=== PATIENT | female | born 1960 | race Two or more races ===

== ENCOUNTER 2020-04-19 08:32 | Emergency (ER) | payer MEDICAID, SELFPAY ==
[2020-04-19 08:42] VITALS: BP 125/78; PULSE 88; RESP 18; TEMP 36.8; O2SAT 97; BMI 26.5
--- NOTE | 2020-04-19 08:43 | ED.DENTAL ---
HPI - Dental/Oral General Chief complaint: Dental/Oral Stated complaint: dental pain Time Seen by Provider: 04/19/20 08:41 Source: patient Mode of arrival: ambulatory Limitations: no limitations History of Present Illness HPI Narrative: 59-year-old female borderline diabetic, status post extraction of 4 teeth last week ( right upper 2nd and 3rd molar, and right lower 2nd and 3rd molar ), patient was put on antibiotic clindamycin by the dentist for course of 5 days patient finished the course is still taste metal in her mouth with greenish discharge on the gum, but no discrete abscess. Patient supposed to see her dentist this week. Complaint: tooth pain Teeth map: 1. Right upper 2nd molar 2. right lower 3nd molar. 3. Right lower 2nd molar. 4. Right lower 3rd molar. Onset (ago): day(s) (7) Duration: constant Severity: moderate Severity scale (1-10): 10 ( Severe) Relieving factors: prescription analgesics Exacerbating factors: cold and heat Associated symptoms: other ( presents of white thrush in the roof of the mouth and on the tongue.) Related Data Previous Rx's Medication Instructions Recorded clindamycin HCl 150 mg PO TID #14 cap 04/19/20 nystatin 100,000 unit PO DAILY #60 ml 04/19/20 Allergies Allergy/AdvReac Type Severity Reaction Status Date / Time Penicillins Allergy Intermediate HIVES Unverified 03/20/20 15:25 sulfamethoxazole Allergy Intermediate BLISTERS- Unverified 03/20/20 15:25 [From BACTRIM] DELGADO - NERVE ENDINGS IN HAND/ERYTHEMA MULTIFORM trimethoprim [From BACTRIM] Allergy Intermediate BLISTERS- Unverified 03/20/20 15:25 DELGADO - NERVE ENDINGS IN HAND/ERYTHEMA MULTIFORM latex [Latex] Allergy Mild RASH Unverified 03/20/20 15:25 theophylline AdvReac Intermediate TACHYCARDIA Unverified 03/20/20 15:25 TEGADERM Allergy Intermediate SKIN TEARS Uncoded 03/20/20 15:25 From COMPAZINE AdvReac Severe SEIZURES Uncoded 03/20/20 15:25 Review of Systems Review of Systems: Yes all other systems are reviewed and are negative PMFSH Past Medical History Attestation statement: The following information was validated with the patient. Source: nursing notes reviewed Medical History (Updated 04/19/20 @ 09:00 by Oscar Telles MD) Borderline diabetes Surgical History (Updated 04/19/20 @ 08:44 by Agustina Araya RN) History of hysterectomy Social History Social History Alcohol intake: unknown Smoking Status: Current every day smoker Use of substances other than those prescribed or required for medical reasons: Unknown Advance Directives: No Advance Directives Information Provided: Yes Physical Exam Const: General: cooperative and healthy appearing Orientation/consciousness: oriented to person, oriented to place and oriented to time HENMT: Head: Yes normal to inspection Ears: hearing grossly normal bilaterally General nose exam: Normal external nose present Mouth: moist mucous membranes abnormal and other ( white thrush patches on roof of the mouth and on the tongue.) Throat: Yes posterior oropharynx normal Eyes: General: appearance normal, both eyes and all related structures Neck: Neck: Yes normal visual inspection and Yes no lymphadenopathy Chest: Chest palpation & inspection: normal inspection of the chest Resp: Effort & Inspection: normal respiratory effort Cardio: Jugular venous distension: no JVD GI: Inspection: Yes normal to inspection Skin: General skin exam: no rashes or lesions noted Neuro: General: oriented to person, oriented to place and oriented to time Extrem: General: Yes normal to inspection and Yes full ROM Course Course Course Narrative: 59-year-old female status post multiple dental extraction last week, patient finished a course of clindamycin ( cannot take penicillins for allergy), patient present with persistent of pain, potential persistent of infection for post extracted teeth and fungal stomatitis that is likely secondary to use of antibiotic. MDM - Dental/Oral MDM Narrative Medical decision making narrative: 59-year-old female borderline diabetes status post dental extraction recently, patient developed thrush stomatitis secondary to recent use of antibiotic, unfortunately patient is still need to use another 5 days of clindamycin for persistent of infection. 1. will prescribe another 5 days course of clindamycin. 2. neomycin for oral stomatitis. 3. To follow up primary dentist as patient is awaiting for calling in pain medication prescription. Differential Diagnosis Differential diagnosis: Likely gingival abscess, dental caries and toothache Medical Records Attestation: I reviewed the patient's medical records. Discharge Plan Discharge Clinical Impression: Toothache, Stomatitis Patient Disposition: Home, Self-Care Instructions: Gingivostomatitis (ED) Prescriptions: New nystatin 100,000 unit/mL suspension 100,000 unit PO DAILY Qty: 60 RF: 0 clindamycin HCl 150 mg capsule 150 mg PO TID Qty: 14 RF: 0
[2020-04-19] MEDS: oxyCODONE HCl Immed Release 5 MG TABLET PO (08:49)
== END 2020-04-19 09:15 | disposition home or self-care (01) ==
PROVIDERS: Emergency Provider Emergency Medicine; PCP Student in an Organized Health Care Education/Training Program
DX: K08.89 Other specified disorders of teeth and supporting structures (principal); K12.1 Other forms of stomatitis; F17.200 Nicotine dependence, unspecified, uncomplicated; R73.03 Prediabetes; Z86.718 Personal history of other venous thrombosis and embolism
CPT/HCPCS: 99283

== ENCOUNTER 2020-04-24 11:17 | Day surgery (SDC) | payer MEDICAID, SELFPAY ==
--- NOTE | 2020-04-23 10:33 | P.CONAN_ITS ---
Documented by User: Daily Aburto 04/23/20 10:38 HPI - Anesthesia Eval Consult details Narrative: 59yo F for EGD s/p gastric bypass 01/2019 last EGD with MAC 03/20/20 [facility] Past Medical History Medical History Anastomotic ulcer Anxiety Asthma Borderline diabetes Depression DVT (deep venous thrombosis) GERD (gastroesophageal reflux disease) High cholesterol Surgical History Surgical History History of hysterectomy S/P gastric bypass Social History Social History Alcohol intake: unknown Smoking Status: Current every day smoker Advance Directives: No Meds Allergies Allergy/AdvReac Type Severity Reaction Status Date / Time Penicillins Allergy Intermediate HIVES Verified 04/24/20 11:19 sulfamethoxazole Allergy Intermediate BLISTERS- Verified 04/24/20 11:19 [From BACTRIM] DELGADO - NERVE ENDINGS IN HAND/ERYTHEMA MULTIFORM trimethoprim [From BACTRIM] Allergy Intermediate BLISTERS- Verified 04/24/20 11:19 DELGADO - NERVE ENDINGS IN HAND/ERYTHEMA MULTIFORM latex [Latex] Allergy Mild RASH Verified 04/24/20 11:19 theophylline AdvReac Intermediate TACHYCARDIA Verified 04/24/20 11:19 TEGADERM Allergy Intermediate SKIN TEARS Uncoded 04/24/20 11:19 From COMPAZINE AdvReac Severe SEIZURES Uncoded 04/24/20 11:19 Exam Exam Date and Time: April 23, 2020 1033 Pertinent Lab Results Pertinent Lab Results: Laboratory Tests 02/01/20 02/01/20 00:37 00:37 WBC 7.7 Hgb 12.8 Hct 38.2 Plt Count 193 Sodium 141 Potassium 3.9 Chloride 105 BUN 15 Creatinine 0.74 Assessment and Plan Assessment Anesthesia Assessment: Chart Reviewed Documented by User: Dawson Peña 04/24/20 11:31 [facility] Past Medical History Medical History Anastomotic ulcer Anxiety Asthma Borderline diabetes Depression DVT (deep venous thrombosis) GERD (gastroesophageal reflux disease) High cholesterol Surgical History Surgical History History of hysterectomy S/P gastric bypass Social History Social History Alcohol intake: unknown Smoking Status: Current every day smoker Advance Directives: No Meds Allergies Allergy/AdvReac Type Severity Reaction Status Date / Time Penicillins Allergy Intermediate HIVES Verified 04/24/20 11:19 sulfamethoxazole Allergy Intermediate BLISTERS- Verified 04/24/20 11:19 [From BACTRIM] DELGADO - NERVE ENDINGS IN HAND/ERYTHEMA MULTIFORM trimethoprim [From BACTRIM] Allergy Intermediate BLISTERS- Verified 04/24/20 11:19 DELGADO - NERVE ENDINGS IN HAND/ERYTHEMA MULTIFORM latex [Latex] Allergy Mild RASH Verified 04/24/20 11:19 theophylline AdvReac Intermediate TACHYCARDIA Verified 04/24/20 11:19 TEGADERM Allergy Intermediate SKIN TEARS Uncoded 04/24/20 11:19 From COMPAZINE AdvReac Severe SEIZURES Uncoded 04/24/20 11:19 Exam Airway Mallampati Class: II TM Dist: >3cm Neck ROM: Full Loose/Missing/Broken Teeth: Yes Heart: [id number] Lungs: cta b/l Assessment and Plan Assessment Anesthesia Assessment: Anesthesia Plan Discussed, PAT Visit and Chart Reviewed Final Anesthetic Review NPO: Yes ASA Class: III Final Preanesthetic Review: No Changes in Pt Med Stat, Meds/Allgs Chart Reviewed, Consent Obtained/Reviewed and Anes Risks/Benef Reviewed Patient Risk: Low Procedure Risk: Low Assessment/Block/Sedation in SS: Assess/Block/Sedation-SS Anesthetic Plan Anesthetic Plan: MAC: Disposition: Standard PACU
--- NOTE | 2020-04-24 11:25 | P.HPSUR_ITS ---
Pre-Procedural Eval Section A The patient is an INPATIENT: No The History & Physical has been completed within 30 days and I have reviewed it.: Yes Section B Chief Complaint: ANASTOMIC ULCER Relevant Family History (Specify if Yes): No Relevant Social History: None Medical History: No relevant PMH History of Previous Operations: Relevant previous surgery/procedure and date(s) (laparoscopic gastric bypass) Allergies: Allergies Allergy/AdvReac Type Severity Reaction Status Date / Time Penicillins Allergy Intermediate HIVES Verified 04/24/20 11:19 sulfamethoxazole Allergy Intermediate BLISTERS- Verified 04/24/20 11:19 [From BACTRIM] DELGADO - NERVE ENDINGS IN HAND/ERYTHEMA MULTIFORM trimethoprim [From BACTRIM] Allergy Intermediate BLISTERS- Verified 04/24/20 11:19 DELGADO - NERVE ENDINGS IN HAND/ERYTHEMA MULTIFORM latex [Latex] Allergy Mild RASH Verified 04/24/20 11:19 theophylline AdvReac Intermediate TACHYCARDIA Verified 04/24/20 11:19 TEGADERM Allergy Intermediate SKIN TEARS Uncoded 04/24/20 11:19 From COMPAZINE AdvReac Severe SEIZURES Uncoded 04/24/20 11:19 Review of Systems Sugical H&P ROS: Negative: Constitution, Cardiovascular, Respiratory, Neurolog ical, Psychiatric, Hem-Onc, Allergic/Immunologic, Gastrointestinal, Genitourinary, Musculoskeletal, Integumentary, Endocrine and Eyes/Ears/Nose/Throat Exam Surgical H&P Exam: Normal: HEENT, Normal: Heart, Normal: Lungs, Normal: Extremities, Normal: Abdomen, Normal: Skin and Normal: Neurological Plan Diagnosis/Plan: Unchanged Patient has been examined and remains a candidate for the planned procedure
[2020-04-24 11:31] VITALS: BP 119/76; PULSE 75; RESP 16; TEMP 36.7; O2SAT 99; BMI 25.7
[2020-04-24] MEDS: Lactated Ringers 1,000 ML 100 ML IVCONT (11:47)
--- NOTE | 2020-04-24 12:04 | P.BOP_ITS ---
Brief Operative Note Date of procedure: 04/24/20 Pre-op diagnosis: Anastomotic ulcer Post-op diagnosis: other (Healed anastomotic ulcer) Procedure: PROCEDURE DATE: 07/19/2019 PREOPERATIVE DIAGNOSIS: Anastomotic ulcer, s/p gastric bypass POSTOPERATIVE DIAGNOSIS: Healed anastomotic ulcer PROCEDURE: [id number] Surgeon: Ronnie Pa M.D.. Ph.D. Property Management Specialist: None Anesthesia: IV sedation Estimated blood loss: None FINDINGS AND PROCEDURE: OPERATIVE INDICATIONS: The patient is a 59 year old female known to [place] who underwent a laparoscopic gastric bypass. The patient had excellent weight loss so far but developed an anastomotic ulcer for which she required TPN and IV PPI.. Based on this information I recommended an upper endoscopy for surveillance. Risks and complications of the surgery were discussed with the patient in advance particularly the possibility of perforation or bleeding that may require surgical intervention. The patient understood the risks and was in agreement with the plan. PROCEDURE: After informed consent was obtained by the patient, the patient was transferred to the Operating Room and was placed in the supine position. After successful induction of IV sedation, a mouth block was placed and the patient was placed in the left lateral decubitus position. An upper endoscopy was performed next, the oropharynx and esophagus appeared within the normal limits. There was no hiatal hernia. The z-line was smooth. The small pouch was entered, appeared to be of normal size. There was no gastritis and the gastrojejunostomy was patent. There was no anastomotic ulcer. At that point the scope was advanced into the proximal small intestine (proximal José Manuel limb) which appeared to be normal as well. The José Manuel limb and the pouch were decompressed and the scope was withdrawn from the patient's mouth. The patient was awaken and was transferred in stable condition to the Recovery Room for further care. I was present and performed all steps of the procedure. There were no residents to assist with this case. Ronnie Pa M.D., Ph.D. Surgeon: Donald Pa MD Anesthesia: MAC Estimated blood loss (mL): 0 IV fluids (mL): 300 Urine output (mL): 0 Pathology: none sent Condition: stable Disposition: PACU
[2020-04-24 12:09] VITALS: BP 96/60; PULSE 72; RESP 14; TEMP 36.2; O2SAT 100
[2020-04-24 12:13] VITALS: BP 92/55; PULSE 70; RESP 16; O2SAT 100
[2020-04-24 12:27] VITALS: BP 101/59; PULSE 67; RESP 16; TEMP 36.7; O2SAT 100
== END 2020-04-24 13:13 | disposition home or self-care (01) ==
PROVIDERS: PCP Student in an Organized Health Care Education/Training Program; Visit Provider Surgery
PROC: 0DJ08ZZ Inspection of Upper Intestinal Tract, Via Natural or Artificial Opening Endoscopic (ICD-10-PCS; CPT 43235; principal; 2020-04-24 12:10)
DX: K28.9 Gastrojejunal ulcer, unspecified as acute or chronic, without hemorrhage or perforation (principal); Z98.84 Bariatric surgery status; K21.9 Gastro-esophageal reflux disease without esophagitis; R73.03 Prediabetes; E78.00 Pure hypercholesterolemia, unspecified; J45.909 Unspecified asthma, uncomplicated; F32.9 Major depressive disorder, single episode, unspecified; F41.9 Anxiety disorder, unspecified; Z79.899 Other long term (current) drug therapy; Z88.0 Allergy status to penicillin; Z88.2 Allergy status to sulfonamides; Z91.040 Latex allergy status; Z88.8 Allergy status to other drugs, medicaments and biological substances
CPT/HCPCS: 43235

== ENCOUNTER 2020-05-13 09:08 | Outpatient (REF) | payer MEDICAID, SELFPAY ==
[2020-05-13 10:49] LABS: C Reactive Protein 0.05 mg/dL (< or = 0.50); Cholesterol 208 mg/dL; HDL Cholesterol 71 mg/dL; Iron 142 mcg/dL (30-160); LDL Cholesterol Calculated 123 mg/dl; Percent Iron Saturation 38 % (15-50); Phosphorus 3.5 mg/dL (2.7-4.5); Total Iron Binding Capacity 374 mcg/dL (228-428); Triglycerides 73 mg/dL; Unsaturated Iron Binding 232 ug/dL
[2020-05-13 10:59] LABS: Estimated Average Glucose 128 mg/dL; Hemoglobin A1C 150.4981 umol/L; Hemoglobin A1c % 6.1 %
[2020-05-13 11:13] LABS: TSH reflex Free T4 1.67 mIU/mL (0.32-4.0); Vitamin D 25-OH Total 18.6 ng/mL (>30)
[2020-05-13 11:18] LABS: Folate 11.3 ng/mL (> or = 4.0); Vitamin B12 304 pg/mL (200-900)
[2020-05-14 13:06] LABS: Calcium (PTHI) 9.5 mg/dL (8.6-10.4); PTHI 25 pg/mL (14-64)
[2020-05-15 11:12] LABS: Insulin Level Total 10.5 uIU/mL
[2020-05-16 15:57] LABS: Zinc 74 mcg/dL (60-130)
[2020-05-17 13:12] LABS: Vitamin B1 <6 nmol/L (8-30)
[2020-05-19 19:09] LABS: Vitamin A 49 mcg/dL (38-98)
== END 2020-05-13 09:09 | disposition home or self-care (01) ==
LOC: HO.LAB 09:08
PROVIDERS: PCP Student in an Organized Health Care Education/Training Program; Visit Provider Physician Assistant
DX: E66.3 Overweight (principal); Z68.35 Body mass index [BMI] 35.0-35.9, adult; Z98.84 Bariatric surgery status; M32.9 Systemic lupus erythematosus, unspecified; E66.9 Obesity, unspecified
CPT/HCPCS: 80061; 82306; 82607; 82746; 83036; 83525; 83540; 83735; 83970; 84100; 84425; 84443; 84590; 84630; 86140

== ENCOUNTER → 2020-05-16 08:37 | Outpatient (BNVA) | payer MEDICAID, SELFPAY | PROVIDERS: PCP Student in an Organized Health Care Education/Training Program; Visit Provider Dietitian, Registered | DX: Z76.89 Persons encountering health services in other specified circumstances (principal) ==

== ENCOUNTER → 2020-06-04 09:35 | Outpatient (BNVA) | payer MEDICAID, SELFPAY | PROVIDERS: PCP Student in an Organized Health Care Education/Training Program; Visit Provider Physician Assistant | DX: Z76.89 Persons encountering health services in other specified circumstances (principal) ==

== ENCOUNTER 2020-06-27 20:25 | Emergency (ER) | payer MEDICAID, SELFPAY ==
[2020-06-27 20:28] VITALS: BP 135/78; PULSE 79; RESP 16; TEMP 36.7; O2SAT 99; BMI 25.7
--- NOTE | 2020-06-27 21:14 | ED_ITS ---
HPI - Dental/Oral General Chief complaint: Dental/Oral Stated complaint: Dental pain Time Seen by Provider: 06/27/20 21:10 Source: patient Mode of arrival: ambulatory Limitations: no limitations History of Present Illness HPI Narrative: This is a 59-year-old female presents with worsening upper and lower dental discomfort 2 weeks status post removal of molars without any reported fevers, chills but increasing pain that she states is extending into her left ear. She has been unable to contact the dentist due to the holidays. She denies any difficulty swallowing or breathing. Related Data Home Medications Medication Instructions Recorded Confirmed sertraline 50 mg PO BEDTIME 04/24/20 06/04/20 hydrochlorothiazide 12.5 mg capsule 12.5 mg PO DAILY 05/09/20 06/04/20 pantoprazole 40 mg tablet,delayed 40 mg PO DAILY 05/09/20 06/04/20 release hydroxyzine HCl 25 mg tablet 50 mg PO BEDTIME tab 06/04/20 06/04/20 sucralfate 100 mg/mL oral 7.5 ml PO BID ml 06/04/20 06/04/20 suspension Previous Rx's Medication Instructions Recorded ondansetron HCl 4 mg tablet 4 mg PO Q8H PRN #60 tab 05/09/20 cholecalciferol (vitamin D3) 50 50 mcg PO DAILY #30 cap 05/15/20 mcg (2,000 unit) capsule sucralfate 1 gram tablet 1 g PO BID #60 tab 06/04/20 clindamycin HCl 600 mg PO TID 7 Days #42 cap 06/27/20 Allergies Allergy/AdvReac Type Severity Reaction Status Date / Time Penicillins Allergy Intermediate HIVES Verified 06/27/20 20:32 sulfamethoxazole Allergy Intermediate BLISTERS- Verified 06/27/20 20:32 [From BACTRIM] DELGADO - NERVE ENDINGS IN HAND/ERYTHEMA MULTIFORM trimethoprim [From BACTRIM] Allergy Intermediate BLISTERS- Verified 06/27/20 20:32 DELGADO - NERVE ENDINGS IN HAND/ERYTHEMA MULTIFORM latex [Latex] Allergy Mild RASH Verified 06/27/20 20:32 theophylline AdvReac Intermediate TACHYCARDIA Verified 06/27/20 20:32 TEGADERM Allergy Intermediate SKIN TEARS Uncoded 04/24/20 11:19 From COMPAZINE AdvReac Severe SEIZURES Uncoded 04/24/20 11:19 Review of Systems Review of Systems: Pertinent positives and negatives as stated in HPI 10 point review of systems otherwise negative. [facility] Past Medical History Source: nursing notes reviewed Medical History Anastomotic ulcer Anxiety Asthma Borderline diabetes Depression DVT (deep venous thrombosis) GERD (gastroesophageal reflux disease) High cholesterol Surgical History History of hysterectomy Hx of esophagogastroduodenoscopy S/P gastric bypass Family History Family History Unknown No problems noted. Mother Diabetes mellitus CHF (congestive heart failure) Kidney failure Cervical cancer Brother No problems noted. Brother No problems noted. Social History Social History Alcohol intake: never Smoking Status: Former smoker Cigarettes Per Day: 30 Smoked in Last 30 Days: No Use of substances other than those prescribed or required for medical reasons: No Advance Directives: No Advance Directives Information Provided: Yes Physical Exam Vital Signs: Vital Signs: Last Vital Signs Temp 98.0 F 06/27/20 20:28 Pulse 79 06/27/20 20:28 Resp 16 06/27/20 20:28 BP 135/78 06/27/20 20:28 Pulse Ox 99 06/27/20 20:28 Body Mass Index 25.7 VITAL SIGNS: Reviewed. GENERAL: Mild distress. HEAD: Normocephalic/atraumatic, EYES: PERRLA, EOMI EARS: Ext canals without abnormality, TMs non-bulging and non-erythematous NOSE: Nares patent bilateral OROPHARYNX: Sutures in place without purulence material on dental exam but gum tenderness noted at upper and lower without obvious evidence of abscess and no submental swelling NECK: Supple, no adenopathy LUNGS: Normal breath sounds. No adventitious sounds or accessory muscle use. SpO2<99> CARDIOVASCULAR: Regular rate and rhythm without noted murmurs, no JVD or lower extremity edema. ABDOMEN: Soft, non-tender, non-distended with bowel sounds. No rigidity. No guarding. No palpable masses or hernias noted MUSCULOSKELETAL: No tenderness, deformities, or effusions noted on gross inspection. EXTREMITIES: No cyanosis, clubbing or edema. SKIN: Inspection of the skin reveals no rashes, ulcerations, jaundice, pallor, or petechiae. NEUROLOGIC: Alert and oriented x 4. Strength and sensation to light touch were grossly intact x 4. Course Course Course Narrative: This is a 59-year-old female with suspected dental infection no evidence for Hosea's angina, trismus and patient will be treated with combination analgesics as well as initial antibiotics. On re-evaluation she stated that she is feeling much better and is being discharged in stable condition with a prescription for antibiotics and instructed to follow-up with her dentist in the morning. Discharge Plan Discharge Clinical Impression: Dental abscess Patient Disposition: Home, Self-Care Instructions: Dental Abscess (ED) Additional Instructions: 1. Tylenol 1000 mg, orally, every 6 hours as needed for pain control. Do not exceed 4000 mg within 24 hours. 2. Due to your gastric bypass surgery would recommend attempting to medicate any further pain with [id number] as well as ice packs and continue with antibiotics. 3. Please follow-up with your dentist in the morning. 4. Please do not hesitate to return the emergency department should you experience any worsening symptoms, fevers, chills, inability to swallow or difficulty breathing. Prescriptions: New clindamycin HCl 300 mg capsule 600 mg PO TID 7 Days Qty: 42 RF: 0 No Action cholecalciferol (vitamin D3) 50 mcg (2,000 unit) capsule 50 mcg PO DAILY Qty: 30 RF: 6 sertraline 50 mg Tablet 50 mg PO BEDTIME RF: 0 hydroxyzine HCl 25 mg tablet 50 mg PO BEDTIME RF: 0 sucralfate [Carafate] 1 gram tablet 1 g PO BID Qty: 60 RF: 6 hydrochlorothiazide 12.5 mg capsule 12.5 mg PO DAILY RF: 0 pantoprazole 40 mg tablet,delayed release (DR/EC) 40 mg PO DAILY RF: 0 ondansetron HCl 4 mg tablet 4 mg PO Q8H PRN (Reason: nausea and vomiting) Qty: 60 RF: 4 sucralfate [Carafate] 100 mg/mL suspension 7.5 ml PO BID RF: 0 Referrals: Joyce Tapia MD [Primary Care Provider] - 2 days (Re-evaluation dental inf ections status post extraction.)
[2020-06-27] MEDS: Acetaminophen 325 MG TABLET 975 MG PO (21:26)
[2020-06-27] MEDS: Ketorolac Tromethamine 15 MG/ML VIAL IM (21:27)
== END 2020-06-27 22:17 | disposition home or self-care (01) ==
PROVIDERS: Emergency Provider Student in an Organized Health Care Education/Training Program; PCP Student in an Organized Health Care Education/Training Program
DX: K04.7 Periapical abscess without sinus (principal)
CPT/HCPCS: 96372; 99284; J1885

== ENCOUNTER → 2020-07-02 08:35 | Outpatient (BNVA) | payer MEDICAID, SELFPAY | PROVIDERS: PCP Student in an Organized Health Care Education/Training Program; Visit Provider Physician Assistant | DX: Z76.89 Persons encountering health services in other specified circumstances (principal) ==

== ENCOUNTER 2020-07-22 16:10 | Outpatient (REF) | payer MEDICAID, SELFPAY | END 2020-07-22 16:11 | disposition home or self-care (01) | LOC: HO.LAB 16:10 | PROVIDERS: PCP Student in an Organized Health Care Education/Training Program; Visit Provider Student in an Organized Health Care Education/Training Program | DX: Z20.822 Contact with and (suspected) exposure to COVID-19 (principal) | CPT/HCPCS: 36415; C9803; U0003 ==

== ENCOUNTER 2020-08-14 09:32 | Day surgery (SDC) | payer MEDICAID, SELFPAY ==
--- NOTE | 2020-08-13 10:38 | P.CONAN_ITS ---
Documented by User: Daily Aburto 08/13/20 10:40 HPI - Anesthesia Eval Consult details Narrative: 59yo F for Upper Endoscopy s/p gastric bypass 01/2019 last EGD with MAC 04/24/20 [facility] Active Problems Active Problems: All Active Problems (Updated 06/28/20 @ 00:00 by Background Daemcornel) Anastomotic ulcer (Acute) S/P gastric bypass (Acute) Overweight (BMI 25.0-29.9) (Acute) Borderline diabetes (Acute) Past Medical History Medical History Anastomotic ulcer Anxiety Asthma Borderline diabetes Depression DVT (deep venous thrombosis) GERD (gastroesophageal reflux disease) High cholesterol Family History Family History Unknown No problems noted. Mother Diabetes mellitus CHF (congestive heart failure) Kidney failure Cervical cancer Brother No problems noted. Brother No problems noted. Surgical History Surgical History History of hysterectomy Hx of esophagogastroduodenoscopy S/P gastric bypass Social History Social History Alcohol intake: never Smoking Status: Former smoker Cigarettes Per Day: 30 Advance Directives: No Advance Directives Information Provided: Yes Meds Allergies Allergy/AdvReac Type Severity Reaction Status Date / Time Penicillins Allergy Intermediate HIVES Verified 06/27/20 20:32 sulfamethoxazole Allergy Intermediate BLISTERS- Verified 06/27/20 20:32 [From BACTRIM] DELGADO - NERVE ENDINGS IN HAND/ERYTHEMA MULTIFORM trimethoprim [From BACTRIM] Allergy Intermediate BLISTERS- Verified 06/27/20 20:32 DELGADO - NERVE ENDINGS IN HAND/ERYTHEMA MULTIFORM latex [Latex] Allergy Mild RASH Verified 06/27/20 20:32 theophylline AdvReac Intermediate TACHYCARDIA Verified 06/27/20 20:32 TEGADERM Allergy Intermediate SKIN TEARS Uncoded 04/24/20 11:19 From COMPAZINE AdvReac Severe SEIZURES Uncoded 04/24/20 11:19 Home Medications Medication Instructions Recorded Confirmed Last Taken Type sertraline 50 mg PO BEDTIME 04/24/20 07/02/20 Unknown History hydrochlorothiazide 12.5 mg capsule 12.5 mg PO DAILY 05/09/20 07/02/20 Unknown History pantoprazole 40 mg tablet,delayed 40 mg PO DAILY 05/09/20 07/02/20 Unknown Hist ory release hydroxyzine HCl 25 mg tablet 50 mg PO BEDTIME tab 06/04/20 07/02/20 Unknown History Exam Exam Date and Time: August 13, 2020 1038 Assessment and Plan Assessment Anesthesia Assessment: Chart Reviewed Documented by User: Dawson Peña 08/14/20 11:09 PMF Past Medical History Medical History Anastomotic ulcer Anxiety Asthma Borderline diabetes Depression DVT (deep venous thrombosis) GERD (gastroesophageal reflux disease) High cholesterol Family History Family History Unknown No problems noted. Mother Diabetes mellitus CHF (congestive heart failure) Kidney failure Cervical cancer Brother No problems noted. Brother No problems noted. Surgical History Surgical History History of hysterectomy Hx of esophagogastroduodenoscopy S/P gastric bypass Social History Social History Alcohol intake: never Smoking Status: Former smoker Cigarettes Per Day: 30 Advance Directives: No Advance Directives Information Provided: Yes Meds Allergies Allergy/AdvReac Type Severity Reaction Status Date / Time Penicillins Allergy Intermediate HIVES Verified 06/27/20 20:32 sulfamethoxazole Allergy Intermediate BLISTERS- Verified 06/27/20 20:32 [From BACTRIM] DELGADO - NERVE ENDINGS IN HAND/ERYTHEMA MULTIFORM trimethoprim [From BACTRIM] Allergy Intermediate BLISTERS- Verified 06/27/20 20:32 DELGADO - NERVE ENDINGS IN HAND/ERYTHEMA MULTIFORM latex [Latex] Allergy Mild RASH Verified 06/27/20 20:32 theophylline AdvReac Intermediate TACHYCARDIA Verified 06/27/20 20:32 TEGADERM Allergy Intermediate SKIN TEARS Uncoded 04/24/20 11:19 From COMPAZINE AdvReac Severe SEIZURES Uncoded 04/24/20 11:19 Home Medications Medication Instructions Recorded Confirmed Last Taken Type sertraline 50 mg PO BEDTIME 04/24/20 07/02/20 Unknown History hydrochlorothiazide 12.5 mg capsule 12.5 mg PO DAILY 05/09/20 07/02/20 Unknown History pantoprazole 40 mg tablet,delayed 40 mg PO DAILY 05/09/20 07/02/20 Unknown History release hydroxyzine HCl 25 mg tablet 50 mg PO BEDTIME tab 06/04/20 07/02/20 Unknown History Exam Airway Mallampati Class: II TM Dist: >3cm Neck ROM: Full Loose/Missing/Broken Teeth: No Heart: rrr+s1s2 Lungs: cta b/l Assessment and Plan Assessment Anesthesia Assessment: Anesthesia Plan Discussed, PAT Visit and Chart Reviewed Final Anesthetic Review NPO: Yes ASA Class: II Final Preanesthetic Review: No Changes in Pt Med Stat, Meds/Allgs Chart Reviewed, Consent Obtained/Reviewed and Anes Risks/Benef Reviewed Patient Risk: Intermediate Procedure Risk: Low Assessment/Block/Sedation in SS: Assess/Block/Sedation-SS Anesthetic Plan Anesthetic Plan: MAC: and Agree w/ Assess. and Plan Disposition: Standard PACU
--- NOTE | 2020-08-14 07:50 | P.HPSUR_ITS ---
Pre-Procedural Eval Section A The patient is an INPATIENT: No The History & Physical has been completed within 30 days and I have reviewed it.: No Section B Chief Complaint: postgastric surgery syndrome Details of Present Illness: abdominal pain at left upper quadrant Relevant Family History (Specify if Yes): No Relevant Social History: None Present Medications: see Short Stay Collaborative assessment Medical History: No relevant PMH History of Previous Operations: Relevant previous surgery/procedure and date(s) (history of gastric bypass & anastomotic ulcer) Allergies: Allergies Allergy/AdvReac Type Severity Reaction Status Date / Time Penicillins Allergy Intermediate HIVES Verified 06/27/20 20:32 sulfamethoxazole Allergy Intermediate BLISTERS- Verified 06/27/20 20:32 [From BACTRIM] DELGADO - NERVE ENDINGS IN HAND/ERYTHEMA MULTIFORM trimethoprim [From BACTRIM] Allergy Intermediate BLISTERS- Verified 06/27/20 20:32 DELGADO - NERVE ENDINGS IN HAND/ERYTHEMA MULTIFORM latex [Latex] Allergy Mild RASH Verified 06/27/20 20:32 theophylline AdvReac Intermediate TACHYCARDIA Verified 06/27/20 20:32 TEGADERM Allergy Intermediate SKIN TEARS Uncoded 04/24/20 11:19 From COMPAZINE AdvReac Severe SEIZURES Uncoded 04/24/20 11:19 Review of Systems Sugical H&P ROS: Negative: Constitution, Cardiovascular, Respiratory, N eurological, Psychiatric, Hem-Onc, Allergic/Immunologic, Genitourinary, Musculoskeletal, Integumentary, Endocrine and Eyes/Ears/Nose/Throat and Yes, Specify: Gastrointestinal (abdominal pain and nausea) Exam Surgical H&P Exam: Normal: HEENT, Normal: Heart, Normal: Lungs, Normal: Extremities, Normal: Skin and Normal: Neurological and Significant Findings: Ab domen (epigastric tenderness) Plan Diagnosis/Plan: Unchanged (Upper endoscopy to assess patient's symptoms) I have reviewed the history and physical and performed a pertinent physical examination on my patient. No changes have occurred unless specified.
--- NOTE | 2020-08-14 10:35 | PM.OP ---
Brief Operative Note Date of Service: 08/14/20 Pre-op diagnosis: Abdominal pain, s/p gastric bypass Post-op diagnosis: same Procedure: PROCEDURE DATE: 08/14/2020 PREOPERATIVE DIAGNOSIS: Abdominal pain, s/p gastric bypass POSTOPERATIVE DIAGNOSIS: Normal post bypass anatomy. Small hiatal hernia. PROCEDURE: [id number] Surgeon: Ronnie Pa M.D.. Ph.D. Human Resources Project Manager: None Anesthesia: IV sedation Estimated blood loss: Minimal FINDINGS AND PROCEDURE: OPERATIVE INDICATIONS: The patient is a 59 year old female known to nm who underwent a laparoscopic gastric bypass by nm. The patient had very good weight loss so far but had developed an anastomotic ulcer which required extensive treatment but eventually healed proven by endoscopy. Now she presents for a new occurrence of abdominal pain in the same area. Based on this information I recommended an upper endoscopy to evaluate the patient's symptoms. Risks and complications of the surgery were discussed with the patient in advance particularly the possibility of perforation or bleeding that may require surgical intervention. The patient understood the risks and was in agreement with the plan. PROCEDURE: After informed consent was obtained by the patient, the patient was transferred to the Operating Room and was placed in the supine position. After successful induction of IV sedation, a mouth block was placed and the patient was placed in the left lateral decubitus position. An upper endoscopy was performed next, the oropharynx and esophagus appeared within the normal limits. There was a small hiatal hernia. The z-line was smooth. The small pouch was entered, appeared to be of normal size. There was no gastritis and the gastrojejunostomy was patent. There was no anastomotic ulcer. At that point the scope was advanced into the proximal small intestine (proximal José Manuel limb) up to 75cm from incisors which appeared to be normal as well. The José Manuel limb and the pouch were decompressed and the scope was withdrawn from the patient's mouth. The patient was awaken and was transferred in stable condition to the Recovery Room for further care. I was present and performed all steps of the procedure. There were no residents to assist with this case. Ronnie Pa M.D., Ph.D. Surgeon: Donald Pa MD Anesthesia: MAC Estimated blood loss (mL): 0 IV fluids (mL): 400 Urine output (mL): 0 (No Dawn to record) Pathology: other (1) GE junction x2, distal esophagus x2, 3) gastric pouch x1) Condition: stable Disposition: PACU
[2020-08-14 11:13] VITALS: BP 124/66; PULSE 71; RESP 16; TEMP 36.6; O2SAT 99; BMI 26.5
[2020-08-14 11:18] LABS: Glucose, Whole Blood 84 mg/dL (60-115)
[2020-08-14] MEDS: Lactated Ringers 1,000 ML 100 ML IVCONT (11:23)
[2020-08-14 11:26] LABS: COVID-19 Test Negative (Negative); IDNOW Serial# 9DD0AD1C
[2020-08-14 11:53] VITALS: BP 102/64; PULSE 70; RESP 16; TEMP 36.4; O2SAT 99
[2020-08-14 12:09] VITALS: BP 107/65; PULSE 66; RESP 16; TEMP 36.4; O2SAT 97
[2020-08-14 12:51] VITALS: BP 116/67; PULSE 75; RESP 16; TEMP 36.4; O2SAT 98
== END 2020-08-14 13:15 | disposition home or self-care (01) ==
PROVIDERS: PCP Student in an Organized Health Care Education/Training Program; Visit Provider Surgery
PROC: 0DJ08ZZ Inspection of Upper Intestinal Tract, Via Natural or Artificial Opening Endoscopic (ICD-10-PCS; CPT 43235; principal; 2020-08-14 11:40)
DX: K91.1 Postgastric surgery syndromes (principal); R10.9 Unspecified abdominal pain; K44.9 Diaphragmatic hernia without obstruction or gangrene; Z87.19 Personal history of other diseases of the digestive system; Z98.84 Bariatric surgery status
CPT/HCPCS: 43235; 36415; 82947; 87635; J2250

== ENCOUNTER 2020-08-16 08:26 | Outpatient (REF) | payer MEDICAID, SELFPAY ==
--- NOTE | ~2020-08-16 | MM_ITS ---
EXAMINATION: MM SCREENING DIGITAL BREAST TOMOSYNTHESIS, BILATERAL CLINICAL INFORMATION: Screening. Asymptomatic. Chronic history hidradenitis suppurativa. The lifetime risk of breast cancer based on the Tyrer-Cuzick Model is 8%. COMPARISON: Mammography: 10/27/2018, 04/25/2017, 01/26/2016 TECHNIQUE: Digital breast tomosynthesis is performed in both the craniocaudal and mediolateral oblique views along with computer-aided detection (CAD). Synthesized 2D images are generated from the tomosynthesis. Additional left CC view is provided. FINDINGS: There are scattered areas of fibroglandular density (ACR BI-RADS breast composition Category b). There are no significant masses, abnormal calcifications, or other abnormalities. Parenchymal pattern is similar to prior exams. Axillary nodes are stable. The skin contours are smooth. No focal skin thickening. No coarsening of the Lonnie's ligaments. MM/MM tomosynthesis screening BI IMPRESSION: No significant changes from prior exams. ASSESSMENT: BI-RADS 2: Benign RECOMMENDATION: Routine annual mammography screening. This patient's information was entered into a reminder system with a target due date for their next mammogram.
== END 2020-08-16 08:27 | disposition home or self-care (01) ==
LOC: HO.MAMMO 08:26
PROVIDERS: Visit Provider Student in an Organized Health Care Education/Training Program
DX: Z12.31 Encounter for screening mammogram for malignant neoplasm of breast (principal)
CPT/HCPCS: 77063; 77067

== ENCOUNTER 2020-09-01 10:58 | Outpatient (REF) | payer MEDICAID, SELFPAY ==
[2020-09-03 21:22] LABS: TS Negative Control Passed; TS Panel A 0; TS Panel B 0; TS Positive Control Passed; TSpotTB Negative (SeeBelow)
== END 2020-09-01 10:59 | disposition home or self-care (01) ==
LOC: HO.LAB 10:58
PROVIDERS: PCP Student in an Organized Health Care Education/Training Program; Visit Provider Student in an Organized Health Care Education/Training Program
DX: Z11.1 Encounter for screening for respiratory tuberculosis (principal)
CPT/HCPCS: 36415; 86481

== ENCOUNTER → 2020-09-03 15:14 | Outpatient (BNVA) | payer MEDICAID, SELFPAY | PROVIDERS: PCP Student in an Organized Health Care Education/Training Program; Visit Provider Surgery | DX: L72.0 Epidermal cyst (principal) | CPT/HCPCS: 99212 ==

== ENCOUNTER 2020-09-15 06:11 | Day surgery (SDC) | payer MEDICAID, SELFPAY ==
[2020-09-09 09:33] VITALS: BMI 29.0
--- NOTE | 2020-09-12 08:43 | P.CONAN_ITS ---
Documented by User: Daily Criselda 09/12/20 08:45 HPI - Anesthesia Eval Consult details Narrative: 59yo F for Excision of Cysts x2, Upper Back and Right Groin s/p gastric bypass with mult egd PMFSH Active Problems Active Problems: All Active Problems (Updated 09/04/20 @ 14:32 by Flaco Zambrano MD) Overweight (BMI 25.0-29.9) (Acute) Epidermal inclusion cyst (Acute) Anastomotic ulcer (Acute) S/P gastric bypass (Acute) Borderline diabetes (Acute) Past Medical History Medical History Anastomotic ulcer Anxiety Asthma Borderline diabetes Depression DVT (deep venous thrombosis) GERD (gastroesophageal reflux disease) High cholesterol Family History Family History Unknown No problems noted. Mother Diabetes mellitus CHF (congestive heart failure) Kidney failure Cervical cancer Brother No problems noted. Brother No problems noted. Surgical History Surgical History History of hysterectomy Hx of esophagogastroduodenoscopy S/P gastric bypass Social History Social History Are you a primary career manager to a significant other at home: No Do you presently have visiting nurse or other home services: No Alcohol intake: never Smoking Status: Current some day smoker Cigarettes Per Day: 30 Years Smoked: 30 Smoked in Last 30 Days: Yes Use of substances other than those prescribed or required for medical reasons: No Have you been hit, kicked, punched, or otherwise hurt by someone within the past year? If so, by whom?: No Advance Directives Information Provided: No Recently lost weight without trying: No Meds Allergies Allergy/AdvReac Type Severity Reaction Status Date / Time Penicillins Allergy Intermediate HIVES Verified 09/15/20 06:45 sulfamethoxazole Allergy Intermediate BLISTERS- Verified 09/15/20 06:45 [From BACTRIM] DELGADO - NERVE ENDINGS IN HAND/ERYTHEMA MULTIFORM trimethoprim [From BACTRIM] Allergy Intermediate BLISTERS- Verified 09/15/20 06:45 DELGADO - NERVE ENDINGS IN HAND/ERYTHEMA MULTIFORM latex [Latex] Allergy Mild RASH Verified 09/15/20 06:45 theophylline AdvReac Intermediate TACHYCARDIA Verified 09/15/20 06:45 TEGADERM Allergy Intermediate SKIN TEARS Uncoded 04/24/20 11:19 From COMPAZINE AdvReac Severe SEIZURES Uncoded 04/24/20 11:19 Home Medications Medication Instructions Recorded Confirmed Last Taken Type sertraline 50 mg PO BEDTIME 04/24/20 09/09/20 Unknown History hydrochlorothiazide 12.5 mg capsule 12.5 mg PO DAILY 05/09/20 09/09/20 Unknown History hydroxyzine HCl 25 mg tablet 50 mg PO BEDTIME tab 06/04/20 09/09/20 Unknown History Exam Exam Date and Time: September 12, 2020 0843 Height,Weight and Vital Signs: Height 5 ft 3 in Weight 74.2 kg Pertinent Lab Results Pertinent Lab Results: Laboratory Tests 02/01/20 02/01/20 00:37 00:37 WBC 7.7 Hgb 12.8 Hct 38.2 Plt Count 193 Sodium 141 Potassium 3.9 Chloride 105 BUN 15 Creatinine 0.74 Assessment and Plan Assessment Anesthesia Assessment: Chart Reviewed Documented by User: Tamiko Pacheco 09/15/20 07:29 PMFSH Past Medical History Medical History Anastomotic ulcer Anxiety Asthma Borderline diabetes Depression DVT (deep venous thrombosis) GERD (gastroesophageal reflux disease) High cholesterol Family History Family History Unknown No problems noted. Mother Diabetes mellitus CHF (congestive heart failure) Kidney failure Cervical cancer Brother No problems noted. Brother No problems noted. Surgical History Surgical History History of hysterectomy Hx of esophagogastroduodenoscopy S/P gastric bypass Social History Social History Are you a primary career manager to a significant other at home: No Do you presently have visiting nurse or other home services: No Alcohol intake: never Smoking Status: Current some day smoker Cigarettes Per Day: 30 Years Smoked: 30 Smoked in Last 30 Days: Yes Use of substances other than those prescribed or required for medical reasons: No Have you been hit, kicked, punched, or otherwise hurt by someone within the past year? If so, by whom?: No Advance Directives Information Provided: No Recently lost weight without trying: No Meds Allergies Allergy/AdvReac Type Severity Reaction Status Date / Time Penicillins Allergy Intermediate HIVES Verified 09/15/20 06:45 sulfamethoxazole Allergy Intermediate BLISTERS- Verified 09/15/20 06:45 [From BACTRIM] DELGADO - NERVE ENDINGS IN HAND/ERYTHEMA MULTIFORM trimethoprim [From BACTRIM] Allergy Intermediate BLISTERS- Verified 09/15/20 06:45 DELGADO - NERVE ENDINGS IN HAND/ERYTHEMA MULTIFORM latex [Latex] Allergy Mild RASH Verified 09/15/20 06:45 theophylline AdvReac Intermediate TACHYCARDIA Verified 09/15/20 06:45 TEGADERM Allergy Intermediate SKIN TEARS Uncoded 04/24/20 11:19 From COMPAZINE AdvReac Severe SEIZURES Uncoded 04/24/20 11:19 Home Medications Medication Instructions Recorded Confirmed Last Taken Type sertraline 50 mg PO BEDTIME 04/24/20 09/09/20 Unknown History hydrochlorothiazide 12.5 mg capsule 12.5 mg PO DAILY 05/09/20 09/09/20 Unknown History hydroxyzine HCl 25 mg tablet 50 mg PO BEDTIME tab 06/04/20 09/09/20 Unknown History Exam Airway Mallampati Class: II TM Dist: >3cm Neck ROM: Full Loose/Missing/Broken Teeth: No Heart: RRR Lungs: CTA Assessment and Plan Assessment Anesthesia Assessment: Anesthesia Plan Discussed and Chart Reviewed Final Anesthetic Review NPO: Yes ASA Class: II Final Preanesthetic Review: Meds/Allgs Chart Reviewed, Consent Obtained/Reviewed and Anes Risks/Benef Reviewed Patient Risk: Low Procedure Risk: Low Anesthetic Plan Anesthetic Plan: GA Disposition: Standard PACU
[2020-09-15] VITALS (8 sets, daily range): BP systolic 106–138; BP diastolic 59–75; PULSE 67–77; RESP 16–18; TEMP 36.1–37.1; O2SAT 96–100
[2020-09-15 06:39] LABS: Glucose, Whole Blood 130 mg/dL (60-115)
[2020-09-15] MEDS: Lactated Ringers 1,000 ML 100 ML IVCONT (06:42)
[2020-09-15] MEDS: vancomycin HCL 1,000 MG in 0.9 % Sodium Chloride 250 ML 270 MG IV (06:43)
--- NOTE | 2020-09-15 07:17 | MHC.SHP ---
Pre-Procedural Eval Section A The patient is an INPATIENT: No Changes since office visit: Yes Patient answered all questions; No Cold of Flu in the past 2 weeks, No New Medical Problems and No Changes in Medication The History & Physical has been completed within 30 days and I have reviewed it.: Yes Section B Chief Complaint: Epidermal inclusion cyst Allergies: Allergies Allergy/AdvReac Type Severity Reaction Status Date / Time Penicillins Allergy Intermediate HIVES Verified 09/15/20 06:45 sulfamethoxazole Allergy Intermediate BLISTERS- Verified 09/15/20 06:45 [From BACTRIM] DELGADO - NERVE ENDINGS IN HAND/ERYTHEMA MULTIFORM trimethoprim [From BACTRIM] Allergy Intermediate BLISTERS- Verified 09/15/20 06:45 DELGADO - NERVE ENDINGS IN HAND/ERYTHEMA MULTIFORM latex [Latex] Allergy Mild RASH Verified 09/15/20 06:45 theophylline AdvReac Intermediate TACHYCARDIA Verified 09/15/20 06:45 TEGADERM Allergy Intermediate SKIN TEARS Uncoded 04/24/20 11:19 From COMPAZINE AdvReac Severe SEIZURES Uncoded 04/24/20 11:19 Review of Systems Sugical H&P ROS: Yes, Specify: Integumentary (New lesion in the lower left buttock) Exam Surgical H&P Exam: Not Evaluated: Skin (new lesion left buttock, patient requests excision) Plan Diagnosis/Plan: Change (I discussed excision of the new lesion of the left buttock as well and she gives her consent.) I have reviewed the history and physical and performed a pertinent physical examination on my patient. No changes have occurred unless specified.
--- NOTE | 2020-09-15 08:40 | P.BOP_ITS ---
Brief Operative Note Date of Service: 09/15/20 <NICHOLAS Garcia Last Filed: 09/15/20 08:41> Pre-op diagnosis: infected skin cysts of left back, left buttock and right groin <NICHOLAS Garcia Last Filed: 09/15/20 08:41> Post-op diagnosis: same <NICHOLAS Garcia Last Filed: 09/15/20 08:41> Procedure: Excision of infected skin cysts of left back, left buttock and right groin <NICHOLAS Garcia Last Filed: 09/15/20 08:41> Surgeon: OZZIE GUERRERO MD <NICHOLAS Garcia Last Filed: 09/15/20 08:41> Anesthesia: GETA <NICHOLAS Garcia Last Filed: 09/15/20 08:41> Chemical Compounder: Nata Leon <NICHOLAS Garcia Last Filed: 09/15/20 08:41> Estimated blood loss (mL): 5 <NICHOLAS Garcia Last Filed: 09/15/20 08:41> Pathology: other (infected skin cysts of left back, left buttock and right groin x 2) <NICHOLAS Garcia Last Filed: 09/15/20 08:41> Condition: stable <NICHOLAS Garcia Last Filed: 09/15/20 08:41> Disposition: PACU <NICHOLAS Garcia Last Filed: 09/15/20 08:41>
--- NOTE | 2020-09-15 08:40 | W.PM.OPN ---
Operative Note Operative Note Date of Service: 09/15/20 Narrative: Preoperative diagnosis: Infected skin cyst back, left buttock, right groin Postoperative diagnosis: Same Procedure: Excision of infected cyst upper back, left buttock, and right groin. Surgeon: Flaco Zambrano MD [employer]illery Operations Specialist: Nata Leon PA-C Anesthesia: General LMA Indications for procedure: 59-year-old female presenting with previous history of multiple skin infections status post previous excisions in the groin now presenting with an infected cyst x2 in the upper back, 1 cyst the left buttock, and 2 cysts in the right groin. She has requested excision of these because of the recurrent infections. Operative findings: Patient is found to have 2 previously infected cyst of the upper back each measuring 1 cm in diameter. In the right groin to adjacent cyst in the right groin were identified measuring approximately 0.5 cm in diameter. The left buttock cyst measured approximately 1 cm in diameter. Specimen: Infected cyst of upper back, left buttock and right groin Estimated blood loss: 2 mL Complications: None Procedure details: Patient was placed in a supine position and administered general anesthesia. Patient was then placed in a right lateral decubitus position. The patient's upper back and left buttock were prepped with Betadine and draped in a sterile fashion. A surgical time-out was called and consent confirmed. Patient received preoperative antibiotics and Venodyne boots were in place. Local anesthesia consisting of 0.5% Sensorcaine with epinephrine was then infiltrated around the 2 upper back lesions. Elliptical incision was then created with a scalpel carried out through subcutaneous tissue around the cyst lesion. Both lesions were excised and sent to pathology for further examination. Skin was then closed using interrupted 4 0 nylon sutures. Attention was then directed to the left buttock where again local anesthesia was administered around the lesion. An elliptical incision was then created with a scalpel carried out through subcutaneous tissue. The skin cyst was excised and sent to pathology for further examination. Skin was again closed using interrupted 4-0 nylon sutures. Patient was then placed in a supine position. The skin over the right groin was prepped with Betadine and draped in a sterile fashion. Local anesthesia consisting of 0.5% Sensorcaine with epinephrine was then infiltrated around the 2 right groin cyst. Again elliptical incisions were made around each lesion in lesions excised sent to pathology. Skin was closed in both incisions using interrupted 4-0 nylon sutures. Sterile dressings consisting of Tegaderm 2 x 2 gauze were applied to each of the excision sites. Patient tolerated the procedure well. Sponge, instrument, needle counts reported as correct. The patient was transferred to PACU in stable condition.
[2020-09-15] MEDS: Acetaminophen 325 MG TABLET 650 MG PO (09:29)
[2020-09-15] MEDS: oxyCODONE HCl Immed Release 5 MG TABLET PO (09:42)
== END 2020-09-15 10:39 | disposition home or self-care (01) ==
PROVIDERS: PCP Student in an Organized Health Care Education/Training Program; Visit Provider Surgery
PROC: (CPT 11402; principal; 2020-09-15 07:30)
DX: L72.0 Epidermal cyst (principal); J45.909 Unspecified asthma, uncomplicated; R73.03 Prediabetes; Z98.84 Bariatric surgery status; Z79.899 Other long term (current) drug therapy; Z91.040 Latex allergy status; Z88.0 Allergy status to penicillin; Z88.2 Allergy status to sulfonamides; Z88.8 Allergy status to other drugs, medicaments and biological substances
CPT/HCPCS: 11402; 11401 ×2; 11400; 82947; 88304; J1100; J2250; J2405; J3010; J3370

== ENCOUNTER → 2020-09-26 08:18 | Outpatient (BNVA) | payer MEDICAID, SELFPAY | PROVIDERS: PCP Student in an Organized Health Care Education/Training Program; Visit Provider Physician Assistant | DX: L72.0 Epidermal cyst (principal); E66.3 Overweight; Z68.27 Body mass index [BMI] 27.0-27.9, adult; Z98.84 Bariatric surgery status; Z71.3 Dietary counseling and surveillance; Z79.899 Other long term (current) drug therapy | CPT/HCPCS: 99212 ==

== ENCOUNTER → 2020-10-28 10:19 | Outpatient (BNVA) | payer MEDICAID, SELFPAY | PROVIDERS: PCP Student in an Organized Health Care Education/Training Program; Visit Provider Orthopaedic Surgery | DX: M65.332 Trigger finger, left middle finger (principal); M65.342 Trigger finger, left ring finger | CPT/HCPCS: 99202 ==

== ENCOUNTER 2020-10-28 21:21 | Emergency (ER) | payer MEDICAID, SELFPAY ==
--- NOTE | 2020-10-28 | ECG_ITS ---
Test Reason : CP Blood Pressure : / mmHG Vent. Rate : 074 BPM Atrial Rate : 074 BPM P-R Int : 158 ms QRS Dur : 074 ms QT Int : 366 ms P-R-T Axes : 011 033 032 degrees QTc Int : 406 ms Normal sinus rhythm Normal ECG When compared with ECG of 06-MAR-2020 20:20, No significant change was found Referred By: Generic ED Physician Electronically Signed By:RODNEY CALHOUN MD
[2020-10-28 21:39] VITALS: BP 110/62; PULSE 79; RESP 14; TEMP 36.4; O2SAT 98; BMI 26.5
== END 2020-10-29 01:59 | disposition left against medical advice (07) ==
PROVIDERS: Emergency Provider Emergency Medicine; PCP Student in an Organized Health Care Education/Training Program
DX: R07.9 Chest pain, unspecified (principal)
CPT/HCPCS: 93005; 99283

== ENCOUNTER 2020-11-22 22:29 | Emergency (ER) | payer MEDICAID, SELFPAY ==
[2020-11-22 22:58] VITALS: BP 130/74; PULSE 71; RESP 20; TEMP 36.9; O2SAT 98; BMI 26.5
--- NOTE | 2020-11-23 00:22 | ED.BACK ---
HPI - Back Pain/Injury General Chief Complaint: Back Pain/Injury Stated Complaint: Back pain Time Seen by Provider: 11/23/20 00:22 Source: patient Mode of arrival: ambulatory History of Present Illness HPI Narrative: 60-year-old female who reports onset of lower back pain that started yesterday morning when she woke up without any associated fever, chills, bowel or bladder dysfunction, patient states that pain radiates into the tops of both lower legs but is still able to ambulate. She denies any abdominal pain or urinary pain/burning/frequency. Related Data Home Medications Medication Instructions Recorded Confirmed sertraline 50 mg PO BEDTIME 04/24/20 09/26/20 hydrochlorothiazide 12.5 mg capsule 12.5 mg PO DAILY 05/09/20 09/26/20 hydroxyzine HCl 25 mg tablet 50 mg PO BEDTIME tab 06/04/20 09/26/20 ropinirole 1 mg tablet 1 mg PO BEDTIME 10/28/20 Previous Rx's Medication Instructions Recorded ondansetron HCl 4 mg tablet 4 mg PO Q8H PRN #60 tab 05/09/20 cholecalciferol (vitamin D3) 50 50 mcg PO DAILY #30 cap 05/15/20 mcg (2,000 unit) capsule sucralfate 1 gram tablet 1 g PO BID #60 tab 06/04/20 pantoprazole 40 mg tablet,delayed 40 mg PO BID #60 tab 09/09/20 release Allergies Allergy/AdvReac Type Severity Reaction Status Date / Time Penicillins Allergy Intermediate HIVES Verified 09/15/20 06:45 sulfamethoxazole Allergy Intermediate BLISTERS- Verified 09/15/20 06:45 [From BACTRIM] DELGADO - NERVE ENDINGS IN HAND/ERYTHEMA MULTIFORM trimethoprim [From BACTRIM] Allergy Intermediate BLISTERS- Verified 09/15/20 06:45 DELGADO - NERVE ENDINGS IN HAND/ERYTHEMA MULTIFORM latex [Latex] Allergy Mild RASH Verified 09/15/20 06:45 theophylline AdvReac Intermediate TACHYCARDIA Verified 09/15/20 06:45 TEGADERM Allergy Intermediate SKIN TEARS Uncoded 04/24/20 11:19 From COMPAZINE AdvReac Severe SEIZURES Uncoded 04/24/20 11:19 Review of Systems Review of Systems: Pertinent positives and negatives as stated in HPI and 10 point review of systems is otherwise negative. PENDING SALE TO [facility] Past Medical History Source: nursing notes reviewed Medical History Anastomotic ulcer Anxiety Asthma Borderline diabetes Depression DVT (deep venous thrombosis) GERD (gastroesophageal reflux disease) High cholesterol Surgical History History of hysterectomy Hx of esophagogastroduodenoscopy S/P gastric bypass Family History Family History Unknown No problems noted. Mother Diabetes mellitus CHF (congestive heart failure) Kidney failure Cervical cancer Brother No problems noted. Brother No problems noted. Social History Social History Alcohol intake: never Smoking Status: Current every day smoker Cigarettes Per Day: 30 Years Smoked: 30 Use of substances other than those prescribed or required for medical reasons: No Advance Directives: No Advance Directives Information Provided: No Patient : No Physical Exam Vital Signs: Vital Signs: Last Vital Signs Temp 98.5 F 11/22/20 22:58 Pulse 71 11/22/20 22:58 Resp 20 11/22/20 22:58 BP 130/74 11/22/20 22:58 Pulse Ox 98 11/22/20 22:58 Body Mass Index 26.5 VITAL SIGNS: Reviewed. GENERAL: Well developed, well nourished, in no acute distress. HEAD: Normocephalic/atraumatic EYES: PERRLA, EOMI NOSE: Nares patent bilateral OROPHARYNX: no oral lesions noted, posterior pharynx clear NECK: Supple, no adenopathy LUNGS: Normal breath sounds. No adventitious sounds or accessory muscle use. SpO2<98> CARDIOVASCULAR: Regular rate and rhythm without noted murmurs ABDOMEN: Soft, non-tender, non-distended with bowel sounds. BACK: Full range of motion, no midline vertebral tenderness, straight leg test negative, otherwise neurovascularly intact distal NEUROLOGIC: Alert and oriented x 4. Strength and sensation to light touch were grossly intact x 4. Course Course Course Narrative: This is a 60-year-old female with history and clinical presentation of acute on chronic back pain and will rule out possible UTI but low clinical suspicion and doubt any evidence for more serious conditions such as cauda equina or intra-abdominal pathology. Patient received combination analgesics and on review of urinalysis there is no evidence to suggest UTI. All results and findings were discussed with patient at bedside and on re-evaluation she has had some improvement of her symptoms. MDM - Back Pain/Injury Lab Data Labs: Lab Results 11/23/20 Range/Units 01:06 Urine Color DARK YELLOW Urine Appearance CLEAR Urine pH 6.0 (5.0-8.0) Ur Specific Dequincy 1.025 (1.005-1.025) Urine Protein NEG (NEG-TRACE) MG/DL Urine Glucose (UA) NEG (NEG) MG/DL Urine Ketones NEG (NEG) MG/DL Urine Blood NEG (NEG) Urine Nitrite NEG (NEG) Ur Leukocyte Esterase NEG (NEG) Discharge Plan Discharge Clinical Impression: Back pain Patient Disposition: Home, Self-Care Instructions: Back Pain (ED), Lower Back Exercises (ED) Additional Instructions: 1. Resume all home medications as prescribed. 2. Tylenol 1000 mg, orally, every 6 hours as needed for pain control. Do not exceed 4000 mg within 24 hours. 3. Ibuprofen 400 mg, orally with milk or food, every 6 hours as needed for pain control. 4. Follow-up with your primary care provider in the next 2-3 days for re-evaluation. Return to the emergency room for any acute worsening of your symptoms. Prescriptions: No Action cholecalciferol (vitamin D3) 50 mcg (2,000 unit) capsule 50 mcg PO DAILY Qty: 30 RF: 6 pantoprazole 40 mg tablet,delayed release (DR/EC) 40 mg PO BID Qty: 60 RF: 5 sertraline 50 mg Tablet 50 mg PO BEDTIME RF: 0 hydroxyzine HCl 25 mg tablet 50 mg PO BEDTIME RF: 0 sucralfate [Carafate] 1 gram tablet 1 g PO BID Qty: 60 RF: 6 hydrochlorothiazide 12.5 mg capsule 12.5 mg PO DAILY RF: 0 ondansetron HCl 4 mg tablet 4 mg PO Q8H PRN (Reason: nausea and vomiting) Qty: 60 RF: 4 Referrals: Joyce Tapia MD [Primary Care Provider] - 2 days
[2020-11-23] MEDS: Ketorolac Tromethamine 15 MG/ML VIAL IM (00:37)
[2020-11-23] MEDS: Lidocaine 4 % Patch ADH..PATCH 1 PATCH TRANSDERMA (00:37)
[2020-11-23 01:15] LABS: Glucose Urine UA NEG (NEG); Leukocyte Esterase Urine NEG (NEG); Nitrite Urine NEG (NEG); Specific Gravity - Urine 1.025 (1.005-1.025); Urine Blood NEG (NEG); Urine Ketones NEG (NEG); Urine Protein NEG (NEG-TRACE)
[2020-11-23 01:19] LABS: Appearance Urine CLEAR; Color Urine DARK YELLOW
== END 2020-11-23 01:54 | disposition home or self-care (01) ==
PROVIDERS: Emergency Provider Student in an Organized Health Care Education/Training Program; PCP Student in an Organized Health Care Education/Training Program
DX: M54.5 Low back pain (principal); F17.210 Nicotine dependence, cigarettes, uncomplicated; Z71.6 Tobacco abuse counseling; Z79.899 Other long term (current) drug therapy
CPT/HCPCS: 81003; 96372; 99284; J1885

== ENCOUNTER 2020-12-09 09:55 | Day surgery (SDC) | payer MEDICAID, SELFPAY ==
[2020-12-09 10:25] VITALS: BP 115/76; PULSE 71; RESP 16; TEMP 36.6; O2SAT 97; BMI 27.6
--- NOTE | 2020-12-09 11:16 | MHC.SHP ---
Pre-Procedural Eval Section B Chief Complaint: left middle and ring trigger finger Allergies: Allergies Allergy/AdvReac Type Severity Reaction Status Date / Time Penicillins Allergy Intermediate HIVES Verified 12/09/20 10:17 sulfamethoxazole Allergy Intermediate BLISTERS- Verified 12/09/20 10:17 [From BACTRIM] DELGADO - NERVE ENDINGS IN HAND/ERYTHEMA MULTIFORM trimethoprim [From BACTRIM] Allergy Intermediate BLISTERS- Verified 12/09/20 10:17 DELGADO - NERVE ENDINGS IN HAND/ERYTHEMA MULTIFORM latex [Latex] Allergy Mild RASH Verified 12/09/20 10:17 theophylline AdvReac Intermediate TACHYCARDIA Verified 12/09/20 10:17 TEGADERM Allergy Intermediate SKIN TEARS Uncoded 04/24/20 11:19 From COMPAZINE AdvReac Severe SEIZURES Uncoded 04/24/20 11:19 Plan I have reviewed the history and physical and performed a pertinent physical examination on my patient. No changes have occurred unless specified.
--- NOTE | 2020-12-09 11:16 | W.PM.OPN ---
Operative Note Operative Note Date of Service: 12/09/20 Narrative: Operative Note Preop diagnosis: 1. Left middle finger Trigger finger 2. Left ring finger trigger finger Postop diagnosis: Same Procedure: 1. Left middle finger A1 palmira release 2. Left ring finger A1 palmira release Surgeon: Jessy Bautista MD Anesthesia: local block using 1% lidocaine with epinephrine Findings: No locking or catching after A1 palmira release EBL: Less than 5 mL Tourniquet time: None Specimens: None Complications: None Disposition: Brought to recovery room in stable condition Plan: Follow-up for 7-10 days for wound check and suture removal Indications: The patient is 60 years old, with a left middle finger and left ring finger triggers that have been unresponsive to nonoperative management. The risks and benefits of operative treatment including but not limited to risk of damage to blood vessels, nerves, tendons, infection, persistent pain, persistent symptoms, recurrence or possible need for additional surgery were discussed with the patient and the patient wishes to proceed with surgery. Procedure: Once consent was obtained a local block was performed in the preop area using a combination of 1% lidocaine with epinephrine. The patient was then brought back to the operating suite and placed on the operative table in supine position. A tourniquet was applied to the proximal aspect of the left upper extremity and the limb was prepped and draped in a standard surgical fashion. Once assured that we had a good block, a 1.5 cm oblique incision was made centered over the A1 palmira of the left middle finger . The incision was made through the skin to the subcutaneous tissues using a #15 blade. Careful dissection was made down to the level of the A1 palmira using tenotomy scissors, with care being taken to protect the nearby neurovascular structures. A longitudinal incision was made in the A1 palmira 1st using a #15 blade, then using tenotomy scissors under direct visualization. The A1 palmira was noted to be thickened. Following our A1 palmira release, we no longer saw any locking or catching of the digit with flexion and extension. Once assured that we had a good block, a 1.5 cm oblique incision was made centered over the A1 palmira of the left ring finger . The incision was made through the skin to the subcutaneous tissues using a #15 blade. Careful dissection was made down to the level of the A1 palmira using tenotomy scissors, with care being taken to protect the nearby neurovascular structures. A longitudinal incision was made in the A1 palmira 1st using a #15 blade, then using tenotomy scissors under direct visualization. The A1 palmira was noted to be thickened. Following our A1 palmira release, we no longer saw any locking or catching of the digit with flexion and extension. Once satisfied with our A1 palmira release the wound was copiously irrigated with normal saline and hemostasis was obtained with a brief period of local pressure. The skin edges were reapproximated with some 5.0 nylon suture material and a sterile dressing was applied. The patient appears to have tolerated the procedure well and with no complications. All digits were well vascularized at the conclusion of the case.
[2020-12-09 12:14] VITALS: BP 104/5; PULSE 66; RESP 16; O2SAT 96
== END 2020-12-09 12:22 | disposition home or self-care (01) ==
PROVIDERS: PCP Student in an Organized Health Care Education/Training Program; Visit Provider Orthopaedic Surgery
PROC: (CPT 26055; principal; 2020-12-09 10:40)
DX: M65.332 Trigger finger, left middle finger (principal); M65.342 Trigger finger, left ring finger; E11.9 Type 2 diabetes mellitus without complications; J45.909 Unspecified asthma, uncomplicated; Z88.0 Allergy status to penicillin; Z88.2 Allergy status to sulfonamides
CPT/HCPCS: 26055 ×2

== ENCOUNTER → 2020-12-22 10:19 | Outpatient (BNVA) | payer MEDICAID, SELFPAY | PROVIDERS: Visit Provider Orthopaedic Surgery | DX: M65.342 Trigger finger, left ring finger (principal); M65.332 Trigger finger, left middle finger | CPT/HCPCS: 99212 ==

== ENCOUNTER 2020-12-25 13:00 | Outpatient (REF) | payer MEDICAID, SELFPAY ==
[2020-12-25 14:01] LABS: MANUAL DIFF FLAG NO
[2020-12-25 14:10] LABS: Basophils Percent Auto 0.3 % (0-2); Eosinophils Absolute Auto 0.2 X10*3/uL (0.0-0.4); Eosinophils Percent Auto 2.7 % (0-4); Hematocrit 39.9 % (37-47); Hemoglobin 13.2 g/dl (12.0-16.0); Imm Gran Abs Auto 0.02 X10*3/uL (0.00-0.03); Imm Gran Pct Auto 0.3 % (0.0-0.4); Lymphocytes Absolute Auto 2.4 X10*3/uL (1.2-4.9); Lymphocytes Percent Auto 30.9 % (20-40); Mean Corpuscular HGB Conc 33.1 g/dl (31.0-35.0); Mean Corpuscular Hemoglobin 28.8 pg (27.0-33.0); Mean Corpuscular Volume 87.1 fL (80-98); Mean Platelet Volume 10.2 fL (9.4-12.3); Monocytes Absolute Auto 0.5 X10*3/uL (0.1-1.2); Neutrophils Absolute Auto 4.6 X10*3/uL (2.0-8.3); Neutrophils Percent Auto 59.8 % (45-73); Platelet Count 233 X10*3/uL (160-400); Red Blood Count 4.58 X10*6/uL (4.20-5.50); Red Cell Distribution Width 12.7 % (11.0-16.0); White Blood Count 7.7 X10*3/uL (4.8-10.8)
[2020-12-25 14:36] LABS: Anion Gap 12 (12-20); Blood Urea Nitrogen 16 mg/dL (9-16); Calcium 9.4 mg/dL (8.4-10.2); Carbon Dioxide 30 mmol/L (22-29); Chloride 104 mmol/L (96-108); Estimated Glomerular Filt Rate > 60; Glucose Random 103 mg/dL (60-115); Iron 124 mcg/dL (30-160); Percent Iron Saturation 35 % (15-50); Potassium 4.3 mmol/L (3.3-5.1); Sodium 142 mmol/L (135-145); Total Iron Binding Capacity 355 mcg/dL (228-428); Unsaturated Iron Binding 231 ug/dL
[2020-12-25 14:49] LABS: Vitamin B12 804 pg/mL (200-900)
[2020-12-25 15:03] LABS: Ferritin 36 ng/mL (10-250); TSH reflex Free T4 1.84 uIU/mL (0.32-4.0); Vitamin D 25-OH Total 73.4 ng/mL (>30)
== END 2020-12-25 13:01 | disposition home or self-care (01) ==
LOC: HO.LAB 13:00
PROVIDERS: PCP Student in an Organized Health Care Education/Training Program; Referring Provider Student in an Organized Health Care Education/Training Program; Visit Provider Pediatrics
DX: M65.332 Trigger finger, left middle finger (principal); G25.81 Restless legs syndrome; E11.9 Type 2 diabetes mellitus without complications
CPT/HCPCS: 36415; 80048; 82306; 82550; 82607; 82728; 83540; 83735; 84443; 85025

== ENCOUNTER → 2020-12-31 11:43 | Outpatient (BNVA) | payer MEDICAID, SELFPAY | PROVIDERS: PCP Student in an Organized Health Care Education/Training Program; Visit Provider Internal Medicine Endocrinology, Diabetes & Metabolism | DX: E04.2 Nontoxic multinodular goiter (principal); E78.5 Hyperlipidemia, unspecified; E11.9 Type 2 diabetes mellitus without complications | CPT/HCPCS: 82947; 99212 ==

== ENCOUNTER 2021-01-02 22:56 | Emergency (ER) | payer MEDICAID, SELFPAY ==
[2021-01-02 22:59] VITALS: BP 111/78; PULSE 95; RESP 16; TEMP 36.1; O2SAT 99; BMI 27.6
--- NOTE | 2021-01-03 00:15 | PC.NURSE ---
PT TO ROOM #11 WITH C/O LEFT ARM PAIN D/T PREVIOUS SURGERY. PT ALSO C/O RIGHT EAR PAIN. PT ARRIVES ALERT, RESPIRATIONS EASY, N/L. SKIN W/D. PT AWAITING FOR MD'S EVAL.
--- NOTE | 2021-01-03 01:42 | ED.EAR ---
HPI - Ear Problem General Chief complaint: Ear Problems Stated complaint: multiple complaints Time Seen by Provider: 01/03/21 01:32 Source: patient Mode of arrival: ambulatory Limitations: no limitations History of Present Illness HPI Narrative: patient complaining of left ear pain for last 3 months seen her primary care doctor plan to see ENT been treated with prednisone and pain medication is still complaining of pain no ear discharge no hearing problem no tinnitus no fever no chills patient also complaining of pain in the left temporal area no vision problem Related Data Home Medications Medication Instructions Recorded Confirmed sertraline 50 mg PO BEDTIME 04/24/20 12/31/20 hydrochlorothiazide 12.5 mg capsule 12.5 mg PO DAILY 05/09/20 12/31/20 hydroxyzine HCl 25 mg tablet 50 mg PO BEDTIME tab 06/04/20 12/31/20 ropinirole 1 mg tablet 1 mg PO BEDTIME 10/28/20 12/31/20 Previous Rx's Medication Instructions Recorded ondansetron HCl 4 mg tablet 4 mg PO Q8H PRN #60 tab 05/09/20 sucralfate 1 gram tablet 1 g PO BID #60 tab 06/04/20 pantoprazole 40 mg tablet,delayed 40 mg PO BID #60 tab 09/09/20 release hydrocodone-acetaminophen 1 tab PO Q4-6H PRN #10 tab 12/09/20 cholecalciferol (vitamin D3) 50 50 mcg PO DAILY #30 cap 12/15/20 mcg (2,000 unit) capsule acarbose 25 mg tablet 25 mg PO TID 30 Days #90 tab 12/31/20 metformin 500 mg tablet,extended 500 mg PO DAILY 30 Days #30 tab 12/31/20 release 24 hr Allergies Allergy/AdvReac Type Severity Reaction Status Date / Time Penicillins Allergy Intermediate HIVES Verified 01/02/21 22:58 sulfamethoxazole Allergy Intermediate BLISTERS- Verified 01/02/21 22:58 [From BACTRIM] DELGADO - NERVE ENDINGS IN HAND/ERYTHEMA MULTIFORM trimethoprim [From BACTRIM] Allergy Intermediate BLISTERS- Verified 01/02/21 22:58 DELGADO - NERVE ENDINGS IN HAND/ERYTHEMA MULTIFORM latex [Latex] Allergy Mild RASH Verified 01/02/21 22:58 theophylline AdvReac Intermediate TACHYCARDIA Verified 01/02/21 22:58 TEGADERM Allergy Intermediate SKIN TEARS Uncoded 04/24/20 11:19 From COMPAZINE AdvReac Severe SEIZURES Uncoded 04/24/20 11:19 Review of Systems Review of Systems: Yes all other systems are reviewed and are negative [facility] Past Medical History Medical History (Updated 12/31/20 @ 12:13 by Robyn Tom MD) Anastomotic ulcer Anxiety Asthma Borderline diabetes Depression Diabetes type 2, controlled DVT (deep venous thrombosis) Dyslipidemia GERD (gastroesophageal reflux disease) High cholesterol History of restless legs syndrome Non-toxic multinodular goiter Surgical History (Updated 12/31/20 @ 11:59 by ADITYA Morton) History of hysterectomy Hx of esophagogastroduodenoscopy Hx of hand surgery S/P gastric bypass Family History Family History Unknown No problems noted. Mother Diabetes mellitus CHF (congestive heart failure) Kidney failure Cervical cancer Brother No problems noted. Brother No problems noted. Social History Social History Are you a primary attending ambulatory care to a significant other at home: No Do you presently have visiting nurse or other home services: No Alcohol intake: never Patient Tobacco Use Status: Current someday Tobacco user Cigarettes Per Day: 30 Years Smoked: 30 Advance Directives: No Advance Directives Information Provided: No Physical Exam Vital Signs: Vital Signs: Last Vital Signs Temp 97 F 01/02/21 22:59 Pulse 95 01/02/21 22:59 Resp 16 01/02/21 22:59 BP 111/78 01/02/21 22:59 Pulse Ox 99 01/02/21 22:59 Body Mass Index 27.6 Const: General: comfortable and no acute distress Orientation/consciousness: patient oriented x3 HENMT: Other: no tenderness over temporal artery bilateral no rash Head: Yes normal to inspection Ears: hearing grossly normal bilaterally, external ears normal, TM's normal bilaterally, TM normal on the right, TM normal on the left, EAC's normal, mastoids normal and no periauricular adenopathy General nose exam: Normal external nose present and Normal nares present Neck: Neck: Yes normal visual inspection and Yes no lymphadenopathy Resp: Effort & Inspection: normal respiratory effort Skin: General skin exam: no rashes or lesions noted Neuro: General: patient oriented x3 MDM - Ear MDM Narrative Medical decision making narrative: patient nonspecific pain in the left ear for 3 months already taken a course of prednisone clinically no signs of infection unable to explain the pain. Will check for sed rate to rule out temporal arteritis. If sed rate is normal patient will be discharged on pain medication advised to follow with ENT as scheduled. Discharge Plan Discharge Prescriptions: No Action pantoprazole 40 mg tablet,delayed release (DR/EC) 40 mg PO BID Qty: 60 RF: 5 cholecalciferol (vitamin D3) 50 mcg (2,000 unit) capsule 50 mcg PO DAILY Qty: 30 RF: 11 sertraline 50 mg Tablet 50 mg PO BEDTIME RF: 0 hydroxyzine HCl 25 mg tablet 50 mg PO BEDTIME RF: 0 hydrocodone-acetaminophen 5-325 mg tablet 1 tab PO Q4-6H PRN (Reason: pain) Qty: 10 RF: 0 sucralfate [Carafate] 1 gram tablet 1 g PO BID Qty: 60 RF: 6 metformin 500 mg tablet extended release 24 hr 500 mg PO DAILY 30 Days Qty: 30 RF: 5 acarbose 25 mg tablet 25 mg PO TID 30 Days Qty: 90 RF: 4 hydrochlorothiazide 12.5 mg capsule 12.5 mg PO DAILY RF: 0 ondansetron HCl 4 mg tablet 4 mg PO Q8H PRN (Reason: nausea and vomiting) Qty: 60 RF: 4 ropinirole 1 mg tablet 1 mg PO BEDTIME RF: 0
[2021-01-03] MEDS: oxyCODONE HCl Immed Release 5 MG TABLET 10 MG PO (01:52)
[2021-01-03 02:24] LABS: MANUAL DIFF FLAG NO
[2021-01-03 02:26] LABS: Basophils Percent Auto 0.3 % (0-2); Eosinophils Absolute Auto 0.3 X10*3/uL (0.0-0.4); Eosinophils Percent Auto 3.3 % (0-4); Hematocrit 39.1 % (37-47); Imm Gran Abs Auto 0.02 X10*3/uL (0.00-0.03); Imm Gran Pct Auto 0.2 % (0.0-0.4); Lymphocytes Absolute Auto 3.6 X10*3/uL (1.2-4.9); Lymphocytes Percent Auto 36.2 % (20-40); Mean Corpuscular HGB Conc 33.2 g/dl (31.0-35.0); Mean Corpuscular Volume 87.1 fL (80-98); Mean Platelet Volume 9.8 fL (9.4-12.3); Monocytes Absolute Auto 0.6 X10*3/uL (0.1-1.2); Monocytes Percent Auto 5.8 % (2-11); Neutrophils Absolute Auto 5.4 X10*3/uL (2.0-8.3); Neutrophils Percent Auto 54.2 % (45-73); Platelet Count 249 X10*3/uL (160-400); Red Blood Count 4.49 X10*6/uL (4.20-5.50); Red Cell Distribution Width 12.7 % (11.0-16.0); White Blood Count 9.9 X10*3/uL (4.8-10.8)
[2021-01-03 02:52] LABS: C Reactive Protein 0.07 mg/dL (< or = 0.50)
[2021-01-03 03:09] LABS: Erythrocyte Sedimentation Rate 7 MM/HR (0-20)
== END 2021-01-03 03:30 | disposition home or self-care (01) ==
PROVIDERS: Emergency Provider Internal Medicine; PCP Student in an Organized Health Care Education/Training Program
DX: H92.02 Otalgia, left ear (principal); E11.9 Type 2 diabetes mellitus without complications; J45.909 Unspecified asthma, uncomplicated; Z86.718 Personal history of other venous thrombosis and embolism; Z79.84 Long term (current) use of oral hypoglycemic drugs; Z79.899 Other long term (current) drug therapy
CPT/HCPCS: 36415; 85025; 85652; 86140; 99283

== ENCOUNTER → 2021-01-07 14:02 | Outpatient (BNVA) | payer MEDICAID, SELFPAY | PROVIDERS: PCP Student in an Organized Health Care Education/Training Program; Visit Provider Orthopaedic Surgery | DX: M65.332 Trigger finger, left middle finger (principal); M65.342 Trigger finger, left ring finger | CPT/HCPCS: 99212 ==

== ENCOUNTER 2021-01-13 10:22 | Day surgery (SDC) | payer MEDICAID, SELFPAY ==
--- NOTE | 2021-01-12 11:31 | P.CONAN_ITS ---
Documented by User: Daily Aburto 01/12/21 11:32 HPI - Anesthesia Eval Consult details Narrative: 60yo F for Left Ring finger and middle finger Extensor Tenotomy,ulnar slip SDS PMFSH Active Problems Active Problems: All Active Problems (Updated 01/04/21 @ 00:01 by Donnell Perez) Dyslipidemia (Acute) Non-toxic multinodular goiter (Acute) Diabetes type 2, controlled (Acute) Overweight (BMI 25.0-29.9) (Acute) Epidermal inclusion cyst (Acute) Trigger finger, left middle finger (Acute) Trigger finger, left ring finger (Acute) Anastomotic ulcer (Acute) S/P gastric bypass (Acute) Borderline diabetes (Acute) Past Medical History Medical History Anastomotic ulcer Anxiety Asthma Borderline diabetes Depression Diabetes type 2, controlled DVT (deep venous thrombosis) Dyslipidemia GERD (gastroesophageal reflux disease) High cholesterol History of restless legs syndrome Non-toxic multinodular goiter Family History Family History Unknown No problems noted. Mother Diabetes mellitus CHF (congestive heart failure) Kidney failure Cervical cancer Brother No problems noted. Brother No problems noted. Surgical History Surgical History History of hysterectomy Hx of esophagogastroduodenoscopy Hx of hand surgery S/P gastric bypass Social History Social History Are you a primary wild animal caretaker to a significant other at home: No Do you presently have visiting nurse or other home services: No Alcohol intake: never Patient Tobacco Use Status: Current someday Tobacco user Cigarettes Per Day: 30 Years Smoked: 30 Use of substances other than those prescribed or required for medical reasons: No Have you been hit, kicked, punched, or otherwise hurt by someone within the past year? If so, by whom?: No Are you DNR?: No Advance Directives: No Advance Directives Information Provided: Yes Meds Allergies Allergy/AdvReac Type Severity Reaction Status Date / Time Penicillins Allergy Intermediate HIVES Verified 01/13/21 11:04 sulfamethoxazole Allergy Intermediate BLISTERS- Verified 01/13/21 11:04 [From BACTRIM] DELGADO - NERVE ENDINGS IN HAND/ERYTHEMA MULTIFORM trimethoprim [From BACTRIM] Allergy Intermediate BLISTERS- Verified 01/13/21 11:04 DELGADO - NERVE ENDINGS IN HAND/ERYTHEMA MULTIFORM latex [Latex] Allergy Mild RASH Verified 01/13/21 11:04 theophylline AdvReac Intermediate TACHYCARDIA Verified 01/13/21 11:04 TEGADERM Allergy Intermediate SKIN TEARS Uncoded 01/13/21 11:04 From COMPAZINE AdvReac Severe SEIZURES Uncoded 01/13/21 11:04 Home Medications Medication Instructions Recorded Confirmed Last Taken Type sertraline 50 mg PO BEDTIME 04/24/20 12/31/20 Unknown History hydrochlorothiazide 12.5 mg capsule 12.5 mg PO DAILY 05/09/20 12/31/20 Unknown History hydroxyzine HCl 25 mg tablet 50 mg PO BEDTIME tab 06/04/20 12/31/20 Unknown History ropinirole 1 mg tablet 1 mg PO BEDTIME 10/28/20 12/31/20 Unknown History Exam Exam Date and Time: January 12, 2021 1131 Pertinent Lab Results Pertinent Lab Results: Laboratory Tests 12/25/20 01/03/21 13:10 02:16 WBC 9.9 Hgb 13.0 Hct 39.1 Plt Count 249 Sodium 142 Potassium 4.3 Chloride 104 Carbon Dioxide 30 H BUN 16 Creatinine 0.75 Narrative Narrative: EKG 10/2020 Vent. Rate : 074 BPM Atrial Rate : 074 BPM P-R Int : 158 ms QRS Dur : 074 ms QT Int : 366 ms P-R-T Axes : 011 033 032 degrees QTc Int : 406 ms Normal sinus rhythm Normal ECG When compared with ECG of 06-MAR-2020 20:20, No significant change was found Assessment and Plan Assessment Anesthesia Assessment: Chart Reviewed Documented by User: Joseph Venegas MD 01/13/21 12:38 PMFSH Past Medical History Medical History Anastomotic ulcer Anxiety Asthma Borderline diabetes Depression Diabetes type 2, controlled DVT (deep venous thrombosis) Dyslipidemia GERD (gastroesophageal reflux disease) High cholesterol History of restless legs syndrome Non-toxic multinodular goiter Family History Family History Unknown No problems noted. Mother Diabetes mellitus CHF (congestive heart failure) Kidney failure Cervical cancer Brother No problems noted. Brother No problems noted. Surgical History Surgical History History of hysterectomy Hx of esophagogastroduodenoscopy Hx of hand surgery S/P gastric bypass Social History Social History Are you a primary wild animal caretaker to a significant other at home: No Do you presently have visiting nurse or other home services: No Alcohol intake: never Patient Tobacco Use Status: Current someday Tobacco user Cigarettes Per Day: 30 Years Smoked: 30 Use of substances other than those prescribed or required for medical reasons: No Have you been hit, kicked, punched, or otherwise hurt by someone within the past year? If so, by whom?: No Are you DNR?: No Advance Directives: No Advance Directives Information Provided: Yes Meds Allergies Allergy/AdvReac Type Severity Reaction Status Date / Time Penicillins Allergy Intermediate HIVES Verified 01/13/21 11:04 sulfamethoxazole Allergy Intermediate BLISTERS- Verified 01/13/21 11:04 [From BACTRIM] DELGADO - NERVE ENDINGS IN HAND/ERYTHEMA MULTIFORM trimethoprim [From BACTRIM] Allergy Intermediate BLISTERS- Verified 01/13/21 11:04 DELGADO - NERVE ENDINGS IN HAND/ERYTHEMA MULTIFORM latex [Latex] Allergy Mild RASH Verified 01/13/21 11:04 theophylline AdvReac Intermediate TACHYCARDIA Verified 01/13/21 11:04 TEGADERM Allergy Intermediate SKIN TEARS Uncoded 01/13/21 11:04 From COMPAZINE AdvReac Severe SEIZURES Uncoded 01/13/21 11:04 Home Medications Medication Instructions Recorded Confirmed Last Taken Type sertraline 50 mg PO BEDTIME 04/24/20 12/31/20 Unknown History hydrochlorothiazide 12.5 mg capsule 12.5 mg PO DAILY 05/09/20 12/31/20 Unknown History hydroxyzine HCl 25 mg tablet 50 mg PO BEDTIME tab 06/04/20 12/31/20 Unknown History ropinirole 1 mg tablet 1 mg PO BEDTIME 10/28/20 12/31/20 Unknown History Exam Airway Mallampati Class: I TM Dist: >3cm Neck ROM: Full Loose/Missing/Broken Teeth: No Assessment and Plan Assessment Anesthesia Assessment: Anesthesia Plan Discussed and Chart Reviewed Final Anesthetic Review NPO: Yes ASA Class: II Final Preanesthetic Review: No Changes in Pt Med Stat, Meds/Allgs Chart Reviewed, Consent Obtained/Reviewed and Anes Risks/Benef Reviewed Patient Risk: Low Procedure Risk: Low Anesthetic Plan Anesthetic Plan: GA Disposition: Standard PACU
[2021-01-13] VITALS (11 sets, daily range): BP systolic 115–149; BP diastolic 65–98; PULSE 62–79; RESP 12–18; TEMP 36.1–36.3; O2SAT 94–100; BMI 27.3
--- NOTE | 2021-01-13 09:58 | P.OP_ITS ---
Operative Note Operative Note Date of Service: 01/13/21 Narrative: Operative Note Narrative: Preop diagnosis: 1. Left ring finger trigger finger status post A1 palmira release 2. Left middle finger trigger finger status post A1 palmira release Postop diagnosis: Same Procedure: 1. Left ring finger tenotomy of ulnar slip of FDS tendon 2. Left ring finger FDS and FDP tenosynovectomy 3. Left middle finger tenotomy of ulnar slip of FDS tendon 4. Left middle finger FDS and FDP tenosynovectomy Surgeon: Jessy Bautista MD Anesthesia: Mac plus regional block Findings: Hypertrophic tenosynovium about the flexor tendons in both the middle and ring fingers. Specimens from both were sent for culture. No locking or catching with passive flexion and extension of the ring and middle fingers following the above procedures. Implants: none Tourniquet time: 49 minutes EBL: 5.0 ml Specimen: Specimens from the hypertrophic tenosynovium about the flexor tendons in both the middle and ring fingers were sent for Gram stain, aerobic and anaerobic AFB and fungal cultures. Drains: None Complications: None Disposition: Brought to the recovery room in stable condition Plan: Follow-up in 10-14 days for wound check, suture removal and to check pathology and cultures Early OT hand therapy for range of motion and also to decrease hypersensitivity after wound healing. Indications: The patient is a [age] year old woman with persistent p ain, crepitus, locking and catching of the left ring and middle fingers following A1 palmira releases . The risks and benefits of operative treatment, including but not limited to risk of damage to blood vessels, nerves, tendons, infection, recurrence, persistent pain or numbness, incomplete resolution of preoperative symptoms, or need for further surgery were discussed with the patient and they wished to proceed with surgery. Procedure: Once consent was obtained patient was brought back to the operating suite and placed in the operating table in a supine position. . Perioperative antibiotics and anesthesia was administered by the anesthesia team. A tourniquet was applied to the proximal aspect of the left upper extremity and the limb was prepped and draped in a standard surgical fashion. The limb was elevated exsanguinated with Esmarch bandage and the tourniquet inflated to 250 mm of mercury for a total tourniquet time of 49 minutes. An interrupted Rocio incision was made over the volar aspect of the left ring finger between the A4 palmira and the A1 palmira. The incision was made through the skin to the subcutaneous tissues using a 15. Blade. Careful dissection was made down to the level of the A1 palmira. The newly forming tendon sheath in this area was opened longitudinally using a 15. Blade and tenotomy scissors under direct visualization. She had some grayish appearing hypertrophic tenosynovium about the FDS and FDP tendons. A tenosynovectomy was performed excising this material using tenotomy scissors, and sending it for culture. More distally I also dissected down to the level of the flexor tendon sheath at the A3 and distal aspect of the A2 pulleys. The flexor tendon sheath was opened at the A3 palmira longitudinally using tenotomy scissors. The distal aspect of the ulnar slip of the FDS tendon was appreciated and was tenotomized at its insertion using a 15. Blade and tenotomy scissors. I then used tenotomy scissors to separate the attachments between the ulnar and radial slips of the FDS tendon. The ulnar slip was then withdrawn back into the A1 palmira area, and an angled cut was made tenotomizing the ulnar slip from the FDS tendon at its proximal aspect. The slip of tendon was then placed on the back table to be sent back for pathology. The digit was then brought through passive flexion and extension and no locking or catching was appreciated. An interrupted Rocio incision was made over the volar aspect of the left Middle finger between the A4 palmira and the A1 palmira. The incision was made through the skin to the subcutaneous tissues using a 15. Blade. Careful dissection was made down to the level of the A1 palmira. The newly forming tendon sheath in this area was opened longitudinally using a 15. Blade and tenotomy scissors under direct visualization. She had some grayish appearing hypertrophic tenosynovium about the FDS and FDP tendons. A tenosynovectomy was performed excising this material using tenotomy scissors, and sending it for culture. More distally I also dissected down to the level of the flexor tendon sheath at the A3 and distal aspect of the A2 pulleys. The flexor tendon sheath was opened at the A3 palmira longitudinally using tenotomy scissors. The distal aspect of the ulnar slip of the FDS tendon was appreciated and was tenotomized at its insertion using a 15. Blade and tenotomy scissors. I then used tenotomy scissors to separate the attachments between the ulnar and radial slips of the FDS tendon. The ulnar slip was then withdrawn back into the A1 palmira area, and an angled cut was made tenotomizing the ulnar slip from the FDS tendon at its proximal aspect. The slip of tendon was then placed on the back table to be sent back for pathology. The digit was then brought through passive flexion and extension and no locking or catching was appreciated. At this point the tourniquet was deflated and hemostasis obtained with a brief period of local pressure . The wounds were copiously irrigated with normal saline. The skin edges were reapproximated with 5-0 nylon suture. The wounds were infiltrated with some 0.25% plain Marcaine for postop pain control and a sterile dressing was applied. The patient appears to have tolerated the procedure well and with no complications. All digits were well vascularized conclusion of the case.
[2021-01-13 10:45] LABS: Glucose, Whole Blood 97 mg/dL (60-115)
[2021-01-13] MEDS: Lactated Ringers 1,000 ML 100 ML IVCONT (12:28)
[2021-01-13] MEDS: oxyCODONE HCl Immed Release 5 MG TABLET PO (14:23)
[2021-01-13] MEDS: Acetaminophen 325 MG TABLET 650 MG PO (14:23)
[2021-01-13] MEDS: Ketorolac Tromethamine 15 MG/ML VIAL IVPUSH (14:24)
[2021-01-13] MEDS: HYDROmorphone HCl 0.5 MG/0.5 ML SYRINGE IVPUSH ×2 (14:45→14:57)
== END 2021-01-13 16:25 | disposition home or self-care (01) ==
PROVIDERS: PCP Student in an Organized Health Care Education/Training Program; Visit Provider Orthopaedic Surgery
PROC: (CPT 26145; principal; 2021-01-13 12:50)
DX: M65.332 Trigger finger, left middle finger (principal); M65.342 Trigger finger, left ring finger; E11.9 Type 2 diabetes mellitus without complications; J45.909 Unspecified asthma, uncomplicated; F17.210 Nicotine dependence, cigarettes, uncomplicated; Z79.84 Long term (current) use of oral hypoglycemic drugs; Z79.899 Other long term (current) drug therapy; Z88.0 Allergy status to penicillin; Z88.2 Allergy status to sulfonamides; Z91.040 Latex allergy status; Z88.8 Allergy status to other drugs, medicaments and biological substances
CPT/HCPCS: 26145 ×2; 26055 ×2; 82947; 87071; 87073; 87116; 87205; 88304; J0690; J1100; J1170; J1885; J2250; J2405; J3010

== ENCOUNTER 2021-01-22 11:23 | Outpatient (REF) | payer MEDICAID, SELFPAY ==
--- NOTE | ~2021-01-22 | US_ITS ---
EXAMINATION: US THYROID CLINICAL INFORMATION: Nontoxic multinodular goiter. COMPARISON: Thyroid ultrasound 03/29/2018 and 04/01/2016. TECHNIQUE: Linear transducer grayscale and color Doppler examination with attention to the region of the thyroid. FINDINGS: SIZE: Measurements of the thyroid lobes and nodules are given in sagittal, anteroposterior and transverse dimensions respectively. Right Thyroid Lobe: 4.7 x 1.3 x 1.2 cm, volume 3.8 mL. Previously 4.3 x 1.3 x 1.3 cm, volume 3.0 mL. Parenchyma: The gland echotexture is homogeneous. Thyroid vascularity is increased. Left Thyroid Lobe: 4.6 x 1.0 x 1.5 cm, volume 3.6 mL. Previously 4.4 x 1.1 x 1.4 cm, volume 2.6 mL. Parenchyma: The gland echotexture is homogeneous. Thyroid vascularity is increased. Isthmus: 0.3 cm in maximum AP dimension. Previously 0.2 cm. Estimated total number of nodules greater than or equal to 1 cm: 0. Airport Clerk nodules are described as follows: 1. Location: Left upper pole. Size: 0.8 x 0.6 x 0.6 cm, volume 0.14 mL. Previously: 0.6 x 0.6 x 0.7 cm, volume 0.12 mL. Nodule characteristics: Composition: Solid (2). Echogenicity: Isoechoic (1). Shape: Not taller than wide (0). Margins: Smooth (0). Echogenic Foci: None (0). ACR TI-RADS total points: 3 Previous: N/A ACR TI-RADS category: 3 Previous: N/A Significant change in size (>/= 20% in 2 dimensions and minimal increase of 2 mm or 50% or greater increase in volume): Change in features: Change in ACR TI-RADS risk category: N/A 2. Location: Left mid pole/medial. Size: 0.8 x 0.5 x 0.6 cm, volume 0.12 mL. Previously: 0.6 x 0.5 x 0.7 cm, volume 0.12 mL. Nodule characteristics: Composition: Solid (2). Echogenicity: Hypoechoic (2). Shape: Not taller than wide (0). Margins: Smooth (0). Echogenic Foci: None (0). ACR TI-RADS total points: 4 Previous: N/A ACR TI-RADS category: 4 Previous: N/A Significant change in size (>/= 20% in 2 dimensions and minimal increase of 2 mm or 50% or greater increase in volume): Change in features: Change in ACR TI-RADS risk category: N/A NODES: No lymphadenopathy is seen in the tissue surrounding the thyroid gland. US/US thyroid IMPRESSION: Small slightly hypervascular thyroid gland. Stable left thyroid nodules. ACR TI-RADS RECOMMENDATION REFERENCE: Ultrasound-guided fine-needle aspiration, followup ultrasound, no further follow up. * TR1 (0 point) and TR 2 (2 points): No FNA or follow up * TR3 (3 points): FNA if more than or equal to 2.5 cm in maximum dimension, followup ultrasound in 1, 3 and 5 years if 1.5 to 2.4 cm in maximum dimension. * TR4 (4-6 points): FNA if more than or equal to 1.5 cm in maximum dimension, followup ultrasound in 1, 2, 3 and 5 years if 1 to 1.4 cm in maximum dimension. * TR5 (more than or equal to 7 points): FNA if more than or equal to 1 cm in maximum dimension, followup ultrasound every year for 5 years if 0.5 to 0.9 cm in maximum dimension. * TR3, TR4 or TR5 nodules that are below the size threshold for follow up receive no follow up.
== END 2021-01-22 11:24 | disposition home or self-care (01) ==
LOC: HO.HMGCX 11:23
PROVIDERS: PCP Student in an Organized Health Care Education/Training Program; Visit Provider Internal Medicine Endocrinology, Diabetes & Metabolism
DX: E04.2 Nontoxic multinodular goiter (principal); E78.5 Hyperlipidemia, unspecified; E11.9 Type 2 diabetes mellitus without complications
CPT/HCPCS: 76536

== ENCOUNTER → 2021-01-26 10:17 | Outpatient (BNVA) | payer MEDICAID, SELFPAY | PROVIDERS: Visit Provider Physician Assistant | DX: M65.332 Trigger finger, left middle finger (principal); M65.342 Trigger finger, left ring finger | CPT/HCPCS: 99212 ==

== ENCOUNTER → 2021-02-06 14:47 | Outpatient (BNVA) | payer MEDICAID, SELFPAY | PROVIDERS: Visit Provider Physician Assistant | DX: R11.10 Vomiting, unspecified (principal); E11.9 Type 2 diabetes mellitus without complications; Z98.84 Bariatric surgery status; Z79.84 Long term (current) use of oral hypoglycemic drugs | CPT/HCPCS: 99212 ==

== ENCOUNTER 2021-03-01 18:12 | Emergency (ER) | payer MEDICAID, SELFPAY ==
[2021-03-01 18:14] VITALS: BP 144/75; PULSE 101; RESP 19; TEMP 36.7; O2SAT 99; BMI 26.5
--- NOTE | 2021-03-01 20:05 | ED.BACK ---
HPI - Back Pain/Injury General Chief Complaint: Back Pain/Injury Stated Complaint: Back pain Time Seen by Provider: 03/01/21 19:54 Source: patient Mode of arrival: ambulatory Limitations: no limitations History of Present Illness HPI Narrative: Patient history of chronic low back pain on Percocet off and on unable to get it from her PCP as she was on vacation had multiple back surgeries in the past no history of recent trauma comes to the ER for increased pain in lower back with radiation of pain to the both buttocks no weakness in the legs no urinary or bowel incontinence. Pain is similar to that in the past Related Data Home Medications Medication Instructions Recorded Confirmed sertraline 50 mg tablet 50 mg PO BEDTIME 04/24/20 12/31/20 hydrochlorothiazide 12.5 mg capsule 12.5 mg PO DAILY 05/09/20 12/31/20 hydroxyzine HCl 25 mg tablet 50 mg PO BEDTIME tab 06/04/20 12/31/20 ropinirole 1 mg tablet 1 mg PO BEDTIME 10/28/20 12/31/20 Previous Rx's Medication Instructions Recorded ondansetron HCl 4 mg tablet 4 mg PO Q8H PRN #60 tab 05/09/20 sucralfate 1 gram tablet (Carafate) 1 g PO BID #60 tab 06/04/20 hydrocodone 5 mg-acetaminophen 325 1 tab PO Q4-6H PRN #10 tab 12/09/20 mg tablet cholecalciferol (vitamin D3) 50 50 mcg PO DAILY #30 cap 12/15/20 mcg (2,000 unit) capsule acarbose 25 mg tablet 25 mg PO TID 30 Days #90 tab 12/31/20 metformin 500 mg tablet,extended 500 mg PO DAILY 30 Days #30 tab 12/31/20 release 24 hr oxycodone-acetaminophen 5 mg-325 1 tab PO Q8H PRN #9 tab 01/19/21 mg tablet pantoprazole 40 mg tablet,delayed 40 mg PO DAILY #60 tab 02/27/21 release cyclobenzaprine 10 mg tablet 10 mg PO Q8H #20 tab 03/01/21 tramadol 50 mg tablet 50 mg PO Q6H PRN #20 tab 03/01/21 Allergies Allergy/AdvReac Type Severity Reaction Status Date / Time Penicillins Allergy Intermediate HIVES Verified 03/01/21 18:13 sulfamethoxazole Allergy Intermediate BLISTERS- Verified 03/01/21 18:13 [From BACTRIM] DELGADO - NERVE ENDINGS IN HAND/ERYTHEMA MULTIFORM trimethoprim [From BACTRIM] Allergy Intermediate BLISTERS- Verified 03/01/21 18:13 DELGADO - NERVE ENDINGS IN HAND/ERYTHEMA MULTIFORM latex [Latex] Allergy Mild RASH Verified 03/01/21 18:13 theophylline AdvReac Intermediate TACHYCARDIA Verified 03/01/21 18:13 TEGADERM Allergy Intermediate SKIN TEARS Uncoded 02/06/21 14:57 From COMPAZINE AdvReac Severe SEIZURES Uncoded 02/06/21 14:57 Review of Systems Review of Systems: Yes all other systems are reviewed and are negative PMFSH Past Medical History Medical History Anastomotic ulcer Anxiety Asthma Borderline diabetes Depression Diabetes type 2, controlled DVT (deep venous thrombosis) Dyslipidemia GERD (gastroesophageal reflux disease) High cholesterol History of restless legs syndrome Non-toxic multinodular goiter Surgical History History of hysterectomy Hx of esophagogastroduodenoscopy Hx of hand surgery S/P gastric bypass Family History Family History Unknown No problems noted. Mother Diabetes mellitus CHF (congestive heart failure) Kidney failure Cervical cancer Brother No problems noted. Brother No problems noted. Social History Social History Are you a primary critical care physician to a significant other at home: No Do you presently have visiting nurse or other home services: No Alcohol intake: never Patient Tobacco Use Status: Current someday Tobacco user Cigarettes Per Day: 30 Years Smoked: 30 Advance Directives: No Advance Directives Information Provided: No Patient : No Physical Exam Vital Signs: Vital Signs: Last Vital Signs Temp 98.1 F 03/01/21 18:14 Pulse 101 H 03/01/21 18:14 Resp 19 03/01/21 18:14 BP 144/75 H 03/01/21 18:14 Pulse Ox 99 03/01/21 18:14 Body Mass Index 26.5 Appearance: Alert. Oriented X3. No acute distress. ENT: Oral Mucosa moist Neck: Normal inspection. Neck supple. CVS: Normal heart rate and rhythm. Pulses normal. Respiratory: No respiratory distress. Equal air entry bilateral, Abdomen: Soft and nontender. Skin: Skin warm and dry. Normal skin color. Normal skin turgor. Extremities: No lower extremity edema. No calf tenderness Back: Diffuse tenderness lumbosacral area SLR negative bilateral patient able to stand on toes and heel reflexes are normal Neuro: Oriented X 3. No motor deficit. No sensory deficit. MDM - Back Pain/Injury MDM Narrative Medical decision making narrative: Patient with chronic low back pain on chronic pain management with history of previous back surgeries no new deficits or new findings will discharge patient home on tramadol and Flexeril Discharge Plan Discharge Clinical Impression: Chronic back pain Qualifiers: Back pain location: low back pain Back pain laterality: bilateral Sciatica presence: with sciatica Sciatica laterality: bilateral sciatica Qualified Code(s): M54.42 - Lumbago with sciatica, left side Patient Disposition: Home, Self-Care Instructions: Back Pain (ED) Additional Instructions: Take pain and muscle relaxants medications as prescribed Prescriptions: New cyclobenzaprine 10 mg tablet 10 mg PO Q8H Qty: 20 RF: 0 tramadol 50 mg tablet 50 mg PO Q6H PRN (Reason: pain) Qty: 20 RF: 0 No Action cholecalciferol (vitamin D3) 50 mcg (2,000 unit) capsule 50 mcg PO DAILY Qty: 30 RF: 11 oxycodone-acetaminophen 5-325 mg tablet 1 tab PO Q8H PRN (Reason: pain) Qty: 9 RF: 0 pantoprazole 40 mg tablet,delayed release (DR/EC) 40 mg PO DAILY Qty: 60 RF: 0 sertraline 50 mg Tablet 50 mg PO BEDTIME RF: 0 hydroxyzine HCl 25 mg tablet 50 mg PO BEDTIME RF: 0 hydrocodone-acetaminophen 5-325 mg tablet 1 tab PO Q4-6H PRN (Reason: pain) Qty: 10 RF: 0 sucralfate [Carafate] 1 gram tablet 1 g PO BID Qty: 60 RF: 6 metformin 500 mg tablet extended release 24 hr 500 mg PO DAILY 30 Days Qty: 30 RF: 5 acarbose 25 mg tablet 25 mg PO TID 30 Days Qty: 90 RF: 4 hydrochlorothiazide 12.5 mg capsule 12.5 mg PO DAILY RF: 0 ondansetron HCl 4 mg tablet 4 mg PO Q8H PRN (Reason: nausea and vomiting) Qty: 60 RF: 4 ropinirole 1 mg tablet 1 mg PO BEDTIME RF: 0 Interventions: ED Discharge Assessment Last Done: 03/01/21 20:43
[2021-03-01] MEDS: oxyCODONE HCl Immed Release 5 MG TABLET 10 MG PO (20:39)
== END 2021-03-01 20:47 | disposition home or self-care (01) ==
PROVIDERS: Emergency Provider Internal Medicine; PCP Student in an Organized Health Care Education/Training Program
DX: M54.42 Lumbago with sciatica, left side (principal); F17.210 Nicotine dependence, cigarettes, uncomplicated; Z71.6 Tobacco abuse counseling; Z79.899 Other long term (current) drug therapy
CPT/HCPCS: 99283

== ENCOUNTER 2021-03-04 09:30 | Outpatient (RCR) | payer MEDICAID, SELFPAY ==
--- NOTE | 2021-02-17 10:03 | MHC.OT.OP ---
[address] [phone] F: [phone] Occupational Therapy Progress Note Diagnosis: Left trigger finger release revision MF and RF A1 palmira release, MF and RF FDS and FDP tenosyovectomy RF and MF Date of Surgery: 01/13/21 Date of Evaluation: 02/09/21 Treatments to Date: 3 Cancellations to Date: No Shows to Date: Subjective: It just hurts so much I can't close it Pain Score: 6 Pain Location: left hand D3-5 Objective Measures: Left hand digit ROM after heat and stretch AROM (PROM) D2 PIP 74 (99) DIP 70 D3 PIP 70 (86) DIP 44 D4 PIP 70 (90) DIP 34 D5 PIP 80 (90) DIP 60 Status: Progressing Assessment: Initiallity guarded, significant range improvements w/ heat, massage and stretch, more comfortable over time and able to distract patient w/ conversation. Reporting good follow through w/ HEP, but has decreased carry over w/ gains from previous visit. Needs to increase self massage for scar and edema and increase HEP. Good carry over w/ orthosis wear at nighttime. Pt is on her phone throughout therapy session, playing games or texting, therapist asks once to return attention to task. Therapist asked patient to set the goal of active tip-palm digit flex prior to next visit. 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
--- NOTE | 2021-03-18 11:05 | MHC.OT.DC ---
[address] [phone] F: [phone] Occupational Therapy Discharge Note Provider: Dr Bautista Diagnosis: Left trigger finger release revision MF and RF A1 palmira release, MF and RF FDS and FDP tenosyovectomy RF and MF Date of Surgery: 01/13/21 Date of Evaluation: 02/09/21 Date of Discharge: 03/18/21 Treatments to Date: 7 Cancellations to Date: 1 No Shows to Date: 3 Discharge Status: Visit Non-compliance Discharge Summary: Asad is now 8 weeks post-op, has missed several appointments. On last visit, she continued to have edema and high pain with decreased carry over w/ gains made in treatment. Pt states she is doing stretching exercises multiple times a day and massage, but is still very limited. Electronically Signed By: Zuleyma Osullivan OTR/L Please Sign and return to therapist, thank you for your referral.
== END 2021-03-18 11:06 | disposition home or self-care (01) ==
LOC: HO.OT 09:30
PROVIDERS: PCP Student in an Organized Health Care Education/Training Program; Visit Provider Orthopaedic Surgery
DX: M65.332 Trigger finger, left middle finger (principal); M65.342 Trigger finger, left ring finger
CPT/HCPCS: 29130; 97110; 97140; 97165; 97760

== ENCOUNTER 2021-03-10 21:29 | Emergency (ER) | payer MEDICAID, SELFPAY ==
[2021-03-10 21:35] VITALS: BP 134/78; PULSE 84; RESP 18; TEMP 35.5; O2SAT 100; BMI 27.4
--- NOTE | 2021-03-10 22:09 | ED_ITS ---
HPI - Dental/Oral General Chief complaint: Dental/Oral Stated complaint: Dental Pain Time Seen by Provider: 03/10/21 21:54 Source: patient Mode of arrival: ambulatory Limitations: no limitations History of Present Illness HPI Narrative: Patient is status post upper gum all teeth extraction 4 days ago pain in the gums already seen dentist took the oxycodone but still having the pain no fever no swelling or persistent Related Data Home Medications Medication Instructions Recorded Confirmed sertraline 50 mg tablet 50 mg PO BEDTIME 04/24/20 12/31/20 hydrochlorothiazide 12.5 mg capsule 12.5 mg PO DAILY 05/09/20 12/31/20 hydroxyzine HCl 25 mg tablet 50 mg PO BEDTIME tab 06/04/20 12/31/20 ropinirole 1 mg tablet 1 mg PO BEDTIME 10/28/20 12/31/20 Previous Rx's Medication Instructions Recorded ondansetron HCl 4 mg tablet 4 mg PO Q8H PRN #60 tab 05/09/20 sucralfate 1 gram tablet (Carafate) 1 g PO BID #60 tab 06/04/20 hydrocodone 5 mg-acetaminophen 325 1 tab PO Q4-6H PRN #10 tab 12/09/20 mg tablet cholecalciferol (vitamin D3) 50 50 mcg PO DAILY #30 cap 12/15/20 mcg (2,000 unit) capsule acarbose 25 mg tablet 25 mg PO TID 30 Days #90 tab 12/31/20 metformin 500 mg tablet,extended 500 mg PO DAILY 30 Days #30 tab 12/31/20 release 24 hr oxycodone-acetaminophen 5 mg-325 1 tab PO Q8H PRN #9 tab 01/19/21 mg tablet pantoprazole 40 mg tablet,delayed 40 mg PO DAILY #60 tab 02/27/21 release cyclobenzaprine 10 mg tablet 10 mg PO Q8H #20 tab 03/01/21 tramadol 50 mg tablet 50 mg PO Q6H PRN #20 tab 03/01/21 oxycodone 5 mg tablet 5 mg PO Q6H PRN #20 tab 03/10/21 Allergies Allergy/AdvReac Type Severity Reaction Status Date / Time Penicillins Allergy Intermediate HIVES Verified 03/01/21 18:13 sulfamethoxazole Allergy Intermediate BLISTERS- Verified 03/01/21 18:13 [From BACTRIM] DELGADO - NERVE ENDINGS IN HAND/ERYTHEMA MULTIFORM trimethoprim [From BACTRIM] Allergy Intermediate BLISTERS- Verified 03/01/21 18:13 DELGADO - NERVE ENDINGS IN HAND/ERYTHEMA MULTIFORM latex [Latex] Allergy Mild RASH Verified 03/01/21 18:13 theophylline AdvReac Intermediate TACHYCARDIA Verified 03/01/21 18:13 TEGADERM Allergy Intermediate SKIN TEARS Uncoded 02/06/21 14:57 From COMPAZINE AdvReac Severe SEIZURES Uncoded 02/06/21 14:57 Review of Systems Review of Systems: Yes all other systems are reviewed and are negative [facility] Past Medical History Medical History Anastomotic ulcer Anxiety Asthma Borderline diabetes Depression Diabetes type 2, controlled DVT (deep venous thrombosis) Dyslipidemia GERD (gastroesophageal reflux disease) High cholesterol History of restless legs syndrome Non-toxic multinodular goiter Surgical History History of hysterectomy Hx of esophagogastroduodenoscopy Hx of hand surgery S/P gastric bypass Family History Family History Unknown No problems noted. Mother Diabetes mellitus CHF (congestive heart failure) Kidney failure Cervical cancer Brother No problems noted. Brother No problems noted. Social History Social History Are you a primary manager medicare marketing to a significant other at home: No Do you presently have visiting nurse or other home services: No Alcohol intake: never Patient Tobacco Use Status: Current someday Tobacco user Cigarettes Per Day: 30 Years Smoked: 30 Advance Directives: No Advance Directives Information Provided: No Patient : No Physical Exam Vital Signs: Vital Signs: Last Vital Signs Temp 96 F L 03/10/21 21:35 Pulse 84 03/10/21 21:35 Resp 18 03/10/21 21:35 BP 134/78 03/10/21 21:35 Pulse Ox 100 03/10/21 21:35 Body Mass Index 27.4 Const: General: no acute distress HENMT: Teeth image: 1. Edentulous with all teeth removed gumline healthy no pus discharge suture intact Resp: Effort & Inspection: normal respiratory effort Auscultation: clear to auscultation bilaterally Cardio: Rate: regular rate Rhythm: regular rhythm Heart sounds: S1 normal heart sound present and S2 normal heart sound present MDM - Dental/Oral MDM Narrative Medical decision making narrative: Patient gum pain after teeth extraction will give prescription for oxycodone no signs of infection Discharge Plan Discharge Clinical Impression: Toothache Patient Disposition: Home, Self-Care Instructions: Toothache (ED) Additional Instructions: Take pain medication as prescribed and follow with dentist Prescriptions: New oxycodone 5 mg tablet 5 mg PO Q6H PRN (Reason: Pain (Scale Score 7-10)) Qty: 20 RF: 0 No Action cholecalciferol (vitamin D3) 50 mcg (2,000 unit) capsule 50 mcg PO DAILY Qty: 30 RF: 11 oxycodone-acetaminophen 5-325 mg tablet 1 tab PO Q8H PRN (Reason: pain) Qty: 9 RF: 0 pantoprazole 40 mg tablet,delayed release (DR/EC) 40 mg PO DAILY Qty: 60 RF: 0 cyclobenzaprine 10 mg tablet 10 mg PO Q8H Qty: 20 RF: 0 tramadol 50 mg tablet 50 mg PO Q6H PRN (Reason: pain) Qty: 20 RF: 0 sertraline 50 mg Tablet 50 mg PO BEDTIME RF: 0 hydroxyzine HCl 25 mg tablet 50 mg PO BEDTIME RF: 0 hydrocodone-acetaminophen 5-325 mg tablet 1 tab PO Q4-6H PRN (Reason: pain) Qty: 10 RF: 0 sucralfate [Carafate] 1 gram tablet 1 g PO BID Qty: 60 RF: 6 metformin 500 mg tablet extended release 24 hr 500 mg PO DAILY 30 Days Qty: 30 RF: 5 acarbose 25 mg tablet 25 mg PO TID 30 Days Qty: 90 RF: 4 hydrochlorothiazide 12.5 mg capsule 12.5 mg PO DAILY RF: 0 ondansetron HCl 4 mg tablet 4 mg PO Q8H PRN (Reason: nausea and vomiting) Qty: 60 RF: 4 ropinirole 1 mg tablet 1 mg PO BEDTIME RF: 0
[2021-03-10] MEDS: oxyCODONE HCl Immed Release 5 MG TABLET 10 MG PO (22:20)
== END 2021-03-10 22:32 | disposition home or self-care (01) ==
PROVIDERS: Emergency Provider Internal Medicine; PCP Student in an Organized Health Care Education/Training Program
DX: K08.89 Other specified disorders of teeth and supporting structures (principal); F17.210 Nicotine dependence, cigarettes, uncomplicated; E11.9 Type 2 diabetes mellitus without complications; E78.5 Hyperlipidemia, unspecified
CPT/HCPCS: 99283; 99284

== ENCOUNTER 2021-03-22 13:34 | Emergency (ER) | payer MEDICAID, SELFPAY ==
[2021-03-22 13:41] VITALS: BP 122/81; PULSE 79; RESP 16; TEMP 36.6; O2SAT 98; BMI 26.7
--- NOTE | 2021-03-22 16:09 | ED.GENADULT ---
HPI - General Adult General Chief complaint: Dental/Oral Stated complaint: DENTAL PAIN Time Seen by Provider: 03/22/21 16:09 Source: patient Mode of arrival: ambulatory History of Present Illness HPI narrative: 60-year-old female with a past medical history of anxiety, asthma, diabetes, depression for DVT, hyperlipidemia, GERD, s/p gastric bypass, s/p all top teeth extracted 1 week ago presenting to the ED reporting increased pain/swelling to upper gums x a few days. Reports ran out of pain medication/follow-up is not for 5 more days. Denies fever, chills, drainage from area, ear pain, throat pain, inability to swallow Related Data Home Medications Medication Instructions Recorded Confirmed sertraline 50 mg tablet 50 mg PO BEDTIME 04/24/20 12/31/20 hydrochlorothiazide 12.5 mg capsule 12.5 mg PO DAILY 05/09/20 12/31/20 hydroxyzine HCl 25 mg tablet 50 mg PO BEDTIME tab 06/04/20 12/31/20 ropinirole 1 mg tablet 1 mg PO BEDTIME 10/28/20 12/31/20 Previous Rx's Medication Instructions Recorded ondansetron HCl 4 mg tablet 4 mg PO Q8H PRN #60 tab 05/09/20 sucralfate 1 gram tablet (Carafate) 1 g PO BID #60 tab 06/04/20 hydrocodone 5 mg-acetaminophen 325 1 tab PO Q4-6H PRN #10 tab 12/09/20 mg tablet cholecalciferol (vitamin D3) 50 50 mcg PO DAILY #30 cap 12/15/20 mcg (2,000 unit) capsule acarbose 25 mg tablet 25 mg PO TID 30 Days #90 tab 12/31/20 metformin 500 mg tablet,extended 500 mg PO DAILY 30 Days #30 tab 12/31/20 release 24 hr oxycodone-acetaminophen 5 mg-325 1 tab PO Q8H PRN #9 tab 01/19/21 mg tablet pantoprazole 40 mg tablet,delayed 40 mg PO DAILY #60 tab 02/27/21 release cyclobenzaprine 10 mg tablet 10 mg PO Q8H #20 tab 03/01/21 tramadol 50 mg tablet 50 mg PO Q6H PRN #20 tab 03/01/21 oxycodone 5 mg tablet 5 mg PO Q6H PRN #20 tab 03/10/21 clindamycin HCl 300 mg capsule 450 mg PO Q8H 7 Days #32 cap 03/22/21 hydrocodone 5 mg-acetaminophen 325 1 tab PO Q8H PRN 3 Days #5 tab 03/22/21 mg tablet Allergies Allergy/AdvReac Type Severity Reaction Status Date / Time Penicillins Allergy Intermediate HIVES Verified 03/01/21 18:13 sulfamethoxazole Allergy Intermediate BLISTERS- Verified 03/01/21 18:13 [From BACTRIM] DELGADO - NERVE ENDINGS IN HAND/ERYTHEMA MULTIFORM trimethoprim [From BACTRIM] Allergy Intermediate BLISTERS- Verified 03/01/21 18:13 DELGADO - NERVE ENDINGS IN HAND/ERYTHEMA MULTIFORM latex [Latex] Allergy Mild RASH Verified 03/01/21 18:13 theophylline AdvReac Intermediate TACHYCARDIA Verified 03/01/21 18:13 TEGADERM Allergy Intermediate SKIN TEARS Uncoded 02/06/21 14:57 From COMPAZINE AdvReac Severe SEIZURES Uncoded 02/06/21 14:57 Review of Systems Review of Systems: Constitutional: No Fever, No Chills ENT/Mouth: No Ear Pain, + gingival pain, No Hoarseness, No sore throat, No Rhinorrhea, No Swallowing Difficulty Cardiovascular: No Chest Pain, No SOB Respiratory: No Cough Gastrointestinal: No Nausea, No Vomiting, No Abdominal pain Musculoskeletal: No joint pain, No Myalgias Skin: No Skin Lesions, No rash Neuro: No Weakness, No Numbness Yes all other systems are reviewed and are negative PMF Past Medical History Attestation statement: The following information was validated with the patient. Medical History Anastomotic ulcer Anxiety Asthma Borderline diabetes Depression Diabetes type 2, controlled DVT (deep venous thrombosis) Dyslipidemia GERD (gastroesophageal reflux disease) High cholesterol History of restless legs syndrome Non-toxic multinodular goiter Surgical History History of hysterectomy Hx of esophagogastroduodenoscopy Hx of hand surgery S/P gastric bypass Family History Family History Unknown No problems noted. Mother Diabetes mellitus CHF (congestive heart failure) Kidney failure Cervical cancer Brother No problems noted. Brother No problems noted. Social History Social History Are you a primary pet care associate to a significant other at home: No Do you presently have visiting nurse or other home services: No Alcohol intake: never Patient Tobacco Use Status: Current someday Tobacco user Cigarettes Per Day: 30 Years Smoked: 30 Advance Directives: Yes Advance Directives Information Provided: Yes Advance Directives on File: No Physical Exam Vital Signs: Vital Signs: Last Vital Signs Temp 98 F 03/22/21 13:41 Pulse 79 03/22/21 13:41 Resp 16 03/22/21 13:41 BP 122/81 03/22/21 13:41 Pulse Ox 98 03/22/21 13:41 Body Mass Index 26.7 Const: General: cooperative and healthy appearing Orientation/consciousness: patient oriented x3 Limitations: no limitations HENMT: Other: Upper gums with mild swelling/erythema and diffuse tenderness. No focal fluctuance/induration or pus drainage. No evidence of cellulitis Head: Yes normal to inspection Ears: hearing grossly normal bilaterally General nose exam: Normal external nose present Face and sinus: Yes normal facial exam Throat: Yes posterior oropharynx normal, Yes tonsils normal and Yes uvula midline Eyes: General: appearance normal, both eyes and all related structures EOM: EOMs intact bilaterally Neck: Neck: Yes normal visual inspection and Yes no meningeal signs Resp: Effort & Inspection: normal respiratory effort and no respiratory distress Cardio: Rate: regular rate Skin: Rashes: no rashes Wounds: no wounds Neuro: General: patient oriented x3 and no meningeal signs Gait exam (Neuro): Normal gait present Extrem: General: Yes normal to inspection Medical Decision Making [facility] Narrative Medical decision making narrative: 60-year-old female with a past medical history of anxiety, asthma, diabetes, depression for DVT, hyperlipidemia, GERD, s/p gastric bypass, s/p all top teeth extracted 1 week ago presenting to the ED reporting increased pain/swelling to upper gums x a few days. On exam VSS, NAD, physical exam as above. Likely gingivitis. No evidence of dental abscess Discharge Plan Discharge Clinical Impression: Acute gingivitis Patient Disposition: Home, Self-Care Instructions: Gingivitis (ED) Additional Instructions: Clindamycin as an antibiotic, take as prescribed [place] as an opiate pain medication, take only when pain is severe for the next 3 days and please follow up with her dentist If her symptoms persist or worsen, you develop fever please return to the ED Prescriptions: New clindamycin HCl 300 mg capsule 450 mg PO Q8H 7 Days Qty: 32 RF: 0 hydrocodone-acetaminophen 5-325 mg tablet 1 tab PO Q8H PRN (Reason: pain, severe) 3 Days Qty: 5 RF: 0 No Action cholecalciferol (vitamin D3) 50 mcg (2,000 unit) capsule 50 mcg PO DAILY Qty: 30 RF: 11 oxycodone-acetaminophen 5-325 mg tablet 1 tab PO Q8H PRN (Reason: pain) Qty: 9 RF: 0 pantoprazole 40 mg tablet,delayed release (DR/EC) 40 mg PO DAILY Qty: 60 RF: 0 cyclobenzaprine 10 mg tablet 10 mg PO Q8H Qty: 20 RF: 0 tramadol 50 mg tablet 50 mg PO Q6H PRN (Reason: pain) Qty: 20 RF: 0 oxycodone 5 mg tablet 5 mg PO Q6H PRN (Reason: Pain (Scale Score 7-10)) Qty: 20 RF: 0 sertraline 50 mg Tablet 50 mg PO BEDTIME RF: 0 hydroxyzine HCl 25 mg tablet 50 mg PO BEDTIME RF: 0 hydrocodone-acetaminophen 5-325 mg tablet 1 tab PO Q4-6H PRN (Reason: pain) Qty: 10 RF: 0 sucralfate [Carafate] 1 gram tablet 1 g PO BID Qty: 60 RF: 6 metformin 500 mg tablet extended release 24 hr 500 mg PO DAILY 30 Days Qty: 30 RF: 5 acarbose 25 mg tablet 25 mg PO TID 30 Days Qty: 90 RF: 4 hydrochlorothiazide 12.5 mg capsule 12.5 mg PO DAILY RF: 0 ondansetron HCl 4 mg tablet 4 mg PO Q8H PRN (Reason: nausea and vomiting) Qty: 60 RF: 4 ropinirole 1 mg tablet 1 mg PO BEDTIME RF: 0 Referrals: Joyce Tapia MD [Primary Care Provider] - 2 days Interventions: ED Discharge Assessment Last Done: 03/22/21 16:24 Discharge Date/Time: 03/22/21 16:25
[2021-03-22] MEDS: HYDROcodone Bit/Acetam 5/325 TABLET 1 TAB PO (16:15)
== END 2021-03-22 16:25 | disposition home or self-care (01) ==
PROVIDERS: Emergency Provider Emergency Medicine Emergency Medical Services; PCP Student in an Organized Health Care Education/Training Program
DX: K05.00 Acute gingivitis, plaque induced (principal); Z79.899 Other long term (current) drug therapy; Z98.84 Bariatric surgery status
CPT/HCPCS: 99284

== ENCOUNTER 2021-04-09 09:30 | Emergency (ER) | payer MEDICAID, SELFPAY ==
[2021-04-09 09:56] VITALS: BP 116/67; PULSE 82; RESP 18; TEMP 35.9; O2SAT 98; BMI 27.4
--- NOTE | 2021-04-09 11:18 | ED_ITS ---
HPI - Dental/Oral General Chief complaint: Dental/Oral Stated complaint: DENTAL ISSUE Time Seen by Provider: 04/09/21 11:17 Source: patient Mode of arrival: ambulatory Limitations: no limitations History of Present Illness HPI Narrative: 60-year-old female with past medical history of dyslipidemia, diabetes, is here today for complaint of upper gums pain. Patient had oral surgery over a month ago and she still continues to have a lot of pain. Patient was seen here in the past twice for same. Was unable to see her surgeon for another 2 weeks. Patient is swishing her mouth with prescribed mouthwash. She completed clindamycin 1 week ago. Patient is having hard time chewing or eating. Patient denies any drainage or any blood. Denies any difficulty of swallowing. Reports that the pain is mainly in the front. Patient denies any fall holders, any dyspepsia or any bad taste in her mouth MD Complaint: tooth pain (edentulous upper gums) Related Data Home Medications Medication Instructions Recorded Confirmed sertraline 50 mg tablet 50 mg PO BEDTIME 04/24/20 12/31/20 hydrochlorothiazide 12.5 mg capsule 12.5 mg PO DAILY 05/09/20 12/31/20 hydroxyzine HCl 25 mg tablet 50 mg PO BEDTIME tab 06/04/20 12/31/20 ropinirole 1 mg tablet 1 mg PO BEDTIME 10/28/20 12/31/20 Previous Rx's Medication Instructions Recorded ondansetron HCl 4 mg tablet 4 mg PO Q8H PRN #60 tab 05/09/20 sucralfate 1 gram tablet (Carafate) 1 g PO BID #60 tab 06/04/20 hydrocodone 5 mg-acetaminophen 325 1 tab PO Q4-6H PRN #10 tab 12/09/20 mg tablet cholecalciferol (vitamin D3) 50 50 mcg PO DAILY #30 cap 12/15/20 mcg (2,000 unit) capsule acarbose 25 mg tablet 25 mg PO TID 30 Days #90 tab 12/31/20 metformin 500 mg tablet,extended 500 mg PO DAILY 30 Days #30 tab 12/31/20 release 24 hr oxycodone-acetaminophen 5 mg-325 1 tab PO Q8H PRN #9 tab 01/19/21 mg tablet cyclobenzaprine 10 mg tablet 10 mg PO Q8H #20 tab 03/01/21 tramadol 50 mg tablet 50 mg PO Q6H PRN #20 tab 03/01/21 oxycodone 5 mg tablet 5 mg PO Q6H PRN #20 tab 03/10/21 clindamycin HCl 300 mg capsule 450 mg PO Q8H 7 Days #32 cap 03/22/21 hydrocodone 5 mg-acetaminophen 325 1 tab PO Q8H PRN 3 Days #5 tab 03/22/21 mg tablet pantoprazole 40 mg tablet,delayed 40 mg PO DAILY #60 tab 04/06/21 release doxycycline hyclate 100 mg tablet 100 mg PO BID 10 Days #20 tab 04/09/21 oxycodone 5 mg tablet 5 mg PO Q4-6H PRN #7 tab 04/09/21 Allergies Allergy/AdvReac Type Severity Reaction Status Date / Time Penicillins Allergy Intermediate HIVES Verified 04/09/21 09:56 sulfamethoxazole Allergy Intermediate BLISTERS- Verified 04/09/21 09:56 [From BACTRIM] DELGADO - NERVE ENDINGS IN HAND/ERYTHEMA MULTIFORM trimethoprim [From BACTRIM] Allergy Intermediate BLISTERS- Verified 04/09/21 09:56 DELGADO - NERVE ENDINGS IN HAND/ERYTHEMA MULTIFORM latex [Latex] Allergy Mild RASH Verified 04/09/21 09:56 theophylline AdvReac Intermediate TACHYCARDIA Verified 04/09/21 09:56 TEGADERM Allergy Intermediate SKIN TEARS Uncoded 02/06/21 14:57 From COMPAZINE AdvReac Severe SEIZURES Uncoded 02/06/21 14:57 Review of Systems Review of Systems: Constitutional : No Weight loss, No Fever, No Chills, No Night Sweats, No Fatigue, No Malaise ENT/Mouth : No Hearing loss, No Ear Pain, No Nasal Congestion, No Sinus Pain, No Hoarseness, No sore throat, No Rhinorrhea, No Swallowing Difficulty, gum pain Eyes: No Eye Pain, No Swelling, No Redness, No Foreign Body, No Discharge, No Vision Changes Cardiovascular : No Chest Pain, No SOB, No Dyspnea on Exertion, No Orthopnea, No Edema, No Palpitations Respiratory : No Cough, No Sputum, No Wheezing, No Smoke Exposure, No Dyspnea Gastrointestinal : No Nausea, No Vomiting, No Diarrhea, No Constipation, No abdominal Pain, No Hematochezia, No Melena Genitourinary : no irregular bleeding, No Dysuria, No Urinary Frequency, No Hematuria, No Urinary Incontinence, No Urgency, No Flank Pain, No Urinary Flow Changes, No Hesitancy Musculoskeletal : No joint pain, No Myalgias, No Joint Swelling Skin : No Skin Lesions, No rash Neuro : No Weakness, No Numbness, No Paresthesias, No Loss of Consciousness, No Dizziness, No Headache Yes all other systems are reviewed and are negative PMFSH Past Medical History Medical History Anastomotic ulcer Anxiety Asthma Borderline diabetes Depression Diabetes type 2, controlled DVT (deep venous thrombosis) Dyslipidemia GERD (gastroesophageal reflux disease) High cholesterol History of restless legs syndrome Non-toxic multinodular goiter Surgical History History of hysterectomy Hx of esophagogastroduodenoscopy Hx of hand surgery S/P gastric bypass Family History Family History Unknown No problems noted. Mother Diabetes mellitus CHF (congestive heart failure) Kidney failure Cervical cancer Brother No problems noted. Brother No problems noted. Social History Social History Are you a primary inpatient care manager rn to a significant other at home: No Do you presently have visiting nurse or other home services: No Alcohol intake: never Patient Tobacco Use Status: Current someday Tobacco user Cigarettes Per Day: 30 Years Smoked: 30 Advance Directives: Yes Advance Directives Information Provided: Yes Advance Directives on File: No Patient : No Physical Exam Vital Signs: Vital Signs: Last Vital Signs Temp 97.8 F 04/09/21 12:08 Pulse 61 04/09/21 12:08 Resp 16 04/09/21 12:08 BP 114/68 04/09/21 12:08 Pulse Ox 99 04/09/21 12:08 Body Mass Index 27.4 Const: General: healthy appearing, no acute distress and well developed Nutritional Appearance: well nourished Orientation/consciousness: patient oriented x3 HENMT: Head: Yes normal to inspection, Yes normocephalic and Yes atraumatic Ears: hearing grossly normal bilaterally General nose exam: Normal external nose present Face and sinus: Yes normal facial exam, Yes sinuses nontender and Yes face symmetric Mouth: lip normal, tongue normal, oropharynx normal and moist mucous membranes Teeth and gingiva: gingiva abnormal and other (Upper gum swelling, status post surgery, redness no abscess) Teeth image: 1. Edentulous upper gums. No abscess no drainage, mild swelling and tenderness to area from 6-12 Throat: Yes posterior oropharynx normal and Yes tonsils normal Neck: Neck: Yes normal visual inspection, Yes full ROM and Yes trachea midline Thyroid: Thyroid normal Resp: Auscultation: clear to auscultation bilaterally Cardio: Rate: regular rate Rhythm: regular rhythm GI: Inspection: Yes normal to inspection and No distended Palpation (GI): No hepatosplenomegaly present Auscultation: normal bowel sounds Skin: General skin exam: elasticity normal, turgor normal and dry skin Neuro: General: patient oriented x3 Course Course Course Narrative: 60-year-old female is here today for severe discomfort to her upper gum line. Patient was seen here twice in the past month. Her surgery was a month ago. Upon exam there is no abscess. Top gum line from 6-12 macerated. Patient unable to see her surgeon for another 2 weeks. She will need a antibiotic and pain control. Patient was on clindamycin in the past. I will send her home with doxy and oxycodone. She will is to call her surgeon tomorrow as she might need to be seen sooner. Her surgeon was Dr. Alex Sauceda. Discharge Plan Discharge Clinical Impression: Toothache, Pain of gingiva Patient Disposition: Home, Self-Care Instructions: Periodontal Disease (DC) Additional Instructions: You were seen here today for gum pain. You were given dose of pain medication and antibiotic. Please make sure you take all the antibiotics. While you taking the pain medication please make sure you do not drive. Please make sure you follow-up with your oral surgeon for further treatment. F/u with Dr. Alex Sauceda at [phone]. You may return to emergency department if your symptoms will get worse or if you will experience any additional concerning symptoms Prescriptions: New doxycycline hyclate 100 mg tablet 100 mg PO BID 10 Days Qty: 20 RF: 0 oxycodone 5 mg tablet 5 mg PO Q4-6H PRN (Reason: pain) Qty: 7 RF: 0 No Action cholecalciferol (vitamin D3) 50 mcg (2,000 unit) capsule 50 mcg PO DAILY Qty: 30 RF: 11 oxycodone-acetaminophen 5-325 mg tablet 1 tab PO Q8H PRN (Reason: pain) Qty: 9 RF: 0 pantoprazole 40 mg tablet,delayed release (DR/EC) 40 mg PO DAILY Qty: 60 RF: 6 cyclobenzaprine 10 mg tablet 10 mg PO Q8H Qty: 20 RF: 0 tramadol 50 mg tablet 50 mg PO Q6H PRN (Reason: pain) Qty: 20 RF: 0 oxycodone 5 mg tablet 5 mg PO Q6H PRN (Reason: Pain (Scale Score 7-10)) Qty: 20 RF: 0 sertraline 50 mg Tablet 50 mg PO BEDTIME RF: 0 hydroxyzine HCl 25 mg tablet 50 mg PO BEDTIME RF: 0 hydrocodone-acetaminophen 5-325 mg tablet 1 tab PO Q4-6H PRN (Reason: pain) Qty: 10 RF: 0 clindamycin HCl 300 mg capsule 450 mg PO Q8H 7 Days Qty: 32 RF: 0 hydrocodone-acetaminophen 5-325 mg tablet 1 tab PO Q8H PRN (Reason: pain, severe) 3 Days Qty: 5 RF: 0 sucralfate [Carafate] 1 gram tablet 1 g PO BID Qty: 60 RF: 6 metformin 500 mg tablet extended release 24 hr 500 mg PO DAILY 30 Days Qty: 30 RF: 5 acarbose 25 mg tablet 25 mg PO TID 30 Days Qty: 90 RF: 4 hydrochlorothiazide 12.5 mg capsule 12.5 mg PO DAILY RF: 0 ondansetron HCl 4 mg tablet 4 mg PO Q8H PRN (Reason: nausea and vomiting) Qty: 60 RF: 4 ropinirole 1 mg tablet 1 mg PO BEDTIME RF: 0 Referrals: Joyce Tapia MD [Primary Care Provider] - 2 days Interventions: ED Discharge Assessment Last Done: 04/09/21 12:08 Discharge Date/Time: 04/09/21 12:12
[2021-04-09] MEDS: oxyCODONE HCl Immed Release 5 MG TABLET PO (11:47)
[2021-04-09 12:08] VITALS: BP 114/68; PULSE 61; RESP 16; TEMP 36.6; O2SAT 99
== END 2021-04-09 12:12 | disposition home or self-care (01) ==
PROVIDERS: Emergency Provider Emergency Medicine; PCP Student in an Organized Health Care Education/Training Program
DX: K08.89 Other specified disorders of teeth and supporting structures (principal); K06.9 Disorder of gingiva and edentulous alveolar ridge, unspecified; E11.9 Type 2 diabetes mellitus without complications; Z79.84 Long term (current) use of oral hypoglycemic drugs
CPT/HCPCS: 99283; 99284

== ENCOUNTER 2021-06-12 05:26 | Emergency (ER) | payer MEDICAID, SELFPAY ==
[2021-06-12 05:33] VITALS: BP 138/79; PULSE 84; RESP 18; TEMP 36.2; O2SAT 99; BMI 27.3
--- NOTE | 2021-06-12 06:16 | PC.NURSE ---
Patient states that her insurance didn't cover the amerigel which was recommended to put on toe but did pay for antifungal [place] when her toenail grows back and heals. MD administered lidocaine into her big toe to help decrease patient's discomfort
[2021-06-12] MEDS: Lidocaine HCl 2 % MPF 5 ML VIAL SUBCUT (06:22)
--- NOTE | 2021-06-12 06:24 | ED_ITS ---
HPI - Extremity Problem General Chief complaint: Extremity Problem Stated complaint: toe infection? Time Seen by Provider: 06/12/21 06:00 Source: patient Mode of arrival: ambulatory History of Present Illness HPI Narrative: 60-year-old female who states she had her left great toenail removed in the clinic on 06/09/2021 and states that she was told not to apply anything to the nail bed until it completely healed. However, patient states that it has increased in pain and is now throbbing in nature and she describes it as a 10/10 in intensity and is concerned for infection given her underlying diabetes. She otherwise denies any fever chills. Related Data Home Medications Medication Instructions Recorded Confirmed sertraline 50 mg tablet 50 mg PO BEDTIME 04/24/20 12/31/20 hydrochlorothiazide 12.5 mg capsule 12.5 mg PO DAILY 05/09/20 12/31/20 hydroxyzine HCl 25 mg tablet 50 mg PO BEDTIME tab 06/04/20 12/31/20 ropinirole 1 mg tablet 1 mg PO BEDTIME 10/28/20 12/31/20 Previous Rx's Medication Instructions Recorded ondansetron HCl 4 mg tablet 4 mg PO Q8H PRN #60 tab 05/09/20 sucralfate 1 gram tablet (Carafate) 1 g PO BID #60 tab 06/04/20 hydrocodone 5 mg-acetaminophen 325 1 tab PO Q4-6H PRN #10 tab 12/09/20 mg tablet cholecalciferol (vitamin D3) 50 50 mcg PO DAILY #30 cap 12/15/20 mcg (2,000 unit) capsule acarbose 25 mg tablet 25 mg PO TID 30 Days #90 tab 12/31/20 metformin 500 mg tablet,extended 500 mg PO DAILY 30 Days #30 tab 12/31/20 release 24 hr oxycodone-acetaminophen 5 mg-325 1 tab PO Q8H PRN #9 tab 01/19/21 mg tablet cyclobenzaprine 10 mg tablet 10 mg PO Q8H #20 tab 03/01/21 tramadol 50 mg tablet 50 mg PO Q6H PRN #20 tab 03/01/21 oxycodone 5 mg tablet 5 mg PO Q6H PRN #20 tab 03/10/21 clindamycin HCl 300 mg capsule 450 mg PO Q8H 7 Days #32 cap 03/22/21 hydrocodone 5 mg-acetaminophen 325 1 tab PO Q8H PRN 3 Days #5 tab 03/22/21 mg tablet pantoprazole 40 mg tablet,delayed 40 mg PO DAILY #60 tab 04/06/21 release doxycycline hyclate 100 mg tablet 100 mg PO BID 10 Days #20 tab 04/09/21 oxycodone 5 mg tablet 5 mg PO Q4-6H PRN #7 tab 04/09/21 Allergies Allergy/AdvReac Type Severity Reaction Status Date / Time Penicillins Allergy Intermediate HIVES Verified 04/09/21 09:56 sulfamethoxazole Allergy Intermediate BLISTERS- Verified 04/09/21 09:56 [From BACTRIM] DELGADO - NERVE ENDINGS IN HAND/ERYTHEMA MULTIFORM trimethoprim [From BACTRIM] Allergy Intermediate BLISTERS- Verified 04/09/21 09:56 DELGADO - NERVE ENDINGS IN HAND/ERYTHEMA MULTIFORM latex [Latex] Allergy Mild RASH Verified 04/09/21 09:56 theophylline AdvReac Intermediate TACHYCARDIA Verified 04/09/21 09:56 TEGADERM Allergy Intermediate SKIN TEARS Uncoded 02/06/21 14:57 From COMPAZINE AdvReac Severe SEIZURES Uncoded 02/06/21 14:57 Review of Systems Review of Systems: Pertinent positives and negatives as stated in HPI 10 point review of systems is otherwise negative. [facility] Past Medical History Source: nursing notes reviewed Medical History Anastomotic ulcer Anxiety Asthma Borderline diabetes Depression Diabetes type 2, controlled DVT (deep venous thrombosis) Dyslipidemia GERD (gastroesophageal reflux disease) High cholesterol History of restless legs syndrome Non-toxic multinodular goiter Surgical History History of hysterectomy Hx of esophagogastroduodenoscopy Hx of hand surgery S/P gastric bypass Family History Family History Unknown No problems noted. Mother Diabetes mellitus CHF (congestive heart failure) Kidney failure Cervical cancer Brother No problems noted. Brother No problems noted. Social History Social History Are you a primary director medicare sales to a significant other at home: No Do you presently have visiting nurse or other home services: No Alcohol intake: unknown Patient Tobacco Use Status: Current someday Tobacco user Cigarettes Per Day: 30 Years Smoked: 30 Use of substances other than those prescribed or required for medical reasons: Unknown Advance Directives: No Advance Directives Information Provided: Yes Patient : No Physical Exam Vital Signs: Vital Signs: Last Vital Signs Temp 97.2 F 06/12/21 05:33 Pulse 84 06/12/21 05:33 Resp 18 06/12/21 05:33 BP 138/79 06/12/21 05:33 Pulse Ox 99 06/12/21 05:33 BMI result Body Mass Index 27.3 VITAL SIGNS: Reviewed. GENERAL: Well developed, well nourished, mild distress. HEAD: Normocephalic/atraumatic EYES: PERRLA, EOMI OROPHARYNX: no oral lesions noted, posterior pharynx clear LUNGS: Normal breath sounds. SpO2<99> CARDIOVASCULAR: Regular rate and rhythm without noted murmurs, no JVD or lower extremity edema. ABDOMEN: Soft, non-tender, non-distended with bowel sounds. LEFT GREAT TOE: obvious nail missing with well-healing but dry appearing nail bed and toe is swollen but without erythema/ induration and no evidence of purulence drainage NEUROLOGIC: Alert and oriented x 4. Course Course Course Narrative: 60-year-old female with history and clinical presentation consistent with pain secondary to drying out of surgical bed in combination with pressure location. Performed a digital block for patient's comfort and dressed wound with bacitracin and application of Telfa a with Kerlix gauze in a distal to proximal fashion in an effort to help alleviate some of the pressure. Patient also received combination analgesics here in the emergency room and then was discharged home in stable condition. There is no evidence infection at this time. Discharge Plan Discharge Clinical Impression: Pain in toe of left foot Patient Disposition: Home, Self-Care Instructions: Nail Removal (ED) Additional Instructions: 1. Follow-up with your primary care provider today. 2. Recommend gentle cleansing with soap and water, blot dry, apply antibiotic ointment to the nail bed and keep elevated as much as possible. 3. Tylenol 1000 mg, orally, every 6 hours as needed for pain control. Do not exceed 4000 mg within 24 hours. Return to the ER for worsening symptoms. Prescriptions: No Action cholecalciferol (vitamin D3) 50 mcg (2,000 unit) capsule 50 mcg PO DAILY Qty: 30 RF: 11 oxycodone-acetaminophen 5-325 mg tablet 1 tab PO Q8H PRN (Reason: pain) Qty: 9 RF: 0 pantoprazole 40 mg tablet,delayed release (DR/EC) 40 mg PO DAILY Qty: 60 RF: 6 cyclobenzaprine 10 mg tablet 10 mg PO Q8H Qty: 20 RF: 0 tramadol 50 mg tablet 50 mg PO Q6H PRN (Reason: pain) Qty: 20 RF: 0 oxycodone 5 mg tablet 5 mg PO Q6H PRN (Reason: Pain (Scale Score 7-10)) Qty: 20 RF: 0 sertraline 50 mg Tablet 50 mg PO BEDTIME RF: 0 hydroxyzine HCl 25 mg tablet 50 mg PO BEDTIME RF: 0 hydrocodone-acetaminophen 5-325 mg tablet 1 tab PO Q4-6H PRN (Reason: pain) Qty: 10 RF: 0 clindamycin HCl 300 mg capsule 450 mg PO Q8H 7 Days Qty: 32 RF: 0 hydrocodone-acetaminophen 5-325 mg tablet 1 tab PO Q8H PRN (Reason: pain, severe) 3 Days Qty: 5 RF: 0 doxycycline hyclate 100 mg tablet 100 mg PO BID 10 Days Qty: 20 RF: 0 oxycodone 5 mg tablet 5 mg PO Q4-6H PRN (Reason: pain) Qty: 7 RF: 0 sucralfate [Carafate] 1 gram tablet 1 g PO BID Qty: 60 RF: 6 metformin 500 mg tablet extended release 24 hr 500 mg PO DAILY 30 Days Qty: 30 RF: 5 acarbose 25 mg tablet 25 mg PO TID 30 Days Qty: 90 RF: 4 hydrochlorothiazide 12.5 mg capsule 12.5 mg PO DAILY RF: 0 ondansetron HCl 4 mg tablet 4 mg PO Q8H PRN (Reason: nausea and vomiting) Qty: 60 RF: 4 ropinirole 1 mg tablet 1 mg PO BEDTIME RF: 0 Referrals: Joyce Tapia MD [Primary Care Provider] - 2 days
[2021-06-12] MEDS: Acetaminophen 325 MG TABLET 975 MG PO (06:44)
[2021-06-12] MEDS: Ketorolac Tromethamine 30 MG/ML VIAL 15 MG IM (06:44)
== END 2021-06-12 06:49 | disposition home or self-care (01) ==
PROVIDERS: Emergency Provider Student in an Organized Health Care Education/Training Program; PCP Student in an Organized Health Care Education/Training Program
DX: M79.672 Pain in left foot (principal); Z79.899 Other long term (current) drug therapy
CPT/HCPCS: 96372; 99284; J1885

== ENCOUNTER 2021-06-14 01:45 | Emergency (ER) | payer MEDICAID, SELFPAY ==
[2021-06-14 01:52] VITALS: BP 128/78; PULSE 95; RESP 16; TEMP 528.3; TEMP 983; O2SAT 95; BMI 27.3
--- NOTE | 2021-06-14 02:11 | ED.GENADULT ---
HPI - General Adult General Chief complaint: Fall Stated complaint: od/seizure Time Seen by Provider: 06/14/21 01:51 Source: patient, family () and EMS Mode of arrival: EMS History of Present Illness HPI narrative: This is a 60-year-old female with history diabetes and presents EMS after her heard a ?thud? and found the patient on the floor ?shaking violently? as per EMS. EMS states that ?she had a seizure and she does not have a seizure history. We thing she took too many of her narcotics?. On questioning the patient she states she does not know what happened and denies any illicit drug or alcohol use and says she took her prescribed medication and did not take extra. Related Data Home Medications Medication Instructions Recorded Confirmed sertraline 50 mg tablet 50 mg PO BEDTIME 04/24/20 12/31/20 hydrochlorothiazide 12.5 mg capsule 12.5 mg PO DAILY 05/09/20 12/31/20 hydroxyzine HCl 25 mg tablet 50 mg PO BEDTIME tab 06/04/20 12/31/20 ropinirole 1 mg tablet 1 mg PO BEDTIME 10/28/20 12/31/20 Previous Rx's Medication Instructions Recorded ondansetron HCl 4 mg tablet 4 mg PO Q8H PRN #60 tab 05/09/20 sucralfate 1 gram tablet (Carafate) 1 g PO BID #60 tab 06/04/20 hydrocodone 5 mg-acetaminophen 325 1 tab PO Q4-6H PRN #10 tab 12/09/20 mg tablet cholecalciferol (vitamin D3) 50 50 mcg PO DAILY #30 cap 12/15/20 mcg (2,000 unit) capsule acarbose 25 mg tablet 25 mg PO TID 30 Days #90 tab 12/31/20 metformin 500 mg tablet,extended 500 mg PO DAILY 30 Days #30 tab 12/31/20 release 24 hr oxycodone-acetaminophen 5 mg-325 1 tab PO Q8H PRN #9 tab 01/19/21 mg tablet cyclobenzaprine 10 mg tablet 10 mg PO Q8H #20 tab 03/01/21 tramadol 50 mg tablet 50 mg PO Q6H PRN #20 tab 03/01/21 oxycodone 5 mg tablet 5 mg PO Q6H PRN #20 tab 03/10/21 clindamycin HCl 300 mg capsule 450 mg PO Q8H 7 Days #32 cap 03/22/21 hydrocodone 5 mg-acetaminophen 325 1 tab PO Q8H PRN 3 Days #5 tab 03/22/21 mg tablet pantoprazole 40 mg tablet,delayed 40 mg PO DAILY #60 tab 04/06/21 release doxycycline hyclate 100 mg tablet 100 mg PO BID 10 Days #20 tab 04/09/21 oxycodone 5 mg tablet 5 mg PO Q4-6H PRN #7 tab 04/09/21 Allergies Allergy/AdvReac Type Severity Reaction Status Date / Time Penicillins Allergy Intermediate HIVES Verified 04/09/21 09:56 sulfamethoxazole Allergy Intermediate BLISTERS- Verified 04/09/21 09:56 [From BACTRIM] DELGADO - NERVE ENDINGS IN HAND/ERYTHEMA MULTIFORM trimethoprim [From BACTRIM] Allergy Intermediate BLISTERS- Verified 04/09/21 09:56 DELGADO - NERVE ENDINGS IN HAND/ERYTHEMA MULTIFORM latex [Latex] Allergy Mild RASH Verified 04/09/21 09:56 theophylline AdvReac Intermediate TACHYCARDIA Verified 04/09/21 09:56 TEGADERM Allergy Intermediate SKIN TEARS Uncoded 02/06/21 14:57 From COMPAZINE AdvReac Severe SEIZURES Uncoded 02/06/21 14:57 Review of Systems Review of Systems: Pertinent positives and negatives as stated in HPI 10 point review of systems is otherwise negative. [facility] Past Medical History Source: nursing notes reviewed Medical History Anastomotic ulcer Anxiety Asthma Borderline diabetes Depression Diabetes type 2, controlled DVT (deep venous thrombosis) Dyslipidemia GERD (gastroesophageal reflux disease) High cholesterol History of restless legs syndrome Non-toxic multinodular goiter Surgical History History of hysterectomy Hx of esophagogastroduodenoscopy Hx of hand surgery S/P gastric bypass Family History Family History Unknown No problems noted. Mother Diabetes mellitus CHF (congestive heart failure) Kidney failure Cervical cancer Brother No problems noted. Brother No problems noted. Social History Social History Are you a primary intensive care ambulance paramedic to a significant other at home: No Do you presently have visiting nurse or other home services: No Alcohol intake: unknown Patient Tobacco Use Status: Current someday Tobacco user Cigarettes Per Day: 30 Years Smoked: 30 Advance Directives: No Advance Directives Information Provided: Yes Physical Exam Vital Signs: Vital Signs: Last Vital Signs Temp 983 F H 06/14/21 01:52 Pulse 88 06/14/21 03:48 Resp 9 L 06/14/21 03:48 BP 115/68 06/14/21 03:48 Pulse Ox 98 06/14/21 03:48 BMI result Body Mass Index 27.3 VITAL SIGNS: Reviewed. GENERAL: Well developed, well nourished, in no acute distress. HEAD: Normocephalic/atraumatic EYES: PERRLA, EOMI OROPHARYNX: no oral lesions noted, posterior pharynx clear NECK: Supple, no adenopathy LUNGS: Normal breath sounds. No adventitious sounds or accessory muscle use. SpO2<95> CARDIOVASCULAR: Regular rate and rhythm without noted murmurs ABDOMEN: Soft, non-tender, non-distended with bowel sounds. MUSCULOSKELETAL: No tenderness, deformities, or effusions noted on gross inspection. EXTREMITIES: No cyanosis, clubbing or edema, left great toe with dressing intact and no surrounding erythema or induration. NEUROLOGIC: Alert and oriented x 4. Strength and sensation to light touch were grossly intact x 4. Course Course Course Narrative: 60-year-old female with history and clinical presentation suggestive of syncope and possibility seizures secondary to either be medications or some other inciting event such as hypoxia. On review of all investigations there are no acute findings as the leukocytosis and elevated glucose levels likely correlate to presence of fentanyl. On further questioning with the patient she states that she had a prescription for fentanyl which she took because she was still experiencing pain despite the prescribed pain medications that she had. She was counseled extensively on the dangers mixing fentanyl with any other medications. She is otherwise discharged home in stable condition and doubt that the seizure like activity that was witnessed was secondary to a primary source as there is no evidence of infection or electrolyte abnormalities or medication do further explain the presentation. Medical Decision Making Lab Data Result diagrams: 06/14/21 02:32 06/14/21 02:32 Labs: Lab Results 06/14/21 06/14/21 06/14/21 Range/Units 02:32 02:32 02:32 WBC 12.7 H (4.8-10.8) X10*3/uL RBC 4.47 (4.20-5.50) X10*6/uL Hgb 12.9 (12.0-16.0) g/dl Hct 39.1 (37.0-47.0) % MCV 87.5 (80.0-98.0) fL MCH 28.9 (27.0-33.0) pg MCHC 33.0 (31.0-35.0) g/dl RDW 12.8 (11.0-16.0) % Plt Count 206 (160-400) X10*3/uL MPV 9.6 (9.4-12.3) fL Immature Gran % (Auto) 0.4 (0.0-0.4) % Neut % (Auto) 79.5 H (45-73) % Lymph % (Auto) 12.7 L (20-40) % [place] % (Auto) 5.5 (2-11) % Eos % (Auto) 1.7 (0-4) % Baso % (Auto) 0.2 (0-2) % Lymph # (Auto) 1.6 (1.2-4.9) X10*3/uL [place] # (Auto) 0.7 (0.1-1.2) X10*3/uL Eos # (Auto) 0.2 (0.0-0.4) X10*3/uL Baso # (Auto) 0.0 (0.0-0.2) X10*3/uL Abs Immat Gran (auto) 0.05 H (0.00-0.03) X10*3/uL Absolute Neuts (auto) 10.1 H (2.0-8.3) x10*3/uL Absolute Nucleated RBC 0.000 (0.0-0.012) X10*3/uL Nucleated RBC % (auto) 0.0 (0.0-0.2) /100WBC Sodium 141 (135-145) mmol/L Potassium 3.4 D (3.3-5.1) mmol/L Chloride 106 (96-108) mmol/L Carbon Dioxide 27 (22-29) mmol/L Anion Gap 11 L (12-20) BUN 15 (9-16) mg/dL Creatinine 0.89 (0.5-1.4) mg/dL Estim Creat Clear Calc 64.5 Estimated GFR > 60 Random Glucose 259 H (60-115) mg/dL Calcium 8.9 (8.4-10.2) mg/dL Total Bilirubin < 0.2 (0.0-1.0) mg/dL AST 49 H (5-31) U/L ALT 31 (0-31) U/L Alkaline Phosphatase 93 (39-117) U/L Total Protein 6.4 L (6.5-8.0) g/dL Albumin 3.9 (3.5-5.0) g/dL Urine Color Urine Appearance Urine pH (5.0-8.0) Ur Specific Melvin (1.005-1.025) Urine Protein (NEG-TRACE) MG/DL Urine Glucose (UA) (NEG) MG/DL Urine Ketones (NEG) MG/DL Urine Blood (NEG) Urine Nitrite (NEG) Ur Leukocyte Esterase (NEG) Urine RBC (0) /HPF Urine WBC (0-4) /HPF Ur Squamous Epith Cells /LPF Calcium Phosphate Cryst /LPF Calcium Oxalate Crystal /LPF Urine Bacteria /LPF Urine Mucus /LPF Urine Opiates Screen (Not Detect) Urine Fentanyl Screen (Not Detect) Ur Barbiturates Screen (Not Detect) Ur Phencyclidine Scrn (Not Detect) Ur Amphetamines Screen (Not Detect) U Benzodiazepines Scrn (Not Detect) Urine Cocaine Screen (Not Detect) U Marijuana (THC) Screen (Not Detect) Ethyl Alcohol < 10 mg/dL COVID-19 ([facility]) (Negative) COVID-19 Clin Com 06/14/21 06/14/21 06/14/21 Range/Units 02:32 02:48 02:48 WBC (4.8-10.8) X10*3/uL RBC (4.20-5.50) X10*6/uL Hgb (12.0-16.0) g/dl Hct (37.0-47.0) % MCV (80.0-98.0) fL MCH (27.0-33.0) pg MCHC (31.0-35.0) g/dl RDW (11.0-16.0) % Plt Count (160-400) X10*3/uL MPV (9.4-12.3) fL Immature Gran % (Auto) (0.0-0.4) % Neut % (Auto) (45-73) % Lymph % (Auto) (20-40) % [place] % (Auto) (2-11) % Eos % (Auto) (0-4) % Baso % (Auto) (0-2) % Lymph # (Auto) (1.2-4.9) X10*3/uL [place] # (Auto) (0.1-1.2) X10*3/uL Eos # (Auto) (0.0-0.4) X10*3/uL Baso # (Auto) (0.0-0.2) X10*3/uL Abs Immat Gran (auto) (0.00-0.03) X10*3/uL Absolute Neuts (auto) (2.0-8.3) x10*3/uL Absolute Nucleated RBC (0.0-0.012) X10*3/uL Nucleated RBC % (auto) (0.0-0.2) /100WBC Sodium (135-145) mmol/L Potassium (3.3-5.1) mmol/L Chloride (96-108) mmol/L Carbon Dioxide (22-29) mmol/L Anion Gap (12-20) BUN (9-16) mg/dL Creatinine (0.5-1.4) mg/dL Estim Creat Clear Calc Estimated GFR Random Glucose (60-115) mg/dL Calcium (8.4-10.2) mg/dL Total Bilirubin (0.0-1.0) mg/dL AST (5-31) U/L ALT (0-31) U/L Alkaline Phosphatase (39-117) U/L Total Protein (6.5-8.0) g/dL Albumin (3.5-5.0) g/dL Urine Color YELLOW Urine Appearance HAZY Urine pH 6.0 (5.0-8.0) Ur Specific Melvin >= 1.030 H (1.005-1.025) Urine Protein TRACE (NEG-TRACE) MG/DL Urine Glucose (UA) >=1000 H (NEG) MG/DL Urine Ketones 5 (NEG) MG/DL Urine Blood NEG (NEG) Urine Nitrite NEG (NEG) Ur Leukocyte Esterase NEG (NEG) Urine RBC 0 (0) /HPF Urine WBC 0-2 (0-4) /HPF Ur Squamous Epith Cells 2+ /LPF Calcium Phosphate Cryst 1+ /LPF Calcium Oxalate Crystal 1+ /LPF Urine Bacteria TRACE /LPF Urine Mucus 1+ /LPF Urine Opiates Screen Not Detected (Not Detect) Urine Fentanyl Screen POSITIVE H (Not Detect) Ur Barbiturates Screen Not Detected (Not Detect) Ur Phencyclidine Scrn Not Detected (Not Detect) Ur Amphetamines Screen Not Detected (Not Detect) U Benzodiazepines Scrn Not Detected (Not Detect) Urine Cocaine Screen Not Detected (Not Detect) U Marijuana (THC) Screen Not Detected (Not Detect) Ethyl Alcohol mg/dL COVID-19 ([facility]) Negative (Negative) COVID-19 Clin Com See Note Discharge Plan Discharge Clinical Impression: Overdose Patient Disposition: Home, Self-Care Instructions: Adult Overdose (ED) Additional Instructions: 1. Resume any prescribed medications. Do not take fentanyl any more. Return to the ER for worsening symptoms. Prescriptions: No Action cholecalciferol (vitamin D3) 50 mcg (2,000 unit) capsule 50 mcg PO DAILY Qty: 30 RF: 11 oxycodone-acetaminophen 5-325 mg tablet 1 tab PO Q8H PRN (Reason: pain) Qty: 9 RF: 0 pantoprazole 40 mg tablet,delayed release (DR/EC) 40 mg PO DAILY Qty: 60 RF: 6 cyclobenzaprine 10 mg tablet 10 mg PO Q8H Qty: 20 RF: 0 tramadol 50 mg tablet 50 mg PO Q6H PRN (Reason: pain) Qty: 20 RF: 0 oxycodone 5 mg tablet 5 mg PO Q6H PRN (Reason: Pain (Scale Score 7-10)) Qty: 20 RF: 0 sertraline 50 mg Tablet 50 mg PO BEDTIME RF: 0 hydroxyzine HCl 25 mg tablet 50 mg PO BEDTIME RF: 0 hydrocodone-acetaminophen 5-325 mg tablet 1 tab PO Q4-6H PRN (Reason: pain) Qty: 10 RF: 0 clindamycin HCl 300 mg capsule 450 mg PO Q8H 7 Days Qty: 32 RF: 0 hydrocodone-acetaminophen 5-325 mg tablet 1 tab PO Q8H PRN (Reason: pain, severe) 3 Days Qty: 5 RF: 0 doxycycline hyclate 100 mg tablet 100 mg PO BID 10 Days Qty: 20 RF: 0 oxycodone 5 mg tablet 5 mg PO Q4-6H PRN (Reason: pain) Qty: 7 RF: 0 sucralfate [Carafate] 1 gram tablet 1 g PO BID Qty: 60 RF: 6 metformin 500 mg tablet extended release 24 hr 500 mg PO DAILY 30 Days Qty: 30 RF: 5 acarbose 25 mg tablet 25 mg PO TID 30 Days Qty: 90 RF: 4 hydrochlorothiazide 12.5 mg capsule 12.5 mg PO DAILY RF: 0 ondansetron HCl 4 mg tablet 4 mg PO Q8H PRN (Reason: nausea and vomiting) Qty: 60 RF: 4 ropinirole 1 mg tablet 1 mg PO BEDTIME RF: 0 Referrals: [facility] [Primary Care Provider] - 2 days
[2021-06-14 02:39] LABS: MANUAL DIFF FLAG NO
[2021-06-14 02:40] LABS: Basophils Percent Auto 0.2 % (0-2); Eosinophils Absolute Auto 0.2 X10*3/uL (0.0-0.4); Eosinophils Percent Auto 1.7 % (0-4); Hematocrit 39.1 % (37.0-47.0); Hemoglobin 12.9 g/dl (12.0-16.0); Imm Gran Abs Auto 0.05 X10*3/uL (0.00-0.03); Imm Gran Pct Auto 0.4 % (0.0-0.4); Lymphocytes Absolute Auto 1.6 X10*3/uL (1.2-4.9); Lymphocytes Percent Auto 12.7 % (20-40); Mean Corpuscular Hemoglobin 28.9 pg (27.0-33.0); Mean Corpuscular Volume 87.5 fL (80.0-98.0); Mean Platelet Volume 9.6 fL (9.4-12.3); Monocytes Absolute Auto 0.7 X10*3/uL (0.1-1.2); Monocytes Percent Auto 5.5 % (2-11); Neutrophils Absolute Auto 10.1 x10*3/uL (2.0-8.3); Neutrophils Percent Auto 79.5 % (45-73); Platelet Count 206 X10*3/uL (160-400); Red Blood Count 4.47 X10*6/uL (4.20-5.50); Red Cell Distribution Width 12.8 % (11.0-16.0); White Blood Count 12.7 X10*3/uL (4.8-10.8)
[2021-06-14 02:53] LABS: Ethanol < 10 mg/dL
[2021-06-14 02:55] LABS: COVID-19 Test Negative (Negative); IDNOW Serial# 9DD0AD1C
[2021-06-14 02:55] LABS: Appearance Urine HAZY; Color Urine YELLOW; Glucose Urine UA >=1000 MG/DL (NEG); Leukocyte Esterase Urine NEG (NEG); Nitrite Urine NEG (NEG); Specific Gravity - Urine >= 1.030 (1.005-1.025); Urine Blood NEG (NEG); Urine Ketones 5 MG/DL (NEG); Urine Protein TRACE MG/DL (NEG-TRACE)
[2021-06-14 02:57] LABS: Alanine Aminotransferase 31 U/L (0-31); Albumin Level 3.9 g/dL (3.5-5.0); Alkaline Phosphatase 93 U/L (39-117); Anion Gap 11 (12-20); Aspartate Amino Transferase 49 U/L (5-31); Bilirubin Total < 0.2 mg/dL (0.0-1.0); Blood Urea Nitrogen 15 mg/dL (9-16); Calcium 8.9 mg/dL (8.4-10.2); Carbon Dioxide 27 mmol/L (22-29); Chloride 106 mmol/L (96-108); Creatinine Clr Calc Pharmacy 64.5; Estimated Glomerular Filt Rate > 60; Glucose Random 259 mg/dL (60-115); Potassium 3.4 mmol/L (3.3-5.1); Sodium 141 mmol/L (135-145); Total Protein 6.4 g/dL (6.5-8.0)
[2021-06-14 02:57] LABS: UACC Culture Trigger NO
[2021-06-14 03:01] LABS: Bacteria Urine TRACE /LPF; Calcium Oxalate Crystals Urine 1+ /LPF; Calcium Phosphate Crystals Ur 1+ /LPF; Mucus Urine 1+ /LPF; RBC Urine 0 /HPF (0); Squamous Epithelial Cell Urine 2+ /LPF; WBC Urine 0-2 /HPF (0-4)
[2021-06-14 03:09] LABS: Amphetamine Screen Urine Not Detected (Not Detect); Barbiturates, Urine Not Detected (Not Detect); Benzodiazepines Screen Urine Not Detected (Not Detect); Cannabinoid Screen Urine Not Detected (Not Detect); Cocaine Screen Urine Not Detected (Not Detect); Fentanyl, urine POSITIVE (Not Detect); Opiate Screen Urine Not Detected (Not Detect); Phencyclidine Screen Urine Not Detected (Not Detect)
[2021-06-14 03:48] VITALS: BP 115/68; PULSE 88; RESP 9; O2SAT 98
--- NOTE | 2021-06-14 04:38 | PC.NURSE ---
I assumed care of this pt upon her arrival to bed 13 via EMS. On arrival pt was somnolent, arousable to loud verbal stimuli. Her room air sat's were 88% - up to 96% with 4L nasal cannula. Pt states she is unsure what happened, has c/o chronic back pain but no new pain from her fall. She is oriented x 3, respirations spontaneous and non-labored, no cyanosis, speaks in full sentences, RR WNL. At this time pt has been resting comfortably in bed with son at bedside and at this time she is discharged. FOr the past one hour her room air sats have maintained 95% or better.
[2021-06-14] MEDS: Naloxone HCl Nasal TAKE HOME 4 MG SPRAY NOSTRILALT (05:02)
== END 2021-06-14 05:07 | disposition home or self-care (01) ==
PROVIDERS: Emergency Provider Student in an Organized Health Care Education/Training Program
DX: T50.911A Poisoning by multiple unspecified drugs, medicaments and biological substances, accidental (unintentional), initial encounter (principal); R56.9 Unspecified convulsions; Y92.009 Unspecified place in unspecified non-institutional (private) residence as the place of occurrence of the external cause; F17.200 Nicotine dependence, unspecified, uncomplicated; E11.9 Type 2 diabetes mellitus without complications; Z86.718 Personal history of other venous thrombosis and embolism; Z20.822 Contact with and (suspected) exposure to COVID-19
CPT/HCPCS: 36415; 80053; 80307; 81001; 82077; 85025; 87635; 99284

== ENCOUNTER → 2021-06-17 08:43 | Outpatient (BNVA) | payer MEDICAID, SELFPAY | PROVIDERS: Visit Provider Orthopaedic Surgery | DX: M25.642 Stiffness of left hand, not elsewhere classified (principal) | CPT/HCPCS: 99212 ==

== ENCOUNTER 2021-06-21 09:28 | Emergency (ER) | payer MEDICAID, SELFPAY ==
--- NOTE | ~2021-06-21 | XR_ITS ---
EXAMINATION: XR CHEST CLINICAL INFORMATION: Cough and SOB COMPARISON: None TECHNIQUE: Frontal view of the chest was obtained. FINDINGS: No significant abnormality is noted involving the heart, lungs, mediastinum, bony thorax or soft tissues. XR/XR chest 1V IMPRESSION: Unremarkable chest examination.
[2021-06-21 09:43] VITALS: BP 128/62; PULSE 94; RESP 17; TEMP 36.6; O2SAT 100; BMI 27.3
[2021-06-21 10:13] LABS: IDNOW Serial# 9DD0AD1C
[2021-06-21 10:14] LABS: Strep A Nucleic Acid Negative (Negative)
[2021-06-21 10:17] LABS: COVID-19 Test Negative (Negative)
[2021-06-21 10:37] LABS: Influenza A PCR NEGATIVE (Negative); Influenza B PCR NEGATIVE (Negative); Resp Syncy Virus RNA Qual PCR NEGATIVE (Negative); SARS COV2 PCR INHOUSE NEGATIVE (Negative)
--- NOTE | 2021-06-21 11:11 | ED_ITS ---
HPI - URI/Sore Throat General Chief Complaint: Upper Respiratory Symptoms Stated Complaint: SORE THROAT FEVER COUGH Time Seen by Provider: 06/21/21 10:14 Source: patient Mode of arrival: ambulatory History of Present Illness HPI Narrative: 60-year-old female with a past medical history of anxiety, asthma, depression, diabetes, dyslipidemia, GERD, restless leg syndrome, presenting to the ED complaining of productive cough of green/yellow phlegm, rhinorrhea/nasal congestion, sore throat, myalgias, mild SOB x1 week. Reports went to urgent care on Tuesday tested negative for COVID-19/the flu however symptoms persist/worsening now. Denies recent travel, known COVID-19 exposure, pedal edema, abdominal pain, nausea/vomiting MD elicited complaint: cough, sore throat, rhinorrhea and nasal congestion Related Data Home Medications Medication Instructions Recorded Confirmed sertraline 50 mg tablet 50 mg PO BEDTIME 04/24/20 12/31/20 hydrochlorothiazide 12.5 mg capsule 12.5 mg PO DAILY 05/09/20 12/31/20 hydroxyzine HCl 25 mg tablet 50 mg PO BEDTIME tab 06/04/20 12/31/20 ropinirole 1 mg tablet 1 mg PO BEDTIME 10/28/20 12/31/20 Previous Rx's Medication Instructions Recorded ondansetron HCl 4 mg tablet 4 mg PO Q8H PRN #60 tab 05/09/20 sucralfate 1 gram tablet (Carafate) 1 g PO BID #60 tab 06/04/20 cholecalciferol (vitamin D3) 50 50 mcg PO DAILY #30 cap 12/15/20 mcg (2,000 unit) capsule acarbose 25 mg tablet 25 mg PO TID 30 Days #90 tab 12/31/20 metformin 500 mg tablet,extended 500 mg PO DAILY 30 Days #30 tab 12/31/20 release 24 hr oxycodone-acetaminophen 5 mg-325 1 tab PO Q8H PRN #9 tab 01/19/21 mg tablet cyclobenzaprine 10 mg tablet 10 mg PO Q8H #20 tab 03/01/21 tramadol 50 mg tablet 50 mg PO Q6H PRN #20 tab 03/01/21 oxycodone 5 mg tablet 5 mg PO Q6H PRN #20 tab 03/10/21 hydrocodone 5 mg-acetaminophen 325 1 tab PO Q8H PRN 3 Days #5 tab 03/22/21 mg tablet pantoprazole 40 mg tablet,delayed 40 mg PO DAILY #60 tab 04/06/21 release oxycodone 5 mg tablet 5 mg PO Q4-6H PRN #7 tab 04/09/21 albuterol sulfate 90 mcg/actuation 2 puff INHALATION Q4-6H PRN #6.7 g 06/21/21 aerosol inhaler azithromycin 250 mg tablet See Rx Instructions .ROUTE 06/21/21 .COMPLEX #6 tab benzonatate 200 mg capsule 200 mg PO TID PRN #20 cap 06/21/21 fluticasone propionate 50 2 spray INTRANASAL DAILY #16 g 06/21/21 mcg/actuation nasal spray,suspension (Flonase Allergy Relief) Allergies Allergy/AdvReac Type Severity Reaction Status Date / Time Penicillins Allergy Intermediate HIVES Verified 06/17/21 08:57 sulfamethoxazole Allergy Intermediate BLISTERS- Verified 06/17/21 08:57 [From BACTRIM] DELGADO - NERVE ENDINGS IN HAND/ERYTHEMA MULTIFORM trimethoprim [From BACTRIM] Allergy Intermediate BLISTERS- Verified 06/17/21 08:57 DELGADO - NERVE ENDINGS IN HAND/ERYTHEMA MULTIFORM latex [Latex] Allergy Mild RASH Verified 06/17/21 08:57 theophylline AdvReac Intermediate TACHYCARDIA Verified 06/17/21 08:57 TEGADERM Allergy Intermediate SKIN TEARS Uncoded 02/06/21 14:57 From COMPAZINE AdvReac Severe SEIZURES Uncoded 02/06/21 14:57 Review of Systems Review of Systems: Constitutional: No Fever, No Chills ENT/Mouth: No Ear Pain, + Nasal Congestion, No Sinus Pain, + Hoarseness, + sore throat, + Rhinorrhea, No Swallowing Difficulty Cardiovascular: No Chest Pain, + SOB Respiratory: + Cough, + Sputum, No Wheezing Gastrointestinal: No Nausea, No Vomiting, No Diarrhea, No Constipation, No Abdominal pain Genitourinary: No Dysuria, No Urinary Frequency, No Flank Pain Musculoskeletal: No joint pain, No Myalgias Skin: No Skin Lesions, No rash Neuro: No Weakness, No Numbness, No Paresthesias Yes all other systems are reviewed and are negative PMFSH Past Medical History Attestation statement: The following information was validated with the patient. Medical History Anastomotic ulcer Anxiety Asthma Borderline diabetes Depression Diabetes type 2, controlled DVT (deep venous thrombosis) Dyslipidemia GERD (gastroesophageal reflux disease) High cholesterol History of restless legs syndrome Non-toxic multinodular goiter Surgical History History of hysterectomy Hx of esophagogastroduodenoscopy Hx of hand surgery S/P gastric bypass Family History Family History Unknown No problems noted. Mother Diabetes mellitus CHF (congestive heart failure) Kidney failure Cervical cancer Brother No problems noted. Brother No problems noted. Social History Social History Are you a primary pharmacy customer care specialist to a significant other at home: No Do you presently have visiting nurse or other home services: No Alcohol intake: never Patient Tobacco Use Status: Current someday Tobacco user Cigarettes Per Day: 30 Years Smoked: 30 Advance Directives: Yes Advance Directives Information Provided: Yes Advance Directives on File: No Physical Exam Vital Signs: Vital Signs: Last Vital Signs Temp 98 F 06/21/21 09:43 Pulse 94 06/21/21 09:43 Resp 17 06/21/21 09:43 BP 128/62 06/21/21 09:43 Pulse Ox 100 06/21/21 09:43 BMI result Body Mass Index 27.3 Const: General: cooperative, healthy appearing and no acute distress Orientation/consciousness: patient oriented x3 Limitations: no limitations HENMT: Head: Yes normal to inspection and Yes atraumatic Ears: hearing grossly normal bilaterally, external ears normal, TM's normal bilaterally and mastoids normal General nose exam: Normal external nose present Face and sinus: Yes normal facial exam Mouth: Normal oral and palatal mucosa present Throat: Yes tonsils normal, Yes uvula midline, No abnormal tonsil, No peritonsillar mass, Yes posterior oropharynx abnormal (Mild posterior oropharyngeal erythema) and No uvular edema Eyes: General: appearance normal, both eyes and all related structures EOM: EOMs intact bilaterally Neck: Neck: Yes normal visual inspection, Yes no lymphadenopathy, Yes no meningeal signs and Yes supple Resp: Effort & Inspection: normal respiratory effort Auscultation: clear to auscultation bilaterally, no rales, no rhonchi and no wheezes Cardio: Rate: regular rate Heart sounds: S1 normal heart sound present and S2 normal heart sound present Skin: Rashes: no rashes Wounds: no wounds Neuro: General: patient oriented x3 and no meningeal signs Gait exam (Neuro): Normal gait present Extrem: General: Yes normal to inspection, Yes no pedal edema and Yes no calf tenderness Course Course Course Narrative: -COVID-19/influenza/RSV negative. -rapid strep negative XR chest 1V IMPRESSION: Unremarkable chest examination. ? >> results discussed with patient including worrisome signs and symptoms. Will DC with Zithromax, Tessalon Perles, Flonase, and albuterol inhaler MDM - URI/Sore Throat MDM Narrative Medical decision making narrative: 60-year-old female with a past medical history of anxiety, asthma, depression, diabetes, dyslipidemia, GERD, restless leg syndrome, presenting to the ED complaining of productive cough of green/yellow phlegm, rhinorrhea/nasal congestion, sore throat, myalgias, mild SOB x1 week. On exam vital signs stable, NAD/nontoxic, physical exam as above. Concern for viral syndromes COVID-19 return Nancy. Rule out pneumonia. Symptoms atypical for ACS/PE Plan: CXR, COVID 19/influenza/RSV testing. Differential Diagnosis Differential diagnosis: Likely upper respiratory infection, sinusitis, viral infection, bronchitis and pharyngitis Medical Records Attestation: I reviewed the patient's medical records. Lab Data Attestation: I reviewed the patient's lab results. Labs: Lab Results 06/21/21 06/21/21 06/21/21 Range/Units 09:48 09:48 09:52 COVID-19 ([facility]) Negative (Negative) COVID-19 Clin Com See Note Influenza Type A (PCR) NEGATIVE (Negative) Influenza Type B (PCR) NEGATIVE (Negative) RSV RNA Qual (PCR) NEGATIVE (Negative) SARS-CoV-2 RNA (RT-PCR) NEGATIVE (Negative) S. pyogenes GrpA ASHA Negative (Negative) Discharge Plan Discharge Clinical Impression: URI (upper respiratory infection) Qualifiers: URI type: unspecified URI Qualified Code(s): J06.9 - Acute upper respiratory infection, unspecified Patient Disposition: Home, Self-Care Instructions: Upper Respiratory Infection (ED) Additional Instructions: You tested negative for COVID-19, flu, RSV, and strep throat Her chest x-ray is unremarkable Zithromax as an antibiotic take as prescribed Maria Guadalupe Kahn for cough Use albuterol inhaler In addition Flonase as a nasal decongestion Rest, stay hydrated, take Tylenol and Motrin as needed. If symptoms persist or worsen, you develop fevers unresolved with medications, please return to the ED Prescriptions: New azithromycin 250 mg tablet See Rx Instructions .ROUTE .COMPLEX Qty: 6 RF: 0 benzonatate 200 mg capsule 200 mg PO TID PRN (Reason: cough) Qty: 20 RF: 0 albuterol sulfate 90 mcg/actuation HFA aerosol inhaler 2 puff inhalation Q4-6H PRN (Reason: shortness of breath or wheezing) Qty: 6.7 RF: 0 fluticasone propionate [Flonase Allergy Relief] 50 mcg/actuation spray,suspension 2 spray intranasal DAILY Qty: 16 RF: 0 No Action cholecalciferol (vitamin D3) 50 mcg (2,000 unit) capsule 50 mcg PO DAILY Qty: 30 RF: 11 oxycodone-acetaminophen 5-325 mg tablet 1 tab PO Q8H PRN (Reason: pain) Qty: 9 RF: 0 pantoprazole 40 mg tablet,delayed release (DR/EC) 40 mg PO DAILY Qty: 60 RF: 6 cyclobenzaprine 10 mg tablet 10 mg PO Q8H Qty: 20 RF: 0 tramadol 50 mg tablet 50 mg PO Q6H PRN (Reason: pain) Qty: 20 RF: 0 oxycodone 5 mg tablet 5 mg PO Q6H PRN (Reason: Pain (Scale Score 7-10)) Qty: 20 RF: 0 sertraline 50 mg Tablet 50 mg PO BEDTIME RF: 0 hydroxyzine HCl 25 mg tablet 50 mg PO BEDTIME RF: 0 hydrocodone-acetaminophen 5-325 mg tablet 1 tab PO Q8H PRN (Reason: pain, severe) 3 Days Qty: 5 RF: 0 oxycodone 5 mg tablet 5 mg PO Q4-6H PRN (Reason: pain) Qty: 7 RF: 0 sucralfate [Carafate] 1 gram tablet 1 g PO BID Qty: 60 RF: 6 metformin 500 mg tablet extended release 24 hr 500 mg PO DAILY 30 Days Qty: 30 RF: 5 acarbose 25 mg tablet 25 mg PO TID 30 Days Qty: 90 RF: 4 hydrochlorothiazide 12.5 mg capsule 12.5 mg PO DAILY RF: 0 ondansetron HCl 4 mg tablet 4 mg PO Q8H PRN (Reason: nausea and vomiting) Qty: 60 RF: 4 ropinirole 1 mg tablet 1 mg PO BEDTIME RF: 0 Referrals: Joyce Tapia MD [Primary Care Provider] - 5 days
== END 2021-06-21 11:27 | disposition home or self-care (01) ==
PROVIDERS: Emergency Provider Emergency Medicine; PCP Student in an Organized Health Care Education/Training Program
DX: J06.9 Acute upper respiratory infection, unspecified (principal); Z20.822 Contact with and (suspected) exposure to COVID-19; J02.9 Acute pharyngitis, unspecified; E11.9 Type 2 diabetes mellitus without complications; F17.200 Nicotine dependence, unspecified, uncomplicated; Z86.718 Personal history of other venous thrombosis and embolism; Z79.899 Other long term (current) drug therapy
CPT/HCPCS: 0241U; 36415; 71045; 87635; 87651; 99283

== ENCOUNTER 2021-07-17 16:31 | Emergency (ER) | payer MEDICAID, SELFPAY ==
[2021-07-17 16:47] VITALS: BP 170/80; PULSE 91; RESP 22; O2SAT 98; BMI 26.4
[2021-07-17] MEDS: Lidocaine HCl 2%/Epi 1:100,000 20 ML VIAL INFILTRATI (18:23)
[2021-07-17] MEDS: Lidocaine HCl 2 % MPF 5 ML VIAL INFILTRATI (18:23)
[2021-07-17] MEDS: Silver Nitrate Applicator STICK..EA. 1 APPL TOPICAL (18:23)
--- NOTE | 2021-07-17 18:23 | ED_ITS ---
HPI - Extremity Problem General Chief complaint: Extremity Problem Stated complaint: rt foot dsg unable to remove,,toenail removed Time Seen by Provider: 07/17/21 17:17 Source: patient Mode of arrival: ambulatory History of Present Illness HPI Narrative: 60-year-old female with a past medical history of anxiety, asthma, DM, HLD, GERD, restless leg syndrome, presenting to the ED complaining of inability to get dressing off right toe s/p toenail removal yesterday. Reports toenail has been black in due to diabetes had removed yesterday. Reports tried to change dressing however stuck, tried soaking at home without resolution. Denies fever, chills, numbness/tingling MD Complaint: extremity pain Onset (ago): day(s) Pain Consistency: constant Related Data Home Medications Medication Instructions Recorded Confirmed sertraline 50 mg tablet 50 mg PO BEDTIME 04/24/20 12/31/20 hydrochlorothiazide 12.5 mg capsule 12.5 mg PO DAILY 05/09/20 12/31/20 hydroxyzine HCl 25 mg tablet 50 mg PO BEDTIME tab 06/04/20 12/31/20 ropinirole 1 mg tablet 1 mg PO BEDTIME 10/28/20 12/31/20 Previous Rx's Medication Instructions Recorded ondansetron HCl 4 mg tablet 4 mg PO Q8H PRN #60 tab 05/09/20 sucralfate 1 gram tablet (Carafate) 1 g PO BID #60 tab 06/04/20 cholecalciferol (vitamin D3) 50 50 mcg PO DAILY #30 cap 12/15/20 mcg (2,000 unit) capsule acarbose 25 mg tablet 25 mg PO TID 30 Days #90 tab 12/31/20 metformin 500 mg tablet,extended 500 mg PO DAILY 30 Days #30 tab 12/31/20 release 24 hr oxycodone-acetaminophen 5 mg-325 1 tab PO Q8H PRN #9 tab 01/19/21 mg tablet cyclobenzaprine 10 mg tablet 10 mg PO Q8H #20 tab 03/01/21 tramadol 50 mg tablet 50 mg PO Q6H PRN #20 tab 03/01/21 oxycodone 5 mg tablet 5 mg PO Q6H PRN #20 tab 03/10/21 hydrocodone 5 mg-acetaminophen 325 1 tab PO Q8H PRN 3 Days #5 tab 03/22/21 mg tablet pantoprazole 40 mg tablet,delayed 40 mg PO DAILY #60 tab 04/06/21 release oxycodone 5 mg tablet 5 mg PO Q4-6H PRN #7 tab 04/09/21 albuterol sulfate 90 mcg/actuation 2 puff INHALATION Q4-6H PRN #6.7 g 06/21/21 aerosol inhaler azithromycin 250 mg tablet See Rx Instructions .ROUTE 06/21/21 .COMPLEX #6 tab benzonatate 200 mg capsule 200 mg PO TID PRN #20 cap 06/21/21 fluticasone propionate 50 2 spray INTRANASAL DAILY #16 g 06/21/21 mcg/actuation nasal spray,suspension (Flonase Allergy Relief) hydrocodone 5 mg-acetaminophen 325 1 tab PO Q8H PRN 3 Days #3 tab 07/17/21 mg tablet Allergies Allergy/AdvReac Type Severity Reaction Status Date / Time Penicillins Allergy Intermediate HIVES Verified 06/17/21 08:57 sulfamethoxazole Allergy Intermediate BLISTERS- Verified 06/17/21 08:57 [From BACTRIM] DELGADO - NERVE ENDINGS IN HAND/ERYTHEMA MULTIFORM trimethoprim [From BACTRIM] Allergy Intermediate BLISTERS- Verified 06/17/21 08:57 DELGADO - NERVE ENDINGS IN HAND/ERYTHEMA MULTIFORM latex [Latex] Allergy Mild RASH Verified 06/17/21 08:57 theophylline AdvReac Intermediate TACHYCARDIA Verified 06/17/21 08:57 TEGADERM Allergy Intermediate SKIN TEARS Uncoded 02/06/21 14:57 From COMPAZINE AdvReac Severe SEIZURES Uncoded 02/06/21 14:57 Review of Systems Review of Systems: Constitutional: No Fever, No Chills ENT/Mouth: No Ear Pain, No Nasal Congestion, No sore throat, No Rhinorrhea, No S wallowing Difficulty Cardiovascular: No Chest Pain, No SOB Respiratory: No Cough Gastrointestinal: No Nausea, No Vomiting, No Abdominal pain Musculoskeletal: No joint pain, No Myalgias, No Joint Swelling Skin: + Skin Lesions, No rash Neuro: No Weakness, No Numbness, No Paresthesias Yes all other systems are reviewed and are negative PMFSH Past Medical History Attestation statement: The following information was validated with the patient. Medical History Anastomotic ulcer Anxiety Asthma Borderline diabetes Depression Diabetes type 2, controlled DVT (deep venous thrombosis) Dyslipidemia GERD (gastroesophageal reflux disease) High cholesterol History of restless legs syndrome Non-toxic multinodular goiter Surgical History History of hysterectomy Hx of esophagogastroduodenoscopy Hx of hand surgery S/P gastric bypass Family History Family History Unknown No problems noted. Mother Diabetes mellitus CHF (congestive heart failure) Kidney failure Cervical cancer Brother No problems noted. Brother No problems noted. Social History Social History Are you a primary patient care coordinator to a significant other at home: No Do you presently have visiting nurse or other home services: No Alcohol intake: never Patient Tobacco Use Status: Current someday Tobacco user Cigarettes Per Day: 30 Years Smoked: 30 Advance Directives: No Advance Directives Information Provided: No Patient : No Physical Exam Vital Signs: Vital Signs: Last Vital Signs Pulse 91 07/17/21 16:47 Resp 22 H 07/17/21 16:47 BP 170/80 H 07/17/21 16:47 Pulse Ox 98 07/17/21 16:47 BMI result Body Mass Index 26.4 Const: Other: In pain General: cooperative and healthy appearing Orientation/consciousness: patient oriented x3 Limitations: no limitations HENMT: Head: Yes normal to inspection Ears: hearing grossly normal bilaterally General nose exam: Normal external nose present Face and sinus: Yes normal facial exam Eyes: General: appearance normal, both eyes and all related structures EOM: EOMs intact bilaterally Neck: Neck: Yes normal visual inspection and Yes no meningeal signs Resp: Effort & Inspection: normal respiratory effort and no respiratory distress Cardio: Rate: regular rate Peripheral pulses: dorsalis pedis present Skin: Rashes: no rashes Neuro: General: patient oriented x3 and no meningeal signs Gait exam (Neuro): Normal gait present Extrem: Other: Dressing intact to right great toe, removed after soaking with normal saline and peroxide. Nailbed with active bleeding. Bleeding controlled spontaneously & soaked with lidocaine/epi. No cellulitis/drainage or streaking MDM - Extremity (Nontraumatic) MDM Narrative Medical decision making narrative: 60-year-old female with a past medical history of anxiety, asthma, DM, HLD, GERD, restless leg syndrome, presenting to the ED complaining of inability to get dressing off right toe s/p toenail removal yesterday. On exam patient appears in pain, tachypneic from pain, physical exam as above. No evidence of infection at this time Dressing removed after excessive soaking with normal saline and peroxide. Active bleeding controlled after soaking in lidocaine with epi and using silver nitrate Xeroform and nonstick dressing applied Medical Records Attestation: I reviewed the patient's medical records. Lab Data Attestation: I reviewed the patient's lab results. Discharge Plan Discharge Clinical Impression: Dressing change, Bleeding from wound Patient Disposition: Home, Self-Care Instructions: Acute Wounds (ED) Additional Instructions: Your wound dressing was changed today in the emergency department, change dressing daily A very begins to look infected, is red, there is drainage, you fever or pain is unbearable please return to the emergency department [place] is an opiate pain medication for when pain is severe only for the next 3 days. Take with food. Do not drive, drink alcohol, or operate machinery while to Prescriptions: New hydrocodone-acetaminophen 5-325 mg tablet 1 tab PO Q8H PRN (Reason: pain, severe) 3 Days Qty: 3 RF: 0 No Action cholecalciferol (vitamin D3) 50 mcg (2,000 unit) capsule 50 mcg PO DAILY Qty: 30 RF: 11 oxycodone-acetaminophen 5-325 mg tablet 1 tab PO Q8H PRN (Reason: pain) Qty: 9 RF: 0 pantoprazole 40 mg tablet,delayed release (DR/EC) 40 mg PO DAILY Qty: 60 RF: 6 cyclobenzaprine 10 mg tablet 10 mg PO Q8H Qty: 20 RF: 0 tramadol 50 mg tablet 50 mg PO Q6H PRN (Reason: pain) Qty: 20 RF: 0 oxycodone 5 mg tablet 5 mg PO Q6H PRN (Reason: Pain (Scale Score 7-10)) Qty: 20 RF: 0 sertraline 50 mg Tablet 50 mg PO BEDTIME RF: 0 hydroxyzine HCl 25 mg tablet 50 mg PO BEDTIME RF: 0 hydrocodone-acetaminophen 5-325 mg tablet 1 tab PO Q8H PRN (Reason: pain, severe) 3 Days Qty: 5 RF: 0 oxycodone 5 mg tablet 5 mg PO Q4-6H PRN (Reason: pain) Qty: 7 RF: 0 azithromycin 250 mg tablet See Rx Instructions .ROUTE .COMPLEX Qty: 6 RF: 0 benzonatate 200 mg capsule 200 mg PO TID PRN (Reason: cough) Qty: 20 RF: 0 albuterol sulfate 90 mcg/actuation HFA aerosol inhaler 2 puff inhalation Q4-6H PRN (Reason: shortness of breath or wheezing) Qty: 6.7 RF: 0 fluticasone propionate [Flonase Allergy Relief] 50 mcg/actuation spray,suspension 2 spray intranasal DAILY Qty: 16 RF: 0 sucralfate [Carafate] 1 gram tablet 1 g PO BID Qty: 60 RF: 6 metformin 500 mg tablet extended release 24 hr 500 mg PO DAILY 30 Days Qty: 30 RF: 5 acarbose 25 mg tablet 25 mg PO TID 30 Days Qty: 90 RF: 4 hydrochlorothiazide 12.5 mg capsule 12.5 mg PO DAILY RF: 0 ondansetron HCl 4 mg tablet 4 mg PO Q8H PRN (Reason: nausea and vomiting) Qty: 60 RF: 4 ropinirole 1 mg tablet 1 mg PO BEDTIME RF: 0 Referrals: Joyce Tapia MD [Primary Care Provider] - 2 days
[2021-07-17] MEDS: oxyCODONE HCl Immed Release 5 MG TABLET PO (18:54)
== END 2021-07-17 18:59 | disposition home or self-care (01) ==
PROVIDERS: Emergency Provider Internal Medicine; PCP Student in an Organized Health Care Education/Training Program
DX: M79.674 Pain in right toe(s) (principal); F17.210 Nicotine dependence, cigarettes, uncomplicated; Z48.00 Encounter for change or removal of nonsurgical wound dressing; Z71.6 Tobacco abuse counseling; Z79.899 Other long term (current) drug therapy; Z98.84 Bariatric surgery status
CPT/HCPCS: 99284

== ENCOUNTER 2021-07-25 13:27 | Emergency (ER) | payer MEDICAID, SELFPAY ==
[2021-07-25 14:18] VITALS: BP 128/72; PULSE 75; RESP 19; TEMP 36.6; O2SAT 100; BMI 26.4
[2021-07-25 16:26] LABS: COVID-19 Test Negative (Negative); IDNOW Serial# 9DD0AD1C
--- NOTE | 2021-07-25 16:31 | ED.URI ---
HPI - URI/Sore Throat General Chief Complaint: Upper Respiratory Symptoms Stated Complaint: Covid symptoms Time Seen by Provider: 07/25/21 16:16 Source: patient Mode of arrival: ambulatory Limitations: no limitations History of Present Illness HPI Narrative: 60-year-old female here with reports of loss of taste, bilateral ear pain, sore throat, cough for 2 days. Patient tells me she was exposed to COVID from a co-worker. She has received COVID vaccine x3 (moderna). No fevers, chills, vomiting, diarrhea, chest pain or abdominal pain. Related Data Home Medications Medication Instructions Recorded Confirmed sertraline 50 mg tablet 50 mg PO BEDTIME 04/24/20 12/31/20 hydrochlorothiazide 12.5 mg capsule 12.5 mg PO DAILY 05/09/20 12/31/20 hydroxyzine HCl 25 mg tablet 50 mg PO BEDTIME tab 06/04/20 12/31/20 ropinirole 1 mg tablet 1 mg PO BEDTIME 10/28/20 12/31/20 Previous Rx's Medication Instructions Recorded ondansetron HCl 4 mg tablet 4 mg PO Q8H PRN #60 tab 05/09/20 sucralfate 1 gram tablet (Carafate) 1 g PO BID #60 tab 06/04/20 cholecalciferol (vitamin D3) 50 50 mcg PO DAILY #30 cap 12/15/20 mcg (2,000 unit) capsule acarbose 25 mg tablet 25 mg PO TID 30 Days #90 tab 12/31/20 metformin 500 mg tablet,extended 500 mg PO DAILY 30 Days #30 tab 12/31/20 release 24 hr oxycodone-acetaminophen 5 mg-325 1 tab PO Q8H PRN #9 tab 01/19/21 mg tablet cyclobenzaprine 10 mg tablet 10 mg PO Q8H #20 tab 03/01/21 tramadol 50 mg tablet 50 mg PO Q6H PRN #20 tab 03/01/21 oxycodone 5 mg tablet 5 mg PO Q6H PRN #20 tab 03/10/21 hydrocodone 5 mg-acetaminophen 325 1 tab PO Q8H PRN 3 Days #5 tab 03/22/21 mg tablet pantoprazole 40 mg tablet,delayed 40 mg PO DAILY #60 tab 04/06/21 release oxycodone 5 mg tablet 5 mg PO Q4-6H PRN #7 tab 04/09/21 albuterol sulfate 90 mcg/actuation 2 puff INHALATION Q4-6H PRN #6.7 g 06/21/21 aerosol inhaler azithromycin 250 mg tablet See Rx Instructions .ROUTE 06/21/21 .COMPLEX #6 tab benzonatate 200 mg capsule 200 mg PO TID PRN #20 cap 06/21/21 fluticasone propionate 50 2 spray INTRANASAL DAILY #16 g 06/21/21 mcg/actuation nasal spray,suspension (Flonase Allergy Relief) hydrocodone 5 mg-acetaminophen 325 1 tab PO Q8H PRN 3 Days #3 tab 07/17/ mg tablet Allergies Allergy/AdvReac Type Severity Reaction Status Date / Time Penicillins Allergy Intermediate HIVES Verified 06/17/21 08:57 sulfamethoxazole Allergy Intermediate BLISTERS- Verified 06/17/21 08:57 [From BACTRIM] DELGADO - NERVE ENDINGS IN HAND/ERYTHEMA MULTIFORM trimethoprim [From BACTRIM] Allergy Intermediate BLISTERS- Verified 06/17/21 08:57 DELGADO - NERVE ENDINGS IN HAND/ERYTHEMA MULTIFORM latex [Latex] Allergy Mild RASH Verified 06/17/21 08:57 theophylline AdvReac Intermediate TACHYCARDIA Verified 06/17/21 08:57 TEGADERM Allergy Intermediate SKIN TEARS Uncoded 02/06/21 14:57 From COMPAZINE AdvReac Severe SEIZURES Uncoded 02/06/21 14:57 Review of Systems Review of Systems: Yes all other systems are reviewed and are negative Constitutional: Constitutional: Reports no additional constitutional complaints, Denies body ache(s), Denies chills, Denies fever(s), Denies headache(s) and Denies weakness Eyes: Eyes: Reports no additional eye complaints and Denies change in vision ENT: Reports system reviewed and no additional complaints, except as documented, Denies dizziness, Reports otalgia, Denies headache(s), Denies nasal congestion, Denies nasal discharge, Denies neck pain and Reports sore throat Cardiovascular: Cardiovascular: Reports no additional cardiovascular complaints, Denies chest pain, Denies leg edema and Denies dyspnea Respiratory: Respiratory: Reports no additional respiratory complaints, Reports cough and Denies dyspnea Gastrointestinal: Gastrointestinal: Reports no additional gastrointestinal complaints, Denies abdominal pain, Denies diarrhea, Denies nausea and Denies vomiting Genitourinary: Genitourinary: Reports no additional female genitourinary complaints and Denies urinary incontinence Musculoskeletal: Musculoskeletal: Reports no additional musculoskeletal complaints, Denies back pain, Denies arthralgias, Denies joint swelling, Denies neck pain, Denies numbness and Denies tingling Integumentary/Breasts: Skin/Breast: Reports system reviewed and no additional complaints, except as docu and Denies rash Neurologic: Reports system reviewed and no additional complaints, except as documented, Denies Abnormal speech present, Denies dizziness, Denies headache(s), Denies numbness, Denies tingling and Denies weakness [facility] Past Medical History Attestation statement: The following information was validated with the patient. Source: old records reviewed and nursing notes reviewed Medical History Anastomotic ulcer Anxiety Asthma Borderline diabetes Depression Diabetes type 2, controlled DVT (deep venous thrombosis) Dyslipidemia GERD (gastroesophageal reflux disease) High cholesterol History of restless legs syndrome Non-toxic multinodular goiter Surgical History History of hysterectomy Hx of esophagogastroduodenoscopy Hx of hand surgery S/P gastric bypass Family History Family History Unknown No problems noted. Mother Diabetes mellitus CHF (congestive heart failure) Kidney failure Cervical cancer Brother No problems noted. Brother No problems noted. Social History Social History Are you a primary healthcare administrative assistant to a significant other at home: No Do you presently have visiting nurse or other home services: No Alcohol intake: never Patient Tobacco Use Status: Current someday Tobacco user Cigarettes Per Day: 30 Years Smoked: 30 Advance Directives: No Advance Directives Information Provided: No Physical Exam Vital Signs: Vital Signs: Last Vital Signs Temp 98 F 07/25/21 14:18 Pulse 75 07/25/21 14:18 Resp 19 07/25/21 14:18 BP 128/72 07/25/21 14:18 Pulse Ox 100 07/25/21 14:18 BMI result Body Mass Index 26.4 Const: General: cooperative, healthy appearing, comfortable and no acute distress Orientation/consciousness: patient oriented x3 Limitations: no limitations HENMT: Head: Yes normal to inspection Ears: hearing grossly normal bilaterally and TM's normal bilaterally General nose exam: Normal external nose present Face and sinus: Yes normal facial exam Mouth: Normal oral and palatal mucosa present Throat: Yes posterior oropharynx normal, Yes tonsils normal and Yes uvula midline Eyes: General: appearance normal, both eyes and all related structures Pupils: Equal, round and reactive pupils present Neck: Neck: Yes normal visual inspection, Yes full ROM, Yes no lymphadenopathy and Yes no meningeal signs Chest: Chest palpation & inspection: normal inspection of the chest Resp: Effort & Inspection: normal respiratory effort Auscultation: clear to auscultation bilaterally Cardio: Rate: regular rate Rhythm: regular rhythm Peripheral pulses: Peripheral pulses 2+ throughout GI: Inspection: Yes normal to inspection Palpation (GI): Soft to palpation and nontender Auscultation: normal bowel sounds Back/Spine/Pelvis: Thoracic/Lumbar Spine: thoracic and lumbar spine normal to inspection Skin: General skin exam: no rashes or lesions noted Neuro: General: patient oriented x3, no meningeal signs, no focal motor deficits and normal sensation to monofilament Cranial nerves: Yes Equal, round and reactive pupils present Cognition (Neuro): normal cognition Speech: No Abnormal speech present Gait exam (Neuro): Normal gait present Motor exam (neuro): 5/5 motor strength present throughout Extrem: General: Yes normal to inspection Course Course Course Narrative: 60-year-old female here with reports of loss of taste, earache, sore throat, cough for 2 days with COVID exposure at work Vitals are stable Exam is benign Rapid COVID is negative. I explained the patient she should retest in 48 hours for persistent symptoms. She should quarantine in the meantime. Reviewed worrisome signs and symptoms of when to return to the emergency department. Comfortable discharge home. MDM - URI/Sore Throat Medical Records Attestation: I reviewed the patient's medical records. Lab Data Attestation: I reviewed the patient's lab results. Labs: Lab Results 07/25/21 Range/Units 15:54 COVID-19 ([facility]) Negative (Negative) COVID-19 Clin Com See Note Discharge Plan Discharge Clinical Impression: Viral infection Patient Disposition: Home, Self-Care Instructions: Viral Syndrome (ED) Additional Instructions: Re-test in 48 hours for persistent symptoms Covid test is negative here Increase fluids, rest Motrin or tylenol for pain or fever Prescriptions: No Action cholecalciferol (vitamin D3) 50 mcg (2,000 unit) capsule 50 mcg PO DAILY Qty: 30 RF: 11 oxycodone-acetaminophen 5-325 mg tablet 1 tab PO Q8H PRN (Reason: pain) Qty: 9 RF: 0 pantoprazole 40 mg tablet,delayed release (DR/EC) 40 mg PO DAILY Qty: 60 RF: 6 cyclobenzaprine 10 mg tablet 10 mg PO Q8H Qty: 20 RF: 0 tramadol 50 mg tablet 50 mg PO Q6H PRN (Reason: pain) Qty: 20 RF: 0 oxycodone 5 mg tablet 5 mg PO Q6H PRN (Reason: Pain (Scale Score 7-10)) Qty: 20 RF: 0 sertraline 50 mg Tablet 50 mg PO BEDTIME RF: 0 hydroxyzine HCl 25 mg tablet 50 mg PO BEDTIME RF: 0 hydrocodone-acetaminophen 5-325 mg tablet 1 tab PO Q8H PRN (Reason: pain, severe) 3 Days Qty: 5 RF: 0 oxycodone 5 mg tablet 5 mg PO Q4-6H PRN (Reason: pain) Qty: 7 RF: 0 azithromycin 250 mg tablet See Rx Instructions .ROUTE .COMPLEX Qty: 6 RF: 0 benzonatate 200 mg capsule 200 mg PO TID PRN (Reason: cough) Qty: 20 RF: 0 albuterol sulfate 90 mcg/actuation HFA aerosol inhaler 2 puff inhalation Q4-6H PRN (Reason: shortness of breath or wheezing) Qty: 6.7 RF: 0 fluticasone propionate [Flonase Allergy Relief] 50 mcg/actuation spray,suspension 2 spray intranasal DAILY Qty: 16 RF: 0 hydrocodone-acetaminophen 5-325 mg tablet 1 tab PO Q8H PRN (Reason: pain, severe) 3 Days Qty: 3 RF: 0 sucralfate [Carafate] 1 gram tablet 1 g PO BID Qty: 60 RF: 6 metformin 500 mg tablet extended release 24 hr 500 mg PO DAILY 30 Days Qty: 30 RF: 5 acarbose 25 mg tablet 25 mg PO TID 30 Days Qty: 90 RF: 4 hydrochlorothiazide 12.5 mg capsule 12.5 mg PO DAILY RF: 0 ondansetron HCl 4 mg tablet 4 mg PO Q8H PRN (Reason: nausea and vomiting) Qty: 60 RF: 4 ropinirole 1 mg tablet 1 mg PO BEDTIME RF: 0 Referrals: Joyce Tapia MD [Primary Care Provider] - 2 days Stand Alone Forms: Work/School Release Interventions: ED Discharge Assessment Last Done: 07/25/21 16:33
== END 2021-07-25 16:33 | disposition home or self-care (01) ==
PROVIDERS: Emergency Provider Internal Medicine; PCP Student in an Organized Health Care Education/Training Program
DX: B34.9 Viral infection, unspecified (principal); Z20.822 Contact with and (suspected) exposure to COVID-19; E11.9 Type 2 diabetes mellitus without complications; E78.5 Hyperlipidemia, unspecified; F17.200 Nicotine dependence, unspecified, uncomplicated; Z98.84 Bariatric surgery status; Z79.899 Other long term (current) drug therapy
CPT/HCPCS: 87635; 99283

== ENCOUNTER 2021-08-19 09:41 | Outpatient (REF) | payer MEDICAID, SELFPAY ==
--- NOTE | ~2021-08-19 | MM_ITS ---
EXAMINATION: MM SCREENING DIGITAL BREAST TOMOSYNTHESIS, BILATERAL CLINICAL INFORMATION: Screening. Asymptomatic. History chronic hidradenitis suppurativa. The lifetime risk of breast cancer based on the Tyrer-Cuzick Model is 9%. COMPARISON: Mammography: 08/16/2020, 10/27/2018, 04/25/2017 TECHNIQUE: Digital breast tomosynthesis is performed in both the craniocaudal and mediolateral oblique views along with computer-aided detection (CAD). Synthesized 2D images are generated from the tomosynthesis. FINDINGS: There are scattered areas of fibroglandular density (ACR BI-RADS breast composition Category b). There are no significant masses, abnormal calcifications, or other abnormalities. Axillary nodes are stable. Skin contours are smooth. There are no significant changes. MM/MM tomosynthesis screening BI IMPRESSION: No mammographic evidence of malignancy. ASSESSMENT: BI-RADS 2: Benign RECOMMENDATION: Routine annual mammography screening. This patient's information was entered into a reminder system with a target due date for their next mammogram.
== END 2021-08-19 09:42 | disposition home or self-care (01) ==
LOC: HO.MAMMO 09:41
PROVIDERS: Visit Provider Student in an Organized Health Care Education/Training Program
DX: Z12.31 Encounter for screening mammogram for malignant neoplasm of breast (principal)
CPT/HCPCS: 77063; 77067

== ENCOUNTER 2021-08-20 08:11 | Outpatient (REF) | payer MEDICAID, SELFPAY ==
[2021-08-20 09:24] LABS: Albumin Globulin Ratio 1.6; Globulin 2.5 g/dL; Total Protein 6.5 g/dL (6.5-8.0)
[2021-08-20 09:37] LABS: Cholesterol 201 mg/dL; HDL Cholesterol 63 mg/dL; LDL Cholesterol Calculated 127 mg/dl; Total Protein 6.4 g/dL (6.5-8.0); Triglycerides 57 mg/dL
[2021-08-20 09:53] LABS: Free T4 (Free Thyroxine) 0.71 ng/dL (0.71-1.85)
[2021-08-20 09:54] LABS: Thyroid Stimulating Hormone 2.28 uIU/mL (0.32-4.0)
[2021-08-20 10:37] LABS: Creatinine Urine 109.98 mg/dL; Microalbumin Urine < 5.0 mg/L
[2021-08-22 01:57] LABS: LDL Cholesterol Direct 127 mg/dL (<100)
== END 2021-08-20 08:12 | disposition home or self-care (01) ==
LOC: HO.LAB 08:11
PROVIDERS: Physician Assistant; PCP Student in an Organized Health Care Education/Training Program; Visit Provider Internal Medicine Endocrinology, Diabetes & Metabolism
DX: E78.5 Hyperlipidemia, unspecified (principal); R11.10 Vomiting, unspecified; E04.2 Nontoxic multinodular goiter; E11.9 Type 2 diabetes mellitus without complications; F17.210 Nicotine dependence, cigarettes, uncomplicated; Z79.899 Other long term (current) drug therapy; Z98.84 Bariatric surgery status
CPT/HCPCS: 36415; 80061; 82040; 82043; 82947; 83036; 83721; 84155; 84439; 84443; 99212

== ENCOUNTER → 2021-09-04 08:55 | Outpatient (BNVA) | payer MEDICAID, SELFPAY | PROVIDERS: PCP Student in an Organized Health Care Education/Training Program; Visit Provider Surgery | DX: L73.2 Hidradenitis suppurativa (principal) | CPT/HCPCS: 99212 ==

== ENCOUNTER → 2021-09-08 10:13 | Outpatient (BNVA) | payer MEDICAID, SELFPAY | PROVIDERS: PCP Student in an Organized Health Care Education/Training Program; Visit Provider Orthopaedic Surgery | DX: M25.642 Stiffness of left hand, not elsewhere classified (principal); M65.332 Trigger finger, left middle finger; M65.342 Trigger finger, left ring finger; M79.642 Pain in left hand; R20.0 Anesthesia of skin; R20.2 Paresthesia of skin | CPT/HCPCS: 99212 ==

== ENCOUNTER 2021-09-13 17:00 | Emergency (ER) | payer OTHER, MEDICAID, SELFPAY ==
--- NOTE | ~2021-09-13 | XR_ITS ---
EXAMINATION: X-RAY RIGHT ANKLE X-RAY RIGHT FOOT CLINICAL INFORMATION: Pain. COMPARISON: Radiograph of the right foot dated from 02/04/2014. MR of the right foot dated from 02/15/2008. TECHNIQUE: 3 views of the right ankle and 3 views of the right foot were obtained. FINDINGS: Right ankle: No acute fractures or malalignment. The ankle mortise is congruent. Mild multifocal degenerative osteoarthritis with enthesophytes at the talar dome and spurring in the calcaneus. Diffuse soft tissue swelling. No unexpected foreign bodies. Right foot: Diffuse soft tissue edema which is however more notable along the forefoot (lateral view) where there are some indeterminate punctate radiopaque bodies. No acute fractures or malalignment. Mild multifocal degenerative osteoarthritis. XR/XR foot RT 2V IMPRESSION: 1. No acute fractures or malalignment. 2. Diffuse soft tissue edema around the ankle and foot but more prominent in the forefoot with some nonspecific punctate radiopaque bodies which could be foreign bodies. Correlate clinically and with physical examination.
--- NOTE | ~2021-09-13 | XR_ITS ---
EXAMINATION: X-RAY RIGHT ANKLE X-RAY RIGHT FOOT CLINICAL INFORMATION: Pain. COMPARISON: Radiograph of the right foot dated from 02/04/2014. MR of the right foot dated from 02/15/2008. TECHNIQUE: 3 views of the right ankle and 3 views of the right foot were obtained. FINDINGS: Right ankle: No acute fractures or malalignment. The ankle mortise is congruent. Mild multifocal degenerative osteoarthritis with enthesophytes at the talar dome and spurring in the calcaneus. Diffuse soft tissue swelling. No unexpected foreign bodies. Right foot: Diffuse soft tissue edema which is however more notable along the forefoot (lateral view) where there are some indeterminate punctate radiopaque bodies. No acute fractures or malalignment. Mild multifocal degenerative osteoarthritis. XR/XR ankle RT 2V IMPRESSION: 1. No acute fractures or malalignment. 2. Diffuse soft tissue edema around the ankle and foot but more prominent in the forefoot with some nonspecific punctate radiopaque bodies which could be foreign bodies. Correlate clinically and with physical examination.
[2021-09-13 17:04] VITALS: BP 129/63; PULSE 90; RESP 18; O2SAT 94; BMI 26.4
--- NOTE | 2021-09-13 17:27 | ED.LOWEXIN ---
HPI - Extremity Injury (Lower) General Chief Complaint: Extremity Injury, Lower Stated Complaint: ankle INJ Time Seen by Provider: 09/13/21 17:27 Source: patient Mode of arrival: wheelchair Limitations: no limitations History of Present Illness HPI Narrative: Patient is a 60 year old female presenting to the emergency department today with right foot and right ankle pain. Patient states that she was using a U-boat at work when she accidentally ran over her right foot and ankle. Patient states that initially, it didn't bother her but now, when she puts pressure on her right foot, it hurts. Patient describes the pain as sharp and rates it at a 4/10. Patient denies hitting her head in the incident or having any loss of consciousness. Patient denies any dizziness, lightheadedness, abdominal pain, nausea, vomiting, fever, chills, blurry vision, double vision, loss of vision, chest pain, difficulty breathing, shortness of breath, back pain, night sweats, pain with urination, increased urinary frequency, increased urinary urgency, blood in her urine or stool, syncope or a near syncopal episode, bowel incontinence, bladder incontinence, bowel retention, bladder retention, or any other complaints at this time. MD complaint: ankle injury and foot injury Onset (ago): day(s) (1) Type of Injury: blunt Place: work Severity: mild Severity scale (1-10): 4 Relieving factors: nothing Exacerbating factors: nothing Context: direct blow Associated symptoms: swelling and able to partially bear weight Other symptoms: none Related Data Home Medications Medication Instructions Recorded Confirmed sertraline 50 mg tablet 50 mg PO BEDTIME 04/24/20 09/04/21 hydrochlorothiazide 12.5 mg capsule 12.5 mg PO DAILY 05/09/20 09/04/21 hydroxyzine HCl 25 mg tablet 50 mg PO BEDTIME tab 06/04/20 09/04/21 ropinirole 1 mg tablet 1 mg PO BEDTIME 10/28/20 09/04/21 Previous Rx's Medication Instructions Recorded ondansetron HCl 4 mg tablet 4 mg PO Q8H PRN #60 tab 05/09/20 sucralfate 1 gram tablet (Carafate) 1 g PO BID #60 tab 06/04/20 cholecalciferol (vitamin D3) 50 50 mcg PO DAILY #30 cap 12/15/20 mcg (2,000 unit) capsule acarbose 25 mg tablet 25 mg PO TID 30 Days #90 tab 12/31/20 metformin 500 mg tablet,extended 500 mg PO DAILY 30 Days #30 tab 12/31/20 release 24 hr oxycodone-acetaminophen 5 mg-325 1 tab PO Q8H PRN #9 tab 01/19/21 mg tablet cyclobenzaprine 10 mg tablet 10 mg PO Q8H #20 tab 03/01/21 tramadol 50 mg tablet 50 mg PO Q6H PRN #20 tab 03/01/21 oxycodone 5 mg tablet 5 mg PO Q6H PRN #20 tab 03/10/21 pantoprazole 40 mg tablet,delayed 40 mg PO DAILY #60 tab 04/06/21 release oxycodone 5 mg tablet 5 mg PO Q4-6H PRN #7 tab 04/09/21 albuterol sulfate 90 mcg/actuation 2 puff INHALATION Q4-6H PRN #6.7 g 06/21/21 aerosol inhaler benzonatate 200 mg capsule 200 mg PO TID PRN #20 cap 06/21/21 fluticasone propionate 50 2 spray INTRANASAL DAILY #16 g 06/21/21 mcg/actuation nasal spray,suspension (Flonase Allergy Relief) blood sugar diagnostic (FreeStyle #150 strip 08/21/21 Lite Strips) blood-glucose meter (FreeStyle #1 ea 08/21/21 Lite Meter) chlorhexidine gluconate 4 % 1 appl TOPICAL .COMPLEX 20 Days 09/04/21 topical liquid (Hibiclens) #237 ml metronidazole 500 mg tablet 500 mg PO Q8H 14 Days #42 tab 09/04/21 Allergies Allergy/AdvReac Type Severity Reaction Status Date / Time Penicillins Allergy Intermediate HIVES Verified 09/08/21 10:28 sulfamethoxazole Allergy Intermediate BLISTERS- Verified 09/08/21 10:28 [From BACTRIM] DELGADO - NERVE ENDINGS IN HAND/ERYTHEMA MULTIFORM trimethoprim [From BACTRIM] Allergy Intermediate BLISTERS- Verified 09/08/21 10:28 DELGADO - NERVE ENDINGS IN HAND/ERYTHEMA MULTIFORM latex [Latex] Allergy Mild RASH Verified 09/08/21 10:28 theophylline AdvReac Intermediate TACHYCARDIA Verified 09/08/21 10:28 TEGADERM Allergy Intermediate SKIN TEARS Uncoded 09/08/21 10:28 From COMPAZINE AdvReac Severe SEIZURES Uncoded 09/08/21 10:28 Review of Systems Constitutional: Constitutional: Reports no additional constitutional complaints, Denies chills, Denies fever(s) and Denies night sweats Eyes: Eyes: Reports no additional eye complaints, Denies blurry vision, Denies change in vision, Denies diplopia, Denies eye discharge, Denies loss of vision and Denies eye pain ENT: Denies dizziness Cardiovascular: Cardiovascular: Reports no additional cardiovascular complaints, Denies chest pain, Denies lightheadedness, Denies Loss of Consciousness and Denies dyspnea Respiratory: Respiratory: Reports no additional respiratory complaints and Denies dyspnea Gastrointestinal: Gastrointestinal: Reports no additional gastrointestinal complaints, Denies abdominal pain, Denies melena, Denies hematochezia, Denies change in bowel habits and Denies change in stool character Genitourinary: Genitourinary: Denies hematuria, Denies urinary frequency, Denies dysuria, Denies urinary incontinence, Denies urinary hesitancy and Denies urinary urgency Musculoskeletal: Musculoskeletal: Reports no additional musculoskeletal complaints, Denies numbness and Denies tingling Comments: right foot pain, right ankle pain, right ankle swelling Neurologic: Denies dizziness, Denies loss of vision, Denies numbness and Denies tingling Psychiatric: Psychiatric: Reports no additional psychiatric complaints Endocrine: Endocrine: Reports no additional endocrine complaints Hematologic/Lymphatic: Hematologic/Lymphatic: Reports no additional hematologic/lymphatic complaints Allergic/Immunologic: Allergic/Immunologic: Reports no additional allergic/immunologic complaints [facility] Past Medical History Attestation statement: The following information was validated with the patient. Source: old records reviewed Medical History Anastomotic ulcer Anxiety Asthma Borderline diabetes Depression Diabetes type 2, controlled DVT (deep venous thrombosis) Dyslipidemia GERD (gastroesophageal reflux disease) High cholesterol History of restless legs syndrome Non-toxic multinodular goiter Surgical History History of hysterectomy History of tooth extraction Hx of esophagogastroduodenoscopy Hx of hand surgery S/P gastric bypass Family History Family History Mother Diabetes mellitus CHF (congestive heart failure) Kidney failure Cervical cancer Brother No problems noted. Brother No problems noted. Social History Social History Are you a primary resident care spec to a significant other at home: No Do you presently have visiting nurse or other home services: No Alcohol intake: never Patient Tobacco Use Status: Current someday Tobacco user Cigarettes Per Day: 30 Years Smoked: 30 Advance Directives: No Advance Directives Information Provided: No Physical Exam Vital Signs: Vital Signs: Last Vital Signs Pulse 90 09/13/21 17:04 Resp 18 09/13/21 17:04 BP 129/63 09/13/21 17:04 Pulse Ox 94 09/13/21 17:04 BMI result Body Mass Index 26.4 Const: General: cooperative, no acute distress, alert and awake Nutritional Appearance: well nourished Orientation/consciousness: patient oriented x3 Limitations: no limitations HENMT: Head: Yes normal to inspection and Yes atraumatic Ears: hearing grossly normal bilaterally and external ears normal General nose exam: Normal external nose present, no nasal discharge noted and no epistaxis Face and sinus: Yes normal facial exam, No abrasion and No laceration Mouth: Normal oral and palatal mucosa present, no drooling and no muffled voice Eyes: General: appearance normal, both eyes and all related structures Periorbital: periorbital findings normal Eyelids: Yes eyelids normal Conjunctivae: conjunctivae normal Pupils: Equal, round and reactive pupils present EOM: EOMs intact bilaterally Neck: Neck: Yes normal visual inspection, Yes full ROM and Yes no lymphadenopathy Chest: Chest palpation & inspection: normal inspection of the chest Resp: Effort & Inspection: normal respiratory effort and able to speak in complete sentences Auscultation: clear to auscultation bilaterally Cardio: Rate: regular rate Rhythm: regular rhythm GI: Inspection: Yes normal to inspection Neuro: General: patient oriented x3 and moves all extremities Cranial nerves: Yes Equal, round and reactive pupils present Cognition (Neuro): normal cognition Motor exam (neuro): 5/5 motor strength present throughout Sensory Exam: Normal double simultaneous stimulation for sensation Coordination: [id number] test normal Extrem: Other: right ankle swelling and tenderness to palpation of the right midfoot General: Yes full ROM and Yes capillary refill normal Psych: Appearance: grossly normal Mental Status: mental status grossly normal Affect: normal affect Attitude: cooperative Thought process: Normal thought process present Thought content: Normal thought content present Insight: Good insight present (Psych) MDM - Extremity Injury (Lower) MDM Narrative Medical decision making narrative: Patient is a 60 year old female presenting to the emergency department today with right foot and ankle pain. Patient's physical exam showed mild swelling to the right ankle and tenderness to palpation of the right midfoot. Patient's right foot and right ankle x-ray showed no acute fractures or malalignment however, it showed prominent nonspecific punctate radiopaque bodies which could be foreign bodies in the forefoot. The patient's physical exam was not consistent with the presence of foreign bodies there. Due to this radiographic finding and the patient's pinpoint tenderness of the midfoot, I'm going to place the patient in a walking boot, have her remain non weight bearing, use crutches, and follow up with orthopedics. I explained my physical exam findings as well as all test results to the patient. I answered all questions asked by the patient. I stressed the importance of the patient taking her medication as prescribed. I stressed the importance of the patient following up with her primary care provider and an orthopedic provider. I stressed the importance of the patient returning to the emergency department immediately if her symptoms were to worsen or if she were to develop any dizziness, shortness of breath, difficulty breathing, chest pain, blurry vision, loss of vision, nausea, vomiting, abdominal pain, fever, chills, back pain, or any other complaints. Patient verbalized agreement and understanding with this treatment plan and discharge. Differential Diagnosis Differential diagnosis: Likely ankle sprain and strain (foot fracture) and ankle fracture Medical Records Attestation: I reviewed the patient's medical records. Imaging Data Right foot and ankle x-ray: Attestation: I personally reviewed and interpreted this imaging study as follows: My impression: No acute fracture seen in the right ankle or right foot. Radiologist's impression: EXAMINATION: X-RAY RIGHT ANKLE X-RAY RIGHT FOOT CLINICAL INFORMATION: Pain.? COMPARISON: Radiograph of the right foot dated from 02/04/2014. MR of the right foot dated from 02/15/2008.? TECHNIQUE: 3 views of the right ankle and 3 views of the right foot were obtained. FINDINGS: Right ankle: No acute fractures or malalignment. The ankle mortise is congruent. Mild multifocal degenerative osteoarthritis with enthesophytes at the talar dome and spurring in the calcaneus. Diffuse soft tissue swelling. No unexpected foreign bodies. Right foot: Diffuse soft tissue edema which is however more notable along the forefoot (lateral view) where there are some indeterminate punctate radiopaque bodies. No acute fractures or malalignment. Mild multifocal degenerative osteoarthritis.? XR/XR foot RT 2V IMPRESSION: 1.? No acute fractures or malalignment. 2.? Diffuse soft tissue edema around the ankle and foot but more prominent in the forefoot with some nonspecific punctate radiopaque bodies which could be foreign bodies. Correlate clinically and with physical examination.? Dictated By: Celeste Rose Signed By: Electronically signed by Celeste?Rose 09/13/21 2012 Discharge Plan Discharge Clinical Impression: Foot fracture, right Patient Disposition: Home, Self-Care Instructions: Foot Fracture in Adults (ED) Additional Instructions: Remain NON weight bearing to the right foot. Call to schedule a follow up appointment with an Orthopedic provider. Follow up with your primary care provider. Return to the emergency department immediately if your symptoms worsen or if you develop any dizziness, shortness of breath, difficulty breathing, chest pain, blurry vision, loss of vision, nausea, vomiting, abdominal pain, fever, chills, back pain, or any other complaints. Prescriptions: No Action cholecalciferol (vitamin D3) 50 mcg (2,000 unit) capsule 50 mcg PO DAILY Qty: 30 11RF oxycodone-acetaminophen 5-325 mg tablet 1 tab PO Q8H PRN (Reason: pain) Qty: 9 0RF pantoprazole 40 mg tablet,delayed release (DR/EC) 40 mg PO DAILY Qty: 60 6RF (DME) FreeStyle Lite Strips Strip See Rx Instructions .ROUTE .COMPLEX Qty: 150 0RF Dose Instruction: USE TO TEST BLOOD SUGAR TWICE DAILY Rx Instructions: USE TO TEST BLOOD SUGAR TWICE DAILY cyclobenzaprine 10 mg tablet 10 mg PO Q8H Qty: 20 0RF tramadol 50 mg tablet 50 mg PO Q6H PRN (Reason: pain) Qty: 20 0RF oxycodone 5 mg tablet 5 mg PO Q6H PRN (Reason: Pain (Scale Score 7-10)) Qty: 20 0RF sertraline 50 mg Tablet 50 mg PO BEDTIME 0RF hydroxyzine HCl 25 mg tablet 50 mg PO BEDTIME 0RF oxycodone 5 mg tablet 5 mg PO Q4-6H PRN (Reason: pain) Qty: 7 0RF Rx Instructions: Patient may request fewer tablets than prescribed benzonatate 200 mg capsule 200 mg PO TID PRN (Reason: cough) Qty: 20 0RF albuterol sulfate 90 mcg/actuation HFA aerosol inhaler 2 puff inhalation Q4-6H PRN (Reason: shortness of breath or wheezing) Qty: 6.7 0RF fluticasone propionate [Flonase Allergy Relief] 50 mcg/actuation spray,suspension 2 spray intranasal DAILY Qty: 16 0RF Rx Instructions: administer into each nostril sucralfate [Carafate] 1 gram tablet 1 g PO BID Qty: 60 6RF metformin 500 mg tablet extended release 24 hr 500 mg PO DAILY 30 Days Qty: 30 5RF acarbose 25 mg tablet 25 mg PO TID 30 Days Qty: 90 4RF hydrochlorothiazide 12.5 mg capsule 12.5 mg PO DAILY 0RF ondansetron HCl 4 mg tablet 4 mg PO Q8H PRN (Reason: nausea and vomiting) Qty: 60 4RF ropinirole 1 mg tablet 1 mg PO BEDTIME 0RF Rx Instructions: administer 1-3 hours before bedtime metronidazole 500 mg tablet 500 mg PO Q8H 14 Days Qty: 42 0RF chlorhexidine gluconate [Hibiclens] 4 % liquid 1 appl topical .COMPLEX 20 Days Qty: 237 4RF Rx Instructions: 1 appl topical 3-4 times weekly; lather all skin in shower and leave on for one minute before washing off. (DME) blood-glucose meter [FreeStyle Lite Meter] Kit See Rx Instructions .Route Qty: 1 0RF Rx Instructions: As directed test blood sugar two times a day Referrals: Tom Dorantes MD [Physician] - 1 day Joyce Tapia MD [Primary Care Provider] - 2 days Stand Alone Forms: Work/School Release Print Language: Setswana
== END 2021-09-13 18:19 | disposition home or self-care (01) ==
PROVIDERS: Emergency Provider Emergency Medicine Emergency Medical Services; PCP Student in an Organized Health Care Education/Training Program
DX: S92.901A Unspecified fracture of right foot, initial encounter for closed fracture (principal); Y29.XXXA Contact with blunt object, undetermined intent, initial encounter; Y93.9 Activity, unspecified; Y92.838 Other recreation area as the place of occurrence of the external cause; Y99.0 Civilian activity done for income or pay; Z79.899 Other long term (current) drug therapy; F17.210 Nicotine dependence, cigarettes, uncomplicated; Z71.6 Tobacco abuse counseling
CPT/HCPCS: 73600; 73620; 99284

== ENCOUNTER → 2021-09-17 10:21 | Outpatient (BNVA) | payer MEDICAID, SELFPAY | PROVIDERS: PCP Student in an Organized Health Care Education/Training Program; Visit Provider Surgery | DX: L72.0 Epidermal cyst (principal); L73.2 Hidradenitis suppurativa | CPT/HCPCS: 99212 ==

== ENCOUNTER → 2021-09-30 09:40 | Day surgery (SDC) | payer MEDICAID, SELFPAY ==
[2021-09-24 15:10] VITALS: BMI 28.0
--- NOTE | 2021-09-29 09:12 | P.CONAN_ITS ---
HPI - Anesthesia Eval Consult details Narrative: Cx'd DOS d/t surgeon availability. 60yo F for Bilateral Excision groin Cyst ? chronic opioid rx PMFSH Active Problems Active Problems: All Active Problems (Updated 09/14/21 @ 00:01 by Donnell Perez) Numbness and tingling in left hand (Acute) Left hand pain (Acute) Hidradenitis suppurativa (Acute) Stiffness of left hand joint (Acute) Emesis (Acute) Dyslipidemia (Acute) Non-toxic multinodular goiter (Acute) Diabetes type 2, controlled (Acute) Overweight (BMI 25.0-29.9) (Acute) Epidermal inclusion cyst (Acute) Trigger finger, left middle finger (Acute) Trigger finger, left ring finger (Acute) Anastomotic ulcer (Acute) S/P gastric bypass (Acute) Borderline diabetes (Acute) Past Medical History Medical History Anastomotic ulcer Anxiety Asthma Borderline diabetes Depression Diabetes type 2, controlled DVT (deep venous thrombosis) Dyslipidemia GERD (gastroesophageal reflux disease) High cholesterol History of restless legs syndrome Non-toxic multinodular goiter Family History Family History Mother Diabetes mellitus CHF (congestive heart failure) Kidney failure Cervical cancer Brother No problems noted. Brother No problems noted. Surgical History Surgical History History of hysterectomy History of tooth extraction Hx of esophagogastroduodenoscopy Hx of hand surgery S/P gastric bypass Social History Social History Are you a primary pharmacy care coordinator to a significant other at home: No Do you presently have visiting nurse or other home services: No Alcohol intake: never Patient Tobacco Use Status: Current someday Tobacco user Cigarettes Per Day: 30 Years Smoked: 30 Meds Allergies Allergy/AdvReac Type Severity Reaction Status Date / Time Penicillins Allergy Intermediate HIVES Verified 09/17/21 10:33 sulfamethoxazole Allergy Intermediate BLISTERS- Verified 09/17/21 10:33 [From BACTRIM] DELGADO - NERVE ENDINGS IN HAND/ERYTHEMA MULTIFORM trimethoprim [From BACTRIM] Allergy Intermediate BLISTERS- Verified 09/17/21 10:33 DELGADO - NERVE ENDINGS IN HAND/ERYTHEMA MULTIFORM latex [Latex] Allergy Mild RASH Verified 09/17/21 10:33 theophylline AdvReac Intermediate TACHYCARDIA Verified 09/17/21 10:33 TEGADERM Allergy Intermediate SKIN TEARS Uncoded 09/17/21 10:33 From COMPAZINE AdvReac Severe SEIZURES Uncoded 09/17/21 10:33 Home Medications Medication Instructions Recorded Confirmed Last Taken Type sertraline 50 mg tablet 50 mg PO BEDTIME 04/24/20 09/17/21 Unknown History hydrochlorothiazide 12.5 mg capsule 12.5 mg PO DAILY 05/09/20 09/17/21 Unknown History hydroxyzine HCl 25 mg tablet 50 mg PO BEDTIME tab 06/04/20 09/17/21 Unknown History ropinirole 1 mg tablet 1 mg PO BEDTIME 10/28/20 09/17/21 Unknown History Exam Exam Date and Time: September 29, 2021 0912 Height,Weight and Vital Signs: Height 5 ft 3 in Weight 71.668 kg Pertinent Lab Results Pertinent Lab Results: Laboratory Tests 06/14/21 06/14/21 02:32 02:32 WBC 12.7 H Hgb 12.9 Hct 39.1 Plt Count 206 Sodium 141 Potassium 3.4 D Chloride 106 Carbon Dioxide 27 BUN 15 Creatinine 0.89 Narrative Narrative: EKG 10/2020 Vent. Rate : 074 BPM ? ? Atrial Rate : 074 BPM ?? P-R Int : 158 ms? QRS Dur : 074 ms ? ? QT Int : 366 ms ? ? ? P-R-T Axes : 011 033 032 degrees ?? QTc Int : 406 ms ? Normal sinus rhythm Normal ECG When compared with ECG of 06-MAR-2020 20:20, No significant change was found Assessment and Plan Assessment Anesthesia Assessment: Chart Reviewed
== END ==
PROVIDERS: PCP Student in an Organized Health Care Education/Training Program; Visit Provider Surgery
DX: L72.0 Epidermal cyst (principal); Z53.8 Procedure and treatment not carried out for other reasons

== ENCOUNTER 2021-10-01 08:21 | Outpatient (REF) | payer MEDICAID, SELFPAY ==
--- NOTE | 2021-10-01 08:25 | EMG_ITS ---
Left median and ulnar motor and sensory studies were performed. Left radial sensory study was performed. Paraspinal muscles were tested. IMPRESSION: 1. [id number] left median neuropathy across carpal tunnel. 2. Mild left ulnar neuropathy across cubital tunnel. MD RAJENDRA Lacey/DAYSI / [id number]
== END 2021-10-01 08:22 | disposition home or self-care (01) ==
LOC: HO.NEURO 08:21
PROVIDERS: PCP Student in an Organized Health Care Education/Training Program; Visit Provider Orthopaedic Surgery
DX: R20.0 Anesthesia of skin (principal); R20.2 Paresthesia of skin
CPT/HCPCS: 95886; 95909

== ENCOUNTER → 2021-10-07 12:45 | Outpatient (BNVA) | payer MEDICAID, SELFPAY | PROVIDERS: PCP Student in an Organized Health Care Education/Training Program; Visit Provider Physician Assistant | DX: S90.01XA Contusion of right ankle, initial encounter (principal) | CPT/HCPCS: 99202 ==

== ENCOUNTER → 2021-10-21 13:08 | Outpatient (BNVA) | payer MEDICAID, SELFPAY | PROVIDERS: PCP Student in an Organized Health Care Education/Training Program; Visit Provider Orthopaedic Surgery | DX: M25.642 Stiffness of left hand, not elsewhere classified (principal); G56.02 Carpal tunnel syndrome, left upper limb; G56.22 Lesion of ulnar nerve, left upper limb | CPT/HCPCS: 99212 ==

== ENCOUNTER 2021-10-26 10:20 | Day surgery (SDC) | payer MEDICAID, SELFPAY ==
[2021-10-20 13:51] VITALS: BMI 27.4
[2021-10-26] VITALS (11 sets, daily range): BP systolic 126–164; BP diastolic 71–88; PULSE 65–86; RESP 14–18; TEMP 36.2–36.3; O2SAT 92–100
[2021-10-26 11:07] LABS: Glucose, Whole Blood 127 mg/dL (60-115)
[2021-10-26] MEDS: Lactated Ringers 1,000 ML 100 ML IVCONT (11:15)
[2021-10-26] MEDS: vancomycin HCL 1,000 MG in 0.9 % Sodium Chloride 250 ML 270 MG IV (11:16)
--- NOTE | 2021-10-26 12:07 | P.CONAN_ITS ---
HPI - Anesthesia Eval Consult details Narrative: 60 F for excision of groin cyst back pain with radiation to LE PMFSH Active Problems Active Problems: All Active Problems (Updated 10/21/21 @ 14:43 by Jessy Bautista MD) Cubital tunnel syndrome on left (Acute) Carpal tunnel syndrome of left wrist (Acute) Overweight (BMI 25.0-29.9) (Acute) Epidermal inclusion cyst (Acute) Trigger finger, left middle finger (Acute) Trigger finger, left ring finger (Acute) Emesis (Acute) Stiffness of left hand joint (Acute) Hidradenitis suppurativa (Acute) Left hand pain (Acute) Numbness and tingling in left hand (Acute) Contusion of right ankle (Acute) Dyslipidemia (Acute) Non-toxic multinodular goiter (Acute) Diabetes type 2, controlled (Acute) Anastomotic ulcer (Acute) S/P gastric bypass (Acute) Borderline diabetes (Acute) Past Medical History Medical History (Updated 10/21/21 @ 14:43 by Jessy Bautista MD) Anastomotic ulcer Anxiety Asthma Borderline diabetes Depression Diabetes type 2, controlled DVT (deep venous thrombosis) Dyslipidemia GERD (gastroesophageal reflux disease) High cholesterol History of restless legs syndrome Non-toxic multinodular goiter Family History Family History Mother Diabetes mellitus CHF (congestive heart failure) Kidney failure Cervical cancer Brother No problems noted. Brother No problems noted. Family history of problems with anesthesia: No Surgical History Surgical History (Updated 10/20/21 @ 13:48 by Harriet Chow RN) History of hysterectomy History of tooth extraction Hx of esophagogastroduodenoscopy Hx of hand surgery S/P gastric bypass S/P trigger finger release History of Problems with Anesthesia: No Social History Social History Are you a primary health care administrator to a significant other at home: No Do you presently have visiting nurse or other home services: No Alcohol intake: never Patient Tobacco Use Status: Current someday Tobacco user Tobacco use type: Cigarette Cigarette Packs Per Day: 0 Cigarettes Per Day: 2 Years Smoked: 30 Smoked in Last 30 Days: Yes Patient Interested in Nicotine Replacement: No Patient Given Instructions on How to Stop Smoking: Yes Date Education Initiated: 10/20/21 Use of substances other than those prescribed or required for medical reasons: No Have you been hit, kicked, punched, or otherwise hurt by someone within the past year? If so, by whom?: No Are you DNR?: No Advance Directives: No Advance Directives Information Provided: No Advance Directives on File: No Recently lost weight without trying: No Eating poorly because of decreased appetite: No Nutrition Risks: No Nutritional Risk Patient : No Meds Allergies Allergy/AdvReac Type Severity Reaction Status Date / Time Penicillins Allergy Intermediate HIVES Verified 10/20/21 13:26 sulfamethoxazole Allergy Intermediate BLISTERS- Verified 10/20/21 13:26 [From BACTRIM] DELGADO - NERVE ENDINGS IN HAND/ERYTHEMA MULTIFORM trimethoprim [From BACTRIM] Allergy Intermediate BLISTERS- Verified 10/20/21 13:26 DELGADO - NERVE ENDINGS IN HAND/ERYTHEMA MULTIFORM latex [Latex] Allergy Mild RASH Verified 10/20/21 13:26 theophylline AdvReac Intermediate TACHYCARDIA Verified 10/20/21 13:26 TEGADERM Allergy Intermediate SKIN TEARS Uncoded 10/20/21 13:26 From COMPAZINE AdvReac Severe SEIZURES Uncoded 10/20/21 13:26 Active Medications: Current Medications Albuterol Sulfate (Albuterol Sulfate (0.083%) 2.5 Mg/3 Ml Vial.Neb) 2.5 mg INHALE ONCE PRN PRN Reason: Shortness of Breath/Wheezing Lactated Ringer's (Lr) 1,000 mls @ 100 mls/hr IVCONT .Q10H CHARITY Last Admin: 10/26/21 11:15 Dose: 100 mls/hr Documented by: Home Medications Medication Instructions Recorded Confirmed Last Taken Type hydrochlorothiazide 12.5 mg capsule 12.5 mg PO DAILY 05/09/20 10/20/21 Unknown History hydroxyzine HCl 25 mg tablet 50 mg PO BEDTIME tab 06/04/20 10/20/21 Unknown History ropinirole 1 mg tablet 1 mg PO BEDTIME 10/28/20 10/20/21 Unknown History pramipexole 0.25 mg tablet 1 tab DAILY 10/20/21 10/20/21 Unknown History sertraline 100 mg tablet 1 tab PO BEDTIME 10/20/21 10/20/21 Unknown History tizanidine 4 mg tablet 1 tab PO BEDTIME 10/20/21 10/20/21 Unknown History Exam Exam Date and Time: October 26, 2021 1207 Height,Weight and Vital Signs: Height 5 ft 3 in Weight 70.307 kg Last Vital Signs Temp 97.4 F 10/26/21 11:05 Pulse 65 10/26/21 11:05 Resp 16 10/26/21 11:05 BP 126/78 10/26/21 11:05 Pulse Ox 98 10/26/21 11:05 Pertinent Lab Results Pertinent Lab Results: Laboratory Tests 10/26/21 11:04 POC Glucose 127 H Airway Mallampati Class: I Neck ROM: Full Denture: Upper Loose/Missing/Broken Teeth: Yes (Chipped ) Heart: S1, S2 Assessment and Plan Assessment Anesthesia Assessment: Anesthesia Plan Discussed and Chart Reviewed Final Anesthetic Review Family History of Problems with Anesthesia: No History of Problems with Anesthesia: No NPO: Yes ASA Class: II Final Preanesthetic Review: Meds/Allgs Chart Reviewed, Consent Obtained/Reviewed and Anes Risks/Benef Reviewed Patient Risk: Intermediate Procedure Risk: Intermediate Anesthetic Plan Anesthetic Plan: GA Disposition: Standard PACU
--- NOTE | 2021-10-26 12:19 | MHC.SHP ---
Pre-Procedural Eval Section A Date of Service: 10/26/21 The patient is an INPATIENT: No Changes since office visit: Yes Patient answered all questions; No Cold of Flu in the past 2 weeks, No New Medical Problems and No Changes in Medication The History & Physical has been completed within 30 days and I have reviewed it.: Yes Section B Chief Complaint: Epidermal cyst,Hidradenitis suppurativa Allergies: Allergies Allergy/AdvReac Type Severity Reaction Status Date / Time Penicillins Allergy Intermediate HIVES Verified 10/20/21 13:26 sulfamethoxazole Allergy Intermediate BLISTERS- Verified 10/20/21 13:26 [From BACTRIM] DELGADO - NERVE ENDINGS IN HAND/ERYTHEMA MULTIFORM trimethoprim [From BACTRIM] Allergy Intermediate BLISTERS- Verified 10/20/21 13:26 DELGADO - NERVE ENDINGS IN HAND/ERYTHEMA MULTIFORM latex [Latex] Allergy Mild RASH Verified 10/20/21 13:26 theophylline AdvReac Intermediate TACHYCARDIA Verified 10/20/21 13:26 TEGADERM Allergy Intermediate SKIN TEARS Uncoded 10/20/21 13:26 From COMPAZINE AdvReac Severe SEIZURES Uncoded 10/20/21 13:26 Exam Surgical H&P Exam: Significant Findings: Skin (bilateral groin/labial cysts, painful to palpation) Plan Diagnosis/Plan: Change (bilateral painful labial cysts as well, patient requests excision) I have reviewed the history and physical and performed a pertinent physical examination on my patient. No changes have occurred unless specified.
--- NOTE | 2021-10-26 13:22 | P.OP_ITS ---
Operative Note Operative Note Date of Service: 10/26/21 Narrative: Preoperative diagnosis: Bilateral labial cysts and hidradenitis of the groins Postoperative diagnosis: Same Procedure:Excision of bilateral labial cyst and hidradenitis of groin Surgeon: Flaco Zambrano MD Master Technician: Nata Leon PA-C Anesthesia: General LMA Indications for procedure: 60-year-old female patient with a long history of hidradenitis presenting with multiple painful cyst involving bilateral labia and groins. She presents today for excision. Operative findings: Multiple areas of chronic hidradenitis and labial cysts bilaterally. Specimen: Bilateral labial cyst/groin cysts Estimated blood loss: 5 mL Complications: None Procedure details: Patient was brought to the OR and placed in a supine position. After administering general anesthesia the patient's perineum and labia were prepped with Betadine and draped in a sterile fashion. Patient was placed in a frog-leg position. A surgical time-out was called the consent confirmed. Patient received preoperative antibiotics and Venodyne boots were in place. Local anesthesia consisting of 0.25% Sensorcaine was infiltrated around the labial cyst bilaterally and groin cyst. Beginning at the groin cyst an elliptical incision was made with a scalpel measuring approximately 2 cm in length. This was carried down through subcutaneous tissue and around the cyst wall. Lesion was passed off table and sent to pathology for further examination. Skin was then closed using interrupted 4-0 nylon sutures. Attention was then directed to the right labial cysts which involved an area measuring approximately 4 cm in length. Elliptical incision was made at the apex of the labia and carried out through subcutaneous tissue. Electrocautery was then used to excise the entire skin and labial cysts. Hemostasis was assured using electrocautery. Dermis was then reapproximated using interrupted 3-0 Polysorb sutures. Skin was closed using a running Monocryl suture 4-0. Attention was then directed to the left labial cyst which was slightly larger than the right side measuring approximately 5 cm in length. Once again an elliptical incision was then made to include skin and cyst at the apex of labia. This carried out through subcutaneous tissue. Electrocautery was used to dissect the lesion off. Lesion was passed off the table and sent to pathology for further examination. After assuring adequate hemostasis the dermis was reapproximated using interrupted 3-0 Polysorb sutures. Skin was then closed using a running 4-0 Monocryl suture. Sterile dressings were then applied. Patient tolerated the procedure well. Sponge, instrument, and needle counts reported as correct. Patient was transferred to PACU in stable condition.
[2021-10-26] MEDS: Acetaminophen 325 MG TABLET 650 MG PO (13:45)
[2021-10-26] MEDS: fentaNYL citrate/PF 100 MCG/2 ML VIAL 25 MCG IVPUSH ×4 (13:45→14:05)
[2021-10-26] MEDS: oxyCODONE HCl Immed Release 5 MG TABLET PO (13:45)
== END 2021-10-26 15:08 | disposition home or self-care (01) ==
PROVIDERS: PCP Student in an Organized Health Care Education/Training Program; Visit Provider Surgery
PROC: (CPT 11462; principal; 2021-10-26 12:30)
DX: L72.0 Epidermal cyst (principal); N90.7 Vulvar cyst; L73.2 Hidradenitis suppurativa; E78.5 Hyperlipidemia, unspecified; K21.9 Gastro-esophageal reflux disease without esophagitis; E04.2 Nontoxic multinodular goiter; E11.9 Type 2 diabetes mellitus without complications; Z79.51 Long term (current) use of inhaled steroids; Z79.84 Long term (current) use of oral hypoglycemic drugs; Z79.899 Other long term (current) drug therapy; Z88.0 Allergy status to penicillin; Z88.8 Allergy status to other drugs, medicaments and biological substances; Z91.040 Latex allergy status; F17.210 Nicotine dependence, cigarettes, uncomplicated
CPT/HCPCS: 11462; 11424; 11426; 82947; 88304; J1100; J2250; J2405; J2795; J3010; J3370

== ENCOUNTER → 2021-11-03 10:04 | Outpatient (BNVA) | payer MEDICAID, SELFPAY | PROVIDERS: PCP Student in an Organized Health Care Education/Training Program; Visit Provider Surgery | DX: Z48.817 Encounter for surgical aftercare following surgery on the skin and subcutaneous tissue (principal); Z87.2 Personal history of diseases of the skin and subcutaneous tissue | CPT/HCPCS: 99212 ==

== ENCOUNTER 2021-11-10 11:00 | Outpatient (RCR) | payer MEDICAID, SELFPAY ==
--- NOTE | 2021-11-02 13:09 | MHC.PT.EP ---
[facility] [place] [facility] [place] [facility] [place] [facility] [address] Jake Srivastava [address] [phone] F: [phone] F: [phone] F: [phone] F: [phone] Physical Therapy Plan of Care Date of Evaluation: Date of Surgery: n/a Diagnosis: contusion of R ankle Assessment: Patient is a 60 year old female presenting to PT with complaints of pain in her R ankle. Pt reports onset of pain began about 1 month ago due to milk crates hitting her ankle when unloading a truck at work. She presents today with impairments in pain, ankle ROM, ankle strength, gait mechanics, and balance. Pt's current occupation is [employer] and at [employer], with baseline physical activities including standing, ambulation, stair negotiation and ADLS. 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 Clinical presentation today is most consistent with signs and sx associated with ankle contusion/sprain and pt will benefit from skilled PT to address the following problems and impairments noted upon evaluation: pain, ankle ROM, ankle strength, gait mechanics, and balance. These problems limit the patient with the following functional activities: standing, ambulation, stair negotiation and ADLS. The prescribed treatment plan of care is medically necessary. Co-morbidities of T2DM, hx DVT in B arms 2020 due to feeding through external tube, hidradenitis suppurative (currently has 30 stitches in her genital area and these are being removed tomorrow) were identified and taken into considerations of plan of care. Pt was educated on HEP, role of PT, prognosis, POC. Frequency and Duration: The patient will be seen 2 x week x 5 weeks Short Term Goals: Pt will demonstrate symmetrical ankle AROM in 3 weeks for improved ability to ambulate. Pt will demonstrate R ankle strength 5/5 in 3 weeks for improved ankle stability. Pt will demonstrate ability to SLS x 20 sec in 3 weeks for improved stability on stairs. Pharmacovigilance Specialist Goals: Pt will demonstrate improved LEFI score by 9 points in 5 weeks for improved general functional mobility. Pt will demonstrate ability to ambulate with normal mechanics and min to no pain in 5 weeks for return to PLOF. Pt will demonstrate ability to negotiate stairs step over step with min to no pain or difficulty in 5 weeks for improved access to her home. Treatment Plan: Modalities to reduce pain, spasms and effusion. Manual therapy to restore motion and function. Therapeutic exercise to improve strength and flexibility. Neuromuscular re-education for posture and balance. Therapeutic activities to return to functional activities of daily living. Electronically signed by: Mary White, PT, DPT, ATC Please sign and return to therapist. Thank you for your referral.
--- NOTE | 2021-12-18 07:59 | MHC.PT.DC ---
[facility] [place] Office [place] Office [place] Office [address] [phone] F: [phone] F: [phone] F: [phone] F: [phone] Physical Therapy Discharge Report Diagnosis: contusion of R ankle Date of Surgery: n/a Date of Evaluation: 11/02/21 Date of Discharge: 12/18/21 Treatments to Date: 2 Cancellations to Date: 2 No Shows to Date: 1 Discharge Status: Patient Elected to Stop Visit Non-compliance Discharge Summary: Pt cancelled her last 2 scheduled appointments and has not called to be rescheduled in >30 days. Pt status unknown. Electronically signed by: Mary White, PT, DPT, ATC Please sign and return to therapist. Thank you for your referral.
== END 2021-12-18 07:59 | disposition home or self-care (01) ==
LOC: HO.PTCHIC 11:00
PROVIDERS: PCP Student in an Organized Health Care Education/Training Program; Visit Provider Physician Assistant
DX: S90.01XA Contusion of right ankle, initial encounter (principal)
CPT/HCPCS: 97110; 97140; 97161; 97530

== ENCOUNTER 2021-11-16 05:59 | Day surgery (SDC) | payer MEDICAID, SELFPAY ==
[2021-11-10 15:25] VITALS: BMI 27.3
--- NOTE | 2021-11-13 09:13 | P.CONAN_ITS ---
Documented by User: Daily Aburto NP 11/13/21 09:16 HPI - Anesthesia Eval Consult details Narrative: 60yo F for Left Carpal Tunnel Release Repeat s/p Excision groin Cyst 10/2021 with GA-LMA 4 PMFSH Active Problems Active Problems: All Active Problems (Updated 10/21/21 @ 14:43 by Jessy Bautista MD) Overweight (BMI 25.0-29.9) (Acute) Epidermal inclusion cyst (Acute) Trigger finger, left middle finger (Acute) Trigger finger, left ring finger (Acute) Emesis (Acute) Stiffness of left hand joint (Acute) Hidradenitis suppurativa (Acute) Left hand pain (Acute) Numbness and tingling in left hand (Acute) Contusion of right ankle (Acute) Carpal tunnel syndrome of left wrist (Acute) Cubital tunnel syndrome on left (Acute) Dyslipidemia (Acute) Non-toxic multinodular goiter (Acute) Diabetes type 2, controlled (Acute) Anastomotic ulcer (Acute) S/P gastric bypass (Acute) Borderline diabetes (Acute) Past Medical History Medical History Anastomotic ulcer Anxiety Asthma Borderline diabetes Depression Diabetes type 2, controlled DVT (deep venous thrombosis) Dyslipidemia GERD (gastroesophageal reflux disease) High cholesterol History of restless legs syndrome Non-toxic multinodular goiter Family History Family History Mother Diabetes mellitus CHF (congestive heart failure) Kidney failure Cervical cancer Brother No problems noted. Brother No problems noted. Family history of problems with anesthesia: No Surgical History Surgical History (Updated 11/10/21 @ 15:24 by Nayely Thompson RN) History of excision of mass (10/26/21) History of hysterectomy History of tooth extraction Hx of esophagogastroduodenoscopy Hx of hand surgery S/P gastric bypass S/P trigger finger release History of Problems with Anesthesia: No Social History Social History Are you a primary district manager primary care sales to a significant other at home: No Do you presently have visiting nurse or other home services: No Alcohol intake: never Patient Tobacco Use Status: Current someday Tobacco user Tobacco use type: Cigarette Cigarette Packs Per Day: 0 Cigarettes Per Day: 3 Years Smoked: 30 Use of substances other than those prescribed or required for medical reasons: No Are you DNR?: No Advance Directives: No Advance Directives Information Provided: Yes Meds Allergies Allergy/AdvReac Type Severity Reaction Status Date / Time Penicillins Allergy Intermediate HIVES Verified 10/20/21 13:26 sulfamethoxazole Allergy Intermediate BLISTERS- Verified 10/20/21 13:26 [From BACTRIM] DELGADO - NERVE ENDINGS IN HAND/ERYTHEMA MULTIFORM trimethoprim [From BACTRIM] Allergy Intermediate BLISTERS- Verified 10/20/21 13:26 DELGADO - NERVE ENDINGS IN HAND/ERYTHEMA MULTIFORM latex [Latex] Allergy Mild RASH Verified 10/20/21 13:26 theophylline AdvReac Intermediate TACHYCARDIA Verified 10/20/21 13:26 TEGADERM Allergy Intermediate SKIN TEARS Uncoded 10/20/21 13:26 From COMPAZINE AdvReac Severe SEIZURES Uncoded 10/20/21 13:26 Home Medications Medication Instructions Recorded Confirmed Last Taken Type hydrochlorothiazide 12.5 mg capsule 12.5 mg PO DAILY 05/09/20 10/20/21 Unknown History hydroxyzine HCl 25 mg tablet 50 mg PO BEDTIME tab 06/04/20 10/20/21 Unknown History ropinirole 1 mg tablet 1 mg PO BEDTIME 10/28/20 10/20/21 Unknown History pramipexole 0.25 mg tablet 1 tab DAILY 10/20/21 10/20/21 Unknown History sertraline 100 mg tablet 1 tab PO BEDTIME 10/20/21 10/20/21 Unknown History tizanidine 4 mg tablet 1 tab PO BEDTIME 10/20/21 10/20/21 Unknown History Exam Exam Date and Time: November 13, [id number] Height,Weight and Vital Signs: Height 5 ft 3 in Weight 69.853 kg Pertinent Lab Results Pertinent Lab Results: Laboratory Tests 06/14/21 06/14/21 02:32 02:32 WBC 12.7 H Hgb 12.9 Hct 39.1 Plt Count 206 Sodium 141 Potassium 3.4 D Chloride 106 Carbon Dioxide 27 BUN 15 Creatinine 0.89 Narrative Narrative: EKG 2020 Vent. Rate : 074 BPM ? ? Atrial Rate : 074 BPM ?? P-R Int : 158 ms? QRS Dur : 074 ms ? ? QT Int : 366 ms ? ? ? P-R-T Axes : 011 033 032 degrees ?? QTc Int : 406 ms ? Normal sinus rhythm Normal ECG When compared with ECG of 06-MAR-2020 20:20, No significant change was found Assessment and Plan Assessment Anesthesia Assessment: Chart Reviewed Final Anesthetic Review Family History of Problems with Anesthesia: No History of Problems with Anesthesia: No Documented by User: Angela Byrnes MD 11/16/21 07:32 [facility] Past Medical History Medical History Anastomotic ulcer Anxiety Asthma Borderline diabetes Depression Diabetes type 2, controlled DVT (deep venous thrombosis) Dyslipidemia GERD (gastroesophageal reflux disease) High cholesterol History of restless legs syndrome Non-toxic multinodular goiter Family History Family History Mother Diabetes mellitus CHF (congestive heart failure) Kidney failure Cervical cancer Brother No problems noted. Brother No problems noted. Surgical History Surgical History (Updated 11/10/21 @ 15:24 by Nayely Thompson RN) History of excision of mass (10/26/21) History of hysterectomy History of tooth extraction Hx of esophagogastroduodenoscopy Hx of hand surgery S/P gastric bypass S/P trigger finger release Social History Social History Are you a primary district manager primary care sales to a significant other at home: No Do you presently have visiting nurse or other home services: No Alcohol intake: never Patient Tobacco Use Status: Current someday Tobacco user Tobacco use type: Cigarette Cigarette Packs Per Day: 0 Cigarettes Per Day: 3 Years Smoked: 30 Use of substances other than those prescribed or required for medical reasons: No Are you DNR?: No Advance Directives: No Advance Directives Information Provided: Yes Meds Allergies Allergy/AdvReac Type Severity Reaction Status Date / Time Penicillins Allergy Intermediate HIVES Verified 10/20/21 13:26 sulfamethoxazole Allergy Intermediate BLISTERS- Verified 10/20/21 13:26 [From BACTRIM] DELGADO - NERVE ENDINGS IN HAND/ERYTHEMA MULTIFORM trimethoprim [From BACTRIM] Allergy Intermediate BLISTERS- Verified 10/20/21 13:26 DELGADO - NERVE ENDINGS IN HAND/ERYTHEMA MULTIFORM latex [Latex] Allergy Mild RASH Verified 10/20/21 13:26 theophylline AdvReac Intermediate TACHYCARDIA Verified 10/20/21 13:26 TEGADERM Allergy Intermediate SKIN TEARS Uncoded 10/20/21 13:26 From COMPAZINE AdvReac Severe SEIZURES Uncoded 10/20/21 13:26 Home Medications Medication Instructions Recorded Confirmed Last Taken Type hydrochlorothiazide 12.5 mg capsule 12.5 mg PO DAILY 05/09/20 10/20/21 Unknown History hydroxyzine HCl 25 mg tablet 50 mg PO BEDTIME tab 06/04/20 10/20/21 Unknown History ropinirole 1 mg tablet 1 mg PO BEDTIME 10/28/20 10/20/21 Unknown History pramipexole 0.25 mg tablet 1 tab DAILY 10/20/21 10/20/21 Unknown History sertraline 100 mg tablet 1 tab PO BEDTIME 10/20/21 10/20/21 Unknown History tizanidine 4 mg tablet 1 tab PO BEDTIME 10/20/21 10/20/21 Unknown History Exam Height,Weight and Vital Signs: Height 5 ft 3 in Weight 69.853 kg Vital Signs Temp Pulse Resp BP Pulse Ox 11/16/21 06:19 96.9 F 77 16 106/67 95 Pertinent Lab Results Pertinent Lab Results: Laboratory Tests 06/14/21 06/14/21 02:32 02:32 WBC 12.7 H Hgb 12.9 Hct 39.1 Plt Count 206 Sodium 141 Potassium 3.4 D Chloride 106 Carbon Dioxide 27 BUN 15 Creatinine 0.89 Lab Results 11/16/21 Range/Units 06:22 POC Glucose 135 H (60-115) mg/dL Airway Mallampati Class: II TM Dist: >3cm Neck ROM: Full Denture: Upper Partial: Lower Heart: RRR Lungs: CTAB Assessment and Plan Assessment Anesthesia Assessment: Anesthesia Plan Discussed Final Anesthetic Review NPO: Yes ASA Class: III Final Preanesthetic Review: No Changes in Pt Med Stat, Meds/Allgs Chart Reviewed, Consent Obtained/Reviewed and Anes Risks/Benef Reviewed Patient Risk: Intermediate Procedure Risk: Low Assessment/Block/Sedation in SS: Assess/Block/Sedation-SS Anesthetic Plan Anesthetic Plan: GA Disposition: Standard PACU
[2021-11-16] VITALS (7 sets, daily range): BP systolic 106–133; BP diastolic 67–78; PULSE 72–85; RESP 14–17; TEMP 36.1–36.4; O2SAT 94–98
[2021-11-16 06:27] LABS: Glucose, Whole Blood 135 mg/dL (60-115)
[2021-11-16] MEDS: Lactated Ringers 1,000 ML 100 ML IVCONT (06:28)
--- NOTE | 2021-11-16 07:41 | MHC.SHP ---
Pre-Procedural Eval Section A Date of Service: 11/16/21 The patient is an INPATIENT: No Changes since office visit: No Cold of Flu in the past 2 weeks, No New Medical Problems, No Changes in Medication and No Patient answered all questions The History & Physical has been completed within 30 days and I have reviewed it.: Yes Section B Chief Complaint: carpal tunnel Allergies: Allergies Allergy/AdvReac Type Severity Reaction Status Date / Time Penicillins Allergy Intermediate HIVES Verified 10/20/21 13:26 sulfamethoxazole Allergy Intermediate BLISTERS- Verified 10/20/21 13:26 [From BACTRIM] DELGADO - NERVE ENDINGS IN HAND/ERYTHEMA MULTIFORM trimethoprim [From BACTRIM] Allergy Intermediate BLISTERS- Verified 10/20/21 13:26 DELGADO - NERVE ENDINGS IN HAND/ERYTHEMA MULTIFORM latex [Latex] Allergy Mild RASH Verified 10/20/21 13:26 theophylline AdvReac Intermediate TACHYCARDIA Verified 10/20/21 13:26 TEGADERM Allergy Intermediate SKIN TEARS Uncoded 10/20/21 13:26 From COMPAZINE AdvReac Severe SEIZURES Uncoded 10/20/21 13:26 Plan I have reviewed the history and physical and performed a pertinent physical examination on my patient. No changes have occurred unless specified.
--- NOTE | 2021-11-16 09:01 | W.PM.OPN ---
Operative Note Operative Note Date of Service: 11/16/21 Narrative: Preop diagnosis: 1. recurrent left Carpal tunnel syndrome Postop diagnosis: same Procedure: 1. repeat left Carpal tunnel release Surgeon: Jessy Bautista MD Anesthesia: local block using 1% lidocaine with epinephrine Findings: Thickened transverse carpal ligament. EBL: Less than 5 mL Specimens: None Complications: None Disposition: Brought to recovery room in stable condition Plan: Follow-up for 10-14 days for wound check and suture removal Indications: The patient is 61 years old, with recurrent left carpal tunnel syndrome that has been unresponsive to nonoperative management. The risks and benefits of operative treatment including but not limited to risk of damage to blood vessels, nerves, tendons, infection, persistent pain, persistent symptoms, or possible need for additional surgery were discussed with the patient and the patient wishes to proceed with surgery. Procedure: Once consent was obtained a local block was performed using a combination of 1% lidocaine with epinephrine. The patient was then brought back to the operating suite and placed on the operative table in supine position. A tourniquet was applied to the proximal aspect of the left upper extremity and the limb was prepped and draped in a standard surgical fashion. Once assured that we had a good block, a 1.5 cm longitudinal incision was made centered over the carpal tunnel and extended in a zigzag fashion over the distal wrist crease directly over her previous skin incision. The incision was made through the skin to the subcutaneous tissues using a #15 blade. Dissection was made down to the level of the palmaris longus tendon. The tendon was then incised longitudinally revealing to us our median nerve just beneath it. The median nerve was then protected as we proceeded in a proximal to distal direction releasing the palmar fascia and scar tissue from over the median nerve through the carpal tunnel and into the palm. This was done using a #15 blade, then using tenotomy scissors under direct visualization. Care was taken to look for and protect the motor branch of the median nerve when seen in this area. Once satisfied with our carpal tunnel release the wound was copiously irrigated with normal saline and hemostasis was obtained with a brief period of local pressure. The skin edges were reapproximated with some 5.0 nylon suture material and a sterile dressing was applied. The patient appears to have tolerated the procedure well and with no complications. All digits were well vascularized at the conclusion of the case.
== END 2021-11-16 10:14 | disposition home or self-care (01) ==
PROVIDERS: PCP Student in an Organized Health Care Education/Training Program; Visit Provider Orthopaedic Surgery
PROC: (CPT 64721; principal; 2021-11-16 07:30)
DX: G56.02 Carpal tunnel syndrome, left upper limb (principal); M25.642 Stiffness of left hand, not elsewhere classified; R20.0 Anesthesia of skin; J45.909 Unspecified asthma, uncomplicated; E11.9 Type 2 diabetes mellitus without complications; E04.2 Nontoxic multinodular goiter; Z79.899 Other long term (current) drug therapy; Z79.84 Long term (current) use of oral hypoglycemic drugs; Z88.0 Allergy status to penicillin; Z88.2 Allergy status to sulfonamides; Z88.8 Allergy status to other drugs, medicaments and biological substances; Z91.040 Latex allergy status; Z98.84 Bariatric surgery status; F17.210 Nicotine dependence, cigarettes, uncomplicated
CPT/HCPCS: 64721; 82947; J0171; J2250; J2405; J3010

== ENCOUNTER 2021-11-17 15:31 | Emergency (ER) | payer MEDICAID, SELFPAY | END 2021-11-17 17:55 | disposition left against medical advice (07) | PROVIDERS: Emergency Provider Emergency Medicine; PCP Student in an Organized Health Care Education/Training Program | DX: R05.9 Cough, unspecified (principal) ==

== ENCOUNTER → 2021-12-01 09:35 | Outpatient (BNVA) | payer MEDICAID, SELFPAY | PROVIDERS: PCP Student in an Organized Health Care Education/Training Program; Visit Provider Orthopaedic Surgery | DX: Z47.89 Encounter for other orthopedic aftercare (principal); M25.642 Stiffness of left hand, not elsewhere classified; M65.332 Trigger finger, left middle finger; M65.342 Trigger finger, left ring finger; G56.02 Carpal tunnel syndrome, left upper limb; G56.22 Lesion of ulnar nerve, left upper limb; Z86.69 Personal history of other diseases of the nervous system and sense organs | CPT/HCPCS: 99212 ==

== ENCOUNTER 2021-12-12 23:08 | Emergency (ER) | payer MEDICAID, SELFPAY ==
[2021-12-12 23:31] VITALS: BP 123/74; PULSE 88; RESP 18; TEMP 36.8; O2SAT 98; BMI 27.7
[2021-12-12 23:44] LABS: MANUAL DIFF FLAG NO
[2021-12-12 23:47] LABS: Basophils Percent Auto 0.2 % (0-2); Eosinophils Absolute Auto 0.1 X10*3/uL (0.0-0.4); Eosinophils Percent Auto 1.1 % (0-4); Hematocrit 38.7 % (37.0-47.0); Imm Gran Abs Auto 0.05 X10*3/uL (0.00-0.03); Imm Gran Pct Auto 0.4 % (0.0-0.4); Lymphocytes Absolute Auto 2.6 X10*3/uL (1.2-4.9); Lymphocytes Percent Auto 22.6 % (20-40); Mean Corpuscular HGB Conc 33.6 g/dl (31.0-35.0); Mean Corpuscular Hemoglobin 28.6 pg (27.0-33.0); Mean Corpuscular Volume 85.1 fL (80.0-98.0); Mean Platelet Volume 9.5 fL (9.4-12.3); Monocytes Absolute Auto 0.6 X10*3/uL (0.1-1.2); Monocytes Percent Auto 5.4 % (2-11); Neutrophils Percent Auto 70.3 % (45-73); Platelet Count 220 X10*3/uL (160-400); Red Blood Count 4.55 X10*6/uL (4.20-5.50); Red Cell Distribution Width 12.7 % (11.0-16.0); White Blood Count 11.5 X10*3/uL (4.8-10.8)
[2021-12-13 00:06] LABS: Alanine Aminotransferase 20 U/L (0-31); Albumin Level 4.1 g/dL (3.5-5.0); Alkaline Phosphatase 87 U/L (39-117); Anion Gap 12 (12-20); Aspartate Amino Transferase 14 U/L (5-31); Bilirubin Total 0.2 mg/dL (0.0-1.0); Blood Urea Nitrogen 15 mg/dL (9-16); Calcium 9.4 mg/dL (8.4-10.2); Carbon Dioxide 28 mmol/L (22-29); Chloride 103 mmol/L (96-108); Creatinine Clr Calc Pharmacy 66.5; Estimated Glomerular Filt Rate > 60; Glucose Random 157 mg/dL (60-115); Potassium 3.6 mmol/L (3.3-5.1); Sodium 139 mmol/L (135-145); Total Protein 6.7 g/dL (6.5-8.0)
--- NOTE | 2021-12-13 00:41 | ED_ITS ---
HPI - Skin/Abscess/Foreign Bdy General Chief complaint: Skin/Abscess/Foreign Body Stated complaint: Abscess Source: patient Mode of arrival: ambulatory Limitations: no limitations History of Present Illness HPI narrative: 61-year-old female presents with left labial abscess. States that she has had abscesses since age 14 and has had multiple surgeries on different areas of her body to remove these abscesses. Her last surgery on her labia was approximately [address] Zambrano. complaint: abscess/boil Onset (ago): day(s) Tetanus up to date: yes Location: genitals Severity: similar to previous episodes Severity scale (1-10): 8 Quality: burning and aching Pain Consistency: constant Relieving factors: none Exacerbating factors: palpation and movement Context: none Associated symptoms: denies other symptoms Treatments prior to arrival: attempted to drain pus at home Related Data Home Medications Medication Instructions Recorded Confirmed hydrochlorothiazide 12.5 mg capsule 12.5 mg PO DAILY 05/09/20 10/20/21 hydroxyzine HCl 25 mg tablet 50 mg PO BEDTIME 06/04/20 10/20/21 ropinirole 1 mg tablet 1 mg PO BEDTIME 10/28/20 10/20/21 pramipexole 0.25 mg tablet 1 tab DAILY 10/20/21 10/20/21 sertraline 100 mg tablet 1 tab PO BEDTIME 10/20/21 10/20/21 tizanidine 4 mg tablet 1 tab PO BEDTIME 10/20/21 10/20/21 Previous Rx's Medication Instructions Recorded ondansetron HCl 4 mg tablet 4 mg PO Q8H PRN nausea and 05/09/20 vomiting #60 tabs sucralfate 1 gram tablet (Carafate) 1 g PO BID #60 tabs 06/04/20 cholecalciferol (vitamin D3) 50 50 mcg PO DAILY #30 caps 12/15/20 mcg (2,000 unit) capsule acarbose 25 mg tablet 25 mg PO TID 30 days #90 tabs 12/31/20 metformin 500 mg tablet,extended 500 mg PO DAILY 30 days #30 tabs 12/31/20 release 24 hr cyclobenzaprine 10 mg tablet 10 mg PO Q8H #20 tabs 03/01/21 tramadol 50 mg tablet 50 mg PO Q6H PRN pain #20 tabs 03/01/21 pantoprazole 40 mg tablet,delayed 40 mg PO DAILY #60 tabs 04/06/21 release oxycodone 5 mg tablet 5 mg PO Q4-6H PRN pain #7 tabs 04/09/21 albuterol sulfate 90 mcg/actuation 2 puff inhalation Q4-6H PRN 06/21/21 aerosol inhaler shortness of breath or wheezing #6.7 grams benzonatate 200 mg capsule 200 mg PO TID PRN cough #20 caps 06/21/21 fluticasone propionate 50 2 spray intranasal DAILY #16 grams 06/21/21 mcg/actuation nasal spray,suspension (Flonase Allergy Relief) blood sugar diagnostic (FreeStyle #150 strips 08/21/21 Lite Strips) blood-glucose meter (FreeStyle #1 ea 08/21/21 Lite Meter) chlorhexidine gluconate 4 % 1 appl topical .COMPLEX 20 days 09/04/21 topical liquid (Hibiclens) #237 mL oxycodone 5 mg tablet 5 mg PO Q6H PRN pain (scale score 11/03/21 7-10) #7 tabs hydrocodone 5 mg-acetaminophen 325 1 tab PO Q4-6H PRN pain #5 tabs 11/16/21 mg tablet doxycycline monohydrate 100 mg 100 mg PO BID 10 days #20 tabs 12/13/21 tablet oxycodone 5 mg tablet 5 mg PO Q4H PRN pain 3 days #10 12/13/21 tabs Allergies Allergy/AdvReac Type Severity Reaction Status Date / Time Penicillins Allergy Intermediate HIVES Verified 12/01/21 10:21 sulfamethoxazole Allergy Intermediate BLISTERS- Verified 12/01/21 10:21 [From BACTRIM] DELGADO - NERVE ENDINGS IN HAND/ERYTHEMA MULTIFORM trimethoprim [From BACTRIM] Allergy Intermediate BLISTERS- Verified 12/01/21 10:21 DELGADO - NERVE ENDINGS IN HAND/ERYTHEMA MULTIFORM latex [Latex] Allergy Mild RASH Verified 12/01/21 10:21 theophylline AdvReac Intermediate TACHYCARDIA Verified 12/01/21 10:21 TEGADERM Allergy Intermediate SKIN TEARS Uncoded 12/01/21 10:21 From COMPAZINE AdvReac Severe SEIZURES Uncoded 12/01/21 10:21 Review of Systems Review of Systems: Constitutional: No Fever, No Chills ENT/Mouth: No Ear Pain, No Hoarseness, No sore throat Eyes: No Eye Pain, No Swelling, No Redness, No Foreign Body Cardiovascular: No Chest Pain, No SOB Respiratory: No Cough, No Dyspnea Gastrointestinal: No Nausea, No Vomiting, No Diarrhea, No abdominal Pain Genitourinary: No Dysuria, No Hematuria Musculoskeletal: No joint pain, No Myalgias, No Joint Swelling Skin: Positive left labial abscess, No Skin lacerations, No rash Neuro: No Weakness, No Numbness, No Paresthesias, No Loss of Consciousness, No Dizziness, No Headache Psych: No Anxiety/Panic, No Depression Heme/Lymph: no easy bruising, no Lymphadenopathy Endocrine: No Polyuria, No Polydipsia Yes all other systems are reviewed and are negative PMFSH Past Medical History Attestation statement: The following information was validated with the patient. Source: old records reviewed Medical History Anastomotic ulcer Anxiety Asthma Borderline diabetes Depression Diabetes type 2, controlled DVT (deep venous thrombosis) Dyslipidemia GERD (gastroesophageal reflux disease) High cholesterol History of restless legs syndrome Non-toxic multinodular goiter Surgical History History of excision of mass (10/26/21) History of hysterectomy History of tooth extraction Hx of esophagogastroduodenoscopy Hx of hand surgery S/P gastric bypass S/P trigger finger release Family History Family History Mother Diabetes mellitus CHF (congestive heart failure) Kidney failure Cervical cancer Brother No problems noted. Brother No problems noted. Social History Social History Are you a primary child care center assistant director to a significant other at home: No Do you presently have visiting nurse or other home services: No Alcohol intake: never Patient Tobacco Use Status: Current someday Tobacco user Tobacco use type: Cigarette Cigarette Packs Per Day: 0 Cigarettes Per Day: 3 Years Smoked: 30 Advance Directives: No Physical Exam Vital Signs: Vital Signs: Last Vital Signs Temp 98.3 F 12/12/21 23:31 Pulse 88 12/12/21 23:31 Resp 18 06/11/22 23:31 BP 123/74 12/12/21 23:31 Pulse Ox 98 12/12/21 23:31 O2 Del Method 12/12/21 23:31 BMI result Body Mass Index 27.7 Appearance: Alert. Oriented X3. Moderate distress. Eyes: Pupils equal, round and reactive to light. ENT: Pharynx normal. Neck: Normal inspection. Neck supple. CVS: Normal heart rate and rhythm. Pulses normal. Respiratory: No respiratory distress. Breath sounds normal. Abdomen: Soft and nontender. Genitourinary: Left labial abscess approximately 3 cm in diameter. Skin: Skin warm and dry. Normal skin color. Normal skin turgor. Extremities: No lower extremity edema. Gait well-balanced well coordinated. Neuro: No motor deficit. No sensory deficit. Cranial nerves 2-12 intact. Course Course Course Narrative: 61-year-old female presents with left labial abscess. Patient does get recurrent abscesses, has had these abscesses since age 14. Has had multiple surgical revisions in multiple areas of her body. Patient does not describe any fevers or chills. Attempted to drain the pus at home with poor effect. Last surgical procedure for labial abscess with approximately [address] Zambrano. Patient states that this is not the same area of the surgical excision. Detailed description with patient regarding plan to IN D left labial abscess. Patient agrees to plan. A review of records indicates that this patient has had multiple operative I and D's for hidradenitis suppurativa and epidermal inclusion cysts. 01:23 left labia I&D, incised with 11 blade. Approximately 0.5 cm incision mad e. Small amount of purulent drainage expressed. Pocket was not large enough for packing. Multiple hard lobular areas noted that were not drainable. Culture obtained and sent. 5 mL of lidocaine 1% for local anesthetic. Patient tolerated procedure well but experienced pain. Plan is to have patient follow- up with Dr. Zambrano. Will give prescription for pain management and doxycycline. Patient verbalized understanding of and agrees to plan of care to discharge home. Verbalized understanding of signs and symptoms indicating need for emergent intervention MDM - Skin/Abscess/Foreign Bdy Differential Diagnosis Differential diagnosis: Likely abscess of skin or subcutaneous tissue Medical Records Attestation: I reviewed the patient's medical records. Lab Data Attestation: I reviewed the patient's lab results. Result diagrams: 12/12/21 23:35 12/12/21 23:35 Labs: Lab Results 12/12/21 12/12/21 Range/Units 23:35 23:35 WBC 11.5 H (4.8-10.8) X10*3/uL RBC 4.55 (4.20-5.50) X10*6/uL Hgb 13.0 (12.0-16.0) g/dl Hct 38.7 (37.0-47.0) % MCV 85.1 (80.0-98.0) fL MCH 28.6 (27.0-33.0) pg MCHC 33.6 (31.0-35.0) g/dl RDW 12.7 (11.0-16.0) % Plt Count 220 (160-400) X10*3/uL MPV 9.5 (9.4-12.3) fL Immature Gran % (Auto) 0.4 (0.0-0.4) % Neut % (Auto) 70.3 (45-73) % Lymph % (Auto) 22.6 (20-40) % Bertie % (Auto) 5.4 (2-11) % Eos % (Auto) 1.1 (0-4) % Baso % (Auto) 0.2 (0-2) % Lymph # (Auto) 2.6 (1.2-4.9) X10*3/uL Bertie # (Auto) 0.6 (0.1-1.2) X10*3/uL Eos # (Auto) 0.1 (0.0-0.4) X10*3/uL Baso # (Auto) 0.0 (0.0-0.2) X10*3/uL Abs Immat Gran (auto) 0.05 H (0.00-0.03) X10*3/uL Absolute Neuts (auto) 8.0 (2.0-8.3) x10*3/uL Absolute Nucleated RBC 0.000 (0.0-0.012) X10*3/uL Nucleated RBC % (auto) 0.0 (0.0-0.2) /100WBC Sodium 139 (135-145) mmol/L Potassium 3.6 (3.3-5.1) mmol/L Chloride 103 (96-108) mmol/L Carbon Dioxide 28 (22-29) mmol/L Anion Gap 12 (12-20) BUN 15 (9-16) mg/dL Creatinine 0.86 (0.5-1.4) mg/dL Estim Creat Clear Calc 66.5 Estimated GFR > 60 Random Glucose 157 H (60-115) mg/dL Calcium 9.4 (8.4-10.2) mg/dL Total Bilirubin 0.2 (0.0-1.0) mg/dL AST 14 D (5-31) U/L ALT 20 (0-31) U/L Alkaline Phosphatase 87 (39-117) U/L Total Protein 6.7 (6.5-8.0) g/dL Albumin 4.1 (3.5-5.0) g/dL Procedures Abscess I/D Site: other (Left labia) Side (if applicable): left Local Anesthetic: lidocaine 1% Amount of anesthesia used (mL): 5 Technique: incised with blade Amount of fluid expressed (mL): 2 Sent for culture/gram staining?: Yes Irrigation: No Packing used?: none Complications: pain Discharge Plan Discharge Clinical Impression: Abscess of skin or subcutaneous tissue, Encounter for incision and drainage procedure Patient Disposition: Home, Self-Care Instructions: Abscess Incision and Drainage (DC) Additional Instructions: You were evaluated for labial abscess. We incised and drained the left labia. Please follow-up with Dr. Zambrano on Tuesday. Call and request an appointment for evaluation for surgical I&D. I prescribed oxycodone for pain management. This medication is narcotic and has high risk for addiction and abuse. Do not drive or operate machinery while taking this medication. This medication can delay reaction time, increased risk for falls, cause constipation, and cause drowsiness. Use MiraLax daily to help soften stools. I prescribed doxycycline 100 mg every 12 hours for the next 10 days. This medication needs to be taken with food as this medication can cause stomach upset. Do not expose yourself to [place] while taking this medication. You will have a significant skin reaction. Thank you for choosing this emergency department for evaluation. Please follow-up with primary care physician as needed. Return to the emergency department for any new, concerning, or worsening symptoms. Prescriptions: New doxycycline monohydrate 100 mg tablet 100 mg PO BID 10 Days Qty: 20 0RF oxycodone 5 mg tablet 5 mg PO Q4H PRN (Reason: pain) 3 Days Qty: 10 0RF Rx Instructions: Partial Fill upon patient request. No Action cholecalciferol (vitamin D3) 50 mcg (2,000 unit) capsule 50 mcg PO DAILY Qty: 30 11RF pantoprazole 40 mg tablet,delayed release (DR/EC) 40 mg PO DAILY Qty: 60 6RF (DME) FreeStyle Lite Strips Strip See Rx Instructions .ROUTE .COMPLEX Qty: 150 0RF Dose Instruction: USE TO TEST BLOOD SUGAR TWICE DAILY Rx Instructions: USE TO TEST BLOOD SUGAR TWICE DAILY cyclobenzaprine 10 mg tablet 10 mg PO Q8H Qty: 20 0RF tramadol 50 mg tablet 50 mg PO Q6H PRN (Reason: pain) Qty: 20 0RF hydroxyzine HCl 25 mg tablet 50 mg PO BEDTIME oxycodone 5 mg tablet 5 mg PO Q4-6H PRN (Reason: pain) Qty: 7 0RF Rx Instructions: Patient may request fewer tablets than prescribed sertraline 100 mg tablet 1 tab PO BEDTIME pramipexole 0.25 mg tablet 1 tab DAILY tizanidine 4 mg tablet 1 tab PO BEDTIME hydrocodone-acetaminophen 5-325 mg tablet 1 tab PO Q4-6H PRN (Reason: pain) Qty: 5 0RF benzonatate 200 mg capsule 200 mg PO TID PRN (Reason: cough) Qty: 20 0RF albuterol sulfate 90 mcg/actuation HFA aerosol inhaler 2 puff inhalation Q4-6H PRN (Reason: shortness of breath or wheezing) Qty: 6.7 0RF fluticasone propionate [Flonase Allergy Relief] 50 mcg/actuation spray,suspension 2 spray intranasal DAILY Qty: 16 0RF Rx Instructions: administer into each nostril sucralfate [Carafate] 1 gram tablet 1 g PO BID Qty: 60 6RF metformin 500 mg tablet extended release 24 hr 500 mg PO DAILY 30 Days Qty: 30 5RF acarbose 25 mg tablet 25 mg PO TID 30 Days Qty: 90 4RF hydrochlorothiazide 12.5 mg capsule 12.5 mg PO DAILY ondansetron HCl 4 mg tablet 4 mg PO Q8H PRN (Reason: nausea and vomiting) Qty: 60 4RF ropinirole 1 mg tablet 1 mg PO BEDTIME Rx Instructions: administer 1-3 hours before bedtime chlorhexidine gluconate [Hibiclens] 4 % liquid 1 appl topical .COMPLEX 20 Days Qty: 237 4RF Rx Instructions: 1 appl topical 3-4 times weekly; lather all skin in shower and leave on for one minute before washing off. (DME) blood-glucose meter [FreeStyle Lite Meter] Kit See Rx Instructions .Route Qty: 1 0RF Rx Instructions: As directed test blood sugar two times a day oxycodone 5 mg tablet 5 mg PO Q6H PRN (Reason: pain (scale score 7-10)) Qty: 7 0RF Referrals: Flaco Zambrano MD [Physician] - (Left labial I&D)
[2021-12-13] MEDS: Lidocaine HCl 1 % MPF 5 ML VIAL SUBCUT (00:52)
[2021-12-13] MEDS: oxyCODONE HCl Immed Release 5 MG TABLET PO ×2 (00:55→01:45)
[2021-12-13 01:47] VITALS: BP 124/76; PULSE 63; RESP 14; O2SAT 98
== END 2021-12-13 01:57 | disposition home or self-care (01) ==
PROVIDERS: Emergency Provider Internal Medicine; PCP Student in an Organized Health Care Education/Training Program
DX: N76.4 Abscess of vulva (principal); E11.9 Type 2 diabetes mellitus without complications; J45.909 Unspecified asthma, uncomplicated; Z86.718 Personal history of other venous thrombosis and embolism
CPT/HCPCS: 36415; 56405; 80053; 85025; 87071; 87205; 99284

== ENCOUNTER → 2021-12-18 10:57 | Outpatient (BNVA) | payer MEDICAID, SELFPAY | PROVIDERS: PCP Student in an Organized Health Care Education/Training Program; Visit Provider Surgery | DX: L02.91 Cutaneous abscess, unspecified (principal); L72.0 Epidermal cyst; L73.2 Hidradenitis suppurativa | CPT/HCPCS: 99212 ==

== ENCOUNTER 2021-12-23 10:21 | Day surgery (SDC) | payer MEDICAID, SELFPAY ==
--- NOTE | 2021-12-22 12:13 | HO.ANESPROP2 ---
Documented by User: Daily Aburto NP 12/22/21 12:19 HPI - Anesthesia Eval Consult details Narrative: 61yo F for Left Excision Cyst of labia s/p groin cyst excision 10/2021 with [facility] 4 *Multiple Allergies* Many SSS visits PMFSH Active Problems Active Problems: All Active Problems (Updated 12/18/21 @ 13:35 by Flaco Zambrano MD) Abscess (Acute) Overweight (BMI 25.0-29.9) (Acute) Epidermal inclusion cyst (Acute) Trigger finger, left middle finger (Acute) Trigger finger, left ring finger (Acute) Emesis (Acute) Stiffness of left hand joint (Acute) Hidradenitis suppurativa (Acute) Left hand pain (Acute) Numbness and tingling in left hand (Acute) Contusion of right ankle (Acute) Carpal tunnel syndrome of left wrist (Acute) Cubital tunnel syndrome on left (Acute) Dyslipidemia (Acute) Non-toxic multinodular goiter (Acute) Diabetes type 2, controlled (Acute) Anastomotic ulcer (Acute) S/P gastric bypass (Acute) Borderline diabetes (Acute) Past Medical History Medical History Anxiety Asthma Depression DVT (deep venous thrombosis) GERD (gastroesophageal reflux disease) High cholesterol History of restless legs syndrome Family History Family History Mother Diabetes mellitus CHF (congestive heart failure) Kidney failure Cervical cancer Brother No problems noted. Brother No problems noted. Family history of problems with anesthesia: No Surgical History Surgical History History of excision of mass (10/26/21) History of hysterectomy History of tooth extraction Hx of esophagogastroduodenoscopy Hx of hand surgery S/P trigger finger release History of Problems with Anesthesia: No Social History Social History Are you a primary career representative to a significant other at home: No Do you presently have visiting nurse or other home services: No Alcohol intake: never Patient Tobacco Use Status: Current someday Tobacco user Tobacco use type: Cigarette Cigarette Packs Per Day: 0 Cigarettes Per Day: 1 Years Smoked: 30 Smoked in Last 30 Days: Yes Use of substances other than those prescribed or required for medical reasons: No Are you DNR?: No Advance Directives: No Advance Directives Information Provided: Yes Meds Allergies Allergy/AdvReac Type Severity Reaction Status Date / Time Penicillins Allergy Intermediate HIVES Verified 12/18/21 11:04 sulfamethoxazole Allergy Intermediate BLISTERS- Verified 12/18/21 11:04 [From BACTRIM] DELGADO - NERVE ENDINGS IN HAND/ERYTHEMA MULTIFORM trimethoprim [From BACTRIM] Allergy Intermediate BLISTERS- Verified 12/18/21 11:04 DELGADO - NERVE ENDINGS IN HAND/ERYTHEMA MULTIFORM latex [Latex] Allergy Mild RASH Verified 12/18/21 11:04 theophylline AdvReac Intermediate TACHYCARDIA Verified 12/18/21 11:04 TEGADERM Allergy Intermediate SKIN TEARS Uncoded 12/18/21 11:04 From COMPAZINE AdvReac Severe SEIZURES Uncoded 12/18/21 11:04 Home Medications Medication Instructions Recorded Confirmed Last Taken Type hydrochlorothiazide 12.5 mg capsule 12.5 mg PO DAILY 05/09/20 10/20/21 Unknown History hydroxyzine HCl 25 mg tablet 50 mg PO BEDTIME 06/04/20 10/20/21 Unknown History ropinirole 1 mg tablet 1 mg PO BEDTIME 10/28/20 10/20/21 Unknown History pramipexole 0.25 mg tablet 1 tab DAILY 10/20/21 10/20/21 Unknown History sertraline 100 mg tablet 1 tab PO BEDTIME 10/20/21 10/20/21 Unknown History tizanidine 4 mg tablet 1 tab PO BEDTIME 10/20/21 10/20/21 Unknown History Exam Exam Date and Time: December 22, 2021 1213 Pertinent Lab Results Pertinent Lab Results: Laboratory Tests 12/12/21 12/12/21 23:35 23:35 WBC 11.5 H Hgb 13.0 Hct 38.7 Plt Count 220 Sodium 139 Potassium 3.6 Chloride 103 Carbon Dioxide 28 BUN 15 Creatinine 0.86 Narrative Narrative: EKG 2020 Vent. Rate : 074 BPM ? ? Atrial Rate : 074 BPM ?? P-R Int : 158 ms? QRS Dur : 074 ms ? ? QT Int : 366 ms ? ? ? P-R-T Axes : 011 033 032 degrees ?? QTc Int : 406 ms ? Normal sinus rhythm Normal ECG When compared with ECG of 06-MAR-2020 20:20, No significant change was found Assessment and Plan Assessment Anesthesia Assessment: Chart Reviewed Final Anesthetic Review Family History of Problems with Anesthesia: No History of Problems with Anesthesia: No Documented by User: Eagle Carson MD 12/23/21 10:45 PMFSH Past Medical History Medical History Anxiety Asthma Depression DVT (deep venous thrombosis) GERD (gastroesophageal reflux disease) High cholesterol History of restless legs syndrome Family History Family History Mother Diabetes mellitus CHF (congestive heart failure) Kidney failure Cervical cancer Brother No problems noted. Brother No problems noted. Surgical History Surgical History History of excision of mass (10/26/21) History of hysterectomy History of tooth extraction Hx of esophagogastroduodenoscopy Hx of hand surgery S/P trigger finger release Social History Social History Are you a primary career representative to a significant other at home: No Do you presently have visiting nurse or other home services: No Alcohol intake: never Patient Tobacco Use Status: Current someday Tobacco user Tobacco use type: Cigarette Cigarette Packs Per Day: 0 Cigarettes Per Day: 1 Years Smoked: 30 Smoked in Last 30 Days: Yes Use of substances other than those prescribed or required for medical reasons: No Are you DNR?: No Advance Directives: No Advance Directives Information Provided: Yes Meds Allergies Allergy/AdvReac Type Severity Reaction Status Date / Time Penicillins Allergy Intermediate HIVES Verified 12/18/21 11:04 sulfamethoxazole Allergy Intermediate BLISTERS- Verified 12/18/21 11:04 [From BACTRIM] DELGADO - NERVE ENDINGS IN HAND/ERYTHEMA MULTIFORM trimethoprim [From BACTRIM] Allergy Intermediate BLISTERS- Verified 12/18/21 11:04 DELGADO - NERVE ENDINGS IN HAND/ERYTHEMA MULTIFORM latex [Latex] Allergy Mild RASH Verified 12/18/21 11:04 theophylline AdvReac Intermediate TACHYCARDIA Verified 12/18/21 11:04 TEGADERM Allergy Intermediate SKIN TEARS Uncoded 12/18/21 11:04 From COMPAZINE AdvReac Severe SEIZURES Uncoded 12/18/21 11:04 Home Medications Medication Instructions Recorded Confirmed Last Taken Type hydrochlorothiazide 12.5 mg capsule 12.5 mg PO DAILY 05/09/20 10/20/21 Unknown History hydroxyzine HCl 25 mg tablet 50 mg PO BEDTIME 06/04/20 10/20/21 Unknown History ropinirole 1 mg tablet 1 mg PO BEDTIME 10/28/20 10/20/21 Unknown History pramipexole 0.25 mg tablet 1 tab DAILY 10/20/21 10/20/21 Unknown History sertraline 100 mg tablet 1 tab PO BEDTIME 10/20/21 10/20/21 Unknown History tizanidine 4 mg tablet 1 tab PO BEDTIME 10/20/21 10/20/21 Unknown History Exam Airway Mallampati Class: II TM Dist: >3cm Neck ROM: Full Denture: Upper Assessment and Plan Assessment Anesthesia Assessment: Anesthesia Plan Discussed Final Anesthetic Review NPO: Yes ASA Class: II Final Preanesthetic Review: No Changes in Pt Med Stat, Meds/Allgs Chart Reviewed, Consent Obtained/Reviewed and Anes Risks/Benef Reviewed Patient Risk: Low Procedure Risk: Low Anesthetic Plan Anesthetic Plan: GA Disposition: Standard PACU
[2021-12-23] VITALS (10 sets, daily range): BP systolic 121–132; BP diastolic 71–79; PULSE 64–79; RESP 14–19; TEMP 36.2–36.6; O2SAT 98–100; BMI 28.0
[2021-12-23] MEDS: Lactated Ringers 1,000 ML 100 ML IVCONT (11:09)
[2021-12-23] MEDS: vancomycin HCL 1,000 MG in 0.9 % Sodium Chloride 250 ML 270 MG IV (11:10)
[2021-12-23 11:15] LABS: Glucose, Whole Blood 99 mg/dL (60-115)
--- NOTE | 2021-12-23 12:17 | P.OP_ITS ---
Operative Note Operative Note Date of Service: 12/23/21 Narrative: Preoperative diagnosis: Left labial cyst Postoperative diagnosis: same Procedure: excision of left labial cyst Surgeon: Flaco Zambrano MD Hospital Security Officer: no physician Anesthesia: general LMA Indications for procedure: 61-year-old female with history of multiple previous pubic cyst now presenting with a painful left labial cyst Operative findings: 2 enlarged infected labial cysts consistent with epidermal inclusion cysts Specimen: left labial cyst Estimated blood loss: 5 mL Complications: none Procedure details: patient was brought to the OR placed in a supine position. after administering general anesthesia the patient's pubis was prepped with Betadine and draped in a sterile fashion. A surgical time-out was called and the consent confirmed. Patient received preoperative antibiotics and Venodyne boots were in place. Local anesthesia consisting of 1.0% lidocaine with epinephrine was infiltrated around the cyst. An elliptical incision was then created with a scalpel and carried out through subcutaneous tissue and around the cyst wall. A 2nd cyst was also identified included the excision. Hemostasis was then assured using electrocautery. Specimen was passed off the table and sent to pathology for further examination. Deep subcutaneous tissue was then reapproximated using interrupted 3-0 Polysorb sutures. Skin was closed using interrupted 4-0 nylon sutures. Sterile dressings were then applied. The patient tolerated the procedure well. Sponge, instrument, and needle counts reported as correct. Patient was transferred to PACU in stable condition.
[2021-12-23] MEDS: oxyCODONE HCl Immed Release 5 MG TABLET PO (12:55)
[2021-12-23] MEDS: ondansetron HCL 4 MG/2 ML VIAL IVPUSH (12:55)
[2021-12-23] MEDS: fentaNYL citrate/PF 100 MCG/2 ML VIAL 50 MCG IVPUSH (12:58)
== END 2021-12-23 14:32 | disposition home or self-care (01) ==
PROVIDERS: PCP Student in an Organized Health Care Education/Training Program; Visit Provider Surgery
PROC: (CPT 11423; principal; 2021-12-23 12:00)
DX: N90.7 Vulvar cyst (principal); F32.A Depression, unspecified; F41.1 Generalized anxiety disorder; E11.9 Type 2 diabetes mellitus without complications; J45.909 Unspecified asthma, uncomplicated; Z79.51 Long term (current) use of inhaled steroids; Z79.84 Long term (current) use of oral hypoglycemic drugs; Z88.0 Allergy status to penicillin; Z88.2 Allergy status to sulfonamides; Z91.041 Radiographic dye allergy status; K21.9 Gastro-esophageal reflux disease without esophagitis; E78.00 Pure hypercholesterolemia, unspecified; F17.210 Nicotine dependence, cigarettes, uncomplicated; Z98.84 Bariatric surgery status
CPT/HCPCS: 11423; 12041; 82947; 88304; J1100; J1885; J2250; J2405; J3010; J3370

== ENCOUNTER → 2022-01-12 09:07 | Outpatient (BNVA) | payer MEDICAID, SELFPAY | PROVIDERS: PCP Student in an Organized Health Care Education/Training Program; Visit Provider Orthopaedic Surgery | DX: G56.22 Lesion of ulnar nerve, left upper limb (principal); G56.02 Carpal tunnel syndrome, left upper limb | CPT/HCPCS: 99212 ==

== ENCOUNTER 2022-01-22 15:14 | Outpatient (REF) | payer MEDICAID, SELFPAY ==
--- NOTE | ~2022-01-22 | MR_ITS ---
EXAMINATION: MRI OF THE LEFT ELBOW WITHOUT CONTRAST CLINICAL INFORMATION: Lesion of ulnar nerve. Patient reports fourth and fifth digit numbness. COMPARISON: None TECHNIQUE: MRI of the left elbow without contrast. FINDINGS: Neurovascular structures: Ulnar nerve well visualized and intact with normal signal intensity. No mass. Subcutaneous soft tissues: Normal. Muscles and tendons: Normal. Ligaments: Normal. Bone and articular cartilage: Radiocapitellar joint: There is cartilage heterogeneity and subchondral cystic change on the ulnar side of the joint. Capitellum intact. Overall mild Joint fluid volume normal. MR/MR elbow LT wo con IMPRESSION: Normal appearance of the ulnar nerve in the region of the elbow. Mild
== END 2022-01-22 15:15 | disposition home or self-care (01) ==
LOC: HO.MRI 15:14
PROVIDERS: Visit Provider Orthopaedic Surgery
DX: G56.22 Lesion of ulnar nerve, left upper limb (principal)
CPT/HCPCS: 73221

== ENCOUNTER 2022-02-02 08:07 | Outpatient (REF) | payer MEDICAID, SELFPAY ==
[2022-02-02 08:34] LABS: Hematocrit 40.5 % (37.0-47.0); Hemoglobin 13.6 g/dl (12.0-16.0); Mean Corpuscular HGB Conc 33.6 g/dl (31.0-35.0); Mean Corpuscular Hemoglobin 28.8 pg (27.0-33.0); Mean Corpuscular Volume 85.6 fL (80.0-98.0); Mean Platelet Volume 9.9 fL (9.4-12.3); Platelet Count 203 X10*3/uL (160-400); Red Blood Count 4.73 X10*6/uL (4.20-5.50); Red Cell Distribution Width 12.5 % (11.0-16.0); White Blood Count 6.6 X10*3/uL (4.8-10.8)
[2022-02-02 09:04] LABS: Alanine Aminotransferase 15 U/L (0-31); Alkaline Phosphatase 79 U/L (39-117); Anion Gap 13 (12-20); Aspartate Amino Transferase 16 U/L (5-31); Bilirubin Direct 0.2 mg/dL (0.0-0.5); Bilirubin Total 0.5 mg/dL (0.0-1.0); Blood Urea Nitrogen 14 mg/dL (9-16); Calcium 9.2 mg/dL (8.4-10.2); Carbon Dioxide 30 mmol/L (22-29); Chloride 102 mmol/L (96-108); Cholesterol 205 mg/dL; Estimated Glomerular Filt Rate > 60; Glucose Random 144 mg/dL (60-115); HDL Cholesterol 66 mg/dL; LDL Cholesterol Calculated 127 mg/dl; Potassium 4.4 mmol/L (3.3-5.1); Sodium 141 mmol/L (135-145); Total Protein 6.5 g/dL (6.5-8.0); Triglycerides 64 mg/dL
[2022-02-02 09:27] LABS: Thyroid Stimulating Hormone 2.35 uIU/mL (0.32-4.0); Vitamin D 25-OH Total 57.6 ng/mL (>30)
[2022-02-02 09:30] LABS: Vitamin B12 1150 pg/mL (200-900)
== END 2022-02-02 08:08 | disposition home or self-care (01) ==
LOC: HO.LAB 08:07
PROVIDERS: PCP Student in an Organized Health Care Education/Training Program; Visit Provider Student in an Organized Health Care Education/Training Program
DX: R53.82 Chronic fatigue, unspecified (principal)
CPT/HCPCS: 36415; 80048; 80061; 80076; 82306; 82607; 84443; 85027

== ENCOUNTER → 2022-02-05 09:56 | Outpatient (BNVA) | payer MEDICAID, SELFPAY | PROVIDERS: PCP Student in an Organized Health Care Education/Training Program; Visit Provider Surgery | DX: Z48.817 Encounter for surgical aftercare following surgery on the skin and subcutaneous tissue (principal); Z87.2 Personal history of diseases of the skin and subcutaneous tissue | CPT/HCPCS: 99212 ==

== ENCOUNTER 2022-02-07 21:16 | Emergency (ER) | payer MEDICAID, SELFPAY ==
[2022-02-07 22:19] VITALS: BP 127/73; PULSE 87; RESP 18; TEMP 37.2; O2SAT 97; BMI 27.4
== END 2022-02-07 23:33 | disposition left against medical advice (07) ==
PROVIDERS: Emergency Provider Emergency Medicine; PCP Student in an Organized Health Care Education/Training Program
DX: T23.002A Burn of unspecified degree of left hand, unspecified site, initial encounter (principal); T31.0 Burns involving less than 10% of body surface; X15.3XXA Contact with hot saucepan or skillet, initial encounter; Y93.G3 Activity, cooking and baking; Y92.9 Unspecified place or not applicable; Y99.9 Unspecified external cause status
CPT/HCPCS: 99281

== ENCOUNTER → 2022-02-19 09:17 | Outpatient (BNVA) | payer MEDICAID, SELFPAY | PROVIDERS: PCP Student in an Organized Health Care Education/Training Program; Visit Provider Physician Assistant Surgical | DX: E66.3 Overweight (principal); Z98.84 Bariatric surgery status; Z68.27 Body mass index [BMI] 27.0-27.9, adult | CPT/HCPCS: 99212 ==

== ENCOUNTER 2022-02-25 20:47 | Emergency (ER) | payer MEDICAID, SELFPAY ==
--- NOTE | 2022-02-25 | ECG_ITS ---
Test Reason : chest pain Blood Pressure : / mmHG Vent. Rate : 078 BPM Atrial Rate : 078 BPM P-R Int : 164 ms QRS Dur : 072 ms QT Int : 358 ms P-R-T Axes : 017 028 020 degrees QTc Int : 408 ms Normal sinus rhythm Normal ECG When compared with ECG of 28-OCT-2020 21:36, No significant change was found Referred By: Generic ED Physician Electronically Signed By:CRICKET RAINEY
--- NOTE | ~2022-02-25 | XR_ITS ---
EXAMINATION: XR CHEST CLINICAL INFORMATION: Chest pain COMPARISON: January 19, 2021 TECHNIQUE: 2 views of the chest were obtained. FINDINGS: No significant abnormality is noted involving the heart, lungs, mediastinum, bony thorax or soft tissues. XR/XR chest 2V IMPRESSION: No acute disease.
--- NOTE | ~2022-02-25 | US_ITS ---
EXAMINATION: US VENOUS ULTRASOUND WITH DOPPLER LOWER EXTREMITY, LEFT CLINICAL INFORMATION: Calf pain, swelling COMPARISON: 07/10/2013 TECHNIQUE: Ultrasound of the deep veins is performed from the hip to the calf with compression sonography and color and pulse Doppler assessment. Spectral analysis with color-flow imaging is performed. FINDINGS: There is normal venous compression and respiratory variation and augmented flow. The visualized common femoral vein, superficial femoral vein, profunda femoral vein, popliteal vein, and the trifurcation region shows no evidence of deep venous thrombosis. There is a popliteal fossa cyst measuring 3.0 x 0.7 x 1.7 cm. If the patient's symptoms persist, followup ultrasound in 5 days 7 days might be of value to exclude proximal propagation from a non-visualized calf vein. US/US venous duplex LE IMPRESSION: 1. No DVT demonstrated in the left lower extremity. 2. Popliteal fossa cyst measuring up to 3.0 cm.
[2022-02-25 21:05] VITALS: BP 124/70; PULSE 85; RESP 16; TEMP 36.8; O2SAT 95; BMI 26.5
[2022-02-25 21:25] LABS: MANUAL DIFF FLAG NO
[2022-02-25 21:31] LABS: Basophils Percent Auto 0.5 % (0-2); Eosinophils Absolute Auto 0.3 X10*3/uL (0.0-0.4); Eosinophils Percent Auto 3.4 % (0-4); Hematocrit 37.9 % (37.0-47.0); Imm Gran Abs Auto 0.02 X10*3/uL (0.00-0.03); Imm Gran Pct Auto 0.3 % (0.0-0.4); Lymphocytes Absolute Auto 2.2 X10*3/uL (1.2-4.9); Lymphocytes Percent Auto 29.4 % (20-40); Mean Corpuscular HGB Conc 34.3 g/dl (31.0-35.0); Mean Corpuscular Hemoglobin 29.6 pg (27.0-33.0); Mean Corpuscular Volume 86.3 fL (80.0-98.0); Mean Platelet Volume 9.9 fL (9.4-12.3); Monocytes Absolute Auto 0.5 X10*3/uL (0.1-1.2); Monocytes Percent Auto 6.7 % (2-11); Neutrophils Absolute Auto 4.5 x10*3/uL (2.0-8.3); Neutrophils Percent Auto 59.7 % (45-73); Platelet Count 212 X10*3/uL (160-400); Red Blood Count 4.39 X10*6/uL (4.20-5.50); Red Cell Distribution Width 12.7 % (11.0-16.0); White Blood Count 7.6 X10*3/uL (4.8-10.8)
[2022-02-25 21:50] LABS: Alanine Aminotransferase 20 U/L (0-31); Albumin Level 3.9 g/dL (3.5-5.0); Alkaline Phosphatase 82 U/L (39-117); Anion Gap 13 (12-20); Aspartate Amino Transferase 18 U/L (5-31); Bilirubin Total 0.4 mg/dL (0.0-1.0); Blood Urea Nitrogen 11 mg/dL (9-16); Calcium 8.8 mg/dL (8.4-10.2); Carbon Dioxide 27 mmol/L (22-29); Chloride 104 mmol/L (96-108); Creatinine Clr Calc Pharmacy 57.8; Estimated Glomerular Filt Rate 59; Glucose Random 114 mg/dL (60-115); Potassium 3.8 mmol/L (3.3-5.1); Sodium 140 mmol/L (135-145); Total Protein 6.3 g/dL (6.5-8.0)
[2022-02-25 21:53] LABS: Troponin-I High Sensitivity < 3.5 ng/L (<3.5-17.0)
--- NOTE | 2022-02-25 23:56 | ED.BACK ---
HPI - Back Pain/Injury General Chief Complaint: Back Pain/Injury Stated Complaint: lower back pain Time Seen by Provider: 02/25/22 23:47 Source: patient Mode of arrival: ambulatory Limitations: no limitations History of Present Illness HPI Narrative: This is a 61-year-old female history significant for diabetes type 2, left lower extremity DVT in 1994, chronic back pain currently receiving a cortisone injections, previous back surgery who presents the emergency department with complaint of low back pain localized to the left side x2 weeks. This has been radiating down her left leg into her left foot, and waking up with left calf cramping for the past 2 weeks, worsening. Patient also notes that she has been having left ankle swelling, currently on hydrochlorothiazide for lower extremity edema, usually has issues with her right lower extremity however today it is the left. She states that she has a history of chronic back issues, had a cortisone shot 3 months ago with [facility] pain management, next appointment is March 23. Denies fever, chills, bowel or bladder incontinence, saddle paresthesias Denies control, recent travel, trauma, IV drug abuse, however she has a history of cervical cancer and is an intermittent smoker. Related Data Home Medications Medication Instructions Recorded Confirmed hydrochlorothiazide 12.5 mg capsule 12.5 mg PO DAILY 05/09/20 02/19/22 hydroxyzine HCl 25 mg tablet 50 mg PO BEDTIME 06/04/20 02/19/22 ropinirole 1 mg tablet 1 mg PO BEDTIME 10/28/20 02/19/22 pramipexole 0.25 mg tablet 1 tab DAILY 10/20/21 02/19/22 sertraline 100 mg tablet 1 tab PO BEDTIME 10/20/21 02/19/22 tizanidine 4 mg tablet 1 tab PO BEDTIME 10/20/21 02/19/22 Previous Rx's Medication Instructions Recorded cholecalciferol (vitamin D3) 50 50 mcg PO DAILY #30 caps 12/15/20 mcg (2,000 unit) capsule acarbose 25 mg tablet 25 mg PO TID 30 days #90 tabs 12/31/20 metformin 500 mg tablet,extended 500 mg PO DAILY 30 days #30 tabs 12/31/20 release 24 hr cyclobenzaprine 10 mg tablet 10 mg PO Q8H #20 tabs 03/01/21 pantoprazole 40 mg tablet,delayed 40 mg PO DAILY #60 tabs 04/06/21 release albuterol sulfate 90 mcg/actuation 2 puff inhalation Q4-6H PRN 06/21/21 aerosol inhaler shortness of breath or wheezing #6.7 grams benzonatate 200 mg capsule 200 mg PO TID PRN cough #20 caps 06/21/21 fluticasone propionate 50 2 spray intranasal DAILY #16 grams 06/21/21 mcg/actuation nasal spray,suspension (Flonase Allergy Relief) blood-glucose meter (FreeStyle #1 ea 08/21/21 Lite Meter kit) chlorhexidine gluconate 4 % 1 appl topical .COMPLEX 20 days 09/04/21 topical liquid (Hibiclens) #237 mL blood sugar diagnostic (FreeStyle #150 strips 02/08/22 Lite Strips) cyclobenzaprine 10 mg tablet 10 mg PO BEDTIME PRN muscle spasm 02/26/22 #7 tabs lidocaine 5 % topical patch 1 patch topical DAILY PRN pain #15 02/26/22 ea Allergies Allergy/AdvReac Type Severity Reaction Status Date / Time Penicillins Allergy Intermediate HIVES Verified 02/19/22 09:22 sulfamethoxazole Allergy Intermediate BLISTERS- Verified 02/19/22 09:22 [From BACTRIM] DELGADO - NERVE ENDINGS IN HAND/ERYTHEMA MULTIFORM trimethoprim [From BACTRIM] Allergy Intermediate BLISTERS- Verified 02/19/22 09:22 DELGADO - NERVE ENDINGS IN HAND/ERYTHEMA MULTIFORM latex [Latex] Allergy Mild RASH Verified 02/19/22 09:22 theophylline AdvReac Intermediate TACHYCARDIA Verified 02/19/22 09:22 TEGADERM Allergy Intermediate SKIN TEARS Uncoded 02/05/22 10:06 From COMPAZINE AdvReac Severe SEIZURES Uncoded 02/05/22 10:06 Review of Systems Review of Systems: Constitutional : No Weight loss, No Fever, No Chills, No Fatigue, No Malaise ENT/Mouth : No sore throat, No Rhinorrhea Eyes: No Eye Pain, No Swelling, No Redness Cardiovascular : No Chest Pain, No SOB, No Dyspnea on Exertion, No Orthopnea, No Edema, No Palpitations Respiratory : No Cough, No Sputum, No Wheezing Gastrointestinal : No Nausea, No Vomiting, No Diarrhea, No Constipation, No abdominal Pain, No Hematochezia, No Melena Genitourinary : No Dysuria, No Urinary Frequency, No Hematuria, Musculoskeletal : No joint pain, No Myalgias, No Joint Swelling, + low back pain, + L calf pain Skin : No Skin Lesions, No rash Neuro : No Weakness, No Numbness, No Dizziness, No Headache All other systems reviewed and are negative Yes all other systems are reviewed and are negative [facility] Past Medical History Attestation statement: The following information was validated with the patient. Source: old records reviewed and nursing notes reviewed Medical History Anastomotic ulcer Anxiety Asthma Borderline diabetes Depression Diabetes type 2, controlled DVT (deep venous thrombosis) Dyslipidemia GERD (gastroesophageal reflux disease) High cholesterol History of restless legs syndrome Non-toxic multinodular goiter Surgical History History of excision of mass (10/26/21) History of hysterectomy History of tooth extraction Hx of esophagogastroduodenoscopy Hx of excision of epidermal inclusion cyst (12/25/21) Hx of hand surgery S/P gastric bypass S/P trigger finger release Family History Family History Mother Diabetes mellitus CHF (congestive heart failure) Kidney failure Cervical cancer Brother No problems noted. Brother No problems noted. 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 Oriented X3.? No acute distress.? Head: Normocephalic, atraumatic, no step-offs or deformities Eyes: Pupils equal, round and reactive to light.? ENT: Pharynx normal.? Neck: Normal inspection.? Neck supple.? CVS: Normal heart rate and rhythm.? Pulses normal.? Respiratory: No respiratory distress.? Breath sounds normal.? Abdomen: Soft and nontender.? Skin: Skin warm and dry.? Normal skin color.? Normal skin turgor.? Extremities: No lower extremity edema.? No calf ttp. 5/5 strength to bilateral upper and lower extremities. 2+ DP, AT and PT pulses equal bilateral. Back: No midline tenderness, no C-spine tenderness, full range of motion, no CVA tenderness bilaterally Neuro: Oriented X 3.? No motor deficit.? No sensory deficit. CN 2-12 intact. Patient ambulated into room w/o difficulties. Normal coordination, no saddle paresthesias. 2+ patellar DTR equal bilateral Course Reevaluation(s) Reevaluation #1: CBC within normal limits. Chemistry without acute electrolyte abnormalities requiring intervention. To note patient mentioned chest discomfort to nursing however denied this to myself. Negative troponin nonischemic EKG. Unlikely that this is ACS or PE. Chest x-ray no acute findings. ESR/CRP pending. Time: 00:00 Reevaluation #2: Inflammatory markers within normal limits, no elevated white blood cell count, again reassuring that unlikely epidural abscess. Likely lumbar radiculopathy or sciatica. Ultrasound of the left lower extremity pending. Time: 00:27 Reevaluation #3: Patient ambulating with steady gait with nursing. At this time patient will be discharged home. Advised to follow-up with pain management. Will discharge on cyclobenzaprine, Lidoderm patches. Advised to return with any new or worsening symptoms, outlined them on discharge. At this time I feel comfortable discharge Time: 01:12 MDM - Back Pain/Injury [facility] Narrative Medical decision making narrative: [id number] 61-year-old female presenting with atraumatic back pain with radiation down the left leg x2 weeks. Also complaining of left calf cramping. Physical exam benign, however patient lying on the bed comfortably in pain. Vital signs stable. Neuro intact. No midline tenderness. Likely sciatica. Unlikely epidural abscess, or cauda equina. Other differentials include muscle strains and herniated discs. Plan at this time is to order basic labs, ESR CRP, and a venous duplex of the left lower extremity Will give morphine for pain. This is atraumatic back pain, no need for imaging at this time. Medical Records Attestation: I reviewed the patient's medical records. Lab Data Result diagrams: 02/25/22 21:19 02/25/22 21:19 Labs: Lab Results 02/25/22 02/25/22 02/25/22 Range/Units 21:19 21:19 21:19 WBC 7.6 (4.8-10.8) X10*3/uL RBC 4.39 (4.20-5.50) X10*6/uL Hgb 13.0 (12.0-16.0) g/dl Hct 37.9 (37.0-47.0) % MCV 86.3 (80.0-98.0) fL MCH 29.6 (27.0-33.0) pg MCHC 34.3 (31.0-35.0) g/dl RDW 12.7 (11.0-16.0) % Plt Count 212 (160-400) X10*3/uL MPV 9.9 (9.4-12.3) fL Immature Gran % (Auto) 0.3 (0.0-0.4) % Neut % (Auto) 59.7 (45-73) % Lymph % (Auto) 29.4 (20-40) % [place] % (Auto) 6.7 (2-11) % Eos % (Auto) 3.4 (0-4) % Baso % (Auto) 0.5 (0-2) % Lymph # (Auto) 2.2 (1.2-4.9) X10*3/uL [place] # (Auto) 0.5 (0.1-1.2) X10*3/uL Eos # (Auto) 0.3 (0.0-0.4) X10*3/uL Baso # (Auto) 0.0 (0.0-0.2) X10*3/uL Abs Immat Gran (auto) 0.02 (0.00-0.03) X10*3/uL Absolute Neuts (auto) 4.5 (2.0-8.3) x10*3/uL Absolute Nucleated RBC 0.000 (0.0-0.012) X10*3/uL Nucleated RBC % (auto) 0.0 (0.0-0.2) /100WBC ESR (0-20) MM/HR Sodium 140 (135-145) mmol/L Potassium 3.8 (3.3-5.1) mmol/L Chloride 104 (96-108) mmol/L Carbon Dioxide 27 (22-29) mmol/L Anion Gap 13 (12-20) BUN 11 (9-16) mg/dL Creatinine 0.97 (0.5-1.4) mg/dL Estim Creat Clear Calc 57.8 Estimated GFR 59 Random Glucose 114 (60-115) mg/dL Calcium 8.8 (8.4-10.2) mg/dL Total Bilirubin 0.4 (0.0-1.0) mg/dL AST 18 (5-31) U/L ALT 20 (0-31) U/L Alkaline Phosphatase 82 (39-117) U/L Troponin I High Sens < 3.5 (<3.5-17.0) ng/L C-Reactive Protein 0.05 (< or = 0.50) mg/dL Total Protein 6.3 L (6.5-8.0) g/dL Albumin 3.9 (3.5-5.0) g/dL 02/25/22 Range/Units 21:19 WBC (4.8-10.8) X10*3/uL RBC (4.20-5.50) X10*6/uL Hgb (12.0-16.0) g/dl Hct (37.0-47.0) % MCV (80.0-98.0) fL MCH (27.0-33.0) pg MCHC (31.0-35.0) g/dl RDW (11.0-16.0) % Plt Count (160-400) X10*3/uL MPV (9.4-12.3) fL Immature Gran % (Auto) (0.0-0.4) % Neut % (Auto) (45-73) % Lymph % (Auto) (20-40) % [place] % (Auto) (2-11) % Eos % (Auto) (0-4) % Baso % (Auto) (0-2) % Lymph # (Auto) (1.2-4.9) X10*3/uL [place] # (Auto) (0.1-1.2) X10*3/uL Eos # (Auto) (0.0-0.4) X10*3/uL Baso # (Auto) (0.0-0.2) X10*3/uL Abs Immat Gran (auto) (0.00-0.03) X10*3/uL Absolute Neuts (auto) (2.0-8.3) x10*3/uL Absolute Nucleated RBC (0.0-0.012) X10*3/uL Nucleated RBC % (auto) (0.0-0.2) /100WBC ESR 7 (0-20) MM/HR Sodium (135-145) mmol/L Potassium (3.3-5.1) mmol/L Chloride (96-108) mmol/L Carbon Dioxide (22-29) mmol/L Anion Gap (12-20) BUN (9-16) mg/dL Creatinine (0.5-1.4) mg/dL Estim Creat Clear Calc Estimated GFR Random Glucose (60-115) mg/dL Calcium (8.4-10.2) mg/dL Total Bilirubin (0.0-1.0) mg/dL AST (5-31) U/L ALT (0-31) U/L Alkaline Phosphatase (39-117) U/L Troponin I High Sens (<3.5-17.0) ng/L C-Reactive Protein (< or = 0.50) mg/dL Total Protein (6.5-8.0) g/dL Albumin (3.5-5.0) g/dL Critical Care Time Critical Care Time Critical Care Time: No Discharge Plan Discharge Clinical Impression: Lumbar radiculopathy, Pain of left calf, Popliteal cyst Patient Disposition: Home, Self-Care Instructions: Back Pain (ED), Lower Back Exercises (ED) Additional Instructions: Take your medications as prescribed. If you were prescribed antibiotics today, it is important that you take your medication to their entirety, do not skip any doses, do not finish them early. Follow-up with your primary care provider this week. Return to the emergency department with new or worsening symptoms. Such as fevers, chills, chest pain, shortness of breath, nausea, vomiting, dizziness, headache, vision changes, lethargy, weakness, urinary/bowel incontinence/retention or any worsening back pain/inability to walk. In case of emergency call 911 You can take ibuprofen every 6 hours and Tylenol every 4 hours as needed. Please follow-up with pain management for chronic back pain management. Cyclobenzaprine in a muscle relaxer will be sent to your pharmacy. Use caution while driving when taking this, it can make you drowsy. US/US venous duplex LE LT IMPRESSION: 1.? No DVT demonstrated in the left lower extremity. 2.? Popliteal fossa cyst measuring up to 3.0 cm. Prescriptions: New cyclobenzaprine 10 mg tablet 10 mg PO BEDTIME PRN (Reason: muscle spasm) Qty: 7 0RF lidocaine 5 % adhesive patch,medicated 1 patch topical DAILY PRN (Reason: pain) Qty: 15 0RF Rx Instructions: leave on most painful area for up to 12 hrs No Action cholecalciferol (vitamin D3) 50 mcg (2,000 unit) capsule 50 mcg PO DAILY Qty: 30 11RF pantoprazole 40 mg tablet,delayed release (DR/EC) 40 mg PO DAILY Qty: 60 6RF (DME) FreeStyle Lite Strips Strip See Rx Instructions .ROUTE .COMPLEX Qty: 150 0RF Dose Instruction: USE TO TEST BLOOD SUGAR TWICE DAILY Rx Instructions: USE TO TEST BLOOD SUGAR TWICE DAILY cyclobenzaprine 10 mg tablet 10 mg PO Q8H Qty: 20 0RF hydroxyzine HCl 25 mg tablet 50 mg PO BEDTIME sertraline 100 mg tablet 1 tab PO BEDTIME pramipexole 0.25 mg tablet 1 tab DAILY tizanidine 4 mg tablet 1 tab PO BEDTIME benzonatate 200 mg capsule 200 mg PO TID PRN (Reason: cough) Qty: 20 0RF albuterol sulfate 90 mcg/actuation HFA aerosol inhaler 2 puff inhalation Q4-6H PRN (Reason: shortness of breath or wheezing) Qty: 6.7 0RF fluticasone propionate [Flonase Allergy Relief] 50 mcg/actuation spray,suspension 2 spray intranasal DAILY Qty: 16 0RF Rx Instructions: administer into each nostril metformin 500 mg tablet extended release 24 hr 500 mg PO DAILY 30 Days Qty: 30 5RF acarbose 25 mg tablet 25 mg PO TID 30 Days Qty: 90 4RF hydrochlorothiazide 12.5 mg capsule 12.5 mg PO DAILY ropinirole 1 mg tablet 1 mg PO BEDTIME Rx Instructions: administer 1-3 hours before bedtime chlorhexidine gluconate [Hibiclens] 4 % liquid 1 appl topical .COMPLEX 20 Days Qty: 237 4RF Rx Instructions: 1 appl topical 3-4 times weekly; lather all skin in shower and leave on for one minute before washing off. (DME) blood-glucose meter [FreeStyle Lite Meter] Kit See Rx Instructions .Route Qty: 1 0RF Rx Instructions: As directed test blood sugar two times a day Referrals: Joyce Tapia MD [Primary Care Provider] - 2 days Stand Alone Forms: Work/School Release
[2022-02-26 00:20] LABS: C Reactive Protein 0.05 mg/dL (< or = 0.50)
[2022-02-26 00:43] LABS: Erythrocyte Sedimentation Rate 7 MM/HR (0-20)
[2022-02-26] MEDS: Morphine Sulfate Immed Release 15 MG TABLET PO (00:56)
[2022-02-26] MEDS: Lidocaine 4 % Patch ADH..PATCH 1 PATCH TRANSDERMA (00:57)
[2022-02-26 01:13] VITALS: BP 144/74; PULSE 76; RESP 20; O2SAT 98
--- NOTE | 2022-02-26 01:14 | PC.NURSE ---
pt ambulated around ED with RN. tolerated walking stating there was a slight increase in pain while walking but was able to tolerate. BP 144/74 post ambulation. pt states since placement of lidocaine patch she feels improvement of pain.
[2022-02-26] MEDS: HYDROmorphone HCl 2 MG TABLET 1 MG PO (01:29)
--- NOTE | 2022-02-26 01:31 | PC.NURSE ---
pt A&O x3. per MAR medicated pt for pain with dilaudid 1mg. at time of med administration pain was 9 out of 10 pain. provider has put in discharge papers. will monitor pt for 1 hour post med administration prior to discharge
[2022-02-26 02:27] VITALS: BP 119/70; PULSE 75; RESP 16; O2SAT 98
--- NOTE | 2022-02-26 02:31 | PC.NURSE ---
pt a&o x3. skin PWD. tolerates ambulation. pain was 5 out of 10 at time of discharge. work note provided to pt. discharge packet provided to patient. pt verbalized understanding of discharge plan
== END 2022-02-26 02:33 | disposition home or self-care (01) ==
PROVIDERS: Physician Assistant; Emergency Provider Internal Medicine; PCP Student in an Organized Health Care Education/Training Program
DX: M54.16 Radiculopathy, lumbar region (principal); M79.662 Pain in left lower leg; M71.22 Synovial cyst of popliteal space [Baker], left knee; E11.9 Type 2 diabetes mellitus without complications; Z86.718 Personal history of other venous thrombosis and embolism
CPT/HCPCS: 36415; 71046; 80053; 84484; 85025; 85652; 86140; 93005; 93971; 99284

== ENCOUNTER 2022-03-10 07:17 | Emergency (ER) | payer MEDICAID, SELFPAY ==
[2022-03-10 08:18] VITALS: BP 118/74; PULSE 95; RESP 18; TEMP 36.6; O2SAT 96; BMI 27.6
[2022-03-10 09:14] LABS: COVID-19 Test Positive (Negative); IDNOW Serial# 9DD0AD1C
--- NOTE | 2022-03-10 09:32 | ED.URI ---
HPI - URI/Sore Throat General Chief Complaint: General Medical Stated Complaint: Covid+/Fever/body aches Time Seen by Provider: 03/10/22 09:22 Source: patient Mode of arrival: ambulatory Limitations: no limitations History of Present Illness HPI Narrative: 61-year-old female who reports she is no longer diabetic after she received her gastric bypass surgery, history of DVT in 1994 and left lower extremity, asthma, depression, chronic back pain currently receiving cortisone injections by Pain Management, previous back surgery who reports she is on hydrochlorothiazide for lower extremity edema presenting to the ER with complaints of fevers up to 102 since yesterday with associated body aches, fatigue, malaise, nasal congestion / rhinorrhea, itchy throat, intermittent dry cough and lower back pain since yesterday worse today. Reports that she had a positive COVID test at home this morning. Reports she took Tylenol prior to arrival. she reports she had to cancel her pain management cortisone injection yesterday due to she did not feel well and she tested positive for COVID therefore she did not want to expose anyone else. She denies any headaches, dizziness, neck pain/ stiffness, trouble swallowing or breathing, chest pain or shortness of breath, dyspnea on exertion, orthopnea, palpitations, paresthesias, nausea/vomiting / diarrhea constipation, black or bloody stools, abdominal pain, flank pain, dysuria, hematuria, abnormal vaginal discharge, recent travel or sick contacts that she is aware of, rashes or any other symptoms complaints or concerns at this time. MD elicited complaint: fever, cough, sore throat, rhinorrhea and nasal congestion Pertinent past history: asthma Onset (ago): day(s) ( Since yesterday) Consistency: constant Severity: mild Description of mucous: clear, watery and yellow Able to tolerate fluids by mouth: Yes Exacerbating factors: nothing Relieving factors: other ( Tylenol helps a tad bit per patient) Associated symptoms: fever, chills, myalgias, rhinorrhea, nasal congestion, sore throat, cough and ear pain Treatments prior to arrival: acetaminophen Related Data Home Medications Medication Instructions Recorded Confirmed hydrochlorothiazide 12.5 mg capsule 12.5 mg PO DAILY 05/09/20 02/19/22 hydroxyzine HCl 25 mg tablet 50 mg PO BEDTIME 06/04/20 02/19/22 ropinirole 1 mg tablet 1 mg PO BEDTIME 10/28/20 02/19/22 pramipexole 0.25 mg tablet 1 tab DAILY 10/20/21 02/19/22 sertraline 100 mg tablet 1 tab PO BEDTIME 10/20/21 02/19/22 tizanidine 4 mg tablet 1 tab PO BEDTIME 10/20/21 02/19/22 Previous Rx's Medication Instructions Recorded cholecalciferol (vitamin D3) 50 50 mcg PO DAILY #30 caps 12/15/20 mcg (2,000 unit) capsule acarbose 25 mg tablet 25 mg PO TID 30 days #90 tabs 12/31/20 metformin 500 mg tablet,extended 500 mg PO DAILY 30 days #30 tabs 12/31/20 release 24 hr cyclobenzaprine 10 mg tablet 10 mg PO Q8H #20 tabs 03/01/21 pantoprazole 40 mg tablet,delayed 40 mg PO DAILY #60 tabs 04/06/21 release albuterol sulfate 90 mcg/actuation 2 puff inhalation Q4-6H PRN 06/21/21 aerosol inhaler shortness of breath or wheezing #6.7 grams benzonatate 200 mg capsule 200 mg PO TID PRN cough #20 caps 06/21/21 fluticasone propionate 50 2 spray intranasal DAILY #16 grams 06/21/21 mcg/actuation nasal spray,suspension (Flonase Allergy Relief) blood-glucose meter (FreeStyle #1 ea 08/21/21 Lite Meter kit) chlorhexidine gluconate 4 % 1 appl topical .COMPLEX 20 days 09/04/21 topical liquid (Hibiclens) #237 mL blood sugar diagnostic (FreeStyle #150 strips 02/08/22 Lite Strips) cyclobenzaprine 10 mg tablet 10 mg PO BEDTIME PRN muscle spasm 02/26/22 #7 tabs lidocaine 5 % topical patch 1 patch topical DAILY PRN pain #15 02/26/22 ea acetaminophen 500 mg tablet 1,000 mg PO QID PRN fever or pain 03/10/22 (Tylenol Extra Strength) #14 tabs cyclobenzaprine 10 mg tablet 10 mg PO Q8H PRN Muscle spasm #14 03/10/22 tabs nirmatrelvir 300 mg (150 mg See Rx Instructions PO .COMPLEX 03/10/22 x2)-ritonavir 100 mg tablet,dose #15 ea pack(EUA) (Paxlovid) prednisone 20 mg tablet 40 mg PO DAILY rash 5 days #10 tabs 03/10/22 Allergies Allergy/AdvReac Type Severity Reaction Status Date / Time Penicillins Allergy Intermediate HIVES Verified 02/19/22 09:22 sulfamethoxazole Allergy Intermediate BLISTERS- Verified 02/19/22 09:22 [From BACTRIM] DELGADO - NERVE ENDINGS IN HAND/ERYTHEMA MULTIFORM trimethoprim [From BACTRIM] Allergy Intermediate BLISTERS- Verified 02/19/22 09:22 DELGADO - NERVE ENDINGS IN HAND/ERYTHEMA MULTIFORM latex [Latex] Allergy Mild RASH Verified 02/19/22 09:22 theophylline AdvReac Intermediate TACHYCARDIA Verified 02/19/22 09:22 TEGADERM Allergy Intermediate SKIN TEARS Uncoded 02/05/22 10:06 From COMPAZINE AdvReac Severe SEIZURES Uncoded 02/05/22 10:06 Review of Systems Review of Systems: Constitutional : +fever/ chills/fatigue /malaise, Weight loss, No Night Sweats ENT/Mouth : + sore throat/ear pain/nasal congestion /rhinorrhea, No Hearing loss, No Sinus Pain, No Hoarseness, No Swallowing Difficulty Eyes: No Eye Pain, No Swelling, No Redness, No Foreign Body, No Discharge, No Vision Changes Cardiovascular : No Chest Pain, No SOB, No Dyspnea on Exertion, No Orthopnea, No Edema, No Palpitations Respiratory : + Cough, No Sputum, No Wheezing, No Smoke Exposure, No Dyspnea Gastrointestinal : No Nausea, No Vomiting, No Diarrhea, No Constipation, No abdominal Pain, No Hematochezia, No Melena Genitourinary : no irregular bleeding, No Dysuria, No Urinary Frequency, No Hematuria, No Urinary Incontinence, No Urgency, No Flank Pain, No Urinary Flow Changes, No Hesitancy Musculoskeletal : No joint pain, + Myalgias, No Joint Swelling Skin : No Skin Lesions, No rash Neuro : No Weakness, No Numbness, No Paresthesias, No Loss of Consciousness, No Dizziness, No Headache Psych : No Anxiety/Panic, No Depression, No SI/HI/AH/VH, No Social Issues, Heme/Lymph: No Bruising, No Bleeding,No Lymphadenopathy Endocrine : No Polyuria, No Polydipsia, No Temperature Intolerance Yes all other systems are reviewed and are negative [facility] Past Medical History Attestation statement: The following information was validated with the patient. Source: old records reviewed and nursing notes reviewed Medical History Anastomotic ulcer Anxiety Asthma Borderline diabetes Depression Diabetes type 2, controlled DVT (deep venous thrombosis) Dyslipidemia GERD (gastroesophageal reflux disease) High cholesterol History of restless legs syndrome Non-toxic multinodular goiter Surgical History History of excision of mass (10/26/21) History of hysterectomy History of tooth extraction Hx of esophagogastroduodenoscopy Hx of excision of epidermal inclusion cyst (12/25/21) Hx of hand surgery S/P gastric bypass S/P trigger finger release Family History Family History Mother Diabetes mellitus CHF (congestive heart failure) Kidney failure Cervical cancer Brother No problems noted. Brother No problems noted. 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 Blood pressure normal. Heart rate normal. Respiration rate normal. Temperature normal. Oxygen saturation normal. Appearance: Alert. Oriented X3. No acute distress. Head: Normal external exam. Normocephalic. Atraumatic. Eyes: PERRLA. EOMI. Conjunctiva and sclera normal. Eyelids normal. ENT: EAC normal. TM's Normal. Pharynx normal. Uvula midline. Moist mucous membranes. No lesions/ulcerations or masses noted on the tongue. Normal voice. No trismus noted. No drooling noted. No muffled voice noted. Neck: Normal inspection. Neck supple. FROM. No adenopathy. Thyroid Normal. No tracheal deviation noted. No crepitus is noted. No meningeal signs. No neck mass noted. No signs of trauma noted. CVS: Normal heart rate and rhythm. Heart sound normal. Pulses normal throughout. No murmurs/rales/gallops. Respiratory: No respiratory distress. Painless inspiration. Breath sounds normal. No wheezes/rales/rhonchi noted. Chest nontender. No crepitus is noted. No accessory muscle usage noted or decreased air movement noted. Abdomen: Soft and nontender. Nondistended. No guarding. No rigidity. Bowel sounds normal in all 4 quadrants. No distention noted. No organomegaly noted. No visible injury noted. No rebound tenderness. Back: No CVA tenderness. Full range of motion noted. Nontender. No signs of trauma. Patient neuro intact bilaterally and distally on all 4 extremities. Patient's reflexes intact bilaterally and distally on all 4 extremities. No rashes/lesion/induration/fluctuance or signs of infection noted. Skin: Skin warm and dry. Normal skin color. Normal skin turgor. No rashes/lesions/lacerations noted. Extremities: No lower extremity edema. No calf tenderness is noted. Extremities exhibit normal range of motion and nontender. Neuro: Oriented X 3. No motor deficit. No sensory deficit. Reflexes normal. Normal steady gait. No focal neuro deficits noted. CN's II-XII intact bilaterally? Vascular: + radial pulses/+ 2 distal pedal pulses/+2 dorsalis pedis b/l. Normal cap refill. No cyanosis noted to upper extremity nails and lower extremity toes nails. Course Course Course Narrative: 61-year-old female who reports she is no longer diabetic after she received her gastric bypass surgery, history of DVT in 1994 and left lower extremity, asthma, depression, chronic back pain currently receiving cortisone injections by Pain Management, previous back surgery who reports she is on hydrochlorothiazide for lower extremity edema presenting to the ER with complaints of fevers up to 102 since yesterday with associated body aches, fatigue, malaise, nasal congestion / rhinorrhea, itchy throat, intermittent dry cough and lower back pain since yesterday worse today. Reports that she had a positive COVID test at home this morning. Reports she took Tylenol prior to arrival. she reports she had to cancel her pain management cortisone injection yesterday due to she did not feel well and she tested positive for COVID therefore she did not want to expose anyone else. patient positive for COVID. No imaging indicated at this time. Will DC home with antivirals for COVID along with symptomatic treatment for back pain and instructions return if any new or worsening symptoms follow up with primary care provider. Patient understands agrees with this plan. MDM - URI/Sore Throat Medical Records Attestation: I reviewed the patient's medical records. Lab Data Attestation: I reviewed the patient's lab results. Labs: Lab Results 03/10/22 Range/Units 08:53 COVID-19 ([facility]ANSA) Positive A (Negative) COVID-19 Clin Com See Note Discharge Plan Discharge Clinical Impression: COVID-19 Patient Disposition: Home, Self-Care Instructions: COVID-19 (Coronavirus Disease 2019) (ED) Prescriptions: New cyclobenzaprine 10 mg tablet 10 mg PO Q8H PRN (Reason: Muscle spasm) Qty: 14 0RF prednisone 20 mg tablet 40 mg PO DAILY 5 Days Qty: 10 0RF acetaminophen [Tylenol Extra Strength] 500 mg tablet 1,000 mg PO QID PRN (Reason: fever or pain) Qty: 14 0RF Paxlovid (EUA) 300 mg (150 mg x 2)-100 mg tablets,dose pack See Rx Instructions .ROUTE .COMPLEX Qty: 15 0RF Rx Instructions: take TWO 150 mg tablets of nirmatrelvir with ONE 100 mg tablet of ritonavir twice daily for 5 days. Dip 15 pills No Action cholecalciferol (vitamin D3) 50 mcg (2,000 unit) capsule 50 mcg PO DAILY Qty: 30 11RF pantoprazole 40 mg tablet,delayed release (DR/EC) 40 mg PO DAILY Qty: 60 6RF (DME) FreeStyle Lite Strips Strip See Rx Instructions .ROUTE .COMPLEX Qty: 150 0RF Dose Instruction: USE TO TEST BLOOD SUGAR TWICE DAILY Rx Instructions: USE TO TEST BLOOD SUGAR TWICE DAILY cyclobenzaprine 10 mg tablet 10 mg PO Q8H Qty: 20 0RF hydroxyzine HCl 25 mg tablet 50 mg PO BEDTIME sertraline 100 mg tablet 1 tab PO BEDTIME pramipexole 0.25 mg tablet 1 tab DAILY tizanidine 4 mg tablet 1 tab PO BEDTIME benzonatate 200 mg capsule 200 mg PO TID PRN (Reason: cough) Qty: 20 0RF albuterol sulfate 90 mcg/actuation HFA aerosol inhaler 2 puff inhalation Q4-6H PRN (Reason: shortness of breath or wheezing) Qty: 6.7 0RF fluticasone propionate [Flonase Allergy Relief] 50 mcg/actuation spray,suspension 2 spray intranasal DAILY Qty: 16 0RF Rx Instructions: administer into each nostril cyclobenzaprine 10 mg tablet 10 mg PO BEDTIME PRN (Reason: muscle spasm) Qty: 7 0RF lidocaine 5 % adhesive patch,medicated 1 patch topical DAILY PRN (Reason: pain) Qty: 15 0RF Rx Instructions: leave on most painful area for up to 12 hrs metformin 500 mg tablet extended release 24 hr 500 mg PO DAILY 30 Days Qty: 30 5RF acarbose 25 mg tablet 25 mg PO TID 30 Days Qty: 90 4RF hydrochlorothiazide 12.5 mg capsule 12.5 mg PO DAILY ropinirole 1 mg tablet 1 mg PO BEDTIME Rx Instructions: administer 1-3 hours before bedtime chlorhexidine gluconate [Hibiclens] 4 % liquid 1 appl topical .COMPLEX 20 Days Qty: 237 4RF Rx Instructions: 1 appl topical 3-4 times weekly; lather all skin in shower and leave on for one minute before washing off. (DME) blood-glucose meter [FreeStyle Lite Meter] Kit See Rx Instructions .Route Qty: 1 0RF Rx Instructions: As directed test blood sugar two times a day Referrals: Joyce Tapia MD [Primary Care Provider] - 2 days Stand Alone Forms: Work/School Release Print Language: Yoruba
== END 2022-03-10 10:56 | disposition home or self-care (01) ==
PROVIDERS: Emergency Provider Emergency Medicine Emergency Medical Services; PCP Student in an Organized Health Care Education/Training Program
DX: U07.1 COVID-19 (principal)
CPT/HCPCS: 87635; 99283

== ENCOUNTER → 2022-03-17 09:20 | Outpatient (BNVA) | payer MEDICAID, SELFPAY | PROVIDERS: PCP Student in an Organized Health Care Education/Training Program; Visit Provider Orthopaedic Surgery | DX: G56.22 Lesion of ulnar nerve, left upper limb (principal); G56.02 Carpal tunnel syndrome, left upper limb | CPT/HCPCS: 99212 ==

== ENCOUNTER 2022-03-23 12:03 | Outpatient (REF) | payer MEDICAID, SELFPAY ==
[2022-03-23 12:19] VITALS: BMI 27.3
[2022-03-23 12:20] VITALS: BP 107/71; PULSE 76; RESP 16; TEMP 36.8; O2SAT 99
[2022-03-23 13:37] VITALS: BP 139/72; PULSE 78; RESP 16; O2SAT 99
--- NOTE | 2022-03-23 13:40 | P.OP_ITS ---
Operative Note Operative Note Date of Service: 03/23/22 Narrative: Preoperative diagnosis: Epidermal inclusion cyst midback and right buttock Postoperative diagnosis: same Procedure: excision of epidermal inclusion cyst midback and right buttock Surgeon: Flaco Zambrano MD [employer]ing [employer] Fabricator: none Anesthesia: local lidocaine 1% with epinephrine Indications for procedure: 61-year-old female with 2 painful epidermal inclusion cyst 1 located in the mid back 2nd located in the right buttock. Operative findings: Epidermal inclusion cyst each measuring 1.5 cm located in the upper mid back 2nd occurring in the right buttock Specimen: epidermal inclusion cyst x2 midback and right buttock Estimated blood loss: 2 mL Complications: none Procedure details: patient was brought to the minor surgery suite placed in a prone position. The site of surgery was confirmed by the patient in the upper mid back and the right buttock. After assuring informed consent the skin was prepped with Betadine and draped in a sterile fashion. Local anesthesia consisting of 1% lidocaine with epinephrine was then infiltrated at both lesions. Beginning in the upper back in elliptical incision oriented Vertically was then created with scalpel. This carried out through subcutaneous tissue around the cyst wall. cyst was passed off the table and sent to pathology for further examination. Deep dermis was then reapproximated using interrupted 3-0 Polysorb sutures. Skin was then closed using interrupted 3-0 nylon sutures. Attention was then directed to the right buttock. Again an elliptical incision was created with scalpel carried out through subcutaneous tissue and around cyst wall. Lesion was passed off the table and sent to pathology for further examination. Skin was then closed using interrupted 3-0 nylon sutures. Sterile dressings consisting of 2 x 2 gauze and Tegaderm were then applied. The patient tolerated the procedure well. She was discharged to home in stable condition.
== END 2022-03-23 12:04 | disposition home or self-care (01) ==
LOC: HO.MS 12:03
PROVIDERS: PCP Student in an Organized Health Care Education/Training Program; Visit Provider Surgery
PROC: (CPT 11402; principal; 2022-03-23 13:00)
DX: L72.0 Epidermal cyst (principal)
CPT/HCPCS: 11402 ×2; 12031; 88304

== ENCOUNTER 2022-03-24 10:22 | Outpatient (REF) | payer MEDICAID, SELFPAY ==
[2022-03-24 10:58] LABS: COVID-19 Test Positive (Negative); IDNOW Serial# 16C4AD1C
== END 2022-03-24 10:23 | disposition home or self-care (01) ==
LOC: HO.LAB 10:22
PROVIDERS: Visit Provider Internal Medicine
DX: Z20.822 Contact with and (suspected) exposure to COVID-19 (principal)
CPT/HCPCS: 87635; C9803

== ENCOUNTER → 2022-03-30 11:37 | Outpatient (BNVA) | payer MEDICAID, SELFPAY | PROVIDERS: PCP Student in an Organized Health Care Education/Training Program; Visit Provider Surgery | DX: Z48.02 Encounter for removal of sutures (principal) | CPT/HCPCS: 99211 ==

== ENCOUNTER 2022-04-15 05:45 | Day surgery (SDC) | payer MEDICAID, SELFPAY ==
--- NOTE | 2022-04-14 11:48 | HO.ANESPROP2 ---
Documented by User: Daily Aburto NP 04/14/22 11:51 HPI - Anesthesia Eval Consult details Narrative: 61yo F for Left Cubital Tunnel Release vs transposition s/p left carpal tunnel 12/2021 with GA-LMA 4 PMFSH Active Problems Active Problems: All Active Problems (Updated 03/10/22 @ 09:40 by SIMONE Harden) COVID-19 (Acute) Asthma (Acute) Sebaceous cyst (Acute) Abscess (Acute) Overweight (BMI 25.0-29.9) (Acute) Epidermal inclusion cyst (Acute) Trigger finger, left middle finger (Acute) Trigger finger, left ring finger (Acute) Emesis (Acute) Stiffness of left hand joint (Acute) Hidradenitis suppurativa (Acute) Left hand pain (Acute) Numbness and tingling in left hand (Acute) Contusion of right ankle (Acute) Carpal tunnel syndrome of left wrist (Acute) Cubital tunnel syndrome on left (Acute) Dyslipidemia (Acute) Non-toxic multinodular goiter (Acute) Diabetes type 2, controlled (Acute) Anastomotic ulcer (Acute) S/P gastric bypass (Acute) Borderline diabetes (Acute) Past Medical History Medical History Anastomotic ulcer Anxiety Asthma Borderline diabetes Depression Diabetes type 2, controlled DVT (deep venous thrombosis) Dyslipidemia GERD (gastroesophageal reflux disease) High cholesterol History of restless legs syndrome Non-toxic multinodular goiter Family History Family History Mother Diabetes mellitus CHF (congestive heart failure) Kidney failure Cervical cancer Brother No problems noted. Brother No problems noted. Family history of problems with anesthesia: No Surgical History Surgical History History of excision of epidermal inclusion cyst (03/23/22) History of excision of mass (10/26/21) History of hysterectomy History of tooth extraction Hx of esophagogastroduodenoscopy Hx of excision of epidermal inclusion cyst (12/25/21) Hx of hand surgery S/P gastric bypass S/P trigger finger release History of Problems with Anesthesia: No Social History Social History Are you a primary healthcare consulting manager to a significant other at home: No Do you presently have visiting nurse or other home services: No Alcohol intake: never Patient Tobacco Use Status: Current someday Tobacco user Tobacco use type: Cigarette Cigarette Packs Per Day: 0 Cigarettes Per Day: 1 Years Smoked: 30 Current occupational status: employed 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 Allergies Allergy/AdvReac Type Severity Reaction Status Date / Time Penicillins Allergy Intermediate HIVES Verified 04/15/22 06:33 sulfamethoxazole Allergy Intermediate BLISTERS- Verified 04/15/22 06:33 [From BACTRIM] DELGADO - NERVE ENDINGS IN HAND/ERYTHEMA MULTIFORM trimethoprim [From BACTRIM] Allergy Intermediate BLISTERS- Verified 04/15/22 06:33 DELGADO - NERVE ENDINGS IN HAND/ERYTHEMA MULTIFORM latex [Latex] Allergy Mild RASH Verified 04/15/22 06:33 theophylline AdvReac Intermediate TACHYCARDIA Verified 04/15/22 06:33 TEGADERM Allergy Intermediate SKIN TEARS Uncoded 03/30/22 16:13 From COMPAZINE AdvReac Severe SEIZURES Uncoded 03/30/22 16:13 Home Medications Medication Instructions Recorded Confirmed Last Taken Type hydrochlorothiazide 12.5 mg capsule 12.5 mg PO DAILY 05/09/20 04/15/22 04/14/22 History hydroxyzine HCl 25 mg tablet 50 mg PO BEDTIME 06/04/20 04/15/22 04/14/22 History ropinirole 1 mg tablet 1 mg PO BEDTIME 10/28/20 04/15/22 04/14/22 History pramipexole 0.25 mg tablet 1 tab DAILY 10/20/21 04/15/22 04/14/22 History sertraline 100 mg tablet 1 tab PO BEDTIME 10/20/21 04/15/22 04/14/22 History tizanidine 4 mg tablet 1 tab PO BEDTIME 10/20/21 04/15/22 12/22/21 History Exam Exam Date and Time: April 14, 2022 1148 Pertinent Lab Results Pertinent Lab Results: Laboratory Tests 02/25/22 02/25/22 21:19 21:19 WBC 7.6 Hgb 13.0 Hct 37.9 Plt Count 212 Sodium 140 Potassium 3.8 Chloride 104 Carbon Dioxide 27 BUN 11 Creatinine 0.97 Narrative Narrative: EKG 02/2022 Vent. Rate : 078 BPM ? ? Atrial Rate : 078 BPM ?? P-R Int : 164 ms? QRS Dur : 072 ms ? ? QT Int : 358 ms ? ? ? P-R-T Axes : 017 028 020 degrees ?? QTc Int : 408 ms ? Normal sinus rhythm Normal ECG When compared with ECG of 28-OCT-2020 21:36, No significant change was found Assessment and Plan Assessment Anesthesia Assessment: Chart Reviewed Final Anesthetic Review Family History of Problems with Anesthesia: No History of Problems with Anesthesia: No Documented by User: Jonny Barcenas MD 04/15/22 14:39 PMFSH Past Medical History Medical History Anastomotic ulcer Anxiety Asthma Borderline diabetes Depression Diabetes type 2, controlled DVT (deep venous thrombosis) Dyslipidemia GERD (gastroesophageal reflux disease) High cholesterol History of restless legs syndrome Non-toxic multinodular goiter Family History Family History Mother Diabetes mellitus CHF (congestive heart failure) Kidney failure Cervical cancer Brother No problems noted. Brother No problems noted. Surgical History Surgical History History of excision of epidermal inclusion cyst (03/23/22) History of excision of mass (10/26/21) History of hysterectomy History of tooth extraction Hx of esophagogastroduodenoscopy Hx of excision of epidermal inclusion cyst (12/25/21) Hx of hand surgery S/P gastric bypass S/P trigger finger release Social History Social History Are you a primary healthcare consulting manager to a significant other at home: No Do you presently have visiting nurse or other home services: No Alcohol intake: never Patient Tobacco Use Status: Current someday Tobacco user Tobacco use type: Cigarette Cigarette Packs Per Day: 0 Cigarettes Per Day: 1 Years Smoked: 30 Current occupational status: employed 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 Allergies Allergy/AdvReac Type Severity Reaction Status Date / Time Penicillins Allergy Intermediate HIVES Verified 04/15/22 06:33 sulfamethoxazole Allergy Intermediate BLISTERS- Verified 04/15/22 06:33 [From BACTRIM] DELGADO - NERVE ENDINGS IN HAND/ERYTHEMA MULTIFORM trimethoprim [From BACTRIM] Allergy Intermediate BLISTERS- Verified 04/15/22 06:33 DELGADO - NERVE ENDINGS IN HAND/ERYTHEMA MULTIFORM latex [Latex] Allergy Mild RASH Verified 04/15/22 06:33 theophylline AdvReac Intermediate TACHYCARDIA Verified 04/15/22 06:33 TEGADERM Allergy Intermediate SKIN TEARS Uncoded 03/30/22 16:13 From COMPAZINE AdvReac Severe SEIZURES Uncoded 03/30/22 16:13 Home Medications Medication Instructions Recorded Confirmed Last Taken Type hydrochlorothiazide 12.5 mg capsule 12.5 mg PO DAILY 05/09/20 04/15/22 04/14/22 History hydroxyzine HCl 25 mg tablet 50 mg PO BEDTIME 06/04/20 04/15/22 04/14/22 History ropinirole 1 mg tablet 1 mg PO BEDTIME 10/28/20 04/15/22 04/14/22 History pramipexole 0.25 mg tablet 1 tab DAILY 10/20/21 04/15/22 04/14/22 History sertraline 100 mg tablet 1 tab PO BEDTIME 10/20/21 04/15/22 04/14/22 History tizanidine 4 mg tablet 1 tab PO BEDTIME 10/20/21 04/15/22 12/22/21 History Exam Airway Mallampati Class: III TM Dist: >3cm Neck ROM: Full Denture: Upper Loose/Missing/Broken Teeth: Yes (Poor dentition ) Heart: S1,S2 Lungs: b/l breath sounds Assessment and Plan Assessment Anesthesia Assessment: Anesthesia Plan Discussed Final Anesthetic Review NPO: Yes ASA Class: II Final Preanesthetic Review: Consent Obtained/Reviewed and Anes Risks/Benef Reviewed Patient Risk: Intermediate Procedure Risk: Intermediate Anesthetic Plan Anesthetic Plan: GA Disposition: Standard PACU
[2022-04-15] VITALS (7 sets, daily range): BP systolic 118–136; BP diastolic 70–77; PULSE 84–92; RESP 16–20; TEMP 36.5–36.9; O2SAT 95–98; BMI 27.6
[2022-04-15] MEDS: Lactated Ringers 1,000 ML 100 ML IVCONT (06:19)
[2022-04-15 06:26] LABS: Glucose, Whole Blood 139 mg/dL (60-115)
--- NOTE | 2022-04-15 07:54 | MHC.SHP ---
Pre-Procedural Eval Section A Date of Service: 04/15/22 The patient is an INPATIENT: No Changes since office visit: No Cold of Flu in the past 2 weeks, No New Medical Problems, No Changes in Medication and No Patient answered all questions The History & Physical has been completed within 30 days and I have reviewed it.: Yes Section B Chief Complaint: Lesion of ulnar nerve, left upper limb Allergies: Allergies Allergy/AdvReac Type Severity Reaction Status Date / Time Penicillins Allergy Intermediate HIVES Verified 04/15/22 06:33 sulfamethoxazole Allergy Intermediate BLISTERS- Verified 04/15/22 06:33 [From BACTRIM] DELGADO - NERVE ENDINGS IN HAND/ERYTHEMA MULTIFORM trimethoprim [From BACTRIM] Allergy Intermediate BLISTERS- Verified 04/15/22 06:33 DELGADO - NERVE ENDINGS IN HAND/ERYTHEMA MULTIFORM latex [Latex] Allergy Mild RASH Verified 04/15/22 06:33 theophylline AdvReac Intermediate TACHYCARDIA Verified 04/15/22 06:33 TEGADERM Allergy Intermediate SKIN TEARS Uncoded 03/30/22 16:13 From COMPAZINE AdvReac Severe SEIZURES Uncoded 03/30/22 16:13 Plan I have reviewed the history and physical and performed a pertinent physical examination on my patient. No changes have occurred unless specified.
--- NOTE | 2022-04-15 07:55 | P.OP_ITS ---
Operative Note Operative Note Date of Service: 04/15/22 Narrative: Operative Note Narrative: Preop diagnosis: 1. Left recurrent Cubital tunnel syndrome Postop diagnosis: Same Procedure: 1. left repeat Cubital Tunnel Release and anterior ulnar nerve transposition Surgeon: Jessy Bautista MD Anesthesia: General Anesthesia Findings: The ulnar nerve was noted to be passing through the cubital tunnel behind the medial epicondyle. There was Scarring about the ulnar nerve at the distal aspect of the cubital tunnel at the point where the nerve enters between the heads of the FCU muscles, and narrowing of the ulnar nerve in this area. Implants: none Tourniquet time: 45 minutes EBL: 5.0 ml Specimen: none Drains: None Complications: None Disposition: Brought to the recovery room in stable condition Plan: Follow-up in 10-14 days for wound check, and suture removal Indications: The patient is 61 years old with recurrent left cubital tunnel syndrome, status post cubital tunnel release in 1984 . The risks and benefits of operative treatment, including but not limited to risk of damage to blood vessels, nerves, tendons, infection, recurrence, persistent pain or numbness, incomplete resolution of preoperative symptoms, or need for further surgery were discussed with the patient and they wished to proceed with surgery. Procedure: Once consent was obtained patient was brought back to the operating suite and placed in the operating table in a supine position. Perioperative antibiotics and anesthesia was administered by the anesthesia team. The limb was prepped and draped in a standard surgical fashion, and a sterile tourniquet applied to the proximal aspect of the left upper extremity. The limb was elevated exsanguinated with Esmarch bandage and the tourniquet inflated to 250 mm of mercury for a total tourniquet time of 45 minutes. A 7 cm gently curved but longitudinally oriented incision was made centered over the cubital tunnel of the left upper extremity in line with her previous incisional scar.. Incision was made through the skin to the subcutaneous tissues using a # 15 Blade. I then dissected down to the level of the medial epicondyle and the cubital tunnel using tenotomy scissors. The ulnar nerve was identified just posterior to the medial intermuscular septum And was noted to be passing through the cubital tunnel posterior to the medial epicondyle.. The ulnar nerve was released in a proximal to distal direction using tenotomy in iris scissors while directly visualizing and protecting the ulnar nerve. Thickening and Scarring was appreciated about the ulnar nerve at the distal a spect of the cubital tunnel, about where the nerve enters between the 2 heads of the flexor carpi ulnaris muscle bellies. The ulnar nerve was then released distally as it passed between the 2 heads of the FCU muscle bellies. There was narrowing appreciated in the ulnar nerve where it had been squeezed by the tight scarring. We then proceeded with an anterior ulnar nerve transposition. The lucio bcutaneous tissue was carefully freed from the fascia anterior to the medial epicondyle creating an appropriate bed for the ulnar nerve transposition. A small vessel loop was passed behind the ulnar nerve to help facilitate its mobilization. The ulnar nerve was then freed and carefully transposed anterior to the medial epicondyle. Some of the subcutaneous tissue in the anterior flap was carefully secured to the fascia about the medial epicondyle using some 3-0 Vicryl suture material. This created a sling to prevent posterior subluxation of the ulnar nerve. The elbow was brought through flexion and extension and the ulnar nerve was evaluated in its transposition site and found to have good ability to glide and to be free from undo pressure from the anterior sling. At this point the tourniquet was deflated and hemostasis obtained with a brief period of local pressure and bipolar electrocautery. The wound was copiously irrigated with normal saline. The subcutaneous layer was closed with 4-0 Vicryl suture, and the skin edges were reapproximated with 5-0 nylon suture. The wound was infiltrated with some 0.5% plain ropivacaine for postop pain control and sterile dressings and a posterior splint was applied. The patient appears to have tolerated the procedure well and with no complications. All digits were well vascularized conclusion of the case.
[2022-04-15] MEDS: Acetaminophen 325 MG TABLET 650 MG PO (10:05)
[2022-04-15] MEDS: oxyCODONE HCl Immed Release 5 MG TABLET PO (10:10)
== END 2022-04-15 11:23 | disposition home or self-care (01) ==
PROVIDERS: PCP Student in an Organized Health Care Education/Training Program; Visit Provider Orthopaedic Surgery
PROC: (CPT 64718; principal; 2022-04-15 07:30)
DX: G56.22 Lesion of ulnar nerve, left upper limb (principal); R20.0 Anesthesia of skin; E11.9 Type 2 diabetes mellitus without complications; E78.5 Hyperlipidemia, unspecified; J45.909 Unspecified asthma, uncomplicated; E04.2 Nontoxic multinodular goiter; F32.A Depression, unspecified; Z88.0 Allergy status to penicillin; Z88.2 Allergy status to sulfonamides; Z91.040 Latex allergy status; Z98.84 Bariatric surgery status; F17.210 Nicotine dependence, cigarettes, uncomplicated
CPT/HCPCS: 64718; 82947; J0171; J0690; J1100; J2250; J2405; J2795; J3010

== ENCOUNTER 2022-04-23 19:56 | Emergency (ER) | payer MEDICAID, SELFPAY ==
[2022-04-23 21:50] VITALS: BP 129/71; PULSE 92; RESP 18; TEMP 36.8; O2SAT 99; BMI 26.9
[2022-04-24 00:55] VITALS: BP 123/77; PULSE 75; RESP 16; TEMP 36.5; O2SAT 97
--- NOTE | 2022-04-24 01:18 | ED_ITS ---
HPI - Extremity Problem General Chief complaint: Extremity Injury, Upper Stated complaint: burning sensation in arm (surgery), finger asleep Time Seen by Provider: 04/24/22 01:02 Source: patient Limitations: no limitations History of Present Illness HPI Narrative: This is a 61-year-old female who about 8 days ago had surgery on her left elbow for recurrent cubital syndrome. The patient complains of burning feeling in the area where her surgery was as well as tingling in her little and ring finger in her left hand. The patient was initially and pain medicine but has had run out of it. The patient denies any fever. She did change the bandage but 3 days ago. She does have follow-up next week with her surgeon. She tried calling her surgeon's office today but did not get a call back. Related Data Home Medications Medication Instructions Recorded Confirmed hydrochlorothiazide 12.5 mg capsule 12.5 mg PO DAILY 05/09/20 04/15/22 hydroxyzine HCl 25 mg tablet 50 mg PO BEDTIME 06/04/20 04/15/22 ropinirole 1 mg tablet 1 mg PO BEDTIME 10/28/20 04/15/22 pramipexole 0.25 mg tablet 1 tab DAILY 10/20/21 04/15/22 sertraline 100 mg tablet 1 tab PO BEDTIME 10/20/21 04/15/22 tizanidine 4 mg tablet 1 tab PO BEDTIME 10/20/21 04/15/22 Previous Rx's Medication Instructions Recorded cholecalciferol (vitamin D3) 50 50 mcg PO DAILY #30 caps 12/15/20 mcg (2,000 unit) capsule acarbose 25 mg tablet 25 mg PO TID 30 days #90 tabs 12/31/20 metformin 500 mg tablet,extended 500 mg PO DAILY 30 days #30 tabs 12/31/20 release 24 hr cyclobenzaprine 10 mg tablet 10 mg PO Q8H #20 tabs 03/01/21 pantoprazole 40 mg tablet,delayed 40 mg PO DAILY #60 tabs 04/06/21 release albuterol sulfate 90 mcg/actuation 2 puff inhalation Q4-6H PRN 06/21/21 aerosol inhaler shortness of breath or wheezing #6.7 grams fluticasone propionate 50 2 spray intranasal DAILY #16 grams 06/21/21 mcg/actuation nasal spray,suspension (Flonase Allergy Relief) blood-glucose meter (FreeStyle #1 ea 08/21/21 Lite Meter kit) chlorhexidine gluconate 4 % 1 appl topical .COMPLEX 20 days 09/04/21 topical liquid (Hibiclens) #237 mL lidocaine 5 % topical patch 1 patch topical DAILY PRN pain #15 02/26/22 ea acetaminophen 500 mg tablet 1,000 mg PO QID PRN fever or pain 03/10/22 (Tylenol Extra Strength) #14 tabs blood sugar diagnostic (FreeStyle #150 strips 03/30/22 Lite Strips) hydrocodone 5 mg-acetaminophen 325 1 - 2 tab PO Q6H PRN pain #20 tabs 04/15/22 mg tablet oxycodone 5 mg tablet 5 mg PO BEDTIME PRN pain 5 days #5 04/19/22 tabs oxycodone 5 mg tablet 5 - 10 mg PO Q6H PRN pain #20 tabs 04/24/22 Allergies Allergy/AdvReac Type Severity Reaction Status Date / Time Penicillins Allergy Intermediate HIVES Verified 04/19/22 12:42 sulfamethoxazole Allergy Intermediate BLISTERS- Verified 04/19/22 12:42 [From BACTRIM] DELGADO - NERVE ENDINGS IN HAND/ERYTHEMA MULTIFORM trimethoprim [From BACTRIM] Allergy Intermediate BLISTERS- Verified 04/19/22 12:42 DELGADO - NERVE ENDINGS IN HAND/ERYTHEMA MULTIFORM latex [Latex] Allergy Mild RASH Verified 04/19/22 12:42 theophylline AdvReac Intermediate TACHYCARDIA Verified 04/19/22 12:42 TEGADERM Allergy Intermediate SKIN TEARS Uncoded 04/19/22 12:42 From COMPAZINE AdvReac Severe SEIZURES Uncoded 04/19/22 12:42 Review of Systems Review of Systems: As per HPI Constitutional: Constitutional: Denies fever(s) and Reports headache(s) ENT: Reports headache(s) Musculoskeletal: Comments: Left upper extremity pain Neurologic: Reports burning sensations, Reports headache(s) and Reports paresthesias PMFSH Past Medical History Medical History (Updated 04/24/22 @ 01:27 by Gavin Byrne MD) Anastomotic ulcer Anxiety Asthma Borderline diabetes Depression Diabetes type 2, controlled DVT (deep venous thrombosis) Dyslipidemia GERD (gastroesophageal reflux disease) High cholesterol History of restless legs syndrome Non-toxic multinodular goiter Surgical History History of excision of epidermal inclusion cyst (03/23/22) History of excision of mass (10/26/21) History of hysterectomy History of tooth extraction Hx of esophagogastroduodenoscopy Hx of excision of epidermal inclusion cyst (12/25/21) Hx of hand surgery S/P gastric bypass S/P trigger finger release Family History Family History Mother Diabetes mellitus CHF (congestive heart failure) Kidney failure Cervical cancer Brother No problems noted. Brother No problems noted. 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 Incision appears well with no erythema, swelling, induration, drainage. Sutures intact. Patient's left wrist and hand have no swelling and/or neurovascular intact. Patient overall appears somewhat histrionic Course Course Course Narrative: Patient's bandage was removed and the wound examined as noted above in the physical examination. Wound was redressed with the original splint, which was clean and intact, placed again in the same position. Patient was given oxycodone 10 mg p.o., and was fitted with a new sling. Patient seems to have pain out of proportion to physical examination with a well-appearing wound Discharge Plan Discharge Clinical Impression: Paresthesia, Post-operative pain Patient Disposition: Home, Self-Care Instructions: Pain Management (ED), Paresthesia (ED) Additional Instructions: Follow-up with your hand surgeon has scheduled next week. Your wound appears well without any sign of infection. Use Percocet as prescribed for pain for the next few days. You can also use acetaminophen. Prescriptions: New oxycodone 5 mg tablet 5 - 10 mg PO Q6H PRN (Reason: pain) Qty: 20 0RF Rx Instructions: Partial Fill upon patient request. No Action cholecalciferol (vitamin D3) 50 mcg (2,000 unit) capsule 50 mcg PO DAILY Qty: 30 11RF pantoprazole 40 mg tablet,delayed release (DR/EC) 40 mg PO DAILY Qty: 60 6RF (DME) FreeStyle Lite Strips Strip See Rx Instructions .ROUTE .COMPLEX Qty: 150 6RF Dose Instruction: USE TO TEST BLOOD SUGAR TWICE DAILY Rx Instructions: USE TO TEST BLOOD SUGAR TWICE DAILY cyclobenzaprine 10 mg tablet 10 mg PO Q8H Qty: 20 0RF hydroxyzine HCl 25 mg tablet 50 mg PO BEDTIME sertraline 100 mg tablet 1 tab PO BEDTIME pramipexole 0.25 mg tablet 1 tab DAILY tizanidine 4 mg tablet 1 tab PO BEDTIME acetaminophen [Tylenol Extra Strength] 500 mg tablet 1,000 mg PO QID PRN (Reason: fever or pain) Qty: 14 0RF hydrocodone-acetaminophen 5-325 mg tablet 1 - 2 tab PO Q6H PRN (Reason: pain) Qty: 20 0RF Rx Instructions: Partial Fill upon patient request. albuterol sulfate 90 mcg/actuation HFA aerosol inhaler 2 puff inhalation Q4-6H PRN (Reason: shortness of breath or wheezing) Qty: 6.7 0RF fluticasone propionate [Flonase Allergy Relief] 50 mcg/actuation spray,suspension 2 spray intranasal DAILY Qty: 16 0RF Rx Instructions: administer into each nostril lidocaine 5 % adhesive patch,medicated 1 patch topical DAILY PRN (Reason: pain) Qty: 15 0RF Rx Instructions: leave on most painful area for up to 12 hrs metformin 500 mg tablet extended release 24 hr 500 mg PO DAILY 30 Days Qty: 30 5RF acarbose 25 mg tablet 25 mg PO TID 30 Days Qty: 90 4RF hydrochlorothiazide 12.5 mg capsule 12.5 mg PO DAILY ropinirole 1 mg tablet 1 mg PO BEDTIME Rx Instructions: administer 1-3 hours before bedtime chlorhexidine gluconate [Hibiclens] 4 % liquid 1 appl topical .COMPLEX 20 Days Qty: 237 4RF Rx Instructions: 1 appl topical 3-4 times weekly; lather all skin in shower and leave on for one minute before washing off. oxycodone 5 mg tablet 5 mg PO BEDTIME PRN (Reason: pain) 5 Days Qty: 5 0RF Rx Instructions: Partial Fill upon patient request. (DME) blood-glucose meter [FreeStyle Lite Meter] Kit See Rx Instructions .Route Qty: 1 0RF Rx Instructions: As directed test blood sugar two times a day Interventions: ED Discharge Assessment Last Done: 04/24/22 01:46 Discharge Date/Time: 04/24/22 01:47
[2022-04-24] MEDS: Acetaminophen 325 MG TABLET 650 MG PO (01:35)
[2022-04-24] MEDS: oxyCODONE HCl Immed Release 5 MG TABLET 10 MG PO (01:36)
--- NOTE | 2022-04-24 01:45 | PC.NURSE ---
pt arm cleaned up and rewrapped. sling applied per pt request and MD order.
== END 2022-04-24 01:47 | disposition home or self-care (01) ==
PROVIDERS: Emergency Provider Emergency Medicine
DX: R20.2 Paresthesia of skin (principal); G89.18 Other acute postprocedural pain; E11.9 Type 2 diabetes mellitus without complications; E78.5 Hyperlipidemia, unspecified; Z86.718 Personal history of other venous thrombosis and embolism; F17.210 Nicotine dependence, cigarettes, uncomplicated; Z79.899 Other long term (current) drug therapy; Z79.84 Long term (current) use of oral hypoglycemic drugs
CPT/HCPCS: 99283

== ENCOUNTER 2022-05-02 15:10 | Emergency (ER) | payer MEDICAID, SELFPAY ==
--- NOTE | ~2022-05-02 | US_ITS ---
EXAMINATION: US VENOUS ULTRASOUND WITH DOPPLER LOWER EXTREMITY, LEFT CLINICAL INFORMATION: Pain, history of DVT COMPARISON: Left lower extremity DVT ultrasound 10/27/2021 TECHNIQUE: Ultrasound of the deep veins is performed from the hip to the calf with compression sonography and color and pulse Doppler assessment. Spectral analysis with color-flow imaging is performed. FINDINGS: There is normal venous compression and respiratory variation and augmented flow. The visualized common femoral vein, superficial femoral vein, profunda femoral vein, popliteal vein, and the trifurcation region shows no evidence of deep venous thrombosis. There is no significant popliteal fossa cyst. Trace suprapatellar joint effusion. If the patient's symptoms persist, followup ultrasound in 5 days 7 days might be of value to exclude proximal propagation from a non-visualized calf vein. US/US venous duplex LE IMPRESSION: No DVT demonstrated in the left lower extremity. Trace suprapatellar joint effusion.
--- NOTE | ~2022-05-02 | XR_ITS ---
EXAMINATION: XR HIP, LEFT CLINICAL INFORMATION: Pain. COMPARISON: None TECHNIQUE: Frontal view of pelvis Two views of the left hip. FINDINGS: Bones and soft tissues are normal. No fracture. Alignment is anatomic. Hip joint space is maintained. XR/XR hip LT min 2V IMPRESSION: Normal left hip. Normal pelvis
[2022-05-02 16:05] VITALS: BP 129/72; PULSE 82; RESP 18; TEMP 36.6; O2SAT 98; BMI 27.3
[2022-05-02 18:38] LABS: MANUAL DIFF FLAG NO
[2022-05-02 18:39] LABS: Basophils Percent Auto 0.3 % (0-2); Eosinophils Absolute Auto 0.2 X10*3/uL (0.0-0.4); Eosinophils Percent Auto 2.2 % (0-4); Hematocrit 41.4 % (37.0-47.0); Hemoglobin 13.8 g/dl (12.0-16.0); Imm Gran Abs Auto 0.02 X10*3/uL (0.00-0.03); Imm Gran Pct Auto 0.2 % (0.0-0.4); Lymphocytes Absolute Auto 2.4 X10*3/uL (1.2-4.9); Lymphocytes Percent Auto 27.6 % (20-40); Mean Corpuscular HGB Conc 33.3 g/dl (31.0-35.0); Mean Platelet Volume 9.5 fL (9.4-12.3); Monocytes Absolute Auto 0.4 X10*3/uL (0.1-1.2); Monocytes Percent Auto 5.1 % (2-11); Neutrophils Absolute Auto 5.5 x10*3/uL (2.0-8.3); Neutrophils Percent Auto 64.6 % (45-73); Platelet Count 216 X10*3/uL (160-400); Red Blood Count 4.76 X10*6/uL (4.20-5.50); Red Cell Distribution Width 12.9 % (11.0-16.0); White Blood Count 8.6 X10*3/uL (4.8-10.8)
[2022-05-02 18:46] LABS: D Dimer High Sensitivity < 150 NG/ML
[2022-05-02 18:54] LABS: Alanine Aminotransferase 28 U/L (0-31); Albumin Level 4.2 g/dL (3.5-5.0); Alkaline Phosphatase 80 U/L (39-117); Anion Gap 12 (12-20); Aspartate Amino Transferase 19 U/L (5-31); Bilirubin Total 0.4 mg/dL (0.0-1.0); Blood Urea Nitrogen 12 mg/dL (9-16); Calcium 9.3 mg/dL (8.4-10.2); Carbon Dioxide 31 mmol/L (22-29); Chloride 102 mmol/L (96-108); Estimated Glomerular Filt Rate > 60; Glucose Random 123 mg/dL (60-115); Potassium 4.4 mmol/L (3.3-5.1); Sodium 141 mmol/L (135-145); Total Protein 6.8 g/dL (6.5-8.0)
--- NOTE | 2022-05-02 20:06 | ED_ITS ---
HPI - General Adult General Chief complaint: General Medical Stated complaint: Left sided groin pain- 2 weeks, been constant Time Seen by Provider: 05/02/22 19:49 Source: patient Mode of arrival: ambulatory Limitations: no limitations History of Present Illness HPI narrative: 61-year-old female came in for evaluation of left groin pain. Left groin pain started 2 weeks ago pain is localized to the left groin area, patient do not remember having trauma to the left hip or groin area, patient described it as increased dull aching pain in the groin area causing heaviness sensation to the left lower extremity is however patient ambulate on both toes and heels with no weakness, patient had recent job-related injury caused left elbow injury that require surgery. Patient declined any swelling, no recent travel. Related Data Home Medications Medication Instructions Recorded Confirmed hydrochlorothiazide 12.5 mg capsule 12.5 mg PO DAILY 05/09/20 04/15/22 hydroxyzine HCl 25 mg tablet 50 mg PO BEDTIME 06/04/20 04/15/22 ropinirole 1 mg tablet 1 mg PO BEDTIME 10/28/20 04/15/22 pramipexole 0.25 mg tablet 1 tab DAILY 10/20/21 04/15/22 sertraline 100 mg tablet 1 tab PO BEDTIME 10/20/21 04/15/22 tizanidine 4 mg tablet 1 tab PO BEDTIME 10/20/21 04/15/22 Previous Rx's Medication Instructions Recorded cholecalciferol (vitamin D3) 50 50 mcg PO DAILY #30 caps 12/15/20 mcg (2,000 unit) capsule acarbose 25 mg tablet 25 mg PO TID 30 days #90 tabs 12/31/20 metformin 500 mg tablet,extended 500 mg PO DAILY 30 days #30 tabs 12/31/20 release 24 hr cyclobenzaprine 10 mg tablet 10 mg PO Q8H #20 tabs 03/01/21 pantoprazole 40 mg tablet,delayed 40 mg PO DAILY #60 tabs 04/06/21 release albuterol sulfate 90 mcg/actuation 2 puff inhalation Q4-6H PRN 06/21/21 aerosol inhaler shortness of breath or wheezing #6.7 grams fluticasone propionate 50 2 spray intranasal DAILY #16 grams 06/21/21 mcg/actuation nasal spray,suspension (Flonase Allergy Relief) blood-glucose meter (FreeStyle #1 ea 08/21/21 Lite Meter kit) chlorhexidine gluconate 4 % 1 appl topical .COMPLEX 20 days 09/04/21 topical liquid (Hibiclens) #237 mL lidocaine 5 % topical patch 1 patch topical DAILY PRN pain #15 02/26/22 ea acetaminophen 500 mg tablet 1,000 mg PO QID PRN fever or pain 03/10/22 (Tylenol Extra Strength) #14 tabs blood sugar diagnostic (FreeStyle #150 strips 03/30/22 Lite Strips) hydrocodone 5 mg-acetaminophen 325 1 - 2 tab PO Q6H PRN pain #20 tabs 04/15/22 mg tablet oxycodone 5 mg tablet 5 mg PO BEDTIME PRN pain 5 days #5 04/19/22 tabs oxycodone 5 mg tablet 5 - 10 mg PO Q6H PRN pain #20 tabs 04/24/22 tramadol 50 mg tablet 50 mg PO BEDTIME 5 days #5 tabs 04/30/22 Allergies Allergy/AdvReac Type Severity Reaction Status Date / Time Penicillins Allergy Intermediate HIVES Verified 04/30/22 08:32 sulfamethoxazole Allergy Intermediate BLISTERS- Verified 04/30/22 08:32 [From BACTRIM] DELGADO - NERVE ENDINGS IN HAND/ERYTHEMA MULTIFORM trimethoprim [From BACTRIM] Allergy Intermediate BLISTERS- Verified 04/30/22 08:32 DELGADO - NERVE ENDINGS IN HAND/ERYTHEMA MULTIFORM latex [Latex] Allergy Mild RASH Verified 04/30/22 08:32 theophylline AdvReac Intermediate TACHYCARDIA Verified 04/30/22 08:32 TEGADERM Allergy Intermediate SKIN TEARS Uncoded 04/30/22 08:32 From COMPAZINE AdvReac Severe SEIZURES Uncoded 04/30/22 08:32 Review of Systems Review of Systems: All other systems are reviewed and are negative Constitutional: Reports as per HPI and Reports no additional constitutional complaints Eyes: Reports as per HPI and Reports no additional eye complaints Reports system reviewed and no additional complaints, except as documented Cardiovascular: Reports as per HPI and Reports no additional cardiovascular complaints Respiratory: Reports as per HPI and Reports no additional respiratory complaints Gastrointestinal: Reports as per HPI and Reports no additional gastrointestinal complaints Genitourinary: Reports no additional female genitourinary complaints Musculoskeletal: Reports no additional musculoskeletal complaints Skin/Breast: Reports system reviewed and no additional complaints, except as docu Psychiatric: Reports no additional psychiatric complaints Endocrine: Reports no additional endocrine complaints Hematologic/Lymphatic: Reports no additional hematologic/lymphatic complaints Allergic/Immunologic: Reports no additional allergic/immunologic complaints Reports system reviewed and no additional complaints, except as documented and Reports Abnormal speech present [facility] Past Medical History Medical History Anastomotic ulcer Anxiety Asthma Borderline diabetes Depression Diabetes type 2, controlled DVT (deep venous thrombosis) Dyslipidemia GERD (gastroesophageal reflux disease) High cholesterol History of restless legs syndrome Non-toxic multinodular goiter Surgical History History of excision of epidermal inclusion cyst (03/23/22) History of excision of mass (10/26/21) History of hysterectomy History of tooth extraction Hx of esophagogastroduodenoscopy Hx of excision of epidermal inclusion cyst (12/25/21) Hx of hand surgery S/P gastric bypass S/P trigger finger release Family History Family History Mother Diabetes mellitus CHF (congestive heart failure) Kidney failure Cervical cancer Brother No problems noted. Brother No problems noted. 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 Blood pressure normal. Heart rate normal. Respiration rate normal. Temperature normal. Oxygen saturation normal. Appearance: Alert. Oriented X3. No acute distress. Head: Normal external exam. Normocephalic. Atraumatic. No Miller signs noted. No raccoon eyes noted Eyes: PERRLA. EOMI. Conjunctiva and sclera normal. Eyelids normal. ENT: TM's Normal. Pharynx normal. Uvula midline. Moist mucous membranes. No trismus noted. No drooling noted. No muffled voice noted. Neck: Normal inspection. Neck supple. FROM. No adenopathy. Thyroid Normal. No meningeal signs. No neck mass noted. CVS: Normal heart rate and rhythm. Heart sound normal. No murmurs noted. Pulses normal throughout. Respiratory: No respiratory distress. Painless inspiration. Breath sounds normal. No wheezes/rales/rhonchi noted. Chest nontender. No accessory muscle usage noted or decreased air movement noted. Abdomen: Soft and nontender. Bowel sounds normal in all 4 quadrants. No distention noted. No organomegaly noted. No visible injury noted. Back: No CVA tenderness. Full range of motion noted. Skin: Skin warm and dry. Normal skin color. Normal skin turgor. No rashes/lesions/lacerations noted. Extremities: No lower extremity edema. Extremities exhibit normal range of motion. Tenderness over left inguinal ligament. Neuro: Oriented X 3. Cranial nerve exam: II-XII are grossly intact No motor deficit. No sensory deficit. Reflexes normal. Course Course Course Narrative: 61-year-old female came in with left inguinal pain for the past 2 weeks, normal bowel movement, normal passing flatus do not remember trauma to the left groin area, normal neuro exam able to ambulate on both heels and toes, patient with history of DVT no risk factor for DVT today patient has no recent travel with a negative D-dimer. Patient feels better oxycodone. X-ray is unremarkable. Medical Decision Making Lab Data Lab results reviewed: Yes I reviewed the patient's lab results. Result diagrams: 05/02/22 18:33 05/02/22 18:33 Labs: Lab Results 05/02/22 05/02/22 05/02/22 Range/Units 18:33 18:33 18:33 WBC 8.6 (4.8-10.8) X10*3/uL RBC 4.76 (4.20-5.50) X10*6/uL Hgb 13.8 (12.0-16.0) g/dl Hct 41.4 (37.0-47.0) % MCV 87.0 (80.0-98.0) fL MCH 29.0 (27.0-33.0) pg MCHC 33.3 (31.0-35.0) g/dl RDW 12.9 (11.0-16.0) % Plt Count 216 (160-400) X10*3/uL MPV 9.5 (9.4-12.3) fL Immature Gran % (Auto) 0.2 (0.0-0.4) % Neut % (Auto) 64.6 (45-73) % Lymph % (Auto) 27.6 (20-40) % [place] % (Auto) 5.1 (2-11) % Eos % (Auto) 2.2 (0-4) % Baso % (Auto) 0.3 (0-2) % Lymph # (Auto) 2.4 (1.2-4.9) X10*3/uL [place] # (Auto) 0.4 (0.1-1.2) X10*3/uL Eos # (Auto) 0.2 (0.0-0.4) X10*3/uL Baso # (Auto) 0.0 (0.0-0.2) X10*3/uL Abs Immat Gran (auto) 0.02 (0.00-0.03) X10*3/uL Absolute Neuts (auto) 5.5 (2.0-8.3) x10*3/uL Absolute Nucleated RBC 0.000 (0.0-0.012) X10*3/uL Nucleated RBC % (auto) 0.0 (0.0-0.2) /100WBC D-Dimer High Sensitivty < 150 NG/ML Sodium 141 (135-145) mmol/L Potassium 4.4 (3.3-5.1) mmol/L Chloride 102 (96-108) mmol/L Carbon Dioxide 31 H (22-29) mmol/L Anion Gap 12 (12-20) BUN 12 (9-16) mg/dL Creatinine 0.80 (0.5-1.4) mg/dL Estim Creat Clear Calc 71.0 Estimated GFR > 60 Random Glucose 123 H (60-115) mg/dL Calcium 9.3 (8.4-10.2) mg/dL Total Bilirubin 0.4 (0.0-1.0) mg/dL AST 19 (5-31) U/L ALT 28 (0-31) U/L Alkaline Phosphatase 80 (39-117) U/L Total Protein 6.8 (6.5-8.0) g/dL Albumin 4.2 (3.5-5.0) g/dL Imaging Data Left hip x-ray: Attestation: I personally reviewed and interpreted this imaging study as follows: Radiologist's impression: No acute pathology Left lower extremities ultrasound: Attestation: I personally reviewed and interpreted this imaging study as follows: Radiologist's impression: No DVT. Discharge Plan Discharge Clinical Impression: Left groin pain Patient Disposition: Home, Self-Care Instructions: Hip Sprain (ED) Prescriptions: No Action cholecalciferol (vitamin D3) 50 mcg (2,000 unit) capsule 50 mcg PO DAILY Qty: 30 11RF pantoprazole 40 mg tablet,delayed release (DR/EC) 40 mg PO DAILY Qty: 60 6RF (DME) FreeStyle Lite Strips Strip See Rx Instructions .ROUTE .COMPLEX Qty: 150 6RF Dose Instruction: USE TO TEST BLOOD SUGAR TWICE DAILY Rx Instructions: USE TO TEST BLOOD SUGAR TWICE DAILY cyclobenzaprine 10 mg tablet 10 mg PO Q8H Qty: 20 0RF hydroxyzine HCl 25 mg tablet 50 mg PO BEDTIME sertraline 100 mg tablet 1 tab PO BEDTIME pramipexole 0.25 mg tablet 1 tab DAILY tizanidine 4 mg tablet 1 tab PO BEDTIME acetaminophen [Tylenol Extra Strength] 500 mg tablet 1,000 mg PO QID PRN (Reason: fever or pain) Qty: 14 0RF hydrocodone-acetaminophen 5-325 mg tablet 1 - 2 tab PO Q6H PRN (Reason: pain) Qty: 20 0RF Rx Instructions: Partial Fill upon patient request. albuterol sulfate 90 mcg/actuation HFA aerosol inhaler 2 puff inhalation Q4-6H PRN (Reason: shortness of breath or wheezing) Qty: 6.7 0RF fluticasone propionate [Flonase Allergy Relief] 50 mcg/actuation spray,suspension 2 spray intranasal DAILY Qty: 16 0RF Rx Instructions: administer into each nostril lidocaine 5 % adhesive patch,medicated 1 patch topical DAILY PRN (Reason: pain) Qty: 15 0RF Rx Instructions: leave on most painful area for up to 12 hrs oxycodone 5 mg tablet 5 - 10 mg PO Q6H PRN (Reason: pain) Qty: 20 0RF Rx Instructions: Partial Fill upon patient request. metformin 500 mg tablet extended release 24 hr 500 mg PO DAILY 30 Days Qty: 30 5RF acarbose 25 mg tablet 25 mg PO TID 30 Days Qty: 90 4RF hydrochlorothiazide 12.5 mg capsule 12.5 mg PO DAILY ropinirole 1 mg tablet 1 mg PO BEDTIME Rx Instructions: administer 1-3 hours before bedtime chlorhexidine gluconate [Hibiclens] 4 % liquid 1 appl topical .COMPLEX 20 Days Qty: 237 4RF Rx Instructions: 1 appl topical 3-4 times weekly; lather all skin in shower and leave on for one minute before washing off. tramadol 50 mg tablet 50 mg PO BEDTIME 5 Days Qty: 5 0RF oxycodone 5 mg tablet 5 mg PO BEDTIME PRN (Reason: pain) 5 Days Qty: 5 0RF Rx Instructions: Partial Fill upon patient request. (DME) blood-glucose meter [FreeStyle Lite Meter] Kit See Rx Instructions .Route Qty: 1 0RF Rx Instructions: As directed test blood sugar two times a day Referrals: [facility] [Primary Care Provider] -
[2022-05-02] MEDS: oxyCODONE HCl Immed Release 5 MG TABLET PO ×2 (20:33→22:51)
[2022-05-02 20:59] LABS: Appearance Urine Clear; Color Urine Yellow; Glucose Urine UA 500 mg/dL (Negative); Leukocyte Esterase Urine Negative (Negative); Nitrite Urine Negative (Negative); PH 5.5 (5.0-9.0); Urine Blood Negative (Negative); Urine Ketones Negative (Negative); Urine Protein Negative (Neg-Trace)
[2022-05-02 21:01] LABS: UPreg QC Valid YES; Urine Pregnancy NEGATIVE (NEGATIVE)
== END 2022-05-02 23:01 | disposition home or self-care (01) ==
PROVIDERS: Emergency Provider Emergency Medicine
DX: R10.32 Left lower quadrant pain (principal); M79.605 Pain in left leg; E11.9 Type 2 diabetes mellitus without complications; E78.5 Hyperlipidemia, unspecified; F17.210 Nicotine dependence, cigarettes, uncomplicated
CPT/HCPCS: 36415; 73502; 80053; 81003; 81025; 85025; 85379; 93971; 99283; 99284

== ENCOUNTER 2022-05-19 22:18 | Emergency (ER) | payer MEDICAID, SELFPAY ==
--- NOTE | ~2022-05-19 | CT_ITS ---
EXAMINATION: CT HEAD WITHOUT CONTRAST CT CERVICAL SPINE WITHOUT CONTRAST CLINICAL INFORMATION: Fall. Head strike. Pain. COMPARISON: None. TECHNIQUE: Imaging was performed from the skull base to vertex without intravenous administration of contrast. In addition, helical noncontrast CT imaging was acquired through the cervical spine and source images were reviewed along with axial reconstructions and sagittal and coronal MPRs. [This CT examination was performed using dose optimization techniques as appropriate, variously including the following: *Automated exposure control *Adjustment of mA and/or kV according to patient size (this includes techniques or standardized protocols for targeted exams where dose is matched to indication/reason for exam; i.e. extremities or head) *Use of iterative reconstruction technique] DLP: 1047 mGy-cm FINDINGS: HEAD: No intracranial mass, hemorrhage, or midline shift is visualized. The ventricles and sulci are proportional. No extra-axial collections are identified. The paranasal sinuses and mastoid air cells are well aerated. CERVICAL SPINE: There is no evidence of acute cervical spine fracture. Vertebral bodies remain normal in height. Cervical vertebrae have normal alignment. Cervical disc heights are normal. The facet joints are normal. No pre- or paravertebral soft tissue abnormality is identified. Limited assessment of the lung apices is unremarkable. CT/CT cervical spine wo IV con IMPRESSION: 1. No acute intracranial pathology. 2. No CT evidence of acute cervical spine fracture or traumatic subluxation
--- NOTE | ~2022-05-19 | XR_ITS ---
EXAMINATION: LEFT ELBOW, LEFT KNEE CLINICAL INFORMATION: Fall COMPARISON: MRI left elbow 01/22/2022 TECHNIQUE: 3 views elbow, 4 views knee FINDINGS: Knee: Some minimal degenerative changes are present with some narrowing in the medial compartment. No joint effusion, fractures or chondrocalcinosis is present. Elbow: No acute fractures or dislocation is seen. A small bony density is seen just above the medial radial head consistent with a small intra-articular loose osseous body. An avulsion fracture is much less likely as no joint effusion is present. XR/XR knee LT 4V IMPRESSION: No evidence of an acute osseous injury. Mild degenerative changes in the knee. Loose osseous body in the elbow joint.
--- NOTE | ~2022-05-19 | CT_ITS ---
EXAMINATION: CT HEAD WITHOUT CONTRAST CT CERVICAL SPINE WITHOUT CONTRAST CLINICAL INFORMATION: Fall. Head strike. Pain. COMPARISON: None. TECHNIQUE: Imaging was performed from the skull base to vertex without intravenous administration of contrast. In addition, helical noncontrast CT imaging was acquired through the cervical spine and source images were reviewed along with axial reconstructions and sagittal and coronal MPRs. [This CT examination was performed using dose optimization techniques as appropriate, variously including the following: *Automated exposure control *Adjustment of mA and/or kV according to patient size (this includes techniques or standardized protocols for targeted exams where dose is matched to indication/reason for exam; i.e. extremities or head) *Use of iterative reconstruction technique] DLP: 1047 mGy-cm FINDINGS: HEAD: No intracranial mass, hemorrhage, or midline shift is visualized. The ventricles and sulci are proportional. No extra-axial collections are identified. The paranasal sinuses and mastoid air cells are well aerated. CERVICAL SPINE: There is no evidence of acute cervical spine fracture. Vertebral bodies remain normal in height. Cervical vertebrae have normal alignment. Cervical disc heights are normal. The facet joints are normal. No pre- or paravertebral soft tissue abnormality is identified. Limited assessment of the lung apices is unremarkable. CT/CT head/brain wo IV con IMPRESSION: 1. No acute intracranial pathology. 2. No CT evidence of acute cervical spine fracture or traumatic subluxation
--- NOTE | ~2022-05-19 | XR_ITS ---
EXAMINATION: LEFT ELBOW, LEFT KNEE CLINICAL INFORMATION: Fall COMPARISON: MRI left elbow 01/22/2022 TECHNIQUE: 3 views elbow, 4 views knee FINDINGS: Knee: Some minimal degenerative changes are present with some narrowing in the medial compartment. No joint effusion, fractures or chondrocalcinosis is present. Elbow: No acute fractures or dislocation is seen. A small bony density is seen just above the medial radial head consistent with a small intra-articular loose osseous body. An avulsion fracture is much less likely as no joint effusion is present. XR/XR elbow LT min 3V IMPRESSION: No evidence of an acute osseous injury. Mild degenerative changes in the knee. Loose osseous body in the elbow joint.
[2022-05-19 22:21] VITALS: BP 132/60; PULSE 105; RESP 20; TEMP 36.1; O2SAT 97; BMI 27.3
--- NOTE | 2022-05-19 23:13 | PC.NURSE ---
Pt. on compliance monitor at this time
--- OUTSIDE RECORDS SUMMARY | 2022-05-19 23:13 | XMS_ITS | Continuity of Care Document ---
:1960 Author Organization [facility] Address [address] [place] [id number]- Care Team Providers Name Role Phone Joyce Tapia MD Primary Care Physician Encounter [facility] [place] Date(s): 12/04/21 - 01/03/22 [facility] [address] [place] [id number] Allergies, Adverse Reactions, Alerts Substance Reaction Severity Status penicillin Active sulfADIAZINE skin reaction Active Latex Active theophylline Active Compazine Active Bactrim Active Medications Albuterol 3 times a day, PRN Wheezing/Shortness of Breath, 0 Refills, Maintenance Start Date: 02/27/13 Status: OrderedAspirin Low Dose 81 mg oral enteric coated tablet 1 tablet = 81 mg, By Mouth, Daily, PRN Pain , Mild, 0 Refills, Maintenance Start Date: 02/27/13 Status: OrderedCeleXA 20 mg oral tablet 20 mg, 1, tablet, By Mouth, Daily, Refills 0, Maintenance, 11/02/16 7:16:31 Start Date: 11/02/16 Status: Orderedferrous sulfate 325 mg oral tablet 1 tablet = 325 mg, By Mouth, 3 times a day, # 90 tablet, 0 Refills, Maintenance, 11/11/21 7:40:00 EDT, Tablet, Partial fill upon patient request if the prescription is for a schedule II opioid drug. Start Date: 11/11/21 Status: OrderedHydrochlorothiazide = 12.5 mg, By Mouth, Daily, 0 Refills, Maintenance, 02/27/13 14:18:24 EDT Start Date: 02/27/13 Status: OrderedhydrOXYzine hydrochloride 25 mg oral tablet 1 capsule, By Mouth, 4 times a day, PRN for itching, # 40 capsule, 0 Refills, Maintenance, 11/11/21 7:41:00 EDT, Capsule, Partial fill upon patient request if the prescription is for a schedule II opioid drug. Start Date: 11/11/21 Stop Date: 11/21/21 Status: Orderedmeclizine 12.5 mg oral tablet 1 tablet = 12.5 mg, By Mouth, 3 times a day, PRN for dizziness, # 30 tablet, 0 Refills, Maintenance,04/05/16 9:06:10, Tablet Start Date: 04/05/16 Status: OrderedmetFORMIN 500 mg oral tablet 1 tablet = 500 mg, By Mouth, 2 times a day, # 180 tablet, 0 Refills, Maintenance, 11/11/21 7:45:00 EDT, Tablet, Partial fill upon patient request if the prescription is for a schedule II opioid drug. Start Date: 11/11/21 Status: Orderedpramipexole 0.25 mg oral tablet 1 tablet = 0.25 mg, By Mouth, Daily, # 90 tablet, 5 Refills, Maintenance, 11/11/21 7:43:00 EDT, Tablet, Partial fill upon patient request if the prescription is for a schedule II opioid drug. Start Date: 11/11/21 Status: Orderedsertraline 100 mg oral tablet 1 tablet = 100 mg, By Mouth, Daily, # 30 tablet, 0 Refills, Maintenance, 11/11/21 7:41:00 EDT, Tablet, Partial fill upon patient request if the prescription is for a schedule II opioid drug. Start Date: 11/11/21 Status: OrderedtiZANidine 4 mg oral capsule 1 capsule = 4 mg, By Mouth, 3 times a day, # 90 capsule, 0 Refills, Maintenance, 11/11/21 7:43:00 EDT, Capsule, Partial fill upon patient request if the prescription is for a schedule II opioid drug. Start Date: 11/11/21 Status: OrderedVitamin B-12 1000 mcg oral tablet 1,000 mcg, 1, tablet, By Mouth, Daily, # 30 tablet, Refills 0, Maintenance, 11/11/21 7:41:00 EDT, Partial fill upon patient request if the prescription is for a schedule II opioid drug. Start Date: 11/11/21 Status: OrderedVitamin D3 oral tablet 1 tablet = 10 mcg, By Mouth, Daily, # 30 tablet, 0 Refills, Maintenance, 11/11/21 7:43:00 EDT, Tablet, Partial fill upon patient request if the prescription is for a schedule II opioid drug. Start Date: 11/11/21 Status: Ordered Problem List Condition Effective Dates Status Health Status Informant Breast pain(Confirmed) Active Sacroiliac joint dysfunction of right Active side(Confirmed) Social History Social History Type Response Smoking Status Current every day smoker; Ty pe: Cigarettes entered on: 11/20/14 Sex
--- OUTSIDE RECORDS SUMMARY | 2022-05-19 23:13 | XMS_ITS | Continuity of Care Document ---
:1960 Author Organization [facility] Address [address] [place] [id number]- Care Team Providers Name Role Phone Joyce Tapia MD Primary Care Physician [place] [facility] [place] [facility] [place]/18/[place] - 07/18/[address] [id number] Attending Physician: James Ding Admitting Physician: AdmtrJames Referring Physician: Admtr, [id number] Allergies, Adverse Reactions, Alerts Substance Reaction Severity Status penicillin Active sulfADIAZINE skin reaction Active theophylline Active Compazine Active Latex Active Medications Albuterol 3 times a day, PRN Wheezing/Shortness of Breath, 0 Refills, Maintenance Start Date: 02/27/13 Status: OrderedAmbien Tablet = 10 mg, By Mouth, Daily at bedtime, 0 Refills, Maintenance Start Date: 08/18/11 Status: OrderedApidra Subcutaneous Infusion, 0 Refills, Maintenance, 11/20/14 10:23:08 Start Date: 11/20/14 Status: OrderedAspirin Low Dose 81 mg oral enteric coated tablet 1 tablet = 81 mg, By Mouth, Daily, PRN Pain , Mild, 0 Refills, Maintenance Start Date: 02/27/13 Status: OrderedCeleXA 20 mg oral tablet 20 mg, 1, tablet, By Mouth, Daily, Refills 0, Maintenance, 11/02/16 7:16:31 Start Date: 11/02/16 Status: OrderedFlonase 1 sprays, Daily, 0 Refills, Maintenance Start Date: 02/27/13 Status: OrderedHydrochlorothiazide = 25 mg, By Mouth, Daily, 0 Refills, Maintenance Start Date: 02/27/13 Status: OrderedLasix 40 mg oral tablet 40 mg, 1, tablet, By Mouth, 2 times a day, Refills 0, Maintenance, 04/05/16 8:56:56 Start Date: 04/05/16 Status: Orderedloratadine 10 mg oral tablet 10 mg, 1, tablet, By Mouth, Daily, # 30 tablet, Refills 0, Maintenance, 04/05/16 9:05:56 Start Date: 04/05/16 Status: Orderedmeclizine 12.5 mg oral tablet 1 tablet = 12.5 mg, By Mouth, 3 times a day, PRN for dizziness, # 30 tablet, 0 Refills, Maintenance,04/05/16 9:06:10, Tablet Start Date: 04/05/16 Status: OrderedPercocet-5/325 325 mg-5 mg oral tablet 1, tablet, By Mouth, Every 4 hours, PRN, Refills 0, Tot. Refills 0, Maintenance, for pain, 04/05/16 8:56:45, Tablet Start Date: 04/05/16 Status: OrderedPotassium Chloride = 20 mEq, By Mouth, Daily, 0 Refills, Maintenance, 10/22/16 11:19:04 Start Date: 10/22/16 Status: OrderedSimvastatin = 40 mg, By Mouth, Daily at bedtime, 0 Refills, Maintenance, 11/20/14 10:22:43 Start Date: 11/20/14 Status: Orderedvit D and sulfate vitamin vit D and sulfate vitamin, Refills 0, Maintenance, 06/05/21 10:05:00 EST, Supply Start Date: 06/05/21 Status: Orderedzoloft zoloft, Refills 0, Maintenance, 06/05/21 10:05:00 EST, Supply Start Date: 06/05/21 Status: Ordered Problem List Condition Effective Dates Status Health Status Informant Breast pain(Confirmed) Active Social History Social History Type Response Smoking Status Current every day smoker; Ty pe: Cigarettes entered on: 11/20/14 Sex
--- OUTSIDE RECORDS SUMMARY | 2022-05-19 23:13 | XMS_ITS | Continuity of Care Document ---
:1960 Author Organization [facility] Address [address] [place] [id number]- Care Team Providers Name Role Phone Joyce Tapia MD Primary Care Physician Encounter [facility] [place] R [id number] Date(s): 12/08/21 - 02/25/22 [facility] [address] [place] [id number] Attending Physician: Elizabet Tran MD Admitting Physician: Elizabet Tran MD Allergies, Adverse Reactions, Alerts Substance Reaction Severity Status penicillin Active sulfADIAZINE skin reaction Active theophylline Active Compazine Active Bactrim Active Latex Active Medications Albuterol 3 times [...] Ty pe: Cigarettes entered on: 11/20/14 Sex Care Team PersonnelName: Joyce Tapia MD Address: [address] [place] [id number]
--- OUTSIDE RECORDS SUMMARY | 2022-05-19 23:13 | XMS_ITS | Continuity of Care Document ---
:1960 Author Organization [facility] Address [address] [place] [phone]- Care Team Providers Name Role Phone Joyce Tapia MD Primary Care Physician Encounter [facility] [place] Date(s): 12/07/21 - 01/06/[facility] [address] [place] [id number] Allergies, Adverse Reactions, Alerts Substance [...]
--- OUTSIDE RECORDS SUMMARY | 2022-05-19 23:13 | XMS_ITS | Continuity of Care Document ---
:1960 Author Organization [facility] Address [address] [place] [id number]- Care Team Providers Name Role Phone Joyce Tapia MD Primary Care Physician [place] [facility] [place] [id number] Date(s): 11/11/21 - 12/18/21 [facility] [address] [place] [id number]- Attending Physician: Anupama Vera MD Admitting Physician: Anupama Vera MD Allergies, Adverse Reactions, Alerts Substance Reaction [...]
--- OUTSIDE RECORDS SUMMARY | 2022-05-19 23:13 | XMS_ITS | Continuity of Care Document ---
:1960 Author Organization [facility] Address [address] [place] [id number]- Care Team Providers Name Role Phone Joyce Tapia MD Primary Care Physician [place] [facility] [place] [id number] Date(s): 01/26/22 - 04/09/22 [facility] [address] [place] [id number] Attending Physician: Elizabet Tran MD Admitting Physician: [...] Date: 11/11/21 Status: Ordered Problem List Condition Confirmation Course Effective Dates Status Health Stat us Informant Breast pain Confirmed Active Sacroiliac joint Confirmed Active dysfunction of right side Social History Social History Type Response Smoking Status Current every day smoker; Ty pe: Cigarettes entered on: 11/20/14 Sex Patient Care team information PersonnelName: Willie KAMARA, Joyce Daniels Address: Address: [address] [place] [id number]
[2022-05-19 23:19] VITALS: BP 124/64; PULSE 84; RESP 16; TEMP 36.8; O2SAT 97
--- NOTE | 2022-05-19 23:53 | ED_ITS ---
HPI - Fall General Chief Complaint: Fall Stated Complaint: Fall Time Seen by Provider: 05/19/22 23:39 Source: patient Mode of arrival: ambulatory History of Present Illness HPI Narrative: 61-year-old female who states that she fell off of a ladder earlier today while helping her friend paint. She denies any use of blood thinners or loss of consciousness and did not develop any discomfort until she got home and started to take a warm bath and then states that she had significant musculoskeletal pain on the left side. Related Data Home Medications Medication Instructions Recorded Confirmed hydrochlorothiazide 12.5 mg capsule 12.5 mg PO DAILY 05/09/20 04/15/22 hydroxyzine HCl 25 mg tablet 50 mg PO BEDTIME 06/04/20 04/15/22 ropinirole 1 mg tablet 1 mg PO BEDTIME 10/28/20 04/15/22 pramipexole 0.25 mg tablet 1 tab DAILY 10/20/21 04/15/22 sertraline 100 mg tablet 1 tab PO BEDTIME 10/20/21 04/15/22 tizanidine 4 mg tablet 1 tab PO BEDTIME 10/20/21 04/15/22 Previous Rx's Medication Instructions Recorded cholecalciferol (vitamin D3) 50 50 mcg PO DAILY #30 caps 12/15/20 mcg (2,000 unit) capsule acarbose 25 mg tablet 25 mg PO TID 30 days #90 tabs 12/31/20 metformin 500 mg tablet,extended 500 mg PO DAILY 30 days #30 tabs 12/31/20 release 24 hr cyclobenzaprine 10 mg tablet 10 mg PO Q8H #20 tabs 03/01/21 pantoprazole 40 mg tablet,delayed 40 mg PO DAILY #60 tabs 04/06/21 release albuterol sulfate 90 mcg/actuation 2 puff inhalation Q4-6H PRN 06/21/21 aerosol inhaler shortness of breath or wheezing #6.7 grams fluticasone propionate 50 2 spray intranasal DAILY #16 grams 06/21/21 mcg/actuation nasal spray,suspension (Flonase Allergy Relief) blood-glucose meter (FreeStyle #1 ea 08/21/21 Lite Meter kit) chlorhexidine gluconate 4 % 1 appl topical .COMPLEX 20 days 09/04/21 topical liquid (Hibiclens) #237 mL lidocaine 5 % topical patch 1 patch topical DAILY PRN pain #15 02/26/22 ea acetaminophen 500 mg tablet 1,000 mg PO QID PRN fever or pain 03/10/22 (Tylenol Extra Strength) #14 tabs blood sugar diagnostic (FreeStyle #150 strips 03/30/22 Lite Strips) hydrocodone 5 mg-acetaminophen 325 1 - 2 tab PO Q6H PRN pain #20 tabs 04/15/22 mg tablet oxycodone 5 mg tablet 5 mg PO BEDTIME PRN pain 5 days #5 04/19/22 tabs oxycodone 5 mg tablet 5 - 10 mg PO Q6H PRN pain #20 tabs 04/24/22 tramadol 50 mg tablet 50 mg PO BEDTIME 5 days #5 tabs 04/30/22 cyclobenzaprine 5 mg tablet 5 mg PO TID PRN muscle spasm #14 05/02/22 tabs oxycodone 5 mg tablet 5 mg PO Q8H PRN pain #10 tabs 05/02/22 cyclobenzaprine 5 mg tablet 5 mg PO BEDTIME PRN muscle spasm 05/20/22 #4 tabs Allergies Allergy/AdvReac Type Severity Reaction Status Date / Time Penicillins Allergy Intermediate HIVES Verified 05/19/22 22:25 sulfamethoxazole Allergy Intermediate BLISTERS- Verified 05/19/22 22:25 [From BACTRIM] DELGADO - NERVE ENDINGS IN HAND/ERYTHEMA MULTIFORM trimethoprim [From BACTRIM] Allergy Intermediate BLISTERS- Verified 05/19/22 22:25 DELGADO - NERVE ENDINGS IN HAND/ERYTHEMA MULTIFORM latex [Latex] Allergy Mild RASH Verified 05/19/22 22:25 theophylline AdvReac Intermediate TACHYCARDIA Verified 05/19/22 22:25 TEGADERM Allergy Intermediate SKIN TEARS Uncoded 05/19/22 22:25 From COMPAZINE AdvReac Severe SEIZURES Uncoded 05/19/22 22:25 Review of Systems Review of Systems: Pertinent positives and negatives as stated in HPI and 10 point review of systems is otherwise negative. [facility] Past Medical History Source: nursing notes reviewed Medical History Anastomotic ulcer Anxiety Asthma Borderline diabetes Depression Diabetes type 2, controlled DVT (deep venous thrombosis) Dyslipidemia GERD (gastroesophageal reflux disease) High cholesterol History of restless legs syndrome Non-toxic multinodular goiter Surgical History History of excision of epidermal inclusion cyst (03/23/22) History of excision of mass (10/26/21) History of hysterectomy History of tooth extraction Hx of esophagogastroduodenoscopy Hx of excision of epidermal inclusion cyst (12/25/21) Hx of hand surgery S/P gastric bypass S/P trigger finger release Family History Family History Mother Diabetes mellitus CHF (congestive heart failure) Kidney failure Cervical cancer Brother No problems noted. Brother No problems noted. 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 GENERAL: Well developed, well nourished, in no acute distress. HEAD: Normocephalic/atraumatic EYES: PERRLA, EOMI EARS: Ext canals without abnormality NOSE: Nares patent bilateral OROPHARYNX: no oral lesions noted, posterior pharynx clear NECK: Supple, no adenopathy, no midline cervical spine tenderness, no step-offs LUNGS: Normal breath sounds. No adventitious sounds or accessory muscle use. SpO2<97> CARDIOVASCULAR: Regular rate and rhythm without noted murmurs, no JVD or lower extremity edema. ABDOMEN: Soft, non-tender, non-distended with bowel sounds. PELVIS: Stable, nontender MUSCULOSKELETAL: No tenderness, deformities, or effusions noted on gross inspection. EXTREMITIES: No cyanosis, clubbing or edema; LEFT KNEE: There is pain without swelling at the left knee, no deformity SKIN: Inspection of the skin reveals no rashes, NEUROLOGIC: Alert and oriented x 4. Strength and sensation to light touch were grossly intact x 4. Course Course Course Narrative: 61-year-old female with history and clinical presentation consistent with musculoskeletal pain and on review of all investigations there are no acute findings to suggest fracture, dislocation. Patient was treated with combination analgesics, muscle relaxant as well as lidocaine patch. She is now discharged home in stable condition. Medications Administered Discontinued Medications Generic Name Dose Route Start Last Admin Trade Name Richardq PRN Reason Stop Dose Admin Acetaminophen 975 mg 05/19/22 23:53 05/20/22 00:02 Acetaminophen 325 Mg Tablet PO 05/19/22 23:54 975 mg ONCE ONE Administration Cyclobenzaprine HCl 10 mg 05/19/22 23:53 05/20/22 00:02 Cyclobenzaprine Hcl 10 Mg Tablet PO 05/19/22 23:54 10 mg ONCE ONE Administration Ketorolac Tromethamine 15 mg 05/19/22 23:53 05/20/22 00:02 Ketorolac Tromethamine 30 Mg/Ml Vial IVPUSH 05/19/22 23:54 15 mg ONCE ONE Administration Lidocaine 1 patch 05/19/22 23:55 05/20/22 00:02 Lidocaine 4 % Patch Adh..Patch TRANSDERMA 05/19/22 23:56 1 patch ONCE ONE Administration Protocol Discharge Plan Discharge Clinical Impression: Fall Patient Disposition: Home, Self-Care Instructions: Musculoskeletal Pain (ED), Muscle Spasm (ED), Fall Prevention (ED) Additional Instructions: 1. Resume all home medications as prescribed. 2. Tylenol 1000 mg, orally, every 6 hours as needed for pain control. Do not exceed 4000 mg within 24 hours. 3. Ibuprofen 400 mg, orally with milk or food, every 6 hours as needed for breakthrough pain, try to limit the amount of usage given your history of gastric bypass surgery. 4. Lidocaine patch, apply to area of maximal tenderness as directed on the ou tside packaging. 5. Follow-up with your primary care provider in the morning for re-evaluation. Return to the ER for worsening symptoms. Prescriptions: New cyclobenzaprine 5 mg tablet 5 mg PO BEDTIME PRN (Reason: muscle spasm) Qty: 4 0RF No Action cholecalciferol (vitamin D3) 50 mcg (2,000 unit) capsule 50 mcg PO DAILY Qty: 30 11RF pantoprazole 40 mg tablet,delayed release (DR/EC) 40 mg PO DAILY Qty: 60 6RF (DME) FreeStyle Lite Strips Strip See Rx Instructions .ROUTE .COMPLEX Qty: 150 6RF Dose Instruction: USE TO TEST BLOOD SUGAR TWICE DAILY Rx Instructions: USE TO TEST BLOOD SUGAR TWICE DAILY cyclobenzaprine 10 mg tablet 10 mg PO Q8H Qty: 20 0RF hydroxyzine HCl 25 mg tablet 50 mg PO BEDTIME sertraline 100 mg tablet 1 tab PO BEDTIME pramipexole 0.25 mg tablet 1 tab DAILY tizanidine 4 mg tablet 1 tab PO BEDTIME acetaminophen [Tylenol Extra Strength] 500 mg tablet 1,000 mg PO QID PRN (Reason: fever or pain) Qty: 14 0RF hydrocodone-acetaminophen 5-325 mg tablet 1 - 2 tab PO Q6H PRN (Reason: pain) Qty: 20 0RF Rx Instructions: Partial Fill upon patient request. cyclobenzaprine 5 mg tablet 5 mg PO TID PRN (Reason: muscle spasm) Qty: 14 0RF oxycodone 5 mg tablet 5 mg PO Q8H PRN (Reason: pain) Qty: 10 0RF Rx Instructions: Partial Fill upon patient request. albuterol sulfate 90 mcg/actuation HFA aerosol inhaler 2 puff inhalation Q4-6H PRN (Reason: shortness of breath or wheezing) Qty: 6.7 0RF fluticasone propionate [Flonase Allergy Relief] 50 mcg/actuation spray,suspension 2 spray intranasal DAILY Qty: 16 0RF Rx Instructions: administer into each nostril lidocaine 5 % adhesive patch,medicated 1 patch topical DAILY PRN (Reason: pain) Qty: 15 0RF Rx Instructions: leave on most painful area for up to 12 hrs oxycodone 5 mg tablet 5 - 10 mg PO Q6H PRN (Reason: pain) Qty: 20 0RF Rx Instructions: Partial Fill upon patient request. metformin 500 mg tablet extended release 24 hr 500 mg PO DAILY 30 Days Qty: 30 5RF acarbose 25 mg tablet 25 mg PO TID 30 Days Qty: 90 4RF hydrochlorothiazide 12.5 mg capsule 12.5 mg PO DAILY ropinirole 1 mg tablet 1 mg PO BEDTIME Rx Instructions: administer 1-3 hours before bedtime chlorhexidine gluconate [Hibiclens] 4 % liquid 1 appl topical .COMPLEX 20 Days Qty: 237 4RF Rx Instructions: 1 appl topical 3-4 times weekly; lather all skin in shower and leave on for one minute before washing off. tramadol 50 mg tablet 50 mg PO BEDTIME 5 Days Qty: 5 0RF oxycodone 5 mg tablet 5 mg PO BEDTIME PRN (Reason: pain) 5 Days Qty: 5 0RF Rx Instructions: Partial Fill upon patient request. (DME) blood-glucose meter [FreeStyle Lite Meter] Kit See Rx Instructions .Route Qty: 1 0RF Rx Instructions: As directed test blood sugar two times a day Referrals: Joyce Tapia MD [Primary Care Provider] - Stand Alone Forms: Work/School Release
[2022-05-20] MEDS: Ketorolac Tromethamine 30 MG/ML VIAL 15 MG IVPUSH (00:02)
[2022-05-20] MEDS: Acetaminophen 325 MG TABLET 975 MG PO (00:02)
[2022-05-20] MEDS: Cyclobenzaprine HCl 10 MG TABLET PO (00:02)
[2022-05-20] MEDS: Lidocaine 4 % Patch ADH..PATCH 1 PATCH TRANSDERMA (00:02)
[2022-05-20 00:25] VITALS: BP 131/75; PULSE 80; RESP 16; TEMP 36.9; O2SAT 98
== END 2022-05-20 00:35 | disposition home or self-care (01) ==
PROVIDERS: Emergency Provider Student in an Organized Health Care Education/Training Program; PCP Student in an Organized Health Care Education/Training Program
DX: Z04.3 Encounter for examination and observation following other accident (principal); M25.562 Pain in left knee; M79.10 Myalgia, unspecified site
CPT/HCPCS: 70450; 72125; 73080; 73564; 96374; 99284; J1885

== ENCOUNTER 2022-05-21 18:29 | Emergency (ER) | payer MEDICAID, SELFPAY ==
--- NOTE | ~2022-05-21 | US_ITS ---
EXAMINATION: US VENOUS ULTRASOUND WITH DOPPLER LOWER EXTREMITY, LEFT CLINICAL INFORMATION: Left lower extremity calf pain and swelling. History of DVT COMPARISON: Left lower extremity venous ultrasound 05/02/2022 TECHNIQUE: Ultrasound of the deep veins is performed from the hip to the calf with compression sonography and color and pulse Doppler assessment. Spectral analysis with color-flow imaging is performed. FINDINGS: There is normal venous compression and respiratory variation and augmented flow. The visualized common femoral vein, superficial femoral vein, profunda femoral vein, popliteal vein, and the trifurcation region shows no evidence of deep venous thrombosis. There is no significant popliteal fossa cyst. Small amount of knee joint fluid/effusion. If the patient's symptoms persist, followup ultrasound in 5 days 7 days might be of value to exclude proximal propagation from a non-visualized calf vein. US/US venous duplex LE IMPRESSION: No DVT demonstrated in the left lower extremity.
[2022-05-21 20:29] VITALS: BP 131/77; PULSE 92; RESP 16; TEMP 36.4; O2SAT 98; BMI 27.3
--- NOTE | 2022-05-21 20:32 | ED_ITS ---
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 Seen by Provider: 05/21/22 22:43 Related Data Home Medications Medication Instructions Recorded Confirmed hydrochlorothiazide 12.5 mg capsule 12.5 mg PO DAILY 05/09/20 04/15/22 hydroxyzine HCl 25 mg tablet 50 mg PO BEDTIME 06/04/20 04/15/22 ropinirole 1 mg tablet 1 mg PO BEDTIME 10/28/20 04/15/22 pramipexole 0.25 mg tablet 1 tab DAILY 10/20/21 04/15/22 sertraline 100 mg tablet 1 tab PO BEDTIME 10/20/21 04/15/22 tizanidine 4 mg tablet 1 tab PO BEDTIME 10/20/21 04/15/22 Previous Rx's Medication Instructions Recorded cholecalciferol (vitamin D3) 50 50 mcg PO DAILY #30 caps 12/15/20 mcg (2,000 unit) capsule acarbose 25 mg tablet 25 mg PO TID 30 days #90 tabs 12/31/20 metformin 500 mg tablet,extended 500 mg PO DAILY 30 days #30 tabs 12/31/20 release 24 hr cyclobenzaprine 10 mg tablet 10 mg PO Q8H #20 tabs 03/01/21 pantoprazole 40 mg tablet,delayed 40 mg PO DAILY #60 tabs 04/06/21 release albuterol sulfate 90 mcg/actuation 2 puff inhalation Q4-6H PRN 06/21/21 aerosol inhaler shortness of breath or wheezing #6.7 grams fluticasone propionate 50 2 spray intranasal DAILY #16 grams 06/21/21 mcg/actuation nasal spray,suspension (Flonase Allergy Relief) blood-glucose meter (FreeStyle #1 ea 08/21/21 Lite Meter kit) chlorhexidine gluconate 4 % 1 appl topical .COMPLEX 20 days 09/04/21 topical liquid (Hibiclens) #237 mL lidocaine 5 % topical patch 1 patch topical DAILY PRN pain #15 02/26/22 ea acetaminophen 500 mg tablet 1,000 mg PO QID PRN fever or pain 03/10/22 (Tylenol Extra Strength) #14 tabs blood sugar diagnostic (FreeStyle #150 strips 03/30/22 Lite Strips) hydrocodone 5 mg-acetaminophen 325 1 - 2 tab PO Q6H PRN pain #20 tabs 04/15/22 mg tablet oxycodone 5 mg tablet 5 mg PO BEDTIME PRN pain 5 days #5 04/19/22 tabs oxycodone 5 mg tablet 5 - 10 mg PO Q6H PRN pain #20 tabs 04/24/22 tramadol 50 mg tablet 50 mg PO BEDTIME 5 days #5 tabs 04/30/22 cyclobenzaprine 5 mg tablet 5 mg PO TID PRN muscle spasm #14 05/02/22 tabs oxycodone 5 mg tablet 5 mg PO Q8H PRN pain #10 tabs 05/02/22 cyclobenzaprine 5 mg tablet 5 mg PO BEDTIME PRN muscle spasm 05/20/22 #4 tabs cephalexin 500 mg capsule 500 mg PO BID #13 caps 05/22/22 doxycycline hyclate 100 mg tablet 100 mg PO BID #13 tabs 05/22/22 oxycodone 5 mg tablet 5 mg PO BID PRN pain #6 tabs 05/22/22 Allergies Allergy/AdvReac Type Severity Reaction Status Date / Time Penicillins Allergy Intermediate HIVES Verified 05/19/22 22:25 sulfamethoxazole Allergy Intermediate BLISTERS- Verified 05/19/22 22:25 [From BACTRIM] DELGADO - NERVE ENDINGS IN HAND/ERYTHEMA MULTIFORM trimethoprim [From BACTRIM] Allergy Intermediate BLISTERS- Verified 05/19/22 22:25 DELGADO - NERVE ENDINGS IN HAND/ERYTHEMA MULTIFORM latex [Latex] Allergy Mild RASH Verified 05/19/22 22:25 theophylline AdvReac Intermediate TACHYCARDIA Verified 05/19/22 22:25 TEGADERM Allergy Intermediate SKIN TEARS Uncoded 05/19/22 22:25 From COMPAZINE AdvReac Severe SEIZURES Uncoded 05/19/22 22:25 [facility] Past Medical History Medical History Anastomotic ulcer Anxiety Asthma Borderline diabetes Depression Diabetes type 2, controlled DVT (deep venous thrombosis) Dyslipidemia GERD (gastroesophageal reflux disease) High cholesterol History of restless legs syndrome Non-toxic multinodular goiter Surgical History History of excision of epidermal inclusion cyst (03/23/22) History of excision of mass (10/26/21) History of hysterectomy History of tooth extraction Hx of esophagogastroduodenoscopy Hx of excision of epidermal inclusion cyst (12/25/21) Hx of hand surgery S/P gastric bypass S/P trigger finger release Family History Family History Mother Diabetes mellitus CHF (congestive heart failure) Kidney failure Cervical cancer Brother No problems noted. Brother No problems noted. 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 Was evaluated in our ED on 05/19 for similar symptoms had negative x-ray. Also reports cyst to G U area, reports similar symptoms in the past requiring surgical removal by Dr. Zambrano. Also reports left lower extremity calf pain and swelling Venous duplex ultrasound ordered in triage as well as UA Medical Decision Making Lab Data Labs: Lab Results 05/21/22 Range/Units 22:09 Urine Color Yellow Urine Appearance Clear Urine pH 5.5 (5.0-9.0) Ur Specific [place] >= 1.030 H (1.005-1.025) Urine Protein Negative (Neg-Trace) mg/dL Urine Glucose (UA) Negative (Negative) mg/dL Urine Ketones Trace (Negative) mg/dL Urine Blood Negative (Negative) Urine Nitrite Negative (Negative) Ur Leukocyte Esterase Negative (Negative) Discharge Plan Discharge Clinical Impression: Epidermoid cyst of labia majora, Contusion Patient Disposition: Home, Self-Care Instructions: Bartholin Cyst (ED), Incision and Drainage (ED) Additional Instructions: Please follow-up with your primary care physician tomorrow. the packing needs to be removed tomorrow. Please follow-up with her primary care physician. Please return tomorrow or in 48 hours for a wound check please. If you have any worsening or new symptoms, please return to the emergency room or call 911 Prescriptions: New doxycycline hyclate 100 mg tablet 100 mg PO BID Qty: 13 0RF cephalexin 500 mg capsule 500 mg PO BID Qty: 13 0RF oxycodone 5 mg tablet 5 mg PO BID PRN (Reason: pain) Qty: 6 0RF Rx Instructions: Partial Fill upon patient request. No Action cholecalciferol (vitamin D3) 50 mcg (2,000 unit) capsule 50 mcg PO DAILY Qty: 30 11RF pantoprazole 40 mg tablet,delayed release (DR/EC) 40 mg PO DAILY Qty: 60 6RF (DME) FreeStyle Lite Strips Strip See Rx Instructions .ROUTE .COMPLEX Qty: 150 6RF Dose Instruction: USE TO TEST BLOOD SUGAR TWICE DAILY Rx Instructions: USE TO TEST BLOOD SUGAR TWICE DAILY cyclobenzaprine 10 mg tablet 10 mg PO Q8H Qty: 20 0RF hydroxyzine HCl 25 mg tablet 50 mg PO BEDTIME sertraline 100 mg tablet 1 tab PO BEDTIME pramipexole 0.25 mg tablet 1 tab DAILY tizanidine 4 mg tablet 1 tab PO BEDTIME acetaminophen [Tylenol Extra Strength] 500 mg tablet 1,000 mg PO QID PRN (Reason: fever or pain) Qty: 14 0RF hydrocodone-acetaminophen 5-325 mg tablet 1 - 2 tab PO Q6H PRN (Reason: pain) Qty: 20 0RF Rx Instructions: Partial Fill upon patient request. cyclobenzaprine 5 mg tablet 5 mg PO TID PRN (Reason: muscle spasm) Qty: 14 0RF oxycodone 5 mg tablet 5 mg PO Q8H PRN (Reason: pain) Qty: 10 0RF Rx Instructions: Partial Fill upon patient request. albuterol sulfate 90 mcg/actuation HFA aerosol inhaler 2 puff inhalation Q4-6H PRN (Reason: shortness of breath or wheezing) Qty: 6.7 0RF fluticasone propionate [Flonase Allergy Relief] 50 mcg/actuation spray,suspension 2 spray intranasal DAILY Qty: 16 0RF Rx Instructions: administer into each nostril lidocaine 5 % adhesive patch,medicated 1 patch topical DAILY PRN (Reason: pain) Qty: 15 0RF Rx Instructions: leave on most painful area for up to 12 hrs oxycodone 5 mg tablet 5 - 10 mg PO Q6H PRN (Reason: pain) Qty: 20 0RF Rx Instructions: Partial Fill upon patient request. cyclobenzaprine 5 mg tablet 5 mg PO BEDTIME PRN (Reason: muscle spasm) Qty: 4 0RF metformin 500 mg tablet extended release 24 hr 500 mg PO DAILY 30 Days Qty: 30 5RF acarbose 25 mg tablet 25 mg PO TID 30 Days Qty: 90 4RF hydrochlorothiazide 12.5 mg capsule 12.5 mg PO DAILY ropinirole 1 mg tablet 1 mg PO BEDTIME Rx Instructions: administer 1-3 hours before bedtime chlorhexidine gluconate [Hibiclens] 4 % liquid 1 appl topical .COMPLEX 20 Days Qty: 237 4RF Rx Instructions: 1 appl topical 3-4 times weekly; lather all skin in shower and leave on for one minute before washing off. tramadol 50 mg tablet 50 mg PO BEDTIME 5 Days Qty: 5 0RF oxycodone 5 mg tablet 5 mg PO BEDTIME PRN (Reason: pain) 5 Days Qty: 5 0RF Rx Instructions: Partial Fill upon patient request. (DME) blood-glucose meter [FreeStyle Lite Meter] Kit See Rx Instructions .Route Qty: 1 0RF Rx Instructions: As directed test blood sugar two times a day Stand Alone Forms: Work/School Release
[2022-05-21 22:06] VITALS: BP 131/69; PULSE 76; RESP 18; TEMP 37.2; O2SAT 96
[2022-05-21 22:14] LABS: Appearance Urine Clear; Color Urine Yellow; Glucose Urine UA Negative (Negative); Leukocyte Esterase Urine Negative (Negative); Nitrite Urine Negative (Negative); PH 5.5 (5.0-9.0); Specific Gravity - Urine >= 1.030 (1.005-1.025); Urine Blood Negative (Negative); Urine Ketones Trace mg/dL (Negative); Urine Protein Negative (Neg-Trace)
[2022-05-22 00:21] VITALS: BP 131/69; PULSE 79; RESP 18; TEMP 36.7; O2SAT 96
[2022-05-22] MEDS: oxyCODONE HCl Immed Release 5 MG TABLET PO (00:41)
[2022-05-22] MEDS: cephALEXin 500 MG CAPSULE PO (00:41)
[2022-05-22] MEDS: Doxycycline Monohydrate 100 MG CAPSULE PO (00:41)
== END 2022-05-22 01:21 | disposition home or self-care (01) ==
PROVIDERS: Physician Assistant; Emergency Provider Emergency Medicine; PCP Student in an Organized Health Care Education/Training Program
DX: R60.0 Localized edema (principal); N89.8 Other specified noninflammatory disorders of vagina; F17.210 Nicotine dependence, cigarettes, uncomplicated; Z71.6 Tobacco abuse counseling; Z79.899 Other long term (current) drug therapy
CPT/HCPCS: 81003; 93971; 99284

== ENCOUNTER 2022-06-01 09:56 | Outpatient (REF) | payer MEDICAID, SELFPAY ==
[2022-06-01 11:29] LABS: C Reactive Protein 0.06 mg/dL (< or = 0.50); Magnesium 2.1 mg/dL (1.6-2.6); Phosphorus 3.3 mg/dL (2.7-4.5)
[2022-06-01 13:11] LABS: Estimated Average Glucose 134 mg/dL; Hemoglobin A1c % 6.3 %
[2022-06-01 15:12] LABS: Insulin 4 uU/mL (2-29)
[2022-06-03 12:08] LABS: Calcium (PTHI) 9.2 mg/dL (8.6-10.4); PTHI 46 pg/mL (16-77)
[2022-06-05 16:03] LABS: Vitamin B1 7 nmol/L (8-30)
[2022-06-05 17:03] LABS: Vitamin A 43 mcg/dL (38-98); Zinc 68 mcg/dL (60-130)
== END 2022-06-01 09:57 | disposition home or self-care (01) ==
LOC: HO.LAB 09:56
PROVIDERS: Visit Provider Physician Assistant Surgical
DX: E66.3 Overweight (principal); R10.9 Unspecified abdominal pain; R11.10 Vomiting, unspecified; F17.210 Nicotine dependence, cigarettes, uncomplicated; Z71.3 Dietary counseling and surveillance; Z79.899 Other long term (current) drug therapy; Z98.84 Bariatric surgery status
CPT/HCPCS: 36415; 83036; 83525; 83735; 83970; 84100; 84425; 84590; 84630; 86140; 99212

== ENCOUNTER → 2022-06-03 09:35 | Outpatient (BNVA) | payer MEDICAID, SELFPAY | PROVIDERS: Visit Provider Orthopaedic Surgery | DX: E04.2 Nontoxic multinodular goiter (principal); E11.9 Type 2 diabetes mellitus without complications; M67.432 Ganglion, left wrist; G56.22 Lesion of ulnar nerve, left upper limb; G56.02 Carpal tunnel syndrome, left upper limb; Z98.84 Bariatric surgery status | CPT/HCPCS: 20612; 82947; 99212 ==

== ENCOUNTER 2022-06-03 14:57 | Emergency (ER) | payer MEDICAID, SELFPAY ==
--- NOTE | ~2022-06-03 | XR_ITS ---
EXAMINATION: XR CHEST CLINICAL INFORMATION: Chest pain COMPARISON: 02/25/2022 TECHNIQUE: Frontal view of the chest was obtained. FINDINGS: No significant abnormality is noted involving the heart, lungs, mediastinum, bony thorax or soft tissues. XR/XR chest 1V IMPRESSION: Unremarkable examination.
--- NOTE | 2022-06-03 15:02 | ECG_ITS ---
Test Reason : CHEST PAIN Blood Pressure : / mmHG Vent. Rate : 068 BPM Atrial Rate : 068 BPM P-R Int : 168 ms QRS Dur : 070 ms QT Int : 390 ms P-R-T Axes : 041 023 027 degrees QTc Int : 414 ms Normal sinus rhythm Normal ECG When compared with ECG of 25-FEB-2022 21:14, No significant change was found Referred By: Gali Dc Electronically Signed By:Franklin Cortez
--- NOTE | 2022-06-03 15:13 | ED_ITS ---
HPI - Chest Pain General Chief Complaint: Chest Pain <SIMONE Sadler Last Filed: 06/03/22 17:48> Stated Complaint: CHEST PAIN INTO JAW FROM MD OFFICE PER EMS <SIMONE Sadler Last Filed: 06/03/22 17:48> Time Seen by Provider: 06/03/22 15:01 <SIMONE Sadler - Last Filed: 06/03/22 17:48> Source: patient and EMS <SIMONE Sadler Last Filed: 06/03/22 17:48> Mode of arrival: EMS <SIMONE Sadler Last Filed: 06/03/22 17:48> Limitations: no limitations <SIMONE Sadler Last Filed: 06/03/22 17:48> History of Present Illness HPI narrative: 61 yo female wtih history of DM, HLD, s/p gastric bypass with significant weight loss who is presenting to the ER from doctor's office for evaluation of 02/10, chest pain and tightness that radiated into her jaw & neck. The pain came on when she was talking with her diabetes doctor. It was sudden tightness that radiated into the jaw, neck and ear. Her BP trended up per her report. She was given SL nitro and aspirin with almost complete resolution of the pain. She feels a small tightness ongoing in the center of her chest. No SOB, diaphoresis or nausea. She states she gets random chest pains at home that are brief but never radiate up into the neck and jaw. <SIMONE Sadler Last Filed: 06/03/22 17:48> MD complaint: chest pain <SIMONE Sadler Last Filed: 06/03/22 17:48> Pertinent past history: asthma <SIMONE Sadler Last Filed: 06/03/22 17:48> Timing of current episode: episodic and now resolved <SIMONE Sadler Last Filed: 06/03/22 17:48> Prior episodes: Yes <SIMONE Sadler Last Filed: 06/03/22 17:48> Onset: during rest <SIMONE Sadler Last Filed: 06/03/22 17:48> Pain location: substernal and left chest <SIMONE Sadler - Last Filed: 06/03/22 17:48> Pain radiation: neck and jaw/teeth <SIMONE Sadler - Last Filed: 06/03/22 17:48> Severity: severe <SIMONE Sadler - Last Filed: 06/03/22 17:48> Pain scale (0-10): 8 <SIMONE Sadler - Last Filed: 06/03/22 17:48> Quality: tightness and sharp <SIMONE Sadler - Last Filed: 06/03/22 17:48> Relieving factors: nitroglycerin <SIMONE Sadler - Last Filed: 06/03/22 17:48> Exacerbating factors: nothing <SIMONE Sadler - Last Filed: 06/03/22 17:48> Associated symptoms: dyspnea <SIMONE Sadler - Last Filed: 06/03/22 17:48> Treatment prior to arrival: aspirin and nitroglycerin <SIMONE Sadler - Last Filed: 06/03/22 17:48> Risk Factors Coronary artery disease risk factors: diabetes and hyperlipidemia <SIMONE Sadler Last Filed: 06/03/22 17:48> Thoracic aortic dissection risk factors: none <SIMONE Sadler - Last Filed: 06/03/22 17:48> Related Data Home Medications: Home Medications Medication Instructions Recorded Confirmed hydrochlorothiazide 12.5 mg capsule 12.5 mg PO DAILY 05/09/20 06/03/22 hydroxyzine HCl 25 mg tablet 50 mg PO BEDTIME 06/04/20 06/03/22 pramipexole 0.25 mg tablet 1 tab DAILY 10/20/21 06/03/22 sertraline 100 mg tablet 1 tab PO BEDTIME 10/20/21 06/03/22 tizanidine 4 mg tablet 1 tab PO BEDTIME 10/20/21 06/03/22 ferrous sulfate 325 mg (65 mg 325 mg PO DAILY 06/01/22 06/03/22 iron) tablet,delayed release cyanocobalamin (vitamin B-12) 1,000 mcg PO QAM 06/03/22 06/03/22 1,000 mcg tablet cyclobenzaprine 5 mg tablet 5 mg PO BEDTIME PRN muscle spasm 06/03/22 06/03/22 metformin 500 mg tablet,extended 500 mg PO BID 06/03/22 06/03/22 release 24 hr oxycodone 5 mg tablet 1 tab PO BID PRN pain 06/03/22 06/03/22 sucralfate 100 mg/mL oral 10 ml PO DAILY 06/03/22 06/03/22 suspension Previous Rx's Medication Instructions Recorded cholecalciferol (vitamin D3) 50 50 mcg PO DAILY #30 caps 12/15/20 mcg (2,000 unit) capsule acarbose 25 mg tablet 25 mg PO TID 30 days #90 tabs 12/31/20 pantoprazole 40 mg tablet,delayed 40 mg PO DAILY #60 tabs 04/06/21 release albuterol sulfate 90 mcg/actuation 2 puff inhalation Q4-6H PRN 06/21/21 aerosol inhaler shortness of breath or wheezing #6.7 grams fluticasone propionate 50 2 spray intranasal DAILY #16 grams 06/21/21 mcg/actuation nasal spray,suspension (Flonase Allergy Relief) blood-glucose meter (FreeStyle #1 ea 08/21/21 Lite Meter kit) lidocaine 5 % topical patch 1 patch topical DAILY PRN pain #15 02/26/22 ea blood sugar diagnostic (FreeStyle #150 strips 03/30/22 Lite Strips) <SIMONE Sadler - Last Filed: 06/03/22 17:48> Allergies/Adverse Reactions: Allergies Allergy/AdvReac Type Severity Reaction Status Date / Time Penicillins Allergy Intermediate HIVES Verified 06/03/22 14:08 sulfamethoxazole Allergy Intermediate BLISTERS- Verified 06/03/22 14:08 [From BACTRIM] DELGADO - NERVE ENDINGS IN HAND/ERYTHEMA MULTIFORM trimethoprim [From BACTRIM] Allergy Intermediate BLISTERS- Verified 06/03/22 14:08 DELGADO - NERVE ENDINGS IN HAND/ERYTHEMA MULTIFORM latex [Latex] Allergy Mild RASH Verified 06/03/22 14:08 theophylline AdvReac Intermediate TACHYCARDIA Verified 06/03/22 14:08 TEGADERM Allergy Intermediate SKIN TEARS Uncoded 06/03/22 14:08 From COMPAZINE AdvReac Severe SEIZURES Uncoded 06/03/22 14:08 <SIMONE Sadler - Last Filed: 06/03/22 17:48> Review of Systems Review of Systems: Constitutional: No Fever, No Chills ENT/Mouth: No sore throat, No Rhinorrhea, No Swallowing Difficulty Eyes: No Eye Pain, No Swelling, No Redness Cardiovascular: + Chest Pain, No SOB, No Orthopnea, No Edema Respiratory: No Cough, No Sputum, No Wheezing, No dyspnea Gastrointestinal: No Nausea, No Vomiting, No Diarrhea, No abdominal Pain Genitourinary: No Dysuria, No Urinary Frequency, No Hematuria Musculoskeletal: No joint pain, No Myalgias Skin: No Skin Lesions, No rash Neuro: No Weakness, No Numbness, No Dizziness, + Headache Psych: + Anxiety/Panic, No Depression Heme/Lymph: No Bruising, No Lymphadenopathy Endocrine: No Polyuria, No Polydipsia <SIMONE Sadler - Last Filed: 06/03/22 17:48> [facility] Past Medical History Medical History: Medical History (Updated 06/03/22 @ 16:59 by SIMONE Sadler) Anastomotic ulcer Anxiety Asthma Borderline diabetes Depression Diabetes type 2, controlled DVT (deep venous thrombosis) Dyslipidemia GERD (gastroesophageal reflux disease) High cholesterol History of restless legs syndrome Non-toxic multinodular goiter <SIMONE Sadler - Last Filed: 06/03/22 17:48> Surgical History: Surgical History (Updated 06/03/22 @ 14:11 by ADITYA Lovett) History of excision of epidermal inclusion cyst (03/23/22) History of excision of mass (10/26/21) History of hysterectomy History of surgery History of surgery on left wrist History of tooth extraction Hx of elbow surgery Hx of esophagogastroduodenoscopy Hx of excision of epidermal inclusion cyst (12/25/21) Hx of hand surgery S/P gastric bypass S/P trigger finger release <SIMONE Sadler - Last Filed: 06/03/22 17:48> Family History Family History: Family History Mother Diabetes mellitus CHF (congestive heart failure) Kidney failure Cervical cancer Brother No problems noted. Brother No problems noted. <SIMONE Sadler Last Filed: 06/03/22 17:48> Social History Social History: Social History (Updated 06/03/22 @ 14:11 by Bridgette Ren [facility]) Household Members: Spouse Are you a primary home health care case manager to a significant other at home: No Do you presently have visiting nurse or other home services: No Alcohol intake: never Patient Tobacco Use Status: Current someday Tobacco user Tobacco use type: Cigarette Cigarette Packs Per Day: 0 Cigarettes Per Day: 1 Years Smoked: 30 Smoked in Last 30 Days: Yes Use of substances other than those prescribed or required for medical reasons: No Advance Directives: No Advance Directives Information Provided: No Patient : No Current occupational status: employed 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 <SIMONE Sadler - Last Filed: 06/03/22 17:48> Physical Exam Vital Signs: Vital Signs: Last Vital Signs Temp 97.9 F 06/03/22 19:53 Pulse 92 06/03/22 19:53 Resp 20 06/03/22 19:53 BP 127/77 06/03/22 19:53 Pulse Ox 97 06/03/22 19:53 O2 Del Method 06/03/22 19:53 BMI result Body Mass Index 27.3 <SIMONE Sadler - Last Filed: 06/03/22 17:48> Vital Signs: Last Vital Signs Temp 97.9 F 06/03/22 19:53 Pulse 92 06/03/22 19:53 Resp 20 06/03/22 19:53 BP 127/77 06/03/22 19:53 Pulse Ox 97 06/03/22 19:53 O2 Del Method 06/03/22 19:53 BMI result Body Mass Index 27.3 <Gavin Byrne MD - Last Filed: 06/03/22 20:35> Appearance: Alert. Oriented X3. No acute distress. Eyes: Pupils equal, round and reactive to light. ENT: Pharynx normal. Neck: Normal inspection. Neck supple. CVS: Normal heart rate and rhythm. Pulses normal. Respiratory: No respiratory distress. Breath sounds normal. Abdomen: Soft and nontender. +BS x4 Skin: Skin warm and dry. Normal skin color. Normal skin turgor. No rashes. Extremities: No lower extremity edema. No calf tenderness. Neuro: Oriented X 3. No motor deficit. No sensory deficit. <SIMONE Sadler - Last Filed: 06/03/22 17:48> Course Course Course Narrative: 61 y/o female with hx DM, HLD who presents with transient chest pain, 8/10 sharp and tight radiating to neck and jaw. now almost completely resolved after nitro and ASA. Concern for ACS - EKG without STEMI. Will check trop x2, monitor on tele and check basic labs. <SIMONE Sadler - Last Filed: 06/03/22 17:48> Reevaluation(s) Reevaluation #1: 1st trop is negative. HEART score is 4. Spoke with Cardiology via tiger text was in agreement for admission. will plan for admission for further monitoring. Patient updated on plan of care. <SIMONE Sadler - Last Filed: 06/03/22 17:48> Time: 20:34 <Gavin Byrne MD - Last Filed: 06/03/22 20:35> Reevaluation #2: The hospitalist had evaluated the patient for admission and felt that the patient's pain sounded atypical. He recommended repeat troponin. EKG is normal. Patient remains without chest pain. Troponin x3 have been negative. The patient does not want to stay in the hospital for further workup and is being discharged home. <Gavin Byrne MD - Last Filed: 06/03/22 20:35> Consultations Consultation #1: [facility] - Dr. Cortez <SIMONE Sadler - Last Filed: 06/03/22 17:48> MDM - Chest Pain Medical Records Data Attestation: I reviewed the patient's medical records. <SIMONE Sadler - Last Filed: 06/03/22 17:48> Lab Data Attestation: I reviewed the patient's lab results. <SIMONE Sadler - Last Filed: 06/03/22 17:48> Result diagrams: : 06/03/22 15:38 06/03/22 15:38 <SIMONE Sadler - Last Filed: 06/03/22 17:48> Labs: Lab Results 06/03/22 06/03/22 06/03/22 Range/Units 15:38 15:38 15:38 WBC 8.5 (4.8-10.8) X10*3/uL RBC 4.94 (4.20-5.50) X10*6/uL Hgb 14.3 (12.0-16.0) g/dl Hct 42.3 (37.0-47.0) % MCV 85.6 (80.0-98.0) fL MCH 28.9 (27.0-33.0) pg MCHC 33.8 (31.0-35.0) g/dl RDW 12.3 (11.0-16.0) % Plt Count 215 (160-400) X10*3/uL MPV 9.8 (9.4-12.3) fL Immature Gran % (Auto) 0.2 (0.0-0.4) % Neut % (Auto) 61.3 (45-73) % Lymph % (Auto) 29.8 (20-40) % [place] % (Auto) 5.8 (2-11) % Eos % (Auto) 2.3 (0-4) % Baso % (Auto) 0.6 (0-2) % Lymph # (Auto) 2.5 (1.2-4.9) X10*3/uL [place] # (Auto) 0.5 (0.1-1.2) X10*3/uL Eos # (Auto) 0.2 (0.0-0.4) X10*3/uL Baso # (Auto) 0.1 (0.0-0.2) X10*3/uL Abs Immat Gran (auto) 0.02 (0.00-0.03) X10*3/uL Absolute Neuts (auto) 5.2 (2.0-8.3) x10*3/uL Absolute Nucleated RBC 0.000 (0.0-0.012) X10*3/uL Nucleated RBC % (auto) 0.0 (0.0-0.2) /100WBC PT 10.5 (10.0-13.1) SEC INR 0.9 (0.9-1.1) APTT 30.1 (26.0-36.4) SEC Sodium 137 (135-145) mmol/L Potassium 3.6 (3.3-5.1) mmol/L Chloride 100 (96-108) mmol/L Carbon Dioxide 33 H (22-29) mmol/L Anion Gap 8 L (12-20) BUN 15 (9-16) mg/dL Creatinine 0.82 (0.5-1.4) mg/dL Estim Creat Clear Calc 69.2 Estimated GFR > 60 POC Glucose (60-115) mg/dL Random Glucose 93 (60-115) mg/dL Calcium 9.6 (8.4-10.2) mg/dL Magnesium 2.2 (1.6-2.6) mg/dL Total Bilirubin 0.4 (0.0-1.0) mg/dL Direct Bilirubin < 0.2 (0.0-0.5) mg/dL AST 17 (5-31) U/L ALT 19 (0-31) U/L Alkaline Phosphatase 95 (39-117) U/L Troponin I High Sens (<3.5-17.0) ng/L Total Protein 7.3 (6.5-8.0) g/dL Albumin 4.5 (3.5-5.0) g/dL Urine Color Urine Appearance Urine pH (5.0-9.0) Ur Specific [place] (1.005-1.025) Urine Protein (Neg-Trace) mg/dL Urine Glucose (UA) (Negative) mg/dL Urine Ketones (Negative) mg/dL Urine Blood (Negative) Urine Nitrite (Negative) Ur Leukocyte Esterase (Negative) Urine Opiates Screen (Not Detect) Urine Fentanyl Screen (Not Detect) Ur Barbiturates Screen (Not Detect) Ur Phencyclidine Scrn (Not Detect) Ur Amphetamines Screen (Not Detect) U Benzodiazepines Scrn (Not Detect) Urine Cocaine Screen (Not Detect) U Marijuana (THC) Screen (Not Detect) COVID-19 ([facility]ANSA) (Negative) COVID-19 Clin Com 06/03/22 06/03/22 06/03/22 Range/Units 15:38 15:38 17:06 WBC (4.8-10.8) X10*3/uL RBC (4.20-5.50) X10*6/uL Hgb (12.0-16.0) g/dl Hct (37.0-47.0) % MCV (80.0-98.0) fL MCH (27.0-33.0) pg MCHC (31.0-35.0) g/dl RDW (11.0-16.0) % Plt Count (160-400) X10*3/uL MPV (9.4-12.3) fL Immature Gran % (Auto) (0.0-0.4) % Neut % (Auto) (45-73) % Lymph % (Auto) (20-40) % [place] % (Auto) (2-11) % Eos % (Auto) (0-4) % Baso % (Auto) (0-2) % Lymph # (Auto) (1.2-4.9) X10*3/uL [place] # (Auto) (0.1-1.2) X10*3/uL Eos # (Auto) (0.0-0.4) X10*3/uL Baso # (Auto) (0.0-0.2) X10*3/uL Abs Immat Gran (auto) (0.00-0.03) X10*3/uL Absolute Neuts (auto) (2.0-8.3) x10*3/uL Absolute Nucleated RBC (0.0-0.012) X10*3/uL Nucleated RBC % (auto) (0.0-0.2) /100WBC PT (10.0-13.1) SEC INR (0.9-1.1) APTT (26.0-36.4) SEC Sodium (135-145) mmol/L Potassium (3.3-5.1) mmol/L Chloride (96-108) mmol/L Carbon Dioxide (22-29) mmol/L Anion Gap (12-20) BUN (9-16) mg/dL Creatinine (0.5-1.4) mg/dL Estim Creat Clear Calc Estimated GFR POC Glucose (60-115) mg/dL Random Glucose (60-115) mg/dL Calcium (8.4-10.2) mg/dL Magnesium (1.6-2.6) mg/dL Total Bilirubin (0.0-1.0) mg/dL Direct Bilirubin (0.0-0.5) mg/dL AST (5-31) U/L ALT (0-31) U/L Alkaline Phosphatase (39-117) U/L Troponin I High Sens < 3.5 < 3.5 (<3.5-17.0) ng/L Total Protein (6.5-8.0) g/dL Albumin (3.5-5.0) g/dL Urine Color Urine Appearance Urine pH (5.0-9.0) Ur Specific [place] (1.005-1.025) Urine Protein (Neg-Trace) mg/dL Urine Glucose (UA) (Negative) mg/dL Urine Ketones (Negative) mg/dL Urine Blood (Negative) Urine Nitrite (Negative) Ur Leukocyte Esterase (Negative) Urine Opiates Screen (Not Detect) Urine Fentanyl Screen (Not Detect) Ur Barbiturates Screen (Not Detect) Ur Phencyclidine Scrn (Not Detect) Ur Amphetamines Screen (Not Detect) U Benzodiazepines Scrn (Not Detect) Urine Cocaine Screen (Not Detect) U Marijuana (THC) Screen (Not Detect) COVID-19 ([facility]ANSA) Negative (Negative) COVID-19 Clin Com See Note 06/03/22 06/03/22 06/03/22 Range/Units 18:44 18:44 18:57 WBC (4.8-10.8) X10*3/uL RBC (4.20-5.50) X10*6/uL Hgb (12.0-16.0) g/dl Hct (37.0-47.0) % MCV (80.0-98.0) fL MCH (27.0-33.0) pg MCHC (31.0-35.0) g/dl RDW (11.0-16.0) % Plt Count (160-400) X10*3/uL MPV (9.4-12.3) fL Immature Gran % (Auto) (0.0-0.4) % Neut % (Auto) (45-73) % Lymph % (Auto) (20-40) % [place] % (Auto) (2-11) % Eos % (Auto) (0-4) % Baso % (Auto) (0-2) % Lymph # (Auto) (1.2-4.9) X10*3/uL [place] # (Auto) (0.1-1.2) X10*3/uL Eos # (Auto) (0.0-0.4) X10*3/uL Baso # (Auto) (0.0-0.2) X10*3/uL Abs Immat Gran (auto) (0.00-0.03) X10*3/uL Absolute Neuts (auto) (2.0-8.3) x10*3/uL Absolute Nucleated RBC (0.0-0.012) X10*3/uL Nucleated RBC % (auto) (0.0-0.2) /100WBC PT (10.0-13.1) SEC INR (0.9-1.1) APTT (26.0-36.4) SEC Sodium (135-145) mmol/L Potassium (3.3-5.1) mmol/L Chloride (96-108) mmol/L Carbon Dioxide (22-29) mmol/L Anion Gap (12-20) BUN (9-16) mg/dL Creatinine (0.5-1.4) mg/dL Estim Creat Clear Calc Estimated GFR POC Glucose 118 H (60-115) mg/dL Random Glucose (60-115) mg/dL Calcium (8.4-10.2) mg/dL Magnesium (1.6-2.6) mg/dL Total Bilirubin (0.0-1.0) mg/dL Direct Bilirubin (0.0-0.5) mg/dL AST (5-31) U/L ALT (0-31) U/L Alkaline Phosphatase (39-117) U/L Troponin I High Sens (<3.5-17.0) ng/L Total Protein (6.5-8.0) g/dL Albumin (3.5-5.0) g/dL Urine Color Yellow Urine Appearance Clear Urine pH 6.0 (5.0-9.0) Ur Specific [place] 1.010 (1.005-1.025) Urine Protein Negative (Neg-Trace) mg/dL Urine Glucose (UA) Negative (Negative) mg/dL Urine Ketones Negative (Negative) mg/dL Urine Blood Negative (Negative) Urine Nitrite Negative (Negative) Ur Leukocyte Esterase Negative (Negative) Urine Opiates Screen Not Detected (Not Detect) Urine Fentanyl Screen Not Detected (Not Detect) Ur Barbiturates Screen Not Detected (Not Detect) Ur Phencyclidine Scrn Not Detected (Not Detect) Ur Amphetamines Screen Not Detected (Not Detect) U Benzodiazepines Scrn Not Detected (Not Detect) Urine Cocaine Screen Not Detected (Not Detect) U Marijuana (THC) Screen Not Detected (Not Detect) COVID-19 ([facility]ANSA) (Negative) COVID-19 Clin Com 06/03/22 Range/Units 19:03 WBC (4.8-10.8) X10*3/uL RBC (4.20-5.50) X10*6/uL Hgb (12.0-16.0) g/dl Hct (37.0-47.0) % MCV (80.0-98.0) fL MCH (27.0-33.0) pg MCHC (31.0-35.0) g/dl RDW (11.0-16.0) % Plt Count (160-400) X10*3/uL MPV (9.4-12.3) fL Immature Gran % (Auto) (0.0-0.4) % Neut % (Auto) (45-73) % Lymph % (Auto) (20-40) % [place] % (Auto) (2-11) % Eos % (Auto) (0-4) % Baso % (Auto) (0-2) % Lymph # (Auto) (1.2-4.9) X10*3/uL [place] # (Auto) (0.1-1.2) X10*3/uL Eos # (Auto) (0.0-0.4) X10*3/uL Baso # (Auto) (0.0-0.2) X10*3/uL Abs Immat Gran (auto) (0.00-0.03) X10*3/uL Absolute Neuts (auto) (2.0-8.3) x10*3/uL Absolute Nucleated RBC (0.0-0.012) X10*3/uL Nucleated RBC % (auto) (0.0-0.2) /100WBC PT (10.0-13.1) SEC INR (0.9-1.1) APTT (26.0-36.4) SEC Sodium (135-145) mmol/L Potassium (3.3-5.1) mmol/L Chloride (96-108) mmol/L Carbon Dioxide (22-29) mmol/L Anion Gap (12-20) BUN (9-16) mg/dL Creatinine (0.5-1.4) mg/dL Estim Creat Clear Calc Estimated GFR POC Glucose (60-115) mg/dL Random Glucose (60-115) mg/dL Calcium (8.4-10.2) mg/dL Magnesium (1.6-2.6) mg/dL Total Bilirubin (0.0-1.0) mg/dL Direct Bilirubin (0.0-0.5) mg/dL AST (5-31) U/L ALT (0-31) U/L Alkaline Phosphatase (39-117) U/L Troponin I High Sens < 3.5 (<3.5-17.0) ng/L Total Protein (6.5-8.0) g/dL Albumin (3.5-5.0) g/dL Urine Color Urine Appearance Urine pH (5.0-9.0) Ur Specific [place] (1.005-1.025) Urine Protein (Neg-Trace) mg/dL Urine Glucose (UA) (Negative) mg/dL Urine Ketones (Negative) mg/dL Urine Blood (Negative) Urine Nitrite (Negative) Ur Leukocyte Esterase (Negative) Urine Opiates Screen (Not Detect) Urine Fentanyl Screen (Not Detect) Ur Barbiturates Screen (Not Detect) Ur Phencyclidine Scrn (Not Detect) Ur Amphetamines Screen (Not Detect) U Benzodiazepines Scrn (Not Detect) Urine Cocaine Screen (Not Detect) U Marijuana (THC) Screen (Not Detect) COVID-19 ([facility]ANSA) (Negative) COVID-19 Clin Com <SIMONE Sadler - Last Filed: 06/03/22 17:48> Lab Results 06/03/22 06/03/22 06/03/22 Range/Units 15:38 15:38 15:38 WBC 8.5 (4.8-10.8) X10*3/uL RBC 4.94 (4.20-5.50) X10*6/uL Hgb 14.3 (12.0-16.0) g/dl Hct 42.3 (37.0-47.0) % MCV 85.6 (80.0-98.0) fL MCH 28.9 (27.0-33.0) pg MCHC 33.8 (31.0-35.0) g/dl RDW 12.3 (11.0-16.0) % Plt Count 215 (160-400) X10*3/uL MPV 9.8 (9.4-12.3) fL Immature Gran % (Auto) 0.2 (0.0-0.4) % Neut % (Auto) 61.3 (45-73) % Lymph % (Auto) 29.8 (20-40) % [place] % (Auto) 5.8 (2-11) % Eos % (Auto) 2.3 (0-4) % Baso % (Auto) 0.6 (0-2) % Lymph # (Auto) 2.5 (1.2-4.9) X10*3/uL [place] # (Auto) 0.5 (0.1-1.2) X10*3/uL Eos # (Auto) 0.2 (0.0-0.4) X10*3/uL Baso # (Auto) 0.1 (0.0-0.2) X10*3/uL Abs Immat Gran (auto) 0.02 (0.00-0.03) X10*3/uL Absolute Neuts (auto) 5.2 (2.0-8.3) x10*3/uL Absolute Nucleated RBC 0.000 (0.0-0.012) X10*3/uL Nucleated RBC % (auto) 0.0 (0.0-0.2) /100WBC PT 10.5 (10.0-13.1) SEC INR 0.9 (0.9-1.1) APTT 30.1 (26.0-36.4) SEC Sodium 137 (135-145) mmol/L Potassium 3.6 (3.3-5.1) mmol/L Chloride 100 (96-108) mmol/L Carbon Dioxide 33 H (22-29) mmol/L Anion Gap 8 L (12-20) BUN 15 (9-16) mg/dL Creatinine 0.82 (0.5-1.4) mg/dL Estim Creat Clear Calc 69.2 Estimated GFR > 60 POC Glucose (60-115) mg/dL Random Glucose 93 (60-115) mg/dL Calcium 9.6 (8.4-10.2) mg/dL Magnesium 2.2 (1.6-2.6) mg/dL Total Bilirubin 0.4 (0.0-1.0) mg/dL Direct Bilirubin < 0.2 (0.0-0.5) mg/dL AST 17 (5-31) U/L ALT 19 (0-31) U/L Alkaline Phosphatase 95 (39-117) U/L Troponin I High Sens (<3.5-17.0) ng/L Total Protein 7.3 (6.5-8.0) g/dL Albumin 4.5 (3.5-5.0) g/dL Urine Color Urine Appearance Urine pH (5.0-9.0) Ur Specific [place] (1.005-1.025) Urine Protein (Neg-Trace) mg/dL Urine Glucose (UA) (Negative) mg/dL Urine Ketones (Negative) mg/dL Urine Blood (Negative) Urine Nitrite (Negative) Ur Leukocyte Esterase (Negative) Urine Opiates Screen (Not Detect) Urine Fentanyl Screen (Not Detect) Ur Barbiturates Screen (Not Detect) Ur Phencyclidine Scrn (Not Detect) Ur Amphetamines Screen (Not Detect) U Benzodiazepines Scrn (Not Detect) Urine Cocaine Screen (Not Detect) U Marijuana (THC) Screen (Not Detect) COVID-19 ([facility]ANSA) (Negative) COVID-19 Clin Com 06/03/22 06/03/22 06/03/22 Range/Units 15:38 15:38 17:06 WBC (4.8-10.8) X10*3/uL RBC (4.20-5.50) X10*6/uL Hgb (12.0-16.0) g/dl Hct (37.0-47.0) % MCV (80.0-98.0) fL MCH (27.0-33.0) pg MCHC (31.0-35.0) g/dl RDW (11.0-16.0) % Plt Count (160-400) X10*3/uL MPV (9.4-12.3) fL Immature Gran % (Auto) (0.0-0.4) % Neut % (Auto) (45-73) % Lymph % (Auto) (20-40) % [place] % (Auto) (2-11) % Eos % (Auto) (0-4) % Baso % (Auto) (0-2) % Lymph # (Auto) (1.2-4.9) X10*3/uL [place] # (Auto) (0.1-1.2) X10*3/uL Eos # (Auto) (0.0-0.4) X10*3/uL Baso # (Auto) (0.0-0.2) X10*3/uL Abs Immat Gran (auto) (0.00-0.03) X10*3/uL Absolute Neuts (auto) (2.0-8.3) x10*3/uL Absolute Nucleated RBC (0.0-0.012) X10*3/uL Nucleated RBC % (auto) (0.0-0.2) /100WBC PT (10.0-13.1) SEC INR (0.9-1.1) APTT (26.0-36.4) SEC Sodium (135-145) mmol/L Potassium (3.3-5.1) mmol/L Chloride (96-108) mmol/L Carbon Dioxide (22-29) mmol/L Anion Gap (12-20) BUN (9-16) mg/dL Creatinine (0.5-1.4) mg/dL Estim Creat Clear Calc Estimated GFR POC Glucose (60-115) mg/dL Random Glucose (60-115) mg/dL Calcium (8.4-10.2) mg/dL Magnesium (1.6-2.6) mg/dL Total Bilirubin (0.0-1.0) mg/dL Direct Bilirubin (0.0-0.5) mg/dL AST (5-31) U/L ALT (0-31) U/L Alkaline Phosphatase (39-117) U/L Troponin I High Sens < 3.5 < 3.5 (<3.5-17.0) ng/L Total Protein (6.5-8.0) g/dL Albumin (3.5-5.0) g/dL Urine Color Urine Appearance Urine pH (5.0-9.0) Ur Specific [place] (1.005-1.025) Urine Protein (Neg-Trace) mg/dL Urine Glucose (UA) (Negative) mg/dL Urine Ketones (Negative) mg/dL Urine Blood (Negative) Urine Nitrite (Negative) Ur Leukocyte Esterase (Negative) Urine Opiates Screen (Not Detect) Urine Fentanyl Screen (Not Detect) Ur Barbiturates Screen (Not Detect) Ur Phencyclidine Scrn (Not Detect) Ur Amphetamines Screen (Not Detect) U Benzodiazepines Scrn (Not Detect) Urine Cocaine Screen (Not Detect) U Marijuana (THC) Screen (Not Detect) COVID-19 ([facility]) Negative (Negative) COVID-19 Clin Com See Note 06/03/22 06/03/22 06/03/22 Range/Units 18:44 18:44 18:57 WBC (4.8-10.8) X10*3/uL RBC (4.20-5.50) X10*6/uL Hgb (12.0-16.0) g/dl Hct (37.0-47.0) % MCV (80.0-98.0) fL MCH (27.0-33.0) pg MCHC (31.0-35.0) g/dl RDW (11.0-16.0) % Plt Count (160-400) X10*3/uL MPV (9.4-12.3) fL Immature Gran % (Auto) (0.0-0.4) % Neut % (Auto) (45-73) % Lymph % (Auto) (20-40) % [place] % (Auto) (2-11) % Eos % (Auto) (0-4) % Baso % (Auto) (0-2) % Lymph # (Auto) (1.2-4.9) X10*3/uL [place] # (Auto) (0.1-1.2) X10*3/uL Eos # (Auto) (0.0-0.4) X10*3/uL Baso # (Auto) (0.0-0.2) X10*3/uL Abs Immat Gran (auto) (0.00-0.03) X10*3/uL Absolute Neuts (auto) (2.0-8.3) x10*3/uL Absolute Nucleated RBC (0.0-0.012) X10*3/uL Nucleated RBC % (auto) (0.0-0.2) /100WBC PT (10.0-13.1) SEC INR (0.9-1.1) APTT (26.0-36.4) SEC Sodium (135-145) mmol/L Potassium (3.3-5.1) mmol/L Chloride (96-108) mmol/L Carbon Dioxide (22-29) mmol/L Anion Gap (12-20) BUN (9-16) mg/dL Creatinine (0.5-1.4) mg/dL Estim Creat Clear Calc Estimated GFR POC Glucose 118 H (60-115) mg/dL Random Glucose (60-115) mg/dL Calcium (8.4-10.2) mg/dL Magnesium (1.6-2.6) mg/dL Total Bilirubin (0.0-1.0) mg/dL Direct Bilirubin (0.0-0.5) mg/dL AST (5-31) U/L ALT (0-31) U/L Alkaline Phosphatase (39-117) U/L Troponin I High Sens (<3.5-17.0) ng/L Total Protein (6.5-8.0) g/dL Albumin (3.5-5.0) g/dL Urine Color Yellow Urine Appearance Clear Urine pH 6.0 (5.0-9.0) Ur Specific [place] 1.010 (1.005-1.025) Urine Protein Negative (Neg-Trace) mg/dL Urine Glucose (UA) Negative (Negative) mg/dL Urine Ketones Negative (Negative) mg/dL Urine Blood Negative (Negative) Urine Nitrite Negative (Negative) Ur Leukocyte Esterase Negative (Negative) Urine Opiates Screen Not Detected (Not Detect) Urine Fentanyl Screen Not Detected (Not Detect) Ur Barbiturates Screen Not Detected (Not Detect) Ur Phencyclidine Scrn Not Detected (Not Detect) Ur Amphetamines Screen Not Detected (Not Detect) U Benzodiazepines Scrn Not Detected (Not Detect) Urine Cocaine Screen Not Detected (Not Detect) U Marijuana (THC) Screen Not Detected (Not Detect) COVID-19 ([facility]) (Negative) COVID-19 Clin Com 06/03/22 Range/Units 19:03 WBC (4.8-10.8) X10*3/uL RBC (4.20-5.50) X10*6/uL Hgb (12.0-16.0) g/dl Hct (37.0-47.0) % MCV (80.0-98.0) fL MCH (27.0-33.0) pg MCHC (31.0-35.0) g/dl RDW (11.0-16.0) % Plt Count (160-400) X10*3/uL MPV (9.4-12.3) fL Immature Gran % (Auto) (0.0-0.4) % Neut % (Auto) (45-73) % Lymph % (Auto) (20-40) % [place] % (Auto) (2-11) % Eos % (Auto) (0-4) % Baso % (Auto) (0-2) % Lymph # (Auto) (1.2-4.9) X10*3/uL [place] # (Auto) (0.1-1.2) X10*3/uL Eos # (Auto) (0.0-0.4) X10*3/uL Baso # (Auto) (0.0-0.2) X10*3/uL Abs Immat Gran (auto) (0.00-0.03) X10*3/uL Absolute Neuts (auto) (2.0-8.3) x10*3/uL Absolute Nucleated RBC (0.0-0.012) X10*3/uL Nucleated RBC % (auto) (0.0-0.2) /100WBC PT (10.0-13.1) SEC INR (0.9-1.1) APTT (26.0-36.4) SEC Sodium (135-145) mmol/L Potassium (3.3-5.1) mmol/L Chloride (96-108) mmol/L Carbon Dioxide (22-29) mmol/L Anion Gap (12-20) BUN (9-16) mg/dL Creatinine (0.5-1.4) mg/dL Estim Creat Clear Calc Estimated GFR POC Glucose (60-115) mg/dL Random Glucose (60-115) mg/dL Calcium (8.4-10.2) mg/dL Magnesium (1.6-2.6) mg/dL Total Bilirubin (0.0-1.0) mg/dL Direct Bilirubin (0.0-0.5) mg/dL AST (5-31) U/L ALT (0-31) U/L Alkaline Phosphatase (39-117) U/L Troponin I High Sens < 3.5 (<3.5-17.0) ng/L Total Protein (6.5-8.0) g/dL Albumin (3.5-5.0) g/dL Urine Color Urine Appearance Urine pH (5.0-9.0) Ur Specific [place] (1.005-1.025) Urine Protein (Neg-Trace) mg/dL Urine Glucose (UA) (Negative) mg/dL Urine Ketones (Negative) mg/dL Urine Blood (Negative) Urine Nitrite (Negative) Ur Leukocyte Esterase (Negative) Urine Opiates Screen (Not Detect) Urine Fentanyl Screen (Not Detect) Ur Barbiturates Screen (Not Detect) Ur Phencyclidine Scrn (Not Detect) Ur Amphetamines Screen (Not Detect) U Benzodiazepines Scrn (Not Detect) Urine Cocaine Screen (Not Detect) U Marijuana (THC) Screen (Not Detect) COVID-19 ([facility]) (Negative) COVID-19 Clin Com <Gavin Byrne MD - Last Filed: 06/03/22 20:35> ECG Data ECG #1: Attestation: I personally reviewed and interpreted this ECG as follows: <SIMONE Sadler - Last Filed: 06/03/22 17:48> ECG interpretation date: 06/03/22 <SIMONE Sadler - Last Filed: 06/03/22 17:48> ECG interpretation time: 16:58 <SIMONE Sadler - Last Filed: 06/03/22 17:48> Prior ECG tracings: available for review <SIMONE Sadler - Last Filed: 06/03/22 17:48> Interpretation: Normal sinus rhythm, ventricular rate 68 beats per minute, normal DC interval, normal QRS, normal QTC, no ST segment elevations or depressions. No change from prior in February. <SIMONE Sadler - Last Filed: 06/03/22 17:48> Scores Heart Score History: -2- highly suspicious <SIMONE Sadler - Last Filed: 06/03/22 17:48> ECG: -0- normal <SIMONE Sadler - Last Filed: 06/03/22 17:48> Age: -1- >45 - <65 <SIMONE Sadler - Last Filed: 06/03/22 17:48> Risk factory: -1- 1 or 2 risk factors <SIMONE Sadler - Last Filed: 06/03/22 17:48> Troponin: -0- < or = normal limit <SIMONE Sadler - Last Filed: 06/03/22 17:48> Score: 4 <SIMONE Sadler - Last Filed: 06/03/22 17:48> 4 <Gavin Byrne MD - Last Filed: 06/03/22 20:35> Risk: 16.6% <SIMONE Sadler - Last Filed: 06/03/22 17:48> 16.6% <Gavin Byrne MD - Last Filed: 06/03/22 20:35> Critical Care Time Critical Care Time Critical Care Time: Yes <SIMONE Sadler - Last Filed: 06/03/22 17:48> Total Critical Care Time: 35 <SIMONE Sadler - Last Filed: 06/03/22 17:48> Attestation: I have personally provided critical care time exclusive of time spent on separately billable procedures. Time includes review of lab data, radiology results, discussion with consultants, and monitoring for potential decompensation. Intervention performed as documented. <SIMONE Sadler - Last Filed: 06/03/22 17:48> Discharge Plan Discharge Clinical Impression: Chest pain <SIMONE Sadler - Last Filed: 06/03/22 17:48> Patient Disposition: Home, Self-Care <SIMONE Sadler - Last Filed: 06/03/22 17:48> Instructions: Chest Pain (ED) <SIMONE Sadler - Last Filed: 06/03/22 17:48> Additional Instructions: Follow-up with her primary care physician. Return for any new or worsened symptoms. <SIMONE Sadler - Last Filed: 06/03/22 17:48> Prescriptions: No Action cholecalciferol (vitamin D3) 50 mcg (2,000 unit) capsule 50 mcg PO DAILY Qty: 30 11RF pantoprazole 40 mg tablet,delayed release (DR/EC) 40 mg PO DAILY Qty: 60 6RF (DME) FreeStyle Lite Strips Strip See Rx Instructions .ROUTE .COMPLEX Qty: 150 6RF Dose Instruction: USE TO TEST BLOOD SUGAR TWICE DAILY Rx Instructions: USE TO TEST BLOOD SUGAR TWICE DAILY hydroxyzine HCl 25 mg tablet 50 mg PO BEDTIME sertraline 100 mg tablet 1 tab PO BEDTIME pramipexole 0.25 mg tablet 1 tab DAILY tizanidine 4 mg tablet 1 tab PO BEDTIME albuterol sulfate 90 mcg/actuation HFA aerosol inhaler 2 puff inhalation Q4-6H PRN (Reason: shortness of breath or wheezing) Qty: 6.7 0RF fluticasone propionate [Flonase Allergy Relief] 50 mcg/actuation spray,suspension 2 spray intranasal DAILY Qty: 16 0RF Rx Instructions: administer into each nostril lidocaine 5 % adhesive patch,medicated 1 patch topical DAILY PRN (Reason: pain) Qty: 15 0RF Rx Instructions: leave on most painful area for up to 12 hrs oxycodone 5 mg tablet 1 tab PO BID PRN (Reason: pain) metformin 500 mg tablet extended release 24 hr 500 mg PO BID sucralfate 100 mg/mL suspension 10 ml PO DAILY cyclobenzaprine 5 mg tablet 5 mg PO BEDTIME PRN (Reason: muscle spasm) acarbose 25 mg tablet 25 mg PO TID 30 Days Qty: 90 4RF hydrochlorothiazide 12.5 mg capsule 12.5 mg PO DAILY ferrous sulfate 325 mg (65 mg iron) tablet,delayed release (DR/EC) 325 mg PO DAILY (DME) blood-glucose meter [FreeStyle Lite Meter] Kit See Rx Instructions .Route Qty: 1 0RF Rx Instructions: As directed test blood sugar two times a day cyanocobalamin (vitamin B-12) 1,000 mcg tablet 1,000 mcg PO QAM <SIMONE Sadler - Last Filed: 06/03/22 17:48>
[2022-06-03 15:20] VITALS: BP 129/73; BP 140/70; PULSE 70; RESP 16; TEMP 36.8; O2SAT 97; BMI 27.3
[2022-06-03 15:46] LABS: MANUAL DIFF FLAG NO
[2022-06-03 15:47] LABS: Basophils Absolute Auto 0.1 X10*3/uL (0.0-0.2); Basophils Percent Auto 0.6 % (0-2); Eosinophils Absolute Auto 0.2 X10*3/uL (0.0-0.4); Eosinophils Percent Auto 2.3 % (0-4); Hematocrit 42.3 % (37.0-47.0); Hemoglobin 14.3 g/dl (12.0-16.0); Imm Gran Abs Auto 0.02 X10*3/uL (0.00-0.03); Imm Gran Pct Auto 0.2 % (0.0-0.4); Lymphocytes Absolute Auto 2.5 X10*3/uL (1.2-4.9); Lymphocytes Percent Auto 29.8 % (20-40); Mean Corpuscular HGB Conc 33.8 g/dl (31.0-35.0); Mean Corpuscular Hemoglobin 28.9 pg (27.0-33.0); Mean Corpuscular Volume 85.6 fL (80.0-98.0); Mean Platelet Volume 9.8 fL (9.4-12.3); Monocytes Absolute Auto 0.5 X10*3/uL (0.1-1.2); Monocytes Percent Auto 5.8 % (2-11); Neutrophils Absolute Auto 5.2 x10*3/uL (2.0-8.3); Neutrophils Percent Auto 61.3 % (45-73); Platelet Count 215 X10*3/uL (160-400); Red Blood Count 4.94 X10*6/uL (4.20-5.50); Red Cell Distribution Width 12.3 % (11.0-16.0); White Blood Count 8.5 X10*3/uL (4.8-10.8)
[2022-06-03 15:54] LABS: INTERNATIONAL NORM RATIO 0.9 (0.9-1.1); Prothrombin Time 10.5 SEC (10.0-13.1)
[2022-06-03 15:56] LABS: Partial Thromboplastin Time 30.1 SEC (26.0-36.4)
[2022-06-03 16:00] LABS: COVID-19 Test Negative (Negative); IDNOW Serial# BCCEAD1C
[2022-06-03 16:12] LABS: Alanine Aminotransferase 19 U/L (0-31); Albumin Level 4.5 g/dL (3.5-5.0); Alkaline Phosphatase 95 U/L (39-117); Anion Gap 8 (12-20); Aspartate Amino Transferase 17 U/L (5-31); Bilirubin Direct < 0.2 mg/dL (0.0-0.5); Bilirubin Total 0.4 mg/dL (0.0-1.0); Blood Urea Nitrogen 15 mg/dL (9-16); Calcium 9.6 mg/dL (8.4-10.2); Carbon Dioxide 33 mmol/L (22-29); Chloride 100 mmol/L (96-108); Creatinine Clr Calc Pharmacy 69.2; Estimated Glomerular Filt Rate > 60; Glucose Random 93 mg/dL (60-115); Magnesium 2.2 mg/dL (1.6-2.6); Potassium 3.6 mmol/L (3.3-5.1); Sodium 137 mmol/L (135-145); Total Protein 7.3 g/dL (6.5-8.0)
[2022-06-03 16:26] LABS: Troponin-I High Sensitivity < 3.5 ng/L (<3.5-17.0)
[2022-06-03 17:33] LABS: Troponin-I High Sensitivity < 3.5 ng/L (<3.5-17.0)
[2022-06-03 18:42] VITALS: PULSE 73; RESP 12
[2022-06-03 18:53] LABS: Appearance Urine Clear; Color Urine Yellow; Glucose Urine UA Negative (Negative); Leukocyte Esterase Urine Negative (Negative); Nitrite Urine Negative (Negative); Urine Blood Negative (Negative); Urine Ketones Negative (Negative); Urine Protein Negative (Neg-Trace)
[2022-06-03 19:02] LABS: Glucose, Whole Blood 118 mg/dL (60-115)
[2022-06-03 19:03] LABS: Amphetamine Screen Urine Not Detected (Not Detect); Barbiturates, Urine Not Detected (Not Detect); Benzodiazepines Screen Urine Not Detected (Not Detect); Cannabinoid Screen Urine Not Detected (Not Detect); Cocaine Screen Urine Not Detected (Not Detect); Fentanyl, urine Not Detected (Not Detect); Opiate Screen Urine Not Detected (Not Detect); Phencyclidine Screen Urine Not Detected (Not Detect)
--- NOTE | 2022-06-03 19:22 | PHA.MEDREC ---
Pharmacy Consult ? Medication Reconciliation Pharmacy has completed the medication reconciliation. Patient confirmed medications. Maria Esther Julien, BobD
[2022-06-03 19:32] LABS: Troponin-I High Sensitivity < 3.5 ng/L (<3.5-17.0)
[2022-06-03 19:53] VITALS: BP 127/77; PULSE 92; RESP 20; TEMP 36.6; O2SAT 97
--- NOTE | 2022-06-03 20:56 | PC.NURSE ---
IV removed. Pt tolerated well. Discharge instructions reviewed with pt. Pt verbalizes understanding.
== END 2022-06-03 21:26 | disposition home or self-care (01) ==
PROVIDERS: Physician Assistant; Emergency Provider Emergency Medicine; PCP Student in an Organized Health Care Education/Training Program
DX: R07.9 Chest pain, unspecified (principal); Z20.822 Contact with and (suspected) exposure to COVID-19; E11.9 Type 2 diabetes mellitus without complications; E78.5 Hyperlipidemia, unspecified; F17.210 Nicotine dependence, cigarettes, uncomplicated; Z98.84 Bariatric surgery status; Z79.84 Long term (current) use of oral hypoglycemic drugs; Z79.899 Other long term (current) drug therapy
CPT/HCPCS: 20612; 36415; 71045; 80048; 80076; 80307; 81003; 82947; 83735; 84484; 85025; 85610; 85730; 87635; 93005; 99212; 99285

== ENCOUNTER 2022-06-14 08:16 | Outpatient (REF) | payer MEDICAID, SELFPAY ==
--- NOTE | ~2022-06-14 | FL_ITS ---
EXAMINATION: XR FLUOROSCOPY UPPER GI WITH AIR CLINICAL INFORMATION: Post gastric bypass, now presents with retrosternal chest pain. COMPARISON: None. TECHNIQUE: Routine upper GI air-contrast study was performed in upright and lying position. FINDINGS: Following oral administration of thick barium and effervescent granules, there is normal propagation of bolus from the oral cavity through the pharynx and esophagus and into the stomach without any evidence of obstruction, narrowing or stricture. Following placing patient supine and prone lying, there is gastric bypass surgery with a small-appearing stomach. There is constant gastroesophageal reflux seen throughout the exam. The gastroduodenal opening is widely patent. No ulceration or gastric erosion seen. FLUOROSCOPY TIME: 1.2 minutes. DOSE AREA PRODUCT: 18.036 uGy-m2 (microgray-meter squared). FL/FL upper GI w air IMPRESSION: Gastric bypass surgical changes with a small stomach and widely patent gastroduodenal anastomosis. There is a large gastroesophageal reflux. No gastric ulceration or obstruction seen. There are surgical sutures in the right upper quadrant from previous cholecystectomy.
== END 2022-06-14 08:17 | disposition home or self-care (01) ==
LOC: HO.XRAY 08:16
PROVIDERS: Visit Provider Physician Assistant Surgical
DX: R11.10 Vomiting, unspecified (principal); Z98.84 Bariatric surgery status
CPT/HCPCS: 74246

== ENCOUNTER → 2022-06-16 14:40 | Outpatient (BNVA) | payer MEDICAID, SELFPAY | PROVIDERS: PCP Student in an Organized Health Care Education/Training Program; Visit Provider Physician Assistant Surgical | DX: E66.3 Overweight (principal); Z68.27 Body mass index [BMI] 27.0-27.9, adult; R10.9 Unspecified abdominal pain; Z98.84 Bariatric surgery status | CPT/HCPCS: 99212 ==

== ENCOUNTER 2022-06-17 13:30 | Outpatient (RCR) | payer MEDICAID, SELFPAY ==
--- NOTE | 2022-06-03 15:18 | MHC.OT.EP ---
[address] [phone] Occupational Therapy Plan of Care Date of Evaluation: 06/03/22 Diagnosis: s/p L repeat cubital tunnel release and anterior ulnar nerve transposition Assessment: Nayely is a 61 yr old female who is 7 weeks s/p left repeat Cubital Tunnel Release and anterior ulnar nerve transposition, 04/15/[address] Bautista. Patient c/o 7/10 pain in left medial elbow with hypersensitivity of scar site. Pt. presents with decreased elbow ROM, tightness and numbness in 4 & 5th digits. A 61.4% functional limitation is reported per the Quick DASH assessment. 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 She is out of work until 07/06/22. Pt. would benefit from skilled OT services to learn desensitization techniques, improve ROM/strength and return to PLOF. Frequency and Duration: The patient will be seen 2x/wk for 6 weeks Short Term Goals: Decrease elbow pain to <4/10 Increase elbow flexion by 10 degrees IND with desensitization exercises and scar massage Improve artifacts conservator strength by 5# to increase ease with lifting/carrying Intermediate Goals: Pain free with BADL's/IADL's Improve elbow flex/ext to WNL's Improve left gross grasp by 15# IND with progression of HEP Quick DASH <20% Treatment Plan: Therapeutic Exercise Therapeutic Activity Home Exercise Program Patient Education Desensitization/Sensory Re-ed Edema Control Ultrasound MHP Cold Packs Soft Tissue Mobilization Kinesiotaping Electronically Signed By: Татьяна Martinez, OTR/L Please Sign and return to therapist. Thank you once again for your referral.
== END 2022-06-23 09:11 | disposition home or self-care (01) ==
LOC: HO.OT 13:30
PROVIDERS: PCP Student in an Organized Health Care Education/Training Program; Visit Provider Physician Assistant
DX: G56.22 Lesion of ulnar nerve, left upper limb (principal)
CPT/HCPCS: 97035; 97110; 97140; 97166

== ENCOUNTER 2022-06-24 05:54 | Day surgery (SDC) | payer MEDICAID, SELFPAY ==
--- NOTE | 2022-06-18 19:28 | MHC.SHP ---
Pre-Procedural Eval Section A Date of Service: 06/18/22 The patient is an INPATIENT: No The History & Physical has been completed within 30 days and I have reviewed it.: Yes Section B Chief Complaint: Bariatric surgery status Relevant Family History (Specify if Yes): No Relevant Social History: None Present Medications: None Medical History: No relevant PMH History of Previous Operations: Relevant previous surgery/procedure and date(s) (Lap gastric bypass) Allergies: Allergies Allergy/AdvReac Type Severity Reaction Status Date / Time Penicillins Allergy Intermediate HIVES Verified 06/16/22 14:54 sulfamethoxazole Allergy Intermediate BLISTERS- Verified 06/16/22 14:54 [From BACTRIM] DELGADO - NERVE ENDINGS IN HAND/ERYTHEMA MULTIFORM trimethoprim [From BACTRIM] Allergy Intermediate BLISTERS- Verified 06/16/22 14:54 DELGADO - NERVE ENDINGS IN HAND/ERYTHEMA MULTIFORM latex [Latex] Allergy Mild RASH Verified 06/16/22 14:54 theophylline AdvReac Intermediate TACHYCARDIA Verified 06/16/22 14:54 TEGADERM Allergy Intermediate SKIN TEARS Uncoded 06/03/22 14:08 From COMPAZINE AdvReac Severe SEIZURES Uncoded 06/03/22 14:08 Review of Systems Sugical H&P ROS: Negative: Constitution, Cardiovascular, Respiratory, Neurological, Psychiatric, Hem-Onc, Allergic/Immunologic, Genitourinary, Musculoskeletal, Integumentary, Endocrine and Eyes/Ears/Nose/Throat and Yes, Specify: Gastrointestinal (epigastric pain) Exam Surgical H&P Exam: Normal: HEENT, Normal: Heart, Normal: Lungs, Normal: Extremities, Normal: Skin and Normal: Neurological and Not Evaluated: Abdomen (epigastric tenderness) Plan Diagnosis/Plan: Unchanged (EGD to assess for aastomotic ulcer. Risks for perforation and bleeding were discussed with patient. She is in agreement with the plan) I have reviewed the history and physical and performed a pertinent physical examination on my patient. No changes have occurred unless specified. Time Spent With Patient Time: Total time managing care of this patient today ____ minutes.
[2022-06-23 08:09] LABS: COVID-19 Test Negative (Negative); IDNOW Serial# 16C4AD1C
--- NOTE | 2022-06-23 09:41 | P.CONAN_ITS ---
Documented by User: Daily Aburto NP 06/23/22 09:43 HPI - Anesthesia Eval Consult details Narrative: 61yo F for Upper Endoscopy oxycodone prn PMFSH Active Problems Active Problems: All Active Problems (Updated 06/16/22 @ 15:21 by SIMONE Montalvo) GERD (gastroesophageal reflux disease) (Acute) Ganglion cyst of dorsum of left wrist (Acute) Abdominal pain (Acute) COVID-19 (Acute) Asthma (Acute) Sebaceous cyst (Acute) Abscess (Acute) Overweight (BMI 25.0-29.9) (Acute) Epidermal inclusion cyst (Acute) Trigger finger, left middle finger (Acute) Trigger finger, left ring finger (Acute) Emesis (Acute) Stiffness of left hand joint (Acute) Hidradenitis suppurativa (Acute) Left hand pain (Acute) Numbness and tingling in left hand (Acute) Contusion of right ankle (Acute) Carpal tunnel syndrome of left wrist (Acute) Cubital tunnel syndrome on left (Acute) Dyslipidemia (Acute) Non-toxic multinodular goiter (Acute) Diabetes type 2, controlled (Acute) Anastomotic ulcer (Acute) S/P gastric bypass (Acute) Borderline diabetes (Acute) Past Medical History Medical History Anastomotic ulcer Anxiety Asthma Borderline diabetes Depression Diabetes type 2, controlled DVT (deep venous thrombosis) Dyslipidemia GERD (gastroesophageal reflux disease) High cholesterol History of restless legs syndrome Non-toxic multinodular goiter Family History Family History Mother Diabetes mellitus CHF (congestive heart failure) Kidney failure Cervical cancer Brother No problems noted. Brother No problems noted. Family history of problems with anesthesia: No Surgical History Surgical History (Updated 06/24/22 @ 06:06 by Lenore Gauthier RN) History of excision of epidermal inclusion cyst (03/23/22) History of excision of mass (10/26/21) History of hysterectomy History of surgery History of surgery on left wrist History of tooth extraction Hx of cholecystectomy Hx of elbow surgery Hx of esophagogastroduodenoscopy Hx of excision of epidermal inclusion cyst (12/25/21) Hx of hand surgery S/P gastric bypass S/P trigger finger release History of Problems with Anesthesia: No Social History Social History (Updated 06/03/22 @ 14:11 by Bridgette Ren [facility]) Household Members: Spouse Are you a primary pharmacy customer care specialist to a significant other at home: No Do you presently have visiting nurse or other home services: No Alcohol intake: never Patient Tobacco Use Status: Former Tobacco user Quit Date: 1 week ago Tobacco use type: Cigarette Cigarette Packs Per Day: 0 Cigarettes Per Day: 1 Years Smoked: 30 Use of substances other than those prescribed or required for medical reasons: No Are you DNR?: No Advance Directives: No Advance Directives Information Provided: Yes Current occupational status: employed 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 Meds Allergies Allergy/AdvReac Type Severity Reaction Status Date / Time Penicillins Allergy Intermediate HIVES Verified 06/16/22 14:54 sulfamethoxazole Allergy Intermediate BLISTERS- Verified 06/16/22 14:54 [From BACTRIM] DELGADO - NERVE ENDINGS IN HAND/ERYTHEMA MULTIFORM trimethoprim [From BACTRIM] Allergy Intermediate BLISTERS- Verified 06/16/22 14:54 DELGADO - NERVE ENDINGS IN HAND/ERYTHEMA MULTIFORM latex [Latex] Allergy Mild RASH Verified 06/16/22 14:54 theophylline AdvReac Intermediate TACHYCARDIA Verified 06/16/22 14:54 TEGADERM Allergy Intermediate SKIN TEARS Uncoded 06/03/22 14:08 From COMPAZINE AdvReac Severe SEIZURES Uncoded 06/03/22 14:08 Home Medications Medication Instructions Recorded Confirmed Last Taken Type hydrochlorothiazide 12.5 mg capsule 12.5 mg PO DAILY 05/09/20 06/24/22 04/14/22 History hydroxyzine HCl 25 mg tablet 50 mg PO BEDTIME 06/04/20 06/24/22 04/14/22 History pramipexole 0.25 mg tablet 1 tab DAILY 10/20/21 06/24/22 04/14/22 History sertraline 100 mg tablet 1 tab PO BEDTIME 10/20/21 06/24/22 04/14/22 History tizanidine 4 mg tablet 1 tab PO BEDTIME 10/20/21 06/24/22 12/22/21 History ferrous sulfate 325 mg (65 mg 325 mg PO DAILY 06/01/22 06/24/22 06/17/22 History iron) tablet,delayed release cyanocobalamin (vitamin B-12) 1,000 mcg PO QAM 06/03/22 06/24/22 Unknown History 1,000 mcg tablet cyclobenzaprine 5 mg tablet 5 mg PO BEDTIME PRN muscle spasm 06/03/22 06/24/22 Unknown History metformin 500 mg tablet,extended 500 mg PO BID 06/03/22 06/24/22 Unknown History release 24 hr sucralfate 100 mg/mL oral 10 ml PO BID 06/17/22 06/24/22 Unknown History suspension Exam Exam Date and Time: June 23, 2022 0941 Pertinent Lab Results Pertinent Lab Results: Laboratory Tests 06/23/22 07:48 COVID-19 ([facility]) Negative COVID-19 Clin Com See Note Laboratory Tests 06/03/22 06/03/22 15:38 15:38 WBC 8.5 Hgb 14.3 Hct 42.3 Plt Count 215 Sodium 137 Potassium 3.6 Chloride 100 Carbon Dioxide 33 H BUN 15 Creatinine 0.82 Narrative Narrative: EKG 02/2022 Vent. Rate : 078 BPM ? ? Atrial Rate : 078 BPM ?? P-R Int : 164 ms? QRS Dur : 072 ms ? ? QT Int : 358 ms ? ? ? P-R-T Axes : 017 028 020 degrees ?? QTc Int : 408 ms ? Normal sinus rhythm Normal ECG When compared with ECG of 28-OCT-2020 21:36, No significant change was found Assessment and Plan Assessment Anesthesia Assessment: Chart Reviewed Final Anesthetic Review Family History of Problems with Anesthesia: No History of Problems with Anesthesia: No Documented by User: Angela Byrnes MD 06/24/22 08:16 [facility] Past Medical History Medical History Anastomotic ulcer Anxiety Asthma Borderline diabetes Depression Diabetes type 2, controlled DVT (deep venous thrombosis) Dyslipidemia GERD (gastroesophageal reflux disease) High cholesterol History of restless legs syndrome Non-toxic multinodular goiter Family History Family History Mother Diabetes mellitus CHF (congestive heart failure) Kidney failure Cervical cancer Brother No problems noted. Brother No problems noted. Surgical History Surgical History (Updated 06/24/22 @ 06:06 by Lenore Gauthier RN) History of excision of epidermal inclusion cyst (03/23/22) History of excision of mass (10/26/21) History of hysterectomy History of surgery History of surgery on left wrist History of tooth extraction Hx of cholecystectomy Hx of elbow surgery Hx of esophagogastroduodenoscopy Hx of excision of epidermal inclusion cyst (12/25/21) Hx of hand surgery S/P gastric bypass S/P trigger finger release Social History Social History (Updated 06/03/22 @ 14:11 by ADITYA Lovett) Household Members: Spouse Are you a primary pharmacy customer care specialist to a significant other at home: No Do you presently have visiting nurse or other home services: No Alcohol intake: never Patient Tobacco Use Status: Former Tobacco user Quit Date: 1 week ago Tobacco use type: Cigarette Cigarette Packs Per Day: 0 Cigarettes Per Day: 1 Years Smoked: 30 Use of substances other than those prescribed or required for medical reasons: No Are you DNR?: No Advance Directives: No Advance Directives Information Provided: Yes Current occupational status: employed 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 Meds Allergies Allergy/AdvReac Type Severity Reaction Status Date / Time Penicillins Allergy Intermediate HIVES Verified 06/16/22 14:54 sulfamethoxazole Allergy Intermediate BLISTERS- Verified 06/16/22 14:54 [From BACTRIM] DELGADO - NERVE ENDINGS IN HAND/ERYTHEMA MULTIFORM trimethoprim [From BACTRIM] Allergy Intermediate BLISTERS- Verified 06/16/22 14:54 DELGADO - NERVE ENDINGS IN HAND/ERYTHEMA MULTIFORM latex [Latex] Allergy Mild RASH Verified 06/16/22 14:54 theophylline AdvReac Intermediate TACHYCARDIA Verified 06/16/22 14:54 TEGADERM Allergy Intermediate SKIN TEARS Uncoded 06/03/22 14:08 From COMPAZINE AdvReac Severe SEIZURES Uncoded 06/03/22 14:08 Home Medications Medication Instructions Recorded Confirmed Last Taken Type hydrochlorothiazide 12.5 mg capsule 12.5 mg PO DAILY 05/09/20 06/24/22 04/14/22 History hydroxyzine HCl 25 mg tablet 50 mg PO BEDTIME 06/04/20 06/24/22 04/14/22 History pramipexole 0.25 mg tablet 1 tab DAILY 10/20/21 06/24/22 04/14/22 History sertraline 100 mg tablet 1 tab PO BEDTIME 10/20/21 06/24/22 04/14/22 History tizanidine 4 mg tablet 1 tab PO BEDTIME 10/20/21 06/24/22 12/22/21 History ferrous sulfate 325 mg (65 mg 325 mg PO DAILY 06/01/22 06/24/22 06/17/22 History iron) tablet,delayed release cyanocobalamin (vitamin B-12) 1,000 mcg PO QAM 06/03/22 06/24/22 Unknown History 1,000 mcg tablet cyclobenzaprine 5 mg tablet 5 mg PO BEDTIME PRN muscle spasm 06/03/22 06/24/22 Unknown History metformin 500 mg tablet,extended 500 mg PO BID 06/03/22 06/24/22 Unknown History release 24 hr sucralfate 100 mg/mL oral 10 ml PO BID 06/17/22 06/24/22 Unknown History suspension Exam Height,Weight and Vital Signs: Height 5 ft 3 in Weight 70.307 kg Vital Signs Temp Pulse Resp BP Pulse Ox O2 Del Method 98.1 F 78 15 108/71 98 06/24/22 06:18 06/24/22 06:18 06/24/22 06:18 06/24/22 06:18 06/24/22 06:18 06/24/22 06:18 Pertinent Lab Results Pertinent Lab Results: Laboratory Tests 06/23/22 07:48 COVID-19 ([facility]ANSA) Negative COVID-19 Clin Com See Note Laboratory Tests 06/03/22 06/03/22 15:38 15:38 WBC 8.5 Hgb 14.3 Hct 42.3 Plt Count 215 Sodium 137 Potassium 3.6 Chloride 100 Carbon Dioxide 33 H BUN 15 Creatinine 0.82 Lab Results 06/23/22 06/24/22 Range/Units 07:48 06:32 POC Glucose 131 H (60-115) mg/dL COVID-19 (HANSA) Negative (Negative) COVID-19 Clin Com See Note Airway Mallampati Class: II TM Dist: >3cm Neck ROM: Full Denture: Upper Partial: Lower Loose/Missing/Broken Teeth: No (Denies broken or loose teeth) Heart: RRR Lungs: CTAB Assessment and Plan Assessment Anesthesia Assessment: Anesthesia Plan Discussed Final Anesthetic Review NPO: Yes ASA Class: III Final Preanesthetic Review: No Changes in Pt Med Stat, Meds/Allgs Chart Reviewed, Consent Obtained/Reviewed and Anes Risks/Benef Reviewed Patient Risk: Intermediate Procedure Risk: Low Assessment/Block/Sedation in SS: Assess/Block/Sedation-SS Anesthetic Plan Anesthetic Plan: MAC: Disposition: Standard PACU
[2022-06-24 06:08] VITALS: BMI 27.4
[2022-06-24 06:18] VITALS: BP 108/71; PULSE 78; RESP 15; TEMP 36.7; O2SAT 98
[2022-06-24] MEDS: Lactated Ringers 1,000 ML 100 ML IVCONT (06:27)
[2022-06-24 06:37] LABS: Glucose, Whole Blood 131 mg/dL (60-115)
[2022-06-24 08:04] VITALS: BP 128/67; PULSE 72; RESP 16; TEMP 36.6; O2SAT 98
--- NOTE | 2022-06-24 08:08 | PM.OP ---
Brief Operative Note Date of Service: 06/24/22 Pre-op diagnosis: Epigastric pain, s/p gastric bypass Post-op diagnosis: same (Normal post-bypass EGD) Procedure: PROCEDURE DATE: ?06/24/22 PREOPERATIVE DIAGNOSIS: Epigastric pain, s/p gastric bypass POSTOPERATIVE DIAGNOSIS: ?Same as above. Normal post-bypass EGD PROCEDURE: Xgdejsva-zqrmvo-dabhbrxvuln with biopsy Surgeon: ?Ronnie Pa M.D.. Ph.D. Independent Consultant: ?None ? Anesthesia: IV sedation Estimated blood loss: ?Minimal FINDINGS AND PROCEDURE: ? OPERATIVE INDICATIONS: ?The patient is a 61 year old female known to me who underwent a laparoscopic gastric bypass by me. The patient had excellent weight loss so far but has developed epigastric pain. She reports a history of active smoking and has a previous history of an anastomotic ulcer.? Based on this information I recommended an upper endoscopy to evaluate the patient's symptoms.? Risks and complications of the surgery were discussed with the patient in advance particularly the possibility of perforation or bleeding that may require surgical intervention. The patient understood the risks and was in agreement with the plan. ? PROCEDURE: After informed consent was obtained by the patient, the patient was ?transferred to the Operating Room and was placed in the supine position.? After successful induction of IV sedation, a mouth block was placed and the patient was placed in the left lateral decubitus position. An upper endoscopy was performed next, the oropharynx and esophagus appeared within the normal limits. There was no hiatal hernia.? The z-line was smooth. The small pouch was entered, appeared to be of normal size. There was no gastritis and the gastrojejunostomy was patent. A biopsy was obtained from the gastric pouch. No significant bleeding was noted from any of the biopsy sites. There was no anastomotic ulcer.? At that point the scope was advanced into the proximal small intestine (proximal José Manuel limb) to a distance of 75 cm from incisors, which appeared to be normal as well. The José Manuel limb and the pouch were decompressed and the scope was withdrawn from the patient's mouth. The patient was awaken and was transferred in stable condition to the Recovery Room for further care. I was present and performed all steps of the procedure. There were no residents to assist with this case. Ronnie Pa M.D., Ph.D. Surgeon: Donald Pa MD Anesthesia: MAC Was an Independent Consultant used for this Procedure?: No Estimated blood loss (mL): 0 IV fluids (mL): 400 Urine output (mL): 0 (No Dawn to record output) Pathology: other (Gastric pouch x1) Condition: stable Disposition: PACU
[2022-06-24 08:19] VITALS: BP 119/74; PULSE 76; RESP 18; TEMP 36.8; O2SAT 96
[2022-07-01 21:13] LABS: Cotinine, U 1291 ng/mL; Nicotine, U 3565 ng/mL
== END 2022-06-24 09:33 | disposition home or self-care (01) ==
PROVIDERS: Physician Assistant Surgical; PCP Student in an Organized Health Care Education/Training Program; Visit Provider Surgery
PROC: 0DJ08ZZ Inspection of Upper Intestinal Tract, Via Natural or Artificial Opening Endoscopic (ICD-10-PCS; CPT 43235; principal; 2022-06-24 07:30)
DX: R10.13 Epigastric pain (principal); Z98.84 Bariatric surgery status; Z87.11 Personal history of peptic ulcer disease; E66.3 Overweight; Z68.27 Body mass index [BMI] 27.0-27.9, adult; K21.9 Gastro-esophageal reflux disease without esophagitis; E78.5 Hyperlipidemia, unspecified; E04.2 Nontoxic multinodular goiter; J45.909 Unspecified asthma, uncomplicated; E11.9 Type 2 diabetes mellitus without complications; Z79.51 Long term (current) use of inhaled steroids; Z79.84 Long term (current) use of oral hypoglycemic drugs; Z88.0 Allergy status to penicillin; Z88.2 Allergy status to sulfonamides; Z91.040 Latex allergy status; Z86.718 Personal history of other venous thrombosis and embolism; Z90.49 Acquired absence of other specified parts of digestive tract; F17.210 Nicotine dependence, cigarettes, uncomplicated; Z20.822 Contact with and (suspected) exposure to COVID-19
CPT/HCPCS: 43239; 80323; 82947; 87635; 88305; 88342

== ENCOUNTER → 2022-06-29 12:48 | Outpatient (BNVA) | payer MEDICAID, SELFPAY | PROVIDERS: PCP Student in an Organized Health Care Education/Training Program; Visit Provider Orthopaedic Surgery | DX: M67.432 Ganglion, left wrist (principal); G56.22 Lesion of ulnar nerve, left upper limb; G56.02 Carpal tunnel syndrome, left upper limb; R20.0 Anesthesia of skin; Z98.890 Other specified postprocedural states | CPT/HCPCS: 99212 ==

== ENCOUNTER 2022-07-01 11:08 | Outpatient (REF) | payer MEDICAID, SELFPAY ==
--- NOTE | ~2022-07-01 | US_ITS ---
EXAMINATION: US ABDOMEN LIMITED CLINICAL INFORMATION: Abdominal pain. COMPARISON: None TECHNIQUE: Real-time imaging of the right upper quadrant abdominal viscera. FINDINGS: PANCREAS: Normal. LIVER: The liver is normal in size. The liver contour is normal. Parenchymal echogenicity is mildly increased. No focal hepatic lesion. There is no intrahepatic biliary duct dilatation seen. GALLBLADDER: The gallbladder has been surgically removed. COMMON BILE DUCT: Normal in caliber measuring 0.6 cm in diameter. RIGHT KIDNEY: There is normal cortical thickness. Mild pelvic fullness is noted. No renal calculi or focal parenchymal lesions. The kidney measures 11.0 cm in maximum dimension. FREE FLUID: None. US/US abdomen limited IMPRESSION: There is mild pelvic fullness right kidney. No echogenic stones. Mild increased hepatic echogenicity.
== END 2022-07-01 11:09 | disposition home or self-care (01) ==
LOC: HO.US 11:08
PROVIDERS: Visit Provider Physician Assistant Surgical
DX: R10.9 Unspecified abdominal pain (principal)
CPT/HCPCS: 76705

== ENCOUNTER → 2022-07-02 09:48 | Outpatient (BNVA) | payer MEDICAID, SELFPAY | PROVIDERS: PCP Student in an Organized Health Care Education/Training Program; Visit Provider Physician Assistant Surgical | DX: E66.3 Overweight (principal); R11.10 Vomiting, unspecified; R10.9 Unspecified abdominal pain; Z98.84 Bariatric surgery status; Z68.27 Body mass index [BMI] 27.0-27.9, adult | CPT/HCPCS: 99212 ==

== ENCOUNTER 2022-07-02 10:24 | Emergency (ER) | payer MEDICAID, SELFPAY ==
[2022-07-02 10:30] VITALS: BP 130/80; PULSE 95; RESP 17; TEMP 36.7; O2SAT 96; BMI 27.3
--- NOTE | 2022-07-02 10:48 | ED.SKABFB ---
HPI - Skin/Abscess/Foreign Bdy General Chief complaint: Skin/Abscess/Foreign Body Stated complaint: Cyst on Groin Time Seen by Provider: 07/02/22 10:43 Source: patient Mode of arrival: ambulatory Limitations: no limitations History of Present Illness HPI narrative: 61-year-old female with a past medical history DM 2, asthma, GERD, and recurrent abscesses since age 14 presents to the emergency department with complaint of a cyst on her left groin x 3 days with a burning sensation. She last had surgery in November on her labia for treatment of an abscess by Dr. Zambrano and presented to the emergency department 3 weeks later for incision and drainage of a left labial abscess. Patient tolerated procedure well at that time was discharged on a 10 day course of doxycycline and was provided oxycodone for pain management. At the time she was advised to follow-up with surgery. Currently pt states the cyst has been increasing in pain without any drainage. She states she has attempted to sit in warm water to facilitate drainage without success. She denies any fever, chills, difficulty urinating, changes in bowel pattern, or abdominal pain. MD complaint: abscess/boil Onset (ago): day(s) (3) Location: genitals (left labia) Severity: moderate Severity scale (1-10): 6 Quality: burning Pain Consistency: constant Relieving factors: none Exacerbating factors: palpation Context: none Associated symptoms: denies other symptoms Treatments prior to arrival: none Related Data Home Medications Medication Instructions Recorded Confirmed hydrochlorothiazide 12.5 mg capsule 12.5 mg PO DAILY 05/09/20 07/02/22 hydroxyzine HCl 25 mg tablet 50 mg PO BEDTIME 06/04/20 07/02/22 pramipexole 0.25 mg tablet 1 tab DAILY 10/20/21 07/02/22 sertraline 100 mg tablet 1 tab PO BEDTIME 10/20/21 07/02/22 tizanidine 4 mg tablet 1 tab PO BEDTIME 10/20/21 07/02/22 ferrous sulfate 325 mg (65 mg 325 mg PO DAILY 06/01/22 07/02/22 iron) tablet,delayed release cyanocobalamin (vitamin B-12) 1,000 mcg PO QAM 06/03/22 07/02/22 1,000 mcg tablet cyclobenzaprine 5 mg tablet 5 mg PO BEDTIME PRN muscle spasm 06/03/22 07/02/22 metformin 500 mg tablet,extended 500 mg PO BID 06/03/22 07/02/22 release 24 hr sucralfate 100 mg/mL oral 10 ml PO BID 06/17/22 07/02/22 suspension Previous Rx's Medication Instructions Recorded cholecalciferol (vitamin D3) 50 50 mcg PO DAILY #30 caps 12/15/20 mcg (2,000 unit) capsule acarbose 25 mg tablet 25 mg PO TID 30 days #90 tabs 12/31/20 albuterol sulfate 90 mcg/actuation 2 puff inhalation Q4-6H PRN 06/21/21 aerosol inhaler shortness of breath or wheezing #6.7 grams fluticasone propionate 50 2 spray intranasal DAILY #16 grams 06/21/21 mcg/actuation nasal spray,suspension (Flonase Allergy Relief) blood-glucose meter (FreeStyle #1 ea 08/21/21 Lite Meter kit) lidocaine 5 % topical patch 1 patch topical DAILY PRN pain #15 02/26/22 ea blood sugar diagnostic (FreeStyle #150 strips 03/30/22 Lite Strips) thiamine HCl (vitamin B1) 100 mg 100 mg PO DAILY #90 tabs 06/07/22 tablet pantoprazole 40 mg tablet,delayed 40 mg PO BID #60 tabs 06/17/22 release clindamycin phosphate 1 % topical 1 appl topical BID #60 grams 07/02/22 gel doxycycline hyclate 100 mg capsule 100 mg PO BID 7 days #14 caps 07/02/22 oxycodone 5 mg capsule 5 mg PO TID PRN pain 3 days #10 07/02/22 caps Allergies Allergy/AdvReac Type Severity Reaction Status Date / Time Penicillins Allergy Intermediate HIVES Verified 07/02/22 09:55 sulfamethoxazole Allergy Intermediate BLISTERS- Verified 07/02/22 09:55 [From BACTRIM] DELGADO - NERVE ENDINGS IN HAND/ERYTHEMA MULTIFORM trimethoprim [From BACTRIM] Allergy Intermediate BLISTERS- Verified 07/02/22 09:55 DELGADO - NERVE ENDINGS IN HAND/ERYTHEMA MULTIFORM latex [Latex] Allergy Mild RASH Verified 07/02/22 09:55 theophylline AdvReac Intermediate TACHYCARDIA Verified 07/02/22 09:55 TEGADERM Allergy Intermediate SKIN TEARS Uncoded 06/29/22 13:19 From COMPAZINE AdvReac Severe SEIZURES Uncoded 06/29/22 13:19 Review of Systems Review of Systems: In addition to documented HPI above, the additional ROS was obtained: Constitutional: No Weight loss, No Fever, No Chills ENT/Mouth: No Ear Pain, No Nasal Congestion, No Sinus Pain, No Hoarseness, No sore throat, No Rhinorrhea, No Swallowing Difficulty Cardiovascular: No Chest Pain, No SOB Respiratory: No Cough, No Sputum, No Wheezing Gastrointestinal: No Nausea, No Vomiting, No Diarrhea, No Constipation, No Abdominal pain Genitourinary: No Dysuria, No Urinary Frequency, No Hematuria, No Urinary Incontinence/retention, No Urgency, No Flank Pain Musculoskeletal: No joint pain, No Myalgias, No Joint Swelling Skin: No Skin Lesions, No rash Neuro: No Weakness, No Numbness, No Paresthesias Yes all other systems are reviewed and are negative PMFSH Past Medical History Attestation statement: The following information was validated with the patient. Source: old records reviewed Medical History Anastomotic ulcer Anxiety Asthma Borderline diabetes Depression Diabetes type 2, controlled DVT (deep venous thrombosis) Dyslipidemia GERD (gastroesophageal reflux disease) High cholesterol History of restless legs syndrome Non-toxic multinodular goiter Surgical History History of excision of epidermal inclusion cyst (03/23/22) History of excision of mass (10/26/21) History of hysterectomy History of surgery History of surgery on left wrist History of tooth extraction Hx of cholecystectomy Hx of elbow surgery Hx of esophagogastroduodenoscopy Hx of excision of epidermal inclusion cyst (12/25/21) Hx of hand surgery S/P gastric bypass S/P trigger finger release Family History Family History Mother Diabetes mellitus CHF (congestive heart failure) Kidney failure Cervical cancer Brother No problems noted. Brother No problems noted. 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 Physical Exam Vital Signs: Vital Signs: Last Vital Signs Temp 98.1 F 07/02/22 10:30 Pulse 95 07/02/22 10:30 Resp 17 07/02/22 10:30 BP 130/80 07/02/22 10:30 Pulse Ox 96 07/02/22 10:30 O2 Del Method 07/02/22 10:30 BMI result Body Mass Index 27.3 Const: General: cooperative, alert and awake Nutritional Appearance: well nourished Orientation/consciousness: patient oriented x3 Limitations: no limitations HEENT: Head: Yes normal to inspection, Yes normocephalic and Yes atraumatic Ears: hearing grossly normal bilaterally and external ears normal General nose exam: Normal external nose present and Normal nares present Face and sinus: Yes normal facial exam and Yes face symmetric Mouth: Normal oral and palatal mucosa present Eyes: General: appearance normal, both eyes and all related structures Visual Angela: normal visual angela by confrontation Alignment and Position: alignment normal Periorbital: periorbital findings normal Eyelids: Yes eyelids normal Conjunctivae: conjunctivae normal Sclerae: sclerae normal Corneas: corneas normal Pupils: Equal, round and reactive pupils present EOM: EOMs intact bilaterally Neck: Neck: Yes normal visual inspection and Yes full ROM Chest: Chest palpation & inspection: normal inspection of the chest Resp: Effort & Inspection: normal respiratory effort and not labored Auscultation: clear to auscultation bilaterally, no crackles, no rhonchi and no wheezes Cardio: Rate: regular rate Rhythm: regular rhythm GI: Inspection: Yes normal to inspection Palpation (GI): Soft to palpation and nontender Auscultation: normal bowel sounds : External Female Exam: normal external appearance and other (reddened abscess noted in left groin) Back/Spine/Pelvis: Cervical Spine: cervical ROM normal Thoracic/Lumbar Spine: thoraco-lumbar ROM normal Skin: General skin exam: fluctuance (left groin abscess) Rashes: no rashes Trauma: no lacerations or abrasions Neuro: General: patient oriented x3, tone normal and moves all extremities Cranial nerves: Yes Equal, round and reactive pupils present Cognition (Neuro): normal cognition Gait exam (Neuro): Normal gait present Motor exam (neuro): 5/5 motor strength present throughout Extrem: General: Yes normal to inspection, Yes full ROM and Yes capillary refill normal Psych: Appearance: grossly normal Mental Status: mental status grossly normal Speech and movement: Normal speech and movement present Affect: normal affect Attitude: cooperative Thought process: Normal thought process present Thought content: Normal thought content present Insight: Good insight present (Psych) Judgement: Good judgement present (Psych) Medications Administered Discontinued Medications Generic Name Dose Route Start Last Admin Trade Name Richardq PRN Reason Stop Dose Admin Lidocaine HCl 5 ml 07/02/22 11:01 07/02/22 11:13 Lidocaine Hcl 1 % Mpf 5 Ml Vial INFILTRATI 07/02/22 11:02 5 ml ONCE ONE Administration Medical Decision Making Medical Decision Making MDM Narrative: 61-year-old female with a past medical history DM 2, asthma, GERD, and recurrent abscesses since age 14 presents to the emergency department with complaint of a cyst on her left groin x 3 days with a burning sensation. Left groin assessed with fluctuate mass present beneath the skin with pain reproducible with palpation. Abscess cleansed with betadine swabs and anesthetized with 2 ml 1% lidocaine with good effect. Abscess incised with 11 blade wiith small amount brown purulent drainage expressed. No packing needed at this time. Pt tolerated without incident. Pt educated on warm water baths to help with further drainage, prescription antibiotics for draining abscess and clindamycin ointment to be applied to her affected area. Oxycodone prescribed for pain management once lidocaine wears off. Pt is safe for discharge with plan to contact Dr Zambrano (general surgery) for further recommendations and management. HPI, PE, and plan discussed with patient with no unanswered questions at this time. Educated to please return to the emergency department with new, worsening, or any other concerning emergent symptoms. Recommended follow-up with the primary care provider further treatment and management. Procedures Abscess I/D Site: other (groin) Side (if applicable): left Local Anesthetic: lidocaine 1% Amount of anesthesia used (mL): 2 Technique: needle aspiration and incised with blade Amount of fluid expressed (mL): 0.5 Sent for culture/gram staining?: No Irrigation: No Packing used?: none Discharge Plan Discharge Clinical Impression: Abscess Patient Disposition: Home, Self-Care Instructions: Abscess (ED), Sitz Bath (DC), Abscess Follow-up (ED), Hidradenitis Suppurativa (ED), Incision and Drainage (ED) Additional Instructions: You have been diagnosed with an abscess most likely related to your hydradenitis suppurativa. Your abscess has been opened up and drained, however; it is recommended that you do warm soaks several times per day to allow further drainage of infection. An antibiotic has been prescribed for you. Please take full course of antibiotics. Pain medication has been prescribed also, please take as directed. Do not drive, drink alcohol, or use any other narcotic medications well taking this pain medication. In antibiotic gel has been prescribed you to apply 2 times a day to areas with frequent recurrent flares. Please contact Dr Zambrano at the phone number under discharge instructions regarding her abscess for further treatment and management. Please follow-up with your primary care for further treatment and management. Please return to the emergency department for new, worsening, or any other concerning emergent symptoms. Prescriptions: New clindamycin phosphate 1 % gel 1 appl topical BID Qty: 60 0RF Rx Instructions: Apply 2 times a day to skin areas that are subject to recurrent flares. Begin after completing course of by mouth antibiotics doxycycline hyclate 100 mg capsule 100 mg PO BID 7 Days Qty: 14 0RF oxycodone 5 mg capsule 5 mg PO TID PRN (Reason: pain) 3 Days Qty: 10 0RF Rx Instructions: Partial Fill upon patient request. No Action cholecalciferol (vitamin D3) 50 mcg (2,000 unit) capsule 50 mcg PO DAILY Qty: 30 11RF (DME) FreeStyle Lite Strips Strip See Rx Instructions .ROUTE .COMPLEX Qty: 150 6RF Dose Instruction: USE TO TEST BLOOD SUGAR TWICE DAILY Rx Instructions: USE TO TEST BLOOD SUGAR TWICE DAILY thiamine HCl (vitamin B1) 100 mg tablet 100 mg PO DAILY Qty: 90 3RF hydroxyzine HCl 25 mg tablet 50 mg PO BEDTIME sertraline 100 mg tablet 1 tab PO BEDTIME pramipexole 0.25 mg tablet 1 tab DAILY tizanidine 4 mg tablet 1 tab PO BEDTIME albuterol sulfate 90 mcg/actuation HFA aerosol inhaler 2 puff inhalation Q4-6H PRN (Reason: shortness of breath or wheezing) Qty: 6.7 0RF fluticasone propionate [Flonase Allergy Relief] 50 mcg/actuation spray,suspension 2 spray intranasal DAILY Qty: 16 0RF Rx Instructions: administer into each nostril lidocaine 5 % adhesive patch,medicated 1 patch topical DAILY PRN (Reason: pain) Qty: 15 0RF Rx Instructions: leave on most painful area for up to 12 hrs metformin 500 mg tablet extended release 24 hr 500 mg PO BID cyclobenzaprine 5 mg tablet 5 mg PO BEDTIME PRN (Reason: muscle spasm) acarbose 25 mg tablet 25 mg PO TID 30 Days Qty: 90 4RF hydrochlorothiazide 12.5 mg capsule 12.5 mg PO DAILY ferrous sulfate 325 mg (65 mg iron) tablet,delayed release (DR/EC) 325 mg PO DAILY sucralfate 100 mg/mL suspension 10 ml PO BID pantoprazole 40 mg tablet,delayed release (DR/EC) 40 mg PO BID Qty: 60 6RF (DME) blood-glucose meter [FreeStyle Lite Meter] Kit See Rx Instructions .Route Qty: 1 0RF Rx Instructions: As directed test blood sugar two times a day cyanocobalamin (vitamin B-12) 1,000 mcg tablet 1,000 mcg PO QAM Referrals: Flaco Zambrano MD [Physician] - Joyce Tapia MD [Primary Care Provider] - Print Language: Kinyarwanda
[2022-07-02] MEDS: Lidocaine HCl 1 % MPF 5 ML VIAL INFILTRATI (11:13)
== END 2022-07-02 12:30 | disposition home or self-care (01) ==
PROVIDERS: Emergency Provider Student in an Organized Health Care Education/Training Program; PCP Student in an Organized Health Care Education/Training Program
DX: L02.214 Cutaneous abscess of groin (principal); Z79.899 Other long term (current) drug therapy
CPT/HCPCS: 10060; 99282; 99284

== ENCOUNTER → 2022-07-13 12:40 | Outpatient (BNVA) | payer MEDICAID, SELFPAY | PROVIDERS: PCP Student in an Organized Health Care Education/Training Program; Visit Provider Surgery | DX: L72.3 Sebaceous cyst (principal); L02.91 Cutaneous abscess, unspecified | CPT/HCPCS: 99212 ==

== ENCOUNTER 2022-07-15 15:23 | Emergency (ER) | payer MEDICAID, SELFPAY ==
--- NOTE | ~2022-07-15 | XR_ITS ---
EXAMINATION: XR LUMBOSACRAL SPINE CLINICAL INFORMATION: Fall. Pain. COMPARISON: CT abdomen pelvis 11/17/2019 TECHNIQUE: Three views of the lumbosacral spine. FINDINGS: No fracture. Vertebrae have normal height and alignment. No spondylolysis or spondylolisthesis. Minor degenerative lipping at the anterior endplates of lower thoracic and lumbar vertebrae. There is mild disc height narrowing at L3-L4. Mild to moderate facet joint arthrosis at the lumbosacral junction. Sacroiliac joints are normal. Surgical changes of abdomen, surgical clips and sutures. XR/XR lumbar spine 2-3V IMPRESSION: 1. No acute abnormality. 2. Degenerative spondylosis of lumbar spine.
--- NOTE | ~2022-07-15 | XR_ITS ---
EXAMINATION: XR KNEE, LEFT CLINICAL INFORMATION: Fall. Pain. COMPARISON: Left knee 05/19/2022 TECHNIQUE: Four views of the left knee. FINDINGS: There is no fracture. No dislocation. No acute abnormality. No joint effusion. Minor joint narrowing of the medial femoral tibial joint. No significant spur and no erosions. No soft tissue calcification. XR/XR knee LT 3V IMPRESSION: 1. No acute abnormality. 2. Minor joint narrowing of the medial femoral tibial joint.
[2022-07-15 15:32] VITALS: BP 133/66; PULSE 87; RESP 16; TEMP 36.8; O2SAT 97; BMI 27.3
--- NOTE | 2022-07-15 15:33 | ED.FALL ---
HPI - Fall General Chief Complaint: Extremity Problem <Kaylen Sargent NP - Last Filed: 07/15/22 15:35> Stated Complaint: fell left knee and back pain <Kaylen Sargent NP - Last Filed: 07/15/22 15:35> Time Seen by Provider: 07/15/22 15:42 <Kaylen Sargent NP - Last Filed: 07/15/22 15:35> Source: patient <Gerri Wilkerson NP - Last Filed: 07/15/22 18:13> Mode of arrival: ambulatory <Gerri Wilkerson NP - Last Filed: 07/15/22 18:13> Limitations: no limitations <ANALI Durán Last Filed: 07/15/22 18:13> History of Present Illness HPI Narrative: 61-year-old female past medical history of GERD, asthma, DM 2, obesity status post gastric bypass, and chronic lower back pain [facility] presents to the emergency department today after sustaining a fall at home. She states when she got up to stand, her left knee buckled underneath her and she fell, hitting her lower back on a coffee table. In the emergency department she is ambulating with a slow guarded gait, with no instability. She reports acute low back pain and new pins and needle sensation in her left foot with pain in her left knee. She denies any shortness of breath, chest pain, headache item changes in vision, loss of bowel or bladder, urinary hesitancy. <Gerri Wilkerson NP - Last Filed: 07/15/22 18:13> MD complaint: fall <Gerri Wilkerson NP - Last Filed: 07/15/22 18:13> Onset (ago): hour(s) <ANALI Durán Last Filed: 07/15/22 18:13> Fall from: standing <Gerri Wilkerson NP - Last Filed: 07/15/22 18:13> Fall witnessed: yes, by family <ANALI Durán Last Filed: 07/15/22 18:13> Place fall occurred: home <ANALI Durán Last Filed: 07/15/22 18:13> Loss of consciousness: none <Gerri Wilkerson NP - Last Filed: 07/15/22 18:13> Prolonged down time: no <Gerri Wilkerson NP - Last Filed: 07/15/22 18:13> Location of injury: other (knee) <Gerri Wilkerson NP - Last Filed: 07/15/22 18:13> Severity: severe <Gerri Wilkerson NP - Last Filed: 07/15/22 18:13> Severity scale (1-10): 8 <Gerri Wilkerson NP - Last Filed: 07/15/22 18:13> Quality: aching <Gerri Wilkerson NP - Last Filed: 07/15/22 18:13> Related Data Home Medications: Home Medications Medication Instructions Recorded Confirmed hydrochlorothiazide 12.5 mg capsule 12.5 mg PO DAILY 05/09/20 07/13/22 hydroxyzine HCl 25 mg tablet 50 mg PO BEDTIME 06/04/20 07/13/22 pramipexole 0.25 mg tablet 1 tab DAILY 10/20/21 07/13/22 sertraline 100 mg tablet 1 tab PO BEDTIME 10/20/21 07/13/22 tizanidine 4 mg tablet 1 tab PO BEDTIME 10/20/21 07/13/22 ferrous sulfate 325 mg (65 mg 325 mg PO DAILY 06/01/22 07/13/22 iron) tablet,delayed release cyanocobalamin (vitamin B-12) 1,000 mcg PO QAM 06/03/22 07/13/22 1,000 mcg tablet cyclobenzaprine 5 mg tablet 5 mg PO BEDTIME PRN muscle spasm 06/03/22 07/13/22 metformin 500 mg tablet,extended 500 mg PO BID 06/03/22 07/13/22 release 24 hr sucralfate 100 mg/mL oral 10 ml PO BID 06/17/22 07/13/22 suspension Previous Rx's Medication Instructions Recorded cholecalciferol (vitamin D3) 50 50 mcg PO DAILY #30 caps 12/15/20 mcg (2,000 unit) capsule acarbose 25 mg tablet 25 mg PO TID 30 days #90 tabs 12/31/20 albuterol sulfate 90 mcg/actuation 2 puff inhalation Q4-6H PRN 06/21/21 aerosol inhaler shortness of breath or wheezing #6.7 grams fluticasone propionate 50 2 spray intranasal DAILY #16 grams 06/21/21 mcg/actuation nasal spray,suspension (Flonase Allergy Relief) blood-glucose meter (FreeStyle #1 ea 08/21/21 Lite Meter kit) lidocaine 5 % topical patch 1 patch topical DAILY PRN pain #15 02/26/22 ea blood sugar diagnostic (FreeStyle #150 strips 03/30/22 Lite Strips) thiamine HCl (vitamin B1) 100 mg 100 mg PO DAILY #90 tabs 06/07/22 tablet pantoprazole 40 mg tablet,delayed 40 mg PO BID #60 tabs 06/17/22 release clindamycin phosphate 1 % topical 1 appl topical BID #60 grams 07/02/22 gel doxycycline hyclate 100 mg capsule 100 mg PO BID 7 days #14 caps 07/02/22 oxycodone 5 mg capsule 5 mg PO TID PRN pain 3 days #10 07/02/22 caps oxycodone 5 mg capsule 5 mg PO Q4-6H PRN pain #14 caps 07/15/22 <Kaylen Sargent NP - Last Filed: 07/15/22 15:35> Allergies/Adverse Reactions: Allergies Allergy/AdvReac Type Severity Reaction Status Date / Time Penicillins Allergy Intermediate HIVES Verified 07/13/22 12:55 sulfamethoxazole Allergy Intermediate BLISTERS- Verified 07/13/22 12:55 [From BACTRIM] DELGADO - NERVE ENDINGS IN HAND/ERYTHEMA MULTIFORM trimethoprim [From BACTRIM] Allergy Intermediate BLISTERS- Verified 07/13/22 12:55 DELGADO - NERVE ENDINGS IN HAND/ERYTHEMA MULTIFORM latex [Latex] Allergy Mild RASH Verified 07/13/22 12:55 theophylline AdvReac Intermediate TACHYCARDIA Verified 07/13/22 12:55 TEGADERM Allergy Intermediate SKIN TEARS Uncoded 07/13/22 12:55 From COMPAZINE AdvReac Severe SEIZURES Uncoded 07/13/22 12:55 <Kaylen Sargent NP - Last Filed: 07/15/22 15:35> Review of Systems Review of Systems: In addition to documented HPI above, the additional ROS was obtained: Constitutional: No Weight loss, No Fever, No Chills ENT/Mouth: No Ear Pain, No Nasal Congestion, No Sinus Pain, No Hoarseness, No sore throat, No Rhinorrhea, No Swallowing Difficulty Cardiovascular: No Chest Pain, No SOB Respiratory: No Cough, No Sputum, No Wheezing Gastrointestinal: No Nausea, No Vomiting, No Diarrhea, No Constipation, No Abdominal pain Genitourinary: No Dysuria, No Urinary Frequency, No Hematuria, No Urinary Incontinence/retention, No Urgency, No Flank Pain Musculoskeletal: No Joint Swelling Skin: No Skin Lesions, No rash Neuro: No Weakness, No Numbness, No Paresthesias <Gerri Wilkerson NP - Last Filed: 07/15/22 18:13> Yes all other systems are reviewed and are negative <Gerri Wilkerson NP - Last Filed: 07/15/22 18:13> [facility] Past Medical History Attestation statement: The following information was validated with the patient. <Gerri Wilkerson NP - Last Filed: 07/15/22 18:13> Source: old records reviewed <Gerri Wilkerson NP - Last Filed: 07/15/22 18:13> Medical History: Medical History Anastomotic ulcer Anxiety Asthma Borderline diabetes Depression Diabetes type 2, controlled DVT (deep venous thrombosis) Dyslipidemia GERD (gastroesophageal reflux disease) High cholesterol History of restless legs syndrome Non-toxic multinodular goiter <Kaylen Sargent NP - Last Filed: 07/15/22 15:35> Surgical History: Surgical History History of excision of epidermal inclusion cyst (03/23/22) History of excision of mass (10/26/21) History of hysterectomy History of surgery History of surgery on left wrist History of tooth extraction Hx of cholecystectomy Hx of elbow surgery Hx of esophagogastroduodenoscopy Hx of excision of epidermal inclusion cyst (12/25/21) Hx of hand surgery S/P gastric bypass S/P trigger finger release <Kaylen Sargent NP - Last Filed: 07/15/22 15:35> Family History Family History: Family History Mother Diabetes mellitus CHF (congestive heart failure) Kidney failure Cervical cancer Brother No problems noted. Brother No problems noted. 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 <Kaylen Sargent NP - Last Filed: 07/15/22 15:35> Physical Exam Vital Signs: Vital Signs: Last Vital Signs Temp 98.3 F 07/15/22 15:32 Pulse 87 07/15/22 15:32 Resp 16 07/15/22 15:32 BP 133/66 07/15/22 15:32 Pulse Ox 97 07/15/22 15:32 O2 Del Method 07/15/22 15:32 BMI result Body Mass Index 27.3 <Kaylen Sargent NP - Last Filed: 07/15/22 15:35> Vital Signs: Last Vital Signs Temp 98.3 F 07/15/22 15:32 Pulse 87 07/15/22 15:32 Resp 16 07/15/22 15:32 BP 133/66 07/15/22 15:32 Pulse Ox 97 07/15/22 15:32 O2 Del Method 07/15/22 15:32 BMI result Body Mass Index 27.3 <Gerri Wilkerson NP - Last Filed: 07/15/22 18:13> Nursing notes and vital signs reviewed. GENERAL APPEARANCE: A&0 x 4, generally well appearing, no acute distress HENMT: Normal to inspection, atraumatic, face symmetrical. Normal external ears, nose, and oropharynx clear. EYE: PERRLA, EOM intact, structures appear normal NECK: Supple without lymphadenopathy. No stiffness or restricted ROM. CHEST: Normal to inspection HEART: Normal rate and regular rhythm, normal S1/S2, no M/R/G LUNGS: LS CTA, moving air well. Able to speak in complete sentences. No crackles, wheezes, or rhonchi auscultated ABDOMEN: Soft, nontender, nondistended. Normal bowel sounds noted BACK: No CVAT, no obvious deformity EXTREMITIES: Moving all extremities without difficulty. No cyanosis, clubbing, or edema. Normal capillary refill. NEUROLOGICAL: Alert and oriented, moving all 4 extremities with equal strength. CN not formally tested but appearing grossly intact. Observed to ambulate with normal gait. Cognition normal SKIN: Warm and dry without any lesions, rash, or visible sores PSYCH: Cooperative, normal affect, normal thought process <Gerri Wilkerson NP - Last Filed: 07/15/22 18:13> Course Course Course Narrative: This is a rapid medical exam. Defer additional HPI, ROS, PE to primary provider. 61-year-old female with history of chronic back pain/chronic left knee pain here with a fall hitting her lower back on the coffee table and hitting her left knee. Patient ambulatory into the triage area. Denies hitting her head or loss of consciousness. Will check x-rays of left knee, lower back. Vital signs stable <Kaylen Sargent NP - Last Filed: 07/15/22 15:35> Medical Decision Making Medical Decision Making MDM Narrative: 61-year-old female past medical history of GERD, asthma, DM 2, obesity status post gastric bypass, and chronic lower back pain [facility] presents to the emergency department today after sustaining a fall at home. She states when she got up to stand, her left knee buckled underneath her and she fell, hitting her lower back on a coffee table. In the emergency department she is ambulating with a slow guarded gait, with no instability. She reports acute low back pain and new pins and needle sensation in her left foot with pain in her left knee. X-rays lumbar spine show no acute abnormality, no fracture, over vertebrae have normal height and alignment. Degenerative spondylosis of lumbar spine noted on x-ray. X-ray left knee showing no acute abnormality, no fracture, dislocation, or joint effusion. Minor joint narrowing at the medial femoral tibial joint. History, physical, and diagnostic exam consistent with chronic lumbar radiculopathy and left knee strain. Patient is safe for discharge at this time with plan to manage discomfort with [id number] Tylenol and prescribed oxycodone, rest, elevation of knee, heat and/or ice packs. HPI, PE, diagnostics, and plan discussed with patient and family with no unanswered questions at this time. Patient educated to return to the emergency department with new, worsening, or concerning emergent symptoms. Recommended to follow-up with her primary care provider for further treatment and management. *Refer to Course for additional information on consultations, diagnostic interpretation, consultations, emergency department stay, conversations with patient and family, shared decision making with patient, and more information on medical decision making* <Gerri Wilkerson NP - Last Filed: 07/15/22 18:13> Independent Interpretation I performed an independent interpretation of an: Plain X-Ray <Gerri Wilkerson NP - Last Filed: 07/15/22 18:13> Interpretation: I have independently interpreted the left knee x-ray showing no acute abnormality, no fracture no dislocation, no acute abnormality, no joint effusion. I have independently interpreted the lumbar spine x-ray showing interval no acute abnormality, no fracture, degenerative spondylosis of lumbar spine noted. <Gerri Wilkerson NP - Last Filed: 07/15/22 18:13> Radiology Impression Radiologist Impression: EXAMINATION: XR LUMBOSACRAL SPINE CLINICAL INFORMATION: Fall. Pain. COMPARISON: CT abdomen pelvis 11/17/2019 TECHNIQUE: Three views of the lumbosacral spine. FINDINGS: No fracture. Vertebrae have normal height and alignment. No spondylolysis or spondylolisthesis. Minor degenerative lipping at the anterior endplates of lower thoracic and lumbar vertebrae. There is mild disc height narrowing at L3-L4. Mild to moderate facet joint arthrosis at the lumbosacral junction. Sacroiliac joints are normal. Surgical changes of abdomen, surgical clips and sutures. XR/XR lumbar spine 2-3V IMPRESSION: 1.? No acute abnormality. 2.? Degenerative spondylosis of lumbar spine. ? Dictated By: Anurag Serrato MD Signed By: <Electronically signed by Anurag Serrato MD in [place]> 07/15/22 1620 DD/ 12 TD/TT:? Shipping Processor: SAMEER EXAMINATION: XR KNEE, LEFT CLINICAL INFORMATION: Fall. Pain. COMPARISON: Left knee 05/19/2022? TECHNIQUE: Four views of the left knee. FINDINGS: There is no fracture. No dislocation. No acute abnormality. No joint effusion. Minor joint narrowing of the medial femoral tibial joint. No significant spur and no erosions. No soft tissue calcification. XR/XR knee LT 3V IMPRESSION: 1.? No acute abnormality. 2.? Minor joint narrowing of the medial femoral tibial joint. ? Dictated By: Anurag Serrato MD Signed By: <Electronically signed by Anurag Serrato MD in [place]> 07/15/221617 DD/ 12 TD/TT:? Shipping Processor: SAMEER <Gerri Wilkerson NP - Last Filed: 07/15/22 18:13> Discharge Plan Discharge Clinical Impression: Lumbar radiculopathy, Strain of left knee <Kaylen Sargent NP - Last Filed: 07/15/22 15:35> Patient Disposition: Home, Self-Care <Kaylen Sargent NP - Last Filed: 07/15/22 15:35> Instructions: Lumbar Radiculopathy (ED), Knee Pain (ED) <Kaylen Sargent NP - Last Filed: 07/15/22 15:35> Additional Instructions: Your lumbar back x-ray shows no acute abnormality, no fracture, your vertebrae have normal alignment and height, there is degeneration of the bones and disks in your back. Your left knee x-ray shows no abnormality, no fracture, no dislocation. All history and physical exam are consistent with your lumbar radiculopathy and left knee sprain. You are safe for discharge with plan to manage her pain with [id number] Tylenol, heat or cold packs, and rest. Oxycodone or cardiac pain medication has been prescribed your preferred pharmacy for relief of pain. Please take as prescribed. Please return to the emergency department with new or worsening numbness, difficulty with ambulation, worsening pain, or any other concerning emergent symptoms. Recommended follow-up the primary care provider for further treatment and management. <Kaylen Saregnt NP - Last Filed: 07/15/22 15:35> Prescriptions: New oxycodone 5 mg capsule 5 mg PO Q4-6H PRN (Reason: pain) Qty: 14 0RF Rx Instructions: 5 mg orally as needed ;Partial Fill upon patient request. No Action cholecalciferol (vitamin D3) 50 mcg (2,000 unit) capsule 50 mcg PO DAILY Qty: 30 11RF (DME) FreeStyle Lite Strips Strip See Rx Instructions .ROUTE .COMPLEX Qty: 150 6RF Dose Instruction: USE TO TEST BLOOD SUGAR TWICE DAILY Rx Instructions: USE TO TEST BLOOD SUGAR TWICE DAILY thiamine HCl (vitamin B1) 100 mg tablet 100 mg PO DAILY Qty: 90 3RF hydroxyzine HCl 25 mg tablet 50 mg PO BEDTIME sertraline 100 mg tablet 1 tab PO BEDTIME pramipexole 0.25 mg tablet 1 tab DAILY tizanidine 4 mg tablet 1 tab PO BEDTIME albuterol sulfate 90 mcg/actuation HFA aerosol inhaler 2 puff inhalation Q4-6H PRN (Reason: shortness of breath or wheezing) Qty: 6.7 0RF fluticasone propionate [Flonase Allergy Relief] 50 mcg/actuation spray,suspension 2 spray intranasal DAILY Qty: 16 0RF Rx Instructions: administer into each nostril lidocaine 5 % adhesive patch,medicated 1 patch topical DAILY PRN (Reason: pain) Qty: 15 0RF Rx Instructions: leave on most painful area for up to 12 hrs metformin 500 mg tablet extended release 24 hr 500 mg PO BID cyclobenzaprine 5 mg tablet 5 mg PO BEDTIME PRN (Reason: muscle spasm) clindamycin phosphate 1 % gel 1 appl topical BID Qty: 60 0RF Rx Instructions: Apply 2 times a day to skin areas that are subject to recurrent flares. Begin after completing course of by mouth antibiotics doxycycline hyclate 100 mg capsule 100 mg PO BID 7 Days Qty: 14 0RF oxycodone 5 mg capsule 5 mg PO TID PRN (Reason: pain) 3 Days Qty: 10 0RF Rx Instructions: Partial Fill upon patient request. acarbose 25 mg tablet 25 mg PO TID 30 Days Qty: 90 4RF hydrochlorothiazide 12.5 mg capsule 12.5 mg PO DAILY ferrous sulfate 325 mg (65 mg iron) tablet,delayed release (DR/EC) 325 mg PO DAILY sucralfate 100 mg/mL suspension 10 ml PO BID pantoprazole 40 mg tablet,delayed release (DR/EC) 40 mg PO BID Qty: 60 6RF (DME) blood-glucose meter [FreeStyle Lite Meter] Kit See Rx Instructions .Route Qty: 1 0RF Rx Instructions: As directed test blood sugar two times a day cyanocobalamin (vitamin B-12) 1,000 mcg tablet 1,000 mcg PO QAM <Kaylen Sargent NP - Last Filed: 07/15/22 15:35> Referrals: [facility] [place] [facility]Provider Group[facility] [Primary Care Provider] - <Kaylen Sargent NP - Last Filed: 07/15/22 15:35> Print Language: Faroese <Kaylen Sargent NP - Last Filed: 07/15/22 15:35>
[2022-07-15] MEDS: oxyCODONE HCl Immed Release 5 MG TABLET PO (18:27)
== END 2022-07-15 18:37 | disposition home or self-care (01) ==
PROVIDERS: Emergency Provider Student in an Organized Health Care Education/Training Program
DX: M54.16 Radiculopathy, lumbar region (principal); S86.812A Strain of other muscle(s) and tendon(s) at lower leg level, left leg, initial encounter; W17.89XA Other fall from one level to another, initial encounter; E11.9 Type 2 diabetes mellitus without complications; Z87.891 Personal history of nicotine dependence; Y93.9 Activity, unspecified; Y92.038 Other place in apartment as the place of occurrence of the external cause; Y99.9 Unspecified external cause status
CPT/HCPCS: 72100; 73562; 99283

== ENCOUNTER 2022-07-16 18:06 | Emergency (ER) | payer MEDICAID, SELFPAY ==
--- NOTE | ~2022-07-16 | US_ITS ---
EXAMINATION: US VENOUS ULTRASOUND WITH DOPPLER LOWER EXTREMITY, LEFT CLINICAL INFORMATION: Left lower extremity swelling COMPARISON: 05/21/2022 lower extremity duplex ultrasound TECHNIQUE: Ultrasound of the deep veins is performed from the hip to the calf with compression sonography and color and pulse Doppler assessment. Spectral analysis with color-flow imaging is performed. FINDINGS: There is normal venous compression and respiratory variation and augmented flow. The visualized common femoral vein, superficial femoral vein, profunda femoral vein, popliteal vein, and the trifurcation region shows no evidence of deep venous thrombosis. There is no significant popliteal fossa cyst. A prominent left inguinal node is seen measuring 2.3 x 0.6 x 0.5 cm which maintains normal hilar architecture. If the patient's symptoms persist, followup ultrasound in 5 days 7 days might be of value to exclude proximal propagation from a non-visualized calf vein. US/US venous duplex LE LT IMPRESSION: No DVT demonstrated in the left lower extremity. A prominent left inguinal node measuring 0.5 cm short axis which maintains normal hilar architecture, possibly reactive, recommend correlation with clinical exam.
[2022-07-16 18:16] VITALS: BP 143/70; PULSE 103; RESP 16; TEMP 36.8; O2SAT 96; BMI 26.2
--- NOTE | 2022-07-16 18:20 | ED_ITS ---
HPI - General Adult General Chief complaint: General Medical <Kaylen Sargent NP - Last Filed: 07/16/22 18:20> Stated complaint: L swelling in calf r/o blood clot <Kaylen Sargent NP - Last Filed: 07/16/22 18:20> Time Seen by Provider: 07/16/22 19:47 <Kaylen Sargent NP - Last Filed: 07/16/22 18:20> Source: patient <Janel Pitts MD - Last Filed: 07/16/22 20:57> Mode of arrival: ambulatory <Janel Pitts MD - Last Filed: 07/16/22 20:57> Limitations: no limitations <Janel Pitts MD - Last Filed: 07/16/22 20:57> History of Present Illness HPI narrative: Patient comes emergency room complaining of leg swelling. Patient states that she went to see her chronic pain management physician today for injections. It was suspected that the patient's left calf was a bit more swollen than the right 1. Patient was sent to emergency room for DVT rule out. Patient states that she has no lower extremity pain. <Janel Pitts MD - Last Filed: 07/16/22 20:57> Related Data Home medications: Home Medications Medication Instructions Recorded Confirmed hydrochlorothiazide 12.5 mg capsule 12.5 mg PO DAILY 05/09/20 07/13/22 hydroxyzine HCl 25 mg tablet 50 mg PO BEDTIME 06/04/20 07/13/22 pramipexole 0.25 mg tablet 1 tab DAILY 10/20/21 07/13/22 sertraline 100 mg tablet 1 tab PO BEDTIME 10/20/21 07/13/22 tizanidine 4 mg tablet 1 tab PO BEDTIME 10/20/21 07/13/22 ferrous sulfate 325 mg (65 mg 325 mg PO DAILY 06/01/22 07/13/22 iron) tablet,delayed release cyanocobalamin (vitamin B-12) 1,000 mcg PO QAM 06/03/22 07/13/22 1,000 mcg tablet cyclobenzaprine 5 mg tablet 5 mg PO BEDTIME PRN muscle spasm 06/03/22 07/13/22 metformin 500 mg tablet,extended 500 mg PO BID 12/01/22 01/10/23 release 24 hr sucralfate 100 mg/mL oral 10 ml PO BID 06/17/22 07/13/22 suspension Previous Rx's Medication Instructions Recorded cholecalciferol (vitamin D3) 50 50 mcg PO DAILY #30 caps 12/15/20 mcg (2,000 unit) capsule acarbose 25 mg tablet 25 mg PO TID 30 days #90 tabs 12/31/20 albuterol sulfate 90 mcg/actuation 2 puff inhalation Q4-6H PRN 06/21/21 aerosol inhaler shortness of breath or wheezing #6.7 grams fluticasone propionate 50 2 spray intranasal DAILY #16 grams 06/21/21 mcg/actuation nasal spray,suspension (Flonase Allergy Relief) blood-glucose meter (FreeStyle #1 ea 08/21/21 Lite Meter kit) lidocaine 5 % topical patch 1 patch topical DAILY PRN pain #15 02/26/22 ea blood sugar diagnostic (FreeStyle #150 strips 03/30/22 Lite Strips) thiamine HCl (vitamin B1) 100 mg 100 mg PO DAILY #90 tabs 06/07/22 tablet pantoprazole 40 mg tablet,delayed 40 mg PO BID #60 tabs 06/17/22 release clindamycin phosphate 1 % topical 1 appl topical BID #60 grams 07/02/22 gel doxycycline hyclate 100 mg capsule 100 mg PO BID 7 days #14 caps 07/02/22 oxycodone 5 mg capsule 5 mg PO TID PRN pain 3 days #10 07/02/22 caps oxycodone 5 mg capsule 5 mg PO Q4-6H PRN pain #14 caps 07/15/22 <Kaylen Sargent NP - Last Filed: 07/16/22 18:20> Allergies/adverse reactions: Allergies Allergy/AdvReac Type Severity Reaction Status Date / Time Penicillins Allergy Intermediate HIVES Verified 07/13/22 12:55 sulfamethoxazole Allergy Intermediate BLISTERS- Verified 07/13/22 12:55 [From BACTRIM] DELGADO - NERVE ENDINGS IN HAND/ERYTHEMA MULTIFORM trimethoprim [From BACTRIM] Allergy Intermediate BLISTERS- Verified 07/13/22 12:55 DELGADO - NERVE ENDINGS IN HAND/ERYTHEMA MULTIFORM latex [Latex] Allergy Mild RASH Verified 07/13/22 12:55 theophylline AdvReac Intermediate TACHYCARDIA Verified 07/13/22 12:55 TEGADERM Allergy Intermediate SKIN TEARS Uncoded 07/13/22 12:55 From COMPAZINE AdvReac Severe SEIZURES Uncoded 07/13/22 12:55 <Kaylen Sargent NP - Last Filed: 07/16/22 18:20> Review of Systems Review of Systems: Constitutional : No Weight loss, No Fever, No Chills, No Night Sweats, No Fatigue, No Malaise ENT/Mouth : No Hearing loss, No Ear Pain, No Nasal Congestion, No Sinus Pain, No Hoarseness, No sore throat, No Rhinorrhea, No Swallowing Difficulty Eyes: No Eye Pain, No Swelling, No Redness, No Foreign Body, No Discharge, No Vision Changes Cardiovascular : No Chest Pain, No SOB, No Dyspnea on Exertion, No Orthopnea, No Edema, No Palpitations Respiratory : No Cough, No Sputum, No Wheezing, No Smoke Exposure, No Dyspnea Gastrointestinal : No Nausea, No Vomiting, No Diarrhea, No Constipation, No abdominal Pain, No Hematochezia, No Melena Genitourinary : no irregular bleeding, No Dysuria, No Urinary Frequency, No Hematuria, No Urinary Incontinence, No Urgency, No Flank Pain, No Urinary Flow Changes, No Hesitancy Musculoskeletal : No joint pain, No Myalgias, No Joint Swelling, complaining of calf swelling on the left leg, no pain Skin : No Skin Lesions, No rash Neuro : No Weakness, No Numbness, No Paresthesias, No Loss of Consciousness, No Dizziness, No Headache Psych : No Anxiety/Panic, No Depression, No SI/HI/AH/VH, No Social Issues, Heme/Lymph: No Bruising, No Bleeding,No Lymphadenopathy Endocrine : No Polyuria, No Polydipsia, No Temperature Intolerance <Janel Pitts MD - Last Filed: 07/16/22 20:57> [facility] Past Medical History Medical History: Medical History Anastomotic ulcer Anxiety Asthma Borderline diabetes Depression Diabetes type 2, controlled DVT (deep venous thrombosis) Dyslipidemia GERD (gastroesophageal reflux disease) High cholesterol History of restless legs syndrome Non-toxic multinodular goiter <Kaylen Sargent NP - Last Filed: 07/16/22 18:20> Surgical History: Surgical History History of excision of epidermal inclusion cyst (03/23/22) History of excision of mass (10/26/21) History of hysterectomy History of surgery History of surgery on left wrist History of tooth extraction Hx of cholecystectomy Hx of elbow surgery Hx of esophagogastroduodenoscopy Hx of excision of epidermal inclusion cyst (12/25/21) Hx of hand surgery S/P gastric bypass S/P trigger finger release <Kaylen Sargent NP - Last Filed: 07/16/22 18:20> Family History Family History: Family History Mother Diabetes mellitus CHF (congestive heart failure) Kidney failure Cervical cancer Brother No problems noted. Brother No problems noted. 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 <Kaylen Sargent NP - Last Filed: 07/16/22 18:20> Physical Exam ED Vital Signs: Vital Signs - 24 hr 07/16/22 18:16 07/16/22 20:11 Temperature 98.2 F 98.2 F Pulse Rate 103 H 78 Respiratory Rate 16 16 Blood Pressure 143/70 H 110/65 Pulse Oximetry 96 97 Oxygen Delivery Method Room Air Room Air BMI result Body Mass Index 26.2 <Kaylen Sargent NP - Last Filed: 07/16/22 18:20> Vital Signs - 24 hr 07/16/22 18:16 07/16/22 20:11 Temperature 98.2 F 98.2 F Pulse Rate 103 H 78 Respiratory Rate 16 16 Blood Pressure 143/70 H 110/65 Pulse Oximetry 96 97 Oxygen Delivery Method Room Air Room Air BMI result Body Mass Index 26.2 <Janel Pitts MD - Last Filed: 07/16/22 20:57> Const Other: Appearance: Alert. Oriented X3. No acute distress. Eyes: Pupils equal, round and reactive to light. ENT: Pharynx normal. Neck: Normal inspection. Neck supple. No lymph nodes noted. No crepitus CVS: Normal heart rate and rhythm. Pulses normal. Normal S1 and S2 Respiratory: No respiratory distress. Breath sounds normal. No Wheezing. No rales Abdomen: Soft and nontender. No rigidity. No distention. Skin: Skin warm and dry. Normal skin color. Normal skin turgor. Extremities: The left calf looks slightly more swollen than the right 1, no pitting edema, no calf pain Neuro: Oriented X 3. No motor deficit. No sensory deficit. Moving all extremities. No slurred speech. CN 2 through 12 grossly intact Psych: calm, cooperative, normal affect <Janel Pitts MD - Last Filed: 07/16/22 20:57> Course Course Course Narrative: This is a rapid medical exam. ?Defer additional HPI, ROS, PE to primary provider.? 61-year-old female with history of chronic back pain/chronic left knee pain?who was seen today by pain management and was referred into the emergency room to rule out a blood clot in the left lower extremity due to swelling. Will order venous ultrasound. VSS <Kaylen Sargent NP - Last Filed: 07/16/22 18:20> Medical Decision Making Medical Decision Making MDM Narrative: Ultrasound shows 0.5 cm prominent left inguinal, likely reactive. Patient has no pain on physical exam. Discussed the ultrasound with the patient, patient is asymptomatic. <Janel Pitts MD - Last Filed: 07/16/22 20:57> Differential Diagnosis Differential Diagnoses: The differential diagnosis associated with the presentation includes (DVT, musculoskeletal pain) <Janel Pitts MD - Last Filed: 07/16/22 20:57> Independent Interpretation I performed an independent interpretation of an: Ultrasound <Janel Pitts MD - Last Filed: 07/16/22 20:57> Interpretation: My interpretation: Patient pain <Janel Pitts MD - Last Filed: 07/16/22 20:57> Radiology Impression Discussion of test interpretation with radiology: I have reviewed the radiologist's reading. <Janel Pitts MD - Last Filed: 07/16/22 20:57> Radiologist Impression: FINDINGS: There is normal venous compression and respiratory variation and augmented flow. The visualized common femoral vein, superficial femoral vein, profunda femoral vein, popliteal vein, and the trifurcation region shows no evidence of deep venous thrombosis. ? There is no significant popliteal fossa cyst. A prominent left inguinal node is seen measuring 2.3 x 0.6 x 0.5 cm which maintains normal hilar architecture. If the patient's symptoms persist, followup ultrasound in 5 days 7 days might be of value to exclude proximal propagation from a non-visualized calf vein. US/US venous duplex LE LT IMPRESSION: No DVT demonstrated in the left lower extremity. ? A prominent left inguinal node measuring 0.5 cm short axis which maintains normal hilar architecture, possibly reactive, recommend correlation with clinical exam. <Janel Pitts MD - Last Filed: 07/16/22 20:57> Discharge Plan Discharge Clinical Impression: Left leg swelling <Kaylen Sargent NP - Last Filed: 07/16/22 18:20> Patient Disposition: Home, Self-Care <Kaylen Sargent NP - Last Filed: 07/16/22 18:20> Instructions: Leg Edema (ED) <Kaylen Sargent NP - Last Filed: 07/16/22 18:20> Additional Instructions: Please follow-up with your primary care physician tomorrow. If you have any worsening or new symptoms, please return to the emergency room or call 911 <Kaylen Sargent NP - Last Filed: 07/16/22 18:20> Prescriptions: No Action cholecalciferol (vitamin D3) 50 mcg (2,000 unit) capsule 50 mcg PO DAILY Qty: 30 11RF (DME) FreeStyle Lite Strips Strip See Rx Instructions .ROUTE .COMPLEX Qty: 150 6RF Dose Instruction: USE TO TEST BLOOD SUGAR TWICE DAILY Rx Instructions: USE TO TEST BLOOD SUGAR TWICE DAILY thiamine HCl (vitamin B1) 100 mg tablet 100 mg PO DAILY Qty: 90 3RF hydroxyzine HCl 25 mg tablet 50 mg PO BEDTIME sertraline 100 mg tablet 1 tab PO BEDTIME pramipexole 0.25 mg tablet 1 tab DAILY tizanidine 4 mg tablet 1 tab PO BEDTIME albuterol sulfate 90 mcg/actuation HFA aerosol inhaler 2 puff inhalation Q4-6H PRN (Reason: shortness of breath or wheezing) Qty: 6.7 0RF fluticasone propionate [Flonase Allergy Relief] 50 mcg/actuation spray,suspension 2 spray intranasal DAILY Qty: 16 0RF Rx Instructions: administer into each nostril lidocaine 5 % adhesive patch,medicated 1 patch topical DAILY PRN (Reason: pain) Qty: 15 0RF Rx Instructions: leave on most painful area for up to 12 hrs metformin 500 mg tablet extended release 24 hr 500 mg PO BID cyclobenzaprine 5 mg tablet 5 mg PO BEDTIME PRN (Reason: muscle spasm) clindamycin phosphate 1 % gel 1 appl topical BID Qty: 60 0RF Rx Instructions: Apply 2 times a day to skin areas that are subject to recurrent flares. Begin after completing course of by mouth antibiotics doxycycline hyclate 100 mg capsule 100 mg PO BID 7 Days Qty: 14 0RF oxycodone 5 mg capsule 5 mg PO TID PRN (Reason: pain) 3 Days Qty: 10 0RF Rx Instructions: Partial Fill upon patient request. oxycodone 5 mg capsule 5 mg PO Q4-6H PRN (Reason: pain) Qty: 14 0RF Rx Instructions: 5 mg orally as needed ;Partial Fill upon patient request. acarbose 25 mg tablet 25 mg PO TID 30 Days Qty: 90 4RF hydrochlorothiazide 12.5 mg capsule 12.5 mg PO DAILY ferrous sulfate 325 mg (65 mg iron) tablet,delayed release (DR/EC) 325 mg PO DAILY sucralfate 100 mg/mL suspension 10 ml PO BID pantoprazole 40 mg tablet,delayed release (DR/EC) 40 mg PO BID Qty: 60 6RF (DME) blood-glucose meter [FreeStyle Lite Meter] Kit See Rx Instructions .Route Qty: 1 0RF Rx Instructions: As directed test blood sugar two times a day cyanocobalamin (vitamin B-12) 1,000 mcg tablet 1,000 mcg PO QAM <Kaylen Sargent NP - Last Filed: 07/16/22 18:20>
[2022-07-16 20:11] VITALS: BP 110/65; PULSE 78; RESP 16; TEMP 36.8; O2SAT 97
== END 2022-07-16 21:20 | disposition home or self-care (01) ==
PROVIDERS: Emergency Provider Emergency Medicine; PCP Student in an Organized Health Care Education/Training Program
DX: R60.0 Localized edema (principal); Z87.891 Personal history of nicotine dependence; Z79.899 Other long term (current) drug therapy
CPT/HCPCS: 93971; 99284

== ENCOUNTER 2022-07-19 08:11 | Outpatient (REF) | payer MEDICAID, SELFPAY ==
[2022-07-19 08:49] LABS: Blood Urea Nitrogen 18 mg/dL (9-16); Estimated Glomerular Filt Rate > 60
== END 2022-07-19 08:12 | disposition home or self-care (01) ==
LOC: HO.LAB 08:11
PROVIDERS: PCP Student in an Organized Health Care Education/Training Program; Visit Provider Physician Assistant Surgical
DX: R10.9 Unspecified abdominal pain (principal); R11.10 Vomiting, unspecified
CPT/HCPCS: 36415; 82565; 84520

== ENCOUNTER 2022-07-20 07:51 | Outpatient (REF) | payer MEDICAID, SELFPAY ==
--- NOTE | ~2022-07-20 | CT_ITS ---
EXAMINATION: CT ABDOMEN AND PELVIS WITH CONTRAST CLINICAL INFORMATION: Vomiting. COMPARISON: None TECHNIQUE: Multidetector volumetric images were obtained from the superior aspect of the liver through the pubic symphysis following administration 85 mL of Omnipaque 350 intravenous contrast. Sagittal and coronal reformatted images were obtained on the technologist's workstation. Oral contrast: No This CT examination was performed using dose optimization techniques as appropriate, variously including the following: *Automated exposure control *Adjustment of mA and/or kV according to patient size (this includes techniques or standardized protocols for targeted exams where dose is matched to indication/reason for exam; i.e. extremities or head) *Use of iterative reconstruction technique DLP: 506 mGy-cm FINDINGS: LUNG BASES: The visualized lung bases are unremarkable. LIVER, GALLBLADDER, AND BILIARY TREE: The liver is normal in size, shape, and attenuation. No focal hepatic lesion or biliary ductal dilatation is present. The gallbladder has been removed. The CBD is slightly prominent and measures 6 mm. PANCREAS: The pancreas is unremarkable. SPLEEN: Unremarkable. ADRENAL GLANDS: Unremarkable. KIDNEYS AND URETERS: The kidneys are normal in size, shape, and attenuation. No hydronephrosis, hydroureter, or calculi seen. No perinephric stranding. BLADDER: Unremarkable. GASTROINTESTINAL TRACT: There is moderate scattered stool, gas, diverticuli and oral contrast throughout the colon without distention or diverticulitis. The small bowel loops are normal caliber. Appendix is not visualized. There are gastric bypass or reduction changes left epigastrium. There is no free air or free fluid. ABDOMINAL WALL: No significant hernia is appreciated. LYMPH NODES: Normal. VASCULAR: Unremarkable. PELVIC VISCERA: There is no free air or free fluid. The uterus is not visualized likely surgically removed or atrophic. No free fluid seen. OSSEOUS STRUCTURES: Unremarkable. CT/CT abdomen pelvis w IV con IMPRESSION: Mild colonic diverticulosis without diverticulitis. Mild constipation. Left upper quadrant gastric bypass or gastric reduction surgery. No gastric distention. Previous cholecystectomy. Fleischner guidelines were followed.
[2022-07-20] MEDS: Barium Sulfate Oral (Vanilla) 450 ML ORAL.SUSP 900 ML PO (10:21)
[2022-07-20] MEDS: iohexoL 350 MG/ML 100 ML INFUS..BTL IV (10:21)
== END 2022-07-20 07:52 | disposition home or self-care (01) ==
LOC: HO.CT 07:51
PROVIDERS: PCP Student in an Organized Health Care Education/Training Program; Visit Provider Physician Assistant Surgical
DX: R10.9 Unspecified abdominal pain (principal); R11.10 Vomiting, unspecified
CPT/HCPCS: 74177; Q9967

== ENCOUNTER 2022-07-28 07:48 | Day surgery (SDC) | payer MEDICAID, SELFPAY ==
[2022-07-22 09:44] VITALS: BMI 28.0
--- NOTE | 2022-07-27 08:36 | HO.ANESPROP2 ---
Documented by User: Daily Aburto NP 07/27/22 08:36 HPI - Anesthesia Eval Consult details Narrative: 61yo F for Excision Cyst x 5-neck,right and left shoulder,lower back,right buttocks s/p EGD 06/2022 with [facility] Active Problems Active Problems: All Active Problems (Updated 07/17/22 @ 00:02 by Background Chris) Overweight (BMI 25.0-29.9) (Acute) Epidermal inclusion cyst (Acute) Trigger finger, left middle finger (Acute) Trigger finger, left ring finger (Acute) Emesis (Acute) Stiffness of left hand joint (Acute) Hidradenitis suppurativa (Acute) Left hand pain (Acute) Numbness and tingling in left hand (Acute) Contusion of right ankle (Acute) Carpal tunnel syndrome of left wrist (Acute) Cubital tunnel syndrome on left (Acute) Abscess (Acute) Sebaceous cyst (Acute) COVID-19 (Acute) Abdominal pain (Acute) Ganglion cyst of dorsum of left wrist (Acute) Numbness of right hand (Acute) GERD (gastroesophageal reflux disease) (Acute) Asthma (Acute) Dyslipidemia (Acute) Non-toxic multinodular goiter (Acute) Diabetes type 2, controlled (Acute) Anastomotic ulcer (Acute) S/P gastric bypass (Acute) Borderline diabetes (Acute) Past Medical History Medical History (Updated 07/17/22 @ 00:02 by Background Chris) Anastomotic ulcer Anxiety Asthma Borderline diabetes Depression Diabetes type 2, controlled DVT (deep venous thrombosis) Dyslipidemia GERD (gastroesophageal reflux disease) High cholesterol History of restless legs syndrome Non-toxic multinodular goiter Family History Family History Mother Diabetes mellitus CHF (congestive heart failure) Kidney failure Cervical cancer Brother No problems noted. Brother No problems noted. Family history of problems with anesthesia: No Surgical History Surgical History (Updated 07/22/22 @ 09:34 by Nayely Thompson RN) History of excision of epidermal inclusion cyst (03/23/22) History of excision of mass (10/26/21) History of hysterectomy History of surgery History of surgery on left wrist History of tooth extraction Hx of cholecystectomy Hx of elbow surgery Hx of esophagogastroduodenoscopy Hx of excision of epidermal inclusion cyst (12/25/21) Hx of hand surgery S/P gastric bypass S/P trigger finger release History of Problems with Anesthesia: No Social History Social History Household Members: Spouse Are you a primary career technical education instructor to a significant other at home: No Do you presently have visiting nurse or other home services: No Alcohol intake: never Patient Tobacco Use Status: Former Tobacco user Quit Date: 2021 Tobacco use type: Cigarette Cigarette Packs Per Day: 0 Cigarettes Per Day: 1 Years Smoked: 30 Use of substances other than those prescribed or required for medical reasons: No Have you been hit, kicked, punched, or otherwise hurt by someone within the past year? 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 Meds Allergies Allergy/AdvReac Type Severity Reaction Status Date / Time Penicillins Allergy Intermediate HIVES Verified 07/13/22 12:55 sulfamethoxazole Allergy Intermediate BLISTERS- Verified 07/13/22 12:55 [From BACTRIM] DELGADO - NERVE ENDINGS IN HAND/ERYTHEMA MULTIFORM trimethoprim [From BACTRIM] Allergy Intermediate BLISTERS- Verified 07/13/22 12:55 DELGADO - NERVE ENDINGS IN HAND/ERYTHEMA MULTIFORM latex [Latex] Allergy Mild RASH Verified 07/13/22 12:55 theophylline AdvReac Intermediate TACHYCARDIA Verified 07/13/22 12:55 TEGADERM Allergy Intermediate SKIN TEARS Uncoded 07/13/22 12:55 From COMPAZINE AdvReac Severe SEIZURES Uncoded 07/13/22 12:55 Home Medications Medication Instructions Recorded Confirmed Last Taken Type hydrochlorothiazide 12.5 mg capsule 12.5 mg PO DAILY 05/09/20 07/22/22 04/14/22 History hydroxyzine HCl 25 mg tablet 50 mg PO BEDTIME 06/04/20 07/22/22 04/14/22 History pramipexole 0.25 mg tablet 1 tab DAILY 10/20/21 07/22/22 04/14/22 History sertraline 100 mg tablet 1 tab PO BEDTIME 10/20/21 07/22/22 04/14/22 History tizanidine 4 mg tablet 1 tab PO BEDTIME 10/20/21 07/22/22 12/22/21 History ferrous sulfate 325 mg (65 mg 325 mg PO DAILY 06/01/22 07/22/22 06/17/22 History iron) tablet,delayed release cyanocobalamin (vitamin B-12) 1,000 mcg PO QAM 06/03/22 07/22/22 Unknown History 1,000 mcg tablet cyclobenzaprine 5 mg tablet 5 mg PO BEDTIME PRN muscle spasm 06/03/22 07/22/22 Unknown History metformin 500 mg tablet,extended 500 mg PO BID 06/03/22 07/22/22 Unknown History release 24 hr sucralfate 100 mg/mL oral 10 ml PO BID 06/17/22 07/22/22 Unknown History suspension Exam Exam Date and Time: July 27, 2022 0836 Height,Weight and Vital Signs: Height 5 ft 3 in Weight 71.668 kg Pertinent Lab Results Pertinent Lab Results: Laboratory Tests 06/23/22 07:48 COVID-19 ([facility]) Negative COVID-19 Clin Com See Note Laboratory Tests 06/03/22 06/03/22 15:38 15:38 WBC 8.5 Hgb 14.3 Hct 42.3 Plt Count 215 Sodium 137 Potassium 3.6 Chloride 100 Carbon Dioxide 33 H BUN 15 Creatinine 0.82 Lab Results 06/23/22 06/24/22 Range/Units 07:48 06:32 POC Glucose 131 H (60-115) mg/dL COVID-19 ([facility]) Negative (Negative) COVID-19 Clin Com See Note Narrative Narrative: EKG 02/2022 Vent. Rate : 078 BPM ? ? Atrial Rate : 078 BPM ?? P-R Int : 164 ms? QRS Dur : 072 ms ? ? QT Int : 358 ms ? ? ? P-R-T Axes : 017 028 020 degrees ?? QTc Int : 408 ms ? Normal sinus rhythm Normal ECG When compared with ECG of 28-OCT-2020 21:36, No significant change was found Assessment and Plan Assessment Anesthesia Assessment: Chart Reviewed Final Anesthetic Review Family History of Problems with Anesthesia: No History of Problems with Anesthesia: No Documented by User: Lucinda Flores MD 07/28/22 09:23 [facility] Past Medical History Medical History (Updated 07/17/22 @ 00:02 by Donnell Perez) Anastomotic ulcer Anxiety Asthma Borderline diabetes Depression Diabetes type 2, controlled DVT (deep venous thrombosis) Dyslipidemia GERD (gastroesophageal reflux disease) High cholesterol History of restless legs syndrome Non-toxic multinodular goiter Family History Family History Mother Diabetes mellitus CHF (congestive heart failure) Kidney failure Cervical cancer Brother No problems noted. Brother No problems noted. Surgical History Surgical History (Updated 07/22/22 @ 09:34 by Nayely Thompson RN) History of excision of epidermal inclusion cyst (03/23/22) History of excision of mass (10/26/21) History of hysterectomy History of surgery History of surgery on left wrist History of tooth extraction Hx of cholecystectomy Hx of elbow surgery Hx of esophagogastroduodenoscopy Hx of excision of epidermal inclusion cyst (12/25/21) Hx of hand surgery S/P gastric bypass S/P trigger finger release Social History Social History Household Members: Spouse Are you a primary career technical education instructor to a significant other at home: No Do you presently have visiting nurse or other home services: No Alcohol intake: never Patient Tobacco Use Status: Former Tobacco user Quit Date: 2021 Tobacco use type: Cigarette Cigarette Packs Per Day: 0 Cigarettes Per Day: 1 Years Smoked: 30 Use of substances other than those prescribed or required for medical reasons: No Have you been hit, kicked, punched, or otherwise hurt by someone within the past year? 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 Meds Allergies Allergy/AdvReac Type Severity Reaction Status Date / Time Penicillins Allergy Intermediate HIVES Verified 07/13/22 12:55 sulfamethoxazole Allergy Intermediate BLISTERS- Verified 07/13/22 12:55 [From BACTRIM] DELGADO - NERVE ENDINGS IN HAND/ERYTHEMA MULTIFORM trimethoprim [From BACTRIM] Allergy Intermediate BLISTERS- Verified 07/13/22 12:55 DELGADO - NERVE ENDINGS IN HAND/ERYTHEMA MULTIFORM latex [Latex] Allergy Mild RASH Verified 07/13/22 12:55 theophylline AdvReac Intermediate TACHYCARDIA Verified 07/13/22 12:55 TEGADERM Allergy Intermediate SKIN TEARS Uncoded 07/13/22 12:55 From COMPAZINE AdvReac Severe SEIZURES Uncoded 07/13/22 12:55 Home Medications Medication Instructions Recorded Confirmed Last Taken Type hydrochlorothiazide 12.5 mg capsule 12.5 mg PO DAILY 05/09/20 07/22/22 04/14/22 History hydroxyzine HCl 25 mg tablet 50 mg PO BEDTIME 06/04/20 07/22/22 04/14/22 History pramipexole 0.25 mg tablet 1 tab DAILY 10/20/21 07/22/22 04/14/22 History sertraline 100 mg tablet 1 tab PO BEDTIME 10/20/21 07/22/22 04/14/22 History tizanidine 4 mg tablet 1 tab PO BEDTIME 10/20/21 07/22/22 12/22/21 History ferrous sulfate 325 mg (65 mg 325 mg PO DAILY 06/01/22 07/22/22 06/17/22 History iron) tablet,delayed release cyanocobalamin (vitamin B-12) 1,000 mcg PO QAM 06/03/22 07/22/22 Unknown History 1,000 mcg tablet cyclobenzaprine 5 mg tablet 5 mg PO BEDTIME PRN muscle spasm 06/03/22 07/22/22 Unknown History metformin 500 mg tablet,extended 500 mg PO BID 06/03/22 07/22/22 Unknown History release 24 hr sucralfate 100 mg/mL oral 10 ml PO BID 06/17/22 07/22/22 Unknown History suspension Exam Airway Mallampati Class: II TM Dist: >3cm Neck ROM: Full Heart: rrr Lungs: cta Assessment and Plan Assessment Anesthesia Assessment: Anesthesia Plan Discussed Final Anesthetic Review NPO: Yes ASA Class: III Final Preanesthetic Review: No Changes in Pt Med Stat, Meds/Allgs Chart Reviewed, Consent Obtained/Reviewed and Anes Risks/Benef Reviewed Patient Risk: Low Procedure Risk: Low Anesthetic Plan Anesthetic Plan: GA and Agree w/ Assess. and Plan Disposition: Standard PACU
[2022-07-28] VITALS (9 sets, daily range): BP systolic 116–144; BP diastolic 63–78; PULSE 75–88; RESP 15–20; TEMP 36.2–36.7; O2SAT 95–99; BMI 27.3
[2022-07-28 08:27] LABS: Glucose, Whole Blood 147 mg/dL (60-115)
[2022-07-28] MEDS: Lactated Ringers 1,000 ML 100 ML IVCONT (08:31)
[2022-07-28] MEDS: vancomycin HCL 1,000 MG in 0.9 % Sodium Chloride 250 ML 270 MG IV (08:32)
--- NOTE | 2022-07-28 10:13 | MHC.SHP ---
Pre-Procedural Eval Section A Date of Service: 07/28/22 The patient is an INPATIENT: No Changes since office visit: Yes Patient answered all questions; No Cold of Flu in the past 2 weeks, No New Medical Problems and No Changes in Medication The History & Physical has been completed within 30 days and I have reviewed it.: Yes Section B Chief Complaint: Sebaceous cyst,Cutaneous abscess, unspecified Allergies: Allergies Allergy/AdvReac Type Severity Reaction Status Date / Time Penicillins Allergy Intermediate HIVES Verified 07/13/22 12:55 sulfamethoxazole Allergy Intermediate BLISTERS- Verified 07/13/22 12:55 [From BACTRIM] DELGDAO - NERVE ENDINGS IN HAND/ERYTHEMA MULTIFORM trimethoprim [From BACTRIM] Allergy Intermediate BLISTERS- Verified 07/13/22 12:55 DELGADO - NERVE ENDINGS IN HAND/ERYTHEMA MULTIFORM latex [Latex] Allergy Mild RASH Verified 07/13/22 12:55 theophylline AdvReac Intermediate TACHYCARDIA Verified 07/13/22 12:55 TEGADERM Allergy Intermediate SKIN TEARS Uncoded 07/13/22 12:55 From COMPAZINE AdvReac Severe SEIZURES Uncoded 07/13/22 12:55 Plan Diagnosis/Plan: Unchanged I have reviewed the history and physical and performed a pertinent physical examination on my patient. No changes have occurred unless specified. Time Spent With Patient Time: Total time managing care of this patient today ____ minutes.
--- NOTE | 2022-07-28 11:56 | P.OP_ITS ---
Operative Note Operative Note Date of Service: 07/28/22 Narrative: Preoperative diagnosis: Sebaceous cyst of back x6 Postoperative diagnosis: Same Procedure: Excision of sebaceous cyst of back x6 Surgeon: Flaco Zambrano MD Analytical Consultant: Nata Leon PA-C Anesthesia: General endotracheal Indications for procedure: 61-year-old female patient with history of multiple skin lesions reporting multiple areas of painful sebaceous cyst including in the midline neck, bilateral shoulders mid back and buttock. She is requested excision of these lesions. Operative findings: Multiple inflamed epidermal inclusion cyst (sebaceous cyst) of the back including neck, shoulder, and buttock. Specimen: Sebaceous cyst of back Estimated blood loss: 5 mL Complications: None Procedure details: Patient was brought to the OR placed in a supine position. After administering general anesthesia she was placed in a prone position. The previously marked symptomatic sebaceous cyst were prepped with Betadine which included an area from the base of the neck to the buttock. These were then draped in a sterile fashion. A surgical time-out was called the consent confirmed. Patient received preoperative antibiotics and Venodyne boots were in place. Local anesthesia was then infiltrated around each cyst. Beginning in the mid back an elliptical incision was made around the cyst in the left mid back. This was carried out through subcutaneous tissue and around the cyst wa ll. The lesion was passed off the table and sent to pathology for further examination. Dermis was then reapproximated using interrupted 3-0 Polysorb sutures. Skin was closed using interrupted 3-0 nylon sutures. Attention was then directed to lesion in the left shoulder were similar procedure was performed with an elliptical incision created in a transverse fashion carried out through subcutaneous tissue and around the cyst wall. Lesion was passed off the table and sent to pathology for further examination. Dermis was reapproximated using interrupted 3-0 Polysorb sutures and skin closed with 3-0 nylon sutures. A left upper shoulder lesion was then excised using elliptical incision oriented transversely. This was then carried down through subcutaneous tissue and around the cyst wall. Dermis was then reapproximated using interrupted 3-0 Polysorb sutures and skin closed using interrupted 3-0 nylon. A lesion located in the mid neck was then excised in a similar fashion using ellip tical incision oriented transversely carried out through subcutaneous tissue and around the cyst wall. The lesion was passed off the table and sent to pathology for further examination. Dermis was then reapproximated using interrupted 3-0 Polysorb sutures and skin closed using interrupted 3-0 nylon sutures. Two lesions were noted in the posterior right buttock. Both were excised in a similar fashion using an elliptical incision around both lesions carried out through subcutaneous tissue and around the cyst wall. Dermis was then reapproximated using interrupted 3-0 Polysorb sutures and skin closed using interrupted 3-0 nylon sutures. Sterile dressings consisting of 2 x 2 gauze and Tegaderm were then applied to all dressings except the buttock lesion which was dressed with a gauze dressing and paper tape. The patient tolerated the procedure well. Sponge, instrument, needle counts reported as correct. The patient was transferred to PACU in stable condition.
== END 2022-07-28 14:10 | disposition home or self-care (01) ==
PROVIDERS: PCP Student in an Organized Health Care Education/Training Program; Visit Provider Surgery
PROC: (CPT 11400; principal; 2022-07-28 10:20)
DX: L72.3 Sebaceous cyst (principal); L02.91 Cutaneous abscess, unspecified
CPT/HCPCS: 11400; 11420; 11401 ×4; 82947; 88304; J1100; J1170; J2405; J2795; J3010; J3370

== ENCOUNTER 2022-07-29 23:29 | Emergency (ER) | payer MEDICAID, SELFPAY ==
[2022-07-29 23:36] VITALS: BP 158/77; PULSE 79; RESP 16; TEMP 36.4; O2SAT 96; BMI 27.3
--- NOTE | 2022-07-30 00:45 | ED_ITS ---
HPI - Ear Problem General Chief complaint: Ear Problems Stated complaint: earache Time Seen by Provider: 07/30/22 00:45 Source: patient Mode of arrival: ambulatory Limitations: no limitations History of Present Illness HPI Narrative: This is a 61-year-old female presenting to the emergency department complaints of bilateral ear pain x2 days. Patient also complaining of associated chills, fatigue, malaise. Patient tells me bilateral ears feel full, and painful. Tells me she thinks she has infection. Denies chest pain, shortness of breath, sore throat, nausea, vomiting, abdominal pain, headache, vision changes, dizziness, weakness. No known sick contacts Related Data Home Medications Medication Instructions Recorded Confirmed hydrochlorothiazide 12.5 mg capsule 12.5 mg PO DAILY 05/09/20 07/22/22 hydroxyzine HCl 25 mg tablet 50 mg PO BEDTIME 06/04/20 07/22/22 pramipexole 0.25 mg tablet 1 tab DAILY 10/20/21 07/22/22 sertraline 100 mg tablet 1 tab PO BEDTIME 10/20/21 07/22/22 tizanidine 4 mg tablet 1 tab PO BEDTIME 10/20/21 07/22/22 ferrous sulfate 325 mg (65 mg 325 mg PO DAILY 06/01/22 07/22/22 iron) tablet,delayed release cyanocobalamin (vitamin B-12) 1,000 mcg PO QAM 06/03/22 07/22/22 1,000 mcg tablet cyclobenzaprine 5 mg tablet 5 mg PO BEDTIME PRN muscle spasm 06/03/22 07/22/22 metformin 500 mg tablet,extended 500 mg PO BID 06/03/22 07/22/22 release 24 hr sucralfate 100 mg/mL oral 10 ml PO BID 06/17/22 07/22/22 suspension Previous Rx's Medication Instructions Recorded cholecalciferol (vitamin D3) 50 50 mcg PO DAILY #30 caps 12/15/20 mcg (2,000 unit) capsule acarbose 25 mg tablet 25 mg PO TID 30 days #90 tabs 12/31/20 albuterol sulfate 90 mcg/actuation 2 puff inhalation Q4-6H PRN 06/21/21 aerosol inhaler shortness of breath or wheezing #6.7 grams fluticasone propionate 50 2 spray intranasal DAILY #16 grams 06/21/21 mcg/actuation nasal spray,suspension (Flonase Allergy Relief) blood-glucose meter (FreeStyle #1 ea 08/21/21 Lite Meter kit) lidocaine 5 % topical patch 1 patch topical DAILY PRN pain #15 02/26/22 ea blood sugar diagnostic (FreeStyle #150 strips 03/30/22 Lite Strips) thiamine HCl (vitamin B1) 100 mg 100 mg PO DAILY #90 tabs 06/07/22 tablet pantoprazole 40 mg tablet,delayed 40 mg PO BID #60 tabs 06/17/22 release clindamycin phosphate 1 % topical 1 appl topical BID #60 grams 07/02/22 gel doxycycline hyclate 100 mg capsule 100 mg PO BID 7 days #14 caps 07/02/22 oxycodone 5 mg tablet 5 mg PO Q6H PRN pain (scale score 07/28/22 7-10) #20 tabs ciprofloxacin 0.3 %-dexamethasone 4 drp otic (ears) BID 7 days #7.5 07/30/22 0.1 % ear drops,suspension mL (Ciprodex) doxycycline hyclate 100 mg capsule 100 mg PO BID 10 days #20 caps 07/30/22 Allergies Allergy/AdvReac Type Severity Reaction Status Date / Time Penicillins Allergy Intermediate HIVES Verified 07/13/22 12:55 sulfamethoxazole Allergy Intermediate BLISTERS- Verified 07/13/22 12:55 [From BACTRIM] DELGADO - NERVE ENDINGS IN HAND/ERYTHEMA MULTIFORM trimethoprim [From BACTRIM] Allergy Intermediate BLISTERS- Verified 07/13/22 12:55 DELGADO - NERVE ENDINGS IN HAND/ERYTHEMA MULTIFORM latex [Latex] Allergy Mild RASH Verified 07/13/22 12:55 theophylline AdvReac Intermediate TACHYCARDIA Verified 07/13/22 12:55 TEGADERM Allergy Intermediate SKIN TEARS Uncoded 07/13/22 12:55 From COMPAZINE AdvReac Severe SEIZURES Uncoded 07/13/22 12:55 Review of Systems Review of Systems: Constitutional : No Weight loss, No Fever, No Chills, No Fatigue, No Malaise ENT/Mouth : No sore throat, No Rhinorrhea, + ear pain Eyes: No Eye Pain, No Swelling, No Redness Cardiovascular : No Chest Pain, No SOB, No Dyspnea on Exertion, No Orthopnea, No Edema, No Palpitations Respiratory : No Cough, No Sputum, No Wheezing Gastrointestinal : No Nausea, No Vomiting, No Diarrhea, No Constipation, No abdominal Pain, No Hematochezia, No Melena Genitourinary : No Dysuria, No Urinary Frequency, No Hematuria, Musculoskeletal : No joint pain, No Myalgias, No Joint Swelling Skin : No Skin Lesions, No rash Neuro : No Weakness, No Numbness, No Dizziness, No Headache Psych : No Anxiety/Panic, No Depression All other systems reviewed and are negative Yes all other systems are reviewed and are negative [facility] Past Medical History Attestation statement: The following information was validated with the patient. Source: old records reviewed and nursing notes reviewed Medical History Anastomotic ulcer Anxiety Asthma Borderline diabetes Depression Diabetes type 2, controlled DVT (deep venous thrombosis) Dyslipidemia GERD (gastroesophageal reflux disease) High cholesterol History of restless legs syndrome Non-toxic multinodular goiter Surgical History History of excision of epidermal inclusion cyst (03/23/22) History of excision of mass (10/26/21) History of hysterectomy History of surgery History of surgery on left wrist History of tooth extraction Hx of cholecystectomy Hx of elbow surgery Hx of esophagogastroduodenoscopy Hx of excision of epidermal inclusion cyst (12/25/21) Hx of hand surgery S/P gastric bypass S/P trigger finger release Family History Family History Mother Diabetes mellitus CHF (congestive heart failure) Kidney failure Cervical cancer Brother No problems noted. Brother No problems noted. 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 Oriented X3.? No acute distress.? Head: Normocephalic, atraumatic, no step-offs or deformities Eyes: Pupils equal, round and reactive to light.? Ears: Bilateral tympanic membrane red, bulging, erythematous ear canals bilaterally. Pain with manipulation of external ear bilaterally. No mastoid tenderness. Neck: Normal inspection.? Neck supple.? CVS: Normal heart rate and rhythm.? Pulses normal.? Respiratory: No respiratory distress.? Breath sounds normal.? Abdomen: Soft and nontender.? Skin: Skin warm and dry.? Normal skin color.? Normal skin turgor.? Extremities: No lower extremity edema.? No calf ttp. 5/5 strength to bilateral upper and lower extremities Neuro: Oriented X 3.? No motor deficit.? No sensory deficit. CN 2-12 intact Course Reevaluation(s) Reevaluation #1: Patient given doxycycline tolerated well. Educated patient on diagnosis and treatment plan, answered all question, patient verbalizes understanding. At this time patient will be discharged home, advised to return with new or worsening symptoms. Educated on worrisome signs and symptoms and when to return. At this time I feel comfortable discharge home. Time: 01:07 Medical Decision Making Medical Decision Making [facility] Narrative: 0055 61 year old female presents w/ b/l ear pain X 2 days worsening PE w/ errythematous and bulgging TM b/l and EC w/ errythema . Pain with manipulation of the ears bilaterally. Hx and Pe consistent w/ OM and OE. No signs of necrotizing infection, mastoiditis. Plan at this time is to discharge patient home on doxycycline, patient with penicillin allergy. Will also give Ciprodex drops. Differential Diagnosis Differential Diagnoses: The differential diagnosis associated with the presentat ion includes Hx and Pe consistent w/ OM and OE. No signs of necrotizing infection, mastoiditis. Admission/Observation Consideration of admission/observation: Escalation of care including admission/observation considered Not indicated Core Measures AMI core measures followed: Yes Measure exclusions: not indicated Critical Care Time Critical Care Time Critical Care Time: No Discharge Plan Discharge Clinical Impression: Otitis externa, Otitis media Patient Disposition: Home, Self-Care Instructions: Otitis Externa (ED), How to Use Ear Drops (ED), Ear Infection (ED) Additional Instructions: Take your medications as prescribed. If you were prescribed antibiotics today, it is important that you take your medication to their entirety, do not skip any doses, do not finish them early. Follow-up with your primary care provider this week. Return to the emergency department with new or worsening symptoms. Such as fevers, chills, chest pain, shortness of breath, nausea, vomiting, dizziness, headache, vision changes, lethargy In case of emergency call 911 Prescriptions: New doxycycline hyclate 100 mg capsule 100 mg PO BID 10 Days Qty: 20 0RF ciprofloxacin-dexamethasone [Ciprodex] 0.3-0.1 % drops,suspension 4 drp otic (ears) BID 7 Days Qty: 7.5 0RF No Action cholecalciferol (vitamin D3) 50 mcg (2,000 unit) capsule 50 mcg PO DAILY Qty: 30 11RF (DME) FreeStyle Lite Strips Strip See Rx Instructions .ROUTE .COMPLEX Qty: 150 6RF Dose Instruction: USE TO TEST BLOOD SUGAR TWICE DAILY Rx Instructions: USE TO TEST BLOOD SUGAR TWICE DAILY thiamine HCl (vitamin B1) 100 mg tablet 100 mg PO DAILY Qty: 90 3RF hydroxyzine HCl 25 mg tablet 50 mg PO BEDTIME sertraline 100 mg tablet 1 tab PO BEDTIME pramipexole 0.25 mg tablet 1 tab DAILY tizanidine 4 mg tablet 1 tab PO BEDTIME albuterol sulfate 90 mcg/actuation HFA aerosol inhaler 2 puff inhalation Q4-6H PRN (Reason: shortness of breath or wheezing) Qty: 6.7 0RF fluticasone propionate [Flonase Allergy Relief] 50 mcg/actuation spray,suspension 2 spray intranasal DAILY Qty: 16 0RF Rx Instructions: administer into each nostril lidocaine 5 % adhesive patch,medicated 1 patch topical DAILY PRN (Reason: pain) Qty: 15 0RF Rx Instructions: leave on most painful area for up to 12 hrs metformin 500 mg tablet extended release 24 hr 500 mg PO BID cyclobenzaprine 5 mg tablet 5 mg PO BEDTIME PRN (Reason: muscle spasm) clindamycin phosphate 1 % gel 1 appl topical BID Qty: 60 0RF Rx Instructions: Apply 2 times a day to skin areas that are subject to recurrent flares. Begin after completing course of by mouth antibiotics doxycycline hyclate 100 mg capsule 100 mg PO BID 7 Days Qty: 14 0RF oxycodone 5 mg tablet 5 mg PO Q6H PRN (Reason: pain (scale score 7-10)) Qty: 20 0RF Rx Instructions: Partial Fill upon patient request. acarbose 25 mg tablet 25 mg PO TID 30 Days Qty: 90 4RF hydrochlorothiazide 12.5 mg capsule 12.5 mg PO DAILY ferrous sulfate 325 mg (65 mg iron) tablet,delayed release (DR/EC) 325 mg PO DAILY sucralfate 100 mg/mL suspension 10 ml PO BID pantoprazole 40 mg tablet,delayed release (DR/EC) 40 mg PO BID Qty: 60 6RF (DME) blood-glucose meter [FreeStyle Lite Meter] Kit See Rx Instructions .Route Qty: 1 0RF Rx Instructions: As directed test blood sugar two times a day cyanocobalamin (vitamin B-12) 1,000 mcg tablet 1,000 mcg PO QAM Referrals: Joyce Tapia MD [Primary Care Provider] - 2 days Stand Alone Forms: Work/School Release
[2022-07-30] MEDS: Doxycycline Monohydrate 100 MG CAPSULE PO (01:03)
== END 2022-07-30 01:09 | disposition home or self-care (01) ==
PROVIDERS: Emergency Provider Emergency Medicine; PCP Student in an Organized Health Care Education/Training Program
DX: H60.93 Unspecified otitis externa, bilateral (principal); H66.93 Otitis media, unspecified, bilateral; E11.9 Type 2 diabetes mellitus without complications; E78.5 Hyperlipidemia, unspecified; Z79.899 Other long term (current) drug therapy; Z79.84 Long term (current) use of oral hypoglycemic drugs; Z86.718 Personal history of other venous thrombosis and embolism; Z87.891 Personal history of nicotine dependence
CPT/HCPCS: 99282; 99283

== ENCOUNTER → 2022-08-06 09:02 | Outpatient (BNVA) | payer MEDICAID, SELFPAY | PROVIDERS: PCP Student in an Organized Health Care Education/Training Program; Visit Provider Surgery | DX: Z13.89 Encounter for screening for other disorder (principal) ==

== ENCOUNTER 2022-08-13 09:29 | Emergency (ER) | payer MEDICAID, SELFPAY ==
--- NOTE | ~2022-08-13 | XR_ITS ---
EXAMINATION: XR CHEST CLINICAL INFORMATION: Short of breath COMPARISON: 06/03/2022 TECHNIQUE: Frontal view of the chest was obtained. FINDINGS: The lungs are well expanded. There is no focal consolidation, edema, or effusion. No pneumothorax. The cardiomediastinal silhouette is within normal limits. No acute osseous abnormality. XR/XR chest 1V IMPRESSION: No acute pulmonary disease.
[2022-08-13 09:43] VITALS: BP 129/66; PULSE 77; RESP 18; TEMP 37.3; O2SAT 97; BMI 27.6
[2022-08-13 10:27] LABS: Hematocrit 39.2 % (37.0-47.0); Hemoglobin 13.2 g/dl (12.0-16.0); Mean Corpuscular HGB Conc 33.7 g/dl (31.0-35.0); Mean Corpuscular Hemoglobin 29.1 pg (27.0-33.0); Mean Corpuscular Volume 86.3 fL (80.0-98.0); Mean Platelet Volume 9.9 fL (9.4-12.3); Platelet Count 192 X10*3/uL (160-400); Red Blood Count 4.54 X10*6/uL (4.20-5.50); Red Cell Distribution Width 12.6 % (11.0-16.0); White Blood Count 8.2 X10*3/uL (4.8-10.8)
[2022-08-13 10:35] LABS: Anion Gap 12 (12-20); Blood Urea Nitrogen 15 mg/dL (9-16); Carbon Dioxide 27 mmol/L (22-29); Chloride 108 mmol/L (96-108); Creatinine Clr Calc Pharmacy 74.1; Estimated Glomerular Filt Rate > 60; Glucose Random 124 mg/dL (60-115); Potassium 3.8 mmol/L (3.3-5.1); Sodium 143 mmol/L (135-145)
[2022-08-13 11:31] LABS: Influenza A PCR NEGATIVE (Negative); Influenza B PCR NEGATIVE (Negative); Resp Syncy Virus RNA Qual PCR NEGATIVE (Negative); SARS COV2 PCR INHOUSE NEGATIVE (Negative)
[2022-08-13] MEDS: Cyclobenzaprine HCl 10 MG TABLET PO (12:00)
[2022-08-13] MEDS: Lidocaine 4 % Patch ADH..PATCH 1 PATCH TRANSDERMA (12:01)
[2022-08-13 12:13] LABS: Alanine Aminotransferase 18 U/L (0-31); Albumin Level 3.7 g/dL (3.5-5.0); Alkaline Phosphatase 76 U/L (39-117); Aspartate Amino Transferase 15 U/L (5-31); Bilirubin Direct < 0.2 mg/dL (0.0-0.5); Bilirubin Total 0.5 mg/dL (0.0-1.0); Total Protein 5.9 g/dL (6.5-8.0)
--- NOTE | 2022-08-13 12:17 | ED.GENADULT ---
HPI - General Adult General Chief complaint: General Medical Stated complaint: ? COVID Time Seen by Provider: 08/13/22 10:55 Source: patient Mode of arrival: ambulatory History of Present Illness HPI narrative: 61-year-old female with a past medical history of anxiety, asthma, diabetes, HLD, GERD, chronic back pain, s/p gastric bypass, presenting to the ED complaining of COVID-19 exposure at work on Tuesday, now with generalized fatigue/ weakness, myalgias, dry cough, SOB, chest discomfort when coughing, and acute on chronic atraumatic back pain. denies fever, abdominal pain, nausea /vomiting, diarrhea, urinary incontinence/ retention, dysuria Onset (ago): day(s) Related Data Home Medications Medication Instructions Recorded Confirmed hydrochlorothiazide 12.5 mg capsule 12.5 mg PO DAILY 05/09/20 07/22/22 hydroxyzine HCl 25 mg tablet 50 mg PO BEDTIME 06/04/20 07/22/22 pramipexole 0.25 mg tablet 1 tab DAILY 10/20/21 07/22/22 sertraline 100 mg tablet 1 tab PO BEDTIME 10/20/21 07/22/22 tizanidine 4 mg tablet 1 tab PO BEDTIME 10/20/21 07/22/22 ferrous sulfate 325 mg (65 mg 325 mg PO DAILY 06/01/22 07/22/22 iron) tablet,delayed release cyanocobalamin (vitamin B-12) 1,000 mcg PO QAM 06/03/22 07/22/22 1,000 mcg tablet cyclobenzaprine 5 mg tablet 5 mg PO BEDTIME PRN muscle spasm 06/03/22 07/22/22 metformin 500 mg tablet,extended 500 mg PO BID 06/03/22 07/22/22 release 24 hr sucralfate 100 mg/mL oral 10 ml PO BID 06/17/22 07/22/22 suspension Previous Rx's Medication Instructions Recorded cholecalciferol (vitamin D3) 50 50 mcg PO DAILY #30 caps 12/15/20 mcg (2,000 unit) capsule acarbose 25 mg tablet 25 mg PO TID 30 days #90 tabs 12/31/20 albuterol sulfate 90 mcg/actuation 2 puff inhalation Q4-6H PRN 06/21/21 aerosol inhaler shortness of breath or wheezing #6.7 grams fluticasone propionate 50 2 spray intranasal DAILY #16 grams 06/21/21 mcg/actuation nasal spray,suspension (Flonase Allergy Relief) blood-glucose meter (FreeStyle #1 ea 08/21/21 Lite Meter kit) lidocaine 5 % topical patch 1 patch topical DAILY PRN pain #15 02/26/22 ea blood sugar diagnostic (FreeStyle #150 strips 03/30/22 Lite Strips) thiamine HCl (vitamin B1) 100 mg 100 mg PO DAILY #90 tabs 06/07/22 tablet pantoprazole 40 mg tablet,delayed 40 mg PO BID #60 tabs 06/17/22 release clindamycin phosphate 1 % topical 1 appl topical BID #60 grams 07/02/22 gel doxycycline hyclate 100 mg capsule 100 mg PO BID 7 days #14 caps 07/02/22 ciprofloxacin 0.3 %-dexamethasone 4 drp otic (ears) BID 7 days #7.5 07/30/22 0.1 % ear drops,suspension mL (Ciprodex) doxycycline hyclate 100 mg capsule 100 mg PO BID 10 days #20 caps 07/30/22 oxycodone 5 mg tablet 5 mg PO Q6H PRN pain (scale score 08/05/22 7-10) #10 tabs Allergies Allergy/AdvReac Type Severity Reaction Status Date / Time Penicillins Allergy Intermediate HIVES Verified 08/06/22 09:21 sulfamethoxazole Allergy Intermediate BLISTERS- Verified 08/06/22 09:21 [From BACTRIM] DELGADO - NERVE ENDINGS IN HAND/ERYTHEMA MULTIFORM trimethoprim [From BACTRIM] Allergy Intermediate BLISTERS- Verified 08/06/22 09:21 DELGADO - NERVE ENDINGS IN HAND/ERYTHEMA MULTIFORM latex [Latex] Allergy Mild RASH Verified 08/06/22 09:21 theophylline AdvReac Intermediate TACHYCARDIA Verified 08/06/22 09:21 TEGADERM Allergy Intermediate SKIN TEARS Uncoded 08/06/22 09:21 From COMPAZINE AdvReac Severe SEIZURES Uncoded 08/06/22 09:21 Review of Systems Review of Systems: Constitutional: No Fever, No Chills, +fatigue, +malaise ENT/Mouth: No Ear Pain, No Nasal Congestion, No Sinus Pain, No Hoarseness, No sore throat, No Rhinorrhea, No Swallowing Difficulty Cardiovascular: +Chest Pain when coughing, +SOB Respiratory: + Cough, No Sputum, No Wheezing Gastrointestinal: No Nausea, No Vomiting, No Diarrhea, No Constipation, No Abdominal pain Genitourinary: No Dysuria, No Urinary Frequency, No Hematuria, No Urinary Incontinence/retention, No Flank Pain Musculoskeletal: No joint pain, +Myalgias, No Joint Swelling Skin: No Skin Lesions, No rash Neuro: +Weakness, No Numbness, No Paresthesias Yes all other systems are reviewed and are negative Constitutional: Constitutional: Reports as per HPI Neurologic: Denies Sensory deficit (Neuro) [facility] Past Medical History Attestation statement: The following information was validated with the patient. Medical History Anastomotic ulcer Anxiety Asthma Borderline diabetes Depression Diabetes type 2, controlled DVT (deep venous thrombosis) Dyslipidemia GERD (gastroesophageal reflux disease) High cholesterol History of restless legs syndrome Non-toxic multinodular goiter Surgical History History of excision of epidermal inclusion cyst (03/23/22) History of excision of mass (10/26/21) History of hysterectomy History of removal of cyst (07/28/22) History of surgery History of surgery on left wrist History of tooth extraction Hx of cholecystectomy Hx of elbow surgery Hx of esophagogastroduodenoscopy Hx of excision of epidermal inclusion cyst (12/25/21) Hx of hand surgery S/P gastric bypass S/P trigger finger release Family History Family History Mother Diabetes mellitus CHF (congestive heart failure) Kidney failure Cervical cancer Brother No problems noted. Brother No problems noted. 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 Physical Exam ED Vital Signs: Vital Signs - 24 hr 02/10/23 09:43 Temperature 99.1 F Pulse Rate 77 Respiratory Rate 18 Blood Pressure 129/66 Pulse Oximetry 97 Oxygen Delivery Method Room Air BMI result Body Mass Index 27.6 Const General: cooperative, healthy appearing and no acute distress Orientation/consciousness: patient oriented x3 Limitations: no limitations HENMT Head: Yes normal to inspection and Yes atraumatic Ears: hearing grossly normal bilaterally General nose exam: Normal external nose present Face and sinus: Yes normal facial exam Eyes General: appearance normal, both eyes and all related structures EOM: EOMs intact bilaterally Neck Neck: Yes normal visual inspection and Yes no meningeal signs Resp Effort & Inspection: normal respiratory effort and no respiratory distress Auscultation: clear to auscultation bilaterally, no crackles, no rales and no rhonchi Cardio Rate: regular rate Heart sounds: S1 normal heart sound present and S2 normal heart sound present GI Inspection: Yes normal to inspection Palpation (GI): Soft to palpation, nontender, no guarding and not rigid General: Yes no CVA tenderness Back/Spine/Pelvis Other: No midline thoracic/lumbar spinous tenderness/step-off or deformity. + right-sided lower lumbar/ buttock MSK tenderness to palpation Back: no CVA tenderness Skin Rashes: no rashes Wounds: no wounds Neuro Other: Strength intact throughout. No saddle anesthesia. Sensation intact to light touch. Neurovascular intact distally General: patient oriented x3, gait normal, tone normal, moves all extremities, no meningeal signs and no focal motor deficits Gait exam (Neuro): Normal gait present Sensory Exam: No Sensory deficit (Neuro) Extrem General: Yes normal to inspection Course Course Course Narrative: - labs reassuring. COVID-19/influenza/ RSV negative. 1234--XR chest 1V IMPRESSION: No acute pulmonary disease. > Results discussed with patient including worrisome signs and symptoms and strict return precautions, and when to return to the emergency department. They verbalized understanding and feel safe for discharge at this time. Medications Administered Discontinued Medications Generic Name Dose Route Start Last Admin Trade Name Freq PRN Reason Stop Dose Admin Cyclobenzaprine HCl 10 mg 08/13/22 11:44 08/13/22 12:00 Cyclobenzaprine Hcl 10 Mg Tablet PO 08/13/22 11:45 10 mg ONCE ONE Administration Lidocaine 1 patch 08/13/22 11:44 08/13/22 12:01 Lidocaine 4 % Patch Adh..Patch TRANSDERMA 08/13/22 11:45 1 patch ONCE ONE Administration Protocol Medical Decision Making Medical Decision Making [facility] Narrative: 61-year-old female with a past medical history of anxiety, asthma, diabetes, HLD, GERD, chronic back pain, s/p gastric bypass, presenting to the ED complaining of COVID-19 exposure at work on Tuesday, now with generalized fatigue/ weakness, myalgias, dry cough, SOB, chest discomfort when coughing, and acute on chronic atraumatic back pain. on exam vital signs stable, NAD, nontoxic appearing, lungs CTA, abdomen soft / nontender, reproducible right-sided back MSK/buttock tenderness, no midline spinous tenderness or red flag symptoms. Concern for viral illness including COVID-19 vs acute on chronic back pain. Lower suspicion for pneumonia, ACS/ PE, cauda equina, cord compression, or epidural abscess. Plan: Labs ordered in triage, CXR, COVID 19/influenza/ RSV testing, pain control Please refer to course for remaining clinical decision making, interpretation of labs/imaging results, and discussions with consultants and/or family members. Differential Diagnosis Differential Diagnoses: The differential diagnosis associated with the presentation includes as above Lab Data [facility] Lab Attestation statement: I reviewed the patient's lab results. 08/13/22 10:13 08/13/22 10:13 Labs: Lab Results 08/13/22 08/13/22 08/13/22 Range/Units 10:13 10:13 10:13 WBC 8.2 (4.8-10.8) X10*3/uL RBC 4.54 (4.20-5.50) X10*6/uL Hgb 13.2 (12.0-16.0) g/dl Hct 39.2 (37.0-47.0) % MCV 86.3 (80.0-98.0) fL MCH 29.1 (27.0-33.0) pg MCHC 33.7 (31.0-35.0) g/dl RDW 12.6 (11.0-16.0) % Plt Count 192 (160-400) X10*3/uL MPV 9.9 (9.4-12.3) fL Absolute Nucleated RBC 0.000 (0.0-0.012) X10*3/uL Nucleated RBC % (auto) 0.0 (0.0-0.2) /100WBC Sodium 143 (135-145) mmol/L Potassium 3.8 (3.3-5.1) mmol/L Chloride 108 (96-108) mmol/L Carbon Dioxide 27 (22-29) mmol/L Anion Gap 12 (12-20) BUN 15 (9-16) mg/dL Creatinine 0.77 (0.5-1.4) mg/dL Estim Creat Clear Calc 74.1 Estimated GFR > 60 Random Glucose 124 H (60-115) mg/dL Calcium 9.0 D (8.4-10.2) mg/dL Magnesium 2.0 (1.6-2.6) mg/dL Total Bilirubin 0.5 (0.0-1.0) mg/dL Direct Bilirubin < 0.2 (0.0-0.5) mg/dL AST 15 (5-31) U/L ALT 18 (0-31) U/L Alkaline Phosphatase 76 (39-117) U/L Total Protein 5.9 L (6.5-8.0) g/dL Albumin 3.7 (3.5-5.0) g/dL Influenza Type A (PCR) NEGATIVE (Negative) Influenza Type B (PCR) NEGATIVE (Negative) RSV RNA Qual (PCR) NEGATIVE (Negative) SARS-CoV-2 RNA (RT-PCR) NEGATIVE (Negative) Radiology Impression Discussion of test interpretation with radiology: I have reviewed the radiologist's reading. External Record Review External record reviewed: Office record, Outpatient record and Prior outpatient labs Prescription Management I considered prescription management with: Pain Medication and Antiviral Chronic Conditions Patient?s care impacted by: Diabetes Discharge Plan Discharge Clinical Impression: Acute viral syndrome, Acute exacerbation of chronic low back pain Patient Disposition: Home, Self-Care Instructions: Viral Syndrome (ED), Chronic Back Pain (DC) Additional Instructions: your blood work was reassuring. She tested negative for COVID-19, the flu, and RSV Your pain is likely musculoskeletal Flexeril is a muscle relaxer, take at night as it makes you drowsy, do not drive, drink alcohol, or operate machinery while taking it Lidoderm patches are numbing patches, apply to painful area In addition take Tylenol at home If symptoms persist or worsen, pain becomes unbearable, you developed urinary retention or incontinence, or weakness return to the ED Prescriptions: No Action cholecalciferol (vitamin D3) 50 mcg (2,000 unit) capsule 50 mcg PO DAILY Qty: 30 11RF (DME) FreeStyle Lite Strips Strip See Rx Instructions .ROUTE .COMPLEX Qty: 150 6RF Dose Instruction: USE TO TEST BLOOD SUGAR TWICE DAILY Rx Instructions: USE TO TEST BLOOD SUGAR TWICE DAILY thiamine HCl (vitamin B1) 100 mg tablet 100 mg PO DAILY Qty: 90 3RF oxycodone 5 mg tablet 5 mg PO Q6H PRN (Reason: pain (scale score 7-10)) Qty: 10 0RF Rx Instructions: Partial Fill upon patient request. hydroxyzine HCl 25 mg tablet 50 mg PO BEDTIME sertraline 100 mg tablet 1 tab PO BEDTIME pramipexole 0.25 mg tablet 1 tab DAILY tizanidine 4 mg tablet 1 tab PO BEDTIME albuterol sulfate 90 mcg/actuation HFA aerosol inhaler 2 puff inhalation Q4-6H PRN (Reason: shortness of breath or wheezing) Qty: 6.7 0RF fluticasone propionate [Flonase Allergy Relief] 50 mcg/actuation spray,suspension 2 spray intranasal DAILY Qty: 16 0RF Rx Instructions: administer into each nostril lidocaine 5 % adhesive patch,medicated 1 patch topical DAILY PRN (Reason: pain) Qty: 15 0RF Rx Instructions: leave on most painful area for up to 12 hrs metformin 500 mg tablet extended release 24 hr 500 mg PO BID cyclobenzaprine 5 mg tablet 5 mg PO BEDTIME PRN (Reason: muscle spasm) clindamycin phosphate 1 % gel 1 appl topical BID Qty: 60 0RF Rx Instructions: Apply 2 times a day to skin areas that are subject to recurrent flares. Begin after completing course of by mouth antibiotics doxycycline hyclate 100 mg capsule 100 mg PO BID 7 Days Qty: 14 0RF doxycycline hyclate 100 mg capsule 100 mg PO BID 10 Days Qty: 20 0RF ciprofloxacin-dexamethasone [Ciprodex] 0.3-0.1 % drops,suspension 4 drp otic (ears) BID 7 Days Qty: 7.5 0RF acarbose 25 mg tablet 25 mg PO TID 30 Days Qty: 90 4RF hydrochlorothiazide 12.5 mg capsule 12.5 mg PO DAILY ferrous sulfate 325 mg (65 mg iron) tablet,delayed release (DR/EC) 325 mg PO DAILY sucralfate 100 mg/mL suspension 10 ml PO BID pantoprazole 40 mg tablet,delayed release (DR/EC) 40 mg PO BID Qty: 60 6RF (DME) blood-glucose meter [FreeStyle Lite Meter] Kit See Rx Instructions .Route Qty: 1 0RF Rx Instructions: As directed test blood sugar two times a day cyanocobalamin (vitamin B-12) 1,000 mcg tablet 1,000 mcg PO QAM Referrals: Joyce Tapia MD [Primary Care Provider] -
== END 2022-08-13 12:51 | disposition home or self-care (01) ==
PROVIDERS: Physician Assistant; Emergency Provider Student in an Organized Health Care Education/Training Program; PCP Student in an Organized Health Care Education/Training Program
DX: B34.9 Viral infection, unspecified (principal); M54.50 Low back pain, unspecified; M79.10 Myalgia, unspecified site; R05.9 Cough, unspecified; R07.89 Other chest pain; Z20.828 Contact with and (suspected) exposure to other viral communicable diseases; Z20.822 Contact with and (suspected) exposure to COVID-19; Z98.84 Bariatric surgery status; Z87.891 Personal history of nicotine dependence
CPT/HCPCS: 0241U; 36415; 71045; 80048; 80076; 83735; 85027; 99283

== ENCOUNTER 2022-08-17 19:37 | Emergency (ER) | payer MEDICAID, SELFPAY ==
[2022-08-17 19:57] VITALS: BP 133/68; PULSE 86; RESP 20; TEMP 36.7; O2SAT 96; BMI 27.6
--- NOTE | 2022-08-17 19:58 | ED.EXTPRO ---
HPI - Extremity Problem General Chief complaint: Extremity Problem <Klaudia Luong CNP - Last Filed: 08/17/22 20:03> Stated complaint: had toe surgery/ gauze embedded <Klaudia Luong CNP - Last Filed: 08/17/22 20:03> Time Seen by Provider: 08/17/22 23:29 <Klaudia Luong CNP - Last Filed: 08/17/22 20:03> Source: patient <Janel Pitts MD - Last Filed: 08/18/22 00:08> Mode of arrival: ambulatory <Janel Pitts MD - Last Filed: 08/18/22 00:08> Limitations: no limitations <Janel Pitts MD - Last Filed: 08/18/22 00:08> History of Present Illness HPI Narrative: Patient comes to emergency room complaining of left great toe pain. Patient states that yesterday she had her toenail removed by podiatry. Patient states that today in the morning there was a lot of blood, change her dressing. This evening, when patient was doing a dressing change, noticed that the gauze was stuck to the skin and patient could not take it off. Patient complaining of severe pain. Patient states that yesterday she was sent home with Tylenol No. 3, but because it did not work, she threw it in the garbage can. <Janel Pitts MD - Last Filed: 08/18/22 00:08> Related Data Home medications: Home Medications Medication Instructions Recorded Confirmed hydrochlorothiazide 12.5 mg capsule 12.5 mg PO DAILY 05/09/20 07/22/22 hydroxyzine HCl 25 mg tablet 50 mg PO BEDTIME 06/04/20 07/22/22 pramipexole 0.25 mg tablet 1 tab DAILY 10/20/21 07/22/22 sertraline 100 mg tablet 1 tab PO BEDTIME 10/20/21 07/22/22 tizanidine 4 mg tablet 1 tab PO BEDTIME 10/20/21 07/22/22 ferrous sulfate 325 mg (65 mg 325 mg PO DAILY 06/01/22 07/22/22 iron) tablet,delayed release cyanocobalamin (vitamin B-12) 1,000 mcg PO QAM 06/03/22 07/22/22 1,000 mcg tablet cyclobenzaprine 5 mg tablet 5 mg PO BEDTIME PRN muscle spasm 06/03/22 07/22/22 metformin 500 mg tablet,extended 500 mg PO BID 06/03/22 07/22/22 release 24 hr sucralfate 100 mg/mL oral 10 ml PO BID 06/17/22 07/22/22 suspension Previous Rx's Medication Instructions Recorded cholecalciferol (vitamin D3) 50 50 mcg PO DAILY #30 caps 12/15/20 mcg (2,000 unit) capsule acarbose 25 mg tablet 25 mg PO TID 30 days #90 tabs 12/31/20 albuterol sulfate 90 mcg/actuation 2 puff inhalation Q4-6H PRN 06/21/21 aerosol inhaler shortness of breath or wheezing #6.7 grams fluticasone propionate 50 2 spray intranasal DAILY #16 grams 06/21/21 mcg/actuation nasal spray,suspension (Flonase Allergy Relief) blood-glucose meter (FreeStyle #1 ea 08/21/21 Lite Meter kit) lidocaine 5 % topical patch 1 patch topical DAILY PRN pain #15 02/26/22 ea blood sugar diagnostic (FreeStyle #150 strips 03/30/22 Lite Strips) thiamine HCl (vitamin B1) 100 mg 100 mg PO DAILY #90 tabs 06/07/22 tablet pantoprazole 40 mg tablet,delayed 40 mg PO BID #60 tabs 06/17/22 release clindamycin phosphate 1 % topical 1 appl topical BID #60 grams 07/02/22 gel doxycycline hyclate 100 mg capsule 100 mg PO BID 7 days #14 caps 07/02/22 ciprofloxacin 0.3 %-dexamethasone 4 drp otic (ears) BID 7 days #7.5 07/30/22 0.1 % ear drops,suspension mL (Ciprodex) doxycycline hyclate 100 mg capsule 100 mg PO BID 10 days #20 caps 07/30/22 oxycodone 5 mg tablet 5 mg PO Q6H PRN pain (scale score 08/05/22 7-10) #10 tabs acetaminophen 500 mg tablet 500 mg PO Q6H PRN fever or pain 08/13/22 (Tylenol Extra Strength) #14 tabs cyclobenzaprine 5 mg tablet 5 mg PO Q8H PRN pain (scale score 08/13/22 7-10) 5 days #14 tabs lidocaine 5 % topical patch 1 patch topical DAILY PRN pain #30 08/13/22 (Lidoderm) ea tramadol 50 mg tablet 50 mg PO BID PRN pain #5 tabs 08/17/22 <Klaudia Luong CNP - Last Filed: 08/17/22 20:03> Allergies/Adverse reactions: Allergies Allergy/AdvReac Type Severity Reaction Status Date / Time Penicillins Allergy Intermediate HIVES Verified 08/17/22 20:02 sulfamethoxazole Allergy Intermediate BLISTERS- Verified 08/17/22 20:02 [From BACTRIM] DELGADO - NERVE ENDINGS IN HAND/ERYTHEMA MULTIFORM trimethoprim [From BACTRIM] Allergy Intermediate BLISTERS- Verified 08/17/22 20:02 DELGADO - NERVE ENDINGS IN HAND/ERYTHEMA MULTIFORM latex [Latex] Allergy Mild RASH Verified 08/17/22 20:02 theophylline AdvReac Intermediate TACHYCARDIA Verified 08/17/22 20:02 TEGADERM Allergy Intermediate SKIN TEARS Uncoded 08/06/22 09:21 From COMPAZINE AdvReac Severe SEIZURES Uncoded 08/06/22 09:21 <Klaudia Luong [facility] - Last Filed: 08/17/22 20:03> Review of Systems Review of Systems: Constitutional : No Weight loss, No Fever, No Chills, No Night Sweats, No Fatigue, No Malaise ENT/Mouth : No Hearing loss, No Ear Pain, No Nasal Congestion, No Sinus Pain, No Hoarseness, No sore throat, No Rhinorrhea, No Swallowing Difficulty Eyes: No Eye Pain, No Swelling, No Redness, No Foreign Body, No Discharge, No Vision Changes Cardiovascular : No Chest Pain, No SOB, No Dyspnea on Exertion, No Orthopnea, No Edema, No Palpitations Respiratory : No Cough, No Sputum, No Wheezing, No Smoke Exposure, No Dyspnea Gastrointestinal : No Nausea, No Vomiting, No Diarrhea, No Constipation, No abdominal Pain, No Hematochezia, No Melena Genitourinary : no irregular bleeding, No Dysuria, No Urinary Frequency, No Hematuria, No Urinary Incontinence, No Urgency, No Flank Pain, No Urinary Flow Changes, No Hesitancy Musculoskeletal : No joint pain, No Myalgias, No Joint Swelling Skin : Complaining pain in her great toe on the left foot status post toenail removal 24 hours plus ago Neuro : No Weakness, No Numbness, No Paresthesias, No Loss of Consciousness, No Dizziness, No Headache Psych : No Anxiety/Panic, No Depression, No SI/HI/AH/VH, No Social Issues, Heme/Lymph: No Bruising, No Bleeding,No Lymphadenopathy Endocrine : No Polyuria, No Polydipsia, No Temperature Intolerance <Janel Pitts MD - Last Filed: 08/18/22 00:08> [facility] Past Medical History Medical History: Medical History Anastomotic ulcer Anxiety Asthma Borderline diabetes Depression Diabetes type 2, controlled DVT (deep venous thrombosis) Dyslipidemia GERD (gastroesophageal reflux disease) High cholesterol History of restless legs syndrome Non-toxic multinodular goiter <Klaudia Luong CNP - Last Filed: 08/17/22 20:03> Surgical History: Surgical History History of excision of epidermal inclusion cyst (03/23/22) History of excision of mass (10/26/21) History of hysterectomy History of removal of cyst (07/28/22) History of surgery History of surgery on left wrist History of tooth extraction Hx of cholecystectomy Hx of elbow surgery Hx of esophagogastroduodenoscopy Hx of excision of epidermal inclusion cyst (12/25/21) Hx of hand surgery S/P gastric bypass S/P trigger finger release <Klaudia Luong CNP - Last Filed: 08/17/22 20:03> Family History Family History: Family History Mother Diabetes mellitus CHF (congestive heart failure) Kidney failure Cervical cancer Brother No problems noted. Brother No problems noted. 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 <Klaudia LuongNILA - Last Filed: 08/17/22 20:03> Physical Exam Vital Signs: Vital Signs: Last Vital Signs Temp 97.9 F 08/17/22 23:16 Pulse 77 08/17/22 23:16 Resp 18 08/17/22 23:16 BP 128/73 08/17/22 23:16 Pulse Ox 97 08/17/22 23:16 O2 Del Method 08/17/22 23:16 BMI result Body Mass Index 27.6 <Klaudia LuongNILA - Last Filed: 08/17/22 20:03> Vital Signs: Last Vital Signs Temp 97.9 F 08/17/22 23:16 Pulse 77 08/17/22 23:16 Resp 18 08/17/22 23:16 BP 128/73 08/17/22 23:16 Pulse Ox 97 08/17/22 23:16 O2 Del Method 08/17/22 23:16 BMI result Body Mass Index 27.6 <Janel Pitts MD - Last Filed: 08/18/22 00:08> Const: Other: Appearance: Alert. Oriented X3. No acute distress. Eyes: Pupils equal, round and reactive to light. ENT: Pharynx normal. Neck: Normal inspection. Neck supple. No lymph nodes noted. No crepitus CVS: Normal heart rate and rhythm. Pulses normal. Normal S1 and S2 Respiratory: No respiratory distress. Breath sounds normal. No Wheezing. No rales Abdomen: Soft and nontender. No rigidity. No distention. Skin: Skin warm and dry. Nailbed on the great toe of the left foot has been surgically removed. There is moderate amount of bleeding. Very tender to touch, no signs of infection, no pus drainage Extremities: No lower extremity edema. No Lacerations. No Rash Neuro: Oriented X 3. No motor deficit. No sensory deficit. Moving all extremities. No slurred speech. CN 2 through 12 grossly intact Psych: calm, cooperative, normal affect <Janel Pitts MD - Last Filed: 08/18/22 00:08> Course Course Course Narrative: This is an RME: Additional HPI, ROS, PE not included below will be deferred to primary provider. Patient is a 61-year-old female with past medical history of anxiety, asthma, diabetes, hyperlipidemia, GERD, chronic back pain, gastric bypass who presents emergency department for evaluation of left great toe pain. She states that yesterday she had toenail removal, and they burned the root , at podiatry office yesterday, due to recurrent ingrown nail with infection, and she is a diabetic. Today she changed the bandage, a lot of bleeding after, she applied more gauze to the site. When she attempted to change it again this evening, she was unable to remove the gauze, stating it is adhered to the skin, and causing severe pain. She states that she did not soak the gauze or get it wet, she was advised not to get the toe wet for 72 hours. Does not have any scheduled follow-up with podiatry. She states that she was given Tylenol with codeine, but this is not help pain therefore she threw it away. She is unwilling to have the gauze removed in triage without prior medication. placed back in waiting room pending bed availability <Klaudia Luong CNP - Last Filed: 08/17/22 20:03> Medications Administered Discontinued Medications Generic Name Dose Route Start Last Admin Trade Name Freq PRN Reason Stop Dose Admin Tranexamic Acid 1,000 mg/ 60 mls @ 360 mls/hr 08/17/22 23:36 08/17/22 23:44 Sodium Chloride IV 08/17/22 23:45 360 mls/hr ONCE ONE Administration Lidocaine HCl 1 appl 08/17/22 23:36 08/17/22 23:44 Lidocaine 4 % Cream Kit TOPICAL 08/17/22 23:37 1 appl ONCE ONE Administration Protocol Oxycodone HCl 5 mg 08/17/22 23:37 08/17/22 23:43 Oxycodone Hcl Immed Release 5 Mg Tablet PO 08/17/22 23:38 5 mg ONCE ONE Administration <Klaudia Luong CNP - Last Filed: 08/17/22 20:03> Medications Administered Discontinued Medications Generic Name Dose Route Start Last Admin Trade Name Freq PRN Reason Stop Dose Admin Tranexamic Acid 1,000 mg/ 60 mls @ 360 mls/hr 08/17/22 23:36 08/17/22 23:44 Sodium Chloride IV 08/17/22 23:45 360 mls/hr ONCE ONE Administration Lidocaine HCl 1 appl 08/17/22 23:36 08/17/22 23:44 Lidocaine 4 % Cream Kit TOPICAL 08/17/22 23:37 1 appl ONCE ONE Administration Protocol Oxycodone HCl 5 mg 08/17/22 23:37 08/17/22 23:43 Oxycodone Hcl Immed Release 5 Mg Tablet PO 08/17/22 23:38 5 mg ONCE ONE Administration <Janel Pitts MD - Last Filed: 08/18/22 00:08> Medical Decision Making Medical Decision Making MDM Narrative: -dressing was removed, cleaned -patient cannot tolerate any pressure to control pain. Bleeding was stopped with TXA topical and for comfort, 4% lidocaine was applied. Patient was given 1 dose of p.o. oxycodone. <Janel Pitts MD - Last Filed: 08/18/22 00:08> Discharge Plan Discharge Clinical Impression: Bleeding from wound <Klaudia Luong CNP - Last Filed: 08/17/22 20:03> Patient Disposition: Home, Self-Care <Klaudia Luong CNP - Last Filed: 08/17/22 20:03> Instructions: Nail Removal (ED) <Klaudia Luong CNP - Last Filed: 08/17/22 20:03> Additional Instructions: Please follow-up with your primary care physician tomorrow. If you have any worsening or new symptoms, please return to the emergency room or call 911 <Klaudia Luong CNP - Last Filed: 08/17/22 20:03> Prescriptions: New tramadol 50 mg tablet 50 mg PO BID PRN (Reason: pain) Qty: 5 0RF No Action cholecalciferol (vitamin D3) 50 mcg (2,000 unit) capsule 50 mcg PO DAILY Qty: 30 11RF (DME) FreeStyle Lite Strips Strip See Rx Instructions .ROUTE .COMPLEX Qty: 150 6RF Dose Instruction: USE TO TEST BLOOD SUGAR TWICE DAILY Rx Instructions: USE TO TEST BLOOD SUGAR TWICE DAILY thiamine HCl (vitamin B1) 100 mg tablet 100 mg PO DAILY Qty: 90 3RF oxycodone 5 mg tablet 5 mg PO Q6H PRN (Reason: pain (scale score 7-10)) Qty: 10 0RF Rx Instructions: Partial Fill upon patient request. hydroxyzine HCl 25 mg tablet 50 mg PO BEDTIME sertraline 100 mg tablet 1 tab PO BEDTIME pramipexole 0.25 mg tablet 1 tab DAILY tizanidine 4 mg tablet 1 tab PO BEDTIME acetaminophen [Tylenol Extra Strength] 500 mg tablet 500 mg PO Q6H PRN (Reason: fever or pain) Qty: 14 0RF lidocaine [Lidoderm] 5 % adhesive patch,medicated 1 patch topical DAILY MDD remove after 12 hours PRN (Reason: pain) Qty: 30 0RF Rx Instructions: leave on most painful area for up to 12 hrs cyclobenzaprine 5 mg tablet 5 mg PO Q8H PRN (Reason: pain (scale score 7-10)) 5 Days Qty: 14 0RF albuterol sulfate 90 mcg/actuation HFA aerosol inhaler 2 puff inhalation Q4-6H PRN (Reason: shortness of breath or wheezing) Qty: 6.7 0RF fluticasone propionate [Flonase Allergy Relief] 50 mcg/actuation spray,suspension 2 spray intranasal DAILY Qty: 16 0RF Rx Instructions: administer into each nostril lidocaine 5 % adhesive patch,medicated 1 patch topical DAILY PRN (Reason: pain) Qty: 15 0RF Rx Instructions: leave on most painful area for up to 12 hrs metformin 500 mg tablet extended release 24 hr 500 mg PO BID cyclobenzaprine 5 mg tablet 5 mg PO BEDTIME PRN (Reason: muscle spasm) clindamycin phosphate 1 % gel 1 appl topical BID Qty: 60 0RF Rx Instructions: Apply 2 times a day to skin areas that are subject to recurrent flares. Begin after completing course of by mouth antibiotics doxycycline hyclate 100 mg capsule 100 mg PO BID 7 Days Qty: 14 0RF doxycycline hyclate 100 mg capsule 100 mg PO BID 10 Days Qty: 20 0RF ciprofloxacin-dexamethasone [Ciprodex] 0.3-0.1 % drops,suspension 4 drp otic (ears) BID 7 Days Qty: 7.5 0RF acarbose 25 mg tablet 25 mg PO TID 30 Days Qty: 90 4RF hydrochlorothiazide 12.5 mg capsule 12.5 mg PO DAILY ferrous sulfate 325 mg (65 mg iron) tablet,delayed release (DR/EC) 325 mg PO DAILY sucralfate 100 mg/mL suspension 10 ml PO BID pantoprazole 40 mg tablet,delayed release (DR/EC) 40 mg PO BID Qty: 60 6RF (DME) blood-glucose meter [FreeStyle Lite Meter] Kit See Rx Instructions .Route Qty: 1 0RF Rx Instructions: As directed test blood sugar two times a day cyanocobalamin (vitamin B-12) 1,000 mcg tablet 1,000 mcg PO QAM <Klaudia Luong, NILA - Last Filed: 08/17/22 20:03>
[2022-08-17 23:16] VITALS: BP 128/73; PULSE 77; RESP 18; TEMP 36.6; O2SAT 97
[2022-08-17] MEDS: oxyCODONE HCl Immed Release 5 MG TABLET PO (23:43)
[2022-08-17] MEDS: Tranexamic Acid 1,000 MG in 0.9 % Sodium Chloride 50 ML 360 MG IV (23:44)
[2022-08-17] MEDS: Lidocaine 4 % Cream KIT 1 APPL TOPICAL (23:44)
== END 2022-08-18 02:48 | disposition home or self-care (01) ==
PROVIDERS: Emergency Provider Emergency Medicine; PCP Student in an Organized Health Care Education/Training Program
DX: M79.675 Pain in left toe(s) (principal); Z87.891 Personal history of nicotine dependence; Z79.899 Other long term (current) drug therapy
CPT/HCPCS: 99283; 99284

== ENCOUNTER 2022-08-22 01:48 | Emergency (ER) | payer MEDICAID, SELFPAY ==
[2022-08-22 02:03] VITALS: BP 132/76; PULSE 103; RESP 22; TEMP 36.5; O2SAT 97; BMI 27.6
--- NOTE | 2022-08-22 04:33 | ED.EXTPRO ---
HPI - Extremity Problem General Chief complaint: Extremity Problem Stated complaint: toenail infection Time Seen by Provider: 08/22/22 04:32 Source: patient Mode of arrival: ambulatory Limitations: no limitations History of Present Illness HPI Narrative: Patient diabetic status post left greater toe nail removed on 08/16 by investigator utility bill complaints comes here as she noticed increased pain with yellow discharge since yesterday no fever no chills Related Data Home Medications Medication Instructions Recorded Confirmed hydrochlorothiazide 12.5 mg capsule 12.5 mg PO DAILY 05/09/20 07/22/22 hydroxyzine HCl 25 mg tablet 50 mg PO BEDTIME 06/04/20 07/22/22 pramipexole 0.25 mg tablet 1 tab DAILY 10/20/21 07/22/22 sertraline 100 mg tablet 1 tab PO BEDTIME 10/20/21 07/22/22 tizanidine 4 mg tablet 1 tab PO BEDTIME 10/20/21 07/22/22 ferrous sulfate 325 mg (65 mg 325 mg PO DAILY 06/01/22 07/22/22 iron) tablet,delayed release cyanocobalamin (vitamin B-12) 1,000 mcg PO QAM 06/03/22 07/22/22 1,000 mcg tablet cyclobenzaprine 5 mg tablet 5 mg PO BEDTIME PRN muscle spasm 06/03/22 07/22/22 metformin 500 mg tablet,extended 500 mg PO BID 06/03/22 07/22/22 release 24 hr sucralfate 100 mg/mL oral 10 ml PO BID 06/17/22 07/22/22 suspension Previous Rx's Medication Instructions Recorded cholecalciferol (vitamin D3) 50 50 mcg PO DAILY #30 caps 12/15/20 mcg (2,000 unit) capsule acarbose 25 mg tablet 25 mg PO TID 30 days #90 tabs 12/31/20 albuterol sulfate 90 mcg/actuation 2 puff inhalation Q4-6H PRN 06/21/21 aerosol inhaler shortness of breath or wheezing #6.7 grams fluticasone propionate 50 2 spray intranasal DAILY #16 grams 06/21/21 mcg/actuation nasal spray,suspension (Flonase Allergy Relief) blood-glucose meter (FreeStyle #1 ea 08/21/21 Lite Meter kit) lidocaine 5 % topical patch 1 patch topical DAILY PRN pain #15 02/26/22 ea blood sugar diagnostic (FreeStyle #150 strips 03/30/22 Lite Strips) thiamine HCl (vitamin B1) 100 mg 100 mg PO DAILY #90 tabs 06/07/22 tablet pantoprazole 40 mg tablet,delayed 40 mg PO BID #60 tabs 06/17/22 release clindamycin phosphate 1 % topical 1 appl topical BID #60 grams 07/02/22 gel doxycycline hyclate 100 mg capsule 100 mg PO BID 7 days #14 caps 07/02/22 ciprofloxacin 0.3 %-dexamethasone 4 drp otic (ears) BID 7 days #7.5 07/30/22 0.1 % ear drops,suspension mL (Ciprodex) doxycycline hyclate 100 mg capsule 100 mg PO BID 10 days #20 caps 07/30/22 oxycodone 5 mg tablet 5 mg PO Q6H PRN pain (scale score 08/05/22 7-10) #10 tabs acetaminophen 500 mg tablet 500 mg PO Q6H PRN fever or pain 08/13/22 (Tylenol Extra Strength) #14 tabs cyclobenzaprine 5 mg tablet 5 mg PO Q8H PRN pain (scale score 08/13/22 7-10) 5 days #14 tabs lidocaine 5 % topical patch 1 patch topical DAILY PRN pain #30 08/13/22 (Lidoderm) ea tramadol 50 mg tablet 50 mg PO BID PRN pain #5 tabs 08/17/22 cephalexin 500 mg capsule 500 mg PO QID 10 days #28 caps 08/22/22 doxycycline hyclate 100 mg tablet 100 mg PO BID #14 tabs 08/22/22 tramadol 50 mg tablet 50 mg PO Q6H PRN pain #20 tabs 08/22/22 Allergies Allergy/AdvReac Type Severity Reaction Status Date / Time Penicillins Allergy Intermediate HIVES Verified 08/22/22 02:15 sulfamethoxazole Allergy Intermediate BLISTERS- Verified 08/22/22 02:15 [From BACTRIM] DELGADO - NERVE ENDINGS IN HAND/ERYTHEMA MULTIFORM trimethoprim [From BACTRIM] Allergy Intermediate BLISTERS- Verified 08/22/22 02:15 DELGADO - NERVE ENDINGS IN HAND/ERYTHEMA MULTIFORM latex [Latex] Allergy Mild RASH Verified 08/22/22 02:15 theophylline AdvReac Intermediate TACHYCARDIA Verified 08/22/22 02:15 TEGADERM Allergy Intermediate SKIN TEARS Uncoded 08/06/22 09:21 From COMPAZINE AdvReac Severe SEIZURES Uncoded 08/06/22 09:21 Review of Systems Review of Systems: Yes all other systems are reviewed and are negative [facility] Past Medical History Medical History Anastomotic ulcer Anxiety Asthma Borderline diabetes Depression Diabetes type 2, controlled DVT (deep venous thrombosis) Dyslipidemia GERD (gastroesophageal reflux disease) High cholesterol History of restless legs syndrome Non-toxic multinodular goiter Surgical History History of excision of epidermal inclusion cyst (03/23/22) History of excision of mass (10/26/21) History of hysterectomy History of removal of cyst (07/28/22) History of surgery History of surgery on left wrist History of tooth extraction Hx of cholecystectomy Hx of elbow surgery Hx of esophagogastroduodenoscopy Hx of excision of epidermal inclusion cyst (12/25/21) Hx of hand surgery S/P gastric bypass S/P trigger finger release Family History Family History Mother Diabetes mellitus CHF (congestive heart failure) Kidney failure Cervical cancer Brother No problems noted. Brother No problems noted. 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 Healing nail base with no significant discharge tender to touch slight soft tissue swelling at the base Medications Administered Discontinued Medications Generic Name Dose Route Start Last Admin Trade Name Freq PRN Reason Stop Dose Admin Cephalexin HCl 500 mg 08/22/22 04:39 08/22/22 04:50 Cephalexin 500 Mg Capsule PO 08/22/22 04:40 500 mg ONCE ONE Administration Doxycycline Monohydrate 100 mg 08/22/22 04:39 08/22/22 04:51 Doxycycline Monohydrate 100 Mg Capsule PO 08/22/22 04:40 100 mg ONCE ONE Administration Tramadol HCl 50 mg 08/22/22 04:40 08/22/22 04:49 Tramadol Hcl 50 Mg Tablet PO 08/22/22 04:41 50 mg ONCE ONE Administration Medical Decision Making Medical Decision Making MDM Narrative: Patient with status post left care of toenail removed by investigator utility bill complaints comes here for increased pain and claims that she had low-grade fever yesterday and the yellowish discharge on exam there was no discharge seen but she is sensitive to touch POC per patient was 100 will start patient home on doxy and half Discharge Plan Discharge Clinical Impression: Ingrowing toenail of left foot Patient Disposition: Home, Self-Care Instructions: Nail Removal (ED) Additional Instructions: Take antibiotic as prescribed for possible infection Pain medicines as prescribed Follow-up with your investigator utility bill complaints Prescriptions: New tramadol 50 mg tablet 50 mg PO Q6H PRN (Reason: pain) Qty: 20 0RF cephalexin 500 mg capsule 500 mg PO QID 10 Days Qty: 28 0RF doxycycline hyclate 100 mg tablet 100 mg PO BID Qty: 14 0RF No Action cholecalciferol (vitamin D3) 50 mcg (2,000 unit) capsule 50 mcg PO DAILY Qty: 30 11RF (DME) FreeStyle Lite Strips Strip See Rx Instructions .ROUTE .COMPLEX Qty: 150 6RF Dose Instruction: USE TO TEST BLOOD SUGAR TWICE DAILY Rx Instructions: USE TO TEST BLOOD SUGAR TWICE DAILY thiamine HCl (vitamin B1) 100 mg tablet 100 mg PO DAILY Qty: 90 3RF oxycodone 5 mg tablet 5 mg PO Q6H PRN (Reason: pain (scale score 7-10)) Qty: 10 0RF Rx Instructions: Partial Fill upon patient request. hydroxyzine HCl 25 mg tablet 50 mg PO BEDTIME sertraline 100 mg tablet 1 tab PO BEDTIME pramipexole 0.25 mg tablet 1 tab DAILY tizanidine 4 mg tablet 1 tab PO BEDTIME acetaminophen [Tylenol Extra Strength] 500 mg tablet 500 mg PO Q6H PRN (Reason: fever or pain) Qty: 14 0RF lidocaine [Lidoderm] 5 % adhesive patch,medicated 1 patch topical DAILY MDD remove after 12 hours PRN (Reason: pain) Qty: 30 0RF Rx Instructions: leave on most painful area for up to 12 hrs cyclobenzaprine 5 mg tablet 5 mg PO Q8H PRN (Reason: pain (scale score 7-10)) 5 Days Qty: 14 0RF tramadol 50 mg tablet 50 mg PO BID PRN (Reason: pain) Qty: 5 0RF albuterol sulfate 90 mcg/actuation HFA aerosol inhaler 2 puff inhalation Q4-6H PRN (Reason: shortness of breath or wheezing) Qty: 6.7 0RF fluticasone propionate [Flonase Allergy Relief] 50 mcg/actuation spray,suspension 2 spray intranasal DAILY Qty: 16 0RF Rx Instructions: administer into each nostril lidocaine 5 % adhesive patch,medicated 1 patch topical DAILY PRN (Reason: pain) Qty: 15 0RF Rx Instructions: leave on most painful area for up to 12 hrs metformin 500 mg tablet extended release 24 hr 500 mg PO BID cyclobenzaprine 5 mg tablet 5 mg PO BEDTIME PRN (Reason: muscle spasm) clindamycin phosphate 1 % gel 1 appl topical BID Qty: 60 0RF Rx Instructions: Apply 2 times a day to skin areas that are subject to recurrent flares. Begin after completing course of by mouth antibiotics doxycycline hyclate 100 mg capsule 100 mg PO BID 7 Days Qty: 14 0RF doxycycline hyclate 100 mg capsule 100 mg PO BID 10 Days Qty: 20 0RF ciprofloxacin-dexamethasone [Ciprodex] 0.3-0.1 % drops,suspension 4 drp otic (ears) BID 7 Days Qty: 7.5 0RF acarbose 25 mg tablet 25 mg PO TID 30 Days Qty: 90 4RF hydrochlorothiazide 12.5 mg capsule 12.5 mg PO DAILY ferrous sulfate 325 mg (65 mg iron) tablet,delayed release (DR/EC) 325 mg PO DAILY sucralfate 100 mg/mL suspension 10 ml PO BID pantoprazole 40 mg tablet,delayed release (DR/EC) 40 mg PO BID Qty: 60 6RF (DME) blood-glucose meter [FreeStyle Lite Meter] Kit See Rx Instructions .Route Qty: 1 0RF Rx Instructions: As directed test blood sugar two times a day cyanocobalamin (vitamin B-12) 1,000 mcg tablet 1,000 mcg PO QAM Interventions: ED Discharge Assessment Last Done: 08/22/22 04:57 Discharge Date/Time: 08/22/22 04:59
[2022-08-22] MEDS: traMADoL HCL 50 MG TABLET PO (04:49)
[2022-08-22] MEDS: cephALEXin 500 MG CAPSULE PO (04:50)
[2022-08-22] MEDS: Doxycycline Monohydrate 100 MG CAPSULE PO (04:51)
--- NOTE | 2022-08-22 04:59 | PC.NURSE ---
pt cms to the left big toe and foot, wnl, foot same temp as other foot. no bleeding and ready for discharge.
== END 2022-08-22 04:59 | disposition home or self-care (01) ==
PROVIDERS: Emergency Provider Internal Medicine; PCP Student in an Organized Health Care Education/Training Program
DX: L60.0 Ingrowing nail (principal); Z87.891 Personal history of nicotine dependence
CPT/HCPCS: 99283

== ENCOUNTER 2022-08-24 15:43 | Emergency (ER) | payer MEDICAID, SELFPAY ==
--- NOTE | ~2022-08-24 | XR_ITS ---
EXAMINATION: XR FOOT, LEFT CLINICAL INFORMATION: Pain status post nail removal. COMPARISON: None TECHNIQUE: AP, lateral, and oblique views of the left foot. FINDINGS: No acute fracture or dislocation. Small marginal osteophytes along the first metatarsophalangeal joint. Large plantar calcaneal enthesophyte. Tiny Achilles insertional enthesophyte. Soft tissue swelling about the forefoot. No radiopaque foreign bodies.. XR/XR foot LT min 3V IMPRESSION: * No acute fracture or dislocation. * No acute osseous abnormalities. * Soft tissue swelling about the forefoot.
[2022-08-24 15:47] VITALS: BP 154/93; PULSE 96; RESP 18; TEMP 36.1; O2SAT 95; BMI 27.6
--- NOTE | 2022-08-24 15:47 | ED.LOWEXIN ---
HPI - Extremity Injury (Lower) General Chief Complaint: Recheck/Abnormal Lab/Rx Stated Complaint: L foot swelling Time Seen by Provider: 08/24/22 18:31 Source: patient Mode of arrival: ambulatory History of Present Illness HPI Narrative: 61-year-old female with a past medical history of diabetes, asthma, anxiety, depression, HLD, GERD, presenting to the ED complaining of increasing pain and swelling to left great toe s/p nail removal by investor relations coordinator on 08/16. Patient has been seen and treated in our ED for similar symptoms on 08/17 and 08/22, started on Doxycycline and Keflex and given 2 prescriptions for tramadol without relief. Reports compliance with antibiotics. Reports discharge from area improving. Denies fever/chills, known injury/trauma or fall, calf pain, SOB MD complaint: other Related Data Home Medications Medication Instructions Recorded Confirmed hydrochlorothiazide 12.5 mg capsule 12.5 mg PO DAILY 05/09/20 09/07/22 hydroxyzine HCl 25 mg tablet 50 mg PO BEDTIME 06/04/20 09/07/22 pramipexole 0.25 mg tablet 1 tab DAILY 10/20/21 09/07/22 sertraline 100 mg tablet 1 tab PO BEDTIME 10/20/21 09/07/22 tizanidine 4 mg tablet 1 tab PO BEDTIME 10/20/21 09/07/22 ferrous sulfate 325 mg (65 mg 325 mg PO DAILY 06/01/22 09/07/22 iron) tablet,delayed release cyanocobalamin (vitamin B-12) 1,000 mcg PO QAM 06/03/22 09/07/22 1,000 mcg tablet metformin 500 mg tablet,extended 500 mg PO BID 06/03/22 09/07/22 release 24 hr sucralfate 100 mg/mL oral 10 ml PO BID 06/17/22 09/07/22 suspension Previous Rx's Medication Instructions Recorded cholecalciferol (vitamin D3) 50 50 mcg PO DAILY #30 caps 12/15/20 mcg (2,000 unit) capsule acarbose 25 mg tablet 25 mg PO TID 30 days #90 tabs 12/31/20 albuterol sulfate 90 mcg/actuation 2 puff inhalation Q4-6H PRN 06/21/21 aerosol inhaler shortness of breath or wheezing #6.7 grams fluticasone propionate 50 2 spray intranasal DAILY #16 grams 06/21/21 mcg/actuation nasal spray,suspension (Flonase Allergy Relief) blood-glucose meter (FreeStyle #1 ea 08/21/21 Lite Meter kit) lidocaine 5 % topical patch 1 patch topical DAILY PRN pain #15 02/26/22 ea blood sugar diagnostic (FreeStyle #150 strips 03/30/22 Lite Strips) thiamine HCl (vitamin B1) 100 mg 100 mg PO DAILY #90 tabs 06/07/22 tablet pantoprazole 40 mg tablet,delayed 40 mg PO BID #60 tabs 06/17/22 release clindamycin phosphate 1 % topical 1 appl topical BID #60 grams 07/02/22 gel ciprofloxacin 0.3 %-dexamethasone 4 drp otic (ears) BID 7 days #7.5 07/30/22 0.1 % ear drops,suspension mL (Ciprodex) acetaminophen 500 mg tablet 500 mg PO Q6H PRN fever or pain 08/13/22 (Tylenol Extra Strength) #14 tabs cyclobenzaprine 5 mg tablet 5 mg PO Q8H PRN pain (scale score 08/13/22 7-10) 5 days #14 tabs lidocaine 5 % topical patch 1 patch topical DAILY PRN pain #30 08/13/22 (Lidoderm) ea levofloxacin 500 mg tablet 500 mg PO DAILY 10 days #10 tabs 09/07/22 mupirocin calcium 2 % topical cream 1 appl topical BID #15 grams 09/07/22 oxycodone 5 mg tablet 5 mg PO BID PRN pain #10 tabs 09/07/22 Allergies Allergy/AdvReac Type Severity Reaction Status Date / Time Penicillins Allergy Intermediate HIVES Verified 09/07/22 13:34 sulfamethoxazole Allergy Intermediate BLISTERS- Verified 09/07/22 13:34 [From BACTRIM] DELGADO - NERVE ENDINGS IN HAND/ERYTHEMA MULTIFORM trimethoprim [From BACTRIM] Allergy Intermediate BLISTERS- Verified 09/07/22 13:34 DELGADO - NERVE ENDINGS IN HAND/ERYTHEMA MULTIFORM latex [Latex] Allergy Mild RASH Verified 09/07/22 13:34 theophylline AdvReac Intermediate TACHYCARDIA Verified 09/07/22 13:34 TEGADERM Allergy Intermediate SKIN TEARS Uncoded 09/07/22 13:34 From COMPAZINE AdvReac Severe SEIZURES Uncoded 09/07/22 13:34 Review of Systems Review of Systems: Constitutional: No Fever, No Chills ENT/Mouth: No Ear Pain, No Nasal Congestion, No sore throat, No Rhinorrhea, No Swallowing Difficulty Cardiovascular: No Chest Pain, No SOB Respiratory: No Cough, No Sputum, No Wheezing Gastrointestinal: No Nausea, No Vomiting, No Diarrhea, No Constipation, No Abdominal pain Genitourinary: No Dysuria, No Urinary Frequency, No Flank Pain Musculoskeletal: +joint pain, No Myalgias, + Joint Swelling Skin: + Skin Lesions, No rash Neuro: No Weakness, No Numbness, No Paresthesias Yes all other systems are reviewed and are negative Constitutional: Constitutional: Reports as per [facility] Past Medical History Attestation statement: The following information was validated with the patient. Medical History Anastomotic ulcer Anxiety Asthma Borderline diabetes Depression Diabetes type 2, controlled DVT (deep venous thrombosis) Dyslipidemia GERD (gastroesophageal reflux disease) High cholesterol History of restless legs syndrome Non-toxic multinodular goiter Surgical History History of excision of epidermal inclusion cyst (03/23/22) History of excision of mass (10/26/21) History of hysterectomy History of removal of cyst (07/28/22) History of surgery History of surgery on left wrist History of tooth extraction Hx of cholecystectomy Hx of elbow surgery Hx of esophagogastroduodenoscopy Hx of excision of epidermal inclusion cyst (12/25/21) Hx of hand surgery S/P gastric bypass S/P trigger finger release Family History Family History Mother Diabetes mellitus CHF (congestive heart failure) Kidney failure Cervical cancer Brother No problems noted. Brother No problems noted. 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 Physical Exam Vital Signs: Vital Signs: Last Vital Signs Temp 96.9 F 08/24/22 15:47 Pulse 96 08/24/22 15:47 Resp 18 08/24/22 15:47 BP 154/93 H 08/24/22 15:47 Pulse Ox 95 08/24/22 15:47 O2 Del Method 08/24/22 15:47 BMI result Body Mass Index 27.6 Const: General: cooperative, healthy appearing and no acute distress Orientation/consciousness: patient oriented x3 Limitations: no limitations HEENT: Head: Yes normal to inspection and Yes atraumatic Ears: hearing grossly normal bilaterally General nose exam: Normal external nose present Face and sinus: Yes normal facial exam Eyes: General: appearance normal, both eyes and all related structures EOM: EOMs intact bilaterally Neck: Neck: Yes normal visual inspection and Yes no meningeal signs Resp: Effort & Inspection: normal respiratory effort and no respiratory distress Cardio: Rate: regular rate Peripheral pulses: posterior tibial pulses present Skin: Rashes: no rashes Neuro: General: patient oriented x3, gait normal, tone normal, moves all extremities and no meningeal signs Extrem: Other: Left foot with noted swelling and healing skin to nailbed of great toe. No erythema, no warmth, +soft tissue ttp. Scant clear drainage from nail bed. NV intact. No pedal edema, No calf ttp. No fluctuance/induration or crepitus Course Course Course Narrative: RME--61yo F with PMHx great toenail removal by Podiatry on 08/16 presenting to the ED complaining of continued/worsening left great toe swelling, erythema, pain, and drainage. Patient has been evaluated in our ED on 08/17 and 08/22 for similar symptoms, has been prescribed doxycycline and Keflex which she reports compliance as well as tramadol which reportedly is not controlling pain. Great toe nail bed appears appropriately healing, no active drainage, no erythema/warmth or cellulitis. Foot/leg mildly swollen. Diffusely tender to palpation. NV intact X-ray ordered in triage XR foot LT min 3V IMPRESSION: *? No acute fracture or dislocation. *? No acute osseous abnormalities. *? Soft tissue swelling about the forefoot. > Wound dressed with Xeroform Results discussed with patient including worrisome signs and symptoms and strict return precautions, and when to return to the emergency department. They verbalized understanding and feel safe for discharge at this time. Medications Administered Discontinued Medications Generic Name Dose Route Start Last Admin Trade Name Thomas PRN Reason Stop Dose Admin Acetaminophen/Codeine Phosphate 1 tab 08/24/22 18:34 08/24/22 18:39 Acetaminophen With Codeine # 3 Tablet PO 08/24/22 18:35 1 tab ONCE ONE Administration Medical Decision Making Medical Decision Making MDM Narrative: 61-year-old female with a past medical history of diabetes, asthma, anxiety, depression, HLD, GERD, presenting to the ED complaining of increasing pain and swelling to left great toe s/p nail removal by investor relations coordinator on 08/16. On exam vital signs stable, NAD, nontoxic appearing physical exam as above with appropriately healing nailbed s/p nail removal. No evidence of active cellulitis. Scant clear drainage noted. Foot is swollen without calf tenderness. No crepitus. Per [facility] patient filled a prescription of oxycodone on 08/05, Tylenol No. 3 on 08/06, tramadol on 08/17, and another tramadol on 08/22. Low suspicion for osteomyelitis or DVT/PE. Unlikely septic joint/arthritis Plan: X-ray, 1 time dose Tylenol No. 3 in the ED. Discussed with patient needs to follow-up with investor relations coordinator who performed formed procedure Please refer to course for remaining clinical decision making, interpretation of labs/imaging results, and discussions with consultants and/or family members. Differential Diagnosis Differential Diagnoses: The differential diagnosis associated with the presentation includes As above Lab Data [facility] Lab Attestation statement: I reviewed the patient's lab results. Radiology Impression Discussion of test interpretation with radiology: I have reviewed the radiologist's reading. External Record Review External record reviewed: Office record, Outpatient record and Prior outpatient labs Prescription Management I considered prescription management with: Pain Medication and Antibiotic Chronic Conditions Patient?s care impacted by: Diabetes Discharge Plan Discharge Clinical Impression: Visit for wound check Patient Disposition: Home, Self-Care Instructions: Ingrown Nail (ED) Additional Instructions: Continue taking previously prescribed antibiotics. Apply warm compresses. Call the investor relations coordinator who performed procedure for close follow-up If pain persists or worsens/becomes unbearable, you have continued drainage, fever, increasing swelling, redness, you are unable walk return to the ED Prescriptions: No Action cholecalciferol (vitamin D3) 50 mcg (2,000 unit) capsule 50 mcg PO DAILY Qty: 30 11RF (DME) FreeStyle Lite Strips Strip See Rx Instructions .ROUTE .COMPLEX Qty: 150 6RF Dose Instruction: USE TO TEST BLOOD SUGAR TWICE DAILY Rx Instructions: USE TO TEST BLOOD SUGAR TWICE DAILY thiamine HCl (vitamin B1) 100 mg tablet 100 mg PO DAILY Qty: 90 3RF hydroxyzine HCl 25 mg tablet 50 mg PO BEDTIME sertraline 100 mg tablet 1 tab PO BEDTIME pramipexole 0.25 mg tablet 1 tab DAILY tizanidine 4 mg tablet 1 tab PO BEDTIME acetaminophen [Tylenol Extra Strength] 500 mg tablet 500 mg PO Q6H PRN (Reason: fever or pain) Qty: 14 0RF lidocaine [Lidoderm] 5 % adhesive patch,medicated 1 patch topical DAILY MDD remove after 12 hours PRN (Reason: pain) Qty: 30 0RF Rx Instructions: leave on most painful area for up to 12 hrs cyclobenzaprine 5 mg tablet 5 mg PO Q8H PRN (Reason: pain (scale score 7-10)) 5 Days Qty: 14 0RF albuterol sulfate 90 mcg/actuation HFA aerosol inhaler 2 puff inhalation Q4-6H PRN (Reason: shortness of breath or wheezing) Qty: 6.7 0RF fluticasone propionate [Flonase Allergy Relief] 50 mcg/actuation spray,suspension 2 spray intranasal DAILY Qty: 16 0RF Rx Instructions: administer into each nostril lidocaine 5 % adhesive patch,medicated 1 patch topical DAILY PRN (Reason: pain) Qty: 15 0RF Rx Instructions: leave on most painful area for up to 12 hrs metformin 500 mg tablet extended release 24 hr 500 mg PO BID clindamycin phosphate 1 % gel 1 appl topical BID Qty: 60 0RF Rx Instructions: Apply 2 times a day to skin areas that are subject to recurrent flares. Begin after completing course of by mouth antibiotics ciprofloxacin-dexamethasone [Ciprodex] 0.3-0.1 % drops,suspension 4 drp otic (ears) BID 7 Days Qty: 7.5 0RF acarbose 25 mg tablet 25 mg PO TID 30 Days Qty: 90 4RF hydrochlorothiazide 12.5 mg capsule 12.5 mg PO DAILY ferrous sulfate 325 mg (65 mg iron) tablet,delayed release (DR/EC) 325 mg PO DAILY sucralfate 100 mg/mL suspension 10 ml PO BID pantoprazole 40 mg tablet,delayed release (DR/EC) 40 mg PO BID Qty: 60 6RF (DME) blood-glucose meter [FreeStyle Lite Meter] Kit See Rx Instructions .Route Qty: 1 0RF Rx Instructions: As directed test blood sugar two times a day cyanocobalamin (vitamin B-12) 1,000 mcg tablet 1,000 mcg PO QAM levofloxacin 500 mg tablet 500 mg PO DAILY 10 Days Qty: 10 0RF mupirocin calcium 2 % cream 1 appl topical BID Qty: 15 0RF oxycodone 5 mg tablet 5 mg PO BID PRN (Reason: pain) Qty: 10 0RF Rx Instructions: Partial Fill upon patient request. Referrals: Joyce Tapia MD [Primary Care Provider] - 2 days Interventions: ED Discharge Assessment Last Done: 08/24/22 19:14 Discharge Date/Time: 08/24/22 19:17
== END 2022-08-24 19:17 | disposition home or self-care (01) ==
PROVIDERS: Emergency Provider Emergency Medicine Emergency Medical Services; PCP Student in an Organized Health Care Education/Training Program
DX: M79.672 Pain in left foot (principal); Z48.00 Encounter for change or removal of nonsurgical wound dressing; E11.9 Type 2 diabetes mellitus without complications; E78.5 Hyperlipidemia, unspecified; Z86.718 Personal history of other venous thrombosis and embolism; Z87.891 Personal history of nicotine dependence
CPT/HCPCS: 73630; 99283

== ENCOUNTER → 2022-09-07 13:14 | Outpatient (BNVA) | payer MEDICAID, SELFPAY | PROVIDERS: PCP Student in an Organized Health Care Education/Training Program; Visit Provider Surgery | DX: L72.0 Epidermal cyst (principal) | CPT/HCPCS: 99212 ==

== ENCOUNTER 2022-09-22 22:41 | Emergency (ER) | payer MEDICAID, SELFPAY ==
[2022-09-22 23:41] VITALS: BP 124/77; PULSE 85; RESP 18; TEMP 36.5; O2SAT 96; BMI 26.5
[2022-09-23] VITALS: BP 130/82; PULSE 76; RESP 16; TEMP 36.7; O2SAT 97
--- NOTE | 2022-09-23 00:07 | PC.NURSE ---
Pt aox4 reports no sensation on the right great toe. Reports nail removal procedure performed by provider network manager last Tuesday. Reports increased bleeding and never regaining sensation after the great toe was numb. +pedal pulses present. Normal cap refill. Skin warm to touch. Bleeding present. Pending physician eval.
--- NOTE | 2022-09-23 00:16 | ED_ITS ---
HPI - Extremity Problem General Chief complaint: Extremity Problem Stated complaint: right big toe bleeding s/p surgery 09/20 Time Seen by Provider: 09/23/22 00:09 Source: patient Mode of arrival: ambulatory Limitations: no limitations History of Present Illness HPI Narrative: Patient diabetic had right toenail removed 5 days ago still oozing small amount of blood had to change gauze every 3-4 hours also does not have sensations of the right greater toe after surgery. No fever no swelling no pus discharge patient denies neuropathy Related Data Home Medications Medication Instructions Recorded Confirmed hydrochlorothiazide 12.5 mg capsule 12.5 mg PO DAILY 05/09/20 09/07/22 hydroxyzine HCl 25 mg tablet 50 mg PO BEDTIME 06/04/20 09/07/22 pramipexole 0.25 mg tablet 1 tab DAILY 10/20/21 09/07/22 sertraline 100 mg tablet 1 tab PO BEDTIME 10/20/21 09/07/22 tizanidine 4 mg tablet 1 tab PO BEDTIME 10/20/21 09/07/22 ferrous sulfate 325 mg (65 mg 325 mg PO DAILY 06/01/22 09/07/22 iron) tablet,delayed release cyanocobalamin (vitamin B-12) 1,000 mcg PO QAM 06/03/22 09/07/22 1,000 mcg tablet metformin 500 mg tablet,extended 500 mg PO BID 06/03/22 09/07/22 release 24 hr sucralfate 100 mg/mL oral 10 ml PO BID 06/17/22 09/07/22 suspension Previous Rx's Medication Instructions Recorded cholecalciferol (vitamin D3) 50 50 mcg PO DAILY #30 caps 12/15/20 mcg (2,000 unit) capsule acarbose 25 mg tablet 25 mg PO TID 30 days #90 tabs 12/31/20 albuterol sulfate 90 mcg/actuation 2 puff inhalation Q4-6H PRN 06/21/21 aerosol inhaler shortness of breath or wheezing #6.7 grams fluticasone propionate 50 2 spray intranasal DAILY #16 grams 06/21/21 mcg/actuation nasal spray,suspension (Flonase Allergy Relief) blood-glucose meter (FreeStyle #1 ea 08/21/21 Lite Meter kit) lidocaine 5 % topical patch 1 patch topical DAILY PRN pain #15 02/26/22 ea blood sugar diagnostic (FreeStyle #150 strips 03/30/22 Lite Strips) thiamine HCl (vitamin B1) 100 mg 100 mg PO DAILY #90 tabs 06/07/22 tablet pantoprazole 40 mg tablet,delayed 40 mg PO BID #60 tabs 06/17/22 release clindamycin phosphate 1 % topical 1 appl topical BID #60 grams 07/02/22 gel ciprofloxacin 0.3 %-dexamethasone 4 drp otic (ears) BID 7 days #7.5 07/30/22 0.1 % ear drops,suspension mL (Ciprodex) acetaminophen 500 mg tablet 500 mg PO Q6H PRN fever or pain 08/13/22 (Tylenol Extra Strength) #14 tabs cyclobenzaprine 5 mg tablet 5 mg PO Q8H PRN pain (scale score 08/13/22 7-10) 5 days #14 tabs lidocaine 5 % topical patch 1 patch topical DAILY PRN pain #30 08/13/22 (Lidoderm) ea levofloxacin 500 mg tablet 500 mg PO DAILY 10 days #10 tabs 09/07/22 mupirocin calcium 2 % topical cream 1 appl topical BID #15 grams 09/07/22 oxycodone 5 mg tablet 5 mg PO BID PRN pain #10 tabs 09/07/22 Allergies Allergy/AdvReac Type Severity Reaction Status Date / Time Penicillins Allergy Intermediate HIVES Verified 09/22/22 23:41 sulfamethoxazole Allergy Intermediate BLISTERS- Verified 09/22/22 23:41 [From BACTRIM] DELGADO - NERVE ENDINGS IN HAND/ERYTHEMA MULTIFORM trimethoprim [From BACTRIM] Allergy Intermediate BLISTERS- Verified 09/22/22 23:41 DELGADO - NERVE ENDINGS IN HAND/ERYTHEMA MULTIFORM latex [Latex] Allergy Mild RASH Verified 09/22/22 23:41 theophylline AdvReac Intermediate TACHYCARDIA Verified 09/22/22 23:41 TEGADERM Allergy Intermediate SKIN TEARS Uncoded 09/22/22 23:41 From COMPAZINE AdvReac Severe SEIZURES Uncoded 09/22/22 23:41 Review of Systems Review of Systems: Yes all other systems are reviewed and are negative PMFSH Past Medical History Medical History Anastomotic ulcer Anxiety Asthma Borderline diabetes Depression Diabetes type 2, controlled DVT (deep venous thrombosis) Dyslipidemia GERD (gastroesophageal reflux disease) High cholesterol History of restless legs syndrome Non-toxic multinodular goiter Surgical History History of excision of epidermal inclusion cyst (03/23/22) History of excision of mass (10/26/21) History of hysterectomy History of removal of cyst (07/28/22) History of surgery History of surgery on left wrist History of tooth extraction Hx of cholecystectomy Hx of elbow surgery Hx of esophagogastroduodenoscopy Hx of excision of epidermal inclusion cyst (12/25/21) Hx of hand surgery S/P gastric bypass S/P trigger finger release Family History Family History Mother Diabetes mellitus CHF (congestive heart failure) Kidney failure Cervical cancer Brother No problems noted. Brother No problems noted. 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 Oriented X3. No acute distress. ENT: Pharynx normal. Oral Mucosa moist Neck: Normal inspection. Neck supple. CVS: Normal heart rate and rhythm. Pulses normal. Respiratory: No respiratory distress. Equal air entry bilateral, Abdomen: Soft and nontender. Bowel sounds are present, Skin: Skin warm and dry. Normal skin color. Normal skin turgor. Extremities: No lower extremity edema. No calf tenderness left greater toe looks healthy no signs of infection slight oozing at the base of right nail bed Neuro: Oriented X 3. No motor deficit. Decreased sensation to touch and pinprick right greater toe Medical Decision Making Medical Decision Making [facility] Narrative: Silver nitrate applied bleeding stopped at the base of right greater toe patient did have sensation when silver nitrate was applied bleeding. Discharge Plan Discharge Clinical Impression: Encounter for wound care Patient Disposition: Home, Self-Care Instructions: Acute Wounds (ED) Additional Instructions: Care as advised Follow with watershed program manager as needed Prescriptions: No Action cholecalciferol (vitamin D3) 50 mcg (2,000 unit) capsule 50 mcg PO DAILY Qty: 30 11RF (DME) FreeStyle Lite Strips Strip See Rx Instructions .ROUTE .COMPLEX Qty: 150 6RF Dose Instruction: USE TO TEST BLOOD SUGAR TWICE DAILY Rx Instructions: USE TO TEST BLOOD SUGAR TWICE DAILY thiamine HCl (vitamin B1) 100 mg tablet 100 mg PO DAILY Qty: 90 3RF hydroxyzine HCl 25 mg tablet 50 mg PO BEDTIME sertraline 100 mg tablet 1 tab PO BEDTIME pramipexole 0.25 mg tablet 1 tab DAILY tizanidine 4 mg tablet 1 tab PO BEDTIME acetaminophen [Tylenol Extra Strength] 500 mg tablet 500 mg PO Q6H PRN (Reason: fever or pain) Qty: 14 0RF lidocaine [Lidoderm] 5 % adhesive patch,medicated 1 patch topical DAILY MDD remove after 12 hours PRN (Reason: pain) Qty: 30 0RF Rx Instructions: leave on most painful area for up to 12 hrs cyclobenzaprine 5 mg tablet 5 mg PO Q8H PRN (Reason: pain (scale score 7-10)) 5 Days Qty: 14 0RF albuterol sulfate 90 mcg/actuation HFA aerosol inhaler 2 puff inhalation Q4-6H PRN (Reason: shortness of breath or wheezing) Qty: 6.7 0RF fluticasone propionate [Flonase Allergy Relief] 50 mcg/actuation spra y,suspension 2 spray intranasal DAILY Qty: 16 0RF Rx Instructions: administer into each nostril lidocaine 5 % adhesive patch,medicated 1 patch topical DAILY PRN (Reason: pain) Qty: 15 0RF Rx Instructions: leave on most painful area for up to 12 hrs metformin 500 mg tablet extended release 24 hr 500 mg PO BID clindamycin phosphate 1 % gel 1 appl topical BID Qty: 60 0RF Rx Instructions: Apply 2 times a day to skin areas that are subject to recurrent flares. Begin after completing course of by mouth antibiotics ciprofloxacin-dexamethasone [Ciprodex] 0.3-0.1 % drops,suspension 4 drp otic (ears) BID 7 Days Qty: 7.5 0RF acarbose 25 mg tablet 25 mg PO TID 30 Days Qty: 90 4RF hydrochlorothiazide 12.5 mg capsule 12.5 mg PO DAILY ferrous sulfate 325 mg (65 mg iron) tablet,delayed release (DR/EC) 325 mg PO DAILY sucralfate 100 mg/mL suspension 10 ml PO BID pantoprazole 40 mg tablet,delayed release (DR/EC) 40 mg PO BID Qty: 60 6RF (DME) blood-glucose meter [FreeStyle Lite Meter] Kit See Rx Instructions .Route Qty: 1 0RF Rx Instructions: As directed test blood sugar two times a day cyanocobalamin (vitamin B-12) 1,000 mcg tablet 1,000 mcg PO QAM levofloxacin 500 mg tablet 500 mg PO DAILY 10 Days Qty: 10 0RF mupirocin calcium 2 % cream 1 appl topical BID Qty: 15 0RF oxycodone 5 mg tablet 5 mg PO BID PRN (Reason: pain) Qty: 10 0RF Rx Instructions: Partial Fill upon patient request.
[2022-09-23 00:41] VITALS: BP 118/83; PULSE 73; RESP 14; TEMP 36.6; O2SAT 99
[2022-09-23] MEDS: Silver Nitrate Applicator STICK..EA. 1 APPL TOPICAL (00:41)
--- NOTE | 2022-09-23 00:47 | PC.NURSE ---
Pt aox3 resting at the bedside. Silver nitrate applied to the right great toe by physician. Great toe no longer bleeding. Pt tolerated well. Discharge instructions reviewed with pt. Pt verbalizes understanding. Pt ambulates independently with steady gait at discharge.
== END 2022-09-23 00:52 | disposition home or self-care (01) ==
PROVIDERS: Emergency Provider Internal Medicine; PCP Student in an Organized Health Care Education/Training Program
DX: L76.22 Postprocedural hemorrhage of skin and subcutaneous tissue following other procedure (principal); Y83.8 Other surgical procedures as the cause of abnormal reaction of the patient, or of later complication, without mention of misadventure at the time of the procedure; E11.9 Type 2 diabetes mellitus without complications; Z87.891 Personal history of nicotine dependence
CPT/HCPCS: 17250; 99283

== ENCOUNTER → 2022-10-05 09:41 | Outpatient (BNVA) | payer MEDICAID, SELFPAY | PROVIDERS: PCP Student in an Organized Health Care Education/Training Program; Visit Provider Orthopaedic Surgery | DX: M67.432 Ganglion, left wrist (principal); G56.22 Lesion of ulnar nerve, left upper limb; G56.03 Carpal tunnel syndrome, bilateral upper limbs; E11.9 Type 2 diabetes mellitus without complications | CPT/HCPCS: 99212 ==

== ENCOUNTER 2022-10-14 05:59 | Day surgery (SDC) | payer MEDICAID, SELFPAY ==
[2022-10-11 15:50] VITALS: BMI 26.5
--- NOTE | 2022-10-13 07:55 | P.CONAN_ITS ---
Documented by User: Daily Aburto NP 10/13/22 07:56 HPI - Anesthesia Eval Consult details Narrative: 61yo F for Right Repeat Carpal Tunnel Release s/p cyst excision 07/2022 with GA-ETT 7 PMFSH Active Problems Active Problems: All Active Problems (Updated 10/05/22 @ 09:54 by Alcides Felix) Carpal tunnel syndrome of right wrist (Acute) Infection of skin due to methicillin resistant Staphylococcus aureus (MRSA) (Acute) Overweight (BMI 25.0-29.9) (Acute) Epidermal inclusion cyst (Acute) Trigger finger, left middle finger (Acute) Trigger finger, left ring finger (Acute) Emesis (Acute) Stiffness of left hand joint (Acute) Hidradenitis suppurativa (Acute) Left hand pain (Acute) Numbness and tingling in left hand (Acute) Contusion of right ankle (Acute) Carpal tunnel syndrome of left wrist (Acute) Cubital tunnel syndrome on left (Acute) Abscess (Acute) Sebaceous cyst (Acute) COVID-19 (Acute) Abdominal pain (Acute) Ganglion cyst of dorsum of left wrist (Acute) Numbness of right hand (Acute) GERD (gastroesophageal reflux disease) (Acute) Asthma (Acute) Dyslipidemia (Acute) Non-toxic multinodular goiter (Acute) Diabetes type 2, controlled (Acute) Anastomotic ulcer (Acute) S/P gastric bypass (Acute) Borderline diabetes (Acute) Past Medical History Medical History Anastomotic ulcer Anxiety Asthma Borderline diabetes Depression Diabetes type 2, controlled DVT (deep venous thrombosis) Dyslipidemia GERD (gastroesophageal reflux disease) High cholesterol History of restless legs syndrome Non-toxic multinodular goiter Family History Family History Mother Diabetes mellitus CHF (congestive heart failure) Kidney failure Cervical cancer Brother No problems noted. Brother No problems noted. Family history of problems with anesthesia: No Surgical History Surgical History History of excision of epidermal inclusion cyst (03/23/22) History of excision of mass (10/26/21) History of hysterectomy History of removal of cyst (07/28/22) History of surgery History of surgery on left wrist History of tooth extraction Hx of cholecystectomy Hx of elbow surgery Hx of esophagogastroduodenoscopy Hx of excision of epidermal inclusion cyst (12/25/21) Hx of hand surgery S/P gastric bypass S/P trigger finger release History of Problems with Anesthesia: No Social History Social History Household Members: Spouse Are you a primary special needs child caregiver to a significant other at home: No Do you presently have visiting nurse or other home services: No Alcohol intake: never Patient Tobacco Use Status: Current someday Tobacco user Tobacco use type: Cigarette Cigarette Packs Per Day: 0 Cigarettes Per Day: 1 Years Smoked: 30 Are you DNR?: No Advance Directives: No Advance Directives Information Provided: Yes Recently lost weight without trying: No Current occupational status: employed 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 Meds Allergies Allergy/AdvReac Type Severity Reaction Status Date / Time Penicillins Allergy Intermediate HIVES Verified 10/05/22 09:52 sulfamethoxazole Allergy Intermediate BLISTERS- Verified 10/05/22 09:52 [From BACTRIM] DELGADO - NERVE ENDINGS IN HAND/ERYTHEMA MULTIFORM trimethoprim [From BACTRIM] Allergy Intermediate BLISTERS- Verified 10/05/22 09:52 DELGADO - NERVE ENDINGS IN HAND/ERYTHEMA MULTIFORM latex [Latex] Allergy Mild RASH Verified 10/05/22 09:52 theophylline AdvReac Intermediate TACHYCARDIA Verified 10/05/22 09:52 TEGADERM Allergy Intermediate SKIN TEARS Uncoded 10/05/22 09:52 From COMPAZINE AdvReac Severe SEIZURES Uncoded 10/05/22 09:52 Home Medications Medication Instructions Recorded Confirmed Last Taken Type hydrochlorothiazide 12.5 mg capsule 12.5 mg PO DAILY 05/09/20 09/07/22 10/13/22 History hydroxyzine HCl 25 mg tablet 50 mg PO BEDTIME 06/04/20 09/07/22 10/13/22 History pramipexole 0.25 mg tablet 1 tab DAILY 10/20/21 09/07/22 10/13/22 History sertraline 100 mg tablet 1 tab PO BEDTIME 10/20/21 09/07/22 10/13/22 History tizanidine 4 mg tablet 1 tab PO BEDTIME 10/20/21 09/07/22 10/13/22 History ferrous sulfate 325 mg (65 mg 325 mg PO DAILY 06/01/22 09/07/22 10/11/22 History iron) tablet,delayed release cyanocobalamin (vitamin B-12) 1,000 mcg PO QAM 06/03/22 09/07/22 10/13/22 History 1,000 mcg tablet metformin 500 mg tablet,extended 500 mg PO BID 06/03/22 09/07/22 10/13/22 History release 24 hr Exam Exam Date and Time: October 13, 2022 0755 Height,Weight and Vital Signs: Height 5 ft 3 in Weight 68.039 kg Pertinent Lab Results Pertinent Lab Results: Laboratory Tests 08/13/22 08/13/22 10:13 10:13 WBC 8.2 Hgb 13.2 Hct 39.2 Plt Count 192 Sodium 143 Potassium 3.8 Chloride 108 Carbon Dioxide 27 BUN 15 Creatinine 0.77 Narrative Narrative: EKG 02/2022 Vent. Rate : 078 BPM ? ? Atrial Rate : 078 BPM ?? P-R Int : 164 ms? QRS Dur : 072 ms ? ? QT Int : 358 ms ? ? ? P-R-T Axes : 017 028 020 degrees ?? QTc Int : 408 ms ? Normal sinus rhythm Normal ECG When compared with ECG of 28-OCT-2020 21:36, No significant change was found Assessment and Plan Assessment Anesthesia Assessment: Chart Reviewed Final Anesthetic Review Family History of Problems with Anesthesia: No History of Problems with Anesthesia: No Documented by User: Lucinda Flores MD 10/14/22 07:29 [facility] Past Medical History Medical History Anastomotic ulcer Anxiety Asthma Borderline diabetes Depression Diabetes type 2, controlled DVT (deep venous thrombosis) Dyslipidemia GERD (gastroesophageal reflux disease) High cholesterol History of restless legs syndrome Non-toxic multinodular goiter Family History Family History Mother Diabetes mellitus CHF (congestive heart failure) Kidney failure Cervical cancer Brother No problems noted. Brother No problems noted. Surgical History Surgical History History of excision of epidermal inclusion cyst (03/23/22) History of excision of mass (10/26/21) History of hysterectomy History of removal of cyst (07/28/22) History of surgery History of surgery on left wrist History of tooth extraction Hx of cholecystectomy Hx of elbow surgery Hx of esophagogastroduodenoscopy Hx of excision of epidermal inclusion cyst (12/25/21) Hx of hand surgery S/P gastric bypass S/P trigger finger release Social History Social History Household Members: Spouse Are you a primary special needs child caregiver to a significant other at home: No Do you presently have visiting nurse or other home services: No Alcohol intake: never Patient Tobacco Use Status: Current someday Tobacco user Tobacco use type: Cigarette Cigarette Packs Per Day: 0 Cigarettes Per Day: 1 Years Smoked: 30 Are you DNR?: No Advance Directives: No Advance Directives Information Provided: Yes Recently lost weight without trying: No Current occupational status: employed 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 Meds Allergies Allergy/AdvReac Type Severity Reaction Status Date / Time Penicillins Allergy Intermediate HIVES Verified 10/05/22 09:52 sulfamethoxazole Allergy Intermediate BLISTERS- Verified 10/05/22 09:52 [From BACTRIM] DELGADO - NERVE ENDINGS IN HAND/ERYTHEMA MULTIFORM trimethoprim [From BACTRIM] Allergy Intermediate BLISTERS- Verified 10/05/22 09:52 DELGADO - NERVE ENDINGS IN HAND/ERYTHEMA MULTIFORM latex [Latex] Allergy Mild RASH Verified 10/05/22 09:52 theophylline AdvReac Intermediate TACHYCARDIA Verified 10/05/22 09:52 TEGADERM Allergy Intermediate SKIN TEARS Uncoded 10/05/22 09:52 From COMPAZINE AdvReac Severe SEIZURES Uncoded 10/05/22 09:52 Home Medications Medication Instructions Recorded Confirmed Last Taken Type hydrochlorothiazide 12.5 mg capsule 12.5 mg PO DAILY 05/09/20 09/07/22 10/13/22 History hydroxyzine HCl 25 mg tablet 50 mg PO BEDTIME 06/04/20 09/07/22 10/13/22 History pramipexole 0.25 mg tablet 1 tab DAILY 10/20/21 09/07/22 10/13/22 History sertraline 100 mg tablet 1 tab PO BEDTIME 10/20/21 09/07/22 10/13/22 History tizanidine 4 mg tablet 1 tab PO BEDTIME 10/20/21 09/07/22 10/13/22 History ferrous sulfate 325 mg (65 mg 325 mg PO DAILY 06/01/22 09/07/22 10/11/22 History iron) tablet,delayed release cyanocobalamin (vitamin B-12) 1,000 mcg PO QAM 06/03/22 09/07/22 10/13/22 History 1,000 mcg tablet metformin 500 mg tablet,extended 500 mg PO BID 06/03/22 09/07/22 10/13/22 History release 24 hr Exam Airway Mallampati Class: II TM Dist: >3cm Neck ROM: Full Denture: Upper Heart: rrr Lungs: cta Assessment and Plan Assessment Anesthesia Assessment: Anesthesia Plan Discussed Final Anesthetic Review NPO: Yes ASA Class: III Final Preanesthetic Review: No Changes in Pt Med Stat, Meds/Allgs Chart Reviewed, Consent Obtained/Reviewed and Anes Risks/Benef Reviewed Patient Risk: Intermediate Procedure Risk: Low Anesthetic Plan Anesthetic Plan: GA Disposition: Standard PACU
[2022-10-14] VITALS (7 sets, daily range): BP systolic 112–130; BP diastolic 60–71; PULSE 74–80; RESP 15–20; TEMP 36.3–36.7; O2SAT 92–98
[2022-10-14 06:17] LABS: Glucose, Whole Blood 109 mg/dL (60-115)
[2022-10-14] MEDS: Lactated Ringers 1,000 ML 100 ML IVCONT (06:36)
--- NOTE | 2022-10-14 08:57 | MHC.SHP ---
Pre-Procedural Eval Section A Date of Service: 10/14/22 The patient is an INPATIENT: No Changes since office visit: No Cold of Flu in the past 2 weeks, No New Medical Problems, No Changes in Medication and No Patient answered all questions The History & Physical has been completed within 30 days and I have reviewed it.: Yes Section B Chief Complaint: Carpal tunnel syndrome, right upper limb Allergies: Allergies Allergy/AdvReac Type Severity Reaction Status Date / Time Penicillins Allergy Intermediate HIVES Verified 10/05/22 09:52 sulfamethoxazole Allergy Intermediate BLISTERS- Verified 10/05/22 09:52 [From BACTRIM] DELGADO - NERVE ENDINGS IN HAND/ERYTHEMA MULTIFORM trimethoprim [From BACTRIM] Allergy Intermediate BLISTERS- Verified 10/05/22 09:52 DELGADO - NERVE ENDINGS IN HAND/ERYTHEMA MULTIFORM latex [Latex] Allergy Mild RASH Verified 10/05/22 09:52 theophylline AdvReac Intermediate TACHYCARDIA Verified 10/05/22 09:52 TEGADERM Allergy Intermediate SKIN TEARS Uncoded 10/05/22 09:52 From COMPAZINE AdvReac Severe SEIZURES Uncoded 10/05/22 09:52 Plan I have reviewed the history and physical and performed a pertinent physical examination on my patient. No changes have occurred unless specified. Time Spent With Patient Time: Total time managing care of this patient today ____ minutes.
--- NOTE | 2022-10-14 08:58 | W.PM.OPN ---
Operative Note Operative Note Date of Service: 10/14/22 Narrative: Operative Note Narrative: Preop diagnosis: Right recurrent carpal tunnel syndrome Postop diagnosis: Same Procedure: right carpal tunnel release Surgeon: Jessy Bautista MD Anesthesia: General Anesthesia Findings: thickened transverse carpal ligament Implants: none Tourniquet time: 8 minutes EBL: 5.0 ml Specimen: none Drains: None Complications: None Disposition: Brought to the recovery room in stable condition Plan: Follow-up in 10-14 days for wound check, suture removal Indications: The patient is a 61 year old woman with were current right carpal tunnel syndrome, and anxiety about having the procedure done under local anesthesia. . The risks and benefits of operative treatment, including but not limited to risk of damage to blood vessels, nerves, tendons, infection, recurrence, persistent pain or numbness, incomplete resolution of preoperative symptoms, or need for further surgery were discussed with the patient and they wished to proceed with surgery. Procedure: Once consent was obtained patient was brought back to the operating suite and placed in the operating table in a supine position. . Perioperative antibiotics and anesthesia was administered by the anesthesia team. A tourniquet was applied to the proximal aspect of the Right upper extremity and the limb was prepped and draped in a standard surgical fashion. The limb was elevated exsanguinated with Esmarch bandage and the tourniquet inflated to 250 mm of mercury for a total tourniquet time of 8 minutes. a 2.0 cm longitudinal incision was made centered over the right carpal tunnel. The incision was made through the skin to the subcutaneous tissues using a #15 blade. Dissection was made down to the level of the transverse carpal ligament with care being taken to protect the palmar cutaneous nerve. Once the transverse carpal ligament was clearly visualized, a longitudinal incision was made in the transverse carpal ligament 1st using a #15 blade, then using tenotomy scissors under direct visualization. Care was taken to look for and protect the motor branch of the median nerve when seen in this area. Once satisfied with our carpal tunnel release the wound was irrigated with normal saline. At this point the tourniquet was deflated and hemostasis obtained with a brief period of local pressure and bipolar electrocautery. The wound was copiously irrigated with normal saline. The skin edges were reapproximated with 5-0 nylon suture. The wound was infiltrated with some 1% lidocaine with epinephrine for postop pain control and a sterile dressing was applied. The patient appears to have tolerated the procedure well and with no complications. All digits were well vascularized conclusion of the case.
== END 2022-10-14 11:17 | disposition home or self-care (01) ==
PROVIDERS: PCP Student in an Organized Health Care Education/Training Program; Visit Provider Orthopaedic Surgery
PROC: (CPT 64721; principal; 2022-10-14 07:30)
DX: G56.01 Carpal tunnel syndrome, right upper limb (principal); E11.9 Type 2 diabetes mellitus without complications; J45.909 Unspecified asthma, uncomplicated; Z88.0 Allergy status to penicillin; Z88.2 Allergy status to sulfonamides; Z91.040 Latex allergy status
CPT/HCPCS: 64721; 82947; J1100; J1885; J2370; J2405; J2795; J3010

== ENCOUNTER 2022-10-18 23:05 | Emergency (ER) | payer MEDICAID, SELFPAY ==
[2022-10-19 00:17] VITALS: BP 128/65; PULSE 92; RESP 16; TEMP 36.8; O2SAT 96; BMI 27.3
--- NOTE | 2022-10-19 02:00 | ED.EXTPRO ---
HPI - Extremity Problem General Chief complaint: Extremity Problem Stated complaint: hand postop pain, diabetic Time Seen by Provider: 10/19/22 01:50 Source: patient Mode of arrival: ambulatory Limitations: no limitations History of Present Illness HPI Narrative: Patient is status post carpal tunnel surgery right and 4 days ago comes here for feeling increased pain at the site of surgery with slight swelling of the fingers. No fever no pus discharge Related Data Home Medications Medication Instructions Recorded Confirmed hydrochlorothiazide 12.5 mg capsule 12.5 mg PO DAILY 05/09/20 09/07/22 hydroxyzine HCl 25 mg tablet 50 mg PO BEDTIME 06/04/20 09/07/22 pramipexole 0.25 mg tablet 1 tab DAILY 10/20/21 09/07/22 sertraline 100 mg tablet 1 tab PO BEDTIME 10/20/21 09/07/22 tizanidine 4 mg tablet 1 tab PO BEDTIME 10/20/21 09/07/22 ferrous sulfate 325 mg (65 mg 325 mg PO DAILY 06/01/22 09/07/22 iron) tablet,delayed release cyanocobalamin (vitamin B-12) 1,000 mcg PO QAM 06/03/22 09/07/22 1,000 mcg tablet metformin 500 mg tablet,extended 500 mg PO BID 06/03/22 09/07/22 release 24 hr Previous Rx's Medication Instructions Recorded cholecalciferol (vitamin D3) 50 50 mcg PO DAILY #30 caps 12/15/20 mcg (2,000 unit) capsule acarbose 25 mg tablet 25 mg PO TID 30 days #90 tabs 12/31/20 albuterol sulfate 90 mcg/actuation 2 puff inhalation Q4-6H PRN 06/21/21 aerosol inhaler shortness of breath or wheezing #6.7 grams fluticasone propionate 50 2 spray intranasal DAILY #16 grams 06/21/21 mcg/actuation nasal spray,suspension (Flonase Allergy Relief) blood-glucose meter (FreeStyle #1 ea 08/21/21 Lite Meter kit) blood sugar diagnostic (FreeStyle #150 strips 03/30/22 Lite Strips) thiamine HCl (vitamin B1) 100 mg 100 mg PO DAILY #90 tabs 06/07/22 tablet pantoprazole 40 mg tablet,delayed 40 mg PO BID #60 tabs 12/15/22 release lidocaine 5 % topical patch 1 patch topical DAILY PRN pain #30 08/13/22 (Lidoderm) ea hydrocodone 5 mg-acetaminophen 325 1 tab PO Q4-6H PRN pain #5 tabs 10/14/22 mg tablet hydrocodone 5 mg-acetaminophen 325 1 tab PO Q6H PRN pain #10 tabs 10/14/22 mg tablet oxycodone 5 mg tablet 5 mg PO Q6H PRN pain #20 tabs 10/19/22 Allergies Allergy/AdvReac Type Severity Reaction Status Date / Time Penicillins Allergy Intermediate HIVES Verified 10/19/22 00:25 sulfamethoxazole Allergy Intermediate BLISTERS- Verified 10/19/22 00:25 [From BACTRIM] DELGADO - NERVE ENDINGS IN HAND/ERYTHEMA MULTIFORM trimethoprim [From BACTRIM] Allergy Intermediate BLISTERS- Verified 10/19/22 00:25 DELGADO - NERVE ENDINGS IN HAND/ERYTHEMA MULTIFORM latex [Latex] Allergy Mild RASH Verified 10/19/22 00:25 theophylline AdvReac Intermediate TACHYCARDIA Verified 10/19/22 00:25 TEGADERM Allergy Intermediate SKIN TEARS Uncoded 10/05/22 09:52 From COMPAZINE AdvReac Severe SEIZURES Uncoded 10/05/22 09:52 Review of Systems Review of Systems: Yes all other systems are reviewed and are negative PMFSH Past Medical History Medical History Anastomotic ulcer Anxiety Asthma Borderline diabetes Depression Diabetes type 2, controlled DVT (deep venous thrombosis) Dyslipidemia GERD (gastroesophageal reflux disease) High cholesterol History of restless legs syndrome Non-toxic multinodular goiter Surgical History History of excision of epidermal inclusion cyst (03/23/22) History of excision of mass (10/26/21) History of hysterectomy History of removal of cyst (07/28/22) History of surgery History of surgery on left wrist History of tooth extraction Hx of cholecystectomy Hx of elbow surgery Hx of esophagogastroduodenoscopy Hx of excision of epidermal inclusion cyst (12/25/21) Hx of hand surgery S/P gastric bypass S/P trigger finger release Family History Family History Mother Diabetes mellitus CHF (congestive heart failure) Kidney failure Cervical cancer Brother No problems noted. Brother No problems noted. 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 Side of surgery no signs of infection no swelling good capillary refill neuro sensory intact Medical Decision Making Medical Decision Making MDM Narrative: Patient with postop pain in the right hand post carpal tunnel surgery no signs of vascular compromise neuro logical intact. Dressing was loosened up and patient felt much much better recheck patient home on pain management advised to follow with hand surgeon Discharge Plan Discharge Clinical Impression: Encounter for postoperative wound care Patient Disposition: Home, Self-Care Instructions: Pain Management After Surgery (DC) Additional Instructions: Keep your right hand elevated Pain medication as prescribed Follow-up with your hand surgeon Prescriptions: New oxycodone 5 mg tablet 5 mg PO Q6H PRN (Reason: pain) Qty: 20 0RF Rx Instructions: Partial Fill upon patient request. No Action cholecalciferol (vitamin D3) 50 mcg (2,000 unit) capsule 50 mcg PO DAILY Qty: 30 11RF (DME) FreeStyle Lite Strips Strip See Rx Instructions .ROUTE .COMPLEX Qty: 150 6RF Dose Instruction: USE TO TEST BLOOD SUGAR TWICE DAILY Rx Instructions: USE TO TEST BLOOD SUGAR TWICE DAILY thiamine HCl (vitamin B1) 100 mg tablet 100 mg PO DAILY Qty: 90 3RF hydrocodone-acetaminophen 5-325 mg tablet 1 tab PO Q6H PRN (Reason: pain) Qty: 10 0RF Rx Instructions: Partial Fill upon patient request. hydroxyzine HCl 25 mg tablet 50 mg PO BEDTIME sertraline 100 mg tablet 1 tab PO BEDTIME pramipexole 0.25 mg tablet 1 tab DAILY tizanidine 4 mg tablet 1 tab PO BEDTIME lidocaine [Lidoderm] 5 % adhesive patch,medicated 1 patch topical DAILY MDD remove after 12 hours PRN (Reason: pain) Qty: 30 0RF Rx Instructions: leave on most painful area for up to 12 hrs albuterol sulfate 90 mcg/actuation HFA aerosol inhaler 2 puff inhalation Q4-6H PRN (Reason: shortness of breath or wheezing) Qty: 6.7 0RF fluticasone propionate [Flonase Allergy Relief] 50 mcg/actuation spray,suspension 2 spray intranasal DAILY Qty: 16 0RF Rx Instructions: administer into each nostril metformin 500 mg tablet extended release 24 hr 500 mg PO BID hydrocodone-acetaminophen 5-325 mg tablet 1 tab PO Q4-6H PRN (Reason: pain) Qty: 5 0RF Rx Instructions: Partial Fill upon patient request. acarbose 25 mg tablet 25 mg PO TID 30 Days Qty: 90 4RF hydrochlorothiazide 12.5 mg capsule 12.5 mg PO DAILY ferrous sulfate 325 mg (65 mg iron) tablet,delayed release (DR/EC) 325 mg PO DAILY pantoprazole 40 mg tablet,delayed release (DR/EC) 40 mg PO BID Qty: 60 6RF (DME) blood-glucose meter [FreeStyle Lite Meter] Kit See Rx Instructions .Route Qty: 1 0RF Rx Instructions: As directed test blood sugar two times a day cyanocobalamin (vitamin B-12) 1,000 mcg tablet 1,000 mcg PO QAM
[2022-10-19] MEDS: oxyCODONE HCl Immed Release 5 MG TABLET PO (02:43)
--- NOTE | 2022-10-19 02:46 | PC.NURSE ---
pt assess and discharge by provider, this rn reviewed discharge paper work, pt verbalized understanding. no sign of distress, positive cms and pulse to right hand,
== END 2022-10-19 03:00 | disposition home or self-care (01) ==
PROVIDERS: Emergency Provider Internal Medicine
DX: G89.18 Other acute postprocedural pain (principal); Z48.01 Encounter for change or removal of surgical wound dressing; E11.9 Type 2 diabetes mellitus without complications; E78.5 Hyperlipidemia, unspecified; Z86.718 Personal history of other venous thrombosis and embolism; Z79.84 Long term (current) use of oral hypoglycemic drugs; Z79.899 Other long term (current) drug therapy
CPT/HCPCS: 99283

== ENCOUNTER → 2022-10-27 11:13 | Outpatient (BNVA) | payer MEDICAID, SELFPAY | PROVIDERS: Visit Provider Orthopaedic Surgery | DX: Z48.02 Encounter for removal of sutures (principal); G56.03 Carpal tunnel syndrome, bilateral upper limbs; G56.22 Lesion of ulnar nerve, left upper limb; M67.432 Ganglion, left wrist; E11.9 Type 2 diabetes mellitus without complications | CPT/HCPCS: 99212 ==

== ENCOUNTER 2022-10-30 22:51 | Emergency (ER) | payer MEDICAID, SELFPAY ==
--- NOTE | ~2022-10-30 | XR_ITS ---
EXAMINATION: XR ANKLE, RIGHT CLINICAL INFORMATION: Rolled ankle COMPARISON: None available. TECHNIQUE: AP, lateral, and mortise views of the right ankle. FINDINGS: No fracture or dislocation. The ankle mortise is congruent. Ankle joint effusion is suspected. Small osteophytes at the tibiotalar articulation. No soft tissue abnormality otherwise. Small heel spurs. XR/XR ankle RT min 3V IMPRESSION: No fracture or malalignment. Ankle joint effusion suspected.
[2022-10-30 23:32] VITALS: BP 112/67; PULSE 89; RESP 18; TEMP 36.3; O2SAT 99; BMI 60.1
--- NOTE | 2022-10-31 02:19 | ED_ITS ---
HPI - Extremity Injury (Lower) General Chief Complaint: Extremity Injury, Lower Stated Complaint: fell, twisted ankle Time Seen by Provider: 10/31/22 02:12 Source: patient Mode of arrival: ambulatory Limitations: no limitations History of Present Illness HPI Narrative: Patient comes to the emergency room complaining of right ankle pain. Patient states that she missed a step on the ladder and rolled her ankle. Patient denies any other injury. Related Data Home Medications Medication Instructions Recorded Confirmed hydrochlorothiazide 12.5 mg capsule 12.5 mg PO DAILY 05/09/20 09/07/22 hydroxyzine HCl 25 mg tablet 50 mg PO BEDTIME 06/04/20 09/07/22 pramipexole 0.25 mg tablet 1 tab DAILY 10/20/21 09/07/22 sertraline 100 mg tablet 1 tab PO BEDTIME 10/20/21 09/07/22 tizanidine 4 mg tablet 1 tab PO BEDTIME 10/20/21 09/07/22 ferrous sulfate 325 mg (65 mg 325 mg PO DAILY 06/01/22 09/07/22 iron) tablet,delayed release cyanocobalamin (vitamin B-12) 1,000 mcg PO QAM 06/03/22 09/07/22 1,000 mcg tablet metformin 500 mg tablet,extended 500 mg PO BID 06/03/22 09/07/22 release 24 hr Previous Rx's Medication Instructions Recorded cholecalciferol (vitamin D3) 50 50 mcg PO DAILY #30 caps 12/15/20 mcg (2,000 unit) capsule acarbose 25 mg tablet 25 mg PO TID 30 days #90 tabs 12/31/20 albuterol sulfate 90 mcg/actuation 2 puff inhalation Q4-6H PRN 06/21/21 aerosol inhaler shortness of breath or wheezing #6.7 grams fluticasone propionate 50 2 spray intranasal DAILY #16 grams 06/21/21 mcg/actuation nasal spray,suspension (Flonase Allergy Relief) blood-glucose meter (FreeStyle #1 ea 08/21/21 Lite Meter kit) blood sugar diagnostic (FreeStyle #150 strips 03/30/22 Lite Strips) thiamine HCl (vitamin B1) 100 mg 100 mg PO DAILY #90 tabs 06/07/22 tablet pantoprazole 40 mg tablet,delayed 40 mg PO BID #60 tabs 06/17/22 release lidocaine 5 % topical patch 1 patch topical DAILY PRN pain #30 08/13/22 (Lidoderm) ea hydrocodone 5 mg-acetaminophen 325 1 tab PO Q4-6H PRN pain #5 tabs 10/14/22 mg tablet hydrocodone 5 mg-acetaminophen 325 1 tab PO Q6H PRN pain #10 tabs 10/14/22 mg tablet oxycodone 5 mg tablet 5 mg PO Q6H PRN pain #20 tabs 10/19/22 oxycodone 5 mg tablet 5 mg PO BID PRN pain #5 tabs 10/31/22 Allergies Allergy/AdvReac Type Severity Reaction Status Date / Time Penicillins Allergy Intermediate HIVES Verified 10/19/22 00:25 sulfamethoxazole Allergy Intermediate BLISTERS- Verified 10/19/22 00:25 [From BACTRIM] DELGADO - NERVE ENDINGS IN HAND/ERYTHEMA MULTIFORM trimethoprim [From BACTRIM] Allergy Intermediate BLISTERS- Verified 10/19/22 00:25 DELGADO - NERVE ENDINGS IN HAND/ERYTHEMA MULTIFORM latex [Latex] Allergy Mild RASH Verified 10/19/22 00:25 theophylline AdvReac Intermediate TACHYCARDIA Verified 10/19/22 00:25 TEGADERM Allergy Intermediate SKIN TEARS Uncoded 10/05/22 09:52 From COMPAZINE AdvReac Severe SEIZURES Uncoded 10/05/22 09:52 Review of Systems Review of Systems: Constitutional : No Weight loss, No Fever, No Chills, No Night Sweats, No Fatigue, No Malaise ENT/Mouth : No Hearing loss, No Ear Pain, No Nasal Congestion, No Sinus Pain, No Hoarseness, No sore throat, No Rhinorrhea, No Swallowing Difficulty Eyes: No Eye Pain, No Swelling, No Redness, No Foreign Body, No Discharge, No Vision Changes Cardiovascular : No Chest Pain, No SOB, No Dyspnea on Exertion, No Orthopnea, No Edema, No Palpitations Respiratory : No Cough, No Sputum, No Wheezing, No Smoke Exposure, No Dyspnea Gastrointestinal : No Nausea, No Vomiting, No Diarrhea, No Constipation, No abdominal Pain, No Hematochezia, No Melena Genitourinary : no irregular bleeding, No Dysuria, No Urinary Frequency, No Hematuria, No Urinary Incontinence, No Urgency, No Flank Pain, No Urinary Flow Changes, No Hesitancy Musculoskeletal : Complaining of right ankle pain, No Myalgias, No Joint Swelling Skin : No Skin Lesions, No rash Neuro : No Weakness, No Numbness, No Paresthesias, No Loss of Consciousness, No Dizziness, No Headache Psych : No Anxiety/Panic, No Depression, No SI/HI/AH/VH, No Social Issues, Heme/Lymph: No Bruising, No Bleeding,No Lymphadenopathy Endocrine : No Polyuria, No Polydipsia, No Temperature Intolerance [facility], [facility] Past Medical History Medical History Anastomotic ulcer Anxiety Asthma Borderline diabetes Depression Diabetes type 2, controlled DVT (deep venous thrombosis) Dyslipidemia GERD (gastroesophageal reflux disease) High cholesterol History of restless legs syndrome Non-toxic multinodular goiter Surgical History History of excision of epidermal inclusion cyst (03/23/22) History of excision of mass (10/26/21) History of hysterectomy History of removal of cyst (07/28/22) History of surgery History of surgery on left wrist History of tooth extraction Hx of cholecystectomy Hx of elbow surgery Hx of esophagogastroduodenoscopy Hx of excision of epidermal inclusion cyst (12/25/21) Hx of hand surgery S/P gastric bypass S/P trigger finger release Family History Family History Mother Diabetes mellitus CHF (congestive heart failure) Kidney failure Cervical cancer Brother No problems noted. Brother No problems noted. 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 Oriented X3. No acute distress. Eyes: Pupils equal, round and reactive to light. ENT: Pharynx normal. Neck: Normal inspection. Neck supple. No lymph nodes noted. No crepitus CVS: Normal heart rate and rhythm. Pulses normal. Normal S1 and S2 Respiratory: No respiratory distress. Breath sounds normal. No Wheezing. No rales Abdomen: Soft and nontender. No rigidity. No distention. Skin: Skin warm and dry. Normal skin color. Normal skin turgor. Extremities: Right ankle is minimally swollen, no ecchymosis, patient states that her so much to put any pressure on her foot Neuro: Oriented X 3. No motor deficit. No sensory deficit. Moving all extremities. No slurred speech. CN 2 through 12 grossly intact Psych: calm, cooperative, normal affect Medical Decision Making Medical Decision Making MDM Narrative: -x-rays of the ankle are negative for fracture. -patient was provided with crutches - Radiology Impression Discussion of test interpretation with radiology: I have reviewed the radiologist's reading. Radiologist Impression: FINDINGS: No fracture or dislocation. The ankle mortise is congruent. Ankle joint effusion is suspected. Small osteophytes at the tibiotalar articulation. No soft tissue abnormality otherwise. Small heel spurs.? XR/XR ankle RT min 3V IMPRESSION: No fracture or malalignment. Ankle joint effusion suspected. Discharge Plan Discharge Clinical Impression: Ankle sprain Patient Disposition: Home, Self-Care Instructions: Ankle Sprain (ED) Additional Instructions: Please follow-up with your primary care physician tomorrow. If you have any worsening or new symptoms, please return to the emergency room or call 911 Prescriptions: New oxycodone 5 mg tablet 5 mg PO BID PRN (Reason: pain) Qty: 5 0RF Rx Instructions: Partial Fill upon patient request. No Action cholecalciferol (vitamin D3) 50 mcg (2,000 unit) capsule 50 mcg PO DAILY Qty: 30 11RF (DME) FreeStyle Lite Strips Strip See Rx Instructions .ROUTE .COMPLEX Qty: 150 6RF Dose Instruction: USE TO TEST BLOOD SUGAR TWICE DAILY Rx Instructions: USE TO TEST BLOOD SUGAR TWICE DAILY thiamine HCl (vitamin B1) 100 mg tablet 100 mg PO DAILY Qty: 90 3RF hydrocodone-acetaminophen 5-325 mg tablet 1 tab PO Q6H PRN (Reason: pain) Qty: 10 0RF Rx Instructions: Partial Fill upon patient request. hydroxyzine HCl 25 mg tablet 50 mg PO BEDTIME sertraline 100 mg tablet 1 tab PO BEDTIME pramipexole 0.25 mg tablet 1 tab DAILY tizanidine 4 mg tablet 1 tab PO BEDTIME lidocaine [Lidoderm] 5 % adhesive patch,medicated 1 patch topical DAILY MDD remove after 12 hours PRN (Reason: pain) Qty: 30 0RF Rx Instructions: leave on most painful area for up to 12 hrs albuterol sulfate 90 mcg/actuation HFA aerosol inhaler 2 puff inhalation Q4-6H PRN (Reason: shortness of breath or wheezing) Qty: 6.7 0RF fluticasone propionate [Flonase Allergy Relief] 50 mcg/actuation spray,suspension 2 spray intranasal DAILY Qty: 16 0RF Rx Instructions: administer into each nostril metformin 500 mg tablet extended release 24 hr 500 mg PO BID hydrocodone-acetaminophen 5-325 mg tablet 1 tab PO Q4-6H PRN (Reason: pain) Qty: 5 0RF Rx Instructions: Partial Fill upon patient request. oxycodone 5 mg tablet 5 mg PO Q6H PRN (Reason: pain) Qty: 20 0RF Rx Instructions: Partial Fill upon patient request. acarbose 25 mg tablet 25 mg PO TID 30 Days Qty: 90 4RF hydrochlorothiazide 12.5 mg capsule 12.5 mg PO DAILY ferrous sulfate 325 mg (65 mg iron) tablet,delayed release (DR/EC) 325 mg PO DAILY pantoprazole 40 mg tablet,delayed release (DR/EC) 40 mg PO BID Qty: 60 6RF (DME) blood-glucose meter [FreeStyle Lite Meter] Kit See Rx Instructions .Route Qty: 1 0RF Rx Instructions: As directed test blood sugar two times a day cyanocobalamin (vitamin B-12) 1,000 mcg tablet 1,000 mcg PO QAM
[2022-10-31] MEDS: Morphine Sulfate 2 MG/ML CARTRIDGE IM (03:08)
== END 2022-10-31 03:26 | disposition home or self-care (01) ==
PROVIDERS: Emergency Provider Emergency Medicine
DX: S93.401A Sprain of unspecified ligament of right ankle, initial encounter (principal); X50.1XXA Overexertion from prolonged static or awkward postures, initial encounter; Y93.9 Activity, unspecified; Y92.9 Unspecified place or not applicable; Y99.9 Unspecified external cause status
CPT/HCPCS: 73610; 96372; 99284; J2270

== ENCOUNTER 2022-11-07 17:09 | Emergency (ER) | payer MEDICAID, SELFPAY ==
[2022-11-07 17:15] VITALS: BP 133/74; PULSE 95; RESP 18; TEMP 36.3; O2SAT 95; BMI 27.3
--- NOTE | 2022-11-07 17:22 | ED_ITS ---
HPI - Skin/Abscess/Foreign Bdy General Chief complaint: Skin/Abscess/Foreign Body Stated complaint: right ear abscess Time Seen by Provider: 11/07/22 17:34 Source: patient Mode of arrival: ambulatory Limitations: no limitations History of Present Illness HPI narrative: 61 year old female hx of recurrent abscess, hidradenitits supprativa presents w/ concerns she may have an abcess to right ear lobe X2 days. reports redness, pain and swelling to r. ear lobe. Denies trauma. Denies fevers, chills, cp, sob, tinnitus, headache, dizziness, sore throat. On doxycycline now for HS rx by Dr. Zambrano Related Data Home Medications Medication Instructions Recorded Confirmed hydrochlorothiazide 12.5 mg capsule 12.5 mg PO DAILY 05/09/20 09/07/22 hydroxyzine HCl 25 mg tablet 50 mg PO BEDTIME 06/04/20 09/07/22 pramipexole 0.25 mg tablet 1 tab DAILY 10/20/21 09/07/22 sertraline 100 mg tablet 1 tab PO BEDTIME 10/20/21 09/07/22 tizanidine 4 mg tablet 1 tab PO BEDTIME 10/20/21 09/07/22 ferrous sulfate 325 mg (65 mg 325 mg PO DAILY 06/01/22 09/07/22 iron) tablet,delayed release cyanocobalamin (vitamin B-12) 1,000 mcg PO QAM 06/03/22 09/07/22 1,000 mcg tablet metformin 500 mg tablet,extended 500 mg PO BID 06/03/22 09/07/22 release 24 hr Previous Rx's Medication Instructions Recorded cholecalciferol (vitamin D3) 50 50 mcg PO DAILY #30 caps 12/15/20 mcg (2,000 unit) capsule acarbose 25 mg tablet 25 mg PO TID 30 days #90 tabs 12/31/20 albuterol sulfate 90 mcg/actuation 2 puff inhalation Q4-6H PRN 06/21/21 aerosol inhaler shortness of breath or wheezing #6.7 grams fluticasone propionate 50 2 spray intranasal DAILY #16 grams 06/21/21 mcg/actuation nasal spray,suspension (Flonase Allergy Relief) blood-glucose meter (FreeStyle #1 ea 08/21/21 Lite Meter kit) blood sugar diagnostic (FreeStyle #150 strips 03/30/22 Lite Strips) thiamine HCl (vitamin B1) 100 mg 100 mg PO DAILY #90 tabs 06/07/22 tablet pantoprazole 40 mg tablet,delayed 40 mg PO BID #60 tabs 06/17/22 release lidocaine 5 % topical patch 1 patch topical DAILY PRN pain #30 08/13/22 (Lidoderm) ea hydrocodone 5 mg-acetaminophen 325 1 tab PO Q4-6H PRN pain #5 tabs 10/14/22 mg tablet hydrocodone 5 mg-acetaminophen 325 1 tab PO Q6H PRN pain #10 tabs 10/14/22 mg tablet oxycodone 5 mg tablet 5 mg PO Q6H PRN pain #20 tabs 10/19/22 oxycodone 5 mg tablet 5 mg PO BID PRN pain #5 tabs 10/31/22 clindamycin phosphate 1 % topical 1 appl topical BID #30 grams 11/07/22 gel cyclobenzaprine 10 mg tablet 10 mg PO TID PRN muscle spasm #10 11/10/22 tabs lidocaine 5 % topical patch 1 patch topical DAILY #15 ea 11/10/22 (Lidoderm) Allergies Allergy/AdvReac Type Severity Reaction Status Date / Time Penicillins Allergy Intermediate HIVES Verified 11/10/22 09:09 sulfamethoxazole Allergy Intermediate BLISTERS- Verified 11/10/22 09:09 [From BACTRIM] DELGADO - NERVE ENDINGS IN HAND/ERYTHEMA MULTIFORM trimethoprim [From BACTRIM] Allergy Intermediate BLISTERS- Verified 11/10/22 09:09 DELGADO - NERVE ENDINGS IN HAND/ERYTHEMA MULTIFORM latex [Latex] Allergy Mild RASH Verified 11/10/22 09:09 theophylline AdvReac Intermediate TACHYCARDIA Verified 11/10/22 09:09 TEGADERM Allergy Intermediate SKIN TEARS Uncoded 10/05/22 09:52 From COMPAZINE AdvReac Severe SEIZURES Uncoded 10/05/22 09:52 Review of Systems Review of Systems: Constitutional : No Weight loss, No Fever, No Chills, No Fatigue, No Malaise ENT/Mouth : No sore throat, No Rhinorrhea, + ear pain Eyes: No Eye Pain, No Swelling, No Redness Cardiovascular : No Chest Pain, No SOB, No Dyspnea on Exertion, No Orthopnea, No Edema, No Palpitations Respiratory : No Cough, No Sputum, No Wheezing Gastrointestinal : No Nausea, No Vomiting, No Diarrhea, No Constipation, No abdominal Pain, No Hematochezia, No Melena Genitourinary : No Dysuria, No Urinary Frequency, No Hematuria, Musculoskeletal : No joint pain, No Myalgias, No Joint Swelling Skin : No Skin Lesions, No rash Neuro : No Weakness, No Numbness, No Dizziness, No Headache Psych : No Anxiety/Panic, No Depression All other systems reviewed and are negative Yes all other systems are reviewed and are negative [facility] Past Medical History Attestation statement: The following information was validated with the patient. Source: old records reviewed and nursing notes reviewed Medical History Anastomotic ulcer Anxiety Asthma Borderline diabetes Depression Diabetes type 2, controlled DVT (deep venous thrombosis) Dyslipidemia GERD (gastroesophageal reflux disease) High cholesterol History of restless legs syndrome Non-toxic multinodular goiter Surgical History History of excision of epidermal inclusion cyst (03/23/22) History of excision of mass (10/26/21) History of hysterectomy History of removal of cyst (07/28/22) History of surgery History of surgery on left wrist History of tooth extraction Hx of cholecystectomy Hx of elbow surgery Hx of esophagogastroduodenoscopy Hx of excision of epidermal inclusion cyst (12/25/21) Hx of hand surgery S/P gastric bypass S/P trigger finger release Family History Family History Mother Diabetes mellitus CHF (congestive heart failure) Kidney failure Cervical cancer Brother No problems noted. Brother No problems noted. 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 Oriented X3.? No acute distress.? Head: Normocephalic, atraumatic, no step-offs or deformities Eyes: Pupils equal, round and reactive to light.? ENT: Pharynx normal.??+ TTP of right pinna w/ overlying cellulitis and slight indurated area in center, no flucuance. No pain with manipulation of external ears bilaterally. No mastoid tenderness. Neck: Normal inspection.? Neck supple.? CVS: Normal heart rate and rhythm.? Pulses normal.? Respiratory: No respiratory distress.? Breath sounds normal.? Abdomen: Soft and nontender.? Skin: Skin warm and dry.? Normal skin color.? Normal skin turgor.? Extremities: No lower extremity edema.? No calf ttp. 5/5 strength to bilateral upper and lower extremities Neuro: Oriented X 3.? No motor deficit.? No sensory deficit. CN 2-12 intact Course Reevaluation(s) Reevaluation #1: Will have her follow up with general surgery and PCP. Advised to return w/ new or worsening sx. Time: 17:26 Medical Decision Making Medical Decision Making [facility] Narrative: 1724 61 year old female presents w/ redness and swelling to pinna of right ear X2 days Pe w/ ?+ TTP of right pinna w/ overlying cellulitis and slight indurated area in center, no flucuance. No pain with manipulation of external ears bilaterally. No mastoid tenderness. Likley cellulitis. Unlikley abscess. No signs of necrotizing infection. Unlikley OM, OE, mastoiditis. 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 Plan- dx on doxy w/ warm compress instructions. Differential Diagnosis Differential Diagnoses: The differential diagnosis associated with the presentation includes Likley cellulitis. Unlikley abscess. No signs of necrotizing infection. Unlikley OM, OE, mastoiditis. 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 Admission/Observation Consideration of admission/observation: Escalation of care including admission/observation considered Prescription Management I considered prescription management with: Antibiotic Core Measures AMI core measures followed: Yes Measure exclusions: not indicated Critical Care Time Critical Care Time Critical Care Time: No Discharge Plan Discharge Clinical Impression: Cellulitis of right pinna Patient Disposition: Home, Self-Care Instructions: Cellulitis (ED) Additional Instructions: Take your medications as prescribed. If you were prescribed antibiotics today, it is important that you take your medication to their entirety, do not skip any doses, do not finish them early. Follow-up with your primary care provider this week. Follow up with general surgery Return to the emergency department with new or worsening symptoms. In case of emergency call 911 Apply warm compresses to the area Prescriptions: New clindamycin phosphate 1 % gel 1 appl topical BID Qty: 30 0RF No Action cholecalciferol (vitamin D3) 50 mcg (2,000 unit) capsule 50 mcg PO DAILY Qty: 30 11RF (DME) FreeStyle Lite Strips Strip See Rx Instructions .ROUTE .COMPLEX Qty: 150 6RF Dose Instruction: USE TO TEST BLOOD SUGAR TWICE DAILY Rx Instructions: USE TO TEST BLOOD SUGAR TWICE DAILY thiamine HCl (vitamin B1) 100 mg tablet 100 mg PO DAILY Qty: 90 3RF hydrocodone-acetaminophen 5-325 mg tablet 1 tab PO Q6H PRN (Reason: pain) Qty: 10 0RF Rx Instructions: Partial Fill upon patient request. hydroxyzine HCl 25 mg tablet 50 mg PO BEDTIME sertraline 100 mg tablet 1 tab PO BEDTIME pramipexole 0.25 mg tablet 1 tab DAILY tizanidine 4 mg tablet 1 tab PO BEDTIME lidocaine [Lidoderm] 5 % adhesive patch,medicated 1 patch topical DAILY MDD remove after 12 hours PRN (Reason: pain) Qty: 30 0RF Rx Instructions: leave on most painful area for up to 12 hrs albuterol sulfate 90 mcg/actuation HFA aerosol inhaler 2 puff inhalation Q4-6H PRN (Reason: shortness of breath or wheezing) Qty: 6.7 0RF fluticasone propionate [Flonase Allergy Relief] 50 mcg/actuation spray,suspension 2 spray intranasal DAILY Qty: 16 0RF Rx Instructions: administer into each nostril metformin 500 mg tablet extended release 24 hr 500 mg PO BID oxycodone 5 mg tablet 5 mg PO BID PRN (Reason: pain) Qty: 5 0RF Rx Instructions: Partial Fill upon patient request. hydrocodone-acetaminophen 5-325 mg tablet 1 tab PO Q4-6H PRN (Reason: pain) Qty: 5 0RF Rx Instructions: Partial Fill upon patient request. oxycodone 5 mg tablet 5 mg PO Q6H PRN (Reason: pain) Qty: 20 0RF Rx Instructions: Partial Fill upon patient request. cyclobenzaprine 10 mg tablet 10 mg PO TID PRN (Reason: muscle spasm) Qty: 10 0RF lidocaine [Lidoderm] 5 % adhesive patch,medicated 1 patch topical DAILY Qty: 15 0RF Rx Instructions: leave on most painful area for up to 12 hrs acarbose 25 mg tablet 25 mg PO TID 30 Days Qty: 90 4RF hydrochlorothiazide 12.5 mg capsule 12.5 mg PO DAILY ferrous sulfate 325 mg (65 mg iron) tablet,delayed release (DR/EC) 325 mg PO DAILY pantoprazole 40 mg tablet,delayed release (DR/EC) 40 mg PO BID Qty: 60 6RF (DME) blood-glucose meter [FreeStyle Lite Meter] Kit See Rx Instructions .Route Qty: 1 0RF Rx Instructions: As directed test blood sugar two times a day cyanocobalamin (vitamin B-12) 1,000 mcg tablet 1,000 mcg PO QAM Referrals: [facility] General Surgeons [Provider Group] - 2 days Center[facility] [Primary Care Provider] - 2 days Stand Alone Forms: Work/School Release Interventions: ED Discharge Assessment Last Done: 11/07/22 17:49 Discharge Date/Time: 11/07/22 17:49
== END 2022-11-07 17:49 | disposition home or self-care (01) ==
LOC: HO.ED 17:39
PROVIDERS: Emergency Provider Student in an Organized Health Care Education/Training Program
DX: H60.11 Cellulitis of right external ear (principal); F17.210 Nicotine dependence, cigarettes, uncomplicated; Z71.6 Tobacco abuse counseling
CPT/HCPCS: 99282

== ENCOUNTER 2022-11-10 08:36 | Emergency (ER) | payer MEDICAID, SELFPAY ==
[2022-11-10 09:06] VITALS: BP 130/80; PULSE 78; RESP 16; TEMP 36.7; O2SAT 98; BMI 27.3
--- NOTE | 2022-11-10 09:37 | ED_ITS ---
HPI - Back Pain/Injury General Chief Complaint: Back Pain/Injury Stated Complaint: Neck Back Pain No Injury Time Seen by Provider: 11/10/22 09:12 Source: patient Mode of arrival: ambulatory Limitations: no limitations History of Present Illness HPI Narrative: 61-year-old female with a past medical history of diabetes, asthma, anxiety, depression, HLD, GERD here with acute on chronic back pain the last 4 days. Jair oakley reports she has a history of chronic back pain. She is seen by pain management at [facility]. She has had several cortisone injections with continued pain. She tells me that she has had previous back surgery about 5 years ago but has no hardware in place. She did follow-up with her spine surgeon this here and was referred to Pain Management for further evaluation. Patient reports that she went there this morning and was seen and at this point they do not feel that they can offer her any additional services and so she was referred into the emergency room for further evaluation. Patient reports she takes oxycodone 5 mg every 6 hours for pain at home. She does have a pain contract with pain management. She also supplements with Tylenol. She denies any new fall or injury. Patient describes pain and her lower back which radiates up her spine into her neck and down her left leg with numbness and tingling. She has no numbness in her groin, no bowel or bladder incontinence. No fevers or chills. Patient is ambulatory Related Data Home Medications Medication Instructions Recorded Confirmed hydrochlorothiazide 12.5 mg capsule 12.5 mg PO DAILY 05/09/20 09/07/22 hydroxyzine HCl 25 mg tablet 50 mg PO BEDTIME 06/04/20 09/07/22 pramipexole 0.25 mg tablet 1 tab DAILY 10/20/21 09/07/22 sertraline 100 mg tablet 1 tab PO BEDTIME 10/20/21 09/07/22 tizanidine 4 mg tablet 1 tab PO BEDTIME 10/20/21 09/07/22 ferrous sulfate 325 mg (65 mg 325 mg PO DAILY 06/01/22 09/07/22 iron) tablet,delayed release cyanocobalamin (vitamin B-12) 1,000 mcg PO QAM 06/03/22 09/07/22 1,000 mcg tablet metformin 500 mg tablet,extended 500 mg PO BID 06/03/22 09/07/22 release 24 hr Previous Rx's Medication Instructions Recorded cholecalciferol (vitamin D3) 50 50 mcg PO DAILY #30 caps 12/15/20 mcg (2,000 unit) capsule acarbose 25 mg tablet 25 mg PO TID 30 days #90 tabs 12/31/20 albuterol sulfate 90 mcg/actuation 2 puff inhalation Q4-6H PRN 06/21/21 aerosol inhaler shortness of breath or wheezing #6.7 grams fluticasone propionate 50 2 spray intranasal DAILY #16 grams 06/21/21 mcg/actuation nasal spray,suspension (Flonase Allergy Relief) blood-glucose meter (FreeStyle #1 ea 08/21/21 Lite Meter kit) blood sugar diagnostic (FreeStyle #150 strips 03/30/22 Lite Strips) thiamine HCl (vitamin B1) 100 mg 100 mg PO DAILY #90 tabs 06/07/22 tablet pantoprazole 40 mg tablet,delayed 40 mg PO BID #60 tabs 06/17/22 release lidocaine 5 % topical patch 1 patch topical DAILY PRN pain #30 08/13/22 (Lidoderm) ea hydrocodone 5 mg-acetaminophen 325 1 tab PO Q4-6H PRN pain #5 tabs 10/14/22 mg tablet hydrocodone 5 mg-acetaminophen 325 1 tab PO Q6H PRN pain #10 tabs 10/14/22 mg tablet oxycodone 5 mg tablet 5 mg PO Q6H PRN pain #20 tabs 10/19/22 oxycodone 5 mg tablet 5 mg PO BID PRN pain #5 tabs 10/31/22 clindamycin phosphate 1 % topical 1 appl topical BID #30 grams 11/07/22 gel cyclobenzaprine 10 mg tablet 10 mg PO TID PRN muscle spasm #10 11/10/22 tabs lidocaine 5 % topical patch 1 patch topical DAILY #15 ea 11/10/22 (Lidoderm) Allergies Allergy/AdvReac Type Severity Reaction Status Date / Time Penicillins Allergy Intermediate HIVES Verified 11/10/22 09:09 sulfamethoxazole Allergy Intermediate BLISTERS- Verified 11/10/22 09:09 [From BACTRIM] DELGADO - NERVE ENDINGS IN HAND/ERYTHEMA MULTIFORM trimethoprim [From BACTRIM] Allergy Intermediate BLISTERS- Verified 11/10/22 09:09 DELGADO - NERVE ENDINGS IN HAND/ERYTHEMA MULTIFORM latex [Latex] Allergy Mild RASH Verified 11/10/22 09:09 theophylline AdvReac Intermediate TACHYCARDIA Verified 11/10/22 09:09 TEGADERM Allergy Intermediate SKIN TEARS Uncoded 10/05/22 09:52 From COMPAZINE AdvReac Severe SEIZURES Uncoded 10/05/22 09:52 Review of Systems Review of Systems: Yes all other systems are reviewed and are negative Constitutional: Constitutional: Reports no additional constitutional complaints, Denies body ache(s), Denies chills, Denies fever(s), Denies headache(s) and Denies weakness Eyes: Eyes: Reports no additional eye complaints and Denies change in vision ENT: Reports system reviewed and no additional complaints, except as documented, Denies dizziness, Denies headache(s), Denies nasal congestion, Denies nasal discharge and Reports neck pain Cardiovascular: Cardiovascular: Reports no additional cardiovascular complaints, Denies chest pain, Denies leg edema and Denies dyspnea Respiratory: Respiratory: Reports no additional respiratory complaints, Denies cough and Denies dyspnea Gastrointestinal: Gastrointestinal: Reports no additional gastrointestinal complaints, Denies abdominal pain, Denies diarrhea, Denies nausea and Denies vomiting Genitourinary: Genitourinary: Reports no additional female genitourinary complaints and Denies urinary incontinence Musculoskeletal: Musculoskeletal: Reports no additional musculoskeletal complaints, Denies back pain, Denies arthralgias, Denies joint swelling, Reports neck pain, Denies numbness, Reports radiating pain into limb and Denies tingling Integumentary/Breasts: Skin/Breast: Reports system reviewed and no additional complaints, except as docu and Denies rash Neurologic: Reports system reviewed and no additional complaints, except as documented, Denies Abnormal speech present, Denies dizziness, Denies headache(s), Denies numbness, Denies tingling and Denies weakness [facility] Past Medical History Attestation statement: The following information was validated with the patient. Source: old records reviewed and nursing notes reviewed Medical History Anastomotic ulcer Anxiety Asthma Borderline diabetes Depression Diabetes type 2, controlled DVT (deep venous thrombosis) Dyslipidemia GERD (gastroesophageal reflux disease) High cholesterol History of restless legs syndrome Non-toxic multinodular goiter Surgical History History of excision of epidermal inclusion cyst (03/23/22) History of excision of mass (10/26/21) History of hysterectomy History of removal of cyst (07/28/22) History of surgery History of surgery on left wrist History of tooth extraction Hx of cholecystectomy Hx of elbow surgery Hx of esophagogastroduodenoscopy Hx of excision of epidermal inclusion cyst (12/25/21) Hx of hand surgery S/P gastric bypass S/P trigger finger release Family History Family History Mother Diabetes mellitus CHF (congestive heart failure) Kidney failure Cervical cancer Brother No problems noted. Brother No problems noted. 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 Physical Exam Vital Signs: Vital Signs: Last Vital Signs Temp 98.0 F 11/10/22 09:06 Pulse 78 11/10/22 09:06 Resp 16 11/10/22 09:06 BP 130/80 11/10/22 09:06 Pulse Ox 98 11/10/22 09:06 O2 Del Method Room Air 11/10/22 09:06 BMI result Body Mass Index 27.3 Const: General: cooperative, healthy appearing, comfortable and no acute distress Orientation/consciousness: patient oriented x3 Limitations: no limitations HEENT: Head: Yes normal to inspection Ears: hearing grossly normal bilat erally General nose exam: Normal external nose present Face and sinus: Yes normal facial exam Mouth: Normal oral and palatal mucosa present Throat: Yes posterior oropharynx normal Eyes: General: appearance normal, both eyes and all related structures Pupils: Equal, round and reactive pupils present Neck: Neck: Yes normal visual inspection Chest: Chest palpation & inspection: normal inspection of the chest Resp: Effort & Inspection: normal respiratory effort Auscultation: clear to auscultation bilaterally Cardio: Rate: regular rate Rhythm: regular rhythm Peripheral pulses: Peripheral pulses 2+ throughout GI: Inspection: Yes normal to inspection Palpation (GI): Soft to palpation and nontender Auscultation: normal bowel sounds Back/Spine/Pelvis: Other: There is tenderness to the entire lumbar, thoracic and cervical spine with no step-offs or deformities. This is worsened with flexion of the spine and straight leg raise of both lower extremities Thoracic/Lumbar Spine: thoracic and lumbar spine normal to inspection Skin: General skin exam: no rashes or lesions noted Neuro: General: patient oriented x3, moves all extremities, no focal motor deficits and normal sensation to monofilament Cranial nerves: Yes CN's II-XII intact bilaterally, Yes Equal, round and reactive pupils present, Yes Bilaterally intact EOM present, Yes Nystagmus not present, Yes Normal facial strength present and Yes Midline tongue present Cognition (Neuro): normal cognition Speech: No Abnormal speech present Gait exam (Neuro): Normal gait present Motor exam (neuro): 5/5 motor strength present throughout Sensory Exam: Normal double simultaneous stimulation for sensation Deep tendon reflexes (DTR's): Right patellar reflex intensity grade: 2+ and Left patellar reflex intensity grade: 2+ Extrem: General: Yes normal to inspection Course Course Course Narrative: Patient reports pain feels improved. She is up and ambulatory to the bathroom with a steady gait. I recommend that she follow up outpatient with her spinal surgeon. She can continue her oxycodone at home. We will add a low-dose muscle relaxant medicated patches. Reviewed worrisome signs and symptoms when to return to the emergency room. Comfortable plan for discharge home Medications Administered Discontinued Medications Generic Name Dose Route Start Last Admin Trade Name Freq PRN Reason Stop Dose Admin Cyclobenzaprine HCl 10 mg 11/10/22 09:32 11/10/22 09:39 Cyclobenzaprine Hcl 10 Mg Tablet PO 11/10/22 09:33 10 mg ONCE ONE Administration Ketorolac Tromethamine 30 mg 11/10/22 09:32 11/10/22 09:39 Ketorolac Tromethamine 30 Mg/Ml Vial IM 11/10/22 09:33 30 mg ONCE ONE Administration Oxycodone HCl 10 mg 11/10/22 09:32 11/10/22 09:39 Oxycodone Hcl Immed Release 5 Mg Tablet PO 11/10/22 09:33 10 mg ONCE ONE Administration Medical Decision Making Medical Decision Making [facility] Narrative: 61-year-old female here with complaints of acute on chronic back pain which radiates the lower back up to the cervical spine and down the left leg with reported numbness and tingling of the entire left leg with no new injury or trauma. Patient has a history of chronic back pain, followed by pain management, her back surgeon, and on a pain contract for oxycodone 5 mg every 6 hours. On exam patient went tenderness of the entire spine which is worsened with flexion of the spine and movement of lower extremities. No overt neurological deficits or red flag symptoms. Patient is ambulatory Patient reports she was seen by pain management this morning and referred into the ER for further evaluation and management of her pain. Patient will be given Toradol IM, oral oxycodone (has not taken her dose this morning), flexeril Differential Diagnosis Differential Diagnoses: The differential diagnosis associated with the presentation includes Less likely epidural abscess, cord compression, cauda equina, renal colic, pyelonephritis, AAA Discharge Plan Discharge Clinical Impression: Acute lumbar radiculopathy Patient Disposition: Home, Self-Care Instructions: Lumbar Radiculopathy (ED) Additional Instructions: Please call your spine surgeon to follow-up Heat or ice Gentle stretching No heavy lifting or bending continue oxycodone Return to the ER for incontinence of urine or stool, numbness in the groin, fever >100.4 Prescriptions: New cyclobenzaprine 10 mg tablet 10 mg PO TID PRN (Reason: muscle spasm) Qty: 10 0RF lidocaine [Lidoderm] 5 % adhesive patch,medicated 1 patch topical DAILY Qty: 15 0RF Rx Instructions: leave on most painful area for up to 12 hrs No Action cholecalciferol (vitamin D3) 50 mcg (2,000 unit) capsule 50 mcg PO DAILY Qty: 30 11RF (DME) FreeStyle Lite Strips Strip See Rx Instructions .ROUTE .COMPLEX Qty: 150 6RF Dose Instruction: USE TO TEST BLOOD SUGAR TWICE DAILY Rx Instructions: USE TO TEST BLOOD SUGAR TWICE DAILY thiamine HCl (vitamin B1) 100 mg tablet 100 mg PO DAILY Qty: 90 3RF hydrocodone-acetaminophen 5-325 mg tablet 1 tab PO Q6H PRN (Reason: pain) Qty: 10 0RF Rx Instructions: Partial Fill upon patient request. hydroxyzine HCl 25 mg tablet 50 mg PO BEDTIME sertraline 100 mg tablet 1 tab PO BEDTIME pramipexole 0.25 mg tablet 1 tab DAILY tizanidine 4 mg tablet 1 tab PO BEDTIME lidocaine [Lidoderm] 5 % adhesive patch,medicated 1 patch topical DAILY MDD remove after 12 hours PRN (Reason: pain) Qty: 30 0RF Rx Instructions: leave on most painful area for up to 12 hrs albuterol sulfate 90 mcg/actuation HFA aerosol inhaler 2 puff inhalation Q4-6H PRN (Reason: shortness of breath or wheezing) Qty: 6.7 0RF fluticasone propionate [Flonase Allergy Relief] 50 mcg/actuation spray, suspension 2 spray intranasal DAILY Qty: 16 0RF Rx Instructions: administer into each nostril metformin 500 mg tablet extended release 24 hr 500 mg PO BID oxycodone 5 mg tablet 5 mg PO BID PRN (Reason: pain) Qty: 5 0RF Rx Instructions: Partial Fill upon patient request. hydrocodone-acetaminophen 5-325 mg tablet 1 tab PO Q4-6H PRN (Reason: pain) Qty: 5 0RF Rx Instructions: Partial Fill upon patient request. oxycodone 5 mg tablet 5 mg PO Q6H PRN (Reason: pain) Qty: 20 0RF Rx Instructions: Partial Fill upon patient request. clindamycin phosphate 1 % gel 1 appl topical BID Qty: 30 0RF acarbose 25 mg tablet 25 mg PO TID 30 Days Qty: 90 4RF hydrochlorothiazide 12.5 mg capsule 12.5 mg PO DAILY ferrous sulfate 325 mg (65 mg iron) tablet,delayed release (DR/EC) 325 mg PO DAILY pantoprazole 40 mg tablet,delayed release (DR/EC) 40 mg PO BID Qty: 60 6RF (DME) blood-glucose meter [FreeStyle Lite Meter] Kit See Rx Instructions .Route Qty: 1 0RF Rx Instructions: As directed test blood sugar two times a day cyanocobalamin (vitamin B-12) 1,000 mcg tablet 1,000 mcg PO QAM Referrals: Joyce Tapia MD [Primary Care Provider] - 1 week Interventions: ED Discharge Assessment Last Done: 11/10/22 11:54 Discharge Date/Time: 11/10/22 11:54
[2022-11-10] MEDS: Ketorolac Tromethamine 30 MG/ML VIAL IM (09:39)
[2022-11-10] MEDS: Cyclobenzaprine HCl 10 MG TABLET PO (09:39)
[2022-11-10] MEDS: oxyCODONE HCl Immed Release 5 MG TABLET 10 MG PO (09:39)
== END 2022-11-10 11:54 | disposition home or self-care (01) ==
PROVIDERS: Emergency Provider Emergency Medicine Emergency Medical Services; PCP Student in an Organized Health Care Education/Training Program
DX: M54.16 Radiculopathy, lumbar region (principal); G89.29 Other chronic pain; M54.50 Low back pain, unspecified; Z79.891 Long term (current) use of opiate analgesic; Z79.84 Long term (current) use of oral hypoglycemic drugs; Z79.899 Other long term (current) drug therapy
CPT/HCPCS: 96372; 99283; 99284; J1885

== ENCOUNTER 2022-12-18 20:15 | Emergency (ER) | payer MEDICAID, SELFPAY ==
--- NOTE | ~2022-12-18 | CT_ITS ---
EXAMINATION: CT ABDOMEN AND PELVIS WITH CONTRAST CLINICAL INFORMATION: Abdominal pain for one week COMPARISON: 07/20/2022 TECHNIQUE: Multidetector volumetric images were obtained from the superior aspect of the liver through the pubic symphysis following administration 85 mL of Omnipaque 350 intravenous contrast. Sagittal and coronal reformatted images were obtained on the technologist's workstation. Oral contrast: Yes This CT examination was performed using dose optimization techniques as appropriate, variously including the following: *Automated exposure control *Adjustment of mA and/or kV according to patient size (this includes techniques or standardized protocols for targeted exams where dose is matched to indication/reason for exam; i.e. extremities or head) *Use of iterative reconstruction technique DLP: 491 mGy-cm FINDINGS: LUNG BASES: The visualized lung bases are unremarkable. LIVER, GALLBLADDER, AND BILIARY TREE: The liver is normal in size, shape, and attenuation. No focal hepatic lesion or biliary ductal dilatation is present. Cholecystectomy. PANCREAS: Unremarkable. SPLEEN: Unremarkable. ADRENAL GLANDS: Unremarkable. KIDNEYS AND URETERS: The kidneys are normal in size, shape, and attenuation. No hydronephrosis, hydroureter, or calculi seen. No perinephric stranding. BLADDER: Unremarkable. GASTROINTESTINAL TRACT: José Manuel-en-Y gastrojejunostomy. No intestinal obstruction or inflammation. There does appear to be contrast within the excluded stomach, as well as throughout the small bowel more distally, and ascending and transverse colon. Scattered colonic diverticula without evidence of diverticulitis. Normal appendix. ABDOMINAL WALL: No significant hernia is appreciated. LYMPH NODES: Normal. VASCULAR: Unremarkable. PELVIC VISCERA: Hysterectomy. No adnexal abnormalities. OSSEOUS STRUCTURES: Unremarkable. CT/CT abdomen pelvis w IV con IMPRESSION: * Status post José Manuel-en-Y gastrojejunostomy. There does appear to be contrast within the excluded stomach, raising the possibility of a gastrogastric fistula. Retrograde reflux from the José Manuel limb into the biliopancreatic limb all the way to the stomach is considered unlikely. Consider upper GI series to confirm and surgical consultation. * No evidence of bowel obstruction. * Scattered colonic diverticula without evidence of diverticulitis. * Cholecystectomy and hysterectomy. This result was discussed with Dr Jones at 12/19/2022 3:25 AM and it was ascertained that the content and urgency of the report was understood at the time of direct communication.
[2022-12-18 20:17] VITALS: BP 144/76; PULSE 86; RESP 18; TEMP 36.6; O2SAT 97; BMI 27.3
--- NOTE | 2022-12-18 20:18 | ED.GENADULT ---
HPI - General Adult General Chief complaint: Nausea/Vomiting/Diarrhea Stated complaint: earache, stomach issues Time Seen by Provider: 12/18/22 22:27 Source: patient Mode of arrival: ambulatory Limitations: no limitations History of Present Illness HPI narrative: 62-year-old female who presents emergency department for evaluation of epigastric pain, nausea, vomiting, unable to hold down solid foods. The patient had a gastric bypass and hiatal hernia repair done 4 years prior which she states was complicated by a bleeding ulcer. She states that over the last 8 months she has been having epigastric pain and difficulty eating. She states that she has had frequent episodes of vomiting. Over the past week she states that her symptoms have gotten worse. She is able to drink liquids without vomiting but any time she eats solid foods she vomits. She points to her epigastric area and states that she has a constant, cramping pain which is 8/10 at its worst. She states she has been feeling very weak over the past week as well. She states that any time she eats solid foods she vomits and this also causes her to go to her bowel, she has not had diarrhea but has formed stools. States that she had an endoscopy 1 year prior by her bariatric surgeon and was told that she had a gastric ulcer she has been taking pantoprazole and Carafate since that time Patient also complains bilateral your pain she describes this as a constant buzzing sensation and room spinning dizziness, she states that this is been going on for months and she is waiting to be seen by an coding and reimbursement specialist. Related Data Home Medications Medication Instructions Recorded Confirmed hydrochlorothiazide 12.5 mg capsule 12.5 mg PO DAILY 05/09/20 09/07/22 hydroxyzine HCl 25 mg tablet 50 mg PO BEDTIME 06/04/20 09/07/22 pramipexole 0.25 mg tablet 1 tab DAILY 10/20/21 09/07/22 sertraline 100 mg tablet 1 tab PO BEDTIME 10/20/21 09/07/22 tizanidine 4 mg tablet 1 tab PO BEDTIME 10/20/21 09/07/22 ferrous sulfate 325 mg (65 mg 325 mg PO DAILY 06/01/22 09/07/22 iron) tablet,delayed release cyanocobalamin (vitamin B-12) 1,000 mcg PO QAM 06/03/22 09/07/22 1,000 mcg tablet metformin 500 mg tablet,extended 500 mg PO BID 06/03/22 09/07/22 release 24 hr Previous Rx's Medication Instructions Recorded cholecalciferol (vitamin D3) 50 50 mcg PO DAILY #30 caps 12/15/20 mcg (2,000 unit) capsule acarbose 25 mg tablet 25 mg PO TID 30 days #90 tabs 12/31/20 albuterol sulfate 90 mcg/actuation 2 puff inhalation Q4-6H PRN 06/21/21 aerosol inhaler shortness of breath or wheezing #6.7 grams fluticasone propionate 50 2 spray intranasal DAILY #16 grams 06/21/21 mcg/actuation nasal spray,suspension (Flonase Allergy Relief) blood-glucose meter (FreeStyle #1 ea 08/21/21 Lite Meter kit) blood sugar diagnostic (FreeStyle #150 strips 03/30/22 Lite Strips) thiamine HCl (vitamin B1) 100 mg 100 mg PO DAILY #90 tabs 06/07/22 tablet pantoprazole 40 mg tablet,delayed 40 mg PO BID #60 tabs 06/17/22 release lidocaine 5 % topical patch 1 patch topical DAILY PRN pain #30 08/13/22 (Lidoderm) ea hydrocodone 5 mg-acetaminophen 325 1 tab PO Q4-6H PRN pain #5 tabs 10/14/22 mg tablet hydrocodone 5 mg-acetaminophen 325 1 tab PO Q6H PRN pain #10 tabs 10/14/22 mg tablet oxycodone 5 mg tablet 5 mg PO Q6H PRN pain #20 tabs 10/19/22 oxycodone 5 mg tablet 5 mg PO BID PRN pain #5 tabs 10/31/22 clindamycin phosphate 1 % topical 1 appl topical BID #30 grams 11/07/22 gel cyclobenzaprine 10 mg tablet 10 mg PO TID PRN muscle spasm #10 11/10/22 tabs lidocaine 5 % topical patch 1 patch topical DAILY #15 ea 11/10/22 (Lidoderm) Allergies Allergy/AdvReac Type Severity Reaction Status Date / Time Penicillins Allergy Intermediate HIVES Verified 11/10/22 09:09 sulfamethoxazole Allergy Intermediate BLISTERS- Verified 11/10/22 09:09 [From BACTRIM] DELGADO - NERVE ENDINGS IN HAND/ERYTHEMA MULTIFORM trimethoprim [From BACTRIM] Allergy Intermediate BLISTERS- Verified 11/10/22 09:09 DELGADO - NERVE ENDINGS IN HAND/ERYTHEMA MULTIFORM latex [Latex] Allergy Mild RASH Verified 11/10/22 09:09 theophylline AdvReac Intermediate TACHYCARDIA Verified 11/10/22 09:09 TEGADERM Allergy Intermediate SKIN TEARS Uncoded 10/05/22 09:52 From COMPAZINE AdvReac Severe SEIZURES Uncoded 10/05/22 09:52 Review of Systems Review of Systems: Yes all other systems are reviewed and are negative [facility] Past Medical History [facility] Narrative: Social history: Patient does smoke cigarettes. She denies alcohol use. She denies. Medical History Anastomotic ulcer Anxiety Asthma Borderline diabetes Depression Diabetes type 2, controlled DVT (deep venous thrombosis) Dyslipidemia GERD (gastroesophageal reflux disease) High cholesterol History of restless legs syndrome Non-toxic multinodular goiter Surgical History History of excision of epidermal inclusion cyst (03/23/22) History of excision of mass (10/26/21) History of hysterectomy History of removal of cyst (07/28/22) History of surgery History of surgery on left wrist History of tooth extraction Hx of cholecystectomy Hx of elbow surgery Hx of esophagogastroduodenoscopy Hx of excision of epidermal inclusion cyst (12/25/21) Hx of hand surgery S/P gastric bypass S/P trigger finger release Family History Family History Mother Diabetes mellitus CHF (congestive heart failure) Kidney failure Cervical cancer Brother No problems noted. Brother No problems noted. 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 Physical Exam ED Vital Signs: Vital Signs - 24 hr 12/18/22 20:17 Temperature 98 F Pulse Rate 86 Respiratory Rate 18 Blood Pressure 144/76 H Pulse Oximetry 97 Oxygen Delivery Method Room Air BMI result Body Mass Index 27.3 Const Other: Awake, alert, female patient, very pleasant cooperative, does not appear to be in distress, answers all questions appropriately [facility] Head: Yes normal to inspection, Yes normocephalic and Yes atraumatic Ears: external ears normal General nose exam: Normal external nose present Face and sinus: Yes normal facial exam Mouth: Normal oral and palatal mucosa present Throat: Yes posterior oropharynx normal Eyes General: appearance normal, both eyes and all related structures Pupils: Equal, round and reactive pupils present Neck Neck: Yes normal visual inspection, Yes no lymphadenopathy, Yes trachea midline and Yes supple Chest Chest palpation & inspection: normal inspection of the chest and normal palpation of entire chest wall Resp Effort & Inspection: normal respiratory effort and able to speak in complete sentences Auscultation: clear to auscultation bilaterally Cardio Rate: regular rate Rhythm: regular rhythm Heart sounds: S1 normal heart sound present, S2 normal heart sound present and no murmurs GI Other: Patient's abdomen is nondistended, she has normoactive bowel sounds, she has moderate epigastric tenderness with no rebound, no voluntary or involuntary guarding General: Yes no CVA tenderness Back/Spine/Pelvis Back: no CVA tenderness Skin General skin exam: no rashes or lesions noted Neuro Cranial nerves: Yes CN's II-XII intact bilaterally and Yes Equal, round and reactive pupils present Cognition (Neuro): normal cognition Motor exam (neuro): 5/5 motor strength present throughout Extrem General: Yes normal to inspection Psych Appearance: grossly normal Speech and movement: Normal speech and movement present Affect: normal affect Attitude: cooperative Course Course Course Narrative: This is an RME: Additional HPI, ROS, PE not included below will be deferred to primary provider. 62-year-old female history of bariatric surgery 4 years presents to the emergency complaints of nausea, vomiting, inability to keep down p.o., and epigastric pain for the past few days, reports everything she eats she vomits. Last tried to eat a banana and rhythm. Patient also complaining of ear pain, patient has ear pain chronically and is currently on a wait list to see an ears nose and throat doctor, reporting severe bilateral ear pain. Patient also reports associated fatigue and malaise. Plan labs, urine. Medications Administered Discontinued Medications Generic Name Dose Route Start Last Admin Trade Name Thomas PRN Reason Stop Dose Admin Diatrizoate Meglum/Diatrizoate Sod 30 ml 12/19/22 02:16 12/19/22 02:17 Diatrizoate Meglumine, Sodium 30 Ml Solution PO 12/19/22 02:17 30 ml ONCE ONE Administration Lactated Ringer's 1,000 mls @ 999 mls/hr 12/18/22 22:45 12/19/22 01:00 Lr IV 12/18/22 23:45 Infused .Q1H1M CHARITY Infusion Iohexol 85 ml 12/19/22 02:18 12/19/22 02:18 Iohexol 350 Mg/Ml 100 Ml Infus..Btl IV 12/19/22 02:19 85 ml ONCE ONE Administration Morphine Sulfate 4 mg 12/18/22 22:42 12/18/22 23:00 Morphine Sulfate 4 Mg/Ml Cartridge IVPUSH 12/18/22 22:43 4 mg ONCE STA Administration Protocol Morphine Sulfate 4 mg 12/19/22 00:48 12/19/22 01:01 Morphine Sulfate 4 Mg/Ml Cartridge IVPUSH 12/19/22 00:49 4 mg ONCE STA Administration Protocol Ondansetron HCl 4 mg 12/18/22 22:42 12/18/22 23:00 Ondansetron Hcl 4 Mg/2 Ml Vial IVPUSH 12/18/22 22:43 4 mg ONCE ONE Administration Medical Decision Making Medical Decision Making [facility] Narrative: 62-year-old female with history of diabetes mellitus, hypertension, GERD, asthma, gastric bypass surgery, hiatal hernia repair, anastomosis ulcer the presents to emergency depart for evaluation of epigastric abdominal pain x1 week with inability to eat solid foods which causes vomiting and bowel movements. Vital signs revealed an elevated blood pressure of 144/76 otherwise unremarkable . physical examination did reveal epigastric tenderness otherwise was unremarkable pain. Following tests were ordered: CBC, comprehensive metabolic panel, magnesium, lipase, CT scan of the abdomen pelvis with IV and oral contrast. I ordered morphine 4 mg IV and Zofran 4 mg IV to treat her abdominal pain , nausea and vomiting. She is also ordered to get lactated Ringer's x1 L IV. 2253: My independent interpretation of the patient's laboratory evaluation is as follows: CBC was normal. CMP was normal except for an elevated glucose of 145. 0428: The CT scan of the patient's abdomen pelvis with IV contrast and oral contrast did reveal that the contrast went all the way through with no obvious bowel obstruction however contrast went into the excluded stomach. I did discuss this finding with the radiologist and he was concerned that the patient either had reflux of the contrast which that was unlikely or that the patient may have a fistula. I did discuss this finding with the physician speech assistant Mona Abad covering the bariatric surgical service. She recommended the patient be discharged home. The patient is to stay on a liquid diet and drink at least 3 protein shakes a day. The patient is to contact the office on Tuesday morning for follow-up next week to schedule an endoscopy. The patient was discharged home. Differential Diagnosis Differential diagnosis includes but is not limited to bowel obstruction, gastritis, ulcer, esophageal stricture, electrolyte abnormalities, anemia Admission/Observation Consideration of admission/observation: Escalation of care including admission/observation considered Lab Data MDM Lab Attestation statement: I reviewed the patient's lab results. 12/18/22 20:53 12/18/22 20:53 Labs: Lab Results 12/18/22 12/18/22 Range/Units 20:53 20:53 WBC 7.3 (4.8-10.8) X10*3/uL RBC 4.32 (4.20-5.50) X10*6/uL Hgb 12.5 (12.0-16.0) g/dl Hct 37.1 (37.0-47.0) % MCV 85.9 (80.0-98.0) fL MCH 28.9 (27.0-33.0) pg MCHC 33.7 (31.0-35.0) g/dl RDW 12.6 (11.0-16.0) % Plt Count 200 (160-400) X10*3/uL MPV 9.8 (9.4-12.3) fL Immature Gran % (Auto) 0.1 (0.0-0.4) % Neut % (Auto) 58.7 (45-73) % Lymph % (Auto) 31.4 (20-40) % [place] % (Auto) 6.2 (2-11) % Eos % (Auto) 3.3 (0-4) % Baso % (Auto) 0.3 (0-2) % Lymph # (Auto) 2.3 (1.2-4.9) X10*3/uL [place] # (Auto) 0.5 (0.1-1.2) X10*3/uL Eos # (Auto) 0.2 (0.0-0.4) X10*3/uL Baso # (Auto) 0.0 (0.0-0.2) X10*3/uL Abs Immat Gran (auto) 0.01 (0.00-0.03) X10*3/uL Absolute Neuts (auto) 4.3 (2.0-8.3) x10*3/uL Absolute Nucleated RBC 0.000 (0.0-0.012) X10*3/uL Nucleated RBC % (auto) 0.0 (0.0-0.2) /100WBC Sodium 141 (135-145) mmol/L Potassium 3.5 (3.3-5.1) mmol/L Chloride 104 (96-108) mmol/L Carbon Dioxide 27 (22-29) mmol/L Anion Gap 14 (12-20) BUN 17 H (9-16) mg/dL Creatinine 0.96 (0.5-1.4) mg/dL Estim Creat Clear Calc 58.4 Estimated GFR 59 Random Glucose 145 H (60-115) mg/dL Calcium 9.2 (8.4-10.2) mg/dL Magnesium 2.1 (1.6-2.6) mg/dL Total Bilirubin 0.4 (0.0-1.0) mg/dL AST 14 (5-31) U/L ALT 15 (0-31) U/L Alkaline Phosphatase 76 (39-117) U/L Total Protein 6.4 L (6.5-8.0) g/dL Albumin 3.8 (3.5-5.0) g/dL Lipase 17 (8-78) U/L Radiology Impression Discussion of test interpretation with radiology: I discussed test interpretation with the radiologist Radiologist Impression: CT abdomen pelvis w IV con IMPRESSION: * Status post José Manuel-en-Y gastrojejunostomy. There does appear to be contrast within the excluded stomach, raising the possibility of a gastrogastric fistula. Retrograde reflux from the José Manuel limb into the biliopancreatic limb all the way to the stomach is considered unlikely. Consider upper GI series to confirm and surgical consultation. * No evidence of bowel obstruction. * Scattered colonic diverticula without evidence of diverticulitis. * Cholecystectomy and hysterectomy. This result was discussed with Dr Jones at 12/19/2022 3:25 AM and it was ascertained that the content and urgency of the report was understood at the time of direct communication. Dictated By:Cleveland Smith MD Discharge Plan Discharge Clinical Impression: Abdominal pain Qualifiers: Abdominal location: epigastric Qualified Code(s): R10.13 - Epigastric pain Patient Disposition: Home, Self-Care Additional Instructions: Your blood work was normal. The CT scan of your abdomen pelvis with IV and oral contrast revealed no bowel obstruction however contrast did go into the excluded stomach which is unusual. I did discuss this finding with the bariatric physician speech assistant, Mona Abad. She wants you to stay on a liquid diet and to drink at least 3 protein shakes per day. Continue your medications. Call the bariatric office on Tuesday morning and they will get you in as soon as possible to schedule you for an endoscopy to further evaluate your abdominal pain and the abnormal finding on the CT scan. Follow-up with your doctor in 2 days. Please return to the emergency department if your symptoms get worse or if you develop any symptoms that are concerning to you. Prescriptions: No Action cholecalciferol (vitamin D3) 50 mcg (2,000 unit) capsule 50 mcg PO DAILY Qty: 30 11RF (DME) FreeStyle Lite Strips Strip See Rx Instructions .ROUTE .COMPLEX Qty: 150 6RF Dose Instruction: USE TO TEST BLOOD SUGAR TWICE DAILY Rx Instructions: USE TO TEST BLOOD SUGAR TWICE DAILY thiamine HCl (vitamin B1) 100 mg tablet 100 mg PO DAILY Qty: 90 3RF hydrocodone-acetaminophen 5-325 mg tablet 1 tab PO Q6H PRN (Reason: pain) Qty: 10 0RF Rx Instructions: Partial Fill upon patient request. hydroxyzine HCl 25 mg tablet 50 mg PO BEDTIME sertraline 100 mg tablet 1 tab PO BEDTIME pramipexole 0.25 mg tablet 1 tab DAILY tizanidine 4 mg tablet 1 tab PO BEDTIME lidocaine [Lidoderm] 5 % adhesive patch,medicated 1 patch topical DAILY MDD remove after 12 hours PRN (Reason: pain) Qty: 30 0RF Rx Instructions: leave on most painful area for up to 12 hrs albuterol sulfate 90 mcg/actuation HFA aerosol inhaler 2 puff inhalation Q4-6H PRN (Reason: shortness of breath or wheezing) Qty: 6.7 0RF fluticasone propionate [Flonase Allergy Relief] 50 mcg/actuation spray,suspension 2 spray intranasal DAILY Qty: 16 0RF Rx Instructions: administer into each nostril metformin 500 mg tablet extended release 24 hr 500 mg PO BID oxycodone 5 mg tablet 5 mg PO BID PRN (Reason: pain) Qty: 5 0RF Rx Instructions: Partial Fill upon patient request. hydrocodone-acetaminophen 5-325 mg tablet 1 tab PO Q4-6H PRN (Reason: pain) Qty: 5 0RF Rx Instructions: Partial Fill upon patient request. oxycodone 5 mg tablet 5 mg PO Q6H PRN (Reason: pain) Qty: 20 0RF Rx Instructions: Partial Fill upon patient request. clindamycin phosphate 1 % gel 1 appl topical BID Qty: 30 0RF cyclobenzaprine 10 mg tablet 10 mg PO TID PRN (Reason: muscle spasm) Qty: 10 0RF lidocaine [Lidoderm] 5 % adhesive patch,medicated 1 patch topical DAILY Qty: 15 0RF Rx Instructions: leave on most painful area for up to 12 hrs acarbose 25 mg tablet 25 mg PO TID 30 Days Qty: 90 4RF hydrochlorothiazide 12.5 mg capsule 12.5 mg PO DAILY ferrous sulfate 325 mg (65 mg iron) tablet,delayed release (DR/EC) 325 mg PO DAILY pantoprazole 40 mg tablet,delayed release (DR/EC) 40 mg PO BID Qty: 60 6RF (DME) blood-glucose meter [FreeStyle Lite Meter] Kit See Rx Instructions .Route Qty: 1 0RF Rx Instructions: As directed test blood sugar two times a day cyanocobalamin (vitamin B-12) 1,000 mcg tablet 1,000 mcg PO QAM
[2022-12-18 21:07] LABS: MANUAL DIFF FLAG NO
[2022-12-18 21:08] LABS: Basophils Percent Auto 0.3 % (0-2); Eosinophils Absolute Auto 0.2 X10*3/uL (0.0-0.4); Eosinophils Percent Auto 3.3 % (0-4); Hematocrit 37.1 % (37.0-47.0); Hemoglobin 12.5 g/dl (12.0-16.0); Imm Gran Abs Auto 0.01 X10*3/uL (0.00-0.03); Imm Gran Pct Auto 0.1 % (0.0-0.4); Lymphocytes Absolute Auto 2.3 X10*3/uL (1.2-4.9); Lymphocytes Percent Auto 31.4 % (20-40); Mean Corpuscular HGB Conc 33.7 g/dl (31.0-35.0); Mean Corpuscular Hemoglobin 28.9 pg (27.0-33.0); Mean Corpuscular Volume 85.9 fL (80.0-98.0); Mean Platelet Volume 9.8 fL (9.4-12.3); Monocytes Absolute Auto 0.5 X10*3/uL (0.1-1.2); Monocytes Percent Auto 6.2 % (2-11); Neutrophils Absolute Auto 4.3 x10*3/uL (2.0-8.3); Neutrophils Percent Auto 58.7 % (45-73); Platelet Count 200 X10*3/uL (160-400); Red Blood Count 4.32 X10*6/uL (4.20-5.50); Red Cell Distribution Width 12.6 % (11.0-16.0); White Blood Count 7.3 X10*3/uL (4.8-10.8)
[2022-12-18 21:22] LABS: Alanine Aminotransferase 15 U/L (0-31); Albumin Level 3.8 g/dL (3.5-5.0); Alkaline Phosphatase 76 U/L (39-117); Anion Gap 14 (12-20); Aspartate Amino Transferase 14 U/L (5-31); Bilirubin Total 0.4 mg/dL (0.0-1.0); Blood Urea Nitrogen 17 mg/dL (9-16); Calcium 9.2 mg/dL (8.4-10.2); Carbon Dioxide 27 mmol/L (22-29); Chloride 104 mmol/L (96-108); Creatinine Clr Calc Pharmacy 58.4; Estimated Glomerular Filt Rate 59; Glucose Random 145 mg/dL (60-115); Magnesium 2.1 mg/dL (1.6-2.6); Potassium 3.5 mmol/L (3.3-5.1); Sodium 141 mmol/L (135-145); Total Protein 6.4 g/dL (6.5-8.0)
[2022-12-18] MEDS: Lactated Ringers 1,000 ML 999 ML IV (23:00)
[2022-12-18] MEDS: ondansetron HCL 4 MG/2 ML VIAL IVPUSH (23:00)
[2022-12-18] MEDS: Morphine Sulfate 4 MG/ML CARTRIDGE IVPUSH (23:00)
[2022-12-18 23:03] LABS: Lipase 17 U/L (8-78)
--- NOTE | 2022-12-18 23:15 | PC.NURSE ---
iv placed 20g in L AC. pt medicated according to sep. pt calm and cooperative. ambulates independently to bathroom
[2022-12-19] VITALS: PULSE 68; RESP 12; O2SAT 96
[2022-12-19] MEDS: Morphine Sulfate 4 MG/ML CARTRIDGE IVPUSH (01:01)
[2022-12-19] MEDS: Diatrizoate Meglumine, Sodium 30 ML SOLUTION PO (02:17)
[2022-12-19] MEDS: iohexoL 350 MG/ML 100 ML INFUS..BTL 85 ML IV (02:18)
[2022-12-19 02:30] VITALS: PULSE 71; RESP 15; O2SAT 92
[2022-12-19 04:35] VITALS: BP 130/70; PULSE 60; RESP 17; TEMP 36.7; O2SAT 99
--- NOTE | 2022-12-19 04:51 | PC.NURSE ---
iv removed at time of discharge pt calm and cooperative. pt provided with discharge packet. pt denies pain at this time. pt verbalizes understanding of discharge plan
== END 2022-12-19 04:53 | disposition home or self-care (01) ==
PROVIDERS: Physician Assistant; Emergency Provider Emergency Medicine Emergency Medical Services; PCP Student in an Organized Health Care Education/Training Program
DX: R10.13 Epigastric pain (principal); E11.9 Type 2 diabetes mellitus without complications; I10 Essential (primary) hypertension; E78.5 Hyperlipidemia, unspecified; F17.210 Nicotine dependence, cigarettes, uncomplicated; Z86.718 Personal history of other venous thrombosis and embolism; Z98.84 Bariatric surgery status; Z79.899 Other long term (current) drug therapy; Z79.84 Long term (current) use of oral hypoglycemic drugs
CPT/HCPCS: 36415; 74177; 80053; 83690; 83735; 85025; 96361; 96374; 96375; 96376; 99284; J2270; J2405; Q9967

== ENCOUNTER → 2022-12-21 14:22 | Outpatient (BNVA) | payer MEDICAID, SELFPAY | PROVIDERS: PCP Student in an Organized Health Care Education/Training Program; Visit Provider Physician Assistant Surgical | DX: Z98.84 Bariatric surgery status (principal) ==

== ENCOUNTER 2022-12-23 08:22 | Outpatient (REF) | payer MEDICAID, SELFPAY ==
[2022-12-23 11:47] LABS: Vitamin D 25-OH Total 35.8 ng/mL (>30)
[2022-12-23 12:00] LABS: Folate 11.2 ng/mL (> or = 4.0); Vitamin B12 805 pg/mL (200-900)
[2022-12-27 14:32] LABS: PTHI 32 pg/mL (16-77)
[2022-12-28 12:23] LABS: Zinc 61 mcg/dL (60-130)
[2022-12-29 00:57] LABS: Vitamin A 43 mcg/dL (38-98)
[2022-12-30 12:23] LABS: Vitamin B1 13 nmol/L (8-30)
== END 2022-12-23 08:23 | disposition home or self-care (01) ==
LOC: HO.LAB 08:22
PROVIDERS: PCP Student in an Organized Health Care Education/Training Program; Visit Provider Physician Assistant Surgical
DX: Z98.84 Bariatric surgery status (principal)
CPT/HCPCS: 36415; 82306; 82607; 82746; 83970; 84425; 84590; 84630

== ENCOUNTER 2022-12-24 06:28 | Day surgery (SDC) | payer MEDICAID, SELFPAY ==
--- NOTE | 2022-12-23 08:38 | P.CONAN_ITS ---
Documented by User: Daily Aburto NP 12/23/22 08:39 HPI - Anesthesia Eval Consult details Narrative: 62yo F for EGD s/p carpal tunnel 10/2022 with [facility] Active Problems Active Problems: All Active Problems (Updated 12/20/22 @ 00:06 by Donnell Perez) Carpal tunnel syndrome of right wrist (Acute) Infection of skin due to methicillin resistant Staphylococcus aureus (MRSA) (Acute) Overweight (BMI 25.0-29.9) (Acute) Epidermal inclusion cyst (Acute) Trigger finger, left middle finger (Acute) Trigger finger, left ring finger (Acute) Emesis (Acute) Stiffness of left hand joint (Acute) Hidradenitis suppurativa (Acute) Left hand pain (Acute) Numbness and tingling in left hand (Acute) Contusion of right ankle (Acute) Carpal tunnel syndrome of left wrist (Acute) Cubital tunnel syndrome on left (Acute) Abscess (Acute) Sebaceous cyst (Acute) COVID-19 (Acute) Abdominal pain (Acute) Ganglion cyst of dorsum of left wrist (Acute) Numbness of right hand (Acute) GERD (gastroesophageal reflux disease) (Acute) Asthma (Acute) Dyslipidemia (Acute) Non-toxic multinodular goiter (Acute) Diabetes type 2, controlled (Acute) Anastomotic ulcer (Acute) S/P gastric bypass (Acute) Borderline diabetes (Acute) Past Medical History Medical History Anastomotic ulcer Anxiety Asthma Borderline diabetes Depression Diabetes type 2, controlled DVT (deep venous thrombosis) Dyslipidemia GERD (gastroesophageal reflux disease) High cholesterol History of restless legs syndrome Non-toxic multinodular goiter Family History Family History Mother Diabetes mellitus CHF (congestive heart failure) Kidney failure Cervical cancer Brother No problems noted. Brother No problems noted. Family history of problems with anesthesia: No Surgical History Surgical History History of excision of epidermal inclusion cyst (03/23/22) History of excision of mass (10/26/21) History of hysterectomy History of removal of cyst (07/28/22) History of surgery History of surgery on left wrist History of tooth extraction Hx of cholecystectomy Hx of elbow surgery Hx of esophagogastroduodenoscopy Hx of excision of epidermal inclusion cyst (12/25/21) Hx of hand surgery S/P gastric bypass S/P trigger finger release History of Problems with Anesthesia: No Social History Social History Household Members: Spouse Are you a primary health care liaison to a significant other at home: No Do you presently have visiting nurse or other home services: No Alcohol intake: never Patient Tobacco Use Status: Former Tobacco user Quit Date: 6 months ago Tobacco use type: Cigarette Cigarette Packs Per Day: 0 Cigarettes Per Day: 1 Years Smoked: 30 Use of substances other than those prescribed or required for medical reasons: No Are you DNR?: No Advance Directives: No Advance Directives Information Provided: Yes Current occupational status: employed 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 Meds Allergies Allergy/AdvReac Type Severity Reaction Status Date / Time Penicillins Allergy Intermediate HIVES Verified 11/10/22 09:09 sulfamethoxazole Allergy Intermediate BLISTERS- Verified 11/10/22 09:09 [From BACTRIM] DELGADO - NERVE ENDINGS IN HAND/ERYTHEMA MULTIFORM trimethoprim [From BACTRIM] Allergy Intermediate BLISTERS- Verified 11/10/22 09:09 DELGADO - NERVE ENDINGS IN HAND/ERYTHEMA MULTIFORM latex [Latex] Allergy Mild RASH Verified 11/10/22 09:09 theophylline AdvReac Intermediate TACHYCARDIA Verified 11/10/22 09:09 TEGADERM Allergy Intermediate SKIN TEARS Uncoded 10/05/22 09:52 From COMPAZINE AdvReac Severe SEIZURES Uncoded 10/05/22 09:52 Home Medications Medication Instructions Recorded Confirmed Last Taken Type hydrochlorothiazide 12.5 mg capsule 12.5 mg PO DAILY 05/09/20 12/24/22 10/13/22 History hydroxyzine HCl 25 mg tablet 50 mg PO BEDTIME 06/04/20 12/24/22 10/13/22 History pramipexole 0.25 mg tablet 1 tab DAILY 10/20/21 12/24/22 10/13/22 History sertraline 100 mg tablet 1 tab PO BEDTIME 10/20/21 12/24/22 10/13/22 History tizanidine 4 mg tablet 1 tab PO BEDTIME 10/20/21 12/24/22 10/13/22 History ferrous sulfate 325 mg (65 mg 325 mg PO DAILY 06/01/22 12/24/22 10/11/22 History iron) tablet,delayed release cyanocobalamin (vitamin B-12) 1,000 mcg PO QAM 06/03/22 12/24/22 10/13/22 History 1,000 mcg tablet metformin 500 mg tablet,extended 500 mg PO BID 06/03/22 12/24/22 10/13/22 History release 24 hr sucralfate 100 mg/mL oral 10 ml PO TID 12/21/22 12/24/22 Unknown History suspension Exam Exam Date and Time: December 23, 2022 0838 Pertinent Lab Results Pertinent Lab Results: Laboratory Tests 12/18/22 12/18/22 20:53 20:53 WBC 7.3 Hgb 12.5 Hct 37.1 Plt Count 200 Sodium 141 Potassium 3.5 Chloride 104 Carbon Dioxide 27 BUN 17 H Creatinine 0.96 Assessment and Plan Assessment Anesthesia Assessment: Chart Reviewed Final Anesthetic Review Family History of Problems with Anesthesia: No History of Problems with Anesthesia: No Documented by User: Tamiko Pacheco MD 12/24/22 07:31 [facility] Past Medical History Medical History Anastomotic ulcer Anxiety Asthma Borderline diabetes Depression Diabetes type 2, controlled DVT (deep venous thrombosis) Dyslipidemia GERD (gastroesophageal reflux disease) High cholesterol History of restless legs syndrome Non-toxic multinodular goiter Family History Family History Mother Diabetes mellitus CHF (congestive heart failure) Kidney failure Cervical cancer Brother No problems noted. Brother No problems noted. Surgical History Surgical History History of excision of epidermal inclusion cyst (03/23/22) History of excision of mass (10/26/21) History of hysterectomy History of removal of cyst (07/28/22) History of surgery History of surgery on left wrist History of tooth extraction Hx of cholecystectomy Hx of elbow surgery Hx of esophagogastroduodenoscopy Hx of excision of epidermal inclusion cyst (12/25/21) Hx of hand surgery S/P gastric bypass S/P trigger finger release Social History Social History Household Members: Spouse Are you a primary health care liaison to a significant other at home: No Do you presently have visiting nurse or other home services: No Alcohol intake: never Patient Tobacco Use Status: Former Tobacco user Quit Date: 6 months ago Tobacco use type: Cigarette Cigarette Packs Per Day: 0 Cigarettes Per Day: 1 Years Smoked: 30 Use of substances other than those prescribed or required for medical reasons: No Are you DNR?: No Advance Directives: No Advance Directives Information Provided: Yes Current occupational status: employed 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 Meds Allergies Allergy/AdvReac Type Severity Reaction Status Date / Time Penicillins Allergy Intermediate HIVES Verified 11/10/22 09:09 sulfamethoxazole Allergy Intermediate BLISTERS- Verified 11/10/22 09:09 [From BACTRIM] DELGADO - NERVE ENDINGS IN HAND/ERYTHEMA MULTIFORM trimethoprim [From BACTRIM] Allergy Intermediate BLISTERS- Verified 11/10/22 09:09 DELGADO - NERVE ENDINGS IN HAND/ERYTHEMA MULTIFORM latex [Latex] Allergy Mild RASH Verified 11/10/22 09:09 theophylline AdvReac Intermediate TACHYCARDIA Verified 11/10/22 09:09 TEGADERM Allergy Intermediate SKIN TEARS Uncoded 10/05/22 09:52 From COMPAZINE AdvReac Severe SEIZURES Uncoded 10/05/22 09:52 Home Medications Medication Instructions Recorded Confirmed Last Taken Type hydrochlorothiazide 12.5 mg capsule 12.5 mg PO DAILY 05/09/20 12/24/22 10/13/22 History hydroxyzine HCl 25 mg tablet 50 mg PO BEDTIME 06/04/20 12/24/22 10/13/22 History pramipexole 0.25 mg tablet 1 tab DAILY 10/20/21 12/24/22 10/13/22 History sertraline 100 mg tablet 1 tab PO BEDTIME 10/20/21 12/24/22 10/13/22 History tizanidine 4 mg tablet 1 tab PO BEDTIME 10/20/21 12/24/22 10/13/22 History ferrous sulfate 325 mg (65 mg 325 mg PO DAILY 06/01/22 12/24/22 10/11/22 History iron) tablet,delayed release cyanocobalamin (vitamin B-12) 1,000 mcg PO QAM 06/03/22 12/24/22 10/13/22 History 1,000 mcg tablet metformin 500 mg tablet,extended 500 mg PO BID 06/03/22 12/24/22 10/13/22 History release 24 hr sucralfate 100 mg/mL oral 10 ml PO TID 12/21/22 12/24/22 Unknown History suspension Exam Airway Mallampati Class: II TM Dist: >3cm Denture: Upper Loose/Missing/Broken Teeth: Yes and Upper Heart: RRR Lungs: CTA Assessment and Plan Assessment Anesthesia Assessment: Anesthesia Plan Discussed Final Anesthetic Review NPO: Yes ASA Class: II Final Preanesthetic Review: Meds/Allgs Chart Reviewed, Consent Obtained/Reviewed and Anes Risks/Benef Reviewed Patient Risk: Low Procedure Risk: Intermediate Anesthetic Plan Anesthetic Plan: MAC: Disposition: Standard PACU
[2022-12-23 09:26] LABS: COVID-19 Test Negative (Negative); IDNOW Serial# BCCEAD1C
--- NOTE | 2022-12-23 10:54 | MHC.SHP ---
Pre-Procedural Eval Section A Date of Service: 12/23/22 The patient is an INPATIENT: No The History & Physical has been completed within 30 days and I have reviewed it.: Yes Section B Chief Complaint: abdominal pain Relevant Family History (Specify if Yes): No Relevant Social History: None Present Medications: None Medical History: No relevant PMH History of Previous Operations: Relevant previous surgery/procedure and date(s) (laparoscopic gastric bypass) Allergies: Allergies Allergy/AdvReac Type Severity Reaction Status Date / Time Penicillins Allergy Intermediate HIVES Verified 11/10/22 09:09 sulfamethoxazole Allergy Intermediate BLISTERS- Verified 11/10/22 09:09 [From BACTRIM] DELGADO - NERVE ENDINGS IN HAND/ERYTHEMA MULTIFORM trimethoprim [From BACTRIM] Allergy Intermediate BLISTERS- Verified 11/10/22 09:09 DELGADO - NERVE ENDINGS IN HAND/ERYTHEMA MULTIFORM latex [Latex] Allergy Mild RASH Verified 11/10/22 09:09 theophylline AdvReac Intermediate TACHYCARDIA Verified 11/10/22 09:09 TEGADERM Allergy Intermediate SKIN TEARS Uncoded 10/05/22 09:52 From COMPAZINE AdvReac Severe SEIZURES Uncoded 10/05/22 09:52 Review of Systems Sugical H&P ROS: Negative: Constitution, Cardiovascular, Respiratory, Neurological, Psychiatric, Hem-Onc, Allergic/Immunologic, Genitourinary, Musculoskeletal, Integumentary, Endocrine and Eyes/Ears/Nose/Throat and Yes, Specify: Gastrointestinal (abdominal pain) Exam Surgical H&P Exam: Normal: HEENT, Normal: Heart, Normal: Lungs, Normal: Extremities, Normal: Abdomen, Normal: Skin and Normal: Neurological Plan Diagnosis/Plan: Unchanged (Upper endoscopy to rule out an anastomotic ulcer. Risks of bleeding or perforation were discussed with the patient.) I have reviewed the history and physical and performed a pertinent physical examination on my patient. No changes have occurred unless specified. Time Spent With Patient Time: Total time managing care of this patient today ____ minutes.
[2022-12-24 06:50] VITALS: BMI 27.3
[2022-12-24 06:59] LABS: Glucose, Whole Blood 147 mg/dL (60-115)
[2022-12-24] MEDS: Lactated Ringers 1,000 ML 80 ML IVCONT (07:01)
[2022-12-24 08:05] VITALS: BP 121/66; PULSE 73; RESP 18; TEMP 36.3; O2SAT 99
--- NOTE | 2022-12-24 08:08 | PM.OP ---
Brief Operative Note Date of Service: 12/24/22 Pre-op diagnosis: Epigastric pain, rule out gastro-gastric fistula Post-op diagnosis: same Procedure: PROCEDURE DATE: ?12/24/2022 PREOPERATIVE DIAGNOSIS: epigastric pain, rule out gastro-gastric fistula, s/p gastric bypass POSTOPERATIVE DIAGNOSIS: Normal endoscopy PROCEDURE: [id number] Surgeon: ?Ronnie Pa M.D.. Ph.D. Electric Organ Assembler And Checker: ?None ? Anesthesia: IV sedation Estimated blood loss: ?Minimal FINDINGS AND PROCEDURE: ? OPERATIVE INDICATIONS: ?The patient is a 62 year old female known to me who underwent a laparoscopic gastric bypass by me. The patient had excellent weight loss so far. Recently has been complaining of epigastric pain postprandial mostly. A CT of the abdomen showed some oral contrast in the gastric remnant and an endoscopy was recommended to rule out a gastro-gastric fistula.? Based on this information I recommended an upper endoscopy to evaluate the patient's symptoms.? Risks and complications of the surgery were discussed with the patient in advance particularly the possibility of perforation or bleeding that may require surgical intervention. The patient understood the risks and was in agreement with the plan. ? PROCEDURE: After informed consent was obtained by the patient, the patient was ?transferred to the Operating Room and was placed in the supine position.? After successful induction of IV sedation, a mouth block was placed and the patient was placed in the left lateral decubitus position. An upper endoscopy was performed next, the oropharynx and esophagus appeared within the normal limits. There was no hiatal hernia.? The z-line was smooth. . The small pouch was entered, appeared to be of normal size. There was no gastritis and the gastrojejunostomy was patent. There was no anastomotic ulcer.? At that point the scope was advanced into the proximal small intestine (proximal José Manuel limb) up to 75cm from the incisoros which appeared to be normal as well. The José Manuel limb and the pouch were decompressed and the scope was withdrawn from the patient's mouth. The patient was awaken and was transferred in stable condition to the Recovery Room for further care. I was present and performed all steps of the procedure. There were no residents to assist with this case. Ronnie Pa M.D., Ph.D. Surgeon: Donald Pa MD Anesthesia: MAC Was an Electric Organ Assembler And Checker used for this Procedure?: No Estimated blood loss (mL): 0 IV fluids (mL): 400 Urine output (mL): 0 (No Dawn to record output) Pathology: none sent Condition: stable Disposition: PACU
--- NOTE | 2022-12-24 08:18 | P.BOP_ITS ---
Brief Operative Note Date of Service: 12/24/22 Pre-op diagnosis: Severe obesity with comorbidities (see below) Post-op diagnosis: same Procedure: INITIAL PATIENT BMI ON PRESENTATION AT OUR OFFICE: 41.6 kg/m2 LAST BMI BEFORE SURGERY: 36.5 kg/m2 COMORBIDITIES: hypertension, depression, anxiety, ADHD, DJD, GERD, nephrolithiasis ?The patient presented to the Weight Management Program with significant obesity that was negatively impacting the patient's comorbidities as listed above.? The program is a phased program with a special focus on preoperative medical weight management to promote substantial weight loss and prepare the patients for the second phase of the program: bariatric surgery. The patient participated in an intensive weekly lifestyle ?intervention and exercise program during which the patient ?has lost between the initial office visit and the last preoperative visit 32.8 lbs, or 12.35% of initial actual body weight. It was deemed appropriate for the patient to now have bariatric surgery. In light of the current Covid-19 pandemic and the well documented strong association of obesity and increased risk of worse outcomes if infected with Covid-19 (REFERENCES: https://pubmed.ncbi.nlm.nih.gov/31581102/ ,? https://pubmed.ncbi.nlm.nih.gov/28035244/ ), any delay in undergoing bariatric surgery may lead to the patient's worsening health condition and increased?risk of more severe Covid-19 disease if infected. In addition a recent?study from [facility] published in [employer] on 06/29/2021 ([email or web address]) found that, among patients with obesity, substantial weight loss achieved with surgery was associated with improved outcomes of COVID-19 infection. The findings suggest that obesity can be a modifiable risk factor for the severity of COVID-19 infection. In addition, the patient met the BMI-criteria for bariatric surgery based on the BMI on initial presentation. The patient should not be penalized for achieving such weight loss because ?it is not sustainable long-term without surgical intervention and it was achieved in preparation for bariatric surgery ?under my direction and based on my published research ([email or web address]).[email or web address] and? https://www.soard.org/article/L0180-9185(72)18130-X/pdf ) ?that a 10% preopera tive weight loss improves long-term weight loss after surgery and reduces perioperative complications.? Insurance carriers such as [facility] have endorsed my recommendations ?and have included in their policies criteria to include a 10% preoperative weight loss requirement. PROCEDURE: Esophago-gastroscopy, laparoscopic repair of incarcerated diaphragmatic hernia, laparoscopic lysis of adhesions, laparoscopic sleeve gastrectomy and laparoscopic gastropexy INDICATIONS: This is a 62 year-old female who was electively scheduled for laparoscopic, possibly open sleeve gastrectomy. The risks and complications of the procedure were discussed with the patient in advance, particularly the possibility of ; pulmonary embolism; staple line leak; bleeding; GERD; cardiac, pulmonary, or renal complications; as well as long-term problems such as insufficient weight loss, vitamin deficiency, strictures, or ulcers. The patient understood all the risks, and was in agreement to proceed with surgery. DESCRIPTION OF PROCEDURE: After informed consent was obtained from the patient, the patient was given preoperative antibiotics, and was transferred to the operating room. After successful induction of general anesthesia, pneumatic compression devices were placed on both lower extremities. An upper endoscopy was performed next. The oropharynx and esophagus appeared to be within normal limits. There was a diaphragmatic hernia present of moderate size consistent with the findings of the preoperative upper GI. The stomach was entered. Then after all fluid and air were suctioned and the stomach was fully decompressed, the scope was withdrawn and secured in the mid esophagus. The patient was then prepped and draped in the usual sterile manner, and abdominal access was established at the right upper quadrant with the Karlie technique. A 12 mm blunt port was inserted, and the abdomen was insufflated with CO2 to a pressure of 15 mmHg. Under direct visualization, additional ports were placed, specifically two 5 mm Versi-step ports to the left upper quadrant, and a 5 mm Versi-Step port to the right upper quadrant. 1% lidocaine plain was used to infiltrate all port sites as well as all fascia defects. ? PLEASE REVIEW BEFORE TO INCLUDE THIS SENTENCE: Using the EndoClose suture passer device, I placed a #1 Polysorb tie across the falciform ligament in order to retract it up against the abdominal wall and prevent injury of the ligament with our instruments during the procedure. ? PLEASE REVIEW BEFORE TO INCLUDE THIS SENTENCE: There were adhesions in the abdomen from previous involving the omentum and the anterior abdominal wall. Those were lysed completely with the ultrasonic device. Following that, the patient was placed in a steep reverse Trendelenburg position. An additional 5 mm port was placed to the right flank for the Mediflex retractor that was used to retract the left lobe of the liver. The gastro-esophageal fat pad was opened with the ultrasonic device ( Thunderbeat, Olympus) and the anterior esophagus and hiatus were exposed. The angle of His was opened with the ultrasonic device the fundus of the stomach from any diaphragmatic and splenic attachments. I then opened the gastrocolic ligament between the transverse colon and the greater curvature of the stomach with the ultrasonic device to enter the lesser sac and facilitate the ligation of the short gastric vessels. I started at a mid-point along the greater curvature and using the Thunderbeat, all short gastric vessels were divided all the way to the angle of His until the left rogerio was completely dissected at its entirety. I then divided the gastro-colic ligament distally to a distance of about 3-4 cm proximal to the pylorus. ? PLEASE REVIEW BEFORE TO INCLUDE THIS SENTENCE There were extensive congenital adhesions between the pancreas and posterior gastric wall. Those were lysed completely with the ultrasonic device. Adhesiolysis took approximately 45 min to complete. ? PLEASE REVIEW BEFORE TO INCLUDE THIS PARAGRAPH: There was an obvious significant-sized hiatal hernia. I continued dissecting along the hiatus toward the left rogerio and the angle of His. I fully mobilized the fat pad that was incarcerated in the hernia. I then continued by dissecting even further into the posterior retro-esophageal space all the way to the angle of His. I continued to mobilize the esophagus into the mediastinum circumferentially. Both vagal nerves were seen and preserved. At that point, I was able to have at least 3 to 5 cm of esophagus into the abdomen.? After I completely mobilized the esophagus from both the left and right rogerio and I had a good mobilization of the esophagus circumferentially, I closed the hernia defect with ? interrupted #0 Surgidac sutures using the Endo Stitch device, ??? of which was placed posterior and ??? of which anterior to the esophagus. ? The stomach was then divided transversely with one Endo ALBERTA-45 purple, ?? ALBERTA-45 orange loads and ??? ALBERTA-6s0 articulating orange loads using the AEON stapler and loads. Every effort was made that the gastric sleeve had a tubular shape and an even caliber throughout. Once the sleeve resection was completed, the staple line of the gastric sleeve was reinforced with Hemoclips. The resected stomach was retrieved without difficulty from the Karlie port. A gastropexy was then performed in order to prevent postoperative GERD and partial gastric volvulus. Several interrupted 2.0 Surgidac sutures were placed between the sleeve's staple line and the previously divided greater omentum and gastro-colic ligament using the Endo-Stitch device. ?An upper endoscopy was performed. There was no narrowing at the GE junction. The scope was easily advanced all the way to the pylorus which was clearly vi sualized. There was no narrowing anywhere and the sleeve's caliber was even throughout. The sleeve's staple line was inspected and there was no evidence of ischemia, bleeding or dehiscence. At that point the gastroscope was withdrawn from the patient?s mouth while we were decompressing the bowel and the stomach from any remaining air. I looked into the lesser sac to see how the sleeve was situating and it was situating well. There was no bleeding from the staple line, spleen, or short gastric vessels. The Mediflex retractor was removed, and the undersurface of the liver was inspected and there was no bleeding. The patient was placed in supine position. I closed the fascial defect of the 12 mm port site with a figure of eight #1 Polysorb suture. Then 30 cc Ropivacaine plain with 10 mg of Dexamethasone were used to infiltrate the fascial closure as well as all skin incisions. A total of ml Zynrelef was applied in the Karlie wound. At this point, the abdomen was deflated, all ports were removed under direct vision, and no bleeding was noted from any of the port sites. The skin incisions were irrigated with saline and were closed with 4-0 absorbable monofilament sutures. Steri-Strips and OpSites were used to cover all incisions. The patient was extubated and was transferred in stable condition to the recovery room for further care. I was present and performed all rondon parts of the procedure. Mr. Worthington was the recovery assistant. There were no residents to assist with this case. Ronnie Pa MD, PhD, FACS Surgeon: Donald Pa MD Anesthesia: GETA, local and other (TAP block and ml Zynrelef) Was an Corporate Travel Manager used for this Procedure?: Yes Corporate Travel Manager: [employer] Worthington Estimated blood loss (mL): 10 Urine output (mL): 0 (No Dawn to record output) Pathology: other (Stomach) Condition: stable Disposition: PACU
[2022-12-24 08:19] VITALS: BP 137/71; PULSE 78; RESP 16; O2SAT 98
--- NOTE | 2022-12-24 08:22 | PM.PNGS ---
Subjective Subjective Date of Service: 12/24/22 Interval history: Feels well. Mild incisional pain. She is tolerating phase 1 bariatric diet Physical Exam Vital Signs: Vital Signs: Last Vital Signs Temp 97.3 F 12/24/22 08:05 Pulse 78 12/24/22 08:19 Resp 16 12/24/22 08:19 BP 137/71 12/24/22 08:19 Pulse Ox 98 12/24/22 08:19 O2 Del Method Room Air 12/24/22 08:19 O2 Flow Rate 6 12/24/22 08:05 BMI result Body Mass Index 27.3 GI: Inspection: Yes normal to inspection, Yes incision (clean, dry and intact) and Yes obesity Palpation (GI): Soft to palpation Extrem: Right lower extremity: normal to inspection (no calf tenderness) Left lower extremity: normal to inspection (no calf tenderness) Objective Data Active Medications Albuterol Sulfate (Albuterol Sulfate (0.083%) 2.5 Mg/3 Ml Vial.Neb) 2.5 mg INHALE ONCE PRN PRN Reason: Shortness of Breath/Wheezing Lactated Ringer's (Lr) 1,000 mls @ 80 mls/hr IVCONT .[id number] CHARITY Last Admin: 12/24/22 07:01 Dose: 80 mls/hr Documented By: MINGO Lactated Ringer's (Lr) 1,000 mls @ 100 mls/hr IVCONT .Q10H [facility] Labs Labs: Laboratory Results - last 24 hr 12/23/22 12/24/22 08:45 06:55 POC Glucose 147 H COVID-19 (HANSA) Negative COVID-19 Clin Com See Note Procedures Date of Service Date of Service: 12/24/22 Progress Note: A&P Time Spent With Patient Time: Total time managing care of this patient today ____ minutes.
[2022-12-24 08:34] VITALS: BP 123/78; PULSE 65; RESP 16; TEMP 36.2; O2SAT 98
== END 2022-12-24 09:13 | disposition home or self-care (01) ==
PROVIDERS: Nurse Practitioner; PCP Student in an Organized Health Care Education/Training Program; Visit Provider Surgery
PROC: 0DJ08ZZ Inspection of Upper Intestinal Tract, Via Natural or Artificial Opening Endoscopic (ICD-10-PCS; CPT 43235; principal; 2022-12-24 07:30)
DX: R10.13 Epigastric pain (principal); Z98.84 Bariatric surgery status; E66.3 Overweight; Z68.27 Body mass index [BMI] 27.0-27.9, adult; K21.9 Gastro-esophageal reflux disease without esophagitis; Z87.11 Personal history of peptic ulcer disease; E11.9 Type 2 diabetes mellitus without complications; J45.909 Unspecified asthma, uncomplicated; E78.5 Hyperlipidemia, unspecified; E78.00 Pure hypercholesterolemia, unspecified; Z79.51 Long term (current) use of inhaled steroids; Z79.84 Long term (current) use of oral hypoglycemic drugs; Z79.899 Other long term (current) drug therapy; Z88.0 Allergy status to penicillin; Z88.2 Allergy status to sulfonamides; Z88.8 Allergy status to other drugs, medicaments and biological substances; Z91.040 Latex allergy status; Z90.49 Acquired absence of other specified parts of digestive tract; Z20.822 Contact with and (suspected) exposure to COVID-19; Z87.891 Personal history of nicotine dependence
CPT/HCPCS: 43235; 82947; 87635

== ENCOUNTER 2023-01-06 22:38 | Emergency (ER) | payer MEDICAID, SELFPAY ==
[2023-01-06 22:52] VITALS: BP 128/71; PULSE 81; RESP 18; TEMP 36.4; O2SAT 98; BMI 27.3
--- NOTE | 2023-01-06 23:52 | ED.BACK ---
HPI - Back Pain/Injury General Chief Complaint: Back Pain/Injury Stated Complaint: Back pain/left leg swollen Time Seen by Provider: 01/06/23 23:51 Source: patient Mode of arrival: ambulatory Limitations: no limitations History of Present Illness HPI Narrative: Patient history of chronic low back pain as received cortisone injections in the was lifting 30 lb dog food at work yesterday felt increased pain in the lower back radiating to the left leg feels tingling sensation to the left history of same in the past off and on no bladder or bowel incontinence no leg weakness Related Data Home Medications Medication Instructions Recorded Confirmed hydrochlorothiazide 12.5 mg capsule 12.5 mg PO DAILY 05/09/20 12/24/22 hydroxyzine HCl 25 mg tablet 50 mg PO BEDTIME 06/04/20 12/24/22 pramipexole 0.25 mg tablet 1 tab DAILY 10/20/21 12/24/22 sertraline 100 mg tablet 1 tab PO BEDTIME 10/20/21 12/24/22 tizanidine 4 mg tablet 1 tab PO BEDTIME 10/20/21 12/24/22 ferrous sulfate 325 mg (65 mg 325 mg PO DAILY 06/01/22 12/24/22 iron) tablet,delayed release cyanocobalamin (vitamin B-12) 1,000 mcg PO QAM 06/03/22 12/24/22 1,000 mcg tablet metformin 500 mg tablet,extended 500 mg PO BID 06/03/22 12/24/22 release 24 hr sucralfate 100 mg/mL oral 10 ml PO TID 12/21/22 12/24/22 suspension Previous Rx's Medication Instructions Recorded cholecalciferol (vitamin D3) 50 50 mcg PO DAILY #30 caps 12/15/20 mcg (2,000 unit) capsule acarbose 25 mg tablet 25 mg PO TID 30 days #90 tabs 12/31/20 albuterol sulfate 90 mcg/actuation 2 puff inhalation Q4-6H PRN 06/21/21 aerosol inhaler shortness of breath or wheezing #6.7 grams fluticasone propionate 50 2 spray intranasal DAILY #16 grams 06/21/21 mcg/actuation nasal spray,suspension (Flonase Allergy Relief) blood-glucose meter (FreeStyle #1 ea 08/21/21 Lite Meter kit) blood sugar diagnostic (FreeStyle #150 strips 03/30/22 Lite Strips) thiamine HCl (vitamin B1) 100 mg 100 mg PO DAILY #90 tabs 06/07/22 tablet lidocaine 5 % topical patch 1 patch topical DAILY PRN pain #30 08/13/22 (Lidoderm) ea hydrocodone 5 mg-acetaminophen 325 1 tab PO Q4-6H PRN pain #5 tabs 10/14/22 mg tablet hydrocodone 5 mg-acetaminophen 325 1 tab PO Q6H PRN pain #10 tabs 10/14/22 mg tablet oxycodone 5 mg tablet 5 mg PO BID PRN pain #5 tabs 10/31/22 clindamycin phosphate 1 % topical 1 appl topical BID #30 grams 11/07/22 gel cyclobenzaprine 10 mg tablet 10 mg PO TID PRN muscle spasm #10 11/10/22 tabs lidocaine 5 % topical patch 1 patch topical DAILY #15 ea 11/10/22 (Lidoderm) pantoprazole 40 mg tablet,delayed 40 mg PO BID #60 tabs 12/20/22 release cyclobenzaprine 10 mg tablet 10 mg PO Q8H #20 tabs 01/07/23 oxycodone 5 mg tablet 5 mg PO Q6H PRN pain #20 tabs 01/07/23 Allergies Allergy/AdvReac Type Severity Reaction Status Date / Time Penicillins Allergy Intermediate HIVES Verified 01/06/23 22:52 sulfamethoxazole Allergy Intermediate BLISTERS- Verified 01/06/23 22:52 [From BACTRIM] DELGADO - NERVE ENDINGS IN HAND/ERYTHEMA MULTIFORM trimethoprim [From BACTRIM] Allergy Intermediate BLISTERS- Verified 01/06/23 22:52 DELGADO - NERVE ENDINGS IN HAND/ERYTHEMA MULTIFORM latex [Latex] Allergy Mild RASH Verified 01/06/23 22:52 theophylline AdvReac Intermediate TACHYCARDIA Verified 01/06/23 22:52 TEGADERM Allergy Intermediate SKIN TEARS Uncoded 10/05/22 09:52 From COMPAZINE AdvReac Severe SEIZURES Uncoded 10/05/22 09:52 Review of Systems Review of Systems: Yes all other systems are reviewed and are negative [facility] Past Medical History Medical History Anastomotic ulcer Anxiety Asthma Borderline diabetes Depression Diabetes type 2, controlled DVT (deep venous thrombosis) Dyslipidemia GERD (gastroesophageal reflux disease) High cholesterol History of restless legs syndrome Non-toxic multinodular goiter Surgical History History of excision of epidermal inclusion cyst (03/23/22) History of excision of mass (10/26/21) History of hysterectomy History of removal of cyst (07/28/22) History of surgery History of surgery on left wrist History of tooth extraction Hx of cholecystectomy Hx of elbow surgery Hx of esophagogastroduodenoscopy Hx of excision of epidermal inclusion cyst (12/25/21) Hx of hand surgery S/P gastric bypass S/P trigger finger release Family History Family History Mother Diabetes mellitus CHF (congestive heart failure) Kidney failure Cervical cancer Brother No problems noted. Brother No problems noted. 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 Oriented X3. No acute distress. Eyes: PERRLA, No Nystagmus ENT: Pharynx normal. Oral Mucosa moist Neck: Normal inspection. Neck supple. CVS: Normal heart rate and rhythm. Pulses normal. Respiratory: No respiratory distress. Equal air entry bilateral, Abdomen: Soft and nontender. Bowel sounds are present, no mass palpable, no CVA tenderness Skin: Skin warm and dry. Normal skin color. Normal skin turgor. Back: Diffuse lumbar spine tenderness no focal deformity or tenderness SLR positive at 60 degrees on left side no weakness no dermatomal sensation loss stable gait Extremities: No lower extremity edema. No calf tenderness Neuro: Oriented X 3. No motor deficit. No sensory deficit.No cerebellar signs , cranial nerves II-XII intact Medications Administered Discontinued Medications Generic Name Dose Route Start Last Admin Trade Name Freq PRN Reason Stop Dose Admin Cyclobenzaprine HCl 10 mg 01/07/23 00:01 01/07/23 00:05 Cyclobenzaprine Hcl 10 Mg Tablet PO 01/07/23 00:02 10 mg ONCE ONE Administration Oxycodone HCl 10 mg 01/07/23 00:01 01/07/23 00:05 Oxycodone Hcl Immed Release 5 Mg Tablet PO 01/07/23 00:02 10 mg ONCE ONE Administration Medical Decision Making Medical Decision Making [facility] Narrative: Patient left sciatica x-ray negative for acute fracture discharge patient home pain management and muscle Discharge Plan Discharge Clinical Impression: Acute left-sided back pain with sciatica Patient Disposition: Home, Self-Care Instructions: Acute Low Back Pain (ED) Additional Instructions: Likely you have sciatica on the left side with chronic back pain Take pain medication muscle relaxant as prescribed Follow with PCP/Orthopedics if not better Prescriptions: New cyclobenzaprine 10 mg tablet 10 mg PO Q8H Qty: 20 0RF oxycodone 5 mg tablet 5 mg PO Q6H PRN (Reason: pain) Qty: 20 0RF Rx Instructions: Partial Fill upon patient request. No Action cholecalciferol (vitamin D3) 50 mcg (2,000 unit) capsule 50 mcg PO DAILY Qty: 30 11RF (DME) FreeStyle Lite Strips Strip See Rx Instructions .ROUTE .COMPLEX Qty: 150 6RF Dose Instruction: USE TO TEST BLOOD SUGAR TWICE DAILY Rx Instructions: USE TO TEST BLOOD SUGAR TWICE DAILY thiamine HCl (vitamin B1) 100 mg tablet 100 mg PO DAILY Qty: 90 3RF hydrocodone-acetaminophen 5-325 mg tablet 1 tab PO Q6H PRN (Reason: pain) Qty: 10 0RF Rx Instructions: Partial Fill upon patient request. pantoprazole 40 mg tablet,delayed release (DR/EC) 40 mg PO BID Qty: 60 6RF hydroxyzine HCl 25 mg tablet 50 mg PO BEDTIME sertraline 100 mg tablet 1 tab PO BEDTIME pramipexole 0.25 mg tablet 1 tab DAILY tizanidine 4 mg tablet 1 tab PO BEDTIME lidocaine [Lidoderm] 5 % adhesive patch,medicated 1 patch topical DAILY MDD remove after 12 hours PRN (Reason: pain) Qty: 30 0RF Rx Instructions: leave on most painful area for up to 12 hrs albuterol sulfate 90 mcg/actuation HFA aerosol inhaler 2 puff inhalation Q4-6H PRN (Reason: shortness of breath or wheezing) Qty: 6.7 0RF fluticasone propionate [Flonase Allergy Relief] 50 mcg/actuation spray,suspension 2 spray intranasal DAILY Qty: 16 0RF Rx Instructions: administer into each nostril metformin 500 mg tablet extended release 24 hr 500 mg PO BID oxycodone 5 mg tablet 5 mg PO BID PRN (Reason: pain) Qty: 5 0RF Rx Instructions: Partial Fill upon patient request. hydrocodone-acetaminophen 5-325 mg tablet 1 tab PO Q4-6H PRN (Reason: pain) Qty: 5 0RF Rx Instructions: Partial Fill upon patient request. clindamycin phosphate 1 % gel 1 appl topical BID Qty: 30 0RF cyclobenzaprine 10 mg tablet 10 mg PO TID PRN (Reason: muscle spasm) Qty: 10 0RF lidocaine [Lidoderm] 5 % adhesive patch,medicated 1 patch topical DAILY Qty: 15 0RF Rx Instructions: leave on most painful area for up to 12 hrs acarbose 25 mg tablet 25 mg PO TID 30 Days Qty: 90 4RF hydrochlorothiazide 12.5 mg capsule 12.5 mg PO DAILY ferrous sulfate 325 mg (65 mg iron) tablet,delayed release (DR/EC) 325 mg PO DAILY (DME) blood-glucose meter [FreeStyle Lite Meter] Kit See Rx Instructions .Route Qty: 1 0RF Rx Instructions: As directed test blood sugar two times a day cyanocobalamin (vitamin B-12) 1,000 mcg tablet 1,000 mcg PO QAM sucralfate 100 mg/mL suspension 10 ml PO TID Rx Instructions: swish in mouth and swallow; use after food/drink Interventions: ED Discharge Assessment Last Done: 01/07/23 00:07 Discharge Date/Time: 01/07/23 00:11
[2023-01-07] VITALS: BP 124/77; PULSE 93; RESP 18; TEMP 36.3; O2SAT 98
== END 2023-01-07 00:11 | disposition home or self-care (01) ==
PROVIDERS: Emergency Provider Internal Medicine
DX: M54.42 Lumbago with sciatica, left side (principal); E11.9 Type 2 diabetes mellitus without complications; E78.5 Hyperlipidemia, unspecified; Z86.718 Personal history of other venous thrombosis and embolism; Z87.891 Personal history of nicotine dependence; Z79.84 Long term (current) use of oral hypoglycemic drugs; Z79.899 Other long term (current) drug therapy
CPT/HCPCS: 99283

== ENCOUNTER 2023-01-14 08:46 | Outpatient (AMB) | payer MEDICAID, SELFPAY ==
--- NOTE | 2023-01-14 08:52 | A.OFFVIS_ITS ---
Intake Vital Signs 01/14/23 08:57 Height 5 ft 3 in Weight 154 lb BMI 27.3 BP 110/70 Blood Pressure Location Lt brachial Position Sitting Intake Visit Reasons: Back abscesses x2, painful Intake Note: Patient is seen in office for evaluation of a 2 back abscesses. Patient c/o: onset 2 months ago, has increase in size, admits to burning pain, at times discharge pus , larger one has redness, denies any other concerns, not currently taking antibiotics Crisis Counselor Required: No Accompanied by: Self / Same As Patient Allergies Penicillins Allergy (Intermediate, Verified 01/14/23 08:59) HIVES sulfamethoxazole [From BACTRIM] Allergy (Intermediate, Verified 01/14/23 08:59) BLISTERS- DELGADO - NERVE ENDINGS IN HAND/ERYTHEMA MULTIFORM trimethoprim [From BACTRIM] Allergy (Intermediate, Verified 01/14/23 08:59) BLISTERS- DELGADO - NERVE ENDINGS IN HAND/ERYTHEMA MULTIFORM latex [Latex] Allergy (Mild, Verified 01/14/23 08:59) RASH theophylline Adverse Reaction (Intermediate, Verified 01/14/23 08:59) TACHYCARDIA TEGADERM Allergy (Intermediate, Uncoded 01/14/23 08:59) SKIN TEARS From COMPAZINE Adverse Reaction (Severe, Uncoded 01/14/23 08:59) SEIZURES Medication List - Last Reconciled 01/14/23 by Flaco Zambrano MD acarbose 25 mg PO TID 30 days albuterol sulfate 90 mcg/actuation 2 puffs inhalation Q4-6H PRN blood sugar diagnostic (FreeStyle Lite Strips) USE TO TEST BLOOD SUGAR TWICE DAILY blood-glucose meter (FreeStyle Lite Meter kit) As directed test blood sugar two times a day cholecalciferol (vitamin D3) 50 mcg PO DAILY clindamycin phosphate 1% 1 appl topical BID cyanocobalamin (vitamin B-12) 1,000 mcg PO QAM cyclobenzaprine 10 mg PO Q8H cyclobenzaprine 10 mg PO TID PRN ferrous sulfate 325 mg PO DAILY fluticasone propionate 50 mcg/actuation (Flonase Allergy Relief) 2 sprays intranasal DAILY hydrochlorothiazide 12.5 mg PO DAILY hydrocodone-acetaminophen 5-325 mg 1 tab PO Q4-6H PRN hydrocodone-acetaminophen 5-325 mg 1 tab PO Q6H PRN hydroxyzine HCl 50 mg PO BEDTIME lidocaine 5% (Lidoderm) 1 patch topical DAILY PRN MDD remove after 12 hours lidocaine 5% (Lidoderm) 1 patch topical DAILY metformin ER 500 mg PO BID oxycodone 5 mg PO BID PRN oxycodone 5 mg PO Q6H PRN pantoprazole 40 mg PO BID pramipexole 1 tab DAILY sertraline 1 tab PO BEDTIME sucralfate 10 mL PO TID thiamine HCl (vitamin B1) 100 mg PO DAILY tizanidine 1 tab PO BEDTIME HPI HPI Comments History of Present Illness Details 62-year-old female patient with a prior history of multiple skin infections returning today with 2 areas of persistent pain and drainage in the upper left posterior shoulder. She reports the lesion causing symptoms for the past 2 months without any improvement. She denies fever or chills but does report feeling very tired. She is not currently on any antibiotics. She has applied topical antibiotic without significant improvement. She is requesting excision. [facility] Medical History Anastomotic ulcer Anxiety Asthma Borderline diabetes Depression Diabetes type 2, controlled DVT (deep venous thrombosis) Dyslipidemia GERD (gastroesophageal reflux disease) High cholesterol History of restless legs syndrome Non-toxic multinodular goiter Surgical History History of excision of epidermal inclusion cyst (03/23/22) History of excision of mass (10/26/21) History of hysterectomy History of removal of cyst (07/28/22) History of surgery History of surgery on left wrist History of tooth extraction Hx of cholecystectomy Hx of elbow surgery Hx of esophagogastroduodenoscopy Hx of excision of epidermal inclusion cyst (12/25/21) Hx of hand surgery S/P gastric bypass S/P trigger finger release Family History Mother Diabetes mellitus CHF (congestive heart failure) Kidney failure Cervical cancer Brother No problems noted. Brother No problems noted. 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 1.5 cm epidermal inclusion cyst without erythema, tender to palpation, no discharge noted with palpation. 2. 1.5 cm epidermal inclusion cyst without erythema, tender to palpation, no discharge Neuro General: patient oriented x3 Extrem General: Yes no clubbing, cyanosis or edema Assessment & Plan Assessment & Plan (1) Sebaceous cyst: Code(s): L72.3 - Sebaceous cyst Plan 62-year-old female patient returning with 2 palpable sebaceous cyst of the posterior left shoulder which have been present for 2 months and are causing discomfort. Patient is requested excision. After discussion of the procedure, risks, and alternatives, she consents to the excision of the 2 posterior left shoulder cysts as a minor surgery. Coding Level of Care Code Est Pt Level 4 (41633) Diagnoses Sebaceous cyst L72.3
[2023-01-14 08:57] VITALS: BP 110/70; BMI 27.3
== END 2023-01-14 09:04 | disposition home or self-care (01) ==
PROVIDERS: Visit Provider Surgery
DX: L72.3 Sebaceous cyst (principal)
CPT/HCPCS: 99214

== ENCOUNTER → 2023-01-14 08:46 | Outpatient (BNVA) | payer MEDICAID, SELFPAY | PROVIDERS: Visit Provider Surgery | DX: L72.3 Sebaceous cyst (principal) | CPT/HCPCS: 99212 ==

== ENCOUNTER 2023-01-17 09:40 | Outpatient (REF) | payer MEDICAID, SELFPAY ==
[2023-01-17 14:50] LABS: Appearance Urine Clear; Color Urine Dark Yellow; Glucose Urine UA Negative (Negative); Leukocyte Esterase Urine Negative (Negative); Nitrite Urine Negative (Negative); PH 5.5 (5.0-9.0); Specific Gravity - Urine >= 1.030 (1.005-1.025); Urine Blood Negative (Negative); Urine Ketones Trace mg/dL (Negative); Urine Protein Trace mg/dL (Neg-Trace)
[2023-01-17 15:34] LABS: Alanine Aminotransferase 15 U/L (0-31); Albumin Level 3.9 g/dL (3.5-5.0); Alkaline Phosphatase 76 U/L (39-117); Anion Gap 15 (12-20); Aspartate Amino Transferase 16 U/L (5-31); Bilirubin Total 0.4 mg/dL (0.0-1.0); Blood Urea Nitrogen 17 mg/dL (9-16); Calcium 9.9 mg/dL (8.4-10.2); Carbon Dioxide 27 mmol/L (22-29); Chloride 105 mmol/L (96-108); Estimated Glomerular Filt Rate > 60; Glucose Fasting 105 mg/dL (60-99); Potassium 3.7 mmol/L (3.3-5.1); Sodium 143 mmol/L (135-145); Total Protein 6.4 g/dL (6.5-8.0)
== END 2023-01-17 09:41 | disposition home or self-care (01) ==
LOC: HO.CHCLDS 09:40
PROVIDERS: Visit Provider Internal Medicine
DX: F11.20 Opioid dependence, uncomplicated (principal)
CPT/HCPCS: 36415; 80053; 81003

== ENCOUNTER 2023-01-24 17:42 | Emergency (ER) | payer MEDICAID, SELFPAY ==
--- NOTE | ~2023-01-24 | CT_ITS ---
EXAMINATION: CT ABDOMEN AND PELVIS WITH CONTRAST CLINICAL INFORMATION: Pain. Gastric bypass. COMPARISON: 12/19/2022 TECHNIQUE: Multidetector volumetric images were obtained from the superior aspect of the liver through the pubic symphysis following administration 85 mL of Omnipaque 350 intravenous contrast. Sagittal and coronal reformatted images were obtained on the technologist's workstation. Oral contrast: No This CT examination was performed using dose optimization techniques as appropriate, variously including the following: *Automated exposure control *Adjustment of mA and/or kV according to patient size (this includes techniques or standardized protocols for targeted exams where dose is matched to indication/reason for exam; i.e. extremities or head) *Use of iterative reconstruction technique DLP: 474 mGy-cm FINDINGS: LUNG BASES: The visualized lung bases are unremarkable. LIVER, GALLBLADDER, AND BILIARY TREE: The liver is normal in size, shape, and attenuation. No focal hepatic lesion. Cholecystectomy. Mild intrahepatic and extrahepatic biliary ductal dilatation. No ductal filling defect. PANCREAS: Unremarkable. SPLEEN: Unremarkable. ADRENAL GLANDS: Unremarkable. KIDNEYS AND URETERS: The kidneys are normal in size, shape, and attenuation. No hydronephrosis, hydroureter, or calculi seen. No perinephric stranding. BLADDER: Unremarkable. GASTROINTESTINAL TRACT: Postsurgical changes of gastric bypass. No obstruction. No colonic wall thickening or inflammation. Scattered colonic diverticulosis without diverticulitis. Normal appendix. No free air or free fluid. ABDOMINAL WALL: No significant hernia is appreciated. LYMPH NODES: Normal. VASCULAR: Normal caliber aorta with mild atherosclerotic calcification. PELVIC VISCERA: No pelvic mass. OSSEOUS STRUCTURES: No acute or suspicious osseous abnormality. Mild degenerative changes of the spine and hips. CT/CT abdomen pelvis w IV con IMPRESSION: No acute findings in the abdomen or pelvis. Postsurgical changes of gastric bypass. No obstruction. Fleischner guidelines were followed.
[2023-01-24 18:33] VITALS: BP 113/66; PULSE 79; RESP 18; TEMP 36; O2SAT 97; BMI 26.0
--- NOTE | 2023-01-24 18:35 | ED.GENADULT ---
HPI - General Adult General Chief complaint: Abdominal Pain Stated complaint: stomach complications Time Seen by Provider: 01/25/23 01:23 Source: patient Mode of arrival: ambulatory Limitations: no limitations History of Present Illness HPI narrative: Patient was gastric bypass surgery 01/19, anastomosis ulcer with chronic pain after surgery with nausea and diarrhea had endoscopy on 12/24 did not reveal any gastro gastric fistula but CT scan was suggestive of that patient been having increasing pain able to manage vomiting 7-10 times and having same numbers of watery stool Related Data Home Medications Medication Instructions Recorded Confirmed hydrochlorothiazide 12.5 mg capsule 12.5 mg PO DAILY 05/09/20 01/14/23 hydroxyzine HCl 25 mg tablet 50 mg PO BEDTIME 06/04/20 01/14/23 pramipexole 0.25 mg tablet 1 tab DAILY 10/20/21 01/14/23 sertraline 100 mg tablet 1 tab PO BEDTIME 10/20/21 01/14/23 tizanidine 4 mg tablet 1 tab PO BEDTIME 10/20/21 01/14/23 ferrous sulfate 325 mg (65 mg 325 mg PO DAILY 06/01/22 01/14/23 iron) tablet,delayed release cyanocobalamin (vitamin B-12) 1,000 mcg PO QAM 06/03/22 01/14/23 1,000 mcg tablet metformin 500 mg tablet,extended 500 mg PO BID 06/03/22 01/14/23 release 24 hr sucralfate 100 mg/mL oral 10 ml PO TID 12/21/22 01/14/23 suspension Previous Rx's Medication Instructions Recorded cholecalciferol (vitamin D3) 50 50 mcg PO DAILY #30 caps 12/15/20 mcg (2,000 unit) capsule acarbose 25 mg tablet 25 mg PO TID 30 days #90 tabs 12/31/20 albuterol sulfate 90 mcg/actuation 2 puff inhalation Q4-6H PRN 06/21/21 aerosol inhaler shortness of breath or wheezing #6.7 grams fluticasone propionate 50 2 spray intranasal DAILY #16 grams 06/21/21 mcg/actuation nasal spray,suspension (Flonase Allergy Relief) blood-glucose meter (FreeStyle #1 ea 08/21/21 Lite Meter kit) blood sugar diagnostic (FreeStyle #150 strips 03/30/22 Lite Strips) thiamine HCl (vitamin B1) 100 mg 100 mg PO DAILY #90 tabs 06/07/22 tablet lidocaine 5 % topical patch 1 patch topical DAILY PRN pain #30 08/13/22 (Lidoderm) ea hydrocodone 5 mg-acetaminophen 325 1 tab PO Q4-6H PRN pain #5 tabs 10/14/22 mg tablet hydrocodone 5 mg-acetaminophen 325 1 tab PO Q6H PRN pain #10 tabs 10/14/22 mg tablet oxycodone 5 mg tablet 5 mg PO BID PRN pain #5 tabs 10/31/22 clindamycin phosphate 1 % topical 1 appl topical BID #30 grams 11/07/22 gel cyclobenzaprine 10 mg tablet 10 mg PO TID PRN muscle spasm #10 11/10/22 tabs lidocaine 5 % topical patch 1 patch topical DAILY #15 ea 11/10/22 (Lidoderm) pantoprazole 40 mg tablet,delayed 40 mg PO BID #60 tabs 12/20/22 release cyclobenzaprine 10 mg tablet 10 mg PO Q8H #20 tabs 01/07/23 oxycodone 5 mg tablet 5 mg PO Q6H PRN pain #20 tabs 01/07/23 ondansetron 4 mg disintegrating 4 mg PO Q6-8H PRN nausea and 01/25/23 tablet vomiting #10 tabs tramadol 50 mg tablet 50 mg PO Q6H PRN pain #20 tabs 01/25/23 Allergies Allergy/AdvReac Type Severity Reaction Status Date / Time Penicillins Allergy Intermediate HIVES Verified 01/24/23 18:33 sulfamethoxazole Allergy Intermediate BLISTERS- Verified 01/24/23 18:33 [From BACTRIM] DELGADO - NERVE ENDINGS IN HAND/ERYTHEMA MULTIFORM trimethoprim [From BACTRIM] Allergy Intermediate BLISTERS- Verified 01/24/23 18:33 DELGADO - NERVE ENDINGS IN HAND/ERYTHEMA MULTIFORM latex [Latex] Allergy Mild RASH Verified 01/24/23 18:33 theophylline AdvReac Intermediate TACHYCARDIA Verified 01/24/23 18:33 TEGADERM Allergy Intermediate SKIN TEARS Uncoded 01/14/23 08:59 From COMPAZINE AdvReac Severe SEIZURES Uncoded 01/14/23 08:59 Review of Systems Review of Systems: Yes all other systems are reviewed and are negative PMFSH Past Medical History Medical History Anastomotic ulcer Anxiety Asthma Borderline diabetes Depression Diabetes type 2, controlled DVT (deep venous thrombosis) Dyslipidemia GERD (gastroesophageal reflux disease) High cholesterol History of restless legs syndrome Non-toxic multinodular goiter Surgical History History of excision of epidermal inclusion cyst (03/23/22) History of excision of mass (10/26/21) History of hysterectomy History of removal of cyst (07/28/22) History of surgery History of surgery on left wrist History of tooth extraction Hx of cholecystectomy Hx of elbow surgery Hx of esophagogastroduodenoscopy Hx of excision of epidermal inclusion cyst (12/25/21) Hx of hand surgery S/P gastric bypass S/P trigger finger release Family History Family History Mother Diabetes mellitus CHF (congestive heart failure) Kidney failure Cervical cancer Brother No problems noted. Brother No problems noted. Social History Social History Household Members: Spouse Are you a primary career placement services counselor to a significant other at home: No Do you presently have visiting nurse or other home services: No Alcohol intake: never Patient Tobacco Use Status: Former Tobacco user Quit Date: 6 months ago Tobacco use type: Cigarette Cigarette Packs Per Day: 0 Cigarettes Per Day: 1 Years Smoked: 30 Smoked in Last 30 Days: Yes Use of substances other than those prescribed or required for medical reasons: No Advance Directives: No Advance Directives Information Provided: Yes Patient : No Current occupational status: employed 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 Oriented X3. No acute distress. Eyes: No pallor or icterus ENT: Pharynx normal. Oral Mucosa moist Neck: Normal inspection. Neck supple. CVS: Normal heart rate and rhythm. Pulses normal. Respiratory: No respiratory distress. Equal air entry bilateral, no wheezing/rales/rhonchi Abdomen: Soft and nontender. Bowel sounds are present, no mass palpable, no CVA tenderness Skin: Skin warm and dry. Normal skin color. Normal skin turgor. Extremities: No lower extremity edema. No calf tenderness Neuro: Oriented X 3. No motor deficit. No sensory deficit.No cerebellar signs , cranial nerves II-XII intact Course Course Course Narrative: RME- 62 year old female presents for evaluation of upper abdominal pain and vomiting. She reports having had bariatric surgery 3 years ago. Just over 1 month ago she had a CT scan that showed contrast possibly within the excluded part of the stomach within the possibility of gastrogastric fistula. Patient reports since that time her pain and vomiting have been worse. She reports that she cannot hold any solid food down. Plan for repeat labs, CT Medications Administered Discontinued Medications Generic Name Dose Route Start Last Admin Trade Name Thomas PRN Reason Stop Dose Admin Barium Sulfate 900 ml 01/25/23 02:50 01/25/23 02:51 Barium Sulfate Oral (Mocha) 450 Ml Oral.Susp PO 01/25/23 02:51 900 ml ONCE ONE Administration Sodium Chloride 1,000 mls @ 999 mls/hr 01/25/23 01:56 01/25/23 03:30 Ns IV 01/25/23 02:56 Infused .Q1H1M ONE Infusion Iohexol 85 ml 01/25/23 03:00 01/25/23 03:01 Iohexol 350 Mg/Ml 100 Ml Infus..Btl IV 01/25/23 03:01 85 ml ONCE ONE Administration Morphine Sulfate 4 mg 01/25/23 05:44 01/25/23 05:50 Morphine Sulfate 4 Mg/Ml Cartridge IVPUSH 01/25/23 05:45 4 mg ONCE ONE Administration Protocol Ondansetron HCl 4 mg 01/25/23 05:44 01/25/23 05:50 Ondansetron Hcl 4 Mg/2 Ml Vial IVPUSH 01/25/23 05:45 4 mg ONCE ONE Administration Medical Decision Making Medical Decision Making MDM Narrative: Patient chronic abdominal pain status post gastric bypass as multiple workup negative recent endoscopy was also negative CT scan was ordered as outpatient which was negative discharge patient home on tramadol and Zofran Differential Diagnosis Differential Diagnoses: The differential diagnosis associated with the presentation includes Small-bowel obstruction/peptic ulcer/Pulse anastomosis ulcer Lab Data 01/24/23 19:35 01/24/23 19:35 Labs: Lab Results 01/24/23 01/24/23 01/24/23 Range/Units 19:35 19:35 19:35 WBC 7.8 (4.8-10.8) X10*3/uL RBC 4.58 (4.20-5.50) X10*6/uL Hgb 13.5 (12.0-16.0) g/dl Hct 40.5 (37.0-47.0) % MCV 88.4 (80.0-98.0) fL MCH 29.5 (27.0-33.0) pg MCHC 33.3 (31.0-35.0) g/dl RDW 12.2 (11.0-16.0) % Plt Count 212 (160-400) X10*3/uL MPV 9.9 (9.4-12.3) fL Immature Gran % (Auto) 0.4 (0.0-0.4) % Neut % (Auto) 57.1 (45-73) % Lymph % (Auto) 33.6 (20-40) % Chase % (Auto) 5.8 (2-11) % Eos % (Auto) 2.7 (0-4) % Baso % (Auto) 0.4 (0-2) % Lymph # (Auto) 2.6 (1.2-4.9) X10*3/uL Chase # (Auto) 0.5 (0.1-1.2) X10*3/uL Eos # (Auto) 0.2 (0.0-0.4) X10*3/uL Baso # (Auto) 0.0 (0.0-0.2) X10*3/uL Abs Immat Gran (auto) 0.03 (0.00-0.03) X10*3/uL Absolute Neuts (auto) 4.5 (2.0-8.3) x10*3/uL Absolute Nucleated RBC 0.000 (0.0-0.012) X10*3/uL Nucleated RBC % (auto) 0.0 (0.0-0.2) /100WBC PT 10.6 (10.0-13.1) SEC INR 0.9 (0.9-1.1) APTT 31.1 (26.0-36.4) SEC Sodium 138 (135-145) mmol/L Potassium 3.6 (3.3-5.1) mmol/L Chloride 104 (96-108) mmol/L Carbon Dioxide 28 (22-29) mmol/L Anion Gap 10 L (12-20) BUN 18 H (9-16) mg/dL Creatinine 0.73 (0.5-1.4) mg/dL Estim Creat Clear Calc 75.1 Estimated GFR > 60 Random Glucose 113 (60-115) mg/dL Lactic Acid (0.5-2.0) mmol/L Calcium 9.3 D (8.4-10.2) mg/dL Magnesium 2.0 (1.6-2.6) mg/dL Total Bilirubin 0.3 (0.0-1.0) mg/dL AST 15 (5-31) U/L ALT 19 (0-31) U/L Alkaline Phosphatase 81 (39-117) U/L Total Protein 6.8 (6.5-8.0) g/dL Albumin 4.0 (3.5-5.0) g/dL Lipase 18 (8-78) U/L // Range/Units 19:35 WBC (4.8-10.8) X10*3/uL RBC (4.20-5.50) X10*6/uL Hgb (12.0-16.0) g/dl Hct (37.0-47.0) % MCV (80.0-98.0) fL MCH (27.0-33.0) pg MCHC (31.0-35.0) g/dl RDW (11.0-16.0) % Plt Count (160-400) X10*3/uL MPV (9.4-12.3) fL Immature Gran % (Auto) (0.0-0.4) % Neut % (Auto) (45-73) % Lymph % (Auto) (20-40) % Chase % (Auto) (2-11) % Eos % (Auto) (0-4) % Baso % (Auto) (0-2) % Lymph # (Auto) (1.2-4.9) X10*3/uL Chase # (Auto) (0.1-1.2) X10*3/uL Eos # (Auto) (0.0-0.4) X10*3/uL Baso # (Auto) (0.0-0.2) X10*3/uL Abs Immat Gran (auto) (0.00-0.03) X10*3/uL Absolute Neuts (auto) (2.0-8.3) x10*3/uL Absolute Nucleated RBC (0.0-0.012) X10*3/uL Nucleated RBC % (auto) (0.0-0.2) /100WBC PT (10.0-13.1) SEC INR (0.9-1.1) APTT (26.0-36.4) SEC Sodium (135-145) mmol/L Potassium (3.3-5.1) mmol/L Chloride (96-108) mmol/L Carbon Dioxide (22-29) mmol/L Anion Gap (12-20) BUN (9-16) mg/dL Creatinine (0.5-1.4) mg/dL Estim Creat Clear Calc Estimated GFR Random Glucose (60-115) mg/dL Lactic Acid 0.6 (0.5-2.0) mmol/L Calcium (8.4-10.2) mg/dL Magnesium (1.6-2.6) mg/dL Total Bilirubin (0.0-1.0) mg/dL AST (5-31) U/L ALT (0-31) U/L Alkaline Phosphatase (39-117) U/L Total Protein (6.5-8.0) g/dL Albumin (3.5-5.0) g/dL Lipase (8-78) U/L Discharge Plan Discharge Clinical Impression: S/P gastric bypass, Abdominal pain Patient Disposition: Home, Self-Care Instructions: Abdominal Pain (ED) Additional Instructions: Drink plenty of fluids Medicine for nausea and pain as needed Follow-up with your surgeon Your CT scan of the abdomen is negative for any acute pathology Prescriptions: New tramadol 50 mg tablet 50 mg PO Q6H PRN (Reason: pain) Qty: 20 0RF ondansetron 4 mg tablet,disintegrating 4 mg PO Q6-8H PRN (Reason: nausea and vomiting) Qty: 10 0RF No Action cholecalciferol (vitamin D3) 50 mcg (2,000 unit) capsule 50 mcg PO DAILY Qty: 30 11RF (DME) FreeStyle Lite Strips Strip See Rx Instructions .ROUTE .COMPLEX Qty: 150 6RF Dose Instruction: USE TO TEST BLOOD SUGAR TWICE DAILY Rx Instructions: USE TO TEST BLOOD SUGAR TWICE DAILY thiamine HCl (vitamin B1) 100 mg tablet 100 mg PO DAILY Qty: 90 3RF hydrocodone-acetaminophen 5-325 mg tablet 1 tab PO Q6H PRN (Reason: pain) Qty: 10 0RF Rx Instructions: Partial Fill upon patient request. pantoprazole 40 mg tablet,delayed release (DR/EC) 40 mg PO BID Qty: 60 6RF hydroxyzine HCl 25 mg tablet 50 mg PO BEDTIME sertraline 100 mg tablet 1 tab PO BEDTIME pramipexole 0.25 mg tablet 1 tab DAILY tizanidine 4 mg tablet 1 tab PO BEDTIME lidocaine [Lidoderm] 5 % adhesive patch,medicated 1 patch topical DAILY MDD remove after 12 hours PRN (Reason: pain) Qty: 30 0RF Rx Instructions: leave on most painful area for up to 12 hrs albuterol sulfate 90 mcg/actuation HFA aerosol inhaler 2 puff inhalation Q4-6H PRN (Reason: shortness of breath or wheezing) Qty: 6.7 0RF fluticasone propionate [Flonase Allergy Relief] 50 mcg/actuation spray,suspension 2 spray intranasal DAILY Qty: 16 0RF Rx Instructions: administer into each nostril metformin 500 mg tablet extended release 24 hr 500 mg PO BID oxycodone 5 mg tablet 5 mg PO BID PRN (Reason: pain) Qty: 5 0RF Rx Instructions: Partial Fill upon patient request. hydrocodone-acetaminophen 5-325 mg tablet 1 tab PO Q4-6H PRN (Reason: pain) Qty: 5 0RF Rx Instructions: Partial Fill upon patient request. clindamycin phosphate 1 % gel 1 appl topical BID Qty: 30 0RF cyclobenzaprine 10 mg tablet 10 mg PO TID PRN (Reason: muscle spasm) Qty: 10 0RF lidocaine [Lidoderm] 5 % adhesive patch,medicated 1 patch topical DAILY Qty: 15 0RF Rx Instructions: leave on most painful area for up to 12 hrs cyclobenzaprine 10 mg tablet 10 mg PO Q8H Qty: 20 0RF oxycodone 5 mg tablet 5 mg PO Q6H PRN (Reason: pain) Qty: 20 0RF Rx Instructions: Partial Fill upon patient request. acarbose 25 mg tablet 25 mg PO TID 30 Days Qty: 90 4RF hydrochlorothiazide 12.5 mg capsule 12.5 mg PO DAILY ferrous sulfate 325 mg (65 mg iron) tablet,delayed release (DR/EC) 325 mg PO DAILY (DME) blood-glucose meter [FreeStyle Lite Meter] Kit See Rx Instructions .Route Qty: 1 0RF Rx Instructions: As directed test blood sugar two times a day cyanocobalamin (vitamin B-12) 1,000 mcg tablet 1,000 mcg PO QAM sucralfate 100 mg/mL suspension 10 ml PO TID Rx Instructions: swish in mouth and swallow; use after food/drink
[2023-01-24 19:40] LABS: MANUAL DIFF FLAG NO
[2023-01-24 19:45] LABS: INTERNATIONAL NORM RATIO 0.9 (0.9-1.1); Prothrombin Time 10.6 SEC (10.0-13.1)
[2023-01-24 19:48] LABS: Partial Thromboplastin Time 31.1 SEC (26.0-36.4)
[2023-01-24 19:50] LABS: Basophils Percent Auto 0.4 % (0-2); Eosinophils Absolute Auto 0.2 X10*3/uL (0.0-0.4); Eosinophils Percent Auto 2.7 % (0-4); Hematocrit 40.5 % (37.0-47.0); Hemoglobin 13.5 g/dl (12.0-16.0); Imm Gran Abs Auto 0.03 X10*3/uL (0.00-0.03); Imm Gran Pct Auto 0.4 % (0.0-0.4); Lymphocytes Absolute Auto 2.6 X10*3/uL (1.2-4.9); Lymphocytes Percent Auto 33.6 % (20-40); Mean Corpuscular HGB Conc 33.3 g/dl (31.0-35.0); Mean Corpuscular Hemoglobin 29.5 pg (27.0-33.0); Mean Corpuscular Volume 88.4 fL (80.0-98.0); Mean Platelet Volume 9.9 fL (9.4-12.3); Monocytes Absolute Auto 0.5 X10*3/uL (0.1-1.2); Monocytes Percent Auto 5.8 % (2-11); Neutrophils Absolute Auto 4.5 x10*3/uL (2.0-8.3); Neutrophils Percent Auto 57.1 % (45-73); Platelet Count 212 X10*3/uL (160-400); Red Blood Count 4.58 X10*6/uL (4.20-5.50); Red Cell Distribution Width 12.2 % (11.0-16.0); White Blood Count 7.8 X10*3/uL (4.8-10.8)
[2023-01-24 19:56] LABS: Alanine Aminotransferase 19 U/L (0-31); Alkaline Phosphatase 81 U/L (39-117); Anion Gap 10 (12-20); Aspartate Amino Transferase 15 U/L (5-31); Bilirubin Total 0.3 mg/dL (0.0-1.0); Blood Urea Nitrogen 18 mg/dL (9-16); Calcium 9.3 mg/dL (8.4-10.2); Carbon Dioxide 28 mmol/L (22-29); Chloride 104 mmol/L (96-108); Creatinine Clr Calc Pharmacy 75.1; Estimated Glomerular Filt Rate > 60; Glucose Random 113 mg/dL (60-115); Lipase 18 U/L (8-78); Potassium 3.6 mmol/L (3.3-5.1); Sodium 138 mmol/L (135-145); Total Protein 6.8 g/dL (6.5-8.0)
[2023-01-24 19:59] LABS: Lactic Acid 0.6 mmol/L (0.5-2.0)
--- NOTE | 2023-01-25 01:30 | PC.NURSE ---
this rn assumed care of pt at 0120. pt calm and cooperative. iv line placed 20g L AC for ordered CT scan. pt changed into hospital gown
[2023-01-25] MEDS: 0.9 % Sodium Chloride 1,000 ML 999 ML IV (02:05)
[2023-01-25 02:15] VITALS: BP 108/63; PULSE 63; RESP 18; TEMP 36.7; O2SAT 98
[2023-01-25] MEDS: Barium Sulfate Oral (Mocha) 450 ML ORAL.SUSP 900 ML PO (02:51)
[2023-01-25] MEDS: iohexoL 350 MG/ML 100 ML INFUS..BTL 85 ML IV (03:01)
[2023-01-25 03:51] VITALS: BP 99/65; PULSE 82; RESP 18; TEMP 36.8; O2SAT 94
--- NOTE | 2023-01-25 05:26 | PC.NURSE ---
pt sleeping at this time. disposition pending. IVF completed
[2023-01-25] MEDS: ondansetron HCL 4 MG/2 ML VIAL IVPUSH (05:50)
[2023-01-25] MEDS: Morphine Sulfate 4 MG/ML CARTRIDGE IVPUSH (05:50)
[2023-01-25 06:17] VITALS: BP 114/73; PULSE 68; RESP 14; O2SAT 95
--- NOTE | 2023-01-25 06:38 | PC.NURSE ---
pt calm and cooperative. pt ambulatory at discharge. vss. pt provided with discharge packet. pt verbalized understanding of discharge plan
== END 2023-01-25 06:39 | disposition home or self-care (01) ==
PROVIDERS: Physician Assistant; Emergency Provider Internal Medicine
DX: R10.9 Unspecified abdominal pain (principal); E11.9 Type 2 diabetes mellitus without complications; E78.5 Hyperlipidemia, unspecified; Z87.891 Personal history of nicotine dependence; Z98.84 Bariatric surgery status; Z79.84 Long term (current) use of oral hypoglycemic drugs
CPT/HCPCS: 36415; 74177; 80053; 83605; 83690; 83735; 85025; 85610; 85730; 96361; 96374; 96375; 99284; J2270; J2405; Q9967

== ENCOUNTER 2023-02-03 12:52 | Outpatient (REF) | payer MEDICAID, SELFPAY ==
[2023-02-03 13:00] VITALS: BP 124/67; PULSE 81; RESP 16; TEMP 36.4; O2SAT 81
[2023-02-03 13:30] VITALS: BP 114/61; PULSE 76; RESP 16; O2SAT 98
[2023-02-03 13:33] VITALS: BMI 26.9
--- NOTE | 2023-02-03 13:39 | P.OP_ITS ---
Operative Note Operative Note Date of Service: 02/03/23 Narrative: Preoperative diagnosis: sebaceous cyst x2 left upper back Postoperative diagnosis: same Procedure: excision of sebaceous cyst left upper back Surgeon: Flaco Zambrano MD Foreign Student Adviser: none Anesthesia: local Indications for procedure: 62-year-old female patient with 2 painful sebaceous cyst of the upper back each measuring approximately 1.5 cm in diameter Operative findings: sebaceous cyst x2 left upper back Specimen: sebaceous cyst left upper back x 2 Estimated blood loss: less than 2 mL Complications: none Procedure details: patient was brought to the minor surgery suite and placed in a prone position. The site of surgery was confirmed by the patient in the left upper back. After assuring informed consent, the skin was prepped with Betadine and draped in a sterile fashion. Local anesthesia was then infiltrated around the lesion. Elliptical incision oriented transversely was then created around both cysts. The incision was carried out through subcutaneous tissue and around the cyst weber. Both lesions were passed off the table and sent to pathology and a single specimen bottle. After assuring adequate hemostasis the dermis was reapproximated using interrupted 3-0 Polysorb sutures. Skin was then closed using interrupted 4-0 nylon sutures. Sterile dressings concluding 2 x 2 gauze and Tegaderm were then applied. The patient tolerated the procedure well. She was discharged home in stable condition.
== END 2023-02-03 12:53 | disposition home or self-care (01) ==
LOC: HO.MS 12:52
PROVIDERS: Visit Provider Surgery
PROC: (CPT 11402; principal; 2023-02-03 13:00)
DX: L72.0 Epidermal cyst (principal)
CPT/HCPCS: 11402 ×2; 88304

== ENCOUNTER → 2023-02-03 12:52 | Outpatient (BNV) | payer MEDICAID, SELFPAY | PROVIDERS: Visit Provider Surgery | DX: L72.3 Sebaceous cyst (principal) | CPT/HCPCS: 11401; 11402 ==

== ENCOUNTER 2023-02-10 20:34 | Emergency (ER) | payer MEDICAID, SELFPAY ==
--- NOTE | ~2023-02-10 | US_ITS ---
EXAMINATION: US VENOUS ULTRASOUND WITH DOPPLER LOWER EXTREMITY, BILATERAL CLINICAL INFORMATION: Swelling. COMPARISON: None available. TECHNIQUE: Ultrasound of the deep veins is performed from the hip to the calf with compression sonography and color and pulse Doppler assessment. Spectral analysis with color-flow imaging is performed. FINDINGS: RIGHT: There is normal venous compression and respiratory variation and augmented flow. The visualized common femoral vein, superficial femoral vein, profunda femoral vein, popliteal vein, and the trifurcation region shows no evidence of deep venous thrombosis. There is no significant popliteal fossa cyst. LEFT: There is normal venous compression and respiratory variation and augmented flow. The visualized common femoral vein, superficial femoral vein, profunda femoral vein, popliteal vein, and the trifurcation region shows no evidence of deep venous thrombosis. There is no significant popliteal fossa cyst. Prominent bilateral inguinal lymph nodes are noted measuring up to 2.6 cm on the left. There is a 2.3 x 0.8 x 1.5 cm right-sided Freeman's cyst. If the patient's symptoms persist, followup ultrasound in 5 days 7 days might be of value to exclude proximal propagation from a non-visualized calf vein. US/US venous duplex LE BI IMPRESSION: No DVT demonstrated in the lower extremity.
[2023-02-10 21:13] VITALS: BP 115/62; PULSE 81; RESP 18; TEMP 36.6; O2SAT 97; BMI 27.3
[2023-02-10 22:12] LABS: MANUAL DIFF FLAG NO
[2023-02-10 22:16] LABS: Basophils Percent Auto 0.4 % (0-2); Eosinophils Absolute Auto 0.2 X10*3/uL (0.0-0.4); Eosinophils Percent Auto 2.4 % (0-4); Imm Gran Abs Auto 0.03 X10*3/uL (0.00-0.03); Imm Gran Pct Auto 0.4 % (0.0-0.4); Lymphocytes Absolute Auto 2.5 X10*3/uL (1.2-4.9); Lymphocytes Percent Auto 29.7 % (20-40); Mean Corpuscular HGB Conc 33.3 g/dl (31.0-35.0); Mean Corpuscular Hemoglobin 29.3 pg (27.0-33.0); Mean Corpuscular Volume 87.8 fL (80.0-98.0); Mean Platelet Volume 9.7 fL (9.4-12.3); Monocytes Absolute Auto 0.4 X10*3/uL (0.1-1.2); Neutrophils Absolute Auto 5.2 x10*3/uL (2.0-8.3); Neutrophils Percent Auto 62.1 % (45-73); Platelet Count 205 X10*3/uL (160-400); Red Blood Count 4.44 X10*6/uL (4.20-5.50); Red Cell Distribution Width 12.4 % (11.0-16.0); White Blood Count 8.4 X10*3/uL (4.8-10.8)
[2023-02-10 22:31] LABS: Alanine Aminotransferase 15 U/L (0-31); Albumin Level 3.8 g/dL (3.5-5.0); Alkaline Phosphatase 76 U/L (39-117); Anion Gap 11 (12-20); Aspartate Amino Transferase 14 U/L (5-31); Bilirubin Total 0.4 mg/dL (0.0-1.0); Blood Urea Nitrogen 14 mg/dL (9-16); Calcium 9.3 mg/dL (8.4-10.2); Carbon Dioxide 29 mmol/L (22-29); Chloride 106 mmol/L (96-108); Creatinine Clr Calc Pharmacy 66.7; Estimated Glomerular Filt Rate > 60; Glucose Random 211 mg/dL (60-115); Potassium 3.7 mmol/L (3.3-5.1); Sodium 142 mmol/L (135-145); Total Protein 6.5 g/dL (6.5-8.0)
[2023-02-10 23:28] VITALS: BP 114/73; PULSE 72; RESP 16; TEMP 36.4; O2SAT 97
[2023-02-11 00:04] VITALS: BP 103/64; PULSE 60
[2023-02-11 00:05] VITALS: BP 106/68; BP 109/67; PULSE 60; PULSE 64
[2023-02-11 00:07] VITALS: BP 118/70; PULSE 62; RESP 16; TEMP 36.5; O2SAT 97
--- NOTE | 2023-02-11 00:09 | MHC.EDTECH ---
this pct just assumed care of patient ,orthostatics vitals taken ,patient resting quietly in bed .
[2023-02-11 00:17] LABS: B Type Natriuretic Peptide 11 pg/mL (<100)
--- NOTE | 2023-02-11 00:17 | ED_ITS ---
HPI - General Adult General Chief complaint: General Medical Stated complaint: swollen feet,dizziness Time Seen by Provider: 02/10/23 23:44 Source: patient, RN notes reviewed and old records reviewed Mode of arrival: ambulatory Limitations: no limitations History of Present Illness HPI narrative: 62-year-old female presents for evaluation of multiple complaints. Patient reports that she has had swollen legs left greater than right for the last 2 weeks Denies any history of heart failure She reports that she is on hydrochlorothiazide for blood pressure Patient reports that she has a history of vertigo and has been feeling dizzy since last night She describes the dizziness as ?room spinning. ? Denies any chest pain or shortness of breath Patient reports a history of DVT Not anticoagulated Related Data Home Medications Medication Instructions Recorded Confirmed hydrochlorothiazide 12.5 mg capsule 12.5 mg PO DAILY 05/09/20 01/14/23 hydroxyzine HCl 25 mg tablet 50 mg PO BEDTIME 06/04/20 01/14/23 pramipexole 0.25 mg tablet 1 tab DAILY 10/20/21 01/14/23 sertraline 100 mg tablet 1 tab PO BEDTIME 10/20/21 01/14/23 tizanidine 4 mg tablet 1 tab PO BEDTIME 10/20/21 01/14/23 ferrous sulfate 325 mg (65 mg 325 mg PO DAILY 06/01/22 01/14/23 iron) tablet,delayed release cyanocobalamin (vitamin B-12) 1,000 mcg PO QAM 06/03/22 01/14/23 1,000 mcg tablet metformin 500 mg tablet,extended 500 mg PO BID 06/03/22 01/14/23 release 24 hr sucralfate 100 mg/mL oral 10 ml PO TID 12/21/22 01/14/23 suspension Previous Rx's Medication Instructions Recorded cholecalciferol (vitamin D3) 50 50 mcg PO DAILY #30 caps 12/15/20 mcg (2,000 unit) capsule acarbose 25 mg tablet 25 mg PO TID 30 days #90 tabs 12/31/20 albuterol sulfate 90 mcg/actuation 2 puff inhalation Q4-6H PRN 06/21/21 aerosol inhaler shortness of breath or wheezing #6.7 grams fluticasone propionate 50 2 spray intranasal DAILY #16 grams 06/21/21 mcg/actuation nasal spray,suspension (Flonase Allergy Relief) blood-glucose meter (FreeStyle #1 ea 08/21/21 Lite Meter kit) blood sugar diagnostic (FreeStyle #150 strips 03/30/22 Lite Strips) thiamine HCl (vitamin B1) 100 mg 100 mg PO DAILY #90 tabs 06/07/22 tablet lidocaine 5 % topical patch 1 patch topical DAILY PRN pain #30 08/13/22 (Lidoderm) ea hydrocodone 5 mg-acetaminophen 325 1 tab PO Q4-6H PRN pain #5 tabs 10/14/22 mg tablet hydrocodone 5 mg-acetaminophen 325 1 tab PO Q6H PRN pain #10 tabs 10/14/22 mg tablet oxycodone 5 mg tablet 5 mg PO BID PRN pain #5 tabs 10/31/22 clindamycin phosphate 1 % topical 1 appl topical BID #30 grams 11/07/22 gel cyclobenzaprine 10 mg tablet 10 mg PO TID PRN muscle spasm #10 11/10/22 tabs lidocaine 5 % topical patch 1 patch topical DAILY #15 ea 11/10/22 (Lidoderm) pantoprazole 40 mg tablet,delayed 40 mg PO BID #60 tabs 12/20/22 release cyclobenzaprine 10 mg tablet 10 mg PO Q8H #20 tabs 01/07/23 oxycodone 5 mg tablet 5 mg PO Q6H PRN pain #20 tabs 01/07/23 ondansetron 4 mg disintegrating 4 mg PO Q6-8H PRN nausea and 01/25/23 tablet vomiting #10 tabs tramadol 50 mg tablet 50 mg PO Q6H PRN pain #20 tabs 01/25/23 oxycodone 5 mg tablet 5 mg PO Q6H PRN pain (scale score 02/03/23 7-10) #10 tabs meclizine 25 mg tablet 25 mg PO TID PRN dizziness #20 tabs 02/11/23 Allergies Allergy/AdvReac Type Severity Reaction Status Date / Time Penicillins Allergy Intermediate HIVES Verified 01/24/23 18:33 sulfamethoxazole Allergy Intermediate BLISTERS- Verified 01/24/23 18:33 [From BACTRIM] DELGADO - NERVE ENDINGS IN HAND/ERYTHEMA MULTIFORM trimethoprim [From BACTRIM] Allergy Intermediate BLISTERS- Verified 01/24/23 18:33 DELGADO - NERVE ENDINGS IN HAND/ERYTHEMA MULTIFORM latex [Latex] Allergy Mild RASH Verified 01/24/23 18:33 theophylline AdvReac Intermediate TACHYCARDIA Verified 01/24/23 18:33 TEGADERM Allergy Intermediate SKIN TEARS Uncoded 01/14/23 08:59 From COMPAZINE AdvReac Severe SEIZURES Uncoded 01/14/23 08:59 Review of Systems Constitutional: Constitutional: Denies chills, Denies fever(s) and Denies headache(s) ENT: Reports vertigo and Denies headache(s) Cardiovascular: Cardiovascular: Denies chest pain and Denies dyspnea Respiratory: Respiratory: Denies dyspnea Gastrointestinal: Gastrointestinal: Denies abdominal pain, Denies nausea and Denies vomiting Genitourinary: Genitourinary: Denies dysuria Musculoskeletal: Comments: Pain in both legs Integumentary/Breasts: Skin/Breast: Denies rash Neurologic: Reports vertigo and Denies headache(s) [facility] Past Medical History Medical History (Updated 02/11/23 @ 01:37 by Jose Valencia) Anastomotic ulcer Anxiety Asthma Borderline diabetes Depression Diabetes type 2, controlled DVT (deep venous thrombosis) Dyslipidemia GERD (gastroesophageal reflux disease) High cholesterol History of restless legs syndrome Non-toxic multinodular goiter Surgical History (Updated 02/09/23 @ 11:11 by ADITYA Dickerson) H/O removal of cyst (02/03/23) History of excision of epidermal inclusion cyst (03/23/22) History of excision of mass (10/26/21) History of hysterectomy History of removal of cyst (07/28/22) History of surgery History of surgery on left wrist History of tooth extraction Hx of cholecystectomy Hx of elbow surgery Hx of esophagogastroduodenoscopy Hx of excision of epidermal inclusion cyst (12/25/21) Hx of hand surgery S/P gastric bypass S/P trigger finger release Family History Family History Mother Diabetes mellitus CHF (congestive heart failure) Kidney failure Cervical cancer Brother No problems noted. Brother No problems noted. Social History Social History Household Members: Spouse Are you a primary primary care pediatrician to a significant other at home: No Do you presently have visiting nurse or other home services: No Alcohol intake: never Patient Tobacco Use Status: Former Tobacco user Quit Date: 6 months ago Tobacco use type: Cigarette Cigarette Packs Per Day: 0 Cigarettes Per Day: 1 Years Smoked: 30 Smoked in Last 30 Days: No Use of substances other than those prescribed or required for medical reasons: No Advance Directives: No Advance Directives Information Provided: No Current occupational status: employed 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 Physical Exam ED Vital Signs: Vital Signs - 24 hr 02/10/23 21:13 02/10/23 23:28 02/11/23 00:04 Temperature 97.9 F 97.6 F Pulse Rate 81 72 60 Respiratory Rate 18 16 Blood Pressure 115/62 114/73 103/64 Pulse Oximetry 97 97 Oxygen Delivery Method Room Air Room Air 02/11/23 00:07 02/11/23 00:05 02/11/23 00:05 Temperature 97.7 F Pulse Rate 62 60 64 Respiratory Rate 16 Blood Pressure 118/70 109/67 106/68 Pulse Oximetry 97 Oxygen Delivery Method Room Air BMI result Body Mass Index 27.3 Const General: healthy appearing, comfortable, no acute distress, alert and awake Nutritional Appearance: well nourished Orientation/consciousness: patient oriented x3 HENMT Head: Yes normocephalic and Yes atraumatic Eyes Eyelids: Yes eyelids normal Conjunctivae: conjunctivae normal Sclerae: sclerae normal Corneas: corneas normal Pupils: Equal, round and reactive pupils present EOM: EOMs intact bilaterally Neck Neck: Yes full ROM Resp Effort & Inspection: normal respiratory effort, able to speak in complete sentences, no audible wheezes and not labored Auscultation: clear to auscultation bilaterally GI Inspection: No distended Palpation (GI): Soft to palpation, not firm, nontender, no guarding and not rigid Skin General skin exam: elasticity normal Neuro General: patient oriented x3 Cranial nerves: Yes Equal, round and reactive pupils present and Yes Bilaterally intact EOM present Cognition (Neuro): normal cognition Extrem Other: Moving all extremities well without any obvious deformities 2+ pitting edema to the right lower extremity, 3+ pitting edema to the left lower extremity sign bilaterally, no palpable cords Course Reevaluation(s) Reevaluation #1: Patient reports her dizziness resolved with meclizine, we will discharge her wit h same. Ultrasound shows a right-sided popliteal fossa cyst but no evidence of DVT. Results were discussed with the patient and she is stable for discharge Time: 01:35 Medications Administered Discontinued Medications Generic Name Dose Route Start Last Admin Trade Name Thomas PRN Reason Stop Dose Admin Meclizine HCl 50 mg 02/10/23 23:53 02/11/23 00:59 Meclizine Hcl 25 Mg Tablet PO 02/10/23 23:54 50 mg ONCE ONE Administration Medical Decision Making Medical Decision Making [facility] Narrative: 8-year-old female presents for evaluation of multiple complaints. This includes bilateral leg swelling, left greater than right. Given that she has a history of DVT and is not currently anticoagulated, will get ultrasound to rule out DVT. Patient dizziness but describes as room spinning as history of vertigo. Will get orthostatics, but will treat as peripheral vertigo with negative in the mean time. She the negative neuro exam, no some central vertigo Differential Diagnosis Differential Diagnoses: The differential diagnosis associated with the presentation includes Vertigo Orthostasis Dehydration DVT Heart failure Leg swelling Dependent edema Lab Data [facility] Lab Attestation statement: I reviewed the patient's lab results. No leukocytosis with a normal white count of 8.4. No anemia with a hemoglobin of 13.0. Patient's glucose is elevated 211 which is a known history of diabetes. No evidence of DKA 02/10/23 22:00 02/10/23 22:00 Labs: Lab Results 02/10/23 02/10/23 02/10/23 Range/Units 22:00 22:00 22:00 WBC 8.4 (4.8-10.8) X10*3/uL RBC 4.44 (4.20-5.50) X10*6/uL Hgb 13.0 (12.0-16.0) g/dl Hct 39.0 (37.0-47.0) % MCV 87.8 (80.0-98.0) fL MCH 29.3 (27.0-33.0) pg MCHC 33.3 (31.0-35.0) g/dl RDW 12.4 (11.0-16.0) % Plt Count 205 (160-400) X10*3/uL MPV 9.7 (9.4-12.3) fL Immature Gran % (Auto) 0.4 (0.0-0.4) % Neut % (Auto) 62.1 (45-73) % Lymph % (Auto) 29.7 (20-40) % [place] % (Auto) 5.0 (2-11) % Eos % (Auto) 2.4 (0-4) % Baso % (Auto) 0.4 (0-2) % Lymph # (Auto) 2.5 (1.2-4.9) X10*3/uL [place] # (Auto) 0.4 (0.1-1.2) X10*3/uL Eos # (Auto) 0.2 (0.0-0.4) X10*3/uL Baso # (Auto) 0.0 (0.0-0.2) X10*3/uL Abs Immat Gran (auto) 0.03 (0.00-0.03) X10*3/uL Absolute Neuts (auto) 5.2 (2.0-8.3) x10*3/uL Absolute Nucleated RBC 0.000 (0.0-0.012) X10*3/uL Nucleated RBC % (auto) 0.0 (0.0-0.2) /100WBC Sodium 142 (135-145) mmol/L Potassium 3.7 (3.3-5.1) mmol/L Chloride 106 (96-108) mmol/L Carbon Dioxide 29 (22-29) mmol/L Anion Gap 11 L (12-20) BUN 14 (9-16) mg/dL Creatinine 0.84 (0.5-1.4) mg/dL Estim Creat Clear Calc 66.7 Estimated GFR > 60 Random Glucose 211 H (60-115) mg/dL Calcium 9.3 (8.4-10.2) mg/dL Total Bilirubin 0.4 (0.0-1.0) mg/dL AST 14 (5-31) U/L ALT 15 (0-31) U/L Alkaline Phosphatase 76 (39-117) U/L B-Natriuretic Peptide 11 (<100) pg/mL Total Protein 6.5 (6.5-8.0) g/dL Albumin 3.8 (3.5-5.0) g/dL Discharge Plan Discharge Clinical Impression: Dizziness, Leg swelling, Synovial cyst of popliteal space [Freeman], right knee Patient Disposition: Home, Self-Care Instructions: Bakers Cyst (ED), Leg Edema (ED) Additional Instructions: Your workup in the emergency department today was reassuring. Your dizziness was likely related to vertigo. You may use meclizine as needed for any further dizziness. Your ultrasound did not show any evidence of blood clots in your legs. You do have a Freeman cyst on the right leg behind her knee Avoid excessive salt and fluid consumption Elevate your legs above your heart while rest Prescriptions: New meclizine 25 mg tablet 25 mg PO TID PRN (Reason: dizziness) Qty: 20 0RF No Action cholecalciferol (vitamin D3) 50 mcg (2,000 unit) capsule 50 mcg PO DAILY Qty: 30 11RF (DME) FreeStyle Lite Strips Strip See Rx Instructions .ROUTE .COMPLEX Qty: 150 6RF Dose Instruction: USE TO TEST BLOOD SUGAR TWICE DAILY Rx Instructions: USE TO TEST BLOOD SUGAR TWICE DAILY thiamine HCl (vitamin B1) 100 mg tablet 100 mg PO DAILY Qty: 90 3RF hydrocodone-acetaminophen 5-325 mg tablet 1 tab PO Q6H PRN (Reason: pain) Qty: 10 0RF Rx Instructions: Partial Fill upon patient request. pantoprazole 40 mg tablet,delayed release (DR/EC) 40 mg PO BID Qty: 60 6RF hydroxyzine HCl 25 mg tablet 50 mg PO BEDTIME sertraline 100 mg tablet 1 tab PO BEDTIME pramipexole 0.25 mg tablet 1 tab DAILY tizanidine 4 mg tablet 1 tab PO BEDTIME lidocaine [Lidoderm] 5 % adhesive patch,medicated 1 patch topical DAILY MDD remove after 12 hours PRN (Reason: pain) Qty: 30 0RF Rx Instructions: leave on most painful area for up to 12 hrs albuterol sulfate 90 mcg/actuation HFA aerosol inhaler 2 puff inhalation Q4-6H PRN (Reason: shortness of breath or wheezing) Qty: 6.7 0RF fluticasone propionate [Flonase Allergy Relief] 50 mcg/actuation spray,suspension 2 spray intranasal DAILY Qty: 16 0RF Rx Instructions: administer into each nostril metformin 500 mg tablet extended release 24 hr 500 mg PO BID oxycodone 5 mg tablet 5 mg PO BID PRN (Reason: pain) Qty: 5 0RF Rx Instructions: Partial Fill upon patient request. oxycodone 5 mg tablet 5 mg PO Q6H PRN (Reason: pain (scale score 7-10)) Qty: 10 0RF Rx Instructions: Partial Fill upon patient request. hydrocodone-acetaminophen 5-325 mg tablet 1 tab PO Q4-6H PRN (Reason: pain) Qty: 5 0RF Rx Instructions: Partial Fill upon patient request. clindamycin phosphate 1 % gel 1 appl topical BID Qty: 30 0RF cyclobenzaprine 10 mg tablet 10 mg PO TID PRN (Reason: muscle spasm) Qty: 10 0RF lidocaine [Lidoderm] 5 % adhesive patch,medicated 1 patch topical DAILY Qty: 15 0RF Rx Instructions: leave on most painful area for up to 12 hrs cyclobenzaprine 10 mg tablet 10 mg PO Q8H Qty: 20 0RF oxycodone 5 mg tablet 5 mg PO Q6H PRN (Reason: pain) Qty: 20 0RF Rx Instructions: Partial Fill upon patient request. tramadol 50 mg tablet 50 mg PO Q6H PRN (Reason: pain) Qty: 20 0RF ondansetron 4 mg tablet,disintegrating 4 mg PO Q6-8H PRN (Reason: nausea and vomiting) Qty: 10 0RF acarbose 25 mg tablet 25 mg PO TID 30 Days Qty: 90 4RF hydrochlorothiazide 12.5 mg capsule 12.5 mg PO DAILY ferrous sulfate 325 mg (65 mg iron) tablet,delayed release (DR/EC) 325 mg PO DAILY (DME) blood-glucose meter [FreeStyle Lite Meter] Kit See Rx Instructions .Route Qty: 1 0RF Rx Instructions: As directed test blood sugar two times a day cyanocobalamin (vitamin B-12) 1,000 mcg tablet 1,000 mcg PO QAM sucralfate 100 mg/mL suspension 10 ml PO TID Rx Instructions: swish in mouth and swallow; use after food/drink
[2023-02-11] MEDS: Meclizine HCl 25 MG TABLET 50 MG PO (00:59)
[2023-02-11 01:38] VITALS: BP 105/58; PULSE 69; RESP 16; TEMP 36.6; O2SAT 97
== END 2023-02-11 02:34 | disposition home or self-care (01) ==
PROVIDERS: Physician Assistant; Emergency Provider Internal Medicine
DX: R42 Dizziness and giddiness (principal); R60.0 Localized edema; M71.21 Synovial cyst of popliteal space [Baker], right knee; R06.02 Shortness of breath; Z87.891 Personal history of nicotine dependence; Z79.899 Other long term (current) drug therapy
CPT/HCPCS: 36415; 80053; 83880; 85025; 93970; 99284

== ENCOUNTER 2023-02-11 09:46 | Outpatient (AMB) | payer MEDICAID, SELFPAY ==
--- NOTE | 2023-02-11 09:50 | A.OFFVIS_ITS ---
Intake Vital Signs 02/11/23 10:01 Height 5 ft 3 in Weight 155 lb BMI 27.5 BP 126/71 Blood Pressure Location Lt brachial Position Sitting Pulse 85 Intake Visit Reasons: S/P excision sebaceous cyst x2 Lt back Intake Note: Patient is seen in office for post op assessment post excision of sebaceous cyst of the back. Patient c/o: denies any concerns at the time of visit [employer] Weight [employer] Strength Tester Required: No Accompanied by: Self / Same As Patient Allergies Penicillins Allergy (Intermediate, Verified 02/11/23 10:01) HIVES sulfamethoxazole [From BACTRIM] Allergy (Intermediate, Verified 02/11/23 10:01) BLISTERS- DELGADO - NERVE ENDINGS IN HAND/ERYTHEMA MULTIFORM trimethoprim [From BACTRIM] Allergy (Intermediate, Verified 02/11/23 10:01) BLISTERS- DELGADO - NERVE ENDINGS IN HAND/ERYTHEMA MULTIFORM latex [Latex] Allergy (Mild, Verified 02/11/23 10:01) RASH theophylline Adverse Reaction (Intermediate, Verified 02/11/23 10:01) TACHYCARDIA TEGADERM Allergy (Intermediate, Uncoded 02/11/23 10:01) SKIN TEARS From COMPAZINE Adverse Reaction (Severe, Uncoded 02/11/23 10:01) SEIZURES Medication List - Last Reconciled 02/11/23 by Flaco Zambrano MD acarbose 25 mg PO TID 30 days albuterol sulfate 90 mcg/actuation 2 puffs inhalation Q4-6H PRN blood sugar diagnostic (FreeStyle Lite Strips) USE TO TEST BLOOD SUGAR TWICE DAILY blood-glucose meter (FreeStyle Lite Meter kit) As directed test blood sugar two times a day cholecalciferol (vitamin D3) 50 mcg PO DAILY clindamycin phosphate 1% 1 appl topical BID cyanocobalamin (vitamin B-12) 1,000 mcg PO QAM cyclobenzaprine 10 mg PO Q8H cyclobenzaprine 10 mg PO TID PRN ferrous sulfate 325 mg PO DAILY fluticasone propionate 50 mcg/actuation (Flonase Allergy Relief) 2 sprays intranasal DAILY hydrochlorothiazide 12.5 mg PO DAILY hydrocodone-acetaminophen 5-325 mg 1 tab PO Q4-6H PRN hydrocodone-acetaminophen 5-325 mg 1 tab PO Q6H PRN hydroxyzine HCl 50 mg PO BEDTIME lidocaine 5% (Lidoderm) 1 patch topical DAILY PRN MDD remove after 12 hours lidocaine 5% (Lidoderm) 1 patch topical DAILY meclizine 25 mg PO TID PRN metformin ER 500 mg PO BID ondansetron 4 mg PO Q6-8H PRN oxycodone 5 mg PO BID PRN oxycodone 5 mg PO Q6H PRN oxycodone 5 mg PO Q6H PRN pantoprazole 40 mg PO BID pramipexole 1 tab DAILY sertraline 1 tab PO BEDTIME sucralfate 10 mL PO TID thiamine HCl (vitamin B1) 100 mg PO DAILY tizanidine 1 tab PO BEDTIME tramadol 50 mg PO Q6H PRN HPI HPI Comments History of Present Illness Details Patient returns 1 week following excision of 2 sebaceous cysts of the back on 02/03/2023. She returns today for wound check and suture removal. She tolerated the procedure well and denies any ongoing symptoms at this time. She does have other cysts which are acting up including 1 her groin but wants to hold off on any further surgery at this time. [facility] Medical History (Updated 02/11/23 @ 01:37 by Jose Valencia) Anastomotic ulcer Anxiety Asthma Borderline diabetes Depression Diabetes type 2, controlled DVT (deep venous thrombosis) Dyslipidemia GERD (gastroesophageal reflux disease) High cholesterol History of restless legs syndrome Non-toxic multinodular goiter Surgical History (Updated 02/09/23 @ 11:11 by Shiela Robertson [facility]) H/O removal of cyst (02/03/23) History of excision of epidermal inclusion cyst (03/23/22) History of excision of mass (10/26/21) History of hysterectomy History of removal of cyst (07/28/22) History of surgery History of surgery on left wrist History of tooth extraction Hx of cholecystectomy Hx of elbow surgery Hx of esophagogastroduodenoscopy Hx of excision of epidermal inclusion cyst (12/25/21) Hx of hand surgery S/P gastric bypass S/P trigger finger release Family History Mother Diabetes mellitus CHF (congestive heart failure) Kidney failure Cervical cancer Brother No problems noted. Brother No problems noted. 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 Sutures removed and Steri-Strips applied. Assessment & Plan Assessment & Plan (1) Sebaceous cyst: Code(s): L72.3 - Sebaceous cyst Plan Patient returns 1 week following excision of 2 sebaceous cysts of the upper back. She tolerated the procedure well the wounds are healing nicely. She should follow up as needed. Coding Level of Care Code Global (23011) Diagnoses Sebaceous cyst L72.3
[2023-02-11 10:01] VITALS: BP 126/71; PULSE 85; BMI 27.5
== END 2023-02-11 10:06 | disposition home or self-care (01) ==
PROVIDERS: Visit Provider Surgery
DX: L72.3 Sebaceous cyst (principal)
CPT/HCPCS: 99024

== ENCOUNTER → 2023-02-11 09:46 | Outpatient (BNVA) | payer MEDICAID, SELFPAY | PROVIDERS: Visit Provider Surgery ==

== ENCOUNTER 2023-02-14 14:40 | Emergency (ER) | payer MEDICAID, SELFPAY ==
--- NOTE | ~2023-02-14 | XR_ITS ---
EXAMINATION: XR KNEE, LEFT CLINICAL INFORMATION: Left knee pain. COMPARISON: None available. TECHNIQUE: Four views of the left knee. FINDINGS: No fracture or joint effusion. Alignment is anatomic. Joint spaces are maintained. No abnormal soft tissue calcification. XR/XR knee LT 4V IMPRESSION: Unremarkable left knee.
[2023-02-14 15:48] VITALS: BP 117/61; PULSE 87; RESP 16; TEMP 36.7; O2SAT 99; BMI 27.5
--- NOTE | 2023-02-14 15:48 | ED_ITS ---
HPI - Extremity Injury (Lower) General Chief Complaint: Extremity Problem Stated Complaint: l knee pain Time Seen by Provider: 02/14/23 16:45 Source: patient Mode of arrival: ambulatory Limitations: no limitations History of Present Illness HPI Narrative: 62 yold female with pmh of asthma, DM, and GERD presents to the ED for left Knee pain since yesterday without any injury. Patient denies any leg swelling, calf pain, chest pain, shortness of breast, thigh pain, pleurisy, recent long travel, or recent surgery. Patient does admit to pushing heavy objects around at work and may have moved her left knee into an awkward position. Related Data Home Medications Medication Instructions Recorded Confirmed hydrochlorothiazide 12.5 mg capsule 12.5 mg PO DAILY 05/09/20 02/11/23 hydroxyzine HCl 25 mg tablet 50 mg PO BEDTIME 06/04/20 02/11/23 pramipexole 0.25 mg tablet 1 tab DAILY 10/20/21 02/11/23 sertraline 100 mg tablet 1 tab PO BEDTIME 10/20/21 02/11/23 tizanidine 4 mg tablet 1 tab PO BEDTIME 10/20/21 02/11/23 ferrous sulfate 325 mg (65 mg 325 mg PO DAILY 06/01/22 02/11/23 iron) tablet,delayed release cyanocobalamin (vitamin B-12) 1,000 mcg PO QAM 06/03/22 02/11/23 1,000 mcg tablet metformin 500 mg tablet,extended 500 mg PO BID 06/03/22 02/11/23 release 24 hr sucralfate 100 mg/mL oral 10 ml PO TID 12/21/22 02/11/23 suspension Previous Rx's Medication Instructions Recorded cholecalciferol (vitamin D3) 50 50 mcg PO DAILY #30 caps 12/15/20 mcg (2,000 unit) capsule acarbose 25 mg tablet 25 mg PO TID 30 days #90 tabs 12/31/20 albuterol sulfate 90 mcg/actuation 2 puff inhalation Q4-6H PRN 06/21/21 aerosol inhaler shortness of breath or wheezing #6.7 grams fluticasone propionate 50 2 spray intranasal DAILY #16 grams 06/21/21 mcg/actuation nasal spray,suspension (Flonase Allergy Relief) blood-glucose meter (FreeStyle #1 ea 08/21/21 Lite Meter kit) blood sugar diagnostic (FreeStyle #150 strips 03/30/22 Lite Strips) thiamine HCl (vitamin B1) 100 mg 100 mg PO DAILY #90 tabs 06/07/22 tablet lidocaine 5 % topical patch 1 patch topical DAILY PRN pain #30 08/13/22 (Lidoderm) ea hydrocodone 5 mg-acetaminophen 325 1 tab PO Q4-6H PRN pain #5 tabs 10/14/22 mg tablet hydrocodone 5 mg-acetaminophen 325 1 tab PO Q6H PRN pain #10 tabs 10/14/22 mg tablet oxycodone 5 mg tablet 5 mg PO BID PRN pain #5 tabs 10/31/22 clindamycin phosphate 1 % topical 1 appl topical BID #30 grams 11/07/22 gel cyclobenzaprine 10 mg tablet 10 mg PO TID PRN muscle spasm #10 11/10/22 tabs lidocaine 5 % topical patch 1 patch topical DAILY #15 ea 11/10/22 (Lidoderm) pantoprazole 40 mg tablet,delayed 40 mg PO BID #60 tabs 12/20/22 release cyclobenzaprine 10 mg tablet 10 mg PO Q8H #20 tabs 01/07/23 oxycodone 5 mg tablet 5 mg PO Q6H PRN pain #20 tabs 01/07/23 ondansetron 4 mg disintegrating 4 mg PO Q6-8H PRN nausea and 01/25/23 tablet vomiting #10 tabs tramadol 50 mg tablet 50 mg PO Q6H PRN pain #20 tabs 01/25/23 oxycodone 5 mg tablet 5 mg PO Q6H PRN pain (scale score 02/03/23 7-10) #10 tabs meclizine 25 mg tablet 25 mg PO TID PRN dizziness #20 tabs 02/11/23 prednisone 20 mg tablet 40 mg PO DAILY 5 days #10 tabs 02/14/23 tramadol 50 mg tablet 50 mg PO TID PRN pain 3 days #9 02/14/23 tabs Allergies Allergy/AdvReac Type Severity Reaction Status Date / Time Penicillins Allergy Intermediate HIVES Verified 02/11/23 10:01 sulfamethoxazole Allergy Intermediate BLISTERS- Verified 02/11/23 10:01 [From BACTRIM] DELGADO - NERVE ENDINGS IN HAND/ERYTHEMA MULTIFORM trimethoprim [From BACTRIM] Allergy Intermediate BLISTERS- Verified 02/11/23 10:01 DELGADO - NERVE ENDINGS IN HAND/ERYTHEMA MULTIFORM latex [Latex] Allergy Mild RASH Verified 02/11/23 10:01 theophylline AdvReac Intermediate TACHYCARDIA Verified 02/11/23 10:01 TEGADERM Allergy Intermediate SKIN TEARS Uncoded 02/11/23 10:01 From COMPAZINE AdvReac Severe SEIZURES Uncoded 02/11/23 10:01 Review of Systems Review of Systems: Left knee pain Yes all other systems are reviewed and are negative FORMERLY [facility], 1928–1983 Past Medical History Medical History (Updated 02/15/23 @ 00:09 by Donnell Perez) Anastomotic ulcer Anxiety Asthma Borderline diabetes Depression Diabetes type 2, controlled DVT (deep venous thrombosis) Dyslipidemia GERD (gastroesophageal reflux disease) High cholesterol History of restless legs syndrome Non-toxic multinodular goiter Surgical History H/O removal of cyst (02/03/23) History of excision of epidermal inclusion cyst (03/23/22) History of excision of mass (10/26/21) History of hysterectomy History of removal of cyst (07/28/22) History of surgery History of surgery on left wrist History of tooth extraction Hx of cholecystectomy Hx of elbow surgery Hx of esophagogastroduodenoscopy Hx of excision of epidermal inclusion cyst (12/25/21) Hx of hand surgery S/P gastric bypass S/P trigger finger release Family History Family History Mother Diabetes mellitus CHF (congestive heart failure) Kidney failure Cervical cancer Brother No problems noted. Brother No problems noted. 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 Physical Exam Vital Signs: Vital Signs: Last Vital Signs Temp 98.1 F 02/14/23 15:48 Pulse 87 02/14/23 15:48 Resp 16 02/14/23 15:48 BP 117/61 02/14/23 15:48 Pulse Ox 99 02/14/23 15:48 O2 Del Method Room Air 02/14/23 15:48 BMI result Body Mass Index 27.5 Const: General: cooperative, healthy appearing, comfortable, no acute distress, well developed, alert, awake and Physically active Orientation/consciousness: oriented to person, oriented to place, oriented to time and patient oriented x3 HEENT: Head: Yes normal to inspection, Yes No palpable skull fracture present, Yes normocephalic, Yes atraumatic and No abrasion Eyes: General: appearance normal, both eyes and all related structures Neck: Neck: Yes normal visual inspection, Yes full ROM, Yes no lymphadenopathy, Yes no meningeal signs, Yes trachea midline, Yes supple, No anterior neck swelling and No tender Chest: Chest palpation & inspection: normal inspection of the chest and normal palpation of entire chest wall Resp: Effort & Inspection: normal respiratory effort and able to speak in complete sentences Auscultation: clear to auscultation bilaterally Cardio: Jugular venous distension: no JVD Heart sounds: S1 normal heart sound present and S2 normal heart sound present GI: Inspection: Yes normal to inspection and No abdominal wall ecchymosis Palpation (GI): Soft to palpation, not firm, nontender, no guarding and not rigid : General: No CVA tenderness and Yes no CVA tenderness Back/Spine/Pelvis: Back: no CVA tenderness, No CVA tenderness and No back tenderness Skin: General skin exam: no rashes or lesions noted and elasticity normal Neuro: General: oriented to person, oriented to place, oriented to time, patient oriented x3, gait normal, tone normal, moves all extremities, Normal light touch and pain sensation, no meningeal signs, no focal motor deficits, CN's II-XI intact bilaterally and normal sensation to monofilament Extrem: Other: Bilateral lower extremities negative for swelling, pain edema, or calf tenderness. General: Yes normal to inspection and Yes full ROM Knee images: 1. Positive for tenderness on lateral aspect of left knee on pal pation. Negative for ecchymosis, crepitus, erythema, or deformity. Left lateral knee pain on movement. motor/ neuro/vascular exam intact. Psych: Appearance: grossly normal, well kempt and not disheveled Course Course Course Narrative: RME: 62-year-old female with a past medical history of diabetes, asthma, anxiety, depression, HLD, GERD, c/o atraumatic L knee pain since 3AM. Denies known injury/trauma or fall ambulating w/limping gait XRs ordered Full HPI, ROS and PE to be performed by primary ED provider. Medications Administered Discontinued Medications Generic Name Dose Route Start Last Admin Trade Name Freq PRN Reason Stop Dose Admin Acetaminophen 975 mg 02/14/23 17:34 02/14/23 18:04 Acetaminophen 325 Mg Tablet PO 02/14/23 17:35 975 mg ONCE ONE Administration Prednisone 60 mg 02/14/23 17:33 02/14/23 18:05 Prednisone 20 Mg Tablet PO 02/14/23 17:34 60 mg ONCE ONE Administration Medical Decision Making Medical Decision Making MDM Narrative: If fever female presents to ED for left lateral knee pain without any trauma. Patient admits to pushing trucks/cases full of heavy cases/objects. patient denies any chest pain, shortness of breath, pleurisy, thigh pain, calf pain, leg swelling, redness, bluish discoloration, fever, or chills. The x-ray came back normal but patient has tenderness and meniscus area of knee patient infor med she will need MRI to rule out any dramatic meniscus tear and or ligament injury. NOt suspecting DVT or rhabdoymylosis. patient had normal bilateral ultrasound in this ED 3 days ago. Differential Diagnosis Differential Diagnoses: The differential diagnosis associated with the presentation includes ( Knee sprain, knee fracture, septic knee joint, a meniscus tear, ligament tear, arthritis, DVT) Independent Interpretation I performed an independent interpretation of an: Plain X-Ray Radiology Impression Discussion of test interpretation with radiology: I have reviewed the radiologist's reading. External Record Review External record reviewed: Other (Prior ED visist) Tests considered The following testing was considered but not selected: Lower extremity ultrasound Prescription Management I considered prescription management with: Pain Medication and Other Discharge Plan Discharge Clinical Impression: Acute knee pain Patient Disposition: Home, Self-Care Instructions: Crutch Instructions (ED), Knee Pain (ED), Heat Pack Application (ED) Additional Instructions: please follow-up with your primary care provider for possible MRI for evaluation of the knee. Return to ED immediately for swelling of the knee, redness, hotness, coolness, bluish black discoloration, leg swelling, calf pain, coughing up blood, fever, chills, chest pain, shortness of breath, chest pain on inspiration, paralysis of lower extremities, tingling, or any other concerning symptoms. Prescriptions: New prednisone 20 mg tablet 40 mg PO DAILY 5 Days Qty: 10 0RF tramadol 50 mg tablet 50 mg PO TID PRN (Reason: pain) 3 Days Qty: 9 0RF No Action cholecalciferol (vitamin D3) 50 mcg (2,000 unit) capsule 50 mcg PO DAILY Qty: 30 11RF (DME) FreeStyle Lite Strips Strip See Rx Instructions .ROUTE .COMPLEX Qty: 150 6RF Dose Instruction: USE TO TEST BLOOD SUGAR TWICE DAILY Rx Instructions: USE TO TEST BLOOD SUGAR TWICE DAILY thiamine HCl (vitamin B1) 100 mg tablet 100 mg PO DAILY Qty: 90 3RF hydrocodone-acetaminophen 5-325 mg tablet 1 tab PO Q6H PRN (Reason: pain) Qty: 10 0RF Rx Instructions: Partial Fill upon patient request. pantoprazole 40 mg tablet,delayed release (DR/EC) 40 mg PO BID Qty: 60 6RF hydroxyzine HCl 25 mg tablet 50 mg PO BEDTIME sertraline 100 mg tablet 1 tab PO BEDTIME pramipexole 0.25 mg tablet 1 tab DAILY tizanidine 4 mg tablet 1 tab PO BEDTIME lidocaine [Lidoderm] 5 % adhesive patch,medicated 1 patch topical DAILY MDD remove after 12 hours PRN (Reason: pain) Qty: 30 0RF Rx Instructions: leave on most painful area for up to 12 hrs albuterol sulfate 90 mcg/actuation HFA aerosol inhaler 2 puff inhalation Q4-6H PRN (Reason: shortness of breath or wheezing) Qty: 6.7 0RF fluticasone propionate [Flonase Allergy Relief] 50 mcg/actuation spray,suspension 2 spray intranasal DAILY Qty: 16 0RF Rx Instructions: administer into each nostril metformin 500 mg tablet extended release 24 hr 500 mg PO BID oxycodone 5 mg tablet 5 mg PO BID PRN (Reason: pain) Qty: 5 0RF Rx Instructions: Partial Fill upon patient request. oxycodone 5 mg tablet 5 mg PO Q6H PRN (Reason: pain (scale score 7-10)) Qty: 10 0RF Rx Instructions: Partial Fill upon patient request. hydrocodone-acetaminophen 5-325 mg tablet 1 tab PO Q4-6H PRN (Reason: pain) Qty: 5 0RF Rx Instructions: Partial Fill upon patient request. clindamycin phosphate 1 % gel 1 appl topical BID Qty: 30 0RF cyclobenzaprine 10 mg tablet 10 mg PO TID PRN (Reason: muscle spasm) Qty: 10 0RF lidocaine [Lidoderm] 5 % adhesive patch,medicated 1 patch topical DAILY Qty: 15 0RF Rx Instructions: leave on most painful area for up to 12 hrs cyclobenzaprine 10 mg tablet 10 mg PO Q8H Qty: 20 0RF oxycodone 5 mg tablet 5 mg PO Q6H PRN (Reason: pain) Qty: 20 0RF Rx Instructions: Partial Fill upon patient request. tramadol 50 mg tablet 50 mg PO Q6H PRN (Reason: pain) Qty: 20 0RF ondansetron 4 mg tablet,disintegrating 4 mg PO Q6-8H PRN (Reason: nausea and vomiting) Qty: 10 0RF meclizine 25 mg tablet 25 mg PO TID PRN (Reason: dizziness) Qty: 20 0RF acarbose 25 mg tablet 25 mg PO TID 30 Days Qty: 90 4RF hydrochlorothiazide 12.5 mg capsule 12.5 mg PO DAILY ferrous sulfate 325 mg (65 mg iron) tablet,delayed release (DR/EC) 325 mg PO DAILY (DME) blood-glucose meter [FreeStyle Lite Meter] Kit See Rx Instructions .Route Qty: 1 0RF Rx Instructions: As directed test blood sugar two times a day cyanocobalamin (vitamin B-12) 1,000 mcg tablet 1,000 mcg PO QAM sucralfate 100 mg/mL suspension 10 ml PO TID Rx Instructions: swish in mouth and swallow; use after food/drink Stand Alone Forms: Work/School Release Interventions: ED Discharge Assessment Last Done: 02/14/23 18:31 Discharge Date/Time: 02/14/23 18:31 Print Language: Salvadorean
[2023-02-14] MEDS: Acetaminophen 325 MG TABLET 975 MG PO (18:04)
[2023-02-14] MEDS: predniSONE 20 MG TABLET 60 MG PO (18:05)
== END 2023-02-14 18:31 | disposition home or self-care (01) ==
PROVIDERS: Emergency Provider Student in an Organized Health Care Education/Training Program; PCP Student in an Organized Health Care Education/Training Program
DX: M25.562 Pain in left knee (principal); Z87.891 Personal history of nicotine dependence
CPT/HCPCS: 73564; 99283

== ENCOUNTER 2023-03-08 22:58 | Emergency (ER) | payer MEDICAID, SELFPAY ==
--- NOTE | ~2023-03-08 | XR_ITS ---
EXAMINATION: XR LUMBOSACRAL SPINE CLINICAL INFORMATION: Pain. COMPARISON: None available. TECHNIQUE: Three views of the lumbosacral spine. FINDINGS: The alignment is normal. There is mild diffuse thoracolumbar disc degenerative change with mild loss of disc space, endplate change and mild osteophyte formation. There is also mild L4-L5 and L5-S1 facet osteoarthritic hypertrophic change. The bone mineralization is normal. The vertebral body heights are maintained. The soft tissues are unremarkable. XR/XR lumbar spine 2-3V IMPRESSION: Mild diffuse lumbar disc and lower lumbar facet degenerative change. There is no fracture or malalignment.
[2023-03-08 23:28] VITALS: BP 122/77; RESP 20; TEMP 36.4; O2SAT 98; BMI 27.3
[2023-03-09 00:39] LABS: Hematocrit 36.7 % (37.0-47.0); Hemoglobin 12.3 g/dl (12.0-16.0); Mean Corpuscular HGB Conc 33.5 g/dl (31.0-35.0); Mean Corpuscular Hemoglobin 29.4 pg (27.0-33.0); Mean Corpuscular Volume 87.8 fL (80.0-98.0); Mean Platelet Volume 9.8 fL (9.4-12.3); Platelet Count 177 X10*3/uL (160-400); Red Blood Count 4.18 X10*6/uL (4.20-5.50); Red Cell Distribution Width 12.1 % (11.0-16.0); White Blood Count 7.1 X10*3/uL (4.8-10.8)
[2023-03-09 00:40] LABS: Appearance Urine Clear; Color Urine Yellow; Glucose Urine UA >=1000 mg/dL (Negative); Leukocyte Esterase Urine Negative (Negative); Nitrite Urine Negative (Negative); PH 5.5 (5.0-9.0); Specific Gravity - Urine >= 1.030 (1.005-1.025); UMIC TRIGGER UACC YES; Urine Blood Negative (Negative); Urine Ketones Negative (Negative); Urine Protein Negative (Neg-Trace)
[2023-03-09 00:42] LABS: Bacteria Urine 1+ (None Seen); Hyaline Casts Urine 0-2 /LPF (0-2); RBC Urine 0-2 /HPF (0-2); Squamous Epithelial Cell Urine 0-2 /HPF (0-2); WBC Urine 0-5 /HPF (0-5)
[2023-03-09 00:53] LABS: Alanine Aminotransferase 14 U/L (0-31); Albumin Level 3.6 g/dL (3.5-5.0); Alkaline Phosphatase 70 U/L (39-117); Anion Gap 11 (12-20); Aspartate Amino Transferase 16 U/L (5-31); Bilirubin Total 0.2 mg/dL (0.0-1.0); Blood Urea Nitrogen 19 mg/dL (9-16); Calcium 8.7 mg/dL (8.4-10.2); Carbon Dioxide 27 mmol/L (22-29); Chloride 107 mmol/L (96-108); Creatinine Clr Calc Pharmacy 69.2; Estimated Glomerular Filt Rate > 60; Glucose Random 231 mg/dL (60-115); Potassium 3.8 mmol/L (3.3-5.1); Sodium 141 mmol/L (135-145); Total Protein 6.1 g/dL (6.5-8.0)
--- NOTE | 2023-03-09 01:31 | PC.NURSE ---
Notified pt, she is next to be seen, charge nurse aware of pt concerns.
--- NOTE | 2023-03-09 02:00 | ED.BACK ---
HPI - Back Pain/Injury General Chief Complaint: Back Pain/Injury Stated Complaint: Back pain Time Seen by Provider: 03/09/23 01:51 Source: patient Mode of arrival: ambulatory Limitations: no limitations History of Present Illness HPI Narrative: 62-year-old female history of chronic back pain, history of back surgery many years ago, presented with low back pain since yesterday, patient also is known to have restless leg syndrome that is it making the pain even worse, pain radiates down to both legs more to the left side, patient was in severe pain yesterday and was feeling had to go for bowel movement could not go fast enough to the bathroom and could not hold it, and patient had 1 time diarrhea yesterday, patient otherwise decline having incontinence today was able to go to the bathroom with good feeling and urge to have bowel movement. No fever, no chills, no history of IV drug abuse. Patient declined any weakness in the lower extremities able to ambulate, patient was able to walk on toes and heels during the exam. Related Data Home Medications Medication Instructions Recorded Confirmed hydrochlorothiazide 12.5 mg capsule 12.5 mg PO DAILY 05/09/20 02/11/23 hydroxyzine HCl 25 mg tablet 50 mg PO BEDTIME 06/04/20 02/11/23 pramipexole 0.25 mg tablet 1 tab DAILY 10/20/21 02/11/23 sertraline 100 mg tablet 1 tab PO BEDTIME 10/20/21 02/11/23 tizanidine 4 mg tablet 1 tab PO BEDTIME 10/20/21 02/11/23 ferrous sulfate 325 mg (65 mg 325 mg PO DAILY 06/01/22 02/11/23 iron) tablet,delayed release cyanocobalamin (vitamin B-12) 1,000 mcg PO QAM 06/03/22 02/11/23 1,000 mcg tablet metformin 500 mg tablet,extended 500 mg PO BID 06/03/22 02/11/23 release 24 hr sucralfate 100 mg/mL oral 10 ml PO TID 12/21/22 02/11/23 suspension Previous Rx's Medication Instructions Recorded cholecalciferol (vitamin D3) 50 50 mcg PO DAILY #30 caps 12/15/20 mcg (2,000 unit) capsule acarbose 25 mg tablet 25 mg PO TID 30 days #90 tabs 12/31/20 albuterol sulfate 90 mcg/actuation 2 puff inhalation Q4-6H PRN 06/21/21 aerosol inhaler shortness of breath or wheezing #6.7 grams fluticasone propionate 50 2 spray intranasal DAILY #16 grams 06/21/21 mcg/actuation nasal spray,suspension (Flonase Allergy Relief) blood-glucose meter (FreeStyle #1 ea 08/21/21 Lite Meter kit) blood sugar diagnostic (FreeStyle #150 strips 03/30/22 Lite Strips) thiamine HCl (vitamin B1) 100 mg 100 mg PO DAILY #90 tabs 06/07/22 tablet lidocaine 5 % topical patch 1 patch topical DAILY PRN pain #30 08/13/22 (Lidoderm) ea hydrocodone 5 mg-acetaminophen 325 1 tab PO Q4-6H PRN pain #5 tabs 10/14/22 mg tablet hydrocodone 5 mg-acetaminophen 325 1 tab PO Q6H PRN pain #10 tabs 10/14/22 mg tablet oxycodone 5 mg tablet 5 mg PO BID PRN pain #5 tabs 10/31/22 clindamycin phosphate 1 % topical 1 appl topical BID #30 grams 11/07/22 gel cyclobenzaprine 10 mg tablet 10 mg PO TID PRN muscle spasm #10 11/10/22 tabs lidocaine 5 % topical patch 1 patch topical DAILY #15 ea 11/10/22 (Lidoderm) pantoprazole 40 mg tablet,delayed 40 mg PO BID #60 tabs 12/20/22 release cyclobenzaprine 10 mg tablet 10 mg PO Q8H #20 tabs 01/07/23 oxycodone 5 mg tablet 5 mg PO Q6H PRN pain #20 tabs 01/07/23 ondansetron 4 mg disintegrating 4 mg PO Q6-8H PRN nausea and 01/25/23 tablet vomiting #10 tabs tramadol 50 mg tablet 50 mg PO Q6H PRN pain #20 tabs 01/25/23 oxycodone 5 mg tablet 5 mg PO Q6H PRN pain (scale score 02/03/23 7-10) #10 tabs meclizine 25 mg tablet 25 mg PO TID PRN dizziness #20 tabs 02/11/23 prednisone 20 mg tablet 40 mg PO DAILY 5 days #10 tabs 02/14/23 tramadol 50 mg tablet 50 mg PO TID PRN pain 3 days #9 02/14/23 tabs diazepam 2 mg tablet (Valium) 2 mg PO BEDTIME PRN muscle spasm 03/09/23 #7 tabs oxycodone 5 mg tablet 5 mg PO Q8H PRN pain #14 tabs 03/09/23 Allergies Allergy/AdvReac Type Severity Reaction Status Date / Time Penicillins Allergy Intermediate HIVES Verified 02/11/23 10:01 sulfamethoxazole Allergy Intermediate BLISTERS- Verified 02/11/23 10:01 [From BACTRIM] DELGADO - NERVE ENDINGS IN HAND/ERYTHEMA MULTIFORM trimethoprim [From BACTRIM] Allergy Intermediate BLISTERS- Verified 02/11/23 10:01 DELGADO - NERVE ENDINGS IN HAND/ERYTHEMA MULTIFORM latex [Latex] Allergy Mild RASH Verified 02/11/23 10:01 theophylline AdvReac Intermediate TACHYCARDIA Verified 02/11/23 10:01 TEGADERM Allergy Intermediate SKIN TEARS Uncoded 02/11/23 10:01 From COMPAZINE AdvReac Severe SEIZURES Uncoded 02/11/23 10:01 Review of Systems Review of Systems: All other systems are reviewed and are negative Constitutional: Reports as per HPI and Reports no additional constitutional complaints Eyes: Reports as per HPI and Reports no additional eye complaints Reports system reviewed and no additional complaints, except as documented Cardiovascular: Reports as per HPI and Reports no additional cardiovascular complaints Respiratory: Reports as per HPI and Reports no additional respiratory complaints Gastrointestinal: Reports as per HPI and Reports no additional gastrointestinal complaints Genitourinary: Reports no additional female genitourinary complaints Musculoskeletal: Reports no additional musculoskeletal complaints Skin/Breast: Reports system reviewed and no additional complaints, except as docu Psychiatric: Reports no additional psychiatric complaints Endocrine: Reports no additional endocrine complaints Hematologic/Lymphatic: Reports no additional hematologic/lymphatic complaints Allergic/Immunologic: Reports no additional allergic/immunologic complaints Reports system reviewed and no additional complaints, except as documented and Reports Abnormal speech present PMFSH Past Medical History Medical History Anastomotic ulcer Anxiety Asthma Borderline diabetes Depression Diabetes type 2, controlled DVT (deep venous thrombosis) Dyslipidemia GERD (gastroesophageal reflux disease) High cholesterol History of restless legs syndrome Non-toxic multinodular goiter Surgical History H/O removal of cyst (02/03/23) History of excision of epidermal inclusion cyst (03/23/22) History of excision of mass (10/26/21) History of hysterectomy History of removal of cyst (07/28/22) History of surgery History of surgery on left wrist History of tooth extraction Hx of cholecystectomy Hx of elbow surgery Hx of esophagogastroduodenoscopy Hx of excision of epidermal inclusion cyst (12/25/21) Hx of hand surgery S/P gastric bypass S/P trigger finger release Family History Family History Mother Diabetes mellitus CHF (congestive heart failure) Kidney failure Cervical cancer Brother No problems noted. Brother No problems noted. 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 Blood pressure normal. Heart rate normal. Respiration rate normal. Temperature normal. Oxygen saturation normal. Appearance: Alert. Oriented X3. No acute distress. Head: Normal external exam. Normocephalic. Atraumatic. No Miller signs noted. No raccoon eyes noted Eyes: PERRLA. EOMI. Conjunctiva and sclera normal. Eyelids normal. ENT: TM's Normal. Pharynx normal. Uvula midline. Moist mucous membranes. No trismus noted. No drooling noted. No muffled voice noted. Neck: Normal inspection. Neck supple. FROM. No adenopathy. Thyroid Normal. No meningeal signs. No neck mass noted. CVS: Normal heart rate and rhythm. Heart sound normal. No murmurs noted. Pulses normal throughout. Respiratory: No respiratory distress. Painless inspiration. Breath sounds normal. No wheezes/rales/rhonchi noted. Chest nontender. No accessory muscle usage noted or decreased air movement noted. Abdomen: Soft and nontender. Bowel sounds normal in all 4 quadrants. No distention noted. No organomegaly noted. No visible injury noted. Back: No CVA tenderness. Full range of motion noted. Skin: Skin warm and dry. Normal skin color. Normal skin turgor. No rashes/lesions/lacerations noted. Extremities: No lower extremity edema. Extremities exhibit normal range of motion. Extremities nontender. Neuro: Oriented X 3. Cranial nerve exam: II-XII are grossly intact No motor deficit. No sensory deficit. Reflexes normal. Able to ambulate on both toes and heels, perianal sensation is intact with a good and intact rectal tone. Course Course Course Narrative: 62-year-old female with history of chronic back pain came in with acute on chronic back pain, no neurological deficit, patient has 1 incidental stool incontinence due to diarrhea and severe pain that patient could not hold it until going to the bathroom and had a watery diarrhea bowel movements, no more urine or stool incontinence today with intact perianal sensation, physical exam revealing no lower extremities weakness. Concern of cauda equina is low based on a physical exam and history. Medications Administered Discontinued Medications Generic Name Dose Route Start Last Admin Trade Name Thomas PRN Reason Stop Dose Admin Diazepam 2 mg 03/09/23 01:56 03/09/23 02:17 Diazepam 2 Mg Tablet PO 03/09/23 01:57 2 mg ONCE ONE Administration Hydromorphone HCl 2 mg 03/09/23 04:07 03/09/23 04:23 Hydromorphone Hcl 2 Mg/Ml Vial IM 03/09/23 04:08 2 mg ONCE ONE Administration Protocol Oxycodone HCl 5 mg 03/09/23 01:56 03/09/23 02:17 Oxycodone Hcl Immed Release 5 Mg Tablet PO 03/09/23 01:57 5 mg ONCE ONE Administration Medical Decision Making Differential Diagnosis Differential Diagnoses: The differential diagnosis associated with the presentation includes (Chronic back pain, cauda equinus syndrome, UTI, electrolyte disturbance, muscular spasm.) Admission/Observation Consideration of admission/observation: Escalation of care including admission/observation considered Lab Data MDM Lab Attestation statement: I reviewed the patient's lab results. 03/09/23 00:31 03/09/23 00:31 Labs: Lab Results 03/09/23 03/09/23 03/09/23 Range/Units 00:31 00:31 00:31 WBC 7.1 (4.8-10.8) X10*3/uL RBC 4.18 L (4.20-5.50) X10*6/uL Hgb 12.3 (12.0-16.0) g/dl Hct 36.7 L (37.0-47.0) % MCV 87.8 (80.0-98.0) fL MCH 29.4 (27.0-33.0) pg MCHC 33.5 (31.0-35.0) g/dl RDW 12.1 (11.0-16.0) % Plt Count 177 (160-400) X10*3/uL MPV 9.8 (9.4-12.3) fL Absolute Nucleated RBC 0.000 (0.0-0.012) X10*3/uL Nucleated RBC % (auto) 0.0 (0.0-0.2) /100WBC Sodium 141 (135-145) mmol/L Potassium 3.8 (3.3-5.1) mmol/L Chloride 107 (96-108) mmol/L Carbon Dioxide 27 (22-29) mmol/L Anion Gap 11 L (12-20) BUN 19 H (9-16) mg/dL Creatinine 0.81 (0.5-1.4) mg/dL Estim Creat Clear Calc 69.2 Estimated GFR > 60 Random Glucose 231 H (60-115) mg/dL Calcium 8.7 D (8.4-10.2) mg/dL Total Bilirubin 0.2 (0.0-1.0) mg/dL AST 16 (5-31) U/L ALT 14 (0-31) U/L Alkaline Phosphatase 70 (39-117) U/L Total Protein 6.1 L (6.5-8.0) g/dL Albumin 3.6 (3.5-5.0) g/dL Urine Color Yellow Urine Appearance Clear Urine pH 5.5 (5.0-9.0) Ur Specific Culver >= 1.030 H (1.005-1.025) Urine Protein Negative (Neg-Trace) mg/dL Urine Glucose (UA) >=1000 H (Negative) mg/dL Urine Ketones Negative (Negative) mg/dL Urine Blood Negative (Negative) Urine Nitrite Negative (Negative) Ur Leukocyte Esterase Negative (Negative) Urine RBC 0-2 (0-2) /HPF Urine WBC 0-5 (0-5) /HPF Ur Squamous Epith Cells 0-2 (0-2) /HPF Urine Bacteria 1+ (None Seen) Hyaline Casts 0-2 (0-2) /LPF Independent Interpretation I performed an independent interpretation of an: Plain X-Ray (Lumbar spine: Chronic degenerative changes.) Radiology Impression Discussion of test interpretation with radiology: I have reviewed the radiologist's reading. (Mild diffuse lumbar disc and lower lumbar facet degenerative change. There is no fracture or malalignment.) Chronic Conditions Patient?s care impacted by: Other (Chronic back pain.) Discharge Plan Discharge Clinical Impression: Lumbar radiculopathy Patient Disposition: Home, Self-Care Instructions: Lumbar Radiculopathy (ED) Prescriptions: New oxycodone 5 mg tablet 5 mg PO Q8H PRN (Reason: pain) Qty: 14 0RF Rx Instructions: Partial Fill upon patient request. diazepam [Valium] 2 mg tablet 2 mg PO BEDTIME PRN (Reason: muscle spasm) Qty: 7 0RF No Action cholecalciferol (vitamin D3) 50 mcg (2,000 unit) capsule 50 mcg PO DAILY Qty: 30 11RF (DME) FreeStyle Lite Strips Strip See Rx Instructions .ROUTE .COMPLEX Qty: 150 6RF Dose Instruction: USE TO TEST BLOOD SUGAR TWICE DAILY Rx Instructions: USE TO TEST BLOOD SUGAR TWICE DAILY thiamine HCl (vitamin B1) 100 mg tablet 100 mg PO DAILY Qty: 90 3RF hydrocodone-acetaminophen 5-325 mg tablet 1 tab PO Q6H PRN (Reason: pain) Qty: 10 0RF Rx Instructions: Partial Fill upon patient request. pantoprazole 40 mg tablet,delayed release (DR/EC) 40 mg PO BID Qty: 60 6RF hydroxyzine HCl 25 mg tablet 50 mg PO BEDTIME sertraline 100 mg tablet 1 tab PO BEDTIME pramipexole 0.25 mg tablet 1 tab DAILY tizanidine 4 mg tablet 1 tab PO BEDTIME lidocaine [Lidoderm] 5 % adhesive patch,medicated 1 patch topical DAILY MDD remove after 12 hours PRN (Reason: pain) Qty: 30 0RF Rx Instructions: leave on most painful area for up to 12 hrs albuterol sulfate 90 mcg/actuation HFA aerosol inhaler 2 puff inhalation Q4-6H PRN (Reason: shortness of breath or wheezing) Qty: 6.7 0RF fluticasone propionate [Flonase Allergy Relief] 50 mcg/actuation spray,suspension 2 spray intranasal DAILY Qty: 16 0RF Rx Instructions: administer into each nostril metformin 500 mg tablet extended release 24 hr 500 mg PO BID oxycodone 5 mg tablet 5 mg PO BID PRN (Reason: pain) Qty: 5 0RF Rx Instructions: Partial Fill upon patient request. oxycodone 5 mg tablet 5 mg PO Q6H PRN (Reason: pain (scale score 7-10)) Qty: 10 0RF Rx Instructions: Partial Fill upon patient request. prednisone 20 mg tablet 40 mg PO DAILY 5 Days Qty: 10 0RF tramadol 50 mg tablet 50 mg PO TID PRN (Reason: pain) 3 Days Qty: 9 0RF hydrocodone-acetaminophen 5-325 mg tablet 1 tab PO Q4-6H PRN (Reason: pain) Qty: 5 0RF Rx Instructions: Partial Fill upon patient request. clindamycin phosphate 1 % gel 1 appl topical BID Qty: 30 0RF cyclobenzaprine 10 mg tablet 10 mg PO TID PRN (Reason: muscle spasm) Qty: 10 0RF lidocaine [Lidoderm] 5 % adhesive patch,medicated 1 patch topical DAILY Qty: 15 0RF Rx Instructions: leave on most painful area for up to 12 hrs cyclobenzaprine 10 mg tablet 10 mg PO Q8H Qty: 20 0RF oxycodone 5 mg tablet 5 mg PO Q6H PRN (Reason: pain) Qty: 20 0RF Rx Instructions: Partial Fill upon patient request. tramadol 50 mg tablet 50 mg PO Q6H PRN (Reason: pain) Qty: 20 0RF ondansetron 4 mg tablet,disintegrating 4 mg PO Q6-8H PRN (Reason: nausea and vomiting) Qty: 10 0RF meclizine 25 mg tablet 25 mg PO TID PRN (Reason: dizziness) Qty: 20 0RF acarbose 25 mg tablet 25 mg PO TID 30 Days Qty: 90 4RF hydrochlorothiazide 12.5 mg capsule 12.5 mg PO DAILY ferrous sulfate 325 mg (65 mg iron) tablet,delayed release (DR/EC) 325 mg PO DAILY (DME) blood-glucose meter [FreeStyle Lite Meter] Kit See Rx Instructions .Route Qty: 1 0RF Rx Instructions: As directed test blood sugar two times a day cyanocobalamin (vitamin B-12) 1,000 mcg tablet 1,000 mcg PO QAM sucralfate 100 mg/mL suspension 10 ml PO TID Rx Instructions: swish in mouth and swallow; use after food/drink Referrals: Joyce Tapia MD [Primary Care Provider] -
[2023-03-09] MEDS: diazePAM 2 MG TABLET PO (02:17)
[2023-03-09] MEDS: oxyCODONE HCl Immed Release 5 MG TABLET PO (02:17)
[2023-03-09 04:19] VITALS: BP 104/73; PULSE 70; RESP 16; O2SAT 98
[2023-03-09] MEDS: HYDROmorphone HCl 2 MG/ML VIAL IM (04:23)
== END 2023-03-09 06:00 | disposition home or self-care (01) ==
PROVIDERS: Emergency Provider Emergency Medicine; PCP Student in an Organized Health Care Education/Training Program
DX: M54.16 Radiculopathy, lumbar region (principal); M54.50 Low back pain, unspecified; E11.9 Type 2 diabetes mellitus without complications; E78.5 Hyperlipidemia, unspecified; Z87.891 Personal history of nicotine dependence
CPT/HCPCS: 36415; 72100; 80053; 81001; 85027; 96372; 99283; 99284; J1170

== ENCOUNTER 2023-05-10 20:39 | Emergency (ER) | payer MEDICAID, SELFPAY ==
--- NOTE | ~2023-05-10 | XR_ITS ---
EXAMINATION: XR FINGER, LEFT CLINICAL INFORMATION: Painful index finger without injury COMPARISON: None available. TECHNIQUE: Single view hand with 2 additional of the left index finger. FINDINGS: The bones and soft tissues are normal. No fracture. Alignment is anatomic. Joint spaces are maintained. XR/XR finger LT min 2V IMPRESSION: Normal finger radiographs.
[2023-05-10 20:59] VITALS: BP 123/67; PULSE 91; RESP 18; TEMP 36.8; O2SAT 98; BMI 27.3
--- NOTE | 2023-05-10 23:13 | ED_ITS ---
HPI - General Adult General Chief complaint: General Medical Stated complaint: L hip pain, knee and fingers Time Seen by Provider: 05/10/23 22:43 Source: patient, RN notes reviewed and old records reviewed Mode of arrival: ambulatory Limitations: no limitations History of Present Illness HPI narrative: 62-year-old female with past medical history significant for dyslipidemia, type 2 diabetes, GERD, carpal tunnel syndrome presents for evaluation of left lower back pain that radiates down her leg as well as left 2nd finger pain Patient reports that she has the left lower back pain chronically due to ?a disc herniation. ? Last few days the pain has been worsened radiating into her hip and to the front of her left knee She states the left index finger has a bother weeks but denies She denies any falls, heavy lifting or twisting injuries as well Denies any numbness or tingling She denies any difficulty going to the bathroom No bladder or bowel incontinence No other complaints or concerns at this time Patient follows with Dr. Jessy Bautista for hand surgery and made an appointment for [facility] [employer] Home Medications Medication Instructions Recorded Confirmed hydrochlorothiazide 12.5 mg capsule 12.5 mg PO DAILY 05/09/20 02/11/23 hydroxyzine HCl 25 mg tablet 50 mg PO BEDTIME 06/04/20 02/11/23 pramipexole 0.25 mg tablet 1 tab DAILY 10/20/21 02/11/23 sertraline 100 mg tablet 1 tab PO BEDTIME 10/20/21 02/11/23 tizanidine 4 mg tablet 1 tab PO BEDTIME 10/20/21 02/11/23 ferrous sulfate 325 mg (65 mg 325 mg PO DAILY 06/01/22 02/11/23 iron) tablet,delayed release cyanocobalamin (vitamin B-12) 1,000 mcg PO QAM 06/03/22 02/11/23 1,000 mcg tablet metformin 500 mg tablet,extended 500 mg PO BID 06/03/22 02/11/23 release 24 hr sucralfate 100 mg/mL oral 10 ml PO TID 12/21/22 02/11/23 suspension Previous Rx's Medication Instructions Recorded cholecalciferol (vitamin D3) 50 50 mcg PO DAILY #30 caps 12/15/20 mcg (2,000 unit) capsule acarbose 25 mg tablet 25 mg PO TID 30 days #90 tabs 12/31/20 albuterol sulfate 90 mcg/actuation 2 puff inhalation Q4-6H PRN 06/21/21 aerosol inhaler shortness of breath or wheezing #6.7 grams fluticasone propionate 50 2 spray intranasal DAILY #16 grams 06/21/21 mcg/actuation nasal spray,suspension (Flonase Allergy Relief) blood-glucose meter (FreeStyle #1 ea 08/21/21 Lite Meter kit) blood sugar diagnostic (FreeStyle #150 strips 03/30/22 Lite Strips) thiamine HCl (vitamin B1) 100 mg 100 mg PO DAILY #90 tabs 06/07/22 tablet lidocaine 5 % topical patch 1 patch topical DAILY PRN pain #30 08/13/22 (Lidoderm) ea hydrocodone 5 mg-acetaminophen 325 1 tab PO Q4-6H PRN pain #5 tabs 10/14/22 mg tablet hydrocodone 5 mg-acetaminophen 325 1 tab PO Q6H PRN pain #10 tabs 10/14/22 mg tablet oxycodone 5 mg tablet 5 mg PO BID PRN pain #5 tabs 10/31/22 clindamycin phosphate 1 % topical 1 appl topical BID #30 grams 11/07/22 gel cyclobenzaprine 10 mg tablet 10 mg PO TID PRN muscle spasm #10 11/10/22 tabs lidocaine 5 % topical patch 1 patch topical DAILY #15 ea 11/10/22 (Lidoderm) pantoprazole 40 mg tablet,delayed 40 mg PO BID #60 tabs 12/20/22 release cyclobenzaprine 10 mg tablet 10 mg PO Q8H #20 tabs 01/07/23 oxycodone 5 mg tablet 5 mg PO Q6H PRN pain #20 tabs 01/07/23 ondansetron 4 mg disintegrating 4 mg PO Q6-8H PRN nausea and 01/25/23 tablet vomiting #10 tabs tramadol 50 mg tablet 50 mg PO Q6H PRN pain #20 tabs 01/25/23 oxycodone 5 mg tablet 5 mg PO Q6H PRN pain (scale score 02/03/23 7-10) #10 tabs meclizine 25 mg tablet 25 mg PO TID PRN dizziness #20 tabs 02/11/23 prednisone 20 mg tablet 40 mg (2 x 20 mg) PO DAILY 5 days 02/14/23 #10 tabs tramadol 50 mg tablet 50 mg PO TID PRN pain 3 days #9 02/14/23 tabs diazepam 2 mg tablet (Valium) 2 mg PO BEDTIME PRN muscle spasm 03/09/23 #7 tabs oxycodone 5 mg tablet 5 mg PO Q8H PRN pain #14 tabs 03/09/23 dexamethasone 4 mg tablet 4 mg PO BID #6 tabs 05/10/23 tramadol 50 mg tablet 50 mg PO TID PRN severe pain 05/10/23 (scale score 7-10) #12 tabs Allergies Allergy/AdvReac Type Severity Reaction Status Date / Time Penicillins Allergy Intermediate HIVES Verified 02/11/23 10:01 sulfamethoxazole Allergy Intermediate BLISTERS- Verified 02/11/23 10:01 [From BACTRIM] DELGADO - NERVE ENDINGS IN HAND/ERYTHEMA MULTIFORM trimethoprim [From BACTRIM] Allergy Intermediate BLISTERS- Verified 02/11/23 10:01 DELGADO - NERVE ENDINGS IN HAND/ERYTHEMA MULTIFORM latex [Latex] Allergy Mild RASH Verified 02/11/23 10:01 theophylline AdvReac Intermediate TACHYCARDIA Verified 02/11/23 10:01 TEGADERM Allergy Intermediate SKIN TEARS Uncoded 02/11/23 10:01 From COMPAZINE AdvReac Severe SEIZURES Uncoded 02/11/23 10:01 Review of Systems Constitutional: Constitutional: Denies chills and Denies fever(s) Cardiovascular: Cardiovascular: Denies chest pain and Denies dyspnea Respiratory: Respiratory: Denies cough and Denies dyspnea Gastrointestinal: Gastrointestinal: Denies abdominal pain Musculoskeletal: Musculoskeletal: Reports back pain, Reports arthralgias, Reports joint swelling and Reports limited range of motion Integumentary/Breasts: Skin/Breast: Denies rash PMFSH Past Medical History Medical History Anastomotic ulcer Anxiety Asthma Borderline diabetes Depression Diabetes type 2, controlled DVT (deep venous thrombosis) Dyslipidemia GERD (gastroesophageal reflux disease) High cholesterol History of restless legs syndrome Non-toxic multinodular goiter Surgical History H/O removal of cyst (02/03/23) History of excision of epidermal inclusion cyst (03/23/22) History of excision of mass (10/26/21) History of hysterectomy History of removal of cyst (07/28/22) History of surgery History of surgery on left wrist History of tooth extraction Hx of cholecystectomy Hx of elbow surgery Hx of esophagogastroduodenoscopy Hx of excision of epidermal inclusion cyst (12/25/21) Hx of hand surgery S/P gastric bypass S/P trigger finger release Family History Family History Mother Diabetes mellitus CHF (congestive heart failure) Kidney failure Cervical cancer Brother No problems noted. Brother No problems noted. 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 Physical Exam ED Vital Signs: Vital Signs - 24 hr 05/10/23 20:59 Temperature 98.2 F Pulse Rate 91 Respiratory Rate 18 Blood Pressure 123/67 Pulse Oximetry 98 Oxygen Delivery Method Room Air BMI result Body Mass Index 27.3 Const General: healthy appearing, comfortable, no acute distress, alert and awake Nutritional Appearance: well nourished Orientation/consciousness: patient oriented x3 HENMT Head: Yes normocephalic and Yes atraumatic Eyes Eyelids: Yes eyelids normal Conjunctivae: conjunctivae normal Sclerae: sclerae normal Corneas: corneas normal Pupils: Equal, round and reactive pupils present EOM: EOMs intact bilaterally Neck Neck: Yes full ROM Resp Effort & Inspection: normal respiratory effort, able to speak in complete sentences and not labored Back/Spine/Pelvis Other: Tenderness to the left lumbar paraspinous muscles. No left hip tenderness. No deformity. Patient is able to flex and extend at the left hip. Skin General skin exam: elasticity normal Neuro General: patient oriented x3 Cranial nerves: Yes Equal, round and reactive pupils present and Yes Bilaterally intact EOM present Cognition (Neuro): normal cognition Extrem Other: Moving all extremities well without any obvious deformities. Patient has mild edema to left 2nd MCP joint. No erythema, no palpable deformities. Patient has good range of motion with flexion extension of the finger at the MCP, PIP and D IP joints. The left wrist tenderness. Medical Decision Making Medical Decision Making [facility] Narrative: 62-year-old female presents for evaluation of 2 separate complaints. She wants the left 2nd finger pain as well as left lower back pain. She has a history of disc herniation and chronic back pain. Denies any specific injury. Has no neuro signs or symptoms, no red flags for cauda equina syndrome. I do not see any indication for emergent imaging at this time. She had a lumbar spine x-ray just over 2 months ago showing diffuse lumbar disc in lower lumbar facet degenerative changes.. Will treat with dexamethasone and tramadol. Her left 2nd finger pain is consistent with arthritis. An x-ray was ordered and is pending Differential Diagnosis Differential Diagnoses: The differential diagnosis associated with the presentation includes Osteoarthritis Lumbar radiculopathy Sciatica Lower back pain Muscle strain Contusion Finger fracture Independent Interpretation I performed an independent interpretation of an: Plain X-Ray (No obvious deformity to the left 2nd finger.) Radiology Impression Discussion of test interpretation with radiology: I have reviewed the radiologist's reading. (Normal finger radiograph) Prescription Management I considered prescription management with: Pain Medication Discharge Plan Discharge Clinical Impression: Finger pain, left, Acute left lumbar radiculopathy Patient Disposition: Home, Self-Care Instructions: Lumbar Radiculopathy (ED) Additional Instructions: Your finger x-ray did not show any concerning abnormalities. This does not appear to be any infection. Your back pain is likely related to a pinched nerve from your herniated disc. Take dexamethasone twice daily for the next 3 days. Use tramadol for severe or breakthrough pain. This may make you sleepy, did not drink alcohol or drive after taking it. Follow-up with your hand surgeon and her primary doctor Prescriptions: New dexamethasone 4 mg tablet 4 mg PO BID Qty: 6 0RF tramadol 50 mg tablet 50 mg PO TID PRN (Reason: severe pain (scale score 7-10)) Qty: 12 0RF No Action cholecalciferol (vitamin D3) 50 mcg (2,000 unit) capsule 50 mcg PO DAILY Qty: 30 11RF (DME) FreeStyle Lite Strips Strip See Rx Instructions .ROUTE .COMPLEX Qty: 150 6RF Dose Instruction: USE TO TEST BLOOD SUGAR TWICE DAILY Rx Instructions: USE TO TEST BLOOD SUGAR TWICE DAILY thiamine HCl (vitamin B1) 100 mg tablet 100 mg PO DAILY Qty: 90 3RF hydrocodone-acetaminophen 5-325 mg tablet 1 tab PO Q6H PRN (Reason: pain) Qty: 10 0RF Rx Instructions: Partial Fill upon patient request. pantoprazole 40 mg tablet,delayed release (DR/EC) 40 mg PO BID Qty: 60 6RF hydroxyzine HCl 25 mg tablet 50 mg PO BEDTIME sertraline 100 mg tablet 1 tab PO BEDTIME pramipexole 0.25 mg tablet 1 tab DAILY tizanidine 4 mg tablet 1 tab PO BEDTIME lidocaine [Lidoderm] 5 % adhesive patch,medicated 1 patch topical DAILY MDD remove after 12 hours PRN (Reason: pain) Qty: 30 0RF Rx Instructions: leave on most painful area for up to 12 hrs albuterol sulfate 90 mcg/actuation HFA aerosol inhaler 2 puff inhalation Q4-6H PRN (Reason: shortness of breath or wheezing) Qty: 6.7 0RF fluticasone propionate [Flonase Allergy Relief] 50 mcg/actuation spray,suspension 2 spray intranasal DAILY Qty: 16 0RF Rx Instructions: administer into each nostril metformin 500 mg tablet extended release 24 hr 500 mg PO BID oxycodone 5 mg tablet 5 mg PO BID PRN (Reason: pain) Qty: 5 0RF Rx Instructions: Partial Fill upon patient request. oxycodone 5 mg tablet 5 mg PO Q6H PRN (Reason: pain (scale score 7-10)) Qty: 10 0RF Rx Instructions: Partial Fill upon patient request. prednisone 20 mg tablet 40 mg PO DAILY 5 Days Qty: 10 0RF tramadol 50 mg tablet 50 mg PO TID PRN (Reason: pain) 3 Days Qty: 9 0RF oxycodone 5 mg tablet 5 mg PO Q8H PRN (Reason: pain) Qty: 14 0RF Rx Instructions: Partial Fill upon patient request. diazepam [Valium] 2 mg tablet 2 mg PO BEDTIME PRN (Reason: muscle spasm) Qty: 7 0RF hydrocodone-acetaminophen 5-325 mg tablet 1 tab PO Q4-6H PRN (Reason: pain) Qty: 5 0RF Rx Instructions: Partial Fill upon patient request. clindamycin phosphate 1 % gel 1 appl topical BID Qty: 30 0RF cyclobenzaprine 10 mg tablet 10 mg PO TID PRN (Reason: muscle spasm) Qty: 10 0RF lidocaine [Lidoderm] 5 % adhesive patch,medicated 1 patch topical DAILY Qty: 15 0RF Rx Instructions: leave on most painful area for up to 12 hrs cyclobenzaprine 10 mg tablet 10 mg PO Q8H Qty: 20 0RF oxycodone 5 mg tablet 5 mg PO Q6H PRN (Reason: pain) Qty: 20 0RF Rx Instructions: Partial Fill upon patient request. tramadol 50 mg tablet 50 mg PO Q6H PRN (Reason: pain) Qty: 20 0RF ondansetron 4 mg tablet,disintegrating 4 mg PO Q6-8H PRN (Reason: nausea and vomiting) Qty: 10 0RF meclizine 25 mg tablet 25 mg PO TID PRN (Reason: dizziness) Qty: 20 0RF acarbose 25 mg tablet 25 mg PO TID 30 Days Qty: 90 4RF hydrochlorothiazide 12.5 mg capsule 12.5 mg PO DAILY ferrous sulfate 325 mg (65 mg iron) tablet,delayed release (DR/EC) 325 mg PO DAILY (DME) blood-glucose meter [FreeStyle Lite Meter] Kit See Rx Instructions .Route Qty: 1 0RF Rx Instructions: As directed test blood sugar two times a day cyanocobalamin (vitamin B-12) 1,000 mcg tablet 1,000 mcg PO QAM sucralfate 100 mg/mL suspension 10 ml PO TID Rx Instructions: swish in mouth and swallow; use after food/drink
[2023-05-10 23:35] VITALS: BP 124/72; PULSE 68; RESP 20; TEMP 36.6; O2SAT 99
[2023-05-11] MEDS: traMADoL HCL 50 MG TABLET PO (01:00)
--- NOTE | 2023-05-11 01:27 | PC.NURSE ---
Assumed care of PT at 2337. Discharge summary and instructions given. PT verbalized understanding
== END 2023-05-11 01:30 | disposition home or self-care (01) ==
PROVIDERS: Emergency Provider Internal Medicine; PCP Student in an Organized Health Care Education/Training Program
DX: M79.645 Pain in left finger(s) (principal); M54.16 Radiculopathy, lumbar region; M54.50 Low back pain, unspecified; E11.9 Type 2 diabetes mellitus without complications; E78.5 Hyperlipidemia, unspecified; Z86.718 Personal history of other venous thrombosis and embolism; Z87.891 Personal history of nicotine dependence
CPT/HCPCS: 73140; 99283

== ENCOUNTER 2023-05-28 08:39 | Outpatient (REF) | payer MEDICAID, SELFPAY ==
--- NOTE | ~2023-05-28 | MM_ITS ---
EXAMINATION: MM SCREENING DIGITAL BREAST TOMOSYNTHESIS, BILATERAL CLINICAL INFORMATION: Screening. Asymptomatic. COMPARISON: Mammography: This study is compared with prior exams dating back to 2017. TECHNIQUE: Digital breast tomosynthesis is performed in both the craniocaudal and mediolateral oblique views along with computer-aided detection (CAD). Synthesized 2D images are generated from the tomosynthesis. FINDINGS: There are scattered areas of fibroglandular density (ACR BI-RADS breast composition Category b). There are no significant masses, abnormal calcifications, or other abnormalities. MM/MM tomosynthesis screening BI IMPRESSION: No mammographic evidence of malignancy. ASSESSMENT: BI-RADS BI-RADS 1 - Negative RECOMMENDATION: Routine annual mammography screening. 1 year F/U This examination should not preclude the clinical evaluation of a suspicious palpable abnormality. This patient's information was entered into a reminder system with a target due date for their next mammogram.
== END 2023-05-28 08:40 | disposition home or self-care (01) ==
LOC: HO.MAMMO 08:39
PROVIDERS: PCP Student in an Organized Health Care Education/Training Program; Visit Provider Student in an Organized Health Care Education/Training Program
DX: Z12.31 Encounter for screening mammogram for malignant neoplasm of breast (principal)
CPT/HCPCS: 77063; 77067

== ENCOUNTER → 2023-05-28 09:15 | Outpatient (BNV) | payer MEDICAID, SELFPAY | PROVIDERS: PCP Student in an Organized Health Care Education/Training Program; Visit Provider Radiology Diagnostic Radiology | DX: Z12.31 Encounter for screening mammogram for malignant neoplasm of breast (principal) | CPT/HCPCS: 77063; 77067 ==

== ENCOUNTER 2023-06-01 12:38 | Emergency (ER) | payer MEDICAID, SELFPAY ==
--- NOTE | ~2023-06-01 | US_ITS ---
EXAMINATION: US VENOUS ULTRASOUND WITH DOPPLER LOWER EXTREMITY, BILATERAL CLINICAL INFORMATION: Bilateral lower extremity pain COMPARISON: Bilateral lower extremity DVT exam 02/11/2023 TECHNIQUE: Ultrasound of the deep veins is performed from the hip to the calf with compression sonography and color and pulse Doppler assessment. Spectral analysis with color-flow imaging is performed. FINDINGS: RIGHT: There is normal venous compression and respiratory variation and augmented flow. The visualized common femoral vein, superficial femoral vein, profunda femoral vein, popliteal vein, and the trifurcation region shows no evidence of deep venous thrombosis. There is no significant popliteal fossa cyst. Superficial thrombophlebitis is seen in the right great saphenous vein in the proximal calf LEFT: There is normal venous compression and respiratory variation and augmented flow. The visualized common femoral vein, superficial femoral vein, profunda femoral vein, popliteal vein, and the trifurcation region shows no evidence of deep venous thrombosis. There is no significant popliteal fossa cyst. If the patient's symptoms persist, followup ultrasound in 5 days 7 days might be of value to exclude proximal propagation from a non-visualized calf vein. US/US venous duplex LE BI IMPRESSION: No DVT demonstrated in either lower extremity. Superficial thrombophlebitis with thrombus seen in the right great saphenous vein in the calf.
[2023-06-01 12:51] VITALS: BP 126/69; PULSE 93; RESP 18; TEMP 36.1; O2SAT 96; BMI 29.5
--- NOTE | 2023-06-01 12:51 | ED.GENADULT ---
HPI - General Adult General Chief complaint: General Medical Stated complaint: Hip pain, swelling in both legs Time Seen by Provider: 06/01/23 20:12 History of Present Illness HPI narrative: The patient is a 62-year-old woman comes to the emergency room complaining of leg pain. She says that she has pain in both legs but more so on the right side. She also feels that both legs are swollen. She says that she works for [employer] and is on her feet all the time doing a lot of lifting, bending, and walking. She says that she works from midnight to noon. She has been having a lot of pain in her legs over the last several days and came to the emergency room today. No chest pain or shortness of breath. No leg trauma. No falls. She is also complaining of nasal congestion and low back pain. No chest pain or shortness of breath. She apparently has a history of a DVT in 1984. She also had an upper extremity blood clot following surgery 2 years ago. The patient says that she is on a pain contract for narcotics for management of chronic back pain. Related Data Home Medications Medication Instructions Recorded Confirmed hydrochlorothiazide 12.5 mg capsule 12.5 mg PO DAILY 05/09/20 02/11/23 hydroxyzine HCl 25 mg tablet 50 mg PO BEDTIME 06/04/20 02/11/23 pramipexole 0.25 mg tablet 1 tab DAILY 10/20/21 02/11/23 sertraline 100 mg tablet 1 tab PO BEDTIME 10/20/21 02/11/23 tizanidine 4 mg tablet 1 tab PO BEDTIME 10/20/21 02/11/23 ferrous sulfate 325 mg (65 mg 325 mg PO DAILY 06/01/22 02/11/23 iron) tablet,delayed release cyanocobalamin (vitamin B-12) 1,000 mcg PO QAM 06/03/22 02/11/23 1,000 mcg tablet metformin 500 mg tablet,extended 500 mg PO BID 06/03/22 02/11/23 release 24 hr sucralfate 100 mg/mL oral 10 ml PO TID 12/21/22 02/11/23 suspension Previous Rx's Medication Instructions Recorded cholecalciferol (vitamin D3) 50 50 mcg PO DAILY #30 caps 12/15/20 mcg (2,000 unit) capsule acarbose 25 mg tablet 25 mg PO TID 30 days #90 tabs 12/31/20 albuterol sulfate 90 mcg/actuation 2 puff inhalation Q4-6H PRN 06/21/21 aerosol inhaler shortness of breath or wheezing #6.7 grams fluticasone propionate 50 2 spray intranasal DAILY #16 grams 06/21/21 mcg/actuation nasal spray,suspension (Flonase Allergy Relief) blood-glucose meter (FreeStyle #1 ea 08/21/21 Lite Meter kit) blood sugar diagnostic (FreeStyle #150 strips 03/30/22 Lite Strips) thiamine HCl (vitamin B1) 100 mg 100 mg PO DAILY #90 tabs 06/07/22 tablet lidocaine 5 % topical patch 1 patch topical DAILY PRN pain #30 08/13/22 (Lidoderm) ea hydrocodone 5 mg-acetaminophen 325 1 tab PO Q4-6H PRN pain #5 tabs 10/14/22 mg tablet hydrocodone 5 mg-acetaminophen 325 1 tab PO Q6H PRN pain #10 tabs 10/14/22 mg tablet oxycodone 5 mg tablet 5 mg PO BID PRN pain #5 tabs 10/31/22 clindamycin phosphate 1 % topical 1 appl topical BID #30 grams 11/07/22 gel cyclobenzaprine 10 mg tablet 10 mg PO TID PRN muscle spasm #10 11/10/22 tabs lidocaine 5 % topical patch 1 patch topical DAILY #15 ea 11/10/22 (Lidoderm) pantoprazole 40 mg tablet,delayed 40 mg PO BID #60 tabs 12/20/22 release cyclobenzaprine 10 mg tablet 10 mg PO Q8H #20 tabs 01/07/23 oxycodone 5 mg tablet 5 mg PO Q6H PRN pain #20 tabs 01/07/23 ondansetron 4 mg disintegrating 4 mg PO Q6-8H PRN nausea and 01/25/23 tablet vomiting #10 tabs tramadol 50 mg tablet 50 mg PO Q6H PRN pain #20 tabs 01/25/23 oxycodone 5 mg tablet 5 mg PO Q6H PRN pain (scale score 02/03/23 7-10) #10 tabs meclizine 25 mg tablet 25 mg PO TID PRN dizziness #20 tabs 08/11/23 prednisone 20 mg tablet 40 mg (2 x 20 mg) PO DAILY 5 days 02/14/23 #10 tabs tramadol 50 mg tablet 50 mg PO TID PRN pain 3 days #9 02/14/23 tabs diazepam 2 mg tablet (Valium) 2 mg PO BEDTIME PRN muscle spasm 03/09/23 #7 tabs oxycodone 5 mg tablet 5 mg PO Q8H PRN pain #14 tabs 03/09/23 dexamethasone 4 mg tablet 4 mg PO BID #6 tabs 05/10/23 tramadol 50 mg tablet 50 mg PO TID PRN severe pain 05/10/23 (scale score 7-10) #12 tabs Allergies Allergy/AdvReac Type Severity Reaction Status Date / Time Penicillins Allergy Intermediate HIVES Verified 06/01/23 12:50 sulfamethoxazole Allergy Intermediate BLISTERS- Verified 06/01/23 12:50 [From BACTRIM] DELGADO - NERVE ENDINGS IN HAND/ERYTHEMA MULTIFORM trimethoprim [From BACTRIM] Allergy Intermediate BLISTERS- Verified 06/01/23 12:50 DELGADO - NERVE ENDINGS IN HAND/ERYTHEMA MULTIFORM latex [Latex] Allergy Mild RASH Verified 06/01/23 12:50 theophylline AdvReac Intermediate TACHYCARDIA Verified 06/01/23 12:50 TEGADERM Allergy Intermediate SKIN TEARS Uncoded 02/11/23 10:01 From COMPAZINE AdvReac Severe SEIZURES Uncoded 02/11/23 10:01 Review of Systems Review of Systems: Yes all other systems are reviewed and are negative PMFSH Past Medical History Medical History Anastomotic ulcer Anxiety Asthma Borderline diabetes Depression Diabetes type 2, controlled DVT (deep venous thrombosis) Dyslipidemia GERD (gastroesophageal reflux disease) High cholesterol History of restless legs syndrome Non-toxic multinodular goiter Surgical History H/O removal of cyst (02/03/23) History of excision of epidermal inclusion cyst (03/23/22) History of excision of mass (10/26/21) History of hysterectomy History of removal of cyst (07/28/22) History of surgery History of surgery on left wrist History of tooth extraction Hx of cholecystectomy Hx of elbow surgery Hx of esophagogastroduodenoscopy Hx of excision of epidermal inclusion cyst (12/25/21) Hx of hand surgery S/P gastric bypass S/P trigger finger release Family History Family History Mother Diabetes mellitus CHF (congestive heart failure) Kidney failure Cervical cancer Brother No problems noted. Brother No problems noted. Social History Social History Household Members: Spouse Are you a primary critical care clinical nurse specialist to a significant other at home: No Do you presently have visiting nurse or other home services: No Alcohol intake: never Patient Tobacco Use Status: Former Tobacco user Quit Date: 6 months ago Tobacco use type: Cigarette Cigarette Packs Per Day: 0 Cigarettes Per Day: 1 Years Smoked: 30 Smoked in Last 30 Days: Yes Use of substances other than those prescribed or required for medical reasons: No Advance Directives: Yes Advance Directives Information Provided: No Advance Directives on File: No Current occupational status: employed 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 She said that she was very uncomfortable. She did not appear obviously toxic. HENMT Other: Face is symmetrical. Mucous membranes moist. Eyes Other: Pupils are round equal, conjunctivae are clear Neck Other: Moving her neck easily Resp Other: Lungs are clear bilaterally Cardio Other: The patient is a regular rate and rhythm with no murmur. GI Other: Abdomen is soft nontender Skin Other: No erythema of significance to the legs. No cellulitis. Neuro Other: The patient was awake and alert. Speech was clear. Face was symmetrical. She moves her extremities symmetrically. Gait was steady. Extrem Other: No pitting edema to either leg. She has some tenderness along the medial aspect of the right lower leg. She has good range of motion of the joints leg and was able to bear weight well. She walked slowly but without a limp. Course Course Course Narrative: This is an RME: Additional HPI, ROS, PE not included below will be deferred to primary provider. 62-year-old female with past medical history significant for dyslipidemia, type 2 diabetes, GERD, carpal tunnel syndrome presenting to the ER with a complaint of BL lower extremity swelling (R>L), nasal congestion and low back pain. No chest pain or SOB. Hx of DVT in 1984. Also reporting upper extremity blood clot in arm post surgery 2 years ago. Plan: Labs, US Medications Administered Discontinued Medications Generic Name Dose Route Start Last Admin Trade Name Thomas PRN Reason Stop Dose Admin Ketorolac Tromethamine 30 mg 06/01/23 21:44 06/01/23 22:24 Ketorolac Tromethamine 30 Mg/Ml Vial IM 06/01/23 21:45 30 mg ONCE ONE Administration Oxycodone HCl 10 mg 06/01/23 20:40 06/01/23 20:54 Oxycodone Hcl Immed Release 5 Mg Tablet PO 06/01/23 20:41 10 mg ONCE ONE Administration Medical Decision Making Medical Decision Making [facility] Narrative: The patient is here complaining of bilateral lower leg pain, pain in the right leg being greater than pain in left leg. She has a history of previous DVTs. She is not currently on anticoagulation. She does not appear toxic or febrile. She does not seem to have any neurological deficits. An ultrasound ordered at triage of both lower extremities shows a small superficial thrombophlebitis in the right greater saphenous vein below the knee. I discussed these finding with the radiologist who did not feel that the clot was very long or near any significant vessel juncture. We agreed the clot did not seem to be criteria which would potentially indicate anticoagulation. Based on this finding recommendation is for conservative management with follow-up and repeat ultrasound in the next couple of weeks and follow up with her PCP. She was given a work note to keep her off work for the next 4 days. She should rest the leg and elevate the leg. She says she currently takes an aspirin daily. Lab Data 06/01/23 15:12 06/01/23 15:12 Labs: Lab Results 06/01/23 Range/Units 15:12 WBC 6.7 (4.8-10.8) X10*3/uL RBC 4.04 L (4.20-5.50) X10*6/uL Hgb 12.0 (12.0-16.0) g/dl Hct 35.3 L (37.0-47.0) % MCV 87.4 (80.0-98.0) fL MCH 29.7 (27.0-33.0) pg MCHC 34.0 (31.0-35.0) g/dl RDW 12.8 (11.0-16.0) % Plt Count 169 (160-400) X10*3/uL MPV 9.7 (9.4-12.3) fL Immature Gran % (Auto) 0.1 (0.0-0.4) % Neut % (Auto) 62.1 (45-73) % Lymph % (Auto) 29.1 (20-40) % [place] % (Auto) 5.7 (2-11) % Eos % (Auto) 2.7 (0-4) % Baso % (Auto) 0.3 (0-2) % Lymph # (Auto) 2.0 (1.2-4.9) X10*3/uL [place] # (Auto) 0.4 (0.1-1.2) X10*3/uL Eos # (Auto) 0.2 (0.0-0.4) X10*3/uL Baso # (Auto) 0.0 (0.0-0.2) X10*3/uL Abs Immat Gran (auto) 0.01 (0.00-0.03) X10*3/uL Absolute Neuts (auto) 4.2 (2.0-8.3) x10*3/uL Absolute Nucleated RBC 0.000 (0.0-0.012) X10*3/uL Nucleated RBC % (auto) 0.0 (0.0-0.2) /100WBC Sodium 139 (135-145) mmol/L Potassium 3.5 (3.3-5.1) mmol/L Chloride 106 (96-108) mmol/L Carbon Dioxide 26 (22-29) mmol/L Anion Gap 11 L (12-20) BUN 15 (9-16) mg/dL Creatinine 0.77 (0.5-1.4) mg/dL Estim Creat Clear Calc 75.6 Estimated GFR > 60 Random Glucose 143 H (60-115) mg/dL Calcium 8.9 (8.4-10.2) mg/dL Total Bilirubin 0.4 (0.0-1.0) mg/dL Direct Bilirubin 0.1 (0.0-0.5) mg/dL AST 26 (5-31) U/L ALT 18 (0-31) U/L Alkaline Phosphatase 72 (39-117) U/L C-Reactive Protein 0.16 (< or = 0.50) mg/dL B-Natriuretic Peptide 29 (<100) pg/mL Total Protein 6.3 L (6.5-8.0) g/dL Albumin 3.7 (3.5-5.0) g/dL Influenza Type A (PCR) NEGATIVE (Negative) Influenza Type B (PCR) NEGATIVE (Negative) RSV RNA Qual (PCR) NEGATIVE (Negative) SARS-CoV-2 RNA (RT-PCR) NEGATIVE (Negative) Discharge Plan Discharge Clinical Impression: Superficial thrombophlebitis Patient Disposition: Home, Self-Care Instructions: Superficial Thrombophlebitis (ED) Additional Instructions: The ultrasound of your leg shows a small clot in the vein in your right calf below the knee. This is in your greater saphenous vein. At the moment the clot is too small to be an indication for treatment with anticoagulation medication. The main treatment for a small clot like this is to try to rest and take it easy. Please take the next couple of days off work. Rest the leg and elevate it. Use warm compresses. May use ibuprofen for discomfort in addition to your other medications. Please contact your regular doctors office tomorrow to set up a repeat ultrasound in 1-2 weeks to make sure that this clot is not getting bigger. Please also make an appointment with your doctor so that your doctor can check on how you are doing. Return to the emergency room if significantly worse. Prescriptions: No Action cholecalciferol (vitamin D3) 50 mcg (2,000 unit) capsule 50 mcg PO DAILY Qty: 30 11RF (DME) FreeStyle Lite Strips Strip See Rx Instructions .ROUTE .COMPLEX Qty: 150 6RF Dose Instruction: USE TO TEST BLOOD SUGAR TWICE DAILY Rx Instructions: USE TO TEST BLOOD SUGAR TWICE DAILY thiamine HCl (vitamin B1) 100 mg tablet 100 mg PO DAILY Qty: 90 3RF hydrocodone-acetaminophen 5-325 mg tablet 1 tab PO Q6H PRN (Reason: pain) Qty: 10 0RF Rx Instructions: Partial Fill upon patient request. pantoprazole 40 mg tablet,delayed release (DR/EC) 40 mg PO BID Qty: 60 6RF hydroxyzine HCl 25 mg tablet 50 mg PO BEDTIME sertraline 100 mg tablet 1 tab PO BEDTIME pramipexole 0.25 mg tablet 1 tab DAILY tizanidine 4 mg tablet 1 tab PO BEDTIME lidocaine [Lidoderm] 5 % adhesive patch,medicated 1 patch topical DAILY MDD remove after 12 hours PRN (Reason: pain) Qty: 30 0RF Rx Instructions: leave on most painful area for up to 12 hrs albuterol sulfate 90 mcg/actuation HFA aerosol inhaler 2 puff inhalation Q4-6H PRN (Reason: shortness of breath or wheezing) Qty: 6.7 0RF fluticasone propionate [Flonase Allergy Relief] 50 mcg/actuation spray,suspension 2 spray intranasal DAILY Qty: 16 0RF Rx Instructions: administer into each nostril metformin 500 mg tablet extended release 24 hr 500 mg PO BID oxycodone 5 mg tablet 5 mg PO BID PRN (Reason: pain) Qty: 5 0RF Rx Instructions: Partial Fill upon patient request. oxycodone 5 mg tablet 5 mg PO Q6H PRN (Reason: pain (scale score 7-10)) Qty: 10 0RF Rx Instructions: Partial Fill upon patient request. prednisone 20 mg tablet 40 mg PO DAILY 5 Days Qty: 10 0RF tramadol 50 mg tablet 50 mg PO TID PRN (Reason: pain) 3 Days Qty: 9 0RF oxycodone 5 mg tablet 5 mg PO Q8H PRN (Reason: pain) Qty: 14 0RF Rx Instructions: Partial Fill upon patient request. diazepam [Valium] 2 mg tablet 2 mg PO BEDTIME PRN (Reason: muscle spasm) Qty: 7 0RF dexamethasone 4 mg tablet 4 mg PO BID Qty: 6 0RF tramadol 50 mg tablet 50 mg PO TID PRN (Reason: severe pain (scale score 7-10)) Qty: 12 0RF hydrocodone-acetaminophen 5-325 mg tablet 1 tab PO Q4-6H PRN (Reason: pain) Qty: 5 0RF Rx Instructions: Partial Fill upon patient request. clindamycin phosphate 1 % gel 1 appl topical BID Qty: 30 0RF cyclobenzaprine 10 mg tablet 10 mg PO TID PRN (Reason: muscle spasm) Qty: 10 0RF lidocaine [Lidoderm] 5 % adhesive patch,medicated 1 patch topical DAILY Qty: 15 0RF Rx Instructions: leave on most painful area for up to 12 hrs cyclobenzaprine 10 mg tablet 10 mg PO Q8H Qty: 20 0RF oxycodone 5 mg tablet 5 mg PO Q6H PRN (Reason: pain) Qty: 20 0RF Rx Instructions: Partial Fill upon patient request. tramadol 50 mg tablet 50 mg PO Q6H PRN (Reason: pain) Qty: 20 0RF ondansetron 4 mg tablet,disintegrating 4 mg PO Q6-8H PRN (Reason: nausea and vomiting) Qty: 10 0RF meclizine 25 mg tablet 25 mg PO TID PRN (Reason: dizziness) Qty: 20 0RF acarbose 25 mg tablet 25 mg PO TID 30 Days Qty: 90 4RF hydrochlorothiazide 12.5 mg capsule 12.5 mg PO DAILY ferrous sulfate 325 mg (65 mg iron) tablet,delayed release (DR/EC) 325 mg PO DAILY (DME) blood-glucose meter [FreeStyle Lite Meter] Kit See Rx Instructions .Route Qty: 1 0RF Rx Instructions: As directed test blood sugar two times a day cyanocobalamin (vitamin B-12) 1,000 mcg tablet 1,000 mcg PO QAM sucralfate 100 mg/mL suspension 10 ml PO TID Rx Instructions: swish in mouth and swallow; use after food/drink Referrals: Joyce Tapia MD [Primary Care Provider] - (superficial thrombophlebitis follow-up) Stand Alone Forms: Work/School Release Interventions: ED Discharge Assessment Last Done: 06/01/23 22:34 Discharge Date/Time: 06/01/23 22:35
[2023-06-01 15:19] LABS: MANUAL DIFF FLAG NO
[2023-06-01 15:20] LABS: Basophils Percent Auto 0.3 % (0-2); Eosinophils Absolute Auto 0.2 X10*3/uL (0.0-0.4); Eosinophils Percent Auto 2.7 % (0-4); Hematocrit 35.3 % (37.0-47.0); Imm Gran Abs Auto 0.01 X10*3/uL (0.00-0.03); Imm Gran Pct Auto 0.1 % (0.0-0.4); Lymphocytes Percent Auto 29.1 % (20-40); Mean Corpuscular Hemoglobin 29.7 pg (27.0-33.0); Mean Corpuscular Volume 87.4 fL (80.0-98.0); Mean Platelet Volume 9.7 fL (9.4-12.3); Monocytes Absolute Auto 0.4 X10*3/uL (0.1-1.2); Monocytes Percent Auto 5.7 % (2-11); Neutrophils Absolute Auto 4.2 x10*3/uL (2.0-8.3); Neutrophils Percent Auto 62.1 % (45-73); Platelet Count 169 X10*3/uL (160-400); Red Blood Count 4.04 X10*6/uL (4.20-5.50); Red Cell Distribution Width 12.8 % (11.0-16.0); White Blood Count 6.7 X10*3/uL (4.8-10.8)
[2023-06-01 15:39] LABS: Alanine Aminotransferase 18 U/L (0-31); Albumin Level 3.7 g/dL (3.5-5.0); Alkaline Phosphatase 72 U/L (39-117); Anion Gap 11 (12-20); Aspartate Amino Transferase 26 U/L (5-31); Bilirubin Direct 0.1 mg/dL (0.0-0.5); Bilirubin Total 0.4 mg/dL (0.0-1.0); Blood Urea Nitrogen 15 mg/dL (9-16); Calcium 8.9 mg/dL (8.4-10.2); Carbon Dioxide 26 mmol/L (22-29); Chloride 106 mmol/L (96-108); Creatinine Clr Calc Pharmacy 75.6; Estimated Glomerular Filt Rate > 60; Glucose Random 143 mg/dL (60-115); Potassium 3.5 mmol/L (3.3-5.1); Sodium 139 mmol/L (135-145); Total Protein 6.3 g/dL (6.5-8.0)
[2023-06-01 15:44] LABS: B Type Natriuretic Peptide 29 pg/mL (<100)
[2023-06-01 16:00] LABS: Influenza A PCR NEGATIVE (Negative); Influenza B PCR NEGATIVE (Negative); Resp Syncy Virus RNA Qual PCR NEGATIVE (Negative); SARS COV2 PCR INHOUSE NEGATIVE (Negative)
[2023-06-01 19:21] VITALS: BP 113/64; PULSE 62; RESP 18; TEMP 36.6; O2SAT 100
[2023-06-01] MEDS: oxyCODONE HCl Immed Release 5 MG TABLET 10 MG PO (20:54)
--- NOTE | 2023-06-01 21:12 | PC.NURSE ---
cathryn richmond assumed care of pt. pt reports bilateral lower extremity pain that began a few days ago. pt reports she is on her feet for long hours and reports the inability to sleep due to the pain. pt reports history of bilateral lower leg blood clots. pt right leg red but not warm to touch and pt left leg has minimal redness noted and not warm to touch.
[2023-06-01 22:16] LABS: C Reactive Protein 0.16 mg/dL (< or = 0.50)
[2023-06-01] MEDS: Ketorolac Tromethamine 30 MG/ML VIAL IM (22:24)
--- NOTE | 2023-06-01 22:31 | PC.NURSE ---
Medicated per Mar, Reviewed discharge instructions with pt. pt verbalized understanding, Education on DVT, No sign of distress, Notified RN Darby.
== END 2023-06-01 22:35 | disposition home or self-care (01) ==
PROVIDERS: Physician Assistant Medical; Emergency Provider Emergency Medicine; PCP Student in an Organized Health Care Education/Training Program
DX: I80.9 Phlebitis and thrombophlebitis of unspecified site (principal); R60.0 Localized edema; M79.605 Pain in left leg; M79.604 Pain in right leg; M54.50 Low back pain, unspecified; R06.02 Shortness of breath; Z20.822 Contact with and (suspected) exposure to COVID-19; Z20.828 Contact with and (suspected) exposure to other viral communicable diseases; Z86.718 Personal history of other venous thrombosis and embolism; Z79.899 Other long term (current) drug therapy; Z87.891 Personal history of nicotine dependence; Z79.01 Long term (current) use of anticoagulants
CPT/HCPCS: 0241U; 80048; 80076; 83880; 85025; 86140; 93970; 96372; 99284; J1885

== ENCOUNTER 2023-06-07 09:58 | Outpatient (REF) | payer MEDICAID, SELFPAY | END 2023-06-07 09:59 | disposition home or self-care (01) | LOC: HO.HOSX 09:58 | PROVIDERS: Visit Provider Orthopaedic Surgery | DX: Z13.89 Encounter for screening for other disorder (principal) ==

== ENCOUNTER 2023-06-08 15:40 | Outpatient (REF) | payer MEDICAID, SELFPAY ==
--- NOTE | ~2023-06-08 | US_ITS ---
EXAMINATION: US VENOUS ULTRASOUND WITH DOPPLER LOWER EXTREMITY, RIGHT CLINICAL INFORMATION: Pain. COMPARISON: Bilateral lower extremity ultrasound 06/01/2023. TECHNIQUE: Ultrasound of the deep veins is performed from the hip to the calf with compression sonography and color and pulse Doppler assessment. Spectral analysis with color-flow imaging is performed. FINDINGS: There is normal venous compression and respiratory variation and augmented flow. The visualized right common femoral vein, superficial femoral vein, profunda femoral vein, popliteal vein, and the trifurcation region shows no evidence of deep venous thrombosis. There is no significant popliteal fossa cyst. Additionally images in the area of redness along the distal medial right calf were obtained without evidence of significant abnormality such as superficial thrombophlebitis, collections or masses. If the patient's symptoms persist, followup ultrasound in 5 days 7 days might be of value to exclude proximal propagation from a non-visualized calf vein. US/US venous duplex LE RT IMPRESSION: No DVT demonstrated in the right lower extremity.
== END 2023-06-08 15:41 | disposition home or self-care (01) ==
LOC: HO.US 15:40
PROVIDERS: Visit Provider Pediatrics
DX: I80.01 Phlebitis and thrombophlebitis of superficial vessels of right lower extremity (principal)
CPT/HCPCS: 93971

== ENCOUNTER 2023-06-11 09:25 | Emergency (ER) | payer MEDICAID, SELFPAY ==
--- NOTE | ~2023-06-11 | XR_ITS ---
EXAMINATION: XR CHEST CLINICAL INFORMATION: Shortness of breath COMPARISON: Previous chest x-ray August 2022 TECHNIQUE: 2 views of the chest were obtained. FINDINGS: No significant abnormality is noted involving the heart, lungs, mediastinum, bony thorax or soft tissues. XR/XR chest 2V IMPRESSION: Unremarkable examination.
[2023-06-11 09:30] VITALS: BP 132/71; PULSE 79; RESP 17; TEMP 35.7; O2SAT 96; BMI 28.4
--- NOTE | 2023-06-11 09:50 | ED.ASTHMA ---
HPI - Asthma General Chief Complaint: Asthma Stated Complaint: asthma Time Seen by Provider: 06/11/23 09:50 Source: patient Mode of arrival: ambulatory Limitations: no limitations History of Present Illness HPI Narrative: Patient is a 62 year old assigned female at with a history of asthma and DM presenting to the emergency department today with persistent wheezing after a cold. Patient states that a week ago she got a cold and she continues to wheeze. Patient states that she is prescribed prednisone and taking it but feels like she needs something for her lung pain. Patient denies any dizziness, lightheadedness, abdominal pain, nausea, vomiting, fever, chills, blurry vision, double vision, loss of vision, chest pain, difficulty breathing, shortness of breath, back pain, night sweats, pain with urination, increased urinary frequency, increased urinary urgency, blood in her urine or stool, syncope or a near syncopal episode, recent trauma or falls, bowel incontinence, bladder incontinence, bowel retention, bladder retention, or any other complaints at this time. MD complaint: wheezing Onset (ago): minute(s) (1) Severity: mild Associated symptoms: dry cough Treatments Prior to Arrival: inhaled bronchodilator Related Data Current Asthma Therapy: inhaled bronchodilator and recent oral steroid Home Medications Medication Instructions Recorded Confirmed hydrochlorothiazide 12.5 mg capsule 12.5 mg PO DAILY 05/09/20 02/11/23 hydroxyzine HCl 25 mg tablet 50 mg PO BEDTIME 06/04/20 02/11/23 pramipexole 0.25 mg tablet 1 tab DAILY 10/20/21 02/11/23 sertraline 100 mg tablet 1 tab PO BEDTIME 10/20/21 02/11/23 tizanidine 4 mg tablet 1 tab PO BEDTIME 10/20/21 02/11/23 ferrous sulfate 325 mg (65 mg 325 mg PO DAILY 06/01/22 02/11/23 iron) tablet,delayed release cyanocobalamin (vitamin B-12) 1,000 mcg PO QAM 06/03/22 02/11/23 1,000 mcg tablet metformin 500 mg tablet,extended 500 mg PO BID 06/03/22 02/11/23 release 24 hr sucralfate 100 mg/mL oral 10 ml PO TID 12/21/22 02/11/23 suspension Previous Rx's Medication Instructions Recorded cholecalciferol (vitamin D3) 50 50 mcg PO DAILY #30 caps 12/15/20 mcg (2,000 unit) capsule acarbose 25 mg tablet 25 mg PO TID 30 days #90 tabs 12/31/20 albuterol sulfate 90 mcg/actuation 2 puff inhalation Q4-6H PRN 06/21/21 aerosol inhaler shortness of breath or wheezing #6.7 grams fluticasone propionate 50 2 spray intranasal DAILY #16 grams 06/21/21 mcg/actuation nasal spray,suspension (Flonase Allergy Relief) blood-glucose meter (FreeStyle #1 ea 08/21/21 Lite Meter kit) blood sugar diagnostic (FreeStyle #150 strips 03/30/22 Lite Strips) thiamine HCl (vitamin B1) 100 mg 100 mg PO DAILY #90 tabs 06/07/22 tablet lidocaine 5 % topical patch 1 patch topical DAILY PRN pain #30 08/13/22 (Lidoderm) ea hydrocodone 5 mg-acetaminophen 325 1 tab PO Q4-6H PRN pain #5 tabs 10/14/22 mg tablet hydrocodone 5 mg-acetaminophen 325 1 tab PO Q6H PRN pain #10 tabs 10/14/22 mg tablet oxycodone 5 mg tablet 5 mg PO BID PRN pain #5 tabs 10/31/22 clindamycin phosphate 1 % topical 1 appl topical BID #30 grams 11/07/22 gel cyclobenzaprine 10 mg tablet 10 mg PO TID PRN muscle spasm #10 11/10/22 tabs lidocaine 5 % topical patch 1 patch topical DAILY #15 ea 11/10/22 (Lidoderm) cyclobenzaprine 10 mg tablet 10 mg PO Q8H #20 tabs 01/07/23 oxycodone 5 mg tablet 5 mg PO Q6H PRN pain #20 tabs 01/07/23 ondansetron 4 mg disintegrating 4 mg PO Q6-8H PRN nausea and 01/25/23 tablet vomiting #10 tabs tramadol 50 mg tablet 50 mg PO Q6H PRN pain #20 tabs 01/25/23 oxycodone 5 mg tablet 5 mg PO Q6H PRN pain (scale score 02/03/23 7-10) #10 tabs meclizine 25 mg tablet 25 mg PO TID PRN dizziness #20 tabs 02/11/23 prednisone 20 mg tablet 40 mg (2 x 20 mg) PO DAILY 5 days 02/14/23 #10 tabs tramadol 50 mg tablet 50 mg PO TID PRN pain 3 days #9 02/14/23 tabs diazepam 2 mg tablet (Valium) 2 mg PO BEDTIME PRN muscle spasm 03/09/23 #7 tabs oxycodone 5 mg tablet 5 mg PO Q8H PRN pain #14 tabs 03/09/23 dexamethasone 4 mg tablet 4 mg PO BID #6 tabs 05/10/23 tramadol 50 mg tablet 50 mg PO TID PRN severe pain 05/10/23 (scale score 7-10) #12 tabs pantoprazole 40 mg tablet,delayed 40 mg PO Q12H #60 tabs 06/07/23 release albuterol sulfate 1.25 mg/3 mL 1.25 mg (3 mL) inhalation QID PRN 06/11/23 solution for nebulization shortness of breath or wheezing #90 mL Allergies Allergy/AdvReac Type Severity Reaction Status Date / Time Penicillins Allergy Intermediate HIVES Verified 06/01/23 12:50 sulfamethoxazole Allergy Intermediate BLISTERS- Verified 06/01/23 12:50 [From BACTRIM] DELGADO - NERVE ENDINGS IN HAND/ERYTHEMA MULTIFORM trimethoprim [From BACTRIM] Allergy Intermediate BLISTERS- Verified 06/01/23 12:50 DELGADO - NERVE ENDINGS IN HAND/ERYTHEMA MULTIFORM latex [Latex] Allergy Mild RASH Verified 06/01/23 12:50 theophylline AdvReac Intermediate TACHYCARDIA Verified 06/01/23 12:50 TEGADERM Allergy Intermediate SKIN TEARS Uncoded 02/11/23 10:01 From COMPAZINE AdvReac Severe SEIZURES Uncoded 02/11/23 10:01 Review of Systems Constitutional: Constitutional: Reports no additional constitutional complaints, Denies chills, Denies fever(s) and Denies night sweats Eyes: Eyes: Reports no additional eye complaints, Denies blurry vision, Denies change in vision, Denies diplopia, Denies eye discharge, Denies loss of vision and Denies eye pain ENT: Denies dizziness Cardiovascular: Cardiovascular: Reports no additional cardiovascular complaints, Denies chest pain, Denies lightheadedness, Denies Loss of Consciousness and Denies dyspnea Respiratory: Respiratory: Reports no additional respiratory complaints, Reports cough, Denies dyspnea and Reports wheezing Gastrointestinal: Gastrointestinal: Reports no additional gastrointestinal complaints, Denies abdominal pain, Denies melena, Denies hematochezia, Denies change in bowel habits and Denies change in stool character Genitourinary: Genitourinary: Denies hematuria, Denies urinary frequency, Denies dysuria, Denies urinary incontinence, Denies urinary hesitancy and Denies urinary urgency Musculoskeletal: Musculoskeletal: Reports no additional musculoskeletal complaints, Denies numbness and Denies tingling Neurologic: Denies dizziness, Denies loss of vision, Denies numbness and Denies tingling Psychiatric: Psychiatric: Reports no additional psychiatric complaints Endocrine: Endocrine: Reports no additional endocrine complaints Hematologic/Lymphatic: Hematologic/Lymphatic: Reports no additional hematologic/lymphatic complaints Allergic/Immunologic: Allergic/Immunologic: Reports no additional allergic/immunologic complaints and Reports wheezing PMFSH Past Medical History Attestation statement: The following information was validated with the patient. Source: old records reviewed and nursing notes reviewed Medical History Infection of skin due to methicillin resistant Staphylococcus aureus (MRSA) Numbness of right hand Abdominal pain COVID-19 Sebaceous cyst Abscess Cubital tunnel syndrome on left Contusion of right ankle Numbness and tingling in left hand Left hand pain Stiffness of left hand joint Emesis Overweight (BMI 25.0-29.9) Borderline diabetes Dyslipidemia Non-toxic multinodular goiter Diabetes type 2, controlled History of restless legs syndrome Anxiety Depression High cholesterol Asthma DVT (deep venous thrombosis) GERD (gastroesophageal reflux disease) Anastomotic ulcer Surgical History H/O removal of cyst (02/03/23) History of removal of cyst (07/28/22) Hx of cholecystectomy History of surgery History of surgery on left wrist Hx of elbow surgery History of excision of epidermal inclusion cyst (03/23/22) Hx of excision of epidermal inclusion cyst (12/25/21) History of excision of mass (10/26/21) S/P trigger finger release History of tooth extraction Hx of hand surgery Hx of esophagogastroduodenoscopy S/P gastric bypass History of hysterectomy Family History Family History Mother Diabetes mellitus CHF (congestive heart failure) Kidney failure Cervical cancer Brother No problems noted. Brother No problems noted. 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 Physical Exam Vital Signs: Vital Signs: Last Vital Signs Temp 98.3 F 06/11/23 10:45 Pulse 85 06/11/23 10:45 Resp 16 06/11/23 10:45 BP 125/70 06/11/23 10:45 Pulse Ox 93 06/11/23 10:45 O2 Del Method Room Air 06/11/23 10:45 BMI result Body Mass Index 28.4 Const: General: cooperative, no acute distress, alert and awake Nutritional Appearance: well nourished Orientation/consciousness: patient oriented x3 Limitations: no limitations HEENT: Head: Yes normal to inspection and Yes atraumatic Ears: hearing grossly normal bilaterally and external ears normal General nose exam: Normal external nose present, no nasal discharge noted and no epistaxis Face and sinus: Yes normal facial exam, No abrasion and No laceration Mouth: Normal oral and palatal mucosa present, no drooling and no muffled voice Eyes: General: appearance normal, both eyes and all related structures Periorbital: periorbital findings normal Eyelids: Yes eyelids normal Conjunctivae: conjunctivae normal Pupils: Equal, round and reactive pupils present EOM: EOMs intact bilaterally Neck: Neck: Yes normal visual inspection, Yes full ROM and Yes no lymphadenopathy Chest: Chest palpation & inspection: normal inspection of the chest Resp: Effort & Inspection: normal respiratory effort and able to speak in complete sentences Auscultation: wheezes scattered wheezes and throughout GI: Inspection: Yes normal to inspection Neuro: General: patient oriented x3 and moves all extremities Cranial nerves: Yes Equal, round and reactive pupils present Cognition (Neuro): normal cognition Motor exam (neuro): 5/5 motor strength present throughout Sensory Exam: Normal double simultaneous stimulation for sensation Coordination: [id number] test normal Extrem: General: Yes normal to inspection, Yes full ROM and Yes capillary refill normal Psych: Appearance: grossly normal Mental Status: mental status grossly normal Affect: normal affect Attitude: cooperative Thought process: Normal thought process present Thought content: Normal thought content present Insight: Good insight present (Psych) Medications Administered Discontinued Medications Generic Name Dose Route Start Last Admin Trade Name Richardq PRN Reason Stop Dose Admin Acetaminophen 650 mg 06/11/23 11:46 06/11/23 11:57 Acetaminophen 325 Mg Tablet PO 06/11/23 11:47 650 mg ONCE ONE Administration Albuterol Sulfate 2.5 mg/ 0 mg 06/11/23 09:51 06/11/23 09:55 Albuterol/Ipratropium 3 ml INHALE 06/11/23 09:52 5 dose ONCE ONE Administration Magnesium Sulfate/Dextrose 1 gm in 100 mls @ 100 mls/hr 06/11/23 10:14 06/11/23 12:02 Magnesium Sulfate/D5w IV 06/11/23 11:13 Infused ONCE ONE Infusion Methylprednisolone Sodium Succinate 60 mg 06/11/23 10:14 06/11/23 10:40 Methylprednisolone Sod Succ 125 Mg/2 Ml Vial IVPUSH 06/11/23 10:15 60 mg ONCE ONE Administration Potassium Chloride 20 meq 06/11/23 11:01 06/11/23 11:57 Potassium Chloride Packet 20 Meq Packet PO 06/11/23 11:02 20 meq ONCE ONE Administration Medical Decision Making Medical Decision Making MDM Narrative: Patient is a 62 year old assigned female at with a history of asthma and DM presenting to the emergency department today with persistent cough and wheezing. Patient's physical exam showed wheezing throughout but was otherwise unremarkable. Patient was resting when all re-evaluations were done. Patient's blood work was unremarkable. Patient's chest x-ray showed no acute process. I explained my physical exam findings as well as all test results to the patient. I answered all questions asked by the patient. Patient received a breathing treatment which she stated helped her symptoms significantly. I stressed the importance of the patient taking her medication as prescribed. I stressed the importance of the patient following up with her primary care provider. I stressed the importance of the patient returning to the emergency department immediately if her symptoms were to worsen or if she were to develop any dizziness, shortness of breath, difficulty breathing, chest pain, blurry vision, loss of vision, nausea, vomiting, abdominal pain, fever, chills, back pain, or any other complaints. Patient verbalized agreement and understanding with this treatment plan and discharge. Differential Diagnosis Differential Diagnoses: The differential diagnosis associated with the presentation includes Cough COVID-19 RSV Influenza Asthma Admission/Observation Consideration of admission/observation: Escalation of care including admission/observation considered Patient would have been admitted to the hospital had her work up had any findings where hospital admission was appropriate and her clinical presentation warranted hospital admission. Lab Data MDM Lab Attestation statement: I reviewed the patient's lab results. My interpretation of these studies and their corresponding values is that they are grossly normal. 06/11/23 10:33 06/11/23 10:33 Labs: Lab Results 06/11/23 06/11/23 Range/Units 09:48 10:33 WBC 6.8 (4.8-10.8) X10*3/uL RBC 4.32 (4.20-5.50) X10*6/uL Hgb 12.5 (12.0-16.0) g/dl Hct 37.9 (37.0-47.0) % MCV 87.7 (80.0-98.0) fL MCH 28.9 (27.0-33.0) pg MCHC 33.0 (31.0-35.0) g/dl RDW 12.5 (11.0-16.0) % Plt Count 191 (160-400) X10*3/uL MPV 9.4 (9.4-12.3) fL Immature Gran % (Auto) 0.1 (0.0-0.4) % Neut % (Auto) 69.7 (45-73) % Lymph % (Auto) 24.0 (20-40) % [place] % (Auto) 4.9 (2-11) % Eos % (Auto) 1.2 (0-4) % Baso % (Auto) 0.1 (0-2) % Lymph # (Auto) 1.6 (1.2-4.9) X10*3/uL [place] # (Auto) 0.3 (0.1-1.2) X10*3/uL Eos # (Auto) 0.1 (0.0-0.4) X10*3/uL Baso # (Auto) 0.0 (0.0-0.2) X10*3/uL Abs Immat Gran (auto) 0.01 (0.00-0.03) X10*3/uL Absolute Neuts (auto) 4.7 (2.0-8.3) x10*3/uL Absolute Nucleated RBC 0.000 (0.0-0.012) X10*3/uL Nucleated RBC % (auto) 0.0 (0.0-0.2) /100WBC Sodium 142 (135-145) mmol/L Potassium 3.1 L (3.3-5.1) mmol/L Chloride 105 (96-108) mmol/L Carbon Dioxide 26 (22-29) mmol/L Anion Gap 14 (12-20) BUN 16 (9-16) mg/dL Creatinine 0.78 (0.5-1.4) mg/dL Estim Creat Clear Calc 73.3 Estimated GFR > 60 Random Glucose 183 H (60-115) mg/dL Calcium 9.0 (8.4-10.2) mg/dL Magnesium 2.1 (1.6-2.6) mg/dL Total Bilirubin 0.4 (0.0-1.0) mg/dL AST 18 (5-31) U/L ALT 16 (0-31) U/L Alkaline Phosphatase 85 (39-117) U/L Total Protein 6.8 (6.5-8.0) g/dL Albumin 4.0 (3.5-5.0) g/dL Influenza Type A (PCR) NEGATIVE (Negative) Influenza Type B (PCR) NEGATIVE (Negative) RSV RNA Qual (PCR) NEGATIVE (Negative) SARS-CoV-2 RNA (RT-PCR) NEGATIVE (Negative) Independent Interpretation I performed an independent interpretation of an: Plain X-Ray Interpretation: My interpretation is in agreement with the radiologist's impression of this imaging study. EXAMINATION: XR CHEST CLINICAL INFORMATION: Shortness of breath COMPARISON: Previous chest x-ray August 2022 TECHNIQUE: 2 views of the chest were obtained. FINDINGS: No significant abnormality is noted involving the heart, lungs, mediastinum, bony thorax or soft tissues. XR/XR chest 2V IMPRESSION: Unremarkable examination. Dictated By: Tamiko Nick MD Signed By: Electronically signed by Tamiko Nick MD 06/11/23 9412 Radiology Impression Discussion of test interpretation with radiology: I have reviewed the radiologist's reading. Chronic Conditions Patient?s care impacted by: Diabetes and Other (asthma) Critical Care Time Critical Care Time Critical Care Time: Yes Total Critical Care Time: 35 Attestation: I spent 35 minutes of Critical Care Time with this patient. This does not include time spent on separately reported billable procedures. Discharge Plan Discharge Clinical Impression: Asthma exacerbation, Acute hypokalemia Patient Disposition: Home, Self-Care Instructions: Asthma (DC), Potassium Content of Foods List (ED), Hypokalemia (ED) Additional Instructions: Continue taking your prednisone as prescribed. Follow up with your primary care provider. Return to the emergency department immediately if your symptoms worsen or if you develop any dizziness, shortness of breath, difficulty breathing, chest pain, blurry vision, loss of vision, nausea, vomiting, abdominal pain, fever, chills, back pain, or any other complaints. Prescriptions: New albuterol sulfate 1.25 mg/3 mL solution for nebulization 1.25 mg inhalation QID PRN (Reason: shortness of breath or wheezing) Qty: 90 0RF No Action cholecalciferol (vitamin D3) 50 mcg (2,000 unit) capsule 50 mcg PO DAILY Qty: 30 11RF (DME) FreeStyle Lite Strips Strip See Rx Instructions .ROUTE .COMPLEX Qty: 150 6RF Dose Instruction: USE TO TEST BLOOD SUGAR TWICE DAILY Rx Instructions: USE TO TEST BLOOD SUGAR TWICE DAILY thiamine HCl (vitamin B1) 100 mg tablet 100 mg PO DAILY Qty: 90 3RF hydrocodone-acetaminophen 5-325 mg tablet 1 tab PO Q6H PRN (Reason: pain) Qty: 10 0RF Rx Instructions: Partial Fill upon patient request. pantoprazole 40 mg tablet,delayed release (DR/EC) 40 mg PO Q12H Qty: 60 6RF hydroxyzine HCl 25 mg tablet 50 mg PO BEDTIME sertraline 100 mg tablet 1 tab PO BEDTIME pramipexole 0.25 mg tablet 1 tab DAILY tizanidine 4 mg tablet 1 tab PO BEDTIME lidocaine [Lidoderm] 5 % adhesive patch,medicated 1 patch topical DAILY MDD remove after 12 hours PRN (Reason: pain) Qty: 30 0RF Rx Instructions: leave on most painful area for up to 12 hrs albuterol sulfate 90 mcg/actuation HFA aerosol inhaler 2 puff inhalation Q4-6H PRN (Reason: shortness of breath or wheezing) Qty: 6.7 0RF fluticasone propionate [Flonase Allergy Relief] 50 mcg/actuation spray,suspension 2 spray intranasal DAILY Qty: 16 0RF Rx Instructions: administer into each nostril metformin 500 mg tablet extended release 24 hr 500 mg PO BID oxycodone 5 mg tablet 5 mg PO BID PRN (Reason: pain) Qty: 5 0RF Rx Instructions: Partial Fill upon patient request. oxycodone 5 mg tablet 5 mg PO Q6H PRN (Reason: pain (scale score 7-10)) Qty: 10 0RF Rx Instructions: Partial Fill upon patient request. prednisone 20 mg tablet 40 mg PO DAILY 5 Days Qty: 10 0RF tramadol 50 mg tablet 50 mg PO TID PRN (Reason: pain) 3 Days Qty: 9 0RF oxycodone 5 mg tablet 5 mg PO Q8H PRN (Reason: pain) Qty: 14 0RF Rx Instructions: Partial Fill upon patient request. diazepam [Valium] 2 mg tablet 2 mg PO BEDTIME PRN (Reason: muscle spasm) Qty: 7 0RF dexamethasone 4 mg tablet 4 mg PO BID Qty: 6 0RF tramadol 50 mg tablet 50 mg PO TID PRN (Reason: severe pain (scale score 7-10)) Qty: 12 0RF hydrocodone-acetaminophen 5-325 mg tablet 1 tab PO Q4-6H PRN (Reason: pain) Qty: 5 0RF Rx Instructions: Partial Fill upon patient request. clindamycin phosphate 1 % gel 1 appl topical BID Qty: 30 0RF cyclobenzaprine 10 mg tablet 10 mg PO TID PRN (Reason: muscle spasm) Qty: 10 0RF lidocaine [Lidoderm] 5 % adhesive patch,medicated 1 patch topical DAILY Qty: 15 0RF Rx Instructions: leave on most painful area for up to 12 hrs cyclobenzaprine 10 mg tablet 10 mg PO Q8H Qty: 20 0RF oxycodone 5 mg tablet 5 mg PO Q6H PRN (Reason: pain) Qty: 20 0RF Rx Instructions: Partial Fill upon patient request. tramadol 50 mg tablet 50 mg PO Q6H PRN (Reason: pain) Qty: 20 0RF ondansetron 4 mg tablet,disintegrating 4 mg PO Q6-8H PRN (Reason: nausea and vomiting) Qty: 10 0RF meclizine 25 mg tablet 25 mg PO TID PRN (Reason: dizziness) Qty: 20 0RF acarbose 25 mg tablet 25 mg PO TID 30 Days Qty: 90 4RF hydrochlorothiazide 12.5 mg capsule 12.5 mg PO DAILY ferrous sulfate 325 mg (65 mg iron) tablet,delayed release (DR/EC) 325 mg PO DAILY (DME) blood-glucose meter [FreeStyle Lite Meter] Kit See Rx Instructions .Route Qty: 1 0RF Rx Instructions: As directed test blood sugar two times a day cyanocobalamin (vitamin B-12) 1,000 mcg tablet 1,000 mcg PO QAM sucralfate 100 mg/mL suspension 10 ml PO TID Rx Instructions: swish in mouth and swallow; use after food/drink Referrals: Joyce Tapia MD [Primary Care Provider] - Interventions: ED Discharge Assessment Last Done: 06/11/23 12:30 Discharge Date/Time: 06/11/23 12:30 Print Language: Lao
[2023-06-11] MEDS: Albuterol Sulfate 2.5 MG, Albuterol/Iprat 2.5/0.5MG 3 ML 3 ML INHALE (09:55)
[2023-06-11 09:56] VITALS: PULSE 77; RESP 22; O2SAT 96
[2023-06-11 10:38] LABS: MANUAL DIFF FLAG NO
[2023-06-11 10:40] LABS: Basophils Percent Auto 0.1 % (0-2); Eosinophils Absolute Auto 0.1 X10*3/uL (0.0-0.4); Eosinophils Percent Auto 1.2 % (0-4); Hematocrit 37.9 % (37.0-47.0); Hemoglobin 12.5 g/dl (12.0-16.0); Imm Gran Abs Auto 0.01 X10*3/uL (0.00-0.03); Imm Gran Pct Auto 0.1 % (0.0-0.4); Lymphocytes Absolute Auto 1.6 X10*3/uL (1.2-4.9); Mean Corpuscular Hemoglobin 28.9 pg (27.0-33.0); Mean Corpuscular Volume 87.7 fL (80.0-98.0); Mean Platelet Volume 9.4 fL (9.4-12.3); Monocytes Absolute Auto 0.3 X10*3/uL (0.1-1.2); Monocytes Percent Auto 4.9 % (2-11); Neutrophils Absolute Auto 4.7 x10*3/uL (2.0-8.3); Neutrophils Percent Auto 69.7 % (45-73); Platelet Count 191 X10*3/uL (160-400); Red Blood Count 4.32 X10*6/uL (4.20-5.50); Red Cell Distribution Width 12.5 % (11.0-16.0); White Blood Count 6.8 X10*3/uL (4.8-10.8)
[2023-06-11] MEDS: methylPREDNISolone Sod Succ 125 MG/2 ML VIAL 60 MG IVPUSH (10:40)
[2023-06-11] MEDS: Magnesium Sulfate/D5W 1 GM/100 ML PIGGYBACK IV (10:40)
[2023-06-11 10:45] VITALS: BP 125/70; PULSE 85; RESP 16; TEMP 36.8; O2SAT 93
[2023-06-11 10:53] LABS: Alanine Aminotransferase 16 U/L (0-31); Alkaline Phosphatase 85 U/L (39-117); Anion Gap 14 (12-20); Aspartate Amino Transferase 18 U/L (5-31); Bilirubin Total 0.4 mg/dL (0.0-1.0); Blood Urea Nitrogen 16 mg/dL (9-16); Carbon Dioxide 26 mmol/L (22-29); Chloride 105 mmol/L (96-108); Creatinine Clr Calc Pharmacy 73.3; Estimated Glomerular Filt Rate > 60; Glucose Random 183 mg/dL (60-115); Magnesium 2.1 mg/dL (1.6-2.6); Potassium 3.1 mmol/L (3.3-5.1); Sodium 142 mmol/L (135-145); Total Protein 6.8 g/dL (6.5-8.0)
[2023-06-11 10:57] LABS: Influenza A PCR NEGATIVE (Negative); Influenza B PCR NEGATIVE (Negative); Resp Syncy Virus RNA Qual PCR NEGATIVE (Negative); SARS COV2 PCR INHOUSE NEGATIVE (Negative)
[2023-06-11] MEDS: Acetaminophen 325 MG TABLET 650 MG PO (11:57)
[2023-06-11] MEDS: Potassium Chloride Packet 20 MEQ PACKET PO (11:57)
== END 2023-06-11 12:30 | disposition home or self-care (01) ==
PROVIDERS: Physician Assistant Medical; Emergency Provider Emergency Medicine Emergency Medical Services; PCP Student in an Organized Health Care Education/Training Program
DX: J45.901 Unspecified asthma with (acute) exacerbation (principal); E87.6 Hypokalemia; R06.02 Shortness of breath; R05.9 Cough, unspecified; E11.9 Type 2 diabetes mellitus without complications; J45.909 Unspecified asthma, uncomplicated; Z20.822 Contact with and (suspected) exposure to COVID-19; Z20.828 Contact with and (suspected) exposure to other viral communicable diseases
CPT/HCPCS: 0241U; 36415; 71046; 80053; 83735; 85025; 94640; 96365; 96375; 99285; J2930; J3475

== ENCOUNTER 2023-06-22 14:23 | Outpatient (AMB) | payer MEDICAID, SELFPAY ==
--- NOTE | 2023-06-22 14:26 | A.OFFVIS_ITS ---
Intake Vital Signs 06/22/23 14:32 Height 5 ft 3 in Weight 157 lb BMI 27.8 BP 115/62 Blood Pressure Location Lt brachial Position Sitting Pulse 85 Intake Visit Reasons: Colonoscopy Screening, Dr. Teresa pt Intake Note: Patient new consult for 2nd pre colonoscopy, Dr. Teresa former patient. Patient cc: vomiting, abdominal pain with bloating, acid reflex, between diarrhea and constipation. 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 Accompanied by: Self / Same As Patient Allergies Penicillins Allergy (Intermediate, Verified 06/22/23 14:26) HIVES sulfamethoxazole [From BACTRIM] Allergy (Intermediate, Verified 06/22/23 14:26) BLISTERS- DELGADO - NERVE ENDINGS IN HAND/ERYTHEMA MULTIFORM trimethoprim [From BACTRIM] Allergy (Intermediate, Verified 06/22/23 14:26) BLISTERS- DELGADO - NERVE ENDINGS IN HAND/ERYTHEMA MULTIFORM latex [Latex] Allergy (Mild, Verified 06/22/23 14:26) RASH theophylline Adverse Reaction (Intermediate, Verified 06/22/23 14:26) TACHYCARDIA TEGADERM Allergy (Intermediate, Uncoded 02/11/23 10:01) SKIN TEARS From COMPAZINE Adverse Reaction (Severe, Uncoded 02/11/23 10:01) SEIZURES Medication List - Last Reconciled 06/22/23 by Lucy Bradley PA-C acarbose 25 mg PO TID 30 days albuterol sulfate 1.25 mg (3 mL) inhalation QID PRN blood sugar diagnostic (FreeStyle Lite Strips) USE TO TEST BLOOD SUGAR TWICE DAILY blood-glucose meter (FreeStyle Lite Meter kit) As directed test blood sugar two times a day cholecalciferol (vitamin D3) 50 mcg PO DAILY clindamycin phosphate 1% 1 appl topical BID cyanocobalamin (vitamin B-12) 1,000 mcg PO QAM cyclobenzaprine 10 mg PO Q8H ferrous sulfate 325 mg PO DAILY fluticasone propionate 50 mcg/actuation (Flonase Allergy Relief) 2 sprays intranasal DAILY hydrochlorothiazide 12.5 mg PO DAILY hydrocodone-acetaminophen 5-325 mg 1 tab PO Q4-6H PRN hydrocodone-acetaminophen 5-325 mg 1 tab PO Q6H PRN hydroxyzine HCl 50 mg PO BEDTIME lidocaine 5% (Lidoderm) 1 patch topical DAILY PRN MDD remove after 12 hours lidocaine 5% (Lidoderm) 1 patch topical DAILY meclizine 25 mg PO TID PRN metformin ER 500 mg PO BID ondansetron 4 mg PO Q6-8H PRN oxycodone 5 mg PO BID PRN oxycodone 5 mg PO Q6H PRN oxycodone 5 mg PO Q6H PRN oxycodone 5 mg PO Q8H PRN pantoprazole 40 mg PO Q12H pramipexole 1 tab DAILY prednisone 40 mg (2 x 20 mg) PO DAILY 5 days sertraline 1 tab PO BEDTIME sucralfate 10 mL PO TID thiamine HCl (vitamin B1) 100 mg PO DAILY tizanidine 1 tab PO BEDTIME tramadol 50 mg PO Q6H PRN tramadol 50 mg PO TID PRN 3 days tramadol 50 mg PO TID PRN HPI HPI Comments History of Present Illness Details 62-year-old female referred for screenin g colonoscopy- established Dr. Teresa- Colonoscopy- 2014 and 2018 multiple EGD- She has intermittent diarrhea- she has had a lot of GI issues since gastric by pass- about 4 years ago-she had 4 EGD- Intermittent LLQ pain- has alternating stool pattern-she maintains high fiber Follows with Dr. Herndon- Appetite is fair, bowel or old alternating-no rectal bleeding No abdominal pain, fever or chills PFSH Medical History (Updated 06/29/23 @ 11:36 by Lucy Bradley PA-C) Abdominal pain Infection of skin due to methicillin resistant Staphylococcus aureus (MRSA) Numbness of right hand COVID-19 Sebaceous cyst Abscess Cubital tunnel syndrome on left Contusion of right ankle Numbness and tingling in left hand Left hand pain Stiffness of left hand joint Emesis Overweight (BMI 25.0-29.9) Borderline diabetes Dyslipidemia Non-toxic multinodular goiter Diabetes type 2, controlled History of restless legs syndrome Anxiety Depression High cholesterol Asthma DVT (deep venous thrombosis) GERD (gastroesophageal reflux disease) Anastomotic ulcer Surgical History H/O removal of cyst (02/03/23) History of removal of cyst (07/28/22) Hx of cholecystectomy History of surgery History of surgery on left wrist Hx of elbow surgery History of excision of epidermal inclusion cyst (03/23/22) Hx of excision of epidermal inclusion cyst (12/25/21) History of excision of mass (10/26/21) S/P trigger finger release History of tooth extraction Hx of hand surgery Hx of esophagogastroduodenoscopy S/P gastric bypass History of hysterectomy Family History Mother Diabetes mellitus CHF (congestive heart failure) Kidney failure Cervical cancer Brother No problems noted. Brother No problems noted. 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 Review of Systems Const All systems reviewed & are unremarkable except as noted in HPI and below Card Denies chest pain and Denies dyspnea Resp Denies dyspnea GI Denies hematochezia, Reports diarrhea, Reports nausea and Reports vomiting Psych Reports anxiety, Reports depression, Denies homicidal ideation and Denies suicidal ideation Physical Exam Vital Signs: Last Vital Signs Pulse 85 06/22/23 14:32 BP 115/62 06/22/23 14:32 BMI result Body Mass Index 27.8 Const General: cooperative, comfortable and no acute distress Results Reviewed Results Reviewed: IVER, GALLBLADDER, AND BILIARY TREE: The liver is normal in size, shape, and attenuation. No focal hepatic lesion. Cholecystectomy. Mild intrahepatic and extrahepatic biliary ductal dilatation. No ductal filling defec CT/CT abdomen pelvis w IV con IMPRESSION: No acute findings in the abdomen or pelvis. Postsurgical changes of gastric bypass. No obstruction. Fleischner guidelines were followed. Assessment & Plan Assessment & Plan (1) GERD (gastroesophageal reflux disease): Code(s): K21.9 - Gastro-esophageal reflux disease without esophagitis Plan: Reflux precautions (2) S/P gastric bypass: Comment: 01/2019 Code(s): Z98.84 - Bariatric surgery status Plan: Follow back Dr. Pa as needed (3) Anastomotic ulcer: Code(s): K28.9 - Gastrojejunal ulcer, unspecified as acute or chronic, without hemorrhage or perforation Plan: EGD Consistent medication (4) Chronic diarrhea: Code(s): K52.9 - Noninfective gastroenteritis and colitis, unspecified (5) Nausea and vomiting: Comment: Symptoms vague Code(s): R11.2 - Nausea with vomiting, unspecified Plan: EGD Plan EGD/ colo MG prep- Omit metformin mick before and no dm meds morning of procedure Review medication list for accuracy patient aware, to be prepared Orders: Orders US abdomen complete 06/22/23 R10.9 - Unspecified abdominal pain, R11.2 - Nausea with vomiting, unspecified EGD/[place] Combo - GI Use Only 06/22/23 K21.9 - Gastro-esophageal reflux disease without esophagitis, K52.9 - Noninfective gastroenteritis and colitis, unspecified, R11.2 - Nausea with vomiting, unspecified, Z98.84 - Bariatric surgery status Medications: New bisacodyl (Dulcolax (bisacodyl)) Day before procedure, prep day Take 4 tablets by mouth upon awakening followed by large glass of water 20 mg (4 x 5 mg) PO ONCE 1 day 4 tabs 0RF colonoscopy prep Z12.11 - Encounter for screening for malignant neoplasm of colon polyethylene glycol 3350 (Miralax) Take as directed by mouth the day before your procedure. 238 grams PO ONCE 1 day PRN 238 grams 0RF laxative effect Patient Instructions: 62-year-old female multiple GI complaints, history gastric bypass, may likely have functional component. Reviewed previous procedure Encouraged to take medications consistently as prescribed Are reviewed reflux precautions, avoidance of culprits EGD/ colonoscopy-discussed procedures, rare risk need for escorted due to anesthesia MG prep-reviewed literature given Omit metformin mick before and no dm meds morning of procedure Encouraged to call with questions or concerns Appreciate the opportunity assist in the care the patient Coding Level of Care Code New Pt Level 4 (36483) Diagnoses GERD (gastroesophageal reflux disease) K21.9 S/P gastric bypass Z98.84 Anastomotic ulcer K28.9 Chronic diarrhea K52.9 Nausea and vomiting R11.2 Time Spent (min) 40
[2023-06-22 14:32] VITALS: BP 115/62; PULSE 85; BMI 27.8
== END 2023-06-22 15:31 | disposition home or self-care (01) ==
PROVIDERS: PCP Student in an Organized Health Care Education/Training Program; Visit Provider Physician Assistant
DX: K21.9 Gastro-esophageal reflux disease without esophagitis (principal); Z98.84 Bariatric surgery status; K28.9 Gastrojejunal ulcer, unspecified as acute or chronic, without hemorrhage or perforation; K52.9 Noninfective gastroenteritis and colitis, unspecified; R11.2 Nausea with vomiting, unspecified
CPT/HCPCS: 99204

== ENCOUNTER → 2023-06-22 14:23 | Outpatient (BNVA) | payer MEDICAID, SELFPAY | PROVIDERS: PCP Student in an Organized Health Care Education/Training Program; Visit Provider Physician Assistant | DX: K21.9 Gastro-esophageal reflux disease without esophagitis (principal); K28.9 Gastrojejunal ulcer, unspecified as acute or chronic, without hemorrhage or perforation; K52.9 Noninfective gastroenteritis and colitis, unspecified; R11.2 Nausea with vomiting, unspecified; Z98.84 Bariatric surgery status | CPT/HCPCS: 99212 ==

== ENCOUNTER 2023-07-17 16:04 | Emergency (ER) | payer MEDICAID, SELFPAY ==
--- NOTE | ~2023-07-17 | CT_ITS ---
EXAMINATION: CT ABDOMEN AND PELVIS WITHOUT CONTRAST CLINICAL INFORMATION: Right flank pain. COMPARISON: 01/25/2023 TECHNIQUE: Multidetector volumetric imaging was performed from the superior aspect of the liver through the pubic symphysis. Sagittal and coronal reformatted images were obtained on the technologist's workstation. This CT examination was performed using dose optimization techniques as appropriate, variously including the following: *Automated exposure control *Adjustment of mA and/or kV according to patient size (this includes techniques or standardized protocols for targeted exams where dose is matched to indication/reason for exam; i.e. extremities or head) *Use of iterative reconstruction technique DLP: 517 mGy-cm FINDINGS: LUNG BASES: The visualized lung bases are unremarkable. LIVER, GALLBLADDER, AND BILIARY TREE: The liver is normal in size, shape, and attenuation. No focal hepatic lesion or biliary ductal dilatation is present. Gallbladder is surgically absent. PANCREAS: Unremarkable. SPLEEN: Unremarkable. ADRENAL GLANDS: Unremarkable. KIDNEYS AND URETERS: The kidneys are normal in size, shape, and attenuation. No hydronephrosis, hydroureter, or calculi seen. No perinephric stranding. BLADDER: Unremarkable. GASTROINTESTINAL TRACT: Postsurgical changes of prior José Manuel-en-Y gastric bypass. The stomach, small bowel, and colon are normal in caliber. No abnormal bowel dilatation at the José Manuel limb or at the jejunojejunal anastomosis. No bowel wall thickening or surrounding inflammatory changes. There is mild to moderate colonic diverticulosis without evidence of acute diverticulitis. Multiple duodenal diverticula are also noted. Appendix is normal. No intraperitoneal free fluid or free air. ABDOMINAL WALL: No significant hernia is appreciated. LYMPH NODES: Normal. VASCULAR: Minimal calcific atherosclerosis in the abdominal aorta. No aneurysmal dilatation. PELVIC VISCERA: Uterus appears surgically absent. No adnexal lesions are identified. OSSEOUS STRUCTURES: Facet arthropathy is most notable in the lower lumbar spine. Minimal degenerative disc disease. No fracture or malalignment. Mild osteoarthritis in the hips and SI joints. CT/CT abdomen pelvis wo IV con IMPRESSION: 1. No acute intra-abdominal or intrapelvic abnormalities. No nephrolithiasis or evidence of obstructive uropathy. 2. Status post José Manuel-en-Y gastric bypass without evidence of complications. 3. Mild to moderate colonic diverticulosis without evidence of acute diverticulitis. Fleischner guidelines were followed.
--- NOTE | 2023-07-17 16:46 | ED_ITS ---
HPI - General Adult General Chief complaint: Upper Respiratory Symptoms Stated complaint: right kidney pain Time Seen by Provider: 07/17/23 23:43 Source: patient Mode of arrival: ambulatory Limitations: no limitations History of Present Illness HPI narrative: Patient with history of remote kidney stone comes in for right flank pain for last 10 days associated with nausea and vomiting no urinary complaints also complaining of pain in the right thumb which is going on for more than a month does not remember any injury no urinary symptoms no hematuria no diarrhea patient does have chronic back pain and gets 15 tablets of oxycodone every week from PCP Related Data Home Medications Medication Instructions Recorded Confirmed hydrochlorothiazide 12.5 mg capsule 12.5 mg PO DAILY 05/09/20 06/22/23 hydroxyzine HCl 25 mg tablet 50 mg PO BEDTIME 06/04/20 06/22/23 pramipexole 0.25 mg tablet 1 tab DAILY 10/20/21 06/22/23 sertraline 100 mg tablet 1 tab PO BEDTIME 10/20/21 06/22/23 tizanidine 4 mg tablet 1 tab PO BEDTIME 10/20/21 06/22/23 ferrous sulfate 325 mg (65 mg 325 mg PO DAILY 06/01/22 06/22/23 iron) tablet,delayed release cyanocobalamin (vitamin B-12) 1,000 mcg PO QAM 06/03/22 06/22/23 1,000 mcg tablet metformin 500 mg tablet,extended 500 mg PO BID 06/03/22 06/22/23 release 24 hr sucralfate 100 mg/mL oral 10 ml PO TID 12/21/22 06/22/23 suspension Previous Rx's Medication Instructions Recorded cholecalciferol (vitamin D3) 50 50 mcg PO DAILY #30 caps 12/15/20 mcg (2,000 unit) capsule acarbose 25 mg tablet 25 mg PO TID 30 days #90 tabs 12/31/20 fluticasone propionate 50 2 spray intranasal DAILY #16 grams 06/21/21 mcg/actuation nasal spray,suspension (Flonase Allergy Relief) blood-glucose meter (FreeStyle #1 ea 08/21/21 Lite Meter kit) blood sugar diagnostic (FreeStyle #150 strips 03/30/22 Lite Strips) thiamine HCl (vitamin B1) 100 mg 100 mg PO DAILY #90 tabs 06/07/22 tablet lidocaine 5 % topical patch 1 patch topical DAILY PRN pain #30 08/13/22 (Lidoderm) ea hydrocodone 5 mg-acetaminophen 325 1 tab PO Q4-6H PRN pain #5 tabs 10/14/22 mg tablet hydrocodone 5 mg-acetaminophen 325 1 tab PO Q6H PRN pain #10 tabs 10/14/22 mg tablet oxycodone 5 mg tablet 5 mg PO BID PRN pain #5 tabs 10/31/22 clindamycin phosphate 1 % topical 1 appl topical BID #30 grams 11/07/22 gel lidocaine 5 % topical patch 1 patch topical DAILY #15 ea 11/10/22 (Lidoderm) cyclobenzaprine 10 mg tablet 10 mg PO Q8H #20 tabs 01/07/23 oxycodone 5 mg tablet 5 mg PO Q6H PRN pain #20 tabs 01/07/23 ondansetron 4 mg disintegrating 4 mg PO Q6-8H PRN nausea and 01/25/23 tablet vomiting #10 tabs tramadol 50 mg tablet 50 mg PO Q6H PRN pain #20 tabs 01/25/23 oxycodone 5 mg tablet 5 mg PO Q6H PRN pain (scale score 02/03/23 7-10) #10 tabs meclizine 25 mg tablet 25 mg PO TID PRN dizziness #20 tabs 02/11/23 prednisone 20 mg tablet 40 mg (2 x 20 mg) PO DAILY 5 days 02/14/23 #10 tabs tramadol 50 mg tablet 50 mg PO TID PRN pain 3 days #9 02/14/23 tabs oxycodone 5 mg tablet 5 mg PO Q8H PRN pain #14 tabs 03/09/23 tramadol 50 mg tablet 50 mg PO TID PRN severe pain 05/10/23 (scale score 7-10) #12 tabs pantoprazole 40 mg tablet,delayed 40 mg PO Q12H #60 tabs 06/07/23 release albuterol sulfate 1.25 mg/3 mL 1.25 mg (3 mL) inhalation QID PRN 06/11/23 solution for nebulization shortness of breath or wheezing #90 mL bisacodyl 5 mg tablet,delayed 20 mg (4 x 5 mg) PO ONCE 06/22/23 release (Dulcolax (bisacodyl)) colonoscopy prep 1 day #4 tabs polyethylene glycol 3350 17 238 g PO ONCE PRN laxative effect 06/22/23 gram/dose oral powder (Miralax) 1 day #238 grams diclofenac sodium 1 % topical gel 2 g topical BID PRN pain (scale 07/18/23 (Aleve (diclofenac)) score 4-6) #100 grams Allergies Allergy/AdvReac Type Severity Reaction Status Date / Time Penicillins Allergy Intermediate HIVES Verified 07/17/23 16:47 sulfamethoxazole Allergy Intermediate BLISTERS- Verified 07/17/23 16:47 [From BACTRIM] DELGADO - NERVE ENDINGS IN HAND/ERYTHEMA MULTIFORM trimethoprim [From BACTRIM] Allergy Intermediate BLISTERS- Verified 07/17/23 16:47 DELGADO - NERVE ENDINGS IN HAND/ERYTHEMA MULTIFORM latex [Latex] Allergy Mild RASH Verified 07/17/23 16:47 theophylline AdvReac Intermediate TACHYCARDIA Verified 07/17/23 16:47 TEGADERM Allergy Intermediate SKIN TEARS Uncoded 07/17/23 16:47 From COMPAZINE AdvReac Severe SEIZURES Uncoded 07/17/23 16:47 Review of Systems 2 Review of Systems: Yes all other systems are reviewed and are negative PMFSH Past Medical History Onset Date is defined in the Problem List Problems that require an onset date and time if occurred within 24 hrs of arrival to the ED Aortic Dissection and Rupture; Neurologic impairment; Cardiopulmonary Arrest; Endotracheal Intubation; Insertion or Replacement of Mechanical Circulatory Assist Device Medical History (Updated 07/18/23 @ 01:58 by Clay Galvan MD) Abdominal pain Infection of skin due to methicillin resistant Staphylococcus aureus (MRSA) Numbness of right hand COVID-19 Sebaceous cyst Abscess Cubital tunnel syndrome on left Contusion of right ankle Numbness and tingling in left hand Left hand pain Stiffness of left hand joint Emesis Overweight (BMI 25.0-29.9) Borderline diabetes Dyslipidemia Non-toxic multinodular goiter Diabetes type 2, controlled History of restless legs syndrome Anxiety Depression High cholesterol Asthma DVT (deep venous thrombosis) GERD (gastroesophageal reflux disease) Anastomotic ulcer Surgical History H/O removal of cyst (02/03/23) History of removal of cyst (07/28/22) Hx of cholecystectomy History of surgery History of surgery on left wrist Hx of elbow surgery History of excision of epidermal inclusion cyst (03/23/22) Hx of excision of epidermal inclusion cyst (12/25/21) History of excision of mass (10/26/21) S/P trigger finger release History of tooth extraction Hx of hand surgery Hx of esophagogastroduodenoscopy S/P gastric bypass History of hysterectomy Family History Family History Mother Diabetes mellitus CHF (congestive heart failure) Kidney failure Cervical cancer Brother No problems noted. Brother No problems noted. 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 Oriented X3. No acute distress. ENT: Pharynx normal. Oral Mucosa moist Neck: Normal inspection. Neck supple. CVS: Normal heart rate and rhythm. Pulses normal. Respiratory: No respiratory distress. Equal air entry bilateral, Abdomen: Soft and nontender. Bowel sounds are present, no mass palpable, right CVA tenderness Skin: Skin warm and dry. Normal skin color. Normal skin turgor. Extremities: No lower extremity edema. No calf tenderness tenderness right policis longus tendon with slight swelling Neuro: Oriented X 3. Course Course Course Narrative: This is an RME: Additional HPI, ROS, PE not included below will be deferred to primary provider. 62-year-old female with past medical history significant for dyslipidemia, type 2 diabetes, GERD, carpal tunnel syndrome presents for evaluation of kidney pain X 1 week. Reporting pain into her right flank. Reporting nausea, vomiting, diarrhea. Reporting she is urinating more frequently. Plan: Labs, Flu/COVID, UA Medications Administered Discontinued Medications Generic Name Dose Route Start Last Admin Trade Name Richardq PRN Reason Stop Dose Admin Sodium Chloride 1,000 mls @ 999 mls/hr 07/18/23 00:09 07/18/23 01:56 Ns IV 07/18/23 01:09 Infused .Q1H1M ONE Infusion Morphine Sulfate 4 mg 07/18/23 00:07 07/18/23 00:40 Morphine Sulfate 4 Mg/Ml Cartridge IVPUSH 07/18/23 00:08 4 mg ONCE ONE Administration Protocol Ondansetron HCl 4 mg 07/18/23 00:07 07/18/23 00:39 Ondansetron Hcl 4 Mg/2 Ml Vial IVPUSH 07/18/23 00:08 4 mg ONCE ONE Administration Medical Decision Making Medical Decision Making [facility] Narrative: Patient's CT scan is negative patient does take oxycodone regular basis for chronic back pain likely chronic pain I will advise patient to continue her oxycodone which she will get from her PCP tomorrow advised to apply diclofenac gel twice daily at the painful area Differential Diagnosis Differential Diagnoses: The differential diagnosis associated with the presentation includes Kidney stone/chronic back pain/nonspecific abdominal pain/diverticulitis Lab Data [facility] Lab Attestation statement: I reviewed the patient's lab results. 07/17/23 16:56 07/17/23 16:56 Labs: Lab Results 07/17/23 07/17/23 Range/Units 16:56 21:58 WBC 7.6 (4.8-10.8) X10*3/uL RBC 4.54 (4.20-5.50) X10*6/uL Hgb 13.2 (12.0-16.0) g/dl Hct 39.2 (37.0-47.0) % MCV 86.3 (80.0-98.0) fL MCH 29.1 (27.0-33.0) pg MCHC 33.7 (31.0-35.0) g/dl RDW 12.4 (11.0-16.0) % Plt Count 193 (160-400) X10*3/uL MPV 9.7 (9.4-12.3) fL Immature Gran % (Auto) 0.3 (0.0-0.4) % Neut % (Auto) 63.7 (45-73) % Lymph % (Auto) 27.8 (20-40) % [place] % (Auto) 5.3 (2-11) % Eos % (Auto) 2.6 (0-4) % Baso % (Auto) 0.3 (0-2) % Lymph # (Auto) 2.1 (1.2-4.9) X10*3/uL [place] # (Auto) 0.4 (0.1-1.2) X10*3/uL Eos # (Auto) 0.2 (0.0-0.4) X10*3/uL Baso # (Auto) 0.0 (0.0-0.2) X10*3/uL Abs Immat Gran (auto) 0.02 (0.00-0.03) X10*3/uL Absolute Neuts (auto) 4.8 (2.0-8.3) x10*3/uL Absolute Nucleated RBC 0.000 (0.0-0.012) X10*3/uL Nucleated RBC % (auto) 0.0 (0.0-0.2) /100WBC Sodium 140 (135-145) mmol/L Potassium 4.0 (3.3-5.1) mmol/L Chloride 106 (96-108) mmol/L Carbon Dioxide 28 (22-29) mmol/L Anion Gap 10 L (12-20) BUN 14 (9-16) mg/dL Creatinine 1.00 (0.5-1.4) mg/dL Estim Creat Clear Calc 56.2 Estimated GFR 57 Random Glucose 129 H (60-115) mg/dL Calcium 8.7 (8.4-10.2) mg/dL Total Bilirubin 0.2 (0.0-1.0) mg/dL Direct Bilirubin < 0.2 (0.0-0.5) mg/dL AST 14 (5-31) U/L ALT 15 (0-31) U/L Alkaline Phosphatase 77 (39-117) U/L Total Protein 6.5 (6.5-8.0) g/dL Albumin 3.9 (3.5-5.0) g/dL Urine Color Yellow Urine Appearance Clear Urine pH 6.5 (5.0-9.0) Ur Specific [place] 1.010 (1.005-1.025) Urine Protein Negative (Neg-Trace) mg/dL Urine Glucose (UA) 250 H (Negative) mg/dL Urine Ketones Negative (Negative) mg/dL Urine Blood Negative (Negative) Urine Nitrite Negative (Negative) Ur Leukocyte Esterase Negative (Negative) COVID-19 (HANSA) Negative (Negative) COVID-19 Clin Com See Note Influenza Type A (ASHA) Negative (Negative) Influenza Type B (ASHA) Negative (Negative) Influenza A & B Note See Note Discharge Plan Discharge Clinical Impression: Chronic back pain, Tendinitis of thumb Patient Disposition: Home, Self-Care Instructions: Tendinitis (ED), Chronic Back Pain (DC) Additional Instructions: Wear the splint for right thumb tendinitis Continue her oxycodone as prescribed by your PCP Apply diclofenac gel at painful area twice daily Prescriptions: New diclofenac sodium [Aleve (diclofenac)] 1 % gel 2 g topical BID PRN (Reason: pain (scale score 4-6)) Qty: 100 0RF Rx Instructions: apply to single elbow, wrist or hand; for hand includes palm/fingers/back of hand No Action cholecalciferol (vitamin D3) 50 mcg (2,000 unit) capsule 50 mcg PO DAILY Qty: 30 11RF (DME) FreeStyle Lite Strips Strip See Rx Instructions .ROUTE .COMPLEX Qty: 150 6RF Dose Instruction: USE TO TEST BLOOD SUGAR TWICE DAILY Rx Instructions: USE TO TEST BLOOD SUGAR TWICE DAILY thiamine HCl (vitamin B1) 100 mg tablet 100 mg PO DAILY Qty: 90 3RF hydrocodone-acetaminophen 5-325 mg tablet 1 tab PO Q6H PRN (Reason: pain) Qty: 10 0RF Rx Instructions: Partial Fill upon patient request. pantoprazole 40 mg tablet,delayed release (DR/EC) 40 mg PO Q12H Qty: 60 6RF hydroxyzine HCl 25 mg tablet 50 mg PO BEDTIME sertraline 100 mg tablet 1 tab PO BEDTIME pramipexole 0.25 mg tablet 1 tab DAILY tizanidine 4 mg tablet 1 tab PO BEDTIME lidocaine [Lidoderm] 5 % adhesive patch,medicated 1 patch topical DAILY MDD remove after 12 hours PRN (Reason: pain) Qty: 30 0RF Rx Instructions: leave on most painful area for up to 12 hrs fluticasone propionate [Flonase Allergy Relief] 50 mcg/actuation spray,suspension 2 spray intranasal DAILY Qty: 16 0RF Rx Instructions: administer into each nostril metformin 500 mg tablet extended release 24 hr 500 mg PO BID oxycodone 5 mg tablet 5 mg PO BID PRN (Reason: pain) Qty: 5 0RF Rx Instructions: Partial Fill upon patient request. oxycodone 5 mg tablet 5 mg PO Q6H PRN (Reason: pain (scale score 7-10)) Qty: 10 0RF Rx Instructions: Partial Fill upon patient request. prednisone 20 mg tablet 40 mg PO DAILY 5 Days Qty: 10 0RF tramadol 50 mg tablet 50 mg PO TID PRN (Reason: pain) 3 Days Qty: 9 0RF oxycodone 5 mg tablet 5 mg PO Q8H PRN (Reason: pain) Qty: 14 0RF Rx Instructions: Partial Fill upon patient request. tramadol 50 mg tablet 50 mg PO TID PRN (Reason: severe pain (scale score 7-10)) Qty: 12 0RF albuterol sulfate 1.25 mg/3 mL solution for nebulization 1.25 mg inhalation QID PRN (Reason: shortness of breath or wheezing) Qty: 90 0RF hydrocodone-acetaminophen 5-325 mg tablet 1 tab PO Q4-6H PRN (Reason: pain) Qty: 5 0RF Rx Instructions: Partial Fill upon patient request. clindamycin phosphate 1 % gel 1 appl topical BID Qty: 30 0RF lidocaine [Lidoderm] 5 % adhesive patch,medicated 1 patch topical DAILY Qty: 15 0RF Rx Instructions: leave on most painful area for up to 12 hrs cyclobenzaprine 10 mg tablet 10 mg PO Q8H Qty: 20 0RF oxycodone 5 mg tablet 5 mg PO Q6H PRN (Reason: pain) Qty: 20 0RF Rx Instructions: Partial Fill upon patient request. tramadol 50 mg tablet 50 mg PO Q6H PRN (Reason: pain) Qty: 20 0RF ondansetron 4 mg tablet,disintegrating 4 mg PO Q6-8H PRN (Reason: nausea and vomiting) Qty: 10 0RF meclizine 25 mg tablet 25 mg PO TID PRN (Reason: dizziness) Qty: 20 0RF acarbose 25 mg tablet 25 mg PO TID 30 Days Qty: 90 4RF hydrochlorothiazide 12.5 mg capsule 12.5 mg PO DAILY ferrous sulfate 325 mg (65 mg iron) tablet,delayed release (DR/EC) 325 mg PO DAILY (DME) blood-glucose meter [FreeStyle Lite Meter] Kit See Rx Instructions .Route Qty: 1 0RF Rx Instructions: As directed test blood sugar two times a day cyanocobalamin (vitamin B-12) 1,000 mcg tablet 1,000 mcg PO QAM sucralfate 100 mg/mL suspension 10 ml PO TID Rx Instructions: swish in mouth and swallow; use after food/drink bisacodyl [Dulcolax (bisacodyl)] 5 mg tablet,delayed release (DR/EC) 20 mg PO ONCE 1 Days Qty: 4 0RF Rx Instructions: Day before procedure, prep day Take 4 tablets by mouth upon awakening followed by large glass of water polyethylene glycol 3350 [Miralax] 17 gram/dose powder 238 g PO ONCE PRN (Reason: laxative effect) 1 Days Qty: 238 0RF Rx Instructions: Take as directed by mouth the day before your procedure.
[2023-07-17 16:47] VITALS: BP 116/79; PULSE 77; RESP 18; TEMP 36.7; O2SAT 97; BMI 27.5
[2023-07-17 17:00] LABS: MANUAL DIFF FLAG NO
[2023-07-17 17:02] LABS: Basophils Percent Auto 0.3 % (0-2); Eosinophils Absolute Auto 0.2 X10*3/uL (0.0-0.4); Eosinophils Percent Auto 2.6 % (0-4); Hematocrit 39.2 % (37.0-47.0); Hemoglobin 13.2 g/dl (12.0-16.0); Imm Gran Abs Auto 0.02 X10*3/uL (0.00-0.03); Imm Gran Pct Auto 0.3 % (0.0-0.4); Lymphocytes Absolute Auto 2.1 X10*3/uL (1.2-4.9); Lymphocytes Percent Auto 27.8 % (20-40); Mean Corpuscular HGB Conc 33.7 g/dl (31.0-35.0); Mean Corpuscular Hemoglobin 29.1 pg (27.0-33.0); Mean Corpuscular Volume 86.3 fL (80.0-98.0); Mean Platelet Volume 9.7 fL (9.4-12.3); Monocytes Absolute Auto 0.4 X10*3/uL (0.1-1.2); Monocytes Percent Auto 5.3 % (2-11); Neutrophils Absolute Auto 4.8 x10*3/uL (2.0-8.3); Neutrophils Percent Auto 63.7 % (45-73); Platelet Count 193 X10*3/uL (160-400); Red Blood Count 4.54 X10*6/uL (4.20-5.50); Red Cell Distribution Width 12.4 % (11.0-16.0); White Blood Count 7.6 X10*3/uL (4.8-10.8)
[2023-07-17 17:16] LABS: COVID-19 Test Negative (Negative); IDNOW Serial# 152EDE1D
[2023-07-17 17:17] LABS: IDNOW Serial# 9DB6401D; Influenza A Negative (Negative); Influenza B2 Negative (Negative)
[2023-07-17 17:19] LABS: Alanine Aminotransferase 15 U/L (0-31); Albumin Level 3.9 g/dL (3.5-5.0); Alkaline Phosphatase 77 U/L (39-117); Anion Gap 10 (12-20); Aspartate Amino Transferase 14 U/L (5-31); Bilirubin Direct < 0.2 mg/dL (0.0-0.5); Bilirubin Total 0.2 mg/dL (0.0-1.0); Blood Urea Nitrogen 14 mg/dL (9-16); Calcium 8.7 mg/dL (8.4-10.2); Carbon Dioxide 28 mmol/L (22-29); Chloride 106 mmol/L (96-108); Creatinine Clr Calc Pharmacy 56.2; Estimated Glomerular Filt Rate 57; Glucose Random 129 mg/dL (60-115); Sodium 140 mmol/L (135-145); Total Protein 6.5 g/dL (6.5-8.0)
[2023-07-17 21:21] VITALS: BP 133/71; PULSE 97; RESP 14; TEMP 36.6; O2SAT 97
[2023-07-17 22:07] LABS: Appearance Urine Clear; Color Urine Yellow; Glucose Urine UA 250 mg/dL (Negative); Leukocyte Esterase Urine Negative (Negative); Nitrite Urine Negative (Negative); PH 6.5 (5.0-9.0); Urine Blood Negative (Negative); Urine Ketones Negative (Negative); Urine Protein Negative (Neg-Trace)
[2023-07-18] MEDS: ondansetron HCL 4 MG/2 ML VIAL IVPUSH (00:39)
[2023-07-18] MEDS: Morphine Sulfate 4 MG/ML CARTRIDGE IVPUSH (00:40)
[2023-07-18] MEDS: 0.9 % Sodium Chloride 1,000 ML 999 ML IV (00:40)
--- NOTE | 2023-07-18 00:48 | PC.NURSE ---
this rn assumed care of pt from waiting room @ [id number]. iv placed in L AC. pt medicated according to mar
[2023-07-18 01:00] VITALS: O2SAT 96
--- NOTE | 2023-07-18 01:54 | PC.NURSE ---
pt reports to this rn continued pain after pain medication administration. this rn made dr arango aware of pt statements. awaiting new orders
[2023-07-18] MEDS: Ketorolac Tromethamine 30 MG/ML VIAL IVPUSH (02:01)
[2023-07-18 02:05] VITALS: BP 116/67; PULSE 68; RESP 18; O2SAT 97
--- NOTE | 2023-07-18 02:32 | PC.NURSE ---
pt ambulatory at discharge iv removed at discharge. pt calm and cooperative. cms intact after placement of thumb spica splint on R thumb. pt provided with discharge packet pt verbalized understanding of discharge plan
== END 2023-07-18 02:34 | disposition home or self-care (01) ==
PROVIDERS: Physician Assistant Medical; Emergency Provider Internal Medicine; PCP Student in an Organized Health Care Education/Training Program
DX: M54.50 Low back pain, unspecified (principal); M65.241 Calcific tendinitis, right hand; R10.9 Unspecified abdominal pain; R11.2 Nausea with vomiting, unspecified; M79.641 Pain in right hand; Z79.899 Other long term (current) drug therapy; Z11.52 Encounter for screening for COVID-19; Z87.891 Personal history of nicotine dependence
CPT/HCPCS: 36415; 74176; 80048; 80076; 81003; 85025; 87502; 87635; 96361; 96374; 96375; 99285; J1885; J2270; J2405

== ENCOUNTER 2023-07-26 09:03 | Outpatient (REF) | payer MEDICAID, SELFPAY ==
--- NOTE | ~2023-07-26 | US_ITS ---
EXAMINATION: US ABDOMEN COMPLETE CLINICAL INFORMATION: Unspecified abdominal pain. COMPARISON: CT abdomen and pelvis dated 09/16/2023. Ultrasound abdomen limited 07/01/2022 and 11/09/2019. X-ray KUB 11/20/2019. TECHNIQUE: Real-time imaging of the abdominal viscera. FINDINGS: PANCREAS: Limited visualization. ABDOMINAL AORTA: The proximal, mid, and distal segments are normal in caliber. INFERIOR VENA CAVA: Visualized portions are normal. LIVER: The liver is normal in size. The liver contour is normal. Parenchymal echogenicity is normal. No focal hepatic lesion. There is no intrahepatic biliary duct dilatation seen. GALLBLADDER: Surgically absent. COMMON BILE DUCT: Normal in caliber measuring 0.7 cm in diameter. RIGHT KIDNEY: No hydronephrosis. No renal calculi or focal parenchymal lesions. The kidney measures 11.0 cm in maximum dimension. LEFT KIDNEY: No hydronephrosis. No renal calculi or focal parenchymal lesions. The kidney measures 10.7 cm in maximum dimension. SPLEEN: The spleen measures 9.0 cm in maximum dimension. FREE FLUID: None. US/US abdomen complete IMPRESSION: Unremarkable abdominal ultrasound.
== END 2023-07-26 09:04 | disposition home or self-care (01) ==
LOC: HO.US 09:03
PROVIDERS: PCP Student in an Organized Health Care Education/Training Program; Visit Provider Physician Assistant
DX: R10.9 Unspecified abdominal pain (principal); R11.2 Nausea with vomiting, unspecified
CPT/HCPCS: 76700

== ENCOUNTER 2023-07-28 13:22 | Outpatient (AMB) | payer MEDICAID, SELFPAY ==
--- NOTE | 2023-07-28 13:23 | A.OFFVIS_ITS ---
Intake Vital Signs 07/28/23 13:24 Height 5 ft 3 in Weight 155 lb BMI 27.5 Intake Visit Reasons: superficial thrombophebitis Intake Note: ED referral for superficial thrombophlebitis right LE s/p US 05/22/23. Pt states bilateral LE swelling and discoloration. Started about 4 months ago, works on her feet. Pt states she has a history of Left GSV ablation in 2008? Hx of DVT in the . Accompanied by: Self / Same As Patient Allergies Penicillins Allergy (Intermediate, Verified 07/28/23 13:32) HIVES sulfamethoxazole [From BACTRIM] Allergy (Intermediate, Verified 07/28/23 13:32) BLISTERS- DELGADO - NERVE ENDINGS IN HAND/ERYTHEMA MULTIFORM trimethoprim [From BACTRIM] Allergy (Intermediate, Verified 07/28/23 13:32) BLISTERS- DELGADO - NERVE ENDINGS IN HAND/ERYTHEMA MULTIFORM latex [Latex] Allergy (Mild, Verified 07/28/23 13:32) RASH theophylline Adverse Reaction (Intermediate, Verified 07/28/23 13:32) TACHYCARDIA TEGADERM Allergy (Intermediate, Uncoded 07/28/23 13:32) SKIN TEARS From COMPAZINE Adverse Reaction (Severe, Uncoded 07/28/23 13:32) SEIZURES HPI superficial thrombophebitis HPI Details Pleasant 62-year-old female patient presents for painful varicose veins. Complaints include pain over varicosities, swelling of lower extremities, cramping, fatigue, and heaviness of the lower extremities. It has been affecting there daily activities including walk. It is noted more so in right leg. She did have an episode of phlebitis which brought her to the emergency room on 06/01/2023. At that time she was found to have superficial thrombophlebitis but no evidence of a DVT. Patient reports left lower extremity ablation performed at [facility] nearly 8 - 9 years ago. Patient reports a history of a DVT back in 1984 behind the left knee Patient denies any history of phlebitis. Trial of compression includes - [id number] They now present for vascular evaluation regarding their varicose veins. [facility] Medical History Abdominal pain Infection of skin due to methicillin resistant Staphylococcus aureus (MRSA) Numbness of right hand COVID-19 Sebaceous cyst Abscess Cubital tunnel syndrome on left Contusion of right ankle Numbness and tingling in left hand Left hand pain Stiffness of left hand joint Emesis Overweight (BMI 25.0-29.9) Borderline diabetes Dyslipidemia Non-toxic multinodular goiter Diabetes type 2, controlled History of restless legs syndrome Anxiety Depression High cholesterol Asthma DVT (deep venous thrombosis) GERD (gastroesophageal reflux disease) Anastomotic ulcer Surgical History H/O removal of cyst (02/03/23) History of removal of cyst (07/28/22) Hx of cholecystectomy History of surgery History of surgery on left wrist Hx of elbow surgery History of excision of epidermal inclusion cyst (03/23/22) Hx of excision of epidermal inclusion cyst (12/25/21) History of excision of mass (10/26/21) S/P trigger finger release History of tooth extraction Hx of hand surgery Hx of esophagogastroduodenoscopy S/P gastric bypass History of hysterectomy Family History Mother Diabetes mellitus CHF (congestive heart failure) Kidney failure Cervical cancer Brother No problems noted. Brother No problems noted. 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 Review of Systems Const Reports as per HPI ENT Reports no additional complaints Card Denies chest pain, Denies chest pain at rest and Denies chest pain with activity Resp Denies chest congestion and Denies cough GI Reports no additional complaints Musc Details: pain over varicosities, aching of lower extremities, swelling, cramping, heaviness and tiredness, itching Denies abnormal gait Skin/Breast Reports pruritus and Denies wounds Neuro Reports no additional complaints and Denies abnormal gait Psych Denies no additional complaints Physical Exam Vital Signs: BMI result Body Mass Index 27.5 Const General: cooperative, healthy appearing and comfortable Orientation/consciousness: oriented to person, oriented to place and oriented to time Neck Carotids: no bruits Chest Chest palpation & inspection: normal inspection of the chest and normal palpation of entire chest wall Resp Effort & Inspection: normal respiratory effort and able to speak in complete sentences Cardio Rate: regular rate Heart sounds: S1 normal heart sound present and S2 normal heart sound present Peripheral pulses: Peripheral pulses 2+ throughout GI Inspection: Yes normal to inspection Skin Other: +2 edema, CEAP Classification C4 - skin color changes Ep - Etiology Primary As - superficial veins P - reflux General skin exam: dry skin Neuro General: oriented to person, oriented to place and oriented to time Extrem Right lower extremity: full ROM, normal capillary refill and edema Left lower extremity: full ROM, normal capillary refill and edema Psych Mental Status: mental status grossly normal Assessment & Plan Assessment & Plan (1) Varicose veins of right lower extremity with inflammation: Code(s): I83.11 - Varicose veins of right lower extremity with inflammation Plan: Unclear etiology of lower extremity swelling. She does have some underlying reflux just by the mere fact that she had a prior history of DVT and some superficial thrombophlebitis. I have taken the liberty of ordering venous insufficiency testing to better evaluate that. In addition we did discuss routine conservative measures including compression elevation and exercise. She will follow up with us after testing. Thank you for allowing us to assist in her care. If there are any questions or concerns please do not hesitate to contact us Coding Level of Care Code Est Pt Level 4 (85932) Diagnoses Varicose veins of right lower extremity with inflammation I83.11
[2023-07-28 13:24] VITALS: BMI 27.5
== END 2023-07-28 13:52 | disposition home or self-care (01) ==
PROVIDERS: PCP Student in an Organized Health Care Education/Training Program; Visit Provider Surgery Vascular Surgery
DX: I83.11 Varicose veins of right lower extremity with inflammation (principal); I80.00 Phlebitis and thrombophlebitis of superficial vessels of unspecified lower extremity
CPT/HCPCS: 99214

== ENCOUNTER → 2023-07-28 13:22 | Outpatient (BNVA) | payer MEDICAID, SELFPAY | PROVIDERS: PCP Student in an Organized Health Care Education/Training Program; Visit Provider Surgery Vascular Surgery | DX: I83.11 Varicose veins of right lower extremity with inflammation (principal) | CPT/HCPCS: 99212 ==

== ENCOUNTER 2023-08-03 10:05 | Outpatient (REF) | payer MEDICAID, SELFPAY ==
--- NOTE | ~2023-08-03 | XR_ITS ---
EXAMINATION: XR HAND, RIGHT CLINICAL INFORMATION: Abdominal pain. COMPARISON: Radiographs dated 01/23/2017. TECHNIQUE: PA, lateral, and oblique views of the right hand. FINDINGS: Bony alignment and mineralization are normal. No fracture or dislocation is seen. A 2 mm exostosis arises from the dorsal margin of the base of the distal phalanx of the thumb. This is unchanged from 01/23/2017. There is no abnormal bone erosion. No focal soft tissue swelling, gas or foreign body is seen. XR/XR hand RT min 3V IMPRESSION: A stable tiny exostosis (Turret exostosis) arises from the dorsal margin of the base of the distal phalanx of the right thumb. The examination is otherwise unremarkable.
== END 2023-08-03 10:06 | disposition home or self-care (01) ==
LOC: HO.HOSX 10:05
PROVIDERS: Visit Provider Orthopaedic Surgery
DX: M65.311 Trigger thumb, right thumb (principal)
CPT/HCPCS: 73130; 99212

== ENCOUNTER 2023-08-03 12:45 | Outpatient (AMB) | payer MEDICAID, SELFPAY ==
--- NOTE | 2023-08-03 13:23 | MHC.OFFVIS ---
Intake Vital Signs 08/03/23 13:31 Height 5 ft 3 in Weight 155 lb BMI 27.5 Intake Visit Reasons: N/prob Right thumb pain Intake Note: Nayely 62 yr old female who is right hand dominant presents today for a new problem visit for her Right thumb pain. Patient reports her finger is still and is locking for the last 4 months. Also hears a clicking/popping noise and cause severe pain.Hx of right CTR from 10/14/22, left trigger release MF and RF in 2020. Allergies Penicillins Allergy (Intermediate, Verified 08/03/23 13:30) HIVES sulfamethoxazole [From BACTRIM] Allergy (Intermediate, Verified 08/03/23 13:30) BLISTERS- DELGADO - NERVE ENDINGS IN HAND/ERYTHEMA MULTIFORM trimethoprim [From BACTRIM] Allergy (Intermediate, Verified 08/03/23 13:30) BLISTERS- DELGADO - NERVE ENDINGS IN HAND/ERYTHEMA MULTIFORM latex [Latex] Allergy (Mild, Verified 08/03/23 13:30) RASH theophylline Adverse Reaction (Intermediate, Verified 08/03/23 13:30) TACHYCARDIA TEGADERM Allergy (Intermediate, Uncoded 08/03/23 13:30) SKIN TEARS From COMPAZINE Adverse Reaction (Severe, Uncoded 08/03/23 13:30) SEIZURES HPI N/prob Right thumb pain HPI Details Nayely is a 62 year old right hand dominant Diabetic woman who presents with a new complaint of right thumb pain & locking. She says her thumb has been locking for ~4 months now painfully, along with clicking & popping . She reports also feeling a zapping sensation in her thumb when her finger clicks. She is seen today wearing a thumb splint She has a history of several bilateral hand surgeries in the past. She has a hx of left middle & ring finger trigger release on 01/13/21, which went well. Unfortunately, it sounds like her daughter's is very ill and will likely pass away the near future. He has been on dialysis and had cardiac issues following multiple COVID infections. [facility] Medical History Abdominal pain Infection of skin due to methicillin resistant Staphylococcus aureus (MRSA) Numbness of right hand COVID-19 Sebaceous cyst Abscess Cubital tunnel syndrome on left Contusion of right ankle Numbness and tingling in left hand Left hand pain Stiffness of left hand joint Emesis Overweight (BMI 25.0-29.9) Borderline diabetes Dyslipidemia Non-toxic multinodular goiter Diabetes type 2, controlled History of restless legs syndrome Anxiety Depression High cholesterol Asthma DVT (deep venous thrombosis) GERD (gastroesophageal reflux disease) Anastomotic ulcer Surgical History H/O removal of cyst (02/03/23) History of removal of cyst (07/28/22) Hx of cholecystectomy History of surgery History of surgery on left wrist Hx of elbow surgery History of excision of epidermal inclusion cyst (03/23/22) Hx of excision of epidermal inclusion cyst (12/25/21) History of excision of mass (10/26/21) S/P trigger finger release History of tooth extraction Hx of hand surgery Hx of esophagogastroduodenoscopy S/P gastric bypass History of hysterectomy Family History Mother Diabetes mellitus CHF (congestive heart failure) Kidney failure Cervical cancer Brother No problems noted. Brother No problems noted. 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 Review of Systems Const All systems reviewed & are unremarkable except as noted in HPI and below Physical Exam Vital Signs: BMI result Body Mass Index 27.5 Const General: cooperative, healthy appearing and no acute distress Orientation/consciousness: patient oriented x3 HEENT Head: Yes normocephalic and Yes atraumatic Eyes EOM: EOMs intact bilaterally Resp Effort & Inspection: normal respiratory effort and able to speak in complete sentences Cardio Jugular venous distension: no JVD Skin General skin exam: turgor normal Rashes: no rashes Neuro General: patient oriented x3 Extrem Other: Evaluation of Right Upper Extremity: The patient is alert, oriented, and in no acute distress Neuro: Median, Ulnar, Radial nerves motor and sensory intact and sensation is normal to the tips of all digits Vascular: Cap refill brisk ROM: She can make a fist and extend all her digits Visible and palpable locking and catching of the thumb Tender over the a1 palmira of the thumb Skin: No lacerations or abrasions. General: No Ecchymosis. No Erythema or evidence of infection. Radiographs: 3 views of the right hand were taken and viewed by me today in clinic. They show no fractures or dislocations. [ ]. Psych Appearance: grossly normal Affect: normal affect Attitude: cooperative Assessment & Plan Assessment & Plan (1) Trigger thumb, right thumb: Code(s): M65.311 - Trigger thumb, right thumb (2) Diabetes type 2, controlled: Code(s): E11.9 - Type 2 diabetes mellitus without complications Plan Assessment & Plan: 1. Right trigger thumb I educated her about this condition I discussed operative and non-operative treatment options The patient would like to proceed with surgery The risks and benefits of operative treatment were discussed with the patient and the patient wishes to proceed with surgery. These risks include, but are not limited to risk of damage to blood vessels, nerves, tendons, infection, recurrence, incomplete relief of preoperative symptoms, persistent pain, possible need for further surgery and the risks associated with regional blocks and anesthesia. The plan is to take the patient to the operating room sometime in the next few weeks for the following procedures: 1. Right trigger thumb release, under local All of the preoperative paperwork including the consent was reviewed today. All the patient's questions were answered. The patient understands that they will be contacted by our revenue integrity analyst soon to schedule this procedure She denies blood thinners, asthma, heart, lung, kidney issues She is a Diabetic and says this is well-controlled. Please see my note from 10/27/2022 for a list of additional diagnoses and previous surgeries as needed. Scribed for Jessy Bautista MD by Alcides Felix, er medical technician, on [ ] at [ ], EST. Orders: Orders XR hand RT min 3V 06/07/23 M79.641 - Pain in right hand XR hand RT min 3V Today M79.641 - Pain in right hand Coding Level of Care Code Est Pt Level 4 (15096) Diagnoses Trigger thumb, right thumb M65.311 Diabetes type 2, controlled E11.9
[2023-08-03 13:31] VITALS: BMI 27.5
== END 2023-08-03 14:03 | disposition home or self-care (01) ==
PROVIDERS: PCP Student in an Organized Health Care Education/Training Program; Visit Provider Orthopaedic Surgery
DX: M65.311 Trigger thumb, right thumb (principal); E11.9 Type 2 diabetes mellitus without complications
CPT/HCPCS: 99214

== ENCOUNTER 2023-08-10 08:07 | Outpatient (REF) | payer MEDICAID, SELFPAY ==
--- NOTE | ~2023-08-10 | US_ITS ---
EXAMINATION: US VENOUS REFLUX/INSUFFICIENCY CLINICAL INFORMATION: Right lower extremity varicosities; status-post left greater saphenous vein ablation in 2008. COMPARISON: Prior venous ultrasound examinations, most recently 06/08/2023. TECHNIQUE: Bilateral lower extremity and venous insufficiency ultrasound was performed with velocity measurements. Color flow Doppler imaging was performed. FINDINGS: RIGHT SIDE: GREATER SAPHENOUS VEIN: The right saphenofemoral junction diameter is 0.6 cm. There is no reflux. The right proximal thigh diameter is 0.4 cm. There is no reflux. The right mid thigh diameter is 0.3 cm. There is no reflux. The right above-knee diameter is 0.3 cm. There is no reflux. The right at-knee diameter is 0.3 cm. There is no reflux. The right below-knee diameter is 0.3 cm. There is no reflux. The right mid calf diameter is 0.3 cm. There is no reflux. The right ankle diameter is 0.3 cm. There is no reflux. MEDIAL ACCESSORY GREATER SAPHENOUS VEIN: The left saphenofemoral junction diameter is 0.3 cm. There is no reflux The left mid thigh diameter is 0.2 cm. There is no reflux. LESSER SAPHENOUS VEIN: The right saphenopopliteal junction diameter is 0.4 cm. There is no reflux. The right mid calf diameter is 0.2 cm. There is no reflux. The right distal calf diameter is 0.2 cm. There is no reflux. UNDER GROUND MINER: 7 cm from the left calcaneus, diameter 0.2 cm. There is no reflux. LEFT SIDE: GREATER SAPHENOUS VEIN: The left saphenofemoral junction diameter is 0.6 cm. There is no reflux. The left proximal thigh diameter is 0.2 cm. There is no reflux. The left mid thigh segment appears ablated. The left above-knee diameter is 0.2 cm. There is no reflux. The left at-knee diameter is 0.2 cm. There is no reflux. The left below-knee diameter is 0.2 cm. There is no reflux. The left mid calf diameter is 0.2 cm. There is no reflux. The left ankle diameter is 0.1 cm. There is no reflux. LESSER SAPHENOUS VEIN: The left saphenopopliteal junction diameter is 0.2 cm. There is no reflux. The left mid calf diameter is 0.2 cm. There is no reflux. The left distal calf diameter is 0.2 cm. There is no reflux. UNDER GROUND MINER: 15 cm from the left calcaneus, diameter 0.3 cm. There is no reflux. BILATERAL DEEP VENOUS SYSTEMS: There is no deep venous thrombosis or reflux on the right. There is no deep venous thrombosis or reflux on the left. US/US venous insuf bilat IMPRESSION: No hemodynamically significant reflux is seen of the bilateral greater or lesser saphenous veins. There are postablation changes of the mid thigh segment of the left greater saphenous vein.
== END 2023-08-10 08:08 | disposition home or self-care (01) ==
LOC: HO.US 08:07
PROVIDERS: Visit Provider Surgery Vascular Surgery
DX: I83.11 Varicose veins of right lower extremity with inflammation (principal)
CPT/HCPCS: 93970

== ENCOUNTER 2023-08-11 23:01 | Emergency (ER) | payer MEDICAID, SELFPAY ==
[2023-08-11 23:04] VITALS: BP 130/75; PULSE 100; RESP 18; TEMP 36.3; O2SAT 96; BMI 27.3
[2023-08-12] MEDS: Morphine Sulfate 4 MG/ML CARTRIDGE IM (00:30)
[2023-08-12] MEDS: Lidocaine HCl 1%/Epi 1:100,000 10 ML VIAL SUBCUT (00:30)
--- NOTE | 2023-08-12 00:44 | ED_ITS ---
HPI - General Adult General Chief complaint: Skin/Abscess/Foreign Body Stated complaint: vaginal cysts Time Seen by Provider: 08/11/23 23:49 Source: patient, RN notes reviewed and old records reviewed Mode of arrival: ambulatory Limitations: no limitations History of Present Illness HPI narrative: 62-year-old female with past medical history significant for hidradenitis suppurativa presents for evaluation of abscess. Patient reports an abscess to the left groin for the last few days She generally follows with Dr. Zambrano regarding this. She denies any fevers or chills but reports the pain is 10/10 in keeping her up at night Related Data Home Medications Medication Instructions Recorded Confirmed hydrochlorothiazide 12.5 mg capsule 12.5 mg PO DAILY 05/09/20 06/22/23 hydroxyzine HCl 25 mg tablet 50 mg PO BEDTIME 06/04/20 06/22/23 pramipexole 0.25 mg tablet 1 tab DAILY 10/20/21 06/22/23 sertraline 100 mg tablet 1 tab PO BEDTIME 10/20/21 06/22/23 tizanidine 4 mg tablet 1 tab PO BEDTIME 10/20/21 06/22/23 ferrous sulfate 325 mg (65 mg 325 mg PO DAILY 06/01/22 06/22/23 iron) tablet,delayed release cyanocobalamin (vitamin B-12) 1,000 mcg PO QAM 06/03/22 06/22/23 1,000 mcg tablet metformin 500 mg tablet,extended 500 mg PO BID 06/03/22 06/22/23 release 24 hr sucralfate 100 mg/mL oral 10 ml PO TID 12/21/22 06/22/23 suspension Previous Rx's Medication Instructions Recorded cholecalciferol (vitamin D3) 50 50 mcg PO DAILY #30 caps 12/15/20 mcg (2,000 unit) capsule acarbose 25 mg tablet 25 mg PO TID 30 days #90 tabs 12/31/20 fluticasone propionate 50 2 spray intranasal DAILY #16 grams 06/21/21 mcg/actuation nasal spray,suspension (Flonase Allergy Relief) blood-glucose meter (FreeStyle #1 ea 08/21/21 Lite Meter kit) blood sugar diagnostic (FreeStyle #150 strips 03/30/22 Lite Strips) thiamine HCl (vitamin B1) 100 mg 100 mg PO DAILY #90 tabs 06/07/22 tablet lidocaine 5 % topical patch 1 patch topical DAILY PRN pain #30 08/13/22 (Lidoderm) ea hydrocodone 5 mg-acetaminophen 325 1 tab PO Q4-6H PRN pain #5 tabs 10/14/22 mg tablet hydrocodone 5 mg-acetaminophen 325 1 tab PO Q6H PRN pain #10 tabs 10/14/22 mg tablet oxycodone 5 mg tablet 5 mg PO BID PRN pain #5 tabs 10/31/22 clindamycin phosphate 1 % topical 1 appl topical BID #30 grams 11/07/22 gel lidocaine 5 % topical patch 1 patch topical DAILY #15 ea 11/10/22 (Lidoderm) cyclobenzaprine 10 mg tablet 10 mg PO Q8H #20 tabs 01/07/23 oxycodone 5 mg tablet 5 mg PO Q6H PRN pain #20 tabs 01/07/23 ondansetron 4 mg disintegrating 4 mg PO Q6-8H PRN nausea and 01/25/23 tablet vomiting #10 tabs tramadol 50 mg tablet 50 mg PO Q6H PRN pain #20 tabs 01/25/23 oxycodone 5 mg tablet 5 mg PO Q6H PRN pain (scale score 02/03/23 7-10) #10 tabs meclizine 25 mg tablet 25 mg PO TID PRN dizziness #20 tabs 02/11/23 prednisone 20 mg tablet 40 mg (2 x 20 mg) PO DAILY 5 days 02/14/23 #10 tabs tramadol 50 mg tablet 50 mg PO TID PRN pain 3 days #9 02/14/23 tabs oxycodone 5 mg tablet 5 mg PO Q8H PRN pain #14 tabs 03/09/23 tramadol 50 mg tablet 50 mg PO TID PRN severe pain 05/10/23 (scale score 7-10) #12 tabs pantoprazole 40 mg tablet,delayed 40 mg PO Q12H #60 tabs 06/07/23 release albuterol sulfate 1.25 mg/3 mL 1.25 mg (3 mL) inhalation QID PRN 06/11/23 solution for nebulization shortness of breath or wheezing #90 mL bisacodyl 5 mg tablet,delayed 20 mg (4 x 5 mg) PO ONCE 06/22/23 release (Dulcolax (bisacodyl)) colonoscopy prep 1 day #4 tabs polyethylene glycol 3350 17 238 g PO ONCE PRN laxative effect 06/22/23 gram/dose oral powder (Miralax) 1 day #238 grams diclofenac sodium 1 % topical gel 2 g topical BID PRN pain (scale 07/18/23 (Aleve (diclofenac)) score 4-6) #100 grams clindamycin HCl 300 mg capsule 300 mg PO TID #21 caps 08/12/23 oxycodone 5 mg tablet 5 mg PO TID PRN severe pain (scale 08/12/23 score 7-10) #9 tabs Allergies Allergy/AdvReac Type Severity Reaction Status Date / Time Penicillins Allergy Intermediate HIVES Verified 08/03/23 13:30 sulfamethoxazole Allergy Intermediate BLISTERS- Verified 08/03/23 13:30 [From BACTRIM] DELGADO - NERVE ENDINGS IN HAND/ERYTHEMA MULTIFORM trimethoprim [From BACTRIM] Allergy Intermediate BLISTERS- Verified 08/03/23 13:30 DELGADO - NERVE ENDINGS IN HAND/ERYTHEMA MULTIFORM latex [Latex] Allergy Mild RASH Verified 08/03/23 13:30 theophylline AdvReac Intermediate TACHYCARDIA Verified 08/03/23 13:30 TEGADERM Allergy Intermediate SKIN TEARS Uncoded 08/03/23 13:30 From COMPAZINE AdvReac Severe SEIZURES Uncoded 08/03/23 13:30 Review of Systems Constitutional: Constitutional: Denies chills and Denies fever(s) Integumentary/Breasts: Skin/Breast: Reports erythema PMFSH Past Medical History Medical History Abdominal pain Infection of skin due to methicillin resistant Staphylococcus aureus (MRSA) Numbness of right hand COVID-19 Sebaceous cyst Abscess Cubital tunnel syndrome on left Contusion of right ankle Numbness and tingling in left hand Left hand pain Stiffness of left hand joint Emesis Overweight (BMI 25.0-29.9) Borderline diabetes Dyslipidemia Non-toxic multinodular goiter Diabetes type 2, controlled History of restless legs syndrome Anxiety Depression High cholesterol Asthma DVT (deep venous thrombosis) GERD (gastroesophageal reflux disease) Anastomotic ulcer Surgical History H/O removal of cyst (02/03/23) History of removal of cyst (07/28/22) Hx of cholecystectomy History of surgery History of surgery on left wrist Hx of elbow surgery History of excision of epidermal inclusion cyst (03/23/22) Hx of excision of epidermal inclusion cyst (12/25/21) History of excision of mass (10/26/21) S/P trigger finger release History of tooth extraction Hx of hand surgery Hx of esophagogastroduodenoscopy S/P gastric bypass History of hysterectomy Family History Family History Mother Diabetes mellitus CHF (congestive heart failure) Kidney failure Cervical cancer Brother No problems noted. Brother No problems noted. 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 Physical Exam ED Vital Signs: Vital Signs - 24 hr 08/11/23 23:04 Temperature 97.3 F Pulse Rate 100 Respiratory Rate 18 Blood Pressure 130/75 Pulse Oximetry 96 Oxygen Delivery Method Room Air BMI result Body Mass Index 27.3 Const General: healthy appearing, comfortable, no acute distress, alert and awake Nutritional Appearance: well nourished Orientation/consciousness: patient oriented x3 HENMT Head: Yes normocephalic and Yes atraumatic Eyes Eyelids: Yes eyelids normal Conjunctivae: conjunctivae normal Sclerae: sclerae normal Corneas: corneas normal Pupils: Equal, round and reactive pupils present EOM: EOMs intact bilaterally Neck Neck: Yes full ROM Resp Effort & Inspection: normal respiratory effort, able to speak in complete sentences and not labored Other: Patient has about a 1 x 2 cm area of erythema with induration to the left groin lateral to the labia majora. There is no active drainage or open wounds. This area is exquisitely tender to palpation Skin General skin exam: elasticity normal Neuro General: patient oriented x3 Cranial nerves: Yes Equal, round and reactive pupils present and Yes Bilaterally intact EOM present Cognition (Neuro): normal cognition Extrem Other: Moving all extremities well without any obvious deformities Medications Administered Discontinued Medications Generic Name Dose Route Start Last Admin Trade Name Richardq PRN Reason Stop Dose Admin Lidocaine/Epinephrine 10 ml 08/12/23 00:15 08/12/23 00:30 Lidocaine Hcl 1%/Epi 1:100,000 10 Ml Vial SUBCUT 08/12/23 00:16 10 ml ONCE ONE Administration Morphine Sulfate 4 mg 08/12/23 00:16 08/12/23 00:30 Morphine Sulfate 4 Mg/Ml Cartridge IM 08/12/23 00:17 4 mg ONCE ONE Administration Protocol Procedures Abscess I/D Site: other (Left groin) Side (if applicable): left Local Anesthetic: lidocaine 1% and with epi Amount of anesthesia used (mL): 4 Technique: incised with blade Amount of fluid expressed (mL): 2 Sent for culture/gram staining?: No Irrigation: Yes Packing used?: none Complications: pain Medical Decision Making Medical Decision Making MDM Narrative: 62-year-old female presents for evaluation of an abscess to the left groin. It is quite small on exam but does appear amenable to incision and drainage. Discussed with the patient reports that she usually has this done in the OR with Dr. Zambrano. I offered to contact him to see if he will be willing to perform incision and drainage in the OR and the patient declines requesting to have it drained now. Will give her morphine 4 mg IM and then local anesthetic. Differential Diagnosis Differential Diagnoses: The differential diagnosis associated with the presentation includes Abscess Hidradenitis Sebaceous cyst Cellulitis Discharge Plan Discharge Clinical Impression: Abscess of groin, left Patient Disposition: Home, Self-Care Instructions: Incision and Drainage (ED) Additional Instructions: A clindamycin 3 times daily for 7 days. Apply warm compresses as directed Follow-up with Dr. Zambrano Use Motrin/Tylenol for pain. You may use oxycodone for severe or breakthrough pain This may make you sleepy, did not drink alcohol or drive after taking Prescriptions: New oxycodone 5 mg tablet 5 mg PO TID PRN (Reason: severe pain (scale score 7-10)) Qty: 9 0RF Rx Instructions: Partial Fill upon patient request. clindamycin HCl 300 mg capsule 300 mg PO TID Qty: 21 0RF No Action cholecalciferol (vitamin D3) 50 mcg (2,000 unit) capsule 50 mcg PO DAILY Qty: 30 11RF (DME) FreeStyle Lite Strips Strip See Rx Instructions .ROUTE .COMPLEX Qty: 150 6RF Dose Instruction: USE TO TEST BLOOD SUGAR TWICE DAILY Rx Instructions: USE TO TEST BLOOD SUGAR TWICE DAILY thiamine HCl (vitamin B1) 100 mg tablet 100 mg PO DAILY Qty: 90 3RF hydrocodone-acetaminophen 5-325 mg tablet 1 tab PO Q6H PRN (Reason: pain) Qty: 10 0RF Rx Instructions: Partial Fill upon patient request. pantoprazole 40 mg tablet,delayed release (DR/EC) 40 mg PO Q12H Qty: 60 6RF hydroxyzine HCl 25 mg tablet 50 mg PO BEDTIME sertraline 100 mg tablet 1 tab PO BEDTIME pramipexole 0.25 mg tablet 1 tab DAILY tizanidine 4 mg tablet 1 tab PO BEDTIME lidocaine [Lidoderm] 5 % adhesive patch,medicated 1 patch topical DAILY MDD remove after 12 hours PRN (Reason: pain) Qty: 30 0RF Rx Instructions: leave on most painful area for up to 12 hrs fluticasone propionate [Flonase Allergy Relief] 50 mcg/actuation spray,suspension 2 spray intranasal DAILY Qty: 16 0RF Rx Instructions: administer into each nostril metformin 500 mg tablet extended release 24 hr 500 mg PO BID oxycodone 5 mg tablet 5 mg PO BID PRN (Reason: pain) Qty: 5 0RF Rx Instructions: Partial Fill upon patient request. oxycodone 5 mg tablet 5 mg PO Q6H PRN (Reason: pain (scale score 7-10)) Qty: 10 0RF Rx Instructions: Partial Fill upon patient request. prednisone 20 mg tablet 40 mg PO DAILY 5 Days Qty: 10 0RF tramadol 50 mg tablet 50 mg PO TID PRN (Reason: pain) 3 Days Qty: 9 0RF oxycodone 5 mg tablet 5 mg PO Q8H PRN (Reason: pain) Qty: 14 0RF Rx Instructions: Partial Fill upon patient request. tramadol 50 mg tablet 50 mg PO TID PRN (Reason: severe pain (scale score 7-10)) Qty: 12 0RF albuterol sulfate 1.25 mg/3 mL solution for nebulization 1.25 mg inhalation QID PRN (Reason: shortness of breath or wheezing) Qty: 90 0RF hydrocodone-acetaminophen 5-325 mg tablet 1 tab PO Q4-6H PRN (Reason: pain) Qty: 5 0RF Rx Instructions: Partial Fill upon patient request. clindamycin phosphate 1 % gel 1 appl topical BID Qty: 30 0RF lidocaine [Lidoderm] 5 % adhesive patch,medicated 1 patch topical DAILY Qty: 15 0RF Rx Instructions: leave on most painful area for up to 12 hrs cyclobenzaprine 10 mg tablet 10 mg PO Q8H Qty: 20 0RF oxycodone 5 mg tablet 5 mg PO Q6H PRN (Reason: pain) Qty: 20 0RF Rx Instructions: Partial Fill upon patient request. tramadol 50 mg tablet 50 mg PO Q6H PRN (Reason: pain) Qty: 20 0RF ondansetron 4 mg tablet,disintegrating 4 mg PO Q6-8H PRN (Reason: nausea and vomiting) Qty: 10 0RF meclizine 25 mg tablet 25 mg PO TID PRN (Reason: dizziness) Qty: 20 0RF diclofenac sodium [Aleve (diclofenac)] 1 % gel 2 g topical BID PRN (Reason: pain (scale score 4-6)) Qty: 100 0RF Rx Instructions: apply to single elbow, wrist or hand; for hand includes palm/fingers/back of hand acarbose 25 mg tablet 25 mg PO TID 30 Days Qty: 90 4RF hydrochlorothiazide 12.5 mg capsule 12.5 mg PO DAILY ferrous sulfate 325 mg (65 mg iron) tablet,delayed release (DR/EC) 325 mg PO DAILY (DME) blood-glucose meter [FreeStyle Lite Meter] Kit See Rx Instructions .Route Qty: 1 0RF Rx Instructions: As directed test blood sugar two times a day cyanocobalamin (vitamin B-12) 1,000 mcg tablet 1,000 mcg PO QAM sucralfate 100 mg/mL suspension 10 ml PO TID Rx Instructions: swish in mouth and swallow; use after food/drink bisacodyl [Dulcolax (bisacodyl)] 5 mg tablet,delayed release (DR/EC) 20 mg PO ONCE 1 Days Qty: 4 0RF Rx Instructions: Day before procedure, prep day Take 4 tablets by mouth upon awakening followed by large glass of water polyethylene glycol 3350 [Miralax] 17 gram/dose powder 238 g PO ONCE PRN (Reason: laxative effect) 1 Days Qty: 238 0RF Rx Instructions: Take as directed by mouth the day before your procedure.
[2023-08-12] MEDS: Clindamycin HCL 300 MG CAPSULE PO (01:38)
== END 2023-08-12 01:41 | disposition home or self-care (01) ==
PROVIDERS: Emergency Provider Internal Medicine; PCP Student in an Organized Health Care Education/Training Program
DX: L02.214 Cutaneous abscess of groin (principal); Z79.899 Other long term (current) drug therapy; Z87.891 Personal history of nicotine dependence
CPT/HCPCS: 10060; 96372; 99282; 99284; J2270

== ENCOUNTER 2023-08-23 07:17 | Outpatient (AMB) | payer MEDICAID, SELFPAY ==
--- NOTE | 2023-08-23 07:42 | A.OFFVIS_ITS ---
Intake Vital Signs 08/23/23 07:44 Height 5 ft 3 in Weight 154 lb BMI 27.3 BP 109/61 Blood Pressure Location Lt brachial Position Sitting Pulse 76 Intake Visit Reasons: Follow up US results Intake Note: Patient follow up for US results. Patient cc: N/V, abdominal pain with cramping and between diarrhea and constipation. 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: No Accompanied by: Spouse Allergies Penicillins Allergy (Intermediate, Verified 08/23/23 07:42) HIVES sulfamethoxazole [From BACTRIM] Allergy (Intermediate, Verified 08/23/23 07:42) BLISTERS- DELGADO - NERVE ENDINGS IN HAND/ERYTHEMA MULTIFORM trimethoprim [From BACTRIM] Allergy (Intermediate, Verified 08/23/23 07:42) BLISTERS- DELGADO - NERVE ENDINGS IN HAND/ERYTHEMA MULTIFORM latex [Latex] Allergy (Mild, Verified 08/23/23 07:42) RASH theophylline Adverse Reaction (Intermediate, Verified 08/23/23 07:42) TACHYCARDIA TEGADERM Allergy (Intermediate, Uncoded 08/03/23 13:30) SKIN TEARS From COMPAZINE Adverse Reaction (Severe, Uncoded 08/03/23 13:30) SEIZURES Medication List - Last Reconciled 08/23/23 by Lucy Bradley PA-C acarbose 25 mg PO TID 30 days albuterol sulfate 1.25 mg (3 mL) inhalation QID PRN bisacodyl (Dulcolax (bisacodyl)) 20 mg (4 x 5 mg) PO ONCE 1 day blood sugar diagnostic (FreeStyle Lite Strips) USE TO TEST BLOOD SUGAR TWICE DAILY blood-glucose meter (FreeStyle Lite Meter kit) As directed test blood sugar two times a day cholecalciferol (vitamin D3) 50 mcg PO DAILY clindamycin HCl 300 mg PO TID clindamycin phosphate 1% 1 appl topical BID cyanocobalamin (vitamin B-12) 1,000 mcg PO QAM cyclobenzaprine 10 mg PO Q8H diclofenac sodium 1% (Aleve (diclofenac)) 2 grams topical BID PRN ferrous sulfate 325 mg PO DAILY fluticasone propionate 50 mcg/actuation (Flonase Allergy Relief) 2 sprays intranasal DAILY hydrochlorothiazide 12.5 mg PO DAILY hydroxyzine HCl 50 mg PO BEDTIME lidocaine 5% (Lidoderm) 1 patch topical DAILY PRN MDD remove after 12 hours lidocaine 5% (Lidoderm) 1 patch topical DAILY meclizine 25 mg PO TID PRN metformin ER 500 mg PO BID oxycodone 5 mg PO TID PRN pantoprazole 40 mg PO Q12H polyethylene glycol 3350 (Miralax) 238 grams PO ONCE PRN 1 day pramipexole 1 tab DAILY sertraline 1 tab PO BEDTIME thiamine HCl (vitamin B1) 100 mg PO DAILY tizanidine 1 tab PO BEDTIME HPI HPI Comments History of Present Illness Details A 62 y/o female with multiple GI complaints- F/U after abdominal U/S- already scheduled for EGD/ colonoscopy- She has some nausea/ vomits occ- Had a bout of constipation- had low abdominal discomfort- she had a bout of diarrhea- sx resolved Having surgery trigger finger- L, then carpal tunnel- R Appetite is ok- No fevers/ chills - PFSH Medical History Abdominal pain Infection of skin due to methicillin resistant Staphylococcus aureus (MRSA) Numbness of right hand COVID-19 Sebaceous cyst Abscess Cubital tunnel syndrome on left Contusion of right ankle Numbness and tingling in left hand Left hand pain Stiffness of left hand joint Emesis Overweight (BMI 25.0-29.9) Borderline diabetes Dyslipidemia Non-toxic multinodular goiter Diabetes type 2, controlled History of restless legs syndrome Anxiety Depression High cholesterol Asthma DVT (deep venous thrombosis) GERD (gastroesophageal reflux disease) Anastomotic ulcer Surgical History H/O removal of cyst (02/03/23) History of removal of cyst (07/28/22) Hx of cholecystectomy History of surgery History of surgery on left wrist Hx of elbow surgery History of excision of epidermal inclusion cyst (03/23/22) Hx of excision of epidermal inclusion cyst (12/25/21) History of excision of mass (10/26/21) S/P trigger finger release History of tooth extraction Hx of hand surgery Hx of esophagogastroduodenoscopy S/P gastric bypass History of hysterectomy Family History Mother Diabetes mellitus CHF (congestive heart failure) Kidney failure Cervical cancer Brother No problems noted. Brother No problems noted. 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 Review of Systems Const All systems reviewed & are unremarkable except as noted in HPI and below Card Denies chest pain and Denies dyspnea Resp Denies dyspnea GI Reports abdominal pain, Denies hematochezia, Reports heartburn, Denies nausea and Denies vomiting Musc Reports arthralgias Psych Reports anxiety, Reports depression, Denies visual hallucinations, Denies hallucinations, Denies homicidal ideation and Denies suicidal ideation Physical Exam Vital Signs: Last Vital Signs Pulse 76 08/23/23 07:44 BP 109/61 08/23/23 07:44 BMI result Body Mass Index 27.3 Const General: cooperative and healthy appearing Orientation/consciousness: patient oriented x3 Limitations: no limitations Eyes Sclerae: sclerae normal Resp Effort & Inspection: normal respiratory effort and able to speak in complete sentences Auscultation: clear to auscultation bilaterally, no rales, no rhonchi and no wheezes Cardio Rate: regular rate Rhythm: regular rhythm Heart sounds: S1 normal heart sound present and S2 normal heart sound present GI Palpation (GI): Soft to palpation, nontender and no guarding Auscultation: normal bowel sounds Skin General skin exam: no rashes or lesions noted Neuro General: patient oriented x3 Psych Mental Status: mental status grossly normal Speech and movement: Clear speech present Affect: Labile affect present Attitude: cooperative Thought process: Normal thought process present Thought content: Normal thought content present Results Reviewed Results Reviewed: 07/26/23 US/US abdomen complete IMPRESSION: Unremarkable abdominal ultrasound. Assessment & Plan Assessment & Plan (1) Abdominal pain: Comment: mostly resolved P/E unremarkable awaiting surgery- carpal tunnel- trigger finger Code(s): R10.9 - Unspecified abdominal pain Plan: monitor Plan proceed w/ EGD/ colon- move up if schedule allows Patient Instructions: proceed w/ EGD/ colon- move up if schedule allows Reviewed prep- Encouraged to call questions or concerns Reflux precautions reviewed Coding Level of Care Code Est Pt Level 3 (19333) Diagnoses Abdominal pain R10.9 Time Spent (min) 30
[2023-08-23 07:44] VITALS: BP 109/61; PULSE 76; BMI 27.3
== END 2023-08-23 08:23 | disposition home or self-care (01) ==
PROVIDERS: PCP Student in an Organized Health Care Education/Training Program; Visit Provider Physician Assistant
DX: R10.9 Unspecified abdominal pain (principal)
CPT/HCPCS: 99213

== ENCOUNTER → 2023-08-23 07:17 | Outpatient (BNVA) | payer MEDICAID, SELFPAY | PROVIDERS: PCP Student in an Organized Health Care Education/Training Program; Visit Provider Physician Assistant | DX: R10.9 Unspecified abdominal pain (principal) | CPT/HCPCS: 99212 ==

== ENCOUNTER 2023-08-25 06:45 | Day surgery (SDC) | payer MEDICAID, SELFPAY ==
--- NOTE | 2023-08-24 10:39 | HO.ANESPROP2 ---
Documented by User: Daily Aburto NP 08/24/23 10:41 HPI - Anesthesia Eval Consult details Narrative: 62yo F for Upper Endoscopy and Colonoscopy s/p EGD 12/2022 with MAC [facility] Active Problems Active Problems: All Active Problems (Updated 02/09/23 @ 11:11 by Shiela Robertson Carrie) Trigger thumb, right thumb (Acute) Varicose veins of right lower extremity with inflammation (Acute) Abdominal pain (Acute) Nausea and vomiting (Acute) Chronic diarrhea (Acute) Carpal tunnel syndrome of right wrist (Acute) Epidermal inclusion cyst (Acute) Trigger finger, left middle finger (Acute) Trigger finger, left ring finger (Acute) Hidradenitis suppurativa (Acute) Carpal tunnel syndrome of left wrist (Acute) Ganglion cyst of dorsum of left wrist (Acute) GERD (gastroesophageal reflux disease) (Acute) Asthma (Acute) Dyslipidemia (Acute) Non-toxic multinodular goiter (Acute) Diabetes type 2, controlled (Acute) Anastomotic ulcer (Acute) S/P gastric bypass (Acute) Past Medical History Medical History Abdominal pain Infection of skin due to methicillin resistant Staphylococcus aureus (MRSA) Numbness of right hand COVID-19 Sebaceous cyst Abscess Cubital tunnel syndrome on left Contusion of right ankle Numbness and tingling in left hand Left hand pain Stiffness of left hand joint Emesis Overweight (BMI 25.0-29.9) Borderline diabetes Dyslipidemia Non-toxic multinodular goiter Diabetes type 2, controlled History of restless legs syndrome Anxiety Depression High cholesterol Asthma DVT (deep venous thrombosis) GERD (gastroesophageal reflux disease) Anastomotic ulcer Family History Family History Mother Diabetes mellitus CHF (congestive heart failure) Kidney failure Cervical cancer Brother No problems noted. Brother No problems noted. Family history of problems with anesthesia: No Surgical History Surgical History H/O removal of cyst (02/03/23) History of removal of cyst (07/28/22) Hx of cholecystectomy History of surgery History of surgery on left wrist Hx of elbow surgery History of excision of epidermal inclusion cyst (03/23/22) Hx of excision of epidermal inclusion cyst (12/25/21) History of excision of mass (10/26/21) S/P trigger finger release History of tooth extraction Hx of hand surgery Hx of esophagogastroduodenoscopy S/P gastric bypass History of hysterectomy History of Problems with Anesthesia: No Social History Social History Household Members: Spouse Are you a primary adult daycare coordinator to a significant other at home: No Do you presently have visiting nurse or other home services: No Alcohol intake: never Patient Tobacco Use Status: Former Tobacco user Quit Date: 6 months ago Tobacco use type: Cigarette Cigarette Packs Per Day: 0 Cigarettes Per Day: 1 Years Smoked: 30 Current occupational status: employed 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 Meds Allergies Allergy/AdvReac Type Severity Reaction Status Date / Time Penicillins Allergy Intermediate HIVES Verified 08/25/23 07:13 sulfamethoxazole Allergy Intermediate BLISTERS- Verified 08/25/23 07:13 [From BACTRIM] DELGADO - NERVE ENDINGS IN HAND/ERYTHEMA MULTIFORM trimethoprim [From BACTRIM] Allergy Intermediate BLISTERS- Verified 08/25/23 07:13 DELGADO - NERVE ENDINGS IN HAND/ERYTHEMA MULTIFORM latex [Latex] Allergy Mild RASH Verified 08/25/23 07:13 theophylline AdvReac Intermediate TACHYCARDIA Verified 08/25/23 07:13 TEGADERM Allergy Intermediate SKIN TEARS Uncoded 08/03/23 13:30 From COMPAZINE AdvReac Severe SEIZURES Uncoded 08/03/23 13:30 Home Medications Medication Instructions Recorded Confirmed Last Taken Type hydrochlorothiazide 12.5 mg capsule 12.5 mg PO DAILY 05/09/20 08/23/23 10/13/22 History hydroxyzine HCl 25 mg tablet 50 mg PO BEDTIME 06/04/20 08/23/23 10/13/22 History pramipexole 0.25 mg tablet 1 tab DAILY 10/20/21 08/23/23 10/13/22 History sertraline 100 mg tablet 1 tab PO BEDTIME 10/20/21 08/23/23 10/13/22 History tizanidine 4 mg tablet 1 tab PO BEDTIME 10/20/21 08/23/23 10/13/22 History ferrous sulfate 325 mg (65 mg 325 mg PO DAILY 06/01/22 08/23/23 10/11/22 History iron) tablet,delayed release cyanocobalamin (vitamin B-12) 1,000 mcg PO QAM 06/03/22 08/23/23 10/13/22 History 1,000 mcg tablet metformin 500 mg tablet,extended 500 mg PO BID 06/03/22 08/23/23 10/13/22 History release 24 hr Exam Pertinent Lab Results Pertinent Lab Results: Laboratory Tests 07/17/23 16:56 WBC 7.6 Hgb 13.2 Hct 39.2 Plt Count 193 Sodium 140 Potassium 4.0 Chloride 106 Carbon Dioxide 28 BUN 14 Creatinine 1.00 Assessment and Plan Assessment Anesthesia Assessment: Chart Reviewed Final Anesthetic Review Family History of Problems with Anesthesia: No History of Problems with Anesthesia: No Documented by User: Harsha Stovall MD 08/25/23 07:16 [facility] Past Medical History Medical History Abdominal pain Infection of skin due to methicillin resistant Staphylococcus aureus (MRSA) Numbness of right hand COVID-19 Sebaceous cyst Abscess Cubital tunnel syndrome on left Contusion of right ankle Numbness and tingling in left hand Left hand pain Stiffness of left hand joint Emesis Overweight (BMI 25.0-29.9) Borderline diabetes Dyslipidemia Non-toxic multinodular goiter Diabetes type 2, controlled History of restless legs syndrome Anxiety Depression High cholesterol Asthma DVT (deep venous thrombosis) GERD (gastroesophageal reflux disease) Anastomotic ulcer Functional capacity: independent ambulation Patient : No Family History Family History Mother Diabetes mellitus CHF (congestive heart failure) Kidney failure Cervical cancer Brother No problems noted. Brother No problems noted. Surgical History Surgical History H/O removal of cyst (02/03/23) History of removal of cyst (07/28/22) Hx of cholecystectomy History of surgery History of surgery on left wrist Hx of elbow surgery History of excision of epidermal inclusion cyst (03/23/22) Hx of excision of epidermal inclusion cyst (12/25/21) History of excision of mass (10/26/21) S/P trigger finger release History of tooth extraction Hx of hand surgery Hx of esophagogastroduodenoscopy S/P gastric bypass History of hysterectomy Social History Social History Household Members: Spouse Are you a primary adult daycare coordinator to a significant other at home: No Do you presently have visiting nurse or other home services: No Alcohol intake: never Patient Tobacco Use Status: Former Tobacco user Quit Date: 6 months ago Tobacco use type: Cigarette Cigarette Packs Per Day: 0 Cigarettes Per Day: 1 Years Smoked: 30 Current occupational status: employed 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 Meds Allergies Allergy/AdvReac Type Severity Reaction Status Date / Time Penicillins Allergy Intermediate HIVES Verified 08/25/23 07:13 sulfamethoxazole Allergy Intermediate BLISTERS- Verified 08/25/23 07:13 [From BACTRIM] DELGADO - NERVE ENDINGS IN HAND/ERYTHEMA MULTIFORM trimethoprim [From BACTRIM] Allergy Intermediate BLISTERS- Verified 08/25/23 07:13 DELGADO - NERVE ENDINGS IN HAND/ERYTHEMA MULTIFORM latex [Latex] Allergy Mild RASH Verified 08/25/23 07:13 theophylline AdvReac Intermediate TACHYCARDIA Verified 08/25/23 07:13 TEGADERM Allergy Intermediate SKIN TEARS Uncoded 08/03/23 13:30 From COMPAZINE AdvReac Severe SEIZURES Uncoded 08/03/23 13:30 Home Medications Medication Instructions Recorded Confirmed Last Taken Type hydrochlorothiazide 12.5 mg capsule 12.5 mg PO DAILY 05/09/20 08/23/23 10/13/22 History hydroxyzine HCl 25 mg tablet 50 mg PO BEDTIME 06/04/20 08/23/23 10/13/22 History pramipexole 0.25 mg tablet 1 tab DAILY 10/20/21 08/23/23 10/13/22 History sertraline 100 mg tablet 1 tab PO BEDTIME 10/20/21 08/23/23 10/13/22 History tizanidine 4 mg tablet 1 tab PO BEDTIME 04/19/22 02/20/24 04/12/23 History ferrous sulfate 325 mg (65 mg 325 mg PO DAILY 06/01/22 08/23/23 10/11/22 History iron) tablet,delayed release cyanocobalamin (vitamin B-12) 1,000 mcg PO QAM 06/03/22 08/23/23 10/13/22 History 1,000 mcg tablet metformin 500 mg tablet,extended 500 mg PO BID 06/03/22 08/23/23 10/13/22 History release 24 hr Exam Airway Mallampati Class: II TM Dist: <=3cm Neck ROM: Full Partial: Upper Loose/Missing/Broken Teeth: No Heart: rrr Lungs: cta b/l Assessment and Plan Assessment Anesthesia Assessment: Anesthesia Plan Discussed Final Anesthetic Review NPO: Yes ASA Class: III Final Preanesthetic Review: No Changes in Pt Med Stat, Meds/Allgs Chart Reviewed, Consent Obtained/Reviewed and Anes Risks/Benef Reviewed Patient Risk: Intermediate Procedure Risk: Intermediate Anesthetic Plan Anesthetic Plan: MAC: Disposition: Standard PACU
[2023-08-25 07:23] VITALS: BP 106/63; PULSE 82; RESP 15; TEMP 36.6; O2SAT 98; BMI 27.7
[2023-08-25] MEDS: Lactated Ringers 1,000 ML 100 ML IVCONT (07:35)
[2023-08-25 07:36] LABS: Glucose, Whole Blood 131 mg/dL (60-115)
--- NOTE | 2023-08-25 07:43 | P.HPSUR_ITS ---
Pre-Procedural Eval Section A - 24 Hr Update-Section A only Date of Service: 08/25/23 Section B - Complete if H&P > 30 days Chief Complaint: Noninfective gastroenteritis and colitis, unspecif Relevant Family History (Specify if Yes): No Relevant Social History: None Present Medications: see Short Stay Collaborative assessment Medical History: Significant History ( Abdominal pain Infection of skin due to methicillin resistant Staphylococcus aureus (MRSA) Numbness of right hand COVID- 19 Sebaceous cyst Abscess Cubital tunnel syndrome on left Contusion of right ankle Numbness and tingling in left hand Left hand pain Stiffness of left hand joint Emesis Overweight) History of Previous Operations: Relevant previous surgery/procedure and date(s) (H/O removal of cyst (02/03/23) History of removal of cyst (07/28/22) Hx of cholecystectomy History of surgery History of surgery on left wrist Hx of elbow surgery History of excision of epidermal inclusion cyst (03/23/22) Hx of exci rico of epidermal inclusion cyst (12/25/21) History of excision of m) Allergies: Allergies Allergy/AdvReac Type Severity Reaction Status Date / Time Penicillins Allergy Intermediate HIVES Verified 08/25/23 07:13 sulfamethoxazole Allergy Intermediate BLISTERS- Verified 08/25/23 07:13 [From BACTRIM] DELGADO - NERVE ENDINGS IN HAND/ERYTHEMA MULTIFORM trimethoprim [From BACTRIM] Allergy Intermediate BLISTERS- Verified 08/25/23 07:13 DELGADO - NERVE ENDINGS IN HAND/ERYTHEMA MULTIFORM latex [Latex] Allergy Mild RASH Verified 08/25/23 07:13 theophylline AdvReac Intermediate TACHYCARDIA Verified 08/25/23 07:13 TEGADERM Allergy Intermediate SKIN TEARS Uncoded 08/03/23 13:30 From COMPAZINE AdvReac Severe SEIZURES Uncoded 08/03/23 13:30 Review of Systems Sugical H&P ROS: Negative: Constitution, Cardiovascular, Respiratory, Neurological, Psychiatric, Hem-Onc, Allergic/Immunologic, Gastrointestinal, Genitourinary, Musculoskeletal, Integumentary, Endocrine and Eyes/Ears/Nose/Throat Exam Surgical H&P Exam: Normal: HEENT, Normal: Heart, Normal: Lungs, Normal: Extremities, Normal: Abdomen, Normal: Skin and Normal: Neurological Plan Diagnosis/Plan: Unchanged I have reviewed the history and physical and performed a pertinent physical examination on my patient. No changes have occurred unless specified. Time Spent With Patient Time: Total time managing care of this patient today ____ minutes.
--- NOTE | 2023-08-25 08:55 | P.OP_ITS ---
Operative Note Operative Note Date of Service: 08/25/23 Narrative: Operative Information Procedure Description: EGD, Colonoscopy Indication: abdominal pain and altered bowel habit Anesthesia: MAC FLEXIBLE TRANSORAL UPPER GASTROINTESTINAL ENDOSCOPY AND COLONOSCOPY PROCEDURE NOTE UPPER ENDOSCOPY Consent: Indications for the procedure and potential complications of bleeding, perforation, reaction to medications and missed diagnosis were discussed with the patient and informed consent was obtained. Instrument: Olympus GIF H 190 J mid size upper endoscope Monitoring: Vital signs and clinical assessment, continuous EKG monitoring, Pulse oximetry, Carbon Dioxide monitoring and blood pressure monitoring were done throughout the procedure. Procedure: The patient was placed in the left lateral decubitis position and pre-procedure medications were administered and a bite block was placed. The endoscope was inserted into the mouth and advanced under direct vision to the jejunum-hx of gastric bypass . A careful inspection was made as the upper endoscope was withdrawn including a retroflexed examination of the proximal stomach; Findings and interventions are described below. Findings: Larynx:normal Esophagus: GE junction at 40 cm, diaphragm hiatus at 40 cm, mild erythema GEJ bx taken and from distal esophagus Stomach pouch: Normal mucosa. Biopsies were obtained. Grade 2 flap valve on retroflexed examination of the cardia. LEs was patulous. Jejunum: Normal -bx taken Intervention: Biopsies as noted above COLONOSCOPY Instrument: Olympus variable stiffness pediatric scope 190L Colonoscopy Monitoring: Vital signs and clinical assessment, continuous EKG monitoring, Pulse oximetry, Carbon Dioxide monitoring and blood pressure monitoring were done throughout the procedure. Colon withdrawal time was 12 minutes. Procedure: The patient was placed in the left lateral decubitis position and pre-procedure medications were administered. After a digital rectal examination of the ano-rectum, the video colonoscope was inserted into the rectum and advanced through the colon to the cecum/TI. The colonoscope was slowly withdrawn in a retrograde panoramic fashion and the colon mucosa was carefully examined including a retroflexed view of the rectum. Findings and interventions are described below. Procedure Difficulty:moderate, tortuous colon Findings: Terminal Ileum-normal, random bx taken Random colon bx taken Cecum:normal Ascending Colon: scattered diverticulosis Transverse Colon - mild to moderate diverticulosis Descending Colon: moderate diverticulosis Sigmoid Colon: severe diverticulosis Rectum: Retroflexion with small internal hemorrhoids, grade I, 10 mm sessile polyp removed with cold snare Anorectum - normal Colon preparation: Ulysses Bowel Preparation Scale Right colon; 2 Transverse colon: 2 Left colon; 3 (0 = Unprepared colon segment with mucosa not seen due to solid stool that cannot be cleared. 1 = Portion of mucosa of the colon segment seen, but other areas of the colon segment not well seen due to staining, residual stool and/or opaque liquid. 2 = Minor amount of residual staining, small fragments of stool and/or opaque liquid, but mucosa of colon segment seen well. 3 = Entire mucosa of colon segment seen well with no residual staining, small fragments of stool or opaque liquid) Impression and Post Procedure Diagnosis: Endoscopy Findings: patulous LES Colonoscopy Findings: polyp internal hemorrhoids diverticular disease tortuous colon Plan: Await Pathology results Repeat Colonoscopy in 5 years due to polyp or earlier if clinically indicated High fiber diet leaflet avoid straining at stool, epsom salts and sitz bath, anusol supps or cream if ongoing symptoms and bx neg then can consider CTe Above findings were reviewed with the patient and relevant handouts were provided if indicated.
[2023-08-25 09:13] VITALS: BP 92/52; PULSE 94; RESP 16; TEMP 36.2; O2SAT 94
[2023-08-25 09:28] VITALS: BP 113/71; PULSE 84; RESP 16; O2SAT 96
[2023-08-25 09:43] VITALS: BP 121/72; PULSE 79; RESP 16; TEMP 36.2; O2SAT 98
== END 2023-08-25 10:35 | disposition home or self-care (01) ==
PROVIDERS: PCP Student in an Organized Health Care Education/Training Program; Visit Provider Internal Medicine Gastroenterology
PROC: (CPT 45385; principal; 2023-08-25 08:20)
DX: K52.9 Noninfective gastroenteritis and colitis, unspecified (principal); D12.8 Benign neoplasm of rectum; K57.30 Diverticulosis of large intestine without perforation or abscess without bleeding; K64.0 First degree hemorrhoids; K22.4 Dyskinesia of esophagus; K21.9 Gastro-esophageal reflux disease without esophagitis; K44.9 Diaphragmatic hernia without obstruction or gangrene; E78.5 Hyperlipidemia, unspecified; J45.909 Unspecified asthma, uncomplicated; E11.9 Type 2 diabetes mellitus without complications; Z79.84 Long term (current) use of oral hypoglycemic drugs; Z79.899 Other long term (current) drug therapy; Z88.0 Allergy status to penicillin; Z88.2 Allergy status to sulfonamides; Z88.8 Allergy status to other drugs, medicaments and biological substances; Z91.040 Latex allergy status; Z98.84 Bariatric surgery status; Z87.891 Personal history of nicotine dependence
CPT/HCPCS: 45385; 45380; 43239; 82947; 88305; 88313; 88342

== ENCOUNTER → 2023-08-25 06:45 | Outpatient (BNV) | payer MEDICAID, SELFPAY | PROVIDERS: PCP Student in an Organized Health Care Education/Training Program; Visit Provider Internal Medicine Gastroenterology | DX: K22.4 Dyskinesia of esophagus (principal); K63.5 Polyp of colon; K57.90 Diverticulosis of intestine, part unspecified, without perforation or abscess without bleeding; K64.8 Other hemorrhoids | CPT/HCPCS: 43239; 45380; 45385 ==

== ENCOUNTER 2023-09-05 08:22 | Outpatient (AMB) | payer MEDICAID, SELFPAY ==
--- NOTE | 2023-09-05 08:23 | A.OFFVIS_ITS ---
Intake Vital Signs 09/05/23 08:32 Height 5 ft 3 in Weight 156 lb BMI 27.6 Intake Visit Reasons: New Prob- Left hip pain Intake Note: Nayely jiang 62 year old female presents today for an evaluation of left hip pain. Patient reports bilateral hip pain for about 2 year with her right hip being the worse. Her pain radiates down her leg and she will have numbness in her legs. States with kneeling down she is unable to get back up and difficulty sleeping. She is seen by pain management however pain medication does not help. No previous tx. Hx of back surgery years ago. Allergies Penicillins Allergy (Intermediate, Verified 09/05/23 08:31) HIVES sulfamethoxazole [From BACTRIM] Allergy (Intermediate, Verified 09/05/23 08:31) BLISTERS- DELGADO - NERVE ENDINGS IN HAND/ERYTHEMA MULTIFORM trimethoprim [From BACTRIM] Allergy (Intermediate, Verified 09/05/23 08:31) BLISTERS- DELGADO - NERVE ENDINGS IN HAND/ERYTHEMA MULTIFORM latex [Latex] Allergy (Mild, Verified 09/05/23 08:31) RASH theophylline Adverse Reaction (Intermediate, Verified 09/05/23 08:31) TACHYCARDIA TEGADERM Allergy (Intermediate, Uncoded 09/05/23 08:31) SKIN TEARS From COMPAZINE Adverse Reaction (Severe, Uncoded 09/05/23 08:31) SEIZURES HPI New Prob- Left hip pain HPI Details 62-year-old [facility] pain. She was seen at pain management where she was given oxycodone which did not provide her any relief. She reports she has pain in her bilateral hips which is worse on her left hip. She currently states she has pain in her hip which radiates down to her legs. Her pain is aggravated at night and she is unable to get back up after kneeling down. She also c/o numbness in her legs as well as experiences a sharp pain in her hip with ambulation. She has not had any previous treatment. She has a history of back surgery. [facility] Medical History Abdominal pain Infection of skin due to methicillin resistant Staphylococcus aureus (MRSA) Numbness of right hand COVID-19 Sebaceous cyst Abscess Cubital tunnel syndrome on left Contusion of right ankle Numbness and tingling in left hand Left hand pain Stiffness of left hand joint Emesis Overweight (BMI 25.0-29.9) Borderline diabetes Dyslipidemia Non-toxic multinodular goiter Diabetes type 2, controlled History of restless legs syndrome Anxiety Depression High cholesterol Asthma DVT (deep venous thrombosis) GERD (gastroesophageal reflux disease) Anastomotic ulcer Surgical History H/O removal of cyst (02/03/23) History of removal of cyst (07/28/22) Hx of cholecystectomy History of surgery History of surgery on left wrist Hx of elbow surgery History of excision of epidermal inclusion cyst (03/23/22) Hx of excision of epidermal inclusion cyst (12/25/21) History of excision of mass (10/26/21) S/P trigger finger release History of tooth extraction Hx of hand surgery Hx of esophagogastroduodenoscopy S/P gastric bypass History of hysterectomy Family History Mother Diabetes mellitus CHF (congestive heart failure) Kidney failure Cervical cancer Brother No problems noted. Brother No problems noted. 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 Has mild discomfort with internal rotation of hip. No significant stiffness. Mild discomfort with hip flexion against resistance. Positive SLR bilaterally. NVI. Results Reviewed Results Reviewed: Xrays were obtained in the office today and personally reviewed by me of the left hip show mild subchondral sclerosis Assessment & Plan Assessment & Plan (1) Osteoarthritis of left hip: Code(s): M16.12 - Unilateral primary osteoarthritis, left hip Qualifiers: Osteoarthritis type: primary Qualified Code(s): M16.12 - Unilateral primary osteoarthritis, left hip (2) Tendonitis of left hip flexor: Code(s): M76.892 - Other specified enthesopathies of left lower limb, excluding foot (3) Low back pain: Code(s): M54.50 - Low back pain, unspecified Qualifiers: Chronicity: chronic Back pain laterality: bilateral Sciatica presence: unspecified whether sciatica present Qualified Code(s): M54.50 - Low back pain, unspecified; G89.29 - Other chronic pain Plan We discussed options in the office today which include left hip intraarticular injection which she would like to proceed with. This will be booked at the hospital. An order for physical therapy was also ordered for her low back and left hip symptoms. I also discussed referral to our spine center which she is interested in for a second opinion. If symptoms persist or worsens for her left hip, patient will contact the office, otherwise follow-up as needed. Orders: Orders XR hip LT w PEL1V Today M25.559 - Pain in unspecified hip Patient Instructions: Scribed for Wilson Wright PA-C, by Adán Sanders medical affairs specialist, on 09/05/2023 at 8:30 AM EST. I, Wilson Wright PA-C, have personally reviewed and agree with the information entered by the scribe. Coding Level of Care Code New Pt Level 3 (80597) Diagnoses Primary osteoarthritis of left hip M16.12 Osteoarthritis type: primary Tendonitis of left hip flexor M76.892 Chronic bilateral low back pain, unspecified whether sciatica present M54.50; G89.29 Chronicity: chronic Back pain laterality: bilateral Sciatica presence: unspecified whether sciatica present
[2023-09-05 08:32] VITALS: BMI 27.6
== END 2023-09-05 09:07 | disposition home or self-care (01) ==
PROVIDERS: PCP Student in an Organized Health Care Education/Training Program; Visit Provider Physician Assistant
DX: M16.12 Unilateral primary osteoarthritis, left hip (principal); M76.892 Other specified enthesopathies of left lower limb, excluding foot; M54.50 Low back pain, unspecified; G89.29 Other chronic pain
CPT/HCPCS: 99213

== ENCOUNTER 2023-09-05 15:52 | Outpatient (REF) | payer MEDICAID, SELFPAY ==
--- NOTE | ~2023-09-05 | XR_ITS ---
EXAMINATION: XR HIP, LEFT CLINICAL INFORMATION: Pain in left hip COMPARISON: 05/02/2022 TECHNIQUE: Two views of the left hip and single view of the pelvis. FINDINGS: No fracture. Alignment is anatomic. Hip joint space is maintained. Soft tissues are unremarkable. XR/XR hip LT w PEL1V IMPRESSION: Normal left hip.
== END 2023-09-05 15:53 | disposition home or self-care (01) ==
LOC: HO.HOSX 15:52
PROVIDERS: Visit Provider Physician Assistant
DX: M16.12 Unilateral primary osteoarthritis, left hip (principal); M25.551 Pain in right hip; M76.892 Other specified enthesopathies of left lower limb, excluding foot; M54.50 Low back pain, unspecified; G89.29 Other chronic pain
CPT/HCPCS: 73502; 99212

== ENCOUNTER 2023-09-08 10:50 | Day surgery (SDC) | payer MEDICAID, SELFPAY ==
--- NOTE | 2023-09-08 09:14 | P.OP_ITS ---
Operative Note Operative Note Date of Service: 09/08/23 Narrative: Operative Note Preop diagnosis: 1. Right trigger thumb Postop diagnosis: 1. Same Procedure: 1. Right thumb A1 palmira release Surgeon: Jessy Bautista MD Anesthesia: local block using 1% lidocaine with epinephrine Findings: No locking or catching after A1 palmira release EBL: Less than 5 mL Tourniquet time: None Specimens: None Complications: None Disposition: Brought to recovery room in stable condition Plan: Follow-up for 10-14 days for wound check and suture removal Indications: The patient is 62 years old, with a right trigger thumb that has been unresponsive to nonoperative management. The risks and benefits of operative treatment including but not limited to risk of damage to blood vessels, nerves, tendons, infection, persistent pain, persistent symptoms, recurrence or possible need for additional surgery were discussed with the patient and the patient wishes to proceed with surgery. Procedure: Once consent was obtained a local block was performed in the preop a corky using a combination of 1% lidocaine with epinephrine. The patient was then brought back to the operating suite and placed on the operative table in supine position. The right upper extremity was prepped and draped in a standard surgical fashion. Once assured that we had a good block, a 1.5 cm oblique incision was made centered over the A1 palmira of the right thumb . The incision was made through the skin to the subcutaneous tissues using a #15 blade. Careful dissection was made down to the level of the A1 palmira using tenotomy scissors, with care being taken to protect the nearby neurovascular structures. A longitudinal incision was made in the A1 palmira 1st using a #15 blade, then using tenotomy scissors under direct visualization. The A1 palmira was noted to be thickened. Following our A1 palmira release, we no longer saw any locking or catching of the digit with flexion and extension. Once satisfied with our A1 palmira release the wound was copiously irrigated with normal saline and hemostasis was obtained with a brief period of local pressure. The skin edges were reapproximated with some 5.0 nylon suture material and a sterile dressing was applied. The patient appears to have tolerated the procedure well and with no complications. All digits were well vascularized at the conclusion of the case.
[2023-09-08 11:54] VITALS: BP 130/74; PULSE 78; RESP 20; TEMP 36.1; O2SAT 99; BMI 24.5
--- NOTE | 2023-09-08 12:08 | PC.NURSE ---
pt tolerated block well
--- NOTE | 2023-09-08 13:18 | MHC.SHP ---
Pre-Procedural Eval Section A - 24 Hr Update-Section A only Date of Service: 09/08/23 The patient is an INPATIENT: No The patient has been examined within 24 hours of the surgical procedure. The History & Physical has been completed within 30 days and I have reviewed it.: Yes Section B - Complete if H&P > 30 days Chief Complaint: Trigger thumb, right thumb Allergies: Allergies Allergy/AdvReac Type Severity Reaction Status Date / Time Penicillins Allergy Intermediate HIVES Verified 09/05/23 08:31 sulfamethoxazole Allergy Intermediate BLISTERS- Verified 09/05/23 08:31 [From BACTRIM] DELGADO - NERVE ENDINGS IN HAND/ERYTHEMA MULTIFORM trimethoprim [From BACTRIM] Allergy Intermediate BLISTERS- Verified 09/05/23 08:31 DELGADO - NERVE ENDINGS IN HAND/ERYTHEMA MULTIFORM latex [Latex] Allergy Mild RASH Verified 09/05/23 08:31 theophylline AdvReac Intermediate TACHYCARDIA Verified 09/05/23 08:31 TEGADERM Allergy Intermediate SKIN TEARS Uncoded 09/05/23 08:31 From COMPAZINE AdvReac Severe SEIZURES Uncoded 09/05/23 08:31 Plan I have reviewed the history and physical and performed a pertinent physical examination on my patient. No changes have occurred unless specified. Time Spent With Patient Time: Total time managing care of this patient today ____ minutes.
[2023-09-08 14:10] VITALS: BP 106/60; PULSE 60; RESP 16; O2SAT 98
== END 2023-09-08 14:12 | disposition home or self-care (01) ==
PROVIDERS: PCP Student in an Organized Health Care Education/Training Program; Visit Provider Orthopaedic Surgery
PROC: (CPT 26055; principal; 2023-09-08 13:20)
DX: M65.311 Trigger thumb, right thumb (principal); M79.641 Pain in right hand; E11.9 Type 2 diabetes mellitus without complications; Z88.0 Allergy status to penicillin; Z88.2 Allergy status to sulfonamides; Z91.040 Latex allergy status; Z98.890 Other specified postprocedural states; Z87.891 Personal history of nicotine dependence
CPT/HCPCS: 26055; J0171

== ENCOUNTER → 2023-09-08 10:50 | Outpatient (BNV) | payer MEDICAID, SELFPAY | PROVIDERS: PCP Student in an Organized Health Care Education/Training Program; Visit Provider Orthopaedic Surgery | DX: M65.311 Trigger thumb, right thumb (principal) | CPT/HCPCS: 26055 ==

== ENCOUNTER 2023-09-11 23:07 | Emergency (ER) | payer MEDICAID, SELFPAY ==
[2023-09-11 23:28] VITALS: BP 136/69; PULSE 93; RESP 18; TEMP 36.7; O2SAT 97; BMI 27.3
[2023-09-12 00:14] LABS: MANUAL DIFF FLAG NO
[2023-09-12 00:15] LABS: Basophils Percent Auto 0.4 % (0-2); Eosinophils Absolute Auto 0.2 X10*3/uL (0.0-0.4); Eosinophils Percent Auto 3.2 % (0-4); Hematocrit 36.8 % (37.0-47.0); Hemoglobin 12.7 g/dl (12.0-16.0); Imm Gran Abs Auto 0.02 X10*3/uL (0.00-0.03); Imm Gran Pct Auto 0.3 % (0.0-0.4); Lymphocytes Absolute Auto 2.3 X10*3/uL (1.2-4.9); Lymphocytes Percent Auto 34.1 % (20-40); Mean Corpuscular HGB Conc 34.5 g/dl (31.0-35.0); Mean Corpuscular Hemoglobin 29.9 pg (27.0-33.0); Mean Corpuscular Volume 86.6 fL (80.0-98.0); Mean Platelet Volume 9.9 fL (9.4-12.3); Monocytes Absolute Auto 0.3 X10*3/uL (0.1-1.2); Monocytes Percent Auto 4.6 % (2-11); Neutrophils Absolute Auto 3.9 x10*3/uL (2.0-8.3); Neutrophils Percent Auto 57.4 % (45-73); Platelet Count 184 X10*3/uL (160-400); Red Blood Count 4.25 X10*6/uL (4.20-5.50); Red Cell Distribution Width 12.4 % (11.0-16.0); White Blood Count 6.8 X10*3/uL (4.8-10.8)
[2023-09-12 00:27] LABS: Appearance Urine Clear; Color Urine Yellow; Glucose Urine UA 500 mg/dL (Negative); Leukocyte Esterase Urine Negative (Negative); Nitrite Urine Negative (Negative); Urine Blood Negative (Negative); Urine Ketones Negative (Negative); Urine Protein Negative (Neg-Trace)
[2023-09-12 00:28] LABS: Alanine Aminotransferase 15 U/L (0-31); Albumin Level 3.8 g/dL (3.5-5.0); Alkaline Phosphatase 96 U/L (39-117); Anion Gap 12 (12-20); Aspartate Amino Transferase 17 U/L (5-31); Bilirubin Total 0.2 mg/dL (0.0-1.0); Blood Urea Nitrogen 16 mg/dL (9-16); Calcium 8.8 mg/dL (8.4-10.2); Carbon Dioxide 25 mmol/L (22-29); Chloride 108 mmol/L (96-108); Estimated Glomerular Filt Rate > 60; Glucose Random 239 mg/dL (60-115); Potassium 3.5 mmol/L (3.3-5.1); Sodium 141 mmol/L (135-145); Total Protein 6.3 g/dL (6.5-8.0)
[2023-09-12 00:30] LABS: Bacteria Urine Trace (None Seen); Hyaline Casts Urine 0-2 /LPF (0-2); RBC Urine 0-2 /HPF (0-2); Squamous Epithelial Cell Urine 0-2 /HPF (0-2); WBC Urine 0-5 /HPF (0-5)
[2023-09-12 01:46] VITALS: BP 119/58; PULSE 82; RESP 16; TEMP 36.4; O2SAT 98
--- NOTE | 2023-09-12 01:48 | PC.NURSE ---
Pt ca&ox4, no signs of distress. pt reports pmh of hydradentitis supprativa in groin area believes she has 3 now that are painful 03/13. Plan of care ongoing.
--- NOTE | 2023-09-12 02:18 | ED_ITS ---
HPI - Skin/Abscess/Foreign Bdy General Chief complaint: Skin/Abscess/Foreign Body Stated complaint: abscess, hand inj Time Seen by Provider: 09/12/23 02:17 Source: patient Mode of arrival: ambulatory Limitations: no limitations History of Present Illness HPI narrative: 62-year-old female with a history of multiple skin abscesses who presents emergency department for evaluation of 2 abscesses in her vaginal area. She states that she has been soaking in the bath tub and the abscesses even draining but she feels that there still pus in both abscesses. She states that the 1 on the left vaginal area has been drained several times. The 1 in the right vaginal area is new and she states is bigger. She states that she had fever and chills at home. She denied nausea vomiting. She denied rhinorrhea, sore throat, cough, chest pain or shortness of breath. Related Data Home Medications Medication Instructions Recorded Confirmed hydrochlorothiazide 12.5 mg capsule 12.5 mg PO DAILY 05/09/20 08/25/23 hydroxyzine HCl 25 mg tablet 50 mg PO BEDTIME 06/04/20 08/25/23 pramipexole 0.25 mg tablet 1 tab DAILY 10/20/21 08/25/23 sertraline 100 mg tablet 1 tab PO BEDTIME 10/20/21 08/25/23 tizanidine 4 mg tablet 1 tab PO BEDTIME PRN Pain 10/20/21 08/25/23 ferrous sulfate 325 mg (65 mg 325 mg PO DAILY 06/01/22 08/25/23 iron) tablet,delayed release cyanocobalamin (vitamin B-12) 1,000 mcg PO QAM 06/03/22 08/25/23 1,000 mcg tablet metformin 500 mg tablet,extended 500 mg PO BID 06/03/22 08/25/23 release 24 hr albuterol sulfate 90 mcg/actuation 2 puff inhalation Q4-6H PRN 08/25/23 08/25/23 aerosol inhaler Shortness Of Breath Or Wheezing Previous Rx's Medication Instructions Recorded cholecalciferol (vitamin D3) 50 50 mcg PO DAILY #30 caps 12/15/20 mcg (2,000 unit) capsule fluticasone propionate 50 2 spray intranasal DAILY #16 grams 06/21/21 mcg/actuation nasal spray,suspension (Flonase Allergy Relief) blood-glucose meter (FreeStyle #1 ea 08/21/21 Lite Meter kit) blood sugar diagnostic (FreeStyle #150 strips 03/30/22 Lite Strips) thiamine HCl (vitamin B1) 100 mg 100 mg PO DAILY #90 tabs 06/07/22 tablet lidocaine 5 % topical patch 1 patch topical DAILY #15 ea 11/10/22 (Lidoderm) cyclobenzaprine 10 mg tablet 10 mg PO Q8H #20 tabs 01/07/23 meclizine 25 mg tablet 25 mg PO TID PRN dizziness #20 tabs 02/11/23 pantoprazole 40 mg tablet,delayed 40 mg PO Q12H #60 tabs 06/07/23 release albuterol sulfate 1.25 mg/3 mL 1.25 mg (3 mL) inhalation QID PRN 06/11/23 solution for nebulization shortness of breath or wheezing #90 mL diclofenac sodium 1 % topical gel 2 g topical BID PRN pain (scale 07/18/23 (Aleve (diclofenac)) score 4-6) #100 grams oxycodone 5 mg tablet 5 mg PO TID PRN severe pain (scale 08/12/23 score 7-10) #9 tabs oxycodone-acetaminophen 5 mg-325 1 tab PO Q6H PRN pain #5 tabs 09/08/23 mg tablet doxycycline hyclate 100 mg tablet 100 mg PO Q12H 7 days #14 tabs 09/12/23 oxycodone 5 mg tablet 5 mg PO Q6H PRN pain #10 tabs 09/12/23 Allergies Allergy/AdvReac Type Severity Reaction Status Date / Time Penicillins Allergy Intermediate HIVES Verified 09/11/23 23:32 sulfamethoxazole Allergy Intermediate BLISTERS- Verified 09/11/23 23:32 [From BACTRIM] DELGADO - NERVE ENDINGS IN HAND/ERYTHEMA MULTIFORM trimethoprim [From BACTRIM] Allergy Intermediate BLISTERS- Verified 09/11/23 23:32 DELGADO - NERVE ENDINGS IN HAND/ERYTHEMA MULTIFORM latex [Latex] Allergy Mild RASH Verified 09/11/23 23:32 theophylline AdvReac Intermediate TACHYCARDIA Verified 09/11/23 23:32 TEGADERM Allergy Intermediate SKIN TEARS Uncoded 09/11/23 23:32 From COMPAZINE AdvReac Severe SEIZURES Uncoded 09/11/23 23:32 Review of Systems 2 Review of Systems: Yes all other systems are reviewed and are negative [facility] Past Medical History Medical History Abdominal pain Infection of skin due to methicillin resistant Staphylococcus aureus (MRSA) Numbness of right hand COVID-19 Sebaceous cyst Abscess Cubital tunnel syndrome on left Contusion of right ankle Numbness and tingling in left hand Left hand pain Stiffness of left hand joint Emesis Overweight (BMI 25.0-29.9) Borderline diabetes Dyslipidemia Non-toxic multinodular goiter Diabetes type 2, controlled History of restless legs syndrome Anxiety Depression High cholesterol Asthma DVT (deep venous thrombosis) GERD (gastroesophageal reflux disease) Anastomotic ulcer Surgical History H/O removal of cyst (02/03/23) History of removal of cyst (07/28/22) Hx of cholecystectomy History of surgery History of surgery on left wrist Hx of elbow surgery History of excision of epidermal inclusion cyst (03/23/22) Hx of excision of epidermal inclusion cyst (12/25/21) History of excision of mass (10/26/21) S/P trigger finger release History of tooth extraction Hx of hand surgery Hx of esophagogastroduodenoscopy S/P gastric bypass History of hysterectomy Family History Family History Mother Diabetes mellitus CHF (congestive heart failure) Kidney failure Cervical cancer Brother No problems noted. Brother No problems noted. 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 Physical Exam 2 Vital Signs: Vital Signs: Last Vital Signs Temp 97.6 F 09/12/23 01:46 Pulse 82 09/12/23 01:46 Resp 16 09/12/23 01:46 BP 119/58 L 09/12/23 01:46 Pulse Ox 98 09/12/23 01:46 O2 Del Method Room Air 09/12/23 01:46 BMI result Body Mass Index 27.3 Vital signs were normal Exam: General: Awake, alert in no distress Skin: The patient has 2 areas of possible abscesses in the vaginal area, the right vaginal area has a small vesicle with surrounding induration proximally 2 cm, the left vaginal area has a very small abscess with no induration Psych: Pleasant, cooperative Medications Administered Discontinued Medications Generic Name Dose Route Start Last Admin Trade Name Freq PRN Reason Stop Dose Admin Hydromorphone HCl 1 mg 09/12/23 02:32 09/12/23 02:37 Hydromorphone Hcl 1 Mg/Ml Syringe IM 09/12/23 02:33 1 mg ONCE ONE Administration Protocol Lidocaine HCl 5 ml 09/12/23 02:26 09/12/23 02:37 Lidocaine Hcl 1 % Mpf 5 Ml Vial INFILTRATI 09/12/23 02:27 5 ml ONCE STA Administration Lidocaine HCl 5 ml 09/12/23 02:27 09/12/23 02:38 Lidocaine Hcl 1 % Mpf 5 Ml Vial INFILTRATI 09/12/23 02:28 5 ml ONCE STA Administration Medical Decision Making Medical Decision Making [facility] Narrative: 62-year-old female with a history of multiple skin abscesses presents emergency department for evaluation of 2 abscesses in her vaginal area which have been draining purulent material, fever and chills. Vital signs were normal. Physical examination did reveal 2 small abscesses which required incision and drainage. Patient was premedicated with Dilaudid 1 mg IM. I did incise below the abscesses in only very small amount of purulent material was drained from the incision sites. The patient's right-sided abscess had a large area of induration which I probed with hemostats and an 18 gauge needle and was not able to get more purulent material out of this area suggesting that it is very indurated. Patient was also given oxycodone 5 mg orally, doxycycline 100 mg orally. Differential diagnosis: ?Includes but is not limited to cellulitis, abscess, sebaceous cyst Following evaluation was ordered: Dilaudid 1 mg IM, oxycodone 5 mg orally, doxycycline 100 mg orally My interpretation patient's laboratory evaluation is as follows: CBC was normal. BMP revealed an elevated glucose of 239. Lab Data MDM Lab Attestation statement: I reviewed the patient's lab results. 09/12/23 00:09 09/12/23 00:09 Labs: Lab Results 09/12/23 09/12/23 Range/Units 00:09 00:19 WBC 6.8 (4.8-10.8) X10*3/uL RBC 4.25 (4.20-5.50) X10*6/uL Hgb 12.7 (12.0-16.0) g/dl Hct 36.8 L (37.0-47.0) % MCV 86.6 (80.0-98.0) fL MCH 29.9 (27.0-33.0) pg MCHC 34.5 (31.0-35.0) g/dl RDW 12.4 (11.0-16.0) % Plt Count 184 (160-400) X10*3/uL MPV 9.9 (9.4-12.3) fL Immature Gran % (Auto) 0.3 (0.0-0.4) % Neut % (Auto) 57.4 (45-73) % Lymph % (Auto) 34.1 (20-40) % [place] % (Auto) 4.6 (2-11) % Eos % (Auto) 3.2 (0-4) % Baso % (Auto) 0.4 (0-2) % Lymph # (Auto) 2.3 (1.2-4.9) X10*3/uL [place] # (Auto) 0.3 (0.1-1.2) X10*3/uL Eos # (Auto) 0.2 (0.0-0.4) X10*3/uL Baso # (Auto) 0.0 (0.0-0.2) X10*3/uL Abs Immat Gran (auto) 0.02 (0.00-0.03) X10*3/uL Absolute Neuts (auto) 3.9 (2.0-8.3) x10*3/uL Absolute Nucleated RBC 0.000 (0.0-0.012) X10*3/uL Nucleated RBC % (auto) 0.0 (0.0-0.2) /100WBC Sodium 141 (135-145) mmol/L Potassium 3.5 (3.3-5.1) mmol/L Chloride 108 (96-108) mmol/L Carbon Dioxide 25 (22-29) mmol/L Anion Gap 12 (12-20) BUN 16 (9-16) mg/dL Creatinine 0.85 (0.5-1.4) mg/dL Estim Creat Clear Calc 66.0 Estimated GFR > 60 Random Glucose 239 H (60-115) mg/dL Calcium 8.8 (8.4-10.2) mg/dL Total Bilirubin 0.2 (0.0-1.0) mg/dL AST 17 (5-31) U/L ALT 15 (0-31) U/L Alkaline Phosphatase 96 (39-117) U/L Total Protein 6.3 L (6.5-8.0) g/dL Albumin 3.8 (3.5-5.0) g/dL Urine Color Yellow Urine Appearance Clear Urine pH 6.0 (5.0-9.0) Ur Specific [place] 1.020 (1.005-1.025) Urine Protein Negative (Neg-Trace) mg/dL Urine Glucose (UA) 500 H (Negative) mg/dL Urine Ketones Negative (Negative) mg/dL Urine Blood Negative (Negative) Urine Nitrite Negative (Negative) Ur Leukocyte Esterase Negative (Negative) Urine RBC 0-2 (0-2) /HPF Urine WBC 0-5 (0-5) /HPF Ur Squamous Epith Cells 0-2 (0-2) /HPF Urine Bacteria Trace (None Seen) Hyaline Casts 0-2 (0-2) /LPF Chronic Conditions Patient?s care impacted by: Diabetes and Other Procedures Procedure Narrative Procedure Narrative: 1) right vaginal abscess incision and drainage procedure: Patient gave informed verbal consent to proceed. The area of the abscess was prepped with Betadine then anesthetized 1% lidocaine x3 cc. Using a #11 blade scalpel the abscess was incised and only very small amount of purulent material was drained from the abscess. I did open the abscess cavity with hemostats but was not able to get more purulent material out. I probed the area with an 18 gauge needle on a syringe and still was not able to get significant amount of purulent material out of the abscess. Abscess was packed with quarter-inch iodoform gauze. 2) left vaginal abscess incision and drainage procedure Patient gave me informed verbal consent to proceed. The area was prepped with Betadine and anesthetized with 1% lidocaine x3 cc. Using a #11 blade scalpel the abscess was incised and a small amount of purulent material was expressed from the incision. Wound was explored with hemostats, the wound was then packed with a quarter-inch iodoform gauze. Patient tolerated the procedure well. Discharge Plan Discharge Clinical Impression: Abscess of vagina Instructions: Abscess (ED) Additional Instructions: The abscess on the right side of your vaginal area only drained a very small amount of pus, the skin in this area is swollen (indurated) secondary to infection. The abscess on the left sided vagina was very small and again only drained a small amount of pus. Both abscesses were packed with half-inch iodoform gauze packing. This packing needs be removed by either you or Dr. Zambrano in 3-4 days. Take doxycycline 100 mg, 1 pill every 12 hours for 7 days Take ibuprofen 200 mg pills, 23 pills every 6 hours as needed for pain. Take Tylenol (acetaminophen) 500 mg pills, 2 pills every 6 hours as needed for pain. For pain not relieved by ibuprofen or Tylenol take oxycodone 5 mg pills, 1 pill every 4 hours as needed for pain. Do not drive or work while taking this medication since they can cause sleepiness. Oxycodone is a narcotic medication that can be addicting. If you are concerned about addiction you can ask the pharmacist for less pills or do not get this prescription filled. Follow-up with your doctor in 2 days. Please return to the emergency department if your symptoms get worse or if you develop any symptoms that are concerning to you. Prescriptions: New doxycycline hyclate 100 mg tablet 100 mg PO Q12H 7 Days Qty: 14 0RF oxycodone 5 mg tablet 5 mg PO Q6H PRN (Reason: pain) Qty: 10 0RF Rx Instructions: Patient may request partial refill; Partial Fill upon patient request. No Action cholecalciferol (vitamin D3) 50 mcg (2,000 unit) capsule 50 mcg PO DAILY Qty: 30 11RF (DME) FreeStyle Lite Strips Strip See Rx Instructions .ROUTE .COMPLEX Qty: 150 6RF Dose Instruction: USE TO TEST BLOOD SUGAR TWICE DAILY Rx Instructions: USE TO TEST BLOOD SUGAR TWICE DAILY thiamine HCl (vitamin B1) 100 mg tablet 100 mg PO DAILY Qty: 90 3RF pantoprazole 40 mg tablet,delayed release (DR/EC) 40 mg PO Q12H Qty: 60 6RF hydroxyzine HCl 25 mg tablet 50 mg PO BEDTIME sertraline 100 mg tablet 1 tab PO BEDTIME pramipexole 0.25 mg tablet 1 tab DAILY tizanidine 4 mg tablet 1 tab PO BEDTIME PRN (Reason: Pain) fluticasone propionate [Flonase Allergy Relief] 50 mcg/actuation spray,suspension 2 spray intranasal DAILY Qty: 16 0RF Rx Instructions: administer into each nostril metformin 500 mg tablet extended release 24 hr 500 mg PO BID albuterol sulfate 1.25 mg/3 mL solution for nebulization 1.25 mg inhalation QID PRN (Reason: shortness of breath or wheezing) Qty: 90 0RF albuterol sulfate 90 mcg/actuation Hfa Aerosol Inhaler 2 puff INHALATION Q4-6H PRN (Reason: Shortness Of Breath Or Wheezing) oxycodone-acetaminophen 5-325 mg tablet 1 tab PO Q6H PRN (Reason: pain) Qty: 5 0RF Rx Instructions: Partial Fill upon patient request. lidocaine [Lidoderm] 5 % adhesive patch,medicated 1 patch topical DAILY Qty: 15 0RF Rx Instructions: leave on most painful area for up to 12 hrs cyclobenzaprine 10 mg tablet 10 mg PO Q8H Qty: 20 0RF meclizine 25 mg tablet 25 mg PO TID PRN (Reason: dizziness) Qty: 20 0RF diclofenac sodium [Aleve (diclofenac)] 1 % gel 2 g topical BID PRN (Reason: pain (scale score 4-6)) Qty: 100 0RF Rx Instructions: apply to single elbow, wrist or hand; for hand includes palm/fingers/back of hand oxycodone 5 mg tablet 5 mg PO TID PRN (Reason: severe pain (scale score 7-10)) Qty: 9 0RF Rx Instructions: Partial Fill upon patient request. hydrochlorothiazide 12.5 mg capsule 12.5 mg PO DAILY ferrous sulfate 325 mg (65 mg iron) tablet,delayed release (DR/EC) 325 mg PO DAILY (DME) blood-glucose meter [FreeStyle Lite Meter] Kit See Rx Instructions .Route Qty: 1 0RF Rx Instructions: As directed test blood sugar two times a day cyanocobalamin (vitamin B-12) 1,000 mcg tablet 1,000 mcg PO QAM
[2023-09-12] MEDS: Lidocaine HCl 1 % MPF 5 ML VIAL INFILTRATI ×2 (02:37→02:38)
[2023-09-12] MEDS: HYDROmorphone HCl 1 MG/ML SYRINGE IM (02:37)
--- NOTE | 2023-09-12 02:41 | PC.NURSE ---
Pt medicated per sep. Plan of care ongoing.
[2023-09-12] MEDS: oxyCODONE HCl Immed Release 5 MG TABLET PO (04:08)
[2023-09-12] MEDS: Doxycycline Monohydrate 100 MG CAPSULE PO (04:09)
== END 2023-09-12 04:21 | disposition home or self-care (01) ==
PROVIDERS: Emergency Provider Emergency Medicine Emergency Medical Services; PCP Student in an Organized Health Care Education/Training Program
DX: N76.4 Abscess of vulva (principal)
CPT/HCPCS: 36415; 56405; 80053; 81001; 85025; 96372; 99284; J1170

== ENCOUNTER 2023-09-13 10:24 | Outpatient (AMB) | payer MEDICAID, SELFPAY ==
--- NOTE | 2023-09-13 10:26 | A.OFFVIS_ITS ---
Intake Vital Signs 3 09/13/23 10:35 Height 5 ft 3 in Weight 157 lb BMI 27.8 BP 128/60 Blood Pressure Location Lt brachial Position Sitting Pulse 83 Temp 97 F Intake Visit Reasons: lower pubic hidradenitis, b/l buttock & back neck Intake Note: Patient is seen in office for follow up visit, hidradenitis of multiple areas. Pt c/o: went to ED on the weekend and buttock and pubic area was I&D was given antibiotics (still has Not pick them up), has a lump on the back of the neck that is painful to the touch Digital Research Analyst Required: No Accompanied by: Self / Same As Patient Allergies Penicillins Allergy (Intermediate, Verified 09/13/23 10:33) HIVES sulfamethoxazole [From BACTRIM] Allergy (Intermediate, Verified 09/13/23 10:33) BLISTERS- DELGADO - NERVE ENDINGS IN HAND/ERYTHEMA MULTIFORM trimethoprim [From BACTRIM] Allergy (Intermediate, Verified 09/13/23 10:33) BLISTERS- DELGADO - NERVE ENDINGS IN HAND/ERYTHEMA MULTIFORM latex [Latex] Allergy (Mild, Verified 09/13/23 10:33) RASH theophylline Adverse Reaction (Intermediate, Verified 09/13/23 10:33) TACHYCARDIA TEGADERM Allergy (Intermediate, Uncoded 09/13/23 10:33) SKIN TEARS From COMPAZINE Adverse Reaction (Severe, Uncoded 09/13/23 10:33) SEIZURES Medication List - Last Reconciled 09/13/23 by Flaco Zambrano MD albuterol sulfate 1.25 mg (3 mL) inhalation QID PRN albuterol sulfate 90 mcg/actuation 2 puffs inhalation Q4-6H PRN blood sugar diagnostic (FreeStyle Lite Strips) USE TO TEST BLOOD SUGAR TWICE DAILY blood-glucose meter (FreeStyle Lite Meter kit) As directed test blood sugar two times a day cholecalciferol (vitamin D3) 50 mcg PO DAILY cyanocobalamin (vitamin B-12) 1,000 mcg PO QAM cyclobenzaprine 10 mg PO Q8H diclofenac sodium 1% (Aleve (diclofenac)) 2 grams topical BID PRN doxycycline hyclate 100 mg PO Q12H 7 days ferrous sulfate 325 mg PO DAILY fluticasone propionate 50 mcg/actuation (Flonase Allergy Relief) 2 sprays intranasal DAILY hydrochlorothiazide 12.5 mg PO DAILY hydroxyzine HCl 50 mg PO BEDTIME lidocaine 5% (Lidoderm) 1 patch topical DAILY meclizine 25 mg PO TID PRN metformin ER 500 mg PO BID oxycodone 5 mg PO Q6H PRN pantoprazole 40 mg PO Q12H pramipexole 1 tab DAILY sertraline 1 tab PO BEDTIME thiamine HCl (vitamin B1) 100 mg PO DAILY tizanidine 1 tab PO BEDTIME PRN HPI HPI Comments 2 History of Present Illness0 Details 62-year-old female patient well known to service with a long history of hidradenitis presenting with 2 new infections in the labia on the left and right sides, status post I and D in the emergency department. She returns today for wound check and possible excision of the recurrent abscess. She also complains of an area in the posterior neck which was previously excised by Dr. Hua but is causing severe pain. [facility] Medical History Abdominal pain Infection of skin due to methicillin resistant Staphylococcus aureus (MRSA) Numbness of right hand COVID-19 Sebaceous cyst Abscess Cubital tunnel syndrome on left Contusion of right ankle Numbness and tingling in left hand Left hand pain Stiffness of left hand joint Emesis Overweight (BMI 25.0-29.9) Borderline diabetes Dyslipidemia Non-toxic multinodular goiter Diabetes type 2, controlled History of restless legs syndrome Anxiety Depression High cholesterol Asthma DVT (deep venous thrombosis) GERD (gastroesophageal reflux disease) Anastomotic ulcer Surgical History H/O removal of cyst (02/03/23) History of removal of cyst (07/28/22) Hx of cholecystectomy History of surgery History of surgery on left wrist Hx of elbow surgery History of excision of epidermal inclusion cyst (03/23/22) Hx of excision of epidermal inclusion cyst (12/25/21) History of excision of mass (10/26/21) S/P trigger finger release History of tooth extraction Hx of hand surgery Hx of esophagogastroduodenoscopy S/P gastric bypass History of hysterectomy Family History Mother Diabetes mellitus CHF (congestive heart failure) Kidney failure Cervical cancer Brother No problems noted. Brother No problems noted. 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 Review of Systems Const All systems reviewed & are unremarkable except as noted in HPI and below Physical Exam Vital Signs: Last Vital Signs Temp 97 F 09/13/23 10:35 Pulse 83 09/13/23 10:35 BP 128/60 09/13/23 10:35 BMI result Body Mass Index 27.8 Const General: comfortable and no acute distress Nutritional Appearance: well nourished Orientation/consciousness: patient oriented x3 Limitations: no limitations HEENT Head: Yes normocephalic and Yes atraumatic Ears: hearing grossly normal bilaterally Neck Other: Transverse incision posterior neck with no area of redness, fluctuance, or palpable cyst. No definite area of hidradenitis or epidermal inclusion cyst. Site is tender to palpation with no clear etiology. Resp Effort & Inspection: normal respiratory effort Female genitals images: 2 1. I&D left labia anterior, open and draining. No packing identified. 2. I&D site right labia posterior, open and draining, no packing identified. Neuro General: patient oriented x3 Extrem Other: Left hand dressing in place General: Yes no clubbing, cyanosis or edema Assessment & Plan Assessment & Plan (1) Hidradenitis suppurativa: Code(s): L73.2 - Hidradenitis suppurativa Plan 62-year-old female patient with a chronic history of multiple skin infections now with 2 new groin infections involving bilateral labia, status post incision and drainage several days ago. She was prescribed antibiotics but has not filled the prescription as of yet. She is reporting fever at home. 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 She should also perform warm soaks to the groin several times daily. I have asked her to return in 2 weeks to assess for possible excision. Coding Level of Care Code Est Pt Level 3 (15643) Diagnoses Hidradenitis suppurativa L73.2
[2023-09-13 10:35] VITALS: BP 128/60; PULSE 83; TEMP 36.1; BMI 27.8
== END 2023-09-13 10:45 | disposition home or self-care (01) ==
PROVIDERS: PCP Student in an Organized Health Care Education/Training Program; Visit Provider Surgery
DX: L73.2 Hidradenitis suppurativa (principal)
CPT/HCPCS: 99213

== ENCOUNTER → 2023-09-13 10:24 | Outpatient (BNVA) | payer MEDICAID, SELFPAY | PROVIDERS: PCP Student in an Organized Health Care Education/Training Program; Visit Provider Surgery | DX: L73.2 Hidradenitis suppurativa (principal) | CPT/HCPCS: 99212 ==

== ENCOUNTER 2023-09-14 19:52 | Emergency (ER) | payer MEDICAID, SELFPAY ==
[2023-09-14 20:39] VITALS: BP 110/59; PULSE 91; RESP 17; TEMP 36.7; O2SAT 96; BMI 27.8
--- NOTE | 2023-09-14 20:40 | ED_ITS ---
HPI - General Adult General Chief complaint: Upper Respiratory Symptoms Stated complaint: fever, congestion Time Seen by Provider: 09/15/23 00:58 Source: patient, RN notes reviewed and old records reviewed Mode of arrival: ambulatory Limitations: no limitations History of Present Illness HPI narrative: 62 year old female presents for evaluation of fevers, congestion body aches. Patient reports that she started to feel unwell 2 days ago. She developed congestion and fevers today. She took a home COVID test which was positive She denies any chest pain She endorses occasional shortness of breath No other complaints or concerns at this time Related Data Home Medications Medication Instructions Recorded Confirmed hydrochlorothiazide 12.5 mg capsule 12.5 mg PO DAILY 05/09/20 09/13/23 hydroxyzine HCl 25 mg tablet 50 mg PO BEDTIME 06/04/20 09/13/23 pramipexole 0.25 mg tablet 1 tab DAILY 10/20/21 09/13/23 sertraline 100 mg tablet 1 tab PO BEDTIME 10/20/21 09/13/23 tizanidine 4 mg tablet 1 tab PO BEDTIME PRN Pain 10/20/21 09/13/23 ferrous sulfate 325 mg (65 mg 325 mg PO DAILY 06/01/22 09/13/23 iron) tablet,delayed release cyanocobalamin (vitamin B-12) 1,000 mcg PO QAM 06/03/22 09/13/23 1,000 mcg tablet metformin 500 mg tablet,extended 500 mg PO BID 06/03/22 09/13/23 release 24 hr albuterol sulfate 90 mcg/actuation 2 puff inhalation Q4-6H PRN 08/25/23 09/13/23 aerosol inhaler Shortness Of Breath Or Wheezing Previous Rx's Medication Instructions Recorded cholecalciferol (vitamin D3) 50 50 mcg PO DAILY #30 caps 12/15/20 mcg (2,000 unit) capsule fluticasone propionate 50 2 spray intranasal DAILY #16 grams 06/21/21 mcg/actuation nasal spray,suspension (Flonase Allergy Relief) blood-glucose meter (FreeStyle #1 ea 08/21/21 Lite Meter kit) blood sugar diagnostic (FreeStyle #150 strips 03/30/22 Lite Strips) thiamine HCl (vitamin B1) 100 mg 100 mg PO DAILY #90 tabs 06/07/22 tablet lidocaine 5 % topical patch 1 patch topical DAILY #15 ea 11/10/22 (Lidoderm) cyclobenzaprine 10 mg tablet 10 mg PO Q8H #20 tabs 01/07/23 meclizine 25 mg tablet 25 mg PO TID PRN dizziness #20 tabs 02/11/23 pantoprazole 40 mg tablet,delayed 40 mg PO Q12H #60 tabs 06/07/23 release albuterol sulfate 1.25 mg/3 mL 1.25 mg (3 mL) inhalation QID PRN 06/11/23 solution for nebulization shortness of breath or wheezing #90 mL diclofenac sodium 1 % topical gel 2 g topical BID PRN pain (scale 07/18/23 (Aleve (diclofenac)) score 4-6) #100 grams doxycycline hyclate 100 mg tablet 100 mg PO Q12H 7 days #14 tabs 09/12/23 oxycodone 5 mg tablet 5 mg PO Q6H PRN pain #10 tabs 09/12/23 nirmatrelvir 300 mg (150 mg See Rx Instructions PO .COMPLEX 09/15/23 x2)-ritonavir 100 mg tablet,dose #30 ea pack (Paxlovid) Allergies Allergy/AdvReac Type Severity Reaction Status Date / Time Penicillins Allergy Intermediate HIVES Verified 09/13/23 10:33 sulfamethoxazole Allergy Intermediate BLISTERS- Verified 09/13/23 10:33 [From BACTRIM] DELGADO - NERVE ENDINGS IN HAND/ERYTHEMA MULTIFORM trimethoprim [From BACTRIM] Allergy Intermediate BLISTERS- Verified 09/13/23 10:33 DELGADO - NERVE ENDINGS IN HAND/ERYTHEMA MULTIFORM latex [Latex] Allergy Mild RASH Verified 09/13/23 10:33 theophylline AdvReac Intermediate TACHYCARDIA Verified 09/13/23 10:33 TEGADERM Allergy Intermediate SKIN TEARS Uncoded 09/13/23 10:33 From COMPAZINE AdvReac Severe SEIZURES Uncoded 09/13/23 10:33 Review of Systems Constitutional: Constitutional: Reports body ache(s), Reports chills, Reports fever(s), Reports headache(s), Reports malaise and Reports weakness Eyes: Eyes: Denies blurry vision ENT: Reports headache(s) and Denies sore throat Cardiovascular: Cardiovascular: Denies chest pain and Denies dyspnea Respiratory: Respiratory: Reports cough and Denies dyspnea Gastrointestinal: Gastrointestinal: Denies abdominal pain, Denies nausea and Denies vomiting Musculoskeletal: Musculoskeletal: Reports back pain Integumentary/Breasts: Skin/Breast: Denies rash Neurologic: Reports headache(s) and Reports weakness PMFSH Past Medical History Medical History Abdominal pain Infection of skin due to methicillin resistant Staphylococcus aureus (MRSA) Numbness of right hand COVID-19 Sebaceous cyst Abscess Cubital tunnel syndrome on left Contusion of right ankle Numbness and tingling in left hand Left hand pain Stiffness of left hand joint Emesis Overweight (BMI 25.0-29.9) Borderline diabetes Dyslipidemia Non-toxic multinodular goiter Diabetes type 2, controlled History of restless legs syndrome Anxiety Depression High cholesterol Asthma DVT (deep venous thrombosis) GERD (gastroesophageal reflux disease) Anastomotic ulcer Surgical History H/O removal of cyst (02/03/23) History of removal of cyst (07/28/22) Hx of cholecystectomy History of surgery History of surgery on left wrist Hx of elbow surgery History of excision of epidermal inclusion cyst (03/23/22) Hx of excision of epidermal inclusion cyst (12/25/21) History of excision of mass (10/26/21) S/P trigger finger release History of tooth extraction Hx of hand surgery Hx of esophagogastroduodenoscopy S/P gastric bypass History of hysterectomy Family History Family History Mother Diabetes mellitus CHF (congestive heart failure) Kidney failure Cervical cancer Brother No problems noted. Brother No problems noted. 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 Physical Exam ED Vital Signs: Vital Signs - 24 hr 09/14/23 20:39 09/15/23 00:57 09/15/23 01:01 Temperature 98.0 F 98.2 F Pulse Rate 91 88 Respiratory Rate 17 16 Blood Pressure 110/59 L 112/58 L Pulse Oximetry 96 96 100 Oxygen Delivery Method Room Air Room Air Room Air BMI result Body Mass Index 27.8 Const General: healthy appearing, comfortable, no acute distress, alert and awake Nutritional Appearance: well nourished Orientation/consciousness: patient oriented x3 HENMT Head: Yes normocephalic and Yes atraumatic Eyes Eyelids: Yes eyelids normal Conjunctivae: conjunctivae normal Sclerae: sclerae normal Corneas: corneas normal Pupils: Equal, round and reactive pupils present EOM: EOMs intact bilaterally Neck Neck: Yes full ROM Resp Effort & Inspection: normal respiratory effort, able to speak in complete sentences, no audible wheezes and not labored Auscultation: clear to auscultation bilaterally Cardio Rate: regular rate Rhythm: regular rhythm GI Inspection: No distended Palpation (GI): Soft to palpation, not firm, nontender, no guarding and not rigid Skin General skin exam: elasticity normal Neuro General: patient oriented x3 Cranial nerves: Yes CN's II-XII intact bilaterally, Yes Equal, round and reactive pupils present and Yes Bilaterally intact EOM present Cognition (Neuro): normal cognition Extrem Other: Moving all extremities well without any obvious deformities Course Course Course Narrative: RME performed by Lexis Roldan PA-C. Patient is a 62 year old assigned female at presenting to the emergency department feeling generally unwell. Patient states she tested positive for COVID-19 at home. Patient states that she wants something done . Detailed physical exam and review of systems are deferred to the kiln door repairer. Swabs ordered. Patient placed back in the waiting room pending room availability and results. Medical Decision Making Medical Decision Making MDM Narrative: [age] old female presents for evaluation of a COVID positive test. Repeat test also shows that she is definitely positive for COVID-19. Patient's vital signs are within normal limits, she is afebrile. She has no chest pain, she has not hypoxic. I do not see any indication for chest x-ray, as her lungs are clear to auscultation. There is no evidence of sepsis. Given her age over 62, we will treat with Paxlovid. I reviewed her medications and did not see any absolute contraindications to Paxlovid Differential Diagnosis Differential Diagnoses: The differential diagnosis associated with the presentation includes COVID-19 Influenza Strep pharyngitis Viral syndrome Upper respiratory infection Lab Data Labs: Lab Results 09/14/23 Range/Units 20:59 Influenza Type A (PCR) NEGATIVE (Negative) Influenza Type B (PCR) NEGATIVE (Negative) RSV RNA Qual (PCR) NEGATIVE (Negative) SARS-CoV-2 RNA (RT-PCR) POSITIVE A (Negative) Discharge Plan Discharge Clinical Impression: COVID-19 Patient Disposition: Home, Self-Care Instructions: COVID-19 (Coronavirus Disease 2019) (ED) Additional Instructions: You tested positive for COVID-19 Use Tylenol as needed for fevers, body aches. Drink lots of fluids. Take Paxlovid as prescribed Follow-up your primary doctor return for new or worsening symptoms, especially if you are having shortness of breath Prescriptions: New Paxlovid 300 mg (150 mg x 2)-100 mg tablets,dose pack See Rx Instructions .ROUTE .COMPLEX Qty: 30 0RF Rx Instructions: take TWO 150 mg tablets of nirmatrelvir with ONE 100 mg tablet of ritonavir twice daily for 5 days No Action cholecalciferol (vitamin D3) 50 mcg (2,000 unit) capsule 50 mcg PO DAILY Qty: 30 11RF (DME) FreeStyle Lite Strips Strip See Rx Instructions .ROUTE .COMPLEX Qty: 150 6RF Dose Instruction: USE TO TEST BLOOD SUGAR TWICE DAILY Rx Instructions: USE TO TEST BLOOD SUGAR TWICE DAILY thiamine HCl (vitamin B1) 100 mg tablet 100 mg PO DAILY Qty: 90 3RF pantoprazole 40 mg tablet,delayed release (DR/EC) 40 mg PO Q12H Qty: 60 6RF hydroxyzine HCl 25 mg tablet 50 mg PO BEDTIME sertraline 100 mg tablet 1 tab PO BEDTIME pramipexole 0.25 mg tablet 1 tab DAILY tizanidine 4 mg tablet 1 tab PO BEDTIME PRN (Reason: Pain) fluticasone propionate [Flonase Allergy Relief] 50 mcg/actuation spray,suspension 2 spray intranasal DAILY Qty: 16 0RF Rx Instructions: administer into each nostril metformin 500 mg tablet extended release 24 hr 500 mg PO BID albuterol sulfate 1.25 mg/3 mL solution for nebulization 1.25 mg inhalation QID PRN (Reason: shortness of breath or wheezing) Qty: 90 0RF albuterol sulfate 90 mcg/actuation Hfa Aerosol Inhaler 2 puff INHALATION Q4-6H PRN (Reason: Shortness Of Breath Or Wheezing) lidocaine [Lidoderm] 5 % adhesive patch,medicated 1 patch topical DAILY Qty: 15 0RF Rx Instructions: leave on most painful area for up to 12 hrs cyclobenzaprine 10 mg tablet 10 mg PO Q8H Qty: 20 0RF meclizine 25 mg tablet 25 mg PO TID PRN (Reason: dizziness) Qty: 20 0RF diclofenac sodium [Aleve (diclofenac)] 1 % gel 2 g topical BID PRN (Reason: pain (scale score 4-6)) Qty: 100 0RF Rx Instructions: apply to single elbow, wrist or hand; for hand includes palm/fingers/back of hand doxycycline hyclate 100 mg tablet 100 mg PO Q12H 7 Days Qty: 14 0RF oxycodone 5 mg tablet 5 mg PO Q6H PRN (Reason: pain) Qty: 10 0RF Rx Instructions: Patient may request partial refill; Partial Fill upon patient request. hydrochlorothiazide 12.5 mg capsule 12.5 mg PO DAILY ferrous sulfate 325 mg (65 mg iron) tablet,delayed release (DR/EC) 325 mg PO DAILY (DME) blood-glucose meter [FreeStyle Lite Meter] Kit See Rx Instructions .Route Qty: 1 0RF Rx Instructions: As directed test blood sugar two times a day cyanocobalamin (vitamin B-12) 1,000 mcg tablet 1,000 mcg PO QAM Stand Alone Forms: Work/School Release
[2023-09-14 21:46] LABS: Influenza A PCR NEGATIVE (Negative); Influenza B PCR NEGATIVE (Negative); Resp Syncy Virus RNA Qual PCR NEGATIVE (Negative); SARS COV2 PCR INHOUSE POSITIVE (Negative)
[2023-09-15 00:57] VITALS: BP 112/58; PULSE 88; RESP 16; TEMP 36.8; O2SAT 96
[2023-09-15 01:01] VITALS: O2SAT 100
== END 2023-09-15 01:42 | disposition home or self-care (01) ==
PROVIDERS: Physician Assistant Medical; Emergency Provider Internal Medicine; PCP Student in an Organized Health Care Education/Training Program
DX: U07.1 COVID-19 (principal); R50.9 Fever, unspecified; M79.10 Myalgia, unspecified site; R06.02 Shortness of breath; Z79.899 Other long term (current) drug therapy; Z87.891 Personal history of nicotine dependence
CPT/HCPCS: 0241U; 99283; 99284

== ENCOUNTER 2023-09-21 14:18 | Outpatient (AMB) | payer MEDICAID, SELFPAY ==
[2023-09-21 14:19] VITALS: BMI 27.8
--- NOTE | 2023-09-21 14:19 | MHC.OFFVIS ---
Intake Vital Signs 09/21/23 14:19 Height 5 ft 3 in Weight 157 lb BMI 27.8 Intake Visit Reasons: PO RT thumb trigger 09/08/23 Intake Note: Nayely 62 yr old female presents today for her P/O visit for her Right thumb trigger release from 09/08/23. States her thumb no longer locks and is doing well. Allergies Penicillins Allergy (Intermediate, Verified 09/21/23 14:26) HIVES sulfamethoxazole [From BACTRIM] Allergy (Intermediate, Verified 09/21/23 14:26) BLISTERS- DELGADO - NERVE ENDINGS IN HAND/ERYTHEMA MULTIFORM trimethoprim [From BACTRIM] Allergy (Intermediate, Verified 09/21/23 14:26) BLISTERS- DELGADO - NERVE ENDINGS IN HAND/ERYTHEMA MULTIFORM latex [Latex] Allergy (Mild, Verified 09/21/23 14:26) RASH theophylline Adverse Reaction (Intermediate, Verified 09/21/23 14:26) TACHYCARDIA TEGADERM Allergy (Intermediate, Uncoded 09/21/23 14:26) SKIN TEARS From COMPAZINE Adverse Reaction (Severe, Uncoded 09/21/23 14:26) SEIZURES HPI PO RT thumb trigger 09/08/23 HPI Details Nayely is a 62 year old right hand dominant Diabetic woman who returns S/P right trigger thumb release, DOS: 09/08/23. She says she is doing well and no longer has any locking or catching. 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 She says she does not do any heavy lifting but her hands often get dirty, and she wants to know what she can wear to return to work. She complains of some left elbow pain, primarily with heavy lifting & carrying activities. She is scheduled to be seen for this next week. [facility] Medical History Abdominal pain Infection of skin due to methicillin resistant Staphylococcus aureus (MRSA) Numbness of right hand COVID-19 Sebaceous cyst Abscess Cubital tunnel syndrome on left Contusion of right ankle Numbness and tingling in left hand Left hand pain Stiffness of left hand joint Emesis Overweight (BMI 25.0-29.9) Borderline diabetes Dyslipidemia Non-toxic multinodular goiter Diabetes type 2, controlled History of restless legs syndrome Anxiety Depression High cholesterol Asthma DVT (deep venous thrombosis) GERD (gastroesophageal reflux disease) Anastomotic ulcer Surgical History H/O removal of cyst (02/03/23) History of removal of cyst (07/28/22) Hx of cholecystectomy History of surgery History of surgery on left wrist Hx of elbow surgery History of excision of epidermal inclusion cyst (03/23/22) Hx of excision of epidermal inclusion cyst (12/25/21) History of excision of mass (10/26/21) S/P trigger finger release History of tooth extraction Hx of hand surgery Hx of esophagogastroduodenoscopy S/P gastric bypass History of hysterectomy Family History Mother Diabetes mellitus CHF (congestive heart failure) Kidney failure Cervical cancer Brother No problems noted. Brother No problems noted. 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 Sutures removed and Steri-Strips applied She can make a fist and extend all her digits Good active flexion and extension of the thumb with no locking and catching Sensation is intact Cap refill is brisk Psych Appearance: grossly normal Affect: normal affect Attitude: cooperative Assessment & Plan Assessment & Plan (1) Trigger thumb, right thumb: Code(s): M65.311 - Trigger thumb, right thumb (2) Diabetes type 2, controlled: Code(s): E11.9 - Type 2 diabetes mellitus without complications Plan Assessment & Plan: 1. Right trigger thumb, S/p release DOS: 09/08/23 The patient appears to be doing well post-operatively I educated her about the post-operative course I explained the signs and symptoms of infection I discussed activity modifications, she is to lift nothing heavier than a cellphone for the next two weeks She will perform gentle ROM exercises at home She should avoid any underwater activities for the next 5 days She should gently massage about the incision site to reduce the risk of hypersensitivity She can follow up prn Please see my note from 10/27/2022 for a list of additional diagnoses and previous surgeries as needed. Scribed for Jessy Bautista MD by Alcides Felix, medical claims processor, on 09/21/23 at 2:30 PM, EST. Coding Level of Care Code Global (52091) Diagnoses Trigger thumb, right thumb M65.311 Diabetes type 2, controlled E11.9
== END 2023-09-21 14:33 | disposition home or self-care (01) ==
PROVIDERS: PCP Student in an Organized Health Care Education/Training Program; Visit Provider Orthopaedic Surgery
DX: M65.311 Trigger thumb, right thumb (principal); E11.9 Type 2 diabetes mellitus without complications
CPT/HCPCS: 99024

== ENCOUNTER → 2023-09-21 14:18 | Outpatient (BNVA) | payer MEDICAID, SELFPAY | PROVIDERS: PCP Student in an Organized Health Care Education/Training Program; Visit Provider Orthopaedic Surgery | DX: M65.311 Trigger thumb, right thumb (principal); E11.9 Type 2 diabetes mellitus without complications | CPT/HCPCS: 99212 ==

== ENCOUNTER 2023-09-27 08:48 | Outpatient (AMB) | payer MEDICAID, SELFPAY ==
--- NOTE | 2023-09-27 08:52 | A.OFFVIS_ITS ---
Intake Vital Signs 09/27/23 08:59 Height 5 ft 3 in Weight 154 lb BMI 27.3 Intake Visit Reasons: follow up 08/10/2023 Intake Note: Pt here for follow up 08/10/2023, pt report ankle pain and swollen. Wire Mill Rover Required: No Information Interpreted: non-clinical & clinical Accompanied by: Self / Same As Patient Allergies Penicillins Allergy (Intermediate, Verified 09/27/23 16:21) HIVES sulfamethoxazole [From BACTRIM] Allergy (Intermediate, Verified 09/27/23 16:21) BLISTERS- DELGADO - NERVE ENDINGS IN HAND/ERYTHEMA MULTIFORM trimethoprim [From BACTRIM] Allergy (Intermediate, Verified 09/27/23 16:21) BLISTERS- DELGADO - NERVE ENDINGS IN HAND/ERYTHEMA MULTIFORM latex [Latex] Allergy (Mild, Verified 09/27/23 16:21) RASH theophylline Adverse Reaction (Intermediate, Verified 09/27/23 16:21) TACHYCARDIA TEGADERM Allergy (Intermediate, Uncoded 09/27/23 16:21) SKIN TEARS From COMPAZINE Adverse Reaction (Severe, Uncoded 09/27/23 16:21) SEIZURES HPI follow up 08/10/2023 HPI Details Very pleasant 62-year-old female presents for follow-up venous disease. She has had prior ablation is at [facility] nearly 8-9 years ago. In addition she has prior history of DVT. At the current time she does have occasional swelling but in general appears to be doing relatively well. She now presents for follow-up with venous insufficiency testing. [facility] Medical History Abdominal pain Infection of skin due to methicillin resistant Staphylococcus aureus (MRSA) Numbness of right hand COVID-19 Sebaceous cyst Abscess Cubital tunnel syndrome on left Contusion of right ankle Numbness and tingling in left hand Left hand pain Stiffness of left hand joint Emesis Overweight (BMI 25.0-29.9) Borderline diabetes Dyslipidemia Non-toxic multinodular goiter Diabetes type 2, controlled History of restless legs syndrome Anxiety Depression High cholesterol Asthma DVT (deep venous thrombosis) GERD (gastroesophageal reflux disease) Anastomotic ulcer Surgical History H/O removal of cyst (02/03/23) History of removal of cyst (07/28/22) Hx of cholecystectomy History of surgery History of surgery on left wrist Hx of elbow surgery History of excision of epidermal inclusion cyst (03/23/22) Hx of excision of epidermal inclusion cyst (12/25/21) History of excision of mass (10/26/21) S/P trigger finger release History of tooth extraction Hx of hand surgery Hx of esophagogastroduodenoscopy S/P gastric bypass History of hysterectomy Family History Mother Diabetes mellitus CHF (congestive heart failure) Kidney failure Cervical cancer Brother No problems noted. Brother No problems noted. 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 Review of Systems Const Reports as per HPI ENT Reports no additional complaints Card Denies chest pain, Denies chest pain at rest and Denies chest pain with activity Resp Denies chest congestion and Denies cough GI Reports no additional complaints Musc Details: pain over varicosities, aching of lower extremities, swelling, cramping, h eaviness and tiredness, itching Denies abnormal gait Skin/Breast Reports pruritus and Denies wounds Neuro Reports no additional complaints and Denies abnormal gait Psych Denies no additional complaints Physical Exam Vital Signs: BMI result Body Mass Index 27.3 Const General: cooperative, healthy appearing and comfortable Orientation/consciousness: oriented to person, oriented to place and oriented to time Neck Carotids: no bruits Chest Chest palpation & inspection: normal inspection of the chest and normal pa lpation of entire chest wall Resp Effort & Inspection: normal respiratory effort and able to speak in complete sentences Cardio Rate: regular rate Heart sounds: S1 normal heart sound present and S2 normal heart sound present Peripheral pulses: Peripheral pulses 2+ throughout GI Inspection: Yes normal to inspection Skin Other: +2 edema, +1 edema CEAP Classification C4 - skin color changes Ep - Etiology Primary As - superficial veins P - reflux General skin exam: dry skin Neuro General: oriented to person, oriented to place and oriented to time Extrem Right lower extremity: full ROM, normal capillary refill and edema Left lower extremity: full ROM, normal capillary refill and edema Psych Mental Status: mental status grossly normal Results Reviewed Results Reviewed: Brief summary of venous insufficiency testing is as follows: right great saphenous vein: negative right small saphenous vein: negative right accessory vein: none present left great saphenous vein: negative left small saphenous vein: negative left accessory vein: none present Please note there is no evidence of any venous aneurysms or significant tortuosity Assessment & Plan Assessment & Plan (1) Varicose veins of right lower extremity with inflammation: Code(s): I83.11 - Varicose veins of right lower extremity with inflammation Plan: In short her venous disease appears to be stable at the current time. I did inform her that she may have occasional swelling. Would continue with routine c onservative measures including compression elevation and exercise. She will follow up with us on an as-needed basis. Thank you for allowing us to assist in the care of this patient. If there are any questions or concerns please do not hesitate to contact us Coding Level of Care Code Est Pt Level 4 (02193) Diagnoses Varicose veins of right lower extremity with inflammation I83.11
[2023-09-27 08:59] VITALS: BMI 27.3
== END 2023-09-27 09:39 | disposition home or self-care (01) ==
PROVIDERS: PCP Student in an Organized Health Care Education/Training Program; Visit Provider Surgery Vascular Surgery
DX: I83.11 Varicose veins of right lower extremity with inflammation (principal)
CPT/HCPCS: 99213

== ENCOUNTER → 2023-09-27 08:48 | Outpatient (BNVA) | payer MEDICAID, SELFPAY | PROVIDERS: PCP Student in an Organized Health Care Education/Training Program; Visit Provider Surgery Vascular Surgery | DX: M77.12 Lateral epicondylitis, left elbow (principal); E11.9 Type 2 diabetes mellitus without complications; M54.2 Cervicalgia; I83.11 Varicose veins of right lower extremity with inflammation | CPT/HCPCS: 20551; 99212; J1100 ==

== ENCOUNTER 2023-09-27 10:25 | Outpatient (AMB) | payer MEDICAID, SELFPAY ==
--- NOTE | 2023-09-27 10:32 | A.OFFVIS_ITS ---
Intake Vital Signs 09/27/23 10:35 Height 5 ft 3 in Weight 156 lb BMI 27.6 BP 128/68 Blood Pressure Location Lt brachial Position Sitting Pulse 84 Intake Visit Reasons: 2 wk follow up multiple hidradenitis Intake Note: Patient is seen in office for 2 wks follow up visit, following multiple hidradenitis. Pt c/o: continued left groin discharge, pus/odor, back/buttock is feeling better, there is still a lump but no pain, neck lump is very painful, worse when turning the neck B Operator Required: No Accompanied by: Self / Same As Patient Allergies Penicillins Allergy (Intermediate, Verified 09/27/23 10:35) HIVES sulfamethoxazole [From BACTRIM] Allergy (Intermediate, Verified 09/27/23 10:35) BLISTERS- DELGADO - NERVE ENDINGS IN HAND/ERYTHEMA MULTIFORM trimethoprim [From BACTRIM] Allergy (Intermediate, Verified 09/27/23 10:35) BLISTERS- DELGADO - NERVE ENDINGS IN HAND/ERYTHEMA MULTIFORM latex [Latex] Allergy (Mild, Verified 09/27/23 10:35) RASH theophylline Adverse Reaction (Intermediate, Verified 09/27/23 10:35) TACHYCARDIA TEGADERM Allergy (Intermediate, Uncoded 09/27/23 10:35) SKIN TEARS From COMPAZINE Adverse Reaction (Severe, Uncoded 09/27/23 10:35) SEIZURES Medication List - Last Reconciled 09/27/23 by Flaco Zambrano MD albuterol sulfate 1.25 mg (3 mL) inhalation QID PRN albuterol sulfate 90 mcg/actuation 2 puffs inhalation Q4-6H PRN blood sugar diagnostic (FreeStyle Lite Strips) USE TO TEST BLOOD SUGAR TWICE DAILY blood-glucose meter (FreeStyle Lite Meter kit) As directed test blood sugar two times a day cholecalciferol (vitamin D3) 50 mcg PO DAILY cyanocobalamin (vitamin B-12) 1,000 mcg PO QAM cyclobenzaprine 10 mg PO Q8H diclofenac sodium 1% (Aleve (diclofenac)) 2 grams topical BID PRN ferrous sulfate 325 mg PO DAILY fluticasone propionate 50 mcg/actuation (Flonase Allergy Relief) 2 sprays intranasal DAILY hydrochlorothiazide 12.5 mg PO DAILY hydroxyzine HCl 50 mg PO BEDTIME lidocaine 5% (Lidoderm) 1 patch topical DAILY meclizine 25 mg PO TID PRN metformin ER 500 mg PO BID oxycodone 5 mg PO Q6H PRN pantoprazole 40 mg PO Q12H pramipexole 0.5 mg PO TID sertraline 1 tab PO BEDTIME thiamine HCl (vitamin B1) 100 mg PO DAILY tizanidine 1 tab PO BEDTIME PRN zolpidem 5 mg PO BEDTIME PRN HPI HPI Comments History of Present Illness Details 62-year-old female patient well known to service with a long history of hidradenitis presenting with 2 new infections in the labia on the left and right sides, status post I and D in the emergency department. She returns today for wound check and possible excision of the recurrent abscess. She also complains of an area in the posterior neck which was previously excised by Dr. Hua but is causing severe pain. Since her last visit she does report some drainage from the left groin. The more posterior lesion in the labia is much improved with no further pain. She continues to report pain in the posterior right neck but is unable to feel a specific skin lesion. [facility] Medical History Abdominal pain Infection of skin due to methicillin resistant Staphylococcus aureus (MRSA) Numbness of right hand COVID-19 Sebaceous cyst Abscess Cubital tunnel syndrome on left Contusion of right ankle Numbness and tingling in left hand Left hand pain Stiffness of left hand joint Emesis Overweight (BMI 25.0-29.9) Borderline diabetes Dyslipidemia Non-toxic multinodular goiter Diabetes type 2, controlled History of restless legs syndrome Anxiety Depression High cholesterol Asthma DVT (deep venous thrombosis) GERD (gastroesophageal reflux disease) Anastomotic ulcer Surgical History H/O removal of cyst (02/03/23) History of removal of cyst (07/28/22) Hx of cholecystectomy History of surgery History of surgery on left wrist Hx of elbow surgery History of excision of epidermal inclusion cyst (03/23/22) Hx of excision of epidermal inclusion cyst (12/25/21) History of excision of mass (10/26/21) S/P trigger finger release History of tooth extraction Hx of hand surgery Hx of esophagogastroduodenoscopy S/P gastric bypass History of hysterectomy Family History Mother Diabetes mellitus CHF (congestive heart failure) Kidney failure Cervical cancer Brother No problems noted. Brother No problems noted. 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 No definite area of hidradenitis or epidermal inclusion cyst. Site is tender to palpation with no clear etiology. Resp Effort & Inspection: normal respiratory effort Neuro General: patient oriented x3 Extrem Other: Left hand dressing in place General: Yes no clubbing, cyanosis or edema Assessment & Plan Assessment & Plan (1) Posterior neck pain: Comment: Right side Code(s): M54.2 - Cervicalgia Plan Patient with persistent posterior right neck pain of unknown etiology. No clear epidermal inclusion cyst is noted. I recommended further evaluation with CT of the soft tissue neck. She will return following the study to review the results and discuss treatment options. Orders: Orders CT soft tissue neck wo IV con Today M54.2 - Cervicalgia Coding Level of Care Code Est Pt Level 3 (85964) Diagnoses Posterior neck pain M54.2
[2023-09-27 10:35] VITALS: BP 128/68; PULSE 84; BMI 27.6
== END 2023-09-27 10:45 | disposition home or self-care (01) ==
PROVIDERS: PCP Student in an Organized Health Care Education/Training Program; Visit Provider Surgery
DX: M54.2 Cervicalgia (principal)
CPT/HCPCS: 99213

== ENCOUNTER 2023-09-27 15:34 | Outpatient (AMB) | payer MEDICAID, SELFPAY ==
[2023-09-27 16:17] VITALS: BMI 27.6
--- NOTE | 2023-09-27 16:17 | MHC.OFFVIS ---
Intake Vital Signs 09/27/23 16:17 Height 5 ft 3 in Weight 156 lb BMI 27.6 Intake Visit Reasons: O/V Lt RF/MF Tenotomy Ulnar Slip FDS 01/13/21 Intake Note: Nayely 62 yr old female presents today for her follow up visit for her Lt RF/MF Tenotomy Ulnar Slip FDS 01/13/21. States she is having pain on her lateral aspect of elbow. She has a small lump and is causing pain with heavy lifting and elbow flextion. Patient is has also had the following procedure done: Left Carpal tunnel release in 1984 Left repeat Carpal tunnel release with Dr. Bautista on 11/16/21 Left Cubital tunnel release from 1984 Left repeat Cubital tunnel release, with Dr. Bautista DOS: 04/15/22 Right Carpal tunnel release in 1994 Left dorsal wrist ganglion aspiration by Dr. Bautista on 06/03/22 Allergies Penicillins Allergy (Intermediate, Verified 09/27/23 16:21) HIVES sulfamethoxazole [From BACTRIM] Allergy (Intermediate, Verified 09/27/23 16:21) BLISTERS- DELGADO - NERVE ENDINGS IN HAND/ERYTHEMA MULTIFORM trimethoprim [From BACTRIM] Allergy (Intermediate, Verified 09/27/23 16:21) BLISTERS- DELGADO - NERVE ENDINGS IN HAND/ERYTHEMA MULTIFORM latex [Latex] Allergy (Mild, Verified 09/27/23 16:21) RASH theophylline Adverse Reaction (Intermediate, Verified 09/27/23 16:21) TACHYCARDIA TEGADERM Allergy (Intermediate, Uncoded 09/27/23 16:21) SKIN TEARS From COMPAZINE Adverse Reaction (Severe, Uncoded 09/27/23 16:21) SEIZURES HPI O/V Lt RF/MF Tenotomy Ulnar Slip FDS 01/13/21 HPI Details Nayely is a 62 year old right hand dominant woman who returns with new complaints of left lateral elbow pain. This is a new problem today. She complains of pain in the lateral aspect of her left elbow & forearm. She has pain primarily with gripping & heavy lifting activities. She says this has been present for ~3 months now. She denies any known injury or overuse. She says this is also accompanied by a burning sensation in her elbow & forearm. History of past upper extremity procedures, including: Left Carpal tunnel release in 1984 Left repeat Carpal tunnel release with Dr. Bautista on 11/16/21 Left Cubital tunnel release from 1984 Left repeat Cubital tunnel release, with Dr. Bautista DOS: 04/15/22 left middle finger & ring finger trigger release on 12/09/20 Left middle finger & ring finger ulnar slip FDS tenotomy on 01/13/21 Left dorsal wrist ganglion aspiration by Dr. Bautista on 06/03/22 Right carpal tunnel release in 1994 Right repeat carpal tunnel release with Dr. Bautista on 10/14/22 Right trigger thumb release on 09/08/23 All with good results thus far. [facility] Medical History Abdominal pain Infection of skin due to methicillin resistant Staphylococcus aureus (MRSA) Numbness of right hand COVID-19 Sebaceous cyst Abscess Cubital tunnel syndrome on left Contusion of right ankle Numbness and tingling in left hand Left hand pain Stiffness of left hand joint Emesis Overweight (BMI 25.0-29.9) Borderline diabetes Dyslipidemia Non-toxic multinodular goiter Diabetes type 2, controlled History of restless legs syndrome Anxiety Depression High cholesterol Asthma DVT (deep venous thrombosis) GERD (gastroesophageal reflux disease) Anastomotic ulcer Surgical History H/O removal of cyst (02/03/23) History of removal of cyst (07/28/22) Hx of cholecystectomy History of surgery History of surgery on left wrist Hx of elbow surgery History of excision of epidermal inclusion cyst (03/23/22) Hx of excision of epidermal inclusion cyst (12/25/21) History of excision of mass (10/26/21) S/P trigger finger release History of tooth extraction Hx of hand surgery Hx of esophagogastroduodenoscopy S/P gastric bypass History of hysterectomy Family History Mother Diabetes mellitus CHF (congestive heart failure) Kidney failure Cervical cancer Brother No problems noted. Brother No problems noted. 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 Review of Systems Const All systems reviewed & are unremarkable except as noted in HPI and below Physical Exam Vital Signs: BMI result Body Mass Index 27.6 Const General: no acute distress and alert Orientation/consciousness: patient oriented x3 Neuro General: patient oriented x3 Extrem Other: Evaluation of Left Upper Extremity: The patient is alert, oriented, and in no acute distress Neuro: Median, Ulnar, Radial nerves motor and sensory intact and sensation is normal to the tips of all digits Vascular: Cap refill brisk ROM: She can make a fist and extend all her digits She is most tender over the extensor origin ~2cm distal to the lateral epicondyle. This is reproducible Pain is referred here with resisted left wrist extension, and with resisted extension of the index and middle fingers Good elbow flexion extension and prono-supination. Psych Appearance: grossly normal Affect: normal affect Attitude: cooperative Office Procedures Fracture Care Details: No fracture, injection Fracture Billing Code: Fracture Billing Code Assessment & Plan Assessment & Plan (1) Diabetes type 2, controlled: Code(s): E11.9 - Type 2 diabetes mellitus without complications (2) Left lateral epicondylitis: Code(s): M77.12 - Lateral epicondylitis, left elbow Plan Assessment & Plan: 1. Left lateral epicondylitis This began approximately in late June 2023. I educated her about this condition I discussed operative and non-operative treatment options and I am not recommend surgery. The patient would like to proceed with an injection I discussed activity modification, she is to limit or avoid any heavy or repetitive gripping or lifting activities Unfortunately we are out of counterforce braces today, she will be contacted by the clinic when more are in stock I ordered OT hand therapy to work on stretching & normalizing function Injection #1: The risks and benefits of a steroid injection including but not limited to risk of damage to blood vessels, nerves, tendons, infection, skin bleaching, failure to improve symptoms, increased pain, and possible need for further injections or other intervention were discussed with the patient and the patient wishes to proceed with the steroid injection. Once consent was obtained, I sterilely prepped the area over the Left extensor origin, just distal to the lateral epicondyle. I then injected this area of maximal tenderness with a combination of 1 mL of dexamethasone (4mg/ml), and 1% plain Lidocaine. The patient tolerated the procedure well with no complications. Importantly, they had significant improvement in her painful symptoms. She may follow-up p.r.n. 2. Right trigger thumb, S/P release DOS: 09/08/23 Last seen on 09/21/2023 Doing well with no complaints Please see my previous notes as well as the HPI for a list of additional diagnoses and previous surgeries as needed. Scribed for Jessy Bautista MD by Alcides Felix, medical office specialist, on 09/27/23 at 4:50 PM, EST. Orders: Orders OT Evaluation and Treatment Today M77.12 - Lateral epicondylitis, left elbow Coding Level of Care Code Est Pt Level 3 (28939) Diagnoses Diabetes type 2, controlled E11.9 Left lateral epicondylitis M77.12 CPT Codes Fracture Care - Fracture Billing Code: Fracture Billing Code ([id number])
== END 2023-09-27 17:03 | disposition home or self-care (01) ==
PROVIDERS: PCP Student in an Organized Health Care Education/Training Program; Visit Provider Orthopaedic Surgery
DX: M77.12 Lateral epicondylitis, left elbow (principal); E11.9 Type 2 diabetes mellitus without complications
CPT/HCPCS: 20551; 99213

== ENCOUNTER 2023-10-05 13:39 | Outpatient (REF) | payer MEDICAID, SELFPAY ==
--- NOTE | ~2023-10-05 | CT_ITS ---
EXAMINATION: CT SOFT TISSUE NECK WITH CONTRAST CLINICAL INFORMATION: 62-year-old with cervicalgia. History of previous wide excision of skin infection of the posterior neck, now with persistent right posterior neck pain. COMPARISON: None available. TECHNIQUE: Following the intravenous administration of 60 mL of Omnipaque 350 intravenous contrast, helical imaging was performed in the axial plane with generation of coronal and sagittal reformatted images. This CT examination was performed using dose optimization techniques as appropriate, variously including the following: *Automated exposure control *Adjustment of mA and/or kV according to patient size (this includes techniques or standardized protocols for targeted exams where dose is matched to indication/reason for exam; i.e. extremities or head) *Use of iterative reconstruction technique DLP: 287.00 mGy-cm. FINDINGS: SKULL BASE: The bony skull base and visualized calvarium appear grossly intact.?Limited assessment of the visualized intracranial and orbital soft tissue structures is grossly unremarkable.?The visualized mastoids, middle ear cavities and sinonasal cavity are clear. SUPRAHYOID NECK: The visceral spaces demonstrate smooth contours without nodularity or abnormal enhancement. The box sorter and parapharyngeal spaces are within normal limits. The parotid glands are normal in morphology and attenuation. Foci of accessory parotid tissue are seen adjacent to the sternocleidomastoid muscles bilaterally. Oral cavity structures are normal in attenuation with no abnormal enhancement, with a normal appearance to the floor of the mouth and submandibular glands. Small, normal-sized, nonpathologic-appearing lymph nodes are seen in the submandibular spaces, submental region and bilateral IJ chains. Suprahyoid epiglottis appears normal. The skin and subcutaneous soft tissues along the posterior neck from the suboccipital region down to the hyoid bone, demonstrate no definite fluid collection or abnormal enhancement and no definite edematous changes. Diffuse skin thickening is noted throughout this region. INFRAHYOID NECK: The hypopharynx and larynx appear within normal limits. Thyroid gland is not enlarged. Subcentimeter left thyroid nodule is noted. See previous thyroid ultrasound report of 01/22/2021. No infrahyoid lymphadenopathy. The skin and subcutaneous tissues along the posterior aspect of the lower neck, below the level of the hyoid bone, demonstrate no fluid collection, edematous changes or abnormal enhancement. Diffuse skin thickening suspected. VASCULAR: There is opacification of the major arterial and venous structures. Nondominant right vertebral artery. Tonsillar loop of the right cervical internal carotid artery encroaches on the posterolateral oropharynx. Normal variant. UPPER CHEST: The visualized lung apices demonstrate no acute process. The visualized mediastinum is grossly unremarkable. Nonenlarged left axillary lymph nodes. SKELETAL: Mild lordotic reversal at C4-C5. Moderate cervical thoracic dextroscoliosis. Degenerative changes at the anterior atlantodental joint. OTHER COMMENTS: None. CT/CT soft tissue neck w IV con IMPRESSION: 1. No evidence for soft tissue mass or lymphadenopathy in the neck. 2. Possible diffuse skin thickening along the posterior aspect of the neck as described above with no definite fluid collection, abnormal enhancement or edematous changes. 3. Cervicothoracic dextroscoliosis and multilevel cervical degenerative changes with mild lordotic reversal at C4-C5. 4. Subcentimeter left thyroid nodule. See previous thyroid ultrasound report of 01/22/2021.
[2023-10-05] MEDS: iohexoL 350 MG/ML 100 ML INFUS..BTL IV (14:35)
== END 2023-10-05 13:40 | disposition home or self-care (01) ==
LOC: HO.CT 13:39
PROVIDERS: PCP Student in an Organized Health Care Education/Training Program; Visit Provider Surgery
DX: M54.2 Cervicalgia (principal)
CPT/HCPCS: 70491; Q9967

== ENCOUNTER → 2023-10-12 15:41 | Outpatient (BNVA) | payer MEDICAID, SELFPAY | PROVIDERS: PCP Student in an Organized Health Care Education/Training Program; Visit Provider Surgery ==

== ENCOUNTER 2023-10-16 19:15 | Emergency (ER) | payer MEDICAID, SELFPAY ==
--- NOTE | 2023-10-16 | ECG_ITS ---
Test Reason : CHEST PAIN Blood Pressure : / mmHG Vent. Rate : 072 BPM Atrial Rate : 072 BPM P-R Int : 140 ms QRS Dur : 078 ms QT Int : 384 ms P-R-T Axes : 066 038 041 degrees QTc Int : 420 ms Normal sinus rhythm Normal ECG When compared with ECG of 03-JUN-2022 15:21, No significant change was found Referred By: Generic ED Physician Electronically Signed By:VASILE ARCE
[2023-10-16 19:25] VITALS: BP 138/75; PULSE 68; RESP 18; TEMP 36.7; O2SAT 99; BMI 27.3
--- NOTE | 2023-10-16 19:25 | MHC.EDTECH ---
EKG TAKEN AND WAS READ BY PROVIDER .
[2023-10-16 19:44] LABS: MANUAL DIFF FLAG NO
[2023-10-16 19:46] LABS: Basophils Percent Auto 0.4 % (0-2); Eosinophils Absolute Auto 0.2 X10*3/uL (0.0-0.4); Eosinophils Percent Auto 2.6 % (0-4); Hematocrit 39.3 % (37.0-47.0); Hemoglobin 13.4 g/dl (12.0-16.0); Imm Gran Abs Auto 0.02 X10*3/uL (0.00-0.03); Imm Gran Pct Auto 0.2 % (0.0-0.4); Lymphocytes Absolute Auto 2.3 X10*3/uL (1.2-4.9); Mean Corpuscular HGB Conc 34.1 g/dl (31.0-35.0); Mean Corpuscular Hemoglobin 29.1 pg (27.0-33.0); Mean Corpuscular Volume 85.2 fL (80.0-98.0); Monocytes Absolute Auto 0.4 X10*3/uL (0.1-1.2); Neutrophils Absolute Auto 5.2 x10*3/uL (2.0-8.3); Neutrophils Percent Auto 63.8 % (45-73); Platelet Count 187 X10*3/uL (160-400); Red Blood Count 4.61 X10*6/uL (4.20-5.50); Red Cell Distribution Width 12.6 % (11.0-16.0); White Blood Count 8.1 X10*3/uL (4.8-10.8)
[2023-10-16 19:54] LABS: IDNOW Serial# 6674DD1D; Strep A Nucleic Acid Negative (Negative)
[2023-10-16 20:10] LABS: Alanine Aminotransferase 14 U/L (0-31); Albumin Level 3.8 g/dL (3.5-5.0); Alkaline Phosphatase 84 U/L (39-117); Anion Gap 13 (12-20); Aspartate Amino Transferase 15 U/L (5-31); Bilirubin Total 0.3 mg/dL (0.0-1.0); Blood Urea Nitrogen 15 mg/dL (9-16); Calcium 9.1 mg/dL (8.4-10.2); Carbon Dioxide 23 mmol/L (22-29); Chloride 108 mmol/L (96-108); Creatinine Clr Calc Pharmacy 76.8; Estimated Glomerular Filt Rate > 60; Glucose Random 147 mg/dL (60-115); Potassium 3.5 mmol/L (3.3-5.1); Sodium 140 mmol/L (135-145); Total Protein 6.5 g/dL (6.5-8.0)
[2023-10-16 20:11] LABS: HCG Quantitative 7 mIU/mL
[2023-10-16 20:12] LABS: Troponin-I High Sensitivity < 2.7 ng/L (<3.5-17.0)
[2023-10-16 20:31] LABS: Influenza A PCR NEGATIVE (Negative); Influenza B PCR NEGATIVE (Negative); Resp Syncy Virus RNA Qual PCR NEGATIVE (Negative); SARS COV2 PCR INHOUSE NEGATIVE (Negative)
[2023-10-16 21:53] VITALS: BP 123/75; PULSE 79; RESP 16; TEMP 36.7; O2SAT 96
== END 2023-10-16 23:23 | disposition left against medical advice (07) ==
PROVIDERS: Emergency Provider Emergency Medicine
DX: R07.9 Chest pain, unspecified (principal); M79.89 Other specified soft tissue disorders
CPT/HCPCS: 0241U; 80053; 84484; 84702; 85025; 87651; 93005; 99283

== ENCOUNTER → 2023-10-16 19:17 | Outpatient (BNV) | payer MEDICAID, SELFPAY | PROVIDERS: Emergency Provider Emergency Medicine; Visit Provider Internal Medicine | DX: R07.9 Chest pain, unspecified (principal) | CPT/HCPCS: 93010 ==

== ENCOUNTER 2023-10-18 09:30 | Outpatient (RCR) | payer MEDICAID, SELFPAY ==
--- NOTE | 2023-10-07 13:46 | MHC.OT.OLE ---
[address] [phone] F: [phone] Occupational Therapy Lymphedema Evaluation Patient Name: Nayely Grover Diagnosis: (L) Lateral Epicondylitis Date of Onset: 09/27/23 Attending Provider: Jessy Bautista Prescribed Treatment: Follow Up Appointment: History of Current Condition: Patient is a 62 y/o right handed female who with past medical history but not limited to GERD, DVT, DMII, Non-toxic multinodular goiter, who reports pain in the (L) elbow and numbness / tingling in the hand. She stated symptoms began approximately 4 months ago. She received a Cortisone injection 2 weeks ago. She was referred to skilled OT by Jessy Bautista MD for (L) Lateral Epicondylitis. Significant Medical History: Abdominal pain Infection of skin due to methicillin resistant Staphylococcus aureus (MRSA) Numbness of right hand COVID-19 Sebaceous cyst Abscess Cubital tunnel syndrome on left Contusion of right ankle Numbness and tingling in left hand Left hand pain Stiffness of left hand joint Emesis Overweight (BMI 25.0-29.9) Borderline diabetes Dyslipidemia Non-toxic multinodular goiter Diabetes type 2, controlled History of restless legs syndrome Anxiety Depression High cholesterol Asthma DVT (deep venous thrombosis) GERD (gastroesophageal reflux disease) Anastomotic ulcer Precautions/Contraindications: Hx of DVT Patient Goals: To feel no pain, to be able to lift items and open a water bottle. 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 Employment Status: Pain wakes her up in the night, sleeps for about 2 hours. Leisure Activites/Hobbies: Driving: Patient reports difficulty steering the wheel with hand. Sleeping: Vision: Balance: Pain Assessment Pain Score: 10 Pain Scale Used: Pain Location and Description: 7/10 pain at rest 10/10 during movement Aggravating Factors: Alleviating Factors: Skin and Soft Tissue Assessment Skin and Soft Tissue: Comments: Intact Nerve assessment Ulnar Nerve: Median Nerve: Radial Nerve: Comments: Sensory Assessment Temperature: Light Touch: Left Impaired Proprioception: Vibration: Comments: [place]-Dee Monofilament Test= Diminished light touch. Edema Assessment Upper Extremity: WNL Lower Extremity: Comments: Dexterity Assessment Dexterity: Left Impaired Comments: Functional Dexterity Test= 37.10 seconds indicating impaired coordination Special Tests Comments: Tinel's (+) Mill's test (-) Cozens (+) AROM (PROM) Strength Lower Extremity Hip Flexion: Knee Flexion: Knee Extension: Ankle Dorsiflexion: Ankle Plantarflexion: Ankle Eversion: Ankle Inversion: Comments: Cervical Flexion: Extension: Lateral Flexion: Rotation: Comments: Shoulder Flexion: Extension: Abduction: Internal Rotation: External Rotation: Comments: WFL Flexion: Extension: Abduction: Internal Rotation: External Rotation: Comments: 3+/5 grossly Elbow Flexion: Extension: Forearm Pronation: Forearm Supination: Comments: limited due to pain Flexion: Extension: Forearm Pronation: Forearm Supination: Comments: 3+/5 Wrist Flexion: Extension: Ulnar Deviation: Radial Deviation: Comments: WFL Flexion: Extension: Ulnar Deviation: Radial Deviation: Comments: 3+/5 Thumb Thumb CMC Flexion: Thumb MCP Flexion: Thumb IP Flexion: Radial Abduction: Palmar Abduction: Opposition: Comments: WFL Digits Index MCP: PIP: DIP: Long MCP: PIP: DIP: Ring MCP: PIP: DIP: Small MCP: PIP: DIP: Comments: WFL Gross Grasp: (R)21lbs., (L)12.3lbs. Lateral Pinch: 4 Two-Point Pinch: 4 Three-Jaw Jefry: 1 Comments: Patient Education Primary Language: Application Trainer Required: Current Knowledge: Teaching Method: Education Needs Identified on Evaluation: How did patient/family demonstrate learning? Barriers to Learning: Readiness for Learning: Who was educated? Comments: Plan of Care Assessment: STG Duration: 2 weeks Short Term Goals: Patient will report 8/10 pain in (L) elbow Patient will be (I) with activity modification when performing self care tasks Patient will be (I) donning/doffing CF brace Patient will increase radiologic technologist mammogram strength to 20lbs. for improved performance during self care tasks LTG Duration: 4 weeks Senior Living Goals: Patient will report 0/10 in (L) elbow Patient will be (I) with HEP Patient's Quick DASH score will be >60% indicating improvement of UE during self care tasks Frequency and Duration: The patient will be seen 2x a week for 4 weeks Treatment Plan: Therapeutic Exercise Therapeutic Activity Home Exercise Program Splinting Patient Education ADL Training Ultrasound Iontophoresis MHP Cold Packs Kinesiotaping Treatment Plan Comments: OT evaluation and treat Lymphedema Treatment Plan: Lymphedema Treatment Plan Comments: Electronically Signed By: JAMES Coleman/Bruce, CLT Reviewed/agree with student documentation: Therapist: Please sign and return to therapist, thank you for your referral.
--- NOTE | 2023-10-31 09:58 | MHC.OT.DC ---
[address] [phone] F: [phone] Occupational Therapy Discharge Note Patient Name: Nayely Grover Provider: Jessy Bautista Diagnosis: (L) Lateral Epicondylitis Date of Evaluation: 10/07/23 Date of Discharge: 10/31/23 Treatments to Date: 3 Cancellations to Date: 2 No Shows to Date: 3 Discharge Status: Visit Non-compliance Discharge Summary: Nayely was referred to OT w/ left lateral epicondylitis. She was last seen here two weeks ago, reported 8/10 pain. She has been educated on activity modification and joint protection, as well as home exercise program. She has missed five scheduled appointments, we will be discharging at this time per policy. Electronically Signed By: JAMES Red/Bruce CHT Reviewed/agree with student documentation: Therapist: Please Sign and return to therapist, thank you for your referral.
== END 2023-10-31 09:59 | disposition home or self-care (01) ==
LOC: HO.OT 09:30
PROVIDERS: PCP Student in an Organized Health Care Education/Training Program; Visit Provider Orthopaedic Surgery
DX: M77.12 Lateral epicondylitis, left elbow (principal)
CPT/HCPCS: 97035; 97110; 97140; 97165

== ENCOUNTER 2023-10-19 12:54 | Outpatient (REF) | payer MEDICAID, SELFPAY ==
--- NOTE | ~2023-10-19 | FL_ITS ---
LEFT HIP FLUOROSCOPIC GUIDED STEROID INJECTION INDICATIONS: Left hip pain. Intra-articular steroid injection is requested by orthopedic surgery. PROCEDURE: Risks and benefits and possible complications were discussed with the patient and the consent form was signed. The patient was placed supine on the fluoroscopy table. The left hip was prepped and draped in normal sterile fashion. 1% buffered lidocaine was used for anesthesia. A 22-gauge spinal needle was used to access the left hip joint. Intra-articular position of the needle within the hip joint was verified using 3 cc of Omnipaque 300. A total of 80 mg Medrol and 5 mL 1% lidocaine was then injected into the left hip joint. The needle was then removed and a Band-Aid was applied to the injection site. The patient tolerated the procedure well. There were no immediate complications. Single spot image demonstrates no significant arthritic changes of the left hip joint. FL/FL arthrogram hip LT IMPRESSION: Successful Fluoroscopic guided left hip steroid injection The procedure was performed by Jose Hendricks PA-C, and directly supervised by Dr. Giraldo.
== END 2023-10-19 12:55 | disposition home or self-care (01) ==
LOC: HO.XRAY 12:54
PROVIDERS: PCP Student in an Organized Health Care Education/Training Program; Visit Provider Physician Assistant
DX: M16.12 Unilateral primary osteoarthritis, left hip (principal)
CPT/HCPCS: 27093; 73525

== ENCOUNTER → 2023-10-19 12:55 | Outpatient (BNV) | payer MEDICAID, SELFPAY | PROVIDERS: PCP Student in an Organized Health Care Education/Training Program; Visit Provider Physician Assistant Surgical | DX: M16.12 Unilateral primary osteoarthritis, left hip (principal); M25.552 Pain in left hip | CPT/HCPCS: 20610; 77002 ==

== ENCOUNTER 2023-10-21 22:41 | Emergency (ER) | payer MEDICAID, SELFPAY ==
[2023-10-21 23:26] VITALS: BP 123/85; PULSE 78; RESP 18; TEMP 36.8; O2SAT 98; BMI 26.9
[2023-10-22 00:03] LABS: MANUAL DIFF FLAG NO
[2023-10-22 00:17] LABS: Basophils Absolute Auto 0.1 X10*3/uL (0.0-0.2); Basophils Percent Auto 0.6 % (0-2); Eosinophils Absolute Auto 0.3 X10*3/uL (0.0-0.4); Eosinophils Percent Auto 3.1 % (0-4); Hematocrit 39.3 % (37.0-47.0); Hemoglobin 13.3 g/dl (12.0-16.0); Imm Gran Abs Auto 0.02 X10*3/uL (0.00-0.03); Imm Gran Pct Auto 0.2 % (0.0-0.4); Lymphocytes Absolute Auto 2.5 X10*3/uL (1.2-4.9); Lymphocytes Percent Auto 27.8 % (20-40); Mean Corpuscular HGB Conc 33.8 g/dl (31.0-35.0); Mean Corpuscular Hemoglobin 29.2 pg (27.0-33.0); Mean Corpuscular Volume 86.4 fL (80.0-98.0); Monocytes Absolute Auto 0.7 X10*3/uL (0.1-1.2); Monocytes Percent Auto 7.6 % (2-11); Neutrophils Absolute Auto 5.5 x10*3/uL (2.0-8.3); Neutrophils Percent Auto 60.7 % (45-73); Platelet Count 195 X10*3/uL (160-400); Red Blood Count 4.55 X10*6/uL (4.20-5.50); Red Cell Distribution Width 12.7 % (11.0-16.0); White Blood Count 9.1 X10*3/uL (4.8-10.8)
[2023-10-22 00:21] LABS: IDNOW Serial# 6674DD1D; Strep A Nucleic Acid Negative (Negative)
[2023-10-22 00:21] LABS: Alanine Aminotransferase 16 U/L (0-31); Alkaline Phosphatase 90 U/L (39-117); Anion Gap 10 (12-20); Aspartate Amino Transferase 15 U/L (5-31); Bilirubin Total 0.3 mg/dL (0.0-1.0); Blood Urea Nitrogen 18 mg/dL (9-16); Calcium 8.9 mg/dL (8.4-10.2); Carbon Dioxide 29 mmol/L (22-29); Chloride 105 mmol/L (96-108); Creatinine Clr Calc Pharmacy 69.6; Estimated Glomerular Filt Rate > 60; Glucose Random 167 mg/dL (60-115); Potassium 3.6 mmol/L (3.3-5.1); Sodium 140 mmol/L (135-145); Total Protein 6.6 g/dL (6.5-8.0)
[2023-10-22 00:46] LABS: Influenza A PCR NEGATIVE (Negative); Influenza B PCR NEGATIVE (Negative); Resp Syncy Virus RNA Qual PCR NEGATIVE (Negative); SARS COV2 PCR INHOUSE NEGATIVE (Negative)
--- NOTE | 2023-10-22 02:06 | ED_ITS ---
HPI - Skin/Abscess/Foreign Bdy General Chief complaint: Skin/Abscess/Foreign Body Stated complaint: sore throat- green infection, abscess inner thigh Time Seen by Provider: 10/22/23 01:53 Source: patient Mode of arrival: ambulatory Limitations: no limitations History of Present Illness HPI narrative: 62-year-old female with a history GERD, DVT, asthma, high cholesterol, depression, anxiety, diabetes, dyslipidemia, multiple recurrent abscesses secondary to hidradenitis who presents emergency department for evaluation of sore throat and an abscess to her left inner thigh. The patient states she has had a sore throat for 2 days. The pain is worse with swallowing. She also states she has an abscess to her left inner thigh which initially drained green purulent material but is now sealed up. She states that the area of the abscess is extremely painful and is consistent with her hidradenitis. Patient states she has had fever and chills. She denied nausea, vomiting or diarrhea. Related Data Home Medications ?Medication ?Instructions ?Recorded ?Confirmed hydrochlorothiazide 12.5 mg capsule 12.5 mg PO DAILY 05/09/20 09/27/23 hydroxyzine HCl 25 mg tablet 50 mg PO BEDTIME 06/04/20 09/27/23 sertraline 100 mg tablet 1 tab PO BEDTIME 10/20/21 09/27/23 tizanidine 4 mg tablet 1 tab PO BEDTIME PRN Pain 10/20/21 09/27/23 ferrous sulfate 325 mg (65 mg 325 mg PO DAILY 06/01/22 09/27/23 iron) tablet,delayed release cyanocobalamin (vitamin B-12) 1,000 mcg PO QAM 06/03/22 09/27/23 1,000 mcg tablet metformin 500 mg tablet,extended 500 mg PO BID 06/03/22 09/27/23 release 24 hr albuterol sulfate 90 mcg/actuation 2 puff inhalation Q4-6H PRN 08/25/23 09/27/23 aerosol inhaler Shortness Of Breath Or Wheezing oxycodone 5 mg tablet 5 mg PO Q6H PRN severe pain 09/27/23 09/27/23 pramipexole 0.5 mg tablet 0.5 mg PO TID 09/27/23 09/27/23 zolpidem 5 mg tablet 5 mg PO BEDTIME PRN insomnia 09/27/23 09/27/23 Previous Rx's ?Medication ?Instructions ?Recorded cholecalciferol (vitamin D3) 50 50 mcg PO DAILY #30 caps 12/15/20 mcg (2,000 unit) capsule fluticasone propionate 50 2 spray intranasal DAILY #16 grams 06/21/21 mcg/actuation nasal spray,suspension (Flonase Allergy Relief) blood-glucose meter (FreeStyle #1 ea 08/21/21 Lite Meter kit) blood sugar diagnostic (FreeStyle #150 strips 03/30/22 Lite Strips) thiamine HCl (vitamin B1) 100 mg 100 mg PO DAILY #90 tabs 06/07/22 tablet lidocaine 5 % topical patch 1 patch topical DAILY #15 ea 11/10/22 (Lidoderm) cyclobenzaprine 10 mg tablet 10 mg PO Q8H #20 tabs 01/07/23 meclizine 25 mg tablet 25 mg PO TID PRN dizziness #20 tabs 02/11/23 pantoprazole 40 mg tablet,delayed 40 mg PO Q12H #60 tabs 06/07/23 release albuterol sulfate 1.25 mg/3 mL 1.25 mg (3 mL) inhalation QID PRN 06/11/23 solution for nebulization shortness of breath or wheezing #90 mL diclofenac sodium 1 % topical gel 2 g topical BID PRN pain (scale 07/18/23 (Aleve (diclofenac)) score 4-6) #100 grams cephalexin 500 mg capsule 500 mg PO QID 7 days #28 caps 10/22/23 Allergies Allergy/AdvReac Type Severity Reaction Status Date / Time Penicillins Allergy Intermediate HIVES Verified 10/16/23 19:31 sulfamethoxazole Allergy Intermediate BLISTERS- Verified 10/21/23 23:29 [From BACTRIM] DELGADO - NERVE ENDINGS IN HAND/ERYTHEMA MULTIFORM trimethoprim [From BACTRIM] Allergy Intermediate BLISTERS- Verified 10/21/23 23:29 DELGADO - NERVE ENDINGS IN HAND/ERYTHEMA MULTIFORM latex [Latex] Allergy Mild RASH Verified 10/21/23 23:29 theophylline AdvReac Intermediate TACHYCARDIA Verified 10/21/23 23:29 TEGADERM Allergy Intermediate SKIN TEARS Uncoded 09/27/23 16:21 From COMPAZINE AdvReac Severe SEIZURES Uncoded 09/27/23 16:21 Review of Systems 2 Review of Systems: Yes all other systems are reviewed and are negative PMFSH Past Medical History [facility] Narrative: Social history: She does smoke cigarettes. She denies alcohol and drug use. Medical History Abdominal pain Infection of skin due to methicillin resistant Staphylococcus aureus (MRSA) Numbness of right hand COVID-19 Sebaceous cyst Abscess Cubital tunnel syndrome on left Contusion of right ankle Numbness and tingling in left hand Left hand pain Stiffness of left hand joint Emesis Overweight (BMI 25.0-29.9) Borderline diabetes Dyslipidemia Non-toxic multinodular goiter Diabetes type 2, controlled History of restless legs syndrome Anxiety Depression High cholesterol Asthma DVT (deep venous thrombosis) GERD (gastroesophageal reflux disease) Anastomotic ulcer Surgical History H/O removal of cyst (02/03/23) History of removal of cyst (07/28/22) Hx of cholecystectomy History of surgery History of surgery on left wrist Hx of elbow surgery History of excision of epidermal inclusion cyst (03/23/22) Hx of excision of epidermal inclusion cyst (12/25/21) History of excision of mass (10/26/21) S/P trigger finger release History of tooth extraction Hx of hand surgery Hx of esophagogastroduodenoscopy S/P gastric bypass History of hysterectomy Family History Family History Mother Diabetes mellitus CHF (congestive heart failure) Kidney failure Cervical cancer Brother No problems noted. Brother No problems noted. 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 Physical Exam 2 Vital Signs: Vital Signs: Last Vital Signs Temp 97.6 F 10/22/23 02:40 Pulse 64 10/22/23 02:40 Resp 18 10/22/23 02:40 BP 123/80 10/22/23 02:40 Pulse Ox 98 10/22/23 02:40 O2 Del Method Room Air 10/22/23 02:40 BMI result Body Mass Index 26.9 Vital signs were normal Exam: General: Awake, alert in no distress Head: Normocephalic, atraumatic EENT: PERRL, Lids normal, sclera normal, conjunctiva normal, nose normal , ears normal, throat mild erythema, no exudates, uvula is midline, no trismus, no drooling Neck: Supple, no adenopathy Lung: breath sounds symmetric, no wheezing, rales or rhonchi Chest: symmetric movement, nontender Heart: regular rate and rhythm, normal S1, S2 no murmurs or rubs Abdomen: soft, non-tender, nondistended, normal bowel sounds Back: no vertebral tenderness, no CVAT Extremities: There is a 2 x 2 cm abscess to the left inner thigh which is injury with a small area of flocculence in the center, no increased erythema or warmth Neuro: Awake, alert, oriented, normal speech, cranial nerves intact, moves all extremities symmetrically Psych: Pleasant, cooperative Medications Administered Discontinued Medications Generic Name Dose Route Start Last Admin Trade Name Freq PRN Reason Stop Dose Admin Cephalexin HCl 500 mg 10/22/23 02:04 10/22/23 02:26 Cephalexin 500 Mg Capsule PO 10/22/23 02:05 500 mg ONCE ONE Administration Lidocaine HCl 5 ml 10/22/23 02:04 10/22/23 02:27 Lidocaine Hcl 1 % Mpf 5 Ml Vial INFILTRATI 10/22/23 02:05 5 ml ONCE STA Administration Lidocaine HCl 5 ml 10/22/23 02:04 10/22/23 02:26 Lidocaine Hcl 1 % Mpf 5 Ml Vial INFILTRATI 10/22/23 02:05 5 ml ONCE ONE Administration Morphine Sulfate 15 mg 10/22/23 02:04 10/22/23 02:26 Morphine Sulfate Immed Release 15 Mg Tablet PO 10/22/23 02:05 15 mg ONCE ONE Administration Medical Decision Making Medical Decision Making MDM Narrative: 62-year-old female with a history GERD, DVT, asthma, high cholesterol, depression, anxiety, diabetes, dyslipidemia, multiple recurrent abscesses secondary to hidradenitis who presents emergency department for evaluation of sore throat and an abscess to her left inner thigh. Vital signs were normal, patient's throat exam did reveal erythema with no exudates, left thigh does reveal an abscess with induration and flocculence in the center with no significant erythema or increased warmth Differential diagnosis: ?Includes but is not limited to strep throat, viral pharyngitis, abscess, cellulitis, electrolyte abnormalities, anemia Following evaluation was ordered: CBC, CMP, COVID-19, influenza, RSV, rapid strep Patient was initially treated with the following: Morphine 15 mg orally, Keflex 500 mg orally Course: 02:17 My independent interpretation patient's laboratory evaluation as follows: WBC was normal 9100, glucose elevated 167. COVID-19, influenza, RSV negative. Rapid strep negative. I did incise the left thigh lesion however there was no pus expressed from the wound, I did explore the wound with hemostats and with an 18 gauge needle and still I was not able to aspirate any purulent material from the wound. Patient most likely has indurated abscess which drained spontaneously. Patient will be discharged home with prescriptions for Keflex 500 mg 4 times a day for 7 days. She was also advised to take Tylenol 1000 mg every 6 hours and for pain, I did review the patient's [place] patient's prescription monitoring program and the patient received oxycodone on 10/03/2023 for 30 tablets and on 10/12/2023 for oxycodone 30 tablets therefore she was not prescribed any narcotic medications She was given printed and verbal instructions and discharged home Admission/Observation Consideration of admission/observation: Escalation of care including admission/observation considered Lab Data [facility] Lab Attestation statement: I reviewed the patient's lab results. 10/21/23 23:52 10/21/23 23:52 Labs: Lab Results 10/21/23 10/21/23 Range/Units 23:52 23:55 WBC 9.1 (4.8-10.8) X10*3/uL RBC 4.55 (4.20-5.50) X10*6/uL Hgb 13.3 (12.0-16.0) g/dl Hct 39.3 (37.0-47.0) % MCV 86.4 (80.0-98.0) fL MCH 29.2 (27.0-33.0) pg MCHC 33.8 (31.0-35.0) g/dl RDW 12.7 (11.0-16.0) % Plt Count 195 (160-400) X10*3/uL MPV 10.0 (9.4-12.3) fL Immature Gran % (Auto) 0.2 (0.0-0.4) % Neut % (Auto) 60.7 (45-73) % Lymph % (Auto) 27.8 (20-40) % [place] % (Auto) 7.6 (2-11) % Eos % (Auto) 3.1 (0-4) % Baso % (Auto) 0.6 (0-2) % Lymph # (Auto) 2.5 (1.2-4.9) X10*3/uL [place] # (Auto) 0.7 (0.1-1.2) X10*3/uL Eos # (Auto) 0.3 (0.0-0.4) X10*3/uL Baso # (Auto) 0.1 (0.0-0.2) X10*3/uL Abs Immat Gran (auto) 0.02 (0.00-0.03) X10*3/uL Absolute Neuts (auto) 5.5 (2.0-8.3) x10*3/uL Absolute Nucleated RBC 0.000 (0.0-0.012) X10*3/uL Nucleated RBC % (auto) 0.0 (0.0-0.2) /100WBC Sodium 140 (135-145) mmol/L Potassium 3.6 (3.3-5.1) mmol/L Chloride 105 (96-108) mmol/L Carbon Dioxide 29 (22-29) mmol/L Anion Gap 10 L (12-20) BUN 18 H (9-16) mg/dL Creatinine 0.80 (0.5-1.4) mg/dL Estim Creat Clear Calc 69.6 Estimated GFR > 60 Random Glucose 167 H (60-115) mg/dL Calcium 8.9 (8.4-10.2) mg/dL Total Bilirubin 0.3 (0.0-1.0) mg/dL AST 15 (5-31) U/L ALT 16 (0-31) U/L Alkaline Phosphatase 90 (39-117) U/L Total Protein 6.6 (6.5-8.0) g/dL Albumin 4.0 (3.5-5.0) g/dL Influenza Type A (PCR) NEGATIVE (Negative) Influenza Type B (PCR) NEGATIVE (Negative) RSV RNA Qual (PCR) NEGATIVE (Negative) SARS-CoV-2 RNA (RT-PCR) NEGATIVE (Negative) S. pyogenes GrpA ASHA Negative (Negative) Prescription Management I considered prescription management with: Antibiotic Chronic Conditions Patient?s care impacted by: Diabetes Procedures Abscess I/D Site: lower extremity (Inner thigh) Side (if applicable): left Local Anesthetic: lidocaine 1% Amount of anesthesia used (mL): 5 Technique: needle aspiration and incised with blade (#11) Amount of fluid expressed (mL): 0 Sent for culture/gram staining?: Yes Irrigation: No Packing used?: none Discharge Plan Discharge Clinical Impression: Abscess of left thigh, Cellulitis of left thigh Patient Disposition: Home, Self-Care Instructions: Cellulitis (ED) Additional Instructions: Your abscess in your left thigh most likely drained all the pus out of it prior to me cutting into the abscess. Take Keflex (cephalexin) 500 mg pills, 1 pill 3 times a day for 7 days. Take Tylenol (acetaminophen) 2 pills every 6 hours as needed for pain. Follow-up with your doctor in 2 days. Please return to the emergency department if your symptoms get worse or if you develop any symptoms that are concerning to you. Prescriptions: New cephalexin 500 mg capsule 500 mg PO QID 7 Days Qty: 28 0RF No Action cholecalciferol (vitamin D3) 50 mcg (2,000 unit) capsule 50 mcg PO DAILY Qty: 30 11RF (DME) FreeStyle Lite Strips Strip See Rx Instructions .ROUTE .COMPLEX Qty: 150 6RF Dose Instruction: USE TO TEST BLOOD SUGAR TWICE DAILY Rx Instructions: USE TO TEST BLOOD SUGAR TWICE DAILY thiamine HCl (vitamin B1) 100 mg tablet 100 mg PO DAILY Qty: 90 3RF pantoprazole 40 mg tablet,delayed release (DR/EC) 40 mg PO Q12H Qty: 60 6RF hydroxyzine HCl 25 mg tablet 50 mg PO BEDTIME sertraline 100 mg tablet 1 tab PO BEDTIME tizanidine 4 mg tablet 1 tab PO BEDTIME PRN (Reason: Pain) fluticasone propionate [Flonase Allergy Relief] 50 mcg/actuation spray,suspension 2 spray intranasal DAILY Qty: 16 0RF Rx Instructions: administer into each nostril metformin 500 mg tablet extended release 24 hr 500 mg PO BID albuterol sulfate 1.25 mg/3 mL solution for nebulization 1.25 mg inhalation QID PRN (Reason: shortness of breath or wheezing) Qty: 90 0RF albuterol sulfate 90 mcg/actuation Hfa Aerosol Inhaler 2 puff INHALATION Q4-6H PRN (Reason: Shortness Of Breath Or Wheezing) lidocaine [Lidoderm] 5 % adhesive patch,medicated 1 patch topical DAILY Qty: 15 0RF Rx Instructions: leave on most painful area for up to 12 hrs cyclobenzaprine 10 mg tablet 10 mg PO Q8H Qty: 20 0RF meclizine 25 mg tablet 25 mg PO TID PRN (Reason: dizziness) Qty: 20 0RF diclofenac sodium [Aleve (diclofenac)] 1 % gel 2 g topical BID PRN (Reason: pain (scale score 4-6)) Qty: 100 0RF Rx Instructions: apply to single elbow, wrist or hand; for hand includes palm/fingers/back of hand hydrochlorothiazide 12.5 mg capsule 12.5 mg PO DAILY ferrous sulfate 325 mg (65 mg iron) tablet,delayed release (DR/EC) 325 mg PO DAILY (DME) blood-glucose meter [FreeStyle Lite Meter] Kit See Rx Instructions .Route Qty: 1 0RF Rx Instructions: As directed test blood sugar two times a day cyanocobalamin (vitamin B-12) 1,000 mcg tablet 1,000 mcg PO QAM oxycodone 5 mg tablet 5 mg PO Q6H PRN (Reason: severe pain) zolpidem 5 mg tablet 5 mg PO BEDTIME PRN (Reason: insomnia) pramipexole 0.5 mg tablet 0.5 mg PO TID Print Language: Macedonian
[2023-10-22] MEDS: Lidocaine HCl 1 % MPF 5 ML VIAL INFILTRATI ×2 (02:26→02:27)
[2023-10-22] MEDS: Morphine Sulfate Immed Release 15 MG TABLET PO (02:26)
[2023-10-22] MEDS: cephALEXin 500 MG CAPSULE PO (02:26)
[2023-10-22 02:40] VITALS: BP 123/80; PULSE 64; RESP 18; TEMP 36.4; O2SAT 98
--- NOTE | 2023-10-22 02:41 | MHC.EDTECH ---
Assisted with an I&D procedure to patients left groin,wound culture obtained and sent to lab.Dressing applied to area, patient tolerated well,vitals taken. Patient is waiting to be discharged at this time
[2023-10-22 03:36] VITALS: BP 123/80; PULSE 64; RESP 18; TEMP 36.4; O2SAT 98
== END 2023-10-22 03:37 | disposition home or self-care (01) ==
PROVIDERS: Emergency Provider Emergency Medicine Emergency Medical Services; PCP Student in an Organized Health Care Education/Training Program
DX: L02.416 Cutaneous abscess of left lower limb (principal); L03.116 Cellulitis of left lower limb; J02.9 Acute pharyngitis, unspecified; Z20.828 Contact with and (suspected) exposure to other viral communicable diseases; Z11.52 Encounter for screening for COVID-19; E11.9 Type 2 diabetes mellitus without complications; E78.5 Hyperlipidemia, unspecified; Z79.84 Long term (current) use of oral hypoglycemic drugs; Z79.899 Other long term (current) drug therapy
CPT/HCPCS: 0241U; 10060; 80053; 85025; 87070; 87205; 87651; 99284

== ENCOUNTER 2023-10-24 13:14 | Outpatient (REF) | payer MEDICAID, SELFPAY ==
[2023-10-24 15:30] LABS: Influenza A PCR NEGATIVE (Negative); Influenza B PCR NEGATIVE (Negative); Resp Syncy Virus RNA Qual PCR NEGATIVE (Negative); SARS COV2 PCR INHOUSE NEGATIVE (Negative)
== END 2023-10-24 13:15 | disposition home or self-care (01) ==
LOC: HO.CHCLNP 13:14
PROVIDERS: Visit Provider Family Medicine
DX: J06.9 Acute upper respiratory infection, unspecified (principal)
CPT/HCPCS: 0241U

== ENCOUNTER 2023-10-25 10:08 | Outpatient (AMB) | payer MEDICAID, SELFPAY ==
--- NOTE | 2023-10-25 10:16 | MHC.OFFVIS ---
Vital Signs 10/25/23 10:20 Height 5 ft 3 in Weight 153 lb 4 oz BMI 27.1 BP 117/66 Blood Pressure Location Lt brachial Position Sitting Pulse 74 Intake Visit Reasons: Ct-Scan follow-up Intake Note: Patient is seen in office for CT scan results, following lump of the posterior neck. Pt c/o: here for results, and to check an abscess of the inner groin, went to ED and was I&D and is currently on antibiotics CT: 10/05/23 Punch Machine Hand Required: No Jute Bag Clipper: Jute Bag Clipper Present Accompanied by: Self / Same As Patient Allergies Penicillins Allergy (Intermediate, Verified 10/25/23 10:22) HIVES sulfamethoxazole [From BACTRIM] Allergy (Intermediate, Verified 10/25/23 10:22) BLISTERS- DELGADO - NERVE ENDINGS IN HAND/ERYTHEMA MULTIFORM trimethoprim [From BACTRIM] Allergy (Intermediate, Verified 10/25/23 10:22) BLISTERS- DELGADO - NERVE ENDINGS IN HAND/ERYTHEMA MULTIFORM latex [Latex] Allergy (Mild, Verified 10/25/23 10:22) RASH theophylline Adverse Reaction (Intermediate, Verified 10/25/23 10:22) TACHYCARDIA TEGADERM Allergy (Intermediate, Uncoded 10/25/23 10:22) SKIN TEARS From COMPAZINE Adverse Reaction (Severe, Uncoded 10/25/23 10:22) SEIZURES Medication List - Last Reconciled 10/25/23 by Flaco Zambrano MD albuterol sulfate 1.25 mg (3 mL) inhalation QID PRN albuterol sulfate 90 mcg/actuation 2 puffs inhalation Q4-6H PRN blood sugar diagnostic (FreeStyle Lite Strips) USE TO TEST BLOOD SUGAR TWICE DAILY blood-glucose meter (FreeStyle Lite Meter kit) As directed test blood sugar two times a day cholecalciferol (vitamin D3) 50 mcg PO DAILY cyanocobalamin (vitamin B-12) 1,000 mcg PO QAM cyclobenzaprine 10 mg PO Q8H diclofenac sodium 1% (Aleve (diclofenac)) 2 grams topical BID PRN ferrous sulfate 325 mg PO DAILY fluticasone propionate 50 mcg/actuation (Flonase Allergy Relief) 2 sprays intranasal DAILY hydrochlorothiazide 12.5 mg PO DAILY hydroxyzine HCl 50 mg PO BEDTIME lidocaine 5% (Lidoderm) 1 patch topical DAILY meclizine 25 mg PO TID PRN metformin ER 500 mg PO BID oxycodone 5 mg PO Q6H PRN pantoprazole 40 mg PO Q12H pramipexole 0.5 mg PO TID sertraline 1 tab PO BEDTIME thiamine HCl (vitamin B1) 100 mg PO DAILY tizanidine 1 tab PO BEDTIME PRN zolpidem 5 mg PO BEDTIME PRN HPI Comments Details: 62-year-old female returning to review CT of the neck due to persistent pain. Review of the CT of the neck reveals no evidence of infection or inflammatory changes. Postoperative changes are noted with no apparent acute change. In the meantime the patient developed a new abscess in the left groin. An attempt at incision and drainage was performed in the emergency department with some greenish fluid drained. She was placed on oral antibiotics and generally feels improved but continues to have soreness at this location. [facility] Medical History Abdominal pain Infection of skin due to methicillin resistant Staphylococcus aureus (MRSA) Numbness of right hand COVID-19 Sebaceous cyst Abscess Cubital tunnel syndrome on left Contusion of right ankle Numbness and tingling in left hand Left hand pain Stiffness of left hand joint Emesis Overweight (BMI 25.0-29.9) Borderline diabetes Dyslipidemia Non-toxic multinodular goiter Diabetes type 2, controlled History of restless legs syndrome Anxiety Depression High cholesterol Asthma DVT (deep venous thrombosis) GERD (gastroesophageal reflux disease) Anastomotic ulcer Surgical History H/O removal of cyst (02/03/23) History of removal of cyst (07/28/22) Hx of cholecystectomy History of surgery History of surgery on left wrist Hx of elbow surgery History of excision of epidermal inclusion cyst (03/23/22) Hx of excision of epidermal inclusion cyst (12/25/21) History of excision of mass (10/26/21) S/P trigger finger release History of tooth extraction Hx of hand surgery Hx of esophagogastroduodenoscopy S/P gastric bypass History of hysterectomy Family History Mother Diabetes mellitus CHF (congestive heart failure) Kidney failure Cervical cancer Brother No problems noted. Brother No problems noted. 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 Well-healed transverse incision in the posterior neck Extrem Other: Left groin with incision and drainage incision which is clean and intact. Residual inflammatory changes noted but no fluctuance to palpation. No erythema skin. No evidence of an underlying abscess at this time. Upper/lower leg/hip images: 1. Site of inflammatory changes left groin Assessment & Plan Assessment & Plan (1) Posterior neck pain: Comment: Right side Code(s): M54.2 - Cervicalgia Category: Medical Plan Patient returns for follow-up examination and review of CT findings. CT revealed no evidence of underlying abscess or cyst. In the meantime she developed a new cyst in the left groin which was drained in the emergency department. This appears to be improving with no evidence of underlying abscess at this time. She should follow up as needed.
[2023-10-25 10:20] VITALS: BP 117/66; PULSE 74; BMI 27.1
== END 2023-10-25 10:47 | disposition home or self-care (01) ==
PROVIDERS: PCP Student in an Organized Health Care Education/Training Program; Visit Provider Surgery
DX: L02.214 Cutaneous abscess of groin (principal); M54.2 Cervicalgia
CPT/HCPCS: 99213

== ENCOUNTER → 2023-10-25 10:08 | Outpatient (BNVA) | payer MEDICAID, SELFPAY | PROVIDERS: PCP Student in an Organized Health Care Education/Training Program; Visit Provider Surgery | DX: M54.2 Cervicalgia (principal); L72.8 Other follicular cysts of the skin and subcutaneous tissue | CPT/HCPCS: 99212 ==

== ENCOUNTER 2023-10-27 10:27 | Outpatient (AMB) | payer MEDICAID, SELFPAY ==
--- NOTE | 2023-10-27 10:29 | A.OFFVIS_ITS ---
Vital Signs 10/27/23 10:38 Height 5 ft 3 in Weight 154 lb 5.177 oz BMI 27.3 BP 133/68 Blood Pressure Location Lt brachial Position Sitting Pulse 71 Intake Visit Reasons: S/p egd/colon Jak Intake Note: Nayely presents in the office as a follow up EGD and COLO. CC: She states that she is not eating, she is losing weight. She states that she is having nausea and vomiting and occasionally has diarrhea. Research Asst Required: No Allergies Penicillins Allergy (Intermediate, Verified 10/27/23 10:30) HIVES sulfamethoxazole [From BACTRIM] Allergy (Intermediate, Verified 10/27/23 10:30) BLISTERS- DELGADO - NERVE ENDINGS IN HAND/ERYTHEMA MULTIFORM trimethoprim [From BACTRIM] Allergy (Intermediate, Verified 10/27/23 10:30) BLISTERS- DELGADO - NERVE ENDINGS IN HAND/ERYTHEMA MULTIFORM latex [Latex] Allergy (Mild, Verified 10/27/23 10:30) RASH theophylline Adverse Reaction (Intermediate, Verified 10/27/23 10:30) TACHYCARDIA TEGADERM Allergy (Intermediate, Uncoded 10/27/23 10:30) SKIN TEARS From COMPAZINE Adverse Reaction (Severe, Uncoded 10/27/23 10:30) SEIZURES Medication List - Last Reconciled 10/27/23 by Lucy Bradley PA-C albuterol sulfate 1.25 mg (3 mL) inhalation QID PRN albuterol sulfate 90 mcg/actuation 2 puffs inhalation Q4-6H PRN blood sugar diagnostic (FreeStyle Lite Strips) USE TO TEST BLOOD SUGAR TWICE DAILY blood-glucose meter (FreeStyle Lite Meter kit) As directed test blood sugar two times a day cholecalciferol (vitamin D3) 50 mcg PO DAILY cyanocobalamin (vitamin B-12) 1,000 mcg PO QAM cyclobenzaprine 10 mg PO Q8H diclofenac sodium 1% (Aleve (diclofenac)) 2 grams topical BID PRN ferrous sulfate 325 mg PO QAM fluticasone propionate 50 mcg/actuation (Flonase Allergy Relief) 2 sprays intranasal DAILY hydrochlorothiazide 12.5 mg PO DAILY hydroxyzine HCl 50 mg PO BEDTIME lidocaine 5% (Lidoderm) 1 patch topical DAILY meclizine 25 mg PO TID PRN metformin ER 500 mg PO BID oxycodone 5 mg PO Q6H PRN pantoprazole 40 mg PO Q12H pramipexole 0.5 mg PO TID sertraline 1 tab PO BEDTIME thiamine HCl (vitamin B1) 100 mg PO DAILY tizanidine 1 tab PO BEDTIME PRN zolpidem 5 mg PO BEDTIME PRN HPI Comments Details: a 62 y/o female with chronic abdominal pain- f/u after recent EGD/ colonoscopy She has random non specific abdominal pain. She says she takes some vitamins at night and one causes abdominal pain- she is unsure which one- she has a pill box- (? iron)- she does not know She says she has general body pain- as well as left hip pain- and chronic LBP- fibro- so doesnt eat well when she has body aches Recent hip injection- She gets intermittent nausea- no vomiting-further discussion she thinks her symptoms are caused by some of her medications she will discuss with her PCP. No weight loss, fever or chills PFSH Medical History Abdominal pain Infection of skin due to methicillin resistant Staphylococcus aureus (MRSA) Numbness of right hand COVID-19 Sebaceous cyst Abscess Cubital tunnel syndrome on left Contusion of right ankle Numbness and tingling in left hand Left hand pain Stiffness of left hand joint Emesis Overweight (BMI 25.0-29.9) Borderline diabetes Dyslipidemia Non-toxic multinodular goiter Diabetes type 2, controlled History of restless legs syndrome Anxiety Depression High cholesterol Asthma DVT (deep venous thrombosis) GERD (gastroesophageal reflux disease) Anastomotic ulcer Surgical History Hx of colonoscopy H/O removal of cyst (02/03/23) History of removal of cyst (07/28/22) Hx of cholecystectomy History of surgery History of surgery on left wrist Hx of elbow surgery History of excision of epidermal inclusion cyst (03/23/22) Hx of excision of epidermal inclusion cyst (12/25/21) History of excision of mass (10/26/21) S/P trigger finger release History of tooth extraction Hx of hand surgery Hx of esophagogastroduodenoscopy S/P gastric bypass History of hysterectomy Family History Mother Diabetes mellitus CHF (congestive heart failure) Kidney failure Cervical cancer Brother No problems noted. Brother No problems noted. 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 Review of Systems Const All systems reviewed & are unremarkable except as noted in HPI and below GI Reports abdominal pain and Reports nausea Physical Exam Vital Signs: Last Vital Signs Pulse 71 10/27/23 10:38 BP 133/68 10/27/23 10:38 BMI result Body Mass Index 27.3 Const General: comfortable and no acute distress Orientation/consciousness: patient oriented x3 Limitations: no limitations Eyes Sclerae: sclerae normal Resp Effort & Inspection: normal respiratory effort and able to speak in complete sentences Auscultation: clear to auscultation bilaterally, no rales, no rhonchi and no wheezes Cardio Rate: regular rate Rhythm: regular rhythm Heart sounds: S1 normal heart sound present and S2 normal heart sound present GI Palpation (GI): Soft to palpation and nontender Auscultation: normal bowel sounds Skin General skin exam: no rashes or lesions noted Neuro General: patient oriented x3 Extrem General: Yes full ROM Psych Mental Status: mental status grossly normal Speech and movement: Normal speech and movement present Affect: normal affect Attitude: cooperative Thought process: Normal thought process present Results Reviewed Results Reviewed: Impression and Post Procedure Diagnosis: Endoscopy Findings: patulous LES Colonoscopy Findings: polyp internal hemorrhoids diverticular disease tortuous colon Plan: Await Pathology results Repeat Colonoscopy in 5 years due to polyp or earlier if clinically indicated High fiber diet leaflet avoid straining at stool, epsom salts and sitz bath, anusol supps or cream if ongoing symptoms and bx neg then can consider CTe Name: Prerna Groverline Age/Sex: 62/F Attending: Angie Mosquera MD : 1960 Submitted by: Angie Mosquera MD Copies to: Joyce Tapia MD MR #: [id number] Status: [facility] Collected: 08/25/23 Location: [facility] Received: 08/25/23 Diagnosis A. Terminal ileum, biopsy: Terminal ileal mucosa within normal limits. B. Colon, random, biopsy: Colonic mucosa within normal limits. C. Rectum, polypectomy: Tubular adenoma; negative for high-grade dysplasia or carcinoma. D. Small bowel, biopsy: Small intestinal mucosa within normal limits. E. Stomach, pouch, biopsy: Oxyntic mucosa within normal limits; no Helicobacter organisms seen. F. GE junction, biopsy: - Cardiac-type mucosa with mild chronic inactive inflammation; no intestinal metaplasia seen. - Squamous mucosa within normal limits. G. Esophagus, distal, biopsy: Squamous epithelium within normal limits; no inflammation seen. Clinical History Pre-Op Dx: ? colitis, gastroenteritis. Post-Op Dx: Severe diverticulosis, colon polyp, internal hemorrhoids, tortuous colon, patulous LES. Microscopic Description A-G. Microscopic sections examined. No metaplastic changes are seen, supported by AB/PAS stains (D- F); no Helicobacter organisms are seen, supported by H. pylori immunostain (E). Material Received A. Terminal ileum bx's B. Random colon bx's C. Rectal polyp D. Small bowel bx's E. Gastric pouch bx's F. GE junction bx's G. Distal esophagus bx's Gross Description Received in 7 parts. Part A: Received in formalin labeled ?terminal ileum? are 2 gee-pink irregular tissue fragments each Patient: Nayely Grover Age/Sex: 62/F MR#: [id number] Page 1 of 2 Assessment & Plan Assessment & Plan (1) GERD (gastroesophageal reflux disease): Code(s): K21.9 - Gastro-esophageal reflux disease without esophagitis Category: Medical Plan: Continue to avoid culprits (2) Nausea and vomiting: Comment: seemingly depressed- has a 30 y/o disabled child-finance issues,services - she is having difficulty with services Code(s): R11.2 - Nausea with vomiting, unspecified Category: Medical Plan: discuss -psycho therapy- Encouraged meeting with daughters [employer] (3) Diverticulosis: Comment: Letter reviewed Code(s): K57.90 - Diverticulosis of intestine, part unspecified, without perforation or abscess without bleeding Category: Medical Plan: ER protocol foods to avoid- (4) Tubular adenoma: Code(s): D36.9 - Benign neoplasm, unspecified site Category: Medical Plan: 5 years Plan Discussing goal there Patient Instructions: A pleasant seemingly depressed 62-year-old female follows up after EGD colonoscopy Reviewed procedure report, pathology and recommendations Discuss diverticulosis/diverticulitis here protocol Foods to avoid such as nuts, corn, seeds popcorn etc Encouraged meeting with adult protective caseworker Encouraged to call with any questions or concerns. She will call with progress Coding Level of Care Code Est Pt Level 3 (90349) Diagnoses GERD (gastroesophageal reflux disease) K21.9 Nausea and vomiting R11.2 Diverticulosis K57.90 Tubular adenoma D36.9 Time Spent (min) 30
[2023-10-27 10:38] VITALS: BP 133/68; PULSE 71; BMI 27.3
== END 2023-10-27 11:23 | disposition home or self-care (01) ==
PROVIDERS: PCP Student in an Organized Health Care Education/Training Program; Visit Provider Physician Assistant
DX: K21.9 Gastro-esophageal reflux disease without esophagitis (principal); R11.2 Nausea with vomiting, unspecified; K57.90 Diverticulosis of intestine, part unspecified, without perforation or abscess without bleeding; D36.9 Benign neoplasm, unspecified site
CPT/HCPCS: 99213

== ENCOUNTER → 2023-10-27 10:27 | Outpatient (BNVA) | payer MEDICAID, SELFPAY | PROVIDERS: PCP Student in an Organized Health Care Education/Training Program; Visit Provider Physician Assistant | DX: K21.9 Gastro-esophageal reflux disease without esophagitis (principal); R11.2 Nausea with vomiting, unspecified; K57.90 Diverticulosis of intestine, part unspecified, without perforation or abscess without bleeding; Z86.010 Personal history of colon polyps; Z98.890 Other specified postprocedural states | CPT/HCPCS: 99212 ==

== ENCOUNTER 2023-11-29 09:49 | Outpatient (AMB) | payer MEDICAID, SELFPAY ==
--- NOTE | 2023-11-29 10:00 | MHC.OFFVIS ---
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 Patient reports pain has been present for a while that has been recently getting worse. States constant swelling in her knee and ankle that increases with any prolong standing. She has a burning sensation at the anterior aspect of knee and pain with flexion. Her knee has given out a couple of times. States a numbness in her whole leg. She has tried knee bracing however this made her discomfort worse. Finds no relief with Tylenol and very little relief with oxycodone that is prescribed by her PCP. Hx of left hip injection. Allergies Penicillins Allergy (Intermediate, Verified 11/29/23 10:10) HIVES sulfamethoxazole [From BACTRIM] Allergy (Intermediate, Verified 11/29/23 10:10) BLISTERS- DELGADO - NERVE ENDINGS IN HAND/ERYTHEMA MULTIFORM trimethoprim [From BACTRIM] Allergy (Intermediate, Verified 11/29/23 10:10) BLISTERS- DELGADO - NERVE ENDINGS IN HAND/ERYTHEMA MULTIFORM latex [Latex] Allergy (Mild, Verified 11/29/23 10:10) RASH theophylline Adverse Reaction (Intermediate, Verified 11/29/23 10:10) TACHYCARDIA TEGADERM Allergy (Intermediate, Uncoded 11/29/23 10:10) SKIN TEARS From COMPAZINE Adverse Reaction (Severe, Uncoded 11/29/23 10:10) SEIZURES Medication List - Last Reconciled 11/29/23 by Wilson Wright PA-C albuterol sulfate 1.25 mg (3 mL) inhalation QID PRN albuterol sulfate 90 mcg/actuation 2 puffs inhalation Q4-6H PRN blood sugar diagnostic (FreeStyle Lite Strips) USE TO TEST BLOOD SUGAR TWICE DAILY blood-glucose meter (FreeStyle Lite Meter kit) As directed test blood sugar two times a day cholecalciferol (vitamin D3) 50 mcg PO DAILY cyanocobalamin (vitamin B-12) 1,000 mcg PO QAM cyclobenzaprine 10 mg PO Q8H diclofenac sodium 1% (Aleve (diclofenac)) 2 grams topical BID PRN ferrous sulfate 325 mg PO QAM fluticasone propionate 50 mcg/actuation (Flonase Allergy Relief) 2 sprays intranasal DAILY hydrochlorothiazide 12.5 mg PO DAILY hydroxyzine HCl 50 mg PO BEDTIME lidocaine 5% (Lidoderm) 1 patch topical DAILY meclizine 25 mg PO TID PRN metformin ER 500 mg PO BID oxycodone 5 mg PO Q6H PRN pantoprazole 40 mg PO Q12H pramipexole 0.5 mg PO TID sertraline 1 tab PO BEDTIME thiamine HCl (vitamin B1) 100 mg PO DAILY tizanidine 1 tab PO BEDTIME PRN zolpidem 5 mg PO BEDTIME PRN HPI HPI 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 She states she has worsening swelling and pain at the medial aspect of her knee that is aggravated with prolonged standing. She also experiences a burning sensation at the anterior aspect of her knee and pain with flexion. She reports her knee has given out a couple of times as well as numbness in her whole leg. She has tried knee bracing however this made her discomfort worse. She finds no relief with Tylenol and minimal relief with oxycodone prescribed by her PCP. She had left hip injections in the past. She has a history of diabetes, DVT and varicose veins. [facility] Medical History Abdominal pain Infection of skin due to methicillin resistant Staphylococcus aureus (MRSA) Numbness of right hand COVID-19 Sebaceous cyst Abscess Cubital tunnel syndrome on left Contusion of right ankle Numbness and tingling in left hand Left hand pain Stiffness of left hand joint Emesis Overweight (BMI 25.0-29.9) Borderline diabetes Dyslipidemia Non-toxic multinodular goiter Diabetes type 2, controlled History of restless legs syndrome Anxiety Depression High cholesterol Asthma DVT (deep venous thrombosis) GERD (gastroesophageal reflux disease) Anastomotic ulcer Surgical History Hx of colonoscopy H/O removal of cyst (02/03/23) History of removal of cyst (07/28/22) Hx of cholecystectomy History of surgery History of surgery on left wrist Hx of elbow surgery History of excision of epidermal inclusion cyst (03/23/22) Hx of excision of epidermal inclusion cyst (12/25/21) History of excision of mass (10/26/21) S/P trigger finger release History of tooth extraction Hx of hand surgery Hx of esophagogastroduodenoscopy S/P gastric bypass History of hysterectomy Family History Mother Diabetes mellitus CHF (congestive heart failure) Kidney failure Cervical cancer Brother No problems noted. Brother No problems noted. 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 Tenderness along the medial joint line and pes bursa. Full ROM with crepitus. Negative Suma?s. No ligamentous laxity. NVI. She does have bilat lower ext swelling with tenderness along the calf. She states this is chronic in nature. Assessment & Plan Assessment & Plan (1) Pes anserinus bursitis of left knee: Code(s): M70.52 - Other bursitis of knee, left knee Category: Medical (2) Osteoarthritis of left knee: Code(s): M17.12 - Unilateral primary osteoarthritis, left knee Category: Medical Plan We discussed options which include PT, NSAIDs and injections. The patient will defer on the injection today and proceed with PT and NSAIDs. If symptoms persist, the patient will contact me for an injection, otherwise, PRN. I also ordered an US of L/R LE given her history of DVT, persistent swelling and discomfort in the calf. Orders: Orders US venous duplex LE RT Today M79.89 - Other specified soft tissue disorders US venous duplex LE LT Today R60.9 - Edema, unspecified Patient Instructions: Scribed for Ta-Maria Isabel Wright PA-C, by Adán Sanders medical case worker, on 11/29/2023 at 10:00 AM EST.? I, Wilson Wright PA-C, have personally reviewed and agree with the information entered by the scribe. Coding Level of Care Code Est Pt Level 3 (73195) Diagnoses Pes anserinus bursitis of left knee M70.52 Osteoarthritis of left knee M17.12
[2023-11-29 10:10] VITALS: BMI 27.3
== END 2023-11-29 12:17 | disposition home or self-care (01) ==
PROVIDERS: PCP Student in an Organized Health Care Education/Training Program; Visit Provider Physician Assistant
DX: M70.52 Other bursitis of knee, left knee (principal); M17.12 Unilateral primary osteoarthritis, left knee
CPT/HCPCS: 99213

== ENCOUNTER 2023-11-29 15:01 | Outpatient (REF) | payer MEDICAID, SELFPAY ==
--- NOTE | ~2023-11-29 | XR_ITS ---
EXAMINATION: XR KNEE, LEFT CLINICAL INFORMATION: Unilateral primary osteoarthritis left knee. COMPARISON: 02/14/2023 TECHNIQUE: AP standing view of bilateral knees as well as sunrise and lateral views of the left knee. FINDINGS: AP Standing View Right Knee: Mild narrowing of the medial compartment with tiny medial marginal osteophytes in the right knee. Left Knee: Small joint effusion. Mild narrowing of the medial compartment and patellofemoral compartments. Tiny medial marginal and posterior patellar osteophytes. XR/XR knee LT 3V IMPRESSION: Mild degenerative changes in the bilateral knees.
== END 2023-11-29 15:02 | disposition home or self-care (01) ==
LOC: HO.HOSX 15:01
PROVIDERS: Visit Provider Physician Assistant
DX: M70.52 Other bursitis of knee, left knee (principal); M17.12 Unilateral primary osteoarthritis, left knee
CPT/HCPCS: 73562; 99212

== ENCOUNTER 2023-11-30 08:48 | Outpatient (AMB) | payer MEDICAID, SELFPAY ==
--- NOTE | 2023-11-30 08:57 | HO.SPINEOV ---
Intake Visit Reasons: LBP Intake Note: Ms. Grover is here today c/o low back pain that radiates to the hips and legs. Pst Manager Required: No Allergies Penicillins Allergy (Intermediate, Verified 11/30/23 08:58) HIVES sulfamethoxazole [From BACTRIM] Allergy (Intermediate, Verified 11/30/23 08:58) BLISTERS- DELGADO - NERVE ENDINGS IN HAND/ERYTHEMA MULTIFORM trimethoprim [From BACTRIM] Allergy (Intermediate, Verified 11/30/23 08:58) BLISTERS- DELGADO - NERVE ENDINGS IN HAND/ERYTHEMA MULTIFORM latex [Latex] Allergy (Mild, Verified 11/30/23 08:58) RASH theophylline Adverse Reaction (Intermediate, Verified 11/29/23 10:10) TACHYCARDIA TEGADERM Allergy (Intermediate, Uncoded 11/29/23 10:10) SKIN TEARS From COMPAZINE Adverse Reaction (Severe, Uncoded 11/29/23 10:10) SEIZURES Assessment & Plan Assessment & Plan (1) SI (sacroiliac) joint dysfunction: Code(s): M53.3 - Sacrococcygeal disorders, not elsewhere classified Category: Medical Plan Dear colleague Thank you for referring Nayely Grover to the office today with a chief complaint of left-sided back pain radiating to left leg. HPI: This 63-year-old female developed left-sided back pain approximately 2 years ago. The pain progressed over time. The pain is predominantly above the SI joint and radiates to the left hip knee front of her gottlieb. Her knee swells up and she has numbness and tingling on the bottom of her left foot. The right side is unaffected. She is using narcotics for pain control. The pain wakes her up at night. She can not lay on her side. She can not sit or stand for prolonged period of times. 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 Apparently, she was evaluated by Orthopedic surgery for left knee pain. She tried physical therapy and cortisone injection. She was told that cortisone injections are affected the bone that she has not allowed to have any additional injections. PMH: Diabetes, fibromyalgia, asthma, vascular problems, knee and hip pain Medications: Albuterol vitamin D3 vitamin B12, cyclobenzaprine, diclofenac, iron, hydrochlorothiazide, hydroxyzine, meclizine, metformin, oxycodone Allergies: Penicillin, Bactrim, latex Social history: Smokes half pack a day Physical Exam: Pleasant female. This pain on palpation over the left SI joint area. SI joint provocative tests are positive. Straight leg raise produces pain in the SI joint region. No motor deficits. This hypoesthesia of the bottom of the left foot. There is pain on palpation of the left knee. Radiological Studies: MRI done at [facility] on 03/23/2023 shows mild lumbar spondylosis. No significant central stenosis or foraminal stenosis. Impression/Plan: This patient is most likely suffering from an left SI joint dysfunction. She states that her symptoms have significantly increased after her last MRI and therefore I think it is appropriate to repeat the MRI of the lumbar spine to exclude new spinal pathology before I will refer for an SI joint injection. Thank you for allowing me to participate in your patients care. total time spent was 50 minutes in counseling ,coordination of plan, personal review of imaging, surgical decision making and subsequent plan Jarett Messina MD, PhD Spine Fellowship Trained Neurosurgeon Director, [facility] Coding Level of Care Code New Pt Level 4 (83144) Diagnoses SI (sacroiliac) joint dysfunction M53.3
== END 2023-11-30 09:24 | disposition home or self-care (01) ==
PROVIDERS: PCP Student in an Organized Health Care Education/Training Program; Referring Provider Physician Assistant; Visit Provider Neurological Surgery
DX: M53.3 Sacrococcygeal disorders, not elsewhere classified (principal)
CPT/HCPCS: 99204

== ENCOUNTER → 2023-11-30 08:48 | Outpatient (BNVA) | payer MEDICAID, SELFPAY | PROVIDERS: PCP Student in an Organized Health Care Education/Training Program; Visit Provider Neurological Surgery | DX: M53.3 Sacrococcygeal disorders, not elsewhere classified (principal) | CPT/HCPCS: 99202 ==

== ENCOUNTER 2023-12-01 14:37 | Outpatient (REF) | payer MEDICAID, SELFPAY ==
--- NOTE | ~2023-12-01 | US_ITS ---
EXAMINATION: US VENOUS ULTRASOUND WITH DOPPLER LOWER EXTREMITY, BILATERAL CLINICAL INFORMATION: Other specify soft tissue disorders COMPARISON: Ultrasound venous reflux lower extremity right from 08/10/2023 TECHNIQUE: Ultrasound of the deep veins is performed from the hip to the calf with compression sonography and color and pulse Doppler assessment. Spectral analysis with color-flow imaging is performed. FINDINGS: RIGHT: There is normal venous compression and respiratory variation and augmented flow. The visualized common femoral vein, superficial femoral vein, profunda femoral vein, popliteal vein, and the trifurcation region shows no evidence of deep venous thrombosis. There is no significant popliteal fossa cyst. LEFT: There is normal venous compression and respiratory variation and augmented flow. The visualized common femoral vein, superficial femoral vein, profunda femoral vein, popliteal vein, and the trifurcation region shows no evidence of deep venous thrombosis. There is no significant popliteal fossa cyst. Left groin lymph node measuring 0.6 x 2.3 cm. If the patient's symptoms persist, followup ultrasound in 5 days 7 days might be of value to exclude proximal propagation from a non-visualized calf vein. US/US venous duplex LE BI IMPRESSION: 1. No DVT demonstrated in the bilateral lower extremity. 2. Left groin lymph node measuring 0.6 x 2.3 cm.
== END 2023-12-01 14:38 | disposition home or self-care (01) ==
LOC: HO.US 14:37
PROVIDERS: PCP Student in an Organized Health Care Education/Training Program; Visit Provider Physician Assistant
DX: R60.9 Edema, unspecified (principal)
CPT/HCPCS: 93970

== ENCOUNTER 2023-12-08 11:18 | Outpatient (REF) | payer MEDICAID, SELFPAY ==
--- NOTE | ~2023-12-08 | US_ITS ---
EXAMINATION: US SOFT TISSUE HEAD/NECK CLINICAL INFORMATION: Cervical lymphadenopathy. COMPARISON: CT soft tissue neck with contrast 10/05/2023. Thyroid ultrasound 01/22/2021 and 03/29/2018. TECHNIQUE: Linear transducer deleon-scale and color Doppler examination of the right and left zone II neck. FINDINGS: In the right neck, level II, the palpable area indicated by the patient, there is a 1.1 x 0.7 x 0.9 cm round hypoechoic hyperemic focus. Otherwise, there are a few small benign-appearing lymph nodes in the area of the patient's pain/lumps. The largest is a 1.5 x 0.5 x 0.9 cm benign-appearing lymph node with a fatty hilum on the left, level II. US/US soft tiss head and/or neck IMPRESSION: The palpable area indicated by the patient corresponds to a 1.1 cm round hypoechoic hyperemic focus. This is nonspecific in appearance. This could represent a reactive lymph node. Follow-up in 3 months is recommended.
== END 2023-12-08 11:19 | disposition home or self-care (01) ==
LOC: HO.HMGCX 11:18
PROVIDERS: PCP Student in an Organized Health Care Education/Training Program; Visit Provider Internal Medicine
DX: R59.0 Localized enlarged lymph nodes (principal)
CPT/HCPCS: 76536

== ENCOUNTER 2023-12-08 22:53 | Emergency (ER) | payer MEDICAID, SELFPAY ==
--- NOTE | ~2023-12-08 | CT_ITS ---
EXAMINATION: CT ABDOMEN AND PELVIS WITHOUT CONTRAST CLINICAL INFORMATION: Right flank pain COMPARISON: 07/18/2023 TECHNIQUE: Multidetector volumetric imaging was performed from the superior aspect of the liver through the pubic symphysis. Sagittal and coronal reformatted images were obtained on the technologist's workstation. This CT examination was performed using dose optimization techniques as appropriate, variously including the following: *Automated exposure control *Adjustment of mA and/or kV according to patient size (this includes techniques or standardized protocols for targeted exams where dose is matched to indication/reason for exam; i.e. extremities or head) *Use of iterative reconstruction technique DLP: 443 mGy-cm FINDINGS: LUNG BASES: The visualized lung bases are unremarkable. LIVER, GALLBLADDER, AND BILIARY TREE: The liver is normal in size, shape, and attenuation. No focal hepatic lesion or biliary ductal dilatation is identified on this noncontrast exam. Patient is status post cholecystectomy. PANCREAS: Unremarkable. SPLEEN: Unremarkable. ADRENAL GLANDS: Unremarkable. KIDNEYS AND URETERS: No hydronephrosis or obstructing calculus bilaterally. BLADDER: Unremarkable. GASTROINTESTINAL TRACT: Postoperative changes from prior gastric bypass surgery. No evidence of bowel obstruction or significant wall thickening. The appendix is unremarkable. No free fluid or free air is seen. ABDOMINAL WALL: No significant hernia is appreciated. LYMPH NODES: No lymphadenopathy is seen, though assessment is limited in the absence of intravenous contrast. VASCULAR: Mild scattered atherosclerotic calcification. PELVIC VISCERA: Status post hysterectomy. OSSEOUS STRUCTURES: Degenerative changes in the spine. CT/CT abdomen pelvis wo IV con IMPRESSION: No acute findings identified in the abdomen/pelvis. Postoperative changes from prior gastric bypass surgery.
[2023-12-08 23:24] VITALS: BP 118/70; PULSE 76; RESP 18; TEMP 36.6; O2SAT 98; BMI 27.8
[2023-12-09 01:18] LABS: MANUAL DIFF FLAG NO
[2023-12-09 01:19] LABS: Basophils Percent Auto 0.4 % (0-2); Eosinophils Absolute Auto 0.2 X10*3/uL (0.0-0.4); Eosinophils Percent Auto 2.9 % (0-4); Hematocrit 36.3 % (37.0-47.0); Hemoglobin 12.5 g/dl (12.0-16.0); Imm Gran Abs Auto 0.01 X10*3/uL (0.00-0.03); Imm Gran Pct Auto 0.1 % (0.0-0.4); Lymphocytes Absolute Auto 2.5 X10*3/uL (1.2-4.9); Lymphocytes Percent Auto 32.5 % (20-40); Mean Corpuscular HGB Conc 34.4 g/dl (31.0-35.0); Mean Corpuscular Volume 87.1 fL (80.0-98.0); Mean Platelet Volume 9.9 fL (9.4-12.3); Monocytes Absolute Auto 0.4 X10*3/uL (0.1-1.2); Monocytes Percent Auto 5.8 % (2-11); Neutrophils Absolute Auto 4.5 x10*3/uL (2.0-8.3); Neutrophils Percent Auto 58.3 % (45-73); Platelet Count 168 X10*3/uL (160-400); Red Blood Count 4.17 X10*6/uL (4.20-5.50); Red Cell Distribution Width 12.7 % (11.0-16.0); White Blood Count 7.6 X10*3/uL (4.8-10.8)
[2023-12-09 01:36] LABS: Alanine Aminotransferase 16 U/L (0-31); Albumin Level 3.8 g/dL (3.5-5.0); Alkaline Phosphatase 79 U/L (39-117); Anion Gap 9 (12-20); Aspartate Amino Transferase 15 U/L (5-31); Bilirubin Total 0.2 mg/dL (0.0-1.0); Blood Urea Nitrogen 12 mg/dL (9-16); Calcium 9.1 mg/dL (8.4-10.2); Carbon Dioxide 29 mmol/L (22-29); Chloride 107 mmol/L (96-108); Creatinine Clr Calc Pharmacy 68.9; Estimated Glomerular Filt Rate > 60; Glucose Fasting 110 mg/dL (60-99); Potassium 3.4 mmol/L (3.3-5.1); Sodium 142 mmol/L (135-145); Total Protein 6.1 g/dL (6.5-8.0)
[2023-12-09 01:50] LABS: Appearance Urine Clear; Color Urine Dark Yellow; Glucose Urine UA Negative (Negative); Leukocyte Esterase Urine Trace (Negative); Nitrite Urine Negative (Negative); Specific Gravity - Urine >= 1.030 (1.005-1.025); UMIC TRIGGER UACC YES; Urine Blood Negative (Negative); Urine Ketones Trace mg/dL (Negative); Urine Protein Negative (Neg-Trace)
[2023-12-09 01:55] LABS: Bacteria Urine 1+ (None Seen); Hyaline Casts Urine 0-2 /LPF (0-2); RBC Urine 0-2 /HPF (0-2); WBC Urine 0-5 /HPF (0-5)
--- NOTE | 2023-12-09 02:03 | ED.ABDPAIN ---
HPI - Abdominal Pain General Chief Complaint: Abdominal Pain Stated Complaint: right side pain/kidney? Time Seen by Provider: 12/09/23 01:16 History of Present Illness HPI narrative: Patient is a 63-year-old female presents today with having right kidney pain ongoing for the last 3 days getting worse. Increasing frequency. There has no fever no chills. There has no chest pain or shortness breath no diaphoresis no nausea no vomiting. Patient from home. Status post appendectomy many years ago status post gastric bypass 4 years ago. Frequency. No pain on urination. She is from home. Positive history of kidney stones in the past. Related Data Home Medications ?Medication ?Instructions ?Recorded ?Confirmed hydrochlorothiazide 12.5 mg capsule 12.5 mg PO DAILY 05/09/20 11/29/23 hydroxyzine HCl 25 mg tablet 50 mg PO BEDTIME 06/04/20 11/29/23 sertraline 100 mg tablet 1 tab PO BEDTIME 10/20/21 11/29/23 tizanidine 4 mg tablet 1 tab PO BEDTIME PRN Pain 10/20/21 11/29/23 cyanocobalamin (vitamin B-12) 1,000 mcg PO QAM 06/03/22 11/29/23 1,000 mcg tablet metformin 500 mg tablet,extended 500 mg PO BID 06/03/22 11/29/23 release 24 hr albuterol sulfate 90 mcg/actuation 2 puff inhalation Q4-6H PRN 08/25/23 11/29/23 aerosol inhaler Shortness Of Breath Or Wheezing oxycodone 5 mg tablet 5 mg PO Q6H PRN severe pain 09/27/23 11/29/23 pramipexole 0.5 mg tablet 0.5 mg PO TID 09/27/23 11/29/23 zolpidem 5 mg tablet 5 mg PO BEDTIME PRN insomnia 09/27/23 11/29/23 ferrous sulfate 325 mg (65 mg 325 mg PO QAM 10/27/23 11/29/23 iron) tablet Previous Rx's ?Medication ?Instructions ?Recorded cholecalciferol (vitamin D3) 50 50 mcg PO DAILY #30 caps 12/15/20 mcg (2,000 unit) capsule fluticasone propionate 50 2 spray intranasal DAILY #16 grams 06/21/21 mcg/actuation nasal spray,suspension (Flonase Allergy Relief) blood-glucose meter (FreeStyle #1 ea 08/21/21 Lite Meter kit) blood sugar diagnostic (FreeStyle #150 strips 03/30/22 Lite Strips) thiamine HCl (vitamin B1) 100 mg 100 mg PO DAILY #90 tabs 06/07/22 tablet lidocaine 5 % topical patch 1 patch topical DAILY #15 ea 11/10/22 (Lidoderm) cyclobenzaprine 10 mg tablet 10 mg PO Q8H #20 tabs 01/07/23 meclizine 25 mg tablet 25 mg PO TID PRN dizziness #20 tabs 02/11/23 albuterol sulfate 1.25 mg/3 mL 1.25 mg (3 mL) inhalation QID PRN 06/11/23 solution for nebulization shortness of breath or wheezing #90 mL diclofenac sodium 1 % topical gel 2 g topical BID PRN pain (scale 07/18/23 (Aleve (diclofenac)) score 4-6) #100 grams pantoprazole 40 mg tablet,delayed 40 mg PO Q12H #60 tabs 12/06/23 release Allergies Allergy/AdvReac Type Severity Reaction Status Date / Time Penicillins Allergy Intermediate HIVES Verified 12/08/23 23:28 sulfamethoxazole Allergy Intermediate BLISTERS- Verified 12/08/23 23:28 [From BACTRIM] DELGADO - NERVE ENDINGS IN HAND/ERYTHEMA MULTIFORM trimethoprim [From BACTRIM] Allergy Intermediate BLISTERS- Verified 12/08/23 23:28 DELGADO - NERVE ENDINGS IN HAND/ERYTHEMA MULTIFORM latex [Latex] Allergy Mild RASH Verified 12/08/23 23:28 theophylline AdvReac Intermediate TACHYCARDIA Verified 12/08/23 23:28 TEGADERM Allergy Intermediate SKIN TEARS Uncoded 12/08/23 23:28 From COMPAZINE AdvReac Severe SEIZURES Uncoded 12/08/23 23:28 Review of Systems Review of Systems Positive right flank pain Yes all other systems are reviewed and are negative PMFSH Past Medical History Attestation statement: The following information was validated with the patient. Medical History Abdominal pain Infection of skin due to methicillin resistant Staphylococcus aureus (MRSA) Numbness of right hand COVID-19 Sebaceous cyst Abscess Cubital tunnel syndrome on left Contusion of right ankle Numbness and tingling in left hand Left hand pain Stiffness of left hand joint Emesis Overweight (BMI 25.0-29.9) Borderline diabetes Dyslipidemia Non-toxic multinodular goiter Diabetes type 2, controlled History of restless legs syndrome Anxiety Depression High cholesterol Asthma DVT (deep venous thrombosis) GERD (gastroesophageal reflux disease) Anastomotic ulcer Surgical History Hx of colonoscopy H/O removal of cyst (02/03/23) History of removal of cyst (07/28/22) Hx of cholecystectomy History of surgery History of surgery on left wrist Hx of elbow surgery History of excision of epidermal inclusion cyst (03/23/22) Hx of excision of epidermal inclusion cyst (12/25/21) History of excision of mass (10/26/21) S/P trigger finger release History of tooth extraction Hx of hand surgery Hx of esophagogastroduodenoscopy S/P gastric bypass History of hysterectomy Family History Family History Mother Diabetes mellitus CHF (congestive heart failure) Kidney failure Cervical cancer Brother No problems noted. Brother No problems noted. 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 Oriented X3. No acute distress. Eyes: Pupils equal, round and reactive to light. ENT: Pharynx normal. Neck: Normal inspection. Neck supple. No lymph nodes noted. No crepitus CVS: Normal heart rate and rhythm. Pulses normal. Normal S1 and S2 Respiratory: No respiratory distress. Breath sounds normal. No Wheezing. No rales Abdomen: Soft and nontender. No rigidity. No distention. good BS x4 Skin: Skin warm and dry. Normal skin color. Normal skin turgor. Extremities: No lower extremity edema. Neurovascular intact to all extremities. No Lacerations. No Rash Neuro: Oriented X 3. No motor deficit. No sensory deficit. Moving all extermities. No slurred speech Medical Decision Making Medical Decision Making [facility] Narrative: Patient complaining of pain to the right flank area. Can not get comfortable. Her white count is normal. Hemoglobin is 12.5 there is no evidence for anemia. Patient's electrolytes are normal liver profile is normal urine showed no signs of infection no gross blood. But because of patient's history of kidney stone pain despite moving in every direction CT scan of the abdomen pelvis was done. Radiology's reading of the CT scan showed no evidence of kidney stone. No evidence of obstruction abscess perforation no evidence for diverticulitis. Patient is in stable condition. What patient take Tylenol for pain close follow-up on an outpatient basis Differential Diagnosis Differential Diagnoses: The differential diagnosis associated with the presentation includes Renal colic, diverticulitis, obstruction Admission/Observation Consideration of admission/observation: Escalation of care including admission/observation considered Lab Data [facility] Lab Attestation statement: I reviewed the patient's lab results. 12/09/23 01:13 12/09/23 01:13 Labs: Lab Results 12/09/23 12/09/23 Range/Units 01:13 01:43 WBC 7.6 (4.8-10.8) X10*3/uL RBC 4.17 L (4.20-5.50) X10*6/uL Hgb 12.5 (12.0-16.0) g/dl Hct 36.3 L (37.0-47.0) % MCV 87.1 (80.0-98.0) fL MCH 30.0 (27.0-33.0) pg MCHC 34.4 (31.0-35.0) g/dl RDW 12.7 (11.0-16.0) % Plt Count 168 (160-400) X10*3/uL MPV 9.9 (9.4-12.3) fL Immature Gran % (Auto) 0.1 (0.0-0.4) % Neut % (Auto) 58.3 (45-73) % Lymph % (Auto) 32.5 (20-40) % [place] % (Auto) 5.8 (2-11) % Eos % (Auto) 2.9 (0-4) % Baso % (Auto) 0.4 (0-2) % Lymph # (Auto) 2.5 (1.2-4.9) X10*3/uL [place] # (Auto) 0.4 (0.1-1.2) X10*3/uL Eos # (Auto) 0.2 (0.0-0.4) X10*3/uL Baso # (Auto) 0.0 (0.0-0.2) X10*3/uL Abs Immat Gran (auto) 0.01 (0.00-0.03) X10*3/uL Absolute Neuts (auto) 4.5 (2.0-8.3) x10*3/uL Absolute Nucleated RBC 0.000 (0.0-0.012) X10*3/uL Nucleated RBC % (auto) 0.0 (0.0-0.2) /100WBC Sodium 142 (135-145) mmol/L Potassium 3.4 (3.3-5.1) mmol/L Chloride 107 (96-108) mmol/L Carbon Dioxide 29 (22-29) mmol/L Anion Gap 9 L (12-20) BUN 12 (9-16) mg/dL Creatinine 0.81 (0.5-1.4) mg/dL Estim Creat Clear Calc 68.9 Estimated GFR > 60 Fasting Glucose 110 H (60-99) mg/dL Calcium 9.1 (8.4-10.2) mg/dL Total Bilirubin 0.2 (0.0-1.0) mg/dL AST 15 (5-31) U/L ALT 16 (0-31) U/L Alkaline Phosphatase 79 (39-117) U/L Total Protein 6.1 L (6.5-8.0) g/dL Albumin 3.8 (3.5-5.0) g/dL Urine Color Dark Yellow Urine Appearance Clear Urine pH 6.0 (5.0-9.0) Ur Specific [place] >= 1.030 H (1.005-1.025) Urine Protein Negative (Neg-Trace) mg/dL Urine Glucose (UA) Negative (Negative) mg/dL Urine Ketones Trace (Negative) mg/dL Urine Blood Negative (Negative) Urine Nitrite Negative (Negative) Ur Leukocyte Esterase Trace H (Negative) Urine RBC 0-2 (0-2) /HPF Urine WBC 0-5 (0-5) /HPF Ur Squamous Epith Cells 3-5 (0-2) /HPF Urine Bacteria 1+ (None Seen) Hyaline Casts 0-2 (0-2) /LPF Independent Interpretation I performed an independent interpretation of an: CT Scan (Grossly negative) Radiology Impression Discussion of test interpretation with radiology: I have reviewed the radiologist's reading. Chronic Conditions Restless leg, status post gastric bypass Medications Administered Discontinued Medications Generic Name Dose Route Start Last Admin Trade Name Freq PRN Reason Stop Dose Admin Sodium Chloride 1,000 mls @ 999 mls/hr 12/09/23 02:15 12/09/23 03:24 Ns IV 12/09/23 03:15 Infused .Q1H1M CHARITY Infusion Ketorolac Tromethamine 30 mg 12/09/23 02:02 12/09/23 02:23 Ketorolac Tromethamine 30 Mg/Ml Vial IVPUSH 12/09/23 02:03 30 mg ONCE ONE Administration Discharge Plan Discharge Clinical Impression: Acute flank pain Patient Disposition: Home, Self-Care Instructions: Flank Pain (ED) Prescriptions: No Action cholecalciferol (vitamin D3) 50 mcg (2,000 unit) capsule 50 mcg PO DAILY Qty: 30 11RF (DME) FreeStyle Lite Strips Strip See Rx Instructions .ROUTE .COMPLEX Qty: 150 6RF Dose Instruction: USE TO TEST BLOOD SUGAR TWICE DAILY Rx Instructions: USE TO TEST BLOOD SUGAR TWICE DAILY thiamine HCl (vitamin B1) 100 mg tablet 100 mg PO DAILY Qty: 90 3RF pantoprazole 40 mg tablet,delayed release (DR/EC) 40 mg PO Q12H Qty: 60 6RF hydroxyzine HCl 25 mg tablet 50 mg PO BEDTIME sertraline 100 mg tablet 1 tab PO BEDTIME tizanidine 4 mg tablet 1 tab PO BEDTIME PRN (Reason: Pain) fluticasone propionate [Flonase Allergy Relief] 50 mcg/actuation spray,suspension 2 spray intranasal DAILY Qty: 16 0RF Rx Instructions: administer into each nostril metformin 500 mg tablet extended release 24 hr 500 mg PO BID albuterol sulfate 1.25 mg/3 mL solution for nebulization 1.25 mg inhalation QID PRN (Reason: shortness of breath or wheezing) Qty: 90 0RF albuterol sulfate 90 mcg/actuation Hfa Aerosol Inhaler 2 puff INHALATION Q4-6H PRN (Reason: Shortness Of Breath Or Wheezing) lidocaine [Lidoderm] 5 % adhesive patch,medicated 1 patch topical DAILY Qty: 15 0RF Rx Instructions: leave on most painful area for up to 12 hrs cyclobenzaprine 10 mg tablet 10 mg PO Q8H Qty: 20 0RF meclizine 25 mg tablet 25 mg PO TID PRN (Reason: dizziness) Qty: 20 0RF diclofenac sodium [Aleve (diclofenac)] 1 % gel 2 g topical BID PRN (Reason: pain (scale score 4-6)) Qty: 100 0RF Rx Instructions: apply to single elbow, wrist or hand; for hand includes palm/fingers/back of hand hydrochlorothiazide 12.5 mg capsule 12.5 mg PO DAILY (DME) blood-glucose meter [FreeStyle Lite Meter] Kit See Rx Instructions .Route Qty: 1 0RF Rx Instructions: As directed test blood sugar two times a day cyanocobalamin (vitamin B-12) 1,000 mcg tablet 1,000 mcg PO QAM oxycodone 5 mg tablet 5 mg PO Q6H PRN (Reason: severe pain) zolpidem 5 mg tablet 5 mg PO BEDTIME PRN (Reason: insomnia) pramipexole 0.5 mg tablet 0.5 mg PO TID ferrous sulfate 325 mg (65 mg iron) tablet 325 mg PO QAM Referrals: Joyce Tapia MD [Primary Care Provider] - 12/14/23 Print Language: Cambodian
[2023-12-09] MEDS: Ketorolac Tromethamine 30 MG/ML VIAL IVPUSH (02:23)
[2023-12-09] MEDS: 0.9 % Sodium Chloride 1,000 ML 999 ML IV (02:23)
[2023-12-09 04:02] VITALS: BP 115/59; PULSE 78; RESP 12; TEMP 36.4; O2SAT 98
[2023-12-09 05:33] VITALS: BP 112/76; PULSE 70; RESP 14; TEMP 36.4; O2SAT 97
[2023-12-09 05:49] VITALS: BP 112/76; PULSE 70; RESP 14; TEMP 36.4; O2SAT 97
== END 2023-12-09 05:35 | disposition home or self-care (01) ==
PROVIDERS: Emergency Provider Emergency Medicine Emergency Medical Services; PCP Student in an Organized Health Care Education/Training Program
DX: N23 Unspecified renal colic (principal); R35.0 Frequency of micturition; Z98.84 Bariatric surgery status; Z79.899 Other long term (current) drug therapy
CPT/HCPCS: 36415; 74176; 80053; 81001; 85025; 96361; 96374; 99284; J1885

== ENCOUNTER 2023-12-27 08:34 | Emergency (ER) | payer MEDICAID, SELFPAY ==
--- NOTE | ~2023-12-27 | CT_ITS ---
CT ANGIOGRAM NECK WITH CONTRAST CT ANGIOGRAM BRAIN WITH CONTRAST CLINICAL INFORMATION: Left-sided weakness. COMPARISON: CT neck 10/05/2023. TECHNIQUE: Test bolus sequences followed by intravenous administration 70 mL of Omnipaque 350. Helical imaging was performed in the axial plane from the thoracic inlet to the skull vertex. Delayed postcontrast imaging of the head was also performed. The data was processed at the cardiac technologist workstation for generation of MIP sequences. Angled MIPs and volume rendered reformatted images were also generated at an offline 3D workstation under concurrent supervision. Stenoses are assessed in accordance with NASCET criteria unless otherwise indicated. This CT examination was performed using dose optimization techniques as appropriate, variously including the following: *Automated exposure control *Adjustment of mA and/or kV according to patient size (this includes techniques or standardized protocols for targeted exams where dose is matched to indication/reason for exam; i.e. extremities or head) *Use of iterative reconstruction technique FINDINGS: BRAIN: [There is no intracranial hemorrhage, hydrocephalus, extra-axial surface collection, midline shift, or other herniation pattern. Hua to white matter differentiation is diffusely maintained without evidence of an evolved acute territorial infarct. The basilar cisterns are preserved. No significant soft tissue abnormality. No acute osseous abnormality. The paranasal sinuses and the mastoid air cells are well aerated.] CERVICAL SOFT TISSUES AND LUNG APICES: Imaged upper lungs are clear. There are a few small subcentimeter nodules within the left thyroid lobe that are below size criteria for sonographic follow-up. NECK CTA: [There is a classic 3 vessel configuration of the aortic arch. Proximal arch vessels are non-stenotic. Left vertebral artery is dominant. No significant ostial stenosis is visualized on either side. Both vertebral arteries are widely patent throughout their extracranial cervical course. Both common and internal carotid arteries are normal in caliber.] Retropharyngeal course of the proximal right internal carotid artery. BRAIN CTA: [There is normal opacification of major intracranial arteries. No focal flow-limiting stenosis nor discrete proximal large artery occlusion. No aneurysm. Timing of the contrast bolus allows assessment of the major dural venous sinuses, which all opacify normally] CT/CT angio head neck IMPRESSION: No acute intracranial findings. No acute arterial occlusions and no significant arterial stenoses within the head or neck.
[2023-12-27 08:44] VITALS: BP 131/75; PULSE 86; RESP 20; TEMP 36.6; O2SAT 98; BMI 27.1
--- NOTE | 2023-12-27 08:53 | ECG_ITS ---
Test Reason : WEAKNESS Blood Pressure : / mmHG Vent. Rate : 074 BPM Atrial Rate : 074 BPM P-R Int : 168 ms QRS Dur : 074 ms QT Int : 374 ms P-R-T Axes : 031 021 015 degrees QTc Int : 415 ms Normal sinus rhythm Normal ECG When compared with ECG of 16-OCT-2023 19:17, No significant change was found Referred By: Tamiko Gilmore Electronically Signed By:RODNEY CALHOUN MD
--- NOTE | 2023-12-27 08:54 | PC.NURSE ---
This RN approached MD from triage about patient/symptoms, provider did not want this RN to place any orders/scans at this time, pt brought back to main Ed to be further assessed.
--- NOTE | 2023-12-27 09:02 | ED_ITS ---
HPI - Neuro Symptoms/Deficit General Chief Complaint: Neuro Symptoms/Deficit Stated Complaint: Pain L side of body Time Seen by Provider: 12/27/23 08:54 Source: patient and old records reviewed Mode of arrival: ambulatory Limitations: no limitations History of Present Illness ED Provider: JOCE MORGAN Narrative: 63 yo female with PMH of GERD, asthma, HLD, HTN, depression, anxiety, diabetes, hidradenitis suppurativa, prior lap gastric bypass by me with hx of anastomotic ulcer here with c/o watching TV 4 days ago then feeling a weird tingly sensation in her chest so she took and aspirin and ignored it. The next day she developed pain on the L side of her body and now it hurts to move and get up in the AM. She states it is weak. She denies head trauma, blood thinners, neck manipulation or injury. She denies tick bites or recent illness. Onset (ago): day(s) (3) Location: left arm and left leg History of same: No Severity: moderate Quality: constant and other (weak and painful) Relieving factors: rest Exacerbating factors: other (palpation and movement) Context: gradual onset On Anticoagulants: No Associated symptoms: headaches Treatments Prior to Arrival: none Related Data Home Medications ?Medication ?Instructions ?Recorded ?Confirmed hydrochlorothiazide 12.5 mg capsule 12.5 mg PO DAILY 05/09/20 11/29/23 hydroxyzine HCl 25 mg tablet 50 mg PO BEDTIME 06/04/20 11/29/23 sertraline 100 mg tablet 1 tab PO BEDTIME 10/20/21 11/29/23 tizanidine 4 mg tablet 1 tab PO BEDTIME PRN Pain 10/20/21 11/29/23 cyanocobalamin (vitamin B-12) 1,000 mcg PO QAM 06/03/22 11/29/23 1,000 mcg tablet metformin 500 mg tablet,extended 500 mg PO BID 06/03/22 11/29/23 release 24 hr albuterol sulfate 90 mcg/actuation 2 puff inhalation Q4-6H PRN 08/25/23 11/29/23 aerosol inhaler Shortness Of Breath Or Wheezing oxycodone 5 mg tablet 5 mg PO Q6H PRN severe pain 09/27/23 11/29/23 pramipexole 0.5 mg tablet 0.5 mg PO TID 09/27/23 11/29/23 zolpidem 5 mg tablet 5 mg PO BEDTIME PRN insomnia 09/27/23 11/29/23 ferrous sulfate 325 mg (65 mg 325 mg PO QAM 10/27/23 11/29/23 iron) tablet Previous Rx's ?Medication ?Instructions ?Recorded cholecalciferol (vitamin D3) 50 50 mcg PO DAILY #30 caps 12/15/20 mcg (2,000 unit) capsule fluticasone propionate 50 2 spray intranasal DAILY #16 grams 06/21/21 mcg/actuation nasal spray,suspension (Flonase Allergy Relief) blood-glucose meter (FreeStyle #1 ea 08/21/21 Lite Meter kit) blood sugar diagnostic (FreeStyle #150 strips 03/30/22 Lite Strips) thiamine HCl (vitamin B1) 100 mg 100 mg PO DAILY #90 tabs 06/07/22 tablet lidocaine 5 % topical patch 1 patch topical DAILY #15 ea 11/10/22 (Lidoderm) cyclobenzaprine 10 mg tablet 10 mg PO Q8H #20 tabs 01/07/23 meclizine 25 mg tablet 25 mg PO TID PRN dizziness #20 tabs 02/11/23 albuterol sulfate 1.25 mg/3 mL 1.25 mg (3 mL) inhalation QID PRN 06/11/23 solution for nebulization shortness of breath or wheezing #90 mL diclofenac sodium 1 % topical gel 2 g topical BID PRN pain (scale 07/18/23 (Aleve (diclofenac)) score 4-6) #100 grams pantoprazole 40 mg tablet,delayed 40 mg PO Q12H #60 tabs 12/06/23 release Allergies Allergy/AdvReac Type Severity Reaction Status Date / Time Penicillins Allergy Intermediate HIVES Verified 12/27/23 08:50 sulfamethoxazole Allergy Intermediate BLISTERS- Verified 12/27/23 08:50 [From BACTRIM] DELGADO - NERVE ENDINGS IN HAND/ERYTHEMA MULTIFORM trimethoprim [From BACTRIM] Allergy Intermediate BLISTERS- Verified 12/27/23 08:50 [place] - NERVE ENDINGS IN HAND/ERYTHEMA MULTIFORM latex [Latex] Allergy Mild RASH Verified 12/27/23 08:50 theophylline AdvReac Intermediate TACHYCARDIA Verified 12/27/23 08:50 TEGADERM Allergy Intermediate SKIN TEARS Uncoded 12/08/23 23:28 From COMPAZINE AdvReac Severe SEIZURES Uncoded 12/08/23 23:28 Review of Systems 2 Review of Systems: Constitutional : No Fever, No Chills, No Fatigue ENT/Mouth : No sore throat, No Rhinorrhea Eyes: No Eye Pain, No Swelling, No Redness Cardiovascular : No Chest Pain, No SOB, No Dyspnea on Exertion Respiratory : No Cough, No Sputum Gastrointestinal : No Nausea, No Vomiting, No Diarrhea, No abdominal Pain Genitourinary : No Dysuria, No Urinary Frequency, No Hematuria, Musculoskeletal : No joint pain, pos Myalgias, No Joint Swelling Skin : No Skin Lesions, No rash Neuro : pos Weakness, No Numbness, No Dizziness, positive Headache Psych : No Anxiety/Panic, No Depression All other systems reviewed and are negative PMFSH Past Medical History Attestation statement: The following information was validated with the patient. Source: old records reviewed Medical History Abdominal pain Infection of skin due to methicillin resistant Staphylococcus aureus (MRSA) Numbness of right hand COVID-19 Sebaceous cyst Abscess Cubital tunnel syndrome on left Contusion of right ankle Numbness and tingling in left hand Left hand pain Stiffness of left hand joint Emesis Overweight (BMI 25.0-29.9) Borderline diabetes Dyslipidemia Non-toxic multinodular goiter Diabetes type 2, controlled History of restless legs syndrome Anxiety Depression High cholesterol Asthma DVT (deep venous thrombosis) GERD (gastroesophageal reflux disease) Anastomotic ulcer Surgical History Hx of colonoscopy H/O removal of cyst (02/03/23) History of removal of cyst (07/28/22) Hx of cholecystectomy History of surgery History of surgery on left wrist Hx of elbow surgery History of excision of epidermal inclusion cyst (03/23/22) Hx of excision of epidermal inclusion cyst (12/25/21) History of excision of mass (10/26/21) S/P trigger finger release History of tooth extraction Hx of hand surgery Hx of esophagogastroduodenoscopy S/P gastric bypass History of hysterectomy Family History Family History Mother Diabetes mellitus CHF (congestive heart failure) Kidney failure Cervical cancer Brother No problems noted. Brother No problems noted. Social History Social History Household Members: Spouse Are you a primary career development consultant to a significant other at home: No Do you presently have visiting nurse or other home services: No Alcohol intake: former Patient Tobacco Use Status: Former Tobacco user Tobacco use type: Cigarette Cigarette Packs Per Day: 0 Cigarettes Per Day: 1 Years Smoked: 30 Smoked in Last 30 Days: Yes Use of substances other than those prescribed or required for medical reasons: No Advance Directives: Yes Advance Directives on File: No Do you have a plan to hurt others: No Plan Patient : No Current occupational status: employed 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 Oriented X3. No acute distress. Eyes: Pupils equal, round and reactive to light. ENT: Pharynx normal. Neck: Normal inspection. Neck supple. CVS: Normal heart rate and rhythm. Pulses normal. Respiratory: No respiratory distress. Breath sounds normal. Abdomen: Soft and nontender. Skin: Skin warm and dry. Normal skin color. Normal skin turgor. Extremities: No lower extremity edema. No calf ttp Neuro: Oriented X 3. 4/5 LUE and LLE due to pain she has no compensatory pressure into the bed of R heel when trying to raise L heel. CN 2-12 intact Medications Administered Discontinued Medications Generic Name Dose Route Start Last Admin Trade Name Freq PRN Reason Stop Dose Admin Iohexol 70 ml 12/27/23 09:45 12/27/23 09:46 Iohexol 350 Mg/Ml 75 Ml Infus..Btl IV 12/27/23 09:46 70 ml ONCE ONE Administration Medical Decision Making Medical Decision Making MDM Narrative: 63 yo female with PMH of GERD, asthma, HLD, HTN, depression, anxiety, diabetes, hidradenitis suppurativa, prior lap gastric bypass by me with hx of anastomotic ulcer here with c/o L sided pain and weakness - pain is unusual for stroke at this time will obtain basic labs, CTA of head and neck would anticipate to see stroke 3 days out. She is giving poor effort on neuro exam due to pain. Differential Diagnosis Differential Diagnoses: The differential diagnosis associated with the presentation includes MSK pain, atypical stroke, viral syndrome, dissection of vertebral artery Admission/Observation Consideration of admission/observation: Escalation of care including admission/observation considered no acute findings at 72 hours of symptoms this seems pain related she wants to go home and rest stroke seems unlikely Lab Data MDM Lab Attestation statement: I reviewed the patient's lab results. 12/27/23 09:00 12/27/23 09:00 Labs: Lab Results 12/27/23 12/27/23 Range/Units 09:00 10:01 WBC 6.9 (4.8-10.8) X10*3/uL RBC 4.54 (4.20-5.50) X10*6/uL Hgb 13.7 (12.0-16.0) g/dl Hct 39.2 (37.0-47.0) % MCV 86.3 (80.0-98.0) fL MCH 30.2 (27.0-33.0) pg MCHC 34.9 (31.0-35.0) g/dl RDW 12.6 (11.0-16.0) % Plt Count 194 (160-400) X10*3/uL MPV 9.6 (9.4-12.3) fL Immature Gran % (Auto) 0.1 (0.0-0.4) % Neut % (Auto) 67.0 (45-73) % Lymph % (Auto) 22.6 (20-40) % [place] % (Auto) 6.5 (2-11) % Eos % (Auto) 3.2 (0-4) % Baso % (Auto) 0.6 (0-2) % Lymph # (Auto) 1.6 (1.2-4.9) X10*3/uL [place] # (Auto) 0.5 (0.1-1.2) X10*3/uL Eos # (Auto) 0.2 (0.0-0.4) X10*3/uL Baso # (Auto) 0.0 (0.0-0.2) X10*3/uL Abs Immat Gran (auto) 0.01 (0.00-0.03) X10*3/uL Absolute Neuts (auto) 4.6 (2.0-8.3) x10*3/uL Absolute Nucleated RBC 0.000 (0.0-0.012) X10*3/uL Nucleated RBC % (auto) 0.0 (0.0-0.2) /100WBC PT 11.2 (11.1-13.3) SEC INR 0.9 (0.9-1.1) APTT 29.3 (26.0-36.8) SEC Sodium 143 (135-145) mmol/L Potassium 3.6 (3.3-5.1) mmol/L Chloride 106 (96-108) mmol/L Carbon Dioxide 29 (22-29) mmol/L Anion Gap 12 (12-20) BUN 16 (9-16) mg/dL Creatinine 0.82 (0.5-1.4) mg/dL Estim Creat Clear Calc 67.3 Estimated GFR > 60 Random Glucose 173 H (60-115) mg/dL Calcium 9.1 (8.4-10.2) mg/dL Magnesium 2.1 (1.6-2.6) mg/dL Total Bilirubin 0.4 (0.0-1.0) mg/dL Direct Bilirubin 0.2 (0.0-0.5) mg/dL AST 17 (5-31) U/L ALT 17 (0-31) U/L Alkaline Phosphatase 88 (39-117) U/L Total Creatine Kinase 134 (26-140) U/L Troponin I High Sens < 2.7 (<3.5-17.0) ng/L Total Protein 6.4 L (6.5-8.0) g/dL Albumin 3.9 (3.5-5.0) g/dL Lipase 17 (8-78) U/L Urine Color Yellow Urine Appearance Clear Urine pH 6.0 (5.0-9.0) Ur Specific [place] >= 1.030 H (1.005-1.025) Urine Protein Trace (Neg-Trace) mg/dL Urine Glucose (UA) Negative (Negative) mg/dL Urine Ketones Negative (Negative) mg/dL Urine Blood Negative (Negative) Urine Nitrite Negative (Negative) Ur Leukocyte Esterase Negative (Negative) Urine Opiates Screen Not Detected (Not Detect) Ur Buprenorphine Scrn Not Detected (Not Detect) ng/mL Ur Oxycodone Screen Positive H (Not Detect) ng/mL Urine Methadone Screen Not Detected (Not Detect) ng/mL Urine Fentanyl Screen Not Detected (Not Detect) Ur Barbiturates Screen Not Detected (Not Detect) Ur Phencyclidine Scrn Not Detected (Not Detect) Ur Amphetamines Screen Not Detected (Not Detect) U Benzodiazepines Scrn Not Detected (Not Detect) Urine Cocaine Screen Not Detected (Not Detect) U Marijuana (THC) Screen Not Detected (Not Detect) Ethyl Alcohol < 10 mg/dL Independent Interpretation I performed an independent interpretation of an: EKG and CT Scan (normal ) Interpretation: Rate: 74 Rhythm: NSR [place]: normal Normal P waves. Normal LARISSA. Normal QRS complex. ST T wave : no CHELSEY, inverted t waves III qTC: 415 prior studies: no acute ischemia The study has been interpreted contemporaneously by me. . Radiology Impression Discussion of test interpretation with radiology: I have reviewed the radiologist's reading. External Record Review External record reviewed: Inpatient record and Office record NIH Stroke Scale Internal: Initial- Upon Arrival Level of Consciousness: Alert Level of Consciousness Questions: Answers both questions correctly Level of Consciousness Commands: Performs both tasks correctly Best Gaze: Normal Visual: No visual loss Facial Palsy: Normal Motor Arm (Right): No drift Motor Arm (Left): Drift Motor Leg (Right): No drift Motor Leg (Left): Drift Limb Ataxia: Absent Sensory: Normal Best Language: No aphasia Dysarthia: Normal Extinction and Inattention: No abnormality Score: 2 Discharge Plan Discharge Clinical Impression: Myalgia, Weakness Patient Disposition: Home, Self-Care Instructions: Weakness (ED), Musculoskeletal Pain (ED) Additional Instructions: labs reassuring, CTA no stroke and normal vessels please follow up with your doctor return for worsening symptoms or concerns Prescriptions: No Action cholecalciferol (vitamin D3) 50 mcg (2,000 unit) capsule 50 mcg PO DAILY Qty: 30 11RF (DME) FreeStyle Lite Strips Strip See Rx Instructions .ROUTE .COMPLEX Qty: 150 6RF Dose Instruction: USE TO TEST BLOOD SUGAR TWICE DAILY Rx Instructions: USE TO TEST BLOOD SUGAR TWICE DAILY thiamine HCl (vitamin B1) 100 mg tablet 100 mg PO DAILY Qty: 90 3RF pantoprazole 40 mg tablet,delayed release (DR/EC) 40 mg PO Q12H Qty: 60 6RF hydroxyzine HCl 25 mg tablet 50 mg PO BEDTIME sertraline 100 mg tablet 1 tab PO BEDTIME tizanidine 4 mg tablet 1 tab PO BEDTIME PRN (Reason: Pain) fluticasone propionate [Flonase Allergy Relief] 50 mcg/actuation spray,suspension 2 spray intranasal DAILY Qty: 16 0RF Rx Instructions: administer into each nostril metformin 500 mg tablet extended release 24 hr 500 mg PO BID albuterol sulfate 1.25 mg/3 mL solution for nebulization 1.25 mg inhalation QID PRN (Reason: shortness of breath or wheezing) Qty: 90 0RF albuterol sulfate 90 mcg/actuation Hfa Aerosol Inhaler 2 puff INHALATION Q4-6H PRN (Reason: Shortness Of Breath Or Wheezing) lidocaine [Lidoderm] 5 % adhesive patch,medicated 1 patch topical DAILY Qty: 15 0RF Rx Instructions: leave on most painful area for up to 12 hrs cyclobenzaprine 10 mg tablet 10 mg PO Q8H Qty: 20 0RF meclizine 25 mg tablet 25 mg PO TID PRN (Reason: dizziness) Qty: 20 0RF diclofenac sodium [Aleve (diclofenac)] 1 % gel 2 g topical BID PRN (Reason: pain (scale score 4-6)) Qty: 100 0RF Rx Instructions: apply to single elbow, wrist or hand; for hand includes palm/fingers/back of hand hydrochlorothiazide 12.5 mg capsule 12.5 mg PO DAILY (DME) blood-glucose meter [FreeStyle Lite Meter] Kit See Rx Instructions .Route Qty: 1 0RF Rx Instructions: As directed test blood sugar two times a day cyanocobalamin (vitamin B-12) 1,000 mcg tablet 1,000 mcg PO QAM oxycodone 5 mg tablet 5 mg PO Q6H PRN (Reason: severe pain) zolpidem 5 mg tablet 5 mg PO BEDTIME PRN (Reason: insomnia) pramipexole 0.5 mg tablet 0.5 mg PO TID ferrous sulfate 325 mg (65 mg iron) tablet 325 mg PO QAM Print Language: Brazilian
[2023-12-27 09:04] LABS: MANUAL DIFF FLAG NO
[2023-12-27 09:05] VITALS: BP 127/70; PULSE 71; RESP 16; TEMP 36.8; O2SAT 98
[2023-12-27 09:08] LABS: Basophils Percent Auto 0.6 % (0-2); Eosinophils Absolute Auto 0.2 X10*3/uL (0.0-0.4); Eosinophils Percent Auto 3.2 % (0-4); Hematocrit 39.2 % (37.0-47.0); Hemoglobin 13.7 g/dl (12.0-16.0); Imm Gran Abs Auto 0.01 X10*3/uL (0.00-0.03); Imm Gran Pct Auto 0.1 % (0.0-0.4); Lymphocytes Absolute Auto 1.6 X10*3/uL (1.2-4.9); Lymphocytes Percent Auto 22.6 % (20-40); Mean Corpuscular HGB Conc 34.9 g/dl (31.0-35.0); Mean Corpuscular Hemoglobin 30.2 pg (27.0-33.0); Mean Corpuscular Volume 86.3 fL (80.0-98.0); Mean Platelet Volume 9.6 fL (9.4-12.3); Monocytes Absolute Auto 0.5 X10*3/uL (0.1-1.2); Monocytes Percent Auto 6.5 % (2-11); Neutrophils Absolute Auto 4.6 x10*3/uL (2.0-8.3); Platelet Count 194 X10*3/uL (160-400); Red Blood Count 4.54 X10*6/uL (4.20-5.50); Red Cell Distribution Width 12.6 % (11.0-16.0); White Blood Count 6.9 X10*3/uL (4.8-10.8)
[2023-12-27 09:19] LABS: INTERNATIONAL NORM RATIO 0.9 (0.9-1.1); Prothrombin Time 11.2 SEC (11.1-13.3)
[2023-12-27 09:21] LABS: Ethanol < 10 mg/dL
[2023-12-27 09:22] LABS: Partial Thromboplastin Time 29.3 SEC (26.0-36.8)
[2023-12-27 09:24] LABS: Alanine Aminotransferase 17 U/L (0-31); Albumin Level 3.9 g/dL (3.5-5.0); Alkaline Phosphatase 88 U/L (39-117); Anion Gap 12 (12-20); Aspartate Amino Transferase 17 U/L (5-31); Bilirubin Direct 0.2 mg/dL (0.0-0.5); Bilirubin Total 0.4 mg/dL (0.0-1.0); Blood Urea Nitrogen 16 mg/dL (9-16); Calcium 9.1 mg/dL (8.4-10.2); Carbon Dioxide 29 mmol/L (22-29); Chloride 106 mmol/L (96-108); Creatinine Clr Calc Pharmacy 67.3; Estimated Glomerular Filt Rate > 60; Glucose Random 173 mg/dL (60-115); Lipase 17 U/L (8-78); Magnesium 2.1 mg/dL (1.6-2.6); Potassium 3.6 mmol/L (3.3-5.1); Sodium 143 mmol/L (135-145); Total Protein 6.4 g/dL (6.5-8.0)
[2023-12-27] MEDS: iohexoL 350 MG/ML 75 ML INFUS..BTL 70 ML IV (09:46)
[2023-12-27 10:00] VITALS: BP 116/66; PULSE 64; RESP 11; TEMP 36.6; O2SAT 98
[2023-12-27 10:02] LABS: Troponin-I High Sensitivity < 2.7 ng/L (<3.5-17.0)
[2023-12-27 10:25] LABS: Amphetamine Screen Urine Not Detected (Not Detect); Appearance Urine Clear; Barbiturates, Urine Not Detected (Not Detect); Benzodiazepines Screen Urine Not Detected (Not Detect); Buprenorphine Scr Not Detected (Not Detect); Cannabinoid Screen Urine Not Detected (Not Detect); Cocaine Screen Urine Not Detected (Not Detect); Color Urine Yellow; Fentanyl, urine Not Detected (Not Detect); Glucose Urine UA Negative (Negative); Leukocyte Esterase Urine Negative (Negative); Methadone Screen, Urine Not Detected (Not Detect); Nitrite Urine Negative (Negative); Opiate Screen Urine Not Detected (Not Detect); Oxycodone Screen Urine Positive (Not Detect); Phencyclidine Screen Urine Not Detected (Not Detect); Specific Gravity - Urine >= 1.030 (1.005-1.025); Urine Blood Negative (Negative); Urine Ketones Negative (Negative); Urine Protein Trace mg/dL (Neg-Trace)
[2023-12-27 11:32] VITALS: BP 125/69; PULSE 61; RESP 16; TEMP 36.5; O2SAT 96
[2023-12-27] MEDS: Morphine Sulfate 4 MG/ML CARTRIDGE IVPUSH (11:32)
== END 2023-12-27 11:46 | disposition home or self-care (01) ==
PROVIDERS: Emergency Provider Emergency Medicine; PCP Student in an Organized Health Care Education/Training Program
DX: M79.10 Myalgia, unspecified site (principal); R53.1 Weakness; R29.702 NIHSS score 2; R07.89 Other chest pain; M79.602 Pain in left arm; M79.605 Pain in left leg; Z79.899 Other long term (current) drug therapy; Z87.891 Personal history of nicotine dependence
CPT/HCPCS: 36415; 70496; 70498; 80048; 80076; 80307; 81003; 82550; 83690; 83735; 84484; 85025; 85610; 85730; 93005; 96374; 99284; J2270; Q9967

== ENCOUNTER → 2023-12-27 08:53 | Outpatient (BNV) | payer MEDICAID, SELFPAY | PROVIDERS: Emergency Provider Emergency Medicine; PCP Student in an Organized Health Care Education/Training Program; Visit Provider Internal Medicine Cardiovascular Disease | DX: R53.1 Weakness (principal) | CPT/HCPCS: 93010 ==

== ENCOUNTER 2023-12-29 14:44 | Outpatient (REF) | payer MEDICAID, SELFPAY ==
--- NOTE | ~2023-12-29 | MR_ITS ---
EXAMINATION: MR LUMBAR SPINE WITHOUT CONTRAST CLINICAL INFORMATION: Low back pain, SI joint dysfunction. COMPARISON: Lumbar radiographs 03/09/2023, MRI lumbar spine 09/22/2017. TECHNIQUE: MRI of the lumbar spine was obtained using routine sequences without the administration of intravenous contrast. FINDINGS: This examination assumes the presence of 5 lumbar-type vertebral bodies. For the purposes of this examination, the L5-S1 intervertebral disc space is visualized on axial series 5 image 28. The normal lumbar lordosis is preserved. Grade 1 anterolisthesis of L4-L5 and L5-S1 with trace retrolisthesis of T12-L1 and L3-L4. Multilevel Schmorl's nodes are noted. No acute compression deformity. Edema along the posterior elements of L5/S1 extending into the right posterior S1 vertebral body, likely on the basis of advanced degenerative change. The conus medullaris and cauda equina nerve roots are unremarkable; the conus terminates at the level of L1. Partially visualized degenerative changes of the lower thoracic spine without high-grade spinal canal or neural foraminal stenosis. L1-L2: Small left subarticular disc protrusion without significant spinal canal stenosis. The neural foramen are patent. L2-L3: Facet arthropathy. The spinal canal and neural foramen are patent. L3-L4: Eccentric left disc bulge and osteophytic ridging with facet arthropathy and ligamentum flavum redundancy. Mild spinal canal stenosis with narrowing of the lateral recesses. There is [id number] left and moderate right neural foraminal stenosis with impingement of the exiting left greater than right L3 nerve roots. Abutment of the exiting left L3 nerve root in the far lateral space by left extraforaminal disc protrusion. L4-L5: Disc bulge and advanced facet arthropathy with ligamentum flavum redundancy. There is asymmetric narrowing of the left thecal sac secondary to prominent left-sided ligamentum flavum redundancy. Mild spinal canal stenosis. Mild narrowing of the left neural foramen with exiting nerve root abutment by facet arthropathy. L5-S1: Trace disc bulge. Severe facet arthropathy with small bilateral facet joint effusions. Redundancy of the ligamentum flavum. The spinal canal is patent. Mild narrowing of the right greater than left neural foramen. MR/MR lumbar spine wo con IMPRESSION: At L3-L4 there is [id number] left and moderate right neural foraminal stenosis with left greater than right exiting nerve root impingement. Additional areas of mild spinal canal and neural foraminal stenosis as described above. Advanced facet arthropathy in the lower lumbar spine with edema in the posterior elements at L5-S1 extending into the posterior right S1 vertebral body, likely on the basis of advanced degenerative change.
== END 2023-12-29 14:45 | disposition home or self-care (01) ==
LOC: HO.MRI 14:44
PROVIDERS: PCP Student in an Organized Health Care Education/Training Program; Visit Provider Neurological Surgery
DX: M53.3 Sacrococcygeal disorders, not elsewhere classified (principal); M54.50 Low back pain, unspecified; G89.29 Other chronic pain
CPT/HCPCS: 72148

== ENCOUNTER 2024-01-20 22:57 | Emergency (ER) | payer MEDICAID, SELFPAY ==
--- NOTE | ~2024-01-20 | XR_ITS ---
EXAMINATION: XR ELBOW, LEFT CLINICAL INFORMATION: Pain. COMPARISON: None available. TECHNIQUE: AP, lateral, and oblique views of the left elbow. FINDINGS: The bone mineralization is normal. The joint spaces are maintained. No fracture is seen. There is no evidence for joint effusion. There is mild olecranon region soft tissue swelling. XR/XR elbow LT min 3V IMPRESSION: Mild olecranon region soft tissue swelling. No fracture or dislocation seen.
[2024-01-20 23:33] VITALS: BP 112/70; PULSE 80; RESP 16; TEMP 36.7; O2SAT 97; BMI 27.1
--- NOTE | 2024-01-21 00:49 | ED.EXTPRO ---
HPI - Extremity Problem General Chief complaint: Extremity Injury, Upper Stated complaint: L arm pain SX in Jul Time Seen by Provider: 01/21/24 00:22 Source: patient Mode of arrival: ambulatory Limitations: no limitations History of Present Illness ED Provider: ARLEN SANTANA PA-C HPI Narrative: 63 year old female with pmhx significant for GERD, asthma, HDL, HTN, depression, anxiety, diabetes, hidradenitis suppurativa, status post labs gastric bypass with history of anastomotic ulcer presents to the ED today for evaluation of left elbow pain on waking this morning. Patient reports that while taking a shower this morning, she went to wash over her left elbow and had severe pain. States she cannot even touch the area due to the pain. Admits to burning sensation with tingling in her left 4th and 5th digits. She is status post left cubital tunnel release and anterior ulnar nerve transposition. The most recent surgery was performed by Dr. Bautista in July of this year. Denies injury or trauma. Denies fever/ chills, N/V, numbness to the LUE. Related Data Home Medications ?Medication ?Instructions ?Recorded ?Confirmed hydrochlorothiazide 12.5 mg capsule 12.5 mg PO DAILY 05/09/20 11/29/23 hydroxyzine HCl 25 mg tablet 50 mg PO BEDTIME 06/04/20 11/29/23 sertraline 100 mg tablet 1 tab PO BEDTIME 10/20/21 11/29/23 tizanidine 4 mg tablet 1 tab PO BEDTIME PRN Pain 10/20/21 11/29/23 cyanocobalamin (vitamin B-12) 1,000 mcg PO QAM 06/03/22 11/29/23 1,000 mcg tablet metformin 500 mg tablet,extended 500 mg PO BID 06/03/22 11/29/23 release 24 hr albuterol sulfate 90 mcg/actuation 2 puff inhalation Q4-6H PRN 08/25/23 11/29/23 aerosol inhaler Shortness Of Breath Or Wheezing oxycodone 5 mg tablet 5 mg PO Q6H PRN severe pain 09/27/23 11/29/23 pramipexole 0.5 mg tablet 0.5 mg PO TID 09/27/23 11/29/23 zolpidem 5 mg tablet 5 mg PO BEDTIME PRN insomnia 09/27/23 11/29/23 ferrous sulfate 325 mg (65 mg 325 mg PO QAM 10/27/23 11/29/23 iron) tablet Previous Rx's ?Medication ?Instructions ?Recorded cholecalciferol (vitamin D3) 50 50 mcg PO DAILY #30 caps 12/15/20 mcg (2,000 unit) capsule fluticasone propionate 50 2 spray intranasal DAILY #16 grams 06/21/21 mcg/actuation nasal spray,suspension (Flonase Allergy Relief) blood-glucose meter (FreeStyle #1 ea 08/21/21 Lite Meter kit) blood sugar diagnostic (FreeStyle #150 strips 03/30/22 Lite Strips) thiamine HCl (vitamin B1) 100 mg 100 mg PO DAILY #90 tabs 06/07/22 tablet lidocaine 5 % topical patch 1 patch topical DAILY #15 ea 11/10/22 (Lidoderm) cyclobenzaprine 10 mg tablet 10 mg PO Q8H #20 tabs 01/07/23 meclizine 25 mg tablet 25 mg PO TID PRN dizziness #20 tabs 02/11/23 albuterol sulfate 1.25 mg/3 mL 1.25 mg (3 mL) inhalation QID PRN 06/11/23 solution for nebulization shortness of breath or wheezing #90 mL diclofenac sodium 1 % topical gel 2 g topical BID PRN pain (scale 07/18/23 (Aleve (diclofenac)) score 4-6) #100 grams pantoprazole 40 mg tablet,delayed 40 mg PO Q12H #60 tabs 12/06/23 release Allergies Allergy/AdvReac Type Severity Reaction Status Date / Time prochlorperazine Allergy Severe Seizure Verified 01/20/24 23:41 [From Compazine] Penicillins Allergy Intermediate HIVES Verified 01/20/24 23:36 sulfamethoxazole Allergy Intermediate BLISTERS- Verified 01/20/24 23:36 [From BACTRIM] DELGADO - NERVE ENDINGS IN HAND/ERYTHEMA MULTIFORM trimethoprim [From BACTRIM] Allergy Intermediate BLISTERS- Verified 01/20/24 23:36 DELGADO - NERVE ENDINGS IN HAND/ERYTHEMA MULTIFORM latex [Latex] Allergy Mild RASH Verified 01/20/24 23:36 transparent dressing AdvReac Severe Redness of Verified 01/20/24 23:40 [Tegaderm] Skin theophylline AdvReac Intermediate TACHYCARDIA Verified 01/20/24 23:36 [facility] Past Medical History Attestation statement: The following information was validated with the patient. Source: old records reviewed and nursing notes reviewed Medical History Abdominal pain Infection of skin due to methicillin resistant Staphylococcus aureus (MRSA) Numbness of right hand COVID-19 Sebaceous cyst Abscess Cubital tunnel syndrome on left Contusion of right ankle Numbness and tingling in left hand Left hand pain Stiffness of left hand joint Emesis Overweight (BMI 25.0-29.9) Borderline diabetes Dyslipidemia Non-toxic multinodular goiter Diabetes type 2, controlled History of restless legs syndrome Anxiety Depression High cholesterol Asthma DVT (deep venous thrombosis) GERD (gastroesophageal reflux disease) Anastomotic ulcer Surgical History Hx of colonoscopy H/O removal of cyst (02/03/23) History of removal of cyst (07/28/22) Hx of cholecystectomy History of surgery History of surgery on left wrist Hx of elbow surgery History of excision of epidermal inclusion cyst (03/23/22) Hx of excision of epidermal inclusion cyst (12/25/21) History of excision of mass (10/26/21) S/P trigger finger release History of tooth extraction Hx of hand surgery Hx of esophagogastroduodenoscopy S/P gastric bypass History of hysterectomy Family History Family History Mother Diabetes mellitus CHF (congestive heart failure) Kidney failure Cervical cancer Brother No problems noted. Brother No problems noted. 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 Physical Exam Vital Signs: Vital Signs: Last Vital Signs Temp 98.0 F 01/20/24 23:33 Pulse 80 01/20/24 23:33 Resp 16 01/20/24 23:33 BP 112/70 01/20/24 23:33 Pulse Ox 97 01/20/24 23:33 O2 Del Method Room Air 01/20/24 23:33 BMI result Body Mass Index 27.1 Vital signs stable, afebrile Const: General: cooperative, healthy appearing, comfortable and no acute distress Orientation/consciousness: patient oriented x3 Limitations: no limitations HEENT: Head: Yes normal to inspection, Yes No palpable skull fracture present, Yes normocephalic and Yes atraumatic Eyes: General: appearance normal, both eyes and all related structures Sclerae: sclerae normal Pupils: Equal, round and reactive pupils present Neck: Neck: Yes normal visual inspection Resp: Effort & Inspection: normal respiratory effort and able to speak in complete sentences Auscultation: clear to auscultation bilaterally Cardio: Rate: regular rate Rhythm: regular rhythm Back/Spine/Pelvis: Other: No midline spinous tenderness or step off deformity. No paraspinal muscle tenderness. Skin: General skin exam: no rashes or lesions noted Neuro: Other: Strength 5/5 intact throughout. Sensation intact to light touch.? Neurovascular intact distally.? General: patient oriented x3 and moves all extremities Cranial nerves: Yes Equal, round and reactive pupils present Extrem: Other: + left upper extremity without noted swelling or deformity. No overlying skin changes. There is a well-healed scar noted over left olecranon. No overlying signs of infection. No drainage. Full ROM intact to left elbow with some discomfort on flexion. Slightly tender to palpation over olecranon without palpable deformity, crepitus, warmth, fluctuance. 2+ radial and ulnar pulse intact. Information Assurance Analyst strength intact. Sensation intact to light touch. Course Course Course Narrative: 0158-- CBC without leukocytosis or left shift. No anemia. H&H stable. Chemistry without acute electrolyte abnormality requiring intervention. Your x-ray left elbow showing mild olecranon region soft tissue swelling without fracture or dislocation. Dylan wrap applied for compression. she's received oxycodone for pain control which she takes at home. advised to follow up with her orthopedic doctor outpatient. Patient has remained stable throughout ED visit today. Discussed worrisome signs and symptoms and when to return to the ED. All questions answered at this time. Patient is agreeable with disposition and stable for discharge. Medications Administered Discontinued Medications Generic Name Dose Route Start Last Admin Trade Name Thomas PRN Reason Stop Dose Admin Oxycodone HCl 5 mg 01/21/24 00:39 01/21/24 01:06 Oxycodone Hcl Immed Release 5 Mg Tablet PO 01/21/24 00:40 5 mg ONCE ONE Administration Medical Decision Making Medical Decision Making [facility] Narrative: 63 year old female with pmhx significant for GERD, asthma, HDL, HTN, depression, anxiety, diabetes, hidradenitis suppurativa, status post labs gastric bypass with history of anastomotic ulcer presents to the ED today for evaluation of left elbow pain on waking this morning. Vital signs stable, afebrile. She is nontoxic-appearing and in no acute distress. On exam, left upper extremity without noted swelling or deformity. No overlying skin changes. There is a well-healed scar noted over left olecranon. No overlying signs of infection. No drainage. Full ROM intact to left elbow with some discomfort on flexion. Slightly tender to palpation over olecranon without palpable deformity, crepitus, warmth, fluctuance. 2+ radial and ulnar pulse intact. Information Assurance Analyst strength intact. Sensation intact to light touch. Differential diagnosis includes msk sprain/strain, contusion, cubital tunnel syndrome, cervical radiculopathy. Lower suspicion for fracture, dislocation. Unlikely osteomyelitis, compartment syndrome, NV compromise, threat to limb, DVT, arterial occlusion. Plan for basic labs, imaging, pain control, and re-evaluation. Differential Diagnosis Differential Diagnoses: The differential diagnosis associated with the presentation includes as above. Admission/Observation Not indicated. Lab Data [facility] Lab Attestation statement: I reviewed the patient's lab results. as above. 01/21/24 00:53 01/21/24 00:53 Labs: Lab Results 01/21/24 Range/Units 00:53 WBC 7.6 (4.8-10.8) X10*3/uL RBC 4.43 (4.20-5.50) X10*6/uL Hgb 13.3 (12.0-16.0) g/dl Hct 38.2 (37.0-47.0) % MCV 86.2 (80.0-98.0) fL MCH 30.0 (27.0-33.0) pg MCHC 34.8 (31.0-35.0) g/dl RDW 12.3 (11.0-16.0) % Plt Count 186 (160-400) X10*3/uL MPV 9.7 (9.4-12.3) fL Immature Gran % (Auto) 0.3 (0.0-0.4) % Neut % (Auto) 62.3 (45-73) % Lymph % (Auto) 28.8 (20-40) % [place] % (Auto) 5.4 (2-11) % Eos % (Auto) 2.9 (0-4) % Baso % (Auto) 0.3 (0-2) % Lymph # (Auto) 2.2 (1.2-4.9) X10*3/uL [place] # (Auto) 0.4 (0.1-1.2) X10*3/uL Eos # (Auto) 0.2 (0.0-0.4) X10*3/uL Baso # (Auto) 0.0 (0.0-0.2) X10*3/uL Abs Immat Gran (auto) 0.02 (0.00-0.03) X10*3/uL Absolute Neuts (auto) 4.7 (2.0-8.3) x10*3/uL Absolute Nucleated RBC 0.000 (0.0-0.012) X10*3/uL Nucleated RBC % (auto) 0.0 (0.0-0.2) /100WBC Sodium 141 (135-145) mmol/L Potassium 3.5 (3.3-5.1) mmol/L Chloride 104 (96-108) mmol/L Carbon Dioxide 29 (22-29) mmol/L Anion Gap 12 (12-20) BUN 20 H (9-16) mg/dL Creatinine 0.84 (0.5-1.4) mg/dL Estim Creat Clear Calc 65.7 Estimated GFR > 60 Random Glucose 155 H (60-115) mg/dL Calcium 9.3 (8.4-10.2) mg/dL Independent Interpretation I performed an independent interpretation of an: Plain X-Ray Interpretation: XR left elbow with minimal soft tissue swelling, agree with radiologist's interpretation. Radiology Impression Discussion of test interpretation with radiology: I have reviewed the radiologist's reading. Radiologist Impression: EXAMINATION: XR ELBOW, LEFT CLINICAL INFORMATION: Pain. COMPARISON: None available. TECHNIQUE: AP, lateral, and oblique views of the left elbow. FINDINGS: The bone mineralization is normal. The joint spaces are maintained. No fracture is seen. There is no evidence for joint effusion. There is mild olecranon region soft tissue swelling. XR/XR elbow LT min 3V IMPRESSION: Mild olecranon region soft tissue swelling. No fracture or dislocation seen. External Record Review External record reviewed: Inpatient record, Office record, Outpatient record, Prior outpatient labs, Prior outpatient radiology, Primary care record and Outside ED record Prescription Management I considered prescription management with: Pain Medication Social Determinants Patient?s care significantly limited by Social Determinants of Health including: Other Social Determinant of Health Procedures Orthopedic Splinting/Casting Injury #1: Side: left Upper Extremity Injury Location: elbow Upper Extremity Immobilizer: Dylan wrap Critical Care Time Critical Care Time Critical Care Time: No Discharge Plan Discharge Clinical Impression: Elbow pain, left Patient Disposition: Home, Self-Care Instructions: Arm Pain (ED) Additional Instructions: Your blood work today is reassuring. The xray of your left elbow shows minimal soft tissue swelling without acute fracture or dislocation. You were provided with dylan wrap today to help with compression. Utilize RICE therapy - rest, ice, compress, elevate. Please follow up with PCP and ortho doctor this week. Continue taking prescribed oxycodone at home for pain control. Return with new or worsening symptoms. In the case of an emergency call 911. Prescriptions: No Action cholecalciferol (vitamin D3) 50 mcg (2,000 unit) capsule 50 mcg PO DAILY Qty: 30 11RF (DME) FreeStyle Lite Strips Strip See Rx Instructions .ROUTE .COMPLEX Qty: 150 6RF Dose Instruction: USE TO TEST BLOOD SUGAR TWICE DAILY Rx Instructions: USE TO TEST BLOOD SUGAR TWICE DAILY thiamine HCl (vitamin B1) 100 mg tablet 100 mg PO DAILY Qty: 90 3RF pantoprazole 40 mg tablet,delayed release (DR/EC) 40 mg PO Q12H Qty: 60 6RF hydroxyzine HCl 25 mg tablet 50 mg PO BEDTIME sertraline 100 mg tablet 1 tab PO BEDTIME tizanidine 4 mg tablet 1 tab PO BEDTIME PRN (Reason: Pain) fluticasone propionate [Flonase Allergy Relief] 50 mcg/actuation spray,suspension 2 spray intranasal DAILY Qty: 16 0RF Rx Instructions: administer into each nostril metformin 500 mg tablet extended release 24 hr 500 mg PO BID albuterol sulfate 1.25 mg/3 mL solution for nebulization 1.25 mg inhalation QID PRN (Reason: shortness of breath or wheezing) Qty: 90 0RF albuterol sulfate 90 mcg/actuation Hfa Aerosol Inhaler 2 puff INHALATION Q4-6H PRN (Reason: Shortness Of Breath Or Wheezing) lidocaine [Lidoderm] 5 % adhesive patch,medicated 1 patch topical DAILY Qty: 15 0RF Rx Instructions: leave on most painful area for up to 12 hrs cyclobenzaprine 10 mg tablet 10 mg PO Q8H Qty: 20 0RF meclizine 25 mg tablet 25 mg PO TID PRN (Reason: dizziness) Qty: 20 0RF diclofenac sodium [Aleve (diclofenac)] 1 % gel 2 g topical BID PRN (Reason: pain (scale score 4-6)) Qty: 100 0RF Rx Instructions: apply to single elbow, wrist or hand; for hand includes palm/fingers/back of hand hydrochlorothiazide 12.5 mg capsule 12.5 mg PO DAILY (DME) blood-glucose meter [FreeStyle Lite Meter] Kit See Rx Instructions .Route Qty: 1 0RF Rx Instructions: As directed test blood sugar two times a day cyanocobalamin (vitamin B-12) 1,000 mcg tablet 1,000 mcg PO QAM oxycodone 5 mg tablet 5 mg PO Q6H PRN (Reason: severe pain) zolpidem 5 mg tablet 5 mg PO BEDTIME PRN (Reason: insomnia) pramipexole 0.5 mg tablet 0.5 mg PO TID ferrous sulfate 325 mg (65 mg iron) tablet 325 mg PO QAM Referrals: [facility] [place] [facility] [Provider Group] Joyce Tapia MD [Primary Care Provider] - Stand Alone Forms: Work/School Release Print Language: German
[2024-01-21 00:58] LABS: MANUAL DIFF FLAG NO
[2024-01-21 01:01] LABS: Basophils Percent Auto 0.3 % (0-2); Eosinophils Absolute Auto 0.2 X10*3/uL (0.0-0.4); Eosinophils Percent Auto 2.9 % (0-4); Hematocrit 38.2 % (37.0-47.0); Hemoglobin 13.3 g/dl (12.0-16.0); Imm Gran Abs Auto 0.02 X10*3/uL (0.00-0.03); Imm Gran Pct Auto 0.3 % (0.0-0.4); Lymphocytes Absolute Auto 2.2 X10*3/uL (1.2-4.9); Lymphocytes Percent Auto 28.8 % (20-40); Mean Corpuscular HGB Conc 34.8 g/dl (31.0-35.0); Mean Corpuscular Volume 86.2 fL (80.0-98.0); Mean Platelet Volume 9.7 fL (9.4-12.3); Monocytes Absolute Auto 0.4 X10*3/uL (0.1-1.2); Monocytes Percent Auto 5.4 % (2-11); Neutrophils Absolute Auto 4.7 x10*3/uL (2.0-8.3); Neutrophils Percent Auto 62.3 % (45-73); Platelet Count 186 X10*3/uL (160-400); Red Blood Count 4.43 X10*6/uL (4.20-5.50); Red Cell Distribution Width 12.3 % (11.0-16.0); White Blood Count 7.6 X10*3/uL (4.8-10.8)
[2024-01-21] MEDS: oxyCODONE HCl Immed Release 5 MG TABLET PO (01:06)
--- NOTE | 2024-01-21 01:08 | PC.NURSE ---
pt a&ox4, respirations even and unlabored. pt reporting onset of severe left shoulder pain, reports hx of surgery 4 years ago and surgeon recommended work up in the ED. pt unable to move shoulder and noted to have no ROM of extremity. pt noted to have positive CMS. pt denies any injury or trauma to the shoulder. pt medicated per sep for 8/10 pain, tolerated well with water.
[2024-01-21 01:09] LABS: Anion Gap 12 (12-20); Blood Urea Nitrogen 20 mg/dL (9-16); Calcium 9.3 mg/dL (8.4-10.2); Carbon Dioxide 29 mmol/L (22-29); Chloride 104 mmol/L (96-108); Creatinine Clr Calc Pharmacy 65.7; Estimated Glomerular Filt Rate > 60; Glucose Random 155 mg/dL (60-115); Potassium 3.5 mmol/L (3.3-5.1); Sodium 141 mmol/L (135-145)
[2024-01-21 02:08] VITALS: BP 112/70; PULSE 80; RESP 16; TEMP 36.7; O2SAT 97
== END 2024-01-21 02:08 | disposition home or self-care (01) ==
PROVIDERS: Physician Assistant Medical; Emergency Provider Emergency Medicine; PCP Student in an Organized Health Care Education/Training Program
DX: M25.522 Pain in left elbow (principal); Z87.891 Personal history of nicotine dependence
CPT/HCPCS: 36415; 73080; 80048; 85025; 99283; 99284

== ENCOUNTER 2024-02-03 09:36 | Outpatient (AMB) | payer MEDICAID, SELFPAY ==
--- NOTE | 2024-02-03 09:41 | MHC.OFFVIS ---
Intake Visit Reasons: OV- LT knee pain Intake Note: Nayely a 63 year old female who presents today for a follow up of left knee pain. Patient reports she continues to have pain that is getting worse. States yesterday her knee gave out with going down the stairs and is unable to stand back up from a squatting position. Patient describes her pain as a burning sensation and is having cramps in her calf at night. She would like to discuss moving forward with a cortisone injection. Allergies prochlorperazine [From Compazine] Allergy (Severe, Verified 02/03/24 10:03) Seizure Penicillins Allergy (Intermediate, Verified 02/03/24 10:03) HIVES sulfamethoxazole [From BACTRIM] Allergy (Intermediate, Verified 02/03/24 10:03) BLISTERS- DELGADO - NERVE ENDINGS IN HAND/ERYTHEMA MULTIFORM trimethoprim [From BACTRIM] Allergy (Intermediate, Verified 02/03/24 10:03) BLISTERS- DELGADO - NERVE ENDINGS IN HAND/ERYTHEMA MULTIFORM latex [Latex] Allergy (Mild, Verified 02/03/24 10:03) RASH transparent dressing [Tegaderm] Adverse Reaction (Severe, Verified 02/03/24 10:03) Redness of Skin theophylline Adverse Reaction (Intermediate, Verified 02/03/24 10:03) TACHYCARDIA HPI HPI OV- LT knee pain: Details: Nayely is a 63-year-old female who presents today for a follow-up of left knee pain. She reports she continues to experience pain which has been getting worse. She claims that, when she was going down the stairs, her knee giving out and she was unable to stand back up from a squatting position. She reports experiencing a burning sensation in her leg and nighttime cramps in her calf.She would like to discuss moving forward with a cortisone injection. She received a left hip injection in the past with minimal relief. She had an MRI of her lumbar spine and is awaiting the results. She has a history of diabetes. [facility] Medical History Abdominal pain Infection of skin due to methicillin resistant Staphylococcus aureus (MRSA) Numbness of right hand COVID-19 Sebaceous cyst Abscess Cubital tunnel syndrome on left Contusion of right ankle Numbness and tingling in left hand Left hand pain Stiffness of left hand joint Emesis Overweight (BMI 25.0-29.9) Borderline diabetes Dyslipidemia Non-toxic multinodular goiter Diabetes type 2, controlled History of restless legs syndrome Anxiety Depression High cholesterol Asthma DVT (deep venous thrombosis) GERD (gastroesophageal reflux disease) Anastomotic ulcer Surgical History Hx of colonoscopy H/O removal of cyst (02/03/23) History of removal of cyst (07/28/22) Hx of cholecystectomy History of surgery History of surgery on left wrist Hx of elbow surgery History of excision of epidermal inclusion cyst (03/23/22) Hx of excision of epidermal inclusion cyst (12/25/21) History of excision of mass (10/26/21) S/P trigger finger release History of tooth extraction Hx of hand surgery Hx of esophagogastroduodenoscopy S/P gastric bypass History of hysterectomy Family History Mother Diabetes mellitus CHF (congestive heart failure) Kidney failure Cervical cancer Brother No problems noted. Brother No problems noted. 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 Review of Systems Const All systems reviewed & are unremarkable except as noted in HPI and below Physical Exam Const General: cooperative, healthy appearing, comfortable and no acute distress Orientation/consciousness: patient oriented x3 Neck Neck: Yes normal visual inspection and Yes no JVD Chest Chest palpation & inspection: normal inspection of the chest Resp Effort & Inspection: normal respiratory effort Auscultation: clear to auscultation bilaterally, crackles (no), rales (no), rhonchi (no) and wheezes (no) Cardio Jugular venous distension: no JVD Rate: regular rate Rhythm: regular rhythm Heart sounds: S1 normal heart sound present, S2 normal heart sound present, Murmur heart sound present (no) and Rub heart sound present (no) Neuro General: patient oriented x3 Extrem Other: Left knee: Skin intact, no erythema or joint effusion. Tenderness along the medial joint line and pes bursa. Full ROM with crepitus. Negative Suma?s. No ligamentous laxity. NVI. General: Yes normal to inspection, Yes no pedal edema and Yes no calf tenderness Psych Appearance: grossly normal Mental Status: mental status grossly normal Speech and movement: Normal speech and movement present Office Procedures Joint Injection/Aspiration Joint Injection/Aspiration Primary Site: left knee Prep: site was prepped using aseptic technique, ethochloride spray was applied and injection warnings given Injected: 40 mg of, DepoMedrol, with 8 mL of, 1% plain lidocaine and in the joint Approach Used: anterolateral Procedure: The patient tolerated the procedure well and there was some relief with the local anesthesia Coding 46163 - Glenohumeral/Tronchanteric Bursa/Intraarticular Procedure code (CPT) selection complete Assessment & Plan Assessment & Plan (1) Osteoarthritis of left knee: Code(s): M17.12 - Unilateral primary osteoarthritis, left knee Category: Medical Plan We discussed options today, which include cortisone injection. The patient did consent to move forward with the left knee cortisone injection, which was tolerated well. I recommended rest, ice, and elevation and OTC anti-inflammatories as needed for discomfort. If symptoms persist over the next 6-8 weeks, they will contact the office, otherwise as needed. We also discussed their diabetes and the effect the cortisone injection can have on their blood glucose levels; therefore, they will continue to monitor these very closely over the next 72 hours. If there are any concerns, they should report to the ED immediately. Orders: Orders PT Evaluation and Treatment Today M17.12 - Unilateral primary osteoarthritis, left knee Patient Instructions: Scribed for Wilson Wright PA-C, by leif Beaver scribe, on 02/03/2024 at 9:45 AM TIM. Wilson Tilley PA-C, have personally reviewed and agree with the information entered by the scribe. Coding Level of Care Code Est Pt Level 3 (95894) Diagnoses Osteoarthritis of left knee M17.12 CPT Codes Coding - Joint 7: 24627 - Glenohumeral/Tronchanteric Bursa/Intraarticular ([id number])
== END 2024-02-03 10:39 | disposition home or self-care (01) ==
PROVIDERS: PCP Student in an Organized Health Care Education/Training Program; Visit Provider Physician Assistant
DX: M17.12 Unilateral primary osteoarthritis, left knee (principal)
CPT/HCPCS: 20610; 99213

== ENCOUNTER → 2024-02-03 09:36 | Outpatient (BNVA) | payer MEDICAID, SELFPAY | PROVIDERS: PCP Student in an Organized Health Care Education/Training Program; Visit Provider Physician Assistant | DX: M17.12 Unilateral primary osteoarthritis, left knee (principal) | CPT/HCPCS: 20610; 99212; J1010 ==

== ENCOUNTER 2024-02-24 09:50 | Outpatient (AMB) | payer MEDICAID, SELFPAY ==
--- NOTE | 2024-02-24 09:57 | A.SPINEOV_ITS ---
Intake Visit Reasons: MRI follow up Intake Note: Ms. Grover is here today to f/u on the results of MRI. Clinical Data Assistant Required: No Allergies prochlorperazine [From Compazine] Allergy (Severe, Verified 02/03/24 10:03) Seizure Penicillins Allergy (Intermediate, Verified 02/03/24 10:03) HIVES sulfamethoxazole [From BACTRIM] Allergy (Intermediate, Verified 02/03/24 10:03) BLISTERS- DELGADO - NERVE ENDINGS IN HAND/ERYTHEMA MULTIFORM trimethoprim [From BACTRIM] Allergy (Intermediate, Verified 02/03/24 10:03) BLISTERS- DELGADO - NERVE ENDINGS IN HAND/ERYTHEMA MULTIFORM latex [Latex] Allergy (Mild, Verified 02/03/24 10:03) RASH transparent dressing [Tegaderm] Adverse Reaction (Severe, Verified 02/03/24 10:03) Redness of Skin theophylline Adverse Reaction (Intermediate, Verified 02/03/24 10:03) TACHYCARDIA Assessment & Plan Assessment & Plan (1) SI (sacroiliac) joint dysfunction: Code(s): M53.3 - Sacrococcygeal disorders, not elsewhere classified Category: Medical Plan Dear colleague, On 02/24/2024 saw for follow-up Nayely Grover to review her new MRI of the lumbar spine. She suffering from progressive left-sided back pain that radiates into her left leg. I do not see a surgical cause on the MRI of 2022 but because of progression of symptoms I repeated the MRI which is stable and does not show clear nerve root compression explaining her symptoms. In my opinion she is most likely suffering from left SI joint dysfunction. I would like to refer to for a left side SI joint injection. Jarett Messina MD, PhD Spine Fellowship Trained Neurosurgeon Director, [facility] Orders: Referrals Pain Management Referral M53.3 - Sacrococcygeal disorders, not elsewhere classified Coding Level of Care Code Est Pt Level 2 (19055) Diagnoses SI (sacroiliac) joint dysfunction M53.3
== END 2024-02-24 10:45 | disposition home or self-care (01) ==
PROVIDERS: PCP Student in an Organized Health Care Education/Training Program; Referring Provider Student in an Organized Health Care Education/Training Program; Visit Provider Neurological Surgery
DX: M53.3 Sacrococcygeal disorders, not elsewhere classified (principal)
CPT/HCPCS: 99212

== ENCOUNTER → 2024-02-24 09:50 | Outpatient (BNVA) | payer MEDICAID, SELFPAY | PROVIDERS: PCP Student in an Organized Health Care Education/Training Program; Visit Provider Neurological Surgery | DX: M53.3 Sacrococcygeal disorders, not elsewhere classified (principal) | CPT/HCPCS: 99212 ==

== ENCOUNTER 2024-02-28 09:55 | Outpatient (RCR) | payer MEDICAID, SELFPAY ==
--- NOTE | 2024-02-28 10:40 | MHC.PT.EP ---
[facility] [place] [facility] [place] [facility] [place] [facility] [address] Jake Srivastava [address] [phone] F: [phone] F: [phone] F: [phone] F: [phone] Physical Therapy Plan of Care Date of Evaluation: 02/28/24 Date of Surgery: Diagnosis: This is a 63 yo female presenting to skilled PT with a script for OA of L knee. Assessment: This is a 63 yo female presenting to skilled PT with a script for OA of L knee. Patient reporting ongoing pain now for 2 years, progressively getting worse. She states that she has RA and bone on bone. She is being followed by [facility]. She underwent an injection on 02/03/24. Note states: The patient did consent to move forward with the left knee cortisone injection, which was tolerated well. I recommended rest, ice, and elevation and OTC anti-inflammatories as needed for discomfort. If symptoms persist over the next 6-8 weeks, they will contact the office, otherwise as needed. She states that her pain did not improve at all. Pain is located at the anterior knee. Pain is described as sharp, clicking, swelling, gives out, gets stuck . She wears a knee brace/sleeve, oxycodone (does not help for pain). Pain increases with bending, walking, sleeping, straightening her knee, stairs. Of note she was also seen by Dr. Messina on 02/24/24 and his note states: On 02/24/2024 saw for follow-up Nayely Grover to review her new MRI of the lumbar spine. She suffering from progressive left-sided back pain that radiates into her left leg. I do not see a surgical cause on the MRI of 2022 but because of progression of symptoms I repeated the MRI which is stable and does not show clear nerve root compression explaining her symptoms. In my opinion she is most likely suffering from left SI joint dysfunction. I would like to refer to for a left side SI joint injection. Additionally, she also has L hip pain. Assessment reveals pain that ranges from up to a 7/10 at the worst. Patient demos decreased L knee ROM, strength of L LE, TTP at and impaired posture with forward head and rounded shoulders. She demos decreased gait pattern and impaired balance due to gait and pain. Based on functional limitations, impaired QOL and pain tolerance patient is a good candidate for skilled PT 2x/wk for 4wks. 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 Manual therapy to restore motion and function. Therapeutic exercise to improve strength and flexibility. Neuromuscular re-education for posture and balance. Therapeutic activities to return to functional activities of daily living. Electronically signed by: Vilma Billy PT Please sign and return to therapist. Thank you for your referral.
--- NOTE | 2024-03-14 14:23 | MHC.PT.DC ---
[facility] [place] [facility] [place] [facility] [place] [facility] [address] Jake Srivastava 140 [facility] [phone] F: [phone] F: [phone] F: [phone] F: [phone] Physical Therapy Discharge Report Diagnosis: This is a 63 yo female presenting to skilled PT with a script for OA of L knee. Date of Surgery: Date of Evaluation: 02/28/24 Date of Discharge: 03/14/24 Treatments to Date: 1 Cancellations to Date: 0 No Shows to Date: 0 Discharge Status: Visit Non-compliance Discharge Summary: Patient with multiple no shows to appointments. DC to due visit noncompliance Electronically signed by: Vilma Blily PT Please sign and return to therapist. Thank you for your referral.
== END 2024-03-14 14:23 | disposition home or self-care (01) ==
LOC: HO.PTCHIC 09:55
PROVIDERS: PCP Student in an Organized Health Care Education/Training Program; Visit Provider Physician Assistant
DX: M17.12 Unilateral primary osteoarthritis, left knee (principal)
CPT/HCPCS: 97110; 97162

== ENCOUNTER 2024-03-04 23:17 | Emergency (ER) | payer MEDICAID, SELFPAY ==
[2024-03-04 23:21] VITALS: BP 126/73; PULSE 87; RESP 18; TEMP 36.6; O2SAT 97; BMI 27.4
[2024-03-05 01:36] VITALS: BP 117/62; PULSE 72; RESP 16; TEMP 36.5; O2SAT 97
[2024-03-05] MEDS: Lidocaine HCl Viscous 2 % 15 ML SOLUTION MUCOUS MEM (01:46)
[2024-03-05] MEDS: Azithromycin 500 MG TABLET PO (01:46)
[2024-03-05] MEDS: Ketorolac Tromethamine 60 MG/2 ML VIAL IM (02:42)
[2024-03-05 02:45] VITALS: BP 117/62; PULSE 72; RESP 16; TEMP 36.5; O2SAT 97
--- NOTE | 2024-03-05 03:23 | ED_ITS ---
HPI - Dental/Oral General Chief complaint: Dental/Oral Stated complaint: tooth extraction pain Time Seen by Provider: 03/05/24 01:29 Source: patient Mode of arrival: ambulatory Limitations: no limitations History of Present Illness ED Provider: conchita MORGAN Narrative: Patient is status post all lower jaw teeth extraction about 2 weeks ago complaining of pain in the gum since then patient is on oxycodone for chronic pain has spoken to dentist for does not think any infection at this time patient's feel right lower gum is more painful with slight swelling no fever Related Data Home Medications ?Medication ?Instructions ?Recorded ?Confirmed hydrochlorothiazide 12.5 mg capsule 12.5 mg PO DAILY 05/09/20 11/29/23 hydroxyzine HCl 25 mg tablet 50 mg PO BEDTIME 06/04/20 11/29/23 sertraline 100 mg tablet 1 tab PO BEDTIME 10/20/21 11/29/23 tizanidine 4 mg tablet 1 tab PO BEDTIME PRN Pain 10/20/21 11/29/23 cyanocobalamin (vitamin B-12) 1,000 mcg PO QAM 06/03/22 11/29/23 1,000 mcg tablet metformin 500 mg tablet,extended 500 mg PO BID 06/03/22 11/29/23 release 24 hr albuterol sulfate 90 mcg/actuation 2 puff inhalation Q4-6H PRN 08/25/23 11/29/23 aerosol inhaler Shortness Of Breath Or Wheezing oxycodone 5 mg tablet 5 mg PO Q6H PRN severe pain 09/27/23 11/29/23 pramipexole 0.5 mg tablet 0.5 mg PO TID 09/27/23 11/29/23 zolpidem 5 mg tablet 5 mg PO BEDTIME PRN insomnia 09/27/23 11/29/23 ferrous sulfate 325 mg (65 mg 325 mg PO QAM 10/27/23 11/29/23 iron) tablet ondansetron HCl 4 mg tablet 4 mg PO Q12H PRN nausea/vomiting 02/03/24 Previous Rx's ?Medication ?Instructions ?Recorded cholecalciferol (vitamin D3) 50 50 mcg PO DAILY #30 caps 12/15/20 mcg (2,000 unit) capsule fluticasone propionate 50 2 spray intranasal DAILY #16 grams 06/21/21 mcg/actuation nasal spray,suspension (Flonase Allergy Relief) blood-glucose meter (FreeStyle #1 ea 08/21/21 Lite Meter kit) blood sugar diagnostic (FreeStyle #150 strips 03/30/22 Lite Strips) thiamine HCl (vitamin B1) 100 mg 100 mg PO DAILY #90 tabs 06/07/22 tablet lidocaine 5 % topical patch 1 patch topical DAILY #15 ea 11/10/22 (Lidoderm) cyclobenzaprine 10 mg tablet 10 mg PO Q8H #20 tabs 01/07/23 meclizine 25 mg tablet 25 mg PO TID PRN dizziness #20 tabs 02/11/23 albuterol sulfate 1.25 mg/3 mL 1.25 mg (3 mL) inhalation QID PRN 06/11/23 solution for nebulization shortness of breath or wheezing #90 mL diclofenac sodium 1 % topical gel 2 g topical BID PRN pain (scale 07/18/23 (Aleve (diclofenac)) score 4-6) #100 grams pantoprazole 40 mg tablet,delayed 40 mg PO Q12H #60 tabs 12/06/23 release azithromycin 500 mg tablet 500 mg PO DAILY 3 days #3 tabs 03/05/24 (Zithromax TRI-ALEJANDRA) Allergies Allergy/AdvReac Type Severity Reaction Status Date / Time prochlorperazine Allergy Severe Seizure Verified 03/04/24 23:24 [From Compazine] Penicillins Allergy Intermediate HIVES Verified 03/04/24 23:24 sulfamethoxazole Allergy Intermediate BLISTERS- Verified 03/04/24 23:24 [From BACTRIM] DELGADO - NERVE ENDINGS IN HAND/ERYTHEMA MULTIFORM trimethoprim [From BACTRIM] Allergy Intermediate BLISTERS- Verified 03/04/24 23:24 DELGADO - NERVE ENDINGS IN HAND/ERYTHEMA MULTIFORM latex [Latex] Allergy Mild RASH Verified 03/04/24 23:24 transparent dressing AdvReac Severe Redness of Verified 03/04/24 23:24 [Tegaderm] Skin theophylline AdvReac Intermediate TACHYCARDIA Verified 03/04/24 23:24 Review of Systems 2 Review of Systems: Yes all other systems are reviewed and are negative PMFSH Past Medical History Medical History Abdominal pain Infection of skin due to methicillin resistant Staphylococcus aureus (MRSA) Numbness of right hand COVID-19 Sebaceous cyst Abscess Cubital tunnel syndrome on left Contusion of right ankle Numbness and tingling in left hand Left hand pain Stiffness of left hand joint Emesis Overweight (BMI 25.0-29.9) Borderline diabetes Dyslipidemia Non-toxic multinodular goiter Diabetes type 2, controlled History of restless legs syndrome Anxiety Depression High cholesterol Asthma DVT (deep venous thrombosis) GERD (gastroesophageal reflux disease) Anastomotic ulcer Surgical History Hx of colonoscopy H/O removal of cyst (02/03/23) History of removal of cyst (07/28/22) Hx of cholecystectomy History of surgery History of surgery on left wrist Hx of elbow surgery History of excision of epidermal inclusion cyst (03/23/22) Hx of excision of epidermal inclusion cyst (12/25/21) History of excision of mass (10/26/21) S/P trigger finger release History of tooth extraction Hx of hand surgery Hx of esophagogastroduodenoscopy S/P gastric bypass History of hysterectomy Family History Family History Mother Diabetes mellitus CHF (congestive heart failure) Kidney failure Cervical cancer Brother No problems noted. Brother No problems noted. 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 Edentulous mandible post excision sites intact no signs of infection slight tenderness on the lateral aspect of gum on the right side without any fluctuant feeling Medications Administered Discontinued Medications Generic Name Dose Route Start Last Admin Trade Name Thomas PRN Reason Stop Dose Admin Azithromycin 500 mg 03/05/24 01:35 03/05/24 01:46 Azithromycin 500 Mg Tablet PO 03/05/24 01:36 500 mg ONCE ONE Administration Ketorolac Tromethamine 60 mg 03/05/24 02:37 03/05/24 02:42 Ketorolac Tromethamine 60 Mg/2 Ml Vial IM 03/05/24 02:38 60 mg ONCE ONE Administration Lidocaine HCl 15 ml 03/05/24 01:33 03/05/24 01:46 Lidocaine Hcl Viscous 2 % 15 Ml Solution MUCOUS MEM 03/05/24 01:34 15 ml ONCE ONE Administration Medical Decision Making Medical Decision Making [facility] Narrative: Patient with diffuse mandible pain after tooth extraction likely the inflammatory reaction to the procedure no significant signs of infection but patient has more pain in right lower gum so will give a prescription for Zithromax advised to follow up with her dentist Discharge Plan Discharge Clinical Impression: Pain in gums Patient Disposition: Home, Self-Care Instructions: Toothache (ED) Additional Instructions: Follow with a dentist Take antibiotic as prescribed Continue pain medication Apply lidocaine viscous orajel to decrease the pain 3 - 4 times a day Prescriptions: New azithromycin [Zithromax TRI-ALEJANDRA] 500 mg tablet 500 mg PO DAILY 3 Days Qty: 3 0RF No Action cholecalciferol (vitamin D3) 50 mcg (2,000 unit) capsule 50 mcg PO DAILY Qty: 30 11RF (DME) FreeStyle Lite Strips Strip See Rx Instructions .ROUTE .COMPLEX Qty: 150 6RF Dose Instruction: USE TO TEST BLOOD SUGAR TWICE DAILY Rx Instructions: USE TO TEST BLOOD SUGAR TWICE DAILY thiamine HCl (vitamin B1) 100 mg tablet 100 mg PO DAILY Qty: 90 3RF pantoprazole 40 mg tablet,delayed release (DR/EC) 40 mg PO Q12H Qty: 60 6RF hydroxyzine HCl 25 mg tablet 50 mg PO BEDTIME sertraline 100 mg tablet 1 tab PO BEDTIME tizanidine 4 mg tablet 1 tab PO BEDTIME PRN (Reason: Pain) fluticasone propionate [Flonase Allergy Relief] 50 mcg/actuation spray,suspension 2 spray intranasal DAILY Qty: 16 0RF Rx Instructions: administer into each nostril metformin 500 mg tablet extended release 24 hr 500 mg PO BID albuterol sulfate 1.25 mg/3 mL solution for nebulization 1.25 mg inhalation QID PRN (Reason: shortness of breath or wheezing) Qty: 90 0RF albuterol sulfate 90 mcg/actuation Hfa Aerosol Inhaler 2 puff INHALATION Q4-6H PRN (Reason: Shortness Of Breath Or Wheezing) lidocaine [Lidoderm] 5 % adhesive patch,medicated 1 patch topical DAILY Qty: 15 0RF Rx Instructions: leave on most painful area for up to 12 hrs cyclobenzaprine 10 mg tablet 10 mg PO Q8H Qty: 20 0RF meclizine 25 mg tablet 25 mg PO TID PRN (Reason: dizziness) Qty: 20 0RF diclofenac sodium [Aleve (diclofenac)] 1 % gel 2 g topical BID PRN (Reason: pain (scale score 4-6)) Qty: 100 0RF Rx Instructions: apply to single elbow, wrist or hand; for hand includes palm/fingers/back of hand hydrochlorothiazide 12.5 mg capsule 12.5 mg PO DAILY (DME) blood-glucose meter [FreeStyle Lite Meter] Kit See Rx Instructions .Route Qty: 1 0RF Rx Instructions: As directed test blood sugar two times a day cyanocobalamin (vitamin B-12) 1,000 mcg tablet 1,000 mcg PO QAM oxycodone 5 mg tablet 5 mg PO Q6H PRN (Reason: severe pain) zolpidem 5 mg tablet 5 mg PO BEDTIME PRN (Reason: insomnia) pramipexole 0.5 mg tablet 0.5 mg PO TID ferrous sulfate 325 mg (65 mg iron) tablet 325 mg PO QAM ondansetron HCl 4 mg tablet 4 mg PO Q12H PRN (Reason: nausea/vomiting) Interventions: ED Discharge Assessment Last Done: 03/05/24 02:45 Discharge Date/Time: 03/05/24 02:48 Print Language: Thai
== END 2024-03-05 02:48 | disposition home or self-care (01) ==
PROVIDERS: Emergency Provider Internal Medicine; PCP Student in an Organized Health Care Education/Training Program
DX: K05.10 Chronic gingivitis, plaque induced (principal); K13.79 Other lesions of oral mucosa
CPT/HCPCS: 96372; 99283; 99284; J1885

== ENCOUNTER 2024-03-06 14:10 | Outpatient (AMB) | payer MEDICAID, SELFPAY ==
--- NOTE | 2024-03-06 14:24 | MHC.OFFVIS ---
Vital Signs 03/06/24 14:41 Height 5 ft 3 in Weight 154 lb 5.177 oz BMI 27.3 Pulse 68 Intake Visit Reasons: Huge abscess by panty line, rt side Intake Note: Patient is seen in office for hidradenitis of the right groin. Patient c/o:abscess of the right groin for about a week, open wound without discharge, another abscess on the right buttock for a week and no discharge, was on antbx for the past 2 wks due to mouth procedure Bee Raiser Required: No Accompanied by: Self / Same As Patient Allergies prochlorperazine [From Compazine] Allergy (Severe, Verified 03/06/24 14:41) Seizure Penicillins Allergy (Intermediate, Verified 03/06/24 14:41) HIVES sulfamethoxazole [From BACTRIM] Allergy (Intermediate, Verified 03/06/24 14:41) BLISTERS- DELGADO - NERVE ENDINGS IN HAND/ERYTHEMA MULTIFORM trimethoprim [From BACTRIM] Allergy (Intermediate, Verified 03/06/24 14:41) BLISTERS- DELGADO - NERVE ENDINGS IN HAND/ERYTHEMA MULTIFORM latex [Latex] Allergy (Mild, Verified 03/06/24 14:41) RASH transparent dressing [Tegaderm] Adverse Reaction (Severe, Verified 03/06/24 14:41) Redness of Skin theophylline Adverse Reaction (Intermediate, Verified 03/06/24 14:41) TACHYCARDIA Medication List - Last Reconciled 03/06/24 by Flaco Zambrano MD albuterol sulfate 1.25 mg (3 mL) inhalation QID PRN albuterol sulfate 90 mcg/actuation 2 puffs inhalation Q4-6H PRN azithromycin (Zithromax TRI-ALEJANDRA) 500 mg PO DAILY 3 days blood sugar diagnostic (FreeStyle Lite Strips) USE TO TEST BLOOD SUGAR TWICE DAILY blood-glucose meter (FreeStyle Lite Meter kit) As directed test blood sugar two times a day cholecalciferol (vitamin D3) 50 mcg PO DAILY cyanocobalamin (vitamin B-12) 1,000 mcg PO QAM cyclobenzaprine 10 mg PO Q8H diclofenac sodium 1% (Aleve (diclofenac)) 2 grams topical BID PRN ferrous sulfate 325 mg PO QAM fluticasone propionate 50 mcg/actuation (Flonase Allergy Relief) 2 sprays intranasal DAILY hydrochlorothiazide 12.5 mg PO DAILY hydroxyzine HCl 50 mg PO BEDTIME lidocaine 5% (Lidoderm) 1 patch topical DAILY meclizine 25 mg PO TID PRN metformin ER 500 mg PO BID ondansetron HCl 4 mg PO Q12H PRN oxycodone 5 mg PO Q6H PRN pantoprazole 40 mg PO Q12H pramipexole 0.5 mg PO TID sertraline 1 tab PO BEDTIME thiamine HCl (vitamin B1) 100 mg PO DAILY tizanidine 1 tab PO BEDTIME PRN zolpidem 5 mg PO BEDTIME PRN HPI Comments Details: 63-year-old female patient returning with a new abscess in the right groin. This began yesterday to swell and became quite painful. She denies any bleeding or discharge from the site. She recently underwent extractions in [place] of her lower teeth and reports developing an infection in the bone. She is currently on Zithromax. [facility] Medical History (Updated 03/06/24 @ 14:46 by Flaco Zambrano MD) Abscess Abdominal pain Infection of skin due to methicillin resistant Staphylococcus aureus (MRSA) Numbness of right hand COVID-19 Sebaceous cyst Cubital tunnel syndrome on left Contusion of right ankle Numbness and tingling in left hand Left hand pain Stiffness of left hand joint Emesis Overweight (BMI 25.0-29.9) Borderline diabetes Dyslipidemia Non-toxic multinodular goiter Diabetes type 2, controlled History of restless legs syndrome Anxiety Depression High cholesterol Asthma DVT (deep venous thrombosis) GERD (gastroesophageal reflux disease) Anastomotic ulcer Surgical History Hx of colonoscopy H/O removal of cyst (02/03/23) History of removal of cyst (07/28/22) Hx of cholecystectomy History of surgery History of surgery on left wrist Hx of elbow surgery History of excision of epidermal inclusion cyst (03/23/22) Hx of excision of epidermal inclusion cyst (12/25/21) History of excision of mass (10/26/21) S/P trigger finger release History of tooth extraction Hx of hand surgery Hx of esophagogastroduodenoscopy S/P gastric bypass History of hysterectomy Family History Mother Diabetes mellitus CHF (congestive heart failure) Kidney failure Cervical cancer Brother No problems noted. Brother No problems noted. 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 No clear sebaceous cyst is identified. Does not appear to be hidradenitis. Upper/lower leg/hip images: 1. Site of superficial abscess Office Procedures Incision and Drainage Details: Preoperative diagnosis: Abscess right groin Postoperative diagnosis: Same Procedure: Incision and drainage abscess right groin Surgeon: Flaco Zambrano MD Oil Well Cable Tool Driller: None Anesthesia: Lidocaine 1% with epinephrine Indications for procedure: 63-year-old female patient presenting with a painful collection in the right groin measuring approximately 2 cm just below the groin crease. On examination the collection is fluctuant consistent with an abscess. Operative findings: Small abscess collection located superficially in the right groin. Specimen: None Estimated blood loss: None Complications: None Procedure details: Patient was placed in a supine position. The site of abscess was confirmed by the patient in the right groin. After assuring informed consent the skin was prepped with Betadine and draped in a sterile fashion. Local anesthesia was infiltrated in the overlying skin. A small incision was made with an 11 blade and abscess drained. This was then irrigated with saline solution. The wound was then packed with quarter-inch Nu Gauze. Dry sterile dressings were then applied. The patient tolerated the procedure well and was discharged in stable condition. Assessment & Plan Assessment & Plan (1) Abscess: Code(s): L02.91 - Cutaneous abscess, unspecified Category: Medical Plan 63-year-old female patient with a new abscess in the right groin status post incision and drainage today. I recommended removing the packing in 1-2 days and covering the wound with dry sterile dressings. She should follow up as needed. Coding Level of Care Code Est Pt Level 4 (44790) Diagnoses Abscess L02.91
[2024-03-06 14:41] VITALS: PULSE 68; BMI 27.3
== END 2024-03-06 14:51 | disposition home or self-care (01) ==
PROVIDERS: PCP Student in an Organized Health Care Education/Training Program; Visit Provider Surgery
DX: L02.91 Cutaneous abscess, unspecified (principal)
CPT/HCPCS: 99214

== ENCOUNTER → 2024-03-06 14:10 | Outpatient (BNVA) | payer MEDICAID, SELFPAY | PROVIDERS: PCP Student in an Organized Health Care Education/Training Program; Visit Provider Surgery | DX: L02.91 Cutaneous abscess, unspecified (principal) | CPT/HCPCS: 10060; 99212 ==

== ENCOUNTER 2024-03-07 17:46 | Emergency (ER) | payer MEDICAID, SELFPAY ==
[2024-03-07 17:50] VITALS: BP 131/73; PULSE 88; RESP 20; TEMP 36.4; O2SAT 98; BMI 27.3
--- NOTE | 2024-03-07 17:50 | ED_ITS ---
HPI - General Adult General Chief complaint: Skin/Abscess/Foreign Body Stated complaint: had procedure yesterday, possible site infection Related Data Home Medications ?Medication ?Instructions ?Recorded ?Confirmed hydrochlorothiazide 12.5 mg capsule 12.5 mg PO DAILY 05/09/20 03/06/24 hydroxyzine HCl 25 mg tablet 50 mg PO BEDTIME 06/04/20 03/06/24 sertraline 100 mg tablet 1 tab PO BEDTIME 10/20/21 03/06/24 tizanidine 4 mg tablet 1 tab PO BEDTIME PRN Pain 10/20/21 03/06/24 cyanocobalamin (vitamin B-12) 1,000 mcg PO QAM 06/03/22 03/06/24 1,000 mcg tablet metformin 500 mg tablet,extended 500 mg PO BID 06/03/22 03/06/24 release 24 hr albuterol sulfate 90 mcg/actuation 2 puff inhalation Q4-6H PRN 08/25/23 03/06/24 aerosol inhaler Shortness Of Breath Or Wheezing oxycodone 5 mg tablet 5 mg PO Q6H PRN severe pain 09/27/23 03/06/24 pramipexole 0.5 mg tablet 0.5 mg PO TID 09/27/23 03/06/24 zolpidem 5 mg tablet 5 mg PO BEDTIME PRN insomnia 09/27/23 03/06/24 ferrous sulfate 325 mg (65 mg 325 mg PO QAM 10/27/23 03/06/24 iron) tablet ondansetron HCl 4 mg tablet 4 mg PO Q12H PRN nausea/vomiting 02/03/24 03/06/24 Previous Rx's ?Medication ?Instructions ?Recorded cholecalciferol (vitamin D3) 50 50 mcg PO DAILY #30 caps 12/15/20 mcg (2,000 unit) capsule fluticasone propionate 50 2 spray intranasal DAILY #16 grams 06/21/21 mcg/actuation nasal spray,suspension (Flonase Allergy Relief) blood-glucose meter (FreeStyle #1 ea 08/21/21 Lite Meter kit) blood sugar diagnostic (FreeStyle #150 strips 03/30/22 Lite Strips) thiamine HCl (vitamin B1) 100 mg 100 mg PO DAILY #90 tabs 06/07/22 tablet lidocaine 5 % topical patch 1 patch topical DAILY #15 ea 11/10/22 (Lidoderm) cyclobenzaprine 10 mg tablet 10 mg PO Q8H #20 tabs 01/07/23 meclizine 25 mg tablet 25 mg PO TID PRN dizziness #20 tabs 02/11/23 albuterol sulfate 1.25 mg/3 mL 1.25 mg (3 mL) inhalation QID PRN 06/11/23 solution for nebulization shortness of breath or wheezing #90 mL diclofenac sodium 1 % topical gel 2 g topical BID PRN pain (scale 07/18/23 (Aleve (diclofenac)) score 4-6) #100 grams pantoprazole 40 mg tablet,delayed 40 mg PO Q12H #60 tabs 12/06/23 release azithromycin 500 mg tablet 500 mg PO DAILY 3 days #3 tabs 03/05/24 (Zithromax TRI-ALEJANDRA) Allergies Allergy/AdvReac Type Severity Reaction Status Date / Time prochlorperazine Allergy Severe Seizure Verified 03/07/24 17:52 [From Compazine] Penicillins Allergy Intermediate HIVES Verified 03/07/24 17:52 sulfamethoxazole Allergy Intermediate BLISTERS- Verified 03/07/24 17:52 [From BACTRIM] DELGADO - NERVE ENDINGS IN HAND/ERYTHEMA MULTIFORM trimethoprim [From BACTRIM] Allergy Intermediate BLISTERS- Verified 03/07/24 17:52 DELGADO - NERVE ENDINGS IN HAND/ERYTHEMA MULTIFORM latex [Latex] Allergy Mild RASH Verified 03/07/24 17:52 transparent dressing AdvReac Severe Redness of Verified 03/07/24 17:52 [Tegaderm] Skin theophylline AdvReac Intermediate TACHYCARDIA Verified 03/07/24 17:52 [facility] Past Medical History Medical History (Updated 03/08/24 @ 10:27 by SIMONE Pino) Abscess Abdominal pain Infection of skin due to methicillin resistant Staphylococcus aureus (MRSA) Numbness of right hand COVID-19 Sebaceous cyst Cubital tunnel syndrome on left Contusion of right ankle Numbness and tingling in left hand Left hand pain Stiffness of left hand joint Emesis Overweight (BMI 25.0-29.9) Borderline diabetes Dyslipidemia Non-toxic multinodular goiter Diabetes type 2, controlled History of restless legs syndrome Anxiety Depression High cholesterol Asthma DVT (deep venous thrombosis) GERD (gastroesophageal reflux disease) Anastomotic ulcer Surgical History Hx of colonoscopy H/O removal of cyst (02/03/23) History of removal of cyst (07/28/22) Hx of cholecystectomy History of surgery History of surgery on left wrist Hx of elbow surgery History of excision of epidermal inclusion cyst (03/23/22) Hx of excision of epidermal inclusion cyst (12/25/21) History of excision of mass (10/26/21) S/P trigger finger release History of tooth extraction Hx of hand surgery Hx of esophagogastroduodenoscopy S/P gastric bypass History of hysterectomy Family History Family History Mother Diabetes mellitus CHF (congestive heart failure) Kidney failure Cervical cancer Brother No problems noted. Brother No problems noted. 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 RME assessment and note performed by: Radha Javier PA-C This is a 80-onoa-acn-female who presents to the ER with complaints of right groin abscess pain. Patient was seen by Dr. Zambrano in the office yesterday where she had an incision and drainage. This area was packed. She has not currently on antibiotics. Patient was seen in the emergency room 2 days ago for gum pain, was treated with azithromycin however patient is no longer taking this. She states that she had a fever of 101.2. Unable to visualize area in triage. Plan: Labs, further ER evaluation needed Reevaluation(s) Reevaluation #1: pt left without completing treatment. Medical Decision Making Lab Data 03/07/24 19:14 03/07/24 19:14 Labs: Lab Results 03/07/24 Range/Units 19:14 WBC 8.3 (4.8-10.8) X10*3/uL RBC 4.36 (4.20-5.50) X10*6/uL Hgb 13.0 (12.0-16.0) g/dl Hct 38.1 (37.0-47.0) % MCV 87.4 (80.0-98.0) fL MCH 29.8 (27.0-33.0) pg MCHC 34.1 (31.0-35.0) g/dl RDW 12.3 (11.0-16.0) % Plt Count 215 (160-400) X10*3/uL MPV 9.6 (9.4-12.3) fL Immature Gran % (Auto) 0.2 (0.0-0.4) % Neut % (Auto) 65.3 (45-73) % Lymph % (Auto) 26.1 (20-40) % Bleck[place] % (Auto) 5.6 (2-11) % Eos % (Auto) 2.4 (0-4) % Baso % (Auto) 0.4 (0-2) % Lymph # (Auto) 2.2 (1.2-4.9) X10*3/uL [place]ck[place] # (Auto) 0.5 (0.1-1.2) X10*3/uL Eos # (Auto) 0.2 (0.0-0.4) X10*3/uL Baso # (Auto) 0.0 (0.0-0.2) X10*3/uL Abs Immat Gran (auto) 0.02 (0.00-0.03) X10*3/uL Absolute Neuts (auto) 5.4 (2.0-8.3) x10*3/uL Absolute Nucleated RBC 0.000 (0.0-0.012) X10*3/uL Nucleated RBC % (auto) 0.0 (0.0-0.2) /100WBC Sodium 143 (135-145) mmol/L Potassium 3.7 (3.3-5.1) mmol/L Chloride 107 (96-108) mmol/L Carbon Dioxide 27 (22-29) mmol/L Anion Gap 13 (12-20) BUN 19 H (9-16) mg/dL Creatinine 0.82 (0.5-1.4) mg/dL Estim Creat Clear Calc 67.5 Estimated GFR > 60 Random Glucose 127 H (60-115) mg/dL Calcium 9.1 (8.4-10.2) mg/dL Total Bilirubin 0.3 (0.0-1.0) mg/dL AST 15 (5-31) U/L ALT 17 (0-31) U/L Alkaline Phosphatase 86 (39-117) U/L Total Protein 6.6 (6.5-8.0) g/dL Albumin 3.9 (3.5-5.0) g/dL Discharge Plan Discharge Clinical Impression: Visit for wound check Patient Disposition: Left W/O Completing Treatment Prescriptions: No Action cholecalciferol (vitamin D3) 50 mcg (2,000 unit) capsule 50 mcg PO DAILY Qty: 30 11RF (DME) FreeStyle Lite Strips Strip See Rx Instructions .ROUTE .COMPLEX Qty: 150 6RF Dose Instruction: USE TO TEST BLOOD SUGAR TWICE DAILY Rx Instructions: USE TO TEST BLOOD SUGAR TWICE DAILY thiamine HCl (vitamin B1) 100 mg tablet 100 mg PO DAILY Qty: 90 3RF pantoprazole 40 mg tablet,delayed release (DR/EC) 40 mg PO Q12H Qty: 60 6RF hydroxyzine HCl 25 mg tablet 50 mg PO BEDTIME sertraline 100 mg tablet 1 tab PO BEDTIME tizanidine 4 mg tablet 1 tab PO BEDTIME PRN (Reason: Pain) fluticasone propionate [Flonase Allergy Relief] 50 mcg/actuation spray,suspension 2 spray intranasal DAILY Qty: 16 0RF Rx Instructions: administer into each nostril metformin 500 mg tablet extended release 24 hr 500 mg PO BID albuterol sulfate 1.25 mg/3 mL solution for nebulization 1.25 mg inhalation QID PRN (Reason: shortness of breath or wheezing) Qty: 90 0RF albuterol sulfate 90 mcg/actuation Hfa Aerosol Inhaler 2 puff INHALATION Q4-6H PRN (Reason: Shortness Of Breath Or Wheezing) lidocaine [Lidoderm] 5 % adhesive patch,medicated 1 patch topical DAILY Qty: 15 0RF Rx Instructions: leave on most painful area for up to 12 hrs cyclobenzaprine 10 mg tablet 10 mg PO Q8H Qty: 20 0RF meclizine 25 mg tablet 25 mg PO TID PRN (Reason: dizziness) Qty: 20 0RF diclofenac sodium [Aleve (diclofenac)] 1 % gel 2 g topical BID PRN (Reason: pain (scale score 4-6)) Qty: 100 0RF Rx Instructions: apply to single elbow, wrist or hand; for hand includes palm/fingers/back of hand azithromycin [Zithromax TRI-ALEJANDRA] 500 mg tablet 500 mg PO DAILY 3 Days Qty: 3 0RF hydrochlorothiazide 12.5 mg capsule 12.5 mg PO DAILY (DME) blood-glucose meter [FreeStyle Lite Meter] Kit See Rx Instructions .Route Qty: 1 0RF Rx Instructions: As directed test blood sugar two times a day cyanocobalamin (vitamin B-12) 1,000 mcg tablet 1,000 mcg PO QAM oxycodone 5 mg tablet 5 mg PO Q6H PRN (Reason: severe pain) zolpidem 5 mg tablet 5 mg PO BEDTIME PRN (Reason: insomnia) pramipexole 0.5 mg tablet 0.5 mg PO TID ferrous sulfate 325 mg (65 mg iron) tablet 325 mg PO QAM ondansetron HCl 4 mg tablet 4 mg PO Q12H PRN (Reason: nausea/vomiting) Discharge Date/Time: 03/07/24 23:48
[2024-03-07 19:20] LABS: MANUAL DIFF FLAG NO
[2024-03-07 19:33] LABS: Basophils Percent Auto 0.4 % (0-2); Eosinophils Absolute Auto 0.2 X10*3/uL (0.0-0.4); Eosinophils Percent Auto 2.4 % (0-4); Hematocrit 38.1 % (37.0-47.0); Imm Gran Abs Auto 0.02 X10*3/uL (0.00-0.03); Imm Gran Pct Auto 0.2 % (0.0-0.4); Lymphocytes Absolute Auto 2.2 X10*3/uL (1.2-4.9); Lymphocytes Percent Auto 26.1 % (20-40); Mean Corpuscular HGB Conc 34.1 g/dl (31.0-35.0); Mean Corpuscular Hemoglobin 29.8 pg (27.0-33.0); Mean Corpuscular Volume 87.4 fL (80.0-98.0); Mean Platelet Volume 9.6 fL (9.4-12.3); Monocytes Absolute Auto 0.5 X10*3/uL (0.1-1.2); Monocytes Percent Auto 5.6 % (2-11); Neutrophils Absolute Auto 5.4 x10*3/uL (2.0-8.3); Neutrophils Percent Auto 65.3 % (45-73); Platelet Count 215 X10*3/uL (160-400); Red Blood Count 4.36 X10*6/uL (4.20-5.50); Red Cell Distribution Width 12.3 % (11.0-16.0); White Blood Count 8.3 X10*3/uL (4.8-10.8)
[2024-03-07 19:36] LABS: Alanine Aminotransferase 17 U/L (0-31); Albumin Level 3.9 g/dL (3.5-5.0); Alkaline Phosphatase 86 U/L (39-117); Anion Gap 13 (12-20); Aspartate Amino Transferase 15 U/L (5-31); Bilirubin Total 0.3 mg/dL (0.0-1.0); Blood Urea Nitrogen 19 mg/dL (9-16); Calcium 9.1 mg/dL (8.4-10.2); Carbon Dioxide 27 mmol/L (22-29); Chloride 107 mmol/L (96-108); Creatinine Clr Calc Pharmacy 67.5; Estimated Glomerular Filt Rate > 60; Glucose Random 127 mg/dL (60-115); Potassium 3.7 mmol/L (3.3-5.1); Sodium 143 mmol/L (135-145); Total Protein 6.6 g/dL (6.5-8.0)
[2024-03-07 22:16] VITALS: BP 121/72; PULSE 68; RESP 18; TEMP 36.6; O2SAT 98
--- NOTE | 2024-03-07 23:47 | PC.NURSE ---
pt left from tx room w/o completing tx. PT states she is going to follow up with Dr. Arroyo in the morning, says she is tired and has to go home. Pt ambulatory with steady gait, A&Ox4 . Primary RN aware.
== END 2024-03-07 23:48 | disposition left against medical advice (07) ==
PROVIDERS: Physician Assistant Medical; Emergency Provider Emergency Medicine; PCP Student in an Organized Health Care Education/Training Program
DX: L02.214 Cutaneous abscess of groin (principal); Z48.00 Encounter for change or removal of nonsurgical wound dressing
CPT/HCPCS: 36415; 80053; 85025; 99282; 99283

== ENCOUNTER 2024-03-15 22:59 | Emergency (ER) | payer MEDICAID, SELFPAY ==
[2024-03-15 23:44] VITALS: BP 116/67; PULSE 91; RESP 16; TEMP 36.4; O2SAT 98; BMI 26.7
[2024-03-16 03:38] VITALS: BP 119/74; PULSE 73; RESP 18; O2SAT 99
--- NOTE | 2024-03-16 03:48 | ED.ANIMALBIT ---
HPI - Animal Bite General Chief Complaint: Animal Bite Stated Complaint: dog bite to the face/no skin break Time Seen by Provider: 03/16/24 03:39 Source: patient Mode of arrival: ambulatory Limitations: no limitations History of Present Illness ED Provider: Dr. Janel Pitts HPI narrative: Patient comes to the emergency room complaining of a small dog bite to the left side of the face. Patient states that she was working at the [employer] at [place]. 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 The patient tried to green and pet the dog but it launch towards her face. Skin did break minimally. Patient was sent to the emergency room for further evaluation. Patient states that she has not had Tdap injection/booster in over 20 years. Patient denies any further injuries or bites Related Data Home Medications ?Medication ?Instructions ?Recorded ?Confirmed hydrochlorothiazide 12.5 mg capsule 12.5 mg PO DAILY 05/09/20 03/06/24 hydroxyzine HCl 25 mg tablet 50 mg PO BEDTIME 06/04/20 03/06/24 sertraline 100 mg tablet 1 tab PO BEDTIME 10/20/21 03/06/24 tizanidine 4 mg tablet 1 tab PO BEDTIME PRN Pain 10/20/21 03/06/24 cyanocobalamin (vitamin B-12) 1,000 mcg PO QAM 06/03/22 03/06/24 1,000 mcg tablet metformin 500 mg tablet,extended 500 mg PO BID 06/03/22 03/06/24 release 24 hr albuterol sulfate 90 mcg/actuation 2 puff inhalation Q4-6H PRN 08/25/23 03/06/24 aerosol inhaler Shortness Of Breath Or Wheezing oxycodone 5 mg tablet 5 mg PO Q6H PRN severe pain 09/27/23 03/06/24 pramipexole 0.5 mg tablet 0.5 mg PO TID 09/27/23 03/06/24 zolpidem 5 mg tablet 5 mg PO BEDTIME PRN insomnia 09/27/23 03/06/24 ferrous sulfate 325 mg (65 mg 325 mg PO QAM 10/27/23 03/06/24 iron) tablet ondansetron HCl 4 mg tablet 4 mg PO Q12H PRN nausea/vomiting 02/03/24 03/06/24 Previous Rx's ?Medication ?Instructions ?Recorded cholecalciferol (vitamin D3) 50 50 mcg PO DAILY #30 caps 12/15/20 mcg (2,000 unit) capsule fluticasone propionate 50 2 spray intranasal DAILY #16 grams 06/21/21 mcg/actuation nasal spray,suspension (Flonase Allergy Relief) blood-glucose meter (FreeStyle #1 ea 08/21/21 Lite Meter kit) blood sugar diagnostic (FreeStyle #150 strips 03/30/22 Lite Strips) thiamine HCl (vitamin B1) 100 mg 100 mg PO DAILY #90 tabs 06/07/22 tablet lidocaine 5 % topical patch 1 patch topical DAILY #15 ea 11/10/22 (Lidoderm) cyclobenzaprine 10 mg tablet 10 mg PO Q8H #20 tabs 01/07/23 meclizine 25 mg tablet 25 mg PO TID PRN dizziness #20 tabs 02/11/23 albuterol sulfate 1.25 mg/3 mL 1.25 mg (3 mL) inhalation QID PRN 06/11/23 solution for nebulization shortness of breath or wheezing #90 mL diclofenac sodium 1 % topical gel 2 g topical BID PRN pain (scale 07/18/23 (Aleve (diclofenac)) score 4-6) #100 grams pantoprazole 40 mg tablet,delayed 40 mg PO Q12H #60 tabs 12/06/23 release azithromycin 500 mg tablet 500 mg PO DAILY 3 days #3 tabs 03/05/24 (Zithromax TRI-ALEJANDRA) doxycycline hyclate 100 mg tablet 100 mg PO BID #14 tabs 03/16/24 metronidazole 500 mg tablet 500 mg PO BID #14 tabs 03/16/24 Allergies Allergy/AdvReac Type Severity Reaction Status Date / Time prochlorperazine Allergy Severe Seizure Verified 03/15/24 23:45 [From Compazine] Penicillins Allergy Intermediate HIVES Verified 03/15/24 23:45 sulfamethoxazole Allergy Intermediate BLISTERS- Verified 03/15/24 23:45 [From BACTRIM] DELGADO - NERVE ENDINGS IN HAND/ERYTHEMA MULTIFORM trimethoprim [From BACTRIM] Allergy Intermediate BLISTERS- Verified 03/15/24 23:45 DELGADO - NERVE ENDINGS IN HAND/ERYTHEMA MULTIFORM latex [Latex] Allergy Mild RASH Verified 03/15/24 23:45 transparent dressing AdvReac Severe Redness of Verified 03/15/24 23:45 [Tegaderm] Skin theophylline AdvReac Intermediate TACHYCARDIA Verified 03/15/24 23:45 Review of Systems Review of Systems: Constitutional : No Weight loss, No Fever, No Chills, No Night Sweats, No Fatigue, No Malaise ENT/Mouth : No Hearing loss, No Ear Pain, No Nasal Congestion, No Sinus Pain, No Hoarseness, No sore throat, No Rhinorrhea, No Swallowing Difficulty Eyes: No Eye Pain, No Swelling, No Redness, No Foreign Body, No Discharge, No Vision Changes Cardiovascular : No Chest Pain, No SOB, No Dyspnea on Exertion, No Orthopnea, No Edema, No Palpitations Respiratory : No Cough, No Sputum, No Wheezing, No Smoke Exposure, No Dyspnea Gastrointestinal : No Nausea, No Vomiting, No Diarrhea, No Constipation, No abdominal Pain, No Hematochezia, No Melena Genitourinary : no irregular bleeding, No Dysuria, No Urinary Frequency, No Hematuria, No Urinary Incontinence, No Urgency, No Flank Pain, No Urinary Flow Changes, No Hesitancy Musculoskeletal : No joint pain, No Myalgias, No Joint Swelling Skin : Complaining of a laceration/puncture wound to the left side of the face due to a dog bite Neuro : No Weakness, No Numbness, No Paresthesias, No Loss of Consciousness, No Dizziness, No Headache Psych : No Anxiety/Panic, No Depression, No SI/HI/AH/VH, No Social Issues, Heme/Lymph: No Bruising, No Bleeding,No Lymphadenopathy Endocrine : No Polyuria, No Polydipsia, No Temperature Intolerance PMFSH Past Medical History Medical History Abscess Abdominal pain Infection of skin due to methicillin resistant Staphylococcus aureus (MRSA) Numbness of right hand COVID-19 Sebaceous cyst Cubital tunnel syndrome on left Contusion of right ankle Numbness and tingling in left hand Left hand pain Stiffness of left hand joint Emesis Overweight (BMI 25.0-29.9) Borderline diabetes Dyslipidemia Non-toxic multinodular goiter Diabetes type 2, controlled History of restless legs syndrome Anxiety Depression High cholesterol Asthma DVT (deep venous thrombosis) GERD (gastroesophageal reflux disease) Anastomotic ulcer Surgical History Hx of colonoscopy H/O removal of cyst (02/03/23) History of removal of cyst (07/28/22) Hx of cholecystectomy History of surgery History of surgery on left wrist Hx of elbow surgery History of excision of epidermal inclusion cyst (03/23/22) Hx of excision of epidermal inclusion cyst (12/25/21) History of excision of mass (10/26/21) S/P trigger finger release History of tooth extraction Hx of hand surgery Hx of esophagogastroduodenoscopy S/P gastric bypass History of hysterectomy Family History Family History Mother Diabetes mellitus CHF (congestive heart failure) Kidney failure Cervical cancer Brother No problems noted. Brother No problems noted. 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 Oriented X3. No acute distress. Eyes: Pupils equal, round and reactive to light. ENT: Pharynx normal. Neck: Normal inspection. Neck supple. No lymph nodes noted. No crepitus CVS: Normal heart rate and rhythm. Pulses normal. Normal S1 and S2 Respiratory: No respiratory distress. Breath sounds normal. No Wheezing. No rales Abdomen: Soft and nontender. No rigidity. No distention. Skin: Skin warm and dry. Normal skin color. Normal skin turgor. There is a barely noticeable scratch to the left side of the face, above the zygomatic process. No bleeding, no signs of cellulitis. However the skin is barely open. Extremities: No lower extremity edema. No Lacerations. No Rash Neuro: Oriented X 3. No motor deficit. No sensory deficit. Moving all extremities. No slurred speech. CN 2 through 12 grossly intact Psych: calm, cooperative, normal affect Course Course Course Narrative: I discussed with the patient that given that we do not know anything about the dog, I would recommend proceeding with the DTaP, rabies immune globulin and shot along with the series. -I discussed with the patient that she will need to come several times to the hospital to complete the rabies series. Patient agrees -patient was given p.o. metronidazole and doxycycline -orders for rabies infusion have been entered. ED hospital unit coordinator has been informed Medical Decision Making Differential Diagnosis Differential Diagnoses: The differential diagnosis associated with the presentation includes (Dog bite, puncture wound) Discharge Plan Discharge Clinical Impression: Dog bite Patient Disposition: Home, Self-Care Instructions: Animal Bite (ED), Rabies (ED) Additional Instructions: Please follow-up with your primary care physician tomorrow. If you have any worsening or new symptoms, please return to the emergency room or call 911 Prescriptions: New metronidazole 500 mg tablet 500 mg PO BID Qty: 14 0RF doxycycline hyclate 100 mg tablet 100 mg PO BID Qty: 14 0RF No Action cholecalciferol (vitamin D3) 50 mcg (2,000 unit) capsule 50 mcg PO DAILY Qty: 30 11RF (DME) FreeStyle Lite Strips Strip See Rx Instructions .ROUTE .COMPLEX Qty: 150 6RF Dose Instruction: USE TO TEST BLOOD SUGAR TWICE DAILY Rx Instructions: USE TO TEST BLOOD SUGAR TWICE DAILY thiamine HCl (vitamin B1) 100 mg tablet 100 mg PO DAILY Qty: 90 3RF pantoprazole 40 mg tablet,delayed release (DR/EC) 40 mg PO Q12H Qty: 60 6RF hydroxyzine HCl 25 mg tablet 50 mg PO BEDTIME sertraline 100 mg tablet 1 tab PO BEDTIME tizanidine 4 mg tablet 1 tab PO BEDTIME PRN (Reason: Pain) fluticasone propionate [Flonase Allergy Relief] 50 mcg/actuation spray,suspension 2 spray intranasal DAILY Qty: 16 0RF Rx Instructions: administer into each nostril metformin 500 mg tablet extended release 24 hr 500 mg PO BID albuterol sulfate 1.25 mg/3 mL solution for nebulization 1.25 mg inhalation QID PRN (Reason: shortness of breath or wheezing) Qty: 90 0RF albuterol sulfate 90 mcg/actuation Hfa Aerosol Inhaler 2 puff INHALATION Q4-6H PRN (Reason: Shortness Of Breath Or Wheezing) lidocaine [Lidoderm] 5 % adhesive patch,medicated 1 patch topical DAILY Qty: 15 0RF Rx Instructions: leave on most painful area for up to 12 hrs cyclobenzaprine 10 mg tablet 10 mg PO Q8H Qty: 20 0RF meclizine 25 mg tablet 25 mg PO TID PRN (Reason: dizziness) Qty: 20 0RF diclofenac sodium [Aleve (diclofenac)] 1 % gel 2 g topical BID PRN (Reason: pain (scale score 4-6)) Qty: 100 0RF Rx Instructions: apply to single elbow, wrist or hand; for hand includes palm/fingers/back of hand azithromycin [Zithromax TRI-ALEJANDRA] 500 mg tablet 500 mg PO DAILY 3 Days Qty: 3 0RF hydrochlorothiazide 12.5 mg capsule 12.5 mg PO DAILY (DME) blood-glucose meter [FreeStyle Lite Meter] Kit See Rx Instructions .Route Qty: 1 0RF Rx Instructions: As directed test blood sugar two times a day cyanocobalamin (vitamin B-12) 1,000 mcg tablet 1,000 mcg PO QAM oxycodone 5 mg tablet 5 mg PO Q6H PRN (Reason: severe pain) zolpidem 5 mg tablet 5 mg PO BEDTIME PRN (Reason: insomnia) pramipexole 0.5 mg tablet 0.5 mg PO TID ferrous sulfate 325 mg (65 mg iron) tablet 325 mg PO QAM ondansetron HCl 4 mg tablet 4 mg PO Q12H PRN (Reason: nausea/vomiting) Print Language: Mongolian
[2024-03-16] MEDS: Doxycycline Monohydrate 100 MG CAPSULE PO (04:15)
[2024-03-16] MEDS: metroNIDAZOLE 500 MG TABLET PO (04:16)
[2024-03-16] MEDS: Rabies Vaccine, Human Diploid (Imovax) 1 ML VIAL IM (04:20)
[2024-03-16] MEDS: Rabies Immune Globulin/PF 900 UNIT/3 ML VIAL 1366 UNIT IM (04:22)
[2024-03-16] MEDS: Diphth,Pertus(ACell),Tet Adult 0.5 ML SYRINGE IM (04:25)
== END 2024-03-16 04:48 | disposition home or self-care (01) ==
PROVIDERS: Emergency Provider Emergency Medicine; PCP Student in an Organized Health Care Education/Training Program
DX: S01.85XA Open bite of other part of head, initial encounter (principal); W54.0XXA Bitten by dog, initial encounter; Y93.89 Activity, other specified; Y92.512 Supermarket, store or market as the place of occurrence of the external cause; Y99.0 Civilian activity done for income or pay; Z20.3 Contact with and (suspected) exposure to rabies; Z23 Encounter for immunization
CPT/HCPCS: 90375; 90471; 90675; 90715; 96372; 99283; 99284

== ENCOUNTER 2024-03-30 09:30 | Outpatient (RCR) | payer MEDICAID, SELFPAY ==
[2024-03-19 07:56] VITALS: BP 117/71; PULSE 87; RESP 16; TEMP 36.6; O2SAT 97
[2024-03-19] MEDS: Rabies Vaccine, Human Diploid (Imovax) 1 ML VIAL IM (08:04)
[2024-03-23 08:46] VITALS: BP 105/64; PULSE 76; RESP 20; TEMP 36.6; O2SAT 96
[2024-03-23] MEDS: Rabies Vaccine, Human Diploid (Imovax) 1 ML VIAL IM (08:48)
[2024-03-30 09:14] VITALS: BP 124/69; PULSE 76; RESP 14; TEMP 36.1; O2SAT 97
[2024-03-30] MEDS: Rabies Vaccine (PCEC)/PF 1 ML VIAL IM (09:17)
== END 2024-03-30 14:42 | disposition home or self-care (01) ==
LOC: HO.INF 09:30
PROVIDERS: Visit Provider Emergency Medicine
DX: Z20.3 Contact with and (suspected) exposure to rabies (principal); T14.8XXD Other injury of unspecified body region, subsequent encounter; W54.0XXD Bitten by dog, subsequent encounter
CPT/HCPCS: 90471; 90675

== ENCOUNTER 2024-04-24 06:03 | Outpatient (REF) | payer MEDICAID, SELFPAY | END 2024-04-24 06:04 | disposition home or self-care (01) | LOC: CF 06:03 | PROVIDERS: Visit Provider Anesthesiology | DX: M53.3 Sacrococcygeal disorders, not elsewhere classified (principal); G89.29 Other chronic pain | CPT/HCPCS: 27096; J2003; J2795; Q9967 ==

== ENCOUNTER 2024-04-24 07:24 | Outpatient (AMB) | payer OTHER, SELFPAY ==
--- NOTE | 2024-04-24 07:25 | MHC.OFFVIS ---
Vital Signs 04/24/24 07:30 04/24/24 08:17 Height 5 ft 3 in Weight 153 lb BMI 27.1 BP 111/73 111/70 Blood Pressure Location Lt brachial Lt brachial Position Sitting Sitting Respiration 16 16 Pulse 78 68 Pulse Source Pulse Oximeter Pulse Oximeter Pulse Oximetry (%) 98 98 Oxygen Delivery Method Room Air Room Air Comment Pre-Op Post-Op Intake Visit Reasons: LEFT DIAGNOSTIC SIJ INJECTION Promotions Representative Required: No Accompanied by: Family/Other Allergies prochlorperazine [From Compazine] Allergy (Severe, Verified 04/24/24 07:31) Seizure Penicillins Allergy (Intermediate, Verified 04/24/24 07:31) HIVES sulfamethoxazole [From BACTRIM] Allergy (Intermediate, Verified 04/24/24 07:31) BLISTERS- DELGADO - NERVE ENDINGS IN HAND/ERYTHEMA MULTIFORM trimethoprim [From BACTRIM] Allergy (Intermediate, Verified 04/24/24 07:31) BLISTERS- [place] - NERVE ENDINGS IN HAND/ERYTHEMA MULTIFORM latex [Latex] Allergy (Mild, Verified 04/24/24 07:31) RASH transparent dressing [Tegaderm] Adverse Reaction (Severe, Verified 04/24/24 07:31) Redness of Skin theophylline Adverse Reaction (Intermediate, Verified 04/24/24 07:31) [facility]IA [facility] Medical History Abscess Abdominal pain Infection of skin due to methicillin resistant Staphylococcus aureus (MRSA) Numbness of right hand COVID-19 Sebaceous cyst Cubital tunnel syndrome on left Contusion of right ankle Numbness and tingling in left hand Left hand pain Stiffness of left hand joint Emesis Overweight (BMI 25.0-29.9) Borderline diabetes Dyslipidemia Non-toxic multinodular goiter Diabetes type 2, controlled History of restless legs syndrome Anxiety Depression High cholesterol Asthma DVT (deep venous thrombosis) GERD (gastroesophageal reflux disease) Anastomotic ulcer Surgical History Hx of colonoscopy H/O removal of cyst (02/03/23) History of removal of cyst (07/28/22) Hx of cholecystectomy History of surgery History of surgery on left wrist Hx of elbow surgery History of excision of epidermal inclusion cyst (03/23/22) Hx of excision of epidermal inclusion cyst (12/25/21) History of excision of mass (10/26/21) S/P trigger finger release History of tooth extraction Hx of hand surgery Hx of esophagogastroduodenoscopy S/P gastric bypass History of hysterectomy Family History Mother Diabetes mellitus CHF (congestive heart failure) Kidney failure Cervical cancer Brother No problems noted. Brother No problems noted. 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 Physical Exam Vital Signs: Last Vital Signs Pulse 68 04/24/24 08:17 Resp 16 04/24/24 08:17 BP 111/70 04/24/24 08:17 Pulse Ox 98 04/24/24 08:17 Oxygen Delivery Method Room Air 04/24/24 08:17 BMI result Body Mass Index 27.1 Assessment & Plan Assessment & Plan (1) SI (sacroiliac) joint dysfunction: Code(s): M53.3 - Sacrococcygeal disorders, not elsewhere classified Category: Medical (2) Chronic left SI joint pain: Code(s): M53.3 - Sacrococcygeal disorders, not elsewhere classified; G89.29 - Other chronic pain Category: Medical Plan: Left diagnostic sacroiliac joint injection Nayely is very pleasant 63 years old female who came to my office with recommendations of Neurosurgery Dr. Messina to perform left diagnostic sacroiliac joint injection. Informed consent was explained thoroughly to the patient.? All questions about benefits and risks for the procedure were answered. Patient came to the operating room and was positioned prone on the operating table with the pillow under the abdomen. The lower back and buttocks of the patient were prepped with ChloraPrep prepped and draped with sterile utility towels.? Sterilely draped C-arm was brought over the operating field and sq picture of patient's pelvis was demonstrated on the screen.? For the left joint tilting C-arm contralateral to the site of the joint the most posterior portion of the joints was superimposed with anterior silhouette of the joint.? Skin was injected in the projection of the joint slightly medial to the location of the joint with 25 gauge 1/2 inch needle using local lidocaine 2% . After that 22 gauge 3 and 1/2 inch needle was driven to the left in tunnel vision fashion.? When needle entered the joint capsule injection of the contrast was performed demonstrating intra-articular and minimally periarticular spread of the contrast.? After that 5 cc. of ropivacaine 0.5% was injected in the joint. . Upon completion of the injections the needle was removed and Band-Aid was applied.? Upon completion of the injection patient was taken outside of the operating room to the recovery room where recovered uneventfully Plan Dear colleague, On 02/24/2024 saw for follow-up Nayely Grover to review her new MRI of the lumbar spine. She suffering from progressive left-sided back pain that radiates into her left leg. I do not see a surgical cause on the MRI of 2022 but because of progression of symptoms I repeated the MRI which is stable and does not show clear nerve root compression explaining her symptoms. In my opinion she is most likely suffering from left SI joint dysfunction. I would like to refer to for a left side SI joint injection. Jarett Messina MD, PhD Spine Fellowship Trained Neurosurgeon Director, [facility] Orders: Orders FL guidance in treatment room Today M53.3 - Sacrococcygeal disorders, not elsewhere classified Coding Level of Care Code Procedure Only Diagnoses SI (sacroiliac) joint dysfunction M53.3 Chronic left SI joint pain M53.3; G89.29
[2024-04-24 07:30] VITALS: BP 111/73; PULSE 78; RESP 16; O2SAT 98; BMI 27.1
[2024-04-24 08:17] VITALS: BP 111/70; PULSE 68; RESP 16; O2SAT 98
== END 2024-04-24 08:17 | disposition home or self-care (01) ==
PROVIDERS: PCP Student in an Organized Health Care Education/Training Program; Visit Provider Anesthesiology
DX: M53.3 Sacrococcygeal disorders, not elsewhere classified (principal); G89.29 Other chronic pain
CPT/HCPCS: 27096

== ENCOUNTER 2024-04-30 10:53 | Outpatient (AMB) | payer MEDICAID, SELFPAY ==
--- NOTE | 2024-04-30 10:54 | A.OFFVIS_ITS ---
Vital Signs 04/30/24 11:00 Height 5 ft 3 in Weight 154 lb 8 oz BMI 27.4 BP 126/62 Blood Pressure Location Lt brachial Position Sitting Respiration 16 Pulse 86 Pulse Source Pulse Oximeter Pulse Oximetry (%) 98 Oxygen Delivery Method Room Air Intake Visit Reasons: LEFT DIAGNOSTIC SIJ INJECTION/04/24/24 Intake Note: Patient comes in for post-op. Reports pain 04/12. Allergies prochlorperazine [From Compazine] Allergy (Severe, Verified 04/30/24 11:01) Seizure Penicillins Allergy (Intermediate, Verified 04/30/24 11:01) HIVES sulfamethoxazole [From BACTRIM] Allergy (Intermediate, Verified 04/30/24 11:01) BLISTERS- DELGADO - NERVE ENDINGS IN HAND/ERYTHEMA MULTIFORM trimethoprim [From BACTRIM] Allergy (Intermediate, Verified 04/30/24 11:01) BLISTERS- [place] - NERVE ENDINGS IN HAND/ERYTHEMA MULTIFORM latex [Latex] Allergy (Mild, Verified 04/30/24 11:01) RASH transparent dressing [Tegaderm] Adverse Reaction (Severe, Verified 04/30/24 11:01) Redness of Skin theophylline Adverse Reaction (Intermediate, Verified 04/30/24 11:01) TACHYCARDIA HPI Comments Details: Nayely is very pleasant 63 years old female who presents in my office with complains on lower back pain with radiation into the left lower extremity. She reports that this pain started more than 1 year ago. She denies any inciting events, she reported the pain started 1 day when she woke up from this pain. She reports that she can not sleep normally because of her pain. She can not do activities of daily living with difficulty. She can not take care of herself and she can not function normally. 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 She reports that pain affects her ability to work. She reports that heat applications as well as cold applications make his pain worse. The movements make his pain worse. She is being prescribed by primary care physician in oxycodone which slightly improves her pain. In terms of tissue damage he reports her pain as pounding, shooting, sharp, pinching, hot burning, tingling, stinging, aching, tiring, exhausting, tight, cool sensation. She was under care of pain management in the past and received steroid injections. She was told in the past that her bone conditions are deteriorating and steroid injections would be contraindicated for her. She had physical therapy in the past with [facility] and reported aggravation of pain and no help. She tried lidocaine patches [id number] and reported no pain improvement. She had an MRI done in [facility] and results of this MRI dictated as below. She was examined by neurosurgeon Dr. Messina and Dr. Messina did not find any reason to perform neurosurgery on this patient. Dr. Wood referred this patient to us to perform left sacroiliac joint injection. Sacroiliac joint injections was performed on 04/24/2024. Un fortunately she did not report pain improvement after the injection. She reported only pain aggravation after the injection. Her past medical history significant for morbid obesity. She had gastric bypass and she has since then lost a lot of weight. She also reported asthma and type 2 diabetes which are now under good control after she completed gastric bypass surgery. Her surgical history significant for upper lumbar lower thoracic laminotomy without any hardware insertion. She has history hysterectomy and mentioned above gastric bypass. She admits smoking cigarettes she admits that she is trying to stop smoking. She smokes 2 cigarettes a day at this time. She drinks no alcohol drinks 1 cup of coffee a day she denies soda she denies recreational drugs. [facility] Medical History Abscess Abdominal pain Infection of skin due to methicillin resistant Staphylococcus aureus (MRSA) Numbness of right hand COVID-19 Sebaceous cyst Cubital tunnel syndrome on left Contusion of right ankle Numbness and tingling in left hand Left hand pain Stiffness of left hand joint Emesis Overweight (BMI 25.0-29.9) Borderline diabetes Dyslipidemia Non-toxic multinodular goiter Diabetes type 2, controlled History of restless legs syndrome Anxiety Depression High cholesterol Asthma DVT (deep venous thrombosis) GERD (gastroesophageal reflux disease) Anastomotic ulcer Surgical History Hx of colonoscopy H/O removal of cyst (02/03/23) History of removal of cyst (07/28/22) Hx of cholecystectomy History of surgery History of surgery on left wrist Hx of elbow surgery History of excision of epidermal inclusion cyst (03/23/22) Hx of excision of epidermal inclusion cyst (12/25/21) History of excision of mass (10/26/21) S/P trigger finger release History of tooth extraction Hx of hand surgery Hx of esophagogastroduodenoscopy S/P gastric bypass History of hysterectomy Family History Mother Diabetes mellitus CHF (congestive heart failure) Kidney failure Cervical cancer Brother No problems noted. Brother No problems noted. 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 Review of Systems Const Denies chills and Denies fever(s) Eyes Denies blurry vision, Denies exophthalmos and Denies diplopia ENT Reports Normal hearing present, Denies vertigo and Denies dizziness Card Denies chest pain, Denies chest pain at rest and Denies chest pain with activity Resp Denies chest congestion, Denies cough, Denies hemoptysis, Denies excessive phlegm production, Denies pain on inspiration and Denies pain with cough GI Denies abdominal pain, Denies belching, Denies melena and Denies bloating Denies urinary incontinence Musc Denies as per HPI and Denies back pain Neuro Reports Normal hearing present, Denies Abnormal speech present, Denies confusion, Denies vertigo, Denies dizziness and Denies Sensory deficit (Neuro) Psych Denies no additional complaints and Denies confusion Physical Exam Vital Signs: Last Vital Signs Pulse 86 04/30/24 11:00 Resp 16 04/30/24 11:00 BP 126/62 04/30/24 11:00 Pulse Ox 98 04/30/24 11:00 Oxygen Delivery Method Room Air 04/30/24 11:00 BMI result Body Mass Index 27.4 Const General: no acute distress; No confusion Orientation/consciousness: patient oriented x3 and No confusion Eyes General: appearance normal, both eyes and all related structures Pupils: Equal, round and reactive pupils present EOM: EOMs intact bilaterally Neck Neck: Yes full ROM Chest Chest palpation & inspection: normal inspection of the chest Resp Effort & Inspection: normal respiratory effort, able to speak in complete sentences, normal respiratory pattern, no audible wheezes and no cough Cardio Jugular venous distension: no JVD GI Inspection: Yes normal to inspection Back/Spine/Pelvis Other: Able to stand on bilateral heels and bilateral tiptoes without difficulty however reports pain aggravation. Normal strength of bilateral lower extremities. Reports difficulty sitting for a long period of time. Reports flexing forward and flexing backwards both aggravate her pain however flexing forward aggravate her pain more than flexing backwards. Joshua test is positive on the left. Gaenslen test is positive on the left. Lateral rotation and medial rotation of the hip are positive for pain increase in the projection of sacroiliac joint. SLR is positive on the left. Dorsiflexion of the foot is positive on the left. There is severe tenderness on palpation in projection of mostly L4-5 and S1 vertebra spinal regions as well as paraspinal regions on the left. Loading test is positive bilaterally. Neuro General: patient oriented x3, gait normal and No confusion Cranial nerves: Yes CN's II-XII intact bilaterally, Yes Equal, round and reactive pupils present, Yes Normal hearing present and Yes Ability to bilaterally elevate shoulders present Speech: No Abnormal speech present Gait exam (Neuro): Normal gait present Motor exam (neuro): 5/5 motor strength present throughout Sensory Exam: No Sensory deficit (Neuro) Extrem General: No pedal edema Psych Speech and movement: Normal speech and movement present Affect: normal affect Attitude: cooperative Thought process: Normal thought process present Thought content: Normal thought content present Insight: Good insight present (Psych) Judgement: Good judgement present (Psych) Results Reviewed Results Reviewed: MR LUMBAR SPINE WITHOUT CONTRAST CLINICAL INFORMATION: Low back pain, SI joint dysfunction. COMPARISON: Lumbar radiographs 03/09/2023, MRI lumbar spine 09/22/2017. TECHNIQUE: MRI of the lumbar spine was obtained using routine sequences without the administration of intravenous contrast. FINDINGS: This examination assumes the presence of 5 lumbar-type vertebral bodies. For the purposes of this examination, the L5-S1 intervertebral disc space is visualized on axial series 5 image 28. The normal lumbar lordosis is preserved. Grade 1 anterolisthesis of L4-L5 and L5-S1 with trace retrolisthesis of T12-L1 and L3-L4. Multilevel Schmorl's nodes are noted. No acute compression deformity. Edema along the posterior elements of L5/S1 extending into the right posterior S1 vertebral body, likely on the basis of advanced degenerative change. The conus medullaris and cauda equina nerve roots are unremarkable; the conus terminates at the level of L1. Partially visualized degenerative changes of the lower thoracic spine without high-grade spinal canal or neural foraminal stenosis. L1-L2: Small left subarticular disc protrusion without significant spinal canal stenosis. The neural foramen are patent. L2-L3: Facet arthropathy. The spinal canal and neural foramen are patent. L3-L4: Eccentric left disc bulge and osteophytic ridging with facet arthropathy and ligamentum flavum redundancy. Mild spinal canal stenosis with narrowing of the lateral recesses. There is [id number] left and moderate right neural foraminal stenosis with impingement of the exiting left greater than right L3 nerve roots. Abutment of the exiting left L3 nerve root in the far lateral space by left extraforaminal disc protrusion. L4-L5: Disc bulge and advanced facet arthropathy with ligamentum flavum redundancy. There is asymmetric narrowing of the left thecal sac secondary to prominent left-sided ligamentum flavum redundancy. Mild spinal canal stenosis. Mild narrowing of the left neural foramen with exiting nerve root abutment by facet arthropathy. L5-S1: Trace disc bulge. Severe facet arthropathy with small bilateral facet joint effusions. Redundancy of the ligamentum flavum. The spinal canal is patent. Mild narrowing of the right greater than left neural foramen. Impression: At L3-L4 there is [id number] left and moderate right neural foraminal stenosis with left greater than right exiting nerve root impingement. Additional areas of mild spinal canal and neural foraminal stenosis as described above. Advanced facet arthropathy in the lower lumbar spine with edema in the posterior elements at L5-S1 extending into the posterior right S1 vertebral body, likely on the basis of advanced degenerative change. Personally examined the MRI images and found no endplate edema on the patient's Images. Assessment & Plan Assessment & Plan (1) SI (sacroiliac) joint dysfunction: Code(s): M53.3 - Sacrococcygeal disorders, not elsewhere classified Category: Medical (2) Spondylosis of lumbar region without myelopathy or radiculopathy: Code(s): M47.816 - Spondylosis without myelopathy or radiculopathy, lumbar region Category: Medical (3) Facet arthropathy, lumbar: Code(s): M47.816 - Spondylosis without myelopathy or radiculopathy, lumbar region Category: Medical (4) Disc degeneration, lumbar: Code(s): M51.369 - Other intervertebral disc degeneration, lumbar region without mention of lumbar back pain or lower extremity pain Category: Medical (5) Chronic pain syndrome: Code(s): G89.4 - Chronic pain syndrome Category: Medical Plan Very prominent signs and symptoms of the left sacroiliitis however sacroiliac joint injection resulted in no improvement at all. Some of the patient's condition could be attributed to the spondylosis of the lumbar spine and some of them could be related to left-sided L3-L4 foraminal stenosis. I decided to make yet another diagnostic injection of medial branches L3-L4 does ramus L5 for this patient without steroids. Transforaminal L3-L4 on the left epidural local anesthetic lidocaine injection could be tried to help her pain and properly diagnose the condition. However possibility exists that no injection will be helping this patient. Spinal cord stimulator trial could be considered if the patient will not receive any benefit from injection described above. The patient was given brochure about [employer] spinal cord stimulator and she was given also psychological evaluation brochure to call in 2 days to perform psychological evaluation. Next appointment will be scheduled after diagnostic medial branch block with the patient. Patient Instructions: I here by testify that I spent 60 minutes in conversation with this patient as well as the examining her prior records, examining her images, planning her care and organizing this note. Coding Level of Care Code New Pt Level 5 (39337) Diagnoses SI (sacroiliac) joint dysfunction M53.3 Spondylosis of lumbar region without myelopathy or radiculopathy M47.816 Facet arthropathy, lumbar M47.816 Disc degeneration, lumbar M51.369 Chronic pain syndrome G89.4
[2024-04-30 11:00] VITALS: BP 126/62; PULSE 86; RESP 16; O2SAT 98; BMI 27.4
== END 2024-04-30 11:42 | disposition home or self-care (01) ==
PROVIDERS: PCP Student in an Organized Health Care Education/Training Program; Referring Provider Neurological Surgery; Visit Provider Anesthesiology
DX: M53.3 Sacrococcygeal disorders, not elsewhere classified (principal); M47.816 Spondylosis without myelopathy or radiculopathy, lumbar region; M51.369 Other intervertebral disc degeneration, lumbar region without mention of lumbar back pain or lower extremity pain; G89.4 Chronic pain syndrome
CPT/HCPCS: 99215

== ENCOUNTER → 2024-04-30 10:53 | Outpatient (BNVA) | payer MEDICAID, SELFPAY | PROVIDERS: PCP Student in an Organized Health Care Education/Training Program; Referring Provider Neurological Surgery; Visit Provider Anesthesiology | DX: M53.3 Sacrococcygeal disorders, not elsewhere classified (principal); M47.816 Spondylosis without myelopathy or radiculopathy, lumbar region; M51.369 Other intervertebral disc degeneration, lumbar region without mention of lumbar back pain or lower extremity pain; G89.4 Chronic pain syndrome | CPT/HCPCS: 99212 ==

== ENCOUNTER 2024-05-10 18:13 | Emergency (ER) | payer OTHER, SELFPAY ==
--- NOTE | ~2024-05-10 | CT_ITS ---
EXAMINATION: CT ABDOMEN AND PELVIS WITHOUT IV CONTRAST CLINICAL INFORMATION: Left flank pain COMPARISON: CT abdomen/pelvis December 09, 2023 TECHNIQUE: Multiple axial images were obtained from the superior aspect of the liver through the pubic symphysis without intravenous contrast. Images were evaluated on independent dedicated 3-D workstation and 3-D images were reconstructed with concurrent radiologist supervision and subsequently interpreted. Oral contrast was not administered. This CT examination was performed using dose optimization techniques as appropriate, variously including the following: *Automated exposure control *Adjustment of mA and/or kV according to patient size (this includes techniques or standardized protocols for targeted exams where dose is matched to indication/reason for exam; i.e. extremities or head) *Use of iterative reconstruction technique DLP: 423 mGy-cm FINDINGS: LUNG BASES: The visualized lung bases are clear. CARDIOMEDIASTINUM: The visualized heart is normal in size without pericardial effusion. No coronary artery calcification. LIVER: Homogeneous in attenuation. Normal in size. GALLBLADDER: Noninflamed. BILIARY SYSTEM: No intrahepatic or extrahepatic biliary dilation. PANCREAS: Homogeneous in attenuation. SPLEEN: Normal in size. GENITOURINARY: No contour deforming masses. No perinephric fluid collection. No renal calculi. No hydroureteronephrosis. ADRENAL GLANDS: Unremarkable. REPRODUCTIVE: Uterus absent. No solid adnexal masses. GASTROINTESTINAL: Postsurgical changes of gastric bypass. Enteroenteric anastomosis in the left hemiabdomen. No evidence of obstruction. APPENDIX: The appendix is seen in its entirety and is unremarkable. PERITONEUM: No pneumoperitoneum. No intra-abdominal fluid collection. VASCULATURE: No abdominal aortic aneurysm. LYMPH NODES: No pathologically enlarged abdominal or pelvic lymph nodes. SOFT TISSUES/MUSCULOSKELETAL: Bilateral L4-5 and L5-S1 facet arthropathy. No acute fractures or focal osseous lesions. CT/CT abdomen pelvis wo IV con IMPRESSION: No acute pathology of the abdomen or pelvis on this noncontrast study. Post surgical changes of gastric bypass. Fleischner guidelines were followed. Electronically signed by: Yobani rGeen DO 05/10/2024 10:26 PM TIM
[2024-05-10 18:20] VITALS: BP 124/74; PULSE 75; RESP 16; TEMP 36.6; O2SAT 99; BMI 27.1
--- NOTE | 2024-05-10 18:20 | ED.GENADULT ---
HPI - General Adult General Chief complaint: Back Pain/Injury Stated complaint: Left Kidney Pain Time Seen by Provider: 05/11/24 01:27 Source: patient Mode of arrival: ambulatory Limitations: no limitations History of Present Illness ED Provider: DR. Telles HPI narrative: 63-year-old female came in for evaluation of left flank pain for 1 week, no dysuria, no frequency urination, no blood in the urine, no fever, no chills, no back injury, no recent heavy lifting or strenuous exercising, no nausea, no vomiting, normal bowel movement. History bariatric gastric bypass and cholecystectomy. Related Data Home Medications ?Medication ?Instructions ?Recorded ?Confirmed hydrochlorothiazide 12.5 mg capsule 12.5 mg PO DAILY 05/09/20 03/06/24 hydroxyzine HCl 25 mg tablet 50 mg PO BEDTIME 06/04/20 03/06/24 sertraline 100 mg tablet 1 tab PO BEDTIME 10/20/21 03/06/24 tizanidine 4 mg tablet 1 tab PO BEDTIME PRN Pain 10/20/21 03/06/24 cyanocobalamin (vitamin B-12) 1,000 mcg PO QAM 06/03/22 03/06/24 1,000 mcg tablet metformin 500 mg tablet,extended 500 mg PO BID 06/03/22 03/06/24 release 24 hr albuterol sulfate 90 mcg/actuation 2 puff inhalation Q4-6H PRN 08/25/23 03/06/24 aerosol inhaler Shortness Of Breath Or Wheezing oxycodone 5 mg tablet 5 mg PO Q6H PRN severe pain 09/27/23 03/06/24 pramipexole 0.5 mg tablet 0.5 mg PO TID 09/27/23 03/06/24 zolpidem 5 mg tablet 5 mg PO BEDTIME PRN insomnia 09/27/23 03/06/24 ferrous sulfate 325 mg (65 mg 325 mg PO QAM 10/27/23 03/06/24 iron) tablet ondansetron HCl 4 mg tablet 4 mg PO Q12H PRN nausea/vomiting 02/03/24 03/06/24 varenicline 1 mg tablet 1 mg PO BID 04/24/24 Previous Rx's ?Medication ?Instructions ?Recorded cholecalciferol (vitamin D3) 50 50 mcg PO DAILY #30 caps 12/15/20 mcg (2,000 unit) capsule fluticasone propionate 50 2 spray intranasal DAILY #16 grams 06/21/21 mcg/actuation nasal spray,suspension (Flonase Allergy Relief) blood-glucose meter (FreeStyle #1 ea 08/21/21 Lite Meter kit) blood sugar diagnostic (FreeStyle #150 strips 03/30/22 Lite Strips) thiamine HCl (vitamin B1) 100 mg 100 mg PO DAILY #90 tabs 06/07/22 tablet lidocaine 5 % topical patch 1 patch topical DAILY #15 ea 11/10/22 (Lidoderm) cyclobenzaprine 10 mg tablet 10 mg PO Q8H #20 tabs 01/07/23 meclizine 25 mg tablet 25 mg PO TID PRN dizziness #20 tabs 02/11/23 albuterol sulfate 1.25 mg/3 mL 1.25 mg (3 mL) inhalation QID PRN 06/11/23 solution for nebulization shortness of breath or wheezing #90 mL diclofenac sodium 1 % topical gel 2 g topical BID PRN pain (scale 07/18/23 (Aleve (diclofenac)) score 4-6) #100 grams pantoprazole 40 mg tablet,delayed 40 mg PO Q12H #60 tabs 12/06/23 release metronidazole 500 mg tablet 500 mg PO BID #14 tabs 03/16/24 Allergies Allergy/AdvReac Type Severity Reaction Status Date / Time prochlorperazine Allergy Severe Seizure Verified 05/10/24 18:27 [From Compazine] Penicillins Allergy Intermediate HIVES Verified 05/10/24 18:27 sulfamethoxazole Allergy Intermediate BLISTERS- Verified 05/10/24 18:27 [From BACTRIM] DELGADO - NERVE ENDINGS IN HAND/ERYTHEMA MULTIFORM trimethoprim [From BACTRIM] Allergy Intermediate BLISTERS- Verified 05/10/24 18:27 DELGADO - NERVE ENDINGS IN HAND/ERYTHEMA MULTIFORM latex [Latex] Allergy Mild RASH Verified 05/10/24 18:27 transparent dressing AdvReac Severe Redness of Verified 05/10/24 18:27 [Tegaderm] Skin theophylline AdvReac Intermediate TACHYCARDIA Verified 05/10/24 18:27 Review of Systems Review of Systems: All other systems are reviewed and are negative Constitutional: Reports as per HPI and Reports no additional constitutional complaints Eyes: Reports as per HPI and Reports no additional eye complaints Reports system reviewed and no additional complaints, except as documented Cardiovascular: Reports as per HPI and Reports no additional cardiovascular complaints Respiratory: Reports as per HPI and Reports no additional respiratory complaints Gastrointestinal: Reports as per HPI and Reports no additional gastrointestinal complaints Genitourinary: Reports no additional female genitourinary complaints Musculoskeletal: Reports no additional musculoskeletal complaints Skin/Breast: Reports system reviewed and no additional complaints, except as docu Psychiatric: Reports no additional psychiatric complaints Endocrine: Reports no additional endocrine complaints Hematologic/Lymphatic: Reports no additional hematologic/lymphatic complaints Allergic/Immunologic: Reports no additional allergic/immunologic complaints Reports system reviewed and no additional complaints, except as documented and Reports Abnormal speech present [facility] Past Medical History Medical History Abscess Abdominal pain Infection of skin due to methicillin resistant Staphylococcus aureus (MRSA) Numbness of right hand COVID-19 Sebaceous cyst Cubital tunnel syndrome on left Contusion of right ankle Numbness and tingling in left hand Left hand pain Stiffness of left hand joint Emesis Overweight (BMI 25.0-29.9) Borderline diabetes Dyslipidemia Non-toxic multinodular goiter Diabetes type 2, controlled History of restless legs syndrome Anxiety Depression High cholesterol Asthma DVT (deep venous thrombosis) GERD (gastroesophageal reflux disease) Anastomotic ulcer Surgical History Hx of colonoscopy H/O removal of cyst (02/03/23) History of removal of cyst (07/28/22) Hx of cholecystectomy History of surgery History of surgery on left wrist Hx of elbow surgery History of excision of epidermal inclusion cyst (03/23/22) Hx of excision of epidermal inclusion cyst (12/25/21) History of excision of mass (10/26/21) S/P trigger finger release History of tooth extraction Hx of hand surgery Hx of esophagogastroduodenoscopy S/P gastric bypass History of hysterectomy Family History Family History Mother Diabetes mellitus CHF (congestive heart failure) Kidney failure Cervical cancer Brother No problems noted. Brother No problems noted. Social History Social History Household Members: Spouse Are you a primary care clinician to a significant other at home: No Do you presently have visiting nurse or other home services: No Alcohol intake: former Patient Tobacco Use Status: Former Tobacco user Tobacco use type: Cigarette Cigarette Packs Per Day: 0 Cigarettes Per Day: 1 Years Smoked: 30 Smoked in Last 30 Days: Yes Use of substances other than those prescribed or required for medical reasons: No Advance Directives: Yes Advance Directives Information Provided: No Advance Directives on File: No Advance Directives Date on File: 03/16/24 Patient : No Current occupational status: employed 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 Blood pressure elevated. Heart rate normal. Respiratory rate normal. Temperature normal. Oxygen saturation normal. Appearance: Alert. Oriented X3. No acute distress. Head: Normal external exam. Normocephalic. Atraumatic. No Miller signs noted. No raccoon eyes noted Eyes: PERRLA. EOMI. Conjunctiva and sclera normal. Eyelids normal. ENT: TM's Normal. Pharynx normal. Uvula midline. Moist mucous membranes. No trismus noted. No drooling noted. No muffled voice noted. Neck: Normal inspection. Neck supple. FROM. No adenopathy. Thyroid Normal. No meningeal signs. No neck mass noted. CVS: Normal heart rate and rhythm. Heart sound normal. No murmurs noted. Pulses normal throughout. Respiratory: No respiratory distress. Painless inspiration. Breath sounds normal. No wheezes/rales/rhonchi noted. Chest nontender. No accessory muscle usage noted or decreased air movement noted. Abdomen: Soft and nontender. Bowel sounds normal in all 4 quadrants. No distention noted. No organomegaly noted. No visible injury noted. Back: Left CVA tenderness. Full range of motion noted. Skin: Skin warm and dry. Normal skin color. Normal skin turgor. No rashes/lesions/lacerations noted. Extremities: No lower extremity edema. Extremities exhibit normal range of motion. Extremities nontender. Neuro: Oriented X 3. Cranial nerve exam: II-XII are grossly intact No motor deficit. No sensory deficit. Reflexes normal. Course Course Course Narrative: This is an RME: Additional HPI, ROS, PE not included below will be deferred to primary provider. RME assessment and note performed by: Radha Javier PA-C This is a [id number], with a hx of HLD, GERD, asthma, DM, DDD, who presents to the ER with complaints of left flank pain since today. She has a hx of back pain but this pain is different. Reporting urinary urgency. Also endorsing nausea and vomiting. Plan: Labs, UA, CT Reevaluation(s) Reevaluation #1: Left lower back and/left CVA tenderness, normal UA, CT of the abdomen and pelvis shows no pathology to explain patient's symptoms. Patient feels better after was given Dilaudid IM, was instructed to apply heating pad and use Tylenol if needed for pain. Time: 01:42 Medications Administered Discontinued Medications Generic Name Dose Route Start Last Admin Trade Name Freq PRN Reason Stop Dose Admin Hydromorphone HCl 1 mg 05/11/24 01:37 05/11/24 01:48 Hydromorphone Hcl 1 Mg/Ml Syringe IM 05/11/24 01:38 1 mg ONCE ONE Administration Protocol Medical Decision Making Differential Diagnosis Differential Diagnoses: The differential diagnosis associated with the presentation includes (Obstructing kidney stone, pyelonephritis, acute appendicitis, colitis, diverticulitis, UTI, electrolyte derangement, severe anemia.) Admission/Observation Consideration of admission/observation: Escalation of care including admission/observation considered Lab Data MDM Lab Attestation statement: I reviewed the patient's lab results. 05/10/24 18:38 05/10/24 18:38 Labs: Lab Results 05/10/24 05/10/24 Range/Units 18:38 21:52 WBC 6.7 (4.8-10.8) X10*3/uL RBC 4.39 (4.20-5.50) X10*6/uL Hgb 13.0 (12.0-16.0) g/dl Hct 38.5 (37.0-47.0) % MCV 87.7 (80.0-98.0) fL MCH 29.6 (27.0-33.0) pg MCHC 33.8 (31.0-35.0) g/dl RDW 13.0 (11.0-16.0) % Plt Count 186 (160-400) X10*3/uL MPV 10.0 (9.4-12.3) fL Immature Gran % (Auto) 0.1 (0.0-0.4) % Neut % (Auto) 61.9 (45-73) % Lymph % (Auto) 29.1 (20-40) % [place] % (Auto) 5.5 (2-11) % Eos % (Auto) 3.1 (0-4) % Baso % (Auto) 0.3 (0-2) % Lymph # (Auto) 2.0 (1.2-4.9) X10*3/uL [place] # (Auto) 0.4 (0.1-1.2) X10*3/uL Eos # (Auto) 0.2 (0.0-0.4) X10*3/uL Baso # (Auto) 0.0 (0.0-0.2) X10*3/uL Abs Immat Gran (auto) 0.01 (0.00-0.03) X10*3/uL Absolute Neuts (auto) 4.2 (2.0-8.3) x10*3/uL Absolute Nucleated RBC 0.000 (0.0-0.012) X10*3/uL Nucleated RBC % (auto) 0.0 (0.0-0.2) /100WBC Sodium 141 (135-145) mmol/L Potassium 4.3 (3.3-5.1) mmol/L Chloride 106 (96-108) mmol/L Carbon Dioxide 28 (22-29) mmol/L Anion Gap 11 L (12-20) BUN 18 H (9-16) mg/dL Creatinine 0.76 (0.5-1.4) mg/dL Estim Creat Clear Calc 72.7 Estimated GFR > 60 Random Glucose 123 H (60-115) mg/dL Calcium 9.0 (8.4-10.2) mg/dL Magnesium 2.0 (1.6-2.6) mg/dL Total Bilirubin 0.3 (0.0-1.0) mg/dL Direct Bilirubin 0.1 (0.0-0.5) mg/dL AST 22 (5-31) U/L ALT 26 (0-31) U/L Alkaline Phosphatase 80 (39-117) U/L Total Protein 6.7 (6.5-8.0) g/dL Albumin 3.9 (3.5-5.0) g/dL Lipase 27 (8-78) U/L Urine Color Yellow Urine Appearance Clear Urine pH 6.5 (5.0-9.0) Ur Specific [place] 1.020 (1.005-1.025) Urine Protein Negative (Neg-Trace) mg/dL Urine Glucose (UA) 100 H (Negative) mg/dL Urine Ketones Negative (Negative) mg/dL Urine Blood Negative (Negative) Urine Nitrite Negative (Negative) Ur Leukocyte Esterase Negative (Negative) Independent Interpretation I performed an independent interpretation of an: CT Scan (Abdomen and pelvis:No acute pathology of the abdomen or pelvis on this noncontrast study. Post surgical changes of gastric bypass. ) Discharge Plan Discharge Clinical Impression: Acute left flank pain, Pulled muscle Patient Disposition: Home, Self-Care Instructions: Musculoskeletal Pain (ED) Prescriptions: No Action cholecalciferol (vitamin D3) 50 mcg (2,000 unit) capsule 50 mcg PO DAILY Qty: 30 11RF (DME) FreeStyle Lite Strips Strip See Rx Instructions .ROUTE .COMPLEX Qty: 150 6RF Dose Instruction: USE TO TEST BLOOD SUGAR TWICE DAILY Rx Instructions: USE TO TEST BLOOD SUGAR TWICE DAILY thiamine HCl (vitamin B1) 100 mg tablet 100 mg PO DAILY Qty: 90 3RF pantoprazole 40 mg tablet,delayed release (DR/EC) 40 mg PO Q12H Qty: 60 6RF hydroxyzine HCl 25 mg tablet 50 mg PO BEDTIME sertraline 100 mg tablet 1 tab PO BEDTIME tizanidine 4 mg tablet 1 tab PO BEDTIME PRN (Reason: Pain) fluticasone propionate [Flonase Allergy Relief] 50 mcg/actuation spray,suspension 2 spray intranasal DAILY Qty: 16 0RF Rx Instructions: administer into each nostril metformin 500 mg tablet extended release 24 hr 500 mg PO BID albuterol sulfate 1.25 mg/3 mL solution for nebulization 1.25 mg inhalation QID PRN (Reason: shortness of breath or wheezing) Qty: 90 0RF albuterol sulfate 90 mcg/actuation Hfa Aerosol Inhaler 2 puff INHALATION Q4-6H PRN (Reason: Shortness Of Breath Or Wheezing) metronidazole 500 mg tablet 500 mg PO BID Qty: 14 0RF lidocaine [Lidoderm] 5 % adhesive patch,medicated 1 patch topical DAILY Qty: 15 0RF Rx Instructions: leave on most painful area for up to 12 hrs cyclobenzaprine 10 mg tablet 10 mg PO Q8H Qty: 20 0RF meclizine 25 mg tablet 25 mg PO TID PRN (Reason: dizziness) Qty: 20 0RF diclofenac sodium [Aleve (diclofenac)] 1 % gel 2 g topical BID PRN (Reason: pain (scale score 4-6)) Qty: 100 0RF Rx Instructions: apply to single elbow, wrist or hand; for hand includes palm/fingers/back of hand hydrochlorothiazide 12.5 mg capsule 12.5 mg PO DAILY (DME) blood-glucose meter [FreeStyle Lite Meter] Kit See Rx Instructions .Route Qty: 1 0RF Rx Instructions: As directed test blood sugar two times a day cyanocobalamin (vitamin B-12) 1,000 mcg tablet 1,000 mcg PO QAM oxycodone 5 mg tablet 5 mg PO Q6H PRN (Reason: severe pain) zolpidem 5 mg tablet 5 mg PO BEDTIME PRN (Reason: insomnia) pramipexole 0.5 mg tablet 0.5 mg PO TID varenicline 1 mg tablet 1 mg PO BID ferrous sulfate 325 mg (65 mg iron) tablet 325 mg PO QAM ondansetron HCl 4 mg tablet 4 mg PO Q12H PRN (Reason: nausea/vomiting) Referrals: Joyce Tapia MD [Primary Care Provider] - Stand Alone Forms: Work/School Release Interventions: ED Discharge Assessment Last Done: 05/11/24 02:00 Discharge Date/Time: 05/11/24 02:00 Print Language: Mosotho
[2024-05-10 18:43] LABS: MANUAL DIFF FLAG NO
[2024-05-10 18:44] LABS: Basophils Percent Auto 0.3 % (0-2); Eosinophils Absolute Auto 0.2 X10*3/uL (0.0-0.4); Eosinophils Percent Auto 3.1 % (0-4); Hematocrit 38.5 % (37.0-47.0); Imm Gran Abs Auto 0.01 X10*3/uL (0.00-0.03); Imm Gran Pct Auto 0.1 % (0.0-0.4); Lymphocytes Percent Auto 29.1 % (20-40); Mean Corpuscular HGB Conc 33.8 g/dl (31.0-35.0); Mean Corpuscular Hemoglobin 29.6 pg (27.0-33.0); Mean Corpuscular Volume 87.7 fL (80.0-98.0); Monocytes Absolute Auto 0.4 X10*3/uL (0.1-1.2); Monocytes Percent Auto 5.5 % (2-11); Neutrophils Absolute Auto 4.2 x10*3/uL (2.0-8.3); Neutrophils Percent Auto 61.9 % (45-73); Platelet Count 186 X10*3/uL (160-400); Red Blood Count 4.39 X10*6/uL (4.20-5.50); White Blood Count 6.7 X10*3/uL (4.8-10.8)
[2024-05-10 19:00] LABS: Alanine Aminotransferase 26 U/L (0-31); Albumin Level 3.9 g/dL (3.5-5.0); Alkaline Phosphatase 80 U/L (39-117); Anion Gap 11 (12-20); Aspartate Amino Transferase 22 U/L (5-31); Bilirubin Direct 0.1 mg/dL (0.0-0.5); Bilirubin Total 0.3 mg/dL (0.0-1.0); Blood Urea Nitrogen 18 mg/dL (9-16); Carbon Dioxide 28 mmol/L (22-29); Chloride 106 mmol/L (96-108); Creatinine Clr Calc Pharmacy 72.7; Estimated Glomerular Filt Rate > 60; Glucose Random 123 mg/dL (60-115); Lipase 27 U/L (8-78); Potassium 4.3 mmol/L (3.3-5.1); Sodium 141 mmol/L (135-145); Total Protein 6.7 g/dL (6.5-8.0)
[2024-05-10 21:43] VITALS: BP 122/60; PULSE 88; RESP 16; TEMP 36.4; O2SAT 95
[2024-05-10 22:05] LABS: Appearance Urine Clear; Color Urine Yellow; Glucose Urine UA 100 mg/dL (Negative); Leukocyte Esterase Urine Negative (Negative); Nitrite Urine Negative (Negative); PH 6.5 (5.0-9.0); Urine Blood Negative (Negative); Urine Ketones Negative (Negative); Urine Protein Negative (Neg-Trace)
[2024-05-11 00:52] VITALS: BP 98/42; PULSE 67; RESP 12; TEMP 36.4; O2SAT 97
[2024-05-11] MEDS: HYDROmorphone HCl 1 MG/ML SYRINGE IM (01:48)
[2024-05-11 02:00] VITALS: BP 98/42; PULSE 67; RESP 12; TEMP 36.4; O2SAT 97
== END 2024-05-11 02:00 | disposition home or self-care (01) ==
PROVIDERS: Physician Assistant Medical; Emergency Provider Emergency Medicine; PCP Student in an Organized Health Care Education/Training Program
DX: R10.9 Unspecified abdominal pain (principal); M79.18 Myalgia, other site
CPT/HCPCS: 36415; 74176; 80048; 80076; 81003; 83690; 83735; 85025; 96372; 99284; J1171

== ENCOUNTER 2024-05-17 08:48 | Outpatient (AMB) | payer OTHER, SELFPAY ==
[2024-05-17 08:53] VITALS: BP 127/67; PULSE 77; O2SAT 97; BMI 26.4
--- NOTE | 2024-05-17 08:53 | MHC.OFFVIS ---
Vital Signs 05/17/24 08:53 Height 5 ft 3 in Weight 149 lb BMI 26.4 BP 127/67 Blood Pressure Location Lt brachial Position Sitting Pulse 77 Pulse Source Pulse Oximeter Pulse Oximetry (%) 97 Oxygen Delivery Method Room Air Intake Visit Reasons: Follow Up/Discuss Managing Pain until Inj. Allergies prochlorperazine [From Compazine] Allergy (Severe, Verified 05/17/24 08:54) Seizure Penicillins Allergy (Intermediate, Verified 05/17/24 08:54) HIVES sulfamethoxazole [From BACTRIM] Allergy (Intermediate, Verified 05/17/24 08:54) BLISTERS- DELGADO - NERVE ENDINGS IN HAND/ERYTHEMA MULTIFORM trimethoprim [From BACTRIM] Allergy (Intermediate, Verified 05/17/24 08:54) BLISTERS- [place] - NERVE ENDINGS IN HAND/ERYTHEMA MULTIFORM latex [Latex] Allergy (Mild, Verified 05/17/24 08:54) RASH transparent dressing [Tegaderm] Adverse Reaction (Severe, Verified 05/17/24 08:54) Redness of Skin theophylline Adverse Reaction (Intermediate, Verified 05/17/24 08:54) TACHYCARDIA Medication List - Last Reconciled 05/17/24 by Dot Melendez albuterol sulfate 1.25 mg (3 mL) inhalation QID PRN albuterol sulfate 90 mcg/actuation 2 puffs inhalation Q4-6H PRN blood sugar diagnostic (FreeStyle Lite Strips) USE TO TEST BLOOD SUGAR TWICE DAILY blood-glucose meter (FreeStyle Lite Meter kit) As directed test blood sugar two times a day cholecalciferol (vitamin D3) 50 mcg PO DAILY cyanocobalamin (vitamin B-12) 1,000 mcg PO QAM cyclobenzaprine 10 mg PO Q8H diclofenac sodium 1% (Aleve (diclofenac)) 2 grams topical BID PRN ferrous sulfate 325 mg PO QAM fluticasone propionate 50 mcg/actuation (Flonase Allergy Relief) 2 sprays intranasal DAILY hydrochlorothiazide 12.5 mg PO DAILY hydroxyzine HCl 50 mg PO BEDTIME lidocaine 5% (Lidoderm) 1 patch topical DAILY meclizine 25 mg PO TID PRN metformin ER 500 mg PO BID metronidazole 500 mg PO BID ondansetron HCl 4 mg PO Q12H PRN oxycodone 5 mg PO Q6H PRN pantoprazole 40 mg PO Q12H pramipexole 0.5 mg PO TID sertraline 1 tab PO BEDTIME thiamine HCl (vitamin B1) 100 mg PO DAILY tizanidine 1 tab PO BEDTIME PRN varenicline 1 mg PO BID zolpidem 5 mg PO BEDTIME PRN HPI Comments Details: Nayely is back in my office reporting that her pain is unbearable. She started to reports today that her pain is on the left side of her pelvis, aggravated when she tries to flex forward, and pain radiates to the rectum and urges her to defecate. I need to rule out any intrapelvic conditions or masses which could be the cause of this pain. I will send her for urgent CT scan of abdomen and pelvis with and without contrast. I will see the patient in [address] scan is ready. Prior: very pleasant 63 years old female who presents in my office with complains on lower back pain with radiation into the left lower extremity. She reports that this pain started more than 1 year ago. She denies any inciting events, she reported the pain started 1 day when she woke up from this pain. She reports that she can not sleep normally because of her pain. She can not do activities of daily living with difficulty. She can not take care of herself and she can not function normally. 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 She reports that pain affects her ability to work. She reports that heat applications as well as cold applications make his pain worse. The movements make his pain worse. She is being prescribed by primary care physician in oxycodone which slightly improves her pain. In terms of tissue damage he reports her pain as pounding, shooting, sharp, pinching, hot burning, tingling, stinging, aching, tiring, exhausting, tight, cool sensation. She was under care of pain management in the past and received steroid injections. She was told in the past that her bone conditions are deteriorating and steroid injections would be contraindicated for her. She had physical therapy in the past with [facility] [place] core physical therapy and reported aggravation of pain and no help. She tried lidocaine patches [id number] and reported no pain improvement. She had an MRI done in [facility] and results of this MRI dictated as below. She was examined by neurosurgeon Dr. Messina and Dr. Messina did not find any reason to perform neurosurgery on this patient. Dr. Wood referred this patient to us to perform left sacroiliac joint injection. Sacroiliac joint injections was performed on 04/24/2024. Unfortunately she did not report pain improvement after the injection. She reported only pain aggravation after the injection. Her past medical history significant for morbid obesity. She had gastric bypass and she has since then lost a lot of weight. She also reported asthma and type 2 diabetes which are now under good control after she completed gastric bypass surgery. Her surgical history significant for upper lumbar lower thoracic laminotomy without any hardware insertion. She has history hysterectomy and mentioned above gastric bypass. She admits smoking cigarettes she admits that she is trying to stop smoking. She smokes 2 cigarettes a day at this time. She drinks no alcohol drinks 1 cup of coffee a day she denies soda she denies recreational drugs. [facility] Medical History Abscess Abdominal pain Infection of skin due to methicillin resistant Staphylococcus aureus (MRSA) Numbness of right hand COVID-19 Sebaceous cyst Cubital tunnel syndrome on left Contusion of right ankle Numbness and tingling in left hand Left hand pain Stiffness of left hand joint Emesis Overweight (BMI 25.0-29.9) Borderline diabetes Dyslipidemia Non-toxic multinodular goiter Diabetes type 2, controlled History of restless legs syndrome Anxiety Depression High cholesterol Asthma DVT (deep venous thrombosis) GERD (gastroesophageal reflux disease) Anastomotic ulcer Surgical History Hx of colonoscopy H/O removal of cyst (02/03/23) History of removal of cyst (07/28/22) Hx of cholecystectomy History of surgery History of surgery on left wrist Hx of elbow surgery History of excision of epidermal inclusion cyst (03/23/22) Hx of excision of epidermal inclusion cyst (12/25/21) History of excision of mass (10/26/21) S/P trigger finger release History of tooth extraction Hx of hand surgery Hx of esophagogastroduodenoscopy S/P gastric bypass History of hysterectomy Family History Mother Diabetes mellitus CHF (congestive heart failure) Kidney failure Cervical cancer Brother No problems noted. Brother No problems noted. 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 Review of Systems Const All systems reviewed & are unremarkable except as noted in HPI and below ENT Reports Normal hearing present Neuro Reports Normal hearing present, Denies Abnormal speech present, Denies confusion and Denies Sensory deficit (Neuro) Psych Denies confusion Physical Exam Vital Signs: Last Vital Signs Pulse 77 05/17/24 08:53 BP 127/67 05/17/24 08:53 Pulse Ox 97 05/17/24 08:53 Oxygen Delivery Method Room Air 05/17/24 08:53 BMI result Body Mass Index 26.4 Const General: no acute distress; No confusion Orientation/consciousness: patient oriented x3 and No confusion Eyes General: appearance normal, both eyes and all related structures Pupils: Equal, round and reactive pupils present EOM: EOMs intact bilaterally Neck Neck: Yes full ROM Chest Chest palpation & inspection: normal inspection of the chest Resp Effort & Inspection: normal respiratory effort, able to speak in complete sentences, normal respiratory pattern, no audible wheezes and no cough Cardio Jugular venous distension: no JVD GI Inspection: Yes normal to inspection Back/Spine/Pelvis Other: Able to stand on bilateral heels and bilateral tiptoes without difficulty however reports pain aggravation. Normal strength of bilateral lower extremities. Reports difficulty sitting for a long period of time. Reports flexing forward and flexing backwards both aggravate her pain however flexing forward aggravate her pain more than flexing backwards. Joshua test is positive on the left. Gaenslen test is positive on the left. Lateral rotation and medial rotation of the hip are positive for pain increase in the projection of sacroiliac joint. SLR is positive on the left. Dorsiflexion of the foot is positive on the left. There is severe tenderness on palpation in projection of mostly L4-5 and S1 vertebra spinal regions as well as paraspinal regions on the left. Loading test is positive bilaterally. Neuro General: patient oriented x3, gait normal and No confusion Cranial nerves: Yes CN's II-XII intact bilaterally, Yes Equal, round and reactive pupils present, Yes Normal hearing present and Yes Ability to bilaterally elevate shoulders present Speech: No Abnormal speech present Gait exam (Neuro): Normal gait present Motor exam (neuro): 5/5 motor strength present throughout Sensory Exam: No Sensory deficit (Neuro) Extrem General: No pedal edema Psych Speech and movement: Normal speech and movement present Affect: normal affect Attitude: cooperative Thought process: Normal thought process present Thought content: Normal thought content present Insight: Good insight present (Psych) Judgement: Good judgement present (Psych) Assessment & Plan Assessment & Plan (1) SI (sacroiliac) joint dysfunction: Code(s): M53.3 - Sacrococcygeal disorders, not elsewhere classified Category: Medical (2) Spondylosis of lumbar region without myelopathy or radiculopathy: Code(s): M47.816 - Spondylosis without myelopathy or radiculopathy, lumbar region Category: Medical (3) Facet arthropathy, lumbar: Code(s): M47.816 - Spondylosis without myelopathy or radiculopathy, lumbar region Category: Medical (4) Disc degeneration, lumbar: Code(s): M51.369 - Other intervertebral disc degeneration, lumbar region without mention of lumbar back pain or lower extremity pain Category: Medical (5) Chronic pain syndrome: Code(s): G89.4 - Chronic pain syndrome Category: Medical (6) Pelvic pain: Code(s): R10.2 - Pelvic and perineal pain Category: Medical Plan Very prominent signs and symptoms of the left sacroiliitis however sacroiliac joint injection resulted in no improvement at all. We were planning diagnostic medial branch block however she reported today that pain is aggravated by flexing forward it causes her to become dizzy, and pain radiates to the rectum make her defecate. With diagnosis of pelvic pain I will send her for urgent CT scan of abdomen and pelvis. At this time her medial branch block which was planned in the past needs to be reconsidered until negative results of CT abdomen and pelvis. Orders: Orders CT abdomen pelvis wo/w IV con Today R10.2 - Pelvic and perineal pain Coding Level of Care Code Est Pt Level 3 (67424) Diagnoses SI (sacroiliac) joint dysfunction M53.3 Spondylosis of lumbar region without myelopathy or radiculopathy M47.816 Facet arthropathy, lumbar M47.816 Disc degeneration, lumbar M51.369 Chronic pain syndrome G89.4 Pelvic pain R10.2
== END 2024-05-17 09:30 | disposition home or self-care (01) ==
PROVIDERS: PCP Student in an Organized Health Care Education/Training Program; Visit Provider Anesthesiology
DX: M53.3 Sacrococcygeal disorders, not elsewhere classified (principal); M47.816 Spondylosis without myelopathy or radiculopathy, lumbar region; M51.369 Other intervertebral disc degeneration, lumbar region without mention of lumbar back pain or lower extremity pain; G89.4 Chronic pain syndrome; R10.2 Pelvic and perineal pain
CPT/HCPCS: 99213

== ENCOUNTER → 2024-05-17 08:48 | Outpatient (BNVA) | payer OTHER, SELFPAY | PROVIDERS: PCP Student in an Organized Health Care Education/Training Program; Visit Provider Anesthesiology | DX: M47.816 Spondylosis without myelopathy or radiculopathy, lumbar region (principal); M51.369 Other intervertebral disc degeneration, lumbar region without mention of lumbar back pain or lower extremity pain; G89.4 Chronic pain syndrome; M53.3 Sacrococcygeal disorders, not elsewhere classified; R10.2 Pelvic and perineal pain | CPT/HCPCS: 99212 ==

== ENCOUNTER 2024-05-21 10:21 | Outpatient (REF) | payer OTHER, SELFPAY ==
--- NOTE | ~2024-05-21 | XR_ITS ---
EXAMINATION: XR PELVIS CLINICAL INFORMATION: Pelvic and perineal pain R10.2. COMPARISON: CT Abdomen pelvis without IV contrast 05/10/2024 TECHNIQUE: AP and lateral views of the pelvis. FINDINGS: No fracture. Hip joint spaces are maintained. Alignment is anatomic. Sacroiliac joints and pubic symphysis are normal. No abnormal soft tissue calcifications. Spondylosis of the partially visualized lumbar sacral spine with bilateral facet arthrosis at the L4-L5 and L5-S1 levels unchanged. XR/XR pelvis 1-2V IMPRESSION: 1. No acute abnormality of the pelvis. 2. Spondylosis of the partially visualized lumbar sacral spine. Electronically signed by: Link Martin MD 07/17/2024 09:05 AM [facility]
[2024-05-21 10:44] LABS: MANUAL DIFF FLAG NO
[2024-05-21 11:00] LABS: Basophils Percent Auto 0.3 % (0-2); Eosinophils Absolute Auto 0.1 X10*3/uL (0.0-0.4); Eosinophils Percent Auto 1.8 % (0-4); Hematocrit 41.4 % (37.0-47.0); Hemoglobin 13.7 g/dl (12.0-16.0); Imm Gran Abs Auto 0.02 X10*3/uL (0.00-0.03); Imm Gran Pct Auto 0.3 % (0.0-0.4); Lymphocytes Absolute Auto 1.4 X10*3/uL (1.2-4.9); Lymphocytes Percent Auto 20.8 % (20-40); Mean Corpuscular HGB Conc 33.1 g/dl (31.0-35.0); Mean Corpuscular Hemoglobin 29.3 pg (27.0-33.0); Mean Corpuscular Volume 88.5 fL (80.0-98.0); Mean Platelet Volume 10.4 fL (9.4-12.3); Monocytes Absolute Auto 0.3 X10*3/uL (0.1-1.2); Monocytes Percent Auto 4.2 % (2-11); Neutrophils Absolute Auto 4.8 x10*3/uL (2.0-8.3); Neutrophils Percent Auto 72.6 % (45-73); Platelet Count 193 X10*3/uL (160-400); Red Blood Count 4.68 X10*6/uL (4.20-5.50); Red Cell Distribution Width 12.8 % (11.0-16.0); White Blood Count 6.6 X10*3/uL (4.8-10.8)
[2024-05-21 11:27] LABS: Alanine Aminotransferase 20 U/L (0-31); Albumin Level 3.8 g/dL (3.5-5.0); Alkaline Phosphatase 84 U/L (39-117); Anion Gap 8 (12-20); Aspartate Amino Transferase 17 U/L (5-31); Bilirubin Total 0.4 mg/dL (0.0-1.0); Blood Urea Nitrogen 16 mg/dL (9-16); Calcium 9.4 mg/dL (8.4-10.2); Carbon Dioxide 31 mmol/L (22-29); Chloride 106 mmol/L (96-108); Estimated Glomerular Filt Rate > 60; Glucose Random 179 mg/dL (60-115); Potassium 3.8 mmol/L (3.3-5.1); Sodium 141 mmol/L (135-145); Total Protein 6.4 g/dL (6.5-8.0)
== END 2024-05-21 10:22 | disposition home or self-care (01) ==
LOC: HO.XRAY 10:21
PROVIDERS: PCP Student in an Organized Health Care Education/Training Program; Visit Provider Anesthesiology
DX: M53.3 Sacrococcygeal disorders, not elsewhere classified (principal); M47.816 Spondylosis without myelopathy or radiculopathy, lumbar region; M51.369 Other intervertebral disc degeneration, lumbar region without mention of lumbar back pain or lower extremity pain; G89.4 Chronic pain syndrome; R10.2 Pelvic and perineal pain; K62.89 Other specified diseases of anus and rectum; R19.7 Diarrhea, unspecified; Z98.84 Bariatric surgery status
CPT/HCPCS: 36415; 72170; 80053; 85025; 99212

== ENCOUNTER 2024-05-21 11:35 | Outpatient (AMB) | payer OTHER, SELFPAY ==
--- NOTE | 2024-05-21 11:36 | MHC.OFFVIS ---
Vital Signs 05/21/24 11:45 Height 5 ft 3 in Weight 149 lb BMI 26.4 BP 116/58 L Blood Pressure Location Lt brachial Position Sitting Respiration 14 Pulse 84 Pulse Source Pulse Oximeter Pulse Oximetry (%) 96 Oxygen Delivery Method Room Air Intake Visit Reasons: FU per dr Quintana Intake Note: Patient comes in for follow up. reports pain 9/10. Allergies prochlorperazine [From Compazine] Allergy (Severe, Verified 05/21/24 11:46) Seizure Penicillins Allergy (Intermediate, Verified 05/21/24 11:46) HIVES sulfamethoxazole [From BACTRIM] Allergy (Intermediate, Verified 05/21/24 11:46) BLISTERS- DELGADO - NERVE ENDINGS IN HAND/ERYTHEMA MULTIFORM trimethoprim [From BACTRIM] Allergy (Intermediate, Verified 05/21/24 11:46) BLISTERS- [place]O - NERVE ENDINGS IN HAND/ERYTHEMA MULTIFORM latex [Latex] Allergy (Mild, Verified 05/21/24 11:46) RASH transparent dressing [Tegaderm] Adverse Reaction (Severe, Verified 05/21/24 11:46) Redness of Skin theophylline Adverse Reaction (Intermediate, Verified 05/21/24 11:46) TACHYCARDIA HPI Comments Details: Nayely is in my office today with continuation of complain on severe lower back upper pelvis pain now bilaterally with reports of frequent bowel movements, she reports that yesterday she had 6 BMs. I sent her today to CMP and CBC there is no major changes. I also send her on recommendations of the insurance company to x-ray of the pelvis, the x-rays not read however I do not see any significant changes which could be consistent with retro pelvic hematoma or abscess. Her while blood count is normal 6.6. Patient requested me to send her for urinalysis today although the UTI with this complains is unlikely a finding. I recommended her to go to primary care physician with frequent BMs and low back pain. I told her that I will schedule her for MRI of abdomen and pelvis although I am not sure if her insurance company will cover this study. She reports now bilateral lower back pain with radiation to the rectum. It is hardly unlikely that now this bilateral pain is a result of unilateral diagnostic sacroiliac joint injection. She also reported that she has history of bariatric surgery in the past I recommended her to go to bariatric surgeries office and report frequent BMs and pain in the lower back and pain in the bilateral groins, as well as pain in the rectum and frequent bowel movements. Prior: very pleasant 63 years old female who presents in my office with complains on lower back pain with radiation into the left lower extremity. She reports that this pain started more than 1 year ago. She denies any inciting events, she reported the pain started 1 day when she woke up from this pain. She reports that she can not sleep normally because of her pain. She can not do activities of daily living with difficulty. She can not take care of herself and she can not function normally. 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 She reports that pain affects her ability to work. She reports that heat applications as well as cold applications make his pain worse. The movements make his pain worse. She had physical [place] in the [place] [facility] [place] and reported aggravation of pain and no help. She tried lidocaine patches [id number] and reported no pain improvement. She had an MRI done in [facility] and results of this MRI dictated as below. She was examined by neurosurgeon Dr. Messina and Dr. Messina did not find any reason to perform neurosurgery on this patient. Dr. Wood referred this patient to us to perform left sacroiliac joint injection. Sacroiliac joint injections was performed on 04/24/2024. Unfortunately she did not report pain improvement after the injection. She reported only pain aggravation after the injection. Her past medical history significant for morbid obesity. She had gastric bypass and she has since then lost a lot of weight. She also reported asthma and type 2 diabetes which are now under good control after she completed gastric bypass surgery. Her surgical history significant for upper lumbar lower thoracic laminotomy without any hardware insertion. She has history hysterectomy and mentioned above gastric bypass. She admits smoking cigarettes she admits that she is trying to stop smoking. She smokes 2 cigarettes a day at this time. She drinks no alcohol drinks 1 cup of coffee a day she denies soda she denies recreational drugs. [facility] Medical History Abscess Abdominal pain Infection of skin due to methicillin resistant Staphylococcus aureus (MRSA) Numbness of right hand COVID-19 Sebaceous cyst Cubital tunnel syndrome on left Contusion of right ankle Numbness and tingling in left hand Left hand pain Stiffness of left hand joint Emesis Overweight (BMI 25.0-29.9) Borderline diabetes Dyslipidemia Non-toxic multinodular goiter Diabetes type 2, controlled History of restless legs syndrome Anxiety Depression High cholesterol Asthma DVT (deep venous thrombosis) GERD (gastroesophageal reflux disease) Anastomotic ulcer Surgical History Hx of colonoscopy H/O removal of cyst (02/03/23) History of removal of cyst (07/28/22) Hx of cholecystectomy History of surgery History of surgery on left wrist Hx of elbow surgery History of excision of epidermal inclusion cyst (03/23/22) Hx of excision of epidermal inclusion cyst (12/25/21) History of excision of mass (10/26/21) S/P trigger finger release History of tooth extraction Hx of hand surgery Hx of esophagogastroduodenoscopy S/P gastric bypass History of hysterectomy Family History Mother Diabetes mellitus CHF (congestive heart failure) Kidney failure Cervical cancer Brother No problems noted. Brother No problems noted. 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 Review of Systems Const All systems reviewed & are unremarkable except as noted in HPI and below ENT Reports Normal hearing present Neuro Reports Normal hearing present, Denies Abnormal speech present, Denies confusion and Denies Sensory deficit (Neuro) Psych Denies confusion Physical Exam Vital Signs: Last Vital Signs Pulse 84 05/21/24 11:45 Resp 14 05/21/24 11:45 BP 116/58 L 05/21/24 11:45 Pulse Ox 96 05/21/24 11:45 Oxygen Delivery Method Room Air 05/21/24 11:45 BMI result Body Mass Index 26.4 Const General: no acute distress; No confusion Orientation/consciousness: patient oriented x3 and No confusion Eyes General: appearance normal, both eyes and all related structures Pupils: Equal, round and reactive pupils present EOM: EOMs intact bilaterally Neck Neck: Yes full ROM Chest Chest palpation & inspection: normal inspection of the chest Resp Effort & Inspection: normal respiratory effort, able to speak in complete sentences, normal respiratory pattern, no audible wheezes and no cough Cardio Jugular venous distension: no JVD GI Inspection: Yes normal to inspection Back/Spine/Pelvis Other: Able to stand on bilateral heels and bilateral tiptoes without difficulty however reports pain aggravation. Normal strength of bilateral lower extremities. Reports difficulty sitting for a long period of time. Reports flexing forward and flexing backwards both aggravate her pain however flexing forward aggravate her pain more than flexing backwards. Joshua test is positive on the left. Gaenslen test is positive on the left. Lateral rotation and medial rotation of the hip are positive for pain increase in the projection of sacroiliac joint. SLR is positive on the left. Dorsiflexion of the foot is positive on the left. There is severe tenderness on palpation in projection of mostly L4-5 and S1 vertebra spinal regions as well as paraspinal regions on the left. Loading test is positive bilaterally. Neuro General: patient oriented x3, gait normal and No confusion Cranial nerves: Yes CN's II-XII intact bilaterally, Yes Equal, round and reactive pupils present, Yes Normal hearing present and Yes Ability to bilaterally elevate shoulders present Speech: No Abnormal speech present Gait exam (Neuro): Normal gait present Motor exam (neuro): 5/5 motor strength present throughout Sensory Exam: No Sensory deficit (Neuro) Extrem General: No pedal edema Psych Speech and movement: Normal speech and movement present Affect: normal affect Attitude: cooperative Thought process: Normal thought process present Thought content: Normal thought content present Insight: Good insight present (Psych) Judgement: Good judgement present (Psych) Results Reviewed Results Reviewed: MR LUMBAR SPINE WITHOUT CONTRAST CLINICAL INFORMATION: Low back pain, SI joint dysfunction. COMPARISON: Lumbar radiographs 03/09/2023, MRI lumbar spine 09/22/2017. TECHNIQUE: MRI of the lumbar spine was obtained using routine sequences without the administration of intravenous contrast. FINDINGS: This examination assumes the presence of 5 lumbar-type vertebral bodies. For the purposes of this examination, the L5-S1 intervertebral disc space is visualized on axial series 5 image 28. The normal lumbar lordosis is preserved. Grade 1 anterolisthesis of L4-L5 and L5-S1 with trace retrolisthesis of T12-L1 and L3-L4. Multilevel Schmorl's nodes are noted. No acute compression deformity. Edema along the posterior elements of L5/S1 extending into the right posterior S1 vertebral body, likely on the basis of advanced degenerative change. The conus medullaris and cauda equina nerve roots are unremarkable; the conus terminates at the level of L1. Partially visualized degenerative changes of the lower thoracic spine without high-grade spinal canal or neural foraminal stenosis. L1-L2: Small left subarticular disc protrusion without significant spinal canal stenosis. The neural foramen are patent. L2-L3: Facet arthropathy. The spinal canal and neural foramen are patent. L3-L4: Eccentric left disc bulge and osteophytic ridging with facet arthropathy and ligamentum flavum redundancy. Mild spinal canal stenosis with narrowing of the lateral recesses. There is [id number] left and moderate right neural foraminal stenosis with impingement of the exiting left greater than right L3 nerve roots. Abutment of the exiting left L3 nerve root in the far lateral space by left extraforaminal disc protrusion. L4-L5: Disc bulge and advanced facet arthropathy with ligamentum flavum redundancy. There is asymmetric narrowing of the left thecal sac secondary to prominent left-sided ligamentum flavum redundancy. Mild spinal canal stenosis. Mild narrowing of the left neural foramen with exiting nerve root abutment by facet arthropathy. L5-S1: Trace disc bulge. Severe facet arthropathy with small bilateral facet joint effusions. Redundancy of the ligamentum flavum. The spinal canal is patent. Mild narrowing of the right greater than left neural foramen. Impression: At L3-L4 there is [id number] left and moderate right neural foraminal stenosis with left greater than right exiting nerve root impingement. Additional areas of mild spinal canal and neural foraminal stenosis as described above. Advanced facet arthropathy in the lower lumbar spine with edema in the posterior elements at L5-S1 extending into the posterior right S1 vertebral body, likely on the basis of advanced degenerative change. Personally examined the MRI images and found no endplate edema on the patient's Images. Assessment & Plan Assessment & Plan (1) SI (sacroiliac) joint dysfunction: Code(s): M53.3 - Sacrococcygeal disorders, not elsewhere classified Category: Medical (2) Spondylosis of lumbar region without myelopathy or radiculopathy: Code(s): M47.816 - Spondylosis without myelopathy or radiculopathy, lumbar region Category: Medical (3) Facet arthropathy, lumbar: Code(s): M47.816 - Spondylosis without myelopathy or radiculopathy, lumbar region Category: Medical (4) Disc degeneration, lumbar: Code(s): M51.369 - Other intervertebral disc degeneration, lumbar region without mention of lumbar back pain or lower extremity pain Category: Medical (5) Chronic pain syndrome: Code(s): G89.4 - Chronic pain syndrome Category: Medical (6) Pelvic pain: Code(s): R10.2 - Pelvic and perineal pain Category: Medical (7) Rectal pain: Code(s): K62.89 - Other specified diseases of anus and rectum Category: Medical (8) Diarrhea: Code(s): R19.7 - Diarrhea, unspecified Category: Medical Plan The patient received left diagnostic sacroiliac joint injection, she reported no help from sacroiliac joint injection. Started to complain on pain on the left 1st radiating to the rectum. Reported frequent BMs. I requested to repeat CT scan from the insurance company, my actual concerns were retroperitoneal hematoma versus retroperitoneal abscess. On the CBC today there is no left shift and there is no elevated white count. Therefore unlikely abscess. There is no shift of the pelvic organs the x-ray which could be evident of hematoma. Now she reports that pain is bilateral and she reports at least 6 BMs in 24 hours. I will send her for the MRI of the abdomen and pelvis. I also recommended her to go to primary care physician and complain on those pains and frequent BMs as soon as possible. Consult from her bariatric surgery team maybe also helpful for establishing a proper diagnosis of this patient. Orders: Orders Comprehensive Met. Panel Today K62.89 - Other specified diseases of anus and rectum, R10.2 - Pelvic and perineal pain AMB Urinalysis Automated Today Z13.9 - Encounter for screening, unspecified Complete Blood Count Auto Diff Today K62.89 - Other specified diseases of anus and rectum, R10.2 - Pelvic and perineal pain MR abdomen wo/w con Today G89.4 - Chronic pain syndrome, K62.89 - Other specified diseases of anus and rectum, R10.2 - Pelvic and perineal pain, R19.7 - Diarrhea, unspecified Patient Instructions: I here by testify that I spent 32 minutes in conversation this patient as well as evaluating her prior records, prior diagnostic studies, prior history planning her care and organizing this note. Coding Level of Care Code Est Pt Level 4 (13271) Diagnoses SI (sacroiliac) joint dysfunction M53.3 Spondylosis of lumbar region without myelopathy or radiculopathy M47.816 Facet arthropathy, lumbar M47.816 Disc degeneration, lumbar M51.369 Chronic pain syndrome G89.4 Pelvic pain R10.2 Rectal pain K62.89 Diarrhea R19.7
[2024-05-21 11:45] VITALS: BP 116/58; PULSE 84; RESP 14; O2SAT 96; BMI 26.4
== END 2024-05-21 11:54 | disposition home or self-care (01) ==
PROVIDERS: PCP Student in an Organized Health Care Education/Training Program; Visit Provider Anesthesiology
DX: M53.3 Sacrococcygeal disorders, not elsewhere classified (principal); M47.816 Spondylosis without myelopathy or radiculopathy, lumbar region; M51.369 Other intervertebral disc degeneration, lumbar region without mention of lumbar back pain or lower extremity pain; G89.4 Chronic pain syndrome; R10.2 Pelvic and perineal pain; K62.89 Other specified diseases of anus and rectum; R19.7 Diarrhea, unspecified
CPT/HCPCS: 99214

== ENCOUNTER 2024-05-21 12:35 | Emergency (ER) | payer OTHER, SELFPAY | END 2024-05-21 13:11 | disposition left against medical advice (07) | PROVIDERS: Emergency Provider Emergency Medicine Emergency Medical Services; PCP Student in an Organized Health Care Education/Training Program | DX: M54.50 Low back pain, unspecified (principal); Z53.21 Procedure and treatment not carried out due to patient leaving prior to being seen by health care provider ==

== ENCOUNTER 2024-05-22 04:58 | Emergency (ER) | payer OTHER, SELFPAY ==
[2024-05-22 05:16] VITALS: BP 127/72; PULSE 83; RESP 18; TEMP 36.6; O2SAT 97; BMI 24.3
--- NOTE | 2024-05-22 05:34 | MHC.EDTECH ---
Patient brought into triage area,labs and urine obtained and sent to lab
[2024-05-22 05:49] LABS: MANUAL DIFF FLAG NO
[2024-05-22 05:50] LABS: Basophils Percent Auto 0.3 % (0-2); Eosinophils Absolute Auto 0.2 X10*3/uL (0.0-0.4); Eosinophils Percent Auto 3.3 % (0-4); Hematocrit 37.8 % (37.0-47.0); Hemoglobin 12.8 g/dl (12.0-16.0); Imm Gran Abs Auto 0.01 X10*3/uL (0.00-0.03); Imm Gran Pct Auto 0.1 % (0.0-0.4); Lymphocytes Absolute Auto 2.6 X10*3/uL (1.2-4.9); Lymphocytes Percent Auto 35.8 % (20-40); Mean Corpuscular HGB Conc 33.9 g/dl (31.0-35.0); Mean Corpuscular Hemoglobin 30.1 pg (27.0-33.0); Mean Corpuscular Volume 88.9 fL (80.0-98.0); Mean Platelet Volume 10.1 fL (9.4-12.3); Monocytes Absolute Auto 0.4 X10*3/uL (0.1-1.2); Monocytes Percent Auto 6.1 % (2-11); Neutrophils Absolute Auto 3.9 x10*3/uL (2.0-8.3); Neutrophils Percent Auto 54.4 % (45-73); Platelet Count 182 X10*3/uL (160-400); Red Blood Count 4.25 X10*6/uL (4.20-5.50); Red Cell Distribution Width 12.8 % (11.0-16.0); White Blood Count 7.2 X10*3/uL (4.8-10.8)
[2024-05-22 05:51] LABS: Appearance Urine Clear; Color Urine Dark Yellow; Glucose Urine UA Negative (Negative); Leukocyte Esterase Urine Negative (Negative); Nitrite Urine Negative (Negative); PH 5.5 (5.0-9.0); Specific Gravity - Urine >= 1.030 (1.005-1.025); Urine Blood Negative (Negative); Urine Ketones Negative (Negative); Urine Protein Negative (Neg-Trace)
[2024-05-22 05:54] LABS: Bacteria Urine None Seen (None Seen); Hyaline Casts Urine 0-2 /LPF (0-2); RBC Urine 0-2 /HPF (0-2); Squamous Epithelial Cell Urine 0-2 /HPF (0-2); WBC Urine 0-5 /HPF (0-5)
[2024-05-22 06:06] LABS: Alanine Aminotransferase 21 U/L (0-31); Albumin Level 3.6 g/dL (3.5-5.0); Alkaline Phosphatase 76 U/L (39-117); Anion Gap 11 (12-20); Aspartate Amino Transferase 16 U/L (5-31); Bilirubin Total 0.3 mg/dL (0.0-1.0); Blood Urea Nitrogen 17 mg/dL (9-16); Calcium 8.4 mg/dL (8.4-10.2); Carbon Dioxide 27 mmol/L (22-29); Chloride 106 mmol/L (96-108); Creatinine Clr Calc Pharmacy 73.6; Estimated Glomerular Filt Rate > 60; Glucose Random 204 mg/dL (60-115); Potassium 3.6 mmol/L (3.3-5.1); Sodium 140 mmol/L (135-145); Total Protein 6.2 g/dL (6.5-8.0)
[2024-05-22 07:04] VITALS: BP 118/72; PULSE 74; RESP 16; O2SAT 97
--- NOTE | 2024-05-22 07:06 | ED.BACK ---
HPI - Back Pain/Injury General Chief Complaint: Back Pain/Injury Stated Complaint: severe back pain Time Seen by Provider: 05/22/24 07:03 Source: patient and old records reviewed Mode of arrival: ambulatory Limitations: no limitations History of Present Illness ED Provider: JOCE MORGAN Narrative: 63 yo female with chronic pain from pain management (Lilian) here, arthritis, bariatric surgery patient lap bypass, asthma, HLD, DM, anastomotic ulcer here with c/o months of worsening back pain and then loose stools has not seen bariatric has seen pain management and neurospine after MRI - MRI did not show clear nerve root compression and surgery not recommended at that time. She also just had CT scan 05/10 with same pain no acute findings reported. She tells me she is sent in for MRI of low back by pain management but then states it is being ordered outpatient. At this time no b/b incontinence, no saddle anesthesia symptoms > 1 month with outpatient follow up. MD elicited complaint: back pain Pertinent past history: prior back pain Onset (ago): month(s) Timing: progressively worsening Severity: moderate Quality: sharp, aching and throbbing Location: lumbar spine Radiation: abdomen Exacerbating factors: movement and other (she notes she feels dizzy when she bends over) Relieving factors: immobilization Context: unknown Associated symptoms: a change in bowel habits Work related injury: No Related Data Home Medications ?Medication ?Instructions ?Recorded ?Confirmed hydrochlorothiazide 12.5 mg capsule 12.5 mg PO DAILY 05/09/20 05/17/24 hydroxyzine HCl 25 mg tablet 50 mg PO BEDTIME 06/04/20 05/17/24 sertraline 100 mg tablet 1 tab PO BEDTIME 10/20/21 05/17/24 tizanidine 4 mg tablet 1 tab PO BEDTIME PRN Pain 10/20/21 05/17/24 cyanocobalamin (vitamin B-12) 1,000 mcg PO QAM 06/03/22 05/17/24 1,000 mcg tablet metformin 500 mg tablet,extended 500 mg PO BID 06/03/22 05/17/24 release 24 hr albuterol sulfate 90 mcg/actuation 2 puff inhalation Q4-6H PRN 08/25/23 05/17/24 aerosol inhaler Shortness Of Breath Or Wheezing oxycodone 5 mg tablet 5 mg PO Q6H PRN severe pain 09/27/23 05/17/24 pramipexole 0.5 mg tablet 0.5 mg PO TID 09/27/23 05/17/24 zolpidem 5 mg tablet 5 mg PO BEDTIME PRN insomnia 09/27/23 05/17/24 ferrous sulfate 325 mg (65 mg 325 mg PO QAM 10/27/23 05/17/24 iron) tablet ondansetron HCl 4 mg tablet 4 mg PO Q12H PRN nausea/vomiting 02/03/24 05/17/24 varenicline 1 mg tablet 1 mg PO BID 04/24/24 05/17/24 Previous Rx's ?Medication ?Instructions ?Recorded cholecalciferol (vitamin D3) 50 50 mcg PO DAILY #30 caps 12/15/20 mcg (2,000 unit) capsule fluticasone propionate 50 2 spray intranasal DAILY #16 grams 06/21/21 mcg/actuation nasal spray,suspension (Flonase Allergy Relief) blood-glucose meter (FreeStyle #1 ea 08/21/21 Lite Meter kit) blood sugar diagnostic (FreeStyle #150 strips 03/30/22 Lite Strips) thiamine HCl (vitamin B1) 100 mg 100 mg PO DAILY #90 tabs 06/07/22 tablet lidocaine 5 % topical patch 1 patch topical DAILY #15 ea 11/10/22 (Lidoderm) cyclobenzaprine 10 mg tablet 10 mg PO Q8H #20 tabs 01/07/23 meclizine 25 mg tablet 25 mg PO TID PRN dizziness #20 tabs 02/11/23 albuterol sulfate 1.25 mg/3 mL 1.25 mg (3 mL) inhalation QID PRN 06/11/23 solution for nebulization shortness of breath or wheezing #90 mL diclofenac sodium 1 % topical gel 2 g topical BID PRN pain (scale 07/18/23 (Aleve (diclofenac)) score 4-6) #100 grams pantoprazole 40 mg tablet,delayed 40 mg PO Q12H #60 tabs 12/06/23 release metronidazole 500 mg tablet 500 mg PO BID #14 tabs 03/16/24 Allergies Allergy/AdvReac Type Severity Reaction Status Date / Time prochlorperazine Allergy Severe Seizure Verified 05/22/24 05:16 [From Compazine] Penicillins Allergy Intermediate HIVES Verified 05/22/24 05:16 sulfamethoxazole Allergy Intermediate BLISTERS- Verified 05/22/24 05:16 [From BACTRIM] DELGADO - NERVE ENDINGS IN HAND/ERYTHEMA MULTIFORM trimethoprim [From BACTRIM] Allergy Intermediate BLISTERS- Verified 05/22/24 05:16 DELGADO - NERVE ENDINGS IN HAND/ERYTHEMA MULTIFORM latex [Latex] Allergy Mild RASH Verified 05/22/24 05:16 transparent dressing AdvReac Severe Redness of Verified 05/22/24 05:16 [Tegaderm] Skin theophylline AdvReac Intermediate TACHYCARDIA Verified 05/22/24 05:16 Review of Systems Review of Systems: Constitutional : No Weight loss, No Fever, No Chills, ENT/Mouth : No Hearing loss, No Ear Pain, No Nasal Congestion, No Sinus Pain, No Hoarseness, No sore throat, No Rhinorrhea, No Swallowing Difficulty Cardiovascular : No Chest Pain, No SOB Respiratory : No Cough, No Dyspnea Gastrointestinal : No Nausea, No Vomiting, pos Diarrhea, pos abdominal Pain, No Hematochezia, No Melena Genitourinary : No Dysuria, No Urinary Frequency, No Hematuria, No Urinary Incontinence, Musculoskeletal : positive back pain Skin : No Skin Lesions, No rash Neuro : No Weakness, No Numbness, pos Paresthesias, no loss of bowel or bladder incontinence, no saddle anesthesia, pos dizziness All other systems reviewed and are negative PMFSH Past Medical History Attestation statement: The following information was validated with the patient. Source: old records reviewed Medical History Abscess Abdominal pain Infection of skin due to methicillin resistant Staphylococcus aureus (MRSA) Numbness of right hand COVID-19 Sebaceous cyst Cubital tunnel syndrome on left Contusion of right ankle Numbness and tingling in left hand Left hand pain Stiffness of left hand joint Emesis Overweight (BMI 25.0-29.9) Borderline diabetes Dyslipidemia Non-toxic multinodular goiter Diabetes type 2, controlled History of restless legs syndrome Anxiety Depression High cholesterol Asthma DVT (deep venous thrombosis) GERD (gastroesophageal reflux disease) Anastomotic ulcer Surgical History Hx of colonoscopy H/O removal of cyst (02/03/23) History of removal of cyst (07/28/22) Hx of cholecystectomy History of surgery History of surgery on left wrist Hx of elbow surgery History of excision of epidermal inclusion cyst (03/23/22) Hx of excision of epidermal inclusion cyst (12/25/21) History of excision of mass (10/26/21) S/P trigger finger release History of tooth extraction Hx of hand surgery Hx of esophagogastroduodenoscopy S/P gastric bypass History of hysterectomy Family History Family History Mother Diabetes mellitus CHF (congestive heart failure) Kidney failure Cervical cancer Brother No problems noted. Brother No problems noted. 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 Oriented X3. No acute distress. Eyes: Pupils equal, round and reactive to light. ENT: Pharynx normal. Neck: Normal inspection. Neck supple. CVS: Normal heart rate and rhythm. Pulses normal. Respiratory: No respiratory distress. Breath sounds normal. Abdomen: Soft and nontender. Back: ttp along bilateral SI joints Skin: Skin warm and dry. Normal skin color. Normal skin turgor. Extremities: No lower extremity edema. No calf ttp Neuro: Oriented X 3. No motor deficit. No sensory deficit. L5 5/5 SILT inner thigh Medical Decision Making Medical Decision Making MDM Narrative: 63 yo female with chronic pain from pain management (Lilian) here, arthritis, bariatric surgery patient lap bypass, asthma, HLD, DM, anastomotic ulcer here with c/o chronic low back pain with diarrhea radiating to the back - she is neuro intact no new features no fevers already had MRI and CT scan with that had the pain. The patient has good outpatient follow up. I do not think she needs emergent MRI of low back. There are no concerning features today. She will follow up as outpatient Differential Diagnosis Differential Diagnoses: The differential diagnosis associated with the presentation includes chronic back pain, chronic diarrhea Admission/Observation Consideration of admission/observation: Escalation of care including admission/observation considered this has been 1+ month of issues which actually sounds like more per EMR no cauda equina symptoms can follow up with pain management and bariatric surgery Lab Data MDM Lab Attestation statement: I reviewed the patient's lab results. 05/22/24 05:33 05/22/24 05:33 Labs: Lab Results 05/22/24 Range/Units 05:33 WBC 7.2 (4.8-10.8) X10*3/uL RBC 4.25 (4.20-5.50) X10*6/uL Hgb 12.8 (12.0-16.0) g/dl Hct 37.8 (37.0-47.0) % MCV 88.9 (80.0-98.0) fL MCH 30.1 (27.0-33.0) pg MCHC 33.9 (31.0-35.0) g/dl RDW 12.8 (11.0-16.0) % Plt Count 182 (160-400) X10*3/uL MPV 10.1 (9.4-12.3) fL Immature Gran % (Auto) 0.1 (0.0-0.4) % Neut % (Auto) 54.4 (45-73) % Lymph % (Auto) 35.8 (20-40) % Coke % (Auto) 6.1 (2-11) % Eos % (Auto) 3.3 (0-4) % Baso % (Auto) 0.3 (0-2) % Lymph # (Auto) 2.6 (1.2-4.9) X10*3/uL Coke # (Auto) 0.4 (0.1-1.2) X10*3/uL Eos # (Auto) 0.2 (0.0-0.4) X10*3/uL Baso # (Auto) 0.0 (0.0-0.2) X10*3/uL Abs Immat Gran (auto) 0.01 (0.00-0.03) X10*3/uL Absolute Neuts (auto) 3.9 (2.0-8.3) x10*3/uL Absolute Nucleated RBC 0.000 (0.0-0.012) X10*3/uL Nucleated RBC % (auto) 0.0 (0.0-0.2) /100WBC Sodium 140 (135-145) mmol/L Potassium 3.6 (3.3-5.1) mmol/L Chloride 106 (96-108) mmol/L Carbon Dioxide 27 (22-29) mmol/L Anion Gap 11 L (12-20) BUN 17 H (9-16) mg/dL Creatinine 0.78 (0.5-1.4) mg/dL Estim Creat Clear Calc 73.6 Estimated GFR > 60 Random Glucose 204 H (60-115) mg/dL Calcium 8.4 D (8.4-10.2) mg/dL Total Bilirubin 0.3 (0.0-1.0) mg/dL AST 16 (5-31) U/L ALT 21 (0-31) U/L Alkaline Phosphatase 76 (39-117) U/L Total Protein 6.2 L (6.5-8.0) g/dL Albumin 3.6 (3.5-5.0) g/dL Urine Color Dark Yellow Urine Appearance Clear Urine pH 5.5 (5.0-9.0) Ur Specific Aylett >= 1.030 H (1.005-1.025) Urine Protein Negative (Neg-Trace) mg/dL Urine Glucose (UA) Negative (Negative) mg/dL Urine Ketones Negative (Negative) mg/dL Urine Blood Negative (Negative) Urine Nitrite Negative (Negative) Ur Leukocyte Esterase Negative (Negative) Urine RBC 0-2 (0-2) /HPF Urine WBC 0-5 (0-5) /HPF Ur Squamous Epith Cells 0-2 (0-2) /HPF Urine Bacteria None Seen (None Seen) Hyaline Casts 0-2 (0-2) /LPF External Record Review External record reviewed: Inpatient record, Office record, Outpatient record and Prior outpatient radiology Prescription Management I considered prescription management with: Pain Medication Discharge Plan Discharge Clinical Impression: Chronic diarrhea, SI (sacroiliac) joint dysfunction Patient Disposition: Home, Self-Care Instructions: Chronic Back Pain (DC), Nutrition Tips for Relief of Diarrhea (ED) Additional Instructions: please follow up with pain management and bariatric surgery given your complaints return for any loss of control of bowel or bladder any numbness in private area please continue to follow up Prescriptions: No Action cholecalciferol (vitamin D3) 50 mcg (2,000 unit) capsule 50 mcg PO DAILY Qty: 30 11RF (DME) FreeStyle Lite Strips Strip See Rx Instructions .ROUTE .COMPLEX Qty: 150 6RF Dose Instruction: USE TO TEST BLOOD SUGAR TWICE DAILY Rx Instructions: USE TO TEST BLOOD SUGAR TWICE DAILY thiamine HCl (vitamin B1) 100 mg tablet 100 mg PO DAILY Qty: 90 3RF pantoprazole 40 mg tablet,delayed release (DR/EC) 40 mg PO Q12H Qty: 60 6RF hydroxyzine HCl 25 mg tablet 50 mg PO BEDTIME sertraline 100 mg tablet 1 tab PO BEDTIME tizanidine 4 mg tablet 1 tab PO BEDTIME PRN (Reason: Pain) fluticasone propionate [Flonase Allergy Relief] 50 mcg/actuation spray,suspension 2 spray intranasal DAILY Qty: 16 0RF Rx Instructions: administer into each nostril metformin 500 mg tablet extended release 24 hr 500 mg PO BID albuterol sulfate 1.25 mg/3 mL solution for nebulization 1.25 mg inhalation QID PRN (Reason: shortness of breath or wheezing) Qty: 90 0RF albuterol sulfate 90 mcg/actuation Hfa Aerosol Inhaler 2 puff INHALATION Q4-6H PRN (Reason: Shortness Of Breath Or Wheezing) metronidazole 500 mg tablet 500 mg PO BID Qty: 14 0RF lidocaine [Lidoderm] 5 % adhesive patch,medicated 1 patch topical DAILY Qty: 15 0RF Rx Instructions: leave on most painful area for up to 12 hrs cyclobenzaprine 10 mg tablet 10 mg PO Q8H Qty: 20 0RF meclizine 25 mg tablet 25 mg PO TID PRN (Reason: dizziness) Qty: 20 0RF diclofenac sodium [Aleve (diclofenac)] 1 % gel 2 g topical BID PRN (Reason: pain (scale score 4-6)) Qty: 100 0RF Rx Instructions: apply to single elbow, wrist or hand; for hand includes palm/fingers/back of hand hydrochlorothiazide 12.5 mg capsule 12.5 mg PO DAILY (DME) blood-glucose meter [FreeStyle Lite Meter] Kit See Rx Instructions .Route Qty: 1 0RF Rx Instructions: As directed test blood sugar two times a day cyanocobalamin (vitamin B-12) 1,000 mcg tablet 1,000 mcg PO QAM oxycodone 5 mg tablet 5 mg PO Q6H PRN (Reason: severe pain) zolpidem 5 mg tablet 5 mg PO BEDTIME PRN (Reason: insomnia) pramipexole 0.5 mg tablet 0.5 mg PO TID varenicline 1 mg tablet 1 mg PO BID ferrous sulfate 325 mg (65 mg iron) tablet 325 mg PO QAM ondansetron HCl 4 mg tablet 4 mg PO Q12H PRN (Reason: nausea/vomiting) Interventions: ED Discharge Assessment Last Done: 05/22/24 08:29 Discharge Date/Time: 05/22/24 08:30 Print Language: Belarusian
[2024-05-22 08:29] VITALS: BP 118/72; PULSE 74; RESP 16; TEMP 36.8; O2SAT 97
== END 2024-05-22 08:30 | disposition home or self-care (01) ==
PROVIDERS: Emergency Provider Emergency Medicine; PCP Student in an Organized Health Care Education/Training Program
DX: K52.9 Noninfective gastroenteritis and colitis, unspecified (principal); M53.3 Sacrococcygeal disorders, not elsewhere classified; E11.9 Type 2 diabetes mellitus without complications; E78.5 Hyperlipidemia, unspecified; J45.909 Unspecified asthma, uncomplicated; M54.59 Other low back pain; G89.4 Chronic pain syndrome; Z98.84 Bariatric surgery status
CPT/HCPCS: 36415; 80053; 81001; 85025; 99283

== ENCOUNTER 2024-06-03 11:02 | Emergency (ER) | payer OTHER, SELFPAY ==
--- NOTE | ~2024-06-03 | XR_ITS ---
EXAMINATION: XR LUMBOSACRAL SPINE CLINICAL INFORMATION: pain COMPARISON: MRI lumbar spine 12/29/2023 TECHNIQUE: Three views of the lumbosacral spine. FINDINGS: The lumbar vertebral bodies demonstrate normal height. Overall sagittal alignment appears maintained. Minimal lumbar spondylosis with marginal osteophytes, endplate degenerative changes and intervertebral disc space narrowing most prominent at L3-L4 through L5-S1. Degenerative facet arthropathy most prominent at L4-L5 and L5-S1. The lateral sacroiliac joints are intact. Surgical clips projecting over the abdomen and pelvis with sutures in the left upper quadrant. XR/XR lumbar spine 2-3V IMPRESSION: No radiographic evidence of acute abnormality involving the lumbar spine. Multilevel lumbar spondylosis as detailed. Electronically signed by: Jer Engel MD 06/03/2024 12:20 PM TIM FUNES
[2024-06-03 11:09] VITALS: BP 145/74; PULSE 97; RESP 20; TEMP 36.2; O2SAT 98; BMI 26.4
--- NOTE | 2024-06-03 13:43 | ED.GENADULT ---
HPI - General Adult General Chief complaint: Back Pain/Injury Stated complaint: back pain Time Seen by Provider: 06/03/24 13:29 Source: patient Mode of arrival: ambulatory Limitations: no limitations History of Present Illness ED Provider: David HINTON HPI narrative: 63-year-old female history of chronic back arthritis chronic back syndrome that she follows with pain management and spine doctor presents to ED for back pain exacerbation going down left leg. Patient denies any urinary/bowel incontinence. Patient denies any history of IV drug use or any immunocompromise diseases. Patient denies any dysuria, hematuria, abdominal pain, nausea, vomiting, fever, or chills. Patient denies any recent trauma. Related Data Home Medications ?Medication ?Instructions ?Recorded ?Confirmed hydrochlorothiazide 12.5 mg capsule 12.5 mg PO DAILY 05/09/20 05/17/24 hydroxyzine HCl 25 mg tablet 50 mg PO BEDTIME 06/04/20 05/17/24 sertraline 100 mg tablet 1 tab PO BEDTIME 10/20/21 05/17/24 tizanidine 4 mg tablet 1 tab PO BEDTIME PRN Pain 10/20/21 05/17/24 cyanocobalamin (vitamin B-12) 1,000 mcg PO QAM 06/03/22 05/17/24 1,000 mcg tablet metformin 500 mg tablet,extended 500 mg PO BID 06/03/22 05/17/24 release 24 hr albuterol sulfate 90 mcg/actuation 2 puff inhalation Q4-6H PRN 08/25/23 05/17/24 aerosol inhaler Shortness Of Breath Or Wheezing oxycodone 5 mg tablet 5 mg PO Q6H PRN severe pain 09/27/23 05/17/24 pramipexole 0.5 mg tablet 0.5 mg PO TID 09/27/23 05/17/24 zolpidem 5 mg tablet 5 mg PO BEDTIME PRN insomnia 09/27/23 05/17/24 ferrous sulfate 325 mg (65 mg 325 mg PO QAM 10/27/23 05/17/24 iron) tablet ondansetron HCl 4 mg tablet 4 mg PO Q12H PRN nausea/vomiting 02/03/24 05/17/24 varenicline 1 mg tablet 1 mg PO BID 04/24/24 05/17/24 Previous Rx's ?Medication ?Instructions ?Recorded cholecalciferol (vitamin D3) 50 50 mcg PO DAILY #30 caps 12/15/20 mcg (2,000 unit) capsule fluticasone propionate 50 2 spray intranasal DAILY #16 grams 06/21/21 mcg/actuation nasal spray,suspension (Flonase Allergy Relief) blood-glucose meter (FreeStyle #1 ea 08/21/21 Lite Meter kit) blood sugar diagnostic (FreeStyle #150 strips 03/30/22 Lite Strips) thiamine HCl (vitamin B1) 100 mg 100 mg PO DAILY #90 tabs 06/07/22 tablet lidocaine 5 % topical patch 1 patch topical DAILY #15 ea 11/10/22 (Lidoderm) cyclobenzaprine 10 mg tablet 10 mg PO Q8H #20 tabs 01/07/23 meclizine 25 mg tablet 25 mg PO TID PRN dizziness #20 tabs 02/11/23 albuterol sulfate 1.25 mg/3 mL 1.25 mg (3 mL) inhalation QID PRN 06/11/23 solution for nebulization shortness of breath or wheezing #90 mL diclofenac sodium 1 % topical gel 2 g topical BID PRN pain (scale 07/18/23 (Aleve (diclofenac)) score 4-6) #100 grams pantoprazole 40 mg tablet,delayed 40 mg PO Q12H #60 tabs 12/06/23 release metronidazole 500 mg tablet 500 mg PO BID #14 tabs 03/16/24 prednisone 20 mg tablet 40 mg (2 x 20 mg) PO DAILY 5 days 06/03/24 #10 tabs Allergies Allergy/AdvReac Type Severity Reaction Status Date / Time prochlorperazine Allergy Severe Seizure Verified 06/03/24 11:11 [From Compazine] Penicillins Allergy Intermediate HIVES Verified 06/03/24 11:11 sulfamethoxazole Allergy Intermediate BLISTERS- Verified 06/03/24 11:11 [From BACTRIM] DELGADO - NERVE ENDINGS IN HAND/ERYTHEMA MULTIFORM trimethoprim [From BACTRIM] Allergy Intermediate BLISTERS- Verified 06/03/24 11:11 DELGADO - NERVE ENDINGS IN HAND/ERYTHEMA MULTIFORM latex [Latex] Allergy Mild RASH Verified 06/03/24 11:11 transparent dressing AdvReac Severe Redness of Verified 06/03/24 11:11 [Tegaderm] Skin theophylline AdvReac Intermediate TACHYCARDIA Verified 06/03/24 11:11 Review of Systems Review of Systems: back pain Yes all other systems are reviewed and are negative [facility] Past Medical History Medical History Abscess Abdominal pain Infection of skin due to methicillin resistant Staphylococcus aureus (MRSA) Numbness of right hand COVID-19 Sebaceous cyst Cubital tunnel syndrome on left Contusion of right ankle Numbness and tingling in left hand Left hand pain Stiffness of left hand joint Emesis Overweight (BMI 25.0-29.9) Borderline diabetes Dyslipidemia Non-toxic multinodular goiter Diabetes type 2, controlled History of restless legs syndrome Anxiety Depression High cholesterol Asthma DVT (deep venous thrombosis) GERD (gastroesophageal reflux disease) Anastomotic ulcer Surgical History Hx of colonoscopy H/O removal of cyst (02/03/23) History of removal of cyst (07/28/22) Hx of cholecystectomy History of surgery History of surgery on left wrist Hx of elbow surgery History of excision of epidermal inclusion cyst (03/23/22) Hx of excision of epidermal inclusion cyst (12/25/21) History of excision of mass (10/26/21) S/P trigger finger release History of tooth extraction Hx of hand surgery Hx of esophagogastroduodenoscopy S/P gastric bypass History of hysterectomy Family History Family History Mother Diabetes mellitus CHF (congestive heart failure) Kidney failure Cervical cancer Brother No problems noted. Brother No problems noted. 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 Physical Exam ED Vital Signs: Vital Signs - 24 hr 06/03/24 11:09 06/03/24 14:40 Temperature 97.2 F 97.2 F Pulse Rate 97 97 Respiratory Rate 20 20 Blood Pressure 145/74 H 145/74 H Pulse Oximetry 98 98 Oxygen Delivery Method Room Air Room Air BMI result Body Mass Index 26.4 Const General: cooperative, healthy appearing, comfortable, no acute distress, well developed, alert, awake and Physically active Orientation/consciousness: patient oriented x3 [facility] Head: Yes normal to inspection, Yes No palpable skull fracture present, Yes normocephalic and Yes atraumatic Eyes General: appearance normal, both eyes and all related structures Neck Neck: Yes normal visual inspection, Yes full ROM, Yes no lymphadenopathy, Yes no meningeal signs, Yes trachea midline, Yes supple, No anterior neck swelling and No tender Chest Chest palpation & inspection: normal inspection of the chest and normal palpation of entire chest wall Resp Effort & Inspection: normal respiratory effort and able to speak in complete sentences Auscultation: clear to auscultation bilaterally Cardio Jugular venous distension: no JVD Heart sounds: S1 normal heart sound present and S2 normal heart sound present GI Inspection: Yes normal to inspection Palpation (GI): Soft to palpation, not firm, nontender, no guarding and not rigid General: Yes no CVA tenderness Back/Spine/Pelvis Back: no CVA tenderness and back tenderness (lumbar spine tenderness) Skin General skin exam: no rashes or lesions noted, elasticity normal and turgor normal Neuro General: patient oriented x3, gait normal, tone normal, moves all extremities, Normal light touch and pain sensation, no meningeal signs, no focal motor deficits, CN's II-XI intact bilaterally and normal sensation to monofilament Extrem General: Yes normal to inspection, Yes full ROM and Yes capillary refill normal Psych Appearance: grossly normal, well kempt and not disheveled Medications Administered Discontinued Medications Generic Name Dose Route Start Last Admin Trade Name Freq PRN Reason Stop Dose Admin Morphine Sulfate 4 mg 06/03/24 13:39 06/03/24 13:55 Morphine Sulfate 4 Mg/Ml Cartridge IM 06/03/24 13:40 4 mg ONCE ONE Administration Protocol Prednisone 60 mg 06/03/24 13:39 06/03/24 13:54 Prednisone 20 Mg Tablet PO 06/03/24 13:40 60 mg ONCE ONE Administration Medical Decision Making Medical Decision Making MDM Narrative: 63-year-old female presents to ED for back pain exacerbation. Patient is sent for x-ray. We will give patient morphine and prednisone re-evaluate. 2:25pm: X-ray confirms lumbar radiculopathy but no fractures. Patient's vital signs are stable. Not suspecting epidural abscess or cauda equinus syndrome. Not suspecting osteomyelitis of the spine. Patient denies any history of IV drug use or immunocompromise diseases. Patient has a contract which she can get anymore narcotics as prescription. Patient will follow up with pain management and spine doctor. Not suspecting UTI, kidney stones, or pyelonephritis. Differential Diagnosis Differential Diagnoses: The differential diagnosis associated with the presentation includes (Lumbar radiculopathy) Admission/Observation Consideration of admission/observation: Escalation of care including admission/observation considered Independent Interpretation I performed an independent interpretation of an: Plain X-Ray Radiology Impression Discussion of test interpretation with radiology: I have reviewed the radiologist's reading. Independent Historian Clinical information obtained from an independent historian. History obtained from or confirmed by: Other (Patient) External Record Review External record reviewed: Other (Pain) Discharge Plan Discharge Clinical Impression: Lumbar radiculopathy Patient Disposition: Home, Self-Care Instructions: Lumbar Radiculopathy (ED) Additional Instructions: Recommend follow-up with pain management, primary care provider, and cad specialist. Return to the ED for any urinary/bowel incontinence, inability to walk, severe back pain, paralysis tingling of lower extremities, nausea, vomiting, fever, chills, flank pain, or any other concerning symptoms. Continue taking oxycodone as prescribed.. Prescriptions: New prednisone 20 mg tablet 40 mg PO DAILY 5 Days Qty: 10 0RF No Action cholecalciferol (vitamin D3) 50 mcg (2,000 unit) capsule 50 mcg PO DAILY Qty: 30 11RF (DME) FreeStyle Lite Strips Strip See Rx Instructions .ROUTE .COMPLEX Qty: 150 6RF Dose Instruction: USE TO TEST BLOOD SUGAR TWICE DAILY Rx Instructions: USE TO TEST BLOOD SUGAR TWICE DAILY thiamine HCl (vitamin B1) 100 mg tablet 100 mg PO DAILY Qty: 90 3RF pantoprazole 40 mg tablet,delayed release (DR/EC) 40 mg PO Q12H Qty: 60 6RF hydroxyzine HCl 25 mg tablet 50 mg PO BEDTIME sertraline 100 mg tablet 1 tab PO BEDTIME tizanidine 4 mg tablet 1 tab PO BEDTIME PRN (Reason: Pain) fluticasone propionate [Flonase Allergy Relief] 50 mcg/actuation spray,suspension 2 spray intranasal DAILY Qty: 16 0RF Rx Instructions: administer into each nostril metformin 500 mg tablet extended release 24 hr 500 mg PO BID albuterol sulfate 1.25 mg/3 mL solution for nebulization 1.25 mg inhalation QID PRN (Reason: shortness of breath or wheezing) Qty: 90 0RF albuterol sulfate 90 mcg/actuation Hfa Aerosol Inhaler 2 puff INHALATION Q4-6H PRN (Reason: Shortness Of Breath Or Wheezing) metronidazole 500 mg tablet 500 mg PO BID Qty: 14 0RF lidocaine [Lidoderm] 5 % adhesive patch,medicated 1 patch topical DAILY Qty: 15 0RF Rx Instructions: leave on most painful area for up to 12 hrs cyclobenzaprine 10 mg tablet 10 mg PO Q8H Qty: 20 0RF meclizine 25 mg tablet 25 mg PO TID PRN (Reason: dizziness) Qty: 20 0RF diclofenac sodium [Aleve (diclofenac)] 1 % gel 2 g topical BID PRN (Reason: pain (scale score 4-6)) Qty: 100 0RF Rx Instructions: apply to single elbow, wrist or hand; for hand includes palm/fingers/back of hand hydrochlorothiazide 12.5 mg capsule 12.5 mg PO DAILY (DME) blood-glucose meter [FreeStyle Lite Meter] Kit See Rx Instructions .Route Qty: 1 0RF Rx Instructions: As directed test blood sugar two times a day cyanocobalamin (vitamin B-12) 1,000 mcg tablet 1,000 mcg PO QAM oxycodone 5 mg tablet 5 mg PO Q6H PRN (Reason: severe pain) zolpidem 5 mg tablet 5 mg PO BEDTIME PRN (Reason: insomnia) pramipexole 0.5 mg tablet 0.5 mg PO TID varenicline 1 mg tablet 1 mg PO BID ferrous sulfate 325 mg (65 mg iron) tablet 325 mg PO QAM ondansetron HCl 4 mg tablet 4 mg PO Q12H PRN (Reason: nausea/vomiting) Referrals: Dex Quintana MD [Physician] - (Chronic back pain) Jarett Messina MD, PhD [Physician] - (Chronic back pain) Stand Alone Forms: Work/School Release Interventions: ED Discharge Assessment Last Done: 06/03/24 14:40 Discharge Date/Time: 06/03/24 14:41 Print Language: Sinhala
[2024-06-03] MEDS: predniSONE 20 MG TABLET 60 MG PO (13:54)
[2024-06-03] MEDS: Morphine Sulfate 4 MG/ML CARTRIDGE IM (13:55)
[2024-06-03 14:40] VITALS: BP 145/74; PULSE 97; RESP 20; TEMP 36.2; O2SAT 98
== END 2024-06-03 14:41 | disposition home or self-care (01) ==
PROVIDERS: Emergency Provider Emergency Medicine; PCP Student in an Organized Health Care Education/Training Program
DX: M54.16 Radiculopathy, lumbar region (principal); M79.605 Pain in left leg; Z79.899 Other long term (current) drug therapy
CPT/HCPCS: 72100; 96372; 99283; 99284; J2270

== ENCOUNTER 2024-06-05 14:38 | Outpatient (AMB) | payer OTHER, SELFPAY ==
--- NOTE | 2024-06-05 15:20 | A.SPINEOV_ITS ---
Intake Visit Reasons: ED f/u Intake Note: Ms. 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 Required: No Allergies prochlorperazine [From Compazine] Allergy (Severe, Verified 06/05/24 15:30) Seizure Penicillins Allergy (Intermediate, Verified 06/05/24 15:30) HIVES sulfamethoxazole [From BACTRIM] Allergy (Intermediate, Verified 06/05/24 15:30) BLISTERS- DELGADO - NERVE ENDINGS IN HAND/ERYTHEMA MULTIFORM trimethoprim [From BACTRIM] Allergy (Intermediate, Verified 06/05/24 15:30) BLISTERS- DELGADO - NERVE ENDINGS IN HAND/ERYTHEMA MULTIFORM latex [Latex] Allergy (Mild, Verified 06/05/24 15:30) RASH transparent dressing [Tegaderm] Adverse Reaction (Severe, Verified 06/05/24 15:30) Redness of Skin theophylline Adverse Reaction (Intermediate, Verified 06/05/24 15:30) TACHYCARDIA Assessment & Plan Assessment & Plan (1) Low back pain: Code(s): M54.50 - Low back pain, unspecified Category: Medical Qualifiers: Chronicity: chronic Back pain laterality: bilateral Sciatica presence: unspecified whether sciatica present Qualified Code(s): M54.50 - Low back pain, unspecified; G89.29 - Other chronic pain Plan Dear colleague, Thank you for referring Nayely to our office today. She is a pleasant 63-year-old female who comes in today with a chief complaint of low back pain. She reports this has been ongoing for the past 3 years. She feels as though she had an exacerbation of her symptoms last Tuesday after sitting on the floor for an extended period of time. When she attempted to get up from the floor she began feeling shooting pains from her low back up into the middle back. When describing the pain she runs both of her hands just above the waistline of her back. She denies any shooting pains down either lower extremity. She denies any leg numbness/tingling or weakness. She does report some slight tingling in her left anterior thigh, somewhat near the inguinal crease, but states it does not encompass her groin/perineum. She denies any bowel/bladder incontinence. She has been taking oxycodone and muscle relaxers in order to help mitigate the pain. She is closely followed by our colleagues in pain management who have attempted several injections to help mitigate her pain. Most recently she has been scheduled for what she describes as a series of lidocaine injections on 06/12/2024. It appears based on the last office visit written by Dr. Quintana that he has ordered her a pelvic MRI. She also has an active order in for MRI of the abdomen. She has attempted physical therapy earlier this year and found that it was not very helpful for her. She has a pertinent past medical history of previous lumbar decompression completed by Dr. Syed at [facility]. PMH: Chronic pain syndrome, chronic left SI joint pain, SI joint dysfunction, diverticulosis, tendinitis of left hip, right thumb trigger finger, carpal tunnel syndrome right wrist, hidradenitis suppurativa, GERD, asthma, dyslipidemia, multinodular goiter, type 2 diabetes, anastomotic ulcer, history of gastric bypass surgery. Social hx: The patient does not smoke, reports no substance use. Medications: Albuterol, cholecalciferol, vitamin B12, cyclobenzaprine, diclofenac, ferrous sulfate, fluticasone, HCTZ, hydrochlorothiazide, lidocaine patches, meclizine, metformin, metronidazole, ondansetron, oxycodone, pantoprazole, pramipexole, prednisone, sertraline, thiamine, tizanidine, varenicline, zolpidem. Allergies: Physical exam: The patient is in obvious agony and exam. She walks very slowly taking small steps. She has a difficult time recalling history and is very focused on the pain that she is in. She was unable to participate fully in the examination and could not get up onto the examination table. She has about 5/5 strength with bilateral dorsiflexion and plantar flexion. She has about 4/5 strength with bilateral knee flexion & knee extension. She has 3/5 strength with bilateral iliopsoas testing and did not tolerate more than antigravity. Her upper extremity strength is about 4/5, but again was difficult to assess due to lack of patient compliance with the exam. (-) bilateral Archer's. (-) bilateral clonus. (+) bilateral straight leg raise. Imaging review: MRI of the lumbar spine completed here at [facility] shows mild bilateral foraminal stenosis at L3-4, L4-5. There is no evidence of any acute disc herniation or other neurological impingement. Impression: Nayely's history and physical examination are most consistent with some kind of musculoskeletal spasm or flare-up as a result of a prolonged positional change on Tuesday. Her story would be very odd for a disc herniation, however this can not be completely ruled out. She does have a positive straight leg raise, in the type of acute severe pain that she is currently in is consistent with an idiopathic disc herniation. However, I am hesitant to order a lumbar MRI given that she has 2 other forms of MRI imaging already pending by our colleagues in pain management. I encouraged her to continue following up with Dr. Quintana who is actively attempting to treat her pain via injections in 7 days. She should also follow up with him regarding the MRI imaging that he is already ordered. If the injections and MRIs are not fruitful, I would suggest a lumbar MRI to rule out an acute disc herniation. Thank you for allowing us to care for your patient. The total time spent with this visit with this patient was 45 minutes reviewing history, physical exam, MRI imaging review, and implementation of treatment plan or further diagnostic testing Bridger Messina MD,PhD [facility] Coding Level of Care Code New Pt Level 4 (89364) Diagnoses Chronic bilateral low back pain, unspecified whether sciatica present M54.50; G89.29 Chronicity: chronic Back pain laterality: bilateral Sciatica presence: unspecified whether sciatica present
== END 2024-06-05 16:05 | disposition home or self-care (01) ==
PROVIDERS: PCP Student in an Organized Health Care Education/Training Program; Visit Provider Physician Assistant
DX: M54.50 Low back pain, unspecified (principal); G89.29 Other chronic pain
CPT/HCPCS: 99204

== ENCOUNTER → 2024-06-05 14:38 | Outpatient (BNVA) | payer OTHER, SELFPAY | PROVIDERS: PCP Student in an Organized Health Care Education/Training Program; Visit Provider Physician Assistant | DX: M54.50 Low back pain, unspecified (principal); G89.4 Chronic pain syndrome | CPT/HCPCS: 99202 ==

== ENCOUNTER 2024-06-12 06:05 | Outpatient (REF) | payer OTHER, SELFPAY ==
--- NOTE | ~2024-06-12 | FL_ITS ---
EXAMINATION: FLUORO GUIDANCE IN TREATMENT ROOM CLINICAL INFORMATION: Spondylosis without myelopathy or radiculopathy, lumbar region. COMPARISON: None available. TECHNIQUE: Fluoroscopy supervised by: Dr. Dex Quintana. Fluoroscopy time: 0.5 minutes. Cumulative Dose: 4.88 mGy. DAP: 0.0848 mGy-m2 (milligray-meter squared). Images: 8. FINDINGS: [place] are present at 4 consecutive levels on the left and a transforaminal position in the lumbosacral spine. Contrast is injected at each level and appears to be epidural. FL/FL guidance in treatment room IMPRESSION: Fluoroscopy during procedure. Please see procedure report for additional information. Electronically signed by: Leonidas Bailey MD 08/01/2024 04:47 PM TIM
== END 2024-06-12 06:06 | disposition home or self-care (01) ==
LOC: CF 06:05
PROVIDERS: Visit Provider Anesthesiology
DX: M47.816 Spondylosis without myelopathy or radiculopathy, lumbar region (principal)
CPT/HCPCS: 64493; 64494; J2003; J2795; Q9967

== ENCOUNTER 2024-06-12 07:25 | Outpatient (AMB) | payer OTHER, SELFPAY ==
[2024-06-12 07:38] VITALS: BP 100/60; PULSE 79; RESP 15; O2SAT 98
--- NOTE | 2024-06-12 07:38 | A.OFFVIS_ITS ---
Vital Signs 06/12/24 07:38 06/12/24 08:26 BP 100/60 110/66 Blood Pressure Location Lt brachial Lt brachial Position Sitting Sitting Respiration 15 15 Pulse 79 72 Pulse Source Pulse Oximeter Pulse Oximeter Pulse Oximetry (%) 98 Oxygen Delivery Method Room Air Intake Visit Reasons: LEFT DIAGNOSTIC L2, L3, L4, DRL5 MBB Allergies prochlorperazine [From Compazine] Allergy (Severe, Verified 06/12/24 07:38) Seizure Penicillins Allergy (Intermediate, Verified 06/12/24 07:38) HIVES sulfamethoxazole [From BACTRIM] Allergy (Intermediate, Verified 06/12/24 07:38) BLISTERS- [place] - NERVE ENDINGS IN HAND/ERYTHEMA MULTIFORM trimethoprim [From BACTRIM] Allergy (Intermediate, Verified 06/12/24 07:38) BLISTERS- [place] - NERVE ENDINGS IN HAND/ERYTHEMA MULTIFORM latex [Latex] Allergy (Mild, Verified 06/12/24 07:38) RASH transparent dressing [Tegaderm] Adverse Reaction (Severe, Verified 06/12/24 07:38) Redness of Skin theophylline Adverse Reaction (Intermediate, Verified 06/12/24 07:38) TACHYCARDIA Medication List - Last Reconciled 06/12/24 by Lexis Beckett LPN albuterol sulfate 1.25 mg (3 mL) inhalation QID PRN albuterol sulfate 90 mcg/actuation 2 puffs inhalation Q4-6H PRN blood sugar diagnostic (FreeStyle Lite Strips) USE TO TEST BLOOD SUGAR TWICE DAILY blood-glucose meter (FreeStyle Lite Meter kit) As directed test blood sugar two times a day cholecalciferol (vitamin D3) 50 mcg PO DAILY cyanocobalamin (vitamin B-12) 1,000 mcg PO QAM cyclobenzaprine 10 mg PO Q8H diclofenac sodium 1% (Aleve (diclofenac)) 2 grams topical BID PRN ferrous sulfate 325 mg PO QAM fluticasone propionate 50 mcg/actuation (Flonase Allergy Relief) 2 sprays intranasal DAILY hydrochlorothiazide 12.5 mg PO DAILY hydroxyzine HCl 50 mg PO BEDTIME lidocaine 5% (Lidoderm) 1 patch topical DAILY meclizine 25 mg PO TID PRN metformin ER 500 mg PO BID metronidazole 500 mg PO BID ondansetron HCl 4 mg PO Q12H PRN oxycodone 5 mg PO Q6H PRN pantoprazole 40 mg PO Q12H pramipexole 0.5 mg PO TID prednisone 40 mg (2 x 20 mg) PO DAILY 5 days sertraline 1 tab PO BEDTIME thiamine HCl (vitamin B1) 100 mg PO DAILY tizanidine 1 tab PO BEDTIME PRN varenicline 1 mg PO BID zolpidem 5 mg PO BEDTIME PRN PFSH Medical History Abscess Abdominal pain Infection of skin due to methicillin resistant Staphylococcus aureus (MRSA) Numbness of right hand COVID-19 Sebaceous cyst Cubital tunnel syndrome on left Contusion of right ankle Numbness and tingling in left hand Left hand pain Stiffness of left hand joint Emesis Overweight (BMI 25.0-29.9) Borderline diabetes Dyslipidemia Non-toxic multinodular goiter Diabetes type 2, controlled History of restless legs syndrome Anxiety Depression High cholesterol Asthma DVT (deep venous thrombosis) GERD (gastroesophageal reflux disease) Anastomotic ulcer Surgical History Hx of colonoscopy H/O removal of cyst (02/03/23) History of removal of cyst (07/28/22) Hx of cholecystectomy History of surgery History of surgery on left wrist Hx of elbow surgery History of excision of epidermal inclusion cyst (03/23/22) Hx of excision of epidermal inclusion cyst (12/25/21) History of excision of mass (10/26/21) S/P trigger finger release History of tooth extraction Hx of hand surgery Hx of esophagogastroduodenoscopy S/P gastric bypass History of hysterectomy Family History Mother Diabetes mellitus CHF (congestive heart failure) Kidney failure Cervical cancer Brother No problems noted. Brother No problems noted. 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 ? ?Informed consent was explained to the patient. All questions were explained and? answered.? The patient was taken inside the operating room where she was positioned prone on the operating table. Time-out was performed delineating correct site, side, the nature of the procedure, patient's allergy, . All operating room staff was participating in OR time-out procedure. ? ? The lower back was prepped with ChloraPrep and draped with sterile towels.? C- arm was brought over the operating field and sq picture of L3, L4-, L5 vertebra and S1 AREA were delineated on the screen.? Point of interest were delineated as confluence of superior articular process of L3, L4 and L5 vertebra on the left with corresponding transverse processes as well as confluence of the sacral alae on the left with superior articular process of S1.? The projection of the point of interest to the skin were injected with the small amount of local anesthetic lidocaine 2% mixed with ropivacaine 0.5% 1-1 approcimately 1 cc.? After that 22 gauge 3.5 inch spinal needle was driven sequentially to the points of interest in tunnel vision fashion. After needles gently contacted the bone at the point of interests the needle was injected with small amount of the contrast.? The injection of the contrast did not demonstrate any intravascular or intrathecal spread of the contrast.? After that injection of the? ropivacaine 0.5%-1cc was performed at each needle location.??after that the needles were removed and Bandaids were applied. ? Upon completion of the injections? needle was? removed and sterile Band-Aids were applied.? The patient tolerated procedure very well. Orders: Orders FL guidance in treatment room Today M47.816 - Spondylosis without myelopathy or radiculopathy, lumbar region Coding Level of Care Code Procedure Only Diagnoses Spondylosis of lumbar region without myelopathy or radiculopathy M47.816
[2024-06-12 08:26] VITALS: BP 110/66; PULSE 72; RESP 15
== END 2024-06-12 08:30 | disposition home or self-care (01) ==
LOC: HO.PMCPRC 07:25
PROVIDERS: PCP Student in an Organized Health Care Education/Training Program; Visit Provider Anesthesiology
DX: M47.816 Spondylosis without myelopathy or radiculopathy, lumbar region (principal)
CPT/HCPCS: 64493; 64494

== ENCOUNTER 2024-06-18 09:00 | Outpatient (AMB) | payer OTHER, SELFPAY ==
--- NOTE | 2024-06-18 09:10 | A.OFFVIS_ITS ---
Vital Signs 06/18/24 09:11 Height 5 ft 3 in Weight 153 lb BMI 27.1 BP 114/79 Blood Pressure Location Rt brachial Position Sitting Pulse 92 Pulse Source Pulse Oximeter Pulse Oximetry (%) 97 Oxygen Delivery Method Room Air Intake Visit Reasons: LEFT DIAGNOSTIC L2, L3, L4, DRL5 MBB Allergies prochlorperazine [From Compazine] Allergy (Severe, Verified 06/18/24 09:12) Seizure Penicillins Allergy (Intermediate, Verified 06/18/24 09:12) HIVES sulfamethoxazole [From BACTRIM] Allergy (Intermediate, Verified 06/18/24 09:12) BLISTERS- [place] - NERVE ENDINGS IN HAND/ERYTHEMA MULTIFORM trimethoprim [From BACTRIM] Allergy (Intermediate, Verified 06/18/24 09:12) BLISTERS- [place] - NERVE ENDINGS IN HAND/ERYTHEMA MULTIFORM latex [Latex] Allergy (Mild, Verified 06/18/24 09:12) RASH transparent dressing [Tegaderm] Adverse Reaction (Severe, Verified 06/18/24 09:12) Redness of Skin theophylline Adverse Reaction (Intermediate, Verified 06/18/24 09:12) TACHYCARDIA Medication List - Last Reconciled 06/18/24 by Xin Fernandes, MARINE [employer]OR albuterol sulfate 1.25 mg (3 mL) inhalation QID PRN albuterol sulfate 90 mcg/actuation 2 puffs inhalation Q4-6H PRN blood sugar diagnostic (FreeStyle Lite Strips) USE TO TEST BLOOD SUGAR TWICE DAILY blood-glucose meter (FreeStyle Lite Meter kit) As directed test blood sugar two times a day cholecalciferol (vitamin D3) 50 mcg PO DAILY cyanocobalamin (vitamin B-12) 1,000 mcg PO QAM cyclobenzaprine 10 mg PO Q8H diclofenac sodium 1% (Aleve (diclofenac)) 2 grams topical BID PRN ferrous sulfate 325 mg PO QAM fluticasone propionate 50 mcg/actuation (Flonase Allergy Relief) 2 sprays intranasal DAILY hydrochlorothiazide 12.5 mg PO DAILY hydroxyzine HCl 50 mg PO BEDTIME lidocaine 5% (Lidoderm) 1 patch topical DAILY meclizine 25 mg PO TID PRN metformin ER 500 mg PO BID metronidazole 500 mg PO BID ondansetron HCl 4 mg PO Q12H PRN oxycodone 5 mg PO Q6H PRN pantoprazole 40 mg PO Q12H pramipexole 0.5 mg PO TID prednisone 40 mg (2 x 20 mg) PO DAILY 5 days sertraline 1 tab PO BEDTIME thiamine HCl (vitamin B1) 100 mg PO DAILY tizanidine 1 tab PO BEDTIME PRN varenicline 1 mg PO BID zolpidem 5 mg PO BEDTIME PRN HPI Comments Details: Nayely is in my office today complaining on severe intractable pain in the lower back. She received diagnostic left-sided medial branch block L2-L3 L4 does ramus L5 on the left. She reported pain 10/10 before the procedure. She reported immediately after the procedure and 1 hour after the procedure pain 9/10. However after that the pain started to decrease and by the 5 hours after the procedure she felt pain 6/10. This is about 40% pain improvement. The pain stayed at 6/10 for the next 3 days. And then returned to pain 10/10. This patient is suffering from intractable lower back pain. I decided to do a trial of left percutaneous sprint PNS L5 possible L4 stimulation. Patient agreed to go for the procedure. I will schedule it in the injection office. Prior: with continuation of complain on severe lower back upper pelvis pain now bilaterally with reports of frequent bowel movements, she reports that yesterday she had 6 BMs. I sent her today to CMP and CBC there is no major changes. I also send her on recommendations of the insurance company to x-ray of the pelvis, the x-rays not read however I do not see any significant changes which could be consistent with retro pelvic hematoma or abscess. Her while blood count is normal 6.6. Patient requested me to send her for urinalysis today although the UTI with this complains is unlikely a finding. I recommended her to go to primary care physician with frequent BMs and low back pain. She reports now bilateral lower back pain with radiation to the rectum. It is hardly unlikely that now this bilateral pain is a result of unilateral diagnostic sacroiliac joint injection. She also reported that she has history of bariatric surgery in the past I recommended her to go to bariatric surgeries office and report frequent BMs and pain in the lower back and pain in the bilateral groins, as well as pain in the rectum and frequent bowel movements. Prior: very pleasant 63 years old female who presents in my office with complains on lower back pain with radiation into the left lower extremity. She reports that this pain started more than 1 year ago. She denies any inciting events, she reported the pain started 1 day when she woke up from this pain. She reports that she can not sleep normally because of her pain. She can not do activities of daily living with difficulty. She can not take care of herself and she can not function normally. 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 She reports that pain affects her ability to work. She reports that heat applications as well as cold applications make his pain worse. The movements make his pain worse. She had physical therapy in the past with [facility] [place] and reported aggravation of pain and no help. She tried lidocaine patches [id number] and reported no pain improvement. She had an MRI done in [facility] and results of this MRI dictated as below. She was examined by neurosurgeon Dr. Messina and Dr. Messina did not find any reason to perform neurosurgery on this patient. Dr. Wood referred this patient to us to perform left sacroiliac joint injection. Sacroiliac joint injections was performed on 04/24/2024. Unfortunately she did not report pain improvement after the injection. She reported only pain aggravation after the injection. Her past medical history significant for morbid obesity. She had gastric bypass and she has since then lost a lot of weight. She also reported asthma and type 2 diabetes which are now under good control after she completed gastric bypass surgery. Her surgical history significant for upper lumbar lower thoracic la minotomy without any hardware insertion. She has history hysterectomy and mentioned above gastric bypass. She admits smoking cigarettes she admits that she is trying to stop smoking. She smokes 2 cigarettes a day at this time. She drinks no alcohol drinks 1 cup of coffee a day she denies soda she denies recreational drugs. [facility] Medical History Abscess Abdominal pain Infection of skin due to methicillin resistant Staphylococcus aureus (MRSA) Numbness of right hand COVID-19 Sebaceous cyst Cubital tunnel syndrome on left Contusion of right ankle Numbness and tingling in left hand Left hand pain Stiffness of left hand joint Emesis Overweight (BMI 25.0-29.9) Borderline diabetes Dyslipidemia Non-toxic multinodular goiter Diabetes type 2, controlled History of restless legs syndrome Anxiety Depression High cholesterol Asthma DVT (deep venous thrombosis) GERD (gastroesophageal reflux disease) Anastomotic ulcer Surgical History Hx of colonoscopy H/O removal of cyst (02/03/23) History of removal of cyst (07/28/22) Hx of cholecystectomy History of surgery History of surgery on left wrist Hx of elbow surgery History of excision of epidermal inclusion cyst (03/23/22) Hx of excision of epidermal inclusion cyst (12/25/21) History of excision of mass (10/26/21) S/P trigger finger release History of tooth extraction Hx of hand surgery Hx of esophagogastroduodenoscopy S/P gastric bypass History of hysterectomy Family History Mother Diabetes mellitus CHF (congestive heart failure) Kidney failure Cervical cancer Brother No problems noted. Brother No problems noted. 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 Review of Systems Const All systems reviewed & are unremarkable except as noted in HPI and below ENT Reports Normal hearing present Neuro Reports Normal hearing present, Denies Abnormal speech present, Denies confusion and Denies Sensory deficit (Neuro) Psych Denies confusion Physical Exam Vital Signs: Last Vital Signs Pulse 92 06/18/24 09:11 BP 114/79 06/18/24 09:11 Pulse Ox 97 06/18/24 09:11 Oxygen Delivery Method Room Air 06/18/24 09:11 BMI result Body Mass Index 27.1 Const General: no acute distress; No confusion Orientation/consciousness: patient oriented x3 and No confusion Eyes General: appearance normal, both eyes and all related structures Pupils: Equal, round and reactive pupils present EOM: EOMs intact bilaterally Neck Neck: Yes full ROM Chest Chest palpation & inspection: normal inspection of the chest Resp Effort & Inspection: normal respiratory effort, able to speak in complete sentences, normal respiratory pattern, no audible wheezes and no cough Cardio Jugular venous distension: no JVD GI Inspection: Yes normal to inspection Back/Spine/Pelvis Other: Able to stand on bilateral heels and bilateral tiptoes without difficulty however reports pain aggravation. Normal strength of bilateral lower extremities. Reports difficulty sitting for a long period of time. Reports flexing forward and flexing backwards both aggravate her pain however flexing forward aggravate her pain more than flexing backwards. Joshua test is positive on the left. [place] test is positive on the left. Lateral rotation and medial rotation of the hip are positive for pain increase in the projection of sacroiliac joint. SLR is positive on the left. Dorsiflexion of the foot is positive on the left. There is severe tenderness on palpation in projection of mostly L4-5 and S1 vertebra spinal regions as well as paraspinal regions on the left. Loading test is positive bilaterally. Neuro General: patient oriented x3, gait normal and No confusion Cranial nerves: Yes CN's II-XII intact bilaterally, Yes Equal, round and reactive pupils present, Yes Normal hearing present and Yes Ability to bilaterally elevate shoulders present Speech: No Abnormal speech present Gait exam (Neuro): Normal gait present Motor exam (neuro): 5/5 motor strength present throughout Sensory Exam: No Sensory deficit (Neuro) Extrem General: No pedal edema Psych Speech and movement: Normal speech and movement present Affect: normal affect Attitude: cooperative Thought process: Normal thought process present Thought content: Normal thought content present Insight: Good insight present (Psych) Judgement: Good judgement present (Psych) Assessment & Plan Assessment & Plan (1) SI (sacroiliac) joint dysfunction: Code(s): M53.3 - Sacrococcygeal disorders, not elsewhere classified Category: Medical (2) Spondylosis of lumbar region without myelopathy or radiculopathy: Code(s): M47.816 - Spondylosis without myelopathy or radiculopathy, lumbar region Category: Medical (3) Facet arthropathy, lumbar: Code(s): M47.816 - Spondylosis without myelopathy or radiculopathy, lumbar region Category: Medical (4) Disc degeneration, lumbar: Code(s): M51.369 - Other intervertebral disc degeneration, lumbar region without mention of lumbar back pain or lower extremity pain Category: Medical (5) Chronic pain syndrome: Code(s): G89.4 - Chronic pain syndrome Category: Medical (6) Pelvic pain: Code(s): R10.2 - Pelvic and perineal pain Category: Medical (7) Intractable low back pain: Code(s): M54.59 - Other low back pain Category: Medical Plan The patient received left diagnostic sacroiliac joint injection, she reported no help from sacroiliac joint injection. Started to complain on pain on the left 1st radiating to the rectum. Reported frequent BMs. I requested to repeat CT scan from the insurance company, my actual concerns were retroperitoneal hematoma versus retroperitoneal abscess. On the CBC today there is no left shift and there is no elevated white count. Therefore unlikely abscess. There is no shift of the pelvic organs the x-ray which could be evident of hematoma. After that she reported that her pain is bilateral and she reports at least 6 BMs in 24 hours. I sent her for the MRI of the abdomen and pelvis however her insurance company decided not to provide the coverage for this procedure. I also recommended her to go to primary care physician and complain on those pains and frequent BMs as soon as possible. Consult from her bariatric surgery team maybe also helpful for establishing a proper diagnosis of this patient. After that she came for diagnostic medial branch block on the left and possibly medial branch block could point out to a pain generators in the facet joints on the left. We agreed that I will try sprint PNS for this patient as a trial with diagnosis of intractable lower back pain. Coding Level of Care Code Est Pt Level 3 (73037) Diagnoses SI (sacroiliac) joint dysfunction M53.3 Spondylosis of lumbar region without myelopathy or radiculopathy M47.816 Facet arthropathy, lumbar M47.816 Disc degeneration, lumbar M51.369 Chronic pain syndrome G89.4 Pelvic pain R10.2 Intractable low back pain M54.59
[2024-06-18 09:11] VITALS: BP 114/79; PULSE 92; O2SAT 97; BMI 27.1
== END 2024-06-18 09:31 | disposition home or self-care (01) ==
PROVIDERS: PCP Student in an Organized Health Care Education/Training Program; Visit Provider Anesthesiology
DX: M53.3 Sacrococcygeal disorders, not elsewhere classified (principal); M47.816 Spondylosis without myelopathy or radiculopathy, lumbar region; M51.369 Other intervertebral disc degeneration, lumbar region without mention of lumbar back pain or lower extremity pain; G89.4 Chronic pain syndrome; R10.2 Pelvic and perineal pain; M54.59 Other low back pain
CPT/HCPCS: 99213

== ENCOUNTER → 2024-06-18 09:00 | Outpatient (BNVA) | payer OTHER, SELFPAY | PROVIDERS: PCP Student in an Organized Health Care Education/Training Program; Visit Provider Anesthesiology | DX: M47.816 Spondylosis without myelopathy or radiculopathy, lumbar region (principal); M51.360 Other intervertebral disc degeneration, lumbar region with discogenic back pain only; M53.3 Sacrococcygeal disorders, not elsewhere classified; G89.4 Chronic pain syndrome; R10.2 Pelvic and perineal pain | CPT/HCPCS: 99212 ==

== ENCOUNTER 2024-07-09 08:57 | Outpatient (REF) | payer OTHER, SELFPAY ==
[2024-07-09 15:09] LABS: Estimated Average Glucose 140 mg/dL; Hemoglobin A1C 166.1077 umol/L; Hemoglobin A1c % 6.5 % (<6.0); Total Hemoglobin (HGBA1C) 3463.6578 umol/L
[2024-07-09 15:49] LABS: Alanine Aminotransferase 23 U/L (0-31); Albumin Level 3.8 g/dL (3.5-5.0); Anion Gap 11 (12-20); Aspartate Amino Transferase 24 U/L (5-31); Bilirubin Direct 0.2 mg/dL (0.0-0.5); Bilirubin Total 0.4 mg/dL (0.0-1.0); Blood Urea Nitrogen 14 mg/dL (9-16); Calcium 8.8 mg/dL (8.4-10.2); Carbon Dioxide 27 mmol/L (22-29); Chloride 108 mmol/L (96-108); Cholesterol 181 mg/dL (<200); Estimated Glomerular Filt Rate > 60; Glucose Random 142 mg/dL (60-115); HDL Cholesterol 64 mg/dL (>40); LDL Cholesterol Calculated 100 mg/dL (<100); Potassium 3.7 mmol/L (3.3-5.1); Sodium 142 mmol/L (135-145); Total Protein 6.5 g/dL (6.5-8.0); Triglycerides 86 mg/dL (<150)
[2024-07-09 16:19] LABS: Alkaline Phosphatase 79 U/L (39-117)
== END 2024-07-09 08:58 | disposition home or self-care (01) ==
LOC: HO.CHCLDS 08:57
PROVIDERS: Visit Provider Student in an Organized Health Care Education/Training Program
DX: E11.9 Type 2 diabetes mellitus without complications (principal)
CPT/HCPCS: 36415; 80048; 80061; 80076; 83036

== ENCOUNTER 2024-07-18 07:22 | Day surgery (SDC) | payer OTHER, SELFPAY ==
--- NOTE | 2024-07-17 09:03 | HO.ANESPROP2 ---
Documented by User: Daily Aburto NP 07/17/24 09:04 HPI - Anesthesia Eval Consult details Narrative: 63yo F for Upper Endoscopy PMFSH Active Problems Active Problems: All Active Problems Intractable low back pain (Acute) Diarrhea (Acute) Rectal pain (Acute) Pelvic pain (Acute) Chronic pain syndrome (Acute) Disc degeneration, lumbar (Acute) Facet arthropathy, lumbar (Acute) Spondylosis of lumbar region without myelopathy or radiculopathy (Acute) Chronic left SI joint pain (Acute) Dog bite (Acute) Abscess (Acute) SI (sacroiliac) joint dysfunction (Acute) Osteoarthritis of left knee (Acute) Pes anserinus bursitis of left knee (Acute) Tubular adenoma (Acute) Diverticulosis (Acute) Left lateral epicondylitis (Acute) Posterior neck pain (Acute) COVID-19 (Acute) Low back pain (Acute) Tendonitis of left hip flexor (Acute) Osteoarthritis of left hip (Acute) Trigger thumb, right thumb (Acute) Varicose veins of right lower extremity with inflammation (Acute) Abdominal pain (Acute) Nausea and vomiting (Acute) Chronic diarrhea (Acute) Carpal tunnel syndrome of right wrist (Acute) Epidermal inclusion cyst (Acute) Trigger finger, left middle finger (Acute) Trigger finger, left ring finger (Acute) Hidradenitis suppurativa (Acute) Carpal tunnel syndrome of left wrist (Acute) Ganglion cyst of dorsum of left wrist (Acute) GERD (gastroesophageal reflux disease) (Acute) Asthma (Acute) Dyslipidemia (Acute) Non-toxic multinodular goiter (Acute) Diabetes type 2, controlled (Acute) Anastomotic ulcer (Acute) S/P gastric bypass (Acute) Past Medical History Medical History Abscess Abdominal pain Infection of skin due to methicillin resistant Staphylococcus aureus (MRSA) Numbness of right hand COVID-19 Sebaceous cyst Cubital tunnel syndrome on left Contusion of right ankle Numbness and tingling in left hand Left hand pain Stiffness of left hand joint Emesis Overweight (BMI 25.0-29.9) Borderline diabetes Dyslipidemia Non-toxic multinodular goiter Diabetes type 2, controlled History of restless legs syndrome Anxiety Depression High cholesterol Asthma DVT (deep venous thrombosis) GERD (gastroesophageal reflux disease) Anastomotic ulcer Family History Family History Mother Diabetes mellitus CHF (congestive heart failure) Kidney failure Cervical cancer Brother No problems noted. Brother No problems noted. Family history of problems with anesthesia: No Surgical History Surgical History Hx of colonoscopy H/O removal of cyst (02/03/23) History of removal of cyst (07/28/22) Hx of cholecystectomy History of surgery History of surgery on left wrist Hx of elbow surgery History of excision of epidermal inclusion cyst (03/23/22) Hx of excision of epidermal inclusion cyst (12/25/21) History of excision of mass (10/26/21) S/P trigger finger release History of tooth extraction Hx of hand surgery Hx of esophagogastroduodenoscopy S/P gastric bypass History of hysterectomy History of Problems with Anesthesia: No Social History Social History Household Members: Spouse Are you a primary professional healthcare representative to a significant other at home: No Do you presently have visiting nurse or other home services: No Alcohol intake: former Patient Tobacco Use Status: Former Tobacco user Tobacco use type: Cigarette Cigarette Packs Per Day: 0 Cigarettes Per Day: 1 Years Smoked: 30 Smoked in Last 30 Days: No Use of substances other than those prescribed or required for medical reasons: No Have you been hit, kicked, punched, or otherwise hurt by someone within the past year? 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 Meds Allergies Allergy/AdvReac Type Severity Reaction Status Date / Time prochlorperazine Allergy Severe Seizure Verified 07/18/24 07:35 [From Compazine] Penicillins Allergy Intermediate HIVES Verified 07/18/24 07:35 sulfamethoxazole Allergy Intermediate BLISTERS- Verified 07/18/24 07:35 [From BACTRIM] DELGADO - NERVE ENDINGS IN HAND/ERYTHEMA MULTIFORM trimethoprim [From BACTRIM] Allergy Intermediate BLISTERS- Verified 07/18/24 07:35 DELGADO - NERVE ENDINGS IN HAND/ERYTHEMA MULTIFORM latex [Latex] Allergy Mild RASH Verified 07/18/24 07:35 transparent dressing AdvReac Severe Redness of Verified 07/18/24 07:35 [Tegaderm] Skin theophylline AdvReac Intermediate TACHYCARDIA Verified 07/18/24 07:35 Home Medications ?Medication ?Instructions ?Recorded ?Confirmed ?Last Taken ?Type hydrochlorothiazide 12.5 mg capsule 12.5 mg PO DAILY 05/09/20 07/18/24 07/17/24 History hydroxyzine HCl 25 mg tablet 50 mg PO BEDTIME 06/04/20 07/18/24 10/13/22 History sertraline 100 mg tablet 1 tab PO BEDTIME 10/20/21 07/18/24 10/13/22 History tizanidine 4 mg tablet 1 tab PO BEDTIME PRN Pain 10/20/21 07/18/24 10/13/22 History cyanocobalamin (vitamin B-12) 1,000 mcg PO QAM 06/03/22 07/18/24 10/13/22 History 1,000 mcg tablet metformin 500 mg tablet,extended 500 mg PO BID 06/03/22 07/18/24 07/17/24 History release 24 hr albuterol sulfate 90 mcg/actuation 2 puff inhalation Q4-6H PRN 08/25/23 07/18/24 Unknown History aerosol inhaler Shortness Of Breath Or Wheezing oxycodone 5 mg tablet 5 mg PO Q6H PRN severe pain 09/27/23 07/18/24 Unknown History pramipexole 0.5 mg tablet 0.5 mg PO TID 09/27/23 07/18/24 Unknown History zolpidem 5 mg tablet 5 mg PO BEDTIME PRN insomnia 09/27/23 07/18/24 Unknown History ferrous sulfate 325 mg (65 mg 325 mg PO QAM 10/27/23 07/18/24 07/17/24 History iron) tablet ondansetron HCl 4 mg tablet 4 mg PO Q12H PRN nausea/vomiting 02/03/24 07/18/24 Unknown History varenicline 1 mg tablet 1 mg PO BID 04/24/24 07/18/24 Unknown History Exam Pertinent Lab Results Pertinent Lab Results: Laboratory Tests 05/22/24 07/09/24 05:33 08:59 WBC 7.2 Hgb 12.8 Hct 37.8 Plt Count 182 Sodium 142 Potassium 3.7 Chloride 108 Carbon Dioxide 27 BUN 14 Creatinine 0.73 Assessment and Plan Assessment Anesthesia Assessment: Chart Reviewed Final Anesthetic Review Family History of Problems with Anesthesia: No History of Problems with Anesthesia: No Documented by User: Tamiko Pacheco MD 07/18/24 07:58 [facility] Past Medical History Medical History Abscess Abdominal pain Infection of skin due to methicillin resistant Staphylococcus aureus (MRSA) Numbness of right hand COVID-19 Sebaceous cyst Cubital tunnel syndrome on left Contusion of right ankle Numbness and tingling in left hand Left hand pain Stiffness of left hand joint Emesis Overweight (BMI 25.0-29.9) Borderline diabetes Dyslipidemia Non-toxic multinodular goiter Diabetes type 2, controlled History of restless legs syndrome Anxiety Depression High cholesterol Asthma DVT (deep venous thrombosis) GERD (gastroesophageal reflux disease) Anastomotic ulcer Family History Family History Mother Diabetes mellitus CHF (congestive heart failure) Kidney failure Cervical cancer Brother No problems noted. Brother No problems noted. Surgical History Surgical History Hx of colonoscopy H/O removal of cyst (02/03/23) History of removal of cyst (07/28/22) Hx of cholecystectomy History of surgery History of surgery on left wrist Hx of elbow surgery History of excision of epidermal inclusion cyst (03/23/22) Hx of excision of epidermal inclusion cyst (12/25/21) History of excision of mass (10/26/21) S/P trigger finger release History of tooth extraction Hx of hand surgery Hx of esophagogastroduodenoscopy S/P gastric bypass History of hysterectomy Social History Social History Household Members: Spouse Are you a primary professional healthcare representative to a significant other at home: No Do you presently have visiting nurse or other home services: No Alcohol intake: former Patient Tobacco Use Status: Former Tobacco user Tobacco use type: Cigarette Cigarette Packs Per Day: 0 Cigarettes Per Day: 1 Years Smoked: 30 Smoked in Last 30 Days: No Use of substances other than those prescribed or required for medical reasons: No Have you been hit, kicked, punched, or otherwise hurt by someone within the past year? 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 Meds Allergies Allergy/AdvReac Type Severity Reaction Status Date / Time prochlorperazine Allergy Severe Seizure Verified 07/18/24 07:35 [From Compazine] Penicillins Allergy Intermediate HIVES Verified 07/18/24 07:35 sulfamethoxazole Allergy Intermediate BLISTERS- Verified 07/18/24 07:35 [From BACTRIM] DELGADO - NERVE ENDINGS IN HAND/ERYTHEMA MULTIFORM trimethoprim [From BACTRIM] Allergy Intermediate BLISTERS- Verified 07/18/24 07:35 DELGADO - NERVE ENDINGS IN HAND/ERYTHEMA MULTIFORM latex [Latex] Allergy Mild RASH Verified 07/18/24 07:35 transparent dressing AdvReac Severe Redness of Verified 07/18/24 07:35 [Tegaderm] Skin theophylline AdvReac Intermediate TACHYCARDIA Verified 07/18/24 07:35 Home Medications ?Medication ?Instructions ?Recorded ?Confirmed ?Last Taken ?Type hydrochlorothiazide 12.5 mg capsule 12.5 mg PO DAILY 05/09/20 07/18/24 07/17/24 History hydroxyzine HCl 25 mg tablet 50 mg PO BEDTIME 06/04/20 07/18/24 10/13/22 History sertraline 100 mg tablet 1 tab PO BEDTIME 10/20/21 07/18/24 10/13/22 History tizanidine 4 mg tablet 1 tab PO BEDTIME PRN Pain 10/20/21 07/18/24 10/13/22 History cyanocobalamin (vitamin B-12) 1,000 mcg PO QAM 06/03/22 07/18/24 10/13/22 History 1,000 mcg tablet metformin 500 mg tablet,extended 500 mg PO BID 06/03/22 07/18/24 07/17/24 History release 24 hr albuterol sulfate 90 mcg/actuation 2 puff inhalation Q4-6H PRN 08/25/23 07/18/24 Unknown History aerosol inhaler Shortness Of Breath Or Wheezing oxycodone 5 mg tablet 5 mg PO Q6H PRN severe pain 09/27/23 07/18/24 Unknown History pramipexole 0.5 mg tablet 0.5 mg PO TID 09/27/23 07/18/24 Unknown History zolpidem 5 mg tablet 5 mg PO BEDTIME PRN insomnia 09/27/23 07/18/24 Unknown History ferrous sulfate 325 mg (65 mg 325 mg PO QAM 10/27/23 07/18/24 07/17/24 History iron) tablet ondansetron HCl 4 mg tablet 4 mg PO Q12H PRN nausea/vomiting 02/03/24 07/18/24 Unknown History varenicline 1 mg tablet 1 mg PO BID 04/24/24 07/18/24 Unknown History Exam Airway Mallampati Class: I TM Dist: >3cm Neck ROM: Full Loose/Missing/Broken Teeth: Yes, Upper and Lower Heart: RRR Lungs: CTA Assessment and Plan Assessment Anesthesia Assessment: Anesthesia Plan Discussed Final Anesthetic Review NPO: Yes ASA Class: II Final Preanesthetic Review: Meds/Allgs Chart Reviewed, Consent Obtained/Reviewed and Anes Risks/Benef Reviewed Patient Risk: Low Procedure Risk: Intermediate Anesthetic Plan Anesthetic Plan: MAC: Disposition: Standard PACU
[2024-07-18 07:37] VITALS: BP 113/63; PULSE 74; RESP 16; TEMP 36.3; O2SAT 97; BMI 27.3
[2024-07-18 07:39] LABS: Glucose, Whole Blood 141 mg/dL (60-115)
[2024-07-18] MEDS: Lactated Ringers 1,000 ML 80 ML IVCONT (07:49)
--- NOTE | 2024-07-18 07:53 | MHC.SHP ---
Pre-Procedural Eval Section A - 24 Hr Update-Section A only Date of Service: 07/18/24 The patient is an INPATIENT: No The patient has been examined within 24 hours of the surgical procedure. The History & Physical has been completed within 30 days and I have reviewed it.: Yes Section B - Complete if H&P > 30 days Chief Complaint: Morbid (severe) obesity due to excess calories Details of Present Illness: Abdominal pain Relevant Family History (Specify if Yes): No Relevant Social History: None Present Medications: None Medical History: No relevant PMH History of Previous Operations: Relevant previous surgery/procedure and date(s) (Laparoscopic gastric bypass) Allergies: Allergies Allergy/AdvReac Type Severity Reaction Status Date / Time prochlorperazine Allergy Severe Seizure Verified 07/18/24 07:35 [From Compazine] Penicillins Allergy Intermediate HIVES Verified 07/18/24 07:35 sulfamethoxazole Allergy Intermediate BLISTERS- Verified 07/18/24 07:35 [From BACTRIM] DELGADO - NERVE ENDINGS IN HAND/ERYTHEMA MULTIFORM trimethoprim [From BACTRIM] Allergy Intermediate BLISTERS- Verified 07/18/24 07:35 DELGADO - NERVE ENDINGS IN HAND/ERYTHEMA MULTIFORM latex [Latex] Allergy Mild RASH Verified 07/18/24 07:35 transparent dressing AdvReac Severe Redness of Verified 07/18/24 07:35 [Tegaderm] Skin theophylline AdvReac Intermediate TACHYCARDIA Verified 07/18/24 07:35 Review of Systems Sugical H&P ROS: Negative: Constitution, Cardiovascular, Respiratory, Neurological, Psychiatric, Hem-Onc, Allergic/Immunologic, Genitourinary, Musculoskeletal, Integumentary, Endocrine and Eyes/Ears/Nose/Throat and Yes, Specify: Gastrointestinal (epigastric pain) Exam Surgical H&P Exam: Normal: HEENT, Normal: Heart, Normal: Lungs, Normal: Extremities, Normal: Abdomen, Normal: Skin and Normal: Neurological Plan Diagnosis/Plan: Unchanged (EGD to assess etiology of the abdominal pain. Risks of bleeding and perforation were discussed with the patient and she is in agreement with the plan.) I have reviewed the history and physical and performed a pertinent physical examination on my patient. No changes have occurred unless specified. Time Spent With Patient Time: Total time managing care of this patient today ____ minutes.
--- NOTE | 2024-07-18 07:57 | P.BOP_ITS ---
Brief Operative Note Date of Service: 07/18/24 Pre-op diagnosis: Abdominal pain and vomiting Post-op diagnosis: same Procedure: PROCEDURE DATE: ?07/18/2024 PREOPERATIVE DIAGNOSIS: Abdominal pain and vomiting, s/p gastric bypass POSTOPERATIVE DIAGNOSIS: ?Same as above. 1) Normal popst bypass endoscopy PROCEDURE: [id number] with biopsies Surgeon: ?Ronnie Pa M.D.. Ph.D. Customs Collector: ?None ? Anesthesia: IV sedation Estimated blood loss: ?Minimal FINDINGS AND PROCEDURE: ? OPERATIVE INDICATIONS: ?The patient is a 63 year old male known to me who underwent a laparoscopic gastric bypass by me. The patient is not compliant with reglar follow-up at the office. The patient now complains of abdominal pain and vomiting.? Based on this information I recommended an upper endoscopy to surinder luate the patient's symptoms.? Risks and complications of the surgery were discussed with the patient in advance particularly the possibility of perforation or bleeding that may require surgical intervention. The patient understood the risks and was in agreement with the plan. ? PROCEDURE: After informed consent was obtained by the patient, the patient was ?transferred to the Operating Room and was placed in the supine position.? After successful induction of IV sedation, a mouth block was placed and the patient was placed in the left lateral decubitus position. An upper endoscopy was performed next, the oropharynx and esophagus appeared within the normal limits. There was no hiatal hernia.? The z-line was smooth. Two biopsies were obtained from the distal esophagus 2-3 cm proximal to the GE junction and two biopsies from the GE junction. The small pouch was entered, appeared to be of normal size. There was no gastritis and the gastrojejunostomy was patent. A biopsy was obtained from the gastric pouch. No significant bleeding was noted from any of the biopsy sites. There was no anastomotic ulcer.? At that point the scope was advanced into the small intestine (José Manuel limb) all the way to the scope's full length at about 150cm from incisors, which appeared to be normal as well. The José Manuel limb and the pouch were decompressed and the scope was withdrawn from the patient's mouth. The patient was awaken and was transferred in stable condition to the Recovery Room for further care. I was present and performed all steps of the procedure. There were no residents to assist with this case. Ronnie Pa M.D., Ph.D. Surgeon: Donald Pa MD Anesthesia: MAC Was an Customs Collector used for this Procedure?: No Estimated blood loss (mL): 0 IV fluids (mL): 400 Urine output (mL): 0 (No Dawn to record output) Pathology: other (1) gastric pouch x1, 2) GE junction x2, 3) distal esophagus x2) Condition: stable Disposition: PACU
[2024-07-18 08:20] VITALS: BP 96/54; PULSE 75; RESP 12; TEMP 36.1; O2SAT 99
[2024-07-18 08:35] VITALS: BP 110/62; PULSE 67; RESP 16; O2SAT 99
[2024-07-18 08:50] VITALS: BP 101/49; PULSE 81; RESP 16; TEMP 36.6; O2SAT 97
== END 2024-07-18 09:36 | disposition home or self-care (01) ==
PROVIDERS: PCP Student in an Organized Health Care Education/Training Program; Visit Provider Surgery
PROC: 0DJ08ZZ Inspection of Upper Intestinal Tract, Via Natural or Artificial Opening Endoscopic (ICD-10-PCS; CPT 43235; principal; 2024-07-18 08:50)
DX: K91.0 Vomiting following gastrointestinal surgery (principal); R10.9 Unspecified abdominal pain; Z91.199 Patient's noncompliance with other medical treatment and regimen due to unspecified reason; E66.01 Morbid (severe) obesity due to excess calories; Z68.27 Body mass index [BMI] 27.0-27.9, adult; Z98.84 Bariatric surgery status; K21.9 Gastro-esophageal reflux disease without esophagitis; Z87.11 Personal history of peptic ulcer disease; E11.9 Type 2 diabetes mellitus without complications; E78.00 Pure hypercholesterolemia, unspecified; J45.909 Unspecified asthma, uncomplicated; Z79.84 Long term (current) use of oral hypoglycemic drugs; Z79.51 Long term (current) use of inhaled steroids; Z79.899 Other long term (current) drug therapy; Z88.0 Allergy status to penicillin; Z88.2 Allergy status to sulfonamides; Z91.040 Latex allergy status; Z90.49 Acquired absence of other specified parts of digestive tract; Z98.890 Other specified postprocedural states; Z87.891 Personal history of nicotine dependence
CPT/HCPCS: 43239; 82947; 88305; 88313; 88342; J2003; J2704

== ENCOUNTER → 2024-07-18 07:22 | Outpatient (BNV) | payer OTHER, SELFPAY | PROVIDERS: PCP Student in an Organized Health Care Education/Training Program; Visit Provider Surgery | DX: R10.9 Unspecified abdominal pain (principal); R11.10 Vomiting, unspecified; Z98.84 Bariatric surgery status | CPT/HCPCS: 43239 ==

== ENCOUNTER 2024-07-21 23:01 | Emergency (ER) | payer OTHER, SELFPAY ==
--- NOTE | ~2024-07-21 | XR_ITS ---
CLINICAL HISTORY: injury 3 view left hand Comparison: None Findings: Bones intact. No dislocations. No significant loss of joint space or osteophytes. No erosions. No radiopaque foreign body. IMPRESSION: 1. No acute findings This document has been electronically signed by: Lou Zee MD on 07/21/2024 23:57:43
[2024-07-21 23:02] VITALS: BP 107/71; PULSE 70; RESP 16; TEMP 36.2; O2SAT 98; BMI 27.1
--- NOTE | 2024-07-22 01:44 | ED.EXTPRO ---
HPI - Extremity Problem General Chief complaint: Extremity Injury, Upper Stated complaint: left hand injury Time Seen by Provider: 07/22/24 01:45 Source: patient Limitations: no limitations History of Present Illness ED Provider: Nayely Dawn PA-C HPI Narrative: 63-year-old female with a history of chronic pain presents with left finger injury times 1-1/2 weeks ago. Patient states while at work her hand got caught between a door and a metal Adele. Patient complains of ongoing left index finger pain, swelling and bruising. Related Data Home Medications ?Medication ?Instructions ?Recorded ?Confirmed hydrochlorothiazide 12.5 mg capsule 12.5 mg PO DAILY 05/09/20 07/18/24 hydroxyzine HCl 25 mg tablet 50 mg PO BEDTIME 06/04/20 07/18/24 sertraline 100 mg tablet 1 tab PO BEDTIME 10/20/21 07/18/24 tizanidine 4 mg tablet 1 tab PO BEDTIME PRN Pain 10/20/21 07/18/24 cyanocobalamin (vitamin B-12) 1,000 mcg PO QAM 06/03/22 07/18/24 1,000 mcg tablet metformin 500 mg tablet,extended 500 mg PO BID 06/03/22 07/18/24 release 24 hr albuterol sulfate 90 mcg/actuation 2 puff inhalation Q4-6H PRN 08/25/23 07/18/24 aerosol inhaler Shortness Of Breath Or Wheezing oxycodone 5 mg tablet 5 mg PO Q6H PRN severe pain 09/27/23 07/18/24 pramipexole 0.5 mg tablet 0.5 mg PO TID 09/27/23 07/18/24 zolpidem 5 mg tablet 5 mg PO BEDTIME PRN insomnia 09/27/23 07/18/24 ferrous sulfate 325 mg (65 mg 325 mg PO QAM 10/27/23 07/18/24 iron) tablet ondansetron HCl 4 mg tablet 4 mg PO Q12H PRN nausea/vomiting 02/03/24 07/18/24 varenicline 1 mg tablet 1 mg PO BID 04/24/24 07/18/24 Previous Rx's ?Medication ?Instructions ?Recorded cholecalciferol (vitamin D3) 50 50 mcg PO DAILY #30 caps 12/15/20 mcg (2,000 unit) capsule fluticasone propionate 50 2 spray intranasal DAILY #16 grams 06/21/21 mcg/actuation nasal spray,suspension (Flonase Allergy Relief) blood-glucose meter (FreeStyle #1 ea 08/21/21 Lite Meter kit) blood sugar diagnostic (FreeStyle #150 strips 03/30/22 Lite Strips) thiamine HCl (vitamin B1) 100 mg 100 mg PO DAILY #90 tabs 06/07/22 tablet lidocaine 5 % topical patch 1 patch topical DAILY #15 ea 11/10/22 (Lidoderm) cyclobenzaprine 10 mg tablet 10 mg PO Q8H #20 tabs 01/07/23 meclizine 25 mg tablet 25 mg PO TID PRN dizziness #20 tabs 02/11/23 albuterol sulfate 1.25 mg/3 mL 1.25 mg (3 mL) inhalation QID PRN 06/11/23 solution for nebulization shortness of breath or wheezing #90 mL diclofenac sodium 1 % topical gel 2 g topical BID PRN pain (scale 07/18/23 (Aleve (diclofenac)) score 4-6) #100 grams prednisone 20 mg tablet 40 mg (2 x 20 mg) PO DAILY 5 days 06/03/24 #10 tabs pantoprazole 40 mg tablet,delayed 40 mg PO Q12H #60 tabs 07/19/24 release Allergies Allergy/AdvReac Type Severity Reaction Status Date / Time prochlorperazine Allergy Severe Seizure Verified 07/21/24 23:06 [From Compazine] Penicillins Allergy Intermediate HIVES Verified 07/21/24 23:06 sulfamethoxazole Allergy Intermediate BLISTERS- Verified 07/21/24 23:06 [From BACTRIM] DELGADO - NERVE ENDINGS IN HAND/ERYTHEMA MULTIFORM trimethoprim [From BACTRIM] Allergy Intermediate BLISTERS- Verified 07/21/24 23:06 DELGADO - NERVE ENDINGS IN HAND/ERYTHEMA MULTIFORM latex [Latex] Allergy Mild RASH Verified 07/21/24 23:06 transparent dressing AdvReac Severe Redness of Verified 07/21/24 23:06 [Tegaderm] Skin theophylline AdvReac Intermediate TACHYCARDIA Verified 07/21/24 23:06 Review of Systems Review of Systems: Yes all other systems are reviewed and are negative Constitutional: Constitutional: Denies fever(s) Musculoskeletal: Musculoskeletal: Reports arthralgias and Reports joint swelling Neurologic: Denies paresthesias [facility] Past Medical History Attestation statement: The following information was validated with the patient. Medical History Abscess Abdominal pain Infection of skin due to methicillin resistant Staphylococcus aureus (MRSA) Numbness of right hand COVID-19 Sebaceous cyst Cubital tunnel syndrome on left Contusion of right ankle Numbness and tingling in left hand Left hand pain Stiffness of left hand joint Emesis Overweight (BMI 25.0-29.9) Borderline diabetes Dyslipidemia Non-toxic multinodular goiter Diabetes type 2, controlled History of restless legs syndrome Anxiety Depression High cholesterol Asthma DVT (deep venous thrombosis) GERD (gastroesophageal reflux disease) Anastomotic ulcer Surgical History Hx of colonoscopy H/O removal of cyst (02/03/23) History of removal of cyst (07/28/22) Hx of cholecystectomy History of surgery History of surgery on left wrist Hx of elbow surgery History of excision of epidermal inclusion cyst (03/23/22) Hx of excision of epidermal inclusion cyst (12/25/21) History of excision of mass (10/26/21) S/P trigger finger release History of tooth extraction Hx of hand surgery Hx of esophagogastroduodenoscopy S/P gastric bypass History of hysterectomy Family History Family History Mother Diabetes mellitus CHF (congestive heart failure) Kidney failure Cervical cancer Brother No problems noted. Brother No problems noted. 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 Physical Exam Vital Signs: Vital Signs: Last Vital Signs Temp 97.2 F 07/21/24 23:02 Pulse 70 07/21/24 23:02 Resp 16 07/21/24 23:02 BP 107/71 07/21/24 23:02 Pulse Ox 98 07/21/24 23:02 O2 Del Method Room Air 07/21/24 23:02 BMI result Body Mass Index 27.1 Const: Other: Alert Orientation/consciousness: patient oriented x3 Resp: Effort & Inspection: normal respiratory effort Cardio: Other: Normal peripheral perfusion Skin: Other: Warm dry no rash Neuro: General: patient oriented x3, no focal motor deficits and CN's II-XI intact bilaterally Extrem: Other: Ecchymosis and swelling noted over the left index finger, she is able to flex and extend at MCP DIP PIP, Psych: Other: Calm cooperative Medical Decision Making Medical Decision Making MDM Narrative: 63-year-old female with a history of chronic pain presents with left finger injury times 1-1/2 weeks ago. Patient states while at work her hand got caught between a door and a metal Adele. Patient complains of ongoing left index finger pain, swelling and bruising. No relevant chronic issues History: Per patient I have considered the following differential diagnoses: Fracture, dislocation, contusion, sprain Plan: X-ray was obtained from triage there was no fracture or dislocation, she has a sprain, I put her in a finger splint. I have independently reviewed the following tests: X-ray left hand:Findings: Bones intact. No dislocations. No significant loss of joint space or osteophytes. No erosions. No radiopaque foreign body. IMPRESSION: 1. No acute findings This document has been electronically signed by: Lou Zee MD on 07/21/2024 23:57:43 Discharge Plan Discharge Clinical Impression: Other sprain of left index finger, initial encounter Patient Disposition: Home, Self-Care Instructions: Finger Sprain (ED), R.I.C.E. Treatment (ED) Additional Instructions: The x-ray was normal of the finger, there was no fracture no dislocation. You sustained a sprain. Keep the splint in place, see additional home care instructions. Follow up with your primary care provider as needed. Prescriptions: No Action cholecalciferol (vitamin D3) 50 mcg (2,000 unit) capsule 50 mcg PO DAILY Qty: 30 11RF (DME) FreeStyle Lite Strips Strip See Rx Instructions .ROUTE .COMPLEX Qty: 150 6RF Dose Instruction: USE TO TEST BLOOD SUGAR TWICE DAILY Rx Instructions: USE TO TEST BLOOD SUGAR TWICE DAILY thiamine HCl (vitamin B1) 100 mg tablet 100 mg PO DAILY Qty: 90 3RF pantoprazole 40 mg tablet,delayed release (DR/EC) 40 mg PO Q12H Qty: 60 6RF hydroxyzine HCl 25 mg tablet 50 mg PO BEDTIME sertraline 100 mg tablet 1 tab PO BEDTIME tizanidine 4 mg tablet 1 tab PO BEDTIME PRN (Reason: Pain) fluticasone propionate [Flonase Allergy Relief] 50 mcg/actuation spray,suspension 2 spray intranasal DAILY Qty: 16 0RF Rx Instructions: administer into each nostril metformin 500 mg tablet extended release 24 hr 500 mg PO BID albuterol sulfate 1.25 mg/3 mL solution for nebulization 1.25 mg inhalation QID PRN (Reason: shortness of breath or wheezing) Qty: 90 0RF albuterol sulfate 90 mcg/actuation Hfa Aerosol Inhaler 2 puff INHALATION Q4-6H PRN (Reason: Shortness Of Breath Or Wheezing) lidocaine [Lidoderm] 5 % adhesive patch,medicated 1 patch topical DAILY Qty: 15 0RF Rx Instructions: leave on most painful area for up to 12 hrs cyclobenzaprine 10 mg tablet 10 mg PO Q8H Qty: 20 0RF meclizine 25 mg tablet 25 mg PO TID PRN (Reason: dizziness) Qty: 20 0RF diclofenac sodium [Aleve (diclofenac)] 1 % gel 2 g topical BID PRN (Reason: pain (scale score 4-6)) Qty: 100 0RF Rx Instructions: apply to single elbow, wrist or hand; for hand includes palm/fingers/back of hand prednisone 20 mg tablet 40 mg PO DAILY 5 Days Qty: 10 0RF hydrochlorothiazide 12.5 mg capsule 12.5 mg PO DAILY (DME) blood-glucose meter [FreeStyle Lite Meter] Kit See Rx Instructions .Route Qty: 1 0RF Rx Instructions: As directed test blood sugar two times a day cyanocobalamin (vitamin B-12) 1,000 mcg tablet 1,000 mcg PO QAM oxycodone 5 mg tablet 5 mg PO Q6H PRN (Reason: severe pain) zolpidem 5 mg tablet 5 mg PO BEDTIME PRN (Reason: insomnia) pramipexole 0.5 mg tablet 0.5 mg PO TID varenicline 1 mg tablet 1 mg PO BID ferrous sulfate 325 mg (65 mg iron) tablet 325 mg PO QAM ondansetron HCl 4 mg tablet 4 mg PO Q12H PRN (Reason: nausea/vomiting) Print Language: Tamazight
[2024-07-22 03:34] VITALS: BP 108/69; PULSE 68; RESP 18; TEMP 36.6; O2SAT 97
[2024-07-22 03:35] VITALS: BP 108/69; PULSE 68; RESP 18; TEMP 36.6; O2SAT 97
== END 2024-07-22 03:35 | disposition home or self-care (01) ==
PROVIDERS: Emergency Provider Emergency Medicine; PCP Student in an Organized Health Care Education/Training Program
DX: S63.611A Unspecified sprain of left index finger, initial encounter (principal); M79.645 Pain in left finger(s); Y29.XXXA Contact with blunt object, undetermined intent, initial encounter; Y93.89 Activity, other specified; Y92.89 Other specified places as the place of occurrence of the external cause; Y99.0 Civilian activity done for income or pay; Z79.899 Other long term (current) drug therapy; Z87.891 Personal history of nicotine dependence
CPT/HCPCS: 73130; 99283

== ENCOUNTER → 2024-07-21 23:33 | Outpatient (BNV) | payer OTHER, SELFPAY | PROVIDERS: PCP Student in an Organized Health Care Education/Training Program; Visit Provider Specialist | DX: S69.92XA Unspecified injury of left wrist, hand and finger(s), initial encounter (principal) | CPT/HCPCS: 73130 ==

== ENCOUNTER 2024-07-25 12:44 | Outpatient (AMB) | payer OTHER, SELFPAY ==
--- NOTE | 2024-07-25 13:08 | MHC.OFFVISWM ---
VS Expanded 07/25/24 13:14 Height 5 ft 3 in Weight 152 lb BMI 26.9 Intake Visit Reasons: TELEPHONE GBP 01/25/2019 Allergies prochlorperazine [From Compazine] Allergy (Severe, Verified 07/21/24 23:06) Seizure Penicillins Allergy (Intermediate, Verified 07/21/24 23:06) HIVES sulfamethoxazole [From BACTRIM] Allergy (Intermediate, Verified 07/21/24 23:06) BLISTERS- DELGADO - NERVE ENDINGS IN HAND/ERYTHEMA MULTIFORM trimethoprim [From BACTRIM] Allergy (Intermediate, Verified 07/21/24 23:06) BLISTERS- DELGADO - NERVE ENDINGS IN HAND/ERYTHEMA MULTIFORM latex [Latex] Allergy (Mild, Verified 07/21/24 23:06) RASH transparent dressing [Tegaderm] Adverse Reaction (Severe, Verified 07/21/24 23:06) Redness of Skin theophylline Adverse Reaction (Intermediate, Verified 07/21/24 23:06) TACHYCARDIA Medication List - Last Reconciled 07/25/24 by SIMONE Montalvo albuterol sulfate 1.25 mg (3 mL) inhalation QID PRN albuterol sulfate 90 mcg/actuation 2 puffs inhalation Q4-6H PRN blood sugar diagnostic (FreeStyle Lite Strips) USE TO TEST BLOOD SUGAR TWICE DAILY blood-glucose meter (FreeStyle Lite Meter kit) As directed test blood sugar two times a day cholecalciferol (vitamin D3) 50 mcg PO DAILY cyanocobalamin (vitamin B-12) 1,000 mcg PO QAM cyclobenzaprine 10 mg PO Q8H diclofenac sodium 1% (Aleve (diclofenac)) 2 grams topical BID PRN ferrous sulfate 325 mg PO QAM fluticasone propionate 50 mcg/actuation (Flonase Allergy Relief) 2 sprays intranasal DAILY hydrochlorothiazide 12.5 mg PO DAILY hydroxyzine HCl 50 mg PO BEDTIME lidocaine 5% (Lidoderm) 1 patch topical DAILY meclizine 25 mg PO TID PRN metformin ER 500 mg PO BID ondansetron HCl 4 mg PO Q12H PRN oxycodone 5 mg PO Q6H PRN pantoprazole 40 mg PO Q12H pramipexole 0.5 mg PO TID prednisone 40 mg (2 x 20 mg) PO DAILY 5 days sertraline 1 tab PO BEDTIME thiamine HCl (vitamin B1) 100 mg PO DAILY tizanidine 1 tab PO BEDTIME PRN varenicline 1 mg PO BID zolpidem 5 mg PO BEDTIME PRN HPI Comments Details: This?is a?63?yo female who is s/p RYGB 01/25/2019. Recently had another endoscopy for ongoing complaints of abdominal pain and vomiting. Endoscopy was essentially normal, no stricture, no ulcer. Pt does report she quit smoking, using nicotine patch. On PPI BID. Reports some weight loss, was 159lbs recently, now 152lbs. Present meal plan includes: taking smoothies and sipping slowly, adding protein powder PFSH Medical History Abscess Abdominal pain Infection of skin due to methicillin resistant Staphylococcus aureus (MRSA) Numbness of right hand COVID-19 Sebaceous cyst Cubital tunnel syndrome on left Contusion of right ankle Numbness and tingling in left hand Left hand pain Stiffness of left hand joint Emesis Overweight (BMI 25.0-29.9) Borderline diabetes Dyslipidemia Non-toxic multinodular goiter Diabetes type 2, controlled History of restless legs syndrome Anxiety Depression High cholesterol Asthma DVT (deep venous thrombosis) GERD (gastroesophageal reflux disease) Anastomotic ulcer Surgical History Hx of colonoscopy H/O removal of cyst (02/03/23) History of removal of cyst (07/28/22) Hx of cholecystectomy History of surgery History of surgery on left wrist Hx of elbow surgery History of excision of epidermal inclusion cyst (03/23/22) Hx of excision of epidermal inclusion cyst (12/25/21) History of excision of mass (10/26/21) S/P trigger finger release History of tooth extraction Hx of hand surgery Hx of esophagogastroduodenoscopy S/P gastric bypass History of hysterectomy Family History Mother Diabetes mellitus CHF (congestive heart failure) Kidney failure Cervical cancer Brother No problems noted. Brother No problems noted. 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 Telehealth Telehealth Telehealth Platform: Telephone Location of provider rendering services: other Location of patient: address on file Patient Identification confirmed using: Name, : Yes Telehealth method: voice only Patient verbally consented to treatment: Yes Patient verbally consented to billing insurance company: Yes Patient informed of any privacy concerns related to visit: Yes Minutes spent on Phone/Video with Pt.: 14 Assessment & Plan Assessment & Plan (1) S/P gastric bypass: Comment: 01/2019 Code(s): Z98.84 - Bariatric surgery status Category: Medical Plan Will order CT abd/pelvis with IV/PO contrast to evaluate abdominal pain. Pt claims she is sipping very slowly on beverages, has stopped smoking, is being very careful with eating small portions. I encouraged her to make sure she gets enough protein and primarily use protein drinks for now, sip slowly with 8oz taking 2 hours or 1oz q15min. F/U after CT complete. I spent a total of 30 minutes reviewing/updating records, examining the patient and counseling the patient on weight management as detailed above.
[2024-07-25 13:14] VITALS: BMI 26.9
== END 2024-07-25 13:23 | disposition home or self-care (01) ==
PROVIDERS: PCP Student in an Organized Health Care Education/Training Program; Visit Provider Physician Assistant Surgical
DX: R10.9 Unspecified abdominal pain (principal); R11.10 Vomiting, unspecified; Z98.84 Bariatric surgery status
CPT/HCPCS: 98012

== ENCOUNTER 2024-08-01 09:01 | Outpatient (REF) | payer OTHER, SELFPAY ==
--- NOTE | ~2024-08-01 | XR_ITS ---
EXAMINATION: XR HAND 3 OR MORE VIEWS LEFT HISTORY: M79.642 - Pain in left hand COMPARISON: Comparison is made with the prior examination dated 07/21/2024. FINDINGS: Three views of the left hand are submitted. Osseous mineralization is normal. There is no fracture or dislocation. The joint spaces are preserved. The soft tissues are unremarkable. XR/XR hand LT min 3V IMPRESSION: Unremarkable examination of the left hand. Electronically signed by: Delfino Barone MD 08/01/2024 03:42 PM EST
--- OUTSIDE RECORDS SUMMARY | 2024-08-01 10:18 | XMS_ITS | Encounter Summary ---
Author Organization [employer] Address [address] [place] [address] Care Team Providers Care Computer Programmer Chief Name Role Phone Joyce Tapia MD Primary Care Provider [phone] Reason for Visit * Reason Onset Date Comments Med Refill 04/18/2024 Encounter Details Date Type Department Care Team (Late st Contact Info) Description 04/18/2024 Refill [facility] [address] [place], [place] [phone] Amber Palacio MD [address] [place], [place] [phone] Smoker Social History Tobacco Use Types Packs/Day Years Used Date Smoking Tobacco: Every Day Cigarettes Passive Smoke Exposure: Never Smokeless Tobacco: Never Alcohol Use Standard Drinks/Week Comments Never 0 (1 standard drink = 0.6 oz pur e alcohol) Housing Stability Answer Date Recorded What is your housing situation today? I have yadira han 01/04/[address] you li ve. Do you have problems with any of the following? None of the above 01/04/2024 Food Insecurity Answer Date Recorded Within the past 12 months, y ou worried that your food would run out before you got money to buy more: Never True 01/04/2024 Within the past 12 months,th e food you bought just didn't last and you didn't have enough money to get more: Never True 09/2023 Transportation Answer Date Recorded In the past 12 months, has l ack of transportation kept you from medical appts, meetings, work or from getting things needed for daily living? No 01/04/2024 Utilities Answer Date Recorded In the past 12 months, has t he electric, gas, oil or water company threatened to shut off services in your home? No 01/04/2024 Internet Access Answer Date Recorded Internet Access Q1 Yes 03/02/2024 Internet Access Q2 Not on file 03/02/2024 Comments Unknown Sex and Gender Information Value Date Recorded Sex Assigned at Female 05/03/2022 10:18 AM EDT Legal Sex Female 10:18 AM EDT Gender Identity Female 05/03/2022 10:18 AM EDT Sexual Orientation Straight 05/03/2022 10 :18 AM EDT documented as of this encounter Plan of Treatment Upcoming Encounters Date Type Department Care Team (Late st Contact Info) Description 08/09/2024 10:30 AM EST Clinical Support [facility] MED & PEDS [address] [place] [address] Katherine Casper RN [address] [place] [address] 09/06/2024 8:30 AM EST Office Visit [facility] [address] [place] [address] Joyce Tapia MD [address] [place] [address] documented as of this encounter Visit Diagnoses Diagnosis Smoker Tobacco use disorder documented in this encounter Care Teams Computer Programmer Chief Relationship Specialty Start Date End Date Joyce Tapia MD [address] [place] [id number] PCP - General Family Medicine 06/19/12 documented as of this encounter
--- OUTSIDE RECORDS SUMMARY | 2024-08-01 10:18 | XMS_ITS | Encounter Summary ---
Author Organization [employer] Address [address] [facility] [address] [place] [address] Care Team Providers Care Dinkey Operator Slate Name Role Phone Joyce Tapia MD Primary Care Provider [phone] Reason for Visit * Reason Comments Transition Of Care (Tcm) Encounter Details Date Type Department Care Team ([facility] st Contact Info) Description 07/24/2024 Patient Outreach [facility] [address] [place], [place] [phone] Joyce Tapia MD [address] [place], [place] [phone] Transition Of Care (Tcm) Social History Tobacco Use Types Packs/Day Years [...] t he electric, gas, oil or water [employer] threatened to shut off services in your home? No 01/04/2024 Internet Access Answer Date Recorded Internet Access Q1 Yes 03/02/2024 Internet Access Q2 Not on file 03/02/2024 Comments No Sex and Gender Information Value Date Recorded Sex Assigned at Female 05/03/2022 10:18 AM EDT Legal Sex Female 10:18 AM EDT Gender Identity Female 05/03/2022 10:18 AM EDT Sexual Orientation Straight 05/03/2022 10 :18 AM EDT documented as of this encounter Progress Notes * Janie Whitfield RN - 07/24/2024 8:46 AM EST 07/24/24 [id number] Hospital Discharges and Admission for [facility] Type of Visit Emergency Department Date of Admission/Visit 07/22/24 Date of Discharge 07/22/24 Facility [facility] Diagnosis left hand injury Disposition Discharged Home * Christina Bradley RN - 07/24/2024 8:46 AM EST TC to patient. She states her finger is ok. Not too bad. All questions and concerns have been addressed. documented in this encounter Plan of Treatment Upcoming Encounters Date Type Department Care Team (Late st Contact Info) Description 08/09/2024 10:30 AM EST Clinical Support [facility] [address] [place] [address] Katherine Casper, MAKEDA [address] [place] [address] 09/06/2024 8:30 AM EST Office Visit [facility] [address] [place] [address] Joyce Tapia MD [address] [place] [address] documented as of this encounter Visit Diagnoses Not on filedocumented in this encounter Care Teams Dinkey Operator Slate Relationship Specialty Start Date End Date Joyce Tapia MD [address] [place] [address] PCP - General Family Medicine 06/19/12 documented as of this encounter
--- OUTSIDE RECORDS SUMMARY | 2024-08-01 10:18 | XMS_ITS | Encounter Summary ---
Author Organization [employer] Address [address] 7t [place] [address] Care Team Providers Care Hand Mica Plate Layer Name Role Phone Joyce Tapia MD Primary Care Provider [phone] Encounter Details Date Type Department Care Team (Latest Contact Info) Description 07/09/2024 8:30 AM EST Office Visit [facility] MED & PEDS [address] [place], [place] [phone] Joyce Tapia MD [address] [place], [place] [phone] Gastroesophageal reflux disease without esophagitis (Primary Dx); Type 2 diabetes mellitus without complication, without long-term current use of insulin ([facility]); Rectal bleeding Social History Tobacco Use Types Packs/Day Years Used Date Smoking Tobacco: Every Day Cigarettes Passive Smoke Exposure: Never Smokeless Tobacco: Never Tobacco Cessation:Ready to Q uit: Not Asked; Counseling Given: Not Answered Alcohol Use Standard Drinks/Week Comments Never 0 [...] AM EDT documented as of this encounter Last Filed Vital Signs Vital Sign Reading Time Taken Comments Blood Pressure 118/69 07/09/2024 8:39 AM EST Pulse 68 07/09/2024 8:39 AM EST Temperature 36.1 ??C (97 ??F) 07/09/2024 8:39 AM EST Respiratory Rate 18 07/09/2024 8:39 AM EST Oxygen Saturation - - Inhaled Oxygen Concentration - - Weight 69.9 kg (154 lb) 07/09/2024 8:39 AM EST Height 160 cm (5' 3 ) 07/09/2024 8:39 AM EST Body Mass Index 27.28 07/09/2024 8:39 AM EST documented in this encounter Progress Notes * Joyce Tapia MD - 07/09/2024 8:30 AM EST Subjective Patient ID: Nayely Grover is a 63 y.o. female who presents for No chief complaint on file.. GERD She complains of abdominal pain, belching and heartburn. She reports no choking, no coughing, no dysphagia, no sore throat, no stridor, no tooth decay, no water brash or no wheezing. This is a recurrent problem. The current episode started 1 to 4 weeks ago. The problem occurs constantly. The problem has been gradually worsening. She has tried a PPI for the symptoms. The treatment provided moderate relief. Review of Systems Constitutional: Negative. HENT: Negative for sore throat. Respiratory: Negative. Negative for cough, choking, shortness of breath and wheezing. Cardiovascular: Negative for palpitations. Gastrointestinal: Positive for abdominal pain and heartburn. Negative for dysphagia. Genitourinary: Negative. Objective Physical Exam Constitutional: Appearance: Normal appearance. Cardiovascular: Rate and Rhythm: Normal rate and regular rhythm. Pulses: Normal pulses. Dorsalis pedis pulses are 2+ on the right side and 2+ on the left side. Posterior tibial pulses are 2+ on the right side and 2+ on the left side. Heart sounds: Normal heart sounds. Pulmonary: Effort: Pulmonary effort is normal. Abdominal: General: Abdomen is flat. Musculoskeletal: Right foot: Normal range of motion. No deformity, bunion, Charcot foot or prominent metatarsal heads. Left foot: Normal range of motion. No deformity, bunion, Charcot foot or prominent metatarsal heads. Feet: Right foot: Protective Sensation: 7 sites tested. 7 sites sensed. Skin integrity: Skin integrity normal. No ulcer, blister, skin breakdown, erythema, warmth, callus or dry skin. Toenail Condition: Right toenails are normal. Left foot: Protective Sensation: 7 sites tested. 7 sites sensed. Skin integrity: Skin integrity normal. No ulcer, blister, skin breakdown, erythema, warmth, callus or dry skin. Toenail Condition: Left toenails are normal. Neurological: Mental Status: She is alert. Assessment/Plan Diagnoses and all orders for this visit: Gastroesophageal reflux disease without esophagitis Comments: Started on Nexium and Sucralfate Avoid provocative foods: citrus, alcohol, coffee, chocolate, mints. Eat smaller meals, no eating three hours prior to bedtime. Type 2 diabetes mellitus without complication, without long-term current use of insulin ([facility]) Comments: Stable Advised Low sugar and Low carb diet. Counseled regarding self-monitoring of blood glucose. Orders: - POCT Glucose Rectal bleeding Comments: Intermitent She has follow up with GI,However advised to go to ER if symptoms get worse Other orders - esomeprazole (NexIUM) [address] capsule; Take 1 capsule (20 mg) by mouth before breakfast. Do not open capsule. - sucralfate (Carafate) 1 g tablet; Take 1 tablet (1 g) by mouth before breakfast, before lunch, before evening meal, and at bedtime. documented in this encounter Plan of Treatment Upcoming Encounters Date Type Department Care Team (Late st Contact Info) Description 08/09/2024 10:30 AM EST Clinical Support [facility]EDS [address] [place] [address] Katehrine Casper RN [address] [place] [address] 09/06/2024 8:30 AM EST Office Visit [facility] [address] [place] [address] Joyce Tapia MD [address] [place] [address] documented as of this encounter Procedures Procedure Name Priority Date/Time Associated Diagnosis Comments HEMOGLOBIN A1C Routine 07/09/2024 8:59 AM EST Type 2 diabetes mellitus without complication, without long-term current use of insulin (CMS/HCC) HEPATIC FUNCTION PANEL Routine 07/09/2024 8:59 AM EST Type 2 diabetes mellitus without complication, without long-term current use of insulin (CMS/HCC) LIPID PANEL, STANDARD Routine 07/09/2024 8:59 AM EST Type 2 diabetes mellitus without complication, without long-term current use of insulin (CMS/HCC) BASIC METABOLIC PANEL Routine 07/09/2024 8:59 AM EST Type 2 diabetes mellitus without complication, without long-term current use of insulin (CMS/HCC) POCT GLUCOSE Routine 07/09/2024 8:41 AM EST Type 2 diabetes mellitus without complication, without long-term current use of insulin (CMS/HCC) documented in this encounter Results * (ABNORMAL) Hemoglobin A1c (07/09/2024 8:59 AM EST) Hemoglobin A1c 6.5(H) <6.0 % [facility] Comment:Hemoglobin A1C Refer ence Range Adults: 4.8 - 6.0 % Non diabetic: < 6.0 % Goal: < 7.0 %Additional Action Suggested: > 8.0 %Note: Hemoglobin A1c results are invalid for patients with abnormal amounts of HbF. Blood transfusions may impact the HbA1c concentration in the patient sample. Estimated Average Glucose 140 mg/dL [facility] Comment:eAG = Estimated ave rage glucose which is %A1C expressed asaverage glucose, using the formula of the N4M-[id number] Glucose study (ADAG), Diabetes Care, Vol.31,#8,2007 Blood Venous blood specimen / Unknown 07/09/2024 8:59 AM EST 07/09/2024 2:20 PM EST Joyce Tapia MD LAB BLOOD ORDERABLES Final Resul t Performing Organization Address [facility] Co de Phone Number [facility] [address] [place] [phone] * Hepatic Function Panel (07/09/2024 8:59 AM EST) Bilirubin, Total 0.4 0.0 - 1.0 mg/dL [facility] Bilirubin, Direct 0.2 0.0 - 0.5 mg/dL [facility] Aspartate Amino Transferase 24 5 - 31 U/L [facility] Alanine Aminotransferase 23 0 - 31 U/L [facility] Total Protein 6.5 6.5 - 8.0 g/dL [facility] Albumin Level 3.8 3.5 - 5.0 g/dL [facility] Alkaline Phosphatase 79 39 - 117 U/L [facility] Blood Venous blood specimen / Unknown 07/09/2024 8:59 AM EST 07/09/2024 2:20 PM EST Joyce Tapia MD LAB BLOOD ORDERABLES Final Resul t Performing Organization Address [facility] Co de Phone Number [facility] [address] [place] [phone] * (ABNORMAL) Lipid Panel, Standard (07/09/2024 8:59 AM EST) Triglycerides 86 <150 mg/dL [facility] Comment:Desirable Triglyceri de: less than 150 mg/dLBorderline High Triglyceride 150-199 mg/dLHigh Triglyceride: 200-499 mg/dLVery High Triglyceride: greater than or equal to 5OO mg/dL Cholesterol 181 <200 mg/dL [facility] Comment:Desirable Cholestero l: less than 200 mg/dLBorderline High Cholesterol: 200-239 mg/dLHigh Cholesterol: greater than 239 mg/dL LDL Cholesterol Calculated 100(H) <100 mg/dL [facility] Comment:Desirable LDL: less than 100 mg/dLNear Optimal/Above Optimal LDL: 110- 129 mg/dLBorderline High LDL: 130-159 mg/dLHigh LDL: 160-189 mg/dLVery High LDL: greater than or equal to 190 mg/dL HDL Cholesterol 64 >40 mg/dL [facility] Comment:Desirable HDL: great er than 40 mg/dL Note: This HDL assay may give artificially low results in patients with liver disease. Blood Venous blood specimen / Unknown 07/09/2024 8:59 AM EST 07/09/2024 2:20 PM EST us Joyce Tapia MD LAB BLOOD ORDERABLES Final Resul t [facility] [address] [place] [phone] * (ABNORMAL) Basic Metabolic Panel (07/09/2024 8:59 AM EST) Sodium 142 135 - 145 mmol/L [facility] Potassium 3.7 3.3 - 5.1 mmol/L [facility] Chloride 108 96 - 108 mmol/L [facility] Carbon Dioxide 27 22 - 29 mmol/L [facility] Anion Gap 11(L) 12 - 20 [facility] Urea Nitrogen (BUN) 14 9 - 16 mg/dL [facility] Creatinine, Serum 0.73 0.5 - 1.4 mg/dL [facility] Estimated Glomerular Filt Rate >60 [facility] Comment:Chronic Kidney Disea se: Estimated GFR < 60 mL/min/1.11p4Njzamm Kidney Disease: Estimated GFR < 15 mL/min/1.73m2 Glucose 142(H) 60 - 115 mg/dL [facility] Calcium 8.8 8.4 - 10.2 mg/dL [facility] Blood Venous blood specimen / Unknown 07/09/2024 8:59 AM EST 07/09/2024 2:20 PM EST Joyce Tapia MD LAB BLOOD ORDERABLES Final Resul t [facility] [address] [place] [phone] * POCT Glucose (07/09/2024 8:41 AM EST) Glucose Blood, POC 118 60 - 200 mg/dL QC Media Lot # [id number] Lot# Expiration Date Blood Capillary blood specimen / Unknown 07/09/2024 8:41 AM EST Joyce Tapia MD POINT OF CARE TEST ENTER/EDIT OR DERABLES Final Result documented in this encounter Visit Diagnoses Diagnosis Gastroesophageal reflux disease without esophagitis- Primary Esophageal reflux Type 2 diabetes mellitus without complication, without long-term current use of insulin ([facility]) Rectal bleeding Hemorrhage of rectum and anus documented in this encounter Care Teams Hand Mica Plate Layer Relationship Specialty Start Date End Date Joyce Tapia MD [address] [place] [phone] PCP - General Family Medicine 06/19/12 documented as of this encounter
--- OUTSIDE RECORDS SUMMARY | 2024-08-01 10:18 | XMS_ITS | Encounter Summary ---
Author Organization [employer] Address [address] [facility] 7t [place] [address] Care Team Providers Care It Quality Assurance Analyst Name Role Phone Joyce Tapia MD Primary Care Provider Reason for Visit * Reason Onset Date Comments Med Refill 03/17/2023 Encounter Details Date Type Department Care Team (Late st Contact Info) Description 03/17/2023 Telephone [facility] MED & PEDS [address] [place] [address] Joyce Tapia MD [address] [place] [address] Med Refill Social History Tobacco Use Types Packs/Day Years Used Date Smoking Tobacco: Every Day Cigarettes Passive Smoke Exposure: Never Smokeless Tobacco: Never Alcohol Use Standard Drinks/Week Comments Never 0 (1 standard drink = 0.6 oz pur e alcohol) Comments Unknown Sex and Gender Information Value Date Recorded Sex Assigned at Female 05/03/2022 10:18 AM EDT Legal Sex Female 10:18 AM EDT Gender Identity Female 05/03/2022 10:18 AM EDT Sexual Orientation Straight 05/03/2022 10 :18 AM EDT documented as of this encounter Miscellaneous Notes * Telephone Encounter - Maxine Tillman - 03/17/2023 8:04 AM EDT Tc from pt requesting med refill for medication oxyCODONE (Roxicodone) 5 MG immediate release tablet. documented in this encounter Plan of Treatment Upcoming Encounters Date Type Department Care Team (Late st Contact Info) Description 08/09/2024 10:30 AM EST Clinical Support [facility] MED [facility] PEDS [address] [place] [address] Katherine Casper, MAKEDA [address] [place] [address] 09/06/2024 8:30 AM EST Office Visit [facility] MED [facility] PEDS [address] [place] [address] Joyce Tapia MD [address] [place] [address] documented as of this encounter Visit Diagnoses Not on filedocumented in this encounter Care Teams It Quality Assurance Analyst Relationship Specialty Start Date End Date Joyce Tapia MD [address] [place] [phone] PCP - General Family Medicine 06/19/12 documented as of this encounter
--- OUTSIDE RECORDS SUMMARY | 2024-08-01 10:18 | XMS_ITS | Encounter Summary ---
Author Organization [employer] Address [address] [facility] 7t [place] [address] Care Team Providers Care Staff Nurse Name Role Phone Joyce Tapia MD Primary Care Provider [phone] Reason for Visit * Reason Onset Date Comments Med Refill 07/09/2024 Encounter Details Date Type Department Care Team (Late st Contact Info) Description 07/09/2024 Refill [facility]EDS [address] [place], [place] [phone] Joyce Tapia MD [address] [place] [address] Status post surgical removal of nail matrix of toe of left foot Social History Tobacco Use Types Packs/Day Years [...] encounter Miscellaneous Notes * Telephone Encounter - Capo Wagner - 07/09/2024 8:51 AM EST Patient requesting med refill for oxyCODONE (Roxicodone) 5 MG immediate release tablet . Please send to [facility] Claudine Molina. documented in this encounter Plan of Treatment Upcoming Encounters Date Type Department Care Team (Late st Contact Info) Description 08/09/2024 10:30 AM EST Clinical Support [facility] MED & PEDS [address] [place] [address] Katherine Casper, RN [address] [place] [address] 09/06/2024 8:30 AM EST Office Visit [facility] MED & PEDS [address] [place] [address] Joyce Tapia MD [address] [place] [address] documented as of this encounter Visit Diagnoses Diagnosis Status post surgical removal of nail matrix of toe of left foot documented in this encounter Care Teams Staff Nurse Relationship Specialty Start Date End Date Joyce Tapia MD [address] [place] [phone] PCP - General Family Medicine 06/19/12 documented as of this encounter
--- OUTSIDE RECORDS SUMMARY | 2024-08-01 10:18 | XMS_ITS | Encounter Summary ---
Author Organization [employer] Address [address] [facility] 7t [place] [address] Care Team Providers Care Seam Taper Machine Name Role Phone Joyce Tapia MD Primary Care Provider [phone] Reason for Visit * Reason Onset Date Comments Med Refill 07/25/2024 Encounter Details Date Type Department Care Team (Late st Contact Info) Description 07/25/2024 Refill [facility] MEDICINE [address] [place] [address] Emerson Keith MD [address] [place] [address] Status post surgical removal of nail matrix [...] 10:30 AM EST Clinical Support [facility] MED & PEDS [address] [place] [address] Katherine Casper, RN 505 [place] [address] 09/06/2024 8:30 AM EST Office Visit [facility] MED & PEDS [address] [place] [address] Joyce Tapia MD [address] [place] [address] documented as of this encounter Visit Diagnoses Diagnosis Status post surgical removal of nail matrix of toe of left foot documented in this encounter Care Teams Seam Taper Machine Relationship Specialty Start Date End Date Joyce Tapia MD [address] [place] [phone] PCP - General Family Medicine 06/19/12 documented as of this encounter
--- OUTSIDE RECORDS SUMMARY | 2024-08-01 10:18 | XMS_ITS | Encounter Summary ---
Author Organization [employer] Address [address] [facility] [address] 7[address] [place] [address] Care Team Providers Care Individualized Education Plan Aide Name Role Phone Joyce Tapia MD Primary Care Provider [phone] Reason for Visit * Reason Onset Date Comments Med Refill 07/19/2024 Encounter Details Date Type Department Care Team (Late st Contact Info) Description 07/19/2024 Refill [facility] MEDICINE [address] [place] [address] Joyce Tapia MD [address] [place] [address] Status post surgical removal of nail matrix [...] Description 08/09/2024 10:30 AM EST Clinical Support [facility] MED & PEDS [address] [place] [address] Katherine Casper, RN [address] [place] [address] 09/06/2024 8:30 AM EST Office Visit [facility] MED & PEDS [address] [place] [address] Joyce Tapia MD 505 [place] [address] documented as of this encounter Visit Diagnoses Diagnosis Status post surgical removal of nail matrix of toe of left foot documented in this encounter Care Teams Individualized Education Plan Aide Relationship Specialty Start Date End Date Joyce Tapia MD [address] [place] [phone] PCP - General Family Medicine 06/19/12 documented as of this encounter
--- OUTSIDE RECORDS SUMMARY | 2024-08-01 10:18 | XMS_ITS | Encounter Summary ---
Author Organization [employer] Address [address] [facility] [address] [place] [address] Care Team Providers Care Truck Sales Representative Name Role Phone Joyce Tapia MD Primary Care Provider [phone] Reason for Visit * Reason Comments Med Refill Encounter Details Date Type Department Care Team ([facility] st Contact Info) Description 04/12/2024 Refill [facility] MED & PEDS [address] [place], [place] [phone] Joyce Tapia MD [address] [place] [address] Status post surgical removal of nail matrix [...] 08/09/2024 10:30 AM EST Clinical Support [facility] MED & PEDS [address] [place] [address] Katherine Casper RN [address] [place] [address] 09/06/2024 8:30 AM EST Office Visit [facility] MED & PEDS [address] [place] [address] Joyce Tapia MD [address] [place] [address] documented as of this encounter Visit Diagnoses Diagnosis Status post surgical removal of nail matrix of toe of left foot documented in this encounter Care Teams Truck Sales Representative Relationship Specialty Start Date End Date Joyce Tapia MD [address] [place] [phone] PCP - General Family Medicine 06/19/12 documented as of this encounter
--- OUTSIDE RECORDS SUMMARY | 2024-08-01 10:18 | XMS_ITS | Encounter Summary ---
Author Organization [employer] Address [address] 7[address] [place] [address] Care Team Providers Care Rotoprinter Name Role Phone Joyce Tapia MD Primary Care Provider [phone] Reason for Visit * Reason Onset Date Comments Med Refill 04/18/2024 Encounter Details Date Type Department Care Team ([facility] st Contact Info) Description 04/18/2024 Telephone [facility] MEDICINE [address] [place] [address] Joyce Tapia MD [address] [place], [place] [phone] Med Refill Social History Tobacco Use Types Packs/Day Years Used Date Smoking Tobacco: Every Day Cigarettes Passive Smoke Exposure: Never Smokeless Tobacco: Never Alcohol Use Standard Drinks/Week Comments Never 0 (1 standard drink = 0.6 oz pur e alcohol) Housing Stability Answer Date Recorded What is your housing situation today? I have yadirashiv han 01/04/[address] you [...] encounter Miscellaneous Notes * Telephone Encounter - Gómez Forde - 04/18/2024 9:09 AM EDT Tc from pt requesting a refill for oxyCODONE (Roxicodone) 5 MG immediate release tablet documented in this encounter Plan of Treatment Upcoming Encounters Date Type Department Care Team (Late st Contact Info) Description 08/09/2024 10:30 AM EST Clinical Support [facility] MED & PEDS [address] [place] [address] Katherine Casper, RN [address] [place] [address] 09/06/2024 8:30 AM EST Office [facility] MED & PEDS [address] [place] [address] Joyce Tapia MD [address] [place] [address] documented as of this encounter Visit Diagnoses Not on filedocumented in this encounter Care Teams Rotoprinter Relationship Specialty Start Date End Date Joyce Tapia MD [address] [place] [address] PCP - General Family Medicine 06/19/12 documented as of this encounter
--- OUTSIDE RECORDS SUMMARY | 2024-08-01 10:18 | XMS_ITS | Encounter Summary ---
Author Organization [employer] Address [address] [facility] [address] [place] [address] Care Team Providers Care Plumbing Engineer Name Role Phone Joyce Tapia MD Primary Care Provider [phone] Reason for Visit * Reason Onset Date Comments Med Refill 07/08/2024 Encounter Details Date Type Department Care Team (Late st Contact Info) Description 07/08/2024 Refill [facility] MEDICINE [address] [place] [address] Kassi Johnston FNP [address] [place] [address] Status post surgical removal of nail matrix [...] 08/09/2024 10:30 AM EST Clinical Support [facility] MED & PEDS [address] [place] [address] Katherine Casper RN [address] [place] [address] 09/06/2024 8:30 AM EST Office Visit [facility] MED & PEDS [address] [place] [address] Joyce Tapia MD [address] [place] [address] documented as of this encounter Visit Diagnoses Diagnosis Status post surgical removal of nail matrix of toe of left foot documented in this encounter Care Teams Plumbing Engineer Relationship Specialty Start Date End Date Joyce Tapia MD [address] [place] [phone] PCP - General Family Medicine 06/19/12 documented as of this encounter
--- OUTSIDE RECORDS SUMMARY | 2024-08-01 10:18 | XMS_ITS | Encounter Summary ---
Author Organization [employer] Address [address] [facility] [address] [place] [address] Care Team Providers Care Portable Canteen Operator Name Role Phone Joyce Tapia MD Primary Care Provider [phone] Encounter Details Date Type Department Care Team (Latest Contact Info) Description 07/09/2024 Travel Social History Tobacco Use Types Packs/Day Years [...] Description 08/09/2024 10:30 AM EST Clinical Support [facility] MED & PEDS [address] [place] [address] Katherine Casper, MAKEDA [address] [place] [address] 09/06/2024 8:30 AM EST Office Visit [facility] MED & PEDS [address] [place] [address] Joyce Tapia MD [address] [place] [address] documented as of this encounter Visit Diagnoses Not on filedocumented in this encounter Care Teams Portable Canteen Operator Relationship Specialty Start Date End Date Joyce Tapia MD [address] [place] [phone] PCP - General Family Medicine 06/19/12 documented as of this encounter
--- OUTSIDE RECORDS SUMMARY | 2024-08-01 10:18 | XMS_ITS | Encounter Summary ---
Author Organization [employer] Address [address] 7t [place] [address] Care Team Providers Care Design Maintenance Engineer Name Role Phone Joyce Tapia MD Primary Care Provider [phone] Reason for Visit * Reason Onset Date Comments Med Refill 04/11/2024 Encounter Details Date Type Department Care Team ([facility] st Contact Info) Description 04/11/2024 Telephone [facility] MED & PEDS [address] [place], [place] [phone] Joyce Tapia MD 505 [place] [address] Med Refill Social History Tobacco Use Types [...] * Telephone Encounter - Maxine Tillman - 04/12/2024 10:42 AM EDT Tc from pt requesting status on med refill. * Telephone Encounter - Maxine Tillman - 04/11/2024 1:29 PM EDT TC from pt requesting medication refill. Medications needing refill : oxyCODONE (Roxicodone) 5 MG immediate release tablet To be sent to: [facility] - [place], [place] - [address] [place] [address] documented in this encounter Plan of Treatment Upcoming Encounters Date Type Department Care Team ([facility] st Contact Info) Description 08/09/2024 10:30 AM EST Clinical Support [facility] MED & PEDS [address] [place] [address] Katherine Casper RN 505 [place] [address] 09/06/2024 8:30 AM EST Office Visit [facility] MED & PEDS [address] [place] [address] Joyce Tapia MD 505 [place] [address] documented as of this encounter Visit Diagnoses Not on filedocumented in this encounter Care Teams Design Maintenance Engineer Relationship Specialty Start Date End Date Joyce aTpia MD [address] [place] [address] PCP - General Family Medicine 06/19/12 documented as of this encounter
--- OUTSIDE RECORDS SUMMARY | 2024-08-01 10:18 | XMS_ITS | Encounter Summary ---
Author Organization [employer] Address [address] 7t [place] [address] Care Team Providers Care Certified Tumor Registrar Name Role Phone Joyce Tapia MD Primary Care Provider [phone] Encounter Details Date Type Department Care Team (Late st Contact Info) Description 07/18/2024 Orders Only GENERIC EXTERNAL DATA DEPARTMENT Provider, Generic External Data Social History Tobacco Use Types Packs/Day Years Used Date Smoking Tobacco: Every Day Cigarettes Passive Smoke Exposure: Never Smokeless Tobacco: Never Alcohol Use Standard Drinks/Week Comments Never 0 (1 standard drink = 0.6 oz pur e alcohol) Housing Stability Answer Date Recorded What is your housing situation today? I have yadira guille 01/04/[address] you li [...] Upcoming Encounters Date Type Department Care Team ([facility] st Contact Info) Description 08/09/2024 10:30 AM EST Clinical Support [facility] MED & PEDS 505 [place] [address] Katherine Casper RN 505 [place] [address] 09/06/2024 8:30 AM EST Office Visit [facility] MED & PEDS 505 [place] [address] Joyce Tapia MD 505 [place] [address] documented as of this encounter Procedures Procedure Name Priority Date/Time Associated Diagnosis Comments XR HAND 3+ VIEWS LEFT Routine 07/21/2024 11:57 PM EST HEMATOXYLIN AND EOSIN STAIN Routine 07/18/2024 8:13 AM EST GLUCOSE, WHOLE BLOOD Routine 07/18/2024 7:34 AM EST documented in this encounter Results * XR Hand 3+ Views Left (07/21/2024 11:57 PM EST) Anatomical Region Laterality Modality Upper Extremities, Hand Left Radiogra [facility] Imaging 07/21/2024 11:5 7 PM EST Narrative 07/21/2024 11:59 PM EST ? [facility] ?[address] ?[place] [address] ?XRay Report ? Signed ? Patient: Grover,Nayely ?MR#: [id number] ?? [id number] ? : 1960 ?Acct:[id number] ? Age/Sex: 63 / F ?ADM Date: 01/18/25 ? Loc: HO.ED ? Attending Dr: ? Ordering Physician: Janel Pitts MD ?? Date of Service: 07/21/24 ?? Procedure(s): XR hand LT min 3V ?? Accession Number(s): [id number] ? cc: Joyce Tapia MD; Janel Pitts MD ? CLINICAL HISTORY: injury ? 3 view left hand ? Comparison: None ? Findings: ?? Bones intact. No dislocations. ?? No significant loss of joint space or osteophytes. ?? No erosions. No radiopaque foreign body. ? IMPRESSION: ?? 1. No acute findings ? This document has been electronically signed by: Lou Zee MD on ?? 07/21/2024 23:57:43 ? Dictated By: ?Lou Zee MD ? Signed By: ?<Electronically signed by Lou Zee MD in OV> ? 07/21/24 2358 ? DD/ 56 ? TD/TT: 07/21/242356 ? Psychological Anthropologist: ? Procedure Note Sukhter, Image - 07/22/2024 [place] [address] XRay Report Signed Patient: Nayely GroverMR#: [id number] : 1960Acct:[id number] Age/Sex: 63 / FADM Date: 07/21/24 Loc: HO.ED Attending Dr: Ordering Physician: Janel Pitts MD Date of Service: 07/21/24 Procedure(s): XR hand LT min 3V Accession Number(s): [id number] cc: Joyce Tapia MD; Janel Pitts MD CLINICAL HISTORY: injury 3 view left hand Comparison: None Findings: Bones intact. No dislocations. No significant loss of joint space or osteophytes. No erosions. No radiopaque foreign body. IMPRESSION: 1. No acute findings This document has been electronically signed by: Lou Zee MD on 07/21/2024 23:57:43 Dictated By: Lou Zee MD Signed By: <Electronically signed by Lou Zee MD in OV> 07/21/248 DD/ 56 TD/TT: 07/21/242356 Psychological Anthropologist: [facility] External Provider IMG XR PROCEDURES Edited Result - Final * Hematoxylin and Eosin Stain (07/18/2024 8:13 AM EST) 07/18/2024 8:13 AM EST 07/18/2024 9:01 AM EST [facility] - 07/20/2024 9:46 AM EST ----- ------- Name: Nayely Grover ?Age/Sex: 63/F ? : 1960 Unit#: [id number] ?? Attend Dr: Donald Pa MD ?Re07/18/24 ?Status: DEP SDC ? Location: HO.SSS ?Disch: ? ----- ------- SPEC : [id number] ?RECD: 07/18/24-900 ? STATUS: ??SOUT ? REQ NUM: [id number] ? JOSE: 07/18/24 ? SUBM DR: Donald Pa MD ? ENTERED: ??07/18/24 ?SP TYPE: Surgical ? OTHR DR: Joyce Tapia MD ? ORDERED: ??HE Stain/9, Gross Micro L4/3, IHC, Special st. 2, H. pylori, AB/PAS ? Diagnosis ?? A. ??Stomach, pouch, biopsy: ??Oxyntic mucosa within normal limits; no Helicobacter ?? organisms seen. ? B. ??EG junction, biopsy: ?- Small focus of cardiac-type mucosa within normal limits; no intestinal metaplasia ?? seen. ?- Squamous epithelium within normal limits. ? C. ??Esophagus, biopsy: ??Squamous epithelium within normal limits; no inflammation seen. ?Clinical History Pre-Op Dx: ??Abdominal pain Post-Op Dx: Normal ?Microscopic Description A-C. ??Microscopic sections examined. ??No metaplastic changes are seen, supported by AB/PAS stains (A); no Helicobacter organisms are seen, supported by H. pylori immunostain (A). ? Material Received ?? A. Gastric pouch ?? B. EG junction ?? C. Esophagus ? Gross Description Received in three parts. Part A: ??Received in formalin labeled ?gastric pouch? is a 0.6 cm gee-pink rectangular tissue fragment, submitted in toto in a cassette labeled A. Part B: ??Received in formalin labeled ?EG junction? are 2 deleon-pink irregular and rectangular tissue fragments measuring 0.15 and 0.3 cm, submitted in toto in a cassette labeled B. Part C: ??Received in formalin labeled ?esophagus? are 2 gee-pink irregular tissue fragments each measuring 0.2 cm, submitted in toto in a cassette labeled C. ??CEDS Special studies ordered and performed: Immunostain for H. pylori on A; AB/PAS stains on A ? CONTINUED ON NEXT PAGE ----- ------- Name: Nayely Grover ?Age/Sex: 63/F ? : 1960 Unit#: [id number] ?? Attend Dr: Donald Pa MD ?Re07/18/24 ?Status: DEP SDC ? Location: HO.SSS ?Disch: ? ----- ------- SPEC : [id number] ?RECD: 07/18/24-900 ? STATUS: ??SOUT ? REQ NUM: [id number] ? JOSE: 07/18/24-812 ? SUBM DR: Donald Pa MD ? ENTERED: ??07/18/24-914 ?SP TYPE: Surgical ? OTHR DR: Joyce Tapia MD ? ORDERED: ??HE Stain/9, Gross Micro L4/3, IHC, Special st. 2, H. pylori, AB/PAS ? Copies To: ?? Joyce Tapia MD ?? [facility] ?? [address] ?? [place] [address] ?? [phone] ?? Donald Pa MD ?? [facility] ?? [address] ?? [place] [address] ?? [phone] ----- ------- Signed (signature on file) Ayan Romero MD 07/20/2446 ? ----- ------- ? END OF REPORT ? us Generic External Data Provider LAB BLOOD ORDERAB LES Final Result [facility] [address] [place] [address] [phone] * (ABNORMAL) Glucose, Whole Blood (07/18/2024 7:34 AM EST) Glucose, Whole Blood 141(H) 60 - 115 mg/dL [facility] Comment:METER #: [id number] 07/18/2024 7:34 AM EST 07/18/2024 7:38 AM EST us Generic External Data Provider LAB BLOOD ORDERAB LES Final Result [facility] [address] [place] [address] [phone] documented in this encounter Visit Diagnoses Not on filedocumented in this encounter Care Teams Certified Tumor Registrar Relationship Specialty Start Date End Date Joyce Tapia MD [address] [place] [address] PCP - General Family Medicine 06/19/12 documented as of this encounter
--- OUTSIDE RECORDS SUMMARY | 2024-08-01 10:18 | XMS_ITS | Encounter Summary ---
Author Organization [employer] Address [address] 7t [place] [address] Care Team Providers Care Aircraft Mechanic Electrical And Radio Name Role Phone Joyce Tapia MD Primary Care Provider [phone] Reason for Visit * Reason Onset Date Comments Med Refill 04/19/2024 Encounter Details Date Type Department Care Team (Late st Contact Info) Description 04/19/2024 Refill [facility] MEDICINE [address] [place] [address] Joyce Tapia MD [address] [place] [address] Status post surgical removal of nail matrix [...] Description 08/09/2024 10:30 AM EST Clinical Support [facility] MED & PEDS 505 [place] [address] Katherine Casper, RN 505 [place] [address] 09/06/2024 8:30 AM EST Office Visit [facility] MED & PEDS [address] [place] [address] Joyce Tapia MD 505 [place] [address] documented as of this encounter Visit Diagnoses Diagnosis Status post surgical removal of nail matrix of toe of left foot documented in this encounter Care Teams Aircraft Mechanic Electrical And Radio Relationship Specialty Start Date End Date Joyce Tapia MD [address] [place] [address] PCP - General Family Medicine 06/19/12 documented as of this encounter
--- OUTSIDE RECORDS SUMMARY | 2024-08-01 10:18 | XMS_ITS | Encounter Summary ---
Author Organization [employer] Address [address] [facility] 7t [place] [address] Care Team Providers Care Boat Outfitting Supervisor Name Role Phone Joyce Tapia MD Primary Care Provider [phone] Reason for Visit * Reason Onset Date Comments Med Refill 07/19/2024 Encounter Details Date Type Department Care Team ([facility] st Contact Info) Description 07/19/2024 Refill [facility] MED & PEDS [address] [place], [place] [phone] Joyce Tapia MD 505 [place] [address] Social History Tobacco Use Types Packs/Day Years [...] 08/09/2024 10:30 AM EST Clinical Support [facility] MED & PEDS [address] [place] [address] Katherine Casper RN 505 [place] [address] 09/06/2024 8:30 AM EST Office Visit [facility] MED & PEDS [address] [place] [address] Joyce Tapia MD 505 [place] [address] documented as of this encounter Visit Diagnoses Not on filedocumented in this encounter Care Teams Boat Outfitting Supervisor Relationship Specialty Start Date End Date Joyce Tapia MD [address] [place] [address] PCP - General Family Medicine 06/19/12 documented as of this encounter
--- OUTSIDE RECORDS SUMMARY | 2024-08-01 10:18 | XMS_ITS | Encounter Summary ---
Author Organization [employer] Address [address] 7t [place] [address] Care Team Providers Care Pre Assembly Wirer Name Role Phone Joyce Tapia MD Primary Care Provider [phone] Encounter Details Date Type Department Care Team (Late st Contact Info) Description 07/25/2024 Telephone [facility] MEDICINE 230 [place] [address] Joyce Tapia MD [address] [place], [place] [phone] Social History Tobacco Use Types Packs/Day Years [...] encounter Miscellaneous Notes * Telephone Encounter - Mayelin Hayden - 07/25/2024 1:52 PM EST Patient was seen by perioperative educator within the past 6 months and would benefit from a transition to the pharmacy CDTM program. Please send a referral for CDTM - Diabetes to ensure continuity of care. Thank you! documented in this encounter Plan of Treatment Upcoming Encounters Date Type Department Care Team (Late st Contact Info) Description 08/09/2024 10:30 AM EST Clinical Support [facility] MED & PEDS [address] [place] [address] Katherine Casper, RN 505 [place] [address] 09/06/2024 8:30 AM EST Office Visit [facility] MED & PEDS [address] [place] [address] Joyce Tapia MD 505 [place] [address] documented as of this encounter Visit Diagnoses Not on filedocumented in this encounter Care Teams Pre Assembly Wirer Relationship Specialty Start Date End Date Joyce Tapia MD [address] [place] [address] PCP - General Family Medicine 06/19/12 documented as of this encounter
--- OUTSIDE RECORDS SUMMARY | 2024-08-01 10:19 | XMS_ITS ---
Author Organization [employer] Address [address] [place] [address] 7 [place] [address] Care Team Providers Care Recyclable Products Sorter Name Role Phone Joyce Tapia MD Primary Care Provider [phone] BANKRUPTCY ASSISTANT Status:Enrolled (Active) Start date:10/22/2022 Enrollment date:10/22/2022 Case Team Name Relationship Phone Katherine Casper RN Registered Nurse(Responsible S taff) Continued Care and Services Coordination
--- OUTSIDE RECORDS SUMMARY | 2024-08-01 10:19 | XMS_ITS | Encounter Summary ---
Author Organization [employer] Address [address] [facility] 7t [place] [address] Care Team Providers Care Associate Media Planner Name Role Phone Joyce Tapia MD Primary Care Provider [phone] Reason for Visit * Reason Onset Date Comments Referral 03/09/2023 Encounter Details Date Type Department Care Team ([facility] st Contact Info) Description 03/09/2023 Telephone [facility] MED & PEDS [address] [place], [place] [phone] Joyce Tapia MD 505 [place] [address] Referral Social History Tobacco Use Types Packs/Day Years [...] encounter Miscellaneous Notes * Telephone Encounter - Chuyita Luo - 03/09/2023 1:23 PM EDT Tc from pt requesting an order for MRI to spine as well as a new referral for spine surgery. Statesnext appointment is in april and does not want to wait that long. Please contact pt at [phone] documented in this encounter Plan of Treatment Upcoming Encounters Date Type Department Care Team (Late st Contact Info) Description 08/09/2024 10:30 AM EST Clinical Support [facility] MED & PEDS [address] [place] [address] Katherine Casper, RN 505 [place] [address] 09/06/2024 8:30 AM EST Office Visit [facility] MED & PEDS [address] [place] [address] Joyce Tapia MD 505 [place] [address] documented as of this encounter Visit Diagnoses Not on filedocumented in this encounter Care Teams Associate Media Planner Relationship Specialty Start Date End Date Joyce Tapia MD [address] [place] [address] PCP - General Family Medicine 06/19/12 documented as of this encounter
--- OUTSIDE RECORDS SUMMARY | 2024-08-01 10:19 | XMS_ITS | Encounter Summary ---
Author Organization [employer] Address [address] 7t [place] [address] Care Team Providers Care Experimental Worker Name Role Phone Joyce Tapia MD Primary Care Provider [phone] Reason for Visit * Reason Onset Date Comments Med Refill 05/08/2024 Encounter Details Date Type Department Care Team (Late st Contact Info) Description 05/08/2024 Refill [facility] MEDICINE [address] [place] [address] Joyce Tapia MD [address] [place] [address] Muscle spasm Social History Tobacco Use Types Packs/Day Years [...] 08/09/2024 10:30 AM EST Clinical Support [facility] MED & PEDS 505 [place] [address] Katherine Casper, MAKEDA 505 [place] [address] 09/06/2024 8:30 AM EST Office Visit [facility] MED & PEDS [address] [place] [address] Joyce Tapia MD 505 [place] [address] documented as of this encounter Visit Diagnoses Diagnosis Muscle spasm Spasm of muscle documented in this encounter Care Teams Experimental Worker Relationship Specialty Start Date End Date Joyce Tapia MD [address] [place] [address] PCP - General Family Medicine 06/19/12 documented as of this encounter
--- OUTSIDE RECORDS SUMMARY | 2024-08-01 10:19 | XMS_ITS | Encounter Summary ---
Author Organization [employer] Address [address] 7t [place] [address] Care Team Providers Care Manufacturing Manager Name Role Phone Joyce Tapia MD Primary Care Provider [phone] Reason for Visit * Reason Onset Date Comments Med Refill 07/13/2024 Encounter Details Date Type Department Care Team ([facility] st Contact Info) Description 07/13/2024 Refill [facility] MED & PEDS 505 [place], [place] [phone] Joyce Tapia MD 505 [place] [address] Social History Tobacco Use Types Packs/Day Years [...] Clinical Support [facility] MED & PEDS 505 [place] [address] Katherine Casper RN 505 [place] [address] 09/06/2024 8:30 AM EST Office Visit [facility] MED & PEDS [address] [place] [address] Joyce Tapia MD 505 [place] [address] documented as of this encounter Visit Diagnoses Not on filedocumented in this encounter Care Teams Manufacturing Manager Relationship Specialty Start Date End Date Joyce Tapia MD [address] [place] [address] PCP - General Family Medicine 06/19/12 documented as of this encounter
--- OUTSIDE RECORDS SUMMARY | 2024-08-01 10:19 | XMS_ITS | Encounter Summary ---
Author Organization [employer] Address [address] 7t [place] [address] Care Team Providers Care Clinical Business Analyst Name Role Phone Joyce Tapia MD Primary Care Provider [phone] Reason for Visit * Reason Onset Date Comments Med Refill 04/25/2024 Encounter Details Date Type Department Care Team ([facility] st Contact Info) Description 04/25/2024 Telephone [facility] MEDICINE [address] [place] [address] Joyce Tapia MD [address] [place], [place] [phone] Med Refill Social History Tobacco Use Types [...] encounter Miscellaneous Notes * Telephone Encounter - Sha Harris - 04/25/2024 8:24 AM EDT TC from pt requesting medication refill. Medications needing refill : oxyCODONE (Roxicodone) 5 MG To be sent to: [facility] documented in this encounter Plan of Treatment Upcoming Encounters Date Type Department Care Team (Late st Contact Info) Description 08/09/2024 10:30 AM EST Clinical Support [facility]ED[facility] 505 [place] [address] Katherine Casper RN 505 [place] [address] 09/06/2024 8:30 AM EST Office Visit [facility] PEDS 505 [place] [address] Joyce Tapia MD 505 [place] [address] documented as of this encounter Visit Diagnoses Not on filedocumented in this encounter Care Teams Clinical Business Analyst Relationship Specialty Start Date End Date Joyce Tapia MD [address] [place] [address] PCP - General Family Medicine 06/19/12 documented as of this encounter
--- OUTSIDE RECORDS SUMMARY | 2024-08-01 10:19 | XMS_ITS | Encounter Summary ---
Author Organization [employer] Address [address] 7[address] [place] [address] Care Team Providers Care Line Construction Supervisor Name Role Phone Joyce Tapia MD Primary Care Provider [phone] Reason for Visit * Reason Onset Date Comments Med Refill 05/02/2024 Encounter Details Date Type Department Care Team ([facility] st Contact Info) Description 05/02/2024 Telephone [facility] MEDICINE 230 [place] [address] Joyce Tapia MD [address] [place], [place] [phone] Med Refill Social History Tobacco Use Types [...] * Telephone Encounter - Gómez Forde - 05/02/2024 8:24 AM EDT Tc from pt requesting a refill for oxyCODONE (Roxicodone) 5 MG immediate release tablet. documented in this encounter Plan of Treatment Upcoming Encounters Date Type Department Care Team (Late st Contact Info) Description 08/09/2024 10:30 AM EST Clinical Support [facility] MED & PEDS 505 [place] [address] Katherine Casper, RN 505 [place] [address] 09/06/2024 8:30 AM EST Office Visit [facility] MED & PEDS 505 [place] [address] Joyce Tapia MD 505 [place] [address] documented as of this encounter Visit Diagnoses Not on filedocumented in this encounter Care Teams Line Construction Supervisor Relationship Specialty Start Date End Date Joyce Tapia MD [address] [place] [address] PCP - General Family Medicine 06/19/12 documented as of this encounter
--- OUTSIDE RECORDS SUMMARY | 2024-08-01 10:19 | XMS_ITS | Encounter Summary ---
Author Organization [employer] Address [address] [facility] 7t [place] [address] Care Team Providers Care Personal Development Coach Name Role Phone Joyce Tapia MD Primary Care Provider [phone] Reason for Visit * Reason Onset Date Comments Med Refill 04/19/2023 Encounter Details Date Type Department Care Team (Late st Contact Info) Description 04/19/2023 Telephone [facility] MED & PEDS [address] [place] [address] Joyce Tapia MD 505 [place] [address] Med Refill Social History Tobacco Use Types [...] * Telephone Encounter - Chuyita Luo - 04/19/2023 12:51 PM EDT Tc from pt requesting medication refill on zolpidem (Ambien) 5 MG tablet documented in this encounter Plan of Treatment Upcoming Encounters Date Type Department Care Team (Late st Contact Info) Description 08/09/2024 10:30 AM EST Clinical Support [facility] MED & PEDS [address] [place] [address] Katherine Casper, MAKEDA 505 [place] [address] 09/06/2024 8:30 AM EST Office Visit [facility] MED & PEDS [address] [place] [address] Joyce Tapia MD [address] [place] [address] documented as of this encounter Visit Diagnoses Not on filedocumented in this encounter Care Teams Personal Development Coach Relationship Specialty Start Date End Date Joyce Tapia MD [address] [place] [address] PCP - General Family Medicine 06/19/12 documented as of this encounter
--- OUTSIDE RECORDS SUMMARY | 2024-08-01 10:19 | XMS_ITS | Encounter Summary ---
Author Organization [employer] Address [address] [place] [address] Care Team Providers Care Accounting Machine Operator Name Role Phone Joyce Tapia MD Primary Care Provider [phone] Reason for Visit * Reason Onset Date Comments Referral 04/25/2023 Encounter Details Date Type Department Care Team ([facility] st Contact Info) Description 04/25/2023 Telephone [facility] MED[facility]INE [address] [place], [place] [phone] Joyce Tapia MD [address] [place], [place] [phone] Referral Social History Tobacco Use Types Packs/Day [...] encounter Miscellaneous Notes * Telephone Encounter - Alan Torres RN - 04/26/2023 12:15 PM EDT Please see referral request below. Thanks. * Telephone Encounter - Gómez Forde - 04/25/2023 2:22 PM EDT Tc from pt requesting a referral for gastroenterology for colonoscopy, @ [address], [facility], [address]. Pt stated has been there before for colonoscopy however has been more than 3 years and will need a new referral. Please contact at [phone] documented in this encounter Plan of Treatment Upcoming Encounters Date Type Department Care Team (Late st Contact Info) Description 08/09/2024 10:30 AM EST Clinical Support [facility] [address] [place] [address] Katherine Casper RN [address] [place] [address] 09/06/2024 8:30 AM EST Office Visit [facility] [address] [place] [address] Joyce Tapia MD [address] [place] [address] documented as of this encounter Visit Diagnoses Not on filedocumented in this encounter Care Teams Accounting Machine Operator Relationship Specialty Start Date End Date Joyce Tapia MD [address] [place] [address] PCP - General Family Medicine 06/19/12 documented as of this encounter
--- OUTSIDE RECORDS SUMMARY | 2024-08-01 10:19 | XMS_ITS | Encounter Summary ---
Author Organization [employer] Address [address] [place] [address] Care Team Providers Care Procedures Rn Name Role Phone Joyce Tapia MD Primary Care Provider [phone] Reason for Visit * Reason Onset Date Comments Med Refill 07/13/2024 Encounter Details Date Type Department Care Team (Late st Contact Info) Description 07/13/2024 Refill [facility] MEDICINE [address] [place], [place] [phone] Amber Palacio MD [address] [place], [place] [phone] Smoker Social History Tobacco Use Types Packs/Day [...] [facility] [address] [place] [address] Katherine Casper RN [address] [place] [address] 09/06/2024 8:30 AM EST Office Visit [facility] [address] [place] [address] Joyce Tapia MD [address] [place] [address] documented as of this encounter Visit Diagnoses Diagnosis Smoker Tobacco use disorder documented in this encounter Care Teams Procedures Rn Relationship Specialty Start Date End Date Joyce Tapia MD [address] [place] [id number] PCP - General Family Medicine 06/19/12 documented as of this encounter
--- OUTSIDE RECORDS SUMMARY | 2024-08-01 10:19 | XMS_ITS | Encounter Summary ---
Author Organization [facility] Address [address] [facility] 7[address] [place] [address] Care Team Providers Care Freight Car Cleaner Name Role Phone Joyce Tapia MD Primary Care Provider [phone] Reason for Visit * Reason Comments Med Refill Encounter Details Date Type Department Care Team (Late st Contact Info) Description 10/24/2023 Refill [facility] MED[facility]INE [address] [place], [place] [phone] Joyce Tapia MD 505 [place] [address] Status post surgical removal of nail matrix [...] Description 08/09/2024 10:30 AM EST Clinical Support [facility] [address] [place] [address] Katherine Casper RN 505 [place], [place] [phone] 09/06/2024 8:30 AM EST Office Visit [facility] [address] [place] [address] Joyce Tapia MD [address] [place] [address] documented as of this encounter Visit Diagnoses Diagnosis Status post surgical removal of nail matrix of toe of left foot documented in this encounter Care Teams Freight Car Cleaner Relationship Specialty Start Date End Date Joyce Tapia MD [address] [place] [phone] PCP - General Family Medicine 06/19/12 documented as of this encounter
--- OUTSIDE RECORDS SUMMARY | 2024-08-01 10:19 | XMS_ITS | Encounter Summary ---
Author Organization [employer] Address [address] [place] [address] Care Team Providers Care Brown Stock Washer Name Role Phone Joyce Tapia MD Primary Care Provider [phone] Reason for Visit * Reason Onset Date Comments Med Refill 03/04/2023 Encounter Details Date Type Department Care Team (Late st Contact Info) Description 03/04/2023 Telephone [facility] MEDICINE [address] [place] [address] Joyce Tapia MD [address] [place], [place] [phone] Med Refill Social History Tobacco Use Types [...] * Telephone Encounter - Gómez Forde - 03/04/2023 9:05 AM EDT Tc from pt requesting a refill oxyCODONE (Roxicodone) 5 MG immediate release tablet documented in this encounter Plan of Treatment Upcoming Encounters Date Type Department Care Team (Late st Contact Info) Description 08/09/2024 10:30 AM EST Clinical Support [facility] MED & [facility]S [address] [place] [address] Katherine Casper, MAKEDA 505 [place] [address] 09/06/2024 8:30 AM EST Office Visit [facility] MED [facility] [address] [place] [address] Joyce Tapia MD 505 [place] [address] documented as of this encounter Visit Diagnoses Not on filedocumented in this encounter Care Teams Brown Stock Washer Relationship Specialty Start Date End Date Joyce Tapia MD [address] [place] [phone] PCP - General Family Medicine 06/19/12 documented as of this encounter
--- OUTSIDE RECORDS SUMMARY | 2024-08-01 10:19 | XMS_ITS | Encounter Summary ---
Author Organization [facility] Address [address] [facility] 7[address] [place] [address] Care Team Providers Care Cargo Vessel Stewardess Name Role Phone Joyce Tapia MD Primary Care Provider Encounter Details Date Type Department Care Team (Latest Contact Info) Description 03/21/2019 Abstract [facility] CONVERSIONS Dental, Provider, DDS Social History Tobacco Use Types Packs/Day Years Used Date Smoking Tobacco: Never Assessed Comments Unknown Sex and Gender Information Value [...] 10:30 AM EST Clinical Support [facility] [address] [place] [address] Katherine Casper RN [address] [place] [address] 09/06/2024 8:30 AM EST Office Visit [facility] [address] [place] [address] Joyce Tapia MD 505 [place] [address] documented as of this encounter Visit Diagnoses Not on filedocumented in this encounter Care Teams Cargo Vessel Stewardess Relationship Specialty Start Date End Date Joyce Tapia MD [address] [place] [address] PCP - General Family Medicine 06/19/12 documented as of this encounter
--- OUTSIDE RECORDS SUMMARY | 2024-08-01 10:19 | XMS_ITS | Clinical Summary ---
Author Organization [facility] Address [address] [place] [address] Care Team Providers Care Director Of Pediatric Rehabilitation Name Role Phone Joyce Tapia MD Primary Care Provider [phone] Allergies Active Allergy Reactions Criticality Noted Date Comments Cephalexin Itching 07/27/2010 Latex 09/20/2022 Penicillins Hives 07/27/2010 Prochlorperazine High 07/27/2010 Other reaction(s): seizure, seizures, seizures Other reaction(s): SEIZURES Sulfa Antibiotics 02/14/2012 Other reaction(s): ERYTHEMA Sulfamethoxazole 07/25/2014 Other reaction(s): Leonidas Kehinde's Syndrome Sulfamethoxazole-Trimethopr im 09/20/2022 Tegaderm Alginate Ag Rope High 08/03/2023 Other Reaction(s): SKIN TEARS Skin Protectants, Misc. High 10/05/2022 Other reaction(s): SKIN TEARS Theophylline Palpitations High 07/27/2010 Other reaction(s): tachycardia Trimethoprim High 07/25/2014 Other reaction(s): Leonidas Kehinde's Syndrome Other Reaction(s): BLISTERS- DELGADO - NERVE ENDINGS IN HAND/ERYTHEMA MULTIFORM Medications * This document contains information received from the source organization and may not represent a complete record from that organization. hydrOXYzine HCl (Atarax) 25 MG tablet take 1-2 tablet by oral route every day at bedtime 022 Active metFORMIN (Glucophage) 500 MG tablet Take 500 mg by mouth. 022 Active Elastic Bandages & Supports (Futuro Therapeutic Stocking) miscIndications :Pigmented purpura (CMS/HCC) To wear daily prior to getting out of bed 1 each 023 Active albuterol 108 (90 Base) MCG/ACT inhalerIndicati ons:Wheezing Inhale 2 puffs every 4 (four) hours if needed for wheezing. 18 g 023 Active albuterol (2.5 MG/3ML) 0.083% nebulizer solutionIndicat ions:Mild intermittent asthma with exacerbation Take 3 mL (2.5 mg) by nebulization every 6 (six) hours if needed for wheezing. 75 mL 2 023 Active pramipexole (Mirapex) 0.5 MG tablet TAKE ONE TABLET THREE TIMES DAILY IN THE MORNING, EVENING AND BEDTIME 90 tablet 11 024 Active sertraline (Zoloft) 100 MG tablet TAKE ONE TABLET EVERY NIGHT AT BEDTIME 30 tablet 6 024 Active triamcinolone (Kenalog) 0.1 % creamIndication s:Pigmented purpura ([facility]) Apply topically if needed in the morning and at bedtime (pain and swelling). 30 g 2 024 Active FeroSul 325 (65 Fe) MG tablet TAKE ONE TABLET EVERY MORNING 90 tablet 1 024 Active varenicline (Chantix) 1 MG tabletIndicatio ns:Smoker TAKE ONE TABLET TWICE DAILY WITH GLASS OF WATER 60 tablet 1 024 Active meclizine (Antivert) 25 MG tablet 1 tab po BID 60 tablet 3 024 Active cyanocobalamin (Vitamin B-12) 1000 MCG tablet TAKE ONE TABLET EVERY MORNING 90 tablet 1 024 Active tiZANidine (Zanaflex) 4 MG tabletIndicatio ns:Muscle spasm TAKE ONE TABLET EVERY EVENING 30 tablet 3 024 Active hydroCHLOROthia zide (Microzide) 12.5 MG capsuleIndicati ons:Type 2 diabetes mellitus without complication, without long-term current use of insulin ([facility]) TAKE ONE CAPSULE EVERY MORNING 90 capsule 1 024 Active lidocaine (Lidoderm) 5 % patchIndication s:Pain Apply 1 patch topically Once per day. Remove & discard patch within 12 hours or as directed by MD. 30 patch 024 2024 Active esomeprazole (NexIUM) [address] capsule Take 1 capsule (20 mg) by mouth before breakfast. Do not open capsule. 30 capsule 2025 Active sucralfate (Carafate) 1 g tablet Take 1 tablet (1 g) by mouth before breakfast, before lunch, before evening meal, and at bedtime. 120 tablet 11 2025 Active zolpidem (Ambien) 5 MG tablet TAKE ONE TABLET AT BEDTIME NEEDED FOR SLEEP 30 tablet Active oxyCODONE (Roxicodone) 5 MG immediate release tabletIndicatio ns:Status post surgical removal of nail matrix of toe of left foot Take 1 tablet (5 mg) by mouth every 6 (six) hours if needed for severe pain. 30 tablet Active azithromycin (Zithromax) 250 MG tablet Take 2 tablet once and then take 1 tablet once a day PO, total 5 days 6 tablet 024 2024 Discontinued zolpidem (Ambien) 5 MG tablet TAKE ONE TABLET AT BEDTIME NEEDED FOR SLEEP 30 tablet 024 2024 Discontinued(R eorder (will not trigger notification to Pharmacy)) oxyCODONE (Roxicodone) 5 MG immediate release tabletIndicatio ns:Status post surgical removal of nail matrix of toe of left foot Take 1 tablet (5 mg) by mouth every 6 (six) hours if needed for severe pain. 30 tablet 024 2024 Discontinued(R eorder (will not trigger notification to Pharmacy)) oxyCODONE (Roxicodone) 5 MG immediate release tabletIndicatio ns:Status post surgical removal of nail matrix of toe of left foot Take 1 tablet (5 mg) by mouth every 6 (six) hours if needed for severe pain. 30 tablet 025 2024 Discontinued(R eorder (will not trigger notification to Pharmacy)) oxyCODONE (Roxicodone) 5 MG immediate release tabletIndicatio ns:Status post surgical removal of nail matrix of toe of left foot Take 1 tablet (5 mg) by mouth every 6 (six) hours if needed for severe pain. Do not start before July 15, 2024. 30 tablet 025 2024 Discontinued(R eorder (will not trigger notification to Pharmacy)) oxyCODONE (Roxicodone) 5 MG immediate release tabletIndicatio ns:Status post surgical removal of nail matrix of toe of left foot Take 1 tablet (5 mg) by mouth every 6 (six) hours if needed for severe pain. 30 tablet 025 2024 Discontinued(R eorder (will not trigger notification to Pharmacy)) Active Problems Problem Noted Date Diagnosed Date Smoker 12/02/2023 Assessment & Plan (12/02/2023 3:26 PM EDT): Smoking cessation counseling done Chantix refill done Cervical lymphadenopathy 12/02/2023 Assessment & Plan (12/02/2023 3:28 PM EDT): US ordered today Nevus 12/02/2023 Assessment & Plan (12/02/2023 3:27 PM EDT): Dermatology referral today Sore throat (viral) 12/02/2023 Assessment & Plan (12/02/2023 3:27 PM EDT): Rest drink plenty of fluids Acetaminophen PRN Upper respiratory tract infection 10/24/2023 Assessment & Plan (10/24/2023 9:05 PM EDT): Negative for COVID and FLU. Begin medications and if symptoms worsen f/u. Relevant medications Azithromycin (Zithromax) 250 MG Tablet Prednisone (Deltasone) 20 MG Tablet Bereavement, uncomplicated 01/03/2023 Assessment & Plan (01/03/2023 2:31 PM EDT): Patient presenting with crying spells, depressed mood, hopelessness, helplessness, frustration, confusion, mild loosening of associations, pressured speech and anhedonia. Patient reports sxs were directly related to recent knowledge her nephew's in a MVA. Patient will potentially benefit from supportive individual therapy in outpatient setting, but indicated that at this time she was not interested in referral. At this time Nayely Grover meets criteria for Visit Diagnoses: Problem List Items Addressed This Visit Other Bereavement, uncomplicated Patient ready to address current needs Patient not interested in further therapy referral. Agreeable to seek supports if needed. Strengths include Strong family and community supports PLAN: 1. Follow up with [facility]: Not recommended for follow-up 2. Behavioral Recommendations a. Nayely will reach out to [facility] and/or [facility] if further supports needed Status post surgical removal of nail matrix of toe of left foot 08/25/2022 Assessment & Plan (08/25/2022 9:42 AM EST): Patient 9 days out of nail removal with matrix destruction, reports significant pain, reports she has a hx of bariatric surgery and is unable to get NSAIDs. Recommended rest, elevation, no signs of infection at this moment, provided with oxycodone/APAP for 5 days. If symptoms not improved will need X ray and visit to the ED Arthropathy 09/28/2011 Candidiasis 09/28/2011 Chest pain 09/28/2011 Diabetes mellitus 09/28/2011 Headache 09/28/2011 Encounters Date Type Department Care Team Description 07/27/2024 Telephone [facility] [address] [place] [address] Joyce Tapia MD Med Refill 07/27/[address] [facility] [address] [place] [address] Emerson Keith MD Status post surgical removal of nail matrix of toe of left foot 07/26/[address] [facility] [address] [place] [address] Joyce Tapia MD Status post surgical removal of nail matrix of toe of left foot 07/25/[address] [facility] [address] [place] [address] Joyce Tapia MD 07/25/[address] [facility] [address] [place] [address] Emerson Keith MD Status post surgical removal of nail matrix of toe of left foot 07/24/2024 Patient Outreach [facility] [address] [place] [address] Joyce Tapia MD Transition Of Care (Tcm) 07/19/2024 Refill [facility] [address] [place] [address] Joyce Tapia MD 07/19/[address] [facility] [address] [place] [address] Joyce Tapia MD Status post surgical removal of nail matrix of toe of left foot 07/18/2024 Orders Only GENERIC EXTERNAL DATA DEPARTMENT Provider, Generic External Data 07/13/2024 Refill [facility] [address] [place] [address] Joyce Tapia MD 07/13/[address] [facility] [address] [place] [address] Amber Palacio MD Smoker 07/13/[address] [facility] [address] [place] [address] Joyce Tapai MD Status post surgical removal of nail matrix of toe of left foot 07/12/2024 Refill [facility] [address] [place] [address] Joyce Taipa MD Status post surgical removal of nail matrix of toe of left foot 07/09/2024 8:30 AM EST Office Visit [facility] [address] [place] [address] Joyce Tapia MD Gastroesophageal reflux disease without esophagitis (Primary Dx); Type 2 diabetes mellitus without complication, without long-term current use of insulin ([facility]); Rectal bleeding 07/09/2024 Refill [facility] [address] [place] [address] Joyce Tapia MD Status post surgical removal of nail matrix of toe of left foot 07/09/2024 Travel 07/08/[address] [facility] [address] [place] [address] Kassi Johnston FNP Status post surgical removal of nail matrix of toe of left foot 07/02/2024 Refill [facility] [address] [place] [address] Kassi Johnston, CRIME SCENE TECHNICIAN Status post surgical removal of nail matrix of toe of left foot 07/02/2024 Telephone [facility] [address] [place] [address] Joyce Tapia MD Med Refill 07/01/[address] [facility] [address] [place] [address] Emerson Keith MD Status post surgical removal of nail matrix of toe of left foot 07/01/2024 Refill [facility] [address] [place] [address] Joyce Tapia MD Pain (Primary Dx) 06/25/2024 Refill [facility] [address] [place] [address] Joyce Tapia MD Status post surgical removal of nail matrix of toe of left foot 06/25/2024 Refill [facility] [address] [place] [address] Joyce Tapia MD Status post surgical removal of nail matrix of toe of left foot 06/23/[address] [facility] [address] [place] [address] Joyce Tapia MD Status post surgical removal of nail matrix of toe of left foot 06/18/2024 Refill [facility] [address] [place] [address] Joyce Tapia MD 06/18/2024 Refill [facility] [address] [place] [address] Joyce Tapia MD Status post surgical removal of nail matrix of toe of left foot 06/14/2024 Refill [facility] [address] [place] [address] Joyce Tapia MD Type 2 diabetes mellitus without complication, without long-term current use of insulin ([facility]) 06/11/2024 Refill [facility] [address] [place] [address] Joyce Tapia MD Status post surgical removal of nail matrix of toe of left foot 06/10/2024 Refill [facility] [address] [place] [address] Joyce Tapia MD Muscle spasm 06/06/2024 Travel 06/05/[address] [facility] [address] [place] [address] Joyce Tapia MD Status post surgical removal of nail matrix of toe of left foot 06/05/[address] [facility] [address] [place] [address] Joyce Tapia MD Status post surgical removal of nail matrix of toe of left foot 06/04/2024 8:45 AM EST Office Visit [facility] [address] [place] [address] Joyce Tapia MD Acute bilateral low back pain without sciatica (Primary Dx); Type 2 diabetes mellitus without complication, without long-term current use of insulin ([facility]); Encounter for immunization 06/04/2024 Telephone [facility] [address] [place] [address] Joyce Tapia MD pcp other 06/04/2024 Travel 06/03/2024 Orders Only [facility] External Provider, [facility] 05/29/2024 Telephone [facility] [address] [place] [address] Joyce Tapia MD chart prep 05/28/2024 Travel 05/28/2024 Refill [facility] [address] [place] [address] Joyce Tapia MD Status post surgical removal of nail matrix of toe of left foot 05/28/[address] [facility] [address] [place] [address] Joyce Tapia MD Med Refill 05/28/2024 Refill [facility] [address] [place] [address] Joyce Tapia MD Status post surgical removal of nail matrix of toe of left foot 05/24/[address] [facility] [address] [place] [address] Joyce Tapia MD ER Follow-up 05/24/2024 Telephone [facility] [address] [facility] [place] [address] Joyce Tapia MD No Show 05/23/2024 Telephone [facility] [address] [facility] [place] [address] Joyce Tapia MD Chart Prep 05/22/2024 Patient Outreach [facility] [address] [place] [address] Joyce Tapia MD 05/22/2024 Refill [facility] [address] [facility] [place] [address] Joyce Tapia MD 05/22/2024 Orders Only GENERIC EXTERNAL DATA DEPARTMENT Provider, Generic External Data 05/21/2024 10:30 AM EST Telemedicine [facility] [address] [place] [address] Katherine Casper, hall porter bilateral low back pain with left-sided sciatica 05/21/2024 Refill [facility] [address] [facility] [place] [address] Joyce Tapia MD 05/21/2024 Orders Only GENERIC EXTERNAL DATA DEPARTMENT Provider, Generic External Data 05/21/2024 Refill [facility] [address] [place] [address] Katherine Casper, RN Status post surgical removal of nail matrix of toe of left foot 05/21/2024 Travel 05/16/2024 Refill [facility] [address] [facility] [place] [address] Joyce Tapia MD 05/15/2024 Telephone [facility] [address] [place] [address] Joyce Tapia MD Med Refill 05/15/2024 Refill [facility] [address] [place] [address] Joyce Tapia MD Status post surgical removal of nail matrix of toe of left foot 05/10/2024 Orders Only GENERIC EXTERNAL DATA DEPARTMENT Provider, Generic External Data 05/09/2024 Orders Only [facility] [address] [place] [address] Joyce Tapia MD 05/08/[address] [facility] [address] [place] [address] Joyce Tapia MD 05/08/[address] [address] Joyce Tapia MD Med Refill 05/08/2024 Refill [facility] [address] [place] [address] Joyce Tapia MD Status post surgical removal of nail matrix of toe of left foot 05/08/[address] [facility] [address] [place] [address] Joyce Tapia MD Muscle spasm 05/02/2024 Refill [facility] [address] [place] [address] Joyce Tapia MD Status post surgical removal of nail matrix of toe of left foot 05/02/[address] [address] Joyce Tapia MD Med Refill 05/01/2024 9:00 AM EDT Telemedicine [facility] [address] [place] [address] Joyce Tapia MD Type 2 diabetes mellitus without complication, without long-term current use of insulin ([facility]) (Primary Dx); Chronic bilateral low back pain without sciatica 05/01/2024 Travel from Last 3 Months Immunizations Name Administration Dates Next Due Influenza injectable quadriv alent IIV4 with preservative 05/01/2019,04/28/2018,04/19/2016,03/28 Influenza injectable quadriv alent preservative free 03/22/2023,04/02/2020 Influenza, IIV3, injectable 03/28/2014 Influenza, Split (incl. corrine fied surface antigen) 04/10/2012 Influenza, seasonal, injecta ble, preservative free 06/04/2024 Moderna Covid-19 Vaccine 12+ 10/16/2020,09/19/19 21 Pneumococcal Polysaccharide PPSV23 11/21/2016, Rabies - IM Fibroblast Culture 03/30/2024 Rabies, IM Diploid Cell Culture 03/23/2024,03/19,03/16/2024 Td (adult), unspecified 05/17/2001 Tdap 03/16/2024,04/28/2018 Zoster, Recombinant 11/18/2022,09/02/2022 Social History Tobacco Use Types Packs/Day Years [...] Orientation Straight 05/03/2022 10 :18 AM EDT Last Filed Vital Signs Vital Sign Reading Time Taken Comments Blood Pressure 118/69 07/09/2024 8:39 AM EST Pulse 68 07/09/2024 8:39 AM EST Temperature 36.1 ??C (97 ??F) 07/09/2024 8:39 AM EST Respiratory Rate 18 07/09/2024 8:39 AM EST Oxygen Saturation 94% 03/13/2024 9:05 AM EDT Inhaled Oxygen Concentration - - Weight 69.9 kg (154 lb) 07/09/2024 8:39 AM EST Height 160 cm (5' 3 ) 07/09/2024 8:39 AM EST Body Mass Index 27.28 07/09/2024 8:39 AM EST Plan of Treatment Upcoming Encounters Date Type Department Care Team (Late st Contact Info) Description 08/09/2024 10:30 AM EST Clinical Support [facility] [address] [place] [address] Katherine Casper, MAKEDA [address] [place] [address] 09/06/2024 8:30 AM EST Office Visit [facility] [address] [place] [address] Joyce Tapia MD [address] [place] [address] Health Maintenance Due Date Last Done Comments CT Colonography 1960 Depression Screening 1960 FIT DNA/Cologuard 1962 FIT 1960 FOBT 1960 HIV Screening 1960 Sigmoidoscopy 1960 Eye Exam 1972 Alcohol/Substance Use Screening 1974 Hepatitis C Screening 1980 Pneumococcal Vaccine: Pediatrics (0 to 5 Years) and At-Risk Patients (6 to 49) Years) (2 of 2 - PCV) 11/21/2017 11/21/2016, 06/13/2007 Diabetes: Urine Protein Screening 08/20/2022 08/20/2021 RSV Patients and Patients Aged 60 years or older (1 - Risk 60-74 years 1-dose series) 2022 COVID-19 Vaccine ( season) 2024 10/16/2020, 09/18/2020 Pap Smear 03/31/2024 03/31/2021 Mammogram 05/28/2024 05/28/2023, 08/04, 08/16/2020, Additional history exists SDOH Screening 01/03/2025 01/04/2024 Diabetes: Hemoglobin A1C 01/06/2025 025, 01/13/2024, 06/03/2023, Additional history exists Colonoscopy 02/20/2025 02/20/2015 Colorectal Cancer Screening 02/20/2025 Diabetes: Foot Exam 07/09/2025 07/09/2024, 07/09/2024, 07/09/2024, Additional history exists Lipid Panel 07/09/2025 07/09/2024 Tobacco Screening 07/09/2025 07/09/2024 Cervical Cancer Screening 03/31/2026 HPV/Cotest 03/31/2026 03/31/2021 DTaP/Tdap/Td Vaccines (3 - Td or Tdap) 03/16/2034 03/16/2024, 04/28/2018, 05/17/2001 Zoster Vaccines Completed 11/18/2022, 09/02/2022 Influenza Vaccine Completed 06/04/2024, , 04/05/2022, Additional history exists HIB Vaccines Aged Out No longer eligi ble based on patient's age to complete this topic HPV Vaccines Aged Out No longer eligi ble based on patient's age to complete this topic Hepatitis A Vaccines Aged Out No long er eligible based on patient's age to complete this topic Hepatitis B Vaccines Aged Out No long er eligible based on patient's age to complete this topic IPV Vaccines Aged Out No longer eligi ble based on patient's age to complete this topic Meningococcal Vaccine Aged Out No ildefonso manisha eligible based on patient's age to complete this topic RSV under 20 months Aged Out No longe r eligible based on patient's age to complete this topic Rotavirus Vaccines Aged Out No longer eligible based on patient's age to complete this topic Procedures Procedure Name Priority Date/Time Associated Diagnosis Comments XR HAND 3+ VIEWS LEFT Routine 07/21/2024 11:57 PM EST HEMATOXYLIN AND EOSIN STAIN Routine 07/18/2024 8:13 AM EST GLUCOSE, WHOLE BLOOD Routine 07/18/2024 7:34 AM EST HEMOGLOBIN A1C Routine 07/09/2024 8:59 AM EST Type 2 diabetes mellitus without complication, without long-term current use of insulin ([facility]) HEPATIC FUNCTION PANEL Routine 8:59 AM EST Type 2 diabetes mellitus [...] complication, without long-term current use of insulin ([facility]) POCT GLUCOSE Routine 06/04/2024 9:10 AM EST Type 2 diabetes mellitus without complication, without long-term current use of insulin ([facility]) XR LUMBAR SPINE 2-3 VIEWS Routine 06/03/2024 11:15 AM EST COMPREHENSIVE METABOLIC PANEL Routine 05/22/2024 5:33 AM EST URINALYSIS, COMPLETE, WITH REFLEX TO CULTURE Routine 05/22/2024 5:33 AM EST CBC WITH AUTO DIFFERENTIAL Routine 05/22/2024 5:33 AM EST XR PELVIS 1-2 VIEWS Routine 05/21/2024 1 0:58 AM EST COMPREHENSIVE METABOLIC PANEL Routine 05/21/2024 10:43 AM EST CBC WITH AUTO DIFFERENTIAL Routine 05/21/2024 10:43 AM EST URINALYSIS WITH REFLEX MICROSCOPIC Routine 05/10/2024 9:[address] ABDOMEN PELVIS WO CONTRAST Routine 05/10/2024 7:03 PM EST LIPASE Routine 05/10/2024 6:38 PM EST MAGNESIUM Routine 05/10/2024 6:38 PM EST BASIC METABOLIC PANEL Routine 05/10/2024 6:38 PM EST HEPATIC FUNCTION PANEL Routine 6:38 PM EST CBC WITH AUTO DIFFERENTIAL Routine 05/10/2024 6:38 PM EST BI MAMMOGRAM SCREENING TOMOSYNTHESIS BILATERAL Routine 05/28/2023 8:58 AM EST ZZZ HISTORICAL MICROALBUMIN/CREATININ E RATIO, RANDOM URINE Routine 08/20/2021 8:20 AM EST HPV MRNA E6/E7 Routine 03/31/2021 9:06 AM EDT THINPREP PAP Routine 03/31/2021 9:06 AM EDT HM COLONOSCOPY Routine 02/20/2015 from Last 3 Months or Most Recently Relevant to Health Maintenance Results * XR Hand 3+ Views Left (07/21/2024 11:57 PM EST) Anatomical Region Laterality Modality Upper Extremities, Hand Left Radiogra phic Imaging 07/21/2024 11:5 7 PM EST Narrative 07/21/2024 11:59 PM EST ? [facility] ?[address] ?[place] [address] ?XRay Report ? Signed ? Patient: Grover,Nayely ?MR#: [id number] ?? 541 ? : 1960 ?Acct:[id number] ? Age/Sex: 63 / F ?ADM Date: 01/18/25 ? Loc: HO.ED ? Attending Dr: ? Ordering Physician: Janel Pitts MD ?? Date of Service: 07/21/24 ?? Procedure(s): XR hand LT min 3V ?? Accession Number(s): [id number] ? cc: Joyce Tapia MD; Janel Pitts [...] by Lou Zee MD in OV> ? 07/21/248 ? DD/ 56 ? TD/TT: 07/21/242356 ? Dress Shoe Inspector: ? Procedure Note Javed, Image - 07/22/[address] [address] XRay Report Signed Patient: Nayely GroverMR#: [id number] 541 : 1960Acct:[id number] Age/Sex: 63 / FADM Date: 07/21/24 Loc: HO.ED Attending Dr: Ordering Physician: Janel Pitts MD Date of Service: 07/21/24 Procedure(s): XR hand LT min 3V Accession Number(s): [id number] cc: Joyce Tapia MD; Janel Pitts MD [...] signed by Lou Zee MD in OV> 07/21/242357 DD/ 56 TD/TT: 07/21/242356 Dress Shoe Inspector: [facility] External Provider IMG XR PROCEDURES Edited Result - Final * Hematoxylin and Eosin Stain (07/18/2024 8:13 AM EST) 07/18/2024 8:13 AM EST 07/18/2024 9:01 AM EST Narrative [facility] [facility] - 07/20/2024 9:46 AM EST ----- ------- Name: Nayely Grover ?Age/Sex: 63/F ? : 1960 Unit#: [id number] ?? Attend Dr: Donald Pa MD ?Re07/18/24 ?Status: DEP SDC ? Location: HO.SSS ?Disch: ? ----- ------- SPEC : [id number] ?RECD: 07/18/24-900 ? STATUS: ??SOUT ? REQ NUM: [id number] ? JOSE: 07/18/24 ? SUBM DR: Donald [...] in toto in a cassette labeled C. ??DEE DEE Special studies ordered and performed: Immunostain for H. pylori on A; AB/PAS stains on A ? CONTINUED ON NEXT PAGE ----- ------- Name: Nayely Grover ?Age/Sex: 63/F ? : 1960 Unit#: [id number] ?? Attend Dr: Donald Pa MD ?Re07/18/24 ?Status: DEP SDC ? Location: HO.SSS ?Disch: ? ----- ------- SPEC : [id number] ?RECD: 07/18/24-900 ? STATUS: ??SOUT ? REQ NUM: [id number] ? JOSE: 07/18/24 ? SUBM DR: Donald Pa MD ? ENTERED: ??07/18/24 ?SP TYPE: Surgical ? OTHR DR: Joyce aTpia MD ? ORDERED: ??HE Stain/9, Gross Micro L4/3, IHC, Special st. 2, H. pylori, AB/PAS ? Copies To: ?? Joyce Tapia MD ?? [facility] ?? [address] ?? [place] [address] ?? [phone] ?? Donald Pa MD ?? [facility] ?? [address] ?? [place] [address] ?? [phone] ----- ------- Signed (signature on file) Ayan Romero MD 07/20/2446 ? ----- ------- ? END OF REPORT ? us Generic External Data Provider LAB BLOOD ORDERAB LES Final Result Performing Organization Address [facility]/ZIP Co de Phone Number [facility] [address] [place] [phone] * (ABNORMAL) Glucose, Whole Blood (07/18/2024 7:34 AM EST) Glucose, Whole Blood 141(H) 60 - 115 mg/dL [facility] Comment:METER #: [id number] 07/18/2024 7:34 AM EST 07/18/2024 7:38 AM EST us Generic External Data Provider LAB BLOOD ORDERAB LES Final Result Performing Organization Address [facility] de Phone Number [facility] [address] [place] [phone] * (ABNORMAL) Hemoglobin A1c (07/09/2024 8:59 AM EST) Hemoglobin A1c 6.5(H) <6.0 % [facility] Comment:Hemoglobin A1C Refer ence Range Adults: 4.8 - 6.0 % Non diabetic: < 6.0 % Goal: < 7.0 %Additional Action Suggested: > 8.0 %Note: Hemoglobin A1c results are invalid for patients with abnormal amounts of HbF. Blood transfusions may impact the HbA1c concentration in the patient sample. Estimated Average Glucose 140 mg/dL [facility] Comment:eAG = Estimated ave rage glucose which is %A1C expressed asaverage glucose, using the formula of the P9B-KkvbauqDlyzzwe Glucose study (ADAG), Diabetes Care, Vol.31,#8,2007 Blood Venous blood specimen / Unknown 07/09/2024 8:59 AM EST 07/09/2024 2:20 PM EST us Joyce Tapia MD LAB BLOOD ORDERABLES Final Resul t Performing Organization Address [facility] Co de Phone Number [facility] [address] [place] [phone] * Hepatic Function Panel (07/09/2024 8:59 AM EST) Only the most recent of2 resultswithin the time period is included. Bilirubin, Total 0.4 0.0 - 1.0 mg/dL [facility] Bilirubin, Direct 0.2 0.0 - 0.5 mg/dL [facility] Aspartate Amino Transferase 24 5 - 31 U/L [facility] Alanine Aminotransferase 23 0 - 31 U/L [facility] Total Protein 6.5 6.5 - 8.0 g/dL [facility] Albumin Level 3.8 3.5 - 5.0 g/dL [facility] Alkaline Phosphatase 79 39 - 117 U/L [facility] Blood Venous blood specimen / Unknown 07/09/2024 8:59 AM EST 07/09/2024 2:20 PM EST us Joyce Tapia MD LAB BLOOD ORDERABLES Final Resul t [facility] [address] [place] [address] [phone] * (ABNORMAL) Lipid Panel, Standard (07/09/2024 8:59 AM EST) Triglycerides 86 <150 mg/dL [facility] Comment:Desirable Triglyceri de: less than 150 mg/dLBorderline High Triglyceride 150-199 mg/dLHigh Triglyceride: 200-499 mg/dLVery High Triglyceride: greater than or equal to 5OO mg/dL Cholesterol 181 <200 mg/dL [facility] Comment:Desirable Cholestero l: less than 200 mg/dLBorderline High Cholesterol: 200-239 mg/dLHigh Cholesterol: greater than 239 mg/dL LDL Cholesterol Calculated 100(H) <100 mg/dL [facility] Comment:Desirable LDL: less than 100 mg/dLNear Optimal/Above Optimal LDL: 110- 129 mg/dLBorderline High LDL: 130-159 mg/dLHigh LDL: 160-189 mg/dLVery High LDL: greater than or equal to 190 mg/dL HDL Cholesterol 64 >40 mg/dL [facility] Comment:Desirable HDL: great er than 40 mg/dL Note: This HDL assay may give artificially low results in patients with liver disease. Blood Venous blood specimen / Unknown 07/09/2024 8:59 AM EST 07/09/2024 2:20 PM EST Joyce Tapia MD LAB BLOOD ORDERABLES Final Resul t Performing Organization Address [facility] Co de Phone Number [facility] [address] [place] [phone] * (ABNORMAL) Basic Metabolic Panel (07/09/2024 8:59 AM EST) Only the most recent of2 resultswithin the time period is included. Sodium 142 135 - 145 mmol/L [facility] Potassium 3.7 3.3 - 5.1 mmol/L [facility] Chloride 108 96 - 108 mmol/L [facility] Carbon Dioxide 27 22 - 29 mmol/L [facility] Anion Gap 11(L) 12 - 20 [facility] Urea Nitrogen (BUN) 14 9 - 16 mg/dL [facility] Creatinine, Serum 0.73 0.5 - 1.4 mg/dL [facility] Estimated Glomerular Filt Rate >60 [facility] Comment:Chronic Kidney Disea se: Estimated GFR < 60 mL/min/[id number] Kidney Disease: Estimated GFR < 15 mL/min/1.73m2 Glucose 142(H) 60 - 115 mg/dL [facility] Calcium 8.8 8.4 - 10.2 mg/dL [facility] Blood Venous blood specimen / Unknown 07/09/2024 8:59 AM EST 07/09/2024 2:20 PM EST Joyce Tapia MD LAB BLOOD ORDERABLES Final Resul t Performing Organization Address [facility] Co de Phone Number [facility] [address] [place] [phone] * POCT Glucose (07/09/2024 8:41 AM EST) Only the most recent of2 resultswithin the time period is included. Glucose Blood, POC 118 60 - 200 mg/dL QC Media Lot # [id number] Lot# Expiration Date [id number] Blood Capillary blood specimen / Unknown 07/09/2024 8:41 AM EST us Joyce Tapia MD POINT OF CARE TEST ENTER/EDIT OR DERABLES Final Result * XR Lumbar Spine 2-3 Views (06/03/2024 11:15 AM EST) Anatomical Region Laterality Modality Spine, L-spine Radiographic Yovana ging 06/03/2024 11:1 5 AM EST Narrative 06/03/2024 12:22 PM EST ? [facility] ?[address] ?[place] [address] ?XRay Report ? Signed ? Patient: Grover,Nayely ?MR#: [id number] ?? 541 ? : 1960 ?Acct:[id number] ? Age/Sex: 63 / F ?ADM Date: 06/03/24 ? Loc: HO.ED ? Attending Dr: ? Ordering Physician: Generic ED Physician ?? Date of Service: 06/03/24 ?? Procedure(s): XR lumbar spine 2-3V ?? Accession Number(s): [id number] ? cc: Generic ED Physician; Joyce Tapia MD ? EXAMINATION: ?? XR LUMBOSACRAL SPINE ? CLINICAL INFORMATION: ?? pain ? COMPARISON: ?? MRI lumbar spine 12/29/2023 ? TECHNIQUE: ?? Three views of the lumbosacral spine. ? FINDINGS: ?? The lumbar vertebral bodies demonstrate normal height. Overall sagittal ?? alignment appears maintained. Minimal lumbar spondylosis with marginal ?? osteophytes, endplate degenerative changes and intervertebral disc ?? space narrowing most prominent at L3-L4 through L5-S1. Degenerative ?? facet arthropathy most prominent at L4-L5 and L5-S1. The lateral ?? sacroiliac joints are intact. Surgical clips projecting over the ?? abdomen and pelvis with sutures in the left upper quadrant. ? XR/XR lumbar spine 2-3V ?? IMPRESSION: ?? No radiographic evidence of acute abnormality involving the lumbar ?? spine. Multilevel lumbar spondylosis as detailed. ? Electronically signed by: ??Jer Engel MD ??06/03/2024 12:20 PM EST ?? RP ? Dictated By: ?Maren,Ejr ? Signed By: ?<Electronically signed by Jer Engel in OV> ?06/03/24 1220 ? DD/ 1115 ? TD/TT: 06/03/24 1123 ? Dress Shoe Inspector: ? Procedure Note Donno, Image - 06/03/2024 [place] [address] XRay Report Signed Patient: Nayely GroverMR#: [id number] 541 : 1960Acct:[id number] Age/Sex: 63 / FADM Date: 06/03/24 Loc: HO.ED Attending Dr: Ordering Physician: Generic ED Physician Date of Service: 06/03/24 Procedure(s): XR lumbar spine 2-3V Accession Number(s): [id number] cc: Generic ED Physician; Joyce Tapia MD EXAMINATION: XR LUMBOSACRAL SPINE CLINICAL INFORMATION: pain COMPARISON: MRI lumbar spine 12/29/2023 TECHNIQUE: Three views of the lumbosacral spine. FINDINGS: The lumbar vertebral bodies demonstrate normal height. Overall sagittal alignment appears maintained. Minimal lumbar spondylosis with marginal osteophytes, endplate degenerative changes and intervertebral disc space narrowing most prominent at L3-L4 through L5-S1. Degenerative facet arthropathy most prominent at L4-L5 and L5-S1. The lateral sacroiliac joints are intact. Surgical clips projecting over the abdomen and pelvis with sutures in the left upper quadrant. XR/XR lumbar spine 2-3V IMPRESSION: No radiographic evidence of acute abnormality involving the lumbar spine. Multilevel lumbar spondylosis as detailed. Electronically signed by: Jer Engel MD 06/03/2024 12:20 PM [facility] [place] [place] Dictated By: Jer Engel Signed By: <Electronically signed by Jer Engel in OV> 06/03/24 1220 DD/ 1115 TD/TT: 06/03/24 1123 Dress Shoe Inspector: [facility] External Provider IMG XR PROCEDURES Edited Result - Final * (ABNORMAL) Urinalysis, Complete, with Reflex to Culture (05/22/2024 5:33 AM EST) Color Urine Dark Yellow [facility] Appearance Urine Clear [facility] PH 5.5 5.0 - 9.0 [facility] Glucose Urine UA Negative Negative mg/dL [facility] Urine Blood Negative Negative [facility] Specific [place] - Urine >=1.030(H) 1.005 - 1.025 [facility] Urine Protein Negative Neg-Trace mg/dL [facility] Urine Ketones Negative Negative mg/dL [facility] Nitrite Urine Negative Negative [facility] Leukocyte Esterase Urine Negative Negative [facility] RBC Urine 0-2 0 - 2 /HPF [facility] Urine WBC 0-5 0 - 5 /HPF [facility] Urine Squamous Epithelial Cell 0-2 0 - 2 /HPF [facility] Urine Bacteria None Seen None Seen [facility] Hyaline Casts, Urine 0-2 0 - 2 /LPF [facility] 05/22/2024 5:33 AM EST 05/22/2024 5:47 AM EST Narrative [facility] - 05/22/2024 5:54 AM EST [id number], Clean Catch Generic External Data Provider LAB URINE ORDERAB LES Final Result [facility] [address] [place] [phone] * CBC auto differential (05/22/2024 5:33 AM EST) Only the most recent of3 resultswithin the time period is included. White Blood Count 7.2 4.8 - 10.8 X10*3/uL [facility] Red Blood Count 4.25 4.20 - 5.50 X10*6/uL [facility] Hemoglobin 12.8 12.0 - 16.0 g/dl [facility] Hematocrit 37.8 37.0 - 47.0 % [facility] Mean Corpuscular Volume 88.9 80.0 - 98.0 fL [facility] Mean Corpuscular Hemoglobin 30.1 27.0 - 33.0 pg [facility] Mean Corpuscular HGB Conc 33.9 31.0 - 35.0 g/dl [facility] Red Cell Distribution Width 12.8 11.0 - 16.0 % [facility] Platelet Count 182 160 - 400 X10*3/uL [facility] Mean Platelet Volume 10.1 9.4 - 12.3 fL [facility] Neutrophils Percent Auto 54.4 45 - 73 % [facility] Imm Gran Pct Auto 0.1 0.0 - 0.4 % [facility] Lymphocytes Percent Auto 35.8 20 - 40 % [facility] Monocytes Percent Auto 6.1 2 - 11 % [facility] Eosinophils Percent Auto 3.3 0 - 4 % [facility] Basophils Percent Auto 0.3 0 - 2 % [facility] NRBC Pct Auto 0.0 0.0 - 0.2 /100WBC [facility] Neutrophils Absolute Auto 3.9 2.0 - 8.3 x10*3/uL [facility] Imm Gran Abs Auto 0.01 0.00 - 0.03 X10*3/uL [facility] Lymphocytes Absolute Auto 2.6 1.2 - 4.9 X10*3/uL [facility] Monocytes Absolute Auto 0.4 0.1 - 1.2 X10*3/uL [facility] Eosinophils Absolute Auto 0.2 0.0 - 0.4 X10*3/uL [facility] Basophils Absolute Auto 0.0 0.0 - 0.2 X10*3/uL [facility] NRBC Abs Auto 0.000 0.0 - 0.012 X10*3/uL [facility] 05/22/2024 5:33 AM EST 05/22/2024 5:47 AM EST us Generic External Data Provider LAB BLOOD ORDERAB LES Final Result [facility] [address] [place], [place] [phone] * (ABNORMAL) Comprehensive Metabolic Panel (05/22/2024 5:33 AM EST) Only the most recent of2 resultswithin the time period is included. Sodium 140 135 - 145 mmol/L [facility] Potassium 3.6 3.3 - 5.1 mmol/L [facility] Chloride 106 96 - 108 mmol/L [facility] Carbon Dioxide 27 22 - 29 mmol/L [facility] Anion Gap 11(L) 12 - 20 [facility] Urea Nitrogen (BUN) 17(H) 9 - 16 mg/dL [facility] Creatinine, Serum 0.78 0.5 - 1.4 mg/dL [facility] Creatinine Clr Calc Pharmacy 73.6 [facility] Comment:Provided height and weight: 170.18 cm,70.4 kg.eGFR (calculated from the MDRD study equation) and eCrCl(calculated from the Cockcroft-Gault equation) are based ondifferent parameters and may not yield comparable results.If eCrCl result is absurd, please check patient'sheight/weight. Estimated Glomerular Filt Rate >60 [facility] Comment:Chronic Kidney Disea se: Estimated GFR < 60 mL/min/1.04c6Ohxgvd Kidney Disease: Estimated GFR < 15 mL/min/1.73m2 Glucose 204(H) 60 - 115 mg/dL [facility] Calcium 8.4 8.4 - 10.2 mg/dL [facility] Bilirubin, Total 0.3 0.0 - 1.0 mg/dL [facility] Aspartate Amino Transferase 16 5 - 31 U/L [facility] Alanine Aminotransferase 21 0 - 31 U/L [facility] Total Protein 6.2(L) 6.5 - 8.0 g/dL [facility] Albumin Level 3.6 3.5 - 5.0 g/dL [facility] Alkaline Phosphatase 76 39 - 117 U/L [facility] 05/22/2024 5:33 AM EST 05/22/2024 5:47 AM EST us Generic External Data Provider LAB BLOOD ORDERAB LES Final Result [facility] [address] [place] [phone] * XR Pelvis 1-2 Views (05/21/2024 10:58 AM EST) Anatomical Region Laterality Modality Body, Pelvis Radiographic Yovana ging 05/21/2024 10:5 8 AM EST Narrative 07/17/2024 9:08 AM EST ? [facility] ?[address] ?[place] [address] ?XRay Report ? Signed ? Patient: Nayely Grover ?MR#: [id number] ?? 541 ? : 1960 ?Acct:[id number] ? Age/Sex: 63 / F ?ADM Date: 05/21/24 ? Loc: HO.XRAY ? Attending Dr: Dex Quintana MD ? Ordering Physician: Dex Quintana MD ?? Date of Service: 05/21/24 ?? Procedure(s): XR pelvis 1-2V ?? Accession Number(s): [id number] ? cc: Dex Quintana MD; Joyce Tapia MD ? EXAMINATION: ?? XR PELVIS ? CLINICAL INFORMATION: ?? Pelvic and perineal pain R10.2. ? COMPARISON: ?? CT Abdomen pelvis without IV contrast 05/10/2024 ? TECHNIQUE: ?? AP and lateral views of the pelvis. ? FINDINGS: ?? No fracture. Hip joint spaces are maintained. Alignment is anatomic. ?? Sacroiliac joints and pubic symphysis are normal. No abnormal soft ?? tissue calcifications. ? Spondylosis of the partially visualized lumbar sacral spine with ?? bilateral facet arthrosis at the L4-L5 and L5-S1 levels unchanged. ? XR/XR pelvis 1-2V ?? IMPRESSION: ?? 1. ??No acute abnormality of the pelvis. ?? 2. ??Spondylosis of the partially visualized lumbar sacral spine. ? Electronically signed by: ??Link Martin MD ??07/17/2024 09:05 AM ?? EST RP ? Dictated By: ?Link Martin MD ? Signed By: ?<Electronically signed by Link Martin MD in OV> ?07/17/24904 ? DD/ 1058 ? TD/TT: 05/21/24 1058 ? Dress Shoe Inspector: WG ? Procedure Note Varinderno, Image - 07/17/2024 [place] [address] XRay Report Signed Patient: Nayely GroverMR#: [id number] 541 : 1960Acct:[id number] Age/Sex: 63 / FADM Date: 05/21/24 Loc: [facility] Attending Dr: Dex Quintana MD Ordering Physician: Dex Quintana MD Date of Service: 05/21/24 Procedure(s): XR pelvis 1-2V Accession Number(s): [id number] cc: Dex Quintana MD; Joyce Tapia MD EXAMINATION: XR PELVIS CLINICAL INFORMATION: Pelvic and perineal pain R10.2. COMPARISON: CT Abdomen pelvis without IV contrast 05/10/2024 TECHNIQUE: AP and lateral views of the pelvis. FINDINGS: No fracture. Hip joint spaces are maintained. Alignment is anatomic. Sacroiliac joints and pubic symphysis are normal. No abnormal soft tissue calcifications. Spondylosis of the partially visualized lumbar sacral spine with bilateral facet arthrosis at the L4-L5 and L5-S1 levels unchanged. XR/XR pelvis 1-2V IMPRESSION: 1. No acute abnormality of the pelvis. 2. Spondylosis of the partially visualized lumbar sacral spine. Electronically signed by: Link Martin MD 07/17/2024 09:05 AM EST Dictated By: Link Martin MD Signed By: <Electronically signed by Link Martin MD inOV> 07/17/24 0905 DD/ 1058 TD/TT: 05/21/24 1058 Dress Shoe Inspector: TAE [facility] External Provider IMG XR PROCEDURES Final Result * (ABNORMAL) Urinalysis w/reflex microscopic (05/10/2024 9:52 PM EST) Color Urine Yellow [facility] Appearance Urine Clear [facility] PH 6.5 5.0 - 9.0 [facility] Glucose Urine UA 100(A) Negative mg/dL [facility] Urine Blood Negative Negative [facility] Specific [place] - Urine 1.020 1.005 - 1.025 [facility] Urine Protein Negative Neg-Trace mg/dL [facility] Urine Ketones Negative Negative mg/dL [facility] Nitrite Urine Negative Negative [facility] Leukocyte Esterase Urine Negative Negative [facility] 05/10/2024 9:52 PM EST 05/10/2024 10:00 PM EST Narrative [facility] - 05/10/2024 10:09 PM EST [id number], Clean Catch Generic External Data Provider LAB URINE ORDERAB LES Final Result Performing Organization Address [facility]/State/[facility] Co de Phone Number [facility] [address] [place] [phone] * CT Abdomen Pelvis w/o Contrast (05/10/2024 7:03 PM EST) Anatomical Region Laterality Modality Body, Pelvis, Abdomen Computed T omography 05/10/2024 7:03 PM EST Narrative 05/10/2024 10:29 PM EST ? [facility] ?[address] ?[place] [address] ? CT Scan Report ? Signed ? Patient: Grover,Nayely ?MR#: [id number] ?? 541 ? : 1960 ?Acct:[id number] ? Age/Sex: 63 / F ?ADM Date: 05/10/24 ? Loc: HO.ED ? Attending Dr: ? Ordering Physician: Radha Javier ?? Date of Service: 05/10/24 ?? Procedure(s): CT abdomen pelvis wo IV con ?? Accession Number(s): [id number] ? cc: Radha Javier; Joyce Tapia MD ? EXAMINATION: ?? CT ABDOMEN AND PELVIS WITHOUT IV CONTRAST ? CLINICAL INFORMATION: ?? Left flank pain ? COMPARISON: ?? CT abdomen/pelvis December 09, 2023 ? TECHNIQUE: ?? Multiple axial images were obtained from the superior aspect of the ?? liver through the pubic symphysis without intravenous contrast. Images ?? were evaluated on independent dedicated 3-D workstation and 3-D images ?? were reconstructed with concurrent radiologist supervision and ?? subsequently interpreted. Oral contrast was not administered. ? This CT examination was performed using dose optimization techniques as ?? appropriate, variously including the following: ?? *Automated exposure control ?? *Adjustment of mA and/or kV according to patient size (this includes ?? techniques or standardized protocols for targeted exams where dose is ?? matched to indication/reason for exam; i.e. extremities or head) ?? *Use of iterative reconstruction technique ? DLP: ?? 423 mGy-cm ? FINDINGS: ? LUNG BASES: The visualized lung bases are clear. ? CARDIOMEDIASTINUM: The visualized heart is normal in size without ?? pericardial effusion. No ??coronary artery calcification. ? LIVER: Homogeneous in attenuation. Normal in size. ? GALLBLADDER: Noninflamed. ? BILIARY SYSTEM: No intrahepatic or extrahepatic biliary dilation. ? PANCREAS: Homogeneous in attenuation. ? SPLEEN: Normal in size. ? GENITOURINARY: No contour deforming masses. No perinephric fluid ?? collection. No renal calculi. No hydroureteronephrosis. ? ADRENAL GLANDS: Unremarkable. ? REPRODUCTIVE: Uterus absent. No solid adnexal masses. ? GASTROINTESTINAL: Postsurgical changes of gastric bypass. Enteroenteric ?? anastomosis in the left hemiabdomen. No evidence of obstruction. ? APPENDIX: The appendix is seen in its entirety and is unremarkable. ? PERITONEUM: No pneumoperitoneum. No intra-abdominal fluid collection. ? VASCULATURE: No abdominal aortic aneurysm. ? LYMPH NODES: No pathologically enlarged abdominal or pelvic lymph nodes. ? SOFT TISSUES/MUSCULOSKELETAL: Bilateral L4-5 and L5-S1 facet ?? arthropathy. No acute fractures or focal osseous lesions. ? CT/CT abdomen pelvis wo IV con ?? IMPRESSION: ?? No acute pathology of the abdomen or pelvis on this noncontrast study. ?? Post surgical changes of gastric bypass. ? Fleischner guidelines were followed. ? Electronically signed by: ??Yobani Green DO ??05/10/2024 10:26 PM EST RP ? Dictated By: ?Yobani Green ? Signed By: ?<Electronically signed by Yobani Green in OV> ? 05/10/246 ? DD/ 02 ? TD/TT: 05/10/241912 ? Dress Shoe Inspector: ? Procedure Note Javed, Image - 05/10/[address] [place] [address] [address] Scan Report Signed Patient: Nayely GroverMR#: [id number] 541 : 1960Acct:[id number] Age/Sex: 63 / FADM Date: 05/10/24 Loc: HO.ED Attending Dr: Ordering Physician: Radha Javier Date of Service: 05/10/24 Procedure(s): CT abdomen pelvis wo IV con Accession Number(s): [id number] cc: Radha Javier; Joyce Tapia MD EXAMINATION: CT ABDOMEN AND PELVIS WITHOUT IV CONTRAST CLINICAL INFORMATION: Left flank pain COMPARISON: CT abdomen/pelvis December 09, 2023 TECHNIQUE: Multiple axial images were obtained from the superior aspect of the liver through the pubic symphysis without intravenous contrast. Images were evaluated on independent dedicated 3-D workstation and 3-D images were reconstructed with concurrent radiologist supervision and subsequently interpreted. Oral contrast was not administered. This CT examination was performed using dose optimization techniques as appropriate, variously including the following: *Automated exposure control *Adjustment of mA and/or kV according to patient size (this includes techniques or standardized protocols for targeted exams where dose is matched to indication/reason for exam; i.e. extremities or head) *Use of iterative reconstruction technique DLP: 423 mGy-cm FINDINGS: LUNG BASES: The visualized lung bases are clear. CARDIOMEDIASTINUM: The visualized heart is normal in size without pericardial effusion. No coronary artery calcification. LIVER: Homogeneous in attenuation. Normal in size. GALLBLADDER: Noninflamed. BILIARY SYSTEM: No intrahepatic or extrahepatic biliary dilation. PANCREAS: Homogeneous in attenuation. SPLEEN: Normal in size. GENITOURINARY: No contour deforming masses. No perinephric fluid collection. No renal calculi. No hydroureteronephrosis. ADRENAL GLANDS: Unremarkable. REPRODUCTIVE: Uterus absent. No solid adnexal masses. GASTROINTESTINAL: Postsurgical changes of gastric bypass. Enteroenteric anastomosis in the left hemiabdomen. No evidence of obstruction. APPENDIX: The appendix is seen in its entirety and is unremarkable. PERITONEUM: No pneumoperitoneum. No intra-abdominal fluid collection. VASCULATURE: No abdominal aortic aneurysm. LYMPH NODES: No pathologically enlarged abdominal or pelvic lymph nodes. SOFT TISSUES/MUSCULOSKELETAL: Bilateral L4-5 and L5-S1 facet arthropathy. No acute fractures or focal osseous lesions. CT/CT abdomen pelvis wo IV con IMPRESSION: No acute pathology of the abdomen or pelvis on this noncontrast study. Post surgical changes of gastric bypass. Fleischner guidelines were followed. Electronically signed by: Yobani Green DO 05/10/2024 10:26 PM EST Dictated By: Yobani Green Signed By: <Electronically signed by Yobani Green in OV> 05/10/242225 DD/ 02 TD/TT: 05/10/241912 Dress Shoe Inspector: [facility] External Provider IMG CT PROCEDURES Edited Result - Final * Magnesium (05/10/2024 6:38 PM EST) Magnesium 2.0 1.6 - 2.6 mg/dL [facility] 05/10/2024 6:38 PM EST 05/10/2024 6:41 PM EST us Generic External Data Provider LAB BLOOD ORDERAB LES Final Result Performing Organization Address [facility]/ZIP Co de Phone Number [facility] [address] [place] [address] [phone] * Lipase (05/10/2024 6:38 PM EST) Lipase 27 8 - 78 U/L [facility] 05/10/2024 6:38 PM EST 05/10/2024 6:41 PM EST Generic External Data Provider LAB BLOOD ORDERAB LES Final Result Performing Organization Address [facility] Co de Phone Number [facility] [address] [place] [address] [phone] * BI Mammogram Screening Tomosynthesis Bilateral (05/28/2023 8:58 AM EST) Anatomical Region Laterality Modality Breast Bilateral Mammography 05/28/2023 8:58 AM EST Narrative 06/03/2023 8:41 AM EST ? [facility] ? [address] ?[place] [id number] ? Mammography Report ? Signed ? Patient: Grover,Nayely ?MR#: [id number] ?? [id number] ? : 1960 ?Acct:[id number] ? Age/Sex: 62 / F ?ADM Date: 11/25/23 ? Loc: HO.MAMMO ? Attending Dr: Joyce Daniels Willie MD ? Ordering Physician: Joyce Tapia MD ?Results: 1Negati ?? ve ? Date of Service: 05/28/23 ?Follow Up: 1 Year From Orig ?? inal Mammogram ? Procedure(s): MM tomosynthesis screening BI ?? Accession Number(s): [id number] ? cc: Joyce Tapia MD ? EXAMINATION: ?? MM SCREENING DIGITAL BREAST TOMOSYNTHESIS, BILATERAL ? CLINICAL INFORMATION: ? Screening. Asymptomatic. ? COMPARISON: ?? Mammography: This study is compared with prior exams dating back to ?? 2017. ? TECHNIQUE: ?? Digital breast tomosynthesis is performed in both the craniocaudal and ?? mediolateral oblique views along with computer-aided detection (CAD). ?? Synthesized 2D images are generated from the tomosynthesis. ? FINDINGS: ?? There are scattered areas of fibroglandular density (ACR BI-RADS breast ?? composition Category b). ? There are no significant masses, abnormal calcifications, or other ?? abnormalities. ? MM/MM tomosynthesis screening BI ?? IMPRESSION: ?? No mammographic evidence of malignancy. ? ASSESSMENT: ? BI-RADS BI-RADS 1 - Negative ? RECOMMENDATION: ?? Routine annual mammography screening. ? 1 year F/U ? This examination should not preclude the clinical evaluation of a ?? suspicious palpable abnormality. ? This patient's information was entered into a reminder system with a ?? target due date for their next mammogram. ? Dictated By: ?Radha Colon MD ? Signed By: ?<Electronically signed by Radha Colon MD in OV> ? 12// 0837 ? DD/DT: 05/28/ 0858 ? TD/TT: ? Dress Shoe Inspector: ? Procedure Note Javed, Image - 06/03/2023 [facility] [address] [place], [place] [address] Mammography Report Signed Patient: Nayely GroverMR#: [id number] : 1960Acct:[id number] Age/Sex: 62 / FADM Date: 05/28/23 Loc: HO.MAMMO Attending Dr: Joyce Tapia MD Ordering Physician: Joyce Tapia MDResults: 1Negati ve Date of Service: 05/28/23Follow Up: 1 Year From Orig inal Mammogram Procedure(s): MM tomosynthesis screening BI Accession Number(s): [id number] cc: Joyce Tapia MD EXAMINATION: MM SCREENING DIGITAL BREAST TOMOSYNTHESIS, BILATERAL CLINICAL INFORMATION: Screening. Asymptomatic. COMPARISON: Mammography: This study is compared with prior exams dating back to 2017. TECHNIQUE: Digital breast tomosynthesis is performed in both the craniocaudal and mediolateral oblique views along with computer-aided detection (CAD). Synthesized 2D images are generated from the tomosynthesis. FINDINGS: There are scattered areas of fibroglandular density (ACR BI-RADS breast composition Category b). There are no significant masses, abnormal calcifications, or other abnormalities. MM/MM tomosynthesis screening BI IMPRESSION: No mammographic evidence of malignancy. ASSESSMENT: BI-RADS BI-RADS 1 - Negative RECOMMENDATION: Routine annual mammography screening. 1 year F/U This examination should not preclude the clinical evaluation of a suspicious palpable abnormality. This patient's information was entered into a reminder system with a target due date for their next mammogram. Dictated By: Radha Colon MD Signed By: <Electronically signed by Radha Colon MD in OV> 06/03/23 0837 DD/ 0858 TD/TT: Dress Shoe Inspector: us Joyce Tapia MD IMG BI PROCEDURES Final Result * MICROALBUMIN/CREATININE RATIO, RANDOM URINE (08/20/2021 8:20 AM EST) Creatinine Urine 109.98 mg/dL [facility] Microalbum/Creati nine Ratio Ur TNP ug/mg cr [facility] Comment: Unable to calculate albumin/creatinine ratio due to low microalbumin or creatinine result. Microalbumin Urine <5.0 mg/L [facility] 08/20/2021 8:20 AM EST Historical Provider MD HISTORICAL/NON ORDERABLE LABS Final Result Performing Organization Address [facility] Co de Phone Number [facility] [address] [place] [address], * THINPREP PAP (03/31/2021 9:06 AM EDT) Clinical Information: H/O HYST, H/O CERVICAL DYSPLASIA [facility] COMMENT SEE COMMENT [facility] Comment: EXPLANATORY NOTE: ? The Pap is a screening test for cervical cancer. It is ?? not a diagnostic test and is subject to false negative ?? and false positive results. It is most reliable when a ?? satisfactory sample, regularly obtained, is submitted ?? with relevant clinical findings and history, and when ?? the Pap result is evaluated along with historic and ?? current clinical information. ?? Honest John Rocket Crew Member : SEE COMMENT [facility] Comment: JÚNIOR STEVENS(ASCP) CT screening location: [address] ??[address] Interpretation/R esult: Negative for intraepithelial lesion or malignancy. [facility] LMP: NONE GIVEN [facility] Prev. BX: NONE GIVEN [facility] Prev. PAP: 12/2016 NIL/NEG [facility] SOURCE: None given [facility] Statement Of Adequacy: SEE COMMENT [facility] Comment: Satisfactory for evaluation. Endocervical/transformation zone component absent. Age and/or menstrual status not provided 03/31/2021 9:06 AM EDT us Noa De Santiago CNM LAB PATHOLOGY ORDERABLES Final Result Performing Organization Address [facility]/ZIP Co de Phone Number [facility] [address] [place] [address], * HPV mRNA E6/E7 (03/31/2021 9:06 AM EDT) HPV nRNA E6/E7 Not Detected Not Detected [facility] Comment: Methodology: Reinstatement Clerk-Mediated Amplification This assay detects E6/E7 viral messenger RNA (mRNA) from 14 high-risk HPV types (16,18,31,33,35,39,45,51,52,56,58,59,66,68). ? The analytical performance characteristics of this assay have been determined by [employer]. The modifications have not been cleared or approved by the FDA. This assay has been validated pursuant to the CLIA regulations and is used for clinical purposes. ?? For additional information, please refer to http://education.[employer]/faq/VPZ543j3 (This link if provided for information/ educational purposes only.) 03/31/2021 9:06 AM EDT Noa MARINO LAB BLOOD ORDERABLES Patt l Result Performing Organization Address City/State/[facility] Co de Phone Number [facility] [address] * Hm Colonoscopy (02/20/2015) Colonoscopy Normal Normal Narrative Zohra Benavidez - 02/20/2015 Repeat in 10 year Historical Provider HEALTH MAINTENANCE Final Result from Last 3 Months or Most Recently Relevant to Health Maintenance Insurance [facility] Care Teams Director Of Pediatric Rehabilitation Relationship Specialty Start Date End Date Joyce Tapia MD [address] [place] [address] PCP - General Family Medicine 06/19/12
--- OUTSIDE RECORDS SUMMARY | 2024-08-01 10:19 | XMS_ITS | Encounter Summary ---
Author Organization [employer] Address [address] [facility] 7t [place] [address] Care Team Providers Care Basketball Referee Name Role Phone Joyce Tapia MD Primary Care Provider [phone] Reason for Visit * Reason Onset Date Comments Med Refill 10/24/2023 Encounter Details Date Type Department Care Team ([facility] st Contact Info) Description 10/24/2023 Telephone [facility] [address] [place], [place] [phone] Joyce Tapia MD [address] [place] [address] Med Refill Social History Tobacco Use Types [...] encounter Miscellaneous Notes * Telephone Encounter - Madhuri Rahman - 10/24/2023 8:12 AM EDT TC from pt requesting medication refill. Medications needing refill : oxyCODONE (Roxicodone) 5 MG immediate release tablet To be sent to: [facility] [place] - [address] [facility] documented in this encounter Plan of Treatment Upcoming Encounters Date Type Department Care Team (Late st Contact Info) Description 08/09/2024 10:30 AM EST Clinical Support [facility] [address] [place] [address] Katherine Casper, RN [address] [place] [address] 09/06/2024 8:30 AM EST Office Visit [facility] [address] [place] [address] Joyce Tapia MD 505 [place] [address] documented as of this encounter Visit Diagnoses Not on filedocumented in this encounter Care Teams Basketball Referee Relationship Specialty Start Date End Date Joyce Taipa MD [address] [place] [address] PCP - General Family Medicine 06/19/12 documented as of this encounter
--- OUTSIDE RECORDS SUMMARY | 2024-08-01 10:19 | XMS_ITS | Encounter Summary ---
Author Organization [employer] [facility] Address [address] [facility] 7t [place] [address] Care Team Providers Care Professor Of Theatre Name Role Phone Joyce Tapia MD Primary Care Provider [phone] Reason for Visit * Reason Comments Med Refill Encounter Details Date Type Department Care Team (Late st Contact Info) Description 11/04/2023 Refill [facility] [address] [place] [address] Joyce Tapia MD 505 [place] [address] Status post surgical removal of nail matrix [...] Description 08/09/2024 10:30 AM EST Clinical Support [facility] [address] [place] [address] Katherine Casper RN 505 [place], [place] [phone] 09/06/2024 8:30 AM EST Office Visit [facility] [address] [place] [address] Joyce Tapia MD [address] [place] [address] documented as of this encounter Visit Diagnoses Diagnosis Status post surgical removal of nail matrix of toe of left foot documented in this encounter Care Teams Professor Of Theatre Relationship Specialty Start Date End Date Joyce Tapia MD [address] [place] [address] PCP - General Family Medicine 06/19/12 documented as of this encounter
--- OUTSIDE RECORDS SUMMARY | 2024-08-01 10:19 | XMS_ITS | Encounter Summary ---
Author Organization [employer] Address [address] 7[address] [place] [address] Care Team Providers Care Puffer Tender Name Role Phone Joyce Tapia MD Primary Care Provider [phone] Encounter Details Date Type Department Care Team (Late st Contact Info) Description 05/08/2024 Telephone [facility] MEDICINE [address] [place] [address] Joyce Tapia MD [address] [place], [place] [phone] Social History Tobacco Use Types Packs/Day Years [...] encounter Miscellaneous Notes * Telephone Encounter - Comfort Estrada LPN - 05/08/2024 11:03 AM EST Please review request below. * Telephone Encounter - Gómez Forde - 05/08/2024 10:27 AM EST Tc from pt requesting a call back in regards to medication for vertigo, pt stated they were prescribed before. Rider Ticket Worker sees no med's listed for vertigo. Pt does not know name of med. Please contact at [phone] documented in this encounter Plan of Treatment Upcoming Encounters Date Type Department Care Team ([facility] st Contact Info) Description 08/09/2024 10:30 AM EST Clinical Support [facility] [address] [place] [address] Katherine Casper RN 505 [place] [address] 09/06/2024 8:30 AM EST Office Visit [facility] [address] [place] [address] Joyce Tapia MD 505 [place] [address] documented as of this encounter Visit Diagnoses Not on filedocumented in this encounter Care Teams Puffer Tender Relationship Specialty Start Date End Date Joyce Tapia MD [address] [place] [address] PCP - General Family Medicine 06/19/12 documented as of this encounter
--- OUTSIDE RECORDS SUMMARY | 2024-08-01 10:20 | XMS_ITS | Encounter Summary ---
Author Organization [employer] Address [address] [facility] [address] [address] 7t [place] [address] Care Team Providers Care It Consultant Name Role Phone Joyce Tapia MD Primary Care Provider [phone] Reason for Visit * Reason Onset Date Comments Med Refill 10/01/2022 Encounter Details Date Type Department Care Team (Late st Contact Info) Description 10/01/2022 Telephone [facility] MEDICINE 230 [place], [place] [phone] Joyce Tapia MD [address] [place], [place] [phone] Med Refill Social History Tobacco Use Types Packs/Day Years Used Date Smoking Tobacco: Some Days Cigarettes Passive Smoke Exposure: Never Smokeless Tobacco: [...] Orientation Straight 05/03/2022 10 :18 AM EDT COVID-19 Exposure Response Date Recorded In the last 10 days, have yo u been in contact with someone who was confirmed or suspected to have Coronavirus/COVID-19? No / Unsure 12/08/2022 9:36 AM EDT documented as of this encounter Miscellaneous Notes * Telephone Encounter - Gómez Forde - 10/01/2022 3:39 PM EDT Tc from pt requesting a med refill for oxycodone 5 mg documented in this encounter Plan of Treatment Upcoming Encounters Date Type Department Care Team (Late st Contact Info) Description 08/09/2024 10:30 AM EST Clinical Support [facility] [address] [place] [address] Katherine Casper, RN 505 [place] [address] 09/06/2024 8:30 AM EST Office Visit [facility] [address] [place] [address] Joyce Tapia MD 505 [place] [address] documented as of this encounter Visit Diagnoses Not on filedocumented in this encounter Care Teams It Consultant Relationship Specialty Start Date End Date Joyce Tapia MD [address] [place] [address] PCP - General Family Medicine 06/19/12 documented as of this encounter
--- OUTSIDE RECORDS SUMMARY | 2024-08-01 10:20 | XMS_ITS | Encounter Summary ---
Author Organization [employer] [facility] Address [address] [facility] 7t [place] [address] Care Team Providers Care Ekg Manager Name Role Phone Joyce Tapia MD Primary Care Provider [phone] Reason for Visit * Reason Comments Med Refill Encounter Details Date Type Department Care Team (Late st Contact Info) Description 06/07/2023 Refill [facility]S [address] [place], [place] [phone] Ev Lewis, ANP [address] [place] [address] Status post surgical removal of nail matrix [...] AM EST Clinical Support [facility] [address] [place] [address] Katherine Casper, RN 505 [place] [address] 09/06/2024 8:30 AM EST Office Visit [facility] [address] [place] [address] Joyce Tapia MD 505 [place] [address] documented as of this encounter Visit Diagnoses Diagnosis Status post surgical removal of nail matrix of toe of left foot documented in this encounter Care Teams Ekg Manager Relationship Specialty Start Date End Date Joyce Tapia MD [address] [place] [address] PCP - General Family Medicine 06/19/12 documented as of this encounter
--- OUTSIDE RECORDS SUMMARY | 2024-08-01 10:20 | XMS_ITS | Encounter Summary ---
Author Organization [employer] [facility] Address [address] [facility] 7t [place] [address] Care Team Providers Care Director Occupational Name Role Phone Joyce Tapia MD Primary Care Provider [phone] Reason for Visit * Reason Comments Med Refill Encounter Details Date Type Department Care Team (Late st Contact Info) Description 10/03/2023 Refill [facility] [address] [place] [address] Joyce Tapia MD 505 [place] [address] Arthropathy Social History Tobacco Use Types Packs/Day Years [...] Description 08/09/2024 10:30 AM EST Clinical Support [facility] 505 [place] [address] Katherine Casper RN 505 [place] [address] 09/06/2024 8:30 AM EST Office Visit [facility] 505 [place] [address] Joyce Tapia MD 505 [place] [address] documented as of this encounter Visit Diagnoses Diagnosis Arthropathy Unspecified arthropathy, site unspecified documented in this encounter Care Teams Director Occupational Relationship Specialty Start Date End Date Joyce Tapia MD [address] [place] [address] PCP - General Family Medicine 06/19/12 documented as of this encounter
--- OUTSIDE RECORDS SUMMARY | 2024-08-01 10:20 | XMS_ITS | Encounter Summary ---
Author Organization [employer] [facility] Address [address] [facility] 7t [place] [address] Care Team Providers Care Optical Designer Name Role Phone Joyce Tapia MD Primary Care Provider [phone] Reason for Visit * Reason Comments Med Refill Encounter Details Date Type Department Care Team (Late st Contact Info) Description 06/06/2023 Refill [facility] PED[facility] 505 [place], [place] [phone] Ev Lewis, ANP 230 [place] [address] Status post surgical removal of nail matrix [...] 10:30 AM EST Clinical Support [facility] & PEDS 505 [place] [address] Katherine Casper, RN 505 [place] [address] 09/06/2024 8:30 AM EST Office Visit [facility] [address] [place] [address] Joyce Tapia MD 505 [place] [address] documented as of this encounter Visit Diagnoses Diagnosis Status post surgical removal of nail matrix of toe of left foot documented in this encounter Care Teams Optical Designer Relationship Specialty Start Date End Date Joyce Tapia MD [address] [place] [address] PCP - General Family Medicine 06/19/12 documented as of this encounter
--- OUTSIDE RECORDS SUMMARY | 2024-08-01 10:20 | XMS_ITS | Encounter Summary ---
Author Organization [employer] Address [address] [facility] [address] 7t [place] [address] Care Team Providers Care Gas Technician Name Role Phone Joyce Tapia MD Primary Care Provider [phone] Reason for Visit * Reason Onset Date Comments Med Refill 07/13/2024 Encounter Details Date Type Department Care Team (Late st Contact Info) Description 07/13/2024 Refill [facility] [address] [place] [address] Joyce Tapia MD [address] [place] [address] Status post surgical removal of nail matrix [...] encounter Miscellaneous Notes * Telephone Encounter - Valentín Lyons - 07/13/2024 11:40 AM EST TC from pt requesting medication refill. Medications needing refill : oxyCODONE (Roxicodone) 5 MG immediate release tablet To be sent to: [facility]/pharmacy #[id number] [place] - [address] [facility] documented in this encounter Plan of Treatment Upcoming Encounters Date Type Department Care Team (Late st Contact Info) Description 08/09/2024 10:30 AM EST Clinical Support [facility] [address] [place] [address] Katherine Casper RN 505 [place] [address] 09/06/2024 8:30 AM EST Office Visit [facility] 505 [place] [address] Joyce Tapia MD 505 [place] [address] documented as of this encounter Visit Diagnoses Diagnosis Status post surgical removal of nail matrix of toe of left foot documented in this encounter Care Teams Gas Technician Relationship Specialty Start Date End Date Joyce Tapia MD [address] [place] [address] PCP - General Family Medicine 06/19/12 documented as of this encounter
--- OUTSIDE RECORDS SUMMARY | 2024-08-01 10:20 | XMS_ITS | Encounter Summary ---
Author Organization [employer] Address [address] [facility] [address] 7t [place] [address] Care Team Providers Care Orthotist Name Role Phone Joyce Tapia MD Primary Care Provider [phone] Reason for Visit * Reason Onset Date Comments Med Refill 07/27/2024 Encounter Details Date Type Department Care Team ([facility] st Contact Info) Description 07/27/2024 Telephone [facility] [address] [place], [place] [phone] Joyce Tapia MD 505 [place] [address] Med Refill Social History Tobacco Use Types [...] * Telephone Encounter - Maxine Tillman - 07/27/2024 9:13 AM EST TC from pt requesting medication refill. Medications needing refill : oxyCODONE (Roxicodone) 5 MG immediate release tablet To be sent to: [facility]/pharmacy #[id number] - [place] - [address] documented in this encounter Plan of Treatment Upcoming Encounters Date Type Department Care Team (Late st Contact Info) Description 08/09/2024 10:30 AM EST Clinical Support [facility] 505 [place] [address] Katherine Casper RN 505 [place] [address] 09/06/2024 8:30 AM EST Office Visit [facility] 505 [place] [address] Joyce Tapia MD [address] [place] [address] documented as of this encounter Visit Diagnoses Not on filedocumented in this encounter Care Teams Orthotist Relationship Specialty Start Date End Date Joyce Tapia MD [address] [place] [address] PCP - General Family Medicine 06/19/12 documented as of this encounter
--- OUTSIDE RECORDS SUMMARY | 2024-08-01 10:20 | XMS_ITS | Encounter Summary ---
Author Organization [employer] Address [address] [facility] 7t [place] [address] Care Team Providers Care Hvac Sales Engineer Name Role Phone Joyce Tapia MD Primary Care Provider [phone] Reason for Visit * Reason Onset Date Comments Med Refill 05/28/2024 Encounter Details Date Type Department Care Team ([facility] st Contact Info) Description 05/28/2024 Refill [facility] 505 [place], [place] [phone] Joyce Tapia MD 505 [place] [address] Status post surgical removal of nail matrix [...] 10:30 AM EST Clinical Support [facility] MED & PEDS 505 [place] [address] Katherine Casper, RN 505 [place] [address] 09/06/2024 8:30 AM EST Office Visit [facility] MED & PEDS 505 [place] [address] Joyce Tapia MD 505 [place] [address] documented as of this encounter Visit Diagnoses Diagnosis Status post surgical removal of nail matrix of toe of left foot documented in this encounter Care Teams Hvac Sales Engineer Relationship Specialty Start Date End Date Joyce Tapia MD [address] [place] [address] PCP - General Family Medicine 06/19/12 documented as of this encounter
--- OUTSIDE RECORDS SUMMARY | 2024-08-01 10:20 | XMS_ITS | Encounter Summary ---
Author Organization [employer] Address [address] [facility] [address] 7t [place] [address] Care Team Providers Care Welder Production Line Gas Name Role Phone Joyce Tapia MD Primary Care Provider [phone] Reason for Visit * Reason Onset Date Comments Med Refill 07/26/2024 Encounter Details Date Type Department Care Team (Late st Contact Info) Description 07/26/2024 Refill [facility] MEDICINE 230 [place] [address] Joyce Tapia MD [address] [place] [address] Status post surgical removal of nail matrix [...] * Telephone Encounter - Sha Harris - 07/26/2024 8:49 AM EST TC from pt requesting medication refill. Medications needing refill : oxyCODONE (Roxicodone) 5 MG immediate release tablet To be sent to: [facility]/pharmacy #[id number] documented in this encounter Plan of Treatment Upcoming Encounters Date Type Department Care Team (Late st Contact Info) Description 08/09/2024 10:30 AM EST Clinical Support [facility] MED & PEDS 505 [place] [address] Katherine Casper, RN 505 [place] [address] 09/06/2024 8:30 AM EST Office Visit [facility] MED & PEDS 505 [place] [address] Joyce Tapia MD 505 [place] [address] documented as of this encounter Visit Diagnoses Diagnosis Status post surgical removal of nail matrix of toe of left foot documented in this encounter Care Teams Welder Production Line Gas Relationship Specialty Start Date End Date Joyce Tapia MD [address] [place] [address] PCP - General Family Medicine 06/19/12 documented as of this encounter
--- OUTSIDE RECORDS SUMMARY | 2024-08-01 10:20 | XMS_ITS | Encounter Summary ---
Author Organization [employer] Address [address] [facility] 7t [place] [address] Care Team Providers Care Activities Manager Name Role Phone Joyce Tapia MD Primary Care Provider [phone] Reason for Visit * Reason Onset Date Comments Med Refill 07/27/2024 Encounter Details Date Type Department Care Team (Late st Contact Info) Description 07/27/2024 Refill [facility] MEDICINE 230 [place] [address] Emerson Keith MD 505 [place] [address] Status post surgical removal of nail matrix [...] Description 08/09/2024 10:30 AM EST Clinical Support [facility] MED & PEDS 505 [place] [address] Katherine Casper, RN 505 [place] [address] 09/06/2024 8:30 AM EST Office Visit [facility] MED & PEDS 505 [place] [address] Joyce Tapia MD 505 [place] [address] documented as of this encounter Visit Diagnoses Diagnosis Status post surgical removal of nail matrix of toe of left foot documented in this encounter Care Teams Activities Manager Relationship Specialty Start Date End Date Joyce Tapia MD [address] [place] [address] PCP - General Family Medicine 06/19/12 documented as of this encounter
--- OUTSIDE RECORDS SUMMARY | 2024-08-01 10:20 | XMS_ITS | Encounter Summary ---
Author Organization [employer] Address 75 [facility] 7t [place] [address] Care Team Providers Care Frame Opener Name Role Phone Joyce Tapia MD Primary Care Provider [phone] Reason for Visit * Reason Comments Med Refill Encounter Details Date Type Department Care Team (Late st Contact Info) Description 10/11/2023 Refill [facility] MEDICINE 230 [place], [place] [phone] Ayden Orellana MD 505 [place] [address] Status post surgical removal of nail matrix [...] [facility] 505 [place] [address] Katherine Casper RN 505 [place], [place] [phone] 09/06/2024 8:30 AM EST Office Visit [facility] MED & PEDS [address] [place] [address] Joyce Tapia MD [address] [place] [address] documented as of this encounter Visit Diagnoses Diagnosis Status post surgical removal of nail matrix of toe of left foot documented in this encounter Care Teams Frame Opener Relationship Specialty Start Date End Date Joyce Tapia MD [address] [place] [address] PCP - General Family Medicine 06/19/12 documented as of this encounter
--- OUTSIDE RECORDS SUMMARY | 2024-08-01 10:20 | XMS_ITS | Encounter Summary ---
Author Organization [employer] Address [address] [facility] [address] 7t [place] [address] Care Team Providers Care Mallet And Die Cutter Name Role Phone Joyce Tapia MD Primary Care Provider [phone] Reason for Visit * Reason Onset Date Comments Med Refill 06/05/2024 Encounter Details Date Type Department Care Team (Late st Contact Info) Description 06/05/2024 Refill [facility] MEDICINE 230 [place] [address] Joyce Tapia MD [address] [place] [address] Status post surgical removal of nail matrix [...] [facility] 505 [place] [address] Katherine Casper, RN 505 [place] [address] 09/06/2024 8:30 AM EST Office Visit [facility] MED & PEDS 505 [place] [address] Joyce Tapia MD 505 [place] [address] documented as of this encounter Visit Diagnoses Diagnosis Status post surgical removal of nail matrix of toe of left foot documented in this encounter Care Teams Mallet And Die Cutter Relationship Specialty Start Date End Date Joyce Tapia MD [address] [place] [address] PCP - General Family Medicine 06/19/12 documented as of this encounter
--- OUTSIDE RECORDS SUMMARY | 2024-08-01 10:20 | XMS_ITS | Encounter Summary ---
Author Organization [employer] Address [address] [facility] [address] 7t [place] [address] Care Team Providers Care Hospitalist Medical Director Name Role Phone Joyce Tapia MD Primary Care Provider [phone] Reason for Visit * Reason Onset Date Comments Med Refill 01/20/2023 Encounter Details Date Type Department Care Team (Late st Contact Info) Description 01/20/2023 Telephone [facility] MEDICINE 230 [place] [address] Joyce Tapia MD [address] [place], [place] [phone] Med Refill Social History Tobacco Use Types [...] * Telephone Encounter - Gómez Forde - 01/20/2023 8:07 AM EDT Tc from pt requesting a med refill for oxyCODONE (Roxicodone) 5 MG immediate release tablet documented in this encounter Plan of Treatment Upcoming Encounters Date Type Department Care Team (Late st Contact Info) Description 08/09/2024 10:30 AM EST Clinical Support [facility] MED & PEDS 505 [place] [address] Katherine Casper, RN 505 [place] [address] 09/06/2024 8:30 AM EST Office Visit [facility] MED & PEDS 505 [place] [address] Joyce Tapia MD 505 [place] [address] documented as of this encounter Visit Diagnoses Not on filedocumented in this encounter Care Teams Hospitalist Medical Director Relationship Specialty Start Date End Date Joyce Tapia MD [address] [place] [phone] PCP - General Family Medicine 06/19/12 documented as of this encounter
--- OUTSIDE RECORDS SUMMARY | 2024-08-01 10:20 | XMS_ITS | Encounter Summary ---
Author Organization [employer] Address [address] [facility] [address] 7t [place] [address] Care Team Providers Care Environmental Officer Name Role Phone Joyce Tapia MD Primary Care Provider [phone] Reason for Visit * Reason Onset Date Comments Med Refill 05/08/2024 Encounter Details Date Type Department Care Team (Late st Contact Info) Description 05/08/2024 Telephone [facility] MEDICINE 230 [place] [address] Joyce Tapia MD [address] [place], [place] [phone] Med Refill Social History Tobacco Use Types [...] encounter Miscellaneous Notes * Telephone Encounter - Darcikaran Maurisio - 05/08/2024 10:19 AM EST Tc from pt requesting a refill for oxyCODONE (Roxicodone) 5 MG immediate release tablet documented in this encounter Plan of Treatment Upcoming Encounters Date Type Department Care Team (Late st Contact Info) Description 08/09/2024 10:30 AM EST Clinical Support [facility] MED & PEDS 505 [place] [address] Katherine Casper, RN 505 [place] [address] 09/06/2024 8:30 AM EST Office Visit [facility] MED & PEDS 505 [place] [address] Joyce Tapia MD 505 [place] [address] documented as of this encounter Visit Diagnoses Not on filedocumented in this encounter Care Teams Environmental Officer Relationship Specialty Start Date End Date Joyce Tapia MD [address] [place] [address] PCP - General Family Medicine 06/19/12 documented as of this encounter
--- OUTSIDE RECORDS SUMMARY | 2024-08-01 10:20 | XMS_ITS | Encounter Summary ---
Author Organization [employer] Address [address] [facility] [address] 7t [place] [address] Care Team Providers Care Procurement Consultant Name Role Phone Joyce Tapia MD Primary Care Provider [phone] Reason for Visit * Reason Onset Date Comments Med Refill 01/03/2023 Encounter Details Date Type Department Care Team (Late st Contact Info) Description 01/03/2023 Telephone [facility] MEDICINE 230 [place] [address] Joyce Tapia MD [address] [place], [place] [phone] Med Refill Social History Tobacco Use Types [...] * Telephone Encounter - Gómez Forde - 01/03/2023 8:06 AM EDT Tc from pt requesting a med refill for oxycodone 5 mg documented in this encounter Plan of Treatment Upcoming Encounters Date Type Department Care Team (Late st Contact Info) Description 08/09/2024 10:30 AM EST Clinical Support [facility] MED & PEDS 505 [place] [address] Katherine Casper, RN 505 [place] [address] 09/06/2024 8:30 AM EST Office Visit [facility] MED & PEDS 505 [place] [address] Joyce Tapia MD 505 [place] [address] documented as of this encounter Visit Diagnoses Not on filedocumented in this encounter Care Teams Procurement Consultant Relationship Specialty Start Date End Date Joyce Tapia MD [address] [place] [address] PCP - General Family Medicine 06/19/12 documented as of this encounter
--- OUTSIDE RECORDS SUMMARY | 2024-08-01 10:20 | XMS_ITS | Encounter Summary ---
Author Organization [employer] Address [address] [facility] [address] [facility] [address] 7t [place] [address] Care Team Providers Care Remote Medical Coder Name Role Phone Joyce Tapia MD Primary Care Provider [phone] Reason for Visit * Reason Onset Date Comments Med Refill 12/21/2022 Encounter Details Date Type Department Care Team ([facility] st Contact Info) Description 12/21/2022 Telephone [facility] MEDICINE 230 [place], [place] [phone] Joyce Tapia MD [address] [place], [place] [phone] Med Refill Social History Tobacco Use Types [...] t he electric, gas, oil or water [employer] threatened to shut off services in your [...] encounter Miscellaneous Notes * Telephone Encounter - Didi Wong - 12/27/2022 8:06 AM EDT Tc from patient requesting a med refill on medication oxycodone 5 mg. Please send to [facility] [place], [place] - [address] [facility] Tapia * Telephone Encounter - Gómez Forde - 12/21/2022 8:06 AM EDT Tc from pt requesting a med refill for oxycodone 5 mg documented in this encounter Plan of Treatment Upcoming Encounters Date Type Department Care Team ([facility] st Contact Info) Description 08/09/2024 10:30 AM EST Clinical Support [facility] MED & PEDS 505 [place] [address] Katherine Casper, MAKEAD 505 [place] [address] 09/06/2024 8:30 AM EST Office Visit [facility] MED & PEDS 505 [place] [address] Joyce Tapia MD [address] [place] [address] documented as of this encounter Visit Diagnoses Not on filedocumented in this encounter Care Teams Remote Medical Coder Relationship Specialty Start Date End Date Joyce Tapia MD [address] [place] [address] PCP - General Family Medicine 06/19/12 documented as of this encounter
--- OUTSIDE RECORDS SUMMARY | 2024-08-01 10:20 | XMS_ITS | Encounter Summary ---
Author Organization [employer] Address [address] [facility] [address] 7t [place] [address] Care Team Providers Care Programmable Logic Controller Assembler Name Role Phone Joyce Tapia MD Primary Care Provider [phone] Reason for Visit * Reason Onset Date Comments Med Refill 05/21/2024 Encounter Details Date Type Department Care Team ([facility] st Contact Info) Description 05/21/2024 Refill [facility] MED & PEDS 505 [place], [place] [phone] Joyce Tapia MD 505 [place] [address] Social History Tobacco Use Types Packs/Day Years [...] [facility] MED & PEDS 505 [place] [address] Katherine Casper RN 505 [place] [address] 09/06/2024 8:30 AM EST Office Visit [facility] MED & PEDS 505 [place] [address] Joyce Tapia MD 505 [place] [address] documented as of this encounter Visit Diagnoses Not on filedocumented in this encounter Care Teams Programmable Logic Controller Assembler Relationship Specialty Start Date End Date Joyce Tapia MD [address] [place] [address] PCP - General Family Medicine 06/19/12 documented as of this encounter
--- OUTSIDE RECORDS SUMMARY | 2024-08-01 10:20 | XMS_ITS | Encounter Summary ---
Author Organization [employer] Address [address] [facility] 7t [place] [address] Care Team Providers Care Pharmacy Technician Assistant Name Role Phone Joyce Tapia MD Primary Care Provider [phone] Reason for Visit * Reason Onset Date Comments Med Refill 07/12/2024 Encounter Details Date Type Department Care Team (Late st Contact Info) Description 07/12/2024 Refill [facility] MED & PEDS 505 [place], [place] [phone] Joyce Tapia MD 505 [place] [address] Status post surgical removal of nail matrix [...] 08/09/2024 10:30 AM EST Clinical Support [facility] MED & PEDS 505 [place] [address] Katherine Casper, RN 505 [place] [address] 09/06/2024 8:30 AM EST Office Visit [facility] MED & PEDS 505 [place] [address] Joyce Tapia MD 505 [place] [address] documented as of this encounter Visit Diagnoses Diagnosis Status post surgical removal of nail matrix of toe of left foot documented in this encounter Care Teams Pharmacy Technician Assistant Relationship Specialty Start Date End Date Joyce Tapia MD [address] [place] [address] PCP - General Family Medicine 06/19/12 documented as of this encounter
--- OUTSIDE RECORDS SUMMARY | 2024-08-01 10:20 | XMS_ITS | Encounter Summary ---
Author Organization [facility] Address 75 [facility] 7t [place] [address] Care Team Providers Care Corner Bead Operator Name Role Phone Joyce Tapia MD Primary Care Provider [phone] Encounter Details Date Type Department Care Team (Late st Contact Info) Description 05/24/2023 Abstract [facility] MEDICINE 230 [place], [place] [phone] Zohra Benavidez Social History Tobacco Use Types Packs/Day Years [...] [facility] MED & PEDS 505 [place] [address] Katherine Casper, MAKEDA 505 [place] [address] 09/06/2024 8:30 AM EST Office Visit [facility] MED & PEDS 505 [place] [address] Joyce Tapia MD 505 [place] [address] documented as of this encounter Procedures Procedure Name Priority Date/Time Associated Diagnosis Comments COLONOSCOPY Routine 02/20/2015 documented in this encounter Results * Hm Colonoscopy (02/20/2015) Colonoscopy Normal Normal Narrative Zohra Benavidez - 02/20/2015 Repeat in 10 year Historical Provider HEALTH MAINTENANCE Final Result documented in this encounter Visit Diagnoses Not on filedocumented in this encounter Care Teams Corner Bead Operator Relationship Specialty Start Date End Date Joyce Tapia MD [address] [place] [address] PCP - General Family Medicine 06/19/12 documented as of this encounter
--- OUTSIDE RECORDS SUMMARY | 2024-08-01 10:20 | XMS_ITS | Encounter Summary ---
Author Organization [facility] Address [address] [facility] 7t [place] [address] Care Team Providers Care Keno Writer/Runner Name Role Phone Joyce Tapia MD Primary Care Provider [phone] Reason for Visit * Reason Comments Med Refill Encounter Details Date Type Department Care Team (Late st Contact Info) Description 07/29/2023 Refill [facility] MEDICINE 230 [place], [place] [phone] Joyce Tapia MD 505 [place] [address] Status post surgical removal of nail matrix [...] 10:30 AM EST Clinical Support [facility] MED & PEDS 505 [place] [address] Katherine Casper RN 505 [place], [place] [phone] 09/06/2024 8:30 AM EST Office Visit [facility] MED & PEDS [address] [place] [address] Joyce Tapia MD [address] [place] [address] documented as of this encounter Visit Diagnoses Diagnosis Status post surgical removal of nail matrix of toe of left foot documented in this encounter Care Teams Keno Writer/Runner Relationship Specialty Start Date End Date Joyce Tapia MD [address] [place] [address] PCP - General Family Medicine 06/19/12 documented as of this encounter
--- OUTSIDE RECORDS SUMMARY | 2024-08-01 10:20 | XMS_ITS | Encounter Summary ---
Author Organization [employer] Address 75 [facility] 7t [place] [address] Care Team Providers Care Retail Sales Merchandiser Name Role Phone Joyce Tapia MD Primary Care Provider [phone] Reason for Visit * Reason Comments Med Refill Encounter Details Date Type Department Care Team (Late st Contact Info) Description 10/25/2022 Refill [facility] MED & PEDS 505 [place] [address] Jenny Schmidt MD 505 [place] [address] Status post surgical removal of nail matrix [...] suspected to have Coronavirus/COVID-19? No / Unsure 10/25/2022 3:43 PM EDT documented as of this encounter Plan of Treatment Upcoming Encounters Date Type Department Care Team (Late Contact Info) Description 08/09/2024 10:30 AM EST Clinical Support [facility] MED & PEDS 505 [place] [address] Katherine Casper, RN 505 [place] [address] 09/06/2024 8:30 AM EST Office Visit [facility] MED & PEDS 505 [place] [address] Joyce Tapia MD 505 [place] [address] documented as of this encounter Visit Diagnoses Diagnosis Status post surgical removal of nail matrix of toe of left foot documented in this encounter Care Teams Retail Sales Merchandiser Relationship Specialty Start Date End Date Joyce Tapia MD [address] [place] [address] PCP - General Family Medicine 06/19/12 documented as of this encounter
--- OUTSIDE RECORDS SUMMARY | 2024-08-01 10:20 | XMS_ITS | Encounter Summary ---
Author Organization [employer] Address [address] [facility] [address] 7t [place] [address] Care Team Providers Care Elevator Constructor Supervisor Name Role Phone Joyce Tapia MD Primary Care Provider [phone] Reason for Visit * Reason Onset Date Comments Med Refill 09/30/2023 Encounter Details Date Type Department Care Team (Late st Contact Info) Description 09/30/2023 Telephone [facility] MEDICINE 230 [place], [place] [phone] Joyce Tapia MD [address] [place], [place] [phone] Med Refill Social History Tobacco Use Types [...] encounter Miscellaneous Notes * Telephone Encounter - Joyce Tapia MD - 10/03/2023 10:41 AM EDT sent * Telephone Encounter - Gloria Landry LPN - 09/30/2023 1:39 PM EDT Please review pt request , medication not on medication list nor recently sent to pharmacy * Telephone Encounter - Gómez Forde - 09/30/2023 10:43 AM EDT Tc from pt requesting a refill for lidocaine (Lidoderm) 5 % patch documented in this encounter Plan of Treatment Upcoming Encounters Date Type Department Care Team (Late st Contact Info) Description 08/09/2024 10:30 AM EST Clinical Support [facility] MED & PEDS 505 [place] [address] Katherine Casper, MAKEDA 505 [place] [address] 09/06/2024 8:30 AM EST Office Visit [facility] MED & PEDS 505 [place] [address] Joyce Tapia MD 505 [place] [address] documented as of this encounter Visit Diagnoses Not on filedocumented in this encounter Care Teams Elevator Constructor Supervisor Relationship Specialty Start Date End Date Joyce Tapia MD [address] [place] [address] PCP - General Family Medicine 06/19/12 documented as of this encounter
--- OUTSIDE RECORDS SUMMARY | 2024-08-01 10:20 | XMS_ITS | Encounter Summary ---
Author Organization [employer] Address [address] [facility] [address] 7t [place] [address] Care Team Providers Care Critical Care Nurse Practitioner Name Role Phone Joyce Tapia MD Primary Care Provider Reason for Visit * Reason Onset Date Comments Med Refill 02/07/2024 Encounter Details Date Type Department Care Team (Late st Contact Info) Description 02/07/2024 Telephone [facility] MEDICINE 230 [place], [place] [phone] Joyce Tapia MD [address] [place], [place] [phone] Med Refill Social History Tobacco Use Types [...] * Telephone Encounter - Gómez Forde - 02/07/2024 9:08 AM EDT Tc from pt requesting a refill for oxyCODONE (Roxicodone) 5 MG immediate release tablet documented in this encounter Plan of Treatment Upcoming Encounters Date Type Department Care Team (Late st Contact Info) Description 08/09/2024 10:30 AM EST Clinical Support [facility] MED & PEDS 505 [place] [address] Katherine Casper, RN 505 [place] [address] 09/06/2024 8:30 AM EST Office Visit [facility] MED & PEDS 505 [place] [address] Joyce Tapia MD 505 [place] [address] documented as of this encounter Visit Diagnoses Not on filedocumented in this encounter Care Teams Critical Care Nurse Practitioner Relationship Specialty Start Date End Date Joyce Tapia MD [address] [place] [address] PCP - General Family Medicine 06/19/12 documented as of this encounter
--- OUTSIDE RECORDS SUMMARY | 2024-08-01 10:20 | XMS_ITS | Encounter Summary ---
Author Organization [employer] Address [address] [facility] [address] [facility] [address] 7t [place] [address] Care Team Providers Care Butcher Fish Name Role Phone Joyce Tapia MD Primary Care Provider [phone] Reason for Visit * Reason Onset Date Comments Med Refill 05/28/2024 Encounter Details Date Type Department Care Team ([facility] st Contact Info) Description 05/28/2024 Telephone [facility] [address] [place] [address] Joyce Tapia MD [address] [place], [place] [phone] Med Refill Social History Tobacco Use Types [...] * Telephone Encounter - Gómez Forde - 05/28/2024 8:21 AM EST Tc from pt requesting a refill for oxyCODONE (Roxicodone) 5 MG immediate release tablet documented in this encounter Plan of Treatment Upcoming Encounters Date Type Department Care Team (Late st Contact Info) Description 08/09/2024 10:30 AM EST Clinical Support [facility] MED & [facility]S 505 [place] [address] Katherine Casper, RN 505 [place] [address] 09/06/2024 8:30 AM EST Office Visit [facility] 505 [place] [address] Joyce Tapia MD 505 [place] [address] documented as of this encounter Visit Diagnoses Not on filedocumented in this encounter Care Teams Butcher Fish Relationship Specialty Start Date End Date Joyce Tapia MD [address] [place] [address] PCP - General Family Medicine 06/19/12 documented as of this encounter
--- OUTSIDE RECORDS SUMMARY | 2024-08-01 10:21 | XMS_ITS | Encounter Summary ---
Author Organization [facility] Address [address] [facility] 7t [place] [address] Care Team Providers Care Mathematical Physicist Name Role Phone Joyec Tapia MD Primary Care Provider [phone] Encounter Details Date Type Department Care Team (Late st Contact Info) Description 09/27/2022 Orders Only [facility] MEDICINE [address] [place], [place] [phone] Comfort Estrada LPN Social History Tobacco Use Types Packs/Day Years [...] suspected to have Coronavirus/COVID-19? No / Unsure 09/20/2022 10:43 AM EDT documented as of this encounter Plan of Treatment Upcoming Encounters Date Type Department Care Team (Late st Contact Info) Description 08/09/2024 10:30 AM EST Clinical Support [facility]ED[facility] 505 [place] [address] Katherine Casper, RN 505 [place] [address] 09/06/2024 8:30 AM EST Office Visit [facility] [address] [place] [address] Joyce Tapia MD [address] [place] [address] documented as of this encounter Visit Diagnoses Not on filedocumented in this encounter Care Teams Mathematical Physicist Relationship Specialty Start Date End Date Joyce Tapia MD [address] [place] [address] PCP - General Family Medicine 06/19/12 documented as of this encounter
--- OUTSIDE RECORDS SUMMARY | 2024-08-01 10:21 | XMS_ITS | Encounter Summary ---
Author Organization [employer] Address [address] [facility] 7t [place] [address] Care Team Providers Care Credit Card Clerk Name Role Phone Joyce Tapia MD Primary Care Provider [phone] Reason for Visit * Reason Onset Date Comments Med Refill 07/01/2024 Encounter Details Date Type Department Care Team (Late st Contact Info) Description 07/01/2024 Refill [facility] 230 [place] [address] Emerson Keith MD 505 [place] [address] Status post surgical removal of nail matrix [...] * Telephone Encounter - Sha Harris - 07/02/2024 2:25 PM EST Tc from pt requesting medication refill on Oxycodone or status as she went to pharmacy an was not received. documented in this encounter Plan of Treatment Upcoming Encounters Date Type Department Care Team (Late st Contact Info) Description 08/09/2024 10:30 AM EST Clinical Support [facility] MED & PEDS 505 [place] [address] Katherine Casper RN 505 [place] [address] 09/06/2024 8:30 AM EST Office Visit [facility] 505 [place] [address] Joyce Tapia MD 505 [place] [address] documented as of this encounter Visit Diagnoses Diagnosis Status post surgical removal of nail matrix of toe of left foot documented in this encounter Care Teams Credit Card Clerk Relationship Specialty Start Date End Date Joyce Tapia MD [address] [place] [address] PCP - General Family Medicine 06/19/12 documented as of this encounter
--- OUTSIDE RECORDS SUMMARY | 2024-08-01 10:21 | XMS_ITS | Encounter Summary ---
Author Organization [employer] Address [address] [facility] 7t [place] [address] Care Team Providers Care Pain Management Nurse Practitioner Name Role Phone Joyce Tapia MD Primary Care Provider [phone] Reason for Visit * Reason Onset Date Comments Med Refill 05/30/2023 Encounter Details Date Type Department Care Team ([facility] st Contact Info) Description 05/30/[address] [facility] MEDICINE 230 [place], [place] [phone] Joyce Tapia MD [address] [place] [address] Med Refill Social History Tobacco Use Types [...] * Telephone Encounter - Madhuri Rahman - 05/30/2023 1:04 PM EST Tc from pt requesting med refill on; oxyCODONE (Roxicodone) 5 MG immediate release tablet [facility] [place] - [address] documented in this encounter Plan of Treatment Upcoming Encounters Date Type Department Care Team (Late st Contact Info) Description 08/09/2024 10:30 AM EST Clinical Support [facility] MED [facility] PEDS 505 [place] [address] Katherine Casper, RN 505 [place] [address] 09/06/2024 8:30 AM EST Office Visit [facility]ED[facility] 505 [place] [address] Joyce Tapia MD 505 [place] [address] documented as of this encounter Visit Diagnoses Not on filedocumented in this encounter Care Teams Pain Management Nurse Practitioner Relationship Specialty Start Date End Date Joyce Tapia MD [address] [place] [address] PCP - General Family Medicine 06/19/12 documented as of this encounter
--- OUTSIDE RECORDS SUMMARY | 2024-08-01 10:21 | XMS_ITS | Encounter Summary ---
Author Organization [employer] Address [address] [facility] 7t [place] [address] Care Team Providers Care Ux Specialist Name Role Phone Joyce Tapia MD Primary Care Provider [phone] Reason for Referral * Medications - Closed Specialty Diagnoses / Procedures Referred By Contac t Referred To Contact Diagnoses Pain Jenny Schmidt MD 505 [place] [address] Phone: tel: fax: Referral ID Status Reason Start Date Expiration Date Visits Re quested Visits Authorized [id number] Closed 07/02/2024 07/02/2025 1 1 Reason for Visit * Reason Onset Date Comments Med Refill 07/01/2024 Encounter Details Date Type Department Care Team ([facility] st Contact Info) Description 07/01/2024 Refill [facility]EDS 505 [place] [address] Joyce Tapia MD 505 [place] [address] Pain (Primary Dx) Social History Tobacco Use Types Packs/Day Years [...] [facility] PED[facility] 505 [place] [address] Katherine Casper, RN 505 [place] [address] 09/06/2024 8:30 AM EST Office Visit [facility] MED [facility] P[facility] 505 [place] [address] Joyce Tapia MD 505 [place] [address] documented as of this encounter Visit Diagnoses Diagnosis Pain- Primary Generalized pain documented in this encounter Care Teams Ux Specialist Relationship Specialty Start Date End Date Joyce Tapia MD [address] [place] [address] PCP - General Family Medicine 06/19/12 documented as of this encounter
--- OUTSIDE RECORDS SUMMARY | 2024-08-01 10:21 | XMS_ITS | Encounter Summary ---
Author Organization [employer] Address [address] [facility] 7t [place] [address] Care Team Providers Care Retail Pharmacy Technician Name Role Phone Joyce Tapia MD Primary Care Provider [phone] Reason for Visit * Reason Onset Date Comments Med Refill 04/05/2024 Encounter Details Date Type Department Care Team ([facility] st Contact Info) Description 04/05/2024 Refill [facility] & PEDS 505 [place], [place] [phone] Joyce Tapia MD 505 [place] [address] Status post surgical removal of nail matrix [...] AM EST Clinical Support [facility] MED & PEDS 505 [place] [address] Katherine Casper, RN 505 [place] [address] 09/06/2024 8:30 AM EST Office [facility] PED[facility] 505 [place] [address] Joyce Tapia MD 505 [place] [address] documented as of this encounter Visit Diagnoses Diagnosis Status post surgical removal of nail matrix of toe of left foot documented in this encounter Care Teams Retail Pharmacy Technician Relationship Specialty Start Date End Date Joyce Tapia MD [address] [place] [address] PCP - General Family Medicine 06/19/12 documented as of this encounter
--- OUTSIDE RECORDS SUMMARY | 2024-08-01 10:21 | XMS_ITS | Encounter Summary ---
Author Organization [employer] Address [address] [facility] 7t [place] [address] Care Team Providers Care Filling Hauler Name Role Phone Joyce Tapia MD Primary Care Provider [phone] Reason for Visit * Reason Comments Med Refill Encounter Details Date Type Department Care Team (Late Contact Info) Description 06/12/2023 Refill [facility] & PED[facility] 505 [place] [address] Christy Ray MD 505 [place] [address] Muscle spasm Social History Tobacco Use Types [...] Clinical Support [facility] 505 [place] [address] Katherine Casper RN 505 [place], [place] [phone] 09/06/2024 8:30 AM EST Office Visit [facility] 505 [place] [address] Joyce Tapia MD 505 [place] [address] documented as of this encounter Visit Diagnoses Diagnosis Muscle spasm Spasm of muscle documented in this encounter Care Teams Filling Hauler Relationship Specialty Start Date End Date Joyce Tapia MD [address] [place] [address] PCP - General Family Medicine 06/19/12 documented as of this encounter
--- OUTSIDE RECORDS SUMMARY | 2024-08-01 10:21 | XMS_ITS | Encounter Summary ---
Author Organization [employer] Address [address] [facility] [address] 7t [place] [address] Care Team Providers Care Horse Exerciser Name Role Phone Joyce Tapia MD Primary Care Provider [phone] Reason for Visit * Reason Onset Date Comments Med Refill 02/28/2024 Encounter Details Date Type Department Care Team (Late st Contact Info) Description 02/28/2024 Telephone [facility] MEDICINE 230 [place] [address] Joyce Tapia MD [address] [place], [place] [phone] Med Refill Social History Tobacco Use Types [...] encounter Miscellaneous Notes * Telephone Encounter - Marcel Hernandez - 02/28/2024 8:12 AM EDT TC from pt requesting medication refill. Medications needing refill : oxyCODONE (Roxicodone) 5 MG immediate release tablet To be sent to: [facility] [place], [place] - [address] [place] [address] documented in this encounter Plan of Treatment Upcoming Encounters Date Type Department Care Team (Late st Contact Info) Description 08/09/2024 10:30 AM EST Clinical Support [facility] MED & PEDS 505 [place] [address] Katherine Casper, RN 505 [place] [address] 09/06/2024 8:30 AM EST Office Visit [facility] MED [facility] PED[facility] 505 [place] [address] Joyce Tapia MD 505 [place] [address] documented as of this encounter Visit Diagnoses Not on filedocumented in this encounter Care Teams Horse Exerciser Relationship Specialty Start Date End Date Joyce Tapia MD [address] [place] [address] PCP - General Family Medicine 06/19/12 documented as of this encounter
--- OUTSIDE RECORDS SUMMARY | 2024-08-01 10:21 | XMS_ITS | Encounter Summary ---
Author Organization [employer] Address [address] [facility] [address] [facility] [address] 7t [place] [address] Care Team Providers Care Grizzly Worker Name Role Phone Joyce Tapia MD Primary Care Provider [phone] Reason for Visit * Reason Onset Date Comments Med Refill 11/22/2022 Encounter Details Date Type Department Care Team (Late st Contact Info) Description 11/22/2022 Telephone [facility] MEDICINE 230 [place] [address] Joyce Tapia MD [address] [place], [place] [phone] Med Refill Social History Tobacco Use Types [...] * Telephone Encounter - Gómez Forde - 11/22/2022 8:05 AM EDT Tc from pt requesting a med refill for oxycodone 5 mg documented in this encounter Plan of Treatment Upcoming Encounters Date Type Department Care Team (Late st Contact Info) Description 08/09/2024 10:30 AM EST Clinical Support [facility] MED & PEDS 505 [place] [address] Katherine Casper, RN 505 [place] [address] 09/06/2024 8:30 AM EST Office Visit [facility] PED[facility] 505 [place] [address] Joyce Tapia MD 505 [place] [address] documented as of this encounter Visit Diagnoses Not on filedocumented in this encounter Care Teams Grizzly Worker Relationship Specialty Start Date End Date Joyce Tapia MD [address] [place] [address] PCP - General Family Medicine 06/19/12 documented as of this encounter
--- OUTSIDE RECORDS SUMMARY | 2024-08-01 10:21 | XMS_ITS | Encounter Summary ---
Author Organization [employer] Address [address] [facility] 7t [place] [address] Care Team Providers Care Appraisal Technician Name Role Phone Joyce Tapia MD Primary Care Provider [phone] Encounter Details Date Type Department Care Team ([facility] Contact Info) Description 10/26/2022 Orders Only [facility]EDS 505 [place], [place] [phone] Emerson Keith MD 505 [place], [place] [phone] Social History Tobacco Use Types Packs/Day Years [...] Description 08/09/2024 10:30 AM EST Clinical Support [facility] 505 [place] [address] Katherine Casper RN 505 [place] [address] 09/06/2024 8:30 AM EST Office Visit [facility] 505 [place] [address] Joyce Tapia MD 505 [place] [address] documented as of this encounter Visit Diagnoses Not on filedocumented in this encounter Care Teams Appraisal Technician Relationship Specialty Start Date End Date Joyce Tapia MD [address] [place] [address] PCP - General Family Medicine 06/19/12 documented as of this encounter
--- OUTSIDE RECORDS SUMMARY | 2024-08-01 10:21 | XMS_ITS | Encounter Summary ---
Author Organization [employer] Address [address] [facility] 7t [place] [address] Care Team Providers Care Sports Book Board Attendant Name Role Phone Joyce Tapia MD Primary Care Provider [phone] Reason for Visit * Reason Onset Date Comments Med Refill 06/28/2023 Encounter Details Date Type Department Care Team ([facility] st Contact Info) Description 06/28/2023 Telephone [facility] MEDICINE 230 [place], [place] [phone] Joyce Tapia MD [address] [place] [address] Med Refill Social History Tobacco Use Types [...] * Telephone Encounter - Madhuri Rahman - 06/28/2023 8:07 AM EST TC from pt requesting medication refill. Medications needing refill : oxyCODONE (Roxicodone) 5 MG immediate release tablet To be sent to: [facility] [place] - [address] [facility] documented in this encounter Plan of Treatment Upcoming Encounters Date Type Department Care Team (Late st Contact Info) Description 08/09/2024 10:30 AM EST Clinical Support [facility] MED & PEDS 505 [place] [address] Katherine Casper, MAKEDA 505 [place] [address] 09/06/2024 8:30 AM EST Office Visit [facility] PED[facility] 505 [place] [address] Joyce Tapia MD 505 [place] [address] documented as of this encounter Visit Diagnoses Not on filedocumented in this encounter Care Teams Sports Book Board Attendant Relationship Specialty Start Date End Date Joyce Tapia MD [address] [place] [address] PCP - General Family Medicine 06/19/12 documented as of this encounter
--- OUTSIDE RECORDS SUMMARY | 2024-08-01 10:21 | XMS_ITS | Encounter Summary ---
Author Organization [employer] Address [address] [facility] [address] 7t [place] [address] Care Team Providers Care Sql Database Developer Name Role Phone Joyce Tapia MD Primary Care Provider [phone] Reason for Visit * Reason Onset Date Comments Med Refill 04/05/2024 Encounter Details Date Type Department Care Team (Late st Contact Info) Description 04/05/2024 Telephone [facility] MEDICINE 230 [place] [address] Joyce Tapia MD [address] [place], [place] [phone] Med Refill Social History Tobacco Use Types [...] * Telephone Encounter - Gómez Forde - 04/05/2024 8:23 AM EDT Tc from pt requesting a refill for oxyCODONE (Roxicodone) 5 MG immediate release tablet documented in this encounter Plan of Treatment Upcoming Encounters Date Type Department Care Team (Late st Contact Info) Description 08/09/2024 10:30 AM EST Clinical Support [facility] 505 [place] [address] Katherine Casper, MAKEDA 505 [place] [address] 09/06/2024 8:30 AM EST Office Visit [facility]ED[facility] 505 [place] [address] Joyce Tapia MD 505 [place] [address] documented as of this encounter Visit Diagnoses Not on filedocumented in this encounter Care Teams Sql Database Developer Relationship Specialty Start Date End Date Joyce Tapia MD [address] [place] [address] PCP - General Family Medicine 06/19/12 documented as of this encounter
--- OUTSIDE RECORDS SUMMARY | 2024-08-01 10:21 | XMS_ITS | Encounter Summary ---
Author Organization [employer] Address [address] [facility] [address] 7t [place] [address] Care Team Providers Care Credit Risk Analyst Name Role Phone Joyce Tapia MD Primary Care Provider [phone] Reason for Visit * Reason Onset Date Comments Med Refill 11/30/2022 Encounter Details Date Type Department Care Team (Late st Contact Info) Description 11/30/2022 Telephone [facility] MEDICINE 230 [place] [address] Joyce Tapia MD [address] [place], [place] [phone] Med Refill Social History Tobacco Use Types [...] * Telephone Encounter - Gómez Forde - 11/30/2022 9:25 AM EDT Tc from pt requesting a refill for oxycodone 5 mg , pt would like script sent to [facility] pharmacy. documented in this encounter Plan of Treatment Upcoming Encounters Date Type Department Care Team (Late st Contact Info) Description 08/09/2024 10:30 AM EST Clinical Support [facility] MED [facility] PEDS 505 [place] [address] Katherine Casper, MAKEDA 505 [place] [address] 09/06/2024 8:30 AM EST Office Visit [facility] MED [facility] PED[facility] 505 [place] [address] Joyce Tapia MD 505 [place] [address] documented as of this encounter Visit Diagnoses Not on filedocumented in this encounter Care Teams Credit Risk Analyst Relationship Specialty Start Date End Date Joyce Tapia MD [address] [place] [address] PCP - General Family Medicine 06/19/12 documented as of this encounter
--- OUTSIDE RECORDS SUMMARY | 2024-08-01 10:21 | XMS_ITS | Encounter Summary ---
Author Organization [employer] Address [address] [facility] 7t [place] [address] Care Team Providers Care Peoplesoft Consultant Name Role Phone Joyce Tapia MD Primary Care Provider [phone] Reason for Visit * Reason Onset Date Comments Med Refill 06/25/2024 Encounter Details Date Type Department Care Team ([facility] st Contact Info) Description 06/25/2024 Refill [facility]EDS 505 [place], [place] [phone] Joyce Tapia MD 505 [place] [address] Status post surgical removal of nail matrix [...] * Telephone Encounter - Maxine Tillman - 06/25/2024 10:44 AM EST TC from pt requesting medication refill. Medications needing refill : oxyCODONE (Roxicodone) 5 MG immediate release tablet To be sent to: [facility]/pharmacy #[id number] [place] - [address] [facility] documented in this encounter Plan of Treatment Upcoming Encounters Date Type Department Care Team (Late st Contact Info) Description 08/09/2024 10:30 AM EST Clinical Support [facility] MED & PEDS 505 [place] [address] Katherine Casper RN 505 [place] [address] 09/06/2024 8:30 AM EST Office Visit [facility] MED [facility] PEDS [address] [place] [address] Joyce Tapia MD 505 [place] [address] documented as of this encounter Visit Diagnoses Diagnosis Status post surgical removal of nail matrix of toe of left foot documented in this encounter Care Teams Peoplesoft Consultant Relationship Specialty Start Date End Date Joyce Tapia MD [address] [place] [address] PCP - General Family Medicine 06/19/12 documented as of this encounter
--- OUTSIDE RECORDS SUMMARY | 2024-08-01 10:21 | XMS_ITS | Encounter Summary ---
Author Organization [employer] Address [address] [facility] [address] 7t [place] [address] Care Team Providers Care Penology Teacher Name Role Phone Joyce Tapia MD Primary Care Provider [phone] Reason for Visit * Reason Onset Date Comments Med Refill 07/02/2024 Encounter Details Date Type Department Care Team ([facility] st Contact Info) Description 07/02/2024 Telephone [facility] MED [facility]EDS 505 [place], [place] [phone] Joyce Tapia MD 505 [place] [address] Med Refill Social History Tobacco Use Types [...] encounter Miscellaneous Notes * Telephone Encounter - Alma Naik - 07/02/2024 8:58 AM EST lidocaine (Lidoderm) 5 % patch Oxycodone/ pt stated receives med weekly documented in this encounter Plan of Treatment Upcoming Encounters Date Type Department Care Team (Late st Contact Info) Description 08/09/2024 10:30 AM EST Clinical Support [facility] MED & PEDS 505 [place] [address] Katherine Casper RN 505 [place] [address] 09/06/2024 8:30 AM EST Office Visit [facility] PEDS 505 [place] [address] Joyce Tapia MD 505 [place] [address] documented as of this encounter Visit Diagnoses Not on filedocumented in this encounter Care Teams Penology Teacher Relationship Specialty Start Date End Date Joyce Tapia MD [address] [place] [address] PCP - General Family Medicine 06/19/12 documented as of this encounter
--- OUTSIDE RECORDS SUMMARY | 2024-08-01 10:21 | XMS_ITS | Encounter Summary ---
Author Organization [employer] Address [address] [facility] [address] 7t [place] [address] Care Team Providers Care Abap Developer Name Role Phone Joyce Tapia MD Primary Care Provider [phone] Reason for Visit * Reason Onset Date Comments Med Refill 07/02/2024 Encounter Details Date Type Department Care Team (Late st Contact Info) Description 07/02/2024 Refill [facility] MEDICINE [address] [place] [address] Kassi Johnston FNP [address] [place] [address] Status post surgical removal of nail matrix [...] 10:30 AM EST Clinical Support [facility] MED & PEDS 505 [place] [address] Katherine Casper RN 505 [place] [address] 09/06/2024 8:30 AM EST Office Visit [facility] MED & PEDS 505 [place] [address] Joyce Tapia MD 505 [place] [address] documented as of this encounter Visit Diagnoses Diagnosis Status post surgical removal of nail matrix of toe of left foot documented in this encounter Care Teams Abap Developer Relationship Specialty Start Date End Date Joyce Tapia MD [address] [place] [address] PCP - General Family Medicine 06/19/12 documented as of this encounter
--- OUTSIDE RECORDS SUMMARY | 2024-08-01 10:21 | XMS_ITS | Encounter Summary ---
Author Organization [email or web address] Address [address] [facility] [address] 7t [place] [address] Care Team Providers Care Manager Oracle [employer] Name Role Phone Joyce Tapia MD Primary Care Provider [phone] Reason for Visit * Reason Onset Date Comments Med Refill 06/25/2024 Encounter Details Date Type Department Care Team (Late st Contact Info) Description 06/25/2024 Refill [facility] MEDICINE 230 [place] [address] Joyce Tapia MD [address] [place] [address] Status post surgical removal of nail matrix [...] [facility] 505 [place] [address] Katherine Casper, RN 505 [place] [address] 09/06/2024 8:30 AM EST Office Visit [facility] 505 [place] [address] Joyce Tapia MD 505 [place] [address] documented as of this encounter Visit Diagnoses Diagnosis Status post surgical removal of nail matrix of toe of left foot documented in this encounter Care Teams Manager [employer] Relationship Specialty Start Date End Date Joyce Tapia MD [address] [place] [address] PCP - General Family Medicine 06/19/12 documented as of this encounter
--- OUTSIDE RECORDS SUMMARY | 2024-08-01 10:21 | XMS_ITS | Encounter Summary ---
Author Organization [employer] Address [address] [facility] [address] 7t [place] [address] Care Team Providers Care Medical Services Assistant Name Role Phone Joyce Tapia MD Primary Care Provider [phone] Reason for Visit * Reason Onset Date Comments Med Refill 03/29/2024 Encounter Details Date Type Department Care Team (Late st Contact Info) Description 03/29/2024 Telephone [facility] MEDICINE 230 [place], [place] [phone] Joyce Tapia MD [address] [place], [place] [phone] Med Refill Social History Tobacco Use Types [...] * Telephone Encounter - Gómez Forde - 03/29/2024 8:07 AM EDT Tc from pt requesting a refill oxyCODONE (Roxicodone) 5 MG immediate release tablet. documented in this encounter Plan of Treatment Upcoming Encounters Date Type Department Care Team (Late st Contact Info) Description 08/09/2024 10:30 AM EST Clinical Support [facility] MED & PEDS 505 [place] [address] Katherine Casper, MAKEDA 505 [place] [address] 09/06/2024 8:30 AM EST Office Visit [facility] MED & PEDS 505 [place] [address] Joyce Tapia MD 505 [place] [address] documented as of this encounter Visit Diagnoses Not on filedocumented in this encounter Care Teams Medical Services Assistant Relationship Specialty Start Date End Date Joyce Tapia MD [address] [place] [address] PCP - General Family Medicine 06/19/12 documented as of this encounter
== END 2024-08-01 09:02 | disposition home or self-care (01) ==
LOC: HO.HOSX 09:01
PROVIDERS: Visit Provider Orthopaedic Surgery
DX: M65.322 Trigger finger, left index finger (principal); M72.0 Palmar fascial fibromatosis [Dupuytren]; E11.9 Type 2 diabetes mellitus without complications
CPT/HCPCS: 20550; 73130; 99212; J1100; J2003

== ENCOUNTER 2024-08-01 09:10 | Outpatient (REF) | payer OTHER, SELFPAY ==
[2024-08-01 11:55] LABS: Blood Urea Nitrogen 13 mg/dL (9-16); Estimated Glomerular Filt Rate > 60
== END 2024-08-01 09:11 | disposition home or self-care (01) ==
LOC: HO.LAB 09:10
PROVIDERS: PCP Student in an Organized Health Care Education/Training Program; Visit Provider Physician Assistant Surgical
DX: Z01.818 Encounter for other preprocedural examination (principal)
CPT/HCPCS: 36415; 82565; 84520

== ENCOUNTER → 2024-08-01 09:44 | Outpatient (BNV) | payer OTHER, SELFPAY | PROVIDERS: Visit Provider Radiology Diagnostic Radiology | DX: M79.642 Pain in left hand (principal) | CPT/HCPCS: 73130 ==

== ENCOUNTER 2024-08-16 11:26 | Outpatient (REF) | payer OTHER, SELFPAY ==
--- OUTSIDE RECORDS SUMMARY | 2024-08-16 12:03 | XMS_ITS | Encounter Summary ---
Author Organization [employer] Address [address] [facility] [address] 7t [place] [address] Care Team Providers Care Cosmetician Name Role Phone Joyce Tapia MD Primary Care Provider [phone] Reason for Visit * Reason Onset Date Comments Med Refill 07/19/2024 Encounter Details Date Type Department Care Team ([facility] st Contact Info) Description 07/19/2024 Refill [facility] CHC MED & PEDS 505 [place], [place] [phone] Joyce Tapia MD 505 [place] [address] Social History Tobacco Use Types Packs/Day Years [...] Care Team (Late st Contact Info) Description 09/06/2024 8:30 AM EST Office Visit [facility] MED & PEDS 505 [place] [address] Joyce Tapia MD 505 [place] [address] 09/17/2024 9:30 AM EDT Medication Management [facility] MED & PEDS 505 [place] [address] Cristal Muhammad, PharmD 230 [place] [address] 10/18/2024 10:00 AM EDT Clinical Support [facility] MED & PEDS 505 [place] [address] Katherine Casper, RN 505 [place] [address] documented as of this encounter Visit Diagnoses Not on filedocumented in this encounter Care Teams Cosmetician Relationship Specialty Start Date End Date Joyce Tapia MD 230 [place] [address] PCP - General Family Medicine 06/19/12 documented as of this encounter
--- OUTSIDE RECORDS SUMMARY | 2024-08-16 12:03 | XMS_ITS | Encounter Summary ---
Author Organization [employer] Address [address] [facility] [address] 7t [place] [address] Care Team Providers Care Air Breaker Operator Name Role Phone Joyce Tapia MD Primary Care Provider Encounter Details Date Type Department Care Team (Late st Contact Info) Description 07/25/2024 Telephone [facility] MEDICINE 230 [place] [address] Joyce Tapia MD [address] [place], [place] [phone] Social History Tobacco Use Types Packs/Day Years [...] 1:52 PM EST Patient was seen by community nutrition educator within the past 6 months and would benefit from a transition to the pharmacy CDTM program. Please send a referral for CDTM - Diabetes to ensure continuity of care. Thank you! documented in this encounter Plan of Treatment Upcoming Encounters Date Type Department Care Team (Late st Contact Info) Description 09/06/2024 8:30 AM EST Office Visit [facility] MED & PEDS 505 [place] [address] Joyce Tapia MD 505 [place] [address] 09/17/2024 9:30 AM EDT Medication Management [facility] MED & PEDS 505 [place] [address] Cristal Muhammad PharmD 230 [place] [address] 10/18/2024 10:00 AM EDT Clinical Support [facility] MED & PEDS 505 [place] [address] Katherine Casper, MAKEDA 505 [place] [address] documented as of this encounter Visit Diagnoses Not on filedocumented in this encounter Care Teams Air Breaker Operator Relationship Specialty Start Date End Date Joyce Tapia MD 230 [place] [address] PCP - General Family Medicine 06/19/12 documented as of this encounter
--- OUTSIDE RECORDS SUMMARY | 2024-08-16 12:03 | XMS_ITS | Encounter Summary ---
Author Organization [employer] Address [address] [facility] 7t [place] [address] Care Team Providers Care Glass Cutting Machine Operator Name Role Phone Joyce Tapia MD Primary Care Provider [phone] Reason for Visit * Reason Comments Transition Of Care (Tcm) Encounter Details Date Type Department Care Team ([facility] st Contact Info) Description 07/24/2024 Patient Outreach [facility] CHC MED & PEDS [address] [place], [place] [phone] Joyce Tapia MD 505 [place], [place] [phone] Transition Of Care (Tcm) Social History Tobacco [...] t he electric, gas, oil or water [employer] threatened to shut off services in your [...] 07/24/24 0846 Hospital Discharges and Admission for [facility] Type of Visit Emergency Department Date of Admission/Visit 07/22/24 Date of Discharge 07/22/24 Facility [facility] Diagnosis left hand injury Disposition Discharged Home * Christina Bradley RN - 07/24/2024 8:46 AM EST TC to patient. She states her finger is ok. Not too bad. All questions and concerns have been addressed. documented in this encounter Plan of Treatment Upcoming Encounters Date Type Department Care Team (Late st Contact Info) Description 09/06/2024 8:30 AM EST Office Visit [facility] MED & PEDS 505 [place] [address] Joyce Tapia MD 505 [place] [address] 09/17/2024 9:30 AM EDT Medication Management [facility] MED & PEDS 505 [place] [address] Cristal Muhammad, PharmD 230 [place] [address] 10/18/2024 10:00 AM EDT Clinical Support [facility] MED & PEDS [address] [place] [address] Katherine Casper, RN [address] [place] [address] documented as of this encounter Visit Diagnoses Not on filedocumented in this encounter Care Teams Glass Cutting Machine Operator Relationship Specialty Start Date End Date Joyce Tapia MD [address] [place] [address] PCP - General Family Medicine 06/19/12 documented as of this encounter
--- OUTSIDE RECORDS SUMMARY | 2024-08-16 12:03 | XMS_ITS | Encounter Summary ---
Author Organization [employer] Address [address] [facility] [address] 7t [place] [address] Care Team Providers Care Box Toe Buffer Name Role Phone Joyce Tapia MD Primary Care Provider [phone] Encounter Details Date Type Department Care Team [...] Description 09/06/2024 8:30 AM EST Office Visit [facility] MED & PEDS 505 [place] [address] Joyce Tapia MD 505 [place] [address] 09/17/2024 9:30 AM EDT Medication Management [facility] MED & PEDS 505 [place] [address] Cristal Muhammad, PharmD 230 [place] [address] 10/18/2024 10:00 AM EDT Clinical Support [facility] MED & PEDS 505 [place] [address] Katherine Casper, MAKEDA 505 [place] [address] documented as of this encounter Procedures Procedure [...] EST Narrative 07/21/2024 11:59 PM EST ? [facility] ?[address] ?[place] [address] ?XRay Report ? Signed ? Patient: Grover,Nayely ?MR#: [id number] ?? [id number] ? : 1960 ?Acct:[id number] ? Age/Sex: 63 / F ?ADM Date: 07/21/24 ? Loc: HO.ED ? Attending Dr: ? Ordering Physician: Janel Pitts MD ?? Date of Service: 07/21/24 ?? Procedure(s): XR hand LT min 3V ?? Accession Number(s): [id number] ? cc: Joyce Tapia MD; Janel Pitts [...] ? DD/ 56 ? TD/TT: 07/21/242356 ? 3D Animator: ? Procedure Note Javed, Image - 07/22/2024 [place] [address] XRay Report Signed Patient: Nayely GroverMR#: [id number] : 1960Acct:[id number] Age/Sex: 63 / FADM Date: 07/21/24 Loc: HO.ED Attending Dr: Ordering Physician: Janel Pitts MD Date of Service: 07/21/24 Procedure(s): XR hand LT min 3V Accession Number(s): [id number] cc: Joyce Tapia MD; Janel Pitts MD [...] in OV> 07/21/242357 DD/ 56 TD/TT: 07/21/242356 3D Animator: [facility] External Provider IMG XR PROCEDURES Edited Result - Final * Hematoxylin and Eosin Stain (07/18/2024 8:13 AM EST) 07/18/2024 8:13 AM EST 07/18/2024 9:01 AM EST Narrative [facility] - 07/20/2024 9:46 AM EST ----- ------- Name: Nayely Grover ?Age/Sex: 63/F ? : 1960 Unit#: [id number] ?? Attend Dr: Donald Pa MD ?Re07/18/24 ?Status: DEP SDC ? Location: HO.SSS ?Disch: ? ----- ------- SPEC : [id number] ?RECD: 07/18/24 ? STATUS: ??SOUT ? REQ NUM: [id number] ? JOSE: 07/18/24 ? SUBM DR: Donald [...] Grover ?Age/Sex: 63/F ? : 1960 Unit#: [id number] ?? Attend Dr: Donald Pa MD ?Re07/18/24 ?Status: DEP SDC ? Location: HO.SSS ?Disch: ? ----- ------- SPEC : [id number] ?RECD: 07/18/24-900 ? STATUS: ??SOUT ? REQ NUM: [id number] ? JOSE: 07/18/24 ? SUBM DR: Donald Pa MD ? ENTERED: ??07/18/24 ?SP TYPE: Surgical ? OTHR DR: Joyce Tapia MD ? ORDERED: ??HE Stain/9, Gross Micro L4/3, IHC, Special st. 2, H. pylori, AB/PAS ? Copies To: ?? Joyce Tapia MD ?? [facility] ?? [address] [facility] [address] ?? [place] [address] ?? [phone] ?? Donald Pa MD ?? [facility] ?? [address] ?? [place] [address] ?? [phone] ----- ------- Signed (signature on file) Ayan Romero MD 07/20/2446 ? ----- ------- ? END OF REPORT ? us Generic External Data Provider LAB BLOOD ORDERAB LES Final Result Performing Organization Address [facility] de Phone Number [facility] [address] [place] [address] [phone] * (ABNORMAL) Glucose, Whole Blood (07/18/2024 7:34 AM EST) Glucose, Whole Blood 141(H) 60 - 115 mg/dL [facility] Comment:METER #: [id number] 07/18/2024 7:34 AM EST 07/18/2024 7:38 AM EST us Generic External Data Provider LAB BLOOD ORDERAB LES Final Result Performing Organization Address [facility] de Phone Number [facility] [address] [place] [address] [phone] documented in this encounter Visit Diagnoses Not on filedocumented in this encounter Care Teams Box Toe Buffer Relationship Specialty Start Date End Date Joyce Tapia MD [address] [place] [address] PCP - General Family Medicine 06/19/12 documented as of this encounter
--- OUTSIDE RECORDS SUMMARY | 2024-08-16 12:03 | XMS_ITS | Encounter Summary ---
Author Organization [employer] Address [address] [facility] [address] 7t [place] [address] Care Team Providers Care Air Quality Technician Name Role Phone Joyce Tapia MD Primary Care Provider [phone] Reason for Visit * Reason Onset Date Comments Med Refill 07/19/2024 Encounter Details Date Type Department Care Team (Late st Contact Info) Description 07/19/2024 Refill [facility] MEDICINE 230 [place] [address] Joyce Tapia MD [address] [place] [address] Status post surgical removal of nail matrix [...] Description 09/06/2024 8:30 AM EST Office Visit [facility] MED & PEDS 505 [place] [address] Joyce Tapia MD 505 [place] [address] 09/17/2024 9:30 AM EDT Medication Management [facility] MED & PEDS 505 [place] [address] Cristal Muhammad PharmD 230 [place] [address] 10/18/2024 10:00 AM EDT Clinical Support [facility] MED & PEDS 505 [place] [address] Katherine Casper, RN 505 [place] [address] documented as of this encounter Visit Diagnoses Diagnosis Status post surgical removal of nail matrix of toe of left foot documented in this encounter Care Teams Air Quality Technician Relationship Specialty Start Date End Date Joyce Tapia MD 230 [place] [address] PCP - General Family Medicine 06/19/12 documented as of this encounter
--- OUTSIDE RECORDS SUMMARY | 2024-08-16 12:03 | XMS_ITS | Encounter Summary ---
Author Organization [employer] Address [address] [facility] 7t [place] [address] Care Team Providers Care Selvage Machine Operator Name Role Phone Joyce Tapia MD Primary Care Provider [phone] Reason for Visit * Reason Onset Date Comments Med Refill 07/25/2024 Encounter Details Date Type Department Care Team (Late st Contact Info) Description 07/25/2024 Refill [facility] MEDICINE 230 [place] [address] Emerson Keith MD 505 [place] [address] Status post surgical removal of nail matrix of toe of left foot Social History Tobacco Use Types Packs/Day Years Used Date Smoking Tobacco: Every Day Cigarettes Passive Smoke Exposure: Never Smokeless Tobacco: Never Alcohol Use Standard Drinks/Week Comments Never 0 (1 standard drink = 0.6 oz pur e alcohol) Housing Stability Answer Date Recorded What is your housing situation today? I have yadria han 01/04/[address] you [...] Description 09/06/2024 8:30 AM EST Office Visit [facility] MED & PEDS 505 [place] [address] Joyce Tapia MD 505 [place] [address] 09/17/2024 9:30 AM EDT Medication Management [facility] MED & PED[facility] 505 [place] [address] Cristal Muhammad, BobD 230 [place] [address] 10/18/2024 10:00 AM EDT Clinical Support [facility] PED[facility] 505 [place] [address] Katherine Casper, MAKEDA 505 [place] [address] documented as of this encounter Visit Diagnoses Diagnosis Status post surgical removal of nail matrix of toe of left foot documented in this encounter Care Teams Selvage Machine Operator Relationship Specialty Start Date End Date Joyce Tapia MD 230 [place] [address] PCP - General Family Medicine 06/19/12 documented as of this encounter
--- OUTSIDE RECORDS SUMMARY | 2024-08-16 12:04 | XMS_ITS | Encounter Summary ---
Author Organization [facility] [employer] Address [address] [facility] [address] 7t [place] [address] Care Team Providers Care Public Health Sanitarian Name Role Phone Joyce Tapia MD Primary Care Provider [phone] Reason for Visit * Reason Onset Date Comments Med Refill 04/11/2024 Encounter Details Date Type Department Care Team ([facility] st Contact Info) Description 04/11/2024 Telephone [facility] CHC MED & PEDS 505 [place], [place] [phone] Joyce Tapia MD 505 [place] [address] Med Refill Social History Tobacco Use Types [...] Miscellaneous Notes * Telephone Encounter - Maxine Tillmna - 04/12/2024 10:42 AM EDT Tc from pt requesting status on med refill. * Telephone Encounter - Maxine Tillman - 04/11/2024 1:29 PM EDT TC from pt requesting medication refill. Medications needing refill : oxyCODONE (Roxicodone) 5 MG immediate release tablet To be sent to: [facility] - [place], [place] - [address] [place] [address] documented in this encounter Plan of Treatment Upcoming Encounters Date Type Department Care Team ([facility] st Contact Info) Description 09/06/2024 8:30 AM EST Office Visit [facility] MED & PEDS 505 [place] [address] Joyce Tapia MD 505 [place] [address] 09/17/2024 9:30 AM EDT Medication Management [facility] MED & PEDS 505 [place] [address] Cristal Muhammad, PharmD 230 [place] [address] 10/18/2024 10:00 AM EDT Clinical Support [facility] MED & PEDS 505 [place] [address] Katherine Casper, RN 505 [place] [address] documented as of this encounter Visit Diagnoses Not on filedocumented in this encounter Care Teams Public Health Sanitarian Relationship Specialty Start Date End Date Joyce Tapia MD [address] [place] [address] PCP - General Family Medicine 06/19/12 documented as of this encounter
--- OUTSIDE RECORDS SUMMARY | 2024-08-16 12:04 | XMS_ITS | Encounter Summary ---
Author Organization [employer] Address [address] [facility] 7t [place] [address] Care Team Providers Care Development Coach Name Role Phone Joyce Tapia MD Primary Care Provider [phone] Reason for Referral * Consultation (Urgent) - Pending Review Specialty Diagnoses / Procedures Referred By Melanie t Referred To Contact Pharmacy Diagnoses Type 2 diabetes mellitus without complication, without long-term current use of insulin (CMS/HCC) Joyce Tapia MD 505 [place] [address] Phone: tel: fax: Referral ID Status Reason Start Date Expiration Date Visits Requested Visits Authorized [id number] Pending Review Consult and Treat 08/02/2024 08/02/2025 6 6 Encounter Details Date Type Department Care Team ([facility] st Contact Info) Description 08/02/2024 Orders Only [facility] CHC MED & PEDS [address] [place] [address] Joyce Tapia MD 505 [place] [address] Type 2 diabetes mellitus without complication, without long-term current use of insulin (CMS/HCC) (Primary Dx) Social History Tobacco Use Types [...] Upcoming Encounters Date Type Department Care Team ([facility] Contact Info) Description 09/06/2024 8:30 AM EST Office Visit [facility] MED & PEDS [address] [place] [address] Joyce Tapia MD 505 [place] [address] 09/17/2024 9:30 AM EDT Medication Management [facility] MED & PEDS [address] [place] [address] Cristal Muhammad, BobD [address] [place] [address] 10/18/2024 10:00 AM EDT Clinical Support [facility] MED & PEDS 505 [place] [address] Katherine Casper, MAKEDA [address] [place] [address] Scheduled Referrals Name Type Priority Associated Diagnoses Orde r Schedule Referral to Pharmacy CDTM Outpatient Referral Urgent Type 2 diabetes mellitus without complication, without long-term current use of insulin (CMS/HCC) Ordered: 08/02/2024 documented as of this encounter Visit Diagnoses Diagnosis Type 2 diabetes mellitus without complication, without long-term current use of insulin (CMS/HCC)- Primary documented in this encounter Care Teams Development Coach Relationship Specialty Start Date End Date Joyce Tapia MD [address] [place] [address] PCP - General Family Medicine 06/19/12 documented as of this encounter
--- OUTSIDE RECORDS SUMMARY | 2024-08-16 12:04 | XMS_ITS | Encounter Summary ---
Author Organization [employer] Address [address] [facility] [address] 7t [place] [address] Care Team Providers Care Equine Dentist Name Role Phone Joyce Tapia MD Primary Care Provider [phone] Reason for Visit * Reason Onset Date Comments Appt 08/09/2024 Encounter Details Date Type Department Care Team ([facility] st Contact Info) Description 08/09/2024 Telephone [facility] MEDICINE 230 [place], [place] [phone] Joyce Tapia MD [address] [place], [place] [phone] Appt Social History Tobacco Use Types Packs/Day Years [...] encounter Miscellaneous Notes * Telephone Encounter - Renee Ramey - 08/09/2024 9:42 AM EST Tc from pt requesting a call back to see if the 08/09 appointment can be changed for a phone visit. [phone] documented in this encounter Plan of Treatment Upcoming Encounters Date Type Department Care Team (Late st Contact Info) Description 09/06/2024 8:30 AM EST Office Visit [facility] MED & PEDS 505 [place] [address] Joyce Tapia MD 505 [place] [address] 09/17/2024 9:30 AM EDT Medication Management [facility] MED & PEDS 505 [place] [address] Cristal Muhammad, BobD 230 [place] [address] 10/18/2024 10:00 AM EDT Clinical Support [facility] MED & PEDS 505 [place] [address] Katherine Casper, MAKEDA [address] [place] [address] documented as of this encounter Visit Diagnoses Not on filedocumented in this encounter Care Teams Equine Dentist Relationship Specialty Start Date End Date Joyce Tapia MD [address] [place] [address] PCP - General Family Medicine 06/19/12 documented as of this encounter
--- OUTSIDE RECORDS SUMMARY | 2024-08-16 12:04 | XMS_ITS | Encounter Summary ---
Author Organization [employer] Address [address] [facility] 7t [place] [address] Care Team Providers Care Slag Motor Operator Name Role Phone Joyce Tapia MD Primary Care Provider [phone] Reason for Visit * Reason Onset Date Comments Med Refill 08/15/2024 Encounter Details Date Type Department Care Team (Late st Contact Info) Description 08/15/[address] [facility] CHC MED & PEDS [address] [place], [place] [phone] Joyce Tapia MD 505 [place] [address] Status post surgical removal of nail matrix [...] Description 09/06/2024 8:30 AM EST Office Visit [facility] MED & PEDS [address] [place] [address] Joyce Taipa MD 505 [place] [address] 09/17/2024 9:30 AM EDT Medication Management [facility] MED & PEDS [address] [place] [address] Cristal Muhammad, BobD 230 [place] [address] 10/18/2024 10:00 AM EDT Clinical Support [facility] MED & PEDS [address] [place] [address] Katherine Casepr, MAKEDA [address] [place] [address] documented as of this encounter Visit Diagnoses Diagnosis Status post surgical removal of nail matrix of toe of left foot documented in this encounter Care Teams Slag Motor Operator Relationship Specialty Start Date End Date Joyce Tapia MD 230 [place] [address] PCP - General Family Medicine 06/19/12 documented as of this encounter
--- OUTSIDE RECORDS SUMMARY | 2024-08-16 12:04 | XMS_ITS | Encounter Summary ---
Author Organization [employer] Address [address] [place] [address] Care Team Providers Care Floral Associate Name Role Phone Joyce Tapia MD Primary Care Provider [phone] Reason for Visit * Reason Onset Date Comments Med Refill 08/15/2024 Encounter Details Date Type Department Care Team (Late st Contact Info) Description 08/15/2024 Refill [facility] MEDICINE [address] [place] [address] Joyce Tapia MD [address] [place] [address] Status post surgical removal of nail matrix [...] encounter Miscellaneous Notes * Telephone Encounter - Vishnu Allred - 08/15/2024 9:56 AM EST TC from pt requesting medication refill. Medications needing refill : oxyCODONE (Roxicodone) 5 MG immediate release tablet To be sent to: [facility]/pharmacy #[id number] NAKUL RYDER - [address] [facility] documented in this encounter Plan of Treatment Upcoming Encounters Date Type Department Care Team (Late st Contact Info) Description 09/06/2024 8:30 AM EST Office Visit [facility] [address] [place] [address] Joyce Tapia MD [address] [place] [address] 09/17/2024 9:30 AM EDT Medication Management [facility] [address] [place] [address] Cristal Muhammad, PharmD [address] [place] [address] 10/18/2024 10:00 AM EDT Clinical Support [facility] [address] [place] [address] Katherine Casper, RN [address] [place] [address] documented as of this encounter Visit Diagnoses Diagnosis Status post surgical removal of nail matrix of toe of left foot documented in this encounter Care Teams Floral Associate Relationship Specialty Start Date End Date Joyce Tapia MD [address] [place] [address] PCP - General Family Medicine 06/19/12 documented as of this encounter
--- OUTSIDE RECORDS SUMMARY | 2024-08-16 12:04 | XMS_ITS | Encounter Summary ---
Author Organization [employer] Address [address] [facility] 7t [place] [address] Care Team Providers Care District Operations Manager Name Role Phone Joyce Tapia MD Primary Care Provider [phone] Reason for Visit * Reason Onset Date Comments Referral 03/09/2023 Encounter Details Date Type Department Care Team ([facility] st Contact Info) Description 03/09/2023 Telephone [facility]S [address] [place], [place] [phone] Joyce Tapia MD [address] [place] [address] Referral Social History Tobacco Use Types Packs/Day [...] wait that long. Please contact pt at [phone] documented in this encounter Plan of Treatment Upcoming Encounters Date Type Department Care Team (Late st Contact Info) Description 09/06/2024 8:30 AM EST Office Visit [facility] [address] [place] [address] Joyce Tapia MD [address] [place] [address] 09/17/2024 9:30 AM EDT Medication Management [facility] [address] [place] [address] Cristal Muhammad, BobD [address] [place] [address] 10/18/2024 10:00 AM EDT Clinical Support [facility] [address] [place] [address] Katherine Casper, RN 505 [place] [address] documented as of this encounter Visit Diagnoses Not on filedocumented in this encounter Care Teams District Operations Manager Relationship Specialty Start Date End Date Joyce Tapia MD [address] [place] [address] PCP - General Family Medicine 06/19/12 documented as of this encounter
--- OUTSIDE RECORDS SUMMARY | 2024-08-16 12:04 | XMS_ITS | Encounter Summary ---
Author Organization [employer] Address [address] [place] [address] Care Team Providers Care Dumper Mold Cleaner Name Role Phone Joyce Tapia MD Primary Care Provider [phone] Reason for Visit * Reason Onset Date Comments Med Refill 04/18/2024 Encounter Details Date Type Department Care Team (Late st Contact Info) Description 04/18/2024 Refill [facility] MEDICINE [address] [place], [place] [phone] Amber Palacio MD [address] [place], [place] [phone] Smoker Social History Tobacco Use Types Packs/Day [...] Description 09/06/2024 8:30 AM EST Office Visit [facility] MED & PEDS [address] [place] [address] Joyce Tapia MD [address] [place] [address] 09/17/2024 9:30 AM EDT Medication Management [facility] MED & PEDS [address] [place] [address] Cristal Muhammad, PharmD [address] [place] [address] 10/18/2024 10:00 AM EDT Clinical Support [facility] MED & PEDS [address] [place] [address] Katherine Casper, RN [address] [place] [address] documented as of this encounter Visit Diagnoses Diagnosis Smoker Tobacco use disorder documented in this encounter Care Teams Dumper Mold Cleaner Relationship Specialty Start Date End Date Joyce Tapia MD [address] [place] [address] PCP - General Family Medicine 06/19/12 documented as of this encounter
--- OUTSIDE RECORDS SUMMARY | 2024-08-16 12:04 | XMS_ITS | Encounter Summary ---
Author Organization [employer] Address [address] 7[address] [place] [address] Care Team Providers Care Welder Plasma Arc Name Role Phone Joyce Tapia MD Primary Care Provider [phone] Reason for Visit * Reason Onset Date Comments Referral 04/25/2023 Encounter Details Date Type Department Care Team ([facility] st Contact Info) Description 04/25/2023 Telephone [facility] MEDICINE [address] [place], [place] [phone] Joyce Tapia MD [address] [place], [place] [phone] Referral Social History Tobacco Use Types Packs/Day [...] a referral for gastroenterology for colonoscopy, @ [address], [facility], [address]. Pt stated has been there before for colonoscopy however has been more than 3 years and will need a new referral. Please contact at [phone] documented in this encounter Plan of Treatment Upcoming Encounters Date Type Department Care Team ([facility] st Contact Info) Description 09/06/2024 8:30 AM EST Office Visit [facility]ED[facility] [address] [place] [address] Joyce Tapia MD [address] [place] [address] 09/17/2024 9:30 AM EDT Medication Management [facility] [address] [place] [address] Cristal Muhammad, PharmD [address] [facility] [place] [address] 10/18/2024 10:00 AM EDT Clinical Support [facility] [address] [place] [address] Katherine Casper, RN [address] [place] [address] documented as of this encounter Visit Diagnoses Not on filedocumented in this encounter Care Teams Welder Plasma Arc Relationship Specialty Start Date End Date Joyce Tapia MD [address] [place] [address] PCP - General Family Medicine 06/19/12 documented as of this encounter
--- OUTSIDE RECORDS SUMMARY | 2024-08-16 12:04 | XMS_ITS | Encounter Summary ---
Author Organization [employer] [facility] Address [address] [facility] 7t [place] [address] Care Team Providers Care Pastry Cook Name Role Phone Joyce Tapia MD Primary Care Provider [phone] Reason for Visit * Reason Comments Med Refill Encounter Details Date Type Department Care Team (Late st Contact Info) Description 11/04/2023 Refill [facility] MED & PEDS [address] [place], [place] [phone] Joyce Tapia MD [address] [place] [address] Status post surgical removal of nail matrix [...] [facility] [address] [place], [place] [phone] Joyce Tapia MD [address] [place] [address] 09/17/2024 9:30 AM EDT Medication Management [facility] MED [facility] PEDS [address] [place] [address] Cristal Muhammad PharmD [address] [place] [address] 10/18/2024 10:00 AM EDT Clinical Support [facility] [address] [place] [address] Katherine Casper, RN [address] [place] [address] documented as of this encounter Visit Diagnoses Diagnosis Status post surgical removal of nail matrix of toe of left foot documented in this encounter Care Teams Pastry Cook Relationship Specialty Start Date End Date Joyce Tapia MD [address] [place] [address] PCP - General Family Medicine 06/19/12 documented as of this encounter
--- OUTSIDE RECORDS SUMMARY | 2024-08-16 12:04 | XMS_ITS | Encounter Summary ---
Author Organization [employer] Address [address] [facility] 7t [place] [address] Care Team Providers Care Conflict Resolution Professional Name Role Phone Joyce Tapia MD Primary Care Provider [phone] Reason for Visit * Reason Onset Date Comments Med Refill 10/24/2023 Encounter Details Date Type Department Care Team ([facility] st Contact Info) Description 10/24/2023 Telephone [facility] MEDICINE [address] [place], [place] [phone] Joyce Tapia MD [address] [place] [address] Med Refill Social History Tobacco Use Types [...] tablet To be sent to: [facility] [place] - [address] [facility] documented in this encounter Plan of Treatment Upcoming Encounters Date Type Department Care Team (Late st Contact Info) Description 09/06/2024 8:30 AM EST Office Visit [facility] [address] [place] [address] Joyce Tapia MD [address] [place] [address] 09/17/2024 9:30 AM EDT Medication Management [facility] [address] [place] [address] Cristal Muhammad PharmD [address] [place] [address] 10/18/2024 10:00 AM EDT Clinical Support [facility] [address] [place] [address] Katherine Casper, MAKEDA [address] [place] [address] documented as of this encounter Visit Diagnoses Not on filedocumented in this encounter Care Teams Conflict Resolution Professional Relationship Specialty Start Date End Date Joyce Tapia MD [address] [place] [address] PCP - General Family Medicine 06/19/12 documented as of this encounter
--- OUTSIDE RECORDS SUMMARY | 2024-08-16 12:04 | XMS_ITS | Clinical Summary ---
Author Organization [facility] Address [address] [place] [address] Care Team Providers Care Scalper Operator Name Role Phone Joyce Tapia MD Primary Care Provider [phone] Allergies Active Allergy Reactions Criticality Noted Date [...] route every day at bedtime 022 Active Elastic Bandages & Supports (Futuro [...] AND BEDTIME 90 tablet 11 024 Active triamcinolone (Kenalog) 0.1 % creamIndication s:Pigmented purpura (CMS/HCC) Apply topically if needed in the morning and at bedtime (pain and swelling). 30 g 2 024 Active FeroSul 325 (65 Fe) MG tablet TAKE ONE TABLET EVERY MORNING 90 tablet 1 024 Active meclizine (Antivert) 25 [...] without long-term current use of insulin (CMS/HCC) TAKE ONE CAPSULE EVERY MORNING 90 capsule 1 024 Active lidocaine (Lidoderm) 5 % patchIndication s:Pain Apply 1 patch topically Once per day. Remove & discard patch within 12 hours or as directed by MD. 30 patch 024 2024 Active sucralfate (Carafate) 1 g tablet Take 1 tablet (1 g) by mouth before breakfast, before lunch, before evening meal, and at bedtime. 120 tablet 11 025 2025 Active zolpidem (Ambien) 5 MG tablet TAKE ONE TABLET AT BEDTIME NEEDED FOR SLEEP 30 tablet 025 Active pantoprazole (ProtoNix) 40 MG EC tablet Take 1 tablet by mouth 2 times daily. Active Blood Glucose Monitoring Suppl (FreeStyle [place] Lite) w/Device kit Test blood sugar as directed 1 kit Active glucose blood (FREESTYLE LITE) test strip Test blood sugar every day as directed 100 each 11 025 2025 Active Lancets 33G misc Test blood sugar every day as directed 100 each Active Blood Pressure kit Check blood pressure daily 1 kit Active Varenicline Tartrate, Starter, 0.5 MG X 11 & 1 MG X 42 tablet therapy pack Take 0.5 mg by mouth Once per day for 3 days, THEN 0.5 mg 2 times daily for 4 days, THEN 1 mg 2 times daily for 21 days. Take as directed per package . 53 each 025 2024 Active atorvastatin (Lipitor) 40 MG tablet Take 1 tablet (40 mg) by mouth Once per day. 90 tablet 3 Active glucagon (Baqsimi Two Pack) 3 MG/DOSE nasal powder Administer 3 mg into affected nostril(s) 1 (one) time if needed for low blood sugar. 1 each Active sertraline (Zoloft) 100 MG tablet TAKE ONE TABLET EVERY NIGHT AT BEDTIME 30 tablet 6 Active oxyCODONE (Roxicodone) 5 MG immediate release tabletIndicatio ns:Status post surgical removal of nail matrix of toe of left foot Take 1 tablet (5 mg) by mouth every 6 (six) hours if needed for severe pain. Do not start before August 16, 2024. 30 tablet Active metFORMIN (Glucophage) 500 MG tablet Take 500 mg by mouth. 022 2024 Discontinued(M ed list cleanup (will not trigger notification to Pharmacy)) sertraline (Zoloft) 100 MG tablet TAKE ONE TABLET EVERY NIGHT AT BEDTIME 30 tablet 6 024 2024 Discontinued varenicline (Chantix) 1 MG tabletIndicatio ns:Smoker TAKE ONE TABLET TWICE DAILY WITH GLASS OF WATER 60 tablet 1 024 2024 Discontinued(D ose adjustment) zolpidem (Ambien) 5 MG tablet TAKE ONE TABLET AT BEDTIME NEEDED FOR SLEEP 30 tablet 024 2024 Discontinued(R eorder (will not trigger notification to Pharmacy)) esomeprazole (NexIUM) [address] capsule Take 1 capsule (20 mg) by mouth before breakfast. Do not open capsule. 30 capsule 11 025 2024 Discontinued(A lternate therapy) oxyCODONE (Roxicodone) 5 MG immediate release tabletIndicatio [...] for severe pain. Do not start before August 09, 2024. 30 tablet 025 2024 Discontinued(R eorder (will not trigger notification to Pharmacy)) Active Problems Problem Noted Date Diagnosed Date GERD (gastroesophageal reflux disease) S/P gastric bypass 08/07/2024 Overview (08/07/2024): 01/2019 Smoker 12/02/2023 Assessment & Plan (12/02/2023 3:26 [...] community supports PLAN: 1. Follow up with [facility]: Not recommended for follow-up 2. Behavioral Recommendations brianna Adler will reach out to [facility] and/or [facility] if further supports needed Status post surgical [...] Encounters Date Type Department Care Team Description 08/15/2024 Refill [facility] [address] [place] [address] Joyce Tapia MD 08/15/2024 Refill [facility] [address] [place] [address] Joyce Tapia MD Status post surgical removal of nail matrix of toe of left foot 08/15/2024 Refill [facility] [address] [place] [address] Joyce Tapia MD Status post surgical removal of nail matrix of toe of left foot 08/10/2024 Refill [facility] [address] [place] [address] Emerson Keith MD 08/09/2024 10:30 AM EST Telemedicine [facility] [address] [place] [address] Katherine Casper, cloud subject matter expert bilateral low back pain with left-sided sciatica 08/09/2024 Telephone [facility] [address] [place] [address] Katherine Casper RN 08/09/2024 Telephone [facility] [address] [place] [address] Joyce Tapia MD Appt 08/09/2024 Travel 08/08/2024 Refill [facility] [address] [place] [address] Joyec Tapia MD Status post surgical removal of nail matrix of toe of left foot 08/07/2024 Travel 08/02/2024 Orders Only [facility] [address] [place] [address] Joyce Tapia MD Type 2 diabetes mellitus without complication, without long-term current use of insulin ([facility]) (Primary Dx) 08/02/2024 Telephone [facility] [address] [place] [address] Joyce Tapia MD Med Refill 08/01/2024 Orders Only GENERIC EXTERNAL DATA DEPARTMENT Provider, Generic External Data 08/01/2024 Refill [facility] [address] [place] [address] Joyce Tapia MD Status post surgical removal of nail matrix of toe of left foot 08/01/2024 Refill [facility] [address] [place] [address] Emerson Keith MD Status post surgical removal of nail matrix of toe of left foot 07/27/2024 Telephone [facility] [address] [place] [address] Joyce Tapia MD Med Refill 07/27/2024 Refill [facility] [address] [place] [address] Emerson Keith MD Status post surgical removal of nail matrix of toe of left foot 07/26/2024 Refill [facility] [address] [place] [address] Joyce Tapia MD Status post surgical removal of nail matrix of toe of left foot 07/25/2024 Telephone [facility] [address] [place] [address] Joyce Tapia MD 07/25/2024 Refill [facility] [address] [place] [address] Emerson Keith MD Status post surgical removal of nail matrix of toe of left foot 07/24/2024 Patient Outreach [facility] [address] [place] [address] Joyce Tapia MD Transition Of Care (Tcm) 07/19/2024 Refill [facility] [address] [place] [address] Joyce Tapia MD 07/19/2024 Refill [facility] [address] [place] [address] Joyce Tapia MD Status post surgical removal of nail matrix of toe of left foot 07/18/2024 Orders Only GENERIC EXTERNAL DATA DEPARTMENT Provider, Generic External Data 07/13/2024 Refill [facility] [address] [place] [address] Joyce Tapia MD 07/13/2024 Refill [facility] [address] [place] [address] Amber Palacio MD Smoker 07/13/2024 Refill [facility] [address] [place] [address] Joyce Tapia MD Status post surgical removal of nail matrix of toe of left foot 07/12/2024 Refill [facility] [address] [place] [address] Joyce Tapia MD Status post surgical removal of nail matrix of toe of left foot 07/09/2024 8:30 AM EST Office Visit [facility] [address] [place] [address] Joyce Tapia MD Gastroesophageal reflux disease without esophagitis (Primary Dx); Type 2 diabetes mellitus without complication, without long-term current use of insulin ([facility]); Rectal bleeding 07/09/2024 Refill [facility] [address] [place] [address] Joyce Tapia MD Status post surgical removal of nail matrix of toe of left foot 07/09/2024 Travel 07/08/2024 Refill [facility] [address] [place] [address] Kassi Johnston, [employer] Status post surgical removal of nail matrix of toe of left foot 07/02/2024 Refill [facility] [address] [place] [address] Kassi Johnston, [employer] Status post surgical removal of nail matrix of toe of left foot 07/02/2024 Telephone [facility] [address] [place] [address] Joyce Tapia MD Med Refill 07/01/2024 Refill [facility] [address] [place] [address] Emerson Keith MD Status post surgical removal of nail matrix of toe of left foot 07/01/2024 Refill [facility] [address] [place] [address] Joyce Tapia MD Pain (Primary Dx) 06/25/2024 Refill [facility] [address] [place] [address] Joyce Tapia MD Status post surgical removal of nail matrix of toe of left foot 06/25/2024 Refill [facility] [address] [place] [address] Joyce Tapia MD Status post surgical removal of nail matrix of toe of left foot 06/23/2024 Refill [facility] [address] [place] [address] Joyce Tapia MD Status post surgical removal of nail matrix of toe of left foot 06/18/2024 Refill [facility] [address] [place] [address] Joyce Tapia MD 06/18/2024 Refill [facility] [address] [place] [address] Joyce Tapia MD Status post surgical removal of nail matrix of toe of left foot 06/14/2024 Refill [facility] [address] [place], [place] [phone] Joyce Tapia MD Type 2 diabetes mellitus without complication, without long-term current use of insulin (CMS/HCC) 06/11/2024 Refill [facility] [address] [place] [address] Joyce Tapia MD Status post surgical removal of nail matrix of toe of left foot 06/10/2024 Refill [facility] [address] [place] [address] Joyce Tapia MD Muscle spasm 06/06/2024 Travel 06/05/2024 Refill [facility] [address] [place] [address] Joyce Tapia MD Status post surgical removal of nail matrix of toe of left foot 06/05/2024 Refill [facility] [address] [place] [address] Joyce Tapia MD Status post surgical removal of nail matrix of toe of left foot 06/04/2024 8:45 AM EST Office Visit [facility] [address] [place] [address] Joyce Tapia MD Acute bilateral low back pain without sciatica (Primary Dx); Type 2 diabetes mellitus without complication, without long-term current use of insulin (CMS/HCC); Encounter for immunization 06/04/2024 Telephone [facility] [address] [place] [address] Joyce Tapia MD pcp other 06/04/2024 Travel 06/03/2024 Orders Only [facility] External Provider, [facility] 05/29/2024 Telephone [facility] [address] [place] [address] Joyce Tapia MD chart prep 05/28/2024 Travel 05/28/2024 Refill [facility] [address] [place] [address] Joyce Tapia MD Status post surgical removal of nail matrix of toe of left foot 05/28/2024 Telephone [facility] [address] [place] [address] Joyce Tapia MD Med Refill 05/28/2024 Refill [facility] [address] [place] [address] Joyce Tapia MD Status post surgical removal of nail matrix of toe of left foot 05/24/2024 Telephone [facility] [address] [place] [address] Joyce Tapia MD ER Follow-up 05/24/2024 Telephone [facility] [address] [facility] [place] [address] Joyce Tapia MD No Show 05/23/2024 Telephone [facility] [place] [address] Joyce Tapia MD Chart Prep 05/22/2024 Patient Outreach [facility] [address] [place] [address] Joyce Tapia MD 05/22/2024 Refill [facility] [address] [place] [address] Joyce Tapia MD 05/22/2024 Orders Only GENERIC EXTERNAL DATA DEPARTMENT Provider, Generic External Data 05/21/2024 10:30 AM EST Telemedicine [facility] [address] [facility] [place] [address] Katherine Casper, cloud subject matter expert bilateral low back pain with left-sided sciatica 05/21/2024 Refill [facility] [address] [place] [address] Joyce Tapia MD 05/21/2024 Orders Only GENERIC EXTERNAL DATA DEPARTMENT Provider, Generic External Data 05/21/2024 Refill [facility] [address] [place] [place] [address] Katherine Casper, RN Status post surgical removal of nail matrix of toe of left foot 05/21/2024 Travel 05/16/2024 Refill [facility] [address] [place] [address] Joyce Tapia MD from Last 3 Months Immunizations Name Administration Dates Next Due Influenza injectable quadriv alent IIV4 with preservative 05/01/2019,04/28/2018,04/19/2016,03/28 Influenza injectable quadriv alent preservative free 03/22/2023,04/05/2022,04/02/2020,07/01 Influenza, IIV3, injectable 03/28/2014 Influenza, Split (incl. corrine fied surface antigen) 04/10/2012 Influenza, seasonal, injecta ble, preservative free 06/04/2024 Moderna Covid-19 Vaccine 12+ 10/16/2020,09/19/19 21 Pfizer Covid-19 Vaccine 12+ 08/07/2024 Pneumococcal Conjugate PCV 20 08/07/2024 Pneumococcal Polysaccharide PPSV23 11/21/2016, Rabies - IM Fibroblast Culture 03/30/2024 Rabies, IM Diploid Cell Culture 03/23/2024,03/19,03/16/2024 Td (adult), unspecified 05/17/2001 Tdap 03/16/2024,04/28/2018 Zoster, Recombinant 11/18/2022,09/02/2022 Social History Tobacco Use Types Packs/Day Years Used Date Smoking Tobacco: Every Day Cigarettes Passive Smoke Exposure: Never Smokeless Tobacco: Never Tobacco Cessation:Ready to Q uit: Yes; Counseling Given: Yes Alcohol Use Standard Drinks/Week Comments Never 0 [...] Sign Reading Time Taken Comments Blood Pressure 104/60 08/07/2024 11:05 AM EST Pulse 86 08/07/2024 11:05 AM EST Temperature 36.1 ??C (97 ??F) [...] Description 09/06/2024 8:30 AM EST Office Visit [facility] [address] [place] [address] Joyce Tapia MD [address] [place] [address] 09/17/2024 9:30 AM EDT Medication Management [facility] [address] [place] [address] Cristal Muhammad, PharmD [address] [place] [address] 10/18/2024 10:00 AM EDT Clinical Support [facility] [address] [place] [address] Katherine Casper, MAKEDA [address] [place] [address] Health Maintenance Due Date Last Done Comments CT Colonography 1960 Depression Screening 1960 FIT DNA/Cologuard 1962 FIT 1962 FOBT 1960 HIV Screening 1960 Sigmoidoscopy 1960 Eye Exam 1972 Alcohol/Substance Use Screening 1974 Hepatitis C Screening 1980 Diabetes: Urine Protein Screening 08/20/2022 08/20/2021 Pap Smear 03/31/2024 03/31/2021 Mammogram 05/28/2024 05/28/2023, 08/04, 08/16/2020, Additional history exists SDOH Screening 01/03/2025 01/04/2024 Diabetes: Hemoglobin A1C 01/06/2025 025, 01/13/2024, 06/03/2023, Additional history exists Colonoscopy 02/20/2025 02/20/2015 Colorectal Cancer Screening 02/20/2025 Diabetes: Foot Exam 07/09/2025 07/09/2024, 07/09/2024, 07/09/2024, Additional history exists Lipid Panel 07/09/2025 07/09/2024 Tobacco Screening 08/07/2025 08/07/2024 Cervical Cancer Screening 03/31/2026 HPV/Cotest 03/31/2026 03/31/2021 DTaP/Tdap/Td Vaccines (3 - Td or Tdap) 03/16/2034 03/16/2024, 04/28/2018, 05/17/2001 RSV Patients and Patients Aged 60 years or older (1 - 1-dose 75+ series) 2037 Zoster Vaccines Completed 11/18/2022, 09/02/2022 Influenza Vaccine Completed 06/04/2024, , 04/05/2022, Additional history exists COVID-19 Vaccine Completed 08/07/2024, 05/2021, 10/16/2020, Additional history exists Pneumococcal Vaccine: 50+ Years Completed 08/07/2024, 11/21/2016, 06/13/2007 HIB Vaccines Aged Out No longer eligi [...] Procedure Name Priority Date/Time Associated Diagnosis Comments CREATININE, SERUM Routine 08/01/2024 10: 49 AM EST UREA NITROGEN (BUN) Routine 08/01/2024 1 0:49 AM EST XR HAND 3+ VIEWS LEFT Routine 07/21/2024 11:57 PM EST HEMATOXYLIN AND EOSIN STAIN Routine 07/18/2024 8:13 AM EST GLUCOSE, WHOLE BLOOD Routine 07/18/2024 7:34 AM EST HEMOGLOBIN A1C Routine 07/09/2024 8:59 AM EST Type 2 diabetes mellitus without complication, without long-term current use of insulin (CMS/HCC) HEPATIC FUNCTION PANEL Routine 8:59 AM EST [...] use of insulin (CMS/HCC) POCT GLUCOSE Routine 06/04/2024 9:10 AM EST Type 2 diabetes mellitus without complication, without long-term current use of insulin ([facility]) XR LUMBAR SPINE 2-3 VIEWS Routine 06/03/2024 [...] AUTO DIFFERENTIAL Routine 05/21/2024 10:43 AM EST BI MAMMOGRAM SCREENING TOMOSYNTHESIS BILATERAL Routine 05/28/2023 8:58 AM EST ZZZ HISTORICAL MICROALBUMIN/CREATININ E RATIO, RANDOM URINE Routine 08/20/2021 8:20 AM EST HPV MRNA E6/E7 Routine 03/31/2021 9:06 AM EDT THINPREP PAP Routine 03/31/2021 9:06 AM EDT HM COLONOSCOPY Routine 02/20/2015 from Last 3 Months or Most Recently Relevant to Health Maintenance Results * Creatinine, Serum (08/01/2024 10:49 AM EST) Creatinine, Serum 0.74 0.5 - 1.4 mg/dL [facility] Estimated Glomerular Filt Rate >60 [facility] Comment:Chronic Kidney Disea se: Estimated GFR < 60 mL/min/1.45g2Phcxgl Kidney Disease: Estimated GFR < 15 mL/min/1.73m2 08/01/2024 10:4 9 AM EST 08/01/2024 10:49 AM EST us Generic External Data Provider LAB BLOOD ORDERAB LES Final Result Performing Organization Address [facility] Co de Phone Number [facility] [address] [place] [address] [phone] * BUN (Blood Urea Nitrogen) (08/01/2024 10:49 AM EST) Urea Nitrogen (BUN) 13 9 - 16 mg/dL [facility] 08/01/2024 10:4 9 AM EST 08/01/2024 10:49 AM EST us Generic External Data Provider LAB BLOOD ORDERAB LES Final Result Performing Organization Address [facility] de Phone Number [facility] [address] [place] [address] [phone] * XR Hand 3+ Views Left (07/21/2024 11:57 PM EST) Anatomical Region Laterality Modality Upper Extremities, Hand Left Radiogra phic Imaging 07/21/2024 11:5 7 PM EST Narrative 07/21/2024 11:59 PM EST ? [facility] ?[address] ?[place] [address] ?XRay Report ? Signed ? Patient: Grover,Nayely ?MR#: [id number] ?? 541 ? : 1960 ?Acct:[id number] ? Age/Sex: 63 / F ?ADM Date: 01/18/25 ? Loc: HO.ED ? Attending Dr: ? Ordering Physician: Janel Pitts MD ?? Date of Service: 07/21/24 ?? Procedure(s): XR hand LT min 3V ?? Accession Number(s): [id number] ? cc: Joyce Tapia MD; Janel Pitts [...] ? DD/ 56 ? TD/TT: 07/21/242356 ? Lead Massage Therapist: ? Procedure Note Donotrobbieinterpreter, Image - 07/22/[address] [address] XRay Report Signed Patient: Nayely GroverMR#: [id number] 541 : 1960Acct:[id number] Age/Sex: 63 / FADM Date: 07/21/24 Loc: HO.ED Attending Dr: Ordering Physician: Janel Pitts MD Date of Service: 07/21/24 Procedure(s): XR hand LT min 3V Accession Number(s): [id number] cc: Joyce Tapia MD; Janel Pitts MD [...] in OV> 07/21/242357 DD/ 56 TD/TT: 07/21/242356 Lead Massage Therapist: [facility] External Provider IMG XR PROCEDURES Edited Result - Final * Hematoxylin and Eosin Stain (07/18/2024 8:13 AM EST) 07/18/2024 8:13 AM EST 07/18/2024 9:01 AM EST [facility] - 07/20/2024 9:46 AM EST ----- ------- Name: Nayely Grover ?Age/Sex: 63/F ? : 1960 Unit#: [id number] ?? Attend Dr: Donald Pa MD ?Re07/18/24 ?Status: DEP SDC ? Location: HO.SSS ?Disch: ? ----- ------- SPEC : [id number] ?RECD: 07/18/24 ? STATUS: ??SOUT ? REQ NUM: [id number] ? JOSE: 07/18/24 ? SUBM DR: Donald [...] Grover ?Age/Sex: 63/F ? : 1960 Unit#: [id number] ?? Attend Dr: Donald Pa MD ?Re07/18/24 ?Status: DEP SDC ? Location: HO.SSS ?Disch: ? ----- ------- SPEC : [id number] ?RECD: 07/18/24 ? STATUS: ??SOUT ? REQ NUM: [id number] ? JOSE: 07/18/24 ? SUBM DR: Donald Pa MD ? ENTERED: ??07/18/24 ?SP TYPE: Surgical ? OTHR DR: Joyce Tapia MD ? ORDERED: ??HE Stain/9, Gross Micro L4/3, IHC, Special st. 2, H. pylori, AB/PAS ? Copies To: ?? Joyce Tapia MD ?? [facility] ?? [address] ?? [place] [address] ?? [phone] ?? Donald Pa MD ?? [facility] ?? [address] ?? [place] [address] ?? [phone] ----- ------- Signed (signature on file) Ayan Romero MD 07/20/24 0946 ? ----- ------- ? END OF REPORT ? us Generic External Data Provider LAB BLOOD ORDERAB LES Final Result [facility] [address] [facility] [address] [phone] * (ABNORMAL) Glucose, Whole Blood (07/18/2024 7:34 AM EST) Glucose, Whole Blood 141(H) 60 - 115 mg/dL [facility] Comment:METER #: [id number] 07/18/2024 7:34 AM EST 07/18/2024 7:38 AM EST us Generic External Data Provider LAB BLOOD ORDERAB LES Final Result Performing Organization Address [facility] Co de Phone Number [facility] [address] [place] [phone] * (ABNORMAL) Hemoglobin A1c (07/09/2024 8:59 AM EST) Hemoglobin A1c 6.5(H) <6.0 % [facility] Comment:Hemoglobin A1C Refer ence Range Adults: 4.8 - 6.0 % Non diabetic: < 6.0 % Goal: < 7.0 %Additional Action Suggested: > 8.0 %Note: Hemoglobin A1c results are invalid for patients with abnormal amounts of HbF. Blood transfusions may impact the HbA1c concentration in the patient sample. Estimated Average Glucose 140 mg/dL [facility] Comment:eAG = Estimated ave rage glucose which is %A1C expressed asaverage glucose, using the formula of the A4D-AdpjqipGnzzbiy Glucose study (ADAG), Diabetes Care, Vol.31,#8,Feb. 2007 Blood Venous blood specimen / Unknown 07/09/2024 8:59 AM EST 07/09/2024 2:20 PM EST us Joyce Tapia MD LAB BLOOD ORDERABLES Final Resul t Performing Organization Address City/[facility] Co de Phone Number [facility] [address] [place] [phone] * Hepatic Function Panel (07/09/2024 8:59 AM EST) Bilirubin, Total 0.4 0.0 - 1.0 mg/dL [facility] Bilirubin, Direct 0.2 0.0 - 0.5 mg/dL [facility] Aspartate Amino Transferase 24 5 - 31 U/L [facility] Alanine Aminotransferase 23 0 - 31 U/L [facility] Total Protein 6.5 6.5 - 8.0 g/dL [facility] Albumin Level 3.8 3.5 - 5.0 g/dL [facility] Alkaline Phosphatase 79 39 - 117 U/L [facility] Blood Venous blood specimen / Unknown 07/09/2024 8:59 AM EST 07/09/2024 2:20 PM EST Joyce Tapia MD LAB BLOOD ORDERABLES Final Resul t Performing Organization Address [facility] de Phone Number [facility] [address] [place] [phone] * (ABNORMAL) Lipid Panel, Standard (07/09/2024 8:59 AM EST) Triglycerides 86 <150 mg/dL [facility] Comment:Desirable Triglyceri de: less than 150 mg/dLBorderline High Triglyceride 150-199 mg/dLHigh Triglyceride: 200-499 mg/dLVery High Triglyceride: greater than or equal to 5OO mg/dL Cholesterol 181 <200 mg/dL [facility] Comment:Desirable Cholestero l: less than 200 mg/dLBorderline High Cholesterol: 200-239 mg/dLHigh Cholesterol: greater than 239 mg/dL LDL Cholesterol Calculated 100(H) <100 mg/dL [facility] Comment:Desirable LDL: less than 100 mg/dLNear Optimal/Above Optimal LDL: 110- 129 mg/dLBorderline High LDL: 130-159 mg/dLHigh LDL: 160-189 mg/dLVery High LDL: greater than or equal to 190 mg/dL HDL Cholesterol 64 >40 mg/dL [facility] Comment:Desirable HDL: great er than 40 mg/dL Note: This HDL assay may give artificially low results in patients with liver disease. Blood Venous blood specimen / Unknown 07/09/2024 8:59 AM EST 07/09/2024 2:20 PM EST Joyce Tapia MD LAB BLOOD ORDERABLES Final Resul t Performing Organization Address [facility] Co de Phone Number [facility] [address] [place] [phone] * (ABNORMAL) Basic Metabolic Panel (07/09/2024 8:59 AM EST) Sodium 142 135 - 145 mmol/L [facility] Potassium 3.7 3.3 - 5.1 mmol/L [facility] Chloride 108 96 - 108 mmol/L [facility] Carbon Dioxide 27 22 - 29 mmol/L [facility] Anion Gap 11(L) 12 - 20 [facility] Urea Nitrogen (BUN) 14 9 - 16 mg/dL [facility] Creatinine, Serum 0.73 0.5 - 1.4 mg/dL [facility] Estimated Glomerular Filt Rate >60 [facility] Comment:Chronic Kidney Disea se: Estimated GFR < 60 mL/min/1.70g0Ehqtvm Kidney Disease: Estimated GFR < 15 mL/min/1.73m2 Glucose 142(H) 60 - 115 mg/dL [facility] Calcium 8.8 8.4 - 10.2 mg/dL [facility] Blood Venous blood specimen / Unknown 07/09/2024 8:59 AM EST 07/09/2024 2:20 PM EST us Joyce Tapia MD LAB BLOOD ORDERABLES Final Resul t [facility] [address] [place] [address] [phone] * POCT Glucose (07/09/2024 8:41 AM [...] EST Narrative 06/03/2024 12:22 PM EST ? [facility] ?[address] ?[place] [address] ?XRay Report ? Signed ? Patient: Grover,Nayely ?MR#: [id number] ?? 541 ? : 1960 ?Acct:[id number] ? Age/Sex: 63 / F ?ADM Date: 06/03/24 ? Loc: HO.ED ? Attending Dr: ? Ordering Physician: Generic ED Physician ?? Date of Service: 06/03/24 ?? Procedure(s): XR lumbar spine 2-3V ?? Accession Number(s): [id number] ? cc: Generic ED Physician; Joyce Tapia [...] as detailed. ? Electronically signed by: ??Jer Achanaril MD ??06/03/2024 12:20 PM EST ?? RP ? Dictated By: ?Achanaril,Jer ? Signed By: ?<Electronically signed by Jer Achanaril in OV> ?06/03/24 1220 ? DD/ 1115 ? TD/TT: 06/03/24 1123 ? Lead Massage Therapist: ? Procedure Note Javed, Image - 06/03/[address] [place] [address] XRay Report Signed Patient: Nayely GroverMR#: [id number] 541 : 1960Acct:[id number] Age/Sex: 63 / FADM Date: 06/03/24 Loc: HO.ED Attending Dr: Ordering Physician: Generic ED Physician Date of Service: 06/03/24 Procedure(s): XR lumbar spine 2-3V Accession Number(s): [id number] cc: Generic ED Physician; Joyce Tapia MD [...] by: Jer Engel MD 06/03/2024 12:20 PM EST Dictated By: Jer Engel Signed By: <Electronically signed by Jer Engel in OV> 06/03/24 1220 DD/ 1115 TD/TT: 06/03/24 1123 Lead Massage Therapist: [facility] External Provider IMG XR PROCEDURES Edited Result - Final * (ABNORMAL) Urinalysis, Complete, with Reflex to Culture (05/22/2024 5:33 AM EST) Color Urine Dark Yellow [facility] Appearance Urine Clear [facility] PH 5.5 5.0 - 9.0 [facility] Glucose Urine UA Negative Negative mg/dL [facility] Urine Blood Negative Negative [facility] Specific [place] - Urine >=1.030(H) 1.005 - 1.025 [facility] Urine Protein Negative Neg-Trace mg/dL [facility] Urine Ketones Negative Negative mg/dL [facility] Nitrite Urine Negative Negative [facility] Leukocyte Esterase Urine Negative Negative [facility] RBC Urine 0-2 0 - 2 /HPF [facility] Urine WBC 0-5 0 - 5 /HPF [facility] Urine Squamous Epithelial Cell 0-2 0 - 2 /HPF [facility] Urine Bacteria None Seen None Seen [facility] Hyaline Casts, Urine 0-2 0 - 2 /LPF [facility] 05/22/2024 5:33 AM EST 05/22/2024 5:47 AM EST Narrative [facility] - 05/22/2024 5:54 AM EST [id number], Clean Catch us Generic External Data Provider LAB URINE ORDERAB LES Final Result [facility] [address] [place] [phone] * CBC auto differential (05/22/2024 5:33 AM EST) Only the most recent of2 resultswithin the time period is included. White Blood Count 7.2 4.8 - 10.8 X10*3/uL [facility] Red Blood Count 4.25 4.20 - 5.50 X10*6/uL [facility] Hemoglobin 12.8 12.0 - 16.0 g/dl [facility] Hematocrit 37.8 37.0 - 47.0 % [facility] Mean Corpuscular Volume 88.9 80.0 - 98.0 fL [facility] Mean Corpuscular Hemoglobin 30.1 27.0 - 33.0 pg [facility] Mean Corpuscular HGB Conc 33.9 31.0 - 35.0 g/dl [facility] Red Cell Distribution Width 12.8 11.0 - 16.0 % [facility] Platelet Count 182 160 - 400 X10*3/uL [facility] Mean Platelet Volume 10.1 9.4 - 12.3 fL [facility] Neutrophils Percent Auto 54.4 45 - 73 % [facility] Imm Gran Pct Auto 0.1 0.0 - 0.4 % [facility] Lymphocytes Percent Auto 35.8 20 - 40 % [facility] Monocytes Percent Auto 6.1 2 - 11 % [facility] Eosinophils Percent Auto 3.3 0 - 4 % [facility] Basophils Percent Auto 0.3 0 - 2 % [facility] NRBC Pct Auto 0.0 0.0 - 0.2 /100WBC [facility] Neutrophils Absolute Auto 3.9 2.0 - 8.3 x10*3/uL [facility] Imm Gran Abs Auto 0.01 0.00 - 0.03 X10*3/uL [facility] Lymphocytes Absolute Auto 2.6 1.2 - 4.9 X10*3/uL [facility] Monocytes Absolute Auto 0.4 0.1 - 1.2 X10*3/uL [facility] Eosinophils Absolute Auto 0.2 0.0 - 0.4 X10*3/uL [facility] Basophils Absolute Auto 0.0 0.0 - 0.2 X10*3/uL [facility] NRBC Abs Auto 0.000 0.0 - 0.012 X10*3/uL [facility] 05/22/2024 5:33 AM EST 05/22/2024 5:47 AM EST us Generic External Data Provider LAB BLOOD ORDERAB LES Final Result [facility] [address] [place] [address] [phone] * (ABNORMAL) Comprehensive Metabolic Panel (05/22/2024 5:33 AM EST) Only the most recent of2 resultswithin the time period is included. Sodium 140 135 - 145 mmol/L [facility] Potassium 3.6 3.3 - 5.1 mmol/L [facility] Chloride 106 96 - 108 mmol/L [facility] Carbon Dioxide 27 22 - 29 mmol/L [facility] Anion Gap 11(L) 12 - 20 [facility] Urea Nitrogen (BUN) 17(H) 9 - 16 mg/dL [facility] Creatinine, Serum 0.78 0.5 - 1.4 mg/dL [facility] Creatinine Clr Calc Pharmacy 73.6 [facility] Comment:Provided height and weight: 170.18 cm,70.4 kg.eGFR (calculated from the MDRD study equation) and eCrCl(calculated from the Cockcroft-Gault equation) are based ondifferent parameters and may not yield comparable results.If eCrCl result is absurd, please check patient'sheight/weight. Estimated Glomerular Filt Rate >60 [facility] Comment:Chronic Kidney Disea se: Estimated GFR < 60 mL/min/1.28a2Dpbueh Kidney Disease: Estimated GFR < 15 mL/min/1.73m2 Glucose 204(H) 60 - 115 mg/dL [facility] Calcium 8.4 8.4 - 10.2 mg/dL [facility] Bilirubin, Total 0.3 0.0 - 1.0 mg/dL [facility] Aspartate Amino Transferase 16 5 - 31 U/L [facility] Alanine Aminotransferase 21 0 - 31 U/L [facility] Total Protein 6.2(L) 6.5 - 8.0 g/dL [facility] Albumin Level 3.6 3.5 - 5.0 g/dL [facility] Alkaline Phosphatase 76 39 - 117 U/L [facility] 05/22/2024 5:33 AM EST 05/22/2024 5:47 AM EST us Generic External Data Provider LAB BLOOD ORDERAB LES Final Result [facility] [address] [place] [address] [phone] * XR Pelvis 1-2 Views (05/21/2024 10:58 AM EST) Anatomical Region Laterality Modality Body, Pelvis Radiographic Yovana ging 05/21/2024 10:5 8 AM EST Narrative 07/17/2024 9:08 AM EST ? [facility] ?[address] ?[place] [address] ?XRay Report ? Signed ? Patient: Grover,Nayely ?MR#: [id number] ?? 541 ? : 1960 ?Acct:[id number] ? Age/Sex: 63 / F ?ADM Date: 05/21/24 ? Loc: HO.XRAY ? Attending Dr: Dex Quintana MD ? Ordering Physician: Dex Quintana MD ?? Date of Service: 05/21/24 ?? Procedure(s): XR pelvis 1-2V ?? Accession Number(s): [id number] ? cc: Dex Quintana MD; Joyce Tapia [...] signed by Link Martin MD in OV> ?07/17/24 0905 ? DD/ 1058 ? TD/TT: 05/21/24 1058 ? Lead Massage Therapist: WG ? Procedure Note Donotuseinterpreter, Image - 07/17/[address] [address] XRay Report Signed Patient: Nayely GroverMR#: [id number] 541 : 1960Acct:[id number] Age/Sex: 63 / FADM Date: 05/21/24 Loc: HO.XRAY Attending Dr: Dex Quintana MD Ordering Physician: Dex Quintana MD Date of Service: 05/21/24 Procedure(s): XR pelvis 1-2V Accession Number(s): [id number] cc: Dex Quintana MD; Joyce Tapia MD [...] 07/17/24 0905 DD/ 1058 TD/TT: 05/21/24 1058 Lead Massage Therapist: TAE [facility] External Provider IMG XR PROCEDURES Final Result * BI Mammogram Screening Tomosynthesis Bilateral (05/28/2023 8:58 AM EST) Anatomical Region Laterality Modality Breast Bilateral Mammography 05/28/2023 8:58 AM EST Narrative 06/03/2023 8:41 AM EST ? [facility] ? [address] ?[place] [address] ? Mammography Report ? Signed ? Patient: Grover,Nayely ?MR#: [id number] ?? 541 ? : 1960 ?Acct:[id number] ? Age/Sex: 62 / F ?ADM Date: 05/28/23 ? Loc: HO.MAMMO ? Attending Dr: Joyce Tapia MD ? Ordering Physician: Joyce Tapia MD ?Results: 1Negati ?? ve ? Date of Service: 05/28/23 ?Follow Up: 1 Year From Orig ?? inal Mammogram ? Procedure(s): MM tomosynthesis screening BI ?? Accession Number(s): [id number] ? cc: Joyce Tapia MD ? EXAMINATION: [...] by Radha Colon MD in OV> ? 06/03/23836 ? DD/ 0858 ? TD/TT: ? Lead Massage Therapist: ? Procedure Note Donbernadetteter, Image - 06/03/2023 [facility] [address] [place] [address] Mammography Report Signed Patient: Nayely GroverMR#: [id number] 541 : 1960Acct:[id number] Age/Sex: 62 / FADM Date: 05/28/23 Loc: HO.MAMMO Attending Dr: Joyce Tapia MD Ordering Physician: Joyce Tapia MDResults: 1Negati ve Date of Service: 05/28/23Follow Up: 1 Year From Orig inal Mammogram Procedure(s): MM tomosynthesis screening BI Accession Number(s): [id number] cc: Joyce Tapia MD EXAMINATION: MM SCREENING [...] signed by Radha Colon MD in OV> 06/03/2337 DD/ TD/TT: Lead Massage Therapist: Joyce Tapia MD IMG BI PROCEDURES Final Result * MICROALBUMIN/CREATININE RATIO, RANDOM URINE (08/20/2021 8:20 AM EST) Creatinine Urine 109.98 mg/dL [facility] Microalbum/Creati nine Ratio Ur TNP ug/mg cr [facility] Comment: Unable to calculate albumin/creatinine ratio due to low microalbumin or creatinine result. Microalbumin Urine <5.0 mg/L [facility] 08/20/2021 8:20 AM EST Historical Provider HISTORICAL/NON ORDERABLE LABS Final Result [facility] [address] * THINPREP PAP (03/31/2021 9:06 AM EDT) [...] historic and ?? current clinical information. ?? Corporate Strategy Associate : SEE COMMENT [facility] Comment: JXM, CT(ASCP) CT screening location: [address] ??[address] Interpretation/R esult: Negative for intraepithelial lesion or malignancy. [facility] LMP: NONE GIVEN [facility] Prev. BX: NONE GIVEN [facility] Prev. PAP: 12/2016 NIL/NEG [facility] SOURCE: None given [facility] Statement Of Adequacy: SEE COMMENT [facility] Comment: Satisfactory for evaluation. Endocervical/transformation zone component absent. Age and/or menstrual status not provided 03/31/2021 9:06 AM EDT Noa MARINO LAB PATHOLOGY ORDERABLES Final Result Performing Organization Address [facility] Co de Phone Number [facility] [address] [place] [address], * HPV mRNA E6/E7 (03/31/2021 9:06 AM EDT) Pathologist [facility] HPV nRNA E6/E7 Not Detected Not Detected [facility] Comment: Methodology: Aircraft Worker-Mediated Amplification This assay detects E6/E7 viral messenger RNA (mRNA) from 14 high-risk HPV types (16,18,31,33,35,39,45,51,52,56,58,59,66,68). ? The analytical performance characteristics of this assay have been determined by [employer]. The modifications have not been cleared or approved by the FDA. This assay has been validated pursuant to the CLIA regulations and is used for clinical purposes. ?? For additional information, please refer to http://education.[employer]faq/CDA027a8 (This link if provided for information/ educational purposes only.) 03/31/2021 9:06 AM EDT Noa MARINO LAB BLOOD ORDERABLES Patt l Result Performing Organization Address [facility] Co de Phone Number [facility] [address] [place] [address], [place] * Hm Colonoscopy (02/20/2015) Pathologist [facility] Colonoscopy Normal Normal Narrative Zohra Benavidez - 02/20/2015 Repeat in 10 year us Historical Provider HEALTH MAINTENANCE Final Result from Last 3 Months or Most Recently Relevant to Health Maintenance Insurance [id number] Care Teams Scalper Operator Relationship Specialty Start Date End Date Joyce Tapia MD [address] [place] [address] PCP - General Family Medicine 06/19/12
--- OUTSIDE RECORDS SUMMARY | 2024-08-16 12:04 | XMS_ITS | Encounter Summary ---
Author Organization [employer] Address [address] [place] [address] Care Team Providers Care Town Clerk Name Role Phone Joyce Tapia MD Primary Care Provider [phone] Reason for Visit * Reason Onset Date Comments Med Refill 08/02/2024 Encounter Details Date Type Department Care Team (Late st Contact Info) Description 08/02/2024 Telephone [facility] MEDICINE [address] [place], [place] [phone] Joyce Tapia MD [address] [place], [place] [phone] Med Refill Social History Tobacco Use Types [...] encounter Miscellaneous Notes * Telephone Encounter - Katherine Casper RN - 08/02/2024 9:25 AM EST Mew queued to covering provider 08/01/24 * Telephone Encounter - Sha Harris - 08/02/2024 8:37 AM EST TC from pt requesting medication refill. Medications needing refill : oxyCODONE (Roxicodone) 5 MG immediate release tablet To be sent to: [facility]/pharmacy #[id number] N[place] RYDER - [address] [facility] documented in this encounter Plan of Treatment Upcoming Encounters Date Type Department Care Team ([facility] st Contact Info) Description 09/06/2024 8:30 AM EST Office Visit [facility] & [facility]EDS [address] [place] [address] Joyce Tapia MD [address] [place] [address] 09/17/2024 9:30 AM EDT Medication Management [facility] [address] [place] [address] Cristal Muhammad, PharmD [address] [place] [address] 10/18/2024 10:00 AM EDT Clinical Support [facility] [address] [place] [address] Katherine Casper, RN [address] [place] [address] documented as of this encounter Visit Diagnoses Not on filedocumented in this encounter Care Teams Town Clerk Relationship Specialty Start Date End Date Joyce Tapia MD [address] [place] [address] PCP - General Family Medicine 06/19/12 documented as of this encounter
--- OUTSIDE RECORDS SUMMARY | 2024-08-16 12:04 | XMS_ITS | Encounter Summary ---
Author Organization [employer] Address [address] [facility] 7t [place] [address] Care Team Providers Care Pull Through Hooker Name Role Phone Joyce Tapia MD Primary Care Provider [phone] Reason for Visit * Reason Onset Date Comments Med Refill 08/08/2024 Encounter Details Date Type Department Care Team (Late st Contact Info) Description 08/08/2024 Refill [facility] MED & PEDS [address] [place], [place] [phone] Joyce Tapia MD [address] [place] [address] Status post surgical removal of nail matrix [...] * Telephone Encounter - Alma Naik - 08/08/2024 9:42 AM EST oxyCODONE (Roxicodone) 5 MG documented in this encounter Plan of Treatment Upcoming Encounters Date Type Department Care Team (Late st Contact Info) Description 09/06/2024 8:30 AM EST Office Visit [facility] PEDS [address] [place] [address] Joyce Tapia MD [address] [place] [address] 09/17/2024 9:30 AM EDT Medication Management [facility] PED[facility] [address] [place] [address] Cristal Muhammad PharmD [address] [place] [address] 10/18/2024 10:00 AM EDT Clinical Support [facility] MED & PEDS [address] [place] [address] Katherine Casper RN [address] [place] [address] documented as of this encounter Visit Diagnoses Diagnosis Status post surgical removal of nail matrix of toe of left foot documented in this encounter Care Teams Pull Through Hooker Relationship Specialty Start Date End Date Joyce Tapia MD [address] [place] [phone] PCP - General Family Medicine 06/19/12 documented as of this encounter
--- OUTSIDE RECORDS SUMMARY | 2024-08-16 12:04 | XMS_ITS | Encounter Summary ---
Author Organization [employer] Address [address] [place] [address] Care Team Providers Care Pl Sql Programmer Name Role Phone Joyce Tapia MD Primary Care Provider [phone] Reason for Visit * Reason Onset Date Comments Med Refill 04/25/2024 Encounter Details Date Type Department Care Team ([facility] st Contact Info) Description 04/25/2024 Telephone [facility] MEDICINE [address] [place] [address] Joyce Tapia MD [address] [place], [place] [phone] Med Refill Social History Tobacco Use Types [...] (Roxicodone) 5 MG To be sent to: [facility] documented in this encounter Plan of Treatment Upcoming Encounters Date Type Department Care Team (Late st Contact Info) Description 09/06/2024 8:30 AM EST Office Visit [facility] MED & PEDS [address] [place] [address] Joyce Tapia MD [address] [place] [address] 09/17/2024 9:30 AM EDT Medication Management [facility] MED & PEDS [address] [place] [address] Cristal Muhammad, PharmD [address] [place] [address] 10/18/2024 10:00 AM EDT Clinical Support [facility] MED & PEDS [address] [place] [address] Katherine Casper, MAKEDA [address] [place] [address] documented as of this encounter Visit Diagnoses Not on filedocumented in this encounter Care Teams Pl Sql Programmer Relationship Specialty Start Date End Date Joyce Tapia MD [address] [place] [address] PCP - General Family Medicine 06/19/12 documented as of this encounter
--- OUTSIDE RECORDS SUMMARY | 2024-08-16 12:04 | XMS_ITS | Encounter Summary ---
Author Organization [employer] Address [address] 7[address] [place] [address] Care Team Providers Care Cycle Liaison Name Role Phone Joyce Tapia MD Primary Care Provider [phone] Reason for Visit * Reason Onset Date Comments Med Refill 04/19/2024 Encounter Details Date Type Department Care Team (Late st Contact Info) Description 04/19/2024 Refill [facility] MEDICINE [address] [place] [address] Joyce Tapia MD [address] [place] [address] Status post surgical removal of nail matrix [...] Description 09/06/2024 8:30 AM EST Office Visit [facility] MED & PEDS [address] [place] [address] Joyce Tapia MD [address] [place] [address] 09/17/2024 9:30 AM EDT Medication Management [facility] MED & PEDS [address] [place] [address] Cristal Muhammad PharmD [address] [place] [address] 10/18/2024 10:00 AM EDT Clinical Support [facility] MED & PEDS [address] [place] [address] Katherine Casper, RN [address] [place] [address] documented as of this encounter Visit Diagnoses Diagnosis Status post surgical removal of nail matrix of toe of left foot documented in this encounter Care Teams Cycle Liaison Relationship Specialty Start Date End Date Joyce Tapia MD [address] [place] [address] PCP - General Family Medicine 06/19/12 documented as of this encounter
--- OUTSIDE RECORDS SUMMARY | 2024-08-16 12:04 | XMS_ITS | Encounter Summary ---
Author Organization [employer] Address [address] [place] [address] Care Team Providers Care Aerial Applicator Pilot Name Role Phone Joyce Tapia MD Primary Care Provider [phone] Reason for Visit * Reason Onset Date Comments Med Refill 05/08/2024 Encounter Details Date Type Department Care Team (Late st Contact Info) Description 05/08/2024 Refill [facility] MEDICINE [address] [place] [address] Joyce Tapia MD [address] [place] [address] Muscle spasm Social History Tobacco Use Types [...] Description 09/06/2024 8:30 AM EST Office Visit [facility] MED & PEDS [address] [place] [address] Joyce Tapia MD [address] [place] [address] 09/17/2024 9:30 AM EDT Medication Management [facility] MED & PEDS [address] [place] [address] Cristal Muhammad, PharmD [address] [place] [address] 10/18/2024 10:00 AM EDT Clinical Support [facility] MED & PEDS [address] [place] [address] Katherine Casper, RN [address] [place] [address] documented as of this encounter Visit Diagnoses Diagnosis Muscle spasm Spasm of muscle documented in this encounter Care Teams Aerial Applicator Pilot Relationship Specialty Start Date End Date Joyce Tapia MD [address] [place] [address] PCP - General Family Medicine 06/19/12 documented as of this encounter
--- OUTSIDE RECORDS SUMMARY | 2024-08-16 12:04 | XMS_ITS ---
Author Organization [employer] Address [address] [place] [address] 7 [place] [address] Care Team Providers Care Hospice Admitting Clerk Name Role Phone Joyce Tapia MD Primary Care Provider [phone] [employer]EDGE [employer]AT CAPTAIN Status:Enrolled (Active) Start date:10/22/2022 Enrollment date:10/22/2022 Case Team Name Relationship Phone Katherine Casper RN Registered Nurse(Responsible S taff) Continued Care and Services Coordination
--- OUTSIDE RECORDS SUMMARY | 2024-08-16 12:04 | XMS_ITS | Encounter Summary ---
Author Organization [employer] [facility] Address [address] [facility] [address]t [place] [address] Care Team Providers Care Plating Inspector Name Role Phone Joyce Tapia MD Primary Care Provider [phone] Reason for Visit * Reason Comments Med Refill Encounter Details Date Type Department Care Team (Late st Contact Info) Description 10/24/2023 Refill [facility] MED[facility] [address] [place], [place] [phone] Joyce Tapia MD [address] [place] [address] Status post surgical removal of nail matrix [...] Description 09/06/2024 8:30 AM EST Office Visit [facility] MED & PEDS [address] [place], [place] [phone] Joyce Tapia MD [address] [place] [address] 09/17/2024 9:30 AM EDT Medication Management [facility] MED & PEDS [address] [place] [address] Cristal Muhammad PharmD [address] [place] [address] 10/18/2024 10:00 AM EDT Clinical Support [facility] MED & PEDS [address] [place] [address] Katherine Casper, RN [address] [place] [address] documented as of this encounter Visit Diagnoses Diagnosis Status post surgical removal of nail matrix of toe of left foot documented in this encounter Care Teams Plating Inspector Relationship Specialty Start Date End Date Joyce Tapia MD [address] [place] [address] PCP - General Family Medicine 06/19/12 documented as of this encounter
--- OUTSIDE RECORDS SUMMARY | 2024-08-16 12:04 | XMS_ITS | Encounter Summary ---
Author Organization [employer] Address [address] 7t [place] [address] Care Team Providers Care Continuous Improvement Black Belt Name Role Phone Joyce Tapia MD Primary Care Provider [phone] Reason for Visit * Reason Comments Med Refill Encounter Details Date Type Department Care Team ([facility] st Contact Info) Description 04/12/2024 Refill [facility] MED & PEDS [address] [place], [place] [phone] Joyce Tapia MD 505 [place] [address] Status post surgical removal of nail matrix [...] 8:30 AM EST Office Visit [facility] MED & PEDS [address] [place] [address] Joyce Tapia MD 505 [place] [address] 09/17/2024 9:30 AM EDT Medication Management [facility] MED & PEDS [address] [place] [address] Cristal Muhammad, PharmD 230 [place] [address] 10/18/2024 10:00 AM EDT Clinical Support [facility] MED & PEDS [address] [place] [address] Katherine Casper, RN 505 [place] [address] documented as of this encounter Visit Diagnoses Diagnosis Status post surgical removal of nail matrix of toe of left foot documented in this encounter Care Teams Continuous Improvement Black Belt Relationship Specialty Start Date End Date Joyce Tapia MD 230 [place] [address] PCP - General Family Medicine 06/19/12 documented as of this encounter
--- OUTSIDE RECORDS SUMMARY | 2024-08-16 12:04 | XMS_ITS | Encounter Summary ---
Author Organization [employer] Address [address] 7t [place] [address] Care Team Providers Care Welfare Worker Name Role Phone Joyce Tapia MD Primary Care Provider [phone] Encounter Details Date Type Department Care Team (Late st Contact Info) Description 08/01/2024 Orders Only GENERIC EXTERNAL DATA DEPARTMENT [facility] [address] [place] [address] Joyce Tapia MD 505 [place] [address] 09/17/2024 9:30 AM EDT Medication Management [facility] MED & PEDS 505 [place] [address] Cristal Muhammad, PharmD 230 [place] [address] 10/18/2024 10:00 AM EDT Clinical Support [facility] MED & PEDS [address] [place] [address] Katherine Casper, MAKEDA 505 [place], [place] [phone] documented as of this encounter Procedures Procedure Name Priority Date/Time Associated Diagnosis Comments CREATININE, SERUM Routine 08/01/2024 10: 49 AM EST UREA NITROGEN (BUN) Routine 08/01/2024 1 0:49 AM EST documented in this encounter Results * Creatinine, Serum (08/01/2024 10:49 AM EST) Creatinine, Serum 0.74 0.5 - 1.4 mg/dL [facility] Estimated Glomerular Filt Rate >60 [facility] Comment:Chronic Kidney Disea se: Estimated GFR < 60 mL/min/1.43s8Yenizu Kidney Disease: Estimated GFR < 15 mL/min/1.73m2 08/01/2024 10:4 9 AM EST 08/01/2024 10:49 AM EST us Generic External Data Provider LAB BLOOD ORDERAB LES Final Result Performing Organization Address [facility] Co de Phone Number [facility] [address] [place] [phone] * BUN (Blood Urea Nitrogen) (08/01/2024 10:49 AM EST) Urea Nitrogen (BUN) 13 9 - 16 mg/dL [facility] 08/01/2024 10:4 9 AM EST 08/01/2024 10:49 AM EST us Generic External Data Provider LAB BLOOD ORDERAB LES Final Result Performing Organization Address [facility] Co de Phone Number [facility] [address] [place] [phone] documented in this encounter Visit Diagnoses Not on filedocumented in this encounter Care Teams Welfare Worker Relationship Specialty Start Date End Date Joyce Tapia MD [address] [place] [address] PCP - General Family Medicine 06/19/12 documented as of this encounter
--- OUTSIDE RECORDS SUMMARY | 2024-08-16 12:04 | XMS_ITS | Encounter Summary ---
Author Organization [employer] Address [address] 7t [place] [address] Care Team Providers Care Maintenance Mechanic 2Nd Shift Name Role Phone Joyce Tapia MD Primary Care Provider [phone] Reason for Visit * Reason Comments controlled substance treatment Encounter Details Date Type Department Care Team ([facility] Contact Info) Description 08/09/2024 10:30 AM EST Telemedicine [facility] CHC MED & PEDS 505 [place] [address] Katherine Casper, RN 505 [place] [address] Chronic bilateral low back pain with left-sided sciatica Social History Tobacco Use Types Packs/Day Years [...] t he electric, gas, oil or water [employer] threatened to shut off services in your [...] as of this encounter Progress Notes * Katherine Casper RN - 08/09/2024 10:30 AM EST S: MANAGER SOUND Televisit. Patient is taking Oxycodone 5mg Q6 hr PRN. Patient states has been taking medication as prescribed. Reports no adverse reactions. Patient cont. With severe pain, especially in the low-mid back. Last appt with PCP on 07/09/24. Patient f/u with ortho. States she recently quit smoking cigarettes, congratulated! Patient denies ETOH, illegal drugs use. No other questions/ concerns at this time. O: MANAGER SOUND tier 3. SHELLFISH DREDGE OPERATOR checked on 08/09/24. Pill count performed over the phone, patient states she has 6pills remaining, 0 expected. Medications are not being overused. A: Chronic opioid use r/t chronic pain. P: Patient to cont. with current pain medication regimen as needed and take medication only as directed. f/u for next MANAGER SOUND NV scheduled for 10/18/24 @10am. MANAGER SOUND Agr. renewal, bpi due at the visit. F/u with PCP 09/06/24. f/u sooner PRN. Patient verbalized understanding and agreed to plan. documented in this encounter Plan of Treatment Upcoming Encounters Date Type Department Care Team ([facility] st Contact Info) Description 09/06/2024 8:30 AM EST Office Visit [facility] MED & PEDS [address] [place] [address] Joyce Tapia MD [address] [place] [address] 09/17/2024 9:30 AM EDT Medication Management [facility] MED & PEDS [address] [place] [address] Cristal Muhammad PharmD 230 [place] [address] 10/18/2024 10:00 AM EDT Clinical Support [facility] MED & PEDS [address] [place] [address] Katherine Casper, RN 505 [place] [address] documented as of this encounter Visit Diagnoses Diagnosis Chronic bilateral low back pain with left-sided sciatica documented in this encounter Care Teams Maintenance Mechanic 2Nd Shift Relationship Specialty Start Date End Date Joyce Tapia MD [address] [place] [address] PCP - General Family Medicine 06/19/12 documented as of this encounter
--- OUTSIDE RECORDS SUMMARY | 2024-08-16 12:04 | XMS_ITS | Encounter Summary ---
Author Organization [employer] Address [address] 7t [place] [address] Care Team Providers Care Process Control Engineer Name Role Phone Joyce Tapia MD Primary Care Provider Reason for Visit * Reason Onset Date Comments Med Refill 07/13/2024 Encounter Details Date Type Department Care Team (Late st Contact Info) Description 07/13/2024 Refill [facility] MEDICINE [address] [place], [place] [phone] Amber Palacio MD 230 [place], [place] [phone] Smoker Social History Tobacco Use Types Packs/Day [...] [facility] 505 [place] [address] Joyce Tapia MD 505 [place] [address] 09/17/2024 9:30 AM EDT Medication Management [facility] MED & PEDS 505 [place] [address] Cristal Muhammad, PharmD 230 [place] [address] 10/18/2024 10:00 AM EDT Clinical Support [facility] MED & PEDS 505 [place] [address] Katherine Casper, RN 505 [place] [address] documented as of this encounter Visit Diagnoses Diagnosis Smoker Tobacco use disorder documented in this encounter Care Teams Process Control Engineer Relationship Specialty Start Date End Date Joyce Tapia MD [address] [place] [address] PCP - General Family Medicine 06/19/12 documented as of this encounter
--- OUTSIDE RECORDS SUMMARY | 2024-08-16 12:04 | XMS_ITS | Encounter Summary ---
Author Organization [employer] Address [address] 7t [place] [address] Care Team Providers Care Taxicab Coordinator Name Role Phone Joyce Tapia MD Primary Care Provider [phone] Reason for Visit * Reason Onset Date Comments Med Refill 03/17/2023 Encounter Details Date Type Department Care Team (Late st Contact Info) Description 03/17/2023 Telephone [facility] CH[facility] MED & PEDS [address] [place] [address] Joyce Tapia MD 505 [place] [address] Med Refill Social History Tobacco Use Types [...] [facility] MED & PEDS [address] [place] [address] Joyce Tapia MD 505 [place] [address] 09/17/2024 9:30 AM EDT Medication Management [facility] MED & PEDS [address] [place] [address] Cristal Muhammad, BobD 230 [place] [address] 10/18/2024 10:00 AM EDT Clinical Support [facility] MED & PEDS [address] [place] [address] Katherine Casper, RN 505 [place] [address] documented as of this encounter Visit Diagnoses Not on filedocumented in this encounter Care Teams Taxicab Coordinator Relationship Specialty Start Date End Date Joyce Tapia MD [address] [place] [address] PCP - General Family Medicine 06/19/12 documented as of this encounter
--- OUTSIDE RECORDS SUMMARY | 2024-08-16 12:04 | XMS_ITS | Encounter Summary ---
Author Organization [employer] Address [address] 7t [place] [address] Care Team Providers Care Embossograph Operator Name Role Phone Joyce Tapia MD Primary Care Provider [phone] Encounter Details Date Type Department Care Team (Latest Contact Info) Description 08/09/2024 Travel Social History Tobacco Use Types Packs/Day [facility] [address] [place] [address] Joyce Tapia MD 505 [place] [address] 09/17/2024 9:30 AM EDT Medication Management [facility] MED & PEDS [address] [place] [address] Cristal Muhammad, PharmD 230 [place] [address] 10/18/2024 10:00 AM EDT Clinical Support [facility] MED & PEDS [address] [place] [address] Katherine Casper, RN 505 [place] [address] documented as of this encounter Visit Diagnoses Not on filedocumented in this encounter Care Teams Embossograph Operator Relationship Specialty Start Date End Date Joyce Tapia MD 230 [place] [address] PCP - General Family Medicine 06/19/12 documented as of this encounter
--- OUTSIDE RECORDS SUMMARY | 2024-08-16 12:04 | XMS_ITS | Encounter Summary ---
Author Organization [employer] [facility] Address [address] 7t [place] [address] Care Team Providers Care Technical Publications Manager Name Role Phone Joyce Tapia MD Primary Care Provider [phone] Encounter Details Date Type Department Care Team (Latest Contact Info) Description 03/21/2019 Abstract [facility] CONVERSIONS Dental, Provider, DDS Social History Tobacco [...] Description 09/06/2024 8:30 AM EST Office Visit [facility] CHC MED & PEDS [address] [place] [address] Joyce Tapia MD 505 [place] [address] 09/17/2024 9:30 AM EDT Medication Management [facility] MED & PEDS 505 [place] [address] Cristal Muhammad, PharmD 230 [place] [address] 10/18/2024 10:00 AM EDT Clinical Support [facility] MED & PEDS [address] [place] [address] Katherine Casper, MAKEDA 505 [place] [address] documented as of this encounter Visit Diagnoses Not on filedocumented in this encounter Care Teams Technical Publications Manager Relationship Specialty Start Date End Date Joyce Tapia MD [address] [place] [address] PCP - General Family Medicine 06/19/12 documented as of this encounter
--- OUTSIDE RECORDS SUMMARY | 2024-08-16 12:04 | XMS_ITS | Encounter Summary ---
Author Organization [employer] Address [address] 7t [place] [address] Care Team Providers Care Fish Farmer Name Role Phone Joyce Tapia MD Primary Care Provider Encounter Details Date Type Department Care Team ([facility] st Contact Info) Description 08/09/2024 Telephone [facility] CHC MED & PEDS [address] [place], [place] [phone] Katherine Casper, RN [address] [place] [address] Social History Tobacco Use Types Packs/Day Years [...] Telephone Encounter - Katherine Casper RN - 08/09/2024 10:09 AM EST TC to pt regarding message below. SOCIAL SECURITY ASSESSOR [place] converted to a televisit today d/t inclement weather. documented in this encounter Plan of Treatment Upcoming Encounters Date Type Department Care Team (Late st Contact Info) Description 09/06/2024 8:30 AM EST Office Visit [facility] MED & PEDS [address] [place] [address] Joyce Tapia MD 505 [place] [address] 09/17/2024 9:30 AM EDT Medication Management [facility] MED & PEDS [address] [place] [address] Cristal Muhammad, PharmD 230 [place] [address] 10/18/2024 10:00 AM EDT Clinical Support [facility] MED & PEDS [address] [place] [address] Katherine Casper RN [address] [place] [address] documented as of this encounter Visit Diagnoses Not on filedocumented in this encounter Care Teams Fish Farmer Relationship Specialty Start Date End Date Joyce Tapia MD 230 [place] [address] PCP - General Family Medicine 06/19/12 documented as of this encounter
--- OUTSIDE RECORDS SUMMARY | 2024-08-16 12:04 | XMS_ITS | Encounter Summary ---
Author Organization [employer] Address [address] 7t [place] [address] Care Team Providers Care Drawer In Name Role Phone Joyce Tapia MD Primary Care Provider [phone] Reason for Visit * Reason Comments Med Refill Encounter Details Date Type Department Care Team ([facility] st Contact Info) Description 08/15/2024 Refill [facility] MED & PEDS [address] [place], [place] [phone] Joyce Tapia MD 505 [place] [address] Social History Tobacco Use Types Packs/Day Years [...] [facility] 505 [place] [address] Joyce Tapia MD 505 [place] [address] 09/17/2024 9:30 AM EDT Medication Management [facility] MED & PEDS 505 [place] [address] Cristal Muhammad, PharmD 230 [place] [address] 10/18/2024 10:00 AM EDT Clinical Support [facility] MED & PEDS 505 [place] [address] Katherine Casper, RN 505 [place] [address] documented as of this encounter Visit Diagnoses Not on filedocumented in this encounter Care Teams Drawer In Relationship Specialty Start Date End Date Jocye Tapia MD 230 [place] [address] PCP - General Family Medicine 06/19/12 documented as of this encounter
--- OUTSIDE RECORDS SUMMARY | 2024-08-16 12:04 | XMS_ITS | Encounter Summary ---
Author Organization [employer] Address [address] 7t [place] [address] Care Team Providers Care Circulation Representative Name Role Phone Joyce Tapia MD Primary Care Provider [phone] Reason for Visit * Reason Onset Date Comments Med Refill 03/04/2023 Encounter Details Date Type Department Care Team (Late st Contact Info) Description 03/04/2023 Telephone [facility] MEDICINE 230 [place] [address] Joyce Tapia MD [address] [place], [place] [phone] Med Refill Social History Tobacco Use Types [...] encounter Miscellaneous Notes * Telephone Encounter - Chocoal Maurisio - 03/04/2023 9:05 AM EDT Tc from pt requesting a refill oxyCODONE (Roxicodone) 5 MG immediate release tablet documented in this encounter Plan of Treatment Upcoming Encounters Date Type Department Care Team (Late st Contact Info) Description 09/06/2024 8:30 AM EST Office Visit [facility] MED & PEDS 505 [place] [address] Joyce Tapia MD 505 [place] 09/17/2024 9:30 AM EDT Medication Management [facility] MED & PEDS [address] [place] [address] Cristal Muhammad PharmD 230 [place] [address] 10/18/2024 10:00 AM EDT Clinical Support [facility] MED & PEDS [address] [place], [place] [phone] Katherine Casper, MAKEDA 505 [place], [place] documented as of this encounter Visit Diagnoses Not on filedocumented in this encounter Care Teams Circulation Representative Relationship Specialty Start Date End Date Joyce Tapia MD [address] [place] [address] PCP - General Family Medicine 06/19/12 documented as of this encounter
--- OUTSIDE RECORDS SUMMARY | 2024-08-16 12:04 | XMS_ITS | Encounter Summary ---
Author Organization [employer] Address [address] [facility] [address] 7t [place] [address] Care Team Providers Care Medical Service Representative Name Role Phone Joyce Tapia MD Primary Care Provider [phone] Reason for Visit * Reason Comments Med Refill Encounter Details Date Type Department Care Team ([facility] st Contact Info) Description 08/10/2024 Refill [facility] CH[facility] MED & PEDS 505 [place], [place] [phone] Emerson Keith MD 505 [place] [address] Social History Tobacco Use Types Packs/Day Years [...] t he electric, gas, oil or water [employer] threatened to shut off services in your [...] 8:30 AM EST Office Visit [facility] MED & PEDS 505 [place] [address] Joyce Tapia MD 505 [place] [address] 09/17/2024 9:30 AM EDT Medication Management [facility] MED & PEDS [address] [place] [address] Cristal Muhammad, PharmD 230 [place] [address] 10/18/2024 10:00 AM EDT Clinical Support [facility] MED & PEDS [address] [place] [address] Katherine Casper, RN 505 [place] [address] documented as of this encounter Visit Diagnoses Not on filedocumented in this encounter Care Teams Medical Service Representative Relationship Specialty Start Date End Date Joyce Tapia MD [address] [place] [address] PCP - General Family Medicine 06/19/12 documented as of this encounter
--- OUTSIDE RECORDS SUMMARY | 2024-08-16 12:04 | XMS_ITS | Encounter Summary ---
Author Organization [employer] Address [address] [facility] 7t [place] [address] Care Team Providers Care Animal Skinner Name Role Phone Joyce Tapia MD Primary Care Provider [phone] Reason for Visit * Reason Onset Date Comments Med Refill 04/19/2023 Encounter Details Date Type Department Care Team (Late st Contact Info) Description 04/19/2023 Telephone [facility] CHC MED & PEDS 505 [place] [address] Joyce Tapia MD 505 [place] [address] Med Refill Social History Tobacco Use Types [...] 8:30 AM EST Office Visit [facility] MED & PEDS [address] [place] [address] Joyce Tapia MD [address] [place] [address] 09/17/2024 9:30 AM EDT Medication Management [facility] MED & PEDS [address] [place] [address] Cristal Muhammad, BobD [address] [place] [address] 10/18/2024 10:00 AM EDT Clinical Support [facility] MED & PEDS [address] [place] [address] Katherine Casper, RN 505 [place] [address] documented as of this encounter Visit Diagnoses Not on filedocumented in this encounter Care Teams Animal Skinner Relationship Specialty Start Date End Date Joyce Tapia MD [address] [place] [address] PCP - General Family Medicine 06/19/12 documented as of this encounter
--- OUTSIDE RECORDS SUMMARY | 2024-08-16 12:04 | XMS_ITS | Encounter Summary ---
Author Organization [employer] Address [address] 7t [place] [address] Care Team Providers Care Newsagent Name Role Phone Joyce Tapia MD Primary Care Provider [phone] Encounter Details Date Type Department Care Team (Latest Contact Info) Description 08/07/2024 Travel Social History Tobacco Use Types Packs/Day [...] [facility] MED & PEDS 505 [place] [address] Joyce Tapia MD 505 [place] [address] 09/17/2024 9:30 AM EDT Medication Management [facility] MED & PEDS 505 [place] [address] Cristal Muhammad, PharmD 230 [place] [address] 10/18/2024 10:00 AM EDT Clinical Support [facility] MED & PEDS 505 [place] [address] Katherine Casper, RN 505 [place] [address] documented as of this encounter Visit Diagnoses Not on filedocumented in this encounter Care Teams Newsagent Relationship Specialty Start Date End Date Joyce Tapia MD [address] [place] [address] PCP - General Family Medicine 06/19/12 documented as of this encounter
--- OUTSIDE RECORDS SUMMARY | 2024-08-16 12:05 | XMS_ITS | Encounter Summary ---
Author Organization [employer] Address [address] 7t [place] [address] Care Team Providers Care Commissioned Sales Associate Name Role Phone Joyce Tapia MD Primary Care Provider [phone] Reason for Visit * Reason Onset Date Comments Med Refill 12/21/2022 Encounter Details Date Type Department Care Team ([facility] st Contact Info) Description 12/21/2022 Telephone [facility] MEDICINE 230 [place], [place] [phone] Joyce Tapia MD [address] [place], [place] [phone] Med Refill Social History Tobacco Use Types [...] t he electric, gas, oil or water [employer] threatened to shut off services in your [...] medication oxycodone 5 mg. Please send to [facility] [place], [place] - [address] Tapia * Telephone Encounter - Gómez Forde - 12/21/2022 8:06 AM EDT Tc from pt requesting a med refill for oxycodone 5 mg documented in this encounter Plan of Treatment Upcoming Encounters Date Type Department Care Team ([facility] st Contact Info) Description 09/06/2024 8:30 AM EST Office Visit [facility] MED & PEDS [address] [place] [address] Joyce Tapia MD 505 [place] [address] 09/17/2024 9:30 AM EDT Medication Management [facility] MED & PEDS [address] [place] [address] Cristal Muhammad PharmD [address] [place] [address] 10/18/2024 10:00 AM EDT Clinical Support [facility] MED & PEDS [address] [place] [address] Katherine Casper, RN 505 [place] [address] documented as of this encounter Visit Diagnoses Not on filedocumented in this encounter Care Teams Commissioned Sales Associate Relationship Specialty Start Date End Date Joyce Tapia MD [address] [place] [address] PCP - General Family Medicine 06/19/12 documented as of this encounter
--- OUTSIDE RECORDS SUMMARY | 2024-08-16 12:05 | XMS_ITS | Encounter Summary ---
Author Organization [employer] [facility] Address [address] [facility] 7t [place] [address] Care Team Providers Care Process Control Programmer Name Role Phone Joyce Tapia MD Primary Care Provider [phone] Encounter Details Date Type Department Care Team (Late st Contact Info) Description 05/24/2023 Abstract [facility] MEDICINE [address] [place], [place] [phone] Zohra Benavidez Social History Tobacco Use Types [...] [facility] MED & PEDS [address] [place] [address] Joyce Tapia MD 505 [place] [address] 09/17/2024 9:30 AM EDT Medication Management [facility] MED & PEDS 505 [place] [address] Cristal Muhammad, PharmD 230 [place] [address] 10/18/2024 10:00 AM EDT Clinical Support [facility] MED & PEDS 505 [place] [address] Katherine Casper, RN [address] [place], [place] documented as of this encounter Procedures Procedure Name Priority Date/Time Associated Diagnosis Comments HM COLONOSCOPY Routine 02/20/2015 documented in this encounter Results * Hm Colonoscopy (02/20/2015) Colonoscopy Normal Normal Narrative Zohra Benavidez - 02/20/2015 Repeat in 10 year Historical Provider HEALTH MAINTENANCE Final Result documented in this encounter Visit Diagnoses Not on filedocumented in this encounter Care Teams Process Control Programmer Relationship Specialty Start Date End Date Joyce Tapia MD [address] [place] [address] PCP - General Family Medicine 06/19/12 documented as of this encounter
--- OUTSIDE RECORDS SUMMARY | 2024-08-16 12:05 | XMS_ITS | Encounter Summary ---
Author Organization [employer] Address [address] [facility] 7t [place] [address] Care Team Providers Care Magazine Writer Name Role Phone Joyce Tapia MD Primary Care Provider [phone] Reason for Visit * Reason Onset Date Comments Med Refill 05/28/2024 Encounter Details Date Type Department Care Team ([facility] st Contact Info) Description 05/28/2024 Refill [facility] CH[facility] MED & PEDS [address] [place], [place] [phone] Joyce Tapia MD 505 [place] [address] Status post surgical removal of nail matrix [...] [facility] MED & PEDS [address] [place] [address] Joyce Tapia MD 505 [place] [address] 09/17/2024 9:30 AM EDT Medication Management [facility] MED & PEDS 505 [place] [address] Cristal Muhammad, BobD 230 [place] [address] 10/18/2024 10:00 AM EDT Clinical Support [facility] MED & PEDS 505 [place] [address] Katherine Casper, MAKEDA 505 [place] [address] documented as of this encounter Visit Diagnoses Diagnosis Status post surgical removal of nail matrix of toe of left foot documented in this encounter Care Teams Magazine Writer Relationship Specialty Start Date End Date Joyce Tapia MD [address] [place] [address] PCP - General Family Medicine 06/19/12 documented as of this encounter
--- OUTSIDE RECORDS SUMMARY | 2024-08-16 12:05 | XMS_ITS | Encounter Summary ---
Author Organization [employer] Address [address] [facility] [address] 7t [place] [address] Care Team Providers Care Psychological Operations Name Role Phone Joyce Tapia MD Primary Care Provider [phone] Reason for Visit * Reason Onset Date Comments Med Refill 07/27/2024 Encounter Details Date Type Department Care Team ([facility] st Contact Info) Description 07/27/2024 Telephone [facility] MED & PEDS [address] [place], [place] [phone] Joyce Tapia MD 505 [place] [address] Med Refill Social History Tobacco Use Types [...] Encounter - Katherine Casper RN - 08/09/2024 10:03 AM EST TC to pt regarding message below. POLICY ADVISOR [place] converted to a televisit today d/t inclement weather. * Telephone Encounter - Joyce Tapia MD - 08/08/2024 7:51 PM EST 3 * Telephone Encounter - Katherine Casper RN - 08/07/2024 3:51 PM EST .What POLICY ADVISOR Tier would you like this patient to be? Tier 1 = HIGH RISK, Monthly POLICY ADVISOR visits Tier 2 = MODerate RISK, Q3 Month visits Tier 3 = LOW RISK = Q4-6 month visits * Telephone Encounter - Maxine Tillman - 07/27/2024 9:13 AM EST TC from pt requesting medication refill. Medications needing refill : oxyCODONE (Roxicodone) 5 MG immediate release tablet To be sent to: [facility]/pharmacy #[id number] - [place] - [address] documented in this encounter Plan of Treatment Upcoming Encounters Date Type Department Care Team (Late st Contact Info) Description 09/06/2024 8:30 AM EST Office Visit [facility] MED & PEDS 505 [place] [address] Joyce Tapia MD 505 [place] [address] 09/17/2024 9:30 AM EDT Medication Management [facility] MED & PEDS [address] [place] [address] Cristal Muhammad, BobD 230 [place] [address] 10/18/2024 10:00 AM EDT Clinical Support [facility] MED & PEDS 505 [place] [address] Katherine Casper, RN 505 [place] [address] documented as of this encounter Visit Diagnoses Not on filedocumented in this encounter Care Teams Psychological Operations Relationship Specialty Start Date End Date Joyce Tapia MD 230 [place] [address] PCP - General Family Medicine 06/19/12 documented as of this encounter
--- OUTSIDE RECORDS SUMMARY | 2024-08-16 12:05 | XMS_ITS | Encounter Summary ---
Author Organization [employer] Address [address] [facility] 7t [place] [address] Care Team Providers Care Die Cutter Apprentice Name Role Phone Joyce Tapia MD Primary Care Provider [phone] Reason for Visit * Reason Onset Date Comments Med Refill 05/30/2023 Encounter Details Date Type Department Care Team ([facility] st Contact Info) Description 05/30/2023 Telephone [facility] MEDICINE 230 [place], [place] [phone] Joyce Tapia MD [address] [place] [address] Med Refill Social History Tobacco Use Types [...] oxyCODONE (Roxicodone) 5 MG immediate release tablet [facility] - [place] - [address] documented in this encounter Plan of Treatment Upcoming Encounters Date Type Department Care Team (Late st Contact Info) Description 09/06/2024 8:30 AM EST Office Visit [facility] MED & PEDS 505 [place] [address] Joyce Tapia MD 505 [place] [address] 09/17/2024 9:30 AM EDT Medication Management [facility] MED & PEDS 505 [place] [address] Cristal Muhammad PharmD 230 [place] [address] 10/18/2024 10:00 AM EDT Clinical Support [facility] MED & PEDS 505 [place] [address] Katherine Casper, MAKEDA 505 [place] [address] documented as of this encounter Visit Diagnoses Not on filedocumented in this encounter Care Teams Die Cutter Apprentice Relationship Specialty Start Date End Date Joyce Tapia MD 230 [place] [address] PCP - General Family Medicine 06/19/12 documented as of this encounter
--- OUTSIDE RECORDS SUMMARY | 2024-08-16 12:05 | XMS_ITS | Encounter Summary ---
Author Organization [employer] Address [address] [facility] [facility] [address] 7[address] [place] [address] Care Team Providers Care Telegraphic Typewriter Mechanic Name Role Phone Joyce Tapia MD Primary Care Provider [phone] Reason for Visit * Reason Onset Date Comments Med Refill 06/05/2024 Encounter Details Date Type Department Care Team (Late st Contact Info) Description 06/05/2024 Refill [facility] MEDICINE 230 [place] [address] Joyce Tapia MD [address] [place] [address] Status post surgical removal of nail matrix [...] [facility] MED & PEDS 505 [place] [address] Joyce Tapia MD 505 [place] [address] 09/17/2024 9:30 AM EDT Medication Management [facility] MED & PEDS 505 [place] [address] Cristal Muhammad PharmD 230 [place] [address] 10/18/2024 10:00 AM EDT Clinical Support [facility] MED & PEDS 505 [place] [address] Katherine Casper, RN 505 [place] [address] documented as of this encounter Visit Diagnoses Diagnosis Status post surgical removal of nail matrix of toe of left foot documented in this encounter Care Teams Telegraphic Typewriter Mechanic Relationship Specialty Start Date End Date Joyce Tapia MD 230 [place] [address] PCP - General Family Medicine 06/19/12 documented as of this encounter
--- OUTSIDE RECORDS SUMMARY | 2024-08-16 12:05 | XMS_ITS | Encounter Summary ---
Author Organization [employer] Address [address] 7t [place] [address] Care Team Providers Care Veterinarian Epidemiologist Name Role Phone Joyce Tapia MD Primary Care Provider Reason for Visit * Reason Onset Date Comments Med Refill 08/01/2024 Encounter Details Date Type Department Care Team (Late st Contact Info) Description 08/01/2024 Refill [facility] MEDICINE 230 [place] [address] Joyce Tapia MD [address] [place] [address] Status post surgical removal of nail matrix [...] encounter Miscellaneous Notes * Telephone Encounter - Dominick Jose - 08/01/2024 11:24 AM EST TC from pt requesting medication refill. Medications needing refill : oxyCODONE (Roxicodone) 5 MG immediate release tablet To be sent to: [facility]/pharmacy #[id number] [place] - [address] [facility] documented in this encounter Plan of Treatment Upcoming Encounters Date Type Department Care Team (Late st Contact Info) Description 09/06/2024 8:30 AM EST Office Visit [facility] MED & PEDS 505 [place] [address] Joyce Tapia MD 505 [place] [address] 09/17/2024 9:30 AM EDT Medication Management [facility] MED & PEDS 505 [place] [address] Cristal Muhammad, PharmD 230 [place] [address] 10/18/2024 10:00 AM EDT Clinical Support [facility] MED & PEDS 505 [place] [address] Katherine Casper, RN 505 [place] [address] documented as of this encounter Visit Diagnoses Diagnosis Status post surgical removal of nail matrix of toe of left foot documented in this encounter Care Teams Veterinarian Epidemiologist Relationship Specialty Start Date End Date Joyce Tapia MD [address] [place] [address] PCP - General Family Medicine 06/19/12 documented as of this encounter
--- OUTSIDE RECORDS SUMMARY | 2024-08-16 12:05 | XMS_ITS | Encounter Summary ---
Author Organization [employer] Address [address] [facility] 7t [place] [address] Care Team Providers Care Paint Dipper Name Role Phone Joyce Tapia MD Primary Care Provider [phone] Reason for Visit * Reason Onset Date Comments Med Refill 06/28/2023 Encounter Details Date Type Department Care Team ([facility] st Contact Info) Description 06/28/2023 Telephone [facility] MEDICINE 230 [place], [place] [phone] Joyce Tapia MD [address] [place] [address] Med Refill Social History Tobacco Use Types [...] immediate release tablet To be sent to: [facility] - [place] - [address] [facility] documented in this encounter Plan of Treatment Upcoming Encounters Date Type Department Care Team (Late st Contact Info) Description 09/06/2024 8:30 AM EST Office Visit [facility] MED & PEDS [address] [place] [address] Joyce Tapia MD 505 [place] [address] 09/17/2024 9:30 AM EDT Medication Management [facility] MED & PEDS 505 [place] [address] Cristal Muhammad, BobD 230 [place] [address] 10/18/2024 10:00 AM EDT Clinical Support [facility] MED & PEDS [address] [place] [address] Katherine Casper, MAKEDA 505 [place] [address] documented as of this encounter Visit Diagnoses Not on filedocumented in this encounter Care Teams Paint Dipper Relationship Specialty Start Date End Date Joyce Tapia MD 230 [place] [address] PCP - General Family Medicine 06/19/12 documented as of this encounter
--- OUTSIDE RECORDS SUMMARY | 2024-08-16 12:05 | XMS_ITS | Encounter Summary ---
Author Organization [facility] [facility] Address [address] [facility] 7t [place] [address] Care Team Providers Care Profile Saw Setup Operator Name Role Phone Joyce Tapia MD Primary Care Provider [phone] Reason for Visit * Reason Comments Med Refill Encounter Details Date Type Department Care Team (Late st Contact Info) Description 07/29/2023 Refill [facility] MEDICINE 230 [place], [place] [phone] Joyce Tapia MD 505 [place] [address] Status post surgical removal of nail matrix [...] 8:30 AM EST Office Visit [facility] MED & PEDS 505 [place], [place] [phone] Joyce Tapia MD 505 [place] [address] 09/17/2024 9:30 AM EDT Medication Management [facility] MED & PEDS 505 [place] [address] Cristal Muhammad PharmD 230 [place] [address] 10/18/2024 10:00 AM EDT Clinical Support [facility] MED & PEDS 505 [place] [address] Katherine Casper, RN 505 [place] [address] documented as of this encounter Visit Diagnoses Diagnosis Status post surgical removal of nail matrix of toe of left foot documented in this encounter Care Teams Profile Saw Setup Operator Relationship Specialty Start Date End Date Joyce Tapia MD 230 [place] [address] PCP - General Family Medicine 06/19/12 documented as of this encounter
--- OUTSIDE RECORDS SUMMARY | 2024-08-16 12:05 | XMS_ITS | Encounter Summary ---
Author Organization [facility] [facility] Address [address] [facility] 7t [place] [address] Care Team Providers Care Creative Lead Name Role Phone Joyce Tapia MD Primary Care Provider [phone] Encounter Details Date Type Department Care Team (Late st Contact Info) Description 09/27/2022 Orders Only [facility] MEDICINE 230 [place], [place] [phone] Comfort Estrada LPN Social History Tobacco Use [...] Description 09/06/2024 8:30 AM EST Office Visit [facility] CH[facility] MED & PEDS 505 [place], [place] [phone] Joyce Tapia MD 505 [place] [address] 09/17/2024 9:30 AM EDT Medication Management [facility] MED & PEDS 505 [place] [address] Cristal Muhammad PharmD 230 [place] [address] 10/18/2024 10:00 AM EDT Clinical Support [facility] MED & PEDS 505 [place] [address] Katherine Casper, RN 505 [place] [address] documented as of this encounter Visit Diagnoses Not on filedocumented in this encounter Care Teams Creative Lead Relationship Specialty Start Date End Date Joyce Tapia MD 230 [place] [address] PCP - General Family Medicine 06/19/12 documented as of this encounter
--- OUTSIDE RECORDS SUMMARY | 2024-08-16 12:05 | XMS_ITS | Encounter Summary ---
Author Organization [employer] Address [address] [place] [address] 7t [place] [address] Care Team Providers Care Core Setter Name Role Phone Joyce Tapia MD Primary Care Provider [phone] Reason for Visit * Reason Comments Med Refill Encounter Details Date Type Department Care Team (Late st Contact Info) Description 10/11/2023 Refill [facility] MEDICINE 230 [place], [place] [phone] Ayden Orellana MD 505 [place], [place] [phone] Status post surgical removal of nail matrix [...] 8:30 AM EST Office Visit [facility] CHC MED & PEDS 505 [place], [place] [phone] Joyce Tapia MD 505 [place], [place] [phone] 09/17/2024 9:30 AM EDT Medication Management [facility] MED & PEDS 505 [place] [address] Cristal Muhammad PharmD 230 [place] [address] 10/18/2024 10:00 AM EDT Clinical Support [facility] MED & PEDS 505 [place] [address] Katherine Casper, RN 505 [place] [address] documented as of this encounter Visit Diagnoses Diagnosis Status post surgical removal of nail matrix of toe of left foot documented in this encounter Care Teams Core Setter Relationship Specialty Start Date End Date Joyce Tapia MD 230 [place] [address] PCP - General Family Medicine 06/19/12 documented as of this encounter
--- OUTSIDE RECORDS SUMMARY | 2024-08-16 12:05 | XMS_ITS | Encounter Summary ---
Author Organization [employer] Address [address] [address] [facility] [address] 7t [place] [address] Care Team Providers Care Biodiesel Production Associate Name Role Phone Joyce Tapia MD Primary Care Provider [phone] Reason for Visit * Reason Onset Date Comments Med Refill 05/21/2024 Encounter Details Date Type Department Care Team ([facility] st Contact Info) Description 05/21/2024 Refill [facility] CH[facility] MED & PEDS [address] [place], [place] [phone] Joyce Tapia MD 505 [place] [address] Social History Tobacco Use Types Packs/Day Years [...] [facility] MED & PEDS 505 [place] [address] Joyce Tapia MD 505 [place] [address] 09/17/2024 9:30 AM EDT Medication Management [facility] MED & PEDS 505 [place] [address] Cristal Muhammad, PharmD 230 [place] [address] 10/18/2024 10:00 AM EDT Clinical Support [facility] MED & PEDS 505 [place] [address] Katehrine Casper, RN 505 [place] [address] documented as of this encounter Visit Diagnoses Not on filedocumented in this encounter Care Teams Biodiesel Production Associate Relationship Specialty Start Date End Date Joyce Tapia MD 230 [place] [address] PCP - General Family Medicine 06/19/12 documented as of this encounter
--- OUTSIDE RECORDS SUMMARY | 2024-08-16 12:05 | XMS_ITS | Encounter Summary ---
Author Organization [employer] Address [address] [facility] 7t [place] [address] Care Team Providers Care Salesperson Stereo Equipment Name Role Phone Joyce Tapia MD Primary Care Provider [phone] Reason for Visit * Reason Onset Date Comments Med Refill 07/12/2024 Encounter Details Date Type Department Care Team (Late st Contact Info) Description 07/12/2024 Refill [facility] CH[facility] MED & PEDS 505 [place], [place] [phone] Joyce Tapia MD 505 [place] [address] Status post surgical removal of nail matrix [...] 8:30 AM EST Office Visit [facility] MED & PEDS 505 [place] [address] Joyce Tapia MD 505 [place] [address] 09/17/2024 9:30 AM EDT Medication Management [facility] MED & PEDS 505 [place] [address] Cristal Muhammad, BobD 230 [place] [address] 10/18/2024 10:00 AM EDT Clinical Support [facility] MED & PEDS 505 [place] [address] Katherine Casper, MAKEDA 505 [place] [address] documented as of this encounter Visit Diagnoses Diagnosis Status post surgical removal of nail matrix of toe of left foot documented in this encounter Care Teams Salesperson Stereo Equipment Relationship Specialty Start Date End Date Joyce Tapia MD 230 [place] [address] PCP - General Family Medicine 06/19/12 documented as of this encounter
--- OUTSIDE RECORDS SUMMARY | 2024-08-16 12:05 | XMS_ITS | Encounter Summary ---
Author Organization [employer] [facility] Address [address] [facility] 7t [place] [address] Care Team Providers Care Wireless Telegrapher Name Role Phone Joyce Tapia MD Primary Care Provider [phone] Reason for Visit * Reason Comments Med Refill Encounter Details Date Type Department Care Team (Late st Contact Info) Description 06/07/2023 Refill [facility] MED & PEDS [address] [place], [place] [phone] Ev Lewis, ANP 230 [place] [address] Status post surgical removal of nail matrix [...] Description 09/06/2024 8:30 AM EST Office Visit [facility] MED & PEDS [address] [place], [place] [phone] Joyce Tapia MD 505 [place] [address] 09/17/2024 9:30 AM EDT Medication Management [facility] MED & PEDS [address] [place] [address] Cristal Muhammad PharmD 230 [place] [address] 10/18/2024 10:00 AM EDT Clinical Support [facility] MED & PEDS [address] [place] [address] Katherine Casper, RN 505 [place] [address] documented as of this encounter Visit Diagnoses Diagnosis Status post surgical removal of nail matrix of toe of left foot documented in this encounter Care Teams Wireless Telegrapher Relationship Specialty Start Date End Date Joyce Tapia MD [address] [place] [address] PCP - General Family Medicine 06/19/12 documented as of this encounter
--- OUTSIDE RECORDS SUMMARY | 2024-08-16 12:05 | XMS_ITS | Encounter Summary ---
Author Organization [employer] [facility] Address [address] [facility] 7t [place] [address] Care Team Providers Care Logistics Loss Prevention Manager Name Role Phone Joyce Tapia MD Primary Care Provider [phone] Reason for Visit * Reason Comments Med Refill Encounter Details Date Type Department Care Team (Late st Contact Info) Description 06/06/2023 Refill [facility] MED & PEDS 505 [place], [place] [phone] Ev Lewis, ANP 230 [place] [address] Status post surgical removal of nail matrix [...] Description 09/06/2024 8:30 AM EST Office Visit [facility] MED & PEDS 505 [place], [place] [phone] Joyce Tapia MD 505 [place] [address] 09/17/2024 9:30 AM EDT Medication Management [facility] MED & PEDS [address] [place] [address] Cristal Muhammad PharmD 230 [place] [address] 10/18/2024 10:00 AM EDT Clinical Support [facility] MED & PEDS [address] [place] [address] Katherine Casper, RN 505 [place] [address] documented as of this encounter Visit Diagnoses Diagnosis Status post surgical removal of nail matrix of toe of left foot documented in this encounter Care Teams Logistics Loss Prevention Manager Relationship Specialty Start Date End Date Joyce Tapia MD [address] [place] [address] PCP - General Family Medicine 06/19/12 documented as of this encounter
--- OUTSIDE RECORDS SUMMARY | 2024-08-16 12:05 | XMS_ITS | Encounter Summary ---
Author Organization [employer] Address [address] [facility] 7t [place] [address] Care Team Providers Care University Administrator Name Role Phone Joyce Tapia MD Primary Care Provider [phone] Reason for Visit * Reason Comments Med Refill Encounter Details Date Type Department Care Team (Late Contact Info) Description 10/25/2022 Refill [facility] MED & PEDS 505 [place], [place] [phone] Jenny Schmidt MD 505 [place] [address] Status post surgical removal of nail matrix [...] Department Care Team (Late Contact Info) Description 09/06/2024 8:30 AM EST Office Visit [facility] MED & PEDS 505 [place] [address] Joyce Tapia MD 505 [place] [address] 09/17/2024 9:30 AM EDT Medication Management [facility] MED & PEDS 505 [place] [address] Cristal Muhammad PharmD 230 [place] [address] 10/18/2024 10:00 AM EDT Clinical Support [facility] MED & PEDS 505 [place] [address] Katherine Casper RN 505 [place] [address] documented as of this encounter Visit Diagnoses Diagnosis Status post surgical removal of nail matrix of toe of left foot documented in this encounter Care Teams University Administrator Relationship Specialty Start Date End Date Joyce Tapia MD 230 [place] [address] PCP - General Family Medicine 06/19/12 documented as of this encounter
--- OUTSIDE RECORDS SUMMARY | 2024-08-16 12:05 | XMS_ITS | Encounter Summary ---
Author Organization [employer] Address [address] [facility] 7t [place] [address] Care Team Providers Care Studio Grip Name Role Phone Joyce Tapia MD Primary Care Provider [phone] Reason for Visit * Reason Onset Date Comments Med Refill 07/27/2024 Encounter Details Date Type Department Care Team (Late st Contact Info) Description 07/27/2024 Refill [facility] 230 [place] [address] Emerson Keith MD 505 [place] [address] Status post surgical removal of nail matrix [...] [facility] 505 [place] [address] Joyce Tapia MD 505 [place] [address] 09/17/2024 9:30 AM EDT Medication Management [facility] 505 [place] [address] Cristal Muhammad, BobD 230 [place] [address] 10/18/2024 10:00 AM EDT Clinical Support [facility] 505 [place] [address] Katherine Casper, MAKEDA 505 [place] [address] documented as of this encounter Visit Diagnoses Diagnosis Status post surgical removal of nail matrix of toe of left foot documented in this encounter Care Teams Studio Grip Relationship Specialty Start Date End Date Joyce Tapia MD 230 [place] [address] PCP - General Family Medicine 06/19/12 documented as of this encounter
--- OUTSIDE RECORDS SUMMARY | 2024-08-16 12:05 | XMS_ITS | Encounter Summary ---
Author Organization [employer] Address [address] 7t [place] [address] Care Team Providers Care Chocolate Refining Roller Name Role Phone Joyce Tapia MD Primary Care Provider [phone] Reason for Visit * Reason Onset Date Comments Med Refill 07/26/2024 Encounter Details Date Type Department Care Team (Late st Contact Info) Description 07/26/2024 Refill [facility] 230 [place] [address] Joyce Tapia MD [address] [place] [address] Status post surgical removal of nail matrix [...] immediate release tablet To be sent to: [facility]/pharmacy #[id number] documented in this encounter Plan of Treatment Upcoming Encounters Date Type Department Care Team (Late st Contact Info) Description 09/06/2024 8:30 AM EST Office Visit [facility] 505 [place] [address] Joyce Tapia MD 505 [place] [address] 09/17/2024 9:30 AM EDT Medication Management [facility] 505 [place] [address] Cristal Muhammad, PharmD 230 [place] [address] 10/18/2024 10:00 AM EDT Clinical Support [facility] 505 [place], [place] [phone] Katherine Casper, MAKEDA 505 [place] [address] documented as of this encounter Visit Diagnoses Diagnosis Status post surgical removal of nail matrix of toe of left foot documented in this encounter Care Teams Chocolate Refining Roller Relationship Specialty Start Date End Date Joyce Tapia MD [address] [place] [address] PCP - General Family Medicine 06/19/12 documented as of this encounter
--- OUTSIDE RECORDS SUMMARY | 2024-08-16 12:05 | XMS_ITS | Encounter Summary ---
Author Organization [employer] Address [address] [facility] [address] 7t [place] [address] Care Team Providers Care Supervisor Baking Name Role Phone Joyce Tapia MD Primary Care Provider [phone] Reason for Visit * Reason Onset Date Comments Med Refill 11/22/2022 Encounter Details Date Type Department Care Team (Late st Contact Info) Description 11/22/2022 Telephone [facility] 230 [place] [address] Joyce Tapia MD [address] [place], [place] [phone] Med Refill Social History Tobacco Use Types [...] t he electric, gas, oil or water [employer] threatened to shut off services in your [...] [facility] 505 [place] [address] Joyce Tapia MD 505 [place] [address] 09/17/2024 9:30 AM EDT Medication Management [facility] 505 [place] [address] Cristal Muhammad, PharmD 230 [place] [address] 10/18/2024 10:00 AM EDT Clinical Support [facility] 505 [place] [address] Katherine Casper, MAKEDA 505 [place] [address] documented as of this encounter Visit Diagnoses Not on filedocumented in this encounter Care Teams Supervisor Baking Relationship Specialty Start Date End Date Joyce Tapia MD [address] [place] [address] PCP - General Family Medicine 06/19/12 documented as of this encounter
--- OUTSIDE RECORDS SUMMARY | 2024-08-16 12:05 | XMS_ITS | Encounter Summary ---
Author Organization [employer] Address [address] [facility] [address] 7t [place] [address] Care Team Providers Care Mortgage Consultant Name Role Phone Joyce Tapia MD Primary Care Provider [phone] Reason for Visit * Reason Onset Date Comments Med Refill 01/20/2023 Encounter Details Date Type Department Care Team (Late st Contact Info) Description 01/20/2023 Telephone [facility] MED[facility] 230 [place] [address] Joyce Tapia MD [address] [place], [place] [phone] Med Refill Social History Tobacco Use Types [...] * Telephone Encounter - [facility]arc[employer] Maurisio - 01/20/2023 8:07 AM EDT Tc from pt requesting a med refill for oxyCODONE (Roxicodone) 5 MG immediate release tablet documented in this encounter Plan of Treatment Upcoming Encounters Date Type Department Care Team (Late st Contact Info) Description 09/06/2024 8:30 AM EST Office Visit [facility] 505 [place] [address] Joyce Tapia MD 505 [place], [place] 09/17/2024 9:30 AM EDT Medication Management [facility] 505 [place] [address] Cristal Muhammad PharmD 230 [place] [address] 10/18/2024 10:00 AM EDT Clinical Support [facility] 505 [place], [place] [phone] Katherine Casper, MAKEDA 505 [place], [place] documented as of this encounter Visit Diagnoses Not on filedocumented in this encounter Care Teams Mortgage Consultant Relationship Specialty Start Date End Date Joyce Tapia MD 230 [place] [address] PCP - General Family Medicine 06/19/12 documented as of this encounter
--- OUTSIDE RECORDS SUMMARY | 2024-08-16 12:05 | XMS_ITS | Encounter Summary ---
Author Organization [employer] Address [address] [facility] [address] 7t [place] [address] Care Team Providers Care Brownfield Redevelopment Site Manager Name Role Phone Joyce Tapia MD Primary Care Provider [phone] Reason for Visit * Reason Onset Date Comments Med Refill 11/30/2022 Encounter Details Date Type Department Care Team (Late st Contact Info) Description 11/30/2022 Telephone [facility] MEDICINE 230 [place] [address] Joyce Tapia MD [address] [place], [place] [phone] Med Refill Social History Tobacco Use Types [...] t he electric, gas, oil or water [employer] threatened to shut off services in your [...] , pt would like script sent to [facility] pharmacy. documented in this encounter Plan of Treatment Upcoming Encounters Date Type Department Care Team (Late st Contact Info) Description 09/06/2024 8:30 AM EST Office Visit [facility] MED [facility]ED[facility] 505 [place] [address] Joyce Tapia MD 505 [place] [address] 09/17/2024 9:30 AM EDT Medication Management [facility] 505 [place] [address] Cristal Muhammad, PharmD 230 [place] [address] 10/18/2024 10:00 AM EDT Clinical Support [facility] 505 [place] [address] Katherine Casper, AMKEDA 505 [place] [address] documented as of this encounter Visit Diagnoses Not on filedocumented in this encounter Care Teams Brownfield Redevelopment Site Manager Relationship Specialty Start Date End Date Joyce Tapia MD [address] [place] [address] PCP - General Family Medicine 06/19/12 documented as of this encounter
--- OUTSIDE RECORDS SUMMARY | 2024-08-16 12:05 | XMS_ITS | Encounter Summary ---
Author Organization [employer] Address [address] [facility] [address] 7t [place] [address] Care Team Providers Care Paraoptometric Name Role Phone Joyce Tapia MD Primary Care Provider [phone] Reason for Visit * Reason Onset Date Comments Med Refill 02/28/2024 Encounter Details Date Type Department Care Team (Late st Contact Info) Description 02/28/2024 Telephone [facility] 230 [place] [address] Joyce Tapia MD [address] [place], [place] [phone] Med Refill Social History Tobacco Use Types [...] immediate release tablet To be sent to: [facility] - [place], [place] - [address] [place] [address] documented in this encounter Plan of Treatment Upcoming Encounters Date Type Department Care Team (Late st Contact Info) Description 09/06/2024 8:30 AM EST Office Visit [facility] 505 [place] [address] Joyce Tapia MD 505 [place] [address] 09/17/2024 9:30 AM EDT Medication Management [facility] 505 [place] [address] Cristal Muhammad, PharmD 230 [place] [address] 10/18/2024 10:00 AM EDT Clinical Support [facility] 505 [place], [place] [phone] Katherine Casper, MAKEDA 505 [place], [place] documented as of this encounter Visit Diagnoses Not on filedocumented in this encounter Care Teams Paraoptometric Relationship Specialty Start Date End Date Joyce Tapia MD 230 [place] [address] PCP - General Family Medicine 06/19/12 documented as of this encounter
--- OUTSIDE RECORDS SUMMARY | 2024-08-16 12:05 | XMS_ITS | Encounter Summary ---
Author Organization [employer] Address [address] [facility] [address] 7t [place] [address] Care Team Providers Care Blood Bank Specialist Name Role Phone Joyce Tapia MD Primary Care Provider [phone] Reason for Visit * Reason Onset Date Comments Med Refill 10/01/2022 Encounter Details Date Type Department Care Team (Late st Contact Info) Description 10/01/2022 Telephone [facility] MEDICINE 230 [place], [place] [phone] Joyce Tapia MD [address] [place], [place] [phone] Med Refill Social History Tobacco Use Types [...] [facility] 505 [place] [address] Joyce Tapia MD 505 [place] [address] 09/17/2024 9:30 AM EDT Medication Management [facility] 505 [place] [address] Cristal Muhammad, PharmD 230 [place] [address] 10/18/2024 10:00 AM EDT Clinical Support [facility] 505 [place] [address] Katherine Casper, MAKEDA 505 [place] [address] documented as of this encounter Visit Diagnoses Not on filedocumented in this encounter Care Teams Blood Bank Specialist Relationship Specialty Start Date End Date Joyce Tapia MD [address] [place] [address] PCP - General Family Medicine 06/19/12 documented as of this encounter
--- OUTSIDE RECORDS SUMMARY | 2024-08-16 12:05 | XMS_ITS | Encounter Summary ---
Author Organization [employer] Address [address] [facility] 7t [place] [address] Care Team Providers Care Engine Room Operator Name Role Phone Joyce Tapia MD Primary Care Provider [phone] Reason for Visit * Reason Onset Date Comments Med Refill 08/01/2024 Encounter Details Date Type Department Care Team (Late st Contact Info) Description 08/01/2024 Refill [facility] MEDICINE 230 [place] [address] Emerson Keith MD 505 [place] [address] Status post surgical removal of nail matrix [...] AM EST Office Visit [facility] 505 [place] [address] Joyce Tapia MD 505 [place] [address] 09/17/2024 9:30 AM EDT Medication Management [facility] 505 [place] [address] Cristal Muhammad, BobD 230 [place] [address] 10/18/2024 10:00 AM EDT Clinical Support [facility] 505 [place] [address] Katherine Casper, MAKEDA 505 [place] [address] documented as of this encounter Visit Diagnoses Diagnosis Status post surgical removal of nail matrix of toe of left foot documented in this encounter Care Teams Engine Room Operator Relationship Specialty Start Date End Date Joyce Tapia MD 230 [place] [address] PCP - General Family Medicine 06/19/12 documented as of this encounter
--- OUTSIDE RECORDS SUMMARY | 2024-08-16 12:05 | XMS_ITS | Encounter Summary ---
Author Organization [employer] [facility] Address [address] [facility] 7t [place] [address] Care Team Providers Care Tailer In Name Role Phone Joyce Tapia MD Primary Care Provider [phone] Reason for Visit * Reason Comments Med Refill Encounter Details Date Type Department Care Team (Late st Contact Info) Description 10/03/2023 Refill [facility] 505 [place] [address] Joyce Tapia MD 505 [place] [address] Arthropathy Social History Tobacco Use Types Packs/Day [...] Description 09/06/2024 8:30 AM EST Office Visit [facility] 505 [place] [address] Joyce Tapia MD 505 [place] [address] 09/17/2024 9:30 AM EDT Medication Management [facility] MED & PEDS 505 [place] [address] Cristal Muhammad PharmD 230 [place] [address] 10/18/2024 10:00 AM EDT Clinical Support [facility] 505 [place] [address] Katherine Casper, RN 505 [place] [address] documented as of this encounter Visit Diagnoses Diagnosis Arthropathy Unspecified arthropathy, site unspecified documented in this encounter Care Teams Tailer In Relationship Specialty Start Date End Date Joyce Tapia MD 230 [place] [address] PCP - General Family Medicine 06/19/12 documented as of this encounter
--- OUTSIDE RECORDS SUMMARY | 2024-08-16 12:05 | XMS_ITS | Encounter Summary ---
Author Organization [employer] Address [address] [facility] [address] 7t [place] [address] Care Team Providers Care Patient Ombudsperson Name Role Phone Joyce Tapia MD Primary Care Provider [phone] Reason for Visit * Reason Onset Date Comments Med Refill 07/13/2024 Encounter Details Date Type Department Care Team ([facility] st Contact Info) Description 07/13/2024 Refill [facility]EDS 505 [place], [place] [phone] Joyce Tapia MD 505 [place] [address] Social History Tobacco Use Types Packs/Day Years [...] Description 09/06/2024 8:30 AM EST Office Visit [facility] 505 [place] [address] Joyce Tapia MD 505 [place] [address] 09/17/2024 9:30 AM EDT Medication Management [facility] 505 [place] [address] Cristal Muhammad, PharmD 230 [place] [address] 10/18/2024 10:00 AM EDT Clinical Support [facility] [address] [place] [address] Katherine Casper, RN 505 [place] [address] documented as of this encounter Visit Diagnoses Not on filedocumented in this encounter Care Teams Patient Ombudsperson Relationship Specialty Start Date End Date Joyce Tapia MD 230 [place] [address] PCP - General Family Medicine 06/19/12 documented as of this encounter
--- OUTSIDE RECORDS SUMMARY | 2024-08-16 12:05 | XMS_ITS | Encounter Summary ---
Author Organization [employer] Address [address] [facility] [address] 7t [place] [address] Care Team Providers Care Sales Record Clerk Name Role Phone Joyce Tapia MD Primary Care Provider [phone] Reason for Visit * Reason Onset Date Comments Med Refill 01/03/2023 Encounter Details Date Type Department Care Team (Late st Contact Info) Description 01/03/2023 Telephone [facility] MEDICINE 230 [place] [address] Joyce Tapia MD [address] [place], [place] [phone] Med Refill Social History Tobacco Use Types [...] Office Visit [facility] 505 [place] [address] Joyce Tapia MD 505 [place] [address] 09/17/2024 9:30 AM EDT Medication Management [facility] 505 [place] [address] Cristal Muhammad, PharmD 230 [place] [address] 10/18/2024 10:00 AM EDT Clinical Support [facility] 505 [place] [address] Katherine Casper, MAKEDA 505 [place] [address] documented as of this encounter Visit Diagnoses Not on filedocumented in this encounter Care Teams Sales Record Clerk Relationship Specialty Start Date End Date Joyce Tapia MD [address] [place] [address] PCP - General Family Medicine 06/19/12 documented as of this encounter
--- OUTSIDE RECORDS SUMMARY | 2024-08-16 12:06 | XMS_ITS | Encounter Summary ---
Author Organization [employer] Address [address] [facility] 7t [place] [address] Care Team Providers Care Manufacturing Electrician Name Role Phone Joyce Tapia MD Primary Care Provider Encounter Details Date Type Department Care Team (Late Contact Info) Description 10/26/2022 Orders Only [facility]EDS 505 [place], [place] [phone] Emerson Keith MD 505 [place], [place] [phone] Social History Tobacco Use Types Packs/Day Years [...] Description 09/06/2024 8:30 AM EST Office Visit [facility]S 505 [place], [place] [phone] Joyce Tapia MD 505 [place] [address] 09/17/2024 9:30 AM EDT Medication Management [facility] MED [facility] PEDS 505 [place] [address] Cristal Muhammad PharmD 230 [place] [address] 10/18/2024 10:00 AM EDT Clinical Support [facility] 505 [place] [address] Katherine Casper, MAKEDA 505 [place] [address] documented as of this encounter Visit Diagnoses Not on filedocumented in this encounter Care Teams Manufacturing Electrician Relationship Specialty Start Date End Date Joyce Tapia MD 230 [place] [address] PCP - General Family Medicine 06/19/12 documented as of this encounter
--- OUTSIDE RECORDS SUMMARY | 2024-08-16 12:06 | XMS_ITS | Encounter Summary ---
Author Organization [employer] Address [address] [facility] 7t [place] [address] Care Team Providers Care Pharmacy Technician Infusion Name Role Phone Joyce Tapia MD Primary Care Provider [phone] Reason for Visit * Reason Onset Date Comments Med Refill 04/05/2024 Encounter Details Date Type Department Care Team ([facility] st Contact Info) Description 04/05/2024 Refill [facility]S 505 [place], [place] [phone] Joyce Tapia MD 505 [place] [address] Status post surgical removal of nail matrix [...] 8:30 AM EST Office Visit [facility] MED & PEDS 505 [place] [address] Joyce Tapia MD 505 [place] [address] 09/17/2024 9:30 AM EDT Medication Management [facility] MED & PEDS 505 [place] [address] Cristal Muhammad, BobD 230 [place] [address] 10/18/2024 10:00 AM EDT Clinical Support [facility] MED & PEDS 505 [place] [address] Katherine Casper, MAKEDA 505 [place] [address] documented as of this encounter Visit Diagnoses Diagnosis Status post surgical removal of nail matrix of toe of left foot documented in this encounter Care Teams Pharmacy Technician Infusion Relationship Specialty Start Date End Date Joyce Tapia MD 230 [place] [address] PCP - General Family Medicine 06/19/12 documented as of this encounter
--- OUTSIDE RECORDS SUMMARY | 2024-08-16 12:06 | XMS_ITS | Encounter Summary ---
Author Organization [employer] Address [address] [facility] [address] 7t [place] [address] Care Team Providers Care Soil Checker Name Role Phone Joyce Tapia MD Primary Care Provider [phone] Reason for Visit * Reason Onset Date Comments Med Refill 06/25/2024 Encounter Details Date Type Department Care Team (Late st Contact Info) Description 06/25/2024 Refill [facility] MEDICINE 230 [place] [address] Joyce Tapia MD [address] [place] [address] Status post surgical removal of nail matrix [...] [facility] 505 [place] [address] Joyce Tapia MD 505 [place] [address] 09/17/2024 9:30 AM EDT Medication Management [facility] PED[facility] 505 [place] [address] Cristal Muhammad PharmD 230 [place] [address] 10/18/2024 10:00 AM EDT Clinical Support [facility] 505 [place] [address] Katherine Casper, RN 505 [place] [address] documented as of this encounter Visit Diagnoses Diagnosis Status post surgical removal of nail matrix of toe of left foot documented in this encounter Care Teams Soil Checker Relationship Specialty Start Date End Date Joyce Tapia MD 230 [place] [address] PCP - General Family Medicine 06/19/12 documented as of this encounter
--- OUTSIDE RECORDS SUMMARY | 2024-08-16 12:06 | XMS_ITS | Encounter Summary ---
Author Organization [facility] Address [address] [place] [address] 7t [place] [address] Care Team Providers Care Commutator Tester Name Role Phone Joyce Tapia MD Primary Care Provider [phone] Reason for Visit * Reason Comments Med Refill Encounter Details Date Type Department Care Team (Late Contact Info) Description 06/12/2023 Refill [facility] MED & PEDS 505 [place], [place] [phone] Christy Ray MD 505 [place] [address] Muscle spasm Social History Tobacco Use Types [...] Description 09/06/2024 8:30 AM EST Office Visit [facility] MED & PEDS 505 [place], [place] [phone] Joyce Tapia MD 505 [place] [address] 09/17/2024 9:30 AM EDT Medication Management [facility] MED & PEDS 505 [place] [address] Cristal Muhammad PharmD 230 [place] [address] 10/18/2024 10:00 AM EDT Clinical Support [facility] MED [facility] PEDS 505 [place] [address] Katherine Casper, RN 505 [place] [address] documented as of this encounter Visit Diagnoses Diagnosis Muscle spasm Spasm of muscle documented in this encounter Care Teams Commutator Tester Relationship Specialty Start Date End Date Joyce Tapia MD 230 [place] [address] PCP - General Family Medicine 06/19/12 documented as of this encounter
== END 2024-08-16 11:27 | disposition home or self-care (01) ==
LOC: HO.MAMMO 11:26
PROVIDERS: PCP Student in an Organized Health Care Education/Training Program; Visit Provider Student in an Organized Health Care Education/Training Program
DX: Z13.89 Encounter for screening for other disorder (principal)

== ENCOUNTER 2024-08-20 18:36 | Emergency (ER) | payer OTHER, SELFPAY ==
--- NOTE | 2024-08-20 | ECG_ITS ---
Test Reason : CHEST PAIN Blood Pressure : */* mmHG Vent. Rate : 67 BPM Atrial Rate : 67 BPM P-R Int : 156 ms QRS Dur : 70 ms QT Int : 386 ms P-R-T Axes : 43 34 30 degrees QTcB Int : 407 ms Normal sinus rhythm Normal ECG When compared with ECG of 27-Dec-2023 09:01, No significant change was found Referred By: Generic ED Physician Electronically Signed By: VASILE ARCE
--- NOTE | ~2024-08-20 | XR_ITS ---
CLINICAL HISTORY: CXR 1 view chest x-ray Comparison: None Findings: No consolidation, pneumothorax, or pleural effusion. Heart size is normal. Degenerative changes include imaged AC joints. IMPRESSION: No consolidation. This document has been electronically signed by: Alcides Herring MD on 08/20/2024 20:47:34
[2024-08-20 18:47] VITALS: BP 106/64; PULSE 84; O2SAT 99
[2024-08-20 18:54] VITALS: BP 100/67; PULSE 77; RESP 18; TEMP 36.6; O2SAT 100; BMI 29.6
--- OUTSIDE RECORDS SUMMARY | 2024-08-20 19:07 | XMS_ITS | Encounter Summary ---
Author Organization [email or web address] Address [address] [place] [address] Care Team Providers Care Coal Briquette Machine Operator Name Role Phone Joyce Tapia MD Primary Care Provider [phone] Reason for Referral * Consultation (Urgent) - Pending Review Specialty Diagnoses / Procedures Referred By Melanie t Referred To Contact Pharmacy Diagnoses Type 2 diabetes mellitus without complication, without long-term current use of insulin (CMS/HCC) Joyce Tapia MD [address] [place] [address] Phone: tel: fax: Referral ID Status Reason Start Date Expiration Date Visits Requested Visits Authorized [id number] Pending Review Consult and Treat 08/02/2024 08/02/2025 6 6 Encounter Details Date Type Department Care Team ([facility] st Contact Info) Description 08/02/2024 Orders Only [facility] [address] [place] [address] Joyce Tapia MD [address] [place] [address] Type 2 diabetes mellitus without complication, without [...] Upcoming Encounters Date Type Department Care Team ([facility] Contact Info) Description 09/06/2024 8:30 AM EST Office Visit [facility] [address] [place] [address] Joyce Tapia MD [address] [place] [address] 09/17/2024 9:30 AM EDT Medication Management [facility] [address] [place] [address] Cristal Muhammad, BobD [address] [place] [address] 10/18/2024 10:00 AM EDT Clinical Support [facility] [address] [place] [address] Katherine Casper, MAKEDA [address] [place] [phone] Scheduled Referrals Name Type Priority Associated Diagnoses Orde r Schedule Referral to Pharmacy CDTM Outpatient Referral Urgent Type 2 diabetes mellitus without complication, without long-term current use of insulin (CMS/HCC) Ordered: 08/02/2024 documented as of this encounter Visit Diagnoses Diagnosis Type 2 diabetes mellitus without complication, without long-term current use of insulin (CMS/HCC)- Primary documented in this encounter Care Teams Coal Briquette Machine Operator Relationship Specialty Start Date End Date Joyce Tapia MD [address] [place] [phone] PCP - General Family Medicine 06/19/12 documented as of this encounter
--- OUTSIDE RECORDS SUMMARY | 2024-08-20 19:07 | XMS_ITS | Encounter Summary ---
Author Organization [employer] Address [address] [place] [address] Care Team Providers Care It Security Project Manager Name Role Phone Joyce Tapia MD Primary Care Provider [phone] Reason for Visit * Reason Comments Med Refill Encounter Details Date Type Department Care Team ([facility] st Contact Info) Description 04/12/2024 Refill [facility] [address] [place], [place] [phone] Joyce Tapia MD [address] [place] [address] Status post surgical removal of nail matrix [...] [facility] [address] [place] [address] Joyce Tapia MD [address] [place] [address] 09/17/2024 9:30 AM EDT Medication Management [facility] MED & PED[facility] [address] [place] [address] Cristal Muhammad, PharmD [address] [place] [address] 10/18/2024 10:00 AM EDT Clinical Support [facility] [address] [place] [address] Katherine Casper, RN [address] [place] [address] documented as of this encounter Visit Diagnoses Diagnosis Status post surgical removal of nail matrix of toe of left foot documented in this encounter Care Teams It Security Project Manager Relationship Specialty Start Date End Date Joyce Tapia MD [address] [place] [address] PCP - General Family Medicine 06/19/12 documented as of this encounter
--- OUTSIDE RECORDS SUMMARY | 2024-08-20 19:07 | XMS_ITS | Encounter Summary ---
Author Organization [employer] Address [address] [facility] [address] [facility] [address] [place] [address] Care Team Providers Care Employment Supervisor Name Role Phone Joyce Tapia MD Primary Care Provider [phone] Encounter Details Date Type Department Care Team [...] [facility] [address] [place] [address] Joyce Tapia MD [address] [place] [address] 09/17/2024 9:30 AM EDT Medication Management [facility] [address] [place] [address] Cristal Muhammad, PharmD [address] [place] [address] 10/18/2024 10:00 AM EDT Clinical Support [facility] [address] [place] [address] Katherine Casper, MAKEDA [address] [place], [place] [phone] documented as of this encounter Procedures Procedure Name Priority Date/Time Associated Diagnosis Comments CREATININE, SERUM Routine 08/01/2024 10: 49 AM EST UREA NITROGEN (BUN) Routine 08/01/2024 1 0:49 AM EST documented in this encounter Results * Creatinine, Serum (08/01/2024 10:49 AM EST) Creatinine, Serum 0.74 0.5 - 1.4 mg/dL [facility] Estimated Glomerular Filt Rate >60 [facility] Comment:Chronic Kidney Disea se: Estimated GFR < 60 mL/min/[id number] Kidney Disease: Estimated GFR < 15 mL/min/1.73m2 08/01/2024 10:4 9 AM EST 08/01/2024 10:49 AM EST us Generic External Data Provider LAB BLOOD ORDERAB LES Final Result Performing Organization Address [facility] Co de Phone Number [facility] [address] [place] [phone] * BUN (Blood Urea Nitrogen) (08/01/2024 10:49 AM EST) Urea Nitrogen (BUN) 13 9 - 16 mg/dL [facility] 08/01/2024 10:4 9 AM EST 08/01/2024 10:49 AM EST us Generic External Data Provider LAB BLOOD ORDERAB LES Final Result Performing Organization Address [facility] Co de Phone Number [facility] [address] [place] [phone] documented in this encounter Visit Diagnoses Not on filedocumented in this encounter Care Teams Employment Supervisor Relationship Specialty Start Date End Date Joyce Tapia MD [address] [place] [phone] PCP - General Family Medicine 06/19/12 documented as of this encounter
--- OUTSIDE RECORDS SUMMARY | 2024-08-20 19:07 | XMS_ITS | Clinical Summary ---
Author Organization [employer] [facility] Address [address] [place] [address] Care Team Providers Care Welding Teacher Name Role Phone Joyce Tapia MD Primary Care Provider [phone] Allergies Active Allergy Reactions Criticality Noted Date [...] bedtime. 120 tablet 11 025 2025 Active pantoprazole (ProtoNix) 40 MG EC tablet Take 1 tablet by mouth 2 times daily. 025 Active Blood Glucose Monitoring Suppl (FreeStyle [place] Lite) w/Device kit Test blood sugar as directed 1 kit Active glucose blood (FREESTYLE LITE) test strip Test blood sugar every day as directed 100 each 025 2025 Active Lancets 33G misc Test blood sugar every day as directed 100 each 11 Active Blood Pressure kit Check blood pressure [...] EVERY NIGHT AT BEDTIME 30 tablet 6 025 Active zolpidem (Ambien) 5 MG tablet TAKE ONE TABLET AT BEDTIME NEEDED FOR SLEEP 30 tablet 025 Active oxyCODONE (Roxicodone) 5 MG immediate release tabletIndicatio ns:Status post surgical removal of nail matrix of toe of left foot Take 1 tablet (5 mg) by mouth every 6 (six) hours if needed for severe pain. 30 tablet 025 Active metFORMIN (Glucophage) 500 MG tablet Take 500 mg by mouth. 022 2024 Discontinued(M ed list cleanup (will not trigger notification to Pharmacy)) sertraline (Zoloft) 100 MG tablet TAKE ONE TABLET EVERY NIGHT AT BEDTIME 30 tablet 6 024 2024 Discontinued varenicline (Chantix) 1 MG tabletIndicatio ns:Smoker TAKE ONE TABLET TWICE DAILY WITH GLASS OF WATER 60 tablet 1 024 02/04/ 2025 Discontinued(D ose adjustment) esomeprazole (NexIUM) [address] capsule Take [...] eorder (will not trigger notification to Pharmacy)) zolpidem (Ambien) 5 MG tablet TAKE ONE TABLET AT BEDTIME NEEDED FOR SLEEP 30 tablet 025 2024 Discontinued oxyCODONE (Roxicodone) 5 MG immediate release tabletIndicatio [...] start before August 16, 2024. 30 tablet 025 2024 Discontinued(R eorder [...] supports PLAN: 1. Follow up with [facility]: Not recommended for follow-up 2. Behavioral Recommendations brianna Adler will reach out to [facility] and/or [facility] if further supports needed Status [...] Encounters Date Type Department Care Team Description 08/17/2024 Refill [facility] MEDICINE [address] [place] [address] Joyce Tapia MD Status post surgical removal of nail matrix of toe of left foot 08/15/2024 Refill [facility] MED & PEDS [address] [place] [address] Joyce Tapia MD 08/15/2024 Refill [facility] MEDICINE [address] [place] [address] Joyce Tapia MD Status post surgical removal of nail matrix of toe of left foot 08/15/2024 Refill [facility] PEDS [address] [place] [address] Joyce Tapia MD Status post surgical removal of nail matrix of toe of left foot 08/10/2024 Refill [facility] PEDS [address] [place] [address] Emerson Keith MD 08/09/2024 10:30 AM EST Telemedicine [facility]S [address] [place] [address] Katherine Casper, job training specialist bilateral low back pain with left-sided sciatica 08/09/2024 Telephone [facility] [address] [place] [address] Katherine Casper, MAKEDA 08/09/2024 Telephone [facility] MEDICINE [address] [place] [phone] Joyce Tapia MD Appt 08/09/2024 Travel 08/08/2024 Refill [facility] MED [facility] PEDS [address] [place] [address] Joyce Tapia MD Status post surgical removal of nail matrix of toe of left foot 08/07/2024 Travel 08/02/2024 Orders Only [facility] MED [facility] PEDS [address] [place] [address] Joyce Tapia MD Type 2 diabetes mellitus without complication, without long-term current use of insulin ([facility]) (Primary Dx) 08/02/[address] [address] Joyce Tapia MD Med Refill 08/01/2024 Orders Only GENERIC EXTERNAL DATA DEPARTMENT Provider, Generic External Data 08/01/2024 Refill [facility] MEDICINE [address] [place] [address] Joyce Tapia MD Status post surgical removal of nail matrix of toe of left foot 08/01/2024 Refill [facility] MEDICINE [address] [place] [address] Emerson Keith MD Status post surgical removal of nail matrix of toe of left foot 07/27/2024 Telephone [facility] MED & PEDS [address] [place] [address] Joyce Tapia MD Med Refill 07/27/2024 Refill [facility] MEDICINE [address] [place] [address] Emerson Keith MD Status post surgical removal of nail matrix of toe of left foot 07/26/2024 Refill [facility] MEDICINE [address] [place] [address] Joyce Tapia MD Status post surgical removal of nail matrix of toe of left foot 07/25/2024 Telephone [facility] MEDICINE [address] [place] [address] Joyce Tapia MD 07/25/2024 Refill [facility] MEDICINE [address] [place] [address] Emerson Keith MD Status post surgical removal of nail matrix of toe of left foot 07/24/2024 Patient Outreach [facility] MED [facility] PEDS [address] [place] [address] Joyce Tapia MD Transition Of Care (Tcm) 07/19/2024 Refill [facility] MED & PEDS [address] [place] [address] Joyce Tapia MD 07/19/2024 Refill [facility] MEDICINE [address] [place] [address] Joyce Tapia MD Status post surgical removal of nail matrix of toe of left foot 07/18/2024 Orders Only GENERIC EXTERNAL DATA DEPARTMENT Provider, Generic External Data 07/13/2024 Refill [facility] MED [facility] PEDS [address] [place] [address] Joyce Tapia MD 07/13/2024 Refill [facility] MEDICINE [address] [place] [address] Amber Palacio MD Smoker 07/13/2024 Refill [facility] MEDICINE [address] [place] [address] Joyce Tapia MD Status post surgical removal of nail matrix of toe of left foot 07/12/2024 Refill [facility] MED [facility] PEDS [address] [place] [address] Joyce Tapia MD Status post surgical removal of nail matrix of toe of left foot 07/09/2024 8:30 AM EST Office Visit [facility] MED [facility] PEDS [address] [place] [address] Joyce Tapia MD Gastroesophageal reflux disease without esophagitis (Primary Dx); Type 2 diabetes mellitus without complication, without long-term current use of insulin ([facility]); Rectal bleeding 07/09/2024 Refill [facility] MED [facility] PEDS [address] [place] [address] Joyce Tapia MD Status post surgical removal of nail matrix of toe of left foot 07/09/2024 Travel 07/08/2024 Refill [facility] [address] [place] [address] Kassi Johnston, [place] Status post surgical removal of nail matrix of toe of left foot 07/02/2024 Refill [facility] [address] [place] [address] Kassi Johnston, [place] Status post surgical removal of nail matrix of toe of left foot 07/02/2024 Telephone [facility] [address] [place] [address] Joyce Tapia MD Med Refill 07/01/2024 Refill [facility] [address] [place] [address] Emerson Keith MD Status post surgical removal of nail matrix of toe of left foot 07/01/2024 Refill [facility] [address] [place] [address] Joyce Tapia MD Pain (Primary Dx) 06/25/2024 Refill [facility] [address] [place] [address] Joyce Tapia MD Status post surgical removal of nail matrix of toe of left foot 06/25/2024 Refill [facility] [address] [place] [address] Joyce Tapia MD Status post surgical removal of nail matrix of toe of left foot 06/23/2024 Refill [facility] [address] [place] [address] Joyce Tapia MD Status post surgical removal of nail matrix of toe of left foot 06/18/2024 Refill [facility] [address] [place] [address] Joyce Tapia MD 06/18/2024 Refill [facility] [address] [place] [address] Joyce Tapia MD Status post surgical removal of nail matrix of toe of left foot 06/14/2024 Refill [facility] [address] [place] [address] Joyce Tapia MD Type 2 diabetes mellitus without complication, without long-term current use of insulin (CMS/HCC) 06/11/2024 Refill [facility] MEDICINE [address] [place] [address] Joyce Tapia MD Status post surgical removal of nail matrix of toe of left foot 06/10/2024 Refill [facility] MED [facility] PEDS [address] [place] [address] Joyce Tapia MD Muscle spasm 06/06/2024 Travel 06/05/2024 Refill [facility] MEDICINE [address] [place] [address] Joyce Tapia MD Status post surgical removal of nail matrix of toe of left foot 06/05/2024 Refill [facility] MEDICINE [address] [place] [address] Joyce Tapia MD Status post surgical removal of nail matrix of toe of left foot 06/04/2024 8:45 AM EST Office Visit [facility] MED [facility] PEDS [address] [place] [address] Joyce Tapia MD Acute bilateral low back pain without sciatica (Primary Dx); Type 2 diabetes mellitus without complication, without long-term current use of insulin (CMS/HCC); Encounter for immunization 06/04/2024 Telephone [facility] MED [facility] PEDS [address] [place] [address] Joyce Tapia MD pcp other 06/04/2024 Travel 06/03/2024 Orders Only [facility] External Provider, [facility] 05/29/2024 Telephone [facility] MED [facility] PEDS [address] [place] [address] Joyce Tapia MD chart prep 05/28/2024 Travel 05/28/2024 Refill [facility] MED [facility] PEDS [address] [place] [address] Joyce Tapia MD Status post surgical removal of nail matrix of toe of left foot 05/28/2024 Telephone [facility] MEDICINE [address] [place] [address] Joyce Tapia MD Med Refill 05/28/2024 Refill [facility] MED [facility] PEDS [address] [place] [address] Joyce Tapia MD Status post surgical removal of nail matrix of toe of left foot 05/24/2024 Telephone [facility] MEDICINE [address] [place] [address] Joyce Tapia MD ER Follow-up 05/24/2024 Telephone [facility] PED[facility] [address] [place] [address] Joyce Tapia MD No Show 05/23/2024 Telephone [facility] PED[facility] [address] [place] [address] Joyce Tapia MD Chart Prep 05/22/2024 Patient Outreach [facility] MEDICINE [address] [place] [address] Joyce Tapia MD 05/22/2024 Refill [facility] MED [facility] PEDS [address] [place] [address] Joyce Tapia MD 05/22/2024 Orders Only GENERIC EXTERNAL DATA DEPARTMENT Provider, Generic External Data 05/21/2024 10:30 AM EST Telemedicine [facility] MED [facility] PEDS [address] [place] [address] Katherine Casper, job training specialist bilateral low back pain with left-sided sciatica 05/21/2024 Refill [facility] MED [facility] PEDS [address] [place] [address] Joyce Tapia MD 05/21/2024 Orders Only GENERIC EXTERNAL DATA DEPARTMENT Provider, Generic External Data 05/21/2024 Refill [facility] MED [facility] PEDS [address] [place] [address] Katherine Casper, RN Status post surgical removal of nail matrix of toe of left foot 05/21/2024 Travel from Last 3 Months Immunizations Name [...] 8:30 AM EST Office Visit [facility] PED[facility] [address] [place] [address] Joyce Tapia MD [address] [place] [address] 09/17/2024 9:30 AM EDT Medication Management [facility] [address] [place] [address] Cristal Muhammad, PharmD [address] [place] [address] 10/18/2024 10:00 AM EDT Clinical Support [facility] PED[facility] [address] [place] [address] Katherine Casper, MAKEDA [address] [place] [address] Health Maintenance Due Date Last Done Comments [...] without long-term current use of insulin (CMS/HCC) XR LUMBAR SPINE 2-3 VIEWS Routine 06/03/2024 [...] Creatinine, Serum 0.74 0.5 - 1.4 mg/dL [facility] Estimated Glomerular Filt Rate >60 [facility] Comment:Chronic Kidney Disea se: Estimated GFR < 60 mL/min/[id number] Kidney Disease: Estimated GFR < 15 mL/min/1.73m2 08/01/2024 10:4 9 AM EST 08/01/2024 10:49 AM EST us Generic External Data Provider LAB BLOOD ORDERAB LES Final Result Performing Organization Address [facility] Co de Phone Number [facility] [address] [place] [address] [phone] * BUN (Blood Urea Nitrogen) (08/01/2024 10:49 AM EST) Urea Nitrogen (BUN) 13 9 - 16 mg/dL [facility] 08/01/2024 10:4 9 AM EST 08/01/2024 10:49 AM EST us Generic External Data Provider LAB BLOOD ORDERAB LES Final Result Performing Organization Address [facility] de Phone Number [facility] [address] [place] [address] [phone] * XR Hand 3+ Views Left (07/21/2024 11:57 PM EST) Anatomical Region Laterality Modality Upper Extremities, Hand Left Radiogra phic Imaging 07/21/2024 11:5 7 PM EST Narrative 07/21/2024 11:59 PM EST ? [facility] ?[address] ?[place] [address] ?XRay Report ? Signed ? Patient: Grover,Nayely ?MR#: [id number] ?? 541 ? : 1960 ?Acct:[id number] ? Age/Sex: 63 / F ?ADM Date: 07/21/ ? Loc: HO.ED ? Attending Dr: ? Ordering Physician: Janel Pitts MD ?? Date of Service: 07/21/24 ?? Procedure(s): XR hand LT min 3V ?? Accession Number(s): [id number] ? cc: Joyce Tapia MD; Janel Pitts [...] MD in OV> ? 07/21/248 ? DD/ ? TD/TT: 07/21/242356 ? Client Relations Specialist: ? Procedure Note Donotuseinterpreter, Image - 07/22/[address] [address] XRay Report Signed Patient: Nayely GroverMR#: [id number] 541 : 1960Acct:[id number] Age/Sex: 63 / FADM Date: 07/21/24 Loc: HO.ED Attending Dr: Ordering Physician: Janel Pitts MD Date of Service: 07/21/24 Procedure(s): XR hand LT min 3V Accession Number(s): [id number] cc: Joyce Tapia MD; Janel Pitts MD [...] in OV> 07/21/242357 DD/ 56 TD/TT: 07/21/242356 Client Relations Specialist: [facility] External Provider IMG XR PROCEDURES Edited Result - Final * Hematoxylin and Eosin Stain (07/18/2024 8:13 AM EST) 07/18/2024 8:13 AM EST 07/18/2024 9:01 AM EST [facility] - 07/20/2024 9:46 AM EST ----- ------- Name: ReillyNayely ?Age/Sex: 63/F ? : 1960 Unit#: [id number] ?? Attend Dr: Donald Pa MD ?Re07/18/24 ?Status: DEP SDC ? Location: HO.SSS ?Disch: ? ----- ------- SPEC : [id number] ?RECD: 07/18/24 ? STATUS: ??SOUT ? REQ NUM: [id number] ? JOSE: 07/18/24 ? SUBM DR: Donald [...] Grover ?Age/Sex: 63/F ? : 1960 Unit#: [id number] ?? Attend Dr: Donald Pa MD ?Re07/18/24 ?Status: DEP SDC ? Location: HO.SSS ?Disch: ? ----- ------- SPEC : [id number] ?RECD: 07/18/24 ? STATUS: ??SOUT ? REQ NUM: [id number] ? JOSE: 07/18/24 ? SUBM DR: Donald Pa MD ? ENTERED: ??07/18/24 ?SP TYPE: Surgical ? OTHR DR: Joyce Tapia MD ? ORDERED: ??HE Stain/9, Gross Micro L4/3, IHC, Special st. 2, H. pylori, AB/PAS ? Copies To: ?? Joyce Tapia MD ?? [facility] ?? [address] ?? [place] [address] ?? [phone] ?? Donald Pa MD ?? [facility] ?? [address] ?? [place] [address] ?? [phone] ----- ------- Signed (signature on file) Ayan Romero MD 07/20/24 0946 ? ----- ------- ? END OF REPORT ? us Generic External Data Provider LAB BLOOD ORDERAB LES Final Result [facility] [address] [place] [address] [phone] * (ABNORMAL) Glucose, Whole Blood (07/18/2024 7:34 AM EST) Glucose, Whole Blood 141(H) 60 - 115 mg/dL [facility] Comment:METER #: [id number] 07/18/2024 7:34 AM EST 07/18/2024 7:38 AM EST us Generic External Data Provider LAB BLOOD ORDERAB LES Final Result Performing Organization Address [facility]/ZIP Co de Phone Number [facility] [address] [place] [phone] * (ABNORMAL) Hemoglobin A1c (07/09/2024 8:59 AM EST) Hemoglobin A1c 6.5(H) <6.0 % [facility] Comment:Hemoglobin A1C Refer ence Range Adults: 4.8 - 6.0 % Non diabetic: < 6.0 % Goal: < 7.0 %Additional Action Suggested: > 8.0 %Note: Hemoglobin A1c results are invalid for patients with abnormal amounts of HbF. Blood transfusions may impact the HbA1c concentration in the patient sample. Estimated Average Glucose 140 mg/dL [facility] Comment:eAG = Estimated ave rage glucose which is %A1C expressed asaverage glucose, using the formula of the A4D-ZwzdjniCxgxaae Glucose study (ADAG), Diabetes Care, Vol.31,#8,2007 Blood Venous blood specimen / Unknown 07/09/2024 8:59 AM EST 07/09/2024 2:20 PM EST us Joyce Tapia MD LAB BLOOD ORDERABLES Final Resul t Performing Organization Address City/[facility]/ZIP Co de Phone Number [facility] [address] [place] [phone] * Hepatic Function Panel (07/09/2024 8:59 AM EST) Bilirubin, Total 0.4 0.0 - 1.0 mg/dL [facility] Bilirubin, Direct 0.2 0.0 - 0.5 mg/dL [facility] Aspartate Amino Transferase 24 5 - 31 U/L [facility] Alanine Aminotransferase 23 0 - 31 U/L [facility] Total Protein 6.5 6.5 - 8.0 g/dL [facility] Albumin Level 3.8 3.5 - 5.0 g/dL [facility] Alkaline Phosphatase 79 39 - 117 U/L [facility] Blood Venous blood specimen / Unknown 07/09/2024 8:59 AM EST 07/09/2024 2:20 PM EST Joyce Tapia MD LAB BLOOD ORDERABLES Final Resul t Performing Organization Address [facility] Co de Phone Number [facility] [address] [place] [phone] * (ABNORMAL) Lipid Panel, Standard (07/09/2024 8:59 AM EST) Triglycerides 86 <150 mg/dL [facility] Comment:Desirable Triglyceri de: less than 150 mg/dLBorderline High Triglyceride 150-199 mg/dLHigh Triglyceride: 200-499 mg/dLVery High Triglyceride: greater than or equal to 5OO mg/dL Cholesterol 181 <200 mg/dL [facility] Comment:Desirable Cholestero l: less than 200 mg/dLBorderline High Cholesterol: 200-239 mg/dLHigh Cholesterol: greater than 239 mg/dL LDL Cholesterol Calculated 100(H) <100 mg/dL [facility] Comment:Desirable LDL: less than 100 mg/dLNear Optimal/Above Optimal LDL: 110- 129 mg/dLBorderline High LDL: 130-159 mg/dLHigh LDL: 160-189 mg/dLVery High LDL: greater than or equal to 190 mg/dL HDL Cholesterol 64 >40 mg/dL [facility] Comment:Desirable HDL: great er than 40 mg/dL Note: This HDL assay may give artificially low results in patients with liver disease. Blood Venous blood specimen / Unknown 07/09/2024 8:59 AM EST 07/09/2024 2:20 PM EST Joyce Tapia MD LAB BLOOD ORDERABLES Final Resul t Performing Organization Address [facility]/ZIP Co de Phone Number [facility] [address] [place] [phone] * (ABNORMAL) Basic Metabolic Panel (07/09/2024 8:59 AM EST) Sodium 142 135 - 145 mmol/L [facility] Potassium 3.7 3.3 - 5.1 mmol/L [facility] Chloride 108 96 - 108 mmol/L [facility] Carbon Dioxide 27 22 - 29 mmol/L [facility] Anion Gap 11(L) 12 - 20 [facility] Urea Nitrogen (BUN) 14 9 - 16 mg/dL [facility] Creatinine, Serum 0.73 0.5 - 1.4 mg/dL [facility] Estimated Glomerular Filt Rate >60 [facility] Comment:Chronic Kidney Disea se: Estimated GFR < 60 mL/min/1.80j8Kyeohn Kidney Disease: Estimated GFR < 15 mL/min/1.73m2 Glucose 142(H) 60 - 115 mg/dL [facility] Calcium 8.8 8.4 - 10.2 mg/dL [facility] Blood Venous blood specimen / Unknown 07/09/2024 8:59 AM EST 07/09/2024 2:20 PM EST Joyce Tapia MD LAB BLOOD ORDERABLES Final Resul t [facility] [address] [place] [phone] * POCT Glucose (07/09/2024 8:41 AM [...] EST Narrative 06/03/2024 12:22 PM EST ? [facility] ?[address] ?[place], [place] [address] ?XRay Report ? Signed ? Patient: Grover,Nayely ?MR#: [id number] ?? 541 ? : 1960 ?Acct:[id number] ? Age/Sex: 63 / F ?ADM Date: 06/03/24 ? Loc: HO.ED ? Attending Dr: ? Ordering Physician: Generic ED Physician ?? Date of Service: 06/03/24 ?? Procedure(s): XR lumbar spine 2-3V ?? Accession Number(s): [id number] ? cc: Generic ED Physician; Joyce Tapia [...] DD/ 1115 ? TD/TT: 06/03/24 1123 ? Client Relations Specialist: ? Procedure Michelle Crawford - 06/03/[address] [address] XRay Report Signed Patient: Nayely GroverMR#: [id number] 541 : 1960Acct:[id number] Age/Sex: 63 / FADM Date: 06/03/24 Loc: HO.ED Attending Dr: Ordering Physician: Generic ED Physician Date of Service: 06/03/24 Procedure(s): XR lumbar spine 2-3V Accession Number(s): [id number] cc: Generic ED Physician; Joyce Tapia MD [...] 06/03/24 1220 DD/ 1115 TD/TT: 06/03/24 1123 Client Relations Specialist: [facility] External Provider IMG XR PROCEDURES Edited Result - Final * (ABNORMAL) Urinalysis, Complete, with Reflex to Culture (05/22/2024 5:33 AM EST) Color Urine Dark Yellow [facility] Appearance Urine Clear [facility] PH 5.5 5.0 - 9.0 [facility] Glucose Urine UA Negative Negative mg/dL [facility] Urine Blood Negative Negative [facility] Specific [place] - Urine >=1.030(H) 1.005 - 1.025 [facility] Urine Protein Negative Neg-Trace mg/dL [facility] Urine Ketones Negative Negative mg/dL [facility] Nitrite Urine Negative Negative [facility] Leukocyte Esterase Urine Negative Negative [facility] RBC Urine 0-2 0 - 2 /HPF [facility] Urine WBC 0-5 0 - 5 /HPF [facility] Urine Squamous Epithelial Cell 0-2 0 - 2 /HPF [facility] Urine Bacteria None Seen None Seen [facility] Hyaline Casts, Urine 0-2 0 - 2 /LPF [facility] 05/22/2024 5:33 AM EST 05/22/2024 5:47 AM EST Narrative [facility] - 05/22/2024 5:54 AM EST [id number], [employer] us Generic External Data Provider LAB URINE ORDERAB LES Final Result [facility] [address] [place] [phone] * CBC auto differential (05/22/2024 5:33 AM EST) Only the most recent of2 resultswithin the time period is included. White Blood Count 7.2 4.8 - 10.8 X10*3/uL [facility] Red Blood Count 4.25 4.20 - 5.50 X10*6/uL [facility] Hemoglobin 12.8 12.0 - 16.0 g/dl [facility] Hematocrit 37.8 37.0 - 47.0 % [facility] Mean Corpuscular Volume 88.9 80.0 - 98.0 fL [facility] Mean Corpuscular Hemoglobin 30.1 27.0 - 33.0 pg [facility] Mean Corpuscular HGB Conc 33.9 31.0 - 35.0 g/dl [facility] Red Cell Distribution Width 12.8 11.0 - 16.0 % [facility] Platelet Count 182 160 - 400 X10*3/uL [facility] Mean Platelet Volume 10.1 9.4 - 12.3 fL [facility] Neutrophils Percent Auto 54.4 45 - 73 % [facility] Imm Gran Pct Auto 0.1 0.0 - 0.4 % [facility] Lymphocytes Percent Auto 35.8 20 - 40 % [facility] Monocytes Percent Auto 6.1 2 - 11 % [facility] Eosinophils Percent Auto 3.3 0 - 4 % [facility] Basophils Percent Auto 0.3 0 - 2 % [facility] NRBC Pct Auto 0.0 0.0 - 0.2 /100WBC [facility] Neutrophils Absolute Auto 3.9 2.0 - 8.3 x10*3/uL [facility] Imm Gran Abs Auto 0.01 0.00 - 0.03 X10*3/uL [facility] Lymphocytes Absolute Auto 2.6 1.2 - 4.9 X10*3/uL [facility] Monocytes Absolute Auto 0.4 0.1 - 1.2 X10*3/uL [facility] Eosinophils Absolute Auto 0.2 0.0 - 0.4 X10*3/uL [facility] Basophils Absolute Auto 0.0 0.0 - 0.2 X10*3/uL [facility] NRBC Abs Auto 0.000 0.0 - 0.012 X10*3/uL [facility] 05/22/2024 5:33 AM EST 05/22/2024 5:47 AM EST us Generic External Data Provider LAB BLOOD ORDERAB LES Final Result [facility] [address] [place] [address] [phone] * (ABNORMAL) Comprehensive Metabolic Panel (05/22/2024 5:33 AM EST) Only the most recent of2 resultswithin the time period is included. Sodium 140 135 - 145 mmol/L [facility] Potassium 3.6 3.3 - 5.1 mmol/L [facility] Chloride 106 96 - 108 mmol/L [facility] Carbon Dioxide 27 22 - 29 mmol/L [facility] Anion Gap 11(L) 12 - 20 [facility] Urea Nitrogen (BUN) 17(H) 9 - 16 mg/dL [facility] Creatinine, Serum 0.78 0.5 - 1.4 mg/dL [facility] Creatinine Clr Calc Pharmacy 73.6 [facility] Comment:Provided height and weight: 170.18 cm,70.4 kg.eGFR (calculated from the MDRD study equation) and eCrCl(calculated from the Cockcroft-Gault equation) are based ondifferent parameters and may not yield comparable results.If eCrCl result is absurd, please check patient'sheight/weight. Estimated Glomerular Filt Rate >60 [facility] Comment:Chronic Kidney Disea se: Estimated GFR < 60 mL/min/1.26u1Pqcajx Kidney Disease: Estimated GFR < 15 mL/min/1.73m2 Glucose 204(H) 60 - 115 mg/dL [facility] Calcium 8.4 8.4 - 10.2 mg/dL [facility] Bilirubin, Total 0.3 0.0 - 1.0 mg/dL [facility] Aspartate Amino Transferase 16 5 - 31 U/L [facility] Alanine Aminotransferase 21 0 - 31 U/L [facility] Total Protein 6.2(L) 6.5 - 8.0 g/dL [facility] Albumin Level 3.6 3.5 - 5.0 g/dL [facility] Alkaline Phosphatase 76 39 - 117 U/L [facility] 05/22/2024 5:33 AM EST 05/22/2024 5:47 AM EST us Generic External Data Provider LAB BLOOD ORDERAB LES Final Result [facility] [address] [place] [address] [phone] * XR Pelvis 1-2 Views (05/21/2024 10:58 AM EST) Anatomical Region Laterality Modality Body, Pelvis Radiographic Yovana ging 05/21/2024 10:5 8 AM EST Narrative 07/17/2024 9:08 AM EST ? [facility] ?[address] ?[place] [address] ?XRay Report ? Signed ? Patient: Grover,Nayely ?MR#: [id number] ?? 541 ? : 1960 ?Acct:[id number] ? Age/Sex: 63 / F ?ADM Date: 05/21/24 ? Loc: HO.XRAY ? Attending Dr: Dex Quintana MD ? Ordering Physician: Dex Quintana MD ?? Date of Service: 05/21/24 ?? Procedure(s): XR pelvis 1-2V ?? Accession Number(s): [id number] ? cc: Dex Quintana MD; Joyce Tapia [...] Martin MD in OV> ?07/17/24 0905 ? DD/DT: 18/ 1058 ? TD/TT: 18/24 1058 ? Client Relations Specialist: WG ? Procedure Note Donotuseinterpreter, Image - 07/17/[address] [address] XRay Report Signed Patient: Nayely GroverMR#: [id number] 541 : 1960Acct:[id number] Age/Sex: 63 / FADM Date: 05/21/24 Loc: HO.XRAY Attending Dr: Dex Quintana MD Ordering Physician: Dex Quintana MD Date of Service: 05/21/24 Procedure(s): XR pelvis 1-2V Accession Number(s): [id number] cc: Dex Quintana MD; Joyce Tapia MD [...] 07/17/24 0905 DD/ 1058 TD/TT: 05/21/24 1058 Client Relations Specialist: [facility] External Provider IMG XR PROCEDURES Final Result * BI Mammogram Screening Tomosynthesis Bilateral (05/28/2023 8:58 AM EST) Anatomical Region Laterality Modality Breast Bilateral Mammography 05/28/2023 8:58 AM EST Narrative 06/03/2023 8:41 AM EST ? [facility] ? [address] ?[place] [address] ? Mammography Report ? Signed ? Patient: Grover,Nayely ?MR#: [id number] ?? 541 ? : 1960 ?Acct:[id number] ? Age/Sex: 62 / F ?ADM Date: 05/28/23 ? Loc: HO.MAMMO ? Attending Dr: Joyce Tapia MD ? Ordering Physician: Joyce Tapia MD ?Results: 1Negati ?? ve ? Date of Service: 05/28/23 ?Follow Up: 1 Year From Orig ?? inal Mammogram ? Procedure(s): MM tomosynthesis screening BI ?? Accession Number(s): [id number] ? cc: Joyce Tapia MD ? EXAMINATION: [...] by Radha Colon MD in OV> ? 06/03/2337 ? DD/ 0858 ? TD/TT: ? Client Relations Specialist: ? Procedure Note Donbernadetteter, Image - 06/03/2023 [facility] [address] [place] [address] Mammography Report Signed Patient: Nayely GroverMR#: [id number] 541 : 1960Acct:[id number] Age/Sex: 62 / FADM Date: 05/28/23 Loc: HO.MAMMO Attending Dr: Joyce Tapia MD Ordering Physician: Joyce Tapia MDResults: 1Negati ve Date of Service: 05/28/23Follow Up: 1 Year From Orig inal Mammogram Procedure(s): MM tomosynthesis screening BI Accession Number(s): [id number] cc: Joyce Tapia MD EXAMINATION: MM SCREENING [...] signed by Radha Colon MD in OV> 06/03/23836 DD/ TD/TT: Client Relations Specialist: Joyce Tapia MD IMG BI PROCEDURES Final [...] Historical Provider HISTORICAL/NON ORDERABLE LABS Final Result [facility] [address] * THINPREP PAP (03/31/2021 9:06 AM [...] historic and ?? current clinical information. ?? Vp Patient : SEE COMMENT [facility] Comment: JXM, CT(ASCP) CT screening location: [facility] [address] ??[address] Interpretation/R esult: Negative for intraepithelial lesion or malignancy. [facility] LMP: NONE GIVEN [facility] Prev. BX: NONE GIVEN [facility] Prev. PAP: 12/2016 NIL/NEG [facility] SOURCE: None given [facility] Statement Of Adequacy: SEE COMMENT [facility] Comment: Satisfactory for evaluation. Endocervical/transformation zone component absent. Age and/or menstrual status not provided 03/31/2021 9:06 AM EDT Noa MARINO LAB PATHOLOGY ORDERABLES Final Result Performing Organization Address [facility] Co de Phone Number [facility] [address] [place] [address], * HPV mRNA E6/E7 (03/31/2021 9:06 AM EDT) HPV nRNA E6/E7 Not Detected Not Detected [facility] Comment: Methodology: Taper/Finisher-Mediated Amplification This assay detects E6/E7 viral messenger RNA (mRNA) from 14 high-risk HPV types (16,18,31,33,35,39,45,51,52,56,58,59,66,68). ? The analytical performance characteristics of this assay have been determined by [employer]. The modifications have not been cleared or approved by the FDA. This assay has been validated pursuant to the CLIA regulations and is used for clinical purposes. ?? For additional information, please refer to http://education.Inmagic/faq/AFM625e5 (This link if provided for information/ educational purposes only.) 03/31/2021 9:06 AM EDT Noa MARINO LAB BLOOD ORDERABLES Patt l Result Performing Organization Address [facility] Co de Phone Number [facility] [address] [place] [address], * Hm Colonoscopy (02/20/2015) Colonoscopy Normal Normal Narrative Zohra Benavidez - 02/20/2015 Repeat in 10 year us Historical Provider HEALTH MAINTENANCE Final Result from Last 3 Months or Most Recently Relevant to Health Maintenance Insurance [facility] Care Teams Welding Teacher Relationship Specialty Start Date End Date Joyce Tapia MD [address] [place] [address] PCP - General Family Medicine 06/19/12
--- OUTSIDE RECORDS SUMMARY | 2024-08-20 19:07 | XMS_ITS | Encounter Summary ---
Author Organization [employer] Address [address] [facility] 7t [place] [address] Care Team Providers Care Buckshot Swage Operator Name Role Phone Joyce Tapia MD Primary Care Provider [phone] Reason for Visit * Reason Onset Date Comments Med Refill 03/17/2023 Encounter Details Date Type Department Care Team (Late st Contact Info) Description 03/17/2023 Telephone [facility] & PEDS [address] [place] [address] Joyce Tapia MD [address] [place] [address] Med Refill Social History Tobacco Use Types [...] [facility] [address] [place] [address] Joyce Tapia MD [address] [place] [address] 09/17/2024 9:30 AM EDT Medication Management [facility] MED & PEDS [address] [place] [address] Cristal Muhammad, BobD [address] [place] [address] 10/18/2024 10:00 AM EDT Clinical Support [facility] MED & PEDS [address] [place] [address] Katherine Casper, RN 505 [place] [address] documented as of this encounter Visit Diagnoses Not on filedocumented in this encounter Care Teams Buckshot Swage Operator Relationship Specialty Start Date End Date Joyce Tapia MD [address] [place] [address] PCP - General Family Medicine 06/19/12 documented as of this encounter
--- OUTSIDE RECORDS SUMMARY | 2024-08-20 19:07 | XMS_ITS | Encounter Summary ---
Author Organization [employer] Address [address] [facility] [address] 7t [place] [address] Care Team Providers Care Logistics Technician Name Role Phone Joyce Tapia MD Primary Care Provider [phone] Reason for Visit * Reason Onset Date Comments Med Refill 04/19/2024 Encounter Details Date Type Department Care Team (Late st Contact Info) Description 04/19/2024 Refill [facility] [address] [place] [address] Joyce Tapia MD [address] [place] [address] Status post surgical removal of nail matrix [...] 09/06/2024 8:30 AM EST Office Visit [facility] MED & PEDS 505 [place] [address] Joyce Tapia MD 505 [place] [address] 09/17/2024 9:30 AM EDT Medication Management [facility] MED & PEDS [address] [place] [address] Cristal Muhammad PharmD 230 [place] [address] 10/18/2024 10:00 AM EDT Clinical Support [facility] MED & PEDS [address] [place] [address] Katherine Casper, RN [address] [place] [address] documented as of this encounter Visit Diagnoses Diagnosis Status post surgical removal of nail matrix of toe of left foot documented in this encounter Care Teams Logistics Technician Relationship Specialty Start Date End Date Joyce Tapia MD [address] [place] [address] PCP - General Family Medicine 06/19/12 documented as of this encounter
--- OUTSIDE RECORDS SUMMARY | 2024-08-20 19:07 | XMS_ITS | Encounter Summary ---
Author Organization [employer] [facility] Address [address] [facility] 7t [place] [address] Care Team Providers Care Reed Fixer Name Role Phone Joyce Tapia MD Primary Care Provider [phone] Reason for Visit * Reason Comments Med Refill Encounter Details Date Type Department Care Team (Late st Contact Info) Description 11/04/2023 Refill [facility] MED & PEDS [address] [place], [place] [phone] Joyce Tapia MD 505 [place] [address] Status post surgical removal of nail matrix [...] [facility] [address] [place], [place] [phone] Joyce Tapia MD [address] [place] [address] 09/17/2024 9:30 AM EDT Medication Management [facility] MED & PEDS [address] [place] [address] Cristal Muhammad PharmD 230 [place] [address] 10/18/2024 10:00 AM EDT Clinical Support [facility] MED & PEDS [address] [place] [address] Katherine Casper, RN 505 [place] [address] documented as of this encounter Visit Diagnoses Diagnosis Status post surgical removal of nail matrix of toe of left foot documented in this encounter Care Teams Reed Fixer Relationship Specialty Start Date End Date Joyce Tapia MD 230 [place] [address] PCP - General Family Medicine 06/19/12 documented as of this encounter
--- OUTSIDE RECORDS SUMMARY | 2024-08-20 19:07 | XMS_ITS | Encounter Summary ---
Author Organization [facility] Address [address] [facility] 7t [place] [address] Care Team Providers Care School Of Nursing Director Name Role Phone Joyce Tapia MD Primary Care Provider [phone] Reason for Visit * Reason Comments Med Refill Encounter Details Date Type Department Care Team (Late st Contact Info) Description 10/24/2023 Refill [facility] [address] [place], [place] [phone] Joyce Tapia MD 505 [place] [address] Status post surgical removal of nail matrix [...] Description 09/06/2024 8:30 AM EST Office Visit [facility] MED & PEDS [address] [place], [place] [phone] Joyce Tapia MD 505 [place] [address] 09/17/2024 9:30 AM EDT Medication Management [facility] MED & PEDS [address] [place] [address] Cristal Muhammad PharmD 230 [place] [address] 10/18/2024 10:00 AM EDT Clinical Support [facility] MED & PEDS [address] [place] [address] Katherine Casper, RN 505 [place] [address] documented as of this encounter Visit Diagnoses Diagnosis Status post surgical removal of nail matrix of toe of left foot documented in this encounter Care Teams School Of Nursing Director Relationship Specialty Start Date End Date Joyce Tapia MD [address] [place] [address] PCP - General Family Medicine 06/19/12 documented as of this encounter
--- OUTSIDE RECORDS SUMMARY | 2024-08-20 19:07 | XMS_ITS | Encounter Summary ---
Author Organization [employer] Address [address] [facility] [address] 7t [place] [address] Care Team Providers Care Operator Helper Name Role Phone Joyce Tapia MD Primary Care Provider [phone] Reason for Visit * Reason Onset Date Comments Med Refill 03/04/2023 Encounter Details Date Type Department Care Team (Late st Contact Info) Description 03/04/[address] [facility] MEDICINE 230 [place] [address] Joyce Tapia MD [address] [place], [place] [phone] Med Refill Social History Tobacco Use Types [...] [facility] MED & PEDS 505 [place] [address] Joyce Tapia MD 505 [place], [place] 09/17/2024 9:30 AM EDT Medication Management [facility] MED & PEDS 505 [place] [address] Cristal Muhammad PharmD 230 [place] [address] 10/18/2024 10:00 AM EDT Clinical Support [facility] MED & PEDS 505 [place], [place] [phone] Katherine Casper, MAKEDA [address] [place], [place] documented as of this encounter Visit Diagnoses Not on filedocumented in this encounter Care Teams Operator Helper Relationship Specialty Start Date End Date Joyce Tapia MD [address] [place] [address] PCP - General Family Medicine 06/19/12 documented as of this encounter
--- OUTSIDE RECORDS SUMMARY | 2024-08-20 19:07 | XMS_ITS | Encounter Summary ---
Author Organization [employer] Address [address] [facility] 7t [place] [address] Care Team Providers Care Scrum Coach Name Role Phone Joyce Tapia MD Primary Care Provider [phone] Reason for Visit * Reason Onset Date Comments Med Refill 10/24/2023 Encounter Details Date Type Department Care Team ([facility] st Contact Info) Description 10/24/2023 Telephone [facility] MEDICINE 230 [place], [place] [phone] Joyce Tapia MD [address] [place] [address] Med Refill Social History Tobacco Use Types [...] tablet To be sent to: [facility] [place] - [address] [facility] documented in this encounter Plan of Treatment Upcoming Encounters Date Type Department Care Team (Late st Contact Info) Description 09/06/2024 8:30 AM EST Office Visit [facility] MED & PEDS 505 [place] [address] Joyce Tapia MD 505 [place] [address] 09/17/2024 9:30 AM EDT Medication Management [facility] MED & PEDS 505 [place] [address] Cristal Muhammad PharmD 230 [place] [address] 10/18/2024 10:00 AM EDT Clinical Support [facility] MED & PEDS 505 [place] [address] Katherine Casper, MAKEDA 505 [place] [address] documented as of this encounter Visit Diagnoses Not on filedocumented in this encounter Care Teams Scrum Coach Relationship Specialty Start Date End Date Joyce Tapia MD 230 [place] [address] PCP - General Family Medicine 06/19/12 documented as of this encounter
--- OUTSIDE RECORDS SUMMARY | 2024-08-20 19:07 | XMS_ITS | Encounter Summary ---
Author Organization [employer] Address [address] [facility] [address] [address] 7t [place] [address] Care Team Providers Care Drier And Grinder Tender Name Role Phone Joyce Tapia MD Primary Care Provider [phone] Reason for Visit * Reason Onset Date Comments Med Refill 08/02/2024 Encounter Details Date Type Department Care Team (Late st Contact Info) Description 08/02/2024 Telephone [facility] MEDICINE 230 [place], [place] [phone] Joyce Tapia MD [address] [place], [place] [phone] Med Refill Social History Tobacco Use Types [...] immediate release tablet To be sent to: [facility]/pharmacy #[id number] [place] - [address] [facility] documented in this encounter Plan of Treatment Upcoming Encounters Date Type Department Care Team ([facility] st Contact Info) Description 09/06/2024 8:30 AM EST Office Visit [facility] MED & PEDS 505 [place] [address] Joyce Tapia MD 505 [place] [address] 09/17/2024 9:30 AM EDT Medication Management [facility] MED & PEDS 505 [place] [address] Cristal Muhammad, PharmD [address] [place] [address] 10/18/2024 10:00 AM EDT Clinical Support [facility] MED [facility]EDS 505 [place] [address] Katherine Casper, RN 505 [place] [address] documented as of this encounter Visit Diagnoses Not on filedocumented in this encounter Care Teams Drier And Grinder Tender Relationship Specialty Start Date End Date Joyce Tapia MD [address] [place] [address] PCP - General Family Medicine 06/19/12 documented as of this encounter
--- OUTSIDE RECORDS SUMMARY | 2024-08-20 19:07 | XMS_ITS | Encounter Summary ---
Author Organization [employer] Address [address] [facility] [address] 7t [place] [address] Care Team Providers Care Wellness Coordinator Name Role Phone Joyce Tapia MD Primary Care Provider [phone] Encounter Details Date Type Department Care Team [...] 8:30 AM EST Office Visit [facility] MED & PEDS [address] [place] [address] Joyce Tapia MD 505 [place] [address] 09/17/2024 9:30 AM EDT Medication Management [facility] MED & PEDS [address] [place] [address] Cristal Muhammad, PharmD 230 [place] [address] 10/18/2024 10:00 AM EDT Clinical Support [facility] MED & PEDS [address] [place] [address] Katherine Casper, RN 505 [place] [address] documented as of this encounter Visit Diagnoses Not on filedocumented in this encounter Care Teams Wellness Coordinator Relationship Specialty Start Date End Date Joyce Tapia MD [address] [place] [address] PCP - General Family Medicine 06/19/12 documented as of this encounter
--- OUTSIDE RECORDS SUMMARY | 2024-08-20 19:07 | XMS_ITS | Encounter Summary ---
Author Organization [employer] Address [address] [facility] 7t [place] [address] Care Team Providers Care Ceramic Design Engineer Name Role Phone Joyce Tapia MD Primary Care Provider [phone] Reason for Visit * Reason Comments Med Refill Encounter Details Date Type Department Care Team ([facility] st Contact Info) Description 08/10/2024 Refill [facility] MED & PEDS 505 [place], [place] [phone] Emerson Keith MD 505 [place] [address] Social History Tobacco Use Types Packs/Day Years [...] t he electric, gas, oil or water [employer] threatened to shut off services in your [...] [facility] 505 [place] [address] Joyce Tapia MD 505 [place] [address] 09/17/2024 9:30 AM EDT Medication Management [facility] MED & PEDS 505 [place] [address] Cristal Muhammad, PharmD 230 [place] [address] 10/18/2024 10:00 AM EDT Clinical Support [facility] MED & PEDS 505 [place] [address] Katherine Casper, RN 505 [place] [address] documented as of this encounter Visit Diagnoses Not on filedocumented in this encounter Care Teams Ceramic Design Engineer Relationship Specialty Start Date End Date Joyce Tapia MD 230 [place] [address] PCP - General Family Medicine 06/19/12 documented as of this encounter
--- OUTSIDE RECORDS SUMMARY | 2024-08-20 19:07 | XMS_ITS | Encounter Summary ---
Author Organization [employer] Address [address] [facility] 7t [place] [address] Care Team Providers Care Executive Relations Specialist Name Role Phone Joyce Tapia MD Primary Care Provider [phone] Reason for Visit * Reason Onset Date Comments Med Refill 08/08/2024 Encounter Details Date Type Department Care Team (Late st Contact Info) Description 08/08/2024 Refill [facility] MED & PEDS [address] [place], [place] [phone] Joyce Tapia MD 505 [place] [address] Status post surgical removal of nail matrix [...] Description 09/06/2024 8:30 AM EST Office Visit [facility] MED & PEDS [address] [place] [address] Joyce Tapia MD 505 [place] [address] 09/17/2024 9:30 AM EDT Medication Management [facility] MED & PEDS [address] [place] [address] Cristal Muhammad PharmD 230 [place] [address] 10/18/2024 10:00 AM EDT Clinical Support [facility] MED & PEDS [address] [place] [address] Katherine Casper RN 505 [place] [address] documented as of this encounter Visit Diagnoses Diagnosis Status post surgical removal of nail matrix of toe of left foot documented in this encounter Care Teams Executive Relations Specialist Relationship Specialty Start Date End Date Joyce Tapia MD [address] [place] [address] PCP - General Family Medicine 06/19/12 documented as of this encounter
--- OUTSIDE RECORDS SUMMARY | 2024-08-20 19:07 | XMS_ITS | Encounter Summary ---
Author Organization [employer] Address [address] [facility] 7t [place] [address] Care Team Providers Care Amplifier Mechanic Name Role Phone Joyce Tapia MD Primary Care Provider [phone] Reason for Visit * Reason Comments Transition Of Care (Tcm) Encounter Details Date Type Department Care Team ([facility] st Contact Info) Description 07/24/2024 Patient Outreach [facility] MED & PEDS [address] [place], [place] [phone] Joyce Tapia MD 505 [place], [place] [phone] Transition Of Care (Tcm) Social History Tobacco [...] t he electric, gas, oil or water [employer] threatened to shut off services in your [...] 07/24/24 0846 Hospital Discharges and Admission for [facility] Type of Visit Emergency Department Date of Admission/Visit 07/22/24 Date of Discharge 07/22/24 Facility [facility] Diagnosis left hand injury Disposition Discharged Home [...] [facility] MED & PEDS [address] [place] [address] Joyce Tapia MD 505 [place] [address] 09/17/2024 9:30 AM EDT Medication Management [facility] MED & PEDS [address] [place] [address] Cristal Muhammad, PharmD 230 [place] [address] 10/18/2024 10:00 AM EDT Clinical Support [facility] MED & PEDS [address] [place] [address] Katherine Casper, RN [address] [place] [address] documented as of this encounter Visit Diagnoses Not on filedocumented in this encounter Care Teams Amplifier Mechanic Relationship Specialty Start Date End Date Joyce Tapia MD [address] [place] [address] PCP - General Family Medicine 06/19/12 documented as of this encounter
--- OUTSIDE RECORDS SUMMARY | 2024-08-20 19:07 | XMS_ITS | Encounter Summary ---
Author Organization [employer] Address [address] [facility] [address] 7t [place] [address] Care Team Providers Care Dredge Captain Name Role Phone Joyce Tapia MD Primary Care Provider [phone] Reason for Visit * Reason Onset Date Comments Appt 08/09/2024 Encounter Details Date Type Department Care Team ([facility] st Contact Info) Description 08/09/2024 Telephone [facility] MEDICINE 230 [place], [place] [phone] Joyce Tapia MD [address] [employer] [place], [place] [phone] Appt Social History Tobacco Use Types Packs/Day [...] can be changed for a phone visit. [phone] documented in this encounter Plan of Treatment Upcoming Encounters Date Type Department Care Team (Late st Contact Info) Description 09/06/2024 8:30 AM EST Office Visit [facility] MED & PEDS 505 [place] [address] Joyce Tapia MD 505 [place] [address] 09/17/2024 9:30 AM EDT Medication Management [facility] MED & PEDS 505 [place] [address] Cristal Muhammad, BobD 230 [place] [address] 10/18/2024 10:00 AM EDT Clinical Support [facility] MED & PEDS 505 [place] [address] Katherine Casper, MAKEDA 505 [place] [address] documented as of this encounter Visit Diagnoses Not on filedocumented in this encounter Care Teams Dredge Captain Relationship Specialty Start Date End Date Joyce Tapia MD [address] [place] [address] PCP - General Family Medicine 06/19/12 documented as of this encounter
--- OUTSIDE RECORDS SUMMARY | 2024-08-20 19:07 | XMS_ITS | Encounter Summary ---
Author Organization [employer] Address [address] [facility] [address] 7t [place] [address] Care Team Providers Care Bobbin Presser Name Role Phone Joyce Tapia MD Primary Care Provider [phone] Reason for Visit * Reason Comments controlled substance treatment Encounter Details Date Type Department Care Team ([facility] Contact Info) Description 08/09/2024 10:30 AM EST Telemedicine [facility] MED & PEDS 505 [place] [address] Katherine Casper, RN 505 [place] [address] Chronic bilateral low back pain with left-sided [...] t he electric, gas, oil or water [employer] threatened to shut off services in your [...] RN - 08/09/2024 10:30 AM EST S: PRINTING PLATE MAKER Televisit. Patient is taking Oxycodone 5mg Q6 hr PRN. Patient states has been taking medication as prescribed. Reports no adverse reactions. Patient cont. With severe pain, especially in the low-mid back. Last appt with PCP on 07/09/24. Patient f/u with ortho. States she recently quit smoking cigarettes, congratulated! Patient denies ETOH, illegal drugs use. No other questions/ concerns at this time. O: PRINTING PLATE MAKER tier 3. PNP checked on 08/09/24. Pill count performed over the phone, patient states she has 6pills remaining, 0 expected. Medications are not being overused. A: Chronic opioid use r/t chronic pain. P: Patient to cont. with current pain medication regimen as needed and take medication only as directed. f/u for next PRINTING PLATE MAKER NV scheduled for 10/18/24 @10am. PRINTING PLATE MAKER Agr. renewal, bpi due at the visit. F/u with PCP 09/06/24. f/u sooner PRN. Patient verbalized understanding and agreed to plan. documented in this encounter Plan of Treatment Upcoming Encounters Date Type Department Care Team ([facility] st Contact Info) Description 09/06/2024 8:30 AM EST Office Visit [facility] MED & PEDS 505 [place] [address] Joyce Tapia MD [address] [place] [address] 09/17/2024 9:30 AM EDT Medication Management [facility] MED & PEDS 505 [place] [address] Cristal Muhammad PharmD 230 [place] [address] 10/18/2024 10:00 AM EDT Clinical Support [facility] MED & PEDS 505 [place] [address] Katherine Casper, RN 505 [place] [address] documented as of this encounter Visit Diagnoses Diagnosis Chronic bilateral low back pain with left-sided sciatica documented in this encounter Care Teams Bobbin Presser Relationship Specialty Start Date End Date Joyce Tapia MD 230 [place] [address] PCP - General Family Medicine 06/19/12 documented as of this encounter
--- OUTSIDE RECORDS SUMMARY | 2024-08-20 19:07 | XMS_ITS | Encounter Summary ---
Author Organization [employer] Address [address] [facility] [address] 7t [place] [address] Care Team Providers Care Public Transit Specialist Name Role Phone Joyce Tapai MD Primary Care Provider [phone] Encounter Details Date Type Department Care Team (Late st Contact Info) Description 07/25/2024 Telephone [facility] MEDICINE 230 [place] [address] Joyce Tapia MD [address] [place], [place] [phone] Social History Tobacco Use Types Packs/Day Years [...] 1:52 PM EST Patient was seen by temper mill operator within the past 6 months and would [...] [facility] MED & PEDS 505 [place] [address] Joyce Tapia MD 505 [place] [address] 09/17/2024 9:30 AM EDT Medication Management [facility] MED & PEDS 505 [place] [address] Cristal Muhammad PharmD 230 [place] [address] 10/18/2024 10:00 AM EDT Clinical Support [facility] MED & PEDS 505 [place] [address] Katherine Casper, MAKEDA 505 [place] [address] documented as of this encounter Visit Diagnoses Not on filedocumented in this encounter Care Teams Public Transit Specialist Relationship Specialty Start Date End Date Joyce Tapia MD 230 [place] [address] PCP - General Family Medicine 06/19/12 documented as of this encounter
--- OUTSIDE RECORDS SUMMARY | 2024-08-20 19:07 | XMS_ITS | Encounter Summary ---
Author Organization [employer] Address [address] [facility] 7t [place] [address] Care Team Providers Care Wrapper Caser Name Role Phone Joyce Tapia MD Primary Care Provider [phone] Reason for Visit * Reason Onset Date Comments Referral 03/09/2023 Encounter Details Date Type Department Care Team ([facility] st Contact Info) Description 03/09/2023 Telephone [facility] CHC MED & PEDS 505 [place], [place] [phone] Joyce Tapia MD 505 [place] [address] Referral Social History Tobacco Use Types Packs/Day [...] wait that long. Please contact pt at [phone] documented in this encounter Plan of Treatment Upcoming Encounters Date Type Department Care Team (Late st Contact Info) Description 09/06/2024 8:30 AM EST Office Visit [facility] MED & PEDS 505 [place] [address] Joyce Tapia MD 505 [place] [address] 09/17/2024 9:30 AM EDT Medication Management [facility] MED & PEDS 505 [place] [address] Cristal Muhammad, BobD 230 [place] [address] 10/18/2024 10:00 AM EDT Clinical Support [facility] MED & PEDS 505 [place] [address] Katherine Casper, RN 505 [place] [address] documented as of this encounter Visit Diagnoses Not on filedocumented in this encounter Care Teams Wrapper Caser Relationship Specialty Start Date End Date Joyce Tapia MD 230 [place] [address] PCP - General Family Medicine 06/19/12 documented as of this encounter
--- OUTSIDE RECORDS SUMMARY | 2024-08-20 19:07 | XMS_ITS | Encounter Summary ---
Author Organization [employer] Address [address] [facility] [address] 7t [place] [address] Care Team Providers Care Director And Professor Name Role Phone Joyce Tapia MD Primary Care Provider [phone] Reason for Visit * Reason Onset Date Comments Med Refill 08/15/2024 Encounter Details Date Type Department Care Team (Late st Contact Info) Description 08/15/[address] [facility] MEDICINE 230 [place] [address] Joyce Tapia MD [address] [place] [address] Status post surgical removal of nail matrix [...] immediate release tablet To be sent to: [facility]/pharmacy #[id number] NAKUL RYDER - [id number] [facility] documented in this encounter Plan of Treatment Upcoming Encounters Date Type Department Care Team (Late st Contact Info) Description 09/06/2024 8:30 AM EST Office Visit [facility] MED & PEDS 505 [place] [address] Joyce Tapia MD 505 [place] [address] 09/17/2024 9:30 AM EDT Medication Management [facility] MED & PEDS 505 [place] [address] Cristal Muhammad, PharmD 230 [place] [address] 10/18/2024 10:00 AM EDT Clinical Support [facility] MED & PEDS 505 [place] [address] Katherine Casper, RN 505 [place] [address] documented as of this encounter Visit Diagnoses Diagnosis Status post surgical removal of nail matrix of toe of left foot documented in this encounter Care Teams Director And Professor Relationship Specialty Start Date End Date Joyce Tapia MD [address] [place] [address] PCP - General Family Medicine 06/19/12 documented as of this encounter
--- OUTSIDE RECORDS SUMMARY | 2024-08-20 19:07 | XMS_ITS | Encounter Summary ---
Author Organization [employer] Address [address] [facility] [address] 7t [place] [address] Care Team Providers Care Loading Dock Hand Name Role Phone Joyce Tapia MD Primary Care Provider [phone] Reason for Visit * Reason Comments Med Refill Encounter Details Date Type Department Care Team ([facility] st Contact Info) Description 08/15/2024 Refill [facility] CHC MED & PEDS 505 [place], [place] [phone] Joyce Tapia MD 505 [place] [address] Social History Tobacco Use Types Packs/Day Years [...] Description 09/06/2024 8:30 AM EST Office Visit [facility] MED & PEDS 505 [place] [address] Joyce Tapia MD 505 [place] [address] 09/17/2024 9:30 AM EDT Medication Management [facility] MED & PEDS 505 [place] [address] Cristal Muhammad, PharmD 230 [place] [address] 10/18/2024 10:00 AM EDT Clinical Support [facility] MED & PEDS 505 [place] [address] Katherine Casper, RN 505 [place] [address] documented as of this encounter Visit Diagnoses Not on filedocumented in this encounter Care Teams Loading Dock Hand Relationship Specialty Start Date End Date Joyce Tapia MD 230 [place] [address] PCP - General Family Medicine 06/19/12 documented as of this encounter
--- OUTSIDE RECORDS SUMMARY | 2024-08-20 19:07 | XMS_ITS | Encounter Summary ---
Author Organization [employer] Address [address] [facility] [facility] [address] 7t [place] [address] Care Team Providers Care Parking Meter Attendant Name Role Phone Joyce Tapia MD Primary Care Provider [phone] Reason for Visit * Reason Onset Date Comments Med Refill 08/17/2024 Encounter Details Date Type Department Care Team (Late st Contact Info) Description 08/17/2024 Refill [facility] MEDICINE 230 [place] [address] Joyce Tapia MD [address] [place] [address] Status post surgical removal of nail matrix [...] [facility] MED & PEDS 505 [place] [address] Joyce Tapia MD 505 [place] [address] 09/17/2024 9:30 AM EDT Medication Management [facility] MED & PEDS 505 [place] [address] Cristal Muhammad PharmD 230 [place] [address] 10/18/2024 10:00 AM EDT Clinical Support [facility] MED & PEDS 505 [place] [address] Katherine Casper, RN 505 [place] [address] documented as of this encounter Visit Diagnoses Diagnosis Status post surgical removal of nail matrix of toe of left foot documented in this encounter Care Teams Parking Meter Attendant Relationship Specialty Start Date End Date Joyce Tapia MD 230 [place] [address] PCP - General Family Medicine 06/19/12 documented as of this encounter
--- OUTSIDE RECORDS SUMMARY | 2024-08-20 19:07 | XMS_ITS | Encounter Summary ---
Author Organization [employer] Address [address] [facility] [address] 7t [place] [address] Care Team Providers Care Apartment Maintenance Technician Name Role Phone Joyce Tapia MD Primary Care Provider [phone] Reason for Visit * Reason Onset Date Comments Med Refill 07/19/2024 Encounter Details Date Type Department Care Team ([facility] st Contact Info) Description 07/19/2024 Refill [facility] CHC MED & PEDS 505 [place], [place] [phone] Joyce Tapia MD 505 [place] [address] Social History Tobacco Use Types Packs/Day Years [...] [facility] 505 [place] [address] Joyce Tapia MD 505 [place] [address] 09/17/2024 9:30 AM EDT Medication Management [facility] MED & PEDS 505 [place] [address] Cristal Muhammad, PharmD 230 [place] [address] 10/18/2024 10:00 AM EDT Clinical Support [facility] MED & PEDS 505 [place] [address] Katherine Casper, RN 505 [place] [address] documented as of this encounter Visit Diagnoses Not on filedocumented in this encounter Care Teams Apartment Maintenance Technician Relationship Specialty Start Date End Date Joyce Tapia MD 230 [place] [address] PCP - General Family Medicine 06/19/12 documented as of this encounter
--- OUTSIDE RECORDS SUMMARY | 2024-08-20 19:07 | XMS_ITS | Encounter Summary ---
Author Organization [employer] Address [address] [facility] [address] 7t [place] [address] Care Team Providers Care Receptionist Clerk Name Role Phone Joyce Tapia MD Primary Care Provider [phone] Reason for Visit * Reason Onset Date Comments Med Refill 04/18/2024 Encounter Details Date Type Department Care Team (Late st Contact Info) Description 04/18/2024 Refill [facility] MEDICINE 230 [place], [place] [phone] Amber Palacio MD 230 [place], [place] [phone] Smoker Social History Tobacco Use Types Packs/Day [...] [facility] MED & PEDS 505 [place] [address] Joyce Tapia MD 505 [place] [address] 09/17/2024 9:30 AM EDT Medication Management [facility] MED & PEDS 505 [place] [address] Cristal Muhammad, PharmD 230 [place] [address] 10/18/2024 10:00 AM EDT Clinical Support [facility] MED & PEDS 505 [place] [address] Katherine Casper, RN 505 [place] [address] documented as of this encounter Visit Diagnoses Diagnosis Smoker Tobacco use disorder documented in this encounter Care Teams Receptionist Clerk Relationship Specialty Start Date End Date Joyce Tapia MD 230 [place] [address] PCP - General Family Medicine 06/19/12 documented as of this encounter
--- OUTSIDE RECORDS SUMMARY | 2024-08-20 19:07 | XMS_ITS | Encounter Summary ---
Author Organization [employer] Address [address] [facility] [address] 7t [place] [address] Care Team Providers Care Colleter Name Role Phone Joyce Tapia MD Primary Care Provider [phone] Encounter Details Date Type Department Care Team [...] [facility] MED & PEDS 505 [place] [address] Joyce Tapia MD 505 [place] [address] 09/17/2024 9:30 AM EDT Medication Management [facility] MED [facility] PEDS 505 [place] [address] Cristal Muhammad, PharmD 230 [place] [address] 10/18/2024 10:00 AM EDT Clinical Support [facility] MED & PEDS 505 [place] [address] Katherine Casper, RN 505 [place] [address] documented as of this encounter Visit Diagnoses Not on filedocumented in this encounter Care Teams Colleter Relationship Specialty Start Date End Date Joyce Tapia MD 230 [place] [address] PCP - General Family Medicine 06/19/12 documented as of this encounter
--- OUTSIDE RECORDS SUMMARY | 2024-08-20 19:07 | XMS_ITS | Encounter Summary ---
Author Organization [employer] Address [address] [facility] [address] [facility] [address] 7t [place] [address] Care Team Providers Care Stave Bolt Equalizer Name Role Phone Joyce Tapia MD Primary Care Provider [phone] Reason for Visit * Reason Onset Date Comments Med Refill 04/11/2024 Encounter Details Date Type Department Care Team ([facility] st Contact Info) Description 04/11/2024 Telephone [facility] CHC MED & PEDS 505 [place], [place] [phone] Joyce Tapia MD 505 [place] [address] Med Refill Social History Tobacco Use Types [...] sent to: [facility] [place], [place] - [address] [place] [address] documented in this encounter Plan of Treatment Upcoming Encounters Date Type Department Care Team ([facility] st Contact Info) Description 09/06/2024 8:30 AM EST Office Visit [facility] MED & PEDS 505 [place] [address] Joyce Tapia MD 505 [place] [address] 09/17/2024 9:30 AM EDT Medication Management [facility] MED & PEDS 505 [place] [address] Cristal Muhammad, PharmD 230 [place] [address] 10/18/2024 10:00 AM EDT Clinical Support [facility] MED & PEDS 505 [place] [address] Katherine Casper, RN 505 [place] [address] documented as of this encounter Visit Diagnoses Not on filedocumented in this encounter Care Teams Stave Bolt Equalizer Relationship Specialty Start Date End Date Joyce Tapia MD [address] [place] [address] PCP - General Family Medicine 06/19/12 documented as of this encounter
--- OUTSIDE RECORDS SUMMARY | 2024-08-20 19:07 | XMS_ITS | Encounter Summary ---
Author Organization [employer] Address [address] [facility] [facility] [address] 7t [place] [address] Care Team Providers Care Lav Crewman Name Role Phone Joyce Tapia MD Primary Care Provider [phone] Encounter Details Date Type Department Care Team ([facility] st Contact Info) Description 08/09/2024 Telephone [facility] CHC MED & PEDS 505 [place], [place] [phone] Katherine Casper, RN 505 [place] [address] Social History Tobacco Use Types Packs/Day Years [...] EST TC to pt regarding message below. 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 documented in this encounter Plan of Treatment Upcoming Encounters Date Type Department Care Team (Late st Contact Info) Description 09/06/2024 8:30 AM EST Office Visit [facility] MED & PEDS 505 [place] [address] Joyce Tapia MD 505 [place] [address] 09/17/2024 9:30 AM EDT Medication Management [facility] MED & PEDS 505 [place] [address] Cristal Muhammad, PharmD 230 [place] [address] 10/18/2024 10:00 AM EDT Clinical Support [facility] MED & PEDS 505 [place] [address] Katherine Casper RN 505 [place] [address] documented as of this encounter Visit Diagnoses Not on filedocumented in this encounter Care Teams Lav Crewman Relationship Specialty Start Date End Date Joyce Tapia MD 230 [place] [address] PCP - General Family Medicine 06/19/12 documented as of this encounter
--- OUTSIDE RECORDS SUMMARY | 2024-08-20 19:07 | XMS_ITS | Encounter Summary ---
Author Organization [employer] Address [address] [facility] 7t [place] [address] Care Team Providers Care Dock Attendant Name Role Phone Joyce Tapia MD Primary Care Provider [phone] Reason for Visit * Reason Onset Date Comments Med Refill 08/15/2024 Encounter Details Date Type Department Care Team (Late st Contact Info) Description 08/15/[address] [facility] CHC MED & PEDS 505 [place], [place] [phone] Joyce Tapia MD 505 [place] [address] Status post surgical removal of nail matrix [...] 8:30 AM EST Office Visit [facility] MED & PEDS 505 [place] [address] Joyce Tapia MD 505 [place] [address] 09/17/2024 9:30 AM EDT Medication Management [facility] MED & PEDS 505 [place] [address] Cristal Muhammad, BobD 230 [place] [address] 10/18/2024 10:00 AM EDT Clinical Support [facility] MED & PEDS 505 [place] [address] Katherine Casper, MAKEDA 505 [place] [address] documented as of this encounter Visit Diagnoses Diagnosis Status post surgical removal of nail matrix of toe of left foot documented in this encounter Care Teams Dock Attendant Relationship Specialty Start Date End Date Joyce Tapia MD 230 [place] [address] PCP - General Family Medicine 06/19/12 documented as of this encounter
--- OUTSIDE RECORDS SUMMARY | 2024-08-20 19:08 | XMS_ITS ---
Author Organization [employer] Address [address] [place] [address] 7 [place] [address] Care Team Providers Care Net Washer Name Role Phone Joyce Tapia MD Primary Care Provider [phone] [employer]NY Status:Enrolled (Active) Start date:10/22/2022 Enrollment date:10/22/2022 Case Team Name Relationship Phone Katherine Casper RN Registered Nurse(Responsible S taff) Continued Care and Services Coordination
--- OUTSIDE RECORDS SUMMARY | 2024-08-20 19:08 | XMS_ITS | Encounter Summary ---
Author Organization [employer] Address [address] [facility] 7t [place] [address] Care Team Providers Care Compounder Name Role Phone Joyce Tapia MD Primary Care Provider [phone] Reason for Visit * Reason Onset Date Comments Med Refill 04/19/2023 Encounter Details Date Type Department Care Team (Late st Contact Info) Description 04/19/2023 Telephone [facility] CHC MED & PEDS 505 [place] [address] Joyce Tapia MD 505 [place] [address] Med Refill Social History Tobacco Use Types [...] Description 09/06/2024 8:30 AM EST Office Visit [facility] MED & PEDS 505 [place] [address] Joyce Tapia MD 505 [place] [address] 09/17/2024 9:30 AM EDT Medication Management [facility] MED & PEDS 505 [place] [address] Cristal Muhammad, BobD 230 [place] [address] 10/18/2024 10:00 AM EDT Clinical Support [facility] MED & PEDS 505 [place] [address] Katherine Casper, RN 505 [place] [address] documented as of this encounter Visit Diagnoses Not on filedocumented in this encounter Care Teams Compounder Relationship Specialty Start Date End Date Joyce Tapia MD 230 [place] [address] PCP - General Family Medicine 06/19/12 documented as of this encounter
--- OUTSIDE RECORDS SUMMARY | 2024-08-20 19:08 | XMS_ITS | Encounter Summary ---
Author Organization [employer] Address [address] [facility] [address] 7t [place] [address] Care Team Providers Care Street Light Wirer Name Role Phone Joyce Tapia MD Primary Care Provider [phone] Reason for Visit * Reason Onset Date Comments Med Refill 07/13/2024 Encounter Details Date Type Department Care Team ([facility] st Contact Info) Description 07/13/[address] [facility] CHC MED & PEDS 505 [place], [place] [phone] Joyce Tapia MD 505 [place] [address] Social History Tobacco Use Types Packs/Day Years [...] [facility] MED & PEDS 505 [place] [address] Joyce Tapia MD 505 [place] [address] 09/17/2024 9:30 AM EDT Medication Management [facility] MED & PEDS 505 [place] [address] Cristal Muhammad, PharmD 230 [place] [address] 10/18/2024 10:00 AM EDT Clinical Support [facility] MED & PEDS 505 [place] [address] Katherine Casper, RN 505 [place] [address] documented as of this encounter Visit Diagnoses Not on filedocumented in this encounter Care Teams Street Light Wirer Relationship Specialty Start Date End Date Joyce Tapia MD 230 [place] [address] PCP - General Family Medicine 06/19/12 documented as of this encounter
--- OUTSIDE RECORDS SUMMARY | 2024-08-20 19:08 | XMS_ITS | Encounter Summary ---
Author Organization [employer] Address [address] [facility] [address] 7t [place] [address] Care Team Providers Care Straight Ruling Machine Operator Name Role Phone Joyce Tapia MD Primary Care Provider [phone] Reason for Visit * Reason Onset Date Comments Referral 04/25/2023 Encounter Details Date Type Department Care Team ([facility] st Contact Info) Description 04/25/2023 Telephone [facility] MEDICINE 230 [place], [place] [phone] Joyce Tapia MD [address] [place], [place] [phone] Referral Social History Tobacco Use Types Packs/Day [...] a referral for gastroenterology for colonoscopy, @ [address], [facility], [address]. Pt stated has been there before for colonoscopy however has been more than 3 years and will need a new referral. Please contact at [phone] documented in this encounter Plan of Treatment Upcoming Encounters Date Type Department Care Team ([facility] st Contact Info) Description 09/06/2024 8:30 AM EST Office Visit [facility] MED & PEDS 505 [place] [address] Joyce Tapia MD 505 [place] [address] 09/17/2024 9:30 AM EDT Medication Management [facility] MED & PEDS 505 [place] [address] Cristal Muhammad, PharmD [address] [facility] [place] [address] 10/18/2024 10:00 AM EDT Clinical Support [facility] MED & PEDS [address] [place] [address] Katherine Casper, RN [address] [place] [address] documented as of this encounter Visit Diagnoses Not on filedocumented in this encounter Care Teams Straight Ruling Machine Operator Relationship Specialty Start Date End Date Joyce Tapia MD [address] [place] [address] PCP - General Family Medicine 06/19/12 documented as of this encounter
--- OUTSIDE RECORDS SUMMARY | 2024-08-20 19:08 | XMS_ITS | Encounter Summary ---
Author Organization [employer] Address [address] [facility] [address] 7t [place] [address] Care Team Providers Care Radiological Equipment Specialist Name Role Phone Joyce Tapia MD Primary Care Provider [phone] Reason for Visit * Reason Onset Date Comments Med Refill 05/08/2024 Encounter Details Date Type Department Care Team (Late st Contact Info) Description 05/08/2024 Refill [facility] MEDICINE 230 [place] [address] oJyce Tapia MD [address] [place] [address] Muscle spasm Social History Tobacco Use Types [...] [facility] MED & PEDS 505 [place] [address] Joyce Tapia MD 505 [place] [address] 09/17/2024 9:30 AM EDT Medication Management [facility] MED & PEDS 505 [place] [address] Cristal Muhammad, PharmD 230 [place] [address] 10/18/2024 10:00 AM EDT Clinical Support [facility] MED & PEDS 505 [place] [address] Katherine Casper, RN 505 [place] [address] documented as of this encounter Visit Diagnoses Diagnosis Muscle spasm Spasm of muscle documented in this encounter Care Teams Radiological Equipment Specialist Relationship Specialty Start Date End Date Joyce Tapia MD 230 [place] [address] PCP - General Family Medicine 06/19/12 documented as of this encounter
--- OUTSIDE RECORDS SUMMARY | 2024-08-20 19:08 | XMS_ITS | Encounter Summary ---
Author Organization [employer] Address [address] [facility] [address] 7t [place] [address] Care Team Providers Care Barrel Filler Name Role Phone Joyce Tapia MD Primary Care Provider [phone] Reason for Visit * Reason Onset Date Comments Med Refill 04/25/2024 Encounter Details Date Type Department Care Team ([facility] st Contact Info) Description 04/25/2024 Telephone [facility] MEDICINE 230 [place] [address] Joyce Tapia MD [address] [place], [place] [phone] Med Refill Social History Tobacco Use Types [...] (Roxicodone) 5 MG To be sent to: [facility] documented in this encounter Plan of Treatment Upcoming Encounters Date Type Department Care Team (Late st Contact Info) Description 09/06/2024 8:30 AM EST Office Visit [facility] MED & PEDS 505 [place] [address] Joyce Tapia MD 505 [place] [address] 09/17/2024 9:30 AM EDT Medication Management [facility] MED & PEDS 505 [place] [address] Cristal Muhammad, PharmD 230 [place] [address] 10/18/2024 10:00 AM EDT Clinical Support [facility] MED & PEDS 505 [place] [address] Katherine Casper, MAKEDA 505 [place] [address] documented as of this encounter Visit Diagnoses Not on filedocumented in this encounter Care Teams Barrel Filler Relationship Specialty Start Date End Date Joyce Tapia MD [address] [place] [address] PCP - General Family Medicine 06/19/12 documented as of this encounter
--- OUTSIDE RECORDS SUMMARY | 2024-08-20 19:08 | XMS_ITS | Encounter Summary ---
Author Organization [employer] [facility] Address [address] [facility] 7t [place] [address] Care Team Providers Care Manager Logistic Name Role Phone Joyce Tapia MD Primary Care Provider [phone] Encounter Details Date Type Department Care Team (Latest Contact Info) Description 03/21/2019 Abstract [facility] CONVERSIONS Dental, Provider, DDS Social History Tobacco [...] Description 09/06/2024 8:30 AM EST Office Visit [facility]C MED & PEDS 505 [place] [address] Joyce Tapia MD 505 [place] [address] 09/17/2024 9:30 AM EDT Medication Management [facility] MED & PEDS 505 [place] [address] Cristal Muhammad, PharmD 230 [place] [address] 10/18/2024 10:00 AM EDT Clinical Support [facility] MED & PEDS 505 [place] [address] Katherine Casper, MAKEDA 505 [place] [address] documented as of this encounter Visit Diagnoses Not on filedocumented in this encounter Care Teams Manager Logistic Relationship Specialty Start Date End Date Joyce Tapia MD [address] [place] [address] PCP - General Family Medicine 06/19/12 documented as of this encounter
--- OUTSIDE RECORDS SUMMARY | 2024-08-20 19:08 | XMS_ITS | Encounter Summary ---
Author Organization [employer] Address [address] [facility] [address] 7t [place] [address] Care Team Providers Care Peer Specialist Name Role Phone Joyce Tapia MD Primary Care Provider [phone] Reason for Visit * Reason Onset Date Comments Med Refill 07/13/2024 Encounter Details Date Type Department Care Team (Late st Contact Info) Description 07/13/2024 Refill [facility] MEDICINE 230 [place], [place] [phone] Amber Palacio MD 230 [place], [place] [phone] Smoker Social History Tobacco Use Types Packs/Day [...] [facility] 505 [place] [address] Joyce Tapia MD 505 [place] [address] 09/17/2024 9:30 AM EDT Medication Management [facility] MED & PEDS 505 [place] [address] Cristal Muhammad, PharmD 230 [place] [address] 10/18/2024 10:00 AM EDT Clinical Support [facility] MED & PEDS 505 [place] [address] Katherine Casper, RN 505 [place] [address] documented as of this encounter Visit Diagnoses Diagnosis Smoker Tobacco use disorder documented in this encounter Care Teams Peer Specialist Relationship Specialty Start Date End Date Joyce Tapia MD 230 [place] [address] PCP - General Family Medicine 06/19/12 documented as of this encounter
--- OUTSIDE RECORDS SUMMARY | 2024-08-20 19:09 | XMS_ITS | Encounter Summary ---
Author Organization [employer] Address [address] [facility] 7t [place] [address] Care Team Providers Care Shells Inspector Name Role Phone Joyce Tapia MD Primary Care Provider [phone] Reason for Visit * Reason Onset Date Comments Med Refill 05/28/2024 Encounter Details Date Type Department Care Team ([facility] st Contact Info) Description 05/28/2024 Refill [facility] MED & PEDS 505 [place], [place] [phone] Joyce Tapia MD 505 [place] [address] Status post surgical removal of nail matrix [...] Office Visit [facility] MED & PEDS 505 [place] [address] Joyce Tapia MD 505 [place] [address] 09/17/2024 9:30 AM EDT Medication Management [facility] MED & PEDS 505 [place] [address] Cristal Muhammad, BobD 230 [place] [address] 10/18/2024 10:00 AM EDT Clinical Support [facility] MED & PEDS 505 [place] [address] Katherine Casper, MAKEDA 505 [place] [address] documented as of this encounter Visit Diagnoses Diagnosis Status post surgical removal of nail matrix of toe of left foot documented in this encounter Care Teams Shells Inspector Relationship Specialty Start Date End Date Joyce Tapia MD 230 [place] [address] PCP - General Family Medicine 06/19/12 documented as of this encounter
--- OUTSIDE RECORDS SUMMARY | 2024-08-20 19:09 | XMS_ITS | Encounter Summary ---
Author Organization [facility] Address [address] [place] [address] 7t [place] [address] Care Team Providers Care Fws Faculty Assistant Name Role Phone Joyce aTpia MD Primary Care Provider [phone] Reason for Visit * Reason Comments Med Refill Encounter Details Date Type Department Care Team (Late Contact Info) Description 06/12/2023 Refill [facility] MED & PEDS 505 [place], [place] [phone] Christy Ray MD 505 [place] [address] Muscle spasm Social History Tobacco Use Types [...] [facility] 505 [place], [place] [phone] Joyce Tapia MD 505 [place] [address] 09/17/2024 9:30 AM EDT Medication Management [facility] MED & PEDS 505 [place] [address] Cristal Muhammad PharmD 230 [place] [address] 10/18/2024 10:00 AM EDT Clinical Support [facility] MED & PEDS 505 [place] [address] Katherine Casper, RN 505 [place] [address] documented as of this encounter Visit Diagnoses Diagnosis Muscle spasm Spasm of muscle documented in this encounter Care Teams Fws Faculty Assistant Relationship Specialty Start Date End Date Joyce Tapia MD 230 [place] [address] PCP - General Family Medicine 06/19/12 documented as of this encounter
--- OUTSIDE RECORDS SUMMARY | 2024-08-20 19:09 | XMS_ITS | Encounter Summary ---
Author Organization [employer] Address [address] [facility] [address] 7t [place] [address] Care Team Providers Care Senior Credit Analyst Name Role Phone Joyce Tapia MD Primary Care Provider [phone] Reason for Visit * Reason Onset Date Comments Med Refill 10/01/2022 Encounter Details Date Type Department Care Team (Late st Contact Info) Description 10/01/[address] [facility] MEDICINE 230 [place], [place] [phone] Joyce Tapia MD [address] [place], [place] [phone] Med Refill Social History Tobacco Use Types [...] [facility] MED & PEDS 505 [place] [address] Joyce Tapia MD 505 [place] [address] 09/17/2024 9:30 AM EDT Medication Management [facility] MED & PEDS 505 [place] [address] Cristal Muhammad, PharmD 230 [place] [address] 10/18/2024 10:00 AM EDT Clinical Support [facility] MED & PEDS 505 [place] [address] Katherine Casper, MAKEDA 505 [place] [address] documented as of this encounter Visit Diagnoses Not on filedocumented in this encounter Care Teams Senior Credit Analyst Relationship Specialty Start Date End Date Joyce Tapia MD [address] [place] [address] PCP - General Family Medicine 06/19/12 documented as of this encounter
--- OUTSIDE RECORDS SUMMARY | 2024-08-20 19:09 | XMS_ITS | Encounter Summary ---
Author Organization [employer] Address [address] [facility] 7t [place] [address] Care Team Providers Care Panel Monitor Name Role Phone Joyce Tapia MD Primary Care Provider [phone] Reason for Visit * Reason Onset Date Comments Med Refill 04/05/2024 Encounter Details Date Type Department Care Team ([facility] st Contact Info) Description 04/05/2024 Refill [facility] MED & PEDS 505 [place], [place] [phone] Joyce Tapia MD 505 [place] [address] Status post surgical removal of nail matrix [...] Description 09/06/2024 8:30 AM EST Office Visit [facility] MED & PEDS 505 [place] [address] Joyce Tapia MD 505 [place] [address] 09/17/2024 9:30 AM EDT Medication Management [facility] MED & PEDS 505 [place] [address] Cristal Muhammad, BobD 230 [place] [address] 10/18/2024 10:00 AM EDT Clinical Support [facility] MED & PEDS 505 [place] [address] Katherine Casper, MAKEDA 505 [place] [address] documented as of this encounter Visit Diagnoses Diagnosis Status post surgical removal of nail matrix of toe of left foot documented in this encounter Care Teams Panel Monitor Relationship Specialty Start Date End Date Joyce Tapia MD 230 [place] [address] PCP - General Family Medicine 06/19/12 documented as of this encounter
--- OUTSIDE RECORDS SUMMARY | 2024-08-20 19:09 | XMS_ITS | Encounter Summary ---
Author Organization [employer] Address [address] [facility] 7t [place] [address] Care Team Providers Care Certified Ethical Hacker Name Role Phone Joyce Tapia MD Primary Care Provider [phone] Reason for Visit * Reason Comments Med Refill Encounter Details Date Type Department Care Team (Late Contact Info) Description 10/25/2022 Refill [facility] MED & PEDS 505 [place], [place] [phone] Jenny Schmidt MD 505 [place] [address] Status post surgical removal of nail matrix [...] Description 09/06/2024 8:30 AM EST Office Visit [facility] CHC MED & PEDS 505 [place] [address] Joyce Tapia MD 505 [place] [address] 09/17/2024 9:30 AM EDT Medication Management [facility] MED & PEDS 505 [place] [address] Cristal Muhammad PharmD 230 [place] [address] 10/18/2024 10:00 AM EDT Clinical Support [facility] MED & PEDS 505 [place] [address] Katherine Casper RN 505 [place] [address] documented as of this encounter Visit Diagnoses Diagnosis Status post surgical removal of nail matrix of toe of left foot documented in this encounter Care Teams Certified Ethical Hacker Relationship Specialty Start Date End Date Joyce Tapia MD 230 [place] [address] PCP - General Family Medicine 06/19/12 documented as of this encounter
--- OUTSIDE RECORDS SUMMARY | 2024-08-20 19:09 | XMS_ITS | Encounter Summary ---
Author Organization [employer] Address [address] [facility] [address] 7t [place] [address] Care Team Providers Care Editing Intern Name Role Phone Joyce Tapia MD Primary Care Provider [phone] Reason for Visit * Reason Onset Date Comments Med Refill 05/21/2024 Encounter Details Date Type Department Care Team ([facility] st Contact Info) Description 05/21/2024 Refill [facility] CHC MED & PEDS 505 [place], [place] [phone] Joyce Tapia MD 505 [place] [address] Social History Tobacco Use Types Packs/Day Years [...] [facility] MED [facility] PEDS 505 [place] [address] Joyce Tapia MD 505 [place] [address] 09/17/2024 9:30 AM EDT Medication Management [facility] MED & PEDS 505 [place] [address] Cristal Muhammad, PharmD 230 [place] [address] 10/18/2024 10:00 AM EDT Clinical Support [facility] MED & PEDS 505 [place] [address] Katherine Casper, RN 505 [place] [address] documented as of this encounter Visit Diagnoses Not on filedocumented in this encounter Care Teams Editing Intern Relationship Specialty Start Date End Date Joyce Tapia MD 230 [place] [address] PCP - General Family Medicine 06/19/12 documented as of this encounter
--- OUTSIDE RECORDS SUMMARY | 2024-08-20 19:09 | XMS_ITS | Encounter Summary ---
Author Organization [employer] Address [address] [facility] [address] 7t [place] [address] Care Team Providers Care Assistant Director Of Financial Aid Name Role Phone Joyce Tapia MD Primary Care Provider [phone] Reason for Visit * Reason Onset Date Comments Med Refill 11/30/2022 Encounter Details Date Type Department Care Team (Late st Contact Info) Description 11/30/2022 Telephone [facility]ICINE 230 [place] [address] Joyce Tapia MD [address] [place], [place] [phone] Med Refill Social History Tobacco Use Types [...] t he electric, gas, oil or water [employer] threatened to shut off services in your [...] , pt would like script sent to [facility] pharmacy. documented in this encounter Plan of Treatment Upcoming Encounters Date Type Department Care Team (Late st Contact Info) Description 09/06/2024 8:30 AM EST Office Visit [facility] MED & PEDS 505 [place] [address] Joyce Tapia MD 505 [place] [address] 09/17/2024 9:30 AM EDT Medication Management [facility] MED & PEDS 505 [place] [address] Cristal Muhammad, PharmD 230 [place] [address] 10/18/2024 10:00 AM EDT Clinical Support [facility] MED & PEDS 505 [place] [address] Katherine Casper, MAKEDA 505 [place] [address] documented as of this encounter Visit Diagnoses Not on filedocumented in this encounter Care Teams Assistant Director Of Financial Aid Relationship Specialty Start Date End Date Joyce Tapia MD [address] [place] [address] PCP - General Family Medicine 06/19/12 documented as of this encounter
--- OUTSIDE RECORDS SUMMARY | 2024-08-20 19:09 | XMS_ITS | Encounter Summary ---
Author Organization [employer] Address [address] [facility] [address] 7t [place] [address] Care Team Providers Care Computer Repair Instructor Name Role Phone Joyce Tapia MD Primary Care Provider [phone] Reason for Visit * Reason Onset Date Comments Med Refill 02/28/2024 Encounter Details Date Type Department Care Team (Late st Contact Info) Description 02/28/2024 Telephone [facility] MEDICINE 230 [place] [address] Joyce Tapia MD [address] [place], [place] [phone] Med Refill Social History Tobacco Use Types [...] immediate release tablet To be sent to: [facility] [place], [place] - [address] [place] [address] documented in this encounter Plan of Treatment Upcoming Encounters Date Type Department Care Team (Late st Contact Info) Description 09/06/2024 8:30 AM EST Office Visit [facility] MED & PEDS 505 [place] [address] Joyce Tapia MD 505 [place] [address] 09/17/2024 9:30 AM EDT Medication Management [facility] MED & PEDS 505 [place] [address] Cristal Muhammad, PharmD 230 [place] [address] 10/18/2024 10:00 AM EDT Clinical Support [facility] MED & PEDS 505 [place], [place] [phone] Katherine Casper, MAKEDA 505 [place], [place] documented as of this encounter Visit Diagnoses Not on filedocumented in this encounter Care Teams Computer Repair Instructor Relationship Specialty Start Date End Date Joyce Tapia MD 230 [place] [address] PCP - General Family Medicine 06/19/12 documented as of this encounter
--- OUTSIDE RECORDS SUMMARY | 2024-08-20 19:09 | XMS_ITS | Encounter Summary ---
Author Organization [employer] Address 75 [facility] 7t [place] [address] Care Team Providers Care Chemical Test Engineer Name Role Phone Joyce Tapia MD Primary Care Provider [phone] Encounter Details Date Type Department Care Team (Late Contact Info) Description 10/26/2022 Orders Only [facility] MED & PEDS 505 [place], [place] [phone] Emerson Keith MD 505 [place], [place] [phone] Social History Tobacco Use Types Packs/Day Years [...] Description 09/06/2024 8:30 AM EST Office Visit [facility] MED & PEDS 505 [place], [place] [phone] Joyce Tapia MD 505 [place] [address] 09/17/2024 9:30 AM EDT Medication Management [facility] MED & PEDS 505 [place] [address] Cristal Muhammad PharmD 230 [place] [address] 10/18/2024 10:00 AM EDT Clinical Support [facility] MED & PEDS 505 [place] [address] Katherine Casper, MAKEDA 505 [place] [address] documented as of this encounter Visit Diagnoses Not on filedocumented in this encounter Care Teams Chemical Test Engineer Relationship Specialty Start Date End Date Joyce Tapia MD 230 [place] [address] PCP - General Family Medicine 06/19/12 documented as of this encounter
--- OUTSIDE RECORDS SUMMARY | 2024-08-20 19:09 | XMS_ITS | Encounter Summary ---
Author Organization [employer] Address [address] [facility] [address] 7t [place] [address] Care Team Providers Care Lead Carpenter Name Role Phone Joyce Tapia MD Primary Care Provider [phone] Reason for Visit * Reason Onset Date Comments Med Refill 01/20/2023 Encounter Details Date Type Department Care Team (Late st Contact Info) Description 01/20/2023 Telephone [facility] MEDICINE 230 [place] [address] Joyce Tapia MD [address] [place], [place] [phone] Med Refill Social History Tobacco Use Types [...] 8:30 AM EST Office Visit [facility] MED & PEDS 505 [place] [address] Joyce Tapia MD 505 [place], [place] 09/17/2024 9:30 AM EDT Medication Management [facility] MED & PEDS 505 [place] [address] Cristal Muhammad PharmD 230 [place] [address] 10/18/2024 10:00 AM EDT Clinical Support [facility] MED & PEDS 505 [place], [place] [phone] Katherine Casper, MAKEDA 505 [place], [place] documented as of this encounter Visit Diagnoses Not on filedocumented in this encounter Care Teams Lead Carpenter Relationship Specialty Start Date End Date Joyce Tapia MD 230 [place] [address] PCP - General Family Medicine 06/19/12 documented as of this encounter
--- OUTSIDE RECORDS SUMMARY | 2024-08-20 19:09 | XMS_ITS | Encounter Summary ---
Author Organization [employer] [facility] Address 75 [facility] 7t [place] [address] Care Team Providers Care Propulsion Engineer Name Role Phone Joyce Tapia MD Primary Care Provider [phone] Reason for Visit * Reason Comments Med Refill Encounter Details Date Type Department Care Team (Late st Contact Info) Description 07/29/2023 Refill [facility] MEDICINE 230 [place], [place] [phone] Joyce Tapia MD 505 [place] [address] Status post surgical removal of nail matrix [...] Description 09/06/2024 8:30 AM EST Office Visit [facility] CH[facility] MED & PEDS 505 [place], [place] [phone] Joyce Tapia MD 505 [place] [address] 09/17/2024 9:30 AM EDT Medication Management [facility] MED & PEDS 505 [place] [address] Cristal Muhammad PharmD 230 [place] [address] 10/18/2024 10:00 AM EDT Clinical Support [facility] MED & PEDS 505 [place] [address] Katherine Casper, RN 505 [place] [address] documented as of this encounter Visit Diagnoses Diagnosis Status post surgical removal of nail matrix of toe of left foot documented in this encounter Care Teams Propulsion Engineer Relationship Specialty Start Date End Date Joyce Tapia MD 230 [place] [address] PCP - General Family Medicine 06/19/12 documented as of this encounter
--- OUTSIDE RECORDS SUMMARY | 2024-08-20 19:09 | XMS_ITS | Encounter Summary ---
Author Organization [employer] [facility] Address [address] [facility] 7t [place] [address] Care Team Providers Care Digging Machine Operator Name Role Phone Joyce Tapia MD Primary Care Provider [phone] Reason for Visit * Reason Comments Med Refill Encounter Details Date Type Department Care Team (Late st Contact Info) Description 06/07/2023 Refill [facility] MED & PEDS [address] [place], [place] [phone] Ev Lewis, ANP 230 [place] [address] Status post surgical removal of nail matrix [...] [facility] [address] [place], [place] [phone] Joyce Tapia MD 505 [place] [address] 09/17/2024 9:30 AM EDT Medication Management [facility] MED & PEDS [address] [place] [address] Cristal Muhammad PharmD 230 [place] [address] 10/18/2024 10:00 AM EDT Clinical Support [facility] MED & PEDS [address] [place] [address] Katherine Casper, RN 505 [place] [address] documented as of this encounter Visit Diagnoses Diagnosis Status post surgical removal of nail matrix of toe of left foot documented in this encounter Care Teams Digging Machine Operator Relationship Specialty Start Date End Date Joyce Tapia MD 230 [place] [address] PCP - General Family Medicine 06/19/12 documented as of this encounter
--- OUTSIDE RECORDS SUMMARY | 2024-08-20 19:09 | XMS_ITS | Encounter Summary ---
Author Organization [employer] [facility] Address [address] [facility] 7t [place] [address] Care Team Providers Care Grove Superintendent Name Role Phone Joyce Tapia MD Primary Care Provider [phone] Reason for Visit * Reason Comments Med Refill Encounter Details Date Type Department Care Team (Late st Contact Info) Description 06/06/2023 Refill [facility] MED & PEDS 505 [place], [place] [phone] Ev Lewis, ANP 230 [place] [address] Status post surgical removal of nail matrix [...] [facility] 505 [place], [place] [phone] Joyce Tapia MD 505 [place] [address] 09/17/2024 9:30 AM EDT Medication Management [facility] MED & PEDS 505 [place] [address] Cristal Muhammad PharmD 230 [place] [address] 10/18/2024 10:00 AM EDT Clinical Support [facility] MED & PEDS 505 [place] [address] Katherine Casper, RN 505 [place] [address] documented as of this encounter Visit Diagnoses Diagnosis Status post surgical removal of nail matrix of toe of left foot documented in this encounter Care Teams Grove Superintendent Relationship Specialty Start Date End Date Joyce Tapia MD 230 [place] [address] PCP - General Family Medicine 06/19/12 documented as of this encounter
--- OUTSIDE RECORDS SUMMARY | 2024-08-20 19:09 | XMS_ITS | Encounter Summary ---
Author Organization [employer] Address 75 [facility] 7t [place] [address] Care Team Providers Care Heart Surgeon Name Role Phone Joyce Tapia MD Primary Care Provider [phone] Reason for Visit * Reason Onset Date Comments Med Refill 06/28/2023 Encounter Details Date Type Department Care Team ([facility] st Contact Info) Description 06/28/2023 Telephone [facility] MEDICINE 230 [place], [place] [phone] Joyce Tapia MD [address] [place] [address] Med Refill Social History Tobacco Use Types [...] tablet To be sent to: [facility] [place] - [address] [facility] documented in this encounter Plan of Treatment Upcoming Encounters Date Type Department Care Team (Late st Contact Info) Description 09/06/2024 8:30 AM EST Office Visit [facility] MED & PEDS 505 [place] [address] Joyce Tapia MD 505 [place] [address] 09/17/2024 9:30 AM EDT Medication Management [facility] MED & PEDS 505 [place] [address] Cristal Muhammad, BobD 230 [place] [address] 10/18/2024 10:00 AM EDT Clinical Support [facility] MED & PEDS 505 [place] [address] Katherine Casper, MAKEDA 505 [place] [address] documented as of this encounter Visit Diagnoses Not on filedocumented in this encounter Care Teams Heart Surgeon Relationship Specialty Start Date End Date Joyce Tapia MD 230 [place] [address] PCP - General Family Medicine 06/19/12 documented as of this encounter
--- OUTSIDE RECORDS SUMMARY | 2024-08-20 19:09 | XMS_ITS | Encounter Summary ---
Author Organization [employer] Address [address] [facility] [address] 7t [place] [address] Care Team Providers Care Instructor Kindergarten Name Role Phone Joyce Tapia MD Primary Care Provider [phone] Reason for Visit * Reason Onset Date Comments Med Refill 01/03/2023 Encounter Details Date Type Department Care Team (Late st Contact Info) Description 01/03/2023 Telephone [facility] MEDICINE 230 [place] [address] Joyce Tapia MD [address] [place], [place] [phone] Med Refill Social History Tobacco Use Types [...] [facility] MED & PEDS 505 [place] [address] Joyce Tapia MD 505 [place] [address] 09/17/2024 9:30 AM EDT Medication Management [facility] MED & PEDS 505 [place] [address] Cristal Muhammad, PharmD 230 [place] [address] 10/18/2024 10:00 AM EDT Clinical Support [facility] MED & PEDS 505 [place] [address] Katherine Casper, MAKEDA 505 [place] [address] documented as of this encounter Visit Diagnoses Not on filedocumented in this encounter Care Teams Instructor Kindergarten Relationship Specialty Start Date End Date Joyce Tapia MD [address] [place] [address] PCP - General Family Medicine 06/19/12 documented as of this encounter
--- OUTSIDE RECORDS SUMMARY | 2024-08-20 19:09 | XMS_ITS | Encounter Summary ---
Author Organization [employer] Address [address] [facility] [address] [facility] [address] 7t [place] [address] Care Team Providers Care Superintendent Communications Name Role Phone Joyce Tapia MD Primary Care Provider [phone] Reason for Visit * Reason Onset Date Comments Med Refill 06/25/2024 Encounter Details Date Type Department Care Team (Late st Contact Info) Description 06/25/2024 Refill [facility] MEDICINE 230 [place] [address] Joyce Tapia MD [address] [place] [address] Status post surgical removal of nail matrix [...] [facility] MED & PEDS 505 [place] [address] Joyce Tapia MD 505 [place] [address] 09/17/2024 9:30 AM EDT Medication Management [facility] MED & PEDS 505 [place] [address] Cristal Muhammad PharmD 230 [place] [address] 10/18/2024 10:00 AM EDT Clinical Support [facility] MED & PEDS [address] [place] [address] Katherine Casper, RN 505 [place] [address] documented as of this encounter Visit Diagnoses Diagnosis Status post surgical removal of nail matrix of toe of left foot documented in this encounter Care Teams Superintendent Communications Relationship Specialty Start Date End Date Joyce Tapia MD 230 [place] [address] PCP - General Family Medicine 06/19/12 documented as of this encounter
--- OUTSIDE RECORDS SUMMARY | 2024-08-20 19:09 | XMS_ITS | Encounter Summary ---
Author Organization [employer] [facility] Address [address] [facility] 7t [place] [address] Care Team Providers Care Support Services Tech Name Role Phone Joyce Tapia MD Primary Care Provider [phone] Encounter Details Date Type Department Care Team (Late st Contact Info) Description 09/27/2022 Orders Only [facility] MEDICINE 230 [place], [place] [phone] Comfort Estrada LPN Social History Tobacco Use [...] Description 09/06/2024 8:30 AM EST Office Visit [facility] MED & PEDS 505 [place] [address] Joyce Tapia MD 505 [place] [address] 09/17/2024 9:30 AM EDT Medication Management [facility] MED & PEDS 505 [place] [address] Cristal Muhammad PharmD 230 [place] [address] 10/18/2024 10:00 AM EDT Clinical Support [facility] MED & PEDS 505 [place] [address] Katherine Casper, RN 505 [place] [address] documented as of this encounter Visit Diagnoses Not on filedocumented in this encounter Care Teams Support Services Tech Relationship Specialty Start Date End Date Joyce Tapia MD 230 [place] [address] PCP - General Family Medicine 06/19/12 documented as of this encounter
--- OUTSIDE RECORDS SUMMARY | 2024-08-20 19:09 | XMS_ITS | Encounter Summary ---
Author Organization [employer] Address [address] 7t [place] [address] Care Team Providers Care Paper Slitter Name Role Phone Joyce Tapia MD Primary Care Provider [phone] Reason for Visit * Reason Onset Date Comments Med Refill 11/22/2022 Encounter Details Date Type Department Care Team (Late st Contact Info) Description 11/22/2022 Telephone [facility] MEDICINE 230 [place] [address] Joyce Tapia MD [address] [place], [place] [phone] Med Refill Social History Tobacco Use Types [...] t he electric, gas, oil or water [facility] threatened to shut off services in your [...] [facility] MED & PEDS 505 [place] [address] Joyce Tapia MD 505 [place] [address] 09/17/2024 9:30 AM EDT Medication Management [facility] MED & PEDS 505 [place] [address] Cristal Muhammad, PharmD 230 [place] [address] 10/18/2024 10:00 AM EDT Clinical Support [facility] MED & PEDS 505 [place] [address] Katherine Casper, MAKEDA 505 [place] [address] documented as of this encounter Visit Diagnoses Not on filedocumented in this encounter Care Teams Paper Slitter Relationship Specialty Start Date End Date Joyce Tapia MD [address] [place] [address] PCP - General Family Medicine 06/19/12 documented as of this encounter
--- OUTSIDE RECORDS SUMMARY | 2024-08-20 19:09 | XMS_ITS | Encounter Summary ---
Author Organization [employer] Address [address] [facility] 7t [place] [address] Care Team Providers Care Make Ready Worker Name Role Phone Joyce Tapia MD Primary Care Provider [phone] Reason for Visit * Reason Onset Date Comments Med Refill 08/01/2024 Encounter Details Date Type Department Care Team (Late st Contact Info) Description 08/01/2024 Refill [facility] MEDICINE 230 [place] [address] Emerson Keith MD 505 [place] [address] Status post surgical removal of nail matrix [...] [facility] MED & PEDS 505 [place] [address] Joyce Tapia MD 505 [place] [address] 09/17/2024 9:30 AM EDT Medication Management [facility] MED & PEDS 505 [place] [address] Cristal Muhammad, BobD 230 [place] [address] 10/18/2024 10:00 AM EDT Clinical Support [facility] MED & PEDS 505 [place] [address] Katherine Casper, MAKEDA 505 [place] [address] documented as of this encounter Visit Diagnoses Diagnosis Status post surgical removal of nail matrix of toe of left foot documented in this encounter Care Teams Make Ready Worker Relationship Specialty Start Date End Date Joyce Tapia MD 230 [place] [address] PCP - General Family Medicine 06/19/12 documented as of this encounter
--- OUTSIDE RECORDS SUMMARY | 2024-08-20 19:09 | XMS_ITS | Encounter Summary ---
Author Organization [employer] Address [address] [facility] 7t [place] [address] Care Team Providers Care Horse Rider Name Role Phone Joyce Tapia MD Primary Care Provider [phone] Reason for Visit * Reason Onset Date Comments Med Refill 05/30/2023 Encounter Details Date Type Department Care Team ([facility] st Contact Info) Description 05/30/2023 Telephone [facility] MEDICINE 230 [place], [place] [phone] Joyce Tapia MD [address] [place] [address] Med Refill Social History Tobacco Use Types [...] oxyCODONE (Roxicodone) 5 MG immediate release tablet [facility] [place] - [address] documented in this encounter Plan of Treatment Upcoming Encounters Date Type Department Care Team (Late st Contact Info) Description 09/06/2024 8:30 AM EST Office Visit [facility] MED & PEDS 505 [place] [address] Joyce Tapia MD 505 [place] [address] 09/17/2024 9:30 AM EDT Medication Management [facility] MED & PEDS 505 [place] [address] Cristal Muhammad PharmD 230 [place] [address] 10/18/2024 10:00 AM EDT Clinical Support [facility] MED & PEDS 505 [place] [address] Katherine Casper, MAKEDA 505 [place] [address] documented as of this encounter Visit Diagnoses Not on filedocumented in this encounter Care Teams Horse Rider Relationship Specialty Start Date End Date Joyce Tapia MD 230 [place] [address] PCP - General Family Medicine 06/19/12 documented as of this encounter
--- OUTSIDE RECORDS SUMMARY | 2024-08-20 19:09 | XMS_ITS | Encounter Summary ---
Author Organization [employer] Address [address] [facility] [address] 7t [place] [address] Care Team Providers Care Transit Planning Director Name Role Phone Joyce Tapia MD Primary Care Provider [phone] Reason for Visit * Reason Onset Date Comments Med Refill 07/26/2024 Encounter Details Date Type Department Care Team (Late st Contact Info) Description 07/26/2024 Refill [facility] MEDICINE 230 [place] [address] Joyce Tapia MD [address] [place] [address] Status post surgical removal of nail matrix [...] immediate release tablet To be sent to: [facility]/pharmacy #[id number] documented in this encounter Plan of Treatment Upcoming Encounters Date Type Department Care Team (Late st Contact Info) Description 09/06/2024 8:30 AM EST Office Visit [facility] MED & PEDS 505 [place] [address] Joyce Tapia MD 505 [place] [address] 09/17/2024 9:30 AM EDT Medication Management [facility] MED & PEDS 505 [place] [address] Cristal Muhammad, PharmD 230 [place] [address] 10/18/2024 10:00 AM EDT Clinical Support [facility] MED & PEDS 505 [place], [place] [phone] Katherine Casper, MAKEDA 505 [place] [address] documented as of this encounter Visit Diagnoses Diagnosis Status post surgical removal of nail matrix of toe of left foot documented in this encounter Care Teams Transit Planning Director Relationship Specialty Start Date End Date Joyce Tapia MD [address] [place] [address] PCP - General Family Medicine 06/19/12 documented as of this encounter
--- OUTSIDE RECORDS SUMMARY | 2024-08-20 19:09 | XMS_ITS | Encounter Summary ---
Author Organization [employer] Address [address] [facility] 7t [place] [address] Care Team Providers Care Helpdesk Manager Name Role Phone Joyce Tapia MD Primary Care Provider [phone] Reason for Visit * Reason Onset Date Comments Med Refill 07/27/2024 Encounter Details Date Type Department Care Team (Late st Contact Info) Description 07/27/2024 Refill [facility] MEDICINE 230 [place] [address] Emerson Keith MD 505 [place] [address] Status post surgical removal of nail matrix [...] [facility] MED & PEDS 505 [place] [address] Jyoce Tapia MD 505 [place] [address] 09/17/2024 9:30 AM EDT Medication Management [facility] MED & PEDS 505 [place] [address] Cristal Muhammad, BobD 230 [place] [address] 10/18/2024 10:00 AM EDT Clinical Support [facility] MED & PEDS 505 [place] [address] Katherine Casper, MAKEDA 505 [place] [address] documented as of this encounter Visit Diagnoses Diagnosis Status post surgical removal of nail matrix of toe of left foot documented in this encounter Care Teams Helpdesk Manager Relationship Specialty Start Date End Date Joyce Tapia MD 230 [place] [address] PCP - General Family Medicine 06/19/12 documented as of this encounter
--- OUTSIDE RECORDS SUMMARY | 2024-08-20 19:09 | XMS_ITS | Encounter Summary ---
Author Organization [employer] Address [address] [facility] [facility] [address] 7t [place] [address] Care Team Providers Care Senior Informatica Developer Name Role Phone Joyce Tapia MD Primary Care Provider [phone] Reason for Visit * Reason Onset Date Comments Med Refill 08/01/2024 Encounter Details Date Type Department Care Team (Late st Contact Info) Description 08/01/2024 Refill [facility] MEDICINE 230 [place] [address] Joyce Tapia MD [address] [place] [address] Status post surgical removal of nail matrix [...] immediate release tablet To be sent to: [facility]/pharmacy #[id number] [place] - [address] [place] documented in this encounter Plan of Treatment Upcoming Encounters Date Type Department Care Team (Late st Contact Info) Description 09/06/2024 8:30 AM EST Office Visit [facility] MED & PEDS 505 [place] [address] Joyce Tapia MD 505 [place] [address] 09/17/2024 9:30 AM EDT Medication Management [facility] MED & PEDS 505 [place] [address] Cristal Muhammad, PharmD 230 [place] [address] 10/18/2024 10:00 AM EDT Clinical Support [facility] MED & PEDS [address] [place] [address] Katherine Casper, RN 505 [place] [address] documented as of this encounter Visit Diagnoses Diagnosis Status post surgical removal of nail matrix of toe of left foot documented in this encounter Care Teams Senior Informatica Developer Relationship Specialty Start Date End Date Joyce Tapia MD [address] [place] [address] PCP - General Family Medicine 06/19/12 documented as of this encounter
--- OUTSIDE RECORDS SUMMARY | 2024-08-20 19:09 | XMS_ITS | Encounter Summary ---
Author Organization [employer] Address [address] 7t [place] [address] Care Team Providers Care Neuropsychology Director Name Role Phone Joyce Tapia MD Primary Care Provider Reason for Visit * Reason Onset Date Comments Med Refill 06/05/2024 Encounter Details Date Type Department Care Team (Late st Contact Info) Description 06/05/2024 Refill [facility] MEDICINE 230 [place] [address] Joyce Tapia MD [address] [place] [address] Status post surgical removal of nail matrix of toe of left foot Social History Tobacco Use Types Packs/Day Years Used Date Smoking Tobacco: Every Day Cigarettes Passive Smoke Exposure: Never Smokeless Tobacco: Never Alcohol Use Standard Drinks/Week Comments Never 0 (1 standard drink = 0.6 oz pur e alcohol) Housing Stability Answer Date Recorded What is your housing situation today? I have yadira hna 01/04/[address] you li [...] [facility] 505 [place] [address] Joyce Tapia MD 505 [place] [address] 09/17/2024 9:30 AM EDT Medication Management [facility] MED & PEDS 505 [place] [address] Cristal Muhammad PharmD 230 [place] [address] 10/18/2024 10:00 AM EDT Clinical Support [facility] MED & PEDS 505 [place] [address] Katherine Casper, RN 505 [place] [address] documented as of this encounter Visit Diagnoses Diagnosis Status post surgical removal of nail matrix of toe of left foot documented in this encounter Care Teams Neuropsychology Director Relationship Specialty Start Date End Date Joyce Tapia MD 230 [place] [address] PCP - General Family Medicine 06/19/12 documented as of this encounter
--- OUTSIDE RECORDS SUMMARY | 2024-08-20 19:09 | XMS_ITS | Encounter Summary ---
Author Organization [employer] Address [address] [place] [address] 7t [place] [address] Care Team Providers Care Production Quality Manager Name Role Phone Joyce Tapia MD Primary Care Provider [phone] Reason for Visit * Reason Comments Med Refill Encounter Details Date Type Department Care Team (Late st Contact Info) Description 10/11/2023 Refill [facility] MEDICINE 230 [place], [place] [phone] Ayden Orellana MD 505 [place] [address] Status post surgical removal of nail matrix [...] Description 09/06/2024 8:30 AM EST Office Visit [facility]EDS 505 [place], [place] [phone] Joyce Tapia MD 505 [place], [place] [phone] 09/17/2024 9:30 AM EDT Medication Management [facility] MED & PEDS 505 [place] [address] Cristal Muhammad PharmD 230 [place] [address] 10/18/2024 10:00 AM EDT Clinical Support [facility] MED & PEDS 505 [place] [address] Katherine Casper, RN 505 [place] [address] documented as of this encounter Visit Diagnoses Diagnosis Status post surgical removal of nail matrix of toe of left foot documented in this encounter Care Teams Production Quality Manager Relationship Specialty Start Date End Date Joyce Tapia MD 230 [place] [address] PCP - General Family Medicine 06/19/12 documented as of this encounter
--- OUTSIDE RECORDS SUMMARY | 2024-08-20 19:09 | XMS_ITS | Encounter Summary ---
Author Organization [employer] Address [address] [facility] 7t [place] [address] Care Team Providers Care Spa Manager Name Role Phone Joyce Tapia MD Primary Care Provider [phone] Reason for Visit * Reason Onset Date Comments Med Refill 07/12/2024 Encounter Details Date Type Department Care Team (Late st Contact Info) Description 07/12/2024 Refill [facility]S 505 [place], [place] [phone] Joyce Tapia MD 505 [place] [address] Status post surgical removal of nail matrix [...] [facility] 505 [place] [address] Joyce Tapia MD 505 [place] [address] 09/17/2024 9:30 AM EDT Medication Management [facility] MED & PEDS 505 [place] [address] Cristal Muhammad, BobD 230 [place] [address] 10/18/2024 10:00 AM EDT Clinical Support [facility] MED & PEDS 505 [place] [address] Katherine Casper, MAKEDA 505 [place] [address] documented as of this encounter Visit Diagnoses Diagnosis Status post surgical removal of nail matrix of toe of left foot documented in this encounter Care Teams Spa Manager Relationship Specialty Start Date End Date Joyce Tapia MD 230 [place] [address] PCP - General Family Medicine 06/19/12 documented as of this encounter
--- OUTSIDE RECORDS SUMMARY | 2024-08-20 19:09 | XMS_ITS | Encounter Summary ---
Author Organization [employer] [facility] Address [address] [facility] 7t [place] [address] Care Team Providers Care Manager Fraud Name Role Phone Joyce Tapia MD Primary Care Provider [phone] Encounter Details Date Type Department Care Team (Late st Contact Info) Description 05/24/2023 Abstract [facility] MEDICINE 230 [place], [place] [phone] Zohra Benavidez Social History Tobacco Use Types [...] 09/06/2024 8:30 AM EST Office Visit [facility] MED & PEDS 505 [place] [address] Joyce Tapia MD 505 [place] [address] 09/17/2024 9:30 AM EDT Medication Management [facility] MED & PEDS 505 [place] [address] Cristal Muhammad, PharmD 230 [place] [address] 10/18/2024 10:00 AM EDT Clinical Support [facility]EDS 505 [place] [address] Katherine Casper, RN [address] [place], [place] documented as of this encounter Procedures Procedure Name Priority Date/Time Associated Diagnosis Comments HM COLONOSCOPY Routine 02/20/2015 documented in this encounter Results * Hm Colonoscopy (02/20/2015) Colonoscopy Normal Normal Narrative Zohra Benavidez - 02/20/2015 Repeat in 10 year Historical Provider HEALTH MAINTENANCE Final Result documented in this encounter Visit Diagnoses Not on filedocumented in this encounter Care Teams Manager Fraud Relationship Specialty Start Date End Date Joyce Tapia MD [address] [place] [address] PCP - General Family Medicine 06/19/12 documented as of this encounter
--- OUTSIDE RECORDS SUMMARY | 2024-08-20 19:09 | XMS_ITS | Encounter Summary ---
Author Organization [employer] Address [address] [place] [address] Care Team Providers Care Senior Specialist Name Role Phone Joyce Tapia MD Primary Care Provider [phone] Reason for Visit * Reason Onset Date Comments Med Refill 07/27/2024 Encounter Details Date Type Department Care Team ([facility] st Contact Info) Description 07/27/2024 Telephone [facility] MED & PEDS [address] [place], [place] [phone] Joyce Tapia MD [address] [place] [address] Med Refill Social History Tobacco Use Types [...] EST TC to pt regarding message below. MODELING AGENCY MANAGER [place] converted to a televisit today d/t inclement weather. * Telephone Encounter - Joyce Tapia MD - 08/08/2024 7:51 PM EST 3 * Telephone Encounter - Katherine Casper RN - 08/07/2024 3:51 PM EST .What MODELING AGENCY MANAGER Tier would you like this patient to be? Tier 1 = HIGH RISK, Monthly MODELING AGENCY MANAGER visits Tier 2 = MODerate RISK, Q3 Month visits Tier 3 = LOW RISK = Q4-6 month visits * Telephone Encounter - Maxine Tillman - 07/27/2024 9:13 AM EST TC from pt requesting medication refill. Medications needing refill : oxyCODONE (Roxicodone) 5 MG immediate release tablet To be sent to: [facility]/pharmacy #[id number] - [place] - [address] documented in this encounter Plan of Treatment Upcoming Encounters Date Type Department Care Team (Late st Contact Info) Description 09/06/2024 8:30 AM EST Office Visit [facility] MED & PEDS [address] [place] [address] Joyce Tapia MD [address] [place] [address] 09/17/2024 9:30 AM EDT Medication Management [facility] MED & PEDS [address] [place] [address] Cristal Muhammad, BobD [address] [place] [address] 10/18/2024 10:00 AM EDT Clinical Support [facility] MED & PEDS [address] [place] [address] Katherine Casper, RN [address] [place] [address] documented as of this encounter Visit Diagnoses Not on filedocumented in this encounter Care Teams Senior Specialist Relationship Specialty Start Date End Date Joyce Tapia MD [address] [place] [address] PCP - General Family Medicine 06/19/12 documented as of this encounter
--- OUTSIDE RECORDS SUMMARY | 2024-08-20 19:09 | XMS_ITS | Encounter Summary ---
Author Organization [employer] [facility] Address [address] 7[address] [place] [address] Care Team Providers Care Agriculture Consultant Name Role Phone Joyce Tapia MD Primary Care Provider [phone] Reason for Visit * Reason Comments Med Refill Encounter Details Date Type Department Care Team (Late st Contact Info) Description 10/03/2023 Refill [facility] CH[facility] MED & PEDS [address] [place] [address] Joyce Tapia MD [address] [place] [address] Arthropathy Social History Tobacco Use Types Packs/Day [...] Description 09/06/2024 8:30 AM EST Office Visit [facility] CHC MED & PEDS [address] [place] [address] Joyce Tapia MD [address] [place] [address] 09/17/2024 9:30 AM EDT Medication Management [facility] MED & PEDS [address] [place] [address] Cristal Muhammad PharmD [address] [place] [address] 10/18/2024 10:00 AM EDT Clinical Support [facility] MED & PEDS [address] [place] [address] Katherine Casper, RN [address] [place] [address] documented as of this encounter Visit Diagnoses Diagnosis Arthropathy Unspecified arthropathy, site unspecified documented in this encounter Care Teams Agriculture Consultant Relationship Specialty Start Date End Date Joyce Tapia MD [address] [place] [address] PCP - General Family Medicine 06/19/12 documented as of this encounter
--- OUTSIDE RECORDS SUMMARY | 2024-08-20 19:09 | XMS_ITS | Encounter Summary ---
Author Organization [employer] Address [address] [place] [address] Care Team Providers Care Precision Thread Grinder Operator Name Role Phone Joyce Tapia MD Primary Care Provider [phone] Reason for Visit * Reason Onset Date Comments Med Refill 12/21/2022 Encounter Details Date Type Department Care Team ([facility] st Contact Info) Description 12/21/2022 Telephone [facility] MEDICINE [address] [place], [place] [phone] Joyce Tapia MD [address] [place], [place] [phone] Med Refill Social History Tobacco Use Types [...] t he electric, gas, oil or water wufoo threatened to shut off services in your [...] medication oxycodone 5 mg. Please send to [facility] - [place], [place] - [address] [facility] Tapia * Telephone Encounter - Gómez Forde - 12/21/2022 8:06 AM EDT Tc from pt requesting a med refill for oxycodone 5 mg documented in this encounter Plan of Treatment Upcoming Encounters Date Type Department Care Team ([facility] st Contact Info) Description 09/06/2024 8:30 AM EST Office Visit [facility] MED & PEDS [address] [place] [address] Joyce Tapia MD [address] [place] [address] 09/17/2024 9:30 AM EDT Medication Management [facility] MED & PEDS [address] [place] [address] Cristal Muhammad PharmD [address] [place] [address] 10/18/2024 10:00 AM EDT Clinical Support [facility] MED & PEDS [address] [place] [address] Katherine Casper, RN [address] [place] [address] documented as of this encounter Visit Diagnoses Not on filedocumented in this encounter Care Teams Precision Thread Grinder Operator Relationship Specialty Start Date End Date Joyce Tapia MD [address] [place] [address] PCP - General Family Medicine 06/19/12 documented as of this encounter
[2024-08-20 19:45] LABS: MANUAL DIFF FLAG NO
[2024-08-20 20:09] LABS: Alanine Aminotransferase 24 U/L (0-31); Albumin Level 3.7 g/dL (3.5-5.0); Alkaline Phosphatase 78 U/L (39-117); Anion Gap 11 (12-20); Aspartate Amino Transferase 21 U/L (5-31); Bilirubin Direct 0.2 mg/dL (0.0-0.5); Bilirubin Total 0.4 mg/dL (0.0-1.0); Blood Urea Nitrogen 12 mg/dL (9-16); Calcium 8.6 mg/dL (8.4-10.2); Carbon Dioxide 27 mmol/L (22-29); Chloride 104 mmol/L (96-108); Creatinine Clr Calc Pharmacy 80.2; Estimated Glomerular Filt Rate > 60; Glucose Random 119 mg/dL (60-115); Magnesium 1.9 mg/dL (1.6-2.6); Potassium 3.7 mmol/L (3.3-5.1); Sodium 138 mmol/L (135-145); Total Protein 6.5 g/dL (6.5-8.0)
[2024-08-20 20:23] LABS: Troponin-I High Sensitivity < 2.7 ng/L (<3.5-17.0)
[2024-08-20 20:25] LABS: Basophils Percent Auto 0.3 % (0-2); Eosinophils Absolute Auto 0.2 X10*3/uL (0.0-0.4); Eosinophils Percent Auto 2.8 % (0-4); Hematocrit 36.7 % (37.0-47.0); Hemoglobin 12.4 g/dl (12.0-16.0); Imm Gran Abs Auto 0.01 X10*3/uL (0.00-0.03); Imm Gran Pct Auto 0.1 % (0.0-0.4); Lymphocytes Absolute Auto 0.6 X10*3/uL (1.2-4.9); Lymphocytes Percent Auto 9.1 % (20-40); Mean Corpuscular HGB Conc 33.8 g/dl (31.0-35.0); Mean Corpuscular Hemoglobin 29.7 pg (27.0-33.0); Mean Corpuscular Volume 87.8 fL (80.0-98.0); Mean Platelet Volume 10.2 fL (9.4-12.3); Monocytes Absolute Auto 0.5 X10*3/uL (0.1-1.2); Monocytes Percent Auto 7.5 % (2-11); Neutrophils Absolute Auto 5.5 x10*3/uL (2.0-8.3); Neutrophils Percent Auto 80.2 % (45-73); Platelet Count 156 X10*3/uL (160-400); Red Blood Count 4.18 X10*6/uL (4.20-5.50); Red Cell Distribution Width 12.5 % (11.0-16.0); White Blood Count 6.8 X10*3/uL (4.8-10.8)
--- NOTE | 2024-08-20 20:28 | ED_ITS ---
HPI - Chest Pain General Chief Complaint: Chest Pain Stated Complaint: pressure in chest and L jaw x30 mins Time Seen by Provider: 08/20/24 19:38 Source: patient and EMS Mode of arrival: EMS Limitations: no limitations History of Present Illness ED Provider: DR. Telles HPI narrative: A 63-year-old female came in for evaluation after having chest pain while was at work. Patient deal with pushing heavy cart at work, started to have mid chest pain at work about 2 hours before coming to the ED pain lasted for about 5 minutes pain was localized to the mid chest radiates to the chin, no shortness of breath, patient had history of blood clots used to be on blood thinner. Patient was given aspirin and nitro by EMS. Patient now feels slight burning sensation in her chest otherwise no other complaint. Related Data Home Medications ?Medication ?Instructions ?Recorded ?Confirmed hydrochlorothiazide 12.5 mg capsule 12.5 mg PO DAILY 05/09/20 07/25/24 hydroxyzine HCl 25 mg tablet 50 mg PO BEDTIME 06/04/20 07/25/24 sertraline 100 mg tablet 1 tab PO BEDTIME 10/20/21 07/25/24 tizanidine 4 mg tablet 1 tab PO BEDTIME PRN Pain 10/20/21 07/25/24 cyanocobalamin (vitamin B-12) 1,000 mcg PO QAM 06/03/22 07/25/24 1,000 mcg tablet metformin 500 mg tablet,extended 500 mg PO BID 06/03/22 07/25/24 release 24 hr albuterol sulfate 90 mcg/actuation 2 puff inhalation Q4-6H PRN 08/25/23 07/25/24 aerosol inhaler Shortness Of Breath Or Wheezing oxycodone 5 mg tablet 5 mg PO Q6H PRN severe pain 09/27/23 07/25/24 pramipexole 0.5 mg tablet 0.5 mg PO TID 09/27/23 07/25/24 zolpidem 5 mg tablet 5 mg PO BEDTIME PRN insomnia 09/27/23 07/25/24 ferrous sulfate 325 mg (65 mg 325 mg PO QAM 10/27/23 07/25/24 iron) tablet ondansetron HCl 4 mg tablet 4 mg PO Q12H PRN nausea/vomiting 02/03/24 07/25/24 varenicline tartrate 1 mg tablet 1 mg PO BID 04/24/24 07/25/24 Previous Rx's ?Medication ?Instructions ?Recorded cholecalciferol (vitamin D3) 50 50 mcg PO DAILY #30 caps 12/15/20 mcg (2,000 unit) capsule fluticasone propionate 50 2 spray intranasal DAILY #16 grams 06/21/21 mcg/actuation nasal spray,suspension (Flonase Allergy Relief) blood-glucose meter (FreeStyle #1 ea 08/21/21 Lite Meter kit) blood sugar diagnostic (FreeStyle #150 strips 03/30/22 Lite Strips) thiamine HCl (vitamin B1) 100 mg 100 mg PO DAILY #90 tabs 06/07/22 tablet lidocaine 5 % topical patch 1 patch topical DAILY #15 ea 11/10/22 (Lidoderm) cyclobenzaprine 10 mg tablet 10 mg PO Q8H #20 tabs 01/07/23 meclizine 25 mg tablet 25 mg PO TID PRN dizziness #20 tabs 02/11/23 albuterol sulfate 1.25 mg/3 mL 1.25 mg (3 mL) inhalation QID PRN 06/11/23 solution for nebulization shortness of breath or wheezing #90 mL diclofenac sodium 1 % topical gel 2 g topical BID PRN pain (scale 07/18/23 (Aleve (diclofenac)) score 4-6) #100 grams prednisone 20 mg tablet 40 mg (2 x 20 mg) PO DAILY 5 days 06/03/24 #10 tabs pantoprazole 40 mg tablet,delayed 40 mg PO BID #60 tabs 07/30/24 release barium sulfate 2 % (w/v) oral 450 ml PO ONCE #900 mL 07/31/24 suspension (Readi-Cat 2) Allergies Allergy/AdvReac Type Severity Reaction Status Date / Time prochlorperazine Allergy Severe Seizure Verified 08/20/24 18:57 [From Compazine] Penicillins Allergy Intermediate HIVES Verified 08/20/24 18:57 sulfamethoxazole Allergy Intermediate BLISTERS- Verified 08/20/24 18:57 [From BACTRIM] DELGADO - NERVE ENDINGS IN HAND/ERYTHEMA MULTIFORM trimethoprim [From BACTRIM] Allergy Intermediate BLISTERS- Verified 08/20/24 18:57 DELGADO - NERVE ENDINGS IN HAND/ERYTHEMA MULTIFORM latex [Latex] Allergy Mild RASH Verified 08/20/24 18:57 transparent dressing AdvReac Severe Redness of Verified 08/20/24 18:57 [Tegaderm] Skin theophylline AdvReac Intermediate TACHYCARDIA Verified 08/20/24 18:57 Review of Systems 2 Review of Systems: All other systems are reviewed and are negative Constitutional: Reports as per HPI and Reports no additional constitutional complaints Eyes: Reports as per HPI and Reports no additional eye complaints Reports system reviewed and no additional complaints, except as documented Cardiovascular: Reports as per HPI and Reports no additional cardiovascular complaints Respiratory: Reports as per HPI and Reports no additional respiratory complaints Gastrointestinal: Reports as per HPI and Reports no additional gastrointestinal complaints Genitourinary: Reports no additional female genitourinary complaints Musculoskeletal: Reports no additional musculoskeletal complaints Skin/Breast: Reports system reviewed and no additional complaints, except as docu Psychiatric: Reports no additional psychiatric complaints Endocrine: Reports no additional endocrine complaints Hematologic/Lymphatic: Reports no additional hematologic/lymphatic complaints Allergic/Immunologic: Reports no additional allergic/immunologic complaints Reports system reviewed and no additional complaints, except as documented and Reports Abnormal speech present [facility] Past Medical History Medical History Abscess Abdominal pain Infection of skin due to methicillin resistant Staphylococcus aureus (MRSA) Numbness of right hand COVID-19 Sebaceous cyst Cubital tunnel syndrome on left Contusion of right ankle Numbness and tingling in left hand Left hand pain Stiffness of left hand joint Emesis Overweight (BMI 25.0-29.9) Borderline diabetes Dyslipidemia Non-toxic multinodular goiter Diabetes type 2, controlled History of restless legs syndrome Anxiety Depression High cholesterol Asthma DVT (deep venous thrombosis) GERD (gastroesophageal reflux disease) Anastomotic ulcer Surgical History Hx of colonoscopy H/O removal of cyst (02/03/23) History of removal of cyst (07/28/22) Hx of cholecystectomy History of surgery History of surgery on left wrist Hx of elbow surgery History of excision of epidermal inclusion cyst (03/23/22) Hx of excision of epidermal inclusion cyst (12/25/21) History of excision of mass (10/26/21) S/P trigger finger release History of tooth extraction Hx of hand surgery Hx of esophagogastroduodenoscopy S/P gastric bypass History of hysterectomy Family History Family History Mother Diabetes mellitus CHF (congestive heart failure) Kidney failure Cervical cancer Brother No problems noted. Brother No problems noted. 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 Blood pressure elevated. Heart rate normal. Respiratory rate normal. Temperature normal. Oxygen saturation normal. Appearance: Alert. Oriented X3. No acute distress. Head: Normal external exam. Normocephalic. Atraumatic. No Miller signs noted. No raccoon eyes noted Eyes: PERRLA. EOMI. Conjunctiva and sclera normal. Eyelids normal. ENT: TM's Normal. Pharynx normal. Uvula midline. Moist mucous membranes. No trismus noted. No drooling noted. No muffled voice noted. Neck: Normal inspection. Neck supple. FROM. No adenopathy. Thyroid Normal. No meningeal signs. No neck mass noted. CVS: Normal heart rate and rhythm. Heart sound normal. No murmurs noted. Pulses normal throughout. Respiratory: No respiratory distress. Painless inspiration. Breath sounds normal. No wheezes/rales/rhonchi noted. Reproducible point of tenderness over the left chest wall, no step-off, no deformity. No accessory muscle usage noted or decreased air movement noted. Abdomen: Soft and nontender. Bowel sounds normal in all 4 quadrants. No distention noted. No organomegaly noted. No visible injury noted. Back: No CVA tenderness. Full range of motion noted. Skin: Skin warm and dry. Normal skin color. Normal skin turgor. No rashes/lesions/lacerations noted. Extremities: No lower extremity edema. Extremities exhibit normal range of motion. Extremities nontender. Neuro: Oriented X 3. Cranial nerve exam: II-XII are grossly intact No motor deficit. No sensory deficit. Reflexes normal. Course Reevaluation(s) Reevaluation #1: Mid chest pain after pushing heavy carts at work, EKG and cardiac enzymes do not suspect ACS, no risk for pulmonary embolism was negative D-dimer, chest pain believed to be myofascial. Time: 23:08 Medications Administered Discontinued Medications Generic Name Dose Route Start Last Admin Trade Name Freq PRN Reason Stop Dose Admin Acetaminophen 650 mg 08/20/24 20:33 08/20/24 21:42 Acetaminophen 325 Mg Tablet PO 08/20/24 20:34 650 mg ONCE ONE Administration Aspirin 325 mg 08/20/24 20:25 08/20/24 21:48 Aspirin Enteric Coated 325 Mg Tablet. PO 08/20/24 20:26 Not Given ONCE ONE Medical Decision Making Differential Diagnosis Differential Diagnoses: The differential diagnosis associated with the presentation includes (ACS, pneumonia, pneumothorax, pleural effusion, pancreatitis, pulmonary embolism, electrolyte derangement, severe anemia, myofascial chest wall pain.) Admission/Observation Consideration of admission/observation: Escalation of care including admission/observation considered Lab Data MDM Lab Attestation statement: I reviewed the patient's lab results. 08/20/24 19:41 08/20/24 19:41 Labs: Lab Results 08/20/24 08/20/24 Range/Units 19:41 21:30 WBC 6.8 (4.8-10.8) X10*3/uL RBC 4.18 L (4.20-5.50) X10*6/uL Hgb 12.4 (12.0-16.0) g/dl Hct 36.7 L (37.0-47.0) % MCV 87.8 (80.0-98.0) fL MCH 29.7 (27.0-33.0) pg MCHC 33.8 (31.0-35.0) g/dl RDW 12.5 (11.0-16.0) % Plt Count 156 L (160-400) X10*3/uL MPV 10.2 (9.4-12.3) fL Immature Gran % (Auto) 0.1 (0.0-0.4) % Neut % (Auto) 80.2 H (45-73) % Lymph % (Auto) 9.1 L (20-40) % [place] % (Auto) 7.5 (2-11) % Eos % (Auto) 2.8 (0-4) % Baso % (Auto) 0.3 (0-2) % Lymph # (Auto) 0.6 L (1.2-4.9) X10*3/uL [place] # (Auto) 0.5 (0.1-1.2) X10*3/uL Eos # (Auto) 0.2 (0.0-0.4) X10*3/uL Baso # (Auto) 0.0 (0.0-0.2) X10*3/uL Abs Immat Gran (auto) 0.01 (0.00-0.03) X10*3/uL Absolute Neuts (auto) 5.5 (2.0-8.3) x10*3/uL Absolute Nucleated RBC 0.000 (0.0-0.012) X10*3/uL Nucleated RBC % (auto) 0.0 (0.0-0.2) /100WBC D-Dimer High Sensitivty < 150 NG/ML Sodium 138 (135-145) mmol/L Potassium 3.7 (3.3-5.1) mmol/L Chloride 104 (96-108) mmol/L Carbon Dioxide 27 (22-29) mmol/L Anion Gap 11 L (12-20) BUN 12 (9-16) mg/dL Creatinine 0.69 (0.5-1.4) mg/dL Estim Creat Clear Calc 80.2 Estimated GFR > 60 Random Glucose 119 H (60-115) mg/dL Calcium 8.6 (8.4-10.2) mg/dL Magnesium 1.9 (1.6-2.6) mg/dL Total Bilirubin 0.4 (0.0-1.0) mg/dL Direct Bilirubin 0.2 (0.0-0.5) mg/dL AST 21 (5-31) U/L ALT 24 (0-31) U/L Alkaline Phosphatase 78 (39-117) U/L Troponin I High Sens < 2.7 < 2.7 (<3.5-17.0) ng/L B-Natriuretic Peptide 34 (<100) pg/mL Total Protein 6.5 (6.5-8.0) g/dL Albumin 3.7 (3.5-5.0) g/dL Influenza Type A (PCR) NEGATIVE (Negative) Influenza Type B (PCR) NEGATIVE (Negative) RSV RNA Qual (PCR) NEGATIVE (Negative) SARS-CoV-2 RNA (RT-PCR) NEGATIVE (Negative) Independent Interpretation I performed an independent interpretation of an: Plain X-Ray (Chest:No consolidation, pneumothorax, or pleural effusion. Heart size is normal. Degenerative changes include imaged AC joints.) Radiology Impression Discussion of test interpretation with radiology: I have reviewed the radiologist's reading. Discharge Plan Discharge Clinical Impression: Chest wall pain Patient Disposition: Home, Self-Care Instructions: Chest Wall Pain (ED) Prescriptions: No Action cholecalciferol (vitamin D3) 50 mcg (2,000 unit) capsule 50 mcg PO DAILY Qty: 30 11RF (DME) FreeStyle Lite Strips Strip See Rx Instructions .ROUTE .COMPLEX Qty: 150 6RF Dose Instruction: USE TO TEST BLOOD SUGAR TWICE DAILY Rx Instructions: USE TO TEST BLOOD SUGAR TWICE DAILY thiamine HCl (vitamin B1) 100 mg tablet 100 mg PO DAILY Qty: 90 3RF pantoprazole 40 mg tablet,delayed release (DR/EC) 40 mg PO BID Qty: 60 6RF Readi-Cat 2 2 % (w/v) suspension 450 ml PO ONCE Qty: 900 0RF Rx Instructions: Drink both bottles [address] scan hydroxyzine HCl 25 mg tablet 50 mg PO BEDTIME sertraline 100 mg tablet 1 tab PO BEDTIME tizanidine 4 mg tablet 1 tab PO BEDTIME PRN (Reason: Pain) fluticasone propionate [Flonase Allergy Relief] 50 mcg/actuation spray,suspension 2 spray intranasal DAILY Qty: 16 0RF Rx Instructions: administer into each nostril metformin 500 mg tablet extended release 24 hr 500 mg PO BID albuterol sulfate 1.25 mg/3 mL solution for nebulization 1.25 mg inhalation QID PRN (Reason: shortness of breath or wheezing) Qty: 90 0RF albuterol sulfate 90 mcg/actuation Hfa Aerosol Inhaler 2 puff INHALATION Q4-6H PRN (Reason: Shortness Of Breath Or Wheezing) lidocaine [Lidoderm] 5 % adhesive patch,medicated 1 patch topical DAILY Qty: 15 0RF Rx Instructions: leave on most painful area for up to 12 hrs cyclobenzaprine 10 mg tablet 10 mg PO Q8H Qty: 20 0RF meclizine 25 mg tablet 25 mg PO TID PRN (Reason: dizziness) Qty: 20 0RF diclofenac sodium [Aleve (diclofenac)] 1 % gel 2 g topical BID PRN (Reason: pain (scale score 4-6)) Qty: 100 0RF Rx Instructions: apply to single elbow, wrist or hand; for hand includes palm/fingers/back of hand prednisone 20 mg tablet 40 mg PO DAILY 5 Days Qty: 10 0RF hydrochlorothiazide 12.5 mg capsule 12.5 mg PO DAILY (DME) blood-glucose meter [FreeStyle Lite Meter] Kit See Rx Instructions .Route Qty: 1 0RF Rx Instructions: As directed test blood sugar two times a day cyanocobalamin (vitamin B-12) 1,000 mcg tablet 1,000 mcg PO QAM oxycodone 5 mg tablet 5 mg PO Q6H PRN (Reason: severe pain) zolpidem 5 mg tablet 5 mg PO BEDTIME PRN (Reason: insomnia) pramipexole 0.5 mg tablet 0.5 mg PO TID varenicline tartrate 1 mg tablet 1 mg PO BID ferrous sulfate 325 mg (65 mg iron) tablet 325 mg PO QAM ondansetron HCl 4 mg tablet 4 mg PO Q12H PRN (Reason: nausea/vomiting) Referrals: Joyce Tapia MD [Primary Care Provider] - Print Language: Hong Konger
[2024-08-20 20:35] LABS: B Type Natriuretic Peptide 34 pg/mL (<100)
[2024-08-20 20:43] LABS: Influenza A PCR NEGATIVE (Negative); Influenza B PCR NEGATIVE (Negative); Resp Syncy Virus RNA Qual PCR NEGATIVE (Negative); SARS COV2 PCR INHOUSE NEGATIVE (Negative)
[2024-08-20] MEDS: Acetaminophen 325 MG TABLET 650 MG PO (21:42)
[2024-08-20 21:59] LABS: Troponin-I High Sensitivity < 2.7 ng/L (<3.5-17.0)
[2024-08-20 22:36] LABS: D Dimer High Sensitivity < 150 NG/ML
[2024-08-20 23:26] VITALS: BP 112/60; PULSE 82; RESP 16; TEMP 37.1; O2SAT 96
== END 2024-08-20 23:27 | disposition home or self-care (01) ==
PROVIDERS: Physician Assistant Medical; Emergency Provider Emergency Medicine; PCP Student in an Organized Health Care Education/Training Program
DX: R07.89 Other chest pain (principal); K08.89 Other specified disorders of teeth and supporting structures; R06.02 Shortness of breath; Z87.891 Personal history of nicotine dependence; Z79.899 Other long term (current) drug therapy; Z03.818 Encounter for observation for suspected exposure to other biological agents ruled out
CPT/HCPCS: 0241U; 36415; 71045; 80048; 80076; 83735; 83880; 84484; 85025; 85379; 93005; 99284

== ENCOUNTER → 2024-08-20 19:00 | Outpatient (BNV) | payer OTHER, SELFPAY | PROVIDERS: Emergency Provider Emergency Medicine; PCP Student in an Organized Health Care Education/Training Program; Visit Provider Internal Medicine | DX: R07.9 Chest pain, unspecified (principal) | CPT/HCPCS: 93010 ==

== ENCOUNTER → 2024-08-20 19:29 | Outpatient (BNV) | payer OTHER, SELFPAY | PROVIDERS: Emergency Provider Emergency Medicine; PCP Student in an Organized Health Care Education/Training Program; Visit Provider Radiology Neuroradiology | DX: R07.9 Chest pain, unspecified (principal) | CPT/HCPCS: 71045 ==

== ENCOUNTER 2024-09-11 13:51 | Outpatient (REF) | payer OTHER, SELFPAY ==
--- NOTE | ~2024-09-11 | CT_ITS ---
CLINICAL HISTORY: R10.9 - Unspecified abdominal pain CT abdomen and pelvis with contrast Comparison: CT/HI/SR - CT ABDOMEN PELVIS WO IV CON - 05/10/24 19:03 EST Findings: The lung bases are clear. The gallbladder and solid organs are within normal limits. No renal stones. No bowel obstruction, pneumoperitoneum, or pneumatosis. The patient is status post gastric bypass surgery. The patient is status post hysterectomy. No acute fracture. IMPRESSION: No acute findings. This document has been electronically signed by: Sukhwinder Rebolledo MD on 09/12/2024 13:12:22
[2024-09-11] MEDS: iohexoL 350 MG/ML 100 ML INFUS..BTL IV (16:48)
--- OUTSIDE RECORDS SUMMARY | 2024-09-11 16:50 | XMS_ITS | Encounter Summary ---
Author Organization [employer] Address [address] [place] [address] Care Team Providers Care Welder Gas Tungsten Arc Name Role Phone Joyce Tapia MD Primary Care Provider [phone] Reason for Visit * Reason Comments Med Refill Encounter Details Date Type Department Care Team ([facility] st Contact Info) Description 09/07/2024 Refill [facility] MED & PEDS [address] [place], [place] [phone] Joyce Tapia MD [address] [place] [address] Social History Tobacco Use Types Packs/Day Years [...] Care Team (Late st Contact Info) Description 09/14/2024 9:15 AM EDT Office Visit [facility] MED & PEDS [address] [place] [address] Joyce Tapia MD [address] [place] [address] 09/17/2024 9:30 AM EDT Medication Management [facility] PED[facility] [address] [place] [address] Cristal Muhammad, PharmD [address] [place] [address] 10/18/2024 10:00 AM EDT Clinical Support [facility] P[facility] [address] [place] [address] Katherine Casper, RN [address] [place] [address] documented as of this encounter Visit Diagnoses Not on filedocumented in this encounter Care Teams Welder Gas Tungsten Arc Relationship Specialty Start Date End Date Joyce Tapia MD [address] [place] [address] PCP - General Family Medicine 06/19/12 documented as of this encounter
--- OUTSIDE RECORDS SUMMARY | 2024-09-11 16:50 | XMS_ITS | Encounter Summary ---
Author Organization [employer] Address [address] [place] [address] Care Team Providers Care Bonding Machine Tender Name Role Phone Joyce Tapia MD Primary Care Provider [phone] Reason for Visit * Reason Comments Pre-visit Planning SDOH screening compl eted on 08/30/24 Encounter Details Date Type Department Care Team ([facility] st Contact Info) Description 09/07/2024 Patient Outreach [facility] MEDICINE [address] [place] [address] Joyce Tapia MD [address] [place] [address] Pre-visit Planning (SDOH screening completed on 08/30/24) Social History Tobacco Use Types Packs/Day Years [...] as of this encounter Progress Notes * Gracie Tillman - 09/07/2024 9:53 AM EST CC Gracie placed successful outbound call to patient for pre-visit planning. Patient name and confirmed. Patient confirms appt date and time, and has transportation. Biggest concern for appointment at this time is none Patient advised to bring to appointment a photo id and insurance card. Appropriate screenings completed in anticipation of appointment. documented in this encounter Plan of Treatment Upcoming Encounters Date Type Department Care Team (Late st Contact Info) Description 09/14/2024 9:15 AM EDT Office Visit [facility] MED & PEDS [address] [place] [address] Joyce Tapia MD [address] [place] [address] 09/17/2024 9:30 AM EDT Medication Management [facility] [address] [place] [address] Cristal Muhammad, BobD [address] [place] [address] 10/18/2024 10:00 AM EDT Clinical Support [facility] [address] [place] [address] Katherine Casper, MAKEDA [address] [place] [address] documented as of this encounter Visit Diagnoses Not on filedocumented in this encounter Care Teams Bonding Machine Tender Relationship Specialty Start Date End Date Joyce Tapia MD [address] [place] [address] PCP - General Family Medicine 06/19/12 documented as of this encounter
--- OUTSIDE RECORDS SUMMARY | 2024-09-11 16:50 | XMS_ITS | Encounter Summary ---
Author Organization [employer] Address [address] [facility] [facility] [address] 7t [place] [address] Care Team Providers Care Template Clerk Name Role Phone Joyce Tapia MD Primary Care Provider [phone] Reason for Visit * Reason Onset Date Comments Med Refill 07/19/2024 Encounter Details Date Type Department Care Team ([facility] st Contact Info) Description 07/19/2024 Refill [facility] CHC MED & PEDS [address] [place], [place] [phone] Joyce Tapia MD 505 [place] [address] Social History Tobacco Use Types Packs/Day Years [...] Description 09/14/2024 9:15 AM EDT Office Visit [facility] MED & PEDS 505 [place] [address] Joyce Tapia MD 505 [place] [address] 09/17/2024 9:30 AM EDT Medication Management [facility] MED & PEDS 505 [place] [address] Cristal Muhammad, PharmD 230 [place] [address] 10/18/2024 10:00 AM EDT Clinical Support [facility] MED & PEDS 505 [place] [address] Katherine Casper, RN 505 [place] [address] documented as of this encounter Visit Diagnoses Not on filedocumented in this encounter Care Teams Template Clerk Relationship Specialty Start Date End Date Joyce Tapia MD 230 [place] [address] PCP - General Family Medicine 06/19/12 documented as of this encounter
--- OUTSIDE RECORDS SUMMARY | 2024-09-11 16:50 | XMS_ITS | Encounter Summary ---
Author Organization [employer] Address [address] [facility] [address] 7t [place] [address] Care Team Providers Care Tip Length Checker Name Role Phone Joyce Tapia MD Primary Care Provider [phone] Reason for Visit * Reason Comments Med Refill Encounter Details Date Type Department Care Team ([facility] st Contact Info) Description 04/12/2024 Refill [facility] CHC MED & PEDS 505 [place], [place] [phone] Joyce Tapia MD 505 [place] [address] Status post surgical removal of nail matrix [...] Description 09/14/2024 9:15 AM EDT Office Visit [facility] MED & PEDS 505 [place] [address] Joyce Tapia MD [address] [place] [address] 09/17/2024 9:30 AM EDT Medication Management [facility] MED & PEDS 505 [place] [address] Cristal Muhammad PharmD 230 [place] [address] 10/18/2024 10:00 AM EDT Clinical Support [facility] MED & PEDS 505 [place] [address] Katherine Casper, RN 505 [place] [address] documented as of this encounter Visit Diagnoses Diagnosis Status post surgical removal of nail matrix of toe of left foot documented in this encounter Care Teams Tip Length Checker Relationship Specialty Start Date End Date Joyce Tapia MD 230 [place] [address] PCP - General Family Medicine 06/19/12 documented as of this encounter
--- OUTSIDE RECORDS SUMMARY | 2024-09-11 16:50 | XMS_ITS | Encounter Summary ---
Author Organization [employer] Address [address] [facility] 7t [place] [address] Care Team Providers Care Sweep Molder Name Role Phone Joyce Tapia MD Primary Care Provider [phone] Reason for Visit * Reason Onset Date Comments Med Refill 09/05/2024 Encounter Details Date Type Department Care Team (Late st Contact Info) Description 09/05/2024 Refill [facility] CHC MED & PEDS 505 [place], [place] [phone] Joyce Tapia MD 505 [place] [address] Status post surgical removal of nail matrix [...] [facility] 505 [place] [address] Joyce Tapia MD 505 [place] [address] 09/17/2024 9:30 AM EDT Medication Management [facility] MED & PEDS 505 [place] [address] Cristal Muhammad PharmD 230 [place] [address] 10/18/2024 10:00 AM EDT Clinical Support [facility] MED & PEDS 505 [place] [address] Katherine Casper, MAKEDA 505 [place] [address] documented as of this encounter Visit Diagnoses Diagnosis Status post surgical removal of nail matrix of toe of left foot documented in this encounter Care Teams Sweep Molder Relationship Specialty Start Date End Date Joyce Tapia MD 230 [place] [address] PCP - General Family Medicine 06/19/12 documented as of this encounter
--- OUTSIDE RECORDS SUMMARY | 2024-09-11 16:50 | XMS_ITS | Encounter Summary ---
Author Organization [employer] Address [address] [facility] 7t [place] [address] Care Team Providers Care Horser Up Name Role Phone Joyce Tapia MD Primary Care Provider [phone] Reason for Visit * Reason Onset Date Comments Med Refill 03/17/2023 Encounter Details Date Type Department Care Team (Late st Contact Info) Description 03/17/2023 Telephone [facility] CHC MED & PEDS 505 [place] [address] Joyce Tapia MD 505 [place] [address] Med Refill Social History Tobacco Use Types [...] Description 09/14/2024 9:15 AM EDT Office Visit [facility] MED & PEDS 505 [place] [address] Joyce Tapia MD 505 [place] [address] 09/17/2024 9:30 AM EDT Medication Management [facility] MED & PEDS 505 [place] [address] Cristal Muhammad, BobD 230 [place] [address] 10/18/2024 10:00 AM EDT Clinical Support [facility] MED & PEDS 505 [place] [address] Katherine Casper, RN 505 [place] [address] documented as of this encounter Visit Diagnoses Not on filedocumented in this encounter Care Teams Horser Up Relationship Specialty Start Date End Date Joyce Tapia MD 230 [place] [address] PCP - General Family Medicine 06/19/12 documented as of this encounter
--- OUTSIDE RECORDS SUMMARY | 2024-09-11 16:50 | XMS_ITS | Encounter Summary ---
Author Organization [employer] Address [address] [facility] 7t [place] [address] Care Team Providers Care Motorboat Mechanic Helper Name Role Phone Joyce Tapia MD Primary Care Provider [phone] Reason for Visit * Reason Onset Date Comments Med Refill 09/10/2024 Encounter Details Date Type Department Care Team (Late st Contact Info) Description 09/10/2024 Refill [facility] CHC MED & PEDS 505 [place], [place] [phone] Joyce Tapia MD 505 [place] [address] Status post surgical removal of nail matrix [...] Description 09/14/2024 9:15 AM EDT Office Visit [facility] MED & PEDS 505 [place] [address] Joyce Tapia MD 505 [place] [address] 09/17/2024 9:30 AM EDT Medication Management [facility] MED & PEDS 505 [place] [address] Cristal Muhammad PharmD 230 [place] [address] 10/18/2024 10:00 AM EDT Clinical Support [facility] MED & PEDS 505 [place] [address] Katherine Casper, MAKEDA 505 [place] [address] documented as of this encounter Visit Diagnoses Diagnosis Status post surgical removal of nail matrix of toe of left foot documented in this encounter Care Teams Motorboat Mechanic Helper Relationship Specialty Start Date End Date Joyce Tapia MD 230 [place] [address] PCP - General Family Medicine 06/19/12 documented as of this encounter
--- OUTSIDE RECORDS SUMMARY | 2024-09-11 16:50 | XMS_ITS | Encounter Summary ---
Author Organization [employer] Address [address] [facility] 7t [place] [address] Care Team Providers Care Health And Wellness Coordinator Name Role Phone Joyce Tapia MD Primary Care Provider [phone] Reason for Visit * Reason Onset Date Comments Med Refill 07/25/2024 Encounter Details Date Type Department Care Team (Late st Contact Info) Description 07/25/2024 Refill [facility] 230 [place] [address] Emerson Keith MD 505 [place] [address] Status post surgical removal of nail matrix [...] Description 09/14/2024 9:15 AM EDT Office Visit [facility] MED & PEDS 505 [place] [address] Joyce Tapia MD 505 [place] [address] 09/17/2024 9:30 AM EDT Medication Management [facility] MED & PEDS 505 [place] [address] Cristal Muhammad PharmD 230 [place] [address] 10/18/2024 10:00 AM EDT Clinical Support [facility] MED & PEDS 505 [place] [address] Katherine Casper, MAKEDA 505 [place] [address] documented as of this encounter Visit Diagnoses Diagnosis Status post surgical removal of nail matrix of toe of left foot documented in this encounter Care Teams Health And Wellness Coordinator Relationship Specialty Start Date End Date Joyce Tapia MD 230 [place] [address] PCP - General Family Medicine 06/19/12 documented as of this encounter
--- OUTSIDE RECORDS SUMMARY | 2024-09-11 16:50 | XMS_ITS | Encounter Summary ---
Author Organization [employer] Address [address] 7t [place] [address] Care Team Providers Care Telephone Exchange Operator Name Role Phone Joyce Tapia MD Primary Care Provider [phone] Reason for Visit * Reason Onset Date Comments Med Refill 04/19/2024 Encounter Details Date Type Department Care Team (Late st Contact Info) Description 04/19/2024 Refill [facility] MEDICINE 230 [place] [address] Joyce Tapia MD [address] [place] [address] Status post surgical removal of nail matrix [...] [facility] MED & PEDS 505 [place] [address] Joyce Tapia MD 505 [place] [address] 09/17/2024 9:30 AM EDT Medication Management [facility] MED & PEDS 505 [place] [address] Cristal Muhammad PharmD 230 [place] [address] 10/18/2024 10:00 AM EDT Clinical Support [facility] MED & PEDS 505 [place] [address] Katherine Casper, MAKEDA 505 [place] [address] documented as of this encounter Visit Diagnoses Diagnosis Status post surgical removal of nail matrix of toe of left foot documented in this encounter Care Teams Telephone Exchange Operator Relationship Specialty Start Date End Date Joyce Tapia MD 230 [place] [address] PCP - General Family Medicine 06/19/12 documented as of this encounter
--- OUTSIDE RECORDS SUMMARY | 2024-09-11 16:50 | XMS_ITS | Encounter Summary ---
Author Organization [employer] Address [address] [facility] [address] 7t [place] [address] Care Team Providers Care Casino Games Dealer Name Role Phone Joyce Tapia MD Primary Care Provider [phone] Reason for Visit * Reason Onset Date Comments Med Refill 09/05/2024 Encounter Details Date Type Department Care Team ([facility] st Contact Info) Description 09/05/2024 Refill [facility] CHC MED & PEDS 505 [place], [place] [phone] Jenny Schmidt MD 505 [place] [address] Pain Social History Tobacco Use Types Packs/Day Years [...] Description 09/14/2024 9:15 AM EDT Office Visit [facility] MED & PEDS 505 [place] [address] Joyce Tapia MD 505 [place] [address] 09/17/2024 9:30 AM EDT Medication Management [facility] MED & PEDS 505 [place] [address] Cristal Muhammad, PharmD 230 [place] [address] 10/18/2024 10:00 AM EDT Clinical Support [facility] MED & PEDS 505 [place] [address] Katherine Casper, RN 505 [place] [address] documented as of this encounter Visit Diagnoses Diagnosis Pain Generalized pain documented in this encounter Care Teams Casino Games Dealer Relationship Specialty Start Date End Date Joyce Tapia MD 230 [place] [address] PCP - General Family Medicine 06/19/12 documented as of this encounter
--- OUTSIDE RECORDS SUMMARY | 2024-09-11 16:50 | XMS_ITS | Encounter Summary ---
Author Organization [employer] Address [address] [facility] [address] 7t [place] [address] Care Team Providers Care Instrument Lens Inspector Name Role Phone Joyce Tapia MD Primary Care Provider [phone] Reason for Visit * Reason Onset Date Comments Med Refill 09/11/2024 Encounter Details Date Type Department Care Team (Late st Contact Info) Description 09/11/2024 Telephone [facility] MEDICINE 230 [place] [address] Joyce Tapia MD [address] [place], [place] [phone] Med Refill Social History Tobacco Use Types [...] * Telephone Encounter - Sha Harris - 09/11/2024 9:37 AM EDT TC from pt requesting medication refill. Medications needing refill : oxyCODONE (Roxicodone) 5 MG immediate release tablet To be sent to: [facility]/pharmacy #[id number] NAKUL RYDER - [address] [facility] documented in this encounter Plan of Treatment Upcoming Encounters Date Type Department Care Team (Late st Contact Info) Description 09/14/2024 9:15 AM EDT Office Visit [facility] MED & PEDS 505 [place] [address] Joyce Tapia MD 505 [place] [address] 09/17/2024 9:30 AM EDT Medication Management [facility] MED & PEDS 505 [place] [address] Cristal Muhmamad, PharmD 230 [place] [address] 10/18/2024 10:00 AM EDT Clinical Support [facility] MED & PEDS 505 [place], [place] [phone] Katherine Casper, MAKEDA 505 [place], [place] documented as of this encounter Visit Diagnoses Not on filedocumented in this encounter Care Teams Instrument Lens Inspector Relationship Specialty Start Date End Date Joyce Tapia MD [address] [place] [address] PCP - General Family Medicine 06/19/12 documented as of this encounter
--- OUTSIDE RECORDS SUMMARY | 2024-09-11 16:50 | XMS_ITS | Encounter Summary ---
Author Organization [employer] Address [address] [facility] [address] 7t [place] [address] Care Team Providers Care Shipping/Receiving Manager Name Role Phone Joyce Tapia MD Primary Care Provider [phone] Reason for Visit * Reason Onset Date Comments Med Refill 04/18/2024 Encounter Details Date Type Department Care Team (Late st Contact Info) Description 04/18/2024 Refill [facility] MEDICINE 230 [place], [place] [phone] Amber Palacio MD 230 [place], [place] [phone] Smoker Social History Tobacco Use Types Packs/Day [...] Description 09/14/2024 9:15 AM EDT Office Visit [facility] MED & PEDS 505 [place] [address] Joyce Tapia MD 505 [place] [address] 09/17/2024 9:30 AM EDT Medication Management [facility] MED & PEDS 505 [place] [address] Cristal Muhammad, PharmD 230 [place] [address] 10/18/2024 10:00 AM EDT Clinical Support [facility] MED & PEDS 505 [place] [address] Katherine Casper, RN 505 [place] [address] documented as of this encounter Visit Diagnoses Diagnosis Smoker Tobacco use disorder documented in this encounter Care Teams Shipping/Receiving Manager Relationship Specialty Start Date End Date Joyce Tapia MD 230 [place] [address] PCP - General Family Medicine 06/19/12 documented as of this encounter
--- OUTSIDE RECORDS SUMMARY | 2024-09-11 16:50 | XMS_ITS | Encounter Summary ---
Author Organization [employer] Address [address] [facility] [address] 7t [place] [address] Care Team Providers Care Preassembler And Inspector Name Role Phone Joyce Tapia MD Primary Care Provider [phone] Encounter Details Date Type Department Care Team (Late st Contact Info) Description 09/03/2024 Telephone [facility] CHC MED & PEDS [address] [place], [place] [phone] Cristal Muhammad, PharmD 230 [place] [address] Social History Tobacco Use Types Packs/Day Years [...] encounter Miscellaneous Notes * Telephone Encounter - Cristal Muhammad PharmD - 09/03/2024 1:25 PM EST Pharmacy Brief Encounter - Smoking Cessation Check In Pharmacist: Cristal Muhammad PharmD Nayely Grover is a 63 y.o. year old patient here for CDTM - Smoking Cessation completed over the phone. Pharmacotherapy: Chantix 1mg twice daily Summary of previous encounter(s): Prescribed Chantix starting month box on 08/07/24 Today's Visit: Patient reports Chantix treatment is going very well . Denies any urge to smoke and agrees to continue treatment for at least 12 weeks. Plan: Changed Chantix to 1mg twice daily maintenance therapy. Patient requests that prescription be sent to [facility]. Follow up in next scheduled CDTM visit in 2 weeks. documented in this encounter Plan of Treatment Upcoming Encounters Date Type Department Care Team ([facility] st Contact Info) Description 09/14/2024 9:15 AM EDT Office Visit [facility] CHC MED & PEDS 505 [place] [address] Joyce Tapia MD [address] [place] [address] 09/17/2024 9:30 AM EDT Medication Management [facility] MED & PEDS 505 [place] [address] Cristal Muhammad PharmD 230 [place] [address] 10/18/2024 10:00 AM EDT Clinical Support [facility] MED & PEDS 505 [place] [address] Katherine Casper, RN 505 [place], [place] documented as of this encounter Visit Diagnoses Not on filedocumented in this encounter Care Teams Preassembler And Inspector Relationship Specialty Start Date End Date Joyce Tapia MD 230 [place] [address] PCP - General Family Medicine 06/19/12 documented as of this encounter
--- OUTSIDE RECORDS SUMMARY | 2024-09-11 16:50 | XMS_ITS | Encounter Summary ---
Author Organization [employer] Address 75 [facility] 7t [place] [address] Care Team Providers Care Forensic Toxicologist Name Role Phone Joyce Tapia MD Primary Care Provider [phone] Reason for Visit * Reason Onset Date Comments Med Refill 09/05/2024 Encounter Details Date Type Department Care Team (Late st Contact Info) Description 09/05/2024 Refill [facility] CHC MED & PEDS 505 [place], [place] [phone] Joyce Tapia MD 505 [place] [address] Status post surgical removal of nail matrix [...] encounter Miscellaneous Notes * Telephone Encounter - Carrie Howard - 09/05/2024 11:34 AM EST TC from pt requesting medication refill. Medications needing refill : oxyCODONE (Roxicodone) 5 MG immediate release tablet To be sent to: [facility]/pharmacy #[id number] NAKUL RYDER - [address] [facility] documented in this encounter Plan of Treatment Upcoming Encounters Date Type Department Care Team (Late st Contact Info) Description 09/14/2024 9:15 AM EDT Office Visit [facility] MED & PEDS 505 [place] [address] Joyce Tapia MD 505 [place] [address] 09/17/2024 9:30 AM EDT Medication Management [facility] MED & PEDS 505 [place] [address] Cristal Muhammad, PharmD 230 [place], [place] [phone] 10/18/2024 10:00 AM EDT Clinical Support [facility] MED & PEDS 505 [place] [address] Katherine Casper, MAKEDA 505 [place], [place] documented as of this encounter Visit Diagnoses Diagnosis Status post surgical removal of nail matrix of toe of left foot documented in this encounter Care Teams Forensic Toxicologist Relationship Specialty Start Date End Date Joyce Tapia MD [address] [place] [address] PCP - General Family Medicine 06/19/12 documented as of this encounter
--- OUTSIDE RECORDS SUMMARY | 2024-09-11 16:50 | XMS_ITS | Encounter Summary ---
Author Organization [employer] Address [address] [facility] [address] 7t [place] [address] Care Team Providers Care Flight Nurse Name Role Phone Joyce Tapia MD Primary Care Provider [phone] Reason for Visit * Reason Onset Date Comments Med Refill 08/17/2024 Encounter Details Date Type Department Care Team (Late st Contact Info) Description 08/17/2024 Refill [facility] MEDICINE 230 [place] [address] Joyce Tapia MD [address] [place] [address] Status post surgical removal of nail matrix [...] [facility] MED & PEDS 505 [place] [address] Joyce Tapia MD 505 [place] [address] 09/17/2024 9:30 AM EDT Medication Management [facility] MED & PEDS 505 [place] [address] Cristal Muhammad PharmD 230 [place] [address] 10/18/2024 10:00 AM EDT Clinical Support [facility] MED & PEDS 505 [place] [address] Katherine Casper, MAKEDA 505 [place] [address] documented as of this encounter Visit Diagnoses Diagnosis Status post surgical removal of nail matrix of toe of left foot documented in this encounter Care Teams Flight Nurse Relationship Specialty Start Date End Date Joyce Tapia MD 230 [place] [address] PCP - General Family Medicine 06/19/12 documented as of this encounter
--- OUTSIDE RECORDS SUMMARY | 2024-09-11 16:50 | XMS_ITS | Encounter Summary ---
Author Organization [employer] Address [address] [facility] [address] 7t [place] [address] Care Team Providers Care Supervisor Paint Roller Covers Name Role Phone Joyce Tapia MD Primary Care Provider [phone] Reason for Visit * Reason Onset Date Comments Med Refill 04/11/2024 Encounter Details Date Type Department Care Team ([facility] st Contact Info) Description 04/11/2024 Telephone [facility] CHC MED & PEDS 505 [place], [place] [phone] Joyce Tapia MD 505 [place] [address] Med Refill Social History Tobacco Use Types [...] immediate release tablet To be sent to: [facility] [place], [place] - [address] [place] [address] documented in this encounter Plan of Treatment Upcoming Encounters Date Type Department Care Team ([facility] st Contact Info) Description 09/14/2024 9:15 AM EDT Office Visit [facility] MED & PEDS 505 [place] [address] Joyce Tapia MD 505 [place] [address] 09/17/2024 9:30 AM EDT Medication Management [facility] MED & PEDS 505 [place] [address] Cristal Muhammad, PharmD 230 [place] [address] 10/18/2024 10:00 AM EDT Clinical Support [facility]C MED & PEDS 505 [place] [address] Katherine Casper, RN 505 [place] [address] documented as of this encounter Visit Diagnoses Not on filedocumented in this encounter Care Teams Supervisor Paint Roller Covers Relationship Specialty Start Date End Date Joyce Tapia MD [address] [place] [address] PCP - General Family Medicine 06/19/12 documented as of this encounter
--- OUTSIDE RECORDS SUMMARY | 2024-09-11 16:51 | XMS_ITS | Encounter Summary ---
Author Organization [employer] Address [address] [facility] 7t [place] [address] Care Team Providers Care Room Maid Name Role Phone Joyce Tapia MD Primary Care Provider [phone] Reason for Visit * Reason Onset Date Comments Med Refill 10/24/2023 Encounter Details Date Type Department Care Team ([facility] st Contact Info) Description 10/24/2023 Telephone [facility] MEDICINE 230 [place], [place] [phone] Joyce Tapia MD [address] [place] [address] Med Refill Social History Tobacco Use Types [...] to: [facility] - [place] - [address] [facility] documented in this encounter Plan of Treatment Upcoming Encounters Date Type Department Care Team (Late st Contact Info) Description 09/14/2024 9:15 AM EDT Office Visit [facility] MED & PEDS 505 [place] [address] Joyce Tapia MD 505 [place] [address] 09/17/2024 9:30 AM EDT Medication Management [facility] MED & PEDS 505 [place] [address] Cristal Muhammad PharmD 230 [place] [address] 10/18/2024 10:00 AM EDT Clinical Support [facility] MED & PEDS 505 [place] [address] Katherine Casper, MAKEDA 505 [place] [address] documented as of this encounter Visit Diagnoses Not on filedocumented in this encounter Care Teams Room Maid Relationship Specialty Start Date End Date Joyce Tapia MD 230 [place] [address] PCP - General Family Medicine 06/19/12 documented as of this encounter
--- OUTSIDE RECORDS SUMMARY | 2024-09-11 16:51 | XMS_ITS | Encounter Summary ---
Author Organization [employer] Address 75 [facility] 7t [place] [address] Care Team Providers Care Sheriff Officer Name Role Phone Joyce Tapia MD Primary Care Provider [phone] Reason for Visit * Reason Onset Date Comments Med Refill 07/27/2024 Encounter Details Date Type Department Care Team (Late st Contact Info) Description 07/27/[address] [facility] MEDICINE [address] [place] [address] Emerson Keith MD 505 [place] [address] Status post surgical removal of nail matrix [...] Description 09/14/2024 9:15 AM EDT Office Visit [facility] MED & PEDS 505 [place] [address] Joyce Tapia MD 505 [place] [address] 09/17/2024 9:30 AM EDT Medication Management [facility] MED & PEDS [address] [place] [address] Cristal Muhammad PharmD 230 [place] [address] 10/18/2024 10:00 AM EDT Clinical Support [facility] MED & PEDS [address] [place] [address] Katherine Casper, MAKEDA 505 [place] [address] documented as of this encounter Visit Diagnoses Diagnosis Status post surgical removal of nail matrix of toe of left foot documented in this encounter Care Teams Sheriff Officer Relationship Specialty Start Date End Date Joyce Tapia MD 230 [place] [address] PCP - General Family Medicine 06/19/12 documented as of this encounter
--- OUTSIDE RECORDS SUMMARY | 2024-09-11 16:51 | XMS_ITS | Encounter Summary ---
Author Organization [employer] Address [address] [facility] [address] 7t [place] [address] Care Team Providers Care Civil Engineer Name Role Phone Joyce Tapia MD Primary Care Provider [phone] Reason for Visit * Reason Onset Date Comments Med Refill 07/13/2024 Encounter Details Date Type Department Care Team ([facility] st Contact Info) Description 07/13/2024 Refill [facility] MED & PEDS 505 [place], [place] [phone] Joyce Tapia MD 505 [place] [address] Social History Tobacco Use Types Packs/Day Years [...] 9:15 AM EDT Office Visit [facility] MED & PEDS 505 [place] [address] Joyce Tapia MD 505 [place] [address] 09/17/2024 9:30 AM EDT Medication Management [facility] 505 [place] [address] Cristal Muhammad, PharmD 230 [place] [address] 10/18/2024 10:00 AM EDT Clinical Support [facility] MED [facility] PED[facility] 505 [place] [address] Katherine Casper, RN 505 [place] [address] documented as of this encounter Visit Diagnoses Not on filedocumented in this encounter Care Teams Civil Engineer Relationship Specialty Start Date End Date Joyce Tapia MD 230 [place] [address] PCP - General Family Medicine 06/19/12 documented as of this encounter
--- OUTSIDE RECORDS SUMMARY | 2024-09-11 16:51 | XMS_ITS | Encounter Summary ---
Author Organization [employer] Address [address] [facility] [address] 7t [place] [address] Care Team Providers Care Glass Cylinder Flanger Name Role Phone Joyce Tapia MD Primary Care Provider [phone] Reason for Visit * Reason Onset Date Comments Med Refill 07/13/2024 Encounter Details Date Type Department Care Team (Late st Contact Info) Description 07/13/[address] [facility] MEDICINE 230 [place], [place] [phone] Amber Palacio MD 230 [place], [place] [phone] Smoker Social History Tobacco Use Types Packs/Day [...] Description 09/14/2024 9:15 AM EDT Office Visit [facility] MED & PEDS 505 [place] [address] Joyce Tapia MD 505 [place] [address] 09/17/2024 9:30 AM EDT Medication Management [facility] MED & PEDS [address] [place] [address] Cristal Muhammad, PharmD 230 [place] [address] 10/18/2024 10:00 AM EDT Clinical Support [facility] MED & PEDS [address] [place] [address] Katherine Casper, RN 505 [place] [address] documented as of this encounter Visit Diagnoses Diagnosis Smoker Tobacco use disorder documented in this encounter Care Teams Glass Cylinder Flanger Relationship Specialty Start Date End Date Joyce Tapia MD 230 [place] [address] PCP - General Family Medicine 06/19/12 documented as of this encounter
--- OUTSIDE RECORDS SUMMARY | 2024-09-11 16:51 | XMS_ITS | Encounter Summary ---
Author Organization [employer] [facility] Address 75 [facility] 7t [place] [address] Care Team Providers Care Aircraft Maintenance Engineer Name Role Phone Joyce Tapia MD Primary Care Provider [phone] Reason for Visit * Reason Comments Med Refill Encounter Details Date Type Department Care Team (Late st Contact Info) Description 11/04/2023 Refill [facility] MED & PEDS 505 [place] [address] Joyce Tapia MD 505 [place] [address] Status post surgical removal of nail matrix [...] [facility] [address] [place], [place] [phone] Joyce Tapia MD 505 [place] [address] 09/17/2024 9:30 AM EDT Medication Management [facility] MED & PEDS 505 [place] [address] Cristal Muhammad PharmD 230 [place] [address] 10/18/2024 10:00 AM EDT Clinical Support [facility] MED & PEDS 505 [place] [address] Katherine Casper, RN 505 [place] [address] documented as of this encounter Visit Diagnoses Diagnosis Status post surgical removal of nail matrix of toe of left foot documented in this encounter Care Teams Aircraft Maintenance Engineer Relationship Specialty Start Date End Date Joyce Tapia MD 230 [place] [address] PCP - General Family Medicine 06/19/12 documented as of this encounter
--- OUTSIDE RECORDS SUMMARY | 2024-09-11 16:51 | XMS_ITS | Encounter Summary ---
Author Organization [employer] Address 75 [facility] 7t [place] [address] Care Team Providers Care Supervisor Inspection Department Name Role Phone Joyce Tapia MD Primary Care Provider [phone] Encounter Details Date Type Department Care Team (Late Contact Info) Description 10/26/2022 Orders Only [facility] MED & PEDS 505 [place], [place] [phone] Emerson Keith MD 505 [place], [place] [phone] Social History Tobacco Use Types Packs/Day Years [...] Description 09/14/2024 9:15 AM EDT Office Visit [facility] MED & PEDS 505 [place], [place] [phone] Joyce Tapia MD 505 [place] [address] 09/17/2024 9:30 AM EDT Medication Management [facility] MED & PEDS 505 [place] [address] Cristal Muhammad PharmD 230 [place] [address] 10/18/2024 10:00 AM EDT Clinical Support [facility] MED & PEDS 505 [place] [address] Katherine Casper, MAKEDA 505 [place] [address] documented as of this encounter Visit Diagnoses Not on filedocumented in this encounter Care Teams Supervisor Inspection Department Relationship Specialty Start Date End Date Joyce Tapia MD [address] [place] [address] PCP - General Family Medicine 06/19/12 documented as of this encounter
--- OUTSIDE RECORDS SUMMARY | 2024-09-11 16:51 | XMS_ITS | Encounter Summary ---
Author Organization [employer] [facility] Address 75 [facility] 7t [place] [address] Care Team Providers Care Air Brake Adjuster Name Role Phone Joyce Tapia MD Primary Care Provider Encounter Details Date Type Department Care Team (Late st Contact Info) Description 09/27/2022 Orders Only [facility] MEDICINE 230 [place], [place] [phone] Comfort Estrada LPN Social History Tobacco Use [...] Description 09/14/2024 9:15 AM EDT Office Visit [facility] MED & PEDS 505 [place], [place] [phone] Joyce Tapia MD 505 [place] [address] 09/17/2024 9:30 AM EDT Medication Management [facility] MED & PEDS 505 [place] [address] Cristal Muhammad PharmD 230 [place] [address] 10/18/2024 10:00 AM EDT Clinical Support [facility] MED & PEDS 505 [place] [address] Katherine Casper, RN 505 [place], [place] documented as of this encounter Visit Diagnoses Not on filedocumented in this encounter Care Teams Air Brake Adjuster Relationship Specialty Start Date End Date Joyce Tapia MD 230 [place] [address] PCP - General Family Medicine 06/19/12 documented as of this encounter
--- OUTSIDE RECORDS SUMMARY | 2024-09-11 16:51 | XMS_ITS | Encounter Summary ---
Author Organization [employer] Address [address] [facility] [address] 7t [place] [address] Care Team Providers Care Infant And Toddler Teacher Name Role Phone Joyce Tapia MD Primary Care Provider [phone] Reason for Visit * Reason Onset Date Comments Med Refill 04/25/2024 Encounter Details Date Type Department Care Team ([facility] st Contact Info) Description 04/25/2024 Telephone [facility] MEDICINE 230 [place] [address] Joyce Tapia MD [address] [place], [place] [phone] Med Refill Social History Tobacco Use Types [...] (Roxicodone) 5 MG To be sent to: [facility] documented in this encounter Plan of Treatment Upcoming Encounters Date Type Department Care Team (Late st Contact Info) Description 09/14/2024 9:15 AM EDT Office Visit [facility] MED & PEDS 505 [place] [address] Joyce Tapia MD 505 [place] [address] 09/17/2024 9:30 AM EDT Medication Management [facility] MED & PEDS 505 [place] [address] Cristal Muhammad, PharmD 230 [place] [address] 10/18/2024 10:00 AM EDT Clinical Support [facility] MED & PEDS [address] [place] [address] Katherine Casper, MAKEDA 505 [place] [address] documented as of this encounter Visit Diagnoses Not on filedocumented in this encounter Care Teams Infant And Toddler Teacher Relationship Specialty Start Date End Date Joyce Tapia MD [address] [place] [address] PCP - General Family Medicine 06/19/12 documented as of this encounter
--- OUTSIDE RECORDS SUMMARY | 2024-09-11 16:51 | XMS_ITS | Encounter Summary ---
Author Organization [employer] Address 75 [facility] 7t [place] [address] Care Team Providers Care Custodial Operations Manager Name Role Phone Joyce Tapia MD Primary Care Provider [phone] Reason for Visit * Reason Comments Med Refill Encounter Details Date Type Department Care Team ([facility] st Contact Info) Description 08/10/[address] [facility] MED & PEDS 505 [place], [place] [phone] Emerson Keith MD 505 [place] [address] Social History Tobacco Use Types Packs/Day Years [...] t he electric, gas, oil or water [employer] threatened to shut off services in your [...] [facility] 505 [place] [address] Joyce Tapia MD 505 [place] [address] 09/17/2024 9:30 AM EDT Medication Management [facility] MED & PEDS [address] [place] [address] Cristal Muhammad, PharmD 230 [place] [address] 10/18/2024 10:00 AM EDT Clinical Support [facility] MED & PEDS [address] [place] [address] Katherine Casper, RN 505 [place] [address] documented as of this encounter Visit Diagnoses Not on filedocumented in this encounter Care Teams Custodial Operations Manager Relationship Specialty Start Date End Date Joyce Tapia MD 230 [place] [address] PCP - General Family Medicine 06/19/12 documented as of this encounter
--- OUTSIDE RECORDS SUMMARY | 2024-09-11 16:51 | XMS_ITS | Encounter Summary ---
Author Organization [employer] [facility] Address [address] [facility] 7t [place] [address] Care Team Providers Care Physician Support Coordinator Name Role Phone Joyce Tapia MD Primary Care Provider [phone] Reason for Visit * Reason Comments Med Refill Encounter Details Date Type Department Care Team (Late st Contact Info) Description 10/03/2023 Refill [facility] MED & PEDS 505 [place], [place] [phone] Joyce Tapia MD 505 [place] [address] Arthropathy Social History Tobacco Use Types Packs/Day [...] 9:15 AM EDT Office Visit [facility] MED & PEDS 505 [place] [address] Joyce Tapia MD 505 [place] [address] 09/17/2024 9:30 AM EDT Medication Management [facility] MED & PEDS 505 [place] [address] Cristal Muhammad PharmD 230 [place] [address] 10/18/2024 10:00 AM EDT Clinical Support [facility] MED & PEDS 505 [place] [address] Katherine Casper, RN 505 [place] [address] documented as of this encounter Visit Diagnoses Diagnosis Arthropathy Unspecified arthropathy, site unspecified documented in this encounter Care Teams Physician Support Coordinator Relationship Specialty Start Date End Date Joyce Tapia MD 230 [place] [address] PCP - General Family Medicine 06/19/12 documented as of this encounter
--- OUTSIDE RECORDS SUMMARY | 2024-09-11 16:51 | XMS_ITS | Encounter Summary ---
Author Organization [employer] Address 75 [facility] 7t [place] [address] Care Team Providers Care Cancer Spec Name Role Phone Joyce Tapia MD Primary Care Provider [phone] Reason for Visit * Reason Onset Date Comments Med Refill 05/30/2023 Encounter Details Date Type Department Care Team ([facility] st Contact Info) Description 05/30/2023 Telephone [facility] MEDICINE 230 [place], [place] [phone] Joyce Tapia MD [address] [place] [address] Med Refill Social History Tobacco Use Types [...] oxyCODONE (Roxicodone) 5 MG immediate release tablet [facility] [place] - [address] documented in this encounter Plan of Treatment Upcoming Encounters Date Type Department Care Team (Late st Contact Info) Description 09/14/2024 9:15 AM EDT Office Visit [facility] MED & PEDS 505 [place] [address] Joyce Tapia MD 505 [place] [address] 09/17/2024 9:30 AM EDT Medication Management [facility] MED & PEDS 505 [place] [address] Cristal Muhammad PharmD 230 [place] [address] 10/18/2024 10:00 AM EDT Clinical Support [facility] MED & PEDS 505 [place] [address] Katherine Casper, MAKEDA 505 [place] [address] documented as of this encounter Visit Diagnoses Not on filedocumented in this encounter Care Teams Cancer Spec Relationship Specialty Start Date End Date Joyce Tapia MD 230 [place] [address] PCP - General Family Medicine 06/19/12 documented as of this encounter
--- OUTSIDE RECORDS SUMMARY | 2024-09-11 16:51 | XMS_ITS | Encounter Summary ---
Author Organization [employer] [facility] Address 75 [facility] 7t [place] [address] Care Team Providers Care Sodder Name Role Phone Joyce Tapia MD Primary Care Provider [phone] Reason for Visit * Reason Comments Med Refill Encounter Details Date Type Department Care Team (Late st Contact Info) Description 10/24/2023 Refill [facility] MEDICINE 230 [place], [place] [phone] Joyce Tapia MD 505 [place] [address] Status post surgical removal of nail matrix [...] Description 09/14/2024 9:15 AM EDT Office Visit [facility] MED & PEDS 505 [place], [place] [phone] Joyce Tapia MD 505 [place] [address] 09/17/2024 9:30 AM EDT Medication Management [facility] MED & PEDS 505 [place] [address] Cristal Muhammad PharmD 230 [place] [address] 10/18/2024 10:00 AM EDT Clinical Support [facility] MED & PEDS [address] [place] [address] Katherine Casper, RN 505 [place] [address] documented as of this encounter Visit Diagnoses Diagnosis Status post surgical removal of nail matrix of toe of left foot documented in this encounter Care Teams Sodder Relationship Specialty Start Date End Date Joyce Tapia MD 230 [place] [address] PCP - General Family Medicine 06/19/12 documented as of this encounter
--- OUTSIDE RECORDS SUMMARY | 2024-09-11 16:51 | XMS_ITS | Encounter Summary ---
Author Organization [employer] Address 75 [facility] 7t [place] [address] Care Team Providers Care Sole Painter Name Role Phone Joyce Tapia MD Primary Care Provider [phone] Reason for Visit * Reason Onset Date Comments Med Refill 07/12/2024 Encounter Details Date Type Department Care Team (Late st Contact Info) Description 07/12/2024 Refill [facility] MED & PEDS 505 [place], [place] [phone] Joyce Tapia MD 505 [place] [address] Status post surgical removal of nail matrix [...] 9:15 AM EDT Office Visit [facility] MED & PEDS 505 [place] [address] Joyce Tapia MD 505 [place] [address] 09/17/2024 9:30 AM EDT Medication Management [facility] MED & PEDS 505 [place] [address] Cristal Muhammad PharmD 230 [place] [address] 10/18/2024 10:00 AM EDT Clinical Support [facility] MED & PEDS 505 [place] [address] Katherine Casper, MAKEDA 505 [place] [address] documented as of this encounter Visit Diagnoses Diagnosis Status post surgical removal of nail matrix of toe of left foot documented in this encounter Care Teams Sole Painter Relationship Specialty Start Date End Date Joyce Tapia MD 230 [place] [address] PCP - General Family Medicine 06/19/12 documented as of this encounter
--- OUTSIDE RECORDS SUMMARY | 2024-09-11 16:51 | XMS_ITS | Encounter Summary ---
Author Organization [employer] [facility] Address [address] [facility] 7t [place] [address] Care Team Providers Care Corrugator Helper Name Role Phone Joyce Tapia MD Primary Care Provider [phone] Encounter Details Date Type Department Care Team (Late st Contact Info) Description 05/24/2023 Abstract [facility] MEDICINE 230 [place], [place] [phone] Zohra Benavidez Social History Tobacco Use Types [...] Description 09/14/2024 9:15 AM EDT Office Visit [facility] MED & PEDS 505 [place] [address] Joyce Tapia MD 505 [place] [address] 09/17/2024 9:30 AM EDT Medication Management [facility] MED & PEDS 505 [place] [address] Cristal Muhammad, PharmD 230 [place] [address] 10/18/2024 10:00 AM EDT Clinical Support [facility] MED & PEDS 505 [place] [address] Katherine Casper, RN [address] [place] [...] on filedocumented in this encounter Care Teams Corrugator Helper Relationship Specialty Start Date End Date Joyce Tapia MD [address] [place] [address] PCP - General Family Medicine 06/19/12 documented as of this encounter
--- OUTSIDE RECORDS SUMMARY | 2024-09-11 16:51 | XMS_ITS | Encounter Summary ---
Author Organization [employer] Address 75 [facility] 7t [place] [address] Care Team Providers Care Regional Vice President Life Sales Name Role Phone Joyce Tapia MD Primary Care Provider [phone] Reason for Visit * Reason Onset Date Comments Med Refill 08/29/2024 Encounter Details Date Type Department Care Team (Late st Contact Info) Description 08/29/2024 Refill [facility] MED & PEDS [address] [place], [place] [phone] Joyce Tapia MD 505 [place] [address] Status post surgical removal of nail matrix [...] * Telephone Encounter - Alma Naik - 08/29/2024 8:48 AM EST oxycodone documented in this encounter Plan of Treatment Upcoming Encounters Date Type Department Care Team (Late st Contact Info) Description 09/14/2024 9:15 AM EDT Office Visit [facility] MED & PEDS [address] [place] [address] Joyce Tapia MD 505 [place] [address] 09/17/2024 9:30 AM EDT Medication Management [facility] MED & PEDS [address] [place] [address] Cristal Muhammad PharmD 230 [place] [address] 10/18/2024 10:00 AM EDT Clinical Support [facility] MED & PEDS [address] [place] [address] Katherine Casper, MAKEDA 505 [place] [address] documented as of this encounter Visit Diagnoses Diagnosis Status post surgical removal of nail matrix of toe of left foot documented in this encounter Care Teams Regional Vice President Life Sales Relationship Specialty Start Date End Date Joyce Tapia MD 230 [place] [address] PCP - General Family Medicine 06/19/12 documented as of this encounter
--- OUTSIDE RECORDS SUMMARY | 2024-09-11 16:51 | XMS_ITS | Encounter Summary ---
Author Organization [employer] Address 75 [facility] 7t [place] [address] Care Team Providers Care Canvas Cutter Name Role Phone Joyce Tapia MD Primary Care Provider [phone] Reason for Visit * Reason Onset Date Comments Med Refill 08/01/2024 Encounter Details Date Type Department Care Team (Late st Contact Info) Description 08/01/2024 Refill [facility] MEDICINE 230 [place] [address] Emerson Keith MD [address] [place] [address] Status post surgical removal of nail matrix [...] [facility] MED & PEDS 505 [place] [address] Joyce Tapia MD 505 [place] [address] 09/17/2024 9:30 AM EDT Medication Management [facility] MED & PEDS [address] [place] [address] Cristal Muhammad PharmD 230 [place] [address] 10/18/2024 10:00 AM EDT Clinical Support [facility] MED & PEDS [address] [place] [address] Katherine Casper, MAKEDA 505 [place] [address] documented as of this encounter Visit Diagnoses Diagnosis Status post surgical removal of nail matrix of toe of left foot documented in this encounter Care Teams Canvas Cutter Relationship Specialty Start Date End Date Joyce Tapia MD 230 [place] [address] PCP - General Family Medicine 06/19/12 documented as of this encounter
--- OUTSIDE RECORDS SUMMARY | 2024-09-11 16:51 | XMS_ITS | Encounter Summary ---
Author Organization [employer] Address [address] [facility] [address] 7t [place] [address] Care Team Providers Care Eviction Specialist Name Role Phone Joyce Tapia MD Primary Care Provider Reason for Visit * Reason Onset Date Comments Med Refill 02/28/2024 Encounter Details Date Type Department Care Team (Late st Contact Info) Description 02/28/2024 Telephone [facility] MEDICINE 230 [place] [address] Joyce Tapia MD [address] [place], [place] [phone] Med Refill Social History Tobacco Use Types [...] immediate release tablet To be sent to: [facility] [place], [place] - [address] [place] [address] documented in this encounter Plan of Treatment Upcoming Encounters Date Type Department Care Team (Late st Contact Info) Description 09/14/2024 9:15 AM EDT Office Visit [facility] MED & PEDS 505 [place] [address] Joyce Tapia MD 505 [place] [address] 09/17/2024 9:30 AM EDT Medication Management [facility] MED & PEDS 505 [place] [address] Cristal Muhammad, PharmD 230 [place] [address] 10/18/2024 10:00 AM EDT Clinical Support [facility] MED & PEDS 505 [place] [address] Katherine Casper, MAKEDA 505 [place], [place] documented as of this encounter Visit Diagnoses Not on filedocumented in this encounter Care Teams Eviction Specialist Relationship Specialty Start Date End Date Joyce Tapia MD 230 [place] [address] PCP - General Family Medicine 06/19/12 documented as of this encounter
--- OUTSIDE RECORDS SUMMARY | 2024-09-11 16:51 | XMS_ITS | Clinical Summary ---
Author Organization [facility] Address [address] [facility] [address] [place] [address] Care Team Providers Care Smoking Pipe Repairer Name Role Phone Joyce Tapia MD Primary Care Provider [phone] Allergies Active Allergy Reactions Criticality Noted Date [...] and swelling). 30 g 2 024 Active meclizine (Antivert) 25 MG tablet [...] EVERY MORNING 90 capsule 1 024 Active sucralfate (Carafate) 1 g tablet Take 1 tablet (1 g) by mouth before breakfast, before lunch, before evening meal, and at bedtime. 120 tablet 11 025 2025 Active pantoprazole (ProtoNix) 40 MG EC tablet Take 1 tablet by mouth 2 times daily. 025 Active Blood Glucose Monitoring Suppl (FreeStyle Panola Lite) w/Device kit Test blood sugar as directed 1 kit Active glucose blood (FREESTYLE LITE) test strip Test blood sugar every day as directed 100 each 11 025 2025 Active Lancets 33G misc Test blood sugar every day as directed 100 each 11 02/04/2 025 Active Blood Pressure kit Check blood pressure daily 1 kit Active atorvastatin (Lipitor) 40 MG tablet Take 1 tablet (40 mg) by mouth Once per day. 90 tablet 3 Active glucagon (Baqsimi Two Pack) 3 MG/DOSE nasal powder Administer 3 mg into affected nostril(s) 1 (one) time if needed for low blood sugar. 1 each Active sertraline (Zoloft) 100 MG tablet TAKE ONE TABLET EVERY NIGHT AT BEDTIME 30 tablet 6 Active zolpidem (Ambien) 5 MG tablet TAKE ONE TABLET AT BEDTIME NEEDED FOR SLEEP 30 tablet Active varenicline (Chantix) 1 MG tablet Take 1 tablet (1 mg) by mouth 2 times daily. Take with full glass of water. 56 tablet 2 Active lidocaine (Lidoderm) 5 % patchIndication s:Pain Apply 1 patch topically Once per day. Remove & discard patch within 12 hours or as directed by MD. 30 patch 025 2025 Active oxyCODONE (Roxicodone) 5 MG immediate release tabletIndicatio ns:Status post surgical removal of nail matrix of toe of left foot Take 1 tablet (5 mg) by mouth every 6 (six) hours if needed for severe pain. 30 tablet Active Ferrous Sulfate (iron) 325 (65 Fe) MG tablet TAKE ONE TABLET EVERY MORNING 90 tablet 1 Active sertraline (Zoloft) 100 MG tablet TAKE ONE TABLET EVERY NIGHT AT BEDTIME 30 tablet 6 024 2024 Discontinued FeroSul 325 (65 Fe) MG tablet TAKE ONE TABLET EVERY MORNING 90 tablet 1 024 2024 Discontinued lidocaine (Lidoderm) 5 % patchIndication s:Pain Apply 1 patch topically Once per day. Remove & discard patch within 12 hours or as directed by MD. 30 patch 024 2024 Discontinued(R eorder (will not trigger notification to Pharmacy)) zolpidem (Ambien) 5 MG tablet TAKE ONE TABLET AT BEDTIME NEEDED FOR SLEEP 30 tablet 025 2024 Discontinued Varenicline Tartrate, Starter, 0.5 MG X 11 & 1 MG X 42 tablet therapy pack Take 0.5 mg by mouth Once per day for 3 days, THEN 0.5 mg 2 times daily for 4 days, THEN 1 mg 2 times daily for 21 days. Take as directed per package . 53 each 025 2024 Discontinued(O ther) oxyCODONE (Roxicodone) 5 MG immediate release tabletIndicatio [...] community supports PLAN: 1. Follow up with C: Not recommended for follow-up 2. Behavioral Recommendations brianna Nayely will reach out to [facility] [place] and/or [facility] if further supports needed Status post surgical [...] Encounters Date Type Department Care Team Description 09/11/2024 Telephone [facility] [address] [place] [phone] Joyce Tapia MD Med Refill 09/10/2024 Refill [facility] [address] [place] [address] Joyce Tapia MD Status post surgical removal of nail matrix of toe of left foot 09/07/2024 Patient Outreach [facility] [address] [place] [phone] Joyce Tapia MD Pre-visit Planning (SDOH screening completed on 08/30/24) 09/07/2024 Refill [facility] [address] [place] [address] Joyce Tapia MD 09/05/2024 Refill [facility] [address] [place] [address] Joyce Tapia MD Status post surgical removal of nail matrix of toe of left foot 09/05/2024 Refill [facility] [address] [place] [address] Jenny Schmidt MD Pain 09/05/2024 Refill [facility] [address] [place] [address] Joyce Tapia MD Status post surgical removal of nail matrix of toe of left foot 09/03/2024 Telephone [facility] [address] [place] [address] Cristal Muhammad, PharmD 08/30/2024 Patient Outreach [facility] [address] [place] [address] Joyce Tapia MD Pre-visit Planning (SDOH negative, Tobacco screening negative. ) 08/29/2024 Refill [facility] [address] [place] [address] Joyce Tapia MD Status post surgical removal of nail matrix of toe of left foot 08/23/2024 Patient Outreach [facility] [address] [place] [address] Joyce Tapia MD Transition Of Care (Tcm) 08/20/2024 Orders Only GENERIC EXTERNAL DATA DEPARTMENT Provider, Generic External Data 08/17/2024 Refill [facility] [address] [place] [address] Joyce Tapia MD Status post surgical removal of nail matrix of toe of left foot 08/15/2024 Refill [facility] [address] [place] [address] Joyce Tapia MD 08/15/2024 Refill [facility] [address] [place] [address] Joyce Tapia MD Status post surgical removal of nail matrix of toe of left foot 08/15/2024 Refill [facility] [address] [place] [address] Joyce Tapia MD Status post surgical removal of nail matrix of toe of left foot 08/10/2024 Refill [facility] [address] [place] [address] Emerson Keith MD 08/09/2024 10:30 AM EST Telemedicine [facility] [address] [place] [address] Katherine Casper, lamp shades supervisor bilateral low back pain with left-sided sciatica 08/09/2024 Telephone [facility] [address] [place] [address] Katherine Casper, RN 08/09/[address] [address] Joyce Tapia MD Appt 08/09/2024 Travel 08/08/2024 Refill [facility] [address] [place] [address] Joyce Tapia MD Status post surgical removal of nail matrix of toe of left foot 08/07/2024 Travel 08/02/2024 Orders Only [facility] [address] [place] [address] Joyce Tapia MD Type 2 diabetes mellitus without complication, without long-term current use of insulin ([facility]) (Primary Dx) 08/02/2024 Telephone [facility] [address] [place] [address] Joyce Tapia MD Med Refill 08/01/2024 Orders Only GENERIC EXTERNAL DATA DEPARTMENT Provider, Generic External Data 08/01/2024 Refill [facility] [address] [place] [address] Joyce Tapia MD Status post surgical removal of nail matrix of toe of left foot 08/01/2024 Refill [facility] [address] [place] [address] Emerson Keith MD Status post surgical removal of nail matrix of toe of left foot 07/27/2024 Telephone [facility] [address] [place] [address] Joyce Tapia MD Med Refill 07/27/2024 Refill [facility] [address] [place] [address] Emerson Keith MD Status post surgical removal of nail matrix of toe of left foot 07/26/2024 Refill [facility] [address] [place] [address] Joyce Tapia MD Status post surgical removal of nail matrix of toe of left foot 07/25/2024 Telephone [facility] [address] [place] [address] Joyce Tapia MD 07/25/2024 Refill [facility] [address] [place] [address] Emerson Keith MD Status post surgical removal of nail matrix of toe of left foot 07/24/2024 Patient Outreach [facility] [address] [place] [address] Joyce Tapia MD Transition Of Care (Tcm) 07/19/2024 Refill [facility] [address] [place] [address] Joyce Tapia MD 07/19/2024 Refill [facility] [address] [place] [address] Joyce Tapia MD Status post surgical removal of nail matrix of toe of left foot 07/18/2024 Orders Only GENERIC EXTERNAL DATA DEPARTMENT Provider, Generic External Data 07/13/2024 Refill [facility] [address] [place] [address] Joyce Tapia MD 07/13/2024 Refill [facility] [address] [place] [address] Amber Palacio MD Smoker 07/13/2024 Refill [facility] [address] [place] [address] Joyce Tapia MD Status post surgical removal of nail matrix of toe of left foot 07/12/2024 Refill [facility] [address] [place] [address] Joyce Tapia MD Status post surgical removal of nail matrix of toe of left foot 07/09/2024 8:30 AM EST Office Visit [facility] [address] [place] [address] Joyce Tapia MD Gastroesophageal reflux disease without esophagitis (Primary Dx); Type 2 diabetes mellitus without complication, without long-term current use of insulin ([facility]); Rectal bleeding 07/09/2024 Refill [facility] [address] [place] [address] Joyce Tapia MD Status post surgical removal of nail matrix of toe of left foot 07/09/2024 Travel 07/08/2024 Refill [facility] [address] [place] [address] Kassi Johnston FNP Status post surgical removal of nail matrix of toe of left foot 07/02/2024 Refill [facility] [address] [place] [address] Kassi Johnston FNP Status post surgical removal of nail matrix of toe of left foot 07/02/2024 Telephone [facility] [address] [place] [address] Joyce Tapia MD Med Refill 07/01/2024 Refill [facility] [address] [place] [address] Emerson Keith MD Status post surgical removal of nail matrix of toe of left foot 07/01/2024 Refill [facility] [address] [place] [address] Joyce Tapia MD Pain (Primary Dx) 06/25/2024 Refill [facility] [address] [place] [address] Joyce Tapia MD Status post surgical removal of nail matrix of toe of left foot 06/25/2024 Refill [facility] [address] [place] [address] Joyce Tapia MD Status post surgical removal of nail matrix of toe of left foot 06/23/2024 Refill [facility] [address] [place] [address] Joyce Tapia MD Status post surgical removal of nail matrix of toe of left foot 06/18/2024 Refill [facility] [address] [place] [address] Joyce Tapia MD 06/18/2024 Refill [facility] [address] [place] [address] Joyce Tapia MD Status post surgical removal of nail matrix of toe of left foot 06/14/2024 Refill C [facility] [address] [place] [address] Joyce Tapia MD Type 2 diabetes mellitus without complication, without long-term current use of insulin ([facility]) from Last 3 Months Immunizations Name Administration Dates Next Due Influenza injectable quadriv alent IIV4 with preservative 05/01/2019,04/28/2018,04/19/2016,03/28 Influenza injectable quadriv alent preservative free 03/22/2023,04/05/2022,04/02/2020,07/01 Influenza, IIV3, injectable 03/28/2014 Influenza, Split (incl. corrine fied surface antigen) 04/10/2012 Influenza, seasonal, injecta ble, preservative free 06/04/2024 Moderna Covid-19 Vaccine 12+ 10/16/2020,09/19/19 21 Pfizer Covid-19 Vaccine + 08/07/2024 Pneumococcal Conjugate PCV 20 08/07/2024 Pneumococcal [...] 09/14/2024 9:15 AM EDT Office Visit [facility] [address] [place] [address] Joyce Tapia MD [address] [place] [address] 09/17/2024 9:30 AM EDT Medication Management [facility] [address] [place] [address] Cristal Muhammad, PharmD [address] [place] [address] 10/18/2024 10:00 AM EDT Clinical Support [facility] [address] [place] [address] Katherine Casper, MAKEDA [address] [place] [address] Health Maintenance Due Date Last Done Comments CT Colonography 1962 Depression Screening 1962 FIT DNA/Cologuard 1962 FIT 1962 FOBT 1962 HIV Screening 1960 Sigmoidoscopy 1962 Eye Exam 1972 Alcohol/Substance Use Screening 1974 Hepatitis C Screening 1980 Diabetes: Urine Protein Screening 08/20/2022 08/20/2021 Pap Smear 03/31/2024 03/31/2021 Mammogram 05/28/2024 05/28/2023, 08/04, 08/16/2020, Additional history exists Diabetes: Hemoglobin A1C 01/06/2025 025, 01/13/2024, 06/03/2023, Additional history exists Colonoscopy 02/20/2025 02/20/2015 Colorectal Cancer Screening 02/20/2025 Diabetes: Foot Exam 07/09/2025 07/09/2024, 07/09/2024, 07/09/2024, Additional history exists Lipid Panel 07/09/2025 07/09/2024 Tobacco Screening 08/07/2025 08/07/2024 SDOH Screening 08/30/2025 08/30/2024 Cervical Cancer Screening 03/31/2026 HPV/Cotest 03/31/2026 03/31/2021 [...] Procedure Name Priority Date/Time Associated Diagnosis Comments D DIMER HIGH SENSITIVITY Routine 08/20/2024 9:30 PM EST HIGH SENSITIVITY TROPONIN I Routine 08/20/2024 9:30 PM EST XR CHEST 1 VIEW Routine 08/20/2024 8:47 PM EST B TYPE NATRIURETIC PEPTIDE (BNP) Routine 08/20/2024 7:41 PM EST CBC WITH AUTO DIFFERENTIAL Routine 08/20/2024 7:41 PM EST HIGH SENSITIVITY TROPONIN I Routine 08/20/2024 7:41 PM EST MAGNESIUM Routine 08/20/2024 7:41 PM EST BASIC METABOLIC PANEL Routine 08/20/2024 7:41 PM EST HEPATIC FUNCTION PANEL Routine 7:41 PM EST SARS COV2/INFLUENZA A/B AND RSV RNA QL NAAT Routine 08/20/2024 7:41 PM EST CREATININE, SERUM Routine 08/01/2024 10: 49 AM [...] without long-term current use of insulin (CMS/HCC) BI MAMMOGRAM SCREENING TOMOSYNTHESIS BILATERAL Routine 05/28/2023 8:58 AM EST ZZZ HISTORICAL MICROALBUMIN/CREATININ E RATIO, RANDOM URINE Routine 08/20/2021 8:20 AM EST HPV MRNA E6/E7 Routine 03/31/2021 9:06 AM EDT THINPREP PAP Routine 03/31/2021 9:06 AM EDT HM COLONOSCOPY Routine 02/20/2015 from Last 3 Months or Most Recently Relevant to Health Maintenance Results * D Dimer High Sensitivity (08/20/2024 9:30 PM EST) D Dimer High Sensitivity <150 NG/ML [facility] Comment:D-DIMER HS REFERENCE RANGENote: Our assay reports D-Dimer Units (D- DU).The cut-off value for venous thromboembolic (VTE) disease is230 ng/mL. This value has a very high negative predictivevalue when the patient has a low to moderate clinicalprobability of VTE.The upper limit of normal is 243 ng/mL. 08/20/2024 9:30 PM EST 08/20/2024 9:34 PM EST Generic External Data Provider LAB BLOOD ORDERAB LES Final Result Performing Organization Address [facility] de Phone Number [facility] [address] [place] [phone] * High Sensitivity Troponin I (08/20/2024 9:30 PM EST) Only the most recent of2 resultswithin the time period is included. TROPONIN I HIGH SENSITIVITY <2.7 <3.5 - 17.0 ng/L [facility] Comment:The Ceballos high sens itivity Troponin-I results should beused in conjunction with other diagnostic information suchas ECG, clinical observations and information, and patientsymptoms to aid in the diagnosis of MS. 08/20/2024 9:30 PM EST 08/20/2024 9:34 PM EST Generic External Data Provider LAB BLOOD ORDERAB LES Final Result Performing Organization Address [facility] Co de Phone Number [facility] [address] [place] [phone] * XR Chest 1 View (08/20/2024 8:47 PM EST) Anatomical Region Laterality Modality Chest Radiographic Yovana ging 08/20/2024 8:47 PM EST Narrative 08/20/2024 8:49 PM EST ? [facility] [facility] ?[address] ?[place] [address] ?XRay Report ? Signed ? Patient: Grover,Nayely ?MR#: [id number] ?? [id number] ? : 1960 ?Acct:[id number] ? Age/Sex: 63 / F ?ADM Date: 08/20/24 ? Loc: HO.ED ? Attending Dr: ? Ordering Physician: Radha Javier ?? Date of Service: 08/20/24 ?? Procedure(s): XR chest 1V ?? Accession Number(s): [id number] ? cc: Radha Javier; Joyce Tapia MD ? CLINICAL HISTORY: CXR ? 1 view chest x-ray ? Comparison: None ? Findings: ?? No consolidation, pneumothorax, or pleural effusion. ?? Heart size is normal. ?? Degenerative changes include imaged AC joints. ? IMPRESSION: ?? No consolidation. ? This document has been electronically signed by: Alcides Herring MD on ?? 08/20/2024 20:47:34 ? Dictated By: ?Alcides Herring MD ? Signed By: ?<Electronically signed by Alcides Herring MD in OV> ? 08/20/242048 ? DD/ 46 ? TD/TT: 08/20/242046 ? Cardiac Care Unit Nurse: ? Procedure Note Luhchalino, Image - 08/20/[address] [address] XRay Report Signed Patient: Charly Grover#: [id number] : 1960Acct:[id number] Age/Sex: 63 / FADM Date: 08/20/24 Loc: HO.ED Attending Dr: Ordering Physician: Radha Javier Date of Service: 08/20/24 Procedure(s): XR chest 1V Accession Number(s): [id number] cc: Radha Javier; Joyce Tapia MD CLINICAL HISTORY: CXR 1 view chest x-ray Comparison: None Findings: No consolidation, pneumothorax, or pleural effusion. Heart size is normal. Degenerative changes include imaged AC joints. IMPRESSION: No consolidation. This document has been electronically signed by: Alcides Herring MD on 08/20/2024 20:47:34 Dictated By: Alcides Herring MD Signed By: <Electronically signed by Alcides Herring MD in OV> 08/20/242048 DD/ 46 TD/TT: 08/20/242046 Cardiac Care Unit Nurse: [facility] External Provider IMG XR PROCEDURES Edited Result - Final * SARS-CoV-2 RNA, Influenza A/B, and RSV RNA, Ql NAAT (08/20/2024 7:41 PM EST) Influenza A PCR NEGATIVE Negative [facility] Influenza B PCR NEGATIVE Negative [facility] Resp Syncy Virus RNA Qual PCR NEGATIVE Negative [facility] SARS COV2 PCR NEGATIVE Negative [facility] Comment:All test results mus t be correlated with clinical findings.Negative results do not preclude SARS-CoV2, influenza Avirus, influenza B virus and/or RSV infectionand should not be used as the sole basis for treatment orother patient management decisions. Negative results must becombined with clinical observations, patient history, andepidemiological information.This test has not been evaluated for monitoring treatment ofinfection.This test has been authorized by the FDA under an EmergencyUse Authorization (EUA) for use by authorized laboratories.Testing performed on the [employer] GeneXpert utilizingreal-time RT-PCR.All SARS CoV2 and positive influenza A/B results arereported to [facility]. 08/20/2024 7:41 PM EST 08/20/2024 7:44 PM EST Generic External Data Provider LAB MICROBIOLOGY - GENERAL ORDERABLES Final Result [facility] [address] [place] [phone] * (ABNORMAL) CBC auto differential (08/20/2024 7:41 PM EST) White Blood Count 6.8 4.8 - 10.8 X10*3/uL [facility] Red Blood Count 4.18(L) 4.20 - 5.50 X10*6/uL [facility] Hemoglobin 12.4 12.0 - 16.0 g/dl [facility] Hematocrit 36.7(L) 37.0 - 47.0 % [facility] Mean Corpuscular Volume 87.8 80.0 - 98.0 fL [facility] Mean Corpuscular Hemoglobin 29.7 27.0 - 33.0 pg [facility] Mean Corpuscular HGB Conc 33.8 31.0 - 35.0 g/dl [facility] Red Cell Distribution Width 12.5 11.0 - 16.0 % [facility] Platelet Count 156(L) 160 - 400 X10*3/uL [facility] Mean Platelet Volume 10.2 9.4 - 12.3 fL [facility] Neutrophils Percent Auto 80.2(H) 45 - 73 % [facility] Imm Gran Pct Auto 0.1 0.0 - 0.4 % [facility] Lymphocytes Percent Auto 9.1(L) 20 - 40 % [facility] Monocytes Percent Auto 7.5 2 - 11 % [facility] Eosinophils Percent Auto 2.8 0 - 4 % [facility] Basophils Percent Auto 0.3 0 - 2 % [facility] NRBC Pct Auto 0.0 0.0 - 0.2 /100WBC [facility] Neutrophils Absolute Auto 5.5 2.0 - 8.3 x10*3/uL [facility] Imm Gran Abs Auto 0.01 0.00 - 0.03 X10*3/uL [facility] Lymphocytes Absolute Auto 0.6(L) 1.2 - 4.9 X10*3/uL [facility] Monocytes Absolute Auto 0.5 0.1 - 1.2 X10*3/uL [facility] Eosinophils Absolute Auto 0.2 0.0 - 0.4 X10*3/uL [facility] Basophils Absolute Auto 0.0 0.0 - 0.2 X10*3/uL [facility] NRBC Abs Auto 0.000 0.0 - 0.012 X10*3/uL [facility] 08/20/2024 7:41 PM EST 08/20/2024 7:44 PM EST us Generic External Data Provider LAB BLOOD ORDERAB LES Final Result Performing Organization Address [facility] de Phone Number [facility] [address] [place] [phone] * B Type Natriuretic Peptide (BNP) (08/20/2024 7:41 PM EST) [facility] B Type Natriuretic Peptide 34 <100 pg/mL [facility] Comment:For those patients w ho are being treated with Natrecor(nesiritide, recombinant BNP), BNP testing should beperformed at least two hours post treatment in order toensure that only endogenous levels of BNP are detected. 08/20/2024 7:41 PM EST 08/20/2024 7:44 PM EST us Generic External Data Provider LAB BLOOD ORDERAB LES Final Result Performing Organization Address [facility] Co de Phone Number [facility] [address] [place] [phone] * Magnesium (08/20/2024 7:41 PM EST) [facility] Magnesium 1.9 1.6 - 2.6 mg/dL [facility] 08/20/2024 7:41 PM EST 08/20/2024 7:44 PM EST Generic External Data Provider LAB BLOOD ORDERAB LES Final Result Performing Organization Address [facility] de Phone Number [facility] [address] [place] [phone] * Hepatic Function Panel (08/20/2024 7:41 PM EST) Only the most recent of2 resultswithin the time period is included. [facility] Bilirubin, Total 0.4 0.0 - 1.0 mg/dL [facility] Bilirubin, Direct 0.2 0.0 - 0.5 mg/dL [facility] Aspartate Amino Transferase 21 5 - 31 U/L [facility] Alanine Aminotransferase 24 0 - 31 U/L [facility] Total Protein 6.5 6.5 - 8.0 g/dL [facility] Albumin Level 3.7 3.5 - 5.0 g/dL [facility] Alkaline Phosphatase 78 39 - 117 U/L [facility] 08/20/2024 7:41 PM EST 08/20/2024 7:44 PM EST us Generic External Data Provider LAB BLOOD ORDERAB LES Final Result [facility] [address] [place] [phone] * (ABNORMAL) Basic Metabolic Panel (08/20/2024 7:41 PM EST) Only the most recent of2 resultswithin the time period is included. Sodium 138 135 - 145 mmol/L [facility] Potassium 3.7 3.3 - 5.1 mmol/L [facility] Chloride 104 96 - 108 mmol/L [facility] Carbon Dioxide 27 22 - 29 mmol/L [facility] Anion Gap 11(L) 12 - 20 [facility] Urea Nitrogen (BUN) 12 9 - 16 mg/dL [facility] Creatinine, Serum 0.69 0.5 - 1.4 mg/dL [facility] Creatinine Clr Calc Pharmacy 80.2 [facility] Comment:Provided height and weight: 157.48 cm,73.3 kg.eGFR (calculated from the MDRD study equation) and eCrCl(calculated from the Cockcroft-Gault equation) are based ondifferent parameters and may not yield comparable results.If eCrCl result is absurd, please check patient'sheight/weight. Estimated Glomerular Filt Rate >60 [facility] Comment:Chronic Kidney Disea se: Estimated GFR < 60 mL/min/[id number] Kidney Disease: Estimated GFR < 15 mL/min/1.73m2 Glucose 119(H) 60 - 115 mg/dL [facility] Calcium 8.6 8.4 - 10.2 mg/dL [facility] 08/20/2024 7:41 PM EST 08/20/2024 7:44 PM EST us Generic External Data Provider LAB BLOOD ORDERAB LES Final Result Performing Organization Address [facility] Co de Phone Number [facility] [address] [place] [address] [phone] * Creatinine, Serum (08/01/2024 10:49 AM EST) Creatinine, Serum 0.74 0.5 - 1.4 mg/dL [facility] Estimated Glomerular Filt Rate >60 [facility] Comment:Chronic Kidney Disea se: Estimated GFR < 60 mL/min/1.69b8Ldxqsk Kidney Disease: Estimated GFR < 15 mL/min/1.73m2 08/01/2024 10:4 9 AM EST 08/01/2024 10:49 AM EST us Generic External Data Provider LAB BLOOD ORDERAB LES Final Result Performing Organization Address [facility] Co de Phone Number [facility] [address] [place] [address] [phone] * BUN (Blood Urea Nitrogen) (08/01/2024 10:49 AM EST) Urea Nitrogen (BUN) 13 9 - 16 mg/dL [facility] 08/01/2024 10:4 9 AM EST 08/01/2024 10:49 AM EST us Generic External Data Provider LAB BLOOD ORDERAB LES Final Result Performing Organization Address [facility] Co de Phone Number [facility] [address] [place] [address] [phone] * XR Hand 3+ Views Left (07/21/2024 11:57 PM EST) Anatomical Region Laterality Modality Upper Extremities, Hand Left Radiogra phic Imaging 07/21/2024 11:5 7 PM EST Narrative 07/21/2024 11:59 PM EST ? [facility] ?[address] ?[place] [address] ?XRay Report ? Signed ? Patient: Grover,Nayely ?MR#: [id number] ?? 541 ? : 1960 ?Acct:[id number] ? Age/Sex: 63 / F ?ADM Date: 07/21/24 ? Loc: HO.ED ? Attending Dr: ? Ordering Physician: Janel Pitts MD ?? Date of Service: 07/21/24 ?? Procedure(s): XR hand LT min 3V ?? Accession Number(s): [id number] ? cc: Joyce Tapia MD; Janel Pitts [...] ? DD/ 56 ? TD/TT: 07/21/242356 ? Cardiac Care Unit Nurse: ? Procedure Note Donno, Image - 07/22/2024 [place] [address] XRay Report Signed Patient: Nayely GroverMR#: [id number] 541 : 1960Acct:[id number] Age/Sex: 63 / FADM Date: 07/21/24 Loc: HO.ED Attending Dr: Ordering Physician: Janel Pitts MD Date of Service: 07/21/24 Procedure(s): XR hand LT min 3V Accession Number(s): [id number] cc: Joyce Tapia MD; Janel Pitts MD [...] in OV> 07/21/242357 DD/ 56 TD/TT: 07/21/242356 Cardiac Care Unit Nurse: [facility] External Provider IMG XR PROCEDURES Edited Result - Final * Hematoxylin and Eosin Stain (07/18/2024 8:13 AM EST) 07/18/2024 8:13 AM EST 07/18/2024 9:01 AM EST [facility] - 07/20/2024 9:46 AM EST ----- ------- Name: Nayely Grover ?Age/Sex: 63/F ? : 1960 Unit#: [id number] ?? Attend Dr: Donald Pa MD ?Re07/18/24 ?Status: DEP SDC ? Location: HO.SSS ?Disch: ? ----- ------- SPEC : [id number] ?RECD: 07/18/24 ? STATUS: ??SOUT ? REQ NUM: [id number] ? JOSE: 07/18/24 ? SUBM DR: Donald [...] Grover ?Age/Sex: 63/F ? : 1960 Unit#: [id number] ?? Attend Dr: Donald Pa MD ?Re07/18/24 ?Status: DEP SDC ? Location: HO.SSS ?Disch: ? ----- ------- SPEC : [id number] ?RECD: 07/18/24 ? STATUS: ??SOUT ? REQ NUM: [id number] ? JOSE: 07/18/24 ? SUBM DR: Donald Pa MD ? ENTERED: ??07/18/24 ?SP TYPE: Surgical ? OTHR DR: Joyce Tapia MD ? ORDERED: ??HE Stain/9, Gross Micro L4/3, IHC, Special st. 2, H. pylori, AB/PAS ? Copies To: ?? Joyce Tapia MD ?? [facility] ?? [address] ?? [place] [address] ?? [phone] ?? Donald Pa MD ?? [facility] ?? [address] ?? [place] [address] ?? [phone] ----- ------- Signed (signature on file) Ayan Romero MD 07/20/24 0946 ? ----- ------- ? END OF REPORT ? Generic External Data Provider LAB BLOOD ORDERAB LES Final Result Performing Organization Address [facility] Co de Phone Number [facility] [address] [place] [address] [phone] * (ABNORMAL) Glucose, Whole Blood (07/18/2024 7:34 AM EST) Glucose, Whole Blood 141(H) 60 - 115 mg/dL [facility] Comment:METER #: [id number] 07/18/2024 7:34 AM EST 07/18/2024 7:38 AM EST [employer] External Data Provider LAB BLOOD ORDERAB LES Final Result Performing Organization Address [facility] de Phone Number [facility] [address] [place] [phone] * (ABNORMAL) Hemoglobin A1c (07/09/2024 8:59 AM EST) Hemoglobin A1c 6.5(H) <6.0 % [facility] Comment:Hemoglobin A1C Refer ence Range Adults: 4.8 - 6.0 % Non diabetic: < 6.0 % Goal: < 7.0 %Additional Action Suggested: > 8.0 %Note: Hemoglobin A1c results are invalid for patients with abnormal amounts of HbF. Blood transfusions may impact the HbA1c concentration in the patient sample. Estimated Average Glucose 140 mg/dL [facility] Comment:eAG = Estimated ave rage glucose which is %A1C expressed asaverage glucose, using the formula of the X5T-VcamzkvRygqsvi Glucose study (ADAG), Diabetes Care, Vol.31,#8,Feb. 2007 Blood Venous blood specimen / Unknown 07/09/2024 8:59 AM EST 07/09/2024 2:20 PM EST Joyce Tapia MD LAB BLOOD ORDERABLES Final Resul t Performing Organization Address [facility] Co de Phone Number [facility] [address] [place] [address] [phone] * (ABNORMAL) Lipid Panel, Standard (07/09/2024 8:59 AM EST) Triglycerides 86 <150 mg/dL [facility] Comment:Desirable Triglyceri de: less than 150 mg/dLBorderline High Triglyceride 150-199 mg/dLHigh Triglyceride: 200-499 mg/dLVery High Triglyceride: greater than or equal to 5OO mg/dL Cholesterol 181 <200 mg/dL [facility] Comment:Desirable Cholestero l: less than 200 mg/dLBorderline High Cholesterol: 200-239 mg/dLHigh Cholesterol: greater than 239 mg/dL LDL Cholesterol Calculated 100(H) <100 mg/dL [facility] Comment:Desirable LDL: less than 100 mg/dLNear Optimal/Above Optimal LDL: 110- 129 mg/dLBorderline High LDL: 130-159 mg/dLHigh LDL: 160-189 mg/dLVery High LDL: greater than or equal to 190 mg/dL HDL Cholesterol 64 >40 mg/dL [facility] Comment:Desirable HDL: great er than 40 mg/dL Note: This HDL assay may give artificially low results in patients with liver disease. Blood Venous blood specimen / Unknown 07/09/2024 8:59 AM EST 07/09/2024 2:20 PM EST Joyce Tapia MD LAB BLOOD ORDERABLES Final Resul t Performing Organization Address [facility] Co de Phone Number [facility] [address] [place] [address] [phone] * POCT Glucose (07/09/2024 8:41 AM EST) Glucose Blood, POC 118 60 - 200 mg/dL QC Media Lot # [id number] Lot# Expiration Date , Blood Capillary blood specimen / Unknown 07/09/2024 8:41 AM EST us Joyce Tapia MD POINT OF CARE TEST ENTER/EDIT OR DERABLES Final Result * BI Mammogram Screening Tomosynthesis Bilateral (05/28/2023 8:58 AM EST) Anatomical Region Laterality Modality Breast Bilateral Mammography 05/28/2023 8:58 AM EST Narrative 06/03/2023 8:41 AM EST ? [facility] ? [address] ?[place] [address] ? Mammography Report ? Signed ? Patient: Grover,Nayely ?MR#: [id number] ?? 541 ? : 1960 ?Acct:[id number] ? Age/Sex: 62 / F ?ADM Date: 05/28/ ? Loc: HO.MAMMO ? Attending Dr: Joyce S Willie MD ? Ordering Physician: Willie,Joyce S MD ?Results: 1Negati ?? ve ? Date of Service: 05/28/ ?Follow Up: 1 Year From Orig ?? inal Mammogram ? Procedure(s): MM tomosynthesis screening BI ?? Accession Number(s): [id number] ? cc: Joyce Tapia MD ? EXAMINATION: [...] MD in OV> ? 06/03/23836 ? DD/ 7 ? TD/TT: ? Cardiac Care Unit Nurse: ? Procedure Note Javed, Michelle - 06/03/2023 [facility] [address] [place] [address] [place] [address] Mammography Report Signed Patient: Nayely GroverMR#: [id number] 541 : 1960Acct:[id number] Age/Sex: 62 / FADM Date: 05/28/23 Loc: HO.MAMMO Attending Dr: Joyce Tapia MD Ordering Physician: Joyce Tapiaesults: 1Negati ve Date of Service: 05/28/23Follow Up: 1 Year From Orig inal Mammogram Procedure(s): MM tomosynthesis screening BI Accession Number(s): [id number] cc: Joyce Tapia MD EXAMINATION: MM SCREENING [...] in OV> 06/03/23 0837 DD/ 0858 TD/TT: Cardiac Care Unit Nurse: Joyce Tapia MD IMG BI PROCEDURES Final Result * MICROALBUMIN/CREATININE RATIO, RANDOM URINE (08/20/2021 8:20 AM EST) Creatinine Urine 109.98 mg/dL [facility] Microalbum/Creati nine Ratio Ur TNP ug/mg cr [facility] Comment: Unable to calculate albumin/creatinine ratio due to low microalbumin or creatinine result. Microalbumin Urine <5.0 mg/L [facility] 08/20/2021 8:20 AM EST Historical Provider HISTORICAL/NON ORDERABLE LABS Final Result [facility] [address] * THINPREP PAP (03/31/2021 9:06 AM [...] historic and ?? current clinical information. ?? Gifted Program Teacher : SEE COMMENT [facility] Comment: JXM, CT(ASCP) CT screening location: [address] ??[id number] Interpretation/R esult: Negative for intraepithelial lesion or [...] Noa MARINO LAB PATHOLOGY ORDERABLES Final Result [facility] [address] * HPV mRNA E6/E7 (03/31/2021 9:06 AM EDT) HPV nRNA E6/E7 Not Detected Not Detected [facility] Comment: Methodology: Grade Teacher-Mediated Amplification This assay detects E6/E7 viral messenger RNA (mRNA) from 14 high-risk HPV types (16,18,31,33,35,39,45,51,52,56,58,59,66,68). ? The analytical performance characteristics of this assay have been determined by [employer]. The modifications have not been cleared or approved by the FDA. This assay has been validated pursuant to the CLIA regulations and is used for clinical purposes. ?? For additional information, please refer to http://education.[employer].Tensorcom/faq/XGB313e1 (This link if provided for information/ educational purposes only.) 03/31/2021 9:06 AM EDT Noa De Santiago CNM LAB BLOOD ORDERABLES Patt l Result [facility] * Colonoscopy (02/20/2015) [facility] Colonoscopy Normal Normal Narrative Zohra Benavidez - 02/20/2015 Repeat in 10 year Historical Provider MD HEALTH MAINTENANCE Final Result from Last 3 Months or Most Recently Relevant to Health Maintenance Insurance [facility] [employer] Care Teams Smoking Pipe Repairer Relationship Specialty Start Date End Date Joyce Tapia MD [address] [place] [address] PCP - General Family Medicine 06/19/12
--- OUTSIDE RECORDS SUMMARY | 2024-09-11 16:51 | XMS_ITS | Encounter Summary ---
Author Organization [employer] Address [address] [facility] 7t [place] [address] Care Team Providers Care Single Needle Tufting Machine Operator Name Role Phone Joyce Tapia MD Primary Care Provider [phone] Reason for Visit * Reason Onset Date Comments Referral 03/09/2023 Encounter Details Date Type Department Care Team ([facility] st Contact Info) Description 03/09/2023 Telephone [facility] MED & PEDS [address] [place], [place] [phone] Joyce Tapia MD [address] [place] [address] Referral Social History Tobacco Use Types Packs/Day [...] wait that long. Please contact pt at [phone] documented in this encounter Plan of Treatment Upcoming Encounters Date Type Department Care Team (Late st Contact Info) Description 09/14/2024 9:15 AM EDT Office Visit [facility] MED & PEDS [address] [place] [address] Joyce Tapia MD [address] [place] [address] 09/17/2024 9:30 AM EDT Medication Management [facility] MED & PEDS [address] [place] [address] Cristal Muhammad, BobD [address] [place] [address] 10/18/2024 10:00 AM EDT Clinical Support [facility] MED & PEDS [address] [place] [address] Katherine Casper, RN [address] [place] [address] documented as of this encounter Visit Diagnoses Not on filedocumented in this encounter Care Teams Single Needle Tufting Machine Operator Relationship Specialty Start Date End Date Joyce Tapia MD [address] [place] [address] PCP - General Family Medicine 06/19/12 documented as of this encounter
--- OUTSIDE RECORDS SUMMARY | 2024-09-11 16:51 | XMS_ITS ---
Author Organization [employer] Address [address] [place] [address] 7 [place] [address] Care Team Providers Care Utility Teller Name Role Phone Joyce Tapia MD Primary Care Provider [phone] LAST SCOURER Status:Enrolled (Active) Start date:10/22/2022 Enrollment date:10/22/2022 Case Team Name Relationship Phone Katherine Casper RN Registered Nurse(Responsible S taff) Continued Care and Services Coordination
--- OUTSIDE RECORDS SUMMARY | 2024-09-11 16:51 | XMS_ITS | Encounter Summary ---
Author Organization [employer] Address [address] 7t [place] [address] Care Team Providers Care Customer Counter Associate Name Role Phone Joyce Tapia MD Primary Care Provider [phone] Reason for Visit * Reason Onset Date Comments Med Refill 08/15/2024 Encounter Details Date Type Department Care Team (Late st Contact Info) Description 08/15/2024 Refill [facility] MEDICINE [address] [place] [address] Joyce Tapia MD [address] [place] [address] Status post surgical removal of nail matrix [...] immediate release tablet To be sent to: [facility]/pharmacy #[id number] [place] - [address] [facility] documented in this encounter Plan of Treatment Upcoming Encounters Date Type Department Care Team (Late st Contact Info) Description 09/14/2024 9:15 AM EDT Office Visit [facility] MED & PEDS [address] [place] [address] Joyce Tapia MD 505 [place] [address] 09/17/2024 9:30 AM EDT Medication Management [facility] MED & PEDS [address] [place] [address] Cristal Muhammad, PharmD 230 [place] [address] 10/18/2024 10:00 AM EDT Clinical Support [facility] MED & PEDS [address] [place] [address] Katherine Casper, MAKEDA [address] [place], [place] documented as of this encounter Visit Diagnoses Diagnosis Status post surgical removal of nail matrix of toe of left foot documented in this encounter Care Teams Customer Counter Associate Relationship Specialty Start Date End Date Joyce Tapia MD [address] [place] [address] PCP - General Family Medicine 06/19/12 documented as of this encounter
--- OUTSIDE RECORDS SUMMARY | 2024-09-11 16:51 | XMS_ITS | Encounter Summary ---
Author Organization [employer] [facility] Address [address] [facility] 7t [place] [address] Care Team Providers Care Baseboard Heating Installer Name Role Phone Joyce Tapia MD Primary Care Provider Reason for Visit * Reason Comments Med Refill Encounter Details Date Type Department Care Team (Late st Contact Info) Description 07/29/2023 Refill [facility] MEDICINE [address] [place], [place] [phone] Joyce Tapia MD [address] [place] [address] Status post surgical removal of nail matrix [...] Description 09/14/2024 9:15 AM EDT Office Visit [facility] CHC MED & PEDS [address] [place], [place] [phone] Joyce Tapia MD [address] [place] [address] 09/17/2024 9:30 AM EDT Medication Management [facility] MED & PEDS [address] [place] [address] Cristal Muhammad PharmD [address] [place] [address] 10/18/2024 10:00 AM EDT Clinical Support [facility] MED & PEDS [address] [place] [address] Katherine Casper, RN [address] [place] [address] documented as of this encounter Visit Diagnoses Diagnosis Status post surgical removal of nail matrix of toe of left foot documented in this encounter Care Teams Baseboard Heating Installer Relationship Specialty Start Date End Date Joyce Tapia MD [address] [place] [address] PCP - General Family Medicine 06/19/12 documented as of this encounter
--- OUTSIDE RECORDS SUMMARY | 2024-09-11 16:51 | XMS_ITS | Encounter Summary ---
Author Organization [employer] Address [address] [facility] 7t [place] [address] Care Team Providers Care Mold Maker Apprentice Name Role Phone Joyce Tapia MD Primary Care Provider [phone] Reason for Visit * Reason Onset Date Comments Med Refill 05/28/2024 Encounter Details Date Type Department Care Team ([facility] st Contact Info) Description 05/28/2024 Refill [facility] CHC MED & PEDS [address] [place], [place] [phone] Joyce Tapia MD [address] [place] [address] Status post surgical removal of nail matrix [...] Description 09/14/2024 9:15 AM EDT Office Visit [facility] MED & PEDS [address] [place] [address] Joyce Tapia MD [address] [place] [address] 09/17/2024 9:30 AM EDT Medication Management [facility] MED & PEDS [address] [place] [address] Cristal Muhammad PharmD [address] [place] [address] 10/18/2024 10:00 AM EDT Clinical Support [facility] MED & PEDS [address] [place] [address] Katherine Casper, MAKEDA 505 [place] [address] documented as of this encounter Visit Diagnoses Diagnosis Status post surgical removal of nail matrix of toe of left foot documented in this encounter Care Teams Mold Maker Apprentice Relationship Specialty Start Date End Date Joyce Tapia MD [address] [place] [address] PCP - General Family Medicine 06/19/12 documented as of this encounter
--- OUTSIDE RECORDS SUMMARY | 2024-09-11 16:51 | XMS_ITS | Encounter Summary ---
Author Organization [employer] Address [address] [facility] [address] 7t [place] [address] Care Team Providers Care Bronc Breaker Name Role Phone Joyce Tapia MD Primary Care Provider [phone] Reason for Visit * Reason Onset Date Comments Med Refill 06/05/2024 Encounter Details Date Type Department Care Team (Late st Contact Info) Description 06/05/2024 Refill [facility] MEDICINE [address] [place] [address] Joyce Tapia MD [address] [place] [address] Status post surgical removal of nail matrix [...] Description 09/14/2024 9:15 AM EDT Office Visit [facility] MED & PEDS 505 [place] [address] Joyce Tapia MD [address] [place] [address] 09/17/2024 9:30 AM EDT Medication Management [facility] MED & PEDS [address] [place] [address] Cristal Muhammad PharmD [address] [place] [address] 10/18/2024 10:00 AM EDT Clinical Support [facility] MED & PEDS [address] [place] [address] Katherine Casper, MAKEDA [address] [place] [address] documented as of this encounter Visit Diagnoses Diagnosis Status post surgical removal of nail matrix of toe of left foot documented in this encounter Care Teams Bronc Breaker Relationship Specialty Start Date End Date Joyce Tapia MD [address] [place] [address] PCP - General Family Medicine 06/19/12 documented as of this encounter
--- OUTSIDE RECORDS SUMMARY | 2024-09-11 16:51 | XMS_ITS | Encounter Summary ---
Author Organization [employer] [facility] Address [address] [facility] 7t [place] [address] Care Team Providers Care Psychometric Examiner Name Role Phone Joyce Tapia MD Primary Care Provider [phone] Reason for Visit * Reason Comments Med Refill Encounter Details Date Type Department Care Team (Late st Contact Info) Description 06/07/2023 Refill [facility] MED & PEDS [address] [place], [place] [phone] Ev Lewis, ANP [address] [place] [address] Status post surgical removal of nail matrix [...] [facility] [address] [place], [place] [phone] Joyce Tapia MD [address] [place] [address] 09/17/2024 9:30 AM EDT Medication Management [facility] MED & PEDS [address] [place] [address] Cristal Muhammad PharmD [address] [place] [address] 10/18/2024 10:00 AM EDT Clinical Support [facility] MED & PEDS [address] [place] [address] Katherine Casper, RN [address] [place] [address] documented as of this encounter Visit Diagnoses Diagnosis Status post surgical removal of nail matrix of toe of left foot documented in this encounter Care Teams Psychometric Examiner Relationship Specialty Start Date End Date Joyce Tapia MD [address] [place] [address] PCP - General Family Medicine 06/19/12 documented as of this encounter
--- OUTSIDE RECORDS SUMMARY | 2024-09-11 16:51 | XMS_ITS | Encounter Summary ---
Author Organization [employer] Address [address] [place] [address] 7t [place] [address] Care Team Providers Care Coke Handling Supervisor Name Role Phone Jocye Tapia MD Primary Care Provider [phone] Reason for Visit * Reason Comments Med Refill Encounter Details Date Type Department Care Team (Late Contact Info) Description 10/11/2023 Refill [facility] MEDICINE [address] [place], [place] [phone] Ayden Orellana MD 505 [place] [address] Status post surgical removal of nail matrix [...] Description 09/14/2024 9:15 AM EDT Office Visit [facility] CHC MED & PEDS [address] [place], [place] [phone] Joyce Tapia MD [address] [place] [address] 09/17/2024 9:30 AM EDT Medication Management [facility] MED & PEDS [address] [place] [address] Cristal Muhammad PharmD [address] [place] [address] 10/18/2024 10:00 AM EDT Clinical Support [facility] MED & PEDS [address] [place] [address] Katherine Casper, RN [address] [place] [address] documented as of this encounter Visit Diagnoses Diagnosis Status post surgical removal of nail matrix of toe of left foot documented in this encounter Care Teams Coke Handling Supervisor Relationship Specialty Start Date End Date Joyce Tapia MD [address] [place] [address] PCP - General Family Medicine 06/19/12 documented as of this encounter
--- OUTSIDE RECORDS SUMMARY | 2024-09-11 16:51 | XMS_ITS | Encounter Summary ---
Author Organization [facility] Address [address] [facility] 7t [place] [address] Care Team Providers Care Polymerization Supervisor Name Role Phone Joyce Tapia MD Primary Care Provider [phone] Reason for Visit * Reason Comments Med Refill Encounter Details Date Type Department Care Team (Late st Contact Info) Description 06/06/2023 Refill [facility] MED & PEDS [address] [place], [place] [phone] Ev Lewis, ANP [address] [place] [address] Status post surgical removal of nail matrix [...] [facility] [address] [place], [place] [phone] Joyce Tapia MD 505 [place] [address] 09/17/2024 9:30 AM EDT Medication Management [facility] MED & PEDS [address] [place] [address] Cristal Muhammad PharmD [address] [place] [address] 10/18/2024 10:00 AM EDT Clinical Support [facility] MED & PEDS [address] [place] [address] Katherine Casper, RN [address] [place] [address] documented as of this encounter Visit Diagnoses Diagnosis Status post surgical removal of nail matrix of toe of left foot documented in this encounter Care Teams Polymerization Supervisor Relationship Specialty Start Date End Date Joyce Tapia MD [address] [place] [address] PCP - General Family Medicine 06/19/12 documented as of this encounter
--- OUTSIDE RECORDS SUMMARY | 2024-09-11 16:51 | XMS_ITS | Encounter Summary ---
Author Organization [employer] Address [address] [facility] 7t [place] [address] Care Team Providers Care Artificial Plastic Eye Maker Name Role Phone Joyce Tapia MD Primary Care Provider [phone] Reason for Visit * Reason Onset Date Comments Med Refill 04/19/2023 Encounter Details Date Type Department Care Team (Late st Contact Info) Description 04/19/2023 Telephone [facility] MED & PEDS [address] [place] [address] Joyce Tapia MD 505 [place] [address] Med Refill Social History Tobacco Use Types [...] Description 09/14/2024 9:15 AM EDT Office Visit [facility] MED & PEDS [address] [place] [address] Joyce Tapia MD [address] [place], [place] 09/17/2024 9:30 AM EDT Medication Management [facility] MED & PEDS [address] [place], [place] [phone] Cristal Muhammad, BobD [address] [place] [address] 10/18/2024 10:00 AM EDT Clinical Support [facility] MED & PEDS [address] [place] [address] Katherine Casper, RN 505 [place] [address] documented as of this encounter Visit Diagnoses Not on filedocumented in this encounter Care Teams Artificial Plastic Eye Maker Relationship Specialty Start Date End Date Joyce Tapia MD [address] [place] [address] PCP - General Family Medicine 06/19/12 documented as of this encounter
--- OUTSIDE RECORDS SUMMARY | 2024-09-11 16:51 | XMS_ITS | Encounter Summary ---
Author Organization [employer] [facility] Address 75 [facility] 7t [place] [address] Care Team Providers Care Stock Checker Name Role Phone Joyce Tapia MD Primary Care Provider [phone] Reason for Visit * Reason Comments Med Refill Encounter Details Date Type Department Care Team (Late Contact Info) Description 06/12/2023 Refill [facility] MED & PEDS 505 [place], [place] [phone] Christy Ray MD 505 [place] [address] Muscle spasm Social History Tobacco Use Types [...] Description 09/14/2024 9:15 AM EDT Office Visit [facility] MED & PEDS [address] [place], [place] [phone] Joyce Tapia MD [address] [place] [address] 09/17/2024 9:30 AM EDT Medication Management [facility] [address] [place] [address] Cristal Muhammad PharmD 230 [place] [address] 10/18/2024 10:00 AM EDT Clinical Support [facility] [address] [place] [address] Katherine Casper, RN 505 [place] [address] documented as of this encounter Visit Diagnoses Diagnosis Muscle spasm Spasm of muscle documented in this encounter Care Teams Stock Checker Relationship Specialty Start Date End Date Joyce Tapia MD [address] [place] [address] PCP - General Family Medicine 06/19/12 documented as of this encounter
--- OUTSIDE RECORDS SUMMARY | 2024-09-11 16:51 | XMS_ITS | Encounter Summary ---
Author Organization [employer] Address [address] [facility] [address] 7t [place] [address] Care Team Providers Care Process Mechanic Name Role Phone Joyce Tapia MD Primary Care Provider [phone] Reason for Visit * Reason Onset Date Comments Med Refill 05/08/2024 Encounter Details Date Type Department Care Team (Late st Contact Info) Description 05/08/2024 Refill [facility] [address] [place] [address] Joyce Tapia MD [address] [place] [address] Muscle spasm Social History Tobacco Use Types [...] Description 09/14/2024 9:15 AM EDT Office Visit [facility] MED & PEDS 505 [place] [address] Joyce Tapia MD 505 [place] [address] 09/17/2024 9:30 AM EDT Medication Management [facility] MED & PEDS [address] [place] [address] Cristal Muhammad, PharmD 230 [place] [address] 10/18/2024 10:00 AM EDT Clinical Support [facility] MED & PEDS [address] [place] [address] Katherine Casper, RN 505 [place] [address] documented as of this encounter Visit Diagnoses Diagnosis Muscle spasm Spasm of muscle documented in this encounter Care Teams Process Mechanic Relationship Specialty Start Date End Date Joyce Tapia MD [address] [place] [address] PCP - General Family Medicine 06/19/12 documented as of this encounter
--- OUTSIDE RECORDS SUMMARY | 2024-09-11 16:51 | XMS_ITS | Encounter Summary ---
Author Organization [employer] Address [address] [facility] [address] 7t [place] [address] Care Team Providers Care Geodetic Survey Director Name Role Phone Joyce Tapia MD Primary Care Provider [phone] Encounter Details Date Type Department Care Team (Late st Contact Info) Description 08/20/2024 Orders Only GENERIC EXTERNAL DATA DEPARTMENT [...] [facility] 505 [place] [address] Joyce Tapia MD 505 [place] [address] 09/17/2024 9:30 AM EDT Medication Management [facility] 505 [place] [address] Cristal Muhammad, PharmD 230 [place] [address] 10/18/2024 10:00 AM EDT Clinical Support [facility] 505 [place] [address] Katherine Casper, MAKEDA 505 [place] [address] documented as of this encounter Procedures Procedure Name Priority Date/Time Associated Diagnosis Comments D DIMER HIGH SENSITIVITY Routine 08/20/2024 9:30 PM EST HIGH SENSITIVITY TROPONIN I Routine 08/20/2024 9:30 PM EST XR CHEST 1 VIEW Routine 08/20/2024 8:47 PM EST HIGH SENSITIVITY TROPONIN I Routine 08/20/2024 7:41 PM EST SARS COV2/INFLUENZA A/B AND RSV RNA QL NAAT Routine 08/20/2024 7:41 PM EST CBC WITH AUTO DIFFERENTIAL Routine 08/20/2024 7:41 PM EST B TYPE NATRIURETIC PEPTIDE (BNP) Routine 08/20/2024 7:41 PM EST MAGNESIUM Routine 08/20/2024 7:41 PM EST HEPATIC FUNCTION PANEL Routine 08/20/2024 7:41 PM EST BASIC METABOLIC PANEL Routine 08/20/2024 7:41 PM EST documented in this encounter Results * D Dimer High Sensitivity (08/20/2024 9:30 PM EST) [facility] D Dimer High Sensitivity <150 NG/ML [facility] Comment:D-DIMER HS REFERENCE RANGENote: Our [...] ORDERAB LES Final Result Performing Organization Address [facility] Co de Phone Number [facility] [address] [place] [phone] * High Sensitivity Troponin I (08/20/2024 9:30 PM EST) [facility] TROPONIN I HIGH SENSITIVITY <2.7 <3.5 - 17.0 ng/L [facility] Comment:The Ceballos high sens itivity Troponin-I results should beused in conjunction with other diagnostic information suchas ECG, clinical observations and information, and patientsymptoms to aid in the diagnosis of IL. 08/20/2024 9:30 PM EST 08/20/2024 9:34 PM EST us Generic External Data Provider LAB BLOOD ORDERAB LES Final Result Performing Organization Address City/[facility]/ZIP Co de Phone Number [facility] [address] [place] [address] [phone] * XR Chest 1 View (08/20/2024 8:47 PM EST) Anatomical Region Laterality Modality Chest Radiographic Yovana ging 08/20/2024 8:47 PM EST Narrative 08/20/2024 8:49 PM EST ? [facility] ?[address] ?[place] [address] ?XRay Report ? Signed ? Patient: Grover,Nayely ?MR#: [id number] ?? [id number] ? : 1960 ?Acct:[id number] ? Age/Sex: 63 / F ?ADM Date: 08/20/24 ? Loc: HO.ED ? Attending Dr: ? Ordering Physician: Radha Javier ?? Date of Service: 08/20/24 ?? Procedure(s): XR chest 1V ?? Accession Number(s): [id number] ? cc: Radha Javier; Joyce Tapia MD [...] ? DD/ 46 ? TD/TT: 08/20/242046 ? Insulation Technician: ? Procedure Note Javed, Michelle - 08/20/[address] [address] XRay Report Signed Patient: Charly Grover#: [id number] : 1960Acct:[id number] Age/Sex: 63 / FADM Date: 08/20/24 Loc: HO.ED Attending Dr: Ordering Physician: Radha Javier Date of Service: 08/20/24 Procedure(s): XR chest 1V Accession Number(s): [id number] cc: Radha Javier; Joyce Tapia MD CLINICAL [...] in OV> 08/20/242048 DD/ 46 TD/TT: 08/20/242046 Insulation Technician: [facility] External Provider IMG XR PROCEDURES Edited Result - Final * SARS-CoV-2 RNA, Influenza A/B, and RSV RNA, Ql NAAT (08/20/2024 7:41 PM EST) Influenza A PCR NEGATIVE Negative [facility] Influenza B PCR NEGATIVE Negative [facility] Resp Syncy Virus RNA Qual PCR NEGATIVE Negative [facility] SARS COV2 PCR NEGATIVE Negative [facility] Comment:All test results mus t [...] use by authorized laboratories.Testing performed on the [employer] GeneXpert utilizingreal-time RT-PCR.All SARS CoV2 and positive influenza A/B results arereported to [facility]. 08/20/2024 7:41 PM EST 08/20/2024 7:44 PM EST Generic External Data Provider LAB MICROBIOLOGY - GENERAL ORDERABLES Final Result [facility] [address] [place] [address] [phone] * B Type Natriuretic Peptide (BNP) (08/20/2024 7:41 PM EST) [facility] B Type Natriuretic Peptide 34 <100 pg/mL [facility] Comment:For those patients w ho are being treated with Natrecor(nesiritide, recombinant BNP), BNP testing should beperformed at least two hours post treatment in order toensure that only endogenous levels of BNP are detected. 08/20/2024 7:41 PM EST 08/20/2024 7:44 PM EST us Generic External Data Provider LAB BLOOD ORDERAB LES Final Result [facility] [address] [place] [address] [phone] * (ABNORMAL) CBC auto differential (08/20/2024 7:41 PM EST) [facility] White Blood Count 6.8 4.8 - 10.8 X10*3/uL [facility] Red Blood Count 4.18(L) 4.20 - 5.50 X10*6/uL [facility] Hemoglobin 12.4 12.0 - 16.0 g/dl [facility] Hematocrit 36.7(L) 37.0 - 47.0 % [facility] Mean Corpuscular Volume 87.8 80.0 - 98.0 fL [facility] Mean Corpuscular Hemoglobin 29.7 27.0 - 33.0 pg [facility] Mean Corpuscular HGB Conc 33.8 31.0 - 35.0 g/dl [facility] Red Cell Distribution Width 12.5 11.0 - 16.0 % [facility] Platelet Count 156(L) 160 - 400 X10*3/uL [facility] Mean Platelet Volume 10.2 9.4 - 12.3 fL [facility] Neutrophils Percent Auto 80.2(H) 45 - 73 % [facility] Imm Gran Pct Auto 0.1 0.0 - 0.4 % [facility] Lymphocytes Percent Auto 9.1(L) 20 - 40 % [facility] Monocytes Percent Auto 7.5 2 - 11 % [facility] Eosinophils Percent Auto 2.8 0 - 4 % [facility] Basophils Percent Auto 0.3 0 - 2 % [facility] NRBC Pct Auto 0.0 0.0 - 0.2 /100WBC [facility] Neutrophils Absolute Auto 5.5 2.0 - 8.3 x10*3/uL [facility] Imm Gran Abs Auto 0.01 0.00 - 0.03 X10*3/uL [facility] Lymphocytes Absolute Auto 0.6(L) 1.2 - 4.9 X10*3/uL [facility] Monocytes Absolute Auto 0.5 0.1 - 1.2 X10*3/uL [facility] Eosinophils Absolute Auto 0.2 0.0 - 0.4 X10*3/uL [facility] Basophils Absolute Auto 0.0 0.0 - 0.2 X10*3/uL [facility] NRBC Abs Auto 0.000 0.0 - 0.012 X10*3/uL [facility] 08/20/2024 7:41 PM EST 08/20/2024 7:44 PM EST us Generic External Data Provider LAB BLOOD ORDERAB LES Final Result [facility] [address] [place] [phone] * High Sensitivity Troponin I (08/20/2024 7:41 PM EST) TROPONIN I HIGH SENSITIVITY <2.7 <3.5 - 17.0 ng/L [facility] Comment:The Ceballos high sens itivity Troponin-I results should beused in conjunction with other diagnostic information suchas ECG, clinical observations and information, and patientsymptoms to aid in the diagnosis of IL. 08/20/2024 7:41 PM EST 08/20/2024 7:44 PM EST us Generic External Data Provider LAB BLOOD ORDERAB LES Final Result Performing Organization Address City/[facility] Co de Phone Number [facility] [address] [place] [phone] * Magnesium (08/20/2024 7:41 PM EST) Magnesium 1.9 1.6 - 2.6 mg/dL [facility] 08/20/2024 7:41 PM EST 08/20/2024 7:44 PM EST Generic External Data Provider LAB BLOOD ORDERAB LES Final Result Performing Organization Address [facility] de Phone Number [facility] [address] [place] [address] [phone] * (ABNORMAL) Basic Metabolic Panel (08/20/2024 7:41 PM EST) Sodium 138 135 - 145 mmol/L [facility] Potassium 3.7 3.3 - 5.1 mmol/L [facility] Chloride 104 96 - 108 mmol/L [facility] Carbon Dioxide 27 22 - 29 mmol/L [facility] Anion Gap 11(L) 12 - 20 [facility] Urea Nitrogen (BUN) 12 9 - 16 mg/dL [facility] Creatinine, Serum 0.69 0.5 - 1.4 mg/dL [facility] Creatinine Clr Calc Pharmacy 80.2 [facility] Comment:Provided height and weight: 157.48 cm,73.3 kg.eGFR (calculated from the MDRD study equation) and eCrCl(calculated from the Cockcroft-Gault equation) are based ondifferent parameters and may not yield comparable results.If eCrCl result is absurd, please check patient'sheight/weight. Estimated Glomerular Filt Rate >60 [facility] Comment:Chronic Kidney Disea se: Estimated GFR < 60 mL/min/[id number] Kidney Disease: Estimated GFR < 15 mL/min/1.73m2 Glucose 119(H) 60 - 115 mg/dL [facility] Calcium 8.6 8.4 - 10.2 mg/dL [facility] 08/20/2024 7:41 PM EST 08/20/2024 7:44 PM EST Generic External Data Provider LAB BLOOD ORDERAB LES Final Result Performing Organization Address [facility] Co de Phone Number [facility] [address] [place] [phone] [phone] * Hepatic Function Panel (08/20/2024 7:41 PM EST) Bilirubin, Total 0.4 0.0 - 1.0 mg/dL [facility] Bilirubin, Direct 0.2 0.0 - 0.5 mg/dL [facility] Aspartate Amino Transferase 21 5 - 31 U/L [facility] Alanine Aminotransferase 24 0 - 31 U/L [facility] Total Protein 6.5 6.5 - 8.0 g/dL [facility] Albumin Level 3.7 3.5 - 5.0 g/dL [facility] Alkaline Phosphatase 78 39 - 117 U/L [facility] 08/20/2024 7:41 PM EST 08/20/2024 7:44 PM EST us Generic External Data Provider LAB BLOOD ORDERAB LES Final Result Performing Organization Address [facility] de Phone Number [facility] [address] [place] [address] [phone] documented in this encounter Visit Diagnoses Not on filedocumented in this encounter Care Teams Geodetic Survey Director Relationship Specialty Start Date End Date Joyce Tapia MD [address] [place] [address] PCP - General Family Medicine 06/19/12 documented as of this encounter
--- OUTSIDE RECORDS SUMMARY | 2024-09-11 16:51 | XMS_ITS | Encounter Summary ---
Author Organization [facility] Address [address] [facility] 7t [place] [address] Care Team Providers Care Wharf Helper Name Role Phone Joyce Tapia MD Primary Care Provider [phone] Reason for Visit * Reason Comments Med Refill Encounter Details Date Type Department Care Team (Late Contact Info) Description 10/25/2022 Refill [facility] MED & PEDS [address] [place], [place] [phone] Jenny Schmidt MD [address] [place], [place] [phone] Status post surgical removal of nail matrix [...] Department Care Team (Late Contact Info) Description 09/14/2024 9:15 AM EDT Office Visit [facility] MED & PEDS [address] [place] [address] Joyce Tapia MD [address] [place] [address] 09/17/2024 9:30 AM EDT Medication Management [facility] MED & PEDS [address] [place] [address] Cristal Muhammad PharmD [address] [place] [address] 10/18/2024 10:00 AM EDT Clinical Support [facility] MED & PEDS [address] [place] [address] Katherine Casper RN 505 [place] [address] documented as of this encounter Visit Diagnoses Diagnosis Status post surgical removal of nail matrix of toe of left foot documented in this encounter Care Teams Wharf Helper Relationship Specialty Start Date End Date Joyce Tapia MD [address] [place] [address] PCP - General Family Medicine 06/19/12 documented as of this encounter
--- OUTSIDE RECORDS SUMMARY | 2024-09-11 16:51 | XMS_ITS | Encounter Summary ---
Author Organization [employer] Address [address] [facility] 7t [place] [address] Care Team Providers Care Mortgage Manager Name Role Phone Joyce Tapia MD Primary Care Provider [phone] Reason for Visit * Reason Onset Date Comments Med Refill 08/15/2024 Encounter Details Date Type Department Care Team (Late st Contact Info) Description 08/15/2024 Refill [facility] MED & PEDS [address] [place], [place] [phone] Joyce Tapia MD [address] [place] [address] Status post surgical removal of nail matrix [...] 9:15 AM EDT Office Visit [facility] MED & PEDS [address] [place] [address] Joyce Tapia MD [address] [place] [address] 09/17/2024 9:30 AM EDT Medication Management [facility] MED & PEDS [address] [place] [address] Cristal Muhammad PharmD [address] [place] [address] 10/18/2024 10:00 AM EDT Clinical Support [facility] MED & PEDS [address] [place] [address] Katherine Casper, MAKEDA [address] [place] [address] documented as of this encounter Visit Diagnoses Diagnosis Status post surgical removal of nail matrix of toe of left foot documented in this encounter Care Teams Mortgage Manager Relationship Specialty Start Date End Date Joyce Tapia MD [address] [place] [address] PCP - General Family Medicine 06/19/12 documented as of this encounter
--- OUTSIDE RECORDS SUMMARY | 2024-09-11 16:51 | XMS_ITS | Encounter Summary ---
Author Organization [employer] Address [address] [facility] 7t [place] [address] Care Team Providers Care Footwear Factory Worker Name Role Phone Joyce Tapia MD Primary Care Provider [phone] Reason for Visit * Reason Comments Transition Of Care (Tcm) Encounter Details Date Type Department Care Team ([facility] st Contact Info) Description 08/23/2024 Patient Outreach [facility] MED & PEDS [address] [place], [place] [phone] Joyce Tapia MD 505 [place], [place] [phone] Transition Of Care (Tcm) Social History Tobacco [...] as of this encounter Progress Notes * Velia Harrison RN - 08/23/2024 12:57 PM EST Transition of Care Note Nayely Grover is going through a recent transition of care. * Lucita Aguirre RN - 08/23/2024 12:57 PM EST Transition of Care Note Nayely is going through a recent transition of care. Hospital Discharges and Admission for [facility] Type of Visit: Emergency Department Date of Admission/Visit: 08/20/24 Date of Discharge: 08/20/24 [facility] [facility] Diagnosis: pressure in chest and L jaw x30 mins Disposition: Discharged Home Follow-Up Actions Follow-Up Needed: None/self-monitoring Follow-Up Outcome: Spoke to Patient Initial Contact Date: 08/27/2024 Patient has upcoming appointment with PCP, was discharged on home care as patient had chest wall pain but no troublesome signs. The full discharge summary is available as a Scanned Document. Recent Visits Date Type Provider Dept 07/09/24 Office Visit Joyce Tapia MD [facility] Chc Med & Peds 06/04/24 Office Visit Joyce Tapia MD [facility] Med & Peds 03/13/24 Office Visit Ayden Orellana MD [facility] Med & Peds 02/28/24 Office Visit Ayden Orellana MD [facility] Med & Peds 01/13/24 Office Visit Joyce Tapia MD [facility] Med & Peds 12/02/23 Office Visit Amber Jacinto MD [facility] Walk-In Center 10/24/23 Office Visit Jenny Schmidt MD [facility] Med & Peds 06/22/23 Office Visit Joyce Tapia MD [facility] Med & Peds 06/08/23 Office Visit Juan Montanez MD [facility] Walk-In [place] 06/06/23 Office Visit Ayden Orellana MD [facility] Med & Peds Showing recent visits within past 540 days with a meds authorizing provider and meeting all other requirements Future Appointments Date Type Provider Dept 09/06/24 Appointment Joyce Tapia MD [facility] Med & Peds 09/17/24 Appointment Cristal Muhammad PharmD [facility] Med & Peds Showing future appointments within next 150 days with a meds authorizing provider and meeting all other requirements documented in this encounter Plan of Treatment Upcoming Encounters Date Type Department Care Team (Late st Contact Info) Description 09/14/2024 9:15 AM EDT Office Visit [facility] MED & PEDS [address] [place] [address] Joyce Tapia MD [address] [place] [address] 09/17/2024 9:30 AM EDT Medication Management [facility] MED & PEDS [address] [place] [address] Cristal Muhammad PharmD [address] [place] [address] 10/18/2024 10:00 AM EDT Clinical Support [facility] MED & PEDS [address] [place] [address] Katherine Casper, MAKEDA 505 [place] [address] documented as of this encounter Visit Diagnoses Not on filedocumented in this encounter Care Teams Footwear Factory Worker Relationship Specialty Start Date End Date Joyce Tapia MD [address] [place] [address] PCP - General Family Medicine 06/19/12 documented as of this encounter
--- OUTSIDE RECORDS SUMMARY | 2024-09-11 16:51 | XMS_ITS | Encounter Summary ---
Author Organization [employer] Address [address] [facility] [address] [place] [address] Care Team Providers Care Parts Assembler Name Role Phone Joyce Tapia MD Primary Care Provider [phone] Reason for Visit * Reason Onset Date Comments Med Refill 05/21/2024 Encounter Details Date Type Department Care Team ([facility] st Contact Info) Description 05/21/2024 Refill [facility] MED & PEDS [address] [place], [place] [phone] Joyce Tapia MD [address] [place] [address] Social History Tobacco Use Types Packs/Day Years [...] 9:15 AM EDT Office Visit [facility] MED & PEDS [address] [place] [address] Joyce Tapia MD [address] [place] [address] 09/17/2024 9:30 AM EDT Medication Management [facility] MED & PEDS [address] [place] [address] Cristal Muhammad, PharmD [address] [place] [address] 10/18/2024 10:00 AM EDT Clinical Support [facility] MED & PEDS [address] [place] [address] Katherine Casper, RN [address] [place] [address] documented as of this encounter Visit Diagnoses Not on filedocumented in this encounter Care Teams Parts Assembler Relationship Specialty Start Date End Date Joyce Tapia MD [address] [place] [address] PCP - General Family Medicine 06/19/12 documented as of this encounter
--- OUTSIDE RECORDS SUMMARY | 2024-09-11 16:51 | XMS_ITS | Encounter Summary ---
Author Organization [employer] Address [address] 7t [place] [address] Care Team Providers Care Die Maintenance Name Role Phone Joyce Tapia MD Primary Care Provider [phone] Reason for Visit * Reason Comments Med Refill Encounter Details Date Type Department Care Team ([facility] st Contact Info) Description 08/15/2024 Refill [facility] MED & PEDS [address] [place], [place] [phone] Joyce Tapia MD [address] [place] [address] Social History Tobacco Use Types Packs/Day Years [...] Description 09/14/2024 9:15 AM EDT Office Visit [facility] MED & PEDS [address] [place] [address] Joyce Tapia MD [address] [place] [address] 09/17/2024 9:30 AM EDT Medication Management [facility] MED & PEDS [address] [place] [address] Cristal Muhammad, PharmD [address] [place] [address] 10/18/2024 10:00 AM EDT Clinical Support [facility] MED & PEDS [address] [place] [address] Katherine Casper, RN 505 [place] [address] documented as of this encounter Visit Diagnoses Not on filedocumented in this encounter Care Teams Die Maintenance Relationship Specialty Start Date End Date Joyce Tapia MD [address] [place] [address] PCP - General Family Medicine 06/19/12 documented as of this encounter
--- OUTSIDE RECORDS SUMMARY | 2024-09-11 16:51 | XMS_ITS | Encounter Summary ---
Author Organization [employer] Address [address] [facility] 7t [place] [address] Care Team Providers Care Edger Tailer Name Role Phone Joyce Tapia MD Primary Care Provider [phone] Reason for Visit * Reason Comments Pre-visit Planning SDOH negative, Tobac co screening negative. Encounter Details Date Type Department Care Team ([facility] Contact Info) Description 08/30/2024 Patient Outreach [facility] MED & PEDS [address] [place], [place] [phone] Joyce Tapia MD [address] [place], [place] [phone] Pre-visit Planning (SDOH negative, Tobacco screening negative. ) Social History Tobacco Use Types Packs/Day Years [...] as of this encounter Progress Notes * Ingris Mason - 08/30/2024 8:57 AM EST CC Ingris Yi placed successful outbound call to patient for pre-visit planning. Patient name and confirmed. Patient confirms appt date and time, and has transportation arrangements. Biggest concern for appointment at this time is patient constantly having fevers and feels weak. Patient was seen as an ED at [facility] for chest pains. CC scanned ED visit notes for provider. documented in this encounter Plan of Treatment Upcoming Encounters Date Type Department Care Team ([facility] st Contact Info) Description 09/14/2024 9:15 AM EDT Office Visit [facility] MED & PEDS [address] [place] [address] Joyce Tapia MD 505 [place] [address] 09/17/2024 9:30 AM EDT Medication Management [facility] MED & PEDS [address] [place] [address] Cristal Muhammad, BobD [address] [place] [address] 10/18/2024 10:00 AM EDT Clinical Support [facility] MED & PEDS [address] [place] [address] Katherine Casper, MAKEDA [address] [place] [address] documented as of this encounter Visit Diagnoses Not on filedocumented in this encounter Care Teams Edger Tailer Relationship Specialty Start Date End Date Joyce Tapia MD [address] [place] [address] PCP - General Family Medicine 06/19/12 documented as of this encounter
--- OUTSIDE RECORDS SUMMARY | 2024-09-11 16:51 | XMS_ITS | Encounter Summary ---
Author Organization [employer] Address [address] [facility] 7t [place] [address] Care Team Providers Care Bridge Opener Name Role Phone Joyce Tapia MD Primary Care Provider [phone] Reason for Visit * Reason Onset Date Comments Med Refill 06/28/2023 Encounter Details Date Type Department Care Team ([facility] st Contact Info) Description 06/28/2023 Telephone [facility] MEDICINE [address] [place], [place] [phone] Joyce Tapia MD [address] [place] [address] Med Refill Social History Tobacco Use Types [...] immediate release tablet To be sent to: [facility] [place] - [address] [facility] documented in this encounter Plan of Treatment Upcoming Encounters Date Type Department Care Team (Late st Contact Info) Description 09/14/2024 9:15 AM EDT Office Visit [facility] MED & PEDS [address] [place] [address] Joyce Tapia MD [address] [place] [address] 09/17/2024 9:30 AM EDT Medication Management [facility] MED & PEDS [address] [place] [address] Cristal Muhammad PharmD [address] [place] [address] 10/18/2024 10:00 AM EDT Clinical Support [facility] MED & PEDS [address] [place] [address] Katherine Casper, MAKEDA 505 [place] [address] documented as of this encounter Visit Diagnoses Not on filedocumented in this encounter Care Teams Bridge Opener Relationship Specialty Start Date End Date Joyce Tapia MD [address] [place] [address] PCP - General Family Medicine 06/19/12 documented as of this encounter
--- OUTSIDE RECORDS SUMMARY | 2024-09-11 16:51 | XMS_ITS | Encounter Summary ---
Author Organization [facility] Address [address] [facility] 7t [place] [address] Care Team Providers Care Deputy Director Of Public Works Name Role Phone Joyce Tapia MD Primary Care Provider [phone] Encounter Details Date Type Department Care Team (Latest Contact Info) Description 03/21/2019 Abstract [facility] CONVERSIONS Dental, Provider, DDS Social History [...] [facility] MED & PEDS [address] [place] [address] Joyce Tapia MD 505 [place] [address] 09/17/2024 9:30 AM EDT Medication Management [facility] MED [facility] PEDS [address] [place] [address] Cristal Muhammad, PharmD 230 [place] [address] 10/18/2024 10:00 AM EDT Clinical Support [facility] MED & PEDS [address] [place] [address] Katherine Casper, MAKEDA 505 [place] [address] documented as of this encounter Visit Diagnoses Not on filedocumented in this encounter Care Teams Deputy Director Of Public Works Relationship Specialty Start Date End Date Joyce Taipa MD [address] [place] [address] PCP - General Family Medicine 06/19/12 documented as of this encounter
--- OUTSIDE RECORDS SUMMARY | 2024-09-11 16:51 | XMS_ITS | Encounter Summary ---
Author Organization [employer] Address [address] 7t [place] [address] Care Team Providers Care Top Steep Tender Name Role Phone Joyce Tapia MD Primary Care Provider [phone] Reason for Visit * Reason Onset Date Comments Appt 08/09/2024 Encounter Details Date Type Department Care Team ([facility] st Contact Info) Description 08/09/2024 Telephone [facility] MEDICINE [address] [place], [place] [phone] Joyce Tapia MD [address] [place], [place] [phone] Appt Social History Tobacco Use Types Packs/Day [...] can be changed for a phone visit. [phone] documented in this encounter Plan of Treatment Upcoming Encounters Date Type Department Care Team (Late st Contact Info) Description 09/14/2024 9:15 AM EDT Office Visit [facility] MED & PEDS [address] [place] [address] Joyce Tapia MD [address] [place] [address] 09/17/2024 9:30 AM EDT Medication Management [facility] MED & PEDS [address] [place] [address] Cristal Muhammad, PharmD 230 [place] [address] 10/18/2024 10:00 AM EDT Clinical Support [facility] MED & PEDS [address] [place] [address] Katherine Casper, MAKEDA 505 [place] [address] documented as of this encounter Visit Diagnoses Not on filedocumented in this encounter Care Teams Top Steep Tender Relationship Specialty Start Date End Date Joyce Tapia MD [address] [place] [address] PCP - General Family Medicine 06/19/12 documented as of this encounter
--- OUTSIDE RECORDS SUMMARY | 2024-09-11 16:52 | XMS_ITS | Encounter Summary ---
Author Organization [employer] Address [address] [facility] 7t [place] [address] Care Team Providers Care Charge Nurse Name Role Phone Joyce Tapia MD Primary Care Provider [phone] Reason for Visit * Reason Onset Date Comments Med Refill 04/05/2024 Encounter Details Date Type Department Care Team ([facility] st Contact Info) Description 04/05/2024 Refill [facility] MED & PEDS [address] [place], [place] [phone] Joyce Tapia MD [address] [place] [address] Status post surgical removal of nail matrix [...] [facility] [address] [place] [address] Joyce Tapia MD [address] [place] [address] 09/17/2024 9:30 AM EDT Medication Management [facility] MED [facility]EDS [address] [place] [address] Cristal Muhammad PharmD [address] [place] [address] 10/18/2024 10:00 AM EDT Clinical Support [facility] MED [facility]EDS 505 [place] [address] Katherine Casper, MAKEDA 505 [place] [address] documented as of this encounter Visit Diagnoses Diagnosis Status post surgical removal of nail matrix of toe of left foot documented in this encounter Care Teams Charge Nurse Relationship Specialty Start Date End Date Joyce Tapia MD [address] [place] [address] PCP - General Family Medicine 06/19/12 documented as of this encounter
--- OUTSIDE RECORDS SUMMARY | 2024-09-11 16:52 | XMS_ITS | Encounter Summary ---
Author Organization [employer] Address [address] 7[address] [place] [address] Care Team Providers Care Certified Industrial Hygienist Name Role Phone Joyce Tapia MD Primary Care Provider [phone] Reason for Visit * Reason Onset Date Comments Med Refill 06/25/2024 Encounter Details Date Type Department Care Team (Late st Contact Info) Description 06/25/2024 Refill [facility] MEDICINE [address] [place] [address] Joyce Tapia MD [address] [place] [address] Status post surgical removal of nail matrix [...] Description 09/14/2024 9:15 AM EDT Office Visit [facility] MED & PEDS [address] [place] [address] Joyce Tapia MD 505 [place] [address] 09/17/2024 9:30 AM EDT Medication Management [facility] MED [facility] PED[facility] [address] [place] [address] Cristal Muhammad PharmD [address] [place] [address] 10/18/2024 10:00 AM EDT Clinical Support [facility] MED [facility] PED[facility] [address] [place] [address] Katherine Casper, MAKEDA 505 [place] [address] documented as of this encounter Visit Diagnoses Diagnosis Status post surgical removal of nail matrix of toe of left foot documented in this encounter Care Teams Certified Industrial Hygienist Relationship Specialty Start Date End Date Joyce Tapia MD [address] [place] [address] PCP - General Family Medicine 06/19/12 documented as of this encounter
== END 2024-09-11 13:52 | disposition home or self-care (01) ==
LOC: HO.CT 13:51
PROVIDERS: PCP Student in an Organized Health Care Education/Training Program; Visit Provider Internal Medicine Gastroenterology
DX: R10.33 Periumbilical pain (principal); R10.9 Unspecified abdominal pain; Z98.84 Bariatric surgery status
CPT/HCPCS: 74177; Q9967

== ENCOUNTER → 2024-09-11 13:54 | Outpatient (BNV) | payer OTHER, SELFPAY | PROVIDERS: PCP Student in an Organized Health Care Education/Training Program; Visit Provider Radiology Diagnostic Radiology | DX: R10.9 Unspecified abdominal pain (principal) | CPT/HCPCS: 74177 ==

== ENCOUNTER 2024-09-19 10:11 | Outpatient (AMB) | payer OTHER, SELFPAY ==
[2024-09-19 10:42] VITALS: BMI 29.4
--- NOTE | 2024-09-19 10:42 | A.OFFVIS_ITS ---
Vital Signs 09/19/24 10:42 Height 5 ft 2 in Weight 161 lb BMI 29.4 Intake Visit Reasons: OV-Left index finger trigger finger inj 08/01/24 Intake Note: Nayely is a 63 year old right hand dominant female presents today for a follow up visit of her left index finger trigger finger and left hand Dupuytren. Patient received a left index finger trigger injection at her last visit on 08/01/24 and reports injection did not help and would like to move forward with surgery. hx of DM. A1C- 6. Checked last Tuesday with PCP. Allergies prochlorperazine [From Compazine] Allergy (Severe, Verified 09/19/24 10:48) Seizure Penicillins Allergy (Intermediate, Verified 09/19/24 10:48) HIVES sulfamethoxazole [From BACTRIM] Allergy (Intermediate, Verified 09/19/24 10:48) BLISTERS- DELGADO - NERVE ENDINGS IN HAND/ERYTHEMA MULTIFORM trimethoprim [From BACTRIM] Allergy (Intermediate, Verified 09/19/24 10:48) BLISTERS- DELGADO - NERVE ENDINGS IN HAND/ERYTHEMA MULTIFORM latex [Latex] Allergy (Mild, Verified 09/19/24 10:48) RASH transparent dressing [Tegaderm] Adverse Reaction (Severe, Verified 09/19/24 10:48) Redness of Skin theophylline Adverse Reaction (Intermediate, Verified 09/19/24 10:48) TACHYCARDIA HPI HPI OV-Left index finger trigger finger inj 08/01/24: Details: Nayely is a 63 year old right hand dominant woman who returns to discuss her left index trigger finger, S/P injection on 08/01/24. She says the injection was not helpful and she continues to have painful locking & catching of her left index finger. She would like to discuss alternative treatment options She also complains of numbness, tingling, and weakness in her index finger. She complains of generalized weakness in her hands and says she has difficulty with lifting heavy objects. She has hx of a repeat carpal tunnel release done by me 11/16/21. Previous left hand surgeries: Left Carpal tunnel release in 1984 Left repeat Carpal tunnel release with Dr. Bautista on 11/16/21 Left Cubital tunnel release from 1984 Left repeat Cubital tunnel release, with Dr. Bautista DOS: 04/15/22 Left middle finger & ring finger trigger release on 12/09/20 Left middle finger & ring finger ulnar slip FDS tenotomy on 01/13/21 Left dorsal wrist ganglion aspiration by Dr. Bautista on 06/03/22 Previous right hand surgeries: Right carpal tunnel release in 1994 Right repeat carpal tunnel release with Dr. Bautista on 10/14/22 Right trigger thumb release on 09/08/23 [facility] Medical History Abscess Abdominal pain Infection of skin due to methicillin resistant Staphylococcus aureus (MRSA) Numbness of right hand COVID-19 Sebaceous cyst Cubital tunnel syndrome on left Contusion of right ankle Numbness and tingling in left hand Left hand pain Stiffness of left hand joint Emesis Overweight (BMI 25.0-29.9) Borderline diabetes Dyslipidemia Non-toxic multinodular goiter Diabetes type 2, controlled History of restless legs syndrome Anxiety Depression High cholesterol Asthma DVT (deep venous thrombosis) GERD (gastroesophageal reflux disease) Anastomotic ulcer Surgical History Hx of colonoscopy H/O removal of cyst (02/03/23) History of removal of cyst (07/28/22) Hx of cholecystectomy History of surgery History of surgery on left wrist Hx of elbow surgery History of excision of epidermal inclusion cyst (03/23/22) Hx of excision of epidermal inclusion cyst (12/25/21) History of excision of mass (10/26/21) S/P trigger finger release History of tooth extraction Hx of hand surgery Hx of esophagogastroduodenoscopy S/P gastric bypass History of hysterectomy Family History Mother Diabetes mellitus CHF (congestive heart failure) Kidney failure Cervical cancer Brother No problems noted. Brother No problems noted. 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 No evidence of cord or contractures seen today Psych Appearance: grossly normal Affect: normal affect Attitude: cooperative Assessment & Plan Assessment & Plan (1) Trigger finger, left index finger: Code(s): M65.322 - Trigger finger, left index finger Category: Medical (2) Dupuytren's disease of palm of left hand: Code(s): M72.0 - Palmar fascial fibromatosis [Dupuytren] Category: Medical (3) Diabetes type 2, controlled: Code(s): E11.9 - Type 2 diabetes mellitus without complications Category: Medical Plan Assessment & Plan: 1. Left index finger trigger finger, S/P injection Date of injection: 08/01/24 She continues to have locking and catching following her injection She would like to proceed with surgery The risks and benefits of operative treatment were discussed with the patient and the patient wishes to proceed with surgery. These risks include, but are not limited to risk of damage to blood vessels, nerves, tendons, infection, recurrence, incomplete relief of preoperative symptoms, persistent pain, possible need for further surgery and the risks associated with regional blocks and anesthesia. The plan is to take the patient to the operating room sometime in the next few weeks for the following procedures: 1. Left index finger trigger release, under local All of the preoperative paperwork including the consent was reviewed today. All the patient's questions were answered. The patient understands that they will be contacted by our director outcomes soon to schedule this procedure She denies blood thinners, asthma, heart, lung, kidney issues She is a Diabewtic, she says her most recent HgA1c was ~6.0% on 09/11/24 2. Left hand Dupuytrens disease Nodule in line with the middle finger No evidence of cord or contractures No treatment indicated at this time Please see my previous notes as well as the HPI for a list of additional diagnoses and previous surgeries as needed. Scribed for Jessy Bautista MD by Alcides Felix, medical dosimetrist, on 09/19/24 at 11:20 AM, EST. Coding Level of Care Code Est Pt Level 4 (15829) Diagnoses Trigger finger, left index finger M65.322 Dupuytren's disease of palm of left hand M72.0 Diabetes type 2, controlled E11.9
== END 2024-09-19 11:26 | disposition home or self-care (01) ==
LOC: HO.HOS 10:11
PROVIDERS: PCP Student in an Organized Health Care Education/Training Program; Visit Provider Orthopaedic Surgery
DX: M65.322 Trigger finger, left index finger (principal); M72.0 Palmar fascial fibromatosis [Dupuytren]; E11.9 Type 2 diabetes mellitus without complications
CPT/HCPCS: 99214

== ENCOUNTER → 2024-09-19 10:11 | Outpatient (BNVA) | payer OTHER, SELFPAY | PROVIDERS: PCP Student in an Organized Health Care Education/Training Program; Visit Provider Orthopaedic Surgery | DX: M65.322 Trigger finger, left index finger (principal); M72.0 Palmar fascial fibromatosis [Dupuytren]; E11.9 Type 2 diabetes mellitus without complications | CPT/HCPCS: 99212 ==

== ENCOUNTER 2024-09-25 15:44 | Outpatient (REF) | payer OTHER, SELFPAY ==
[2024-09-25 18:31] LABS: Cholesterol 119 mg/dL (<200); HDL Cholesterol 61 mg/dL (>40); LDL Cholesterol Calculated 47 mg/dL (<100); Triglycerides 56 mg/dL (<150)
[2024-09-25 18:49] LABS: Creatinine Urine 83.95 mg/dL; Microalbumin Urine < 5.0 mg/L
== END 2024-09-25 15:45 | disposition home or self-care (01) ==
LOC: HO.CHCLDS 15:44
PROVIDERS: Visit Provider Student in an Organized Health Care Education/Training Program
DX: E11.9 Type 2 diabetes mellitus without complications (principal)
CPT/HCPCS: 36415; 80061; 82570

== ENCOUNTER 2024-10-01 10:47 | Day surgery (SDC) | payer OTHER, SELFPAY ==
[2024-10-01 11:59] VITALS: BP 101/62; PULSE 76; RESP 18; TEMP 36.4; O2SAT 98; BMI 28.2
--- NOTE | 2024-10-01 13:45 | MHC.SHP ---
Pre-Procedural Eval Section A - 24 Hr Update-Section A only Date of Service: 10/01/24 The patient is an INPATIENT: No Changes since office visit: No Cold of Flu in the past 2 weeks, No New Medical Problems, No Changes in Medication and No Patient answered all questions The patient has been examined within 24 hours of the surgical procedure. The History & Physical has been completed within 30 days and I have reviewed it.: Yes Section B - Complete if H&P > 30 days Chief Complaint: Trigger finger, left index finger Allergies: Allergies Allergy/AdvReac Type Severity Reaction Status Date / Time prochlorperazine Allergy Severe Seizure Verified 09/19/24 10:48 [From Compazine] Penicillins Allergy Intermediate HIVES Verified 09/19/24 10:48 sulfamethoxazole Allergy Intermediate BLISTERS- Verified 09/19/24 10:48 [From BACTRIM] DELGADO - NERVE ENDINGS IN HAND/ERYTHEMA MULTIFORM trimethoprim [From BACTRIM] Allergy Intermediate BLISTERS- Verified 09/19/24 10:48 DELGADO - NERVE ENDINGS IN HAND/ERYTHEMA MULTIFORM latex [Latex] Allergy Mild RASH Verified 09/19/24 10:48 transparent dressing AdvReac Severe Redness of Verified 09/19/24 10:48 [Tegaderm] Skin theophylline AdvReac Intermediate TACHYCARDIA Verified 09/19/24 10:48 Plan Diagnosis/Plan: Unchanged I have reviewed the history and physical and performed a pertinent physical examination on my patient. No changes have occurred unless specified. Time Spent With Patient Time: Total time managing care of this patient today ____ minutes.
--- NOTE | 2024-10-01 14:17 | P.OP_ITS ---
Operative Note Operative Note Date of Service: 10/01/24 Narrative: Operative Note Preop diagnosis: 1. Left index finger Trigger finger Postop diagnosis: 1. Left index finger Trigger finger Procedure: 1. Left index finger A1 palmira release Surgeon: Jessy Bautista MD Fixture Repairer Fabricator: None Anesthesia: local block using 1% lidocaine with epinephrine Findings: No locking or catching after A1 palmira release EBL: Less than 5 mL Tourniquet time: None Specimens: None Complications: None Disposition: Brought to recovery room in stable condition Plan: Follow-up for 10-14 days for wound check and suture removal Indications: The patient is 63 years old, with a left index finger trigger finger that has been unresponsive to nonoperative management. The risks and benefits of operative treatment including but not limited to risk of damage to blood vessels, nerves, tendons, infection, persistent pain, persistent symptoms, recurrence or possible need for additional surgery were discussed with the patient and the patient wishes to proceed with surgery. Procedure: Once consent was obtained a local block was performed in the preop area using a combination of 1% lidocaine with epinephrine. The patient was then brought back to the operating suite and placed on the operative table in supine position. The left upper extremity was prepped and draped in a standard surgical fashion. Once assured that we had a good block, a 1.5 cm oblique incision was made centered over the A1 palmira of the left index finger . The incision was made through the skin to the subcutaneous tissues using a #15 blade. Careful dissection was made down to the level of the A1 palmira using tenotomy scissors, with care being taken to protect the nearby neurovascular structures. A longitudinal incision was made in the A1 palmira 1st using a #15 blade, then using tenotomy scissors under direct visualization. The A1 palmira was noted to be thickened. Following our A1 palmira release, we no longer saw any locking or catching of the digit with flexion and extension. Once satisfied with our A1 palmira release the wound was copiously irrigated with normal saline and hemostasis was obtained with a brief period of local pressure. The skin edges were reapproximated with some 5.0 nylon suture material and a sterile dressing was applied. The patient appears to have tolerated the procedure well and with no complications. All digits were well vascularized at the conclusion of the case.
[2024-10-01 15:01] VITALS: BP 93/50; PULSE 70; RESP 16; O2SAT 97
== END 2024-10-01 15:17 | disposition home or self-care (01) ==
PROVIDERS: PCP Student in an Organized Health Care Education/Training Program; Visit Provider Orthopaedic Surgery
PROC: (CPT 26055; principal; 2024-10-01 13:40)
DX: M65.322 Trigger finger, left index finger (principal); R20.0 Anesthesia of skin; R20.2 Paresthesia of skin; E78.00 Pure hypercholesterolemia, unspecified; J45.909 Unspecified asthma, uncomplicated; E11.9 Type 2 diabetes mellitus without complications; Z88.0 Allergy status to penicillin; Z88.2 Allergy status to sulfonamides; Z91.040 Latex allergy status; Z88.8 Allergy status to other drugs, medicaments and biological substances; Z98.890 Other specified postprocedural states; Z98.84 Bariatric surgery status; Z87.891 Personal history of nicotine dependence
CPT/HCPCS: 26055; J0171; J2003

== ENCOUNTER → 2024-10-01 10:47 | Outpatient (BNV) | payer OTHER, SELFPAY | PROVIDERS: PCP Student in an Organized Health Care Education/Training Program; Visit Provider Orthopaedic Surgery | DX: M65.322 Trigger finger, left index finger (principal) | CPT/HCPCS: 26055 ==

== ENCOUNTER 2024-10-15 08:02 | Outpatient (AMB) | payer OTHER, SELFPAY ==
[2024-10-15 08:10] VITALS: BMI 28.2
--- NOTE | 2024-10-15 08:10 | A.OFFVIS_ITS ---
Vital Signs 10/15/24 08:10 Height 5 ft 2 in Weight 154 lb BMI 28.2 Intake Visit Reasons: PO-Lt IF Trigger Release 10/01/24 Intake Note: Nayely 63 yr old female presents today for his P/O visit for his left index finger trigger release from 10/01/24. States locking has resolved however she still has swelling and is working on making a close fist. Allergies prochlorperazine [From Compazine] Allergy (Severe, Verified 10/15/24 08:17) Seizure Penicillins Allergy (Intermediate, Verified 10/15/24 08:17) HIVES sulfamethoxazole [From BACTRIM] Allergy (Intermediate, Verified 10/15/24 08:17) BLISTERS- DELGADO - NERVE ENDINGS IN HAND/ERYTHEMA MULTIFORM trimethoprim [From BACTRIM] Allergy (Intermediate, Verified 10/15/24 08:17) BLISTERS- DELGADO - NERVE ENDINGS IN HAND/ERYTHEMA MULTIFORM latex [Latex] Allergy (Mild, Verified 10/15/24 08:17) RASH transparent dressing [Tegaderm] Adverse Reaction (Severe, Verified 10/15/24 08:17) Redness of Skin theophylline Adverse Reaction (Intermediate, Verified 10/15/24 08:17) TACHYCARDIA HPI HPI PO-Lt IF Trigger Release 10/01/24: Details: Nayely 63 yr old female presents today for his P/O visit for his left index finger trigger release from 10/01/24. States locking has resolved however she st ill has swelling and is working on making a close fist. Reports some discomfort in the dorsal aspect of the left index finger when making a full closed fist. Denies numbness or tingling in the left upper extremity. [facility] Medical History Abscess Abdominal pain Infection of skin due to methicillin resistant Staphylococcus aureus (MRSA) Numbness of right hand COVID-19 Sebaceous cyst Cubital tunnel syndrome on left Contusion of right ankle Numbness and tingling in left hand Left hand pain Stiffness of left hand joint Emesis Overweight (BMI 25.0-29.9) Borderline diabetes Dyslipidemia Non-toxic multinodular goiter Diabetes type 2, controlled History of restless legs syndrome Anxiety Depression High cholesterol Asthma DVT (deep venous thrombosis) GERD (gastroesophageal reflux disease) Anastomotic ulcer Surgical History Hx of colonoscopy H/O removal of cyst (02/03/23) History of removal of cyst (07/28/22) Hx of cholecystectomy History of surgery History of surgery on left wrist Hx of elbow surgery History of excision of epidermal inclusion cyst (03/23/22) Hx of excision of epidermal inclusion cyst (12/25/21) History of excision of mass (10/26/21) S/P trigger finger release History of tooth extraction Hx of hand surgery Hx of esophagogastroduodenoscopy S/P gastric bypass History of hysterectomy Family History Mother Diabetes mellitus CHF (congestive heart failure) Kidney failure Cervical cancer Brother No problems noted. Brother No problems noted. 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 Neuro: Normal sensation of the tips of all digits of the left hand at this time Vascular: Cap refill brisk Pain: No tenderness to palpation about the incision site over A1 palmira of the left index finger Reports significant discomfort over the entire dorsal aspect of the left index finger when making a full closed fist ROM: With encouragement, patient was able to make a closed fist and extend all digits of the left hand fully, but reports some fairly significant discomfort when making a fist in the left index finger Skin: Well approximated and well healing incision site noted over the A1 palmira of the left index finger No lacerations or abrasions. General: No ecchymosis, erythema, or evidence of infection. Psych: Appears grossly normal Affect normal Attitude cooperative Assessment & Plan Assessment & Plan (1) Trigger finger, left index finger: Code(s): M65.322 - Trigger finger, left index finger Category: Medical Plan 1. Trigger finger, left index finger Status post trigger release DOS 10/01/2024 Patient appears to be recovering well postoperatively Patient is educated about the typical recovery course Patient is shown several [id number] exercises in the office today, and approximately 5 minutes is spent helping the patient to make a closed fist to attempt to alleviate the stiffness she is now experiencing postoperatively Patient was also referred to occupational therapy for range of motion and strengthening of the left hand in the setting of the stiffness Patient will follow-up as needed with any acute concerns Orders: Orders OT Evaluation and Treatment Today M65.322 - Trigger finger, left index finger Coding Level of Care Code Global (92267) Diagnoses Trigger finger, left index finger M65.322
--- OUTSIDE RECORDS SUMMARY | 2024-10-15 08:10 | XMS_ITS | Encounter Summary ---
Author Organization [employer] Address [address] [facility] 7t [place] [address] Care Team Providers Care Health And Wellness Advisor Name Role Phone Joyce Tapia MD Primary Care Provider [phone] Reason for Visit * Reason Onset Date Comments Med Refill 09/24/2024 Encounter Details Date Type Department Care Team (Late st Contact Info) Description 09/24/2024 Refill [facility] CH[facility] MED & PEDS [address] [place], [place] [phone] Joyce Tapia MD 505 [place] [address] Status post surgical removal of nail matrix of toe of left foot Social History Tobacco Use Types Packs/Day Years Used Date Smoking Tobacco: Every Day Cigarettes Passive Smoke Exposure: Never Smokeless Tobacco: Never Alcohol Use Standard Drinks/Week Comments Never 0 (1 standard drink = 0.6 oz pur e alcohol) Depression Answer Date Recorded Patient Health Questionnaire-9 Score 7 09/14/2024 Patient Health Questionnaire-9 Score 7 09/14/2024 Last PHQ-9: Questionnaire Data Not on file 0 09/14/2024 Housing Stability Answer Date Recorded What is your housing situation today? I have yadira sing 01/04/[address] you li [...] off services in your home? No 01/04/2024 Depression Answer Date Recorded Patient Health Questionnaire-2 Score 2 09/14/2024 Internet Access Answer Date Recorded Internet Access [...] Care Team (Late st Contact Info) Description 10/18/2024 10:00 AM EDT Clinical Support [facility] MED & PEDS [address] [place] [address] Katherine Casper, RN 505 [place] [address] 10/31/2024 10:00 AM EDT Medication Management [facility] MED & PEDS [address] [place] [address] Cristal Muhammad PharmD [address] [place] [address] documented as of this encounter Visit Diagnoses Diagnosis Status post surgical removal of nail matrix of toe of left foot documented in this encounter Additional Health Concerns Assessment Noted Time PHQ-9 Depression Total Score: 7 09/15/19 25 9:02 AM EDT documented as of this encounter Care Teams Health And Wellness Advisor Relationship Specialty Start Date End Date Joyce Tapia MD [address] [place] [address] PCP - General Family Medicine 06/19/12 documented as of this encounter
--- OUTSIDE RECORDS SUMMARY | 2024-10-15 08:11 | XMS_ITS | Encounter Summary ---
Author Organization [employer] Address [address] [facility] [facility] [address] 7[address] [place] [address] Care Team Providers Care Bung Remover Name Role Phone Joyce Tapia MD Primary Care Provider [phone] Reason for Visit * Reason Onset Date Comments Med Refill 04/18/2024 Encounter Details Date Type Department Care Team (Late st Contact Info) Description 04/18/2024 Refill [facility] MEDICINE [address] [place], [place] [phone] Amber Palacio MD [address] [place], [place] [phone] Smoker Social History Tobacco Use Types Packs/Day [...] Description 10/18/2024 10:00 AM EDT Clinical Support [facility] MED & PEDS [address] [place] [address] Katherine Casper, RN 505 [place] [address] 10/31/2024 10:00 AM EDT Medication Management [facility] MED & PEDS [address] [place] [address] Cristal Muhammad, PharmD [address] [place] [address] documented as of this encounter Visit Diagnoses Diagnosis Smoker Tobacco use disorder documented in this encounter Care Teams Bung Remover Relationship Specialty Start Date End Date Joyce Tapia MD [address] [place] [address] PCP - General Family Medicine 06/19/12 documented as of this encounter
--- OUTSIDE RECORDS SUMMARY | 2024-10-15 08:11 | XMS_ITS | Encounter Summary ---
Author Organization [employer] Address [address] [facility] [address] 7t [place] [address] Care Team Providers Care Roll Trucker Name Role Phone Joyce Tapia MD Primary Care Provider [phone] Reason for Visit * Reason Onset Date Comments Med Refill 04/19/2024 Encounter Details Date Type Department Care Team (Late st Contact Info) Description 04/19/2024 Refill [facility] MEDICINE [address] [place] [address] Joyce Tapia MD [address] [place] [address] Status post surgical removal of nail matrix [...] Description 10/18/2024 10:00 AM EDT Clinical Support [facility] MED & PEDS [address] [place] [address] Katherine Casper, RN 505 [place] [address] 10/31/2024 10:00 AM EDT Medication Management [facility] MED & PEDS [address] [place] [address] Cristal Muhammad, PharmD [address] [place] [address] documented as of this encounter Visit Diagnoses Diagnosis Status post surgical removal of nail matrix of toe of left foot documented in this encounter Care Teams Roll Trucker Relationship Specialty Start Date End Date Joyce Tapia MD [address] [place] [address] PCP - General Family Medicine 06/19/12 documented as of this encounter
--- OUTSIDE RECORDS SUMMARY | 2024-10-15 08:11 | XMS_ITS | Encounter Summary ---
Author Organization [employer] Address [address] [facility] [address] 7t [place] [address] Care Team Providers Care Accounts Payable Bookkeeper Name Role Phone Joyce Tapia MD Primary Care Provider [phone] Reason for Visit * Reason Onset Date Comments Med Refill 04/11/2024 Encounter Details Date Type Department Care Team ([facility] st Contact Info) Description 04/11/2024 Telephone [facility] CHC MED & PEDS [address] [place], [place] [phone] Joyce Tapia MD 505 [place] [address] Med Refill Social History Tobacco Use Types [...] immediate release tablet To be sent to: [facility] - [place], [place] - [address] [place] [address] documented in this encounter Plan of Treatment Upcoming Encounters Date Type Department Care Team ([facility] st Contact Info) Description 10/18/2024 10:00 AM EDT Clinical Support [facility] MED & PEDS [address] [place] [address] Katherine Casper, RN 505 [place] [address] 10/31/2024 10:00 AM EDT Medication Management [facility] MED & PEDS [address] [place] [address] Cristal Muhammad, PharmD 230 [place] [address] documented as of this encounter Visit Diagnoses Not on filedocumented in this encounter Care Teams Accounts Payable Bookkeeper Relationship Specialty Start Date End Date Joyce Tapia MD [address] [place] [address] PCP - General Family Medicine 06/19/12 documented as of this encounter
--- OUTSIDE RECORDS SUMMARY | 2024-10-15 08:11 | XMS_ITS | Encounter Summary ---
Author Organization [employer] Address [address] [facility] 7t [place] [address] Care Team Providers Care Manager Audio Name Role Phone Joyce Tapia MD Primary Care Provider [phone] Reason for Visit * Reason Onset Date Comments Med Refill 09/05/2024 Encounter Details Date Type Department Care Team (Late st Contact Info) Description 09/05/2024 Refill [facility] CHC MED & PEDS [address] [place], [place] [phone] Joyce Tapia MD 505 [place] [address] Status post surgical removal of nail matrix [...] Upcoming Encounters Date Type Department Care Team ([facility] st Contact Info) Description 10/18/2024 10:00 AM EDT Clinical Support [facility] MED & PEDS [address] [place] [address] Katherine Casper, RN 505 [place] [address] 10/31/2024 10:00 AM EDT Medication Management [facility] MED & PEDS [address] [place] [address] Cristal Muhammad PharmD 230 [place] [address] documented as of this encounter Visit Diagnoses Diagnosis Status post surgical removal of nail matrix of toe of left foot documented in this encounter Care Teams Manager Audio Relationship Specialty Start Date End Date Joyce Tapia MD [address] [place] [address] PCP - General Family Medicine 06/19/12 documented as of this encounter
--- OUTSIDE RECORDS SUMMARY | 2024-10-15 08:11 | XMS_ITS | Encounter Summary ---
Author Organization [employer] Address [address] [facility] 7t [place] [address] Care Team Providers Care Market Development Executive Name Role Phone Joyce Tapia MD Primary Care Provider [phone] Reason for Visit * Reason Onset Date Comments Med Refill 08/15/2024 Encounter Details Date Type Department Care Team (Late st Contact Info) Description 08/15/2024 Refill [facility] CHC MED & PEDS [address] [place], [place] [phone] Joyce Tapia MD 505 [place] [address] Status post surgical removal of nail matrix [...] ([facility] st Contact Info) Description 10/18/2024 10:00 AM EDT Clinical Support [facility] MED & PEDS 505 [place] [address] Katherine Casper, RN 505 [place] [address] 10/31/2024 10:00 AM EDT Medication Management [facility] MED & PEDS [address] [place] [address] Cristal Muhammad PharmD 230 [place] [address] documented as of this encounter Visit Diagnoses Diagnosis Status post surgical removal of nail matrix of toe of left foot documented in this encounter Care Teams Market Development Executive Relationship Specialty Start Date End Date Joyce Tapia MD 230 [place] [address] PCP - General Family Medicine 06/19/12 documented as of this encounter
--- OUTSIDE RECORDS SUMMARY | 2024-10-15 08:11 | XMS_ITS | Encounter Summary ---
Author Organization [employer] [facility] Address [address] [facility] 7t [place] [address] Care Team Providers Care Clinical Documentation Improvement Specialist Name Role Phone Joyce Tapia MD Primary Care Provider [phone] Reason for Visit * Reason Comments Med Refill Encounter Details Date Type Department Care Team (Late st Contact Info) Description 10/24/2023 Refill [facility] MEDICINE [address] [place], [place] [phone] Joyce Tapia MD 505 [place] [address] Status post surgical removal of nail matrix [...] Description 10/18/2024 10:00 AM EDT Clinical Support [facility] CHC MED & PEDS [address] [place] [address] Katherine Casper RN 505 [place], [place] [phone] 10/31/2024 10:00 AM EDT Medication Management [facility] MED & PEDS [address] [place] [address] Cristal Muhammad PharmD 230 [place] [address] documented as of this encounter Visit Diagnoses Diagnosis Status post surgical removal of nail matrix of toe of left foot documented in this encounter Care Teams Clinical Documentation Improvement Specialist Relationship Specialty Start Date End Date Joyce Tapia MD [address] [place] [address] PCP - General Family Medicine 06/19/12 documented as of this encounter
--- OUTSIDE RECORDS SUMMARY | 2024-10-15 08:11 | XMS_ITS | Encounter Summary ---
Author Organization [employer] Address [address] [facility] 7t [place] [address] Care Team Providers Care Paint Prep Technician Name Role Phone Joyce Tapia MD Primary Care Provider [phone] Reason for Visit * Reason Onset Date Comments Med Refill 04/19/2023 Encounter Details Date Type Department Care Team (Late st Contact Info) Description 04/19/2023 Telephone [facility] CHC MED & PEDS [address] [place] [address] Joyce Tapia MD [address] [place] [address] Med Refill Social History Tobacco Use Types [...] Description 10/18/2024 10:00 AM EDT Clinical Support [facility] MED & PEDS 505 [place] [address] Katherine Casper, RN [address] [place] [address] 10/31/2024 10:00 AM EDT Medication Management [facility] MED & PEDS 505 [place] [address] Cristal Muhammad PharmD 230 [place] [address] documented as of this encounter Visit Diagnoses Not on filedocumented in this encounter Care Teams Paint Prep Technician Relationship Specialty Start Date End Date Joyce Tapia MD [address] [place] [address] PCP - General Family Medicine 06/19/12 documented as of this encounter
--- OUTSIDE RECORDS SUMMARY | 2024-10-15 08:11 | XMS_ITS | Encounter Summary ---
Author Organization [employer] Address [address] [facility] 7t [place] [address] Care Team Providers Care Instruction Dean Name Role Phone Joyce Tapia MD Primary Care Provider [phone] Reason for Visit * Reason Onset Date Comments Referral 03/09/2023 Encounter Details Date Type Department Care Team ([facility] st Contact Info) Description 03/09/2023 Telephone [facility] CHC MED & PEDS [address] [place], [place] [phone] Joyce Tapia MD 505 [place] [address] Referral Social History Tobacco Use Types Packs/Day [...] wait that long. Please contact pt at [phone] documented in this encounter Plan of Treatment Upcoming Encounters Date Type Department Care Team (Late st Contact Info) Description 10/18/2024 10:00 AM EDT Clinical Support [facility] MED & PEDS [address] [place] [address] Katherine Casper, RN 505 [place], [place] 10/31/2024 10:00 AM EDT Medication Management [facility] MED & PEDS [address] [place] [address] Cristal Muhammad PharmD 230 [place] [address] documented as of this encounter Visit Diagnoses Not on filedocumented in this encounter Care Teams Instruction Dean Relationship Specialty Start Date End Date Joyce Tapia MD 230 [place] [address] PCP - General Family Medicine 06/19/12 documented as of this encounter
--- OUTSIDE RECORDS SUMMARY | 2024-10-15 08:11 | XMS_ITS | Encounter Summary ---
Author Organization [employer] Address [address] [facility] 7t [place] [address] Care Team Providers Care Cloth Inspector Name Role Phone Joyce Tapia MD Primary Care Provider [phone] Reason for Visit * Reason Onset Date Comments Med Refill 03/17/2023 Encounter Details Date Type Department Care Team (Late st Contact Info) Description 03/17/2023 Telephone [facility] CHC MED & PEDS [address] [place] [address] Joyce Tapia MD 505 [place] [address] Med Refill Social History Tobacco Use Types [...] Description 10/18/2024 10:00 AM EDT Clinical Support [facility] MED & PEDS 505 [place] [address] Katherine Casper, RN 505 [place], [place] 10/31/2024 10:00 AM EDT Medication Management [facility] MED & PEDS 505 [place] [address] Cristal Muhammad, BobD 230 [place] [address] documented as of this encounter Visit Diagnoses Not on filedocumented in this encounter Care Teams Cloth Inspector Relationship Specialty Start Date End Date Joyce Tapia MD [address] [place] [address] PCP - General Family Medicine 06/19/12 documented as of this encounter
--- OUTSIDE RECORDS SUMMARY | 2024-10-15 08:11 | XMS_ITS | Encounter Summary ---
Author Organization [employer] [facility] Address [address] [facility] 7t [place] [address] Care Team Providers Care Child Day Care Center Worker Name Role Phone Joyce Tapia MD Primary Care Provider [phone] Encounter Details Date Type Department Care Team (Latest Contact Info) Description 03/21/2019 Abstract [facility] CONVERSIONS Dental, Provider, DDS Social History [...] Description 10/18/2024 10:00 AM EDT Clinical Support [facility] MED & PEDS [address] [place] [address] Katherine Casper, MAKEDA 505 [place] [address] 10/31/2024 10:00 AM EDT Medication Management [facility] MED & PEDS 505 [place] [address] Cristal Muhammad PharmD [address] [place] [address] documented as of this encounter Visit Diagnoses Not on filedocumented in this encounter Care Teams Child Day Care Center Worker Relationship Specialty Start Date End Date Joyce Tapia MD [address] [place] [address] PCP - General Family Medicine 06/19/12 documented as of this encounter
--- OUTSIDE RECORDS SUMMARY | 2024-10-15 08:11 | XMS_ITS | Encounter Summary ---
Author Organization [employer] Address [address] [facility] [address] 7[address] [place] [address] Care Team Providers Care Mail Caller Name Role Phone Joyce Tapia MD Primary Care Provider [phone] Reason for Visit * Reason Comments Med Refill Encounter Details Date Type Department Care Team ([facility] st Contact Info) Description 04/12/2024 Refill [facility] CHC MED & PEDS [address] [place], [place] [phone] Joyce Tapia MD 505 [place] [address] Status post surgical removal of nail matrix [...] Description 10/18/2024 10:00 AM EDT Clinical Support [facility] MED & PEDS [address] [place] [address] Katherine Casper, RN 505 [place] [address] 10/31/2024 10:00 AM EDT Medication Management [facility] MED & PEDS [address] [place] [address] Cristla Muhammad, PharmD [address] [place] [address] documented as of this encounter Visit Diagnoses Diagnosis Status post surgical removal of nail matrix of toe of left foot documented in this encounter Care Teams Mail Caller Relationship Specialty Start Date End Date Joyce Tapia MD [address] [place] [address] PCP - General Family Medicine 06/19/12 documented as of this encounter
--- OUTSIDE RECORDS SUMMARY | 2024-10-15 08:11 | XMS_ITS | Encounter Summary ---
Author Organization [employer] Address [address] [facility] 7t [place] [address] Care Team Providers Care Core Setter Name Role Phone Joyce Tapia MD Primary Care Provider [phone] Reason for Visit * Reason Onset Date Comments Med Refill 07/25/2024 Encounter Details Date Type Department Care Team (Late st Contact Info) Description 07/25/2024 Refill [facility] MEDICINE 230 [place] [address] Emerson Keith MD 505 [place] [address] Status post surgical removal of nail matrix [...] Upcoming Encounters Date Type Department Care Team ([facility] st Contact Info) Description 10/18/2024 10:00 AM EDT Clinical Support [facility] MED & PEDS 505 [place] [address] Katherine Casper, RN 505 [place] [address] 10/31/2024 10:00 AM EDT Medication Management [facility] MED & PEDS [address] [place] [address] Cristal Muhammad PharmD [address] [place] [address] documented as of this encounter Visit Diagnoses Diagnosis Status post surgical removal of nail matrix of toe of left foot documented in this encounter Care Teams Core Setter Relationship Specialty Start Date End Date Joyce Tapia MD [address] [place] [address] PCP - General Family Medicine 06/19/12 documented as of this encounter
--- OUTSIDE RECORDS SUMMARY | 2024-10-15 08:11 | XMS_ITS | Encounter Summary ---
Author Organization [facility] Address [address] [place] [address] Care Team Providers Care Postal Service Window Clerk Name Role Phone Joyce Tapia MD Primary Care Provider [phone] Reason for Visit * Reason Comments Med Refill Encounter Details Date Type Department Care Team (Late st Contact Info) Description 11/04/2023 Refill [facility] [address] [place] [address] Joyce Tapia MD [address] [place] [address] Status post surgical removal of nail matrix [...] [facility] [address] [place] [address] Katherine Casper RN [address] [place] [address] 10/31/2024 10:00 AM EDT Medication Management [facility] [address] [place] [address] Cristal Muhammad, Deonte [address] [place], [place] [phone] documented as of this encounter Visit Diagnoses Diagnosis Status post surgical removal of nail matrix of toe of left foot documented in this encounter Care Teams Postal Service Window Clerk Relationship Specialty Start Date End Date Joyce Taipa MD [address] [place] [address] PCP - General Family Medicine 06/19/12 documented as of this encounter
--- OUTSIDE RECORDS SUMMARY | 2024-10-15 08:11 | XMS_ITS | Encounter Summary ---
Author Organization [employer] Address [address] [place] [address] Care Team Providers Care Field Training Agent Name Role Phone Joyce Tapia MD Primary Care Provider [phone] Reason for Visit * Reason Onset Date Comments Med Refill 07/19/2024 Encounter Details Date Type Department Care Team ([facility] st Contact Info) Description 07/19/2024 Refill [facility] [address] [place], [place] [phone] Joyce Tapia MD [address] [place] [address] Social History Tobacco Use Types Packs/Day Years [...] [facility] [address] [place] [address] Katherine Casper, MAKEDA [address] [place] [address] 10/31/2024 10:00 AM EDT Medication Management [facility] [address] [place] [address] Cristal Muhammad, PharmD [address] [place] [address] documented as of this encounter Visit Diagnoses Not on filedocumented in this encounter Care Teams Field Training Agent Relationship Specialty Start Date End Date Joyce Tapia MD [address] [place] [address] PCP - General Family Medicine 06/19/12 documented as of this encounter
--- OUTSIDE RECORDS SUMMARY | 2024-10-15 08:11 | XMS_ITS | Clinical Summary ---
Author Organization [facility] Address [address] [place] [address] Care Team Providers Care Senior Financial Reporting Analyst Name Role Phone Joyce Tapia MD Primary Care Provider [phone] Allergies Active Allergy Reactions Criticality Noted Date [...] and swelling). 30 g 2 024 Active cyanocobalamin (Vitamin B-12) 1000 MCG [...] daily. 025 Active Blood Glucose Monitoring Suppl (HiChina Lite) w/Device kit Test blood sugar as directed 1 kit 025 Active Blood Pressure kit Check blood pressure daily 1 kit 025 Active atorvastatin (Lipitor) 40 MG tablet Take 1 tablet (40 mg) by mouth Once per day. 90 tablet 3 025 Active glucagon (Baqsimi Two Pack) 3 MG/DOSE nasal powder Administer 3 mg into affected nostril(s) 1 (one) time if needed for low blood sugar. 1 each Active sertraline (Zoloft) 100 MG tablet TAKE ONE TABLET EVERY NIGHT AT BEDTIME 30 tablet 6 Active varenicline (Chantix) 1 MG tablet Take 1 tablet (1 mg) by mouth 2 times daily. Take with full glass of water. 56 tablet 2 Active lidocaine (Lidoderm) 5 % patchIndication s:Pain Apply 1 patch topically Once per day. Remove & discard patch within 12 hours or as directed by MD. 30 patch 025 2025 Active Ferrous Sulfate (iron) 325 (65 Fe) MG tablet TAKE ONE TABLET EVERY MORNING 90 tablet 1 Active zolpidem (Ambien) 5 MG tablet TAKE ONE TABLET AT BEDTIME NEEDED FOR SLEEP 30 tablet Active meclizine (Antivert) 25 MG tablet 1 tab po BID 60 tablet 3 Active Continuous Glucose Sensor (FreeStyle Gwendolyn 3 Plus Sensor) misc 1 each every 15 days. 2 each Active Lancets 33G misc Test blood sugar 3 times daily due to recurring hypoglycemia Active glucose blood (FREESTYLE LITE) test strip Test blood sugar 3 times daily due to recurring hypoglycemia 025 2025 Active oxyCODONE (Roxicodone) 5 MG immediate release tabletIndicatio ns:Status post surgical removal of nail matrix of toe of left foot Take 1 tablet (5 mg) by mouth every 6 (six) hours if needed for severe pain. 30 tablet Active glucose blood (FREESTYLE LITE) test strip Test blood sugar every day as directed 100 each 025 2024 Discontinued(R eorder (will not trigger notification to Pharmacy)) Lancets 33G misc Test blood sugar every day as directed 100 each 025 2024 Discontinued(R eorder (will not trigger notification to Pharmacy)) zolpidem (Ambien) 5 MG tablet TAKE ONE TABLET AT BEDTIME NEEDED FOR SLEEP 30 tablet 025 2024 Discontinued(R eorder (will not trigger notification to Pharmacy)) oxyCODONE (Roxicodone) 5 MG immediate release tabletIndicatio ns:Status post surgical removal of nail matrix of toe of left foot Take 1 tablet (5 mg) by mouth every 6 (six) hours if needed for severe pain. 30 tablet 025 2024 Discontinued(R eorder (will not trigger notification to Pharmacy)) meclizine (Antivert) 25 MG tablet 1 tab po BID 60 tablet 3 025 2024 Discontinued(R eorder (will not trigger [...] Rest drink plenty of fluids Acetaminophen PRN Bereavement, uncomplicated 01/03/2023 Assessment & Plan (01/03/2023 [...] supports PLAN: 1. Follow up with [facility]: Not recommended for follow-up 2. Behavioral Recommendations brianna Adler will reach out to [facility] and[facility]or [facility] if further supports needed Status post [...] pain 09/28/2011 Diabetes mellitus 09/28/2011 Headache 09/28/2011 Resolved Problems Problem Noted Date Diagnosed Date Resolved Date Upper respiratory tract infection 10/24/2023 09/14/2024 Assessment & Plan (10/24/2023 9:05 PM EDT): Negative for COVID and FLU. Begin medications and if symptoms worsen f/u. Relevant medications Azithromycin (Zithromax) 250 MG Tablet Prednisone (Deltasone) 20 MG Tablet Encounters Date Type Department Care Team Description 10/15/2024 Refill [facility] [address] [place] [address] Emerson Keith MD Status post surgical removal of nail matrix of toe of left foot 10/08/2024 Refill [facility] [address] [place] [address] Joyce Tapia MD Status post surgical removal of nail matrix of toe of left foot 10/07/2024 Refill [facility] [address] [place] [address] Joyce Tapia MD Status post surgical removal of nail matrix of toe of left foot 10/01/2024 Refill [facility] [address] [place] [address] Joyce Tapia MD Status post surgical removal of nail matrix of toe of left foot 09/26/2024 Refill [facility] [address] [place] [address] Joyce Tapia MD Status post surgical removal of nail matrix of toe of left foot 09/25/2024 Orders Only [facility] [address] [place] [address] Joyce Tapia MD 09/25/2024 Travel 09/25/2024 Refill [facility] [address] [place] [address] Joyce Tapia MD Status post surgical removal of nail matrix of toe of left foot 09/24/2024 Refill [facility] [address] [place] [address] Joyce Tapia MD Status post surgical removal of nail matrix of toe of left foot 09/17/2024 Refill [facility] [address] [place] [address] Emerson Keith MD Status post surgical removal of nail matrix of toe of left foot 09/17/2024 Refill [facility] [address] [place] [address] Joyce Tapia MD Status post surgical removal of nail matrix of toe of left foot 09/14/2024 9:15 AM EDT Office Visit [facility] [address] [place] [address] Joyce Tapia MD Type 2 diabetes mellitus without complication, without long-term current use of insulin ([facility] (Primary Dx); Gastroesophageal reflux disease without esophagitis; Nevus 09/14/2024 Travel 09/13/2024 Telephone [facility] [address] [place] [address] Joyce Tapia MD Chart Prep 09/11/2024 Refill [facility] [address] [place] [address] Joyce Tapia MD 09/11/2024 Telephone [facility] [address] [place] [address] Joyce Tapia MD Med Refill 09/10/2024 Refill [facility] [address] [place] [address] Joyce Tapia MD Status post surgical removal of nail matrix of toe of left foot 09/07/2024 Patient Outreach [facility] [address] [place] [phone] Joyce Tapia MD Pre-visit Planning ([facility] screening completed on 08/30/24) 09/07/2024 Refill [facility] [address] [place] [address] Joyce Tapia MD 09/05/2024 Refill [facility] [address] [place] [address] Joyce Tapia MD Status post surgical removal of nail matrix of toe of left foot 09/05/2024 Refill [facility] [address] [place] [address] Jenny cShmidt MD Pain 09/05/2024 Refill [facility] [address] [place] [address] Joyce Tapia MD Status post surgical removal of nail matrix of toe of left foot 09/03/2024 Telephone [facility] [address] [place] [address] Cristal Muhammad PharmD 08/30/2024 Patient Outreach [facility] [address] [place] [address] Joyce Tapia MD Pre-visit Planning (SDOH negative, Tobacco screening negative. ) 08/29/2024 Refill [facility] [address] [place] [address] Joyce Tapia MD Status post surgical removal of nail matrix of toe of left foot 08/23/2024 Patient Outreach [facility] [address] [place] [address] Joyce Tapia MD Transition Of Care (Tcm) 08/20/2024 Orders Only GENERIC EXTERNAL DATA DEPARTMENT Provider, Generic External Data 08/17/2024 Refill [facility] [address] [place] [address] Joyce Tapia MD Status post surgical removal of nail matrix of toe of left foot 08/15/2024 Refill [facility] [address] [place] [address] Joyce Tapia MD 08/15/2024 Refill [facility] [address] [place] [address] Joyce Tapia MD Status post surgical removal of nail matrix of toe of left foot 08/15/2024 Refill [facility] [address] [place] [address] Joyce Tapia MD Status post surgical removal of nail matrix of toe of left foot 08/10/2024 Refill [facility] [address] [place] [address] Emerson Keith MD 08/09/2024 10:30 AM EST [facility] [address] [place] [address] Katherine Casper, template cutter bilateral low back pain with left-sided sciatica 08/09/2024 Telephone [facility] [address] [place] [address] Katherine Casper, RN 08/09/[address] [address] Joyce Tapia MD Appt 08/09/2024 Travel 08/08/2024 Refill [facility] [address] [place] [address] Joyce Tapia MD Status post surgical removal of nail matrix of toe of left foot 08/07/2024 Travel 08/02/2024 Orders Only [facility] [address] [place] [address] Joyce Tapia MD Type 2 diabetes mellitus without complication, without long-term current use of insulin ([facility] (Primary Dx) 08/02/2024 Telephone [facility] [address] [place] [address] Joyce Tapia MD Med Refill 08/01/2024 Orders Only GENERIC EXTERNAL DATA DEPARTMENT Provider, Generic External Data 08/01/[address] [address] Joyce Tapia MD Status post surgical removal of nail matrix of toe of left foot 08/01/2024 Refill [facility] [address] [place] [address] Emerson Keith MD Status post surgical removal of nail matrix of toe of left foot 07/27/2024 Telephone [facility] [address] [place] [address] Joyce Tapia MD Med Refill 07/27/2024 Refill [facility] [address] [place] [address] Emerson Keith MD Status post surgical removal of nail matrix of toe of left foot 07/26/2024 Refill [facility] [address] [place] [address] Joyce Tapia MD Status post surgical removal of nail matrix of toe of left foot 07/25/2024 Telephone [facility] [address] [place] [address] Joyce Tapia MD 07/25/2024 Refill [facility] [address] [place] [address] Emerson Keith MD Status post surgical removal of nail matrix of toe of left foot 07/24/2024 Patient Outreach [facility] [address] [place] [address] Joyce Tapia MD Transition Of Care (Tcm) 07/19/2024 Refill [facility] [address] [place], [place] [phone] Joyce Tapia MD 07/19/2024 Refill [facility] [address] [place], [place] [phone] Joyce Tapia MD Status post surgical removal of nail matrix of toe of left foot 07/18/2024 Orders Only GENERIC EXTERNAL DATA DEPARTMENT Provider, Generic External Data from Last 3 Months Immunizations Name Administration [...] Sign Reading Time Taken Comments Blood Pressure 106/65 09/14/2024 8:58 AM EDT Pulse 76 09/14/2024 8:58 AM EDT Temperature 36.2 ??C (97.1 ??F) 09/14/2024 8:58 AM ED T Respiratory Rate 18 09/14/2024 8:58 AM EDT Oxygen Saturation 94% 03/13/2024 9:05 AM EDT Inhaled Oxygen Concentration - - Weight 68.9 kg (152 lb) 09/14/2024 8:58 AM EDT Height 160 cm (5' 3 ) 09/14/2024 8:58 AM EDT Body Mass Index 26.93 09/14/2024 8:58 AM EDT Plan of Treatment Upcoming Encounters Date Type Department Care Team (Late st Contact Info) Description 10/18/2024 10:00 AM EDT Clinical Support [facility] [address] [place] [address] Katherine Casper, RN [address] [place] [address] 10/31/2024 10:00 AM EDT Medication Management [facility] [address] [place] [address] Cristal Muhammad, PharmD [address] [place] [address] Health Maintenance Due Date Last Done Comments CT Colonography 1962 FIT DNA/Cologuard 1962 FIT 1962 FOBT 1960 HIV Screening 1960 Sigmoidoscopy 1962 Eye Exam 1972 Hepatitis C Screening 1980 Pap Smear 03/31/2024 03/31/2021 Mammogram 05/28/2024 05/28/2023, 08/04, 08/16/2020, Additional history exists Diabetes: Hemoglobin A1C 01/06/2025 025, 01/13/2024, 06/03/2023, Additional history exists Colonoscopy 02/20/2025 02/20/2015 Colorectal Cancer Screening 02/20/2025 Diabetes: Foot Exam 07/09/2025 07/09/2024, 07/09/2024, 07/09/2024, Additional history exists Tobacco Screening 08/07/2025 08/07/2024 SDOH Screening 08/30/2025 08/30/2024 Alcohol/Substance Use Screening 09/14/2025 09/14/2024 Depression Screening 09/14/2025 09/14/2024, 09/15/19 Diabetes: Urine Protein Screening 09/25/2025 09/25/2024, 08/20/2021 Lipid Panel 09/25/2025 09/25/2024, 07/09/2024 Cervical Cancer Screening 03/31/2026 HPV/Cotest 03/31/2026 03/31/2021 DTaP/Tdap/Td Vaccines (3 - Td or Tdap) 03/16/2034 03/16/2024, 04/28/2018, 05/17/2001 RSV Patients and Patients Aged 60 years or older (1 - 1-dose 75+ series) 2037 Zoster Vaccines Completed 11/18/2022, 09/02/2022 Influenza Vaccine Completed 06/04/2024, , 04/05/2022, Additional history exists COVID-19 Vaccine Completed 08/07/2024, , 09/18/2020 Pneumococcal Vaccine: 50+ Years Completed 08/07/2024, 11/21/2016, [...] Procedure Name Priority Date/Time Associated Diagnosis Comments ALBUMIN, RANDOM URINE W/CREATININE Routine 09/25/2024 3:50 PM EDT LIPID PANEL, STANDARD Routine 09/25/2024 3:47 PM EDT POCT GLUCOSE Routine 09/14/2024 9:02 AM EDT Type 2 diabetes mellitus without complication, without long-term current use of insulin ([facility]) CT ABDOMEN PELVIS W CONTRAST Routine 09/12/2024 1:12 PM EDT D DIMER HIGH SENSITIVITY Routine 08/20/2024 9:30 [...] complication, without long-term current use of insulin ([facility]) BI MAMMOGRAM SCREENING TOMOSYNTHESIS BILATERAL Routine 05/28/2023 8:58 AM EST HPV MRNA E6/E7 Routine 03/31/2021 9:06 AM EDT THINPREP PAP Routine 03/31/2021 9:06 AM EDT HM COLONOSCOPY Routine 02/20/2015 from Last 3 Months or Most Recently Relevant to Health Maintenance Results * Albumin, Random Urine W/Creatinine (09/25/2024 3:50 PM EDT) Creatinine, Urine 83.95 mg/dL [facility] Microalbumin Urine <5.0 mg/L [facility] Microalbum Creatinine Ratio Ur TNP <30 ug/mg cr [facility] Comment:Unable to calculate albumin/creatinine ratio due to lowmicroalbumin or creatinine result. 09/25/2024 3:50 PM EDT 09/25/2024 5:55 PM EDT us Joyce Tapia MD LAB URINE ORDERABLES Final Resul t [facility] [address] [place], [place] [phone] * Lipid Panel, Standard (09/25/2024 3:47 PM EDT) Triglycerides 56 <150 mg/dL [facility] Comment:Desirable Triglyceri de: less than 150 mg/dLBorderline High Triglyceride 150-199 mg/dLHigh Triglyceride: 200-499 mg/dLVery High Triglyceride: greater than or equal to 5OO mg/dL Cholesterol 119 <200 mg/dL [facility] Comment:Desirable Cholestero l: less than 200 mg/dLBorderline High Cholesterol: 200-239 mg/dLHigh Cholesterol: greater than 239 mg/dL LDL Cholesterol Calculated 47 <100 mg/dL [facility] Comment:Desirable LDL: less than 100 mg/dLNear Optimal/Above Optimal LDL: 110- 129 mg/dLBorderline High LDL: 130-159 mg/dLHigh LDL: 160-189 mg/dLVery High LDL: greater than or equal to 190 mg/dL HDL Cholesterol 61 >40 mg/dL [facility] Comment:Desirable HDL: great er than 40 mg/dL Note: This HDL assay may give artificially low results in patients with liver disease. 09/25/2024 3:47 PM EDT 09/25/2024 6:08 PM EDT Joyce Tapia MD LAB BLOOD ORDERABLES Final Resul t [facility] [address] [place], [place] [phone] * POCT Glucose (09/14/2024 9:02 AM EDT) Glucose Blood, POC 197 60 - 200 mg/dL QC Media Lot # [id number] Lot# Expiration Date Blood Capillary blood specimen / Unknown 09/14/2024 9:02 AM EDT Joyce Tapia MD POINT OF CARE TEST ENTER/EDIT OR DERABLES Final Result * CT Abdomen Pelvis w/ Contrast (09/12/2024 1:12 PM EDT) Anatomical Region Laterality Modality Body, Pelvis, Abdomen Computed T omography 09/12/2024 1:12 PM EDT Narrative 09/12/2024 1:13 PM EDT ? [facility] ?[address] ?[place] [address] ? CT Scan Report ? Signed ? Patient: Grover,Nayely ?MR#: [id number] ?? 541 ? : 1960 ?Acct:[id number] ? Age/Sex: 63 / F ?ADM Date: 03/11/25 ? Loc: HO.CT ? Attending Dr: Angie Mosquera MD ? Ordering Physician: Mona Anne ?? Date of Service: 09/11/24 ?? Procedure(s): CT abdomen pelvis w IV con ?? Accession Number(s): [id number] ? cc: Mona Anne; Joyce Tapia MD ? Report Number: ?? [id number]: Total DLP = ??369.00 mGy-cm ? CLINICAL HISTORY: R10.9 - Unspecified abdominal pain ? CT abdomen and pelvis with contrast ? Comparison: CT/ME/SR - CT ABDOMEN PELVIS WO IV CON - 05/10/24 19:03 EST ? Findings: ?? The lung bases are clear. ? The gallbladder and solid organs are within normal limits. No renal ?? stones. ?? No bowel obstruction, pneumoperitoneum, or pneumatosis. ?? The patient is status post gastric bypass surgery. ? The patient is status post hysterectomy. ?? No acute fracture. ? IMPRESSION: ?? No acute findings. ? This document has been electronically signed by: Sukhwinder Rebolledo MD on ?? 09/12/2024 13:12:22 ? Dictated By: ?Sukhwinder Rebolledo MD ? Signed By: ?<Electronically signed by Sukhwinder Rebolledo MD in OV> ? 09/12/24 1313 ? DD/ 1312 ? TD/TT: 09/12/241311 ? Station Baggage Agent: ? Procedure Note Michelle Burt - 09/12/[address] [place] [address] [address] Scan Report Signed Patient: Nayely GroverMR#: [id number] 541 : 1960Acct:[id number] Age/Sex: 63 / FADM Date: 09/11/24 Loc: HO.CT Attending Dr: Angie Mosquera MD Ordering Physician: Mona Anne Date of Service: 09/11/24 Procedure(s): CT abdomen pelvis w IV con Accession Number(s): [id number] cc: Mona Anne; Joyce Tapia MD Report Number: [id number]: Total DLP = 369.00 mGy-cm CLINICAL HISTORY: R10.9 - Unspecified abdominal pain CT abdomen and pelvis with contrast Comparison: CT/ME/SR - CT ABDOMEN PELVIS WO IV CON - 05/10/24 19:03 EST Findings: The lung bases are clear. The gallbladder and solid organs are within normal limits. No renal stones. No bowel obstruction, pneumoperitoneum, or pneumatosis. The patient is status post gastric bypass surgery. The patient is status post hysterectomy. No acute fracture. IMPRESSION: No acute findings. This document has been electronically signed by: Sukhwinder Rebolledo MD on 09/12/2024 13:12:22 Dictated By: Sukhwinder Rebolledo MD Signed By: <Electronically signed by Sukhwinder Rebolledo MD in OV> 09/12/24 1313 DD/ 1312 TD/TT: 09/12/24 1312 Station Baggage Agent: [facility] External Provider IMG CT PROCEDURES Final Result * D Dimer High Sensitivity (08/20/2024 9:30 PM EST) [facility] D Dimer High Sensitivity <150 NG/ML [facility] Comment:D-DIMER HS REFERENCE RANGENote: Our assay [...] Provider LAB BLOOD ORDERAB LES Final Result [facility] [address] [place] [phone] * High Sensitivity Troponin I (08/20/2024 9:30 PM EST) Only the most recent of2 resultswithin the time period is included. [facility] TROPONIN I HIGH SENSITIVITY <2.7 <3.5 - 17.0 ng/L [facility] Comment:The [place] high sens itivity Troponin-I results should beused in conjunction with other diagnostic information suchas ECG, clinical observations and information, and patientsymptoms to aid in the diagnosis of NM. 08/20/2024 9:30 PM EST 08/20/2024 9:34 PM EST us Generic External Data Provider LAB BLOOD ORDERAB LES Final Result [facility] [address] [place] [address] [phone] * XR Chest 1 View (08/20/2024 8:47 PM EST) Anatomical Region Laterality Modality Chest Radiographic Yovana ging 08/20/2024 8:47 PM EST Narrative 08/20/2024 8:49 PM EST ? [facility] ?[address] ?[place] [address] ?XRay Report ? Signed ? Patient: Grover,Nayley ?MR#: [id number] ?? 541 ? : 1960 ?Acct:[id number] ? Age/Sex: 63 / F ?ADM Date: 08/20/24 ? Loc: HO.ED ? Attending Dr: ? Ordering Physician: Radha Javier ?? Date of Service: 08/20/24 ?? Procedure(s): XR chest 1V ?? Accession Number(s): [id number] ? cc: Radha Javier; Joyce Tapia MD [...] ? DD/ 46 ? TD/TT: 08/20/242046 ? Station Baggage Agent: ? Procedure Note Donotuseinterpreter, Image - 08/20/[address] [address] XRay Report Signed Patient: Nayely GroverMR#: [id number] 541 : 1960Acct:[id number] Age/Sex: 63 / FADM Date: 08/20/24 Loc: HO.ED Attending Dr: Ordering Physician: Radha Javier Date of Service: 08/20/24 Procedure(s): XR chest 1V Accession Number(s): [id number] cc: Radha Javier; Joyce Tapia MD CLINICAL [...] in OV> 08/20/242048 DD/ 46 TD/TT: 08/20/242046 Station Baggage Agent: [facility] External Provider IMG XR PROCEDURES Edited Result - Final * SARS-CoV-2 RNA, Influenza A/B, and RSV RNA, Ql NAAT (08/20/2024 7:41 PM EST) Influenza A PCR NEGATIVE Negative [facility] Influenza B PCR NEGATIVE Negative [facility] Resp Syncy Virus RNA Qual PCR NEGATIVE Negative [facility] SARS COV2 PCR NEGATIVE Negative [facility] Comment:All test results mus t [...] use by authorized laboratories.Testing performed on the ZYB GeneXpert utilizingreal-time RT-PCR.All SARS CoV2 and positive influenza A/B results arereported to [facility]. 08/20/2024 7:41 PM EST 08/20/2024 7:44 PM EST us Generic External Data Provider LAB MICROBIOLOGY - GENERAL ORDERABLES Final Result [facility] [address] [place] [address] [phone] * (ABNORMAL) CBC auto differential (08/20/2024 7:41 PM EST) White Blood Count 6.8 4.8 - 10.8 X10*3/uL [facility] Red Blood Count 4.18(L) 4.20 - 5.50 X10*6/uL [facility] Hemoglobin 12.4 12.0 - 16.0 g/dl [facility] Hematocrit 36.7(L) 37.0 - 47.0 % [facility] Mean Corpuscular Volume 87.8 80.0 - 98.0 fL [facility] Mean Corpuscular Hemoglobin 29.7 27.0 - 33.0 pg [facility] Mean Corpuscular HGB Conc 33.8 31.0 - 35.0 g/dl [facility] Red Cell Distribution Width 12.5 11.0 - 16.0 % [facility] Platelet Count 156(L) 160 - 400 X10*3/uL [facility] Mean Platelet Volume 10.2 9.4 - 12.3 fL [facility] Neutrophils Percent Auto 80.2(H) 45 - 73 % [facility] Imm Gran Pct Auto 0.1 0.0 - 0.4 % [facility] Lymphocytes Percent Auto 9.1(L) 20 - 40 % [facility] Monocytes Percent Auto 7.5 2 - 11 % [facility] Eosinophils Percent Auto 2.8 0 - 4 % [facility] Basophils Percent Auto 0.3 0 - 2 % [facility] NRBC Pct Auto 0.0 0.0 - 0.2 /100WBC [facility] Neutrophils Absolute Auto 5.5 2.0 - 8.3 x10*3/uL [facility] Imm Gran Abs Auto 0.01 0.00 - 0.03 X10*3/uL [facility] Lymphocytes Absolute Auto 0.6(L) 1.2 - 4.9 X10*3/uL [facility] Monocytes Absolute Auto 0.5 0.1 - 1.2 X10*3/uL [facility] Eosinophils Absolute Auto 0.2 0.0 - 0.4 X10*3/uL [facility] Basophils Absolute Auto 0.0 0.0 - 0.2 X10*3/uL [facility] NRBC Abs Auto 0.000 0.0 - 0.012 X10*3/uL [facility] 08/20/2024 7:41 PM EST 08/20/2024 7:44 PM EST [employer] External Data Provider LAB BLOOD ORDERAB LES Final Result Performing Organization Address [facility] Co de Phone Number [facility] [address] [place] [phone] * B Type Natriuretic Peptide (BNP) (08/20/2024 7:41 PM EST) B Type Natriuretic Peptide 34 <100 pg/mL [facility] Comment:For those patients w ho are being treated with Natrecor(nesiritide, recombinant BNP), BNP testing should beperformed at least two hours post treatment in order toensure that only endogenous levels of BNP are detected. 08/20/2024 7:41 PM EST 08/20/2024 7:44 PM EST us Generic External Data Provider LAB BLOOD ORDERAB LES Final Result Performing Organization Address City/[facility]/ZIP Co de Phone Number [facility] [address] [place] [address] [phone] * Magnesium (08/20/2024 7:41 PM EST) [facility] Magnesium 1.9 1.6 - 2.6 mg/dL [facility] 08/20/2024 7:41 PM EST 08/20/2024 7:44 PM EST Generic External Data Provider LAB BLOOD ORDERAB LES Final Result Performing Organization Address [facility] Co de Phone Number [facility] [address] [place] [phone] * Hepatic Function Panel (08/20/2024 7:41 PM EST) [facility] Bilirubin, Total 0.4 0.0 - 1.0 mg/dL [facility] Bilirubin, Direct 0.2 0.0 - 0.5 mg/dL [facility] Aspartate Amino Transferase 21 5 - 31 U/L [facility] Alanine Aminotransferase 24 0 - 31 U/L [facility] Total Protein 6.5 6.5 - 8.0 g/dL [facility] Albumin Level 3.7 3.5 - 5.0 g/dL [facility] Alkaline Phosphatase 78 39 - 117 U/L [facility] 08/20/2024 7:41 PM EST 08/20/2024 7:44 PM EST Generic External Data Provider LAB BLOOD ORDERAB LES Final Result Performing Organization Address [facility] Co de Phone Number [facility] [address] [place] [phone] * (ABNORMAL) Basic Metabolic Panel (08/20/2024 7:41 PM EST) [facility] Sodium 138 135 - 145 mmol/L [facility] Potassium 3.7 3.3 - 5.1 mmol/L [facility] Chloride 104 96 - 108 mmol/L [facility] Carbon Dioxide 27 22 - 29 mmol/L [facility] Anion Gap 11(L) 12 - 20 [facility] Urea Nitrogen (BUN) 12 9 - 16 mg/dL [facility] Creatinine, Serum 0.69 0.5 - 1.4 mg/dL [facility] Creatinine Clr Calc Pharmacy 80.2 [facility] Comment:Provided height and weight: 157.48 cm,73.3 kg.eGFR (calculated from the MDRD study equation) and eCrCl(calculated from the Cockcroft-Gault equation) are based ondifferent parameters and may not yield comparable results.If eCrCl result is absurd, please check patient'sheight/weight. Estimated Glomerular Filt Rate >60 [facility] Comment:Chronic Kidney Disea se: Estimated GFR < 60 mL/min/1.47e9Vegrta Kidney Disease: Estimated GFR < 15 mL/min/1.73m2 Glucose 119(H) 60 - 115 mg/dL [facility] Calcium 8.6 8.4 - 10.2 mg/dL [facility] 08/20/2024 7:41 PM EST 08/20/2024 7:44 PM EST us Generic External Data Provider LAB BLOOD ORDERAB LES Final Result [facility] [address] [place] [phone] * Creatinine, Serum (08/01/2024 10:49 AM EST) Creatinine, Serum 0.74 0.5 - 1.4 mg/dL [facility] Estimated Glomerular Filt Rate >60 [facility] Comment:Chronic Kidney Disea se: Estimated GFR < 60 mL/min/1.80x5Bjtywt Kidney Disease: Estimated GFR < 15 mL/min/1.73m2 08/01/2024 10:4 9 AM EST 08/01/2024 10:49 AM EST us Generic External Data Provider LAB BLOOD ORDERAB LES Final Result Performing Organization Address [facility] Co de Phone Number [facility] [address] [place] [address] [phone] * BUN (Blood Urea Nitrogen) (08/01/2024 10:49 AM EST) Urea Nitrogen (BUN) 13 9 - 16 mg/dL [facility] 08/01/2024 10:4 9 AM EST 08/01/2024 10:49 AM EST Generic External Data Provider LAB BLOOD ORDERAB LES Final Result Performing Organization Address [facility] de Phone Number [facility] [address] [place] [address] [phone] * XR Hand 3+ Views Left (07/21/2024 11:57 PM EST) Anatomical Region Laterality Modality Upper Extremities, Hand Left Radiogra phic Imaging 07/21/2024 11:5 7 PM EST Narrative 07/21/2024 11:59 PM EST ? [facility] ?[address] ?[place] [address] ?XRay Report ? Signed ? Patient: Grover,Nayely ?MR#: [id number] ?? 541 ? : 1960 ?Acct:[id number] ? Age/Sex: 63 / F ?ADM Date: 07/21/24 ? Loc: HO.ED ? Attending Dr: ? Ordering Physician: Janel Pitts MD ?? Date of Service: 07/21/24 ?? Procedure(s): XR hand LT min 3V ?? Accession Number(s): [id number] ? cc: Joyce Tapia MD; Janel Pitts [...] in OV> ? 07/21/24 2358 ? DD/ ? TD/TT: 07/21/242356 ? Station Baggage Agent: ? Procedure Note Javed, Image - 07/22/[address] [address] XRay Report Signed Patient: Nayely GroverMR#: [id number] 541 : 1960Acct:[id number] Age/Sex: 63 / FADM Date: 07/21/24 Loc: HO.ED Attending Dr: Ordering Physician: Janel Pitts MD Date of Service: 07/21/24 Procedure(s): XR hand LT min 3V Accession Number(s): [id number] cc: Joyce Tapia MD; Janel Pitts MD [...] in OV> 07/21/242357 DD/ 56 TD/TT: 07/21/242356 Station Baggage Agent: [facility] External Provider IMG XR PROCEDURES Edited Result - Final * Hematoxylin and Eosin Stain (07/18/2024 8:13 AM EST) 07/18/2024 8:13 AM EST 07/18/2024 9:01 AM EST [facility] - 07/20/2024 9:46 AM EST ----- ------- Name: Nayely Grover ?Age/Sex: 63/F ? : 1960 Unit#: [id number] ?? Attend Dr: Donald Pa MD ?Re07/18/24 ?Status: DEP SDC ? Location: HO.SSS ?Disch: ? ----- ------- SPEC : [id number] ?RECD: 07/18/24 ? STATUS: ??SOUT ? REQ NUM: [id number] ? JOSE: 07/18/24 ? SUBM DR: Donald [...] Grover ?Age/Sex: 63/F ? : 1960 Unit#: [id number] ?? Attend Dr: Donald Pa MD ?Re07/18/24 ?Status: DEP SDC ? Location: HO.SSS ?Disch: ? ----- ------- SPEC : [id number] ?RECD: 07/18/24 ? STATUS: ??SOUT ? REQ NUM: [id number] ? JOSE: 07/18/24 ? SUBM DR: Donald Pa MD ? ENTERED: ??07/18/24 ?SP TYPE: Surgical ? OTHR DR: Joyce Tapia MD ? ORDERED: ??HE Stain/9, Gross Micro L4/3, IHC, Special st. 2, H. pylori, AB/PAS ? Copies To: ?? Joyce Tpaia MD ?? [facility] ?? [address] [facility] [address] ?? [place] [address] ?? [phone] ?? Donald Pa MD ?? [facility] ?? [address] ?? [place] [address] ?? [phone] ----- ------- Signed (signature on file) Ayan Romero MD 07/20/24 0946 ? ----- ------- ? END OF REPORT ? us Generic External Data Provider LAB BLOOD ORDERAB LES Final Result [facility] [address] [facility] [place] [address] [phone] * (ABNORMAL) Glucose, Whole Blood (07/18/2024 7:34 AM EST) [facility] Glucose, Whole Blood 141(H) 60 - 115 mg/dL [facility] Comment:METER #: [id number] 07/18/2024 7:34 AM EST 07/18/2024 7:38 AM EST us Generic External Data Provider LAB BLOOD ORDERAB LES Final Result Performing Organization Address [facility]/ZIP Co de Phone Number [facility] [address] [place] [address] [phone] * (ABNORMAL) Hemoglobin A1c (07/09/2024 8:59 AM EST) Hemoglobin A1c 6.5(H) <6.0 % [facility] Comment:Hemoglobin A1C Refer ence Range Adults: 4.8 - 6.0 % Non diabetic: < 6.0 % Goal: < 7.0 %Additional Action Suggested: > 8.0 %Note: Hemoglobin A1c results are invalid for patients with abnormal amounts of HbF. Blood transfusions may impact the HbA1c concentration in the patient sample. Estimated Average Glucose 140 mg/dL [facility] Comment:eAG = Estimated ave rage glucose which is %A1C expressed asaverage glucose, using the formula of the Z8F-NocusopYihqkmg Glucose study (ADAG), Diabetes Care, Vol.31,#8,Feb. 2007 Blood Venous blood specimen / Unknown 07/09/2024 8:59 AM EST 07/09/2024 2:20 PM EST us Joyce Tapia MD LAB BLOOD ORDERABLES Final Resul t Performing Organization Address [facility] Co de Phone Number [facility] [address] [place] [address] [phone] * BI Mammogram Screening Tomosynthesis Bilateral (05/28/2023 8:58 AM EST) Anatomical Region Laterality Modality Breast Bilateral Mammography 05/28/2023 8:58 AM EST Narrative 06/03/2023 8:41 AM EST ? [facility] ? [address] ?[place] [address] ? Mammography Report ? Signed ? Patient: Grover,Nayely ?MR#: [id number] ?? 541 ? : 1960 ?Acct:[id number] ? Age/Sex: 62 / F ?ADM Date: 11/25/23 ? Loc: HO.MAMMO ? Attending Dr: Joyce Taipa MD ? Ordering Physician: Joyce Tapia MD ?Results: 1Negati ?? ve ? Date of Service: 05/28/23 ?Follow Up: 1 Year From Orig ?? inal Mammogram ? Procedure(s): MM tomosynthesis screening BI ?? Accession Number(s): [id number] ? cc: Joyce Tapia MD ? EXAMINATION: [...] 06/03/23836 ? DD/ 7 ? TD/TT: ? Station Baggage Agent: ? Procedure Note Donfarhanainterpreter, Image - 06/03/2023 [facility] [address] [place] [address] Mammography Report Signed Patient: Nayely GroverMR#: [id number] 541 : 1960Acct:[id number] Age/Sex: 62 / FADM Date: 05/28/23 Loc: HORegisMAMMO Attending Dr: Joyce Tpaia MD Ordering Physician: Joyce Tapia MDResults: 1Negati ve Date of Service: 05/28/23Follow Up: 1 Year From Orig inal Mammogram Procedure(s): MM tomosynthesis screening BI Accession Number(s): [id number] cc: Joyce Tapia MD EXAMINATION: MM SCREENING [...] in OV> 06/03/23 0837 DD/ 0858 TD/TT: Station Baggage Agent: Joyce Tapia MD IMG BI PROCEDURES Final Result * THINPREP PAP (03/31/2021 9:06 AM EDT) [...] historic and ?? current clinical information. ?? Hydroelectric Machinery Mechanic Helper : SEE COMMENT [facility] Comment: JXM, CT(ASCP) CT screening location: [address] ??[address] Interpretation/R esult: Negative for intraepithelial lesion or [...] provided 03/31/2021 9:06 AM EDT us Noa MARINO LAB PATHOLOGY ORDERABLES Final Result [facility] [address] * HPV mRNA E6/E7 (03/31/2021 9:06 AM EDT) HPV nRNA E6/E7 Not Detected Not Detected [facility] Comment: Methodology: Chicle Grinder Feeder-Mediated Amplification This assay detects E6/E7 viral messenger RNA (mRNA) from 14 high-risk HPV types (16,18,31,33,35,39,45,51,52,56,58,59,66,68). ? The analytical performance characteristics of this assay have been determined by [employer]. The modifications have not been cleared or approved by the FDA. This assay has been validated pursuant to the CLIA regulations and is used for clinical purposes. ?? For additional information, please refer to http://education.Aircare/faq/FZO785q7 (This link if provided for information/ educational purposes only.) 03/31/2021 9:06 AM EDT Noa De Santiago CNM LAB BLOOD ORDERABLES Patt kelley Result [facility] [address] * Colonoscopy (02/20/2015) Colonoscopy Normal Normal Narrative Zohra Benavidez - 02/20/2015 Repeat in 10 year Historical Provider HEALTH MAINTENANCE Final Result from Last 3 Months or Most Recently Relevant to Health Maintenance Insurance [facility] Care Teams Senior Financial Reporting Analyst Relationship Specialty Start Date End Date Joyce Tapia MD [address] [place] [phone] PCP - General Family Medicine 06/19/12
--- OUTSIDE RECORDS SUMMARY | 2024-10-15 08:11 | XMS_ITS | Encounter Summary ---
Author Organization [employer] Address [address] 7[address] [place] [address] Care Team Providers Care Postmaster Name Role Phone Joyce Tapia MD Primary Care Provider [phone] Reason for Visit * Reason Onset Date Comments Med Refill 09/11/2024 Encounter Details Date Type Department Care Team (Late st Contact Info) Description 09/11/2024 Telephone [facility] MEDICINE [address] [place] [address] Joyce Tapia MD [address] [place] [address] Med Refill Social History Tobacco Use Types [...] immediate release tablet To be sent to: [facility]/pharmacy #[id number] [place] - [address] [facility] documented in this encounter Plan of Treatment Upcoming Encounters Date Type Department Care Team ([facility] st Contact Info) Description 10/18/2024 10:00 AM EDT Clinical Support [facility] MED & PEDS [address] [place] [address] Katherine Casper, RN [address] [place] [address] 10/31/2024 10:00 AM EDT Medication Management [facility] [address] [place] [address] Cristal Muhammad, PharmD [address] [place] [address] documented as of this encounter Visit Diagnoses Not on filedocumented in this encounter Care Teams Postmaster Relationship Specialty Start Date End Date Joyce Tapia MD [address] [place] [address] PCP - General Family Medicine 06/19/12 documented as of this encounter
--- OUTSIDE RECORDS SUMMARY | 2024-10-15 08:11 | XMS_ITS ---
Author Organization [employer] Address [address] [place] [address] 7 [place] [address] Care Team Providers Care Sharepoint Administrator Name Role Phone Joyce Tapia MD Primary Care Provider [phone] ACID TREATER Status:Enrolled (Active) Start date:10/22/2022 Enrollment date:10/22/2022 Case Team Name Relationship Phone Katherine Casper RN Registered Nurse(Responsible S taff) Continued Care and Services Coordination
--- OUTSIDE RECORDS SUMMARY | 2024-10-15 08:11 | XMS_ITS | Encounter Summary ---
Author Organization [employer] Address [address] 7t [place] [address] Care Team Providers Care Ticket Seller Name Role Phone Joyce Tapia MD Primary Care Provider [phone] Reason for Visit * Reason Onset Date Comments Appt 08/09/2024 Encounter Details Date Type Department Care Team ([facility] st Contact Info) Description 08/09/2024 Telephone [facility] MEDICINE [address] [place], [place] [phone] Joyce Tapia MD [address] [place], [place] [phone] Appt Social History Tobacco Use Types Packs/Day [...] can be changed for a phone visit. [phone] documented in this encounter Plan of Treatment Upcoming Encounters Date Type Department Care Team (Late st Contact Info) Description 10/18/2024 10:00 AM EDT Clinical Support [facility] MED & PEDS [address] [place] [address] Katherine Casper, MAKEDA [address] [place] [address] 10/31/2024 10:00 AM EDT Medication Management [facility] [address] [place] [address] Cristal Muhammad, PharmD [address] [place] [address] documented as of this encounter Visit Diagnoses Not on filedocumented in this encounter Care Teams Ticket Seller Relationship Specialty Start Date End Date Joyce Tapia MD [address] [place] [address] PCP - General Family Medicine 06/19/12 documented as of this encounter
--- OUTSIDE RECORDS SUMMARY | 2024-10-15 08:11 | XMS_ITS | Encounter Summary ---
Author Organization [employer] Address [address] [facility] 7t [place] [address] Care Team Providers Care Final Assembler Boat Name Role Phone Joyce Tapia MD Primary Care Provider [phone] Reason for Visit * Reason Onset Date Comments Med Refill 10/24/2023 Encounter Details Date Type Department Care Team ([facility] st Contact Info) Description 10/24/2023 Telephone [facility] [address] [place], [place] [phone] Joyce Tapia MD [address] [place] [address] Med Refill Social History Tobacco Use Types [...] immediate release tablet To be sent to: [facility] [place] - [address] [facility] documented in this encounter Plan of Treatment Upcoming Encounters Date Type Department Care Team (Late st Contact Info) Description 10/18/2024 10:00 AM EDT Clinical Support [facility] MED & PEDS [address] [place] [address] Katherine Casper, RN [address] [place], [place] 10/31/2024 10:00 AM EDT Medication Management [facility] MED & PEDS [address] [place] [address] Cristal Muhammad, BobD [address] [place] [address] documented as of this encounter Visit Diagnoses Not on filedocumented in this encounter Care Teams Final Assembler Boat Relationship Specialty Start Date End Date Joyce Tapia MD [address] [place] [address] PCP - General Family Medicine 06/19/12 documented as of this encounter
--- OUTSIDE RECORDS SUMMARY | 2024-10-15 08:12 | XMS_ITS | Encounter Summary ---
Author Organization [employer] Address [address] [facility] 7t [place] [address] Care Team Providers Care Basket Grader Name Role Phone Joyce Tapia MD Primary Care Provider [phone] Reason for Visit * Reason Onset Date Comments Med Refill 08/01/2024 Encounter Details Date Type Department Care Team (Late st Contact Info) Description 08/01/2024 Refill [facility] MEDICINE [address] [place] [address] Emerson Keith MD [address] [place] [address] Status post surgical removal of nail matrix [...] Encounters Date Type Department Care Team ([facility] st Contact Info) Description 10/18/2024 10:00 AM EDT Clinical Support [facility] MED & PEDS [address] [place] [address] Katherine Casper, RN [address] [place] [address] 10/31/2024 10:00 AM EDT Medication Management [facility] MED & PEDS [address] [place] [address] Cristal Muhammad PharmD [address] [place] [address] documented as of this encounter Visit Diagnoses Diagnosis Status post surgical removal of nail matrix of toe of left foot documented in this encounter Care Teams Basket Grader Relationship Specialty Start Date End Date Joyce Tapia MD [address] [place] [address] PCP - General Family Medicine 06/19/12 documented as of this encounter
--- OUTSIDE RECORDS SUMMARY | 2024-10-15 08:12 | XMS_ITS | Encounter Summary ---
Author Organization [facility] Address [address] [facility] 7t [place] [address] Care Team Providers Care Supervisor Electronics Assembly Name Role Phone Joyce Tapia MD Primary Care Provider Reason for Visit * Reason Comments Med Refill Encounter Details Date Type Department Care Team (Late st Contact Info) Description 10/03/2023 Refill [facility] MED & PEDS [address] [place] [address] Joyce Tapia MD 505 [place] [address] Arthropathy Social History Tobacco Use Types Packs/Day [...] Description 10/18/2024 10:00 AM EDT Clinical Support [facility]ED[facility] [address] [place] [address] Katherine Casper RN [address] [place] [address] 10/31/2024 10:00 AM EDT Medication Management [facility] MED & PEDS [address] [place] [address] Cristal Muhammad, BobD [address] [place] [address] documented as of this encounter Visit Diagnoses Diagnosis Arthropathy Unspecified arthropathy, site unspecified documented in this encounter Care Teams Supervisor Electronics Assembly Relationship Specialty Start Date End Date Joyce Tapia MD [address] [place] [address] PCP - General Family Medicine 06/19/12 documented as of this encounter
--- OUTSIDE RECORDS SUMMARY | 2024-10-15 08:12 | XMS_ITS | Encounter Summary ---
Author Organization [employer] Address [address] [place] [address] Care Team Providers Care Hog Cutter Name Role Phone Joyce Tapia MD Primary Care Provider [phone] Reason for Visit * Reason Onset Date Comments Med Refill 06/05/2024 Encounter Details Date Type Department Care Team (Late st Contact Info) Description 06/05/2024 Refill [facility] MEDICINE [address] [place] [address] Joyce Tapia MD [address] [place] [address] Status post surgical removal of nail matrix [...] [facility] MED & PEDS [address] [place] [address] Katherine Casper, RN [address] [place] [address] 10/31/2024 10:00 AM EDT Medication Management [facility] [address] [place] [address] Cristal Muhammad, PharmD [address] [place] [address] documented as of this encounter Visit Diagnoses Diagnosis Status post surgical removal of nail matrix of toe of left foot documented in this encounter Care Teams Hog Cutter Relationship Specialty Start Date End Date Joyce Tapia MD [address] [place] [address] PCP - General Family Medicine 06/19/12 documented as of this encounter
--- OUTSIDE RECORDS SUMMARY | 2024-10-15 08:12 | XMS_ITS | Encounter Summary ---
Author Organization [employer] Address [address] [facility] 7t [place] [address] Care Team Providers Care Mixer Operator Tablets Name Role Phone Joyce Tapia MD Primary Care Provider [phone] Reason for Visit * Reason Onset Date Comments Med Refill 07/12/2024 Encounter Details Date Type Department Care Team (Late st Contact Info) Description 07/12/2024 Refill [facility]EDS [address] [place], [place] [phone] Joyce Tapia MD [address] [place] [address] Status post surgical removal of nail matrix [...] Upcoming Encounters Date Type Department Care Team ([facility] st Contact Info) Description 10/18/2024 10:00 AM EDT Clinical Support [facility] MED & PEDS [address] [place] [address] Katherine Casper, RN [address] [place] [address] 10/31/2024 10:00 AM EDT Medication Management [facility] MED & PEDS [address] [place] [address] Cristal Muhammad PharmD [address] [place] [address] documented as of this encounter Visit Diagnoses Diagnosis Status post surgical removal of nail matrix of toe of left foot documented in this encounter Care Teams Mixer Operator Tablets Relationship Specialty Start Date End Date Joyce Tapia MD [address] [place] [address] PCP - General Family Medicine 06/19/12 documented as of this encounter
--- OUTSIDE RECORDS SUMMARY | 2024-10-15 08:12 | XMS_ITS | Encounter Summary ---
Author Organization [facility] Address [address] [facility] 7t [place] [address] Care Team Providers Care Office Manager Receptionist Name Role Phone Joyce Tapia MD Primary Care Provider [phone] Encounter Details Date Type Department Care Team (Late Contact Info) Description 05/24/2023 Abstract [facility] MEDICINE [address] [place], [place] [phone] Zohra Benavidez Social History Tobacco Use Types [...] [facility] MED & PEDS [address] [place] [address] Katherine Casper, MAKEDA [address] [place] [address] 10/31/2024 10:00 AM EDT Medication Management [facility] MED & PEDS [address] [place] [address] Cristal Muhammad, PharmD [address] [place] [address] documented as of this encounter Procedures Procedure Name Priority Date/Time Associated Diagnosis Comments COLONOSCOPY Routine 02/20/2015 documented in this encounter Results * Colonoscopy (02/20/2015) Colonoscopy Normal Normal Narrative Zohra Benavidez - 02/20/2015 Repeat in 10 year Historical Provider HEALTH MAINTENANCE Final Result documented in this encounter Visit Diagnoses Not on filedocumented in this encounter Care Teams Office Manager Receptionist Relationship Specialty Start Date End Date Joyce Tapia MD [address] [place] [address] PCP - General Family Medicine 06/19/12 documented as of this encounter
--- OUTSIDE RECORDS SUMMARY | 2024-10-15 08:12 | XMS_ITS | Encounter Summary ---
Author Organization [employer] Address [address] [facility] [address] [address] 7t [place] [address] Care Team Providers Care Web Search Evaluator Name Role Phone Joyce Tapia MD Primary Care Provider [phone] Reason for Visit * Reason Onset Date Comments Med Refill 02/28/2024 Encounter Details Date Type Department Care Team (Late st Contact Info) Description 02/28/2024 Telephone [facility] MEDICINE 230 [place] [address] Joyce Tapia MD [address] [place], [place] [phone] Med Refill Social History Tobacco Use Types [...] immediate release tablet To be sent to: [facility] - [place], [place] - [address] [place] [address] documented in this encounter Plan of Treatment Upcoming Encounters Date Type Department Care Team (Late st Contact Info) Description 10/18/2024 10:00 AM EDT Clinical Support [facility] MED & PEDS 505 [place] [address] Katherine Casper, RN 505 [place] [address] 10/31/2024 10:00 AM EDT Medication Management [facility] MED & PEDS 505 [place] [address] Cristal Muhammad, PharmD 230 [place] [address] documented as of this encounter Visit Diagnoses Not on filedocumented in this encounter Care Teams Web Search Evaluator Relationship Specialty Start Date End Date Joyce Tapia MD 230 [place] [address] PCP - General Family Medicine 06/19/12 documented as of this encounter
--- OUTSIDE RECORDS SUMMARY | 2024-10-15 08:12 | XMS_ITS | Encounter Summary ---
Author Organization [employer] Address [address] [facility] 7t [place] [address] Care Team Providers Care Search Manager Name Role Phone Joyce Tapia MD Primary Care Provider [phone] Reason for Visit * Reason Onset Date Comments Med Refill 05/28/2024 Encounter Details Date Type Department Care Team ([facility] st Contact Info) Description 05/28/2024 Refill [facility] MED & PEDS 505 [place], [place] [phone] Joyce Tapia MD 505 [place] [address] Status post surgical removal of nail matrix [...] Upcoming Encounters Date Type Department Care Team ([facility] st Contact Info) Description 10/18/2024 10:00 AM EDT Clinical Support [facility] MED & PEDS 505 [place] [address] Katherine Casper, RN 505 [place] [address] 10/31/2024 10:00 AM EDT Medication Management [facility] MED & PEDS 505 [place] [address] Cristal Muhammad PharmD 230 [place] [address] documented as of this encounter Visit Diagnoses Diagnosis Status post surgical removal of nail matrix of toe of left foot documented in this encounter Care Teams Search Manager Relationship Specialty Start Date End Date Joyce Tapia MD 230 [place] [address] PCP - General Family Medicine 06/19/12 documented as of this encounter
--- OUTSIDE RECORDS SUMMARY | 2024-10-15 08:12 | XMS_ITS | Encounter Summary ---
Author Organization [employer] Address [address] 7t [place] [address] Care Team Providers Care Financial Rep Name Role Phone Joyce Tapia MD Primary Care Provider [phone] Reason for Visit * Reason Onset Date Comments Med Refill 07/13/2024 Encounter Details Date Type Department Care Team (Late st Contact Info) Description 07/13/2024 Refill [facility] MEDICINE 230 [place], [place] [phone] Amber Palacio MD 230 [place], [place] [phone] Smoker Social History Tobacco Use Types Packs/Day [...] [facility] 505 [place] [address] Katherine Casper, RN 505 [place] [address] 10/31/2024 10:00 AM EDT Medication Management [facility] MED & PEDS 505 [place] [address] Cristal Muhammad, PharmD 230 [place] [address] documented as of this encounter Visit Diagnoses Diagnosis Smoker Tobacco use disorder documented in this encounter Care Teams Financial Rep Relationship Specialty Start Date End Date Joyce Tapia MD 230 [place] [address] PCP - General Family Medicine 06/19/12 documented as of this encounter
--- OUTSIDE RECORDS SUMMARY | 2024-10-15 08:12 | XMS_ITS | Encounter Summary ---
Author Organization [employer] Address [address] [facility] [address] 7t [place] [address] Care Team Providers Care Hospital Admissions Clerk Name Role Phone Joyce Tapia MD Primary Care Provider [phone] Reason for Visit * Reason Onset Date Comments Med Refill 04/25/2024 Encounter Details Date Type Department Care Team ([facility] st Contact Info) Description 04/25/2024 Telephone [facility] MEDICINE 230 [place] [address] Joyce Tapia MD [address] [place], [place] [phone] Med Refill Social History Tobacco Use Types [...] (Roxicodone) 5 MG To be sent to: [facility] documented in this encounter Plan of Treatment Upcoming Encounters Date Type Department Care Team (Late st Contact Info) Description 10/18/2024 10:00 AM EDT Clinical Support [facility] MED & PEDS 505 [place] [address] Katherine Casper, MAKEDA 505 [place] [address] 10/31/2024 10:00 AM EDT Medication Management [facility] MED & PEDS 505 [place] [address] Cristal Muhammad, PharmD 230 [place] [address] documented as of this encounter Visit Diagnoses Not on filedocumented in this encounter Care Teams Hospital Admissions Clerk Relationship Specialty Start Date End Date Joyce Tapia MD 230 [place] [address] PCP - General Family Medicine 06/19/12 documented as of this encounter
--- OUTSIDE RECORDS SUMMARY | 2024-10-15 08:12 | XMS_ITS | Encounter Summary ---
Author Organization [employer] Address [address] [facility] [address] 7t [place] [address] Care Team Providers Care Scientific Systems Analyst Name Role Phone Joyce Tapia MD Primary Care Provider [phone] Reason for Visit * Reason Onset Date Comments Med Refill 05/21/2024 Encounter Details Date Type Department Care Team ([facility] st Contact Info) Description 05/21/2024 Refill [facility] MED & PEDS 505 [place], [place] [phone] Joyce Tapia MD 505 [place] [address] Social History Tobacco Use Types Packs/Day Years [...] Description 10/18/2024 10:00 AM EDT Clinical Support [facility] MED & PEDS 505 [place] [address] Katherine Casper, MAKEDA 505 [place] [address] 10/31/2024 10:00 AM EDT Medication Management [facility] MED & PEDS 505 [place] [address] Cristal Muhammad, PharmD 230 [place] [address] documented as of this encounter Visit Diagnoses Not on filedocumented in this encounter Care Teams Scientific Systems Analyst Relationship Specialty Start Date End Date Joyce Tapia MD 230 [place] [address] PCP - General Family Medicine 06/19/12 documented as of this encounter
--- OUTSIDE RECORDS SUMMARY | 2024-10-15 08:12 | XMS_ITS | Encounter Summary ---
Author Organization [employer] Address [address] [facility] 7t [place] [address] Care Team Providers Care Gauge Checker Name Role Phone Joyce Tapia MD Primary Care Provider [phone] Reason for Visit * Reason Comments Med Refill Encounter Details Date Type Department Care Team (Late st Contact Info) Description 10/25/2022 Refill [facility] MED & PEDS 505 [place], [place] [phone] Jenny Schmidt MD 505 [place] [address] Status post surgical removal of nail matrix [...] Department Care Team (Late Contact Info) Description 10/18/2024 10:00 AM EDT Clinical Support [facility] MED & PEDS 505 [place] [address] Katherine Casper, RN 505 [place] [address] 10/31/2024 10:00 AM EDT Medication Management [facility] MED & PEDS 505 [place] [address] Cristal Muhammad PharmD 230 [place] [address] documented as of this encounter Visit Diagnoses Diagnosis Status post surgical removal of nail matrix of toe of left foot documented in this encounter Care Teams Gauge Checker Relationship Specialty Start Date End Date Joyce Tapia MD 230 [place] [address] PCP - General Family Medicine 06/19/12 documented as of this encounter
--- OUTSIDE RECORDS SUMMARY | 2024-10-15 08:12 | XMS_ITS | Encounter Summary ---
Author Organization [employer] [facility] Address [address] [facility] 7t [place] [address] Care Team Providers Care Global Account Manager Name Role Phone Joyce Tapia MD Primary Care Provider [phone] Reason for Visit * Reason Comments Med Refill Encounter Details Date Type Department Care Team (Late st Contact Info) Description 06/07/2023 Refill [facility] MED & PEDS 505 [place], [place] [phone] Ev Lewis, ANP 230 [place] [address] Status post surgical removal of nail matrix [...] Description 10/18/2024 10:00 AM EDT Clinical Support [facility] MED & PEDS 505 [place] [address] Katherine Casper, RN 505 [place] [address] 10/31/2024 10:00 AM EDT Medication Management [facility] MED & PEDS 505 [place] [address] Cristal Muhammad PharmD 230 [place] [address] documented as of this encounter Visit Diagnoses Diagnosis Status post surgical removal of nail matrix of toe of left foot documented in this encounter Care Teams Global Account Manager Relationship Specialty Start Date End Date Joyce Tapia MD 230 [place] [address] PCP - General Family Medicine 06/19/12 documented as of this encounter
--- OUTSIDE RECORDS SUMMARY | 2024-10-15 08:12 | XMS_ITS | Encounter Summary ---
Author Organization [employer] Address [address] [facility] 7t [place] [address] Care Team Providers Care Pre Billing Specialist Name Role Phone Joyce Tapia MD Primary Care Provider [phone] Reason for Visit * Reason Onset Date Comments Med Refill 07/27/2024 Encounter Details Date Type Department Care Team (Late st Contact Info) Description 07/27/2024 Refill [facility] MEDICINE 230 [place] [address] Emerson Keith MD 505 [place] [address] Status post surgical removal of nail matrix [...] Upcoming Encounters Date Type Department Care Team ([facility] st Contact Info) Description 10/18/2024 10:00 AM EDT Clinical Support [facility] MED & PEDS 505 [place] [address] Katherine Casper, RN 505 [place] [address] 10/31/2024 10:00 AM EDT Medication Management [facility] MED & PEDS 505 [place] [address] Cristal Muhammad PharmD 230 [place] [address] documented as of this encounter Visit Diagnoses Diagnosis Status post surgical removal of nail matrix of toe of left foot documented in this encounter Care Teams Pre Billing Specialist Relationship Specialty Start Date End Date Joyce Tapia MD 230 [place] [address] PCP - General Family Medicine 06/19/12 documented as of this encounter
--- OUTSIDE RECORDS SUMMARY | 2024-10-15 08:12 | XMS_ITS | Encounter Summary ---
Author Organization [employer] [facility] Address [address] [facility] 7t [place] [address] Care Team Providers Care Automatic Machines Supervisor Name Role Phone Joyce Tapia MD Primary Care Provider [phone] Reason for Visit * Reason Comments Med Refill Encounter Details Date Type Department Care Team (Late st Contact Info) Description 07/29/2023 Refill [facility] MEDICINE 230 [place], [place] [phone] Joyce Tapia MD 505 [place] [address] Status post surgical removal of nail matrix [...] Description 10/18/2024 10:00 AM EDT Clinical Support [facility] MED & PEDS 505 [place] [address] Katherine Casper RN 505 [place], [place] [phone] 10/31/2024 10:00 AM EDT Medication Management [facility] MED & PEDS 505 [place] [address] Cristal Muhammad PharmD 230 [place] [address] documented as of this encounter Visit Diagnoses Diagnosis Status post surgical removal of nail matrix of toe of left foot documented in this encounter Care Teams Automatic Machines Supervisor Relationship Specialty Start Date End Date Joyce Tapia MD 230 [place] [address] PCP - General Family Medicine 06/19/12 documented as of this encounter
--- OUTSIDE RECORDS SUMMARY | 2024-10-15 08:12 | XMS_ITS | Encounter Summary ---
Author Organization [facility] Address [address] [facility] 7t [place] [address] Care Team Providers Care Shadow Graph Weight Operator Name Role Phone Joyce Tapia MD Primary Care Provider [phone] Reason for Visit * Reason Comments Med Refill Encounter Details Date Type Department Care Team (Late st Contact Info) Description 06/06/2023 Refill [facility] MED & PEDS 505 [place], [place] [phone] Ev Lewis, ANP 230 [place] [address] Status post surgical removal of nail matrix [...] Description 10/18/2024 10:00 AM EDT Clinical Support [facility] MED & PEDS 505 [place] [address] Katherine Casper, RN 505 [place] [address] 10/31/2024 10:00 AM EDT Medication Management [facility] MED & PEDS 505 [place] [address] Cristal Muhammad PharmD 230 [place] [address] documented as of this encounter Visit Diagnoses Diagnosis Status post surgical removal of nail matrix of toe of left foot documented in this encounter Care Teams Shadow Graph Weight Operator Relationship Specialty Start Date End Date Joyce Tapia MD 230 [place] [address] PCP - General Family Medicine 06/19/12 documented as of this encounter
--- OUTSIDE RECORDS SUMMARY | 2024-10-15 08:12 | XMS_ITS | Encounter Summary ---
Author Organization [employer] Address [address] [facility] 7t [place] [address] Care Team Providers Care Piano Regulator Name Role Phone Joyce Tapia MD Primary Care Provider [phone] Reason for Visit * Reason Comments Med Refill Encounter Details Date Type Department Care Team (Late Contact Info) Description 10/11/2023 Refill [facility] MEDICINE 230 [place], [place] [phone] Ayden Orellana MD 505 [place] [address] Status post surgical removal of nail matrix [...] [facility] MED & PEDS 505 [place] [address] Katherine Casper RN 505 [place], [place] [phone] 10/31/2024 10:00 AM EDT Medication Management [facility] MED & PEDS 505 [place] [address] Cristal Muhammad, Deonte 230 [place], [place] [phone] documented as of this encounter Visit Diagnoses Diagnosis Status post surgical removal of nail matrix of toe of left foot documented in this encounter Care Teams Piano Regulator Relationship Specialty Start Date End Date Joyce Tapia MD 230 [place] [address] PCP - General Family Medicine 06/19/12 documented as of this encounter
--- OUTSIDE RECORDS SUMMARY | 2024-10-15 08:12 | XMS_ITS | Encounter Summary ---
Author Organization [employer] Address [address] 7[address] [place] [address] Care Team Providers Care Clinching Machine Operator Name Role Phone Joyce Tapia MD Primary Care Provider [phone] Reason for Visit * Reason Onset Date Comments Med Refill 05/08/2024 Encounter Details Date Type Department Care Team (Late st Contact Info) Description 05/08/2024 Refill [facility] MEDICINE 230 [place] [address] Joyce Tapia MD [address] [place] [address] Muscle spasm Social History Tobacco Use Types [...] [facility] MED & PEDS 505 [place] [address] Katherine Casper, MAKEDA 505 [place] [address] 10/31/2024 10:00 AM EDT Medication Management [facility] MED & PEDS 505 [place] [address] Cristal Muhammad, PharmD 230 [place] [address] documented as of this encounter Visit Diagnoses Diagnosis Muscle spasm Spasm of muscle documented in this encounter Care Teams Clinching Machine Operator Relationship Specialty Start Date End Date Joyce Tapia MD 230 [place] [address] PCP - General Family Medicine 06/19/12 documented as of this encounter
--- OUTSIDE RECORDS SUMMARY | 2024-10-15 08:12 | XMS_ITS | Encounter Summary ---
Author Organization [employer] Address [address] [facility] [facility] [address] 7t [place] [address] Care Team Providers Care Engraver Hand Soft Metals Name Role Phone Joyce Tapia MD Primary Care Provider [phone] Reason for Visit * Reason Onset Date Comments Med Refill 07/13/2024 Encounter Details Date Type Department Care Team ([facility] st Contact Info) Description 07/13/2024 Refill [facility] MED & PEDS 505 [place], [place] [phone] Joyce Tapia MD 505 [place] [address] Social History Tobacco Use Types Packs/Day Years [...] [facility] MED & PEDS 505 [place] [address] Katherine Casper, MAKEDA 505 [place] [address] 10/31/2024 10:00 AM EDT Medication Management [facility] MED & PEDS 505 [place] [address] Cristal Muhammad, PharmD 230 [place] [address] documented as of this encounter Visit Diagnoses Not on filedocumented in this encounter Care Teams Engraver Hand Soft Metals Relationship Specialty Start Date End Date Joyce Tapia MD 230 [place] [address] PCP - General Family Medicine 06/19/12 documented as of this encounter
--- OUTSIDE RECORDS SUMMARY | 2024-10-15 08:13 | XMS_ITS | Encounter Summary ---
Author Organization [employer] Address [address] [facility] 7t [place] [address] Care Team Providers Care Cattle Alley Worker Name Role Phone Joyce Tapia MD Primary Care Provider [phone] Reason for Visit * Reason Onset Date Comments Med Refill 09/26/2024 Encounter Details Date Type Department Care Team (Late st Contact Info) Description 09/26/2024 Refill [facility] MED & PEDS 505 [place], [place] [phone] Joyce Tapia MD 505 [place] [address] Status post surgical removal of nail matrix [...] [facility] MED & PEDS 505 [place] [address] Katherine Casper, RN 505 [place] [address] 10/31/2024 10:00 AM EDT Medication Management [facility] MED & PEDS 505 [place] [address] Cristal Muhammad PharmD 230 [place] [address] documented as of this encounter Visit Diagnoses Diagnosis Status post surgical removal of nail matrix of toe of left foot documented in this encounter Additional Health Concerns Assessment Noted Time PHQ-9 Depression Total Score: 7 09/15/19 25 9:02 AM EDT documented as of this encounter Care Teams Cattle Alley Worker Relationship Specialty Start Date End Date Joyce Tapia MD 230 [place] [address] PCP - General Family Medicine 06/19/12 documented as of this encounter
--- OUTSIDE RECORDS SUMMARY | 2024-10-15 08:13 | XMS_ITS | Encounter Summary ---
Author Organization [employer] Address [address] [facility] 7t [place] [address] Care Team Providers Care Welder Repair Name Role Phone Joyce Tapia MD Primary Care Provider [phone] Reason for Visit * Reason Onset Date Comments Med Refill 10/15/2024 Encounter Details Date Type Department Care Team (Late st Contact Info) Description 10/15/2024 Refill [facility] MEDICINE 230 [place] [address] Emerson Keith MD 505 [place] [address] Status post surgical removal of nail matrix [...] [facility] MED & PEDS 505 [place] [address] Katherine Casper, RN 505 [place] [address] 10/31/2024 10:00 AM EDT Medication Management [facility] MED & PEDS 505 [place] [address] Cristal Muhammad PharmD 230 [place] [address] documented as of this encounter Visit Diagnoses Diagnosis Status post surgical removal of nail matrix of toe of left foot documented in this encounter Additional Health Concerns Assessment Noted Time PHQ-9 Depression Total Score: 7 09/15/19 25 9:02 AM EDT documented as of this encounter Care Teams Welder Repair Relationship Specialty Start Date End Date Joyce Tapia MD 230 [place] [address] PCP - General Family Medicine 06/19/12 documented as of this encounter
--- OUTSIDE RECORDS SUMMARY | 2024-10-15 08:13 | XMS_ITS | Encounter Summary ---
Author Organization [employer] Address 75 [facility] 7t [place] [address] Care Team Providers Care Facility Engineer Name Role Phone Joyce Tapia MD Primary Care Provider [phone] Encounter Details Date Type Department Care Team ([facility] Contact Info) Description 10/26/2022 Orders Only [facility] MED & PEDS 505 [place] [address] Emerson Keith MD 505 [place] [address] Social History Tobacco Use Types Packs/Day Years [...] Upcoming Encounters Date Type Department Care Team ([facility] Contact Info) Description 10/18/2024 10:00 AM EDT Clinical Support [facility] MED & PEDS 505 [place] [address] Katherine Casper RN 505 [place] [address] 10/31/2024 10:00 AM EDT Medication Management [facility] MED & PEDS 505 [place] [address] Cristal Muhammad PharmD 230 [place] [address] documented as of this encounter Visit Diagnoses Not on filedocumented in this encounter Care Teams Facility Engineer Relationship Specialty Start Date End Date Joyce Tapia MD [address] [place] [address] PCP - General Family Medicine 06/19/12 documented as of this encounter
--- OUTSIDE RECORDS SUMMARY | 2024-10-15 08:13 | XMS_ITS | Encounter Summary ---
Author Organization [employer] Address [address] [facility] 7t [place] [address] Care Team Providers Care Service Manager Name Role Phone Joyce Tapia MD Primary Care Provider [phone] Reason for Visit * Reason Onset Date Comments Med Refill 09/17/2024 Encounter Details Date Type Department Care Team ([facility] st Contact Info) Description 09/17/2024 Refill [facility] MED & PEDS 505 [place], [place] [phone] Emerson Keith MD 505 [place] [address] Status post surgical removal of nail matrix [...] [facility] MED & PEDS 505 [place] [address] Katherine Casper, RN 505 [place] [address] 10/31/2024 10:00 AM EDT Medication Management [facility] MED & PEDS 505 [place] [address] Cristal Muhammad PharmD 230 [place] [address] documented as of this encounter Visit Diagnoses Diagnosis Status post surgical removal of nail matrix of toe of left foot documented in this encounter Additional Health Concerns Assessment Noted Time PHQ-9 Depression Total Score: 7 09/15/19 25 9:02 AM EDT documented as of this encounter Care Teams Service Manager Relationship Specialty Start Date End Date Joyce Tapia MD 230 [place] [address] PCP - General Family Medicine 06/19/12 documented as of this encounter
--- OUTSIDE RECORDS SUMMARY | 2024-10-15 08:13 | XMS_ITS | Encounter Summary ---
Author Organization [employer] Address [address] [facility] 7t [place] [address] Care Team Providers Care Clinical Trial Leader Name Role Phone Joyce Tapia MD Primary Care Provider Reason for Visit * Reason Onset Date Comments Med Refill 05/30/2023 Encounter Details Date Type Department Care Team ([facility] st Contact Info) Description 05/30/2023 Telephone [facility] MEDICINE 230 [place], [place] [phone] Joyce Tapia MD [address] [place] [address] Med Refill Social History Tobacco Use Types [...] oxyCODONE (Roxicodone) 5 MG immediate release tablet [facility] [place] - [address] documented in this encounter Plan of Treatment Upcoming Encounters Date Type Department Care Team (Late st Contact Info) Description 10/18/2024 10:00 AM EDT Clinical Support [facility] MED & PEDS 505 [place] [address] Katherine Casper, RN 505 [place], [place] 10/31/2024 10:00 AM EDT Medication Management [facility] MED & PEDS 505 [place] [address] Cristal Muhammad, BobD 230 [place] [address] documented as of this encounter Visit Diagnoses Not on filedocumented in this encounter Care Teams Clinical Trial Leader Relationship Specialty Start Date End Date Joyce Tapia MD 230 [place] [address] PCP - General Family Medicine 06/19/12 documented as of this encounter
--- OUTSIDE RECORDS SUMMARY | 2024-10-15 08:13 | XMS_ITS | Encounter Summary ---
Author Organization [id number] Address [address] [facility] 7t [place] [address] Care Team Providers Care Operator/Assistant Foreman Name Role Phone Joyce Tapia MD Primary Care Provider [phone] Reason for Visit * Reason Comments Med Refill Encounter Details Date Type Department Care Team (Late Contact Info) Description 06/12/2023 Refill [facility] MED & PEDS [address] [place] [address] Christy Ray MD 505 [place] [address] Muscle spasm Social History Tobacco Use Types [...] [facility] [address] [place] [address] Katherine Casper RN 505 [place] [address] 10/31/2024 10:00 AM EDT Medication Management [facility] MED & PEDS [address] [place] [address] Cristal Muhammad, Deonte 230 [place] [address] documented as of this encounter Visit Diagnoses Diagnosis Muscle spasm Spasm of muscle documented in this encounter Care Teams Operator/Assistant Foreman Relationship Specialty Start Date End Date Joyce Tapia MD 230 [place] [address] PCP - General Family Medicine 06/19/12 documented as of this encounter
--- OUTSIDE RECORDS SUMMARY | 2024-10-15 08:13 | XMS_ITS | Encounter Summary ---
Author Organization [facility] Address 75 [facility] 7t [place] [address] Care Team Providers Care Registered Nurse Practitioner Name Role Phone Joyce Tapia MD Primary Care Provider [phone] Encounter Details Date Type Department Care Team (Late Contact Info) Description 09/27/2022 Orders Only [facility] MEDICINE [address] [place], [place] [phone] Comfort Estrada LPN Social History Tobacco Use [...] Description 10/18/2024 10:00 AM EDT Clinical Support [facility] MED & PEDS [address] [place] [address] Katherine Casper, RN 505 [place] [address] 10/31/2024 10:00 AM EDT Medication Management [facility] MED & PEDS [address] [place] [address] Cristal Muhammad PharmD 230 [place], [place] [phone] documented as of this encounter Visit Diagnoses Not on filedocumented in this encounter Care Teams Registered Nurse Practitioner Relationship Specialty Start Date End Date Joyce Tapia MD 230 [place], [place] [phone] PCP - General Family Medicine 06/19/12 documented as of this encounter
--- OUTSIDE RECORDS SUMMARY | 2024-10-15 08:13 | XMS_ITS | Encounter Summary ---
Author Organization [employer] Address [address] [facility] [address] [address] 7t [place] [address] Care Team Providers Care Driver Trainee Name Role Phone Joyce Tapia MD Primary Care Provider [phone] Reason for Visit * Reason Onset Date Comments Med Refill 06/25/2024 Encounter Details Date Type Department Care Team (Late st Contact Info) Description 06/25/2024 Refill [facility] MEDICINE 230 [place] [address] Joyce Tapia MD [address] [place] [address] Status post surgical removal of nail matrix [...] 10/18/2024 10:00 AM EDT Clinical Support [facility] MED & PEDS 505 [place] [address] Katherine Casper, RN 505 [place] [address] 10/31/2024 10:00 AM EDT Medication Management [facility] MED & PEDS 505 [place] [address] Cristal Muhammad, PharmD 230 [place] [address] documented as of this encounter Visit Diagnoses Diagnosis Status post surgical removal of nail matrix of toe of left foot documented in this encounter Care Teams Driver Trainee Relationship Specialty Start Date End Date Joyce Tapia MD 230 [place] [address] PCP - General Family Medicine 06/19/12 documented as of this encounter
--- OUTSIDE RECORDS SUMMARY | 2024-10-15 08:13 | XMS_ITS | Encounter Summary ---
Author Organization [employer] Address 75 [facility] 7t [place] [address] Care Team Providers Care Racetrack Steward Name Role Phone Joyce Tapia MD Primary Care Provider [phone] Reason for Visit * Reason Onset Date Comments Med Refill 04/05/2024 Encounter Details Date Type Department Care Team ([facility] st Contact Info) Description 04/05/2024 Refill [facility] MED & PEDS 505 [place], [place] [phone] Joyce Tapia MD 505 [place] [address] Status post surgical removal of nail matrix [...] Upcoming Encounters Date Type Department Care Team ([facility] st Contact Info) Description 10/18/2024 10:00 AM EDT Clinical Support [facility] MED & PEDS [address] [place] [address] Katherine Casper, RN 505 [place] [address] 10/31/2024 10:00 AM EDT Medication Management [facility] MED & PEDS [address] [place] [address] Cristal Muhammad PharmD 230 [place] [address] documented as of this encounter Visit Diagnoses Diagnosis Status post surgical removal of nail matrix of toe of left foot documented in this encounter Care Teams Racetrack Steward Relationship Specialty Start Date End Date Joyce Tapia MD 230 [place] [address] PCP - General Family Medicine 06/19/12 documented as of this encounter
--- OUTSIDE RECORDS SUMMARY | 2024-10-15 08:13 | XMS_ITS | Encounter Summary ---
Author Organization [employer] Address [address] [facility] 7t [place] [address] Care Team Providers Care Psych Sales Specialist Name Role Phone Joyce Tapia MD Primary Care Provider [phone] Reason for Visit * Reason Onset Date Comments Med Refill 06/28/2023 Encounter Details Date Type Department Care Team ([facility] st Contact Info) Description 06/28/2023 Telephone [facility] MEDICINE 230 [place], [place] [phone] Joyce Tapia MD [address] [place] [address] Med Refill Social History Tobacco Use Types [...] immediate release tablet To be sent to: [facility] [place] - [address] [facility] documented in this encounter Plan of Treatment Upcoming Encounters Date Type Department Care Team (Late st Contact Info) Description 10/18/2024 10:00 AM EDT Clinical Support [facility] MED & PEDS 505 [place] [address] Katherine Casper, RN 505 [place], [place] 10/31/2024 10:00 AM EDT Medication Management [facility] MED & PEDS 505 [place] [address] Cristal Muhammad, BobD 230 [place] [address] documented as of this encounter Visit Diagnoses Not on filedocumented in this encounter Care Teams Psych Sales Specialist Relationship Specialty Start Date End Date Joyce Tapia MD [address] [place] [address] PCP - General Family Medicine 06/19/12 documented as of this encounter
== END 2024-10-15 08:28 | disposition home or self-care (01) ==
LOC: HO.HOS 08:02
PROVIDERS: PCP Student in an Organized Health Care Education/Training Program
DX: M65.322 Trigger finger, left index finger (principal)
CPT/HCPCS: 99024

== ENCOUNTER → 2024-10-15 08:02 | Outpatient (BNVA) | payer OTHER, SELFPAY | PROVIDERS: PCP Student in an Organized Health Care Education/Training Program | DX: R22.9 Localized swelling, mass and lump, unspecified (principal); Z09 Encounter for follow-up examination after completed treatment for conditions other than malignant neoplasm; Z87.39 Personal history of other diseases of the musculoskeletal system and connective tissue; Z98.890 Other specified postprocedural states | CPT/HCPCS: 99212 ==

== ENCOUNTER 2024-11-12 09:37 | Outpatient (AMB) | payer OTHER, SELFPAY ==
[2024-11-12 09:41] VITALS: BMI 28.2
--- NOTE | 2024-11-12 09:41 | MHC.OFFVIS ---
Vital Signs 11/12/24 09:41 Height 5 ft 2 in Weight 154 lb BMI 28.2 Intake Visit Reasons: PO-Lt IF Trigger Release 10/01/24 Intake Note: Nayely is a 63 year old right hand dominant female who presents today for her right lump on the dorsal aspect of the hand. States she noticed it about a month ago. She mentions that 3 days ago it ruptured. She is expressing a burning sensation. Allergies prochlorperazine [From Compazine] Allergy (Severe, Verified 10/15/24 08:17) Seizure Penicillins Allergy (Intermediate, Verified 10/15/24 08:17) HIVES sulfamethoxazole [From BACTRIM] Allergy (Intermediate, Verified 10/15/24 08:17) BLISTERS- DELGADO - NERVE ENDINGS IN HAND/ERYTHEMA MULTIFORM trimethoprim [From BACTRIM] Allergy (Intermediate, Verified 10/15/24 08:17) BLISTERS- DELGADO - NERVE ENDINGS IN HAND/ERYTHEMA MULTIFORM latex [Latex] Allergy (Mild, Verified 10/15/24 08:17) RASH transparent dressing [Tegaderm] Adverse Reaction (Severe, Verified 10/15/24 08:17) Redness of Skin theophylline Adverse Reaction (Intermediate, Verified 10/15/24 08:17) TACHYCARDIA HPI HPI PO-Lt IF Trigger Release 10/01/24: Details: Nayely is a 63 year old right hand dominant female who presents today for her right lump on the dorsal aspect of the hand. States she noticed it about a month ago. She mentions that 3 days ago it ruptured. She is expressing a burning sensation. Patient continues to endorse locking and catching of the right index and middle fingers. No other acute complaints or concerns at this time. [facility] Medical History Abscess Abdominal pain Infection of skin due to methicillin resistant Staphylococcus aureus (MRSA) Numbness of right hand COVID-19 Sebaceous cyst Cubital tunnel syndrome on left Contusion of right ankle Numbness and tingling in left hand Left hand pain Stiffness of left hand joint Emesis Overweight (BMI 25.0-29.9) Borderline diabetes Dyslipidemia Non-toxic multinodular goiter Diabetes type 2, controlled History of restless legs syndrome Anxiety Depression High cholesterol Asthma DVT (deep venous thrombosis) GERD (gastroesophageal reflux disease) Anastomotic ulcer Surgical History Hx of colonoscopy H/O removal of cyst (02/03/23) History of removal of cyst (07/28/22) Hx of cholecystectomy History of surgery History of surgery on left wrist Hx of elbow surgery History of excision of epidermal inclusion cyst (03/23/22) Hx of excision of epidermal inclusion cyst (12/25/21) History of excision of mass (10/26/21) S/P trigger finger release History of tooth extraction Hx of hand surgery Hx of esophagogastroduodenoscopy S/P gastric bypass History of hysterectomy Family History Mother Diabetes mellitus CHF (congestive heart failure) Kidney failure Cervical cancer Brother No problems noted. Brother No problems noted. 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 Neuro: Normal sensation of the tips of all digits of the left hand at this time Vascular: Cap refill brisk Pain: Significant tenderness to palpation about the incision site over A1 palmira of the right index finger and middle finger ROM: There is visible and palpable locking and catching of the right index and middle fingers when attempting to make a closed fist and extend fully With encouragement, patient was able to make a closed fist and extend all digits of the left hand fully, but reports some fairly significant discomfort when making a fist in the left index finger Skin: Well approximated and well healing incision site noted over the A1 palmira of the left index finger No lacerations or abrasions. General: No ecchymosis, erythema, or evidence of infection. Psych: Appears grossly normal Affect normal Attitude cooperative Office Procedures AMB Tendon Injection Tendon Injection [id number] Tendon Sheath Injection All charges added?: Procedure code (CPT) selection complete Assessment & Plan Assessment & Plan (1) Trigger finger, left index finger: Code(s): M65.322 - Trigger finger, left index finger Category: Medical (2) Trigger finger, right index finger: Code(s): M65.321 - Trigger finger, right index finger Category: Medical (3) Trigger finger, right middle finger: Code(s): M65.331 - Trigger finger, right middle finger Category: Medical Plan 1. Trigger finger, right index finger Patient is educated about this condition Patient is educated about the treatment options available Patient would like to proceed with steroid injection at this time The risks and benefits of a steroid injection including but not limited to risk of damage to blood vessels, nerves, tendons, infection, skin bleaching, failure to improve symptoms, increased pain, and possible need for further injections or other intervention were discussed with the patient and the patient wishes to proceed with the steroid injection. Once consent was obtained, I sterilely prepped the area over the A1 palmira of the flexor tendon sheath of the right index finger. I then injected the flexor tendon sheath with a combination of 1 mL of dexamethasone (4mg/ml), and 1% lidocaine. The patient tolerated the procedure well with no complications. If the patient continues to have locking and catching 4-6 weeks following this injection, they may call to schedule appointment to discuss alternative treatment options Follow-up prn 2. Trigger finger, right middle finger Would like to proceed with injection with index finger prior to any injection of the middle finger Patient is educated that can not perform multiple injections in the same hand At this time, as the patient has diabetes and I do not want to cause her to enter severe hyperglycemia Patient states understanding of this is amenable to this plan 3. Trigger finger, left index finger Status post trigger release DOS 10/01/2024 Patient appears to be recovering well postoperatively Patient is educated about the typical recovery course Patient is shown several snota-af-odptoz exercises in the office today, and approximately 5 minutes is spent helping the patient to make a closed fist to attempt to alleviate the stiffness she is now experiencing postoperatively Patient was also referred to occupational therapy for range of motion and strengthening of the left hand in the setting of the stiffness Patient will follow-up as needed with any acute concerns Coding Level of Care Code Est Pt Level 3 (90045) Diagnoses Trigger finger, left index finger M65.322 Trigger finger, right index finger M65.321 Trigger finger, right middle finger M65.331 CPT Codes Tendon Injection - Tendon Injection 1: [id number]-Yiyqve Tendon Sheath Injection ([id number])
--- OUTSIDE RECORDS SUMMARY | 2024-11-12 09:53 | XMS_ITS | Encounter Summary ---
Author Organization [employer] Address [address] [facility] 7t [place] [address] Care Team Providers Care Contract Management Specialist Name Role Phone Joyce Tapia MD Primary Care Provider [phone] Reason for Visit * Reason Onset Date Comments Med Refill 09/24/2024 Encounter Details Date Type Department Care Team ([facility] st Contact Info) Description 09/24/2024 Refill [facility] MED & PEDS 505 [place], [place] [phone] Joyce Tapia MD 505 [place] [address] Status post surgical removal of nail matrix [...] Upcoming Encounters Date Type Department Care Team ([facility] st Contact Info) Description 11/14/2024 9:30 AM EDT Clinical Support [facility] MED & PEDS 505 [place] [address] Katherine Casper, MAKEDA 505 [place] [address] 11/28/2024 9:30 AM EDT Medication Management [facility] MED & PEDS [address] [place] [address] Cristal Muhammad PharmD 230 [place] [address] 02/05/2025 9:00 AM EDT Office Visit [facility] MED & PEDS [address] [place] [address] Ayden Orellana MD 505 [place] [address] documented as of this encounter Visit Diagnoses Diagnosis Status post surgical removal of nail matrix of toe of left foot documented in this encounter Additional Health Concerns Assessment Noted Time PHQ-9 Depression Total Score: 7 09/15/19 25 9:02 AM EDT documented as of this encounter Care Teams Contract Management Specialist Relationship Specialty Start Date End Date Joyce Tapia MD [address] [place] [address] PCP - General Family Medicine 06/19/12 documented as of this encounter
--- OUTSIDE RECORDS SUMMARY | 2024-11-12 09:53 | XMS_ITS | Encounter Summary ---
Author Organization [employer] Address 75 [facility] 7t [place] [address] Care Team Providers Care Production Repairer Name Role Phone Joyce Tapia MD Primary Care Provider [phone] Reason for Visit * Reason Onset Date Comments Med Refill 04/11/2024 Encounter Details Date Type Department Care Team ([facility] Contact Info) Description 04/11/[address] [facility] CHC MED & PEDS 505 [place], [place] [phone] Joyce Tapia MD 505 [place] [address] Med Refill Social History Tobacco Use Types [...] immediate release tablet To be sent to: [facility] - [address] documented in this encounter Plan of Treatment Upcoming Encounters Date Type Department Care Team ([facility] st Contact Info) Description 11/14/2024 9:30 AM EDT Clinical Support [facility] MED & PEDS 505 [place] [address] Katherine Casper, RN 505 [place] [address] 11/28/2024 9:30 AM EDT Medication Management [facility] MED & PEDS 505 [place] [address] Cristal Muhammad, PharmD 230 [place] [address] 02/05/2025 9:00 AM EDT Office Visit [facility] MED & PEDS 505 [place] [address] Ayden Orellana MD 505 [place] [address] documented as of this encounter Visit Diagnoses Not on filedocumented in this encounter Care Teams Production Repairer Relationship Specialty Start Date End Date Joyce Tapia MD [address] [place] [address] PCP - General Family Medicine 06/19/12 documented as of this encounter
--- OUTSIDE RECORDS SUMMARY | 2024-11-12 09:53 | XMS_ITS | Encounter Summary ---
Author Organization [employer] Address 75 [facility] 7t [place] [address] Care Team Providers Care Sales Floor Associate Name Role Phone Joyce Tapia MD Primary Care Provider [phone] Reason for Visit * Reason Comments Med Refill Encounter Details Date Type Department Care Team ([facility] Contact Info) Description 04/12/2024 Refill [facility] MED & PEDS 505 [place], [place] [phone] Joyce Tapia MD 505 [place], [place] [phone] Status post surgical removal of nail matrix [...] Care Team (Late st Contact Info) Description 11/14/2024 9:30 AM EDT Clinical Support [facility] MED & PEDS 505 [place] [address] Katherine Casper, MAKEDA 505 [place] [address] 11/28/2024 9:30 AM EDT Medication Management [facility] MED & PEDS 505 [place] [address] Cristal Muhammad, PharmD [address] [place] [address] 02/05/2025 9:00 AM EDT Office Visit [facility] MED & PEDS 505 [place] [address] Ayden Orellana MD 505 [place] [address] documented as of this encounter Visit Diagnoses Diagnosis Status post surgical removal of nail matrix of toe of left foot documented in this encounter Care Teams Sales Floor Associate Relationship Specialty Start Date End Date Joyce Tapia MD [address] [place] [address] PCP - General Family Medicine 06/19/12 documented as of this encounter
--- OUTSIDE RECORDS SUMMARY | 2024-11-12 09:53 | XMS_ITS | Encounter Summary ---
Author Organization [employer] Address 75 [facility] 7t [place] [address] Care Team Providers Care Office Machines Sales Representative Name Role Phone Joyce Tapia MD Primary Care Provider [phone] Reason for Visit * Reason Onset Date Comments Med Refill 04/19/2024 Encounter Details Date Type Department Care Team (Late st Contact Info) Description 04/19/2024 Refill [facility] MEDICINE 230 [place] [address] Joyce Tapia MD [address] [place], [place] [phone] Status post surgical removal of nail matrix [...] Description 11/14/2024 9:30 AM EDT Clinical Support [facility] MED & PEDS 505 [place] [address] Katherine Casper, MAKEDA 505 [place] [address] 11/28/2024 9:30 AM EDT Medication Management [facility] MED & PEDS [address] [place] [address] Cristal Muhammad, PharmD 230 [place] [address] 02/05/2025 9:00 AM EDT Office Visit [facility] MED & PEDS [address] [place] [address] Ayden Orellana MD 505 [place] [address] documented as of this encounter Visit Diagnoses Diagnosis Status post surgical removal of nail matrix of toe of left foot documented in this encounter Care Teams Office Machines Sales Representative Relationship Specialty Start Date End Date Joyce Tapia MD 230 [place] [address] PCP - General Family Medicine 06/19/12 documented as of this encounter
--- OUTSIDE RECORDS SUMMARY | 2024-11-12 09:53 | XMS_ITS | Encounter Summary ---
Author Organization [employer] Address 75 [facility] 7t [place] [address] Care Team Providers Care Hot Pipe Gauger Name Role Phone Joyce Tapia MD Primary Care Provider [phone] Reason for Visit * Reason Onset Date Comments Med Refill 07/25/2024 Encounter Details Date Type Department Care Team (Late st Contact Info) Description 07/25/2024 Refill [facility] MEDICINE 230 [place] [address] Emerson Keith MD 505 [place], [place] [phone] Status post surgical removal of nail matrix [...] Description 11/14/2024 9:30 AM EDT Clinical Support [facility] MED & PEDS 505 [place] [address] Katherine Casper, RN 505 [place] [address] 11/28/2024 9:30 AM EDT Medication Management [facility] MED & PEDS 505 [place] [address] Cristal Muhammad, PharmD 230 [place] [address] 02/05/2025 9:00 AM EDT Office Visit [facility] MED & PEDS [address] [place] [address] Ayden Orellana MD 505 [place] [address] documented as of this encounter Visit Diagnoses Diagnosis Status post surgical removal of nail matrix of toe of left foot documented in this encounter Care Teams Hot Pipe Gauger Relationship Specialty Start Date End Date Joyce Tapia MD 230 [place] [address] PCP - General Family Medicine 06/19/12 documented as of this encounter
--- OUTSIDE RECORDS SUMMARY | 2024-11-12 09:53 | XMS_ITS | Encounter Summary ---
Author Organization [employer] Address 75 [facility] 7t [place] [address] Care Team Providers Care Wire Strander Name Role Phone Joyce Tapia MD Primary Care Provider [phone] Reason for Visit * Reason Onset Date Comments Med Refill 07/19/2024 Encounter Details Date Type Department Care Team ([facility] st Contact Info) Description 07/19/2024 Refill [facility] MED & PEDS 505 [place], [place] [phone] Joyce Tapia MD 505 [place] [address] Social History Tobacco Use Types Packs/Day Years [...] Description 11/14/2024 9:30 AM EDT Clinical Support [facility] MED & PEDS 505 [place] [address] Katherine Casper, MAKEDA 505 [place] [address] 11/28/2024 9:30 AM EDT Medication Management [facility] MED & PEDS [address] [place] [address] Cristal Muhammad, PharmD 230 [place] [address] 02/05/2025 9:00 AM EDT Office Visit [facility] MED & PEDS [address] [place] [address] Ayden Orellana MD 505 [place] [address] documented as of this encounter Visit Diagnoses Not on filedocumented in this encounter Care Teams Wire Strander Relationship Specialty Start Date End Date Joyce Tapia MD 230 [place] [address] PCP - General Family Medicine 06/19/12 documented as of this encounter
--- OUTSIDE RECORDS SUMMARY | 2024-11-12 09:53 | XMS_ITS | Encounter Summary ---
Author Organization [employer] Address [address] [facility] [address] [place] [address] Care Team Providers Care Line Clearance Foreman Name Role Phone Joyce Tapia MD Primary Care Provider [phone] Reason for Visit * Reason Onset Date Comments Med Refill 04/18/2024 Encounter Details Date Type Department Care Team ([facility] st Contact Info) Description 04/18/2024 Refill [facility] [address] [place], [place] [phone] Amber Palacio MD [address] [place], [place] [phone] Smoker Social History Tobacco Use Types Packs/Day [...] [facility] [address] [place] [address] Katherine Casper, MAKEDA [address] [place] [address] 11/28/2024 9:30 AM EDT Medication Management [facility] [address] [place] [address] Cristal Muhammad, PharmD [address] [place] [address] 02/05/2025 9:00 AM EDT Office Visit [facility] [address] [place] [address] Ayden Orellana MD [address] [place] [address] documented as of this encounter Visit Diagnoses Diagnosis Smoker Tobacco use disorder documented in this encounter Care Teams Line Clearance Foreman Relationship Specialty Start Date End Date Joyce Tapia MD [address] [place] [address] PCP - General Family Medicine 06/19/12 documented as of this encounter
--- OUTSIDE RECORDS SUMMARY | 2024-11-12 09:54 | XMS_ITS | Encounter Summary ---
Author Organization [employer] Address [address] [facility] 7t [place] [address] Care Team Providers Care Veterinary Laboratory Diagnostician Name Role Phone Joyce Tapia MD Primary Care Provider [phone] Reason for Visit * Reason Onset Date Comments Med Refill 07/12/2024 Encounter Details Date Type Department Care Team ([facility] st Contact Info) Description 07/12/2024 Refill [facility] [address] [place], [place] [phone] Joyce Tapia MD [address] [place] [address] Status post surgical removal of nail matrix [...] 11/14/2024 9:30 AM EDT Clinical Support [facility] [address] [place] [address] Katherine Casper, RN [address] [place] [address] 11/28/2024 9:30 AM EDT Medication Management [facility] [address] [place] [address] Cristal Muhammad, PharmD [address] [place] [address] 02/05/2025 9:00 AM EDT Office Visit [facility] [address] [place] [id number] Ayden Orellana MD [address] [place] [address] documented as of this encounter Visit Diagnoses Diagnosis Status post surgical removal of nail matrix of toe of left foot documented in this encounter Care Teams Veterinary Laboratory Diagnostician Relationship Specialty Start Date End Date Joyce Tapia MD [address] [place] [address] PCP - General Family Medicine 06/19/12 documented as of this encounter
--- OUTSIDE RECORDS SUMMARY | 2024-11-12 09:54 | XMS_ITS | Encounter Summary ---
Author Organization [email or web address] Address [address] [facility] [address] [place] [address] Care Team Providers Care Cost Reduction Engineer Name Role Phone Joyce Tapia MD Primary Care Provider [phone] Reason for Visit * Reason Onset Date Comments Med Refill 03/17/2023 Encounter Details Date Type Department Care Team (Late st Contact Info) Description 03/17/2023 Telephone [facility] [address] [place] [address] Joyce Tapia MD [address] [place] [address] Med Refill Social History Tobacco Use Types [...] Description 11/14/2024 9:30 AM EDT Clinical Support [facility] [address] [place] [address] Katherine Casper, MAKEDA [address] [place] [address] 11/28/2024 9:30 AM EDT Medication Management [facility] [address] [place] [address] Cristal Muhammad, BobD [address] [place] [address] 02/05/2025 9:00 AM EDT Office Visit [facility] [address] [place] [address] Ayden Orellana MD [address] [place] [address] documented as of this encounter Visit Diagnoses Not on filedocumented in this encounter Care Teams Cost Reduction Engineer Relationship Specialty Start Date End Date Joyce Tapia MD [address] [place] [address] PCP - General Family Medicine 06/19/12 documented as of this encounter
--- OUTSIDE RECORDS SUMMARY | 2024-11-12 09:54 | XMS_ITS ---
Author Organization [employer] Address [address] [facility] [address] [place] [address] Care Team Providers Care Abalone Processor Name Role Phone Joyce Tapia MD Primary Care Provider LIQUOR GALLERY OPERATOR Status:Enrolled (Active) Start date:10/22/2022 Enrollment date:10/22/2022 Case Team Name Relationship Phone Katherine Casper RN Registered Nurse(Responsible S taff) Continued Care and Services Coordination
--- OUTSIDE RECORDS SUMMARY | 2024-11-12 09:54 | XMS_ITS | Clinical Summary ---
Author Organization [employer] Address [address] [facility] [address] [place] [address] Care Team Providers Care Roller Coaster Designer Name Role Phone Joyce Tapia MD Primary Care Provider [phone] Allergies Active Allergy Reactions Criticality Noted Date [...] EVERY MORNING 90 tablet 1 024 Active hydroCHLOROthia zide (Microzide) 12.5 MG [...] daily. 025 Active Blood Glucose Monitoring Suppl (N[place]yle [place] Lite) w/Device kit Test blood sugar as [...] needed for low blood sugar. 1 each 11 025 Active sertraline (Zoloft) 100 MG tablet TAKE ONE TABLET EVERY NIGHT AT BEDTIME 30 tablet 6 025 Active Ferrous Sulfate (iron) 325 (65 Fe) MG tablet TAKE ONE TABLET EVERY MORNING 90 tablet 1 025 Active meclizine (Antivert) 25 MG tablet 1 tab po BID 60 tablet 3 025 Active zolpidem (Ambien) 5 MG tablet TAKE ONE TABLET AT BEDTIME NEEDED FOR SLEEP 30 tablet 025 Active tiZANidine (Zanaflex) 4 MG tabletIndicatio ns:Muscle spasm TAKE ONE TABLET EVERY EVENING 30 tablet 3 025 Active gabapentin (Neurontin) 100 MG capsule Take 1 capsule (100 mg) by mouth at bedtime. 30 capsule 025 2025 Active lidocaine (Lidoderm) 5 % patchIndication s:Pain APPLY 1 PATCH TOPICALLY EVER DAY. REMOVE AND DISCARD PATCH WITHIN 12 HOURS OR DIRECTED BY MD. 30 patch Active Lancets 33G miscIndications :Type 2 diabetes mellitus without complication, without long-term current use of insulin ([facility]) USE TO TEST BLOOD SUGAR THREE TIMES A DAY 100 each 3 Active glucose blood (FREESTYLE LITE) test stripIndication s:Type 2 diabetes mellitus without complication, without long-term current use of insulin ([facility]) USE TO TEST BLOOD SUGAR THREE TIMES A DAY 100 each 3 025 2025 Active varenicline (Chantix) 1 MG tablet Take 1/2 tablet by mouth daily for 3 days, then 1/2 tablet twice daily for 4 days, then 1 tablet twice daily thereafter. Take with a full glass of water. 60 tablet 2 Active oxyCODONE (Roxicodone) 5 MG immediate release tabletIndicatio ns:Status post surgical removal of nail matrix of toe of left foot Take 1 tablet (5 mg) by mouth every 6 (six) hours if needed for severe pain. 30 tablet 025 Active tiZANidine (Zanaflex) 4 MG tabletIndicatio ns:Muscle spasm TAKE ONE TABLET EVERY EVENING 30 tablet 3 024 2024 Discontinued varenicline (Chantix) 1 MG tablet Take 1 tablet (1 mg) by mouth 2 times daily. Take with full glass of water. 56 tablet 2 025 2024 Discontinued(R eorder (will not trigger notification to Pharmacy)) lidocaine (Lidoderm) 5 % patchIndication s:Pain Apply 1 patch topically Once per day. Remove & discard patch within 12 hours or as directed by MD. 30 patch 025 2024 Discontinued(R eorder (will not trigger notification to Pharmacy)) zolpidem (Ambien) 5 MG tablet TAKE ONE TABLET AT BEDTIME NEEDED FOR SLEEP 30 tablet 025 2024 Discontinued(R eorder (will not trigger notification to Pharmacy)) Continuous Glucose Sensor (FreeStyle Gwendolyn 3 Plus Sensor) misc 1 each every 15 days. 2 each 025 2024 Discontinued(C ost of medication) Lancets 33G misc Test blood sugar 3 times daily due to recurring hypoglycemia 2024 Discontinued(R eorder (will not trigger notification to Pharmacy)) glucose blood (FREESTYLE LITE) test strip Test blood sugar 3 times daily due to recurring hypoglycemia 025 2024 Discontinued(R eorder (will not trigger [...] for severe pain. Do not start before October 16, 2024. 30 tablet 025 2024 Discontinued(R [...] (12/02/2023 3:27 PM EDT): Dermatology referral today Bereavement, uncomplicated 01/03/2023 Assessment & Plan (01/03/2023 [...] community supports PLAN: 1. Follow up with [facility]: Not recommended for follow-up 2. 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 Begin medications and if symptoms worsen f/u. Relevant medications Azithromycin (Zithromax) 250 MG Tablet Prednisone (Deltasone) 20 MG Tablet Candidiasis 09/28/2011 10/20/2024 Encounters Date Type Department Care Team Description 11/12/2024 Refill [facility] [address] [facility] [place] [address] Joyce Tapia MD Status post surgical removal of nail matrix of toe of left foot 11/05/2024 Refill [facility] [address] [facility] [address] [place] [phone] Joyce Tapia MD Status post surgical removal of nail matrix of toe of left foot 10/31/2024 Travel 10/29/2024 Refill [facility] [address] [facility] [place] [address] Joyce Tapia MD Status post surgical removal of nail matrix of toe of left foot 10/25/2024 Refill [facility] [address] [place] [address] Joyce Tapia MD 10/24/2024 Refill [facility] [address] [place] [address] Ayden Orellana MD Status post surgical removal of nail matrix of toe of left foot 10/23/2024 Refill [facility] [address] [place] [address] Joyce Tapia MD Pain; Type 2 diabetes mellitus without complication, without long-term current use of insulin ([facility]) 10/22/2024 Refill [facility] [address] [place] [address] Ayden Orellana MD Status post surgical removal of nail matrix of toe of left foot 10/20/2024 10:00 AM EDT Office Visit [facility] [address] [place] [address] Odilon Mccrary MD Carpal tunnel syndrome of right wrist (Primary Dx); History of bilateral carpal tunnel release; Neuropathic pain of right hand 10/20/2024 Travel 10/20/2024 Refill [facility] [address] [place] [address] Joyce Tapia MD Muscle spasm 10/19/2024 Travel 10/19/2024 Telephone [facility] [address] [place] [address] Katherine Casper, RN international project engineer 10/18/2024 Telephone [facility] [address] [place] [address] Joyce Tapia MD appointment cx 10/18/2024 Refill [facility] [address] [place], [place] [phone] Joyce Tapia MD 10/15/2024 Refill [facility] [address] [place] [address] Emerson Keith MD Status post surgical removal of nail matrix of toe of left foot 10/08/2024 Refill [facility] [address] [place] [address] Joyce Tapia MD Status post surgical removal of nail matrix of toe of left foot 10/07/2024 Refill [facility] [address] [place] [address] Joyce Tapia MD Status post surgical removal of nail matrix of toe of left foot 10/01/2024 Refill [facility] [address] [place] [address] Joyce Tapia MD Status post surgical removal of nail matrix of toe of left foot 09/26/2024 Refill [facility] [address] [place] [address] Joyce Tapia MD Status post surgical removal of nail matrix of toe of left foot 09/25/2024 Orders Only [facility] [address] [place] [address] Joyce Tapia MD 09/25/2024 Travel 09/25/2024 Refill [facility] [address] [place] [address] oJyce Tapia MD Status post surgical removal of nail matrix of toe of left foot 09/24/2024 Refill [facility] [address] [place] [address] Joyce Tapia MD Status post surgical removal of nail matrix of toe of left foot 09/17/2024 Refill [facility] [address] [place] [address] Emerson Keith MD Status post surgical removal of nail matrix of toe of left foot 09/17/2024 Refill [facility] [address] [place] [address] Joyce Tapia MD Status post surgical removal of nail matrix of toe of left foot 09/14/2024 9:15 AM EDT Office Visit [facility] [address] [place] [address] Joyce Tapia MD Type 2 diabetes mellitus without complication, without long-term current use of insulin ([facility]) (Primary Dx); Gastroesophageal reflux disease without esophagitis; Nevus 09/14/2024 Travel 09/13/2024 Telephone [facility] [address] [place] [address] Joyce Tapia MD Chart Prep 09/11/2024 Refill [facility] [address] [place] [address] Joyce Tapia MD 09/11/[address] [address] Joyce Tapia MD Med Refill 09/10/2024 Refill [facility] [address] [place] [address] Joyce Tapia MD Status post surgical removal of nail matrix of toe of left foot 09/07/2024 Patient Outreach [address] [address] Joyce Tapia MD Pre-visit Planning (SDOH screening completed on 08/30/24) 09/07/2024 Refill [facility] [address] [place] [address] Joyce Tapia MD 09/05/2024 Refill [facility] [address] [place] [address] Joyce Tapia MD Status post surgical removal of nail matrix of toe of left foot 09/05/2024 Refill [facility] [address] [place] [address] Jenny Schmidt MD Pain 09/05/2024 Refill [facility] [address] [place] [address] Joyce Tapia MD Status post surgical removal of nail matrix of toe of left foot 09/03/2024 Telephone [facility] [address] [place] [address] Cristal Muhammad, Deonte 08/30/2024 Patient Outreach [facility] [address] [place] [address] Joyce Tapia MD Pre-visit Planning (SDOH negative, Tobacco screening negative. ) 08/29/2024 Refill [facility] [address] [place] [address] Joyce Tapia MD Status post surgical removal of nail matrix of toe of left foot 08/23/2024 Patient Outreach [facility] [address] [place] [address] Joyce Tapia MD Transition Of Care (Tcm) 08/20/2024 Orders Only GENERIC EXTERNAL DATA DEPARTMENT Provider, Generic External Data 08/17/2024 Refill [facility] [address] [place] [address] Joyce Tapia MD Status post surgical removal of nail matrix of toe of left foot 08/15/2024 Refill [facility] [address] [place] [address] Joyce Tapia MD 08/15/2024 Refill [facility] [address] [place] [address] Joyce Tapia MD Status post surgical removal of nail matrix of toe of left foot 08/15/2024 Refill [facility] [address] [place] [address] Joyce Tapia MD Status post surgical removal of nail matrix of toe of left foot from Last 3 Months Immunizations Name Administration [...] Sign Reading Time Taken Comments Blood Pressure 119/70 10/20/2024 9:59 AM EDT Pulse 75 10/20/2024 9:59 AM EDT Temperature 35.9 ??C (96.6 ??F) 10/20/2024 9:59 AM ED T Respiratory Rate 20 10/20/2024 9:59 AM EDT Oxygen Saturation 98% 10/20/2024 9:59 AM EDT Inhaled Oxygen Concentration - - Weight 72.3 kg (159 lb 6.4 oz) 10/20/2024 9:59 A M EDT Height 160 cm (5' 3 ) 10/20/2024 9:59 AM EDT Body Mass Index 28.24 10/20/2024 9:59 AM EDT Plan of Treatment Upcoming Encounters Date Type Department Care Team (Late st Contact Info) Description 11/14/2024 9:30 AM EDT Clinical Support [facility] [address] [place] [address] Katherine Casper RN [address] [place] [address] 11/28/2024 9:30 AM EDT Medication Management [facility] [address] [place] [address] Cristal Muhammad, PharmD [address] [place] [address] 02/05/2025 9:00 AM EDT Office Visit [facility] [address] [place] [address] Ayden Orellana MD [address] [place] [address] Health Maintenance Due Date Last Done Comments CT Colonography 1962 FIT DNA/Cologuard 1962 FIT 1962 FOBT 1962 HIV Screening 1960 Sigmoidoscopy 1962 Eye Exam 1972 Hepatitis C Screening 1980 Pap Smear 03/31/2024 03/31/2021 Mammogram 05/28/2024 05/28/2023, 08/04, 08/16/2020, Additional history exists Diabetes: Hemoglobin A1C 01/30/2025 025, 07/09/2024, 01/13/2024, Additional history exists Colonoscopy 02/20/2025 02/20/2015 Colorectal Cancer Screening 02/20/2025 Diabetes: Foot Exam 07/09/2025 07/09/2024, 07/09/2024, 07/09/2024, Additional history exists SDOH Screening 08/30/2025 08/30/2024 Alcohol/Substance Use Screening 09/14/2025 09/14/2024 Depression Screening 09/14/2025 09/14/2024, 09/15/19 Diabetes: Urine Protein Screening 09/25/2025 09/25/2024, 08/20/2021 Lipid Panel 09/25/2025 09/25/2024, 07/09/2024 Tobacco Screening 11/01/2025 11/01/2024 Cervical Cancer Screening 03/31/2026 HPV/Cotest 03/31/2026 03/31/2021 [...] Procedure Name Priority Date/Time Associated Diagnosis Comments POCT GLYCATED HEMOGLOBIN, TOTAL Routine 10/31/2024 10:13 AM EDT Type 2 diabetes mellitus without complication, without long-term current use of insulin ([facility]) ALBUMIN, RANDOM URINE W/CREATININE Routine 09/25/2024 3:50 PM EDT LIPID PANEL, STANDARD Routine 09/25/2024 3:47 PM EDT POCT GLUCOSE Routine 09/14/2024 9:02 AM EDT Type 2 diabetes mellitus without complication, without long-term current use of insulin ([facility]) CT ABDOMEN PELVIS W CONTRAST Routine 09/12/2024 [...] QL NAAT Routine 08/20/2024 7:41 PM EST BI MAMMOGRAM SCREENING TOMOSYNTHESIS BILATERAL Routine 05/28/2023 8:58 AM EST HPV MRNA E6/E7 Routine 03/31/2021 9:06 AM EDT THINPREP PAP Routine 03/31/2021 9:06 AM EDT HM COLONOSCOPY Routine 02/20/2015 from Last 3 Months or Most Recently Relevant to Health Maintenance Results * (ABNORMAL) POCT A1C (10/31/2024 10:13 AM EDT) Hemoglobin A1C 7.1(A) 4.0 - 6.0 % QC Media Lot # [id number] Lot# Expiration Date Blood 10/31/2024 10:1 3 AM EDT us Joyce Tapia MD POINT OF CARE TEST ENTER/EDIT OR DERABLES Final Result * Albumin, Random Urine W/Creatinine (09/25/2024 3:50 PM EDT) Creatinine, Urine 83.95 mg/dL [facility] Microalbumin Urine <5.0 mg/L [facility] Microalbum Creatinine Ratio Ur TNP <30 ug/mg cr [facility] Comment:Unable to calculate albumin/creatinine ratio due to lowmicroalbumin or creatinine result. 09/25/2024 3:50 PM EDT 09/25/2024 5:55 PM EDT us Joyce Tapia MD LAB URINE ORDERABLES Final Resul t [facility] [address] [place] [address] [phone] * Lipid Panel, Standard (09/25/2024 3:47 PM EDT) Triglycerides 56 <150 mg/dL [facility] Comment:Desirable Triglyceri de: less than 150 mg/dLBorderline High Triglyceride 150-199 mg/dLHigh Triglyceride: 200-499 mg/dLVery High Triglyceride: greater than or equal to 5OO mg/dL Cholesterol 119 <200 mg/dL [facility] Comment:Desirable Cholestero l: less than 200 mg/dLBorderline High Cholesterol: 200-239 mg/dLHigh Cholesterol: greater than 239 mg/dL LDL Cholesterol Calculated 47 <100 mg/dL [facility] Comment:Desirable LDL: less than 100 mg/dLNear Optimal/Above Optimal LDL: 110- 129 mg/dLBorderline High LDL: 130-159 mg/dLHigh LDL: 160-189 mg/dLVery High LDL: greater than or equal to 190 mg/dL HDL Cholesterol 61 >40 mg/dL [facility] Comment:Desirable HDL: great er than 40 mg/dL Note: This HDL assay may give artificially low results in patients with liver disease. 09/25/2024 3:47 PM EDT 09/25/2024 6:08 PM EDT us Joyce Tapia MD LAB BLOOD ORDERABLES Final Resul t [facility] [address] [place] [phone] * POCT Glucose (09/14/2024 9:02 AM EDT) Glucose Blood, POC 197 60 - 200 mg/dL QC Media Lot # [id number] Lot# Expiration Date 411 Blood Capillary blood specimen / Unknown 09/14/2024 9:02 AM EDT us Joyce Tapia MD POINT OF CARE TEST ENTER/EDIT OR DERABLES Final Result * CT Abdomen Pelvis w/ Contrast (09/12/2024 1:12 PM EDT) Anatomical Region Laterality Modality Body, Pelvis, Abdomen Computed T omography 09/12/2024 1:12 PM EDT Narrative 09/12/2024 1:13 PM EDT ? [facility] ?[address] ?[place] [address] ? CT Scan Report ? Signed ? Patient: Grover,Nayely ?MR#: [id number] ?? 541 ? : 1960 ?Acct:[id number] ? Age/Sex: 63 / F ?ADM Date: 09/11/24 ? Loc: HO.CT ? Attending Dr: Angie Mosquera MD ? Ordering Physician: Mona Anne ?? Date of Service: 09/11/24 ?? Procedure(s): CT abdomen pelvis w IV con ?? Accession Number(s): [id number] ? cc: Mona Anne; Joyce Tapia MD ? Report Number: ?? [id number]: Total DLP = ??369.00 mGy-cm ? CLINICAL HISTORY: R10.9 - Unspecified abdominal pain ? CT abdomen and pelvis with contrast ? Comparison: CT/TX/SR - CT ABDOMEN PELVIS WO IV CON [...] on ?? 09/12/2024 13:12:22 ? Dictated By: ?Kesha,Sukhwinder MD ? Signed By: ?<Electronically signed by Sukhwinder Rebolledo MD in OV> ? 09/12/24 1313 ? DD/ 1312 ? TD/TT: 09/12/24 1312 ? Java Web Application Developer: ? Procedure Note Michelle Burt - 09/12/[address] [address] [address] Scan Report Signed Patient: Nayely Grover#: [id number] 541 : 1960Acct:[id number] Age/Sex: 63 / FADM Date: 09/11/24 Loc: HO.CT Attending Dr: Angie Mosquera MD Ordering Physician: Mona Anne Date of Service: 09/11/24 Procedure(s): CT abdomen pelvis w IV con Accession Number(s): [id number] cc: Mona Anne; Joyce Tapia MD Report Number: [id number]: Total DLP = 369.00 mGy-cm CLINICAL HISTORY: R10.9 - Unspecified abdominal pain CT abdomen and pelvis with contrast Comparison: CT/TX/SR - CT ABDOMEN PELVIS WO IV CON [...] 09/12/24 1313 DD/ 1312 TD/TT: 09/12/24 1312 Java Web Application Developer: [facility] External Provider IMG CT PROCEDURES Final Result * D Dimer High Sensitivity (08/20/2024 9:30 PM EST) D Dimer High Sensitivity <150 NG/ML [facility] Comment:D-DIMER HS REFERENCE RANGENote: Our [...] ORDERAB LES Final Result Performing Organization Address [facility] de Phone Number [facility] [address] [place] [address] [phone] * High Sensitivity Troponin I (08/20/2024 9:30 PM EST) Only the most recent of2 resultswithin the time period is included. TROPONIN I HIGH SENSITIVITY <2.7 <3.5 - 17.0 ng/L [facility] Comment:The [place]eballos high sens itivity Troponin-I results should beused in conjunction with other diagnostic information suchas ECG, clinical observations and information, and patientsymptoms to aid in the diagnosis of [place]. 08/20/2024 9:30 PM EST 08/20/2024 9:34 PM EST us Generic External Data Provider LAB BLOOD ORDERAB LES Final Result Performing Organization Address [facility] de Phone Number [facility] [address] [place] [address] [phone] * XR Chest 1 View (08/20/2024 8:47 PM EST) Anatomical Region Laterality Modality Chest Radiographic Yovana ging 08/20/2024 8:47 PM EST Narrative 08/20/2024 8:49 PM EST ? [facility] ?[address] ?[place] [address] ?XRay Report ? Signed ? Patient: Grover,Nayely ?MR#: [id number] ?? 541 ? : 1960 ?Acct:[id number] ? Age/Sex: 63 / F ?ADM Date: 02/17/25 ? Loc: HO.ED ? Attending Dr: ? Ordering Physician: Javier,Radha PA ?? Date of Service: 08/20/24 ?? Procedure(s): XR chest 1V ?? Accession Number(s): [id number] ? cc: Radha Javier; Joyce Tapia MD [...] ? DD/ 46 ? TD/TT: 08/20/242046 ? Java Web Application Developer: ? Procedure Note Javed, Michelle - 08/20/[address] [address] XRay Report Signed Patient: Nayely GroverMR#: [id number] 541 : 1960Acct:[id number] Age/Sex: 63 / FADM Date: 08/20/24 Loc: HO.ED Attending Dr: Ordering Physician: Radha Javier Date of Service: 08/20/24 Procedure(s): XR chest 1V Accession Number(s): [id number] cc: Radha Javier; Joyce Tapia MD CLINICAL [...] in OV> 08/20/242048 DD/ 46 TD/TT: 08/20/242046 Java Web Application Developer: [facility] External Provider IMG XR PROCEDURES Edited Result - Final * SARS-CoV-2 RNA, Influenza A/B, and RSV RNA, Ql NAAT (08/20/2024 7:41 PM EST) Influenza A PCR NEGATIVE Negative [facility] Influenza B PCR NEGATIVE Negative [facility] Resp Syncy Virus RNA Qual PCR NEGATIVE Negative [facility] SARS COV2 PCR NEGATIVE Negative [...] use by authorized laboratories.Testing performed on the [employer] GeneXpert utilizingreal-time RT-PCR.All SARS CoV2 and positive influenza A/B results arereported to [facility]. 08/20/2024 7:41 PM EST 08/20/2024 7:44 PM EST us Generic External Data Provider LAB MICROBIOLOGY - GENERAL ORDERABLES Final Result [facility] [address] [place] [phone] * (ABNORMAL) CBC auto differential (08/20/2024 7:41 PM EST) White Blood Count 6.8 4.8 - 10.8 X10*3/uL [facility] Red Blood Count 4.18(L) 4.20 - 5.50 X10*6/uL [facility] Hemoglobin 12.4 12.0 - 16.0 g/dl [facility] Hematocrit 36.7(L) 37.0 - 47.0 % [facility] Mean Corpuscular Volume 87.8 80.0 - 98.0 fL [facility] Mean Corpuscular Hemoglobin 29.7 27.0 - 33.0 pg [facility] Mean Corpuscular HGB Conc 33.8 31.0 - 35.0 g/dl [facility] Red Cell Distribution Width 12.5 11.0 - 16.0 % [facility] Platelet Count 156(L) 160 - 400 X10*3/uL [facility] Mean Platelet Volume 10.2 9.4 - 12.3 fL [facility] Neutrophils Percent Auto 80.2(H) 45 - 73 % [facility] Imm Gran Pct Auto 0.1 0.0 - 0.4 % [facility] Lymphocytes Percent Auto 9.1(L) 20 - 40 % [facility] Monocytes Percent Auto 7.5 2 - 11 % [facility] Eosinophils Percent Auto 2.8 0 - 4 % [facility] Basophils Percent Auto 0.3 0 - 2 % [facility] NRBC Pct Auto 0.0 0.0 - 0.2 /100WBC [facility] Neutrophils Absolute Auto 5.5 2.0 - 8.3 x10*3/uL [facility] Imm Gran Abs Auto 0.01 0.00 - 0.03 X10*3/uL [facility] Lymphocytes Absolute Auto 0.6(L) 1.2 - 4.9 X10*3/uL [facility] Monocytes Absolute Auto 0.5 0.1 - 1.2 X10*3/uL [facility] Eosinophils Absolute Auto 0.2 0.0 - 0.4 X10*3/uL [facility] Basophils Absolute Auto 0.0 0.0 - 0.2 X10*3/uL [facility] NRBC Abs Auto 0.000 0.0 - 0.012 X10*3/uL [facility] 08/20/2024 7:41 PM EST 08/20/2024 7:44 PM EST us Generic External Data Provider LAB BLOOD ORDERAB LES Final Result [facility] [address] [place] [phone] * B Type Natriuretic Peptide (BNP) (08/20/2024 7:41 PM EST) B Type Natriuretic Peptide 34 <100 pg/mL [facility] Comment:For those patients w ho are being treated with Natrecor(nesiritide, recombinant BNP), BNP testing should beperformed at least two hours post treatment in order toensure that only endogenous levels of BNP are detected. 08/20/2024 7:41 PM EST 08/20/2024 7:44 PM EST us Generic External Data Provider LAB BLOOD ORDERAB LES Final Result Performing Organization Address [facility] [place] Phone Number [facility] [address] [place] [phone] * Magnesium (08/20/2024 7:41 PM EST) Magnesium 1.9 1.6 - 2.6 mg/dL [facility] 08/20/2024 7:41 PM EST 08/20/2024 7:44 PM EST us Generic External Data Provider LAB BLOOD ORDERAB LES Final Result Performing Organization Address [facility] Phone Number [facility] [address] [place] [phone] * Hepatic Function Panel (08/20/2024 7:41 PM EST) Bilirubin, Total 0.4 0.0 - 1.0 mg/dL [facility] Bilirubin, Direct 0.2 0.0 - 0.5 mg/dL [facility] Aspartate Amino Transferase 21 5 - 31 U/L [facility] Alanine Aminotransferase 24 0 - 31 U/L [facility] Total Protein 6.5 6.5 - 8.0 g/dL [facility] Albumin Level 3.7 3.5 - 5.0 g/dL [facility] Alkaline Phosphatase 78 39 - 117 U/L [facility] 08/20/2024 7:41 PM EST 08/20/2024 7:44 PM EST us Generic External Data Provider LAB BLOOD ORDERAB LES Final Result Performing Organization Address [facility]/State/ZIP Co de Phone Number [facility] [address] [place] [address] [phone] * (ABNORMAL) Basic Metabolic Panel (08/20/2024 7:41 PM EST) Sodium 138 135 - 145 mmol/L [facility] Potassium 3.7 3.3 - 5.1 mmol/L [facility] Chloride 104 96 - 108 mmol/L [facility] Carbon Dioxide 27 22 - 29 mmol/L [facility] Anion Gap 11(L) 12 - 20 [facility] Urea Nitrogen (BUN) 12 9 - 16 mg/dL [facility] Creatinine, Serum 0.69 0.5 - 1.4 mg/dL [facility] Creatinine Clr Calc Pharmacy 80.2 [facility] Comment:Provided height and weight: 157.48 cm,73.3 kg.eGFR (calculated from the MDRD study equation) and eCrCl(calculated from the Cockcroft-Gault equation) are based ondifferent parameters and may not yield comparable results.If eCrCl result is absurd, please check patient'sheight/weight. Estimated Glomerular Filt Rate >60 [facility] Comment:Chronic Kidney Disea se: Estimated GFR < 60 mL/min/1.24p5Hdqjej Kidney Disease: Estimated GFR < 15 mL/min/1.73m2 Glucose 119(H) 60 - 115 mg/dL [facility] Calcium 8.6 8.4 - 10.2 mg/dL [facility] 08/20/2024 7:41 PM EST 08/20/2024 7:44 PM EST us Generic External Data Provider LAB BLOOD ORDERAB LES Final Result [facility] [address] [place] [address] [phone] * BI Mammogram Screening Tomosynthesis Bilateral (05/28/2023 8:58 AM EST) Anatomical Region Laterality Modality Breast Bilateral Mammography 05/28/2023 8:5 8 AM EST Narrative 06/03/2023 8:41 AM EST ? [facility] ? [address] ?[place] [address] ? Mammography Report ? Signed ? Patient: Grover,Nayely ?MR#: [id number] ?? [id number] ? : 1960 ?Acct:[id number] ? Age/Sex: 62 / F ?ADM Date: 05/28/23 ? Loc: HO.MAMMO ? Attending Dr: Joyce Tapia MD ? Ordering Physician: Joyce Tapia MD ?Results: 1Negati ?? ve ? Date of Service: 05/28/23 ?Follow Up: 1 Year From Orig ?? inal Mammogram ? Procedure(s): MM tomosynthesis screening BI ?? Accession Number(s): [id number] ? cc: Joyce Tapia MD ? EXAMINATION: [...] 06/03/23836 ? DD/ 0858 ? TD/TT: ? Java Web Application Developer: ? Procedure Note Donno, Image - 06/03/2023 [facility] [address] [place] [address] Mammography Report Signed Patient: Nayely GroverMR#: [id number] : 1960Acct:[id number] Age/Sex: 62 / FADM Date: 05/28/23 Loc: HO.MAMMO Attending Dr: Joyce Tapia MD Ordering Physician: Joyce Tapia MDResults: 1Negati ve Date of Service: 05/28/23Follow Up: 1 Year From Orig inal Mammogram Procedure(s): MM tomosynthesis screening BI Accession Number(s): [id number] cc: Joyce Tapia MD EXAMINATION: MM SCREENING [...] Colon MD in OV> 06/03/2337 DD/ TD/TT: Java Web Application Developer: us Joyce Tapia MD IMG BI PROCEDURES [...] historic and ?? current clinical information. ?? Plating Operator : SEE COMMENT [facility] Comment: JXM, CT(ASCP) CT screening location: [address] ??[id number] Interpretation/R esult: Negative for intraepithelial lesion or malignancy. [employer] [facility] LMP: NONE [facility]IVEN [facility] Prev. BX: NONE [facility]IVEN [facility] Prev. PAP: 12/2016 NIL/NEG [facility] SOURCE: None given [facility] Statement Of Adequacy: SEE COMMENT [facility] Comment: Satisfactory for evaluation. Endocervical/transformation zone component absent. Age and/or menstrual status not provided 03/31/2021 9:0 6 AM EDT Noa MARINO LAB PATHOLOGY ORDERABLES Final Result Performing Organization Address [facility] Co de Phone Number [facility] [address] * HPV mRNA E6/E7 (03/31/2021 9:06 AM EDT) HPV nRNA E6/E7 Not Detected Not Detected [facility] Comment: Methodology: Medical Transcriptionist-Mediated Amplification This assay detects E6/E7 viral messenger RNA (mRNA) from 14 high-risk HPV types (16,18,31,33,35,39,45,51,52,56,58,59,66,68). ? The analytical performance characteristics of this assay have been determined by [employer]. The modifications have not been cleared or approved by the FDA. This assay has been validated pursuant to the CLIA regulations and is used for clinical purposes. ?? For additional information, please refer to http://education.[employer]/faq/AVV362v1 (This link if provided for information/ educational purposes only.) 03/31/2021 9:06 AM EDT Noa Anyi MARINO LAB BLOOD ORDERABLES Patt l Result Performing Organization Address [facility] de Phone Number [facility] [address] * Hm Colonoscopy (02/20/2015) Colonoscopy Normal Normal Narrative Zohra Benavidez - 02/20/2015 Repeat in 10 year Historical Provider HEALTH MAINTENANCE Final Result from Last 3 Months or Most Recently Relevant to Health Maintenance Insurance [facility] Care Teams Roller Coaster Designer Relationship Specialty Start Date End Date Joyce Tapia MD [address] [place] [address] PCP - General Family Medicine 06/19/12
--- OUTSIDE RECORDS SUMMARY | 2024-11-12 09:54 | XMS_ITS | Encounter Summary ---
Author Organization [employer] Address 75 [facility] 7t [place] [address] Care Team Providers Care Assistant Customer Service Manager Name Role Phone Joyce Tapia MD Primary Care Provider [phone] Reason for Visit * Reason Onset Date Comments Med Refill 08/15/2024 Encounter Details Date Type Department Care Team ([facility] st Contact Info) Description 08/15/2024 Refill [facility] MED & PEDS [address] [place], [place] [phone] Joyce Tapia MD 505 [place] [address] Status post surgical removal of nail matrix [...] 9:30 AM EDT Clinical Support [facility] MED & PEDS [address] [place] [address] Katherine Casper, RN 505 [place] [address] 11/28/2024 9:30 AM EDT Medication Management [facility] MED & PEDS [address] [place] [address] Cristal Muhammad, PharmD [address] [place] [address] 02/05/2025 9:00 AM EDT Office Visit [facility] MED & PEDS [address] [place] [address] Ayden Orellana MD 505 [place] [address] documented as of this encounter Visit Diagnoses Diagnosis Status post surgical removal of nail matrix of toe of left foot documented in this encounter Care Teams Assistant Customer Service Manager Relationship Specialty Start Date End Date Joyce Tapia MD 230 [place] [address] PCP - General Family Medicine 06/19/12 documented as of this encounter
--- OUTSIDE RECORDS SUMMARY | 2024-11-12 09:54 | XMS_ITS | Encounter Summary ---
Author Organization [employer] Address 75 [facility] 7t [place] [address] Care Team Providers Care Motor Patrol Operator Name Role Phone Joyce Tapia MD Primary Care Provider [phone] Reason for Visit * Reason Onset Date Comments Med Refill 04/25/2024 Encounter Details Date Type Department Care Team ([facility] st Contact Info) Description 04/25/2024 Telephone [facility] MEDICINE [address] [place], [place] [phone] Joyce Tapia MD [address] [place], [place] [phone] Med Refill Social History Tobacco Use Types [...] encounter Miscellaneous Notes * Telephone Encounter - Johnsanta Steven - 04/25/2024 8:24 AM EDT TC from pt requesting medication refill. Medications needing refill : oxyCODONE (Roxicodone) 5 MG To be sent to: [facility] documented in this encounter Plan of Treatment Upcoming Encounters Date Type Department Care Team (Late st Contact Info) Description 11/14/2024 9:30 AM EDT Clinical Support [facility] MED & PEDS [address] [place] [address] Katherine Casper RN 505 [place] [address] 11/28/2024 9:30 AM EDT Medication Management [facility] MED & PEDS [address] [place] [address] Cristal Muhammad PharmD 230 [place] [address] 02/05/2025 9:00 AM EDT Office Visit [facility] MED & PEDS [address] [place] [address] Ayden Orellana MD 505 [place] [address] documented as of this encounter Visit Diagnoses Not on filedocumented in this encounter Care Teams Motor Patrol Operator Relationship Specialty Start Date End Date Joyce Tapia MD [address] [place] [address] PCP - General Family Medicine 06/19/12 documented as of this encounter
--- OUTSIDE RECORDS SUMMARY | 2024-11-12 09:54 | XMS_ITS | Encounter Summary ---
Author Organization [employer] Address 75 [facility] 7t [place] [address] Care Team Providers Care Welder Boilermaker Name Role Phone Joyce Tapia MD Primary Care Provider [phone] Reason for Visit * Reason Comments Med Refill Encounter Details Date Type Department Care Team (Late Contact Info) Description 10/03/2023 Refill [facility] MED & PEDS [address] [place] [address] Joyce Tapia MD [address] [place] [address] Arthropathy Social History Tobacco Use Types Packs/Day [...] [facility] [address] [place] [address] Katherine Casper RN 505 [place] [address] 11/28/2024 9:30 AM EDT Medication Management [facility] MED & PEDS [address] [place] [address] Cristal Muhammad PharmD [address] [place] [address] 02/05/2025 9:00 AM EDT Office Visit [facility] CHC MED & PEDS [address] [place] [address] Ayden Orellana MD 505 [place] [address] documented as of this encounter Visit Diagnoses Diagnosis Arthropathy Unspecified arthropathy, site unspecified documented in this encounter Care Teams Welder Boilermaker Relationship Specialty Start Date End Date Joyce Tapia MD [address] [place] [address] PCP - General Family Medicine 06/19/12 documented as of this encounter
--- OUTSIDE RECORDS SUMMARY | 2024-11-12 09:54 | XMS_ITS | Encounter Summary ---
Author Organization [employer] Address 75 [facility] 7t [place] [address] Care Team Providers Care Insulation And Flooring Assembler Name Role Phone Joyce Tapia MD Primary Care Provider [phone] Reason for Visit * Reason Onset Date Comments Med Refill 07/13/2024 Encounter Details Date Type Department Care Team ([facility] st Contact Info) Description 07/13/[address] [facility] CHC MED & PEDS [address] [place], [place] [phone] Joyce Tapia MD 505 [place] [address] Social History Tobacco Use Types Packs/Day Years [...] [facility] MED & PEDS [address] [place] [address] Katherine Casper, MAKEDA 505 [place] [address] 11/28/2024 9:30 AM EDT Medication Management [facility] MED & PEDS 505 [place] [address] Cristal Muhammad, PharmD 230 [place] [address] 02/05/2025 9:00 AM EDT Office Visit [facility] MED & PEDS [address] [place] [address] Ayden Orellana MD 505 [place] [address] documented as of this encounter Visit Diagnoses Not on filedocumented in this encounter Care Teams Insulation And Flooring Assembler Relationship Specialty Start Date End Date Joyce Tapia MD 230 [place] [address] PCP - General Family Medicine 06/19/12 documented as of this encounter
--- OUTSIDE RECORDS SUMMARY | 2024-11-12 09:54 | XMS_ITS | Encounter Summary ---
Author Organization [employer] Address 75 [facility] 7t [place] [address] Care Team Providers Care Vaccine Manager Name Role Phone Joyce Tapia MD Primary Care Provider [phone] Reason for Visit * Reason Onset Date Comments Med Refill 10/24/2023 Encounter Details Date Type Department Care Team ([facility] st Contact Info) Description 10/24/2023 Telephone [facility] MEDICINE [address] [place], [place] [phone] Joyce Tapia MD [address] [place], [place] [phone] Med Refill Social History Tobacco Use Types [...] tablet To be sent to: [facility] [place] - [address] [facility] documented in this encounter Plan of Treatment Upcoming Encounters Date Type Department Care Team (Late st Contact Info) Description 11/14/2024 9:30 AM EDT Clinical Support [facility] MED & PEDS 505 [place] [address] Katherine Casper RN 505 [place] [address] 11/28/2024 9:30 AM EDT Medication Management [facility] MED [facility]ED[facility] 505 [place] [address] Cristal Muhammad PharmD 230 [place] [address] 02/05/2025 9:00 AM EDT Office Visit [facility] MED & PEDS [address] [place] [address] Ayden Orellana MD 505 [place] [address] documented as of this encounter Visit Diagnoses Not on filedocumented in this encounter Care Teams Vaccine Manager Relationship Specialty Start Date End Date Joyce Tapia MD 230 [place] [address] PCP - General Family Medicine 06/19/12 documented as of this encounter
--- OUTSIDE RECORDS SUMMARY | 2024-11-12 09:54 | XMS_ITS | Encounter Summary ---
Author Organization [employer] Address 75 [facility] 7t [place] [address] Care Team Providers Care Contact Center Agent Name Role Phone Joyce Tapia MD Primary Care Provider [phone] Reason for Visit * Reason Onset Date Comments Med Refill 05/28/2024 Encounter Details Date Type Department Care Team ([facility] st Contact Info) Description 05/28/2024 Refill [facility] CHC MED & PEDS [address] [place], [place] [phone] Joyce Tapia MD 505 [place] [address] Status post surgical removal of [...] [facility] [address] [place] [address] Katherine Casper, RN 505 [place] [address] 11/28/2024 9:30 AM EDT Medication Management [facility] MED [facility] PED[facility] [address] [place] [address] Cristal Muhammad, PharmD 230 [place] [address] 02/05/2025 9:00 AM EDT Office Visit [facility] MED & PEDS [address] [place] [address] Ayden Orellana MD 505 [place] [address] documented as of this encounter Visit Diagnoses Diagnosis Status post surgical removal of nail matrix of toe of left foot documented in this encounter Care Teams Contact Center Agent Relationship Specialty Start Date End Date Joyce Tapia MD 230 [place] [address] PCP - General Family Medicine 06/19/12 documented as of this encounter
--- OUTSIDE RECORDS SUMMARY | 2024-11-12 09:54 | XMS_ITS | Encounter Summary ---
Author Organization [employer] Address 75 [facility] 7t [place] [address] Care Team Providers Care Inside Sales Engineer Name Role Phone Joyce Tapia MD Primary Care Provider [phone] Reason for Visit * Reason Comments Med Refill Encounter Details Date Type Department Care Team (Late st Contact Info) Description 10/11/2023 Refill [facility] MEDICINE 230 [place], [place] [phone] Ayden Orellana MD 505 [place] [address] Status post surgical removal of nail matrix [...] Description 11/14/2024 9:30 AM EDT Clinical Support [facility] MED & PEDS 505 [place] [address] Katherine Casper RN 505 [place], [place] [phone] 11/28/2024 9:30 AM EDT Medication Management [facility] MED & PEDS [address] [place] [address] Cristal Muhammad PharmD 230 [place] [address] 02/05/2025 9:00 AM EDT Office Visit [facility] MED & PEDS [address] [place] [address] Ayden Orellana MD [address] [place] [address] documented as of this encounter Visit Diagnoses Diagnosis Status post surgical removal of nail matrix of toe of left foot documented in this encounter Care Teams Inside Sales Engineer Relationship Specialty Start Date End Date Joyce Tapia MD [address] [place] [address] PCP - General Family Medicine 06/19/12 documented as of this encounter
--- OUTSIDE RECORDS SUMMARY | 2024-11-12 09:54 | XMS_ITS | Encounter Summary ---
Author Organization [employer] Address 75 [facility] 7t [place] [address] Care Team Providers Care Senior Systems Developer Name Role Phone Joyce Tapia MD Primary Care Provider [phone] Reason for Visit * Reason Onset Date Comments Med Refill 04/19/2023 Encounter Details Date Type Department Care Team (Late st Contact Info) Description 04/19/2023 Telephone [facility] CH[facility] MED & PEDS 505 [place] [address] Joyce Tapia MD 505 [place] [address] Med Refill Social History Tobacco Use Types [...] [facility] 505 [place] [address] Katherine Casper, MAKEDA 505 [place] [address] 11/28/2024 9:30 AM EDT Medication Management [facility] MED & PEDS 505 [place] [address] Cristal Muhammad PharmD 230 [place] [address] 02/05/2025 9:00 AM EDT Office Visit [facility] MED & PEDS 505 [place] [address] Ayden Orellana MD 505 [place] [address] documented as of this encounter Visit Diagnoses Not on filedocumented in this encounter Care Teams Senior Systems Developer Relationship Specialty Start Date End Date Joyce Tapia MD 230 [place] [address] PCP - General Family Medicine 06/19/12 documented as of this encounter
--- OUTSIDE RECORDS SUMMARY | 2024-11-12 09:54 | XMS_ITS | Encounter Summary ---
Author Organization [employer] Address 75 [facility] 7t [place] [address] Care Team Providers Care [employer] Principal Name Role Phone Joyce Tapia MD Primary Care Provider [phone] Reason for Visit * Reason Onset Date Comments Med Refill 07/13/2024 Encounter Details Date Type Department Care Team ([facility] st Contact Info) Description 07/13/2024 Refill [facility] MEDICINE 230 [place], [place] [phone] Amber Palacio MD [address] [place], [place] [phone] Smoker Social History Tobacco Use Types Packs/Day [...] 9:30 AM EDT Clinical Support [facility] MED & PEDS 505 [place] [address] Katherine Casper, MAKEDA 505 [place] [address] 11/28/2024 9:30 AM EDT Medication Management [facility] MED & PEDS 505 [place] [address] Cristal Muhammad, PharmD 230 [place] [address] 02/05/2025 9:00 AM EDT Office Visit [facility] MED & PEDS [address] [place] [address] Ayden Orellana MD 505 [place] [address] documented as of this encounter Visit Diagnoses Diagnosis Smoker Tobacco use disorder documented in this encounter Care Teams Elementary [employer] Principal Relationship Specialty Start Date End Date Joyce Tapia MD [address] [place] [address] PCP - General Family Medicine 06/19/12 documented as of this encounter
--- OUTSIDE RECORDS SUMMARY | 2024-11-12 09:54 | XMS_ITS | Encounter Summary ---
Author Organization [employer] Address 75 [facility] 7t [place] [address] Care Team Providers Care Stage Set Up Worker Name Role Phone Joyce Tapia MD Primary Care Provider [phone] Reason for Visit * Reason Onset Date Comments Med Refill 06/05/2024 Encounter Details Date Type Department Care Team (Late st Contact Info) Description 06/05/2024 Refill [facility] MEDICINE [address] [place] [address] Joyce Tapia MD [address] [place], [place] [phone] Status post surgical removal of nail matrix [...] Description 11/14/2024 9:30 AM EDT Clinical Support [facility] MED & PEDS 505 [place] [address] Katherine Casper, MAKEDA 505 [place] [address] 11/28/2024 9:30 AM EDT Medication Management [facility] MED & PEDS [address] [place] [address] Cristal Muhammad, PharmD 230 [place] [address] 02/05/2025 9:00 AM EDT Office Visit [facility] MED & PEDS [address] [place] [address] Ayden Orellana MD 505 [place] [address] documented as of this encounter Visit Diagnoses Diagnosis Status post surgical removal of nail matrix of toe of left foot documented in this encounter Care Teams Stage Set Up Worker Relationship Specialty Start Date End Date Joyce Tapia MD 230 [place] [address] PCP - General Family Medicine 06/19/12 documented as of this encounter
--- OUTSIDE RECORDS SUMMARY | 2024-11-12 09:54 | XMS_ITS | Encounter Summary ---
Author Organization [employer] Address 75 [facility] 7t [place] [address] Care Team Providers Care Operations Support Analyst Name Role Phone Joyce Tapia MD Primary Care Provider [phone] Reason for Visit * Reason Onset Date Comments Med Refill 09/11/2024 Encounter Details Date Type Department Care Team ([facility] st Contact Info) Description 09/11/2024 Telephone [facility] MEDICINE 230 [place], [place] [phone] Joyce Tapia MD [address] [place], [place] [phone] Med Refill Social History Tobacco Use Types [...] release tablet To be sent to: [facility]/pharmacy #[id number] N[place]UL RYDER - [address] [facility] documented in this encounter Plan of Treatment Upcoming Encounters Date Type Department Care Team ([facility] st Contact Info) Description 11/14/2024 9:30 AM EDT Clinical Support [facility] MED & PEDS [address] [place] [address] Katherine Casper, RN 505 [place] [address] 11/28/2024 9:30 AM EDT Medication Management [facility] MED & PEDS 505 [place] [address] Cristal Muhammad, PharmD 230 [place] [address] 02/05/2025 9:00 AM EDT Office Visit [facility] MED & PEDS [address] [place] [address] Ayden Orellana MD [address] [place] [address] documented as of this encounter Visit Diagnoses Not on filedocumented in this encounter Care Teams Operations Support Analyst Relationship Specialty Start Date End Date Joyce Tapia MD [address] [place] [address] PCP - General Family Medicine 06/19/12 documented as of this encounter
--- OUTSIDE RECORDS SUMMARY | 2024-11-12 09:54 | XMS_ITS | Encounter Summary ---
Author Organization [employer] Address 75 [facility] 7t [place] [address] Care Team Providers Care Bar Waiter/Waitress Name Role Phone Joyce Tapia MD Primary Care Provider [phone] Reason for Visit * Reason Onset Date Comments Med Refill 10/25/2024 Encounter Details Date Type Department Care Team ([facility] st Contact Info) Description 10/25/2024 Refill [facility] CH[facility] MED & PEDS [address] [place], [place] [phone] Joyce Tapia MD 505 [place] [address] Social History Tobacco Use Types Packs/Day Years [...] 11/14/2024 9:30 AM EDT Clinical Support [facility] MED & PEDS 505 [place] [address] Katherine Casper, MAKEDA 505 [place] [address] 11/28/2024 9:30 AM EDT Medication Management [facility] MED & PEDS 505 [place] [address] Cristal Muhammad, PharmD 230 [place] [address] 02/05/2025 9:00 AM EDT Office Visit [facility] MED & PEDS 505 [place] [address] Ayden Orellana MD 505 [place] [address] documented as of this encounter Visit Diagnoses Not on filedocumented in this encounter Additional Health Concerns Assessment Noted Time PHQ-9 Depression Total Score: 7 09/15/19 25 9:02 AM EDT documented as of this encounter Care Teams Bar Waiter/Waitress Relationship Specialty Start Date End Date Joyce Tapia MD [address] [place] [address] PCP - General Family Medicine 06/19/12 documented as of this encounter
--- OUTSIDE RECORDS SUMMARY | 2024-11-12 09:54 | XMS_ITS | Encounter Summary ---
Author Organization [employer] Address 75 [facility] 7t [place] [address] Care Team Providers Care Senior Linux Unix Administrator Name Role Phone Joyce Tapia MD Primary Care Provider [phone] Encounter Details Date Type Department Care Team (Latest Contact Info) Description 03/21/2019 Abstract [facility] CONVERSIONS Dental, Provider, DDS Social History Tobacco [...] Upcoming Encounters Date Type Department Care Team ( st Contact Info) Description 11/14/2024 9:30 AM EDT Clinical Support [facility] MED & PEDS [address] [place] [address] Katherine Casper RN 505 [place] [address] 11/28/2024 9:30 AM EDT Medication Management [facility] MED & PEDS 505 [place] [address] Cristal Muhammad, BobD 230 [place] [address] 02/05/2025 9:00 AM EDT Office Visit [facility] MED & PEDS 505 [place] [address] Ayden Orellana MD [address] [place] [address] documented as of this encounter Visit Diagnoses Not on filedocumented in this encounter Care Teams Senior Linux Unix Administrator Relationship Specialty Start Date End Date Joyce Tapia MD [address] [place] [address] PCP - General Family Medicine 06/19/12 documented as of this encounter
--- OUTSIDE RECORDS SUMMARY | 2024-11-12 09:54 | XMS_ITS | Encounter Summary ---
Author Organization [employer] Address 75 [facility] 7t [place] [address] Care Team Providers Care Assistant Speech Language Pathologist Name Role Phone Joyce Tapia MD Primary Care Provider [phone] Reason for Visit * Reason Onset Date Comments Med Refill 05/08/2024 Encounter Details Date Type Department Care Team ([facility] st Contact Info) Description 05/08/2024 Refill [facility] MEDICINE 230 [place] [address] Joyce Tapia MD [address] [place], [place] [phone] Muscle spasm Social History Tobacco Use Types [...] 9:30 AM EDT Clinical Support [facility] MED & PEDS 505 [place] [address] Katherine Casper, MAKEDA 505 [place] [address] 11/28/2024 9:30 AM EDT Medication Management [facility] MED & PEDS 505 [place] [address] Cristal Muhammad, PharmD 230 [place] [address] 02/05/2025 9:00 AM EDT Office Visit [facility] MED & PEDS 505 [place] [address] Ayden Orellana MD 505 [place] [address] documented as of this encounter Visit Diagnoses Diagnosis Muscle spasm Spasm of muscle documented in this encounter Care Teams Assistant Speech Language Pathologist Relationship Specialty Start Date End Date Joyce Tapia MD 230 [place] [address] PCP - General Family Medicine 06/19/12 documented as of this encounter
--- OUTSIDE RECORDS SUMMARY | 2024-11-12 09:54 | XMS_ITS | Encounter Summary ---
Author Organization [employer] Address 75 [facility] 7t [place] [address] Care Team Providers Care Screener And Blender Name Role Phone Joyce Tapia MD Primary Care Provider [phone] Reason for Visit * Reason Onset Date Comments Med Refill 10/24/2024 Encounter Details Date Type Department Care Team (Late st Contact Info) Description 10/24/2024 Refill [facility] MEDICINE 230 [place] [address] Ayden Orellana MD 505 [place] [address] Status post surgical removal of nail matrix [...] Upcoming Encounters Date Type Department Care Team ([facility] st Contact Info) Description 11/14/2024 9:30 AM EDT Clinical Support [facility] MED & PEDS 505 [place] [address] Katherine Casper, MAKEDA 505 [place] [address] 11/28/2024 9:30 AM EDT Medication Management [facility] MED & PEDS 505 [place] [address] Cristal Muhammad PharmD 230 [place] [address] 02/05/2025 9:00 AM EDT Office Visit [facility] MED & PEDS 505 [place] [address] Ayden Orellana MD 505 [place] [address] documented as of this encounter Visit Diagnoses Diagnosis Status post surgical removal of nail matrix of toe of left foot documented in this encounter Additional Health Concerns Assessment Noted Time PHQ-9 Depression Total Score: 7 09/15/19 25 9:02 AM EDT documented as of this encounter Care Teams Screener And Blender Relationship Specialty Start Date End Date Joyce Tapia MD [address] [place] [address] PCP - General Family Medicine 06/19/12 documented as of this encounter
--- OUTSIDE RECORDS SUMMARY | 2024-11-12 09:54 | XMS_ITS | Encounter Summary ---
Author Organization [employer] Address 75 [facility] 7t [place] [address] Care Team Providers Care Manager Product Support Name Role Phone Joyce Tapia MD Primary Care Provider [phone] Reason for Visit * Reason Comments Med Refill Encounter Details Date Type Department Care Team (Late st Contact Info) Description 11/04/2023 Refill [facility] MED & PEDS 505 [place] [address] Joyce Tapia MD 505 [place] [address] Status post surgical removal of nail matrix [...] 9:30 AM EDT Clinical Support [facility] MED & PEDS 505 [place] [address] Katherine Casper RN 505 [place], [place] [phone] 11/28/2024 9:30 AM EDT Medication Management [facility] MED & PEDS 505 [place] [address] Cristal Muhammad PharmD 230 [place] [address] 02/05/2025 9:00 AM EDT Office Visit [facility] MED & PEDS 505 [place] [address] Ayden Orellana MD 505 [place] [address] documented as of this encounter Visit Diagnoses Diagnosis Status post surgical removal of nail matrix of toe of left foot documented in this encounter Care Teams Manager Product Support Relationship Specialty Start Date End Date Joyce Tapia MD [address] [place] [address] PCP - General Family Medicine 06/19/12 documented as of this encounter
--- OUTSIDE RECORDS SUMMARY | 2024-11-12 09:54 | XMS_ITS | Encounter Summary ---
Author Organization [employer] Address 75 [facility] 7t [place] [address] Care Team Providers Care Mail Sorter Name Role Phone Joyce Tapia MD Primary Care Provider [phone] Reason for Visit * Reason Onset Date Comments Referral 03/09/2023 Encounter Details Date Type Department Care Team ([facility] Contact Info) Description 03/09/2023 Telephone [facility]C MED & PEDS 505 [place], [place] [phone] Joyce Tapia MD 505 [place] [address] Referral Social History Tobacco Use Types Packs/Day [...] wait that long. Please contact pt at [phone] documented in this encounter Plan of Treatment Upcoming Encounters Date Type Department Care Team (Late st Contact Info) Description 11/14/2024 9:30 AM EDT Clinical Support [facility] MED & PEDS 505 [place] [address] Katherine Casper RN 505 [place] [address] 11/28/2024 9:30 AM EDT Medication Management [facility] MED & PEDS 505 [place] [address] Cristal Muhammad PharmD 230 [place] [address] 02/05/2025 9:00 AM EDT Office Visit [facility] MED & PEDS 505 [place] [address] Ayden Orellana MD 505 [place] [address] documented as of this encounter Visit Diagnoses Not on filedocumented in this encounter Care Teams Mail Sorter Relationship Specialty Start Date End Date Joyce Tapia MD 230 [place] [address] PCP - General Family Medicine 06/19/12 documented as of this encounter
--- OUTSIDE RECORDS SUMMARY | 2024-11-12 09:54 | XMS_ITS | Encounter Summary ---
Author Organization [employer] Address 75 [facility] 7t [place] [address] Care Team Providers Care Kaiawhina Kohanga Reo Name Role Phone Joyce Tapia MD Primary Care Provider [phone] Reason for Visit * Reason Onset Date Comments Med Refill 05/21/2024 Encounter Details Date Type Department Care Team ([facility] st Contact Info) Description 05/21/2024 Refill [facility] CHC MED & PEDS 505 [place], [place] [phone] Joyce Tapia MD 505 [place] [address] Social History Tobacco Use Types Packs/Day Years [...] 11/14/2024 9:30 AM EDT Clinical Support [facility] MED & PEDS 505 [place] [address] Katherine Casper, MAKEDA 505 [place] [address] 11/28/2024 9:30 AM EDT Medication Management [facility] MED & PEDS 505 [place] [address] Cristal Muhammad, PharmD 230 [place] [address] 02/05/2025 9:00 AM EDT Office Visit [facility] MED & PEDS 505 [place] [address] Ayden Orellana MD 505 [place] [address] documented as of this encounter Visit Diagnoses Not on filedocumented in this encounter Care Teams Kaiawhina Kohanga Reo Relationship Specialty Start Date End Date Joyce Tapia MD 230 [place] [address] PCP - General Family Medicine 06/19/12 documented as of this encounter
--- OUTSIDE RECORDS SUMMARY | 2024-11-12 09:54 | XMS_ITS | Encounter Summary ---
Author Organization [employer] Address 75 [facility] 7t [place] [address] Care Team Providers Care Distillery Laborer Name Role Phone Joyce Tapia MD Primary Care Provider [phone] Reason for Visit * Reason Onset Date Comments Med Refill 09/05/2024 Encounter Details Date Type Department Care Team ([facility] st Contact Info) Description 09/05/2024 Refill [facility] CHC MED & PEDS 505 [place], [place] [phone] Joyce Tapia MD 505 [place] [address] Status post surgical removal of nail matrix [...] [facility] MED & PEDS 505 [place] [address] Katherine Casper, RN 505 [place] [address] 11/28/2024 9:30 AM EDT Medication Management [facility] MED & PEDS 505 [place] [address] Cristal Muhammad, PharmD 230 [place] [address] 02/05/2025 9:00 AM EDT Office Visit [facility] MED & PEDS [address] [place] [address] Ayden Orellana MD 505 [place] [address] documented as of this encounter Visit Diagnoses Diagnosis Status post surgical removal of nail matrix of toe of left foot documented in this encounter Care Teams Distillery Laborer Relationship Specialty Start Date End Date Joyce Tapia MD 230 [place] [address] PCP - General Family Medicine 06/19/12 documented as of this encounter
--- OUTSIDE RECORDS SUMMARY | 2024-11-12 09:54 | XMS_ITS | Encounter Summary ---
Author Organization [employer] Address 75 [facility] 7t [place] [address] Care Team Providers Care Ground Mixer Name Role Phone Joyce Tapia MD Primary Care Provider Reason for Visit * Reason Onset Date Comments Med Refill 07/27/2024 Encounter Details Date Type Department Care Team (Late st Contact Info) Description 07/27/[address] [facility] MEDICINE 230 [place] [address] Emerson Keith MD 505 [place], [place] [phone] Status post surgical removal of nail matrix [...] EDT Clinical Support [facility] MED & PEDS 505 [place] [address] Katherine Casper, RN 505 [place] [address] 11/28/2024 9:30 AM EDT Medication Management [facility] MED & PEDS 505 [place] [address] Cristal Muhammad, PharmD 230 [place] [address] 02/05/2025 9:00 AM EDT Office Visit [facility] MED & PEDS [address] [place] [address] Ayden Orellana MD 505 [place] [address] documented as of this encounter Visit Diagnoses Diagnosis Status post surgical removal of nail matrix of toe of left foot documented in this encounter Care Teams Ground Mixer Relationship Specialty Start Date End Date Joyce Tapia MD 230 [place] [address] PCP - General Family Medicine 06/19/12 documented as of this encounter
--- OUTSIDE RECORDS SUMMARY | 2024-11-12 09:54 | XMS_ITS | Encounter Summary ---
Author Organization [employer] Address 75 [facility] 7t [place] [address] Care Team Providers Care Java Sdet Name Role Phone Joyce Tapia MD Primary Care Provider [phone] Reason for Visit * Reason Comments Med Refill Encounter Details Date Type Department Care Team (Late Contact Info) Description 07/29/2023 Refill [facility] MEDICINE 230 [place], [place] [phone] Joyce Tapia MD 505 [place] [address] Status post surgical removal of nail matrix [...] Department Care Team (Late Contact Info) Description 11/14/2024 9:30 AM EDT Clinical Support [facility] CHC MED & PEDS 505 [place] [address] Katherine Casper RN 505 [place] [address] 11/28/2024 9:30 AM EDT Medication Management [facility] MED & PEDS 505 [place] [address] Cristal Muhammad PharmD 230 [place] [address] 02/05/2025 9:00 AM EDT Office Visit [facility] MED & PEDS 505 [place] [address] Ayden Orellana MD 505 [place] [address] documented as of this encounter Visit Diagnoses Diagnosis Status post surgical removal of nail matrix of toe of left foot documented in this encounter Care Teams Java Sdet Relationship Specialty Start Date End Date Joyce Tapia MD 230 [place] [address] PCP - General Family Medicine 06/19/12 documented as of this encounter
--- OUTSIDE RECORDS SUMMARY | 2024-11-12 09:54 | XMS_ITS | Encounter Summary ---
Author Organization [employer] Address 75 [facility] 7t [place] [address] Care Team Providers Care Cotton Dispatcher Name Role Phone Joyce Tapia MD Primary Care Provider [phone] Reason for Visit * Reason Comments Med Refill Encounter Details Date Type Department Care Team (Late Contact Info) Description 10/24/2023 Refill [facility] MEDICINE 230 [place], [place] [phone] Joyce Tapia MD 505 [place] [address] Status post surgical removal of nail matrix [...] Description 11/14/2024 9:30 AM EDT Clinical Support [facility] CHC MED & PEDS 505 [place] [address] Katherine Casper RN 505 [place] [address] 11/28/2024 9:30 AM EDT Medication Management [facility] MED & PEDS 505 [place] [address] Cristal Muhammad PharmD 230 [place] [address] 02/05/2025 9:00 AM EDT Office Visit [facility] MED & PEDS 505 [place] [address] Ayden Orellana MD 505 [place] [address] documented as of this encounter Visit Diagnoses Diagnosis Status post surgical removal of nail matrix of toe of left foot documented in this encounter Care Teams Cotton Dispatcher Relationship Specialty Start Date End Date Joyce Tapia MD 230 [place] [address] PCP - General Family Medicine 06/19/12 documented as of this encounter
--- OUTSIDE RECORDS SUMMARY | 2024-11-12 09:54 | XMS_ITS | Encounter Summary ---
Author Organization [employer] Address 75 [facility] 7t [place] [address] Care Team Providers Care Spinning Room Worker Name Role Phone Joyce Tapia MD Primary Care Provider Reason for Visit * Reason Onset Date Comments Appt 08/09/2024 Encounter Details Date Type Department Care Team ([facility] st Contact Info) Description 08/09/2024 Telephone [facility] MEDICINE 230 [place] [address] Joyce Tapia MD [address] [place], [place] [phone] Appt Social History Tobacco Use Types Packs/Day [...] can be changed for a phone visit. [phone] documented in this encounter Plan of Treatment Upcoming Encounters Date Type Department Care Team ([facility] st Contact Info) Description 11/14/2024 9:30 AM EDT Clinical Support [facility] MED & PEDS 505 [place] [address] Katherine Casper, MAKEDA 505 [place] [address] 11/28/2024 9:30 AM EDT Medication Management [facility] MED & PEDS 505 [place] [address] Cristal Muhammad, PharmD 230 [place] [address] 02/05/2025 9:00 AM EDT Office Visit [facility] MED & PEDS 505 [place] [address] Ayden Orellana MD 505 [place] [address] documented as of this encounter Visit Diagnoses Not on filedocumented in this encounter Care Teams Spinning Room Worker Relationship Specialty Start Date End Date Joyce Tapia MD [address] [place] [address] PCP - General Family Medicine 06/19/12 documented as of this encounter
--- OUTSIDE RECORDS SUMMARY | 2024-11-12 09:55 | XMS_ITS | Encounter Summary ---
Author Organization [employer] Address 75 [facility] 7t [place] [address] Care Team Providers Care Customer Service Engineer Name Role Phone Joyce Tapia MD Primary Care Provider [phone] Reason for Visit * Reason Onset Date Comments Med Refill 09/26/2024 Encounter Details Date Type Department Care Team ([facility] st Contact Info) Description 09/26/2024 Refill [facility]C MED & PEDS 505 [place], [place] [phone] Joyce Tapia MD 505 [place] [address] Status post surgical removal of nail matrix [...] Upcoming Encounters Date Type Department Care Team ([facility] st Contact Info) Description 11/14/2024 9:30 AM EDT Clinical Support [facility] MED & PEDS 505 [place] [address] Katherine Casper, MAKEDA 505 [place] [address] 11/28/2024 9:30 AM EDT Medication Management [facility] MED & PEDS 505 [place] [address] Cristal Muhammad PharmD 230 [place] [address] 02/05/2025 9:00 AM EDT Office Visit [facility] MED & PEDS 505 [place] [address] Ayden Orellana MD 505 [place] [address] documented as of this encounter Visit Diagnoses Diagnosis Status post surgical removal of nail matrix of toe of left foot documented in this encounter Additional Health Concerns Assessment Noted Time PHQ-9 Depression Total Score: 7 09/15/19 25 9:02 AM EDT documented as of this encounter Care Teams Customer Service Engineer Relationship Specialty Start Date End Date Joyce Tapia MD [address] [place] [address] PCP - General Family Medicine 06/19/12 documented as of this encounter
--- OUTSIDE RECORDS SUMMARY | 2024-11-12 09:55 | XMS_ITS | Encounter Summary ---
Author Organization [employer] Address 75 [facility] 7t [place] [address] Care Team Providers Care Cavalry Officer Name Role Phone Joyce Tapia MD Primary Care Provider [phone] Reason for Visit * Reason Onset Date Comments Med Refill 08/01/2024 Encounter Details Date Type Department Care Team (Late st Contact Info) Description 08/01/2024 Refill [facility] MEDICINE 230 [place] [address] Emerson Keith MD 505 [place], [place] [phone] Status post surgical removal of nail matrix [...] 9:30 AM EDT Clinical Support [facility] MED & PEDS 505 [place] [address] Katherine Casper, RN 505 [place] [address] 11/28/2024 9:30 AM EDT Medication Management [facility] MED & PEDS 505 [place] [address] Cristal Muhammad, PharmD 230 [place] [address] 02/05/2025 9:00 AM EDT Office Visit [facility] MED & PEDS [address] [place] [address] Ayden Orellana MD 505 [place] [address] documented as of this encounter Visit Diagnoses Diagnosis Status post surgical removal of nail matrix of toe of left foot documented in this encounter Care Teams Cavalry Officer Relationship Specialty Start Date End Date Joyce Tapia MD 230 [place] [address] PCP - General Family Medicine 06/19/12 documented as of this encounter
--- OUTSIDE RECORDS SUMMARY | 2024-11-12 09:55 | XMS_ITS | Encounter Summary ---
Author Organization [employer] Address 75 [facility] 7t [place] [address] Care Team Providers Care Motel Keeper Name Role Phone Joyce Tapia MD Primary Care Provider [phone] Reason for Visit * Reason Comments Med Refill Encounter Details Date Type Department Care Team (Late Contact Info) Description 06/12/2023 Refill [facility] MED & PEDS 505 [place] [address] Christy Ray MD 505 [place] [address] Muscle spasm Social History Tobacco Use Types [...] 11/14/2024 9:30 AM EDT Clinical Support [facility] MED & PEDS 505 [place] [address] Katherine Casper RN 505 [place], [place] [phone] 11/28/2024 9:30 AM EDT Medication Management [facility] MED & PEDS 505 [place] [address] Cristal Muhammad, BobD 230 [place] [address] 02/05/2025 9:00 AM EDT Office Visit [facility] MED & PEDS 505 [place] [address] Ayden Orellana MD 505 [place] [address] documented as of this encounter Visit Diagnoses Diagnosis Muscle spasm Spasm of muscle documented in this encounter Care Teams Motel Keeper Relationship Specialty Start Date End Date Joyce Tapia MD 230 [place] [address] PCP - General Family Medicine 06/19/12 documented as of this encounter
--- OUTSIDE RECORDS SUMMARY | 2024-11-12 09:55 | XMS_ITS | Encounter Summary ---
Author Organization [employer] Address 75 [facility] 7t [place] [address] Care Team Providers Care Studio Sales Associate Name Role Phone Joyce Tapia MD Primary Care Provider [phone] Encounter Details Date Type Department Care Team (Late Contact Info) Description 05/24/2023 Abstract [facility] MEDICINE [address] [place], [place] [phone] Zohra Benavidez Social History Tobacco Use Types [...] [facility] 505 [place] [address] Katherine Casper, MAKEDA 505 [place] [address] 11/28/2024 9:30 AM EDT Medication Management [facility] MED & PEDS 505 [place] [address] Cristal Muhammad, BobD 230 [place], [place] [phone] 02/05/2025 9:00 AM EDT Office Visit [facility] CHC MED & PEDS 505 [place], [place] [phone] Ayden Orellana MD 505 [place], [place] [phone] documented as of this encounter Procedures Procedure Name Priority Date/Time Associated Diagnosis Comments COLONOSCOPY Routine 02/20/2015 documented in this encounter Results * Hm Colonoscopy (02/20/2015) Colonoscopy Normal Normal Narrative Zohra Benavidez - 02/20/2015 Repeat in 10 year Historical Provider HEALTH MAINTENANCE Final Result documented in this encounter Visit Diagnoses Not on filedocumented in this encounter Care Teams Studio Sales Associate Relationship Specialty Start Date End Date Joyce Tapia MD [address] [place] [address] PCP - General Family Medicine 06/19/12 documented as of this encounter
--- OUTSIDE RECORDS SUMMARY | 2024-11-12 09:55 | XMS_ITS | Encounter Summary ---
Author Organization [employer] Address 75 [facility] 7t [place] [address] Care Team Providers Care Routing Machine Operator Name Role Phone Joyce Tapia MD Primary Care Provider [phone] Reason for Visit * Reason Onset Date Comments Med Refill 09/17/2024 Encounter Details Date Type Department Care Team ([facility] st Contact Info) Description 09/17/[address] [facility] MED & PEDS [address] [place], [place] [phone] Emerson Keith MD 505 [place] [address] Status post surgical removal of nail matrix [...] 9:30 AM EDT Clinical Support [facility] MED & PEDS [address] [place] [address] Katherine Casper, MAKEDA 505 [place] [address] 11/28/2024 9:30 AM EDT Medication Management [facility] MED & PEDS [address] [place] [address] Cristal Muhammad PharmD 230 [place] [address] 02/05/2025 9:00 AM EDT Office Visit [facility] MED & PEDS [address] [place] [address] Ayden Orellana MD 505 [place] [address] documented as of this encounter Visit Diagnoses Diagnosis Status post surgical removal of nail matrix of toe of left foot documented in this encounter Additional Health Concerns Assessment Noted Time PHQ-9 Depression Total Score: 7 09/15/19 25 9:02 AM EDT documented as of this encounter Care Teams Routing Machine Operator Relationship Specialty Start Date End Date Joyce Tapia MD [address] [place] [address] PCP - General Family Medicine 06/19/12 documented as of this encounter
--- OUTSIDE RECORDS SUMMARY | 2024-11-12 09:55 | XMS_ITS | Encounter Summary ---
Author Organization [employer] Address 75 [facility] 7t [place] [address] Care Team Providers Care Greige Goods Inspector Name Role Phone Joyce Tapia MD Primary Care Provider [phone] Encounter Details Date Type Department Care Team ([facility] Contact Info) Description 10/26/2022 Orders Only [facility] MED & PEDS [address] [place], [place] [phone] Emerson Keith MD 505 [place], [place] [phone] Social History Tobacco Use Types Packs/Day Years [...] Upcoming Encounters Date Type Department Care Team ([facility] Contact Info) Description 11/14/2024 9:30 AM EDT Clinical Support [facility] MED & PEDS 505 [place] [address] Katherine Casper RN 505 [place] [address] 11/28/2024 9:30 AM EDT Medication Management [facility] MED & PEDS [address] [place] [address] Cristal Muhammad PharmD 230 [place] [address] 02/05/2025 9:00 AM EDT Office Visit [facility] MED & PEDS [address] [place] [address] Ayden Orellana MD 505 [place] [address] documented as of this encounter Visit Diagnoses Not on filedocumented in this encounter Care Teams Greige Goods Inspector Relationship Specialty Start Date End Date Joyce Tapia MD 230 [place] [address] PCP - General Family Medicine 06/19/12 documented as of this encounter
--- OUTSIDE RECORDS SUMMARY | 2024-11-12 09:55 | XMS_ITS | Encounter Summary ---
Author Organization [employer] Address 75 [facility] 7t [place] [address] Care Team Providers Care Linux Support Engineer Name Role Phone Joyce Tapia MD Primary Care Provider [phone] Reason for Visit * Reason Onset Date Comments Med Refill 05/30/2023 Encounter Details Date Type Department Care Team ([facility] st Contact Info) Description 05/30/[address] [facility] MEDICINE 230 [place], [place] [phone] Joyce Tapia MD [address] [place], [place] [phone] Med Refill Social History Tobacco Use Types [...] oxyCODONE (Roxicodone) 5 MG immediate release tablet [facility] - [place], [place] - [address] documented in this encounter Plan of Treatment Upcoming Encounters Date Type Department Care Team (Late st Contact Info) Description 11/14/2024 9:30 AM EDT Clinical Support [facility] MED & PEDS 505 [place] [address] Katherine Casper RN 505 [place] [address] 11/28/2024 9:30 AM EDT Medication Management [facility] MED & PEDS 505 [place] [address] Cristal Muhammad, BobD 230 [place] [address] 02/05/2025 9:00 AM EDT Office Visit [facility] MED & PEDS 505 [place] [address] Ayden Orellana MD 505 [place] [address] documented as of this encounter Visit Diagnoses Not on filedocumented in this encounter Care Teams Linux Support Engineer Relationship Specialty Start Date End Date Joyce Tapia MD 230 [place] [address] PCP - General Family Medicine 06/19/12 documented as of this encounter
--- OUTSIDE RECORDS SUMMARY | 2024-11-12 09:55 | XMS_ITS | Encounter Summary ---
Author Organization [employer] Address 75 [facility] 7t [place] [address] Care Team Providers Care Bridge Rigger Name Role Phone Joyce Tapia MD Primary Care Provider [phone] Reason for Visit * Reason Onset Date Comments Med Refill 11/12/2024 Encounter Details Date Type Department Care Team ([facility] st Contact Info) Description 11/12/2024 Refill [facility] MEDICINE 230 [place] [address] Joyce Tapia MD [address] [place] [address] Status post surgical removal of nail matrix [...] Upcoming Encounters Date Type Department Care Team ([facility] st Contact Info) Description 11/14/2024 9:30 AM EDT Clinical Support [facility] MED & PEDS 505 [place] [address] Katherine Casper, RN 505 [place] [address] 11/28/2024 9:30 AM EDT Medication Management [facility] MED & PEDS 505 [place] [address] Cristal Muhammad PharmD 230 [place] [address] 02/05/2025 9:00 AM EDT Office Visit [facility] MED & PEDS 505 [place] [address] Ayden Orellana MD 505 [place] [address] documented as of this encounter Visit Diagnoses Diagnosis Status post surgical removal of nail matrix of toe of left foot documented in this encounter Additional Health Concerns Assessment Noted Time PHQ-9 Depression Total Score: 7 09/15/19 25 9:02 AM EDT documented as of this encounter Care Teams Bridge Rigger Relationship Specialty Start Date End Date Joyce Tapia MD [address] [place] [address] PCP - General Family Medicine 06/19/12 documented as of this encounter
--- OUTSIDE RECORDS SUMMARY | 2024-11-12 09:55 | XMS_ITS | Encounter Summary ---
Author Organization [employer] Address 75 [facility] 7t [place] [address] Care Team Providers Care Clerical Car Checker Name Role Phone Joyce Tapia MD Primary Care Provider [phone] Reason for Visit * Reason Comments Med Refill Encounter Details Date Type Department Care Team (Late st Contact Info) Description 06/07/2023 Refill [facility] MED & PEDS 505 [place], [place] [phone] Ev Lewis, ANP 230 [place] [address] Status post surgical removal of nail matrix [...] [facility] MED [facility] PEDS [address] [place] [address] Katherine Casper, MAKEDA 505 [place] [address] 11/28/2024 9:30 AM EDT Medication Management [facility] MED & PEDS [address] [place] [address] Cristal Muhammad PharmD 230 [place] [address] 02/05/2025 9:00 AM EDT Office Visit [facility] MED & PEDS [address] [place] [address] Ayden Orellana MD 505 [place] [address] documented as of this encounter Visit Diagnoses Diagnosis Status post surgical removal of nail matrix of toe of left foot documented in this encounter Care Teams Clerical Car Checker Relationship Specialty Start Date End Date Joyce Tapia MD 230 [place] [address] PCP - General Family Medicine 06/19/12 documented as of this encounter
--- OUTSIDE RECORDS SUMMARY | 2024-11-12 09:55 | XMS_ITS | Encounter Summary ---
Author Organization [employer] Address 75 [facility] 7t [place] [address] Care Team Providers Care Supervising Editor News Reel Name Role Phone Joyce Tapia MD Primary Care Provider [phone] Reason for Visit * Reason Onset Date Comments Med Refill 04/05/2024 Encounter Details Date Type Department Care Team ([facility] st Contact Info) Description 04/05/2024 Refill [facility] MED & PEDS 505 [place], [place] [phone] Joyce Tapia MD 505 [place] [address] Status post surgical removal of nail matrix [...] [facility] 505 [place] [address] Katherine Casper, RN 505 [place] [address] 11/28/2024 9:30 AM EDT Medication Management [facility] MED & PEDS 505 [place] [address] Cristal Muhammad, PharmD 230 [place] [address] 02/05/2025 9:00 AM EDT Office Visit [facility] MED & PEDS [address] [place] [address] Ayden Orellana MD 505 [place] [address] documented as of this encounter Visit Diagnoses Diagnosis Status post surgical removal of nail matrix of toe of left foot documented in this encounter Care Teams Supervising Editor News Reel Relationship Specialty Start Date End Date Joyce Tapia MD 230 [place] [address] PCP - General Family Medicine 06/19/12 documented as of this encounter
--- OUTSIDE RECORDS SUMMARY | 2024-11-12 09:55 | XMS_ITS | Encounter Summary ---
Author Organization [employer] Address 75 [facility] 7t [place] [address] Care Team Providers Care Mica Inspector Name Role Phone Joyce Tapia MD Primary Care Provider [phone] Encounter Details Date Type Department Care Team (Late Contact Info) Description 09/27/2022 Orders Only [facility] MEDICINE 230 [place], [place] [phone] Comfort Estrada LPN Social History Tobacco Use [...] [facility] 505 [place] [address] Katherine Casper, RN 505 [place] [address] 11/28/2024 9:30 AM EDT Medication Management [facility] MED & PEDS 505 [place] [address] Cristal Muhammad PharmD [address] [place] [address] 02/05/2025 9:00 AM EDT Office Visit [facility] MED & PEDS 505 [place] [address] Ayden Orellana MD 505 [place] [address] documented as of this encounter Visit Diagnoses Not on filedocumented in this encounter Care Teams Mica Inspector Relationship Specialty Start Date End Date Joyce Tapia MD [address] [place] [address] PCP - General Family Medicine 06/19/12 documented as of this encounter
--- OUTSIDE RECORDS SUMMARY | 2024-11-12 09:55 | XMS_ITS | Encounter Summary ---
Author Organization [employer] Address 75 [facility] 7t [place] [address] Care Team Providers Care Signals Officer Name Role Phone Joyce Tapia MD Primary Care Provider [phone] Reason for Visit * Reason Onset Date Comments Med Refill 06/28/2023 Encounter Details Date Type Department Care Team ([facility] st Contact Info) Description 06/28/2023 Telephone [facility] MEDICINE 230 [place], [place] [phone] Joyce Tapia MD [address] [place] [address] Med Refill Social History Tobacco Use Types [...] immediate release tablet To be sent to: [facility] - [place], [place] - [address] [facility] documented in this encounter Plan of Treatment Upcoming Encounters Date Type Department Care Team (Late st Contact Info) Description 11/14/2024 9:30 AM EDT Clinical Support [facility] MED & PEDS 505 [place] [address] Katherine Casper RN 505 [place] [address] 11/28/2024 9:30 AM EDT Medication Management [facility] MED & PEDS 505 [place] [address] Cristal Muhammad PharmD 230 [place] [address] 02/05/2025 9:00 AM EDT Office Visit [facility] MED & PEDS 505 [place] [address] Ayden Orellana MD 505 [place] [address] documented as of this encounter Visit Diagnoses Not on filedocumented in this encounter Care Teams Signals Officer Relationship Specialty Start Date End Date Joyce Tapia MD 230 [place] [address] PCP - General Family Medicine 06/19/12 documented as of this encounter
--- OUTSIDE RECORDS SUMMARY | 2024-11-12 09:55 | XMS_ITS | Encounter Summary ---
Author Organization [employer] Address 75 [facility] 7t [place] [address] Care Team Providers Care Rug Layer Name Role Phone Joyce Tapia MD Primary Care Provider Reason for Visit * Reason Comments Med Refill Encounter Details Date Type Department Care Team ([facility] Contact Info) Description 10/25/2022 Refill [facility] MED & PEDS 505 [place], [place] [phone] Jenny Schmidt MD 505 [place] [address] Status post surgical removal of nail matrix [...] Upcoming Encounters Date Type Department Care Team ([facility] Contact Info) Description 11/14/2024 9:30 AM EDT Clinical Support [facility] CHC MED & PEDS 505 [place] [address] Katherine Casper, MAKEDA 505 [place] [address] 11/28/2024 9:30 AM EDT Medication Management [facility] MED & PEDS 505 [place] [address] Cristal Muhammad PharmD 230 [place] [address] 02/05/2025 9:00 AM EDT Office Visit [facility] MED & PEDS 505 [place] [address] Ayden Orellana MD 505 [place] [address] documented as of this encounter Visit Diagnoses Diagnosis Status post surgical removal of nail matrix of toe of left foot documented in this encounter Care Teams Rug Layer Relationship Specialty Start Date End Date Joyce Tapia MD [address] [place] [address] PCP - General Family Medicine 06/19/12 documented as of this encounter
--- OUTSIDE RECORDS SUMMARY | 2024-11-12 09:55 | XMS_ITS | Encounter Summary ---
Author Organization [employer] Address 75 [facility] 7t [place] [address] Care Team Providers Care Ground Crew Supervisor Name Role Phone Joyce Tapia MD Primary Care Provider [phone] Reason for Visit * Reason Onset Date Comments Med Refill 02/28/2024 Encounter Details Date Type Department Care Team ([facility] st Contact Info) Description 02/28/2024 Telephone [facility] MEDICINE 230 [place], [place] [phone] Joyce Tapia MD [address] [place], [place] [phone] Med Refill Social History Tobacco Use Types [...] immediate release tablet To be sent to: [facility] - [place], [place] - [address] [place] [address] documented in this encounter Plan of Treatment Upcoming Encounters Date Type Department Care Team (Late st Contact Info) Description 11/14/2024 9:30 AM EDT Clinical Support [facility] MED & PEDS 505 [place] [address] Katherine Casper, MAKEDA 505 [place] [address] 11/28/2024 9:30 AM EDT Medication Management [facility] MED & PEDS [address] [place] [address] Cristal Muhammad, PharmD [address] [place] [address] 02/05/2025 9:00 AM EDT Office Visit [facility] MED & PEDS 505 [place] [address] Ayden Orellana MD 505 [place] [address] documented as of this encounter Visit Diagnoses Not on filedocumented in this encounter Care Teams Ground Crew Supervisor Relationship Specialty Start Date End Date Joyce Tapia MD 230 [place] [address] PCP - General Family Medicine 06/19/12 documented as of this encounter
--- OUTSIDE RECORDS SUMMARY | 2024-11-12 09:55 | XMS_ITS | Encounter Summary ---
Author Organization [employer] Address 75 [facility] 7t [place] [address] Care Team Providers Care Well Servicing Rig Operator Name Role Phone Joyce Tapia MD Primary Care Provider [phone] Reason for Visit * Reason Onset Date Comments Med Refill 06/25/2024 Encounter Details Date Type Department Care Team (Late st Contact Info) Description 06/25/2024 Refill [facility] MEDICINE 230 [place] [address] Joyce Tapia MD [address] [place], [place] [phone] Status post surgical removal of nail matrix [...] [facility] MED & PEDS 505 [place] [address] Katherine Casper, MAKEDA 505 [place] [address] 11/28/2024 9:30 AM EDT Medication Management [facility] MED & PEDS [address] [place] [address] Cristal Muhammad, PharmD 230 [place] [address] 02/05/2025 9:00 AM EDT Office Visit [facility] MED & PEDS [address] [place] [address] Ayden Orellana MD 505 [place] [address] documented as of this encounter Visit Diagnoses Diagnosis Status post surgical removal of nail matrix of toe of left foot documented in this encounter Care Teams Well Servicing Rig Operator Relationship Specialty Start Date End Date Joyce Tapia MD 230 [place] [address] PCP - General Family Medicine 06/19/12 documented as of this encounter
--- OUTSIDE RECORDS SUMMARY | 2024-11-12 09:55 | XMS_ITS | Encounter Summary ---
Author Organization [employer] Address 75 [facility] 7t [place] [address] Care Team Providers Care Parts Counterperson Name Role Phone Joyce Tapia MD Primary Care Provider [phone] Reason for Visit * Reason Comments Med Refill Encounter Details Date Type Department Care Team (Late st Contact Info) Description 06/06/2023 Refill [facility] MED & PEDS 505 [place], [place] [phone] Ev Lewis, ANP 230 [place] [address] Status post surgical removal of nail matrix [...] Description 11/14/2024 9:30 AM EDT Clinical Support [facility] MED & PEDS 505 [place] [address] Katherine Casper, MAKEDA 505 [place] [address] 11/28/2024 9:30 AM EDT Medication Management [facility] MED & PEDS [address] [place] [address] Cristal Muhammad PharmD 230 [place] [address] 02/05/2025 9:00 AM EDT Office Visit [facility] MED & PEDS 505 [place] [address] Ayden Orellana MD 505 [place] [address] documented as of this encounter Visit Diagnoses Diagnosis Status post surgical removal of nail matrix of toe of left foot documented in this encounter Care Teams Parts Counterperson Relationship Specialty Start Date End Date Joyce Tapia MD 230 [place] [address] PCP - General Family Medicine 06/19/12 documented as of this encounter
== END 2024-11-12 10:17 | disposition home or self-care (01) ==
LOC: HO.HOS 09:37
PROVIDERS: PCP Student in an Organized Health Care Education/Training Program
DX: M65.322 Trigger finger, left index finger (principal); M65.321 Trigger finger, right index finger; M65.331 Trigger finger, right middle finger
CPT/HCPCS: 20550; 99213

== ENCOUNTER → 2024-11-12 09:37 | Outpatient (BNVA) | payer OTHER, SELFPAY | PROVIDERS: PCP Student in an Organized Health Care Education/Training Program | DX: M65.321 Trigger finger, right index finger (principal); M65.331 Trigger finger, right middle finger; Z87.39 Personal history of other diseases of the musculoskeletal system and connective tissue; Z98.890 Other specified postprocedural states | CPT/HCPCS: 20550; 99212; J1100; J2003 ==

== ENCOUNTER 2024-11-20 15:57 | Emergency (ER) | payer OTHER, SELFPAY ==
[2024-11-20 16:16] VITALS: BP 106/57; PULSE 81; RESP 18; TEMP 36.7; O2SAT 97; BMI 28.1
--- NOTE | 2024-11-20 16:22 | ED.SKABFB ---
HPI - Skin/Abscess/Foreign Bdy General Chief complaint: Skin/Abscess/Foreign Body Stated complaint: Abscess Time Seen by Provider: 11/20/24 19:19 Source: patient Mode of arrival: ambulatory Limitations: no limitations History of Present Illness HPI narrative: This is a 64-year-old woman with a past medical history of high cholesterol, type 2 diabetes mellitus, anxiety/depression, hidradenitis suppurativa, history of abscess who presents for evaluation of abscess. She states noting abscess developing over the last 3 days days. She states that she has had several surgeries for removal of abscess pockets. She states no fevers or chills. She states no urinary symptoms. She states noting some purulent drainage yesterday and states that she did soak it in the hot tub hoping it would heal. She states no trauma. Related Data Home Medications ?Medication ?Instructions ?Recorded ?Confirmed hydrochlorothiazide 12.5 mg capsule 12.5 mg PO DAILY 05/09/20 07/25/24 hydroxyzine HCl 25 mg tablet 50 mg PO BEDTIME 06/04/20 07/25/24 sertraline 100 mg tablet 1 tab PO BEDTIME 10/20/21 07/25/24 tizanidine 4 mg tablet 1 tab PO BEDTIME PRN Pain 10/20/21 07/25/24 cyanocobalamin (vitamin B-12) 1,000 mcg PO QAM 06/03/22 07/25/24 1,000 mcg tablet metformin 500 mg tablet,extended 500 mg PO BID 06/03/22 07/25/24 release 24 hr albuterol sulfate 90 mcg/actuation 2 puff inhalation Q4-6H PRN 08/25/23 07/25/24 aerosol inhaler Shortness Of Breath Or Wheezing oxycodone 5 mg tablet 5 mg PO Q6H PRN severe pain 09/27/23 07/25/24 pramipexole 0.5 mg tablet 0.5 mg PO TID 09/27/23 07/25/24 zolpidem 5 mg tablet 5 mg PO BEDTIME PRN insomnia 09/27/23 07/25/24 ferrous sulfate 325 mg (65 mg 325 mg PO QAM 10/27/23 07/25/24 iron) tablet ondansetron HCl 4 mg tablet 4 mg PO Q12H PRN nausea/vomiting 02/03/24 07/25/24 varenicline tartrate 1 mg tablet 1 mg PO BID 04/24/24 07/25/24 Previous Rx's ?Medication ?Instructions ?Recorded cholecalciferol (vitamin D3) 50 50 mcg PO DAILY #30 caps 12/15/20 mcg (2,000 unit) capsule fluticasone propionate 50 2 spray intranasal DAILY #16 grams 06/21/21 mcg/actuation nasal spray,suspension (Flonase Allergy Relief) blood-glucose meter (FreeStyle #1 ea 08/21/21 Lite Meter kit) blood sugar diagnostic (FreeStyle #150 strips 03/30/22 Lite Strips) thiamine HCl (vitamin B1) 100 mg 100 mg PO DAILY #90 tabs 06/07/22 tablet lidocaine 5 % topical patch 1 patch topical DAILY #15 ea 11/10/22 (Lidoderm) cyclobenzaprine 10 mg tablet 10 mg PO Q8H #20 tabs 01/07/23 meclizine 25 mg tablet 25 mg PO TID PRN dizziness #20 tabs 02/11/23 albuterol sulfate 1.25 mg/3 mL 1.25 mg (3 mL) inhalation QID PRN 06/11/23 solution for nebulization shortness of breath or wheezing #90 mL diclofenac sodium 1 % topical gel 2 g topical BID PRN pain (scale 07/18/23 (Aleve (diclofenac)) score 4-6) #100 grams prednisone 20 mg tablet 40 mg (2 x 20 mg) PO DAILY 5 days 06/03/24 #10 tabs barium sulfate 2 % (w/v) oral 450 ml PO ONCE #900 mL 07/31/24 suspension (Readi-Cat 2) pantoprazole 40 mg tablet,delayed 40 mg PO DAILY #60 tabs 08/22/24 release oxycodone-acetaminophen 5 mg-325 1 tab PO Q6H PRN Pain #5 tabs 10/01/24 mg tablet doxycycline hyclate 100 mg capsule 100 mg PO BID 5 days #10 caps 11/20/24 Allergies Allergy/AdvReac Type Severity Reaction Status Date / Time prochlorperazine Allergy Severe Seizure Verified 11/20/24 16:17 [From Compazine] Penicillins Allergy Intermediate HIVES Verified 11/20/24 16:17 sulfamethoxazole Allergy Intermediate BLISTERS- Verified 11/20/24 16:17 [From BACTRIM] DELGADO - NERVE ENDINGS IN HAND/ERYTHEMA MULTIFORM trimethoprim [From BACTRIM] Allergy Intermediate BLISTERS- Verified 11/20/24 16:17 DELGADO - NERVE ENDINGS IN HAND/ERYTHEMA MULTIFORM latex [Latex] Allergy Mild RASH Verified 11/20/24 16:17 transparent dressing AdvReac Severe Redness of Verified 11/20/24 16:17 [Tegaderm] Skin theophylline AdvReac Intermediate TACHYCARDIA Verified 11/20/24 16:17 Review of Systems Review of Systems: ROS as per HPI [facility] Past Medical History Medical History Abscess Abdominal pain Infection of skin due to methicillin resistant Staphylococcus aureus (MRSA) Numbness of right hand COVID-19 Sebaceous cyst Cubital tunnel syndrome on left Contusion of right ankle Numbness and tingling in left hand Left hand pain Stiffness of left hand joint Emesis Overweight (BMI 25.0-29.9) Borderline diabetes Dyslipidemia Non-toxic multinodular goiter Diabetes type 2, controlled History of restless legs syndrome Anxiety Depression High cholesterol Asthma DVT (deep venous thrombosis) GERD (gastroesophageal reflux disease) Anastomotic ulcer Surgical History Hx of colonoscopy H/O removal of cyst (02/03/23) History of removal of cyst (07/28/22) Hx of cholecystectomy History of surgery History of surgery on left wrist Hx of elbow surgery History of excision of epidermal inclusion cyst (03/23/22) Hx of excision of epidermal inclusion cyst (12/25/21) History of excision of mass (10/26/21) S/P trigger finger release History of tooth extraction Hx of hand surgery Hx of esophagogastroduodenoscopy S/P gastric bypass History of hysterectomy Family History Family History Mother Diabetes mellitus CHF (congestive heart failure) Kidney failure Cervical cancer Brother No problems noted. Brother No problems noted. 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 Physical Exam Vital Signs: Vital Signs: Last Vital Signs Temp 98.0 F 11/20/24 16:16 Pulse 81 11/20/24 16:16 Resp 18 11/20/24 16:16 BP 106/57 L 11/20/24 16:16 Pulse Ox 97 11/20/24 16:16 O2 Del Method Room Air 11/20/24 16:16 BMI result Body Mass Index 28.1 Gen: NAD, AOx3 HEENT: NCAT, EOMI, normal conjunctiva CV: RRR Pulm: CTAB, no increased work of breathing GI: Soft, NTND, no rebound, guarding or rigidity Neuro: Grossly non focal Skin: Warm, dry, left lower vulvar fluctuance with associated localized a faint erythema (bedside RN present at time of exam and incision and drainage) Course Course Course Narrative: 11/20/24 1622 SIMONE Grimm This is a Rapid Medical Examination (RME) performed by Gama Maki PA-C in triage. Full HPI, ROS, assessment and treatment plan per primary provider in the Main ED. Hx: 64-year-old female hx HS here for eval of abscess to groin x3 days. Minimal drainage. Has seen Dr. Hernandez for same in the past. no fever/chills. PE/vitals: Area not visualized in triage due to privacy concerns Plan: further eval in back Medical Decision Making Medical Decision Making MDM Narrative: Differential diagnosis includes, but is not limited to abscess, cellulitis. Patient is afebrile and hemodynamically stable on room air. Exam is consistent with vulva abscess, which is incised and drained. The patient provides verbal consent for incision and drainage. Bacitracin applied along with a bandage. Patient provided doxycycline here in the emergency room. On re-examination, patient is well-appearing and in no acute distress. ?There is no indication for further emergent evaluation in this otherwise well-appearing patient as above. ?Patient is provided written and verbal instructions, educational materials, recommendations for outpatient follow-up, prescription for doxycycline, strict return precautions and teach back is performed. ?Patient states understanding and agreement with plan of care. ?Patient is discharged home in stable and improved condition. Admission/Observation Consideration of admission/observation: Escalation of care including admission/observation considered Procedures Abscess I/D Site: other (Vulva) Side (if applicable): left Local Anesthetic: lidocaine 1% Amount of anesthesia used (mL): 3 Technique: incised with blade Sent for culture/gram staining?: No Irrigation: Yes Packing used?: none Discharge Plan Discharge Clinical Impression: Abscess, vulva Patient Disposition: Home, Self-Care Instructions: Abscess (ED), Incision and Drainage (ED) Additional Instructions: You were seen and evaluated in the emergency room. The abscess on your left lower vulva was incised and drained. Please keep your incision clean by washing daily with soap and water. There is no need to wash with anything else. Please apply triple antibiotic ointment such as Neosporin 2 to 3 times a day until healed. Please avoid soaking in any bodies of water including pools and hot tubs/Jacuzzis. You were started on antibiotics. A prescription for antibiotics has been sent to your pharmacy. Please take your next dose tomorrow morning November 21, 2024. Please take as directed until completed. Please follow up with your surgeon, Dr. Arroyo, in the next 1 week. Return to the emergency room with any new concerns or symptoms. Prescriptions: New doxycycline hyclate 100 mg capsule 100 mg PO BID 5 Days Qty: 10 0RF No Action cholecalciferol (vitamin D3) 50 mcg (2,000 unit) capsule 50 mcg PO DAILY Qty: 30 11RF (DME) FreeStyle Lite Strips Strip See Rx Instructions .ROUTE .COMPLEX Qty: 150 6RF Dose Instruction: USE TO TEST BLOOD SUGAR TWICE DAILY Rx Instructions: USE TO TEST BLOOD SUGAR TWICE DAILY thiamine HCl (vitamin B1) 100 mg tablet 100 mg PO DAILY Qty: 90 3RF Readi-Cat 2 2 % (w/v) suspension 450 ml PO ONCE Qty: 900 0RF Rx Instructions: Drink both bottles [address] scan pantoprazole 40 mg tablet,delayed release (DR/EC) 40 mg PO DAILY Qty: 60 6RF hydroxyzine HCl 25 mg tablet 50 mg PO BEDTIME sertraline 100 mg tablet 1 tab PO BEDTIME tizanidine 4 mg tablet 1 tab PO BEDTIME PRN (Reason: Pain) fluticasone propionate [Flonase Allergy Relief] 50 mcg/actuation spray,suspension 2 spray intranasal DAILY Qty: 16 0RF Rx Instructions: administer into each nostril metformin 500 mg tablet extended release 24 hr 500 mg PO BID albuterol sulfate 1.25 mg/3 mL solution for nebulization 1.25 mg inhalation QID PRN (Reason: shortness of breath or wheezing) Qty: 90 0RF albuterol sulfate 90 mcg/actuation Hfa Aerosol Inhaler 2 puff INHALATION Q4-6H PRN (Reason: Shortness Of Breath Or Wheezing) oxycodone-acetaminophen 5-325 mg Tablet 1 tab PO Q6H PRN (Reason: Pain) Qty: 5 0RF Rx Instructions: Partial Fill upon patient request. lidocaine [Lidoderm] 5 % adhesive patch,medicated 1 patch topical DAILY Qty: 15 0RF Rx Instructions: leave on most painful area for up to 12 hrs cyclobenzaprine 10 mg tablet 10 mg PO Q8H Qty: 20 0RF meclizine 25 mg tablet 25 mg PO TID PRN (Reason: dizziness) Qty: 20 0RF diclofenac sodium [Aleve (diclofenac)] 1 % gel 2 g topical BID PRN (Reason: pain (scale score 4-6)) Qty: 100 0RF Rx Instructions: apply to single elbow, wrist or hand; for hand includes palm/fingers/back of hand prednisone 20 mg tablet 40 mg PO DAILY 5 Days Qty: 10 0RF hydrochlorothiazide 12.5 mg capsule 12.5 mg PO DAILY (DME) blood-glucose meter [FreeStyle Lite Meter] Kit See Rx Instructions .Route Qty: 1 0RF Rx Instructions: As directed test blood sugar two times a day cyanocobalamin (vitamin B-12) 1,000 mcg tablet 1,000 mcg PO QAM oxycodone 5 mg tablet 5 mg PO Q6H PRN (Reason: severe pain) zolpidem 5 mg tablet 5 mg PO BEDTIME PRN (Reason: insomnia) pramipexole 0.5 mg tablet 0.5 mg PO TID varenicline tartrate 1 mg tablet 1 mg PO BID ferrous sulfate 325 mg (65 mg iron) tablet 325 mg PO QAM ondansetron HCl 4 mg tablet 4 mg PO Q12H PRN (Reason: nausea/vomiting) Print Language: Iraqi
--- OUTSIDE RECORDS SUMMARY | 2024-11-20 19:27 | XMS_ITS | Encounter Summary ---
Author Organization [employer] Address [address] [facility] [address] [place] [address] Care Team Providers Care Washer Cutter Name Role Phone Joyce Tapia MD Primary Care Provider [phone] Reason for Visit * Reason Comments Med Refill Encounter Details Date Type Department Care Team (Late st Contact Info) Description 11/04/2023 Refill [facility] & PEDS [address] [place] [address] Joyce Tapia MD [address] [place] [address] Status post surgical removal of nail matrix [...] Care Team (Late st Contact Info) Description 11/28/2024 9:30 AM EDT Medication Management [facility] & [facility] [address] [place] [address] Cristal Muhammad, PharmD [address] [place] [address] 12/05/2024 8:45 AM EDT Office Visit [facility] & [facility]S [address] [place] [address] Joyce Tapia MD [address] [place] [address] 12/25/2024 9:45 AM EDT Office Visit [facility] MED[facility] [address] [place] [address] 02/05/2025 9:00 AM EDT Office Visit [facility] & [facility]EDS [address] [place] [address] Ayden Orellana MD [address] [place] [address] documented as of this encounter Visit Diagnoses Diagnosis Status post surgical removal of nail matrix of toe of left foot documented in this encounter Care Teams Washer Cutter Relationship Specialty Start Date End Date Joyce Tapia MD [address] [place] [id number] PCP - General Family Medicine 06/19/12 documented as of this encounter
--- OUTSIDE RECORDS SUMMARY | 2024-11-20 19:27 | XMS_ITS | Encounter Summary ---
Author Organization [employer] Address [address] [facility] 7t [place] [address] Care Team Providers Care Retread Mold Operator Name Role Phone Joyce Tapia MD Primary Care Provider [phone] Encounter Details Date Type Department Care Team ([facility] st Contact Info) Description 2024 Orders Only [facility] MED & PEDS [address] [place], [place] [phone] Joyce Tapia MD [address] [place], [place] [phone] Social History Tobacco Use Types Packs/Day Years [...] Description 11/28/2024 9:30 AM EDT Medication Management [facility] PEDS [address] [place] [address] Cristal Muhammad, PharmD [address] [place] [address] 12/05/2024 8:45 AM EDT Office Visit [facility] MED [facility] PEDS [address] [place] [address] Joyce Tapia MD [address] [place] [address] 12/25/2024 9:45 AM EDT Office Visit [facility] MED[facility]INE [address] [place] [address] 02/05/2025 9:00 AM EDT Office Visit [facility] MED & PEDS [address] [place] [address] Ayden Orellana MD [address] [place] [address] documented as of this encounter Visit Diagnoses Not on filedocumented in this encounter Additional Health Concerns Assessment Noted Time PHQ-9 Depression Total Score: 7 09/15/19 25 9:02 AM EDT documented as of this encounter Care Teams Retread Mold Operator Relationship Specialty Start Date End Date Joyce Tapia MD [address] [place] [address] PCP - General Family Medicine 06/19/12 documented as of this encounter
--- OUTSIDE RECORDS SUMMARY | 2024-11-20 19:27 | XMS_ITS | Encounter Summary ---
Author Organization [employer] Address [address] [facility] 7[address] [place] [address] Care Team Providers Care Home Insurance Agent Name Role Phone Joyce Tapia MD Primary Care Provider [phone] Reason for Visit * Reason Onset Date Comments Med Refill 09/11/2024 Encounter Details Date Type Department Care Team ([facility] st Contact Info) Description 09/11/2024 Telephone [facility] MEDICINE [address] [place] [address] Joyce Tapia MD [address] [place], [place] [phone] Med Refill Social History Tobacco Use Types [...] AM EDT documented as of this encounter Functional Status * Over the past 2 weeks, how often have you been bothered by any of the following problems? Question Answer Date of Assessment Author Patient Health Questionnaire -2 Score 2 09/14/2024 9:02 AM EDT Dorothea Lloyd MA * Little interest or pleasure in doing things Answer Date of Assessment Author Several days 09/14/2024 9:02 AM EDT Nakul Lloyd MA * Feeling down, depressed, or hopeless Answer Date of Assessment Author Several days 09/14/2024 9:02 AM EDT Nakul Lloyd MA * Trouble falling or staying asleep, or sleeping too much Answer Date of Assessment Author More than half the days 09/14/2024 9:02 AM EDT Dorothea Corondao MA * Feeling tired or having little energy Answer Date of Assessment Author More than half the days 09/14/2024 9:02 AM EDT Dorothea Coronado MA * Poor appetite or overeating Answer Date of Assessment Author Several days 09/14/2024 9:02 AM EDT Nakul Lloyd MA * Feeling bad about yourself - or that you are a failure or have let yourself or your family down Answer Date of Assessment Author Not at all 09/14/2024 9:02 AM EDT Janusz Lloyd MA * Trouble concentrating on things, such as reading the newspaper or watching television Answer Date of Assessment Author Not at all 09/14/2024 9:02 AM Nakul Higuera MA * Moving or speaking so slowly that other people could have noticed? Or the opposite - being so fidgety or restless that you have been moving around a lot more than usual. Answer Date of Assessment Author Not at all 09/14/2024 9:02 AM Nakul Higuera MA * Thoughts that you would be better off or hurting yourself in some way Answer Date of Assessment Author Not at all 09/14/2024 9:02 AM Nakul Higuera MA * Patient Health Questionnaire-9 Score Answer Date of Assessment Author 7 09/14/2024 9:02 AM Nakul Higuera MA * How difficult have these problems made it for you to do your work, take care of things at home, or get along with other people? Answer Date of Assessment Author Somewhat difficult 09/14/2024 9:02 AM EDT Dorothea Lloyd MA documented as of this encounter Miscellaneous Notes * Telephone Encounter - Sha Harris - 09/11/2024 9:37 AM EDT TC from pt requesting medication refill. Medications needing refill : oxyCODONE (Roxicodone) 5 MG immediate release tablet To be sent to: [facility]/pharmacy #[id number] - [place] - [address] [facility] documented in this encounter Plan of Treatment Upcoming Encounters Date Type Department Care Team (Late st Contact Info) Description 11/28/2024 9:30 AM EDT Medication Management [facility] MED & PEDS [address] [facility] [place] [address] Cristal Muhammad PharmD 230 [place] [address] 12/05/2024 8:45 AM EDT Office Visit [facility] MED & PEDS [address] [facility] [place] [address] Joyce Tapia MD [address] [place] [address] 12/25/2024 9:45 AM EDT Office Visit [facility] MEDICINE [address] [place] [address] 02/05/2025 9:00 AM EDT Office Visit [facility] PEDS [address] [place] [address] Ayden Orellana MD [address] [place] [address] documented as of this encounter Visit Diagnoses Not on filedocumented in this encounter Care Teams Home Insurance Agent Relationship Specialty Start Date End Date Joyce Tapia MD [address] [place] [phone] PCP - General Family Medicine 06/19/12 documented as of this encounter
--- OUTSIDE RECORDS SUMMARY | 2024-11-20 19:27 | XMS_ITS | Encounter Summary ---
Author Organization [employer] Address [address] [facility] 7t [place] [address] Care Team Providers Care Senior Service Technician Name Role Phone Joyce Tapia MD Primary Care Provider [phone] Reason for Visit * Reason Onset Date Comments Med Refill 04/25/2024 Encounter Details Date Type Department Care Team ([facility] st Contact Info) Description 04/25/2024 Telephone [facility] [address] [place] [address] Joyce Tapia MD [address] [place], [place] [phone] Med Refill Social History Tobacco Use Types [...] MG To be sent to: [facility] documented in this encounter Plan of Treatment Upcoming Encounters Date Type Department Care Team (Late st Contact Info) Description 11/28/2024 9:30 AM EDT Medication Management [facility] MED & PEDS [address] [place] [address] Cristal Muhammad, PharmD [address] [place] [address] 12/05/2024 8:45 AM EDT Office Visit [facility] MED & PEDS [address] [place] [address] Joyce Tapia MD [address] [place] [address] 12/25/2024 9:45 AM EDT Office Visit [facility] [address] [place] [address] 02/05/2025 9:00 AM EDT Office Visit [facility] MED & PEDS [address] [place] [address] Ayden Orellana MD [address] [place] [address] documented as of this encounter Visit Diagnoses Not on filedocumented in this encounter Care Teams Senior Service Technician Relationship Specialty Start Date End Date Joyce Tapia MD [address] [place] [address] PCP - General Family Medicine 06/19/12 documented as of this encounter
--- OUTSIDE RECORDS SUMMARY | 2024-11-20 19:27 | XMS_ITS | Encounter Summary ---
Author Organization [employer] Address [address] [facility] [address] [place] [address] Care Team Providers Care Suction Plate Carrier Cleaner Name Role Phone Joyce Tapia MD Primary Care Provider [phone] Reason for Visit * Reason Onset Date Comments Med Refill 07/13/2024 Encounter Details Date Type Department Care Team ([facility] st Contact Info) Description 07/13/2024 Refill [facility] MED [facility] PEDS [address] [place], [place] [phone] Joyce Tapia MD [address] [place] [address] Social History Tobacco Use Types Packs/Day Years [...] Description 11/28/2024 9:30 AM EDT Medication Management [facility] PEDS [address] [place] [address] Cristal Muhammad PharmD [address] [place] [address] 12/05/2024 8:45 AM EDT Office Visit [facility] MED & PEDS [address] [place] [address] Joyce Tapia MD [address] [place] [address] 12/25/2024 9:45 AM EDT Office Visit [facility] MEDICINE [address] [place] [address] 02/05/2025 9:00 AM EDT Office Visit [facility] MED & PEDS [address] [place] [address] Ayden Orellana MD [address] [place] [address] documented as of this encounter Visit Diagnoses Not on filedocumented in this encounter Care Teams Suction Plate Carrier Cleaner Relationship Specialty Start Date End Date Joyce Tapia MD [address] [place] [address] PCP - General Family Medicine 06/19/12 documented as of this encounter
--- OUTSIDE RECORDS SUMMARY | 2024-11-20 19:27 | XMS_ITS | Encounter Summary ---
Author Organization [employer] Address [address] [facility] 7t [place] [address] Care Team Providers Care Database Dba Name Role Phone Joyce Tapia MD Primary Care Provider [phone] Reason for Visit * Reason Comments Med Refill Encounter Details Date Type Department Care Team ([facility] Contact Info) Description 2024 Refill [facility] CHC MED & PEDS [address] [place], [place] [phone] Joyce Tapia MD 505 [place] [address] Social History Tobacco Use Types Packs/Day Years [...] Telephone Encounter - Katherine Casper RN - 2024 11:15 AM EDT TC to pt regarding message below. F/u with PCP scheduled for 12/05/24 @ 8:45am. documented in this encounter Plan of Treatment Upcoming Encounters Date Type Department Care Team ([facility] st Contact Info) Description 11/28/2024 9:30 AM EDT Medication Management [facility] MED & PEDS 505 [place] [address] Cristal Muhammad, PharmD 230 [place] [address] 12/05/2024 8:45 AM EDT Office Visit [facility] MED & PEDS 505 [place] [address] Joyce Tapia MD 505 [place] [address] 12/25/2024 9:45 AM EDT Office Visit [facility] MEDICINE 230 [place] [address] 02/05/2025 9:00 AM EDT Office Visit [facility] CHC MED & PEDS 505 [place] [address] Ayden Orellana MD 505 [place] [address] documented as of this encounter Visit Diagnoses Not on filedocumented in this encounter Additional Health Concerns Assessment Noted Time PHQ-9 Depression Total Score: 7 09/15/19 25 9:02 AM EDT documented as of this encounter Care Teams Database Dba Relationship Specialty Start Date End Date Joyce Tapia MD [address] [place] [address] PCP - General Family Medicine 06/19/12 documented as of this encounter
--- OUTSIDE RECORDS SUMMARY | 2024-11-20 19:27 | XMS_ITS | Encounter Summary ---
Author Organization [employer] Address [address] [facility] 7t [place] [address] Care Team Providers Care Forest Supervisor Name Role Phone Joyce Tapia MD Primary Care Provider [phone] Reason for Visit * Reason Onset Date Comments Med Refill 04/18/2024 Encounter Details Date Type Department Care Team ([facility] st Contact Info) Description 04/18/2024 Refill [facility] MEDICINE 230 [place], [place] [phone] Amber Palacio MD 230 [place], [place] [phone] Smoker Social History Tobacco Use Types Packs/Day [...] Description 11/28/2024 9:30 AM EDT Medication Management [facility] MED & PEDS 505 [place] [address] Cristal Muhammad PharmD 230 [place] [address] 12/05/2024 8:45 AM EDT Office Visit [facility] MED & PEDS 505 [place] [address] Joyce Tapia MD 505 [place] [address] 12/25/2024 9:45 AM EDT Office Visit [facility] MEDICINE 230 [place] [address] 02/05/2025 9:00 AM EDT Office Visit [facility] MED & PEDS 505 [place] [address] Ayden Orellana MD 505 [place] [address] documented as of this encounter Visit Diagnoses Diagnosis Smoker Tobacco use disorder documented in this encounter Care Teams Forest Supervisor Relationship Specialty Start Date End Date Joyce Tapia MD 230 [place] [address] PCP - General Family Medicine 06/19/12 documented as of this encounter
--- OUTSIDE RECORDS SUMMARY | 2024-11-20 19:27 | XMS_ITS | Encounter Summary ---
Author Organization [employer] Address [address] [facility] 7t [place] [address] Care Team Providers Care Outside Production Inspector Name Role Phone Joyce Tapia MD Primary Care Provider [phone] Reason for Visit * Reason Comments Med Refill Encounter Details Date Type Department Care Team (Late st Contact Info) Description 10/24/2023 Refill [facility] MEDICINE 230 [place], [place] [phone] Joyce Tapia MD 505 [place] [address] Status post surgical removal of nail matrix [...] Description 11/28/2024 9:30 AM EDT Medication Management [facility] CHC MED & PEDS 505 [place] [address] Cristal Muhammad, PharmD 230 [place] [address] 12/05/2024 8:45 AM EDT Office Visit [facility] CHC MED & PEDS 505 [place] [address] Joyce Tapia MD 505 [place] [address] 12/25/2024 9:45 AM EDT Office Visit [address] [address] 02/05/2025 9:00 AM EDT Office Visit [facility] MED & PEDS 505 [place] [address] Ayden Orellana MD 505 [place] [address] documented as of this encounter Visit Diagnoses Diagnosis Status post surgical removal of nail matrix of toe of left foot documented in this encounter Care Teams Outside Production Inspector Relationship Specialty Start Date End Date Joyce Tapia MD [address] [place] [address] PCP - General Family Medicine 06/19/12 documented as of this encounter
--- OUTSIDE RECORDS SUMMARY | 2024-11-20 19:27 | XMS_ITS | Encounter Summary ---
Author Organization [employer] Address 75 [facility] 7t [place] [address] Care Team Providers Care Provisioning Analyst Name Role Phone Joyce Tapia MD Primary Care Provider [phone] Reason for Visit * Reason Onset Date Comments Med Refill 05/08/2024 Encounter Details Date Type Department Care Team (Late st Contact Info) Description 05/08/2024 Refill [facility] MEDICINE 230 [place] [address] Joyce Tapia MD [address] [place] [address] Muscle spasm Social History Tobacco Use Types [...] Description 11/28/2024 9:30 AM EDT Medication Management [facility] MED & PEDS 505 [place] [address] Cristal Muhammad PharmD 230 [place] [address] 12/05/2024 8:45 AM EDT Office Visit [facility] MED & PEDS 505 [place] [address] Joyce Tapia MD 505 [place] [address] 12/25/2024 9:45 AM EDT Office Visit [facility] MEDICINE 230 [place] [address] 02/05/2025 9:00 AM EDT Office Visit [facility] MED & PEDS 505 [place] [address] Ayden Orellana MD 505 [place] [address] documented as of this encounter Visit Diagnoses Diagnosis Muscle spasm Spasm of muscle documented in this encounter Care Teams Provisioning Analyst Relationship Specialty Start Date End Date Joyce Tapia MD 230 [place] [address] PCP - General Family Medicine 06/19/12 documented as of this encounter
--- OUTSIDE RECORDS SUMMARY | 2024-11-20 19:27 | XMS_ITS | Encounter Summary ---
Author Organization [employer] Address 75 [facility] 7t [place] [address] Care Team Providers Care Dancing Instructor Name Role Phone Joyce Tapia MD Primary Care Provider [phone] Reason for Visit * Reason Onset Date Comments Med Refill 07/13/2024 Encounter Details Date Type Department Care Team (Late st Contact Info) Description 07/13/2024 Refill [facility] MEDICINE 230 [place], [place] [phone] Amber Palacio MD 230 [place], [place] [phone] Smoker Social History Tobacco Use Types Packs/Day [...] [facility] 505 [place] [address] Cristal Muhammad PharmD 230 [place] [address] 12/05/2024 8:45 AM EDT Office Visit [facility] MED & PEDS 505 [place] [address] Joyce Tapia MD 505 [place] [address] 12/25/2024 9:45 AM EDT Office Visit [facility] MEDICINE 230 [place] [address] 02/05/2025 9:00 AM EDT Office Visit [facility] MED & PEDS 505 [place] [address] Ayden Orellana MD 505 [place] [address] documented as of this encounter Visit Diagnoses Diagnosis Smoker Tobacco use disorder documented in this encounter Care Teams Dancing Instructor Relationship Specialty Start Date End Date Joyce Tapia MD 230 [place] [address] PCP - General Family Medicine 06/19/12 documented as of this encounter
--- OUTSIDE RECORDS SUMMARY | 2024-11-20 19:27 | XMS_ITS | Encounter Summary ---
Author Organization [employer] Address 75 [facility] 7t [place] [address] Care Team Providers Care Chip Crusher Operator Name Role Phone Joyce Tapia MD Primary Care Provider [phone] Reason for Visit * Reason Comments Med Refill Encounter Details Date Type Department Care Team ([facility] Contact Info) Description 11/17/2024 Refill [facility] CHC MED & PEDS 505 [place], [place] [phone] Joyce Tapia MD 505 [place] [address] Social History Tobacco Use Types Packs/Day Years [...] [facility] 505 [place] [address] Cristal Muhammad, PharmD [address] [place] [address] 12/05/2024 8:45 AM EDT Office Visit [facility] MED & PEDS [address] [place] [address] Joyce Tapia MD 505 [place] [address] 12/25/2024 9:45 AM EDT Office Visit [facility] MEDICINE 230 [place] [address] 02/05/2025 9:00 AM EDT Office Visit [facility] MED & PEDS 505 [place] [address] Ayden Orellana MD 505 [place] [address] documented as of this encounter Visit Diagnoses Not on filedocumented in this encounter Additional Health Concerns Assessment Noted Time PHQ-9 Depression Total Score: 7 09/15/19 25 9:02 AM EDT documented as of this encounter Care Teams Chip Crusher Operator Relationship Specialty Start Date End Date Joyce Tapia MD [address] [place] [address] PCP - General Family Medicine 06/19/12 documented as of this encounter
--- OUTSIDE RECORDS SUMMARY | 2024-11-20 19:27 | XMS_ITS | Encounter Summary ---
Author Organization [employer] Address 75 [facility] 7t [place] [address] Care Team Providers Care Military Source Operations Specialist Name Role Phone oJyce Tapia MD Primary Care Provider [phone] Reason for Visit * Reason Onset Date Comments Med Refill 07/12/2024 Encounter Details Date Type Department Care Team (Late st Contact Info) Description 07/12/2024 Refill [facility] CHC MED & PEDS 505 [place], [place] [phone] Joyce Tapia MD 505 [place] [address] Status post surgical removal of nail matrix [...] Description 11/28/2024 9:30 AM EDT Medication Management [facility] MED & PEDS 505 [place] [address] Cristal Muhammad PharmD 230 [place] [address] 12/05/2024 8:45 AM EDT Office Visit [facility] MED & PEDS 505 [place] [address] Joyce Tapia MD 505 [place] [address] 12/25/2024 9:45 AM EDT Office Visit [facility] MEDICINE 230 [place] [address] 02/05/2025 9:00 AM EDT Office Visit [facility] MED & PEDS 505 [place] [address] Ayden Orellana MD 505 [place] [address] documented as of this encounter Visit Diagnoses Diagnosis Status post surgical removal of nail matrix of toe of left foot documented in this encounter Care Teams Military Source Operations Specialist Relationship Specialty Start Date End Date Joyce Tapia MD 230 [place] [address] PCP - General Family Medicine 06/19/12 documented as of this encounter
--- OUTSIDE RECORDS SUMMARY | 2024-11-20 19:27 | XMS_ITS | Encounter Summary ---
Author Organization [email or web address] Address 75 [facility] 7t [place] [address] Care Team Providers Care Thermal Engineer Name Role Phone Joyce Tapia MD Primary Care Provider [phone] Reason for Visit * Reason Onset Date Comments Med Refill 10/24/2023 Encounter Details Date Type Department Care Team ([facility] st Contact Info) Description 10/24/2023 Telephone [facility] MEDICINE 230 [place], [place] [phone] Joyce Tapia MD [address] [place] [address] Med Refill Social History Tobacco Use Types [...] immediate release tablet To be sent to: [facility] [place] - [address] [facility] documented in this encounter Plan of Treatment Upcoming Encounters Date Type Department Care Team (Late st Contact Info) Description 11/28/2024 9:30 AM EDT Medication Management [facility] MED & PEDS 505 [place] [address] Cristal Muhammad PharmD 230 [place] [address] 12/05/2024 8:45 AM EDT Office Visit [facility] MED & PEDS 505 [place] [address] Joyce Tapia MD 505 [place] [address] 12/25/2024 9:45 AM EDT Office Visit [facility] MEDICINE [address] [place] [address] 02/05/2025 9:00 AM EDT Office Visit [facility] MED & PEDS 505 [place] [address] Ayden Orellana MD 505 [place] [address] documented as of this encounter Visit Diagnoses Not on filedocumented in this encounter Care Teams Thermal Engineer Relationship Specialty Start Date End Date Joyce Tapia MD [address] [place] [address] PCP - General Family Medicine 06/19/12 documented as of this encounter
--- OUTSIDE RECORDS SUMMARY | 2024-11-20 19:27 | XMS_ITS | Encounter Summary ---
Author Organization [employer] Address 75 [facility] 7t [place] [address] Care Team Providers Care Art Therapy Certified Supervisor Name Role Phone Joyce Tapia MD Primary Care Provider [phone] Reason for Visit * Reason Onset Date Comments Med Refill 03/17/2023 Encounter Details Date Type Department Care Team (Late st Contact Info) Description 03/17/2023 Telephone [facility] CHC MED & PEDS 505 [place] [address] Joyce Tapia MD 505 [place] [address] Med Refill Social History Tobacco Use Types [facility] 505 [place] [address] Cristal Muhammad PharmD 230 [place] [address] 12/05/2024 8:45 AM EDT Office Visit [facility] MED & PEDS 505 [place] [address] Joyce Tapia MD 505 [place] [address] 12/25/2024 9:45 AM EDT Office Visit [facility] MEDICINE 230 [place] [address] 02/05/2025 9:00 AM EDT Office Visit [facility] MED & PEDS 505 [place] [address] Ayden Orellana MD 505 [place] [address] documented as of this encounter Visit Diagnoses Not on filedocumented in this encounter Care Teams Art Therapy Certified Supervisor Relationship Specialty Start Date End Date oJyce Tapia MD [address] [place] [address] PCP - General Family Medicine 06/19/12 documented as of this encounter
--- OUTSIDE RECORDS SUMMARY | 2024-11-20 19:27 | XMS_ITS | Encounter Summary ---
Author Organization [employer] Address 75 [facility] 7t [place] [address] Care Team Providers Care Dinkey Engine Mechanic Name Role Phone Joyce Tapia MD Primary Care Provider [phone] Reason for Visit * Reason Onset Date Comments Med Refill 09/05/2024 Encounter Details Date Type Department Care Team (Late st Contact Info) Description 09/05/2024 Refill [facility] CHC MED & PEDS 505 [place], [place] [phone] Joyce Tapia MD 505 [place] [address] Status post surgical removal of nail matrix [...] Description 11/28/2024 9:30 AM EDT Medication Management [facility] MED & PEDS 505 [place] [address] Cristal Muhammad PharmD 230 [place] [address] 12/05/2024 8:45 AM EDT Office Visit [facility] MED & PEDS 505 [place] [address] Joyce Tapia MD 505 [place] [address] 12/25/2024 9:45 AM EDT Office Visit [facility] MEDICINE 230 [place] [address] 02/05/2025 9:00 AM EDT Office Visit [facility] MED & PEDS 505 [place] [address] Ayden Orellana MD 505 [place] [address] documented as of this encounter Visit Diagnoses Diagnosis Status post surgical removal of nail matrix of toe of left foot documented in this encounter Care Teams Dinkey Engine Mechanic Relationship Specialty Start Date End Date Joyce Tapia MD 230 [place] [address] PCP - General Family Medicine 06/19/12 documented as of this encounter
--- OUTSIDE RECORDS SUMMARY | 2024-11-20 19:27 | XMS_ITS | Encounter Summary ---
Author Organization [employer] Address 75 [facility] 7t [place] [address] Care Team Providers Care Orientation & Mobility Specialist Name Role Phone Joyce Tapia MD Primary Care Provider [phone] Reason for Visit * Reason Comments Med Refill Encounter Details Date Type Department Care Team ([facility] st Contact Info) Description 04/12/2024 Refill [facility] CHC MED & PEDS 505 [place], [place] [phone] Joyce Tapia MD 505 [place], [place] [phone] Status post surgical removal of nail matrix [...] Description 11/28/2024 9:30 AM EDT Medication Management [facility] MED & PEDS 505 [place] [address] Cristal Muhammad PharmD 230 [place] [address] 12/05/2024 8:45 AM EDT Office Visit [facility] MED & PEDS 505 [place] [address] Joyce Tapia MD 505 [place] [address] 12/25/2024 9:45 AM EDT Office Visit [facility] MEDICINE 230 [place] [address] 02/05/2025 9:00 AM EDT Office Visit [facility] MED & PEDS 505 [place] [address] Ayden Orellana MD 505 [place] [address] documented as of this encounter Visit Diagnoses Diagnosis Status post surgical removal of nail matrix of toe of left foot documented in this encounter Care Teams Orientation & Mobility Specialist Relationship Specialty Start Date End Date Joyce Tapia MD [address] [place] [address] PCP - General Family Medicine 06/19/12 documented as of this encounter
--- OUTSIDE RECORDS SUMMARY | 2024-11-20 19:27 | XMS_ITS | Encounter Summary ---
Author Organization [employer] Address 75 [facility] 7t [place] [address] Care Team Providers Care Railroad Supervisor Of Engines Name Role Phone Joyce Tapia MD Primary Care Provider [phone] Reason for Visit * Reason Onset Date Comments Referral 03/09/2023 Encounter Details Date Type Department Care Team ([facility] Contact Info) Description 03/09/2023 Telephone [facility] CHC MED & PEDS 505 [place], [place] [phone] Joyce Tapia MD 505 [place] [address] Referral Social History Tobacco Use Types Packs/Day [...] wait that long. Please contact pt at [phone] documented in this encounter Plan of Treatment Upcoming Encounters Date Type Department Care Team (Late st Contact Info) Description 11/28/2024 9:30 AM EDT Medication Management [facility] MED & PEDS 505 [place] [address] Cristal Muhammad PharmD 230 [place] [address] 12/05/2024 8:45 AM EDT Office Visit [facility] MED & PEDS 505 [place] [address] Joyce Tapia MD 505 [place] [address] 12/25/2024 9:45 AM EDT Office Visit [facility] MEDICINE 230 [place] [address] 02/05/2025 9:00 AM EDT Office Visit [facility] MED & PEDS 505 [place] [address] Ayden Orellana MD 505 [place] [address] documented as of this encounter Visit Diagnoses Not on filedocumented in this encounter Care Teams Railroad Supervisor Of Engines Relationship Specialty Start Date End Date Joyce Tapia MD [address] [place] [address] PCP - General Family Medicine 06/19/12 documented as of this encounter
--- OUTSIDE RECORDS SUMMARY | 2024-11-20 19:27 | XMS_ITS | Encounter Summary ---
Author Organization [employer] Address 75 [facility] 7t [place] [address] Care Team Providers Care Research Software Engineer Name Role Phone Joyce Tapia MD Primary Care Provider [phone] Reason for Visit * Reason Onset Date Comments Med Refill 04/19/2024 Encounter Details Date Type Department Care Team (Late st Contact Info) Description 04/19/2024 Refill [facility] MEDICINE 230 [facility] [place] [address] Joyce Tapia MD [address] [place] [address] Status post surgical removal of nail matrix [...] Description 11/28/2024 9:30 AM EDT Medication Management [facility] MED & PEDS 505 [place] [address] Cristal Muhammad PharmD 230 [place] [address] 12/05/2024 8:45 AM EDT Office Visit [facility] MED & PEDS 505 [place] [address] Joyce Tapia MD 505 [place] [address] 12/25/2024 9:45 AM EDT Office Visit [facility] MEDICINE 230 [place] [address] 02/05/2025 9:00 AM EDT Office Visit [facility] MED & PEDS 505 [place] [address] Ayden Orellana MD 505 [place] [address] documented as of this encounter Visit Diagnoses Diagnosis Status post surgical removal of nail matrix of toe of left foot documented in this encounter Care Teams Research Software Engineer Relationship Specialty Start Date End Date Joyce Tapia MD [address] [place] [address] PCP - General Family Medicine 06/19/12 documented as of this encounter
--- OUTSIDE RECORDS SUMMARY | 2024-11-20 19:27 | XMS_ITS | Encounter Summary ---
Author Organization [employer] Address [address] [facility] [address] 7t [place] [address] Care Team Providers Care Casting Machine Operator Helper Name Role Phone Joyce Tapia MD Primary Care Provider [phone] Encounter Details Date Type Department Care Team (Latest Contact Info) Description 2024 Travel Social History Tobacco Use Types Packs/Day [...] Description 11/28/2024 9:30 AM EDT Medication Management [facility] MED & PEDS 505 [place] [address] Cristal Muhammad PharmD [address] [place] [address] 12/05/2024 8:45 AM EDT Office Visit [facility] MED & PEDS 505 [place] [address] Joyce Tapia MD 505 [place] [address] 12/25/2024 9:45 AM EDT Office Visit [facility] MEDICINE [address] [place] [address] 02/05/2025 9:00 AM EDT Office Visit [facility] MED & PEDS 505 [place] [address] Ayden Orellana MD 505 [place] [address] documented as of this encounter Visit Diagnoses Not on filedocumented in this encounter Additional Health Concerns Assessment Noted Time PHQ-9 Depression Total Score: 7 09/15/19 25 9:02 AM EDT documented as of this encounter Care Teams Casting Machine Operator Helper Relationship Specialty Start Date End Date Joyce Tapia MD [address] [place] [address] PCP - General Family Medicine 12/17/12 documented as of this encounter
--- OUTSIDE RECORDS SUMMARY | 2024-11-20 19:27 | XMS_ITS | Encounter Summary ---
Author Organization [employer] Address 75 [facility] 7t [place] [address] Care Team Providers Care Restaurant Shift Supervisor Name Role Phone Joyce Tapia MD Primary Care Provider [phone] Reason for Visit * Reason Onset Date Comments Med Refill 07/19/2024 Encounter Details Date Type Department Care Team ([facility] st Contact Info) Description 07/19/2024 Refill [facility]C MED & PEDS 505 [place], [place] [phone] Joyce Tapia MD 505 [place] [address] Social History Tobacco Use Types Packs/Day Years [...] Description 11/28/2024 9:30 AM EDT Medication Management [facility] CHC MED & PEDS 505 [place] [address] Cristal Muhammad PharmD 230 [place] [address] 12/05/2024 8:45 AM EDT Office Visit [facility] MED & PEDS 505 [place] [address] Joyce Tapia MD 505 [place] [address] 12/25/2024 9:45 AM EDT Office Visit [facility] MEDICINE 230 [place] [address] 02/05/2025 9:00 AM EDT Office Visit [facility] MED & PEDS 505 [place] [address] Ayden Orellana MD 505 [place] [address] documented as of this encounter Visit Diagnoses Not on filedocumented in this encounter Care Teams Restaurant Shift Supervisor Relationship Specialty Start Date End Date Joyce Tapia MD 230 [place] [address] PCP - General Family Medicine 06/19/12 documented as of this encounter
--- OUTSIDE RECORDS SUMMARY | 2024-11-20 19:27 | XMS_ITS | Encounter Summary ---
Author Organization [employer] Address [address] [facility] 7t [place] [address] Care Team Providers Care Food Quality Technician Name Role Phone Joyce Tapia MD Primary Care Provider [phone] Reason for Visit * Reason Onset Date Comments Med Refill 04/11/2024 Encounter Details Date Type Department Care Team ([facility] Contact Info) Description 04/11/2024 Telephone [facility] MED & PEDS [address] [place], [place] [phone] Joyce Tapia MD 505 [place] [address] Med Refill Social History Tobacco Use Types [...] t he electric, gas, oil or water [employer] threatened to shut off services in your [...] sent to: [facility] - [place], [place] - [address] [place] [address] documented in this encounter Plan of Treatment Upcoming Encounters Date Type Department Care Team ([facility] st Contact Info) Description 11/28/2024 9:30 AM EDT Medication Management [facility] MED & PEDS [address] [place] [address] Cristal Muhammad PharmD [address] [place] [address] 12/05/2024 8:45 AM EDT Office Visit [facility] [address] [place] [address] Joyce Tapia MD [address] [place] [address] 12/25/2024 9:45 AM EDT Office Visit [facility] [address] [place] [address] 02/05/2025 9:00 AM EDT Office Visit [facility] MED & PEDS [address] [place] [address] Ayden Orellana MD 505 [place] [address] documented as of this encounter Visit Diagnoses Not on filedocumented in this encounter Care Teams Food Quality Technician Relationship Specialty Start Date End Date Joyce Tapia MD [address] [place] [id number] PCP - General Family Medicine 06/19/12 documented as of this encounter
--- OUTSIDE RECORDS SUMMARY | 2024-11-20 19:27 | XMS_ITS | Encounter Summary ---
Author Organization [employer] Address 75 [facility] 7t [place] [address] Care Team Providers Care Interstate Bus Driver Name Role Phone Joyce Tapia MD Primary Care Provider [phone] Reason for Visit * Reason Onset Date Comments Med Refill 11/19/2024 Encounter Details Date Type Department Care Team (Late st Contact Info) Description 11/19/2024 Refill [facility] [address] [place] [address] Joyce Tapia MD [address] [place] [address] Status post surgical removal of nail matrix [...] ([facility] st Contact Info) Description 11/28/2024 9:30 AM EDT Medication Management [facility] MED & PEDS [address] [place] [address] Cristal Muhammad PharmD [address] [place] [address] 12/05/2024 8:45 AM EDT Office Visit [facility] MED & PEDS [address] [place] [address] Joyce Tapia MD 505 [place] [address] 12/25/2024 9:45 AM EDT Office Visit [facility] [address] [place] [address] 02/05/2025 9:00 AM EDT Office Visit [facility] MED & PEDS [address] [place] [address] Ayden Orellana MD 505 [place] [address] documented as of this encounter Visit Diagnoses Diagnosis Status post surgical removal of nail matrix of toe of left foot documented in this encounter Additional Health Concerns Assessment Noted Time PHQ-9 Depression Total Score: 7 09/15/19 25 9:02 AM EDT documented as of this encounter Care Teams Interstate Bus Driver Relationship Specialty Start Date End Date Joyce Tapia MD [address] [place] [phone] PCP - General Family Medicine 06/19/12 documented as of this encounter
--- OUTSIDE RECORDS SUMMARY | 2024-11-20 19:27 | XMS_ITS | Encounter Summary ---
Author Organization [employer] Address [address] [facility] 7t [place] [address] Care Team Providers Care Young Adult Librarian Name Role Phone Joyce Tapia MD Primary Care Provider [phone] Reason for Visit * Reason Onset Date Comments Med Refill 04/19/2023 Encounter Details Date Type Department Care Team (Late st Contact Info) Description 04/19/2023 Telephone [facility] MED & PEDS [address] [place] [address] Joyce Tapia MD [address] [place] [address] Med Refill Social History Tobacco Use Types [...] [facility] [address] [place] [address] Cristal Muhammad PharmD 230 [place] [address] 12/05/2024 8:45 AM EDT Office Visit [facility] MED & PEDS [address] [place] [address] Joyce Tapia MD [address] [place] [address] 12/25/2024 9:45 AM EDT Office Visit [facility] MEDICINE [address] [place] [address] 02/05/2025 9:00 AM EDT Office Visit [facility] MED & PEDS [address] [place] [phone] Ayden Orellana MD 505 [place] [address] documented as of this encounter Visit Diagnoses Not on filedocumented in this encounter Care Teams Young Adult Librarian Relationship Specialty Start Date End Date Joyce Tapia MD [address] [place] [phone] PCP - General Family Medicine 06/19/12 documented as of this encounter
--- OUTSIDE RECORDS SUMMARY | 2024-11-20 19:27 | XMS_ITS | Encounter Summary ---
Author Organization [employer] Address [address] [facility] 7t [place] [address] Care Team Providers Care Incident Response Specialist Name Role Phone Joyce Tapia MD Primary Care Provider [phone] Reason for Visit * Reason Onset Date Comments Med Refill 07/25/2024 Encounter Details Date Type Department Care Team (Late st Contact Info) Description 07/25/2024 Refill [facility] MEDICINE [address] [place] [address] Emerson Keith MD 505 [place], [place] [phone] Status post surgical removal of nail matrix [...] [facility] MED & PEDS [address] [place] [address] Cristal Muhammad PharmD [address] [place] [address] 12/05/2024 8:45 AM EDT Office Visit [facility] MED & PEDS [address] [place] [address] Joyce Tapia MD 505 [place] [address] 12/25/2024 9:45 AM EDT Office Visit [facility] MEDICINE [address] [place] [address] 02/05/2025 9:00 AM EDT Office Visit [facility] MED & PEDS [address] [place] [address] Ayden Orellana MD 505 [place] [address] documented as of this encounter Visit Diagnoses Diagnosis Status post surgical removal of nail matrix of toe of left foot documented in this encounter Care Teams Incident Response Specialist Relationship Specialty Start Date End Date Joyce Tapia MD [address] [place] [address] PCP - General Family Medicine 06/19/12 documented as of this encounter
--- OUTSIDE RECORDS SUMMARY | 2024-11-20 19:27 | XMS_ITS | Encounter Summary ---
Author Organization [employer] Address [address] [facility] 7t [place] [address] Care Team Providers Care Diesel Dinkey Operator Name Role Phone Joyce Tapia MD Primary Care Provider Reason for Visit * Reason Onset Date Comments Appt 08/09/2024 Encounter Details Date Type Department Care Team ([facility] st Contact Info) Description 08/09/2024 Telephone [facility] MEDICINE [address] [place] [address] Joyce Tapia MD [address] [place], [place] [phone] Appt Social History Tobacco Use Types Packs/Day [...] can be changed for a phone visit. [phone] documented in this encounter Plan of Treatment Upcoming Encounters Date Type Department Care Team (Late st Contact Info) Description 11/28/2024 9:30 AM EDT Medication Management [facility] MED & PEDS [address] [place] [address] Cristal Muhammad, PharmD [address] [place] [address] 12/05/2024 8:45 AM EDT Office Visit [facility] MED & PEDS [address] [place] [address] Joyce Tapia MD 505 [place] [address] 12/25/2024 9:45 AM EDT Office Visit [facility] MEDICINE [address] [place] [address] 02/05/2025 9:00 AM EDT Office Visit [facility] MED & PEDS [address] [place] [address] Ayden Orellana MD 505 [place] [address] documented as of this encounter Visit Diagnoses Not on filedocumented in this encounter Care Teams Diesel Dinkey Operator Relationship Specialty Start Date End Date Joyce Tapia MD [address] [place] [address] PCP - General Family Medicine 06/19/12 documented as of this encounter
--- OUTSIDE RECORDS SUMMARY | 2024-11-20 19:27 | XMS_ITS | Clinical Summary ---
Author Organization [employer] Address [address] [facility] 7t [place] [address] Care Team Providers Care Processing Assistant Name Role Phone Joyce Tapia MD Primary Care Provider Allergies Active Allergy Reactions Criticality Noted Date [...] for wheezing. 75 mL 2 023 Active triamcinolone (Kenalog) 0.1 % creamIndication s:Pigmented purpura (CMS/HCC) Apply topically if needed in the morning and at bedtime (pain and swelling). 30 g 2 024 Active hydroCHLOROthia zide (Microzide) 12.5 MG [...] daily. 025 Active Blood Glucose Monitoring Suppl ([employer] Lite) w/Device kit Test blood sugar as [...] EVERY EVENING 30 tablet 3 025 Active lidocaine (Lidoderm) 5 % patchIndication s:Pain APPLY 1 PATCH TOPICALLY EVER DAY. REMOVE AND DISCARD PATCH WITHIN 12 HOURS OR DIRECTED BY MD. 30 patch Active Lancets 33G miscIndications :Type 2 diabetes mellitus without complication, without long-term current use of insulin ([facility]) USE TO TEST BLOOD SUGAR THREE TIMES A DAY 100 each Active glucose blood (FREESTYLE LITE) test stripIndication s:Type 2 diabetes mellitus without complication, without long-term current use of insulin ([facility]) USE TO TEST BLOOD SUGAR THREE TIMES A DAY 100 each 025 2025 Active varenicline (Chantix) 1 MG tablet Take 1/2 tablet by mouth daily for 3 days, then 1/2 tablet twice daily for 4 days, then 1 tablet twice daily thereafter. Take with a full glass of water. 60 tablet 2 Active cyanocobalamin (Vitamin B-12) 1000 MCG tablet TAKE ONE TABLET EVERY MORNING 90 tablet 1 Active gabapentin (Neurontin) 100 MG capsule TAKE 1 CAPSULE BY MOUTH AT BEDTIME 30 capsule Active pramipexole (Mirapex) 0.5 MG tablet TAKE ONE TABLET THREE TIMES DAILY IN THE MORNING, EVENING AND BEDTIME 90 tablet 11 Active oxyCODONE (Roxicodone) 5 MG immediate release tabletIndicatio ns:Status post surgical removal of nail matrix of toe of left foot Take 1 tablet (5 mg) by mouth every 6 (six) hours if needed for severe pain. 30 tablet 025 Active pramipexole (Mirapex) 0.5 MG tablet TAKE ONE TABLET THREE TIMES DAILY IN THE MORNING, EVENING AND BEDTIME 90 tablet 11 024 2024 Discontinued cyanocobalamin (Vitamin B-12) 1000 MCG tablet TAKE ONE TABLET EVERY MORNING 90 tablet 1 024 2024 Discontinued(R eorder (will not trigger notification to Pharmacy)) tiZANidine (Zanaflex) 4 MG tabletIndicatio ns:Muscle spasm [...] or as directed by MD. 30 patch 2024 Discontinued(R eorder (will not trigger notification to Pharmacy)) Continuous Glucose Sensor (FreeStyle Gwendolyn 3 Plus Sensor) misc 1 each every 15 days. 2 each 2024 Discontinued(C ost of medication) Lancets 33G [...] eorder (will not trigger notification to Pharmacy)) gabapentin (Neurontin) 100 MG capsule Take 1 capsule (100 mg) by mouth at bedtime. 30 capsule 025 2024 Discontinued oxyCODONE (Roxicodone) 5 MG [...] Active Problems Problem Noted Date Diagnosed Date Long-term current use of opiate analgesic 2024 GERD (gastroesophageal reflux disease) S/P gastric bypass [...] community supports PLAN: 1. Follow up with [facility]: Not recommended for follow-up 2. Behavioral Recommendations aRegis Adler will reach out to [place] and/or [facility] if further supports needed Status post surgical [...] Encounters Date Type Department Care Team Description 11/19/2024 Refill [facility] [address] [facility] [place] [address] Joyce Tapia MD Status post surgical removal of nail matrix of toe of left foot 11/17/2024 Refill [facility] CHC MED & PEDS [address] [facility] [place] [address] Joyce Tapia MD 11/16/2024 Refill [facility] WALK-IN CENTER [address] [place] [address] Odilon Mccrary MD 2024 Travel 2024 Orders Only [facility] [address] [facility] [place] [address] Joyce Tapia MD 2024 Refill [facility] MED & PEDS [address] [facility] [place] [address] Joyce Tapia MD 11/14/2024 9:30 AM EDT Clinical Support [facility] [address] [place] [address] Katherine Casper, financial services counselor bilateral low back pain with left-sided sciatica (Primary Dx); Long-term current use of opiate analgesic 11/14/2024 Telephone [facility] [address] [place] [address] Katherine Casper RN 11/14/2024 Travel 11/12/2024 Refill [facility] MED[facility] [address] [facility] [place] [address] Joyce Tapia MD Status post surgical removal of nail matrix of toe of left foot 11/05/2024 Refill [facility] MEDICINE [address] [place] [address] Joyce Tapia MD Status post surgical removal of nail matrix of toe of left foot 10/31/2024 Travel 10/29/2024 Refill [facility] MED[facility] [address] [facility] [place] [address] Joyce Tapia MD Status post surgical removal of nail matrix of toe of left foot 10/25/2024 Refill [facility] [address] [place] [address] Joyce Tapia MD 10/24/2024 Refill [facility] MEDICINE [address] [place] [address] Ayden Orellana MD Status post surgical removal of nail matrix of toe of left foot 10/23/2024 Refill [facility] CH[facility] MED & PEDS [address] [place], [place] [phone] Joyce Tapia MD Pain; Type 2 diabetes mellitus without complication, without long-term current use of insulin ([facility]) 10/22/2024 Refill [facility] MEDICINE [address] [place] [address] Ayden Orellana MD Status post surgical removal of nail matrix of toe of left foot 10/20/2024 10:00 AM EDT Office Visit [facility] [address] [place] [address] Name, MD Odilon Carpal tunnel syndrome of right wrist (Primary Dx); History of bilateral carpal tunnel release; Neuropathic pain of right hand 10/20/2024 Travel 10/20/2024 Refill [facility] [address] [place] [address] Joyce Tapia MD Muscle spasm 10/19/2024 Travel 10/19/2024 Telephone [facility] [address] [place] [address] Katherine Casper, RN rn appeals 10/18/2024 Telephone [facility] [address] [place] [address] Joyce Tapia MD appointment cx 10/18/2024 Refill [facility] MED & PEDS [address] [place] [address] Joyce Tapia MD 10/15/2024 Refill [facility] MEDICINE [address] [place] [address] Emerson Keith MD Status post surgical removal of nail matrix of toe of left foot 10/08/2024 Refill [facility] MEDICINE [address] [place] [address] Joyce Tapia MD Status post surgical removal of nail matrix of toe of left foot 10/07/2024 Refill [facility] MEDICINE [address] [place] [address] Joyce Tapia MD Status post surgical removal of nail matrix of toe of left foot 10/01/2024 Refill [facility] MEDICINE [address] [place] [address] Joyce Tapia MD Status post surgical removal of nail matrix of toe of left foot 09/26/2024 Refill [facility] MED & PEDS [address] [place] [address] Joyce Tapia MD Status post surgical removal of nail matrix of toe of left foot 09/25/2024 Orders Only [facility] [address] [place] [address] Joyce Tapia MD 09/25/2024 Travel 09/25/2024 Refill [facility] MEDICINE [address] [place] [address] Joyce Tapia MD Status post surgical removal of nail matrix of toe of left foot 09/24/2024 Refill [facility] MED & PEDS [address] [place] [address] Joyce Tapia MD Status post surgical removal of nail matrix of toe of left foot 09/17/2024 Refill [facility] [address] [place] [address] Emerson Keith MD Status post surgical removal of nail matrix of toe of left foot 09/17/2024 Refill [facility] [address] [place] [address] Joyce Tapia MD Status post surgical removal of nail matrix of toe of left foot 09/14/2024 9:15 AM EDT Office Visit [facility] [address] [place] [address] Joyce Tapia MD Type 2 diabetes mellitus without complication, without long-term current use of insulin ([facility]) (Primary Dx); Gastroesophageal reflux disease without esophagitis; Nevus 09/14/2024 Travel 09/13/2024 Telephone [facility]S [address] [place] [address] Joyce Tapia MD Chart Prep 09/11/2024 Refill [facility] CH[facility] MED & PEDS [address] [place] [address] Joyce Tapia MD 09/11/2024 Telephone [facility] MEDICINE [address] [place] [address] Joyce Tapia MD Med Refill 09/10/2024 Refill [facility] MED & PEDS [address] [place] [address] Joyce Tapia MD Status post surgical removal of nail matrix of toe of left foot 09/07/2024 Patient Outreach [facility] MEDICINE [address] [place] [phone] Joyce Tapia MD Pre-visit Planning (SDOH screening completed on 08/30/24) 09/07/2024 Refill [facility] [address] [place] [address] Joyce Tapia MD 09/05/2024 Refill [facility] [address] [place] [address] Joyce Tapia MD Status post surgical removal of nail matrix of toe of left foot 09/05/2024 Refill [facility] [address] [place] [address] Jenny Schmidt MD Pain 09/05/2024 Refill [facility] [address] [place] [address] Joyce Tapia MD Status post surgical removal of nail matrix of toe of left foot 09/03/2024 Telephone [facility] [address] [place] [address] Cristal Muhammad, Deonte 08/30/2024 Patient Outreach [facility] [address] [place] [address] Joyce Tapia MD Pre-visit Planning (SDOH negative, Tobacco screening negative. ) 08/29/2024 Refill [facility] [address] [place] [address] Joyce Tapia MD Status post surgical removal of nail matrix of toe of left foot 08/23/2024 Patient Outreach [facility] MED & PEDS [address] [place] [address] Joyce Tapia MD Transition Of Care (Tcm) from Last 3 Months Immunizations Immunization Administration Dates Next Due Influenza injectable quadriv [...] [facility] [address] [place] [address] Cristal Muhammad, PharmD [address] [place] [address] 12/05/2024 8:45 AM EDT Office Visit [facility] CH[facility] MED & PEDS [address] [place] [address] Joyce Tapia MD 505 [place] [address] 12/25/2024 9:45 AM EDT Office Visit [facility] MEDICINE [address] [place] [address] 02/05/2025 9:00 AM EDT Office Visit [facility] MED & PEDS [address] [place] [address] Ayden Orellana MD [address] [place] [address] Health Maintenance Due Date Last Done Comments [...] 09/14/2025 09/14/2024 Depression Screening 09/14/2025 09/14/2024, 09/15/19 Disability Screening 09/14/2025 09/14/2024 Diabetes: Urine Protein Screening 09/25/2025 09/25/2024, 08/20/2021 [...] patient's age to complete this topic Meningococcal B Vaccine Aged Out No l onger eligible based on patient's age to complete [...] Name Priority Date/Time Associated Diagnosis Comments POCT GARETH-14 URINE DRUG SCREEN Routine 11/14/2024 10:19 AM EDT Chronic bilateral low back pain with left-sided sciatica POCT GLYCATED HEMOGLOBIN, TOTAL Routine 10/31/2024 10:13 AM EDT Type 2 diabetes mellitus without complication, without long-term current use of insulin ([facility]) ALBUMIN, RANDOM URINE W/CREATININE Routine 09/25/2024 3:50 PM EDT LIPID PANEL, STANDARD Routine 09/25/2024 3:47 PM EDT POCT GLUCOSE Routine 09/14/2024 9:02 AM EDT Type 2 diabetes mellitus without complication, without long-term current use of insulin ([facility]) CT ABDOMEN PELVIS W CONTRAST Routine 09/12/2024 1:12 PM EDT BI MAMMOGRAM SCREENING TOMOSYNTHESIS BILATERAL Routine 05/28/2023 8:58 AM EST HPV MRNA E6/E7 Routine 03/31/2021 9:06 AM EDT THINPREP PAP Routine 03/31/2021 9:06 AM EDT HM COLONOSCOPY Routine 02/20/2015 from Last 3 Months or Most Recently Relevant to Health Maintenance Results * POCT GARETH-14 Urine Drug Screen (11/14/2024 10:19 AM EDT) Oxycodone Screen, Urine Positive Urine Urine specimen obtained by clean catch procedure / Unknown 11/14/2024 10:19 AM EDT Katherine Jones RN - 11/14/2024 10:19 AM EDT Lot# [id number] Exp: 02-20-26 Joyce Tapia MD POINT OF CARE TEST ENTER/EDIT OR DERABLES Final Result * (ABNORMAL) POCT A1C (10/31/2024 10:13 AM EDT) Hemoglobin A1C 7.1(A) 4.0 - 6.0 % QC Media Lot # [id number] Lot# Expiration Date Blood 10/31/2024 10:1 3 AM EDT us Joyce Tapia MD POINT OF CARE TEST ENTER/EDIT OR DERABLES Final Result * Albumin, Random Urine W/Creatinine (09/25/2024 3:50 PM EDT) Creatinine, Urine 83.95 mg/dL [facility] Microalbumin Urine <5.0 mg/L [facility] Microalbum Creatinine Ratio Ur TNP <30 ug/mg cr [facility] Comment:Unable to calculate albumin/creatinine ratio due to lowmicroalbumin or creatinine result. 09/25/2024 3:50 PM EDT 09/25/2024 5:55 PM EDT us Joyce Tapia MD LAB URINE ORDERABLES Final Resul t [facility] [address] [place] [phone] * Lipid Panel, Standard (09/25/2024 3:47 PM EDT) Triglycerides 56 <150 mg/dL [facility] Comment:Desirable Triglyceri de: less than 150 mg/dLBorderline High Triglyceride 150-199 mg/dLHigh Triglyceride: 200-499 mg/dLVery High Triglyceride: greater than or equal to 5OO mg/dL Cholesterol 119 <200 mg/dL [facility] Comment:Desirable Cholestero l: less than 200 mg/dLBorderline High Cholesterol: 200-239 mg/dLHigh Cholesterol: greater than 239 mg/dL LDL Cholesterol Calculated 47 <100 mg/dL [facility] Comment:Desirable LDL: less than 100 mg/dLNear Optimal/Above Optimal LDL: 110- 129 mg/dLBorderline High LDL: 130-159 mg/dLHigh LDL: 160-189 mg/dLVery High LDL: greater than or equal to 190 mg/dL HDL Cholesterol 61 >40 mg/dL [facility] Comment:Desirable HDL: great er than 40 mg/dL Note: This HDL assay may give artificially low results in patients with liver disease. 09/25/2024 3:47 PM EDT 09/25/2024 6:08 PM EDT Joyce Tapia MD LAB BLOOD ORDERABLES Final Resul t [facility] [address] [facility] [place] [address] [phone] * POCT Glucose (09/14/2024 9:02 AM EDT) Glucose Blood, POC 197 60 - 200 mg/dL QC Media Lot # [id number] Lot# Expiration Date Blood Capillary blood specimen / Unknown 09/14/2024 9:02 AM EDT us Joyce Tapia MD POINT OF CARE TEST ENTER/EDIT OR DERABLES Final Result * CT Abdomen Pelvis w/ Contrast (09/12/2024 1:12 PM EDT) Anatomical Region Laterality Modality Body, Pelvis, Abdomen Computed T omography 09/12/2024 1:12 PM EDT Narrative 09/12/2024 1:13 PM EDT ? [facility] ?[address] ?[place] [address] ? CT Scan Report ? Signed ? Patient: Grover,Nayely ?MR#: [id number] ?? 541 ? : 1960 ?Acct:[id number] ? Age/Sex: 63 / F ?ADM Date: //25 ? Loc: HO.CT ? Attending Dr: Angie Mosquera MD ? Ordering Physician: Mona Anne ?? Date of Service: 09/11/24 ?? Procedure(s): CT abdomen pelvis w IV con ?? Accession Number(s): [id number] ? cc: Mona Anne; Joyce Tapia MD ? Report Number: ?? [id number]: Total DLP = ??369.00 mGy-cm ? CLINICAL HISTORY: R10.9 - Unspecified abdominal pain ? CT abdomen and pelvis with contrast ? Comparison: CT/IN/SR - CT ABDOMEN PELVIS WO IV CON [...] DD/ 1312 ? TD/TT: 09/12/24 1312 ? Public Relations Officer: ? Procedure Note Javed, Michelle - 09/12/[address] [place] [address] [address] Scan Report Signed Patient: Nayely GroverMR#: [id number] : 1960Acct:[id number] Age/Sex: 63 / FADM Date: 09/11/24 Loc: HO.CT Attending Dr: Angie Mosquera MD Ordering Physician: Mona Anne Date of Service: 09/11/24 Procedure(s): CT abdomen pelvis w IV con Accession Number(s): [id number] cc: Mona Anne; Joyce Tapia MD Report Number: [id number]: Total DLP = 369.00 mGy-cm CLINICAL HISTORY: R10.9 - Unspecified abdominal pain CT abdomen and pelvis with contrast Comparison: CT/IN/SR - CT ABDOMEN PELVIS WO IV CON [...] 09/12/24 1313 DD/ 1312 TD/TT: 09/12/24 1312 Public Relations Officer: [facility] External Provider IMG CT PROCEDURES Final Result * BI Mammogram Screening Tomosynthesis Bilateral (05/28/2023 8:58 AM EST) Anatomical Region Laterality Modality Breast Bilateral Mammography 05/28/2023 8:58 AM EST Narrative 06/03/2023 8:41 AM EST ? [facility] ? [address] ?[place] [address] ? Mammography Report ? Signed ? Patient: Grover,Nayely ?MR#: [id number] ?? [id number] ? : 1960 ?Acct:[id number] ? Age/Sex: 62 / F ?ADM Date: 05/28/ ? Loc: HO.MAMMO ? Attending Dr: Joyce S Willie MD ? Ordering Physician: Willie,Joyce Daniels MD ?Results: 1Negati ?? ve ? Date of Service: 05/28/ ?Follow Up: 1 Year From Orig ?? inal Mammogram ? Procedure(s): MM tomosynthesis screening BI ?? Accession Number(s): [id number] ? cc: Joyce Tapia MD ? EXAMINATION: [...] by Radha Colon MD in OV> ? 06/03/23 0837 ? DD/ 08 ? TD/TT: ? Public Relations Officer: ? Procedure Note Javed, Michelle - 06/03/2023 [facility] [address] [place] [address] [place] [address] Mammography Report Signed Patient: Nayely GroverMR#: [id number] : 1960Acct:[id number] Age/Sex: 62 / FADM Date: 05/28/23 Loc: VISHNU Attending Dr: Joyce Tapia MD Ordering Physician: Joyce Tapia MDResults: 1Negati ve Date of Service: 05/28/23Follow Up: 1 Year From Orig inal Mammogram Procedure(s): MM tomosynthesis screening BI Accession Number(s): [id number] cc: Joyce Tapia MD EXAMINATION: MM SCREENING [...] in OV> 06/03/23 0837 DD/ 0858 TD/TT: Public Relations Officer: Joyce Tapia MD IMG BI PROCEDURES Final Result * THINPREP PAP (03/31/2021 9:06 AM EDT) Clinical Information: H/O HYST, H/O CERVICAL DYSPLASIA [facility] COMMENT SEE COMMENT [facility] [...] historic and ?? current clinical information. ?? Is Analyst : SEE COMMENT [facility] Comment: JXM, CT(ASCP) CT screening location: [address] ??[id number] Interpretation/R esult: Negative for intraepithelial lesion or malignancy. [facility] LMP: NONE GIVEN [facility] Prev. BX: NONE GIVEN [facility] Prev. PAP: 12/2016 NIL/NEG [facility] SOURCE: None given [facility] Statement Of Adequacy: SEE COMMENT [facility] Comment: Satisfactory for evaluation. Endocervical/transformation zone component absent. Age and/or menstrual status not provided 03/31/2021 9:06 AM EDT Noa De Santiago [facility] LAB PATHOLOGY ORDERABLES Final Result Performing Organization Address [facility] Co de Phone Number [facility] [address] * HPV mRNA E6/E7 (03/31/2021 9:06 AM EDT) HPV nRNA E6/E7 Not Detected Not Detected [facility] Comment: Methodology: [employer] Consultant-Mediated Amplification This assay detects E6/E7 viral messenger RNA (mRNA) from 14 high-risk HPV types (16,18,31,33,35,39,45,51,52,56,58,59,66,68). ? The analytical performance characteristics of this assay have been determined by [employer]. The modifications have not been cleared or approved by the FDA. This assay has been validated pursuant to the CLIA regulations and is used for clinical purposes. ?? For additional information, please refer to http://education.TrialScope.Duolingo/faq/URC103p8 (This link if provided for information/ educational purposes only.) 03/31/2021 9:06 AM EDT Noa De Santiago [facility] LAB BLOOD ORDERABLES Patt l Result Performing Organization Address [facility] Co de Phone Number [facility] [address] [place] [address], * Hm Colonoscopy (02/20/2015) Colonoscopy Normal Normal Narrative Zohra Benavidez - 02/20/2015 Repeat in 10 year Historical Provider HEALTH MAINTENANCE Final Result from Last 3 Months or Most Recently Relevant to Health Maintenance Insurance [facility] Care Teams Processing Assistant Relationship Specialty Start Date End Date Joyce Tapia MD [address] [place] [phone] PCP - General Family Medicine 06/19/12
--- OUTSIDE RECORDS SUMMARY | 2024-11-20 19:27 | XMS_ITS | Encounter Summary ---
Author Organization [employer] Address [address] [place] [address] Care Team Providers Care Business Analytics Specialist Name Role Phone Joyce Tapia MD Primary Care Provider [phone] Reason for Visit * Reason Comments Med Refill Encounter Details Date Type Department Care Team ([facility] st Contact Info) Description 11/16/2024 Refill [facility] [address] [place], [place] [phone] Name, MD Odilon [address] [place], [place] [phone] Social History Tobacco Use Types Packs/Day Years [...] [facility] [address] [place] [address] Cristal Muhammad, PharmD [address] [place] [phone] 12/05/2024 8:45 AM EDT Office Visit [facility] PEDS [address] [place] [address] Joyce Tapia MD 505 [place] [address] 12/25/2024 9:45 AM EDT Office Visit [facility] MED[facility] [address] [place] [address] 02/05/2025 9:00 AM EDT Office Visit [facility] [address] [place] [address] Ayden Orellana MD [address] [place] [address] documented as of this encounter Visit Diagnoses Not on filedocumented in this encounter Additional Health Concerns Assessment Noted Time PHQ-9 Depression Total Score: 7 09/15/19 25 9:02 AM EDT documented as of this encounter Care Teams Business Analytics Specialist Relationship Specialty Start Date End Date Joyce Tapia MD [address] [place] [phone] PCP - General Family Medicine 06/19/12 documented as of this encounter
--- OUTSIDE RECORDS SUMMARY | 2024-11-20 19:27 | XMS_ITS | Encounter Summary ---
Author Organization [employer] Address [address] [facility] 7t [place] [address] Care Team Providers Care Computer Teacher Name Role Phone Joyce Tapia MD Primary Care Provider [phone] Encounter Details Date Type Department Care Team (Latest Contact Info) Description 03/21/2019 Abstract [facility] CONVERSIONS Dental, Provider, DDS Social History [...] Care Team ( st Contact Info) Description 11/28/2024 9:30 AM EDT Medication Management [facility] MED & PEDS [address] [place] [address] Cristal Muhammad, PharmD [address] [place] [address] 12/05/2024 8:45 AM EDT Office Visit [facility] MED & PEDS [address] [place] [address] Joyce Tapia MD [address] [place] [address] 12/25/2024 9:45 AM EDT Office Visit [facility] MEDICINE [address] [place] [address] 02/05/2025 9:00 AM EDT Office Visit [facility] MED & PEDS [address] [place] [address] Ayden Orellana MD 505 [place] [address] documented as of this encounter Visit Diagnoses Not on filedocumented in this encounter Care Teams Computer Teacher Relationship Specialty Start Date End Date Joyce Tapia MD [address] [place] [phone] PCP - General Family Medicine 06/19/12 documented as of this encounter
--- OUTSIDE RECORDS SUMMARY | 2024-11-20 19:27 | XMS_ITS | Encounter Summary ---
Author Organization [employer] Address 75 [facility] 7t [place] [address] Care Team Providers Care Clinical Molecular Geneticist Name Role Phone Joyce Tapia MD Primary Care Provider [phone] Reason for Visit * Reason Onset Date Comments Med Refill 08/15/2024 Encounter Details Date Type Department Care Team ([facility] st Contact Info) Description 08/15/[address] [facility] MED & PEDS 505 [place], [place] [phone] Joyce Tapia MD 505 [place] [address] Status post surgical removal of nail matrix [...] [facility] MED & PEDS 505 [place] [address] Cristal Muhammad PharmD 230 [place] [address] 12/05/2024 8:45 AM EDT Office Visit [facility] MED & PEDS 505 [place] [address] Joyce Tapia MD 505 [place] [address] 12/25/2024 9:45 AM EDT Office Visit [facility] MEDICINE 230 [place] [address] 02/05/2025 9:00 AM EDT Office Visit [facility] MED & PEDS 505 [place] [address] Ayden Orellana MD 505 [place] [address] documented as of this encounter Visit Diagnoses Diagnosis Status post surgical removal of nail matrix of toe of left foot documented in this encounter Care Teams Clinical Molecular Geneticist Relationship Specialty Start Date End Date Joyce Tapia MD 230 [place] [address] PCP - General Family Medicine 06/19/12 documented as of this encounter
--- OUTSIDE RECORDS SUMMARY | 2024-11-20 19:27 | XMS_ITS ---
Author Organization [employer] Address [address] [place] [address] 7t [place] [address] Care Team Providers Care Teenage Babysitter Name Role Phone Joyce Tapia MD Primary Care Provider [phone] STRIPER Status:Enrolled (Active) Start date:10/22/2022 Enrollment date:10/22/2022 Case Team Name Relationship Phone Katherine Casper RN(Responsible Staff) Registered Nurse Continued Care and Services Coordination
--- OUTSIDE RECORDS SUMMARY | 2024-11-20 19:28 | XMS_ITS | Encounter Summary ---
Author Organization [employer] Address 75 [facility] 7t [place] [address] Care Team Providers Care Engineering Department Chair Name Role Phone Joyce Tapia MD Primary Care Provider [phone] Reason for Visit * Reason Onset Date Comments Med Refill 06/28/2023 Encounter Details Date Type Department Care Team ([facility] st Contact Info) Description 06/28/2023 Telephone [facility] MEDICINE 230 [place], [place] [phone] Joyce Tapia MD [address] [place] [address] Med Refill Social History Tobacco Use Types [...] sent to: [facility] [place] - [address] [facility] documented in this encounter Plan of Treatment Upcoming Encounters Date Type Department Care Team (Late st Contact Info) Description 11/28/2024 9:30 AM EDT Medication Management [facility] MED & PEDS 505 [place] [address] Cristal Muhmamad PharmD 230 [place] [address] 12/05/2024 8:45 AM EDT Office Visit [facility] MED & PEDS 505 [place] [address] Joyce Tapia MD 505 [place] [address] 12/25/2024 9:45 AM EDT Office Visit [facility] MEDICINE 230 [place] [address] 02/05/2025 9:00 AM EDT Office Visit [facility] MED & PEDS 505 [place] [address] Ayden Orellana MD 505 [place] [address] documented as of this encounter Visit Diagnoses Not on filedocumented in this encounter Care Teams Engineering Department Chair Relationship Specialty Start Date End Date Joyce Tapia MD [address] [place] [address] PCP - General Family Medicine 06/19/12 documented as of this encounter
--- OUTSIDE RECORDS SUMMARY | 2024-11-20 19:28 | XMS_ITS | Encounter Summary ---
Author Organization [employer] Address 75 [facility] 7t [place] [address] Care Team Providers Care Production Specialist Name Role Phone Joyce Tapia MD Primary Care Provider [phone] Reason for Visit * Reason Comments Med Refill Encounter Details Date Type Department Care Team (Late st Contact Info) Description 06/07/2023 Refill [facility] MED & PEDS 505 [place], [place] [phone] Ev Lewis, ANP 230 [place] [address] Status post surgical removal of nail matrix [...] [facility] 505 [place] [address] Cristal Muhammad, PharmD 230 [place], [place] [phone] 12/05/2024 8:45 AM EDT Office Visit [facility] MED & PEDS 505 [place] [address] Joyce Tapia MD 505 [place] [address] 12/25/2024 9:45 AM EDT Office Visit [facility] MEDICINE [address] [place] [address] 02/05/2025 9:00 AM EDT Office Visit [facility] MED & PEDS 505 [place] [address] Ayden Orellana MD 505 [place] [address] documented as of this encounter Visit Diagnoses Diagnosis Status post surgical removal of nail matrix of toe of left foot documented in this encounter Care Teams Production Specialist Relationship Specialty Start Date End Date Joyce Tapia MD [address] [place] [address] PCP - General Family Medicine 06/19/12 documented as of this encounter
--- OUTSIDE RECORDS SUMMARY | 2024-11-20 19:28 | XMS_ITS | Encounter Summary ---
Author Organization [employer] Address 75 [facility] 7t [place] [address] Care Team Providers Care Pin Puller Name Role Phone Joyce Tapia MD Primary Care Provider [phone] Reason for Visit * Reason Onset Date Comments Med Refill 05/28/2024 Encounter Details Date Type Department Care Team ([facility] st Contact Info) Description 05/28/2024 Refill [facility] CHC MED & PEDS 505 [place], [place] [phone] Joyce Tapia MD 505 [place] [address] Status post surgical removal of nail matrix [...] [facility]EDS 505 [place] [address] Cristal Muhammad PharmD 230 [place] [address] 12/05/2024 8:45 AM EDT Office Visit [facility] MED & PEDS 505 [place] [address] Joyce Tapia MD 505 [place] [address] 12/25/2024 9:45 AM EDT Office Visit [facility] MEDICINE 230 [place] [address] 02/05/2025 9:00 AM EDT Office Visit [facility] MED & PEDS 505 [place] [address] Ayden Orellana MD 505 [place] [address] documented as of this encounter Visit Diagnoses Diagnosis Status post surgical removal of nail matrix of toe of left foot documented in this encounter Care Teams Pin Puller Relationship Specialty Start Date End Date Jyoce Tapia MD 230 [place] [address] PCP - General Family Medicine 06/19/12 documented as of this encounter
--- OUTSIDE RECORDS SUMMARY | 2024-11-20 19:28 | XMS_ITS | Encounter Summary ---
Author Organization [employer] Address 75 [facility] 7t [place] [address] Care Team Providers Care Classroom Instructional Aide Name Role Phone Joyce Tapia MD Primary Care Provider [phone] Encounter Details Date Type Department Care Team ([facility] Contact Info) Description 10/26/2022 Orders Only [facility] CHC MED & PEDS 505 [place], [place] [phone] Emerson Keith MD 505 [place] [address] Social History Tobacco Use Types Packs/Day Years [...] Department Care Team (Late Contact Info) Description 11/28/2024 9:30 AM EDT Medication Management [facility] CHC MED & PEDS 505 [place] [address] Muhammad, Deonte Bee 230 [place] [address] 12/05/2024 8:45 AM EDT Office Visit [facility] MED & PEDS 505 [place] [address] Joyce Tapia MD 505 [place] [address] 12/25/2024 9:45 AM EDT Office Visit [facility] MEDICINE 230 [place] [address] 02/05/2025 9:00 AM EDT Office Visit [facility] MED & PEDS 505 [place] [address] Ayden Orellana MD 505 [place] [address] documented as of this encounter Visit Diagnoses Not on filedocumented in this encounter Care Teams Classroom Instructional Aide Relationship Specialty Start Date End Date Joyce Tapia MD [address] [place] [address] PCP - General Family Medicine 06/19/12 documented as of this encounter
--- OUTSIDE RECORDS SUMMARY | 2024-11-20 19:28 | XMS_ITS | Encounter Summary ---
Author Organization [employer] Address 75 [facility] 7[place] [address] Care Team Providers Care Keyboard Instrument Repairer Name Role Phone Joyce Tapia MD Primary Care Provider [phone] Reason for Visit * Reason Comments Med Refill Encounter Details Date Type Department Care Team (Late st Contact Info) Description 07/29/2023 Refill [facility] MEDICINE 230 [place], [place] [phone] Joyce Tapia MD 505 [place] [address] Status post surgical removal of nail matrix [...] Description 11/28/2024 9:30 AM EDT Medication Management [facility] CH[facility] MED & PEDS 505 [place] [address] Cristal Muhammad, PharmD 230 [place] [address] 12/05/2024 8:45 AM EDT Office Visit [facility] MED & PEDS 505 [place] [address] Joyce Tapia MD 505 [place] [address] 12/25/2024 9:45 AM EDT Office Visit [address] [address] 02/05/2025 9:00 AM EDT Office Visit [facility] MED & PEDS 505 [place] [address] Ayden Orellana MD 505 [place] [address] documented as of this encounter Visit Diagnoses Diagnosis Status post surgical removal of nail matrix of toe of left foot documented in this encounter Care Teams Keyboard Instrument Repairer Relationship Specialty Start Date End Date Joyce Tapia MD [address] [place] [address] PCP - General Family Medicine 06/19/12 documented as of this encounter
--- OUTSIDE RECORDS SUMMARY | 2024-11-20 19:28 | XMS_ITS | Encounter Summary ---
Author Organization [employer] Address 75 [facility] 7t [place] [address] Care Team Providers Care Greenhouse Laborer Name Role Phone Joyce Tapia MD Primary Care Provider [phone] Reason for Visit * Reason Onset Date Comments Med Refill 06/05/2024 Encounter Details Date Type Department Care Team (Late st Contact Info) Description 06/05/2024 Refill [facility] MEDICINE 230 [place] [address] Joyce Tapia MD [address] [place], [place] [phone] Status post surgical removal of nail matrix [...] Description 11/28/2024 9:30 AM EDT Medication Management [facility] MED & PEDS 505 [place] [address] Cristal Muhammad PharmD 230 [place] [address] 12/05/2024 8:45 AM EDT Office Visit [facility] MED & PEDS 505 [place] [address] Joyce Tapia MD 505 [place] [address] 12/25/2024 9:45 AM EDT Office Visit [facility] MEDICINE 230 [place] [address] 02/05/2025 9:00 AM EDT Office Visit [facility] MED & PEDS 505 [place] [address] Ayden Orellana MD 505 [place] [address] documented as of this encounter Visit Diagnoses Diagnosis Status post surgical removal of nail matrix of toe of left foot documented in this encounter Care Teams Greenhouse Laborer Relationship Specialty Start Date End Date Joyce Tapia MD [address] [place] [address] PCP - General Family Medicine 06/19/12 documented as of this encounter
--- OUTSIDE RECORDS SUMMARY | 2024-11-20 19:28 | XMS_ITS | Encounter Summary ---
Author Organization [employer] Address 75 [facility] 7t [place] [address] Care Team Providers Care Folded Towel Machine Operator Name Role Phone Joyce Tapia MD Primary Care Provider [phone] Reason for Visit * Reason Onset Date Comments Med Refill 02/28/2024 Encounter Details Date Type Department Care Team ([facility] st Contact Info) Description 02/28/2024 Telephone [facility] MEDICINE 230 [place] [address] Joyce Tapia MD [address] [place], [place] [phone] Med Refill Social History Tobacco Use Types [...] sent to: [facility] - [address] documented in this encounter Plan of Treatment Upcoming Encounters Date Type Department Care Team ([facility] st Contact Info) Description 11/28/2024 9:30 AM EDT Medication Management [facility] MED & PEDS 505 [place] [address] Cristal Muhammad, PharmD 230 [place] [address] 12/05/2024 8:45 AM EDT Office Visit [facility] MED & PEDS 505 [place] [address] Joyce Tapia MD 505 [place] [address] 12/25/2024 9:45 AM EDT Office Visit [facility] MEDICINE 230 [place] [address] 02/05/2025 9:00 AM EDT Office Visit [facility] MED & PEDS 505 [place] [address] Ayden Orellana MD 505 [place] [address] documented as of this encounter Visit Diagnoses Not on filedocumented in this encounter Care Teams Folded Towel Machine Operator Relationship Specialty Start Date End Date Joyce Tapia MD [address] [place] [address] PCP - General Family Medicine 06/19/12 documented as of this encounter
--- OUTSIDE RECORDS SUMMARY | 2024-11-20 19:28 | XMS_ITS | Encounter Summary ---
Author Organization [employer] Address 75 [facility] 7[place] [address] Care Team Providers Care Harness Tier Name Role Phone Joyce Tapia MD Primary Care Provider Reason for Visit * Reason Onset Date Comments Med Refill 05/30/2023 Encounter Details Date Type Department Care Team ([facility] st Contact Info) Description 05/30/2023 Telephone [facility] MEDICINE 230 [place], [place] [phone] Joyce Tapia MD [address] [place] [address] Med Refill Social History Tobacco Use Types [...] oxyCODONE (Roxicodone) 5 MG immediate release tablet [facility] - [place], [place] - [address] documented in this encounter Plan of Treatment Upcoming Encounters Date Type Department Care Team (Late st Contact Info) Description 11/28/2024 9:30 AM EDT Medication Management [facility] MED & PEDS 505 [place] [address] Cristal Muhammad, BobD 230 [place] [address] 12/05/2024 8:45 AM EDT Office Visit [facility] MED & PEDS 505 [place] [address] Joyce Tapia MD 505 [place] [address] 12/25/2024 9:45 AM EDT Office Visit [facility] MEDICINE 230 [place] [address] 02/05/2025 9:00 AM EDT Office Visit [facility] MED & PEDS 505 [place] [address] Ayden Orellana MD 505 [place] [address] documented as of this encounter Visit Diagnoses Not on filedocumented in this encounter Care Teams Harness Tier Relationship Specialty Start Date End Date Joyce Tapia MD [address] [place] [address] PCP - General Family Medicine 06/19/12 documented as of this encounter
--- OUTSIDE RECORDS SUMMARY | 2024-11-20 19:28 | XMS_ITS | Encounter Summary ---
Author Organization [employer] Address 75 [facility] 7t [place] [address] Care Team Providers Care Cruise Consultant Name Role Phone Joyce Tapia MD Primary Care Provider [phone] Reason for Visit * Reason Comments Med Refill Encounter Details Date Type Department Care Team (Late st Contact Info) Description 10/03/2023 Refill [facility] MED & PEDS 505 [place] [address] Joyce Tapia MD 505 [place] [address] Arthropathy Social History Tobacco Use Types Packs/Day [...] Description 11/28/2024 9:30 AM EDT Medication Management [facility] MED & PEDS 505 [place] [address] Cristal Muhammad, PharmD 230 [place] [address] 12/05/2024 8:45 AM EDT Office Visit [facility] MED & PEDS 505 [place] [address] Joyce Tapia MD 505 [place] [address] 12/25/2024 9:45 AM EDT Office Visit [address] [address] 02/05/2025 9:00 AM EDT Office Visit [facility] MED & PEDS 505 [place] [address] Ayden Orellana MD 505 [place] [address] documented as of this encounter Visit Diagnoses Diagnosis Arthropathy Unspecified arthropathy, site unspecified documented in this encounter Care Teams Cruise Consultant Relationship Specialty Start Date End Date Joyce Tapia MD [address] [place] [address] PCP - General Family Medicine 06/19/12 documented as of this encounter
--- OUTSIDE RECORDS SUMMARY | 2024-11-20 19:28 | XMS_ITS | Encounter Summary ---
Author Organization [employer] Address 75 [facility] 7t [place] [address] Care Team Providers Care Water Meter Reader Name Role Phone Joyce Tapia MD Primary Care Provider [phone] Encounter Details Date Type Department Care Team (Late st Contact Info) Description 05/24/2023 Abstract [facility] MEDICINE 230 [place] [address] Zohra Benavidez Social History Tobacco Use Types [...] Description 11/28/2024 9:30 AM EDT Medication Management [facility] MED & PEDS 505 [place] [address] Cristal Muhammad, PharmD 230 [place] [address] 12/05/2024 8:45 AM EDT Office Visit [facility] MED & PEDS 505 [place] [address] Joyce Tapia MD 505 [place] [address] 12/25/2024 9:45 AM EDT Office Visit [facility] MEDICINE 230 [place] [address] 02/05/2025 9:00 AM EDT Office Visit [facility] MED & PEDS 505 [place] [address] Ayden Orellana MD 505 [place] [address] documented as of this encounter Procedures Procedure Name Priority Date/Time Associated Diagnosis Comments COLONOSCOPY Routine 02/20/2015 documented in this encounter Results * Colonoscopy (02/20/2015) Colonoscopy Normal Normal Narrative Zohra Benavidez - 02/20/2015 Repeat in 10 year Historical Provider [facility] Final Result documented in this encounter Visit Diagnoses Not on filedocumented in this encounter Care Teams Water Meter Reader Relationship Specialty Start Date End Date Joyce Tapia MD 230 [place] [address] PCP - General Family Medicine 06/19/12 documented as of this encounter
--- OUTSIDE RECORDS SUMMARY | 2024-11-20 19:28 | XMS_ITS | Encounter Summary ---
Author Organization [employer] Address [address] [place] [address] 7 [place] [address] Care Team Providers Care Pediatric Sports Medicine Specialist Name Role Phone Joyce Tapia MD Primary Care Provider [phone] Reason for Visit * Reason Comments Med Refill Encounter Details Date Type Department Care Team (Late st Contact Info) Description 10/11/2023 Refill [facility] MEDICINE 230 [place], [place] [phone] Ayden Orellana MD 505 [place] [address] Status post surgical removal of nail matrix [...] Description 11/28/2024 9:30 AM EDT Medication Management [facility] CHC MED & PEDS 505 [place] [address] Cristal Muhammad, PharmD 230 [place] [address] 12/05/2024 8:45 AM EDT Office Visit [facility] MED & PEDS 505 [place] [address] Joyce Tapia MD 505 [place] [address] 12/25/2024 9:45 AM EDT Office Visit [facility] MEDICINE [address] [place] [address] 02/05/2025 9:00 AM EDT Office Visit [facility] MED & PEDS 505 [place] [address] Ayden Orellana MD 505 [place] [address] documented as of this encounter Visit Diagnoses Diagnosis Status post surgical removal of nail matrix of toe of left foot documented in this encounter Care Teams Pediatric Sports Medicine Specialist Relationship Specialty Start Date End Date Joyce Tapia MD [address] [place] [address] PCP - General Family Medicine 06/19/12 documented as of this encounter
--- OUTSIDE RECORDS SUMMARY | 2024-11-20 19:28 | XMS_ITS | Encounter Summary ---
Author Organization [employer] Address 75 [facility] 7t [place] [address] Care Team Providers Care Job Placement Counselor Name Role Phone Joyce Tapia MD Primary Care Provider [phone] Reason for Visit * Reason Onset Date Comments Med Refill 09/17/2024 Encounter Details Date Type Department Care Team ([facility] st Contact Info) Description 09/17/2024 Refill [facility] MED & PEDS 505 [place], [place] [phone] Emerson Keith MD 505 [place] [address] Status post surgical removal of nail matrix [...] [facility] 505 [place] [address] Cristal Muhammad PharmD 230 [place] [address] 12/05/2024 8:45 AM EDT Office Visit [facility] MED & PEDS 505 [place] [address] Joyce Tapia MD 505 [place] [address] 12/25/2024 9:45 AM EDT Office Visit [facility] MEDICINE 230 [place] [address] 02/05/2025 9:00 AM EDT Office Visit [facility] MED & PEDS 505 [place] [address] Ayden Orellana MD 505 [place] [address] documented as of this encounter Visit Diagnoses Diagnosis Status post surgical removal of nail matrix of toe of left foot documented in this encounter Additional Health Concerns Assessment Noted Time PHQ-9 Depression Total Score: 7 09/15/19 25 9:02 AM EDT documented as of this encounter Care Teams Job Placement Counselor Relationship Specialty Start Date End Date Joyce Tapia MD 230 [place] [address] PCP - General Family Medicine 06/19/12 documented as of this encounter
--- OUTSIDE RECORDS SUMMARY | 2024-11-20 19:28 | XMS_ITS | Encounter Summary ---
Author Organization [employer] Address 75 [facility] 7t [place] [address] Care Team Providers Care Community Health Counselor Name Role Phone Joyce Tapia MD Primary Care Provider [phone] Reason for Visit * Reason Comments Med Refill Encounter Details Date Type Department Care Team (Late Contact Info) Description 10/25/2022 Refill [facility] MED & PEDS 505 [place], [place] [phone] Jenny Schmidt MD 505 [place] [address] Status post surgical removal of nail matrix [...] Encounters Date Type Department Care Team ([facility] Contact Info) Description 11/28/2024 9:30 AM EDT Medication Management [facility]C MED & PEDS 505 [place] [address] Cristal Muhammad PharmD 230 [place] [address] 12/05/2024 8:45 AM EDT Office Visit [facility] MED & PEDS 505 [place] [address] Joyce Tapia MD 505 [place] [address] 12/25/2024 9:45 AM EDT Office Visit [facility] MEDICINE 230 [place] [address] 02/05/2025 9:00 AM EDT Office Visit [facility] MED & PEDS [address] [place] [address] Ayden Orellana MD 505 [place] [address] documented as of this encounter Visit Diagnoses Diagnosis Status post surgical removal of nail matrix of toe of left foot documented in this encounter Care Teams Community Health Counselor Relationship Specialty Start Date End Date Joyce Tapia MD [address] [place] [address] PCP - General Family Medicine 06/19/12 documented as of this encounter
--- OUTSIDE RECORDS SUMMARY | 2024-11-20 19:28 | XMS_ITS | Encounter Summary ---
Author Organization [employer] Address [address] [facility] 7t [place] [address] Care Team Providers Care Mortgage Counselor Name Role Phone Joyce Tapia MD Primary Care Provider [phone] Reason for Visit * Reason Onset Date Comments Med Refill 10/25/2024 Encounter Details Date Type Department Care Team ([facility] st Contact Info) Description 10/25/2024 Refill [facility] MED & PEDS [address] [place] [address] Joyce Tapia MD 505 [place] [address] Social History Tobacco Use Types Packs/Day Years [...] [facility] [place] [address] [place] [address] Cristal Muhammad, PharmD [address] [place] [address] 12/05/2024 8:45 AM EDT Office Visit [facility] 505 [place] [address] Joyce Tapia MD 505 [place] [address] 12/25/2024 9:45 AM EDT Office Visit [facility] MEDICINE 230 [place] [address] 02/05/2025 9:00 AM EDT Office Visit [facility] [address] [place] [address] Ayden Orellana MD 505 [place] [address] documented as of this encounter Visit Diagnoses Not on filedocumented in this encounter Additional Health Concerns Assessment Noted Time PHQ-9 Depression Total Score: 7 03/14/20 25 9:02 AM EDT documented as of this encounter Care Teams Mortgage Counselor Relationship Specialty Start Date End Date Joyce Tapia MD [address] [place] [address] PCP - General Family Medicine 06/19/12 documented as of this encounter
--- OUTSIDE RECORDS SUMMARY | 2024-11-20 19:28 | XMS_ITS | Encounter Summary ---
Author Organization [employer] Address [address] [facility] 7t [place] [address] Care Team Providers Care Small Products Assembler Name Role Phone Joyce Tapia MD Primary Care Provider [phone] Reason for Visit * Reason Onset Date Comments Med Refill 09/26/2024 Encounter Details Date Type Department Care Team ([facility] st Contact Info) Description 09/26/2024 Refill [facility] CH[facility] MED & PEDS [address] [place], [place] [phone] Joyce Tapia MD 505 [place] [address] Status post surgical removal of nail matrix [...] Description 11/28/2024 9:30 AM EDT Medication Management [facility] MED & PEDS [address] [place] [address] Cristal Muhammad, PharmD 230 [place] [address] 12/05/2024 8:45 AM EDT Office Visit [facility] MED & PEDS [address] [place] [address] Joyce Tapia MD 505 [place] [address] 12/25/2024 9:45 AM EDT Office Visit [facility] MEDICINE 230 [place] [address] 02/05/2025 9:00 AM EDT Office Visit [facility] MED & PEDS 505 [place] [address] Ayden Orellana MD 505 [place] [address] documented as of this encounter Visit Diagnoses Diagnosis Status post surgical removal of nail matrix of toe of left foot documented in this encounter Additional Health Concerns Assessment Noted Time PHQ-9 Depression Total Score: 7 09/15/19 25 9:02 AM EDT documented as of this encounter Care Teams Small Products Assembler Relationship Specialty Start Date End Date Joyce Tapia MD 230 [place] [address] PCP - General Family Medicine 06/19/12 documented as of this encounter
--- OUTSIDE RECORDS SUMMARY | 2024-11-20 19:28 | XMS_ITS | Encounter Summary ---
Author Organization [employer] Address [address] [facility] 7t [place] [address] Care Team Providers Care Gear Shaper Set Up Operator Name Role Phone Joyce Tapia MD Primary Care Provider [phone] Reason for Visit * Reason Onset Date Comments Med Refill 05/21/2024 Encounter Details Date Type Department Care Team ([facility] st Contact Info) Description 05/21/2024 Refill [facility] CHC MED & PEDS 505 [place] [address] Joyce Tapia MD 505 [place] [address] Social History Tobacco Use Types Packs/Day Years [...] Description 11/28/2024 9:30 AM EDT Medication Management [facility] CHC MED & PEDS 505 [place] [address] Cristal Muhammad PharmD 230 [place] [address] 12/05/2024 8:45 AM EDT Office Visit [facility] MED & PEDS 505 [place] [address] Joyce Tapia MD 505 [place] [address] 12/25/2024 9:45 AM EDT Office Visit [facility] MEDICINE 230 [place] [address] 02/05/2025 9:00 AM EDT Office Visit [facility] MED & PEDS 505 [place] [address] Ayden Orellana MD 505 [place] [address] documented as of this encounter Visit Diagnoses Not on filedocumented in this encounter Care Teams Gear Shaper Set Up Operator Relationship Specialty Start Date End Date Joyce Tapia MD 230 [place] [address] PCP - General Family Medicine 06/19/12 documented as of this encounter
--- OUTSIDE RECORDS SUMMARY | 2024-11-20 19:28 | XMS_ITS | Encounter Summary ---
Author Organization [employer] Address [address] [facility] 7t [place] [address] Care Team Providers Care Curator Of Education Name Role Phone Joyce Tapia MD Primary Care Provider [phone] Reason for Visit * Reason Onset Date Comments Med Refill 04/05/2024 Encounter Details Date Type Department Care Team ([facility] st Contact Info) Description 04/05/2024 Refill [facility] CHC MED & PEDS 505 [place], [place] [phone] Joyce Tapia MD 505 [place] [address] Status post surgical removal of nail matrix [...] [facility] 505 [place] [address] Cristal Muhammad PharmD 230 [place] [address] 12/05/2024 8:45 AM EDT Office Visit [facility] MED & PEDS 505 [place] [address] Joyce Tapia MD 505 [place] [address] 12/25/2024 9:45 AM EDT Office Visit [facility] MEDICINE 230 [place] [address] 02/05/2025 9:00 AM EDT Office Visit [facility] MED & PEDS 505 [place] [address] Ayden Orellana MD 505 [place] [address] documented as of this encounter Visit Diagnoses Diagnosis Status post surgical removal of nail matrix of toe of left foot documented in this encounter Care Teams Curator Of Education Relationship Specialty Start Date End Date Joyce Tapia MD 230 [place] [address] PCP - General Family Medicine 06/19/12 documented as of this encounter
--- OUTSIDE RECORDS SUMMARY | 2024-11-20 19:28 | XMS_ITS | Encounter Summary ---
Author Organization [employer] Address [address] [facility] 7t [place] [address] Care Team Providers Care Global Mobility Specialist Name Role Phone Joyce Tapia MD Primary Care Provider [phone] Reason for Visit * Reason Onset Date Comments Med Refill 07/27/2024 Encounter Details Date Type Department Care Team (Late st Contact Info) Description 07/27/2024 Refill [facility] MEDICINE 230 [place] [address] Emerson Keith MD 505 [place], [place] [phone] Status post surgical removal of nail matrix [...] Description 11/28/2024 9:30 AM EDT Medication Management [facility] MED & PEDS [address] [place] [address] Cristal Muhammad PharmD 230 [place] [address] 12/05/2024 8:45 AM EDT Office Visit [facility] MED & PEDS [address] [place] [address] Joyce Tapia MD 505 [place] [address] 12/25/2024 9:45 AM EDT Office Visit [facility] MEDICINE 230 [place] [address] 02/05/2025 9:00 AM EDT Office Visit [facility] MED & PEDS [address] [place] [address] Ayden Orellana MD 505 [place] [address] documented as of this encounter Visit Diagnoses Diagnosis Status post surgical removal of nail matrix of toe of left foot documented in this encounter Care Teams Global Mobility Specialist Relationship Specialty Start Date End Date Joyce Tapia MD 230 [place] [address] PCP - General Family Medicine 06/19/12 documented as of this encounter
--- OUTSIDE RECORDS SUMMARY | 2024-11-20 19:28 | XMS_ITS | Encounter Summary ---
Author Organization [employer] Address [address] [facility] 7t [place] [address] Care Team Providers Care Drapery Cutter Name Role Phone Joyce Tapia MD Primary Care Provider [phone] Encounter Details Date Type Department Care Team (Late Contact Info) Description 09/27/2022 Orders Only [facility] MEDICINE 230 [place], [place] [phone] Comfort Estraad LPN Social History Tobacco Use Types Packs/Day [...] Description 11/28/2024 9:30 AM EDT Medication Management [facility] CHC MED & PEDS [address] [place] [address] Cristal Muhammad, PharmD 230 [place], [place] [phone] 12/05/2024 8:45 AM EDT Office Visit [facility] MED & PEDS 505 [place] [address] Joyce Tapia MD 505 [place] [address] 12/25/2024 9:45 AM EDT Office Visit [facility] MEDICINE 230 [place] [address] 02/05/2025 9:00 AM EDT Office Visit [facility] MED & PEDS 505 [place] [address] Ayden Orellana MD 505 [place] [address] documented as of this encounter Visit Diagnoses Not on filedocumented in this encounter Care Teams Drapery Cutter Relationship Specialty Start Date End Date Joyce Tapia MD [address] [place] [address] PCP - General Family Medicine 06/19/12 documented as of this encounter
--- OUTSIDE RECORDS SUMMARY | 2024-11-20 19:28 | XMS_ITS | Encounter Summary ---
Author Organization [employer] Address [address] [facility] 7[address] [place] [address] Care Team Providers Care Principal Architect Name Role Phone Joyce Tapia MD Primary Care Provider [phone] Reason for Visit * Reason Comments Med Refill Encounter Details Date Type Department Care Team (Late st Contact Info) Description 06/06/2023 Refill [facility] MED & PEDS 505 [place], [place] [phone] Ev Lewis, ANP 230 [place] [address] Status post surgical removal of nail matrix [...] Description 11/28/2024 9:30 AM EDT Medication Management [facility] MED & PEDS 505 [place] [address] Cristal Muhammad, PharmD 230 [place], [place] [phone] 12/05/2024 8:45 AM EDT Office Visit [facility] MED & PEDS 505 [place] [address] Joyce Tapia MD 505 [place] [address] 12/25/2024 9:45 AM EDT Office Visit [facility] MEDICINE [address] [place] [address] 02/05/2025 9:00 AM EDT Office Visit [facility] MED & PEDS 505 [place] [address] Ayden Orellana MD 505 [place] [address] documented as of this encounter Visit Diagnoses Diagnosis Status post surgical removal of nail matrix of toe of left foot documented in this encounter Care Teams Principal Architect Relationship Specialty Start Date End Date Joyce Tapia MD [address] [place] [address] PCP - General Family Medicine 06/19/12 documented as of this encounter
--- OUTSIDE RECORDS SUMMARY | 2024-11-20 19:28 | XMS_ITS | Encounter Summary ---
Author Organization [employer] Address [address] [facility] 7t [place] [address] Care Team Providers Care Franchise Sales Manager Name Role Phone Joyce Tapia MD Primary Care Provider Reason for Visit * Reason Onset Date Comments Med Refill 08/01/2024 Encounter Details Date Type Department Care Team (Late st Contact Info) Description 08/01/2024 Refill [facility] MEDICINE 230 [place] [address] Emerson Keith MD 505 [place], [place] [phone] Status post surgical removal of nail matrix [...] 11/28/2024 9:30 AM EDT Medication Management [facility] MED & PEDS 505 [place] [address] Cristal Muhammad PharmD 230 [place] [address] 12/05/2024 8:45 AM EDT Office Visit [facility] MED & PEDS 505 [place] [address] Joyce Tapia MD 505 [place] [address] 12/25/2024 9:45 AM EDT Office Visit [facility] MEDICINE 230 [place] [address] 02/05/2025 9:00 AM EDT Office Visit [facility] MED & PEDS 505 [place] [address] Ayden Orellana MD 505 [place] [address] documented as of this encounter Visit Diagnoses Diagnosis Status post surgical removal of nail matrix of toe of left foot documented in this encounter Care Teams Franchise Sales Manager Relationship Specialty Start Date End Date Joyce Tapia MD 230 [place] [address] PCP - General Family Medicine 06/19/12 documented as of this encounter
--- OUTSIDE RECORDS SUMMARY | 2024-11-20 19:28 | XMS_ITS | Encounter Summary ---
Author Organization [employer] Address [address] [facility] 7t [place] [address] Care Team Providers Care Media Reporter Name Role Phone Joyce Tapia MD Primary Care Provider [phone] Reason for Visit * Reason Onset Date Comments Med Refill 10/24/2024 Encounter Details Date Type Department Care Team (Late st Contact Info) Description 10/24/2024 Refill [facility] MEDICINE 230 [place] [address] Ayden Orellana MD 505 [place] [address] Status post surgical removal of nail matrix [...] [facility] MED & PEDS 505 [place] [address] Cristal Muhammad, PharmD 230 [place] [address] 12/05/2024 8:45 AM EDT Office Visit [facility] MED & PEDS 505 [place] [address] Joyce Tapia MD 505 [place] [address] 12/25/2024 9:45 AM EDT Office Visit [facility] MEDICINE 230 [place] [address] 02/05/2025 9:00 AM EDT Office Visit [facility] MED & PEDS 505 [place] [address] Ayden Orellana MD 505 [place] [address] documented as of this encounter Visit Diagnoses Diagnosis Status post surgical removal of nail matrix of toe of left foot documented in this encounter Additional Health Concerns Assessment Noted Time PHQ-9 Depression Total Score: 7 09/15/19 25 9:02 AM EDT documented as of this encounter Care Teams Media Reporter Relationship Specialty Start Date End Date Joyce Tapia MD 230 [place] [address] PCP - General Family Medicine 06/19/12 documented as of this encounter
--- OUTSIDE RECORDS SUMMARY | 2024-11-20 19:28 | XMS_ITS | Encounter Summary ---
Author Organization [employer] Address [address] [place] [address] 7t [place] [address] Care Team Providers Care Hand Profiler Name Role Phone Joyce Tapia MD Primary Care Provider [phone] Reason for Visit * Reason Comments Med Refill Encounter Details Date Type Department Care Team (Late st Contact Info) Description 06/12/2023 Refill [facility] MED & PEDS [address] [place], [place] [phone] Christy Ray MD 505 [place] [address] Muscle spasm Social History Tobacco Use Types [...] [facility] MED & PEDS [address] [place] [address] Cristal Muhammad, PharmD 230 [place] [address] 12/05/2024 8:45 AM EDT Office Visit [facility] MED & PEDS [address] [place] [address] Joyce Tapia MD 505 [place] [address] 12/25/2024 9:45 AM EDT Office Visit [facility] MEDICINE 230 [place] [address] 02/05/2025 9:00 AM EDT Office Visit [facility] MED & PEDS [address] [place] [address] Ayden Orellana MD 505 [place] [address] documented as of this encounter Visit Diagnoses Diagnosis Muscle spasm Spasm of muscle documented in this encounter Care Teams Hand Profiler Relationship Specialty Start Date End Date Joyce Tapia MD [address] [place] [address] PCP - General Family Medicine 06/19/12 documented as of this encounter
--- OUTSIDE RECORDS SUMMARY | 2024-11-20 19:28 | XMS_ITS | Encounter Summary ---
Author Organization [employer] Address [address] [facility] 7t [place] [address] Care Team Providers Care Inspector Advanced Composite Name Role Phone Joyce Tapia MD Primary Care Provider [phone] Reason for Visit * Reason Onset Date Comments Med Refill 06/25/2024 Encounter Details Date Type Department Care Team (Late st Contact Info) Description 06/25/2024 Refill [facility] MEDICINE [address] [facility] [place] [address] Joyce Tapia MD [address] [place], [place] [phone] Status post surgical removal of nail matrix [...] [facility] MED & PEDS 505 [place] [address] Cristal Muhammad PharmD 230 [place] [address] 12/05/2024 8:45 AM EDT Office Visit [facility] PED[facility] 505 [place] [address] Joyce Tapia MD 505 [place] [address] 12/25/2024 9:45 AM EDT Office Visit [facility] MEDICINE 230 [place] [address] 02/05/2025 9:00 AM EDT Office Visit [facility] & PEDS 505 [place] [address] Ayden Orellana MD 505 [place] [address] documented as of this encounter Visit Diagnoses Diagnosis Status post surgical removal of nail matrix of toe of left foot documented in this encounter Care Teams Inspector Advanced Composite Relationship Specialty Start Date End Date Joyce Tapia MD [address] [place] [address] PCP - General Family Medicine 06/19/12 documented as of this encounter
[2024-11-20] MEDS: Bacitracin Oint 0.9 GM PACKET 1 APPL TOPICAL (19:59)
[2024-11-20] MEDS: Lidocaine HCl 1 % 20 ML VIAL INFILTRATI (19:59)
[2024-11-20] MEDS: Doxycycline Monohydrate 100 MG CAPSULE PO (19:59)
[2024-11-20 20:02] VITALS: BP 98/67; PULSE 70; RESP 16; TEMP 36.6; O2SAT 94
[2024-11-20 20:03] VITALS: BP 98/67; PULSE 70; RESP 16; TEMP 36.6; O2SAT 94
== END 2024-11-20 20:04 | disposition home or self-care (01) ==
PROVIDERS: Emergency Provider Emergency Medicine; PCP Student in an Organized Health Care Education/Training Program
DX: N76.4 Abscess of vulva (principal)
CPT/HCPCS: 10060; 99282; 99284; J2003

== ENCOUNTER 2024-11-30 13:38 | Emergency (ER) | payer OTHER, SELFPAY ==
--- NOTE | ~2024-11-30 | US_ITS ---
EXAMINATION: US TRIPLEX LOWER EXTREMITY, BILATERAL CLINICAL INFORMATION: Bilateral lower extremity swelling. COMPARISON: None available. TECHNIQUE: Color-flow triplex imaging with spectral analysis and compression Doppler were performed on the bilateral lower extremities. FINDINGS: Respiratory variation, normal compression and augmented flow are noted throughout the bilateral lower extremities. The visualized common femoral vein, superficial femoral vein, profunda femoral vein, popliteal vein and midcalf peroneal and posterior tibial venous segments show no evidence of deep venous thrombosis bilaterally. There is no right Freeman's cyst. There is a small Freeman's cyst on the left measuring 1.5 x 1.1 x 1.3 cm. US/US venous duplex LE BI IMPRESSION: 1. No evidence of deep venous thrombosis involving the bilateral lower extremities. 2. Small left-sided Freeman's cyst. Electronically signed by: Bakari De Santiago MD 11/30/2024 03:28 PM EDT
[2024-11-30 13:50] VITALS: BP 88/47; PULSE 76; RESP 18; TEMP 36.4; O2SAT 95; BMI 28.0
--- NOTE | 2024-11-30 13:57 | ED.GENADULT ---
HPI - General Adult General Chief complaint: General Medical Stated complaint: L Ankle Pain L Leg Swelling No Injury Time Seen by Provider: 11/30/24 14:17 History of Present Illness HPI narrative: Patient is a 64-year-old female presents today with having bilateral leg swelling pain to the calf and left knee area. There is no trauma. Patient had generalized malaise weakness. Also have some mild coughing. Has a long history of smoking. Quit now is on Chantix. Patient denies any chest pain. Denies any diaphoresis she is vaccinated for COVID. No fever no chills. No chest pain. Patient is from home. Related Data Home Medications ?Medication ?Instructions ?Recorded ?Confirmed hydrochlorothiazide 12.5 mg capsule 12.5 mg PO DAILY 05/09/20 07/25/24 hydroxyzine HCl 25 mg tablet 50 mg PO BEDTIME 06/04/20 07/25/24 sertraline 100 mg tablet 1 tab PO BEDTIME 10/20/21 07/25/24 tizanidine 4 mg tablet 1 tab PO BEDTIME PRN Pain 10/20/21 07/25/24 cyanocobalamin (vitamin B-12) 1,000 mcg PO QAM 06/03/22 07/25/24 1,000 mcg tablet metformin 500 mg tablet,extended 500 mg PO BID 06/03/22 07/25/24 release 24 hr albuterol sulfate 90 mcg/actuation 2 puff inhalation Q4-6H PRN 08/25/23 07/25/24 aerosol inhaler Shortness Of Breath Or Wheezing oxycodone 5 mg tablet 5 mg PO Q6H PRN severe pain 09/27/23 07/25/24 pramipexole 0.5 mg tablet 0.5 mg PO TID 09/27/23 07/25/24 zolpidem 5 mg tablet 5 mg PO BEDTIME PRN insomnia 09/27/23 07/25/24 ferrous sulfate 325 mg (65 mg 325 mg PO QAM 10/27/23 07/25/24 iron) tablet ondansetron HCl 4 mg tablet 4 mg PO Q12H PRN nausea/vomiting 02/03/24 07/25/24 varenicline tartrate 1 mg tablet 1 mg PO BID 04/24/24 07/25/24 Previous Rx's ?Medication ?Instructions ?Recorded cholecalciferol (vitamin D3) 50 50 mcg PO DAILY #30 caps 12/15/20 mcg (2,000 unit) capsule fluticasone propionate 50 2 spray intranasal DAILY #16 grams 06/21/21 mcg/actuation nasal spray,suspension (Flonase Allergy Relief) blood-glucose meter (FreeStyle #1 ea 08/21/21 Lite Meter kit) blood sugar diagnostic (FreeStyle #150 strips 03/30/22 Lite Strips) thiamine HCl (vitamin B1) 100 mg 100 mg PO DAILY #90 tabs 06/07/22 tablet lidocaine 5 % topical patch 1 patch topical DAILY #15 ea 11/10/22 (Lidoderm) cyclobenzaprine 10 mg tablet 10 mg PO Q8H #20 tabs 01/07/23 meclizine 25 mg tablet 25 mg PO TID PRN dizziness #20 tabs 02/11/23 albuterol sulfate 1.25 mg/3 mL 1.25 mg (3 mL) inhalation QID PRN 06/11/23 solution for nebulization shortness of breath or wheezing #90 mL diclofenac sodium 1 % topical gel 2 g topical BID PRN pain (scale 07/18/23 (Aleve (diclofenac)) score 4-6) #100 grams prednisone 20 mg tablet 40 mg (2 x 20 mg) PO DAILY 5 days 06/03/24 #10 tabs barium sulfate 2 % (w/v) oral 450 ml PO ONCE #900 mL 07/31/24 suspension (Readi-Cat 2) pantoprazole 40 mg tablet,delayed 40 mg PO DAILY #60 tabs 08/22/24 release oxycodone-acetaminophen 5 mg-325 1 tab PO Q6H PRN Pain #5 tabs 10/01/24 mg tablet doxycycline hyclate 100 mg capsule 100 mg PO BID 5 days #10 caps 11/20/24 Allergies Allergy/AdvReac Type Severity Reaction Status Date / Time prochlorperazine Allergy Severe Seizure Verified 11/30/24 13:53 [From Compazine] Penicillins Allergy Intermediate HIVES Verified 11/30/24 13:53 sulfamethoxazole Allergy Intermediate BLISTERS- Verified 11/30/24 13:53 [From BACTRIM] DELGADO - NERVE ENDINGS IN HAND/ERYTHEMA MULTIFORM trimethoprim [From BACTRIM] Allergy Intermediate BLISTERS- Verified 11/30/24 13:53 DELGADO - NERVE ENDINGS IN HAND/ERYTHEMA MULTIFORM latex [Latex] Allergy Mild RASH Verified 11/30/24 13:53 transparent dressing AdvReac Severe Redness of Verified 11/30/24 13:53 [Tegaderm] Skin theophylline AdvReac Intermediate TACHYCARDIA Verified 11/30/24 13:53 Review of Systems Review of Systems: Positive coughing congestion upper respiratory symptoms Yes all other systems are reviewed and are negative [facility] Past Medical History Attestation statement: The following information was validated with the patient. Medical History Abscess Abdominal pain Infection of skin due to methicillin resistant Staphylococcus aureus (MRSA) Numbness of right hand COVID-19 Sebaceous cyst Cubital tunnel syndrome on left Contusion of right ankle Numbness and tingling in left hand Left hand pain Stiffness of left hand joint Emesis Overweight (BMI 25.0-29.9) Borderline diabetes Dyslipidemia Non-toxic multinodular goiter Diabetes type 2, controlled History of restless legs syndrome Anxiety Depression High cholesterol Asthma DVT (deep venous thrombosis) GERD (gastroesophageal reflux disease) Anastomotic ulcer Surgical History Hx of colonoscopy H/O removal of cyst (02/03/23) History of removal of cyst (07/28/22) Hx of cholecystectomy History of surgery History of surgery on left wrist Hx of elbow surgery History of excision of epidermal inclusion cyst (03/23/22) Hx of excision of epidermal inclusion cyst (12/25/21) History of excision of mass (10/26/21) S/P trigger finger release History of tooth extraction Hx of hand surgery Hx of esophagogastroduodenoscopy S/P gastric bypass History of hysterectomy Family History Family History Mother Diabetes mellitus CHF (congestive heart failure) Kidney failure Cervical cancer Brother No problems noted. Brother No problems noted. Social History Social History Household Members: Spouse Are you a primary physician locums urgent care to a significant other at home: No Do you presently have visiting nurse or other home services: No Unable to assess alcohol history related to: Unknown Alcohol intake: former Patient Tobacco Use Status: Former Tobacco user Tobacco use type: Cigarette Cigarette Packs Per Day: 0 Cigarettes Per Day: 1 Years Smoked: 30 Advance Directives: Yes Advance Directives Information Provided: Yes Advance Directives on File: No Advance Directives Date on File: 03/16/24 Do you have a plan to hurt others: No Plan Current occupational status: employed 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 Oriented X3. No acute distress. Eyes: Pupils equal, round and reactive to light. ENT: Pharynx normal. Neck: Normal inspection. Neck supple. No lymph nodes noted. No crepitus CVS: Normal heart rate and rhythm. Pulses normal. Normal S1 and S2 Respiratory: No respiratory distress. Breath sounds normal. No Wheezing. No rales Abdomen: Soft and nontender. No rigidity. No distention. good BS x4 Skin: Skin warm and dry. Normal skin color. Normal skin turgor. Extremities: No lower extremity edema. Neurovascular intact to all extremities. No Lacerations. No Rash Neuro: Oriented X 3. No motor deficit. No sensory deficit. Moving all extermities. No slurred speech Course Course Course Narrative: RME: 64-year-old female with pmh of DM, GERD, anbd asthma presents to the ED for bilateral lower extremity swelling, fatigue, and lethargy. Patient is hypotensive and sleepy at triage. Patient to be brought back to the ED immediately. Labs ultrasound ordered Medications Administered Generic Name Dose Route Start Last Admin Trade Name Freq PRN Reason Stop Dose Admin Sodium Chloride 1,000 mls @ 999 mls/hr 11/30/24 15:30 11/30/24 15:25 Ns IV 11/30/24 16:30 999 mls/hr .Q1H1M CHARITY Administration Medical Decision Making Medical Decision Making MDM Narrative: Patient given IV fluids blood pressure recovered nicely. White count is normal electrolytes normal. 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 Likely the cause of patient's pain in the knee. Will suggest NSAID. Have patient follow-up on an outpatient basis no risk for blood clot Doppler study negative unlikely to have DVT. Patient is BNP is 36 there is no evidence for congestive heart failure. Currently in stable condition. Differential Diagnosis Differential Diagnoses: The differential diagnosis associated with the presentation includes Freeman's cyst versus DVT Admission/Observation Consideration of admission/observation: Escalation of care including admission/observation considered Lab Data MDM Lab Attestation statement: I reviewed the patient's lab results. 11/30/24 14:14 11/30/24 14:14 Labs: Lab Results 11/30/24 Range/Units 14:14 WBC 6.9 (4.8-10.8) X10*3/uL RBC 4.09 L (4.20-5.50) X10*6/uL Hgb 12.2 (12.0-16.0) g/dl Hct 35.3 L (37.0-47.0) % MCV 86.3 (80.0-98.0) fL MCH 29.8 (27.0-33.0) pg MCHC 34.6 (31.0-35.0) g/dl RDW 12.9 (11.0-16.0) % Plt Count 190 (160-400) X10*3/uL MPV 9.8 (9.4-12.3) fL Immature Gran % (Auto) 0.3 (0.0-0.4) % Neut % (Auto) 60.5 (45-73) % Lymph % (Auto) 29.1 (20-40) % [place] % (Auto) 6.2 (2-11) % Eos % (Auto) 3.8 (0-4) % Baso % (Auto) 0.1 (0-2) % Lymph # (Auto) 2.0 (1.2-4.9) X10*3/uL [place] # (Auto) 0.4 (0.1-1.2) X10*3/uL Eos # (Auto) 0.3 (0.0-0.4) X10*3/uL Baso # (Auto) 0.0 (0.0-0.2) X10*3/uL Abs Immat Gran (auto) 0.02 (0.00-0.03) X10*3/uL Absolute Neuts (auto) 4.2 (2.0-8.3) x10*3/uL Absolute Nucleated RBC 0.000 (0.0-0.012) X10*3/uL Nucleated RBC % (auto) 0.0 (0.0-0.2) /100WBC PT 11.3 (10.9-12.4) SEC INR 1.0 (0.9-1.1) APTT 30.6 (26.0-36.8) SEC Sodium 142 (135-145) mmol/L Potassium 3.7 (3.3-5.1) mmol/L Chloride 107 (96-108) mmol/L Carbon Dioxide 30 H (22-29) mmol/L Anion Gap 9 L (12-20) BUN 12 (9-16) mg/dL Creatinine 0.74 (0.5-1.4) mg/dL Estim Creat Clear Calc 74.8 Estimated GFR > 60 Random Glucose 110 (60-115) mg/dL Lactic Acid 0.7 (0.5-2.0) mmol/L Calcium 9.1 (8.4-10.2) mg/dL Total Bilirubin 0.3 (0.0-1.0) mg/dL AST 27 (5-31) U/L ALT 26 (0-31) U/L Alkaline Phosphatase 79 (39-117) U/L B-Natriuretic Peptide 36 (<100) pg/mL Total Protein 6.2 L (6.5-8.0) g/dL Albumin 3.9 (3.5-5.0) g/dL Ethyl Alcohol < 10 mg/dL Radiology Impression Discussion of test interpretation with radiology: I have reviewed the radiologist's reading. Chronic Conditions Status post gastric bypass history of diabetes history of hyperlipidemia history of GERD Social Determinants Patient?s care significantly limited by Social Determinants of Health including: Problems related to primary support group Discharge Plan Discharge Clinical Impression: Freeman cyst Patient Disposition: Home, Self-Care Instructions: Freeman Cyst (ED) Prescriptions: No Action cholecalciferol (vitamin D3) 50 mcg (2,000 unit) capsule 50 mcg PO DAILY Qty: 30 11RF (DME) FreeStyle Lite Strips Strip See Rx Instructions .ROUTE .COMPLEX Qty: 150 6RF Dose Instruction: USE TO TEST BLOOD SUGAR TWICE DAILY Rx Instructions: USE TO TEST BLOOD SUGAR TWICE DAILY thiamine HCl (vitamin B1) 100 mg tablet 100 mg PO DAILY Qty: 90 3RF Readi-Cat 2 2 % (w/v) suspension 450 ml PO ONCE Qty: 900 0RF Rx Instructions: Drink both bottles [address] scan pantoprazole 40 mg tablet,delayed release (DR/EC) 40 mg PO DAILY Qty: 60 6RF hydroxyzine HCl 25 mg tablet 50 mg PO BEDTIME sertraline 100 mg tablet 1 tab PO BEDTIME tizanidine 4 mg tablet 1 tab PO BEDTIME PRN (Reason: Pain) fluticasone propionate [Flonase Allergy Relief] 50 mcg/actuation spray,suspension 2 spray intranasal DAILY Qty: 16 0RF Rx Instructions: administer into each nostril metformin 500 mg tablet extended release 24 hr 500 mg PO BID albuterol sulfate 1.25 mg/3 mL solution for nebulization 1.25 mg inhalation QID PRN (Reason: shortness of breath or wheezing) Qty: 90 0RF albuterol sulfate 90 mcg/actuation Hfa Aerosol Inhaler 2 puff INHALATION Q4-6H PRN (Reason: Shortness Of Breath Or Wheezing) oxycodone-acetaminophen 5-325 mg Tablet 1 tab PO Q6H PRN (Reason: Pain) Qty: 5 0RF Rx Instructions: Partial Fill upon patient request. doxycycline hyclate 100 mg capsule 100 mg PO BID 5 Days Qty: 10 0RF lidocaine [Lidoderm] 5 % adhesive patch,medicated 1 patch topical DAILY Qty: 15 0RF Rx Instructions: leave on most painful area for up to 12 hrs cyclobenzaprine 10 mg tablet 10 mg PO Q8H Qty: 20 0RF meclizine 25 mg tablet 25 mg PO TID PRN (Reason: dizziness) Qty: 20 0RF diclofenac sodium [Aleve (diclofenac)] 1 % gel 2 g topical BID PRN (Reason: pain (scale score 4-6)) Qty: 100 0RF Rx Instructions: apply to single elbow, wrist or hand; for hand includes palm/fingers/back of hand prednisone 20 mg tablet 40 mg PO DAILY 5 Days Qty: 10 0RF hydrochlorothiazide 12.5 mg capsule 12.5 mg PO DAILY (DME) blood-glucose meter [FreeStyle Lite Meter] Kit See Rx Instructions .Route Qty: 1 0RF Rx Instructions: As directed test blood sugar two times a day cyanocobalamin (vitamin B-12) 1,000 mcg tablet 1,000 mcg PO QAM oxycodone 5 mg tablet 5 mg PO Q6H PRN (Reason: severe pain) zolpidem 5 mg tablet 5 mg PO BEDTIME PRN (Reason: insomnia) pramipexole 0.5 mg tablet 0.5 mg PO TID varenicline tartrate 1 mg tablet 1 mg PO BID ferrous sulfate 325 mg (65 mg iron) tablet 325 mg PO QAM ondansetron HCl 4 mg tablet 4 mg PO Q12H PRN (Reason: nausea/vomiting) Print Language: Amharic
--- OUTSIDE RECORDS SUMMARY | 2024-11-30 14:09 | XMS_ITS | Encounter Summary ---
Author Organization [employer] Address [address] [place] [address] Care Team Providers Care Manufacturing Engineer Chief Name Role Phone Joyce Tapia MD Primary Care Provider [phone] Reason for Visit * Reason Onset Date Comments Med Refill 09/24/2024 Encounter Details Date Type Department Care Team (Late st Contact Info) Description 09/24/2024 Refill [facility] [address] [place], [place] [id number] Joyce Tapia MD [address] [place] [address] Status post surgical removal of nail matrix [...] Care Team (Late st Contact Info) Description 12/05/2024 8:45 AM EDT Office Visit [facility] [address] [place] [address] Joyce Tapia MD [address] [place] [address] 12/25/2024 9:45 AM EDT Office Visit [facility] [address] [place] [address] 12/31/2024 9:00 AM EDT Medication Management [facility] [address] [place] [address] Cristal Muhammad, PharmD [address] [place] [address] 02/05/2025 9:00 AM EDT Office Visit [facility] [address] [place] [address] Ayden Orellana MD [address] [place] [address] documented as of this encounter Visit Diagnoses Diagnosis Status post surgical removal of nail matrix of toe of left foot documented in this encounter Additional Health Concerns Assessment Noted Time PHQ-9 Depression Total Score: 7 09/15/19 25 9:02 AM EDT documented as of this encounter Care Teams Manufacturing Engineer Chief Relationship Specialty Start Date End Date Joyce Tapia MD [address] [place] [address] PCP - General Family Medicine 06/19/12 documented as of this encounter
[2024-11-30 14:22] LABS: Basophils Percent Auto 0.1 % (0-2); Eosinophils Absolute Auto 0.3 X10*3/uL (0.0-0.4); Eosinophils Percent Auto 3.8 % (0-4); Hematocrit 35.3 % (37.0-47.0); Hemoglobin 12.2 g/dl (12.0-16.0); Imm Gran Abs Auto 0.02 X10*3/uL (0.00-0.03); Imm Gran Pct Auto 0.3 % (0.0-0.4); Lymphocytes Percent Auto 29.1 % (20-40); MANUAL DIFF FLAG NO; Mean Corpuscular HGB Conc 34.6 g/dl (31.0-35.0); Mean Corpuscular Hemoglobin 29.8 pg (27.0-33.0); Mean Corpuscular Volume 86.3 fL (80.0-98.0); Mean Platelet Volume 9.8 fL (9.4-12.3); Monocytes Absolute Auto 0.4 X10*3/uL (0.1-1.2); Monocytes Percent Auto 6.2 % (2-11); Neutrophils Absolute Auto 4.2 x10*3/uL (2.0-8.3); Neutrophils Percent Auto 60.5 % (45-73); Platelet Count 190 X10*3/uL (160-400); Red Blood Count 4.09 X10*6/uL (4.20-5.50); Red Cell Distribution Width 12.9 % (11.0-16.0); White Blood Count 6.9 X10*3/uL (4.8-10.8)
[2024-11-30 14:32] LABS: Prothrombin Time 11.3 SEC (10.9-12.4)
[2024-11-30 14:35] LABS: Partial Thromboplastin Time 30.6 SEC (26.0-36.8)
[2024-11-30 14:37] LABS: Lactic Acid 0.7 mmol/L (0.5-2.0)
[2024-11-30 14:39] LABS: Alanine Aminotransferase 26 U/L (0-31); Albumin Level 3.9 g/dL (3.5-5.0); Alkaline Phosphatase 79 U/L (39-117); Anion Gap 9 (12-20); Aspartate Amino Transferase 27 U/L (5-31); Bilirubin Total 0.3 mg/dL (0.0-1.0); Blood Urea Nitrogen 12 mg/dL (9-16); Calcium 9.1 mg/dL (8.4-10.2); Carbon Dioxide 30 mmol/L (22-29); Chloride 107 mmol/L (96-108); Creatinine Clr Calc Pharmacy 74.8; Estimated Glomerular Filt Rate > 60; Glucose Random 110 mg/dL (60-115); Potassium 3.7 mmol/L (3.3-5.1); Sodium 142 mmol/L (135-145); Total Protein 6.2 g/dL (6.5-8.0)
[2024-11-30 14:40] LABS: Ethanol < 10 mg/dL
[2024-11-30 14:44] LABS: B Type Natriuretic Peptide 36 pg/mL (<100)
[2024-11-30] MEDS: 0.9 % Sodium Chloride 1,000 ML 999 ML IV (15:25)
[2024-11-30 15:51] VITALS: BP 112/63; PULSE 57; O2SAT 95
[2024-11-30 16:33] VITALS: BP 112/63; PULSE 59; RESP 16; TEMP 36.9; O2SAT 95
[2024-11-30 17:32] LABS: Influenza A PCR NEGATIVE (Negative); Influenza B PCR NEGATIVE (Negative); Resp Syncy Virus RNA Qual PCR NEGATIVE (Negative); SARS COV2 PCR INHOUSE NEGATIVE (Negative)
== END 2024-11-30 16:35 | disposition home or self-care (01) ==
PROVIDERS: Physician Assistant; Emergency Provider Emergency Medicine Emergency Medical Services; PCP Student in an Organized Health Care Education/Training Program
DX: M71.22 Synovial cyst of popliteal space [Baker], left knee (principal); M79.89 Other specified soft tissue disorders; R53.1 Weakness; M79.605 Pain in left leg; M79.604 Pain in right leg; Z03.818 Encounter for observation for suspected exposure to other biological agents ruled out
CPT/HCPCS: 0241U; 36415; 80053; 80307; 83605; 83880; 85025; 85610; 85730; 87040; 93970; 99284

== ENCOUNTER → 2024-11-30 13:52 | Outpatient (BNV) | payer OTHER, SELFPAY | PROVIDERS: Emergency Provider Emergency Medicine Emergency Medical Services; PCP Student in an Organized Health Care Education/Training Program; Visit Provider Radiology Diagnostic Radiology | DX: M71.22 Synovial cyst of popliteal space [Baker], left knee (principal) | CPT/HCPCS: 93970 ==

== ENCOUNTER 2024-12-25 10:09 | Emergency (ER) | payer OTHER, SELFPAY ==
--- NOTE | ~2024-12-25 | US_ITS ---
EXAMINATION: US LOWER EXTREMITY VEINS LIMITED FOLLOW UP LEFT HISTORY: leg pain and swelling rule out VTE COMPARISON: Comparison is made with the prior examination dated 11/30/2024. TECHNIQUE: Duplex and color Doppler sonographic examination of the deep venous system of the left lower extremity was performed. FINDINGS: The common femoral, superficial femoral, and popliteal veins are patent demonstrating normal compressibility, spontaneous flow, and augmentation. There is a normal color and spectral Doppler waveform appearance of the visualized deep venous system above the knee. The posterior tibial and peroneal veins are patent. Incidental note is made of a 1.2 x 0.6 x 0.9 cm fluid collection in the popliteal fossa, consistent with a Freeman's cyst. US/US venous duplex LE LT IMPRESSION: No evidence of acute DVT in the left lower extremity. Electronically signed by: Delfino Barone MD 12/25/2024 12:40 PM EDT
[2024-12-25 10:45] VITALS: BP 101/49; PULSE 69; RESP 16; TEMP 36.7; O2SAT 99; BMI 27.8
--- NOTE | 2024-12-25 10:49 | ECG_ITS ---
Test Reason : dizziness Blood Pressure : */* mmHG Vent. Rate : 72 BPM Atrial Rate : 72 BPM P-R Int : 160 ms QRS Dur : 70 ms QT Int : 370 ms P-R-T Axes : 45 34 20 degrees QTcB Int : 405 ms Normal sinus rhythm Normal ECG When compared with ECG of 20-Aug-2024 19:00, No significant change was found Referred By: Generic ED Physician Electronically Signed By: VASILE ARCE
--- NOTE | 2024-12-25 10:57 | ED.EXTPRO ---
HPI - Extremity Problem General Chief complaint: Extremity Problem Stated complaint: blood clot in leg Time Seen by Provider: 12/25/24 12:57 Source: patient Mode of arrival: ambulatory Limitations: no limitations History of Present Illness ED Provider: David Juares HPI Narrative: 64 yold female wtih pmhf of DVts presents to the ED for posterior left knee pain and left leg swelling that s chronic. patient denies any recent trauma, chest pain, shortness of breath, fever, chills, recent long travel, or any redness. Related Data Home Medications ?Medication ?Instructions ?Recorded ?Confirmed hydrochlorothiazide 12.5 mg capsule 12.5 mg PO DAILY 05/09/20 07/25/24 hydroxyzine HCl 25 mg tablet 50 mg PO BEDTIME 06/04/20 07/25/24 sertraline 100 mg tablet 1 tab PO BEDTIME 10/20/21 07/25/24 tizanidine 4 mg tablet 1 tab PO BEDTIME PRN Pain 10/20/21 07/25/24 cyanocobalamin (vitamin B-12) 1,000 mcg PO QAM 06/03/22 07/25/24 1,000 mcg tablet metformin 500 mg tablet,extended 500 mg PO BID 06/03/22 07/25/24 release 24 hr albuterol sulfate 90 mcg/actuation 2 puff inhalation Q4-6H PRN 08/25/23 07/25/24 aerosol inhaler Shortness Of Breath Or Wheezing oxycodone 5 mg tablet 5 mg PO Q6H PRN severe pain 09/27/23 07/25/24 pramipexole 0.5 mg tablet 0.5 mg PO TID 09/27/23 07/25/24 zolpidem 5 mg tablet 5 mg PO BEDTIME PRN insomnia 09/27/23 07/25/24 ferrous sulfate 325 mg (65 mg 325 mg PO QAM 10/27/23 07/25/24 iron) tablet ondansetron HCl 4 mg tablet 4 mg PO Q12H PRN nausea/vomiting 02/03/24 07/25/24 varenicline tartrate 1 mg tablet 1 mg PO BID 04/24/24 07/25/24 Previous Rx's ?Medication ?Instructions ?Recorded cholecalciferol (vitamin D3) 50 50 mcg PO DAILY #30 caps 12/15/20 mcg (2,000 unit) capsule fluticasone propionate 50 2 spray intranasal DAILY #16 grams 06/21/21 mcg/actuation nasal spray,suspension (Flonase Allergy Relief) blood-glucose meter (FreeStyle #1 ea 08/21/21 Lite Meter kit) blood sugar diagnostic (FreeStyle #150 strips 03/30/22 Lite Strips) thiamine HCl (vitamin B1) 100 mg 100 mg PO DAILY #90 tabs 06/07/22 tablet lidocaine 5 % topical patch 1 patch topical DAILY #15 ea 11/10/22 (Lidoderm) cyclobenzaprine 10 mg tablet 10 mg PO Q8H #20 tabs 01/07/23 meclizine 25 mg tablet 25 mg PO TID PRN dizziness #20 tabs 02/11/23 albuterol sulfate 1.25 mg/3 mL 1.25 mg (3 mL) inhalation QID PRN 06/11/23 solution for nebulization shortness of breath or wheezing #90 mL diclofenac sodium 1 % topical gel 2 g topical BID PRN pain (scale 07/18/23 (Aleve (diclofenac)) score 4-6) #100 grams prednisone 20 mg tablet 40 mg (2 x 20 mg) PO DAILY 5 days 06/03/24 #10 tabs barium sulfate 2 % (w/v) oral 450 ml PO ONCE #900 mL 07/31/24 suspension (Readi-Cat 2) pantoprazole 40 mg tablet,delayed 40 mg PO DAILY #60 tabs 08/22/24 release oxycodone-acetaminophen 5 mg-325 1 tab PO Q6H PRN Pain #5 tabs 10/01/24 mg tablet doxycycline hyclate 100 mg capsule 100 mg PO BID 5 days #10 caps 11/20/24 Allergies Allergy/AdvReac Type Severity Reaction Status Date / Time prochlorperazine (From Allergy Severe Seizure Verified 12/25/24 10:47 Compazine) Penicillins Allergy Intermediate HIVES Verified 12/25/24 10:47 sulfamethoxazole (From Allergy Intermediate BLISTERS- Verified 12/25/24 10:47 BACTRIM) DELGADO - NERVE ENDINGS IN HAND/ERYTHEMA MULTIFORM trimethoprim (From BACTRIM) Allergy Intermediate BLISTERS- Verified 12/25/24 10:47 DELGADO - NERVE ENDINGS IN HAND/ERYTHEMA MULTIFORM latex (Latex) Allergy Mild RASH Verified 12/25/24 10:47 transparent dressing AdvReac Severe Redness of Verified 12/25/24 10:47 (Tegaderm) Skin theophylline AdvReac Intermediate TACHYCARDIA Verified 12/25/24 10:47 Review of Systems Review of Systems: left posterior knee pain left leg swelling Yes all other systems are reviewed and are negative [facility] Past Medical History Medical History Abscess Abdominal pain Infection of skin due to methicillin resistant Staphylococcus aureus (MRSA) Numbness of right hand COVID-19 Sebaceous cyst Cubital tunnel syndrome on left Contusion of right ankle Numbness and tingling in left hand Left hand pain Stiffness of left hand joint Emesis Overweight (BMI 25.0-29.9) Borderline diabetes Dyslipidemia Non-toxic multinodular goiter Diabetes type 2, controlled History of restless legs syndrome Anxiety Depression High cholesterol Asthma DVT (deep venous thrombosis) GERD (gastroesophageal reflux disease) Anastomotic ulcer Surgical History Hx of colonoscopy H/O removal of cyst (02/03/23) History of removal of cyst (07/28/22) Hx of cholecystectomy History of surgery History of surgery on left wrist Hx of elbow surgery History of excision of epidermal inclusion cyst (03/23/22) Hx of excision of epidermal inclusion cyst (12/25/21) History of excision of mass (10/26/21) S/P trigger finger release History of tooth extraction Hx of hand surgery Hx of esophagogastroduodenoscopy S/P gastric bypass History of hysterectomy Family History Family History Mother Diabetes mellitus CHF (congestive heart failure) Kidney failure Cervical cancer Brother No problems noted. Brother No problems noted. 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 Physical Exam Vital Signs: Vital Signs: Last Vital Signs Temp 98.1 F 12/25/24 15:08 Pulse 66 12/25/24 15:08 Resp 15 12/25/24 15:08 BP 101/49 L 12/25/24 15:08 Pulse Ox 99 12/25/24 15:08 O2 Del Method Room Air 12/25/24 15:08 BMI result Body Mass Index 27.8 Const: General: cooperative, healthy appearing, comfortable, no acute distress, well developed, alert, awake and Physically active Orientation/consciousness: patient oriented x3 HEENT: Head: Yes normal to inspection, Yes No palpable skull fracture present, Yes normocephalic, Yes atraumatic and No abrasion Eyes: General: appearance normal, both eyes and all related structures Neck: Neck: Yes normal visual inspection, Yes full ROM, Yes no lymphadenopathy, Yes no meningeal signs, Yes trachea midline, Yes supple, No anterior neck swelling and No tender Chest: Chest palpation & inspection: normal inspection of the chest and normal palpation of entire chest wall Resp: Effort & Inspection: normal respiratory effort and able to speak in complete sentences Auscultation: clear to auscultation bilaterally Cardio: Jugular venous distension: no JVD Heart sounds: S1 normal heart sound present and S2 normal heart sound present GI: Inspection: Yes normal to inspection Palpation (GI): Soft to palpation, not firm, nontender and no guarding : General: Yes no CVA tenderness Back/Spine/Pelvis: Back: no CVA tenderness and No back tenderness Skin: General skin exam: no rashes or lesions noted, elasticity normal and turgor normal Neuro: General: patient oriented x3, gait normal, tone normal, moves all extremities, Normal light touch and pain sensation, no meningeal signs, no focal motor deficits, CN's II-XI intact bilaterally and normal sensation to monofilament Extrem: General: Yes normal to inspection, Yes full ROM and Yes capillary refill normal Knee images:  1. Positive for tenderness on palpation. Negative for erythema, stiffness, palpable mass, or profuse obvious swelling. Rest of extremity normal. Motor/neuro/vascular exam intact. Psych: Appearance: grossly normal, well kempt and not disheveled Medical Decision Making Medical Decision Making MDM Narrative: 64-year-old female presents to the ED for left posterior knee left leg swelling which is chronic and has history of Freeman's cysts and DVTs. Patient's labs are normal. Ultrasound negative for DVT but confirms Freeman cyst. Not suspect osteomyelitis, compartment syndrome, arterial occlusion, cellulitis, osteomyelitis, fracture, setpic joint, dislocation, or any oher life threatening etiolog. Patient has oxycodone at home informed to continue taking the medication and follow up with her orthopedic surgeon. 2:51pm: Patient is presently has no dizziness but due to patient stating she had dizziness earlier troponin was done. EKG negative STEMI. NIH score is 0. not suspecting stroke. No indication for head CT scan. Patient has normal gait. Patient informed to continue taking oxycodone for pain and informed to follow-up with orthopedics. Patient explained worrisome signs and informed to return to the ED immediately Differential Diagnosis Differential Diagnoses: The differential diagnosis associated with the presentation includes (DVT, freeman cysts) Admission/Observation Consideration of admission/observation: Escalation of care including admission/observation considered Lab Data [facility] Lab Attestation statement: I reviewed the patient's lab results. 12/25/24 11:08 12/25/24 11:07 Labs: Lab Results 12/25/24 12/25/24 12/25/24 Range/Units 11:07 11:08 14:15 WBC 7.1 (4.8-10.8) X10*3/uL RBC 4.42 (4.20-5.50) X10*6/uL Hgb 13.1 (12.0-16.0) g/dl Hct 39.4 (37.0-47.0) % MCV 89.1 (80.0-98.0) fL MCH 29.6 (27.0-33.0) pg MCHC 33.2 (31.0-35.0) g/dl RDW 13.2 (11.0-16.0) % Plt Count 189 (160-400) X10*3/uL MPV 10.1 (9.4-12.3) fL Immature Gran % (Auto) 0.3 (0.0-0.4) % Neut % (Auto) 65.1 (45-73) % Lymph % (Auto) 25.7 (20-40) % [place] % (Auto) 5.2 (2-11) % Eos % (Auto) 3.3 (0-4) % Baso % (Auto) 0.4 (0-2) % Lymph # (Auto) 1.8 (1.2-4.9) X10*3/uL [place] # (Auto) 0.4 (0.1-1.2) X10*3/uL Eos # (Auto) 0.2 (0.0-0.4) X10*3/uL Baso # (Auto) 0.0 (0.0-0.2) X10*3/uL Abs Immat Gran (auto) 0.02 (0.00-0.03) X10*3/uL Absolute Neuts (auto) 4.6 (2.0-8.3) x10*3/uL Absolute Nucleated RBC 0.000 (0.0-0.012) X10*3/uL Nucleated RBC % (auto) 0.0 (0.0-0.2) /100WBC PT 11.0 (10.9-12.4) SEC INR 1.0 (0.9-1.1) APTT 31.0 (26.0-36.8) SEC Sodium 141 (135-145) mmol/L Potassium 4.0 (3.3-5.1) mmol/L Chloride 108 (96-108) mmol/L Carbon Dioxide 28 (22-29) mmol/L Anion Gap 9 L (12-20) BUN 15 (9-16) mg/dL Creatinine 0.69 (0.5-1.4) mg/dL Estim Creat Clear Calc 79.9 Estimated GFR > 60 Random Glucose 141 H (60-115) mg/dL Calcium 8.8 (8.4-10.2) mg/dL Troponin I High Sens < 2.7 (<3.5-17.0) ng/L B-Natriuretic Peptide 20 (<100) pg/mL Independent Interpretation I performed an independent interpretation of an: Ultrasound Prescription Management I considered prescription management with: Pain Medication Discharge Plan Discharge Clinical Impression: Freeman cyst Patient Disposition: Home, Self-Care Instructions: Freeman Cyst (ED) Additional Instructions: Ultrasound came back negative for blood clot but does confirm a shows Freeman cyst. Continue taking oxycodone you have at home for pain relief. Recommend follow-up in calling orthopedic surgeon for earlier appointment. Return to the ED immediately for any worsening pain, swelling, redness, stiffness, calf pain, chest pain, shortness of breath, or any other concerning symptoms. Your labs EKG were reassuring EXAMINATION: US LOWER EXTREMITY VEINS LIMITED FOLLOW UP LEFT HISTORY: leg pain and swelling rule out VTE COMPARISON: Comparison is made with the prior examination dated 11/30/2024. TECHNIQUE: Duplex and color Doppler sonographic examination of the deep venous system of the left lower extremity was performed. FINDINGS: The common femoral, superficial femoral, and popliteal veins are patent demonstrating normal compressibility, spontaneous flow, and augmentation. There is a normal color and spectral Doppler waveform appearance of the visualized deep venous system above the knee. The posterior tibial and peroneal veins are patent. Incidental note is made of a 1.2 x 0.6 x 0.9 cm fluid collection in the popliteal fossa, consistent with a Freeman's cyst. US/US venous duplex LE LT IMPRESSION: No evidence of acute DVT in the left lower extremity. Electronically signed by: Delfino Barone MD 12/25/2024 12:40 PM EDT RP Prescriptions: No Action cholecalciferol (vitamin D3) 50 mcg (2,000 unit) capsule 50 mcg PO DAILY Qty: 30 11RF (DME) FreeStyle Lite Strips Strip See Rx Instructions .ROUTE .COMPLEX Qty: 150 6RF Dose Instruction: USE TO TEST BLOOD SUGAR TWICE DAILY Rx Instructions: USE TO TEST BLOOD SUGAR TWICE DAILY thiamine HCl (vitamin B1) 100 mg tablet 100 mg PO DAILY Qty: 90 3RF Readi-Cat 2 2 % (w/v) suspension 450 ml PO ONCE Qty: 900 0RF Rx Instructions: Drink both bottles [address] scan pantoprazole 40 mg tablet,delayed release (DR/EC) 40 mg PO DAILY Qty: 60 6RF hydroxyzine HCl 25 mg tablet 50 mg PO BEDTIME sertraline 100 mg tablet 1 tab PO BEDTIME tizanidine 4 mg tablet 1 tab PO BEDTIME PRN (Reason: Pain) fluticasone propionate [Flonase Allergy Relief] 50 mcg/actuation spray,suspension 2 spray intranasal DAILY Qty: 16 0RF Rx Instructions: administer into each nostril metformin 500 mg tablet extended release 24 hr 500 mg PO BID albuterol sulfate 1.25 mg/3 mL solution for nebulization 1.25 mg inhalation QID PRN (Reason: shortness of breath or wheezing) Qty: 90 0RF albuterol sulfate 90 mcg/actuation Hfa Aerosol Inhaler 2 puff INHALATION Q4-6H PRN (Reason: Shortness Of Breath Or Wheezing) oxycodone-acetaminophen 5-325 mg Tablet 1 tab PO Q6H PRN (Reason: Pain) Qty: 5 0RF Rx Instructions: Partial Fill upon patient request. doxycycline hyclate 100 mg capsule 100 mg PO BID 5 Days Qty: 10 0RF lidocaine [Lidoderm] 5 % adhesive patch,medicated 1 patch topical DAILY Qty: 15 0RF Rx Instructions: leave on most painful area for up to 12 hrs cyclobenzaprine 10 mg tablet 10 mg PO Q8H Qty: 20 0RF meclizine 25 mg tablet 25 mg PO TID PRN (Reason: dizziness) Qty: 20 0RF diclofenac sodium [Aleve (diclofenac)] 1 % gel 2 g topical BID PRN (Reason: pain (scale score 4-6)) Qty: 100 0RF Rx Instructions: apply to single elbow, wrist or hand; for hand includes palm/fingers/back of hand prednisone 20 mg tablet 40 mg PO DAILY 5 Days Qty: 10 0RF hydrochlorothiazide 12.5 mg capsule 12.5 mg PO DAILY (DME) blood-glucose meter [FreeStyle Lite Meter] Kit See Rx Instructions .Route Qty: 1 0RF Rx Instructions: As directed test blood sugar two times a day cyanocobalamin (vitamin B-12) 1,000 mcg tablet 1,000 mcg PO QAM oxycodone 5 mg tablet 5 mg PO Q6H PRN (Reason: severe pain) zolpidem 5 mg tablet 5 mg PO BEDTIME PRN (Reason: insomnia) pramipexole 0.5 mg tablet 0.5 mg PO TID varenicline tartrate 1 mg tablet 1 mg PO BID ferrous sulfate 325 mg (65 mg iron) tablet 325 mg PO QAM ondansetron HCl 4 mg tablet 4 mg PO Q12H PRN (Reason: nausea/vomiting) Referrals: [facility] Orthopedic Surgeons [Provider Group, Orthopedics] - 2 days Referral Note: Left knee Freeman's cyst Clinical Impression: Freeman cyst Stand Alone Forms: Work/School Release Interventions: ED Discharge Assessment Last Done: 12/25/24 15:08 Discharge Date/Time: 12/25/24 15:12 Print Language: Citizen Of [place]
[2024-12-25 11:20] LABS: MANUAL DIFF FLAG NO
[2024-12-25 11:24] LABS: Basophils Percent Auto 0.4 % (0-2); Eosinophils Absolute Auto 0.2 X10*3/uL (0.0-0.4); Eosinophils Percent Auto 3.3 % (0-4); Hematocrit 39.4 % (37.0-47.0); Hemoglobin 13.1 g/dl (12.0-16.0); Imm Gran Abs Auto 0.02 X10*3/uL (0.00-0.03); Imm Gran Pct Auto 0.3 % (0.0-0.4); Lymphocytes Absolute Auto 1.8 X10*3/uL (1.2-4.9); Lymphocytes Percent Auto 25.7 % (20-40); Mean Corpuscular HGB Conc 33.2 g/dl (31.0-35.0); Mean Corpuscular Hemoglobin 29.6 pg (27.0-33.0); Mean Corpuscular Volume 89.1 fL (80.0-98.0); Mean Platelet Volume 10.1 fL (9.4-12.3); Monocytes Absolute Auto 0.4 X10*3/uL (0.1-1.2); Monocytes Percent Auto 5.2 % (2-11); Neutrophils Absolute Auto 4.6 x10*3/uL (2.0-8.3); Neutrophils Percent Auto 65.1 % (45-73); Platelet Count 189 X10*3/uL (160-400); Red Blood Count 4.42 X10*6/uL (4.20-5.50); Red Cell Distribution Width 13.2 % (11.0-16.0); White Blood Count 7.1 X10*3/uL (4.8-10.8)
[2024-12-25 11:36] LABS: Anion Gap 9 (12-20); Blood Urea Nitrogen 15 mg/dL (9-16); Calcium 8.8 mg/dL (8.4-10.2); Carbon Dioxide 28 mmol/L (22-29); Chloride 108 mmol/L (96-108); Creatinine Clr Calc Pharmacy 79.9; Estimated Glomerular Filt Rate > 60; Glucose Random 141 mg/dL (60-115); Sodium 141 mmol/L (135-145)
[2024-12-25 11:43] LABS: B Type Natriuretic Peptide 20 pg/mL (<100)
[2024-12-25 14:43] LABS: Troponin-I High Sensitivity < 2.7 ng/L (<3.5-17.0)
--- OUTSIDE RECORDS SUMMARY | 2024-12-25 14:48 | XMS_ITS | Encounter Summary ---
Author Organization [employer] Address [address] [place] [address] Care Team Providers Care Assembler Production Line Name Role Phone Joyce Tapia MD Primary Care Provider [phone] Reason for Visit * Reason Onset Date Comments Med Refill 09/24/2024 Encounter Details Date Type Department Care Team (Late st Contact Info) Description 09/24/2024 Refill [facility] [address] [place], [place] [phone] Joyce Tapia MD [address] [place] [address] Status post surgical removal of nail matrix [...] Care Team (Late st Contact Info) Description 12/31/2024 9:00 AM EDT Medication Management [facility] [address] [place] [address] Cristal Muhammad, PharmD [address] [place] [address] 02/05/2025 9:00 AM EDT Office Visit [facility] [address] [place] [address] Ayden Orellana MD [address] [place] [address] 03/11/2025 11:30 AM EDT Telemedicine [facility] [address] [place] [address] Joyce Tapia MD [address] [place] [address] documented as of this encounter Visit Diagnoses Diagnosis Status post surgical removal of nail matrix of toe of left foot documented in this encounter Additional Health Concerns Assessment Noted Time PHQ-9 Depression Total Score: 7 09/15/19 25 9:02 AM EDT documented as of this encounter Care Teams Assembler Production Line Relationship Specialty Start Date End Date oJyce Tapia MD [address] [place] [id number] PCP - General Family Medicine 06/19/12 documented as of this encounter
[2024-12-25 15:08] VITALS: BP 101/49; PULSE 66; RESP 15; TEMP 36.7; O2SAT 99
== END 2024-12-25 15:12 | disposition home or self-care (01) ==
PROVIDERS: Physician Assistant; Emergency Provider Emergency Medicine; PCP Student in an Organized Health Care Education/Training Program
DX: M71.22 Synovial cyst of popliteal space [Baker], left knee (principal); M25.562 Pain in left knee; R42 Dizziness and giddiness; E11.9 Type 2 diabetes mellitus without complications; E78.00 Pure hypercholesterolemia, unspecified; J45.909 Unspecified asthma, uncomplicated; Z86.718 Personal history of other venous thrombosis and embolism; G89.4 Chronic pain syndrome; Z98.84 Bariatric surgery status; Z87.891 Personal history of nicotine dependence; Z79.899 Other long term (current) drug therapy; Z79.84 Long term (current) use of oral hypoglycemic drugs
CPT/HCPCS: 36415; 80048; 83880; 84484; 85025; 85610; 85730; 93005; 93971; 99284

== ENCOUNTER → 2024-12-25 10:49 | Outpatient (BNV) | payer OTHER, SELFPAY | PROVIDERS: Emergency Provider Emergency Medicine; PCP Student in an Organized Health Care Education/Training Program; Visit Provider Internal Medicine | DX: R42 Dizziness and giddiness (principal) | CPT/HCPCS: 93010 ==

== ENCOUNTER → 2024-12-25 10:57 | Outpatient (BNV) | payer OTHER, SELFPAY | PROVIDERS: PCP Student in an Organized Health Care Education/Training Program; Visit Provider Radiology Diagnostic Radiology | DX: M79.605 Pain in left leg (principal); R22.42 Localized swelling, mass and lump, left lower limb | CPT/HCPCS: 93971 ==

== ENCOUNTER 2025-01-06 20:23 | Emergency (ER) | payer OTHER, SELFPAY ==
--- NOTE | ~2025-01-06 | CT_ITS ---
CLINICAL HISTORY: bariatric oral protocol. LUQ pain tend. Rect bleed CT abdomen and pelvis with contrast Comparison: CT/SR - CT ABDOMEN PELVIS W IV CON - 09/11/24 16:18 EDT Findings: No consolidation or effusion. The gallbladder is surgically absent. The solid organs are within normal limits. No hydronephrosis or hydroureter. No bowel obstruction, pneumoperitoneum, or pneumatosis. There are postsurgical changes of the bowel compatible with gastric bypass. Contrast is identified within the bowel from the level of the stomach to the hepatic flexure of the colon. No extraluminal contrast visualized. The uterus is surgically absent. The bladder is collapsed, limiting its evaluation. Normal appendix. No acute fracture visualized. IMPRESSION: 1. Postoperative changes compatible with gastric bypass. No CT evidence of complication. No bowel obstruction. No abscess. This document has been electronically signed by: Dawson Youssef MD on 01/07/2025 03:03:08
--- NOTE | 2025-01-06 20:33 | ED.GENADULT ---
HPI - General Adult General Chief complaint: Abdominal Pain Stated complaint: pain in abd/back, bloody stool Time Seen by Provider: 01/06/25 21:54 Related Data Home Medications ?Medication ?Instructions ?Recorded ?Confirmed hydrochlorothiazide 12.5 mg capsule 12.5 mg PO DAILY 05/09/20 07/25/24 hydroxyzine HCl 25 mg tablet 50 mg PO BEDTIME 06/04/20 07/25/24 sertraline 100 mg tablet 1 tab PO BEDTIME 10/20/21 07/25/24 tizanidine 4 mg tablet 1 tab PO BEDTIME PRN Pain 10/20/21 07/25/24 cyanocobalamin (vitamin B-12) 1,000 mcg PO QAM 06/03/22 07/25/24 1,000 mcg tablet metformin 500 mg tablet,extended 500 mg PO BID 06/03/22 07/25/24 release 24 hr albuterol sulfate 90 mcg/actuation 2 puff inhalation Q4-6H PRN 08/25/23 07/25/24 aerosol inhaler Shortness Of Breath Or Wheezing oxycodone 5 mg tablet 5 mg PO Q6H PRN severe pain 09/27/23 07/25/24 pramipexole 0.5 mg tablet 0.5 mg PO TID 09/27/23 07/25/24 zolpidem 5 mg tablet 5 mg PO BEDTIME PRN insomnia 09/27/23 07/25/24 ferrous sulfate 325 mg (65 mg 325 mg PO QAM 10/27/23 07/25/24 iron) tablet ondansetron HCl 4 mg tablet 4 mg PO Q12H PRN nausea/vomiting 02/03/24 07/25/24 varenicline tartrate 1 mg tablet 1 mg PO BID 04/24/24 07/25/24 Previous Rx's ?Medication ?Instructions ?Recorded cholecalciferol (vitamin D3) 50 50 mcg PO DAILY #30 caps 12/15/20 mcg (2,000 unit) capsule fluticasone propionate 50 2 spray intranasal DAILY #16 grams 06/21/21 mcg/actuation nasal spray,suspension (Flonase Allergy Relief) blood-glucose meter (FreeStyle #1 ea 08/21/21 Lite Meter kit) blood sugar diagnostic (FreeStyle #150 strips 03/30/22 Lite Strips) thiamine HCl (vitamin B1) 100 mg 100 mg PO DAILY #90 tabs 06/07/22 tablet lidocaine 5 % topical patch 1 patch topical DAILY #15 ea 11/10/22 (Lidoderm) cyclobenzaprine 10 mg tablet 10 mg PO Q8H #20 tabs 01/07/23 meclizine 25 mg tablet 25 mg PO TID PRN dizziness #20 tabs 02/11/23 albuterol sulfate 1.25 mg/3 mL 1.25 mg (3 mL) inhalation QID PRN 06/11/23 solution for nebulization shortness of breath or wheezing #90 mL diclofenac sodium 1 % topical gel 2 g topical BID PRN pain (scale 07/18/23 (Aleve (diclofenac)) score 4-6) #100 grams prednisone 20 mg tablet 40 mg (2 x 20 mg) PO DAILY 5 days 06/03/24 #10 tabs barium sulfate 2 % (w/v) oral 450 ml PO ONCE #900 mL 07/31/24 suspension (Readi-Cat 2) pantoprazole 40 mg tablet,delayed 40 mg PO DAILY #60 tabs 08/22/24 release oxycodone-acetaminophen 5 mg-325 1 tab PO Q6H PRN Pain #5 tabs 10/01/25 mg tablet doxycycline hyclate 100 mg capsule 100 mg PO BID 5 days #10 caps 11/20/24 Allergies Allergy/AdvReac Type Severity Reaction Status Date / Time prochlorperazine (From Allergy Severe Seizure Verified 01/06/25 20:35 Compazine) Penicillins Allergy Intermediate HIVES Verified 01/06/25 20:35 sulfamethoxazole (From Allergy Intermediate BLISTERS- Verified 01/06/25 20:35 BACTRIM) DELGADO - NERVE ENDINGS IN HAND/ERYTHEMA MULTIFORM trimethoprim (From BACTRIM) Allergy Intermediate BLISTERS- Verified 01/06/25 20:35 DELGADO - NERVE ENDINGS IN HAND/ERYTHEMA MULTIFORM latex (Latex) Allergy Mild RASH Verified 01/06/25 20:35 transparent dressing AdvReac Severe Redness of Verified 01/06/25 20:35 (Tegaderm) Skin theophylline AdvReac Intermediate TACHYCARDIA Verified 01/06/25 20:35 [facility] Past Medical History Medical History Abscess Abdominal pain Infection of skin due to methicillin resistant Staphylococcus aureus (MRSA) Numbness of right hand COVID-19 Sebaceous cyst Cubital tunnel syndrome on left Contusion of right ankle Numbness and tingling in left hand Left hand pain Stiffness of left hand joint Emesis Overweight (BMI 25.0-29.9) Borderline diabetes Dyslipidemia Non-toxic multinodular goiter Diabetes type 2, controlled History of restless legs syndrome Anxiety Depression High cholesterol Asthma DVT (deep venous thrombosis) GERD (gastroesophageal reflux disease) Anastomotic ulcer Surgical History Hx of colonoscopy H/O removal of cyst (02/03/23) History of removal of cyst (07/28/22) Hx of cholecystectomy History of surgery History of surgery on left wrist Hx of elbow surgery History of excision of epidermal inclusion cyst (03/23/22) Hx of excision of epidermal inclusion cyst (12/25/21) History of excision of mass (10/26/21) S/P trigger finger release History of tooth extraction Hx of hand surgery Hx of esophagogastroduodenoscopy S/P gastric bypass History of hysterectomy Family History Family History Mother Diabetes mellitus CHF (congestive heart failure) Kidney failure Cervical cancer Brother No problems noted. Brother No problems noted. Social History Social History Household Members: Spouse Are you a primary transitions rn care coordinator to a significant other at home: No Do you presently have visiting nurse or other home services: No Unable to assess alcohol history related to: Unknown Alcohol intake: former Patient Tobacco Use Status: Former Tobacco user Tobacco use type: Cigarette Cigarette Packs Per Day: 0 Cigarettes Per Day: 1 Years Smoked: 30 Smoked in Last 30 Days: Yes Use of substances other than those prescribed or required for medical reasons: No Advance Directives: No Advance Directives Information Provided: No Advance Directives Date on File: 03/16/24 Current occupational status: employed 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 Patient is a 64-year-old female with history of asthma, GERD, T2DM, s/p gastric bypass presenting with complaint of epigastric abdominal pain radiating to upper back/shoulders for past 4 days. Straining to have BMs which is causing her to feel dizzy, lightheaded. Now having diarrhea with bright red blood. Plan: Labs, UA Reevaluation(s) Reevaluation #1: CT is reassuring with no evidence of acute process. Certainly no bowel obstruction. She is complaining of 9/10 pain again. Probable gastritis versus developing ulcer. She has already received Protonix. Morphine only lasted a short period of time. We will potentiate the morphine with Haldol. Once she is feeling improved, we will discharge home. GI/surgery outpatient follow up. Time: 03:12 Medications Administered Discontinued Medications Generic Name Dose Route Start Last Admin Trade Name Richardq PRN Reason Stop Dose Admin Diatrizoate Meglum/Diatrizoate Sod 30 ml 01/07/25 01:52 01/07/25 01:52 Diatrizoate Meglumine, Sodium 30 Ml Solution PO 01/07/25 01:53 30 ml ONCE ONE Administration Haloperidol Lactate 5 mg 01/07/25 03:07 01/07/25 03:20 Haloperidol Lactate 5 Mg/Ml Vial IVPUSH 01/07/25 03:08 5 mg ONCE ONE Administration Iohexol 85 ml 01/07/25 01:54 01/07/25 01:55 Iohexol 350 Mg/Ml 100 Ml Infus..Btl IV 01/07/25 01:55 85 ml ONCE ONE Administration Morphine Sulfate 4 mg 01/06/25 22:25 01/06/25 22:55 Morphine Sulfate 4 Mg/Ml Cartridge IVPUSH 01/06/25 22:26 4 mg ONCE ONE Administration Protocol Ondansetron HCl 4 mg 01/06/25 23:24 01/06/25 23:27 Ondansetron Hcl 4 Mg/2 Ml Vial IVPUSH 01/06/25 23:25 4 mg ONCE ONE Administration Pantoprazole Sodium 40 mg 01/06/25 22:25 01/06/25 22:56 Pantoprazole Sodium 40 Mg/10 Ml Vial IVPUSH 01/06/25 22:26 40 mg ONCE ONE Administration Medical Decision Making Lab Data 01/06/25 20:46 01/06/25 20:46 Labs: Lab Results 01/06/25 01/06/25 Range/Units 20:46 20:50 WBC 8.2 (4.8-10.8) X10*3/uL RBC 4.50 (4.20-5.50) X10*6/uL Hgb 13.5 (12.0-16.0) g/dl Hct 39.4 (37.0-47.0) % MCV 87.6 (80.0-98.0) fL MCH 30.0 (27.0-33.0) pg MCHC 34.3 (31.0-35.0) g/dl RDW 13.2 (11.0-16.0) % Plt Count 199 (160-400) X10*3/uL MPV 9.9 (9.4-12.3) fL Immature Gran % (Auto) 0.1 (0.0-0.4) % Neut % (Auto) 63.7 (45-73) % Lymph % (Auto) 28.1 (20-40) % Terry % (Auto) 5.2 (2-11) % Eos % (Auto) 2.8 (0-4) % Baso % (Auto) 0.1 (0-2) % Lymph # (Auto) 2.3 (1.2-4.9) X10*3/uL Terry # (Auto) 0.4 (0.1-1.2) X10*3/uL Eos # (Auto) 0.2 (0.0-0.4) X10*3/uL Baso # (Auto) 0.0 (0.0-0.2) X10*3/uL Abs Immat Gran (auto) 0.01 (0.00-0.03) X10*3/uL Absolute Neuts (auto) 5.2 (2.0-8.3) x10*3/uL Absolute Nucleated RBC 0.000 (0.0-0.012) X10*3/uL Nucleated RBC % (auto) 0.0 (0.0-0.2) /100WBC Sodium 146 H (135-145) mmol/L Potassium 3.8 (3.3-5.1) mmol/L Chloride 111 H (96-108) mmol/L Carbon Dioxide 28 (22-29) mmol/L Anion Gap 11 L (12-20) BUN 13 (9-16) mg/dL Creatinine 0.98 (0.5-1.4) mg/dL Estim Creat Clear Calc 55.0 Estimated GFR 58 Random Glucose 117 H (60-115) mg/dL Calcium 8.9 (8.4-10.2) mg/dL Magnesium 2.1 (1.6-2.6) mg/dL Total Bilirubin 0.4 (0.0-1.0) mg/dL AST 23 (5-31) U/L ALT 25 (0-31) U/L Alkaline Phosphatase 98 (39-117) U/L B-Natriuretic Peptide 20 (<100) pg/mL Total Protein 6.7 (6.5-8.0) g/dL Albumin 4.1 (3.5-5.0) g/dL Lipase 27 (8-78) U/L Urine Color Yellow Urine Appearance Clear Urine pH 6.5 (5.0-9.0) Ur Specific Monette >= 1.030 H (1.005-1.025) Urine Protein Negative (Neg-Trace) mg/dL Urine Glucose (UA) >=1000 H (Negative) mg/dL Urine Ketones Trace (Negative) mg/dL Urine Blood Negative (Negative) Urine Nitrite Negative (Negative) Ur Leukocyte Esterase Negative (Negative) Urine RBC 0-2 (0-2) /HPF Urine WBC 0-5 (0-5) /HPF Ur Squamous Epith Cells 0-2 (0-2) /HPF Urine Bacteria None Seen (None Seen) Hyaline Casts 0-2 (0-2) /LPF Discharge Plan Discharge Clinical Impression: Abdominal pain, acute Patient Disposition: Home, Self-Care Instructions: Acute Abdominal Pain (ED) Additional Instructions: Follow-up with your surgeon as soon as possible. Return to the emergency department with any new or worsening symptoms including: Chest pain, difficulty breathing, worsening abdominal pain, fevers greater than 100?, any new symptom that concerns you. Prescriptions: No Action cholecalciferol (vitamin D3) 50 mcg (2,000 unit) capsule 50 mcg PO DAILY Qty: 30 11RF (DME) FreeStyle Lite Strips Strip See Rx Instructions .ROUTE .COMPLEX Qty: 150 6RF Dose Instruction: USE TO TEST BLOOD SUGAR TWICE DAILY Rx Instructions: USE TO TEST BLOOD SUGAR TWICE DAILY thiamine HCl (vitamin B1) 100 mg tablet 100 mg PO DAILY Qty: 90 3RF Readi-Cat 2 2 % (w/v) suspension 450 ml PO ONCE Qty: 900 0RF Rx Instructions: Drink both bottles [address] scan pantoprazole 40 mg tablet,delayed release (DR/EC) 40 mg PO DAILY Qty: 60 6RF hydroxyzine HCl 25 mg tablet 50 mg PO BEDTIME sertraline 100 mg tablet 1 tab PO BEDTIME tizanidine 4 mg tablet 1 tab PO BEDTIME PRN (Reason: Pain) fluticasone propionate [Flonase Allergy Relief] 50 mcg/actuation spray,suspension 2 spray intranasal DAILY Qty: 16 0RF Rx Instructions: administer into each nostril metformin 500 mg tablet extended release 24 hr 500 mg PO BID albuterol sulfate 1.25 mg/3 mL solution for nebulization 1.25 mg inhalation QID PRN (Reason: shortness of breath or wheezing) Qty: 90 0RF albuterol sulfate 90 mcg/actuation Hfa Aerosol Inhaler 2 puff INHALATION Q4-6H PRN (Reason: Shortness Of Breath Or Wheezing) oxycodone-acetaminophen 5-325 mg Tablet 1 tab PO Q6H PRN (Reason: Pain) Qty: 5 0RF Rx Instructions: Partial Fill upon patient request. doxycycline hyclate 100 mg capsule 100 mg PO BID 5 Days Qty: 10 0RF lidocaine [Lidoderm] 5 % adhesive patch,medicated 1 patch topical DAILY Qty: 15 0RF Rx Instructions: leave on most painful area for up to 12 hrs cyclobenzaprine 10 mg tablet 10 mg PO Q8H Qty: 20 0RF meclizine 25 mg tablet 25 mg PO TID PRN (Reason: dizziness) Qty: 20 0RF diclofenac sodium [Aleve (diclofenac)] 1 % gel 2 g topical BID PRN (Reason: pain (scale score 4-6)) Qty: 100 0RF Rx Instructions: apply to single elbow, wrist or hand; for hand includes palm/fingers/back of hand prednisone 20 mg tablet 40 mg PO DAILY 5 Days Qty: 10 0RF hydrochlorothiazide 12.5 mg capsule 12.5 mg PO DAILY (DME) blood-glucose meter [FreeStyle Lite Meter] Kit See Rx Instructions .Route Qty: 1 0RF Rx Instructions: As directed test blood sugar two times a day cyanocobalamin (vitamin B-12) 1,000 mcg tablet 1,000 mcg PO QAM oxycodone 5 mg tablet 5 mg PO Q6H PRN (Reason: severe pain) zolpidem 5 mg tablet 5 mg PO BEDTIME PRN (Reason: insomnia) pramipexole 0.5 mg tablet 0.5 mg PO TID varenicline tartrate 1 mg tablet 1 mg PO BID ferrous sulfate 325 mg (65 mg iron) tablet 325 mg PO QAM ondansetron HCl 4 mg tablet 4 mg PO Q12H PRN (Reason: nausea/vomiting) Print Language: Yoruba
[2025-01-06 20:34] VITALS: BP 127/72; PULSE 89; RESP 16; TEMP 36.8; O2SAT 98; BMI 26.5
[2025-01-06 20:50] LABS: MANUAL DIFF FLAG NO
[2025-01-06 20:51] LABS: Hematocrit 39.4 % (37.0-47.0); Hemoglobin 13.5 g/dl (12.0-16.0); Imm Gran Abs Auto 0.01 X10*3/uL (0.00-0.03); Imm Gran Pct Auto 0.1 % (0.0-0.4); Lymphocytes Absolute Auto 2.3 X10*3/uL (1.2-4.9); Mean Corpuscular HGB Conc 34.3 g/dl (31.0-35.0); Mean Corpuscular Hemoglobin 30.0 pg (27.0-33.0); Mean Corpuscular Volume 87.6 fL (80.0-98.0); NRBC Abs Auto 0.000 X10*3/uL (0.0-0.012); NRBC Pct Auto 0.0 /100WBC (0.0-0.2); Platelet Count 199 X10*3/uL (160-400); Red Blood Count 4.50 X10*6/uL (4.20-5.50); White Blood Count 8.2 X10*3/uL (4.8-10.8)
[2025-01-06 21:00] LABS: Appearance Urine Clear; Glucose Urine UA >=1000 mg/dL (Negative); PH 6.5 (5.0-9.0); Specific Gravity - Urine >= 1.030 (1.005-1.025); UMIC TRIGGER UACC YES
[2025-01-06 21:05] LABS: Alanine Aminotransferase 25 U/L (0-31); Albumin Level 4.1 g/dL (3.5-5.0); Alkaline Phosphatase 98 U/L (39-117); Anion Gap 11 (12-20); Aspartate Amino Transferase 23 U/L (5-31); Blood Urea Nitrogen 13 mg/dL (9-16); Calcium 8.9 mg/dL (8.4-10.2); Carbon Dioxide 28 mmol/L (22-29); Chloride 111 mmol/L (96-108); Creatinine Clr Calc Pharmacy 55.0; Estimated Glomerular Filt Rate 58; Lipase 27 U/L (8-78); Magnesium 2.1 mg/dL (1.6-2.6); Potassium 3.8 mmol/L (3.3-5.1); Sodium 146 mmol/L (135-145); Total Protein 6.7 g/dL (6.5-8.0)
[2025-01-06 22:07] LABS: B Type Natriuretic Peptide 20 pg/mL (<100)
[2025-01-06 22:26] VITALS: BP 118/63; PULSE 66; RESP 16; TEMP 36.4; O2SAT 96
[2025-01-06 22:55] VITALS: RESP 16
--- NOTE | 2025-01-06 23:31 | PC.NURSE ---
pt reports nausea. RN asked provider for antiemetic for pt since she needs to drink oral contrast for ct scan. RN let gameroom technician know.
[2025-01-07 01:44] VITALS: BP 111/60; PULSE 87; RESP 16; TEMP 36.6; O2SAT 97
[2025-01-07] MEDS: iohexoL 350 MG/ML 100 ML INFUS..BTL 85 ML IV (01:55)
--- NOTE | 2025-01-07 03:09 | PC.NURSE ---
RN spoke to provider regarding pts 8/10 pain. Provider ordered dose of haldol. provider asked RN to keep pt on O2 monitor. RN to medicate pt once order is in the MAR.
[2025-01-07 04:43] VITALS: BP 110/58; PULSE 85; RESP 16; TEMP 36.7; O2SAT 97
[2025-01-07 05:29] VITALS: BP 110/58; PULSE 85; RESP 16; TEMP 36.7; O2SAT 97
== END 2025-01-07 05:32 | disposition home or self-care (01) ==
PROVIDERS: Registered Nurse Emergency; Emergency Provider Emergency Medicine
DX: R10.2 Pelvic and perineal pain (principal); K92.1 Melena; M54.50 Low back pain, unspecified; R10.13 Epigastric pain; R42 Dizziness and giddiness; R06.02 Shortness of breath; Z79.899 Other long term (current) drug therapy; Z87.891 Personal history of nicotine dependence; Z98.84 Bariatric surgery status
CPT/HCPCS: 36415; 74177; 80053; 81001; 81003; 83690; 83735; 83880; 85025; 96374; 96375; 99284; J1200; J1630; J2270; J2405; J2470; Q9967

== ENCOUNTER → 2025-01-07 01:45 | Outpatient (BNV) | payer OTHER, SELFPAY | PROVIDERS: Emergency Provider Emergency Medicine; Visit Provider Radiology Diagnostic Radiology | DX: R10.12 Left upper quadrant pain (principal); K62.5 Hemorrhage of anus and rectum | CPT/HCPCS: 74177 ==

== ENCOUNTER 2025-01-07 15:16 | Outpatient (AMB) | payer OTHER, SELFPAY ==
--- OUTSIDE RECORDS SUMMARY | 2025-01-07 15:35 | XMS_ITS | Encounter Summary ---
Author Organization [email or web address] Address [address] [place] [address] Care Team Providers Care Party Plan Sales Unit Sales Leader Name Role Phone Joyce Tapia MD Primary Care Provider [phone] Reason for Visit * Reason Onset Date Comments Med Refill 09/24/2024 Encounter Details Date Type Department Care Team (Late st Contact Info) Description 09/24/[address] [facility] [address], [place] [id number] Joyce Tapia MD [address] [place] [address] Status post surgical removal of nail matrix [...] Care Team (Late st Contact Info) Description 01/22/2025 9:45 AM EDT Office Visit [facility] [address] [place] [id number] 02/05/2025 9:00 AM EDT Office Visit [facility] [address] [place] [address] Ayden Orellana MD [address] [place] [address] 03/11/2025 11:30 AM EDT Telemedicine [facility] [address] [place] [address] Joyce Tapia MD [address] [place] [address] documented as of this encounter Visit Diagnoses Diagnosis Status post surgical removal of nail matrix of toe of left foot documented in this encounter Additional Health Concerns Assessment Noted Time PHQ-9 Depression Total Score: 7 09/15/19 25 9:02 AM EDT documented as of this encounter Care Teams Party Plan Sales Unit Sales Leader Relationship Specialty Start Date End Date Joyce Tapia MD [address] [place] [id number] PCP - General Family Medicine 06/19/12 documented as of this encounter
--- NOTE | 2025-01-07 15:36 | MHC.OFFVIS ---
Intake Visit Reasons: Newp-B/L hand-RT trigger finger MF PF-limited ROM Intake Note: Nayely 64 yr old right hand dominant female presents today for a new problem visit for her right middle and index finger. States her fingers are catching and locking. Hx of left trigger finger release with Dr Bautista. Also states she has a lump on her dorsum aspect of wrist that is causing pain and discomfort. She is having weakness and has dropped items due to pain. Patient would like to move forward with surgery. Allergies prochlorperazine (From Compazine) Allergy (Severe, Verified 01/07/25 15:42) Seizure Penicillins Allergy (Intermediate, Verified 01/07/25 15:42) HIVES sulfamethoxazole (From BACTRIM) Allergy (Intermediate, Verified 01/07/25 15:42) BLISTERS- DELGADO - NERVE ENDINGS IN HAND/ERYTHEMA MULTIFORM trimethoprim (From BACTRIM) Allergy (Intermediate, Verified 01/07/25 15:42) BLISTERS- DELGADO - NERVE ENDINGS IN HAND/ERYTHEMA MULTIFORM latex (Latex) Allergy (Mild, Verified 01/07/25 15:42) RASH transparent dressing (Tegaderm) Adverse Reaction (Severe, Verified 01/07/25 15:42) Redness of Skin theophylline Adverse Reaction (Intermediate, Verified 01/07/25 15:42) TACHYCARDIA HPI HPI Newp-B/L hand-RT trigger finger MF PF-limited ROM: Details: Nayely 64 yr old right hand dominant female presents today for a new problem visit for her right middle and index finger. States her fingers are catching and locking. Hx of left trigger finger release with Dr Bautista. Also states she has a lump on her dorsum aspect of wrist that is causing pain and discomfort. She is having weakness and has dropped items due to pain. Patient would like to move forward with surgery. NO OTHER ACUTE COMPLAINTS OR CONCERNS AT THIS TIME [facility] Medical History Abscess Abdominal pain Infection of skin due to methicillin resistant Staphylococcus aureus (MRSA) Numbness of right hand COVID-19 Sebaceous cyst Cubital tunnel syndrome on left Contusion of right ankle Numbness and tingling in left hand Left hand pain Stiffness of left hand joint Emesis Overweight (BMI 25.0-29.9) Borderline diabetes Dyslipidemia Non-toxic multinodular goiter Diabetes type 2, controlled History of restless legs syndrome Anxiety Depression High cholesterol Asthma DVT (deep venous thrombosis) GERD (gastroesophageal reflux disease) Anastomotic ulcer Surgical History Hx of colonoscopy H/O removal of cyst (02/03/23) History of removal of cyst (07/28/22) Hx of cholecystectomy History of surgery History of surgery on left wrist Hx of elbow surgery History of excision of epidermal inclusion cyst (03/23/22) Hx of excision of epidermal inclusion cyst (12/25/21) History of excision of mass (10/26/21) S/P trigger finger release History of tooth extraction Hx of hand surgery Hx of esophagogastroduodenoscopy S/P gastric bypass History of hysterectomy Family History Mother Diabetes mellitus CHF (congestive heart failure) Kidney failure Cervical cancer Brother No problems noted. Brother No problems noted. 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 Neuro: Normal sensation of the tips of all digits of the left hand at this time Vascular: Cap refill brisk Pain: Significant tenderness to palpation about the incision site over A1 palmira of the right index finger and middle finger ROM: There is visible and palpable locking and catching of the right index and middle fingers when attempting to make a closed fist and extend fully With encouragement, patient was able to make a closed fist and extend all digits of the left hand fully, but reports some fairly significant discomfort when making a fist in the left index finger Skin: Mass noted of dorsal right wrist consistent with ganglion No lacerations or abrasions. General: No ecchymosis, erythema, or evidence of infection. Psych: Appears grossly normal Affect normal Attitude cooperative Assessment & Plan Assessment & Plan (1) Trigger finger, right middle finger: Code(s): M65.331 - Trigger finger, right middle finger Category: Medical (2) Ganglion cyst of dorsum of right wrist: Code(s): M67.431 - Ganglion, right wrist Category: Medical Plan 1. Right middle finger trigger finger 2. Right wrist dorsal ganglion I educated the patient about the condition. I discussed both operative and nonoperative treatment options. The patient would like to proceed with surgery. The risks and benefits of operative treatment were discussed with the patient and the patient wishes to proceed with surgery. These risks include, but are not limited to, risk of damage to blood vessels, nerves, tendons, infection, recurrence, incomplete relief of preoperative symptoms, persistent pain, possible need for further surgery, and the risks associated with regional blocks and/or anesthesia. Plan is to take the patient to the operating room at some point in the next few weeks for the following procedures: 1. Right dorsal wrist ganglion excision under general 2. Right middle finger trigger release under general All of the preoperative paperwork including the consent was discussed today. All of the patient's questions were answered in the clinic today. The patient understands that they will be in contact with our certified surgical tech/first assistant to discuss scheduling their procedure. Patient reports diabetes, last A1c 6.7 Denies blood thinners, asthma, heart issues, lung issues, kidney issues, or current smoking. Coding Level of Care Code Est Pt Level 4 (72827) Diagnoses Trigger finger, right middle finger M65.331 Ganglion cyst of dorsum of right wrist M67.431
== END 2025-01-07 16:19 | disposition home or self-care (01) ==
LOC: HO.HOS 15:16
DX: M65.331 Trigger finger, right middle finger (principal); M67.431 Ganglion, right wrist
CPT/HCPCS: 99214

== ENCOUNTER → 2025-01-07 15:16 | Outpatient (BNVA) | payer OTHER, SELFPAY | DX: M65.331 Trigger finger, right middle finger (principal); M67.431 Ganglion, right wrist | CPT/HCPCS: 99212 ==

== ENCOUNTER 2025-01-10 09:17 | Outpatient (AMB) | payer OTHER, SELFPAY ==
--- NOTE | 2025-01-10 09:42 | MHC.OFFVIS ---
Intake Visit Reasons: Neuropathy Medication List - Last Reconciled 01/10/25 by Franklin Wagner MD blood sugar diagnostic (FreeStyle Lite Strips) As directed cyanocobalamin (vitamin B-12) 1,000 mcg PO QAM empagliflozin (Jardiance) 10 mg PO QAM esomeprazole magnesium 20 mg PO QAM ferrous sulfate 325 mg PO QAM furosemide 10 mg PO DAILY gabapentin 100 mg PO BID hydrochlorothiazide 12.5 mg PO QAM lancets (Easy Touch Twist Lancets) As directed lidocaine 5% 1 patch topical DAILY meclizine 25 mg PO BID ondansetron HCl 4 mg PO Q12H PRN pantoprazole 40 mg PO QAM pramipexole 0.5 mg PO TID sertraline 100 mg PO BEDTIME sucralfate 1 g PO QID tizanidine 4 mg PO QPM varenicline tartrate mg PO varenicline tartrate ea PO zolpidem 5 mg PO BEDTIME PRN HPI Comments Details: 64 years old right-handed woman with diagnosis of diabetes, status post gastric bypass surgery, chronic back pain treated with oxycodone, carpal tunnel syndrome status post bilateral surgery, and fibromyalgia was here with complaints of bilateral hand stiffness and weakness and headaches. These symptoms were going on for many months. Her fingers and hands were stiffening up and she was seeing Dr. Bautista, hand surgeon, for treatment. She was also complaining of left occipital area pain that typically was triggered by bending her neck in the pain was shooting to the top of her head. She also complain of being anxious nervous and stressed and insomnia with urge to move legs. FORMERLY [facility], [facility] Medical History (Updated 01/10/25 @ 10:12 by Franklin Wagner MD) Edema Fibromyalgia Type 2 diabetes mellitus without complications Neuropathy Review of Systems Const Details: Constitutional:? Complain of fatigue Also complain of difficulty getting to sleep and maintaining sleep an urge to move legs. HEENT:?No headache, vision changes, hearing loss, nasal congestion, sore throat. Cardiovascular:?No chest pain, palpitations, orthopnea, PND, or leg swelling. Respiratory:?No cough, shortness of breath, wheezing, or hemoptysis. Gastrointestinal:? Complain of nausea constipation and diarrhea Genitourinary:? Complain of urinary frequency Musculoskeletal:? Complain of muscle and joint pain, stiffness, back and neck pain and joint swelling Neurological:? Complain of weakness, memory problems, headache, blurred vision, numbness and tingling, loss of balance, dizziness, and confusion. Psychiatric:? Complain of nervous and a depression and stress Endocrine:?No heat/cold intolerance, polydipsia, polyuria, or hair/skin changes. Hematologic/Lymphatic:? Complain of easy bruising. Integumentary (Skin):?No rash, lesions, itching, or color changes. Allergic/Immunologic:?No seasonal allergies, hives, or recurrent infections. Physical Exam Neuro Other: Mental Status: Alert and oriented to person, place, and time. Normal attention. Normal spontaneous speech, fluency, and comprehension. No obvious issues with mood and memory. Affect is appropriate. Cranial Nerves: CN II: Visual tran full to confrontation, visual acuity intact. CN III, IV, : Pupils equal, round, reactive to light and accommodation. Extraocular movements are normal. CN V: Facial sensation is normal. CN VII: Facial movements symmetrical. CN VIII: Hearing intact to bedside conversation is normal. CN IX, X: Palate elevates symmetrically. CN XI: Shoulder shrug and head turn symmetrical. CN XII: Tongue midline without atrophy or fasciculations. Motor: Bulk and tone normal in all extremities. No significant muscle weakness in arms and legs. No drift. Reflexes: Deep tendon reflexes 2+ and symmetric. Plantar response down-going bilaterally. Coordination: [id number] and [id number]-[id number] testing normal. No dysmetria. Gait and Station: No obvious gait abnormality. No ataxia or instability. Sensory: Intact to light touch, pinprick, and vibration. Romberg is negative. Extrapyramidal: Full facial expressions and blinking. No rigidity. Movements are appropriate with no tremor or abnormality. Speech: Normal; no dysarthria or tremor. Office Procedures Nerve Block Details: Procedure was not done at this visit Procedure code (CPT) selection complete (Occipital nerve block for occipital neuralgia) Assessment & Plan Assessment & Plan (1) Occipital neuralgia of left side: Comment: For this type of pain syndrome a local nerve block is a better option. Code(s): M54.81 - Occipital neuralgia Category: Medical (2) Carpal tunnel syndrome: Comment: She already had surgical decompression last year and was being treated for orthopedic issues Code(s): G56.00 - Carpal tunnel syndrome, unspecified upper limb Category: Medical Qualifiers: Laterality: bilateral Qualified Code(s): G56.03 - Carpal tunnel syndrome, bilateral upper limbs (3) Chronic pain syndrome: Code(s): G89.4 - Chronic pain syndrome Category: Medical Plan Impression: 1. Chronic generalized pain syndrome especially back pain treated with opiates 2. Left occipital neuralgia 3. Bilateral hand pain with probably carpal tunnel syndrome Recommendations: 1. EMG nerve conduction study upper extremities 2. Left occipital nerve block Orders: Orders NE nerve conduction velocity Today G56.03 - Carpal tunnel syndrome, bilateral upper limbs NE electromyogram (EMG) Today G56.03 - Carpal tunnel syndrome, bilateral upper limbs Coding Level of Care Code New Pt Level 4 (64780) Diagnoses Occipital neuralgia of left side M54.81 Bilateral carpal tunnel syndrome G56.03 Laterality: bilateral Chronic pain syndrome G89.4
--- OUTSIDE RECORDS SUMMARY | 2025-01-10 09:44 | XMS_ITS | Encounter Summary ---
Author Organization [employer] Address [address] [facility] 7[address] [place] [address] Care Team Providers Care Continuous Wave Operator Name Role Phone Joyce Tapia MD Primary Care Provider [phone] Reason for Visit * Reason Onset Date Comments Med Refill 09/24/2024 Encounter Details Date Type Department Care Team (Late st Contact Info) Description 09/24/2024 Refill [facility] [address] [place], [place] [phone] Joyce Tapia MD [address] [place] [address] Status post surgical removal of nail matrix [...] Description 01/22/2025 9:45 AM EDT Office Visit [facility] [address] [place] [phone] 02/05/2025 9:00 AM EDT Office Visit [facility] [address] [place] [address] Ayden Orellana MD [address] [place] [address] 03/11/2025 11:30 AM EDT Telemedicine [facility] [address] [place] [address] Joyce Tapia MD [address] [place] [address] documented as of this encounter Visit Diagnoses Diagnosis Status post surgical removal of nail matrix of toe of left foot documented in this encounter Additional Health Concerns Assessment Noted Time PHQ-9 Depression Total Score: 7 09/15/19 25 9:02 AM EDT documented as of this encounter Care Teams Continuous Wave Operator Relationship Specialty Start Date End Date Joyce Tapia MD [address] [place] [id number] PCP - General Family Medicine 06/19/12 documented as of this encounter
== END 2025-01-10 10:25 | disposition home or self-care (01) ==
LOC: HO.HSM 09:17
PROVIDERS: PCP Student in an Organized Health Care Education/Training Program; Visit Provider Psychiatry & Neurology Neurology
DX: M54.81 Occipital neuralgia (principal); G56.03 Carpal tunnel syndrome, bilateral upper limbs; G89.4 Chronic pain syndrome
CPT/HCPCS: 99204

== ENCOUNTER → 2025-01-10 09:17 | Outpatient (BNVA) | payer OTHER, SELFPAY | PROVIDERS: PCP Student in an Organized Health Care Education/Training Program; Visit Provider Psychiatry & Neurology Neurology | DX: M54.81 Occipital neuralgia (principal); G56.03 Carpal tunnel syndrome, bilateral upper limbs; G89.4 Chronic pain syndrome | CPT/HCPCS: 99202 ==

== ENCOUNTER → 2025-01-17 11:06 | Outpatient (BNV) | payer OTHER, SELFPAY | PROVIDERS: PCP Student in an Organized Health Care Education/Training Program; Visit Provider Psychiatry & Neurology Neurology | DX: G56.03 Carpal tunnel syndrome, bilateral upper limbs (principal) | CPT/HCPCS: 95886; 95913 ==

== ENCOUNTER 2025-01-17 11:12 | Outpatient (REF) | payer OTHER, SELFPAY ==
--- NOTE | 2025-01-17 11:06 | EMG_ITS ---
Please see the attached neurophysiology report MTDD
--- OUTSIDE RECORDS SUMMARY | 2025-01-17 12:02 | XMS_ITS | Encounter Summary ---
Author Organization [employer] Address [address] [facility] 7t [place] [address] Care Team Providers Care Cardiac Technologist Name Role Phone Joyce Tapia MD Primary Care Provider [phone] Reason for Visit * Reason Onset Date Comments Med Refill 09/24/2024 Encounter Details Date Type Department Care Team (Late st Contact Info) Description 09/24/2024 Refill [facility] [address] [place], [place] [phone] Joyce Tapia MD [address] [place] [address] Status post surgical removal of nail matrix [...] Description 01/22/2025 9:45 AM EDT Office Visit [facility] [address] [place] [phone] 02/05/2025 9:00 AM EDT Office Visit [facility] MED & PEDS [address] [place] [address] Ayden Orellana MD [address] [place] [address] 03/11/2025 11:30 AM EDT Telemedicine [facility] MED & PEDS [address] [place] [address] Joyce Tapia MD [address] [place] [address] documented as of this encounter Visit Diagnoses Diagnosis Status post surgical removal of nail matrix of toe of left foot documented in this encounter Additional Health Concerns Assessment Noted Time PHQ-9 Depression Total Score: 7 09/15/19 25 9:02 AM EDT documented as of this encounter Care Teams Cardiac Technologist Relationship Specialty Start Date End Date Joyce Tapia MD [address] [place] [id number] PCP - General Family Medicine 06/19/12 documented as of this encounter
== END 2025-01-17 11:13 | disposition home or self-care (01) ==
LOC: HO.NEURO 11:12
PROVIDERS: PCP Student in an Organized Health Care Education/Training Program; Visit Provider Psychiatry & Neurology Neurology
DX: G56.03 Carpal tunnel syndrome, bilateral upper limbs (principal)
CPT/HCPCS: 95886; 95913

== ENCOUNTER 2025-01-23 10:15 | Outpatient (REF) | payer MEDICAID, SELFPAY ==
--- NOTE | ~2025-01-23 | US_ITS ---
EXAMINATION: US LOWER EXTREMITY VENOUS (REFLUX EXAM), BILATERAL CLINICAL INFORMATION: Varices. Posttreatment changes, left greater saphenous vein. COMPARISON: August 10, 2023. TECHNIQUE: Color flow triplex imaging and compression Doppler was performed to evaluate both the deep and the superficial systems bilaterally. To evaluate the superficial system, the examination was performed in the upright position. Color-flow Doppler ultrasound and compression ultrasound were utilized. In addition, maneuvers were utilized to demonstrate reflux. FINDINGS: 1. DEEP VENOUS ULTRASOUND OF THE RIGHT LOWER EXTREMITY: Common Femoral Vein: Compressible, normal respiratory variation and augmented flow. Femoral Vein: Compressible, normal color flow and augmentation. Popliteal Vein: Compressible, normal augmentation. Deep Reflux: There is no evidence of reflux in the deep system in either the common femoral vein, superficial femoral or the popliteal vein. There is no evidence of a Freeman's cyst. 2. SUPERFICIAL ULTRASOUND WITH DOPPLER OF RIGHT LOWER EXTREMITY: GREAT SAPHENOUS VEIN: Saphenofemoral Junction: 0.6 cm; Reflux: 0 ms Proximal Thigh: 0.5 cm; Reflux: 0 ms Mid Thigh: 0.2 cm; Reflux: 0 ms Distal Thigh: 0.3 cm; Reflux: 0 ms At Knee: 0.2 cm; Reflux: 0 ms Proximal Calf: 0.2 cm; Reflux: 0 ms Mid Calf: 0.2 cm; Reflux: 0 ms Distal Calf: 0.2 cm; Reflux: 0 ms DUPLICATED MEDIAL GREAT SAPHENOUS VEIN: Diameter: 0.3 cm. Reflux: NA DUPLICATED LATERAL GREAT SAPHENOUS VEIN: Diameter: None imaged Reflux: NA SMALL SAPHENOUS VEIN: Saphenopopliteal Junction: 0.2 cm; Reflux: 0 ms Proximal: 0.2 cm; Reflux: 0 ms Distal: 0.2 cm; Reflux: 0 ms VEIN OF GIACOMINI: Size: NA Reflux: NA PERFORATORS: Location: Proximal to mid calf. Size: 0.3-0.2 cm. Reflux: NA VARICOSITIES: Location: None imaged. Size: NA Reflux: NA 3. DEEP VENOUS ULTRASOUND OF THE LEFT LOWER EXTREMITY: Common Femoral Vein: Compressible, normal respiratory variation and augmented flow. Femoral Vein: Compressible, normal color flow and augmentation. Popliteal Vein: Compressible, normal augmentation. Deep Reflux: There is no evidence of reflux in the deep system in either the common femoral vein, superficial femoral or the popliteal vein. There is no evidence of a Freeman's cyst. 4. SUPERFICIAL ULTRASOUND WITH DOPPLER OF LEFT LOWER EXTREMITY: GREAT SAPHENOUS VEIN: Saphenofemoral Junction: 0.6 cm; Reflux: 0 ms Proximal Thigh: 0.3 cm; Reflux: 0 ms Mid Thigh: Not seen. Distal Thigh: Not seen. At Knee: Not seen. Proximal Calf: Not seen. Mid Calf: Not seen. Distal Calf: Not seen. DUPLICATED MEDIAL GREAT SAPHENOUS VEIN: Diameter: None imaged Reflux: NA DUPLICATED LATERAL GREAT SAPHENOUS VEIN: Diameter: None imaged. Reflux: NA SMALL SAPHENOUS VEIN: Saphenopopliteal Junction: 0.2 cm; Reflux: 0 ms Proximal: 0.2 cm; Reflux: 0 ms Distal: 0.2 cm; Reflux: 0 ms VEIN OF GIACOMINI: Size: NA Reflux: NA PERFORATORS: Location: Distal thigh. Proximal calf and distal calf. Size: 0.2 cm. Reflux: NA VARICOSITIES: Location: None Imaged Size: NA Reflux: NA US/US venous insuf bilat IMPRESSION: Right: No venous insufficiency. Perforators without reflux, proximal to mid calf. Left: No venous insufficiency. Perforators without reflux, distal thigh and proximal and distal calf. Electronically signed by: Benjamin Fam MD 01/23/2025 11:37 AM EDT
--- OUTSIDE RECORDS SUMMARY | 2025-01-23 11:15 | XMS_ITS | Encounter Summary ---
Author Organization [employer] Address [address] [facility] 7t [place] [address] Care Team Providers Care Supervising Law Enforcement Analyst Name Role Phone Joyce Tapia MD Primary Care Provider [phone] Reason for Visit * Reason Onset Date Comments Med Refill 09/24/2024 Encounter Details Date Type Department Care Team (Late st Contact Info) Description 09/24/2024 Refill [facility] [address] [place], [place] [phone] Joyce Tapia MD [address] [place] [address] Status post surgical removal of nail matrix [...] Care Team (Late st Contact Info) Description 01/25/2025 3:00 PM EDT Medication Management [facility] [address] [place] [address] Cristal Muhammad, PharmD [address] [place] [address] 02/05/2025 9:00 AM EDT Office Visit [facility] [address] [place] [address] Ayden Orellana MD [address] [place] [address] 03/11/2025 11:30 AM EDT Telemedicine [facility] [address] [place] [address] Joyce Tapia MD [address] [place] [address] documented as of this encounter Visit Diagnoses Diagnosis Status post surgical removal of nail matrix of toe of left foot documented in this encounter Additional Health Concerns Assessment Noted Time PHQ-9 Depression Total Score: 7 09/15/19 25 9:02 AM EDT documented as of this encounter Care Teams Supervising Law Enforcement Analyst Relationship Specialty Start Date End Date Joyce Tapia MD [address] [place] [phone] PCP - General Family Medicine 06/19/12 documented as of this encounter
== END 2025-01-23 10:16 | disposition home or self-care (01) ==
LOC: HO.US 10:15
PROVIDERS: PCP Student in an Organized Health Care Education/Training Program; Visit Provider Student in an Organized Health Care Education/Training Program
DX: R60.0 Localized edema (principal)
CPT/HCPCS: 93970

== ENCOUNTER → 2025-01-23 10:19 | Outpatient (BNV) | payer MEDICAID, SELFPAY | PROVIDERS: PCP Student in an Organized Health Care Education/Training Program; Visit Provider Radiology Diagnostic Radiology | DX: I83.893 Varicose veins of bilateral lower extremities with other complications (principal) | CPT/HCPCS: 93970 ==

== ENCOUNTER 2025-01-26 13:52 | Outpatient (REF) | payer MEDICAID, SELFPAY ==
[2025-01-26 15:32] LABS: Bacterial Vaginosis PCR NEGATIVE (Negative); Candida Group PCR DETECTED (Not Detect); Candida glab krusei PCR NOT DETECTED (Not Detect); Trichomonas vaginalis PCR NOT DETECTED (Not Detect)
[2025-01-26 16:04] LABS: CT PCR NOT DETECTED (Not Detect.); NG PCR NOT DETECTED (Not Detect.)
== END 2025-01-26 13:53 | disposition home or self-care (01) ==
LOC: HO.HHCLNP 13:52
PROVIDERS: Visit Provider Family Medicine
DX: N90.89 Other specified noninflammatory disorders of vulva and perineum (principal)
CPT/HCPCS: 81515; 87491; 87591

== ENCOUNTER 2025-01-31 05:34 | Day surgery (SDC) | payer MEDICAID, SELFPAY ==
--- OUTSIDE RECORDS SUMMARY | 2025-01-15 15:28 | XMS_ITS | Encounter Summary ---
Author Organization [employer] Address [address] [facility] 7t [place] [address] Care Team Providers Care Hammersmith Helper Name Role Phone Joyce Tapia MD Primary Care Provider [phone] Reason for Visit * Reason Onset Date Comments Med Refill 09/24/2024 Encounter Details Date Type Department Care Team (Late st Contact Info) Description 09/24/2024 Refill [facility] [address] [place], [place] [phone] Joyce Tapia MD [address] [place] [address] Status post surgical removal of nail matrix [...] Description 01/22/2025 9:45 AM EDT Office Visit [facility] [address] [place] [address] 02/05/2025 9:00 AM EDT Office Visit [facility] MED [facility] PEDS [address] [place] [address] Ayden Orellana MD [address] [place] [address] 03/11/2025 11:30 AM EDT Telemedicine [facility] MED [facility] P[facility] [address] [place] [address] Joyce Tapia MD [address] [place] [address] documented as of this encounter Visit Diagnoses Diagnosis Status post surgical removal of nail matrix of toe of left foot documented in this encounter Additional Health Concerns Assessment Noted Time PHQ-9 Depression Total Score: 7 09/15/19 25 9:02 AM EDT documented as of this encounter Care Teams Hammersmith Helper Relationship Specialty Start Date End Date Joyce Tapia MD [address] [place] [id number] PCP - General Family Medicine 06/19/12 documented as of this encounter
[2025-01-18 13:04] VITALS: BMI 26.9
--- NOTE | 2025-01-30 08:55 | HO.ANESPROP2 ---
Documented by User: Daily Aburto NP 01/30/25 08:58 HPI - Anesthesia Eval Consult details Narrative: 64yo F for Right Dorsal wrist Ganglion Excision, Middle Finger Trigger Release Anesthesia Pre-Procedure Meds Is the patient on any of the following meds?: SGLT2 Inhib PMFSH Active Problems Active Problems: All Active Problems Chronic pain syndrome (Acute) Carpal tunnel syndrome (Acute) Occipital neuralgia of left side (Acute) Ganglion cyst of dorsum of right wrist (Acute) Trigger finger, right middle finger (Acute) Trigger finger, right index finger (Acute) Dupuytren's disease of palm of left hand (Acute) Trigger finger, left index finger (Acute) Intractable low back pain (Acute) Diarrhea (Acute) Rectal pain (Acute) Pelvic pain (Acute) Chronic pain syndrome (Acute) Disc degeneration, lumbar (Acute) Facet arthropathy, lumbar (Acute) Spondylosis of lumbar region without myelopathy or radiculopathy (Acute) Chronic left SI joint pain (Acute) Dog bite (Acute) SI (sacroiliac) joint dysfunction (Acute) Osteoarthritis of left knee (Acute) Pes anserinus bursitis of left knee (Acute) Tubular adenoma (Acute) Diverticulosis (Acute) Left lateral epicondylitis (Acute) Posterior neck pain (Acute) COVID-19 (Acute) Low back pain (Acute) Tendonitis of left hip flexor (Acute) Osteoarthritis of left hip (Acute) Trigger thumb, right thumb (Acute) Varicose veins of right lower extremity with inflammation (Acute) Nausea and vomiting (Acute) Chronic diarrhea (Acute) Carpal tunnel syndrome of right wrist (Acute) Ganglion cyst of dorsum of left wrist (Acute) Carpal tunnel syndrome of left wrist (Acute) Hidradenitis suppurativa (Acute) Trigger finger, left ring finger (Acute) Trigger finger, left middle finger (Acute) Epidermal inclusion cyst (Acute) Fibromyalgia (Acute) Abscess (Acute) Abdominal pain (Acute) GERD (gastroesophageal reflux disease) (Acute) Asthma (Acute) Dyslipidemia (Acute) Non-toxic multinodular goiter (Acute) Diabetes type 2, controlled (Acute) Anastomotic ulcer (Acute) S/P gastric bypass (Acute) Past Medical History Medical History Hidradenitis suppurativa Edema Fibromyalgia Type 2 diabetes mellitus without complications Neuropathy Abscess Abdominal pain Infection of skin due to methicillin resistant Staphylococcus aureus (MRSA) Numbness of right hand COVID-19 Sebaceous cyst Cubital tunnel syndrome on left Contusion of right ankle Numbness and tingling in left hand Left hand pain Stiffness of left hand joint Emesis Overweight (BMI 25.0-29.9) Borderline diabetes Dyslipidemia Non-toxic multinodular goiter Diabetes type 2, controlled History of restless legs syndrome Anxiety Depression High cholesterol Asthma DVT (deep venous thrombosis) GERD (gastroesophageal reflux disease) Anastomotic ulcer Family History Family History Mother Diabetes mellitus CHF (congestive heart failure) Kidney failure Cervical cancer Brother No problems noted. Brother No problems noted. Family history of problems with anesthesia: No Surgical History Surgical History Hx of colonoscopy H/O removal of cyst (02/03/23) History of removal of cyst (07/28/22) Hx of cholecystectomy History of surgery History of surgery on left wrist Hx of elbow surgery History of excision of epidermal inclusion cyst (03/23/22) Hx of excision of epidermal inclusion cyst (12/25/21) History of excision of mass (10/26/21) S/P trigger finger release History of tooth extraction Hx of hand surgery Hx of esophagogastroduodenoscopy S/P gastric bypass History of hysterectomy History of Problems with Anesthesia: No Social History Social History Household Members: Spouse Housing: Apartment Are you a primary care administrative tech to a significant other at home: No Do you presently have visiting nurse or other home services: No Unable to assess alcohol history related to: Unknown Alcohol intake: former Patient Tobacco Use Status: Current everyday Tobacco user Tobacco use type: Cigarette Cigarette Packs Per Day: 0 Cigarettes Per Day: 2 Years Smoked: 30 Smoked in Last 30 Days: Yes Use of substances other than those prescribed or required for medical reasons: No Have you been hit, kicked, punched, or otherwise hurt by someone within the past year? 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 Meds Allergies Allergy/AdvReac Type Severity Reaction Status Date / Time prochlorperazine (From Allergy Severe Seizure Verified 01/18/25 13:04 Compazine) sulfamethoxazole (From Allergy Severe BLISTERS- Verified 01/18/25 13:04 BACTRIM) DELGADO - NERVE ENDINGS IN HAND/ERYTHEMA MULTIFORM trimethoprim (From BACTRIM) Allergy Severe BLISTERS- Verified 01/18/25 13:04 DELGADO - NERVE ENDINGS IN HAND/ERYTHEMA MULTIFORM Penicillins Allergy Intermediate HIVES Verified 01/18/25 13:04 latex (Latex) Allergy Mild RASH Verified 01/18/25 13:04 transparent dressing AdvReac Severe Redness of Verified 01/18/25 13:04 (Tegaderm) Skin theophylline AdvReac Intermediate TACHYCARDIA Verified 01/18/25 13:04 Home Medications ?Medication ?Instructions ?Recorded ?Confirmed ?Last Taken ?Type hydroxyzine HCl 25 mg tablet 50 mg PO BEDTIME 06/04/20 01/18/25 10/01/24 History sertraline 100 mg tablet 1 tab PO BEDTIME 10/20/21 01/18/25 10/01/24 History tizanidine 4 mg tablet 1 tab PO BEDTIME PRN Pain 10/20/21 01/18/25 10/13/22 History cyanocobalamin (vitamin B-12) 1,000 mcg PO QAM 06/03/22 01/18/25 10/01/24 History 1,000 mcg tablet metformin 500 mg tablet,extended 500 mg PO BID 06/03/22 01/18/25 10/01/24 History release 24 hr albuterol sulfate 90 mcg/actuation 2 puff inhalation Q4-6H PRN 08/25/23 01/18/25 10/01/24 History aerosol inhaler Shortness Of Breath Or Wheezing oxycodone 5 mg tablet 5 mg PO Q6H PRN severe pain 09/27/23 01/18/25 Unknown History pramipexole 0.5 mg tablet 0.5 mg PO TID 09/27/23 01/18/25 Unknown History ferrous sulfate 325 mg (65 mg 325 mg PO QAM 10/27/23 01/18/25 07/17/24 History iron) tablet varenicline tartrate 1 mg tablet 1 mg PO BID 04/24/24 01/18/25 Unknown History blood sugar diagnostic (FreeStyle #10 ea 01/10/25 01/10/25 Unknown History Lite Strips) empagliflozin 10 mg tablet 10 mg PO QAM 01/10/25 01/18/25 01/27/25 History (Jardiance) esomeprazole magnesium 20 mg 20 mg PO QAM 01/10/25 01/18/25 Unknown History capsule,delayed release furosemide 20 mg tablet 10 mg PO DAILY 01/10/25 01/18/25 Unknown History gabapentin 100 mg capsule 100 mg PO BID 01/10/25 01/18/25 Unknown History hydrochlorothiazide 12.5 mg capsule 12.5 mg PO QAM 01/10/25 01/18/25 Unknown History lancets 33 gauge (Easy Touch Twist #100 ea 01/10/25 01/10/25 Unknown History Lancets) ondansetron HCl 4 mg tablet 4 mg PO Q12H PRN nausea/vomiting 01/10/25 01/18/25 Unknown History pantoprazole 40 mg tablet,delayed 40 mg PO QAM 01/10/25 01/18/25 Unknown History release sucralfate 1 gram tablet 1 g PO QID 01/10/25 01/18/25 Unknown History zolpidem 5 mg tablet 5 mg PO BEDTIME PRN insomnia 01/10/25 01/18/25 Unknown History Chantix 01/31/25 01/31/25 Unknown History Exam Height,Weight and Vital Signs: Height 5 ft 3 in Weight 68.946 kg Pertinent Lab Results Pertinent Lab Results: Laboratory Tests 01/06/25 20:46 WBC 8.2 Hgb 13.5 Hct 39.4 Plt Count 199 Sodium 146 H Potassium 3.8 Chloride 111 H Carbon Dioxide 28 BUN 13 Creatinine 0.98 Narrative Narrative: EKG 12/2024 Vent. Rate : 72 BPM Atrial Rate : 72 BPM P-R Int : 160 ms QRS Dur : 70 ms QT Int : 370 ms P-R-T Axes : 45 34 20 degrees QTcB Int : 405 ms Normal sinus rhythm Normal ECG When compared with ECG of 20-Aug-2024 19:00, No significant change was found Assessment and Plan Assessment Anesthesia Assessment: Chart Reviewed Final Anesthetic Review Family History of Problems with Anesthesia: No History of Problems with Anesthesia: No Documented by User: Lucinda Flores MD 01/31/25 07:34 [facility] Past Medical History Medical History Hidradenitis suppurativa Edema Fibromyalgia Type 2 diabetes mellitus without complications Neuropathy Abscess Abdominal pain Infection of skin due to methicillin resistant Staphylococcus aureus (MRSA) Numbness of right hand COVID-19 Sebaceous cyst Cubital tunnel syndrome on left Contusion of right ankle Numbness and tingling in left hand Left hand pain Stiffness of left hand joint Emesis Overweight (BMI 25.0-29.9) Borderline diabetes Dyslipidemia Non-toxic multinodular goiter Diabetes type 2, controlled History of restless legs syndrome Anxiety Depression High cholesterol Asthma DVT (deep venous thrombosis) GERD (gastroesophageal reflux disease) Anastomotic ulcer Family History Family History Mother Diabetes mellitus CHF (congestive heart failure) Kidney failure Cervical cancer Brother No problems noted. Brother No problems noted. Surgical History Surgical History Hx of colonoscopy H/O removal of cyst (02/03/23) History of removal of cyst (07/28/22) Hx of cholecystectomy History of surgery History of surgery on left wrist Hx of elbow surgery History of excision of epidermal inclusion cyst (03/23/22) Hx of excision of epidermal inclusion cyst (12/25/21) History of excision of mass (10/26/21) S/P trigger finger release History of tooth extraction Hx of hand surgery Hx of esophagogastroduodenoscopy S/P gastric bypass History of hysterectomy Social History Social History Household Members: Spouse Housing: Apartment Are you a primary care administrative tech to a significant other at home: No Do you presently have visiting nurse or other home services: No Unable to assess alcohol history related to: Unknown Alcohol intake: former Patient Tobacco Use Status: Current everyday Tobacco user Tobacco use type: Cigarette Cigarette Packs Per Day: 0 Cigarettes Per Day: 2 Years Smoked: 30 Smoked in Last 30 Days: Yes Use of substances other than those prescribed or required for medical reasons: No Have you been hit, kicked, punched, or otherwise hurt by someone within the past year? 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 Meds Allergies Allergy/AdvReac Type Severity Reaction Status Date / Time prochlorperazine (From Allergy Severe Seizure Verified 01/18/25 13:04 Compazine) sulfamethoxazole (From Allergy Severe BLISTERS- Verified 01/18/25 13:04 BACTRIM) DELGADO - NERVE ENDINGS IN HAND/ERYTHEMA MULTIFORM trimethoprim (From BACTRIM) Allergy Severe BLISTERS- Verified 01/18/25 13:04 DELGADO - NERVE ENDINGS IN HAND/ERYTHEMA MULTIFORM Penicillins Allergy Intermediate HIVES Verified 01/18/25 13:04 latex (Latex) Allergy Mild RASH Verified 01/18/25 13:04 transparent dressing AdvReac Severe Redness of Verified 01/18/25 13:04 (Tegaderm) Skin theophylline AdvReac Intermediate TACHYCARDIA Verified 01/18/25 13:04 Home Medications ?Medication ?Instructions ?Recorded ?Confirmed ?Last Taken ?Type hydroxyzine HCl 25 mg tablet 50 mg PO BEDTIME 06/04/20 01/18/25 10/01/24 History sertraline 100 mg tablet 1 tab PO BEDTIME 10/20/21 01/18/25 10/01/24 History tizanidine 4 mg tablet 1 tab PO BEDTIME PRN Pain 10/20/21 01/18/25 10/13/22 History cyanocobalamin (vitamin B-12) 1,000 mcg PO QAM 06/03/22 01/18/2510/01/25 History 1,000 mcg tablet metformin 500 mg tablet,extended 500 mg PO BID 06/03/22 01/18/25 10/01/24 History release 24 hr albuterol sulfate 90 mcg/actuation 2 puff inhalation Q4-6H PRN 08/25/23 01/18/25 10/01/24 History aerosol inhaler Shortness Of Breath Or Wheezing oxycodone 5 mg tablet 5 mg PO Q6H PRN severe pain 09/27/23 01/18/25 Unknown History pramipexole 0.5 mg tablet 0.5 mg PO TID 09/27/23 01/18/25 Unknown History ferrous sulfate 325 mg (65 mg 325 mg PO QAM 10/27/23 01/18/25 07/17/24 History iron) tablet varenicline tartrate 1 mg tablet 1 mg PO BID 04/24/24 01/18/25 Unknown History blood sugar diagnostic (FreeStyle #10 ea 01/10/25 01/10/25 Unknown History Lite Strips) empagliflozin 10 mg tablet 10 mg PO QAM 01/10/25 01/18/25 01/27/25 History (Jardiance) esomeprazole magnesium 20 mg 20 mg PO QAM 01/10/25 01/18/25 Unknown History capsule,delayed release furosemide 20 mg tablet 10 mg PO DAILY 01/10/25 01/18/25 Unknown History gabapentin 100 mg capsule 100 mg PO BID 01/10/25 01/18/25 Unknown History hydrochlorothiazide 12.5 mg capsule 12.5 mg PO QAM 01/10/25 01/18/25 Unknown History lancets 33 gauge (Easy Touch Twist #100 ea 01/10/25 01/10/25 Unknown History Lancets) ondansetron HCl 4 mg tablet 4 mg PO Q12H PRN nausea/vomiting 01/10/25 01/18/25 Unknown History pantoprazole 40 mg tablet,delayed 40 mg PO QAM 01/10/25 01/18/25 Unknown History release sucralfate 1 gram tablet 1 g PO QID 01/10/25 01/18/25 Unknown History zolpidem 5 mg tablet 5 mg PO BEDTIME PRN insomnia 01/10/25 01/18/25 Unknown History Chantix 07/31/25 07/31/25 Unknown History Exam Airway Mallampati Class: I TM Dist: >3cm Neck ROM: Full Denture: Upper and Lower Heart: rrr Lungs: cta Assessment and Plan Assessment Anesthesia Assessment: Anesthesia Plan Discussed Final Anesthetic Review NPO: Yes ASA Class: III Final Preanesthetic Review: No Changes in Pt Med Stat, Meds/Allgs Chart Reviewed, Consent Obtained/Reviewed and Anes Risks/Benef Reviewed Patient Risk: Intermediate Procedure Risk: Intermediate Anesthetic Plan Anesthetic Plan: GA and Agree w/ Assess. and Plan
[2025-01-31 06:18] VITALS: BMI 27.6
[2025-01-31 06:31] VITALS: BP 102/53; PULSE 70; RESP 16; TEMP 36.2; O2SAT 96
[2025-01-31 06:49] LABS: Glucose, Whole Blood 137 mg/dL (60-115)
[2025-01-31] MEDS: Lactated Ringers 1,000 ML 100 ML IVCONT (06:52)
--- NOTE | 2025-01-31 08:00 | P.OP_ITS ---
Operative Note Operative Note Date of Service: 01/31/25 Narrative: Operative Note Narrative: Preop diagnosis: 1. Right dorsal wrist ganglion 2. Right middle finger trigger finger Postop diagnosis: Same Procedure: 1. Right dorsal wrist ganglion excisional biopsy 2. Right middle finger trigger release Surgeon: Jessy Bautista MD Trolley Collector: Ok NICHOLS Anesthesia: General Findings: 1. A very small Right dorsal wrist ganglion approximately 3 cm diameter sitting a top Cristobal's tubercle penetrating the extensor retinaculum in this area, filled with a small amount of clear viscous fluid consistent with a ganglion Tourniquet time: 17 minutes EBL: 5.0 ml Specimen: dorsal wrist ganglion Drains: None Complications: None Disposition: Brought to the recovery room in stable condition Plan: Follow-up in 10-14 days for wound check, suture removal and to check pathology Indications: The patient is 64 years old with a a right dorsal wrist ganglion and right middle finger trigger finger that have been unresponsive to nonoperative management. The risks and benefits of operative treatment, including but not limited to risk of damage to blood vessels, nerves, tendons, infection, recurrence, persistent pain or numbness, or need for further surgery were discussed with the patient and they wished to proceed with surgery. Procedure: Once consent was obtained patient was brought back to the operating suite and placed in the operating table in a supine position. Perioperative antibiotics and anesthesia was administered by the anesthesia team. A tourniquet was applied to the proximal aspect of the right upper extremity and the limb was prepped and draped in a standard surgical fashion. The limb was elevated exsanguinated with Esmarch bandage and the tourniquet inflated to 250 mm of mercury for a total tourniquet time of 17 minutes. Once assured that we had a good block, a 1.5 cm oblique incision was made centered over the A1 palmira of the right middle finger . The incision was made through the skin to the subcutaneous tissues using a #15 blade. Careful dissection was made down to the level of the A1 palmira using tenotomy scissors, with care being taken to protect the nearby neurovascular structures. A longitudinal incision was made in the A1 palmira 1st using a #15 blade, then using tenotomy scissors under direct visualization. The A1 palmira was noted to be thickened. Following our A1 palmira release, we no longer saw any locking or catching of the digit with flexion and extension. A 1.5 cm longitudinal incision was made over the dorsal radial aspect of the right wrist, centered over the dorsal wrist ganglion. Ganglion was located a top Cristobal's tubercle penetrating the extensor retinaculum. The incision was made with a #15 blade through the skin to the subcutaneous tissues. Tenotomy scissors were then used to carefully dissect down through the subcutaneous layer to the dorsal wrist ganglion. It measured approximately 2-3 mm in diameter and was filled with clear viscous fluid consistent with a ganglion. It sat a top the Cristobal's tubercle and was just penetrating the extensor retinaculum. It was carefully mobilized from the surrounding soft tissues using tenotomy and iris scissors. It was cut free and removed to the back table to be sent for histopathologic review. No further masses were identified. At this point the tourniquet was deflated and hemostasis obtained with a brief period of local pressure . The wounds were irrigated with normal saline. The skin edges were reapproximated with some 5-0 Prolene suture. The wound was infiltrated with some 1% lidocaine with epinephrine for postop pain control and a sterile dressing was applied. The patient appears to have tolerated the procedure well and with no complications. All digits were well vascularized conclusion of the case.
--- NOTE | 2025-01-31 08:00 | MHC.SHP ---
Pre-Procedural Eval Section A - 24 Hr Update-Section A only Date of Service: 01/31/25 The patient is an INPATIENT: No Changes since office visit: No Cold of Flu in the past 2 weeks, No New Medical Problems, No Changes in Medication and No Patient answered all questions The patient has been examined within 24 hours of the surgical procedure. The History & Physical has been completed within 30 days and I have reviewed it.: Yes Section B - Complete if H&P > 30 days Chief Complaint: trigger finger,ganglion right wrist Allergies: Allergies Allergy/AdvReac Type Severity Reaction Status Date / Time prochlorperazine (From Allergy Severe Seizure Verified 01/18/25 13:04 Compazine) sulfamethoxazole (From Allergy Severe BLISTERS- Verified 01/18/25 13:04 BACTRIM) DELGADO - NERVE ENDINGS IN HAND/ERYTHEMA MULTIFORM trimethoprim (From BACTRIM) Allergy Severe BLISTERS- Verified 01/18/25 13:04 DELGADO - NERVE ENDINGS IN HAND/ERYTHEMA MULTIFORM Penicillins Allergy Intermediate HIVES Verified 01/18/25 13:04 latex (Latex) Allergy Mild RASH Verified 01/18/25 13:04 transparent dressing AdvReac Severe Redness of Verified 01/18/25 13:04 (Tegaderm) Skin theophylline AdvReac Intermediate TACHYCARDIA Verified 01/18/25 13:04 Plan I have reviewed the history and physical and performed a pertinent physical examination on my patient. No changes have occurred unless specified. Time Spent With Patient Time: Total time managing care of this patient today ____ minutes.
[2025-01-31 09:00] VITALS: BP 118/68; PULSE 69; RESP 12; TEMP 36.1; O2SAT 97
[2025-01-31 09:05] VITALS: BP 125/70; PULSE 71; RESP 12; O2SAT 99
[2025-01-31 09:10] VITALS: BP 126/64; PULSE 71; RESP 12; O2SAT 95
[2025-01-31 09:15] VITALS: BP 115/61; PULSE 71; RESP 12; O2SAT 92
[2025-01-31 09:30] VITALS: BP 110/69; PULSE 66; RESP 12; O2SAT 91
== END 2025-01-31 10:12 | disposition home or self-care (01) ==
PROVIDERS: PCP Student in an Organized Health Care Education/Training Program; Visit Provider Orthopaedic Surgery
PROC: (CPT 26055; principal; 2025-01-31 07:30)
PROC: (CPT 26055; 2025-01-31 07:30)
DX: M65.331 Trigger finger, right middle finger (principal); M67.431 Ganglion, right wrist; G89.4 Chronic pain syndrome; M79.7 Fibromyalgia; R20.0 Anesthesia of skin; E11.9 Type 2 diabetes mellitus without complications; E78.00 Pure hypercholesterolemia, unspecified; J45.909 Unspecified asthma, uncomplicated; Z79.84 Long term (current) use of oral hypoglycemic drugs; Z79.899 Other long term (current) drug therapy; Z88.0 Allergy status to penicillin; Z88.2 Allergy status to sulfonamides; Z91.040 Latex allergy status; Z98.84 Bariatric surgery status; Z98.890 Other specified postprocedural states; Z87.891 Personal history of nicotine dependence
CPT/HCPCS: 26055; 25111; 82947; 88304; J0131; J0690; J1100; J2003; J2004; J2250; J2405; J2704; J2795; J3010

== ENCOUNTER → 2025-01-31 05:34 | Outpatient (BNV) | payer MEDICAID, SELFPAY | PROVIDERS: PCP Student in an Organized Health Care Education/Training Program; Visit Provider Orthopaedic Surgery | DX: M67.431 Ganglion, right wrist (principal); M65.331 Trigger finger, right middle finger | CPT/HCPCS: 25111; 26055 ==

== ENCOUNTER 2025-02-13 10:48 | Outpatient (AMB) | payer MEDICAID, SELFPAY ==
[2025-02-13 10:55] VITALS: BMI 27.5
--- NOTE | 2025-02-13 10:55 | MHC.OFFVIS ---
Vital Signs 02/13/25 10:55 Height 5 ft 3 in Weight 155 lb BMI 27.5 Intake Visit Reasons: PO-Rt MF Trigger, Ganglion Exc 01/31/25 Intake Note: Nayely is a 64 year old right hand dominant female who presents today for their first post-operative visit status post right middle trigger finger release & right dorsal wrist ganglion excision, DOS: 01/31/[address] Bautista. Patient reports today she had a nurse change her dressing because the one done at the hospital was too tight. She is in a lot of pain, tender to touch, and still experiencing locking and catching. She is taking Tylenol and Percocet without relief of pain. She is having a hard time making a full fist. Allergies prochlorperazine (From Compazine) Allergy (Severe, Verified 02/13/25 10:56) Seizure sulfamethoxazole (From BACTRIM) Allergy (Severe, Verified 02/13/25 10:56) BLISTERS- DELGADO - NERVE ENDINGS IN HAND/ERYTHEMA MULTIFORM trimethoprim (From BACTRIM) Allergy (Severe, Verified 02/13/25 10:56) BLISTERS- DELGADO - NERVE ENDINGS IN HAND/ERYTHEMA MULTIFORM Penicillins Allergy (Intermediate, Verified 02/13/25 10:56) HIVES latex (Latex) Allergy (Mild, Verified 02/13/25 10:56) RASH transparent dressing (Tegaderm) Adverse Reaction (Severe, Verified 02/13/25 10:56) Redness of Skin theophylline Adverse Reaction (Intermediate, Verified 02/13/25 10:56) TACHYCARDIA HPI HPI PO-Rt MF Trigger, Ganglion Exc 01/31/25: Details: Nayely is a 64 year old right hand dominant female who presents today for their first post-operative visit status post right middle trigger finger release & right dorsal wrist ganglion excision, DOS: 01/31/[address] Bautista. Patient reports today she had a nurse change her dressing because the one done at the hospital was too tight. She is in a lot of pain, feels a burning sensation to touch adjacent to the incision site on the dorsum of the right wrist, and reports that she feels she may still be experiencing catching of the right middle finger. She is taking Tylenol and Percocet without relief of pain. She is having a hard time making a full fist. [facility] Medical History Hidradenitis suppurativa Edema Fibromyalgia Type 2 diabetes mellitus without complications Neuropathy Abscess Abdominal pain Infection of skin due to methicillin resistant Staphylococcus aureus (MRSA) Numbness of right hand COVID-19 Sebaceous cyst Cubital tunnel syndrome on left Contusion of right ankle Numbness and tingling in left hand Left hand pain Stiffness of left hand joint Emesis Overweight (BMI 25.0-29.9) Borderline diabetes Dyslipidemia Non-toxic multinodular goiter Diabetes type 2, controlled History of restless legs syndrome Anxiety Depression High cholesterol Asthma DVT (deep venous thrombosis) GERD (gastroesophageal reflux disease) Anastomotic ulcer Surgical History Hx of colonoscopy H/O removal of cyst (02/03/23) History of removal of cyst (07/28/22) Hx of cholecystectomy History of surgery History of surgery on left wrist Hx of elbow surgery History of excision of epidermal inclusion cyst (03/23/22) Hx of excision of epidermal inclusion cyst (12/25/21) History of excision of mass (10/26/21) S/P trigger finger release History of tooth extraction Hx of hand surgery Hx of esophagogastroduodenoscopy S/P gastric bypass History of hysterectomy Family History Mother Diabetes mellitus CHF (congestive heart failure) Kidney failure Cervical cancer Brother No problems noted. Brother No problems noted. 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 Neuro: Normal sensation of the tips of all digits of the left hand at this time Vascular: Cap refill brisk Pain: Minimal tenderness to palpation about the incision site on right middle finger No tenderness to palpation directly to incision site on dorsal right wrist, however the patient reports a burning sensation when palpating adjacent to this incision site ROM: No further visible or palpable locking and catching of the right middle finger Patient reports significant discomfort at both the incision site and the dorsum of the right middle finger when attempting to make a closed fist With encouragement, patient is able to make a closed fist, but is largely unable to hold this actively, with the fingers moving approximately 1-2 cm off of the palm when released Skin: Well approximated and well healing incision sites noted of the dorsal right wrist and over the A1 palmira of the right middle finger There is some slight redness noted just adjacent to the incision site on the dorsal right wrist No lacerations or abrasions. General: No ecchymosis, , drainage Psych: Appears grossly normal Affect normal Attitude cooperative Assessment & Plan Assessment & Plan (1) Trigger finger, right middle finger: Code(s): M65.331 - Trigger finger, right middle finger Category: Medical (2) Ganglion cyst of dorsum of right wrist: Code(s): M67.431 - Ganglion, right wrist Category: Medical Plan 1. Status post dorsal wrist ganglion excision 2. Status post right middle finger trigger release DOS 01/31/2025 Patient appears to be recovering fairly well postoperatively Patient is educated about the typical recovery course At this time, patient is prescribed a one-week course of cephalexin due to the slight redness and burning sensation that is just adjacent to the incision site on the dorsal right wrist Patient should take this antibiotic 3 times a day with food Patient has also placed with an urgent referral to OT for range of motion of the right hand, as I feel the cause of her discomfort in her right hand is stiffness Patient understands this and is amenable to this plan Patient will follow-up in 1 week for wound check, and in 2-3 weeks for [id number] check, sooner with any acute concerns Orders: Orders OT Evaluation and Treatment Today M65.331 - Trigger finger, right middle finger, M67.431 - Ganglion, right wrist Medications: New cephalexin 500 mg PO Q8H 21 caps 0RF 7 days Coding Level of Care Code Global (88919) Diagnoses Trigger finger, right middle finger M65.331 Ganglion cyst of dorsum of right wrist M67.431
== END 2025-02-13 11:49 | disposition home or self-care (01) ==
LOC: HO.HOS 10:49
PROVIDERS: PCP Student in an Organized Health Care Education/Training Program
DX: M65.331 Trigger finger, right middle finger (principal); M67.431 Ganglion, right wrist
CPT/HCPCS: 99024

== ENCOUNTER → 2025-02-13 10:48 | Outpatient (BNVA) | payer MEDICAID, SELFPAY | PROVIDERS: PCP Student in an Organized Health Care Education/Training Program | DX: M65.331 Trigger finger, right middle finger (principal); M67.431 Ganglion, right wrist | CPT/HCPCS: 99212 ==

== ENCOUNTER 2025-02-21 11:15 | Outpatient (AMB) | payer MEDICAID, SELFPAY ==
[2025-02-21 11:42] VITALS: BMI 27.5
--- NOTE | 2025-02-21 11:42 | A.OFFVIS_ITS ---
Vital Signs 02/21/25 11:42 Height 5 ft 3 in Weight 155 lb BMI 27.5 Intake Visit Reasons: PO-Rt MF Trigger, Ganglion Exc Intake Note: Nayely is a 64 year old right hand dominant female who presents today post- operatively status post right middle trigger finger release & right dorsal wrist ganglion excision, DOS: 01/31/[address] Bautista. At their last visit patient was prescribed a one-week course of cephalexin due to the slight redness and burning sensation that is just adjacent to the incision site on the dorsal right wrist. An urgent referral to occupational therapy was placed. Today, patient reports she is having a difficult time during OT. She continues having swelling and some numbness at the wrist. She continues taking antibiotics and Oxycodone. She is unabe to take Ibuprofen. Allergies prochlorperazine (From Compazine) Allergy (Severe, Verified 02/21/25 11:47) Seizure sulfamethoxazole (From BACTRIM) Allergy (Severe, Verified 02/21/25 11:47) BLISTERS- DELGADO - NERVE ENDINGS IN HAND/ERYTHEMA MULTIFORM trimethoprim (From BACTRIM) Allergy (Severe, Verified 02/21/25 11:47) BLISTERS- DELGADO - NERVE ENDINGS IN HAND/ERYTHEMA MULTIFORM Penicillins Allergy (Intermediate, Verified 02/21/25 11:47) HIVES latex (Latex) Allergy (Mild, Verified 02/21/25 11:47) RASH transparent dressing (Tegaderm) Adverse Reaction (Severe, Verified 02/21/25 11:47) Redness of Skin theophylline Adverse Reaction (Intermediate, Verified 02/21/25 11:47) TACHYCARDIA HPI HPI PO-Rt MF Trigger, Ganglion Exc : Details: Nayely is a 64 year old right hand dominant female who presents today post- operatively status post right middle trigger finger release & right dorsal wrist ganglion excision, DOS: 01/31/[address] Bautista. At their last visit patient was prescribed a one-week course of cephalexin due to the slight redness and burning sensation that is just adjacent to the incision site on the dorsal right wrist. An urgent referral to occupational therapy was placed. Today, patient reports she is having a difficult time during OT. She continues having swelling and some numbness at the wrist. She continues taking antibiotics and Oxycodone. She is unabe to take Ibuprofen. PFSH Medical History Hidradenitis suppurativa Edema Fibromyalgia Type 2 diabetes mellitus without complications Neuropathy Abscess Abdominal pain Infection of skin due to methicillin resistant Staphylococcus aureus (MRSA) Numbness of right hand COVID-19 Sebaceous cyst Cubital tunnel syndrome on left Contusion of right ankle Numbness and tingling in left hand Left hand pain Stiffness of left hand joint Emesis Overweight (BMI 25.0-29.9) Borderline diabetes Dyslipidemia Non-toxic multinodular goiter Diabetes type 2, controlled History of restless legs syndrome Anxiety Depression High cholesterol Asthma DVT (deep venous thrombosis) GERD (gastroesophageal reflux disease) Anastomotic ulcer Surgical History Hx of colonoscopy H/O removal of cyst (02/03/23) History of removal of cyst (07/28/22) Hx of cholecystectomy History of surgery History of surgery on left wrist Hx of elbow surgery History of excision of epidermal inclusion cyst (03/23/22) Hx of excision of epidermal inclusion cyst (12/25/21) History of excision of mass (10/26/21) S/P trigger finger release History of tooth extraction Hx of hand surgery Hx of esophagogastroduodenoscopy S/P gastric bypass History of hysterectomy Family History Mother Diabetes mellitus CHF (congestive heart failure) Kidney failure Cervical cancer Brother No problems noted. Brother No problems noted. 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 Neuro: Normal sensation of the tips of all digits of the left hand at this time Vascular: Cap refill brisk Pain: Minimal tenderness to palpation about the incision site on right middle finger No tenderness to palpation directly to incision site on dorsal right wrist, however the patient reports a burning sensation when palpating adjacent to this incision site ROM: No further visible or palpable locking and catching of the right middle finger Patient reports significant discomfort at both the incision site and the dorsum of the right middle finger when attempting to make a closed fist With encouragement, patient is able to make a closed fist, but is largely unable to hold this actively, with the fingers moving approximately 1-2 cm off of the palm when released Skin: Well approximated and well healing incision sites noted of the dorsal right wrist and over the A1 palmira of the right middle finger There is some slight redness noted just adjacent to the incision site on the dorsal right wrist No lacerations or abrasions. General: No ecchymosis, , drainage Psych: Appears grossly normal Affect normal Attitude cooperative Assessment & Plan Assessment & Plan (1) Trigger finger, right middle finger: Code(s): M65.331 - Trigger finger, right middle finger Category: Medical (2) Ganglion cyst of dorsum of right wrist: Code(s): M67.431 - Ganglion, right wrist Category: Medical Plan 1. Status post dorsal wrist ganglion excision 2. Status post right middle finger trigger release DOS 01/31/2025 Patient appears to be recovering fairly well postoperatively Patient is educated about the typical recovery course At this time, no further antibiotics indicated Patient has also placed with an urgent referral to OT for range of motion of the right hand, as I feel the cause of her discomfort in her right hand is stiffness Patient is offered a work note for light duty at work, but states that she does not need this, stating ?I am going to take a break for a little while? Patient understands this and is amenable to this plan Patient will follow-up in 4 weeks for [id number] check, sooner with any acute concerns Coding Level of Care Code Global (71953) Diagnoses Trigger finger, right middle finger M65.331 Ganglion cyst of dorsum of right wrist M67.431
--- OUTSIDE RECORDS SUMMARY | 2025-02-21 12:58 | XMS_ITS | Encounter Summary ---
Author Organization [employer] Address [address] [place] [address] Care Team Providers Care Stand Grinder Name Role Phone Joyce Tapia MD Primary Care Provider [phone] Reason for Visit * Reason Onset Date Comments Med Refill 09/24/2024 Encounter Details Date Type Department Care Team (Late st Contact Info) Description 09/24/2024 Refill [facility] [address], [place] [phone] Joyce Tapia MD [address] [place] [address] Status post surgical removal of nail matrix [...] Care Team (Late st Contact Info) Description 02/22/2025 10:30 AM EDT Medication Management [facility] [address] [place] [address] Cristal Muhammad, PharmD [address] [place] [address] 03/11/2025 11:30 AM EDT Telemedicine [facility] [address] [place] [address] Joyce Tapia MD [address] [place] [address] 03/19/2025 10:30 AM EDT Office Visit [facility] [address] [place] [address] Ayden Orellana MD [address] [place] [address] 06/04/2025 11:00 AM EST Clinical Support [facility] [address] [place] [address] Katherine Casper RN [address] [place] [address] documented as of this encounter Visit Diagnoses Diagnosis Status post surgical removal of nail matrix of toe of left foot documented in this encounter Additional Health Concerns Assessment Noted Time PHQ-9 Depression Total Score: 7 09/15/19 25 9:02 AM EDT documented as of this encounter Care Teams Stand Grinder Relationship Specialty Start Date End Date Joyce Tapia MD [address] [place] [id number] PCP - General Family Medicine 06/19/12 documented as of this encounter
== END 2025-02-21 12:00 | disposition home or self-care (01) ==
LOC: HO.HOS 11:16
PROVIDERS: PCP Student in an Organized Health Care Education/Training Program
DX: M65.331 Trigger finger, right middle finger (principal); M67.431 Ganglion, right wrist
CPT/HCPCS: 99024

== ENCOUNTER → 2025-02-21 11:15 | Outpatient (BNVA) | payer MEDICAID, SELFPAY | PROVIDERS: PCP Student in an Organized Health Care Education/Training Program | DX: M65.331 Trigger finger, right middle finger (principal); M67.431 Ganglion, right wrist | CPT/HCPCS: 99212 ==

== ENCOUNTER 2025-03-01 09:26 | Emergency (ER) | payer MEDICAID, SELFPAY ==
--- NOTE | ~2025-03-01 | US_ITS ---
EXAMINATION: US TRIPLEX LOWER EXTREMITY, LEFT CLINICAL INFORMATION: Left foot pain COMPARISON: None available. TECHNIQUE: Color-flow triplex imaging with spectral analysis and compression Doppler were performed on the left lower extremity. FINDINGS: Respiratory variation, normal compression and augmented flow are noted throughout the left lower extremity. The visualized common femoral vein, superficial femoral vein, profunda femoral vein, popliteal vein and midcalf peroneal and posterior tibial venous segments show no evidence of deep venous thrombosis. There is no Freeman's cyst. US/US venous duplex LE LT IMPRESSION: No evidence of deep venous thrombosis involving the left lower extremity. Electronically signed by: Joe Powers MD 03/01/2025 12:23 PM EDT
--- NOTE | ~2025-03-01 | XR_ITS ---
EXAMINATION: XR FOOT, LEFT CLINICAL INFORMATION: atraumatic pain to ball of foot diabetic COMPARISON: 08/24/2022. TECHNIQUE: AP, lateral, and oblique views of the left foot. FINDINGS: No fracture, dislocation, or suspicious bone lesion. Normal bone mineralization. Normal alignment. Joint spaces are preserved. No significant arthropathy. Normal plantar arch. There is a large plantar calcaneal spur, and a small dorsal spur. Soft tissues appear normal. No soft tissue emphysema or radiopaque foreign body seen. XR/XR foot LT min 3V IMPRESSION: 1. No acute findings of the left foot. Electronically signed by: Bakari De Santiago MD 03/01/2025 10:44 AM EDT
[2025-03-01 09:40] VITALS: BP 116/64; PULSE 71; RESP 16; TEMP 36.7; O2SAT 97; BMI 28.0
[2025-03-01 09:43] VITALS: BP 123/65; PULSE 75; RESP 16; O2SAT 98
--- NOTE | 2025-03-01 09:48 | PC.NURSE ---
Addendum entered by Elida Everett RN 03/01/25 09:57: Patient a 64 yo female who presents with c/o left foot pain (burning, pounding) for the past 3 days. Patient denies any trauma and feels like there is something inside her foot . Respirations even and non-labored. Abdomen soft, non-tender with positive bwoel sounds. Positive pedal pulses with no edema bilat. Original Note: Medical History Hidradenitis suppurativa Edema Fibromyalgia Type 2 diabetes mellitus without complications Neuropathy Abscess Abdominal pain Infection of skin due to methicillin resistant Staphylococcus aureus (MRSA) Numbness of right hand COVID-19 Sebaceous cyst Cubital tunnel syndrome on left Contusion of right ankle Numbness and tingling in left hand Left hand pain Stiffness of left hand joint Emesis Overweight (BMI 25.0-29.9) Borderline diabetes Dyslipidemia Non-toxic multinodular goiter Diabetes type 2, controlled History of restless legs syndrome Anxiety Depression High cholesterol Asthma DVT (deep venous thrombosis) GERD (gastroesophageal reflux disease) Anastomotic ulcer
--- NOTE | 2025-03-01 10:06 | ED.GENADULT ---
HPI - General Adult General Chief complaint: General Medical Stated complaint: Pain on Left foot Time Seen by Provider: 03/01/25 10:06 Source: patient Mode of arrival: ambulatory Limitations: no limitations History of Present Illness ED Provider: RABIA MAKI PA-C HPI narrative: 64 year old female with pmhx significant for T2DM, fibromyalgia, DVT (no longer on AC) presents to the ED today for evaluation of atraumatic left foot pain x3 days. Reports pain to the ball of her foot which began after taking her sneaker off and taking a step 3 days ago. Pain is worse with bearing weight. Pain does not radiate. She denies any blunt injury/trauma. Denies chest pain, sob, palpitations, numbness/tingling/weakness. No hx afib. Related Data Home Medications ?Medication ?Instructions ?Recorded ?Confirmed hydroxyzine HCl 25 mg tablet 50 mg PO BEDTIME 06/04/20 01/18/25 sertraline 100 mg tablet 1 tab PO BEDTIME 10/20/21 01/18/25 tizanidine 4 mg tablet 1 tab PO BEDTIME PRN Pain 10/20/21 01/18/25 cyanocobalamin (vitamin B-12) 1,000 mcg PO QAM 06/03/22 01/18/25 1,000 mcg tablet metformin 500 mg tablet,extended 500 mg PO BID 06/03/22 01/18/25 release 24 hr albuterol sulfate 90 mcg/actuation 2 puff inhalation Q4-6H PRN 08/25/23 01/18/25 aerosol inhaler Shortness Of Breath Or Wheezing oxycodone 5 mg tablet 5 mg PO Q6H PRN severe pain 09/27/23 01/18/25 pramipexole 0.5 mg tablet 0.5 mg PO TID 09/27/23 01/18/25 ferrous sulfate 325 mg (65 mg 325 mg PO QAM 10/27/23 01/18/25 iron) tablet varenicline tartrate 1 mg tablet 1 mg PO BID 04/24/24 01/18/25 blood sugar diagnostic (FreeStyle #10 ea 01/10/25 01/10/25 Lite Strips) empagliflozin 10 mg tablet 10 mg PO QAM 01/10/25 01/18/25 (Jardiance) esomeprazole magnesium 20 mg 20 mg PO QAM 01/10/25 01/18/25 capsule,delayed release furosemide 20 mg tablet 10 mg PO DAILY 01/10/25 01/18/25 gabapentin 100 mg capsule 100 mg PO BID 01/10/25 01/18/25 hydrochlorothiazide 12.5 mg capsule 12.5 mg PO QAM 01/10/25 01/18/25 lancets 33 gauge (Easy Touch Twist #100 ea 01/10/25 01/10/25 Lancets) ondansetron HCl 4 mg tablet 4 mg PO Q12H PRN nausea/vomiting 01/10/25 01/18/25 pantoprazole 40 mg tablet,delayed 40 mg PO QAM 01/10/25 01/18/25 release sucralfate 1 gram tablet 1 g PO QID 01/10/25 01/18/25 zolpidem 5 mg tablet 5 mg PO BEDTIME PRN insomnia 01/10/25 01/18/25 Chantix 01/31/25 01/31/25 Previous Rx's ?Medication ?Instructions ?Recorded cholecalciferol (vitamin D3) 50 50 mcg PO DAILY #30 caps 12/15/20 mcg (2,000 unit) capsule fluticasone propionate 50 2 spray intranasal DAILY #16 grams 06/21/21 mcg/actuation nasal spray,suspension (Flonase Allergy Relief) blood-glucose meter (FreeStyle #1 ea 08/21/21 Lite Meter kit) blood sugar diagnostic (FreeStyle #150 strips 03/30/22 Lite Strips) thiamine HCl (vitamin B1) 100 mg 100 mg PO DAILY #90 tabs 06/07/22 tablet lidocaine 5 % topical patch 1 patch topical DAILY #15 ea 11/10/22 (Lidoderm) cyclobenzaprine 10 mg tablet 10 mg PO Q8H #20 tabs 01/07/23 meclizine 25 mg tablet 25 mg PO TID PRN dizziness #20 tabs 02/11/23 albuterol sulfate 1.25 mg/3 mL 1.25 mg (3 mL) inhalation QID PRN 06/11/23 solution for nebulization shortness of breath or wheezing #90 mL diclofenac sodium 1 % topical gel 2 g topical BID PRN pain (scale 07/18/23 (Aleve (diclofenac)) score 4-6) #100 grams barium sulfate 2 % (w/v) oral 450 ml PO ONCE #900 mL 07/31/24 suspension (Readi-Cat 2) hydrocodone 5 mg-acetaminophen 325 1 tab PO Q6H PRN pain #15 tabs 01/31/25 mg tablet cephalexin 500 mg capsule 500 mg PO Q8H 7 days #21 caps 02/13/25 methocarbamol 750 mg tablet 1,500 mg (2 x 750 mg) PO Q8H PRN 03/04/25 pain, moderate #24 tabs methylprednisolone 4 mg tablets in 4 mg PO QAM #21 ea 03/04/25 a dose pack (Medrol (Coleman)) Allergies Allergy/AdvReac Type Severity Reaction Status Date / Time prochlorperazine (From Allergy Severe Seizure Verified 03/04/25 18:56 Compazine) sulfamethoxazole (From Allergy Severe BLISTERS- Verified 03/04/25 18:56 BACTRIM) DELGADO - NERVE ENDINGS IN HAND/ERYTHEMA MULTIFORM trimethoprim (From BACTRIM) Allergy Severe BLISTERS- Verified 03/04/25 18:56 DELGADO - NERVE ENDINGS IN HAND/ERYTHEMA MULTIFORM Penicillins Allergy Intermediate HIVES Verified 03/04/25 18:56 latex (Latex) Allergy Mild RASH Verified 03/04/25 18:56 transparent dressing AdvReac Severe Redness of Verified 03/04/25 18:56 (Tegaderm) Skin theophylline AdvReac Intermediate TACHYCARDIA Verified 03/04/25 18:56 Review of Systems Review of Systems: Yes all other systems are reviewed and are negative PMFSH Past Medical History Attestation statement: The following information was validated with the patient. Source: old records reviewed and nursing notes reviewed Medical History Hidradenitis suppurativa Edema Fibromyalgia Type 2 diabetes mellitus without complications Neuropathy Abscess Abdominal pain Infection of skin due to methicillin resistant Staphylococcus aureus (MRSA) Numbness of right hand COVID-19 Sebaceous cyst Cubital tunnel syndrome on left Contusion of right ankle Numbness and tingling in left hand Left hand pain Stiffness of left hand joint Emesis Overweight (BMI 25.0-29.9) Borderline diabetes Dyslipidemia Non-toxic multinodular goiter Diabetes type 2, controlled History of restless legs syndrome Anxiety Depression High cholesterol Asthma DVT (deep venous thrombosis) GERD (gastroesophageal reflux disease) Anastomotic ulcer Surgical History Hx of colonoscopy H/O removal of cyst (02/03/23) History of removal of cyst (07/28/22) Hx of cholecystectomy History of surgery History of surgery on left wrist Hx of elbow surgery History of excision of epidermal inclusion cyst (03/23/22) Hx of excision of epidermal inclusion cyst (12/25/21) History of excision of mass (10/26/21) S/P trigger finger release History of tooth extraction Hx of hand surgery Hx of esophagogastroduodenoscopy S/P gastric bypass History of hysterectomy Family History Family History Mother Diabetes mellitus CHF (congestive heart failure) Kidney failure Cervical cancer Brother No problems noted. Brother No problems noted. 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 Skin: Warm, dry, intact. No rashes or lesions. Head: Normocephalic, atraumatic. EENT: Hearing is intact b/l. Neck:Trachea midline.? Cardiac: Chest wall symmetric. RRR Lungs: Normal respiratory effort without accessory muscle use. CTA bilaterally. Ext: no overlying skin changes/ erythema, open wounds noted to left foot. no deformities. plantar aspect, specifically the ball of left scrap kettle tender to palpation. sensation intact. Full ROM throughout. Strength 3/5 in left foot 5/5 in right foot. no calf tenderness, negative blair test. Capillary refill <2 seconds in all extremities. Pulses 2+ equal and bilateral. Neuro: AOx3. Normal speech. CN 2-12 grossly intact. Psych: Appropriate mood and affect. Responds appropriately to questions. Course Course Course Narrative: xr left foot without fracture or other osseous abnormality. venous duplex of LLE without DVT. cbc without leukocytosis or left shift. no anemia, h&h stable. chemistry without acute electrolyte abnormality requiring intervention. no moi. liver function at baseline. > work up reassuring. will provide patient with post-op shoe for comfort. advised to continue her home oxycodone for pain control w/ outpatient follow up. Medications Administered Discontinued Medications Generic Name Dose Route Start Last Admin Trade Name Freq PRN Reason Stop Dose Admin Acetaminophen 975 mg 03/01/25 11:25 03/01/25 11:32 Acetaminophen 325 Mg Tablet PO 03/01/25 11:26 975 mg ONCE ONE Administration Medical Decision Making Medical Decision Making [facility] Narrative: 64 year old female with pmhx significant for T2DM, fibromyalgia, DVT (no longer on AC) presents to the ED today for evaluation of atraumatic left foot pain x3 days. vital signs stable. she is well appearing and in NAD. On exam, no overlying skin changes/ erythema, open wounds noted to left foot. no deformities. plantar aspect, specifically the ball of left scrap kettle tender to palpation. sensation intact. Full ROM throughout. Strength 3/5 in left foot 5/5 in right foot. no calf tenderness, negative blair test. Capillary refill <2 seconds in all extremities. Pulses 2+ equal and bilateral. Differential dx include msk sprain/strain, plantar fasciitis, contusion, fracture, arthritis, DVT Less likely osteomyelitis, nv compromise or threat to limb. presentation not consistent w/ gout v pseudogout. Plan for XR, basic labs, ultrasound. Differential Diagnosis Differential Diagnoses: The differential diagnosis associated with the presentation includes as above. Admission/Observation not indicated. Lab Data [facility] Lab Attestation statement: I reviewed the patient's lab results. as above. 03/01/25 11:20 03/01/25 11:20 Labs: Lab Results 03/01/25 Range/Units 11:20 WBC 7.5 (4.8-10.8) X10*3/uL RBC 4.73 (4.20-5.50) X10*6/uL Hgb 13.9 (12.0-16.0) g/dl Hct 42.0 (37.0-47.0) % MCV 88.8 (80.0-98.0) fL MCH 29.4 (27.0-33.0) pg MCHC 33.1 (31.0-35.0) g/dl RDW 12.7 (11.0-16.0) % Plt Count 178 (160-400) X10*3/uL MPV 10.2 (9.4-12.3) fL Immature Gran % (Auto) 0.4 (0.0-0.4) % Neut % (Auto) 64.1 (45-73) % Lymph % (Auto) 24.9 (20-40) % [place] % (Auto) 7.0 (2-11) % Eos % (Auto) 3.2 (0-4) % Baso % (Auto) 0.4 (0-2) % Lymph # (Auto) 1.9 (1.2-4.9) X10*3/uL [place] # (Auto) 0.5 (0.1-1.2) X10*3/uL Eos # (Auto) 0.2 (0.0-0.4) X10*3/uL Baso # (Auto) 0.0 (0.0-0.2) X10*3/uL Abs Immat Gran (auto) 0.03 (0.00-0.03) X10*3/uL Absolute Neuts (auto) 4.8 (2.0-8.3) x10*3/uL Absolute Nucleated RBC 0.000 (0.0-0.012) X10*3/uL Nucleated RBC % (auto) 0.0 (0.0-0.2) /100WBC Sodium 141 (135-145) mmol/L Potassium 4.0 (3.3-5.1) mmol/L Chloride 107 (96-108) mmol/L Carbon Dioxide 27 (22-29) mmol/L Anion Gap 11 L (12-20) BUN 14 (9-16) mg/dL Creatinine 0.72 (0.5-1.4) mg/dL Estim Creat Clear Calc 76.8 Estimated GFR > 60 Random Glucose 115 (60-115) mg/dL Calcium 8.9 (8.4-10.2) mg/dL Magnesium 2.1 (1.6-2.6) mg/dL Total Bilirubin 0.4 (0.0-1.0) mg/dL AST 28 (5-31) U/L ALT 34 H (0-31) U/L Alkaline Phosphatase 82 (39-117) U/L Total Protein 6.3 L (6.5-8.0) g/dL Albumin 3.9 (3.5-5.0) g/dL Independent Interpretation I performed an independent interpretation of an: Plain X-Ray Interpretation: xr L foot without osseous abnormality Venous duplex LLE without clot Radiology Impression Discussion of test interpretation with radiology: I have reviewed the radiologist's reading. Radiologist Impression: Date of Service: 03/04/25 Procedure(s): XR foot LT min 3V Accession Number(s): [id number] cc: David Juares; Joyce Tapia MD~ CLINICAL HISTORY: pain 3 view left foot Comparison: CR/ND/SR - XR FOOT 3 OR MORE VIEWS LEFT - 03/01/25 10:42 EDT Findings: Bones intact. No dislocations. Mild midfoot spurring. Moderate-sized plantar calcaneal spur. No ankle effusion. No radiopaque foreign body. IMPRESSION: 1. No evidence of acute fracture or dislocation. [id number]-fainpudi DJD. This document has been electronically signed by: Ruben Bermeo MD on 03/04/2025 20:23:06 Date of Service: 03/01/25 Procedure(s): US venous duplex LE LT Accession Number(s): [id number] cc: Joyce Tapia MD; Rabia Maki~ EXAMINATION: US TRIPLEX LOWER EXTREMITY, LEFT CLINICAL INFORMATION: Left foot pain COMPARISON: None available. TECHNIQUE: Color-flow triplex imaging with spectral analysis and compression Doppler were performed on the left lower extremity. FINDINGS: Respiratory variation, normal compression and augmented flow are noted throughout the left lower extremity. The visualized common femoral vein, superficial femoral vein, profunda femoral vein, popliteal vein and midcalf peroneal and posterior tibial venous segments show no evidence of deep venous thrombosis. There is no Freeman's cyst. US/US venous duplex LE LT IMPRESSION: No evidence of deep venous thrombosis involving the left lower extremity. Electronically signed by: Joe Powers MD 03/01/2025 12:23 PM EDT External Record Review External record reviewed: Inpatient record Prescription Management I considered prescription management with: Pain Medication Social Determinants Patient?s care significantly limited by Social Determinants of Health including: Other Social Determinant of Health Critical Care Time Critical Care Time Critical Care Time: No Discharge Plan Discharge Clinical Impression: Left foot pain Patient Disposition: Home, Self-Care Instructions: Arthralgia (ED) Additional Instructions: Your blood work is reassuring. The x-ray of your left foot is unremarkable. There is no evidence of infection in your bone or fracture. The ultrasound of your left leg does not demonstrate any clot. You may take Tylenol and Motrin at home. Continue taking your prescribed oxycodone. We have provided you with a postop shoe to hopefully take some pressure off of your foot. You may try rolling your foot over a frozen water bottle to see if this helps her discomfort. Follow up with your outpatient provider. Return with any new or worsening symptoms. In the case of an emergency call 911. Prescriptions: No Action cholecalciferol (vitamin D3) 50 mcg (2,000 unit) capsule 50 mcg PO DAILY Qty: 30 11RF (DME) FreeStyle Lite Strips Strip See Rx Instructions .ROUTE .COMPLEX Qty: 150 6RF Dose Instruction: USE TO TEST BLOOD SUGAR TWICE DAILY Rx Instructions: USE TO TEST BLOOD SUGAR TWICE DAILY thiamine HCl (vitamin B1) 100 mg tablet 100 mg PO DAILY Qty: 90 3RF Readi-Cat 2 2 % (w/v) suspension 450 ml PO ONCE Qty: 900 0RF Rx Instructions: Drink both bottles [address] scan hydroxyzine HCl 25 mg tablet 50 mg PO BEDTIME sertraline 100 mg tablet 1 tab PO BEDTIME tizanidine 4 mg tablet 1 tab PO BEDTIME PRN (Reason: Pain) fluticasone propionate [Flonase Allergy Relief] 50 mcg/actuation spray,suspension 2 spray intranasal DAILY Qty: 16 0RF Rx Instructions: administer into each nostril metformin 500 mg tablet extended release 24 hr 500 mg PO BID albuterol sulfate 1.25 mg/3 mL solution for nebulization 1.25 mg inhalation QID PRN (Reason: shortness of breath or wheezing) Qty: 90 0RF albuterol sulfate 90 mcg/actuation Hfa Aerosol Inhaler 2 puff INHALATION Q4-6H PRN (Reason: Shortness Of Breath Or Wheezing) lidocaine [Lidoderm] 5 % adhesive patch,medicated 1 patch topical DAILY Qty: 15 0RF Rx Instructions: leave on most painful area for up to 12 hrs cyclobenzaprine 10 mg tablet 10 mg PO Q8H Qty: 20 0RF meclizine 25 mg tablet 25 mg PO TID PRN (Reason: dizziness) Qty: 20 0RF diclofenac sodium [Aleve (diclofenac)] 1 % gel 2 g topical BID PRN (Reason: pain (scale score 4-6)) Qty: 100 0RF Rx Instructions: apply to single elbow, wrist or hand; for hand includes palm/fingers/back of hand Chantix hydrocodone-acetaminophen 5-325 mg tablet 1 tab PO Q6H PRN (Reason: pain) Qty: 15 0RF Rx Instructions: Partial Fill upon patient request. methylprednisolone [Medrol (Coleman)] 4 mg tablets,dose pack 4 mg PO QAM Qty: 21 0RF Rx Instructions: Take per package instructions methocarbamol 750 mg tablet 1,500 mg PO Q8H PRN (Reason: pain, moderate) Qty: 24 0RF (DME) blood-glucose meter [FreeStyle Lite Meter] Kit See Rx Instructions .Route Qty: 1 0RF Rx Instructions: As directed test blood sugar two times a day cyanocobalamin (vitamin B-12) 1,000 mcg tablet 1,000 mcg PO QAM oxycodone 5 mg tablet 5 mg PO Q6H PRN (Reason: severe pain) pramipexole 0.5 mg tablet 0.5 mg PO TID varenicline tartrate 1 mg tablet 1 mg PO BID cephalexin 500 mg capsule 500 mg PO Q8H 7 Days Qty: 21 0RF ferrous sulfate 325 mg (65 mg iron) tablet 325 mg PO QAM (DME) FreeStyle Lite Strips Strip See Rx Instructions .ROUTE TID Qty: 10 Rx Instructions: As directed pantoprazole 40 mg tablet,delayed release (DR/EC) 40 mg PO QAM zolpidem 5 mg tablet 5 mg PO BEDTIME PRN (Reason: insomnia) furosemide 20 mg tablet 10 mg PO DAILY gabapentin 100 mg capsule 100 mg PO BID (DME) lancets [Easy Touch Twist Lancets] 33 gauge misc See Rx Instructions .ROUTE TID Qty: 100 Rx Instructions: As directed Jardiance 10 mg tablet 10 mg PO QAM sucralfate 1 gram tablet 1 g PO QID ondansetron HCl 4 mg tablet 4 mg PO Q12H PRN (Reason: nausea/vomiting) hydrochlorothiazide 12.5 mg capsule 12.5 mg PO QAM esomeprazole magnesium 20 mg capsule,delayed release(DR/EC) 20 mg PO QAM Referrals: Joyce Tapia MD [Primary Care Provider, Internal Medicine] Interventions: ED Discharge Assessment Last Done: 03/01/25 13:30 Discharge Date/Time: 03/01/25 13:31 Print Language: Greek
--- OUTSIDE RECORDS SUMMARY | 2025-03-01 10:47 | XMS_ITS | Encounter Summary ---
Author Organization [employer] Address [address] [facility] [address] [place] [address] Care Team Providers Care Gum Scoring Machine Operator Name Role Phone Joyce Tapia MD Primary Care Provider Reason for Visit * Reason Onset Date Comments Med Refill 09/24/2024 Encounter Details Date Type Department Care Team (Late st Contact Info) Description 09/24/2024 Refill [facility] [address] [place], [place] [phone] Joyce Tapia MD [address] [place] [address] Status post surgical removal of nail matrix [...] Care Team (Late st Contact Info) Description 03/11/2025 11:30 AM EDT Telemedicine [facility] [address] [place] [address] Joyce Tapia MD [address] [place] [address] 03/19/2025 10:30 AM EDT Office Visit [facility] [address] [place] [address] Ayden Orellana MD [address] [place] [address] 04/03/2025 10:00 AM EDT Medication Management [facility] [address] [place] [address] Cristal Muhammad, BobD [address] [place] [address] 06/04/2025 11:00 AM EST Clinical Support [facility] [address] [place] [address] Katherine Casper, MAKEDA [address] [place] [address] documented as of this encounter Visit Diagnoses Diagnosis Status post surgical removal of nail matrix of toe of left foot documented in this encounter Additional Health Concerns Assessment Noted Time PHQ-9 Depression Total Score: 7 09/15/19 25 9:02 AM EDT documented as of this encounter Care Teams Gum Scoring Machine Operator Relationship Specialty Start Date End Date Joyce Tapia MD [address] [place] [phone] PCP - General Family Medicine 06/19/12 documented as of this encounter
--- OUTSIDE RECORDS SUMMARY | 2025-03-01 10:47 | XMS_ITS | Encounter Summary ---
Author Organization [employer] Address [address] [facility] [address] [place] [address] Care Team Providers Care Web Retailer Name Role Phone Joyce Tapia MD Primary Care Provider [phone] Reason for Visit * Reason Comments Med Refill Encounter Details Date Type Department Care Team ([facility] st Contact Info) Description 04/12/2024 Refill [facility] [address] [place], [place] [phone] Joyce Tapia MD [address] [place], [place] [phone] Status post surgical removal of nail matrix [...] Info) Description 03/11/2025 11:30 AM EDT Telemedicine [facility] MED [facility] [address] [place] [address] Joyce Tapia MD [address] [place] [address] 03/19/2025 10:30 AM EDT Office Visit [facility] [address] [place] [phone] Ayden Orellana MD [address] [place] [address] 04/03/2025 10:00 AM EDT Medication Management [facility] [address] [place] [phone] Cristal Muhammad PharmD [address] [place] [address] 06/04/2025 11:00 AM EST Clinical Support [facility] [address] [place] [phone] Katherine Casper, MAKEDA [address] [place] [address] documented as of this encounter Visit Diagnoses Diagnosis Status post surgical removal of nail matrix of toe of left foot documented in this encounter Care Teams Web Retailer Relationship Specialty Start Date End Date Joyce Tapia MD [address] [place] [address] PCP - General Family Medicine 06/19/12 documented as of this encounter
--- OUTSIDE RECORDS SUMMARY | 2025-03-01 10:47 | XMS_ITS | Encounter Summary ---
Author Organization [employer] Address [address] [facility] [address] [place] [address] Care Team Providers Care Alligator Shear Operator Name Role Phone Joyce Tapia MD Primary Care Provider [phone] Reason for Visit * Reason Onset Date Comments Med Refill 03/17/2023 Encounter Details Date Type Department Care Team (Late st Contact Info) Description 03/17/2023 Telephone [facility] [address] [place] [address] Joyce Tapia MD [address] [place] [address] Med Refill Social History Tobacco Use Types [...] 03/11/2025 11:30 AM EDT Telemedicine [facility] [address] [place] [address] Joyce Tapia MD [address] [place] [address] 03/19/2025 10:30 AM EDT Office Visit [facility] [address] [place] [address] Aydne Orellana MD [address] [place] [address] 04/03/2025 10:00 AM EDT Medication Management [facility] [address] [place] [address] Cristal Muhammad, PharmD [address] [place] [address] 06/04/2025 11:00 AM EST Clinical Support [facility] [address] [place] [address] Katherine Casper, RN [address] [place] [address] documented as of this encounter Visit Diagnoses Not on filedocumented in this encounter Care Teams Alligator Shear Operator Relationship Specialty Start Date End Date Joyce Tapia MD [address] [place] [address] PCP - General Family Medicine 06/19/12 documented as of this encounter
--- OUTSIDE RECORDS SUMMARY | 2025-03-01 10:47 | XMS_ITS | Encounter Summary ---
Author Organization [employer] Address 75 [facility] 7t [place] [address] Care Team Providers Care Plate And Weld Inspector Name Role Phone Joyce Tapia MD Primary Care Provider [phone] Reason for Visit * Reason Onset Date Comments Med Refill 09/11/2024 Encounter Details Date Type Department Care Team ([facility] st Contact Info) Description 09/11/2024 Telephone [facility] MEDICINE 230 [place] [address] Joyce Tapia MD [address] [place], [place] [phone] Med Refill Social History Tobacco Use Types [...] 9:02 AM EDT Dorothea Coronado [place] * Feeling tired or having little energy Answer Date of Assessment Author More than half the days 09/14/2024 9:02 AM EDT Doroteha Coronado [place] * Poor appetite or overeating Answer Date of Assessment Author Several days 09/14/2024 9:02 AM EDT Nakul Lloyd [place] * Feeling bad about yourself - or that you are a failure or have let yourself or your family down Answer Date of Assessment Author Not at all 09/14/2024 9:02 AM EDT Nakul Lloyd [place] * Trouble concentrating on things, [...] [id number] NAKUL RYDER - [address] [facility] documented in this encounter Plan of Treatment Upcoming Encounters Date Type Department Care Team (Late st Contact Info) Description 03/11/2025 11:30 AM EDT Telemedicine [facility] MED & PEDS [address] [place] [address] Joyce Tapia MD 505 [facility] NAKUL RYDER [address] 03/19/2025 10:30 AM EDT Office Visit [facility] MED & PEDS [address] [place] [address] Ayden Orellana MD 505 [place] [address] 04/03/2025 10:00 AM EDT Medication Management [facility] MED & PEDS 505 [place] [address] Cristal Muhammad PharmD 230 [place] [address] 06/04/2025 11:00 AM EST Clinical Support [facility] MED & PEDS 505 [place] [address] Katherine Casper, MAKEDA 505 [place], [place] [phone] documented as of this encounter Visit Diagnoses Not on filedocumented in this encounter Care Teams Plate And Weld Inspector Relationship Specialty Start Date End Date Joyce Tapia MD [address] [place] [address] PCP - General Family Medicine 06/19/12 documented as of this encounter
--- OUTSIDE RECORDS SUMMARY | 2025-03-01 10:47 | XMS_ITS | Encounter Summary ---
Author Organization [employer] Address 75 [facility] 7t [place] [address] Care Team Providers Care Bending Frame Operator Name Role Phone Joyce Tapia MD Primary Care Provider [phone] Reason for Visit * Reason Onset Date Comments Med Refill 07/19/2024 Encounter Details Date Type Department Care Team ([facility] st Contact Info) Description 07/19/2024 Refill [facility] MED & PEDS 505 [place], [place] [phone] Joyce Tapia MD 505 [place] [address] Social History Tobacco Use Types Packs/Day Years [...] Info) Description 03/11/2025 11:30 AM EDT Telemedicine [facility] MED & PEDS 505 [place] [address] Joyce Tapia MD 505 [place] [address] 03/19/2025 10:30 AM EDT Office Visit [facility] MED & PEDS [address] [place] [address] Ayden Orellana MD 505 [place] [address] 04/03/2025 10:00 AM EDT Medication Management [facility] MED & PEDS [address] [place] [address] Cristal Muhammad, PharmD 230 [place] [address] 06/04/2025 11:00 AM EST Clinical Support [facility] MED & PEDS [address] [place] [address] Katherine Casper, MAKEDA 505 [place] [address] documented as of this encounter Visit Diagnoses Not on filedocumented in this encounter Care Teams Bending Frame Operator Relationship Specialty Start Date End Date Joyce Tapia MD 230 [place] [address] PCP - General Family Medicine 06/19/12 documented as of this encounter
--- OUTSIDE RECORDS SUMMARY | 2025-03-01 10:47 | XMS_ITS | Encounter Summary ---
Author Organization [employer] Address 75 [facility] 7t [place] [address] Care Team Providers Care Vice President [employer] Name Role Phone Joyce Tapia MD Primary Care Provider [phone] Reason for Visit * Reason Onset Date Comments Med Refill 04/11/2024 Encounter Details Date Type Department Care Team ([facility] Contact Info) Description 04/11/2024 Telephone [facility] MED & PEDS 505 [place], [place] [phone] Joyce Tapia MD 505 [place] [address] Med Refill Social History Tobacco Use Types Packs/Day Years Used Date Smoking Tobacco: Every Day Cigarettes Passive Smoke Exposure: Never Smokeless Tobacco: Never Alcohol Use Standard Drinks/Week Comments Never 0 (1 standard drink = 0.6 oz pur e alcohol) Housing Stability Answer Date Recorded What is your housing situation today? I have ydaira han 01/04/[address] you [...] immediate release tablet To be sent to: [facility] - [address] documented in this encounter Plan of Treatment Upcoming Encounters Date Type Department Care Team ([facility] st Contact Info) Description 03/11/2025 11:30 AM EDT Telemedicine [facility] MED & PEDS 505 [place] [address] Joyce Tapia MD 505 [place] [address] 03/19/2025 10:30 AM EDT Office Visit [facility] MED & PEDS 505 [place] [address] Ayden Orellana MD 505 [place] [address] 04/03/2025 10:00 AM EDT Medication Management [facility] MED & PEDS 505 [place] [address] Cristal Muhammad, BobD 230 [place] [address] 06/04/2025 11:00 AM EST Clinical Support [facility] MED & PEDS 505 [place] [address] Katherine Casper, RN 505 [place] [address] documented as of this encounter Visit Diagnoses Not on filedocumented in this encounter Care Teams Vice President [employer] Relationship Specialty Start Date End Date Joyce Tapia MD 230 [place] [address] PCP - General Family Medicine 06/19/12 documented as of this encounter
--- OUTSIDE RECORDS SUMMARY | 2025-03-01 10:47 | XMS_ITS | Encounter Summary ---
Author Organization [employer] Address 75 [facility] 7t [place] [address] Care Team Providers Care Cook Frozen Dessert Name Role Phone Joyce Tapia MD Primary Care Provider [phone] Reason for Visit * Reason Onset Date Comments Med Refill 04/18/2024 Encounter Details Date Type Department Care Team ([facility] st Contact Info) Description 04/18/2024 Refill [facility] MEDICINE 230 [place], [place] [phone] Amber Palacio MD 230 [place], [place] [phone] Smoker Social History Tobacco Use Types Packs/Day [...] Info) Description 03/11/2025 11:30 AM EDT Telemedicine [facility] MED & PEDS 505 [place] [address] Joyce Tapia MD 505 [place] [address] 03/19/2025 10:30 AM EDT Office Visit [facility] MED & PEDS [address] [place] [address] Ayden Orellana MD 505 [place] [address] 04/03/2025 10:00 AM EDT Medication Management [facility] MED & PEDS [address] [place] [address] Cristal Muhammad, PharmD 230 [place] [address] 06/04/2025 11:00 AM EST Clinical Support [facility] MED & PEDS 505 [place] [address] Ktaherine Casper, MAKEDA 505 [place] [address] documented as of this encounter Visit Diagnoses Diagnosis Smoker Tobacco use disorder documented in this encounter Care Teams Cook Frozen Dessert Relationship Specialty Start Date End Date Joyce Tapia MD 230 [place] [address] PCP - General Family Medicine 06/19/12 documented as of this encounter
--- OUTSIDE RECORDS SUMMARY | 2025-03-01 10:47 | XMS_ITS | Encounter Summary ---
Author Organization [employer] Address 75 [facility] 7t [place] [address] Care Team Providers Care Instructor Pilot Name Role Phone Joyce Tapia MD Primary Care Provider [phone] Reason for Visit * Reason Onset Date Comments Med Refill 09/05/2024 Encounter Details Date Type Department Care Team (Late st Contact Info) Description 09/05/2024 Refill [facility] CHC MED & PEDS 505 [place], [place] [phone] Joyce Tapia MD 505 [place] [address] Status post surgical removal of nail matrix [...] Info) Description 03/11/2025 11:30 AM EDT Telemedicine [facility] MED & PEDS 505 [place] [address] Joyce Tapia MD 505 [place] [address] 03/19/2025 10:30 AM EDT Office Visit [facility] MED & PEDS [address] [place] [address] Ayden Orellana MD 505 [place] [address] 04/03/2025 10:00 AM EDT Medication Management [facility] MED & PEDS [address] [place] [address] Cristal Muhammad PharmD 230 [place] [address] 06/04/2025 11:00 AM EST Clinical Support [facility] MED & PEDS [address] [place] [address] Katherine Casper, MAKEDA 505 [place] [address] documented as of this encounter Visit Diagnoses Diagnosis Status post surgical removal of nail matrix of toe of left foot documented in this encounter Care Teams Instructor Pilot Relationship Specialty Start Date End Date Joyce Tapia MD 230 [place] [address] PCP - General Family Medicine 06/19/12 documented as of this encounter
--- OUTSIDE RECORDS SUMMARY | 2025-03-01 10:47 | XMS_ITS | Encounter Summary ---
Author Organization [employer] Address 75 [facility] 7t [place] [address] Care Team Providers Care Credit Relationship Manager Name Role Phone Joyce Tapia MD Primary Care Provider [phone] Reason for Visit * Reason Onset Date Comments Med Refill 07/25/2024 Encounter Details Date Type Department Care Team (Late st Contact Info) Description 07/25/2024 Refill [facility] MEDICINE 230 [place] [address] Emerson Keith MD 505 [place], [place] [phone] Status post surgical removal of nail matrix [...] Info) Description 03/11/2025 11:30 AM EDT Telemedicine [facility] MED & PEDS 505 [place] [address] Joyce Tapia MD 505 [place] [address] 03/19/2025 10:30 AM EDT Office Visit [facility] MED & PEDS [address] [place] [address] Ayden Orellana MD 505 [place] [address] 04/03/2025 10:00 AM EDT Medication Management [facility] MED & PEDS [address] [place] [address] Cristal Muhammad PharmD 230 [place] [address] 06/04/2025 11:00 AM EST Clinical Support [facility] MED & PEDS [address] [place] [address] Katherine Casper, MAKEDA 505 [place] [address] documented as of this encounter Visit Diagnoses Diagnosis Status post surgical removal of nail matrix of toe of left foot documented in this encounter Care Teams Credit Relationship Manager Relationship Specialty Start Date End Date Joyce Tapia MD 230 [place] [address] PCP - General Family Medicine 06/19/12 documented as of this encounter
--- OUTSIDE RECORDS SUMMARY | 2025-03-01 10:47 | XMS_ITS | Encounter Summary ---
Author Organization [employer] Address 75 [facility] 7t [place] [address] Care Team Providers Care Bonderizer Name Role Phone Joyce Tapia MD Primary Care Provider [phone] Reason for Visit * Reason Onset Date Comments Med Refill 04/19/2024 Encounter Details Date Type Department Care Team (Late st Contact Info) Description 04/19/2024 Refill [facility] MEDICINE [address] [place] [address] Joyce Tapia MD [address] [place] [address] Status post surgical removal of nail matrix [...] Info) Description 03/11/2025 11:30 AM EDT Telemedicine [facility] MED & PEDS [address] [place] [address] Joyce Tapia MD 505 [place] [address] 03/19/2025 10:30 AM EDT Office Visit [facility] MED & PEDS [address] [place] [address] Ayden Orellana MD 505 [place] [address] 04/03/2025 10:00 AM EDT Medication Management [facility] MED & PEDS [address] [place] [address] Cristal Muhammad PharmD [address] [place] [address] 06/04/2025 11:00 AM EST Clinical Support [facility] MED & PEDS [address] [place] [address] Katherine Casper, MAKEDA 505 [place] [address] documented as of this encounter Visit Diagnoses Diagnosis Status post surgical removal of nail matrix of toe of left foot documented in this encounter Care Teams Bonderizer Relationship Specialty Start Date End Date Joyce Tapia MD 230 [place] [address] PCP - General Family Medicine 06/19/12 documented as of this encounter
--- OUTSIDE RECORDS SUMMARY | 2025-03-01 10:48 | XMS_ITS | Encounter Summary ---
Author Organization [employer] Address 75 [facility] 7t [place] [address] Care Team Providers Care Tube Carrier Name Role Phone Joyce Tapia MD Primary Care Provider [phone] Reason for Visit * Reason Onset Date Comments Med Refill 08/01/2024 Encounter Details Date Type Department Care Team (Late st Contact Info) Description 08/01/2024 Refill [facility] MEDICINE 230 [place] [address] Emerson Keith MD 505 [place], [place] [phone] Status post surgical removal of nail matrix [...] Info) Description 03/11/2025 11:30 AM EDT Telemedicine [facility] MED & PEDS 505 [place] [address] Joyce Tapia MD 505 [place] [address] 03/19/2025 10:30 AM EDT Office Visit [facility] MED & PEDS [address] [place] [address] Ayden Orellana MD 505 [place] [address] 04/03/2025 10:00 AM EDT Medication Management [facility] MED & PEDS [address] [place] [address] Cristal Muhammad PharmD 230 [place] [address] 06/04/2025 11:00 AM EST Clinical Support [facility] MED & PEDS [address] [place] [address] Katherine Casper, MAKEDA 505 [place] [address] documented as of this encounter Visit Diagnoses Diagnosis Status post surgical removal of nail matrix of toe of left foot documented in this encounter Care Teams Tube Carrier Relationship Specialty Start Date End Date Joyce Tapia MD 230 [place] [address] PCP - General Family Medicine 06/19/12 documented as of this encounter
--- OUTSIDE RECORDS SUMMARY | 2025-03-01 10:48 | XMS_ITS | Encounter Summary ---
Author Organization [employer] Address 75 [facility] 7[place] [address] Care Team Providers Care Contract Implementation Analyst Name Role Phone Joyce Tapia MD Primary Care Provider [phone] Reason for Visit * Reason Comments Med Refill Encounter Details Date Type Department Care Team (Late Contact Info) Description 10/24/2023 Refill [facility] MEDICINE 230 [place], [place] [phone] Joyce Tapia MD 505 [place] [address] Status post surgical removal of nail matrix [...] Info) Description 03/11/2025 11:30 AM EDT Telemedicine [facility] CH[facility] MED & PEDS 505 [place], [place] [phone] Joyce Tapia MD 505 [place] [address] 03/19/2025 10:30 AM EDT Office Visit [facility] MED & PEDS 505 [place] [address] Ayden Orellana MD 505 [place] [address] 04/03/2025 10:00 AM EDT Medication Management [facility] MED & PEDS 505 [place] [address] Cristal Muhammad PharmD 230 [place] [address] 06/04/2025 11:00 AM EST Clinical Support [facility] MED & PEDS 505 [place] [address] Katherine Casper RN 505 [place] [address] documented as of this encounter Visit Diagnoses Diagnosis Status post surgical removal of nail matrix of toe of left foot documented in this encounter Care Teams Contract Implementation Analyst Relationship Specialty Start Date End Date Joyce Tapia MD 230 [place] [address] PCP - General Family Medicine 06/19/12 documented as of this encounter
--- OUTSIDE RECORDS SUMMARY | 2025-03-01 10:48 | XMS_ITS | Encounter Summary ---
Author Organization [employer] Address 75 [facility] 7t [place] [address] Care Team Providers Care Rotary Soil Stabilizer Operator Name Role Phone Joyce Tapia MD Primary Care Provider [phone] Reason for Visit * Reason Onset Date Comments Med Refill 02/23/2025 Encounter Details Date Type Department Care Team ([facility] st Contact Info) Description 02/23/2025 Refill [facility] MED & PEDS 505 [place] [address] Ayden Orellana MD 505 [place] [address] Status post surgical removal of nail matrix [...] 03/11/2025 11:30 AM EDT Telemedicine [facility] MED & PEDS 505 [place] [address] Joyce Tapia MD 505 [place] [address] 03/19/2025 10:30 AM EDT Office Visit [facility] MED & PEDS 505 [place] [address] Ayden Orellana MD 505 [place] [address] 04/03/2025 10:00 AM EDT Medication Management [facility] MED & PEDS 505 [place] [address] Cristal Muhammad, oBbD 230 [place] [address] 06/04/2025 11:00 AM EST Clinical Support [facility] MED & PEDS 505 [place] [address] Katherine Casper, RN 505 [place] [address] documented as of this encounter Visit Diagnoses Diagnosis Status post surgical removal of nail matrix of toe of left foot documented in this encounter Additional Health Concerns Assessment Noted Time PHQ-9 Depression Total Score: 7 09/15/19 25 9:02 AM EDT documented as of this encounter Care Teams Rotary Soil Stabilizer Operator Relationship Specialty Start Date End Date Joyce Tapia MD [address] [place] [address] PCP - General Family Medicine 06/19/12 documented as of this encounter
--- OUTSIDE RECORDS SUMMARY | 2025-03-01 10:48 | XMS_ITS | Encounter Summary ---
Author Organization [employer] Address [address] [place] [address] 7 [place] [address] Care Team Providers Care Agricultural Sales Representative Name Role Phone Joyce Tapia MD Primary Care Provider [phone] Reason for Visit * Reason Comments Med Refill Encounter Details Date Type Department Care Team (Late st Contact Info) Description 11/04/2023 Refill [facility] MED & PEDS 505 [place], [place] [phone] Joyce Tapia MD 505 [place] [address] Status post surgical removal of nail matrix [...] 03/11/2025 11:30 AM EDT Telemedicine [facility] MED & PEDS 505 [place], [place] [phone] Joyce Tapia MD 505 [place] [address] 03/19/2025 10:30 AM EDT Office Visit [facility] MED & PEDS 505 [place] [address] Ayden Orellana MD 505 [place] [address] 04/03/2025 10:00 AM EDT Medication Management [facility] MED & PEDS 505 [place] [address] Cristal Muhammad PharmD 230 [place] [address] 06/04/2025 11:00 AM EST Clinical Support [facility] MED & PEDS 505 [place] [address] Katherine Casper, MAKEDA 505 [place] [address] documented as of this encounter Visit Diagnoses Diagnosis Status post surgical removal of nail matrix of toe of left foot documented in this encounter Care Teams Agricultural Sales Representative Relationship Specialty Start Date End Date Joyce Tapia MD 230 [place] [address] PCP - General Family Medicine 06/19/12 documented as of this encounter
--- OUTSIDE RECORDS SUMMARY | 2025-03-01 10:48 | XMS_ITS | Encounter Summary ---
Author Organization [employer] Address 75 [facility] 7t [place] [address] Care Team Providers Care Transport Rn Name Role Phone Joyce Tapia MD Primary Care Provider [phone] Reason for Visit * Reason Onset Date Comments Referral 03/09/2023 Encounter Details Date Type Department Care Team ([facility] Contact Info) Description 03/09/2023 Telephone [facility] CHC MED & PEDS 505 [place], [place] [phone] Joyce Tapia MD 505 [place] [address] Referral Social History Tobacco Use Types Packs/Day [...] wait that long. Please contact pt at [phone] documented in this encounter Plan of Treatment Upcoming Encounters Date Type Department Care Team (Late st Contact Info) Description 03/11/2025 11:30 AM EDT Telemedicine [facility] MED & PEDS 505 [place] [address] Joyce Tapia MD 505 [place] [address] 03/19/2025 10:30 AM EDT Office Visit [facility] MED & PEDS [address] [place] [address] Ayden Orellana MD 505 [place] [address] 04/03/2025 10:00 AM EDT Medication Management [facility] MED & PEDS [address] [place] [address] Cristal Muhammad PharmD 230 [place] [address] 06/04/2025 11:00 AM EST Clinical Support [facility] MED & PEDS [address] [place] [address] Katherine Casper, MAKEDA 505 [place] [address] documented as of this encounter Visit Diagnoses Not on filedocumented in this encounter Care Teams Transport Rn Relationship Specialty Start Date End Date Joyce Tapia MD 230 [place] [address] PCP - General Family Medicine 06/19/12 documented as of this encounter
--- OUTSIDE RECORDS SUMMARY | 2025-03-01 10:48 | XMS_ITS | Encounter Summary ---
Author Organization [employer] Address 75 [facility] 7t [place] [address] Care Team Providers Care Brand Advisor Name Role Phone Joyce Tapia MD Primary Care Provider [phone] Reason for Visit * Reason Onset Date Comments Med Refill 08/15/2024 Encounter Details Date Type Department Care Team ([facility] st Contact Info) Description 08/15/2024 Refill [facility] MED & PEDS 505 [place], [place] [phone] Joyce Tapia MD 505 [place] [address] Status post surgical removal of nail matrix [...] Description 03/11/2025 11:30 AM EDT Telemedicine [facility] MED & PEDS 505 [place] [address] Joyce Tapia MD 505 [place] [address] 03/19/2025 10:30 AM EDT Office Visit [facility] MED & PEDS [address] [place] [address] Ayden Orellana MD 505 [place] [address] 04/03/2025 10:00 AM EDT Medication Management [facility] MED & PEDS [address] [place] [address] Cristal Muhammad PharmD 230 [place] [address] 06/04/2025 11:00 AM EST Clinical Support [facility] MED & PEDS [address] [place] [address] Katherine Casper, MAKEDA 505 [place] [address] documented as of this encounter Visit Diagnoses Diagnosis Status post surgical removal of nail matrix of toe of left foot documented in this encounter Care Teams Brand Advisor Relationship Specialty Start Date End Date Joyce Tapia MD 230 [place] [address] PCP - General Family Medicine 06/19/12 documented as of this encounter
--- OUTSIDE RECORDS SUMMARY | 2025-03-01 10:48 | XMS_ITS | Encounter Summary ---
Author Organization [employer] Address 75 [facility] 7t [place] [address] Care Team Providers Care Bottom Turning Lathe Turner Name Role Phone Joyce Tapia MD Primary Care Provider [phone] Reason for Visit * Reason Onset Date Comments Med Refill 05/08/2024 Encounter Details Date Type Department Care Team (Late st Contact Info) Description 05/08/2024 Refill [facility] MED[facility] 230 [place] [address] Joyce Tapia MD [address] [place] [address] Muscle spasm Social History Tobacco Use Types [...] Description 03/11/2025 11:30 AM EDT Telemedicine [facility] 505 [place] [address] Joyce Tapia MD 505 [place] [address] 03/19/2025 10:30 AM EDT Office Visit [facility] [address] [place] [address] Ayden Orellana MD 505 [place] [address] 04/03/2025 10:00 AM EDT Medication Management [facility] [address] [place] [address] Cristal Muhammad, PharmD 230 [place] [address] 06/04/2025 11:00 AM EST Clinical Support [facility] 505 [place] [address] Katherine Casper, MAKEDA 505 [place] [address] documented as of this encounter Visit Diagnoses Diagnosis Muscle spasm Spasm of muscle documented in this encounter Care Teams Bottom Turning Lathe Turner Relationship Specialty Start Date End Date Joyce Taipa MD 230 [place] [address] PCP - General Family Medicine 06/19/12 documented as of this encounter
--- OUTSIDE RECORDS SUMMARY | 2025-03-01 10:48 | XMS_ITS | Encounter Summary ---
Author Organization [employer] Address 75 [facility] 7t [place] [address] Care Team Providers Care Disintegrator Operator Name Role Phone Joyce Tapia MD Primary Care Provider [phone] Reason for Visit * Reason Onset Date Comments Med Refill 10/25/2024 Encounter Details Date Type Department Care Team ([facility] st Contact Info) Description 10/25/2024 Refill [facility] MED [facility] PEDS 505 [place] [address] Joyce Tapia MD 505 [place] [address] Social History Tobacco Use Types Packs/Day Years [...] [facility] MED [facility] 505 [place] [address] Joyce Tapia MD 505 [place] [address] 03/19/2025 10:30 AM EDT Office Visit [facility] 505 [place] [address] Ayden Orellana MD 505 [place] [address] 04/03/2025 10:00 AM EDT Medication Management [facility]ED[facility] 505 [place] [address] Cristal Muhammad, PharmD 230 [place] [address] 06/04/2025 11:00 AM EST Clinical Support [facility] 505 [place] [address] Katherine Casper, MAKEDA 505 [place] [address] documented as of this encounter Visit Diagnoses Not on filedocumented in this encounter Additional Health Concerns Assessment Noted Time PHQ-9 Depression Total Score: 7 09/15/19 25 9:02 AM EDT documented as of this encounter Care Teams Disintegrator Operator Relationship Specialty Start Date End Date Joyce Tapia MD [address] [place] [address] PCP - General Family Medicine 06/19/12 documented as of this encounter
--- OUTSIDE RECORDS SUMMARY | 2025-03-01 10:48 | XMS_ITS | Encounter Summary ---
Author Organization [employer] Address 75 [facility] 7t [place] [address] Care Team Providers Care Tungsten Refiner Name Role Phone Joyce Tapia MD Primary Care Provider [phone] Reason for Visit * Reason Comments Med Refill Encounter Details Date Type Department Care Team (Late Contact Info) Description 07/29/2023 Refill [facility] 230 [place], [place] [phone] Joyce Tapia MD 505 [place] [address] Status post surgical removal of nail matrix [...] Info) Description 03/11/2025 11:30 AM EDT Telemedicine [facility] MED & PEDS 505 [place], [place] [phone] Joyce Tapia MD 505 [place] [address] 03/19/2025 10:30 AM EDT Office Visit [facility] 505 [place] [address] Ayden Orellana MD 505 [place] [address] 04/03/2025 10:00 AM EDT Medication Management [facility] 505 [place] [address] Cristal Muhammad PharmD 230 [place] [address] 06/04/2025 11:00 AM EST Clinical Support [facility] 505 [place] [address] Katherine Casper RN 505 [place] [address] documented as of this encounter Visit Diagnoses Diagnosis Status post surgical removal of nail matrix of toe of left foot documented in this encounter Care Teams Tungsten Refiner Relationship Specialty Start Date End Date Joyce Tapia MD 230 [place] [address] PCP - General Family Medicine 06/19/12 documented as of this encounter
--- OUTSIDE RECORDS SUMMARY | 2025-03-01 10:48 | XMS_ITS | Encounter Summary ---
Author Organization [email or web address] Address 75 [facility] 7t [place] [address] Care Team Providers Care Water Supply Engineer Name Role Phone Joyce Tapia MD Primary Care Provider [phone] Reason for Visit * Reason Onset Date Comments Med Refill 05/21/2024 Encounter Details Date Type Department Care Team ([facility] st Contact Info) Description 05/21/2024 Refill [facility] MED & PEDS 505 [place], [place] [phone] Joyce Tapia MD 505 [place] [address] Social History Tobacco Use Types Packs/Day Years [...] Description 03/11/2025 11:30 AM EDT Telemedicine [facility]ED[facility] 505 [place] [address] Joyce Tapia MD 505 [place] [address] 03/19/2025 10:30 AM EDT Office Visit [facility]ED[facility] [address] [place] [address] Ayden Orellana MD 505 [place] [address] 04/03/2025 10:00 AM EDT Medication Management [facility] [address] [place] [address] Cristal Muhammad, PharmD 230 [place] [address] 06/04/2025 11:00 AM EST Clinical Support [facility] [address] [place] [address] Katherine Casper, MAKEDA 505 [place] [address] documented as of this encounter Visit Diagnoses Not on filedocumented in this encounter Care Teams Water Supply Engineer Relationship Specialty Start Date End Date Joyce Tapia MD 230 [place] [address] PCP - General Family Medicine 06/19/12 documented as of this encounter
--- OUTSIDE RECORDS SUMMARY | 2025-03-01 10:48 | XMS_ITS | Encounter Summary ---
Author Organization [employer] Address 75 [facility] 7t [place] [address] Care Team Providers Care Transition Mgr Name Role Phone Joyce Tapia MD Primary Care Provider [phone] Reason for Visit * Reason Onset Date Comments Med Refill 02/28/2024 Encounter Details Date Type Department Care Team ([facility] st Contact Info) Description 02/28/2024 Telephone [facility] MEDICINE 230 [place] [address] Joyce Tapia MD [address] [place], [place] [phone] Med Refill Social History Tobacco Use Types [...] immediate release tablet To be sent to: [facility] - [place], [place] - [address] [place] [address] documented in this encounter Plan of Treatment Upcoming Encounters Date Type Department Care Team ([facility] st Contact Info) Description 03/11/2025 11:30 AM EDT Telemedicine [facility] MED & PEDS 505 [place] [address] Joyce Tapia MD 505 [place] [address] 03/19/2025 10:30 AM EDT Office Visit [facility] 505 [place] [address] Ayden Orellana MD 505 [place] [address] 04/03/2025 10:00 AM EDT Medication Management [facility] 505 [place] [address] Cristal Muhammad, PharmD 230 [place] [address] 06/04/2025 11:00 AM EST Clinical Support [facility] MED [facility] PEDS [address] [place] [address] Katherine Casper, RN [address] [place] [address] documented as of this encounter Visit Diagnoses Not on filedocumented in this encounter Care Teams Transition Mgr Relationship Specialty Start Date End Date Joyce Tapia MD [address] [place] [address] PCP - General Family Medicine 06/19/12 documented as of this encounter
--- OUTSIDE RECORDS SUMMARY | 2025-03-01 10:48 | XMS_ITS | Encounter Summary ---
Author Organization [employer] Address 75 [facility] 7t [place] [address] Care Team Providers Care Diabetes Physician Name Role Phone Joyce Tapia MD Primary Care Provider [phone] Reason for Visit * Reason Onset Date Comments Med Refill 06/05/2024 Encounter Details Date Type Department Care Team (Late st Contact Info) Description 06/05/[address] [facility] [address] [facility] [place] [address] Joyce Tapia MD [address] [place], [place] [phone] Status post surgical removal of nail matrix [...] [facility] MED & PEDS [address] [place] [address] Joyce Tapia MD 505 [place] [address] 03/19/2025 10:30 AM EDT Office Visit [facility] MED & PEDS [address] [place] [address] Ayden Orellana MD 505 [place] [address] 04/03/2025 10:00 AM EDT Medication Management [facility] MED & PEDS [address] [place] [address] Cristal Muhammad PharmD [address] [place] [address] 06/04/2025 11:00 AM EST Clinical Support [facility]EDS [address] [place] [address] Katherine Casper, MAKEDA 505 [place] [address] documented as of this encounter Visit Diagnoses Diagnosis Status post surgical removal of nail matrix of toe of left foot documented in this encounter Care Teams Diabetes Physician Relationship Specialty Start Date End Date Joyce Tapia MD 230 [place] [address] PCP - General Family Medicine 06/19/12 documented as of this encounter
--- OUTSIDE RECORDS SUMMARY | 2025-03-01 10:48 | XMS_ITS | Encounter Summary ---
Author Organization [employer] Address [address] [facility] 7t [place] [address] Care Team Providers Care Dimension Warehouse Supervisor Name Role Phone Joyce Tapia MD Primary Care Provider [phone] Reason for Visit * Reason Onset Date Comments Med Refill 07/27/2024 Encounter Details Date Type Department Care Team (Late st Contact Info) Description 07/27/2024 Refill [facility] MEDICINE 230 [place] [address] Emerson Keith MD 505 [place], [place] [phone] Status post surgical removal of nail matrix [...] 03/11/2025 11:30 AM EDT Telemedicine [facility] MED & PEDS 505 [place] [address] Joyce Tapia MD 505 [place] [address] 03/19/2025 10:30 AM EDT Office Visit [facility] MED & PEDS [address] [place] [address] Ayden Orellana MD 505 [place] [address] 04/03/2025 10:00 AM EDT Medication Management [facility] MED & PEDS [address] [place] [address] Cristal Muhammad PharmD 230 [place] [address] 06/04/2025 11:00 AM EST Clinical Support [facility] MED & PEDS [address] [place] [address] Katherine Casper, MAKEDA 505 [place] [address] documented as of this encounter Visit Diagnoses Diagnosis Status post surgical removal of nail matrix of toe of left foot documented in this encounter Care Teams Dimension Warehouse Supervisor Relationship Specialty Start Date End Date Joyce Tapia MD 230 [place] [address] PCP - General Family Medicine 06/19/12 documented as of this encounter
--- OUTSIDE RECORDS SUMMARY | 2025-03-01 10:48 | XMS_ITS | Encounter Summary ---
Author Organization [email or web address] Address 75 [facility] 7t [place] [address] Care Team Providers Care Sales Agent Food Vending Service Name Role Phone Joyce Tapia MD Primary Care Provider [phone] Reason for Visit * Reason Comments Med Refill Encounter Details Date Type Department Care Team (Late Contact Info) Description 10/25/2022 Refill [facility] MED & PEDS 505 [place], [place] [phone] Jenny Schmidt MD 505 [place] [address] Status post surgical removal of nail matrix [...] Upcoming Encounters Date Type Department Care Team ([facility] Contact Info) Description 03/11/2025 11:30 AM EDT Telemedicine [facility] MED & PEDS 505 [place] [address] Joyce Tapia MD 505 [place] [address] 03/19/2025 10:30 AM EDT Office Visit [facility] MED & PEDS 505 [place] [address] Ayden Orellana MD 505 [place] [address] 04/03/2025 10:00 AM EDT Medication Management [facility] MED & PEDS 505 [place] [address] Cristal Muhammad PharmD 230 [place] [address] 06/04/2025 11:00 AM EST Clinical Support [facility] MED & PEDS 505 [place] [address] Katherine Casper, MAKEDA 505 [place] [address] documented as of this encounter Visit Diagnoses Diagnosis Status post surgical removal of nail matrix of toe of left foot documented in this encounter Care Teams Sales Agent Food Vending Service Relationship Specialty Start Date End Date Joyce Tapia MD 230 [place] [address] PCP - General Family Medicine 06/19/12 documented as of this encounter
--- OUTSIDE RECORDS SUMMARY | 2025-03-01 10:48 | XMS_ITS | Encounter Summary ---
Author Organization [employer] Address 75 [facility] 7t [place] [address] Care Team Providers Care Copper Miner Blasting Name Role Phone Joyce Tapia MD Primary Care Provider [phone] Encounter Details Date Type Department Care Team ([facility] st Contact Info) Description 2024 Orders Only [facility] MED & PEDS 505 [place], [place] [phone] Joyce Tapia MD 505 [place], [place] [phone] Social History Tobacco Use Types Packs/Day Years [...] Upcoming Encounters Date Type Department Care Team ([facility] st Contact Info) Description 03/11/2025 11:30 AM EDT Telemedicine [facility] MED & PEDS 505 [place] [address] Joyce Tapia MD 505 [place] [address] 03/19/2025 10:30 AM EDT Office Visit [facility] MED & PEDS 505 [place] [address] Ayden Orellana MD 505 [place] [address] 04/03/2025 10:00 AM EDT Medication Management [facility] MED & PEDS [address] [place] [address] Cristal Muhammad, PharmD 230 [place] [address] 06/04/2025 11:00 AM EST Clinical Support [facility] MED & PEDS 505 [place] [address] Katherine Casper, MAKEDA 505 [place] [address] documented as of this encounter Visit Diagnoses Not on filedocumented in this encounter Additional Health Concerns Assessment Noted Time PHQ-9 Depression Total Score: 7 09/15/19 25 9:02 AM EDT documented as of this encounter Care Teams Copper Miner Blasting Relationship Specialty Start Date End Date Joyce Tapia MD 230 [place] [address] PCP - General Family Medicine 06/19/12 documented as of this encounter
--- OUTSIDE RECORDS SUMMARY | 2025-03-01 10:48 | XMS_ITS | Encounter Summary ---
Author Organization [employer] Address [address] [place] [address] 7 [place] [address] Care Team Providers Care Planer Chain Offbearer Name Role Phone Joyce Tapia MD Primary Care Provider [phone] Reason for Visit * Reason Comments Med Refill Encounter Details Date Type Department Care Team (Late st Contact Info) Description 10/11/2023 Refill [facility] MEDICINE 230 [place], [place] [phone] Ayden Orellana MD 505 [place] [address] Status post surgical removal of nail matrix [...] Info) Description 03/11/2025 11:30 AM EDT Telemedicine [facility] CH[facility] MED & PEDS 505 [place], [place] [phone] Joyce Tapia MD 505 [place] [address] 03/19/2025 10:30 AM EDT Office Visit [facility] MED & PEDS 505 [place] [address] Ayden Orellana MD 505 [place] [address] 04/03/2025 10:00 AM EDT Medication Management [facility] MED & PEDS 505 [place] [address] Cristal Muhammad PharmD 230 [place] [address] 06/04/2025 11:00 AM EST Clinical Support [facility] MED & PEDS 505 [place] [address] Katherine Casper, MAKEDA 505 [place] [address] documented as of this encounter Visit Diagnoses Diagnosis Status post surgical removal of nail matrix of toe of left foot documented in this encounter Care Teams Planer Chain Offbearer Relationship Specialty Start Date End Date Joyce Tapia MD 230 [place] [address] PCP - General Family Medicine 06/19/12 documented as of this encounter
--- OUTSIDE RECORDS SUMMARY | 2025-03-01 10:48 | XMS_ITS | Encounter Summary ---
Author Organization [employer] Address 75 [facility] 7t [place] [address] Care Team Providers Care Shoe Puller Name Role Phone Joyce Tapia MD Primary Care Provider [phone] Reason for Visit * Reason Onset Date Comments Referral-OBGYN 02/26/2025 Encounter Details Date Type Department Care Team ([facility] st Contact Info) Description 02/26/2025 Telephone [facility] 230 [place], [place] [phone] Myra Connors MD 230 [place] [address] Referral-OBGYN Social History Tobacco Use Types Packs/Day Years [...] Miscellaneous Notes * Telephone Encounter - Didi Hernandez - 02/26/2025 1:41 PM EDT OBGYN referral was declined at [facility] and [facility] due to DX. Patient refuses to go to [facility]. Referral sent to final place that accepts DX. Office: [facility] [address] [place] [address] Tel. [phone]. [phone]. Letter mailed to patient. documented in this encounter Plan of Treatment Upcoming Encounters Date Type Department Care Team (Late st Contact Info) Description 03/11/2025 11:30 AM EDT Telemedicine [facility] MED & PEDS 505 [place] [address] Joyce Tapia MD 505 [place] [address] 03/19/2025 10:30 AM EDT Office Visit [facility]ED[facility] 505 [place] [address] Ayden Orellana MD 505 [place] [address] 04/03/2025 10:00 AM EDT Medication Management [facility] PED[facility] 505 [place] [address] Cristal Muhammad PharmD 230 [place] [address] 06/04/2025 11:00 AM EST Clinical Support [facility] 505 [place] [address] Katherine Casper, RN 505 [place], [place] documented as of this encounter Visit Diagnoses Not on filedocumented in this encounter Additional Health Concerns Assessment Noted Time PHQ-9 Depression Total Score: 7 09/15/19 25 9:02 AM EDT documented as of this encounter Care Teams Shoe Puller Relationship Specialty Start Date End Date Joyce Tapia MD 230 [place] [address] PCP - General Family Medicine 06/19/12 documented as of this encounter
--- OUTSIDE RECORDS SUMMARY | 2025-03-01 10:48 | XMS_ITS | Encounter Summary ---
Author Organization [employer] Address 75 [facility] 7t [place] [address] Care Team Providers Care Miniature Set Designer Name Role Phone Joyce Tapia MD Primary Care Provider [phone] Reason for Visit * Reason Comments Med Refill Encounter Details Date Type Department Care Team (Late st Contact Info) Description 06/06/2023 Refill [facility] PEDS 505 [place], [place] [phone] Ev Lewis ANP 230 [place] [address] Status post surgical removal of nail matrix [...] EDT Telemedicine [facility] [address] [place], [place] [phone] Joyce Tapia MD 505 [place] [address] 03/19/2025 10:30 AM EDT Office Visit [facility] 505 [place] [address] Ayden Orellana MD 505 [place] [address] 04/03/2025 10:00 AM EDT Medication Management [facility] [address] [place] [address] Cristal Muhammad PharmD 230 [place] [address] 06/04/2025 11:00 AM EST Clinical Support [facility] [address] [place] [address] Katherine Casper RN 505 [place] [address] documented as of this encounter Visit Diagnoses Diagnosis Status post surgical removal of nail matrix of toe of left foot documented in this encounter Care Teams Miniature Set Designer Relationship Specialty Start Date End Date Joyce Tapia MD 230 [place] [address] PCP - General Family Medicine 06/19/12 documented as of this encounter
--- OUTSIDE RECORDS SUMMARY | 2025-03-01 10:48 | XMS_ITS | Encounter Summary ---
Author Organization [employer] Address 75 [facility] 7t [place] [address] Care Team Providers Care Travel Sales Consultant Name Role Phone Joyce Tapia MD Primary Care Provider [phone] Reason for Visit * Reason Onset Date Comments Med Refill 07/13/2024 Encounter Details Date Type Department Care Team (Late st Contact Info) Description 07/13/2024 Refill [facility] MEDICINE 230 [place], [place] [phone] Amber Palacio MD 230 [place], [place] [phone] Smoker Social History Tobacco Use Types Packs/Day [...] 03/11/2025 11:30 AM EDT Telemedicine [facility] MED & PEDS 505 [place] [address] Joyce Tapia MD 505 [place] [address] 03/19/2025 10:30 AM EDT Office Visit [facility] MED & PEDS [address] [place] [address] Ayden Orellana MD 505 [place] [address] 04/03/2025 10:00 AM EDT Medication Management [facility] MED & PEDS [address] [place] [address] Cristal Muhammad, PharmD 230 [place] [address] 06/04/2025 11:00 AM EST Clinical Support [facility] MED & PEDS 505 [place] [address] Katherine Casper, MAKEDA 505 [place] [address] documented as of this encounter Visit Diagnoses Diagnosis Smoker Tobacco use disorder documented in this encounter Care Teams Travel Sales Consultant Relationship Specialty Start Date End Date Joyce Tapia MD 230 [place] [address] PCP - General Family Medicine 06/19/12 documented as of this encounter
--- OUTSIDE RECORDS SUMMARY | 2025-03-01 10:48 | XMS_ITS | Encounter Summary ---
Author Organization [employer] Address 75 [facility] 7t [place] [address] Care Team Providers Care Wares Sorter Name Role Phone Joyce Tapia MD Primary Care Provider [phone] Reason for Visit * Reason Onset Date Comments Med Refill 10/24/2024 Encounter Details Date Type Department Care Team (Late st Contact Info) Description 10/24/2024 Refill [facility] MEDICINE 230 [place] [address] Ayden Orellana MD 505 [place] [address] Status post surgical removal of nail matrix [...] [facility] 505 [place] [address] Joyce Tapia MD 505 [place] [address] 03/19/2025 10:30 AM EDT Office Visit [facility] 505 [place] [address] Ayden Orellana MD 505 [place] [address] 04/03/2025 10:00 AM EDT Medication Management [facility] 505 [place] [address] Cristal Muhammad, BobD 230 [place] [address] 06/04/2025 11:00 AM EST Clinical Support [facility] 505 [place] [address] Katherine Casper, MAKEDA 505 [place] [address] documented as of this encounter Visit Diagnoses Diagnosis Status post surgical removal of nail matrix of toe of left foot documented in this encounter Additional Health Concerns Assessment Noted Time PHQ-9 Depression Total Score: 7 09/15/19 25 9:02 AM EDT documented as of this encounter Care Teams Wares Sorter Relationship Specialty Start Date End Date Joyce Tapia MD [address] [place] [address] PCP - General Family Medicine 06/19/12 documented as of this encounter
--- OUTSIDE RECORDS SUMMARY | 2025-03-01 10:48 | XMS_ITS | Encounter Summary ---
Author Organization [email or web address] Address [address] [facility] 7t [place] [address] Care Team Providers Care Assembler Gold Frame Name Role Phone Joyce Tapia MD Primary Care Provider Reason for Visit * Reason Onset Date Comments Med Refill 10/24/2023 Encounter Details Date Type Department Care Team ([facility] st Contact Info) Description 10/24/2023 Telephone [facility] MEDICINE [address] [place], [place] [phone] Joyce Tapia MD [address] [place] [address] Med Refill Social History Tobacco Use Types [...] immediate release tablet To be sent to: [facility] [place] - [address] [facility] documented in this encounter Plan of Treatment Upcoming Encounters Date Type Department Care Team (Late st Contact Info) Description 03/11/2025 11:30 AM EDT Telemedicine [facility] MED & PEDS 505 [place] [address] Joyce Tapia MD 505 [place] [address] 03/19/2025 10:30 AM EDT Office Visit [facility] 505 [place] [address] Ayden Orellana MD 505 [place] [address] 04/03/2025 10:00 AM EDT Medication Management [facility] [address] [place] [address] Cristal Muhammad PharmD 230 [place] [address] 06/04/2025 11:00 AM EST Clinical Support [facility] 505 [place] [address] Katherine Casper, MAKEDA 505 [place] [address] documented as of this encounter Visit Diagnoses Not on filedocumented in this encounter Care Teams Assembler Gold Frame Relationship Specialty Start Date End Date Joyce Tapia MD 230 [place] [address] PCP - General Family Medicine 06/19/12 documented as of this encounter
--- OUTSIDE RECORDS SUMMARY | 2025-03-01 10:48 | XMS_ITS | Encounter Summary ---
Author Organization [employer] Address [address] [facility] 7t [place] [address] Care Team Providers Care Second Shift Supervisor Name Role Phone Joyce Tapia MD Primary Care Provider [phone] Reason for Visit * Reason Onset Date Comments Appt 08/09/2024 Encounter Details Date Type Department Care Team ([facility] st Contact Info) Description 08/09/2024 Telephone [facility] MEDICINE 230 [place] [address] Joyce Tapia MD [address] [place], [place] [phone] Appt Social History Tobacco Use Types Packs/Day [...] can be changed for a phone visit. [phone] documented in this encounter Plan of Treatment Upcoming Encounters Date Type Department Care Team (Late st Contact Info) Description 03/11/2025 11:30 AM EDT Telemedicine [facility] MED & PEDS 505 [place] [address] Joyce Tapia MD 505 [place] [address] 03/19/2025 10:30 AM EDT Office Visit [facility] MED & PEDS 505 [place] [address] Ayden Orellana MD 505 [place] [address] 04/03/2025 10:00 AM EDT Medication Management [facility] MED & PEDS [address] [place] [address] Cristal Muhammad, PharmD 230 [place] [address] 06/04/2025 11:00 AM EST Clinical Support [facility] MED & PEDS [address] [place] [address] Katherine Casper, MAKEDA [address] [place] [address] documented as of this encounter Visit Diagnoses Not on filedocumented in this encounter Care Teams Second Shift Supervisor Relationship Specialty Start Date End Date Joyce Tapia MD [address] [place] [address] PCP - General Family Medicine 06/19/12 documented as of this encounter
--- OUTSIDE RECORDS SUMMARY | 2025-03-01 10:48 | XMS_ITS | Encounter Summary ---
Author Organization [employer] Address [address] [place] [address] 7[place] [address] Care Team Providers Care Splitter Head Name Role Phone Joyec Tapia MD Primary Care Provider [phone] Reason for Visit * Reason Comments Med Refill Encounter Details Date Type Department Care Team (Late st Contact Info) Description 10/03/2023 Refill [facility] MED & PEDS [address] [place] [address] Joyce Tapia MD 505 [place] [address] Arthropathy Social History Tobacco Use Types Packs/Day [...] Info) Description 03/11/2025 11:30 AM EDT Telemedicine [facility] MED & PEDS 505 [place] [address] Joyce Tapia MD [address] [place] [address] 03/19/2025 10:30 AM EDT Office Visit [facility] MED [facility]EDS [address] [place] [address] Ayden Orellana MD 505 [place] [address] 04/03/2025 10:00 AM EDT Medication Management [facility] MED & PEDS [address] [place] [address] Cristal Muhammad PharmD 230 [place] [address] 06/04/2025 11:00 AM EST Clinical Support [facility] MED & PEDS [address] [place] [address] Katherine Casper RN 505 [place] [address] documented as of this encounter Visit Diagnoses Diagnosis Arthropathy Unspecified arthropathy, site unspecified documented in this encounter Care Teams Splitter Head Relationship Specialty Start Date End Date Joyce Tapia MD [address] [place] [address] PCP - General Family Medicine 06/19/12 documented as of this encounter
--- OUTSIDE RECORDS SUMMARY | 2025-03-01 10:48 | XMS_ITS | Encounter Summary ---
Author Organization [employer] Address [address] [facility] 7t [place] [address] Care Team Providers Care Veterans Employment Representative Name Role Phone Joyce Tapia MD Primary Care Provider [phone] Reason for Visit * Reason Onset Date Comments Med Refill 02/25/2025 Encounter Details Date Type Department Care Team ([facility] st Contact Info) Description 02/25/2025 Refill [facility] MED & PEDS 505 [place] [address] Ayden Orellana MD 505 [place] [address] Status post surgical removal of nail matrix [...] 03/11/2025 11:30 AM EDT Telemedicine [facility] MED & PEDS 505 [place] [address] Joyce Tapia MD 505 [place] [address] 03/19/2025 10:30 AM EDT Office Visit [facility] [address] [place] [address] Ayden Orellana MD 505 [place] [address] 04/03/2025 10:00 AM EDT Medication Management [facility] [address] [place] [address] Cristal Muhammad, BobD 230 [place] [address] 06/04/2025 11:00 AM EST Clinical Support [facility] 505 [place] [address] Katherine Caspre, RN 505 [place] [address] documented as of this encounter Visit Diagnoses Diagnosis Status post surgical removal of nail matrix of toe of left foot documented in this encounter Additional Health Concerns Assessment Noted Time PHQ-9 Depression Total Score: 7 09/15/19 25 9:02 AM EDT documented as of this encounter Care Teams Veterans Employment Representative Relationship Specialty Start Date End Date Joyce Tapia MD [address] [place] [address] PCP - General Family Medicine 06/19/12 documented as of this encounter
--- OUTSIDE RECORDS SUMMARY | 2025-03-01 10:48 | XMS_ITS | Encounter Summary ---
Author Organization [employer] Address [address] [facility] 7t [place] [address] Care Team Providers Care Radio Board Operator Announcer Name Role Phone Joyce Tapia MD Primary Care Provider [phone] Reason for Visit * Reason Onset Date Comments Med Refill 07/12/2024 Encounter Details Date Type Department Care Team (Late st Contact Info) Description 07/12/2024 Refill [facility] MED & PEDS 505 [place], [place] [phone] Joyce Tapia MD 505 [place] [address] Status post surgical removal of nail matrix [...] [facility] [address] [place] [address] Joyce Tapia MD 505 [place] [address] 03/19/2025 10:30 AM EDT Office Visit [facility] MED [facility] PEDS [address] [place] [address] Ayden Orellana MD 505 [place] [address] 04/03/2025 10:00 AM EDT Medication Management [facility] MED [facility] PEDS [address] [place] [address] Cristal Muhammad PharmD 230 [place] [address] 06/04/2025 11:00 AM EST Clinical Support [facility] [address] [place] [address] Katherine Casper, MAKEDA 505 [place] [address] documented as of this encounter Visit Diagnoses Diagnosis Status post surgical removal of nail matrix of toe of left foot documented in this encounter Care Teams Radio Board Operator Announcer Relationship Specialty Start Date End Date Joyce Tapia MD [address] [place] [address] PCP - General Family Medicine 06/19/12 documented as of this encounter
--- OUTSIDE RECORDS SUMMARY | 2025-03-01 10:48 | XMS_ITS ---
Author Organization [employer] Address [address] [place] [address] 7t [place] [address] Care Team Providers Care Banking Teacher Name Role Phone Joyce Tapia MD Primary Care Provider [phone] [employer] P[employer]HER Status:Enrolled (Active) Start date:10/22/2022 Enrollment date:10/22/2022 Case Team Name Relationship Phone Katherine Casper RN(Responsible Staff) Registered Nurse Continued Care and Services Coordination
--- OUTSIDE RECORDS SUMMARY | 2025-03-01 10:48 | XMS_ITS | Encounter Summary ---
Author Organization [employer] Address [address] [facility] 7t [place] [address] Care Team Providers Care Sweatband Drummer Name Role Phone Joyce Tapia MD Primary Care Provider [phone] Reason for Visit * Reason Onset Date Comments Med Refill 05/28/2024 Encounter Details Date Type Department Care Team ([facility] st Contact Info) Description 05/28/2024 Refill [facility] MED & PEDS [address] [place], [place] [phone] Joyce Tapia MD 505 [place] [address] Status post surgical removal of nail matrix [...] 03/11/2025 11:30 AM EDT Telemedicine [facility] MED & PEDS [address] [place] [address] Joyce Tapia MD 505 [place] [address] 03/19/2025 10:30 AM EDT Office Visit [facility] [address] [place] [address] Ayden Orellana MD 505 [place] [address] 04/03/2025 10:00 AM EDT Medication Management [facility] [address] [place] [address] Cristal Muhammad PharmD 230 [place] [address] 06/04/2025 11:00 AM EST Clinical Support [facility] [address] [place] [address] Katherine Casper, MAKEDA 505 [place] [address] documented as of this encounter Visit Diagnoses Diagnosis Status post surgical removal of nail matrix of toe of left foot documented in this encounter Care Teams Sweatband Drummer Relationship Specialty Start Date End Date Joyce Tapia MD 230 [place] [address] PCP - General Family Medicine 06/19/12 documented as of this encounter
--- OUTSIDE RECORDS SUMMARY | 2025-03-01 10:48 | XMS_ITS | Encounter Summary ---
Author Organization [employer] Address 75 [facility] 7t [place] [address] Care Team Providers Care Or Nurse Manager Name Role Phone Joyce Tapia MD Primary Care Provider [phone] Encounter Details Date Type Department Care Team (Latest Contact Info) Description 03/21/2019 Abstract [facility] CONVERSIONS Dental, Provider, DDS Social History Tobacco [...] Care Team ( st Contact Info) Description 03/11/2025 11:30 AM EDT Telemedicine [facility] MED & PEDS 505 [place] [address] Joyce Tapia MD 505 [place] [address] 03/19/2025 10:30 AM EDT Office Visit [facility] MED & PEDS 505 [place] [address] Ayden Orellana MD 505 [place] [address] 04/03/2025 10:00 AM EDT Medication Management [facility] MED & PEDS 505 [place] [address] Cristal Muhammad, Deonte 230 [place] [address] 06/04/2025 11:00 AM EST Clinical Support [facility] MED & PEDS 505 [place] [address] Katherine Casper, RN 505 [place] [address] documented as of this encounter Visit Diagnoses Not on filedocumented in this encounter Care Teams Or Nurse Manager Relationship Specialty Start Date End Date Joyce Tapia MD 230 [place] [address] PCP - General Family Medicine 06/19/12 documented as of this encounter
--- OUTSIDE RECORDS SUMMARY | 2025-03-01 10:48 | XMS_ITS | Encounter Summary ---
Author Organization [employer] Address 75 [facility] 7t [place] [address] Care Team Providers Care Corporate Driver Name Role Phone Joyce Tapia MD Primary Care Provider [phone] Reason for Visit * Reason Onset Date Comments Med Refill 04/25/2024 Encounter Details Date Type Department Care Team ([facility] st Contact Info) Description 04/25/2024 Telephone [facility] MEDICINE [address] [place] [address] Joyce Tapia MD [address] [place], [place] [phone] Med Refill Social History Tobacco Use Types Packs/Day Years Used Date Smoking Tobacco: Every Day Cigarettes Passive Smoke Exposure: Never Smokeless Tobacco: Never Alcohol Use Standard Drinks/Week Comments Never 0 (1 standard drink = 0.6 oz pur e alcohol) Housing Stability Answer Date Recorded What is your housing situation today? I have yadirashiv hna 01/04/[address] you [...] (Roxicodone) 5 MG To be sent to: [facility] documented in this encounter Plan of Treatment Upcoming Encounters Date Type Department Care Team (Late st Contact Info) Description 03/11/2025 11:30 AM EDT Telemedicine [facility] MED & PEDS 505 [place] [address] Joyce Tapia MD 505 [place] [address] 03/19/2025 10:30 AM EDT Office Visit [facility] MED & PEDS 505 [place] [address] Ayden Orellana MD 505 [place] [address] 04/03/2025 10:00 AM EDT Medication Management [facility] MED & PEDS 505 [place] [address] Cristal Muhammad, PharmD 230 [place] [address] 06/04/2025 11:00 AM EST Clinical Support [facility] MED & PEDS 505 [place] [address] Katherine Casper, MAKEDA [address] [place] [address] documented as of this encounter Visit Diagnoses Not on filedocumented in this encounter Care Teams Corporate Driver Relationship Specialty Start Date End Date Joyce Tapia MD [address] [place] [address] PCP - General Family Medicine 06/19/12 documented as of this encounter
--- OUTSIDE RECORDS SUMMARY | 2025-03-01 10:48 | XMS_ITS | Clinical Summary ---
Author Organization [employer] Address [address] [place] [address] Care Team Providers Care Credit Verification Clerk Name Role Phone Joyce Tapia MD Primary Care Provider [phone] Allergies Active Allergy Reactions Criticality Noted Date [...] and swelling). 30 g 2 024 Active sucralfate (Carafate) 1 g tablet Take 1 tablet (1 g) by mouth before breakfast, before lunch, before evening meal, and at bedtime. 120 tablet 11 025 2025 Active pantoprazole (ProtoNix) 40 MG EC tablet Take 1 tablet by mouth 2 times daily. 025 Active Blood Glucose Monitoring Suppl (AYLIENStyle [place] Lite) w/Device kit Test blood sugar as [...] po BID 60 tablet 3 025 Active Lancets 33G miscIndications :Type 2 diabetes mellitus without complication, without long-term current use of insulin (CMS/HCC) USE TO TEST BLOOD SUGAR THREE TIMES A DAY 100 each 3 025 Active glucose blood (FREESTYLE LITE) test stripIndication s:Type 2 diabetes mellitus without complication, without long-term current use of insulin ([facility]) USE TO TEST BLOOD SUGAR [...] TABLET EVERY MORNING 90 tablet 1 Active pramipexole (Mirapex) 0.5 MG tablet TAKE ONE TABLET THREE TIMES DAILY IN THE MORNING, EVENING AND BEDTIME 90 tablet 11 Active furosemide (Lasix) 20 MG tablet Take 0.5 tablets (10 mg) by mouth Once per day. 15 tablet 11 025 2025 Active empagliflozin (Jardiance) 25 MGIndications:T ype 2 diabetes mellitus without complication, without long-term current use of insulin ([facility]) Take 1 tablet (25 mg) by mouth Once per day. 30 tablet 5 Active lidocaine (Lidoderm) 5 % patchIndication s:Pain APPLY 1 PATCH TOPICALLY EVER DAY. REMOVE AND DISCARD PATCH WITHIN 12 HOURS OR DIRECTED BY MD. 30 patch Active Continuous Glucose Sensor (FreeStyle Gwendolyn 3 Plus Sensor) mis 1 each every 15 days. 2 each Active clotrimazole (Lotrimin) 1 % vaginal creamIndication s:Vulvovaginal Candidiasis Insert one applicator per vagina at bedtime for 7 nights 45 g 025 Active gabapentin (Neurontin) 100 MG capsule TAKE 1 CAPSULE BY MOUTH TWICE A DAY 60 capsule 025 Active tiZANidine (Zanaflex) 4 MG tabletIndicatio ns:Muscle spasm TAKE ONE TABLET EVERY EVENING 30 tablet 3 025 Active naloxone (Narcan) 4 mg/0.1 mL nasal spray Administer 1 spray (4 mg) into affected nostril(s) if needed for opioid reversal. May repeat every 2-3 minutes if needed, alternating nostrils, until medical assistance becomes available. 2 each 2 025 2025 Active zolpidem (Ambien) 5 MG tablet TAKE ONE TABLET EVERY NIGHT AT BEDTIME NEEDED FOR SLEEP 30 tablet Active oxyCODONE (Roxicodone) 5 MG immediate release tabletIndicatio ns:Status post surgical removal of nail matrix of toe of left foot Take 1 tablet (5 mg) by mouth every 6 (six) hours if needed for severe pain. 30 tablet Active tiZANidine (Zanaflex) 4 MG tabletIndicatio ns:Muscle spasm TAKE ONE TABLET EVERY EVENING 30 tablet 3 025 2024 Discontinued gabapentin (Neurontin) 100 MG capsule TAKE 1 CAPSULE BY MOUTH TWICE A DAY 60 capsule 025 2024 Discontinued zolpidem (Ambien) 5 MG tablet [...] Active Problems Problem Noted Date Diagnosed Date Dizziness 12/25/2024 Bilateral lower extremity edema 12/25/2024 Assessment & Plan (12/25/2024 9:14 PM EDT): Pt with significant LE edema , per pt worsen for the past week and particularly in last day, there is associated bl rash that does not seem cellulitis from exam, LE swelling could be cardiac, vascular as venous insuff vs Freeman cyst but needs to r/o DVT w significant hx of recurrent LE clot hx not on AC? as well eval for ongoing dizziness VS wnl w normal Ox2 ,HR,BP,afebrile -referred to ED today needs to have evaluation of ongoing dizziness,has crackles on lungs ,also needs to make sure not clots in legs w relevant PMX of DVT per pt ---offered to call EMS but pt states can go to ED- I called ED [facility] and informed of pt arrival -I am also referring for non urgent BL LE venous insufficiency US to make sure there is no reflux , if abn will refer pt to vascular but pt understands needs to go now to have DVT r/o w Doppler US at ED -advised to f w PCP for ongoing symptoms Fibromyalgia 12/24/2024 Long-term current use of opiate analgesic 2024 Overview (12/24/2024): Medication: oxycodone 5mg Q6h PRN Indication: fibromyalgia, neuropathic pain right hand Last PROFESSIONAL SERVICES MANAGER Agreement: 11/14/24 Tier: 3 (PROFESSIONAL SERVICES MANAGER visits Q4-6 months) GERD (gastroesophageal reflux disease) S/P gastric bypass [...] community supports PLAN: 1. Follow up with [facility]: Not recommended for follow-up 2. Behavioral Recommendations brianna Adler will reach out to [facility] and/or [facility] if further supports needed Status post surgical [...] Encounters Date Type Department Care Team Description 02/26/2025 Telephone [facility] [address] [place] [address] Myra Connors MD Referral-OBGYN 02/25/2025 Refill [facility] [address] [place] [address] Ayden Orellana MD Status post surgical removal of nail matrix of toe of left foot 02/23/2025 Refill [facility] [address] [place] [address] Ayden Orellana MD Status post surgical removal of nail matrix of toe of left foot 02/22/2025 Refill [facility] [address] [place] [address] Joyce Tapia MD 02/22/2025 Travel 02/19/2025 1:00 PM EDT Clinical Support [facility] [address] [place] [address] Katherine Casper, care tech bilateral low back pain with left-sided sciatica 02/19/2025 Refill [facility] [address] [place] [address] Katherine Casper RN 02/19/2025 Travel 02/17/2025 Refill [facility] [address] [place] [address] Emerson Keith MD Status post surgical removal of nail matrix of toe of left foot 02/11/2025 Refill [facility] [address] [place] [address] Joyce Tapia MD Muscle spasm 02/10/2025 Refill [facility] [address] [place] [address] Jenny Schmidt MD Status post surgical removal of nail matrix of toe of left foot 02/10/2025 Refill [facility] [address] [place] [address] Myra Connors MD Candidiasis 02/05/2025 Refill [facility] [address] [place] [address] Joyce Tapia MD 02/04/[address] [address] Nelli Mancuso MD nurse status check 02/04/2025 Telephone [facility] [address] [place] [address] Joyce Tapia MD Med Refill 02/03/2025 Refill [facility] [address] [place] [address] Joyce Tapia MD Status post surgical removal of nail matrix of toe of left foot 02/02/2025 12:00 PM EDT Office Visit [facility] [address] [address] Nelli Mancuso MD Swelling of finger of right hand (Primary Dx); Dietary counseling; Exercise counseling; Overweight 02/02/2025 Travel 01/31/2025 Orders Only GENERIC EXTERNAL DATA DEPARTMENT Provider, Generic External Data 01/27/2025 Refill [facility] [address] [place] [address] Joyce Tapia MD Status post surgical removal of nail matrix of toe of left foot 01/26/2025 9:40 AM EDT Office Visit [facility] [address] [place] [address] Myra Connors MD Vulvar lesion (Primary Dx); Candidiasis; Vulvar irritation 01/26/2025 Orders Only [facility] [address] [place] [address] Myra Connors MD 01/26/2025 Travel 01/25/2025 Refill [facility] [address] [place] [address] Joyce Tapia MD Pain 01/25/2025 Travel 01/24/2025 Telephone [facility] [address] [place] [address] Katherine Casper RN 01/24/2025 Travel 01/24/2025 Telephone [facility] [address] [place] [address] Joyce Tapia MD Appointment Request 01/23/2025 Results Follow-Up [facility] [address] [place] [address] Amber Valencia MD Vascular US lower extremity venous insufficiency bilateral 01/22/2025 Population Health Risk Score [facility] () Department [address] [place] [phone] Provider, Population Health Generic 01/21/2025 Telephone [facility] [address] [place] [address] Joyce Tapia MD 01/20/2025 Refill [facility] [address] [place] [address] Emerson Keith MD Status post surgical removal of nail matrix of toe of left foot 01/20/2025 Refill [facility] [address] [place] [address] Joyce Tapia MD 01/17/2025 Refill [facility] [address] [place] [address] Cristal Muhammad PharmD 01/15/2025 Telephone [facility] [address] [place] [address] Katherine Casper RN 01/13/2025 Refill [facility] [address] [place] [address] Joyce Tapia MD Status post surgical removal of nail matrix of toe of left foot 01/06/2025 Refill [facility] [address] [place] [address] Joyce Tapia MD Status post surgical removal of nail matrix of toe of left foot 01/01/2025 Refill [facility] [address] [place] [address] Joyce Tapia MD 12/30/2024 Refill [facility] [address] [place] [address] Joyce Tapia MD Status post surgical removal of nail matrix of toe of left foot 12/26/2024 3:00 PM EDT Telemedicine [facility] [address] [place] [address] Myra Henning, MAKEDA Synovial cyst of popliteal space, unspecified laterality 12/26/2024 Orders Only [facility] [address] [place] [address] Amber Valencia MD Freeman cyst, left (Primary Dx) 12/26/2024 Travel 12/25/2024 9:20 AM EDT Office Visit [facility] [address] [place] [address] Amber Valencia MD Lower extremity edema (Primary Dx); Dizziness; Bilateral lower extremity edema 12/25/2024 Orders Only GENERIC EXTERNAL DATA DEPARTMENT Provider, Generic External Data 12/25/2024 Travel 12/24/2024 Travel 12/23/2024 Refill [facility] [address] [place] [address] Emerson Keith MD Status post surgical removal of nail matrix of toe of left foot 12/23/2024 Refill [facility] [address] [place] [address] Joyce Tapia MD 12/19/2024 Refill [facility] [address] [place] [address] Joyce Tapia MD Type 2 diabetes mellitus without complication, without long-term current use of insulin ([facility]) 12/17/2024 Refill [facility] [address] [place] [address] Kassi Johnston FNP 12/16/2024 Refill [facility] [address] [place] [address] Joyce Tapia MD Status post surgical removal of nail matrix of toe of left foot 12/11/2024 Telephone [facility] [address] [place] [address] Katherine Casper RN 12/11/2024 Telephone [facility] [address] [place] [address] Joyce Tapia MD Medication Question 12/09/2024 Refill [facility] [address] [place] [address] Joyce Tapia MD Status post surgical removal of nail matrix of toe of left foot 12/05/2024 8:45 AM EDT Office Visit [facility] [address] [place] [address] Joyce Tapia MD Neuropathy (Primary Dx); Type 2 diabetes mellitus without complication, without long-term current use of insulin ([facility]); Fibromyalgia; Edema, unspecified type 12/05/2024 Travel 12/03/2024 Refill [facility] [address] [place] [address] Katherine Casper, MAKEDA Status post surgical removal of nail matrix of toe of left foot 12/03/2024 Telephone [facility] [address] [place] [address] Joyce Tapia MD Med Refill 12/02/2024 Refill [facility] [address] [place] [address] Joyce Tapia MD Status post surgical removal of nail matrix of toe of left foot 11/30/2024 Orders Only GENERIC EXTERNAL DATA DEPARTMENT Provider, Generic External Data from Last 3 Months Immunizations Immunization Administration Dates Next Due Influenza injectable quadriv alent IIV4 with preservative 05/01/2019,04/28/2018,04/19/2016,03/28 Influenza injectable quadriv alent preservative free 03/22/2023,04/05/2022,04/02/2020,07/01 Influenza, IIV3, injectable 03/28/2014 Influenza, Split (incl. corrine fied surface antigen) 04/10/2012 Influenza, seasonal, injecta ble, preservative free 06/04/2024 Moderna Covid-19 Vaccine 12+ 10/16/2020,09/19/19 21 Pfizer Covid-19 Vaccine 08/07/2024 Pneumococcal Conjugate PCV 20 08/07/2024 Pneumococcal [...] Sign Reading Time Taken Comments Blood Pressure 118/66 02/22/2025 10:45 AM EDT Pulse 74 02/22/2025 10:45 AM EDT Temperature 35.6 C (96.1 F) 02/02/2025 11:59 AM EDT Respiratory Rate 20 02/02/2025 11:59 AM EDT Oxygen Saturation 97% 12/25/2024 9:23 AM EDT Inhaled Oxygen Concentration - - Weight 71 kg (156 lb 9.6 oz) 02/02/2025 11:59 AM EDT Height 160 cm (5' 3 ) 02/02/2025 11:59 AM EDT Body Mass Index 27.74 02/02/2025 11:59 AM EDT Plan of Treatment Upcoming Encounters Date Type Department Care Team (Late st Contact Info) Description 03/11/2025 11:30 AM EDT Telemedicine [facility] [address] [place] [address] Joyce Tapia MD [address] [place] [address] 03/19/2025 10:30 AM EDT Office Visit [facility] [address] [place] [address] Ayden Orellana MD [address] [place] [address] 04/03/2025 10:00 AM EDT Medication Management [facility] [address] [place] [address] Cristal Muhammad, PharmD [address] [place] [address] 06/04/2025 11:00 AM EST Clinical Support [facility] [address] [place] [address] Katherine Casper, RN [address] [place] [address] Health Maintenance Due Date Last Done Comments CT Colonography 1960 FIT DNA/Cologuard 1960 FIT 1960 FOBT 1960 HIV Screening 1960 Sigmoidoscopy 1960 Eye Exam 1972 Hepatitis C Screening 1980 RSV Patients and Patients Aged 60 years or older (1 - Risk 60-74 years 1-dose series) 2022 Mammogram 05/28/2024 05/28/2023, 08/04, 08/16/2020, Additional history exists Colonoscopy 02/20/2025 02/20/2015 Colorectal Cancer Screening 02/20/2025 Influenza Vaccine (#1) 2025 , 03/22/2023, 04/05/2022, Additional history exists Diabetes: Hemoglobin A1C 04/27/2025 025, 10/31/2024, 07/09/2024, Additional history exists Diabetes: Foot Exam 07/09/2025 07/09/2024, 07/09/2024, 07/09/2024, Additional history exists SDOH Screening 08/30/2025 08/30/2024 Alcohol/Substance Use Screening 09/14/2025 09/14/2024 Depression Screening 09/14/2025 09/14/2024, 09/15/19 Diabetes: Urine Protein Screening 09/25/2025 09/25/2024, 08/20/2021 Lipid Panel 09/25/2025 09/25/2024, 07/09/2024 Disability Screening 12/24/2025 12/24/2024 Tobacco Screening 02/02/2026 02/02/2025 Cervical Cancer Screening 03/31/2026 HPV/Cotest 03/31/2026 03/31/2021 Pap Smear 03/31/2026 03/31/2021 DTaP/Tdap/Td Vaccines (3 - Td or Tdap) 03/16/2034 03/16/2024, 04/28/2018, 05/17/2001 Zoster Vaccines Completed 11/18/2022, 09/02/2022 COVID-19 Vaccine Completed 08/07/2024, 05/2021, 10/16/2020, Additional [...] Comments POCT GARETH-14 URINE DRUG SCREEN Routine 02/19/2025 1:10 PM EDT Chronic bilateral low back pain with left-sided sciatica GROSS AND MICROSCOPIC LEVEL 3 Routine 01/31/2025 8:40 AM EDT GLUCOSE, WHOLE BLOOD Routine 01/31/2025 6:45 AM EDT BACTERIAL VAGINOSIS PANEL Routine 01/26/2025 12:00 AM EDT CHLAMYDIA/N. GONORRHOEAE RNA, TMA, UROGENITAL Routine 01/26/2025 12:00 AM EDT Vulvar irritation POCT GLYCATED HEMOGLOBIN, TOTAL Routine 01/25/2025 4:11 PM EDT Type 2 diabetes mellitus without complication, without long-term current use of insulin ([facility]) [facility] US LOWER EXTREMITY VENOUS INSUFFICIENCY BILATERAL Routine 01/23/2025 10:40 AM EDT Lower extremity edema HIGH SENSITIVITY TROPONIN I Routine 12/25/2024 2:15 PM EDT US VENOUS DUPLEX LE LT Routine 12:10 PM EDT B TYPE NATRIURETIC PEPTIDE (BNP) Routine 12/25/2024 11:08 AM EDT APTT Routine 12/25/2024 11:08 AM EDT PROTHROMBIN TIME-INR Routine 12/25/2024 11:08 AM EDT CBC WITH AUTO DIFFERENTIAL Routine 12/25/2024 11:08 AM EDT BASIC METABOLIC PANEL Routine 12/25/2024 11:07 AM EDT POCT GLUCOSE Routine 12/05/2024 8:53 AM EDT Type 2 diabetes mellitus without complication, without long-term current use of insulin ([facility]) SARS COV2/INFLUENZA A/B AND RSV RNA QL NAAT Routine 11/30/2024 4:15 PM EDT [facility] US LOWER EXTREMITY VENOUS DUPLEX BILATERAL Routine 11/30/2024 2:45 PM EDT BLOOD CULTURE (SECOND) Routine 2:33 PM EDT B TYPE NATRIURETIC PEPTIDE (BNP) Routine 11/30/2024 2:14 PM EDT ETHANOL Routine 11/30/2024 2:14 PM EDT COMPREHENSIVE METABOLIC PANEL Routine 11/30/2024 2:14 PM EDT LACTIC ACID Routine 11/30/2024 2:14 PM EDT APTT Routine 11/30/2024 2:14 PM EDT PROTHROMBIN TIME-INR Routine 11/30/2024 2:14 PM EDT CBC WITH AUTO DIFFERENTIAL Routine 11/30/2024 2:14 PM EDT BLOOD CULTURE (FIRST) Routine 11/30/2024 2:14 PM EDT ALBUMIN, RANDOM URINE W/CREATININE Routine 09/25/2024 3:50 PM EDT LIPID PANEL, STANDARD Routine 09/25/2024 3:47 PM EDT BI MAMMOGRAM SCREENING TOMOSYNTHESIS BILATERAL Routine 05/28/2023 8:58 AM EST HPV MRNA E6/E7 Routine 03/31/2021 9:06 AM EDT THINPREP PAP Routine 03/31/2021 9:06 AM EDT HM COLONOSCOPY Routine 02/20/2015 from Last 3 Months or Most Recently Relevant to Health Maintenance Results * (ABNORMAL) POCT GARETH-14 Urine Drug Screen (02/19/2025 1:10 PM EDT) THC Negative Negative Cocaine Screen, Urine Negative Negative Opiate Screen, Urine Negative Negative Methamphetamine Screen Urine Negative Negative Amphetamine Screen, Urine Negative Negative Benzodiazepines Screen, Urine Negative Negative Barbiturate Screen, Urine Negative Negative Methadone Screen, Urine Negative Negative Buprenophine Screen, Urine Negative Negative TCA, Urine Negative Negative MDMA Urine Negative Negative ng/mL Oxycodone Screen, Urine Positive(A) Negative Phencyclidine (PCP), Urine Negative Negative Propoxyphene, Urine Negative Negative Fentanyl, Urine Negative Negative Urine Urine specimen obtained by clean catch procedure / Unknown 02/19/2025 1:10 PM EDT Narrative Katherine Casper, RN - 02/19/2025 1:10 PM EDT Internal Pass Control Lot# [id number] Exp: 05-03-26 Joyce Tapia MD POINT OF CARE TEST ENTER/EDIT OR DERABLES Final Result * Gross and Microscopic Level 3 (01/31/2025 8:40 AM EDT) 01/31/2025 8:40 AM EDT 01/31/2025 9:22 AM EDT Narrative [facility] - 02/01/2025 1:38 PM EDT ----- ------- Name: Urbano GroverNayely Age/Sex: 64/F : 1960 Unit#: [id number] Attend Dr: Jessy Bautista MD Re01/31/25 Status: [facility] Location: [facility] Disch: ----- ------- SPEC : [id number] RECD: 01/31/25 STATUS: LEXX CHANDLER NUM: [id number] JOSE: 01/31/[address] [facility] [address]: Jessy Bautista MD ENTERED: 01/31/25 SP TYPE: Surgical OTHR DR: Joyce Tapia MD ORDERED: Gross Micro L3 Diagnosis Soft tissue, right wrist, excision: Fibrovascular tissue with mild chronic inflammation and myxoid change, consistent with ganglion. Clinical History Trigger finger, ganglion right wrist Microscopic Description Microscopic sections reviewed. Material Received Right dorsal wrist ganglion Gross Description Received in formalin labeled right dorsal wrist ganglion is a 0.5 x 0.35 x 0.25 cm shaggy, rubbery irregular fragment of gee white-pink fibrous tissue, submitted in toto in a cassette labeled A. A cyst is not identified. CEDS IHC S/NG Disclaimer NOTE: Unless otherwise stated, all tissue is formalin-fixed and paraffin-embedded. Some or all of the immunohistochemical tests reported herein may have been developed and their performance characteristics determined by [facility]. They have not been cleared or approved by the U.S. Food and Drug Administration (FDA). However, the FDA has determined that such clearance or approval is not necessary. This laboratory is certified under the Clinical Laboratory Improvement Amendments of 1988 (CLIA) as qualified to perform high complexity clinical laboratory testing. Copies To: Joyce Tapia MD [address] [address] CONTINUED ON NEXT PAGE ----- ------- Name: Nayely Grover Age/Sex: 64/F : 1960 Unit#: [id number] Attend Dr: Jessy Bautista MD Re01/31/25 Status: [facility] Location: [facility] Disch: ----- ------- SPEC : [id number] RECD: 01/31/25 STATUS: LEXX CHANDLER NUM: [id number] JOSE: 01/31/[address] [facility] [address]: Jessy Bautista MD ENTERED: 01/31/25 SP TYPE: Surgical OTHR DR: Joyce Tapia MD ORDERED: Gross Micro L3 Copies To: (Continued) Jessy Bautista MD [facility] [address] [place] [address] [address] [place] [address] ----- ------- Signed (signature on file) Ayan Romero MD 02/01/25 1338 ----- ------- END OF REPORT Generic External Data Provider LAB CYTOLOGY FORTUNATO MAR Final Result [facility] [address] [place] [phone] [phone] * (ABNORMAL) Glucose, Whole Blood (01/31/2025 6:45 AM EDT) Glucose, Whole Blood 137(H) 60 - 115 mg/dL [facility] Comment:METER #: [id number] 01/31/2025 6:45 AM EDT 01/31/2025 6:49 AM EDT us Generic External Data Provider LAB BLOOD ORDERAB LES Final Result Performing Organization Address [facility] Co de Phone Number [facility] [address] [place] [phone] * (ABNORMAL) Bacterial Vaginosis (01/26/2025 12:00 AM EDT) TRICHOMONAS VAGINALIS DETECTION BY PCR NOT DETECTED Not Detect [facility] BACTERIAL VAGINOSIS DETECTION BY PCR NEGATIVE Negative [facility] Comment:The BV organism targ ets of the Xpert Xpress MVP test can becommensal in women; Xpert Xpress MVP positive results forbacterial vaginosis should be considered in conjunction withother clinical and patient information to determine thedisease status. Organisms that are not detected by the XpertXpress MVP test have also been reported to be associatedwith BV and aerobic vaginitis.The Xpert Xpress MVP test performance has not been evaluatedin patients under the age of 14. NADYA GROUP DETECTION BY PCR DETECTED(A) Not Detect [facility] Nadya glab krusei PCR NOT DETECTED Not Detect [facility] 01/26/2025 01/26/2025 1:5 5 PM EDT Myra Connors MD LAB MICROBIOLOGY - GENERAL ORDERABLES Final Result Performing Organization Address [facility] de Phone Number [facility] [address] [place] [phone] * Chlamydia/N. Gonorrhoeae RNA, TMA, Vagina (01/26/2025 12:00 AM EDT) Pathologist [facility] CT PCR NOT DETECTED Not Detect. [facility] Comment:A not detected test result does not exclude the possibilityof infection because test results can be affected byimproper specimen collection, concurrent antibiotic therapy,or the number of organisms in the specimen which may bebelow the sensitivity of the test. As with many diagnostictests, results from the Xpert CT/NG assay should beinterpreted in conjunction with other laboratory andclinical data available to the clinician.Xpert CT/NG performance has not been evaluated in patientsless than 14 years of age. The assay should not be used forthe evaluationof suspected sexual abuse or for other medico-legalindications. Additional testing is recommended in anycircumstance when false positive or false negative resultscould lead to adverse medical, social or psychologicalconsequences. NG PCR NOT DETECTED Not Detect. [facility] Comment:A not detected test result does not exclude the possibilityof infection because test results can be affected byimproper specimen collection, concurrent antibiotic therapy,or the number of organisms in the specimen which may bebelow the sensitivity of the test. As with many diagnostictests, results from the Xpert CT/NG assay should beinterpreted in conjunction with other laboratory andclinical data available to the clinician.Xpert CT/NG performance has not been evaluated in patientsless than 14 years of age. The assay should not be used forthe evaluationof suspected sexual abuse or for other medico-legalindications. Additional testing is recommended in anycircumstance when false positive or false negative resultscould lead to adverse medical, social or psychologicalconsequences. Swab Vaginal structure / Unknown 01/26/2025 01/26/2025 1:55 PM EDT Result [facility] Myra Connors MD LAB MICROBIOLOGY - GENERAL ORDERABLES Final Result [facility] [address] [place] [phone] * (ABNORMAL) POCT A1C (01/25/2025 4:11 PM EDT) Hemoglobin A1C 7.1(A) 4.0 - 5.7 % QC Media Lot # [id number] Lot# Expiration Date Blood 01/25/2025 4:11 PM EDT Joyce Tapia MD POINT OF CARE TEST ENTER/EDIT OR DERABLES Final Result * Vascular US lower extremity venous insufficiency bilateral (01/23/2025 10:40 AM EDT) 01/23/2025 10:4 0 AM EDT [facility] IMAGING - 01/23/2025 11:40 AM EDT [address] [address] Ultrasound Report Signed Patient: Nayely Grover MR#: [id number] 541 : 1960 Acct:[id number] Age/Sex: 64 / F ADM Date: 01/23/25 Loc: HO.US Attending Dr: Amber Landry MD Ordering Physician: Amber Valencia MD Date of Service: 01/23/25 Procedure(s): US venous insuf bilat Accession Number(s): [id number] cc: Joyce Tapia MD; Amber Valencia MD EXAMINATION: US LOWER EXTREMITY VENOUS (REFLUX EXAM), BILATERAL CLINICAL INFORMATION: Varices. Posttreatment changes, left greater saphenous vein. COMPARISON: August 10, 2023. TECHNIQUE: Color flow triplex imaging and compression Doppler was performed to evaluate both the deep and the superficial systems bilaterally. To evaluate the superficial system, the examination was performed in the upright position. Color-flow Doppler ultrasound and compression ultrasound were utilized. In addition, maneuvers were utilized to demonstrate reflux. FINDINGS: 1. DEEP VENOUS ULTRASOUND OF THE RIGHT LOWER EXTREMITY: Common Femoral Vein: Compressible, normal respiratory variation and augmented flow. Femoral Vein: Compressible, normal color flow and augmentation. Popliteal Vein: Compressible, normal augmentation. Deep Reflux: There is no evidence of reflux in the deep system in either the common femoral vein, superficial femoral or the popliteal vein. There is no evidence of a Freeman's cyst. 2. SUPERFICIAL ULTRASOUND WITH DOPPLER OF RIGHT LOWER EXTREMITY: GREAT SAPHENOUS VEIN: Saphenofemoral Junction: 0.6 cm; Reflux: 0 ms Proximal Thigh: 0.5 cm; Reflux: 0 ms Mid Thigh: 0.2 cm; Reflux: 0 ms Distal Thigh: 0.3 cm; Reflux: 0 ms At Knee: 0.2 cm; Reflux: 0 ms Proximal Calf: 0.2 cm; Reflux: 0 ms Mid Calf: 0.2 cm; Reflux: 0 ms Distal Calf: 0.2 cm; Reflux: 0 ms DUPLICATED MEDIAL GREAT SAPHENOUS VEIN: Diameter: 0.3 cm. Reflux: NA DUPLICATED LATERAL GREAT SAPHENOUS VEIN: Diameter: None imaged Reflux: NA SMALL SAPHENOUS VEIN: Saphenopopliteal Junction: 0.2 cm; Reflux: 0 ms Proximal: 0.2 cm; Reflux: 0 ms Distal: 0.2 cm; Reflux: 0 ms VEIN OF GIACOMINI: Size: NA Reflux: NA PERFORATORS: Location: Proximal to mid calf. Size: 0.3-0.2 cm. Reflux: NA VARICOSITIES: Location: None imaged. Size: NA Reflux: NA 3. DEEP VENOUS ULTRASOUND OF THE LEFT LOWER EXTREMITY: Common Femoral Vein: Compressible, normal respiratory variation and augmented flow. Femoral Vein: Compressible, normal color flow and augmentation. Popliteal Vein: Compressible, normal augmentation. Deep Reflux: There is no evidence of reflux in the deep system in either the common femoral vein, superficial femoral or the popliteal vein. There is no evidence of a Freeman's cyst. 4. SUPERFICIAL ULTRASOUND WITH DOPPLER OF LEFT LOWER EXTREMITY: GREAT SAPHENOUS VEIN: Saphenofemoral Junction: 0.6 cm; Reflux: 0 ms Proximal Thigh: 0.3 cm; Reflux: 0 ms Mid Thigh: Not seen. Distal Thigh: Not seen. At Knee: Not seen. Proximal Calf: Not seen. Mid Calf: Not seen. Distal Calf: Not seen. DUPLICATED MEDIAL GREAT SAPHENOUS VEIN: Diameter: None imaged Reflux: NA DUPLICATED LATERAL GREAT SAPHENOUS VEIN: Diameter: None imaged. Reflux: NA SMALL SAPHENOUS VEIN: Saphenopopliteal Junction: 0.2 cm; Reflux: 0 ms Proximal: 0.2 cm; Reflux: 0 ms Distal: 0.2 cm; Reflux: 0 ms VEIN OF GIACOMINI: Size: NA Reflux: NA PERFORATORS: Location: Distal thigh. Proximal calf and distal calf. Size: 0.2 cm. Reflux: NA VARICOSITIES: Location: None Imaged Size: NA Reflux: NA US/US venous insuf bilat IMPRESSION: Right: No venous insufficiency. Perforators without reflux, proximal to mid calf. Left: No venous insufficiency. Perforators without reflux, distal thigh and proximal and distal calf. Electronically signed by: Benjamin Fam MD 01/23/2025 11:37 AM EDT Dictated By: Benjamin Delgadillo MD Signed By: <Electronically signed by Benjamin Langley MD in OV> 01/23/25 1137 DD/ 1040 TD/TT: 01/23/25 1117 Braid Pattern Setter: Procedure Note Donotuseinterpreter, Image - 01/23/2025 [place] [address] Ultrasound Report Signed Patient: Nayely GroverMR#: [id number] 541 : 1960Acct:[id number] Age/Sex: 64 / FADM Date: 01/23/25 Loc: HO.US Attending Dr: Amber Landry MD Ordering Physician: Amber Valencia MD Date of Service: 01/23/25 Procedure(s): US venous insuf bilat Accession Number(s): [id number] cc: Joyce Tapia MD; Amber Valencia MD EXAMINATION: US LOWER EXTREMITY VENOUS (REFLUX EXAM), BILATERAL CLINICAL INFORMATION: Varices. Posttreatment changes, left greater saphenous vein. COMPARISON: August 10, 2023. TECHNIQUE: Color flow triplex imaging and compression Doppler was performed to evaluate both the deep and the superficial systems bilaterally. To evaluate the superficial system, the examination was performed in the upright position. Color-flow Doppler ultrasound and compression ultrasound were utilized. In addition, maneuvers were utilized to demonstrate reflux. FINDINGS: 1. DEEP VENOUS ULTRASOUND OF THE RIGHT LOWER EXTREMITY: Common Femoral Vein: Compressible, normal respiratory variation and augmented flow. Femoral Vein: Compressible, normal color flow and augmentation. Popliteal Vein: Compressible, normal augmentation. Deep Reflux: There is no evidence of reflux in the deep system in either the common femoral vein, superficial femoral or the popliteal vein. There is no evidence of a Freeman's cyst. 2. SUPERFICIAL ULTRASOUND WITH DOPPLER OF RIGHT LOWER EXTREMITY: GREAT SAPHENOUS VEIN: Saphenofemoral Junction: 0.6 cm; Reflux: 0 ms Proximal Thigh: 0.5 cm; Reflux: 0 ms Mid Thigh: 0.2 cm; Reflux: 0 ms Distal Thigh: 0.3 cm; Reflux: 0 ms At Knee: 0.2 cm; Reflux: 0 ms Proximal Calf: 0.2 cm; Reflux: 0 ms Mid Calf: 0.2 cm; Reflux: 0 ms Distal Calf: 0.2 cm; Reflux: 0 ms DUPLICATED MEDIAL GREAT SAPHENOUS VEIN: Diameter: 0.3 cm. Reflux: NA DUPLICATED LATERAL GREAT SAPHENOUS VEIN: Diameter: None imaged Reflux: NA SMALL SAPHENOUS VEIN: Saphenopopliteal Junction: 0.2 cm; Reflux: 0 ms Proximal: 0.2 cm; Reflux: 0 ms Distal: 0.2 cm; Reflux: 0 ms VEIN OF GIACOMINI: Size: NA Reflux: NA PERFORATORS: Location: Proximal to mid calf. Size: 0.3-0.2 cm. Reflux: NA VARICOSITIES: Location: None imaged. Size: NA Reflux: NA 3. DEEP VENOUS ULTRASOUND OF THE LEFT LOWER EXTREMITY: Common Femoral Vein: Compressible, normal respiratory variation and augmented flow. Femoral Vein: Compressible, normal color flow and augmentation. Popliteal Vein: Compressible, normal augmentation. Deep Reflux: There is no evidence of reflux in the deep system in either the common femoral vein, superficial femoral or the popliteal vein. There is no evidence of a Freeman's cyst. 4. SUPERFICIAL ULTRASOUND WITH DOPPLER OF LEFT LOWER EXTREMITY: GREAT SAPHENOUS VEIN: Saphenofemoral Junction: 0.6 cm; Reflux: 0 ms Proximal Thigh: 0.3 cm; Reflux: 0 ms Mid Thigh: Not seen. Distal Thigh: Not seen. At Knee: Not seen. Proximal Calf: Not seen. Mid Calf: Not seen. Distal Calf: Not seen. DUPLICATED MEDIAL GREAT SAPHENOUS VEIN: Diameter: None imaged Reflux: NA DUPLICATED LATERAL GREAT SAPHENOUS VEIN: Diameter: None imaged. Reflux: NA SMALL SAPHENOUS VEIN: Saphenopopliteal Junction: 0.2 cm; Reflux: 0 ms Proximal: 0.2 cm; Reflux: 0 ms Distal: 0.2 cm; Reflux: 0 ms VEIN OF GIACOMINI: Size: NA Reflux: NA PERFORATORS: Location: Distal thigh. Proximal calf and distal calf. Size: 0.2 cm. Reflux: NA VARICOSITIES: Location: None Imaged Size: NA Reflux: NA US/US venous insuf bilat IMPRESSION: Right: No venous insufficiency. Perforators without reflux, proximal to mid calf. Left: No venous insufficiency. Perforators without reflux, distal thigh and proximal and distal calf. Electronically signed by: Benjamin Fam MD 01/23/2025 11:37 AM EDT RP Dictated By: Benjamin Delgadillo MD Signed By: <Electronically signed by Benjamin Langley MDin OV> 01/23/25 1137 DD/ 1040 TD/TT: 01/23/25 1117 Braid Pattern Setter: us Amber Landry MD CV VASCULAR PROCE DURES Final Result Performing Organization Address [facility] Co de Phone Number [facility] [address] [place] [phone] * High Sensitivity Troponin I (12/25/2024 2:15 PM EDT) TROPONIN I HIGH SENSITIVITY <2.7 <3.5 - 17.0 ng/L [facility] Comment:The [place] high sens itivity Troponin-I results should beused in conjunction with other diagnostic information suchas ECG, clinical observations and information, and patientsymptoms to aid in the diagnosis of ND. 12/25/2024 2:15 PM EDT 12/25/2024 2:17 PM EDT us Generic External Data Provider LAB BLOOD ORDERAB LES Final Result Performing Organization Address [facility] Co de Phone Number [facility] [address] [place] [phone] * US VENOUS DUPLEX LE LT (12/25/2024 12:10 PM EDT) Anatomical Region Laterality Modality Abdomen Ultrasound 12/25/2024 12:1 0 PM EDT Narrative 12/25/2024 12:43 PM EDT [address] [address] Ultrasound Report Signed Patient: Nayely Grover MR#: [id number] 541 : 1960 Acct:[id number] Age/Sex: 64 / F ADM Date: 12/25/24 Loc: HO.ED Attending Dr: Ordering Physician: Iveth Valladares PA-C Date of Service: 12/25/24 Procedure(s): US venous duplex LE LT Accession Number(s): [id number] cc: Joyce Tapia MD; Iveth Valladares PA-C EXAMINATION: US LOWER EXTREMITY VEINS LIMITED FOLLOW UP LEFT HISTORY: leg pain and swelling rule out VTE COMPARISON: Comparison is made with the prior examination dated 11/30/2024. TECHNIQUE: Duplex and color Doppler sonographic examination of the deep venous system of the left lower extremity was performed. FINDINGS: The common femoral, superficial femoral, and popliteal veins are patent demonstrating normal compressibility, spontaneous flow, and augmentation. There is a normal color and spectral Doppler waveform appearance of the visualized deep venous system above the knee. The posterior tibial and peroneal veins are patent. Incidental note is made of a 1.2 x 0.6 x 0.9 cm fluid collection in the popliteal fossa, consistent with a Freeman's cyst. US/US venous duplex LE LT IMPRESSION: No evidence of acute DVT in the left lower extremity. Electronically signed by: Delfino Barone MD 12/25/2024 12:40 PM EDT Dictated By: Delfino Barone MD Signed By: <Electronically signed by Delfino Barone MD in OV> 12/25/24 1240 DD/ 1210 TD/TT: 12/25/24 1222 Braid Pattern Setter: Procedure Note Donotuseinterpreter, Image - 12/25/2024 [place] [address] Ultrasound Report Signed Patient: Nayely Grover#: [id number] 541 : 1960Acct:[id number] Age/Sex: 64 / FADM Date: 12/25/24 Loc: .ED Attending Dr: Ordering Physician: Iveth Valladares PA-C Date of Service: 12/25/24 Procedure(s): US venous duplex LE LT Accession Number(s): [id number] cc: Joyce Tapia MD; Iveth Valladares PA-C EXAMINATION: US LOWER EXTREMITY VEINS LIMITED FOLLOW UP LEFT HISTORY: leg pain and swelling rule out VTE COMPARISON: Comparison is made with the prior examination dated 11/30/2024. TECHNIQUE: Duplex and color Doppler sonographic examination of the deep venous system of the left lower extremity was performed. FINDINGS: The common femoral, superficial femoral, and popliteal veins are patent demonstrating normal compressibility, spontaneous flow, and augmentation. There is a normal color and spectral Doppler waveform appearance of the visualized deep venous system above the knee. The posterior tibial and peroneal veins are patent. Incidental note is made of a 1.2 x 0.6 x 0.9 cm fluid collection in the popliteal fossa, consistent with a Freeman's cyst. US/US venous duplex LE LT IMPRESSION: No evidence of acute DVT in the left lower extremity. Electronically signed by: Delfino Barone MD 12/25/2024 12:40 PM EDT RP Dictated By: Delfino Barone MD Signed By: <Electronically signed by Delfino Barone MD in OV> 12/25/24 1240 DD/ 1210 TD/TT: 12/25/24 1222 Braid Pattern Setter: us [facility] External Provider IMG US PROCEDURES Final Result * CBC auto differential (12/25/2024 11:08 AM EDT) Only the most recent of2 resultswithin the time period is included. White Blood Count 7.1 4.8 - 10.8 X10*3/uL [facility] Red Blood Count 4.42 4.20 - 5.50 X10*6/uL [facility] Hemoglobin 13.1 12.0 - 16.0 g/dl [facility] Hematocrit 39.4 37.0 - 47.0 % [facility] Mean Corpuscular Volume 89.1 80.0 - 98.0 fL [facility] Mean Corpuscular Hemoglobin 29.6 27.0 - 33.0 pg [facility] Mean Corpuscular HGB Conc 33.2 31.0 - 35.0 g/dl [facility] Red Cell Distribution Width 13.2 11.0 - 16.0 % [facility] Platelet Count 189 160 - 400 X10*3/uL [facility] Mean Platelet Volume 10.1 9.4 - 12.3 fL [facility] Neutrophils Percent Auto 65.1 45 - 73 % [facility] Imm Gran Pct Auto 0.3 0.0 - 0.4 % [facility] Lymphocytes Percent Auto 25.7 20 - 40 % [facility] Monocytes Percent Auto 5.2 2 - 11 % [facility] Eosinophils Percent Auto 3.3 0 - 4 % [facility] Basophils Percent Auto 0.4 0 - 2 % [facility] NRBC Pct Auto 0.0 0.0 - 0.2 /100WBC [facility] Neutrophils Absolute Auto 4.6 2.0 - 8.3 x10*3/uL [facility] Imm Gran Abs Auto 0.02 0.00 - 0.03 X10*3/uL [facility] Lymphocytes Absolute Auto 1.8 1.2 - 4.9 X10*3/uL [facility] Monocytes Absolute Auto 0.4 0.1 - 1.2 X10*3/uL [facility] Eosinophils Absolute Auto 0.2 0.0 - 0.4 X10*3/uL [facility] Basophils Absolute Auto 0.0 0.0 - 0.2 X10*3/uL [facility] NRBC Abs Auto 0.000 0.0 - 0.012 X10*3/uL [facility] 12/25/2024 11:0 8 AM EDT 12/25/2024 11:19 AM EDT us Generic External Data Provider LAB BLOOD ORDERAB LES Final Result [facility] [address] [place] [phone] * Partial Thromboplastin Time, Activated (APTT) (12/25/2024 11:08 AM EDT) Only the most recent of2 resultswithin the time period is included. Partial Thromboplastin Time 31.0 26.0 - 36.8 SEC [facility] Comment:For information rega rding the monitoring of direct thrombininhibitors, please refer to Pharmacy. 12/25/2024 11:0 8 AM EDT 12/25/2024 11:19 AM EDT Generic External Data Provider LAB BLOOD ORDERAB LES Final Result Performing Organization Address [facility]/ZIP Co de Phone Number [facility] [address] [place] [phone] * Prothrombin Time-INR (12/25/2024 11:08 AM EDT) Only the most recent of2 resultswithin the time period is included. Prothrombin Time 11.0 10.9 - 12.4 SEC [facility] INTERNATIONAL NORM RATIO 1.0 0.9 - 1.1 [facility] Comment:INTERNATIONAL NORMAL IZED RATIO (INR) REFERENCE RANGES Reference RangeFor patients not on anticoagulant therapy: 0.9 - 1.1INR ranges for oral anticoagulanttherapy:For prevention and treatment of venous thrombosis and pulmonary embolism: 2.0 - 3.0For acute myocardial infarction with aspirin therapy: 2.0 - 3.0For acute myocardial infarction without aspirin therapy: 3.0 - 4.0For patients with mechanical prosthetic heart valves: 2.5 - 3.5 12/25/2024 11:0 8 AM EDT 12/25/2024 11:19 AM EDT Generic External Data Provider LAB BLOOD ORDERAB LES Final Result Performing Organization Address City/[facility]/ZIP Co de Phone Number [facility] [address] [place] [phone] * B Type Natriuretic Peptide (BNP) (12/25/2024 11:08 AM EDT) Only the most recent of2 resultswithin the time period is included. B Type Natriuretic Peptide 20 <100 pg/mL [facility] 12/25/2024 11:0 8 AM EDT 12/25/2024 11:19 AM EDT us Generic External Data Provider LAB BLOOD ORDERAB LES Final Result [facility] [address] [place] [phone] * (ABNORMAL) Basic Metabolic Panel (12/25/2024 11:07 AM EDT) Sodium 141 135 - 145 mmol/L [facility] Potassium 4.0 3.3 - 5.1 mmol/L [facility] Chloride 108 96 - 108 mmol/L [facility] Carbon Dioxide 28 22 - 29 mmol/L [facility] Anion Gap 9(L) 12 - 20 [facility] Urea Nitrogen (BUN) 15 9 - 16 mg/dL [facility] Creatinine, Serum 0.69 0.5 - 1.4 mg/dL [facility] Creatinine Clr Calc Pharmacy 79.9 [facility] Comment:Provided height and weight: 160.02 cm,71.1 kg.eGFR (calculated from the MDRD study equation) and eCrCl(calculated from the Cockcroft-Gault equation) are based ondifferent parameters and may not yield comparable results.If eCrCl result is absurd, please check patient'sheight/weight. Estimated Glomerular Filt Rate >60 [facility] Comment:Chronic Kidney Disea se: Estimated GFR < 60 mL/min/1.29c8Cbxpge Kidney Disease: Estimated GFR < 15 mL/min/1.73m2 Glucose 141(H) 60 - 115 mg/dL [facility] Calcium 8.8 8.4 - 10.2 mg/dL [facility] 12/25/2024 11:0 7 AM EDT 12/25/2024 11:19 AM EDT us Generic External Data Provider LAB BLOOD ORDERAB LES Final Result [facility] [address] [place] [phone] * (ABNORMAL) POCT glucose manually resulted (12/05/2024 8:53 AM EDT) Glucose Blood, POC 293(A) 60 - 200 mg/dL QC Media Lot # Comment:[id number] Lot# Expiration Date Comment:03/17/2025 Blood Capillary blood specimen / Unknown 12/05/2024 8:53 AM EDT Joyce Tapia MD POINT OF CARE TEST ENTER/EDIT OR DERABLES Final Result * SARS-CoV-2 RNA, Influenza A/B, and RSV RNA, Ql NAAT (11/30/2024 4:15 PM EDT) [facility] Influenza A PCR NEGATIVE Negative [facility] Influenza B PCR NEGATIVE Negative [facility] Resp Syncy Virus RNA Qual PCR NEGATIVE Negative [facility] SARS COV2 PCR NEGATIVE Negative [facility] Comment:All test results mus t [...] use by authorized laboratories.Testing performed on the [employer] GeneXpert utilizingreal-time RT-PCR.All SARS CoV2 and positive influenza A/B results arereported to [facility]. 11/30/2024 4:15 PM EDT 11/30/2024 4:15 PM EDT us Generic External Data Provider LAB MICROBIOLOGY - GENERAL ORDERABLES Final Result [facility] [address] [place] [phone] * [facility] US Lower Extremity Venous Duplex Bilateral (11/30/2024 2:45 PM EDT) 11/30/2024 2:45 PM EDT Narrative [facility] - 11/30/2024 3:31 PM EDT [address] [address] Ultrasound Report Signed Patient: Nayely Grover MR#: [id number] 541 : 1960 Acct:[id number] Age/Sex: 64 / F ADM Date: 11/30/24 Loc: .ED Attending Dr: Ordering Physician: David Juares Date of Service: 11/30/24 Procedure(s): US venous duplex LE BI Accession Number(s): [id number] cc: David Juares; Joyce Tapia MD EXAMINATION: US TRIPLEX LOWER EXTREMITY, BILATERAL CLINICAL INFORMATION: Bilateral lower extremity swelling. COMPARISON: None available. TECHNIQUE: Color-flow triplex imaging with spectral analysis and compression Doppler were performed on the bilateral lower extremities. FINDINGS: Respiratory variation, normal compression and augmented flow are noted throughout the bilateral lower extremities. The visualized common femoral vein, superficial femoral vein, profunda femoral vein, popliteal vein and midcalf peroneal and posterior tibial venous segments show no evidence of deep venous thrombosis bilaterally. There is no right Freeman's cyst. There is a small Freeman's cyst on the left measuring 1.5 x 1.1 x 1.3 cm. US/US venous duplex LE BI IMPRESSION: 1. No evidence of deep venous thrombosis involving the bilateral lower extremities. 2. Small left-sided Freeman's cyst. Electronically signed by: Bakari De Santiago MD 11/30/2024 03:28 PM EDT Dictated By: Bakari De Santiago MD Signed By: <Electronically signed by Bakari De Santiago MD in OV> 11/30/24 1528 DD/ 1445 TD/TT: 11/30/24 1515 Braid Pattern Setter: Procedure Note Donotuseinterpreter, Image - 11/30/[address] [address] Ultrasound Report Signed Patient: Nayely GroverMR#: [id number] 541 : 1960Acct:[id number] Age/Sex: 64 / FADM Date: 11/30/24 Loc: HO.ED Attending Dr: Ordering Physician: David Juares Date of Service: 11/30/24 Procedure(s): US venous duplex LE BI Accession Number(s): [id number] cc: David Juares; Jocye Tapia MD EXAMINATION: US TRIPLEX LOWER EXTREMITY, BILATERAL CLINICAL INFORMATION: Bilateral lower extremity swelling. COMPARISON: None available. TECHNIQUE: Color-flow triplex imaging with spectral analysis and compression Doppler were performed on the bilateral lower extremities. FINDINGS: Respiratory variation, normal compression and augmented flow are noted throughout the bilateral lower extremities. The visualized common femoral vein, superficial femoral vein, profunda femoral vein, popliteal vein and midcalf peroneal and posterior tibial venous segments show no evidence of deep venous thrombosis bilaterally. There is no right Freeman's cyst. There is a small Freeman's cyst on the left measuring 1.5 x 1.1 x 1.3 cm. US/US venous duplex LE BI IMPRESSION: 1. No evidence of deep venous thrombosis involving the bilateral lower extremities. 2. Small left-sided Freeman's cyst. Electronically signed by: Bakari De Santiago MD 11/30/2024 03:28 PM EDT Dictated By: Bakari De Santiago MD Signed By: <Electronically signed by Bakari De Santiago MD in OV> 11/30/24 1528 DD/ 1445 TD/TT: 11/30/24 151 Braid Pattern Setter: us [facility] External Provider CV VASC ULAR PROCEDURES Edited Result - Final [facility] [address] [place] [phone] * Blood Culture (Second) (11/30/2024 2:33 PM EDT) Blood Venous blood specimen / Unknown 11/30/2024 2:33 PM EDT 11/30/2024 2:36 PM EDT Comment:Blood Narrative [facility] - 12/05/2024 4:36 PM EDT Blood Culture (Second) No growth after 5 days. Specimen Source: Blood us Generic External Data Provider LAB MICROBIOLOGY - GENERAL ORDERABLES Final Result Performing Organization Address [facility]/ZIP Co de Phone Number [facility] [address] [place] [phone] * Blood Culture (First) (11/30/2024 2:14 PM EDT) Blood Venous blood specimen / Unknown 11/30/2024 2:14 PM EDT 11/30/2024 2:19 PM EDT Comment:Blood Narrative [facility] - 12/05/2024 4:19 PM EDT Blood Culture (First) No growth after 5 days. Specimen Source: Blood us Generic External Data Provider LAB MICROBIOLOGY - GENERAL ORDERABLES Final Result Performing Organization Address [facility] Co de Phone Number [facility] [address] [place] [phone] * Ethanol (11/30/2024 2:14 PM EDT) ETHANOL (MG/DL) IN SER/PLAS <10 mg/dL [facility] Comment:Serum/plasma ethanol results are to be used formedical/treatment purposes only. 11/30/2024 2:14 PM EDT 11/30/2024 2:19 PM EDT Generic External Data Provider LAB BLOOD ORDERAB LES Final Result Performing Organization Address [facility]/ZIP Co de Phone Number [facility] [address] [place] [phone] * Lactic Acid (11/30/2024 2:14 PM EDT) Lactic Acid 0.7 0.5 - 2.0 mmol/L [facility] 11/30/2024 2:14 PM EDT 11/30/2024 2:19 PM EDT us Generic External Data Provider LAB BLOOD ORDERAB LES Final Result [facility] [address] [place] [phone] [phone] * (ABNORMAL) Comprehensive Metabolic Panel (11/30/2024 2:14 PM EDT) Sodium 142 135 - 145 mmol/L [facility] Potassium 3.7 3.3 - 5.1 mmol/L [facility] Chloride 107 96 - 108 mmol/L [facility] Carbon Dioxide 30(H) 22 - 29 mmol/L [facility] Anion Gap 9(L) 12 - 20 [facility] Urea Nitrogen (BUN) 12 9 - 16 mg/dL [facility] Creatinine, Serum 0.74 0.5 - 1.4 mg/dL [facility] Creatinine Clr Calc Pharmacy 74.8 [facility] Comment:Provided height and weight: 160.02 cm,71.8 kg.eGFR (calculated from the MDRD study equation) and eCrCl(calculated from the Cockcroft-Gault equation) are based ondifferent parameters and may not yield comparable results.If eCrCl result is absurd, please check patient'sheight/weight. Estimated Glomerular Filt Rate >60 [facility] Comment:Chronic Kidney Disea se: Estimated GFR < 60 mL/min/1.83s8[place]okpoa Kidney Disease: Estimated GFR < 15 mL/min/1.73m2 Glucose 110 60 - 115 mg/dL [facility] Calcium 9.1 8.4 - 10.2 mg/dL [facility] Bilirubin, Total 0.3 0.0 - 1.0 mg/dL [facility] Aspartate Amino Transferase 27 5 - 31 U/L [facility] Alanine Aminotransferase 26 0 - 31 U/L [facility] Total Protein 6.2(L) 6.5 - 8.0 g/dL [facility] Albumin Level 3.9 3.5 - 5.0 g/dL [facility] Alkaline Phosphatase 79 39 - 117 U/L [facility] 11/30/2024 2:14 PM EDT 11/30/2024 2:19 PM EDT us Generic External Data Provider LAB BLOOD ORDERAB LES Final Result Performing Organization Address [facility]/ZIP Co de Phone Number [facility] [address] [place] [phone] * Albumin, Random Urine W/Creatinine (09/25/2024 3:50 PM EDT) Creatinine, Urine 83.95 mg/dL [facility] Microalbumin Urine <5.0 mg/L [facility] Microalbum Creatinine Ratio Ur TNP <30 ug/mg cr [facility] Comment:Unable to calculate albumin/creatinine ratio due to lowmicroalbumin or creatinine result. 09/25/2024 3:50 PM EDT 09/25/2024 5:55 PM EDT us Joyce Tapia MD LAB URINE ORDERABLES Final Resul t Performing Organization Address City/[facility]/ZIP Co de Phone Number [facility] [address] [place] [phone] * Lipid Panel, Standard (09/25/2024 3:47 PM EDT) Triglycerides 56 <150 mg/dL [facility] Comment:Desirable Triglyceri de: less than 150 mg/dLBorderline High Triglyceride 150-199 mg/dLHigh Triglyceride: 200-499 mg/dLVery High Triglyceride: greater than or equal to 5OO mg/dL Cholesterol 119 <200 mg/dL [facility] Comment:Desirable Cholestero l: less than 200 mg/dLBorderline High Cholesterol: 200-239 mg/dLHigh Cholesterol: greater than 239 mg/dL LDL Cholesterol Calculated 47 <100 mg/dL [facility] Comment:Desirable LDL: less than 100 mg/dLNear Optimal/Above Optimal LDL: 110- 129 mg/dLBorderline High LDL: 130-159 mg/dLHigh LDL: 160-189 mg/dLVery High LDL: greater than or equal to 190 mg/dL HDL Cholesterol 61 >40 mg/dL [facility] Comment:Desirable HDL: great er than 40 mg/dL Note: This HDL assay may give artificially low results in patients with liver disease. 09/25/2024 3:47 PM EDT 09/25/2024 6:08 PM EDT Joyce Tapia MD LAB BLOOD ORDERABLES Final Resul t Performing Organization Address City/State/[facility] Co de Phone Number [facility] [address] [place] [phone] * BI Mammogram Screening Tomosynthesis Bilateral (05/28/2023 8:58 AM EST) Anatomical Region Laterality Modality Breast Bilateral Mammography 05/28/2023 8:58 AM EST Narrative 06/03/2023 8:41 AM EST [address] [place] [address] Mammography Report Signed Patient: Nayely Grover MR#: [id number] : 1960 Acct:[id number] Age/Sex: 62 / F ADM Date: 05/28/23 Loc: HO.MAMMO Attending Dr: Joyce Tapia MD Ordering Physician: Joyce Tapia MD Results: 1Negati ve Date of Service: 05/28/23 Follow Up: 1 Year From Orig ina Mammogram Procedure(s): MM tomosynthesis screening BI Accession Number(s): [id number] cc: Joyce Tapia MD EXAMINATION: MM SCREENING [...] in OV> 06/03/23 0837 DD/ 0858 TD/TT: Braid Pattern Setter: Procedure Note Donotuseinterpreter, Image - 06/03/2023 [facility] [address] [place] [address] Mammography Report Signed Patient: Nayely GroverMR#: [id number] : 1960Acct:[id number] Age/Sex: 62 / FADM Date: 05/28/23 Loc: VISHNU Attending Dr: Joyce Tapia MD Ordering Physician: Joyce Tapia MDResults: 1Negati ve Date of Service: 05/28/23Follow Up: 1 Year From Orig ina Mammogram Procedure(s): MM tomosynthesis screening BI Accession Number(s): [id number] cc: Joyce Tapia MD EXAMINATION: MM SCREENING [...] Radha Colon MD in OV> 06/03/23836 DD/ 7 TD/TT: Braid Pattern Setter: us Joyce Tapia MD IMG BI PROCEDURES Final Result * THINPREP PAP (03/31/2021 9:06 AM EDT) Clinical Information: H/O HYST, H/O CERVICAL DYSPLASIA [facility] COMMENT [facility] Comment: EXPLANATORY NOTE: The Pap is a screening test for cervical cancer. It is not a diagnostic test and is subject to false negative and false positive results. It is most reliable when a satisfactory sample, regularly obtained, is submitted with relevant clinical findings and history, and when the Pap result is evaluated along with historic and current clinical information. Director Of Photography : [facility] Comment: JXM, CT(ASCP) CT screening location: [place] [address] Interpretation/R esult: Negative for intraepithelial lesion or [...] provided 03/31/2021 9:06 AM EDT us Noa MARINOM LAB PATHOLOGY ORDERABLES Final Result Performing Organization Address [facility] Co de Phone Number [facility] [address] * HPV mRNA E6/E7 (03/31/2021 9:06 AM EDT) HPV nRNA E6/E7 Not Detected Not Detected [facility] Comment: Methodology: Production Pattern Maker-Mediated Amplification This assay detects E6/E7 viral messenger RNA (mRNA) from 14 high-risk HPV types (16,18,31,33,35,39,45,51,52,56,58,59,66,68). The analytical performance characteristics of this assay have been determined by [employer]. The modifications have not been cleared or approved by the FDA. This assay has been validated pursuant to the CLIA regulations and is used for clinical purposes. For additional information, please refer to http://education.THINK360/faq/VFE619c3 (This link if provided for information/ educational purposes only.) 03/31/2021 9:06 AM EDT Noa De Santiago [facility] LAB BLOOD ORDERABLES Patt l Result Performing Organization Address [facility] de Phone Number [facility] [address] [place] [address], * Hm Colonoscopy (02/20/2015) Colonoscopy Normal Normal Narrative Zohra Benavidez - 02/20/2015 Repeat in 10 year Historical Provider HEALTH MAINTENANCE Final Result from Last 3 Months or Most Recently Relevant to Health Maintenance Insurance [facility] C3 Care Teams Credit Verification Clerk Relationship Specialty Start Date End Date Joyce Tapia MD [address] [place] [phone] PCP - General Family Medicine 06/19/12
--- OUTSIDE RECORDS SUMMARY | 2025-03-01 10:48 | XMS_ITS | Encounter Summary ---
Author Organization [employer] Address 75 [facility] 7t [place] [address] Care Team Providers Care Bariatric Nurse Name Role Phone Joyce Tapia MD Primary Care Provider [phone] Reason for Visit * Reason Onset Date Comments Med Refill 07/13/2024 Encounter Details Date Type Department Care Team ([facility] st Contact Info) Description 07/13/[address] [facility]EDS [address] [place], [place] [phone] Joyce Tapia MD 505 [place] [address] Social History Tobacco Use Types Packs/Day Years [...] Info) Description 03/11/2025 11:30 AM EDT Telemedicine [facility] MED & PEDS [address] [place] [address] Joyce Tapia MD 505 [place] [address] 03/19/2025 10:30 AM EDT Office Visit [facility] MED [facility] [address] [place] [phone] Ayden Orellana MD 505 [place] [address] 04/03/2025 10:00 AM EDT Medication Management [facility] [address] [place] [address] Cristal Muhammad, PharmD [address] [place] [address] 06/04/2025 11:00 AM EST Clinical Support [facility] & PED[facility] [address] [place] [address] Katherine Casper, MAKEDA 505 [place] [address] documented as of this encounter Visit Diagnoses Not on filedocumented in this encounter Care Teams Bariatric Nurse Relationship Specialty Start Date End Date Joyce Tapia MD [address] [place] [address] PCP - General Family Medicine 06/19/12 documented as of this encounter
--- OUTSIDE RECORDS SUMMARY | 2025-03-01 10:48 | XMS_ITS | Encounter Summary ---
Author Organization [employer] Address [address] [place] [address] 7 [place] [address] Care Team Providers Care Cartoonist Special Effects Name Role Phone Joyce Tapia MD Primary Care Provider [phone] Encounter Details Date Type Department Care Team (Late Contact Info) Description 05/24/2023 Abstract [facility] MEDICINE [address] [place], [place] [phone] Zohra Benavidez Social History Tobacco Use Types [...] Info) Description 03/11/2025 11:30 AM EDT Telemedicine [facility] MED & PEDS [address] [place] [address] Joyce Tapia MD 505 [place] [address] 03/19/2025 10:30 AM EDT Office Visit [facility] MED & PEDS [address] [place] [address] Ayden Orellana MD 505 [place] [address] 04/03/2025 10:00 AM EDT Medication Management [facility] MED & PEDS [address] [place] [address] Cristal Muhammad PharmD 230 [place] [address] 06/04/2025 11:00 AM EST Clinical Support [facility] PED[facility] [address] [place] [address] Katherine Casper, RN [address] [place] [address] documented as of this encounter Procedures Procedure Name Priority Date/Time Associated Diagnosis Comments COLONOSCOPY Routine 02/20/2015 documented in this encounter Results * Colonoscopy (02/20/2015) Colonoscopy Normal Normal Narrative Zohra Benavidez - 02/20/2015 Repeat in 10 year us Historical Provider HEALTH MAINTENANCE Final Result documented in this encounter Visit Diagnoses Not on filedocumented in this encounter Care Teams Cartoonist Special Effects Relationship Specialty Start Date End Date Joyce Tapia MD [address] [place] [address] PCP - General Family Medicine 06/19/12 documented as of this encounter
--- OUTSIDE RECORDS SUMMARY | 2025-03-01 10:48 | XMS_ITS | Encounter Summary ---
Author Organization [employer] Address 75 [facility] [address] [place] [address] Care Team Providers Care Marriage Counselor Name Role Phone Joyce Tapia MD Primary Care Provider [phone] Reason for Visit * Reason Comments Med Refill Encounter Details Date Type Department Care Team (Late st Contact Info) Description 06/07/2023 Refill [facility] MED & PEDS [address] [place], [place] [phone] Ev Lewis ANP [address] [place] [address] Status post surgical removal of nail matrix [...] Info) Description 03/11/2025 11:30 AM EDT Telemedicine [facility] MED [facility]ED[facility] [address] [place], [place] [phone] Joyce Tapia MD 505 [place] [address] 03/19/2025 10:30 AM EDT Office Visit [facility] [address] [place] [address] Ayden Orellana MD 505 [place] [address] 04/03/2025 10:00 AM EDT Medication Management [facility] [address] [place] [address] Cristal Muhammad PharmD [address] [place] [address] 06/04/2025 11:00 AM EST Clinical Support [facility] [address] [place] [address] Katherine Casper RN 505 [place] [address] documented as of this encounter Visit Diagnoses Diagnosis Status post surgical removal of nail matrix of toe of left foot documented in this encounter Care Teams Marriage Counselor Relationship Specialty Start Date End Date Joyce Tapia MD [address] [place] [address] PCP - General Family Medicine 06/19/12 documented as of this encounter
--- OUTSIDE RECORDS SUMMARY | 2025-03-01 10:48 | XMS_ITS | Encounter Summary ---
Author Organization [employer] Address 75 [facility] [address] [place] [address] Care Team Providers Care Direct Chill Caster Name Role Phone Joyce Tapia MD Primary Care Provider [phone] Reason for Visit * Reason Onset Date Comments Med Refill 04/19/2023 Encounter Details Date Type Department Care Team (Late st Contact Info) Description 04/19/2023 Telephone [facility] MED & PEDS [address] [place] [address] Joyce Tapia MD 505 [place] [address] Med Refill Social History Tobacco Use Types [...] 03/11/2025 11:30 AM EDT Telemedicine [facility] MED & PEDS [address] [place] [address] Joyce Tapia MD 505 [place] [address] 03/19/2025 10:30 AM EDT Office Visit [facility] MED & PEDS [address] [place] [address] Ayden Orellana MD 505 [place] [address] 04/03/2025 10:00 AM EDT Medication Management [facility] MED & PEDS [address] [place] [address] Cristal Muhammad PharmD 230 [place] [address] 06/04/2025 11:00 AM EST Clinical Support [facility] MED & PEDS [address] [place] [address] Katherine Casper, RN 505 [place] [address] documented as of this encounter Visit Diagnoses Not on filedocumented in this encounter Care Teams Direct Chill Caster Relationship Specialty Start Date End Date Joyce Tapia MD 230 [place] [address] PCP - General Family Medicine 06/19/12 documented as of this encounter
--- OUTSIDE RECORDS SUMMARY | 2025-03-01 10:49 | XMS_ITS | Encounter Summary ---
Author Organization [employer] Address 75 [facility] 7t [place] [address] Care Team Providers Care Bioinformatics Computer Scientist Name Role Phone Joyce Tapia MD Primary Care Provider [phone] Reason for Visit * Reason Onset Date Comments Med Refill 09/17/2024 Encounter Details Date Type Department Care Team ([facility] st Contact Info) Description 09/17/2024 Refill [facility] MED & PEDS 505 [place], [place] [phone] Emerson Keith MD 505 [place] [address] Status post surgical removal of nail matrix [...] [facility] [address] [place] [address] Joyce Tapia MD 505 [place] [address] 03/19/2025 10:30 AM EDT Office Visit [facility] MED & PEDS 505 [place] [address] Ayden Orellana MD 505 [place] [address] 04/03/2025 10:00 AM EDT Medication Management [facility] MED & PEDS 505 [place] [address] Cristal Muhammad, BobD 230 [place] [address] 06/04/2025 11:00 AM EST Clinical Support [facility] MED & PEDS 505 [place] [address] Katherine Casper, RN 505 [place] [address] documented as of this encounter Visit Diagnoses Diagnosis Status post surgical removal of nail matrix of toe of left foot documented in this encounter Additional Health Concerns Assessment Noted Time PHQ-9 Depression Total Score: 7 09/15/19 25 9:02 AM EDT documented as of this encounter Care Teams Bioinformatics Computer Scientist Relationship Specialty Start Date End Date Joyce Tapia MD [address] [place] [address] PCP - General Family Medicine 06/19/12 documented as of this encounter
--- OUTSIDE RECORDS SUMMARY | 2025-03-01 10:49 | XMS_ITS | Encounter Summary ---
Author Organization [employer] Address 75 [facility] 7t [place] [address] Care Team Providers Care Balance Wheel Screw Hole Driller Name Role Phone Joyce Tapia MD Primary Care Provider [phone] Encounter Details Date Type Department Care Team (Late Contact Info) Description 09/27/2022 Orders Only [facility] MEDICINE 230 [place], [place] [phone] Comfort Estrada LPN Social History Tobacco Use [...] Info) Description 03/11/2025 11:30 AM EDT Telemedicine [facility] CH[facility] MED & PEDS 505 [place], [place] [phone] Joyce Tapia MD 505 [place] [address] 03/19/2025 10:30 AM EDT Office Visit [facility] MED & PEDS 505 [place] [address] Ayden Orellana MD 505 [place] [address] 04/03/2025 10:00 AM EDT Medication Management [facility] MED & PEDS 505 [place] [address] Cristal Muhammad PharmD 230 [place] [address] 06/04/2025 11:00 AM EST Clinical Support [facility] MED & PEDS 505 [place] [address] Katherine Casper, MAKEDA 505 [place] [address] documented as of this encounter Visit Diagnoses Not on filedocumented in this encounter Care Teams Balance Wheel Screw Hole Driller Relationship Specialty Start Date End Date Joyce Tapia MD [address] [place] [address] PCP - General Family Medicine 06/19/12 documented as of this encounter
--- OUTSIDE RECORDS SUMMARY | 2025-03-01 10:49 | XMS_ITS | Encounter Summary ---
Author Organization [employer] Address 75 [facility] [address] [address] Care Team Providers Care Orthopedic Surgeon Name Role Phone Joyce Tapia MD Primary Care Provider [phone] Reason for Visit * Reason Onset Date Comments Med Refill 05/30/2023 Encounter Details Date Type Department Care Team ([facility] st Contact Info) Description 05/30/2023 Telephone [facility] 230 [place], [place] [phone] Joyce Tapia MD [address] [place] [address] Med Refill Social History Tobacco Use Types [...] oxyCODONE (Roxicodone) 5 MG immediate release tablet [facility] - [place], [place] - [address] documented in this encounter Plan of Treatment Upcoming Encounters Date Type Department Care Team (Late st Contact Info) Description 03/11/2025 11:30 AM EDT Telemedicine [facility] MED & PEDS [address] [place] [address] Joyce Tapia MD 505 [place] [address] 03/19/2025 10:30 AM EDT Office Visit [facility] MED & PEDS [address] [place] [address] Ayden Orellana MD 505 [place] [address] 04/03/2025 10:00 AM EDT Medication Management [facility] MED & PEDS [address] [place] [address] Cristal Muhammad PharmD 230 [place] [address] 06/04/2025 11:00 AM EST Clinical Support [facility] MED & PEDS 505 [place] [address] Katherine Casper, MAKEDA 505 [place] [address] documented as of this encounter Visit Diagnoses Not on filedocumented in this encounter Care Teams Orthopedic Surgeon Relationship Specialty Start Date End Date Joyce Tapia MD 230 [place] [address] PCP - General Family Medicine 06/19/12 documented as of this encounter
--- OUTSIDE RECORDS SUMMARY | 2025-03-01 10:49 | XMS_ITS | Encounter Summary ---
Author Organization [employer] Address 75 [facility] 7t [place] [address] Care Team Providers Care Sweatband Perforator Name Role Phone Joyce Tapia MD Primary Care Provider [phone] Reason for Visit * Reason Onset Date Comments Med Refill 02/10/2025 Encounter Details Date Type Department Care Team (Late st Contact Info) Description 02/10/2025 Refill [facility] [address] [place] [phone] Myra Connors MD 230 [place] [address] Candidiasis Social History Tobacco Use Types Packs/Day Years [...] Info) Description 03/11/2025 11:30 AM EDT Telemedicine [facility] MED & PEDS [address] [place] [address] Joyce Tapia MD 505 [place] [address] 03/19/2025 10:30 AM EDT Office Visit [facility] MED & PEDS [address] [place] [address] Ayden Orellana MD 505 [place] [address] 04/03/2025 10:00 AM EDT Medication Management [facility] MED & PEDS [address] [place] [address] Cristal Muhammad, PharmD 230 [place] [address] 06/04/2025 11:00 AM EST Clinical Support [facility] MED & PEDS [address] [place] [address] Katherine Casper, MAKEDA 505 [place] [address] documented as of this encounter Visit Diagnoses Diagnosis Candidiasis documented in this encounter Additional Health Concerns Assessment Noted Time PHQ-9 Depression Total Score: 7 09/15/19 25 9:02 AM EDT documented as of this encounter Care Teams Sweatband Perforator Relationship Specialty Start Date End Date Joyce Tapia MD [address] [place] [address] PCP - General Family Medicine 06/19/12 documented as of this encounter
--- OUTSIDE RECORDS SUMMARY | 2025-03-01 10:49 | XMS_ITS | Encounter Summary ---
Author Organization [employer] Address [address] [facility] [address] 7t [place] [address] Care Team Providers Care Referral And Information Aide Name Role Phone Joyce Tapia MD Primary Care Provider [phone] Reason for Visit * Reason Comments Med Refill Encounter Details Date Type Department Care Team ([facility] Contact Info) Description 12/17/2024 Refill [facility] 230 [place] [address] Kassi Johnston FNP [address] [place] [address] Social History Tobacco Use Types Packs/Day Years [...] [facility] MED [facility] PED[facility] 505 [place] [address] Joyce Tapia MD 505 [place] [address] 03/19/2025 10:30 AM EDT Office Visit [facility] MED [facility] PEDS 505 [place] [address] Ayden Orellana MD 505 [place] [address] 04/03/2025 10:00 AM EDT Medication Management [facility] MED [facility] P[facility] 505 [place] [address] Cristal Muhammad, PharmD 230 [place], [place] [phone] 06/04/2025 11:00 AM EST Clinical Support [facility] P[facility] 505 [place] [address] Katherine Casper, MAKEDA 505 [place] [address] documented as of this encounter Visit Diagnoses Not on filedocumented in this encounter Additional Health Concerns Assessment Noted Time PHQ-9 Depression Total Score: 7 09/15/19 25 9:02 AM EDT documented as of this encounter Care Teams Referral And Information Aide Relationship Specialty Start Date End Date Joyce Tapia MD 230 [place] [address] PCP - General Family Medicine 06/19/12 documented as of this encounter
--- OUTSIDE RECORDS SUMMARY | 2025-03-01 10:49 | XMS_ITS | Encounter Summary ---
Author Organization [employer] Address [address] [facility] 7t [place] [address] Care Team Providers Care Home Health Nurse Name Role Phone Joyce Tapia MD Primary Care Provider [phone] Reason for Visit * Reason Onset Date Comments Med Refill 09/26/2024 Encounter Details Date Type Department Care Team ([facility] st Contact Info) Description 09/26/2024 Refill [facility] MED & PEDS [address] [place], [place] [phone] Joyce Tapia MD 505 [place] [address] Status post surgical removal of nail matrix [...] Info) Description 03/11/2025 11:30 AM EDT Telemedicine [facility] MED & PED[facility] [address] [place] [address] Joyce Tapia MD 505 [place] [address] 03/19/2025 10:30 AM EDT Office Visit [facility] [address] [place] [address] Ayden Orellana MD 505 [place] [address] 04/03/2025 10:00 AM EDT Medication Management [facility] [address] [place] [address] Cristal Muhammad, BobD [address] [place] [address] 06/04/2025 11:00 AM EST Clinical Support [facility] [address] [place] [address] Katherine Casper, MAKEDA 505 [place] [address] documented as of this encounter Visit Diagnoses Diagnosis Status post surgical removal of nail matrix of toe of left foot documented in this encounter Additional Health Concerns Assessment Noted Time PHQ-9 Depression Total Score: 7 09/15/19 25 9:02 AM EDT documented as of this encounter Care Teams Home Health Nurse Relationship Specialty Start Date End Date Joyce Tapia MD [address] [place] [address] PCP - General Family Medicine 06/19/12 documented as of this encounter
--- OUTSIDE RECORDS SUMMARY | 2025-03-01 10:49 | XMS_ITS | Encounter Summary ---
Author Organization [employer] Address [address] [facility] 7t [place] [address] Care Team Providers Care Rv Detailer Name Role Phone Joyce Tapia MD Primary Care Provider [phone] Reason for Visit * Reason Onset Date Comments Medication Question 12/11/2024 Encounter Details Date Type Department Care Team ([facility] st Contact Info) Description 12/11/2024 Telephone [facility] MEDICINE 230 [place] [address] Joyce Tapia MD [address] [place] [address] Medication Question Social History Tobacco Use Types Packs/Day Years [...] encounter Miscellaneous Notes * Telephone Encounter - Donald Hayden - 12/11/2024 2:26 PM EDT Tc from pt requesting call back regarding oxyCODONE (Roxicodone) 5 MG immediate release tablet stating pharmacy is unable to refill medication today because pt was prescribed an 8 day script. Pt alsowants to have dosage increased. Please contact pt at [phone]. documented in this encounter Plan of Treatment Upcoming Encounters Date Type Department Care Team ([facility] st Contact Info) Description 03/11/2025 11:30 AM EDT Telemedicine [facility] MED & PEDS 505 [place] [address] Joyce Tapia MD 505 [place] [address] 03/19/2025 10:30 AM EDT Office Visit [facility] MED [facility] PEDS 505 [place] [address] Ayden Orellana MD 505 [place] [address] 04/03/2025 10:00 AM EDT Medication Management [facility] MED & PEDS 505 [place] [address] Cristal Muhammad PharmD 230 [place] [address] 06/04/2025 11:00 AM EST Clinical Support [facility] MED & PEDS 505 [place] [address] Katherine Casper, RN 505 [place] [address] documented as of this encounter Visit Diagnoses Not on filedocumented in this encounter Additional Health Concerns Assessment Noted Time PHQ-9 Depression Total Score: 7 09/15/19 25 9:02 AM EDT documented as of this encounter Care Teams Rv Detailer Relationship Specialty Start Date End Date Joyce Tapia MD 230 [place] [address] PCP - General Family Medicine 06/19/12 documented as of this encounter
--- OUTSIDE RECORDS SUMMARY | 2025-03-01 10:49 | XMS_ITS | Encounter Summary ---
Author Organization [employer] Address [address] [facility] 7t [place] [address] Care Team Providers Care Learning And Development Officer Name Role Phone Joyce Tapia MD Primary Care Provider [phone] Reason for Visit * Reason Onset Date Comments Med Refill 04/05/2024 Encounter Details Date Type Department Care Team ([facility] st Contact Info) Description 04/05/2024 Refill [facility] MED & PEDS [address] [place], [place] [phone] Joyce Tapia MD 505 [place] [address] Status post surgical removal of nail matrix [...] 03/11/2025 11:30 AM EDT Telemedicine [facility] MED & PEDS 505 [place] [address] Joyce Tapia MD 505 [place] [address] 03/19/2025 10:30 AM EDT Office Visit [facility] MED & PEDS [address] [place] [phone] Ayden Orellana MD 505 [place] [address] 04/03/2025 10:00 AM EDT Medication Management [facility] MED & PEDS [address] [place] [address] Cristal Muhammad PharmD [address] [place] [address] 06/04/2025 11:00 AM EST Clinical Support [facility] MED & PEDS [address] [place] [address] Katherine Casper, MAKEDA 505 [place] [address] documented as of this encounter Visit Diagnoses Diagnosis Status post surgical removal of nail matrix of toe of left foot documented in this encounter Care Teams Learning And Development Officer Relationship Specialty Start Date End Date Joyce Tapia MD [address] [place] [address] PCP - General Family Medicine 06/19/12 documented as of this encounter
--- OUTSIDE RECORDS SUMMARY | 2025-03-01 10:49 | XMS_ITS | Encounter Summary ---
Author Organization [employer] Address [address] [place] [address] 7 [place] [address] Care Team Providers Care Installation Drafter Name Role Phone Joyce Tapia MD Primary Care Provider [phone] Reason for Visit * Reason Comments Med Refill Encounter Details Date Type Department Care Team (Late st Contact Info) Description 06/12/2023 Refill [facility] MED & PEDS 505 [place], [place] [phone] Christy Ray MD 505 [place] [address] Muscle spasm Social History Tobacco Use Types [...] Description 03/11/2025 11:30 AM EDT Telemedicine [facility] MED & PEDS 505 [place], [place] [phone] Joyce Tapia MD 505 [place] [address] 03/19/2025 10:30 AM EDT Office Visit [facility] MED [facility] PEDS 505 [place] [address] Ayden Orellana MD 505 [place] [address] 04/03/2025 10:00 AM EDT Medication Management [facility] MED & PEDS 505 [place] [address] Cristal Muhammad PharmD 230 [place] [address] 06/04/2025 11:00 AM EST Clinical Support [facility] MED & PED[facility] 505 [place] [address] Katherine Casper, MAKEDA 505 [place] [address] documented as of this encounter Visit Diagnoses Diagnosis Muscle spasm Spasm of muscle documented in this encounter Care Teams Installation Drafter Relationship Specialty Start Date End Date Joyce Tapia MD [address] [place] [address] PCP - General Family Medicine 06/19/12 documented as of this encounter
--- OUTSIDE RECORDS SUMMARY | 2025-03-01 10:49 | XMS_ITS | Encounter Summary ---
Author Organization [employer] Address [address] [facility] 7t [place] [address] Care Team Providers Care Floor Director Name Role Phone Joyce Tapia MD Primary Care Provider [phone] Reason for Visit * Reason Onset Date Comments Med Refill 12/02/2024 Encounter Details Date Type Department Care Team (Late st Contact Info) Description 12/02/2024 Refill [facility] MEDICINE 230 [place] [address] Joyce Tapia MD [address] [place] [address] Status post surgical removal of nail matrix [...] 03/11/2025 11:30 AM EDT Telemedicine [facility] MED & PEDS 505 [place] [address] Joyce Tapia MD 505 [place] [address] 03/19/2025 10:30 AM EDT Office Visit [facility] MED & PEDS 505 [place] [address] Ayden Orellana MD 505 [place] [address] 04/03/2025 10:00 AM EDT Medication Management [facility] MED & PEDS 505 [place] [address] Cristal Muhammad, BobD 230 [place] [address] 06/04/2025 11:00 AM EST Clinical Support [facility] MED & PEDS 505 [place] [address] Katherine Casper, MAKEDA 505 [place] [address] documented as of this encounter Visit Diagnoses Diagnosis Status post surgical removal of nail matrix of toe of left foot documented in this encounter Additional Health Concerns Assessment Noted Time PHQ-9 Depression Total Score: 7 09/15/19 25 9:02 AM EDT documented as of this encounter Care Teams Floor Director Relationship Specialty Start Date End Date Joyce Tapia MD [address] [place] [address] PCP - General Family Medicine 06/19/12 documented as of this encounter
--- OUTSIDE RECORDS SUMMARY | 2025-03-01 10:49 | XMS_ITS | Encounter Summary ---
Author Organization [employer] Address [address] [facility] 7t [place] [address] Care Team Providers Care Incinerator Plant Supervisor Name Role Phone Joyce Tapia MD Primary Care Provider [phone] Reason for Visit * Reason Onset Date Comments Med Refill 12/03/2024 Encounter Details Date Type Department Care Team ([facility] st Contact Info) Description 12/03/2024 Telephone [facility] MEDICINE 230 [place], [place] [phone] Joyce Tapia MD [address] [place], [place] [phone] Med Refill Social History Tobacco Use Types [...] * Telephone Encounter - Renee Ramey - 12/03/2024 8:25 AM EDT TC from pt requesting medication refill. Medications needing refill : oxyCODONE (Roxicodone) 5 MG immediate release tablet To be sent to: [facility] documented in this encounter Plan of Treatment Upcoming Encounters Date Type Department Care Team ([facility] st Contact Info) Description 03/11/2025 11:30 AM EDT Telemedicine [facility] MED & PEDS 505 [place] [address] Joyce Tapia MD 505 [place] [address] 03/19/2025 10:30 AM EDT Office Visit [facility] MED & PEDS [address] [place] [address] Ayden Orellana MD 505 [place] [address] 04/03/2025 10:00 AM EDT Medication Management [facility] MED & PEDS [address] [place] [address] Cristal Muhammad, Deonte 230 [place] [address] 06/04/2025 11:00 AM EST Clinical Support [facility] MED & PEDS [address] [place] [address] Katherine Capser, RN 505 [place] [address] documented as of this encounter Visit Diagnoses Not on filedocumented in this encounter Additional Health Concerns Assessment Noted Time PHQ-9 Depression Total Score: 7 09/15/19 25 9:02 AM EDT documented as of this encounter Care Teams Incinerator Plant Supervisor Relationship Specialty Start Date End Date Joyce Tapia MD 230 [place] [address] PCP - General Family Medicine 06/19/12 documented as of this encounter
--- OUTSIDE RECORDS SUMMARY | 2025-03-01 10:49 | XMS_ITS | Encounter Summary ---
Author Organization [employer] Address [address] [facility] 7t [place] [address] Care Team Providers Care Bone Glue Maker Name Role Phone Joyce Tapia MD Primary Care Provider Encounter Details Date Type Department Care Team (Late Contact Info) Description 10/26/2022 Orders Only [facility] MED & PEDS 505 [place], [place] [phone] Emerson Keith MD 505 [place], [place] [phone] Social History Tobacco Use Types Packs/Day Years [...] Department Care Team (Late Contact Info) Description 03/11/2025 11:30 AM EDT Telemedicine [facility] MED [facility] PEDS 505 [place], [place] [phone] Joyce Tapia MD 505 [place] [address] 03/19/2025 10:30 AM EDT Office Visit [facility] MED & PEDS 505 [place] [address] Ayden Orellana MD 505 [place] [address] 04/03/2025 10:00 AM EDT Medication Management [facility] MED & PEDS [address] [place] [address] Cristal Muhammad PharmD 230 [place] [address] 06/04/2025 11:00 AM EST Clinical Support [facility] MED & PEDS [address] [place] [phone] Katherine Casper, MAKEDA 505 [place] [address] documented as of this encounter Visit Diagnoses Not on filedocumented in this encounter Care Teams Bone Glue Maker Relationship Specialty Start Date End Date Joyce Tapia MD 230 [place] [address] PCP - General Family Medicine 06/19/12 documented as of this encounter
--- OUTSIDE RECORDS SUMMARY | 2025-03-01 10:49 | XMS_ITS | Encounter Summary ---
Author Organization [employer] Address [address] [facility] 7t [place] [address] Care Team Providers Care Electric Meter Tester Shop Name Role Phone Joyce Tapia MD Primary Care Provider [phone] Reason for Visit * Reason Onset Date Comments Med Refill 06/25/2024 Encounter Details Date Type Department Care Team (Late st Contact Info) Description 06/25/2024 Refill [facility] MEDICINE [address] [facility] [place] [address] Joyce Tapia MD [address] [place], [place] [phone] Status post surgical removal of nail matrix [...] Telemedicine [facility] MED & PEDS [address] [place] [address] Joyce Tapia MD 505 [place] [address] 03/19/2025 10:30 AM EDT Office Visit [facility] MED & PEDS [address] [place] [address] Ayden Orellana MD 505 [place] [address] 04/03/2025 10:00 AM EDT Medication Management [facility] MED & PED[facility] [address] [place] [address] Cristal Muhammad PharmD [address] [place] [address] 06/04/2025 11:00 AM EST Clinical Support [facility] MED & PEDS [address] [place] [address] Katherine Casper, MAKEDA 505 [place] [address] documented as of this encounter Visit Diagnoses Diagnosis Status post surgical removal of nail matrix of toe of left foot documented in this encounter Care Teams Electric Meter Tester Shop Relationship Specialty Start Date End Date Joyce Tapia MD 230 [place] [address] PCP - General Family Medicine 06/19/12 documented as of this encounter
--- OUTSIDE RECORDS SUMMARY | 2025-03-01 10:49 | XMS_ITS | Encounter Summary ---
Author Organization [employer] Address [address] [facility] 7t [place] [address] Care Team Providers Care Commissary Helper Name Role Phone Joyce Tapia MD Primary Care Provider [phone] Reason for Visit * Reason Onset Date Comments Med Refill 06/28/2023 Encounter Details Date Type Department Care Team ([facility] st Contact Info) Description 06/28/2023 Telephone [facility] MEDICINE 230 [place], [place] [phone] Joyce Tapia MD [address] [place] [address] Med Refill Social History Tobacco Use Types [...] to: [facility] [place] - [address] [facility] documented in this encounter Plan of Treatment Upcoming Encounters Date Type Department Care Team (Late st Contact Info) Description 03/11/2025 11:30 AM EDT Telemedicine [facility] MED & PEDS 505 [place] [address] Joyce Tapia MD 505 [place] [address] 03/19/2025 10:30 AM EDT Office Visit [facility] MED & PEDS 505 [place] [address] Ayden Orellana MD 505 [place] [address] 04/03/2025 10:00 AM EDT Medication Management [facility] MED & PEDS [address] [place] [address] Cristal Muhammad, BobD 230 [place] [address] 06/04/2025 11:00 AM EST Clinical Support [facility] MED & PEDS [address] [place] [address] Katherine Casper, MAKEDA 505 [place] [address] documented as of this encounter Visit Diagnoses Not on filedocumented in this encounter Care Teams Commissary Helper Relationship Specialty Start Date End Date Joyce Tapia MD 230 [place] [address] PCP - General Family Medicine 06/19/12 documented as of this encounter
[2025-03-01 11:23] LABS: MANUAL DIFF FLAG NO
[2025-03-01 11:34] LABS: Hematocrit 42.0 % (37.0-47.0); Hemoglobin 13.9 g/dl (12.0-16.0); Imm Gran Abs Auto 0.03 X10*3/uL (0.00-0.03); Imm Gran Pct Auto 0.4 % (0.0-0.4); Lymphocytes Absolute Auto 1.9 X10*3/uL (1.2-4.9); Mean Corpuscular HGB Conc 33.1 g/dl (31.0-35.0); Mean Corpuscular Hemoglobin 29.4 pg (27.0-33.0); Mean Corpuscular Volume 88.8 fL (80.0-98.0); NRBC Abs Auto 0.000 X10*3/uL (0.0-0.012); NRBC Pct Auto 0.0 /100WBC (0.0-0.2); Platelet Count 178 X10*3/uL (160-400); Red Blood Count 4.73 X10*6/uL (4.20-5.50); White Blood Count 7.5 X10*3/uL (4.8-10.8)
[2025-03-01 11:53] LABS: Alanine Aminotransferase 34 U/L (0-31); Albumin Level 3.9 g/dL (3.5-5.0); Alkaline Phosphatase 82 U/L (39-117); Anion Gap 11 (12-20); Aspartate Amino Transferase 28 U/L (5-31); Blood Urea Nitrogen 14 mg/dL (9-16); Calcium 8.9 mg/dL (8.4-10.2); Carbon Dioxide 27 mmol/L (22-29); Chloride 107 mmol/L (96-108); Creatinine Clr Calc Pharmacy 76.8; Estimated Glomerular Filt Rate > 60; Magnesium 2.1 mg/dL (1.6-2.6); Potassium 4.0 mmol/L (3.3-5.1); Sodium 141 mmol/L (135-145); Total Protein 6.3 g/dL (6.5-8.0)
[2025-03-01 12:10] VITALS: BP 117/60; PULSE 66; RESP 16; TEMP 36.6; O2SAT 99
--- NOTE | 2025-03-01 13:04 | PC.NURSE ---
Post op shoe applied
[2025-03-01 13:30] VITALS: BP 117/60; PULSE 66; RESP 16; TEMP 36.6; O2SAT 99
== END 2025-03-01 13:31 | disposition home or self-care (01) ==
PROVIDERS: Physician Assistant Medical; Emergency Provider Emergency Medicine; PCP Student in an Organized Health Care Education/Training Program
DX: M79.672 Pain in left foot (principal); E11.8 Type 2 diabetes mellitus with unspecified complications; M79.7 Fibromyalgia
CPT/HCPCS: 36415; 73630; 80053; 83735; 85025; 93971; 99284

== ENCOUNTER → 2025-03-01 10:24 | Outpatient (BNV) | payer MEDICAID, SELFPAY | PROVIDERS: Emergency Provider Emergency Medicine; PCP Student in an Organized Health Care Education/Training Program; Visit Provider Radiology Diagnostic Radiology | DX: M79.672 Pain in left foot (principal); E11.9 Type 2 diabetes mellitus without complications | CPT/HCPCS: 73630; 93971 ==

== ENCOUNTER 2025-03-04 18:23 | Emergency (ER) | payer MEDICAID, SELFPAY ==
--- NOTE | ~2025-03-04 | XR_ITS ---
CLINICAL HISTORY: pain 3 view left foot Comparison: CR/MS/SR - XR FOOT 3 OR MORE VIEWS LEFT - 03/01/25 10:42 EDT Findings: Bones intact. No dislocations. Mild midfoot spurring. Moderate-sized plantar calcaneal spur. No ankle effusion. No radiopaque foreign body. IMPRESSION: 1. No evidence of acute fracture or dislocation. [id number]-zq-tvofrbqu DJD. This document has been electronically signed by: Ruben Bermeo MD on 03/04/2025 20:23:06
[2025-03-04 18:54] VITALS: BP 114/67; PULSE 79; RESP 20; TEMP 37; O2SAT 98; BMI 27.5
--- NOTE | 2025-03-04 18:59 | ED.GENADULT ---
HPI - General Adult General Chief complaint: Extremity Injury, Lower Stated complaint: lt foot swelling/pain Time Seen by Provider: 03/04/25 21:33 Source: patient Limitations: no limitations History of Present Illness ED Provider: Nayely Dawn PA-C HPI narrative: 64-year-old female with a history of T2DM, fibromyalgia, DVT (no longer on AC) presents to the ED today for evaluation of atraumatic left foot pain x6 days. No change in symptoms, the patient was seen here 3 days ago with a negative workup. Patient is still denies trauma that preceded her discomfort. Related Data Home Medications ?Medication ?Instructions ?Recorded ?Confirmed hydroxyzine HCl 25 mg tablet 50 mg PO BEDTIME 06/04/20 01/18/25 sertraline 100 mg tablet 1 tab PO BEDTIME 10/20/21 01/18/25 tizanidine 4 mg tablet 1 tab PO BEDTIME PRN Pain 10/20/21 01/18/25 cyanocobalamin (vitamin B-12) 1,000 mcg PO QAM 06/03/22 01/18/25 1,000 mcg tablet metformin 500 mg tablet,extended 500 mg PO BID 06/03/22 01/18/25 release 24 hr albuterol sulfate 90 mcg/actuation 2 puff inhalation Q4-6H PRN 08/25/23 01/18/25 aerosol inhaler Shortness Of Breath Or Wheezing oxycodone 5 mg tablet 5 mg PO Q6H PRN severe pain 09/27/23 01/18/25 pramipexole 0.5 mg tablet 0.5 mg PO TID 09/27/23 01/18/25 ferrous sulfate 325 mg (65 mg 325 mg PO QAM 10/27/23 01/18/25 iron) tablet varenicline tartrate 1 mg tablet 1 mg PO BID 04/24/24 01/18/25 blood sugar diagnostic (FreeStyle #10 ea 01/10/25 01/10/25 Lite Strips) empagliflozin 10 mg tablet 10 mg PO QAM 01/10/25 01/18/25 (Jardiance) esomeprazole magnesium 20 mg 20 mg PO QAM 01/10/25 01/18/25 capsule,delayed release furosemide 20 mg tablet 10 mg PO DAILY 01/10/25 01/18/25 gabapentin 100 mg capsule 100 mg PO BID 01/10/25 01/18/25 hydrochlorothiazide 12.5 mg capsule 12.5 mg PO QAM 01/10/25 01/18/25 lancets 33 gauge (Easy Touch Twist #100 ea 01/10/25 01/10/25 Lancets) ondansetron HCl 4 mg tablet 4 mg PO Q12H PRN nausea/vomiting 01/10/25 01/18/25 pantoprazole 40 mg tablet,delayed 40 mg PO QAM 01/10/25 01/18/25 release sucralfate 1 gram tablet 1 g PO QID 01/10/25 01/18/25 zolpidem 5 mg tablet 5 mg PO BEDTIME PRN insomnia 01/10/25 01/18/25 Chantix 01/31/25 01/31/25 Previous Rx's ?Medication ?Instructions ?Recorded cholecalciferol (vitamin D3) 50 50 mcg PO DAILY #30 caps 12/15/20 mcg (2,000 unit) capsule fluticasone propionate 50 2 spray intranasal DAILY #16 grams 06/21/21 mcg/actuation nasal spray,suspension (Flonase Allergy Relief) blood-glucose meter (FreeStyle #1 ea 08/21/21 Lite Meter kit) blood sugar diagnostic (FreeStyle #150 strips 03/30/22 Lite Strips) thiamine HCl (vitamin B1) 100 mg 100 mg PO DAILY #90 tabs 06/07/22 tablet lidocaine 5 % topical patch 1 patch topical DAILY #15 ea 11/10/22 (Lidoderm) cyclobenzaprine 10 mg tablet 10 mg PO Q8H #20 tabs 01/07/23 meclizine 25 mg tablet 25 mg PO TID PRN dizziness #20 tabs 02/11/23 albuterol sulfate 1.25 mg/3 mL 1.25 mg (3 mL) inhalation QID PRN 06/11/23 solution for nebulization shortness of breath or wheezing #90 mL diclofenac sodium 1 % topical gel 2 g topical BID PRN pain (scale 07/18/23 (Aleve (diclofenac)) score 4-6) #100 grams barium sulfate 2 % (w/v) oral 450 ml PO ONCE #900 mL 07/31/24 suspension (Readi-Cat 2) hydrocodone 5 mg-acetaminophen 325 1 tab PO Q6H PRN pain #15 tabs 01/31/25 mg tablet cephalexin 500 mg capsule 500 mg PO Q8H 7 days #21 caps 02/13/25 methocarbamol 750 mg tablet 1,500 mg (2 x 750 mg) PO Q8H PRN 03/04/25 pain, moderate #24 tabs methylprednisolone 4 mg tablets in 4 mg PO QAM #21 ea 03/04/25 a dose pack (Medrol (Coleman)) Allergies Allergy/AdvReac Type Severity Reaction Status Date / Time prochlorperazine (From Allergy Severe Seizure Verified 03/04/25 18:56 Compazine) sulfamethoxazole (From Allergy Severe BLISTERS- Verified 03/04/25 18:56 BACTRIM) DELGADO - NERVE ENDINGS IN HAND/ERYTHEMA MULTIFORM trimethoprim (From BACTRIM) Allergy Severe BLISTERS- Verified 03/04/25 18:56 DELGADO - NERVE ENDINGS IN HAND/ERYTHEMA MULTIFORM Penicillins Allergy Intermediate HIVES Verified 03/04/25 18:56 latex (Latex) Allergy Mild RASH Verified 03/04/25 18:56 transparent dressing AdvReac Severe Redness of Verified 03/04/25 18:56 (Tegaderm) Skin theophylline AdvReac Intermediate TACHYCARDIA Verified 03/04/25 18:56 Review of Systems Review of Systems: Yes all other systems are reviewed and are negative Constitutional: Constitutional: Denies fatigue and Denies fever(s) Musculoskeletal: Musculoskeletal: Reports arthralgias and Denies joint swelling Integumentary/Breasts: Skin/Breast: Reports erythema Endocrine: Endocrine: Denies fatigue PMFSH Past Medical History Attestation statement: The following information was validated with the patient. Medical History Hidradenitis suppurativa Edema Fibromyalgia Type 2 diabetes mellitus without complications Neuropathy Abscess Abdominal pain Infection of skin due to methicillin resistant Staphylococcus aureus (MRSA) Numbness of right hand COVID-19 Sebaceous cyst Cubital tunnel syndrome on left Contusion of right ankle Numbness and tingling in left hand Left hand pain Stiffness of left hand joint Emesis Overweight (BMI 25.0-29.9) Borderline diabetes Dyslipidemia Non-toxic multinodular goiter Diabetes type 2, controlled History of restless legs syndrome Anxiety Depression High cholesterol Asthma DVT (deep venous thrombosis) GERD (gastroesophageal reflux disease) Anastomotic ulcer Surgical History Hx of colonoscopy H/O removal of cyst (02/03/23) History of removal of cyst (07/28/22) Hx of cholecystectomy History of surgery History of surgery on left wrist Hx of elbow surgery History of excision of epidermal inclusion cyst (03/23/22) Hx of excision of epidermal inclusion cyst (12/25/21) History of excision of mass (10/26/21) S/P trigger finger release History of tooth extraction Hx of hand surgery Hx of esophagogastroduodenoscopy S/P gastric bypass History of hysterectomy Family History Family History Mother Diabetes mellitus CHF (congestive heart failure) Kidney failure Cervical cancer Brother No problems noted. Brother No problems noted. 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 Physical Exam ED Vital Signs: Vital Signs - 24 hr 03/04/25 22:20 03/04/25 23:48 Temperature 98.5 F 98.5 F Pulse Rate 77 77 Respiratory Rate 18 18 Blood Pressure 118/66 118/66 Pulse Oximetry 98 98 Oxygen Delivery Method Room Air Room Air BMI result Body Mass Index 27.5 Const Other: Alert, Orientation/consciousness: patient oriented x3 Resp Effort & Inspection: normal respiratory effort Cardio Other: Normal peripheral perfusion Skin Other: Warm dry no rash Neuro General: patient oriented x3, gait normal, no focal motor deficits and CN's II-XI intact bilaterally Extrem Other: No swelling no erythema no warmth over the left foot unremarkable exam Psych Other: Cooperative, Course Course Course Narrative: RME: 64 yold femamle with pmh of DM presents to the continuous left foot pain. casper was seen here this past tuesday, but states still having pain. patient states big toe is bigger. Medications Administered Discontinued Medications Generic Name Dose Route Start Last Admin Trade Name Thomas PRN Reason Stop Dose Admin Acetaminophen 975 mg 03/04/25 22:22 03/04/25 22:27 Acetaminophen 325 Mg Tablet PO 03/04/25 22:23 975 mg ONCE ONE Administration Prednisone 10 mg 03/04/25 22:21 03/04/25 22:27 Prednisone 10 Mg Tablet PO 03/04/25 22:22 10 mg ONCE ONE Administration Medical Decision Making Medical Decision Making MDM Narrative: 64-year-old female with a history of T2DM, fibromyalgia, DVT (no longer on AC) presents to the ED today for evaluation of atraumatic left foot pain x6 days. No change in symptoms, the patient was seen here 3 days ago with a negative workup. Patient is still denies trauma that preceded her discomfort. Problem: Fibromyalgia, chronic pain, diabetes History: Per patient I have considered the following differential diagnoses: Arthritis, septic joint, fracture, dislocation, sprain, plantar fasciitis Plan: Labs and X-rays ordered from triage, she has significant arthritic changes, this is the likely cause of her pain. We will send her with Podiatry consult, Medrol Dosepak, short script for muscle relaxant. She can not have NSAIDs secondary to being a gastric bypass patient. I have independently reviewed the following tests: Labs: No leukocytosis, not anemic, no electrolyte abnormality noted X-ray left foot:Findings: Bones intact. No dislocations. Mild midfoot spurring. Moderate-sized plantar calcaneal spur. No ankle effusion. No radiopaque foreign body. IMPRESSION: 1. No evidence of acute fracture or dislocation. [id number] DJD. Differential Diagnosis Differential Diagnoses: The differential diagnosis associated with the presentation includes See [facility] Admission/Observation Consideration of admission/observation: Escalation of care including admission/observation considered Not applicable Lab Data [facility] Lab Attestation statement: I reviewed the patient's lab results. 03/04/25 19:20 03/04/25 19:20 Labs: Lab Results 03/04/25 Range/Units 19:20 WBC 10.3 (4.8-10.8) X10*3/uL RBC 4.69 (4.20-5.50) X10*6/uL Hgb 14.0 (12.0-16.0) g/dl Hct 41.0 (37.0-47.0) % MCV 87.4 (80.0-98.0) fL MCH 29.9 (27.0-33.0) pg MCHC 34.1 (31.0-35.0) g/dl RDW 12.9 (11.0-16.0) % Plt Count 178 (160-400) X10*3/uL MPV 9.6 (9.4-12.3) fL Immature Gran % (Auto) 0.3 (0.0-0.4) % Neut % (Auto) 67.0 (45-73) % Lymph % (Auto) 23.9 (20-40) % Tripp % (Auto) 6.5 (2-11) % Eos % (Auto) 2.0 (0-4) % Baso % (Auto) 0.3 (0-2) % Lymph # (Auto) 2.5 (1.2-4.9) X10*3/uL Tripp # (Auto) 0.7 (0.1-1.2) X10*3/uL Eos # (Auto) 0.2 (0.0-0.4) X10*3/uL Baso # (Auto) 0.0 (0.0-0.2) X10*3/uL Abs Immat Gran (auto) 0.03 (0.00-0.03) X10*3/uL Absolute Neuts (auto) 6.9 (2.0-8.3) x10*3/uL Absolute Nucleated RBC 0.000 (0.0-0.012) X10*3/uL Nucleated RBC % (auto) 0.0 (0.0-0.2) /100WBC ESR 7 (0-20) MM/HR PT 10.8 L (10.9-12.4) SEC INR 0.9 (0.9-1.1) APTT 28.4 (26.7-34.1) SEC Sodium 143 (135-145) mmol/L Potassium 4.0 (3.3-5.1) mmol/L Chloride 110 H (96-108) mmol/L Carbon Dioxide 27 (22-29) mmol/L Anion Gap 10 L (12-20) BUN 19 H (9-16) mg/dL Creatinine 0.85 (0.5-1.4) mg/dL Estim Creat Clear Calc 69.4 Estimated GFR > 60 Random Glucose 80 (60-115) mg/dL Uric Acid 3.1 (2.4-5.7) mg/dL Calcium 8.7 (8.4-10.2) mg/dL Total Bilirubin 0.3 (0.0-1.0) mg/dL AST 24 (5-31) U/L ALT 32 H (0-31) U/L Alkaline Phosphatase 92 (39-117) U/L C-Reactive Protein < 0.10 (< or = 0.50) mg/dL Total Protein 6.5 (6.5-8.0) g/dL Albumin 4.1 (3.5-5.0) g/dL Radiology Impression Discussion of test interpretation with radiology: I have reviewed the radiologist's reading. Chronic Conditions Patient?s care impacted by: Diabetes Discharge Plan Discharge Clinical Impression: Osteoarthritis of foot, left, Degenerative joint disease of foot Patient Disposition: Home, Self-Care Instructions: Osteoarthritis (ED), Self-Care Measures with a Chronic Disease (ED) Additional Instructions: You were found to have significant arthritic changes of the foot. Use the Medrol taper as directed this is an anti-inflammatory. Alternate with [id number] Tylenol 1000 mg taken every 8 hours. Use the methocarbamol as needed for further pain. You should really follow up with a sandblaster glass, you may require cortisone joint injections. Prescriptions: New methylprednisolone [Medrol (Coleman)] 4 mg tablets,dose pack 4 mg PO QAM Qty: 21 0RF Rx Instructions: Take per package instructions methocarbamol 750 mg tablet 1,500 mg PO Q8H PRN (Reason: pain, moderate) Qty: 24 0RF No Action cholecalciferol (vitamin D3) 50 mcg (2,000 unit) capsule 50 mcg PO DAILY Qty: 30 11RF (DME) FreeStyle Lite Strips Strip See Rx Instructions .ROUTE .COMPLEX Qty: 150 6RF Dose Instruction: USE TO TEST BLOOD SUGAR TWICE DAILY Rx Instructions: USE TO TEST BLOOD SUGAR TWICE DAILY thiamine HCl (vitamin B1) 100 mg tablet 100 mg PO DAILY Qty: 90 3RF Readi-Cat 2 2 % (w/v) suspension 450 ml PO ONCE Qty: 900 0RF Rx Instructions: Drink both bottles [address] scan hydroxyzine HCl 25 mg tablet 50 mg PO BEDTIME sertraline 100 mg tablet 1 tab PO BEDTIME tizanidine 4 mg tablet 1 tab PO BEDTIME PRN (Reason: Pain) fluticasone propionate [Flonase Allergy Relief] 50 mcg/actuation spray,suspension 2 spray intranasal DAILY Qty: 16 0RF Rx Instructions: administer into each nostril metformin 500 mg tablet extended release 24 hr 500 mg PO BID albuterol sulfate 1.25 mg/3 mL solution for nebulization 1.25 mg inhalation QID PRN (Reason: shortness of breath or wheezing) Qty: 90 0RF albuterol sulfate 90 mcg/actuation Hfa Aerosol Inhaler 2 puff INHALATION Q4-6H PRN (Reason: Shortness Of Breath Or Wheezing) lidocaine [Lidoderm] 5 % adhesive patch,medicated 1 patch topical DAILY Qty: 15 0RF Rx Instructions: leave on most painful area for up to 12 hrs cyclobenzaprine 10 mg tablet 10 mg PO Q8H Qty: 20 0RF meclizine 25 mg tablet 25 mg PO TID PRN (Reason: dizziness) Qty: 20 0RF diclofenac sodium [Aleve (diclofenac)] 1 % gel 2 g topical BID PRN (Reason: pain (scale score 4-6)) Qty: 100 0RF Rx Instructions: apply to single elbow, wrist or hand; for hand includes palm/fingers/back of hand Chantix hydrocodone-acetaminophen 5-325 mg tablet 1 tab PO Q6H PRN (Reason: pain) Qty: 15 0RF Rx Instructions: Partial Fill upon patient request. (DME) blood-glucose meter [FreeStyle Lite Meter] Kit See Rx Instructions .Route Qty: 1 0RF Rx Instructions: As directed test blood sugar two times a day cyanocobalamin (vitamin B-12) 1,000 mcg tablet 1,000 mcg PO QAM oxycodone 5 mg tablet 5 mg PO Q6H PRN (Reason: severe pain) pramipexole 0.5 mg tablet 0.5 mg PO TID varenicline tartrate 1 mg tablet 1 mg PO BID cephalexin 500 mg capsule 500 mg PO Q8H 7 Days Qty: 21 0RF ferrous sulfate 325 mg (65 mg iron) tablet 325 mg PO QAM (DME) FreeStyle Lite Strips Strip See Rx Instructions .ROUTE TID Qty: 10 Rx Instructions: As directed pantoprazole 40 mg tablet,delayed release (DR/EC) 40 mg PO QAM zolpidem 5 mg tablet 5 mg PO BEDTIME PRN (Reason: insomnia) furosemide 20 mg tablet 10 mg PO DAILY gabapentin 100 mg capsule 100 mg PO BID (DME) lancets [Easy Touch Twist Lancets] 33 gauge misc See Rx Instructions .ROUTE TID Qty: 100 Rx Instructions: As directed Jardiance 10 mg tablet 10 mg PO QAM sucralfate 1 gram tablet 1 g PO QID ondansetron HCl 4 mg tablet 4 mg PO Q12H PRN (Reason: nausea/vomiting) hydrochlorothiazide 12.5 mg capsule 12.5 mg PO QAM esomeprazole magnesium 20 mg capsule,delayed release(DR/EC) 20 mg PO QAM Referrals: Gladis Fuller DPM [Physician, Podiatry] Referral Note: DJD left foot with bone spurs Interventions: ED Discharge Assessment Last Done: 03/04/25 23:48 Discharge Date/Time: 03/04/25 23:49 Print Language: Estonian
[2025-03-04 19:25] LABS: MANUAL DIFF FLAG NO
[2025-03-04 19:26] LABS: Hematocrit 41.0 % (37.0-47.0); Hemoglobin 14.0 g/dl (12.0-16.0); Imm Gran Abs Auto 0.03 X10*3/uL (0.00-0.03); Imm Gran Pct Auto 0.3 % (0.0-0.4); Lymphocytes Absolute Auto 2.5 X10*3/uL (1.2-4.9); Mean Corpuscular HGB Conc 34.1 g/dl (31.0-35.0); Mean Corpuscular Hemoglobin 29.9 pg (27.0-33.0); Mean Corpuscular Volume 87.4 fL (80.0-98.0); NRBC Abs Auto 0.000 X10*3/uL (0.0-0.012); NRBC Pct Auto 0.0 /100WBC (0.0-0.2); Platelet Count 178 X10*3/uL (160-400); Red Blood Count 4.69 X10*6/uL (4.20-5.50); White Blood Count 10.3 X10*3/uL (4.8-10.8)
[2025-03-04 19:33] LABS: INTERNATIONAL NORM RATIO 0.9 (0.9-1.1); Prothrombin Time 10.8 SEC (10.9-12.4)
[2025-03-04 19:35] LABS: Partial Thromboplastin Time 28.4 SEC (26.7-34.1)
[2025-03-04 19:55] LABS: Alanine Aminotransferase 32 U/L (0-31); Albumin Level 4.1 g/dL (3.5-5.0); Alkaline Phosphatase 92 U/L (39-117); Anion Gap 10 (12-20); Aspartate Amino Transferase 24 U/L (5-31); Blood Urea Nitrogen 19 mg/dL (9-16); Calcium 8.7 mg/dL (8.4-10.2); Carbon Dioxide 27 mmol/L (22-29); Chloride 110 mmol/L (96-108); Creatinine Clr Calc Pharmacy 69.4; Estimated Glomerular Filt Rate > 60; Potassium 4.0 mmol/L (3.3-5.1); Sodium 143 mmol/L (135-145); Total Protein 6.5 g/dL (6.5-8.0); Uric Acid 3.1 mg/dL (2.4-5.7)
[2025-03-04 22:20] VITALS: BP 118/66; PULSE 77; RESP 18; TEMP 36.9; O2SAT 98
[2025-03-04 23:48] VITALS: BP 118/66; PULSE 77; RESP 18; TEMP 36.9; O2SAT 98
== END 2025-03-04 23:49 | disposition home or self-care (01) ==
PROVIDERS: Physician Assistant; Emergency Provider Emergency Medicine; PCP Student in an Organized Health Care Education/Training Program
DX: M19.072 Primary osteoarthritis, left ankle and foot (principal); M79.672 Pain in left foot; E11.9 Type 2 diabetes mellitus without complications
CPT/HCPCS: 36415; 73630; 80053; 84550; 85025; 85610; 85652; 85730; 86140; 99283

== ENCOUNTER → 2025-03-04 19:05 | Outpatient (BNV) | payer MEDICAID, SELFPAY | PROVIDERS: PCP Student in an Organized Health Care Education/Training Program; Visit Provider Student in an Organized Health Care Education/Training Program | DX: M79.672 Pain in left foot (principal) | CPT/HCPCS: 73630 ==

== ENCOUNTER 2025-03-14 10:21 | Outpatient (AMB) | payer MEDICAID, SELFPAY ==
--- NOTE | 2025-03-14 10:28 | MHC.OFFVIS ---
Intake Visit Reasons: Testing follow up Allergies prochlorperazine (From Compazine) Allergy (Severe, Verified 03/04/25 18:56) Seizure sulfamethoxazole (From BACTRIM) Allergy (Severe, Verified 03/04/25 18:56) BLISTERS- DELGADO - NERVE ENDINGS IN HAND/ERYTHEMA MULTIFORM trimethoprim (From BACTRIM) Allergy (Severe, Verified 03/04/25 18:56) BLISTERS- DELGADO - NERVE ENDINGS IN HAND/ERYTHEMA MULTIFORM Penicillins Allergy (Intermediate, Verified 03/04/25 18:56) HIVES latex (Latex) Allergy (Mild, Verified 03/04/25 18:56) RASH transparent dressing (Tegaderm) Adverse Reaction (Severe, Verified 03/04/25 18:56) Redness of Skin theophylline Adverse Reaction (Intermediate, Verified 03/04/25 18:56) TACHYCARDIA HPI Comments Details: 64 years old right-handed woman with diagnosis of diabetes, status post gastric bypass surgery, chronic back pain treated with oxycodone, carpal tunnel syndrome status post bilateral surgery, and fibromyalgia was here with complaints of bilateral hand stiffness and weakness and headaches. These symptoms were going on for many months. Her fingers and hands were stiffening up and she was seeing Dr. Bautista, hand surgeon, for treatment. She continues to complain of pain in different areas of her body including head and neck and bilateral hand stiffness and pain. [facility] Medical History Hidradenitis suppurativa Edema Fibromyalgia Type 2 diabetes mellitus without complications Neuropathy Abscess Abdominal pain Infection of skin due to methicillin resistant Staphylococcus aureus (MRSA) Numbness of right hand COVID-19 Sebaceous cyst Cubital tunnel syndrome on left Contusion of right ankle Numbness and tingling in left hand Left hand pain Stiffness of left hand joint Emesis Overweight (BMI 25.0-29.9) Borderline diabetes Dyslipidemia Non-toxic multinodular goiter Diabetes type 2, controlled History of restless legs syndrome Anxiety Depression High cholesterol Asthma DVT (deep venous thrombosis) GERD (gastroesophageal reflux disease) Anastomotic ulcer Surgical History Hx of colonoscopy H/O removal of cyst (02/03/23) History of removal of cyst (07/28/22) Hx of cholecystectomy History of surgery History of surgery on left wrist Hx of elbow surgery History of excision of epidermal inclusion cyst (03/23/22) Hx of excision of epidermal inclusion cyst (12/25/21) History of excision of mass (10/26/21) S/P trigger finger release History of tooth extraction Hx of hand surgery Hx of esophagogastroduodenoscopy S/P gastric bypass History of hysterectomy Family History Mother Diabetes mellitus CHF (congestive heart failure) Kidney failure Cervical cancer Brother No problems noted. Brother No problems noted. 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 Normal attention. Normal spontaneous speech, fluency, and comprehension. No obvious issues with mood and memory. Affect is appropriate. Cranial Nerves: CN II: Visual tran full to confrontation, visual acuity intact. CN III, IV, : Pupils equal, round, reactive to light and accommodation. Extraocular movements are normal. CN V: Facial sensation is normal. CN VII: Facial movements symmetrical. CN VIII: Hearing intact to bedside conversation is normal. CN IX, X: Palate elevates symmetrically. CN XI: Shoulder shrug and head turn symmetrical. CN XII: Tongue midline without atrophy or fasciculations. Extrapyramidal: Full facial expressions and blinking. No rigidity. Movements are appropriate with no tremor or abnormality. Speech: Normal; no dysarthria or tremor. Assessment & Plan Assessment & Plan (1) Fibromyalgia: Comment: She is already taking multiple pain medicines. Code(s): M79.7 - Fibromyalgia Category: Medical (2) Carpal tunnel syndrome: Comment: She already had surgical decompression last year and was being treated for orthopedic issues Code(s): G56.00 - Carpal tunnel syndrome, unspecified upper limb Category: Medical Qualifiers: Laterality: bilateral Qualified Code(s): G56.03 - Carpal tunnel syndrome, bilateral upper limbs Plan Impression: Chronic pain syndrome Bilateral carpal tunnel syndrome Recommendations: This is a complicated situation with generalized pain syndrome, orthopedic pathologies, and an element of median neuropathy across carpal tunnel with previous history of surgeries. I am not sure if more surgeries an option or would help. Conservative means of treatment is recommended. Coding Level of Care Code Est Pt Level 4 (05125) Diagnoses Fibromyalgia M79.7 Bilateral carpal tunnel syndrome G56.03 Laterality: bilateral
== END 2025-03-14 11:02 | disposition home or self-care (01) ==
LOC: HO.HSM 10:21
PROVIDERS: PCP Student in an Organized Health Care Education/Training Program; Visit Provider Psychiatry & Neurology Neurology
DX: M79.7 Fibromyalgia (principal); G56.03 Carpal tunnel syndrome, bilateral upper limbs
CPT/HCPCS: 99214

== ENCOUNTER → 2025-03-14 10:21 | Outpatient (BNVA) | payer MEDICAID, SELFPAY | PROVIDERS: PCP Student in an Organized Health Care Education/Training Program; Visit Provider Psychiatry & Neurology Neurology | DX: G89.4 Chronic pain syndrome (principal); M79.7 Fibromyalgia; G56.03 Carpal tunnel syndrome, bilateral upper limbs | CPT/HCPCS: 99212 ==

== ENCOUNTER 2025-04-17 12:52 | Outpatient (REF) | payer MEDICAID, SELFPAY ==
--- OUTSIDE RECORDS SUMMARY | 2025-04-16 10:00 | XMS_ITS | Encounter Summary ---
Author Organization [employer] Address [address] [place] [address] Care Team Providers Care Changeover Operator Name Role Phone Joyce Tapia MD Primary Care Provider [phone] Cristal Muhammad PharmD Unavailable [phone] Encounter Details Date Type Department Care Team (Late st Contact Info) Description 04/16/2025 10:00 AM EDT Office Visit [facility] [address] [place] [address] Social History Tobacco Use Types Packs/Day Years Used Date Smoking Tobacco: Every Day Cigarettes Passive Smoke Exposure: Never Smokeless Tobacco: Never Comments:Down to smoking 1 c igarette per day with the use of Chantix Alcohol Use Standard Drinks/Week Comments Never 0 [...] Upcoming Encounters Date Type Department Care Team ([facility] Contact Info) Description 04/23/2025 9:30 AM EDT Office Visit [facility] [address] [place] [address] Ayden Orellana MD [address] [place] [address] 05/06/2025 10:00 AM EST Telemedicine [facility] [address] [place] [address] Cristal Muhammad PharmD [address] [place] [address] 06/04/2025 11:00 AM EST Clinical Support [facility] [address] [place] [address] Katherine Casper, RN [address] [place] [address] documented as of this encounter Visit Diagnoses Not on filedocumented in this encounter Additional Health Concerns Assessment Noted Time PHQ-9 Depression Total Score: 7 09/15/19 25 9:02 AM EDT documented as of this encounter Care Teams Changeover Operator Relationship Specialty Start Date End Date Joyce Tapia MD [address] [place] [address] PCP - General Family Medicine 06/19/12 Cristal Muhammad, BobD [address] [place] [address] [place] [address] Pharmacist Pharmacy 08/07/24 documented as of this encounter
--- NOTE | ~2025-04-17 | XR_ITS ---
EXAMINATION: XR WRIST 3 OR MORE VIEWS RIGHT HISTORY: M25.531 - Pain in right wrist COMPARISON: Correlation is made with plain films of the right hand dated 08/03/2023. FINDINGS: Three views of the right wrist are submitted. Osseous mineralization is normal. Again seen is a well-corticated osseous density adjacent to the ulnar aspect of the distal radius without change. There is no evidence of acute fracture or dislocation. The joint spaces are preserved. The soft tissues are unremarkable. XR/XR wrist RT min 3V IMPRESSION: No evidence of acute fracture of the right wrist. Electronically signed by: Delfino Barone MD 04/17/2025 02:34 PM EDT
--- OUTSIDE RECORDS SUMMARY | 2025-04-17 16:20 | XMS_ITS | Encounter Summary ---
Author Organization [employer] Address [address] [facility] [facility] 7t [place] [address] Care Team Providers Care Distribution Center Manager Name Role Phone Joyce Tapia MD Primary Care Provider [phone] Cristal Muhammad PharmD Unavailable [phone] Reason for Visit * Reason Onset Date Comments Appt 08/09/2024 Encounter Details Date Type Department Care Team ([facility] st Contact Info) Description 08/09/2024 Telephone [facility] MEDICINE [address] [place], [place] [phone] Joyce Tapia MD [address] [place], [place] [phone] Appt Social History Tobacco Use Types Packs/Day [...] can be changed for a phone visit. [phone] documented in this encounter Plan of Treatment Upcoming Encounters Date Type Department Care Team ([facility] st Contact Info) Description 04/23/2025 9:30 AM EDT Office Visit [facility] MED & PEDS [address] [place] [address] Ayden Orellana MD 505 [place] [address] 05/06/2025 10:00 AM EST Telemedicine [facility] MED & PEDS [address] [place] [address] Cristal Muhammad, Deonte 230 [place] [address] 06/04/2025 11:00 AM EST Clinical Support [facility] MED & PEDS [address] [place] [address] Katherine Casper, MAKEDA 505 [place] [address] documented as of this encounter Visit Diagnoses Not on filedocumented in this encounter Care Teams Distribution Center Manager Relationship Specialty Start Date End Date Joyce Tapia MD 230 [place] [address] PCP - General Family Medicine 06/19/12 Cristal Muhammad PharmD [address] [place] [address] Pharmacist Pharmacy 08/07/24 documented as of this encounter
--- OUTSIDE RECORDS SUMMARY | 2025-04-17 16:20 | XMS_ITS ---
Author Organization [employer] Address [address] [place] [address] 7t [place] [address] Care Team Providers Care Epic Prelude Analyst Name Role Phone Joyce Tapia MD Primary Care Provider [phone] Cristal Muhammad PharmD Unavailable [phone] NURSE PRACTITIONER PER DIEM Status:Enrolled (Active) Start date:10/22/2022 Enrollment date:10/22/2022 Case Team Name Relationship Phone Katherine Casper RN(Responsible Staff) Registered Nurse Continued Care and Services Coordination
--- OUTSIDE RECORDS SUMMARY | 2025-04-17 16:20 | XMS_ITS | Encounter Summary ---
Author Organization [employer] Address [address] [facility] 7t [place] [address] Care Team Providers Care Journalists And Other Writers Name Role Phone Joyce Tapia MD Primary Care Provider [phone] Cristal Muhammad PharmD Unavailable [phone] Reason for Visit * Reason Onset Date Comments Referral 03/09/2023 Encounter Details Date Type Department Care Team ([facility] Contact Info) Description 03/09/[address] [facility] MED & PEDS [address] [place] [address] Joyce Tapia MD 505 [place] [address] Referral Social History Tobacco Use Types Packs/Day [...] wait that long. Please contact pt at [phone] documented in this encounter Plan of Treatment Upcoming Encounters Date Type Department Care Team (Late st Contact Info) Description 04/23/2025 9:30 AM EDT Office Visit [facility] MED & PEDS [address] [place] [address] Ayden Orellana MD 505 [place] [address] 05/06/2025 10:00 AM EST Telemedicine [facility] MED & PEDS [address] [place] [address] Cristal Muhammad PharmD 230 [place] [address] 06/04/2025 11:00 AM EST Clinical Support [facility] MED & PEDS [address] [place] [address] Katherine Casper RN 505 [place] [address] documented as of this encounter Visit Diagnoses Not on filedocumented in this encounter Care Teams Journalists And Other Writers Relationship Specialty Start Date End Date Joyce Tapia MD [address] [place] [address] PCP - General Family Medicine 06/19/12 Cristal Muhammad PharmD [address] [place] [address] Pharmacist Pharmacy 08/07/24 documented as of this encounter
--- OUTSIDE RECORDS SUMMARY | 2025-04-17 16:20 | XMS_ITS | Encounter Summary ---
Author Organization [employer] Address [address] [place] [address] 7 [place] [address] Care Team Providers Care Garde Manager Name Role Phone Joyce Tapia MD Primary Care Provider [phone] Cristal Muhammad PharmD Unavailable [phone] Reason for Visit * Reason Comments Med Refill Encounter Details Date Type Department Care Team (Late Contact Info) Description 10/24/2023 Refill [facility] MEDICINE [address] [place], [place] [phone] Joyce Tapia MD 505 [place], [place] [phone] Status post surgical removal of nail matrix [...] Department Care Team (Late Contact Info) Description 04/23/2025 9:30 AM EDT Office Visit [facility] MED & PEDS [address] [place], [place] [phone] Ayden Orellana MD 505 [place], [place] [phone] 05/06/2025 10:00 AM EST Telemedicine [facility] MED & PEDS [address] [place] [address] Cristal Muhammad PharmD 230 [place] [address] 06/04/2025 11:00 AM EST Clinical Support [facility] MED & PEDS [address] [place], [place] [phone] Katherine Casper, RN [address] [place], [place] documented as of this encounter Visit Diagnoses Diagnosis Status post surgical removal of nail matrix of toe of left foot documented in this encounter Care Teams Garde Manager Relationship Specialty Start Date End Date Joyce Tapia MD [address] [place] [address] PCP - General Family Medicine 06/19/12 Cristal Muhammad, BobD [address] [place] [address] Pharmacist Pharmacy 08/07/24 documented as of this encounter
--- OUTSIDE RECORDS SUMMARY | 2025-04-17 16:20 | XMS_ITS | Encounter Summary ---
Author Organization [employer] Address [address] [facility] 7t [place] [address] Care Team Providers Care Management And Budget Analyst Name Role Phone Joyce Tapia MD Primary Care Provider [phone] Cristal Muhammad PharmD Unavailable [phone] Reason for Visit * Reason Onset Date Comments Med Refill 09/11/2024 Encounter Details Date Type Department Care Team ([facility] st Contact Info) Description 09/11/2024 Telephone [facility] MEDICINE [address] [place], [place] [phone] Joyce Tapia MD [address] [place], [place] [phone] Med Refill Social History Tobacco Use Types [...] 9:02 AM EDT Nakul Lloyd MA * Moving or speaking so slowly that other people could have noticed? Or the opposite - being so fidgety or restless that you have been moving around a lot more than usual. Answer Date of Assessment Author Not at all 09/14/2024 9:02 AM EDT Nakul Lloyd MA * Thoughts that you would be better off or hurting yourself in some way Answer Date of Assessment Author Not at all 09/14/2024 9:02 AM Nakul Higuera MA * Patient Health Questionnaire-9 Score Answer Date of Assessment Author 7 09/14/2024 9:02 AM EDT Nakul Lloyd MA * How difficult have these problems [...] To be sent to: [facility]/pharmacy #[id number] NAKUL RYDER - [address] [place] [address] documented in this encounter Plan of Treatment Upcoming Encounters Date Type Department Care Team ([facility] st Contact Info) Description 04/23/2025 9:30 AM EDT Office Visit [facility] MED & PEDS [address] [place] [address] Ayden Orellana MD [address] [place] [address] 05/06/2025 10:00 AM EST Telemedicine [facility] MED & PEDS 505 [place] [address] Cristal Muhammad, Deonte [address] [place] [address] 06/04/2025 11:00 AM EST Clinical Support [facility] MED & PEDS 505 [place] [address] Katherine Casper, RN 505 [place] [address] documented as of this encounter Visit Diagnoses Not on filedocumented in this encounter Care Teams Management And Budget Analyst Relationship Specialty Start Date End Date Joyce Tapia MD [address] [place] [address] PCP - General Family Medicine 06/19/12 Cristal Muhammad, BobD [address] [place] [address] Pharmacist Pharmacy 08/07/24 documented as of this encounter
--- OUTSIDE RECORDS SUMMARY | 2025-04-17 16:20 | XMS_ITS | Encounter Summary ---
Author Organization [employer] Address [address] [facility] 7t [place] [address] Care Team Providers Care Clinical Education Manager Name Role Phone Joyce Tapia MD Primary Care Provider [phone] Cristal Muhammad PharmD Unavailable [phone] Reason for Visit * Reason Onset Date Comments Med Refill 03/02/2025 Encounter Details Date Type Department Care Team ([facility] Contact Info) Description 03/02/2025 Telephone [facility] MED & PEDS [address] [place] [address] Ayden Orellana MD 505 [place] [address] Med Refill Social History Tobacco Use Types [...] Telephone Encounter - Joyce Tapia MD - 03/06/2025 11:25 AM EDT done * Telephone Encounter - Katherine Casper RN - 03/06/2025 9:47 AM EDT TC to pt to advise Oxycodone rx ready for a pickup. Pt asked for a referral to [facility]. documented in this encounter Plan of Treatment Upcoming Encounters Date Type Department Care Team ([facility] st Contact Info) Description 04/23/2025 9:30 AM EDT Office Visit [facility] MED & PEDS [address] [place] [address] Ayden Orellana MD 505 [place] [address] 05/06/2025 10:00 AM EST Telemedicine [facility] MED & PEDS [address] [place] [address] Cristal Muhammad, BobD 230 [place] [address] 06/04/2025 11:00 AM EST Clinical Support [facility] MED & PEDS [address] [place] [address] Katherine Casper, RN 505 [place] [address] documented as of this encounter Visit Diagnoses Diagnosis Status post surgical removal of nail matrix of toe of left foot documented in this encounter Additional Health Concerns Assessment Noted Time PHQ-9 Depression Total Score: 7 09/15/19 9:02 AM EDT documented as of this encounter Care Teams Clinical Education Manager Relationship Specialty Start Date End Date Joyce Tapia MD [address] [place] [address] PCP - General Family Medicine 06/19/12 Cristal Muhammad, PharmD [address] [place] [address] Pharmacist Pharmacy 08/07/24 documented as of this encounter
--- OUTSIDE RECORDS SUMMARY | 2025-04-17 16:20 | XMS_ITS | Encounter Summary ---
Author Organization [employer] Address [address] [facility] 7t [place] [address] Care Team Providers Care Sealer Sander Name Role Phone Joyce Tapia MD Primary Care Provider [phone] Cristal Muhammad PharmD Unavailable [phone] Encounter Details Date Type Department Care Team (Latest Contact Info) Description 03/21/2019 Abstract [facility] Dental, Provider, DDS Social History Tobacco [...] Description 04/23/2025 9:30 AM EDT Office Visit [facility] MED & PEDS [address] [place] [address] Ayden Orellana MD [address] [place] [address] 05/06/2025 10:00 AM EST Telemedicine [facility] MED & PEDS [address] [place] [address] Cristal Muhammad, PharmD 230 [place] [address] 06/04/2025 11:00 AM EST Clinical Support [facility] MED & PEDS [address] [place] [address] Katherine Casper, RN [address] [place] [address] documented as of this encounter Visit Diagnoses Not on filedocumented in this encounter Care Teams Sealer Sander Relationship Specialty Start Date End Date Joyce Tapia MD 230 [place] [address] PCP - General Family Medicine 06/19/12 Cristal Muhammad, BobD [address] [place] [address] Pharmacist Pharmacy 08/07/24 documented as of this encounter
--- OUTSIDE RECORDS SUMMARY | 2025-04-17 16:20 | XMS_ITS | Encounter Summary ---
Author Organization [employer] Address [address] [facility] 7t [place] [address] Care Team Providers Care Kindergarten Instructional Assistant Name Role Phone Joyce Tapia MD Primary Care Provider [phone] Cristal Muhammad PharmD Unavailable Encounter Details Date Type Department Care Team ([facility] st Contact Info) Description 2024 Orders Only [facility] MED & PEDS [address] [place], [place] [phone] Joyce Tapia MD [address] [place] [address] Social History Tobacco Use Types Packs/Day Years [...] Encounters Date Type Department Care Team ([facility] st Contact Info) Description 04/23/2025 9:30 AM EDT Office Visit [facility] MED & PEDS [address] [place] [address] Ayden Orellana MD [address] [place] [address] 05/06/2025 10:00 AM EST Telemedicine [facility] MED & PEDS [address] [place] [address] Cristal Muhammad PharmD [address] [place] [address] 06/04/2025 11:00 AM EST Clinical Support [facility] MED & PEDS [address] [place] [address] Katherine Casper, MAKEDA 505 [place] [address] documented as of this encounter Visit Diagnoses Not on filedocumented in this encounter Additional Health Concerns Assessment Noted Time PHQ-9 Depression Total Score: 7 09/15/19 25 9:02 AM EDT documented as of this encounter Care Teams Kindergarten Instructional Assistant Relationship Specialty Start Date End Date Joyce Tapia MD [address] [place] [address] PCP - General Family Medicine 06/19/12 Cristal Muhammad, Deonte [address] [place] [address] Pharmacist Pharmacy 08/07/24 documented as of this encounter
--- OUTSIDE RECORDS SUMMARY | 2025-04-17 16:20 | XMS_ITS | Encounter Summary ---
Author Organization [employer] Address [address] [facility] 7t [place] [address] Care Team Providers Care Forest Pathology Teacher Name Role Phone Joyce Tapia MD Primary Care Provider [phone] Cristal Muhammad PharmD Unavailable [phone] Reason for Visit * Reason Onset Date Comments Med Refill 03/17/2023 Encounter Details Date Type Department Care Team ([facility] Contact Info) Description 03/17/2023 Telephone [facility] MED & PEDS [address] [place] [address] Joyce Tapia MD [address] [place] [address] Med Refill Social History Tobacco Use Types [...] Description 04/23/2025 9:30 AM EDT Office Visit [facility] MED & PEDS [address] [place] [address] Ayden Orellana MD 505 [place] [address] 05/06/2025 10:00 AM EST Telemedicine [facility] MED & PEDS [address] [place] [address] Cristal Muhammad PharmD 230 [place] [address] 06/04/2025 11:00 AM EST Clinical Support [facility] MED & PEDS [address] [place] [address] Katherine Casper RN 505 [place] [address] documented as of this encounter Visit Diagnoses Not on filedocumented in this encounter Care Teams Forest Pathology Teacher Relationship Specialty Start Date End Date Joyce Tapia MD [address] [place] [address] PCP - General Family Medicine 06/19/12 Cristal Muhammad, Deonte [address] [place] [address] Pharmacist Pharmacy 08/07/24 documented as of this encounter
--- OUTSIDE RECORDS SUMMARY | 2025-04-17 16:20 | XMS_ITS | Encounter Summary ---
Author Organization [employer] Address 75 [facility] 7t [place] [address] Care Team Providers Care Child Care Center Administrator Name Role Phone Joyce Tapia MD Primary Care Provider [phone] Cristal Muhammad PharmD Unavailable [phone] Reason for Visit * Reason Onset Date Comments Med Refill 04/11/2024 Encounter Details Date Type Department Care Team ([facility] Contact Info) Description 04/11/2024 Telephone [facility] & [facility]EDS [address] [place] [address] Joyce Tapia MD 505 [place] [address] Med Refill Social History Tobacco Use Types [...] immediate release tablet To be sent to: [facility] - [place], [place] - [address] [place] [address] documented in this encounter Plan of Treatment Upcoming Encounters Date Type Department Care Team ([facility] st Contact Info) Description 04/23/2025 9:30 AM EDT Office Visit [facility] [address] [place] [address] Ayden Orellana MD 505 [place] [address] 05/06/2025 10:00 AM EST Telemedicine [facility] [address] [place] [address] Cristal Muhammad, PharmD 230 [place] [address] 06/04/2025 11:00 AM EST Clinical Support [facility] MED & PEDS [address] [place] [address] Katherine Casper, MAKEDA 505 [place] [address] documented as of this encounter Visit Diagnoses Not on filedocumented in this encounter Care Teams Child Care Center Administrator Relationship Specialty Start Date End Date Joyce Tapia MD 230 [place] [address] PCP - General Family Medicine 06/19/12 Cristal Muhammad PharmD [address] [place] [address] Pharmacist Pharmacy 08/07/24 documented as of this encounter
--- OUTSIDE RECORDS SUMMARY | 2025-04-17 16:20 | XMS_ITS | Encounter Summary ---
Author Organization [employer] Address 75 [facility] 7t [place] [address] Care Team Providers Care Stamp Presser Name Role Phone Joyce Tapia MD Primary Care Provider [phone] Cristal Muhammad PharmD Unavailable [phone] Reason for Visit * Reason Onset Date Comments Med Refill 04/19/2024 Encounter Details Date Type Department Care Team (Late st Contact Info) Description 04/19/2024 Refill [facility] MEDICINE 230 [place] [address] Joyce Tapia MD [address] [place], [place] [phone] Status post surgical removal of nail matrix [...] Description 04/23/2025 9:30 AM EDT Office Visit [facility] PEDS 505 [place] [address] Ayden Orellana MD 505 [place] [address] 05/06/2025 10:00 AM EST Telemedicine [facility] MED [facility] PEDS [address] [place] [address] Cristal Muhammad PharmD 230 [place] [address] 06/04/2025 11:00 AM EST Clinical Support [facility]EDS 505 [place] [address] Katherine Casper RN 505 [place] [address] documented as of this encounter Visit Diagnoses Diagnosis Status post surgical removal of nail matrix of toe of left foot documented in this encounter Care Teams Stamp Presser Relationship Specialty Start Date End Date Joyce Tapia MD [address] [place] [address] PCP - General Family Medicine 06/19/12 Cristal Muhammad PharmD [address] [place] [address] Pharmacist Pharmacy 08/07/24 documented as of this encounter
--- OUTSIDE RECORDS SUMMARY | 2025-04-17 16:20 | XMS_ITS | Encounter Summary ---
Author Organization [employer] Address 75 [facility] 7t [place] [address] Care Team Providers Care Manager Action Name Role Phone Joyce Tapia MD Primary Care Provider Cristal Muhammad PharmD Unavailable [phone] Reason for Visit * Reason Onset Date Comments Med Refill 04/18/2024 Encounter Details Date Type Department Care Team (Late st Contact Info) Description 04/18/2024 Refill [facility] MEDICINE 230 [place], [place] [phone] Amber Palacio MD 230 [place], [place] [phone] Smoker Social History Tobacco Use Types Packs/Day [...] 9:30 AM EDT Office Visit [facility] MED & PEDS 505 [place] [address] Ayden Orellana MD 505 [place] [address] 05/06/2025 10:00 AM EST Telemedicine [facility] MED & PEDS 505 [place] [address] Cristal Muhammad PharmD 230 [place] [address] 06/04/2025 11:00 AM EST Clinical Support [facility] MED & PEDS 505 [place] [address] Katherine Casper, MAKEDA 505 [place] [address] documented as of this encounter Visit Diagnoses Diagnosis Smoker Tobacco use disorder documented in this encounter Care Teams Manager Action Relationship Specialty Start Date End Date Joyce Tapia MD [address] [place] [address] PCP - General Family Medicine 06/19/12 Cristal Muhammad PharmD [address] [place] [address] Pharmacist Pharmacy 08/07/24 documented as of this encounter
--- OUTSIDE RECORDS SUMMARY | 2025-04-17 16:20 | XMS_ITS | Clinical Summary ---
Author Organization [facility] g Address 175 [place] [address] Phone Care Team Providers Care Public Policy Analyst Name Role Phone Unavailable Primary Care Provider Unavailabl e Social History Tobacco Use Types Packs/Day Years Used Date Smoking Tobacco: Never Assessed Comments Unknown Sex and Gender Information Value Date Recorded Sex Assigned at Not on file Legal Sex Female 4:29 AM EST Gender Identity Not on file Sexual Orientation Not on file Plan of Treatment Upcoming Encounters Date Type Department Care Team ([facility] Contact Info) Description 05/20/2025 8:30 AM EST Consult Orthopedic Surgery - [place] [address] [address] Raymundo Manzo DPM [address] [address] Health Maintenance Due Date Last Done Comments Breast Cancer Screening 1962 Colorectal Cancer Screening: Colonoscopy 1962 Diabetes: Annual GFR (Glomer ular Filtration Rate) 1962 Diabetes: Annual Foot Exam 1972 Diabetes: Annual Retina Eye Exam 1972 DTaP,Tdap,and Td Vaccines (1 - Tdap) 1981 Pneumococcal Vaccine: 50+ Ye ars (1 of 2 - PCV) 1981 Cervical Cancer Screening: P ap Smear 11/16/1983 Zoster Vaccines (1 of 2) 2012 Depression Screening 07/04/2024 COVID-19 Vaccine (1 - 2023-2 5 season) 2025 Influenza Vaccine (#1) 2025 Cholesterol Screening (Lipid Panel) 03/22/2025 Diabetes: Annual Urine Albumin-Creatinine Ratio (uACR) 03/22/2025 Diabetes: Blood Sugar Contro l Test (HGBA1C) 03/22/2025 HIV Screening 03/22/2025 Hepatitis C Screening 03/22/2025 Social Influencers of Health Screening 03/22/2025 RSV Immunization Adult Patie nts (1 - 1-dose 75+ series) 2037 HIB Vaccines Aged Out No longer eligi [...] on patient's age to complete this topic MMR Vaccines Aged Out No longer eligi ble based on patient's age to complete this topic Meningococcal ACWY Vaccine Aged Out N o longer eligible based on patient's age to complete this topic Meningococcal B Vaccine Aged Out No l onger eligible based on patient's age to complete this topic RSV Immunization Patients Un franklin 20 months Aged Out No longer eligible b ased on patient's age to complete this topic Varicella Vaccines Aged Out No longer eligible based on patient's age to complete this topic Insurance MEDICA[place] - [place]
--- OUTSIDE RECORDS SUMMARY | 2025-04-17 16:20 | XMS_ITS | Encounter Summary ---
Author Organization [employer] Address 75 [facility] 7t [place] [address] Care Team Providers Care Mac Artist Name Role Phone Joyce Tapia MD Primary Care Provider [phone] Cristal Muhammad PharmD Unavailable [phone] Reason for Visit * Reason Onset Date Comments Med Refill 05/08/2024 Encounter Details Date Type Department Care Team (Late st Contact Info) Description 05/08/2024 Refill [facility] MEDICINE 230 [place], [place] [phone] Joyce Tapia MD [address] [place], [place] [phone] Muscle spasm Social History Tobacco Use Types [...] 9:30 AM EDT Office Visit [facility] MED & PEDS 505 [place] [address] Ayden Orellana MD 505 [place] [address] 05/06/2025 10:00 AM EST Telemedicine [facility] MED & PEDS 505 [place] [address] Cristal Muhammad PharmD [address] [place] [address] 06/04/2025 11:00 AM EST Clinical Support [facility] MED & PEDS [address] [place] [address] Katherine Casper RN 505 [place] [address] documented as of this encounter Visit Diagnoses Diagnosis Muscle spasm Spasm of muscle documented in this encounter Care Teams Mac Artist Relationship Specialty Start Date End Date Joyce Tapai MD [address] [place] [address] PCP - General Family Medicine 06/19/12 Cristal Muhammad PharmD [address] [place] [address] Pharmacist Pharmacy 08/07/24 documented as of this encounter
--- OUTSIDE RECORDS SUMMARY | 2025-04-17 16:20 | XMS_ITS | Encounter Summary ---
Author Organization [employer] Address 75 [facility] 7t [place] [address] Care Team Providers Care Improvement Coordinator Name Role Phone Joyce Tapia MD Primary Care Provider [phone] Cristal Muhammad PharmD Unavailable [phone] Reason for Visit * Reason Onset Date Comments Med Refill 07/25/2024 Encounter Details Date Type Department Care Team (Late st Contact Info) Description 07/25/2024 Refill [facility] MEDICINE 230 [place] [address] Emerson Keith MD 505 [place], [place] [phone] Status post surgical removal of nail matrix [...] 9:30 AM EDT Office Visit [facility] MED & PEDS 505 [place] [address] Ayden Orellana MD 505 [place] [address] 05/06/2025 10:00 AM EST Telemedicine [facility] MED & PEDS 505 [place] [address] Cristal Muhammad PharmD 230 [place] [address] 06/04/2025 11:00 AM EST Clinical Support [facility] MED & PEDS 505 [place] [address] Katherine Casper, MAKEDA 505 [place] [address] documented as of this encounter Visit Diagnoses Diagnosis Status post surgical removal of nail matrix of toe of left foot documented in this encounter Care Teams Improvement Coordinator Relationship Specialty Start Date End Date Joyce Tapia MD 230 [place] [address] PCP - General Family Medicine 06/19/12 Cristal Muhammad PharmD 230 [place] [address] Pharmacist Pharmacy 08/07/24 documented as of this encounter
--- OUTSIDE RECORDS SUMMARY | 2025-04-17 16:20 | XMS_ITS | Encounter Summary ---
Author Organization [employer] Address 75 [facility] 7t [place] [address] Care Team Providers Care Locomotive Mechanic Name Role Phone Joyce Tapia MD Primary Care Provider [phone] Cristal Muhammad PharmD Unavailable [phone] Reason for Visit * Reason Onset Date Comments Med Refill 07/19/2024 Encounter Details Date Type Department Care Team ([facility] st Contact Info) Description 07/19/2024 Refill [facility] MED & PEDS 505 [place] [address] Joyce Tapia MD 505 [place] [address] Social History Tobacco Use Types Packs/Day Years [...] Description 04/23/2025 9:30 AM EDT Office Visit [facility] MED & PEDS 505 [place] [address] Ayden Orellana MD 505 [place] [address] 05/06/2025 10:00 AM EST Telemedicine [facility] MED & PEDS [address] [place] [address] Cristal Muhammad PharmD 230 [place] [address] 06/04/2025 11:00 AM EST Clinical Support [facility] MED & PEDS 505 [place] [address] Katherine Casper, MAKEDA 505 [place] [address] documented as of this encounter Visit Diagnoses Not on filedocumented in this encounter Care Teams Locomotive Mechanic Relationship Specialty Start Date End Date Joyce Tapia MD [address] [place] [address] PCP - General Family Medicine 06/19/12 Cristal Muhammad PharmD [address] [place] [address] Pharmacist Pharmacy 08/07/24 documented as of this encounter
--- OUTSIDE RECORDS SUMMARY | 2025-04-17 16:20 | XMS_ITS | Encounter Summary ---
Author Organization [employer] Address [address] [place] [address] 7 [place] [address] Care Team Providers Care Molding Process Technician Name Role Phone Joyce Tapia MD Primary Care Provider [phone] Cristal Muhammad PharmD Unavailable [phone] Reason for Visit * Reason Comments Med Refill Encounter Details Date Type Department Care Team (Late Contact Info) Description 11/04/2023 Refill [facility] MED & PEDS [address] [place] [address] Joyce Tapia MD 505 [place] [address] Status post surgical removal of nail matrix [...] Upcoming Encounters Date Type Department Care Team ([facility] Contact Info) Description 04/23/2025 9:30 AM EDT Office Visit [facility] MED & PEDS 505 [place] [address] Ayden Orellana MD 505 [place], [place] [phone] 05/06/2025 10:00 AM EST Telemedicine [facility] MED & PEDS 505 [place] [address] Cristal Muhammad PharmD 230 [place] [address] 06/04/2025 11:00 AM EST Clinical Support [facility] MED & PEDS 505 [place] [address] Katherine Casper, MAKEDA 505 [place] [address] documented as of this encounter Visit Diagnoses Diagnosis Status post surgical removal of nail matrix of toe of left foot documented in this encounter Care Teams Molding Process Technician Relationship Specialty Start Date End Date Joyce Tapia MD 230 [place] [address] PCP - General Family Medicine 06/19/12 Cristal Muhammad, Deonte [address] [place] [address] Pharmacist Pharmacy 08/07/24 documented as of this encounter
--- OUTSIDE RECORDS SUMMARY | 2025-04-17 16:20 | XMS_ITS | Encounter Summary ---
Author Organization [employer] Address 75 [facility] 7t [place] [address] Care Team Providers Care Sill Worker Name Role Phone Joyce Tapia MD Primary Care Provider [phone] Cristal Muhammad PharmD Unavailable [phone] Reason for Visit * Reason Onset Date Comments Med Refill 07/13/2024 Encounter Details Date Type Department Care Team ([facility] st Contact Info) Description 07/13/2024 Refill [facility] MED & PEDS 505 [place] [address] Joyce Tapia MD 505 [place] [address] Social History Tobacco Use Types Packs/Day Years [...] Description 04/23/2025 9:30 AM EDT Office Visit [facility] MED & PEDS 505 [place] [address] Ayden Orellana MD 505 [place] [address] 05/06/2025 10:00 AM EST Telemedicine [facility] MED & PEDS 505 [place] [address] Cristal Muhammad PharmD 230 [place] [address] 06/04/2025 11:00 AM EST Clinical Support [facility] MED & PEDS 505 [place] [address] Katherine Casper, MAKEDA 505 [place] [address] documented as of this encounter Visit Diagnoses Not on filedocumented in this encounter Care Teams Sill Worker Relationship Specialty Start Date End Date Joyce Tapia MD [address] [place] [address] PCP - General Family Medicine 06/19/12 Cristal Muhammad PharmD [address] [place] [address] Pharmacist Pharmacy 08/07/24 documented as of this encounter
--- OUTSIDE RECORDS SUMMARY | 2025-04-17 16:20 | XMS_ITS | Encounter Summary ---
Author Organization [employer] Address 75 [facility] 7t [place] [address] Care Team Providers Care Dry House Wheeler Name Role Phone Joyce Tapia MD Primary Care Provider [phone] Cristal Muhammad PharmD Unavailable [phone] Reason for Visit * Reason Onset Date Comments Med Refill 04/08/2025 Encounter Details Date Type Department Care Team ([facility] st Contact Info) Description 04/08/2025 Refill [facility] MED & PEDS 505 [place] [address] Ayden Orellana MD 505 [place] [address] Status post surgical removal of nail matrix [...] Description 04/23/2025 9:30 AM EDT Office Visit [facility] MED & PEDS [address] [place] [address] Ayden Orellana MD 505 [place] [address] 05/06/2025 10:00 AM EST Telemedicine [facility] MED & PEDS 505 [place] [address] Cristal Muhammad, BobD 230 [place] [address] 06/04/2025 11:00 AM EST Clinical Support [facility] MED & PEDS [address] [place] [address] Katherine Casper, RN 505 [place] [address] documented as of this encounter Visit Diagnoses Diagnosis Status post surgical removal of nail matrix of toe of left foot documented in this encounter Additional Health Concerns Assessment Noted Time PHQ-9 Depression Total Score: 7 09/15/19 9:02 AM EDT documented as of this encounter Care Teams Dry House Wheeler Relationship Specialty Start Date End Date Joyce Tapia MD 230 [place] [address] PCP - General Family Medicine 06/19/12 Cristal Muhammad PharmD 230 [place] [address] Pharmacist Pharmacy 08/07/24 documented as of this encounter
--- OUTSIDE RECORDS SUMMARY | 2025-04-17 16:20 | XMS_ITS | Encounter Summary ---
Author Organization [employer] Address 75 [facility] 7t [place] [address] Care Team Providers Care Bat Lathe Operator Name Role Phone Joyce Tapia MD Primary Care Provider [phone] Cristal Muhammad PharmD Unavailable [phone] Reason for Visit * Reason Onset Date Comments Med Refill 07/12/2024 Encounter Details Date Type Department Care Team ([facility] st Contact Info) Description 07/12/2024 Refill [facility] MED & PEDS 505 [place] [address] Joyce Tapia MD 505 [place] [address] Status post surgical removal of nail matrix [...] [facility] 505 [place] [address] Ayden Orellana MD 505 [place] [address] 05/06/2025 10:00 AM EST Telemedicine [facility] MED & PEDS 505 [place] [address] Cristal Muhammad PharmD 230 [place] [address] 06/04/2025 11:00 AM EST Clinical Support [facility] MED & PEDS 505 [place] [address] Katherine Casper, MAKEDA 505 [place] [address] documented as of this encounter Visit Diagnoses Diagnosis Status post surgical removal of nail matrix of toe of left foot documented in this encounter Care Teams Bat Lathe Operator Relationship Specialty Start Date End Date Joyce Tapia MD 230 [place] [address] PCP - General Family Medicine 06/19/12 Cristal Muhammad PharmD 230 [place] [address] Pharmacist Pharmacy 08/07/24 documented as of this encounter
--- OUTSIDE RECORDS SUMMARY | 2025-04-17 16:20 | XMS_ITS | Encounter Summary ---
Author Organization [employer] Address 75 [facility] 7t [place] [address] Care Team Providers Care Manager Drug Safety Name Role Phone Joyce Tapia MD Primary Care Provider [phone] Cristal Muhammad PharmD Unavailable [phone] Reason for Visit * Reason Onset Date Comments Med Refill 04/17/2025 Encounter Details Date Type Department Care Team ([facility] st Contact Info) Description 04/17/2025 Refill [facility] MED & PEDS 505 [place] [address] Joyce Tapia MD 505 [place] [address] Status post surgical removal of nail matrix [...] Description 04/23/2025 9:30 AM EDT Office Visit [facility] MED & PEDS 505 [place] [address] Ayden Orellana MD 505 [place] [address] 05/06/2025 10:00 AM EST Telemedicine [facility] MED & PEDS 505 [place] [address] Cristal Muhammad, BobD 230 [place] [address] 06/04/2025 11:00 AM EST Clinical Support [facility] MED & PEDS 505 [place] [address] Katherine Casper, MAKEDA 505 [place] [address] documented as of this encounter Visit Diagnoses Diagnosis Status post surgical removal of nail matrix of toe of left foot documented in this encounter Additional Health Concerns Assessment Noted Time PHQ-9 Depression Total Score: 7 09/15/19 25 9:02 AM EDT documented as of this encounter Care Teams Manager Drug Safety Relationship Specialty Start Date End Date Joyce Tapia MD 230 [place] [address] PCP - General Family Medicine 06/19/12 Cristal Muhammad PharmD 230 [place] [address] Pharmacist Pharmacy 08/07/24 documented as of this encounter
--- OUTSIDE RECORDS SUMMARY | 2025-04-17 16:20 | XMS_ITS | Encounter Summary ---
Author Organization [employer] Address 75 [facility] 7t [place] [address] Care Team Providers Care Concrete Finishing Machine Operator Name Role Phone Joyce Tapia MD Primary Care Provider [phone] Cristal Muhammad PharmD Unavailable [phone] Reason for Visit * Reason Onset Date Comments Med Refill 07/13/2024 Encounter Details Date Type Department Care Team (Late st Contact Info) Description 07/13/2024 Refill [facility] MEDICINE 230 [place], [place] [phone] Amber Palacio MD 230 [place], [place] [phone] Smoker Social History Tobacco Use Types Packs/Day [...] 9:30 AM EDT Office Visit [facility] MED & PEDS 505 [place] [address] Ayden Orellana MD 505 [place] [address] 05/06/2025 10:00 AM EST Telemedicine [facility] MED & PEDS 505 [place] [address] Cristal Muhammad PharmD 230 [place] [address] 06/04/2025 11:00 AM EST Clinical Support [facility] MED & PEDS 505 [place] [address] Katherine Casper, MAKEDA 505 [place] [address] documented as of this encounter Visit Diagnoses Diagnosis Smoker Tobacco use disorder documented in this encounter Care Teams Concrete Finishing Machine Operator Relationship Specialty Start Date End Date Joyce Tapia MD [address] [place] [address] PCP - General Family Medicine 06/19/12 Cristal Muhammad PharmD [address] [place] [address] Pharmacist Pharmacy 08/07/24 documented as of this encounter
--- OUTSIDE RECORDS SUMMARY | 2025-04-17 16:20 | XMS_ITS | Encounter Summary ---
Author Organization [employer] Address 75 [facility] 7t [place] [address] Care Team Providers Care Mold Cleaning And Storage Supervisor Name Role Phone Joyce Tapia MD Primary Care Provider [phone] Cristal Muhammad PharmD Unavailable [phone] Reason for Visit * Reason Onset Date Comments Med Refill 10/24/2023 Encounter Details Date Type Department Care Team ([facility] st Contact Info) Description 10/24/2023 Telephone [facility] MEDICINE 230 [place], [place] [phone] Joyce Tapia MD [address] [place], [place] [phone] Med Refill Social History Tobacco Use Types [...] immediate release tablet To be sent to: [facility] - [place], [place] - [address] [facility] documented in this encounter Plan of Treatment Upcoming Encounters Date Type Department Care Team (Late st Contact Info) Description 04/23/2025 9:30 AM EDT Office Visit [facility] MED & PEDS 505 [place] [address] Ayden Orellana MD 505 [place] [address] 05/06/2025 10:00 AM EST Telemedicine [facility] MED & PEDS 505 [place] [address] Cristal Muhammad PharmD 230 [place] [address] 06/04/2025 11:00 AM EST Clinical Support [facility] MED & PEDS 505 [place] [address] Katherine Casper RN 505 [place] [address] documented as of this encounter Visit Diagnoses Not on filedocumented in this encounter Care Teams Mold Cleaning And Storage Supervisor Relationship Specialty Start Date End Date Joyce Tapia MD [address] [place] [address] PCP - General Family Medicine 06/19/12 Cristal Muhammad, Deonte [address] [place] [address] Pharmacist Pharmacy 08/07/24 documented as of this encounter
--- OUTSIDE RECORDS SUMMARY | 2025-04-17 16:20 | XMS_ITS | Encounter Summary ---
Author Organization [employer] Address [address] [facility] 7t [place] [address] Care Team Providers Care Medication Reconciliation Technician Name Role Phone Joyce Tapia MD Primary Care Provider [phone] Cristal Muhammad PharmD Unavailable [phone] Reason for Visit * Reason Onset Date Comments Med Refill 09/24/2024 Encounter Details Date Type Department Care Team ([facility] st Contact Info) Description 09/24/2024 Refill [facility] [address] [place] [address] Joyce Tapia MD [address] [place] [address] Status post surgical removal of nail matrix [...] 9:30 AM EDT Office Visit [facility] [address] [place] [address] Ayden Orellana MD [address] [place] [address] 05/06/2025 10:00 AM EST Telemedicine [facility] [address] [place] [address] Cristal Muhammad, PharmD [address] [place] [address] 06/04/2025 11:00 AM EST Clinical Support [facility] [address] [place] [address] Katherine Casper, MAKEDA [address] [place] [address] documented as of this encounter Visit Diagnoses Diagnosis Status post surgical removal of nail matrix of toe of left foot documented in this encounter Additional Health Concerns Assessment Noted Time PHQ-9 Depression Total Score: 7 09/15/19 9:02 AM EDT documented as of this encounter Care Teams Medication Reconciliation Technician Relationship Specialty Start Date End Date Joyce Tapia MD [address] [place] [address] PCP - General Family Medicine 06/19/12 Cristal Muhammad PharmD [address] [place] [address] Pharmacist Pharmacy 08/07/24 documented as of this encounter
--- OUTSIDE RECORDS SUMMARY | 2025-04-17 16:20 | XMS_ITS | Encounter Summary ---
Author Organization [employer] Address [address] [facility] 7t [place] [address] Care Team Providers Care Clinical Mental Health Counselor Name Role Phone Joyce Tapia MD Primary Care Provider [phone] Cristal Muhammad PharmD Unavailable [phone] Reason for Visit * Reason Onset Date Comments Med Refill 04/25/2024 Encounter Details Date Type Department Care Team ([facility] st Contact Info) Description 04/25/2024 Telephone [facility] [address] [place], [place] [phone] Joyce Tapia MD [address] [place], [place] [phone] Med Refill Social History Tobacco Use Types [...] (Roxicodone) 5 MG To be sent to: [facility] documented in this encounter Plan of Treatment Upcoming Encounters Date Type Department Care Team (Late st Contact Info) Description 04/23/2025 9:30 AM EDT Office Visit [facility] [address] [place] [address] Ayden Orellana MD [address] [place] [address] 05/06/2025 10:00 AM EST Telemedicine [facility] [address] [place] [address] Cristal Muhammad, PharmD [address] [place] [address] 06/04/2025 11:00 AM EST Clinical Support [facility] [address] [place] [address] Katherine Casper, MAKEDA [address] [place] [address] documented as of this encounter Visit Diagnoses Not on filedocumented in this encounter Care Teams Clinical Mental Health Counselor Relationship Specialty Start Date End Date Joyce Tapia MD [address] [place] [address] PCP - General Family Medicine 06/19/12 Cristal Muhammad PharmD [address] [place] [address] Pharmacist Pharmacy 08/07/24 documented as of this encounter
--- OUTSIDE RECORDS SUMMARY | 2025-04-17 16:20 | XMS_ITS | Encounter Summary ---
Author Organization [employer] Address [address] [facility] 7t [place] [address] Care Team Providers Care Machine Milker Name Role Phone Joyce Tapia MD Primary Care Provider [phone] Cristal Muhammad PharmD Unavailable [phone] Reason for Visit * Reason Comments Med Refill Encounter Details Date Type Department Care Team ([facility] Contact Info) Description 04/12/2024 Refill [facility] [address] [place], [place] [phone] Joyce Tapia MD [address] [place] [address] Status post surgical removal of nail matrix [...] 04/23/2025 9:30 AM EDT Office Visit [facility] [address] [place] [address] Ayden Orellana MD [address] [place] [address] 05/06/2025 10:00 AM EST Telemedicine [facility] [address] [place] [address] Cristal Muhammad PharmD [address] [place] [phone] 06/04/2025 11:00 AM EST Clinical Support [facility] [address] [place] [address] Katherine Casper, MAKEDA [address] [place] [address] documented as of this encounter Visit Diagnoses Diagnosis Status post surgical removal of nail matrix of toe of left foot documented in this encounter Care Teams Machine Milker Relationship Specialty Start Date End Date Joyce Tapia MD [address] [place] [address] PCP - General Family Medicine 06/19/12 Cristal Muhammad PharmD [address] [place] [phone] Pharmacist Pharmacy 08/07/24 documented as of this encounter
--- OUTSIDE RECORDS SUMMARY | 2025-04-17 16:20 | XMS_ITS | Encounter Summary ---
Author Organization [employer] Address [address] [facility] 7t [place] [address] Care Team Providers Care Paper Products Machine Operator Name Role Phone Joyce Tapia MD Primary Care Provider [phone] Cristal Muhammad PharmD Unavailable [phone] Reason for Visit * Reason Onset Date Comments Med Refill 04/14/2025 Encounter Details Date Type Department Care Team ([facility] st Contact Info) Description 04/14/2025 Refill [facility] [address] [place] [address] Joyce Tapia MD [address] [place] [address] Status post surgical removal of nail matrix [facility] [address] [place] [address] Ayden Orellana MD [address] [place] [address] 05/06/2025 10:00 AM EST Telemedicine [facility] [address] [place] [address] Cristal Muhammad, BobD [address] [place] [address] 06/04/2025 11:00 AM EST Clinical Support [facility] [address] [place] [address] Katherine Casper, MAKEDA [address] [place] [address] documented as of this encounter Visit Diagnoses Diagnosis Status post surgical removal of nail matrix of toe of left foot documented in this encounter Additional Health Concerns Assessment Noted Time PHQ-9 Depression Total Score: 7 09/15/19 25 9:02 AM EDT documented as of this encounter Care Teams Paper Products Machine Operator Relationship Specialty Start Date End Date Joyce Tapia MD [address] [place] [address] PCP - General Family Medicine 06/19/12 Cristal Muhammad PharmD [address] [place] [address] Pharmacist Pharmacy 08/07/24 documented as of this encounter
--- OUTSIDE RECORDS SUMMARY | 2025-04-17 16:20 | XMS_ITS | Encounter Summary ---
Author Organization [employer] Address [address] [facility] [address] 7[address] [place] [address] Care Team Providers Care Director Client Services Name Role Phone Joyce Tapia MD Primary Care Provider [phone] Cristal Muhammad PharmD Unavailable [phone] Encounter Details Date Type Department Care Team (Latest Contact Info) Description 04/16/2025 Travel Social History Tobacco Use Types Packs/Day [...] 9:30 AM EDT Office Visit [facility] [address] [place] [address] Ayden Orellana MD [address] [place] [address] 05/06/2025 10:00 AM EST Telemedicine [facility] [address] [place] [address] Cristal Muhammad PharmD [address] [place] [address] 06/04/2025 11:00 AM EST Clinical Support [facility] [address] [place] [address] Katherine Casper, RN [address] [place] [address] documented as of this encounter Visit Diagnoses Not on filedocumented in this encounter Additional Health Concerns Assessment Noted Time PHQ-9 Depression Total Score: 7 09/15/19 25 9:02 AM EDT documented as of this encounter Care Teams Director Client Services Relationship Specialty Start Date End Date Joyce Tapia MD [address] [place] [address] PCP - General Family Medicine 06/19/12 Cristal Muhammad, PharmD [address] [place] [address] Pharmacist Pharmacy 08/07/24 documented as of this encounter
--- OUTSIDE RECORDS SUMMARY | 2025-04-17 16:20 | XMS_ITS | Clinical Summary ---
Author Organization [employer] Address [address] [facility] [address] [place] [address] Care Team Providers Care Building Services Technician Name Role Phone Joyce Tapia MD Primary Care Provider Cristal Muhammad PharmD Unavailable [phone] Allergies Active Allergy Reactions Criticality Noted Date [...] out of bed 1 each 023 Active triamcinolone (Kenalog) 0.1 % creamIndication [...] times daily. Active Blood Glucose Monitoring Suppl (EndoLumix Technology Lite) w/Device kit Test blood sugar as directed 1 kit Active Blood Pressure kit Check blood pressure daily 1 kit Active atorvastatin (Lipitor) 40 MG tablet Take 1 tablet (40 mg) by mouth Once per day. 90 tablet 3 Active glucagon (Baqsimi Two Pack) 3 MG/DOSE nasal powder Administer 3 mg into affected nostril(s) 1 (one) time if needed for low blood sugar. 1 each 11 Active varenicline (Chantix) 1 MG tablet Take 1/2 tablet by mouth daily for 3 days, then 1/2 tablet twice daily for 4 days, then 1 tablet twice daily thereafter. Take with a full glass of water. 60 tablet 2 Active cyanocobalamin (Vitamin B-12) 1000 MCG tablet TAKE ONE TABLET EVERY MORNING 90 tablet 1 025 Active pramipexole (Mirapex) 0.5 MG tablet TAKE ONE TABLET THREE TIMES DAILY IN THE MORNING, EVENING AND BEDTIME 90 tablet 11 Active furosemide (Lasix) 20 MG tablet Take 0.5 tablets (10 mg) by mouth Once per day. 15 tablet 025 2025 Active empagliflozin (Jardiance) 25 MGIndications:T ype 2 diabetes mellitus without complication, without long-term current use of insulin (HCC) Take 1 tablet (25 mg) by mouth Once per day. 30 tablet 5 025 Active Continuous Glucose Sensor (FreeStyle Gwendolyn 3 Plus Sensor) [facility] 1 each every 15 days. 2 each Active clotrimazole (Lotrimin) 1 % vaginal creamIndication s:Vulvovaginal Candidiasis Insert one applicator per vagina at bedtime for 7 nights 45 g Active tiZANidine (Zanaflex) 4 MG tabletIndicatio ns:Muscle spasm TAKE ONE TABLET EVERY EVENING 30 tablet 3 Active naloxone (Narcan) 4 mg/0.1 mL nasal spray Administer 1 spray (4 mg) into affected nostril(s) if needed for opioid reversal. May repeat every 2-3 minutes if needed, alternating nostrils, until medical assistance becomes available. 2 each 2025 Active oxyCODONE (Roxicodone) 5 MG immediate release tabletIndicatio ns:Status post surgical removal of nail matrix of toe of left foot TAKE ONE TABLET EVERY 6 HOURS NEEDED FOR SEVERE PAIN 30 tablet Active Ferrous Sulfate (iron) 325 (65 Fe) MG tablet TAKE ONE TABLET EVERY MORNING 90 tablet 1 Active sertraline (Zoloft) 100 MG tablet TAKE ONE TABLET EVERY NIGHT AT BEDTIME 30 tablet 6 Active minocycline 100 MG capsuleIndicati ons:Hidradeniti s suppurativa Take 1 capsule (100 mg) by mouth 2 times daily. 60 capsule 1 2024 Active albuterol (2.5 MG/3ML) 0.083% nebulizer solutionIndicat ions:Mild intermittent asthma with exacerbation TAKE 3 ML BY NEBULIZATION ROUTE EVERY 6 HOURS NEEDED FOR WHEEZING 75 mL 2 Active albuterol 108 (90 Base) MCG/ACT inhalerIndicati ons:Wheezing INHALE 2 PUFFS BY MOUTH EVERY 4 HOURS NEEDED FOR WHEEZING 18 g 2 Active meclizine (Antivert) 25 MG tablet TAKE 1 TABLET BY MOUTH TWICE A DAY 60 tablet 3 Active zolpidem (Ambien) 5 MG tablet TAKE ONE TABLET EVERY NIGHT AT BEDTIME NEEDED FOR SLEEP 30 tablet Active lidocaine (Lidoderm) 5 % patchIndication s:Pain APPLY 1 PATCH TOPICALLY EVER DAY. REMOVE AND DISCARD PATCH WITHIN 12 HOURS OR DIRECTED BY MD. 30 patch Active linaGLIPtin (Tradjenta) 5 MG tabletIndicatio ns:Type 2 diabetes mellitus without complication, without long-term current use of insulin (HCC) Take 1 tablet (5 mg) by mouth Once per day. 90 tablet 1 Active gabapentin (Neurontin) 100 MG capsule TAKE 1 CAPSULE BY MOUTH TWICE A DAY 60 capsule Active oxyCODONE (Roxicodone) 5 MG immediate release tabletIndicatio ns:Status post surgical removal of nail matrix of toe of left foot Take 1 tablet (5 mg) by mouth every 6 (six) hours if needed for severe pain for up to 14 days. 56 tablet 025 2024 Active FREESTYLE LITE test stripIndication s:Type 2 diabetes mellitus without complication, without long-term current use of insulin ([facility]) USE TO TEST BLOOD SUGAR THREE TIMES A DAY 100 strip 5 Active Easy Touch Lancets 33G/Twist miscIndications :Type 2 diabetes mellitus without complication, without long-term current use of insulin ([facility]) USE TO TEST BLOOD SUGAR THREE TIMES A DAY 100 each 5 Active albuterol 108 (90 Base) MCG/ACT inhalerIndicati ons:Wheezing Inhale 2 puffs every 4 (four) hours if needed for wheezing. 18 g 023 2024 Discontinued(R eorder (will not trigger notification to Pharmacy)) albuterol (2.5 MG/3ML) 0.083% nebulizer solutionIndicat ions:Mild intermittent asthma with exacerbation Take 3 mL (2.5 mg) by nebulization every 6 (six) hours if needed for wheezing. 75 mL 2 023 2024 Discontinued(R eorder (will not trigger notification to Pharmacy)) meclizine (Antivert) 25 MG tablet 1 tab po BID 60 tablet 3 025 2024 Discontinued(R eorder (will not trigger notification to Pharmacy)) Lancets 33G miscIndications :Type 2 diabetes mellitus without complication, without long-term current use of insulin ([facility]) USE TO TEST BLOOD SUGAR THREE TIMES A DAY 100 each 3 025 2024 Discontinued glucose blood (FREESTYLE LITE) test stripIndication s:Type 2 diabetes mellitus without complication, without long-term current use of insulin (HCC) USE TO TEST BLOOD SUGAR THREE TIMES A DAY 100 each 3 025 2024 Discontinued lidocaine (Lidoderm) 5 % patchIndication s:Pain APPLY 1 PATCH TOPICALLY EVER DAY. REMOVE AND DISCARD PATCH WITHIN 12 HOURS OR DIRECTED BY MD. 30 patch 025 2024 Discontinued(R eorder (will not trigger notification to Pharmacy)) zolpidem (Ambien) 5 MG tablet TAKE ONE TABLET EVERY NIGHT AT BEDTIME NEEDED FOR SLEEP 30 tablet 025 2024 Discontinued(R eorder (will not trigger notification to Pharmacy)) gabapentin (Neurontin) 100 MG capsule TAKE 1 CAPSULE BY MOUTH TWICE A DAY 60 capsule 2024 Discontinued oxyCODONE (Roxicodone) 5 MG immediate release tabletIndicatio ns:Status post surgical removal of nail matrix of toe of left foot Take 1 tablet (5 mg) by mouth every 6 (six) hours if needed for severe pain. Do not start before March 19, 2025. 30 tablet 025 2024 Discontinued(R eorder (will not trigger notification to Pharmacy)) oxyCODONE (Roxicodone) 5 MG immediate release tabletIndicatio ns:Status post surgical removal of nail matrix of toe of left foot Take 1 tablet (5 mg) by mouth every 6 (six) hours if needed for severe pain. Do not start before March 26, 2025. 30 tablet 025 2024 Discontinued(R eorder (will not trigger notification to Pharmacy)) oxyCODONE (Roxicodone) 5 MG immediate release tabletIndicatio ns:Status post surgical removal of nail matrix of toe of left foot Take 1 tablet (5 mg) by mouth every 6 (six) hours if needed for severe pain. Do not start before April 02, 2025. 30 tablet 025 2024 Discontinued(R eorder (will not trigger notification to Pharmacy)) Active Problems Problem Noted Date Diagnosed Date Hidradenitis suppurativa 03/19/2025 Dizziness 12/25/2024 Bilateral lower extremity edema 12/25/2024 [...] Indication: fibromyalgia, neuropathic pain right hand Last MEDICAL SCIENTIST Agreement: 11/14/24 Tier: 3 (MEDICAL SCIENTIST visits Q4-6 months) GERD (gastroesophageal reflux disease) [...] Recommendations brianna Adler will reach out to [facility] and[facility] if further supports needed Status [...] Resolved Date Sore throat (viral) 12/02/2023 10/21/19 Assessment & Plan (12/02/2023 3:27 PM EDT): Rest drink plenty of fluids Acetaminophen PRN Upper respiratory tract infection 10/24/2023 09/14/2024 Assessment & Plan (10/24/2023 9:05 PM EDT): Negative for COVID and FLU. Begin medications and if symptoms worsen f/u. Relevant medications Azithromycin (Zithromax) 250 MG Tablet Prednisone (Deltasone) 20 MG Tablet Candidiasis 09/28/2011 10/20/2024 Encounters Date Type Department Care Team Description 04/17/2025 Refill [facility] [address] [place] [address] Joyce Tapia MD Status post surgical removal of nail matrix of toe of left foot 04/16/2025 10:00 AM EDT Office Visit [facility] [address] [place] [address] 04/16/2025 Travel 04/15/2025 Travel 04/14/2025 Refill [facility] [address] [place] [address] Joyce Tapia MD Status post surgical removal of nail matrix of toe of left foot 04/12/2025 Refill [facility] [address] [place] [address] Joyce Tapia MD Type 2 diabetes mellitus without complication, without long-term current use of insulin ([facility]) 04/08/2025 Refill [facility] [address] [place] [address] Ayden Orellana MD Status post surgical removal of nail matrix of toe of left foot 04/07/2025 Refill [facility] [address] [place] [address] Joyce Tapia MD Status post surgical removal of nail matrix of toe of left foot 04/07/2025 Refill [facility] [address] [place] [address] Joyce Tapia MD 04/04/2025 Travel 04/03/2025 Travel 03/31/2025 Refill [facility] [address] [place] [address] Ayden Orellana MD Status post surgical removal of nail matrix of toe of left foot 03/27/2025 Refill [facility] [address] [place] [address] Joyce Tapia MD Pain 03/24/2025 Refill [facility] [address] [place] [address] Ayden Orellana MD Wheezing 03/24/2025 Refill [facility] [address] [place] [address] Joyce Tapia MD Pain; Status post surgical removal of nail matrix of toe of left foot 03/24/2025 Refill [facility] [address] [place] [address] Juan Montanez MD Mild intermittent asthma with exacerbation; Wheezing; Pain 03/19/2025 10:30 AM EDT Office Visit [facility] [address] [place] [address] Ayden Orellana MD Hidradenitis suppurativa (Primary Dx) 03/19/2025 Travel 03/18/2025 Travel 03/17/2025 Refill [facility] [address] [place] [address] Joyce Tapia MD Status post surgical removal of nail matrix of toe of left foot 03/15/2025 Refill [facility] [address] [place] [address] Joyce Tapia MD 03/11/2025 11:30 AM EDT Telemedicine [facility] [address] [place] [address] Joyce Tapia MD Bone spur of left foot (Primary Dx); Type 2 diabetes mellitus without complication, without long-term current use of insulin ([facility]); Fibromyalgia 03/11/2025 Travel 03/10/2025 Travel 03/10/2025 Refill [facility] [address] [place] [address] Joyce Tapia MD Status post surgical removal of nail matrix of toe of left foot 03/09/2025 Refill [facility] [address] [place] [address] Joyce Tapia MD 03/08/2025 Telephone [facility] [address] [place] [address] Joyce Tapia MD Chart Prep 03/06/2025 Orders Only [facility] [address] [place] [address] Joyce Tapia MD Type 2 diabetes mellitus without complication, without long-term current use of insulin ([facility]) (Primary Dx) 03/05/2025 Refill [facility] [address] [place] [address] Ayden Orellana MD Status post surgical removal of nail matrix of toe of left foot 03/05/2025 Patient Outreach [facility] [address] [place] [phone] Joyce Tapia MD 03/04/2025 Refill [facility] [address] [place] [address] Ayden Orellana MD Status post surgical removal of nail matrix of toe of left foot 03/04/2025 Orders Only GENERIC EXTERNAL DATA DEPARTMENT Provider, Generic External Data 03/04/2025 Refill [facility] [address] [place] [address] Ayden Orellana MD 03/02/2025 Telephone [facility] [address] [place] [address] Ayden Orellana MD Med Refill 03/01/2025 Orders Only GENERIC EXTERNAL DATA DEPARTMENT Provider, Generic External Data 02/26/2025 Telephone [facility] [address] [place] [phone] Myra Connors MD Referral-OBGYN 02/25/2025 Refill [facility] [address] [place] [address] Ayden Orellana MD Status post surgical removal of nail matrix of toe of left foot 02/23/2025 Refill [facility] [address] [place] [address] Ayden Orellana MD Status post surgical removal of nail matrix of toe of left foot 02/22/2025 Refill [facility] [address] [place] [address] Joyce Tapia MD 02/22/2025 Travel 02/19/2025 1:00 PM EDT Clinical Support [facility] [address] [place] [address] Katherine Casper, marketing communications associate bilateral low back pain with left-sided sciatica 02/19/2025 Refill [facility] [address] [place], [place] [phone] Katherine Casper RN 02/19/2025 Travel 02/17/2025 Refill [facility] [address] [place], [place] [phone] Emerson Keith MD Status post surgical removal of nail matrix of toe of left foot 02/11/2025 Refill [facility] [address] [place] [address] Joyce Tapia MD Muscle spasm 02/10/2025 Refill [facility] [address] [place] [address] Jenny Schmidt MD Status post surgical removal of nail matrix of toe of left foot 02/10/2025 Refill [facility] [address] [place] [phone] Myar Connors MD Candidiasis 02/05/2025 Refill [facility] [address] [place] [address] Joyce Tapia MD 02/04/2025 Telephone [facility] [address] [place] [phone] Nelli Mancuso MD nurse status check 02/04/2025 Telephone [facility] [address] [place] [address] Joyce Tapia MD Med Refill 02/03/2025 Refill [facility] [address] [place] [address] Joyce Tapia MD Status post surgical removal of nail matrix of toe of left foot 02/02/2025 12:00 PM EDT Office Visit [facility] [address] [place] [phone] Nelli Mancuso MD Swelling of finger of right hand (Primary Dx); Dietary counseling; Exercise counseling; Overweight 02/02/2025 Travel 01/31/2025 Orders Only GENERIC EXTERNAL DATA DEPARTMENT Provider, Generic External Data 01/27/2025 Refill [facility] [address] [place] [address] Joyce Tapia MD Status post surgical removal of nail matrix of toe of left foot 01/26/2025 9:40 AM EDT Office Visit [facility] [address] [place] [phone] Myra Connors MD Vulvar lesion (Primary Dx); Candidiasis; Vulvar irritation 01/26/2025 Orders Only [facility] [address] [place] [phone] Myra Connors MD 01/26/2025 Travel 01/25/2025 Refill [facility] [address] [place] [address] Joyce Tapia MD Pain 01/25/2025 Travel 01/24/2025 Telephone [facility] [address] [place] [address] Katherine Casper RN 01/24/2025 Travel 01/24/2025 Telephone [facility] [address] [place] [address] Joyce Tapia MD Appointment Request 01/23/2025 Results Follow-Up [facility] [address] [place] [phone] Amber Valencia MD Vascular US lower extremity venous insufficiency bilateral 01/22/2025 Population Health Risk Score [facility] [address] [place] [address] [phone] Provider, Population Health Generic 01/21/2025 Telephone [facility] [address] [place] [phone] Joyce Tapia MD 01/20/2025 Refill [facility] [address] [place] [address] Emerson Keith MD Status post surgical removal of nail matrix of toe of left foot 01/20/2025 Refill [facility] [address] [facility] [place] [address] Joyce Tapia MD 01/17/2025 Refill [facility] [address] [place] [address] Cristal Muhammad, PharmD 01/15/2025 Telephone [facility] [address] [place], [place] [phone] Katherine Casper RN from Last 3 Months Immunizations Immunization Administration Dates Next Due Influenza injectable quadriv alent IIV4 with preservative 05/01/2019,04/28/2018,04/19/2016,03/28 Influenza injectable quadriv alent preservative free 03/22/2023,04/05/2022,04/02/2020,07/01 Influenza, IIV3, injectable 03/28/2014 Influenza, Split (incl. corrine fied surface antigen) 04/10/2012 Influenza, seasonal, injecta ble, preservative free 04/03/2025,06/04/2024 Moderna Covid-19 Vaccine 12+ 10/16/2020,09/19/19 21 Pfizer Covid-19 Vaccine 12+ 04/03/2025, Pneumococcal Conjugate PCV 20 08/07/2024 Pneumococcal Polysaccharide PPSV23 11/21/2016, Rabies - IM Fibroblast Culture 03/30/2024 Rabies, IM Diploid Cell Culture 03/23/2024,03/19,03/16/2024 Td (adult), unspecified 05/17/2001 Tdap 03/16/2024,04/28/2018 Zoster, Recombinant 11/18/2022,09/02/2022 Social History Tobacco Use Types Packs/Day Years Used Date Smoking Tobacco: Every Day Cigarettes Passive Smoke Exposure: Never Smokeless Tobacco: Never Tobacco Cessation:Ready to Q uit: Yes; Counseling Given: Yes Comments:Down to smoking 1 cigarette per day with the use of Chantix [...] Sign Reading Time Taken Comments Blood Pressure 124/76 03/19/2025 10:16 AM EDT Pulse 72 03/19/2025 10:16 AM EDT Temperature 36.8 C (98.2 F) 03/19/2025 10:16 AM EDT Respiratory Rate 20 03/19/2025 10:16 AM EDT Oxygen Saturation 95% 03/19/2025 10:16 AM EDT Inhaled Oxygen Concentration - - Weight 69.9 kg (154 lb) 03/19/2025 10:16 AM EDT Height 160 cm (5' 3 ) 03/19/2025 10:16 AM EDT Body Mass Index 27.28 03/19/2025 10:16 AM EDT Plan of Treatment Upcoming Encounters Date Type Department Care Team (Late st Contact Info) Description 04/23/2025 9:30 AM EDT Office Visit [facility] [address] [place] [address] Ayden Orellana MD [address] [place] [address] 05/06/2025 10:00 AM EST Telemedicine [facility] [address] [place] [address] Cristal Muhammad PharmD [address] [place] [address] 06/04/2025 11:00 AM EST Clinical Support [facility] [address] [place] [address] Katherine Casper, MAKEDA [address] [place] [address] Health Maintenance Due Date Last Done Comments CT Colonography 1962 FIT DNA/Cologuard 1962 FIT 1962 FOBT 1960 HIV Screening 1960 Sigmoidoscopy 1960 Eye Exam 1972 Hepatitis C Screening 1980 RSV Patients and Patients Aged 60 years or older (1 - Risk 60-74 years 1-dose series) 2022 Mammogram 05/28/2024 05/28/2023, 08/04, 08/16/2020, Additional history exists Colonoscopy 02/20/2025 02/20/2015 Colorectal Cancer Screening 02/20/2025 Diabetes: Hemoglobin A1C 04/27/2025 025, 10/31/2024, 07/09/2024, Additional history exists Diabetes: Foot Exam 07/09/2025 07/09/2024, 07/09/2024, 07/09/2024, Additional history exists SDOH Screening 08/30/2025 08/30/2024 Alcohol/Substance Use Screening 09/14/2025 09/14/2024 Depression Screening 09/14/2025 09/14/2024, 09/15/19 Diabetes: Urine Protein Screening 09/25/2025 09/25/2024, 08/20/2021 Lipid Panel 09/25/2025 09/25/2024, 07/09/2024 Disability Screening 03/05/2026 03/05/2025 Cervical Cancer Screening 03/31/2026 HPV/Cotest 03/31/2026 03/31/2021 Pap Smear 03/31/2026 03/31/2021 Tobacco Screening 04/03/2026 04/03/2025 DTaP/Tdap/Td Vaccines (3 - Td or Tdap) 03/16/2034 03/16/2024, 04/28/2018, 05/17/2001 Zoster Vaccines Completed 11/18/2022, 09/02/2022 Pneumococcal Vaccine: 50+ Years Completed 08/07/2024, 11/21/2016, 06/13/2007 COVID-19 Vaccine Completed 04/03/2025, 10/2024, 04/13/2021, Additional history exists Influenza Vaccine Completed 04/03/2025, , 03/22/2023, Additional history exists HIB Vaccines Aged Out [...] Name Priority Date/Time Associated Diagnosis Comments XR FOOT 3+ VIEWS LEFT Routine 03/04/2025 8:23 PM EDT SED RATE BY MODIFIED WESTERGREN Routine 03/04/2025 7:20 PM EDT C-REACTIVE PROTEIN Routine 03/04/2025 7: 20 PM EDT URIC ACID Routine 03/04/2025 7:20 PM EDT COMPREHENSIVE METABOLIC PANEL Routine 03/04/2025 7:20 PM EDT APTT Routine 03/04/2025 7:20 PM EDT PROTHROMBIN TIME-INR Routine 03/04/2025 7:20 PM EDT CBC WITH AUTO DIFFERENTIAL Routine 03/04/2025 7:20 PM EDT LOWER EXTREMITY VENOUS DUPLEX LEFT Routine 03/01/2025 11:30 AM EDT MAGNESIUM Routine 03/01/2025 11:20 AM EDT COMPREHENSIVE METABOLIC PANEL Routine 03/01/2025 11:20 AM EDT CBC WITH AUTO DIFFERENTIAL Routine 03/01/2025 11:20 AM EDT XR FOOT 3+ VIEWS LEFT Routine 03/01/2025 9:42 AM EDT POCT GARETH-14 URINE DRUG SCREEN Routine 02/19/2025 [...] complication, without long-term current use of insulin ([facility]) VASC US LOWER EXTREMITY VENOUS INSUFFICIENCY BILATERAL Routine 01/23/2025 10:40 AM EDT Lower extremity edema ALBUMIN, RANDOM URINE W/CREATININE Routine 09/25/2024 3:50 PM EDT LIPID PANEL, STANDARD Routine 09/25/2024 3:47 PM EDT BI MAMMOGRAM SCREENING TOMOSYNTHESIS BILATERAL Routine 05/28/2023 8:58 AM EST HPV MRNA E6/E7 Routine 03/31/2021 9:06 AM EDT THINPREP PAP Routine 03/31/2021 9:06 AM EDT HM COLONOSCOPY Routine 02/20/2015 from Last 3 Months or Most Recently Relevant to Health Maintenance Results * XR Foot 3+ Views Left (03/04/2025 8:23 PM EDT) Only the most recent of2 resultswithin the time period is included. Anatomical Region Laterality Modality Lower Extremities, Foot Left Radiogra phic Imaging 03/04/2025 8:23 PM EDT Narrative 03/04/2025 8:24 PM EDT [address] [address] XRay Report Signed Patient: Nayely Grover MR#: [id number] 541 : 1960 Acct:[id number] Age/Sex: 64 / F ADM Date: 03/04/25 Loc: HO.ED Attending Dr: Ordering Physician: David Juares Date of Service: 03/04/25 Procedure(s): XR foot LT min 3V Accession Number(s): [id number] cc: David Juares; Joyce Tapia MD CLINICAL HISTORY: pain 3 view left foot Comparison: CR/NM/SR - XR FOOT 3 OR MORE VIEWS LEFT - 03/01/25 10:42 EDT Findings: Bones intact. No dislocations. Mild midfoot spurring. Moderate-sized plantar calcaneal spur. No ankle effusion. No radiopaque foreign body. IMPRESSION: 1. No evidence of acute fracture or dislocation. [id number] DJD. This document has been electronically signed by: Ruben Bermeo MD on 03/04/2025 20:23:06 Dictated By: Ruben Bermeo MD Signed By: <Electronically signed by Ruben Bermeo MD in OV> 03/04/252022 DD/ 22 TD/TT: 03/04/252022 Grain Trimmer: Procedure Note Donotuseinterpreter, Image - 03/04/2025 [place] [address] XRay Report Signed Patient: Nayely GroverMR#: [id number] 541 : 1960Acct:[id number] Age/Sex: 64 / FADM Date: 03/04/25 Loc: HO.ED Attending Dr: Ordering Physician: David Juares Date of Service: 03/04/25 Procedure(s): XR foot LT min 3V Accession Number(s): [id number] cc: David Juares; Joyce Tapia MD CLINICAL HISTORY: pain 3 view left foot Comparison: CR/NM/SR - XR FOOT 3 OR MORE VIEWS LEFT - 03/01/25 10:42 EDT Findings: Bones intact. No dislocations. Mild midfoot spurring. Moderate-sized plantar calcaneal spur. No ankle effusion. No radiopaque foreign body. IMPRESSION: 1. No evidence of acute fracture or dislocation. [id number] DJD. This document has been electronically signed by: Ruben Bermeo MD on 03/04/2025 20:23:06 Dictated By: Ruben Bermeo MD Signed By: <Electronically signed by Ruben Bermeo MD in OV> 03/04/252022 DD/ 22 TD/TT: 03/04/252022 Grain Trimmer: [facility] External Provider IMG XR PROCEDURES Edited Result - Final * CBC auto differential (03/04/2025 7:20 PM EDT) Only the most recent of2 resultswithin the time period is included. White Blood Count 10.3 4.8 - 10.8 X10*3/uL [facility] Red Blood Count 4.69 4.20 - 5.50 X10*6/uL [facility] Hemoglobin 14.0 12.0 - 16.0 g/dl [facility] Hematocrit 41.0 37.0 - 47.0 % [facility] Mean Corpuscular Volume 87.4 80.0 - 98.0 fL [facility] Mean Corpuscular Hemoglobin 29.9 27.0 - 33.0 pg [facility] Mean Corpuscular HGB Conc 34.1 31.0 - 35.0 g/dl [facility] Red Cell Distribution Width 12.9 11.0 - 16.0 % [facility] Platelet Count 178 160 - 400 X10*3/uL [facility] Mean Platelet Volume 9.6 9.4 - 12.3 fL [facility] Neutrophils Percent Auto 67.0 45 - 73 % [facility] Imm Gran Pct Auto 0.3 0.0 - 0.4 % [facility] Lymphocytes Percent Auto 23.9 20 - 40 % [facility] Monocytes Percent Auto 6.5 2 - 11 % [facility] Eosinophils Percent Auto 2.0 0 - 4 % [facility] Basophils Percent Auto 0.3 0 - 2 % [facility] NRBC Pct Auto 0.0 0.0 - 0.2 /100WBC [facility] Neutrophils Absolute Auto 6.9 2.0 - 8.3 x10*3/uL [facility] Imm Gran Abs Auto 0.03 0.00 - 0.03 X10*3/uL [facility] Lymphocytes Absolute Auto 2.5 1.2 - 4.9 X10*3/uL [facility] Monocytes Absolute Auto 0.7 0.1 - 1.2 X10*3/uL [facility] Eosinophils Absolute Auto 0.2 0.0 - 0.4 X10*3/uL [facility] Basophils Absolute Auto 0.0 0.0 - 0.2 X10*3/uL [facility] NRBC Abs Auto 0.000 0.0 - 0.012 X10*3/uL [facility] 03/04/2025 7:20 PM EDT 03/04/2025 7:24 PM EDT Generic External Data Provider LAB BLOOD ORDERAB LES Final Result Performing Organization Address City/[facility]/ZIP Co de Phone Number [facility] [address] [place] [phone] * Partial Thromboplastin Time, Activated (APTT) (03/04/2025 7:20 PM EDT) Pathologist [facility] Partial Thromboplastin Time 28.4 26.7 - 34.1 SEC [facility] 03/04/2025 7:20 PM EDT 03/04/2025 7:24 PM EDT Generic External Data Provider LAB BLOOD ORDERAB LES Final Result Performing Organization Address [facility]/ZIP Co de Phone Number [facility] [address] [place] [phone] * Sed Rate by Henny Mata (03/04/2025 7:20 PM EDT) Erythrocyte Sedimentation Rate 7 0 - 20 MM/HR [facility] Comment:Patients with polycy themia and many hemoglobin abnormalitiesmay have depressed sed rates whereas patients with anemiamay have elevated sed rates. 03/04/2025 7:20 PM EDT 03/04/2025 7:24 PM EDT us Generic External Data Provider LAB BLOOD ORDERAB LES Final Result Performing Organization Address [facility] Co de Phone Number [facility] [address] [place] [phone] * (ABNORMAL) Prothrombin Time-INR (03/04/2025 7:20 PM EDT) Prothrombin Time 10.8(L) 10.9 - 12.4 SEC [facility] INTERNATIONAL NORM RATIO 0.9 0.9 - 1.1 [facility] Comment:INTERNATIONAL NORMAL IZED RATIO (INR) REFERENCE RANGES Reference RangeFor patients not on anticoagulant therapy: 0.9 - 1.1INR ranges for oral anticoagulanttherapy:For prevention and treatment of venous thrombosis and pulmonary embolism: 2.0 - 3.0For acute myocardial infarction with aspirin therapy: 2.0 - 3.0For acute myocardial infarction without aspirin therapy: 3.0 - 4.0For patients with mechanical prosthetic heart valves: 2.5 - 3.5 03/04/2025 7:20 PM EDT 03/04/2025 7:24 PM EDT Generic External Data Provider LAB BLOOD ORDERAB LES Final Result Performing Organization Address [facility] Co de Phone Number [facility] [address] [place] [phone] * C-reactive Protein (03/04/2025 7:20 PM EDT) C Reactive Protein <0.10 < or = 0.50 mg/dL [facility] 03/04/2025 7:20 PM EDT 03/04/2025 7:24 PM EDT Generic External Data Provider LAB BLOOD ORDERAB LES Final Result Performing Organization Address City/[facility]/ZIP Co de Phone Number [facility] [address] [place] [phone] * Uric acid (03/04/2025 7:20 PM EDT) Uric Acid 3.1 2.4 - 5.7 mg/dL [facility] 03/04/2025 7:20 PM EDT 03/04/2025 7:24 PM EDT us Generic External Data Provider LAB BLOOD ORDERAB LES Final Result [facility] [address] [place] [address] [phone] * (ABNORMAL) Comprehensive Metabolic Panel (03/04/2025 7:20 PM EDT) Only the most recent of2 resultswithin the time period is included. Sodium 143 135 - 145 mmol/L [facility] Potassium 4.0 3.3 - 5.1 mmol/L [facility] Chloride 110(H) 96 - 108 mmol/L [facility] Carbon Dioxide 27 22 - 29 mmol/L [facility] Anion Gap 10(L) 12 - 20 [facility] Urea Nitrogen (BUN) 19(H) 9 - 16 mg/dL [facility] Creatinine, Serum 0.85 0.5 - 1.4 mg/dL [facility] Creatinine Clr Calc Pharmacy 69.4 [facility] Comment:Provided height and weight: 165.1 cm,74.843 kg.eGFR (calculated from the MDRD study equation) and eCrCl(calculated from the Cockcroft-Gault equation) are based ondifferent parameters and may not yield comparable results.If eCrCl result is absurd, please check patient'sheight/weight. Estimated Glomerular Filt Rate >60 [facility] Comment:Chronic Kidney Disea se: Estimated GFR < 60 mL/min/1.67h1Erbfuz Kidney Disease: Estimated GFR < 15 mL/min/1.73m2 Glucose 80 60 - 115 mg/dL [facility] Calcium 8.7 8.4 - 10.2 mg/dL [facility] Bilirubin, Total 0.3 0.0 - 1.0 mg/dL [facility] Aspartate Amino Transferase 24 5 - 31 U/L [facility] Alanine Aminotransferase 32(H) 0 - 31 U/L [facility] Total Protein 6.5 6.5 - 8.0 g/dL [facility] Albumin Level 4.1 3.5 - 5.0 g/dL [facility] Alkaline Phosphatase 92 39 - 117 U/L [facility] 03/04/2025 7:20 PM EDT 03/04/2025 7:24 PM EDT us Generic External Data Provider LAB BLOOD ORDERAB LES Final Result Performing Organization Address City/State/[facility] Co de Phone Number [facility] [address] [place] [phone] * Lower Extremity Venous Duplex (03/01/2025 11:30 AM EDT) 03/01/2025 11:3 0 AM EDT Narrative [facility] - 03/01/2025 12:26 PM EDT [address] [address] Ultrasound Report Signed Patient: Nayely Grover MR#: [id number] 541 : 1960 Acct:[id number] Age/Sex: 64 / F ADM Date: 03/01/25 Loc: HO.ED Attending Dr: Ordering Physician: Rabia Maki Date of Service: 03/01/25 Procedure(s): US venous duplex LE Accession Number(s): [id number] cc: Joyce Tapia MD; Rabia Maki EXAMINATION: US TRIPLEX LOWER EXTREMITY, LEFT CLINICAL INFORMATION: Left foot pain COMPARISON: None available. TECHNIQUE: Color-flow triplex imaging with spectral analysis and compression Doppler were performed on the left lower extremity. FINDINGS: Respiratory variation, normal compression and augmented flow are noted throughout the left lower extremity. The visualized common femoral vein, superficial femoral vein, profunda femoral vein, popliteal vein and midcalf peroneal and posterior tibial venous segments show no evidence of deep venous thrombosis. There is no Freeman's cyst. US/US venous duplex LE LT IMPRESSION: No evidence of deep venous thrombosis involving the left lower extremity. Electronically signed by: Joe Powers MD 03/01/2025 12:23 PM EDT RP Dictated By: Joe Powers MD Signed By: <Electronically signed by Joe Powers MD in OV> 03/01/25 1223 DD/ 1130 TD/TT: 03/01/25 1200 Grain Trimmer: Procedure Note Donotuseinterpreter, Image - 03/01/2025 [place] [address] Ultrasound Report Signed Patient: Nayely GroverMR#: [id number] 541 : 1960Acct:[id number] Age/Sex: 64 / FADM Date: 03/01/25 Loc: .ED Attending Dr: Ordering Physician: Rabia Maki Date of Service: 03/01/25 Procedure(s): US venous duplex LE LT Accession Number(s): [id number] cc: Joyce Tapia MD; Rabia Maki EXAMINATION: US TRIPLEX LOWER EXTREMITY, LEFT CLINICAL INFORMATION: Left foot pain COMPARISON: None available. TECHNIQUE: Color-flow triplex imaging with spectral analysis and compression Doppler were performed on the left lower extremity. FINDINGS: Respiratory variation, normal compression and augmented flow are noted throughout the left lower extremity. The visualized common femoral vein, superficial femoral vein, profunda femoral vein, popliteal vein and midcalf peroneal and posterior tibial venous segments show no evidence of deep venous thrombosis. There is no Freeman's cyst. US/US venous duplex LE LT IMPRESSION: No evidence of deep venous thrombosis involving the left lower extremity. Electronically signed by: Joe Powers MD 03/01/2025 12:23 PM EDT RP Dictated By: Joe Powers MD Signed By: <Electronically signed by Joe Powers MD in OV> 03/01/25 1223 DD/ 1130 TD/TT: 03/01/25 1200 Grain Trimmer: [facility] External Provider CV VASC ULAR PROCEDURES Edited Result - Final Performing Organization Address [facility] Co de Phone Number [facility] [address] [place] [address] * Magnesium (03/01/2025 11:20 AM EDT) Magnesium 2.1 1.6 - 2.6 mg/dL [facility] 03/01/2025 11:2 0 AM EDT 03/01/2025 11:21 AM EDT Generic External Data Provider LAB BLOOD ORDERAB LES Final Result Performing Organization Address [facility] de Phone Number [facility] [address] [place] [phone] * (ABNORMAL) POCT GARETH-14 Urine Drug Screen [...] Unknown 02/19/2025 1:10 PM EDT Narrative Katherine Casper RN - 02/19/2025 1:10 PM EDT Internal Pass Control Lot# [id number] Exp: 05-03-26 Joyce Tapia MD POINT OF CARE TEST ENTER/EDIT OR DERABLES Final Result * Gross and Microscopic Level 3 (01/31/2025 8:40 AM EDT) 01/31/2025 8:40 AM EDT 01/31/2025 9:22 AM EDT [facility] - 02/01/2025 1:38 PM EDT ----- ------- Name: Nayely Grover Age/Sex: 64/F : 1960 Unit#: [id number] Attend Dr: Jessy Bautista MD Re01/31/25 Status: [facility] Location: .[facility] Disch: ----- ------- SPEC : [id number] RECD: 01/31/25 STATUS: LEXX CHANDLER NUM: [id number] JOSE: 01/31/25 [facility] DR: Jessy Bautista MD ENTERED: 01/31/25 [...] developed and their performance characteristics determined by [facility]. They have not been cleared or approved by the U.S. Food and Drug Administration (FDA). However, the FDA has determined that such clearance or approval is not necessary. This laboratory is certified under the Clinical Laboratory Improvement Amendments of 1988 (CLIA) as qualified to perform high complexity clinical laboratory testing. Copies To: Joyce Tapia MD [place] [id number] CONTINUED ON NEXT PAGE ----- ------- Name: Nayely Grover Age/Sex: 64/F : 1960 Unit#: [id number] Attend Dr: Jessy Bautista MD Re01/31/25 Status: [facility] Location: [facility] Disch: ----- ------- SPEC : [id number] RECD: 01/31/25 STATUS: LEXX CHANDLER NUM: [id number] JOSE: 01/31/25 [facility] DR: Jessy Bautista MD ENTERED: 01/31/25 SP TYPE: Surgical OTHR DR: Joyce Tapia MD ORDERED: Gross Micro L3 Copies To: (Continued) Jessy Bautista MD [facility] [address] [place] [address] Dr [address] [place] [address] ----- ------- Signed (signature on file) Ayan Romero MD 02/01/25 1338 ----- ------- END OF REPORT Generic External Data Provider LAB CYTOLOGY ORDE RABLES Final Result Performing Organization Address [facility] de Phone Number [facility] [address] [place], [place] [phone] * (ABNORMAL) Glucose, Whole Blood (01/31/2025 6:45 AM EDT) Glucose, Whole Blood 137(H) 60 - 115 mg/dL [facility] Comment:METER #: [id number] 01/31/2025 6:45 AM EDT 01/31/2025 6:49 AM EDT Generic External Data Provider LAB BLOOD ORDERAB LES Final Result Performing Organization Address [facility] Co de Phone Number [facility] [address] [place], [place] [phone] * (ABNORMAL) Bacterial Vaginosis (01/26/2025 12:00 AM EDT) Pathologist [facility] TRICHOMONAS VAGINALIS DETECTION BY PCR NOT DETECTED Not Detect [facility] BACTERIAL VAGINOSIS DETECTION BY PCR NEGATIVE Negative [facility] Comment:The BV organism targ ets [...] GROUP DETECTION BY PCR DETECTED(A) Not Detect [facility] Nadya glab krusei PCR NOT DETECTED Not Detect [facility] 01/26/2025 01/26/2025 1:5 5 PM EDT Myra Connors MD LAB MICROBIOLOGY - GENERAL ORDERABLES Final Result [facility] [address] [place] [phone] * Chlamydia/N. Gonorrhoeae RNA, TMA, Vagina (01/26/2025 12:00 AM EDT) Pathologist [facility] CT PCR NOT DETECTED Not Detect. [facility] Comment:A not detected test result [...] psychologicalconsequences. NG PCR NOT DETECTED Not Detect. [facility] Comment:A not detected test result [...] / Unknown 01/26/2025 01/26/2025 1:55 PM EDT Myra Connors MD LAB MICROBIOLOGY - GENERAL ORDERABLES Final Result [facility] [address] [place] [address] [phone] * (ABNORMAL) POCT A1C (01/25/2025 4:11 PM EDT) Hemoglobin A1C 7.1(A) 4.0 - 5.7 % QC Media Lot # [id number] Lot# Expiration Date Blood 01/25/2025 4:11 PM EDT Joyce Tapia MD POINT OF CARE TEST ENTER/EDIT OR DERABLES Final Result * Vascular US lower extremity venous insufficiency bilateral (01/23/2025 10:40 AM EDT) 01/23/2025 10:4 0 AM EDT Narrative [facility] - 01/23/2025 11:40 AM EDT [address] [address] Ultrasound Report Signed Patient: Nayely Grover MR#: [id number] 541 : 1960 Acct:[id number] Age/Sex: 64 / F ADM Date: 01/23/25 Loc: . Attending Dr: Amber Landry MD Ordering Physician: Amber Valencia MD Date of Service: 01/23/25 Procedure(s): US venous insuf bilat Accession Number(s): [id number] cc: Joyce Tapia MD; Amber Valencia MD [...] 01/23/25 1137 DD/ 1040 TD/TT: 01/23/25 1117 Grain Trimmer: Procedure Note Donotuseinterpreter, Image - 01/23/[address] [address] Ultrasound Report Signed Patient: Charly Grover#: [id number] 541 : 1960Acct:[id number] Age/Sex: 64 / FADM Date: 01/23/25 Loc: HO.US Attending Dr: Amber Landry MD Ordering Physician: Amber Valencia MD Date of Service: 01/23/25 Procedure(s): US venous insuf bilat Accession Number(s): [id number] cc: Joyce Tapia MD; Amber Valencia MD [...] 01/23/25 1137 DD/ 1040 TD/TT: 01/23/25 1117 Grain Trimmer: us Amber Landry MD CV VASCULAR PROCE DURES Final Result Performing Organization Address City/[facility]/ZIP Co de Phone Number [facility] [address] [place] [address] * Albumin, Random Urine W/Creatinine (09/25/2024 3:50 PM EDT) Creatinine, Urine 83.95 mg/dL [facility] Microalbumin Urine <5.0 mg/L [facility] Microalbum Creatinine Ratio Ur TNP <30 ug/mg cr [facility] Comment:Unable to calculate albumin/creatinine ratio due to lowmicroalbumin or creatinine result. 09/25/2024 3:50 PM EDT 09/25/2024 5:55 PM EDT us Joyce Tapia MD LAB URINE ORDERABLES Final Resul t Performing Organization Address [facility] Co de Phone Number [facility] [address] [place] [phone] * Lipid Panel, Standard (09/25/2024 3:47 PM EDT) Triglycerides 56 <150 mg/dL [facility] Comment:Desirable Triglyceri de: less than 150 mg/dLBorderline High Triglyceride 150-199 mg/dLHigh Triglyceride: 200-499 mg/dLVery High Triglyceride: greater than or equal to 5OO mg/dL Cholesterol 119 <200 mg/dL [facility] Comment:Desirable Cholestero l: less than 200 mg/dLBorderline High Cholesterol: 200-239 mg/dLHigh Cholesterol: greater than 239 mg/dL LDL Cholesterol Calculated 47 <100 mg/dL [facility] Comment:Desirable LDL: less than 100 mg/dLNear Optimal/Above Optimal LDL: 110- 129 mg/dLBorderline High LDL: 130-159 mg/dLHigh LDL: 160-189 mg/dLVery High LDL: greater than or equal to 190 mg/dL HDL Cholesterol 61 >40 mg/dL [facility] Comment:Desirable HDL: great er than 40 mg/dL Note: This HDL assay may give artificially low results in patients with liver disease. 09/25/2024 3:47 PM EDT 09/25/2024 6:08 PM EDT us Joyce Tapia MD LAB BLOOD ORDERABLES Final Resul t [facility] [address] [place] [phone] * BI Mammogram Screening Tomosynthesis Bilateral (05/28/2023 8:58 AM EST) Anatomical Region Laterality Modality Breast Bilateral Mammography 05/28/2023 8:58 AM EST Narrative 06/03/2023 8:41 AM EST [facility] [address] [place] [address] Mammography Report Signed Patient: Nayely Grover MR#: [id number] 541 : 1960 Acct:[id number] Age/Sex: 62 / F ADM Date: 05/28/23 Loc: HO.MAMMO Attending Dr: Joyce Tapia MD Ordering Physician: Joyce Tapia MD Results: 1Negati ve Date of Service: 05/28/23 Follow Up: 1 Year From [facility] Mammogram Procedure(s): MM tomosynthesis screening BI Accession Number(s): [id number] cc: Joyce Tapia MD EXAMINATION: MM SCREENING [...] Colon MD in OV> 06/03/2337 DD/ TD/TT: Grain Trimmer: Procedure Note Donotuseinterpreter, Image - 06/03/2023 [facility] [address] [place] [address] Mammography Report Signed Patient: Nayely GroverMR#: [id number] 541 : 1960Acct:[id number] Age/Sex: 62 / FADM Date: 05/28/23 Loc: MAMMO Attending Dr: Joyce Tapia MD Ordering Physician: Joyce Tapia MDResults: 1Negati ve Date of Service: 05/28/23Follow Up: 1 Year From Orig inal Mammogram Procedure(s): MM tomosynthesis screening BI Accession Number(s): [id number] cc: Joyce Tapia MD EXAMINATION: MM SCREENING [...] Radha Colon MD in OV> 06/03/2337 DD/ 0858 TD/TT: Grain Trimmer: Joyce Tapia MD IMG BI PROCEDURES Final [...] along with historic and current clinical information. Art Conservator : SEE [facility]MENT [facility] Comment: JXM, CT(ASCP) CT screening location: [place] [address] Interpretation/R esult: Negative for intraepithelial lesion or [...] Final Result [facility] [address] * HPV mRNA E6/E7 (03/31/2021 9:06 AM EDT) HPV nRNA E6/E7 Not Detected Not Detected [facility] Comment: Methodology: Intelligence Analyst-Mediated Amplification This assay detects E6/E7 viral messenger RNA (mRNA) from 14 high-risk HPV types (16,18,31,33,35,39,45,51,52,56,58,59,66,68). The analytical performance characteristics of this assay have been determined by [facility]. The modifications have not been cleared or approved by the FDA. This assay has been validated pursuant to the CLIA regulations and is used for clinical purposes. For additional information, please refer to http://education.EZ4U/faq/BKR198u2 (This link if provided for information/ educational purposes only.) 03/31/2021 9:06 AM EDT Noa De Santiago CNM LAB BLOOD ORDERABLES Patt kelley Result [facility] [address] * Colonoscopy (02/20/2015) Colonoscopy Normal Normal Narrative Zohra Benavidez - 02/20/2015 Repeat in 10 year Historical Provider HEALTH MAINTENANCE Final Result from Last 3 Months or Most Recently Relevant to Health Maintenance Insurance [facility] C3 Care Teams Building Services Technician Relationship Specialty Start Date End Date Joyce Tapia MD [address] [place] [address] PCP - General Family Medicine 06/19/12 Cristal Muhammad, BobD [address] [place] [address] Pharmacist Pharmacy 08/07/24
--- OUTSIDE RECORDS SUMMARY | 2025-04-17 16:20 | XMS_ITS | Encounter Summary ---
Author Organization [employer] Address [address] [facility] [address]t [place] [address] Care Team Providers Care Airfield Services Officer Name Role Phone Joyce Tapia MD Primary Care Provider [phone] Cristal Muhammad PharmD Unavailable [phone] Reason for Visit * Reason Onset Date Comments Med Refill 04/19/2023 Encounter Details Date Type Department Care Team ([facility] Contact Info) Description 04/19/2023 Telephone [facility]ED[facility] [address] [place] [address] Joyce Tapia MD [address] [place] [address] Med Refill Social History Tobacco Use Types [...] [facility] P[facility] [address] [place] [address] Ayden Orellana MD [address] [place] [address] 05/06/2025 10:00 AM EST Telemedicine [facility] MED & PEDS [address] [place] [address] Cristal Muhammad PharmD [address] [place] [address] 06/04/2025 11:00 AM EST Clinical Support [facility] MED & PEDS [address] [place] [address] Katherine Casper RN [address] [place] [address] documented as of this encounter Visit Diagnoses Not on filedocumented in this encounter Care Teams Airfield Services Officer Relationship Specialty Start Date End Date Joyce Tapia MD [address] [place] [address] PCP - General Family Medicine 06/19/12 Cristal Muhammad PharmD [address] [place] [address] Pharmacist Pharmacy 08/07/24 documented as of this encounter
--- OUTSIDE RECORDS SUMMARY | 2025-04-17 16:20 | XMS_ITS | Encounter Summary ---
Author Organization [employer] Address [address] [facility] [address] [place] [address] Care Team Providers Care Weather Stripper Name Role Phone Joyce Tapia MD Primary Care Provider [phone] Cristal Muhammad PharmD Unavailable [phone] Reason for Visit * Reason Onset Date Comments Med Refill 08/15/2024 Encounter Details Date Type Department Care Team ([facility] st Contact Info) Description 08/15/2024 Refill [facility] [address] [place] [address] Joyce Tapia MD [address] [place] [address] Status post surgical removal of nail matrix [...] 04/23/2025 9:30 AM EDT Office Visit [facility] [address] [place] [address] Ayden Orellana MD [address] [place] [address] 05/06/2025 10:00 AM EST Telemedicine [facility] [address] [place] [address] Cristal Muhammad PharmD [address] [place] [address] 06/04/2025 11:00 AM EST Clinical Support [facility] [address] [place] [address] Katherine Casper, MAKEDA [address] [place] [address] documented as of this encounter Visit Diagnoses Diagnosis Status post surgical removal of nail matrix of toe of left foot documented in this encounter Care Teams Weather Stripper Relationship Specialty Start Date End Date Joyce Tapia MD [address] [place] [address] PCP - General Family Medicine 06/19/12 Cristal Muhammad PharmD [address] [place] [address] Pharmacist Pharmacy 08/07/24 documented as of this encounter
--- OUTSIDE RECORDS SUMMARY | 2025-04-17 16:20 | XMS_ITS | Encounter Summary ---
Author Organization [employer] Address [address] [facility] [address] 7t [place] [address] Care Team Providers Care Assistant Analyst Name Role Phone Joyce Tapia MD Primary Care Provider [phone] Cristal Muhammad PharmD Unavailable [phone] Encounter Details Date Type Department Care Team (Latest Contact Info) Description 04/15/2025 Travel Social History Tobacco Use Types Packs/Day [...] [facility] 505 [place] [address] Ayden Orellana MD 505 [place] [address] 05/06/2025 10:00 AM EST Telemedicine [facility] MED & PEDS 505 [place] [address] Cristal Muhammad PharmD 230 [place] [address] 06/04/2025 11:00 AM EST Clinical Support [facility] MED & PEDS 505 [place] [address] Katherine Casper, RN 505 [place] [address] documented as of this encounter Visit Diagnoses Not on filedocumented in this encounter Additional Health Concerns Assessment Noted Time PHQ-9 Depression Total Score: 7 09/15/19 25 9:02 AM EDT documented as of this encounter Care Teams Assistant Analyst Relationship Specialty Start Date End Date Joyce Tapia MD 230 [place] [address] PCP - General Family Medicine 06/19/12 Cristal Muhammad, PharmD 230 [place] [address] Pharmacist Pharmacy 08/07/24 documented as of this encounter
--- OUTSIDE RECORDS SUMMARY | 2025-04-17 16:20 | XMS_ITS | Encounter Summary ---
Author Organization [employer] Address [address] [facility] 7t [place] [address] Care Team Providers Care Dynamic Etching Processor Name Role Phone Joyce Tapia MD Primary Care Provider [phone] Cristal Muhammad PharmD Unavailable [phone] Reason for Visit * Reason Onset Date Comments Med Refill 09/05/2024 Encounter Details Date Type Department Care Team ([facility] st Contact Info) Description 09/05/2024 Refill [facility] MED & PEDS [address] [place] [address] Joyce Tapia MD 505 [place] [address] Status post surgical removal of nail matrix [...] Description 04/23/2025 9:30 AM EDT Office Visit [facility] MED & PEDS [address] [place] [address] Ayden Orellana MD 505 [place] [address] 05/06/2025 10:00 AM EST Telemedicine [facility] MED & PEDS [address] [place] [address] Cristal Muhammad PharmD 230 [place] [address] 06/04/2025 11:00 AM EST Clinical Support [facility] MED & PEDS [address] [place] [address] Katherine Casper, MAKEDA 505 [place] [address] documented as of this encounter Visit Diagnoses Diagnosis Status post surgical removal of nail matrix of toe of left foot documented in this encounter Care Teams Dynamic Etching Processor Relationship Specialty Start Date End Date Joyce Tapia MD 230 [place] [address] PCP - General Family Medicine 06/19/12 Cristal Muhammad PharmD 230 [place] [address] Pharmacist Pharmacy 08/07/24 documented as of this encounter
--- OUTSIDE RECORDS SUMMARY | 2025-04-17 16:20 | XMS_ITS | Encounter Summary ---
Author Organization [employer] Address 75 [facility] 7t [place] [address] Care Team Providers Care Can Patcher Name Role Phone Joyce Tapia MD Primary Care Provider [phone] Cristal Muhammad PharmD Unavailable [phone] Reason for Visit * Reason Comments Med Refill Encounter Details Date Type Department Care Team ([facility] Contact Info) Description 04/12/2025 Refill [facility] MED & PEDS 505 [place], [place] [phone] Joyce Tapia MD 505 [place] [address] Type 2 diabetes mellitus without complication, without long-term current use of insulin (HCC) Social History Tobacco Use Types Packs/Day Years [...] 04/23/2025 9:30 AM EDT Office Visit [facility] MED & PEDS [address] [place] [address] Ayden Orellana MD 505 [place] [address] 05/06/2025 10:00 AM EST Telemedicine [facility] MED & PEDS 505 [place] [address] Cristal Muhammad, PharmD 230 [place] [address] 06/04/2025 11:00 AM EST Clinical Support [facility] MED & PEDS [address] [place] [address] Katherine Casper, MAKEDA 505 [place] [address] documented as of this encounter Visit Diagnoses Diagnosis Type 2 diabetes mellitus without complication, without long-term current use of insulin (HCC) documented in this encounter Additional Health Concerns Assessment Noted Time PHQ-9 Depression Total Score: 7 09/15/19 25 9:02 AM EDT documented as of this encounter Care Teams Can Patcher Relationship Specialty Start Date End Date Joyce Tapia MD 230 [place] [address] PCP - General Family Medicine 06/19/12 Cristal Muhammad PharmD 230 [place] [address] Pharmacist Pharmacy 08/07/24 documented as of this encounter
--- OUTSIDE RECORDS SUMMARY | 2025-04-17 16:21 | XMS_ITS | Encounter Summary ---
Author Organization [employer] Address 75 [facility] 7t [place] [address] Care Team Providers Care General Cleaner Name Role Phone Joyce Tapia MD Primary Care Provider [phone] Cristal Muhammad PharmD Unavailable [phone] Reason for Visit * Reason Onset Date Comments Med Refill 06/25/2024 Encounter Details Date Type Department Care Team (Late st Contact Info) Description 06/25/2024 Refill [facility] MEDICINE 230 [place] [address] Joyce Tapia MD [address] [place], [place] [phone] Status post surgical removal of nail matrix [...] [facility] MED & PEDS 505 [place] [address] Ayden Orellana MD 505 [place] [address] 05/06/2025 10:00 AM EST Telemedicine [facility] MED & PEDS 505 [place] [address] Cristal Muhammad PharmD 230 [place] [address] 06/04/2025 11:00 AM EST Clinical Support [facility] MED & PEDS 505 [place] [address] Katherine Casper RN 505 [place] [address] documented as of this encounter Visit Diagnoses Diagnosis Status post surgical removal of nail matrix of toe of left foot documented in this encounter Care Teams General Cleaner Relationship Specialty Start Date End Date Joyce Tapia MD [address] [place] [address] PCP - General Family Medicine 06/19/12 Cristal Muhammad PharmD 230 [place] [address] Pharmacist Pharmacy 08/07/24 documented as of this encounter
--- OUTSIDE RECORDS SUMMARY | 2025-04-17 16:21 | XMS_ITS | Encounter Summary ---
Author Organization [employer] Address 75 [facility] 7t [place] [address] Care Team Providers Care Technical Sme Name Role Phone Joyce Tapia MD Primary Care Provider [phone] Cristal Muhammad PharmD Unavailable [phone] Reason for Visit * Reason Onset Date Comments Med Refill 05/30/2023 Encounter Details Date Type Department Care Team ([facility] st Contact Info) Description 05/30/2023 Telephone [facility] MEDICINE [address] [place], [place] [phone] Joyce Tapia MD [address] [place], [place] [phone] Med Refill Social History Tobacco Use Types [...] oxyCODONE (Roxicodone) 5 MG immediate release tablet [facility] [place] - [address] [facility] documented in this encounter Plan of Treatment Upcoming Encounters Date Type Department Care Team (Late st Contact Info) Description 04/23/2025 9:30 AM EDT Office Visit [facility] MED & PEDS 505 [place] [address] Ayden Orellana MD 505 [place] [address] 05/06/2025 10:00 AM EST Telemedicine [facility] MED & PEDS 505 [place] [address] Cristal Muhammad PharmD 230 [place] [address] 06/04/2025 11:00 AM EST Clinical Support [facility] MED & PEDS [address] [place] [address] Katherine Casper, MAKEDA 505 [place] [address] documented as of this encounter Visit Diagnoses Not on filedocumented in this encounter Care Teams Technical Sme Relationship Specialty Start Date End Date Joyce Tapia MD [address] [place] [address] PCP - General Family Medicine 06/19/12 Cristal Muhammad PharmD [address] [place] [address] Pharmacist Pharmacy 08/07/24 documented as of this encounter
--- OUTSIDE RECORDS SUMMARY | 2025-04-17 16:21 | XMS_ITS | Encounter Summary ---
Author Organization [employer] Address [address] [facility] 7t [place] [address] Care Team Providers Care Manager Of Compliance Name Role Phone Joyce Tapia MD Primary Care Provider [phone] Cristal Muhammad PharmD Unavailable [phone] Reason for Visit * Reason Onset Date Comments Med Refill 09/17/2024 Encounter Details Date Type Department Care Team ([facility] st Contact Info) Description 09/17/2024 Refill [facility] MED & PEDS 505 [place] [address] Emerson Keith MD 505 [place] [address] Status post surgical removal of nail matrix [...] 04/23/2025 9:30 AM EDT Office Visit [facility] MED & PEDS 505 [place] [address] Ayden Orellana MD 505 [place] [address] 05/06/2025 10:00 AM EST Telemedicine [facility] MED & PEDS [address] [place] [address] Cristal Muhammad, PharmD 230 [place] [address] 06/04/2025 11:00 AM EST Clinical Support [facility] MED & PEDS 505 [place] [address] Katherine Casper RN 505 [place] [address] documented as of this encounter Visit Diagnoses Diagnosis Status post surgical removal of nail matrix of toe of left foot documented in this encounter Additional Health Concerns Assessment Noted Time PHQ-9 Depression Total Score: 7 09/15/19 9:02 AM EDT documented as of this encounter Care Teams Manager Of Compliance Relationship Specialty Start Date End Date Joyce Tapia MD 230 [place] [address] PCP - General Family Medicine 06/19/12 Cristal Muhammad PharmD 230 [place] [address] Pharmacist Pharmacy 08/07/24 documented as of this encounter
--- OUTSIDE RECORDS SUMMARY | 2025-04-17 16:21 | XMS_ITS | Encounter Summary ---
Author Organization [employer] Address [address] [facility] 7t [place] [address] Care Team Providers Care Ese Teacher Name Role Phone Joyce Tapia MD Primary Care Provider [phone] Cristal Muhammad PharmD Unavailable [phone] Reason for Visit * Reason Onset Date Comments Med Refill 09/26/2024 Encounter Details Date Type Department Care Team ([facility] st Contact Info) Description 09/26/2024 Refill [facility] MED & PEDS 505 [place] [address] Joyce Tapia MD 505 [place] [address] Status post surgical removal of nail matrix [...] [facility] 505 [place] [address] Ayden Orellana MD 505 [place] [address] 05/06/2025 10:00 AM EST Telemedicine [facility] MED & PEDS [address] [place] [address] Cristal Muhammad, PharmD 230 [place] [address] 06/04/2025 11:00 AM EST Clinical Support [facility] MED & PEDS 505 [place] [address] Katherine Casper, MAKEDA 505 [place] [address] documented as of this encounter Visit Diagnoses Diagnosis Status post surgical removal of nail matrix of toe of left foot documented in this encounter Additional Health Concerns Assessment Noted Time PHQ-9 Depression Total Score: 7 09/15/19 9:02 AM EDT documented as of this encounter Care Teams Ese Teacher Relationship Specialty Start Date End Date Joyce Tapia MD 230 [place] [address] PCP - General Family Medicine 06/19/12 Cristal Muhammad PharmD 230 [place] [address] Pharmacist Pharmacy 08/07/24 documented as of this encounter
--- OUTSIDE RECORDS SUMMARY | 2025-04-17 16:21 | XMS_ITS | Encounter Summary ---
Author Organization [employer] Address [address] [facility] 7t [place] [address] Care Team Providers Care Sulfuric Acid Plant Supervisor Name Role Phone Joyce Tapia MD Primary Care Provider [phone] Cristal Muhammad PharmD Unavailable Reason for Visit * Reason Onset Date Comments Med Refill 12/03/2024 Encounter Details Date Type Department Care Team ([facility] st Contact Info) Description 12/03/2024 Telephone [facility] MEDICINE 230 [place], [place] [phone] Joyce Tapia MD [address] [place], [place] [phone] Med Refill Social History Tobacco Use Types [...] Upcoming Encounters Date Type Department Care Team ([facility] st Contact Info) Description 04/23/2025 9:30 AM EDT Office Visit [facility] MED & PEDS 505 [place] [address] Ayden Orellana MD 505 [place] [address] 05/06/2025 10:00 AM EST Telemedicine [facility] MED & PEDS 505 [place] [address] Cristal Muhammad, PharmD 230 [place] [address] 06/04/2025 11:00 AM EST Clinical Support [facility] MED & PEDS [address] [place] [address] Katherine Casper, RN 505 [place] [address] documented as of this encounter Visit Diagnoses Not on filedocumented in this encounter Additional Health Concerns Assessment Noted Time PHQ-9 Depression Total Score: 7 09/15/19 25 9:02 AM EDT documented as of this encounter Care Teams Sulfuric Acid Plant Supervisor Relationship Specialty Start Date End Date Joyce Tapia MD [address] [place] [address] PCP - General Family Medicine 06/19/12 Cristal Muhammad PharmD [address] [place] [address] Pharmacist Pharmacy 08/07/24 documented as of this encounter
--- OUTSIDE RECORDS SUMMARY | 2025-04-17 16:21 | XMS_ITS | Encounter Summary ---
Author Organization [employer] Address [address] [place] [address] [address] [address] Care Team Providers Care Camera Repair Technician Name Role Phone Joyce Tapia MD Primary Care Provider [phone] Cristal Muhammad PharmD Unavailable [phone] Reason for Visit * Reason Comments Med Refill Encounter Details Date Type Department Care Team (Late Contact Info) Description 10/03/2023 Refill [facility] MED & PEDS [address] [place] [address] Joyce Tapia MD 505 [place] [address] Arthropathy Social History Tobacco Use Types Packs/Day [...] Description 04/23/2025 9:30 AM EDT Office Visit [facility] MED & PEDS 505 [place] [address] Ayden Orellana MD 505 [place], [place] [phone] 05/06/2025 10:00 AM EST Telemedicine [facility] MED & PEDS 505 [place] [address] Cristal Muhammad PharmD 230 [place] [address] 06/04/2025 11:00 AM EST Clinical Support [facility] MED & PEDS 505 [place] [address] Katherine Casper, RN 505 [place] [address] documented as of this encounter Visit Diagnoses Diagnosis Arthropathy Unspecified arthropathy, site unspecified documented in this encounter Care Teams Camera Repair Technician Relationship Specialty Start Date End Date Joyce Tapia MD 230 [place] [address] PCP - General Family Medicine 06/19/12 Cristal Muhammad, Deonte 230 [place] [address] Pharmacist Pharmacy 08/07/24 documented as of this encounter
--- OUTSIDE RECORDS SUMMARY | 2025-04-17 16:21 | XMS_ITS | Encounter Summary ---
Author Organization [employer] Address 75 [facility] 7t [place] [address] Care Team Providers Care Chief Scientist Name Role Phone Joyce Tapia MD Primary Care Provider [phone] Cristal Muhammad PharmD Unavailable [phone] Reason for Visit * Reason Onset Date Comments Med Refill 06/28/2023 Encounter Details Date Type Department Care Team ([facility] st Contact Info) Description 06/28/2023 Telephone [facility] MEDICINE 230 [place], [place] [phone] Joyce Tapia MD [address] [place], [place] [phone] Med Refill Social History Tobacco Use Types [...] [facility] [place], [place] - 505 [facility] documented in this encounter Plan of Treatment Upcoming Encounters Date Type Department Care Team (Late st Contact Info) Description 04/23/2025 9:30 AM EDT Office Visit [facility] MED & PEDS 505 [place] [address] Ayden Orellana MD 505 [place] [address] 05/06/2025 10:00 AM EST Telemedicine [facility] MED & PEDS 505 [place] [address] Cristal Muhammad PharmD [address] [place] [address] 06/04/2025 11:00 AM EST Clinical Support [facility] MED & PEDS [address] [place] [address] Katherine Casper, MAKEDA 505 [place] [address] documented as of this encounter Visit Diagnoses Not on filedocumented in this encounter Care Teams Chief Scientist Relationship Specialty Start Date End Date Joyce Tapia MD [address] [place] [address] PCP - General Family Medicine 06/19/12 Cristal Muhammad PharmD [address] [place] [address] Pharmacist Pharmacy 08/07/24 documented as of this encounter
--- OUTSIDE RECORDS SUMMARY | 2025-04-17 16:21 | XMS_ITS | Encounter Summary ---
Author Organization [employer] Address 75 [facility] 7t [place] [address] Care Team Providers Care Phys Therapist Name Role Phone Joyce Tapia MD Primary Care Provider [phone] Cristal Muhammad PharmD Unavailable [phone] Reason for Visit * Reason Onset Date Comments Med Refill 10/24/2024 Encounter Details Date Type Department Care Team (Late st Contact Info) Description 10/24/2024 Refill [facility] MEDICINE 230 [place] [address] Ayden Orellana MD 505 [place], [place] [phone] Status post surgical removal of nail matrix [...] 9:30 AM EDT Office Visit [facility] MED & PEDS 505 [place] [address] Ayden Orellana MD 505 [place] [address] 05/06/2025 10:00 AM EST Telemedicine [facility] MED & PEDS [address] [place] [address] Cristal Muhammad, PharmD 230 [place] [address] 06/04/2025 11:00 AM EST Clinical Support [facility] MED & PEDS 505 [place] [address] Katherine Casper, MAKEDA 505 [place] [address] documented as of this encounter Visit Diagnoses Diagnosis Status post surgical removal of nail matrix of toe of left foot documented in this encounter Additional Health Concerns Assessment Noted Time PHQ-9 Depression Total Score: 7 09/15/19 9:02 AM EDT documented as of this encounter Care Teams Phys Therapist Relationship Specialty Start Date End Date Joyce Tapia MD 230 [place] [address] PCP - General Family Medicine 06/19/12 Cristal Muhammad PharmD 230 [place] [address] Pharmacist Pharmacy 08/07/24 documented as of this encounter
--- OUTSIDE RECORDS SUMMARY | 2025-04-17 16:21 | XMS_ITS | Encounter Summary ---
Author Organization [employer] Address [address] [facility] 7 [place] [address] Care Team Providers Care Package Collector Name Role Phone Joyce Tapia MD Primary Care Provider [phone] Cristal Muhammad PharmD Unavailable [phone] Reason for Visit * Reason Comments Med Refill Encounter Details Date Type Department Care Team (Late Contact Info) Description 06/07/2023 Refill [facility] MED & PEDS 505 [place], [place] [phone] Ev Lewis, ANP 230 [place], [place] [phone] Status post surgical removal of nail matrix [...] Upcoming Encounters Date Type Department Care Team ([facility] Contact Info) Description 04/23/2025 9:30 AM EDT Office Visit [facility] MED & PEDS 505 [place], [place] [phone] Ayden Orellana MD 505 [place], [place] [phone] 05/06/2025 10:00 AM EST Telemedicine [facility] MED & PEDS 505 [place] [address] Cristal Muhammad PharmD 230 [place] [address] 06/04/2025 11:00 AM EST Clinical Support [facility] MED & PEDS 505 [place] [address] Katherine Casper, RN 505 [place] [address] documented as of this encounter Visit Diagnoses Diagnosis Status post surgical removal of nail matrix of toe of left foot documented in this encounter Care Teams Package Collector Relationship Specialty Start Date End Date Joyce Tapia MD 230 [place] [address] PCP - General Family Medicine 06/19/12 Cristal Muhammad, Deonte [address] [place] [address] Pharmacist Pharmacy 08/07/24 documented as of this encounter
--- OUTSIDE RECORDS SUMMARY | 2025-04-17 16:21 | XMS_ITS | Encounter Summary ---
Author Organization [employer] Address 75 [facility] 7t [place] [address] Care Team Providers Care Safety Deposit Supervisor Name Role Phone Joyce Tapia MD Primary Care Provider [phone] Cristal Muhammad PharmD Unavailable [phone] Reason for Visit * Reason Comments Med Refill Encounter Details Date Type Department Care Team (Late st Contact Info) Description 10/25/2022 Refill [facility] MED & PEDS [address] [place] [address] Jenny Schmidt MD 505 [place] [address] Status post surgical removal of nail matrix [...] [facility] [address] [place] [address] Ayden Orellana MD 505 [place] [address] 05/06/2025 10:00 AM EST Telemedicine [facility] MED & PEDS [address] [place] [address] Cristal Muhammad PharmD 230 [place] [address] 06/04/2025 11:00 AM EST Clinical Support [facility] MED & PEDS [address] [place] [address] Katherine Casper RN 505 [place] [address] documented as of this encounter Visit Diagnoses Diagnosis Status post surgical removal of nail matrix of toe of left foot documented in this encounter Care Teams Safety Deposit Supervisor Relationship Specialty Start Date End Date Joyce Tapia MD 230 [place] [address] PCP - General Family Medicine 06/19/12 Cristal Muhammad, Deonte [address] [place] [address] Pharmacist Pharmacy 08/07/24 documented as of this encounter
--- OUTSIDE RECORDS SUMMARY | 2025-04-17 16:21 | XMS_ITS | Encounter Summary ---
Author Organization [employer] Address 75 [facility] 7t [place] [address] Care Team Providers Care Wool Shearing Supervisor Name Role Phone Joyce Tapia MD Primary Care Provider Cristal Muhammad PharmD Unavailable [phone] Reason for Visit * Reason Comments Med Refill Encounter Details Date Type Department Care Team ([facility] Contact Info) Description 03/27/2025 Refill [facility] MED & PEDS 505 [place], [place] [phone] Joyce Tapia MD 505 [place] [address] Pain Social History Tobacco Use Types Packs/Day [...] Upcoming Encounters Date Type Department Care Team ([facility] st Contact Info) Description 04/23/2025 9:30 AM EDT Office Visit [facility] MED & PEDS 505 [place] [address] Ayden Orellana MD 505 [place] [address] 05/06/2025 10:00 AM EST Telemedicine [facility] MED & PEDS 505 [place] [address] Cristal Muhammad, PharmD 230 [place] [address] 06/04/2025 11:00 AM EST Clinical Support [facility] MED & PEDS 505 [place] [address] Katherine Casper, MAKEDA 505 [place] [address] documented as of this encounter Visit Diagnoses Diagnosis Pain Generalized pain documented in this encounter Additional Health Concerns Assessment Noted Time PHQ-9 Depression Total Score: 7 09/15/19 25 9:02 AM EDT documented as of this encounter Care Teams Wool Shearing Supervisor Relationship Specialty Start Date End Date Joyce Tapia MD 230 [place] [address] PCP - General Family Medicine 06/19/12 Cristal Muhammad, BobD 230 [place] [address] Pharmacist Pharmacy 08/07/24 documented as of this encounter
--- OUTSIDE RECORDS SUMMARY | 2025-04-17 16:21 | XMS_ITS | Encounter Summary ---
Author Organization [employer] Address 75 [facility] 7t [place] [address] Care Team Providers Care Dulser Name Role Phone Joyce Tapia MD Primary Care Provider [phone] Cristal Muhammad PharmD Unavailable [phone] Reason for Visit * Reason Onset Date Comments Medication Question 12/11/2024 Encounter Details Date Type Department Care Team ([facility] st Contact Info) Description 12/11/2024 Telephone [facility] MEDICINE [address] [place], [place] [phone] Joyce Tapia MD [address] [place], [place] [phone] Medication Question Social History Tobacco Use Types [...] have dosage increased. Please contact pt at [phone]. documented in this encounter Plan of Treatment Upcoming Encounters Date Type Department Care Team ([facility] st Contact Info) Description 04/23/2025 9:30 AM EDT Office Visit [facility] MED & PEDS 505 [place] [address] Ayden Orellana MD 505 [place] [address] 05/06/2025 10:00 AM EST Telemedicine [facility] MED & PEDS 505 [place] [address] Cristal Muhammad, PharmD 230 [place] [address] 06/04/2025 11:00 AM EST Clinical Support [facility] MED & PEDS [address] [place] [address] Katherine Casper, RN 505 [place] [address] documented as of this encounter Visit Diagnoses Not on filedocumented in this encounter Additional Health Concerns Assessment Noted Time PHQ-9 Depression Total Score: 7 09/15/19 9:02 AM EDT documented as of this encounter Care Teams Dulser Relationship Specialty Start Date End Date Joyce Tapia MD 230 [place] [address] PCP - General Family Medicine 06/19/12 Cristal Muhammad, Deonte 230 [place] [address] Pharmacist Pharmacy 08/07/24 documented as of this encounter
--- OUTSIDE RECORDS SUMMARY | 2025-04-17 16:21 | XMS_ITS | Encounter Summary ---
Author Organization [employer] Address 75 [facility] 7t [place] [address] Care Team Providers Care Personnel Technician Name Role Phone Joyce Tapia MD Primary Care Provider [phone] Cristal Muhammad PharmD Unavailable [phone] Reason for Visit * Reason Onset Date Comments Med Refill 05/28/2024 Encounter Details Date Type Department Care Team ([facility] st Contact Info) Description 05/28/2024 Refill [facility] PEDS 505 [place] [address] Joyce Tapia MD 505 [place] [address] Status post surgical removal of nail matrix [...] 04/23/2025 9:30 AM EDT Office Visit [facility] MED [facility] PEDS 505 [place] [address] Ayden Orellana MD 505 [place] [address] 05/06/2025 10:00 AM EST Telemedicine [facility] MED [facility]ED[facility] 505 [place] [address] Cristal Muhammad PharmD 230 [place] [address] 06/04/2025 11:00 AM EST Clinical Support [facility] MED [facility]ED[facility] 505 [place] [address] Katherine Casper, MAKEDA 505 [place] [address] documented as of this encounter Visit Diagnoses Diagnosis Status post surgical removal of nail matrix of toe of left foot documented in this encounter Care Teams Personnel Technician Relationship Specialty Start Date End Date Joyce Tapia MD 230 [place] [address] PCP - General Family Medicine 06/19/12 Cristal Muhammad PharmD 230 [place] [address] Pharmacist Pharmacy 08/07/24 documented as of this encounter
--- OUTSIDE RECORDS SUMMARY | 2025-04-17 16:21 | XMS_ITS | Encounter Summary ---
Author Organization [employer] Address 75 [facility] 7t [place] [address] Care Team Providers Care Physical Plant Manager Name Role Phone Joyce Tapia MD Primary Care Provider [phone] Cristal Muhammad PharmD Unavailable [phone] Reason for Visit * Reason Onset Date Comments Med Refill 04/05/2024 Encounter Details Date Type Department Care Team ([facility] st Contact Info) Description 04/05/2024 Refill [facility] MED & PEDS 505 [place] [address] Joyce Tapia MD 505 [place] [address] Status post surgical removal of nail matrix [...] 9:30 AM EDT Office Visit [facility] MED & PEDS [address] [place] [address] Ayden Orellana MD 505 [place] [address] 05/06/2025 10:00 AM EST Telemedicine [facility] MED [facility] PED[facility] 505 [place] [address] Cristal Muhammad PharmD 230 [place] [address] 06/04/2025 11:00 AM EST Clinical Support [facility] MED & PED[facility] 505 [place] [address] Katherine Casper, MAKEDA 505 [place] [address] documented as of this encounter Visit Diagnoses Diagnosis Status post surgical removal of nail matrix of toe of left foot documented in this encounter Care Teams Physical Plant Manager Relationship Specialty Start Date End Date Joyce Tapia MD 230 [place] [address] PCP - General Family Medicine 06/19/12 Cristal Muhammad PharmD [address] [place] [address] Pharmacist Pharmacy 08/07/24 documented as of this encounter
--- OUTSIDE RECORDS SUMMARY | 2025-04-17 16:21 | XMS_ITS | Encounter Summary ---
Author Organization [employer] Address 75 [facility] 7t [place] [address] Care Team Providers Care Development Technical Lead Name Role Phone Joyce Tapia MD Primary Care Provider [phone] Cristal Muhammad PharmD Unavailable [phone] Reason for Visit * Reason Onset Date Comments Med Refill 03/24/2025 Encounter Details Date Type Department Care Team ([facility] Contact Info) Description 03/24/2025 Refill [facility] MED & PEDS [address] [place] [address] Ayden Orellana MD 505 [place] [address] Wheezing Social History Tobacco Use Types Packs/Day Years [...] [facility] [address] [place] [address] Ayden Orellana MD 505 [place] [address] 05/06/2025 10:00 AM EST Telemedicine [facility] MED & PEDS [address] [place] [address] Cristal Muhammad, PharmD 230 [place] [address] 06/04/2025 11:00 AM EST Clinical Support [facility] MED & PEDS [address] [place] [address] Katherine Casper RN 505 [place] [address] documented as of this encounter Visit Diagnoses Diagnosis Wheezing documented in this encounter Additional Health Concerns Assessment Noted Time PHQ-9 Depression Total Score: 7 09/15/19 25 9:02 AM EDT documented as of this encounter Care Teams Development Technical Lead Relationship Specialty Start Date End Date Joyce Tapia MD 230 [place] [address] PCP - General Family Medicine 06/19/12 Cristal Muhammad, BobD 230 [place] [address] Pharmacist Pharmacy 08/07/24 documented as of this encounter
--- OUTSIDE RECORDS SUMMARY | 2025-04-17 16:21 | XMS_ITS | Encounter Summary ---
Author Organization [email or web address] Address 75 [facility] 7t [place] [address] Care Team Providers Care Industrial Roofer Helper Name Role Phone Joyce Tapia MD Primary Care Provider [phone] Cristal Muhammad PharmD Unavailable [phone] Reason for Visit * Reason Onset Date Comments Med Refill 02/28/2024 Encounter Details Date Type Department Care Team ([facility] st Contact Info) Description 02/28/[address] [facility] MEDICINE 230 [place], [place] [phone] Joyce Tapia MD [address] [place], [place] [phone] Med Refill Social History Tobacco Use Types [...] immediate release tablet To be sent to: [facility] - [address] documented in this encounter Plan of Treatment Upcoming Encounters Date Type Department Care Team ([facility] st Contact Info) Description 04/23/2025 9:30 AM EDT Office Visit [facility] MED & PEDS 505 [place] [address] Ayden Orellana MD 505 [place] [address] 05/06/2025 10:00 AM EST Telemedicine [facility] MED & PEDS [address] [place] [address] Cristal Muhammad, PharmD 230 [place] [address] 06/04/2025 11:00 AM EST Clinical Support [facility] MED & PEDS 505 [place] [address] Katherine Casper RN 505 [place] [address] documented as of this encounter Visit Diagnoses Not on filedocumented in this encounter Care Teams Industrial Roofer Helper Relationship Specialty Start Date End Date Joyce Tapia MD 230 [place] [address] PCP - General Family Medicine 06/19/12 Cristal Muhammad PharmD 230 [place] [address] Pharmacist Pharmacy 08/07/24 documented as of this encounter
--- OUTSIDE RECORDS SUMMARY | 2025-04-17 16:21 | XMS_ITS | Encounter Summary ---
Author Organization [employer] Address 75 [facility] 7t [place] [address] Care Team Providers Care Accounts Receivable Bookkeeper Name Role Phone Joyce Tapia MD Primary Care Provider [phone] Cristal Muhammad PharmD Unavailable [phone] Encounter Details Date Type Department Care Team ([facility] Contact Info) Description 09/27/2022 Orders Only [facility] MEDICINE 230 [place], [place] [phone] Comfort Estrada LPN Social History Tobacco Use [...] Description 04/23/2025 9:30 AM EDT Office Visit [facility] MED & PEDS 505 [place] [address] Ayden Orellana MD 505 [place], [place] [phone] 05/06/2025 10:00 AM EST Telemedicine [facility] MED & PEDS 505 [place] [address] Cristal Muhammad PharmD 230 [place] [address] 06/04/2025 11:00 AM EST Clinical Support [facility] MED & PEDS 505 [place] [address] Katherine Casper, MAKEDA 505 [place] [address] documented as of this encounter Visit Diagnoses Not on filedocumented in this encounter Care Teams Accounts Receivable Bookkeeper Relationship Specialty Start Date End Date Joyce Tapia MD [address] [place] [address] PCP - General Family Medicine 06/19/12 Cristal Muhammad, Deonte [address] [place] [address] Pharmacist Pharmacy 08/07/24 documented as of this encounter
--- OUTSIDE RECORDS SUMMARY | 2025-04-17 16:21 | XMS_ITS | Encounter Summary ---
Author Organization [employer] Address 75 [facility] 7t [place] [address] Care Team Providers Care Retort Operator Name Role Phone Joyce Tapia MD Primary Care Provider [phone] Cristal Muhammad PharmD Unavailable [phone] Encounter Details Date Type Department Care Team ([facility] Contact Info) Description 05/24/2023 Abstract [facility] MEDICINE 230 [place] [address] Zohra Benavidez Social History Tobacco Use Types [...] Description 04/23/2025 9:30 AM EDT Office Visit [facility] MED & PEDS 505 [place] [address] Ayden Orellana MD 505 [place] [address] 05/06/2025 10:00 AM EST Telemedicine [facility] MED & PEDS 505 [place] [address] Cristal Muhammad, PharmD 230 [place] [address] 06/04/2025 11:00 AM EST Clinical Support [facility] CHC MED & PEDS 505 [place] [address] Katherine Casper, RN 505 [place], [place] documented as of this encounter Procedures Procedure Name Priority Date/Time Associated Diagnosis Comments COLONOSCOPY Routine 02/20/2015 documented in this encounter Results * Colonoscopy (02/20/2015) Colonoscopy Normal Normal Narrative Zohra Benavidez - 02/20/2015 Repeat in 10 year Historical Provider HEALTH MAINTENANCE Final Result documented in this encounter Visit Diagnoses Not on filedocumented in this encounter Care Teams Retort Operator Relationship Specialty Start Date End Date Joyce Tapia MD [address] [place] [address] PCP - General Family Medicine 06/19/12 Cristal Muhammad, PharmD [address] [place] [address] Pharmacist Pharmacy 08/07/24 documented as of this encounter
--- OUTSIDE RECORDS SUMMARY | 2025-04-17 16:21 | XMS_ITS | Encounter Summary ---
Author Organization [employer] Address 75 [facility] 7t [place] [address] Care Team Providers Care Marketing Administrator Name Role Phone Joyce Tapia MD Primary Care Provider [phone] Cristal Muhammad PharmD Unavailable [phone] Reason for Visit * Reason Onset Date Comments Med Refill 08/01/2024 Encounter Details Date Type Department Care Team (Late st Contact Info) Description 08/01/2024 Refill [facility] MEDICINE 230 [place] [address] Emerson Keith MD 505 [place], [place] [phone] Status post surgical removal of nail matrix [...] Description 04/23/2025 9:30 AM EDT Office Visit [facility] MED & PEDS 505 [place] [address] Ayden Orellana MD 505 [place] [address] 05/06/2025 10:00 AM EST Telemedicine [facility] MED & PEDS 505 [place] [address] Cristal Muhammad PharmD 230 [place] [address] 06/04/2025 11:00 AM EST Clinical Support [facility] MED & PEDS 505 [place] [address] Katherine Casper, MAKEDA 505 [place] [address] documented as of this encounter Visit Diagnoses Diagnosis Status post surgical removal of nail matrix of toe of left foot documented in this encounter Care Teams Marketing Administrator Relationship Specialty Start Date End Date Joyce Tapia MD 230 [place] [address] PCP - General Family Medicine 06/19/12 Cristal Muhammad PharmD 230 [place] [address] Pharmacist Pharmacy 08/07/24 documented as of this encounter
--- OUTSIDE RECORDS SUMMARY | 2025-04-17 16:21 | XMS_ITS | Encounter Summary ---
Author Organization [employer] Address 75 [facility] 7t [place] [address] Care Team Providers Care Legal Officer Name Role Phone Joyce Tapia MD Primary Care Provider [phone] Cristal Muhammad PharmD Unavailable [phone] Reason for Visit * Reason Onset Date Comments Med Refill 12/02/2024 Encounter Details Date Type Department Care Team (Late st Contact Info) Description 12/02/2024 Refill [facility] MEDICINE 230 [place] [address] Joyce Tapia MD [address] [place], [place] [phone] Status post surgical removal of nail matrix [...] [facility] 505 [place] [address] Ayden Orellana MD 505 [place] [address] 05/06/2025 10:00 AM EST Telemedicine [facility] MED & PEDS 505 [place] [address] Cristal Muhammad, BobD 230 [place] [address] 06/04/2025 11:00 AM EST Clinical Support [facility] MED & PEDS 505 [place] [address] Katherine Casper, MAKEDA 505 [place] [address] documented as of this encounter Visit Diagnoses Diagnosis Status post surgical removal of nail matrix of toe of left foot documented in this encounter Additional Health Concerns Assessment Noted Time PHQ-9 Depression Total Score: 7 09/15/19 9:02 AM EDT documented as of this encounter Care Teams Legal Officer Relationship Specialty Start Date End Date Joyce Tapia MD [address] [place] [address] PCP - General Family Medicine 06/19/12 Cristal Muhammad PharmD [address] [place] [address] Pharmacist Pharmacy 08/07/24 documented as of this encounter
--- OUTSIDE RECORDS SUMMARY | 2025-04-17 16:21 | XMS_ITS | Encounter Summary ---
Author Organization [employer] Address [address] [place] [address] 7 [place] [address] Care Team Providers Care Customer Resolution Specialist Name Role Phone Joyce Tapia MD Primary Care Provider [phone] Cristal Muhammad PharmD Unavailable [phone] Reason for Visit * Reason Comments Med Refill Encounter Details Date Type Department Care Team ([facility] Contact Info) Description 06/12/2023 Refill [facility] MED & PEDS 505 [place] [address] Christy Ray MD 505 [place] [address] Muscle spasm Social History Tobacco Use Types [...] Upcoming Encounters Date Type Department Care Team ([facility] Contact Info) Description 04/23/2025 9:30 AM EDT Office Visit [facility] MED & PEDS [address] [place] [address] Ayden Orellana MD 505 [place] [address] 05/06/2025 10:00 AM EST Telemedicine [facility] MED & PEDS 505 [place] [address] Cristal Muhammad PharmD 230 [place] [address] 06/04/2025 11:00 AM EST Clinical Support [facility] MED & PEDS [address] [place] [address] Katherine Casper, MAKEDA 505 [place] [address] documented as of this encounter Visit Diagnoses Diagnosis Muscle spasm Spasm of muscle documented in this encounter Care Teams Customer Resolution Specialist Relationship Specialty Start Date End Date Joyce Tapia MD [address] [place] [address] PCP - General Family Medicine 06/19/12 Cristal Muhammad PharmD [address] [place] [address] Pharmacist Pharmacy 08/07/24 documented as of this encounter
--- OUTSIDE RECORDS SUMMARY | 2025-04-17 16:21 | XMS_ITS | Encounter Summary ---
Author Organization [email or web address] Address 75 [facility] 7t [place] [address] Care Team Providers Care Teletypewriter Installer Name Role Phone Joyce Tapia MD Primary Care Provider [phone] Cristal Muhammad PharmD Unavailable [phone] Reason for Visit * Reason Onset Date Comments Med Refill 05/21/2024 Encounter Details Date Type Department Care Team ([facility] Contact Info) Description 05/21/2024 Refill [facility] MED & PEDS [address] [place] [address] Joyce Tapia MD 505 [place] [address] Social History Tobacco Use Types Packs/Day Years [...] [facility] MED & PEDS [address] [place] [address] Ayden Orellana MD 505 [place] [address] 05/06/2025 10:00 AM EST Telemedicine [facility] MED & PEDS [address] [place] [address] Cristal Muhammad PharmD 230 [place] [address] 06/04/2025 11:00 AM EST Clinical Support [facility] MED & PEDS [address] [place] [address] Katherine Casper, MAKEDA 505 [place] [address] documented as of this encounter Visit Diagnoses Not on filedocumented in this encounter Care Teams Teletypewriter Installer Relationship Specialty Start Date End Date Joyce Tapia MD [address] [place] [address] PCP - General Family Medicine 06/19/12 Cristal Muhammad PharmD [address] [place] [address] Pharmacist Pharmacy 08/07/24 documented as of this encounter
--- OUTSIDE RECORDS SUMMARY | 2025-04-17 16:21 | XMS_ITS | Encounter Summary ---
Author Organization [employer] Address [address] [place] [address] 7 [place] [address] Care Team Providers Care Portable Pinch Riveter Name Role Phone Joyce Tapia MD Primary Care Provider [phone] Cristal Muhammad PharmD Unavailable [phone] Reason for Visit * Reason Comments Med Refill Encounter Details Date Type Department Care Team ([facility] Contact Info) Description 10/11/2023 Refill [facility] MEDICINE 230 [place], [place] [phone] Ayden Orellana MD 505 [place], [place] [phone] Status post surgical removal of nail matrix [...] Upcoming Encounters Date Type Department Care Team ([facility] Contact Info) Description 04/23/2025 9:30 AM EDT Office Visit [facility] MED & PEDS 505 [place], [place] [phone] Ayden Orellana MD 505 [place], [place] [phone] 05/06/2025 10:00 AM EST Telemedicine [facility] MED & PEDS 505 [place] [address] Cristal Muhammad PharmD 230 [place] [address] 06/04/2025 11:00 AM EST Clinical Support [facility] MED & PEDS 505 [place] [address] Katherine Casper, MAKEDA 505 [place] [address] documented as of this encounter Visit Diagnoses Diagnosis Status post surgical removal of nail matrix of toe of left foot documented in this encounter Care Teams Portable Pinch Riveter Relationship Specialty Start Date End Date Joyce Tapia MD 230 [place] [address] PCP - General Family Medicine 06/19/12 Cristal Muhammad, Deonte [address] [place] [address] Pharmacist Pharmacy 08/07/24 documented as of this encounter
--- OUTSIDE RECORDS SUMMARY | 2025-04-17 16:21 | XMS_ITS | Encounter Summary ---
Author Organization [employer] Address 75 [facility] 7t [place] [address] Care Team Providers Care Can Repairer Name Role Phone Joyce Tapia MD Primary Care Provider [phone] Cristal Muhammad PharmD Unavailable [phone] Reason for Visit * Reason Onset Date Comments Med Refill 10/25/2024 Encounter Details Date Type Department Care Team ([facility] st Contact Info) Description 10/25/2024 Refill [facility] MED & PEDS 505 [place] [address] Joyce Tapia MD 505 [place] [address] Social History Tobacco Use Types Packs/Day Years [...] Description 04/23/2025 9:30 AM EDT Office Visit [facility] MED & PEDS 505 [place] [address] Ayden Orellana MD 505 [place] [address] 05/06/2025 10:00 AM EST Telemedicine [facility] MED & PEDS 505 [place] [address] Cristal Muhammad, PharmD 230 [place] [address] 06/04/2025 11:00 AM EST Clinical Support [facility] MED & PEDS 505 [place] [address] Katherine Casper RN 505 [place] [address] documented as of this encounter Visit Diagnoses Not on filedocumented in this encounter Additional Health Concerns Assessment Noted Time PHQ-9 Depression Total Score: 7 09/15/19 25 9:02 AM EDT documented as of this encounter Care Teams Can Repairer Relationship Specialty Start Date End Date Joyce Tapia MD 230 [place] [address] PCP - General Family Medicine 06/19/12 Cristal Muhammad, BobD [address] [place] [address] Pharmacist Pharmacy 08/07/24 documented as of this encounter
--- OUTSIDE RECORDS SUMMARY | 2025-04-17 16:21 | XMS_ITS | Encounter Summary ---
Author Organization [employer] Address 75 [facility] 7t [place] [address] Care Team Providers Care Cooker Soda Name Role Phone Joyce Tapia MD Primary Care Provider [phone] Cristal Muhammad PharmD Unavailable [phone] Reason for Visit * Reason Onset Date Comments Med Refill 07/27/2024 Encounter Details Date Type Department Care Team (Late st Contact Info) Description 07/27/2024 Refill [facility] MEDICINE 230 [place] [address] Emerson Keith MD 505 [place], [place] [phone] Status post surgical removal of nail matrix [...] 04/23/2025 9:30 AM EDT Office Visit [facility] MED & PEDS 505 [place] [address] Ayden Orellana MD 505 [place] [address] 05/06/2025 10:00 AM EST Telemedicine [facility] MED & PEDS [address] [place] [address] Cristal Muhammad PharmD 230 [place] [address] 06/04/2025 11:00 AM EST Clinical Support [facility] MED & PEDS [address] [place] [address] Katherine Casper, MAKEDA 505 [place] [address] documented as of this encounter Visit Diagnoses Diagnosis Status post surgical removal of nail matrix of toe of left foot documented in this encounter Care Teams Cooker Soda Relationship Specialty Start Date End Date Joyce Tapia MD 230 [place] [address] PCP - General Family Medicine 06/19/12 Cristal Muhammad PharmD 230 [place] [address] Pharmacist Pharmacy 08/07/24 documented as of this encounter
--- OUTSIDE RECORDS SUMMARY | 2025-04-17 16:21 | XMS_ITS | Encounter Summary ---
Author Organization [employer] Address [address] [place] [address] 7 [place] [address] Care Team Providers Care Senior Financial Accountant Name Role Phone Joyce Tapia MD Primary Care Provider Cristal Muhammad PharmD Unavailable [phone] Reason for Visit * Reason Comments Med Refill Encounter Details Date Type Department Care Team (Late Contact Info) Description 07/29/2023 Refill [facility] [address] [place], [place] [phone] Joyce Tapia MD [address] [place], [place] [phone] Status post surgical removal of nail matrix [...] Description 04/23/2025 9:30 AM EDT Office Visit [facility] [address] [place], [place] [phone] Ayden Orellana MD 505 [place], [place] [phone] 05/06/2025 10:00 AM EST Telemedicine [facility] MED [facility] PED[facility] [address] [place] [address] Cristal Muhammad PharmD 230 [place] [address] 06/04/2025 11:00 AM EST Clinical Support [facility] PED[facility] [address] [place], [place] [phone] Katherine Casper, RN [address] [place], [place] documented as of this encounter Visit Diagnoses Diagnosis Status post surgical removal of nail matrix of toe of left foot documented in this encounter Care Teams Senior Financial Accountant Relationship Specialty Start Date End Date Joyce Tapia MD [address] [place] [address] PCP - General Family Medicine 06/19/12 Cristal Muhammad, BobD [address] [place] [address] Pharmacist Pharmacy 08/07/24 documented as of this encounter
--- OUTSIDE RECORDS SUMMARY | 2025-04-17 16:21 | XMS_ITS | Encounter Summary ---
Author Organization [employer] Address [address] [facility] 7 [place] [address] Care Team Providers Care Portfolio Mgr Name Role Phone Joyce Tapia MD Primary Care Provider [phone] Cristal Muhammad PharmD Unavailable [phone] Reason for Visit * Reason Comments Med Refill Encounter Details Date Type Department Care Team (Late Contact Info) Description 06/06/2023 Refill [facility] MED & PEDS [address] [place], [place] [phone] Ev Lewis, ANP 230 [place], [place] [phone] Status post surgical removal of nail matrix [...] Upcoming Encounters Date Type Department Care Team ([facility] Contact Info) Description 04/23/2025 9:30 AM EDT Office Visit [facility] MED [facility]ED[facility] [address] [place], [place] [phone] Ayden Orellana MD 505 [place], [place] [phone] 05/06/2025 10:00 AM EST Telemedicine [facility] MED [facility] PED[facility] [address] [place] [address] Cristal Muhammad PharmD 230 [place] [address] 06/04/2025 11:00 AM EST Clinical Support [facility] [address] [place] [address] Katherine Casper, RN 505 [place] [address] documented as of this encounter Visit Diagnoses Diagnosis Status post surgical removal of nail matrix of toe of left foot documented in this encounter Care Teams Portfolio Mgr Relationship Specialty Start Date End Date Joyce Tapia MD 230 [place] [address] PCP - General Family Medicine 06/19/12 Cristal Muhammad, Deonte [address] [place] [address] Pharmacist Pharmacy 08/07/24 documented as of this encounter
--- OUTSIDE RECORDS SUMMARY | 2025-04-17 16:21 | XMS_ITS | Encounter Summary ---
Author Organization [employer] Address 75 [facility] 7t [place] [address] Care Team Providers Care It Solutions Architect Name Role Phone Joyce Tapia MD Primary Care Provider [phone] Cristal Muhammad PharmD Unavailable [phone] Reason for Visit * Reason Onset Date Comments Med Refill 06/05/2024 Encounter Details Date Type Department Care Team (Late st Contact Info) Description 06/05/2024 Refill [facility] 230 [place] [address] Joyce Tapia MD [address] [place], [place] [phone] Status post surgical removal of nail matrix [...] [facility] MED & PEDS 505 [place] [address] Ayden Orellana MD 505 [place] [address] 05/06/2025 10:00 AM EST Telemedicine [facility] MED & PEDS [address] [place] [address] Cristal Muhammad PharmD 230 [place] [address] 06/04/2025 11:00 AM EST Clinical Support [facility] MED & PED[facility] 505 [place] [address] Katherine Casper RN 505 [place] [address] documented as of this encounter Visit Diagnoses Diagnosis Status post surgical removal of nail matrix of toe of left foot documented in this encounter Care Teams It Solutions Architect Relationship Specialty Start Date End Date Joyce Tapia MD [address] [place] [address] PCP - General Family Medicine 06/19/12 Cristal Muhammad PharmD 230 [place] [address] Pharmacist Pharmacy 08/07/24 documented as of this encounter
--- OUTSIDE RECORDS SUMMARY | 2025-04-17 16:21 | XMS_ITS | Encounter Summary ---
Author Organization [employer] Address [address] [facility] 7t [place] [address] Care Team Providers Care Flight Information Expediter Name Role Phone Joyce Tapia MD Primary Care Provider [phone] Cristal Muhammad PharmD Unavailable [phone] Encounter Details Date Type Department Care Team ([facility] Contact Info) Description 10/26/2022 Orders Only [facility]S 505 [place], [place] [phone] Emerson Keith MD 505 [place], [place] [phone] Social History Tobacco Use Types Packs/Day Years [...] Upcoming Encounters Date Type Department Care Team ([facility] Contact Info) Description 04/23/2025 9:30 AM EDT Office Visit [facility] 505 [place] [address] Ayden Orellana MD 505 [place] [address] 05/06/2025 10:00 AM EST Telemedicine [facility] MED & PEDS 505 [place] [address] Cristal Muhammad PharmD 230 [place] [address] 06/04/2025 11:00 AM EST Clinical Support [facility] MED & PEDS 505 [place] [address] Katherine Casper RN 505 [place] [address] documented as of this encounter Visit Diagnoses Not on filedocumented in this encounter Care Teams Flight Information Expediter Relationship Specialty Start Date End Date Joyce Tapia MD [address] [place] [address] PCP - General Family Medicine 06/19/12 Cristal Muhammad PharmD [address] [place] [address] Pharmacist Pharmacy 08/07/24 documented as of this encounter
--- OUTSIDE RECORDS SUMMARY | 2025-04-17 16:21 | XMS_ITS | Encounter Summary ---
Author Organization [employer] Address [address] [facility] 7t [place] [address] Care Team Providers Care Supervisor Publications Production Name Role Phone Joyce Tapia MD Primary Care Provider [phone] Cristal Muhammad PharmD Unavailable [phone] Reason for Visit * Reason Onset Date Comments Med Refill 02/25/2025 Encounter Details Date Type Department Care Team ([facility] st Contact Info) Description 02/25/2025 Refill [facility] MED & PEDS 505 [place] [address] Ayden Orellana MD 505 [place] [address] Status post surgical removal of nail matrix [...] Office Visit [facility] P[facility] [address] [place] [address] Ayden Orellana MD 505 [place] [address] 05/06/2025 10:00 AM EST Telemedicine [facility] [address] [place] [address] Cristal Muhammad, PharmD 230 [place] [address] 06/04/2025 11:00 AM EST Clinical Support [facility] [address] [place] [address] Katherine Casper RN 505 [place] [address] documented as of this encounter Visit Diagnoses Diagnosis Status post surgical removal of nail matrix of toe of left foot documented in this encounter Additional Health Concerns Assessment Noted Time PHQ-9 Depression Total Score: 7 09/15/19 9:02 AM EDT documented as of this encounter Care Teams Supervisor Publications Production Relationship Specialty Start Date End Date Joyce Tapia MD 230 [place] [address] PCP - General Family Medicine 06/19/12 Cristal Muhammad PharmD 230 [place] [address] Pharmacist Pharmacy 08/07/24 documented as of this encounter
--- OUTSIDE RECORDS SUMMARY | 2025-04-17 16:21 | XMS_ITS | Encounter Summary ---
Author Organization [employer] Address [address] [facility] [address] 7[address] [place] [address] Care Team Providers Care Shipping And Receiving Specialist Name Role Phone Joyce Tapia MD Primary Care Provider [phone] Cristal Muhammad PharmD Unavailable [phone] Reason for Visit * Reason Onset Date Comments Med Refill 02/10/2025 Encounter Details Date Type Department Care Team (Late st Contact Info) Description 02/10/2025 Refill [facility] 230 [place], [place] [phone] Myra Connors MD 230 [place], [place] [phone] Candidiasis Social History Tobacco Use Types Packs/Day [...] [facility] MED [facility]ED[facility] [address] [place] [address] Ayden Orellana MD 505 [place] [address] 05/06/2025 10:00 AM EST Telemedicine [facility] MED [facility] P[facility] [address] [place] [address] Cristal Muhammad, PharmD 230 [place] [address] 06/04/2025 11:00 AM EST Clinical Support [facility] MED [facility] P[facility] [address] [place] [address] Katherine Casper RN 505 [place] [address] documented as of this encounter Visit Diagnoses Diagnosis Candidiasis documented in this encounter Additional Health Concerns Assessment Noted Time PHQ-9 Depression Total Score: 7 09/15/19 25 9:02 AM EDT documented as of this encounter Care Teams Shipping And Receiving Specialist Relationship Specialty Start Date End Date Joyce Tapia MD 230 [place] [address] PCP - General Family Medicine 06/19/12 Cristal Muhammad, BobD [address] [place] [address] Pharmacist Pharmacy 08/07/24 documented as of this encounter
--- OUTSIDE RECORDS SUMMARY | 2025-04-17 16:21 | XMS_ITS | Encounter Summary ---
Author Organization [employer] Address 75 [facility] 7t [place] [address] Care Team Providers Care Supply Manager Name Role Phone Joyce Tapia MD Primary Care Provider [phone] Cristal Muhammad PharmD Unavailable [phone] Reason for Visit * Reason Comments Med Refill Encounter Details Date Type Department Care Team ([facility] Contact Info) Description 12/17/2024 Refill [facility] [address] [place] [address] Kassi Johnston FNP [address] [place], [place] [phone] Social History Tobacco Use Types Packs/Day Years [...] Upcoming Encounters Date Type Department Care Team ([facility] st Contact Info) Description 04/23/2025 9:30 AM EDT Office Visit [facility] MED & PEDS 505 [place] [address] Ayden Orellana MD 505 [place] [address] 05/06/2025 10:00 AM EST Telemedicine [facility] MED & PEDS [address] [place] [address] Cristal Muhammad, PharmD 230 [place] [address] 06/04/2025 11:00 AM EST Clinical Support [facility] MED & PED[facility] [address] [place] [address] Katherine Casper, MAKEDA 505 [place] [address] documented as of this encounter Visit Diagnoses Not on filedocumented in this encounter Additional Health Concerns Assessment Noted Time PHQ-9 Depression Total Score: 7 09/15/19 25 9:02 AM EDT documented as of this encounter Care Teams Supply Manager Relationship Specialty Start Date End Date Joyce Tapia MD [address] [place] [address] PCP - General Family Medicine 06/19/12 Cristal Muhammad, BobD [address] [place] [address] Pharmacist Pharmacy 08/07/24 documented as of this encounter
== END 2025-04-17 12:53 | disposition home or self-care (01) ==
LOC: HO.HOSX 12:52
DX: M67.431 Ganglion, right wrist (principal); M25.641 Stiffness of right hand, not elsewhere classified
CPT/HCPCS: 73110; 99212

== ENCOUNTER 2025-04-17 13:00 | Outpatient (AMB) | payer MEDICAID, SELFPAY ==
--- NOTE | 2025-04-17 13:21 | A.OFFVIS_ITS ---
Vital Signs 04/17/25 13:28 Height 5 ft 3 in Weight 154 lb BMI 27.3 Handedness Right Intake Visit Reasons: Newprob-right wrist/*bone sticking out* Intake Note: Nayely is a 64 year old right hand dominant woman who presents today for a new problem visit for evaluation of a bone protruding out of her right wrist. Patient states she attended OT and is still unable to make a full closed fist. 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 Patient wants to have another surgery due to increase of a lot of pain. She is unable to get any daily task done due to her symptoms in the right hand. She has not been able to return to work due to the job not allowing it cause of her symptoms. She can not make a full closed fist. Expresses her blood sugar has jo dropping constantly to ~50 because of the amount of pain she is in, this is another reason her job does not want her to return until she is better. They fear her blood sugar will drop and she will hurt herself. She is expressing she is very depressed because of the inconvenience her pain is causing her. She reports stating to the Neurologist Dr Bautista does not want to do another surgery but she is trying again, says something has to give. She can not open cans of cat food, soda, food. She says she is in school and has to speak to her computer to type because this is also painful for her. Her right hand is visibly swollen. She states OT also has concern of a bone sticking out of her right wrist on the dorsal aspect. Allergies prochlorperazine (From Compazine) Allergy (Severe, Verified 04/17/25 13:28) Seizure sulfamethoxazole (From BACTRIM) Allergy (Severe, Verified 04/17/25 13:28) BLISTERS- DELGADO - NERVE ENDINGS IN HAND/ERYTHEMA MULTIFORM trimethoprim (From BACTRIM) Allergy (Severe, Verified 04/17/25 13:28) BLISTERS- DELGADO - NERVE ENDINGS IN HAND/ERYTHEMA MULTIFORM Penicillins Allergy (Intermediate, Verified 04/17/25 13:28) HIVES latex (Latex) Allergy (Mild, Verified 04/17/25 13:28) RASH transparent dressing (Tegaderm) Adverse Reaction (Severe, Verified 04/17/25 13:28) Redness of Skin theophylline Adverse Reaction (Intermediate, Verified 04/17/25 13:28) TACHYCARDIA HPI HPI Newprob-right wrist/*bone sticking out*: Details: Nayely is a 64 year old right hand dominant woman who presents today for a new problem visit for evaluation of a bone protruding out of her right wrist. Patient states she attended OT and is still unable to make a full closed fist. 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 Patient wants to have another surgery due to increase of a lot of pain. She is unable to get any daily task done due to her symptoms in the right hand. She has not been able to return to work due to the job not allowing it cause of her symptoms. She can not make a full closed fist. Expresses her blood sugar has jo dropping constantly to ~50 because of the amount of pain she is in, this is another reason her job does not want her to return until she is better. They fear her blood sugar will drop and she will hurt herself. She is expressing she is very depressed because of the inconvenience her pain is causing her. She reports stating to the Neurologist Dr Bautista does not want to do another surgery but she is trying again, says something has to give. She can not open cans of cat food, soda, food. She says she is in school and has to speak to her computer to type because this is also painful for her. Her right hand is visibly swollen. She states OT also has concern of a bone sticking out of her right wrist on the dorsal aspect. [facility] Medical History Hidradenitis suppurativa Edema Fibromyalgia Type 2 diabetes mellitus without complications Neuropathy Abscess Abdominal pain Infection of skin due to methicillin resistant Staphylococcus aureus (MRSA) Numbness of right hand COVID-19 Sebaceous cyst Cubital tunnel syndrome on left Contusion of right ankle Numbness and tingling in left hand Left hand pain Stiffness of left hand joint Emesis Overweight (BMI 25.0-29.9) Borderline diabetes Dyslipidemia Non-toxic multinodular goiter Diabetes type 2, controlled History of restless legs syndrome Anxiety Depression High cholesterol Asthma DVT (deep venous thrombosis) GERD (gastroesophageal reflux disease) Anastomotic ulcer Surgical History Hx of colonoscopy H/O removal of cyst (02/03/23) History of removal of cyst (07/28/22) Hx of cholecystectomy History of surgery History of surgery on left wrist Hx of elbow surgery History of excision of epidermal inclusion cyst (03/23/22) Hx of excision of epidermal inclusion cyst (12/25/21) History of excision of mass (10/26/21) S/P trigger finger release History of tooth extraction Hx of hand surgery Hx of esophagogastroduodenoscopy S/P gastric bypass History of hysterectomy Family History Mother Diabetes mellitus CHF (congestive heart failure) Kidney failure Cervical cancer Brother No problems noted. Brother No problems noted. 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 Neuro: Normal sensation of the tips of all digits of the left hand at this time Vascular: Cap refill brisk Pain: Minimal tenderness to palpation about the incision site on right middle finger No tenderness to palpation directly to incision site on dorsal right wrist, however the patient reports a burning sensation when palpating adjacent to this incision site ROM: No further visible or palpable locking and catching of the right middle finger Patient reports significant discomfort at both the incision site and the dorsum of the right middle finger when attempting to make a closed fist With encouragement, patient is able to make a closed fist, but is largely unable to hold this actively, with the fingers moving approximately 1-2 cm off of the palm when released Skin: Well approximated and well healing incision sites noted of the dorsal right wrist and over the A1 palmira of the right middle finger No lacerations or abrasions. General: No ecchymosis, , drainage Psych: Appears grossly normal Affect normal Attitude cooperative Results Reviewed Results Reviewed: X-rays obtained in the office today and independently reviewed by me, Ok Brenner PA-C, demonstrate small osseous density on the ulnar aspect of the right distal radius. Assessment & Plan Assessment & Plan (1) Ganglion cyst of dorsum of right wrist: Code(s): M67.431 - Ganglion, right wrist Category: Medical (2) Stiffness of right hand joint: Code(s): M25.641 - Stiffness of right hand, not elsewhere classified Category: Medical Plan 1. Significant right wrist pain 2. Osseous density of right distal radius Patient is educated about this condition Patient is educated about the typical diagnostic and treatment course At this time, due to the patient's severe pain that she is experiencing, I feel it is most prudent to get an MRI to rule out any underlying soft tissue injury that may be causing her significant pain Patient is also provided with a Velcro wrist splint to be worn whenever her wrist is in significant pain, however this should be removed for range of motion while at rest Patient understands this is amenable to this plan Follow-up after MRI, sooner with any acute concerns Orders: Orders XR wrist RT min 3V 04/17/25 M25.531 - Pain in right wrist MR wrist RT wo con 04/17/25 M25.531 - Pain in right wrist, M25.641 - Stiffness of right hand, not elsewhere classified, M67.431 - Ganglion, right wrist, S52.501A - Unspecified fracture of the lower end of right radius, initial encounter for closed fracture Coding Level of Care Code Est Pt Level 3 (22234) Diagnoses Ganglion cyst of dorsum of right wrist M67.431 Stiffness of right hand joint M25.641
[2025-04-17 13:28] VITALS: BMI 27.3
== END 2025-04-17 13:50 | disposition home or self-care (01) ==
LOC: HO.HOS 13:00
PROVIDERS: PCP Student in an Organized Health Care Education/Training Program
DX: M67.431 Ganglion, right wrist (principal); M25.641 Stiffness of right hand, not elsewhere classified
CPT/HCPCS: 99024

== ENCOUNTER → 2025-04-17 13:13 | Outpatient (BNV) | payer MEDICAID, SELFPAY | PROVIDERS: Visit Provider Radiology Diagnostic Radiology | DX: M25.531 Pain in right wrist (principal) | CPT/HCPCS: 73110 ==

== ENCOUNTER 2025-05-04 08:56 | Emergency (ER) | payer MEDICAID, SELFPAY ==
[2025-05-04 08:59] VITALS: BP 123/69; PULSE 83; RESP 18; TEMP 36.3; O2SAT 98; BMI 27.6
--- NOTE | 2025-05-04 09:05 | ED.EXTPRO ---
HPI - Extremity Problem General Chief complaint: Extremity Injury, Upper Stated complaint: severe pain on right wrist Time Seen by Provider: 05/04/25 09:05 Source: patient Mode of arrival: ambulatory Limitations: no limitations History of Present Illness ED Provider: Dr. Mary Thomas HPI Narrative: 64-year-old female with a history of chronic wrist pain status post ganglion cyst removal in the dorsum of the right wrist presenting with continued pain in that wrist at the site of ganglion cyst removal with some associated swelling. Patient admits that she has been dealing with this pain since she had surgery at the end of January. Has been seen at her surgeon's office, Dr. Bautista, multiple times over the last several months and has an MRI scheduled in 2 weeks. Admits that her pain over the last 3 days has been ?unbearable?. States that she has been unable to handle the pain despite taking the oxycodone and gabapentin that she takes daily for chronic pain. Denies any fever or skin changes. No changes in the chronic tingling in her hand. Admits that she is unable to perform daily activities due to pain but this has been ongoing for months. No other injury or illness. Did not call her surgeon's office prior to coming to the emergency department. Related Data Home Medications ?Medication ?Instructions ?Recorded ?Confirmed hydroxyzine HCl 25 mg tablet 50 mg PO BEDTIME 06/04/20 01/18/25 sertraline 100 mg tablet 1 tab PO BEDTIME 10/20/21 01/18/25 tizanidine 4 mg tablet 1 tab PO BEDTIME PRN Pain 10/20/21 01/18/25 cyanocobalamin (vitamin B-12) 1,000 mcg PO QAM 06/03/22 01/18/25 1,000 mcg tablet metformin 500 mg tablet,extended 500 mg PO BID 06/03/22 01/18/25 release 24 hr albuterol sulfate 90 mcg/actuation 2 puff inhalation Q4-6H PRN 08/25/23 01/18/25 aerosol inhaler Shortness Of Breath Or Wheezing oxycodone 5 mg tablet 5 mg PO Q6H PRN severe pain 09/27/23 01/18/25 pramipexole 0.5 mg tablet 0.5 mg PO TID 09/27/23 01/18/25 ferrous sulfate 325 mg (65 mg 325 mg PO QAM 10/27/23 01/18/25 iron) tablet varenicline tartrate 1 mg tablet 1 mg PO BID 04/24/24 01/18/25 blood sugar diagnostic (FreeStyle #10 ea 01/10/25 01/10/25 Lite Strips) esomeprazole magnesium 20 mg 20 mg PO QAM 01/10/25 01/18/25 capsule,delayed release furosemide 20 mg tablet 10 mg PO DAILY 01/10/25 01/18/25 gabapentin 100 mg capsule 100 mg PO BID 01/10/25 01/18/25 hydrochlorothiazide 12.5 mg capsule 12.5 mg PO QAM 01/10/25 01/18/25 lancets 33 gauge (Easy Touch Twist #100 ea 01/10/25 01/10/25 Lancets) ondansetron HCl 4 mg tablet 4 mg PO Q12H PRN nausea/vomiting 01/10/25 01/18/25 pantoprazole 40 mg tablet,delayed 40 mg PO QAM 01/10/25 01/18/25 release sucralfate 1 gram tablet 1 g PO QID 01/10/25 01/18/25 zolpidem 5 mg tablet 5 mg PO BEDTIME PRN insomnia 01/10/25 01/18/25 Chantix 01/31/25 01/31/25 atorvastatin 40 mg tablet 40 mg PO BEDTIME 04/17/25 blood-glucose sensor (FreeStyle #1 ea 04/17/25 Gwendolyn 3 Plus Sensor device) linagliptin 5 mg tablet (Tradjenta) 5 mg PO DAILY 04/17/25 minocycline 100 mg capsule 100 mg PO BID 04/17/25 Previous Rx's ?Medication ?Instructions ?Recorded cholecalciferol (vitamin D3) 50 50 mcg PO DAILY #30 caps 12/15/20 mcg (2,000 unit) capsule fluticasone propionate 50 2 spray intranasal DAILY #16 grams 06/21/21 mcg/actuation nasal spray,suspension (Flonase Allergy Relief) blood-glucose meter (FreeStyle #1 ea 08/21/21 Lite Meter kit) blood sugar diagnostic (FreeStyle #150 strips 03/30/22 Lite Strips) thiamine HCl (vitamin B1) 100 mg 100 mg PO DAILY #90 tabs 06/07/22 tablet lidocaine 5 % topical patch 1 patch topical DAILY #15 ea 11/10/22 (Lidoderm) cyclobenzaprine 10 mg tablet 10 mg PO Q8H #20 tabs 01/07/23 meclizine 25 mg tablet 25 mg PO TID PRN dizziness #20 tabs 02/11/23 albuterol sulfate 1.25 mg/3 mL 1.25 mg (3 mL) inhalation QID PRN 06/11/23 solution for nebulization shortness of breath or wheezing #90 mL diclofenac sodium 1 % topical gel 2 g topical BID PRN pain (scale 07/18/23 (Aleve (diclofenac)) score 4-6) #100 grams barium sulfate 2 % (w/v) oral 450 ml PO ONCE #900 mL 07/31/24 suspension (Readi-Cat 2) hydrocodone 5 mg-acetaminophen 325 1 tab PO Q6H PRN pain #15 tabs 01/31/25 mg tablet cephalexin 500 mg capsule 500 mg PO Q8H 7 days #21 caps 02/13/25 methocarbamol 750 mg tablet 1,500 mg (2 x 750 mg) PO Q8H PRN 03/04/25 pain, moderate #24 tabs methylprednisolone 4 mg tablets in 4 mg PO QAM #21 ea 03/04/25 a dose pack (Medrol (Coleman)) diclofenac sodium 1 % topical gel 4 g topical QID #50 grams 05/04/25 Allergies Allergy/AdvReac Type Severity Reaction Status Date / Time prochlorperazine (From Allergy Severe Seizure Verified 05/04/25 09:00 Compazine) sulfamethoxazole (From Allergy Severe BLISTERS- Verified 05/04/25 09:00 BACTRIM) DELGADO - NERVE ENDINGS IN HAND/ERYTHEMA MULTIFORM trimethoprim (From BACTRIM) Allergy Severe BLISTERS- Verified 05/04/25 09:00 DELGADO - NERVE ENDINGS IN HAND/ERYTHEMA MULTIFORM Penicillins Allergy Intermediate HIVES Verified 05/04/25 09:00 latex (Latex) Allergy Mild RASH Verified 05/04/25 09:00 transparent dressing AdvReac Severe Redness of Verified 05/04/25 09:00 (Tegaderm) Skin theophylline AdvReac Intermediate TACHYCARDIA Verified 05/04/25 09:00 Review of Systems Review of Systems: as per HPI, full review of systems performed and negative but for the above mentioned pertinent positives and negatives. [facility] Past Medical History Medical History Hidradenitis suppurativa Edema Fibromyalgia Type 2 diabetes mellitus without complications Neuropathy Abscess Abdominal pain Infection of skin due to methicillin resistant Staphylococcus aureus (MRSA) Numbness of right hand COVID-19 Sebaceous cyst Cubital tunnel syndrome on left Contusion of right ankle Numbness and tingling in left hand Left hand pain Stiffness of left hand joint Emesis Overweight (BMI 25.0-29.9) Borderline diabetes Dyslipidemia Non-toxic multinodular goiter Diabetes type 2, controlled History of restless legs syndrome Anxiety Depression High cholesterol Asthma DVT (deep venous thrombosis) GERD (gastroesophageal reflux disease) Anastomotic ulcer Surgical History Hx of colonoscopy H/O removal of cyst (02/03/23) History of removal of cyst (07/28/22) Hx of cholecystectomy History of surgery History of surgery on left wrist Hx of elbow surgery History of excision of epidermal inclusion cyst (03/23/22) Hx of excision of epidermal inclusion cyst (12/25/21) History of excision of mass (10/26/21) S/P trigger finger release History of tooth extraction Hx of hand surgery Hx of esophagogastroduodenoscopy S/P gastric bypass History of hysterectomy Family History Family History Mother Diabetes mellitus CHF (congestive heart failure) Kidney failure Cervical cancer Brother No problems noted. Brother No problems noted. Social History Social History Household Members: Spouse Housing: Apartment Are you a primary patient centered care specialist to a significant other at home: No Do you presently have visiting nurse or other home services: No Alcohol intake: never Patient Tobacco Use Status: Current everyday Tobacco user Tobacco use type: Cigarette Cigarette Packs Per Day: 0 Cigarettes Per Day: 2 Years Smoked: 30 Smoked in Last 30 Days: No Use of substances other than those prescribed or required for medical reasons: No Advance Directives: No Advance Directives Information Provided: Yes Advance Directives Date on File: 03/16/24 Do you have a plan to hurt others: No Plan Patient : No Current occupational status: employed 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 SKIN: Normal skin color for ethnicity, no rashes noted. HEENT: Normocephalic, atraumatic, no stridor, EOMI. CHEST: Heart regular rate and rhythm, no murmurs, symmetric chest rise and fall. PULMONARY: Clear to auscultation bilaterally, no labored breathing, no wheezes/rhales/rhonchi. ABDOMINAL: Soft, nondistended, nontender, positive bowel sounds in all quadrants. : Deferred. MUSCULOSKELETAL: Normal tone, limited range of motion in the right wrist in extension, normal function of the radial, median and ulnar nerves of the right hand, point tenderness overlying the dorsum of the right wrist with minimal swelling and what feels like reaccumulation of a ganglion cyst. NEURO: Alert and oriented x3, CN II through XII intact, equal strength and sensation bilateral upper and lower extremities, no focal neurologic deficits. PSYCHIATRIC: Normal affect, fluid speech, good eye contact and appropriate demeanor. Vital Signs: Vital Signs: Last Vital Signs Temp 97.4 F 05/04/25 08:59 Pulse 83 05/04/25 08:59 Resp 18 05/04/25 08:59 BP 123/69 05/04/25 08:59 Pulse Ox 98 05/04/25 08:59 O2 Del Method Room Air 05/04/25 08:59 BMI result Body Mass Index 27.6 Medications Administered Discontinued Medications Generic Name Dose Route Start Last Admin Trade Name Freq PRN Reason Stop Dose Admin Diphenhydramine HCl 50 mg 05/04/25 09:49 05/04/25 10:00 Diphenhydramine Hcl 25 Mg Capsule PO 05/04/25 09:50 50 mg ONCE ONE Administration Haloperidol 5 mg 05/04/25 09:49 05/04/25 10:01 Haloperidol 5 Mg Tablet PO 05/04/25 09:50 5 mg ONCE ONE Administration Oxycodone HCl 5 mg 05/04/25 09:49 05/04/25 10:01 Oxycodone Hcl Immed Release 5 Mg Tablet PO 05/04/25 09:50 5 mg ONCE ONE Administration Medical Decision Making Medical Decision Making MDM Narrative: Patient presents today with musculoskeletal pain, remote surgery. Differential diagnosis includes fracture, soft tissue contusion, ligamentous injury, tendon injury, infection, laceration, among others. Patient is neurovascularly intact upon arrival to the emergency department. I do not feel that any imaging is indicated at this point. Patient has chronic pain in the wrist, no new injuries and is here with exacerbation of pain. Plan for pain control and continued follow-up with her surgeon as an outpatient. She has an appointment in 2 weeks for an MRI of the wrist. I do feel that there is reaccumulation of fluid in the joint space, potential for another ganglion cyst formation. I discussed this with the patient. The imaging findings show what looks like a sesamoid bone, no acute fracture in her last x-ray which was about 2 weeks ago. She is stable for outpatient follow up. Discharged in stable condition. Differential Diagnosis Differential Diagnoses: The differential diagnosis associated with the presentation includes (As above) External Record Review External record reviewed: Inpatient record and Prior outpatient radiology Prescription Management I considered prescription management with: Pain Medication Chronic Conditions Patient?s care impacted by: Other (Asthma, chronic pain) Discharge Plan Discharge Clinical Impression: Chronic pain of right wrist Patient Disposition: Home, Self-Care Instructions: Non-pharmacological Pain Management Therapies for Adults (ED) Additional Instructions: Try to keep your wrist elevated at the level of your heart as long as you are up and moving around. The more you let your wrist hang by her side, the more your wrist we will swell and cause worsening pain. Try using ice to help with inflammation as well. Return to the emergency department immediately if you notice any new or worsening symptoms including: Worsening swelling despite medications and elevation, fevers greater than 100?, redness that tracks away from your wrist, any new symptom that concerns you. Call 911 with any medical emergency. Prescriptions: New diclofenac sodium 1 % gel 4 g topical QID Qty: 50 0RF Rx Instructions: apply to top of wrist No Action cholecalciferol (vitamin D3) 50 mcg (2,000 unit) capsule 50 mcg PO DAILY Qty: 30 11RF (DME) FreeStyle Lite Strips Strip See Rx Instructions .ROUTE .COMPLEX Qty: 150 6RF Dose Instruction: USE TO TEST BLOOD SUGAR TWICE DAILY Rx Instructions: USE TO TEST BLOOD SUGAR TWICE DAILY thiamine HCl (vitamin B1) 100 mg tablet 100 mg PO DAILY Qty: 90 3RF Readi-Cat 2 2 % (w/v) suspension 450 ml PO ONCE Qty: 900 0RF Rx Instructions: Drink both bottles [address] scan hydroxyzine HCl 25 mg tablet 50 mg PO BEDTIME sertraline 100 mg tablet 1 tab PO BEDTIME tizanidine 4 mg tablet 1 tab PO BEDTIME PRN (Reason: Pain) fluticasone propionate [Flonase Allergy Relief] 50 mcg/actuation spray,suspension 2 spray intranasal DAILY Qty: 16 0RF Rx Instructions: administer into each nostril metformin 500 mg tablet extended release 24 hr 500 mg PO BID albuterol sulfate 1.25 mg/3 mL solution for nebulization 1.25 mg inhalation QID PRN (Reason: shortness of breath or wheezing) Qty: 90 0RF albuterol sulfate 90 mcg/actuation Hfa Aerosol Inhaler 2 puff INHALATION Q4-6H PRN (Reason: Shortness Of Breath Or Wheezing) lidocaine [Lidoderm] 5 % adhesive patch,medicated 1 patch topical DAILY Qty: 15 0RF Rx Instructions: leave on most painful area for up to 12 hrs cyclobenzaprine 10 mg tablet 10 mg PO Q8H Qty: 20 0RF meclizine 25 mg tablet 25 mg PO TID PRN (Reason: dizziness) Qty: 20 0RF diclofenac sodium [Aleve (diclofenac)] 1 % gel 2 g topical BID PRN (Reason: pain (scale score 4-6)) Qty: 100 0RF Rx Instructions: apply to single elbow, wrist or hand; for hand includes palm/fingers/back of hand Chantix hydrocodone-acetaminophen 5-325 mg tablet 1 tab PO Q6H PRN (Reason: pain) Qty: 15 0RF Rx Instructions: Partial Fill upon patient request. methylprednisolone [Medrol (Coleman)] 4 mg tablets,dose pack 4 mg PO QAM Qty: 21 0RF Rx Instructions: Take per package instructions methocarbamol 750 mg tablet 1,500 mg PO Q8H PRN (Reason: pain, moderate) Qty: 24 0RF (DME) blood-glucose meter [FreeStyle Lite Meter] Kit See Rx Instructions .Route Qty: 1 0RF Rx Instructions: As directed test blood sugar two times a day cyanocobalamin (vitamin B-12) 1,000 mcg tablet 1,000 mcg PO QAM oxycodone 5 mg tablet 5 mg PO Q6H PRN (Reason: severe pain) pramipexole 0.5 mg tablet 0.5 mg PO TID varenicline tartrate 1 mg tablet 1 mg PO BID cephalexin 500 mg capsule 500 mg PO Q8H 7 Days Qty: 21 0RF Tradjenta 5 mg tablet 5 mg PO DAILY atorvastatin 40 mg tablet 40 mg PO BEDTIME minocycline 100 mg capsule 100 mg PO BID (DME) FreeStyle Gwendolyn 3 Plus Sensor Device See Rx Instructions .ROUTE [id number] Qty: 1 Rx Instructions: As directed ferrous sulfate 325 mg (65 mg iron) tablet 325 mg PO QAM (DME) FreeStyle Lite Strips Strip See Rx Instructions .ROUTE TID Qty: 10 Rx Instructions: As directed pantoprazole 40 mg tablet,delayed release (DR/EC) 40 mg PO QAM zolpidem 5 mg tablet 5 mg PO BEDTIME PRN (Reason: insomnia) furosemide 20 mg tablet 10 mg PO DAILY gabapentin 100 mg capsule 100 mg PO BID (DME) lancets [Easy Touch Twist Lancets] 33 gauge misc See Rx Instructions .ROUTE TID Qty: 100 Rx Instructions: As directed sucralfate 1 gram tablet 1 g PO QID ondansetron HCl 4 mg tablet 4 mg PO Q12H PRN (Reason: nausea/vomiting) hydrochlorothiazide 12.5 mg capsule 12.5 mg PO QAM esomeprazole magnesium 20 mg capsule,delayed release(DR/EC) 20 mg PO QAM Print Language: Spanish
--- OUTSIDE RECORDS SUMMARY | 2025-05-04 09:55 | XMS_ITS | Encounter Summary ---
Author Organization [employer] Address [address] [facility] [address] [place] [address] Care Team Providers Care Command And Control Officer Name Role Phone Joyce Tapia MD Primary Care Provider [phone] Cristal uMhammad PharmD Unavailable [phone] Jenny Schmidt MD Primary Care Provider [phone] Reason for Visit * Reason Onset Date Comments Med Refill 09/11/2024 Encounter Details Date Type Department Care Team ([facility] st Contact Info) Description 09/11/2024 Telephone [facility] [address] [place], [place] [phone] Joyce Tapia MD [address] [place], [place] [phone] Med Refill Social History Tobacco Use Types [...] 09/14/2024 9:02 AM Nakul Higuera MA * Trouble concentrating on things, such as reading the newspaper or watching television Answer Date of Assessment Author Not at all 09/14/2024 9:02 AM EDNakul Davis MA * Moving or speaking so slowly [...] Assessment Author Somewhat difficult 09/14/2024 9:02 AM EDDorothea Davis MA documented as of this encounter Miscellaneous Notes * Telephone Encounter - Sha Harris - 09/11/2024 9:37 AM EDT TC from pt requesting medication refill. Medications needing refill : oxyCODONE (Roxicodone) 5 MG immediate release tablet To be sent to: [facility]/pharmacy #[id number] NAKUL RYDER - [address] [facility] documented in this encounter Plan of Treatment Upcoming Encounters Date Type Department Care Team (Late st Contact Info) Description 05/06/2025 10:00 AM EST Telemedicine [facility] MED & PEDS [address] [place] [address] Cristal Muhammad, PharmD [address] [place] [address] 06/04/2025 11:00 AM EST Clinical Support [facility] [address] [place] [address] Katherine Casper, MAKEDA [address] [place] [address] 08/26/2025 9:00 AM EST Office Visit [facility] [address] [place] [address] Dana Fields, OD [address] [place] [address] documented as of this encounter Visit Diagnoses Not on filedocumented in this encounter Care Teams Command And Control Officer Relationship Specialty Start Date End Date Joyce Tapia MD [address] [place] [address] PCP - General Family Medicine 06/19/12 05/01/25 Jenny Schmidt MD [address] [place] [address] PCP - General Family Medicine 05/02/25 Cristal Muhammad PharmD [address] [place] [address] Pharmacist Pharmacy 08/07/24 documented as of this encounter
--- OUTSIDE RECORDS SUMMARY | 2025-05-04 09:55 | XMS_ITS | Encounter Summary ---
Author Organization [employer] Address [address] [facility] [address] [place] [address] Care Team Providers Care Bed Teacher Name Role Phone Joyce Tapia MD Primary Care Provider [phone] Cristal Muhammad PharmD Unavailable [phone] Jenny Schmidt MD Primary Care Provider [phone] Reason for Visit * Reason Onset Date Comments Med Refill 03/17/2023 Encounter Details Date Type Department Care Team ([facility] st Contact Info) Description 03/17/2023 Telephone [facility] MED & PEDS [address] [place], [place] [phone] Joyce Tapia MD [address] [place], [place] [phone] Med Refill Social History Tobacco Use Types [...] Info) Description 05/06/2025 10:00 AM EST Telemedicine [facility] PED[facility] [address] [place] [address] Cristal Muhammad PharmD [address] [place] [address] 06/04/2025 11:00 AM EST Clinical Support [facility] [address] [place] [address] Katherine Casper, MAKEDA [address] [place] [address] 08/26/2025 9:00 AM EST Office Visit [facility] OPTOMETRY [address] [place] [address] Dana Fields, OD [address] [place] [address] documented as of this encounter Visit Diagnoses Not on filedocumented in this encounter Care Teams Bed Teacher Relationship Specialty Start Date End Date Joyce Tapia MD [address] [place] [address] PCP - General Family Medicine 06/19/12 05/01/25 Jenny Schmidt MD [address] [place] [address] PCP - General Family Medicine 05/02/25 Cristal Muhammad PharmD [address] [place] [address] Pharmacist Pharmacy 08/07/24 documented as of this encounter
--- OUTSIDE RECORDS SUMMARY | 2025-05-04 09:55 | XMS_ITS | Encounter Summary ---
Author Organization [employer] Address [address] [facility] [address] [place] [address] Care Team Providers Care Timber Cutter Name Role Phone Joyce Tapia MD Primary Care Provider [phone] Cristal Muhammad PharmD Unavailable [phone] Jenny Schmidt MD Primary Care Provider [phone] Reason for Visit * Reason Onset Date Comments Referral 03/09/2023 Encounter Details Date Type Department Care Team ([facility] st Contact Info) Description 03/09/2023 Telephone [facility] MED & PEDS [address] [place], [place] [phone] Joyce Tapia MD [address] [place], [place] [phone] Referral Social History Tobacco Use Types Packs/Day [...] wait that long. Please contact pt at [phone] documented in this encounter Plan of Treatment Upcoming Encounters Date Type Department Care Team (Late st Contact Info) Description 05/06/2025 10:00 AM EST Telemedicine [facility] MED & PEDS [address] [place] [address] Cristal Muhammad PharmD [address] [place] [address] 06/04/2025 11:00 AM EST Clinical Support [facility] MED & PEDS [address] [place] [address] Katherine Casper, MAKEDA [address] [place] [address] 08/26/2025 9:00 AM EST Office Visit [facility] OPT[facility]RY [address] [place] [address] Dana Fields, OD [address] [place] [address] documented as of this encounter Visit Diagnoses Not on filedocumented in this encounter Care Teams Timber Cutter Relationship Specialty Start Date End Date Joyce Tapia MD [address] [place] [address] PCP - General Family Medicine 06/19/12 05/01/25 Jenny Schmidt MD [address] [place] [address] PCP - General Family Medicine 05/02/25 Cristal Muhammad, Deonte [address] [place] [address] Pharmacist Pharmacy 08/07/24 documented as of this encounter
--- OUTSIDE RECORDS SUMMARY | 2025-05-04 09:55 | XMS_ITS | Encounter Summary ---
Author Organization [employer] Address [address] [facility] [address]t [place] [address] Care Team Providers Care Tobacco Sizer Name Role Phone Joyce Tapia MD Primary Care Provider [phone] Cristal Muhammad PharmD Unavailable [phone] eJnny Schmidt MD Primary Care Provider [phone] Reason for Visit * Reason Onset Date Comments Med Refill 05/08/2024 Encounter Details Date Type Department Care Team (Late st Contact Info) Description 05/08/2024 Refill [facility] [address] [place] [address] Joyce Tapia MD [address] [place], [place] [phone] Muscle spasm Social History Tobacco Use Types [...] Info) Description 05/06/2025 10:00 AM EST Telemedicine [facility] MED & PEDS [address] [place] [address] Cristal Muhammad, PharmD [address] [place] [address] 06/04/2025 11:00 AM EST Clinical Support [facility] MED & PEDS [address] [place] [address] Katherine Casper, RN [address] [place] [address] 08/26/2025 9:00 AM EST Office Visit [facility] [address] [place] [address] Dana Fields, OD [address] [place] [address] documented as of this encounter Visit Diagnoses Diagnosis Muscle spasm Spasm of muscle documented in this encounter Care Teams Tobacco Sizer Relationship Specialty Start Date End Date Joyce Tapia MD [address] [place] [address] PCP - General Family Medicine 06/19/12 05/01/25 Jenny Schmidt MD [address] [place] [address] PCP - General Family Medicine 05/02/25 Cristal Muhammad, BboD [address] [place] [address] Pharmacist Pharmacy 08/07/24 documented as of this encounter
--- OUTSIDE RECORDS SUMMARY | 2025-05-04 09:55 | XMS_ITS | Encounter Summary ---
Author Organization [employer] Address [address] [facility] [address] 7[address] [place] [address] Care Team Providers Care Optical Systems Engineer Name Role Phone Joyce Tapia MD Primary Care Provider [phone] Cristal Muhammad PharmD Unavailable [phone] Jenny Schmidt MD Primary Care Provider [phone] Reason for Visit * Reason Onset Date Comments Appt 08/09/2024 Encounter Details Date Type Department Care Team ([facility] st Contact Info) Description 08/09/2024 Telephone [facility] MEDICINE [address] [place], [place] [phone] Joyce Tapia MD [address] [place], [place] [phone] Appt Social History Tobacco Use Types Packs/Day [...] can be changed for a phone visit. [phone] documented in this encounter Plan of Treatment Upcoming Encounters Date Type Department Care Team ([facility] Contact Info) Description 05/06/2025 10:00 AM EST Telemedicine [facility] MED & PEDS [address] [place] [address] Cristal Muhammad, PharmD [address] [place] [address] 06/04/2025 11:00 AM EST Clinical Support [facility] [address] [place] [address] Katherine Casper, RN 505 [place] [address] 08/26/2025 9:00 AM EST Office Visit [facility] OPTOMETRY [address] [place] [address] Dana Fields, OD [address] [place] [address] documented as of this encounter Visit Diagnoses Not on filedocumented in this encounter Care Teams Optical Systems Engineer Relationship Specialty Start Date End Date Joyce Tapia MD [address] [place] [address] PCP - General Family Medicine 06/19/12 05/01/25 Jenny Schmidt MD [address] [place] [address] PCP - General Family Medicine 05/02/25 Cristal Muhammad PharmD [address] [place] [address] Pharmacist Pharmacy 08/07/24 documented as of this encounter
--- OUTSIDE RECORDS SUMMARY | 2025-05-04 09:55 | XMS_ITS | Encounter Summary ---
Author Organization [employer] Address 75 [facility] 7t [place] [address] Care Team Providers Care Cloth Covered Helmet Puller Name Role Phone Joyce Tapia MD Primary Care Provider [phone] Cristal Muhammad PharmD Unavailable [phone] Jenny Schmidt MD Primary Care Provider [phone] Reason for Visit * Reason Onset Date Comments Med Refill 04/25/2024 Encounter Details Date Type Department Care Team ([facility] st Contact Info) Description 04/25/2024 Telephone [facility] MEDICINE [address] [place] [address] Joyce Tapia MD [address] [place], [place] [phone] Med Refill Social History Tobacco Use Types [...] oxyCODONE (Roxicodone) 5 [facility] documented in this encounter Plan of Treatment Upcoming Encounters Date Type Department Care Team (Late st Contact Info) Description 05/06/2025 10:00 AM EST Telemedicine [facility] MED & PEDS [address] [place] [address] Cristal Muhammad, PharmD [address] [place] [address] 06/04/2025 11:00 AM EST Clinical Support [facility] MED & PEDS [address] [place] [address] Katherine Casper, RN [address] [place] [address] 08/26/2025 9:00 AM EST Office Visit [facility] OPTOMETRY [address] [place] [address] Dana Fields, OD [address] [place] [address] documented as of this encounter Visit Diagnoses Not on filedocumented in this encounter Care Teams Cloth Covered Helmet Puller Relationship Specialty Start Date End Date Joyce Tapia MD [address] [place] [address] PCP - General Family Medicine 06/19/12 05/01/25 Jenny Schmidt MD [address] [place] [address] PCP - General Family Medicine 05/02/25 Cristal Muhammad PharmD [address] [place] [address] Pharmacist Pharmacy 08/07/24 documented as of this encounter
--- OUTSIDE RECORDS SUMMARY | 2025-05-04 09:55 | XMS_ITS | Encounter Summary ---
Author Organization [employer] Address 75 [facility] 7t [place] [address] Care Team Providers Care Residential Field Manager Name Role Phone Joyce Tapia MD Primary Care Provider [phone] Cristal Muhammad PharmD Unavailable [phone] Jenny Schmidt MD Primary Care Provider Encounter Details Date Type Department Care Team ([facility] st Contact Info) Description 2024 Orders Only [facility] CHC MED & PEDS [address] [place], [place] [phone] Joyce Tapia MD [address] [place] [address] Social History Tobacco Use Types Packs/Day Years [...] Info) Description 05/06/2025 10:00 AM EST Telemedicine [facility] MED & PEDS [address] [place] [address] Cristal Muhammad, PharmD 230 [place] [address] 06/04/2025 11:00 AM EST Clinical Support [facility] MED & PEDS [address] [place] [address] Katherine Casper, RN [address] [place] [address] 08/26/2025 9:00 AM EST Office Visit [facility] OPTOMETRY [address] [place] [address] Dana Fields, OD [address] [place] [address] documented as of this encounter Visit Diagnoses Not on filedocumented in this encounter Additional Health Concerns Assessment Noted Time PHQ-9 Depression Total Score: 7 09/15/19 25 9:02 AM EDT documented as of this encounter Care Teams Residential Field Manager Relationship Specialty Start Date End Date Joyce Tapia MD [address] [place] [address] PCP - General Family Medicine 06/19/12 05/01/25 Jenny Schmidt MD [address] [place] [address] PCP - General Family Medicine 05/02/25 Cristal Muhammad PharmD [address] [place] [address] Pharmacist Pharmacy 08/07/24 documented as of this encounter
--- OUTSIDE RECORDS SUMMARY | 2025-05-04 09:55 | XMS_ITS | Clinical Summary ---
Author Organization 175 [facility] g Address [address] [place] [address] Phone Care Team Providers Care Director Of Sales Marketing Name Role Phone Unavailable Primary Care Provider [...] 8:30 AM EST Consult Orthopedic Surgery - [place] [address] [place] [phone] Raymundo Manzo, DPM [address] [place] [phone] Health Maintenance Due Date Last Done Comments [...]
--- OUTSIDE RECORDS SUMMARY | 2025-05-04 09:55 | XMS_ITS | Encounter Summary ---
Author Organization [employer] Address 75 [facility] 7t [place] [address] Care Team Providers Care Recruitment Director Name Role Phone Joyce Tapia MD Primary Care Provider [phone] Cristal Muhammad PharmD Unavailable [phone] Jenny Schmidt MD Primary Care Provider [phone] Reason for Visit * Reason Onset Date Comments Med Refill 04/19/2023 Encounter Details Date Type Department Care Team ([facility] st Contact Info) Description 04/19/2023 Telephone [facility] CHC MED & PEDS [address] [place], [place] [phone] Joyce Tapia MD [address] [place], [place] [phone] Med Refill Social History Tobacco Use Types [...] Info) Description 05/06/2025 10:00 AM EST Telemedicine [facility] MED & PEDS [address] [place] [address] Cristal Muhammad PharmD [address] [place] [address] 06/04/2025 11:00 AM EST Clinical Support [facility] MED & PEDS [address] [place] [address] Katherine Casper, MAKEDA [address] [place] [address] 08/26/2025 9:00 AM EST Office Visit [facility] OPTOMETRY [address] [place] [address] Dana Fields, OD [address] [place] [address] documented as of this encounter Visit Diagnoses Not on filedocumented in this encounter Care Teams Recruitment Director Relationship Specialty Start Date End Date Joyce Tapia MD [address] [place] [address] PCP - General Family Medicine 06/19/12 05/01/25 Jenny Schmidt MD [address] [place] [address] PCP - General Family Medicine 05/02/25 Cristal Muhammad, Deonte [address] [place] [address] Pharmacist Pharmacy 08/07/24 documented as of this encounter
--- OUTSIDE RECORDS SUMMARY | 2025-05-04 09:55 | XMS_ITS | Encounter Summary ---
Author Organization [employer] Address 75 [facility] 7t [place] [address] Care Team Providers Care Oil Burner Technician Name Role Phone Joyce Tapia MD Primary Care Provider [phone] Cristal Muhammad PharmD Unavailable [phone] Jenny Schmidt MD Primary Care Provider [phone] Reason for Visit * Reason Onset Date Comments Med Refill 04/19/2024 Encounter Details Date Type Department Care Team (Late st Contact Info) Description 04/19/2024 Refill [facility] MEDICINE [address] [place] [address] Joyce Tapia MD [address] [place], [place] [phone] Status post surgical removal of nail matrix [...] Upcoming Encounters Date Type Department Care Team ([facility] st Contact Info) Description 05/06/2025 10:00 AM EST Telemedicine [facility] MED & PEDS [address] [place] [address] Cristal Muhammad, PharmD [address] [place] [address] 06/04/2025 11:00 AM EST Clinical Support [facility] MED & PEDS [address] [place] [address] Katherine Casper, RN [address] [place] [address] 08/26/2025 9:00 AM EST Office Visit [facility] OPTOMETRY [address] [place] [address] Dana Fields, OD [address] [place] [address] documented as of this encounter Visit Diagnoses Diagnosis Status post surgical removal of nail matrix of toe of left foot documented in this encounter Care Teams Oil Burner Technician Relationship Specialty Start Date End Date Joyce Tapia MD [address] [place] [address] PCP - General Family Medicine 06/19/12 05/01/25 Jenny Schmidt MD [address] [place] [address] PCP - General Family Medicine 05/02/25 Cristal Muhammad PharmD [address] [place] [address] Pharmacist Pharmacy 08/07/24 documented as of this encounter
--- OUTSIDE RECORDS SUMMARY | 2025-05-04 09:55 | XMS_ITS | Encounter Summary ---
Author Organization [employer] Address 75 [facility] 7t [place] [address] Care Team Providers Care Svp Of Digital Name Role Phone Joyce Tapia MD Primary Care Provider [phone] Cristal Muhammad PharmD Unavailable [phone] Jenny Schmidt MD Primary Care Provider [phone] Reason for Visit * Reason Onset Date Comments Med Refill 03/02/2025 Encounter Details Date Type Department Care Team ([facility] st Contact Info) Description 03/02/2025 Telephone [facility] CHC MED & PEDS [address] [place], [place] [phone] Ayden Orellana MD [address] [place], [place] [phone] Med Refill Social History Tobacco Use Types [...] pickup. [facility] a [facility] documented in this encounter Plan of Treatment Upcoming Encounters Date Type Department Care Team ([facility] st Contact Info) Description 05/06/2025 10:00 AM EST Telemedicine [facility] CHC MED & PEDS [address] [place] [address] Cristal Muhammad, PharmD [address] [place], [place] [phone] 06/04/2025 11:00 AM EST Clinical Support [facility] CHC MED & PEDS [address] [place] [address] Katherine Casper, RN [address] [place] [address] 08/26/2025 9:00 AM EST Office Visit [facility] OPTOMETRY [address] [place] [address] Dana Fields, OD [address] [place] [address] documented as of this encounter Visit Diagnoses Diagnosis Status post surgical removal of nail matrix of toe of left foot documented in this encounter Additional Health Concerns Assessment Noted Time PHQ-9 Depression Total Score: 7 09/15/19 9:02 AM EDT documented as of this encounter Care Teams Svp Of Digital Relationship Specialty Start Date End Date Joyce Tapia MD [address] [place] [address] PCP - General Family Medicine 06/19/12 05/01/25 Jenny Schmidt MD [address] [place] [address] PCP - General Family Medicine 05/02/25 Cristal Muhammad PharmD [address] [place] [address] Pharmacist Pharmacy 08/07/24 documented as of this encounter
--- OUTSIDE RECORDS SUMMARY | 2025-05-04 09:55 | XMS_ITS | Clinical Summary ---
Author Organization [employer] Address [address] [facility] [address] [place] [address] Care Team Providers Care Back Maker Name Role Phone Cristal Muhammad PharmD Unavailable [phone] Jenny Schmidt MD Primary Care Provider [phone] Allergies Active Allergy Reactions Criticality Noted Date Comments Cephalexin Itching 07/27/2010 Latex 09/20/2022 Other High 08/03/2023 Other Reaction(s): SEIZURES Other Reaction(s): Redness of Skin redness and skin tears Penicillins Hives 07/27/2010 Prochlorperazine High 07/27/2010 Other [...] times daily. Active Blood Glucose Monitoring Suppl (Collibra Lite) w/Device kit Test blood sugar as [...] for low blood sugar. 1 each Active varenicline (Chantix) 1 MG tablet Take 1/2 tablet by mouth daily for 3 days, then 1/2 tablet twice daily for 4 days, then 1 tablet twice daily thereafter. Take with a full glass of water. 60 tablet 2 025 Active cyanocobalamin (Vitamin B-12) 1000 MCG tablet TAKE ONE TABLET EVERY MORNING 90 tablet 1 025 Active pramipexole (Mirapex) 0.5 MG tablet TAKE ONE TABLET THREE TIMES DAILY IN THE MORNING, EVENING AND BEDTIME 90 tablet 11 025 Active furosemide (Lasix) 20 MG tablet Take 0.5 tablets (10 mg) by mouth Once per day. 15 tablet 11 025 2025 Active empagliflozin (Jardiance) 25 MGIndications:T ype 2 diabetes mellitus without complication, without long-term current use of insulin (HCC) Take 1 tablet (25 mg) by mouth Once per day. 30 tablet 5 Active Continuous Glucose Sensor (FreeStyle Gwendolyn 3 Plus Sensor) misc 1 each every 15 days. 2 each Active clotrimazole (Lotrimin) 1 % vaginal creamIndication s:Vulvovaginal Candidiasis Insert one applicator per vagina at bedtime for 7 nights 45 g 025 Active tiZANidine (Zanaflex) 4 MG tabletIndicatio [...] HOURS NEEDED FOR SEVERE PAIN 30 tablet 025 Active Ferrous Sulfate (iron) 325 (65 Fe) MG tablet TAKE ONE TABLET EVERY MORNING 90 tablet 1 Active sertraline (Zoloft) 100 MG tablet TAKE ONE TABLET EVERY NIGHT AT BEDTIME 30 tablet 6 025 Active minocycline 100 MG capsuleIndicati ons:Hidradeniti s suppurativa Take 1 capsule (100 mg) by mouth 2 times daily. 60 capsule 1 025 2024 Active albuterol (2.5 MG/3ML) 0.083% nebulizer [...] MOUTH TWICE A DAY 60 tablet 3 025 Active lidocaine (Lidoderm) 5 % patchIndication s:Pain APPLY 1 PATCH TOPICALLY EVER DAY. REMOVE AND DISCARD PATCH WITHIN 12 HOURS OR DIRECTED BY MD. 30 patch Active gabapentin (Neurontin) 100 MG capsule TAKE 1 CAPSULE BY MOUTH TWICE A DAY 60 capsule Active FREESTYLE LITE test stripIndication s:Type 2 diabetes mellitus without complication, without long-term current use of insulin ([facility]) USE TO TEST BLOOD SUGAR THREE TIMES A DAY 100 strip 5 025 Active Easy Touch Lancets 33G/Twist miscIndications :Type 2 diabetes mellitus without complication, without long-term current use of insulin ([facility]) USE TO TEST BLOOD SUGAR THREE TIMES A DAY 100 each 5 025 Active oxyCODONE (Roxicodone) 5 MG immediate release tabletIndicatio ns:Status post surgical removal of nail matrix of toe of left foot Take 1 tablet (5 mg) by mouth every 6 (six) hours if needed for severe pain for up to 14 days. 56 tablet 025 2024 Active clotrimazole-be tamethasone (Lotrisone) cream APPLY 1 GRAM THREE TIMES A DAY TO AFFECTED AREA NEEDED FOR ITCHING/IRRITAT ION 025 Active linaGLIPtin (Tradjenta) 5 MG tabletIndicatio ns:Type 2 diabetes mellitus without complication, without long-term current use of insulin ([facility]) Take 1 tablet (5 mg) by mouth Once per day. 90 tablet 1 025 Active zolpidem (Ambien) 5 MG tablet TAKE ONE TABLET EVERY NIGHT AT BEDTIME NEEDED FOR SLEEP 30 tablet 025 Active Lancets 33G miscIndications :Type 2 diabetes mellitus without complication, without long-term current use of insulin ([facility]) USE TO TEST BLOOD SUGAR THREE TIMES A DAY 100 each 3 025 2024 Discontinued glucose blood (FREESTYLE LITE) test stripIndication s:Type 2 diabetes mellitus without complication, without long-term current use of insulin ([facility]) USE TO TEST BLOOD SUGAR THREE TIMES A DAY 100 each 3 025 2024 Discontinued gabapentin (Neurontin) 100 [...] eorder (will not trigger notification to Pharmacy)) linaGLIPtin (Tradjenta) 5 MG tabletIndicatio ns:Type 2 diabetes mellitus without complication, without long-term current use of insulin (HCC) Take 1 tablet (5 mg) by mouth Once per day. 90 tablet 1 025 2024 Discontinued(R eorder (will not trigger notification to Pharmacy)) oxyCODONE (Roxicodone) 5 MG immediate release tabletIndicatio ns:Status post surgical removal of nail matrix of toe of left foot Take 1 tablet (5 mg) by mouth every 6 (six) hours if needed for severe pain for up to 14 days. 56 tablet 025 2024 Discontinued(R eorder (will not [...] Indication: fibromyalgia, neuropathic pain right hand Last WASH OIL PUMP OPERATOR Agreement: 11/14/24 Tier: 3 (WASH OIL PUMP OPERATOR visits Q4-6 months) GERD (gastroesophageal reflux disease) [...] Recommendations brianna Adler will reach out to [place] [facility] and/or [facility] if further supports needed Status post surgical [...] Encounters Date Type Department Care Team Description 05/03/2025 Travel 04/25/2025 Refill [facility] [address] [place], [place] [phone] Joyce Tapia MD 04/24/2025 Refill [facility] [address] [place] [address] Cristal Muhammad, Deonte Type 2 diabetes mellitus without complication, without long-term current use of insulin (HCC) 04/21/2025 Refill [facility] [address] [place] [address] Joyce Tapia MD Status post surgical removal of nail matrix of toe of left foot 04/17/2025 Refill [facility] [address] [place] [address] Joyce Tapia MD Status post surgical removal of nail matrix of toe of left foot 04/16/2025 10:00 AM EDT Office Visit [facility] [address] [place] [address] Donnie, Dana, OD Type 2 diabetes mellitus without complication, without long-term current use of insulin (HCC) (Primary Dx) 04/16/2025 Travel 04/15/2025 Travel 04/14/2025 Refill [facility] [address] [place] [address] Joyce Tapia MD Status post surgical removal of nail matrix of toe of left foot 04/12/2025 Refill [facility] [address] [place] [address] Joyce Tapia MD Type 2 diabetes mellitus without complication, without long-term current use of insulin (HCC) 04/08/2025 Refill [facility] [address] [place] [address] Ayden Orellana MD Status post surgical removal of nail matrix of toe of left foot 04/07/2025 Refill [facility] [address] [place] [address] Joyce Tapia MD Status post surgical removal of nail matrix of toe of left foot 04/07/2025 Refill [facility] [address] [place] [address] Joyce Tapia MD 04/04/2025 Travel 04/03/2025 Travel 03/31/2025 Refill [facility] [address] [place] [address] Ayden Orellana MD Status post surgical removal of nail matrix of toe of left foot 03/27/2025 Refill [facility] [address] [place] [address] Joyce Tapia MD Pain 03/24/2025 Refill [facility] [address] [place] [address] Ayden Orellana MD Wheezing 03/24/2025 Refill [facility] [address] [place] [address] Joyce Tapia MD Pain; Status post surgical removal of nail matrix of toe of left foot 03/24/2025 Refill [facility] [address] [place] [address] Juan Montanez MD Mild intermittent asthma with exacerbation; Wheezing; Pain 03/19/2025 10:30 AM EDT Office Visit [facility] [address] [place] [address] Ayden Orellana MD Hidradenitis suppurativa (Primary Dx) 03/19/2025 Travel 03/18/2025 Travel 03/17/2025 Refill [facility] [address] [place] [address] Joyce Tapia MD Status post surgical removal of nail matrix of toe of left foot 03/15/2025 Refill [facility] [address] [facility] [place] [id number] Joyce Tapia MD 03/11/2025 11:30 AM EDT Telemedicine [facility] [address] [place] [address] Joyce Tapia MD Bone spur of left foot (Primary Dx); Type 2 diabetes mellitus without complication, without long-term current use of insulin ([facility]); Fibromyalgia 03/11/2025 Travel 03/10/2025 Travel 03/10/2025 Refill [facility] [address] [facility] [place] [id number] Joyce Tapia MD Status post surgical removal of nail matrix of toe of left foot 03/09/2025 Refill [facility] [address] [facility] [place] [id number] Joyce Tapia MD 03/08/2025 Telephone [facility] [address] [place] [address] Joyce Tapia MD Chart Prep 03/06/2025 Orders Only [facility] [address] [place] [address] Joyce Tapia MD Type 2 diabetes mellitus without complication, without long-term current use of insulin ([facility]) (Primary Dx) 03/05/2025 Refill [facility] [address] [place] [address] Ayden Orellana MD Status post surgical removal of nail matrix of toe of left foot 03/05/2025 Patient Outreach [facility] [address] [place] [phone] Joyce Tapia MD 03/04/2025 Refill [facility] [address] [place] [address] Ayden Orellana MD Status post surgical removal of nail matrix of toe of left foot 03/04/2025 Orders Only GENERIC EXTERNAL DATA DEPARTMENT Provider, Generic External Data 03/04/2025 Refill [facility] [address] [place] [address] Ayden Orellana MD 03/02/2025 Telephone [facility] [address] [place] [address] Ayden Orellana MD Med Refill 03/01/2025 Orders Only GENERIC EXTERNAL DATA DEPARTMENT Provider, Generic External Data 02/26/2025 Telephone [facility] [address] [place] [phone] Myra Connors MD Referral-OBGYN 02/25/2025 Refill [facility] [address] [place] [address] Ayden Orellana MD Status post surgical removal of nail matrix of toe of left foot 02/23/2025 Refill [facility] [address] [place] [address] Ayden Orellana MD Status post surgical removal of nail matrix of toe of left foot 02/22/2025 Refill [facility] [address] [place] [address] Joyce Tapia MD 02/22/2025 Travel 02/19/2025 1:00 PM EDT Clinical Support [facility] [address] [place] [address] Katherine Casper, public works inspector bilateral low back pain with left-sided sciatica 02/19/2025 Refill [facility] [address] [place] [address] Katherine Casper, MAKEDA 02/19/2025 Travel 02/17/2025 Refill [facility] [address] [place] [address] Emerson Keith MD Status post surgical removal of nail matrix of toe of left foot 02/11/2025 Refill [facility] [address] [place] [address] Joyce Tapia MD Muscle spasm 02/10/2025 Refill [facility] [address] [place] [address] Jenny Schmidt MD Status post surgical removal of nail matrix of toe of left foot 02/10/2025 Refill [facility] [address] [place] [address] Myra Connors MD Candidiasis 02/05/2025 Refill [facility] [address] [place] [address] Joyce Tapia MD 02/04/2025 Telephone [facility] [address] [place] [phone] Nelli Mancuso MD nurse status check 02/04/2025 Telephone [facility] [address] [place] [address] Joyce Tapia MD Med Refill 02/03/2025 Refill [facility] [address] [place] [address] Joyce Tapia MD Status post surgical removal of nail matrix of toe of left foot 02/02/2025 12:00 PM EDT Office Visit [facility] [address] [place] [address] Nelli Mancuso MD Swelling of finger of right hand (Primary Dx); Dietary counseling; Exercise counseling; Overweight 02/02/2025 Travel from Last 3 Months Immunizations Immunization Administration [...] Info) Description 05/06/2025 10:00 AM EST Telemedicine [facility] [address] [place] [address] Cristal Muhammad, PharmD [address] [place] [address] 06/04/2025 11:00 AM EST Clinical Support [facility] [address] [place] [address] Katherine Casper, RN [address] [place], [place] 08/26/2025 9:00 AM EST Office Visit [facility] [address] [place] [address] Dana Fields, OD [address] [place] [address] Health Maintenance Due Date Last Done Comments [...] Colorectal Cancer Screening 02/20/2025 Diabetes: Hemoglobin A1C 04/27/20252 025, 10/31/2024, 07/09/2024, Additional history exists Diabetes: Foot Exam 07/09/2025 07/09/2024, 07/09/2024, 07/09/2024, Additional history exists SDOH Screening 08/30/2025 08/30/2024 Alcohol/Substance Use Screening 09/14/2025 09/14/2024 Depression Screening 09/14/2025 09/14/2024, 09/15/19 Diabetes: Urine Protein Screening 09/25/2025 09/25/2024, 08/20/2021 Lipid Panel 09/25/2025 09/25/2024, 07/09/2024 Disability Screening 03/05/2026 03/05/2025 Cervical Cancer Screening 03/31/2026 HPV/Cotest 03/31/2026 03/31/2021 Pap Smear 03/31/2026 03/31/2021 Tobacco Screening 04/24/2026 04/24/2025 DTaP/Tdap/Td Vaccines (3 - Td or Tdap) [...] 8:23 PM EDT SED RATE BY MODIFIED SIOBHANERGREN Routine 03/04/2025 7:20 PM EDT C-REACTIVE PROTEIN [...] left-sided sciatica POCT GLYCATED HEMOGLOBIN, TOTAL Routine 01/25/2025 4:11 PM EDT Type 2 diabetes mellitus without complication, without long-term current use of insulin ([facility]) ALBUMIN, RANDOM URINE W/CREATININE Routine 09/25/2024 3:50 [...] PM EDT Narrative 03/04/2025 8:24 PM EDT [address] [address] XRay Report Signed Patient: Nayely Grover MR#: [id number] 541 : 1960 Acct:[id number] Age/Sex: 64 / F ADM Date: 03/04/25 Loc: HO.ED Attending Dr: Ordering Physician: David Juares Date of Service: 03/04/25 Procedure(s): XR foot LT min 3V Accession Number(s): [id number] cc: David Juares; Joyce Tapia MD CLINICAL HISTORY: pain 3 view left foot Comparison: CR/WV/SR - XR FOOT 3 OR MORE VIEWS LEFT - 03/01/25 10:42 EDT Findings: Bones intact. No dislocations. Mild midfoot spurring. Moderate-sized plantar calcaneal spur. No ankle effusion. No radiopaque foreign body. IMPRESSION: 1. No evidence of acute fracture or dislocation. [id number] DJD. This document has been electronically signed by: Ruben Bermeo MD on 03/04/2025 20:23:06 Dictated By: Ruben Bermeo MD Signed By: <Electronically signed by Ruben Bermeo MD in OV> 03/04/252022 DD/ 22 TD/TT: 03/04/252022 Field Attendant: Procedure Note Donotuseinterpreter, Image - 03/04/[address] [address] XRay Report Signed Patient: Nayely GroverMR#: [id number] 541 : 1960Acct:[id number] Age/Sex: 64 / FADM Date: 03/04/25 Loc: HO.ED Attending Dr: Ordering Physician: David Juares Date of Service: 03/04/25 Procedure(s): XR foot LT min 3V Accession Number(s): [id number] cc: David Juares; Joyce Tapia MD CLINICAL HISTORY: pain 3 view left foot Comparison: CR/WV/SR - XR FOOT 3 OR MORE VIEWS LEFT - 03/01/25 10:42 EDT Findings: Bones intact. No dislocations. Mild midfoot spurring. Moderate-sized plantar calcaneal spur. No ankle effusion. No radiopaque foreign body. IMPRESSION: 1. No evidence of acute fracture or dislocation. [id number] DJD. This document has been electronically signed by: Ruben Bermeo MD on 03/04/2025 20:23:06 Dictated By: Ruben Bermeo MD Signed By: <Electronically signed by Ruben Bermeo MD in OV> 03/04/252022 DD/ 22 TD/TT: 03/04/252022 Field Attendant: [facility] External Provider IMG XR PROCEDURES Edited Result - Final * CBC auto differential (03/04/2025 7:20 PM EDT) Only the most recent of2 resultswithin the time period is included. White Blood Count 10.3 4.8 - 10.8 X10*3/uL [facility] Red Blood Count 4.69 4.20 - 5.50 X10*6/uL [facility] Hemoglobin 14.0 12.0 - 16.0 g/dl [facility] Hematocrit 41.0 37.0 - 47.0 % [facility] Mean Corpuscular Volume 87.4 80.0 - 98.0 fL [facility] Mean Corpuscular Hemoglobin 29.9 27.0 - 33.0 pg [facility] Mean Corpuscular HGB Conc 34.1 31.0 - 35.0 g/dl [facility] Red Cell Distribution Width 12.9 11.0 - 16.0 % [facility] Platelet Count 178 160 - 400 X10*3/uL [facility] Mean Platelet Volume 9.6 9.4 - 12.3 fL [facility] Neutrophils Percent Auto 67.0 45 - 73 % [facility] Imm Gran Pct Auto 0.3 0.0 - 0.4 % [facility] Lymphocytes Percent Auto 23.9 20 - 40 % [facility] Monocytes Percent Auto 6.5 2 - 11 % [facility] Eosinophils Percent Auto 2.0 0 - 4 % [facility] Basophils Percent Auto 0.3 0 - 2 % [facility] NRBC Pct Auto 0.0 0.0 - 0.2 /100WBC [facility] Neutrophils Absolute Auto 6.9 2.0 - 8.3 x10*3/uL [facility] Imm Gran Abs Auto 0.03 0.00 - 0.03 X10*3/uL [facility] Lymphocytes Absolute Auto 2.5 1.2 - 4.9 X10*3/uL [facility] Monocytes Absolute Auto 0.7 0.1 - 1.2 X10*3/uL [facility] Eosinophils Absolute Auto 0.2 0.0 - 0.4 X10*3/uL [facility] Basophils Absolute Auto 0.0 0.0 - 0.2 X10*3/uL [facility] NRBC Abs Auto 0.000 0.0 - 0.012 X10*3/uL [facility] 03/04/2025 7:20 PM EDT 03/04/2025 7:24 PM EDT us Generic External Data Provider LAB BLOOD ORDERAB LES Final Result [facility] [address] [place] [address] [phone] * Partial Thromboplastin Time, Activated (APTT) (03/04/2025 7:20 PM EDT) Partial Thromboplastin Time 28.4 26.7 - 34.1 SEC [facility] 03/04/2025 7:20 PM EDT 03/04/2025 7:24 PM EDT Generic External Data Provider LAB BLOOD ORDERAB LES Final Result Performing Organization Address [facility] Co de Phone Number [facility] [address] [place] [phone] * Sed Rate by Modified Siobhanergren (03/04/2025 7:20 PM EDT) Erythrocyte Sedimentation Rate 7 0 - 20 MM/HR [facility] Comment:Patients with polycy themia and many hemoglobin abnormalitiesmay have depressed sed rates whereas patients with anemiamay have elevated sed rates. 03/04/2025 7:20 PM EDT 03/04/2025 7:24 PM EDT Generic External Data Provider LAB BLOOD ORDERAB LES Final Result Performing Organization Address [facility] de Phone Number [facility] [address] [place] [phone] * (ABNORMAL) Prothrombin Time-INR (03/04/2025 7:20 PM EDT) Prothrombin Time 10.8(L) 10.9 - 12.4 SEC [facility] INTERNATIONAL NORM RATIO 0.9 0.9 - 1.1 [facility] Comment:INTERNATIONAL NORMAL IZED RATIO (INR) [...] ORDERAB LES Final Result Performing Organization Address [facility] Co de Phone Number [facility] [address] [place] [phone] * C-reactive Protein (03/04/2025 7:20 PM EDT) C Reactive Protein <0.10 < or = 0.50 mg/dL [facility] 03/04/2025 7:20 PM EDT 03/04/2025 7:24 PM EDT Generic External Data Provider LAB BLOOD ORDERAB LES Final Result Performing Organization Address [facility] Phone Number [facility] [address] [place] [phone] * Uric acid (03/04/2025 7:20 PM EDT) Pathologist [facility] Uric Acid 3.1 2.4 - 5.7 mg/dL [facility] 03/04/2025 7:20 PM EDT 03/04/2025 7:24 PM EDT Generic External Data Provider LAB BLOOD ORDERAB LES Final Result Performing Organization Address [facility] de Phone Number [facility] [address] [place] [phone] * (ABNORMAL) Comprehensive Metabolic Panel (03/04/2025 7:20 PM EDT) Only the most recent of2 resultswithin the time period is included. Sodium 143 135 - 145 mmol/L [facility] Potassium 4.0 3.3 - 5.1 mmol/L [facility] Chloride 110(H) 96 - 108 mmol/L [facility] Carbon Dioxide 27 22 - 29 mmol/L [facility] Anion Gap 10(L) 12 - 20 [facility] Urea Nitrogen (BUN) 19(H) 9 - 16 mg/dL [facility] Creatinine, Serum 0.85 0.5 - 1.4 mg/dL [facility] Creatinine Clr Calc Pharmacy 69.4 [facility] Comment:Provided height and weight: 165.1 cm,74.843 kg.eGFR (calculated from the MDRD study equation) and eCrCl(calculated from the Cockcroft-Gault equation) are based ondifferent parameters and may not yield comparable results.If eCrCl result is absurd, please check patient'sheight/weight. Estimated Glomerular Filt Rate >60 [facility] Comment:Chronic Kidney Disea se: Estimated GFR < 60 mL/min/1.78j5Luvgbb Kidney Disease: Estimated GFR < 15 mL/min/1.73m2 Glucose 80 60 - 115 mg/dL [facility] Calcium 8.7 8.4 - 10.2 mg/dL [facility] Bilirubin, Total 0.3 0.0 - 1.0 mg/dL [facility] Aspartate Amino Transferase 24 5 - 31 U/L [facility] Alanine Aminotransferase 32(H) 0 - 31 U/L [facility] Total Protein 6.5 6.5 - 8.0 g/dL [facility] Albumin Level 4.1 3.5 - 5.0 g/dL [facility] Alkaline Phosphatase 92 39 - 117 U/L [facility] 03/04/2025 7:20 PM EDT 03/04/2025 7:24 PM EDT us Generic External Data Provider LAB BLOOD ORDERAB LES Final Result [facility] [address] [place] [address] [phone] * Lower Extremity Venous Duplex (03/01/2025 11:30 AM EDT) 03/01/2025 11:3 0 AM EDT Narrative [facility] - 03/01/2025 12:26 PM EDT [address] [address] Ultrasound Report Signed Patient: Nayely Grover MR#: [id number] 541 : 1960 Acct:[id number] Age/Sex: 64 / F ADM Date: 03/01/25 Loc: HO.ED Attending Dr: Ordering Physician: Rabia Maki Date of Service: 03/01/25 Procedure(s): US venous duplex LE LT Accession Number(s): [id number] cc: Joyce Tapia MD; Rabia Maki EXAMINATION: [...] Joe Powers MD 03/01/2025 12:23 PM EDT Dictated By: Joe Powers MD Signed By: <Electronically signed by Joe Powers MD in OV> 03/01/25 1223 DD/ 1130 TD/TT: 03/01/25 1200 Field Attendant: Procedure Note Donotuseinterpreter, Image - 03/01/[address] [address] Ultrasound Report Signed Patient: Nayely GroverMR#: [id number] 541 : 1960Acct:[id number] Age/Sex: 64 / FADM Date: 03/01/25 Loc: HO.ED Attending Dr: Ordering Physician: Rabia Maki Date of Service: 03/01/25 Procedure(s): US venous duplex LE LT Accession Number(s): [id number] cc: Joyce Tapia MD; Rabia Maki EXAMINATION: [...] 03/01/25 1223 DD/ 1130 TD/TT: 03/01/25 1200 Field Attendant: [facility] External Provider CV VASC ULAR PROCEDURES Edited Result - Final Performing Organization Address [facility] Co de Phone Number [facility] [address] [place] [phone] * Magnesium (03/01/2025 11:20 AM EDT) Magnesium 2.1 1.6 - 2.6 mg/dL [facility] 03/01/2025 11:2 0 AM EDT 03/01/2025 11:21 AM EDT Generic External Data Provider LAB BLOOD ORDERAB LES Final Result Performing Organization Address [facility] Co de Phone Number [facility] [address] [place] [phone] * (ABNORMAL) POCT GARETH-14 Urine Drug [...] 1:10 PM EDT Internal Pass Control Lot# [id number] Exp: 05-03-26 Joyce Tapia MD POINT OF CARE TEST ENTER/EDIT OR DERABLES Final Result * (ABNORMAL) POCT A1C (01/25/2025 4:11 PM EDT) Hemoglobin A1C 7.1(A) 4.0 - 5.7 % QC Media Lot # [id number] Lot# Expiration Date Blood 01/25/2025 4:11 PM EDT Joyce Tapia MD POINT OF CARE TEST ENTER/EDIT OR DERABLES Final Result * Albumin, Random Urine W/Creatinine (09/25/2024 3:50 PM EDT) Creatinine, Urine 83.95 mg/dL [facility] Microalbumin Urine <5.0 mg/L [facility] Microalbum Creatinine Ratio Ur TNP <30 ug/mg cr [facility] Comment:Unable to calculate albumin/creatinine ratio due to lowmicroalbumin or creatinine result. 09/25/2024 3:50 PM EDT 09/25/2024 5:55 PM EDT Joyce Tapia MD LAB URINE ORDERABLES Final Resul t Performing Organization Address City/[facility] Co de Phone Number [facility] [address] [place] [address] [phone] * Lipid Panel, Standard (09/25/2024 3:47 PM EDT) Triglycerides 56 <150 mg/dL [facility] Comment:Desirable Triglyceri de: less than 150 mg/dLBorderline High Triglyceride 150-199 mg/dLHigh Triglyceride: 200-499 mg/dLVery High Triglyceride: greater than or equal to 5OO mg/dL Cholesterol 119 <200 mg/dL [facility] Comment:Desirable Cholestero l: less than 200 mg/dLBorderline High Cholesterol: 200-239 mg/dLHigh Cholesterol: greater than 239 mg/dL LDL Cholesterol Calculated 47 <100 mg/dL [facility] Comment:Desirable LDL: less than 100 mg/dLNear Optimal/Above Optimal LDL: 110- 129 mg/dLBorderline High LDL: 130-159 mg/dLHigh LDL: 160-189 mg/dLVery High LDL: greater than or equal to 190 mg/dL HDL Cholesterol 61 >40 mg/dL [facility] Comment:Desirable HDL: great er than 40 mg/dL Note: This HDL assay may give artificially low results in patients with liver disease. 09/25/2024 3:47 PM EDT 09/25/2024 6:08 PM EDT Joyce Tapia MD LAB BLOOD ORDERABLES Final Resul t Performing Organization Address City/[facility]/ZIP Co de Phone Number [facility] [address] [place] [address] [phone] * BI Mammogram Screening Tomosynthesis Bilateral (05/28/2023 8:58 AM EST) Anatomical Region Laterality Modality Breast Bilateral Mammography 05/28/2023 8:58 AM EST Narrative 06/03/2023 8:41 AM EST [facility] [place] [address] Mammography Report Signed Patient: Nayely Grover MR#: [id number] : 1960 Acct:[id number] Age/Sex: 62 / F ADM Date: 05/28/23 Loc: MAMMO Attending Dr: Joyce Tapia MD Ordering Physician: Joyce Tapia MD Results: 1Negati ve Date of Service: 05/28/23 Follow Up: 1 Year From Orig inal Mammogram Procedure(s): MM tomosynthesis screening BI Accession Number(s): [id number] cc: Joyce Tapia MD EXAMINATION: MM SCREENING [...] in OV> 06/03/23 0837 DD/ 0858 TD/TT: Field Attendant: Procedure Note Donotuseinterpreter, Image - 06/03/[address] [place] [address] Mammography Report Signed Patient: Nayely GroverMR#: [id number] : 1960Acct:[id number] Age/Sex: 62 / FADM Date: 05/28/23 Loc: HO.MAMMO Attending Dr: Joyce Tapia MD Ordering Physician: Joyce Tapia MDResults: 1Negati ve Date of Service: 05/28/23Follow Up: 1 Year From Orig ina Mammogram Procedure(s): MM tomosynthesis screening BI Accession Number(s): [id number] cc: Joyce Tapia MD EXAMINATION: MM SCREENING [...] in OV> 06/03/23 0837 DD/ 0858 TD/TT: Field Attendant: Joyce Tapia MD IMG BI PROCEDURES Final Result * THINPREP PAP (03/31/2021 9:06 AM EDT) Clinical Information: H/O HYST, H/O CERVICAL DYSPLASIA [facility] COMMENT SEE COMMENT FOUNDATI ON [...] along with historic and current clinical information. Forming Mill Operator : SEE COMMENT [facility] Comment: JXM, CT(ASCP) CT screening location: [address] [address] Interpretation/R esult: Negative for intraepithelial lesion or malignancy. [facility] LMP: NONE GIVEN [facility] N LAB SYSTEM Prev. BX: NONE GIVEN [facility] Prev. PAP: 12/2016 NIL/NEG [facility] SOURCE: None given [facility] Statement Of Adequacy: SEE COMMENT [facility] Comment: Satisfactory for evaluation. Endocervical/transformation zone component absent. Age and/or menstrual status not provided 03/31/2021 9:06 AM EDT Noa MARINO LAB PATHOLOGY ORDERABLES Final Result Performing Organization Address [facility] Phone Number [facility] [place] [address], * HPV mRNA E6/E7 (03/31/2021 9:06 AM EDT) HPV nRNA E6/E7 Not Detected Not Detected [facility] Comment: Methodology: [employer] Underwriter-Mediated Amplification This assay detects E6/E7 viral messenger RNA (mRNA) from 14 high-risk HPV types (16,18,31,33,35,39,45,51,52,56,58,59,66,68). The analytical performance characteristics of this assay have been determined by [employer]. The modifications have not been cleared or approved by the FDA. This assay has been validated pursuant to the CLIA regulations and is used for clinical purposes. For additional information, please refer to http://education.CriticalBlue.GIDEEN/faq/UMS283i5 (This link if provided for information/ educational purposes only.) 03/31/2021 9:06 AM EDT Noa MARINO LAB BLOOD ORDERABLES Patt l Result Performing Organization Address [facility] Co de Phone Number [facility] [address] [place] [address], [place] * Hm Colonoscopy (02/20/2015) Colonoscopy Normal Normal Narrative Zohra Benavidez - 02/20/2015 Repeat in 10 year us Historical Provider HEALTH MAINTENANCE Final Result from Last 3 Months or Most Recently Relevant to Health Maintenance Insurance [employer]3 Care Teams Back Maker Relationship Specialty Start Date End Date Jenny Schmidt MD [address] [place] [address] PCP - General Family Medicine 05/02/25 Cristal Muhammad PharmD [address] [place] [address] Pharmacist Pharmacy 08/07/24
--- OUTSIDE RECORDS SUMMARY | 2025-05-04 09:55 | XMS_ITS | Encounter Summary ---
Author Organization [employer] Address 75 [facility] 7t [place] [address] Care Team Providers Care Toxicologist Name Role Phone Joyce Tapia MD Primary Care Provider [phone] Cristal Muhammad PharmD Unavailable [phone] Jenny Schmidt MD Primary Care Provider [phone] Reason for Visit * Reason Onset Date Comments Med Refill 07/25/2024 Encounter Details Date Type Department Care Team (Late st Contact Info) Description 07/25/[address] [facility] [address] [place] [address] Emerson Keith MD [address] [place] [address] Status post surgical removal of nail matrix [...] Upcoming Encounters Date Type Department Care Team ([facility] st Contact Info) Description 05/06/2025 10:00 AM EST Telemedicine [facility] MED [facility] PEDS [address] [place] [address] Cristal Muhammad, PharmD [address] [place] [address] 06/04/2025 11:00 AM EST Clinical Support [facility] [address] [place] [address] Katherine Casper, RN 505 [place] [address] 08/26/2025 9:00 AM EST Office Visit [facility] OPTOMETRY [address] [place] [address] Dana Fields, OD [address] [place] [address] documented as of this encounter Visit Diagnoses Diagnosis Status post surgical removal of nail matrix of toe of left foot documented in this encounter Care Teams Toxicologist Relationship Specialty Start Date End Date Joyce Tapia MD [address] [place] [address] PCP - General Family Medicine 06/19/12 05/01/25 Jenny Schmidt MD 505 [place] [address] PCP - General Family Medicine 05/02/25 Cristal Muhammad PharmD [address] [place] [address] Pharmacist Pharmacy 08/07/24 documented as of this encounter
--- OUTSIDE RECORDS SUMMARY | 2025-05-04 09:55 | XMS_ITS | Encounter Summary ---
Author Organization [employer] Address 75 [facility] 7t [place] [address] Care Team Providers Care Business Area Manager Name Role Phone Joyce Tapia MD Primary Care Provider [phone] Cristal Muhammad PharmD Unavailable [phone] Jenny Schmidt MD Primary Care Provider [phone] Reason for Visit * Reason Onset Date Comments Med Refill 04/14/2025 Encounter Details Date Type Department Care Team ([facility] st Contact Info) Description 04/14/2025 Refill [facility]ED[facility] [address] [place], [place] [phone] Joyce Tapia MD 505 [place], [place] [phone] Status post surgical removal of nail matrix [...] the past 12 months, has t he [employer], gas, oil or water company threatened to [...] Info) Description 05/06/2025 10:00 AM EST Telemedicine [facility] MED & PEDS [address] [place] [address] Cristal Muhammad, PharmD [address] [place] [address] 06/04/2025 11:00 AM EST Clinical Support [facility] MED [facility] PED[facility] [address] [place] [address] Katherine Casper, RN [address] [place] [address] 08/26/2025 9:00 AM EST Office Visit [facility] OPTOMETRY [address] [place] [address] [place] Fields, OD [address] [place] [address] documented as of this encounter Visit Diagnoses Diagnosis Status post surgical removal of nail matrix of toe of left foot documented in this encounter Additional Health Concerns Assessment Noted Time PHQ-9 Depression Total Score: 7 09/15/19 25 9:02 AM EDT documented as of this encounter Care Teams Business Area Manager Relationship Specialty Start Date End Date Joyce Tapia MD [address] [place] [address] PCP - General Family Medicine 06/19/12 05/01/25 Jenny Schmidt MD [address] [place] [address] PCP - General Family Medicine 05/02/25 Cristal Muhammad PharmD [address] [place] [address] Pharmacist Pharmacy 08/07/24 documented as of this encounter
--- OUTSIDE RECORDS SUMMARY | 2025-05-04 09:55 | XMS_ITS | Encounter Summary ---
Author Organization [employer] Address 75 [facility] 7t [place] [address] Care Team Providers Care Tack Cutter Name Role Phone Joyce Tapia MD Primary Care Provider [phone] Cristal Muhammad PharmD Unavailable [phone] Jenny Schmidt MD Primary Care Provider [phone] Reason for Visit * Reason Comments Med Refill Encounter Details Date Type Department Care Team (Late Contact Info) Description 10/24/2023 Refill [facility] MEDICINE [address] [place] [address] Joyce Tapia MD [address] [place], [place] [phone] Status post surgical removal of nail matrix [...] Department Care Team (Late Contact Info) Description 05/06/2025 10:00 AM EST Telemedicine [facility] MED [facility] PEDS [address] [place], [place] [phone] Cristal Muhammad, PharmD [address] [place] [address] 06/04/2025 11:00 AM EST Clinical Support [facility] MED & PEDS [address] [place] [address] Katherine Casper, RN [address] [place] 08/26/2025 9:00 AM EST Office Visit [facility] OPTOMETRY [address] [place] [address] [place] Fields, OD [address] [place] [address] documented as of this encounter Visit Diagnoses Diagnosis Status post surgical removal of nail matrix of toe of left foot documented in this encounter Care Teams Tack Cutter Relationship Specialty Start Date End Date Joyce Tapia MD [address] [place] [address] PCP - General Family Medicine 06/19/12 05/01/25 Jenny Schmidt MD [address] [place], [place] [phone] PCP - General Family Medicine 05/02/25 Cristal Muhammad PharmD [address] [place] [address] Pharmacist Pharmacy 08/07/24 documented as of this encounter
--- OUTSIDE RECORDS SUMMARY | 2025-05-04 09:55 | XMS_ITS | Encounter Summary ---
Author Organization [employer] Address 75 [facility] 7t [place] [address] Care Team Providers Care Payroll And Benefits Coordinator Name Role Phone Joyce Tapia MD Primary Care Provider [phone] Cristal Muhammad PharmD Unavailable [phone] Jenny Schmidt MD Primary Care Provider [phone] Reason for Visit * Reason Onset Date Comments Med Refill 10/24/2023 Encounter Details Date Type Department Care Team ([facility] st Contact Info) Description 10/24/2023 Telephone [facility] MEDICINE [address] [place] [address] Joyce Tapia MD [address] [place], [place] [phone] Med Refill Social History Tobacco Use Types [...] immediate release tablet To be sent to: [facility] - [place], [place] - [address] [facility] documented in this encounter Plan of Treatment Upcoming Encounters Date Type Department Care Team (Late st Contact Info) Description 05/06/2025 10:00 AM EST Telemedicine [facility] MED & PEDS [address] [place] [address] Cristal Muhammad PharmD [address] [place] [address] 06/04/2025 11:00 AM EST Clinical Support [facility] [address] [place] [address] Katherine Casper, RN 505 [place] [address] 08/26/2025 9:00 AM EST Office Visit [facility] OPTOMETRY [address] [place] [address] [place] Fields, OD [address] [place] [address] documented as of this encounter Visit Diagnoses Not on filedocumented in this encounter Care Teams Payroll And Benefits Coordinator Relationship Specialty Start Date End Date Joyce Tapia MD [address] [place] [address] PCP - General Family Medicine 06/19/12 05/01/25 Jenny Schmidt MD [address] [place] [address] PCP - General Family Medicine 05/02/25 Cristal Muhammad, Deonte [address] [place] [address] Pharmacist Pharmacy 08/07/24 documented as of this encounter
--- OUTSIDE RECORDS SUMMARY | 2025-05-04 09:55 | XMS_ITS | Encounter Summary ---
Author Organization [employer] Address 75 [facility] 7t [place] [address] Care Team Providers Care Explosive Specialist Name Role Phone Joyce Tapia MD Primary Care Provider [phone] Cristal Muhammad PharmD Unavailable [phone] Jenny Schmidt MD Primary Care Provider [phone] Reason for Visit * Reason Onset Date Comments Med Refill 08/15/2024 Encounter Details Date Type Department Care Team (Late st Contact Info) Description 08/15/[address] [facility] MED & PEDS [address] [place], [place] [phone] Joyce Tapia MD 505 [place] [address] Status post surgical removal of nail matrix [...] Upcoming Encounters Date Type Department Care Team ([facility] st Contact Info) Description 05/06/2025 10:00 AM EST Telemedicine [facility] MED & PEDS [address] [place] [address] Cristal Muhammad, PharmD [address] [place] [address] 06/04/2025 11:00 AM EST Clinical Support [facility] MED & PEDS [address] [place] [address] Katherine Casper, RN 505 [place] [address] 08/26/2025 9:00 AM EST Office Visit [facility] OPTOMETRY [address] [place] [address] [place] Fields, OD 230 [place] [address] documented as of this encounter Visit Diagnoses Diagnosis Status post surgical removal of nail matrix of toe of left foot documented in this encounter Care Teams Explosive Specialist Relationship Specialty Start Date End Date Joyce Tapia MD [address] [place] [address] PCP - General Family Medicine 06/19/12 05/01/25 Jenny Schmidt MD [address] [place] [address] PCP - General Family Medicine 05/02/25 Cristal Muhammad PharmD [address] [place] [address] Pharmacist Pharmacy 08/07/24 documented as of this encounter
--- OUTSIDE RECORDS SUMMARY | 2025-05-04 09:55 | XMS_ITS ---
Author Organization [employer] Address [address] [place] [address] 7t [place] [address] Care Team Providers Care Assistant Program Director Name Role Phone Cristal Muhammad PharmD Unavailable Jenny Schmidt MD Primary Care Provider [phone] INSTRUMENT LENS GENERATOR Status:Enrolled (Active) Start date:10/22/2022 Enrollment date:10/22/2022 Case Team Name Relationship Phone Katherine Casper RN(Responsible Staff) Registered Nurse Continued Care and Services Coordination
--- OUTSIDE RECORDS SUMMARY | 2025-05-04 09:55 | XMS_ITS | Encounter Summary ---
Author Organization [employer] Address 75 [facility] 7t [place] [address] Care Team Providers Care Clinical Exercise Specialist Name Role Phone Joyce Tapia MD Primary Care Provider [phone] Cristal Muhammad PharmD Unavailable [phone] Jenny Schmidt MD Primary Care Provider [phone] Reason for Visit * Reason Onset Date Comments Med Refill 07/19/2024 Encounter Details Date Type Department Care Team ([facility] st Contact Info) Description 07/19/2024 Refill [facility] MED [facility] PEDS [address] [place], [place] [phone] Joyce Tapia MD [address] [place], [place] [phone] Social History Tobacco Use Types Packs/Day Years [...] [facility] MED & PEDS [address] [place] [address] Cristal Muhammad, PharmD 230 [place] [address] 06/04/2025 11:00 AM EST Clinical Support [facility] MED & PEDS [address] [place] [address] Katherine Casper, RN 505 [place] [address] 08/26/2025 9:00 AM EST Office Visit [facility] OPTOMETRY [address] [place] [address] [place] Fields, OD 230 [place] [address] documented as of this encounter Visit Diagnoses Not on filedocumented in this encounter Care Teams Clinical Exercise Specialist Relationship Specialty Start Date End Date Joyec Tapia MD [address] [place] [address] PCP - General Family Medicine 06/19/12 05/01/25 Jenny Schmidt MD [address] [place] [address] PCP - General Family Medicine 05/02/25 Cristal Muhammad, BobD [address] [place] [address] Pharmacist Pharmacy 08/07/24 documented as of this encounter
--- OUTSIDE RECORDS SUMMARY | 2025-05-04 09:55 | XMS_ITS | Encounter Summary ---
Author Organization [employer] Address 75 [facility] 7t [place] [address] Care Team Providers Care Yard Switch Operator Name Role Phone Joyce Tapia MD Primary Care Provider [phone] Cristal Muhammad PharmD Unavailable [phone] Jenny Schmidt MD Primary Care Provider [phone] Reason for Visit * Reason Comments Med Refill Encounter Details Date Type Department Care Team ([facility] st Contact Info) Description 04/12/2024 Refill [facility] MED & PEDS [address] [place], [place] [phone] Joyce Tapia MD 505 [place], [place] [phone] Status post surgical removal of nail matrix [...] Info) Description 05/06/2025 10:00 AM EST Telemedicine [facility] MED & PEDS [address] [place] [address] Cristal Muhammad PharmD 230 [place] [address] 06/04/2025 11:00 AM EST Clinical Support [facility] MED & PEDS [address] [place] [address] Katherine Casper, RN 505 [place] [address] 08/26/2025 9:00 AM EST Office Visit [facility] OPTOMETRY [address] [place] [address] [place] Fields, OD [address] [place] [address] documented as of this encounter Visit Diagnoses Diagnosis Status post surgical removal of nail matrix of toe of left foot documented in this encounter Care Teams Yard Switch Operator Relationship Specialty Start Date End Date Joyce Tapia MD [address] [place] [address] PCP - General Family Medicine 06/19/12 05/01/25 Jenny Schmidt MD [address] [place] [address] PCP - General Family Medicine 05/02/25 Cristal Muhammad PharmD [address] [place] [address] Pharmacist Pharmacy 08/07/24 documented as of this encounter
--- OUTSIDE RECORDS SUMMARY | 2025-05-04 09:55 | XMS_ITS | Encounter Summary ---
Author Organization [employer] Address [address] [facility] [address] 7t [place] [address] Care Team Providers Care Manager Clinical Name Role Phone Joyce Tapia MD Primary Care Provider [phone] Cristal Muhammad PharmD Unavailable [phone] Jenny Schmidt MD Primary Care Provider [phone] Reason for Visit * Reason Onset Date Comments Med Refill 04/18/2024 Encounter Details Date Type Department Care Team (Late st Contact Info) Description 04/18/2024 Refill [facility] MEDICINE [address] [place], [place] [phone] Amber Palacio MD [address] [place], [place] [phone] Smoker Social History Tobacco Use Types Packs/Day [...] Info) Description 05/06/2025 10:00 AM EST Telemedicine [facility] MED & PEDS [address] [place] [address] Cristal Muhammad PharmD [address] [place] [address] 06/04/2025 11:00 AM EST Clinical Support [facility] MED & PEDS [address] [place] [address] Katherine Casper, RN 505 [place] [address] 08/26/2025 9:00 AM EST Office Visit [facility] OPTOMETRY [address] [place] [address] [place] Fields, OD [address] [place] [address] documented as of this encounter Visit Diagnoses Diagnosis Smoker Tobacco use disorder documented in this encounter Care Teams Manager Clinical Relationship Specialty Start Date End Date Joyce Tapia MD [address] [place] [address] PCP - General Family Medicine 06/19/12 05/01/25 Jenny Schmidt MD [address] [place] [address] PCP - General Family Medicine 05/02/25 Cristal Muhammad PharmD [address] [place] [address] Pharmacist Pharmacy 08/07/24 documented as of this encounter
--- OUTSIDE RECORDS SUMMARY | 2025-05-04 09:55 | XMS_ITS | Encounter Summary ---
Author Organization [employer] Address 75 [facility] 7t [place] [address] Care Team Providers Care Railway Signal Electrician Name Role Phone Joyce Tapia MD Primary Care Provider [phone] Cristal Muhammad PharmD Unavailable [phone] Jenny Schmidt MD Primary Care Provider [phone] Reason for Visit * Reason Onset Date Comments Med Refill 04/11/2024 Encounter Details Date Type Department Care Team ([facility] st Contact Info) Description 04/11/2024 Telephone [facility] MED & PEDS [address] [place], [place] [phone] Joyce Tapia MD [address] [place], [place] [phone] Med Refill Social History Tobacco Use Types [...] immediate release tablet To be sent to: [facility] - [place], [place] - [address] [place] [address] documented in this encounter Plan of Treatment Upcoming Encounters Date Type Department Care Team ([facility] st Contact Info) Description 05/06/2025 10:00 AM EST Telemedicine [facility] MED & PEDS [address] [place] [address] Cristal Muhammad, BobD [address] [place] [address] 06/04/2025 11:00 AM EST Clinical Support [facility] MED & PEDS [address] [place] [address] Katherine Casper, RN 505 [place] [address] 08/26/2025 9:00 AM EST Office Visit [facility] OPTOMETRY [address] [place] [address] [place] Fields, OD [address] [place] [address] documented as of this encounter Visit Diagnoses Not on filedocumented in this encounter Care Teams Railway Signal Electrician Relationship Specialty Start Date End Date Joyce Tapia MD [address] [place] [address] PCP - General Family Medicine 06/19/12 05/01/25 Jenny Schmidt MD [address] [place] [address] PCP - General Family Medicine 05/02/25 Cristal Muhammad PharmD [address] [place] [address] Pharmacist Pharmacy 08/07/24 documented as of this encounter
--- OUTSIDE RECORDS SUMMARY | 2025-05-04 09:55 | XMS_ITS | Encounter Summary ---
Author Organization [employer] Address 75 [facility] 7t [place] [address] Care Team Providers Care Business Risk Analyst Name Role Phone Joyce Tapia MD Primary Care Provider [phone] Cristal Muhammad PharmD Unavailable [phone] Jenny Schmidt MD Primary Care Provider [phone] Reason for Visit * Reason Onset Date Comments Med Refill 04/08/2025 Encounter Details Date Type Department Care Team ([facility] st Contact Info) Description 04/08/2025 Refill [facility] MED & PEDS [address] [place], [place] [phone] Ayden Orellana MD 505 [place] [address] Status post surgical removal of nail matrix [...] Upcoming Encounters Date Type Department Care Team ([facility] st Contact Info) Description 05/06/2025 10:00 AM EST Telemedicine [facility] MED & PEDS [address] [place] [address] Cristal Muhammad, PharmD [address] [place] [address] 06/04/2025 11:00 AM EST Clinical Support [facility] MED & PEDS [address] [place] [address] Katherine Casper, RN 505 [place] [address] 08/26/2025 9:00 AM EST Office Visit [facility] OPTOMETRY [address] [place] [address] Dana Fields, OD 230 [place] [address] documented as of this encounter Visit Diagnoses Diagnosis Status post surgical removal of nail matrix of toe of left foot documented in this encounter Additional Health Concerns Assessment Noted Time PHQ-9 Depression Total Score: 7 09/15/19 25 9:02 AM EDT documented as of this encounter Care Teams Business Risk Analyst Relationship Specialty Start Date End Date Joyce Tapia MD [address] [place] [address] PCP - General Family Medicine 06/19/12 05/01/25 Jenny Schmidt MD 505 [place] [address] PCP - General Family Medicine 05/02/25 Cristal Muhammad PharmD [address] [place] [address] Pharmacist Pharmacy 08/07/24 documented as of this encounter
--- OUTSIDE RECORDS SUMMARY | 2025-05-04 09:55 | XMS_ITS | Encounter Summary ---
Author Organization [employer] Address 75 [facility] 7t [place] [address] Care Team Providers Care Appian Developer Name Role Phone Joyce Tapia MD Primary Care Provider [phone] Cristal Muhammad PharmD Unavailable [phone] Jenny Schmidt MD Primary Care Provider [phone] Reason for Visit * Reason Onset Date Comments Med Refill 09/05/2024 Encounter Details Date Type Department Care Team (Late st Contact Info) Description 09/05/2024 Refill [facility] CH[facility] MED & PEDS 505 [place], [place] [phone] Joyce Tapia MD 505 [place] [address] Status post surgical removal of nail matrix [...] Encounters Date Type Department Care Team ([facility] st Contact Info) Description 05/06/2025 10:00 AM EST Telemedicine [facility] MED & PEDS 505 [place] [address] Cristal Muhammad, PharmD 230 [place] [address] 06/04/2025 11:00 AM EST Clinical Support [facility] MED & PEDS 505 [place] [address] Katherine Casper, RN 505 [place] [address] 08/26/2025 9:00 AM EST Office Visit [facility] OPTOMETRY [address] [place] [address] Dana Fields, OD 230 [place] [address] documented as of this encounter Visit Diagnoses Diagnosis Status post surgical removal of nail matrix of toe of left foot documented in this encounter Care Teams Appian Developer Relationship Specialty Start Date End Date Joyce Tapia MD 230 [place] [address] PCP - General Family Medicine 06/19/12 05/01/25 Jenny Schmidt MD 505 [place] [address] PCP - General Family Medicine 05/02/25 Cristal Muhammad PharmD 230 [place] [address] Pharmacist Pharmacy 08/07/24 documented as of this encounter
--- OUTSIDE RECORDS SUMMARY | 2025-05-04 09:55 | XMS_ITS | Encounter Summary ---
Author Organization [employer] Address 75 [facility] 7t [place] [address] Care Team Providers Care Television Antenna Installer Name Role Phone Joyce Tapia MD Primary Care Provider [phone] Cristal Muhammad PharmD Unavailable [phone] Jenny Schmidt MD Primary Care Provider [phone] Encounter Details Date Type Department Care Team (Latest Contact Info) Description 03/21/2019 Abstract [facility] CONVERSIONS Dental, Provider, DDS Social History Tobacco [...] 05/06/2025 10:00 AM EST Telemedicine [facility] MED & PEDS 505 [place] [address] Cristal Muhammad, PharmD 230 [place] [address] 06/04/2025 11:00 AM EST Clinical Support [facility] MED & PEDS 505 [place] [address] Katherine Casper, RN 505 [place] [address] 08/26/2025 9:00 AM EST Office Visit [facility] OPTOMETRY [address] [place] [address] Dana Fields, OD 230 [place] [address] documented as of this encounter Visit Diagnoses Not on filedocumented in this encounter Care Teams Television Antenna Installer Relationship Specialty Start Date End Date Joyce Tapia MD [address] [place] [address] PCP - General Family Medicine 06/19/12 05/01/25 Jenny Schmidt MD [address] [place] [address] PCP - General Family Medicine 05/02/25 Cristal Muhammad PharmD 230 [place] [address] Pharmacist Pharmacy 08/07/24 documented as of this encounter
--- OUTSIDE RECORDS SUMMARY | 2025-05-04 09:55 | XMS_ITS | Encounter Summary ---
Author Organization [employer] Address 75 [facility] 7t [place] [address] Care Team Providers Care Flatwork Supervisor Name Role Phone Joyce Tapia MD Primary Care Provider [phone] Cristal Muhammad PharmD Unavailable [phone] Jenny Schmidt MD Primary Care Provider [phone] Reason for Visit * Reason Comments Med Refill Encounter Details Date Type Department Care Team (Late Contact Info) Description 11/04/2023 Refill [facility] MED & PEDS [address] [place] [address] Joyce Tapia MD 505 [place] [address] Status post surgical removal of nail matrix [...] Info) Description 05/06/2025 10:00 AM EST Telemedicine [facility] MED & PEDS [address] [place] [address] Muhammad, Cristal, PharmD 230 [place] [address] 06/04/2025 11:00 AM EST Clinical Support [facility] CH[facility] MED & PEDS 505 [place] [address] Katherine Casper, RN 505 [place] [address] 08/26/2025 9:00 AM EST Office Visit [facility] OPTOMETRY [address] [place] [address] Dana Fields, OD [address] [place] [address] documented as of this encounter Visit Diagnoses Diagnosis Status post surgical removal of nail matrix of toe of left foot documented in this encounter Care Teams Flatwork Supervisor Relationship Specialty Start Date End Date Joyce Tapia MD 230 [place] [address] PCP - General Family Medicine 06/19/12 05/01/25 Jenny Schmidt MD 505 [place], [place] [phone] PCP - General Family Medicine 05/02/25 Cristal Muhammad PharmD 230 [place] [address] Pharmacist Pharmacy 08/07/24 documented as of this encounter
--- OUTSIDE RECORDS SUMMARY | 2025-05-04 09:55 | XMS_ITS | Encounter Summary ---
Author Organization [employer] Address 75 [facility] 7t [place] [address] Care Team Providers Care Motorcycle Builder Name Role Phone Joyce Tapia MD Primary Care Provider [phone] Cristal Muhammad PharmD Unavailable [phone] Jenny Schmidt MD Primary Care Provider [phone] Reason for Visit * Reason Onset Date Comments Med Refill 09/24/2024 Encounter Details Date Type Department Care Team (Late st Contact Info) Description 09/24/2024 Refill [facility] CHC MED & PEDS [address] [place], [place] [phone] Joyce Tapia MD 505 [place] [address] Status post surgical removal of nail matrix [...] [facility] MED & PEDS 505 [place] [address] Cristal Muhammad, PharmD 230 [place] [address] 06/04/2025 11:00 AM EST Clinical Support [facility] MED & PEDS 505 [place] [address] Katherine Casper, MAKEDA 505 [place] [address] 08/26/2025 9:00 AM EST Office Visit [facility] OPTOMETRY [address] [place] [address] Dana Fields, OD [address] [place] [address] documented as of this encounter Visit Diagnoses Diagnosis Status post surgical removal of nail matrix of toe of left foot documented in this encounter Additional Health Concerns Assessment Noted Time PHQ-9 Depression Total Score: 7 09/15/19 25 9:02 AM EDT documented as of this encounter Care Teams Motorcycle Builder Relationship Specialty Start Date End Date Joyce Tapia MD [address] [place] [address] PCP - General Family Medicine 06/19/12 05/01/25 Jenny Schmidt MD [address] [place] [address] PCP - General Family Medicine 05/02/25 Cristal Muhammad PharmD 230 [place] [address] Pharmacist Pharmacy 08/07/24 documented as of this encounter
--- OUTSIDE RECORDS SUMMARY | 2025-05-04 09:56 | XMS_ITS | Encounter Summary ---
Author Organization [employer] Address 75 [facility] 7t [place] [address] Care Team Providers Care Programming Manager Name Role Phone Joyce Tapia MD Primary Care Provider [phone] Cristal Muhammad PharmD Unavailable [phone] Jenny Schmidt MD Primary Care Provider [phone] Reason for Visit * Reason Onset Date Comments Med Refill 10/24/2024 Encounter Details Date Type Department Care Team (Late st Contact Info) Description 10/24/2024 Refill [facility] MEDICINE 230 [place] [address] Ayden Orellana MD 505 [place] [address] Status post surgical removal of nail matrix [...] Info) Description 05/06/2025 10:00 AM EST Telemedicine [facility] MED & PEDS 505 [place] [address] Cristal Muhammad, PharmD 230 [place] [address] 06/04/2025 11:00 AM EST Clinical Support [facility] MED & PEDS 505 [place] [address] Katherine Casper, MAKEDA 505 [place] [address] 08/26/2025 9:00 AM EST Office Visit [facility] OPTOMETRY [address] [place] [address] Dana Fields, OD 230 [place] [address] documented as of this encounter Visit Diagnoses Diagnosis Status post surgical removal of nail matrix of toe of left foot documented in this encounter Additional Health Concerns Assessment Noted Time PHQ-9 Depression Total Score: 7 09/15/19 25 9:02 AM EDT documented as of this encounter Care Teams Programming Manager Relationship Specialty Start Date End Date Joyce Tapia MD [address] [place] [address] PCP - General Family Medicine 06/19/12 05/01/25 Jenny Schmidt MD [address] [place] [address] PCP - General Family Medicine 05/02/25 Cristal Muhammad PharmD [address] [place] [address] Pharmacist Pharmacy 08/07/24 documented as of this encounter
--- OUTSIDE RECORDS SUMMARY | 2025-05-04 09:56 | XMS_ITS | Encounter Summary ---
Author Organization [employer] Address [address] [facility] 7t [place] [address] Care Team Providers Care Casket Liner Name Role Phone Joyce Tapia MD Primary Care Provider [phone] Cristal Muhammad PharmD Unavailable [phone] Jenny Schmidt MD Primary Care Provider [phone] Reason for Visit * Reason Onset Date Comments Med Refill 02/28/2024 Encounter Details Date Type Department Care Team ([facility] st Contact Info) Description 02/28/2024 Telephone [facility] MEDICINE 230 [place], [place] [phone] Joyce Tapia MD [address] [place], [place] [phone] Med Refill Social History Tobacco Use Types [...] immediate release tablet To be sent to: [facility] - [address] documented in this encounter Plan of Treatment Upcoming Encounters Date Type Department Care Team ([facility] st Contact Info) Description 05/06/2025 10:00 AM EST Telemedicine [facility] MED & PEDS 505 [place] [address] Cristal Muhammad, PharmD 230 [place] [address] 06/04/2025 11:00 AM EST Clinical Support [facility] MED & PEDS 505 [place] [address] Katherine Casper, RN 505 [place] [address] 08/26/2025 9:00 AM EST Office Visit [facility] OPTOMETRY [address] [place] [address] Dana Fields, OD 230 [place] [address] documented as of this encounter Visit Diagnoses Not on filedocumented in this encounter Care Teams Casket Liner Relationship Specialty Start Date End Date Joyce Tapia MD [address] [place] [address] PCP - General Family Medicine 06/19/12 05/01/25 Jenny Schmidt MD [address] [place] [address] PCP - General Family Medicine 05/02/25 Cristal Muhammad PharmD [address] [place] [address] Pharmacist Pharmacy 08/07/24 documented as of this encounter
--- OUTSIDE RECORDS SUMMARY | 2025-05-04 09:56 | XMS_ITS | Encounter Summary ---
Author Organization [employer] Address 75 [facility] 7t [place] [address] Care Team Providers Care Furrier Designer Name Role Phone Joyce Tapia MD Primary Care Provider [phone] Cristal Muhammad PharmD Unavailable [phone] Jenny Schmidt MD Primary Care Provider [phone] Reason for Visit * Reason Comments Med Refill Encounter Details Date Type Department Care Team (Late st Contact Info) Description 06/07/2023 Refill [facility] MED & PEDS 505 [place] [address] Ev Lewis, ANP [address] [place], [place] [phone] Status post surgical removal of nail matrix [...] [facility] MED & PEDS [address] [place] [address] Cristal Muhammad, PharmD [address] [place] [address] 06/04/2025 11:00 AM EST Clinical Support [facility] CHC MED & PEDS 505 [place] [address] Katherine Casper, RN 505 [place], [place] 08/26/2025 9:00 AM EST Office Visit [facility] OPTOMETRY [address] [place] [address] Dana Fields, OD 230 [place] [address] documented as of this encounter Visit Diagnoses Diagnosis Status post surgical removal of nail matrix of toe of left foot documented in this encounter Care Teams Furrier Designer Relationship Specialty Start Date End Date Joyce Tapia MD 230 [place] [address] PCP - General Family Medicine 06/19/12 05/01/25 Jenny Schmidt MD 505 [place], [place] [phone] PCP - General Family Medicine 05/02/25 Cristal Muhammad PharmD [address] [place] [address] Pharmacist Pharmacy 08/07/24 documented as of this encounter
--- OUTSIDE RECORDS SUMMARY | 2025-05-04 09:56 | XMS_ITS | Encounter Summary ---
Author Organization [employer] Address 75 [facility] 7t [place] [address] Care Team Providers Care Web Content Director Name Role Phone Joyce Tapia MD Primary Care Provider [phone] Cristal Muhammad PharmD Unavailable [phone] Jenny Schmidt MD Primary Care Provider [phone] Reason for Visit * Reason Comments Med Refill Encounter Details Date Type Department Care Team (Late st Contact Info) Description 10/03/2023 Refill [facility] MED & PEDS 505 [place] [address] Joyce Tapia MD 505 [place], [place] [phone] Arthropathy Social History Tobacco Use Types Packs/Day [...] Info) Description 05/06/2025 10:00 AM EST Telemedicine [facility] MED & PEDS 505 [place], [place] [phone] Cristal Muhammad, PharmD 230 [place] [address] 06/04/2025 11:00 AM EST Clinical Support [facility] CHC MED & PEDS 505 [place] [address] Katherine Casper, MAKEDA 505 [place], [place] 08/26/2025 9:00 AM EST Office Visit [facility] OPTOMETRY [address] [place] [address] Dana Fields, OD 230 [place] [address] documented as of this encounter Visit Diagnoses Diagnosis Arthropathy Unspecified arthropathy, site unspecified documented in this encounter Care Teams Web Content Director Relationship Specialty Start Date End Date Joyce Tapia MD 230 [place] [address] PCP - General Family Medicine 06/19/12 05/01/25 Jenny Schmidt MD 505 [place] [address] PCP - General Family Medicine 05/02/25 Cristal Muhammad PharmD 230 [place] [address] Pharmacist Pharmacy 08/07/24 documented as of this encounter
--- OUTSIDE RECORDS SUMMARY | 2025-05-04 09:56 | XMS_ITS | Encounter Summary ---
Author Organization [employer] Address [address] [facility] [address] 7t [place] [address] Care Team Providers Care Tin Pot Operator Name Role Phone Joyce Tapia MD Primary Care Provider [phone] Cristal Muhammad PharmD Unavailable [phone] Jenny Schmidt MD Primary Care Provider [phone] Reason for Visit * Reason Onset Date Comments Med Refill 02/10/2025 Encounter Details Date Type Department Care Team (Late st Contact Info) Description 02/10/[address] [facility]ALK[facility] 230 [place], [place] [phone] Myra Connors MD 230 [place], [place] [phone] Candidiasis Social History Tobacco Use Types Packs/Day [...] 10:00 AM EST Telemedicine [facility] MED & PEDS 505 [place] [address] Cristal Muhammad, PharmD 230 [place] [address] 06/04/2025 11:00 AM EST Clinical Support [facility] MED & PEDS 505 [place] [address] Katherine Casper, RN 505 [place] [address] 08/26/2025 9:00 AM EST Office Visit [facility] OPTOMETRY [address] [place] [address] Dana Fields, OD 230 [place] [address] documented as of this encounter Visit Diagnoses Diagnosis Candidiasis documented in this encounter Additional Health Concerns Assessment Noted Time PHQ-9 Depression Total Score: 7 09/15/19 25 9:02 AM EDT documented as of this encounter Care Teams Tin Pot Operator Relationship Specialty Start Date End Date Joyce Tapia MD 230 [place] [address] PCP - General Family Medicine 06/19/12 05/01/25 Jenny Schmidt MD [address] [place] [address] PCP - General Family Medicine 05/02/25 Cristal Muhammad PharmD 230 [place] [address] Pharmacist Pharmacy 08/07/24 documented as of this encounter
--- OUTSIDE RECORDS SUMMARY | 2025-05-04 09:56 | XMS_ITS | Encounter Summary ---
Author Organization [employer] Address 75 [facility] 7t [place] [address] Care Team Providers Care Shed Workers Supervisor Name Role Phone Joyce Tapia MD Primary Care Provider [phone] Cristal Muhammad PharmD Unavailable [phone] Jenny Schmidt MD Primary Care Provider [phone] Reason for Visit * Reason Onset Date Comments Med Refill 05/30/2023 Encounter Details Date Type Department Care Team ([facility] st Contact Info) Description 05/30/2023 Telephone [facility] MEDICINE 230 [place] [address] Joyce Tapia MD [address] [place], [place] [phone] Med Refill Social History Tobacco Use Types [...] oxyCODONE (Roxicodone) 5 MG immediate release tablet [facility] - [place], [place] - [address] [facility] documented in this encounter Plan of Treatment Upcoming Encounters Date Type Department Care Team ([facility] st Contact Info) Description 05/06/2025 10:00 AM EST Telemedicine [facility] MED & PEDS 505 [place] [address] Cristal Muhammad, Deonte 230 [place] [address] 06/04/2025 11:00 AM EST Clinical Support [facility] MED & PEDS 505 [place] [address] Katherine Casper, MAKEDA 505 [place] [address] 08/26/2025 9:00 AM EST Office Visit [facility] OPTOMETRY [address] [place] [address] Dana Fields, OD 230 [place] [address] documented as of this encounter Visit Diagnoses Not on filedocumented in this encounter Care Teams Shed Workers Supervisor Relationship Specialty Start Date End Date Joyce Tapia MD 230 [place] [address] PCP - General Family Medicine 06/19/12 05/01/25 Jenny Schmidt MD 505 [place] [address] PCP - General Family Medicine 05/02/25 Cristal Muhammad PharmD [address] [place] [address] Pharmacist Pharmacy 08/07/24 documented as of this encounter
--- OUTSIDE RECORDS SUMMARY | 2025-05-04 09:56 | XMS_ITS | Encounter Summary ---
Author Organization [employer] Address 75 [facility] 7t [place] [address] Care Team Providers Care Head Boys Tennis Coach Name Role Phone Joyce Tapia MD Primary Care Provider [phone] Cristal Muhammad PharmD Unavailable [phone] Jenny Schmidt MD Primary Care Provider [phone] Reason for Visit * Reason Onset Date Comments Med Refill 12/02/2024 Encounter Details Date Type Department Care Team (Late st Contact Info) Description 12/02/2024 Refill [facility] MEDICINE 230 [place] [address] Joyce Tapia MD [address] [place], [place] [phone] Status post surgical removal of nail matrix [...] 05/06/2025 10:00 AM EST Telemedicine [facility] MED & PEDS 505 [place] [address] Cristal Muhammad, PharmD 230 [place] [address] 06/04/2025 11:00 AM EST Clinical Support [facility] MED & PEDS 505 [place] [address] Katherine Casper, RN 505 [place] [address] 08/26/2025 9:00 AM EST Office Visit [facility] OPTOMETRY [address] [place] [address] Dana Fields, OD 230 [place] [address] documented as of this encounter Visit Diagnoses Diagnosis Status post surgical removal of nail matrix of toe of left foot documented in this encounter Additional Health Concerns Assessment Noted Time PHQ-9 Depression Total Score: 7 09/15/19 25 9:02 AM EDT documented as of this encounter Care Teams Head Boys Tennis Coach Relationship Specialty Start Date End Date Joyce Tapia MD 230 [place] [address] PCP - General Family Medicine 06/19/12 05/01/25 Jenny Schmidt MD [address] [place] [address] PCP - General Family Medicine 05/02/25 Cristal Muhammad PharmD 230 [place] [address] Pharmacist Pharmacy 08/07/24 documented as of this encounter
--- OUTSIDE RECORDS SUMMARY | 2025-05-04 09:56 | XMS_ITS | Encounter Summary ---
Author Organization [employer] Address 75 [facility] 7t [place] [address] Care Team Providers Care Librarian Assistant Name Role Phone Joyce Tapia MD Primary Care Provider [phone] Cristal Muhammad PharmD Unavailable [phone] Jenny Schmidt MD Primary Care Provider [phone] Reason for Visit * Reason Comments Med Refill Encounter Details Date Type Department Care Team (Late Contact Info) Description 06/12/2023 Refill [facility] MED & PEDS 505 [place], [place] [phone] Christy Ray MD 505 [place], [place] [phone] Muscle spasm Social History Tobacco Use Types [...] [facility] MED & [facility]ED[facility] [address] [place], [place] [phone] Cristal Muhammad, PharmD 230 [place] [address] 06/04/2025 11:00 AM EST Clinical Support [facility] CHC MED & PEDS 505 [place] [address] Katherine Casper, MAKEDA 505 [place], [place] 08/26/2025 9:00 AM EST Office Visit [facility] OPTOMETRY [address] [place] [address] Dana Fields, OD 230 [place] [address] documented as of this encounter Visit Diagnoses Diagnosis Muscle spasm Spasm of muscle documented in this encounter Care Teams Librarian Assistant Relationship Specialty Start Date End Date Joyce Tapia MD 230 [place] [address] PCP - General Family Medicine 06/19/12 05/01/25 Jenny Schmidt MD 505 [place] [address] PCP - General Family Medicine 05/02/25 Cristal Muhammad PharmD 230 [place] [address] Pharmacist Pharmacy 08/07/24 documented as of this encounter
--- OUTSIDE RECORDS SUMMARY | 2025-05-04 09:56 | XMS_ITS | Encounter Summary ---
Author Organization [employer] Address 75 [facility] 7t [place] [address] Care Team Providers Care Pattern Chart Writer Name Role Phone Joyce Tapia MD Primary Care Provider [phone] Cristal Muhammad PharmD Unavailable [phone] Jenny Schmidt MD Primary Care Provider [phone] Reason for Visit * Reason Onset Date Comments Med Refill 05/21/2024 Encounter Details Date Type Department Care Team ([facility] st Contact Info) Description 05/21/2024 Refill [facility] MED & PEDS [address] [place], [place] [phone] Joyce Tapia MD 505 [place] [address] Social History Tobacco Use Types Packs/Day Years [...] [facility] MED & PEDS [address] [place] [address] Cristal Muhammad, PharmD 230 [place] [address] 06/04/2025 11:00 AM EST Clinical Support [facility] MED & PEDS 505 [place] [address] Katherine Casper, RN 505 [place] [address] 08/26/2025 9:00 AM EST Office Visit [facility] OPTOMETRY [address] [place] [address] Dana Fields, OD 230 [place] [address] documented as of this encounter Visit Diagnoses Not on filedocumented in this encounter Care Teams Pattern Chart Writer Relationship Specialty Start Date End Date Joyce Tapia MD [address] [place] [address] PCP - General Family Medicine 06/19/12 05/01/25 Jenny Schmidt MD [address] [place] [address] PCP - General Family Medicine 05/02/25 Cristal Muhammad, BobD [address] [place] [address] Pharmacist Pharmacy 08/07/24 documented as of this encounter
--- OUTSIDE RECORDS SUMMARY | 2025-05-04 09:56 | XMS_ITS | Encounter Summary ---
Author Organization [employer] Address 75 [facility] 7t [place] [address] Care Team Providers Care Mop Maker Name Role Phone Joyce Tapia MD Primary Care Provider [phone] Cristal Muhammad PharmD Unavailable [phone] Jenny Schmidt MD Primary Care Provider [phone] Reason for Visit * Reason Onset Date Comments Med Refill 07/13/2024 Encounter Details Date Type Department Care Team ([facility] st Contact Info) Description 07/13/2024 Refill [facility] CH[facility] MED & PEDS 505 [place], [place] [phone] Joyce Tapia MD 505 [place], [place] [phone] Social History Tobacco Use Types Packs/Day Years [...] Description 05/06/2025 10:00 AM EST Telemedicine [facility] MED & PEDS 505 [place] [address] Cristal Muhammad, PharmD 230 [place] [address] 06/04/2025 11:00 AM EST Clinical Support [facility] MED & PEDS 505 [place] [address] Katherine Casper, RN 505 [place] [address] 08/26/2025 9:00 AM EST Office Visit [facility] OPTOMETRY [address] [place] [address] Dana Fields, OD 230 [place] [address] documented as of this encounter Visit Diagnoses Not on filedocumented in this encounter Care Teams Mop Maker Relationship Specialty Start Date End Date Joyce Tapia MD 230 [place] [address] PCP - General Family Medicine 06/19/12 05/01/25 Jenny Schmidt MD [address] [place] [address] PCP - General Family Medicine 05/02/25 Cristal Muhammad, BobD [address] [place] [address] Pharmacist Pharmacy 08/07/24 documented as of this encounter
--- OUTSIDE RECORDS SUMMARY | 2025-05-04 09:56 | XMS_ITS | Encounter Summary ---
Author Organization [employer] Address 75 [facility] 7t [place] [address] Care Team Providers Care Ditcher Operator Name Role Phone Joyce Tapia MD Primary Care Provider [phone] Cristal Muhammad PharmD Unavailable [phone] Jenny Schmidt MD Primary Care Provider [phone] Reason for Visit * Reason Comments Med Refill Encounter Details Date Type Department Care Team (Late st Contact Info) Description 06/06/2023 Refill [facility] MED & PEDS 505 [place] [address] Ev Lewis, ANP 230 [place], [place] [phone] Status post surgical removal of nail matrix [...] [facility] MED & PEDS 505 [place] [address] Cristal Muhammad, PharmD 230 [place] [address] 06/04/2025 11:00 AM EST Clinical Support [facility] CHC MED & PEDS 505 [place] [address] Katherine Casper, RN 505 [place], [place] 08/26/2025 9:00 AM EST Office Visit [facility] OPTOMETRY [address] [place] [address] Dana Fields, OD 230 [place] [address] documented as of this encounter Visit Diagnoses Diagnosis Status post surgical removal of nail matrix of toe of left foot documented in this encounter Care Teams Ditcher Operator Relationship Specialty Start Date End Date Joyce Tapia MD 230 [place] [address] PCP - General Family Medicine 06/19/12 05/01/25 Jenny Schmidt MD 505 [place], [place] [phone] PCP - General Family Medicine 05/02/25 Cristal Muhammad PharmD 230 [place] [address] Pharmacist Pharmacy 08/07/24 documented as of this encounter
--- OUTSIDE RECORDS SUMMARY | 2025-05-04 09:56 | XMS_ITS | Encounter Summary ---
Author Organization [employer] Address 75 [facility] 7t [place] [address] Care Team Providers Care Landmen Name Role Phone Joyce Tapia MD Primary Care Provider [phone] Cristal Muhammad PharmD Unavailable [phone] Jenny Schmidt MD Primary Care Provider [phone] Reason for Visit * Reason Onset Date Comments Med Refill 06/25/2024 Encounter Details Date Type Department Care Team (Late st Contact Info) Description 06/25/2024 Refill [facility] MEDICINE 230 [place] [address] Joyce Tapia MD [address] [place], [place] [phone] Status post surgical removal of nail matrix [...] Upcoming Encounters Date Type Department Care Team ([facility] st Contact Info) Description 05/06/2025 10:00 AM EST Telemedicine [facility] MED & PEDS 505 [place] [address] Cristal Muhammad, PharmD 230 [place] [address] 06/04/2025 11:00 AM EST Clinical Support [facility] MED & PEDS 505 [place] [address] Katherine Casper, RN 505 [place] [address] 08/26/2025 9:00 AM EST Office Visit [facility] OPTOMETRY [address] [place] [address] Dana Fields, OD 230 [place] [address] documented as of this encounter Visit Diagnoses Diagnosis Status post surgical removal of nail matrix of toe of left foot documented in this encounter Care Teams Landmen Relationship Specialty Start Date End Date Joyce Tapia MD [address] [place] [address] PCP - General Family Medicine 06/19/12 05/01/25 Jenny Schmidt MD 505 [place] [address] PCP - General Family Medicine 05/02/25 Cristal Muhammad PharmD 230 [place] [address] Pharmacist Pharmacy 08/07/24 documented as of this encounter
--- OUTSIDE RECORDS SUMMARY | 2025-05-04 09:56 | XMS_ITS | Encounter Summary ---
Author Organization [employer] Address 75 [facility] 7t [place] [address] Care Team Providers Care Cooker Meal Name Role Phone Joyce Tapia MD Primary Care Provider [phone] Cristal Muhammad PharmD Unavailable [phone] Jenny Schmidt MD Primary Care Provider [phone] Reason for Visit * Reason Comments Med Refill Encounter Details Date Type Department Care Team ([facility] Contact Info) Description 03/27/2025 Refill [facility] CHC MED & PEDS [address] [place], [place] [phone] Joyce Tapia MD 505 [place], [place] [phone] Pain Social History Tobacco Use Types Packs/Day [...] Info) Description 05/06/2025 10:00 AM EST Telemedicine [facility] MED & PEDS [address] [place] [address] Cristal Muhammad, BobD 230 [place] [address] 06/04/2025 11:00 AM EST Clinical Support [facility] MED & PEDS [address] [place] [address] Katherine Casper, MAKEDA 505 [place] [address] 08/26/2025 9:00 AM EST Office Visit [facility] OPTOMETRY [address] [place] [address] Dana Fields, CASEY 230 [place] [address] documented as of this encounter Visit Diagnoses Diagnosis Pain Generalized pain documented in this encounter Additional Health Concerns Assessment Noted Time PHQ-9 Depression Total Score: 7 09/15/19 25 9:02 AM EDT documented as of this encounter Care Teams Cooker Meal Relationship Specialty Start Date End Date Joyce Tapia MD 230 [place] [address] PCP - General Family Medicine 06/19/12 05/01/25 Jenny Schmidt MD [address] [place] [address] PCP - General Family Medicine 05/02/25 Cristal Muhammad PharmD 230 [place] [address] Pharmacist Pharmacy 08/07/24 documented as of this encounter
--- OUTSIDE RECORDS SUMMARY | 2025-05-04 09:56 | XMS_ITS | Encounter Summary ---
Author Organization [employer] Address 75 [facility] 7t [place] [address] Care Team Providers Care Wrapping Clerk Name Role Phone Joyce Tapia MD Primary Care Provider [phone] Cristal Muhammad PharmD Unavailable [phone] Jenny Schmidt MD Primary Care Provider [phone] Reason for Visit * Reason Onset Date Comments Med Refill 05/28/2024 Encounter Details Date Type Department Care Team ([facility] st Contact Info) Description 05/28/2024 Refill [facility] CHC MED & PEDS 505 [place], [place] [phone] Joyce Tapia MD 505 [place] [address] Status post surgical removal of nail matrix [...] Upcoming Encounters Date Type Department Care Team ([facility] st Contact Info) Description 05/06/2025 10:00 AM EST Telemedicine [facility] MED & PEDS 505 [place] [address] Cristal Muhammad, PharmD 230 [place] [address] 06/04/2025 11:00 AM EST Clinical Support [facility] MED & PEDS 505 [place] [address] Katherine Casper, RN 505 [place] [address] 08/26/2025 9:00 AM EST Office Visit [facility] OPTOMETRY 267 [place] [address] Dana Fields, OD 230 [place] [address] documented as of this encounter Visit Diagnoses Diagnosis Status post surgical removal of nail matrix of toe of left foot documented in this encounter Care Teams Wrapping Clerk Relationship Specialty Start Date End Date Joyce Tapia MD 230 [place] [address] PCP - General Family Medicine 06/19/12 05/01/25 Jenny Schmidt MD 505 [place] [address] PCP - General Family Medicine 05/02/25 Cristal Muhammad PharmD 230 [place] [address] Pharmacist Pharmacy 08/07/24 documented as of this encounter
--- OUTSIDE RECORDS SUMMARY | 2025-05-04 09:56 | XMS_ITS | Encounter Summary ---
Author Organization [employer] Address 75 [facility] 7t [place] [address] Care Team Providers Care Bias Cutter Name Role Phone Joyce Tapia MD Primary Care Provider Cristal Muhammad PharmD Unavailable [phone] Jenny Schmidt MD Primary Care Provider [phone] Reason for Visit * Reason Comments Med Refill Encounter Details Date Type Department Care Team ([facility] st Contact Info) Description 10/25/2022 Refill [facility] CHC MED & PEDS 505 [place], [place] [phone] Jenny Schmidt MD 505 [place], [place] [phone] Status post surgical removal of nail matrix [...] [facility] 505 [place] [address] Cristal Muhammad PharmD 230 [place] [address] 06/04/2025 11:00 AM EST Clinical Support [facility] MED & PEDS 505 [place] [address] Katherine Casper, MAKEDA 505 [place] [address] 08/26/2025 9:00 AM EST Office Visit [facility] OPTOMETRY [address] [place] [address] DonnieDana dong, OD 230 [place] [address] documented as of this encounter Visit Diagnoses Diagnosis Status post surgical removal of nail matrix of toe of left foot documented in this encounter Care Teams Bias Cutter Relationship Specialty Start Date End Date Joyce Tapia MD 230 [place] [address] PCP - General Family Medicine 06/19/12 05/01/25 Jenny Schmidt MD [address] [place] [address] PCP - General Family Medicine 05/02/25 Cristal Muhammad, Deonte 230 [place] [address] Pharmacist Pharmacy 08/07/24 documented as of this encounter
--- OUTSIDE RECORDS SUMMARY | 2025-05-04 09:56 | XMS_ITS | Encounter Summary ---
Author Organization [employer] Address 75 [facility] 7t [place] [address] Care Team Providers Care Connie Scratcher Name Role Phone Joyce Tapia MD Primary Care Provider [phone] Cristal Muhammad PharmD Unavailable [phone] Jenny Schmidt MD Primary Care Provider [phone] Encounter Details Date Type Department Care Team (Late st Contact Info) Description 05/24/2023 Abstract [facility] MEDICINE 230 [place] [address] Zohra Benavidez Social History Tobacco Use Types [...] [facility] MED & PEDS 505 [place] [address] Cristal Muhammad, PharmD [address] [place] [address] 06/04/2025 11:00 AM EST Clinical Support [facility] MED & PEDS 505 [place] [address] Katherine Casper, RN 505 [place] [address] 08/26/2025 9:00 AM EST Office Visit [facility] OPTOMETRY [address] [place] [address] Daan Fields, OD 230 [place] [address] documented as of this encounter Procedures Procedure Name Priority Date/Time Associated Diagnosis Comments COLONOSCOPY Routine 02/20/2015 documented in this encounter Results * Colonoscopy (02/20/2015) Colonoscopy Normal Normal Narrative Zohra Benavidez - 02/20/2015 Repeat in 10 year Historical Provider HEALTH MAINTENANCE Final Result documented in this encounter Visit Diagnoses Not on filedocumented in this encounter Care Teams Connie Scratcher Relationship Specialty Start Date End Date Joyce Tapia MD [address] [place] [address] PCP - General Family Medicine 06/19/12 05/01/25 Jenny Schmidt MD 505 [place] [address] PCP - General Family Medicine 05/02/25 Critsal Muhammad PharmD [address] [place] [address] Pharmacist Pharmacy 08/07/24 documented as of this encounter
--- OUTSIDE RECORDS SUMMARY | 2025-05-04 09:56 | XMS_ITS | Encounter Summary ---
Author Organization [employer] Address 75 [facility] 7t [place] [address] Care Team Providers Care Engineering Associate Name Role Phone Joyce Tapia MD Primary Care Provider [phone] Cristal Muhammad PharmD Unavailable [phone] Jenny Schmidt MD Primary Care Provider [phone] Reason for Visit * Reason Onset Date Comments Med Refill 02/25/2025 Encounter Details Date Type Department Care Team ([facility] st Contact Info) Description 02/25/2025 Refill [facility] CH[facility] MED & PEDS [address] [place], [place] [phone] Ayden Orellana MD 505 [place], [place] [phone] Status post surgical removal of nail matrix [...] 05/06/2025 10:00 AM EST Telemedicine [facility] MED & PEDS 505 [place] [address] Cristal Muhammad, Deonte 230 [place] [address] 06/04/2025 11:00 AM EST Clinical Support [facility] MED & PEDS [address] [place] [address] Katherine Casper, MAKEDA 505 [place] [address] 08/26/2025 9:00 AM EST Office Visit [facility] OPTOMETRY [address] [place] [address] Dana Fields, OD 230 [place] [address] documented as of this encounter Visit Diagnoses Diagnosis Status post surgical removal of nail matrix of toe of left foot documented in this encounter Additional Health Concerns Assessment Noted Time PHQ-9 Depression Total Score: 7 09/15/19 25 9:02 AM EDT documented as of this encounter Care Teams Engineering Associate Relationship Specialty Start Date End Date Joyce Tapia MD 230 [place] [address] PCP - General Family Medicine 06/19/12 05/01/25 Jenny Schmidt MD [address] [place] [address] PCP - General Family Medicine 05/02/25 Cristal Muhammad PharmD 230 [place] [address] Pharmacist Pharmacy 08/07/24 documented as of this encounter
--- OUTSIDE RECORDS SUMMARY | 2025-05-04 09:56 | XMS_ITS | Encounter Summary ---
Author Organization [employer] Address 75 [facility] 7t [place] [address] Care Team Providers Care Electrical Power Engineer Name Role Phone Joyce Tapia MD Primary Care Provider [phone] Cristal Muhammad PharmD Unavailable [phone] Jenny Schmidt MD Primary Care Provider [phone] Reason for Visit * Reason Comments Med Refill Encounter Details Date Type Department Care Team (Late Contact Info) Description 07/29/2023 Refill [facility] MEDICINE 230 [place] [address] Joyce Tapia MD 505 [place], [place] [phone] Status post surgical removal of nail matrix [...] Info) Description 05/06/2025 10:00 AM EST Telemedicine [facility] CHC MED & PEDS 505 [place], [place] [phone] Cristal Muhammad, PharmD 230 [place] [address] 06/04/2025 11:00 AM EST Clinical Support [facility] CHC MED & PEDS 505 [place] [address] Katherine Casper, RN 505 [place], [place] 08/26/2025 9:00 AM EST Office Visit [facility] OPTOMETRY [address] [place] [address] Dana Fields, OD 230 [place] [address] documented as of this encounter Visit Diagnoses Diagnosis Status post surgical removal of nail matrix of toe of left foot documented in this encounter Care Teams Electrical Power Engineer Relationship Specialty Start Date End Date Joyce Tapia MD 230 [place] [address] PCP - General Family Medicine 06/19/12 05/01/25 Jenny Schmidt MD 505 [place], [place] [phone] PCP - General Family Medicine 05/02/25 Cristal Muhammad PharmD 230 [place] [address] Pharmacist Pharmacy 08/07/24 documented as of this encounter
--- OUTSIDE RECORDS SUMMARY | 2025-05-04 09:56 | XMS_ITS | Encounter Summary ---
Author Organization [employer] Address 75 [facility] 7t [place] [address] Care Team Providers Care Farm Manager Name Role Phone Joyce Tapia MD Primary Care Provider [phone] Cristal Muhammad PharmD Unavailable [phone] Jenny Schmidt MD Primary Care Provider [phone] Reason for Visit * Reason Onset Date Comments Med Refill 03/24/2025 Encounter Details Date Type Department Care Team ([facility] st Contact Info) Description 03/24/2025 Refill [facility] CHC MED & PEDS 505 [place], [place] [phone] Ayden Orellana MD 505 [place] [address] Wheezing Social History Tobacco Use Types Packs/Day [...] Description 05/06/2025 10:00 AM EST Telemedicine [facility] MED & PEDS 505 [place] [address] Cristal Muhammad, PharmD 230 [place] [address] 06/04/2025 11:00 AM EST Clinical Support [facility] MED & PEDS 505 [place] [address] Katherine Casper, RN 505 [place] [address] 08/26/2025 9:00 AM EST Office Visit [facility] OPTOMETRY [address] [place] [address] Dana Fields, OD 230 [place] [address] documented as of this encounter Visit Diagnoses Diagnosis Wheezing documented in this encounter Additional Health Concerns Assessment Noted Time PHQ-9 Depression Total Score: 7 09/15/19 25 9:02 AM EDT documented as of this encounter Care Teams Farm Manager Relationship Specialty Start Date End Date Joyce Tapia MD 230 [place] [address] PCP - General Family Medicine 06/19/12 05/01/25 Jenny Schmidt MD 505 [place] [address] PCP - General Family Medicine 05/02/25 Cristal Muhammad PharmD 230 [place] [address] Pharmacist Pharmacy 08/07/24 documented as of this encounter
--- OUTSIDE RECORDS SUMMARY | 2025-05-04 09:56 | XMS_ITS | Encounter Summary ---
Author Organization [employer] Address 75 [facility] 7t [place] [address] Care Team Providers Care Accuracy Expert Name Role Phone Joyce Tapia MD Primary Care Provider [phone] Cristal Muhammad PharmD Unavailable [phone] Jenny Schmidt MD Primary Care Provider [phone] Encounter Details Date Type Department Care Team ([facility] Contact Info) Description 09/27/2022 Orders Only [facility] MEDICINE [address] [place], [place] [phone] [place] Estrada LPN Social History Tobacco Use [...] Upcoming Encounters Date Type Department Care Team ([facility] Contact Info) Description 05/06/2025 10:00 AM EST Telemedicine [facility] CHC MED & PEDS 505 [place] [address] MuhammadCristal PharmD 230 [place] [address] 06/04/2025 11:00 AM EST Clinical Support [facility] CHC MED & PEDS 505 [place] [address] Katherine Casper, RN 505 [place] [address] 08/26/2025 9:00 AM EST Office Visit [facility] OPTOMETRY [address] [place] [address] Dana Fields, OD 230 [place] [address] documented as of this encounter Visit Diagnoses Not on filedocumented in this encounter Care Teams Accuracy Expert Relationship Specialty Start Date End Date Joyce Tapia MD 230 [place] [address] PCP - General Family Medicine 06/19/12 05/01/25 Jenny Schmidt MD 505 [place], [place] [phone] PCP - General Family Medicine 05/02/25 Cristal Muhammad PharmD 230 [place] [address] Pharmacist Pharmacy 08/07/24 documented as of this encounter
--- OUTSIDE RECORDS SUMMARY | 2025-05-04 09:56 | XMS_ITS | Encounter Summary ---
Author Organization [employer] Address 75 [facility] 7t [place] [address] Care Team Providers Care Supervisor Elementary Education Name Role Phone Joyce Tapia MD Primary Care Provider [phone] Cristal Muhammad PharmD Unavailable [phone] Jenny Schmidt MD Primary Care Provider [phone] Reason for Visit * Reason Onset Date Comments Med Refill 09/17/2024 Encounter Details Date Type Department Care Team ([facility] st Contact Info) Description 09/17/2024 Refill [facility] CH[facility] MED & PEDS 505 [place], [place] [phone] Emerson Keith MD 505 [place], [place] [phone] Status post surgical removal of nail matrix [...] Info) Description 05/06/2025 10:00 AM EST Telemedicine [facility] MED & PEDS 505 [place] [address] Cristal Muhammad, Deonte 230 [place] [address] 06/04/2025 11:00 AM EST Clinical Support [facility] MED & PEDS 505 [place] [address] Katherine Casper, MAKEDA 505 [place] [address] 08/26/2025 9:00 AM EST Office Visit [facility] OPTOMETRY [address] [place] [address] Dana Fields, OD 230 [place] [address] documented as of this encounter Visit Diagnoses Diagnosis Status post surgical removal of nail matrix of toe of left foot documented in this encounter Additional Health Concerns Assessment Noted Time PHQ-9 Depression Total Score: 7 09/15/19 25 9:02 AM EDT documented as of this encounter Care Teams Supervisor Elementary Education Relationship Specialty Start Date End Date Joyce Tapia MD 230 [place] [address] PCP - General Family Medicine 06/19/12 05/01/25 Jenny Schmidt MD [address] [place] [address] PCP - General Family Medicine 05/02/25 Cristal Muhammad PharmD 230 [place] [address] Pharmacist Pharmacy 08/07/24 documented as of this encounter
--- OUTSIDE RECORDS SUMMARY | 2025-05-04 09:56 | XMS_ITS | Encounter Summary ---
Author Organization [employer] Address 75 [facility] [address]t [place] [address] Care Team Providers Care Stripping Machine Operator Name Role Phone Joyce Tapia MD Primary Care Provider [phone] Cristal Muhammad PharmD Unavailable [phone] Jenny Schmidt MD Primary Care Provider [phone] Reason for Visit * Reason Comments Med Refill Encounter Details Date Type Department Care Team ([facility] st Contact Info) Description 12/17/[address] [facility] 230 [place] [address] Kassi Johnston FNP [address] [place], [place] [phone] Social History Tobacco Use Types Packs/Day Years [...] [facility] 505 [place] [address] Cristal Muhammad, BobD 230 [place] [address] 06/04/2025 11:00 AM EST Clinical Support [facility] 505 [place] [address] Katherine Casper, MAKEDA 505 [place] [address] 08/26/2025 9:00 AM EST Office Visit [facility] [address] [place] [address] Dana Fields OD 230 [place] [address] documented as of this encounter Visit Diagnoses Not on filedocumented in this encounter Additional Health Concerns Assessment Noted Time PHQ-9 Depression Total Score: 7 09/15/19 25 9:02 AM EDT documented as of this encounter Care Teams Stripping Machine Operator Relationship Specialty Start Date End Date Joyce Tapia MD 230 [place] [address] PCP - General Family Medicine 06/19/12 05/01/25 Jenny Schmidt MD 505 [place] [address] PCP - General Family Medicine 05/02/25 Cristal Muhammad PharmD 230 [place] [address] Pharmacist Pharmacy 08/07/24 documented as of this encounter
--- OUTSIDE RECORDS SUMMARY | 2025-05-04 09:56 | XMS_ITS | Encounter Summary ---
Author Organization [employer] Address 75 [facility] 7t [place] [address] Care Team Providers Care Senior Manager Creative Services Name Role Phone Joyce Tapia MD Primary Care Provider [phone] Cristal Muhammad PharmD Unavailable Jenny Scmhidt MD Primary Care Provider Reason for Visit * Reason Onset Date Comments Medication Question 12/11/2024 Encounter Details Date Type Department Care Team ([facility] st Contact Info) Description 12/11/2024 Telephone [facility] 230 [place], [place] [phone] Joyce Tapia MD [address] [place], [place] [phone] Medication Question Social History Tobacco Use Types [...] have dosage increased. Please contact pt at [phone]. documented in this encounter Plan of Treatment Upcoming Encounters Date Type Department Care Team ([facility] st Contact Info) Description 05/06/2025 10:00 AM EST Telemedicine [facility] 505 [place] [address] Cristal Muhammad, BobD 230 [place] [address] 06/04/2025 11:00 AM EST Clinical Support [facility] 505 [place] [address] Katherine Casper, RN 505 [place] [address] 08/26/2025 9:00 AM EST Office Visit [facility] [address] [place] [address] Dana Fields, OD 230 [place] [address] documented as of this encounter Visit Diagnoses Not on filedocumented in this encounter Additional Health Concerns Assessment Noted Time PHQ-9 Depression Total Score: 7 09/15/19 9:02 AM EDT documented as of this encounter Care Teams Senior Manager Creative Services Relationship Specialty Start Date End Date Joyce Tapia MD 230 [place] [address] PCP - General Family Medicine 06/19/12 05/01/25 Jenny Schmidt MD 505 [place] [address] PCP - General Family Medicine 05/02/25 Cristal Muhammad PharmD 230 [place] [address] Pharmacist Pharmacy 08/07/24 documented as of this encounter
--- OUTSIDE RECORDS SUMMARY | 2025-05-04 09:56 | XMS_ITS | Encounter Summary ---
Author Organization [employer] Address 75 [facility] 7t [place] [address] Care Team Providers Care Cam Maker Name Role Phone Joyce Tapia MD Primary Care Provider [phone] Cristal Muhammad PharmD Unavailable [phone] Jenny Schmidt MD Primary Care Provider [phone] Reason for Visit * Reason Onset Date Comments Med Refill 06/28/2023 Encounter Details Date Type Department Care Team ([facility] st Contact Info) Description 06/28/2023 Telephone [facility] 230 [place] [address] Joyce Tapia MD [address] [place], [place] [phone] Med Refill Social History Tobacco Use Types [...] sent to: [facility] - [place], [place] - [address] [facility] documented in this encounter Plan of Treatment Upcoming Encounters Date Type Department Care Team (Late st Contact Info) Description 05/06/2025 10:00 AM EST Telemedicine [facility] 505 [place] [address] Cristal Muhammad, Deonte 230 [place] [address] 06/04/2025 11:00 AM EST Clinical Support [facility] 505 [place] [address] Katherine Casper, RN 505 [place] [address] 08/26/2025 9:00 AM EST Office Visit [facility] 267 [place] [address] Dana Fields, OD 230 [place] [address] documented as of this encounter Visit Diagnoses Not on filedocumented in this encounter Care Teams Cam Maker Relationship Specialty Start Date End Date Joyce Tapia MD 230 [place] [address] PCP - General Family Medicine 06/19/12 05/01/25 Jenny Schmidt MD 505 [place] [address] PCP - General Family Medicine 05/02/25 Cristal Muhammad, Deonte 230 [place] [address] Pharmacist Pharmacy 08/07/24 documented as of this encounter
--- OUTSIDE RECORDS SUMMARY | 2025-05-04 09:56 | XMS_ITS | Encounter Summary ---
Author Organization [employer] Address 75 [facility] 7t [place] [address] Care Team Providers Care Dwarf Tree Grower Name Role Phone Joyce Tapia MD Primary Care Provider [phone] Cristal Muhammad PharmD Unavailable [phone] Jenny Schmidt MD Primary Care Provider [phone] Reason for Visit * Reason Onset Date Comments Med Refill 04/05/2024 Encounter Details Date Type Department Care Team ([facility] st Contact Info) Description 04/05/2024 Refill [facility] 505 [place], [place] [phone] Joyce Tapia MD 505 [place] [address] Status post surgical removal of nail matrix [...] Upcoming Encounters Date Type Department Care Team ([facility] st Contact Info) Description 05/06/2025 10:00 AM EST Telemedicine [facility] 505 [place] [address] Cristal Muhammad, PharmD 230 [place] [address] 06/04/2025 11:00 AM EST Clinical Support [facility] 505 [place] [address] Katherine Casper, RN 505 [place] [address] 08/26/2025 9:00 AM EST Office Visit [facility] 267 [place] [address] Dana Fields, OD 230 [place] [address] documented as of this encounter Visit Diagnoses Diagnosis Status post surgical removal of nail matrix of toe of left foot documented in this encounter Care Teams Dwarf Tree Grower Relationship Specialty Start Date End Date Joyce Tapia MD 230 [place] [address] PCP - General Family Medicine 06/19/12 05/01/25 Jenny Schmidt MD 505 [place] [address] PCP - General Family Medicine 05/02/25 Cristal Muhammad PharmD 230 [place] [address] Pharmacist Pharmacy 08/07/24 documented as of this encounter
--- OUTSIDE RECORDS SUMMARY | 2025-05-04 09:56 | XMS_ITS | Encounter Summary ---
Author Organization [employer] Address [address] [facility] [address] [place] [address] Care Team Providers Care General Maintenance Technician Name Role Phone Joyce Tapia MD Primary Care Provider [phone] Cristal Muhammad PharmD Unavailable [phone] Jenny Schmidt MD Primary Care Provider [phone] Reason for Visit * Reason Onset Date Comments Med Refill 07/13/2024 Encounter Details Date Type Department Care Team (Late st Contact Info) Description 07/13/2024 Refill [facility] 230 [place], [place] [phone] Amber Palacio MD 230 [place], [place] [phone] Smoker Social History Tobacco Use Types Packs/Day [...] Info) Description 05/06/2025 10:00 AM EST Telemedicine [facility] 505 [place] [address] Cristal Muhammad PharmD 230 [place] [address] 06/04/2025 11:00 AM EST Clinical Support [facility] 505 [place] [address] Katherine Casper, RN 505 [place] [address] 08/26/2025 9:00 AM EST Office Visit [facility] [address] [place] [address] Dana Fields, OD 230 [place] [address] documented as of this encounter Visit Diagnoses Diagnosis Smoker Tobacco use disorder documented in this encounter Care Teams General Maintenance Technician Relationship Specialty Start Date End Date Joyce Tapia MD 230 [place] [address] PCP - General Family Medicine 06/19/12 05/01/25 Jenny Schmidt MD 505 [place] [address] PCP - General Family Medicine 05/02/25 Cristal Muhammad PharmD 230 [place] [address] Pharmacist Pharmacy 08/07/24 documented as of this encounter
--- OUTSIDE RECORDS SUMMARY | 2025-05-04 09:56 | XMS_ITS | Encounter Summary ---
Author Organization [employer] Address 75 [facility] 7t [place] [address] Care Team Providers Care Beamster Name Role Phone Joyce Tapia MD Primary Care Provider [phone] Cristal Muhammad PharmD Unavailable [phone] Jenny Schmidt MD Primary Care Provider [phone] Reason for Visit * Reason Onset Date Comments Med Refill 12/03/2024 Encounter Details Date Type Department Care Team ([facility] st Contact Info) Description 12/03/2024 Telephone [facility] 230 [place], [place] [phone] Joyce Tapia MD [address] [place], [place] [phone] Med Refill Social History Tobacco Use Types [...] [facility] 505 [place] [address] Cristal Muhammad, PharmD 230 [place] [address] 06/04/2025 11:00 AM EST Clinical Support [facility] 505 [place] [address] Katherine Casper, RN 505 [place] [address] 08/26/2025 9:00 AM EST Office Visit [facility] [address] [place] [address] Dana Fields, OD 230 [place] [address] documented as of this encounter Visit Diagnoses Not on filedocumented in this encounter Additional Health Concerns Assessment Noted Time PHQ-9 Depression Total Score: 7 09/15/19 9:02 AM EDT documented as of this encounter Care Teams Beamster Relationship Specialty Start Date End Date Joyce Tapia MD 230 [place] [address] PCP - General Family Medicine 06/19/12 05/01/25 Jenny Schmidt MD 505 [place] [address] PCP - General Family Medicine 05/02/25 Cristal Muhammad PharmD 230 [place] [address] Pharmacist Pharmacy 08/07/24 documented as of this encounter
--- OUTSIDE RECORDS SUMMARY | 2025-05-04 09:56 | XMS_ITS | Encounter Summary ---
Author Organization [employer] Address 75 [facility] 7t [place] [address] Care Team Providers Care Ethylene Plant Operator Name Role Phone Joyce Tapia MD Primary Care Provider [phone] Cristal Muhammad PharmD Unavailable Jenny Schmidt MD Primary Care Provider [phone] Reason for Visit * Reason Onset Date Comments Med Refill 07/27/2024 Encounter Details Date Type Department Care Team (Late st Contact Info) Description 07/27/2024 Refill [facility] 230 [place] [address] Emerson Keith MD 505 [place] [address] Status post surgical removal of nail matrix [...] Upcoming Encounters Date Type Department Care Team ([facility] st Contact Info) Description 05/06/2025 10:00 AM EST Telemedicine [facility] 505 [place] [address] Cristal Muhammad, PharmD 230 [place] [address] 06/04/2025 11:00 AM EST Clinical Support [facility] 505 [place] [address] Katherine Casper, RN 505 [place] [address] 08/26/2025 9:00 AM EST Office Visit [facility] [address] [place] [address] Dana Fields, OD 230 [place] [address] documented as of this encounter Visit Diagnoses Diagnosis Status post surgical removal of nail matrix of toe of left foot documented in this encounter Care Teams Ethylene Plant Operator Relationship Specialty Start Date End Date Joyce Tapia MD 230 [place] [address] PCP - General Family Medicine 06/19/12 05/01/25 Jenny Schmidt MD 505 [place] [address] PCP - General Family Medicine 05/02/25 Cristal Muhammad PharmD 230 [place] [address] Pharmacist Pharmacy 08/07/24 documented as of this encounter
--- OUTSIDE RECORDS SUMMARY | 2025-05-04 09:56 | XMS_ITS | Encounter Summary ---
Author Organization [employer] Address 75 [facility] 7t [place] [address] Care Team Providers Care Survey Cad Technician Name Role Phone Joyce Tapia MD Primary Care Provider [phone] Cristal Muhammad PharmD Unavailable [phone] Jenny Schmidt MD Primary Care Provider [phone] Reason for Visit * Reason Onset Date Comments Med Refill 10/25/2024 Encounter Details Date Type Department Care Team ([facility] st Contact Info) Description 10/25/2024 Refill [facility] 505 [place], [place] [phone] Joyce Tapia MD 505 [place] [address] Social History Tobacco Use Types Packs/Day Years [...] Info) Description 05/06/2025 10:00 AM EST Telemedicine [facility] 505 [place] [address] Cristal Muhammad, PharmD 230 [place] [address] 06/04/2025 11:00 AM EST Clinical Support [facility] 505 [place] [address] Katherine Casper, RN 505 [place] [address] 08/26/2025 9:00 AM EST Office Visit [facility] [address] [place] [address] Dana Fields, OD 230 [place] [address] documented as of this encounter Visit Diagnoses Not on filedocumented in this encounter Additional Health Concerns Assessment Noted Time PHQ-9 Depression Total Score: 7 09/15/19 25 9:02 AM EDT documented as of this encounter Care Teams Survey Cad Technician Relationship Specialty Start Date End Date Joyce Tapia MD 230 [place] [address] PCP - General Family Medicine 06/19/12 05/01/25 Jenny Schmidt MD [address] [place] [address] PCP - General Family Medicine 05/02/25 Cristal Muhammad PharmD 230 [place] [address] Pharmacist Pharmacy 08/07/24 documented as of this encounter
--- OUTSIDE RECORDS SUMMARY | 2025-05-04 09:56 | XMS_ITS | Encounter Summary ---
Author Organization [employer] Address 75 [facility] 7t [place] [address] Care Team Providers Care Patrol Officer Name Role Phone Joyce Tapia MD Primary Care Provider [phone] Cristal Muhammad PharmD Unavailable Jenny Schmidt MD Primary Care Provider [phone] Reason for Visit * Reason Onset Date Comments Med Refill 09/26/2024 Encounter Details Date Type Department Care Team (Late st Contact Info) Description 09/26/2024 Refill [facility] 505 [place], [place] [phone] Joyce Tapia MD 505 [place] [address] Status post surgical removal of nail matrix [...] is your housing situation today? I have yaidra han 01/04/[address] you [...] [facility] 505 [place] [address] Cristal Muhammad, PharmD 230 [place] [address] 06/04/2025 11:00 AM EST Clinical Support [facility] 505 [place] [address] Katherine Casper, MAKEDA 505 [place] [address] 08/26/2025 9:00 AM EST Office Visit [facility] 267 [place] [address] Dana Fields, OD 230 [place] [address] documented as of this encounter Visit Diagnoses Diagnosis Status post surgical removal of nail matrix of toe of left foot documented in this encounter Additional Health Concerns Assessment Noted Time PHQ-9 Depression Total Score: 7 09/15/19 25 9:02 AM EDT documented as of this encounter Care Teams Patrol Officer Relationship Specialty Start Date End Date Joyce Tapia MD 230 [place] [address] PCP - General Family Medicine 06/19/12 05/01/25 Jenny Schmidt MD [address] [place] [address] PCP - General Family Medicine 05/02/25 Cristal Muhammad PharmD 230 [place] [address] Pharmacist Pharmacy 08/07/24 documented as of this encounter
--- OUTSIDE RECORDS SUMMARY | 2025-05-04 09:56 | XMS_ITS | Encounter Summary ---
Author Organization [employer] Address 75 [facility] [address] 7t [place] [address] Care Team Providers Care Fly Worker Name Role Phone Cristal Muhammad PharmD Unavailable [phone] Jenny Schmidt MD Primary Care Provider [phone] Encounter Details Date Type Department Care Team (Latest Contact Info) Description 05/03/2025 Travel Social History Tobacco Use Types Packs/Day [...] Upcoming Encounters Date Type Department Care Team ([facility] st Contact Info) Description 05/06/2025 10:00 AM EST Telemedicine [facility] 505 [place] [address] Cristal Muhammad PharmD 230 [place] [address] 06/04/2025 11:00 AM EST Clinical Support [facility] 505 [place] [address] Katherine Casper RN 505 [place] [address] 08/26/2025 9:00 AM EST Office Visit [facility] 267 [place] [address] Dana Fields, OD 230 [place] [address] documented as of this encounter Visit Diagnoses Not on filedocumented in this encounter Additional Health Concerns Assessment Noted Time PHQ-9 Depression Total Score: 7 09/15/19 25 9:02 AM EDT documented as of this encounter Care Teams Fly Worker Relationship Specialty Start Date End Date Jenny Schmidt MD 505 [place] [address] PCP - General Family Medicine 05/02/25 Cristal Muhammad, PharmD 230 [place] [address] Pharmacist Pharmacy 08/07/24 documented as of this encounter
--- OUTSIDE RECORDS SUMMARY | 2025-05-04 09:56 | XMS_ITS | Encounter Summary ---
Author Organization [employer] Address 75 [facility] 7t [place] [address] Care Team Providers Care Steamer Blocker Name Role Phone Joyce Tapia MD Primary Care Provider [phone] Cristal Muhammad PharmD Unavailable [phone] Jenny Schmidt MD Primary Care Provider [phone] Reason for Visit * Reason Onset Date Comments Med Refill 06/05/2024 Encounter Details Date Type Department Care Team (Late st Contact Info) Description 06/05/[address] [facility] 230 [place] [address] Joyce Tapia MD [address] [place], [place] [phone] Status post surgical removal of nail matrix [...] [facility] st Contact Info) Description 05/06/2025 10:00 AM EST Telemedicine [facility] 505 [place] [address] Cristal Muhammad, PharmD 230 [place] [address] 06/04/2025 11:00 AM EST Clinical Support [facility] 505 [place] [address] Katherine Casper, RN 505 [place] [address] 08/26/2025 9:00 AM EST Office Visit [facility] [address] [place] [address] Dana Fields, OD 230 [place] [address] documented as of this encounter Visit Diagnoses Diagnosis Status post surgical removal of nail matrix of toe of left foot documented in this encounter Care Teams Steamer Blocker Relationship Specialty Start Date End Date Joyce Tapia MD 230 [place] [address] PCP - General Family Medicine 06/19/12 05/01/25 Jenny Schmidt MD 505 [place] [address] PCP - General Family Medicine 05/02/25 Cristal Muhammad PharmD 230 [place] [address] Pharmacist Pharmacy 08/07/24 documented as of this encounter
--- OUTSIDE RECORDS SUMMARY | 2025-05-04 09:56 | XMS_ITS | Encounter Summary ---
Author Organization [employer] Address 75 [facility] 7t [place] [address] Care Team Providers Care Door Slinger Name Role Phone Joyce Tapia MD Primary Care Provider [phone] Cristal Muhammad PharmD Unavailable [phone] Jenny Schmidt MD Primary Care Provider [phone] Reason for Visit * Reason Onset Date Comments Med Refill 07/12/2024 Encounter Details Date Type Department Care Team (Late st Contact Info) Description 07/12/2024 Refill [facility] 505 [place], [place] [phone] Joyce Tapia MD 505 [place] [address] Status post surgical removal of nail matrix [...] Upcoming Encounters Date Type Department Care Team ([facility] st Contact Info) Description 05/06/2025 10:00 AM EST Telemedicine [facility] 505 [place] [address] Cristal Muhammad, PharmD 230 [place] [address] 06/04/2025 11:00 AM EST Clinical Support [facility] 505 [place] [address] Katherine Casper, RN 505 [place] [address] 08/26/2025 9:00 AM EST Office Visit [facility] [address] [place] [address] Dana Fields, OD 230 [place] [address] documented as of this encounter Visit Diagnoses Diagnosis Status post surgical removal of nail matrix of toe of left foot documented in this encounter Care Teams Door Slinger Relationship Specialty Start Date End Date Joyce Tapia MD 230 [place] [address] PCP - General Family Medicine 06/19/12 05/01/25 Jenny Schmidt MD 505 [place] [address] PCP - General Family Medicine 05/02/25 Cristal Muhammad PharmD 230 [place] [address] Pharmacist Pharmacy 08/07/24 documented as of this encounter
--- OUTSIDE RECORDS SUMMARY | 2025-05-04 09:56 | XMS_ITS | Encounter Summary ---
Author Organization [employer] Address 75 [facility] 7t [place] [address] Care Team Providers Care Supervisor Special Education Name Role Phone Joyce Tapia MD Primary Care Provider [phone] Cristal Muhammad PharmD Unavailable [phone] Jenny Schmidt MD Primary Care Provider [phone] Reason for Visit * Reason Comments Med Refill Encounter Details Date Type Department Care Team (Late Contact Info) Description 10/11/2023 Refill [facility] 230 [place], [place] [phone] Ayden Orellana MD 505 [place], [place] [phone] Status post surgical removal of nail matrix [...] Info) Description 05/06/2025 10:00 AM EST Telemedicine [facility] 505 [place], [place] [phone] Muhammad, Deonte Bee 230 [place] [address] 06/04/2025 11:00 AM EST Clinical Support [facility] 505 [place] [address] Katherine Casper, RN 505 [place] [address] 08/26/2025 9:00 AM EST Office Visit [facility] [address] [place] [address] Dana Fields, OD 230 [place] [address] documented as of this encounter Visit Diagnoses Diagnosis Status post surgical removal of nail matrix of toe of left foot documented in this encounter Care Teams Supervisor Special Education Relationship Specialty Start Date End Date Joyce Tapia MD 230 [place] [address] PCP - General Family Medicine 06/19/12 05/01/25 Jenny Schmidt MD 505 [place], [place] [phone] PCP - General Family Medicine 05/02/25 Cristal Muhammad PharmD 230 [place] [address] Pharmacist Pharmacy 08/07/24 documented as of this encounter
--- OUTSIDE RECORDS SUMMARY | 2025-05-04 09:56 | XMS_ITS | Encounter Summary ---
Author Organization [employer] Address 75 [facility] 7t [place] [address] Care Team Providers Care Quality Specialist Name Role Phone Joyce Tapia MD Primary Care Provider [phone] Cristal Muhammad PharmD Unavailable [phone] Jenny Schmidt MD Primary Care Provider [phone] Encounter Details Date Type Department Care Team ([facility] Contact Info) Description 10/26/2022 Orders Only [facility] CHC MED & PEDS [address] [place], [place] [phone] Emerson Keith MD 505 [place] [address] Social History Tobacco Use Types Packs/Day Years [...] Info) Description 05/06/2025 10:00 AM EST Telemedicine [facility] MED & PEDS 505 [place] [address] Cristal Muhammad PharmD 230 [place] [address] 06/04/2025 11:00 AM EST Clinical Support [facility] MED & PEDS 505 [place] [address] Katherine Casper, MAKEDA 505 [place] [address] 08/26/2025 9:00 AM EST Office Visit [facility] OPTOMETRY [address] [place] [address] Dana Fields, OD 230 [place] [address] documented as of this encounter Visit Diagnoses Not on filedocumented in this encounter Care Teams Quality Specialist Relationship Specialty Start Date End Date Joyce Tapia MD [address] [place] [address] PCP - General Family Medicine 06/19/12 05/01/25 Jenny Schmidt MD [address] [place] [address] PCP - General Family Medicine 05/02/25 Cristal Muhammad, Deonte 230 [place] [address] Pharmacist Pharmacy 08/07/24 documented as of this encounter
--- OUTSIDE RECORDS SUMMARY | 2025-05-04 09:56 | XMS_ITS | Encounter Summary ---
Author Organization [employer] Address 75 [facility] 7t [place] [address] Care Team Providers Care Barn Operator Name Role Phone Joyce Tapia MD Primary Care Provider [phone] Cristal Muhammad PharmD Unavailable [phone] Jenny Schmidt MD Primary Care Provider [phone] Reason for Visit * Reason Onset Date Comments Med Refill 08/01/2024 Encounter Details Date Type Department Care Team (Late st Contact Info) Description 08/01/2024 Refill [facility] MEDICINE 230 [place] [address] Emerson Keith MD 505 [place] [address] Status post surgical removal of nail matrix [...] Encounters Date Type Department Care Team ([facility] st Contact Info) Description 05/06/2025 10:00 AM EST Telemedicine [facility] MED & PEDS 505 [place] [address] Cristal Muhammad, PharmD 230 [place] [address] 06/04/2025 11:00 AM EST Clinical Support [facility] MED & PEDS 505 [place] [address] Katherine Casper, RN 505 [place] [address] 08/26/2025 9:00 AM EST Office Visit [facility] OPTOMETRY [address] [place] [address] Dana Fields, OD 230 [place] [address] documented as of this encounter Visit Diagnoses Diagnosis Status post surgical removal of nail matrix of toe of left foot documented in this encounter Care Teams Barn Operator Relationship Specialty Start Date End Date Joyce Tapia MD 230 [place] [address] PCP - General Family Medicine 06/19/12 05/01/25 Jenny Schmidt MD 505 [place] [address] PCP - General Family Medicine 05/02/25 Cristal Muhammad PharmD [address] [place] [address] Pharmacist Pharmacy 08/07/24 documented as of this encounter
[2025-05-04] MEDS: oxyCODONE HCl Immed Release 5 MG TABLET PO (10:01)
[2025-05-04 11:06] VITALS: BP 123/69; PULSE 83; RESP 18; TEMP 36.3; O2SAT 98
== END 2025-05-04 11:07 | disposition home or self-care (01) ==
PROVIDERS: Emergency Provider Emergency Medicine; PCP Student in an Organized Health Care Education/Training Program
DX: M25.531 Pain in right wrist (principal); Z79.899 Other long term (current) drug therapy
CPT/HCPCS: 99283; 99284

== ENCOUNTER 2025-05-18 09:39 | Outpatient (REF) | payer MEDICAID, SELFPAY ==
--- NOTE | ~2025-05-18 | MR_ITS ---
EXAMINATION: MR WRIST WITHOUT CONTRAST, RIGHT CLINICAL INFORMATION: Unspecified fracture of the lower end of the radius. Patient reports status post ganglion cyst removal 01/2025, now new cyst came back dorsally, pain, burning COMPARISON: X-ray 04/17/2025 TECHNIQUE: MRI of the wrist was performed using routine sequences on a high-field scanner. FINDINGS: BONE/JOINTS: There are cystic foci in the carpal bones, more prominent in the lunate, capitate, trapezoid, consistent with degenerative changes. Radiocarpal articulation is maintained. Mild ulnar negative variance. Carpal row articulation is maintained. No evidence of acute fracture. No aggressive marrow replacing lesion. SOFT TISSUES: Bright T2/low T1 signal focus in the dorsal soft tissues of the wrist at the level of the distal radius. Measures 7 x 7 x 6 mm. The deep surface is abutting the underlying tendons. Primary differential consideration is for a ganglion cyst. 7 mm cystic focus proximal to the pisotriquetral articulation, could reflect a synovial recess or ganglion cyst. Dorsal soft tissue subcutaneous edema. MUSCLE/TENDONS: Mild peritendinitis along the extensor carpi radialis longus and brevis tendons, extensor pollicis longus tendon. Extensor pollicis tendon has intermediate T2 signal could reflect artifactual signal versus mild tendinosis. LIGAMENTS: Scapholunate ligament degeneration without definite of tear seen. Lunotriquetral ligament is intact. TFCC appears intact. MEDIAN NERVE: Within normal limits MR/MR wrist RT wo con IMPRESSION: 1. In the dorsal soft tissues of the wrist, is a 7 x 7 x 6 mm cystic focus, likely representing a ganglion cyst. 2. Small cystic focus proximal to the pisotriquetral articulation could reflect a synovial recess or ganglion cyst. . 3. Mild extensor carpi radialis longus and brevis, extensor pollicis longus peritendinitis. Extensor pollicis longus signal changes could reflect artifactual signal versus mild tendinosis. 4. Wrist degeneration as detailed above. Electronically signed by: Daniel Hyatt MD 05/20/2025 10:04 AM TIM
--- OUTSIDE RECORDS SUMMARY | 2025-05-18 09:44 | XMS_ITS | Encounter Summary ---
Author Organization [employer] Address 75 [facility] 7t [place] [address] Care Team Providers Care Correspondence Review Clerk Name Role Phone Joyce Tapia MD Primary Care Provider [phone] Cristal Muhammad PharmD Unavailable [phone] Jenny Schmidt MD Primary Care Provider [phone] Alan Torres RN Unavailable [phone] Kaylene Luo Unavailable Reason for Visit * Reason Onset Date Comments Med Refill 09/24/2024 Encounter Details Date Type Department Care Team (Late st Contact Info) Description 09/24/2024 Refill [facility] CHC MED & PEDS 505 [place], [place] [phone] Joyce Tapia MD 505 [place], [place] [phone] Status post surgical removal of nail matrix [...] Care Team (Late st Contact Info) Description 06/04/2025 11:00 AM EST Clinical Support [facility] MED & PEDS 505 [place] [address] Katherine Casper, RN 505 [place] [address] 07/29/2025 10:00 AM EST Medication Management [facility] MED & PEDS 505 [place] [address] Cristal Muhammad, PharmD 230 [place] [address] 08/26/2025 9:00 AM EST Office Visit [facility] OPTOMETRY [address] [place] [address] Dana Fields, OD 230 [place] [address] documented as of this encounter Visit Diagnoses Diagnosis Status post surgical removal of nail matrix of toe of left foot documented in this encounter Additional Health Concerns Assessment Noted Time PHQ-9 Depression Total Score: 7 09/15/19 25 9:02 AM EDT documented as of this encounter Care Teams Correspondence Review Clerk Relationship Specialty Start Date End Date Joyce Tapia MD 230 [place] [address] PCP - General Family Medicine 06/19/12 05/01/25 Jenny Schmidt MD 505 [place] [address] PCP - General Family Medicine 05/02/25 Cristal Muhammad PharmD 230 [place] [address] Pharmacist Pharmacy 08/07/24 Alan Torres, MAKEDA 505 [place] [address] Registered Nurse Family Medicine 05/06/25 Kaylene Luo 05/06/25 documented as of this encounter
--- OUTSIDE RECORDS SUMMARY | 2025-05-18 09:45 | XMS_ITS | Encounter Summary ---
Author Organization [employer] Address 75 [facility] 7t [place] [address] Care Team Providers Care Automatic Lathe Tender Name Role Phone Joyce Tapia MD Primary Care Provider [phone] Cristal Muhammad PharmD Unavailable [phone] Jenny Schmidt MD Primary Care Provider [phone] Alan Torres RN Unavailable [phone] Kaylene Luo Unavailable Reason for Visit * Reason Onset Date Comments Med Refill 07/25/2024 Encounter Details Date Type Department Care Team (Late st Contact Info) Description 07/25/2024 Refill [facility] MEDICINE 230 [place] [address] Emerson Keith MD 505 [place], [place] [phone] Status post surgical removal of nail matrix [...] Description 06/04/2025 11:00 AM EST Clinical Support [facility] MED & PEDS 505 [place] [address] Katherine Casper, RN 505 [place] [address] 07/29/2025 10:00 AM EST Medication Management [facility] MED & PEDS 505 [place] [address] Cristal Muhammad, PharmD 230 [place] [address] 08/26/2025 9:00 AM EST Office Visit [facility] OPTOMETRY [address] [place] [address] Dana Fields, OD 230 [place] [address] documented as of this encounter Visit Diagnoses Diagnosis Status post surgical removal of nail matrix of toe of left foot documented in this encounter Care Teams Automatic Lathe Tender Relationship Specialty Start Date End Date Joyce Tapia MD 230 [place] [address] PCP - General Family Medicine 06/19/12 05/01/25 Jenny Schmidt MD 505 [place] [address] PCP - General Family Medicine 05/02/25 Cristal Muhammad PharmD 230 [place] [address] Pharmacist Pharmacy 08/07/24 Alan Torres, MAKEDA 505 [place] [address] Registered Nurse Family Medicine 05/06/25 Kaylene Luo 05/06/25 documented as of this encounter
--- OUTSIDE RECORDS SUMMARY | 2025-05-18 09:45 | XMS_ITS | Encounter Summary ---
Author Organization [employer] Address 75 [facility] 7t [place] [address] Care Team Providers Care Large Engine Assembler Name Role Phone Joyce Tapia MD Primary Care Provider [phone] Cristal Muhammad PharmD Unavailable [phone] Jenny Schmidt MD Primary Care Provider [phone] Alan Torres RN Unavailable [phone] Kaylene Luo Unavailable Reason for Visit * Reason Onset Date Comments Med Refill 07/19/2024 Encounter Details Date Type Department Care Team (Late st Contact Info) Description 07/19/2024 Refill [facility] CHC MED & PEDS 505 [place], [place] [phone] Joyce Tapia MD 505 [place], [place] [phone] Social History Tobacco Use Types Packs/Day Years [...] Description 06/04/2025 11:00 AM EST Clinical Support [facility] MED & PEDS 505 [place] [address] Katherine Casper, RN 505 [place] [address] 07/29/2025 10:00 AM EST Medication Management [facility] MED & PEDS 505 [place] [address] Cristal Muhammad, PharmD 230 [place] [address] 08/26/2025 9:00 AM EST Office Visit [facility] OPTOMETRY [address] [place] [address] Dana Fields, OD 230 [place] [address] documented as of this encounter Visit Diagnoses Not on filedocumented in this encounter Care Teams Large Engine Assembler Relationship Specialty Start Date End Date Joyce Tapia MD [address] [place] [address] PCP - General Family Medicine 06/19/12 05/01/25 Jenny Schmidt MD 505 [place] [address] PCP - General Family Medicine 05/02/25 Cristal Muhammad PharmD 230 [place] [address] Pharmacist Pharmacy 08/07/24 Alan Torres, MAKEDA 505 [place] [address] Registered Nurse Family Medicine 05/06/25 Kaylene Luo 05/06/25 documented as of this encounter
--- OUTSIDE RECORDS SUMMARY | 2025-05-18 09:46 | XMS_ITS | Encounter Summary ---
Author Organization [employer] Address 75 [facility] 7t [place] [address] Care Team Providers Care Setter Juice Packaging Machines Name Role Phone Joyce Tapia MD Primary Care Provider [phone] Cristal Muhammad PharmD Unavailable [phone] Jenny Schmidt MD Primary Care Provider [phone] Alan Torres RN Unavailable [phone] Kaylene Luo Unavailable Reason for Visit * Reason Onset Date Comments Med Refill 04/18/2024 Encounter Details Date Type Department Care Team (Late st Contact Info) Description 04/18/2024 Refill [facility] MEDICINE 230 [place], [place] [phone] Amber Paalcio MD 230 [place], [place] [phone] Smoker Social History Tobacco Use Types Packs/Day [...] Upcoming Encounters Date Type Department Care Team ([facility] st Contact Info) Description 06/04/2025 11:00 AM EST Clinical Support [facility] MED & PEDS 505 [place] [address] Katherine Casper, RN 505 [place] [address] 07/29/2025 10:00 AM EST Medication Management [facility] MED & PEDS 505 [place] [address] Cristal Muhammad, PharmD 230 [place] [address] 08/26/2025 9:00 AM EST Office Visit [facility] OPTOMETRY [address] [place] [address] Dana Fields, OD 230 [place] [address] documented as of this encounter Visit Diagnoses Diagnosis Smoker Tobacco use disorder documented in this encounter Care Teams Setter Juice Packaging Machines Relationship Specialty Start Date End Date Joyce Tapia MD 230 [place] [address] PCP - General Family Medicine 06/19/12 05/01/25 Jenny Schmidt MD 505 [place] [address] PCP - General Family Medicine 05/02/25 Cristal Muhammad PharmD 230 [place] [address] Pharmacist Pharmacy 08/07/24 Alan Torres, MAKEDA 505 [place] [address] Registered Nurse Family Medicine 05/06/25 Kaylene Luo 05/06/25 documented as of this encounter
--- OUTSIDE RECORDS SUMMARY | 2025-05-18 09:46 | XMS_ITS | Encounter Summary ---
Author Organization [employer] Address 75 [facility] 7t [place] [address] Care Team Providers Care Manager Retirement Name Role Phone Joyce Tapia MD Primary Care Provider [phone] Cristal Muhammad PharmD Unavailable [phone] Jenny Schmidt MD Primary Care Provider [phone] Alan Torres RN Unavailable [phone] Kaylene Luo Unavailable Reason for Visit * Reason Onset Date Comments Med Refill 04/11/2024 Encounter Details Date Type Department Care Team ([facility] st Contact Info) Description 04/11/2024 Telephone [facility] MED & PEDS 505 [place], [place] [phone] Joyce Tapia MD 505 [place], [place] [phone] Med Refill Social History Tobacco Use Types [...] to: [facility] [place] - 505 [facility] documented in this encounter Plan of Treatment Upcoming Encounters Date Type Department Care Team ([facility] st Contact Info) Description 06/04/2025 11:00 AM EST Clinical Support [facility] MED & PEDS 505 [facility] [place] [address] Katherine Casper RN 505 [facility] [place] [address] 07/29/2025 10:00 AM EST Medication Management [facility] MED & PEDS 505 [facility] [place] [address] Cristal Muhammad, PharmD 230 [place] [address] 08/26/2025 9:00 AM EST Office Visit [facility] OPTOMETRY [address] [place] [address] Dana Fields, OD 230 [place] [address] documented as of this encounter Visit Diagnoses Not on filedocumented in this encounter Care Teams Manager Retirement Relationship Specialty Start Date End Date Joyce Tapia MD 230 [place] [address] PCP - General Family Medicine 06/19/12 05/01/25 Jenny Schmidt MD 505 [place] [address] PCP - General Family Medicine 05/02/25 Cristal Muhammad, PharmD 230 [place] [address] Pharmacist Pharmacy 08/07/24 Alan Torres, MAKEDA 505 [place] [address] Registered Nurse Family Medicine 05/06/25 Kaylene Luo 05/06/25 documented as of this encounter
--- OUTSIDE RECORDS SUMMARY | 2025-05-18 09:46 | XMS_ITS | Encounter Summary ---
Author Organization [employer] Address 75 [facility] 7t [place] [address] Care Team Providers Care Community Educator Name Role Phone Joyce Tapia MD Primary Care Provider [phone] Cristal Muhammad PharmD Unavailable [phone] Jenny Schmidt MD Primary Care Provider [phone] Alan Torres RN Unavailable [phone] Kaylene Luo Unavailable Reason for Visit * Reason Comments Med Refill Encounter Details Date Type Department Care Team ([facility] st Contact Info) Description 04/12/2024 Refill [facility] CHC MED & PEDS 505 [place], [place] [phone] Joyce Tapia MD 505 [place], [place] [phone] Status post surgical removal of nail matrix [...] [facility] Contact Info) Description 06/04/2025 11:00 AM EST Clinical Support [facility] MED & PEDS 505 [place] [address] Katherine Casper, RN 505 [place] [address] 07/29/2025 10:00 AM EST Medication Management [facility] MED & PEDS 505 [place] [address] Cristal Muhammad, PharmD 230 [place] [address] 08/26/2025 9:00 AM EST Office Visit [facility] OPTOMETRY 267 [place] [address] Dana Fields, OD 230 [place] [address] documented as of this encounter Visit Diagnoses Diagnosis Status post surgical removal of nail matrix of toe of left foot documented in this encounter Care Teams Community Educator Relationship Specialty Start Date End Date Joyce Tapia MD 230 [place] [address] PCP - General Family Medicine 06/19/12 05/01/25 Jenny Schmidt MD 505 [place] [address] PCP - General Family Medicine 05/02/25 Cristal Muhammad PharmD [address] [place] [address] Pharmacist Pharmacy 08/07/24 Alan Torres, MAKEDA 505 [place] [address] Registered Nurse Family Medicine 05/06/25 Kaylene uLo 05/06/25 documented as of this encounter
--- OUTSIDE RECORDS SUMMARY | 2025-05-18 09:47 | XMS_ITS | Encounter Summary ---
Author Organization [employer] Address 75 [facility] 7t [place] [address] Care Team Providers Care Vessel Traffic Officer Name Role Phone Joyce Tapia MD Primary Care Provider [phone] Cristal Muhammad PharmD Unavailable [phone] Jenny Schmidt MD Primary Care Provider [phone] Alan Torres RN Unavailable [phone] Kaylene Luo Unavailable Reason for Visit * Reason Onset Date Comments Med Refill 04/19/2024 Encounter Details Date Type Department Care Team (Late st Contact Info) Description 04/19/2024 Refill [facility] MEDICINE 230 [place] [address] Joyce Tapia MD [address] [place], [place] [phone] Status post surgical removal of nail matrix [...] Description 06/04/2025 11:00 AM EST Clinical Support [facility] MED & PEDS 505 [place] [address] Katherine Casper, RN 505 [place] [address] 07/29/2025 10:00 AM EST Medication Management [facility] MED & PEDS 505 [place] [address] Cristal Muhammad, PharmD 230 [place] [address] 08/26/2025 9:00 AM EST Office Visit [facility] OPTOMETRY [address] [place] [address] Dana Fields, OD 230 [place] [address] documented as of this encounter Visit Diagnoses Diagnosis Status post surgical removal of nail matrix of toe of left foot documented in this encounter Care Teams Vessel Traffic Officer Relationship Specialty Start Date End Date Joyce Tapia MD 230 [place] [address] PCP - General Family Medicine 06/19/12 05/01/25 Jenny Schmidt MD 505 [place] [address] PCP - General Family Medicine 05/02/25 Cristal Muhammad PharmD 230 [place] [address] Pharmacist Pharmacy 08/07/24 Alan Torres, MAKEDA 505 [place] [address] Registered Nurse Family Medicine 05/06/25 Kaylene Luo 05/06/25 documented as of this encounter
--- OUTSIDE RECORDS SUMMARY | 2025-05-18 09:47 | XMS_ITS | Encounter Summary ---
Author Organization [employer] Address 75 [facility] 7t [place] [address] Care Team Providers Care Lost And Found Clerk Name Role Phone Joyce Tapia MD Primary Care Provider [phone] Cristal Muhammad PharmD Unavailable [phone] Jenny Schmidt MD Primary Care Provider [phone] Alan Torres RN Unavailable [phone] Kaylene Luo Unavailable Reason for Visit * Reason Onset Date Comments Med Refill 03/02/2025 Encounter Details Date Type Department Care Team ([facility] st Contact Info) Description 03/02/2025 Telephone [facility] CHC MED & PEDS 505 [place], [place] [phone] Ayden Orellana MD 505 [place], [place] [phone] Med Refill Social History Tobacco Use Types [...] pickup. 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. documented in this encounter Plan of Treatment Upcoming Encounters Date Type Department Care Team ([facility] st Contact Info) Description 06/04/2025 11:00 AM EST Clinical Support [facility] MED & PEDS 505 [facility] [place] [address] Katherine Casper RN 505 [place] [address] 07/29/2025 10:00 AM EST Medication Management [facility] CHC MED & PEDS 505 [place] [address] Cristal Muhammad, Deonte 230 [place] [address] 08/26/2025 9:00 AM EST Office Visit [facility] OPTOMETRY [address] [place] [address] Donnie, Dana, OD 230 [place] [address] documented as of this encounter Visit Diagnoses Diagnosis Status post surgical removal of nail matrix of toe of left foot documented in this encounter Additional Health Concerns Assessment Noted Time PHQ-9 Depression Total Score: 7 09/15/19 9:02 AM EDT documented as of this encounter Care Teams Lost And Found Clerk Relationship Specialty Start Date End Date Joyce Tapia MD 230 [place] [address] PCP - General Family Medicine 06/19/12 05/01/25 Jenny Schmidt MD 505 [place] [address] PCP - General Family Medicine 05/02/25 Cristal Muhammad, BobD 230 [place] [address] Pharmacist Pharmacy 08/07/24 Alan Torres, MAKEDA 505 [place] [address] Registered Nurse Family Medicine 05/06/25 Kaylene Luo 05/06/25 documented as of this encounter
--- OUTSIDE RECORDS SUMMARY | 2025-05-18 09:48 | XMS_ITS | Encounter Summary ---
Author Organization [employer] Address 75 [facility] 7t [place] [address] Care Team Providers Care Mixer Runner Name Role Phone Joyce Tapia MD Primary Care Provider [phone] Cristal Muhammad PharmD Unavailable [phone] Jenny Schmidt MD Primary Care Provider [phone] Alan Torres RN Unavailable [phone] Kaylene Luo Unavailable Reason for Visit * Reason Onset Date Comments Med Refill 09/05/2024 Encounter Details Date Type Department Care Team (Late st Contact Info) Description 09/05/2024 Refill [facility] CHC MED & PEDS 505 [place], [place] [phone] Joyce Tapia MD 505 [place], [place] [phone] Status post surgical removal of nail matrix [...] Description 06/04/2025 11:00 AM EST Clinical Support [facility] MED & PEDS 505 [place] [address] Katherine Casper, RN 505 [place] [address] 07/29/2025 10:00 AM EST Medication Management [facility] MED & PEDS 505 [place] [address] Cristal Muhammad, PharmD 230 [place] [address] 08/26/2025 9:00 AM EST Office Visit [facility] OPTOMETRY [address] [place] [address] Dana Fields, OD 230 [place] [address] documented as of this encounter Visit Diagnoses Diagnosis Status post surgical removal of nail matrix of toe of left foot documented in this encounter Care Teams Mixer Runner Relationship Specialty Start Date End Date Joyce Tapia MD 230 [place] [address] PCP - General Family Medicine 06/19/12 05/01/25 Jenny Schmidt MD 505 [place] [address] PCP - General Family Medicine 05/02/25 Cristal Muhammad PharmD 230 [place] [address] Pharmacist Pharmacy 08/07/24 Alan Torres, MAKEDA 505 [place] [address] Registered Nurse Family Medicine 05/06/25 Kaylene Luo 05/06/25 documented as of this encounter
--- OUTSIDE RECORDS SUMMARY | 2025-05-18 09:48 | XMS_ITS | Encounter Summary ---
Author Organization [employer] Address 75 [facility] 7t [place] [address] Care Team Providers Care Temp Recruiter Name Role Phone Joyce Tapia MD Primary Care Provider [phone] Cristal Muhammad PharmD Unavailable [phone] Jenny Schmidt MD Primary Care Provider [phone] Alan Torres RN Unavailable [phone] Kaylene Luo Unavailable Reason for Visit * Reason Onset Date Comments Med Refill 03/17/2023 Encounter Details Date Type Department Care Team (Late st Contact Info) Description 03/17/2023 Telephone [facility] CHC MED & PEDS 505 [place], [place] [phone] Joyce Tapia MD 505 [place], [place] [phone] Med Refill Social History Tobacco Use Types [...] Description 06/04/2025 11:00 AM EST Clinical Support [facility] MED & PEDS 505 [place] [address] Katherine Casper, MAKEDA 505 [place] [address] 07/29/2025 10:00 AM EST Medication Management [facility] MED & PEDS 505 [place] [address] Cristal Muhammad PharmD 230 [place] [address] 08/26/2025 9:00 AM EST Office Visit [facility] OPTOMETRY [address] [place] [address] Dana Fields, OD 230 [place] [address] documented as of this encounter Visit Diagnoses Not on filedocumented in this encounter Care Teams Temp Recruiter Relationship Specialty Start Date End Date Joyce Tapia MD 230 [place] [address] PCP - General Family Medicine 06/19/12 05/01/25 Jenny Schmidt MD 505 [place] [address] PCP - General Family Medicine 05/02/25 Cristal Muhammad PharmD 230 [place] [address] Pharmacist Pharmacy 08/07/24 Alan Torres, MAKEDA [address] [place] [address], [place] [address] Registered Nurse Family Medicine 05/06/25 Kaylene Luo 05/06/25 documented as of this encounter
--- OUTSIDE RECORDS SUMMARY | 2025-05-18 09:49 | XMS_ITS | Encounter Summary ---
Author Organization [employer] Address [address] [facility] [address]t [place] [address] Care Team Providers Care Project Engineer Chemicals Name Role Phone Joyce Tapia MD Primary Care Provider [phone] Cristal Muhammad PharmD Unavailable [phone] Jenny Schmidt MD Primary Care Provider [phone] Alan Torres RN Unavailable [phone] Kaylene Luo Unavailable Reason for Visit * Reason Onset Date Comments Med Refill 04/14/2025 Encounter Details Date Type Department Care Team (Late st Contact Info) Description 04/14/2025 Refill [facility] MED & PEDS [address] [place], [place] [phone] Joyce Tapia MD [address] [place], [place] [phone] Status post surgical removal of nail matrix [...] Description 06/04/2025 11:00 AM EST Clinical Support [facility] MED & PEDS [address] [place] [address] Katherine Casper, MAKEDA [address] [place], [place] 07/29/2025 10:00 AM EST Medication Management [facility] MED & PEDS [address] [place] [address] Cristal Muhammad, PharmD [address] [place] [address] 08/26/2025 9:00 AM EST Office Visit [facility] OPTOMETRY [address] [place] [address] Dana Fields, OD [address] [place] [address] documented as of this encounter Visit Diagnoses Diagnosis Status post surgical removal of nail matrix of toe of left foot documented in this encounter Additional Health Concerns Assessment Noted Time PHQ-9 Depression Total Score: 7 09/15/19 9:02 AM EDT documented as of this encounter Care Teams Project Engineer Chemicals Relationship Specialty Start Date End Date Joyce Tapia MD [address] [place] [address] PCP - General Family Medicine 06/19/12 05/01/25 Jenny Schmidt MD [address] [place] [address] PCP - General Family Medicine 05/02/25 Cristal Muhammad PharmD [address] [place] [address] Pharmacist Pharmacy 08/07/24 Alan Torres, MAKEDA [address] [place] [address] Registered Nurse Family Medicine 05/06/25 Kaylene Luo 05/06/25 documented as of this encounter
--- OUTSIDE RECORDS SUMMARY | 2025-05-18 09:50 | XMS_ITS | Encounter Summary ---
Author Organization [employer] Address [address] [facility] [address]t [place] [address] Care Team Providers Care Instant Potato Processor Name Role Phone Joyce Tpaia MD Primary Care Provider [phone] Cristal Muhammad PharmD Unavailable [phone] Jenny Schmidt MD Primary Care Provider [phone] Alan Torres RN Unavailable [phone] Kaylene Luo Unavailable Reason for Visit * Reason Onset Date Comments Med Refill 04/08/2025 Encounter Details Date Type Department Care Team (Late st Contact Info) Description 04/08/2025 Refill [facility] CHC MED & PEDS [address] [place], [place] [phone] Ayden Orellana MD [address] [place], [place] [phone] Status post surgical removal of nail matrix [...] Upcoming Encounters Date Type Department Care Team ([facility] st Contact Info) Description 06/04/2025 11:00 AM EST Clinical Support [facility] MED & PEDS [address] [place] [address] Katherine Casper, MAKEDA [address] [place] [address] 07/29/2025 10:00 AM EST Medication Management [facility] MED & PEDS [address] [place] [address] Cristal Muhammad, PharmD [address] [place] [address] 08/26/2025 9:00 AM EST Office Visit [facility] OPTOMETRY [address] [place] [address] Dana Fields, OD [address] [place] [address] documented as of this encounter Visit Diagnoses Diagnosis Status post surgical removal of nail matrix of toe of left foot documented in this encounter Additional Health Concerns Assessment Noted Time PHQ-9 Depression Total Score: 7 09/15/19 25 9:02 AM EDT documented as of this encounter Care Teams Instant Potato Processor Relationship Specialty Start Date End Date Joyce Tapia MD [address] [place] [address] PCP - General Family Medicine 06/19/12 05/01/25 Jenny Schmidt MD [address] [place] [address] PCP - General Family Medicine 05/02/25 Cristal Muhammad PharmD [address] [place] [address] Pharmacist Pharmacy 08/07/24 Alan Torres, MAKEDA [address] [place] [address] Registered Nurse Family Medicine 05/06/25 Kaylene Luo 05/06/25 documented as of this encounter
--- OUTSIDE RECORDS SUMMARY | 2025-05-18 09:50 | XMS_ITS | Encounter Summary ---
Author Organization [employer] Address [address] [facility] [address]t [place] [address] Care Team Providers Care Grinding Operator Name Role Phone Joyce Tapia MD Primary Care Provider [phone] Cristal Muhammad PharmD Unavailable [phone] Jenny Schmidt MD Primary Care Provider [phone] Alan Torres RN Unavailable [phone] Kaylene Luo Unavailable Reason for Visit * Reason Onset Date Comments Med Refill 09/11/2024 Encounter Details Date Type Department Care Team (Late st Contact Info) Description 09/11/2024 Telephone [facility] MEDICINE [address] [place] [address] Joyce Tapia MD [address] [place], [place] [phone] Med Refill Social History Tobacco Use Types [...] Assessment Author Several days 09/14/2024 9:02 AM Nakul Higuera [place] * Feeling bad about yourself - [...] of Assessment Author 7 09/14/2024 9:02 AM aNkul Higuera [place] * How difficult have these problems made it for you to do your work, take care of things at home, or get along with other people? Answer Date of Assessment Author Somewhat difficult 09/14/2024 9:02 AM Dorothea Higuera [place] documented as of this encounter Miscellaneous Notes * Telephone Encounter - Sha Harris - 09/11/2024 9:37 AM EDT TC from pt requesting medication refill. Medications needing refill : oxyCODONE (Roxicodone) 5 MG immediate release tablet To be sent to: [facility]/pharmacy #[id number] - [place] - [phone] documented in this encounter Plan of Treatment Upcoming Encounters Date Type Department Care Team ([facility] st Contact Info) Description 06/04/2025 11:00 AM EST Clinical Support [facility] MED & PEDS [address] [facility] [place] [address] Katherine Casper, MAKEDA [address] [place] [address] 07/29/2025 10:00 AM EST Medication Management [facility] CHC MED & PEDS [address] [place] [address] Cristal Muhammad, PharmD [address] [place] [address] 08/26/2025 9:00 AM EST Office Visit [facility] OPTOMETRY [address] [place] [address] Donnie, Dana, OD [address] [place] [address] documented as of this encounter Visit Diagnoses Not on filedocumented in this encounter Care Teams Grinding Operator Relationship Specialty Start Date End Date Joyce Tapia MD [address] [place] [address] PCP - General Family Medicine 06/19/12 05/01/25 Jenny Schmidt MD [address] [place] [address] PCP - General Family Medicine 05/02/25 Cristal Muhammad, PharmD [address] [place] [address] Pharmacist Pharmacy 08/07/24 Alan Torres, RN [address] [place] [id number] Registered Nurse Family Medicine 05/06/25 Kaylene Luo 05/06/25 documented as of this encounter
--- OUTSIDE RECORDS SUMMARY | 2025-05-18 09:51 | XMS_ITS | Encounter Summary ---
Author Organization [employer] Address [address] [facility] 7[address] [place] [address] Care Team Providers Care Mule Spinner Name Role Phone Joyce Tapia MD Primary Care Provider [phone] Cristal Muhammad PharmD Unavailable [phone] Jenny Schmidt MD Primary Care Provider [phone] Alan Torres RN Unavailable [phone] Kaylene Luo Unavailable Reason for Visit * Reason Onset Date Comments Med Refill 10/24/2023 Encounter Details Date Type Department Care Team (Late st Contact Info) Description 10/24/2023 Telephone [facility] MEDICINE [address] [place] [address] Joyce Tapia MD [address] [place], [place] [phone] Med Refill Social History Tobacco Use Types [...] immediate release tablet To be sent to: [facility] - [address] documented in this encounter Plan of Treatment Upcoming Encounters Date Type Department Care Team ([facility] st Contact Info) Description 06/04/2025 11:00 AM EST Clinical Support [facility] MED & PEDS [address] [place] [address] Katherine Casper, RN [address] [place] [address] 07/29/2025 10:00 AM EST Medication Management [facility] MED & PEDS [address] [place] [address] Cristal Muhammad PharmD [address] [place] [address] 08/26/2025 9:00 AM EST Office Visit [facility] OPTOMETRY [address] [place] [address] Dana Fields, OD [address] [place] [address] documented as of this encounter Visit Diagnoses Not on filedocumented in this encounter Care Teams Mule Spinner Relationship Specialty Start Date End Date Joyce Tapia MD [address] [place] [address] PCP - General Family Medicine 06/19/12 05/01/25 Jenny Schmidt MD [address] [place] [address] PCP - General Family Medicine 05/02/25 Cristal Muhammad PharmD [address] [place] [address] Pharmacist Pharmacy 08/07/24 Alan Torres, RN [address] [place] [address] Registered Nurse Family Medicine 05/06/25 Kaylene Luo 05/06/25 documented as of this encounter
--- OUTSIDE RECORDS SUMMARY | 2025-05-18 09:51 | XMS_ITS | Clinical Summary ---
Author Organization [employer] Address [address] [facility] [address] [place] [address] Care Team Providers Care Marketing Forecaster Name Role Phone Cristal Muhammad PharmD Unavailable [phone] Jenny Schmidt MD Primary Care Provider [phone] Alan Torres RN Unavailable [phone] Kaylene Luo Unavailable Allergies Active Allergy Reactions Criticality Noted Date [...] daily. 025 Active Blood Glucose Monitoring Suppl (Caption Data Lite) w/Device kit Test blood sugar as [...] glass of water. 60 tablet 2 Active pramipexole (Mirapex) 0.5 MG tablet TAKE ONE TABLET THREE TIMES DAILY IN THE MORNING, EVENING AND BEDTIME 90 tablet 025 Active furosemide (Lasix) 20 MG tablet [...] medical assistance becomes available. 2 each 2 2025 Active oxyCODONE (Roxicodone) 5 MG immediate release tabletIndicatio ns:Status post surgical removal of nail matrix of toe of left foot TAKE ONE TABLET EVERY 6 HOURS NEEDED FOR SEVERE PAIN 30 tablet 025 Active Ferrous Sulfate (iron) 325 (65 Fe) MG tablet TAKE ONE TABLET EVERY MORNING 90 tablet 1 025 Active sertraline (Zoloft) 100 MG tablet TAKE ONE TABLET EVERY NIGHT AT BEDTIME 30 tablet 6 025 Active albuterol (2.5 MG/3ML) 0.083% nebulizer solutionIndicat ions:Mild intermittent asthma with exacerbation TAKE 3 ML BY NEBULIZATION ROUTE EVERY 6 HOURS NEEDED FOR WHEEZING 75 mL 2 025 Active albuterol 108 (90 Base) MCG/ACT inhalerIndicati ons:Wheezing INHALE 2 PUFFS BY MOUTH EVERY 4 HOURS NEEDED FOR WHEEZING 18 g 2 025 Active meclizine (Antivert) 25 MG tablet TAKE 1 TABLET BY MOUTH TWICE A DAY 60 tablet 3 025 Active FREESTYLE LITE test stripIndication s:Type 2 diabetes mellitus without complication, without long-term current use of insulin (HCC) USE TO TEST BLOOD SUGAR THREE TIMES A DAY 100 strip 5 025 Active Easy Touch Lancets 33G/Twist miscIndications :Type 2 diabetes mellitus without complication, without long-term current use of insulin ([facility]) USE TO TEST BLOOD SUGAR THREE TIMES A DAY 100 each 5 025 Active clotrimazole-be tamethasone (Lotrisone) cream APPLY 1 GRAM THREE TIMES A DAY TO AFFECTED AREA NEEDED FOR ITCHING/IRRITAT ION 025 Active linaGLIPtin (Tradjenta) 5 MG tabletIndicatio ns:Type 2 diabetes mellitus without complication, without long-term current use of insulin ([facility]) Take 1 tablet (5 mg) by mouth Once per day. 90 tablet 1 025 Active zolpidem (Ambien) 5 MG tablet TAKE ONE TABLET EVERY NIGHT AT BEDTIME NEEDED FOR SLEEP 30 tablet 025 Active gabapentin (Neurontin) 100 MG capsule TAKE 1 CAPSULE BY MOUTH TWICE A DAY 60 capsule 025 Active oxyCODONE (Roxicodone) 5 MG immediate release tabletIndicatio ns:Status post surgical removal of nail matrix of toe of left foot Take 1 tablet (5 mg) by mouth every 6 (six) hours if needed for severe pain for up to 14 days. 56 tablet 025 2024 Active minocycline 100 MG capsuleIndicati ons:Hidradeniti s suppurativa TAKE 1 CAPSULE BY MOUTH TWICE A DAY 60 capsule 1 025 Active cyanocobalamin (Vitamin B-12) 1000 MCG tablet TAKE ONE TABLET EVERY MORNING 90 tablet 1 025 Active lidocaine (Lidoderm) 5 % patchIndication s:Pain APPLY 1 PATCH TOPICALLY EVER DAY. REMOVE AND DISCARD PATCH WITHIN 12 HOURS OR DIRECTED BY MD. 30 patch Active cyanocobalamin (Vitamin B-12) 1000 MCG tablet TAKE ONE TABLET EVERY MORNING 90 tablet 1 025 2024 Discontinued minocycline 100 MG capsuleIndicati ons:Hidradeniti s suppurativa Take 1 capsule (100 mg) by mouth 2 times daily. 60 capsule 1 025 2024 Discontinued zolpidem (Ambien) 5 MG tablet TAKE ONE TABLET EVERY NIGHT AT BEDTIME NEEDED FOR SLEEP 30 tablet 025 2024 Discontinued(R eorder (will not trigger notification to Pharmacy)) lidocaine (Lidoderm) 5 % patchIndication s:Pain APPLY 1 PATCH TOPICALLY EVER DAY. REMOVE AND DISCARD PATCH WITHIN 12 HOURS OR DIRECTED BY MD. 30 patch 2024 Discontinued(R eorder (will [...] for up to 14 days. 56 tablet 2024 Discontinued(R eorder (will not trigger notification [...] Indication: fibromyalgia, neuropathic pain right hand Last HIGH REACH OPERATOR Agreement: 11/14/24 Tier: 3 (HIGH REACH OPERATOR visits Q4-6 months) GERD (gastroesophageal reflux [...] Recommendations brianna Adler will reach out to [facility] and/or [facility] if further supports needed Status post surgical [...] Encounters Date Type Department Care Team Description 05/15/2025 Refill [facility] [address] [place] [address] Cristal Muhammad PharmD 05/15/2025 Refill [facility] [address] [place], [place] [phone] Joyce Tapia MD Pain 05/14/2025 Refill [facility] [address] [place], [place] [phone] Joyce Tapia MD Pain 05/13/2025 Refill [facility] [address] [place], [place] [phone] Ayden Orellana MD Hidradenitis suppurativa 05/08/2025 Results Follow-Up [facility] [address] [place], [place] [phone] Jenny Schmidt MD Diabetes Eye Exam 05/08/2025 Orders Only [facility] Information Management [address] [place] [phone] Saumya Blake MD 05/06/2025 10:00 AM EST Telemedicine [facility] [address] [place], [place] [phone] Cristal Muhammad, PharmD Type 2 diabetes mellitus without complication, without long-term current use of insulin (HCC) (Primary Dx) 05/06/2025 Refill [facility] [address] [place], [place] [phone] Joyce Tapia MD Status post surgical removal of nail matrix of toe of left foot 05/06/2025 Patient Outreach [address] [phone] Jenny Schmidt MD Care Coordination (C3/W Kaylene Luo, Chart grisel) 05/06/2025 Telephone [facility] [address] [place], [place] [phone] Cristal Muhammad PharmD 05/06/2025 Patient Outreach [facility] [address] [place], [place] [phone] Jenny Schmidt MD Care Coordination (C3CM- chart review) 05/06/2025 Patient Outreach [facility] MEDICINE [address] [place] [address] Jenny Schmidt MD 05/06/2025 Travel 05/06/2025 Refill [facility] [address] [place], [place] [phone] Joyce Tapia MD Status post surgical removal of nail matrix of toe of left foot 05/05/2025 Refill [facility] [address] [place] [address] Joyce Tapia MD Status post surgical removal of nail matrix of toe of left foot 05/05/2025 Travel 05/03/2025 Travel 04/25/2025 Refill [facility] [address] [place] [address] Joyce Tapia MD 04/24/2025 Refill [facility] [address] [place] [address] Cristal Muhammad PharmD Type 2 diabetes mellitus without complication, without long-term current use of insulin (HCC) 04/21/2025 Refill [facility] [address] [place] [address] Joyce Tapia MD Status post surgical removal of nail matrix of toe of left foot 04/17/2025 Refill [facility] [address] [place] [address] Joyce Tapia MD Status post surgical removal of nail matrix of toe of left foot 04/16/2025 10:00 AM EDT Office Visit [facility] OPTOMETRY [address] [place] [address] Donnie, Dana, OD Type 2 diabetes mellitus without complication, without long-term current use of insulin (HCC) (Primary Dx) 04/16/2025 Travel 04/15/2025 Travel 04/14/2025 Refill [facility] [address] [place] [address] Joyce Tapia MD Status post surgical removal of nail matrix of toe of left foot 04/12/2025 Refill [facility] [address] [place] [address] Joyce Tapia MD Type 2 diabetes mellitus without complication, without long-term current use of insulin (HCC) 04/08/2025 Refill [facility] [address] [place] [address] Ayden Orellana MD Status post surgical removal of nail matrix of toe of left foot 04/07/2025 Refill [facility] [address] [place] [address] Joyce Tapia MD Status post surgical removal of nail matrix of toe of left foot 04/07/2025 Refill [facility] [address] [place] [address] Joyce Tapia MD 04/04/2025 Travel 04/03/2025 Travel 03/31/2025 Refill [facility] [address] [place] [address] Ayden Orellana MD Status post surgical removal of nail matrix of toe of left foot 03/27/2025 Refill [facility] [address] [place] [address] Joyce Tapia MD Pain 03/24/2025 Refill [facility] [address] [place] [address] Ayden Orellana MD Wheezing 03/24/2025 Refill [facility] [address] [place] [address] Joyce Tapia MD Pain; Status post surgical removal of nail matrix of toe of left foot 03/24/2025 Refill [facility] [address], [place] [phone] Juan Montanez MD Mild intermittent asthma with exacerbation; Wheezing; Pain 03/19/2025 10:30 AM EDT Office Visit [facility] [address] [place] [address] Ayden Orellana MD Hidradenitis suppurativa (Primary Dx) 03/19/2025 Travel 03/18/2025 Travel 03/17/2025 Refill [facility] [address] [place] [address] Joyce Tapia MD Status post surgical removal of nail matrix of toe of left foot 03/15/2025 Refill [facility] [address] [place] [address] Joyce Tapia MD 03/11/2025 11:30 AM EDT Telemedicine [facility] [address] [place] [address] Joyce Tapia MD Bone spur of left foot (Primary Dx); Type 2 diabetes mellitus without complication, without long-term current use of insulin (CMS/HCC); Fibromyalgia 03/11/2025 Travel 03/10/2025 Travel 03/10/2025 Refill [facility] [address] [facility] [address] Joyce Tapia MD Status post surgical removal of nail matrix of toe of left foot 03/09/2025 Refill [facility] [address] [facility] [place] [address] Joyce Tapia MD 03/08/2025 Telephone [facility] [address] [place] [address] Joyce Tapia MD Chart Prep 03/06/2025 Orders Only [facility] [address] [place] [address] Joyce Tapia MD Type 2 diabetes mellitus without complication, without long-term current use of insulin (CMS/HCC) (Primary Dx) 03/05/2025 Refill [facility] [address] [facility] [place] [address] Ayden Orellana MD Status post surgical removal of nail matrix of toe of left foot 03/05/2025 Patient Outreach [facility] [address] [place] [address] Joyce Tapia MD 03/04/2025 Refill [facility] [address] [place] [address] Ayden Orellana MD Status post surgical removal of nail matrix of toe of left foot 03/04/2025 Orders Only GENERIC EXTERNAL DATA DEPARTMENT Provider, Generic External Data 03/04/2025 Refill [facility] [address] [place] [address] Ayden Orellana MD 03/02/2025 Telephone [facility] [address] [place] [address] Ayden Orellana MD Med Refill 03/01/2025 Orders Only GENERIC EXTERNAL DATA DEPARTMENT Provider, Generic External Data 02/26/2025 Telephone [facility] [address] [place] [address] Myra Connors MD Referral-OBGYN 02/25/2025 Refill [facility] [address] [place] [address] Ayden Orellana MD Status post surgical removal of nail matrix of toe of left foot 02/23/2025 Refill [facility] [address] [place] [address] Ayden Orellana MD Status post surgical removal of nail matrix of toe of left foot 02/22/2025 Refill [facility] [address] [place] [address] Joyce Tapia MD 02/22/2025 Travel 02/19/2025 1:00 PM EDT Clinical Support [facility] [address] [place] [address] Katherine Casper RN Chronic bilateral low back pain with left-sided sciatica 02/19/2025 Refill [facility] [address] [place] [address] Katherine Casper RN 02/19/2025 Travel 02/17/2025 Refill [facility] [address] [place] [address] Emerson Keith MD Status post surgical removal of nail matrix of toe of left foot from Last 3 Months Immunizations Immunization Administration [...] [facility] [address] [place] [address] Katherine Casper, RN [address] [place] [address] 07/29/2025 10:00 AM EST Medication Management [facility] [address] [place] [address] Cristal Muhammad, PharmD [address] [place] [address] 08/26/2025 9:00 AM EST Office Visit [facility] OPT[facility]ET[facility] [address] [place] [address] Dana Fields, OD [address] [place] [address] Health Maintenance Due Date Last Done Comments CT Colonography 1962 FIT DNA/Cologuard 1962 FIT 1962 FOBT 1960 HIV Screening 1960 Sigmoidoscopy 1962 Hepatitis C Screening 1980 RSV Patients and Patients Aged 60 years or older (1 - Risk 50-74 years 1-dose series) 2012 Mammogram 05/28/2024 05/28/2023, 08/04, 08/16/2020, Additional history [...] Smear 03/31/2026 03/31/2021 Tobacco Screening 04/24/2026 04/24/2025 Eye Exam 05/08/2026 05/08/2025 DTaP/Tdap/Td Vaccines (3 - Td or Tdap) [...] Name Priority Date/Time Associated Diagnosis Comments HM DIABETES EYE EXAM Routine 05/08/2025 1:54 PM EST XR FOOT 3+ VIEWS LEFT Routine 03/04/2025 [...] complication, without long-term current use of insulin ([facility]) ALBUMIN, RANDOM URINE W/CREATININE Routine 09/25/2024 3:50 PM EDT LIPID PANEL, STANDARD Routine 09/25/2024 3:47 PM EDT BI MAMMOGRAM SCREENING TOMOSYNTHESIS BILATERAL Routine 05/28/2023 8:58 AM EST HPV MRNA E6/E7 Routine 03/31/2021 9:06 AM EDT THINPREP PAP Routine 03/31/2021 9:06 AM EDT HM COLONOSCOPY Routine 02/20/2015 from Last 3 Months or Most Recently Relevant to Health Maintenance Results * Diabetes Eye Exam (05/08/2025 1:54 PM EST) us Historical Provider HEALTH MAINTENANCE Final Result * XR Foot 3+ Views Left (03/04/2025 8:23 PM EDT) Only the most recent of2 resultswithin the time period is included. Anatomical Region Laterality Modality Lower Extremities, Foot Left [facility] 03/04/2025 8:23 PM EDT Narrative 03/04/2025 8:24 PM EDT [address] [address] XRay Report Signed Patient: Nayely Grover MR#: [id number] 541 : 1960 Acct:[id number] Age/Sex: 64 / F ADM Date: 03/04/25 Loc: HO.ED Attending Dr: Ordering Physician: David Juares Date of Service: 03/04/25 Procedure(s): XR foot LT min 3V Accession Number(s): [id number] cc: David Juares; Joyce Tapia MD CLINICAL HISTORY: pain 3 view left foot Comparison: CR/NJ/SR - XR FOOT 3 OR MORE VIEWS LEFT - 03/01/25 10:42 EDT Findings: Bones intact. No dislocations. Mild midfoot spurring. Moderate-sized plantar calcaneal spur. No ankle effusion. No radiopaque foreign body. IMPRESSION: 1. No evidence of acute fracture or dislocation. [id number] DJD. 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 No dislocations. Mild midfoot spurring. Moderate-sized plantar calcaneal spur. No ankle effusion. No radiopaque foreign body. IMPRESSION: 1. No evidence of acute fracture or dislocation. [id number] DJD. 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 White Blood Count 10.3 4.8 - 10.8 X10*3/uL [facility] Red Blood Count 4.69 4.20 - 5.50 X10*6/uL [facility] Hemoglobin 14.0 12.0 - 16.0 g/dl [facility] Hematocrit 41.0 37.0 - 47.0 % [facility] Mean Corpuscular Volume 87.4 80.0 - 98.0 fL [facility] Mean Corpuscular Hemoglobin 29.9 27.0 - 33.0 pg [facility] Mean Corpuscular HGB Conc 34.1 31.0 - 35.0 g/dl [facility] Red Cell Distribution Width 12.9 11.0 - 16.0 % [facility] Platelet Count 178 160 - 400 X10*3/uL [facility] Mean Platelet Volume 9.6 9.4 - 12.3 fL [facility] Neutrophils Percent Auto 67.0 45 - 73 % [facility] Imm Gran Pct Auto 0.3 0.0 - 0.4 % [facility] Lymphocytes Percent Auto 23.9 20 - 40 % [facility] Monocytes Percent Auto 6.5 2 - 11 % [facility] Eosinophils Percent Auto 2.0 0 - 4 % [facility] Basophils Percent Auto 0.3 0 - 2 % [facility] NRBC Pct Auto 0.0 0.0 - 0.2 /100WBC [facility] Neutrophils Absolute Auto 6.9 2.0 - 8.3 x10*3/uL [facility] Imm Gran Abs Auto 0.03 0.00 - 0.03 X10*3/uL [facility] Lymphocytes Absolute Auto 2.5 1.2 - 4.9 X10*3/uL [facility] Monocytes Absolute Auto 0.7 0.1 - 1.2 X10*3/uL [facility] Eosinophils Absolute Auto 0.2 0.0 - 0.4 X10*3/uL [facility] Basophils Absolute Auto 0.0 0.0 - 0.2 X10*3/uL [facility] NRBC Abs Auto 0.000 0.0 - 0.012 X10*3/uL [facility] 03/04/2025 7:20 PM EDT 03/04/2025 7:24 PM EDT us Generic External Data Provider LAB BLOOD ORDERAB LES Final Result [facility] [address] [place] [phone] * Partial Thromboplastin Time, Activated (APTT) (03/04/2025 7:20 PM EDT) Partial Thromboplastin Time 28.4 26.7 - 34.1 SEC [facility] 03/04/2025 7:20 PM EDT 03/04/2025 7:24 PM EDT Generic External Data Provider LAB BLOOD ORDERAB LES Final Result Performing Organization Address [facility] Co de Phone Number [facility] [address] [place] [phone] * Sed Rate by Modified Shaanren (03/04/2025 7:20 PM EDT) Erythrocyte Sedimentation Rate 7 0 - 20 MM/HR [facility] Comment:Patients with polycy themia and many hemoglobin abnormalitiesmay have depressed sed rates whereas patients with anemiamay have elevated sed rates. 03/04/2025 7:20 PM EDT 03/04/2025 7:24 PM EDT Generic External Data Provider LAB BLOOD ORDERAB LES Final Result Performing Organization Address [facility] Phone Number [facility] [address] [place] [phone] * (ABNORMAL) Prothrombin Time-INR (03/04/2025 7:20 PM EDT) Prothrombin Time 10.8(L) 10.9 - 12.4 SEC [facility] INTERNATIONAL NORM RATIO 0.9 0.9 - 1.1 [facility] Comment:INTERNATIONAL NORMAL IZED RATIO (INR) [...] Final Result Performing Organization Address [facility] Co de Phone Number [facility] [address] [place] [phone] * C-reactive Protein (03/04/2025 7:20 PM EDT) Pathologist [facility] C Reactive Protein <0.10 < or = 0.50 mg/dL [facility] 03/04/2025 7:20 PM EDT 03/04/2025 7:24 PM EDT Generic External Data Provider LAB BLOOD ORDERAB LES Final Result Performing Organization Address City/[facility]/ZIP Co de Phone Number [facility] [address] [place] [phone] * Uric acid (03/04/2025 7:20 PM EDT) [facility] Uric Acid 3.1 2.4 - 5.7 mg/dL [facility] 03/04/2025 7:20 PM EDT 03/04/2025 7:24 PM EDT Generic External Data Provider LAB BLOOD ORDERAB LES Final Result Performing Organization Address [facility]/ZIP Co de Phone Number [facility] [address] [place] [phone] * (ABNORMAL) Comprehensive Metabolic Panel (03/04/2025 7:20 PM EDT) Only the most recent of2 resultswithin the time period is included. Pathologist [facility] Sodium 143 135 - 145 mmol/L [facility] Potassium 4.0 3.3 - 5.1 mmol/L [facility] Chloride 110(H) 96 - 108 mmol/L [facility] Carbon Dioxide 27 22 - 29 mmol/L [facility] Anion Gap 10(L) 12 - 20 [facility] Urea Nitrogen (BUN) 19(H) 9 - 16 mg/dL [facility] Creatinine, Serum 0.85 0.5 - 1.4 mg/dL [facility] Creatinine Clr Calc Pharmacy 69.4 [facility] Comment:Provided height and weight: 165.1 cm,74.843 kg.eGFR (calculated from the MDRD study equation) and eCrCl(calculated from the Cockcroft-Gault equation) are based ondifferent parameters and may not yield comparable results.If eCrCl result is absurd, please check patient'sheight/weight. Estimated Glomerular Filt Rate >60 [facility] Comment:Chronic Kidney Disea se: Estimated GFR < 60 mL/min/[id number] Kidney Disease: Estimated GFR < 15 mL/min/1.73m2 Glucose 80 60 - 115 mg/dL [facility] Calcium 8.7 8.4 - 10.2 mg/dL [facility] Bilirubin, Total 0.3 0.0 - 1.0 mg/dL [facility] Aspartate Amino Transferase 24 5 - 31 U/L [facility] Alanine Aminotransferase 32(H) 0 - 31 U/L [facility] Total Protein 6.5 6.5 - 8.0 g/dL [facility] Albumin Level 4.1 3.5 - 5.0 g/dL [facility] Alkaline Phosphatase 92 39 - 117 U/L [facility] 03/04/2025 7:20 PM EDT 03/04/2025 7:24 PM EDT us Generic External Data Provider LAB BLOOD ORDERAB LES Final Result Performing Organization Address City/State/[facility] Co de Phone Number [facility] [address] [place] [phone] * Lower Extremity Venous Duplex (03/01/2025 11:30 AM EDT) 03/01/2025 11:3 0 AM EDT Narrative [facility] - 03/01/2025 12:26 PM EDT [address] [address] Ultrasound Report Signed Patient: Nayely Grover MR#: [id number] 541 : 1960 Acct:[id number] Age/Sex: 64 / F ADM Date: 03/01/25 Loc: HO.ED Attending Dr: Ordering Physician: Rabia Maki Date of Service: 03/01/25 Procedure(s): US venous duplex LE LT Accession Number(s): [id number] cc: Joyce Tapia MD; Rabia Maki EXAMINATION: [...] 03/01/25 1223 DD/ 1130 TD/TT: 03/01/25 1200 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: 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 Note Donotuseinterpreter, Image - 03/01/2025 [place] [address] Ultrasound Report Signed Patient: Nayely GroverMR#: [id number] 541 : 1960Acct:[id number] Age/Sex: 64 / FADM Date: 03/01/25 Loc: .ED Attending Dr: Ordering Physician: Rabia Maki Date of Service: 03/01/25 Procedure(s): US venous duplex LE LT Accession Number(s): [id number] cc: Joyce Tapia MD; Rabia Maki EXAMINATION: [...] 03/01/25 1223 DD/ 1130 TD/TT: 03/01/25 1200 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: [facility] External Provider CV VASC ULAR PROCEDURES Edited Result - Final Performing Organization Address [facility] Co de Phone Number [facility] [address] [place] [address] * Magnesium (03/01/2025 11:20 AM EDT) Pathologist [facility] Magnesium 2.1 1.6 - 2.6 mg/dL [facility] 03/01/2025 11:2 0 AM EDT 03/01/2025 11:21 AM EDT Generic External Data Provider LAB BLOOD ORDERAB LES Final Result Performing Organization Address [facility] Co de Phone Number [facility] [address] [place] [address] [phone] * (ABNORMAL) POCT GARETH-14 Urine Drug [...] 1:10 PM EDT Internal Pass Control Lot# [id number] Exp: 05-03-26 Joyce Tapia MD POINT OF [...] 3:50 PM EDT) Creatinine, Urine 83.95 mg/dL [facility] Microalbumin Urine <5.0 mg/L [facility] Microalbum Creatinine Ratio Ur TNP <30 ug/mg cr [facility] Comment:Unable to calculate albumin/creatinine ratio due to lowmicroalbumin or creatinine result. 09/25/2024 3:50 PM EDT 09/25/2024 5:55 PM EDT Joyce Tapia MD LAB URINE ORDERABLES Final Resul t [facility] [address] [place] [address] [phone] * Lipid Panel, Standard (09/25/2024 3:47 PM EDT) Triglycerides 56 <150 mg/dL [facility] Comment:Desirable Triglyceri de: less than 150 mg/dLBorderline High Triglyceride 150-199 mg/dLHigh Triglyceride: 200-499 mg/dLVery High Triglyceride: greater than or equal to 5OO mg/dL Cholesterol 119 <200 mg/dL [facility] Comment:Desirable Cholestero l: less than 200 mg/dLBorderline High Cholesterol: 200-239 mg/dLHigh Cholesterol: greater than 239 mg/dL LDL Cholesterol Calculated 47 <100 mg/dL [facility] Comment:Desirable LDL: less than 100 mg/dLNear Optimal/Above Optimal LDL: 110- 129 mg/dLBorderline High LDL: 130-159 mg/dLHigh LDL: 160-189 mg/dLVery High LDL: greater than or equal to 190 mg/dL HDL Cholesterol 61 >40 mg/dL [facility] Comment:Desirable HDL: great er than 40 mg/dL Note: This HDL assay may give artificially low results in patients with liver disease. 09/25/2024 3:47 PM EDT 09/25/2024 6:08 PM EDT Joyce Tapia MD LAB BLOOD ORDERABLES Final Resul t [facility] [address] [place] [phone] * BI Mammogram Screening Tomosynthesis Bilateral (05/28/2023 8:58 AM EST) Anatomical Region Laterality Modality Breast Bilateral Mammography 05/28/2023 8:58 AM EST Narrative 06/03/2023 8:41 AM EST [facility] [address] 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 Neon Tube Bender : SEE COMMENT [facility] Comment: JXM, CT(ASCP) CT screening location: [place] [address] Interpretation/R esult: Negative for intraepithelial lesion or malignancy. [facility] LMP: NONE GIVEN [facility] Prev. BX: NONE GIVEN [facility] Prev. PAP: 12/2016 NIL/NEG [facility] SOURCE: None given [facility] Statement Of Adequacy: SEE COMMENT [facility] Comment: Satisfactory for evaluation. Endocervical/transformation zone component absent. Age and/or menstrual status not provided 03/31/2021 9:06 AM EDT [facility] ORDERABLES Final Result Performing Organization Address [facility] de Phone Number [facility] [address] * HPV mRNA E6/E7 (03/31/2021 9:06 AM EDT) HPV nRNA E6/E7 Not Detected Not Detected [facility] Comment: Methodology: Train Controller-Mediated Amplification This assay detects E6/E7 viral messenger RNA (mRNA) from 14 high-risk HPV types (16,18,31,33,35,39,45,51,52,56,58,59,66,68). The analytical performance characteristics of this assay have been determined by [employer]. The modifications have not been cleared or approved by the FDA. This assay has been validated pursuant to the CLIA regulations and is used for clinical purposes. For additional information, please refer to http://education.ArtistForce/faq/CXK626v2 (This link if provided for information/ educational purposes only.) 03/31/2021 9:06 AM EDT [facility] B[facility]OD ORDERABLES Patt l Result Performing Organization Address [facility] Co de Phone Number [facility] [address] * Hm Colonoscopy (02/20/2015) Colonoscopy Normal Normal Narrative Zohra Benavidez - 02/20/2015 Repeat in 10 year Historical Provider HEALTH MAINTENANCE Final Result from Last 3 Months or Most Recently Relevant to Health Maintenance Insurance [facility] C3 Care Teams Marketing Forecaster Relationship Specialty Start Date End Date Jenny Schmidt MD [address] [place], [place] PCP - General Family Medicine 05/02/25 Cristal Muhammad PharmD [address] [place] [address] Pharmacist Pharmacy 08/07/24 Alan Torres, MAKEDA [address] [place], [place] Registered Nurse Family Medicine 05/06/25 Kaylene Luo 05/06/25
--- OUTSIDE RECORDS SUMMARY | 2025-05-18 09:52 | XMS_ITS | Encounter Summary ---
Author Organization [email or web address] Address 75 [facility] 7t [place] [address] Care Team Providers Care Labor Relations Or Personnel Negotiator Name Role Phone Joyce Tapia MD Primary Care Provider [phone] Cristal Muhammad PharmD Unavailable [phone] Jenny Schmidt MD Primary Care Provider [phone] Alan Torres RN Unavailable [phone] Kaylene Luo Unavailable Encounter Details Date Type Department Care Team ([facility] st Contact Info) Description 2024 Orders Only [facility] CH[facility] MED & PEDS [address] [place], [place] [phone] Joyce Tapia MD [address] [place], [place] [phone] Social History Tobacco Use Types Packs/Day Years [...] [facility] PED[facility] [address] [place] [address] Katherine Casper, RN [address] [place] [address] 07/29/2025 10:00 AM EST Medication Management [facility] MED & PEDS [address] [place] [address] Cristal Muhammad, PharmD [address] [place] [address] 08/26/2025 9:00 AM EST Office Visit [facility] OPTOMETRY [address] [place] [address] Dana Fields, OD [address] [place] [address] documented as of this encounter Visit Diagnoses Not on filedocumented in this encounter Additional Health Concerns Assessment Noted Time PHQ-9 Depression Total Score: 7 09/15/19 25 9:02 AM EDT documented as of this encounter Care Teams Labor Relations Or Personnel Negotiator Relationship Specialty Start Date End Date Joyce Tapia MD [address] [place] [address] PCP - General Family Medicine 06/19/12 05/01/25 Jenny Schmidt MD [address] [place] [address] PCP - General Family Medicine 05/02/25 Cristal Muhammad PharmD [address] [place] [address] Pharmacist Pharmacy 08/07/24 Alan Torres, MAKEDA [address] [place] [address] Registered Nurse Family Medicine 05/06/25 Kaylene Luo 05/06/25 documented as of this encounter
--- OUTSIDE RECORDS SUMMARY | 2025-05-18 09:53 | XMS_ITS | Encounter Summary ---
Author Organization [employer] Address 75 [facility] 7t [place] [address] Care Team Providers Care Russian Teacher Name Role Phone Joyce Tapia MD Primary Care Provider [phone] Cristal Muhammad PharmD Unavailable [phone] Jenny Schmidt MD Primary Care Provider [phone] Alan Torres RN Unavailable [phone] Kaylene Luo Unavailable Reason for Visit * Reason Onset Date Comments Appt 08/09/2024 Encounter Details Date Type Department Care Team (Late st Contact Info) Description 08/09/2024 Telephone [facility] [address] [place] [address] Joyce Tapia MD [address] [place], [place] [phone] Appt Social History Tobacco Use Types Packs/Day [...] can be changed for a phone visit. [phone] documented in this encounter Plan of Treatment Upcoming Encounters Date Type Department Care Team ([facility] st Contact Info) Description 06/04/2025 11:00 AM EST Clinical Support [facility] MED & PEDS [address] [place] [address] Katherine Casper, MAKEDA [address] [place] [address] 07/29/2025 10:00 AM EST Medication Management [facility] MED & PEDS [address] [place] [address] Cristal Muhammad, PharmD [address] [place] [address] 08/26/2025 9:00 AM EST Office Visit [facility] OPTOMETRY [address] [place] [address] Dana Fields, OD [address] [place] [address] documented as of this encounter Visit Diagnoses Not on filedocumented in this encounter Care Teams Russian Teacher Relationship Specialty Start Date End Date Joyce Tapia MD [address] [place] [address] PCP - General Family Medicine 06/19/12 05/01/25 Jenny Schmidt MD 505 [place] [address] PCP - General Family Medicine 05/02/25 Cristal Muhammad PharmD [address] [place] [address] Pharmacist Pharmacy 08/07/24 Alan Torres, MAKEDA [address] [place] [address] Registered Nurse Family Medicine 05/06/25 Kaylene Luo 05/06/25 documented as of this encounter
--- OUTSIDE RECORDS SUMMARY | 2025-05-18 09:54 | XMS_ITS | Encounter Summary ---
Author Organization [employer] Address 75 [facility] 7t [place] [address] Care Team Providers Care Accounting Representative Name Role Phone Joyce Tapia MD Primary Care Provider [phone] Cristal Muhammad PharmD Unavailable [phone] Jenny Schmidt MD Primary Care Provider [phone] Alan Torres RN Unavailable [phone] Kaylene Luo Unavailable Reason for Visit * Reason Comments Med Refill Encounter Details Date Type Department Care Team (Late st Contact Info) Description 11/04/[address] [facility] MED & PEDS [address] [place], [place] [phone] Joyce Tapia MD [address] [place], [place] [phone] Status post surgical removal of nail matrix [...] [facility] [address] [place] [address] Katherine Casper, MAKEDA [address] [place], [place] 07/29/2025 10:00 AM EST Medication Management [facility] MED & PEDS [address] [place], [place] [phone] Cristal Muhammad, eDonte [address] [place] [address] 08/26/2025 9:00 AM EST Office Visit [facility] OPTOMETRY [address] [place] [address] Dana Fields, OD [address] [place] [address] documented as of this encounter Visit Diagnoses Diagnosis Status post surgical removal of nail matrix of toe of left foot documented in this encounter Care Teams Accounting Representative Relationship Specialty Start Date End Date Joyce Tapia MD [address] [place] [address] PCP - General Family Medicine 06/19/12 05/01/25 Jenny Schmidt MD [address] [place], [place] PCP - General Family Medicine 05/02/25 Cristal Muhammad, BobD [address] [place] [address] Pharmacist Pharmacy 08/07/24 Alan Torres, MAKEDA [address] [place] [address] Registered Nurse Family Medicine 05/06/25 Kaylene Luo 05/06/25 documented as of this encounter
--- OUTSIDE RECORDS SUMMARY | 2025-05-18 09:54 | XMS_ITS | Encounter Summary ---
Author Organization [employer] Address 75 [facility] 7t [place] [address] Care Team Providers Care Chain Sales Consultant Name Role Phone Joyce Tapia MD Primary Care Provider [phone] Cristal Muhammad PharmD Unavailable [phone] Jenny Schmidt MD Primary Care Provider [phone] Alan Torres RN Unavailable [phone] Kaylene Luo Unavailable Reason for Visit * Reason Onset Date Comments Referral 03/09/2023 Encounter Details Date Type Department Care Team ([facility] st Contact Info) Description 03/09/[address] [facility] CHC MED & PEDS [address] [place], [place] [phone] Joyce Tapia MD [address] [place], [place] [phone] Referral Social History Tobacco Use Types Packs/Day [...] wait that long. Please contact pt at [phone] documented in this encounter Plan of Treatment Upcoming Encounters Date Type Department Care Team (Late st Contact Info) Description 06/04/2025 11:00 AM EST Clinical Support [facility] MED & PEDS [address] [place] [address] Katherine Casper, MAKEDA [address] [place] [address] 07/29/2025 10:00 AM EST Medication Management [facility] MED & PEDS [address] [place] [address] Cristal Muhammad PharmD [address] [place] [address] 08/26/2025 9:00 AM EST Office Visit [facility] OPTOMETRY [address] [place] [address] Dana Fields, OD [address] [place] [address] documented as of this encounter Visit Diagnoses Not on filedocumented in this encounter Care Teams Chain Sales Consultant Relationship Specialty Start Date End Date Joyce Tapia MD [address] [place] [address] PCP - General Family Medicine 06/19/12 05/01/25 Jenny Schmidt MD [address] [place] [address] PCP - General Family Medicine 05/02/25 Cristal Muhammad PharmD [address] [place] [address] Pharmacist Pharmacy 08/07/24 Alan Torres, RN [address] [place] [address] Registered Nurse Family Medicine 05/06/25 Kaylene Luo 05/06/25 documented as of this encounter
--- OUTSIDE RECORDS SUMMARY | 2025-05-18 09:55 | XMS_ITS | Encounter Summary ---
Author Organization [employer] Address 75 [facility] 7t [place] [address] Care Team Providers Care Molding Process Technician Name Role Phone Joyce Tapia MD Primary Care Provider [phone] Cristal Muhammad PharmD Unavailable [phone] Jenny Schmidt MD Primary Care Provider [phone] Alan Torres RN Unavailable [phone] Kaylene Luo Unavailable Reason for Visit * Reason Comments Med Refill Encounter Details Date Type Department Care Team (Late st Contact Info) Description 10/24/2023 Refill [facility] MEDICINE [address] [place] [address] Joyce Tapia MD [address] [place] [address] Status post surgical removal of nail matrix [...] Description 06/04/2025 11:00 AM EST Clinical Support [facility] CHC MED & PEDS [address] [place] [address] Katherine Casper, MAKEDA [address] [place] [address] 07/29/2025 10:00 AM EST Medication Management [facility] MED & PEDS [address] [place] [address] Cristal Muhammad, Deonte [address] [place] [address] 08/26/2025 9:00 AM EST Office Visit [facility] OPTOMETRY [address] [place] [address] Dana Fields, OD [address] [place] [address] documented as of this encounter Visit Diagnoses Diagnosis Status post surgical removal of nail matrix of toe of left foot documented in this encounter Care Teams Molding Process Technician Relationship Specialty Start Date End Date Joyce Tapia MD [address] [place] [address] PCP - General Family Medicine 06/19/12 05/01/25 Jenny Schmidt MD [address] [place] [address] PCP - General Family Medicine 05/02/25 Cristal Muhammad, PharmD [address] [place] [address] Pharmacist Pharmacy 08/07/24 Alan Torres, MAKEDA [address] [place] [address] Registered Nurse Family Medicine 05/06/25 Kaylene Luo 05/06/25 documented as of this encounter
--- OUTSIDE RECORDS SUMMARY | 2025-05-18 09:55 | XMS_ITS | Encounter Summary ---
Author Organization [employer] Address 75 [facility] 7t [place] [address] Care Team Providers Care Signwriter Name Role Phone Joyce Tapia MD Primary Care Provider [phone] Cristal Muhammad PharmD Unavailable [phone] Jenny Schmidt MD Primary Care Provider [phone] Alan Torres RN Unavailable [phone] Kaylene Luo Unavailable Reason for Visit * Reason Onset Date Comments Med Refill 04/19/2023 Encounter Details Date Type Department Care Team ([facility] st Contact Info) Description 04/19/2023 Telephone [facility] CHC MED & PEDS [address] [place], [place] [phone] Joyce Tapia MD [address] [place], [place] [phone] Med Refill Social History Tobacco Use Types [...] Description 06/04/2025 11:00 AM EST Clinical Support [facility] MED & PEDS [address] [place] [address] Katherine Casper RN [address] [place] [address] 07/29/2025 10:00 AM EST Medication Management [facility] MED & PEDS [address] [place] [address] Cristal Muhammad PharmD [address] [place] [address] 08/26/2025 9:00 AM EST Office Visit [facility] OPTOMETRY [address] [place] [address] Dana Fields, OD [address] [place] [address] documented as of this encounter Visit Diagnoses Not on filedocumented in this encounter Care Teams Signwriter Relationship Specialty Start Date End Date Jyoce Tapia MD [address] [place] [address] PCP - General Family Medicine 06/19/12 05/01/25 Jenny Schmidt MD [address] [place] [address] PCP - General Family Medicine 05/02/25 Cristal Muhammad PharmD [address] [place] [address] Pharmacist Pharmacy 08/07/24 Alan Torres, MAKEDA [address] [place] [address] Registered Nurse Family Medicine 05/06/25 Kaylene Luo 05/06/25 documented as of this encounter
--- OUTSIDE RECORDS SUMMARY | 2025-05-18 09:55 | XMS_ITS | Encounter Summary ---
Author Organization [employer] Address 75 [facility] 7t [place] [address] Care Team Providers Care Hyperbaric Technician Name Role Phone Joyce Tapia MD Primary Care Provider [phone] Cristal Muhammad PharmD Unavailable [phone] Jenny Schmidt MD Primary Care Provider [phone] Alan Torres RN Unavailable [phone] Kaylene Luo Unavailable Reason for Visit * Reason Onset Date Comments Med Refill 08/15/2024 Encounter Details Date Type Department Care Team (Late st Contact Info) Description 08/15/2024 Refill [facility] CHC MED & PEDS [address] [place], [place] [phone] Joyce Tapia MD [address] [place], [place] [phone] Status post surgical removal of nail matrix [...] [facility] MED & PEDS [address] [place] [address] Katherine Casper, RN [address] [place] [address] 07/29/2025 10:00 AM EST Medication Management [facility] MED & PEDS [address] [place] [address] Cristal Muhammad, PharmD [address] [place] [address] 08/26/2025 9:00 AM EST Office Visit [facility] OPTOMETRY [address] [place] [address] Dana Fields, OD [address] [place] [address] documented as of this encounter Visit Diagnoses Diagnosis Status post surgical removal of nail matrix of toe of left foot documented in this encounter Care Teams Hyperbaric Technician Relationship Specialty Start Date End Date Joyce Tapia MD [address] [place] [address] PCP - General Family Medicine 06/19/12 05/01/25 Jenny Schmidt MD [address] [place] [address] PCP - General Family Medicine 05/02/25 Cristal Muhammad PharmD [address] [place] [address] Pharmacist Pharmacy 08/07/24 Alan Torres, MAKEDA [address] [place] [address] Registered Nurse Family Medicine 05/06/25 Kaylene Luo 05/06/25 documented as of this encounter
--- OUTSIDE RECORDS SUMMARY | 2025-05-18 09:56 | XMS_ITS | Encounter Summary ---
Author Organization [employer] Address 75 [facility] 7t [place] [address] Care Team Providers Care Dragsaw Operator Name Role Phone Joyce Tapia MD Primary Care Provider [phone] Cristal Muhammad PharmD Unavailable [phone] Jenny Schmidt MD Primary Care Provider [phone] Alan Torres RN Unavailable [phone] Kaylene Luo Unavailable Encounter Details Date Type Department Care Team (Latest Contact Info) Description 03/21/2019 Abstract [facility] CONVERSIONS Dental, Provider, DDS Social [...] Care Team ( st Contact Info) Description 06/04/2025 11:00 AM EST Clinical Support [facility] MED & PEDS [address] [place], [place] [phone] Katherine Casper, MAKEDA 505 [place], [place] [phone] 07/29/2025 10:00 AM EST Medication Management [facility] MED & PEDS [address] [place], [place] [address] Cristal Muhammad, PharmD [address] [place] [address] 08/26/2025 9:00 AM EST Office Visit [facility] OPTOMETRY [address] [place] [address] Dana Fields, OD [address] [place] [address] documented as of this encounter Visit Diagnoses Not on filedocumented in this encounter Care Teams Dragsaw Operator Relationship Specialty Start Date End Date Joyce Tapia MD [address] [place] [address] PCP - General Family Medicine 06/19/12 05/01/25 Jenny Schmidt MD 505 [place] [address] PCP - General Family Medicine 05/02/25 Cristal Muhammad PharmD [address] [place] [address] Pharmacist Pharmacy 08/07/24 Alan Torres, MAKEDA [address] [place] [address] Registered Nurse Family Medicine 05/06/25 Kaylene Luo 05/06/25 documented as of this encounter
--- OUTSIDE RECORDS SUMMARY | 2025-05-18 09:56 | XMS_ITS ---
Author Organization [email or web address] Address [address] [place] [address] 7t [place] [address] Care Team Providers Care It Account Manager Name Role Phone Cristal Muhammad PharmD Unavailable [phone] Jenny Schmidt MD Primary Care Provider [phone] Alan Torres RN Unavailable Kaylene Luo Unavailable SHEAR OPERATOR HELPER Status:Enrolled (Active) Start date:10/22/2022 Enrollment date:10/22/2022 Case Team Name Relationship Phone Katherine Casper RN(Responsible Staff) Registered Nurse Continued Care and Services Coordination
--- OUTSIDE RECORDS SUMMARY | 2025-05-18 09:57 | XMS_ITS | Encounter Summary ---
Author Organization [employer] Address 75 [facility] 7t [place] [address] Care Team Providers Care Palliative Care Physician Name Role Phone Joyce Tapia MD Primary Care Provider [phone] Cristal Muhammad PharmD Unavailable [phone] Jenny Schmidt MD Primary Care Provider [phone] Alan Torres RN Unavailable [phone] Kaylene Luo Unavailable Reason for Visit * Reason Onset Date Comments Med Refill 07/13/2024 Encounter Details Date Type Department Care Team (Late st Contact Info) Description 07/13/2024 Refill [facility] MED[facility]INE 230 [place], [place] [phone] Amber Palacio MD 230 [place], [place] [phone] Smoker Social History Tobacco Use Types Packs/Day [...] [facility] st Contact Info) Description 06/04/2025 11:00 AM EST Clinical Support [facility] & [facility]ED[facility] 505 [place] [address] Katherine Casper, RN 505 [place] [address] 07/29/2025 10:00 AM EST Medication Management [facility] 505 [place] [address] Cristal Muhammad, PharmD 230 [place] [address] 08/26/2025 9:00 AM EST Office Visit [facility] OPTOMETRY [address] [place] [address] Dana Fields, OD 230 [place] [address] documented as of this encounter Visit Diagnoses Diagnosis Smoker Tobacco use disorder documented in this encounter Care Teams Palliative Care Physician Relationship Specialty Start Date End Date Joyce Tapia MD 230 [place] [address] PCP - General Family Medicine 06/19/12 05/01/25 Jenny Schmidt MD 505 [place] [address] PCP - General Family Medicine 05/02/25 Cristal Muhammad PharmD 230 [place] [address] Pharmacist Pharmacy 08/07/24 Alan Torres, MAKEDA 505 [place] [address] Registered Nurse Family Medicine 05/06/25 Kaylene Luo 05/06/25 documented as of this encounter
--- OUTSIDE RECORDS SUMMARY | 2025-05-18 09:57 | XMS_ITS | Clinical Summary ---
Author Organization 175 [facility] [employer] Address 175 [place] [address] Phone Care Team Providers Care Hand Model Name Role Phone Unavailable Primary Care Provider Unavailabl e Social History Tobacco Use Types Packs/Day Years Used Date Smoking Tobacco: Never Assessed Comments Unknown Sex and Gender Information Value Date Recorded Sex Assigned at Not on file Legal Sex Female 4:29 AM EST Gender Identity Not on file Sexual Orientation Not on file Plan of Treatment Upcoming Encounters Date Type Department Care Team ([facility] Contact Info) Description 05/20/2025 8:30 AM EST Consult Orthopedic Surgery - [place] [address] [address] Raymundo Manzo DPM [address] [address] Health Maintenance Due Date Last [...] Depression Screening 07/04/2024 COVID-19 Vaccine (1 - 2024-2 6 season) 2025 Influenza Vaccine (#1) 2025 Cholesterol [...]
--- OUTSIDE RECORDS SUMMARY | 2025-05-18 09:57 | XMS_ITS | Encounter Summary ---
Author Organization [employer] Address 75 [facility] 7t [place] [address] Care Team Providers Care Tooling Engineer Name Role Phone Joyce Tapia MD Primary Care Provider [phone] Cristal Muhammad PharmD Unavailable [phone] Jenny Schmidt MD Primary Care Provider [phone] Alan Torres RN Unavailable [phone] Kaylene Luo Unavailable Reason for Visit * Reason Onset Date Comments Med Refill 05/08/2024 Encounter Details Date Type Department Care Team (Late st Contact Info) Description 05/08/2024 Refill [facility] MEDICINE 230 [place] [address] Joyce Tapia MD [address] [place], [place] [phone] Muscle spasm Social History Tobacco Use Types [...] Description 06/04/2025 11:00 AM EST Clinical Support [facility] MED [facility]EDS [address] [place] [address] Katherine Casper, RN 505 [place] [address] 07/29/2025 10:00 AM EST Medication Management [facility] [address] [place] [address] Cristal Muhammad, PharmD 230 [place] [address] 08/26/2025 9:00 AM EST Office Visit [facility] OPTOMETRY [address] [place] [address] Dana Fields, OD 230 [place] [address] documented as of this encounter Visit Diagnoses Diagnosis Muscle spasm Spasm of muscle documented in this encounter Care Teams Tooling Engineer Relationship Specialty Start Date End Date Joyce Tapia MD 230 [place] [address] PCP - General Family Medicine 06/19/12 05/01/25 Jenny Schmidt MD 505 [place] [address] PCP - General Family Medicine 05/02/25 Cristal Muhammad PharmD 230 [place] [address] Pharmacist Pharmacy 08/07/24 Alan Torres, MAKEDA 505 [place] [address] Registered Nurse Family Medicine 05/06/25 Kaylene Luo 05/06/25 documented as of this encounter
--- OUTSIDE RECORDS SUMMARY | 2025-05-18 09:57 | XMS_ITS | Encounter Summary ---
Author Organization [employer] Address 75 [facility] 7t [place] [address] Care Team Providers Care Laboratory Operations Coordinator Name Role Phone Joyce Tapia MD Primary Care Provider [phone] Cristal Muhammad PharmD Unavailable [phone] Jenny Schmidt MD Primary Care Provider [phone] Alan Torres RN Unavailable [phone] Kaylene Luo Unavailable Reason for Visit * Reason Onset Date Comments Med Refill 04/25/2024 Encounter Details Date Type Department Care Team (Late st Contact Info) Description 04/25/2024 Telephone [facility] MEDICINE [address] [place] [address] Joyce Tapia MD [address] [place], [place] [phone] Med Refill Social History Tobacco Use Types [...] (Roxicodone) 5 MG To be sent to: [facility] documented in this encounter Plan of Treatment Upcoming Encounters Date Type Department Care Team ([facility] st Contact Info) Description 06/04/2025 11:00 AM EST Clinical Support [facility] MED & PEDS 505 [place] [address] Katherine Casper, MAKEDA 505 [place] [address] 07/29/2025 10:00 AM EST Medication Management [facility] MED & PEDS 505 [place] [address] Cristal Muhammad, PharmD 230 [place] [address] 08/26/2025 9:00 AM EST Office Visit [facility] OPTOMETRY [address] [place] [address] Dana Fields, OD 230 [place] [address] documented as of this encounter Visit Diagnoses Not on filedocumented in this encounter Care Teams Laboratory Operations Coordinator Relationship Specialty Start Date End Date Joyce Tapia MD 230 [place] [address] PCP - General Family Medicine 06/19/12 05/01/25 Jenny Schmidt MD 505 [place] [address] PCP - General Family Medicine 05/02/25 Cristal Muhammad PharmD 230 [place] [address] Pharmacist Pharmacy 08/07/24 Alan Torres, MAKEDA 505 [place] [address] Registered Nurse Family Medicine 05/06/25 Kaylene Luo 05/06/25 documented as of this encounter
--- OUTSIDE RECORDS SUMMARY | 2025-05-18 09:58 | XMS_ITS | Encounter Summary ---
Author Organization [employer] Address 75 [facility] 7t [place] [address] Care Team Providers Care Assistant Project Engineer Name Role Phone Joyce Tapia MD Primary Care Provider [phone] Cristal Muhammad PharmD Unavailable [phone] Jenny Schmidt MD Primary Care Provider [phone] Alan Torres RN Unavailable [phone] Kaylene Luo Unavailable Reason for Visit * Reason Onset Date Comments Med Refill 07/12/2024 Encounter Details Date Type Department Care Team (Late st Contact Info) Description 07/12/2024 Refill [facility] MED & PEDS 505 [place], [place] [phone] Joyce Tapia MD 505 [place], [place] [phone] Status post surgical removal of nail matrix [...] [facility] 505 [place] [address] Katherine Casper, RN 505 [place] [address] 07/29/2025 10:00 AM EST Medication Management [facility] 505 [place] [address] Cristal Muhammad, PharmD 230 [place] [address] 08/26/2025 9:00 AM EST Office Visit [facility] OPTOMETRY [address] [place] [address] Dana Fields, OD 230 [place] [address] documented as of this encounter Visit Diagnoses Diagnosis Status post surgical removal of nail matrix of toe of left foot documented in this encounter Care Teams Assistant Project Engineer Relationship Specialty Start Date End Date Jocye Tapia MD 230 [place] [address] PCP - General Family Medicine 06/19/12 05/01/25 Jenny Schmidt MD 505 [place] [address] PCP - General Family Medicine 05/02/25 Cristal Muhammad PharmD 230 [place] [address] Pharmacist Pharmacy 08/07/24 Alan Torres, MAKEDA 505 [place] [address] Registered Nurse Family Medicine 05/06/25 Kaylene Luo 05/06/25 documented as of this encounter
--- OUTSIDE RECORDS SUMMARY | 2025-05-18 09:58 | XMS_ITS | Encounter Summary ---
Author Organization [employer] Address 75 [facility] 7t [place] [address] Care Team Providers Care Tow Motor Mechanic Name Role Phone Joyce Tapia MD Primary Care Provider [phone] Cristal Muhammad PharmD Unavailable [phone] Jenny Schmidt MD Primary Care Provider [phone] Alan Torres RN Unavailable [phone] Kaylene Luo Unavailable Reason for Visit * Reason Onset Date Comments Med Refill 07/13/2024 Encounter Details Date Type Department Care Team (Late st Contact Info) Description 07/13/2024 Refill [facility] MED & PEDS 505 [place], [place] [phone] Joyce Tapia MD 505 [place], [place] [phone] Social History Tobacco Use Types Packs/Day Years [...] [facility] MED & PEDS 505 [place] [address] Katherine Casper, RN 505 [place] [address] 07/29/2025 10:00 AM EST Medication Management [facility] MED & PEDS 505 [place] [address] Cristal Muhammad, PharmD 230 [place] [address] 08/26/2025 9:00 AM EST Office Visit [facility] OPTOMETRY [address] [place] [address] Dana Fields, OD 230 [place] [address] documented as of this encounter Visit Diagnoses Not on filedocumented in this encounter Care Teams Tow Motor Mechanic Relationship Specialty Start Date End Date Joyce Tapia MD 230 [place] [address] PCP - General Family Medicine 06/19/12 05/01/25 Jenny Schmidt MD 505 [place] [address] PCP - General Family Medicine 05/02/25 Cristal Muhammad PharmD 230 [place] [address] Pharmacist Pharmacy 08/07/24 Alan Torres, MAKEDA 505 [place] [address] Registered Nurse Family Medicine 05/06/25 Kaylene Luo 05/06/25 documented as of this encounter
--- OUTSIDE RECORDS SUMMARY | 2025-05-18 09:59 | XMS_ITS | Encounter Summary ---
Author Organization [employer] Address 75 [facility] 7t [place] [address] Care Team Providers Care Sawmilling Operator Name Role Phone Joyce Tapia MD Primary Care Provider [phone] Cristal Muhammad PharmD Unavailable [phone] Jenny Schmidt MD Primary Care Provider [phone] Alan Torres RN Unavailable [phone] Kaylene Luo Unavailable Reason for Visit * Reason Onset Date Comments Med Refill 07/27/2024 Encounter Details Date Type Department Care Team (Late st Contact Info) Description 07/27/2024 Refill [facility] MEDICINE 230 [place] [address] Emerson Keith MD 505 [place], [place] [phone] Status post surgical removal of nail matrix [...] [facility] 505 [place] [address] Katherine Casper, RN 505 [place] [address] 07/29/2025 10:00 AM EST Medication Management [facility] MED & PEDS 505 [place] [address] Cristal Muhammad, PharmD 230 [place] [address] 08/26/2025 9:00 AM EST Office Visit [facility] OPTOMETRY [address] [place] [address] Dana Fields, OD 230 [place] [address] documented as of this encounter Visit Diagnoses Diagnosis Status post surgical removal of nail matrix of toe of left foot documented in this encounter Care Teams Sawmilling Operator Relationship Specialty Start Date End Date Joyce Tapia MD 230 [place] [address] PCP - General Family Medicine 06/19/12 05/01/25 Jenny Schmidt MD 505 [place] [address] PCP - General Family Medicine 05/02/25 Cristal Muhammad PharmD 230 [place] [address] Pharmacist Pharmacy 08/07/24 Alan Torres, MAKEDA 505 [place] [address] Registered Nurse Family Medicine 05/06/25 Kaylene Luo 05/06/25 documented as of this encounter
--- OUTSIDE RECORDS SUMMARY | 2025-05-18 09:59 | XMS_ITS | Encounter Summary ---
Author Organization [employer] Address 75 [facility] 7t [place] [address] Care Team Providers Care Software Sales Executive Name Role Phone Joyce Tapia MD Primary Care Provider [phone] Cristal Muhammad PharmD Unavailable [phone] Jenny Schmidt MD Primary Care Provider [phone] Alan Torres RN Unavailable [phone] Kaylene Luo Unavailable Reason for Visit * Reason Comments Med Refill Encounter Details Date Type Department Care Team (Late st Contact Info) Description 10/11/2023 Refill [facility] MEDICINE 230 [place] [address] Ayden Orellana MD 505 [place], [place] [phone] Status post surgical removal of nail matrix [...] 06/04/2025 11:00 AM EST Clinical Support [facility] MED & PEDS 505 [place] [address] Katherine Casper, MAKEDA 505 [place], [place] 07/29/2025 10:00 AM EST Medication Management [facility] MED & PEDS 505 [place], [place] [phone] Cristal Muhammad, Deonte 230 [place] [address] 08/26/2025 9:00 AM EST Office Visit [facility] OPTOMETRY [address] [place] [address] Dana Fields, OD 230 [place] [address] documented as of this encounter Visit Diagnoses Diagnosis Status post surgical removal of nail matrix of toe of left foot documented in this encounter Care Teams Software Sales Executive Relationship Specialty Start Date End Date Joyce Tapia MD 230 [place] [address] PCP - General Family Medicine 06/19/12 05/01/25 Jenny Schmidt MD 505 [place], [place] PCP - General Family Medicine 05/02/25 Cristal Muhammad, BobD [address] [place] [address] Pharmacist Pharmacy 08/07/24 Alan Torres, MAKEDA [address] [place] [address] Registered Nurse Family Medicine 05/06/25 Kaylene Luo 05/06/25 documented as of this encounter
--- OUTSIDE RECORDS SUMMARY | 2025-05-18 10:00 | XMS_ITS | Encounter Summary ---
Author Organization [employer] Address 75 [facility] 7t [place] [address] Care Team Providers Care Body Shop Mechanic Name Role Phone Joyce Tapia MD Primary Care Provider [phone] Cristal Muhammad PharmD Unavailable [phone] Jenny Schmidt MD Primary Care Provider [phone] Alan Torres RN Unavailable [phone] Kaylene Luo Unavailable Reason for Visit * Reason Comments Med Refill Encounter Details Date Type Department Care Team (Late st Contact Info) Description 10/03/2023 Refill [facility] MED & PEDS 505 [place], [place] [phone] Joyce Tapia MD 505 [place] [address] Arthropathy Social History Tobacco Use Types Packs/Day [...] Description 06/04/2025 11:00 AM EST Clinical Support [facility] MED & PEDS 505 [place] [address] Katherine Casper, MAKEDA 505 [place] [address] 07/29/2025 10:00 AM EST Medication Management [facility] CHC MED & PEDS 505 [place] [address] Cristal Muhammad, PharmShante 230 [place] [address] 08/26/2025 9:00 AM EST Office Visit [facility] OPTOMETRY [address] [place] [address] Dana Fields, OD 230 [place] [address] documented as of this encounter Visit Diagnoses Diagnosis Arthropathy Unspecified arthropathy, site unspecified documented in this encounter Care Teams Body Shop Mechanic Relationship Specialty Start Date End Date Joyce Tapia MD 230 [place] [address] PCP - General Family Medicine 06/19/12 05/01/25 Jenny Schmidt MD 505 [place] [address] PCP - General Family Medicine 05/02/25 Cristal Muhammad, Deonte 230 [place] [address] Pharmacist Pharmacy 08/07/24 Alan Torres, MAKEDA 505 [place], [place] Registered Nurse Family Medicine 05/06/25 Kaylene Luo 05/06/25 documented as of this encounter
--- OUTSIDE RECORDS SUMMARY | 2025-05-18 10:01 | XMS_ITS | Encounter Summary ---
Author Organization [employer] Address 75 [facility] 7t [place] [address] Care Team Providers Care Mail Order Biller Name Role Phone Joyce Tapia MD Primary Care Provider [phone] Cristal Muhammad PharmD Unavailable [phone] Jenny Schmidt MD Primary Care Provider [phone] Alan Torres RN Unavailable [phone] Kaylene Luo Unavailable Reason for Visit * Reason Onset Date Comments Med Refill 05/28/2024 Encounter Details Date Type Department Care Team (Late st Contact Info) Description 05/28/2024 Refill [facility] CH[facility] MED & PEDS 505 [place], [place] [phone] Joyce Tapia MD 505 [place], [place] [phone] Status post surgical removal of nail matrix [...] [facility] MED & PEDS 505 [place] [address] Katherine Casper, RN 505 [place] [address] 07/29/2025 10:00 AM EST Medication Management [facility] MED & PEDS 505 [place] [address] Cristal Muhammad, PharmD 230 [place] [address] 08/26/2025 9:00 AM EST Office Visit [facility] OPTOMETRY [address] [place] [address] Dana Fields, OD 230 [place] [address] documented as of this encounter Visit Diagnoses Diagnosis Status post surgical removal of nail matrix of toe of left foot documented in this encounter Care Teams Mail Order Biller Relationship Specialty Start Date End Date Joyce Tapia MD 230 [place] [address] PCP - General Family Medicine 06/19/12 05/01/25 Jenny Schmidt MD 505 [place] [address] PCP - General Family Medicine 05/02/25 Cristal Muhammad PharmD 230 [place] [address] Pharmacist Pharmacy 08/07/24 Alan Torres, MAKEDA 505 [place] [address] Registered Nurse Family Medicine 05/06/25 Kaylene Luo 05/06/25 documented as of this encounter
--- OUTSIDE RECORDS SUMMARY | 2025-05-18 10:01 | XMS_ITS | Encounter Summary ---
Author Organization [employer] Address 75 [facility] 7t [place] [address] Care Team Providers Care Steel Placer Name Role Phone Joyce Tapia MD Primary Care Provider [phone] Cristal Muhammad PharmD Unavailable [phone] Jenny Schmidt MD Primary Care Provider [phone] Alan Torres RN Unavailable [phone] Kaylene Luo Unavailable Reason for Visit * Reason Comments Med Refill Encounter Details Date Type Department Care Team ([facility] st Contact Info) Description 03/27/2025 Refill [facility] MED & PEDS 505 [place], [place] [phone] Joyce Tapia MD 505 [place], [place] [phone] Pain Social History Tobacco Use Types Packs/Day [...] the past 12 months, has t he [employer], gas, oil or water company threatened to [...] [facility] 505 [place] [address] Katherine Casper, RN 505 [place] [address] 07/29/2025 10:00 AM EST Medication Management [facility] MED & PEDS 505 [place] [address] Cristal Muhammad, PharmD 230 [place] [address] 08/26/2025 9:00 AM EST Office Visit [facility] OPTOMETRY 267 [place] [address] Dana Fields, OD 230 [place] [address] documented as of this encounter Visit Diagnoses Diagnosis Pain Generalized pain documented in this encounter Additional Health Concerns Assessment Noted Time PHQ-9 Depression Total Score: 7 09/15/19 25 9:02 AM EDT documented as of this encounter Care Teams Steel Placer Relationship Specialty Start Date End Date Joyce Tapia MD [address] [place] [address] PCP - General Family Medicine 06/19/12 05/01/25 Jenny Schmidt MD 505 [place] [address] PCP - General Family Medicine 05/02/25 Cristal Muhammad PharmD [address] [place] [address] Pharmacist Pharmacy 08/07/24 Alan Torres, MAKEDA 505 [place] [address] Registered Nurse Family Medicine 05/06/25 Kaylene Luo 05/06/25 documented as of this encounter
--- OUTSIDE RECORDS SUMMARY | 2025-05-18 10:01 | XMS_ITS | Encounter Summary ---
Author Organization [employer] Address 75 [facility] 7t [place] [address] Care Team Providers Care Cosmetology Instructor Name Role Phone Joyce Tapia MD Primary Care Provider [phone] Cristal Muhammad PharmD Unavailable [phone] Jenny Schmidt MD Primary Care Provider [phone] Alan Torres RN Unavailable [phone] Kaylene Luo Unavailable Reason for Visit * Reason Onset Date Comments Med Refill 03/24/2025 Encounter Details Date Type Department Care Team ([facility] st Contact Info) Description 03/24/2025 Refill [facility] MED & PEDS 505 [place], [place] [phone] Ayden Orellana MD 505 [place], [place] [phone] Wheezing Social History Tobacco Use Types Packs/Day [...] the past 12 months, has t he [employer], gas, oil or water company threatened to [...] [facility] MED & PEDS 505 [place] [address] Katherine Casper, RN 505 [place] [address] 07/29/2025 10:00 AM EST Medication Management [facility] MED & PEDS 505 [place] [address] Cristal Muhammad, PharmD 230 [place] [address] 08/26/2025 9:00 AM EST Office Visit [facility] OPTOMETRY [address] [place] [address] Dana Fields, OD 230 [place] [address] documented as of this encounter Visit Diagnoses Diagnosis Wheezing documented in this encounter Additional Health Concerns Assessment Noted Time PHQ-9 Depression Total Score: 7 09/15/19 25 9:02 AM EDT documented as of this encounter Care Teams Cosmetology Instructor Relationship Specialty Start Date End Date Joyce Tapia MD 230 [place] [address] PCP - General Family Medicine 06/19/12 05/01/25 Jenny Schmidt MD 505 [place] [address] PCP - General Family Medicine 05/02/25 Cristal Muhammad PharmD 230 [place] [address] Pharmacist Pharmacy 08/07/24 Alan Torres, MAKEDA 505 [place] [address] Registered Nurse Family Medicine 05/06/25 Kaylene Luo 05/06/25 documented as of this encounter
--- OUTSIDE RECORDS SUMMARY | 2025-05-18 10:01 | XMS_ITS | Encounter Summary ---
Author Organization [employer] Address 75 [facility] 7t [place] [address] Care Team Providers Care Home Agent Name Role Phone Joyce Tapia MD Primary Care Provider [phone] Cristal Muhammad PharmD Unavailable [phone] Jenny Schmidt MD Primary Care Provider [phone] Alan Torres RN Unavailable [phone] Kaylene Luo Unavailable Reason for Visit * Reason Onset Date Comments Med Refill 05/21/2024 Encounter Details Date Type Department Care Team ([facility] st Contact Info) Description 05/21/2024 Refill [facility] CHC MED & PEDS 505 [place], [place] [phone] Joyce Tapia MD 505 [place], [place] [phone] Social History Tobacco Use Types Packs/Day Years [...] Description 06/04/2025 11:00 AM EST Clinical Support [facility] MED & PEDS 505 [place] [address] Katherine Casper, RN 505 [place] [address] 07/29/2025 10:00 AM EST Medication Management [facility] MED & PEDS 505 [place] [address] Cristal Muhammad, PharmD 230 [place] [address] 08/26/2025 9:00 AM EST Office Visit [facility] OPTOMETRY [address] [place] [address] Dana Fields, OD 230 [place] [address] documented as of this encounter Visit Diagnoses Not on filedocumented in this encounter Care Teams Home Agent Relationship Specialty Start Date End Date Joyce Tapia MD 230 [place] [address] PCP - General Family Medicine 06/19/12 05/01/25 Jenny Schmidt MD 505 [place] [address] PCP - General Family Medicine 05/02/25 Cristal Muhammad PharmD 230 [place] [address] Pharmacist Pharmacy 08/07/24 Alan Torres, MAKEDA 505 [place] [address] Registered Nurse Family Medicine 05/06/25 Kaylene Luo 05/06/25 documented as of this encounter
--- OUTSIDE RECORDS SUMMARY | 2025-05-18 10:01 | XMS_ITS | Encounter Summary ---
Author Organization [employer] Address 75 [facility] 7t [place] [address] Care Team Providers Care Accounting Tutor Name Role Phone Joyce Tapia MD Primary Care Provider [phone] Cristal Muhammad PharmD Unavailable [phone] Jenny Schmidt MD Primary Care Provider [phone] Alan Torres RN Unavailable [phone] Kaylene Luo Unavailable Reason for Visit * Reason Onset Date Comments Med Refill 06/05/2024 Encounter Details Date Type Department Care Team (Late st Contact Info) Description 06/05/2024 Refill [facility] 230 [place] [address] Joyce Tapia MD [address] [place], [place] [id number] Status post surgical removal of nail matrix [...] [facility] 505 [place] [address] Katherine Casper, RN 505 [place] [address] 07/29/2025 10:00 AM EST Medication Management [facility] 505 [place] [address] Cristal Muhammad, PharmD 230 [place] [address] 08/26/2025 9:00 AM EST Office Visit [facility] OPTOMETRY 267 [place] [address] Dana Fields, OD 230 [place] [address] documented as of this encounter Visit Diagnoses Diagnosis Status post surgical removal of nail matrix of toe of left foot documented in this encounter Care Teams Accounting Tutor Relationship Specialty Start Date End Date Joyce Tapia MD 230 [place] [address] PCP - General Family Medicine 06/19/12 05/01/25 Jenny Schmidt MD 505 [place] [address] PCP - General Family Medicine 05/02/25 Cristal Muhammad PharmD 230 [place] [address] Pharmacist Pharmacy 08/07/24 Alan Torres, MAKEDA 505 [place] [address] Registered Nurse Family Medicine 05/06/25 Kaylene Luo 05/06/25 documented as of this encounter
--- OUTSIDE RECORDS SUMMARY | 2025-05-18 10:02 | XMS_ITS | Encounter Summary ---
Author Organization [employer] Address 75 [facility] 7t [place] [address] Care Team Providers Care Business Administrator Name Role Phone Joyce Tapia MD Primary Care Provider Cristal Muhammad PharmD Unavailable [phone] Jenny Schmdit MD Primary Care Provider [phone] Alan Torres RN Unavailable [phone] Kaylene Luo Unavailable Reason for Visit * Reason Onset Date Comments Med Refill 02/25/2025 Encounter Details Date Type Department Care Team (Late st Contact Info) Description 02/25/2025 Refill [facility] MED [facility] PEDS 505 [place], [place] [phone] Ayden Orellana MD 505 [place], [place] [phone] Status post surgical removal of nail matrix [...] Upcoming Encounters Date Type Department Care Team ([facility] Contact Info) Description 06/04/2025 11:00 AM EST Clinical Support [facility] MED & PEDS 505 [place] [address] Katherine Casper, RN 505 [place] [address] 07/29/2025 10:00 AM EST Medication Management [facility] MED & PEDS 505 [place] [address] Cristal Muhammad, PharmD 230 [place] [address] 08/26/2025 9:00 AM EST Office Visit [facility] OPTOMETRY 267 [place] [address] Dana Fields, OD 230 [place] [address] documented as of this encounter Visit Diagnoses Diagnosis Status post surgical removal of nail matrix of toe of left foot documented in this encounter Additional Health Concerns Assessment Noted Time PHQ-9 Depression Total Score: 7 09/15/19 25 9:02 AM EDT documented as of this encounter Care Teams Business Administrator Relationship Specialty Start Date End Date Joyce Tapia MD 230 [place] [address] PCP - General Family Medicine 06/19/12 05/01/25 Jenny Schmidt MD 505 [place] [address] PCP - General Family Medicine 05/02/25 Cristal Muhammad PharmD 230 [place] [address] Pharmacist Pharmacy 08/07/24 Alan Torres, MAKEDA 505 [place] [address] Registered Nurse Family Medicine 05/06/25 Kaylene Luo 05/06/25 documented as of this encounter
--- OUTSIDE RECORDS SUMMARY | 2025-05-18 10:02 | XMS_ITS | Encounter Summary ---
Author Organization [employer] Address 75 [facility] 7t [place] [address] Care Team Providers Care Field Sampling Technician Name Role Phone Joyce Tapia MD Primary Care Provider [phone] Cristal Muhammad PharmD Unavailable [phone] Jenny Schmidt MD Primary Care Provider Alan Torres RN Unavailable [phone] Kaylene Luo Unavailable Reason for Visit * Reason Comments Med Refill Encounter Details Date Type Department Care Team (Late st Contact Info) Description 07/29/2023 Refill [facility] 230 [place] [address] Joyce Tapia MD [address] [place] [address] Status post surgical removal of nail matrix [...] Support [facility] 505 [place] [address] Katherine Casper, MAKEDA 505 [place] [address] 07/29/2025 10:00 AM EST Medication Management [facility] MED & PEDS 505 [place] [address] Cristal Muhammad, Deonte 230 [place] [address] 08/26/2025 9:00 AM EST Office Visit [facility] OPTOMETRY 267 [place] [address] Dana Fields, OD 230 [place] [address] documented as of this encounter Visit Diagnoses Diagnosis Status post surgical removal of nail matrix of toe of left foot documented in this encounter Care Teams Field Sampling Technician Relationship Specialty Start Date End Date Joyce Tapia MD 230 [place] [address] PCP - General Family Medicine 06/19/12 05/01/25 Jenny Schmidt MD [address] [place] [address] PCP - General Family Medicine 05/02/25 Cristal Muhammad, PharmD 230 [place] [address] Pharmacist Pharmacy 08/07/24 Alan Torres, MAKEDA [address] [place] [address] Registered Nurse Family Medicine 05/06/25 Kaylene Luo 05/06/25 documented as of this encounter
--- OUTSIDE RECORDS SUMMARY | 2025-05-18 10:03 | XMS_ITS | Encounter Summary ---
Author Organization [employer] Address 75 [facility] 7t [place] [address] Care Team Providers Care Contractor Buyer Name Role Phone Joyce Tapia MD Primary Care Provider [phone] Cristal Muhammad PharmD Unavailable [phone] Jenny Schmidt MD Primary Care Provider [phone] Alan Torres RN Unavailable [phone] Kaylene Luo Unavailable Reason for Visit * Reason Comments Med Refill Encounter Details Date Type Department Care Team (Late st Contact Info) Description 06/06/2023 Refill [facility] [address] [place], [place] [phone] Ev Lewis, ANP 230 [place] [address] Status post surgical removal of nail matrix [...] [facility] 505 [place] [address] Katherine Casper, MAKEDA 505 [place], [place] 07/29/2025 10:00 AM EST Medication Management [facility] 505 [place], [place] [phone] Cristal Muhammad, Deonte 230 [place] [address] 08/26/2025 9:00 AM EST Office Visit [facility] OPTOMETRY 267 [place] [address] Dana Fields, OD 230 [place] [address] documented as of this encounter Visit Diagnoses Diagnosis Status post surgical removal of nail matrix of toe of left foot documented in this encounter Care Teams Contractor Buyer Relationship Specialty Start Date End Date Joyce Tapia MD 230 [place] [address] PCP - General Family Medicine 06/19/12 05/01/25 Jenny Schmidt MD [address] [place] [address] PCP - General Family Medicine 05/02/25 Cristal Muhammad, BobD [address] [place] [address] Pharmacist Pharmacy 08/07/24 Alan Torres, MAKEDA [address] [place] [address] Registered Nurse Family Medicine 05/06/25 Kaylene Luo 05/06/25 documented as of this encounter
--- OUTSIDE RECORDS SUMMARY | 2025-05-18 10:03 | XMS_ITS | Encounter Summary ---
Author Organization [employer] Address 75 [facility] 7t [place] [address] Care Team Providers Care Instructional Material Director Name Role Phone Joyce Tapia MD Primary Care Provider [phone] Cristal Muhammad PharmD Unavailable [phone] Jenny Schmidt MD Primary Care Provider [phone] Alan Torres RN Unavailable [phone] Kaylene Luo Unavailable Reason for Visit * Reason Onset Date Comments Med Refill 10/25/2024 Encounter Details Date Type Department Care Team (Late st Contact Info) Description 10/25/2024 Refill [facility] 505 [place], [place] [phone] Joyce Tapia MD 505 [place], [place] [phone] Social History Tobacco Use Types Packs/Day Years [...] the past 12 months, has t he [employer] gas, oil or water company threatened to [...] Upcoming Encounters Date Type Department Care Team ([facility] st Contact Info) Description 06/04/2025 11:00 AM EST Clinical Support [facility] 505 [place] [address] Katherine Casper, RN 505 [place] [address] 07/29/2025 10:00 AM EST Medication Management [facility] 505 [place] [address] Cristal Muhammad, PharmD 230 [place] [address] 08/26/2025 9:00 AM EST Office Visit [facility] OPTOMETRY 267 [place] [address] Dana Fields, OD 230 [place] [address] documented as of this encounter Visit Diagnoses Not on filedocumented in this encounter Additional Health Concerns Assessment Noted Time PHQ-9 Depression Total Score: 7 09/15/19 25 9:02 AM EDT documented as of this encounter Care Teams Instructional Material Director Relationship Specialty Start Date End Date Joyce Tapia MD 230 [place] [address] PCP - General Family Medicine 06/19/12 05/01/25 Jenny Schmidt MD 505 [place] [address] PCP - General Family Medicine 05/02/25 Cristal Muhammad PharmD 230 [place] [address] Pharmacist Pharmacy 08/07/24 Alan Torres, MAKEDA 505 [place] [address] Registered Nurse Family Medicine 05/06/25 Kaylene Luo 05/06/25 documented as of this encounter
--- OUTSIDE RECORDS SUMMARY | 2025-05-18 10:03 | XMS_ITS | Encounter Summary ---
Author Organization [employer] Address 75 [facility] 7t [place] [address] Care Team Providers Care Data Entry Specialist Name Role Phone Joyce Tapia MD Primary Care Provider [phone] Cristal Muhammad PharmD Unavailable [phone] Jenny Schmidt MD Primary Care Provider [phone] Alan Torres RN Unavailable [phone] Kaylene Luo Unavailable Reason for Visit * Reason Onset Date Comments Med Refill 10/24/2024 Encounter Details Date Type Department Care Team (Late st Contact Info) Description 10/24/2024 Refill [facility] MEDICINE 230 [place] [address] Ayden Orellana MD 505 [place], [place] [phone] Status post surgical removal of nail matrix [...] [facility] MED & PEDS 505 [place] [address] Katherine Casper, RN 505 [place] [address] 07/29/2025 10:00 AM EST Medication Management [facility] MED [facility] PEDS 505 [place] [address] Cristal Muhammad, PharmD 230 [place] [address] 08/26/2025 9:00 AM EST Office Visit [facility] OPTOMETRY 267 [place] [address] Dana Fields, OD 230 [place] [address] documented as of this encounter Visit Diagnoses Diagnosis Status post surgical removal of nail matrix of toe of left foot documented in this encounter Additional Health Concerns Assessment Noted Time PHQ-9 Depression Total Score: 7 09/15/19 25 9:02 AM EDT documented as of this encounter Care Teams Data Entry Specialist Relationship Specialty Start Date End Date Joyce Tapia MD 230 [place] [address] PCP - General Family Medicine 06/19/12 05/01/25 Jenny Schmidt MD 505 [place] [address] PCP - General Family Medicine 05/02/25 Cristal Muhammad PharmD 230 [place] [address] Pharmacist Pharmacy 08/07/24 Alan Torres, MAKEDA 505 [place] [address] Registered Nurse Family Medicine 05/06/25 Kaylene Luo 05/06/25 documented as of this encounter
--- OUTSIDE RECORDS SUMMARY | 2025-05-18 10:04 | XMS_ITS | Encounter Summary ---
Author Organization [employer] Address 75 [facility] 7t [place] [address] Care Team Providers Care Equipment Worker Name Role Phone Joyce Tapia MD Primary Care Provider [phone] Cristal Muhammad PharmD Unavailable [phone] Jenny Schmidt MD Primary Care Provider [phone] Alan Torres RN Unavailable [phone] Kaylene Luo Unavailable Reason for Visit * Reason Comments Med Refill Encounter Details Date Type Department Care Team (Late st Contact Info) Description 06/07/2023 Refill [facility] MED & PEDS [address] [place], [place] [phone] Ev Lewis, ANP 230 [place] [address] Status post surgical removal of nail matrix [...] [facility] 505 [place] [address] Katherine Casper, MAKEDA 505 [place], [place] 07/29/2025 10:00 AM EST Medication Management [facility] MED & PEDS 505 [place], [place] [phone] Cristal Muhammad, Deonte 230 [place] [address] 08/26/2025 9:00 AM EST Office Visit [facility] OPTOMETRY [address] [place] [address] Dana Fields, OD 230 [place] [address] documented as of this encounter Visit Diagnoses Diagnosis Status post surgical removal of nail matrix of toe of left foot documented in this encounter Care Teams Equipment Worker Relationship Specialty Start Date End Date Joyce Tapia MD 230 [place] [address] PCP - General Family Medicine 06/19/12 05/01/25 Jenny Schmidt MD [address] [place] [address] PCP - General Family Medicine 05/02/25 Cristal Muhammad, BobD [address] [place] [address] Pharmacist Pharmacy 08/07/24 Alan Torres, MAKEDA [address] [place] [address] Registered Nurse Family Medicine 05/06/25 Kaylene Luo 05/06/25 documented as of this encounter
--- OUTSIDE RECORDS SUMMARY | 2025-05-18 10:05 | XMS_ITS | Encounter Summary ---
Author Organization [employer] Address 75 [facility] 7t [place] [address] Care Team Providers Care Bar Tender Name Role Phone Joyce Tapia MD Primary Care Provider [phone] Cristal Muhammad PharmD Unavailable [phone] Jenny Schmidt MD Primary Care Provider [phone] Alan Torres RN Unavailable [phone] Kaylene Luo Unavailable Reason for Visit * Reason Onset Date Comments Med Refill 08/01/2024 Encounter Details Date Type Department Care Team (Late st Contact Info) Description 08/01/[address] [facility] MEDICINE 230 [place] [address] Emerson Keith MD 505 [place], [place] [phone] Status post surgical removal of nail matrix [facility] 505 [place] [address] Katherine Casper, RN 505 [place] [address] 07/29/2025 10:00 AM EST Medication Management [facility] MED & PEDS 505 [place] [address] Cristal Muhammad, PharmD 230 [place] [address] 08/26/2025 9:00 AM EST Office Visit [facility] OPTOMETRY 267 [place] [address] Dana Fields, OD 230 [place] [address] documented as of this encounter Visit Diagnoses Diagnosis Status post surgical removal of nail matrix of toe of left foot documented in this encounter Care Teams Bar Tender Relationship Specialty Start Date End Date Joyce Tapia MD [address] [place] [address] PCP - General Family Medicine 06/19/12 05/01/25 Jenny Schmidt MD 505 [place] [address] PCP - General Family Medicine 05/02/25 Cristal Muhammad PharmD [address] [place] [address] Pharmacist Pharmacy 08/07/24 Alan Torres, MAKEDA 505 [place] [address] Registered Nurse Family Medicine 05/06/25 Kaylene Luo 05/06/25 documented as of this encounter
--- OUTSIDE RECORDS SUMMARY | 2025-05-18 10:05 | XMS_ITS | Encounter Summary ---
Author Organization [employer] Address 75 [facility] 7t [place] [address] Care Team Providers Care Global Marketing Coordinator Name Role Phone Joyce Tapia MD Primary Care Provider [phone] Cristal Muhammad PharmD Unavailable [phone] Jenny Schmidt MD Primary Care Provider [phone] Alan Torres RN Unavailable [phone] Kaylene Luo Unavailable Reason for Visit * Reason Comments Med Refill Encounter Details Date Type Department Care Team ([facility] st Contact Info) Description 10/25/2022 Refill [facility] CHC MED & PEDS 505 [place], [place] [address] Jenny Schmidt MD 505 [place], [place] [phone] Status post surgical removal of nail matrix [...] Description 06/04/2025 11:00 AM EST Clinical Support [facility] MED & PEDS 505 [place] [address] Katherine Casper, MAKEDA 505 [place] [address] 07/29/2025 10:00 AM EST Medication Management [facility] MED & PEDS 505 [place] [address] Cristal Muhammad, Deonte 230 [place] [address] 08/26/2025 9:00 AM EST Office Visit [facility] OPTOMETRY 267 [place] [address] Dana Fields, OD 230 [place] [address] documented as of this encounter Visit Diagnoses Diagnosis Status post surgical removal of nail matrix of toe of left foot documented in this encounter Care Teams Global Marketing Coordinator Relationship Specialty Start Date End Date Joyce Tapia MD 230 [place] [address] PCP - General Family Medicine 06/19/12 05/01/25 Jenny Schmidt MD [address] [place] [address] PCP - General Family Medicine 05/02/25 Cristal Muhammad, Deonte 230 [place] [address] Pharmacist Pharmacy 08/07/24 Alan Torres, MAKEDA [address] [place] [address] Registered Nurse Family Medicine 05/06/25 Kaylene Luo 05/06/25 documented as of this encounter
--- OUTSIDE RECORDS SUMMARY | 2025-05-18 10:07 | XMS_ITS | Encounter Summary ---
Author Organization [employer] Address 75 [facility] 7t [place] [address] Care Team Providers Care Dinkey Skinner Name Role Phone Joyce Tapia MD Primary Care Provider [phone] Cristal Muhammad PharmD Unavailable [phone] Jenny Schmidt MD Primary Care Provider [phone] Alan Torres RN Unavailable [phone] Kaylene Luo Unavailable Encounter Details Date Type Department Care Team (Late st Contact Info) Description 05/24/2023 Abstract [facility] MEDICINE 230 [place], [place] [phone] Zohra Benavidez Social History Tobacco Use Types [...] Department Care Team (Late Contact Info) Description 06/04/2025 11:00 AM EST Clinical Support [facility] CHC MED & PEDS 505 [place] [address] Katherine Casper, MAKEDA 505 [place] [address] 07/29/2025 10:00 AM EST Medication Management [facility] CHC MED & PEDS 505 [place] [address] Cristal Muhammad PharmD 230 [place] [address] 08/26/2025 9:00 AM EST Office Visit [facility] OPTOMETRY [address] [place] [address] Dana Fields, OD 230 [place] [address] documented as of this encounter Procedures Procedure Name Priority Date/Time Associated Diagnosis Comments COLONOSCOPY Routine 02/20/2015 documented in this encounter Results * Colonoscopy (02/20/2015) Colonoscopy Normal Normal Narrative ReemaZohra - 02/20/2015 Repeat in 10 year Historical Provider HEALTH MAINTENANCE Final Result documented in this encounter Visit Diagnoses Not on filedocumented in this encounter Care Teams Dinkey Skinner Relationship Specialty Start Date End Date Joyce Tapia MD 230 [place] [address] PCP - General Family Medicine 06/19/12 05/01/25 Jenny Schmidt MD 505 [place] [address] PCP - General Family Medicine 05/02/25 Cristal Muhammad, PharmD 230 [place] [address] Pharmacist Pharmacy 08/07/24 Alan Torres, MAKEDA 505 [place] [address] Registered Nurse Family Medicine 05/06/25 Kaylene Luo 05/06/25 documented as of this encounter
--- OUTSIDE RECORDS SUMMARY | 2025-05-18 10:07 | XMS_ITS | Encounter Summary ---
Author Organization [employer] Address 75 [facility] 7t [place] [address] Care Team Providers Care Salesman/Owner Name Role Phone Joyce Tapia MD Primary Care Provider [phone] Cristal Muhammad PharmD Unavailable [phone] Jenny Schmidt MD Primary Care Provider [phone] Alan Torres RN Unavailable [phone] Kaylene Luo Unavailable Reason for Visit * Reason Onset Date Comments Med Refill 02/28/2024 Encounter Details Date Type Department Care Team (Late st Contact Info) Description 02/28/2024 Telephone [facility] MEDICINE 230 [place] [address] Joyce Tapia MD [address] [place], [place] [phone] Med Refill Social History Tobacco Use Types [...] immediate release tablet To be sent to: [facility] [place], [place] - [address] [place] [address] documented in this encounter Plan of Treatment Upcoming Encounters Date Type Department Care Team ([facility] st Contact Info) Description 06/04/2025 11:00 AM EST Clinical Support [facility] MED & PEDS 505 [place] [address] Katherine Casper, RN 505 [place] [address] 07/29/2025 10:00 AM EST Medication Management [facility] MED & PEDS 505 [place] [address] Cristal Muhammad, PharmD 230 [place] [address] 08/26/2025 9:00 AM EST Office Visit [facility] OPTOMETRY 267 [place] [address] Dana Fields, OD 230 [place] [address] documented as of this encounter Visit Diagnoses Not on filedocumented in this encounter Care Teams Salesman/Owner Relationship Specialty Start Date End Date Joyce Tapia MD 230 [place] [address] PCP - General Family Medicine 06/19/12 05/01/25 Jenny Schmidt MD 505 [place] [address] PCP - General Family Medicine 05/02/25 Cristal Muhammad PharmD 230 [place] [address] Pharmacist Pharmacy 08/07/24 Alan Torres, MAKEDA 505 [place] [address] Registered Nurse Family Medicine 05/06/25 Kaylene Luo 05/06/25 documented as of this encounter
--- OUTSIDE RECORDS SUMMARY | 2025-05-18 10:08 | XMS_ITS | Encounter Summary ---
Author Organization [employer] Address 75 [facility] 7t [place] [address] Care Team Providers Care Vessel Slag Worker Name Role Phone Joyce Tapia MD Primary Care Provider [phone] Cristal Muhammad PharmD Unavailable [phone] Jenny Schmidt MD Primary Care Provider [phone] Alan Torres RN Unavailable [phone] Kaylene Luo Unavailable Reason for Visit * Reason Onset Date Comments Med Refill 09/17/2024 Encounter Details Date Type Department Care Team (Late st Contact Info) Description 09/17/2024 Refill [facility] MED & PEDS 505 [place], [place] [phone] Emerson Keith MD 505 [place], [place] [phone] Status post surgical removal of nail matrix [...] Upcoming Encounters Date Type Department Care Team ([facility] [place] Contact Info) Description 06/04/2025 11:00 AM EST Clinical Support [facility] MED & PEDS 505 [place] [address] Katherine Casper, RN 505 [place] [address] 07/29/2025 10:00 AM EST Medication Management [facility] MED & PEDS 505 [place] [address] Cristal Muhammad, PharmD 230 [place] [address] 08/26/2025 9:00 AM EST Office Visit [facility] OPTOMETRY [address] [place] [address] Daan Fields, OD 230 [place] [address] documented as of this encounter Visit Diagnoses Diagnosis Status post surgical removal of nail matrix of toe of left foot documented in this encounter Additional Health Concerns Assessment Noted Time PHQ-9 Depression Total Score: 7 09/15/19 25 9:02 AM EDT documented as of this encounter Care Teams Vessel Slag Worker Relationship Specialty Start Date End Date Joyce Tapia MD 230 [place] [address] PCP - General Family Medicine 06/19/12 05/01/25 Jenny Schmidt MD 505 [place] [address] PCP - General Family Medicine 05/02/25 Cristal Muhammad PharmD 230 [place] [address] Pharmacist Pharmacy 08/07/24 Alan Torres, MAKEDA 505 [place] [address] Registered Nurse Family Medicine 05/06/25 Kaylene Luo 05/06/25 documented as of this encounter
--- OUTSIDE RECORDS SUMMARY | 2025-05-18 10:08 | XMS_ITS | Encounter Summary ---
Author Organization [employer] Address 75 [facility] 7t [place] [address] Care Team Providers Care Distribution Operation Supervisor Name Role Phone Joyce Tapia MD Primary Care Provider [phone] Cristal Muhammad PharmD Unavailable [phone] Jenny Schmidt MD Primary Care Provider [phone] Alan Torres RN Unavailable [phone] Kaylene Luo Unavailable Reason for Visit * Reason Comments Med Refill Encounter Details Date Type Department Care Team (Late st Contact Info) Description 06/12/2023 Refill [facility] MED & PEDS 505 [place], [place] [phone] Christy Ray MD 505 [place], [place] [phone] Muscle spasm Social History Tobacco Use Types [...] Support [facility] 505 [place] [address] Katherine Casper, MAKEDA 505 [place], [place] 07/29/2025 10:00 AM EST Medication Management [facility] MED & PEDS 505 [place], [place] [phone] Cristal Muhammad, PharmShante 230 [place] [address] 08/26/2025 9:00 AM EST Office Visit [facility] OPTOMETRY [address] [place] [address] Dana Fields, OD 230 [place] [address] documented as of this encounter Visit Diagnoses Diagnosis Muscle spasm Spasm of muscle documented in this encounter Care Teams Distribution Operation Supervisor Relationship Specialty Start Date End Date Joyce Tapia MD 230 [place] [address] PCP - General Family Medicine 06/19/12 05/01/25 Jenny Schmidt MD 505 [place], [place] PCP - General Family Medicine 05/02/25 Cristal Muhammad, BobD 230 [place] [address] Pharmacist Pharmacy 08/07/24 Alan Torres, MAKEDA 505 [place], [place] Registered Nurse Family Medicine 05/06/25 Kaylene Luo 05/06/25 documented as of this encounter
--- OUTSIDE RECORDS SUMMARY | 2025-05-18 10:08 | XMS_ITS | Encounter Summary ---
Author Organization [employer] Address 75 [facility] 7t [place] [address] Care Team Providers Care Order Entry Representative Name Role Phone Joyce Tapia MD Primary Care Provider [phone] Cristal Muhammad PharmD Unavailable [phone] Jenny Schmidt MD Primary Care Provider [phone] Alan Torres RN Unavailable [phone] Kaylene Luo Unavailable Encounter Details Date Type Department Care Team (Late Contact Info) Description 09/27/2022 Orders Only [facility] MEDICINE 230 [place], [place] [phone] Comfort Estrada LPN Social History Tobacco Use [...] Care Team ([facility] Contact Info) Description 06/04/2025 11:00 AM EST Clinical Support [facility] MED & PEDS 505 [place] [address] Katherine Casper, MAKEDA 505 [place], [place] 07/29/2025 10:00 AM EST Medication Management [facility] MED & PEDS 505 [place], [place] [phone] Cristal Muhammad, Deonte 230 [place] [address] 08/26/2025 9:00 AM EST Office Visit [facility] OPTOMETRY [address] [place] [address] Dana Fields, OD 230 [place] [address] documented as of this encounter Visit Diagnoses Not on filedocumented in this encounter Care Teams Order Entry Representative Relationship Specialty Start Date End Date Joyce Tapia MD [address] [place] [address] PCP - General Family Medicine 06/19/12 05/01/25 Jenny Schmidt MD 505 [place], [place] PCP - General Family Medicine 05/02/25 Cristal Muhammad, PharmD 230 [place] [address] Pharmacist Pharmacy 08/07/24 Alan Torres, MAKEDA 505 [place], [place] Registered Nurse Family Medicine 05/06/25 Kaylene Luo 05/06/25 documented as of this encounter
--- OUTSIDE RECORDS SUMMARY | 2025-05-18 10:08 | XMS_ITS | Encounter Summary ---
Author Organization [employer] Address 75 [facility] 7t [place] [address] Care Team Providers Care Paper Coating Supervisor Name Role Phone Joyce Tapia MD Primary Care Provider [phone] Cristal Muhammad PharmD Unavailable [phone] Jenny Schmidt MD Primary Care Provider [phone] Alan Torres RN Unavailable [phone] Kaylene Luo Unavailable Encounter Details Date Type Department Care Team ([facility] st Contact Info) Description 10/26/2022 Orders Only [facility] CHC MED & PEDS 505 [place], [place] [phone] Emerson Keith MD 505 [place], [place] [phone] Social History Tobacco Use Types Packs/Day Years [...] [facility] MED & PEDS 505 [place] [address] Katherine Casper, MAKEDA 505 [place], [place] 07/29/2025 10:00 AM EST Medication Management [facility] MED & PEDS 505 [place] [address] Cristal Muhammad, PharmD 230 [place] [address] 08/26/2025 9:00 AM EST Office Visit [facility] OPTOMETRY [address] [place] [address] Donnie, Dana, OD 230 [place] [address] documented as of this encounter Visit Diagnoses Not on filedocumented in this encounter Care Teams Paper Coating Supervisor Relationship Specialty Start Date End Date Joyce Tapia MD 230 [place] [address] PCP - General Family Medicine 06/19/12 05/01/25 Jenny Schmidt MD 505 [place], [place] PCP - General Family Medicine 05/02/25 Cristal Muhammad, PharmD 230 [place] [address] Pharmacist Pharmacy 08/07/24 Alan Torres, MAKEDA [address] [place], [place] Registered Nurse Family Medicine 05/06/25 Kaylene Luo 05/06/25 documented as of this encounter
--- OUTSIDE RECORDS SUMMARY | 2025-05-18 10:08 | XMS_ITS | Encounter Summary ---
Author Organization [employer] Address 75 [facility] 7t [place] [address] Care Team Providers Care Hair Preparer Name Role Phone Joyce Tapia MD Primary Care Provider [phone] Cristal Muhammad PharmD Unavailable [phone] Jenny Schmidt MD Primary Care Provider [phone] Alan Torres RN Unavailable [phone] Kaylene Luo Unavailable Reason for Visit * Reason Onset Date Comments Med Refill 05/30/2023 Encounter Details Date Type Department Care Team (Late st Contact Info) Description 05/30/2023 Telephone [facility] MEDICINE 230 [place] [address] Joyce Tapia MD [address] [place], [place] [phone] Med Refill Social History Tobacco Use Types [...] oxyCODONE (Roxicodone) 5 MG immediate release tablet [facility] - [place], [place] - [address] [place] [address] documented in this encounter Plan of Treatment Upcoming Encounters Date Type Department Care Team (Late st Contact Info) Description 06/04/2025 11:00 AM EST Clinical Support [facility] MED & PEDS 505 [place] [address] Katherine Casper RN 505 [place], [place] 07/29/2025 10:00 AM EST Medication Management [facility] MED & PEDS 505 [place], [place] [phone] Cristal Muhammad PharmD 230 [place] [address] 08/26/2025 9:00 AM EST Office Visit [facility] OPTOMETRY [address] [place] [address] Dana Fields, OD 230 [place] [address] documented as of this encounter Visit Diagnoses Not on filedocumented in this encounter Care Teams Hair Preparer Relationship Specialty Start Date End Date Joyce Tapia MD 230 [place] [address] PCP - General Family Medicine 06/19/12 05/01/25 Jenny Schmidt MD 505 [place] [address] PCP - General Family Medicine 05/02/25 Cristal Muhammad PharmD 230 [place] [address] Pharmacist Pharmacy 08/07/24 Alan Torres, RN [address] [place] [address] Registered Nurse Family Medicine 05/06/25 Kaylene Luo 05/06/25 documented as of this encounter
--- OUTSIDE RECORDS SUMMARY | 2025-05-18 10:08 | XMS_ITS | Encounter Summary ---
Author Organization [employer] Address 75 [facility] 7t [place] [address] Care Team Providers Care Automotive Tire Tester Name Role Phone Joyce Tapia MD Primary Care Provider [phone] Cristal Muhammad PharmD Unavailable [phone] Jenny Schmidt MD Primary Care Provider [phone] Alan Torres RN Unavailable [phone] Kaylene Luo Unavailable Reason for Visit * Reason Onset Date Comments Med Refill 06/28/2023 Encounter Details Date Type Department Care Team (Late st Contact Info) Description 06/28/2023 Telephone [facility] MEDICINE 230 [place] [address] Joyce Tapia MD [address] [place], [place] [phone] Med Refill Social History Tobacco Use Types [...] to: [facility] - [place], [place] - [address] [place] [address] documented in this encounter Plan of Treatment Upcoming Encounters Date Type Department Care Team ([facility] st Contact Info) Description 06/04/2025 11:00 AM EST Clinical Support [facility] MED & PEDS 505 [place] [address] Katherine Casper, MAKEDA 505 [place] [address] 07/29/2025 10:00 AM EST Medication Management [facility] MED & PEDS 505 [place] [address] Cristal Muhammad PharmD 230 [place] [address] 08/26/2025 9:00 AM EST Office Visit [facility] OPTOMETRY [address] [place] [address] Dana Fields, OD 230 [place] [address] documented as of this encounter Visit Diagnoses Not on filedocumented in this encounter Care Teams Automotive Tire Tester Relationship Specialty Start Date End Date Joyce Tapia MD 230 [place] [address] PCP - General Family Medicine 06/19/12 05/01/25 Jenny Schmidt MD 505 [place] [address] PCP - General Family Medicine 05/02/25 Cristal Muhammad PharmD 230 [place] [address] Pharmacist Pharmacy 08/07/24 Alan Torres, RN [address] [place] [address] Registered Nurse Family Medicine 05/06/25 Kaylene Luo 05/06/25 documented as of this encounter
--- OUTSIDE RECORDS SUMMARY | 2025-05-18 10:09 | XMS_ITS | Encounter Summary ---
Author Organization [employer] Address 75 [facility] 7t [place] [address] Care Team Providers Care Hand Tube Bender Name Role Phone Joyce Tapia MD Primary Care Provider [phone] Cristal Muhammad PharmD Unavailable [phone] Jenny Schmidt MD Primary Care Provider [phone] Alan Torres RN Unavailable [phone] Kaylene Luo Unavailable Reason for Visit * Reason Onset Date Comments Med Refill 12/02/2024 Encounter Details Date Type Department Care Team (Late st Contact Info) Description 12/02/2024 Refill [facility] MEDICINE 230 [place] [address] Joyce Tapia MD [address] [place], [place] [phone] Status post surgical removal of nail matrix [...] Description 06/04/2025 11:00 AM EST Clinical Support [facility] MED & PEDS 505 [place] [address] Katherine Casper, RN 505 [place] [address] 07/29/2025 10:00 AM EST Medication Management [facility] MED & PEDS 505 [place] [address] Cristal Muhammad, PharmD 230 [place] [address] 08/26/2025 9:00 AM EST Office Visit [facility] OPTOMETRY [address] [place] [address] Dana Fields, OD 230 [place] [address] documented as of this encounter Visit Diagnoses Diagnosis Status post surgical removal of nail matrix of toe of left foot documented in this encounter Additional Health Concerns Assessment Noted Time PHQ-9 Depression Total Score: 7 09/15/19 25 9:02 AM EDT documented as of this encounter Care Teams Hand Tube Bender Relationship Specialty Start Date End Date Joyce Tapia MD 230 [place] [address] PCP - General Family Medicine 06/19/12 05/01/25 Jenny Schmidt MD 505 [place] [address] PCP - General Family Medicine 05/02/25 Cristal Muhammad PharmD 230 [place] [address] Pharmacist Pharmacy 08/07/24 Alan Torres, MAKEDA 505 [place] [address] Registered Nurse Family Medicine 05/06/25 Kaylene Luo 05/06/25 documented as of this encounter
--- OUTSIDE RECORDS SUMMARY | 2025-05-18 10:09 | XMS_ITS | Encounter Summary ---
Author Organization [employer] Address 75 [facility] 7t [place] [address] Care Team Providers Care Regional Business Development Manager Name Role Phone Joyce Tapia MD Primary Care Provider [phone] Cristal Muhammad PharmD Unavailable [phone] Jenny Schmidt MD Primary Care Provider [phone] Alan Torres RN Unavailable [phone] Kaylene Luo Unavailable Reason for Visit * Reason Onset Date Comments Medication Question 12/11/2024 Encounter Details Date Type Department Care Team (Late st Contact Info) Description 12/11/2024 Telephone [facility] MEDICINE 230 [place] [address] Joyce Tapia MD [address] [place], [place] [phone] Medication Question Social History Tobacco Use Types [...] have dosage increased. Please contact pt at [phone]. documented in this encounter Plan of Treatment Upcoming Encounters Date Type Department Care Team ([facility] st Contact Info) Description 06/04/2025 11:00 AM EST Clinical Support [facility] MED & PEDS 505 [place] [address] Katherine Casper, MAKEDA 505 [place] [address] 07/29/2025 10:00 AM EST Medication Management [facility] MED & PEDS [address] [place] [address] Cristal Muhammad, PharmD 230 [place] [address] 08/26/2025 9:00 AM EST Office Visit [facility] OPTOMETRY [address] [place] [address] Donnie, Dana, OD 230 [place] [address] documented as of this encounter Visit Diagnoses Not on filedocumented in this encounter Additional Health Concerns Assessment Noted Time PHQ-9 Depression Total Score: 7 09/15/19 9:02 AM EDT documented as of this encounter Care Teams Regional Business Development Manager Relationship Specialty Start Date End Date Joyce Tapia MD 230 [place] [address] PCP - General Family Medicine 06/19/12 05/01/25 Jenny Schmidt MD 505 [place] [address] PCP - General Family Medicine 05/02/25 Cristal Muhammad, PharmD 230 [place] [address] Pharmacist Pharmacy 08/07/24 Alan Torres, MAKEDA 505 [place] [address] Registered Nurse Family Medicine 05/06/25 Kaylene Luo 05/06/25 documented as of this encounter
--- OUTSIDE RECORDS SUMMARY | 2025-05-18 10:09 | XMS_ITS | Encounter Summary ---
Author Organization [employer] Address 75 [facility] 7t [place] [address] Care Team Providers Care Optical Manufacturing Technician Name Role Phone Joyce Tapia MD Primary Care Provider [phone] Cristal Muhammad PharmD Unavailable [phone] Jenny Schmidt MD Primary Care Provider [phone] Alan Torres RN Unavailable [phone] Kaylene Luo Unavailable Reason for Visit * Reason Onset Date Comments Med Refill 12/03/2024 Encounter Details Date Type Department Care Team (Late st Contact Info) Description 12/03/2024 Telephone [facility] MEDICINE 230 [place] [address] Joyce Tapia MD [address] [place], [place] [phone] Med Refill Social History Tobacco Use Types [...] Team ([facility] st Contact Info) Description 06/04/2025 11:00 AM EST Clinical Support [facility] MED & PEDS 505 [place] [address] Katherine Casper, MAKEDA 505 [place] [address] 07/29/2025 10:00 AM EST Medication Management [facility] MED & PEDS 505 [place] [address] Cristal Muhammad PharmD 230 [place] [address] 08/26/2025 9:00 AM EST Office Visit [facility] OPTOMETRY [address] [place] [address] Donnie, Dana, OD 230 [place] [address] documented as of this encounter Visit Diagnoses Not on filedocumented in this encounter Additional Health Concerns Assessment Noted Time PHQ-9 Depression Total Score: 7 09/15/19 9:02 AM EDT documented as of this encounter Care Teams Optical Manufacturing Technician Relationship Specialty Start Date End Date Joyce Tapia MD 230 [place] [address] PCP - General Family Medicine 06/19/12 05/01/25 Jenny Schmidt MD 505 [place] [address] PCP - General Family Medicine 05/02/25 Cristal Muhammad PharmD 230 [place] [address] Pharmacist Pharmacy 08/07/24 Alan Torres, MAKEDA 505 [place] [address] Registered Nurse Family Medicine 05/06/25 Kaylene Luo 05/06/25 documented as of this encounter
--- OUTSIDE RECORDS SUMMARY | 2025-05-18 10:09 | XMS_ITS | Encounter Summary ---
Author Organization [employer] Address 75 [facility] 7t [place] [address] Care Team Providers Care Forestry Support Specialist Name Role Phone Joyce Tapia MD Primary Care Provider [phone] Cristal Muhammad PharmD Unavailable [phone] Jenny Schmidt MD Primary Care Provider [phone] Alan Torres RN Unavailable [phone] Kaylene Luo Unavailable Reason for Visit * Reason Onset Date Comments Med Refill 04/05/2024 Encounter Details Date Type Department Care Team (Late st Contact Info) Description 04/05/2024 Refill [facility] CHC MED & PEDS 505 [place], [place] [phone] Joyce Tapia MD 505 [place], [place] [phone] Status post surgical removal of nail matrix [...] Description 06/04/2025 11:00 AM EST Clinical Support [facility] MED & PEDS 505 [place] [address] Katherine Casper, RN 505 [place] [address] 07/29/2025 10:00 AM EST Medication Management [facility] MED & PEDS 505 [place] [address] Cristal Muhammad, PharmD 230 [place] [address] 08/26/2025 9:00 AM EST Office Visit [facility] OPTOMETRY [address] [place] [address] Dana Fields, OD 230 [place] [address] documented as of this encounter Visit Diagnoses Diagnosis Status post surgical removal of nail matrix of toe of left foot documented in this encounter Care Teams Forestry Support Specialist Relationship Specialty Start Date End Date Joyce Tapia MD 230 [place] [address] PCP - General Family Medicine 06/19/12 05/01/25 Jenny Schmidt MD 505 [place] [address] PCP - General Family Medicine 05/02/25 Cristal Muhammad PharmD 230 [place] [address] Pharmacist Pharmacy 08/07/24 Alan Torres, MAKEDA 505 [place] [address] Registered Nurse Family Medicine 05/06/25 Kaylene Luo 05/06/25 documented as of this encounter
--- OUTSIDE RECORDS SUMMARY | 2025-05-18 10:10 | XMS_ITS | Encounter Summary ---
Author Organization [employer] Address 75 [facility] 7t [place] [address] Care Team Providers Care Loom Changeover Operator Name Role Phone Cristal Muhammad PharmD Unavailable [phone] Jenny Schmidt MD Primary Care Provider [phone] Alan Torres RN Unavailable [phone] Kaylene Luo Unavailable Reason for Visit * Reason Comments Med Refill Encounter Details Date Type Department Care Team ([facility] Contact Info) Description 05/14/2025 Refill [facility] CHC MED & PEDS 505 [place], [place] [phone] Joyce Tapia MD 505 [place], [place] [phone] Pain Social History Tobacco Use Types Packs/Day [...] the past 12 months, has t he [employer], gas, oil or water company threatened to [...] Description 06/04/2025 11:00 AM EST Clinical Support [facility] MED & PEDS 505 [place] [address] Katherine Casper, RN 505 [place] [address] 07/29/2025 10:00 AM EST Medication Management [facility] MED & PEDS 505 [place] [address] Cristal Muhammad, PharmD 230 [place] [address] 08/26/2025 9:00 AM EST Office Visit [facility] OPTOMETRY [address] [place] [address] Dana Fields, OD 230 [place] [address] documented as of this encounter Visit Diagnoses Diagnosis Pain Generalized pain documented in this encounter Additional Health Concerns Assessment Noted Time PHQ-9 Depression Total Score: 7 09/15/19 25 9:02 AM EDT documented as of this encounter Care Teams Loom Changeover Operator Relationship Specialty Start Date End Date Jenny Schmidt MD 505 [place] [address] PCP - General Family Medicine 05/02/25 Cristal Muhammad PharmD 230 [place] [address] Pharmacist Pharmacy 08/07/24 Alan Torres, MAKEDA 505 [place] [address] Registered Nurse Family Medicine 05/06/25 Kaylene Luo 05/06/25 documented as of this encounter
--- OUTSIDE RECORDS SUMMARY | 2025-05-18 10:10 | XMS_ITS | Encounter Summary ---
Author Organization [employer] Address 75 [facility] 7t [place] [address] Care Team Providers Care Pole Cutter Name Role Phone Cristal Muhammad PharmD Unavailable [phone] Jenny Schmidt MD Primary Care Provider [phone] Alan Torres RN Unavailable [phone] Kaylene Luo Unavailable Reason for Visit * Reason Onset Date Comments Med Refill 05/15/2025 Encounter Details Date Type Department Care Team ([facility] Contact Info) Description 05/15/2025 Refill [facility] CHC MED & PEDS 505 [place], [place] [phone] Joyce Tapia MD 505 [place], [place] [phone] Pain Social History Tobacco Use Types Packs/Day [...] Encounters Date Type Department Care Team ([facility] st Contact Info) Description 06/04/2025 11:00 AM EST Clinical Support [facility] MED & PEDS 505 [place] [address] Katherine Casper, RN 505 [place] [address] 07/29/2025 10:00 AM EST Medication Management [facility] MED & PEDS 505 [place] [address] Cristal Muhammad, PharmD 230 [place] [address] 08/26/2025 9:00 AM EST Office Visit [facility] OPTOMETRY [address] [place] [address] Dana Fields, OD 230 [place] [address] documented as of this encounter Visit Diagnoses Diagnosis Pain Generalized pain documented in this encounter Additional Health Concerns Assessment Noted Time PHQ-9 Depression Total Score: 7 09/15/19 25 9:02 AM EDT documented as of this encounter Care Teams Pole Cutter Relationship Specialty Start Date End Date Jenny Schmidt MD 505 [place] [address] PCP - General Family Medicine 05/02/25 Cristal Muhammad PharmD 230 [place] [address] Pharmacist Pharmacy 08/07/24 Alan Torres, MAKEDA 505 [place] [address] Registered Nurse Family Medicine 05/06/25 Kaylene Luo 05/06/25 documented as of this encounter
--- OUTSIDE RECORDS SUMMARY | 2025-05-18 10:10 | XMS_ITS | Encounter Summary ---
Author Organization [employer] Address 75 [facility] 7t [place] [address] Care Team Providers Care Ged Tutor Name Role Phone Cristal Muhammad PharmD Unavailable [phone] Jenny Schmidt MD Primary Care Provider [phone] Alan Torres RN Unavailable [phone] Kaylene Luo Unavailable Reason for Visit * Reason Comments Med Refill Encounter Details Date Type Department Care Team ([facility] st Contact Info) Description 05/13/2025 Refill [facility] CH[facility] MED & PEDS 505 [place], [place] [phone] Ayden Orellana MD 505 [place], [place] [phone] Hidradenitis suppurativa Social History Tobacco Use Types Packs/Day Years [...] the past 12 months, has t he [email or web address], gas, oil or water company threatened to [...] Description 06/04/2025 11:00 AM EST Clinical Support [facility] MED & PEDS 505 [place] [address] Katherine Casper, RN 505 [place] [address] 07/29/2025 10:00 AM EST Medication Management [facility] MED & PEDS 505 [place] [address] Cristal Muhammad, PharmD 230 [place] [address] 08/26/2025 9:00 AM EST Office Visit [facility] OPTOMETRY [address] [place] [address] Dana Fields, OD 230 [place] [address] documented as of this encounter Visit Diagnoses Diagnosis Hidradenitis suppurativa Hidradenitis documented in this encounter Additional Health Concerns Assessment Noted Time PHQ-9 Depression Total Score: 7 09/15/19 25 9:02 AM EDT documented as of this encounter Care Teams Ged Tutor Relationship Specialty Start Date End Date Jenny Schmidt MD 505 [place] [address] PCP - General Family Medicine 05/02/25 Cristal Muhammad, BobD 230 [place] [address] Pharmacist Pharmacy 08/07/24 Alan Torres, MAKEDA 505 [place] [address] Registered Nurse Family Medicine 05/06/25 Kaylene Luo 05/06/25 documented as of this encounter
--- OUTSIDE RECORDS SUMMARY | 2025-05-18 10:12 | XMS_ITS | Encounter Summary ---
Author Organization [employer] Address [address] [facility] 7t [place] [address] Care Team Providers Care Hotel Maintenance Technician Name Role Phone Joyce Tapia MD Primary Care Provider [phone] Cristal Muhammad PharmD Unavailable [phone] Jenny Schmidt MD Primary Care Provider [phone] Alan Torres RN Unavailable [phone] Kaylene Luo Unavailable Reason for Visit * Reason Comments Med Refill Encounter Details Date Type Department Care Team (Late st Contact Info) Description 12/17/2024 Refill [facility] [address] [place] [address] Kassi Johnston FNP [address] [place] [address] Social History Tobacco Use Types Packs/Day Years [...] the past 12 months, has t he [employer], gas, oil or water [employer] threatened to shut off services in your [...] [facility] 505 [place] [address] Katherine Casper, RN 505 [place] [address] 07/29/2025 10:00 AM EST Medication Management [facility] MED & PED[facility] 505 [place] [address] Cristal Muhammad, PharmD 230 [place] [address] 08/26/2025 9:00 AM EST Office Visit [facility] OPTOMETRY [address] [place] [address] Dana Fields, OD 230 [place] [address] documented as of this encounter Visit Diagnoses Not on filedocumented in this encounter Additional Health Concerns Assessment Noted Time PHQ-9 Depression Total Score: 7 09/15/19 25 9:02 AM EDT documented as of this encounter Care Teams Hotel Maintenance Technician Relationship Specialty Start Date End Date Joyce Tapia MD 230 [place] [address] PCP - General Family Medicine 06/19/12 05/01/25 Jenny Schmidt MD 505 [place] [address] PCP - General Family Medicine 05/02/25 Cristal Muhammad PharmD 230 [place] [address] Pharmacist Pharmacy 08/07/24 Alan Torres, MAKEDA 505 [place] [address] Registered Nurse Family Medicine 05/06/25 Kaylene Luo 05/06/25 documented as of this encounter
--- OUTSIDE RECORDS SUMMARY | 2025-05-18 10:12 | XMS_ITS | Encounter Summary ---
Author Organization [employer] Address [address] [facility] 7t [place] [address] Care Team Providers Care E/M Engineer Name Role Phone Cristal Muhammad PharmD Unavailable [phone] Jenny Schmidt MD Primary Care Provider [phone] Alan Torres RN Unavailable [phone] Kaylene Luo Unavailable Reason for Visit * Reason Comments Med Refill Encounter Details Date Type Department Care Team (Late st Contact Info) Description 05/06/2025 Refill [facility] MED & PEDS [address] [place], [place] [phone] Joyce Tapia MD 505 [place], [place] [phone] Status post surgical removal of nail matrix [...] the past 12 months, has t he [employer], gas, oil or water company threatened to [...] Description 06/04/2025 11:00 AM EST Clinical Support [facility] MED & PEDS [address] [place] [address] Katherine Casper, RN [address] [place] [address] 07/29/2025 10:00 AM EST Medication Management [facility] MED & PEDS [address] [place] [address] Cristal Muhammad, PharmD 230 [place] [address] 08/26/2025 9:00 AM EST Office Visit [facility] OPTOMETRY [address] [place] [address] aDna Fields, OD 230 [place] [address] documented as of this encounter Visit Diagnoses Diagnosis Status post surgical removal of nail matrix of toe of left foot documented in this encounter Additional Health Concerns Assessment Noted Time PHQ-9 Depression Total Score: 7 09/15/19 9:02 AM EDT documented as of this encounter Care Teams E/M Engineer Relationship Specialty Start Date End Date Jenny Schmidt MD 505 [place] [address] PCP - General Family Medicine 05/02/25 Cristal Muhammad, BobD 230 [place] [address] Pharmacist Pharmacy 08/07/24 Alan Torres, MAKEDA 505 [place] [address] Registered Nurse Family Medicine 05/06/25 Kaylene Luo 05/06/25 documented as of this encounter
--- OUTSIDE RECORDS SUMMARY | 2025-05-18 10:12 | XMS_ITS ---
Author Organization [employer] Address [address] [facility] 7t [place] [address] Care Team Providers Care Neurodiagnostic Tech Name Role Phone Cristal Muhammad PharmD Unavailable [phone] Jenny Schmidt MD Primary Care Provider [phone] Alan Torres RN Unavailable [phone] Kaylene Luo Unavailable CHW Complex Status:Outreach In Progress (Enrolling) Start date:05/06/2025 Enrollment reason:ADT Feed Overview ED- [place] [facility] [place]. Case Team Name Relationship Phone Kaylene Luo(Responsible Staff) [phone] Continued Care and Services Coordination
--- OUTSIDE RECORDS SUMMARY | 2025-05-18 10:12 | XMS_ITS | Encounter Summary ---
Author Organization [employer] Address [address] [facility] 7t [place] [address] Care Team Providers Care Languages And Literature Instructor Name Role Phone Cristal Muhammad PharmD Unavailable [phone] Jenny Schmidt MD Primary Care Provider [phone] Alan Torres RN Unavailable [phone] Kaylene Luo Unavailable Encounter Details Date Type Department Care Team (Late st Contact Info) Description 05/08/2025 Orders Only [facility] [address] [place], [place] [phone] Provider, MD Saumya Social History Tobacco Use Types Packs/Day Years [...] Upcoming Encounters Date Type Department Care Team ([facility] st Contact Info) Description 06/04/2025 11:00 AM EST Clinical Support [facility] MED & PEDS 505 [place] [address] Katherine Casper, RN 505 [place] [address] 07/29/2025 10:00 AM EST Medication Management [facility] MED & PEDS [address] [place] [address] Cristal Muhammad, PharmD 230 [place] [address] 08/26/2025 9:00 AM EST Office Visit [facility] OPTOMETRY [address] [place] [address] Dana Fields, OD 230 [place] [address] documented as of this encounter Procedures Procedure Name Priority Date/Time Associated Diagnosis Comments DIABETES EYE EXAM Routine 05/08/2025 1:54 PM EST documented in this encounter Results * Diabetes Eye Exam (05/08/2025 1:54 PM EST) us Historical Provider HEALTH MAINTENANCE Final Result documented in this encounter Visit Diagnoses Not on filedocumented in this encounter Additional Health Concerns Assessment Noted Time PHQ-9 Depression Total Score: 7 09/15/19 25 9:02 AM EDT documented as of this encounter Care Teams Languages And Literature Instructor Relationship Specialty Start Date End Date Jenny Schmidt MD 505 [place] [address] PCP - General Family Medicine 05/02/25 Cristal Muhammad PharmD 230 [place] [address] Pharmacist Pharmacy 08/07/24 Alan Torres, MAKEDA 505 [place] [address] Registered Nurse Family Medicine 05/06/25 Kaylene Luo 05/06/25 documented as of this encounter
--- OUTSIDE RECORDS SUMMARY | 2025-05-18 10:12 | XMS_ITS | Encounter Summary ---
Author Organization [employer] Address [address] [facility] 7t [place] [address] Care Team Providers Care Elementary Art Teacher Name Role Phone Cristal Muhammad PharmD Unavailable [phone] Jenny Schmidt MD Primary Care Provider [phone] Alan Torres RN Unavailable [phone] Kaylene Luo Unavailable Encounter Details Date Type Department Care Team ([facility] st Contact Info) Description 05/08/2025 Results Follow-Up [facility] CH[facility] MED & PEDS [address] [place], [place] [phone] Jenny Schmidt MD 505 [place], [place] [phone] Diabetes Eye Exam Social History Tobacco Use Types Packs/Day Years [...] the past 12 months, has t he [employer], gas, oil or water company threatened to [...] as of this encounter Miscellaneous Notes * Result Encounter Note - Jenny Schmidt MD - 05/08/2025 2:57 PM EST Update care gap documented in this encounter Plan of Treatment Upcoming Encounters Date Type Department Care Team ([facility] st Contact Info) Description 06/04/2025 11:00 AM EST Clinical Support [facility] MED & PEDS [address] [place] [address] Katherine Casper, RN 505 [place] [address] 07/29/2025 10:00 AM EST Medication Management [facility] MED & PEDS [address] [place] [address] Cristal Muhammad, BobD 230 [place] [address] 08/26/2025 9:00 AM EST Office Visit [facility] OPTOMETRY [address] [place] [address] Dana Fields, OD [address] [place] [address] documented as of this encounter Visit Diagnoses Not on filedocumented in this encounter Additional Health Concerns Assessment Noted Time PHQ-9 Depression Total Score: 7 09/15/19 25 9:02 AM EDT documented as of this encounter Care Teams Elementary Art Teacher Relationship Specialty Start Date End Date Jenny Schmidt MD 505 [place] [address] PCP - General Family Medicine 05/02/25 Cristal Muhammad PharmD 230 [place] [address] Pharmacist Pharmacy 08/07/24 Alan Torres, MAKEDA 505 [place] [address] Registered Nurse Family Medicine 05/06/25 Kaylene Luo 05/06/25 documented as of this encounter
--- OUTSIDE RECORDS SUMMARY | 2025-05-18 10:12 | XMS_ITS | Encounter Summary ---
Author Organization [employer] Address [address] [facility] 7t [place] [address] Care Team Providers Care Registered Nurse Float Pool Name Role Phone Cristal Muhammad PharmD Unavailable [phone] Jenny Schmidt MD Primary Care Provider [phone] Alan Torres RN Unavailable [phone] Kaylene Luo Unavailable Reason for Visit * Reason Onset Date Comments Med Refill 05/15/2025 Encounter Details Date Type Department Care Team (Late st Contact Info) Description 05/15/2025 Refill [facility] CH[facility] MED & PEDS [address] [place], [place] [phone] Cristal Muhammad, PharmD 230 [place] [address] Social History Tobacco Use Types Packs/Day Years [...] the past 12 months, has t he [employer], gas, oil or water company threatened to [...] [facility] MED & PEDS [address] [place] [address] Katherine Casper, RN [address] [place] [address] 07/29/2025 10:00 AM EST Medication Management [facility] MED & PEDS [address] [place] [address] Cristal Muhammad, PharmD 230 [place] [address] 08/26/2025 9:00 AM EST Office Visit [facility] OPTOMETRY [address] [place] [address] Dana Fields, OD 230 [place] [address] documented as of this encounter Visit Diagnoses Not on filedocumented in this encounter Additional Health Concerns Assessment Noted Time PHQ-9 Depression Total Score: 7 09/15/19 25 9:02 AM EDT documented as of this encounter Care Teams Registered Nurse Float Pool Relationship Specialty Start Date End Date Jenny Schmidt MD 505 [place] [address] PCP - General Family Medicine 05/02/25 Cristal Muhammad PharmD 230 [place] [address] Pharmacist Pharmacy 08/07/24 Alan Torres, MAKEDA 505 [place] [address] Registered Nurse Family Medicine 05/06/25 Kaylene Luo 05/06/25 documented as of this encounter
--- OUTSIDE RECORDS SUMMARY | 2025-05-18 10:13 | XMS_ITS | Encounter Summary ---
Author Organization [employer] Address [address] [facility] 7t [place] [address] Care Team Providers Care Communications Clerk Name Role Phone Cristal Muhammad PharmD Unavailable [phone] Jenny Schmidt MD Primary Care Provider [phone] Alan Torres RN Unavailable [phone] Kaylene Luo Unavailable Reason for Visit * Reason Onset Date Comments Med Refill 05/05/2025 Encounter Details Date Type Department Care Team ([facility] st Contact Info) Description 05/05/2025 Refill [facility] MED & PEDS [address] [place], [place] [phone] Joyce Tapia MD 505 [place], [place] [phone] Status post surgical removal of nail matrix [facility] [address] [place] [address] Katherine Casper, RN 505 [place] [address] 07/29/2025 10:00 AM EST Medication Management [facility] MED & PEDS 505 [place] [address] Cristal Muhammad, PharmD 230 [place] [address] 08/26/2025 9:00 AM EST Office Visit [facility] OPTOMETRY [address] [place] [address] Dana Fields, OD 230 [place] [address] documented as of this encounter Visit Diagnoses Diagnosis Status post surgical removal of nail matrix of toe of left foot documented in this encounter Additional Health Concerns Assessment Noted Time PHQ-9 Depression Total Score: 7 09/15/19 25 9:02 AM EDT documented as of this encounter Care Teams Communications Clerk Relationship Specialty Start Date End Date Jenny Schmidt MD 505 [place] [address] PCP - General Family Medicine 05/02/25 Cristal Muhammad PharmD 230 [place] [address] Pharmacist Pharmacy 08/07/24 Alan Torres, MAKEDA 505 [place] [address] Registered Nurse Family Medicine 05/06/25 Kaylene Luo 05/06/25 documented as of this encounter
--- OUTSIDE RECORDS SUMMARY | 2025-05-18 10:13 | XMS_ITS ---
Author Organization [employer] Address 75 [facility] 7t [place] [address] Care Team Providers Care Screen Maker Name Role Phone Cristal Muhammad PharmD Unavailable [phone] Jenny Schmidt MD Primary Care Provider [phone] Alan Torres RN Unavailable [phone] Kaylene Luo Unavailable CM Complex Status:Outreach In Progress (Enrolling) Start date:05/06/2025 Enrollment reason:ADT Feed Overview ED- [place] [facility] [place]. Case Team Name Relationship Phone Alan Torres RN(Responsible Staff) Registered Viri agudelo [phone] Continued Care and Services Coordination
--- OUTSIDE RECORDS SUMMARY | 2025-05-18 10:13 | XMS_ITS | Encounter Summary ---
Author Organization [employer] Address [address] [facility] 7t [place] [address] Care Team Providers Care Client Services Manager Name Role Phone Joyce Tapia MD Primary Care Provider [phone] Cristal Muhammad PharmD Unavailable [phone] Jenny Schmidt MD Primary Care Provider [phone] Alan Torres RN Unavailable [phone] Kaylene Luo Unavailable Reason for Visit * Reason Onset Date Comments Med Refill 09/26/2024 Encounter Details Date Type Department Care Team (Late st Contact Info) Description 09/26/2024 Refill [facility] CH[facility] MED & PEDS [address] [place], [place] [phone] Joyce Tapia MD 505 [place], [place] [phone] Status post surgical removal of nail matrix [...] Clinical Support [facility] MED & PEDS 505 [place] [address] Katherine Casper, RN 505 [place] [address] 07/29/2025 10:00 AM EST Medication Management [facility] MED & PEDS [address] [place] [address] Cristal Muhammad, PharmD 230 [place] [address] 08/26/2025 9:00 AM EST Office Visit [facility] OPTOMETRY [address] [place] [address] Dana Fields, OD 230 [place] [address] documented as of this encounter Visit Diagnoses Diagnosis Status post surgical removal of nail matrix of toe of left foot documented in this encounter Additional Health Concerns Assessment Noted Time PHQ-9 Depression Total Score: 7 09/15/19 25 9:02 AM EDT documented as of this encounter Care Teams Client Services Manager Relationship Specialty Start Date End Date Joyce Tapia MD 230 [place] [address] PCP - General Family Medicine 06/19/12 05/01/25 Jenny Schmidt MD 505 [place] [address] PCP - General Family Medicine 05/02/25 Cristal Muhammad PharmD 230 [place] [address] Pharmacist Pharmacy 08/07/24 Alan Torres, MAKEDA 505 [place] [address] Registered Nurse Family Medicine 05/06/25 Kaylene Luo 05/06/25 documented as of this encounter
--- OUTSIDE RECORDS SUMMARY | 2025-05-18 10:14 | XMS_ITS | Encounter Summary ---
Author Organization [employer] Address [address] [facility] 7t [place] [address] Care Team Providers Care Medical Appointment Clerk Name Role Phone Joyce Tapia MD Primary Care Provider [phone] Cristal Muhammad PharmD Unavailable [phone] Jenny Schmidt MD Primary Care Provider [phone] Alan Torres RN Unavailable [phone] Kaylene Luo Unavailable Reason for Visit * Reason Onset Date Comments Med Refill 02/10/2025 Encounter Details Date Type Department Care Team (Late st Contact Info) Description 02/10/2025 Refill [facility] WALK-IN CENTER [address] [place] [phone] Myra Connors MD 230 [place], [place] [phone] Candidiasis Social History Tobacco Use Types Packs/Day [...] the past 12 months, has t he [email or web address], gas, oil or water company threatened to [...] Upcoming Encounters Date Type Department Care Team ([facility] st Contact Info) Description 06/04/2025 11:00 AM EST Clinical Support [facility] MED & PEDS 505 [place] [address] Katherine Casper, RN 505 [place] [address] 07/29/2025 10:00 AM EST Medication Management [facility] MED & PEDS 505 [place] [address] Cristal Muhammad, PharmD 230 [place] [address] 08/26/2025 9:00 AM EST Office Visit [facility] OPTOMETRY [address] [place] [address] Dana Fields, OD 230 [place] [address] documented as of this encounter Visit Diagnoses Diagnosis Candidiasis documented in this encounter Additional Health Concerns Assessment Noted Time PHQ-9 Depression Total Score: 7 09/15/19 25 9:02 AM EDT documented as of this encounter Care Teams Medical Appointment Clerk Relationship Specialty Start Date End Date Joyce Tapia MD 230 [place] [address] PCP - General Family Medicine 06/19/12 05/01/25 Jenny Schmidt MD 505 [place] [address] PCP - General Family Medicine 05/02/25 Cristal Muhammad PharmD 230 [place] [address] Pharmacist Pharmacy 08/07/24 Alan Torres, MAKEDA 505 [place] [address] Registered Nurse Family Medicine 05/06/25 Kaylene Luo 05/06/25 documented as of this encounter
--- OUTSIDE RECORDS SUMMARY | 2025-05-18 10:14 | XMS_ITS | Encounter Summary ---
Author Organization [employer] Address 75 [facility] 7t [place] [address] Care Team Providers Care Tierce Filler Name Role Phone Joyce Tapia MD Primary Care Provider Cristal Muhammad PharmD Unavailable [phone] Jenny Schmidt MD Primary Care Provider [phone] Alan Torres RN Unavailable [phone] Kaylene Luo Unavailable Reason for Visit * Reason Onset Date Comments Med Refill 06/25/2024 Encounter Details Date Type Department Care Team (Late st Contact Info) Description 06/25/[address] [facility] 230 [place] [address] Joyce Tapia MD [address] [place], [place] [phone] Status post surgical removal of nail matrix [...] [facility] MED [facility] PED[facility] [address] [place] [address] Katherine Casper, RN 505 [place] [address] 07/29/2025 10:00 AM EST Medication Management [facility] MED & PEDS 505 [place] [address] Cristal Muhammad, PharmD 230 [place] [address] 08/26/2025 9:00 AM EST Office Visit [facility] OPTOMETRY [address] [place] [address] Dana Fields, OD 230 [place] [address] documented as of this encounter Visit Diagnoses Diagnosis Status post surgical removal of nail matrix of toe of left foot documented in this encounter Care Teams Tierce Filler Relationship Specialty Start Date End Date Joyce Tapia MD 230 [place] [address] PCP - General Family Medicine 06/19/12 05/01/25 Jenny Schmidt MD 505 [place] [address] PCP - General Family Medicine 05/02/25 Cristal Muhammad PharmD 230 [place] [address] Pharmacist Pharmacy 08/07/24 Alan Torres, MAKEDA 505 [place] [address] Registered Nurse Family Medicine 05/06/25 Kaylene Luo 05/06/25 documented as of this encounter
== END 2025-05-18 09:40 | disposition home or self-care (01) ==
LOC: HO.MRI 09:39
DX: S52.501A Unspecified fracture of the lower end of right radius, initial encounter for closed fracture (principal); M25.531 Pain in right wrist; M67.431 Ganglion, right wrist
CPT/HCPCS: 73221

== ENCOUNTER → 2025-05-18 09:39 | Outpatient (BNV) | payer MEDICAID, SELFPAY | PROVIDERS: Visit Provider Radiology Diagnostic Ultrasound | DX: S52.501A Unspecified fracture of the lower end of right radius, initial encounter for closed fracture (principal); M19.031 Primary osteoarthritis, right wrist; M79.89 Other specified soft tissue disorders | CPT/HCPCS: 73221 ==

== ENCOUNTER 2025-05-23 09:01 | Emergency (ER) | payer MEDICAID, SELFPAY ==
[2025-05-23 09:02] VITALS: BP 137/63; PULSE 79; RESP 20; TEMP 36.4; O2SAT 96; BMI 28.3
--- NOTE | 2025-05-23 09:43 | ED.EXTPRO ---
HPI - Extremity Problem General Chief complaint: Extremity Injury, Upper Stated complaint: injury Time Seen by Provider: 05/23/25 09:40 Source: patient and RN notes reviewed Mode of arrival: ambulatory Limitations: no limitations History of Present Illness ED Provider: Radha Diane PA-C HPI Narrative: This is a 64-year-old female, with a past medical history of chronic right wrist pain status post ganglion cyst removal in the dorsum of the right wrist, fibromyalgia, diabetes, dyslipidemia, GERD, who presents emergency department with concerns of acute on chronic right wrist pain. Patient has been suffering from pain since she had surgery at the end of January. She has been seen at her surgeon's office, Dr. Bautista, multiple times over the last several months and had an MRI performed 5 days ago. She is already on oxycodone and gabapentin which she takes daily for chronic pain. MRI that was performed 5 days ago reveals a 7 x 7 x 6 mm cystic focus likely representing a ganglion cyst, a small cystic focus proximal to the pisotriquetral articulation could reflect a synovial recess or ganglion cyst. Mild extensor carpi radialis longus and brevis, extensor pollicis longus peritendinitis. Extensor pollicis longus signal changes could reflect artifactual signal versus mild tendinosis. She states that she can not see her orthopedic surgeon until June 19. She is already on a pain contract and states that her pain medication has not provided her with any relief. Relieving factors: nothing Exacerbating factors: nothing Associated symptoms: denies other symptoms Related Data Home Medications ?Medication ?Instructions ?Recorded ?Confirmed hydroxyzine HCl 25 mg tablet 50 mg PO BEDTIME 06/04/20 01/18/25 sertraline 100 mg tablet 1 tab PO BEDTIME 10/20/21 01/18/25 tizanidine 4 mg tablet 1 tab PO BEDTIME PRN Pain 10/20/21 01/18/25 cyanocobalamin (vitamin B-12) 1,000 mcg PO QAM 06/03/22 01/18/25 1,000 mcg tablet metformin 500 mg tablet,extended 500 mg PO BID 06/03/22 01/18/25 release 24 hr albuterol sulfate 90 mcg/actuation 2 puff inhalation Q4-6H PRN 08/25/23 01/18/25 aerosol inhaler Shortness Of Breath Or Wheezing oxycodone 5 mg tablet 5 mg PO Q6H PRN severe pain 09/27/23 01/18/25 pramipexole 0.5 mg tablet 0.5 mg PO TID 09/27/23 01/18/25 ferrous sulfate 325 mg (65 mg 325 mg PO QAM 10/27/23 01/18/25 iron) tablet varenicline tartrate 1 mg tablet 1 mg PO BID 04/24/24 01/18/25 blood sugar diagnostic (FreeStyle #10 ea 01/10/25 01/10/25 Lite Strips) esomeprazole magnesium 20 mg 20 mg PO QAM 01/10/25 01/18/25 capsule,delayed release furosemide 20 mg tablet 10 mg PO DAILY 01/10/25 01/18/25 gabapentin 100 mg capsule 100 mg PO BID 01/10/25 01/18/25 hydrochlorothiazide 12.5 mg capsule 12.5 mg PO QAM 01/10/25 01/18/25 lancets 33 gauge (Easy Touch Twist #100 ea 01/10/25 01/10/25 Lancets) ondansetron HCl 4 mg tablet 4 mg PO Q12H PRN nausea/vomiting 01/10/25 01/18/25 pantoprazole 40 mg tablet,delayed 40 mg PO QAM 01/10/25 01/18/25 release sucralfate 1 gram tablet 1 g PO QID 01/10/25 01/18/25 zolpidem 5 mg tablet 5 mg PO BEDTIME PRN insomnia 01/10/25 01/18/25 Chantix 01/31/25 01/31/25 atorvastatin 40 mg tablet 40 mg PO BEDTIME 04/17/25 blood-glucose sensor (FreeStyle #1 ea 04/17/25 Gwendolyn 3 Plus Sensor device) linagliptin 5 mg tablet (Tradjenta) 5 mg PO DAILY 04/17/25 minocycline 100 mg capsule 100 mg PO BID 04/17/25 Previous Rx's ?Medication ?Instructions ?Recorded cholecalciferol (vitamin D3) 50 50 mcg PO DAILY #30 caps 12/15/20 mcg (2,000 unit) capsule fluticasone propionate 50 2 spray intranasal DAILY #16 grams 06/21/21 mcg/actuation nasal spray,suspension (Flonase Allergy Relief) blood-glucose meter (FreeStyle #1 ea 08/21/21 Lite Meter kit) blood sugar diagnostic (FreeStyle #150 strips 03/30/22 Lite Strips) thiamine HCl (vitamin B1) 100 mg 100 mg PO DAILY #90 tabs 06/07/22 tablet lidocaine 5 % topical patch 1 patch topical DAILY #15 ea 11/10/22 (Lidoderm) cyclobenzaprine 10 mg tablet 10 mg PO Q8H #20 tabs 01/07/23 meclizine 25 mg tablet 25 mg PO TID PRN dizziness #20 tabs 02/11/23 albuterol sulfate 1.25 mg/3 mL 1.25 mg (3 mL) inhalation QID PRN 06/11/23 solution for nebulization shortness of breath or wheezing #90 mL diclofenac sodium 1 % topical gel 2 g topical BID PRN pain (scale 07/18/23 (Aleve (diclofenac)) score 4-6) #100 grams barium sulfate 2 % (w/v) oral 450 ml PO ONCE #900 mL 07/31/24 suspension (Readi-Cat 2) hydrocodone 5 mg-acetaminophen 325 1 tab PO Q6H PRN pain #15 tabs 01/31/25 mg tablet cephalexin 500 mg capsule 500 mg PO Q8H 7 days #21 caps 02/13/25 methocarbamol 750 mg tablet 1,500 mg (2 x 750 mg) PO Q8H PRN 03/04/25 pain, moderate #24 tabs methylprednisolone 4 mg tablets in 4 mg PO QAM #21 ea 03/04/25 a dose pack (Medrol (Coleman)) diclofenac sodium 1 % topical gel 4 g topical QID #50 grams 05/04/25 Allergies Allergy/AdvReac Type Severity Reaction Status Date / Time prochlorperazine (From Allergy Severe Seizure Verified 05/23/25 09:05 Compazine) sulfamethoxazole (From Allergy Severe BLISTERS- Verified 05/23/25 09:05 BACTRIM) DELGADO - NERVE ENDINGS IN HAND/ERYTHEMA MULTIFORM trimethoprim (From BACTRIM) Allergy Severe BLISTERS- Verified 05/23/25 09:05 DELGADO - NERVE ENDINGS IN HAND/ERYTHEMA MULTIFORM Penicillins Allergy Intermediate HIVES Verified 05/23/25 09:05 latex (Latex) Allergy Mild RASH Verified 05/23/25 09:05 transparent dressing AdvReac Severe Redness of Verified 05/23/25 09:05 (Tegaderm) Skin theophylline AdvReac Intermediate TACHYCARDIA Verified 05/23/25 09:05 Review of Systems Review of Systems: Constitutional : No Fever, No Chills ENT/Mouth : No sore throat, No Rhinorrhea Eyes: No Eye Pain, No Swelling, No Redness Cardiovascular : No Chest Pain, No SOB Respiratory : No Cough, No Sputum Gastrointestinal : No Nausea, No Vomiting, No Diarrhea, No abdominal Pain Genitourinary : No Dysuria, No Hematuria Musculoskeletal : + joint pain, No Myalgias, No Joint Swelling Skin : No Skin Lesions Neuro : No Weakness, No Numbness, No Headache All other systems reviewed and are negative Yes all other systems are reviewed and are negative Constitutional: Constitutional: Reports as per [facility] Past Medical History Medical History Hidradenitis suppurativa Edema Fibromyalgia Type 2 diabetes mellitus without complications Neuropathy Abscess Abdominal pain Infection of skin due to methicillin resistant Staphylococcus aureus (MRSA) Numbness of right hand COVID-19 Sebaceous cyst Cubital tunnel syndrome on left Contusion of right ankle Numbness and tingling in left hand Left hand pain Stiffness of left hand joint Emesis Overweight (BMI 25.0-29.9) Borderline diabetes Dyslipidemia Non-toxic multinodular goiter Diabetes type 2, controlled History of restless legs syndrome Anxiety Depression High cholesterol Asthma DVT (deep venous thrombosis) GERD (gastroesophageal reflux disease) Anastomotic ulcer Surgical History Hx of colonoscopy H/O removal of cyst (02/03/23) History of removal of cyst (07/28/22) Hx of cholecystectomy History of surgery History of surgery on left wrist Hx of elbow surgery History of excision of epidermal inclusion cyst (03/23/22) Hx of excision of epidermal inclusion cyst (12/25/21) History of excision of mass (10/26/21) S/P trigger finger release History of tooth extraction Hx of hand surgery Hx of esophagogastroduodenoscopy S/P gastric bypass History of hysterectomy Family History Family History Mother Diabetes mellitus CHF (congestive heart failure) Kidney failure Cervical cancer Brother No problems noted. Brother No problems noted. Social History Social History Household Members: Spouse Housing: Apartment Are you a primary career representative to a significant other at home: No Do you presently have visiting nurse or other home services: No Alcohol intake: never Patient Tobacco Use Status: Current everyday Tobacco user Tobacco use type: Cigarette Cigarette Packs Per Day: 0 Cigarettes Per Day: 2 Years Smoked: 30 Smoked in Last 30 Days: No Use of substances other than those prescribed or required for medical reasons: No Advance Directives: No Advance Directives Information Provided: Yes Advance Directives Date on File: 03/16/24 Do you have a plan to hurt others: No Plan Patient : No Current occupational status: employed 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 No acute distress. HEENT: Normal inspection CVS: Normal heart rate and rhythm. Pulses normal. Respiratory: No respiratory distress Skin: Warm, dry, no rashes noted to exposed skin. Normal skin color. Normal skin turgor. Extremities: Right wrist with ganglion cyst noted overlying the dorsal aspect. No surrounding erythema or warmth. Full ROM of the wrist without difficulty. Distal sensation circulation intact. Neuro: Oriented X 3. No motor deficit. No sensory deficit. Vital Signs: Vital Signs: Last Vital Signs Temp 97.7 F 05/23/25 11:47 Pulse 68 05/23/25 11:47 Resp 16 05/23/25 11:47 BP 119/72 05/23/25 11:47 Pulse Ox 96 05/23/25 11:47 O2 Del Method Room Air 05/23/25 11:47 BMI result Body Mass Index 28.3 Medications Administered Discontinued Medications Generic Name Dose Route Start Last Admin Trade Name Freq PRN Reason Stop Dose Admin Ketorolac Tromethamine 30 mg 05/23/25 10:13 05/23/25 10:38 Ketorolac Tromethamine 30 Mg/Ml Vial IM 05/23/25 10:14 30 mg ONCE ONE Administration Morphine Sulfate 15 mg 05/23/25 10:13 05/23/25 10:38 Morphine Sulfate Immed Release 15 Mg Tablet PO 05/23/25 10:14 15 mg ONCE ONE Administration Medical Decision Making Medical Decision Making MDM Narrative: This is a 64-year-old female who presents emergency department with concerns of right wrist pain. She has had ongoing chronic right wrist pain with the associated ganglion cyst. She had surgical intervention this year however states that she continues to have pain, and believes that the areas increasing in size. She denies any new injury or trauma. She is already on a pain contract and already takes Percocet. I discussed with patient that we can not give her any additional pain management medications. Encouraged to take Tylenol. Given morphine in the department, this provided her with good relief. She has a ride home. I reached out to the orthopedic office, they will attempt to get her in sooner. Given strict return precautions. Patient understands and agrees with plan. Patient stable for discharge. Differential Diagnosis Differential Diagnoses: The differential diagnosis associated with the presentation includes Ganglion cyst, sprain, strain, contusion, fracture Discharge Plan Discharge Clinical Impression: Chronic pain of right wrist Patient Disposition: Home, Self-Care Instructions: Pain Management (ED), Arthralgia (ED) Additional Instructions: You were seen in the emergency department due to chronic right wrist pain. Please rest or apply heat or ice the area for pain relief. Continue wearing the wrist splint. If any new or worsening symptoms occur including but not limited to worsening pain, increased redness, swelling over the area, please seek emergent care. We had contacted the orthopedic office, they will attempt to try to get you in sooner. Prescriptions: No Action cholecalciferol (vitamin D3) 50 mcg (2,000 unit) capsule 50 mcg PO DAILY Qty: 30 11RF (DME) FreeStyle Lite Strips Strip See Rx Instructions .ROUTE .COMPLEX Qty: 150 6RF Dose Instruction: USE TO TEST BLOOD SUGAR TWICE DAILY Rx Instructions: USE TO TEST BLOOD SUGAR TWICE DAILY thiamine HCl (vitamin B1) 100 mg tablet 100 mg PO DAILY Qty: 90 3RF Readi-Cat 2 2 % (w/v) suspension 450 ml PO ONCE Qty: 900 0RF Rx Instructions: Drink both bottles [address] scan hydroxyzine HCl 25 mg tablet 50 mg PO BEDTIME sertraline 100 mg tablet 1 tab PO BEDTIME tizanidine 4 mg tablet 1 tab PO BEDTIME PRN (Reason: Pain) fluticasone propionate [Flonase Allergy Relief] 50 mcg/actuation spray,suspension 2 spray intranasal DAILY Qty: 16 0RF Rx Instructions: administer into each nostril metformin 500 mg tablet extended release 24 hr 500 mg PO BID albuterol sulfate 1.25 mg/3 mL solution for nebulization 1.25 mg inhalation QID PRN (Reason: shortness of breath or wheezing) Qty: 90 0RF albuterol sulfate 90 mcg/actuation Hfa Aerosol Inhaler 2 puff INHALATION Q4-6H PRN (Reason: Shortness Of Breath Or Wheezing) lidocaine [Lidoderm] 5 % adhesive patch,medicated 1 patch topical DAILY Qty: 15 0RF Rx Instructions: leave on most painful area for up to 12 hrs cyclobenzaprine 10 mg tablet 10 mg PO Q8H Qty: 20 0RF meclizine 25 mg tablet 25 mg PO TID PRN (Reason: dizziness) Qty: 20 0RF diclofenac sodium [Aleve (diclofenac)] 1 % gel 2 g topical BID PRN (Reason: pain (scale score 4-6)) Qty: 100 0RF Rx Instructions: apply to single elbow, wrist or hand; for hand includes palm/fingers/back of hand Chantix hydrocodone-acetaminophen 5-325 mg tablet 1 tab PO Q6H PRN (Reason: pain) Qty: 15 0RF Rx Instructions: Partial Fill upon patient request. methylprednisolone [Medrol (Coleman)] 4 mg tablets,dose pack 4 mg PO QAM Qty: 21 0RF Rx Instructions: Take per package instructions methocarbamol 750 mg tablet 1,500 mg PO Q8H PRN (Reason: pain, moderate) Qty: 24 0RF diclofenac sodium 1 % gel 4 g topical QID Qty: 50 0RF Rx Instructions: apply to top of wrist (DME) blood-glucose meter [FreeStyle Lite Meter] Kit See Rx Instructions .Route Qty: 1 0RF Rx Instructions: As directed test blood sugar two times a day cyanocobalamin (vitamin B-12) 1,000 mcg tablet 1,000 mcg PO QAM oxycodone 5 mg tablet 5 mg PO Q6H PRN (Reason: severe pain) pramipexole 0.5 mg tablet 0.5 mg PO TID varenicline tartrate 1 mg tablet 1 mg PO BID cephalexin 500 mg capsule 500 mg PO Q8H 7 Days Qty: 21 0RF Tradjenta 5 mg tablet 5 mg PO DAILY atorvastatin 40 mg tablet 40 mg PO BEDTIME minocycline 100 mg capsule 100 mg PO BID (DME) FreeStyle Gwendolyn 3 Plus Sensor Device See Rx Instructions .ROUTE [id number] Qty: 1 Rx Instructions: As directed ferrous sulfate 325 mg (65 mg iron) tablet 325 mg PO QAM (DME) FreeStyle Lite Strips Strip See Rx Instructions .ROUTE TID Qty: 10 Rx Instructions: As directed pantoprazole 40 mg tablet,delayed release (DR/EC) 40 mg PO QAM zolpidem 5 mg tablet 5 mg PO BEDTIME PRN (Reason: insomnia) furosemide 20 mg tablet 10 mg PO DAILY gabapentin 100 mg capsule 100 mg PO BID (DME) lancets [Easy Touch Twist Lancets] 33 gauge misc See Rx Instructions .ROUTE TID Qty: 100 Rx Instructions: As directed sucralfate 1 gram tablet 1 g PO QID ondansetron HCl 4 mg tablet 4 mg PO Q12H PRN (Reason: nausea/vomiting) hydrochlorothiazide 12.5 mg capsule 12.5 mg PO QAM esomeprazole magnesium 20 mg capsule,delayed release(DR/EC) 20 mg PO QAM Interventions: ED Discharge Assessment Last Done: 05/23/25 11:47 Discharge Date/Time: 05/23/25 11:48 Print Language: Libyan
[2025-05-23] MEDS: Morphine Sulfate Immed Release 15 MG TABLET PO (10:38)
[2025-05-23 11:06] VITALS: BP 119/72; PULSE 68; RESP 16; TEMP 36.5; O2SAT 96
[2025-05-23 11:47] VITALS: BP 119/72; PULSE 68; RESP 16; TEMP 36.5; O2SAT 96
== END 2025-05-23 11:48 | disposition home or self-care (01) ==
PROVIDERS: Emergency Provider Emergency Medicine; PCP Family Medicine
DX: M25.531 Pain in right wrist (principal)
CPT/HCPCS: 96372; 99284; J1885

== ENCOUNTER 2025-06-08 10:08 | Outpatient (REF) | payer MEDICAID, SELFPAY ==
--- OUTSIDE RECORDS SUMMARY | 2025-06-04 11:00 | XMS_ITS | Encounter Summary ---
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 Encounter Details Date Type Department Care Team ([facility] Contact Info) Description 06/04/2025 11:00 AM EST Telemedicine [facility] CHC MED & PEDS [address] [place], [place] [phone] Katherine Casper, RN [address] [place], [place] [phone] Chronic bilateral low back pain without sciatica Social History Tobacco Use Types Packs/Day Years Used Date Smoking Tobacco: Every Day Cigarettes Passive Smoke Exposure: Never Smokeless Tobacco: Never Comments:Down to smoking 1 c igarette per day with the use of Chantix Alcohol Use Standard Drinks/Week Comments Never 0 (1 standard drink = 0.6 oz pur e alcohol) Depression Answer Date Recorded Patient Health Questionnaire-9 Score 11 05/27/2025 Patient Health Questionnaire-9 Score 11 05/27/2025 Last PHQ-9: Questionnaire Data Not on file 1 07/27/2024 Housing Stability Answer Date Recorded What is [...] things needed for daily living? No 01/04/2024 Intimate Partner Violence Answer Date R ecorded Within the last year, have y ou been afraid of your partner or ex-partner? 2 05/27/2025 Within the last year, have y ou been humiliated or emotionally abused in other ways by your partner or ex-partner? 2 Within the last year, have y ou been kicked, hit, slapped, or otherwise physically hurt by your partner or ex-partner? 2 05/27/2025 Within the last year, have y ou been raped or forced to have any kind of sexual activity by your partner or ex-partner? 2 05/27/2025 Utilities Answer Date Recorded In the past 12 months, has t he electric, gas, oil or water company threatened to shut off services in your home? No 01/04/2024 Depression Answer Date Recorded Patient Health Questionnaire-2 Score 1 05/27/2025 Internet Access Answer Date Recorded Internet Access [...] Progress Notes * Katherine Casper RN - 06/04/2025 11:00 AM EST SUBJECTIVE: Nayely Grover is a 64 y.o. 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 Tier: 3 Current Medications[1] Smoking status: Denies ETOH use: Denies Illicit substances: Denies Marijuana use: Denies, Lab Results Component Value Date POCTHC Negative 02/19/2025 POCCOCAINEUR Negative 02/19/2025 POCOPIATEUR Negative 02/19/2025 DOAUR Negative 02/19/2025 POCAMPHETAMI Negative 02/19/2025 POCBENZODIUR Negative 02/19/2025 POCBARBSCRN Negative 02/19/2025 POCMETHADOUR Negative 02/19/2025 POCBUPSCRN Negative 02/19/2025 POCTCAUR Negative 02/19/2025 POCMDMAUR Negative 02/19/2025 POCOXYCODONE Positive (A) 02/19/2025 POCPHENCYCUR Negative 02/19/2025 PROPOXUR Negative 02/19/2025 FENTANYLURIN Negative 02/19/2025 ASSESSMENT: Chronic bilateral low back pain with left-sided sciatica PLAN: Information on pain group given: Previously discussed Information on acupuncture given: Previously discussed Narcan education provided: Previously discussed Narcan prescription: active Nayely Grover will continue taking medication as prescribed and follow up at the next PULVERIZER MILL OPERATOR visit or sooner if needed. Nayely Grover has verbalized understanding of care plan. Future Appointments Date Time Provider Department Center 06/10/2025 11:15 AM Jenny Schmidt MD [facility] 07/29/2025 10:00 AM Cristal Muhammad PharmD [facility] 08/20/2025 10:00 AM Katherine Casper, RN [facility] Katherine Casper RN [1] Current Outpatient Medications: albuterol (2.5 MG/3ML) 0.083% nebulizer solution, TAKE 3 ML BY NEBULIZATION ROUTE EVERY 6 HOURS NEEDED FOR WHEEZING, Disp: 75 mL, Rfl: 2 albuterol 108 (90 Base) MCG/ACT inhaler, INHALE 2 PUFFS BY MOUTH EVERY 4 HOURS NEEDED FOR WHEEZING, Disp: 18 g, Rfl: 2 atorvastatin (Lipitor) 40 MG tablet, Take 1 tablet (40 mg) by mouth Once per day., Disp: 90 tablet,Rfl: 3 Blood Glucose Monitoring Suppl (Kin[employer]ral [employer]yle Vanduser Lite) w/Device kit, Test blood sugar as directed,Disp: 1 kit, Rfl: 0 Blood Pressure kit, Check blood pressure daily, Disp: 1 kit, Rfl: 0 clotrimazole (Lotrimin) 1 % vaginal cream, Insert one applicator per vagina at bedtime for 7 nights(Patient not taking: Reported on 05/27/2025), Disp: 45 g, Rfl: 0 clotrimazole-betamethasone (Lotrisone) cream, APPLY 1 GRAM THREE TIMES A DAY TO AFFECTED AREA NEEDED FOR ITCHING/IRRITATION (Patient not taking: Reported on 05/27/2025), Disp: , Rfl: Continuous Glucose Sensor (FreeStyle Gwendolyn 3 Plus Sensor) [facility], 1 each every 15 days., Disp: 2 each, Rfl: 11 cyanocobalamin (Vitamin B-12) 1000 MCG tablet, TAKE ONE TABLET EVERY MORNING, Disp: 90 tablet, Rfl:1 Easy Touch Lancets 33G/Twist mis, USE TO TEST BLOOD SUGAR THREE TIMES A DAY, Disp: 100 each, Rfl: 5 Elastic Bandages & Supports (Futuro Therapeutic Stocking) mis, To wear daily prior to getting out of bed, Disp: 1 each, Rfl: 0 empagliflozin (Jardiance) 25 MG, Take 1 tablet (25 mg) by mouth Once per day., Disp: 30 tablet, Rfl: 5 Ferrous Sulfate (iron) 325 (65 Fe) MG tablet, TAKE ONE TABLET EVERY MORNING, Disp: 90 tablet, Rfl: 1 FREESTYLE LITE test strip, USE TO TEST BLOOD SUGAR THREE TIMES A DAY, Disp: 100 strip, Rfl: 5 furosemide (Lasix) 20 MG tablet, Take 0.5 tablets (10 mg) by mouth Once per day., Disp: 15 tablet, Rfl: 11 gabapentin (Neurontin) 100 MG capsule, TAKE 1 CAPSULE BY MOUTH TWICE A DAY, Disp: 60 capsule, Rfl: 2 glucagon (Baqsimi Two Pack) 3 MG/DOSE nasal powder, Administer 3 mg into affected nostril(s) 1 (one) time if needed for low blood sugar., Disp: 1 each, Rfl: 11 hydrOXYzine HCl (Atarax) 25 MG tablet, take 1-2 tablet by oral route every day at bedtime, Disp: , Rfl: lidocaine (Lidoderm) 5 % patch, APPLY 1 PATCH TOPICALLY EVER DAY. REMOVE AND DISCARD PATCH WITHIN 12 HOURS OR DIRECTED BY MD., Disp: 30 patch, Rfl: 0 linaGLIPtin (Tradjenta) 5 MG tablet, Take 1 tablet (5 mg) by mouth Once per day., Disp: 90 tablet, Rfl: 1 meclizine (Antivert) 25 MG tablet, TAKE 1 TABLET BY MOUTH TWICE A DAY, Disp: 60 tablet, Rfl: 3 minocycline 100 MG capsule, TAKE 1 CAPSULE BY MOUTH TWICE A DAY, Disp: 60 capsule, Rfl: 1 naloxone (Narcan) 4 mg/0.1 mL nasal spray, Administer 1 spray (4 mg) into affected nostril(s) if needed for opioid reversal. May repeat every 2-3 minutes if needed, alternating nostrils, until medical assistance becomes available., Disp: 2 each, Rfl: 2 oxyCODONE (Roxicodone) 5 MG immediate release tablet, TAKE ONE TABLET EVERY 6 HOURS NEEDED FOR SEVERE PAIN, Disp: 30 tablet, Rfl: 0 oxyCODONE (Roxicodone) 5 MG immediate release tablet, Take 1 tablet (5 mg) by mouth every 6 (six) hours if needed for severe pain for up to 14 days., Disp: 56 tablet, Rfl: 0 pantoprazole (ProtoNix) 40 MG EC tablet, Take 1 tablet by mouth 2 times daily., Disp: , Rfl: pramipexole (Mirapex) 0.5 MG tablet, TAKE ONE TABLET THREE TIMES DAILY IN THE MORNING, EVENING AND BEDTIME, Disp: 90 tablet, Rfl: 11 sertraline (Zoloft) 100 MG tablet, TAKE ONE TABLET EVERY NIGHT AT BEDTIME, Disp: 30 tablet, Rfl: 6 sucralfate (Carafate) 1 g tablet, Take 1 tablet (1 g) by mouth before breakfast, before lunch, before evening meal, and at bedtime., Disp: 120 tablet, Rfl: 11 tiZANidine (Zanaflex) 4 MG tablet, TAKE ONE TABLET EVERY EVENING, Disp: 30 tablet, Rfl: 3 triamcinolone (Kenalog) 0.1 % cream, Apply topically if needed in the morning and at bedtime (pain and swelling)., Disp: 30 g, Rfl: 2 varenicline (Chantix) 1 MG tablet, Take 1/2 tablet by mouth daily for 3 days, then 1/2 tablet twicedaily for 4 days, then 1 tablet twice daily thereafter. Take with a full glass of water. (Patient not taking: Reported on 05/27/2025), Disp: 60 tablet, Rfl: 2 zolpidem (Ambien) 5 MG tablet, TAKE ONE TABLET EVERY NIGHT AT BEDTIME NEEDED FOR SLEEP, Disp: 28tablet, Rfl: 1 documented in this encounter Plan of Treatment Upcoming Encounters Date Type Department Care Team (Late st Contact Info) Description 06/10/2025 11:15 AM EST Office Visit [facility] MED & PEDS [address] [place] [address] Jenny Schmidt MD [address] [place] [address] 07/29/2025 10:00 AM EST Medication Management [facility] MED & PEDS [address] [place] [address] Cristal Muhammad PharmD [address] [place] [address] 08/20/2025 10:00 AM EST Clinical Support [facility] MED & PEDS [address] [place] [address] Katherine Casper RN [address] [place] [address] documented as of this encounter Goals Goal Patient Goal Type Associated Problems Recent Progress Patient-Stated? Author Help patients manage their type 2 diabetes Care Plan Help patients manage their type 2 diabetes No Katherine Casper RN Weekly blood pressure task Care Plan Weekly blood pressure task No Katherine Casper RN Help patients manage their type 2 diabetes Care Plan Help patients manage their type 2 diabetes No Katherine Casper RN Patient has chronic kidney disease Care Plan Patient has chronic kidney disease Katherine Shea RN Weekly blood pressure task Care Plan Weekly blood pressure task Katherine Shea RN Patient has chronic kidney disease Care Plan Patient has chronic kidney disease No Katherine Casper RN documented as of this encounter Visit Diagnoses Diagnosis Chronic bilateral low back pain without sciatica documented in this encounter Additional Health Concerns Active Problems Noted Date Diagnosed Date Help patients manage their type 2 diabetes 06/03 Weekly blood pressure task 06/03/2025 Help patients manage their type 2 diabetes 06/03 Patient has chronic kidney disease 06/03/2025 Weekly blood pressure task 06/03/2025 Patient has chronic kidney disease 06/03/2025 Assessment Noted Time PHQ-9 Depression Total Score: 11 025 10:25 AM EST documented as of this encounter Care Teams Guide Domestic Tour Relationship Specialty Start Date End Date Jenny Schmidt MD [address] [place] [address] PCP - General Family Medicine 05/02/25 Cristal Muhammad PharmD [address] [place] [address] Pharmacist Pharmacy 08/07/24 Alan Torres, MAKEDA [address] [place] [address] Registered Nurse Family Medicine 05/06/25 Kaylene Luo 05/06/25 documented as of this encounter
--- NOTE | ~2025-06-08 | MM_ITS ---
EXAMINATION: MM SCREENING DIGITAL BREAST TOMOSYNTHESIS, BILATERAL CLINICAL INFORMATION: Screening. Asymptomatic. COMPARISON: Mammography: Comparison is made with available priors TECHNIQUE: Digital breast mammography with tomosynthesis is performed in both the craniocaudal and mediolateral oblique views along with computer-aided detection (CAD). FINDINGS: There are scattered areas of fibroglandular density. There are no significant masses, abnormal calcifications, or other abnormalities. MM/MM tomosynthesis screening BI IMPRESSION: No mammographic evidence of malignancy. ASSESSMENT: BI-RADS Category 1: Negative RECOMMENDATION: Routine annual mammography screening. 1 year F/U This examination should not preclude the clinical evaluation of a suspicious palpable abnormality. This patient's information was entered into a reminder system with a target due date for their next mammogram. Electronically signed by: Angi Hogan DO 06/10/2025 04:19 PM TIM
--- OUTSIDE RECORDS SUMMARY | 2025-06-08 10:10 | XMS_ITS | Encounter Summary ---
Author Organization [employer] Address [address] [facility] 7t [place] [address] Care Team Providers Care Bankman Name Role Phone Joyce Tapia MD Primary Care Provider [phone] Cristal Muhammad PharmD Unavailable [phone] Jenny Schmidt MD Primary Care Provider [phone] Alan Torres RN Unavailable [phone] Kaylene Luo Unavailable Reason for Visit * Reason Onset Date Comments Med Refill 09/24/2024 Encounter Details Date Type Department Care Team (Late st Contact Info) Description 09/24/2024 Refill [facility] CHC MED & PEDS [address] [place], [place] [phone] Joyce Tapia MD [address] [place], [place] [phone] Status post surgical removal of nail matrix [...] Description 06/10/2025 11:15 AM EST Office Visit [facility] MED & PEDS [address] [place] [address] Jenny Schmidt MD [address] [place] [address] 07/29/2025 10:00 AM EST Medication Management [facility] MED & PEDS [address] [place] [address] Cristal Muhammad, BobD [address] [place] [address] 08/20/2025 10:00 AM EST Clinical Support [facility] MED & PEDS [address] [place] [address] Katherine Casper, MAKEDA [address] [place] [address] documented as of this encounter Visit Diagnoses Diagnosis Status post surgical removal of nail matrix of toe of left foot documented in this encounter Additional Health Concerns Assessment Noted Time PHQ-9 Depression Total Score: 7 09/15/19 25 9:02 AM EDT documented as of this encounter Care Teams Bankman Relationship Specialty Start Date End Date Joyce Tapia MD [address] [place] [address] PCP - General Family Medicine 06/19/12 05/01/25 Jenny Schmidt MD [address] [place] [address] PCP - General Family Medicine 05/02/25 Cristal Muhammad PharmD [address] [place] [address] Pharmacist Pharmacy 08/07/24 Alan Torres, MAKEDA [address] [place] [address] Registered Nurse Family Medicine 05/06/25 Kaylene Luo 05/06/25 documented as of this encounter
--- OUTSIDE RECORDS SUMMARY | 2025-06-08 10:10 | XMS_ITS | Encounter Summary ---
Author Organization [employer] Address [address] [facility] 7t [place] [address] Care Team Providers Care Applications Support Analyst Name Role Phone Joyce Tapia MD Primary Care Provider [phone] Cristal Muhammad PharmD Unavailable [phone] Jenny Schmidt MD Primary Care Provider [phone] Alan Torres RN Unavailable [phone] Kaylene Luo Unavailable Reason for Visit * Reason Onset Date Comments Med Refill 07/25/2024 Encounter Details Date Type Department Care Team (Late st Contact Info) Description 07/25/2024 Refill [facility] [address] [place] [address] Emerson Keith MD [address] [place], [place] [phone] Status post surgical removal of nail matrix [...] Description 06/10/2025 11:15 AM EST Office Visit [facility] MED & PEDS [address] [place] [address] Jenny Schmidt MD [address] [place] [address] 07/29/2025 10:00 AM EST Medication Management [facility] MED & PEDS [address] [place] [address] Cristal Muhammad PharmD [address] [place] [address] 08/20/2025 10:00 AM EST Clinical Support [facility] MED & PEDS [address] [place] [address] Katherine Casper, MAKEDA [address] [place] [address] documented as of this encounter Visit Diagnoses Diagnosis Status post surgical removal of nail matrix of toe of left foot documented in this encounter Care Teams Applications Support Analyst Relationship Specialty Start Date End Date Joyce Tapia MD [address] [place] [address] PCP - General Family Medicine 06/19/12 05/01/25 Jenny Schmidt MD [address] [place] [address] PCP - General Family Medicine 05/02/25 Cristal Muhammad PharmD [address] [place] [address] Pharmacist Pharmacy 08/07/24 Alan Torres, MAKEDA [address] [place] [address] Registered Nurse Family Medicine 05/06/25 Kaylene Luo 05/06/25 documented as of this encounter
--- OUTSIDE RECORDS SUMMARY | 2025-06-08 10:11 | XMS_ITS | Encounter Summary ---
Author Organization [employer] Address [address] [facility] 7t [place] [address] Care Team Providers Care Breaker Up Name Role Phone Joyce Tapia MD Primary Care Provider [phone] Cristal Muhammad PharmD Unavailable [phone] Jenny Schmidt MD Primary Care Provider [phone] Alan Torres RN Unavailable [phone] Kaylene Luo Unavailable Encounter Details Date Type Department Care Team ([facility] st Contact Info) Description 2024 Orders Only [facility] CHC MED & PEDS [address] [place], [place] [phone] Joyce Tapia MD [address] [place], [place] [phone] Social History Tobacco Use Types Packs/Day Years [...] Description 06/10/2025 11:15 AM EST Office Visit [facility] MED & PEDS [address] [place] [address] Jenny Schmidt MD [address] [place] [address] 07/29/2025 10:00 AM EST Medication Management [facility] MED & PEDS [address] [place] [address] Cristal Muhammad, PharmD [address] [place] [address] 08/20/2025 10:00 AM EST Clinical Support [facility] MED & PEDS [address] [place] [address] Katherine Casper, MAKEDA [address] [place] [address] documented as of this encounter Visit Diagnoses Not on filedocumented in this encounter Additional Health Concerns Assessment Noted Time PHQ-9 Depression Total Score: 7 09/15/19 25 9:02 AM EDT documented as of this encounter Care Teams Breaker Up Relationship Specialty Start Date End Date Joyce Tapia MD [address] [place] [address] PCP - General Family Medicine 06/19/12 05/01/25 Jenny Schmidt MD [address] [place] [address] PCP - General Family Medicine 05/02/25 Cristal Muhammad PharmD [address] [place] [address] Pharmacist Pharmacy 08/07/24 Alan Torres, MAKEDA [address] [place] [address] Registered Nurse Family Medicine 05/06/25 Kaylene Luo 05/06/25 documented as of this encounter
--- OUTSIDE RECORDS SUMMARY | 2025-06-08 10:11 | XMS_ITS | Encounter Summary ---
Author Organization [employer] Address [address] [facility] 7t [place] [address] Care Team Providers Care Damage Inside Adjuster Name Role Phone Joyce Tapia MD Primary Care Provider [phone] Cristal Muhammad PharmD Unavailable [phone] Jenny Schmidt MD Primary Care Provider [phone] Alan Torres RN Unavailable [phone] Kaylene Luo Unavailable Reason for Visit * Reason Onset Date Comments Med Refill 08/15/2024 Encounter Details Date Type Department Care Team (Late st Contact Info) Description 08/15/2024 Refill [facility] CHC MED & PEDS [address] [place], [place] [phone] Joyce Tapia MD [address] [place], [place] [phone] Status post surgical removal of nail matrix [...] Description 06/10/2025 11:15 AM EST Office Visit [facility] MED & PEDS [address] [place] [address] Jenny Schmidt MD [address] [place] [address] 07/29/2025 10:00 AM EST Medication Management [facility] MED & PEDS [address] [place] [address] Cristal Muhammad PharmD [address] [place] [address] 08/20/2025 10:00 AM EST Clinical Support [facility] MED & PEDS [address] [place] [address] Katherine Casper, MAKEDA [address] [place] [address] documented as of this encounter Visit Diagnoses Diagnosis Status post surgical removal of nail matrix of toe of left foot documented in this encounter Care Teams Damage Inside Adjuster Relationship Specialty Start Date End Date Joyce Tapia MD [address] [place] [address] PCP - General Family Medicine 06/19/12 05/01/25 Jenny Schmidt MD [address] [place] [address] PCP - General Family Medicine 05/02/25 Cristal Muhammad PharmD [address] [place] [address] Pharmacist Pharmacy 08/07/24 Alan Torres, MAKEDA [address] [place] [address] Registered Nurse Family Medicine 05/06/25 Kaylene Luo 05/06/25 documented as of this encounter
--- OUTSIDE RECORDS SUMMARY | 2025-06-08 10:11 | XMS_ITS | Encounter Summary ---
Author Organization [employer] Address [address] [facility] 7t [place] [address] Care Team Providers Care Switchbox Assembler Name Role Phone Joyce Tapia MD Primary Care Provider [phone] Cristal Muhammad PharmD Unavailable [phone] Jenny Schmidt MD Primary Care Provider [phone] Alan Torres RN Unavailable [phone] Kaylene Luo Unavailable Reason for Visit * Reason Onset Date Comments Med Refill 10/24/2023 Encounter Details Date Type Department Care Team (Late st Contact Info) Description 10/24/2023 Telephone [facility] MEDICINE [address] [place] [address] Joyce Tapia MD [address] [place], [place] [phone] Med Refill Social History Tobacco Use Types [...] be sent to: [facility] - [address] documented in this encounter Plan of Treatment Upcoming Encounters Date Type Department Care Team ([facility] st Contact Info) Description 06/10/2025 11:15 AM EST Office Visit [facility] MED & PEDS [address] [place] [address] Jenny Schmidt MD [address] [place], [place] 07/29/2025 10:00 AM EST Medication Management [facility] MED & PEDS [address] [place], [place] [phone] Cristal Muhammad PharmD [address] [place] [address] 08/20/2025 10:00 AM EST Clinical Support [facility] MED & PEDS [address] [place] [address] Katherine Casper RN [address] [place], [place] documented as of this encounter Visit Diagnoses Not on filedocumented in this encounter Care Teams Switchbox Assembler Relationship Specialty Start Date End Date Joyce Tapia MD [address] [place] [address] PCP - General Family Medicine 06/19/12 05/01/25 Jenny Schmidt MD [address] [place], [place] PCP - General Family Medicine 05/02/25 Cristal Muhammad PharmD [address] [place] [address] Pharmacist Pharmacy 2/4/25 Alan Torres, RN [address] [place] [address] Registered Nurse Family Medicine 05/06/25 Kaylene Luo 05/06/25 documented as of this encounter
--- OUTSIDE RECORDS SUMMARY | 2025-06-08 10:11 | XMS_ITS | Encounter Summary ---
Author Organization [employer] Address [address] [facility] 7t [place] [address] Care Team Providers Care Vacuum Worker Name Role Phone Joyce Tapia MD Primary Care Provider [phone] Cristal Muhammad PharmD Unavailable [phone] Jenny Schmidt MD Primary Care Provider [phone] Alan Torres RN Unavailable [phone] Kaylene Luo Unavailable Reason for Visit * Reason Onset Date Comments Med Refill 09/05/2024 Encounter Details Date Type Department Care Team (Late st Contact Info) Description 09/05/2024 Refill [facility] CHC MED & PEDS [address] [place], [place] [phone] Joyce Tapia MD [address] [place], [place] [phone] Status post surgical removal of nail matrix [...] Description 06/10/2025 11:15 AM EST Office Visit [facility] MED & PEDS [address] [place] [address] Jenny Schmidt MD [address] [place] [address] 07/29/2025 10:00 AM EST Medication Management [facility] MED & PEDS [address] [place] [address] Cristal Muhammad PharmD [address] [place] [address] 08/20/2025 10:00 AM EST Clinical Support [facility] MED & PEDS [address] [place] [address] Katherine Casper, MAKEDA [address] [place] [address] documented as of this encounter Visit Diagnoses Diagnosis Status post surgical removal of nail matrix of toe of left foot documented in this encounter Care Teams Vacuum Worker Relationship Specialty Start Date End Date Joyce Tapia MD [address] [place] [address] PCP - General Family Medicine 06/19/12 05/01/25 Jenny Schmidt MD [address] [place] [address] PCP - General Family Medicine 05/02/25 Cristal Muhammad PharmD [address] [place] [address] Pharmacist Pharmacy 08/07/24 Alan Torres, MAKEDA [address] [place] [address] Registered Nurse Family Medicine 05/06/25 Kaylene Luo 05/06/25 documented as of this encounter
--- OUTSIDE RECORDS SUMMARY | 2025-06-08 10:11 | XMS_ITS | Encounter Summary ---
Author Organization [employer] Address [address] [facility] [address] 7t [place] [address] [address] Team [address] Care Drive Man Name Role Phone Cristal Muhammad PharmD Unavailable [phone] Jenny Schmidt MD Primary Care Provider [phone] Alan Torres RN Unavailable [phone] Kaylene Luo Unavailable Encounter Details Date Type Department Care Team (Latest Contact Info) Description 06/04/2025 Travel Social History Tobacco Use Types Packs/Day [...] [facility] st Contact Info) Description 06/10/2025 11:15 AM EST Office Visit [facility] MED & PEDS [address] [place] [address] Jenny Schmidt MD 505 [place] [address] 07/29/2025 10:00 AM EST Medication Management [facility] 505 [place] [address] Cristal Muhammad, PharmD 230 [place] [address] 08/20/2025 10:00 AM EST Clinical Support [facility] MED & PEDS 505 [place] [address] Katherine Casper RN 505 [place] [address] documented as of this encounter Goals Goal Patient Goal Type Associated Problems Recent Progress Patient-Stated? Author Help patients manage their type 2 diabetes Care Plan Help patients manage their type 2 diabetes Katherine Shea RN Weekly blood pressure task Care Plan Weekly blood pressure task Katherine Shea RN Help patients manage their type 2 diabetes Care Plan Help patients manage their type 2 diabetes Katherine Shea RN Patient has chronic kidney disease Care Plan Patient has chronic kidney disease Katherine Shea RN Weekly blood pressure task Care Plan Weekly blood pressure task Katherine Shea RN Patient has chronic kidney disease Care Plan Patient has chronic kidney disease No Katherine Casper RN documented as of this encounter Visit Diagnoses Not on filedocumented in this encounter Additional Health Concerns Active [...] documented as of this encounter Care Teams Drive Man Relationship Specialty Start Date End Date Jenny Schmidt MD 505 [place] [address] PCP - General Family Medicine 05/02/25 Cristal Muhammad PharmD 230 [place] [address] Pharmacist Pharmacy 08/07/24 Alan Torres, MAKEDA 505 [place] [address] Registered Nurse Family Medicine 05/06/25 Kaylene Luo 05/06/25 documented as of this encounter
--- OUTSIDE RECORDS SUMMARY | 2025-06-08 10:11 | XMS_ITS | Encounter Summary ---
Author Organization [employer] Address [address] [facility] 7t [place] [address] Care Team Providers Care Superintendent Oil Field Drilling Name Role Phone Joyce Tapia MD Primary Care Provider [phone] Cristal Muhammad PharmD Unavailable [phone] Jenny Schmidt MD Primary Care Provider [phone] Alan Torres RN Unavailable [phone] Kaylene Luo Unavailable Reason for Visit * Reason Comments Med Refill Encounter Details Date Type Department Care Team (Late st Contact Info) Description 11/04/2023 Refill [facility] MED & PEDS 505 [place], [place] [phone] Joyce Tapia MD 505 [place], [place] [phone] Status post surgical removal of nail matrix [...] Description 06/10/2025 11:15 AM EST Office Visit [facility] MED & PEDS [address] [place] [address] Jenny Schmidt MD 505 [place], [place] 07/29/2025 10:00 AM EST Medication Management [facility] MED & PEDS [address] [place], [place] [phone] Cristal Muhammad PharmD 230 [place] [address] 08/20/2025 10:00 AM EST Clinical Support [facility] MED & PEDS [address] [place], [place] [phone] Katherine Casper RN 505 [place], [place] documented as of this encounter Visit Diagnoses Diagnosis Status post surgical removal of nail matrix of toe of left foot documented in this encounter Care Teams Superintendent Oil Field Drilling Relationship Specialty Start Date End Date Joyce Tapia MD 230 [place] [address] PCP - General Family Medicine 06/19/12 05/01/25 Jenny Schmidt MD [address] [place] [address] PCP - General Family Medicine 05/02/25 Cristal Muhammad PharmD [address] [place] [address] Pharmacist Pharmacy 08/07/24 Alan Torres, MAKEDA [address] [place] [address] Registered Nurse Family Medicine 05/06/25 Kaylene Luo 05/06/25 documented as of this encounter
--- OUTSIDE RECORDS SUMMARY | 2025-06-08 10:11 | XMS_ITS | Encounter Summary ---
Author Organization [employer] Address [address] [facility] 7t [place] [address] Care Team Providers Care Radiography Technician Name Role Phone Cristal Muhammad PharmD Unavailable [phone] Jenny Schmidt MD Primary Care Provider [phone] Alan Torres RN Unavailable [phone] Kaylene Luo Unavailable Encounter Details Date Type Department Care Team ([facility] st Contact Info) Description 05/28/2025 Patient Outreach [facility] MEDICINE 230 [place] [address] Jenny Schmidt MD [address] [place], [place] [phone] Social History Tobacco Use Types Packs/Day Years [...] the past 12 months, has t he [facility], gas, oil or water [employer] threatened to shut off services in your [...] Upcoming Encounters Date Type Department Care Team ([facility] st Contact Info) Description 06/10/2025 11:15 AM EST Office [facility] 505 [place] [address] Jenny Schmidt MD 505 [place] [address] 07/29/2025 10:00 AM EST Medication Management [facility] MED [facility]ED[facility] 505 [place] [address] Cristal Muhammad PharmD 230 [place] [address] 08/20/2025 10:00 AM EST Clinical Support [facility] CHC MED & PEDS 505 [place] [address] Katherine Casper, RN 505 [place] [address] documented as of this encounter Visit Diagnoses Not on filedocumented in this encounter Additional Health Concerns Assessment Noted Time PHQ-9 Depression Total Score: 11 025 10:25 AM EST documented as of this encounter Care Teams Radiography Technician Relationship Specialty Start Date End Date Jenny Schmidt MD 505 [place] [address] PCP - General Family Medicine 05/02/25 Cristal Muhammad, PharmD 230 [place] [address] Pharmacist Pharmacy 08/07/24 Alan Torres, MAKEDA 505 [place] [address] Registered Nurse Family Medicine 05/06/25 Kaylene Luo 05/06/25 documented as of this encounter
--- OUTSIDE RECORDS SUMMARY | 2025-06-08 10:11 | XMS_ITS | Encounter Summary ---
Author Organization [employer] Address [address] [facility] 7t [place] [address] Care Team Providers Care Metal Fabricator Name Role Phone Joyce Tapia MD Primary Care Provider [phone] Cristal Muhammad PharmD Unavailable [phone] Jenny Schmidt MD Primary Care Provider [phone] Alan Torres RN Unavailable [phone] Kaylene Luo Unavailable Reason for Visit * Reason Onset Date Comments Referral 03/09/2023 Encounter Details Date Type Department Care Team ([facility] st Contact Info) Description 03/09/2023 Telephone [facility] CHC MED & PEDS 505 [place], [place] [phone] Joyce Tapia MD 505 [place], [place] [phone] Referral Social History Tobacco Use Types Packs/Day [...] wait that long. Please contact pt at [phone] documented in this encounter Plan of Treatment Upcoming Encounters Date Type Department Care Team (Late st Contact Info) Description 06/10/2025 11:15 AM EST Office Visit [facility] MED & PEDS 505 [place] [address] Jenny Schmidt MD [address] [place], [place] 07/29/2025 10:00 AM EST Medication Management [facility] MED & PEDS [address] [place] [address] Cristal Muhammad PharmD 230 [place] [address] 08/20/2025 10:00 AM EST Clinical Support [facility] MED & PEDS 505 [place] [address] Katherine Casper, RN 505 [place] [address] documented as of this encounter Visit Diagnoses Not on filedocumented in this encounter Care Teams Metal Fabricator Relationship Specialty Start Date End Date Joyce Tapia MD 230 [place] [address] PCP - General Family Medicine 06/19/12 05/01/25 Jenny Schmidt MD 505 [place] [address] PCP - General Family Medicine 05/02/25 Cristal Muhammad PharmD 230 [place] [address] Pharmacist Pharmacy 08/07/24 Alan Torres, RN [address] [place] [address] Registered Nurse Family Medicine 05/06/25 Kaylene Luo 05/06/25 documented as of this encounter
--- OUTSIDE RECORDS SUMMARY | 2025-06-08 10:11 | XMS_ITS | Encounter Summary ---
Author Organization [employer] Address [address] [facility] 7t [place] [address] Care Team Providers Care Cardroom Manager Name Role Phone Joyce Tapia MD Primary Care Provider [phone] Cristal Muhammad PharmD Unavailable [phone] Jenny Schmidt MD Primary Care Provider [phone] Alan Torres RN Unavailable [phone] Kaylene Luo Unavailable Reason for Visit * Reason Onset Date Comments Med Refill 04/19/2024 Encounter Details Date Type Department Care Team (Late st Contact Info) Description 04/19/2024 Refill [facility] MEDICINE 230 [place] [address] Joyce Tapia MD [address] [place], [place] [phone] Status post surgical removal of nail matrix [...] [facility] MED & PEDS 505 [place] [address] Jenny Schmidt MD 505 [place] [address] 07/29/2025 10:00 AM EST Medication Management [facility] PED[facility] 505 [place] [address] Cristal Muhammad PharmD 230 [place] [address] 08/20/2025 10:00 AM EST Clinical Support [facility] MED & PEDS [address] [place] [address] Katherine Casper, MAKEDA 505 [place] [address] documented as of this encounter Visit Diagnoses Diagnosis Status post surgical removal of nail matrix of toe of left foot documented in this encounter Care Teams Cardroom Manager Relationship Specialty Start Date End Date Joyce Tapia MD 230 [place] [address] PCP - General Family Medicine 06/19/12 05/01/25 Jenny Schmidt MD 505 [place] [address] PCP - General Family Medicine 05/02/25 Cristal Muhammad PharmD 230 [place] [address] Pharmacist Pharmacy 08/07/24 Alan Torres, MAKEDA 505 [place] [address] Registered Nurse Family Medicine 05/06/25 Kaylene Luo 05/06/25 documented as of this encounter
--- OUTSIDE RECORDS SUMMARY | 2025-06-08 10:11 | XMS_ITS | Encounter Summary ---
Author Organization [employer] Address [address] [facility] 7t [place] [address] Care Team Providers Care Auxiliary Power Equipment Operator Name Role Phone Joyce Tapia MD Primary Care Provider [phone] Cristal Muhammad PharmD Unavailable [phone] Jenny Schmidt MD Primary Care Provider Alan Torres RN Unavailable [phone] Kaylene Luo Unavailable Reason for Visit * Reason Onset Date Comments Med Refill 04/14/2025 Encounter Details Date Type Department Care Team (Late st Contact Info) Description 04/14/2025 Refill [facility] MED & PEDS 505 [place], [place] [phone] Joyce Tapia MD 505 [place], [place] [phone] Status post surgical removal of nail matrix [...] 11:15 AM EST Office Visit [facility] MED & PEDS 505 [place] [address] Jenny Schmidt MD 505 [place] [address] 07/29/2025 10:00 AM EST Medication Management [facility] MED & PEDS 505 [place] [address] Cristal Muhammad, BobD 230 [place] [address] 08/20/2025 10:00 AM EST Clinical Support [facility] MED & PEDS 505 [place] [address] Katherine Casper, MAKEDA 505 [place] [address] documented as of this encounter Visit Diagnoses Diagnosis Status post surgical removal of nail matrix of toe of left foot documented in this encounter Additional Health Concerns Assessment Noted Time PHQ-9 Depression Total Score: 7 09/15/19 25 9:02 AM EDT documented as of this encounter Care Teams Auxiliary Power Equipment Operator Relationship Specialty Start Date End Date Joyce Tapia MD 230 [place] [address] PCP - General Family Medicine 06/19/12 05/01/25 Jenny Schmidt MD 505 [place] [address] PCP - General Family Medicine 05/02/25 Cristal Muhammad PharmD 230 [place] [address] Pharmacist Pharmacy 08/07/24 Alan Torres, MAKEDA 505 [place] [address] Registered Nurse Family Medicine 05/06/25 Kaylene Luo 05/06/25 documented as of this encounter
--- OUTSIDE RECORDS SUMMARY | 2025-06-08 10:11 | XMS_ITS | Encounter Summary ---
Author Organization [employer] Address [address] [facility] 7t [place] [address] Care Team Providers Care Nitric Acid Concentrator Operator Name Role Phone Joyce Tapia MD Primary Care Provider [phone] Cristal Muhammad PharmD Unavailable [phone] Jenny Schmidt MD Primary Care Provider [phone] Alan Torres RN Unavailable [phone] Kaylene Luo Unavailable Reason for Visit * Reason Onset Date Comments Appt 08/09/2024 Encounter Details Date Type Department Care Team (Late st Contact Info) Description 08/09/2024 Telephone [facility] MEDICINE 230 [place] [address] Joyce Tapia MD [address] [place], [place] [phone] Appt Social History Tobacco Use Types Packs/Day [...] can be changed for a phone visit. [phone] documented in this encounter Plan of Treatment Upcoming Encounters Date Type Department Care Team ([facility] Contact Info) Description 06/10/2025 11:15 AM EST Office Visit [facility] MED & PEDS [address] [place] [address] Jenny Schmidt MD 505 [place] [address] 07/29/2025 10:00 AM EST Medication Management [facility] MED & PEDS [address] [place] [address] Cristal Muhammda, BobD 230 [place] [address] 08/20/2025 10:00 AM EST Clinical Support [facility] MED & PEDS [address] [place] [address] Katherine Casper, MAKEDA 505 [place] [address] documented as of this encounter Visit Diagnoses Not on filedocumented in this encounter Care Teams Nitric Acid Concentrator Operator Relationship Specialty Start Date End Date Joyce Tapia MD 230 [place] [address] PCP - General Family Medicine 06/19/12 05/01/25 Jenny Schmidt MD 505 [place] [address] PCP - General Family Medicine 05/02/25 Cristal Muhammad PharmD 230 [place] [address] Pharmacist Pharmacy 08/07/24 Alan Torres, MAKEDA 505 [place] [address] Registered Nurse Family Medicine 05/06/25 Kaylene Luo 05/06/25 documented as of this encounter
--- OUTSIDE RECORDS SUMMARY | 2025-06-08 10:11 | XMS_ITS | Encounter Summary ---
Author Organization [employer] Address 75 [facility] 7t [place] [address] Care Team Providers Care Pollution Control Technician Name Role Phone Joyce Tapia MD Primary Care Provider [phone] Cristal Muhammad PharmD Unavailable [phone] Jenny Schmidt MD Primary Care Provider [phone] Alan Torres RN Unavailable [phone] Kaylene Luo Unavailable Reason for Visit * Reason Onset Date Comments Med Refill 04/11/2024 Encounter Details Date Type Department Care Team ([facility] st Contact Info) Description 04/11/2024 Telephone [facility] MED & PEDS 505 [place], [place] [phone] Joyce Tapia MD 505 [place], [place] [phone] Med Refill Social History Tobacco Use Types [...] release tablet To be sent to: [facility] - [place], [place] - [address] [place] [address] documented in this encounter Plan of Treatment Upcoming Encounters Date Type Department Care Team ([facility] st Contact Info) Description 06/10/2025 11:15 AM EST Office Visit [facility] MED & PEDS 505 [place] [address] Jenny Schmidt MD 505 [place] [address] 07/29/2025 10:00 AM EST Medication Management [facility] MED & PEDS 505 [place] [address] Cristal Muhammad PharmD 230 [place] [address] 08/20/2025 10:00 AM EST Clinical Support [facility] CHC MED & PEDS 505 [place] [address] Katherine Casper, MAKEDA 505 [place] [address] documented as of this encounter Visit Diagnoses Not on filedocumented in this encounter Care Teams Pollution Control Technician Relationship Specialty Start Date End Date Joyce Tapia MD 230 [place] [address] PCP - General Family Medicine 06/19/12 05/01/25 Jenny Schmidt MD 505 [place] [address] PCP - General Family Medicine 05/02/25 Cristal Muhammad, BobD 230 [place] [address] Pharmacist Pharmacy 08/07/24 Alan Torres, MAKEDA 505 [place] [address] Registered Nurse Family Medicine 05/06/25 Kaylene Luo 05/06/25 documented as of this encounter
--- OUTSIDE RECORDS SUMMARY | 2025-06-08 10:11 | XMS_ITS | Encounter Summary ---
Author Organization [employer] Address 75 [facility] 7t [place] [address] Care Team Providers Care Gage Maker Name Role Phone Joyce Tapia MD Primary Care Provider [phone] Cristal Muhammad PharmD Unavailable [phone] Jenny Schmidt MD Primary Care Provider [phone] Alan Torres RN Unavailable [phone] Kaylene Luo Unavailable Reason for Visit * Reason Onset Date Comments Med Refill 03/02/2025 Encounter Details Date Type Department Care Team ([facility] st Contact Info) Description 03/02/[address] [facility] CHC MED & PEDS 505 [place], [place] [phone] Ayden Orellana MD 505 [place], [place] [phone] Med Refill Social History Tobacco Use Types [...] pickup. Pt asked for a referral to pets salesperson, [facility]. documented in this encounter Plan of Treatment Upcoming Encounters Date Type Department Care Team ([facility] st Contact Info) Description 06/10/2025 11:15 AM EST Office Visit [facility] MED & PEDS 505 [place], [place] [phone] Jenny Schmidt MD 505 [place] [address] 07/29/2025 10:00 AM EST Medication Management [facility] MED & PEDS 505 [place] [address] Cristal Muhammad PharmD 230 [place] [address] 08/20/2025 10:00 AM EST Clinical Support [facility] MED & PEDS 505 [place] [address] Katherine Casper, MAKEDA 505 [place] [address] documented as of this encounter Visit Diagnoses Diagnosis Status post surgical removal of nail matrix of toe of left foot documented in this encounter Additional Health Concerns Assessment Noted Time PHQ-9 Depression Total Score: 7 09/15/19 9:02 AM EDT documented as of this encounter Care Teams Gage Maker Relationship Specialty Start Date End Date Joyce Tapia MD 230 [place] [address] PCP - General Family Medicine 06/19/12 05/01/25 Jenny Schmidt MD [address] [place] [address] PCP - General Family Medicine 05/02/25 Cristal Muhammad, BobD [address] [place] [address] Pharmacist Pharmacy 08/07/24 Alan Torres, MAKEDA [address] [place] [address] Registered Nurse Family Medicine 05/06/25 Kaylene Luo 05/06/25 documented as of this encounter
--- OUTSIDE RECORDS SUMMARY | 2025-06-08 10:11 | XMS_ITS | Encounter Summary ---
Author Organization [employer] Address 75 [facility] 7t [place] [address] Care Team Providers Care Real Estate Sales Manager Name Role Phone Joyce Tapia MD Primary Care Provider [phone] Cristal Muhammad PharmD Unavailable [phone] Jenny cShmidt MD Primary Care Provider [phone] Alan Torres RN Unavailable [phone] Kaylene Luo Unavailable Reason for Visit * Reason Onset Date Comments Med Refill 09/11/2024 Encounter Details Date Type Department Care Team (Late st Contact Info) Description 09/11/[address] [facility] MEDICINE 230 [place] [address] Joyce Tapia MD [address] [place], [place] [phone] Med Refill Social History Tobacco Use Types [...] Assessment Author Somewhat difficult 09/14/2024 9:02 AM Dorothae Higuera [place] documented as of this encounter Miscellaneous Notes * Telephone Encounter - Sha Harris - 09/11/2024 9:37 AM EDT TC from pt requesting medication refill. Medications needing refill : oxyCODONE (Roxicodone) 5 MG immediate release tablet To be sent to: [facility]/pharmacy #[id number] NAKUL RYDER - [id number] documented in this encounter Plan of Treatment Upcoming Encounters Date Type Department Care Team ([facility] st Contact Info) Description 06/10/2025 11:15 AM EST Office Visit [facility] MED & PEDS [facility] [place] [address] Jenny Schmidt MD 505 [place] [address] 07/29/2025 10:00 AM EST Medication Management [facility] MED & PEDS 505 [place] [address] Cristal Muhammad, Deonte 230 [place] [address] 08/20/2025 10:00 AM EST Clinical Support [facility] MED & PEDS [address] [place] [address] Katherine Casper, MAKEDA 505 [place] [address] documented as of this encounter Visit Diagnoses Not on filedocumented in this encounter Care Teams Real Estate Sales Manager Relationship Specialty Start Date End Date Joyce Tapia MD 230 [place] [address] PCP - General Family Medicine 06/19/12 05/01/25 Jenny Schmidt MD 505 [place] [address] PCP - General Family Medicine 05/02/25 Cristal Muhammad, BobD 230 [place] [address] Pharmacist Pharmacy 08/07/24 Alan Torres, MAKEDA 505 [place] [address] Registered Nurse Family Medicine 05/06/25 Kaylene Luo 05/06/25 documented as of this encounter
--- OUTSIDE RECORDS SUMMARY | 2025-06-08 10:11 | XMS_ITS | Encounter Summary ---
Author Organization [employer] Address 75 [facility] 7t [place] [address] Care Team Providers Care Plant Operator Helper Name Role Phone Cristal Muhammad PharmD Unavailable [phone] Jenny Schmidt MD Primary Care Provider [phone] Alan Torres RN Unavailable [phone] Kaylene Luo Unavailable Reason for Visit * Reason Onset Date Comments Med Refill 06/03/2025 Encounter Details Date Type Department Care Team ([facility] st Contact Info) Description 06/03/2025 Refill [facility] MED & PEDS 505 [place], [place] [phone] Jenny Schmidt MD 505 [place], [place] [phone] Status post surgical removal of nail matrix [...] Upcoming Encounters Date Type Department Care Team ([facility] st Contact Info) Description 06/10/2025 11:15 AM EST Office Visit [facility] MED & PEDS 505 [place] [address] Jenny Schmidt MD 505 [place] [address] 07/29/2025 10:00 AM EST Medication Management [facility] MED & PEDS [address] [place], [place] [phone] Cristal Muhammad, Deonte 230 [facility] [place] [address] 08/20/2025 10:00 AM EST Clinical Support [facility] MED & PEDS 505 [place], [place] [phone] Katherine Casper RN 505 [place], [place] documented as of this encounter Goals Goal [...] blood pressure task No Katherine Casper RN Patient has chronic [...] documented as of this encounter Care Teams Plant Operator Helper Relationship Specialty Start Date End Date Jenny Schmidt MD 505 [place] [address] PCP - General Family Medicine 05/02/25 Cristal Muhammad, BobD 230 [place] [address] Pharmacist Pharmacy 08/07/24 Alan Torres, RN 505 [place] [address] Registered Nurse Family Medicine 05/06/25 Kaylene Luo 05/06/25 documented as of this encounter
--- OUTSIDE RECORDS SUMMARY | 2025-06-08 10:11 | XMS_ITS | Encounter Summary ---
Author Organization [employer] Address 75 [facility] 7t [place] [address] Care Team Providers Care Information Systems Director Name Role Phone Cristal Muhammad PharmD Unavailable [phone] Jenny Schmidt MD Primary Care Provider [phone] Alan Torres RN Unavailable [phone] Kaylene Luo Unavailable Reason for Visit * Reason Onset Date Comments Med Refill 05/31/2025 Encounter Details Date Type Department Care Team (Late st Contact Info) Description 05/30/2025 Refill [facility] MEDICINE [address] [place] [address] Jenny Schmidt MD [address] [place], [place] [phone] Social History Tobacco Use Types Packs/Day Years [...] Upcoming Encounters Date Type Department Care Team ([facility] st Contact Info) Description 06/10/2025 11:15 AM EST Office Visit [facility] MED & PEDS [address] [place] [address] Jenny Schmidt MD 505 [place] [address] 07/29/2025 10:00 AM EST Medication Management [facility] MED & PEDS [address] [place] [address] Cristal Muhammad PharmD [address] [place] [address] 08/20/2025 10:00 AM EST Clinical Support [facility] MED & PEDS [address] [place] [address] Katherine Casper, MAKEDA 505 [place] [address] documented as of this encounter Visit Diagnoses Not on filedocumented in this encounter Additional Health Concerns Assessment Noted Time PHQ-9 Depression Total Score: 11 025 10:25 AM EST documented as of this encounter Care Teams Information Systems Director Relationship Specialty Start Date End Date Jenny Schmidt MD [address] [place] [address] PCP - General Family Medicine 05/02/25 Cristal Muhammad, Deonte [address] [place] [address] Pharmacist Pharmacy 08/07/24 Alan Torres, MAKEDA [address] [place] [address] Registered Nurse Family Medicine 05/06/25 Kaylene Luo 05/06/25 documented as of this encounter
--- OUTSIDE RECORDS SUMMARY | 2025-06-08 10:11 | XMS_ITS | Encounter Summary ---
Author Organization [employer] Address 75 [facility] 7t [place] [address] Care Team Providers Care Labor Expediter Name Role Phone Cristal Muhammad PharmD Unavailable Jenny Schmidt MD Primary Care Provider [phone] Alan Torres RN Unavailable [phone] Kaylene Luo Unavailable Reason for Visit * Reason Onset Date Comments Med Refill 06/01/2025 Encounter Details Date Type Department Care Team (Late st Contact Info) Description 06/01/2025 Refill [facility] CHC MED & PEDS [address] [place], [place] [phone] Cristal Muhammad, PharmD [address] [place], [place] [phone] Type 2 diabetes mellitus without complication, without [...] Telephone Encounter - Cristal Muhammad PharmD - 06/03/2025 1:49 PM EST Patient requesting refill to [facility] however has an active prescription at [facility] and it is in the medbox documented in this encounter Plan of Treatment Upcoming Encounters Date Type Department Care Team (Late st Contact Info) Description 06/10/2025 11:15 AM EST Office Visit [facility] MED & PEDS [address] [place] [address] Jenny Schmidt MD [address] [place] [address] 07/29/2025 10:00 AM EST Medication Management [facility] MED & PEDS [address] [place] [address] Cristal Muhammad PharmD 230 [place] [address] 08/20/2025 10:00 AM EST Clinical Support [facility] MED & PEDS 505 [place] [address] Katherine Casper RN 505 [place] [address] documented as of this encounter Visit Diagnoses Diagnosis Type 2 diabetes mellitus without complication, without long-term current use of insulin (HCC) documented in this encounter Additional Health Concerns Assessment Noted Time PHQ-9 Depression Total Score: 11 025 10:25 AM EST documented as of this encounter Care Teams Labor Expediter Relationship Specialty Start Date End Date Jenny Schmidt MD [address] [place] [address] PCP - General Family Medicine 05/02/25 Cristal Muhammad, BobD 230 [place] [address] Pharmacist Pharmacy 08/07/24 Alan Torres, RN 505 [place] [address] Registered Nurse Family Medicine 05/06/25 Kaylene Luo 05/06/25 documented as of this encounter
--- OUTSIDE RECORDS SUMMARY | 2025-06-08 10:11 | XMS_ITS | Encounter Summary ---
Author Organization [employer] Address 75 [facility] 7t [place] [address] Care Team Providers Care Senior Online Marketing Manager Name Role Phone Cristal Muhammad PharmD Unavailable [phone] Jenny Schmidt MD Primary Care Provider [phone] Alan Torres RN Unavailable [phone] Kaylene Luo Unavailable Reason for Visit * Reason Onset Date Comments Med Refill 06/03/2025 Encounter Details Date Type Department Care Team (Late st Contact Info) Description 06/03/2025 Refill [facility] CHC MED & PEDS [address] [place], [place] [phone] Cristal Muhammad, PharmD [address] [place], [place] [phone] Type 2 diabetes mellitus without complication, without [...] Telephone Encounter - Katherine Casper RN - 06/03/2025 11:32 AM EST TC to pt, Oxycodone 5mg [facility]. TECHNICAL TRANSLATOR [place] converted to a televisit on 06/04/25. Pt verbalized understanding. documented in this encounter Plan of Treatment Upcoming Encounters Date Type Department Care Team (Late st Contact Info) Description 06/10/2025 11:15 AM EST Office Visit [facility] MED & PEDS [address] [place] [address] Jenny Schmidt MD 505 [place] [address] 07/29/2025 10:00 AM EST Medication Management [facility] MED & PEDS [address] [place] [address] Cristal Muhammad, BobD [address] [place] [address] 08/20/2025 10:00 AM EST Clinical Support [facility] MED & PEDS [address] [place] [address] Katherine Casper RN 505 [place] [address] documented as of this encounter Goals Goal [...] as of this encounter Care Teams Senior Online Marketing Manager Relationship Specialty Start Date End Date Jenny Schmidt MD 505 [place] [address] PCP - General Family Medicine 05/02/25 Cristal Muhammad, BobD [address] [place] [address] Pharmacist Pharmacy 08/07/24 Alan Torres, MAKEDA 505 [place] [address] Registered Nurse Family Medicine 05/06/25 Kaylene Luo 05/06/25 documented as of this encounter
--- OUTSIDE RECORDS SUMMARY | 2025-06-08 10:11 | XMS_ITS | Encounter Summary ---
Author Organization [employer] Address 75 [facility] 7t [place] [address] Care Team Providers Care Order Caller Name Role Phone Cristal Muhammad PharmD Unavailable [phone] Jenny Schmidt MD Primary Care Provider [phone] Alan Torres RN Unavailable [phone] Kaylene Luo Unavailable Reason for Visit * Reason Comments Med Refill Encounter Details Date Type Department Care Team ([facility] Contact Info) Description 06/02/2025 Refill [facility] CHC MED & PEDS [address] [place], [place] [phone] Jenny Schmidt MD [address] [place], [place] [phone] Social History Tobacco Use Types Packs/Day Years [...] ([facility] st Contact Info) Description 06/10/2025 11:15 AM EST Office Visit [facility] CHC MED & PEDS [address] [place] [address] Jenny Schmidt MD [address] [place] [address] 07/29/2025 10:00 AM EST Medication Management [facility] MED & PEDS [address] [place] [address] Cristal Muhammad PharmD 230 [place] [address] 08/20/2025 10:00 AM EST Clinical Support [facility] MED & PEDS [address] [place] [address] Katherine Casper, MAKEDA 505 [place] [address] documented as of this encounter Visit Diagnoses Not on filedocumented in this encounter Additional Health Concerns Assessment Noted Time PHQ-9 Depression Total Score: 11 025 10:25 AM EST documented as of this encounter Care Teams Order Caller Relationship Specialty Start Date End Date Jenny Schmidt MD [address] [place] [address] PCP - General Family Medicine 05/02/25 Cristla Muhammad, BobD 230 [place] [address] Pharmacist Pharmacy 08/07/24 Alan Torres, MAKEDA 505 [place] [address] Registered Nurse Family Medicine 05/06/25 Kaylene Luo 05/06/25 documented as of this encounter
--- OUTSIDE RECORDS SUMMARY | 2025-06-08 10:11 | XMS_ITS | Encounter Summary ---
Author Organization [employer] Address 75 [facility] 7t [place] [address] Care Team Providers Care Manager Information Name Role Phone Joyce Tapia MD Primary Care Provider [phone] Cristal Muhammad PharmD Unavailable [phone] Jenny Schmidt MD Primary Care Provider [phone] Alan Torres RN Unavailable [phone] Kaylene Luo Unavailable Reason for Visit * Reason Comments Med Refill Encounter Details Date Type Department Care Team ([facility] st Contact Info) Description 04/12/2024 Refill [facility] CHC MED & PEDS [address] [place], [place] [phone] Joyce Tapia MD 505 [place], [place] [phone] Status post surgical removal of nail matrix [...] Description 06/10/2025 11:15 AM EST Office Visit [facility] MED & PEDS [address] [place] [address] Jenny Schmidt MD 505 [place] [address] 07/29/2025 10:00 AM EST Medication Management [facility] MED & PEDS [address] [place] [address] Cristal Muhammad PharmD [address] [place] [address] 08/20/2025 10:00 AM EST Clinical Support [facility] MED & PEDS [address] [place] [address] Katherine Casper, MAKEDA 505 [place] [address] documented as of this encounter Visit Diagnoses Diagnosis Status post surgical removal of nail matrix of toe of left foot documented in this encounter Care Teams Manager Information Relationship Specialty Start Date End Date Joyce Tapia MD [address] [place] [address] PCP - General Family Medicine 06/19/12 05/01/25 Jenny Schmidt MD [address] [place] [address] PCP - General Family Medicine 05/02/25 Cristal Muhammad PharmD [address] [place] [address] Pharmacist Pharmacy 08/07/24 Alan Torres, MAKEDA 505 [place] [address] Registered Nurse Family Medicine 05/06/25 Kaylene Luo 05/06/25 documented as of this encounter
--- OUTSIDE RECORDS SUMMARY | 2025-06-08 10:11 | XMS_ITS | Encounter Summary ---
Author Organization [employer] Address 75 [facility] 7t [place] [address] Care Team Providers Care Floor Layer Apprentice Name Role Phone Joyce Tapia MD Primary Care Provider [phone] Cristal Muhammad PharmD Unavailable [phone] Jenny Schmidt MD Primary Care Provider [phone] Alan Torres RN Unavailable [phone] Kaylene Luo Unavailable Encounter Details Date Type Department Care Team (Latest Contact Info) Description 03/21/2019 Abstract [facility] CONVERSIONS Dental, Provider, DDS Social History [...] Care Team ( st Contact Info) Description 06/10/2025 11:15 AM EST Office Visit [facility] MED & PEDS [address] [place], [place] [phone] Jenny Schmidt MD 505 [place] [address] 07/29/2025 10:00 AM EST Medication Management [facility] MED & PEDS [address] [place] [address] Cristal Muhammad, PharmD [address] [place] [address] 08/20/2025 10:00 AM EST Clinical Support [facility] CHC MED & PEDS [address] [place] [address] Katherine Casper, MAKEDA 505 [place] [address] documented as of this encounter Visit Diagnoses Not on filedocumented in this encounter Care Teams Floor Layer Apprentice Relationship Specialty Start Date End Date Joyce Tapia MD [address] [place] [address] PCP - General Family Medicine 06/19/12 05/01/25 Jenny Schmidt MD 505 [place] [address] PCP - General Family Medicine 05/02/25 Cristal Muhammad PharmD [address] [place] [address] Pharmacist Pharmacy 08/07/24 Alan Torres, RN 505 [place] [address] Registered Nurse Family Medicine 05/06/25 Kaylene Luo 05/06/25 documented as of this encounter
--- OUTSIDE RECORDS SUMMARY | 2025-06-08 10:11 | XMS_ITS | Encounter Summary ---
Author Organization [employer] Address 75 [facility] 7t [place] [address] Care Team Providers Care Sheet Metal Insulator Name Role Phone Joyce Tapia MD Primary Care Provider [phone] Cristal Muhammad PharmD Unavailable [phone] Jenny Schmidt MD Primary Care Provider [phone] Alan Torres RN Unavailable [phone] Kaylene Luo Unavailable Reason for Visit * Reason Onset Date Comments Med Refill 04/18/2024 Encounter Details Date Type Department Care Team (Late st Contact Info) Description 04/18/2024 Refill [facility] MEDICINE [address] [place], [place] [phone] Amber Palacio MD [address] [place], [place] [phone] Smoker Social History Tobacco Use Types Packs/Day [...] 06/10/2025 11:15 AM EST Office Visit [facility] MED & PEDS 505 [place] [address] Jenny Schmidt MD 505 [place] [address] 07/29/2025 10:00 AM EST Medication Management [facility] MED & PEDS [address] [place] [address] Cristal Muhammad PharmD [address] [place] [address] 08/20/2025 10:00 AM EST Clinical Support [facility] MED & PEDS [address] [place] [address] Katherine Casper, MAKEDA [address] [place] [address] documented as of this encounter Visit Diagnoses Diagnosis Smoker Tobacco use disorder documented in this encounter Care Teams Sheet Metal Insulator Relationship Specialty Start Date End Date Joyce Tapia MD [address] [place] [address] PCP - General Family Medicine 06/19/12 05/01/25 Jenny Schmidt MD 505 [place] [address] PCP - General Family Medicine 05/02/25 Cristal Muhammad PharmD [address] [place] [address] Pharmacist Pharmacy 08/07/24 Alan Torres, MAKEDA 505 [place] [address] Registered Nurse Family Medicine 05/06/25 Kaylene Luo 05/06/25 documented as of this encounter
--- OUTSIDE RECORDS SUMMARY | 2025-06-08 10:11 | XMS_ITS | Encounter Summary ---
Author Organization [employer] Address 75 [facility] 7t [place] [address] Care Team Providers Care Industrial Specialist Name Role Phone Joyce Tapia MD Primary Care Provider [phone] Cristal Muhammad PharmD Unavailable [phone] Jenny Schmidt MD Primary Care Provider [phone] Alan Torres RN Unavailable [phone] Kaylene Luo Unavailable Reason for Visit * Reason Onset Date Comments Med Refill 03/17/2023 Encounter Details Date Type Department Care Team (Late st Contact Info) Description 03/17/2023 Telephone [facility] CHC MED & PEDS [address] [place], [place] [phone] Joyce Tapia MD [address] [place], [place] [phone] Med Refill Social History Tobacco Use Types [...] [facility] [address] [place] [address] Jenny Schmidt MD [address] [place] [address] 07/29/2025 10:00 AM EST Medication Management [facility] MED & PEDS [address] [place], [place] [phone] Cristal Muhammad PharmD 230 [place] [address] 08/20/2025 10:00 AM EST Clinical Support [facility] MED & PEDS [address] [place] [address] Katherine Casper RN 505 [place] [address] documented as of this encounter Visit Diagnoses Not on filedocumented in this encounter Care Teams Industrial Specialist Relationship Specialty Start Date End Date Joyce Tapia MD [address] [place] [address] PCP - General Family Medicine 06/19/12 05/01/25 Jenny Schmidt MD [address] [place] [address] PCP - General Family Medicine 05/02/25 Cristal Muhammad PharmD [address] [place] [address] Pharmacist Pharmacy 08/07/24 Alan Torres, RN [address] [place] [address] NAKUL Molina [address] Registered Nurse Family Medicine 05/06/25 Kaylene uLo 05/06/25 documented as of this encounter
--- OUTSIDE RECORDS SUMMARY | 2025-06-08 10:11 | XMS_ITS | Encounter Summary ---
Author Organization [employer] Address 75 [facility] 7t [place] [address] Care Team Providers Care Landscaping Supervisor Name Role Phone Cristal Muhammad PharmD Unavailable [phone] Jenny Schmidt MD Primary Care Provider Alan Torres RN Unavailable [phone] Kaylene Luo Unavailable Reason for Visit * Reason Onset Date Comments chart prep 06/07/2025 Encounter Details Date Type Department Care Team ([facility] Contact Info) Description 06/07/2025 Telephone [facility] CHC MED & PEDS [address] [place], [place] [phone] Jenny Schmidt MD [address] [place], [place] [phone] chart prep Social History Tobacco Use Types Packs/Day Years [...] encounter Miscellaneous Notes * Telephone Encounter - Rajinder Balderas MA - 06/07/2025 11:31 AM EST Chart Prep Labs: done Images: done Referrals: complete Vaccines due: RSV Screenings: foot exam mammo Overdue care gaps: A1c, Glucose, and SDOH documented in this encounter Plan of Treatment Upcoming Encounters Date Type Department Care Team (Late st Contact Info) Description 06/10/2025 11:15 AM EST Office Visit [facility] MED & PEDS [address] [place] [address] Jenny Schmidt MD [address] [place] [address] 07/29/2025 10:00 AM EST Medication Management [facility] MED & PEDS [address] [place] [address] Cristal Muhammad, BobD [address] [place] [address] 08/20/2025 10:00 AM EST Clinical Support [facility] MED & PEDS [address] [place] [address] Katherine Casper RN [address] [place] [address] documented as of this encounter Goals Goal [...] documented as of this encounter Care Teams Landscaping Supervisor Relationship Specialty Start Date End Date Jenny Schmidt MD [address] [place] [address] PCP - General Family Medicine 05/02/25 Cristal Muhammad PharmD 230 [place] [address] Pharmacist Pharmacy 08/07/24 Alan Torres, MAKEDA [address] [place] [address] Registered Nurse Family Medicine 05/06/25 Kaylene Luo 05/06/25 documented as of this encounter
--- OUTSIDE RECORDS SUMMARY | 2025-06-08 10:11 | XMS_ITS | Encounter Summary ---
Author Organization [employer] Address [address] [facility] 7t [place] [address] Care Team Providers Care Sales Effectiveness Manager Name Role Phone Joyce Tapia MD Primary Care Provider [phone] Cristal Muhammad PharmD Unavailable [phone] Jenny Schmidt MD Primary Care Provider [phone] Alan Torres RN Unavailable [phone] Kaylene Luo Unavailable Reason for Visit * Reason Onset Date Comments Med Refill 04/19/2023 Encounter Details Date Type Department Care Team ([facility] st Contact Info) Description 04/19/2023 Telephone [facility] CHC MED & PEDS [address] [place], [place] [phone] Joyce Tapia MD [address] [place], [place] [phone] Med Refill Social History Tobacco Use Types [...] Description 06/10/2025 11:15 AM EST Office Visit [facility] MED & PEDS [address] [place] [address] Jenny Schmidt MD [address] [place] [address] 07/29/2025 10:00 AM EST Medication Management [facility] MED & PEDS [address] [place] [address] Cristal Muhammad PharmD [address] [place] [address] 08/20/2025 10:00 AM EST Clinical Support [facility] MED & PEDS [address] [place] [address] Katherine Casper RN [address] [place] [address] documented as of this encounter Visit Diagnoses Not on filedocumented in this encounter Care Teams Sales Effectiveness Manager Relationship Specialty Start Date End Date Joyce Tapia MD [address] [place] [address] PCP - General Family Medicine 06/19/12 05/01/25 Jenny Schmidt MD [address] [place] [address] PCP - General Family Medicine 05/02/25 Cristal Muhammad PharmD [address] [place] [address] Pharmacist Pharmacy 08/07/24 Alan Torres, MAKEDA 505 [place] [address] Registered Nurse Family Medicine 05/06/25 Kaylene Luo 05/06/25 documented as of this encounter
--- OUTSIDE RECORDS SUMMARY | 2025-06-08 10:11 | XMS_ITS ---
Author Organization [employer] Address [address] [place] [address] 7t [place] [address] Care Team Providers Care Cloth Desizing Range Tender Name Role Phone Cristal Muhammad PharmD Unavailable [phone] Jenny Schmidt MD Primary Care Provider [phone] Alan Torres RN Unavailable [phone] Kaylene Luo Unavailable STAPLE PROCESSING MACHINE OPERATOR Status:Enrolled (Active) Start date:10/22/2022 Enrollment date:10/22/2022 Case Team Name Relationship Phone Katherine Casper RN(Responsible Staff) Registered Nurse Continued Care and Services Coordination
--- OUTSIDE RECORDS SUMMARY | 2025-06-08 10:11 | XMS_ITS | Clinical Summary ---
Author Organization [employer] Address [address] [facility] 7[address] [place] [address] Care Team Providers Care Assistant Scientist Name Role Phone Cristal Muhammad PharmD Unavailable [phone] Jenyn Schmidt MD Primary Care Provider [phone] Alan Torres RN Unavailable [phone] Kaylene Luo Unavailable Allergies Active Allergy Reactions [...] daily. 025 Active Blood Glucose Monitoring Suppl (InView Technology Lite) w/Device kit Test blood sugar as directed 1 kit Active Blood Pressure kit Check blood pressure daily 1 kit Active atorvastatin (Lipitor) 40 MG tablet Take 1 tablet (40 mg) by mouth Once per day. 90 tablet 3 5 8:33 AM EST Active glucagon (Baqsimi Two Pack) 3 MG/DOSE [...] glass of water. 60 tablet 2 Active Additional Information Patient not taking.Reported on 05/27/2025 pramipexole (Mirapex) 0.5 MG tablet TAKE ONE TABLET THREE TIMES DAILY IN THE MORNING, EVENING AND BEDTIME 90 tablet 11 5 8:33 AM EST Active furosemide (Lasix) 20 MG tablet Take 0.5 tablets (10 mg) by mouth Once per day. 15 tablet 11 06/042025 Active empagliflozin (Jardiance) 25 MGIndications:T ype 2 diabetes mellitus without complication, without long-term current use of insulin ([facility]) Take 1 tablet (25 mg) by mouth Once per day. 30 tablet 5 Active clotrimazole (Lotrimin) 1 % vaginal creamIndication s:Vulvovaginal Candidiasis Insert one applicator per vagina at bedtime for 7 nights 45 g Active Additional Information Patient not taking.Reported on 05/27/2025 tiZANidine (Zanaflex) 4 MG tabletIndicatio ns:Muscle spasm TAKE ONE TABLET EVERY EVENING 30 tablet 3 8:43 AM EST Active naloxone (Narcan) 4 mg/0.1 mL nasal [...] NIGHT AT BEDTIME 30 tablet 6 Active albuterol (2.5 MG/3ML) 0.083% nebulizer solutionIndicat [...] TWICE A DAY 60 tablet 3 Active FREESTYLE LITE test stripIndication s:Type 2 diabetes mellitus without complication, without long-term current use of insulin ([facility]) USE TO TEST BLOOD SUGAR THREE TIMES A DAY 100 strip 5 5 8:33 AM EST Active Easy Touch Lancets 33G/Twist miscIndications :Type 2 diabetes mellitus without complication, without long-term current use of insulin ([facility]) USE TO TEST BLOOD SUGAR THREE TIMES A DAY 100 each 5 5 8:33 AM EST 025 Active clotrimazole-be tamethasone (Lotrisone) cream APPLY 1 GRAM THREE TIMES A DAY TO AFFECTED AREA NEEDED FOR ITCHING/IRRITAT ION 025 Active linaGLIPtin (Tradjenta) 5 MG tabletIndicatio ns:Type 2 diabetes mellitus without complication, without long-term current use of insulin ([facility]) Take 1 tablet (5 mg) by mouth Once per day. 90 tablet 1 5 8:43 AM EST 025 Active minocycline 100 MG capsuleIndicati ons:Hidradeniti [...] each every 15 days. 2 each Active zolpidem (Ambien) 5 MG tablet TAKE ONE TABLET EVERY NIGHT AT BEDTIME NEEDED FOR SLEEP 28 tablet 1 Active gabapentin (Neurontin) 100 MG capsule TAKE 1 CAPSULE BY MOUTH TWICE A DAY 60 capsule 2 025 Active oxyCODONE (Roxicodone) 5 MG immediate release tabletIndicatio ns:Status post surgical removal of nail matrix of toe of left foot Take 1 tablet (5 mg) by mouth every 6 (six) hours if needed for severe pain for up to 14 days. 56 tablet 5 12:42 PM EST 025 2024 Active cyanocobalamin (Vitamin B-12) 1000 MCG tablet TAKE ONE TABLET EVERY MORNING 90 tablet 1 025 2024 Discontinued Continuous Glucose Sensor (FreeStyle Gwendolyn 3 Plus Sensor) mis 1 each every 15 days. 2 each 2024 Discontinued(R eorder (will not trigger notification to Pharmacy)) minocycline 100 MG capsuleIndicati ons:Hidradeniti s suppurativa Take 1 capsule (100 mg) by mouth 2 times daily. 60 capsule 1 2024 Discontinued lidocaine (Lidoderm) 5 % patchIndication s:Pain APPLY 1 PATCH TOPICALLY EVER DAY. REMOVE AND DISCARD PATCH WITHIN 12 HOURS OR DIRECTED BY MD. 30 patch 2024 Discontinued(R eorder (will not trigger notification to Pharmacy)) zolpidem (Ambien) 5 MG tablet TAKE ONE TABLET EVERY NIGHT AT BEDTIME NEEDED FOR SLEEP 30 tablet 2024 Discontinued(R eorder (will not trigger [...] Indication: fibromyalgia, neuropathic pain right hand Last POLICE PILOT Agreement: 11/14/24 Tier: 3 (POLICE PILOT visits Q4-6 months) GERD (gastroesophageal reflux disease) [...] Recommendations brianna Adler will reach out to [facility] and[facility] if further supports needed Status post [...] Encounters Date Type Department Care Team Description 06/07/2025 Telephone [facility] [address] [place] [address] Jenny Schmidt MD chart prep 06/04/2025 11:00 AM EST Telemedicine [facility] [address] [place] [address] Katherine Casper, instrument repairer bilateral low back pain without sciatica 06/04/2025 Travel 06/03/2025 Refill [facility] [address] [place] [address] Cristal Muhammad PharmD Type 2 diabetes mellitus without complication, without long-term current use of insulin ([facility]) 06/03/2025 Refill [facility] [address] [place] [address] Jenny Schmidt MD Status post surgical removal of nail matrix of toe of left foot 06/02/2025 Refill [facility] [address] [place] [address] Jenny Schmidt MD 06/01/2025 Refill [facility] [address] [place] [address] Cristal Muhammad PharmD Type 2 diabetes mellitus without complication, without long-term current use of insulin ([facility]) 06/01/2025 Refill [facility] [address] [place] [address] Jenny Schmidt MD Status post surgical removal of nail matrix of toe of left foot 05/30/2025 Refill [facility] [address] [place] [address] Jenny Schmidt MD 05/29/2025 Plan of Care Documentation [facility] [address] [place] [address] 05/29/2025 Plan of Care Documentation [address] [address] 05/28/2025 Patient Outreach [address] [address] Jenny Schmidt MD 05/27/2025 Patient Outreach [facility] [address] [place] [address] Jenny Schmidt MD Care Management (C3- Initial assessment/enrollme nt) 05/24/2025 Patient Outreach [address] [address] Jenny Schmidt MD Care Coordination (C3/[facility] Kaylene Luo, appointment reminder ) 05/22/2025 Patient Outreach [address] [address] Jenny Schmidt MD Care Coordination (C3/GEETHA Luo, initial assessment scheduled ) 05/20/2025 Refill [facility] [address] [place] [address] Cristal Muhammad, PharmD 05/20/2025 Refill [facility] [address] [place] [address] Cristal Muhammad, PharmD 05/20/2025 Refill [facility] [address] [place] [address] Jenny Schmidt MD Status post surgical removal of nail matrix of toe of left foot; Pain 05/18/2025 Refill [facility] [address] [place] [address] Cristal Muhammad, PharmD 05/18/2025 Refill [facility] [address] [place] [address] Jenny Schmidt MD Status post surgical removal of nail matrix of toe of left foot; Pain 05/15/2025 Refill [facility] [address] [place], [place] [phone] Cristal Muhammad, PharmD 05/15/2025 Refill [facility] [address] [place] [address] Joyce Tapia MD Pain 05/14/2025 Refill [facility] [address] [place], [place] [phone] Joyce Tapia MD Pain 05/13/2025 Refill [facility] [address] [place] [address] Ayden Orellana MD Hidradenitis suppurativa 05/08/2025 Results Follow-Up [facility] [address] [place] [address] Jenny Schmidt MD Diabetes Eye Exam 05/08/2025 Orders Only Maria Par[facility] Health Information Management [address] [place] [address] Saumya Blake MD 05/06/2025 10:00 AM EST Telemedicine [facility] [address] [place], [place] [phone] Cristal Muhammad, PharmD Type 2 diabetes mellitus without complication, without long-term current use of insulin (HCC) (Primary Dx) 05/06/2025 Refill [facility] [address] [place] [address] Joyce Tapia MD Status post surgical removal of nail matrix of toe of left foot 05/06/2025 Patient Outreach [facility] [address] [place] [address] Jenny Schimdt MD Care Coordination ([facility]/W Linda Rasheed) 05/06/2025 Telephone [facility] [address] [place], [place] [phone] Cristal Muhammad PharmD 05/06/2025 Patient Outreach [facility] [address] [place], [place] [phone] Jenny Schmidt MD Care Coordination (C3- chart review) 05/06/2025 Patient Outreach [facility] [address] [place] [address] Jenny Schmidt MD 05/06/2025 Travel 05/06/2025 Refill [facility] [address] [place] [address] Joyce Tapia MD Status post surgical removal of nail matrix of toe of left foot 05/05/2025 Refill [facility] [address] [place] [address] Joyce Tapia MD Status post surgical removal of nail matrix of toe of left foot 05/05/2025 Travel 05/03/2025 Travel 04/25/2025 Refill [facility] [address] [place] [address] Joyce Tapia MD 04/24/2025 Refill [facility] [address] [place] [address] Cristal Muhammad PharmD Type 2 diabetes mellitus without complication, without long-term current use of insulin (HCC) 04/21/2025 Refill [facility] [address] [place] [address] Joyce Tapia MD Status post surgical removal of nail matrix of toe of left foot 04/17/2025 Refill [facility] [address] [place] [address] Joyce Tapia MD Status post surgical removal of nail matrix of toe of left foot 04/16/2025 10:00 AM EDT Office Visit [facility] [address] [place] [address] Donnie, Dana, OD Type 2 diabetes mellitus without complication, without long-term current use of insulin (HCC) (Primary Dx) 04/16/2025 Travel 04/15/2025 Travel 04/14/2025 Refill [facility] [address] [place] [address] Joyce Tapia MD Status post surgical removal of nail matrix of toe of left foot 04/12/2025 Refill [facility] [address] [place] [address] Joyce Tapia MD Type 2 diabetes mellitus without complication, without long-term current use of insulin (HCC) 04/08/2025 Refill C [facility] [address] [place] [address] Ayden Orellana MD Status post surgical removal of nail matrix of toe of left foot 04/07/2025 Refill [facility] [address] [place] [address] Joyce Tapia MD Status post surgical removal of nail matrix of toe of left foot 04/07/2025 Refill [facility] [address] [place] [address] Joyce Tapia MD 04/04/2025 Travel 04/03/2025 Travel 03/31/2025 Refill [facility] [address] [place] [address] Ayden Orellana MD Status post surgical removal of nail matrix of toe of left foot 03/27/2025 Refill [facility] [address] [place] [address] Joyce Tapia MD Pain 03/24/2025 Refill [facility] [address] [place] [address] Ayden Orellana MD Wheezing 03/24/2025 Refill [facility] [address] [place] [address] Joyce Tapia MD Pain; Status post surgical removal of nail matrix of toe of left foot 03/24/2025 Refill [facility] [address] [place] [address] Juan Montanez MD Mild intermittent asthma with exacerbation; Wheezing; Pain 03/19/2025 10:30 AM EDT Office Visit [facility] [address] [place] [address] Ayden Orellana MD Hidradenitis suppurativa (Primary Dx) 03/19/2025 Travel 03/18/2025 Travel 03/17/2025 Refill [facility] [address] [place] [address] Joyce Tapia MD Status post surgical removal of nail matrix of toe of left foot 03/15/2025 Refill [facility] [address] [place] [address] Joyce Tapia MD 03/11/2025 11:30 AM EDT Telemedicine [facility] [address] [place] [address] Joyec Tapia MD Bone spur of left foot (Primary Dx); Type 2 diabetes mellitus without complication, without long-term current use of insulin ([facility]); Fibromyalgia 03/11/2025 Travel 03/10/2025 Travel 03/10/2025 Refill [facility] [address] [place] [address] Joyce Tapia MD Status post surgical removal of nail matrix of toe of left foot 03/09/2025 Refill [facility] [address] [place] [address] Joyce Tapia MD from Last 3 Months Immunizations Immunization Administration [...] 11:15 AM EST Office Visit [facility] [address] [place] [address] Jenny Schmidt MD [address] [place] [address] 07/29/2025 10:00 AM EST Medication Management [facility] [address] [place] [address] Cristal Muhammad, PharmD [address] [place] [address] 08/20/2025 10:00 AM EST Clinical Support [facility] [address] [place] [address] Katherine Casper, MAKEDA [address] [place] [address] Health Maintenance Due Date Last Done Comments CT Colonography 1962 FIT DNA/Cologuard 1960 FIT 1962 FOBT 1960 HIV Screening 1960 Sigmoidoscopy 1960 Hepatitis C Screening 1980 RSV Patients and Patients Aged 60 years or older (1 - Risk 50-74 years 1-dose series) 2012 Mammogram 05/28/2024 05/28/2023, 08/04, 08/16/2020, Additional history exists Diabetes: Hemoglobin A1C 04/27/2025 025, 10/31/2024, 07/09/2024, Additional history exists Diabetes: Foot Exam 07/09/2025 07/09/2024, 07/09/2024, 07/09/2024, Additional history exists SDOH Screening 08/30/2025 08/30/2024 Alcohol/Substance Use Screening 09/14/2025 09/14/2024 Diabetes: Urine Protein Screening 09/25/2025 09/25/2024, 08/20/2021, 08/20/2021 Lipid Panel 09/25/2025 09/25/2024, 07/09/2024 Depression Monitoring 11/24/2025 05/27/2025, 025 Disability Screening 03/05/2026 03/05/2025 Cervical Cancer Screening 03/31/2026 HPV/Cotest 03/31/2026 03/31/2021 Pap Smear 03/31/2026 03/31/2021 Tobacco Screening 04/24/2026 04/24/2025 Eye Exam 05/08/2026 05/08/2025 Colonoscopy 08/25/2033 08/25/2023, 02/20/2015 Colorectal Cancer Screening 08/25/2033 DTaP/Tdap/Td Vaccines (3 - Td or Tdap) [...] on patient's age to complete this topic Goals Goal Patient Goal Type Associated Problems [...] chronic kidney disease No Katherine Casper RN Procedures Procedure Name Priority Date/Time Associated Diagnosis Comments HM DIABETES EYE EXAM Routine 05/08/2025 1:54 PM EST POCT GLYCATED HEMOGLOBIN, TOTAL Routine 01/25/2025 4:11 PM EDT Type 2 diabetes mellitus without complication, without long-term current use of insulin ([facility]) ALBUMIN, RANDOM URINE W/CREATININE Routine 09/25/2024 3:50 PM EDT LIPID PANEL, STANDARD Routine 09/25/2024 3:47 PM EDT BI MAMMOGRAM SCREENING TOMOSYNTHESIS BILATERAL Routine 05/28/2023 8:58 AM EST HPV MRNA E6/E7 Routine 03/31/2021 9:06 AM EDT THINPREP PAP Routine 03/31/2021 9:06 AM EDT COLONOSCOPY Routine 02/20/2015 from Last 3 Months or Most Recently Relevant to Health Maintenance Results * Diabetes Eye Exam (05/08/2025 1:54 PM EST) [facility] Provider MD HEALTH MAINTENANCE Final Result * (ABNORMAL) POCT A1C (01/25/2025 4:11 PM EDT) Hemoglobin A1C 7.1(A) 4.0 - 5.7 % QC Media Lot # [id number] Lot# Expiration Date Blood 01/25/2025 4:11 PM EDT Joyce Tapia MD POINT OF CARE TEST ENTER/EDIT OR DERABLES Final Result * Albumin, Random Urine W/Creatinine (09/25/2024 3:50 PM EDT) Creatinine, Urine 83.95 mg/dL [facility] Microalbumin Urine <5.0 mg/L [facility] Microalbum Creatinine Ratio Ur TNP <30 ug/mg cr [facility] Comment:Unable to calculate albumin/creatinine ratio due to lowmicroalbumin or creatinine result. 09/25/2024 3:50 PM EDT 09/25/2024 5:55 PM EDT Joyce Tapia MD LAB URINE ORDERABLES Final Resul t [facility] [address] [place] [address] [phone] * Lipid Panel, Standard (09/25/2024 3:47 PM EDT) Triglycerides 56 <150 mg/dL [facility] Comment:Desirable Triglyceri de: less than 150 mg/dLBorderline High Triglyceride 150-199 mg/dLHigh Triglyceride: 200-499 mg/dLVery High Triglyceride: greater than or equal to 5OO mg/dL Cholesterol 119 <200 mg/dL [facility] Comment:Desirable Cholestero l: less than 200 mg/dLBorderline High Cholesterol: 200-239 mg/dLHigh Cholesterol: greater than 239 mg/dL LDL Cholesterol Calculated 47 <100 mg/dL [facility] Comment:Desirable LDL: less than 100 mg/dLNear Optimal/Above Optimal LDL: 110- 129 mg/dLBorderline High LDL: 130-159 mg/dLHigh LDL: 160-189 mg/dLVery High LDL: greater than or equal to 190 mg/dL HDL Cholesterol 61 >40 mg/dL [facility] Comment:Desirable HDL: great er than 40 mg/dL Note: This HDL assay may give artificially low results in patients with liver disease. 09/25/2024 3:47 PM EDT 09/25/2024 6:08 PM EDT Joyce Tapia MD LAB BLOOD ORDERABLES Final Resul t [facility] [address] [place] [address] [phone] * BI Mammogram Screening Tomosynthesis Bilateral (05/28/2023 8:58 AM EST) Anatomical Region Laterality Modality Breast Bilateral Mammography 05/28/2023 8:58 AM EST Narrative 06/03/2023 8:41 AM EST [facility] [address] [place] [address] Mammography Report Signed Patient: Nayely Grover MR#: [id number] : 1960 Acct:[id number] Age/Sex: 62 / F ADM Date: 05/28/23 Loc: HO.MAMMO Attending Dr: Joyce Tapia MD Ordering Physician: Joyce Tapia MD Results: 1Negati ve Date of Service: 05/28/23 Follow Up: 1 Year From Orig inal Mammogram Procedure(s): MM tomosynthesis screening BI Accession Number(s): [id number] cc: Joyce Tapia MD EXAMINATION: MM SCREENING [...] in OV> 06/03/23 0837 DD/ 0858 TD/TT: Theater Technician: Procedure Note Donotuseinterpreter, Image - 06/03/2023 Sorin [facility] [address] [place], [place] [address] Mammography Report Signed Patient: Nayely GroverMR#: [id number] : 1960Acct:[id number] Age/Sex: 62 / FADM Date: 05/28/23 Loc: VISHNU Attending Dr: Joyce Tapia MD Ordering Physician: Joyce Tapia MDResults: 1Negati ve Date of Service: 05/28/23Follow Up: 1 Year From Orig inal Mammogram Procedure(s): MM tomosynthesis screening BI Accession Number(s): [id number] cc: Joyce Tapia MD EXAMINATION: MM SCREENING [...] in OV> 06/03/23 0837 DD/ 0858 TD/TT: Theater Technician: Joyce Tapia MD IMG BI PROCEDURES Final [...] along with historic and current clinical information. [employer] Supervisor : SEE COMMENT [facility] Comment: JXM, CT(ASCP) CT screening location: [address] [address] Interpretation/R esult: Negative for intraepithelial lesion or malignancy. [facility] LMP: NONE GIVEN [facility] Prev. BX: NONE GIVEN [facility] Prev. PAP: 12/2016 NIL/NEG [facility] SOURCE: None given [facility] Statement Of Adequacy: SEE COMMENT [facility] Comment: Satisfactory for evaluation. Endocervical/transformation zone component absent. Age and/or menstrual status not provided 03/31/2021 9:06 AM EDT Noa MARINO LAB PATHOLOGY ORDERABLES Final Result Performing Organization Address [facility] de Phone Number [facility] [address] [place] [address], * HPV mRNA E6/E7 (03/31/2021 9:06 AM EDT) HPV nRNA E6/E7 Not Detected Not Detected [facility] Comment: Methodology: Appointment Scheduler-Mediated Amplification This assay detects E6/E7 viral messenger RNA (mRNA) from 14 high-risk HPV types (16,18,31,33,35,39,45,51,52,56,58,59,66,68). The analytical performance characteristics of this assay have been determined by [employer]. The modifications have not been cleared or approved by the FDA. This assay has been validated pursuant to the CLIA regulations and is used for clinical purposes. For additional information, please refer to http://education.[employer]/faq/OOG174d2 (This link if provided for information/ educational purposes only.) 03/31/2021 9:06 AM EDT Noa De Santiago [facility] LAB BLOOD ORDERABLES Patt l Result Performing Organization Address [facility] Co de Phone Number [facility] [address] [place] [address], * Hm Colonoscopy (02/20/2015) Colonoscopy Normal Normal Narrative Zohra Benavidez - 02/20/2015 Repeat in 10 year Historical Provider MD HEALTH MAINTENANCE Final Result from Last 3 Months or Most Recently Relevant to Health Maintenance Additional Health Concerns Active Problems Noted Date Diagnosed Date Help patients manage their type 2 diabetes 06/03 Weekly blood pressure task 06/03/2025 Help patients manage their type 2 diabetes 06/03 Patient has chronic kidney disease 06/03/2025 Weekly blood pressure task 06/03/2025 Patient has chronic kidney disease 06/03/2025 Insurance [facility] C3 Care Teams Assistant Scientist Relationship Specialty Start Date End Date Jenny Schmidt MD [address] [place] [address] PCP - General Family Medicine 05/02/25 Cristal Muhammad PharmD [address] [place] [address] Pharmacist Pharmacy 08/07/24 Alan Torres, MAKEDA [address] [place] [address] [place] [id number] Registered Nurse Family Medicine 05/06/25 Kaylene Luo 05/06/25
--- OUTSIDE RECORDS SUMMARY | 2025-06-08 10:11 | XMS_ITS | Encounter Summary ---
Author Organization [employer] Address [address] [facility] [address] [place] [address] Care Team Providers Care Doper Name Role Phone Joyce Tapia MD Primary Care Provider [phone] Cristal Muhammad PharmD Unavailable [phone] Jenny Schmidt MD Primary Care Provider [phone] Alan Torres RN Unavailable [phone] Kaylene Luo Unavailable Reason for Visit * Reason Comments Med Refill Encounter Details Date Type Department Care Team (Late st Contact Info) Description 10/24/2023 Refill [facility] [address] [place] [address] Joyce Tapia MD [address] [place] [address] Status post surgical removal of nail matrix [...] Description 06/10/2025 11:15 AM EST Office Visit [facility] [address] [place] [address] Jenny Schmidt MD [address] [place], [place] 07/29/2025 10:00 AM EST Medication Management [facility] [address] [place], [place] [phone] Cristal Muhammad PharmD [address] [place] [address] 08/20/2025 10:00 AM EST Clinical Support [facility] [address] [place], [place] [phone] Katherine Casper RN [address] [place], [place] documented as of this encounter Visit Diagnoses Diagnosis Status post surgical removal of nail matrix of toe of left foot documented in this encounter Care Teams Doper Relationship Specialty Start Date End Date Joyce Tapia MD [address] [place] [address] PCP - General Family Medicine 06/19/12 05/01/25 Jenny Schmidt MD [address] [place] [address] PCP - General Family Medicine 05/02/25 Cristal Muhammad, Deonte [address] [place] [address] Pharmacist Pharmacy 08/07/24 Alan Torres, MAKEDA [address] [place] [address] Registered Nurse Family Medicine 05/06/25 Kaylene Luo 05/06/25 documented as of this encounter
--- OUTSIDE RECORDS SUMMARY | 2025-06-08 10:11 | XMS_ITS | Encounter Summary ---
Author Organization [employer] Address 75 [facility] 7t [place] [address] Care Team Providers Care Child Neurologist Name Role Phone Cristal Muhammad PharmD Unavailable [phone] Jenny Schmidt MD Primary Care Provider [phone] Alan Torres RN Unavailable [phone] Kaylene Luo Unavailable Reason for Visit * Reason Onset Date Comments Med Refill 06/01/2025 Encounter Details Date Type Department Care Team (Late st Contact Info) Description 06/01/[address] [facility] MEDICINE [address] [place] [address] Jenny Schmidt MD [address] [place] [address] Status post surgical removal of nail matrix [...] Upcoming Encounters Date Type Department Care Team ([facility] st Contact Info) Description 06/10/2025 11:15 AM EST Office Visit [facility] CHC MED & PEDS [address] [place] [address] Jenny Schmidt MD 505 [place] [address] 07/29/2025 10:00 AM EST Medication Management [facility] MED & PEDS [address] [place] [address] Cristal Muhammad PharmD [address] [place] [address] 08/20/2025 10:00 AM EST Clinical Support [facility] MED & PEDS [address] [place] [address] Katherine Casper, MAKEDA [address] [place] [address] documented as of this encounter Visit Diagnoses Diagnosis Status post surgical removal of nail matrix of toe of left foot documented in this encounter Additional Health Concerns Assessment Noted Time PHQ-9 Depression Total Score: 11 025 10:25 AM EST documented as of this encounter Care Teams Child Neurologist Relationship Specialty Start Date End Date Jenny Schmidt MD [address] [place] [address] PCP - General Family Medicine 05/02/25 Cristal Muhammad PharmD [address] [place] [address] Pharmacist Pharmacy 08/07/24 Alan Torres, MAKEDA [address] [place] [address] Registered Nurse Family Medicine 05/06/25 Kaylene Luo 05/06/25 documented as of this encounter
--- OUTSIDE RECORDS SUMMARY | 2025-06-08 10:11 | XMS_ITS | Encounter Summary ---
Author Organization [employer] Address 75 [facility] 7t [place] [address] Care Team Providers Care International Bank Manager Name Role Phone Joyce Tapia MD Primary Care Provider [phone] Cristal Muhammad PharmD Unavailable [phone] Jenny Schmidt MD Primary Care Provider [phone] Alan Torres RN Unavailable [phone] Kaylene Luo Unavailable Reason for Visit * Reason Onset Date Comments Med Refill 04/08/2025 Encounter Details Date Type Department Care Team (Late st Contact Info) Description 04/08/2025 Refill [facility] CHC MED & PEDS [address] [place], [place] [phone] Ayden Orellana MD 505 [place], [place] [phone] Status post surgical removal of nail matrix [...] ([facility] st Contact Info) Description 06/10/2025 11:15 AM EST Office Visit [facility] MED & PEDS [address] [place] [address] Jenny Schmidt MD [address] [place] [address] 07/29/2025 10:00 AM EST Medication Management [facility] MED & PEDS [address] [place] [address] Cristal Muhammad, PharmD 230 [place] [address] 08/20/2025 10:00 AM EST Clinical Support [facility] MED & PEDS [address] [place] [address] Katherine Casper, MAKEDA 505 [place] [address] documented as of this encounter Visit Diagnoses Diagnosis Status post surgical removal of nail matrix of toe of left foot documented in this encounter Additional Health Concerns Assessment Noted Time PHQ-9 Depression Total Score: 7 09/15/19 25 9:02 AM EDT documented as of this encounter Care Teams International Bank Manager Relationship Specialty Start Date End Date Joyce Tapia MD [address] [place] [address] PCP - General Family Medicine 06/19/12 05/01/25 Jenny Schmidt MD [address] [place] [address] PCP - General Family Medicine 05/02/25 Cristal Muhammad PharmD [address] [place] [address] Pharmacist Pharmacy 08/07/24 Alan Torres, MAKEDA 505 [place] [address] Registered Nurse Family Medicine 05/06/25 Kaylene Luo 05/06/25 documented as of this encounter
--- OUTSIDE RECORDS SUMMARY | 2025-06-08 10:11 | XMS_ITS | Encounter Summary ---
Author Organization [email or web address] Address 75 [facility] 7t [place] [address] Care Team Providers Care Tube Lancer Name Role Phone Joyce Tapia MD Primary Care Provider [phone] Cristal Muhammad PharmD Unavailable [phone] Jenny Schmidt MD Primary Care Provider [phone] Alan Torres RN Unavailable [phone] Kaylene Luo Unavailable Reason for Visit * Reason Onset Date Comments Med Refill 07/19/2024 Encounter Details Date Type Department Care Team (Late st Contact Info) Description 07/19/2024 Refill [facility] CHC MED & PEDS [address] [place], [place] [phone] Joyce Tapia MD 505 [place], [place] [phone] Social History Tobacco Use Types Packs/Day Years [...] [facility] MED & PEDS [address] [place] [address] Jenny Schmidt MD [address] [place] [address] 07/29/2025 10:00 AM EST Medication Management [facility] MED & PEDS [address] [place] [address] Cristal Muhammad PharmD 230 [place] [address] 08/20/2025 10:00 AM EST Clinical Support [facility] MED & PEDS [address] [place] [address] Katherine Casper, MAKEDA [address] [place] [address] documented as of this encounter Visit Diagnoses Not on filedocumented in this encounter Care Teams Tube Lancer Relationship Specialty Start Date End Date Joyce Tapia MD [address] [place] [address] PCP - General Family Medicine 06/19/12 05/01/25 Jenny Schmidt MD [address] [place] [address] PCP - General Family Medicine 05/02/25 Cristal Muhammad PharmD [address] [place] [address] Pharmacist Pharmacy 08/07/24 Alan Torres, MAKEDA 505 [place] [address] Registered Nurse Family Medicine 05/06/25 Kaylene Luo 05/06/25 documented as of this encounter
--- OUTSIDE RECORDS SUMMARY | 2025-06-08 10:12 | XMS_ITS | Encounter Summary ---
Author Organization [employer] Address 75 [facility] 7t [place] [address] Care Team Providers Care Gas Engine Operator Generators Name Role Phone Joyce Tapia MD Primary Care Provider [phone] Cristal Muhammad PharmD Unavailable [phone] Jenny Schmidt MD Primary Care Provider [phone] Alan Torres RN Unavailable [phone] Kaylene Luo Unavailable Reason for Visit * Reason Onset Date Comments Med Refill 09/17/2024 Encounter Details Date Type Department Care Team (Late st Contact Info) Description 09/17/2024 Refill [facility] CHC MED & PEDS [address] [place], [place] [phone] Emerson Keith MD 505 [place], [place] [phone] Status post surgical removal of nail matrix [...] ([facility] st Contact Info) Description 06/10/2025 11:15 AM EST Office Visit [facility] MED & PEDS [address] [place] [address] Jenny Schmidt MD 505 [place] [address] 07/29/2025 10:00 AM EST Medication Management [facility] MED & PEDS [address] [place] [address] Cristal Muhammad, PharmD [address] [place] [address] 08/20/2025 10:00 AM EST Clinical Support [facility] MED & PEDS [address] [place] [address] Katherine Casper, MAKEDA 505 [place] [address] documented as of this encounter Visit Diagnoses Diagnosis Status post surgical removal of nail matrix of toe of left foot documented in this encounter Additional Health Concerns Assessment Noted Time PHQ-9 Depression Total Score: 7 09/15/19 25 9:02 AM EDT documented as of this encounter Care Teams Gas Engine Operator Generators Relationship Specialty Start Date End Date Jyoce Tapia MD [address] [place] [address] PCP - General Family Medicine 06/19/12 05/01/25 Jenny Schmidt MD [address] [place] [address] PCP - General Family Medicine 05/02/25 Cristal Muhammad PharmD [address] [place] [address] Pharmacist Pharmacy 08/07/24 Alan Torres, MAKEDA 505 [place] [address] Registered Nurse Family Medicine 05/06/25 Kaylene Luo 05/06/25 documented as of this encounter
--- OUTSIDE RECORDS SUMMARY | 2025-06-08 10:12 | XMS_ITS | Encounter Summary ---
Author Organization [employer] Address 75 [facility] 7t [place] [address] Care Team Providers Care Brood Station Manager Name Role Phone Joyce Tapia MD Primary Care Provider [phone] Cristal Muhammad PharmD Unavailable [phone] Jenny Schmidt MD Primary Care Provider [phone] Alan Torres RN Unavailable [phone] Kaylene Luo Unavailable Reason for Visit * Reason Onset Date Comments Med Refill 12/02/2024 Encounter Details Date Type Department Care Team (Late st Contact Info) Description 12/02/2024 Refill [facility] MEDICINE [address] [place] [address] Joyce Tapia MD [address] [place], [place] [phone] Status post surgical removal of nail matrix [...] Description 06/10/2025 11:15 AM EST Office Visit [facility] MED & PEDS 505 [place] [address] Jenny Schmidt MD [address] [place] [address] 07/29/2025 10:00 AM EST Medication Management [facility] MED & PEDS [address] [place] [address] Cristal Muhammad, BobD [address] [place] [address] 08/20/2025 10:00 AM EST Clinical Support [facility] MED & PEDS [address] [place] [address] Katherine Casper, MAKEDA [address] [place] [address] documented as of this encounter Visit Diagnoses Diagnosis Status post surgical removal of nail matrix of toe of left foot documented in this encounter Additional Health Concerns Assessment Noted Time PHQ-9 Depression Total Score: 7 09/15/19 25 9:02 AM EDT documented as of this encounter Care Teams Brood Station Manager Relationship Specialty Start Date End Date Joyce Tapia MD [address] [place] [address] PCP - General Family Medicine 06/19/12 05/01/25 Jenny Schmidt MD [address] [place] [address] PCP - General Family Medicine 05/02/25 Cristal Muhammad PharmD [address] [place] [address] Pharmacist Pharmacy 08/07/24 Alan Torres, MAKEDA [address] [place] [address] Registered Nurse Family Medicine 05/06/25 Kaylene Luo 05/06/25 documented as of this encounter
--- OUTSIDE RECORDS SUMMARY | 2025-06-08 10:12 | XMS_ITS | Encounter Summary ---
Author Organization [employer] Address 75 [facility] 7t [place] [address] Care Team Providers Care Main Galley Scullion Name Role Phone Joyce Tapia MD Primary Care Provider [phone] Cristal Muhammad PharmD Unavailable [phone] Jenny Schmidt MD Primary Care Provider [phone] Alan Torres RN Unavailable [phone] Kaylene Luo Unavailable Reason for Visit * Reason Onset Date Comments Med Refill 06/05/2024 Encounter Details Date Type Department Care Team (Late st Contact Info) Description 06/05/2024 Refill [facility] MEDICINE [address] [place] [address] Joyce Tapia MD [address] [place], [place] [phone] Status post surgical removal of nail matrix [...] 11:15 AM EST Office Visit [facility] MED & PEDS [address] [place] [address] Jenny Schmidt MD 505 [place] [address] 07/29/2025 10:00 AM EST Medication Management [facility] MED & PEDS [address] [place] [address] Cristal Muhammad PharmD 230 [place] [address] 08/20/2025 10:00 AM EST Clinical Support [facility] MED & PEDS [address] [place] [address] Katherine Casper, MAKEDA 505 [place] [address] documented as of this encounter Visit Diagnoses Diagnosis Status post surgical removal of nail matrix of toe of left foot documented in this encounter Care Teams Main Galley Scullion Relationship Specialty Start Date End Date Joyce Tapia MD [address] [place] [address] PCP - General Family Medicine 06/19/12 05/01/25 Jenny Schmidt MD [address] [place] [address] PCP - General Family Medicine 05/02/25 Cristal Muhammad PharmD 230 [place] [address] Pharmacist Pharmacy 08/07/24 Alan Torres, MAKEDA 505 [place] [address] Registered Nurse Family Medicine 05/06/25 Kaylene Luo 05/06/25 documented as of this encounter
--- OUTSIDE RECORDS SUMMARY | 2025-06-08 10:12 | XMS_ITS | Encounter Summary ---
Author Organization [employer] Address 75 [facility] 7t [place] [address] Care Team Providers Care Automatic Grinding Machine Operator Name Role Phone Cristal Muhammad PharmD Unavailable [phone] Jenny Schmidt MD Primary Care Provider [phone] Alan Torres RN Unavailable [phone] Kaylene Luo Unavailable Reason for Visit * Reason Onset Date Comments Med Refill 05/15/2025 Encounter Details Date Type Department Care Team ([facility] Contact Info) Description 05/15/2025 Refill [facility] CHC MED & PEDS 505 [place], [place] [phone] Joyce Tapia MD 505 [place], [place] [phone] Pain Social History Tobacco Use Types Packs/Day [facility] Description 06/10/2025 11:15 AM EST Office Visit [facility] MED & PEDS [address] [place] [address] Jenny Schmidt MD 505 [place] [address] 07/29/2025 10:00 AM EST Medication Management [facility] MED & PEDS [address] [place] [address] Cristal Muhammad, BobD [address] [place], [place] [phone] 08/20/2025 10:00 AM EST Clinical Support [facility] MED & PEDS [address] [place] [address] Katherine Casper, MAKEDA 505 [place] [address] documented as of this encounter Visit Diagnoses Diagnosis Pain Generalized pain documented in this encounter Additional Health Concerns Assessment Noted Time PHQ-9 Depression Total Score: 7 09/15/19 25 9:02 AM EDT documented as of this encounter Care Teams Automatic Grinding Machine Operator Relationship Specialty Start Date End Date Jenny Schmidt MD [address] [place] [address] PCP - General Family Medicine 05/02/25 Cristal Muhammad PharmD [address] [place] [address] Pharmacist Pharmacy 08/07/24 Alan Torres, MAKEDA 505 [place] [address] Registered Nurse Family Medicine 05/06/25 Kaylene Luo 05/06/25 documented as of this encounter
--- OUTSIDE RECORDS SUMMARY | 2025-06-08 10:12 | XMS_ITS | Encounter Summary ---
Author Organization [employer] Address 75 [facility] 7t [place] [address] Care Team Providers Care Rn Anesthetist Name Role Phone Joyce Tapia MD Primary Care Provider [phone] Cristal Muhammad PharmD Unavailable [phone] Jenny Schmidt MD Primary Care Provider [phone] Alan Torres RN Unavailable [phone] Kaylene Luo Unavailable Reason for Visit * Reason Onset Date Comments Med Refill 04/25/2024 Encounter Details Date Type Department Care Team (Late st Contact Info) Description 04/25/2024 Telephone [facility] MEDICINE [address] [place] [address] Joyce Tapia MD [address] [place], [place] [phone] Med Refill Social History Tobacco Use Types [...] (Roxicodone) 5 MG To be sent to: [facility] documented in this encounter Plan of Treatment Upcoming Encounters Date Type Department Care Team ([facility] st Contact Info) Description 06/10/2025 11:15 AM EST Office Visit [facility] MED & PEDS [address] [place] [address] Jenny Schmidt MD 505 [place] [address] 07/29/2025 10:00 AM EST Medication Management [facility] MED & PEDS [address] [place] [address] Cristal Muhammad, PharmD [address] [place] [address] 08/20/2025 10:00 AM EST Clinical Support [facility] MED & PEDS [address] [place] [address] Katherine Casper, MAKEDA 505 [place] [address] documented as of this encounter Visit Diagnoses Not on filedocumented in this encounter Care Teams Rn Anesthetist Relationship Specialty Start Date End Date Joyce Tapia MD [address] [place] [address] PCP - General Family Medicine 06/19/12 05/01/25 Jenny Schmidt MD [address] [place] [address] PCP - General Family Medicine 05/02/25 Cristal Muhammad PharmD [address] [place] [address] Pharmacist Pharmacy 08/07/24 Alan Torres, MAKEDA 505 [place] [address] Registered Nurse Family Medicine 05/06/25 Kaylene Luo 05/06/25 documented as of this encounter
--- OUTSIDE RECORDS SUMMARY | 2025-06-08 10:12 | XMS_ITS | Encounter Summary ---
Author Organization [employer] Address 75 [facility] 7t [place] [address] Care Team Providers Care Carbider Name Role Phone Joyce Tapia MD Primary Care Provider [phone] Cristal Muhammad PharmD Unavailable [phone] Jenny Schmidt MD Primary Care Provider [phone] Alan Torres RN Unavailable [phone] Kaylene Luo Unavailable Encounter Details Date Type Department Care Team ([facility] st Contact Info) Description 10/26/2022 Orders Only [facility] CHC MED & PEDS [address] [place], [place] [phone] Emerson Keith MD 505 [place], [place] [phone] Social History Tobacco Use Types Packs/Day Years [...] 11:15 AM EST Office Visit [facility] MED & PEDS [address] [place] [address] Jenny Schmidt MD [address] [place], [place] 07/29/2025 10:00 AM EST Medication Management [facility] MED & PEDS [address] [place], [place] [phone] Cristal Muhammad PharmD [address] [place] [address] 08/20/2025 10:00 AM EST Clinical Support [facility] MED & PEDS [address] [place], [place] [phone] Katherine Casper RN [address] [place], [place] documented as of this encounter Visit Diagnoses Not on filedocumented in this encounter Care Teams Carbider Relationship Specialty Start Date End Date Joyce Tapia MD [address] [place] [address] PCP - General Family Medicine 06/19/12 05/01/25 Jenny Schmidt MD [address] [place], [place] PCP - General Family Medicine 05/02/25 Cristal Muhammad, PharmD [address] [place] [address] Pharmacist Pharmacy 08/07/24 Alan Torres, MAKEDA [address] [place], [place] Registered Nurse Family Medicine 05/06/25 Kaylene Luo 05/06/25 documented as of this encounter
--- OUTSIDE RECORDS SUMMARY | 2025-06-08 10:12 | XMS_ITS | Encounter Summary ---
Author Organization [employer] Address 75 [facility] 7t [place] [address] Care Team Providers Care Battery Hand Name Role Phone Joyce Tapia MD Primary Care Provider [phone] Cristal Muhammad PharmD Unavailable [phone] Jenny Schmidt MD Primary Care Provider [phone] Alan Torres RN Unavailable [phone] Kaylene Luo Unavailable Reason for Visit * Reason Onset Date Comments Med Refill 02/28/2024 Encounter Details Date Type Department Care Team (Late st Contact Info) Description 02/28/2024 Telephone [facility] MEDICINE [address] [place] [address] Joyce Tapia MD [address] [place], [place] [phone] Med Refill Social History Tobacco Use Types [...] immediate release tablet To be sent to: [facility] - [address] documented in this encounter Plan of Treatment Upcoming Encounters Date Type Department Care Team ([facility] st Contact Info) Description 06/10/2025 11:15 AM EST Office Visit [facility] MED & PEDS [address] [place] [address] Jenny Schmidt MD [address] [place] [address] 07/29/2025 10:00 AM EST Medication Management [facility] MED & PEDS [address] [place] [address] Cristal Muhammad, PharmD [address] [place] [address] 08/20/2025 10:00 AM EST Clinical Support [facility] MED & PEDS [address] [place] [address] Katherine Casper, MAKEDA [address] [place] [address] documented as of this encounter Visit Diagnoses Not on filedocumented in this encounter Care Teams Battery Hand Relationship Specialty Start Date End Date Joyce Tapia MD [address] [place] [address] PCP - General Family Medicine 06/19/12 05/01/25 Jenny Schmidt MD [address] [place] [address] PCP - General Family Medicine 05/02/25 Cristal Muhammad PharmD [address] [place] [address] Pharmacist Pharmacy 08/07/24 Alan Torres, MAKEDA 505 [place] [address] Registered Nurse Family Medicine 05/06/25 Kaylene Luo 05/06/25 documented as of this encounter
--- OUTSIDE RECORDS SUMMARY | 2025-06-08 10:12 | XMS_ITS | Encounter Summary ---
Author Organization [employer] Address 75 [facility] 7t [place] [address] Care Team Providers Care Lightning Rod Erector Name Role Phone Joyce Tapia MD Primary Care Provider [phone] Cristal Muhammad PharmD Unavailable [phone] Jenny Schmidt MD Primary Care Provider [phone] Alan Torres RN Unavailable [phone] Kaylene Luo Unavailable Reason for Visit * Reason Comments Med Refill Encounter Details Date Type Department Care Team ([facility] st Contact Info) Description 03/27/2025 Refill [facility] MED & PEDS [address] [place], [place] [phone] Joyce Tapia MD [address] [place], [place] [phone] Pain Social History Tobacco Use Types Packs/Day [...] the past 12 months, has t he [place], gas, oil or water [employer] threatened to shut off services in your [...] [facility] MED & PEDS [address] [place] [address] Jenny Schmidt MD [address] [place] [address] 07/29/2025 10:00 AM EST Medication Management [facility] MED & PEDS [address] [place] [address] Cristal Muhammad, PharmD [address] [place] [address] 08/20/2025 10:00 AM EST Clinical Support [facility] MED & PEDS [address] [place] [address] Katherine Casper, MAKEDA [address] [place] [address] documented as of this encounter Visit Diagnoses Diagnosis Pain Generalized pain documented in this encounter Additional Health Concerns Assessment Noted Time PHQ-9 Depression Total Score: 7 09/15/19 25 9:02 AM EDT documented as of this encounter Care Teams Lightning Rod Erector Relationship Specialty Start Date End Date Joyce Tapia MD [address] [place] [address] PCP - General Family Medicine 06/19/12 05/01/25 Jenny Schmidt MD [address] [place] [address] PCP - General Family Medicine 05/02/25 Cristal Muhammad PharmD [address] [place] [address] Pharmacist Pharmacy 08/07/24 Alan Torres, MAKEDA [address] [place] [address] Registered Nurse Family Medicine 05/06/25 Kaylene Luo 05/06/25 documented as of this encounter
--- OUTSIDE RECORDS SUMMARY | 2025-06-08 10:12 | XMS_ITS | Encounter Summary ---
Author Organization [employer] Address 75 [facility] 7t [place] [address] Care Team Providers Care Time Study Observer Name Role Phone Joyce aTpia MD Primary Care Provider [phone] Cristal Muhammad PharmD Unavailable [phone] Jenny Schmidt MD Primary Care Provider [phone] Alan Torres RN Unavailable [phone] Kaylene Luo Unavailable Encounter Details Date Type Department Care Team (Late st Contact Info) Description 05/24/2023 Abstract [facility] MEDICINE [address] [place], [place] [phone] Zohra Benavidez Social History Tobacco Use Types [...] Department Care Team (Late Contact Info) Description 06/10/2025 11:15 AM EST Office Visit [facility] CHC MED & PEDS 505 [place], [place] [phone] Jenny Schmidt MD 505 [place], [place] [phone] 07/29/2025 10:00 AM EST Medication Management [facility] MED & PEDS [address] [place] [address] Cristal Muhammad PharmD [address] [place] [address] 08/20/2025 10:00 AM EST Clinical Support [facility] MED & PEDS 505 [place] [address] Katherine Casper, MAKEDA [address] [place], [place] documented as of this encounter Procedures Procedure Name Priority Date/Time Associated Diagnosis Comments COLONOSCOPY Routine 02/20/2015 documented in this encounter Results * Colonoscopy (02/20/2015) Colonoscopy Normal Normal Narrative Zohra Benavidez - 02/20/2015 Repeat in 10 year Historical Provider HEALTH MAINTENANCE Final Result documented in this encounter Visit Diagnoses Not on filedocumented in this encounter Care Teams Time Study Observer Relationship Specialty Start Date End Date Joyce Tapia MD [address] [place] [address] PCP - General Family Medicine 06/19/12 05/01/25 Jenny Schmidt MD [address] [place], [place] PCP - General Family Medicine 05/02/25 Cristal Muhammad, PharmD [address] [place] [address] Pharmacist Pharmacy 08/07/24 Alan Torres, MAKEDA [address] [place], [place] Registered Nurse Family Medicine 05/06/25 Kaylene Luo 05/06/25 documented as of this encounter
--- OUTSIDE RECORDS SUMMARY | 2025-06-08 10:12 | XMS_ITS | Encounter Summary ---
Author Organization [employer] Address 75 [facility] 7t [place] [address] Care Team Providers Care Sales Leader Name Role Phone Joyce Tapia MD Primary Care Provider [phone] Cristal Muhammad PharmD Unavailable [phone] Jenny Schmidt MD Primary Care Provider [phone] Alan Torres RN Unavailable [phone] Kaylene Luo Unavailable Reason for Visit * Reason Comments Med Refill Encounter Details Date Type Department Care Team (Late st Contact Info) Description 06/07/2023 Refill [facility] MED & PEDS [address] [place], [place] [phone] Ev Lewis, ANP 230 [place] [address] Status post surgical removal of nail matrix [...] Description 06/10/2025 11:15 AM EST Office Visit [facility] MED & PEDS 505 [place] [address] Jenny Schmidt MD 505 [place], [place] 07/29/2025 10:00 AM EST Medication Management [facility] MED & PEDS [address] [place], [place] [phone] Cristal Muhammad PharmD 230 [place] [address] 08/20/2025 10:00 AM EST Clinical Support [facility] MED & PEDS 505 [place], [place] [phone] Katherine Casper RN 505 [place], [place] documented as of this encounter Visit Diagnoses Diagnosis Status post surgical removal of nail matrix of toe of left foot documented in this encounter Care Teams Sales Leader Relationship Specialty Start Date End Date Joyce Tapia MD [address] [place] [address] PCP - General Family Medicine 06/19/12 05/01/25 Jenny Schmidt MD [address] [place] [address] PCP - General Family Medicine 05/02/25 Cristal Mhuammad, Deonte [address] [place] [address] Pharmacist Pharmacy 08/07/24 Alan Torres, MAKEDA [address] [place] [address] Registered Nurse Family Medicine 05/06/25 Kaylene Luo 05/06/25 documented as of this encounter
--- OUTSIDE RECORDS SUMMARY | 2025-06-08 10:12 | XMS_ITS | Encounter Summary ---
Author Organization [employer] Address 75 [facility] 7t [place] [address] Care Team Providers Care Counter Intelligence Name Role Phone Joyce Tapia MD Primary Care Provider [phone] Cristal Muhammad PharmD Unavailable [phone] Jenny Schmidt MD Primary Care Provider [phone] Alan Torres RN Unavailable [phone] Kaylene Luo Unavailable Reason for Visit * Reason Onset Date Comments Med Refill 04/05/2024 Encounter Details Date Type Department Care Team (Late st Contact Info) Description 04/05/2024 Refill [facility] MED & PEDS 505 [place], [place] [phone] Joyce Tapia MD 505 [place], [place] [phone] Status post surgical removal of nail matrix [...] [facility] MED & PEDS 505 [place] [address] Jenny Schmidt MD 505 [place] [address] 07/29/2025 10:00 AM EST Medication Management [facility] MED & PEDS 505 [place] [address] Cristal Muhammad PharmD 230 [place] [address] 08/20/2025 10:00 AM EST Clinical Support [facility] MED & PEDS 505 [place] [address] Katherine Casper, MAKEDA 505 [place] [address] documented as of this encounter Visit Diagnoses Diagnosis Status post surgical removal of nail matrix of toe of left foot documented in this encounter Care Teams Counter Intelligence Relationship Specialty Start Date End Date Joyce Tapia MD 230 [place] [address] PCP - General Family Medicine 06/19/12 05/01/25 Jenny Schmidt MD 505 [place] [address] PCP - General Family Medicine 05/02/25 Cristal Muhammad PharmD 230 [place] [address] Pharmacist Pharmacy 08/07/24 Alan Torres, MAKEDA 505 [place] [address] Registered Nurse Family Medicine 05/06/25 Kaylene Luo 05/06/25 documented as of this encounter
--- OUTSIDE RECORDS SUMMARY | 2025-06-08 10:12 | XMS_ITS | Encounter Summary ---
Author Organization [employer] Address 75 [facility] 7t [place] [address] Care Team Providers Care Stock Raiser Name Role Phone Joyce Tapia MD Primary Care Provider [phone] Cristal Muhammad PharmD Unavailable [phone] Jenny Schmidt MD Primary Care Provider [phone] Alan Torres RN Unavailable [phone] Kaylene Luo Unavailable Reason for Visit * Reason Comments Med Refill Encounter Details Date Type Department Care Team (Late st Contact Info) Description 10/11/2023 Refill [facility] MEDICINE 230 [place] [address] Ayden Orellana MD 505 [place], [place] [phone] Status post surgical removal of nail matrix [...] [facility] 505 [place] [address] Jenny Schmidt MD 505 [place], [place] 07/29/2025 10:00 AM EST Medication Management [facility] MED & PEDS 505 [place], [place] [phone] Cristal Muhammad PharmD 230 [place] [address] 08/20/2025 10:00 AM EST Clinical Support [facility] MED & PEDS [address] [place], [place] [phone] Katherine Casper RN 505 [place], [place] documented as of this encounter Visit Diagnoses Diagnosis Status post surgical removal of nail matrix of toe of left foot documented in this encounter Care Teams Stock Raiser Relationship Specialty Start Date End Date Joyce Tapia MD 230 [place] [address] PCP - General Family Medicine 06/19/12 05/01/25 Jenny Schmidt MD [address] [place] [address] PCP - General Family Medicine 05/02/25 Cristal Muhammad PharmD [address] [place] [address] Pharmacist Pharmacy 08/07/24 Alan Torres, MAKEDA [address] [place] [address] Registered Nurse Family Medicine 05/06/25 Kaylene Luo 05/06/25 documented as of this encounter
--- OUTSIDE RECORDS SUMMARY | 2025-06-08 10:12 | XMS_ITS | Encounter Summary ---
Author Organization [employer] Address 75 [facility] 7t [place] [address] Care Team Providers Care Systems Programmer Analyst Name Role Phone Joyce Tapia MD Primary Care Provider [phone] Cristal Muhammad PharmD Unavailable [phone] Jenny Schmidt MD Primary Care Provider [phone] Alan Torres RN Unavailable [phone] Kaylene Luo Unavailable Reason for Visit * Reason Comments Med Refill Encounter Details Date Type Department Care Team (Late st Contact Info) Description 06/06/2023 Refill [facility] MED & PEDS [address] [place], [place] [phone] Ev Lewis, ANP 230 [place] [address] Status post surgical removal of nail matrix [...] 11:15 AM EST Office Visit [facility] MED & PEDS 505 [place] [address] Jenny Schmidt MD 505 [place], [place] 07/29/2025 10:00 AM EST Medication Management [facility] MED & PEDS [address] [place], [place] [phone] Cristal Muhammad PharmD 230 [place] [address] 08/20/2025 10:00 AM EST Clinical Support [facility] MED & PEDS [address] [place], [place] [phone] Katherine Casper RN 505 [place], [place] documented as of this encounter Visit Diagnoses Diagnosis Status post surgical removal of nail matrix of toe of left foot documented in this encounter Care Teams Systems Programmer Analyst Relationship Specialty Start Date End Date Joyce Tapia MD [address] [place] [address] PCP - General Family Medicine 06/19/12 05/01/25 Jenny Schmidt MD [address] [place] [address] PCP - General Family Medicine 05/02/25 Cristal Muhammad, Deonte [address] [place] [address] Pharmacist Pharmacy 08/07/24 Alan Torres, MAKEDA [address] [place] [address] Registered Nurse Family Medicine 05/06/25 Kaylene Luo 05/06/25 documented as of this encounter
--- OUTSIDE RECORDS SUMMARY | 2025-06-08 10:12 | XMS_ITS | Encounter Summary ---
Author Organization [employer] Address 75 [facility] 7t [place] [address] Care Team Providers Care Occupational Nurse Name Role Phone Joyce Tapia MD Primary Care Provider [phone] Cristal Muhammad PharmD Unavailable [phone] Jenny Schmidt MD Primary Care Provider [phone] Alan Torres RN Unavailable [phone] Kaylene Luo Unavailable Encounter Details Date Type Department Care Team (Late Contact Info) Description 09/27/2022 Orders Only [facility] MEDICINE 230 [place], [place] [phone] Comfort Estrada LPN Social History Tobacco Use [...] Encounters Date Type Department Care Team ([facility] Contact Info) Description 06/10/2025 11:15 AM EST Office Visit [facility] MED & PEDS 505 [place] [address] Jenny Schmidt MD 505 [place], [place] 07/29/2025 10:00 AM EST Medication Management [facility] MED & PEDS [address] [place], [place] [phone] Cristal Muhammad PharmD 230 [place] [address] 08/20/2025 10:00 AM EST Clinical Support [facility] MED & PEDS [address] [place], [place] [phone] Katherine Casper RN 505 [place], [place] documented as of this encounter Visit Diagnoses Not on filedocumented in this encounter Care Teams Occupational Nurse Relationship Specialty Start Date End Date Joyce Tapia MD [address] [place] [address] PCP - General Family Medicine 06/19/12 05/01/25 Jenny Schmidt MD [address] [place] [address] PCP - General Family Medicine 05/02/25 Cristal Muhammad, BobD [address] [place] [address] Pharmacist Pharmacy 08/07/24 Alan Torres, MAKEDA [address] [place] [address] Registered Nurse Family Medicine 05/06/25 Kaylene Luo 05/06/25 documented as of this encounter
--- OUTSIDE RECORDS SUMMARY | 2025-06-08 10:12 | XMS_ITS | Encounter Summary ---
Author Organization [employer] Address 75 [facility] 7t [place] [address] Care Team Providers Care Advertising Internship Name Role Phone Joyce Tapia MD Primary Care Provider [phone] Cristal Muhammad PharmD Unavailable [phone] Jenny Schmidt MD Primary Care Provider [phone] Alan Torres RN Unavailable [phone] Kaylene Luo Unavailable Reason for Visit * Reason Onset Date Comments Med Refill 12/03/2024 Encounter Details Date Type Department Care Team (Late st Contact Info) Description 12/03/2024 Telephone [facility] MEDICINE 230 [place] [address] Joyce Tapia MD [address] [place], [place] [phone] Med Refill Social History Tobacco Use Types [...] tablet To be sent to: [facility] documented in this encounter Plan of Treatment Upcoming Encounters Date Type Department Care Team (Late st Contact Info) Description 06/10/2025 11:15 AM EST Office Visit [facility] MED & PEDS 505 [place] [address] Jenny Schmidt MD 505 [place] [address] 07/29/2025 10:00 AM EST Medication Management [facility] MED & PEDS 505 [place] [address] Cristal Muhammad, PharmD 230 [place] [address] 08/20/2025 10:00 AM EST Clinical Support [facility] MED & PEDS 505 [place] [address] Katherine Casper, MAKEDA 505 [place], [place] documented as of this encounter Visit Diagnoses Not on filedocumented in this encounter Additional Health Concerns Assessment Noted Time PHQ-9 Depression Total Score: 7 09/15/19 9:02 AM EDT documented as of this encounter Care Teams Advertising Internship Relationship Specialty Start Date End Date Joyce Tapia MD 230 [place] [address] PCP - General Family Medicine 06/19/12 05/01/25 Jenny Schmidt MD 505 [place] [address] PCP - General Family Medicine 05/02/25 Cristal Muhammad, Deonte 230 [place] [address] Pharmacist Pharmacy 08/07/24 Alan Torres, MAKEDA 505 [place] [address] Registered Nurse Family Medicine 05/06/25 Kaylene Luo 05/06/25 documented as of this encounter
--- OUTSIDE RECORDS SUMMARY | 2025-06-08 10:12 | XMS_ITS | Encounter Summary ---
Author Organization [employer] Address 75 [facility] 7t [place] [address] Care Team Providers Care Forensic Economist Name Role Phone Joyce Tapia MD Primary Care Provider [phone] Cristal Muhammad PharmD Unavailable [phone] Jenny Schmidt MD Primary Care Provider [phone] Alan Torres RN Unavailable [phone] Kaylene Luo Unavailable Reason for Visit * Reason Onset Date Comments Med Refill 05/30/2023 Encounter Details Date Type Department Care Team (Late st Contact Info) Description 05/30/2023 Telephone [facility] MEDICINE 230 [place] [address] Joyce Tapia MD [address] [place], [place] [phone] Med Refill Social History Tobacco Use Types [...] oxyCODONE (Roxicodone) 5 MG immediate release tablet [facility] - [address] documented in this encounter Plan of Treatment Upcoming Encounters Date Type Department Care Team (Late st Contact Info) Description 06/10/2025 11:15 AM EST Office Visit [facility] MED & PEDS [address] [place], [place] [phone] Jenny Schmidt MD [address] [place], [place] 07/29/2025 10:00 AM EST Medication Management [facility] MED & PEDS [address] [place], [place] [phone] Cristal Muhammad PharmD 230 [place] [address] 08/20/2025 10:00 AM EST Clinical Support [facility] MED & PEDS 505 [place] [address] Katherine Casper, MAKEDA 505 [place], [place] documented as of this encounter Visit Diagnoses Not on filedocumented in this encounter Care Teams Forensic Economist Relationship Specialty Start Date End Date Joyce Tapia MD 230 [place] [address] PCP - General Family Medicine 06/19/12 05/01/25 Jenny Schmidt MD 505 [place] [address] PCP - General Family Medicine 05/02/25 Cristal Muhammad PharmD 230 [place] [address] Pharmacist Pharmacy 08/07/24 Alan Torres RN [address] [place] [address] Registered Nurse Family Medicine 05/06/25 Kaylene Luo 05/06/25 documented as of this encounter
--- OUTSIDE RECORDS SUMMARY | 2025-06-08 10:12 | XMS_ITS | Encounter Summary ---
Author Organization [employer] Address 75 [facility] 7t [place] [address] Care Team Providers Care Geodetic Surveyor Name Role Phone Joyce Tapia MD Primary Care Provider [phone] Cristal Muhammad PharmD Unavailable [phone] Jenny Schmidt MD Primary Care Provider [phone] Alan Torres RN Unavailable [phone] Kaylene Luo Unavailable Reason for Visit * Reason Onset Date Comments Med Refill 02/25/2025 Encounter Details Date Type Department Care Team (Late st Contact Info) Description 02/25/2025 Refill [facility] MED & PEDS 505 [place], [place] [phone] Ayden Orellana MD 505 [place], [place] [phone] Status post surgical removal of nail matrix [...] Team ([facility] st Contact Info) Description 06/10/2025 11:15 AM EST Office Visit [facility] MED & PEDS 505 [place] [address] Jenny Schmidt MD 505 [place] [address] 07/29/2025 10:00 AM EST Medication Management [facility] MED & PEDS 505 [place] [address] Cristal Muhammad, PharmD 230 [place] [address] 08/20/2025 10:00 AM EST Clinical Support [facility] PED[facility] 505 [place] [address] Katherine Casper, MAKEDA 505 [place] [address] documented as of this encounter Visit Diagnoses Diagnosis Status post surgical removal of nail matrix of toe of left foot documented in this encounter Additional Health Concerns Assessment Noted Time PHQ-9 Depression Total Score: 7 09/15/19 25 9:02 AM EDT documented as of this encounter Care Teams Geodetic Surveyor Relationship Specialty Start Date End Date Joyce Tapia MD 230 [place] [address] PCP - General Family Medicine 06/19/12 05/01/25 Jenny Schmidt MD 505 [place] [address] PCP - General Family Medicine 05/02/25 Cristal Muhammad PharmD 230 [place] [address] Pharmacist Pharmacy 08/07/24 Alan Torres, MAKEDA 505 [place] [address] Registered Nurse Family Medicine 05/06/25 Kaylene Luo 05/06/25 documented as of this encounter
--- OUTSIDE RECORDS SUMMARY | 2025-06-08 10:12 | XMS_ITS | Encounter Summary ---
Author Organization [employer] Address 75 [facility] 7t [place] [address] Care Team Providers Care Well Drill Operator Name Role Phone Joyce Tapia MD Primary Care Provider [phone] Cristal Muhammad PharmD Unavailable [phone] Jenny Schmidt MD Primary Care Provider [phone] Alan Torres RN Unavailable [phone] Kaylene Luo Unavailable Reason for Visit * Reason Onset Date Comments Med Refill 05/08/2024 Encounter Details Date Type Department Care Team (Late st Contact Info) Description 05/08/2024 Refill [facility] MEDICINE 230 [place] [address] Joyce Tapia MD [address] [place], [place] [phone] Muscle spasm Social History Tobacco Use Types [...] Description 06/10/2025 11:15 AM EST Office Visit [facility] MED & PEDS 505 [place] [address] Jenny Schmidt MD 505 [place] [address] 07/29/2025 10:00 AM EST Medication Management [facility] MED & PEDS 505 [place] [address] Cristal Muhammad PharmD 230 [place] [address] 08/20/2025 10:00 AM EST Clinical Support [facility] MED & PEDS 505 [place] [address] Katherine Casper, MAKEAD 505 [place] [address] documented as of this encounter Visit Diagnoses Diagnosis Muscle spasm Spasm of muscle documented in this encounter Care Teams Well Drill Operator Relationship Specialty Start Date End Date Joyce Tapia MD 230 [place] [address] PCP - General Family Medicine 06/19/12 05/01/25 Jenny Schmidt MD 505 [place] [address] PCP - General Family Medicine 05/02/25 Cristal Muhammad PharmD 230 [place] [address] Pharmacist Pharmacy 08/07/24 Alan Torres, MAKEDA 505 [place] [address] Registered Nurse Family Medicine 05/06/25 Kaylene Luo 05/06/25 documented as of this encounter
--- OUTSIDE RECORDS SUMMARY | 2025-06-08 10:12 | XMS_ITS | Encounter Summary ---
Author Organization [employer] Address 75 [facility] 7t [place] [address] Care Team Providers Care Contractor Field Hauling Name Role Phone Joyce Tapia MD Primary Care Provider [phone] Cristal Muhammad PharmD Unavailable [phone] Jenny Schmidt MD Primary Care Provider [phone] Alan Torres RN Unavailable [phone] Kaylene Luo Unavailable Reason for Visit * Reason Onset Date Comments Med Refill 05/28/2024 Encounter Details Date Type Department Care Team (Late st Contact Info) Description 05/28/2024 Refill [facility] MED & PEDS 505 [place], [place] [phone] Joyce Tapia MD 505 [place], [place] [phone] Status post surgical removal of nail matrix [...] [facility] MED & PEDS 505 [place] [address] Jenny Schmidt MD 505 [place] [address] 07/29/2025 10:00 AM EST Medication Management [facility] MED & PEDS 505 [place] [address] Cristal Muhammad PharmD 230 [place] [address] 08/20/2025 10:00 AM EST Clinical Support [facility] MED & PEDS 505 [place] [address] Katherine Casper, MAKEDA 505 [place] [address] documented as of this encounter Visit Diagnoses Diagnosis Status post surgical removal of nail matrix of toe of left foot documented in this encounter Care Teams Contractor Field Hauling Relationship Specialty Start Date End Date Joyce Tapia MD 230 [place] [address] PCP - General Family Medicine 06/19/12 05/01/25 Jenny Schmidt MD 505 [place] [address] PCP - General Family Medicine 05/02/25 Cristal Muhammad PharmD 230 [place] [address] Pharmacist Pharmacy 08/07/24 Alan Torres, MAKEDA 505 [place] [address] Registered Nurse Family Medicine 05/06/25 Kaylene Luo 05/06/25 documented as of this encounter
--- OUTSIDE RECORDS SUMMARY | 2025-06-08 10:12 | XMS_ITS | Encounter Summary ---
Author Organization [employer] Address 75 [facility] 7t [place] [address] Care Team Providers Care Elevator Constructor Electric Name Role Phone Joyce Tapia MD Primary Care Provider [phone] Cristal Muhammad PharmD Unavailable [phone] Jenny Schmidt MD Primary Care Provider [phone] Alan Torres RN Unavailable [phone] Kaylene Luo Unavailable Reason for Visit * Reason Onset Date Comments Med Refill 05/21/2024 Encounter Details Date Type Department Care Team ([facility] st Contact Info) Description 05/21/2024 Refill [facility] MED & PEDS 505 [place], [place] [phone] Joyce Tapia MD 505 [place], [place] [phone] Social History Tobacco Use Types Packs/Day Years [...] Description 06/10/2025 11:15 AM EST Office Visit [facility] MED & PEDS 505 [place] [address] Jenny Schmidt MD 505 [place] [address] 07/29/2025 10:00 AM EST Medication Management [facility] MED & PEDS 505 [place] [address] Cristal Muhammad PharmD 230 [place] [address] 08/20/2025 10:00 AM EST Clinical Support [facility] MED & PEDS [address] [place] [address] Katherine Casper, MAKEDA 505 [place] [address] documented as of this encounter Visit Diagnoses Not on filedocumented in this encounter Care Teams Elevator Constructor Electric Relationship Specialty Start Date End Date Joyce Tapia MD 230 [place] [address] PCP - General Family Medicine 06/19/12 05/01/25 Jenny Schmidt MD 505 [place] [address] PCP - General Family Medicine 05/02/25 Cristal Muhammad PharmD [address] [place] [address] Pharmacist Pharmacy 08/07/24 Alan Torres, MAKEDA 505 [place] [address] Registered Nurse Family Medicine 05/06/25 Kaylene Luo 05/06/25 documented as of this encounter
--- OUTSIDE RECORDS SUMMARY | 2025-06-08 10:12 | XMS_ITS | Encounter Summary ---
Author Organization [employer] Address 75 [facility] 7t [place] [address] Care Team Providers Care Cold Roll Catcher Name Role Phone Joyce Tapia MD Primary Care Provider [phone] Cristal Muhammad PharmD Unavailable [phone] Jenny Schmidt MD Primary Care Provider [phone] Alan Torres RN Unavailable [phone] Kaylene Luo Unavailable Reason for Visit * Reason Onset Date Comments Med Refill 07/27/2024 Encounter Details Date Type Department Care Team (Late st Contact Info) Description 07/27/2024 Refill [facility] MEDICINE 230 [place] [address] Emerson Keith MD 505 [place], [place] [phone] Status post surgical removal of nail matrix [...] 11:15 AM EST Office Visit [facility] MED & PEDS 505 [place] [address] Jenny Schmidt MD 505 [place] [address] 07/29/2025 10:00 AM EST Medication Management [facility] MED & PEDS 505 [place] [address] Cristal Muhammad PharmD [address] [place] [address] 08/20/2025 10:00 AM EST Clinical Support [facility] MED & PEDS [address] [place] [address] Katherine Casper, MAEKDA 505 [place] [address] documented as of this encounter Visit Diagnoses Diagnosis Status post surgical removal of nail matrix of toe of left foot documented in this encounter Care Teams Cold Roll Catcher Relationship Specialty Start Date End Date Joyce Tapia MD 230 [place] [address] PCP - General Family Medicine 06/19/12 05/01/25 Jenny Schmidt MD 505 [place] [address] PCP - General Family Medicine 05/02/25 Cristal Muhammad PharmD 230 [place] [address] Pharmacist Pharmacy 08/07/24 Alan Torres, MAKEDA 505 [place] [address] Registered Nurse Family Medicine 05/06/25 Kaylene Luo 05/06/25 documented as of this encounter
--- OUTSIDE RECORDS SUMMARY | 2025-06-08 10:12 | XMS_ITS | Encounter Summary ---
Author Organization [employer] Address 75 [facility] 7t [place] [address] Care Team Providers Care Dock Pumper Name Role Phone Jocye Tapia MD Primary Care Provider [phone] Cristal Muhammad PharmD Unavailable [phone] Jenny Schmidt MD Primary Care Provider Alan Torres RN Unavailable [phone] Kaylene Luo Unavailable Reason for Visit * Reason Comments Med Refill Encounter Details Date Type Department Care Team (Late st Contact Info) Description 06/12/2023 Refill [facility] MED & PEDS 505 [place], [place] [phone] Christy Ray MD 505 [place], [place] [phone] Muscle spasm Social History Tobacco Use Types [...] Description 06/10/2025 11:15 AM EST Office Visit [facility] MED & PEDS 505 [place] [address] Jenny Schmidt MD 505 [place], [place] 07/29/2025 10:00 AM EST Medication Management [facility] MED & PEDS 505 [place], [place] [phone] Cristal Muhammad PharmD 230 [place], [place] 08/20/2025 10:00 AM EST Clinical Support [facility] MED & PEDS 505 [place], [place] [phone] Katherine Casper RN 505 [place], [place] documented as of this encounter Visit Diagnoses Diagnosis Muscle spasm Spasm of muscle documented in this encounter Care Teams Dock Pumper Relationship Specialty Start Date End Date Joyce Tapia MD 230 [place], [place] PCP - General Family Medicine 06/19/12 05/01/25 Jenny Schmidt MD [address] [place] [address] PCP - General Family Medicine 05/02/25 Cristal Muhammad PharmD 230 [place] [address] Pharmacist Pharmacy 08/07/24 Alan Torres, MAKEDA 505 [place], [place] Registered Nurse Family Medicine 05/06/25 Kaylene Luo 05/06/25 documented as of this encounter
--- OUTSIDE RECORDS SUMMARY | 2025-06-08 10:12 | XMS_ITS | Encounter Summary ---
Author Organization [employer] Address 75 [facility] 7t [place] [address] Care Team Providers Care Software Programmer Name Role Phone Joyce Tapia MD Primary Care Provider Cristal Muhammad PharmD Unavailable [phone] Jenny Schmidt MD Primary Care Provider [phone] Alan Torres RN Unavailable [phone] Kaylene Luo Unavailable Reason for Visit * Reason Onset Date Comments Med Refill 08/01/2024 Encounter Details Date Type Department Care Team (Late st Contact Info) Description 08/01/2024 Refill [place] [facility] MEDICINE 230 [place] [address] Emerson Keith MD 505 [place], [place] [phone] Status post surgical removal of nail matrix [...] Description 06/10/2025 11:15 AM EST Office Visit [facility] MED & PEDS 505 [place] [address] Jenny Schmidt MD 505 [place] [address] 07/29/2025 10:00 AM EST Medication Management [facility] MED & PEDS 505 [place] [address] Cristal Muhammad PharmD 230 [place] [address] 08/20/2025 10:00 AM EST Clinical Support [facility] MED & PEDS 505 [place] [address] Katherine Casper, MAKEDA 505 [place] [address] documented as of this encounter Visit Diagnoses Diagnosis Status post surgical removal of nail matrix of toe of left foot documented in this encounter Care Teams Software Programmer Relationship Specialty Start Date End Date Joyce Tapia MD 230 [place] [address] PCP - General Family Medicine 06/19/12 05/01/25 Jenny Schmidt MD 505 [place] [address] PCP - General Family Medicine 05/02/25 Cristal Muhammad PharmD 230 [place] [address] Pharmacist Pharmacy 08/07/24 Alan Torres, MAKEDA 505 [place] [address] Registered Nurse Family Medicine 05/06/25 Kaylene Luo 05/06/25 documented as of this encounter
--- OUTSIDE RECORDS SUMMARY | 2025-06-08 10:12 | XMS_ITS | Encounter Summary ---
Author Organization [employer] Address 75 [facility] 7t [place] [address] Care Team Providers Care Alteration Workroom Supervisor Name Role Phone Joyce Tapia MD Primary Care Provider [phone] Cristal Muhammad PharmD Unavailable [phone] Jenny Schmidt MD Primary Care Provider [phone] Alan Torres RN Unavailable [phone] Kaylene Luo Unavailable Reason for Visit * Reason Comments Med Refill Encounter Details Date Type Department Care Team (Late st Contact Info) Description 07/29/2023 Refill [facility] MEDICINE 230 [place] [address] Joyce Tapia MD [address] [place] [address] Status post surgical removal of nail matrix [...] Visit [facility] MED & PEDS 505 [place] [address] Jenny Schmidt MD 505 [place], [place] 07/29/2025 10:00 AM EST Medication Management [facility] MED & PEDS [address] [place], [place] [phone] Cristal Muhammad PharmD 230 [place] [address] 08/20/2025 10:00 AM EST Clinical Support [facility] MED & PEDS 505 [place], [place] [phone] Katherine Casper RN 505 [place], [place] documented as of this encounter Visit Diagnoses Diagnosis Status post surgical removal of nail matrix of toe of left foot documented in this encounter Care Teams Alteration Workroom Supervisor Relationship Specialty Start Date End Date Joyce Tapia MD [address] [place] [address] PCP - General Family Medicine 06/19/12 05/01/25 Jenny Schmidt MD [address] [place] [address] PCP - General Family Medicine 05/02/25 Cristal Muhammad, Deonte [address] [place] [address] Pharmacist Pharmacy 08/07/24 Alan Torres, MAKEDA [address] [place] [address] Registered Nurse Family Medicine 05/06/25 Kaylene Luo 05/06/25 documented as of this encounter
--- OUTSIDE RECORDS SUMMARY | 2025-06-08 10:12 | XMS_ITS | Encounter Summary ---
Author Organization [employer] Address 75 [facility] 7t [place] [address] Care Team Providers Care Net Lead Developer Name Role Phone Joyce Tapia MD Primary Care Provider [phone] Cristal Muhammad PharmD Unavailable [phone] Jenny Schmidt MD Primary Care Provider [phone] Alan Torres RN Unavailable [phone] Kaylene Luo Unavailable Reason for Visit * Reason Onset Date Comments Med Refill 03/24/2025 Encounter Details Date Type Department Care Team ([facility] st Contact Info) Description 03/24/2025 Refill [facility] CHC MED & PEDS 505 [place], [place] [phone] Ayden Orellana MD 505 [place], [place] [phone] Wheezing Social History Tobacco Use Types Packs/Day [...] the past 12 months, has t he [employer], gas, oil or water company threatened to [...] [facility] 505 [place] [address] Jenny Schmidt MD 505 [place] [address] 07/29/2025 10:00 AM EST Medication Management [facility] MED & PEDS 505 [place] [address] Cristal Muhammad, BobD 230 [place], [place] [phone] 08/20/2025 10:00 AM EST Clinical Support [facility] MED & PEDS 505 [place] [address] Katherine Casper, MAKEDA 505 [place] [address] documented as of this encounter Visit Diagnoses Diagnosis Wheezing documented in this encounter Additional Health Concerns Assessment Noted Time PHQ-9 Depression Total Score: 7 09/15/19 25 9:02 AM EDT documented as of this encounter Care Teams Net Lead Developer Relationship Specialty Start Date End Date Joyce Tapia MD 230 [place] [address] PCP - General Family Medicine 06/19/12 05/01/25 Jenny Schmidt MD 505 [place] [address] PCP - General Family Medicine 05/02/25 Cristal Muhammad PharmD 230 [place] [address] Pharmacist Pharmacy 08/07/24 Alan Torres, MAKEDA 505 [place] [address] Registered Nurse Family Medicine 05/06/25 Kaylene Luo 05/06/25 documented as of this encounter
--- OUTSIDE RECORDS SUMMARY | 2025-06-08 10:12 | XMS_ITS | Encounter Summary ---
Author Organization [employer] Address 75 [facility] 7t [place] [address] Care Team Providers Care Jewel Hole Finish Opener Name Role Phone Joyce Tapia MD Primary Care Provider [phone] Cristal Muhammad PharmD Unavailable [phone] Jenny Schmidt MD Primary Care Provider [phone] Alan Torres RN Unavailable [phone] Kaylene Luo Unavailable Reason for Visit * Reason Onset Date Comments Med Refill 10/25/2024 Encounter Details Date Type Department Care Team (Late st Contact Info) Description 10/25/2024 Refill [facility] MED & PEDS 505 [place], [place] [phone] Joyce Tapia MD 505 [place], [place] [phone] Social History Tobacco Use Types Packs/Day Years [...] the past 12 months, has t he [employer], gas, oil or water company threatened to [...] [facility] 505 [place] [address] Jenny Schmidt MD 505 [place] [address] 07/29/2025 10:00 AM EST Medication Management [facility] MED & PEDS 505 [place] [address] Cristal Muhammad, PharmD 230 [place], [place] [phone] 08/20/2025 10:00 AM EST Clinical Support [facility] MED & PEDS 505 [place] [address] Katherine Casper, MAKEDA 505 [place] [address] documented as of this encounter Visit Diagnoses Not on filedocumented in this encounter Additional Health Concerns Assessment Noted Time PHQ-9 Depression Total Score: 7 09/15/19 25 9:02 AM EDT documented as of this encounter Care Teams Jewel Hole Finish Opener Relationship Specialty Start Date End Date Joyce Tapia MD 230 [place] [address] PCP - General Family Medicine 06/19/12 05/01/25 Jenny Schmidt MD 505 [place] [address] PCP - General Family Medicine 05/02/25 Cristal Muhammad PharmD 230 [place] [address] Pharmacist Pharmacy 08/07/24 Alan Torres, MAKEDA 505 [place] [address] Registered Nurse Family Medicine 05/06/25 Kaylene Luo 05/06/25 documented as of this encounter
--- OUTSIDE RECORDS SUMMARY | 2025-06-08 10:12 | XMS_ITS | Encounter Summary ---
Author Organization [employer] Address 75 [facility] 7t [place] [address] Care Team Providers Care Stock Preparation Operator Name Role Phone Joyce Tapia MD Primary Care Provider [phone] Cristal Muhammad PharmD Unavailable [phone] Jenny Schmidt MD Primary Care Provider [phone] Alan Torres RN Unavailable [phone] Kaylene Luo Unavailable Reason for Visit * Reason Onset Date Comments Med Refill 07/13/2024 Encounter Details Date Type Department Care Team (Late st Contact Info) Description 07/13/2024 Refill [facility] MEDICINE 230 [place], [place] [phone] Amber Palacio MD 230 [place], [place] [phone] Smoker Social History Tobacco Use Types Packs/Day [...] [facility] MED & PEDS 505 [place] [address] Jenny Schmidt MD 505 [place] [address] 07/29/2025 10:00 AM EST Medication Management [facility] MED & PEDS 505 [place] [address] Cristal Muhammad PharmD 230 [place] [address] 08/20/2025 10:00 AM EST Clinical Support [facility] MED & PEDS 505 [place] [address] Katherine Casper, MAKEDA 505 [place] [address] documented as of this encounter Visit Diagnoses Diagnosis Smoker Tobacco use disorder documented in this encounter Care Teams Stock Preparation Operator Relationship Specialty Start Date End Date Joyce Tapia MD 230 [place] [address] PCP - General Family Medicine 06/19/12 05/01/25 Jenny Schmidt MD 505 [place] [address] PCP - General Family Medicine 05/02/25 Cristal Muhammad PharmD 230 [place] [address] Pharmacist Pharmacy 08/07/24 Alan Torres, MAKEDA 505 [place] [address] Registered Nurse Family Medicine 05/06/25 Kaylene Luo 05/06/25 documented as of this encounter
--- OUTSIDE RECORDS SUMMARY | 2025-06-08 10:12 | XMS_ITS | Encounter Summary ---
Author Organization [employer] Address 75 [facility] 7t [place] [address] Care Team Providers Care Auto Clocks Repairer Name Role Phone Joyce Tapia MD Primary Care Provider [phone] Cristal Muhammad PharmD Unavailable [phone] Jenny Schmidt MD Primary Care Provider [phone] Alan Torres RN Unavailable [phone] Kaylene Luo Unavailable Reason for Visit * Reason Comments Med Refill Encounter Details Date Type Department Care Team (Late st Contact Info) Description 10/03/2023 Refill [facility] MED & PEDS 505 [place], [place] [phone] Joyce Tapia MD 505 [place], [place] [phone] Arthropathy Social History Tobacco Use Types Packs/Day [...] Description 06/10/2025 11:15 AM EST Office Visit [facility] MED & PEDS 505 [place] [address] Jenny Schmidt MD 505 [place], [place] 07/29/2025 10:00 AM EST Medication Management [facility] MED & PEDS 505 [place], [place] [phone] Cristal Muhammad PharmD 230 [place] [address] 08/20/2025 10:00 AM EST Clinical Support [facility] MED & PEDS 505 [place], [place] [phone] Katherine Casper RN 505 [place], [place] documented as of this encounter Visit Diagnoses Diagnosis Arthropathy Unspecified arthropathy, site unspecified documented in this encounter Care Teams Auto Clocks Repairer Relationship Specialty Start Date End Date Joyce Tapia MD [address] [place] [address] PCP - General Family Medicine 06/19/12 05/01/25 Jenny Schmidt MD [address] [place] [address] PCP - General Family Medicine 05/02/25 Cristal Muhammad PharmD [address] [place] [address] Pharmacist Pharmacy 08/07/24 Alan Torres, MAKEDA [address] [place] [address] Registered Nurse Family Medicine 05/06/25 Kaylene Luo 05/06/25 documented as of this encounter
--- OUTSIDE RECORDS SUMMARY | 2025-06-08 10:12 | XMS_ITS | Encounter Summary ---
Author Organization [employer] Address 75 [facility] 7t [place] [address] Care Team Providers Care Carbonation Equipment Tender Name Role Phone Joyce Tapia MD Primary Care Provider [phone] Cristal Muhammad PharmD Unavailable [phone] Jenny Schmidt MD Primary Care Provider [phone] Alan Torres RN Unavailable [phone] Kaylene Luo Unavailable Reason for Visit * Reason Onset Date Comments Med Refill 07/12/2024 Encounter Details Date Type Department Care Team (Late st Contact Info) Description 07/12/2024 Refill [facility] CHC MED & PEDS 505 [place], [place] [phone] Joyce Tapia MD 505 [place], [place] [phone] Status post surgical removal of nail matrix [...] 11:15 AM EST Office Visit [facility] MED & PEDS 505 [place] [address] Jenny Schmidt MD 505 [place] [address] 07/29/2025 10:00 AM EST Medication Management [facility] MED & PEDS 505 [place] [address] Cristal Muhammad PharmD 230 [place] [address] 08/20/2025 10:00 AM EST Clinical Support [facility] MED & PEDS 505 [place] [address] Katherine Casper, MAKEDA 505 [place] [address] documented as of this encounter Visit Diagnoses Diagnosis Status post surgical removal of nail matrix of toe of left foot documented in this encounter Care Teams Carbonation Equipment Tender Relationship Specialty Start Date End Date Joyce Tapia MD 230 [place] [address] PCP - General Family Medicine 06/19/12 05/01/25 Jenny Schmidt MD 505 [place] [address] PCP - General Family Medicine 05/02/25 Cristal Muhammad PharmD 230 [place] [address] Pharmacist Pharmacy 08/07/24 Alan Torres, MAKEDA 505 [place] [address] Registered Nurse Family Medicine 05/06/25 Kaylene Luo 05/06/25 documented as of this encounter
--- OUTSIDE RECORDS SUMMARY | 2025-06-08 10:12 | XMS_ITS | Encounter Summary ---
Author Organization [employer] Address 75 [facility] 7t [place] [address] Care Team Providers Care Slab Worker Name Role Phone Joyce Tapia MD Primary Care Provider [phone] Cristal Muhammad PharmD Unavailable [phone] Jenny Schmidt MD Primary Care Provider [phone] Alan Torres RN Unavailable [phone] Kaylene Luo Unavailable Reason for Visit * Reason Onset Date Comments Medication Question 12/11/2024 Encounter Details Date Type Department Care Team (Late st Contact Info) Description 12/11/[address] [facility] MEDICINE 230 [place] [address] Joyce Tapia MD [address] [place], [place] [phone] Medication Question Social History Tobacco Use Types [...] have dosage increased. Please contact pt at [phone]. documented in this encounter Plan of Treatment Upcoming Encounters Date Type Department Care Team ([facility] st Contact Info) Description 06/10/2025 11:15 AM EST Office Visit [facility] MED & PEDS 505 [place] [address] Jenny Schmidt MD 505 [place] [address] 07/29/2025 10:00 AM EST Medication Management [facility] MED & PEDS 505 [place] [address] Cristal Muhammad, BobD 230 [place] [address] 08/20/2025 10:00 AM EST Clinical Support [facility] MED & PEDS 505 [place] [address] Katherine Casper, MAKEDA 505 [place] [address] documented as of this encounter Visit Diagnoses Not on filedocumented in this encounter Additional Health Concerns Assessment Noted Time PHQ-9 Depression Total Score: 7 09/15/19 9:02 AM EDT documented as of this encounter Care Teams Slab Worker Relationship Specialty Start Date End Date Joyce Tapia MD 230 [place] [address] PCP - General Family Medicine 06/19/12 05/01/25 Jenny Schmidt MD 505 [place] [address] PCP - General Family Medicine 05/02/25 Cristal Muhammad, BobD 230 [place] [address] Pharmacist Pharmacy 08/07/24 Alan Torres, MAKEDA 505 [place] [address] Registered Nurse Family Medicine 05/06/25 Kaylene Luo 05/06/25 documented as of this encounter
--- OUTSIDE RECORDS SUMMARY | 2025-06-08 10:12 | XMS_ITS | Encounter Summary ---
Author Organization [employer] Address 75 [facility] 7t [place] [address] Care Team Providers Care Assistant Service Manager Name Role Phone Joyce Tapia MD Primary Care Provider [phone] Cristal Muhammad PharmD Unavailable [phone] Jenny Schmidt MD Primary Care Provider [phone] Alan Torres RN Unavailable [phone] Kaylene Luo Unavailable Reason for Visit * Reason Onset Date Comments Med Refill 06/28/2023 Encounter Details Date Type Department Care Team (Late st Contact Info) Description 06/28/2023 Telephone [facility] MEDICINE 230 [place] [address] Joyce Tapia MD [address] [place], [place] [phone] Med Refill Social History Tobacco Use Types [...] sent to: [facility] - [address] documented in this encounter Plan of Treatment Upcoming Encounters Date Type Department Care Team ([facility] st Contact Info) Description 06/10/2025 11:15 AM EST Office Visit [facility] MED & PEDS 505 [place] [address] Jenny Schmidt MD 505 [place], [place] 07/29/2025 10:00 AM EST Medication Management [facility] MED & PEDS 505 [place] [address] Cristal Muhammad PharmD 230 [place] [address] 08/20/2025 10:00 AM EST Clinical Support [facility] MED & PEDS 505 [place] [address] Katherine Casper, MAKEDA 505 [place], [place] documented as of this encounter Visit Diagnoses Not on filedocumented in this encounter Care Teams Assistant Service Manager Relationship Specialty Start Date End Date Joyce Tapia MD [address] [place] [address] PCP - General Family Medicine 06/19/12 05/01/25 Jenny Schmidt MD [address] [place] [address] PCP - General Family Medicine 05/02/25 Cristal Muhammad PharmD [address] [place] [address] Pharmacist Pharmacy 08/07/24 Alan Torres, RN [address] [place] [address] Registered Nurse Family Medicine 05/06/25 Kaylene Luo 05/06/25 documented as of this encounter
--- OUTSIDE RECORDS SUMMARY | 2025-06-08 10:12 | XMS_ITS | Encounter Summary ---
Author Organization [employer] Address 75 [facility] 7t [place] [address] Care Team Providers Care Construction Checker Name Role Phone Joyce Tapia MD Primary Care Provider [phone] Cristal Muhammad PharmD Unavailable [phone] Jenny Schmidt MD Primary Care Provider [phone] Alan Torres RN Unavailable [phone] Kaylene Luo Unavailable Reason for Visit * Reason Onset Date Comments Med Refill 07/13/2024 Encounter Details Date Type Department Care Team (Late st Contact Info) Description 07/13/2024 Refill [facility] CHC MED & PEDS 505 [place], [place] [phone] Joyce Tapia MD 505 [place], [place] [phone] Social History Tobacco Use Types Packs/Day Years [...] [facility] MED & PEDS 505 [place] [address] Jenny Schmidt MD 505 [place] [address] 07/29/2025 10:00 AM EST Medication Management [facility] MED & PEDS 505 [place] [address] Cristal Muhammad PharmD 230 [place] [address] 08/20/2025 10:00 AM EST Clinical Support [facility] MED & PEDS 505 [place] [address] Katherine Casper, MAKEDA 505 [place] [address] documented as of this encounter Visit Diagnoses Not on filedocumented in this encounter Care Teams Construction Checker Relationship Specialty Start Date End Date Joyce Tapia MD 230 [place] [address] PCP - General Family Medicine 06/19/12 05/01/25 Jenny Schmidt MD 505 [place] [address] PCP - General Family Medicine 05/02/25 Cristal Muhammad PharmD 230 [place] [address] Pharmacist Pharmacy 08/07/24 Alan Torres, MAKEDA 505 [place] [address] Registered Nurse Family Medicine 05/06/25 Kaylene Luo 05/06/25 documented as of this encounter
--- OUTSIDE RECORDS SUMMARY | 2025-06-08 10:12 | XMS_ITS | Encounter Summary ---
Author Organization [employer] Address 75 [facility] 7t [place] [address] Care Team Providers Care Soldering Machine Feeder Name Role Phone Joyce Tapia MD Primary Care Provider [phone] Cristal Muhammad PharmD Unavailable [phone] Jenny Schmidt MD Primary Care Provider [phone] Alan Torres RN Unavailable [phone] Kaylene Luo Unavailable Reason for Visit * Reason Onset Date Comments Med Refill 10/24/2024 Encounter Details Date Type Department Care Team (Late st Contact Info) Description 10/24/2024 Refill [facility] MEDICINE 230 [place] [address] Ayden Orellana MD 505 [place], [place] [phone] Status post surgical removal of nail matrix [...] 11:15 AM EST Office Visit [facility] MED & PEDS 505 [place] [address] Jenny Schmidt MD 505 [place] [address] 07/29/2025 10:00 AM EST Medication Management [facility] MED & PEDS 505 [place] [address] Cristal Muhammad, BobD 230 [place] [address] 08/20/2025 10:00 AM EST Clinical Support [facility] MED & PEDS 505 [place] [address] Katherine Casper, MAKEDA 505 [place] [address] documented as of this encounter Visit Diagnoses Diagnosis Status post surgical removal of nail matrix of toe of left foot documented in this encounter Additional Health Concerns Assessment Noted Time PHQ-9 Depression Total Score: 7 09/15/19 25 9:02 AM EDT documented as of this encounter Care Teams Soldering Machine Feeder Relationship Specialty Start Date End Date Joyce Tapia MD 230 [place] [address] PCP - General Family Medicine 06/19/12 05/01/25 Jenny Schmidt MD 505 [place] [address] PCP - General Family Medicine 05/02/25 Cristal Muhammad PharmD 230 [place] [address] Pharmacist Pharmacy 08/07/24 Alan Torres, MAKEDA 505 [place] [address] Registered Nurse Family Medicine 05/06/25 Kaylene Luo 05/06/25 documented as of this encounter
--- OUTSIDE RECORDS SUMMARY | 2025-06-08 10:12 | XMS_ITS | Encounter Summary ---
Author Organization [employer] Address 75 [facility] 7t [place] [address] Care Team Providers Care Deckhand Shrimp Boat Name Role Phone Joyce Tapia MD Primary Care Provider [phone] Cristal Muhammad PharmD Unavailable [phone] Jenny Schmidt MD Primary Care Provider [phone] Alan Torres RN Unavailable [phone] Kaylene Luo Unavailable Reason for Visit * Reason Comments Med Refill Encounter Details Date Type Department Care Team ([facility] st Contact Info) Description 10/25/2022 Refill [facility] MED & PEDS 505 [place], [place] [phone] Jenny Schmidt MD 505 [place], [place] [phone] Status post surgical removal of nail matrix [...] [facility] MED & PEDS 505 [place] [address] Jenny Schmidt MD [address] [place], [place] 07/29/2025 10:00 AM EST Medication Management [facility] & P[facility] [address] [place], [place] [phone] Cristal Muhammad PharmD 230 [place] [address] 08/20/2025 10:00 AM EST Clinical Support [facility] MED [facility] P[facility] [address] [place], [place] [phone] Katherine Casper RN 505 [place] [address] documented as of this encounter Visit Diagnoses Diagnosis Status post surgical removal of nail matrix of toe of left foot documented in this encounter Care Teams Deckhand Shrimp Boat Relationship Specialty Start Date End Date Joyce Tapia MD [address] [place] [address] PCP - General Family Medicine 06/19/12 05/01/25 Jenny Schmidt MD [address] [place] [address] PCP - General Family Medicine 05/02/25 Cristal Muhammad PharmD [address] [place] [address] Pharmacist Pharmacy 08/07/24 Alan Torres, MAKEDA [address] [place] [address] Registered Nurse Family Medicine 05/06/25 Kaylene Luo 05/06/25 documented as of this encounter
--- OUTSIDE RECORDS SUMMARY | 2025-06-08 10:13 | XMS_ITS | Encounter Summary ---
Author Organization [employer] Address 75 [facility] 7t [place] [address] Care Team Providers Care Lard Maker Name Role Phone Cristal Muhammad PharmD Unavailable [phone] Jenny Schmidt MD Primary Care Provider [phone] Alan Torres RN Unavailable [phone] Kaylnee Luo Unavailable Reason for Visit * Reason Onset Date Comments Med Refill 05/20/2025 Encounter Details Date Type Department Care Team (Late st Contact Info) Description 05/20/2025 Refill [facility] MED & PEDS [address] [place], [place] [phone] Cristal Muhammad, PharmD 230 [place] [address] Social History Tobacco Use Types Packs/Day Years [...] the past 12 months, has t he [employer], gas, oil or water company threatened to [...] Description 06/10/2025 11:15 AM EST Office Visit [facility] MED & PEDS 505 [place] [address] Jenny Schmidt MD 505 [place] [address] 07/29/2025 10:00 AM EST Medication Management [facility] 505 [place] [address] Cristal Muhammad, BobD 230 [place], [place] [phone] 08/20/2025 10:00 AM EST Clinical Support [facility] 505 [place] [address] Katherine Casper, MAKEDA 505 [place] [address] documented as of this encounter Visit Diagnoses Not on filedocumented in this encounter Additional Health Concerns Assessment Noted Time PHQ-9 Depression Total Score: 7 09/15/19 25 9:02 AM EDT documented as of this encounter Care Teams Lard Maker Relationship Specialty Start Date End Date Jenny Schmidt MD 505 [place] [address] PCP - General Family Medicine 05/02/25 Cristal Muhammad, BobD 230 [place] [address] Pharmacist Pharmacy 08/07/24 Alan Torres, MAKEDA 505 [place] [address] Registered Nurse Family Medicine 05/06/25 Kaylene Luo 05/06/25 documented as of this encounter
--- OUTSIDE RECORDS SUMMARY | 2025-06-08 10:13 | XMS_ITS | Encounter Summary ---
Author Organization [employer] Address 75 [facility] 7t [place] [address] Care Team Providers Care Sealing And Canceling Machine Operator Name Role Phone Joyce Tapia MD Primary Care Provider [phone] Cristal Muhammad PharmD Unavailable [phone] Jenny Schmidt MD Primary Care Provider [phone] Alan Torres RN Unavailable [phone] Kaylene Luo Unavailable Reason for Visit * Reason Onset Date Comments Med Refill 06/25/2024 Encounter Details Date Type Department Care Team (Late st Contact Info) Description 06/25/2024 Refill [facility] 230 [place] [address] Joyce Tapia MD [address] [place], [place] [phone] Status post surgical removal of nail matrix [...] 06/10/2025 11:15 AM EST Office Visit [facility] MED & PEDS 505 [place] [address] Jenny Schmidt MD 505 [place] [address] 07/29/2025 10:00 AM EST Medication Management [facility] MED & PEDS 505 [place] [address] Cristal Muhammad PharmD 230 [place] [address] 08/20/2025 10:00 AM EST Clinical Support [facility] MED & PEDS 505 [place] [address] Katherine Casper, MAKEDA 505 [place] [address] documented as of this encounter Visit Diagnoses Diagnosis Status post surgical removal of nail matrix of toe of left foot documented in this encounter Care Teams Sealing And Canceling Machine Operator Relationship Specialty Start Date End Date Joyce Tapia MD 230 [place] [address] PCP - General Family Medicine 06/19/12 05/01/25 Jenny Schmidt MD 505 [place] [address] PCP - General Family Medicine 05/02/25 Cristal Muhammad PharmD 230 [place] [address] Pharmacist Pharmacy 08/07/24 Alan Torres, MAKEDA 505 [place] [address] Registered Nurse Family Medicine 05/06/25 Kaylene Luo 05/06/25 documented as of this encounter
--- OUTSIDE RECORDS SUMMARY | 2025-06-08 10:13 | XMS_ITS | Encounter Summary ---
Author Organization [employer] Address 75 [facility] 7t [place] [address] Care Team Providers Care Specimen Boss Name Role Phone Joyce Tapia MD Primary Care Provider [phone] Cristal Muhammad PharmD Unavailable [phone] Jenny Schmidt MD Primary Care Provider [phone] Alan Torres RN Unavailable [phone] Kaylene Luo Unavailable Reason for Visit * Reason Onset Date Comments Med Refill 02/10/2025 Encounter Details Date Type Department Care Team (Late st Contact Info) Description 02/10/2025 Refill [facility] [address] [place] [address] [phone] Myra Connors MD 230 [place], [place] [phone] Candidiasis Social History Tobacco Use Types Packs/Day [...] [facility] 505 [place] [address] Jenny Schmidt MD 505 [place] [address] 07/29/2025 10:00 AM EST Medication Management [facility] 505 [place] [address] Cristal Muhammad, BobD 230 [place], [place] [phone] 08/20/2025 10:00 AM EST Clinical Support [facility] 505 [place] [address] Katherine Casper, MAKEDA 505 [place] [address] documented as of this encounter Visit Diagnoses Diagnosis Candidiasis documented in this encounter Additional Health Concerns Assessment Noted Time PHQ-9 Depression Total Score: 7 09/15/19 25 9:02 AM EDT documented as of this encounter Care Teams Specimen Boss Relationship Specialty Start Date End Date Joyce Tapai MD 230 [place] [address] PCP - General Family Medicine 06/19/12 05/01/25 Jenny Schmidt MD 505 [place] [address] PCP - General Family Medicine 05/02/25 Cristal Muhammad PharmD 230 [place] [address] Pharmacist Pharmacy 08/07/24 Alan Torres, MAKEDA 505 [place] [address] Registered Nurse Family Medicine 05/06/25 Kaylene Luo 05/06/25 documented as of this encounter
--- OUTSIDE RECORDS SUMMARY | 2025-06-08 10:13 | XMS_ITS | Encounter Summary ---
Author Organization [employer] Address 75 [facility] 7t [place] [address] Care Team Providers Care Feeder Operator Automatic Name Role Phone Cristal Muhammad PharmD Unavailable [phone] Jenny Schmidt MD Primary Care Provider [phone] Alan Torres RN Unavailable [phone] Kaylene Luo Unavailable Reason for Visit * Reason Onset Date Comments Med Refill 05/18/2025 Encounter Details Date Type Department Care Team (Late st Contact Info) Description 05/18/2025 Refill [facility] MED & PEDS [address] [place], [place] [phone] Cristal Muhammad, PharmD 230 [place] [address] Social History Tobacco Use Types Packs/Day Years [...] the past 12 months, has t he [employer], gas, oil or water company threatened to [...] [facility] MED & PED[facility] 505 [place] [address] Jenny Schmidt MD 505 [place] [address] 07/29/2025 10:00 AM EST Medication Management [facility] MED [facility] PEDS 505 [place] [address] Cristal Muhammad, BobD 230 [place], [place] [phone] 08/20/2025 10:00 AM EST Clinical Support [facility] MED & PEDS 505 [place] [address] Katherine Casper, MAKEDA 505 [place] [address] documented as of this encounter Visit Diagnoses Not on filedocumented in this encounter Additional Health Concerns Assessment Noted Time PHQ-9 Depression Total Score: 7 09/15/19 25 9:02 AM EDT documented as of this encounter Care Teams Feeder Operator Automatic Relationship Specialty Start Date End Date Jenny Schmidt MD 505 [place] [address] PCP - General Family Medicine 05/02/25 Cristal Muhammad, BobD 230 [place] [address] Pharmacist Pharmacy 08/07/24 Alan Torres, MAKEDA 505 [place] [address] Registered Nurse Family Medicine 05/06/25 Kaylene Luo 05/06/25 documented as of this encounter
--- OUTSIDE RECORDS SUMMARY | 2025-06-08 10:13 | XMS_ITS | Encounter Summary ---
Author Organization [employer] Address 75 [facility] 7t [place] [address] Care Team Providers Care Stem Crusher Name Role Phone Joyce Tapia MD Primary Care Provider [phone] Cristal Muhammad PharmD Unavailable [phone] Jenny Schmidt MD Primary Care Provider [phone] Alan Torres RN Unavailable [phone] Kaylene Luo Unavailable Reason for Visit * Reason Comments Med Refill Encounter Details Date Type Department Care Team (Late st Contact Info) Description 12/17/2024 Refill [facility] 230 [place] [address] Kassi Johnston FNP [address] [place] [address] Social History Tobacco Use Types Packs/Day Years [...] the past 12 months, has t he [employer], oil or water [employer] threatened to shut off services in your [...] 11:15 AM EST Office Visit [facility] MED & PEDS 505 [place] [address] Jenny Schmidt MD 505 [place] [address] 07/29/2025 10:00 AM EST Medication Management [facility] MED & PEDS 505 [place] [address] Cristal Muhammad, PharmD 230 [place] [address] 08/20/2025 10:00 AM EST Clinical Support [facility] MED & PEDS 505 [place] [address] Katherine Casper, MAKEDA 505 [place] [address] documented as of this encounter Visit Diagnoses Not on filedocumented in this encounter Additional Health Concerns Assessment Noted Time PHQ-9 Depression Total Score: 7 09/15/19 25 9:02 AM EDT documented as of this encounter Care Teams Stem Crusher Relationship Specialty Start Date End Date Joyce Tapia MD 230 [place] [address] PCP - General Family Medicine 06/19/12 05/01/25 Jenny Schmidt MD 505 [place] [address] PCP - General Family Medicine 05/02/25 Cristal Muhammad PharmD 230 [place] [address] Pharmacist Pharmacy 08/07/24 Alan Torres, MAKEDA 505 [place] [address] Registered Nurse Family Medicine 05/06/25 Kaylene Luo 05/06/25 documented as of this encounter
--- OUTSIDE RECORDS SUMMARY | 2025-06-08 10:13 | XMS_ITS | Encounter Summary ---
Author Organization [employer] Address 75 [facility] 7t [place] [address] Care Team Providers Care Motor Room Controller Name Role Phone Cristal Muhammad PharmD Unavailable [phone] Jenny Schmidt MD Primary Care Provider [phone] Alan Torres RN Unavailable [phone] Kaylene Luo Unavailable Reason for Visit * Reason Onset Date Comments Med Refill 05/05/2025 Encounter Details Date Type Department Care Team ([facility] st Contact Info) Description 05/05/2025 Refill [facility] MED & PEDS 505 [place], [place] [phone] Joyce Tapia MD 505 [place], [place] [phone] Status post surgical removal of nail matrix [...] 11:15 AM EST Office Visit [facility] MED & PEDS 505 [place] [address] Jenny Schmidt MD 505 [place] [address] 07/29/2025 10:00 AM EST Medication Management [facility] MED & PEDS 505 [place] [address] Cristal Muhammad, BobD [address] [place] [address] 08/20/2025 10:00 AM EST Clinical Support [facility] MED & PEDS 505 [place] [address] Katherine Casper, MAKEDA 505 [place] [address] documented as of this encounter Visit Diagnoses Diagnosis Status post surgical removal of nail matrix of toe of left foot documented in this encounter Additional Health Concerns Assessment Noted Time PHQ-9 Depression Total Score: 7 09/15/19 25 9:02 AM EDT documented as of this encounter Care Teams Motor Room Controller Relationship Specialty Start Date End Date Jenny Schmidt MD [address] [place] [address] PCP - General Family Medicine 05/02/25 Cristal Muhammad PharmD [address] [place] [address] Pharmacist Pharmacy 08/07/24 Alan Torres, MAKEDA 505 [place] [address] Registered Nurse Family Medicine 05/06/25 Kaylene Luo 05/06/25 documented as of this encounter
--- OUTSIDE RECORDS SUMMARY | 2025-06-08 10:13 | XMS_ITS | Encounter Summary ---
Author Organization [employer] Address 75 [facility] 7t [place] [address] Care Team Providers Care Tube Winder Name Role Phone Cristal Muhammad PharmD Unavailable [phone] Jenny Schmidt MD Primary Care Provider [phone] Alan Torres RN Unavailable [phone] Kaylene Luo Unavailable Reason for Visit * Reason Onset Date Comments Med Refill 05/15/2025 Encounter Details Date Type Department Care Team (Late st Contact Info) Description 05/15/2025 Refill [facility] CH[facility] MED & PEDS [address] [place], [place] [phone] Cristal Muhammad, PharmD 230 [place] [address] Social History Tobacco Use Types Packs/Day Years [...] the past 12 months, has t he [employer], gas, oil or water company threatened to [...] Description 06/10/2025 11:15 AM EST Office Visit [facility] MED & PEDS 505 [place] [address] Jenny Schmidt MD 505 [place] [address] 07/29/2025 10:00 AM EST Medication Management [facility] MED & PEDS 505 [place] [address] Cristal Muhammad, BobD 230 [place], [place] [phone] 08/20/2025 10:00 AM EST Clinical Support [facility] MED & PEDS 505 [place] [address] Katherine Casper, MAKEDA 505 [place] [address] documented as of this encounter Visit Diagnoses Not on filedocumented in this encounter Additional Health Concerns Assessment Noted Time PHQ-9 Depression Total Score: 7 09/15/19 25 9:02 AM EDT documented as of this encounter Care Teams Tube Winder Relationship Specialty Start Date End Date Jenny Schmidt MD [address] [place] [address] PCP - General Family Medicine 05/02/25 Cristal Muhammad, BobD 230 [place] [address] Pharmacist Pharmacy 08/07/24 Alan Torres, MAKEDA 505 [place] [address] Registered Nurse Family Medicine 05/06/25 Kaylene Luo 05/06/25 documented as of this encounter
--- OUTSIDE RECORDS SUMMARY | 2025-06-08 10:13 | XMS_ITS | Encounter Summary ---
Author Organization [employer] Address 75 [facility] 7t [place] [address] Care Team Providers Care Javascript Web Developer Name Role Phone Joyce Tapia MD Primary Care Provider [phone] Cristal Muhammad PharmD Unavailable [phone] Jenny Schmidt MD Primary Care Provider [phone] Alan Torres RN Unavailable [phone] Kaylene Luo Unavailable Reason for Visit * Reason Onset Date Comments Med Refill 09/26/2024 Encounter Details Date Type Department Care Team (Late st Contact Info) Description 09/26/2024 Refill [facility] 505 [place], [place] [phone] Joyce Tapia MD 505 [place], [place] [phone] Status post surgical removal of nail matrix [...] Description 06/10/2025 11:15 AM EST Office Visit [facility] MED & PEDS [address] [place] [address] Jenny Schmidt MD 505 [place] [address] 07/29/2025 10:00 AM EST Medication Management [facility] MED & PEDS [address] [place] [address] Cristal Muhammad, BobD 230 [place] [address] 08/20/2025 10:00 AM EST Clinical Support [facility] MED & PEDS [address] [place] [address] Katherine Casper, MAKEDA 505 [place] [address] documented as of this encounter Visit Diagnoses Diagnosis Status post surgical removal of nail matrix of toe of left foot documented in this encounter Additional Health Concerns Assessment Noted Time PHQ-9 Depression Total Score: 7 09/15/19 25 9:02 AM EDT documented as of this encounter Care Teams Javascript Web Developer Relationship Specialty Start Date End Date Joyce Tapia MD 230 [place] [address] PCP - General Family Medicine 06/19/12 05/01/25 Jenny Schmidt MD 505 [place] [address] PCP - General Family Medicine 05/02/25 Cristal Muhammad PharmD 230 [place] [address] Pharmacist Pharmacy 08/07/24 Alan Torres, MAKEDA 505 [place] [address] Registered Nurse Family Medicine 05/06/25 Kaylene Luo 05/06/25 documented as of this encounter
--- OUTSIDE RECORDS SUMMARY | 2025-06-08 10:13 | XMS_ITS ---
Author Organization [employer] Address 75 [facility] 7t [place] [address] Care Team Providers Care Email Marketing Intern Name Role Phone Cristal Muhammad PharmD Unavailable [phone] Jenny Schmidt MD Primary Care Provider [phone] Alan Torres RN Unavailable [phone] Kaylene Luo Unavailable CHW Complex Status:Outreach In Progress (Enrolling) Start date:05/06/2025 Enrollment reason:ADT Feed Overview ED- [place] [facility] [place]. Case Team Name Relationship Phone Kaylene Luo(Responsible Staff) [phone] Continued Care and Services Coordination
--- OUTSIDE RECORDS SUMMARY | 2025-06-08 10:13 | XMS_ITS | Encounter Summary ---
Author Organization [employer] Address 75 [facility] 7t [place] [address] Care Team Providers Care Brass Roller Name Role Phone Cristal Muhammad PharmD Unavailable [phone] Jenny Schmidt MD Primary Care Provider [phone] Alan Torres RN Unavailable [phone] Kaylene Luo Unavailable Encounter Details Date Type Department Care Team (Late st Contact Info) Description 05/08/2025 Orders Only [facility] 230 [place], [place] [phone] Provider, MD Saumya Social History Tobacco Use [...] Description 06/10/2025 11:15 AM EST Office Visit [facility] MED & PEDS 505 [place] [address] Jenny Schmidt MD 505 [place] [address] 07/29/2025 10:00 AM EST Medication Management [facility] P[facility] [address] [place] [address] Cristal Muhammad PharmD 230 [place] [address] 08/20/2025 10:00 AM EST Clinical Support [facility] P[facility] [address] [place] [address] Katherine Casper RN 505 [place] [address] documented as of this encounter Procedures Procedure [...] documented as of this encounter Care Teams Brass Roller Relationship Specialty Start Date End Date Jenny Schmidt MD 505 [place] [address] PCP - General Family Medicine 05/02/25 Cristal Muhammad PharmD [address] [place] [address] Pharmacist Pharmacy 08/07/24 Alan Torres, MAKEDA 505 [place] [address] Registered Nurse Family Medicine 05/06/25 Kaylene Luo 05/06/25 documented as of this encounter
--- OUTSIDE RECORDS SUMMARY | 2025-06-08 10:13 | XMS_ITS | Encounter Summary ---
Author Organization [employer] Address 75 [facility] 7t [place] [address] Care Team Providers Care Sports Photographer Name Role Phone Cristal Muhammad PharmD Unavailable [phone] Jenny Schmidt MD Primary Care Provider [phone] Alan Torres RN Unavailable [phone] Kaylene Luo Unavailable Encounter Details Date Type Department Care Team ([facility] st Contact Info) Description 05/08/2025 Results Follow-Up [facility] CHC MED & PEDS [address] [place], [place] [phone] Jenny Schmidt MD 505 [place], [place] [phone] Diabetes Eye Exam Social History Tobacco Use [...] the past 12 months, has t he [employer], gas, oil or water company threatened to [...] 11:15 AM EST Office Visit [facility] MED [facility] PED[facility] [address] [place] [address] Jenny Schmidt MD 505 [place] [address] 07/29/2025 10:00 AM EST Medication Management [facility] P[facility] [address] [place] [address] Cristal Muhammad, PharmD 230 [place] [address] 08/20/2025 10:00 AM EST Clinical Support [facility] MED & PEDS [address] [place] [address] Katherine Casper, MAKEDA 505 [place] [address] documented as of this encounter Visit Diagnoses Not on filedocumented in this encounter Additional Health Concerns Assessment Noted Time PHQ-9 Depression Total Score: 7 09/15/19 9:02 AM EDT documented as of this encounter Care Teams Sports Photographer Relationship Specialty Start Date End Date Jenny Schmidt MD 505 [place] [address] PCP - General Family Medicine 05/02/25 Cristal Muhammad PharmD 230 [place] [address] Pharmacist Pharmacy 08/07/24 Alan Torres, MAKEDA 505 [place] [address] Registered Nurse Family Medicine 05/06/25 Kaylene Luo 05/06/25 documented as of this encounter
--- OUTSIDE RECORDS SUMMARY | 2025-06-08 10:13 | XMS_ITS ---
Author Organization [employer] Address 75 [facility] 7t [place] [address] Care Team Providers Care Mooner Name Role Phone Cristal Muhammad PharmD Unavailable [phone] Jenny Schmidt MD Primary Care Provider [phone] Alan Torres RN Unavailable Kaylene Luo Unavailable CM Complex Status:Enrolled (Active) Start date:05/06/2025 Enrollment date:05/27/2025 Enrollment reason:ADT Feed Overview ED- [place] [facility] [place]. Case Team Name Relationship Phone Alan Torres RN(Responsible Staff) Em agudelo [phone] Continued Care and Services Coordination
--- OUTSIDE RECORDS SUMMARY | 2025-06-08 10:13 | XMS_ITS | Encounter Summary ---
Author Organization [employer] Address 75 [facility] 7t [place] [address] Care Team Providers Care Polishing Pad Mounter Name Role Phone Cristal Muhammad PharmD Unavailable [phone] Jenny Schmidt MD Primary Care Provider [phone] Alan Torres RN Unavailable [phone] Kaylene Luo Unavailable Reason for Visit * Reason Comments Med Refill Encounter Details Date Type Department Care Team (Late st Contact Info) Description 05/06/2025 Refill [facility] MED & PEDS [address] [place], [place] [phone] Joyce Tapia MD [address] [place], [place] [phone] Status post surgical removal of nail matrix [...] the past 12 months, has t he [employer], gas, oil or water company threatened to [...] [facility] MED & PEDS [address] [place] [address] Jenny Schmidt MD [address] [place] [address] 07/29/2025 10:00 AM EST Medication Management [facility] MED & PEDS [address] [place] [address] Cristal Muhammad, BobD [address] [place] [address] 08/20/2025 10:00 AM EST Clinical Support [facility] MED & PEDS [address] [place] [address] Katherine Casper, MAKEDA [address] [place] [address] documented as of this encounter Visit Diagnoses Diagnosis Status post surgical removal of nail matrix of toe of left foot documented in this encounter Additional Health Concerns Assessment Noted Time PHQ-9 Depression Total Score: 7 09/15/19 9:02 AM EDT documented as of this encounter Care Teams Polishing Pad Mounter Relationship Specialty Start Date End Date Jenny Schmidt MD [address] [place] [address] PCP - General Family Medicine 05/02/25 Cristal Muhammad, BobD [address] [place] [address] Pharmacist Pharmacy 08/07/24 Alan Torres, MAKEDA [address] [place] [address] Registered Nurse Family Medicine 05/06/25 Kaylene Luo 05/06/25 documented as of this encounter
--- OUTSIDE RECORDS SUMMARY | 2025-06-08 10:13 | XMS_ITS | Encounter Summary ---
Author Organization [employer] Address 75 [facility] 7t [place] [address] Care Team Providers Care Roller Gold Leaf Name Role Phone Cristal Muhammad PharmD Unavailable [phone] Jenny Schmidt MD Primary Care Provider [phone] Alan Torres RN Unavailable [phone] Kaylene Luo Unavailable Reason for Visit * Reason Onset Date Comments Med Refill 05/20/2025 Encounter Details Date Type Department Care Team ([facility] st Contact Info) Description 05/20/2025 Refill [facility] MED & PEDS [address] [place], [place] [phone] Jenny Schmidt MD [address] [place], [place] [phone] Status post surgical removal of nail matrix of toe of left foot; Pain Social History Tobacco Use Types Packs/Day [...] Upcoming Encounters Date Type Department Care Team ([facility] st Contact Info) Description 06/10/2025 11:15 AM EST Office Visit [facility] MED & PEDS [address] [place] [address] Jenny Schmidt MD [address] [place] [address] 07/29/2025 10:00 AM EST Medication Management [facility] MED & PEDS [address] [place] [address] Cristal Muhammad, PharmD [address] [place] [address] 08/20/2025 10:00 AM EST Clinical Support [facility] MED & PEDS [address] [place] [address] Katherine Casper, MAKEDA [address] [place] [address] documented as of this encounter Visit Diagnoses Diagnosis Status post surgical removal of nail matrix of toe of left foot Pain Generalized pain documented in this encounter Additional Health Concerns Assessment Noted Time PHQ-9 Depression Total Score: 7 09/15/19 25 9:02 AM EDT documented as of this encounter Care Teams Roller Gold Leaf Relationship Specialty Start Date End Date Jenny Schmidt MD [address] [place] [address] PCP - General Family Medicine 05/02/25 Cristal Muhammad PharmD [address] [place] [address] Pharmacist Pharmacy 08/07/24 Alan Torres, MAKEDA [address] [place] [address] Registered Nurse Family Medicine 05/06/25 Kaylene Luo 05/06/25 documented as of this encounter
== END 2025-06-08 10:09 | disposition home or self-care (01) ==
LOC: HO.MAMMO 10:08
PROVIDERS: Absent Provider Family Medicine; PCP Radiology Diagnostic Radiology; Visit Provider Obstetrics & Gynecology
DX: Z12.31 Encounter for screening mammogram for malignant neoplasm of breast (principal)
CPT/HCPCS: 77063; 77067

== ENCOUNTER → 2025-06-08 10:30 | Outpatient (BNV) | payer MEDICAID, SELFPAY | PROVIDERS: Absent Provider Family Medicine; PCP Radiology Diagnostic Radiology; Visit Provider Internal Medicine | DX: Z12.31 Encounter for screening mammogram for malignant neoplasm of breast (principal) | CPT/HCPCS: 77063; 77067 ==

== ENCOUNTER 2025-06-11 08:20 | Outpatient (AMB) | payer MEDICAID, SELFPAY ==
--- NOTE | 2025-06-11 08:57 | A.OFFVIS_ITS ---
Vital Signs 06/11/25 09:02 Height 5 ft 3 in Weight 160 lb BMI 28.3 Intake Visit Reasons: OV- ROM check/MRI rev Ganglion Exc 01/31/25 Intake Note: Nayely 64 yr old right hand dominant female presents today for her follow up visit for her right wrist pain. Patient was last seen with Sabino Euceda who sent patient for a MRI study to rule out any underlying soft tissue injury that may be causing her significant pain. Patient was also given a velcro wrist brace and was advise to work on gentle ROM to prevent stiffness. Today patient is here for her MRI review. Today patient states her cyst has grown back in and is causing her severe pain due to the cyst increasing in size. Allergies prochlorperazine (From Compazine) Allergy (Severe, Verified 06/11/25 09:00) Seizure sulfamethoxazole (From BACTRIM) Allergy (Severe, Verified 06/11/25 09:00) BLISTERS- DELGADO - NERVE ENDINGS IN HAND/ERYTHEMA MULTIFORM trimethoprim (From BACTRIM) Allergy (Severe, Verified 06/11/25 09:00) BLISTERS- [place]GADO - NERVE ENDINGS IN HAND/ERYTHEMA MULTIFORM Penicillins Allergy (Intermediate, Verified 06/11/25 09:00) HIVES latex (Latex) Allergy (Mild, Verified 06/11/25 09:00) RASH transparent dressing (Tegaderm) Adverse Reaction (Severe, Verified 06/11/25 09:00) Redness of Skin theophylline Adverse Reaction (Intermediate, Verified 06/11/25 09:00) TACHYCARDIA HPI HPI OV- ROM check/MRI rev Ganglion Exc 01/31/25: Details: Nayely is a 64 year old right hand dominant Diabetic woman who returns for an MRI review of her right wrist pain. She complains of pain in her wrist & her hand, which she finds limiting in her daily activities. She says her right dorsal wrist ganglion cyst has grown back and is causing her wrist pain & limited ROM. She continues to have limited ROM & use of her right hand, and says she has been working with OT hand therapy, with some improvement. She also complains of numbness in her bilateral median nerve distribution, R>L. She says this has been present for several months now. She reports decreased sensation in her right median nerve distribution. She says this limits the use of her hands for daily activities. Previous left hand surgeries: Left Carpal tunnel release in 1984 Left repeat Carpal tunnel release with Dr. Bautista on 11/16/21 Left Cubital tunnel release from 1984 Left repeat Cubital tunnel release, with Dr. Bautista DOS: 04/15/22 Left middle finger & ring finger trigger release on 12/09/20 Left middle finger & ring finger ulnar slip FDS tenotomy on 01/13/21 Left dorsal wrist ganglion aspiration by Dr. Bautista on 06/03/22 Previous right hand surgeries: Right carpal tunnel release in 1994 Right repeat carpal tunnel release with Dr. Bautista on 10/14/22 Right trigger thumb release on 09/08/23 Right middle finger trigger release on 01/31/25 Right dorsal wrist ganglion excision on 01/31/25 [facility] Medical History Hidradenitis suppurativa Edema Fibromyalgia Type 2 diabetes mellitus without complications Neuropathy Abscess Abdominal pain Infection of skin due to methicillin resistant Staphylococcus aureus (MRSA) Numbness of right hand COVID-19 Sebaceous cyst Cubital tunnel syndrome on left Contusion of right ankle Numbness and tingling in left hand Left hand pain Stiffness of left hand joint Emesis Overweight (BMI 25.0-29.9) Borderline diabetes Dyslipidemia Non-toxic multinodular goiter Diabetes type 2, controlled History of restless legs syndrome Anxiety Depression High cholesterol Asthma DVT (deep venous thrombosis) GERD (gastroesophageal reflux disease) Anastomotic ulcer Surgical History Hx of colonoscopy H/O removal of cyst (02/03/23) History of removal of cyst (07/28/22) Hx of cholecystectomy History of surgery History of surgery on left wrist Hx of elbow surgery History of excision of epidermal inclusion cyst (03/23/22) Hx of excision of epidermal inclusion cyst (12/25/21) History of excision of mass (10/26/21) S/P trigger finger release History of tooth extraction Hx of hand surgery Hx of esophagogastroduodenoscopy S/P gastric bypass History of hysterectomy Family History Mother Diabetes mellitus CHF (congestive heart failure) Kidney failure Cervical cancer Brother No problems noted. Brother No problems noted. 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 Normal sensation in the ulnar nerve distribution Vascular: Cap refill brisk ROM: With encouragement she can make a tight fist and extend all her digits No locking or catching There is a mass on the dorsal aspect of the wrist, over the 4th dorsal compartment over the distal radius, measuring ~1.5cm diameter and most consistent with a ganglion cyst. This is multi-lobular Nerve Conduction Study: Mild-moderate bilateral carpal tunnel Dr. Wagner 01/17/25 Right wrist MRI FINDINGS: BONE/JOINTS: There are cystic foci in the carpal bones, more prominent in the lunate, capitate, trapezoid, consistent with degenerative changes. Radiocarpal articulation is maintained. Mild ulnar negative variance. Carpal row articulation is maintained. No evidence of acute fracture. No aggressive marrow replacing lesion. SOFT TISSUES: Bright T2/low T1 signal focus in the dorsal soft tissues of the wrist at the level of the distal radius. Measures 7 x 7 x 6 mm. The deep surface is abutting the underlying tendons. Primary differential consideration is for a ganglion cyst. 7 mm cystic focus proximal to the pisotriquetral articulation, could reflect a synovial recess or ganglion cyst. Dorsal soft tissue subcutaneous edema. MUSCLE/TENDONS: Mild peritendinitis along the extensor carpi radialis longus and brevis tendons, extensor pollicis longus tendon. Extensor pollicis tendon has intermediate T2 signal could reflect artifactual signal versus mild tendinosis. LIGAMENTS: Scapholunate ligament degeneration without definite of tear seen. Lunotriquetral ligament is intact. TFCC appears intact. MEDIAN NERVE: Within normal limits MR/MR wrist RT wo con IMPRESSION: 1. In the dorsal soft tissues of the wrist, is a 7 x 7 x 6 mm cystic focus, likely representing a ganglion cyst. 2. Small cystic focus proximal to the pisotriquetral articulation could reflect a synovial recess or ganglion cyst. . 3. Mild extensor carpi radialis longus and brevis, extensor pollicis longus peritendinitis. Extensor pollicis longus signal changes could reflect artifactual signal versus mild tendinosis. 4. Wrist degeneration as detailed above. Electronically signed by: Daniel Hyatt MD 05/20/2025 Psych Appearance: grossly normal Affect: normal affect Attitude: cooperative Assessment & Plan Assessment & Plan (1) Ganglion cyst of dorsum of right wrist: Code(s): M67.431 - Ganglion, right wrist Category: Medical (2) Carpal tunnel syndrome of right wrist: Code(s): G56.01 - Carpal tunnel syndrome, right upper limb Category: Medical (3) Right wrist pain: Code(s): M25.531 - Pain in right wrist Category: Medical (4) Diabetes type 2, controlled: Code(s): E11.9 - Type 2 diabetes mellitus without complications Category: Medical (5) Fibromyalgia: Comment: She is already taking multiple pain medicines. Code(s): M79.7 - Fibromyalgia Category: Medical (6) Chronic pain syndrome: Code(s): G89.4 - Chronic pain syndrome Category: Medical (7) Carpal tunnel syndrome of left wrist: Code(s): G56.02 - Carpal tunnel syndrome, left upper limb Category: Medical Plan Assessment & Plan: 1. Right dorsal wrist ganglion, recurrent S/P excision DOS: 01/31/25 Measuring ~1.5cm in diameter, multi-lobular, over the 4th dorsal compartment 2. Right carpal tunnel syndrome, recurrent mild-moderate S/P repeat release DOS: 1994, 10/14/[address] Bautista With normal sensation & good resolution of her symptoms following her repeat release in 2022 Now with decreased sensation that began a few months ago I educated her about this condition I discussed operative and non-operative treatment options The patient would like to proceed with surgery The risks and benefits of operative treatment were discussed with the patient and the patient wishes to proceed with surgery. These risks include, but are not limited to risk of damage to blood vessels, nerves, tendons, infection, recurrence, incomplete relief of preoperative symptoms, persistent pain, possible need for further surgery and the risks associated with regional blocks and anesthesia. The plan is to take the patient to the operating room sometime in the next few weeks for the following procedures: 1. Right dorsal wrist ganglion REPEAT excision, under general 2. Right carpal tunnel REPEATX2 release, under general 3. Placement of a nerve wrap to decrease the likelihood of carpal tunnel syndrome recurrence All of the preoperative paperwork including the consent was reviewed today. All the patient's questions were answered. The patient understands that they will be contacted by our environmental laboratory technician soon to schedule this procedure She denies blood thinners, asthma, heart, lung, kidney issues She is a Diabetic, and says this is well-controlled but she does not know her most recent HgA1c. They will need an updated HgA1c that is <8.1% in order to proceed with surgery, and they expressed understanding 3. Right hand & wrist stiffness/swelling I discussed the importance of activity modification She should work on gentle ROM exercises at home, 20x daily minimum I discouraged the use of squeeze balls at this time 4. Left carpal tunnel syndrome, recurrent mild-moderate S/P repeat release DOS: 1984, 11/16/[address] Bautista With normal sensation & good resolution of her symptoms following her repeat release Symptoms intermittent & occasional We can discuss this at a later date 5. Left hand Dupuytrens disease Nodule in line with the middle finger No evidence of cord or contractures No treatment indicated at this time Please see my previous notes as well as the HPI for a list of additional diagnoses and previous surgeries as needed. Please note that greater than 30 minutes was spent with this patient going over the history, evaluating the patient and radiographs, formulating possible treatment options, discussing them with the patient, and documenting the visit. Scribed for Jessy Bautista MD by Alcides Felix, medical secretary, on 06/11/25 at 9:15 AM, EST. Coding Level of Care Code Est Pt Level 4 (11882) Diagnoses Ganglion cyst of dorsum of right wrist M67.431 Carpal tunnel syndrome of right wrist G56.01 Right wrist pain M25.531 Diabetes type 2, controlled E11.9 Fibromyalgia M79.7 Chronic pain syndrome G89.4 Carpal tunnel syndrome of left wrist G56.02
[2025-06-11 09:02] VITALS: BMI 28.3
== END 2025-06-11 09:50 | disposition home or self-care (01) ==
LOC: HO.HOS 08:21
PROVIDERS: Visit Provider Orthopaedic Surgery
DX: M67.431 Ganglion, right wrist (principal); G56.03 Carpal tunnel syndrome, bilateral upper limbs; M25.531 Pain in right wrist; E11.9 Type 2 diabetes mellitus without complications; M79.7 Fibromyalgia; G89.4 Chronic pain syndrome
CPT/HCPCS: 99214

== ENCOUNTER → 2025-06-11 08:20 | Outpatient (BNVA) | payer MEDICAID, SELFPAY | PROVIDERS: Visit Provider Orthopaedic Surgery | DX: M67.431 Ganglion, right wrist (principal); M25.531 Pain in right wrist; M79.7 Fibromyalgia; G89.4 Chronic pain syndrome; E11.9 Type 2 diabetes mellitus without complications; Z79.84 Long term (current) use of oral hypoglycemic drugs; F17.210 Nicotine dependence, cigarettes, uncomplicated; G56.03 Carpal tunnel syndrome, bilateral upper limbs | CPT/HCPCS: 99212 ==

== ENCOUNTER 2025-06-26 08:53 | Outpatient (REF) | payer MEDICAID, SELFPAY ==
--- OUTSIDE RECORDS SUMMARY | 2025-06-26 08:58 | XMS_ITS | Encounter Summary ---
Author Organization [employer] Address 75 [facility] 7t [place] [address] Care Team Providers Care Machine Straw Hat Presser Name Role Phone Joyce Tapia MD Primary Care Provider [phone] Cristal Muhammad PharmD Unavailable [phone] Jenny Schmidt MD Primary Care Provider [phone] Alan Torres RN Unavailable [phone] Kaylene Luo Unavailable Reason for Visit * Reason Onset Date Comments Med Refill 07/25/2024 Encounter Details Date Type Department Care Team (Late st Contact Info) Description 07/25/[address] [facility] MEDICINE [address] [place] [address] Emerson Keith MD [address] [place], [place] [phone] Status post surgical removal of nail matrix [...] Care Team (Late st Contact Info) Description 07/29/2025 10:00 AM EST Medication Management [facility] MED & PEDS [address] [place] [address] Cristal Muhammad, PharmD [address] [place] [address] 08/05/2025 1:45 PM EST Office Visit [facility] MED & PEDS [address] [place] [address] Jenny Schmidt MD [address] [place] [address] 08/06/2025 10:45 AM EST Office Visit [facility] MED & PEDS [address] [place] [address] Ayden Orellana MD [address] [place] [address] 08/20/2025 10:00 AM EST Clinical Support [facility] MED & PEDS [address] [place] [address] Katherine Casper RN [address] [place] [address] documented as of this encounter Visit Diagnoses Diagnosis Status post surgical removal of nail matrix of toe of left foot documented in this encounter Care Teams Machine Straw Hat Presser Relationship Specialty Start Date End Date Joyce Tapia MD [address] [place] [address] PCP - General Family Medicine 06/19/12 05/01/25 Jenny Schmidt MD [address] [place] [address] PCP - General Family Medicine 05/02/25 Cristal Mhuammad PharmD [address] [place] [address] Pharmacist Pharmacy 08/07/24 Alan Torres RN [address] [place] [address] Registered Nurse Family Medicine 05/06/25 Kaylene Luo 05/06/25 documented as of this encounter
--- OUTSIDE RECORDS SUMMARY | 2025-06-26 08:58 | XMS_ITS | Encounter Summary ---
Author Organization [employer] Address [address] [facility] 7t [place] [address] Care Team Providers Care Sander Portable Machine Name Role Phone Joyce Tapia MD Primary Care Provider [phone] Cristal Muhammad PharmD Unavailable [phone] Jenny Schmidt MD Primary Care Provider [phone] Alan Torres RN Unavailable [phone] Kaylene Luo Unavailable Reason for Visit * Reason Onset Date Comments Med Refill 04/18/2024 Encounter Details Date Type Department Care Team (Late st Contact Info) Description 04/18/2024 Refill [facility] MEDICINE [address] [place], [place] [phone] Amber Palacio MD [address] [place], [place] [phone] Smoker Social History Tobacco Use Types Packs/Day [...] Description 07/29/2025 10:00 AM EST Medication Management [facility] MED & PEDS [address] [place] [address] Cristal Muhammad, PharmD [address] [place] [address] 08/05/2025 1:45 PM EST Office Visit [facility] MED & PEDS [address] [place] [address] Jenny Schmidt MD [address] [place] [address] 08/06/2025 10:45 AM EST Office Visit [facility] MED & PEDS [address] [place] [address] Ayden Orellana MD [address] [place] [address] 08/20/2025 10:00 AM EST Clinical Support [facility] MED & PEDS [address] [place] [address] Katherine Casper RN [address] [place] [address] documented as of this encounter Visit Diagnoses Diagnosis Smoker Tobacco use disorder documented in this encounter Care Teams Sander Portable Machine Relationship Specialty Start Date End Date Joyce Tapia MD [address] [place] [address] PCP - General Family Medicine 06/19/12 05/01/25 Jenny Schmidt MD [address] [place] [address] PCP - General Family Medicine 05/02/25 Cristal Muhammad PharmD [address] [place] [address] Pharmacist Pharmacy 08/07/24 Alan Torres, MAKEDA [address] [place] [address] Registered Nurse Family Medicine 05/06/25 Kaylene Luo 05/06/25 documented as of this encounter
--- OUTSIDE RECORDS SUMMARY | 2025-06-26 08:58 | XMS_ITS | Encounter Summary ---
Author Organization [employer] Address 75 [facility] 7t [place] [address] Care Team Providers Care Packager And Strapper Name Role Phone Joyce Tapia MD Primary Care Provider [phone] Cristal Muhammad PharmD Unavailable [phone] Jenny Schmidt MD Primary Care Provider [phone] Alan Torres RN Unavailable [phone] Kaylene Luo Unavailable Reason for Visit * Reason Onset Date Comments Med Refill 09/24/2024 Encounter Details Date Type Department Care Team (Late st Contact Info) Description 09/24/2024 Refill [facility] MED & PEDS [address] [place], [place] [phone] Joyce Tapia MD [address] [place], [place] [phone] Status post surgical removal of nail matrix [...] Description 07/29/2025 10:00 AM EST Medication Management [facility] MED & PEDS [address] [place] [address] Cristal Muhammad, PharmD [address] [place] [address] 08/05/2025 1:45 PM EST Office Visit [facility] MED & PEDS [address] [place] [address] Jenny Schmidt MD [address] [place] [address] 08/06/2025 10:45 AM EST Office Visit [facility] MED & PEDS [address] [place] [address] Ayden Orellana MD [address] [place] [address] 08/20/2025 10:00 AM EST Clinical Support [facility] MED [facility] PEDS [address] [place] [address] Katherine Casper, MAKEDA [address] [place] [address] documented as of this encounter Visit Diagnoses Diagnosis Status post surgical removal of nail matrix of toe of left foot documented in this encounter Additional Health Concerns Assessment Noted Time PHQ-9 Depression Total Score: 7 09/15/19 9:02 AM EDT documented as of this encounter Care Teams Packager And Strapper Relationship Specialty Start Date End Date Joyce Tapia MD [address] [place] [address] PCP - General Family Medicine 06/19/12 05/01/25 Jenny Schmidt MD [address] [place] [address] PCP - General Family Medicine 05/02/25 Cristal Muhammad PharmD [address] [place] [address] Pharmacist Pharmacy 08/07/24 Alan Torres, MKAEDA [address] [place] [address] Registered Nurse Family Medicine 05/06/25 Kaylene Luo 05/06/25 documented as of this encounter
--- OUTSIDE RECORDS SUMMARY | 2025-06-26 08:58 | XMS_ITS | Encounter Summary ---
Author Organization [employer] Address [address] [facility] [address]t [place] [address] Care Team Providers Care Remote Encoding Center Manager Name Role Phone Joyce Tapia MD Primary Care Provider [phone] Cristal Muhammad PharmD Unavailable [phone] Jenny Schmidt MD Primary Care Provider [phone] Alan Torres RN Unavailable [phone] Kaylene Luo Unavailable Reason for Visit * Reason Comments Med Refill Encounter Details Date Type Department Care Team ([facility] st Contact Info) Description 04/12/2024 Refill [facility] MED [facility] PEDS [address] [place], [place] [phone] Joyce Tapia MD [address] [place], [place] [phone] Status post surgical removal of nail matrix [...] Description 07/29/2025 10:00 AM EST Medication Management [facility] MED & PEDS [address] [place] [address] Cristal Muhammad, PharmD [address] [place] [address] 08/05/2025 1:45 PM EST Office Visit [facility] MED & PEDS [address] [place] [address] Jenny Schmidt MD [address] [place] [address] 08/06/2025 10:45 AM EST Office Visit [facility] MED & PEDS [address] [place] [address] Ayden Orellana MD [address] [place] [address] 08/20/2025 10:00 AM EST Clinical Support [facility] MED & PEDS [address] [place] [address] Katherine Casper RN [address] [place] [address] documented as of this encounter Visit Diagnoses Diagnosis Status post surgical removal of nail matrix of toe of left foot documented in this encounter Care Teams Remote Encoding Center Manager Relationship Specialty Start Date End Date Joyce Tapia MD [address] [place] [address] PCP - General Family Medicine 06/19/12 05/01/25 Jenny Schmidt MD [address] [place] [address] PCP - General Family Medicine 05/02/25 Cristal Muhammad PharmD [address] [place] [address] Pharmacist Pharmacy 08/07/24 Alan Torres, MAKEDA [address] [place] [address] Registered Nurse Family Medicine 05/06/25 Kaylene Luo 05/06/25 documented as of this encounter
--- OUTSIDE RECORDS SUMMARY | 2025-06-26 08:58 | XMS_ITS | Encounter Summary ---
Author Organization [employer] Address [address] [facility] [address] [place] [address] Care Team Providers Care Beater And Pulper Feeder Name Role Phone Joyce Tapia MD Primary Care Provider [phone] Cristal Muhammad PharmD Unavailable [phone] Jenny Schmidt MD Primary Care Provider [phone] Alan Torres RN Unavailable [phone] Kaylene Luo Unavailable Reason for Visit * Reason Onset Date Comments Med Refill 07/19/2024 Encounter Details Date Type Department Care Team (Late st Contact Info) Description 07/19/2024 Refill [facility] MED & PEDS [address] [place], [place] [phone] Joyce Tapia MD [address] [place], [place] [phone] Social History Tobacco Use Types Packs/Day Years [...] [facility] MED & PEDS [address] [place] [address] Cristal Muhammad, PharmD [address] [place] [address] 08/05/2025 1:45 PM EST Office Visit [facility] MED & PEDS [address] [place] [address] Jenny Schmidt MD [address] [place] [address] 08/06/2025 10:45 AM EST Office Visit [facility] MED & PEDS [address] [place] [address] Ayden Orellana MD [address] [place] [address] 08/20/2025 10:00 AM EST Clinical Support [facility] MED & PEDS [address] [place] [address] Katherine Casper RN [address] [place] [address] documented as of this encounter Visit Diagnoses Not on filedocumented in this encounter Care Teams Beater And Pulper Feeder Relationship Specialty Start Date End Date Joyce Tapia MD [address] [place] [address] PCP - General Family Medicine 06/19/12 05/01/25 Jenny Schmidt MD [address] [place] [address] PCP - General Family Medicine 05/02/25 Cristal Muhammad PharmD [address] [place] [address] Pharmacist Pharmacy 08/07/24 Alan Torres, MAKEDA [address] [place] [address] Registered Nurse Family Medicine 05/06/25 Kaylene Luo 05/06/25 documented as of this encounter
--- OUTSIDE RECORDS SUMMARY | 2025-06-26 08:59 | XMS_ITS | Clinical Summary ---
Author Organization [facility] Address [address] [place] [address] Care Team Providers Care Doubler Operator Name Role Phone Joyce Tapia Primary Care Provider Unavailabl e Social History Tobacco Use Types Packs/Day Years Used Date Smoking Tobacco: Never Assessed Comments Unknown Sex and Gender Information Value Date Recorded Sex Assigned at Not on file Legal Sex Female 3:02 PM EST Gender Identity Not on file Sexual Orientation Not on file Plan of Treatment Not on file Care Teams Doubler Operator Relationship Specialty Start Date End Date Joyce Tapia [address] [place] [phone] PCP - General 12/22/21
--- OUTSIDE RECORDS SUMMARY | 2025-06-26 08:59 | XMS_ITS | Encounter Summary ---
Author Organization [employer] Address [address] [facility] 7t [place] [address] Care Team Providers Care Compensation Programs Manager Name Role Phone Joyce Tapia MD Primary Care Provider [phone] Cristal Muhammad PharmD Unavailable [phone] Jenny Schmidt MD Primary Care Provider [phone] Alan Torres RN Unavailable [phone] Kaylene Luo Unavailable Reason for Visit * Reason Comments Med Refill Encounter Details Date Type Department Care Team (Late st Contact Info) Description 10/24/2023 Refill [facility] MEDICINE [address] [place] [address] Joyce Tapia MD [address] [place] [address] Status post surgical removal of nail matrix [...] Description 07/29/2025 10:00 AM EST Medication Management [facility] MED [facility] PED[facility] [address] [place] [phone] Cristal Muhammad PharmD [address] [place] [address] 08/05/2025 1:45 PM EST Office Visit [facility] MED & PEDS [address] [place] [address] Jenny Schmidt MD [address] [place], [place] 08/06/2025 10:45 AM EST Office Visit [facility] MED & PEDS [address] [place] [address] Ayden Orellana MD [address] [place] [address] 08/20/2025 10:00 AM EST Clinical Support [facility] MED & PEDS [address] [place] [address] Katherine Casper RN [address] [place] [address] documented as of this encounter Visit Diagnoses Diagnosis Status post surgical removal of nail matrix of toe of left foot documented in this encounter Care Teams Compensation Programs Manager Relationship Specialty Start Date End Date Joyce Tapia MD [address] [place] [address] PCP - General Family Medicine 06/19/12 05/01/25 Jenny Schmidt MD [address] [place] [address] PCP - General Family Medicine 05/02/25 Cristal Muhammad PharmD [address] [place] [phone] Pharmacist Pharmacy 08/07/24 Alan Torres, MAKEDA [address] [place] [address] [place] [address] Registered Nurse Family Medicine 05/06/25 Kaylene Luo 05/06/25 documented as of this encounter
--- OUTSIDE RECORDS SUMMARY | 2025-06-26 08:59 | XMS_ITS | Clinical Summary ---
Author Organization [employer] Address [address] [facility] [address] [place] [address] Care Team Providers Care Commercial Finance Manager Name Role Phone Cristal Muhammad PharmD Unavailable [phone] Jenny Schmidt MD Primary Care Provider [phone] Alan Torres RN Unavailable [phone] Kaylene Luo Unavailable Allergies Active Allergy Reactions [...] daily. 025 Active Blood Glucose Monitoring Suppl (SoftGenetics Lite) w/Device kit Test blood sugar as directed 1 kit 025 Active Blood Pressure kit Check blood pressure daily 1 kit 025 Active atorvastatin (Lipitor) 40 MG tablet Take 1 tablet (40 mg) by mouth Once per day. 90 tablet 3 5 8:33 AM EST 025 Active glucagon (Baqsimi Two Pack) 3 [...] EVENING AND BEDTIME 90 tablet 11 5 11:43 AM EST 025 Active empagliflozin (Jardiance) 25 MGIndications:T ype 2 diabetes mellitus without complication, without long-term current use of insulin (HCC) Take 1 tablet (25 mg) by mouth Once per day. 30 tablet 5 Active clotrimazole (Lotrimin) 1 % vaginal creamIndication s:Vulvovaginal Candidiasis Insert one applicator per vagina at bedtime for 7 nights 45 g 025 Active Additional Information Patient not taking.Reported on 05/27/2025 naloxone (Narcan) 4 mg/0.1 mL nasal spray Administer 1 spray (4 mg) into affected nostril(s) if needed for opioid reversal. May repeat every 2-3 minutes if needed, alternating nostrils, until medical assistance becomes available. 2 each 2 025 2025 Active Ferrous Sulfate (iron) 325 (65 Fe) MG tablet TAKE ONE TABLET EVERY MORNING 90 tablet 1 5 11:43 AM EST Active sertraline (Zoloft) 100 MG tablet TAKE [...] of insulin (FORM[facility]) USE TO TEST BLOOD SUGAR THREE TIMES A DAY 100 strip 5 5 11:43 AM EST 025 Active Easy Touch Lancets 33G/Twist miscIndications :Type 2 diabetes mellitus without complication, without long-term current use of insulin ([facility]) USE TO TEST BLOOD SUGAR THREE TIMES A DAY 100 each 5 5 11:43 AM EST 025 Active clotrimazole-be tamethasone (Lotrisone) cream APPLY 1 GRAM THREE TIMES A DAY TO AFFECTED AREA NEEDED FOR ITCHING/IRRITAT ION 025 Active linaGLIPtin (Tradjenta) 5 MG tabletIndicatio ns:Type 2 diabetes mellitus without complication, without long-term current use of insulin (HCC) Take 1 tablet (5 mg) by mouth Once per day. 90 tablet 1 5 11:43 AM EST 025 Active minocycline 100 MG [...] 1 each every 15 days. 2 each 11 Active zolpidem (Ambien) 5 MG tablet TAKE ONE TABLET EVERY NIGHT AT BEDTIME NEEDED FOR SLEEP 28 tablet 1 Active gabapentin (Neurontin) 100 MG capsule TAKE 1 CAPSULE BY MOUTH TWICE A DAY 60 capsule 2 Active Minoxidil 5 % solution 1 mL twice daily >= 2 hours prior to bedtime 100 mL 5 025 Active tiZANidine (Zanaflex) 4 MG tabletIndicatio ns:Muscle spasm TAKE ONE TABLET EVERY EVENING 30 tablet 3 5 11:43 AM EST 025 Active furosemide (Lasix) 20 MG tablet TAKE 1/2 TABLET BY MOUTH EVERY DAY 45 tablet 1 025 Active oxyCODONE (Roxicodone) 10 MG immediate release tabletIndicatio ns:Chronic midline low back pain, unspecified whether sciatica present Take 1 tablet (10 mg) by mouth every 6 (six) hours if needed for severe pain for up to 14 days. Do not start before June 26, 2025. 56 tablet 5 8:52 AM EST 025 2025 Active furosemide (Lasix) 20 MG tablet Take 0.5 tablets (10 mg) by mouth Once per day. 15 tablet 11 025 2024 Discontinued(R eorder (will not trigger notification to Pharmacy)) tiZANidine (Zanaflex) 4 MG tabletIndicatio ns:Muscle spasm TAKE ONE TABLET EVERY EVENING 30 tablet 3 5 8:43 AM EST 025 2024 Discontinued oxyCODONE (Roxicodone) 5 MG immediate release tabletIndicatio ns:Status post surgical removal of nail matrix of toe of left foot TAKE ONE TABLET EVERY 6 HOURS NEEDED FOR SEVERE PAIN 30 tablet 025 2024 Discontinued(T herapy completed) zolpidem (Ambien) 5 MG tablet TAKE ONE [...] tablet 5 12:42 PM EST 025 2024 Discontinued(T herapy completed) oxyCODONE (Roxicodone) 10 MG immediate release tabletIndicatio ns:Chronic midline low back pain, unspecified whether sciatica present Take 1 tablet (10 mg) by mouth every 6 (six) hours if needed for severe pain for up to 14 days. 56 tablet 5 8:50 AM EST 025 2024 Discontinued(R eorder (will not trigger [...] Indication: fibromyalgia, neuropathic pain right hand Last PRODUCT PLANNER Agreement: 11/14/24 Tier: 3 (PRODUCT PLANNER visits Q4-6 months) GERD (gastroesophageal reflux disease) [...] Recommendations brianna Adler will reach out to [facility] and[facility] if further supports needed Status [...] Encounters Date Type Department Care Team Description 06/25/2025 Telephone [facility] [address] [place] [address] Jenny Schmidt MD Med Refill 06/20/2025 Refill [facility] [address] [place] [address] Cristal Muhammad PharmD Chronic midline low back pain, unspecified whether sciatica present 06/20/2025 Refill [facility] [address] [place] [address] Jenny Schmidt MD Chronic midline low back pain, unspecified whether sciatica present 06/17/2025 Refill [facility] [address] [place] [address] Cristal Muhammad PharmD 06/17/2025 Refill [facility] [address] [place] [address] Joyce Tapia MD 06/17/2025 Refill [facility] [address] [place] [address] Joyce Tapia MD Muscle spasm 06/10/2025 11:15 AM EST Office Visit [facility] [address] [place] [address] Jenny Schmidt MD Chronic midline low back pain, unspecified whether sciatica present (Primary Dx); Alopecia; Gastroesophageal reflux disease without esophagitis 06/10/2025 Travel 06/09/2025 Travel 06/07/2025 Telephone [facility] [address] [place] [address] Jenny Schmidt MD chart prep 06/04/2025 11:00 AM EST Telemedicine [facility] [address] [place] [address] Katherine Casper RN Chronic bilateral low back pain without sciatica 06/04/2025 Travel 06/03/2025 Refill [facility] [address] [place] [address] Cristal Muhammad PharmD Type 2 diabetes mellitus without complication, without long-term current use of insulin (HCC) 06/03/2025 Refill [facility] [address] [place] [address] Jenny Schmidt MD Status post surgical removal of nail matrix of toe of left foot 06/02/2025 Refill [facility] [address] [place] [address] Jenny Schmidt MD 06/01/2025 Refill [facility] [address] [place] [address] Cristal Muhammad PharmD Type 2 diabetes mellitus without complication, without long-term current use of insulin ([facility]) 06/01/2025 Refill [facility] [address] [place] [address] Jenny Schmidt MD Status post surgical removal of nail matrix of toe of left foot 05/30/2025 Refill [facility] [address] [place] [address] Jenny Schmidt MD 05/29/2025 Plan of Care Documentation [address] [address] 05/29/2025 Plan of Care Documentation [address] [address] 05/28/2025 Patient Outreach [address] [address] Jenny Schmidt MD Care Coordination (C3/CHW Dedra Rasheed assessment enrolled CM program ) 05/27/2025 Patient Outreach [facility] [address] [place] [address] Jenny Schmidt MD Care Management (C3CM- Initial assessment/enrollme nt) 05/24/2025 Patient Outreach [address] [address] Jenny Schmidt MD Care Coordination ([facility]/Mike Luo, appointment reminder ) 05/22/2025 Patient Outreach [facility] [address] [place] [address] Jenny Schmidt MD Care Coordination ([facility]/Mike Luo, initial assessment scheduled ) 05/20/2025 Refill [facility] [address] [place] [address] Cristal Muhammad, PharmD 05/20/2025 Refill [facility] [address] [place] [address] Cristal Muhammad, PharmD 05/20/2025 Refill [facility] [address] [place] [address] Jenny Schmidt MD Status post surgical removal of nail matrix of toe of left foot; Pain 05/18/2025 Refill [facility] [address] [place] [address] Cristal Muhammad, PharmD 05/18/2025 Refill [facility] [address] [place] [address] Jenny Schmidt MD Status post surgical removal of nail matrix of toe of left foot; Pain 05/15/2025 Refill [facility] [address] [place] [address] Cristal Muhammad, PharmD 05/15/2025 Refill [facility] [address] [place] [address] Joyce Tapia MD Pain 05/14/2025 Refill [facility] [address] [place] [address] Joyce Tapia MD Pain 05/13/2025 Refill [facility] [address] [place] [address] Ayedn Orellana MD Hidradenitis suppurativa 05/08/2025 Results Follow-Up [facility] [address] [place] [address] Jenny Schmidt MD Diabetes Eye Exam 05/08/2025 Orders Only [facility] Information Management [address] [place] [address] Saumya Blake MD 05/06/2025 10:00 AM EST Telemedicine [facility] [address], [place] [phone] Cristal Muhammad, PharmD Type 2 diabetes mellitus without complication, without long-term current use of insulin (HCC) (Primary Dx) 05/06/2025 Refill [facility] [address], [place] [phone] Joyce Tapia MD Status post surgical removal of nail matrix of toe of left foot 05/06/2025 Patient Outreach [facility] [address] [place] [address] Jenny Schmidt MD Care Coordination (C3/CHW Kaylene Luo, Linda recinos) 05/06/2025 Telephone [facility] [address], [place] [phone] Cristal Muhammad PharmShante 05/06/2025 Patient Outreach [facility] [address], [place] [phone] Jenny Schmidt MD Care Coordination (C3CM- chart review) 05/06/2025 Patient Outreach [facility] [address] [place] [address] Jenny Schmidt MD 05/06/2025 Travel 05/06/2025 Refill [facility] [address], [place] [phone] Joyce Tapia MD Status post surgical removal of nail matrix of toe of left foot 05/05/2025 Refill [facility] [address], [place] [phone] Joyce Tapia MD Status post surgical removal of nail matrix of toe of left foot 05/05/2025 Travel 05/03/2025 Travel 04/25/2025 Refill [facility] [address] [place] [address] Joyce Tapia MD 04/24/2025 Refill [facility] [address] [place] [address] Cristal Muhammad PharmD Type 2 diabetes mellitus without complication, without long-term current use of insulin (HCC) 04/21/2025 Refill [facility] [address] [place] [address] Joyce Tapia MD Status post surgical removal of nail matrix of toe of left foot 04/17/2025 Refill [facility] [address] [place] [address] Joyce Tapia MD Status post surgical removal of nail matrix of toe of left foot 04/16/2025 10:00 AM EDT Office Visit [facility] [address] [place] [address] Donnie, Dana, OD Type 2 diabetes mellitus without complication, without long-term current use of insulin (HCC) (Primary Dx) 04/16/2025 Travel 04/15/2025 Travel 04/14/2025 Refill [facility] [address] [place] [address] Joyce Tapia MD Status post surgical removal of nail matrix of toe of left foot 04/12/2025 Refill [facility] [address] [place] [address] Joyce Tapia MD Type 2 diabetes mellitus without complication, without long-term current use of insulin (HCC) 04/08/2025 Refill [facility] [address] [place] [address] Ayden Orellana MD Status post surgical removal of nail matrix of toe of left foot 04/07/2025 Refill [facility] [address] [place] [address] Joyce Tapia MD Status post surgical removal of nail matrix of toe of left foot 04/07/2025 Refill [facility] [address] [place] [address] Joyce Tapia MD 04/04/2025 Travel 04/03/2025 Travel 03/31/2025 Refill [facility] [address] [place] [address] Ayden Orellana MD Status post surgical removal of nail matrix of toe of left foot 03/27/2025 Refill [facility] [address] [place] [address] Joyce Tapia MD Pain from Last 3 Months Immunizations Immunization Administration [...] Sign Reading Time Taken Comments Blood Pressure 128/72 06/10/2025 10:59 AM EST Pulse 82 06/10/2025 10:59 AM EST Temperature 36.8 C (98.2 F) 06/10/2025 10:59 AM EST Respiratory Rate 20 06/10/2025 10:59 AM EST Oxygen Saturation 98% 06/10/2025 10:59 AM EST Inhaled Oxygen Concentration - - Weight 71.8 kg (158 lb 6.4 oz) 06/10/2025 10:59 AM EST Height 161 cm (5' 3.39 ) 06/10/2025 10:59 AM EST Body Mass Index 27.72 06/10/2025 10:59 AM EST Plan of Treatment Upcoming Encounters Date Type Department Care Team (Late st Contact Info) Description 07/29/2025 10:00 AM EST Medication Management [facility] [address] [place] [address] Cristal Muhammad, PharmD [address] [place] [address] 08/05/2025 1:45 PM EST Office Visit [facility] [address] [place] [address] Jenny Schmidt MD [address] [place] [address] 08/06/2025 10:45 AM EST Office Visit [facility] [address] [place] [address] Ayden Orellana MD [address] [place] [address] 08/20/2025 10:00 AM EST Clinical Support [facility] [address] [place] [address] Katherine Casper RN [address] [place] [address] Health Maintenance Due Date Last Done Comments [...] 07/09/2025 07/09/2024, 07/09/2024, 07/09/2024, Additional history exists Alcohol/Substance Use Screening 09/14/2025 09/14/2024 Diabetes: Urine Protein Screening 09/25/2025 09/25/2024, 08/20/2021, 08/20/2021 Lipid Panel 09/25/2025 09/25/2024, 07/09/2024 Depression Monitoring 11/24/2025 05/27/2025, 025 Disability Screening 03/05/2026 03/05/2025 Cervical Cancer Screening 03/31/2026 HPV/Cotest 03/31/2026 03/31/2021 Pap Smear 03/31/2026 03/31/2021 Eye Exam 05/08/2026 05/08/2025 Tobacco Screening 06/10/2026 06/10/2025 SDOH Screening 06/20/2026 06/20/2025 Colonoscopy 08/25/2033 08/25/2023, 02/20/2015 Colorectal Cancer Screening [...] complication, without long-term current use of insulin ([facility]) ALBUMIN, RANDOM URINE W/CREATININE Routine 09/25/2024 3:50 [...] Diabetes Eye Exam (05/08/2025 1:54 PM EST) [facility] Provider MD HEALTH MAINTENANCE Final Result * (ABNORMAL) POCT A1C (01/25/2025 4:11 PM EDT) Hemoglobin A1C 7.1(A) 4.0 - 5.7 % QC Media Lot # [id number] Lot# Expiration Date Blood 01/25/2025 4:11 PM EDT Joyce Tapia MD POINT OF CARE TEST ENTER/EDIT OR DERABLES Final Result * Albumin, Random Urine W/Creatinine (09/25/2024 3:50 PM EDT) Creatinine, Urine 83.95 mg/dL [facility] Microalbumin Urine <5.0 mg/L [facility] Microalbum Creatinine Ratio Ur TNP <30 ug/mg cr [facility] Comment:Unable to calculate albumin/creatinine ratio due to lowmicroalbumin or creatinine result. 09/25/2024 3:50 PM EDT 09/25/2024 5:55 PM EDT Joyce Tapia MD LAB URINE ORDERABLES Final Resul t [facility] [address] [place] [address] [phone] * Lipid Panel, Standard (09/25/2024 3:47 PM EDT) Triglycerides 56 <150 mg/dL [facility] Comment:Desirable Triglyceri de: less than 150 mg/dLBorderline High Triglyceride 150-199 mg/dLHigh Triglyceride: 200-499 mg/dLVery High Triglyceride: greater than or equal to 5OO mg/dL Cholesterol 119 <200 mg/dL [facility] Comment:Desirable Cholestero l: less than 200 mg/dLBorderline High Cholesterol: 200-239 mg/dLHigh Cholesterol: greater than 239 mg/dL LDL Cholesterol Calculated 47 <100 mg/dL [facility] Comment:Desirable LDL: less than 100 mg/dLNear Optimal/Above Optimal LDL: 110- 129 mg/dLBorderline High LDL: 130-159 mg/dLHigh LDL: 160-189 mg/dLVery High LDL: greater than or equal to 190 mg/dL HDL Cholesterol 61 >40 mg/dL [facility] Comment:Desirable HDL: great er than 40 mg/dL Note: This HDL assay may give artificially low results in patients with liver disease. 09/25/2024 3:47 PM EDT 09/25/2024 6:08 PM EDT us Joyce Tapia MD LAB BLOOD ORDERABLES Final Resul t [facility] [address] [place] [address] [phone] * BI Mammogram Screening Tomosynthesis Bilateral (05/28/2023 8:58 AM EST) Anatomical Region Laterality Modality Breast Bilateral Mammography 05/28/2023 8:58 AM EST Narrative 06/03/2023 8:41 AM EST [facility] [address] [place] [address] Mammography Report Signed Patient: Nayely Grover MR#: [id number] : 1960 Acct:[id number] Age/Sex: 62 / F ADM Date: 05/28/23 Loc: [facility] Attending Dr: Joyce Tapia MD Ordering Physician: Joyce Tapia MD Results: 1Negati ve Date of Service: 05/28/23 Follow Up: 1 Year From Orig inal Mammogram Procedure(s): MM tomosynthesis screening BI Accession Number(s): [id number] cc: Joyce Tapia MD EXAMINATION: MM SCREENING DIGITAL BREAST TOMOSYNTHESIS, BILATERAL CLINICAL INFORMATION: Screening. Asymptomatic. COMPARISON: Mammography: This study is compared with prior exams dating back to 2016. TECHNIQUE: Digital breast tomosynthesis is performed in [...] in OV> 06/03/23 0837 DD/ 0858 TD/TT: Document Control Specialist: Procedure Note Donotuseinterpreter, Image - 06/03/2023 [facility] [address] [place], [place] [address] Mammography Report Signed Patient: Nayely GroverMR#: [id number] : 1960Acct:[id number] Age/Sex: 62 / FADM Date: 05/28/23 Loc: MAMMO Attending Dr: Joyce Tapia MD Ordering Physician: Joyce Tapia MDResults: 1Negati ve Date of Service: 05/28/23Follow Up: 1 Year From Orig inal Mammogram Procedure(s): MM tomosynthesis screening BI Accession Number(s): [id number] cc: Joyce Tapia MD EXAMINATION: MM SCREENING DIGITAL BREAST TOMOSYNTHESIS, BILATERAL CLINICAL INFORMATION: Screening. Asymptomatic. COMPARISON: Mammography: This study is compared with prior exams dating back to 2016. TECHNIQUE: Digital breast tomosynthesis is performed in [...] Colon MD in OV> 06/03/2337 DD/ TD/TT: Document Control Specialist: Joyce Tapia MD IMG BI PROCEDURES [...] along with historic and current clinical information. Supervisor Painting : SEE COMMENT [facility] Comment: JXM, CT(ASCP) CT screening location: [place] [address] Interpretation/R esult: Negative for intraepithelial lesion or malignancy. [facility] LMP: NONE [facility] Prev. BX: NONE [facility] Prev. PAP: 12/2016 NIL/NEG [facility] SOURCE: None given [facility] Statement Of Adequacy: SEE COMMENT [facility] Comment: Satisfactory for evaluation. Endocervical/transformation zone component absent. Age and/or menstrual status not provided 03/31/2021 9:06 AM EDT Noa MARINO LAB PATHOLOGY ORDERABLES Final Result Performing Organization Address [facility] Phone Number [facility] [address] [place] [address], * HPV mRNA E6/E7 (03/31/2021 9:06 AM EDT) Pathologist [facility] HPV nRNA E6/E7 Not Detected Not Detected [facility] Comment: Methodology: Corrosion Control Engineer-Mediated Amplification This assay detects E6/E7 viral messenger RNA (mRNA) from 14 high-risk HPV types (16,18,31,33,35,39,45,51,52,56,58,59,66,68). The analytical performance characteristics of this assay have been determined by [employer]. The modifications have not been cleared or approved by the FDA. This assay has been validated pursuant to the CLIA regulations and is used for clinical purposes. For additional information, please refer to http://education.MeMed/faq/LUT880a0 (This link if provided for information/ educational purposes only.) 03/31/2021 9:06 AM EDT Noa MARINO LAB BLOOD ORDERABLES Patt l Result Performing Organization Address [facility] Phone Number [facility] [address] [place] [address], * Hm Colonoscopy (02/20/2015) Colonoscopy Normal Normal Narrative Reema Zohra - 02/20/2015 Repeat in 10 year Historical [...] Patient has chronic kidney disease 06/03/2025 Insurance [facility] C3 Care Teams Commercial Finance Manager Relationship Specialty Start Date End Date Jenny Schmidt MD [address] [place], [place] PCP - General Family Medicine 05/02/25 Cristal Muhammad PharmD [address] [place] [address] Pharmacist Pharmacy 08/07/24 Alan Torres, MAKEDA [address] [place], [place] Registered Nurse Family Medicine 05/06/25 Kaylene Luo 05/06/25
--- OUTSIDE RECORDS SUMMARY | 2025-06-26 08:59 | XMS_ITS | Encounter Summary ---
Author Organization [employer] Address 75 [facility] 7t [place] [address] Care Team Providers Care Feather Separator Name Role Phone Cristal Muhammad PharmD Unavailable [phone] Jenny Schmidt MD Primary Care Provider [phone] Alan Torres RN Unavailable [phone] Kaylene Luo Unavailable Reason for Visit * Reason Onset Date Comments Med Refill 06/03/2025 Encounter Details Date Type Department Care Team ([facility] st Contact Info) Description 06/03/2025 Refill [facility] CHC MED & PEDS [address] [place], [place] [phone] Jenny Schmidt MD 505 [place], [place] [phone] Status post surgical removal of nail matrix [...] encounter Miscellaneous Notes * Telephone Encounter - Jenny Schmidt MD - 06/17/2025 3:06 PM EST Note signed * Telephone Encounter - Rula Harris - 06/17/2025 2:14 PM EST Please sign office note from 06/10 in order to proceed with referral. Thank you. documented in this encounter Plan of Treatment Upcoming Encounters Date Type Department Care Team (Late st Contact Info) Description 07/29/2025 10:00 AM EST Medication Management [facility] MED & PEDS [address] [place] [address] Cristal Muhammad, PharmD 230 [place] [address] 08/05/2025 1:45 PM EST Office Visit [facility] [address] [place] [address] Jenny Schmidt MD 505 [place] [address] 08/06/2025 10:45 AM EST Office Visit [facility] [address] [place] [address] Ayden Orellana MD 505 [place] [address] 08/20/2025 10:00 AM EST Clinical Support [facility] MED [facility] PED[facility] [address] [place] [address] Katherine Casper RN 505 [place] [address] documented as of this encounter Goals Goal [...] manage their type 2 diabetes No Katherine Casper, MAKEDA Patient has chronic kidney disease Care Plan Patient has chronic kidney disease No Katherine Casper RN Weekly blood pressure task Care Plan Weekly blood pressure task No McMann, Katherine, RN Patient has chronic kidney disease Care Plan Patient has chronic kidney disease Katherine Shea RN documented as of this encounter Visit [...] documented as of this encounter Care Teams Feather Separator Relationship Specialty Start Date End Date Jenny Schmidt MD 505 [place] [address] PCP - General Family Medicine 05/02/25 Cristal Muhammad PharmD [address] [place] [address] Pharmacist Pharmacy 08/07/24 Alan Torres, MAKDEA 505 [place] [address] Registered Nurse Family Medicine 05/06/25 Kaylene Luo 05/06/25 documented as of this encounter
--- OUTSIDE RECORDS SUMMARY | 2025-06-26 08:59 | XMS_ITS | Encounter Summary ---
Author Organization [employer] Address 75 [facility] 7t [place] [address] Care Team Providers Care Varnish Finisher Name Role Phone Joyce Tapia MD Primary Care Provider [phone] Cristal Muhammad PharmD Unavailable [phone] Jenny Schmidt MD Primary Care Provider [phone] Aaln Torres RN Unavailable [phone] Kaylene Luo Unavailable Reason for Visit * Reason Onset Date Comments Referral 03/09/2023 Encounter Details Date Type Department Care Team ([facility] st Contact Info) Description 03/09/2023 Telephone [facility] CHC MED & PEDS 505 [place], [place] [phone] Joyce Tapia MD 505 [place], [place] [phone] Referral Social History Tobacco Use Types Packs/Day [...] wait that long. Please contact pt at [phone] documented in this encounter Plan of Treatment Upcoming Encounters Date Type Department Care Team (Late st Contact Info) Description 07/29/2025 10:00 AM EST Medication Management [facility] MED & PEDS 505 [place] [address] Cristal Muhammad PharmD 230 [place] [address] 08/05/2025 1:45 PM EST Office Visit [facility] MED & PEDS 505 [place] [address] Jenny Schmidt MD 505 [place], [place] 08/06/2025 10:45 AM EST Office Visit [facility] MED & PEDS [address] [place] [address] Ayden Orellana MD 505 [place] [address] 08/20/2025 10:00 AM EST Clinical Support [facility] MED & PEDS [address] [place] [address] Katherine Casper, MAKEDA 505 [place] [address] documented as of this encounter Visit Diagnoses Not on filedocumented in this encounter Care Teams Varnish Finisher Relationship Specialty Start Date End Date Joyce Tapia MD 230 [place] [address] PCP - General Family Medicine 06/19/12 05/01/25 Jenny Schmidt MD [address] [place] [address] PCP - General Family Medicine 05/02/25 Cristal Muhammad PharmD 230 [place] [address] Pharmacist Pharmacy 08/07/24 Alan Torres, MAKEDA 505 [place] [address] Registered Nurse Family Medicine 05/06/25 Kaylene Luo 05/06/25 documented as of this encounter
--- OUTSIDE RECORDS SUMMARY | 2025-06-26 08:59 | XMS_ITS | Encounter Summary ---
Author Organization [employer] Address 75 [facility] 7t [place] [address] Care Team Providers Care Newsstand Vendor Name Role Phone Cristal Muhammad PharmD Unavailable [phone] Jenny Schmidt MD Primary Care Provider [phone] Alan Torres RN Unavailable [phone] Kaylene Luo Unavailable Reason for Visit * Reason Onset Date Comments Med Refill 06/01/2025 Encounter Details Date Type Department Care Team (Late st Contact Info) Description 06/01/2025 Refill [facility] 230 [place] [address] Jenny Schmidt MD [address] [place] [address] Status post surgical removal of nail matrix [...] Team ([facility] st Contact Info) Description 07/29/2025 10:00 AM EST Medication Management [facility] MED & PEDS 505 [place] [address] Cristal Muhammad, PharmD 230 [place], [place] [phone] 08/05/2025 1:45 PM EST Office Visit [facility] MED & PEDS [address] [place] [address] Jenny Schmidt MD [address] [place] [address] 08/06/2025 10:45 AM EST Office Visit [facility] MED & PEDS [address] [place] [address] Ayden Orellana MD 505 [place], [place] 08/20/2025 10:00 AM EST Clinical Support [facility] MED & PEDS [address] [place] [address] Katherine Casper RN 505 [place], [place] documented as of this encounter Visit Diagnoses Diagnosis Status post surgical removal of nail matrix of toe of left foot documented in this encounter Additional Health Concerns Assessment Noted Time PHQ-9 Depression Total Score: 11 025 10:25 AM EST documented as of this encounter Care Teams Newsstand Vendor Relationship Specialty Start Date End Date Jenny Schmidt MD [address] [place] [address] PCP - General Family Medicine 05/02/25 Cristal Muhammad PharmD [address] [place] [address] Pharmacist Pharmacy 08/07/24 Alan Torres, MAKEDA [address] [place] [address] Registered Nurse Family Medicine 05/06/25 Kaylene Luo 05/06/25 documented as of this encounter
--- OUTSIDE RECORDS SUMMARY | 2025-06-26 08:59 | XMS_ITS | Encounter Summary ---
Author Organization [employer] Address 75 [facility] 7t [place] [address] Care Team Providers Care Wallboard Worker Name Role Phone Joyce Tapia MD Primary Care Provider [phone] Cristal Muhammad PharmD Unavailable [phone] Jenny Schmidt MD Primary Care Provider [phone] Alan Torres RN Unavailable [phone] Kaylene Luo Unavailable Encounter Details Date Type Department Care Team (Latest Contact Info) Description 03/21/2019 Abstract [facility] CONVERSIONS Dental, Provider, DDS Social History [...] Description 07/29/2025 10:00 AM EST Medication Management [facility] MED & PEDS 505 [place], [place] [phone] Cristal Muhammad, PharmD 230 [place] [address] 08/05/2025 1:45 PM EST Office Visit [facility] MED & PEDS 505 [place], [place] [phone] Jenny Schmidt MD 505 [place] [address] 08/06/2025 10:45 AM EST Office Visit [facility] MED & PEDS 505 [place] [address] Ayden Orellana MD 505 [place], [place] 08/20/2025 10:00 AM EST Clinical Support [facility] MED & PEDS 505 [place] [address] Katherine Casper, MAKEDA 505 [place] [address] documented as of this encounter Visit Diagnoses Not on filedocumented in this encounter Care Teams Wallboard Worker Relationship Specialty Start Date End Date Joyce Tapia MD 230 [place] [address] PCP - General Family Medicine 06/19/12 05/01/25 Jenny Schmidt MD [address] [place] [address] PCP - General Family Medicine 05/02/25 Cristal Muhammad PharmD [address] [place] [address] Pharmacist Pharmacy 08/07/24 Alan Torres, MAKEDA [address] [place] [address] Registered Nurse Family Medicine 05/06/25 Kaylene Luo 05/06/25 documented as of this encounter
--- OUTSIDE RECORDS SUMMARY | 2025-06-26 08:59 | XMS_ITS | Encounter Summary ---
Author Organization [employer] Address 75 [facility] 7t [place] [address] Care Team Providers Care Aircraft Log Clerk Name Role Phone Joyce Tapia MD Primary Care Provider [phone] Cristal Muhammad PharmD Unavailable [phone] Jenny Schmidt MD Primary Care Provider [phone] Alan Torres RN Unavailable [phone] Kaylene Luo Unavailable Reason for Visit * Reason Onset Date Comments Med Refill 04/25/2024 Encounter Details Date Type Department Care Team (Late st Contact Info) Description 04/25/2024 Telephone [facility] MEDICINE 230 [place] [address] Joyce Tapia MD [address] [place], [place] [phone] Med Refill Social History Tobacco Use Types [...] (Roxicodone) 5 MG To be sent to: [facility] documented in this encounter Plan of Treatment Upcoming Encounters Date Type Department Care Team ([facility] st Contact Info) Description 07/29/2025 10:00 AM EST Medication Management [facility] MED & PEDS 505 [place] [address] Cristal Muhammad, PharmD 230 [place] [address] 08/05/2025 1:45 PM EST Office Visit [facility] MED & PEDS 505 [place] [address] Jenny Schmidt MD 505 [place] [address] 08/06/2025 10:45 AM EST Office Visit [facility] MED & PEDS 505 [place] [address] Ayden Orellana MD 505 [place] [address] 08/20/2025 10:00 AM EST Clinical Support [facility] CHC MED & PEDS 505 [place] [address] Katherine Casper, MAKEDA 505 [place], [place] [phone] documented as of this encounter Visit Diagnoses Not on filedocumented in this encounter Care Teams Aircraft Log Clerk Relationship Specialty Start Date End Date Joyce Tapia MD 230 [place] [address] PCP - General Family Medicine 06/19/12 05/01/25 Jenny Schmidt MD [address] [place] [address] PCP - General Family Medicine 05/02/25 Cristal Muhammad PharmD 230 [place] [address] Pharmacist Pharmacy 08/07/24 Alan Torres, MAKEDA [address] [place] [address] Registered Nurse Family Medicine 05/06/25 Kaylene Luo 05/06/25 documented as of this encounter
--- OUTSIDE RECORDS SUMMARY | 2025-06-26 08:59 | XMS_ITS | Encounter Summary ---
Author Organization [employer] Address 75 [facility] 7t [place] [address] Care Team Providers Care Assistant Athletic Trainer Name Role Phone Joyce Tapia MD Primary Care Provider [phone] Cristal Muhammad PharmD Unavailable [phone] Jenny Schmidt MD Primary Care Provider [phone] Alan Torres RN Unavailable [phone] Kaylene Luo Unavailable Reason for Visit * Reason Comments Med Refill Encounter Details Date Type Department Care Team (Late st Contact Info) Description 10/11/2023 Refill [facility] MEDICINE 230 [place] [address] Ayden Orellana MD 505 [place], [place] [phone] Status post surgical removal of nail matrix [...] Management [facility] MED & PEDS [address] [place] [address] Cristal Muhammad PharmD [address] [place] [address] 08/05/2025 1:45 PM EST Office Visit [facility] MED & PEDS [address] [place] [address] Jenny Schmidt MD [address] [place] [address] 08/06/2025 10:45 AM EST Office Visit [facility] MED & PEDS [address] [place] [address] Ayden Orellana MD [address] [place] [address] 08/20/2025 10:00 AM EST Clinical Support [facility] MED & PEDS [address] [place] [address] Katherine Casper RN [address] [place] [address] documented as of this encounter Visit Diagnoses Diagnosis Status post surgical removal of nail matrix of toe of left foot documented in this encounter Care Teams Assistant Athletic Trainer Relationship Specialty Start Date End Date Joyce Tapia MD [address] [place] [address] PCP - General Family Medicine 06/19/12 05/01/25 Jenny Schmidt MD [address] [place] [address] PCP - General Family Medicine 05/02/25 Cristal Muhammad PharmD [address] [place] [address] Pharmacist Pharmacy 08/07/24 Alan Torres, MAKEDA [address] [place] [address], [place] [address] Registered Nurse Family Medicine 05/06/25 Kaylene Luo 05/06/25 documented as of this encounter
--- OUTSIDE RECORDS SUMMARY | 2025-06-26 08:59 | XMS_ITS | Encounter Summary ---
Author Organization [employer] Address 75 [facility] 7t [place] [address] Care Team Providers Care Care Worker Name Role Phone Joyce Tapia MD Primary Care Provider Cristal Muhammad PharmD Unavailable [phone] Jenny Schmidt MD Primary Care Provider [phone] Alan Torres RN Unavailable [phone] Kaylene Luo Unavailable Reason for Visit * Reason Onset Date Comments Med Refill 03/02/2025 Encounter Details Date Type Department Care Team ([facility] st Contact Info) Description 03/02/2025 Telephone [facility] CHC MED & PEDS 505 [place], [place] [phone] Ayden Orellana MD 505 [place], [place] [phone] Med Refill Social History Tobacco Use Types [...] pickup. 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 documented in this encounter Plan of Treatment Upcoming Encounters Date Type Department Care Team ([facility] st Contact Info) Description 07/29/2025 10:00 AM EST Medication Management [facility] MED & PEDS 505 [place] [address] Cristal Muhammad, PharmD 230 [place] [address] 08/05/2025 1:45 PM EST Office Visit [facility] MED & PEDS 505 [place] [address] Jenny Schmidt MD 505 [place] [address] 08/06/2025 10:45 AM EST Office Visit [facility] MED & PEDS [address] [place] [address] Ayden Orellana MD 505 [place] [address] 08/20/2025 10:00 AM EST Clinical Support [facility] MED & PEDS [address] [place] [address] Katherine Casper RN 505 [place] [address] documented as of this encounter Visit Diagnoses Diagnosis Status post surgical removal of nail matrix of toe of left foot documented in this encounter Additional Health Concerns Assessment Noted Time PHQ-9 Depression Total Score: 7 09/15/19 25 9:02 AM EDT documented as of this encounter Care Teams Care Worker Relationship Specialty Start Date End Date Joyce Tapia MD [address] [place] [address] PCP - General Family Medicine 06/19/12 05/01/25 Jenny Schmidt MD [address] [place] [address] PCP - General Family Medicine 05/02/25 Cristal Muhammad PharmD [address] [place] [address] Pharmacist Pharmacy 08/07/24 Alan Torres, MAKEDA [address] [place] [address] Registered Nurse Family Medicine 05/06/25 Kaylene Luo 05/06/25 documented as of this encounter
--- OUTSIDE RECORDS SUMMARY | 2025-06-26 08:59 | XMS_ITS | Encounter Summary ---
Author Organization [employer] Address 75 [facility] 7t [place] [address] Care Team Providers Care Exchange Specialist Name Role Phone Joyce Tapia MD Primary Care Provider [phone] Cristal Muhammad PharmD Unavailable [phone] Jenny Schmidt MD Primary Care Provider [phone] Alan Torres RN Unavailable [phone] Kaylene Luo Unavailable Reason for Visit * Reason Onset Date Comments Med Refill 04/08/2025 Encounter Details Date Type Department Care Team (Late st Contact Info) Description 04/08/2025 Refill [facility] CHC MED & PEDS 505 [place], [place] [phone] Ayden Orellana MD 505 [place], [place] [phone] Status post surgical removal of nail matrix [...] ([facility] st Contact Info) Description 07/29/2025 10:00 AM EST Medication Management [facility] MED & PEDS 505 [place] [address] Cristal Muhammad, PharmD 230 [place] [address] 08/05/2025 1:45 PM EST Office Visit [facility] MED & PEDS 505 [place] [address] Jenny Schmidt MD 505 [place] [address] 08/06/2025 10:45 AM EST Office Visit [facility] MED & PEDS 505 [place] [address] Ayden Orellana MD 505 [place] [address] 08/20/2025 10:00 AM EST Clinical Support [facility] CHC MED & PEDS 505 [place] [address] Katherine Casper, MAKEDA 505 [place] [address] documented as of this encounter Visit Diagnoses Diagnosis Status post surgical removal of nail matrix of toe of left foot documented in this encounter Additional Health Concerns Assessment Noted Time PHQ-9 Depression Total Score: 7 09/15/19 9:02 AM EDT documented as of this encounter Care Teams Exchange Specialist Relationship Specialty Start Date End Date Joyce Tapia MD 230 [place] [address] PCP - General Family Medicine 06/19/12 05/01/25 Jenny Schmidt MD [address] [place] [address] PCP - General Family Medicine 05/02/25 Cristal Muhammad PharmD [address] [place] [address] Pharmacist Pharmacy 08/07/24 Alan Torres, RN [address] [place] [address] Registered Nurse Family Medicine 05/06/25 Kaylene Lou 05/06/25 documented as of this encounter
--- OUTSIDE RECORDS SUMMARY | 2025-06-26 08:59 | XMS_ITS | Encounter Summary ---
Author Organization [employer] Address 75 [facility] 7t [place] [address] Care Team Providers Care Oceanographic Meteorologist Name Role Phone Cristal Muhammad PharmD Unavailable [phone] Jenny Schmidt MD Primary Care Provider [phone] Alan Torres RN Unavailable [phone] Kaylene Luo Unavailable Reason for Visit * Reason Onset Date Comments Med Refill 06/03/2025 Encounter Details Date Type Department Care Team (Late st Contact Info) Description 06/03/[address] [facility] CHC MED & PEDS [address] [place], [place] [phone] Cristal Muhammad, PharmD 230 [place], [place] [phone] Type 2 diabetes mellitus without complication, without [...] pt, [facility] ELECTRO MECHANICAL TECHNICIAN [place] converted to a televisit on 06/04/25. Pt verbalized understanding. documented in this encounter Plan of Treatment Upcoming Encounters Date Type Department Care Team (Late st Contact Info) Description 07/29/2025 10:00 AM EST Medication Management [facility] MED & PEDS 505 [place] [address] Cristal Muhammad PharmD 230 [place] [address] 08/05/2025 1:45 PM EST Office Visit [facility] MED & PEDS 505 [place] [address] Jenny Schmidt MD 505 [place] [address] 08/06/2025 10:45 AM EST Office Visit [facility] MED & PEDS [address] [place] [address] Ayden Orellana MD 505 [place] [address] 08/20/2025 10:00 AM EST Clinical Support [facility] MED & PEDS 505 [place] [address] Katherine Casper, MAKEDA 505 [place] [address] documented as of this encounter Goals Goal Patient Goal Type Associated Problems Recent Progress Patient-Stated? Author Help patients manage their type 2 diabetes Care Plan Help patients manage their type 2 diabetes No Katherine Casper, MAKEDA Weekly blood pressure task Care Plan Weekly blood pressure task No Katherine Casper, MAKEDA Help patients manage their type 2 diabetes Care Plan Help patients manage their type 2 diabetes No Katherine Casper, MAKEDA Patient has chronic kidney disease Care Plan Patient has chronic kidney disease No Katherine Casper, MAKEDA Weekly blood pressure task Care Plan Weekly blood pressure task No Katherine Casper, MAKEDA Patient has chronic kidney disease Care Plan Patient has chronic kidney disease No Katherine Casper, MAKEDA documented as of this encounter Visit Diagnoses [...] documented as of this encounter Care Teams Oceanographic Meteorologist Relationship Specialty Start Date End Date Jenny Schmidt MD 505 [place] [address] PCP - General Family Medicine 05/02/25 Cristal Muhammad PharmD 230 [place] [address] Pharmacist Pharmacy 08/07/24 Alan Torres, MAKEDA 505 [place] [address] Registered Nurse Family Medicine 05/06/25 Kaylene Luo 05/06/25 documented as of this encounter
--- OUTSIDE RECORDS SUMMARY | 2025-06-26 08:59 | XMS_ITS | Encounter Summary ---
Author Organization [employer] Address 75 [facility] 7t [place] [address] Care Team Providers Care Food Service Specialist Name Role Phone Joyce Tapia MD Primary Care Provider [phone] Cristal Muhammad PharmD Unavailable [phone] Jenny Schmidt MD Primary Care Provider [phone] Alan Torres RN Unavailable [phone] Kaylene Luo Unavailable Reason for Visit * Reason Onset Date Comments Med Refill 04/11/2024 Encounter Details Date Type Department Care Team ([facility] st Contact Info) Description 04/11/2024 Telephone [facility] MED & PEDS 505 [place], [place] [phone] Joyce Tapia MD 505 [place], [place] [phone] Med Refill Social History Tobacco Use Types [...] immediate release tablet To be sent to: [facility] - [place], [place] - [address] [place] [address] documented in this encounter Plan of Treatment Upcoming Encounters Date Type Department Care Team ([facility] st Contact Info) Description 07/29/2025 10:00 AM EST Medication Management [facility] MED & PEDS 505 [facility] [address] Cristal Muhammad, PharmD 230 [place] [address] 08/05/2025 1:45 PM EST Office Visit [facility] MED & PEDS [facility] [place] [address] Jenny Schmidt MD 505 [place] [address] 08/06/2025 10:45 AM EST Office Visit [facility] MED & PEDS 505 [place], [place] [phone] Ayden Orellana MD 505 [place], [place] 08/20/2025 10:00 AM EST Clinical Support [facility] MED & PEDS 505 [place], [place] [phone] Katherine Casper, MAKEDA 505 [place], [place] documented as of this encounter Visit Diagnoses Not on filedocumented in this encounter Care Teams Food Service Specialist Relationship Specialty Start Date End Date Joyce Tapia MD [address] [place] [address] PCP - General Family Medicine 06/19/12 05/01/25 Jenny Schmidt MD [address] [place] [address] PCP - General Family Medicine 05/02/25 Cristal Muhammad PharmD [address] [place] [address] Pharmacist Pharmacy 08/07/24 Alan Torres, MAKEDA [address] [place] [address] Registered Nurse Family Medicine 05/06/25 Kaylene Luo 05/06/25 documented as of this encounter
--- OUTSIDE RECORDS SUMMARY | 2025-06-26 08:59 | XMS_ITS | Encounter Summary ---
Author Organization [employer] Address 75 [facility] 7t [place] [address] Care Team Providers Care Welder Setter Resistance Machine Name Role Phone Joyce Tapia MD Primary Care Provider [phone] Cristal Muhammad PharmD Unavailable [phone] Jenny Schmidt MD Primary Care Provider [phone] Alan Torres RN Unavailable [phone] Kaylene Luo Unavailable Reason for Visit * Reason Onset Date Comments Med Refill 04/19/2024 Encounter Details Date Type Department Care Team (Late st Contact Info) Description 04/19/2024 Refill [facility] MEDICINE [address] [place] [address] Joyce Tapia MD [address] [place], [place] [phone] Status post surgical removal of nail matrix [...] 10:00 AM EST Medication Management [facility] MED & PEDS [address] [place] [address] Cristal Muhammad, PharmD [address] [place] [address] 08/05/2025 1:45 PM EST Office Visit [facility] MED & PEDS [address] [place] [address] Jenny Schmidt MD 505 [place] [address] 08/06/2025 10:45 AM EST Office Visit [facility] MED & PEDS [address] [place] [address] Ayden Orellana MD 505 [place] [address] 08/20/2025 10:00 AM EST Clinical Support [facility] MED & PEDS [address] [place] [address] Katherine Casper RN 505 [place] [address] documented as of this encounter Visit Diagnoses Diagnosis Status post surgical removal of nail matrix of toe of left foot documented in this encounter Care Teams Welder Setter Resistance Machine Relationship Specialty Start Date End Date Joyce Tapia MD [address] [place] [address] PCP - General Family Medicine 06/19/12 05/01/25 Jenny Schmidt MD 505 [place] [address] PCP - General Family Medicine 05/02/25 Cristal Muhammad PharmD [address] [place] [address] Pharmacist Pharmacy 08/07/24 Alan Torres, MAKEDA 505 [place] [address] Registered Nurse Family Medicine 05/06/25 Kaylene Luo 05/06/25 documented as of this encounter
--- OUTSIDE RECORDS SUMMARY | 2025-06-26 08:59 | XMS_ITS | Encounter Summary ---
Author Organization [employer] Address 75 [facility] 7t [place] [address] Care Team Providers Care Director Product Management Name Role Phone Joyce Tapia MD Primary Care Provider [phone] Cristal Muhammad PharmD Unavailable [phone] Jenny Schmidt MD Primary Care Provider [phone] Alan Torres RN Unavailable [phone] Kaylene Luo Unavailable Reason for Visit * Reason Onset Date Comments Med Refill 07/13/2024 Encounter Details Date Type Department Care Team (Late st Contact Info) Description 07/13/2024 Refill [facility] MEDICINE [address] [place], [place] [phone] Amber Palacio MD 230 [place], [place] [phone] Smoker Social History Tobacco Use Types Packs/Day [...] [facility] 505 [place] [address] Cristal Muhammad, PharmD 230 [place] [address] 08/05/2025 1:45 PM EST Office Visit [facility] MED & PEDS 505 [place] [address] Jenny Schmidt MD 505 [place] [address] 08/06/2025 10:45 AM EST Office Visit [facility] MED & PEDS 505 [place] [address] Ayden Orellana MD 505 [place] [address] 08/20/2025 10:00 AM EST Clinical Support [facility] MED & PEDS 505 [place] [address] Katherine Casper RN 505 [place] [address] documented as of this encounter Visit Diagnoses Diagnosis Smoker Tobacco use disorder documented in this encounter Care Teams Director Product Management Relationship Specialty Start Date End Date Joyce Tapia MD 230 [place] [address] PCP - General Family Medicine 06/19/12 05/01/25 Jenny Schmidt MD 505 [place] [address] PCP - General Family Medicine 05/02/25 Cristal Muhammad PharmD 230 [place] [address] Pharmacist Pharmacy 08/07/24 Alan Torres, MAKEDA 505 [place] [address] Registered Nurse Family Medicine 05/06/25 Kaylene Luo 05/06/25 documented as of this encounter
--- OUTSIDE RECORDS SUMMARY | 2025-06-26 08:59 | XMS_ITS | Encounter Summary ---
Author Organization [employer] Address 75 [facility] 7t [place] [address] Care Team Providers Care Dry Box Tender Name Role Phone Joyce Tapia MD Primary Care Provider [phone] Cristal Muhammad PharmD Unavailable [phone] Jenny Schmidt MD Primary Care Provider [phone] Alan Torres RN Unavailable [phone] Kaylene Luo Unavailable Reason for Visit * Reason Onset Date Comments Med Refill 07/27/2024 Encounter Details Date Type Department Care Team (Late st Contact Info) Description 07/27/2024 Refill [facility] MEDICINE 230 [place] [address] Emerson Keith MD 505 [place], [place] [phone] Status post surgical removal of nail matrix [...] Description 07/29/2025 10:00 AM EST Medication Management [facility] MED & PEDS 505 [place] [address] Cristal Muhammad, PharmD 230 [place] [address] 08/05/2025 1:45 PM EST Office Visit [facility] MED & PEDS 505 [place] [address] Jenny Schmidt MD 505 [place] [address] 08/06/2025 10:45 AM EST Office Visit [facility] MED & PEDS 505 [place] [address] Ayden Orellana MD 505 [place] [address] 08/20/2025 10:00 AM EST Clinical Support [facility] MED & PEDS 505 [place] [address] Katherine Casper RN 505 [place] [address] documented as of this encounter Visit Diagnoses Diagnosis Status post surgical removal of nail matrix of toe of left foot documented in this encounter Care Teams Dry Box Tender Relationship Specialty Start Date End Date Joyce Tapia MD 230 [place] [address] PCP - General Family Medicine 06/19/12 05/01/25 Jenny Schmidt MD 505 [place] [address] PCP - General Family Medicine 05/02/25 Cristal Muhammad PharmD 230 [place] [address] Pharmacist Pharmacy 08/07/24 Alan Torres RN 505 [place] [address] Registered Nurse Family Medicine 05/06/25 Kaylene Luo 05/06/25 documented as of this encounter
--- OUTSIDE RECORDS SUMMARY | 2025-06-26 08:59 | XMS_ITS | Encounter Summary ---
Author Organization [employer] Address 75 [facility] 7t [place] [address] Care Team Providers Care Gas Plumber Name Role Phone Joyce Tapia MD Primary Care Provider [phone] Cristal Muhammad PharmD Unavailable [phone] Jenny Schmidt MD Primary Care Provider [phone] Alan Torres RN Unavailable [phone] Kaylene Luo Unavailable Reason for Visit * Reason Onset Date Comments Appt 08/09/2024 Encounter Details Date Type Department Care Team (Late st Contact Info) Description 08/09/2024 Telephone [facility] MEDICINE 230 [place] [address] Joyce Tapia MD [address] [place], [place] [phone] Appt Social History Tobacco Use Types Packs/Day [...] can be changed for a phone visit. [phone] documented in this encounter Plan of Treatment Upcoming Encounters Date Type Department Care Team ([facility] st Contact Info) Description 07/29/2025 10:00 AM EST Medication Management [facility] MED & PEDS 505 [place] [address] Cristal Muhammad PharmD 230 [place] [address] 08/05/2025 1:45 PM EST Office Visit [facility] MED & PEDS 505 [place] [address] Jenny Schmidt MD 505 [place] [address] 08/06/2025 10:45 AM EST Office Visit [facility] MED & PEDS 505 [place] [address] Ayden Orellana MD 505 [place] [address] 08/20/2025 10:00 AM EST Clinical Support [facility] MED & PEDS 505 [place] [address] Katherine Casper, MAKEDA 505 [place], [place] [phone] documented as of this encounter Visit Diagnoses Not on filedocumented in this encounter Care Teams Gas Plumber Relationship Specialty Start Date End Date Joyce Tapia MD 230 [place] [address] PCP - General Family Medicine 06/19/12 05/01/25 Jenny Schmidt MD 505 [place] [address] PCP - General Family Medicine 05/02/25 Cristal Muhammad PharmD 230 [place] [address] Pharmacist Pharmacy 08/07/24 Alan Torres, MAKEDA [address] [place] [address] Registered Nurse Family Medicine 05/06/25 Kaylene Luo 05/06/25 documented as of this encounter
--- OUTSIDE RECORDS SUMMARY | 2025-06-26 08:59 | XMS_ITS | Encounter Summary ---
Author Organization [employer] Address 75 [facility] 7t [place] [address] Care Team Providers Care Credit Support Specialist Name Role Phone Joyce Tapia MD Primary Care Provider [phone] Cristal Muhammad PharmD Unavailable [phone] Jenny Schmidt MD Primary Care Provider [phone] Alan Torres RN Unavailable [phone] Kaylene Luo Unavailable Encounter Details Date Type Department Care Team ([facility] st Contact Info) Description 2024 Orders Only [facility] MED & PEDS [address] [place], [place] [phone] Joyce Tapia MD 505 [place], [place] [phone] Social History Tobacco Use Types Packs/Day Years [...] [facility] MED & PEDS [address] [place] [address] Cristal Muhammad, PharmD 230 [place] [address] 08/05/2025 1:45 PM EST Office Visit [facility] MED & PEDS 505 [place] [address] Jenny Schmidt MD 505 [place] [address] 08/06/2025 10:45 AM EST Office Visit [facility] MED & PEDS 505 [place] [address] Ayden Orellana MD 505 [place] [address] 08/20/2025 10:00 AM EST Clinical Support [facility] MED & PEDS 505 [place] [address] Katherine Casper, MAKEDA 505 [place] [address] documented as of this encounter Visit Diagnoses Not on filedocumented in this encounter Additional Health Concerns Assessment Noted Time PHQ-9 Depression Total Score: 7 09/15/19 9:02 AM EDT documented as of this encounter Care Teams Credit Support Specialist Relationship Specialty Start Date End Date Joyce Tapia MD 230 [place] [address] PCP - General Family Medicine 06/19/12 05/01/25 Jenny Schmidt MD 505 [place] [address] PCP - General Family Medicine 05/02/25 Cristal Muhammad PharmD 230 [place] [address] Pharmacist Pharmacy 08/07/24 Alan Torres, MAKEDA 505 [place] [address] Registered Nurse Family Medicine 05/06/25 Kaylene Luo 05/06/25 documented as of this encounter
--- OUTSIDE RECORDS SUMMARY | 2025-06-26 08:59 | XMS_ITS | Encounter Summary ---
Author Organization [employer] Address 75 [facility] 7t [place] [address] Care Team Providers Care Curator Of Collections Name Role Phone Joyce Tapia MD Primary Care Provider [phone] Cristal Muhammad PharmD Unavailable [phone] Jenny Schmidt MD Primary Care Provider [phone] Alan Torres RN Unavailable [phone] Kaylene Luo Unavailable Reason for Visit * Reason Onset Date Comments Med Refill 04/14/2025 Encounter Details Date Type Department Care Team (Late st Contact Info) Description 04/14/2025 Refill [facility] MED & PEDS [address] [place], [place] [phone] Joyce Tapia MD 505 [place], [place] [phone] Status post surgical removal of nail matrix [...] [facility] 505 [place] [address] Cristal Muhammad PharmD 230 [place] [address] 08/05/2025 1:45 PM EST Office Visit [facility] MED & PEDS 505 [place] [address] Jenny Schmidt MD 505 [place] [address] 08/06/2025 10:45 AM EST Office Visit [facility] MED & PEDS 505 [place] [address] Ayden Orellana MD 505 [place] [address] 08/20/2025 10:00 AM EST Clinical Support [facility] MED & PEDS 505 [place] [address] Katherine Casper, MAKEDA 505 [place] [address] documented as of this encounter Visit Diagnoses Diagnosis Status post surgical removal of nail matrix of toe of left foot documented in this encounter Additional Health Concerns Assessment Noted Time PHQ-9 Depression Total Score: 7 09/15/19 9:02 AM EDT documented as of this encounter Care Teams Curator Of Collections Relationship Specialty Start Date End Date Joyce Tapia MD [address] [place] [address] PCP - General Family Medicine 06/19/12 05/01/25 Jenny Schmidt MD [address] [place] [address] PCP - General Family Medicine 05/02/25 Cristal Muhammad PharmD [address] [place] [address] Pharmacist Pharmacy 08/07/24 Alan Torres, MAKEDA [address] [place] [address] Registered Nurse Family Medicine 05/06/25 Kaylene Luo 05/06/25 documented as of this encounter
--- OUTSIDE RECORDS SUMMARY | 2025-06-26 08:59 | XMS_ITS | Encounter Summary ---
Author Organization [employer] Address 75 [facility] 7t [place] [address] Care Team Providers Care Supervisor Unloading Name Role Phone Joyce Tapia MD Primary Care Provider [phone] Cristal Muhammad PharmD Unavailable [phone] Jenny Schmidt MD Primary Care Provider [phone] Alan Torres RN Unavailable [phone] Kaylene Luo Unavailable Reason for Visit * Reason Onset Date Comments Med Refill 05/08/2024 Encounter Details Date Type Department Care Team (Late st Contact Info) Description 05/08/2024 Refill [facility] MEDICINE 230 [place] [address] Joyce Tapia MD [address] [place], [place] [phone] Muscle spasm Social History Tobacco Use Types [...] [facility] [address] [place] [address] Cristal Muhammad, PharmD 230 [place] [address] 08/05/2025 1:45 PM EST Office Visit [facility] MED & PEDS [address] [place] [address] Jenny Schmidt MD 505 [place] [address] 08/06/2025 10:45 AM EST Office Visit [facility] MED & PEDS [address] [place] [address] Ayden Orellana MD [address] [place] [address] 08/20/2025 10:00 AM EST Clinical Support [facility] MED & PEDS [address] [place] [address] Katherine Casper RN 505 [place] [address] documented as of this encounter Visit Diagnoses Diagnosis Muscle spasm Spasm of muscle documented in this encounter Care Teams Supervisor Unloading Relationship Specialty Start Date End Date Joyce Tapia MD 230 [place] [address] PCP - General Family Medicine 06/19/12 05/01/25 Jenny Schmidt MD 505 [place] [address] PCP - General Family Medicine 05/02/25 Cristal Muhammad PharmD 230 [place] [address] Pharmacist Pharmacy 08/07/24 Alan Torres, MAKEDA 505 [place] [address] Registered Nurse Family Medicine 05/06/25 Kaylene Luo 05/06/25 documented as of this encounter
--- OUTSIDE RECORDS SUMMARY | 2025-06-26 08:59 | XMS_ITS | Encounter Summary ---
Author Organization [employer] Address 75 [facility] 7t [place] [address] Care Team Providers Care A Class Lineman Name Role Phone Joyce Tapia MD Primary Care Provider [phone] Cristal Muhammad PharmD Unavailable [phone] Jenny Schmidt MD Primary Care Provider [phone] Alan Torres RN Unavailable [phone] Kaylene Luo Unavailable Reason for Visit * Reason Onset Date Comments Med Refill 09/11/2024 Encounter Details Date Type Department Care Team (Late st Contact Info) Description 09/11/2024 Telephone [facility] MEDICINE 230 [place] [address] Joyce Tapia MD [address] [place], [place] [phone] Med Refill Social History Tobacco Use Types [...] immediate release tablet To be sent to: [facility]/pharmacy #[id number] NAKUL RYDER - [address] [place] [address] documented in this encounter Plan of Treatment Upcoming Encounters Date Type Department Care Team ([facility] st Contact Info) Description 07/29/2025 10:00 AM EST Medication Management [facility] MED & PEDS 505 [place] [address] Cristal Muhammad, PharmD 230 [place] [address] 08/05/2025 1:45 PM EST Office Visit [facility] MED & PEDS 505 [place] [address] Jenny Schmidt MD 505 [place] [address] 08/06/2025 10:45 AM EST Office Visit [facility] MED & PEDS 505 [place] [address] Ayden Orelalna MD 505 [place] [address] 08/20/2025 10:00 AM EST Clinical Support [facility] MED & PEDS [address] [place] [address] Katherine Casper, MAKEDA 505 [place] [address] documented as of this encounter Visit Diagnoses Not on filedocumented in this encounter Care Teams A Class Lineman Relationship Specialty Start Date End Date Joyce Tapia MD [address] [place] [address] PCP - General Family Medicine 06/19/12 05/01/25 Jenny Schmidt MD [address] [place] [address] PCP - General Family Medicine 05/02/25 Cristal Muhammad PharmD [address] [place] [address] Pharmacist Pharmacy 08/07/24 Alan Torres, MAKEDA [address] [place] [address] Registered Nurse Family Medicine 05/06/25 Kaylene Luo 05/06/25 documented as of this encounter
--- OUTSIDE RECORDS SUMMARY | 2025-06-26 08:59 | XMS_ITS | Encounter Summary ---
Author Organization [employer] Address 75 [facility] 7t [place] [address] Care Team Providers Care Laminating Machine Feeder Name Role Phone Joyce Tapia MD Primary Care Provider [phone] Cristal Muhammad PharmD Unavailable [phone] Jenny Schmidt MD Primary Care Provider [phone] Alan Torres RN Unavailable [phone] Kaylene Luo Unavailable Reason for Visit * Reason Onset Date Comments Med Refill 08/15/2024 Encounter Details Date Type Department Care Team (Late st Contact Info) Description 08/15/2024 Refill [facility] MED & PEDS 505 [place], [place] [phone] Joyce Tapia MD 505 [place], [place] [phone] Status post surgical removal of nail matrix [...] [facility] MED & PEDS 505 [place] [address] Cristal Muhammad, PharmD 230 [place] [address] 08/05/2025 1:45 PM EST Office Visit [facility] MED & PEDS 505 [place] [address] Jenny Schmidt MD 505 [place] [address] 08/06/2025 10:45 AM EST Office Visit [facility] MED & PEDS 505 [place] [address] Ayden Orellana MD 505 [place] [address] 08/20/2025 10:00 AM EST Clinical Support [facility] MED & PEDS 505 [place] [address] Katherine Casper RN 505 [place] [address] documented as of this encounter Visit Diagnoses Diagnosis Status post surgical removal of nail matrix of toe of left foot documented in this encounter Care Teams Laminating Machine Feeder Relationship Specialty Start Date End Date Joyce Tapia MD 230 [place] [address] PCP - General Family Medicine 06/19/12 05/01/25 Jenny Schmidt MD 505 [place] [address] PCP - General Family Medicine 05/02/25 Cristal Muhammad PharmD 230 [place] [address] Pharmacist Pharmacy 08/07/24 Alan Torres RN 505 [place] [address] Registered Nurse Family Medicine 05/06/25 Kaylene Luo 05/06/25 documented as of this encounter
--- OUTSIDE RECORDS SUMMARY | 2025-06-26 08:59 | XMS_ITS | Encounter Summary ---
Author Organization [employer] Address 75 [facility] 7t [place] [address] Care Team Providers Care Evaporator Helper Name Role Phone Joyce Tapia MD Primary Care Provider [phone] Cristal Muhammad PharmD Unavailable [phone] Jenny Schmidt MD Primary Care Provider [phone] Alan Torres RN Unavailable [phone] Kaylene Luo Unavailable Reason for Visit * Reason Onset Date Comments Med Refill 09/05/2024 Encounter Details Date Type Department Care Team (Late st Contact Info) Description 09/05/2024 Refill [facility] MED & PEDS [address] [place], [place] [phone] Joyce Tapia MD 505 [place], [place] [phone] Status post surgical removal of nail matrix [...] [facility] MED & PEDS [address] [place] [address] Cristal Muhammad, PharmD 230 [place] [address] 08/05/2025 1:45 PM EST Office Visit [facility] MED & PEDS [address] [place] [address] Jenny Schmidt MD 505 [place] [address] 08/06/2025 10:45 AM EST Office Visit [facility] MED & PEDS [address] [place] [address] Ayden Orellana MD 505 [place] [address] 08/20/2025 10:00 AM EST Clinical Support [facility] MED & PEDS [address] [place] [address] Katherine Casper RN 505 [place] [address] documented as of this encounter Visit Diagnoses Diagnosis Status post surgical removal of nail matrix of toe of left foot documented in this encounter Care Teams Evaporator Helper Relationship Specialty Start Date End Date Joyce Tapia MD 230 [place] [address] PCP - General Family Medicine 06/19/12 05/01/25 Jenny Schmidt MD 505 [place] [address] PCP - General Family Medicine 05/02/25 Cristal Muhammad PharmD 230 [place] [address] Pharmacist Pharmacy 08/07/24 Alan Torres RN 505 [place] [address] Registered Nurse Family Medicine 05/06/25 Kaylene Luo 05/06/25 documented as of this encounter
--- OUTSIDE RECORDS SUMMARY | 2025-06-26 08:59 | XMS_ITS ---
Author Organization [employer] Address [address] [place] [address] 7t [place] [address] Care Team Providers Care Airline Pilot Name Role Phone Cristal Muhammad PharmD Unavailable [phone] Jenny Schmidt MD Primary Care Provider [phone] Alan Torres RN Unavailable [phone] Kaylene Luo Unavailable [facility] Status:Enrolled (Active) Start date:10/22/2022 Enrollment date:10/22/2022 Case Team Name Relationship Phone Katherine Casper RN(Responsible Staff) Registered Nurse Continued Care and Services Coordination
--- OUTSIDE RECORDS SUMMARY | 2025-06-26 08:59 | XMS_ITS | Encounter Summary ---
Author Organization [employer] Address 75 [facility] 7t [place] [address] Care Team Providers Care Card Room Manager Name Role Phone Joyce Tapia MD Primary Care Provider [phone] Cristal Muhammad PharmD Unavailable [phone] Jenny Schmidt MD Primary Care Provider [phone] Alan Torres RN Unavailable [phone] Kaylene Luo Unavailable Reason for Visit * Reason Comments Med Refill Encounter Details Date Type Department Care Team (Late st Contact Info) Description 11/04/2023 Refill [facility] MED & PEDS 505 [place], [place] [phone] Joyce Tapia MD 505 [place], [place] [phone] Status post surgical removal of nail matrix [...] [facility] [address] [place] [address] Cristal Muhammad PharmD [address] [place] [address] 08/05/2025 1:45 PM EST Office Visit [facility] MED & PEDS [address] [place] [address] Jenny Schmidt MD [address] [place] [address] 08/06/2025 10:45 AM EST Office Visit [facility] MED & PEDS [address] [place] [address] Ayden Orellana MD [address] [place] [address] 08/20/2025 10:00 AM EST Clinical Support [facility] MED & PEDS [address] [place] [address] Katherine Casper RN [address] [place] [address] documented as of this encounter Visit Diagnoses Diagnosis Status post surgical removal of nail matrix of toe of left foot documented in this encounter Care Teams Card Room Manager Relationship Specialty Start Date End Date Joyce Tapia MD [address] [place] [address] PCP - General Family Medicine 06/19/12 05/01/25 Jenny Schmidt MD [address] [place] [address] PCP - General Family Medicine 05/02/25 Cristal Muhammad PharmD [address] [place] [address] Pharmacist Pharmacy 08/07/24 Alan Torres, MAKEDA [address] [place] [address] [address] Registered Nurse Family Medicine 05/06/25 Kaylene Luo 05/06/25 documented as of this encounter
--- OUTSIDE RECORDS SUMMARY | 2025-06-26 08:59 | XMS_ITS | Encounter Summary ---
Author Organization [employer] Address 75 [facility] 7t [place] [address] Care Team Providers Care Training Representative Name Role Phone Joyce Tapia MD Primary Care Provider [phone] Cristal Muhammad PharmD Unavailable [phone] Jenny Schmidt MD Primary Care Provider [phone] Alan Torres RN Unavailable [phone] Kaylene Luo Unavailable Reason for Visit * Reason Onset Date Comments Med Refill 07/12/2024 Encounter Details Date Type Department Care Team (Late st Contact Info) Description 07/12/2024 Refill [facility] MED & PEDS 505 [place], [place] [phone] Joyce Tapia MD 505 [place], [place] [phone] Status post surgical removal of nail matrix [...] [facility] MED & PEDS 505 [place] [address] Cristal Muhammad, PharmD 230 [place] [address] 08/05/2025 1:45 PM EST Office Visit [facility] MED & PEDS 505 [place] [address] Jenny Schmidt MD 505 [place] [address] 08/06/2025 10:45 AM EST Office Visit [facility] MED & PEDS 505 [place] [address] Ayden Orellana MD 505 [place] [address] 08/20/2025 10:00 AM EST Clinical Support [facility] MED & PEDS 505 [place] [address] Katherine Casper RN 505 [place] [address] documented as of this encounter Visit Diagnoses Diagnosis Status post surgical removal of nail matrix of toe of left foot documented in this encounter Care Teams Training Representative Relationship Specialty Start Date End Date Joyce Tapia MD 230 [place] [address] PCP - General Family Medicine 06/19/12 05/01/25 Jenny Schmidt MD 505 [place] [address] PCP - General Family Medicine 05/02/25 Cristal Muhammad PharmD 230 [place] [address] Pharmacist Pharmacy 08/07/24 Alan Torres RN 505 [place] [address] Registered Nurse Family Medicine 05/06/25 Kaylene Luo 05/06/25 documented as of this encounter
--- OUTSIDE RECORDS SUMMARY | 2025-06-26 08:59 | XMS_ITS | Encounter Summary ---
Author Organization [employer] Address [address] [facility] 7t [place] [address] Care Team Providers Care Timekeeping Supervisor Name Role Phone Joyce Tapia MD Primary Care Provider [phone] Cristal Muhammad PharmD Unavailable [phone] Jenny Schmidt MD Primary Care Provider [phone] Alan Torres RN Unavailable [phone] Kaylene Luo Unavailable Reason for Visit * Reason Onset Date Comments Med Refill 10/24/2023 Encounter Details Date Type Department Care Team (Late st Contact Info) Description 10/24/2023 Telephone [facility] MEDICINE 230 [place] [address] Joyce Tapia MD [address] [place], [place] [phone] Med Refill Social History Tobacco Use Types [...] sent to: [facility] - [address] documented in this encounter Plan of Treatment Upcoming Encounters Date Type Department Care Team ([facility] st Contact Info) Description 07/29/2025 10:00 AM EST Medication Management [facility] MED & PEDS [address] [place] [address] Cristal Muhammad PharmD 230 [place] [address] 08/05/2025 1:45 PM EST Office Visit [facility] [address] [place] [address] Jenny Schmidt MD [address] [place] [address] 08/06/2025 10:45 AM EST Office Visit [facility] [address] [place] [address] Ayden Orellana MD [address] [place] [address] 08/20/2025 10:00 AM EST Clinical Support [facility] [address] [place] [address] Katherine Casper, MAKEDA [address] [place] [address] documented as of this encounter Visit Diagnoses Not on filedocumented in this encounter Care Teams Timekeeping Supervisor Relationship Specialty Start Date End Date Joyce Tapia MD 230 [place] [address] PCP - General Family Medicine 06/19/12 05/01/25 Jenny Schmidt MD [address] [place] [address] PCP - General Family Medicine 05/02/25 Cristal Muhammad PharmD 230 [place] [address] Pharmacist Pharmacy 08/07/24 Alan Torres, MAKEDA [address] [place] [address] Registered Nurse Family Medicine 05/06/25 Kaylene Luo 05/06/25 documented as of this encounter
--- OUTSIDE RECORDS SUMMARY | 2025-06-26 08:59 | XMS_ITS | Encounter Summary ---
Author Organization [employer] Address 75 [facility] 7t [place] [address] Care Team Providers Care Charge Lpn Name Role Phone Joyce Tapia MD Primary Care Provider [phone] Cristal Muhammad PharmD Unavailable [phone] Jenny Schmidt MD Primary Care Provider [phone] Alan Torres RN Unavailable [phone] Kaylene Luo Unavailable Reason for Visit * Reason Onset Date Comments Med Refill 03/17/2023 Encounter Details Date Type Department Care Team (Late st Contact Info) Description 03/17/2023 Telephone [facility] MED & PEDS 505 [place], [place] [phone] Joyce Tapia MD 505 [place], [place] [phone] Med Refill Social History Tobacco Use Types [...] Description 07/29/2025 10:00 AM EST Medication Management [facility] MED & PEDS 505 [place] [address] Cristal Muhammad PharmD 230 [place] [address] 08/05/2025 1:45 PM EST Office Visit [facility] MED & PEDS 505 [place] [address] Jenny Schmidt MD 505 [place] [address] 08/06/2025 10:45 AM EST Office Visit [facility] MED & PEDS [address] [place] [address] Ayden Orellana MD 505 [place] [address] 08/20/2025 10:00 AM EST Clinical Support [facility] MED & PEDS 505 [place] [address] Katherine Casper, MAKEDA 505 [place] [address] documented as of this encounter Visit Diagnoses Not on filedocumented in this encounter Care Teams Charge Lpn Relationship Specialty Start Date End Date Joyce Tapia MD 230 [place] [address] PCP - General Family Medicine 06/19/12 05/01/25 Jenny Schmidt MD 505 [place] [address] PCP - General Family Medicine 05/02/25 Cristal Muhammad, Deonte 230 [place] [address] Pharmacist Pharmacy 08/07/24 Alan Torres, MAKEDA 505 [place] [address] Registered Nurse Family Medicine 05/06/25 Kaylene Luo 05/06/25 documented as of this encounter
--- OUTSIDE RECORDS SUMMARY | 2025-06-26 08:59 | XMS_ITS | Encounter Summary ---
Author Organization [employer] Address 75 [facility] 7t [place] [address] Care Team Providers Care Qa Automation Architect Name Role Phone Joyce Tapia MD Primary Care Provider [phone] Cristal Muhammad PharmD Unavailable [phone] Jenny Schmidt MD Primary Care Provider [phone] Alan Torres RN Unavailable [phone] Kaylene Luo Unavailable Reason for Visit * Reason Onset Date Comments Med Refill 07/13/2024 Encounter Details Date Type Department Care Team (Late st Contact Info) Description 07/13/2024 Refill [facility] MED & PEDS 505 [place], [place] [phone] Joyce Tapia MD 505 [place], [place] [phone] Social History Tobacco Use Types Packs/Day Years [...] [facility] 505 [place] [address] Cristal Muhammad, PharmD 230 [place] [address] 08/05/2025 1:45 PM EST Office Visit [facility] MED & PEDS 505 [place] [address] Jenny Schmidt MD 505 [place] [address] 08/06/2025 10:45 AM EST Office Visit [facility] MED & PEDS 505 [place] [address] Ayden Orellana MD 505 [place] [address] 08/20/2025 10:00 AM EST Clinical Support [facility] MED & PEDS 505 [place] [address] Katherine Casper RN 505 [place] [address] documented as of this encounter Visit Diagnoses Not on filedocumented in this encounter Care Teams Qa Automation Architect Relationship Specialty Start Date End Date Joyce Tapia MD 230 [place] [address] PCP - General Family Medicine 06/19/12 05/01/25 Jenny Schmidt MD 505 [place] [address] PCP - General Family Medicine 05/02/25 Cristal Muhammad PharmD 230 [place] [address] Pharmacist Pharmacy 08/07/24 Alan Torres, MAKEDA 505 [place] [address] Registered Nurse Family Medicine 05/06/25 Kaylene Luo 05/06/25 documented as of this encounter
--- OUTSIDE RECORDS SUMMARY | 2025-06-26 08:59 | XMS_ITS | Encounter Summary ---
Author Organization [employer] Address 75 [facility] 7t [place] [address] Care Team Providers Care Key Worker Name Role Phone Joyce Tapia MD Primary Care Provider [phone] Cristal Muhammad PharmD Unavailable [phone] Jenny Schmidt MD Primary Care Provider [phone] Alan Torres RN Unavailable [phone] Kaylene Luo Unavailable Reason for Visit * Reason Onset Date Comments Med Refill 04/19/2023 Encounter Details Date Type Department Care Team ([facility] st Contact Info) Description 04/19/2023 Telephone [facility] MED & PEDS 505 [place], [place] [phone] Joyce Tapia MD 505 [place], [place] [phone] Med Refill Social History Tobacco Use Types [...] Description 07/29/2025 10:00 AM EST Medication Management [facility] MED & PEDS [address] [place] [address] Cristal Muhammad PharmD 230 [place] [address] 08/05/2025 1:45 PM EST Office Visit [facility] MED & PEDS [address] [place] [address] Jenny Schmidt MD 505 [place] [address] 08/06/2025 10:45 AM EST Office Visit [facility] MED & PEDS [address] [place] [address] Ayden Orellana MD 505 [place] [address] 08/20/2025 10:00 AM EST Clinical Support [facility] MED & PEDS [address] [place] [address] Katherine Casper, MAKEDA 505 [place] [address] documented as of this encounter Visit Diagnoses Not on filedocumented in this encounter Care Teams Key Worker Relationship Specialty Start Date End Date Joyce Tapia MD 230 [place] [address] PCP - General Family Medicine 06/19/12 05/01/25 Jenny Schmidt MD 505 [place] [address] PCP - General Family Medicine 05/02/25 Cristal Muhammad, PharmD 230 [place] [address] Pharmacist Pharmacy 08/07/24 Alan Torres, RN 505 [place] [address] Registered Nurse Family Medicine 05/06/25 Kaylene Luo 05/06/25 documented as of this encounter
--- OUTSIDE RECORDS SUMMARY | 2025-06-26 09:00 | XMS_ITS | Encounter Summary ---
Author Organization [employer] Address 75 [facility] 7t [place] [address] Care Team Providers Care Claims Adjuster Supervisor Name Role Phone Joyce Tapia MD Primary Care Provider [phone] Cristal Muhammad PharmD Unavailable [phone] Jenny Schmidt MD Primary Care Provider [phone] Alan Torres RN Unavailable [phone] Kaylene Luo Unavailable Reason for Visit * Reason Onset Date Comments Med Refill 05/21/2024 Encounter Details Date Type Department Care Team ([facility] st Contact Info) Description 05/21/2024 Refill [facility] MED & PEDS 505 [place], [place] [phone] Joyce Tapia MD 505 [place], [place] [phone] Social History Tobacco Use Types Packs/Day Years [...] [facility] MED & PEDS 505 [place] [address] Cristal Muhammad, PharmD 230 [place] [address] 08/05/2025 1:45 PM EST Office Visit [facility] MED & PEDS 505 [place] [address] Jenny Schmidt MD 505 [place] [address] 08/06/2025 10:45 AM EST Office Visit [facility] MED & PEDS 505 [place] [address] Ayden Orellana MD 505 [place] [address] 08/20/2025 10:00 AM EST Clinical Support [facility] MED & PEDS 505 [place] [address] Katherine Casper RN 505 [place] [address] documented as of this encounter Visit Diagnoses Not on filedocumented in this encounter Care Teams Claims Adjuster Supervisor Relationship Specialty Start Date End Date Joyce Tapia MD 230 [place] [address] PCP - General Family Medicine 06/19/12 05/01/25 Jenny Schmidt MD 505 [place] [address] PCP - General Family Medicine 05/02/25 Cristal Muhammad PharmD 230 [place] [address] Pharmacist Pharmacy 08/07/24 Alan Torres, MAKEDA 505 [place] [address] Registered Nurse Family Medicine 05/06/25 Kaylene Luo 05/06/25 documented as of this encounter
--- OUTSIDE RECORDS SUMMARY | 2025-06-26 09:00 | XMS_ITS | Encounter Summary ---
Author Organization [employer] Address 75 [facility] 7t [place] [address] Care Team Providers Care Packing Floor Worker Name Role Phone Joyce Tapia MD Primary Care Provider [phone] Cristal Muhammad PharmD Unavailable [phone] Jenny Schmidt MD Primary Care Provider [phone] Alan Torres RN Unavailable [phone] Kaylene Luo Unavailable Reason for Visit * Reason Onset Date Comments Med Refill 04/05/2024 Encounter Details Date Type Department Care Team (Late st Contact Info) Description 04/05/2024 Refill [facility] CH[facility] MED & PEDS 505 [place], [place] [phone] Joyce Tapia MD 505 [place], [place] [phone] Status post surgical removal of nail matrix [...] Description 07/29/2025 10:00 AM EST Medication Management [facility] MED & PEDS 505 [place] [address] Cristal Muhammad, PharmD 230 [place] [address] 08/05/2025 1:45 PM EST Office Visit [facility] MED & PEDS 505 [place] [address] Jenny Schmidt MD 505 [place] [address] 08/06/2025 10:45 AM EST Office Visit [facility] MED & PEDS 505 [place] [address] Ayden Orellana MD 505 [place] [address] 08/20/2025 10:00 AM EST Clinical Support [facility] MED & PEDS 505 [place] [address] Katherine Casper RN 505 [place] [address] documented as of this encounter Visit Diagnoses Diagnosis Status post surgical removal of nail matrix of toe of left foot documented in this encounter Care Teams Packing Floor Worker Relationship Specialty Start Date End Date Joyce Tapia MD 230 [place] [address] PCP - General Family Medicine 06/19/12 05/01/25 Jenny Schmidt MD 505 [place] [address] PCP - General Family Medicine 05/02/25 Cristal Muhammad PharmD 230 [place] [address] Pharmacist Pharmacy 08/07/24 Alan Torres RN 505 [place] [address] Registered Nurse Family Medicine 05/06/25 Kaylene Luo 05/06/25 documented as of this encounter
--- OUTSIDE RECORDS SUMMARY | 2025-06-26 09:00 | XMS_ITS | Encounter Summary ---
Author Organization [employer] Address 75 [facility] 7t [place] [address] Care Team Providers Care Underwriting Support Specialist Name Role Phone Joyce Tapia MD Primary Care Provider [phone] Cristal Muhammad PharmD Unavailable [phone] Jenny Schmidt MD Primary Care Provider [phone] Alan Torres RN Unavailable [phone] Kaylene Luo Unavailable Reason for Visit * Reason Onset Date Comments Med Refill 05/30/2023 Encounter Details Date Type Department Care Team (Late st Contact Info) Description 05/30/2023 Telephone [facility] MEDICINE 230 [place] [address] Joyce Tapia MD [address] [place], [place] [phone] Med Refill Social History Tobacco Use Types [...] oxyCODONE (Roxicodone) 5 MG immediate release tablet [facility] - [address] documented in this encounter Plan of Treatment Upcoming Encounters Date Type Department Care Team (Late st Contact Info) Description 07/29/2025 10:00 AM EST Medication Management [facility] MED & PEDS [address] [place] [address] Cristal Muhammad PharmD 230 [place] [address] 08/05/2025 1:45 PM EST Office Visit [facility] MED & PEDS [address] [place] [address] Jenny Schmidt MD [address] [place] [address] 08/06/2025 10:45 AM EST Office Visit [facility] MED & PEDS [address] [place] [address] Ayden Orellana MD [address] [place] [address] 08/20/2025 10:00 AM EST Clinical Support [facility] MED & PEDS [address] [place] [address] Katherine Casper, MAKEDA 505 [place] [address] documented as of this encounter Visit Diagnoses Not on filedocumented in this encounter Care Teams Underwriting Support Specialist Relationship Specialty Start Date End Date Joyce Tapia MD 230 [place] [address] PCP - General Family Medicine 06/19/12 05/01/25 Jenny Schmidt MD [address] [place] [address] PCP - General Family Medicine 05/02/25 Cristal Muhammad PharmD 230 [place] [address] Pharmacist Pharmacy 08/07/24 Alan Torres, MAKEDA 505 [place] [address] Registered Nurse Family Medicine 05/06/25 Kaylene Luo 05/06/25 documented as of this encounter
--- OUTSIDE RECORDS SUMMARY | 2025-06-26 09:00 | XMS_ITS | Encounter Summary ---
Author Organization [employer] Address 75 [facility] 7t [place] [address] Care Team Providers Care Strike Out Machine Operator Name Role Phone Joyce Tapia MD Primary Care Provider [phone] Cristal Muhammad PharmD Unavailable [phone] Jenny Schmidt MD Primary Care Provider [phone] Alan Torres RN Unavailable [phone] Kaylene Luo Unavailable Reason for Visit * Reason Onset Date Comments Med Refill 09/17/2024 Encounter Details Date Type Department Care Team (Late st Contact Info) Description 09/17/2024 Refill [facility] CHC MED & PEDS 505 [place], [place] [phone] Emerson Keith MD 505 [place], [place] [phone] Status post surgical removal of nail matrix [facility] Description 07/29/2025 10:00 AM EST Medication Management [facility] MED & PEDS 505 [place] [address] Cristal Muhammad, PharmD 230 [place] [address] 08/05/2025 1:45 PM EST Office Visit [facility] MED & PEDS 505 [place] [address] Jenny Schmidt MD 505 [place] [address] 08/06/2025 10:45 AM EST Office Visit [facility] MED & PEDS 505 [place] [address] Ayden Orellana MD 505 [place] [address] 08/20/2025 10:00 AM EST Clinical Support [facility] CHC MED & PEDS 505 [place] [address] Katherine Casper, MAKEDA 505 [place] [address] documented as of this encounter Visit Diagnoses Diagnosis Status post surgical removal of nail matrix of toe of left foot documented in this encounter Additional Health Concerns Assessment Noted Time PHQ-9 Depression Total Score: 7 09/15/19 9:02 AM EDT documented as of this encounter Care Teams Strike Out Machine Operator Relationship Specialty Start Date End Date Joyce Tapia MD 230 [place] [address] PCP - General Family Medicine 06/19/12 05/01/25 Jenny Schmidt MD 505 [place] [address] PCP - General Family Medicine 05/02/25 Cristal Muhammad PharmD 230 [place] [address] Pharmacist Pharmacy 08/07/24 Alan Torres, MAKEDA 505 [place] [address] Registered Nurse Family Medicine 05/06/25 Kaylene Luo 05/06/25 documented as of this encounter
--- OUTSIDE RECORDS SUMMARY | 2025-06-26 09:00 | XMS_ITS | Encounter Summary ---
Author Organization [employer] Address 75 [facility] 7t [place] [address] Care Team Providers Care Coil Winder Repair Name Role Phone Joyce Tapia MD Primary Care Provider [phone] Cristal Muhammad PharmD Unavailable [phone] Jenny Schmidt MD Primary Care Provider [phone] Alan Torres RN Unavailable [phone] Kaylene Luo Unavailable Encounter Details Date Type Department Care Team (Late Contact Info) Description 05/24/2023 Abstract [facility] MEDICINE 230 [place], [place] [phone] Zohra Benavidez Social History Tobacco Use Types [...] Department Care Team (Late Contact Info) Description 07/29/2025 10:00 AM EST Medication Management [facility] CHC MED & PEDS 505 [place] [address] Cristal Muhammad, PharmD 230 [place], [place] [phone] 08/05/2025 1:45 PM EST Office Visit [facility] MED & PEDS 505 [place] [address] Jenny Schmidt MD 505 [place] [address] 08/06/2025 10:45 AM EST Office Visit [facility] MED & PEDS 505 [place], [place] [phone] Ayden Orellana MD 505 [place] [address] 08/20/2025 10:00 AM EST Clinical Support [facility] MED & PEDS 505 [place] [address] Katherine Casper RN 505 [place], [place] [phone] documented as of this encounter Procedures Procedure Name Priority Date/Time Associated Diagnosis Comments COLONOSCOPY Routine 02/20/2015 documented in this encounter Results * Colonoscopy (02/20/2015) Colonoscopy Normal Normal Narrative Zohra Benavidez - 02/20/2015 Repeat in 10 year Historical Provider HEALTH MAINTENANCE Final Result documented in this encounter Visit Diagnoses Not on filedocumented in this encounter Care Teams Coil Winder Repair Relationship Specialty Start Date End Date Joyce Tapia MD [address] [place] [address] PCP - General Family Medicine 06/19/12 05/01/25 Jenny Schmidt MD [address] [place] [address] PCP - General Family Medicine 05/02/25 Cristal Muhammad PharmD [address] [place] [address] Pharmacist Pharmacy 08/07/24 Alan Torres, RN [address] [place] [address] [place] [address] Registered Nurse Family Medicine 05/06/25 Kaylene Luo 05/06/25 documented as of this encounter
--- OUTSIDE RECORDS SUMMARY | 2025-06-26 09:00 | XMS_ITS | Encounter Summary ---
Author Organization [email or web address] Address 75 [facility] 7t [place] [address] Care Team Providers Care Washing Machine Loader Name Role Phone Joyce Tapia MD Primary Care Provider [phone] Cristal Muhammad PharmD Unavailable [phone] Jenny Schmidt MD Primary Care Provider [phone] Alan Torres RN Unavailable [phone] Kaylene Luo Unavailable Encounter Details Date Type Department Care Team ([facility] st Contact Info) Description 10/26/2022 Orders Only [facility] CHC MED & PEDS 505 [place], [place] [phone] Emerson Keith MD 505 [place], [place] [phone] Social History Tobacco Use Types Packs/Day Years [...] [facility] MED & PEDS 505 [place] [address] Cristal Muhammad PharmD 230 [place] [address] 08/05/2025 1:45 PM EST Office Visit [facility] MED & PEDS [address] [place] [address] Jenny Schmidt MD 505 [place], [place] 08/06/2025 10:45 AM EST Office Visit [facility] MED & PEDS [address] [place] [address] Ayden Orellana MD [address] [place] [address] 08/20/2025 10:00 AM EST Clinical Support [facility] MED & PEDS [address] [place] [address] Katherine Casper, MAKEDA 505 [place] [address] documented as of this encounter Visit Diagnoses Not on filedocumented in this encounter Care Teams Washing Machine Loader Relationship Specialty Start Date End Date Joyce Tapia MD [address] [place] [address] PCP - General Family Medicine 06/19/12 05/01/25 Jenny Schmidt MD [address] [place] [address] PCP - General Family Medicine 05/02/25 Cristal Muhammad, BobD [address] [place] [address] Pharmacist Pharmacy 08/07/24 Alan Torres, RN [address] [place] [address] Registered Nurse Family Medicine 05/06/25 Kaylene Luo 05/06/25 documented as of this encounter
--- OUTSIDE RECORDS SUMMARY | 2025-06-26 09:00 | XMS_ITS | Encounter Summary ---
Author Organization [employer] Address 75 [facility] 7t [place] [address] Care Team Providers Care Block Saw Operator Name Role Phone Joyce Tapia MD Primary Care Provider Cristal Muhammad PharmD Unavailable [phone] Jenny Schmidt MD Primary Care Provider [phone] Alan Torres RN Unavailable [phone] Kaylene Luo Unavailable Encounter Details Date Type Department Care Team (Late Contact Info) Description 09/27/2022 Orders Only [facility] MEDICINE [address] [place], [place] [phone] Comfort Estrada LPN Social History Tobacco Use [...] [facility] [address] [place] [address] Cristal Muhammad PharmD 230 [place], [place] 08/05/2025 1:45 PM EST Office Visit [facility] [address] [place] [address] Jenny Schmidt MD 505 [place], [place] 08/06/2025 10:45 AM EST Office Visit [facility] [address] [place] [address] Ayden Orellana MD [address] [place] [address] 08/20/2025 10:00 AM EST Clinical Support [facility] [address] [place] [address] Katherine Casper RN [address] [place] [address] documented as of this encounter Visit Diagnoses Not on filedocumented in this encounter Care Teams Block Saw Operator Relationship Specialty Start Date End Date Joyce Tapia MD [address] [place] [address] PCP - General Family Medicine 06/19/12 05/01/25 Jenny Schmidt MD [address] [place] [address] PCP - General Family Medicine 05/02/25 Cristal Muhammad PharmD [address] [place] [address] Pharmacist Pharmacy 08/07/24 Alan Torres, RN [address] [place] [address] Registered Nurse Family Medicine 05/06/25 Kaylene Luo 05/06/25 documented as of this encounter
--- OUTSIDE RECORDS SUMMARY | 2025-06-26 09:00 | XMS_ITS | Encounter Summary ---
Author Organization [employer] Address 75 [facility] 7t [place] [address] Care Team Providers Care Electrical And Instrumentation Mechanic Name Role Phone Cristal Muhammad PharmD Unavailable [phone] Jenny Schmidt MD Primary Care Provider [phone] Alan Torres RN Unavailable [phone] Kaylene Luo Unavailable Reason for Visit * Reason Comments Med Refill Encounter Details Date Type Department Care Team (Late st Contact Info) Description 05/06/2025 Refill [facility]S 505 [place], [place] [phone] Joyce Tapia MD 505 [place], [place] [phone] Status post surgical removal of nail matrix [...] [facility] 505 [place] [address] Cristal Muhammad, PharmD 230 [place] [address] 08/05/2025 1:45 PM EST Office Visit [facility] MED [facility] PEDS 505 [place] [address] Jenny Schmidt MD 505 [place] [address] 08/06/2025 10:45 AM EST Office Visit [facility] PEDS [address] [place] [address] Ayden Orellana MD 505 [place] [address] 08/20/2025 10:00 AM EST Clinical Support [facility]S [address] [place] [address] Katherine Casper, MAKEDA 505 [place] [address] documented as of this encounter Visit Diagnoses Diagnosis Status post surgical removal of nail matrix of toe of left foot documented in this encounter Additional Health Concerns Assessment Noted Time PHQ-9 Depression Total Score: 7 09/15/19 9:02 AM EDT documented as of this encounter Care Teams Electrical And Instrumentation Mechanic Relationship Specialty Start Date End Date Jenny Schmidt MD 505 [place] [address] PCP - General Family Medicine 05/02/25 Cristal Muhammad PharmD 230 [place] [address] Pharmacist Pharmacy 08/07/24 Alan Torres, MAKEDA 505 [place] [address] Registered Nurse Family Medicine 05/06/25 Kaylene Luo 05/06/25 documented as of this encounter
--- OUTSIDE RECORDS SUMMARY | 2025-06-26 09:00 | XMS_ITS | Encounter Summary ---
Author Organization [employer] Address 75 [facility] 7t [place] [address] Care Team Providers Care Pharmacometrician Name Role Phone Joyce Tapia MD Primary Care Provider [phone] Cristal Muhammad PharmD Unavailable [phone] Jneny Schmidt MD Primary Care Provider [phone] Alan Torres RN Unavailable [phone] Kaylene Luo Unavailable Reason for Visit * Reason Comments Med Refill Encounter Details Date Type Department Care Team (Late st Contact Info) Description 10/03/2023 Refill [facility] MED & PEDS 505 [place], [place] [phone] Joyce Tapia MD 505 [place], [place] [phone] Arthropathy Social History Tobacco Use Types Packs/Day [...] [facility] [address] [place] [address] Cristal Muhammad, BobD 230 [place] [address] 08/05/2025 1:45 PM EST Office Visit [facility] MED [facility] PEDS [address] [place] [address] Jenny Schmidt MD 505 [place], [place] 08/06/2025 10:45 AM EST Office Visit [facility]ED[facility] [address] [place] [address] Ayden Orellana MD [address] [place] [address] 08/20/2025 10:00 AM EST Clinical Support [facility] PEDS [address] [place] [address] Katherine Casper RN [address] [place] [address] documented as of this encounter Visit Diagnoses Diagnosis Arthropathy Unspecified arthropathy, site unspecified documented in this encounter Care Teams Pharmacometrician Relationship Specialty Start Date End Date Joyce Tapia MD [address] [place] [address] PCP - General Family Medicine 06/19/12 05/01/25 Jenny Schmidt MD [address] [place] [address] PCP - General Family Medicine 05/02/25 Cristal Muhammad, PharmD [address] [place] [address] Pharmacist Pharmacy 08/07/24 Alan Torres, MAKEDA [address] [place] [address] Registered Nurse Family Medicine 05/06/25 Kaylene Luo 05/06/25 documented as of this encounter
--- OUTSIDE RECORDS SUMMARY | 2025-06-26 09:00 | XMS_ITS | Encounter Summary ---
Author Organization [employer] Address 75 [facility] 7t [place] [address] Care Team Providers Care Party Demonstrator Name Role Phone Joyce Tapia MD Primary Care Provider [phone] Cristal Muhammad PharmD Unavailable [phone] Jenny Schmidt MD Primary Care Provider [phone] Alan Torres RN Unavailable [phone] Kaylene Luo Unavailable Reason for Visit * Reason Comments Med Refill Encounter Details Date Type Department Care Team (Late st Contact Info) Description 06/07/2023 Refill [facility] MED & PEDS [address] [place], [place] [phone] Ev Lewis, ANP 230 [place] [address] Status post surgical removal of nail matrix [...] [facility] [address] [place] [address] Cristal Muhammad PharmD 230 [place] [address] 08/05/2025 1:45 PM EST Office Visit [facility] MED [facility] PEDS [address] [place] [address] Jenny Schmidt MD [address] [place] [address] 08/06/2025 10:45 AM EST Office Visit [facility] MED [facility] PEDS [address] [place] [address] Ayden Orellana MD [address] [place] [address] 08/20/2025 10:00 AM EST Clinical Support [facility] PEDS [address] [place] [address] Katherine Casper RN [address] [place] [address] documented as of this encounter Visit Diagnoses Diagnosis Status post surgical removal of nail matrix of toe of left foot documented in this encounter Care Teams Party Demonstrator Relationship Specialty Start Date End Date Joyce Tapia MD [address] [place] [address] PCP - General Family Medicine 06/19/12 05/01/25 Jenny Schmidt MD [address] [place] [address] PCP - General Family Medicine 05/02/25 Cristal Muhammad PharmD [address] [place] [address] Pharmacist Pharmacy 08/07/24 Alan Torres, RN [address] [place], [place] [address] [place] [address] Registered Nurse Family Medicine 05/06/25 Kaylene Luo 05/06/25 documented as of this encounter
--- OUTSIDE RECORDS SUMMARY | 2025-06-26 09:00 | XMS_ITS | Encounter Summary ---
Author Organization [employer] Address 75 [facility] 7t [place] [address] Care Team Providers Care Woodworker Helper Name Role Phone Joyce Tapia MD Primary Care Provider [phone] Cristal Muhammad PharmD Unavailable [phone] Jenny Schmidt MD Primary Care Provider [phone] Alan Torres RN Unavailable [phone] Kaylene Luo Unavailable Reason for Visit * Reason Onset Date Comments Med Refill 06/05/2024 Encounter Details Date Type Department Care Team (Late st Contact Info) Description 06/05/[address] [facility] MEDICINE 230 [place] [address] Joyce Tapia MD [address] [place], [place] [phone] Status post surgical removal of nail matrix [...] [facility] 505 [place] [address] Cristal Muhammad, PharmD 230 [place] [address] 08/05/2025 1:45 PM EST Office Visit [facility] MED & PEDS [address] [place] [address] Jenny Schmidt MD 505 [place] [address] 08/06/2025 10:45 AM EST Office Visit [facility] MED & PEDS [address] [place] [address] Ayden Orellana MD 505 [place] [address] 08/20/2025 10:00 AM EST Clinical Support [facility] MED & PEDS 505 [place] [address] Katherine Casper RN 505 [place] [address] documented as of this encounter Visit Diagnoses Diagnosis Status post surgical removal of nail matrix of toe of left foot documented in this encounter Care Teams Woodworker Helper Relationship Specialty Start Date End Date Joyce Tapia MD 230 [place] [address] PCP - General Family Medicine 06/19/12 05/01/25 Jenny Schmidt MD 505 [place] [address] PCP - General Family Medicine 05/02/25 Cristal Muhammad PharmD 230 [place] [address] Pharmacist Pharmacy 08/07/24 Alan Torres, MAKEDA 505 [place] [address] Registered Nurse Family Medicine 05/06/25 Kaylene Luo 05/06/25 documented as of this encounter
--- OUTSIDE RECORDS SUMMARY | 2025-06-26 09:00 | XMS_ITS | Encounter Summary ---
Author Organization [employer] Address 75 [facility] 7t [place] [address] Care Team Providers Care Sports Physiotherapist Name Role Phone Joyce Tapia MD Primary Care Provider [phone] Cristal Muhammad PharmD Unavailable [phone] Jenny Schmidt MD Primary Care Provider [phone] Alan Torres RN Unavailable [phone] Kaylene Luo Unavailable Reason for Visit * Reason Onset Date Comments Medication Question 12/11/2024 Encounter Details Date Type Department Care Team (Late st Contact Info) Description 12/11/2024 Telephone [facility] MEDICINE 230 [place] [address] Joyce Tapia MD [address] [place], [place] [phone] Medication Question Social History Tobacco Use Types [...] have dosage increased. Please contact pt at [phone]. documented in this encounter Plan of Treatment Upcoming Encounters Date Type Department Care Team ([facility] st Contact Info) Description 07/29/2025 10:00 AM EST Medication Management [facility] MED & PEDS 505 [place] [address] Cristal Muhammad, PharmD 230 [place] [address] 08/05/2025 1:45 PM EST Office Visit [facility] MED [facility] PEDS 505 [place] [address] Jenny Schmidt MD 505 [place] [address] 08/06/2025 10:45 AM EST Office Visit [facility] MED [facility] PEDS [address] [place] [address] Ayden Orellana MD 505 [place], [place] 08/20/2025 10:00 AM EST Clinical Support [facility] MED [facility] PEDS 505 [place] [address] Katherine Casper RN 505 [place] [address] documented as of this encounter Visit Diagnoses Not on filedocumented in this encounter Additional Health Concerns Assessment Noted Time PHQ-9 Depression Total Score: 7 09/15/19 9:02 AM EDT documented as of this encounter Care Teams Sports Physiotherapist Relationship Specialty Start Date End Date Joyce Tapia MD 230 [place] [address] PCP - General Family Medicine 06/19/12 05/01/25 Jenny Schmidt MD [address] [place] [address] PCP - General Family Medicine 05/02/25 Cristal Muhammad PharmD 230 [place] [address] Pharmacist Pharmacy 08/07/24 Alan Torres, MAKEDA [address] [place] [address] Registered Nurse Family Medicine 05/06/25 Kaylene Luo 05/06/25 documented as of this encounter
--- OUTSIDE RECORDS SUMMARY | 2025-06-26 09:00 | XMS_ITS | Encounter Summary ---
Author Organization [employer] Address 75 [facility] 7t [place] [address] Care Team Providers Care Conche Loader And Unloader Name Role Phone Joyce Tapia MD Primary Care Provider [phone] Cristal Muhammad PharmD Unavailable [phone] Jenny Schmidt MD Primary Care Provider [phone] Alan Torres RN Unavailable [phone] Kaylene Luo Unavailable Reason for Visit * Reason Onset Date Comments Med Refill 06/28/2023 Encounter Details Date Type Department Care Team (Late st Contact Info) Description 06/28/2023 Telephone [facility] MEDICINE 230 [place] [address] Joyce Tapia MD [address] [place], [place] [phone] Med Refill Social History Tobacco Use Types [...] immediate release tablet To be sent to: [facility] - [address] documented in this encounter Plan of Treatment Upcoming Encounters Date Type Department Care Team ([facility] st Contact Info) Description 07/29/2025 10:00 AM EST Medication Management [facility] MED & PEDS [address] [place] [address] Cristal Muhammad PharmD 230 [place] [address] 08/05/2025 1:45 PM EST Office Visit [facility] MED & PEDS [address] [place] [address] Jenny Schmidt MD [address] [place] [address] 08/06/2025 10:45 AM EST Office Visit [facility] MED & PEDS [address] [place] [address] Ayden Orellana MD 505 [place], [place] 08/20/2025 10:00 AM EST Clinical Support [facility] & PEDS [address] [place] [address] Katherine Casper, MAKEDA 505 [place] [address] documented as of this encounter Visit Diagnoses Not on filedocumented in this encounter Care Teams Conche Loader And Unloader Relationship Specialty Start Date End Date Joyce Tapia MD 230 [place] [address] PCP - General Family Medicine 06/19/12 05/01/25 Jenny Schmidt MD [address] [place] [address] PCP - General Family Medicine 05/02/25 Cristal Muhammad PharmD 230 [place] [address] Pharmacist Pharmacy 08/07/24 Alan Torres, MAKEDA 505 [place], [place] [phone] Registered Nurse Family Medicine 05/06/25 Kaylene Luo 05/06/25 documented as of this encounter
--- OUTSIDE RECORDS SUMMARY | 2025-06-26 09:00 | XMS_ITS | Encounter Summary ---
Author Organization [employer] Address 75 [facility] 7t [place] [address] Care Team Providers Care Unloading Checker Name Role Phone Joyce Tapia MD Primary Care Provider [phone] Cristal Muhammad PharmD Unavailable [phone] Jenny Schmidt MD Primary Care Provider [phone] Alan Torres RN Unavailable [phone] Kaylene Luo Unavailable Reason for Visit * Reason Comments Med Refill Encounter Details Date Type Department Care Team (Late st Contact Info) Description 12/17/2024 Refill [facility] 230 [place] [address] Kassi Johnston FNP [address] [place] [address] Social History Tobacco Use Types Packs/Day Years [...] the past 12 months, has t he [employer], gas, oil or water company threatened to [...] Description 07/29/2025 10:00 AM EST Medication Management [facility] MED & PEDS [address] [place] [address] Cristal Muhammad, PharmD 230 [place] [address] 08/05/2025 1:45 PM EST Office Visit [facility] MED & PEDS [address] [place] [address] Jenny Schmidt MD 505 [place] [address] 08/06/2025 10:45 AM EST Office Visit [facility] MED & PEDS [address] [place] [address] Ayden Orellana MD 505 [place] [address] 08/20/2025 10:00 AM EST Clinical Support [facility] MED [facility] PEDS [address] [place] [address] Katherine Casper, MAKEDA 505 [place] [address] documented as of this encounter Visit Diagnoses Not on filedocumented in this encounter Additional Health Concerns Assessment Noted Time PHQ-9 Depression Total Score: 7 09/15/19 9:02 AM EDT documented as of this encounter Care Teams Unloading Checker Relationship Specialty Start Date End Date Joyce Tapia MD 230 [place] [address] PCP - General Family Medicine 06/19/12 05/01/25 Jenny Schmidt MD 505 [place] [address] PCP - General Family Medicine 05/02/25 Cristal Muhammad PharmD 230 [place] [address] Pharmacist Pharmacy 08/07/24 Alan Torres, MAKEDA 505 [place] [address] Registered Nurse Family Medicine 05/06/25 Kaylene Luo 05/06/25 documented as of this encounter
--- OUTSIDE RECORDS SUMMARY | 2025-06-26 09:00 | XMS_ITS | Encounter Summary ---
Author Organization [employer] Address 75 [facility] 7t [place] [address] Care Team Providers Care Spooling Machine Operator Name Role Phone Joyce Tapia MD Primary Care Provider [phone] Cristal Muhammad PharmD Unavailable [phone] Jenny Schmidt MD Primary Care Provider [phone] Alan Torres RN Unavailable [phone] Kaylene Luo Unavailable Reason for Visit * Reason Comments Med Refill Encounter Details Date Type Department Care Team (Late st Contact Info) Description 07/29/2023 Refill [facility] MEDICINE 230 [place] [address] Joyce Tapia MD [address] [place] [address] Status post surgical removal of nail matrix [...] Medication Management [facility]S [address] [place] [address] Cristal Muhammad PharmD 230 [place] [address] 08/05/2025 1:45 PM EST Office Visit [facility] MED & PEDS [address] [place] [address] Jenny Schmidt MD [address] [place], [place] 08/06/2025 10:45 AM EST Office Visit [facility] MED & PEDS [address] [place] [address] Ayden Orellana MD [address] [place] [address] 08/20/2025 10:00 AM EST Clinical Support [facility] MED & PEDS [address] [place] [address] Katherine Casper RN [address] [place] [address] documented as of this encounter Visit Diagnoses Diagnosis Status post surgical removal of nail matrix of toe of left foot documented in this encounter Care Teams Spooling Machine Operator Relationship Specialty Start Date End Date Joyce Tapia MD [address] [place] [address] PCP - General Family Medicine 06/19/12 05/01/25 Jenny Schmidt MD [address] [place] [address] PCP - General Family Medicine 05/02/25 Cristal Muhammad PharmD [address] [place] [address] Pharmacist Pharmacy 08/07/24 Alan Torres, MAKEDA [address] [place] [address] [place] [address] Registered Nurse Family Medicine 05/06/25 Kaylene Luo 05/06/25 documented as of this encounter
--- OUTSIDE RECORDS SUMMARY | 2025-06-26 09:00 | XMS_ITS | Encounter Summary ---
Author Organization [employer] Address 75 [facility] 7t [place] [address] Care Team Providers Care Media Planner / Buyer Name Role Phone Jyoce Tapia MD Primary Care Provider [phone] Cristal Muhammad PharmD Unavailable [phone] Jenny Schmidt MD Primary Care Provider [phone] Alan Torres RN Unavailable [phone] Kaylene Luo Unavailable Reason for Visit * Reason Comments Med Refill Encounter Details Date Type Department Care Team ([facility] st Contact Info) Description 03/27/2025 Refill [facility] 505 [place], [place] [phone] Joyce Tapia MD 505 [place], [place] [phone] Pain Social History Tobacco Use Types Packs/Day [...] the past 12 months, has t he [employer], gas, oil or water company threatened to [...] [facility] 505 [place] [address] Cristal Muhammad, PharmD 230 [place] [address] 08/05/2025 1:45 PM EST Office Visit [facility] MED [facility] PEDS 505 [place] [address] Jenny Schmidt MD 505 [place] [address] 08/06/2025 10:45 AM EST Office Visit [facility] MED [facility] PEDS 505 [place] [address] Ayden Orellana MD 505 [place] [address] 08/20/2025 10:00 AM EST Clinical Support [facility] MED & PEDS 505 [place] [address] Katherine Casper, MAKEDA 505 [place] [address] documented as of this encounter Visit Diagnoses Diagnosis Pain Generalized pain documented in this encounter Additional Health Concerns Assessment Noted Time PHQ-9 Depression Total Score: 7 09/15/19 9:02 AM EDT documented as of this encounter Care Teams Media Planner / Buyer Relationship Specialty Start Date End Date Joyce Tapia MD 230 [place] [address] PCP - General Family Medicine 06/19/12 05/01/25 Jenny Schmidt MD 505 [place] [address] PCP - General Family Medicine 05/02/25 Cristal Muhammad PharmD 230 [place] [address] Pharmacist Pharmacy 08/07/24 Alan Torres, MAKEDA 505 [place] [address] Registered Nurse Family Medicine 05/06/25 Kaylene Luo 05/06/25 documented as of this encounter
--- OUTSIDE RECORDS SUMMARY | 2025-06-26 09:00 | XMS_ITS | Encounter Summary ---
Author Organization [employer] Address 75 [facility] 7t [place] [address] Care Team Providers Care Advisor To Command In Combat Name Role Phone Joyce Tapia MD Primary Care Provider [phone] Cristal Muhammad PharmD Unavailable [phone] Jenny Schmidt MD Primary Care Provider [phone] Alan Torres RN Unavailable [phone] Kaylene Luo Unavailable Reason for Visit * Reason Onset Date Comments Med Refill 10/24/2024 Encounter Details Date Type Department Care Team (Late st Contact Info) Description 10/24/2024 Refill [facility] MEDICINE 230 [place] [address] Ayden Orellana MD 505 [place], [place] [phone] Status post surgical removal of nail matrix [...] [facility] 505 [place] [address] Cristal Muhammad, PharmD 230 [place] [address] 08/05/2025 1:45 PM EST Office Visit [facility] 505 [place] [address] Jenny Schmidt MD 505 [place] [address] 08/06/2025 10:45 AM EST Office Visit [facility] 505 [place] [address] Ayden Orellana MD 505 [place] [address] 08/20/2025 10:00 AM EST Clinical Support [facility] MED [facility] PEDS 505 [place] [address] Katherine Casper, MAKEDA 505 [place] [address] documented as of this encounter Visit Diagnoses Diagnosis Status post surgical removal of nail matrix of toe of left foot documented in this encounter Additional Health Concerns Assessment Noted Time PHQ-9 Depression Total Score: 7 09/15/19 9:02 AM EDT documented as of this encounter Care Teams Advisor To Command In Combat Relationship Specialty Start Date End Date Joyce Tapia MD 230 [place] [address] PCP - General Family Medicine 06/19/12 05/01/25 Jenny Schmidt MD 505 [place] [address] PCP - General Family Medicine 05/02/25 Cristal Muhammad PharmD 230 [place] [address] Pharmacist Pharmacy 08/07/24 Alan Torres, MAKEDA 505 [place] [address] Registered Nurse Family Medicine 05/06/25 Kaylene Luo 05/06/25 documented as of this encounter
--- OUTSIDE RECORDS SUMMARY | 2025-06-26 09:00 | XMS_ITS | Encounter Summary ---
Author Organization [employer] Address [address] [facility] 7t [place] [address] Care Team Providers Care Hospice Music Therapist Name Role Phone Joyce Tapia MD Primary Care Provider [phone] Cristal Muhammad PharmD Unavailable [phone] Jenny Schmidt MD Primary Care Provider [phone] Alan Torres RN Unavailable [phone] Kaylene Luo Unavailable Reason for Visit * Reason Comments Med Refill Encounter Details Date Type Department Care Team (Late Contact Info) Description 06/12/2023 Refill [facility] MED & PEDS 505 [place], [place] [phone] Christy Ray MD 505 [place], [place] [phone] Muscle spasm Social History Tobacco Use Types [...] Description 07/29/2025 10:00 AM EST Medication Management [facility] [address] [place] [address] Cristal Muhammad, Deonte 230 [place], [place] 08/05/2025 1:45 PM EST Office Visit [facility] [address] [place] [address] Jenny Schmidt MD 505 [place], [place] 08/06/2025 10:45 AM EST Office Visit [facility] [address] [place] [address] Ayden Orellana MD [address] [place] [address] 08/20/2025 10:00 AM EST Clinical Support [facility] [address] [place] [address] Katherine Casper, MAKEDA [address] [place] [address] documented as of this encounter Visit Diagnoses Diagnosis Muscle spasm Spasm of muscle documented in this encounter Care Teams Hospice Music Therapist Relationship Specialty Start Date End Date Joyce Tapia MD [address] [place] [address] PCP - General Family Medicine 06/19/12 05/01/25 Jenny Schmidt MD [address] [place] [address] PCP - General Family Medicine 05/02/25 Cristal Muhammad, PharmD [address] [place] [address] Pharmacist Pharmacy 08/07/24 Alan Torres, MAKEDA [address] [place] [address] Registered Nurse Family Medicine 05/06/25 Kaylene Luo 05/06/25 documented as of this encounter
--- OUTSIDE RECORDS SUMMARY | 2025-06-26 09:00 | XMS_ITS | Encounter Summary ---
Author Organization [employer] Address 75 [facility] 7t [place] [address] Care Team Providers Care Automatic Wheel Line Operator Name Role Phone Joyce Tapia MD Primary Care Provider Cristal Muhammad PharmD Unavailable [phone] Jenny Schmidt MD Primary Care Provider [phone] Alan Torres RN Unavailable [phone] Kaylene Luo Unavailable Reason for Visit * Reason Onset Date Comments Med Refill 03/24/2025 Encounter Details Date Type Department Care Team ([facility] st Contact Info) Description 03/24/[address] [facility] MED & PEDS 505 [place], [place] [phone] Ayden Orellana MD 505 [place], [place] [phone] Wheezing Social History Tobacco Use Types Packs/Day [...] [facility] MED & PEDS 505 [place] [address] Cristal Muhammad, PharmD 230 [place] [address] 08/05/2025 1:45 PM EST Office Visit [facility] MED [facility] 505 [place] [address] Jenny Schmidt MD 505 [place] [address] 08/06/2025 10:45 AM EST Office Visit [facility] MED [facility] [address] [place] [address] Ayden Orellana MD 505 [place] [address] 08/20/2025 10:00 AM EST Clinical Support [facility] MED & PEDS 505 [place] [address] Katherine Casper, MAKEDA 505 [place] [address] documented as of this encounter Visit Diagnoses Diagnosis Wheezing documented in this encounter Additional Health Concerns Assessment Noted Time PHQ-9 Depression Total Score: 7 09/15/19 9:02 AM EDT documented as of this encounter Care Teams Automatic Wheel Line Operator Relationship Specialty Start Date End Date Joyce Tapia MD 230 [place] [address] PCP - General Family Medicine 06/19/12 05/01/25 Jenny Schmidt MD 505 [place] [address] PCP - General Family Medicine 05/02/25 Cristal Muhammad PharmD 230 [place] [address] Pharmacist Pharmacy 08/07/24 Alan Torres, MAKEDA 505 [place] [address] Registered Nurse Family Medicine 05/06/25 Kaylene Luo 05/06/25 documented as of this encounter
--- OUTSIDE RECORDS SUMMARY | 2025-06-26 09:00 | XMS_ITS | Encounter Summary ---
Author Organization [employer] Address [address] [facility] 7t [place] [address] Care Team Providers Care Panel Wirer Name Role Phone Cristal Muhammad PharmD Unavailable [phone] Jenny Schmidt MD Primary Care Provider [phone] Alan Torres RN Unavailable [phone] Kaylene Luo Unavailable Reason for Visit * Reason Onset Date Comments Med Refill 05/15/2025 Encounter Details Date Type Department Care Team (Late st Contact Info) Description 05/15/2025 Refill [facility] MED & PEDS [address] [place], [place] [phone] Cristal Muhammad, PharmD 230 [place] [address] Social History Tobacco Use Types Packs/Day Years [...] [facility] MED [facility]ED[facility] 505 [place] [address] Cristal Muhammad, PharmD 230 [place] [address] 08/05/2025 1:45 PM EST Office Visit [facility] MED & PEDS 505 [place] [address] Jenny Schmidt MD 505 [place] [address] 08/06/2025 10:45 AM EST Office Visit [facility] MED & PEDS [address] [place] [address] Ayden Orellana MD 505 [place] [address] 08/20/2025 10:00 AM EST Clinical Support [facility] MED & PEDS [address] [place] [address] Katherine Casper, MAKEDA 505 [place], [place] documented as of this encounter Visit Diagnoses Not on filedocumented in this encounter Additional Health Concerns Assessment Noted Time PHQ-9 Depression Total Score: 7 09/15/19 9:02 AM EDT documented as of this encounter Care Teams Panel Wirer Relationship Specialty Start Date End Date Jenny Schmidt MD 505 [place] [address] PCP - General Family Medicine 05/02/25 Cristal Muhammad PharmD 230 [place] [address] Pharmacist Pharmacy 08/07/24 Alan Torres, MAKEDA 505 [place] [address] Registered Nurse Family Medicine 05/06/25 Kaylene Luo 05/06/25 documented as of this encounter
--- OUTSIDE RECORDS SUMMARY | 2025-06-26 09:00 | XMS_ITS | Encounter Summary ---
Author Organization [employer] Address 75 [facility] 7t [place] [address] Care Team Providers Care Automotive Wholesale Parts Advisor Name Role Phone Joyce Tapia MD Primary Care Provider [phone] Cristal Muhammad PharmD Unavailable [phone] Jenny Schmidt MD Primary Care Provider [phone] Alan Torres RN Unavailable [phone] Kaylene Luo Unavailable Reason for Visit * Reason Onset Date Comments Med Refill 10/25/2024 Encounter Details Date Type Department Care Team (Late st Contact Info) Description 10/25/2024 Refill [facility] MED & PEDS 505 [place], [place] [phone] Joyce Tapia MD 505 [place], [place] [phone] Social History Tobacco Use Types Packs/Day Years [...] the past 12 months, has t he [employer], gas, oil or water company threatened to [...] [facility] [address] [place] [address] Cristal Muhammad, PharmD 230 [place] [address] 08/05/2025 1:45 PM EST Office Visit [facility] MED & PEDS 505 [place] [address] Jenny Schmidt MD 505 [place] [address] 08/06/2025 10:45 AM EST Office Visit [facility] MED & PEDS 505 [place] [address] Ayden Orellana MD 505 [place] [address] 08/20/2025 10:00 AM EST Clinical Support [facility] MED & PEDS 505 [place] [address] Katherine Casper, MAKEDA 505 [place] [address] documented as of this encounter Visit Diagnoses Not on filedocumented in this encounter Additional Health Concerns Assessment Noted Time PHQ-9 Depression Total Score: 7 09/15/19 9:02 AM EDT documented as of this encounter Care Teams Automotive Wholesale Parts Advisor Relationship Specialty Start Date End Date Joyce Tapia MD 230 [place] [address] PCP - General Family Medicine 06/19/12 05/01/25 Jenny Schmidt MD 505 [place] [address] PCP - General Family Medicine 05/02/25 Cristal Muhammad PharmD 230 [place] [address] Pharmacist Pharmacy 08/07/24 Alan Torres RN 505 [place] [address] Registered Nurse Family Medicine 05/06/25 Kaylene Luo 05/06/25 documented as of this encounter
--- OUTSIDE RECORDS SUMMARY | 2025-06-26 09:00 | XMS_ITS | Encounter Summary ---
Author Organization [employer] Address 75 [facility] 7t [place] [address] Care Team Providers Care Training Systems Officer Name Role Phone Joyce Tapia MD Primary Care Provider [phone] Cristal Muhammad PharmD Unavailable [phone] Jenny Schmidt MD Primary Care Provider [phone] Alan Torres RN Unavailable [phone] Kaylene Luo Unavailable Reason for Visit * Reason Onset Date Comments Med Refill 12/03/2024 Encounter Details Date Type Department Care Team (Late st Contact Info) Description 12/03/2024 Telephone [facility] MEDICINE 230 [place] [address] Joyce Tapia MD [address] [place], [place] [phone] Med Refill Social History Tobacco Use Types [...] [facility] [address] [place] [address] Cristal Muhammad PharmD 230 [place] [address] 08/05/2025 1:45 PM EST Office Visit [facility] [address] [place], [place] [phone] Jenny Schmidt MD 505 [place] [address] 08/06/2025 10:45 AM EST Office Visit [facility] [address] [place] [address] Ayden Orellana MD 505 [place] [address] 08/20/2025 10:00 AM EST Clinical Support [facility] [address] [place] [address] Katherine Casper, MAKEDA 505 [place] [address] documented as of this encounter Visit Diagnoses Not on filedocumented in this encounter Additional Health Concerns Assessment Noted Time PHQ-9 Depression Total Score: 7 09/15/19 9:02 AM EDT documented as of this encounter Care Teams Training Systems Officer Relationship Specialty Start Date End Date Joyce Tapia MD [address] [place] [address] PCP - General Family Medicine 06/19/12 05/01/25 Jenny Schmidt MD [address] [place] [address] PCP - General Family Medicine 05/02/25 Cristal Muhammad PharmD [address] [place] [address] Pharmacist Pharmacy 08/07/24 Alan Torres, MAKEDA [address] [place] [address] Registered Nurse Family Medicine 05/06/25 Kaylene Luo 05/06/25 documented as of this encounter
--- OUTSIDE RECORDS SUMMARY | 2025-06-26 09:00 | XMS_ITS | Encounter Summary ---
Author Organization [employer] Address [address] [facility] 7t [place] [address] Care Team Providers Care Mortgage Loan Officer Originator Name Role Phone Joyce Tapia MD Primary Care Provider [phone] Cristal Muhammad PharmD Unavailable [phone] Jenny Schmidt MD Primary Care Provider [phone] Alan Torres RN Unavailable [phone] Kaylene Luo Unavailable Reason for Visit * Reason Comments Med Refill Encounter Details Date Type Department Care Team ([facility] st Contact Info) Description 10/25/2022 Refill [facility] MED & PEDS 505 [place], [place] [phone] Jenny Schmidt MD 505 [place], [place] [phone] Status post surgical removal of nail matrix [...] Description 07/29/2025 10:00 AM EST Medication Management [facility] MED & PEDS 505 [place] [address] Cristal Muhammad PharmD 230 [place] [address] 08/05/2025 1:45 PM EST Office Visit [facility] MED & PEDS [address] [place] [address] Jenny Schmidt MD 505 [place] [address] 08/06/2025 10:45 AM EST Office Visit [facility] MED & PEDS [address] [place] [address] Ayden Orellana MD 505 [place] [address] 08/20/2025 10:00 AM EST Clinical Support [facility] MED & PEDS [address] [place] [address] Katherine Casper, MAKEDA 505 [place] [address] documented as of this encounter Visit Diagnoses Diagnosis Status post surgical removal of nail matrix of toe of left foot documented in this encounter Care Teams Mortgage Loan Officer Originator Relationship Specialty Start Date End Date Joyce Tapia MD [address] [place] [address] PCP - General Family Medicine 06/19/12 05/01/25 Jenny Schmidt MD [address] [place] [address] PCP - General Family Medicine 05/02/25 Cristal Muhammad, BobD 230 [place] [address] Pharmacist Pharmacy 08/07/24 Alan Torres, MAKEDA 505 [place] [address] Registered Nurse Family Medicine 05/06/25 Kaylene Luo 05/06/25 documented as of this encounter
--- OUTSIDE RECORDS SUMMARY | 2025-06-26 09:00 | XMS_ITS | Encounter Summary ---
Author Organization [employer] Address 75 [facility] 7t [place] [address] Care Team Providers Care Health Coordinator Name Role Phone Cristal Muhammad PharmD Unavailable [phone] Jenny Schmidt MD Primary Care Provider [phone] Alan Torres RN Unavailable [phone] Kaylene Luo Unavailable Reason for Visit * Reason Onset Date Comments Med Refill 05/15/2025 Encounter Details Date Type Department Care Team ([facility] Contact Info) Description 05/15/2025 Refill [facility] MED & PEDS 505 [place], [place] [phone] Joyce Tapia MD 505 [place], [place] [phone] Pain Social History Tobacco Use Types Packs/Day [...] [facility] MED & PEDS 505 [place] [address] Cristal Muhammad, PharmD 230 [place] [address] 08/05/2025 1:45 PM EST Office Visit [facility] MED & PEDS 505 [place] [address] Jenny Schmidt MD 505 [place] [address] 08/06/2025 10:45 AM EST Office Visit [facility] MED & PEDS 505 [place] [address] Ayden Orellana MD 505 [place] [address] 08/20/2025 10:00 AM EST Clinical Support [facility] MED & PEDS 505 [place] [address] Katherine Casper, MAKEDA 505 [place] [address] documented as of this encounter Visit Diagnoses Diagnosis Pain Generalized pain documented in this encounter Additional Health Concerns Assessment Noted Time PHQ-9 Depression Total Score: 7 09/15/19 9:02 AM EDT documented as of this encounter Care Teams Health Coordinator Relationship Specialty Start Date End Date Jenny Schmidt MD 505 [place] [address] PCP - General Family Medicine 05/02/25 Cristal Muhammad PharmD 230 [place] [address] Pharmacist Pharmacy 08/07/24 Alan Torres, MAKEDA 505 [place] [address] Registered Nurse Family Medicine 05/06/25 Kaylene Luo 05/06/25 documented as of this encounter
--- OUTSIDE RECORDS SUMMARY | 2025-06-26 09:00 | XMS_ITS | Encounter Summary ---
Author Organization [employer] Address 75 [facility] 7t [place] [address] Care Team Providers Care Dog Handler Or Trainer Name Role Phone Joyce Tapia MD Primary Care Provider [phone] Cristal Muhammad PharmD Unavailable [phone] Jenny Schmidt MD Primary Care Provider [phone] Alan Torres RN Unavailable [phone] Kaylene Luo Unavailable Reason for Visit * Reason Onset Date Comments Med Refill 08/01/2024 Encounter Details Date Type Department Care Team (Late st Contact Info) Description 08/01/2024 Refill [facility] MEDICINE 230 [place] [address] Emerson Keith MD 505 [place], [place] [phone] Status post surgical removal of nail matrix [...] Description 07/29/2025 10:00 AM EST Medication Management [facility] MED & PEDS 505 [place] [address] Cristal Muhammad, PharmD 230 [place] [address] 08/05/2025 1:45 PM EST Office Visit [facility] MED & PEDS 505 [place] [address] Jenny Schmidt MD 505 [place] [address] 08/06/2025 10:45 AM EST Office Visit [facility] MED & PEDS 505 [place] [address] Ayden Orellana MD 505 [place] [address] 08/20/2025 10:00 AM EST Clinical Support [facility] MED & PEDS 505 [place] [address] Katherine Casper RN 505 [place] [address] documented as of this encounter Visit Diagnoses Diagnosis Status post surgical removal of nail matrix of toe of left foot documented in this encounter Care Teams Dog Handler Or Trainer Relationship Specialty Start Date End Date Joyce Tapia MD 230 [place] [address] PCP - General Family Medicine 06/19/12 05/01/25 Jenny Schmidt MD 505 [place] [address] PCP - General Family Medicine 05/02/25 Cristal Muhammad PharmD 230 [place] [address] Pharmacist Pharmacy 08/07/24 Alan Torres RN 505 [place] [address] Registered Nurse Family Medicine 05/06/25 Kaylene Luo 05/06/25 documented as of this encounter
--- OUTSIDE RECORDS SUMMARY | 2025-06-26 09:00 | XMS_ITS | Encounter Summary ---
Author Organization [employer] Address 75 [facility] 7t [place] [address] Care Team Providers Care Roof Truss Machine Tender Name Role Phone Joyce Tapia MD Primary Care Provider [phone] Cristal Muhammad PharmD Unavailable [phone] Jenny Schmidt MD Primary Care Provider [phone] Alan Torres RN Unavailable [phone] Kaylene Luo Unavailable Reason for Visit * Reason Onset Date Comments Med Refill 05/28/2024 Encounter Details Date Type Department Care Team (Late st Contact Info) Description 05/28/2024 Refill [facility] CH[facility] MED & PEDS 505 [place], [place] [phone] Joyce Tapia MD 505 [place], [place] [phone] Status post surgical removal of nail matrix [...] [facility] MED & PEDS 505 [place] [address] Cristal Muhammad, PharmD 230 [place] [address] 08/05/2025 1:45 PM EST Office Visit [facility] 505 [place] [address] Jenny Schmidt MD 505 [place] [address] 08/06/2025 10:45 AM EST Office Visit [facility] MED [facility] P[facility] 505 [place] [address] Ayden Orellana MD 505 [place] [address] 08/20/2025 10:00 AM EST Clinical Support [facility] MED & PEDS 505 [place] [address] Katherine Casper RN 505 [place] [address] documented as of this encounter Visit Diagnoses Diagnosis Status post surgical removal of nail matrix of toe of left foot documented in this encounter Care Teams Roof Truss Machine Tender Relationship Specialty Start Date End Date Joyce Tapia MD 230 [place] [address] PCP - General Family Medicine 06/19/12 05/01/25 Jenny Schmidt MD 505 [place] [address] PCP - General Family Medicine 05/02/25 Cristal Muhammad PharmD 230 [place] [address] Pharmacist Pharmacy 08/07/24 Alan Torres RN 505 [place] [address] Registered Nurse Family Medicine 05/06/25 Kaylene Luo 05/06/25 documented as of this encounter
--- OUTSIDE RECORDS SUMMARY | 2025-06-26 09:00 | XMS_ITS | Encounter Summary ---
Author Organization [employer] Address 75 [facility] 7t [place] [address] Care Team Providers Care Barrel Rifler Operator Name Role Phone Joyce Tapia MD Primary Care Provider [phone] Cristal Muhammad PharmD Unavailable [phone] Jenny Schmidt MD Primary Care Provider [phone] Alan Torres RN Unavailable [phone] Kaylene Luo Unavailable Reason for Visit * Reason Onset Date Comments Med Refill 12/02/2024 Encounter Details Date Type Department Care Team (Late st Contact Info) Description 12/02/2024 Refill [facility] MEDICINE 230 [place] [address] Joyce Tapia MD [address] [place], [place] [phone] Status post surgical removal of nail matrix [...] [facility] MED & PEDS 505 [place] [address] Cristal Muhammad, PharmD 230 [place] [address] 08/05/2025 1:45 PM EST Office Visit [facility] MED & PEDS 505 [place] [address] Jenny Schmidt MD 505 [place] [address] 08/06/2025 10:45 AM EST Office Visit [facility] MED & PEDS [address] [place] [address] Ayden Orellana MD 505 [place] [address] 08/20/2025 10:00 AM EST Clinical Support [facility] MED & PEDS 505 [place] [address] Katherine Casper, MAKEDA 505 [place] [address] documented as of this encounter Visit Diagnoses Diagnosis Status post surgical removal of nail matrix of toe of left foot documented in this encounter Additional Health Concerns Assessment Noted Time PHQ-9 Depression Total Score: 7 09/15/19 9:02 AM EDT documented as of this encounter Care Teams Barrel Rifler Operator Relationship Specialty Start Date End Date Joyce Tapia MD 230 [place] [address] PCP - General Family Medicine 06/19/12 05/01/25 Jenny Schmidt MD 505 [place] [address] PCP - General Family Medicine 05/02/25 Cristal Muhammad PharmD 230 [place] [address] Pharmacist Pharmacy 08/07/24 Alan Torres, MAKEDA 505 [place] [address] Registered Nurse Family Medicine 05/06/25 Kaylene Luo 05/06/25 documented as of this encounter
--- OUTSIDE RECORDS SUMMARY | 2025-06-26 09:00 | XMS_ITS | Encounter Summary ---
Author Organization [employer] Address 75 [facility] 7t [place] [address] Care Team Providers Care Rim Fire Charger Operator Name Role Phone Joyce Tapia MD Primary Care Provider [phone] Cristal Muhammad PharmD Unavailable [phone] Jenny Schmidt MD Primary Care Provider [phone] Alan Torres RN Unavailable [phone] Kaylene Luo Unavailable Reason for Visit * Reason Comments Med Refill Encounter Details Date Type Department Care Team (Late st Contact Info) Description 06/06/2023 Refill [facility] MED & PEDS [address] [place], [place] [phone] Ev Lewis, ANP 230 [place] [address] Status post surgical removal of nail matrix [...] [facility] [address] [place] [address] Cristal Muhammad PharmD 230 [place] [address] 08/05/2025 1:45 PM EST Office Visit [facility] MED & PEDS [address] [place] [address] Jenny Schmidt MD [address] [place] [address] 08/06/2025 10:45 AM EST Office Visit [facility] MED & PEDS [address] [place] [address] Ayden Orellana MD [address] [place] [address] 08/20/2025 10:00 AM EST Clinical Support [facility] MED & PEDS [address] [place] [address] Katherine Casper RN [address] [place] [address] documented as of this encounter Visit Diagnoses Diagnosis Status post surgical removal of nail matrix of toe of left foot documented in this encounter Care Teams Rim Fire Charger Operator Relationship Specialty Start Date End Date Joyce Tapia MD [address] [place] [address] PCP - General Family Medicine 06/19/12 05/01/25 Jenny Schmidt MD [address] [place] [address] PCP - General Family Medicine 05/02/25 Cristal Muhammad PharmD [address] [place] [address] Pharmacist Pharmacy 08/07/24 Alan Torres, RN [address] [place], [place] [address] [place] [address] Registered Nurse Family Medicine 05/06/25 Kaylene Luo 05/06/25 documented as of this encounter
--- OUTSIDE RECORDS SUMMARY | 2025-06-26 09:00 | XMS_ITS | Encounter Summary ---
Author Organization [employer] Address 75 [facility] 7t [place] [address] Care Team Providers Care Loss Prevention Coordinator Name Role Phone Joyce Tapia MD Primary Care Provider [phone] Cristal Muhammad PharmD Unavailable [phone] Jenny Schmidt MD Primary Care Provider [phone] Alan Torres RN Unavailable [phone] Kaylene Luo Unavailable Reason for Visit * Reason Onset Date Comments Med Refill 02/25/2025 Encounter Details Date Type Department Care Team (Late st Contact Info) Description 02/25/[address] [facility] MED & PEDS [address] [place], [place] [phone] Ayden Orellana MD 505 [place], [place] [phone] Status post surgical removal of nail matrix [...] [facility] Contact Info) Description 07/29/2025 10:00 AM EST Medication Management [facility] MED & PEDS 505 [place] [address] Cristal Muhammad, PharmD [address] [place] [address] 08/05/2025 1:45 PM EST Office Visit [facility] MED & PEDS 505 [place] [address] Jenny Schmidt MD 505 [place] [address] 08/06/2025 10:45 AM EST Office Visit [facility] MED & PEDS 505 [place] [address] Ayden Orellana MD 505 [place] [address] 08/20/2025 10:00 AM EST Clinical Support [facility] CHC MED & PEDS 505 [place] [address] Katherine Casper, MAKEDA 505 [place] [address] documented as of this encounter Visit Diagnoses Diagnosis Status post surgical removal of nail matrix of toe of left foot documented in this encounter Additional Health Concerns Assessment Noted Time PHQ-9 Depression Total Score: 7 09/15/19 9:02 AM EDT documented as of this encounter Care Teams Loss Prevention Coordinator Relationship Specialty Start Date End Date Joyce Tapia MD [address] [place] [address] PCP - General Family Medicine 06/19/12 05/01/25 Jenny Schmidt MD 505 [place] [address] PCP - General Family Medicine 05/02/25 Cristal Muhammad PharmD [address] [place] [address] Pharmacist Pharmacy 08/07/24 Alan Torres, MAKEDA 505 [place] [address] Registered Nurse Family Medicine 05/06/25 Kaylene Luo 05/06/25 documented as of this encounter
--- OUTSIDE RECORDS SUMMARY | 2025-06-26 09:00 | XMS_ITS | Encounter Summary ---
Author Organization [employer] Address 75 [facility] 7t [place] [address] Care Team Providers Care Supervisor Filtration Name Role Phone Joyce Tapia MD Primary Care Provider [phone] Cristal Muhammad PharmD Unavailable [phone] Jenny Schmidt MD Primary Care Provider [phone] Alan Torres RN Unavailable [phone] Kaylene Luo Unavailable Reason for Visit * Reason Onset Date Comments Med Refill 02/28/2024 Encounter Details Date Type Department Care Team (Late st Contact Info) Description 02/28/2024 Telephone [facility] MEDICINE 230 [place] [address] Joyec Tapia MD [address] [place], [place] [phone] Med Refill Social History Tobacco Use Types [...] to: [facility] - [address] documented in this encounter Plan of Treatment Upcoming Encounters Date Type Department Care Team ([facility] st Contact Info) Description 07/29/2025 10:00 AM EST Medication Management [facility] MED & PEDS 505 [place] [address] Cristal Muhammad, PharmD 230 [place] [address] 08/05/2025 1:45 PM EST Office Visit [facility] MED & PEDS 505 [place] [address] Jenny Schmidt MD 505 [place] [address] 08/06/2025 10:45 AM EST Office Visit [facility] MED & PEDS [address] [place] [address] Ayden Orellana MD 505 [place] [address] 08/20/2025 10:00 AM EST Clinical Support [facility] CH[facility] MED & PEDS [address] [place] [address] Katherine Casper, MAKEDA 505 [place] [address] documented as of this encounter Visit Diagnoses Not on filedocumented in this encounter Care Teams Supervisor Filtration Relationship Specialty Start Date End Date Joyce Tapia MD [address] [place] [address] PCP - General Family Medicine 06/19/12 05/01/25 Jenny Schmidt MD [address] [place] [address] PCP - General Family Medicine 05/02/25 Cristal Muhammad PharmD [address] [place] [address] Pharmacist Pharmacy 08/07/24 Alan Torres, MAKEDA [address] [place] [address] Registered Nurse Family Medicine 05/06/25 Kaylene Luo 05/06/25 documented as of this encounter
--- OUTSIDE RECORDS SUMMARY | 2025-06-26 09:01 | XMS_ITS | Encounter Summary ---
Author Organization [employer] Address 75 [facility] 7t [place] [address] Care Team Providers Care Exposure Machine Operator Name Role Phone Cristal Muhammad PharmD Unavailable [phone] Jenny Schmidt MD Primary Care Provider [phone] Alan Torres RN Unavailable [phone] Kaylene Luo Unavailable Encounter Details Date Type Department Care Team (Late st Contact Info) Description 05/08/2025 Orders Only [facility] 230 [place], [place] [phone] Provider, MD Saumya Social History Tobacco Use [...] [facility] MED & PEDS 505 [place] [address] Cristal Muhammad, PharmD 230 [place] [address] 08/05/2025 1:45 PM EST Office Visit [facility] MED & PEDS 505 [place] [address] Jenny Schmidt MD 505 [place] [address] 08/06/2025 10:45 AM EST Office Visit [facility] MED & PEDS 505 [place] [address] Ayden Orellana MD 505 [place] [address] 08/20/2025 10:00 AM EST Clinical Support [facility] MED & PEDS 505 [place] [address] McMKatherine manzanares RN 505 [place] [address] documented as of this encounter [...] documented as of this encounter Care Teams Exposure Machine Operator Relationship Specialty Start Date End Date Jenny Schmidt MD 505 [place] [address] PCP - General Family Medicine 05/02/25 Cristal Muhammad PharmD 230 [place] [address] Pharmacist Pharmacy 08/07/24 Alan Torres RN 505 [place] [address] Registered Nurse Family Medicine 05/06/25 Kaylene Luo 05/06/25 documented as of this encounter
--- OUTSIDE RECORDS SUMMARY | 2025-06-26 09:01 | XMS_ITS | Encounter Summary ---
Author Organization [employer] Address 75 [facility] 7t [place] [address] Care Team Providers Care State Historical Society Director Name Role Phone Cristal Muhammad PharmD Unavailable [phone] Jenny Schmidt MD Primary Care Provider Alan Torres RN Unavailable [phone] Kaylene Luo Unavailable Encounter Details Date Type Department Care Team ([facility] st Contact Info) Description 05/08/2025 Results Follow-Up [facility] CHC MED & PEDS 505 [place], [place] [phone] Jenny Schmidt MD 505 [place], [place] [phone] Diabetes Eye Exam Social History Tobacco Use [...] the past 12 months, has t he [employer] gas, oil or water company threatened to [...] [facility] 505 [place] [address] Cristal Muhammad, PharmD 230 [place] [address] 08/05/2025 1:45 PM EST Office Visit [facility] MED & PEDS 505 [place] [address] Jenny Schmidt MD 505 [place] [address] 08/06/2025 10:45 AM EST Office Visit [facility] MED & PEDS 505 [place] [address] Ayden Orellana MD 505 [place] [address] 08/20/2025 10:00 AM EST Clinical Support [facility] MED & PEDS 505 [place] [address] Katherine Casper, MAKEDA 505 [place] [address] documented as of this encounter Visit Diagnoses Not on filedocumented in this encounter Additional Health Concerns Assessment Noted Time PHQ-9 Depression Total Score: 7 09/15/19 9:02 AM EDT documented as of this encounter Care Teams State Historical Society Director Relationship Specialty Start Date End Date Jenny Schmidt MD 505 [place] [address] PCP - General Family Medicine 05/02/25 Cristal Muhammad PharmD 230 [place] [address] Pharmacist Pharmacy 08/07/24 Alan Torres, MAKEDA 505 [place] [address] Registered Nurse Family Medicine 05/06/25 Kaylene Luo 05/06/25 documented as of this encounter
--- OUTSIDE RECORDS SUMMARY | 2025-06-26 09:01 | XMS_ITS | Encounter Summary ---
Author Organization [employer] Address 75 [facility] 7t [place] [address] Care Team Providers Care Script Coordinator Name Role Phone Cristal Muhammad PharmD Unavailable [phone] Jenny Schmidt MD Primary Care Provider [phone] Alan Torres RN Unavailable [phone] Kaylene Luo Unavailable Reason for Visit * Reason Onset Date Comments Med Refill 05/20/2025 Encounter Details Date Type Department Care Team (Late st Contact Info) Description 05/20/2025 Refill [facility] CH[facility] MED & PEDS [address] [place], [place] [phone] Cristal Muhammad, PharmD 230 [place] [address] Social History Tobacco Use Types Packs/Day Years [...] [facility] MED & PEDS 505 [place] [address] Cristal Muhammad, PharmD 230 [place] [address] 08/05/2025 1:45 PM EST Office Visit [facility] MED & PEDS 505 [place] [address] Jenny Schmidt MD 505 [place] [address] 08/06/2025 10:45 AM EST Office Visit [facility] MED & PEDS [address] [place] [address] Ayden Orellana MD 505 [place] [address] 08/20/2025 10:00 AM EST Clinical Support [facility] CH[facility] MED & PEDS [address] [place] [address] Katherine Casper, MAKEDA 505 [place], [place] documented as of this encounter Visit Diagnoses Not on filedocumented in this encounter Additional Health Concerns Assessment Noted Time PHQ-9 Depression Total Score: 7 09/15/19 9:02 AM EDT documented as of this encounter Care Teams Script Coordinator Relationship Specialty Start Date End Date Jenny Schmidt MD 505 [place] [address] PCP - General Family Medicine 05/02/25 Cristal Muhammad PharmD 230 [place] [address] Pharmacist Pharmacy 08/07/24 Alan Torres, MAKEDA 505 [place] [address] Registered Nurse Family Medicine 05/06/25 Kaylene Luo 05/06/25 documented as of this encounter
--- OUTSIDE RECORDS SUMMARY | 2025-06-26 09:01 | XMS_ITS | Encounter Summary ---
Author Organization [employer] Address 75 [facility] 7t [place] [address] Care Team Providers Care Design Release Engineer Name Role Phone Cristal Muhammad PharmD Unavailable [phone] Jenny Schmidt MD Primary Care Provider [phone] Alan Torres RN Unavailable [phone] Kaylene Luo Unavailable Reason for Visit * Reason Onset Date Comments Med Refill 06/17/2025 Encounter Details Date Type Department Care Team (Late st Contact Info) Description 06/17/2025 Refill [facility] CHC MED & PEDS [address] [place], [place] [phone] Cristal Muhammad, PharmD 230 [place] [address] Social History Tobacco Use Types Packs/Day Years [...] Telephone Encounter - Katherine Casper RN - 06/25/2025 2:06 PM EST TC to pt, pt advised Oxycodone prescription sent to [facility] pharm with start date 06/26/25, verbalized understanding. documented in this encounter Plan of Treatment Upcoming Encounters Date Type Department Care Team (Late st Contact Info) Description 07/29/2025 10:00 AM EST Medication Management [facility] MED & PEDS 505 [place] [address] Cristal Muhammad, PharmD 230 [place] [address] 08/05/2025 1:45 PM EST Office Visit [facility] MED & PEDS [address] [place] [address] Jenny Schmidt MD 505 [place] [address] 08/06/2025 10:45 AM EST Office Visit [facility] MED & PEDS [address] [place] [address] Ayden Orellana MD 505 [place] [address] 08/20/2025 10:00 AM EST Clinical Support [facility] MED & PEDS [address] [place] [address] Katherine Casper RN 505 [place] [address] documented as of this encounter Goals Goal [...] documented as of this encounter Care Teams Design Release Engineer Relationship Specialty Start Date End Date Jenny Schmidt MD 505 [place] [address] PCP - General Family Medicine 05/02/25 Cristal Muhammad PharmD [address] [place] [address] Pharmacist Pharmacy 08/07/24 Alan Torres, MAKEDA 505 [place] [address] Registered Nurse Family Medicine 05/06/25 Kaylene Luo 05/06/25 documented as of this encounter
--- OUTSIDE RECORDS SUMMARY | 2025-06-26 09:01 | XMS_ITS | Encounter Summary ---
Author Organization [employer] Address 75 [facility] 7t [place] [address] Care Team Providers Care Digester Name Role Phone Cristal Muhammad PharmD Unavailable [phone] Jenny Schmidt MD Primary Care Provider [phone] Alan Torres RN Unavailable [phone] Kaylene Luo Unavailable Reason for Visit * Reason Onset Date Comments Med Refill 05/20/2025 Encounter Details Date Type Department Care Team ([facility] st Contact Info) Description 05/20/2025 Refill [facility] CHC MED & PEDS [address] [place], [place] [phone] Jenny Schmidt MD 505 [place], [place] [phone] Status post surgical removal of nail matrix [...] Team ([facility] st Contact Info) Description 07/29/2025 10:00 AM EST Medication Management [facility] MED & PEDS 505 [place] [address] Cristal Muhammad, PharmD 230 [place] [address] 08/05/2025 1:45 PM EST Office Visit [facility] MED & PEDS [address] [place] [address] Jenny Schmidt MD 505 [place] [address] 08/06/2025 10:45 AM EST Office Visit [facility] MED & PEDS [address] [place] [address] Ayden Orellana MD 505 [place] [address] 08/20/2025 10:00 AM EST Clinical Support [facility] CHC MED & PEDS [address] [place] [address] Katherine Casper, MAKEDA 505 [place] [address] documented as of this encounter Visit Diagnoses Diagnosis Status post surgical removal of nail matrix of toe of left foot Pain Generalized pain documented in this encounter Additional Health Concerns Assessment Noted Time PHQ-9 Depression Total Score: 7 09/15/19 9:02 AM EDT documented as of this encounter Care Teams Digester Relationship Specialty Start Date End Date Jenny Schmidt MD 505 [place] [address] PCP - General Family Medicine 05/02/25 Cristal Muhammad PharmD [address] [place] [address] Pharmacist Pharmacy 08/07/24 Alan Torres, MAKEDA 505 [place] [address] Registered Nurse Family Medicine 05/06/25 Kaylene Luo 05/06/25 documented as of this encounter
--- OUTSIDE RECORDS SUMMARY | 2025-06-26 09:01 | XMS_ITS | Encounter Summary ---
Author Organization [employer] Address 75 [facility] 7t [place] [address] Care Team Providers Care Customer Engagement Specialist Name Role Phone Cristal Muhammad PharmD Unavailable [phone] Jenny Schmidt MD Primary Care Provider [phone] Alan Torres RN Unavailable [phone] Kaylene Luo Unavailable Reason for Visit * Reason Onset Date Comments Med Refill 05/18/2025 Encounter Details Date Type Department Care Team (Late st Contact Info) Description 05/18/2025 Refill [facility] CHC MED & PEDS [address] [place], [place] [phone] Cristal Muhammad, PharmD 230 [place] [address] Social History Tobacco Use Types Packs/Day Years [...] [facility] MED & PEDS 505 [place] [address] Cristal Muhammad, PharmD 230 [place] [address] 08/05/2025 1:45 PM EST Office Visit [facility] MED & PEDS 505 [place] [address] Jenny Schmidt MD 505 [place] [address] 08/06/2025 10:45 AM EST Office Visit [facility] MED & PEDS [address] [place] [address] Ayden Orellana MD 505 [place] [address] 08/20/2025 10:00 AM EST Clinical Support [facility] CHC MED & PEDS [address] [place] [address] Katherine Casper, MAKEDA 505 [place], [place] documented as of this encounter Visit Diagnoses Not on filedocumented in this encounter Additional Health Concerns Assessment Noted Time PHQ-9 Depression Total Score: 7 09/15/19 9:02 AM EDT documented as of this encounter Care Teams Customer Engagement Specialist Relationship Specialty Start Date End Date Jenny Schmidt MD 505 [place] [address] PCP - General Family Medicine 05/02/25 Cristal Muhammad PharmD 230 [place] [address] Pharmacist Pharmacy 08/07/24 Alan Torres, MAKEDA 505 [place] [address] Registered Nurse Family Medicine 05/06/25 Kaylene Luo 05/06/25 documented as of this encounter
--- OUTSIDE RECORDS SUMMARY | 2025-06-26 09:01 | XMS_ITS | Encounter Summary ---
Author Organization [employer] Address 75 [facility] 7t [place] [address] Care Team Providers Care Tax Manager Name Role Phone Cristal Muhammad PharmD Unavailable [phone] Jenny Schmidt MD Primary Care Provider [phone] Alan Torres RN Unavailable [phone] Kaylene Luo Unavailable Reason for Visit * Reason Onset Date Comments Med Refill 06/25/2025 Encounter Details Date Type Department Care Team ([facility] Contact Info) Description 06/25/2025 Telephone [facility] MED & PEDS 505 [place], [place] [phone] Jenny Schmidt MD 505 [place], [place] [phone] Med Refill Social History Tobacco Use Types [...] * Telephone Encounter - Alma Naik - 06/25/2025 8:34 AM EST Pt requesting refill oxycodone documented in this encounter Plan of Treatment Upcoming Encounters Date Type Department Care Team (Late st Contact Info) Description 07/29/2025 10:00 AM EST Medication Management [facility] MED & PEDS 505 [place] [address] Cristal Muhammad, Deonte 230 [place] [address] 08/05/2025 1:45 PM EST Office Visit [facility] MED & PEDS [address] [place] [address] Jenny Schmidt MD 505 [place] [address] 08/06/2025 10:45 AM EST Office Visit [facility] MED & PEDS [address] [place] [address] Ayden Orellana MD 505 [place] [address] 08/20/2025 10:00 AM EST Clinical Support [facility] MED & PEDS [address] [place] [address] Katherine Casper RN 505 [place] [address] documented as of this encounter Goals Goal [...] documented as of this encounter Care Teams Tax Manager Relationship Specialty Start Date End Date Jenny Schmidt MD 505 [place] [address] PCP - General Family Medicine 05/02/25 Cristal Muhammad, BobD 230 [place] [address] Pharmacist Pharmacy 08/07/24 Alan Torres, MAKEDA 505 [place] [address] Registered Nurse Family Medicine 05/06/25 Kaylene Luo 05/06/25 documented as of this encounter
--- OUTSIDE RECORDS SUMMARY | 2025-06-26 09:01 | XMS_ITS | Encounter Summary ---
Author Organization [employer] Address 75 [facility] 7t [place] [address] Care Team Providers Care Home Care Nurse Name Role Phone Joyce Tapia MD Primary Care Provider [phone] Cristal Muhammad PharmD Unavailable [phone] Jenny Schmidt MD Primary Care Provider [phone] Alan Torres RN Unavailable [phone] Kaylene Luo Unavailable Reason for Visit * Reason Onset Date Comments Med Refill 06/25/2024 Encounter Details Date Type Department Care Team (Late st Contact Info) Description 06/25/2024 Refill [facility] MEDICINE 230 [place] [address] Joyce Tapia MD [address] [place], [place] [phone] Status post surgical removal of nail matrix [...] [facility] MED & PEDS 505 [place] [address] Cristal Muhammad, PharmD 230 [place] [address] 08/05/2025 1:45 PM EST Office Visit [facility] MED & PEDS [address] [place] [address] Jenny Schmidt MD 505 [place] [address] 08/06/2025 10:45 AM EST Office Visit [facility] MED & PEDS [address] [place] [address] Ayden Orellana MD 505 [place] [address] 08/20/2025 10:00 AM EST Clinical Support [facility] MED & PEDS [address] [place] [address] Katherine Casper RN 505 [place] [address] documented as of this encounter Visit Diagnoses Diagnosis Status post surgical removal of nail matrix of toe of left foot documented in this encounter Care Teams Home Care Nurse Relationship Specialty Start Date End Date Joyce Tapia MD 230 [place] [address] PCP - General Family Medicine 06/19/12 05/01/25 Jenny Schmidt MD 505 [place] [address] PCP - General Family Medicine 05/02/25 Cristal Muhammad PharmD 230 [place] [address] Pharmacist Pharmacy 08/07/24 Alan Torres, MAKEDA 505 [place] [address] Registered Nurse Family Medicine 05/06/25 Kaylene Luo 05/06/25 documented as of this encounter
--- OUTSIDE RECORDS SUMMARY | 2025-06-26 09:01 | XMS_ITS | Encounter Summary ---
Author Organization [employer] Address 75 [facility] 7t [place] [address] Care Team Providers Care Arcade Game Technician Name Role Phone Joyce Tapia MD Primary Care Provider [phone] Cristal Muhammad PharmD Unavailable [phone] Jenny Schmidt MD Primary Care Provider Alan Torres RN Unavailable [phone] Kaylene Luo Unavailable Reason for Visit * Reason Onset Date Comments Med Refill 09/26/2024 Encounter Details Date Type Department Care Team (Late st Contact Info) Description 09/26/2024 Refill [facility] CHC MED & PEDS 505 [place], [place] [phone] Joyce Tapia MD 505 [place], [place] [phone] Status post surgical removal of nail matrix [...] [facility] MED & PEDS [address] [place] [address] Cristal Muhammad, PharmD 230 [place] [address] 08/05/2025 1:45 PM EST Office Visit [facility] MED & PEDS [address] [place] [address] Jenny Schmidt MD 505 [place] [address] 08/06/2025 10:45 AM EST Office Visit [facility] MED & PEDS [address] [place] [address] Ayden Orellana MD 505 [place] [address] 08/20/2025 10:00 AM EST Clinical Support [facility] CHC MED & PEDS [address] [place] [address] Katherine Casper, MAKEDA 505 [place] [address] documented as of this encounter Visit Diagnoses Diagnosis Status post surgical removal of nail matrix of toe of left foot documented in this encounter Additional Health Concerns Assessment Noted Time PHQ-9 Depression Total Score: 7 09/15/19 9:02 AM EDT documented as of this encounter Care Teams Arcade Game Technician Relationship Specialty Start Date End Date Joyce Tapia MD [address] [place] [address] PCP - General Family Medicine 06/19/12 05/01/25 Jenny Schmidt MD 505 [place] [address] PCP - General Family Medicine 05/02/25 Cristal Muhammad PharmD [address] [place] [address] Pharmacist Pharmacy 08/07/24 Alan Torres, MAKEDA 505 [place] [address] Registered Nurse Family Medicine 05/06/25 Kaylene Luo 05/06/25 documented as of this encounter
--- OUTSIDE RECORDS SUMMARY | 2025-06-26 09:01 | XMS_ITS ---
Author Organization [employer] Address 75 [facility] 7t [place] [address] Care Team Providers Care Probate Paralegal Name Role Phone Cristal Muhammad PharmD Unavailable [phone] Jenny Schmidt MD Primary Care Provider [phone] Alan Torres RN Unavailable [phone] Kaylene Luo Unavailable [facility] Status:Enrolled (Active) Start date:05/06/2025 Enrollment date:06/20/2025 Enrollment reason:ADT Feed Overview ED- Pt went to [facility] ED on 05/04/25. Case Team Name Relationship Phone Kaylene Luo(Responsible Staff) [phone] Continued Care and Services Coordination
--- OUTSIDE RECORDS SUMMARY | 2025-06-26 09:01 | XMS_ITS ---
Author Organization [employer] Address [address] [facility] 7t [place] [address] Care Team Providers Care Valve Inserter Name Role Phone Cristal Muhammad PharmD Unavailable [phone] Jenny Schmidt MD Primary Care Provider [phone] Alan Torres RN Unavailable [phone] Kaylene Luo Unavailable CM Complex Status:Enrolled (Active) Start date:05/06/2025 Enrollment date:05/27/2025 Enrollment reason:ADT Feed Overview ED- Pt went to [facility] on 05/04/25. Case Team Name Relationship Phone Alan Torres RN(Responsible Staff) Em agudelo [phone] Continued Care and Services Coordination
--- OUTSIDE RECORDS SUMMARY | 2025-06-26 09:01 | XMS_ITS | Encounter Summary ---
Author Organization [employer] Address [address] [facility] 7t [place] [address] Care Team Providers Care Nodulizer Name Role Phone Cristal Muhammad PharmD Unavailable [phone] Jenny Schmidt MD Primary Care Provider [phone] Alan Torres RN Unavailable [phone] Kaylene Luo Unavailable Reason for Visit * Reason Onset Date Comments Med Refill 06/20/2025 Encounter Details Date Type Department Care Team (Late st Contact Info) Description 06/20/2025 Refill [facility] MED & PEDS [address] [place], [place] [phone] Cristal Muhammad, PharmD [address] [place] [address] Chronic midline low back pain, unspecified whether sciatica present Social History Tobacco Use Types Packs/Day Years [...] Description 07/29/2025 10:00 AM EST Medication Management [facility]S [address] [place], [place] [phone] Cristal Muhammad, BobD [address] [place] [address] 08/05/2025 1:45 PM EST Office Visit [facility] MED & PEDS [address] [place] [address] Jenny Schmidt MD [address] [place] [address] 08/06/2025 10:45 AM EST Office Visit [facility] MED & PEDS [address] [place] [address] Ayden Orellana MD [address] [place] [address] 08/20/2025 10:00 AM EST Clinical Support [facility] MED & PEDS [address] [place] [phone] Katherine Casper RN [address] [place] [address] documented as of this encounter Goals Goal Patient Goal Type Associated Problems Recent Progress Patient-Stated? Author Help patients manage their type 2 diabetes Care Plan Help patients manage their type 2 diabetes No Katherine Casepr RN Weekly blood pressure task Care Plan [...] of this encounter Visit Diagnoses Diagnosis Chronic midline low back pain, unspecified whether sciatica present documented in this encounter Additional Health Concerns [...] documented as of this encounter Care Teams Nodulizer Relationship Specialty Start Date End Date Jenny Schmidt MD [address] [place] [address] PCP - General Family Medicine 05/02/25 Cristal Muhammad PharmD [address] [place] [address] Pharmacist Pharmacy 08/07/24 Alan Torres, MAKEDA [address] [place] [address] Registered Nurse Family Medicine 05/06/25 Kaylene Luo 05/06/25 documented as of this encounter
--- OUTSIDE RECORDS SUMMARY | 2025-06-26 09:01 | XMS_ITS | Encounter Summary ---
Author Organization [employer] Address [address] [facility] 7t [place] [address] Care Team Providers Care Hull Sorter Name Role Phone Joyce Tapia MD Primary Care Provider [phone] Cristal Muhammad PharmD Unavailable [phone] Jenny Schmidt MD Primary Care Provider [phone] Alan Torres RN Unavailable [phone] Kaylene Luo Unavailable Reason for Visit * Reason Onset Date Comments Med Refill 02/10/2025 Encounter Details Date Type Department Care Team (Late st Contact Info) Description 02/10/2025 Refill [facility] [address] [place] [phone] Myra Connors MD [address] [place], [place] [phone] Candidiasis Social History Tobacco Use Types Packs/Day [...] [facility] MED & PEDS [address] [place] [address] Cristal Muhammad, PharmD [address] [place] [address] 08/05/2025 1:45 PM EST Office Visit [facility] MED & PEDS [address] [place] [address] Jenny Schmidt MD [address] [place] [address] 08/06/2025 10:45 AM EST Office Visit [facility] MED & PEDS [address] [place] [address] Ayden Orellana MD [address] [place] [address] 08/20/2025 10:00 AM EST Clinical Support [facility] MED & PEDS [address] [place] [address] Katherine Casper, MAKEDA [address] [place] [address] documented as of this encounter Visit Diagnoses Diagnosis Candidiasis documented in this encounter Additional Health Concerns Assessment Noted Time PHQ-9 Depression Total Score: 7 09/15/19 9:02 AM EDT documented as of this encounter Care Teams Hull Sorter Relationship Specialty Start Date End Date Joyce Tapia MD [address] [place] [address] PCP - General Family Medicine 06/19/12 05/01/25 Jenny Schmidt MD [address] [place] [address] PCP - General Family Medicine 05/02/25 Cristal Muhammad PharmD [address] [place] [address] Pharmacist Pharmacy 08/07/24 Alan Torres, MAKEDA [address] [place] [address] Registered Nurse Family Medicine 05/06/25 Kaylene Luo 05/06/25 documented as of this encounter
--- OUTSIDE RECORDS SUMMARY | 2025-06-26 09:01 | XMS_ITS | Encounter Summary ---
Author Organization [employer] Address [address] [facility] 7t [place] [address] Care Team Providers Care Asset Management Analyst Name Role Phone Cristal Muhammad PharmD Unavailable [phone] Jenny Schmidt MD Primary Care Provider [phone] Alan Torres RN Unavailable [phone] Kaylene Luo Unavailable Reason for Visit * Reason Onset Date Comments Med Refill 05/05/2025 Encounter Details Date Type Department Care Team ([facility] st Contact Info) Description 05/05/2025 Refill [facility] MED & PEDS [address] [place], [place] [phone] Joyce Tapia MD [address] [place], [place] [phone] Status post surgical removal of nail matrix [...] Description 07/29/2025 10:00 AM EST Medication Management [facility] MED & PEDS [address] [place] [address] Cristal Muhammad, PharmD [address] [place] [address] 08/05/2025 1:45 PM EST Office Visit [facility] MED & PEDS [address] [place] [address] Jenny Schmidt MD [address] [place] [address] 08/06/2025 10:45 AM EST Office Visit [facility] MED & PEDS [address] [place] [address] Ayden Orellana MD [address] [place] [address] 08/20/2025 10:00 AM EST Clinical Support [facility] MED & PEDS [address] [place] [address] Katherine Casper, MAKEDA [address] [place] [address] documented as of this encounter Visit Diagnoses Diagnosis Status post surgical removal of nail matrix of toe of left foot documented in this encounter Additional Health Concerns Assessment Noted Time PHQ-9 Depression Total Score: 7 09/15/19 9:02 AM EDT documented as of this encounter Care Teams Asset Management Analyst Relationship Specialty Start Date End Date Jenny Schmidt MD [address] [place] [address] PCP - General Family Medicine 05/02/25 Cristal Muhammad PharmD [address] [place] [address] Pharmacist Pharmacy 08/07/24 Alan Torres, MAKEDA [address] [place] [address] Registered Nurse Family Medicine 05/06/25 Kaylene Luo 05/06/25 documented as of this encounter
[2025-06-26 16:29] LABS: Ferritin 73 ng/mL (10-250); Iron 100 mcg/dL (30-160); Percent Iron Saturation 36 % (15-50); Total Iron Binding Capacity 277 mcg/dL (228-428); Unsaturated Iron Binding 177 ug/dL
== END 2025-06-26 08:54 | disposition home or self-care (01) ==
LOC: HO.CHCLDS 08:53
PROVIDERS: Visit Provider Family Medicine
DX: L65.9 Nonscarring hair loss, unspecified (principal)
CPT/HCPCS: 36415; 82306; 82728; 83540; 84443